=== PATIENT | female | born 1955 | race Caucasian/White ===

== ENCOUNTER 2022-12-30 07:39 | Outpatient (OUT) | payer MEDICARE, OTHER, SELFPAY ==
[2022-12-30 10:17] LABS: Calcium 8.8 mg/dL (8.5-10.1); Estimated GFR (African America >60 (>=60); Estimated GFR (Non-African Ame >60 (>=60)
[2022-12-30 10:40] VITALS: BP 125/70; PULSE 77; RESP 18; TEMP 36.5; O2SAT 94
[2022-12-30] MEDS: DENOSUMAB 60 MG/ML SYRINGE SUBQ (10:59)
== END 2022-12-30 07:40 | disposition home or self-care (01) ==
LOC: LAB 07:39
PROVIDERS: PCP Family Medicine; Visit Provider Obstetrics & Gynecology
DX: M85.80 Other specified disorders of bone density and structure, unspecified site (principal); M19.90 Unspecified osteoarthritis, unspecified site
CPT/HCPCS: 36415; 82310; 82565; 96372; J0897

== ENCOUNTER 2023-07-07 08:25 | Emergency (ER) | payer MEDICARE, OTHER, SELFPAY ==
[2023-07-07 08:34] VITALS: BP 127/73; PULSE 61; RESP 16; TEMP 36.6; O2SAT 99; BMI 23.7
--- NOTE | 2023-07-07 08:40 | ECG_ITS ---
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
--- NOTE | 2023-07-07 08:41 | ED.CHESTPAI1 ---
HPI - Chest Pain General Chief Complaint: Chest Pain Stated Complaint: CHEST PAIN Time Seen by Provider: 07/07/23 08:39 Source: patient and family Mode of arrival: Wheelchair History of Present Illness HPI narrative: patient here with history of chest pain. She currently is undergoing chemotherapy and has a infusion pump that cycles her. She's had previous problems with the medication so they tried intravenous therapy with fluorouracil, five FEU, the patient had chest pain episodes previously while on this therapy in the center to the [facility] where she underwent extensive therapeutic testing and stress testing. They felt that she did not have any likelihood of coronary artery disease. Today, approximately 3 AM one didn't pump was infusing she woke up with severe pressure and nausea and diaphoresis. She didn't come into the emergency room until earlier this morning. She did turn the pump off and the discomfort that she was having gradually went away and at this time she does not have any pressure or discomfort at all. Twelve-lead EKG was done on arrival here does not show any evidence of ischemia or injury. Related Data Allergies Allergy/AdvReac Type Severity Reaction Status Date / Time No Known Drug Allergies Allergy Verified 07/07/23 08:36 Exam Narrative Exam Narrative: she is awake alert vital signs are stable she has no discomfort at time of exam. Several family members are present HEENT shows no jugular venous distention. Airway is widely patent with no stridor cough or difficulty breathing. Chest her lungs are completely clear with no wheezes rales or rhonchi. Heart sounds are normal no murmur or arrhythmia. Chest wall is nontender. She has no abdominal discomfort. Extremities show no evidence of swelling deep vein thrombosis or phlebitis. Constitutional Vital Signs, click to edit/add: Last Vital Signs Temp 98 F 07/07/23 08:34 Pulse 61 07/07/23 08:34 Resp 16 07/07/23 08:34 BP 127/73 07/07/23 08:34 Pulse Ox 99 07/07/23 08:34 O2 Del Method Room Air 07/07/23 08:34 Course Vital Signs Vital signs: Vital Signs Temperature 98 F 07/07/23 08:34 Pulse Rate 61 07/07/23 08:34 Respiratory Rate 16 07/07/23 08:34 Blood Pressure 127/73 07/07/23 08:34 Pulse Oximetry 99 12/29/23 08:34 Oxygen Delivery Method Room Air 07/07/23 08:34 Temperature 98 F 07/07/23 08:34 Pulse Rate 61 07/07/23 08:34 Respiratory Rate 16 07/07/23 08:34 Blood Pressure 127/73 07/07/23 08:34 Pulse Oximetry 99 07/07/23 08:34 Oxygen Delivery Method Room Air 07/07/23 08:34 MDM - Chest Pain MDM Narrative Medical decision making narrative: patient's EKG on arrival shows no evidence of ischemia injury or infarct. We did serial troponin both were normal. Her d-dimer is modestly elevated by spoke with her oncologist he does not believe she needs CTA and I would agree with that. She appears to be having coronary vasospasm from her medication. The oncologist just that she call the office to device other treatment strategies Lab Data Labs: Lab Results 07/07/23 07/07/23 Range/Units 08:52 11:07 WBC 4.8 (4.0-11.0) 10^3/uL RBC 3.71 L (4.20-5.40) 10^6/uL Hgb 10.8 L (12.0-16.0) g/dL Hct 33.4 L (36.0-48.0) % MCV 90.0 (81.0-99.0) fL MCH 29.1 (26.7-34.0) pg MCHC 32.3 (29.9-35.2) g/dL RDW 13.9 (11.0-15.0) % Plt Count 224 (150-450) 10^3/uL MPV 8.4 L (9.5-13.5) fL Neut % (Auto) 75.7 H (43.0-75.0) % Lymph % (Auto) 17.3 L (20.5-60.0) % Stanton % (Auto) 5.2 (1.7-12.0) % Eos % (Auto) 1.0 (0.9-7.0) % Baso % (Auto) 0.6 (0.2-2.0) % Neut # (Auto) 3.6 (1.4-6.5) 10^3/uL Lymph # (Auto) 0.8 L (1.2-3.8) 10^3/uL Stanton # (Auto) 0.3 (0.3-0.8) 10^3/uL Eos # (Auto) 0.1 (0.0-0.7) 10^3/uL Baso # (Auto) 0.0 (0.0-0.1) 10^3/uL Abs Immat Gran (auto) 0.01 (0.00-0.03) 10^3/uL Imm/Tot Granulo (auto) 0.2 (0.0-0.5) % D-Dimer 1.08 H* (<=0.59) mg/L FEU Sodium 142 (136-145) mmol/L Potassium 3.5 (3.5-5.1) mmol/L Chloride 104 (98-107) mmol/L Carbon Dioxide 27.2 (21.0-32.0) mmol/L Anion Gap 14.3 BUN 17.0 (7.0-18.0) mg/dL Creatinine 0.96 (0.55-1.02) mg/dL Est GFR ( Amer) >60 (>=60) Est GFR (Non-Af Amer) 58 L (>=60) BUN/Creatinine Ratio 17.7 Glucose 123 H (74-106) mg/dL Calcium 9.4 (8.5-10.1) mg/dL Total Bilirubin 0.4 (0.2-1.0) mg/dL AST 25 (15-37) U/L ALT 37 (14-59) U/L Alkaline Phosphatase 64 (46-116) U/L Troponin I High Sens 10.5 11.7 (4.0-51.3) pg/mL Total Protein 6.8 (6.4-8.2) g/dL Albumin 3.4 (3.4-5.0) g/dL Globulin 3.4 g/dL Albumin/Globulin Ratio 1.0 Discharge Plan Discharge Chief Complaint: Chest Pain Clinical Impression: Chest pain Patient Disposition: Home, Self-Care Time of Disposition Decision: 11:58 Additional Instructions: call your oncology doctor to discuss the next treatment option Stand Alone Forms: Portal Instructions Referrals: CHARLES BAZZI [Primary Care Provider] - 1 week
[2023-07-07 08:57] LABS: Basophils Percent Auto 0.6 % (0.2-2.0); Eosinophils Absolute Auto 0.1 10^3/uL (0.0-0.7); Hematocrit 33.4 % (36.0-48.0); Hemoglobin 10.8 g/dL (12.0-16.0); Immature Granulocytes Abs Auto 0.01 10^3/uL (0.00-0.03); Immature Granulocytes Pct Auto 0.2 % (0.0-0.5); Lymphocytes Absolute Auto 0.8 10^3/uL (1.2-3.8); Lymphocytes Percent Auto 17.3 % (20.5-60.0); Mean Corpuscular HGB Conc 32.3 g/dL (29.9-35.2); Mean Corpuscular Hemoglobin 29.1 pg (26.7-34.0); Mean Platelet Volume 8.4 fL (9.5-13.5); Monocytes Absolute Auto 0.3 10^3/uL (0.3-0.8); Monocytes Percent Auto 5.2 % (1.7-12.0); Neutrophils Absolute Auto 3.6 10^3/uL (1.4-6.5); Neutrophils Percent Auto 75.7 % (43.0-75.0); Platelet Count 224 10^3/uL (150-450); Red Blood Count 3.71 10^6/uL (4.20-5.40); Red Cell Distribution Width 13.9 % (11.0-15.0); White Blood Count 4.8 10^3/uL (4.0-11.0)
[2023-07-07 09:18] LABS: D Dimer 1.08 mg/L FEU (<=0.59)
[2023-07-07 09:19] LABS: Alanine Aminotransferase 37 U/L (14-59); Albumin Level 3.4 g/dL (3.4-5.0); Alkaline Phosphatase 64 U/L (46-116); Anion Gap 14.3; Aspartate Amino Transferase 25 U/L (15-37); BUN Creatinine Ratio 17.7; Bilirubin Total 0.4 mg/dL (0.2-1.0); Calcium 9.4 mg/dL (8.5-10.1); Carbon Dioxide 27.2 mmol/L (21.0-32.0); Chloride 104 mmol/L (98-107); Estimated GFR (African America >60 (>=60); Estimated GFR (Non-African Ame 58 (>=60); Globulin 3.4 g/dL; Glucose 123 mg/dL (74-106); Potassium 3.5 mmol/L (3.5-5.1); Sodium 142 mmol/L (136-145); Total Protein 6.8 g/dL (6.4-8.2); Troponin I High Sensitivity 10.5 pg/mL (4.0-51.3)
[2023-07-07 11:29] LABS: Troponin I High Sensitivity 11.7 pg/mL (4.0-51.3)
== END 2023-07-07 12:06 | disposition home or self-care (01) ==
PROVIDERS: Emergency Provider Emergency Medicine Emergency Medical Services; PCP Family Medicine
DX: R07.9 Chest pain, unspecified (principal); Z79.60 Long term (current) use of unspecified immunomodulators and immunosuppressants
CPT/HCPCS: 36415; 80053; 84484; 85025; 85378; 93005; 99284

== ENCOUNTER 2023-07-07 12:32 | Emergency (ER) | payer MEDICARE, OTHER, SELFPAY ==
[2023-07-07] VITALS (11 sets, daily range): BP systolic 135–149; BP diastolic 76–85; PULSE 60–82; RESP 12–20; TEMP 36.3; O2SAT 98–100; BMI 22.5
--- NOTE | 2023-07-07 12:55 | ED.CHESTPAI1 ---
HPI - Chest Pain General Chief Complaint: Nausea/Vomiting/Diarrhea Stated Complaint: NAUSEA Time Seen by Provider: 07/07/23 12:55 Source: patient Mode of arrival: Wheelchair Limitations: no limitations History of Present Illness HPI narrative: patient was just discharged from this emergency room was felt to have vasospastic chest pain from her chemotherapy. She was asymptomatic durring her entire stay here. She was in the parking lot and started recurring development of the chest pain.she's been told that she has that she should take nitroglycerin but has never done that previously. Related Data Allergies Allergy/AdvReac Type Severity Reaction Status Date / Time No Known Drug Allergies Allergy Verified 07/07/23 12:41 Exam Narrative Exam Narrative: wasn't cooperative. Family members she's not having discomfort at this time. She says it tends to occur when she is up and ambulatory. Limited physical examination shows her lungs still be clear heart rate and rhythm are normal she is on a monitor. A 12-lead EKG was done on arrival here does show mild T-wave inversion over lead V1 and V2 that was not present before. Rest EKG is normal. She was placed on a Nitro-Dur patch and observed. Repeat cardiac troponin was done and is negative and she remained asymptomatic. Constitutional Vital Signs, click to edit/add: Last Vital Signs Temp 97.4 F L 07/07/23 12:41 Pulse 77 07/07/23 12:41 Resp 20 07/07/23 12:41 BP 149/85 H 07/07/23 12:41 Pulse Ox 100 07/07/23 12:41 O2 Del Method Room Air 07/07/23 12:41 Course Vital Signs Vital signs: Vital Signs Temperature 97.4 F L 07/07/23 12:41 Pulse Rate 77 07/07/23 12:41 Respiratory Rate 20 07/07/23 12:41 Blood Pressure 149/85 H 07/07/23 12:41 Pulse Oximetry 100 07/07/23 12:41 Oxygen Delivery Method Room Air 07/07/23 12:41 Temperature 97.4 F L 07/07/23 12:41 Pulse Rate 77 07/07/23 12:41 Respiratory Rate 20 07/07/23 12:41 Blood Pressure 149/85 H 07/07/23 12:41 Pulse Oximetry 100 07/07/23 12:41 Oxygen Delivery Method Room Air 07/07/23 12:41 MDM - Chest Pain MDM Narrative Medical decision making narrative: after laboratory testing completed on the 2nd visit I spoke with Dr. Morfin with cardiology. He thinks the strategy of using nitrates is reasonable. He advised placing her on Imdur 30 mg. He states he'll have his office retailed to her and get her and is in the park as a appointment. In the meantime they can follow up with oncology to determine the ongoing usage of 5-FU for her lung cancer Discharge Plan Discharge Chief Complaint: Nausea/Vomiting/Diarrhea Clinical Impression: Chest pain Patient Disposition: Home, Self-Care Time of Disposition Decision: 15:15 Additional Instructions: remove patch tomorrow and then start Imdur [address]Dr. Pride's office will call you for follow-up. Stand Alone Forms: Portal Instructions Referrals: CHARLES BAZZI [Primary Care Provider] - 1 week
--- NOTE | 2023-07-07 12:57 | ECG_ITS ---
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
[2023-07-07] MEDS: NITROGLYCERIN 0.1 MG/HR PATCH.TD24 1 EACH TD (13:12)
[2023-07-07] MEDS: ASPIRIN 81 MG TAB.CHEW 162 MG PO (13:12)
[2023-07-07] MEDS: ONDANSETRON 4 MG RAPDIS TABLET SL (13:23)
[2023-07-07 13:40] LABS: Troponin I High Sensitivity 11.8 pg/mL (4.0-51.3)
== END 2023-07-07 15:28 | disposition home or self-care (01) ==
PROVIDERS: Emergency Provider Emergency Medicine Emergency Medical Services; PCP Family Medicine
DX: R07.9 Chest pain, unspecified (principal); Z79.60 Long term (current) use of unspecified immunomodulators and immunosuppressants
CPT/HCPCS: 36415; 80053; 84484; 85025; 85378; 93005; 99284

== ENCOUNTER 2024-02-21 20:26 | Outpatient (REF) | payer MEDICARE, OTHER, SELFPAY ==
--- OUTSIDE RECORDS SUMMARY | 2024-02-21 20:33 | XMS_ITS | CCD ---
Author Organization [facility] Care Team Providers Care Hull Line Crew Member Name Role Phone CHARLES BAZZI Unavailable Unavailable CHARLES BAZZI Unavailable Unavailable Caroline Rangel II Unavailable [phone] DO Charles Bazzi Primary Care Provider [phone] MD Caroline Rangel II Attending Provider [phone] Charles Bazzi Unavailable DO Charles Bazzi Primary Care Provider DO Charles Bazzi Attending Provider [phone] Charles Bazzi Unavailable Unavailable Unavailable CAROLINE RANGEL Attending Unavailable CAROLINE RANGEL Admitting Unavailable JEREMIE ., DR JHAVERI Consulting Unavailable JEREMIE ., DR JHAVERI Admitting Unavailable JEREMIE ., DR JHAVERI Attending Unavailable JEREMIE ., DR JHAVERI Consulting Unavailable JEREMIE ., DR JHAVERI Admitting Unavailable JEREMIE ., DR JHAVERI Attending Unavailable Ani Can Consulting Unavailable Tomi Greene Unavailable Unavailable Primary Care Provider Unavailabl Charles Ho Primary Care Provider Osmin KIRKPATRICK, Colleen Mathis Unavailable [phone] Cj VELASQUEZ, Darnell Unavailable Naheed Elias PA-C Unavailable [phone] DO Charles Bazzi Primary Care Provider MD Tomi Greene Attending Provider [phone] AUSTIN Rangel Emergency Provider [phone] DO Jordan Hare Admit Provider [phone] DO Jordan Hare Attending Provider KAYA Harmon Other Provider Unavailable DO Akila Stokes Other Provider MD Troy Combs Other Provider MD David Espinosa Other Provider MD Marcos Rios Other Provider MD Blas Villagomez Other Provider ROXY Wyatt Other Provider MD Amanda Mora Other Provider MD Mali Camposammed Naerlinda Other Provider MD Kandace Shah Other Provider Ernesto [facility] Arlette Church Other Provider MD Wendy Ocasio Other Provider MD Agustin Negron Attending Provider MD Darnell Corona Other Provider [phone] Charles Bazzi Primary Care Unavailabl khadra Bazzi, Dr. Charles Joseph Primary Care Unavailabl Dr. Marcos Pitts Attending Cristia marito Rios, Dr. Anna Referring Dr. Charles [facility] DO Charles Ho Primary Care Provider AUSTIN Rangel Emergency Provider DO Jordan Hare Admit Provider KAYA Harmon Other Provider Unavailable DO Akila Stokes Other Provider MD Troy Combs Other Provider MD David Espinosa Other Provider MD Marcos Rios Other Provider MD Blas Villagomez Other Provider ROXY Wyatt Other Provider MD Amanda Mora Other Provider MD Jomar Campos Other Provider MD Kandace Shah Other Provider Ernesto [facility] Arlette Church Other Provider MD Wendy Ocasio Other Provider MD Agustin Negron Attending Provider MD Darnell Corona Other Provider MD Delfino Vargas Attending Provider Charles Bazzi DO Primary Care Provider MARCOS RIOS Attending Unavailable CHARLES BAZZI R Primary Care Unavailable CHARLES BAZZI Primary Care Unavailable JACKIE SINGERISTEN Referring Unavailable AMINA MUNOZ Attending Unavailable CHARLES BAZZI Primary Care Unavailable PRACHI LOZANO Attending Unavailable JLUIS, CHARLES JOSEPH Primary Care Unavailable LAISHA SINGER Referring Unavailable KURT, SYBIL E Attending Unavailable Maryuri Limon Unavailable Unavailable DO Charles Bazzi Primary Care Provider DO Patrice Gomez Emergency Provider Unavai MD Miguel Ángel Dobson Admit Provider [phone] MD Miguel Ángel Delgadillo Attending Provider [phone] MD Tim Garduno Attending Provider [phone] MD Delfino Vargas Other Provider DO Charles Bazzi Attending Provider MD Mary Al Emergency Provider MD Patrice Hooks Admit Provider MD Patrice Hooks Attending Provider [phone] DO Jm Trujillo Attending Provider [phone] DO Ion Eckert Other Provider Jluis, Charles Joseph Primary Care Provider [phone] BAN, LAISHA Admitting Unavailable BAN, LAISHA Attending Unavailable KUNS, CHARLES OPAL Primary Care Unavailable JIMENA HUDSON Referring Unavaila ble KUNS, CHARLES OPAL Primary Care Unavailable BAN, LAISHA Admitting Unavailable BAN, LAISHA Attending Unavailable KUNS, CHARLES OPAL Primary Care Unavailable PADMINI LANCE Admitting Unavailable BAN, LAISHA Attending Unavailable Kuns, Charles Primary Care Unavailable Jordan Hare Admitting Unavailable Aggie Harmon Consulting Unavailable Agustin Negron Attending Unavailable Akila Stokes Consulting Unavailable Troy Combs Consulting Unavailable David Espinosa Consulting Unavail able Marcos Rios Consulting Unavailable Blas Villagomez Consulting Unavailab Pushpa Michel Consulting Unavailable Amanda Mora Consulting Unavailable Jomar Campos Consulting Unavailab Kandace Maciel Consulting Unavailable Arlette Orozco Consulting Unavailable Wendy Ocasio Consulting Unavailable Karamlou, Darnell Consulting Unavailable Kuns, Charles Primary Care Unavailable Patrice Hooks Admitting Unavailable Ion Eckert Consulting Unavailable Jm Trujillo Attending Unavailabl e Kuns, Charles Primary Care Unavailable Miguel Ángel Delgadillo Admitting Unavailable Tim Garduno Attending Unavailable Delfino Vargas Consulting Unavailable Delfino Vargas Admitting Unavailable Segundot Attending Unavailable Kuns, Charles Primary Care Unavailable Asaad, Imad Admitting Unavailable Asaad, Imad Attending Unavailable Kuns, Charles Primary Care Unavailable Kuns, Charles Admitting Unavailable Kuns, Charles Attending Unavailable Kuns, Charles Primary Care Unavailable KUNS, CHARLES OPAL Primary Care Unavailable KARAMLOU, DARNELL Referring Unavailable BAN, LAISHA Attending Unavailable KUNS, CHARLES OPAL Primary Care Unavailable KARAMLOU, DARNELL Referring Unavailable KUNS, CHARLES OPAL Primary Care Unavailable KUNS, CHARLES OPAL Primary Care Unavailable KARAMLOU, DARNELL Referring Unavailable KUNS, CHARLES OPAL Primary Care Unavailable KARAMLOU, DARNELL Referring Unavailable KUNS, CHARLES OPAL Primary Care Unavailable KARAMLOU, DARNELL Attending Unavailable KARAMLOU, DARNELL Referring Unavailable KUNS, CHARLES OPAL Primary Care Unavailable KARAMLOU, DARNELL Referring Unavailable KUNS, CHARLES OPAL Primary Care Unavailable KARAMLOU, DARNELL Referring Unavailable KUNS, CHARLES OPAL Primary Care Unavailable KARAMLOU, DARNELL Attending Unavailable KUNS, CHARLES OPAL Primary Care Unavailable KARAMLOU, DARNELL Referring Unavailable KUNS, CHARLES OPAL Primary Care Unavailable KARAMLOU, DARNELL Referring Unavailable KUNS, CHARLES OPAL Primary Care Unavailable Del HUDSON Attending Unavailable KUNS, CHARLES OPAL Primary Care Unavailable KUNS, CHARLES OPAL Primary Care Unavailable KARAMLOU, DARNELL Attending Unavailable KUNS, CHARLES OPAL Primary Care Unavailable KARAMLOU, DARNELL Attending Unavailable KUNS, CHARLES OPAL Primary Care Unavailable KARAMLOU, DARNELL Referring Unavailable KUNS, CHARLES OPAL Primary Care Unavailable KARAMLOU, DARNELL Referring Unavailable KUNS, CHARLES OPAL Primary Care Unavailable KARAMLOU, DARNELL Attending Unavailable KARAMLOU, DARNELL Referring Unavailable KUNS, CHARLES OPAL Primary Care Unavailable BAN, LAISHA Attending Unavailable BAN, LAISHA Referring Unavailable KUNS, CHARLES OPAL Primary Care Unavailable KUNS, CHARLES OPAL Primary Care Unavailable KUNS, CHARLES OPAL Primary Care Unavailable KARAMLOU, DARNELL Attending Unavailable KUNS, CHARLES OPAL Primary Care Unavailable KARAMLOU, DARNELL Referring Unavailable Del HUDSON Attending Unavailable KUNS, CHARLES OPAL Primary Care Unavailable Del HUDSON Attending Unavailable KUNS, CHARLES OPAL Primary Care Unavailable KARAMLOU, DARNELL Attending Unavailable KUNS, CHARLES OPAL Primary Care Unavailable KARAMLOU, DARNELL Referring Unavailable KUNS, CHARLES OPAL Primary Care Unavailable KUNS, CHARLES OPAL Primary Care Unavailable BAN, LAISHA Referring Unavailable KUNS, CHARLES OPAL Primary Care Unavailable WILLNERBRANDIE Attending Unavailable BAN, LAISHA Referring Unavailable KUNS, CHARLES OPAL Primary Care Unavailable WILLNERCHITRAYN Attending Unavailable KUNS, CHARLES OPAL Primary Care Unavailable CYNTHIA ALE Referring Unavailable BAN, LAISHA Referring Unavailable KUNS, CHARLES OPAL Primary Care Unavailable KUNS, CHARLES OPAL Primary Care Unavailable CYNTHIA, ALE Attending Unavailable CYNTHIA, ALE Referring Unavailable KUNS, CHARLES OPAL Primary Care Unavailable Del HUDSON Attending Unavailable KUNS, CHARLES OPAL Primary Care Unavailable KUNS, CHARLES OPAL Primary Care Unavailable PRINCESS MOORE Attending Unavailable KUNS, CHARLES OPAL Primary Care Unavailable Del HUDSON Attending Unavailable KUNS, CHARLES OPAL Primary Care Unavailable KUNS, CHARLES OPAL Primary Care Unavailable KUNS, CHARLES OPAL Primary Care Unavailable KUNS, CHARLES OPAL Primary Care Unavailable KUNS, CHARLES OPAL Primary Care Unavailable Del HUDSON Attending Unavailable KUNS, CHARLES OPAL Primary Care Unavailable KUNS, CHARLES OPAL Primary Care Unavailable KUNS, CHARLES OPAL Primary Care Unavailable Del HUDSON Attending Unavailable KUNS, CHARLES OPAL Primary Care Unavailable Del HUDSON Attending Unavailable KARAMLOU, DARNELL Referring Unavailable KUNS, CHARLES OPAL Primary Care Unavailable SONIDO LAISHA Attending Unavailable Del HUDSON Attending Unavailable KUNS, CHARLES OPAL Primary Care Unavailable KUNS, CHARLES OPAL Primary Care Unavailable KARAMLOU, DARNELL Attending Unavailable KUNS, CHARLES OPLA Primary Care Unavailable KUNS, CHARLES OPAL Primary Care Unavailable KUNS, CHARLES OPAL Primary Care Unavailable KUNS, CHARLES OPAL Primary Care Unavailable KUNS, CHARLES OPAL Primary Care Unavailable KUNS, CHARLES OPAL Primary Care Unavailable KUNS, CHARLES OPAL Primary Care Unavailable KUNS, CHARLES OPAL Primary Care Unavailable Del HUDSON Referring Unavailable KUNS, CHARLES OPAL Primary Care Unavailable Del HUDSON Attending Unavailable KUNS, CHARLES OPAL Primary Care Unavailable Del HUDSON Attending Unavailable KUNS, CHARLES OPAL Primary Care Unavailable KUNS, CHARLES OPAL Primary Care Unavailable KUNS, CHARLES OPAL Primary Care Unavailable KARAMLOU, DARNELL Referring Unavailable KUNS, CHARLES OPAL Primary Care Unavailable PRINCESS MOORE Referring Unavailable KUNS, CHARLES OPAL Primary Care Unavailable KUNS, CHARLES OPAL Primary Care Unavailable KUNS, CHARLES OPAL Primary Care Unavailable KUNS, CHARLES OPAL Primary Care Unavailable KUNS, CHALRES OPAL Primary Care Unavailable KUNS, CHARLES OPAL Primary Care Unavailable Del HUDSON Attending Unavailable NAVEEDS, CHARLES OPAL Primary Care Unavailable KUNS, CHARLES OPAL Primary Care Unavailable DARNELL CORONA Attending Unavailable KUNS, CHARLES OPAL Primary Care Unavailable Del HUDSON Attending Unavailable NAVEEDS, CHARLES OPAL Primary Care Unavailable KUNS, CHARLES OPAL Primary Care Unavailable PRINCESS MOORE Referring Unavailable Del HUDSON Attending Unavailable NAVEEDS, CHARLES OPAL Primary Care Unavailable KUNS, CHARLES OPAL Primary Care Unavailable KUNS, CHARLES OPAL Primary Care Unavailable DELFINO DAVIS Attending Unavailable SUDHA THAPA Attending Unavailable LIANA, OSCAR Contreras Attending Unavailable LIANA, OSCAR Contreras Referring Unavailable LIANA, OSCAR Contreras Attending Unavailable LIANA, OSCAR Contreras Attending Unavailable LIANA, OSCAR Contreras Attending Unavailable LIANA, OSCAR Contreras Referring Unavailable DELFINO DAVIS Attending Unavailable DARNELL CORONA Referring Unavailable DELFINO Crawley Attending Unavailable DELFINO Crawley Attending Unavailable DARNELL CORONA Referring Unavailable Medications Current Medications Medication Drug Class(es) Dates Sig (Normalized) Sig (Original) ALPRAZolam 0.25 mg oral tablet (20 sources) Benzodiazepine Start: 08-19-2022 End: 07-25-2023 take 1 tablet by mouth every twenty-four hours as needed ALPRAZolam (Xanax) 0.25 mg tablet Take 1 tablet (0.25 mg) by mouth once daily as needed. 0 08/19/2022 07/25/2023 Discontinued (Therapy completed) Start: 11-17-2021 take 1 tablet by jaci twice daily as needed Xanax 0.25 MG 1 tablet Orally Twice a day prn November, Active amLODIPine 5 mg / benazepril hydrochloride 10 mg oral capsule (20 sources) Dihydropyridine Calcium Channel Tanya, Angiotensin Converting Enzyme Inhibitor Start: 09-30-2023 take 1 capsule by mouth once daily Amlodipine-Benazepril Active 1 CAP PO Daily September 30, 2023 12:00am Start: 02-28-2018 End: 09-07-2023 take 1 tablet by mouth once daily Amlodipine-Benazepril Discontinued 1 TAB PO Daily November 02, 2018 12:00am September 07, 2023 9:32am Comment on above: Take 1 capsule by [facility] every morning. amoxicillin 500 mg oral tablet (20 sources) Penicillin-class Antibacterial Start: 06-13-20 23 Amoxicillin 500 mg tablet FOR DENTAL WORK 0 06/13/2023 Active Comment on above: FOR DENTAL WORK Aspir-81 81 MG (20 sources) Start: 02-29-20 18 take 1 tablet by mouth once daily Aspir-81 81 MG 1 tablet Orally Once a day Feb, Active aspirin 81 mg delayed release oral tablet (20 sources) Platelet Aggregation Inhibitor, Nonsteroidal Anti-inflammatory Drug Start: 11-03-19 19 take 81 mg by mouth once daily Aspirin Active 81 MG PO Daily November 02, 2018 12:00am Comment on above: Take 81 mg by mouth once daily. azithromycin 250 mg oral tablet (2 sources) Macrolide Antimicrobial Start: 05-25-20 21 Zithromax Z-Lazaro 250 MG 2 tablet on the first day, then 1 tablet daily for 4 days Orally Once a day for 5 day(s) May, Active Bacillus coagulan-calcium carb (DIGESTIVE ADVANTAGE PROBIOTIC) 2 billion cell- 140 mg cap (3 sources) Start: 11-10-19 End: 12-10-19 24 take 1 capsule by mouth once daily Bacillus coagulan-calcium carb (DIGESTIVE ADVANTAGE PROBIOTIC) 2 billion cell- 140 mg cap Take 1 capsule by mouth once daily. Patient should start on November 10, 2023. 30 capsule 0 11/10/2023 12/10/2023 Active Calcium Carbonate (2 sources) take 1 tablet by mouth once daily calcium carbonate (CALCIUM 500 ORAL) Take 1 tablet by mouth once daily. 0 Active Calcium 500 MG T ABS TAKE 1 TABLET DAILY. Quantity: 0 Refills: 0 Ordered: 26-Oct-2022 DO Active 1 ml denosumab 60 mg/ml prefilled syringe (14 sources) RANK Ligand Inhibitor Start: 06-26-2023 Denosuma b (Prolia) 60 mg/mL Syringe Active 60 MG SUBCUT EVERY 6 MONTHS June 26, 2023 1:00am Start: 03-06-2023 End: 04-05-2023 Denosumab (Prolia) 60 mg/mL Syringe Discontinued 60 MG SUBCUT EVERY 6 MONTHS March 06, 2023 12:00am April 05, 2023 3:37pm diclofenac sodium 0.01 mg/mg topical gel (20 sources) Nonsteroidal Anti-inflammatory Drug Start: 05-11-2022 Diclofenac Sodium 1 % 1-2 grams to affected area Externally Four times a day for 30 days May, Active Start: 02-11-2022 Voltaren 1 % a pply 1-2 grams to affected area Externally up to 4x's daily for 30 days Feb, Active Start: 02-11-2022 Voltaren 1 % a pply 1-2 grams to affected area Externally up to 4x's daily for 30 days Feb, Active 0.4 ml enoxaparin sodium 100 mg/ml prefilled syringe (6 sources) Low Molecular Weight Heparin Start: 08-30-2023 End: 09-20-2023 inject 40 mg by subcutaneous injection every twenty-four hours enoxaparin (LOVENOX) 40 mg/0.4 mL Inject 0.4 mL subcutaneously every 24 hours for 21 days. 8.4 mL 0 08/30/2023 09/20/2023 Active Comment on above: Inject 0.4 mL subcutaneously every 24 ho urs for 21 days. enteric contrast (will be provided with radiology test) (4 sources) Start: 04-28-2023 End: 04-29-2023 enteric contrast (will be provided with radiology test) MRI RECTUM WO/W. Administer, As Directed One Time Only, via Oral, Rectal, both Oral and Rectal, Enteric Tube, Stoma or Indwelling Catheter, Enteric Contrast as designated per enteric contrast guidelines 1 Each 0 04/28/2023 04/29/2023 Active Start: 03-07-2023 End: 03-08-2023 enteric contrast (will be pr ovided with radiology test) MRI RECTUM WO/W. Administer, As Directed One Time Only, via Oral, Rectal, both Oral and Rectal, Enteric Tube, Stoma or Indwelling Catheter, Enteric Contrast as designated per enteric contrast guidelines 1 Each 0 03/07/2023 03/08/2023 Start: 03-07-2023 End: 03-08-2023 enteric contrast (will be pr ovided with radiology test) MRI RECTUM WO/W. Administer, As Directed One Time Only, via Oral, Rectal, both Oral and Rectal, Enteric Tube, Stoma or Indwelling Catheter, Enteric Contrast as designated per enteric contrast guidelines 1 Each 0 03/07/2023 03/08/2023 Active Comment on above: MRI RECTUM WO/W. Adm inister, As Directed One Time Only, via Oral, Rectal, both Oral and Rectal, Enteric Tube, Stoma or Indwelling Catheter, Enteric Contrast as designated per enteric contrast guidelines iv contrast (will be provided with radiology test) (4 sources) Start: 04-28-2023 End: 04-29-2023 iv contrast (will be provided with radiology test) MRI Rectum Inject, intravenously, once for 1 dose. No IV access, insert saline lock prior to the beginning of sedation, infusion, injection of imaging exam. Discontinue saline lock post exam. If Pt has a central line or IVAD, may access for administration according to line specific nursing protocol. Once exam is complete flush line and de-access according to line specific nursing protocol in the MR contrast administration guidelines link. 1 Each 0 04/28/2023 04/29/2023 Active Start: 03-07-2023 End: 03-08-2023 iv contrast (will be provide d with radiology test) MRI Rectum Inject, intravenously, once for 1 dose. No IV access, insert saline lock prior to the beginning of sedation, infusion, injection of imaging exam. Discontinue saline lock post exam. If Pt has a central line or IVAD, may access for administration according to line specific nursing protocol. Once exam is complete flush line and de-access according to line specific nursing protocol in the MR contrast administration guidelines link. 1 Each 0 03/07/2023 03/08/2023 Start: 03-07-2023 End: 03-08-2023 iv contrast (will be provide d with radiology test) MRI Rectum Inject, intravenously, once for 1 dose. No IV access, insert saline lock prior to the beginning of sedation, infusion, injection of imaging exam. Discontinue saline lock post exam. If Pt has a central line or IVAD, may access for administration according to line specific nursing protocol. Once exam is complete flush line and de-access according to line specific nursing protocol in the MR contrast administration guidelines link. 1 Each 0 03/07/2023 03/08/2023 Active Comment on above: MRI Rectum Inject, i ntravenously, once for 1 dose. No IV access, insert saline lock prior to the beginning of sedation, infusion, injection of imaging exam. Discontinue saline lock post exam. If Pt has a central line or IVAD, may access for administration according to line specific nursing protocol. Once exam is complete flush line and de-access according to line specific nursing protocol in the MR contrast administration guidelines link. Lactobacillus Comb No.10 (Probiotic) 20 billion cell Capsule (8 sources) Start: 03-06-2023 Lactobacillus Comb No.10 (Probiotic) 20 billion cell Capsule Active 85561 MMU CELLS PO Daily March 05, 2023 11:00pm administer with a meal Start: 03-06-2023 Lactobacillus Comb No.10 (Probiotic) 20 billion cell Capsule Active 01314 MMU CELLS PO Daily March 06, 2023 12:00am administer with a meal lactobacillus combination no.4 (Probiotic) 3 billion cell capsule (1 source) End: 07-25-2023 lactobacillus combination no.4 (Probiotic) 3 billion cell capsule Take 1 capsule by mouth once daily. 0 07/25/2023 Discontinued (Therapy completed) Magnesium (20 sources) Start: 03-06-2023 take 500 mg by mouth once daily Magnesium Active 500 MG PO Daily March 05, 2023 11:00pm Start: 03-06-2023 take 500 mg by mouth once daily Magnesium Active 500 MG PO Daily March 06, 2023 12:00am End: 06-20-2023 Magnesium 250 mg tab Take 50 0 mg by mouth. 0 06/20/2023 Discontinued Magnesium 250 mg tab Take 500 mg by mouth. 0 Active Magnesium 500 MG TABS Take 1 tablet daily Quantity: 0 Refills: 0 Ordered: 26-Oct-2022 DO Active Comment on above: Take 500 mg by mouth . magnesium gluconate 500 mg oral tablet (1 source) take 1 tablet by mouth once daily magnesium, as gluconate, (Mag-G) 27 mg magnesium (500 mg) tablet Take 1 tablet (27 mg) by mouth once daily. 0 Active meloxicam 15 mg oral tablet (20 sources) Nonsteroidal Anti-inflammatory Drug Start: 02-27-2023 take 15 mg by mouth once daily Meloxicam Active 15 MG PO Daily March 06, 2023 12:00am Comment on above: Take 1 tablet by jaci th every afternoon. Take 1 tablet by jaci th once daily. Bocodwtr-Jgm-Kvlh-F a-Lutein (Multivitamin Women 50 Plus) 8 mg iron-400 mcg-300 mcg Tablet (3 sources) Start: 11-02-2018 take 1 tablet by mouth once daily Wwomajmt-Bri-Sbwy- Fa-Lutein (Multivitamin Women 50 Plus) 8 mg iron-400 mcg-300 mcg Tablet Active 1 TAB PO Daily November 01, 2018 11:00pm Start: 11-02-2018 take 1 tablet by jaci once daily Kkyfctta-Bei-Fwlw-Fa-Lutein (Multivitami n Women 50 Plus) 8 mg iron-400 mcg-300 mcg Tablet Active 1 TAB PO Daily November 02, 2018 12:00am Multivitamin Gummies Womens - (20 sources) Multivitamin Gum mies Womens - Orally Active [place] 3 Fish Oil (20 sources) Fost[place] 3 Fish Oil one oral daily Active [place] 6-Smh-Xac-Fish Oil (Fish Oil) 1,000 mg (120 mg-180 mg) Capsule (11 sources) Start: 11-02-2018 take 1 capsule by mouth once daily [place] 1-Jfg-Dmx-Fish Oil (Fish Oil) 1,000 mg (120 mg-180 mg) Capsule Active 1 CAP PO Daily November 01, 2018 11:00pm Start: 11-02-2018 take 1 capsule by mo [facility] once daily [place] 3-Qnx-Khs-Fish Oil (Fish Oil) 1,000 mg (120 mg-180 mg) Capsule Active 1 CAP PO Daily November 02, 2018 12:00am omega 9-lzi-rjg-fish oil (Fish OiL) 1,000 mg (120 mg-180 mg) capsule (1 source) take 1 capsule by mouth once daily omega 6-puj-jri-fish oil (Fish OiL) 1,000 mg (120 mg-180 mg) capsule Take 1 capsule (1,000 mg) by mouth once daily. 0 Active omeprazole 40 mg delayed release oral capsule (20 sources) Proton Pump Inhibitor Start: 07-09-20 18 End: 04-05-20 take 1 capsule by mouth once daily omeprazole (PRILOSEC) 40 mg capsule Take 40 mg by mouth once daily. 0 07/09/2018 Active Comment on above: Take 1 capsule by mo [facility] every afternoon. Take 40 mg by mouth once daily. ondansetron 8 mg disintegrating oral tablet (20 sources) Serotonin-3 Receptor Antagonist Start: 03-23-20 23 End: 02-06-20 take 1 tablet by mouth every eight hours as needed ondansetron orally disintegrating (ZOFRAN ODT) 8 mg disintegrating tablet Take 1 tablet by mouth every 8 hours as needed for nausea/vomiting. 90 tablet 2 02/06/2024 Active Start: 03-21-2023 End: 02-06-2024 take 1 tablet by mouth every eight hours as needed ondansetron (ZOFRAN) 8 mg tablet Take 1 tablet by mouth every 8 hours as needed for nausea/vomiting. 90 tablet 2 03/21/2023 02/06/2024 Discontinued Comment on above: Take 1 tablet by [facility] th every 8 hours as needed for nausea/vomiting. 24 hr oxybutynin chloride 15 mg extended release oral tablet (20 sources) Cholinergic Muscarinic Antagonist Start: take 1 tablet by mouth every twenty-four hours oxybutynin ER (DITROPAN XL) 15 mg 24 hr Extended Rel Tab Take 15 mg by mouth. 0 11/11/2022 Active Start: 02-28-2018 take 15 mg by mouth once daily Oxybutynin Chloride Active 15 MG PO Daily November 02, 2018 12:00am Comment on above: Take 15 mg by mouth. oxyCODONE hydrochloride 5 mg oral tablet (5 sources) Opioid Agonist Start: 11-09-2023 End: 11-17-2023 take 1 tablet by mouth every six hours as needed oxyCODONE IR (ROXICODONE) 5 mg immediate release tablet Indications: Post-op pain Take 1 tablet by mouth every 6 hours as needed for up to 7 days. 25 tablet 0 11/09/2023 11/17/2023 Active Start: 08-29-2023 End: 09-06-2023 take 1 tablet by mouth every six hours as needed oxyCODONE IR (ROXICODONE) 5 mg immediate release tablet Indications: Post-op pain Take 1 tablet by mouth every 6 hours as needed for up to 7 days. 25 tablet 0 08/29/2023 09/06/2023 Comment on above: Take 1 tablet by jaci th every 6 hours as needed for up to 7 days. polyethylene glycol 3350 557909 mg / potassium chloride 2970 mg / sodium bicarbonate 6740 mg / sodium chloride 5860 mg / sodium sulfate 67860 mg powder for oral solution (3 sources) Osmotic Laxative Start: 02-28-20 Golytely 236 GM At 4:00 pm the day prior to colonoscopy Orally 8 ounces every 15 minutes for 1 days PLEASE CHECK ALLERGIES Feb, Active potassium citrate 99 mg oral tablet (20 sources) End: 06-20-20 take 1 capsule by mouth once daily potassium citrate 99 mg capsule Take 1 capsule by mouth once daily. 0 Active Comment on above: Take 1 tablet by jaci th every morning. probiotic (20 sources) probiotic Active progesterone 100 mg oral capsule (14 sources) Progesterone Start: 06-26-20 take 150 mg by mouth once daily Progesterone Micronized Active 150 MG PO Daily June 26, 2023 1:00am Start: 06-26-2023 take 100 mg by mouth once daily Progesterone Micronized Active 100 MG PO Daily June 26, 2023 1:00am Start: 04-05-2023 End: 06-26-2023 Progesterone Discontinued MG IM April 05, 2023 12:00am June 26, 2023 11:50am vortioxetine 5 mg oral tablet (20 sources) Start: 03-06-2023 take 1 tablet by mouth once daily Vortioxetine (Trintellix) 5 mg tablet Active 5 MG PO Daily October 26, 2023 12:00am Start: 10-03-2022 take 1 tablet by jaci th every twenty-four hours Trintellix 10 MG 1 tablet Orally Once a day for 90 days Sep, Active Start: 09-01-2022 take 1 tablet by jaci th every twenty-four hours Trintellix 5 MG 1 tablet Orally Once a day Aug, Active vortioxetine (TR INTELLIX) 5 mg tablet Take 10 mg by mouth. 0 Active Comment on above: Take 10 mg by mouth. Take 10 mg by mouth once daily. Completed/Discontinued Medications Medication Drug Class(es) Dates Sig (Normalized) Sig (Original) acetaminophen 500 mg oral tablet (20 sources) Start: 08-29-2023 End: 02-06-2024 take 2 tablets by mouth every eight hours acetaminophen (TYLENOL) 500 mg tablet Take 2 tablets by mouth every 8 hours. 100 tablet 0 08/29/2023 02/06/2024 Discontinued Comment on above: Take 2 tablets by mo uth every 8 hours. acetaminophen 325 mg / HYDROcodone bitartrate 5 mg oral tablet (6 sources) Opioid Agonist Start: 06-26-2023 End: 09-30-2023 take 1 tablet by mouth every six hours Hydrocodone-Acetami nophen Discontinued 1 TAB PO Q6H 20 5 June 26, 2023 September 30, 2023 7:51am atropine sulfate 0.025 mg / diphenoxylate hydrochloride 2.5 mg oral tablet (1 source) Anticholinergic, Cholinergic Muscarinic Antagonist, Antidiarrheal Start: 07-12-2023 take 1 tablet by mouth four times daily as needed diphenoxylate-atrop ine (LOMOTIL) 2.5-0.025 mg per tablet Indications: Rectal adenocarcinoma (HCC) , Diarrhea of presumed infectious origin Take 1 tablet by mouth four times a day as needed for up to 30 days. 30 tablet 1 07/12/2023 Active Comment on above: Take 1 tablet by jaci th four times a day as needed for up to 30 days. bifidobacterium animalis [id number] unt / lactobacillus acidophilus [id number] unt oral capsule (1 source) Probiotic CAPS U SE DIRECTED. Quantity: 0 Refills: 0 Ordered: 26-Oct-2022 DO Active 12 hr buPROPion hydrochloride 90 mg / naltrexone hydrochloride 8 mg extended release oral tablet (6 sources) Opioid Antagonist, Aminoketone Start: 02-28-2018 take 2 tablets by mouth every twelve hours Contrave 8-90 MG 2 tablets Orally Twice a day for 30 days Feb, Not-Taking calcium carbonate 1500 mg / cholecalciferol 0.01 mg oral capsule (20 sources) Vitamin D End: 02-06-2024 take 1 tablet by mouth once daily calcium carbonate/vitamin d3(CALCIUM 600 WITH VITAMIN D3 600 MG (1,500 MG)-400 UNIT CAP) Take 1 tablet by mouth once daily. 0 02/06/2024 Discontinued calcium carbonat e/vitamin d3(CALCIUM 600 WITH VITAMIN D3 600 MG (1,500 MG)-400 UNIT CAP) Take one(1) tablet three times daily. 0 Active take 1 tablet by mouth once belinda y Calcium + D 600-200 MG-UNIT 1 tablet Orally Once a day Active Comment on above: Take one(1) tablet t hree times daily. Take 1 tablet by jaci th once daily. calcium carbonate 1250 mg / cholecalciferol 1000 unt / vitamin k 0.4 mg chewable tablet (11 sources) Vitamin D Start: 11-03-19 End: 06-26-20 take 2 tablets by mouth once daily Calcium-Vitamin D3-Vitamin K (Citracal-D3 Soft Chew) 500 mg-1,000 unit-40 mcg Tablet,Chewable Discontinued 2 TAB PO Daily November 02, 2018 12:00am June 26, 2023 11:46am capecitabine 500 mg oral tablet (20 sources) Nucleoside Metabolic Inhibitor Start: 04-05-20 End: 06-26-20 Capecitabine Discontinued MG TABLET April 05, 2023 12:00am June 26, 2023 11:48am Start: 03-21-2023 End: 04-21-2023 take 3 tablets by mouth twice daily capecitabine (XELODA) 500 mg tablet Take 3 tablets (1,500 mg) by mouth twice daily Monday through Monday only on days of radiation. 180 tablet 0 03/21/2023 04/14/2023 Discontinued Comment on above: Take 3 tablets (1,50 0 mg) by mouth twice daily Monday through Monday only on days of radiation. compounded progesterone 50 mg capsule (20 sources) End: take 3 capsules by mouth once daily at bedtime compounded progesterone 50 mg capsule Take 150 mg by mouth daily at bedtime. 0 02/06/2024 Discontinued take 3 capsules by m outh once daily at bedtime compounded progesterone 50 mg capsule Ta ke 150 mg by mouth daily at bedtime. 0 Suspended take 3 capsules by m outh once daily at bedtime compounded progesterone 50 mg capsule Ta ke 150 mg by mouth daily at bedtime. 0 Active Comment on above: Take 150 mg by mouth daily at bedtime. diclofenac sodium 50 mg / miSOPROStol 0.2 mg delayed release oral tablet (5 sources) Nonsteroidal Anti-inflammatory Drug, Prostaglandin E1 Analog Start: 009 End: 023 diclofenac sodium/misoprostol(ART HROTEC 50 50 MG-200 MCG TAB) as directed 0 02/27/2009 03/21/2023 Discontinued Comment on above: as directed docosahexaenoic acid/epa (FISH OIL ORAL) (20 sources) End: 024 take 2000 mg by mouth twice daily docosahexaenoic acid/epa (FISH OIL ORAL) Take 2,000 mg by mouth two times a day. 0 02/06/2024 Discontinued take 2000 mg by mouth twice belinda y docosahexaenoic acid/epa (FISH OIL ORAL) Take 2,000 mg by mouth two times a day. 0 Suspended take 2000 mg by mouth twice belinda y docosahexaenoic acid/epa (FISH OIL ORAL) Take 2,000 mg by mouth two times a day. 0 Active docosahexaenoic acid/epa (FISH OIL ORAL) Take by mouth. 0 Active Comment on above: Take by mouth. Take 2,000 mg by jaci th two times a day. esomeprazole 20 mg delayed release oral capsule (11 sources) Proton Pump Inhibitor Start: 11-03-19 End: 03-06-20 23 take 1 capsule by mouth once daily Esomeprazole Magnesium (Nexium) 20 mg Capsule,Delayed Release(Dr/Ec) Discontinued 20 MG PO Daily November 02, 2018 12:00am March 06, 2023 8:54am ferrous sulfate 325 mg oral tablet (7 sources) Start: 04-06-20 End: 06-26-20 take 1 tablet by mouth once daily Ferrous Sulfate (Ferosul) 325 mg (65 mg iron) tablet Discontinued 325 MG PO Daily April 06, 2023 12:00am June 26, 2023 11:48am Fish Oil CAPS (1 source) Fish Oil CAPS TA KE 1 CAPSULE Daily Quantity: 0 Refills: 0 Ordered: 26-Oct-2022 DO Active gabapentin 100 mg oral capsule (7 sources) Anti-epileptic Agent Start: 11-21-19 End: 02-06-20 24 take 1 capsule by mouth three times daily gabapentin (NEURONTIN) 100 mg capsule Take 1 capsule by mouth three times a day for 30 days. 90 capsule 0 11/21/2023 02/06/2024 Discontinued ibandronic acid 150 mg oral tablet (11 sources) Bisphosphonate Start: 11-03-19 End: 03-06-20 take 1 tablet by mouth every month Ibandronate (Boniva) 150 mg Tablet Discontinued 150 MG PO every month November 02, 2018 12:00am March 06, 2023 9:00am ibuprofen 400 mg oral tablet (8 sources) Nonsteroidal Anti-inflammatory Drug Start: 11-09-19 End: 02-06-20 24 take 1 tablet by mouth every eight hours ibuprofen (MOTRIN) 400 mg tablet Take 1 tablet by mouth every 8 hours. 20 tablet 0 11/09/2023 02/06/2024 Discontinued Lactobacillus acidophilus (20 sources) End: 06-20-20 23 Lactobacillus acidophilus (PROBIOTIC ORAL) Take by mouth. 0 06/20/2023 Discontinued Lactobacillus ac idophilus (PROBIOTIC ORAL) Take by mouth. 0 Active Comment on above: Take by mouth. loperamide hydrochloride 2 mg oral capsule (1 source) Opioid Agonist Start: 08-30-19 24 take 1 capsule by mouth at bedtime loperamide (IMODIUM) 2 mg cap(s) Take 1 capsule by mouth before meals and at bedtime. 120 capsule 1 08/30/2023 Suspended Comment on above: Take 1 capsule by mo [facility] before meals and at bedtime. MEDICATION, NON-DATABASE (20 sources) take 1 dose by mouth once daily MEDICATION, NON-DATABASE Take 1 Each by mouth once daily. Metabolic Maintenance DIM Complete - 100mg Diindolylmethane Supplement with Vitamin E, B12 + Active Folate 0 Active take 1 dose by mouth once daily MEDICATION, NON-DATABASE Take 1 Each by mouth once daily. [employer] guzman mitochondrial micronutrients and a smart combination of alpha lipoic acid, N-acetyl cysteine, and acetyl L-carnitine 0 Active Comment on above: Take 1 Each by mouth once daily. Metabolic Maintenance DIM Complete - 100mg Diindolylmethane Supplement with Vitamin E, B12 + Active Folate Take 1 Each by mouth once daily. [employer] guzman mitochondrial micronutrients and a smart combination of alpha lipoic acid, N-acetyl cysteine, and acetyl L-carnitine methylPREDNISolone 4 mg oral tablet (6 sources) Corticosteroid Start: 2020 Medrol 4 MG as directed Orally May, Not-Taking metroNIDAZOLE 500 mg oral tablet (1 source) Nitroimidazole Antimicrobial Start: 2023 take 1 tablet by mouth three times daily metroNIDAZOLE (FLAGYL) 500 mg tablet Indications: Rectal cancer (HCC) Take 1 tablet by mouth three times a day. Take 1 tablet at 6pm, 7pm, and 11pm, the evening prior to surgery. 3 tablet 0 08/03/2023 Active Comment on above: Take 1 tablet by jaci three times a day. Take 1 tablet at 6pm, 7pm, and 11pm, the evening prior to surgery. Wewzpyik-Hjt-Hfei-Fa-Vit K-Lut (Multivitamin Women 50 Plus) 8 mg iron-400 mcg-300 mcg Tablet (8 sources) Start: 2018 End: 2022 take 1 tablet by mouth once daily Wcmjxvaz-Scp-Cqbx-F a-Vit K-Lut (Multivitamin Women 50 Plus) 8 mg iron-400 mcg-300 mcg Tablet Discontinued 1 TAB PO Daily November 01, 2018 11:00pm March 06, 2023 8:01am Start: 11-02-2018 End: 03-06-2023 take 1 tablet by mouth once daily Uggdturw-Pas-Txoa-Fa-Vit K-Lut (Multivitamin Women 50 Plus) 8 mg iron-400 mcg-300 mcg Tablet Discontinued 1 TAB PO Daily November 02, 2018 12:00am March 06, 2023 9:01am naproxen 500 mg oral tablet (20 sources) Nonsteroidal Anti-inflammatory Drug Start: 11-02-2018 End: 03-06-2023 take 500 mg by mouth once daily Naproxen Discontinued 500 MG PO Daily November 02, 2018 12:00am March 06, 2023 8:56am take 1 tablet by [facility] every twelve hours at mealtime as needed Naproxen 500 MG 1 tablet with food or mi lk as needed Orally every 12 hrs for 90 days Not-Taking neomycin sulfate 500 mg oral tablet (1 source) Aminoglycoside Antibacterial Start: 08-03-2023 neomycin 500 mg tablet Indications: Rectal cancer (HCC) Take 2 tablets by mouth as directed. Take 2 tablet at 6pm, 7pm, and 11pm the evening prior to surgery. 6 tablet 0 08/03/2023 Active Comment on above: Take 2 tablets by mo [facility] as directed. Take 2 tablet at 6pm, 7pm, and 11pm the evening prior to surgery. nitroglycerin 0.4 mg sublingual tablet (20 sources) Nitrate Vasodilator Start: 07-07-2023 End: 02-06-2024 nitroglycerin sublingual (NITROQUICK) 0.4 mg SL tablet Dissolve 1 tablet under the tongue as needed for chest pain, may repeat every 5 minutes if no relief up to 3 times. 25 tablet 0 07/07/2023 02/06/2024 Discontinued (Discontinued by Patient) Comment on above: Dissolve 1 tablet un johnson the tongue as needed for chest pain, may repeat every 5 minutes if no relief up to 3 times. phenazopyridine hydrochloride 100 mg oral tablet (10 sources) Start: 05-01-2023 End: 06-20-2023 take 2 tablets by mouth every eight hours as needed phenazopyridine (PYRIDIUM) 100 mg tablet Take 2 tablets by mouth three times a day as needed. 30 tablet 2 05/01/2023 06/20/2023 Discontinued Comment on above: Take 2 tablets by mo [facility] three times a day as needed. polyethylene glycol 3350 21800 mg powder for oral solution (20 sources) Osmotic Laxative Start: 04-05-2023 End: 09-30-2023 Polyethylene Glycol 3350 (Miralax) 17 gram Powder In Packet Discontinued 17 GM PO Daily April 05, 2023 12:00am September 30, 2023 7:52am Comment on above: Take by mouth once d aily. Dissolve dose in 4 - 8 ounces of liquid and take as directed. potassium 99 mg extended release oral tablet (9 sources) Start: 03-06-2023 End: 06-26-2023 take 99 mg by mouth once daily Potassium Discontinued 99 MG PO Daily March 06, 2023 12:00am June 26, 2023 11:49am take 1 tablet by mouth once belinda y Potassium 99 MG Oral Tablet TAKE 1 TABLET DAILY. Quantity: 0 Refills: 0 Ordered: 26-Oct-2022 DO Active prochlorperazine 10 mg oral tablet (20 sources) Phenothiazine Start: 03-21-2023 End: 02-06-2024 take 1 tablet by mouth every six hours as needed prochlorperazine (COMPAZINE) 10 mg tablet Take 1 tablet by mouth every 6 hours as needed. 100 tablet 2 03/21/2023 02/06/2024 Discontinued Comment on above: [facility] hours as needed. psyllium 3400 mg powder for oral suspension (1 source) Start: 08-30-2023 take 1 dose by mouth three times daily psyllium (METAMUCIL) 3.4 gram packet Take 1 Packet by mouth three times a day. 90 Packet 1 08/30/2023 Suspended Comment on above: Take 1 Packet by jaci three times a day. 2500 mg testosterone 0.01 mg/mg topical gel (20 sources) Androgen Start: 04-05-2023 End: 09-30-2023 Testosterone Discontinued 1 PACKET TRANSDERML Daily April 05, 2023 12:00am September 30, 2023 7:52am End: 02-06-2024 Testosterone 12.5 mg/ 1.25 g heidi (1 %) glpm Apply 2 Pump as directed once daily. 0.5 MIL 0 02/06/2024 Discontinued Testosterone 12. 5 mg/ 1.25 gram (1 %) glpm Apply 4 Pump as directed once daily. 0 Active Comment on above: Apply 4 Pump as dire cted once daily. Apply 2 Pump as dire cted once daily. 0.5 MIL traMADol hydrochloride 50 mg oral tablet (11 sources) Opioid Agonist Start: 11-10-19 End: 03-06-20 take 50 mg by mouth every four hours Tramadol Discontinued 50 MG PO Q4H 20 November 09, 2018 12:00am March 06, 2023 8:57am triamcinolone acetonide 32 mg injection (20 sources) Corticosteroid Start: 02-12-20 Zilretta May, 32 mg Tumeric Curcumin Complex (11 sources) Start: 11-03-19 End: 03-06-20 take 2 capsules by mouth once daily Tumeric Curcumin Complex Discontinued 2 CAP PO Daily November 01, 2018 11:00pm March 06, 2023 8:01am Start: 11-02-2018 End: 03-06-2023 take 2 capsules by mouth once daily Tumeric Curcumin Complex Discontinued 2 CAP PO Daily November 02, 2018 12:00am March 06, 2023 9:01am Start: 11-02-2018 take 2 capsules by m outh once daily Tumeric Curcumin Complex Active 2 CAP PO Daily November 01, 2018 11:00pm Start: 11-02-2018 take 2 capsules by m outh once daily Tumeric Curcumin Complex Active 2 CAP PO Daily November 02, 2018 12:00am venlafaxine 75 mg oral tablet (20 sources) Serotonin and Norepinephrine Reuptake Inhibitor Start: 02-28-2018 End: 03-22-2023 take 75 mg by mouth once daily Venlafaxine Discontinued 75 MG PO Daily November 02, 2018 12:00am March 06, 2023 9:01am Comment on above: Take one(1) tablet d aily. Vitamin D3-Vitamin K2 (Mk4) (K2 Plus D3) 1,000-100 unit-mcg Tablet (8 sources) Start: 04-05-2023 End: 06-26-2023 take 1 tablet by mouth once daily Vitamin D3-Vitamin K2 (Mk4) (K2 Plus D3) 1,000-100 unit-mcg Tablet Discontinued 1 TAB PO Daily April 05, 2023 12:00am June 26, 2023 11:50am Start: 04-05-2023 End: 06-26-2023 take 1 tablet by mouth once daily Vitamin D3-Vitamin K2 (Mk4) (K2 Plus D3) 1,000-100 unit-mcg Tablet Discontinued 1 TAB PO Daily April 04, 2023 11:00pm June 26, 2023 10:50am Start: 04-05-2023 take 1 tablet by jaci th once daily Vitamin D3-Vitamin K2 (Mk4) (K2 Plus D3) 1,000-100 unit-mcg Tablet Active 1 TAB PO Daily April 05, 2023 12:00am vitamin D3/vitamin K2, MK4, (K2 PLUS D3 ORAL) (20 sources) End: 02-06-2024 take 1 dose by mouth once daily vitamin D3/vitamin K2, MK4, (K2 PLUS D3 ORAL) Take 1 Dose by mouth once daily. 0 02/06/2024 Discontinued take 1 dose by mouth once daily vitamin D3/vitamin K2, MK4, (K2 PLUS D3 ORAL) Take 1 Dose by mouth once daily. 0 Suspended take 1 dose by mouth once daily vitamin D3/vitamin K2, MK4, (K2 PLUS D3 ORAL) Take 1 Dose by mouth once daily. 0 Active Comment on above: Take 1 Dose by mouth once daily. Problems Active Problems Problem Classification Problem Date Documented Da te Episodic/Chronic Abdominal pain (6 sources) Indigestion; Translations: [Epigastric pain] Onset: 4 04-06-2023 Episodic Acute and unspecified renal failure (1 source) Acute kidney failure, unspecified; Translations: [JOSE MIGUEL (acute kidney injury) (HCC)] Onset: 4 Episodic Anxiety disorders (20 sources) Mixed anxiety and depressive disorder; Translations: [Other specified anxiety disorders] Onset: 4 Chronic Cancer of rectum and anus (20 sources) Adenocarcinoma of rectum; Translations: [Malignant neoplasm of rectum] Onset: 3 03-07-2023 Chronic Cancer of rectum and anus (3 sources) History of malignant neoplasm of rectum; Translations: [Personal history of other malignant neoplasm of rectum, rectosigmoid junction, and anus] 10-10-2023 Episodic Cardiac dysrhythmias (20 sources) Atrial fibrillation; Translations: [Unspecified atrial fibrillation] Onset: 4 Chronic Cardiac dysrhythmias (1 source) Cardiac dysrhythmias Onset: 7 Coronary atherosclerosis and other heart disease (1 source) Atherosclerotic heart disease of [place] coronary artery without angina pectoris; Translations: [Coronary artery disease involving [place] coronary artery of [place] heart without angina pectoris] Onset: 3 Chronic Coronary atherosclerosis and other heart disease (1 source) Coronary atherosclerosis and other heart disease Onset: 7 Diabetes mellitus without complication (9 sources) Hyperglycemia; Translations: [Hyperglycemia, unspecified] 10-17-2023 Episodic Disorders of lipid metabolism (20 sources) Hyperlipidemia; Translations: [Hyperlipidemia, unspecified] Onset: 4 Chronic Diverticulosis and diverticulitis (20 sources) Diverticular disease; Translations: [Diverticulosis of intestine, part unspecified, without perforation or abscess without bleeding] 10-27-2023 Chronic Esophageal disorders (20 sources) Gastroesophageal reflux disease; Translations: [Gastro-esophageal reflux disease without esophagitis] Onset: 4 Chronic Essential hypertension (20 sources) Essential (primary) hypertension; Translations: [Hypertensive disorder] Onset: 7 Chronic Essential hypertension (2 sources) Essential hypertension Onset: 7 Fluid and electrolyte disorders (1 source) Hypo-osmolality and hyponatremia; Translations: [Hyponatremia] Onset: 4 Episodic Gastrointestinal hemorrhage (7 sources) Blood-tinged feces; Translations: [Melena] Episodic Genitourinary symptoms and ill-defined conditions (20 sources) Female stress incontinence; Translations: [Stress incontinence (female) (male)] Chronic Nausea and vomiting (4 sources) Vomiting; Translations: [Vomiting, unspecified] Onset: 4 10-26-2023 Episodic Osteoarthritis (20 sources) Arthritis; Translations: [Unspecified osteoarthritis, unspecified site] Onset: 6 Resolved: 2 Chronic Osteoporosis (20 sources) Senile osteoporosis; Translations: [Age-related osteoporosis without current pathological fracture] 10-27-2023 Chronic Other aftercare (3 sources) Surgical follow-up; Translations: [Encounter for follow-up examination after completed treatment for conditions other than malignant neoplasm] 09-22-2023 Episodic Other aftercare (1 source) Encounter for follow-up examination after completed treatment for conditions other than malignant neoplasm; Translations: [Follow-up examination after colorectal surgery] Onset: 4 Episodic Other circulatory disease (3 sources) H/O: atrial fibrillation; Translations: [Personal history of other diseases of circulatory system] Onset: 4 07-25-2023 Episodic Other connective tissue disease (3 sources) Muscle finding; Translations: [Myalgia, unspecified site] 04-25-2023 Episodic Other disorders of stomach and duodenum (1 source) Functional dyspepsia; Translations: [Dyspepsia] Episodic Other gastrointestinal disorders (20 sources) Ileostomy present; Translations: [Ileostomy status] Onset: 4 08-31-2023 Chronic Other gastrointestinal disorders (20 sources) Ileostomy bag changed; Translations: [Encounter for attention to ileostomy] Onset: 4 08-31-2023 Chronic Other gastrointestinal disorders (4 sources) Ileostomy status; Translations: [Ileostomy status] Onset: 4 10-01-2023 Chronic Other gastrointestinal disorders (1 source) Encounter for attention to ileostomy; Translations: [Attention to ileostomy ([facility])] Onset: 4 Chronic Other gastrointestinal disorders (6 sources) Passing flatus; Translations: [Flatulence] Episodic Other gastrointestinal disorders (6 sources) Altered bowel function; Translations: [Change in bowel habit] Episodic Other gastrointestinal disorders (1 source) Change in bowel habit Episodic Other gastrointestinal disorders (1 source) Flatulence Episodic Other gastrointestinal disorders (1 source) Other specified diseases of intestine; Translations: [Colonic mass] Episodic Other gastrointestinal disorders (2 sources) Mass of colon; Translations: [Other specified diseases of intestine] Episodic Other gastrointestinal disorders (1 source) Other specified symptoms and signs involving the digestive system and abdomen; Translations: [Other symptoms involving digestive system] 01-09-2024 Episodic Other nervous system disorders (20 sources) Carpal tunnel syndrome of right wrist; Translations: [Carpal tunnel syndrome, right upper limb] Chronic Other nervous system disorders (6 sources) Acute postoperative pain; Translations: [Other acute postprocedural pain] 06-26-2023 Episodic Other nervous system disorders (1 source) Other acute postprocedural pain; Translations: [Post-op pain] Onset: 4 Episodic Other non-traumatic joint disorders (1 source) Pain in right hip joint; Translations: [Pain in right hip] 11-21-2023 Episodic Other nutritional; endocrine; and metabolic disorders (1 source) Overweight in adulthood with body mass index of 25 or more but less than 30; Translations: [Overweight] Episodic Other screening for suspected conditions (not mental disorders or infectious disease) (7 sources) Cardiovascular stress test abnormal; Translations: [Other nonspecific abnormal results of function study of cardiovascular system] Onset: 3 Resolved: 4 Episodic Residual codes; unclassified (4 sources) Asymptomatic menopausal state; Translations: [ASYMPTOMATIC MENOPAUSAL STATE] Onset: 3 Episodic Residual codes; unclassified (2 sources) Body mass index 20-24 - normal; Translations: [Body mass index (BMI) 24.0-24.9, adult] Onset: 4 07-25-2023 Episodic Residual codes; unclassified (2 sources) Body mass index (BMI) 24.0-24.9, adult; Translations: [Body mass index (BMI) 24.0-24.9, adult] Onset: 4 Episodic Unclassified (1 source) Obesity, unspecified / E66.9(ICD-9) Onset: 7 Unclassified (1 source) Pure hypercholesterolemia, unspecified / E78.00(ICD-9) Onset: 7 Unclassified (1 source) Family hx of ischem heart dis and oth dis of the circ sys / Z82.49(ICD-9) Onset: 7 Unclassified (1 source) Abnormal result of other cardiovascular function study / R94.39(ICD-9) Onset: 7 Unclassified (1 source) Diarrhea, unspecified; Translations: [Diarrhea, unspecified] Onset: 3 Urinary tract infections (5 sources) Acute urinary tract infection; Translations: [Urinary tract infection, site not specified] Onset: 4 10-26-2023 Episodic Viral infection (11 sources) COVID-19; Translations: [Pneumonia due to COVID-19 virus] 06-03-2021 Episodic Past or Other Problems Problem Classification Problem Date Documented Da te Episodic/Chronic Anal and rectal conditions (1 source) Other specified diseases of anus and rectum; Translations: [Rectal mass] Onset: 03-14-2023 Episodic Deficiency and other anemia (20 sources) Iron deficiency anemia; Translations: [Other iron deficiency anemias] Onset: 07-06-2023 08-11-2023 Episodic Genitourinary symptoms and ill-defined conditions (3 sources) Dysuria; Translations: [Dysuria] Onset: 05-01-2023 05-01-2023 Episodic Hemorrhoids (20 sources) Hemorrhoids; Translations: [Unspecified hemorrhoids] Onset: 08-09-2023 08-09-2023 Episodic Immunizations and screening for infectious disease (18 sources) Patient encounter status; Translations: [Other specified vaccination] Onset: 11-06-2022 Resolved: 08-29-2023 06-07-2023 Episodic Intestinal obstruction without hernia (20 sources) Small bowel obstruction; Translations: [Unspecified intestinal obstruction, unspecified as to partial versus complete obstruction] Onset: 08-31-2023 Resolved: 09-04-2023 08-31-2023 Episodic Melanomas of skin (20 sources) History of malignant melanoma of the skin; Translations: [Personal history of malignant melanoma of skin] Onset: 04-28-2009 04-28-2009 Episodic Nonspecific chest pain (17 sources) Chest pain; Translations: [Chest pain, unspecified] Onset: 04-05-2023 04-05-2023 Episodic Other non-traumatic joint disorders (1 source) Pain in right knee Onset: 02-11-2022 Resolved: 02-11-2022 Episodic Other non-traumatic joint disorders (1 source) Pain in left knee Onset: 02-11-2022 Resolved: 02-11-2022 Episodic Unclassified (1 source) Never smoked tobacco; Translations: [Never a smoker] Unclassified (1 source) Onset: 07-25-2023 07-25-2023 Results Test Name Value Interpretation Reference Range Facility CBC W Auto Differential pane l (Bld)on 02-06-2024 Basophils (Bld) [#/Vol] 0.04 10*3/uL Normal <0.11 [facility] Comment on above: Order Comment: Speci men Type: BLOOD SPECIMENOrdering Facility: [facility] Address: [address] [place] [address] Performed By: #### 5 7021-8 ####[facility] LABCLIA [id number] [place] [address] Basophils/100 WBC (Bld) 0.9 % Normal [facility] Comment on above: Order Comment: Speci men Type: BLOOD SPECIMENOrdering Facility: [facility] Address: [address] [place] [address] Performed By: #### 5 7021-8 ####[facility] LABCLIA [id number] [place] [address] Differential cell count method Nom (Bld) Auto Normal [facility] Comment on above: Order Comment: Speci men Type: BLOOD SPECIMENOrdering Facility: [facility] Address: [address] [place] [address] Performed By: #### 5 7021-8 ####[facility] LABCLIA [id number] [place] [address] Eosinophils (Bld) [#/Vol] 0.45 10*3/uL Normal <0.46 [facility] Comment on above: Order Comment: Speci men Type: BLOOD SPECIMENOrdering Facility: [facility] Address: [address] [place] [address] Performed By: #### 5 7021-8 ####[facility] LABCLIA [id number] [place] [address] Eosinophils/100 WBC (Bld) 10.2 % Normal [facility] Comment on above: Order Comment: Speci men Type: BLOOD SPECIMENOrdering Facility: [facility] Address: [address] [place] [address] Performed By: #### 5 7021-8 ####[facility] LABCLIA [id number] [place] [address] Erythrocyte distribution width (RBC) [Ratio] 14.1 % Normal 11.5-15.0 [facility] Comment on above: Order Comment: Speci men Type: BLOOD SPECIMENOrdering Facility: [facility] Address: [address] [place] [address] Performed By: #### 5 7021-8 ####[facility] LABCLIA [id number] [place] [address] Hematocrit (Bld) [Volume fraction] 36.0 % Normal 36.0-46.0 [facility] Comment on above: Order Comment: Speci men Type: BLOOD SPECIMENOrdering Facility: [facility] Address: [address] [place] [address] Performed By: #### 5 7021-8 ####[facility] LABCLIA [id number] [place] [address] Hemoglobin (Bld) [Mass/Vol] 11.4 g/dL Low 11.5-15.5 [facility] Comment on above: Order Comment: Speci men Type: BLOOD SPECIMENOrdering Facility: [facility] Address: [address] [place] [address] Performed By: #### 5 7021-8 ####[facility] LABCLIA [id number] [place] [address] Immature granulocytes (Bld) [#/Vol] 10*3/uL Normal <0.10 [facility] Comment on above: Order Comment: Speci men Type: BLOOD SPECIMENOrdering Facility: [facility] Address: [address] [place] [address] Performed By: #### 5 7021-8 ####[facility] LABCLIA [id number] [place] [address] Immature granulocytes/100 WBC (Bld) 0.2 % Normal [facility] Comment on above: Order Comment: Speci men Type: BLOOD SPECIMENOrdering Facility: [facility] Address: [address] [place] [address] Performed By: #### 5 7021-8 ####[facility] LABCLIA [id number] [place] [address] Lymphocytes (Bld) [#/Vol] 0.99 10*3/uL Low 1.00-4.00 [facility] Comment on above: Order Comment: Speci men Type: BLOOD SPECIMENOrdering Facility: [facility] Address: [address] [place] [address] Performed By: #### 5 7021-8 ####[facility] LABIA [id number] [place] [address] Lymphocytes/100 WBC (Bld) 22.5 % Normal [facility] Comment on above: Order Comment: Speci men Type: BLOOD SPECIMENOrdering Facility: [facility] Address: [address] [place] [address] Performed By: #### 5 7021-8 ####[facility] LABCLIA [id number] [place] [address] MCH (RBC) [Entitic mass] 28.9 pg Normal 26.0-34.0 [facility] Comment on above: Order Comment: Speci men Type: BLOOD SPECIMENOrdering Facility: [facility] Address: [address] [place] [address] Performed By: #### 5 7021-8 ####[facility] LABIA [id number] [place] [address] MCHC (RBC) [Mass/Vol] 31.7 g/dL Normal 30.5-36.0 [facility] Comment on above: Order Comment: Speci men Type: BLOOD SPECIMENOrdering Facility: [facility] Address: [address] [place] [address] Performed By: #### 5 7021-8 ####[facility] LABCLIA [id number] [place] [address] MCV (RBC) [Entitic vol] 91.4 fL Normal 80.0-100.0 [facility] Comment on above: Order Comment: Speci men Type: BLOOD SPECIMENOrdering Facility: [facility] Address: [address] [place] [address] Performed By: #### 5 7021-8 ####[facility] LABCLIA [id number] [place] [address] Monocytes (Bld) [#/Vol] 0.29 10*3/uL Normal <0.87 [facility] Comment on above: Order Comment: Speci men Type: BLOOD SPECIMENOrdering Facility: [facility] Address: [address] [place] [address] Performed By: #### 5 7021-8 ####[facility] LABCLIA [id number] [place] [address] Monocytes/100 WBC (Bld) 6.6 % Normal [facility] Comment on above: Order Comment: Speci men Type: BLOOD SPECIMENOrdering Facility: [facility] Address: [address] [place] [address] Performed By: #### 5 7021-8 ####[facility] LABCLIA [id number] [place] [address] Neutrophils (Bld) [#/Vol] 2.62 10*3/uL Normal 1.45-7.50 [facility] Comment on above: Order Comment: Speci men Type: BLOOD SPECIMENOrdering Facility: [facility] Address: [address] [place] [address] Performed By: #### 5 7021-8 ####[facility] LABCLIA [id number] [place] [address] Neutrophils/100 WBC (Bld) 59.6 % Normal [facility] Comment on above: Order Comment: Speci men Type: BLOOD SPECIMENOrdering Facility: [facility] Address: [address] [place] [address] Performed By: #### 5 7021-8 ####[facility] LABCLIA [id number] [place] [address] Nucleated RBC (Bld) [#/Vol] 10*3/uL Normal <0.01 [facility] Comment on above: Order Comment: Speci men Type: BLOOD SPECIMENOrdering Facility: [facility] Address: [address] [place] [address] Performed By: #### 5 7021-8 ####[facility] LABCLIA [id number] [place] [address] Nucleated RBC/100 WBC (Bld) [Ratio] 0.0 /100 WBC Normal [facility] Comment on above: Order Comment: Speci men Type: BLOOD SPECIMENOrdering Facility: [facility] Address: [address] [place] [address] Performed By: #### 5 7021-8 ####[facility] LABIA [id number] [place] [address] Platelet mean volume (Bld) [Entitic vol] 8.3 fL Low 9.0-12.7 [facility] Comment on above: Order Comment: Speci men Type: BLOOD SPECIMENOrdering Facility: [facility] Address: [address] [place] [address] Performed By: #### 5 7021-8 ####[facility] LABCLIA [id number] [place] [address] Platelets (Bld) [#/Vol] 258 10*3/uL Normal 150-400 [facility] Comment on above: Order Comment: Speci men Type: BLOOD SPECIMENOrdering Facility: [facility] Address: [address] [place] [address] Performed By: #### 5 7021-8 ####[facility] LABCLIA [id number] [place] [address] RBC (Bld) [#/Vol] 3.94 10*6/uL Normal 3.90-5.20 [facility] Comment on above: Order Comment: Speci men Type: BLOOD SPECIMENOrdering Facility: [facility] Address: [address] [place] [address] Performed By: #### 5 7021-8 ####[facility] LABCLIA [id number] [place] [address] WBC (Bld) [#/Vol] 4.40 10*3/uL Normal 3.70-11.00 [facility] Comment on above: Order Comment: Speci men Type: BLOOD SPECIMENOrdering Facility: [facility] Address: [address] [place] [address] Performed By: #### 5 7021-8 ####[facility] LABCLIA [id number] [place] [address] CEA SerPl-mCncon 02-06-2024 Carcinoembryonic Ag [Mass/Vol] 2.9 ng/mL Normal <=2.9 [facility] Comment on above: Order Comment: Speci men Type: BLOOD SPECIMENOrdering Facility: [facility] Address: [address] [place] [address] Result Comment: Carc inoembryonic antigen test is used as an aid in monitoring response to treatment or recurrence in patients with established colorectal, breast, lung, prostatic, pancreatic, and ovarian carcinomas. Clinical correlation is required.The Carcinoembryonic antigen test was performed using the [employer] DXI paramagnetic particle chemiluminescent immunoassay method. Results obtained with different assay methods or kits cannot be used interchangeably. Performed By: #### 2 039-6 ####[facility] LABCLIA [id number] [place] [id number] [place] CNOVSPon 02-06-2024 CNOVSP Normal [facility] CNPNon 02-06-2024 CNPN Normal [facility] Comprehensive metabolic 2000 panelon 02-06-2024 Albumin [Mass/Vol] 4.1 g/dL Normal 3.9-4.9 [facility] Comment on above: Order Comment: Speci men Type: BLOOD SPECIMENOrdering Facility: [facility] Address: [address] [place] [address] Performed By: #### 2 4323-8 ####[facility] LABCLIA [id number] [place] [address] ALP [Catalytic activity/Vol] 94 U/L Normal 34-123 [facility] Comment on above: Order Comment: Speci men Type: BLOOD SPECIMENOrdering Facility: [facility] Address: [address] [place] [address] Performed By: #### 2 4323-8 ####[facility] LABCLIA [id number] [place] [address] ALT [Catalytic activity/Vol] 12 U/L Normal 7-38 [facility] Comment on above: Order Comment: Speci men Type: BLOOD SPECIMENOrdering Facility: [facility] Address: [address] [place] [address] Performed By: #### 2 4323-8 ####[facility] LABCLIA [id number] [place] [address] Anion gap [Moles/Vol] 12 mmol/L Normal 8-15 [facility] Comment on above: Order Comment: Speci men Type: BLOOD SPECIMENOrdering Facility: [facility] Address: [address] [place] [address] Performed By: #### 2 4323-8 ####[facility] LABCLIA [id number] [place] [address] AST [Catalytic activity/Vol] 15 U/L Normal 13-35 [facility] Comment on above: Order Comment: Speci men Type: BLOOD SPECIMENOrdering Facility: [facility] Address: [address] [place] [address] Performed By: #### 2 4323-8 ####[facility] LABCLIA [id number] [place] [address] Bilirubin [Mass/Vol] 0.3 mg/dL Normal 0.2-1.3 [facility] Comment on above: Order Comment: Speci men Type: BLOOD SPECIMENOrdering Facility: [facility] Address: [address] [place] [address] Performed By: #### 2 4323-8 ####[facility] LABCLIA [id number] [place] [address] Calcium [Mass/Vol] 9.5 mg/dL Normal 8.5-10.2 [facility] Comment on above: Order Comment: Speci men Type: BLOOD SPECIMENOrdering Facility: [facility] Address: [address] [place] [address] Performed By: #### 2 4323-8 ####[facility] LABCLIA [id number] [place] [address] Chloride [Moles/Vol] 106 mmol/L Normal 98-107 [facility] Comment on above: Order Comment: Speci men Type: BLOOD SPECIMENOrdering Facility: [facility] Address: [address] [place] [address] Performed By: #### 2 4323-8 ####[facility] LABCLIA [id number] [place] [address] CO2 [Moles/Vol] 26 mmol/L Normal 22-30 [facility] Comment on above: Order Comment: Speci men Type: BLOOD SPECIMENOrdering Facility: [facility] Address: [address] [place] [address] Performed By: #### 2 4323-8 ####[facility] LABCLIA [id number] [place] [address] Creatinine [Mass/Vol] 0.75 mg/dL Normal 0.58-0.96 [facility] Comment on above: Order Comment: Speci men Type: BLOOD SPECIMENOrdering Facility: [facility] Address: [address] [place] [address] Performed By: #### 2 4323-8 ####[facility] LABCLIA [id number] [place] [address] Creatinine and Glomerular filtration rate.predicted panel (S/P/Bld) 86 mL/min/1.73m??? Normal >=60 [facility] Comment on above: Order Comment: Moyi tatiana Type: BLOOD SPECIMENOrdering Facility: [facility] Address: [address] [place] [address] Result Comment: Farhana mated Glomerular Filtration Rate (eGFR) is calculated using the 2020 CKD-EPI creatinine equation. This equation utilizes serum creatinine, sex, and age as parameters. The creatinine assay has traceable calibration to isotope dilution-mass spectrometry. Refer to KDIGO guidelines for clinical interpretation. In patients with unstable renal function, e.g. those with acute kidney injury, the eGFR may not accurately reflect actual GFR. Performed By: #### 2 4323-8 ####[facility] LABCLIA [id number] [place] [address] Glucose [Mass/Vol] 99 mg/dL Normal 74-99 [facility] Comment on above: Order Comment: Mason simpson Type: BLOOD SPECIMENOrdering Facility: [facility] Address: [address] [place] [address] Result Comment: The [place] Diabetes Association (ADA) provides guidance for cutoff values for fasting glucose and random glucose. The ADA defines fasting as no caloric intake for at least 8 hours. Fasting plasma glucose results between 100 to 125 mg/dL indicate increased risk for diabetes (prediabetes).Fasting plasma glucose results greater than or equal to 126 mg/dL meet the criteria for diagnosis of diabetes. In the absence of unequivocal hyperglycemia, results should be confirmed by repeat testing. In a patient with classic symptoms of hyperglycemia or hyperglycemic crisis, random plasma glucose results greater than or equal to 200 mg/dL meet the criteria for diagnosis of diabetes.Reference: Standards of Medical Care in Diabetes 2016, [place] [employer]. Diabetes Care. 2016.39(Suppl 1). Performed By: #### 2 4323-8 ####[facility] LABCLIA [id number] [place] [address] Potassium [Moles/Vol] 4.5 mmol/L Normal 3.7-5.1 [facility] Comment on above: Order Comment: Speci men Type: BLOOD SPECIMENOrdering Facility: [facility] Address: [address] [place] [address] Performed By: #### 2 4323-8 ####[facility] LABCLIA [id number] [place] [address] Protein [Mass/Vol] 6.5 g/dL Normal 6.3-8.0 [facility] Comment on above: Order Comment: Speci men Type: BLOOD SPECIMENOrdering Facility: [facility] Address: [address] [place] [address] Performed By: #### 2 4323-8 ####[facility] LABCLIA [id number] [place] [address] Sodium [Moles/Vol] 144 mmol/L Normal 136-144 [facility] Comment on above: Order Comment: Speci men Type: BLOOD SPECIMENOrdering Facility: [facility] Address: [address] [place] [address] Performed By: #### 2 4323-8 ####[facility] LABCLIA [id number] [place] [address] Urea nitrogen [Mass/Vol] 17 mg/dL Normal 7-21 [facility] Comment on above: Order Comment: Speci men Type: BLOOD SPECIMENOrdering Facility: [facility] Address: [address] [place], [place] [address] Performed By: #### 2 4323-8 ####[facility] LABCLIA [id number] [place] [address] CNPNon 01-16-2024 CNPN Normal [facility] CNOVon 01-09-2024 CNOV Normal [facility] CNPNon 01-08-2024 CNPN Normal [facility] CNPNon 12-12-2023 CNPN Normal [facility] CNOVon 11-24-2023 CNOV Normal [facility] CNPNon 11-13-2023 CNPN Normal [facility] Basic metabolic 2000 panelon 11-10-2023 Anion gap [Moles/Vol] 11 mmol/L Normal 9-18 [facility] Comment on above: Order Comment: Speci men Type: BLOOD SPECIMENOrdering Facility: [facility] Address: [address] [place] [address] Performed By: #### 2 4321-2, 2776-07, ####[facility]ORATORYCLIA [id number] [place] [id number] [place] Calcium [Mass/Vol] 9.0 mg/dL Normal 8.5-10.2 [facility] Comment on above: Order Comment: Speci men Type: BLOOD SPECIMENOrdering Facility: [facility] Address: [address] [place] [address] Performed By: #### 2 4321-2, 2776-07, ####[facility] LABORATORYCLIA [id number] [place] [address] [place] Chloride [Moles/Vol] 102 mmol/L Normal 97-105 [facility] Comment on above: Order Comment: Speci men Type: BLOOD SPECIMENOrdering Facility: [facility] Address: [address] [place], [place] [address] Performed By: #### 2 4321-2, 2776-07, ####[facility]ORATORYCLIA [id number] [place] [address] [place] CO2 [Moles/Vol] 28 mmol/L Normal 22-30 [facility] Comment on above: Order Comment: Speci men Type: BLOOD SPECIMENOrdering Facility: [facility] Address: [address] [place], [place] [address] Performed By: #### 2 4321-2, 2776-07, ####[facility] [facility] LABORATORYCLIA [id number] [place] [address] [place] Creatinine [Mass/Vol] 0.60 mg/dL Normal 0.58-0.96 [facility] Comment on above: Order Comment: Mason simpson Type: BLOOD SPECIMENOrdering Facility: [facility] Address: [address] [place] [address] Performed By: #### 2 4321-2, 2777-1, ####[facility]ORATORYCLIA [id number] [place] [address] [place] Creatinine and Glomerular filtration rate.predicted panel (S/P/Bld) 97 mL/min/1.73m??? Normal >=60 [facility] Comment on above: Order Comment: Mason simpson Type: BLOOD SPECIMENOrdering Facility: [facility] Address: [address] [place] [address] Result Comment: Farhana mated Glomerular Filtration Rate (eGFR) is calculated using the 2020 CKD-EPI creatinine equation. This equation utilizes serum creatinine, sex, and age as parameters. The creatinine assay has traceable calibration to isotope dilution-mass spectrometry. Refer to KDIGO guidelines for clinical interpretation. In patients with unstable renal function, e.g. those with acute kidney injury, the eGFR may not accurately reflect actual GFR. Performed By: #### 2 4321-2, 2777-, ####[facility]ORATORYCLIA [id number] [place] [id number] [place] Glucose [Mass/Vol] 101 mg/dL High 74-99 [facility] Comment on above: Order Comment: Mason simpson Type: BLOOD SPECIMENOrdering Facility: [facility] Address: [address] [place] [address] Result Comment: The [place] Diabetes Association (ADA) provides guidance for cutoff values for fasting glucose and random glucose. The ADA defines fasting as no caloric intake for at least 8 hours. Fasting plasma glucose results between 100 to 125 mg/dL indicate increased risk for diabetes (prediabetes).Fasting plasma glucose results greater than or equal to 126 mg/dL meet the criteria for diagnosis of diabetes. In the absence of unequivocal hyperglycemia, results should be confirmed by repeat testing. In a patient with classic symptoms of hyperglycemia or hyperglycemic crisis, random plasma glucose results greater than or equal to 200 mg/dL meet the criteria for diagnosis of diabetes.Reference: Standards of Medical Care in Diabetes 2016, [place] [employer]. Diabetes Care. 2016.39(Suppl 1). Performed By: #### 2 4321-2, 2776-07, ####[facility]ORATORYCLIA [id number] [place] [address] [place] Potassium [Moles/Vol] 3.5 mmol/L Low 3.7-5.1 [facility] Comment on above: Order Comment: Mason simpson Type: BLOOD SPECIMENOrdering Facility: [facility] Address: [address] [place] [address] Performed By: #### 2 4321-2, 2776-07, ####[facility]ORATORYCLIA [id number] [place] [id number] [place] Sodium [Moles/Vol] 141 mmol/L Normal 136-144 [facility] Comment on above: Order Comment: Mason simpson Type: BLOOD SPECIMENOrdering Facility: [facility] Address: [address] [place] [address] Performed By: #### 2 4321-2, 2776-07, ####[facility]ORATORYCLIA [id number] [place] [id number] [place] Urea nitrogen [Mass/Vol] 8 mg/dL Normal 7-21 [facility] Comment on above: Order Comment: Mason simpson Type: BLOOD SPECIMENOrdering Facility: [facility] Address: [address] [place] [address] Performed By: #### 2 4321-2, 2776-07, ####[facility] LABORATORYCLIA [id number] [place] [id number] [place] CBC panel Auto (Bld)on 11-09 Erythrocyte distribution width (RBC) [Ratio] 13.8 % Normal 11.5-15.0 [facility] Comment on above: Order Comment: Mason simpson Type: BLOOD SPECIMENOrdering Facility: [facility] Address: [address] [place] [address] Performed By: #### 5 8410-2 ####[facility] LABORATORYCLIA [id number] [place] [address] [place] Hematocrit (Bld) [Volume fraction] 32.4 % Low 36.0-46.0 [facility] Comment on above: Order Comment: Speci men Type: BLOOD SPECIMENOrdering Facility: [facility] Address: [address] [place] [address] Performed By: #### 5 8410-2 ####[facility] LABORATORYCLIA [id number] [place] [address] [place] Hemoglobin (Bld) [Mass/Vol] 10.7 g/dL Low 11.5-15.5 [facility] Comment on above: Order Comment: Speci men Type: BLOOD SPECIMENOrdering Facility: [facility] Address: [address] [place] [address] Performed By: #### 5 8410-2 ####[facility] LABORATORYCLIA [id number] [address] [place] MCH (RBC) [Entitic mass] 29.6 pg Normal 26.0-34.0 [facility] Comment on above: Order Comment: Speci men Type: BLOOD SPECIMENOrdering Facility: [facility] Address: [address] [place] [address] Performed By: #### 5 8410-2 ####[facility]ORATORYCLIA [id number] [address] [place] MCHC (RBC) [Mass/Vol] 33.0 g/dL Normal 30.5-36.0 [facility] Comment on above: Order Comment: Speci men Type: BLOOD SPECIMENOrdering Facility: [facility] Address: [address] [place] [address] Performed By: #### 5 8410-2 ####[facility] LABORATORYCLIA [id number] [address] [place] MCV (RBC) [Entitic vol] 89.5 fL Normal 80.0-100.0 [facility] Comment on above: Order Comment: Speci men Type: BLOOD SPECIMENOrdering Facility: [facility] Address: [address] [place] [address] Performed By: #### 5 8410-2 ####[facility]ORATORYCLIA [id number] [place] [id number] [place] Nucleated RBC (Bld) [#/Vol] 10*3/uL Normal <0.01 [facility] Comment on above: Order Comment: Speci men Type: BLOOD SPECIMENOrdering Facility: [facility] Address: [address] [place] [address] Performed By: #### 5 8410-2 ####[facility]ORATORYCLIA [id number] [place] [id number] [place] Platelet mean volume (Bld) [Entitic vol] 8.8 fL Low 9.0-12.7 [facility] Comment on above: Order Comment: Speci men Type: BLOOD SPECIMENOrdering Facility: [facility] Address: [address] [place] [address] Performed By: #### 5 8410-2 ####[facility] LABORATORYCLIA [id number] [place] [address] [place] Platelets (Bld) [#/Vol] 285 10*3/uL Normal 150-400 [facility] Comment on above: Order Comment: Speci men Type: BLOOD SPECIMENOrdering Facility: [facility] Address: [address] [place] [address] Performed By: #### 5 8410-2 ####[facility] LABORATORYCLIA [id number] [place] [id number] [place] RBC (Bld) [#/Vol] 3.62 10*6/uL Low 3.90-5.20 [facility] Comment on above: Order Comment: Speci men Type: BLOOD SPECIMENOrdering Facility: [facility] Address: [address] [place] [address] Performed By: #### 5 8410-2 ####[facility] LABORATORYCLIA [id number] [place] [id number] [place] WBC (Bld) [#/Vol] 7.91 10*3/uL Normal 3.70-11.00 [facility] Comment on above: Order Comment: Speci men Type: BLOOD SPECIMENOrdering Facility: [facility] Address: [address] [place] [address] Performed By: #### 5 8410-2 ####[facility] LABORATORYCLIA [id number] [place] [id number] [facility] [place] Magnesium SerPl-mCncon 11-09 Magnesium [Mass/Vol] 1.9 mg/dL Normal 1.7-2.3 [facility] Comment on above: Order Comment: Speci men Type: BLOOD SPECIMENOrdering Facility: [facility] Address: [address] [place] [address] Performed By: #### 2 4321-2, 2777-1, 01865-9 ####[facility] LABORATORYCLIA [id number] [place] [id number] [place] Phosphate SerPl-mCncon 11-09 Phosphate [Mass/Vol] 3.0 mg/dL Normal 2.7-4.8 [facility] Comment on above: Order Comment: Speci men Type: BLOOD SPECIMENOrdering Facility: [facility] Address: [address] [place] [address] Performed By: #### 2 4321-2, 2777-1, 14708-4 ####[facility] LABORATORYCLIA [id number] [place] [id number] [place] Basic metabolic 2000 panelon 11-09-2023 Anion gap [Moles/Vol] 12 mmol/L Normal 9-18 [facility] Comment on above: Order Comment: Speci men Type: BLOOD SPECIMENOrdering Facility: [facility] Address: [address] [place] [address] Performed By: #### 2 777-1, 47529-1, 87928-1 ####[facility] LABORATORYCLIA [id number] [place] [id number] [place] Calcium [Mass/Vol] 9.3 mg/dL Normal 8.5-10.2 [facility] Comment on above: Order Comment: Speci men Type: BLOOD SPECIMENOrdering Facility: [facility] Address: [address] [place] [address] Performed By: #### 2 777-1, , ####[facility] LABORATORYCLIA [id number] [place] [address] [place] Chloride [Moles/Vol] 100 mmol/L Normal 97-105 [facility] Comment on above: Order Comment: Speci men Type: BLOOD SPECIMENOrdering Facility: [facility] Address: [address] [place] [address] Performed By: #### 2 777-1, , ####[facility] LABORATORYCLIA [id number] [place] [address] [place] CO2 [Moles/Vol] 27 mmol/L Normal 22-30 [facility] Comment on above: Order Comment: Speci men Type: BLOOD SPECIMENOrdering Facility: [facility] Address: [address] [place] [address] Performed By: #### 2 777-1, , ####[facility] LABORATORYCLIA [id number] [place] [id number] [place] Creatinine [Mass/Vol] 0.64 mg/dL Normal 0.58-0.96 [facility] Comment on above: Order Comment: Speci men Type: BLOOD SPECIMENOrdering Facility: [facility] Address: [address] [place] [address] Performed By: #### 2 777-1, , ####[facility] LABORATORYCLIA [id number] [place] [id number] [place] Creatinine and Glomerular filtration rate.predicted panel (S/P/Bld) 95 mL/min/1.73m??? Normal >=60 [facility] Comment on above: Order Comment: Speci men Type: BLOOD SPECIMENOrdering Facility: [facility] Address: [address] [place] [address] Result Comment: Farhana mated Glomerular Filtration Rate (eGFR) is calculated using the 2020 CKD-EPI creatinine equation. This equation utilizes serum creatinine, sex, and age as parameters. The creatinine assay has traceable calibration to isotope dilution-mass spectrometry. Refer to KDIGO guidelines for clinical interpretation. In patients with unstable renal function, e.g. those with acute kidney injury, the eGFR may not accurately reflect actual GFR. Performed By: #### 2 777-1, , 94194-0 ####[facility] LABORATORYCLIA [id number] [place] [id number] [place] Glucose [Mass/Vol] 122 mg/dL High 74-99 [facility] Comment on above: Order Comment: Mason simpson Type: BLOOD SPECIMENOrdering Facility: [facility] Address: [address] [place] [address] Result Comment: The [place] Diabetes [employer] (ADA) provides guidance for cutoff values for fasting glucose and random glucose. The ADA defines fasting as no caloric intake for at least 8 hours. Fasting plasma glucose results between 100 to 125 mg/dL indicate increased risk for diabetes (prediabetes).Fasting plasma glucose results greater than or equal to 126 mg/dL meet the criteria for diagnosis of diabetes. In the absence of unequivocal hyperglycemia, results should be confirmed by repeat testing. In a patient with classic symptoms of hyperglycemia or hyperglycemic crisis, random plasma glucose results greater than or equal to 200 mg/dL meet the criteria for diagnosis of diabetes.Reference: Standards of Medical Care in Diabetes 2016, [place] [employer]. Diabetes Care. 2016.39(Suppl 1). Performed By: #### 2 777-1, , 89571-6 ####[facility] LABORATORYCLIA [id number] [place] [id number] [place] Potassium [Moles/Vol] 3.9 mmol/L Normal 3.7-5.1 [facility] Comment on above: Order Comment: Mason simpson Type: BLOOD SPECIMENOrdering Facility: [facility] Address: [address] [place] [address] Performed By: #### 2 777-1, , 16633-0 ####[facility] LABORATORYCLIA [id number] [place] [id number] [place] Sodium [Moles/Vol] 139 mmol/L Normal 136-144 [facility] Comment on above: Order Comment: Speci men Type: BLOOD SPECIMENOrdering Facility: [facility] Address: [address] [place] [address] Performed By: #### 2 777-1, 31531-8, 83423-8 ####[facility] LABORATORYCLIA [id number] [place] [address] [place] Urea nitrogen [Mass/Vol] 8 mg/dL Normal 7-21 [facility] Comment on above: Order Comment: Speci men Type: BLOOD SPECIMENOrdering Facility: [facility] Address: [address] [place] [address] Performed By: #### 2 777-1, , 73992-8 ####[facility] LABORATORYCLIA [id number] [place] [id number] [place] CASE MGT INIT ASSESon 2023 CASE MGT INIT ASSES Normal [facility] CBC panel Auto (Bld)on 11-08 Erythrocyte distribution width (RBC) [Ratio] 13.5 % Normal 11.5-15.0 [facility] Comment on above: Order Comment: Speci men Type: BLOOD SPECIMENOrdering Facility: [facility] Address: [address] [place] [address] Performed By: #### 5 8410-2 ####[facility] LABORATORYCLIA [id number] [place] [id number] [place] Hematocrit (Bld) [Volume fraction] 32.2 % Low 36.0-46.0 [facility] Comment on above: Order Comment: Speci men Type: BLOOD SPECIMENOrdering Facility: [facility] Address: [address] [place] [address] Performed By: #### 5 8410-2 ####[facility] LABORATORYCLIA [id number] [place] [id number] [place] Hemoglobin (Bld) [Mass/Vol] 11.2 g/dL Low 11.5-15.5 [facility] Comment on above: Order Comment: Speci men Type: BLOOD SPECIMENOrdering Facility: [facility] Address: [address] [place] [address] Performed By: #### 5 8410-2 ####[facility] LABORATORYCLIA [id number] [address] [place] MCH (RBC) [Entitic mass] 30.4 pg Normal 26.0-34.0 [facility] Comment on above: Order Comment: Speci men Type: BLOOD SPECIMENOrdering Facility: [facility] Address: [address] [place] [address] Performed By: #### 5 8410-2 ####[facility] LABORATORYCLIA [id number] [address] [place] MCHC (RBC) [Mass/Vol] 34.8 g/dL Normal 30.5-36.0 [facility] Comment on above: Order Comment: Speci men Type: BLOOD SPECIMENOrdering Facility: [facility] Address: [address] [place] [address] Performed By: #### 5 8410-2 ####[facility] LABORATORYCLIA [id number] [address] [place] MCV (RBC) [Entitic vol] 87.5 fL Normal 80.0-100.0 [facility] Comment on above: Order Comment: Speci men Type: BLOOD SPECIMENOrdering Facility: [facility] Address: [address] [place] [address] Performed By: #### 5 8410-2 ####[facility] LABORATORYCLIA [id number] [address] [place] Nucleated RBC (Bld) [#/Vol] 10*3/uL Normal <0.01 [facility] Comment on above: Order Comment: Speci men Type: BLOOD SPECIMENOrdering Facility: [facility] Address: [address] [place] [address] Performed By: #### 5 8410-2 ####[facility] LABORATORYCLIA [id number] [place] [id number] [place] Platelet mean volume (Bld) [Entitic vol] 8.3 fL Low 9.0-12.7 [facility] Comment on above: Order Comment: Speci men Type: BLOOD SPECIMENOrdering Facility: [facility] Address: [address] [place] [address] Performed By: #### 5 8410-2 ####[facility] LABORATORYCLIA [id number] [place] [id number] [place] Platelets (Bld) [#/Vol] 270 10*3/uL Normal 150-400 [facility] Comment on above: Order Comment: Speci men Type: BLOOD SPECIMENOrdering Facility: [facility] Address: [address] [place] [address] Performed By: #### 5 8410-2 ####[facility] LABORATORYCLIA [id number] [place] [address] [place] RBC (Bld) [#/Vol] 3.68 10*6/uL Low 3.90-5.20 [facility] Comment on above: Order Comment: Speci men Type: BLOOD SPECIMENOrdering Facility: [facility] Address: [address] [place] [address] Performed By: #### 5 8410-2 ####[facility] LABORATORYCLIA [id number] [place] [address] [place] WBC (Bld) [#/Vol] 8.53 10*3/uL Normal 3.70-11.00 [facility] Comment on above: Order Comment: Speci men Type: BLOOD SPECIMENOrdering Facility: [facility] Address: [address] [place] [address] Performed By: #### 5 8410-2 ####[facility] LABORATORYCLIA [id number] [place] [id number] [place] CNDSon 11-09-2023 CNDS Normal [facility] Magnesium SerPl-mCncon 11-08 Magnesium [Mass/Vol] 1.6 mg/dL Low 1.7-2.3 [facility] Comment on above: Order Comment: Speci men Type: BLOOD SPECIMENOrdering Facility: [facility] Address: [facility] [place] [address] Performed By: #### 2 777-1, , ####[facility] LABORATORYCLIA [id number] [place] [id number] [place] PT EDon 11-09-2023 PT ED Normal [facility] Phosphate SerPl-mCncon 11-08 Phosphate [Mass/Vol] 2.5 mg/dL Low 2.7-4.8 [facility] Comment on above: Order Comment: Speci men Type: BLOOD SPECIMENOrdering Facility: [facility] Address: [address] [place] [address] Performed By: #### 2 777-1, , ####[facility] LABORATORYCLIA [id number] [place] [address] [place] ANES POSTPROC EVALon 024 ANES POSTPROC EVAL Normal [facility] ANES PRE-OPon 11-08-2023 ANES PRE-OP Normal [facility] BRIEF OP NOTon 11-08-2023 BRIEF OP NOT Normal [facility] Basic metabolic 2000 panelon 11-08-2023 Anion gap [Moles/Vol] 21 mmol/L High 9-18 [facility] Comment on above: Order Comment: Speci men Type: BLOOD SPECIMENOrdering Facility: [facility] Address: [facility] [place] [address] Performed By: #### H STNT, ####[facility] LABORATORYCLIA [id number] [place] [id number] [place] Calcium [Mass/Vol] 8.7 mg/dL Normal 8.5-10.2 [facility] Comment on above: Order Comment: Speci men Type: BLOOD SPECIMENOrdering Facility: [facility] Address: [address] [place] [address] [place] [address] Performed By: #### H STNT, 33002-6 ####[facility] LABORATORYCLIA [id number] [place] [address] [place] Chloride [Moles/Vol] 100 mmol/L Normal 97-105 [facility] Comment on above: Order Comment: Speci men Type: BLOOD SPECIMENOrdering Facility: [facility] Address: [address] [place] [address] Performed By: #### H STNT, 50423-9 ####[facility]ORATORYCLIA [id number] [place] [id number] [place] CO2 [Moles/Vol] 15 mmol/L Low 22-30 [facility] Comment on above: Order Comment: Speci men Type: BLOOD SPECIMENOrdering Facility: [facility] Address: [address] [place] [address] Performed By: #### H STNT, 14162-8 ####[facility] LABORATORYCLIA [id number] [place] [address] [place] Creatinine [Mass/Vol] 0.63 mg/dL Normal 0.58-0.96 [facility] Comment on above: Order Comment: Speci men Type: BLOOD SPECIMENOrdering Facility: [facility] Address: [address] [place] [address] Performed By: #### H STNT, 99191-6 ####[facility] LABORATORYCLIA [id number] [address] Creatinine and Glomerular filtration rate.predicted panel (S/P/Bld) 96 mL/min/1.73m??? Normal >=60 [facility] Comment on above: Order Comment: Speci men Type: BLOOD SPECIMENOrdering Facility: [facility] Address: [address] [place] [address] Result Comment: Farhana mated Glomerular Filtration Rate (eGFR) is calculated using the 2020 CKD-EPI creatinine equation. This equation utilizes serum creatinine, sex, and age as parameters. The creatinine assay has traceable calibration to isotope dilution-mass spectrometry. Refer to KDIGO guidelines for clinical interpretation. In patients with unstable renal function, e.g. those with acute kidney injury, the eGFR may not accurately reflect actual GFR. Performed By: #### H STNT, 13442-0 ####[facility] LABORATORYCLIA [id number] [place] [address] [place] Glucose [Mass/Vol] 96 mg/dL Normal 74-99 [facility] Comment on above: Order Comment: Speci men Type: BLOOD SPECIMENOrdering Facility: [facility] Address: [address] [place] [address] Result Comment: The [place] Diabetes [employer] (ADA) provides guidance for cutoff values for fasting glucose and random glucose. The ADA defines fasting as no caloric intake for at least 8 hours. Fasting plasma glucose results between 100 to 125 mg/dL indicate increased risk for diabetes (prediabetes).Fasting plasma glucose results greater than or equal to 126 mg/dL meet the criteria for diagnosis of diabetes. In the absence of unequivocal hyperglycemia, results should be confirmed by repeat testing. In a patient with classic symptoms of hyperglycemia or hyperglycemic crisis, random plasma glucose results greater than or equal to 200 mg/dL meet the criteria for diagnosis of diabetes.Reference: Standards of Medical Care in Diabetes 2016, [place] [employer]. Diabetes Care. 2016.39(Suppl 1). Performed By: #### H STNT, 37625-0 ####[facility] LABORATORYCLIA [id number] [place] [id number] [place] Potassium [Moles/Vol] 3.7 mmol/L Normal 3.7-5.1 [facility] Comment on above: Order Comment: Moyi men Type: BLOOD SPECIMENOrdering Facility: [facility] Address: [address] [place] [address] Performed By: #### H STNT, 94533-7 ####[facility] LABORATORYCLIA [id number] [place] [id number] [place] Sodium [Moles/Vol] 136 mmol/L Normal 136-144 [facility] Comment on above: Order Comment: Speci men Type: BLOOD SPECIMENOrdering Facility: [facility] Address: [address] [place] [address] Performed By: #### H STNT, 99433-3 ####[facility] LABORATORYCLIA [id number] [place] [id number] [place] Urea nitrogen [Mass/Vol] 18 mg/dL Normal 7-21 [facility] Comment on above: Order Comment: Speci men Type: BLOOD SPECIMENOrdering Facility: [facility] Address: [address] [place] [address] Performed By: #### H STNT, 76618-0 ####[facility] LABORATORYCLIA [id number] [place] [address] [place] Anion gap [Moles/Vol] 19 mmol/L High 9-18 [facility] Comment on above: Order Comment: Speci men Type: BLOOD SPECIMENOrdering Facility: [facility] Address: [address] [place] [address] Performed By: #### 2 4321-2, 2776-07, ####[facility] LABORATORYCLIA [id number] [place] [address] [place] Calcium [Mass/Vol] 8.7 mg/dL Normal 8.5-10.2 [facility] Comment on above: Order Comment: Speci men Type: BLOOD SPECIMENOrdering Facility: [facility] Address: [facility] [place] [address] Performed By: #### 2 4321-2, 2776-07, ####[facility] LABORATORYCLIA [id number] [place] [id number] [place] Chloride [Moles/Vol] 105 mmol/L Normal 97-105 [facility] Comment on above: Order Comment: Speci men Type: BLOOD SPECIMENOrdering Facility: [facility] Address: [address] [place] [address] Performed By: #### 2 4321-2, 2776-07, ####[facility] LABORATORYCLIA [id number] [place] [id number] [place] CO2 [Moles/Vol] 18 mmol/L Low 22-30 [facility] Comment on above: Order Comment: Speci men Type: BLOOD SPECIMENOrdering Facility: [facility] Address: [address] [place] [address] Performed By: #### 2 4321-2, 2776-, ####[facility] LABORATORYCLIA [id number] [place] [address] [place] Creatinine [Mass/Vol] 0.76 mg/dL Normal 0.58-0.96 [facility] Comment on above: Order Comment: Mason [facility] Type: BLOOD SPECIMENOrdering Facility: [facility] Address: [address] [place] [address] Performed By: #### 2 4321-2, 2777-, ####[facility] LABORATORYCLIA [id number] [place] [address] [place] Creatinine and Glomerular filtration rate.predicted panel (S/P/Bld) 84 mL/min/1.73m??? Normal >=60 [facility] Comment on above: Order Comment: [facility] Type: BLOOD SPECIMENOrdering Facility: [facility] Address: [address] [place] [address] Result Comment: Farhana mated Glomerular Filtration Rate (eGFR) is calculated using the 2020 CKD-EPI creatinine equation. This equation utilizes serum creatinine, sex, and age as parameters. The creatinine assay has traceable calibration to isotope dilution-mass spectrometry. Refer to KDIGO guidelines for clinical interpretation. In patients with unstable renal function, e.g. those with acute kidney injury, the eGFR may not accurately reflect actual GFR. Performed By: #### 2 4321-2, 2777-, ####[facility] LABORATORYCLIA [id number] [place] [address] [place] Glucose [Mass/Vol] 57 mg/dL Low 74-99 [facility] Comment on above: Order Comment: Mason [facility] Type: BLOOD SPECIMENOrdering Facility: [facility] Address: [address] [place] [address] Result Comment: The [place] Diabetes Association (ADA) provides guidance for cutoff values for fasting glucose and random glucose. The ADA defines fasting as no caloric intake for at least 8 hours. Fasting plasma glucose results between 100 to 125 mg/dL indicate increased risk for diabetes (prediabetes).Fasting plasma glucose results greater than or equal to 126 mg/dL meet the criteria for diagnosis of diabetes. In the absence of unequivocal hyperglycemia, results should be confirmed by repeat testing. In a patient with classic symptoms of hyperglycemia or hyperglycemic crisis, random plasma glucose results greater than or equal to 200 mg/dL meet the criteria for diagnosis of diabetes.Reference: Standards of Medical Care in Diabetes 2016, [place] [employer]. Diabetes Care. 2016.39(Suppl 1). Performed By: #### 2 4321-2, 2776-07, ####[facility] LABORATORYCLIA [id number] [place] [id number] [place] Potassium [Moles/Vol] 4.3 mmol/L Normal 3.7-5.1 [facility] Comment on above: Order Comment: Mason simpson Type: BLOOD SPECIMENOrdering Facility: [facility] Address: [address] [place] [address] Performed By: #### 2 4321-2, 2776-07, ####[facility] LABORATORYCLIA [id number] [place] [id number] [place] Sodium [Moles/Vol] 142 mmol/L Normal 136-144 [facility] Comment on above: Order Comment: Mason simpson Type: BLOOD SPECIMENOrdering Facility: [facility] Address: [address] [place] [address] Performed By: #### 2 4321-2, 2776-07, ####[facility] LABORATORYCLIA [id number] [place] [id number] [place] Urea nitrogen [Mass/Vol] 20 mg/dL Normal 7-21 [facility] Comment on above: Order Comment: Mason simpson Type: BLOOD SPECIMENOrdering Facility: [facility] Address: [address] [place] [address] Performed By: #### 2 4321-2, 2776-07, ####[facility] LABORATORYCLIA [id number] [place] [id number] [place] CBC W Auto Differential pane l (Bld)on 11-08-2023 Basophils (Bld) [#/Vol] 10*3/uL Normal <0.11 [facility] Comment on above: Order Comment: Speci men Type: BLOOD SPECIMENOrdering Facility: [facility] Address: [address] [place] [address] Performed By: #### 5 7021-8 ####[facility] LABORATORYCLIA [id number] [place] [address] [place] Basophils/100 WBC (Bld) 0.2 % Normal [facility] Comment on above: Order Comment: Speci men Type: BLOOD SPECIMENOrdering Facility: [facility] Address: [address] [place] [address] Performed By: #### 5 7021-8 ####[facility] LABORATORYCLIA [id number] [place] [address] [place] Differential cell count method Nom (Bld) Auto Normal [facility] Comment on above: Order Comment: Speci men Type: BLOOD SPECIMENOrdering Facility: [facility] Address: [address] [place] [address] Performed By: #### 5 7021-8 ####[facility] LABORATORYCLIA [id number] [place] [address] [place] Eosinophils (Bld) [#/Vol] 10*3/uL Normal <0.46 [facility] Comment on above: Order Comment: Speci men Type: BLOOD SPECIMENOrdering Facility: [facility] Address: [address] [place] [address] Performed By: #### 5 7021-8 ####[facility] LABORATORYCLIA [id number] [address] [place] Eosinophils/100 WBC (Bld) 0.0 % Normal [facility] Comment on above: Order Comment: Speci men Type: BLOOD SPECIMENOrdering Facility: [facility] Address: [address] [place] [address] Performed By: #### 5 7021-8 ####[facility] LABORATORYCLIA [id number] [place] [address] [place] Erythrocyte distribution width (RBC) [Ratio] 13.3 % Normal 11.5-15.0 [facility] Comment on above: Order Comment: Speci men Type: BLOOD SPECIMENOrdering Facility: [facility] Address: [address] [place] [address] Performed By: #### 5 7021-8 ####[facility] LABORATORYCLIA [id number] [place] [id number] [place] Hematocrit (Bld) [Volume fraction] 31.6 % Low 36.0-46.0 [facility] Comment on above: Order Comment: Speci men Type: BLOOD SPECIMENOrdering Facility: [facility] Address: [address] [place] [address] Performed By: #### 5 7021-8 ####[facility] LABORATORYCLIA [id number] [place] [address] [place] Hemoglobin (Bld) [Mass/Vol] 10.9 g/dL Low 11.5-15.5 [facility] Comment on above: Order Comment: Speci men Type: BLOOD SPECIMENOrdering Facility: [facility] Address: [address] [place] [address] Performed By: #### 5 7021-8 ####[facility] LABORATORYCLIA [id number] [place] [address] [place] Immature granulocytes (Bld) [#/Vol] 0.06 10*3/uL Normal <0.10 [facility] Comment on above: Order Comment: Speci men Type: BLOOD SPECIMENOrdering Facility: [facility] Address: [address] [place] [address] Performed By: #### 5 7021-8 ####[facility] LABORATORYCLIA [id number] [place] [id number] [place] Immature granulocytes/100 WBC (Bld) 0.6 % Normal [facility] Comment on above: Order Comment: Speci men Type: BLOOD SPECIMENOrdering Facility: [facility] Address: [address] [place] [address] Performed By: #### 5 7021-8 ####[facility] LABORATORYCLIA [id number] [place] [address] [place] Lymphocytes (Bld) [#/Vol] 0.48 10*3/uL Low 1.00-4.00 [facility] Comment on above: Order Comment: Speci men Type: BLOOD SPECIMENOrdering Facility: [facility] Address: [address] [place] [address] Performed By: #### 5 7021-8 ####[facility] [facility] LABORATORYCLIA [id number] [place] [id number] [place] Lymphocytes/100 WBC (Bld) 4.5 % Normal [facility] Comment on above: Order Comment: Speci men Type: BLOOD SPECIMENOrdering Facility: [facility] Address: [address] [place] [address] Performed By: #### 5 7021-8 ####[facility] [facility] LABORATORYCLIA [id number] [place] [address] [place] MCH (RBC) [Entitic mass] 30.3 pg Normal 26.0-34.0 [facility] Comment on above: Order Comment: Speci men Type: BLOOD SPECIMENOrdering Facility: [facility] Address: [address] [place] [address] Performed By: #### 5 7021-8 ####[facility] [facility] LABORATORYCLIA [id number] [place] [address] [place] MCHC (RBC) [Mass/Vol] 34.5 g/dL Normal 30.5-36.0 [facility] Comment on above: Order Comment: Speci men Type: BLOOD SPECIMENOrdering Facility: [facility] Address: [address] [place] [address] Performed By: #### 5 7021-8 ####[facility] [facility] LABORATORYCLIA [id number] [place] [id number] [place] MCV (RBC) [Entitic vol] 87.8 fL Normal 80.0-100.0 [facility] Comment on above: Order Comment: Speci men Type: BLOOD SPECIMENOrdering Facility: [facility] Address: [address] [place] [address] Performed By: #### 5 7021-8 ####[facility] LABORATORYCLIA [id number] [place] [id number] [place] Monocytes (Bld) [#/Vol] 0.33 10*3/uL Normal <0.87 [facility] Comment on above: Order Comment: Speci men Type: BLOOD SPECIMENOrdering Facility: [facility] Address: [address] [place] [address] Performed By: #### 5 7021-8 ####[facility] LABORATORYCLIA [id number] [place] [id number] [place] Monocytes/100 WBC (Bld) 3.1 % Normal [facility] Comment on above: Order Comment: Speci men Type: BLOOD SPECIMENOrdering Facility: [facility] Address: [address] [place] [address] Performed By: #### 5 7021-8 ####[facility] LABORATORYCLIA [id number] [place] [address] [place] Neutrophils (Bld) [#/Vol] 9.79 10*3/uL High 1.45-7.50 [facility] Comment on above: Order Comment: Speci men Type: BLOOD SPECIMENOrdering Facility: [facility] Address: [address] [place] [address] Performed By: #### 5 7021-8 ####[facility] LABORATORYCLIA [id number] [place] [id number] [place] Neutrophils/100 WBC (Bld) 91.6 % Normal [facility] Comment on above: Order Comment: Speci men Type: BLOOD SPECIMENOrdering Facility: [facility] Address: [address] [place] [address] Performed By: #### 5 7021-8 ####[facility] LABORATORYCLIA [id number] [place] [id number] [place] Nucleated RBC (Bld) [#/Vol] 10*3/uL Normal <0.01 [facility] Comment on above: Order Comment: Speci men Type: BLOOD SPECIMENOrdering Facility: [facility] Address: [address] [place] [address] Performed By: #### 5 7021-8 ####[facility] LABORATORYCLIA [id number] [place] [id number] [place] Nucleated RBC/100 WBC (Bld) [Ratio] 0.0 /100 WBC Normal [facility] Comment on above: Order Comment: Speci men Type: BLOOD SPECIMENOrdering Facility: [facility] Address: [address] [place] [address] Performed By: #### 5 7021-8 ####[facility] LABORATORYCLIA [id number] [place] [address] [place] Platelet mean volume (Bld) [Entitic vol] 8.3 fL Low 9.0-12.7 [facility] Comment on above: Order Comment: Speci men Type: BLOOD SPECIMENOrdering Facility: [facility] Address: [address] [place] [address] Performed By: #### 5 7021-8 ####[facility] LABORATORYCLIA [id number] [place] [id number] [place] Platelets (Bld) [#/Vol] 251 10*3/uL Normal 150-400 [facility] Comment on above: Order Comment: Speci men Type: BLOOD SPECIMENOrdering Facility: [facility] Address: [address] [place] [address] Performed By: #### 5 7021-8 ####[facility] LABORATORYCLIA [id number] [place] [id number] [place] RBC (Bld) [#/Vol] 3.60 10*6/uL Low 3.90-5.20 [facility] Comment on above: Order Comment: Speci men Type: BLOOD SPECIMENOrdering Facility: [facility] Address: [address] [place] [address] Performed By: #### 5 7021-8 ####[facility] LABORATORYCLIA [id number] [place] [id number] [place] WBC (Bld) [#/Vol] 10.68 10*3/uL Normal 3.70-11.00 [facility] Comment on above: Order Comment: Speci men Type: BLOOD SPECIMENOrdering Facility: [facility] Address: [address] [place] [address] Performed By: #### 5 7021-8 ####[facility] LABORATORYCLIA [id number] [place] [id number] [facility] CBC panel Auto (Bld)on 11-07 Erythrocyte distribution width (RBC) [Ratio] 13.7 % Normal 11.5-15.0 [facility] Comment on above: Order Comment: Speci men Type: BLOOD SPECIMENOrdering Facility: [facility] Address: [address] [place] [address] Performed By: #### 5 8410-2 ####[facility] LABORATORYCLIA [id number] [address] Hematocrit (Bld) [Volume fraction] 31.6 % Low 36.0-46.0 [facility] Comment on above: Order Comment: Speci men Type: BLOOD SPECIMENOrdering Facility: [facility] Address: [address] [place] [address] Performed By: #### 5 8410-2 ####[facility] LABORATORYCLIA [id number] [address] [place] Hemoglobin (Bld) [Mass/Vol] 10.5 g/dL Low 11.5-15.5 [facility] Comment on above: Order Comment: Speci men Type: BLOOD SPECIMENOrdering Facility: [facility] Address: [address] [place] [address] Performed By: #### 5 8410-2 ####[facility] LABORATORYCLIA [id number] [place] [id number] [place] MCH (RBC) [Entitic mass] 30.3 pg Normal 26.0-34.0 [facility] Comment on above: Order Comment: Speci men Type: BLOOD SPECIMENOrdering Facility: [facility] Address: [address] [place] [address] Performed By: #### 5 8410-2 ####[facility] LABORATORYCLIA [id number] [address] [place] MCHC (RBC) [Mass/Vol] 33.2 g/dL Normal 30.5-36.0 [facility] Comment on above: Order Comment: Speci men Type: BLOOD SPECIMENOrdering Facility: [facility] Address: [address] [place] [address] Performed By: #### 5 8410-2 ####[facility] LABORATORYCLIA [id number] [place] [id number] [place] MCV (RBC) [Entitic vol] 91.1 fL Normal 80.0-100.0 [facility] Comment on above: Order Comment: Speci men Type: BLOOD SPECIMENOrdering Facility: [facility] Address: [address] [place] [address] Performed By: #### 5 8410-2 ####[facility] [facility] LABORATORYCLIA [id number] [place] [address] [place] Nucleated RBC (Bld) [#/Vol] 10*3/uL Normal <0.01 [facility] Comment on above: Order Comment: Speci men Type: BLOOD SPECIMENOrdering Facility: [facility] Address: [address] [place] [address] Performed By: #### 5 8410-2 ####[facility] [facility] LABORATORYCLIA [id number] [place] [address] [place] Platelet mean volume (Bld) [Entitic vol] 8.7 fL Low 9.0-12.7 [facility] Comment on above: Order Comment: Speci men Type: BLOOD SPECIMENOrdering Facility: [facility] Address: [address] [place] [address] Performed By: #### 5 8410-2 ####[facility] [facility] LABORATORYCLIA [id number] [place] [id number] [place] Platelets (Bld) [#/Vol] 239 10*3/uL Normal 150-400 [facility] Comment on above: Order Comment: Speci men Type: BLOOD SPECIMENOrdering Facility: [facility] Address: [address] [place] [address] Performed By: #### 5 8410-2 ####[facility] LABORATORYCLIA [id number] [place] [address] [place] RBC (Bld) [#/Vol] 3.47 10*6/uL Low 3.90-5.20 [facility] Comment on above: Order Comment: Mason men Type: BLOOD SPECIMENOrdering Facility: [facility] Address: [address] [place] [address] Performed By: #### 5 8410-2 ####[facility] LABORATORYCLIA [id number] [address] [place] WBC (Bld) [#/Vol] 4.61 10*3/uL Normal 3.70-11.00 [facility] Comment on above: Order Comment: Mason simpson Type: BLOOD SPECIMENOrdering Facility: [facility] Address: [address] [place] [address] Performed By: #### 5 8410-2 ####[facility] LABORATORYCLIA [id number] [address] HIGH SENSITIVITY TROPONIN To n 11-08-2023 Troponin T.cardiac High sensitivity method [Mass/Vol] 11 ng/L Normal <12 [facility] Comment on above: Order Comment: Mason simpson Type: BLOOD SPECIMENOrdering Facility: [facility] Address: [address] [place] [address] Result Comment: When assessing risk for acute coronary syndromes: In patients undergoing blood draw greater than or equal to 2 hours from symptom onset, with history of very low to moderate risk and non-ischemic ECG, an initial hs-Troponin T less than 12 ng/L AND a 1 hour delta hs-Troponin T less than 3 ng/L should be considered very low risk for 30 day MACE. Performed By: #### H STNT, 71989-7 ####[facility] LABORATORYCLIA [id number] [place] [id number] [place] HISTORY PHYSICALon HISTORY PHYSICAL Normal [facility] Magnesium SerPl-mCncon 11-07 Magnesium [Mass/Vol] 1.9 mg/dL Normal 1.7-2.3 [facility] Comment on above: Order Comment: Speci men Type: BLOOD SPECIMENOrdering Facility: [facility] Address: [address] [place] [address] Performed By: #### 2 4321-2, 2776-07, ####[facility] LABORATORYCLIA [id number] [place] [address] [facility] [place] NURSING PROGon 11-08-2023 NURSING PROG [facility] NURSING PROG Normal [facility] OPERATIVE NOon 11-08-2023 OPERATIVE NO Normal [facility] PT EDon 11-08-2023 PT ED [facility] Phosphate SerPl-mCncon 11-07 Phosphate [Mass/Vol] 4.2 mg/dL Normal 2.7-4.8 [facility] Comment on above: Order Comment: Speci men Type: BLOOD SPECIMENOrdering Facility: [facility] Address: [address] [place] [address] Performed By: #### 2 4321-2, 2776-07, ####[facility] LABORATORYCLIA [id number] [place] [id number] [place] SURGICAL PATHOLOGYon 024 CASE REPORT Normal [facility] Comment on above: Order Comment: Speci men Type: TISSUE SPECIMENOrdering Facility: [facility] Address: [address] [place] [address] Result Comment: Surg [facility] Pathology Report Case: [id number] Provider: Laisha Singer MD Collected: 11/08/2023 11:56 AMOrdering Location: [facility] Received: 11/08/2023 01:53 PM Operating RoomPathologist: Oscar Marshall MDSpecimen: Small Bowel, Ileostomy Performed By: #### S ####[facility] LABORATORYCLIA [id number] [place] [id number] [place] CLINICAL HISTORY Normal [facility] Comment on above: Order Comment: Speci men Type: TISSUE SPECIMENOrdering Facility: [facility] Address: [address] [place] [address] Result Comment: Pre- op diagnosis:Attention to ileostomy (HCC) [Z43.2]Partial small bowel obstruction (HCC) [K56.600] Performed By: #### S ####[facility] LABORATORYCLIA [id number] [address] FINAL DIAGNOSIS Normal [facility] Comment on above: Order Comment: Speci men Type: TISSUE SPECIMENOrdering Facility: [facility] Address: [address] [place] [address] Result Comment: Ileo stomy, excision:- Enterocutaneous tissue with focal nonspecific inflammatory changes and mucosal erosion, consistent with ostomy site.JEL 11/10/2023 Performed By: #### S ####[facility] LABORATORYCLIA [id number] [address] FINAL PERFORMING LAB Normal [facility] Comment on above: Order Comment: Speci men Type: TISSUE SPECIMENOrdering Facility: [facility] Address: [address] [place] [address] Result Comment: Diag nostic interpretation performed at [facility], [address] [place] [address] CLIA# [id number] Director: Dheeraj Suarez M.D. Performed By: #### S ####[facility] LABORATORYCLIA [id number] [address] GROSS DESCRIPTION Normal [facility] Comment on above: Order Comment: Speci men Type: TISSUE SPECIMENOrdering Facility: [facility] Address: [address] [place] [address] Result Comment: A. S mall Bowel, IleostomyReceived in formalin designated ileostomy is a loop ostomy specimen that measures 6 cm in length and 2.7 cm in diameter. One end is open, and the opposite end contains two openings. Surrounding the single opening is a wong rick rim of skin. Through this opening, the mucosa is prolapsed. The bowel mucosa is unremarkable showing normal mucosal folds with a wall thickness of 0.6 cm. Developmental Behavioral Physician sections are submitted in one cassette.WE November 08, 2023 2:03 PMGross examination performed at [facility], [address] [place] [address] Performed By: #### S ####[facility] LABORATORYCLIA [id number] [place] [address] [place] ALLIED HEALTHon 11-07-2023 ALLIED HEALTH Normal [facility] Basic metabolic 2000 panelon 11-07-2023 Anion gap [Moles/Vol] 12 mmol/L Normal 9-18 [facility] Comment on above: Order Comment: Speci men Type: BLOOD SPECIMENOrdering Facility: [facility] Address: [address] [place] [address] Performed By: #### 2 4321-2, , 2776-07 ####[facility] LABORATORYCLIA [id number] [place] [id number] [place] Calcium [Mass/Vol] 9.3 mg/dL Normal 8.5-10.2 [facility] Comment on above: Order Comment: Speci men Type: BLOOD SPECIMENOrdering Facility: [facility] Address: [address] [place] [address] Performed By: #### 2 4321-2, , 2776-07 ####[facility] LABORATORYCLIA [id number] [place] [id number] [place] Chloride [Moles/Vol] 102 mmol/L Normal 97-105 [facility] Comment on above: Order Comment: Speci men Type: BLOOD SPECIMENOrdering Facility: [facility] Address: [address] [place], [place] [address] Performed By: #### 2 4321-2, , 2776-07 ####[facility] LABORATORYCLIA [id number] [place] [address] [place] CO2 [Moles/Vol] 22 mmol/L Normal 22-30 [facility] Comment on above: Order Comment: Speci men Type: BLOOD SPECIMENOrdering Facility: [facility] Address: [address] [place], [place] [address] Performed By: #### 2 4321-2, , 2776-07 ####[facility] [facility] LABORATORYCLIA [id number] [place] [address] [place] Creatinine [Mass/Vol] 0.83 mg/dL Normal 0.58-0.96 [facility] Comment on above: Order Comment: Mason simpson Type: BLOOD SPECIMENOrdering Facility: [facility] Address: [address] [place] [address] Performed By: #### 2 4321-2, , 2776-07 ####[facility] LABORATORYCLIA [id number] [place] [id number] [place] [facility] Creatinine and Glomerular filtration rate.predicted panel (S/P/Bld) 76 mL/min/1.73m??? Normal >=60 [facility] Comment on above: Order Comment: Mason simpson Type: BLOOD SPECIMENOrdering Facility: [facility] Address: [address] [place] [address] Result Comment: Farhana mated Glomerular Filtration Rate (eGFR) is calculated using the 2020 CKD-EPI creatinine equation. This equation utilizes serum creatinine, sex, and age as parameters. The creatinine assay has traceable calibration to isotope dilution-mass spectrometry. Refer to KDIGO guidelines for clinical interpretation. In patients with unstable renal function, e.g. those with acute kidney injury, the eGFR may not accurately reflect actual GFR. Performed By: #### 2 4321-2, , 2776-07 ####[facility] LABORATORYCLIA [id number] [place] [id number] [place] Glucose [Mass/Vol] 94 mg/dL Normal 74-99 [facility] Comment on above: Order Comment: Mason simpson Type: BLOOD SPECIMENOrdering Facility: [facility] Address: [address] [place] [address] Result Comment: The [place] Diabetes [employer] (ADA) provides guidance for cutoff values for fasting glucose and random glucose. The ADA defines fasting as no caloric intake for at least 8 hours. Fasting plasma glucose results between 100 to 125 mg/dL indicate increased risk for diabetes (prediabetes).Fasting plasma glucose results greater than or equal to 126 mg/dL meet the criteria for diagnosis of diabetes. In the absence of unequivocal hyperglycemia, results should be confirmed by repeat testing. In a patient with classic symptoms of hyperglycemia or hyperglycemic crisis, random plasma glucose results greater than or equal to 200 mg/dL meet the criteria for diagnosis of diabetes.Reference: Standards of Medical Care in Diabetes 2016, [place] [employer]. Diabetes Care. 2016.39(Suppl 1). Performed By: #### 2 4321-2, , 2776-07 ####[facility] LABORATORYCLIA [id number] [place] [address] [place] Potassium [Moles/Vol] 4.0 mmol/L Normal 3.7-5.1 [facility] Comment on above: Order Comment: Speci tatiana Type: BLOOD SPECIMENOrdering Facility: [facility] Address: [address] [place] [address] Performed By: #### 2 4321-2, , 2776-07 ####[facility] [facility] LABORATORYCLIA [id number] [place] [id number] [place] Sodium [Moles/Vol] 136 mmol/L Normal 136-144 [facility] Comment on above: Order Comment: Speci men Type: BLOOD SPECIMENOrdering Facility: [facility] Address: [address] [place] [address] Performed By: #### 2 4321-2, , 2776-07 ####[facility] LABORATORYCLIA [id number] [place] [id number] [place] Urea nitrogen [Mass/Vol] 18 mg/dL Normal 7-21 [facility] Comment on above: Order Comment: Speci men Type: BLOOD SPECIMENOrdering Facility: [facility] Address: [address] [place] [address] Performed By: #### 2 4321-2, , 2776-07 ####[facility] [facility] LABORATORYCLIA [id number] [place] [id number] [place] CBC panel Auto (Bld)on 11-06 Erythrocyte distribution width (RBC) [Ratio] 14.2 % Normal 11.5-15.0 [facility] Comment on above: Order Comment: Speci men Type: BLOOD SPECIMENOrdering Facility: [facility] Address: [address] [place] [address] Performed By: #### 5 8410-2 ####[facility] LABORATORYCLIA [id number] [place] [address] [place] Hematocrit (Bld) [Volume fraction] 35.8 % Low 36.0-46.0 [facility] Comment on above: Order Comment: Speci men Type: BLOOD SPECIMENOrdering Facility: [facility] Address: [address] [place] [address] Performed By: #### 5 8410-2 ####[facility] [facility] LABORATORYCLIA [id number] [place] [address] [place] Hemoglobin (Bld) [Mass/Vol] 11.9 g/dL Normal 11.5-15.5 [facility] Comment on above: Order Comment: Speci men Type: BLOOD SPECIMENOrdering Facility: [facility] Address: [address] [place] [address] Performed By: #### 5 8410-2 ####[facility] [facility] LABORATORYCLIA [id number] [place] [address] [place] MCH (RBC) [Entitic mass] 30.4 pg Normal 26.0-34.0 [facility] Comment on above: Order Comment: Speci men Type: BLOOD SPECIMENOrdering Facility: [facility] Address: [address] [place] [address] Performed By: #### 5 8410-2 ####[facility] [facility] LABORATORYCLIA [id number] [place] [id number] [place] MCHC (RBC) [Mass/Vol] 33.2 g/dL Normal 30.5-36.0 [facility] Comment on above: Order Comment: Speci men Type: BLOOD SPECIMENOrdering Facility: [facility] Address: [address] [place] [address] Performed By: #### 5 8410-2 ####[facility] [facility] LABORATORYCLIA [id number] [place] [address] [place] MCV (RBC) [Entitic vol] 91.6 fL Normal 80.0-100.0 [facility] Comment on above: Order Comment: Speci men Type: BLOOD SPECIMENOrdering Facility: [facility] Address: [address] [place] [address] Performed By: #### 5 8410-2 ####[facility] LABORATORYCLIA [id number] [place] [id number] [place] Nucleated RBC (Bld) [#/Vol] 10*3/uL Normal <0.01 [facility] Comment on above: Order Comment: Speci men Type: BLOOD SPECIMENOrdering Facility: [facility] Address: [address] [place] [address] Performed By: #### 5 8410-2 ####[facility] LABORATORYCLIA [id number] [place] [address] [place] Platelet mean volume (Bld) [Entitic vol] 8.2 fL Low 9.0-12.7 [facility] Comment on above: Order Comment: Speci men Type: BLOOD SPECIMENOrdering Facility: [facility] Address: [address] [place] [address] Performed By: #### 5 8410-2 ####[facility] LABORATORYCLIA [id number] [place] [address] [place] Platelets (Bld) [#/Vol] 271 10*3/uL Normal 150-400 [facility] Comment on above: Order Comment: Speci men Type: BLOOD SPECIMENOrdering Facility: [facility] Address: [address] [place] [address] Performed By: #### 5 8410-2 ####[facility] LABORATORYCLIA [id number] [place] [id number] [place] RBC (Bld) [#/Vol] 3.91 10*6/uL Normal 3.90-5.20 [facility] Comment on above: Order Comment: Speci men Type: BLOOD SPECIMENOrdering Facility: [facility] Address: [address] [place] [address] Performed By: #### 5 8410-2 ####[facility] LABORATORYCLIA [id number] [place] [address] [place] WBC (Bld) [#/Vol] 5.03 10*3/uL Normal 3.70-11.00 [facility] Comment on above: Order Comment: Speci men Type: BLOOD SPECIMENOrdering Facility: [facility] Address: [address] [place] [address] Performed By: #### 5 8410-2 ####[facility] LABORATORYCLIA [id number] [place] [id number] [place] Magnesium SerPl-mCncon 11-06 Magnesium [Mass/Vol] 2.0 mg/dL Normal 1.7-2.3 [facility] Comment on above: Order Comment: Speci men Type: BLOOD SPECIMENOrdering Facility: [facility] Address: [address] [place] [address] Performed By: #### 2 4321-2, 98387-7, 2777-1 ####[facility] LABORATORYCLIA [id number] [place] [id number] [place] NURSING PROGon 11-07-2023 NURSING PROG Normal [facility] NURSING PROG Normal [facility] Phosphate SerPl-mCncon 11-06 Phosphate [Mass/Vol] 4.6 mg/dL Normal 2.7-4.8 [facility] Comment on above: Order Comment: Speci men Type: BLOOD SPECIMENOrdering Facility: [facility] Address: [address] [place] [address] Performed By: #### 2 4321-2, 06805-7, 2777- ####[facility] LABORATORYCLIA [id number] [place] [id number] [place] XR COLON SINGLE CONTRASTon 0 11-07-2023 XR COLON SINGLE CONTRAST Normal [facility] ALLIED HEALTHon 11-06-2023 ALLIED HEALTH Normal [facility] CBC W Auto Differential pane l (Bld)on 11-06-2023 Basophils (Bld) [#/Vol] 0.03 10*3/uL Normal <0.11 [facility] Comment on above: Order Comment: Speci men Type: BLOOD SPECIMENOrdering Facility: [facility] Address: [address] [place] [address] Performed By: #### 5 7021-8 ####[facility] LABORATORYCLIA [id number] [place] [id number] [place] Basophils/100 WBC (Bld) 0.4 % Normal [facility] Comment on above: Order Comment: Speci men Type: BLOOD SPECIMENOrdering Facility: [facility] Address: [address] [place] [address] Performed By: #### 5 7021-8 ####[facility] [facility] LABORATORYCLIA [id number] [place] [address] [place] Differential cell count method Nom (Bld) Auto Normal [facility] Comment on above: Order Comment: Speci men Type: BLOOD SPECIMENOrdering Facility: [facility] Address: [address] [place] [address] Performed By: #### 5 7021-8 ####[facility] LABORATORYCLIA [id number] [place] [address] [place] Eosinophils (Bld) [#/Vol] 0.11 10*3/uL Normal <0.46 [facility] Comment on above: Order Comment: Speci men Type: BLOOD SPECIMENOrdering Facility: [facility] Address: [address] [place] [address] Performed By: #### 5 7021-8 ####[facility] LABORATORYCLIA [id number] [address] [place] Eosinophils/100 WBC (Bld) 1.4 % Normal [facility] Comment on above: Order Comment: Speci men Type: BLOOD SPECIMENOrdering Facility: [facility] Address: [address] [place] [address] Performed By: #### 5 7021-8 ####[facility] [facility] LABORATORYCLIA [id number] [place] [id number] [place] Erythrocyte distribution width (RBC) [Ratio] 13.9 % Normal 11.5-15.0 [facility] Comment on above: Order Comment: Speci men Type: BLOOD SPECIMENOrdering Facility: [facility] Address: [address] [place] [address] Performed By: #### 5 7021-8 ####[facility] LABORATORYCLIA [id number] [place] [id number] [place] Hematocrit (Bld) [Volume fraction] 39.4 % Normal 36.0-46.0 [facility] Comment on above: Order Comment: Speci men Type: BLOOD SPECIMENOrdering Facility: [facility] Address: [address] [place] [address] Performed By: #### 5 7021-8 ####[facility] [facility] LABORATORYCLIA [id number] [place] [address] [place] Hemoglobin (Bld) [Mass/Vol] 13.3 g/dL Normal 11.5-15.5 [facility] Comment on above: Order Comment: Speci men Type: BLOOD SPECIMENOrdering Facility: [facility] Address: [address] [place] [address] Performed By: #### 5 7021-8 ####[facility] [facility] LABORATORYCLIA [id number] [place] [address] [place] Immature granulocytes (Bld) [#/Vol] 10*3/uL Normal <0.10 [facility] Comment on above: Order Comment: Speci men Type: BLOOD SPECIMENOrdering Facility: [facility] Address: [address] [place] [address] Performed By: #### 5 7021-8 ####[facility] [facility] LABORATORYCLIA [id number] [place] [id number] [place] Immature granulocytes/100 WBC (Bld) 0.3 % Normal [facility] Comment on above: Order Comment: Speci men Type: BLOOD SPECIMENOrdering Facility: [facility] Address: [address] [place] [address] Performed By: #### 5 7021-8 ####[facility] [facility] LABORATORYCLIA [id number] [place] [address] [place] Lymphocytes (Bld) [#/Vol] 0.63 10*3/uL Low 1.00-4.00 [facility] Comment on above: Order Comment: Speci men Type: BLOOD SPECIMENOrdering Facility: [facility] Address: [address] [place] [address] Performed By: #### 5 7021-8 ####[facility] LABORATORYCLIA [id number] [address] STATES [facility] Lymphocytes/100 WBC (Bld) 8.1 % Normal [facility] Comment on above: Order Comment: Speci men Type: BLOOD SPECIMENOrdering Facility: [facility] Address: [address] [place] [address] Performed By: #### 5 7021-8 ####[facility] LABORATORYCLIA [id number] [address] MCH (RBC) [Entitic mass] 30.1 pg Normal 26.0-34.0 [facility] Comment on above: Order Comment: Speci men Type: BLOOD SPECIMENOrdering Facility: [facility] Address: [address] [place] [address] Performed By: #### 5 7021-8 ####[facility] LABORATORYCLIA [id number] [address] [place] MCHC (RBC) [Mass/Vol] 33.8 g/dL Normal 30.5-36.0 [facility] Comment on above: Order Comment: Speci men Type: BLOOD SPECIMENOrdering Facility: [facility] Address: [address] [place] [address] Performed By: #### 5 7021-8 ####[facility] LABORATORYCLIA [id number] [address] [place] MCV (RBC) [Entitic vol] 89.1 fL Normal 80.0-100.0 [facility] Comment on above: Order Comment: Speci men Type: BLOOD SPECIMENOrdering Facility: [facility] Address: [address] [place] [address] Performed By: #### 5 7021-8 ####[facility] LABORATORYCLIA [id number] [address] [place] Monocytes (Bld) [#/Vol] 0.47 10*3/uL Normal <0.87 [facility] Comment on above: Order Comment: Speci men Type: BLOOD SPECIMENOrdering Facility: [facility] Address: [address] [place] [address] Performed By: #### 5 7021-8 ####[facility] LABORATORYCLIA [id number] [place] [id number] [place] Monocytes/100 WBC (Bld) 6.1 % Normal [facility] Comment on above: Order Comment: Speci men Type: BLOOD SPECIMENOrdering Facility: [facility] Address: [address] [place] [address] Performed By: #### 5 7021-8 ####[facility] LABORATORYCLIA [id number] [place] [address] [place] Neutrophils (Bld) [#/Vol] 6.48 10*3/uL Normal 1.45-7.50 [facility] Comment on above: Order Comment: Speci men Type: BLOOD SPECIMENOrdering Facility: [facility] Address: [address] [place] [address] Performed By: #### 5 7021-8 ####[facility] LABORATORYCLIA [id number] [place] [address] [place] Neutrophils/100 WBC (Bld) 83.7 % Normal [facility] Comment on above: Order Comment: Speci men Type: BLOOD SPECIMENOrdering Facility: [facility] Address: [address] [place] [address] Performed By: #### 5 7021-8 ####[facility] LABORATORYCLIA [id number] [place] [id number] [place] Nucleated RBC (Bld) [#/Vol] 10*3/uL Normal <0.01 [facility] Comment on above: Order Comment: Speci men Type: BLOOD SPECIMENOrdering Facility: [facility] Address: [address] [place] [address] Performed By: #### 5 7021-8 ####[facility] LABORATORYCLIA [id number] [place] [id number] [place] Nucleated RBC/100 WBC (Bld) [Ratio] 0.0 /100 WBC Normal [facility] Comment on above: Order Comment: Speci men Type: BLOOD SPECIMENOrdering Facility: [facility] Address: [address] [place] [address] Performed By: #### 5 7021-8 ####[facility] [facility] LABORATORYCLIA [id number] [place] [id number] [place] Platelet mean volume (Bld) [Entitic vol] 8.5 fL Low 9.0-12.7 [facility] Comment on above: Order Comment: Speci men Type: BLOOD SPECIMENOrdering Facility: [facility] Address: [address] [place] [address] Performed By: #### 5 7021-8 ####[facility] [facility] LABORATORYCLIA [id number] [place] [address] [place] Platelets (Bld) [#/Vol] 329 10*3/uL Normal 150-400 [facility] Comment on above: Order Comment: Speci men Type: BLOOD SPECIMENOrdering Facility: [facility] Address: [address] [place] [address] Performed By: #### 5 7021-8 ####[facility] [facility] LABORATORYCLIA [id number] [place] [address] [place] RBC (Bld) [#/Vol] 4.42 10*6/uL Normal 3.90-5.20 [facility] Comment on above: Order Comment: Speci men Type: BLOOD SPECIMENOrdering Facility: [facility] Address: [address] [place] [address] Performed By: #### 5 7021-8 ####[facility] LABORATORYCLIA [id number] [place] [id number] [place] WBC (Bld) [#/Vol] 7.74 10*3/uL Normal 3.70-11.00 [facility] Comment on above: Order Comment: Speci men Type: BLOOD SPECIMENOrdering Facility: [facility] Address: [address] [place] [address] Performed By: #### 5 7021-8 ####[facility] LABORATORYCLIA [id number] [place] [address] [place] CNPNon 11-06-2023 CNPN Normal [facility] CT ABD/PEL W IVCONon 024 CT ABD/PEL W IVCON Normal [facility] Comprehensive metabolic 2000 panelon 11-06-2023 Albumin [Mass/Vol] 4.7 g/dL Normal 3.9-4.9 [facility] Comment on above: Order Comment: Speci men Type: BLOOD SPECIMENOrdering Facility: [facility] Address: [address] [place] [address] Performed By: #### 2 4323-8, 3, ####[facility] LABORATORYCLIA [id number] [place] [id number] [place] ALP [Catalytic activity/Vol] 100 U/L Normal 34-123 [facility] Comment on above: Order Comment: Speci men Type: BLOOD SPECIMENOrdering Facility: [facility] Address: [address] [place] [address] Performed By: #### 2 4323-8, 3, ####[facility] LABORATORYCLIA [id number] [place] [id number] [place] ALT [Catalytic activity/Vol] 32 U/L Normal 7-38 [facility] Comment on above: Order Comment: Speci men Type: BLOOD SPECIMENOrdering Facility: [facility] Address: [address] [place] [address] Performed By: #### 2 4323-8, 3, ####[facility] LABORATORYCLIA [id number] [place] [address] [place] Anion gap [Moles/Vol] 16 mmol/L Normal 9-18 [facility] Comment on above: Order Comment: Speci men Type: BLOOD SPECIMENOrdering Facility: [facility] Address: [address] [place] [address] Performed By: #### 2 4323-8, 3039-3, ####[facility] LABORATORYCLIA [id number] [place] [id number] [place] AST [Catalytic activity/Vol] 39 U/L High 13-35 [facility] Comment on above: Order Comment: Speci men Type: BLOOD SPECIMENOrdering Facility: [facility] Address: [address] [place] [address] Performed By: #### 2 4323-8, 0-3, ####[facility] LABORATORYCLIA [id number] [place] [id number] [place] Bilirubin [Mass/Vol] 0.8 mg/dL Normal 0.2-1.3 [facility] Comment on above: Order Comment: Speci men Type: BLOOD SPECIMENOrdering Facility: [facility] Address: [address] [place] [address] Performed By: #### 2 4323-8, 3, ####[facility] LABORATORYCLIA [id number] [place] [id number] [place] Calcium [Mass/Vol] 10.0 mg/dL Normal 8.5-10.2 [facility] Comment on above: Order Comment: Speci men Type: BLOOD SPECIMENOrdering Facility: [facility] Address: [address] [place] [address] Performed By: #### 2 4323-8, 3, ####[facility] LABORATORYCLIA [id number] [place] [id number] [place] Chloride [Moles/Vol] 99 mmol/L Normal 97-105 [facility] Comment on above: Order Comment: Speci men Type: BLOOD SPECIMENOrdering Facility: [facility] Address: [address] [place] [address] Performed By: #### 2 4323-8, 03, ####[facility] LABORATORYCLIA [id number] [place] [id number] [place] CO2 [Moles/Vol] 20 mmol/L Low 22-30 [facility] Comment on above: Order Comment: Speci men Type: BLOOD SPECIMENOrdering Facility: [facility] Address: [address] [place] [id number] Performed By: #### 2 4323-8, 0-3, ####[facility] LABORATORYCLIA [id number] [place] [id number] [place] Creatinine [Mass/Vol] 0.84 mg/dL Normal 0.58-0.96 [facility] Comment on above: Order Comment: Speci men Type: BLOOD SPECIMENOrdering Facility: [facility] Address: [address] [place] [address] Performed By: #### 2 4323-8, 3040-3, ####[facility] LABORATORYCLIA [id number] [place] [id number] [place] Creatinine and Glomerular filtration rate.predicted panel (S/P/Bld) 75 mL/min/1.73m??? Normal >=60 [facility] Comment on above: Order Comment: Speci men Type: BLOOD SPECIMENOrdering Facility: [facility] Address: [address] [place] [address] Result Comment: Farhana mated Glomerular Filtration Rate (eGFR) is calculated using the 2020 CKD-EPI creatinine equation. This equation utilizes serum creatinine, sex, and age as parameters. The creatinine assay has traceable calibration to isotope dilution-mass spectrometry. Refer to KDIGO guidelines for clinical interpretation. In patients with unstable renal function, e.g. those with acute kidney injury, the eGFR may not accurately reflect actual GFR. Performed By: #### 2 4323-8, 0-3, ####[facility] LABORATORYCLIA [id number] [place] [id number] [place] Glucose [Mass/Vol] 107 mg/dL High 74-99 [facility] Comment on above: Order Comment: Speci men Type: BLOOD SPECIMENOrdering Facility: [facility] Address: [address] [place] [address] Result Comment: The [place] Diabetes [employer] (ADA) provides guidance for cutoff values for fasting glucose and random glucose. The ADA defines fasting as no caloric intake for at least 8 hours. Fasting plasma glucose results between 100 to 125 mg/dL indicate increased risk for diabetes (prediabetes).Fasting plasma glucose results greater than or equal to 126 mg/dL meet the criteria for diagnosis of diabetes. In the absence of unequivocal hyperglycemia, results should be confirmed by repeat testing. In a patient with classic symptoms of hyperglycemia or hyperglycemic crisis, random plasma glucose results greater than or equal to 200 mg/dL meet the criteria for diagnosis of diabetes.Reference: Standards of Medical Care in Diabetes 2016, [place] [employer]. Diabetes Care. 2016.39(Suppl 1). Performed By: #### 2 4323-8, 0-3, ####[facility] LABORATORYCLIA [id number] [place] [id number] [place] Potassium [Moles/Vol] 4.0 mmol/L Normal 3.7-5.1 [facility] Comment on above: Order Comment: Mason simpson Type: BLOOD SPECIMENOrdering Facility: [facility] Address: [address] [place] [address] Performed By: #### 2 4323-8, 3, ####[facility] LABORATORYCLIA [id number] [place] [id number] [place] Protein [Mass/Vol] 7.6 g/dL Normal 6.3-8.0 [facility] Comment on above: Order Comment: Mason simpson Type: BLOOD SPECIMENOrdering Facility: [facility] Address: [address] [place] [address] Performed By: #### 2 4323-8, 3039-09, ####[facility] LABORATORYCLIA [id number] [place] [id number] [place] Sodium [Moles/Vol] 135 mmol/L Low 136-144 [facility] Comment on above: Order Comment: Mason simpson Type: BLOOD SPECIMENOrdering Facility: [facility] Address: [address] [place] [address] Performed By: #### 2 4323-8, 3, ####[facility] LABORATORYCLIA [id number] [place] [id number] [place] Urea nitrogen [Mass/Vol] 18 mg/dL Normal 7-21 [facility] Comment on above: Order Comment: Speci men Type: BLOOD SPECIMENOrdering Facility: [facility] Address: [facility] [place] [id number] Performed By: #### 2 4323-8, 3040-3, ####[facility] LABORATORYCLIA [id number] [place] [id number] [place] ED PROV NOTEon 11-06-2023 ED PROV NOTE Normal [facility] ED Triage Noteon 11-06-2023 ED Triage Note Normal [facility] HISTORY PHYSICALon HISTORY PHYSICAL Normal [facility] Lipase SerPl-cCncon 11-06-19 24 Lipase [Catalytic activity/Vol] 9 U/L Low 16-61 [facility] Comment on above: Order Comment: Speci men Type: BLOOD SPECIMENOrdering Facility: [facility] Address: [address] [place] [address] Performed By: #### 2 4323-8, 3, ####[facility] LABORATORYCLIA [id number] [place] [id number] [place] Magnesium SerPl-mCncon 11-05 Magnesium [Mass/Vol] 1.4 mg/dL Low 1.7-2.3 [facility] Comment on above: Order Comment: Speci men Type: BLOOD SPECIMENOrdering Facility: [facility] Address: [address] [place], [place] [id number] Performed By: #### 2 4323-8, 3, ####[facility] LABORATORYCLIA [id number] [place] [id number] [place] NURSING PROGon 11-06-2023 NURSING PROG Normal [facility] PT panel Coag (PPP)on 2023 INR Coag (PPP) [Relative time] 0.9 {INR} Normal 0.9-1.3 [facility] Comment on above: Order Comment: Speci men Type: BLOOD SPECIMENOrdering Facility: [facility] Address: [address] [place], [place] [id number] Result Comment: Ria min K Antagonist (VKA) Therapeutic Range: INR 2 to 3 (Target INR of 2.5)Note: For patients treated with VKA drugs, such as warfarin, the [place] [employer] 2012 Guideline recommends a therapeutic INR range of 2 to 3 (target INR of 2.5). This recommendation includes high-risk patients with antiphospholipid syndrome with previous arterial or venous thromboembolism, current-generation mechanical or bioprosthetic aortic heart valve replacement.Note: Patients with mechanical aortic valve replacement and additional risk factors for thromboembolic events (atrial fibrillation, previous thromboembolism, LV dysfunction, hypercoagulable conditions) or an older generation mechanical AVR (i.e., ball in-Cage) or any mechanical MVR should have a INR therapeutic range of 2.5 to 3.5 (target INR of 3).Angel JOHN, et al. Chest 2012, 141:7S-47SMaria E RA, et al. [facility] 2017, 70: 252-289 Performed By: #### 3 4528-0, 13145-8 ####[facility] LABORATORYCLIA [id number] [place] [address] [place] PT Coag (PPP) [Time] 10.6 s Normal 9.7-13.0 [facility] Comment on above: Order Comment: Speci men Type: BLOOD SPECIMENOrdering Facility: [facility] Address: [address] [place] [address] Performed By: #### 3 4528-0, 32201-1 ####[facility] LABORATORYCLIA [id number] [place] [id number] [place] TYPE + SCREENon 11-06-2023 ABO O Normal [facility] Comment on above: Order Comment: Speci men Type: BLOOD SPECIMENOrdering Facility: [facility] Address: [address] [place] [address] Performed By: #### T SCR ####[facility] BLOOD BANKCLIA [id number] [place] [address] [place] HISTORICAL AB SCR STATUS Negative Normal [facility] Comment on above: Order Comment: Speci men Type: BLOOD SPECIMENOrdering Facility: [facility] Address: [address] [place] [address] Performed By: #### T SCR ####[facility] BLOOD BANKCLIA [id number] [place] [id number] [place] Rh Nom (Bld) Negative Normal [facility] Comment on above: Order Comment: Speci men Type: BLOOD SPECIMENOrdering Facility: [facility] Address: [address] [place] [address] Performed By: #### T SCR ####[facility] BLOOD BANKCLIA [id number] [address] TYPE AND SCREEN EXPIRATION 11/09/2023 23:59 Normal [facility] Comment on above: Order Comment: Speci men Type: BLOOD SPECIMENOrdering Facility: [facility] Address: [address] [place] [address] Performed By: #### T SCR ####[facility] BLOOD BANKCLIA [id number] [address] [place] Urinalysis complete panel (U )on 11-06-2023 Bilirubin Ql (U) Negative Normal Negative [facility] Comment on above: Order Comment: Speci men Type: URINE SPECIMENOrdering Facility: [facility] Address: [address] [place] [address] Performed By: #### 2 4356-8 ####[facility] LABORATORYCLIA [id number] [address] [place] Clarity (Unsp spec) Clear Normal Clear [facility] Comment on above: Order Comment: Speci men Type: URINE SPECIMENOrdering Facility: [facility] Address: [address] [place] [address] Performed By: #### 2 4356-8 ####[facility] LABORATORYCLIA [id number] [address] Color (U) Light Yellow Normal Yellow [facility] Comment on above: Order Comment: Speci men Type: URINE SPECIMENOrdering Facility: [facility] Address: [address] [place] [address] Performed By: #### 2 4356-8 ####[facility] LABORATORYCLIA [id number] [place] [address] [place] Epithelial cells LM.HPF (Urine sed) [#/Area] Few Normal [facility] Comment on above: Order Comment: Speci men Type: URINE SPECIMENOrdering Facility: [facility] Address: [address] [place] [address] Performed By: #### 2 4356-8 ####[facility] [facility] LABORATORYCLIA [id number] [place] [address] [place] Glucose Test strip (U) [Mass/Vol] Negative Normal Trace, Negative [facility] Comment on above: Order Comment: Speci men Type: URINE SPECIMENOrdering Facility: [facility] Address: [address] [place] [address] Performed By: #### 2 4356-8 ####[facility] [facility] LABORATORYCLIA [id number] [place] [address] [place] Hemoglobin Ql (U) 1+ Abnormal Negative, Trace [facility] Comment on above: Order Comment: Speci men Type: URINE SPECIMENOrdering Facility: [facility] Address: [address] [place] [address] Performed By: #### 2 4356-8 ####[facility] LABORATORYCLIA [id number] [address] [place] Ketones Ql (U) Negative Normal Negative, Trace [facility] Comment on above: Order Comment: Speci men Type: URINE SPECIMENOrdering Facility: [facility] Address: [address] [place] [address] Performed By: #### 2 4356-8 ####[facility] LABORATORYCLIA [id number] [address] [place] Leukocyte esterase Test strip Ql (U) Negative Normal Negative, 25 Melody/uL [facility] Comment on above: Order Comment: Speci men Type: URINE SPECIMENOrdering Facility: [facility] Address: [address] [place] [address] Performed By: #### 2 4356-8 ####[facility] [facility] LABORATORYCLIA [id number] [place] [address] [place] Nitrite Ql (U) Negative Normal Negative [facility] Comment on above: Order Comment: Speci men Type: URINE SPECIMENOrdering Facility: [facility] Address: [address] [place] [address] Performed By: #### 2 4356-8 ####[facility] LABORATORYCLIA [id number] [place] [id number] [place] pH (U) 6.5 [pH] Normal 5.0-8.0 [facility] Comment on above: Order Comment: Speci men Type: URINE SPECIMENOrdering Facility: [facility] Address: [address] [place] [address] Performed By: #### 2 4356-8 ####[facility] LABORATORYCLIA [id number] [place] [address] [place] Protein (U) [Mass/Vol] Trace Normal Trace , Negative [facility] Comment on above: Order Comment: Speci men Type: URINE SPECIMENOrdering Facility: [facility] Address: [address] [place] [address] Performed By: #### 2 4356-8 ####[facility] LABORATORYCLIA [id number] [place] [address] [place] RBC LM.HPF (Urine sed) [#/Area] 0-3 /HPF Normal 0-3 /HPF [facility] Comment on above: Order Comment: Speci men Type: URINE SPECIMENOrdering Facility: [facility] Address: [address] [place] [address] Performed By: #### 2 4356-8 ####[facility] LABORATORYCLIA [id number] [place] [id number] [place] Specific gravity (U) [Rel density] >1.050 High 1.005-1.03 0 [facility] [facility] Comment on above: Order Comment: Speci men Type: URINE SPECIMENOrdering Facility: [facility] Address: [address] [place] [address] Performed By: #### 2 4356-8 ####[facility] LABORATORYCLIA [id number] [place] [address] [place] Urobilinogen Ql (U) Normal Normal Normal [facility] Comment on above: Order Comment: Speci men Type: URINE SPECIMENOrdering Facility: [facility] Address: [address] [place] [address] Performed By: #### 2 4356-8 ####[facility]ORATORYCLIA [id number] [place] [address] [place] WBC LM.HPF (Urine sed) [#/Area] 0-5 /HPF Normal 0-5 /HPF [facility] Comment on above: Order Comment: Speci men Type: URINE SPECIMENOrdering Facility: [facility] Address: [address] [place] [address] Performed By: #### 2 4356-8 ####[facility]ORATORYCLIA [id number] [place] [address] [place] aPTT PPPon 11-06-2023 aPTT Coag (PPP) [Time] 25.4 s Normal 23.0-32.4 [facility] Comment on above: Order Comment: Speci men Type: BLOOD SPECIMENOrdering Facility: [facility] Address: [address] [place] [address] Performed By: #### 3 4528-0, 04269-1 ####[facility]ORATORYCLIA [id number] [place] [address] [place] Basophils Auto (Bld) [#/Vol] Ordered By: Ion Eckert on 10-28-2023 Basophils (Bld) [#/Vol] 0.0 10*3/uL 0.0-0.2 [facility] Basophils/100 WBC Auto (Bld) Ordered By: Ion Eckert on 10-28-2023 Basophils/100 WBC (Bld) 0.6 % . [facility] Blood Urea Nitrogenon 2023 Urea nitrogen [Mass/Vol] 11 mg/dL Normal 7-25 [facility] Comment on above: Performed By: #### L YTES, CREAT, CBC, BUN #### [facility] [address] Carbon dioxide, total [Moles /volume] in Serum or PlasmaOrdered By: Ion Eckert on 10-28-2023 CO2 [Moles/Vol] 31.8 mmol/L 21.0-31.0 [facility] Chloride [Moles/volume] in S jeevan or PlasmaOrdered By: Ion Eckert on 10-28-2023 Chloride [Moles/Vol] 104 mmol/L 98-107 [facility] Complete Blood Count Auto Di ffon 10-28-2023 Basophils (Bld) [#/Vol] 0.0 10*3/uL Normal 0.0-0.2 [facility] Comment on above: Result Comment: PERF ORMED BY: [place] [address] PATHOLOGIST GASOLINE ATTENDANT LYUDMILA GIANG M.D. Performed By: #### L YTES, CREAT, CBC, BUN #### [address] Basophils/100 WBC (Bld) 0.6 % Normal . [facility] Comment on above: Performed By: #### L YTES, CREAT, CBC, BUN #### [address] Eosinophils (Bld) [#/Vol] 0.4 10*3/uL Normal 0.0-0.45 [facility] Comment on above: Performed By: #### L YTES, CREAT, CBC, BUN #### [address] Eosinophils/100 WBC (Bld) 7.1 % Normal . [facility] Comment on above: Performed By: #### L YTES, CREAT, CBC, BUN #### [address] Erythrocyte distribution width (RBC) [Ratio] 14.9 % Normal 11.9-15.3 [facility] Comment on above: Performed By: #### L YTES, CREAT, CBC, BUN #### [address] Hematocrit (Bld) [Volume fraction] 31.9 % Low 34.0-46.4 [facility] Comment on above: Performed By: #### L YTES, CREAT, CBC, BUN #### [address] Hemoglobin (Bld) [Mass/Vol] 10.6 g/dL Low 11.8-15.4 [facility] Comment on above: Performed By: #### L YTES, CREAT, CBC, BUN #### [address] Lymphocytes (Bld) [#/Vol] 0.8 10*3/uL Low 1.00-4.8 [facility] Comment on above: Performed By: #### L YTES, CREAT, CBC, BUN #### [address] Lymphocytes/100 WBC (Bld) 13.6 % Normal . [facility] Comment on above: Performed By: #### L YTES, CREAT, CBC, BUN #### [address] MCH (RBC) [Entitic mass] 29.7 pg Normal 24.7-34.3 [facility] Comment on above: Performed By: #### L YTES, CREAT, CBC, BUN #### [address] MCV (RBC) [Entitic vol] 89.6 fL Normal 80-100 [facility] Comment on above: Performed By: #### L YTES, CREAT, CBC, BUN #### [address] Mean Corpuscular HGB Conc 33.2 g/dL Normal 32.0-35.0 [facility] Comment on above: Performed By: #### L YTES, CREAT, CBC, BUN #### [address] Monocytes (Bld) [#/Vol] 0.7 10*3/uL Normal 0.0-0.8 [facility] Comment on above: Performed By: #### L YTES, CREAT, CBC, BUN #### [address] Monocytes/100 WBC (Bld) 11.9 % Normal . [facility] Comment on above: Performed By: #### L YTES, CREAT, CBC, BUN #### [address] Neutrophils (Bld) [#/Vol] 3.8 10*3/uL Normal 1.8-7.7 [facility] Comment on above: Performed By: #### L YTES, CREAT, CBC, BUN #### [address] Neutrophils/100 WBC (Bld) 66.8 % Normal . [facility] Comment on above: Performed By: #### L YTES, CREAT, CBC, BUN #### [address] NRBC% 0.1 /100{WBC} Normal 0-0.5 [facility] Comment on above: Performed By: #### L YTES, CREAT, CBC, BUN #### [address] Platelet mean volume (Bld) [Entitic vol] 6.4 fL Normal 6.3-10.7 [facility] Comment on above: Performed By: #### L YTES, CREAT, CBC, BUN #### [address] Platelets (Bld) [#/Vol] 294 10*3/uL Normal 150-450 [facility] Comment on above: Performed By: #### L YTES, CREAT, CBC, BUN #### [address] RBC (Bld) [#/Vol] 3.56 10*6/uL Low 3.60-5.00 [facility] Comment on above: Performed By: #### L YTES, CREAT, CBC, BUN #### [address] WBC (Bld) [#/Vol] 5.6 10*3/uL Normal 3.8-11.6 [facility] Comment on above: Performed By: #### L YTES, CREAT, CBC, BUN #### [facility] [address] [place] [id number] [facility] Creatinineon 10-28-2023 Creatinine [Mass/Vol] 0.60 mg/dL Normal 0.60-1.20 [facility] Comment on above: Performed By: #### L YTES, CREAT, CBC, BUN #### [address] Creatinine Clr Calc Pharmacy 61.83 Normal [facility] Comment on above: Result Comment: PERF ORMED BY: [place] [address] PATHOLOGIST GASOLINE ATTENDANT LYUDMILA GIANG M.D. Performed By: #### L YTES, CREAT, CBC, BUN #### [address] GFR/1.73 sq M.predicted MDRD (S/P/Bld) [Vol rate/Area] mL/min/{1.73_m2} Normal [facility] Comment on above: Performed By: #### L YTES, CREAT, CBC, BUN #### [address] Creatinine [Mass/volume] in Serum or PlasmaOrdered By: Ion Eckert on 10-28-2023 Creatinine [Mass/Vol] 0.60 mg/dL 0.60-1.20 [facility] Electrolyteson 10-28-2023 Anion gap [Moles/Vol] 9.1 mmol/L Normal 6.0-15.0 [facility] Comment on above: Performed By: #### L YTES, CREAT, CBC, BUN #### [address] Chloride [Moles/Vol] 104 mmol/L Normal 98-107 [facility] Comment on above: Performed By: #### L YTES, CREAT, CBC, BUN #### [facility] [address] CO2 [Moles/Vol] 31.8 mmol/L High 21.0-31.0 [facility] Comment on above: Performed By: #### L YTES, CREAT, CBC, BUN #### [facility] [address] Potassium [Moles/Vol] 3.9 mmol/L Normal 3.5-5.1 [facility] Comment on above: Performed By: #### L YTES, CREAT, CBC, BUN #### [facility] [address] Sodium [Moles/Vol] 141 mmol/L Normal 136-145 [facility] Comment on above: Performed By: #### L YTES, CREAT, CBC, BUN #### [facility] [address] Eosinophils Auto (Bld) [#/Vo l]Ordered By: Ion Eckert on 10-28-2023 Eosinophils (Bld) [#/Vol] 0.4 10*3/uL 0.0-0.45 [facility] Eosinophils/100 WBC Auto (Bl d)Ordered By: Ion Eckert on 10-28-2023 Eosinophils/100 WBC (Bld) 7.1 % . [facility] Erythrocyte distribution wid th Auto (RBC) [Ratio]Ordered By: Ion Eckert on 10-28-2023 Erythrocyte distribution width (RBC) [Ratio] 14.9 % 11.9-15.3 [facility] Hematocrit Auto (Bld) [Volum e fraction]Ordered By: Ion Eckert on 10-28-2023 Hematocrit (Bld) [Volume fraction] 31.9 % 34.0-46.4 [facility] Hemoglobin [Mass/volume] in BloodOrdered By: Ion Eckert on 10-28-2023 Hemoglobin (Bld) [Mass/Vol] 10.6 g/dL 11.8-15.4 [facility] Leukocytes [#/volume] correc french for nucleated erythrocytes in Blood by Automated counOrdered By: Ion Eckert on 10-28-2023 WBC corrected for nucl RBC Auto (Bld) [#/Vol] 5.6 10*3/uL 3.8-11.6 [facility] Lymphocytes Auto (Bld) [#/Vo l]Ordered By: Ion Eckert on 10-28-2023 Lymphocytes (Bld) [#/Vol] 0.8 10*3/uL 1.00-4.8 [facility] Lymphocytes/100 WBC Auto (Bl d)Ordered By: Ion Eckert on 10-28-2023 Lymphocytes/100 WBC (Bld) 13.6 % . [facility] MCH Auto (RBC) [Entitic mass ]Ordered By: Ion Eckert on 10-28-2023 MCH (RBC) [Entitic mass] 29.7 pg 24.7-34.3 [facility] MCHC Auto (RBC) [Mass/Vol]Or dered By: Ion Eckert on 10-28-2023 MCHC (RBC) [Mass/Vol] 33.2 g/dL 32.0-35.0 [facility] MCV Auto (RBC) [Entitic vol] Ordered By: Ion Eckert on 10-28-2023 MCV (RBC) [Entitic vol] 89.6 fL 80-100 [facility] Monocytes Auto (Bld) [#/Vol] Ordered By: Ion Eckert on 10-28-2023 Monocytes (Bld) [#/Vol] 0.7 10*3/uL 0.0-0.8 [facility] Monocytes/100 WBC Auto (Bld) Ordered By: Ion Eckert on 10-28-2023 Monocytes/100 WBC (Bld) 11.9 % . [facility] Neutrophils Auto (Bld) [#/Vo l]Ordered By: Ion Eckert on 10-28-2023 Neutrophils (Bld) [#/Vol] 3.8 10*3/uL 1.8-7.7 [facility] Neutrophils/100 WBC Auto (Bl d)Ordered By: Ion Eckert on 10-28-2023 Neutrophils/100 WBC (Bld) 66.8 % . [facility] No Panel InformationOrdered By: Ion Eckert on 10-28-2023 Estimated GFR (CKD-EPI) > 60.0 mL/Min [facility] Creatinine Clearance (Chem 61.83 [facility] Nucleated erythrocytes [Pres ence] in Blood by Automated countOrdered By: Ion Eckert on 10-28-2023 Nucleated RBC Auto Ql (Bld) 0.1 /100{WBC} 0-0.5 [facility] Platelet mean volume Auto (B ld) [Entitic vol]Ordered By: Ion Eckert on 10-28-2023 Platelet mean volume (Bld) [Entitic vol] 6.4 fL 6.3-10.7 [facility] Platelets Auto (Bld) [#/Vol] Ordered By: Ion Eckert on 10-28-2023 Platelets (Bld) [#/Vol] 294 10*3/uL 150-450 [facility] Potassium [Moles/volume] in Serum or PlasmaOrdered By: Ion Eckert on 10-28-2023 Potassium [Moles/Vol] 3.9 mmol/L 3.5-5.1 [facility] RBC Auto (Bld) [#/Vol]Ordere d By: Ion Eckert on 10-28-2023 RBC (Bld) [#/Vol] 3.56 10*6/uL 3.60-5.00 [facility] Serum or plasma anion gap de terminationOrdered By: Ion Eckert on 10-28-2023 Anion gap [Moles/Vol] 9.1 mmol/L 6.0-15.0 [facility] Sodium [Moles/volume] in Ser um or PlasmaOrdered By: Ion Eckert on 10-28-2023 Sodium [Moles/Vol] 141 mmol/L 136-145 [facility] Urea nitrogen [Mass/volume] in Serum or PlasmaOrdered By: Ion Eckert on 10-28-2023 Urea nitrogen [Mass/Vol] 11 mg/dL 7-25 [facility] WBC Auto (Bld) [#/Vol]Ordere d By: Ion Eckert on 10-28-2023 WBC (Bld) [#/Vol] 5.6 10*3/uL 3.8-11.6 [facility] Blood Urea Nitrogenon 2023 Urea nitrogen [Mass/Vol] 23 mg/dL Normal 7-25 [facility] Comment on above: Performed By: #### B UN, CREAT LYTES, CBC #### [address] Complete Blood Count Auto Di ffon 10-27-2023 Basophils (Bld) [#/Vol] 0.0 10*3/uL Normal 0.0-0.2 [facility] Comment on above: Result Comment: PERF ORMED BY: [place] [address] PATHOLOGIST GASOLINE ATTENDANT LYUDMILA GIANG M.D. Performed By: #### B UN, CREAT, LYTES, CBC #### [address] Basophils/100 WBC (Bld) 0.4 % Normal . [facility] Comment on above: Performed By: #### B UN, CREAT, LYTES, CBC #### [address] Eosinophils (Bld) [#/Vol] 0.4 10*3/uL Normal 0.0-0.45 [facility] Comment on above: Performed By: #### B UN, CREAT, LYTES, CBC #### [address] Eosinophils/100 WBC (Bld) 5.6 % Normal . [facility] Comment on above: Performed By: #### B UN, CREAT, LYTES, CBC #### [address] Erythrocyte distribution width (RBC) [Ratio] 15.3 % Normal 11.9-15.3 [facility] Comment on above: Performed By: #### B UN, CREAT, LYTES, CBC #### [address] Hematocrit (Bld) [Volume fraction] 34.0 % Normal 34.0-46.4 [facility] Comment on above: Performed By: #### B GHULAM SINGER LYTES, CBC #### [address] Hemoglobin (Bld) [Mass/Vol] 11.4 g/dL Low 11.8-15.4 [facility] Comment on above: Performed By: #### B GHULAM SINGER LYTES, CBC #### [address] Lymphocytes (Bld) [#/Vol] 0.8 10*3/uL Low 1.00-4.8 [facility] Comment on above: Performed By: #### B GHULAM SINGER LYTES, CBC #### [address] Lymphocytes/100 WBC (Bld) 10.5 % Normal . [facility] Comment on above: Performed By: #### B GHULAM SINGER LYTES, CBC #### [address] MCH (RBC) [Entitic mass] 29.9 pg Normal 24.7-34.3 [facility] Comment on above: Performed By: #### B GHULAM SINGER LYTES, CBC #### [address] MCV (RBC) [Entitic vol] 89.6 fL Normal 80-100 [facility] Comment on above: Performed By: #### B GHULAM SINGER LYTES, CBC #### [address] Mean Corpuscular HGB Conc 33.4 g/dL Normal 32.0-35.0 [facility] Comment on above: Performed By: #### B GHULAM SINGER LYTES, CBC #### [address] Monocytes (Bld) [#/Vol] 0.9 10*3/uL High 0.0-0.8 [facility] Comment on above: Performed By: #### B GHULAM SINGER LYTES, CBC #### [address] Monocytes/100 WBC (Bld) 11.5 % Normal . [facility] Comment on above: Performed By: #### B UN, CREAT, LYTES, CBC #### [address] Neutrophils (Bld) [#/Vol] 5.7 10*3/uL Normal 1.8-7.7 [facility] Comment on above: Performed By: #### B UN, CREAT, LYTES, CBC #### [address] Neutrophils/100 WBC (Bld) 72.0 % Normal . [facility] Comment on above: Performed By: #### B UN, CREAT, LYTES, CBC #### [address] NRBC% 0.0 /100{WBC} Normal 0-0.5 [facility] Comment on above: Performed By: #### B UN, CREAT, LYTES, CBC #### [address] Platelet mean volume (Bld) [Entitic vol] 6.5 fL Normal 6.3-10.7 [facility] Comment on above: Performed By: #### B UN, CREAT, LYTES, CBC #### [place] [address] [place] Platelets (Bld) [#/Vol] 304 10*3/uL Normal 150-450 [facility] Comment on above: Performed By: #### B UN, CREAT, LYTES, CBC #### [place] [address] [place] RBC (Bld) [#/Vol] 3.80 10*6/uL Normal 3.60-5.00 [facility] Comment on above: Performed By: #### B UN, CREAT, LYTES, CBC #### [place] [address] [place] WBC (Bld) [#/Vol] 7.9 10*3/uL Normal 3.8-11.6 [facility] Comment on above: Performed By: #### B GHULAM SINGER LYTES, CBC #### [address] Creatinineon 10-27-2023 Creatinine [Mass/Vol] 0.65 mg/dL Normal 0.60-1.20 [facility] Comment on above: Performed By: #### C K, HS TROP #### [address] Creatinine Clr Calc Pharmacy 56.50 Normal [facility] Comment on above: Result Comment: PERF ORMED BY: [place] [address] PATHOLOGIST GASOLINE ATTENDANT LYUDMILA GIANG M.D. Performed By: #### C K, HS TROP #### [address] GFR/1.73 sq M.predicted MDRD (S/P/Bld) [Vol rate/Area] mL/min/{1.73_m2} Normal [facility] Comment on above: Performed By: #### C K, HS TROP #### [address] Electrolyteson 10-27-2023 Anion gap [Moles/Vol] 14.6 mmol/L Normal 6.0-15.[address] [facility] Comment on above: Performed By: #### B GHULAM SINGER LYTES, CBC #### [address] Chloride [Moles/Vol] 102 mmol/L Normal 98-107 [facility] Comment on above: Performed By: #### B GHULAM SINGER LYTES, CBC #### [address] CO2 [Moles/Vol] 27.1 mmol/L Normal 21.0-31.0 [facility] Comment on above: Performed By: #### B GHULAM SINGER LYTES, CBC #### [facility] [address] [place] [address] [place] Potassium [Moles/Vol] 3.7 mmol/L Normal 3.5-5.1 [facility] Comment on above: Performed By: #### B UN, CREAT LYTES, CBC #### [facility] [address] [place] [address] [place] Sodium [Moles/Vol] 140 mmol/L Normal 136-145 [facility] Comment on above: Performed By: #### B UN, CREAT LYTES, CBC #### [facility] [address] [place] [address] [place] Glucose Glucometer (BldC) [M ass/Vol]Ordered By: Jm Trujillo on 10-27-2023 Glucose [Mass/Vol] 71 mg/dL [facility] Comment on above: Random Glucose Refer ence Range is dependent on time and content of last meal. Glucose of more than 200 mg/dL in a nonstressed, ambulatory subject supports the diagnosis of Diabetes Mellitus. Glucose Poct Glucometerson 0 10-27-2023 Glucose [Mass/Vol] 71 mg/dL Normal [facility] Comment on above: Result Comment: [employer] Glucose Reference Range is dependent on time and content of last meal. Glucose of more than 200 mg/dL in a nonstressed, ambulatory subject supports the diagnosis of Diabetes Mellitus. PERFORMED BY: [place] [address] PATHOLOGIST GASOLINE ATTENDANT LYUDMILA GIANG M.D. Performed By: #### G LULS #### Point of Care testing , Basic Metabolic Panelon - Anion gap [Moles/Vol] 11.4 mmol/L Normal 6.0-15.0 [facility] Comment on above: Performed By: #### C K, HS TROP #### [facility] [address] [place] [address] [place] Calcium [Mass/Vol] 9.3 mg/dL Normal 8.6-10.3 [facility] Comment on above: Performed By: #### C K, HS TROP #### [facility] [address] [place] [address] [place] Chloride [Moles/Vol] 102 mmol/L Normal 98-107 [facility] Comment on above: Performed By: #### C K, HS TROP #### [facility] [address] [place] [id number] [place] CO2 [Moles/Vol] 29.4 mmol/L Normal 21.0-31.0 [facility] Comment on above: Performed By: #### C K, HS TROP #### [facility] [address] [place] [address] [place] Creatinine [Mass/Vol] 0.85 mg/dL Normal 0.60-1.20 [facility] Comment on above: Performed By: #### C K, HS TROP #### [facility] [address] [place] [address] [place] Creatinine Clr Calc Pharmacy 53.18 Normal [facility] Comment on above: Performed By: #### C K, HS TROP #### [facility] [address] [place] [address] [place] GFR/1.73 sq M.predicted MDRD (S/P/Bld) [Vol rate/Area] mL/min/{1.73_m2} Normal [facility] Comment on above: Performed By: #### C K, HS TROP #### [place] [address] [place] Glucose [Mass/Vol] 105 mg/dL High 70-100 [facility] Comment on above: Result Comment: [employer] Glucose Reference Range is dependent on time and content of last meal. Glucose of more than 200 mg/dL in a nonstressed, ambulatory subject supports the diagnosis of Diabetes Mellitus. ADA recommended reference range Performed By: #### C K, HS TROP #### [facility] [address] [place] [address] [place] Potassium [Moles/Vol] 4.8 mmol/L Normal 3.5-5.1 [facility] Comment on above: Performed By: #### C K, HS TROP #### [facility] [address] [place] [address] [place] Sodium [Moles/Vol] 138 mmol/L Normal 136-145 [facility] Comment on above: Performed By: #### C K, HS TROP #### [address] Urea nitrogen [Mass/Vol] 19 mg/dL Normal 7-25 [facility] Comment on above: Performed By: #### C K, HS TROP #### [address] Blood Cultureon 10-26-2023 Bacteria identified Cx Nom (Bld) NO GROWTH 5 DAYS PERFORMED BY: [place] [address] PATHOLOGIST GASOLINE ATTENDANT LYUDMILA GIANG M.D. Normal [facility] Comment on above: Performed By: #### C K, HS TROP #### [address] Bacteria identified Cx Nom (Bld) NO GROWTH 5 DAYS PERFORMED BY: [place] [address] PATHOLOGIST GASOLINE ATTENDANT LYUDMILA GIANG M.D. Normal [facility] Comment on above: Performed By: #### C K, HS TROP #### [address] angio chest PE protocolon 10-26-2023 CT angio chest PE protocol [facility] Main [place] [address] [place] [address] CT Scan Report Signed Patient: Evan Gill MR#: [id number] 89 : 1955 Acct:[id number] Age/Sex: 68 / F ADM Date: 10/26/23 Loc: Room: [address] [place] [address] Type: ADM IN Attending Dr: Patrice Hooks MD Copies to: MD Mary Peng MD Ordering Provider: Mary Al MD Date of Service: 10/25/23 CT/CT abdomen pelvis w con: ileostomy, concern for sbo ([id number]) CT/CT angio chest PE protocol: tachy, elevated dimer, hx cancer, r/o pe CLINICAL DATA: Increased abdominal pain and decreased ileostomy output. Tachycardia and elevated d- dimer. CT PULMONARY ANGIOGRAM WITH CONTRAST COMPARISON: 04/05/2023 TECHNIQUE: Spiral images were obtained through the chest following intravenous administration of 90 mL of Isovue-370. Images were reviewed using both narrow and wide window settings. Sagittal, coronal and 3 D volume-rendered reconstructions were performed and reviewed. This CT exam was performed using one or more following dose reduction techniques: Automated exposure control, adjustment of the mA and/or kV according to patient size, or use of iterative reconstruction technique. FINDINGS: The heart is top normal in size. There is no pericardial effusion. No aortic aneurysm or dissection is seen. Mild plaque is present at the aortic arch. There is adequate opacification of the pulmonary arteries. No emboli are identified. No pathologic lymphadenopathy is seen. There is a tiny hiatal hernia. There is subtle dextroscoliotic curvature and mild endplate spurring at the spine. Atelectasis, scarring and subpleural lines are again noted. There is no consolidation, effusion or or pneumothorax. CT/CT abdomen pelvis w con IMPRESSION: NO CT EVIDENCE OF PULMONARY EMBOLISM. CHRONIC PARENCHYMAL CHANGES. CT ABDOMEN AND PELVIS WITH CONTRAST COMPARISON: 09/30/2023 Spiral images were obtained through the abdomen and pelvis following 90 mL Isovue-300. This CT exam was performed using one or more following dose reduction techniques: Automated exposure control, adjustment of the mA and/or kV according to patient size, or use of iterative reconstruction technique. The gallbladder is surgically absent. There is mild biliary prominence, without common duct stones. No intrahepatic masses are identified. The spleen is unremarkable. The pancreas is atrophic. No adrenal nodularity is identified. There are symmetric renal nephrograms, without hydronephrosis. The abdominal aorta is normal caliber. No enlarged lymph nodes or ascites are seen. The stomach is again mildly distended with fluid. There are also continued mildly distended fluid containing small bowel loops. No wall thickening is noted. The colon is mostly decompressed. There are mild degenerative changes at the spine. There is lumbosacral spondylolisthesis due to L5 spondylolysis. Images through the pelvis show a right lower quadrant ileostomy. There is again noted to be fecalization of the small bowel leading into the ostomy. The remaining small bowel loops are also borderline distended with fluid. The distal colon is decompressed. There is a rectal anastomosis. No diverticular disease is identified. There are no adnexal cysts. The bladder is within normal limits. There is minor presacral edema and it trace amount of dependent free pelvic fluid. IMPRESSION: BILIARY DILATATION THAT IS PROBABLY SECONDARY TO PREVIOUS CHOLECYSTECTOMY. NO OBSTRUCTIVE UROPATHY. CONTINUED DISTENDED FLUID CONTAINING SMALL BOWEL LOOPS WITH FECALIZATION EXTENDING INTO PATIENT'S ILEOSTOMY. Impression dictated by: Princess Sanchez M.D.10/26/2023 7:37 AM Dictation Location: [place] [address] Transcribed By: [facility] 10/26/23 0737 Dictated By: Princess Sanchez MD 10/26/23 0723 Signed By: 10/26/2337 Normal [facility] Calcium [Mass/volume] in Ser um or PlasmaOrdered By: Ethel Saucedo on 10-26-2023 Calcium [Mass/Vol] 9.3 mg/dL 8.6-10.3 [facility] Complete Blood Count Auto Di ffon 10-26-2023 Basophils (Bld) [#/Vol] 0.1 10*3/uL Normal 0.0-0.2 [facility] Comment on above: Result Comment: PERF ORMED BY: [place] [address] PATHOLOGIST GASOLINE ATTENDANT LYUDMILA GIANG M.D. Performed By: #### C K, HS TROP #### [place] [address] [place] Basophils/100 WBC (Bld) 0.8 % Normal . [facility] Comment on above: Performed By: #### C K, HS TROP #### [facility] [address] [place] [address] [place] Eosinophils (Bld) [#/Vol] 0.1 10*3/uL Normal 0.0-0.45 [facility] Comment on above: Performed By: #### C K, HS TROP #### [facility] [address] [place] [address] [place] Eosinophils/100 WBC (Bld) 0.9 % Normal . [facility] Comment on above: Performed By: #### C K, HS TROP #### [address] Erythrocyte distribution width (RBC) [Ratio] 15.7 % High 11.9-15.3 [facility] Comment on above: Performed By: #### C K, HS TROP #### [address] Hematocrit (Bld) [Volume fraction] 37.2 % Normal 34.0-46.4 [facility] Comment on above: Performed By: #### C K, HS TROP #### [address] Hemoglobin (Bld) [Mass/Vol] 12.6 g/dL Normal 11.8-15.4 [facility] Comment on above: Performed By: #### C K, HS TROP #### [address] Lymphocytes (Bld) [#/Vol] 0.9 10*3/uL Low 1.00-4.8 [facility] Comment on above: Performed By: #### C K, HS TROP #### [address] Lymphocytes/100 WBC (Bld) 8.5 % Normal . [facility] Comment on above: Performed By: #### C K, HS TROP #### [address] MCH (RBC) [Entitic mass] 30.1 pg Normal 24.7-34.3 [facility] Comment on above: Performed By: #### C K, HS TROP #### [address] MCV (RBC) [Entitic vol] 88.6 fL Normal 80-100 [facility] Comment on above: Performed By: #### C K, HS TROP #### [address] Mean Corpuscular HGB Conc 33.9 g/dL Normal 32.0-35.0 [facility] Comment on above: Performed By: #### C K, HS TROP #### [facility] [address] [place] [address] [place] Monocytes (Bld) [#/Vol] 1.0 10*3/uL High 0.0-0.8 [facility] Comment on above: Performed By: #### C K, HS TROP #### [facility] [address] [place] [address] [place] Monocytes/100 WBC (Bld) 9.5 % Normal . [facility] Comment on above: Performed By: #### C K, HS TROP #### [facility] [address] [place] [address] [place] Neutrophils (Bld) [#/Vol] 8.5 10*3/uL High 1.8-7.7 [facility] Comment on above: Performed By: #### C K, HS TROP #### [facility] [address] [place] [address] [place] Neutrophils/100 WBC (Bld) 80.3 % Normal . [facility] Comment on above: Performed By: #### C K, HS TROP #### [facility] [address] [place] [address] [place] NRBC% 0.0 /100{WBC} Normal 0-0.5 [facility] Comment on above: Performed By: #### C K, HS TROP #### [facility] [address] [place] [address] [place] Platelet mean volume (Bld) [Entitic vol] 6.3 fL Normal 6.3-10.7 [facility] Comment on above: Performed By: #### C K, HS TROP #### [facility] [address] [place] [id number] [place] Platelets (Bld) [#/Vol] 343 10*3/uL Normal 150-450 [facility] Comment on above: Performed By: #### C K, HS TROP #### [facility] [address] [place] [address] [place] RBC (Bld) [#/Vol] 4.19 10*6/uL Normal 3.60-5.00 [facility] Comment on above: Performed By: #### C K, HS TROP #### [facility] [address] [place] [id number] [place] WBC (Bld) [#/Vol] 10.6 10*3/uL Normal 3.8-11.6 [facility] Comment on above: Performed By: #### C K, HS TROP #### [facility] [address] [place] [id number] [place] Dipstick and Microscopicon 0 10-26-2023 Appearance (U) Clear Normal Clear [facility] Comment on above: Order Comment: Name Collection Type:: Clean-Voided Midstream Performed By: #### C K, HS TROP #### [place] [id number] [place] Bacteria,Urine None Seen Normal None Seen [facility] Comment on above: Order Comment: Name Collection Type:: Clean-Voided Midstream Performed By: #### C K, HS TROP #### [place] [address] [place] Bilirubin,Urine Negative Normal Negative [facility] Comment on above: Order Comment: Name Collection Type:: Clean-Voided Midstream Performed By: #### C K, HS TROP #### [place] [id number] [place] Color (U) Yellow Normal Yellow [facility] Comment on above: Order Comment: Name Collection Type:: Clean-Voided Midstream Performed By: #### C K, HS TROP #### [place] [id number] [place] Glucose Ql (U) Normal Normal Normal [facility] Comment on above: Order Comment: Name Collection Type:: Clean-Voided Midstream Performed By: #### C K, HS TROP #### [place] [id number] [place] Hyaline Casts,Urine None Seen Normal 0-8 [facility] Comment on above: Order Comment: Name Collection Type:: Clean-Voided Midstream Result Comment: PERF ORMED BY: [place] [address] PATHOLOGIST GASOLINE ATTENDANT LYUDMILA GIANG M.D. Performed By: #### C K, HS TROP #### [address] Ketones Ql (U) Negative Normal Negative [facility] Comment on above: Order Comment: Name Collection Type:: Clean-Voided Midstream Performed By: #### C K, HS TROP #### [place] [address] [place] Leukocyte esterase Test strip Ql (U) 2+ High Negative [facility] Comment on above: Order Comment: Name Collection Type:: Clean-Voided Midstream Performed By: #### C K, HS TROP #### [place] [address] [place] Nitrite,Urine Negative Normal Negative [facility] Comment on above: Order Comment: Name Collection Type:: Clean-Voided Midstream Performed By: #### C K, HS TROP #### [place] [address] [place] Occult Blood,Urine Trace High Negative [facility] [place] [facility] Comment on above: Order Comment: Name Collection Type:: Clean-Voided Midstream Result Comment: PERF ORMED BY: [place] [address] PATHOLOGIST GASOLINE ATTENDANT LYUDMILA GIANG M.D. Performed By: #### C K, HS TROP #### [place] [id number] [place] pH (U) 5.5 [pH] Normal 5.0-9.0 [facility] Comment on above: Order Comment: Name Collection Type:: Clean-Voided Midstream Performed By: #### C K, HS TROP #### [place] [address] [place] Protein,Urine Negative Normal Negative [facility] Comment on above: Order Comment: Name Collection Type:: Clean-Voided Midstream Performed By: #### C K, HS TROP #### [address] [place] [address] [place] RBC LM.HPF (Urine sed) [#/Area] 0 /[HPF] Normal 0-4 [facility] Comment on above: Order Comment: Name Collection Type:: Clean-Voided Midstream Performed By: #### C K, HS TROP #### [facility] [address] Specificy [place],Urine 1.037 High 1.001-1.03 0 [facility] Comment on above: Order Comment: Name Collection Type:: Clean-Voided Midstream Performed By: #### C K, HS TROP #### [facility] [address] Squamous Epithelial Cell,Urine 0-1 Normal 0-2 [facility] Comment on above: Order Comment: Name Collection Type:: Clean-Voided Midstream Performed By: #### C K, HS TROP #### [address] Urobilinogen,Urine Normal Normal Normal [facility] [place] [facility] Comment on above: Order Comment: Name Collection Type:: Clean-Voided Midstream Performed By: #### C K, HS TROP #### [place] [address] [place] WBC,Urine 10-19 High 0-4 [facility] Comment on above: Order Comment: Name Collection Type:: Clean-Voided Midstream Performed By: #### C K, HS TROP #### [address] Glucose [Mass/volume] in Ser um or PlasmaOrdered By: Ethel Saucedo on 10-26-2023 Glucose [Mass/Vol] 105 mg/dL 70-100 [facility] Comment on above: ADA recommended refe rence rangeRandom Glucose Reference Range is dependent on time and content of last meal. Glucose of more than 200 mg/dL in a nonstressed, ambulatory subject supports the diagnosis of Diabetes Mellitus. Magnesiumon 10-26-2023 Magnesium [Mass/Vol] 2.0 mg/dL Normal 1.9-2.7 [facility] Comment on above: Result Comment: PERF ORMED BY: [place] [address] PATHOLOGIST GASOLINE ATTENDANT LYUDMILA GIANG M.D. Performed By: #### C K, HS TROP #### [address] Magnesium [Mass/volume] in S jeevan or PlasmaOrdered By: Ethel Saucedo on 10-26-2023 Magnesium [Mass/Vol] 2.0 mg/dL 1.9-2.7 [facility] Troponin I High Sensitivityo n 10-26-2023 Troponin I High Sensitivity 4.9 pg/mL Normal 0.0-15.0 [facility] Comment on above: Result Comment: PERF ORMED BY: [place] [address] PATHOLOGIST GASOLINE ATTENDANT LYUDMILA GIANG M.D. Performed By: #### L YTES, CREAT, CBC, BUN #### [facility] [address] [place] [address] Urine Cultureon 10-26-2023 Bacteria identified Cx Nom (U) 25,000 colonies/ml mixed bacterial skin contaminants 2 Days PERFORMED BY: [place] [address] PATHOLOGIST GASOLINE ATTENDANT LYUDMILA GIANG M.D. Normal [facility] Comment on above: Performed By: #### C K, HS TROP #### [address] XR KUBon 10-26-2023 XR KUB [facility] [place] [address] XRay Report Signed Patient: Evan Gill MR#: [id number] 89 : 1955 Acct:[id number] Age/Sex: 68 / F ADM Date: 10/26/23 Loc: Room: [address] [place] [address] Type: ADM IN Attending Dr: Jm Trujillo DO Copies to: DO Ghassan Gutierres Jr, MD Ordering Provider: Ghassan Gomez Jr, MD Date of Service: 10/26/23 XR/XR KUB: Arrhythmia/Palpitations PORTABLE KUB: Clinical data: NG tube placement COMPARISON: CT 10/25/2023 Supine view of the abdomen and chest shows an NG tube extending into the stomach. The side-port is just beyond the GE junction. Patient has a left-sided [id number]-[id number] catheter. There is air within mildly distended small bowel loops within the central and left abdomen. There is contrast within nondistended renal collecting systems from recent CT. XR/XR KUB IMPRESSION: NG TUBE WITHIN THE STOMACH. Impression dictated by: Princess Sanchez M.D.10/26/2023 9:29 AM Dictation Location: [place] [address] Transcribed By: [place] 10/26/23928 Dictated By: Princess Sanchez MD 10/26/23927 Signed By: 10/26/23928 Normal [facility] Activated partial thrombopla stin time (aPTT) in platelet poor plasma by coagulation aOrdered By: Mary Al on 10-25-2023 aPTT Coag (PPP) [Time] 25.0 s 25.1-36.5 [facility] Comment on above: A hematocrit value g reater than 55% may lead to inaccurate results in coagulation testing. Patients having hematocrit values >55% require a special collection tube for coagulation studies. Please contact the laboratory at [phone] for redraw instructions. Alanine aminotransferase [En zymatic activity/volume] in Serum or PlasmaOrdered By: Mary Al on 10-25-2023 ALT [Catalytic activity/Vol] 36 U/L 7-52 [facility] Albumin [Mass/volume] in Ser um or Plasma by Bromocresol green (BCG) dye binding methoOrdered By: Mary Al on 10-25-2023 Albumin BCG dye [Mass/Vol] 4.4 g/dL 3.5-5.7 [facility] Alkaline phosphatase [Enzyma tic activity/volume] in Serum or PlasmaOrdered By: Mary Al on 10-25-2023 ALP [Catalytic activity/Vol] 79 U/L 34-104 [facility] Aspartate aminotransferase [ Enzymatic activity/volume] in Serum or PlasmaOrdered By: Mary Al on 10-25-2023 AST [Catalytic activity/Vol] 52 U/L 13-39 [facility] Automated erythrocytes count in urine sediment (number/area)Ordered By: Mary Al on 10-25-2023 RBC Auto (Urine sed) [#/Area] 0-1 [HPF] 0-4 [facility] Automated leukocytes count i n urine sediment (number/area)Ordered By: Mary Al on 10-25-2023 WBC Auto (Urine sed) [#/Area] 10-19 [HPF] 0-4 [facility] B-Type Natriuretic Peptideon 10-25-2023 Natriuretic peptide B (Bld) [Mass/Vol] 42.0 pg/mL Normal 5-100 [facility] Comment on above: Result Comment: PERF ORMED BY: [place] [address] PATHOLOGIST GASOLINE ATTENDANT LYUDMILA GIANG M.D. Performed By: #### L YTES, CREAT, CBC, BUN #### [address] Basic Metabolic Panelon 10-08 Anion gap [Moles/Vol] 15.1 mmol/L High 6.0-15.[address] [facility] Comment on above: Performed By: #### L YTES, CREAT, CBC, BUN #### [place] [address] [place] Calcium [Mass/Vol] 9.9 mg/dL Normal 8.6-10.3 [facility] [place] [facility] Comment on above: Performed By: #### L YTES, CREAT, CBC, BUN #### [place] [address] [place] Chloride [Moles/Vol] 100 mmol/L Normal 98-107 [facility] Comment on above: Performed By: #### L YTES, CREAT, CBC, BUN #### [place] [address] [place] CO2 [Moles/Vol] 21.9 mmol/L Normal 21.0-31.0 [facility] Comment on above: Performed By: #### L YTES, CREAT, CBC, BUN #### [facility] [address] Creatinine [Mass/Vol] 0.67 mg/dL Normal 0.60-1.20 [facility] Comment on above: Performed By: #### L YTES, CREAT, CBC, BUN #### [facility] [address] [place] [address] [place] Creatinine Clr Calc Pharmacy 61.55 Normal [facility] Comment on above: Result Comment: PERF ORMED BY: [place] [address] PATHOLOGIST GASOLINE ATTENDANT LYUDMILA GIANG M.D. Performed By: #### L YTES, CREAT, CBC, BUN #### [place] [address] [place] GFR/1.73 sq M.predicted MDRD (S/P/Bld) [Vol rate/Area] mL/min/{1.73_m2} Normal [facility] Comment on above: Performed By: #### L YTES, CREAT, CBC, BUN #### [address] Glucose [Mass/Vol] 132 mg/dL High 70-100 [facility] [place] [facility] Comment on above: Result Comment: [facility] Glucose Reference Range is dependent on time and content of last meal. Glucose of more than 200 mg/dL in a nonstressed, ambulatory subject supports the diagnosis of Diabetes Mellitus. ADA recommended reference range Performed By: #### L YTES, CREAT, CBC, BUN #### [address] Potassium [Moles/Vol] 4.0 mmol/L Normal 3.5-5.1 [facility] Comment on above: Performed By: #### L YTES, CREAT, CBC, BUN #### [address] Sodium [Moles/Vol] 133 mmol/L Significant change down 136-145 [facility] Comment on above: Performed By: #### L YTES, CREAT, CBC, BUN #### [facility] [address] [place] [address] [place] Urea nitrogen [Mass/Vol] 20 mg/dL Normal 7-25 [facility] Comment on above: Performed By: #### L YTES, CREAT, CBC, BUN #### [facility] [address] [place] [id number] [facility] Basophils Auto (Bld) [#/Vol] Ordered By: Mary Al on 10-25-2023 Basophils (Bld) [#/Vol] 0.1 10*3/uL 0.0-0.2 [facility] Basophils/100 WBC Auto (Bld) Ordered By: Mary Al on 10-25-2023 Basophils/100 WBC (Bld) 0.7 % . [facility] Bilirubin Test strip Ql (U)O rdered By: Mary Al on 10-25-2023 Bilirubin Ql (U) Negative Negative [facility] Bilirubin.direct [Mass/volum e] in Serum or PlasmaOrdered By: Mary Al on 10-25-2023 Bilirubin.direct [Mass/Vol] 0.20 mg/dL 0.03-0.18 [facility] Bilirubin.total [Mass/volume ] in Serum or PlasmaOrdered By: Mary Al on 10-25-2023 Bilirubin [Mass/Vol] 1.0 mg/dL 0.3-1.0 [facility] CNPNon 10-25-2023 CNPN Normal [facility] Calcium [Mass/volume] in Ser um or PlasmaOrdered By: Mary Al on 10-25-2023 Calcium [Mass/Vol] 9.9 mg/dL 8.6-10.3 [facility] Carbon dioxide, total [Moles /volume] in Serum or PlasmaOrdered By: Mary Al on 10-25-2023 CO2 [Moles/Vol] 21.9 mmol/L 21.0-31.0 [facility] Chloride [Moles/volume] in S jeevan or PlasmaOrdered By: Mary Al on 10-25-2023 Chloride [Moles/Vol] 100 mmol/L 98-107 [facility] Color Auto (U)Ordered By: Nunu Al on 10-25-2023 Color (U) Yellow Yellow [facility] Complete Blood Count Auto Di ffon 10-25-2023 Basophils (Bld) [#/Vol] 0.1 10*3/uL Normal 0.0-0.2 [facility] Comment on above: Result Comment: PERF ORMED BY: [place] [address] PATHOLOGIST GASOLINE ATTENDANT LYUDMILA GIANG M.D. Performed By: #### L YTES, CREAT, CBC, BUN #### [address] Basophils/100 WBC (Bld) 0.7 % Normal . [facility] Comment on above: Performed By: #### L YTES, CREAT, CBC, BUN #### [address] Eosinophils (Bld) [#/Vol] 0.3 10*3/uL Normal 0.0-0.45 [facility] Comment on above: Performed By: #### L YTES, CREAT, CBC, BUN #### [address] Eosinophils/100 WBC (Bld) 2.2 % Normal . [facility] Comment on above: Performed By: #### L YTES, CREAT, CBC, BUN #### [address] Erythrocyte distribution width (RBC) [Ratio] 15.5 % High 11.9-15.3 [facility] Comment on above: Performed By: #### L YTES, CREAT, CBC, BUN #### [address] Hematocrit (Bld) [Volume fraction] 38.4 % Normal 34.0-46.4 [facility] Comment on above: Performed By: #### L YTES, CREAT, CBC, BUN #### [address] Hemoglobin (Bld) [Mass/Vol] 12.9 g/dL Normal 11.8-15.4 [facility] Comment on above: Performed By: #### L YTES, CREAT, CBC, BUN #### [address] Lymphocytes (Bld) [#/Vol] 2.2 10*3/uL Normal 1.00-4.8 [facility] Comment on above: Performed By: #### L YTES, CREAT, CBC, BUN #### [address] Lymphocytes/100 WBC (Bld) 14.9 % Normal . [facility] Comment on above: Performed By: #### L YTES, CREAT, CBC, BUN #### [address] MCH (RBC) [Entitic mass] 29.3 pg Normal 24.7-34.3 [facility] Comment on above: Performed By: #### L YTES, CREAT, CBC, BUN #### [address] MCV (RBC) [Entitic vol] 87.5 fL Normal 80-100 [facility] Comment on above: Performed By: #### L YTES, CREAT, CBC, BUN #### [address] Mean Corpuscular HGB Conc 33.5 g/dL Normal 32.0-35.0 [facility] Comment on above: Performed By: #### L YTES, CREAT, CBC, BUN #### [address] Monocytes (Bld) [#/Vol] 1.0 10*3/uL High 0.0-0.8 [facility] Comment on above: Performed By: #### L YTES, CREAT, CBC, BUN #### [address] Monocytes/100 WBC (Bld) 18.93 % Normal 0.00-20.00 [facility] Comment on above: Performed By: #### L YTES, CREAT, CBC, BUN #### [address] Monocytes/100 WBC (Bld) 6.7 % Normal . [facility] Comment on above: Performed By: #### L YTES, CREAT, CBC, BUN #### [address] Neutrophils (Bld) [#/Vol] 10.9 10*3/uL High 1.8-7.7 [facility] Comment on above: Performed By: #### L YTES, CREAT, CBC, BUN #### [address] Neutrophils/100 WBC (Bld) 75.5 % Normal . [facility] Comment on above: Performed By: #### L YTES, CREAT, CBC, BUN #### [address] NRBC% 0.0 /100{WBC} Normal 0-0.5 [facility] Comment on above: Performed By: #### L YTES, CREAT, CBC, BUN #### [address] Platelet mean volume (Bld) [Entitic vol] 6.4 fL Normal 6.3-10.7 [facility] Comment on above: Performed By: #### L YTES, CREAT, CBC, BUN #### [place] [address] [place] Platelets (Bld) [#/Vol] 397 10*3/uL Normal 150-450 [facility] Comment on above: Performed By: #### L YTES, CREAT, CBC, BUN #### [place] [address] [place] RBC (Bld) [#/Vol] 4.39 10*6/uL Normal 3.60-5.00 [facility] Comment on above: Performed By: #### L YTES, CREAT, CBC, BUN #### [place] [address] [place] WBC (Bld) [#/Vol] 14.4 10*3/uL High 3.8-11.6 [facility] Comment on above: Performed By: #### L GHULAM AGUIRRE, CBC, BUN #### [facility] [address] [place] [address] [place] Creatine Kinaseon 10-25-2023 CK [Catalytic activity/Vol] 128 U/L Normal 30-223 [facility] Comment on above: Performed By: #### L GHULAM AGUIRRE, CBC, BUN #### [facility] [address] [place] [address] [facility] Creatine kinase [Enzymatic a ctivity/volume] in Serum or PlasmaOrdered By: Mary Al on 10-25-2023 CK [Catalytic activity/Vol] 128 U/L 30-223 [facility] Creatinine [Mass/volume] in Serum or PlasmaOrdered By: Mary Al on 10-25-2023 Creatinine [Mass/Vol] 0.67 mg/dL 0.60-1.20 [facility] D-Dimer High Sensitivityon 0 10-25-2023 D-Dimer High Sensitivity 312 ng/mL High 0-243 [facility] Comment on above: Result Comment: The reference range for D-dimer is <243 ng/mL D-dimer units. D-dimer results must be used in conjunction with a clinical pretest probability (PTP) assessment model for deep vein thrombosis (DVT) and pulmonary embolism (PE). Results <230 ng/mL d-dimer units can be used as a negative predictor in patients with low or moderate probability for DVT/PE. Results above the exclusion threshold of 230 ng/ml D-dimer units for DVT/PE may indicate the need for further diagnostic testing. D-Dimer can be increased in hospitalized patients due to co-morbid conditions. A hematocrit value greater than 55% may lead to inaccurate results in coagulation testing. Patients having hematocrit values >55% require a special collection tube for coagulation studies. Please contact the laboratory at [phone] for redraw instructions. PERFORMED BY: [facility] [address] [place] [address] PATHOLOGIST GASOLINE ATTENDANT LYUDMILA GIANG M.D. Performed By: #### L YTES, CREAT, CBC, BUN #### [facility] [address] [place] [address] [place] ECG 12 lead ECGon 10-25-2023 ECG 12 lead ECG [facility] Main [place] [address] [place] [address] Electrocardiograph Report Signed Patient: Evan Gill MR#: [id number] [birth year] : 1955 Acct:[id number] Age/Sex: 68 / F ADM Date: 10/26/23 Loc: Room: [address] [place] [address] Type: ADM IN Attending Dr: Jm Trujillo DO Ordering Provider: Mary Al MD Date of Service: 10/25/23 ECG/ECG 12 lead ECG: Abdominal Pain Copies to: Test Reason : Blood Pressure : 142/073 mmHG Vent. Rate : 102 BPM Atrial Rate : 102 BPM P-R Int : 160 ms QRS Dur : 082 ms QT Int : 332 ms P-R-T Axes : [phone] degrees QTc Int : 432 ms Sinus tachycardia with premature atrial complexes Otherwise normal ECG When compared with ECG of 06-APR-2023 10:14, premature atrial complexes are now present Nonspecific T wave abnormality is now present Inferior leads Confirmed by GHASSAN GOMEZ MD ([id number]) on 10/27/2023 4:27:48 AM Referred By: Electronically Signed By:GHASSAN GOMEZ MD Transcribed By: MUS Signed By Ghassan Gomez Jr, MD [id number] Normal [facility] Eosinophils Auto (Bld) [#/Vo l]Ordered By: Mary Al on 10-25-2023 Eosinophils (Bld) [#/Vol] 0.3 10*3/uL 0.0-0.45 [facility] Eosinophils/100 WBC Auto (Bl d)Ordered By: Mary Al on 10-25-2023 Eosinophils/100 WBC (Bld) 2.2 % . [facility] Erythrocyte distribution wid th Auto (RBC) [Ratio]Ordered By: Mary Al on 10-25-2023 Erythrocyte distribution width (RBC) [Ratio] 15.5 % 11.9-15.3 [facility] Fibrin D-dimer [Presence] in Platelet poor plasma by Latex agglutinationOrdered By: Mary Al on 10-25-2023 Fibrin D-dimer LA Ql (PPP) 312 ng/mL 0-243 [facility] Comment on above: The reference range for D-dimer is <243 ng/mL D-dimer units.D-dimer results must be used in conjunction with a clinicalpretest probability (PTP) assessment model for deep veinthrombosis (DVT) and pulmonary embolism (PE). Results <230ng/mL d-dimer units can be used as a negative predictor inpatients with low or moderate probability for DVT/PE.Results above the exclusion threshold of 230 ng/ml D-dimerunits for DVT/PE may indicate the need for furtherdiagnostic testing.D-Dimer can be increased in hospitalized patients due toco-morbid conditions.A hematocrit value greater than 55% may lead to inaccurate results in coagulation testing. Patients having hematocrit values >55% require a special collection tube for coagulation studies. Please contact the laboratory at [phone] for redraw instructions. Globulin Calc (S) [Mass/Vol] Ordered By: Mary Al on 10-25-2023 Globulin (S) [Mass/Vol] 2.9 g/dL [facility] Glucose [Mass/volume] in Ser um or PlasmaOrdered By: Mary Al on 10-25-2023 Glucose [Mass/Vol] 132 mg/dL 70-100 [facility] Comment on above: ADA recommended refe rence rangeRandom Glucose Reference Range is dependent on time and content of last meal. Glucose of more than 200 mg/dL in a nonstressed, ambulatory subject supports the diagnosis of Diabetes Mellitus. Hematocrit Auto (Bld) [Volum e fraction]Ordered By: Mary Al on 10-25-2023 Hematocrit (Bld) [Volume fraction] 38.4 % 34.0-46.4 [facility] Hemoglobin [Mass/volume] in BloodOrdered By: Mary Al on 10-25-2023 Hemoglobin (Bld) [Mass/Vol] 12.9 g/dL 11.8-15.4 [facility] Hepatic Panelon 10-25-2023 Albumin [Mass/Vol] 4.4 g/dL Normal 3.5-5.7 [facility] [place] [facility] Comment on above: Performed By: #### L WARREN AGUIRREAT, CBC, BUN #### [facility] [address] [place] [address] [place] Albumin/Globulin [Mass ratio] 1.5 {ratio} Normal [facility] Comment on above: Performed By: #### L YTES, CREAT, CBC, BUN #### [facility] [address] ALP [Catalytic activity/Vol] 79 U/L Normal 34-104 [facility] Comment on above: Performed By: #### L YTES, CREAT, CBC, BUN #### [address] ALT [Catalytic activity/Vol] 36 U/L Normal 7-52 [facility] Comment on above: Performed By: #### L YTES, CREAT, CBC, BUN #### [address] AST [Catalytic activity/Vol] 52 U/L High 13-39 [facility] Comment on above: Performed By: #### L YTES, CREAT, CBC, BUN #### [place] [address] [place] Bilirubin [Mass/Vol] 1.0 mg/dL Normal 0.3-1.0 [facility] Comment on above: Performed By: #### L YTES, CREAT, CBC, BUN #### [place] [address] [place] Bilirubin,Indirect 0.8 mg/dL Normal [facility] [place] [facility] Comment on above: Performed By: #### L YTES, CREAT, CBC, BUN #### [place] [address] [place] Bilirubin.indirect [Mass/Vol] 0.20 mg/dL High 0.03-0.18 [facility] Comment on above: Performed By: #### L YTES, CREAT, CBC, BUN #### [address] Globulin (S) [Mass/Vol] 2.9 g/dL Normal [facility] Comment on above: Performed By: #### L YTES, CREAT, CBC, BUN #### [facility] [address] [place] [address] [place] Protein [Mass/Vol] 7.3 g/dL Normal 6.4-8.9 [facility] [place] [facility] Comment on above: Performed By: #### L YTES, CREAT, CBC, BUN #### [facility] [address] [place] [id number] [place] INR in Platelet poor plasma by Coagulation assayOrdered By: Mary Al on 10-25-2023 INR Coag (PPP) [Relative time] 1.0 {INR} [facility] Comment on above: INR Therapeutic Rang e A) Pre- and Peroperative OAT started two weeks before surgery. NOT HIP SURGERY: 1.5 - 2.5 HIP SURGERY: 2 - 3B) Primary and secondary prevention of venous THROMBOSIS: 2 - 3C) Active venous thrombosis, pulmonary embolismand prevention of recurrent venous thrombosis: 2 - 3D) Prevention of arterial thromboembolismincluding patients with mechanical heart valves: 3 - 4.5 Ketones Auto test strip (U) [Mass/Vol]Ordered By: Mary Al on 10-25-2023 Ketones (U) [Mass/Vol] Negative Negative [facility] - UrinalysisOrder ed By: Mary Al on 10-25-2023 Hyaline casts LM Ql (Urine sed) None seen [LPF] 0-8 [facility] Lactate [Moles/volume] in Se rum or PlasmaOrdered By: Mary Al on 10-25-2023 Lactate [Moles/Vol] 1.3 mmol/L 0.5-2.2 [facility] Lactic Acidon 10-25-2023 Lactate [Moles/Vol] 1.3 mmol/L Normal 0.5-2.2 [facility] [place] [facility] Comment on above: Result Comment: PERF ORMED BY: [place] [address] PATHOLOGIST GASOLINE ATTENDANT LYUDMILA GIANG M.D. Performed By: #### L YTES, CREAT, CBC, BUN #### [facility] [address] [place] [id number] [place] Leukocytes [#/volume] correc french for nucleated erythrocytes in Blood by Automated counOrdered By: Mary Al on 10-25-2023 WBC corrected for nucl RBC Auto (Bld) [#/Vol] 14.4 10*3/uL 3.8-11.6 [facility] Lymphocytes Auto (Bld) [#/Vo l]Ordered By: Mary Al on 10-25-2023 Lymphocytes (Bld) [#/Vol] 2.2 10*3/uL 1.00-4.8 [facility] Lymphocytes/100 WBC Auto (Bl d)Ordered By: Mary Al on 10-25-2023 Lymphocytes/100 WBC (Bld) 14.9 % . [facility] MCH Auto (RBC) [Entitic mass ]Ordered By: Mary Al on 10-25-2023 MCH (RBC) [Entitic mass] 29.3 pg 24.7-34.3 [facility] MCHC Auto (RBC) [Mass/Vol]Or dered By: Mary Al on 10-25-2023 MCHC (RBC) [Mass/Vol] 33.5 g/dL 32.0-35.0 [facility] MCV Auto (RBC) [Entitic vol] Ordered By: Mary Al on 10-25-2023 MCV (RBC) [Entitic vol] 87.5 fL 80-100 [facility] Monocyte distribution width [Entitic volume] in Blood by AutomatedOrdered By: Mary Al on 10-25-2023 Monocyte distribution width Auto (Bld) [Entitic vol] 18.93 % 0.00-20.00 [facility] Monocytes Auto (Bld) [#/Vol] Ordered By: Mary Al on 10-25-2023 Monocytes (Bld) [#/Vol] 1.0 10*3/uL 0.0-0.8 [facility] Monocytes/100 WBC Auto (Bld) Ordered By: Mary Al on 10-25-2023 Monocytes/100 WBC (Bld) 6.7 % . [facility] Natriuretic peptide B [Mass/ Vol]Ordered By: Mary Al on 10-25-2023 Natriuretic peptide B (Bld) [Mass/Vol] 42.0 pg/mL 5-100 [facility] Neutrophils Auto (Bld) [#/Vo l]Ordered By: Mary Al on 10-25-2023 Neutrophils (Bld) [#/Vol] 10.9 10*3/uL 1.8-7.7 [facility] Neutrophils/100 WBC Auto (Bl d)Ordered By: Mary Al on 10-25-2023 Neutrophils/100 WBC (Bld) 75.5 % . [facility] Nitrite Test strip Ql (U)Ord ered By: Mary Al on 10-25-2023 Nitrite Ql (U) Negative Negative [facility] No Panel InformationOrdered By: Mary Al on 10-25-2023 Estimated GFR (CKD-EPI) > 60.0 mL/Min [facility] Creatinine Clearance (Chem 61.55 [facility] Nucleated erythrocytes [Pres ence] in Blood by Automated countOrdered By: Mary Al on 10-25-2023 Nucleated RBC Auto Ql (Bld) 0.0 /100{WBC} 0-0.5 [facility] Partial Thromboplastin Timeo n 10-25-2023 aPTT Coag (Bld) [Time] 25.0 s Low 25.1-36.5 [facility] Comment on above: Result Comment: A he matocrit value greater than 55% may lead to inaccurate results in coagulation testing. Patients having hematocrit values >55% require a special collection tube for coagulation studies. Please contact the laboratory at [phone] for redraw instructions. Performed By: #### L YTES, CREAT, CBC, BUN #### [facility] [address] [place] [address] Platelet mean volume Auto (B ld) [Entitic vol]Ordered By: Mary Al on 10-25-2023 Platelet mean volume (Bld) [Entitic vol] 6.4 fL 6.3-10.7 [facility] Platelets Auto (Bld) [#/Vol] Ordered By: Mary Al on 10-25-2023 Platelets (Bld) [#/Vol] 397 10*3/uL 150-450 [facility] Potassium [Moles/volume] in Serum or PlasmaOrdered By: Mary Al on 10-25-2023 Potassium [Moles/Vol] 4.0 mmol/L 3.5-5.1 [facility] Protein Auto test strip (U) [Mass/Vol]Ordered By: Mary Al on 10-25-2023 Protein (U) [Mass/Vol] Negative Negative [facility] Protein [Mass/volume] in Ser um or PlasmaOrdered By: Mray Al on 10-25-2023 Protein [Mass/Vol] 7.3 g/dL 6.4-8.9 [facility] Prothrombin Time INRon 10-24 INR Coag (PPP) [Relative time] 1.0 {INR} Normal [facility] Comment on above: Result Comment: INR Therapeutic Range A) Pre- and Peroperative OAT started two weeks before surgery. NOT HIP SURGERY: 1.5 - 2.5 HIP SURGERY: 2 - 3 B) Primary and secondary prevention of venous THROMBOSIS: 2 - 3 C) Active venous thrombosis, pulmonary embolism and prevention of recurrent venous thrombosis: 2 - 3 D) Prevention of arterial thromboembolism including patients with mechanical heart valves: 3 - 4.5 Performed By: #### L YTES, CREAT, CBC, BUN #### [facility] [address] [place] [id number] [facility] PT Coag (PPP) [Time] 11.4 s Normal 9.0-12.9 [facility] Comment on above: Result Comment: A he matocrit value greater than 55% may lead to inaccurate results in coagulation testing. Patients having hematocrit values >55% require a special collection tube for coagulation studies. Please contact the laboratory at [phone] for redraw instructions. Performed By: #### L YTES, CREAT, CBC, BUN #### [facility] [address] [place] [address] [facility] Prothrombin time (PT)Ordered By: Mary Al on 10-25-2023 PT Coag (PPP) [Time] 11.4 s 9.0-12.9 [facility] Comment on above: A hematocrit value g reater than 55% may lead to inaccurate results in coagulation testing. Patients having hematocrit values >55% require a special collection tube for coagulation studies. Please contact the laboratory at [phone] for redraw instructions. RBC Auto (Bld) [#/Vol]Ordere d By: Mary Al on 10-25-2023 RBC (Bld) [#/Vol] 4.39 10*6/uL 3.60-5.00 [facility] Serum or plasma albumin/glob ulin mass ratioOrdered By: Mary Al on 10-25-2023 Albumin/Globulin [Mass ratio] 1.5 {ratio} [facility] Serum or plasma anion gap de terminationOrdered By: Mary Al on 10-25-2023 Anion gap [Moles/Vol] 15.1 mmol/L 6.0-15.[address] [facility] Serum or plasma non-glucuron idated bilirubin measurement (mass/volume)Ordered By: Mary Al on 10-25-2023 Bilirubin.indirect [Mass/Vol] 0.8 mg/dL [facility] Sodium [Moles/volume] in Ser um or PlasmaOrdered By: Mary Al on 10-25-2023 Sodium [Moles/Vol] 133 mmol/L 136-145 [facility] Comment on above: Delta: 142 on -826 Specific gravity Auto test s trip (U) [Rel density]Ordered By: Mary Al on 10-25-2023 Specific gravity (U) [Rel density] 1.037 1.001-1.03 0 [facility] Squamous epithelial cells de tection in urine sediment by light microscopyOrdered By: Mary Al on 10-25-2023 Epithelial cells.squamous LM Ql (Urine sed) 0-1 [HPF] 0-2 [facility] Troponin I High Sensitivityo n 10-25-2023 Troponin I High Sensitivity 6.3 pg/mL Normal 0.0-15.0 [facility] Comment on above: Result Comment: PERF ORMED BY: [facility] [address] [facility] [place] [address] PATHOLOGIST GASOLINE ATTENDANT LYUDMILA GIANG M.D. Performed By: #### L YTES, CREAT, CBC, BUN #### [facility] [address] Troponin I.cardiac [Mass/vol ume] in Serum or Plasma by Detection limit <= 0.01 ng/Ordered By: Mary Al on 10-25-2023 Troponin I.cardiac DL <= 0.01 ng/mL [Mass/Vol] 4.9 pg/mL 0.0-15.0 [facility] Urea nitrogen [Mass/volume] in Serum or PlasmaOrdered By: Mary Al on 10-25-2023 Urea nitrogen [Mass/Vol] 20 mg/dL 7-25 [facility] Urine bacteria detection by automated methodOrdered By: Mary Al on 10-25-2023 Bacteria Auto Ql (U) None seen None Seen [facility] Urine clarity by refractomet ry automatedOrdered By: Mary Al on 10-25-2023 Clarity Refractometry automated (U) Clear Clear [facility] Urine culture routineOrdered By: Mary Al on 10-25-2023 Bacteria identified Cx Nom (U) 2 Days [facility] Urine glucose measurement by automated test strip (mass/volume)Ordered By: Mary Al on 10-25-2023 Glucose Auto test strip (U) [Mass/Vol] Normal mg/dL Normal [facility] Urine hemoglobin detection b y automated test stripOrdered By: Mary Al on 10-25-2023 Hemoglobin Auto test strip Ql (U) Trace Negative [facility] Urine leukocyte esterase det ection by automated test stripOrdered By: Mary Al on 10-25-2023 Leukocyte esterase Auto test strip Ql (U) 2+ Negative [facility] Urobilinogen Auto test strip (U) [Mass/Vol]Ordered By: Mary Al on 10-25-2023 Urobilinogen (U) [Mass/Vol] Normal mg/dL Normal [facility] WBC Auto (Bld) [#/Vol]Ordere d By: Mary Al on 10-25-2023 WBC (Bld) [#/Vol] 14.4 10*3/uL 3.8-11.6 [facility] pH Auto test strip (U)Ordere d By: Mary Al on 10-25-2023 pH (U) 5.5 [pH] 5.0-9.0 [facility] A1C with Estimated Average G luon 10-24-2023 Glucose [Mass/Vol] 111 mg/dL Normal [facility] Comment on above: Result Comment: PERF ORMED BY: [place] [address] PATHOLOGIST GASOLINE ATTENDANT LYUDMILA GIANG M.D. Performed By: #### L YTES, CREAT, CBC, BUN #### [facility] [address] HbA1c (Bld) [Mass fraction] 5.5 % Normal 4.3-5.6 [facility] Comment on above: Result Comment: Incr eased risk for diabetes: 5.7 - 6.4 diabetes: >6.4 glycemic control for adults with diabetes: <7.0 Performed By: #### L YTES, CREAT, CBC, BUN #### [facility] [address] Alanine aminotransferase [En zymatic activity/volume] in Serum or PlasmaOrdered By: Charles Bazzi on 10-24-2023 ALT [Catalytic activity/Vol] 12 U/L 7-52 [facility] Albumin [Mass/volume] in Ser um or Plasma by Bromocresol green (BCG) dye binding methoOrdered By: Charles Bazzi on 10-24-2023 Albumin BCG dye [Mass/Vol] 4.0 g/dL 3.5-5.7 [facility] Alkaline phosphatase [Enzyma tic activity/volume] in Serum or PlasmaOrdered By: Charles Bazzi on 10-24-2023 ALP [Catalytic activity/Vol] 68 U/L 34-104 [facility] Aspartate aminotransferase [ Enzymatic activity/volume] in Serum or PlasmaOrdered By: Charles Bazzi on 10-24-2023 AST [Catalytic activity/Vol] 12 U/L 13-39 [facility] Basophils Auto (Bld) [#/Vol] Ordered By: Charles Bazzi on 10-24-2023 Basophils (Bld) [#/Vol] 0.0 10*3/uL 0.0-0.2 [facility] Basophils/100 WBC Auto (Bld) Ordered By: Charles Bazzi on 10-24-2023 Basophils/100 WBC (Bld) 0.9 % . [facility] Bilirubin.total [Mass/volume ] in Serum or PlasmaOrdered By: Charles Bazzi on 10-24-2023 Bilirubin [Mass/Vol] 0.5 mg/dL 0.3-1.0 [facility] Calcium [Mass/volume] in Ser um or PlasmaOrdered By: Charles Bazzi on 10-24-2023 Calcium [Mass/Vol] 9.5 mg/dL 8.6-10.3 [facility] Carbon dioxide, total [Moles /volume] in Serum or PlasmaOrdered By: Charles Bazzi on 10-24-2023 CO2 [Moles/Vol] 31.6 mmol/L 21.0-31.0 [facility] Chloride [Moles/volume] in S jeevan or PlasmaOrdered By: Charles Bazzi on 10-24-2023 Chloride [Moles/Vol] 105 mmol/L 98-107 [facility] Cholesterol [Mass/volume] in Serum or PlasmaOrdered By: hCarles Bazzi on 10-24-2023 Cholesterol [Mass/Vol] 187 mg/dL 140-200 [facility] Comment on above: Chol less than 200 m g/dl low riskChol 201-239 mg/dl borderline riskChol 240 mg/dl and greater high risk Cholesterol in LDL Calc [Mas s/Vol]Ordered By: Charles Bazzi on 10-24-2023 Cholesterol in LDL [Mass/Vol] 95 mg/dL 0-100 [facility] Comment on above: LDL ATP III CLASSIFI CATIONLDL less than 100 mg/dL OptimalLDL 100-129 mg/dL Near or above optimalLDL 130-159 mg/dL Borderline highLDL 160-189 mg/dL HighLDL greater than 189 mg/dL Very high Cholesterol in VLDL Calc [Ma ss/Vol]Ordered By: Charles Bazzi on 10-24-2023 Cholesterol in VLDL [Mass/Vol] 38 mg/dL [facility] Complete Blood Count Auto Di ffon 10-24-2023 Basophils (Bld) [#/Vol] 0.0 10*3/uL Normal 0.0-0.2 [facility] Comment on above: Result Comment: PERF ORMED BY: [facility] [address] [place] [address] PATHOLOGIST GASOLINE ATTENDANT LYUDMILA GIANG M.D. Performed By: #### L YTES, CREAT, CBC, BUN #### [address] Basophils/100 WBC (Bld) 0.9 % Normal . [facility] Comment on above: Performed By: #### L YTES, CREAT, CBC, BUN #### [address] Eosinophils (Bld) [#/Vol] 0.5 10*3/uL High 0.0-0.45 [facility] Comment on above: Performed By: #### L YTES, CREAT, CBC, BUN #### [address] Eosinophils/100 WBC (Bld) 9.5 % Normal . [facility] Comment on above: Performed By: #### L YTES, CREAT, CBC, BUN #### [address] Erythrocyte distribution width (RBC) [Ratio] 15.4 % High 11.9-15.3 [facility] Comment on above: Performed By: #### L YTES, CREAT, CBC, BUN #### [address] Hematocrit (Bld) [Volume fraction] 34.2 % Normal 34.0-46.4 [facility] Comment on above: Performed By: #### L YTES, CREAT, CBC, BUN #### [address] Hemoglobin (Bld) [Mass/Vol] 11.3 g/dL Low 11.8-15.4 [facility] Comment on above: Performed By: #### L YTES, CREAT, CBC, BUN #### [address] Lymphocytes (Bld) [#/Vol] 1.0 10*3/uL Normal 1.00-4.8 [facility] Comment on above: Performed By: #### L YTES, CREAT, CBC, BUN #### [address] Lymphocytes/100 WBC (Bld) 20.9 % Normal . [facility] Comment on above: Performed By: #### L YTES, CREAT, CBC, BUN #### [address] MCH (RBC) [Entitic mass] 29.7 pg Normal 24.7-34.3 [facility] Comment on above: Performed By: #### L YTES, CREAT, CBC, BUN #### [address] MCV (RBC) [Entitic vol] 89.9 fL Normal 80-100 [facility] Comment on above: Performed By: #### L YTES, CREAT, CBC, BUN #### [address] Mean Corpuscular HGB Conc 33.1 g/dL Normal 32.0-35.0 [facility] Comment on above: Performed By: #### L YTES, CREAT, CBC, BUN #### [address] Monocytes (Bld) [#/Vol] 0.5 10*3/uL Normal 0.0-0.8 [facility] Comment on above: Performed By: #### L YTES, CREAT, CBC, BUN #### [place] [address] [place] Monocytes/100 WBC (Bld) 10.5 % Normal . [facility] Comment on above: Performed By: #### L YTES, CREAT, CBC, BUN #### [address] Neutrophils (Bld) [#/Vol] 2.9 10*3/uL Normal 1.8-7.7 [facility] Comment on above: Performed By: #### L YTES, CREAT, CBC, BUN #### [place] [address] [place] Neutrophils/100 WBC (Bld) 58.2 % Normal . [facility] Comment on above: Performed By: #### L YTES, CREAT, CBC, BUN #### [address] NRBC% 0.1 /100{WBC} Normal 0-0.5 [facility] Comment on above: Performed By: #### L YTES, CREAT, CBC, BUN #### [address] Platelet mean volume (Bld) [Entitic vol] 6.6 fL Normal 6.3-10.7 [facility] Comment on above: Performed By: #### L YTES, CREAT, CBC, BUN #### [address] Platelets (Bld) [#/Vol] 328 10*3/uL Normal 150-450 [facility] Comment on above: Performed By: #### L YTES, CREAT, CBC, BUN #### [address] RBC (Bld) [#/Vol] 3.80 10*6/uL Normal 3.60-5.00 [facility] Comment on above: Performed By: #### L YTES, CREAT, CBC, BUN #### [address] WBC (Bld) [#/Vol] 4.9 10*3/uL Normal 3.8-11.6 [facility] [place] [facility] Comment on above: Performed By: #### L YTES, CREAT, CBC, BUN #### [address] Comprehensive Metabolic Pane jake 10-24-2023 Albumin [Mass/Vol] 4.0 g/dL Normal 3.5-5.7 [facility] [place] [facility] Comment on above: Order Comment: Reaso n for Exam Hyperlipidemia Performed By: #### L YTES, CREAT, CBC, BUN #### [address] Albumin/Globulin [Mass ratio] 1.8 {ratio} Normal [facility] Comment on above: Order Comment: Reaso n for Exam Hyperlipidemia Performed By: #### L YTES, CREAT, CBC, BUN #### [address] ALP [Catalytic activity/Vol] 68 U/L Normal 34-104 [facility] Comment on above: Order Comment: Reaso n for Exam Hyperlipidemia Performed By: #### L YTES, CREAT, CBC, BUN #### [address] ALT [Catalytic activity/Vol] 12 U/L Normal 7-52 [facility] Comment on above: Order Comment: Reaso n for Exam Hyperlipidemia Performed By: #### L YTES, CREAT, CBC, BUN #### [address] Anion gap [Moles/Vol] 9.7 mmol/L Normal 6.0-15.0 [facility] Comment on above: Order Comment: Reaso n for Exam Hyperlipidemia Performed By: #### L YTES, CREAT, CBC, BUN #### [place] [address] [place] AST [Catalytic activity/Vol] 12 U/L Low 13-39 [facility] Comment on above: Order Comment: Reaso n for Exam Hyperlipidemia Performed By: #### L YTES, CREAT, CBC, BUN #### [place] [address] [place] Bilirubin [Mass/Vol] 0.5 mg/dL Normal 0.3-1.0 [facility] Comment on above: Order Comment: Reaso n for Exam Hyperlipidemia Performed By: #### L YTES, CREAT, CBC, BUN #### [facility] [address] [place] [address] [place] Calcium [Mass/Vol] 9.5 mg/dL Normal 8.6-10.3 [facility] [place] [facility] Comment on above: Order Comment: Reaso n for Exam Hyperlipidemia Performed By: #### L YTES, CREAT, CBC, BUN #### [address] [address] [place] Chloride [Moles/Vol] 105 mmol/L Normal 98-107 [facility] Comment on above: Order Comment: Reaso n for Exam Hyperlipidemia Performed By: #### L YTES, CREAT, CBC, BUN #### [facility] [address] CO2 [Moles/Vol] 31.6 mmol/L High 21.0-31.0 [facility] Comment on above: Order Comment: Reaso n for Exam Hyperlipidemia Performed By: #### L YTES, CREAT, CBC, BUN #### [address] Creatinine [Mass/Vol] 0.71 mg/dL Normal 0.60-1.20 [facility] Comment on above: Order Comment: Reaso n for Exam Hyperlipidemia Performed By: #### L YTES, CREAT, CBC, BUN #### [address] GFR/1.73 sq M.predicted MDRD (S/P/Bld) [Vol rate/Area] mL/min/{1.73_m2} Normal [facility] Comment on above: Order Comment: Reaso n for Exam Hyperlipidemia Performed By: #### L YTES, CREAT, CBC, BUN #### [address] Globulin (S) [Mass/Vol] 2.2 g/dL Normal [facility] Comment on above: Order Comment: Reaso n for Exam Hyperlipidemia Performed By: #### L YTES, CREAT, CBC, BUN #### [address] Glucose [Mass/Vol] 77 mg/dL Normal 70-100 [facility] [place] [facility] Comment on above: Order Comment: Reaso n for Exam Hyperlipidemia Result Comment: [employer] Glucose Reference Range is dependent on time and content of last meal. Glucose of more than 200 mg/dL in a nonstressed, ambulatory subject supports the diagnosis of Diabetes Mellitus. ADA recommended reference range Performed By: #### L YTES, CREAT, CBC, BUN #### [facility] [address] Potassium [Moles/Vol] 4.3 mmol/L Normal 3.5-5.1 [facility] Comment on above: Order Comment: Reaso n for Exam Hyperlipidemia Performed By: #### L YTES, CREAT, CBC, BUN #### [facility] [address] [place] [address] Protein [Mass/Vol] 6.2 g/dL Low 6.4-8.9 [facility] [place] [facility] Comment on above: Order Comment: Reaso n for Exam Hyperlipidemia Performed By: #### L YTES, CREAT, CBC, BUN #### [facility] [address] [place] [address] Sodium [Moles/Vol] 142 mmol/L Normal 136-145 [facility] [place] [facility] Comment on above: Order Comment: Reaso n for Exam Hyperlipidemia Performed By: #### L YTES, CREAT, CBC, BUN #### [address] Urea nitrogen [Mass/Vol] 21 mg/dL Normal 7-25 [facility] Comment on above: Order Comment: Reaso n for Exam Hyperlipidemia Performed By: #### L YTES, CREAT, CBC, BUN #### [address] Creatinine [Mass/volume] in Serum or PlasmaOrdered By: Charles Bazzi on 10-24-2023 Creatinine [Mass/Vol] 0.71 mg/dL 0.60-1.20 [facility] Eosinophils Auto (Bld) [#/Vo l]Ordered By: Charles Bazzi on 10-24-2023 Eosinophils (Bld) [#/Vol] 0.5 10*3/uL 0.0-0.45 [facility] Eosinophils/100 WBC Auto (Bl d)Ordered By: Charles Bazzi on 10-24-2023 Eosinophils/100 WBC (Bld) 9.5 % . [facility] Erythrocyte distribution wid th Auto (RBC) [Ratio]Ordered By: Charles Bazzi on 10-24-2023 Erythrocyte distribution width (RBC) [Ratio] 15.4 % 11.9-15.3 [facility] Globulin Calc (S) [Mass/Vol] Ordered By: Charles Bazzi on 10-24-2023 Globulin (S) [Mass/Vol] 2.2 g/dL [facility] Glucose [Mass/volume] in Ser um or PlasmaOrdered By: Charles Bazzi on 10-24-2023 Glucose [Mass/Vol] 77 mg/dL 70-100 [facility] Comment on above: ADA recommended refe rence rangeRandom Glucose Reference Range is dependent on time and content of last meal. Glucose of more than 200 mg/dL in a nonstressed, ambulatory subject supports the diagnosis of Diabetes Mellitus. Glucose mean value [Mass/vol ume] in Blood Estimated from glycated hemoglobinOrdered By: Charles Bazzi on 10-24-2023 Average glucose Estimated from glycated hemoglobin (Bld) [Mass/Vol] 111 mg/dL [facility] Hematocrit Auto (Bld) [Volum e fraction]Ordered By: Charles Bazzi on 10-24-2023 Hematocrit (Bld) [Volume fraction] 34.2 % 34.0-46.4 [facility] Hemoglobin A1c percentageOrd ered By: Charles Bazzi on 10-24-2023 HbA1c (Bld) [Mass fraction] 5.5 % 4.3-5.6 [facility] Comment on above: Increased risk for d iabetes: 5.7 - 6.4diabetes: >6.4glycemic control for adults with diabetes: <7.0 Hemoglobin [Mass/volume] in BloodOrdered By: Charles Bazzi on 10-24-2023 Hemoglobin (Bld) [Mass/Vol] 11.3 g/dL 11.8-15.4 [facility] Leukocytes [#/volume] correc french for nucleated erythrocytes in Blood by Automated counOrdered By: Charles Bazzi on 10-24-2023 WBC corrected for nucl RBC Auto (Bld) [#/Vol] 4.9 10*3/uL 3.8-11.6 [facility] Lipid Panelon 10-24-2023 Cholesterol [Mass/Vol] 187 mg/dL Normal 140-200 [facility] Comment on above: Order Comment: Reaso n for Exam Hyperlipidemia Result Comment: Chol less than 200 mg/dl low risk Chol 201-239 mg/dl borderline risk Chol 240 mg/dl and greater high risk Performed By: #### L YTES, CREAT, CBC, BUN #### [facility] [address] Cholesterol in HDL [Mass/Vol] 54 mg/dL Normal 23-92 [facility] Comment on above: Order Comment: Reaso n for Exam Hyperlipidemia Result Comment: HDL CHOL ATP-III CLASSIFICATION Cardiovascular Risk HDL > or equal to 60 mg/dL LOW HDL < 40 mg/dL HIGH Performed By: #### L YTES, CREAT, CBC, BUN #### [facility] [address] Cholesterol.total/Chol esterol in HDL [Mass ratio] 3.5 {ratio} Normal <5.0 [facility] Comment on above: Order Comment: Reaso n for Exam Hyperlipidemia Performed By: #### L YTES, CREAT, CBC, BUN #### [address] LDL Cholesterol,Calculated 95 mg/dL Normal 0-100 [facility] Comment on above: Order Comment: Reaso n for Exam Hyperlipidemia Result Comment: LDL ATP III CLASSIFICATION LDL less than 100 mg/dL Optimal LDL 100-129 mg/dL Near or above optimal LDL 130-159 mg/dL Borderline high LDL 160-189 mg/dL High LDL greater than 189 mg/dL Very high Performed By: #### L YTES, CREAT, CBC, BUN #### [facility] [address] Triglyceride w/Reflex 191 mg/dL High 0-149 [facility] Comment on above: Order Comment: Reaso n for Exam Hyperlipidemia Result Comment: TRIG ATP III CLASSIFICATION TRIG less than 150 mg/dL Normal TRIG 150-199 mg/dL Borderline high TRIG 200-500 mg/dL High TRIG greater than 500 mg/dL Very high Standard traceable to the Center for Disease Conrtrol and Prevention (CDC) test method. Performed By: #### L YTES, CREAT, CBC, BUN #### [facility] [address] VLDL CHOLESTEROL 38 mg/dL Normal [facility] Comment on above: Order Comment: Reaso n for Exam Hyperlipidemia Performed By: #### L YTKEON, GHULAM, CBC, BUN #### [facility] [address] Lymphocytes Auto (Bld) [#/Vo l]Ordered By: Charles Bazzi on 10-24-2023 Lymphocytes (Bld) [#/Vol] 1.0 10*3/uL 1.00-4.8 [facility] Lymphocytes/100 WBC Auto (Bl d)Ordered By: Charles Bazzi on 10-24-2023 Lymphocytes/100 WBC (Bld) 20.9 % . [facility] MCH Auto (RBC) [Entitic mass ]Ordered By: Charles Bazzi on 10-24-2023 MCH (RBC) [Entitic mass] 29.7 pg 24.7-34.3 [facility] MCHC Auto (RBC) [Mass/Vol]Or dered By: Charles Bazzi on 10-24-2023 MCHC (RBC) [Mass/Vol] 33.1 g/dL 32.0-35.0 [facility] MCV Auto (RBC) [Entitic vol] Ordered By: Charles Bazzi on 10-24-2023 MCV (RBC) [Entitic vol] 89.9 fL 80-100 [facility] Monocytes Auto (Bld) [#/Vol] Ordered By: Charles Bazzi on 10-24-2023 Monocytes (Bld) [#/Vol] 0.5 10*3/uL 0.0-0.8 [facility] Monocytes/100 WBC Auto (Bld) Ordered By: Charles Bazzi on 10-24-2023 Monocytes/100 WBC (Bld) 10.5 % . [facility] Neutrophils Auto (Bld) [#/Vo l]Ordered By: Charles Bazzi on 10-24-2023 Neutrophils (Bld) [#/Vol] 2.9 10*3/uL 1.8-7.7 [facility] Neutrophils/100 WBC Auto (Bl d)Ordered By: Charles Bazzi on 10-24-2023 Neutrophils/100 WBC (Bld) 58.2 % . [facility] No Panel InformationOrdered By: Charles Bazzi on 10-24-2023 Estimated GFR (CKD-EPI) > 60.0 mL/Min [facility] Creatinine Clearance (Chem N/A [facility] Nucleated erythrocytes [Pres ence] in Blood by Automated countOrdered By: Charles Bazzi on 10-24-2023 Nucleated RBC Auto Ql (Bld) 0.1 /100{WBC} 0-0.5 [facility] Platelet mean volume Auto (B ld) [Entitic vol]Ordered By: Charles Bazzi on 10-24-2023 Platelet mean volume (Bld) [Entitic vol] 6.6 fL 6.3-10.7 [facility] Platelets Auto (Bld) [#/Vol] Ordered By: Charles Bazzi on 10-24-2023 Platelets (Bld) [#/Vol] 328 10*3/uL 150-450 [facility] Potassium [Moles/volume] in Serum or PlasmaOrdered By: Charles Bazzi on 10-24-2023 Potassium [Moles/Vol] 4.3 mmol/L 3.5-5.1 [facility] Protein [Mass/volume] in Ser um or PlasmaOrdered By: Charles Bazzi on 10-24-2023 Protein [Mass/Vol] 6.2 g/dL 6.4-8.9 [facility] RBC Auto (Bld) [#/Vol]Ordere d By: Charles Bazzi on 10-24-2023 RBC (Bld) [#/Vol] 3.80 10*6/uL 3.60-5.00 [facility] Serum or plasma albumin/glob ulin mass ratioOrdered By: Charles Bazzi on 10-24-2023 Albumin/Globulin [Mass ratio] 1.8 {ratio} [facility] Serum or plasma anion gap de terminationOrdered By: Charles Bazzi on 10-24-2023 Anion gap [Moles/Vol] 9.7 mmol/L 6.0-15.0 [facility] Serum or plasma high density lipoprotein (HDL) cholesterol measurementOrdered By: Charles Bazzi on 10-24-2023 Cholesterol in HDL [Mass/Vol] 54 mg/dL 23-92 [facility] Comment on above: HDL CHOL ATP-III CLA SSIFICATION Cardiovascular RiskHDL > or equal to 60 mg/dL LOWHDL < 40 mg/dL HIGH Serum or plasma total choles terol/high density lipoprotein (HDL) cholesterol mass ratOrdered By: Charles Bazzi on 10-24-2023 Cholesterol.total/Chol esterol in HDL [Mass ratio] 3.5 {ratio} <5.0 [facility] Sodium [Moles/volume] in Ser um or PlasmaOrdered By: Charles Bazzi on 10-24-2023 Sodium [Moles/Vol] 142 mmol/L 136-145 [facility] Thyroid Stimulating Hormoneo n 10-24-2023 TSH Qn 2.33 m[IU]/L Normal 0.45-5.33 [facility] Comment on above: Order Comment: Reaso n for Exam Hyperlipidemia Result Comment: PERF ORMED BY: [place] [address] PATHOLOGIST GASOLINE ATTENDANT LYUDMILA GIANG M.D. Performed By: #### L YTES, CREAT, CBC, BUN #### [address] Thyrotropin [Units/volume] i n Serum or PlasmaOrdered By: Charles Bazzi on 10-24-2023 TSH Qn 2.33 m[IU]/L 0.45-5.33 [facility] Triglyceride [Mass/volume] i n Serum or PlasmaOrdered By: Charles Bazzi on 10-24-2023 Triglyceride [Mass/Vol] 191 mg/dL 0-149 [facility] Comment on above: TRIG ATP III CLASSIF ICATIONTRIG less than 150 mg/dL NormalTRIG 150-199 mg/dL Borderline highTRIG 200-500 mg/dL High TRIG greater than 500 mg/dL Very highStandard traceable to the Center for Disease Conrtrol and Prevention (CDC) test method. Urea nitrogen [Mass/volume] in Serum or PlasmaOrdered By: Charles Bazzi on 10-24-2023 Urea nitrogen [Mass/Vol] 21 mg/dL 7-25 [facility] WBC Auto (Bld) [#/Vol]Ordere d By: Charles Bazzi on 10-24-2023 WBC (Bld) [#/Vol] 4.9 10*3/uL 3.8-11.6 [facility] CNPNon 10-17-2023 CNPN Normal [facility] [place] Basophils Auto (Bld) [#/Vol] on 10-10-2023 Basophils (Bld) [#/Vol] 0.04 10*3/uL <0.11 [facility] Basophils/100 WBC Auto (Bld) on 10-10-2023 Basophils/100 WBC (Bld) 0.5 % [facility] Blood manual differential co mment interpretation narrativeon 10-10-2023 Manual differential comment Ankush (Bld) [Interp] Auto [facility] CBC W Auto Differential pane l (Bld)on 10-10-2023 Basophils (Bld) [#/Vol] 0.04 10*3/uL <0.11 k/uL [facility] Basophils/100 WBC (Bld) 0.5 % [facility] Differential cell count method Nom (Bld) Auto [facility] Eosinophils (Bld) [#/Vol] 0.52 10*3/uL High <0.46 k/uL [facility] Eosinophils/100 WBC (Bld) 7.1 % [facility] Erythrocyte distribution width (RBC) [Ratio] 15.2 % High 11.5 - 15.0 % [facility] Hematocrit (Bld) [Volume fraction] 35.1 % Low 36.0 - 46.0 % [facility] Hemoglobin (Bld) [Mass/Vol] 11.7 g/dL 11.5 - 15.5 g/[facility] Immature granulocytes (Bld) [#/Vol] 0.04 10*3/uL <0.10 k/uL [facility] Immature granulocytes/100 WBC (Bld) 0.5 % [facility] Lymphocytes (Bld) [#/Vol] 0.62 10*3/uL Low 1.00 - 4.00 k/uL [facility] Lymphocytes/100 WBC (Bld) 8.5 % [facility] MCH (RBC) [Entitic mass] 29.8 pg 26.0 - 34.0 pg [facility] MCHC (RBC) [Mass/Vol] 33.3 g/dL 30.5 - 36.0 g/dL [facility] MCV (RBC) [Entitic vol] 89.5 fL 80.0 - 100.0 fL [facility] Monocytes (Bld) [#/Vol] 0.62 10*3/uL <0.87 k/uL [facility] Monocytes/100 WBC (Bld) 8.5 % [facility] Neutrophils (Bld) [#/Vol] 5.49 10*3/uL 1.45 - 7.50 k/uL [facility] Neutrophils/100 WBC (Bld) 74.9 % [facility] Nucleated RBC (Bld) [#/Vol] <0.01 k/uL [facility] Nucleated RBC/100 WBC (Bld) [Ratio] 0.0 /100 WBC [facility] Platelet mean volume (Bld) [Entitic vol] 8.1 fL Low 9.0 - 12.7 fL [facility] Platelets (Bld) [#/Vol] 274 10*3/uL 150 - 400 k/uL [facility] RBC (Bld) [#/Vol] 3.92 10*6/uL 3.90 - 5.20 m/uL [facility] WBC (Bld) [#/Vol] 7.33 10*3/uL 3.70 - 11.00 k/uL [facility] Basophils (Bld) [#/Vol] 0.04 10*3/uL Normal <0.11 [facility] Comment on above: Order Comment: Speci men Type: BLOOD SPECIMENOrdering Facility: [facility] Address: [address] [place] [address] Performed By: #### 5 7021-8 ####[facility] LABCLIA [id number] [place] [address] Basophils/100 WBC (Bld) 0.5 % Normal [facility] Comment on above: Order Comment: Speci men Type: BLOOD SPECIMENOrdering Facility: [facility] Address: [address] [place] [address] Performed By: #### 5 7021-8 ####[facility] LABCLIA [id number] [place] [address] Differential cell count method Nom (Bld) Auto Normal [facility] Comment on above: Order Comment: Speci men Type: BLOOD SPECIMENOrdering Facility: [facility] Address: [address] [place] [address] Performed By: #### 5 7021-8 ####[facility] LABCLIA [id number] [place] [address] Eosinophils (Bld) [#/Vol] 0.52 10*3/uL High <0.46 [facility] Comment on above: Order Comment: Speci men Type: BLOOD SPECIMENOrdering Facility: [facility] Address: [address] [place] [address] Performed By: #### 5 7021-8 ####[facility] LABCLIA [id number] [place] [address] Eosinophils/100 WBC (Bld) 7.1 % Normal [facility] Comment on above: Order Comment: Speci men Type: BLOOD SPECIMENOrdering Facility: [facility] Address: [address] [place] [address] Performed By: #### 5 7021-8 ####[facility] LABCLIA [id number] [place] [address] Erythrocyte distribution width (RBC) [Ratio] 15.2 % High 11.5-15.0 [facility] Comment on above: Order Comment: Speci men Type: BLOOD SPECIMENOrdering Facility: [facility] Address: [address] [place] [address] Performed By: #### 5 7021-8 ####[facility] LABCLIA [id number] [place] [address] Hematocrit (Bld) [Volume fraction] 35.1 % Low 36.0-46.0 [facility] Comment on above: Order Comment: Speci men Type: BLOOD SPECIMENOrdering Facility: [facility] Address: [address] [place] [address] Performed By: #### 5 7021-8 ####[facility] LABCLIA [id number] [place] [address] Hemoglobin (Bld) [Mass/Vol] 11.7 g/dL Normal 11.5-15.5 [facility] Comment on above: Order Comment: Speci men Type: BLOOD SPECIMENOrdering Facility: [facility] Address: [address] [place] [address] Performed By: #### 5 7021-8 ####[facility] LABCLIA [id number] [place] [address] Immature granulocytes (Bld) [#/Vol] 0.04 10*3/uL Normal <0.10 [facility] Comment on above: Order Comment: Speci men Type: BLOOD SPECIMENOrdering Facility: [facility] Address: [address] [place] [address] Performed By: #### 5 7021-8 ####[facility]CLIA [id number] [place] [address] Immature granulocytes/100 WBC (Bld) 0.5 % Normal [facility] Comment on above: Order Comment: Speci men Type: BLOOD SPECIMENOrdering Facility: [facility] Address: [address] [place] [address] Performed By: #### 5 7021-8 ####[facility] LABCLIA [id number] [place] [address] Lymphocytes (Bld) [#/Vol] 0.62 10*3/uL Low 1.00-4.00 [facility] Comment on above: Order Comment: Speci men Type: BLOOD SPECIMENOrdering Facility: [facility] Address: [address] [place] [address] Performed By: #### 5 7021-8 ####[facility]CLIA [id number] [place] [address] Lymphocytes/100 WBC (Bld) 8.5 % Normal [facility] Comment on above: Order Comment: Speci men Type: BLOOD SPECIMENOrdering Facility: [facility] Address: [address] [place] [address] Performed By: #### 5 7021-8 ####[facility] LABCLIA [id number] [place] [address] MCH (RBC) [Entitic mass] 29.8 pg Normal 26.0-34.0 [facility] Comment on above: Order Comment: Speci men Type: BLOOD SPECIMENOrdering Facility: [facility] Address: [address] [place] [address] Performed By: #### 5 7021-8 ####[facility]CLIA [id number] [place] [address] MCHC (RBC) [Mass/Vol] 33.3 g/dL Normal 30.5-36.0 [facility] Comment on above: Order Comment: Speci men Type: BLOOD SPECIMENOrdering Facility: [facility] Address: [address] [place] [address] Performed By: #### 5 7021-8 ####[facility] LABCLIA [id number] [place] [address] MCV (RBC) [Entitic vol] 89.5 fL Normal 80.0-100.0 [facility] Comment on above: Order Comment: Speci men Type: BLOOD SPECIMENOrdering Facility: [facility] Address: [address] [place] [address] Performed By: #### 5 7021-8 ####[facility] LABCLIA [id number] [place] [address] Monocytes (Bld) [#/Vol] 0.62 10*3/uL Normal <0.87 [facility] Comment on above: Order Comment: Speci men Type: BLOOD SPECIMENOrdering Facility: [facility] Address: [address] [place] [address] Performed By: #### 5 7021-8 ####[facility] LABCLIA [id number] [place] [address] Monocytes/100 WBC (Bld) 8.5 % Normal [facility] Comment on above: Order Comment: Speci men Type: BLOOD SPECIMENOrdering Facility: [facility] Address: [address] [place] [address] Performed By: #### 5 7021-8 ####[facility] LABCLIA [id number] [place] [address] Neutrophils (Bld) [#/Vol] 5.49 10*3/uL Normal 1.45-7.50 [facility] Comment on above: Order Comment: Speci men Type: BLOOD SPECIMENOrdering Facility: [facility] Address: [address] [place] [address] Performed By: #### 5 7021-8 ####[facility] LABIA [id number] [place] [address] Neutrophils/100 WBC (Bld) 74.9 % Normal [facility] Comment on above: Order Comment: Speci men Type: BLOOD SPECIMENOrdering Facility: [facility] Address: [address] [place] [address] Performed By: #### 5 7021-8 ####[facility]CLIA [id number] [place] [address] Nucleated RBC (Bld) [#/Vol] 10*3/uL Normal <0.01 [facility] Comment on above: Order Comment: Speci men Type: BLOOD SPECIMENOrdering Facility: [facility] Address: [address] [place] [address] Performed By: #### 5 7021-8 ####[facility] LABIA [id number] [place] [address] Nucleated RBC/100 WBC (Bld) [Ratio] 0.0 /100 WBC Normal [facility] Comment on above: Order Comment: Speci men Type: BLOOD SPECIMENOrdering Facility: [facility] Address: [address] [place] [address] Performed By: #### 5 7021-8 ####[facility] LABCLIA [id number] [place] [address] Platelet mean volume (Bld) [Entitic vol] 8.1 fL Low 9.0-12.7 [facility] Comment on above: Order Comment: Speci men Type: BLOOD SPECIMENOrdering Facility: [facility] Address: [address] [place] [address] Performed By: #### 5 7021-8 ####[facility] LABCLIA [id number] [place] [address] Platelets (Bld) [#/Vol] 274 10*3/uL Normal 150-400 [facility] Comment on above: Order Comment: Speci men Type: BLOOD SPECIMENOrdering Facility: [facility] Address: [address] [place] [address] Performed By: #### 5 7021-8 ####[facility] LABCLIA [id number] [place] [address] RBC (Bld) [#/Vol] 3.92 10*6/uL Normal 3.90-5.20 [facility] Comment on above: Order Comment: Speci men Type: BLOOD SPECIMENOrdering Facility: [facility] Address: [address] [place] [address] Performed By: #### 5 7021-8 ####[facility] LABCLIA [id number] [place] [address] WBC (Bld) [#/Vol] 7.33 10*3/uL Normal 3.70-11.00 [facility] Comment on above: Order Comment: Speci men Type: BLOOD SPECIMENOrdering Facility: [facility] Address: [address] [place] [address] Performed By: #### 5 7021-8 ####[facility] LABCLIA [id number] [place] [address] CEA SerPl-mCncon 10-10-2023 Carcinoembryonic Ag [Mass/Vol] 2.0 ng/mL Normal <=2.9 [facility] Comment on above: Order Comment: Speci men Type: BLOOD SPECIMENOrdering Facility: [facility] Address: [address] [place] [address] Result Comment: Carc inoembryonic antigen test is used as an aid in monitoring response to treatment or recurrence in patients with established colorectal, breast, lung, prostatic, pancreatic, and ovarian carcinomas. Clinical correlation is required.The Carcinoembryonic antigen test was performed using the [employer] DXI paramagnetic particle chemiluminescent immunoassay method. Results obtained with different assay methods or kits cannot be used interchangeably. Performed By: #### 2 039-6 ####[facility] LABCLIA [id number] [place] [address] [place] CNOVon 10-10-2023 CNOV Normal [facility] CNOV Normal [facility] CNOVSPon 10-10-2023 CNOVSP Normal [facility] Comprehensive metabolic 2000 panelon 10-10-2023 Albumin [Mass/Vol] 4.3 g/dL 3.9 - 4.9 g/dL [facility] ALP [Catalytic activity/Vol] 103 U/L 34 - 123 U/L [facility] ALT [Catalytic activity/Vol] 15 U/L 7 - 38 U/L [facility] Anion gap [Moles/Vol] 12 mmol/L 9 - 18 mmol/L [facility] AST [Catalytic activity/Vol] 13 U/L 13 - 35 U/L [facility] Bilirubin [Mass/Vol] 0.2 mg/dL 0.2 - 1 .3 mg/dL [facility] Calcium [Mass/Vol] 9.3 mg/dL 8.5 - 10. 2 mg/dL [facility] Chloride [Moles/Vol] 114 mmol/L High 97 - 10 5 mmol/L [facility] CO2 [Moles/Vol] 22 mmol/L 22 - 30 mmol/L [facility] Creatinine [Mass/Vol] 0.70 mg/dL 0.58 - 0.96 mg/dL [facility] Estimated Glomerular Filtration Rate 93 mL/min/1.73m >=60 mL/min/1.7 3m [facility] Glucose [Mass/Vol] 114 mg/dL High 74 - 99 mg/dL [facility] Potassium [Moles/Vol] 4.2 mmol/L 3.7 - 5.1 mmol/L [facility] Protein [Mass/Vol] 6.6 g/dL 6.3 - 8.0 g/dL [facility] Sodium [Moles/Vol] 148 mmol/L High 136 - 144 mmol/L [facility] Urea nitrogen [Mass/Vol] 22 mg/dL High 7 - 21 mg/dL [facility] Albumin [Mass/Vol] 4.3 g/dL Normal 3.9-4.9 [facility] Comment on above: Order Comment: Speci men Type: BLOOD SPECIMENOrdering Facility: [facility] Address: [address] [place] [address] Performed By: #### 2 4323-8 ####[facility] LABCLIA [id number] [place] [address] ALP [Catalytic activity/Vol] 103 U/L Normal 34-123 [facility] Comment on above: Order Comment: Speci men Type: BLOOD SPECIMENOrdering Facility: [facility] Address: [address] [place] [address] Performed By: #### 2 4323-8 ####[facility] LABCLIA [id number] [place] [address] ALT [Catalytic activity/Vol] 15 U/L Normal 7-38 [facility] Comment on above: Order Comment: Speci men Type: BLOOD SPECIMENOrdering Facility: [facility] Address: [address] [place] [address] Performed By: #### 2 4323-8 ####[facility] LABCLIA [id number] [place] [address] Anion gap [Moles/Vol] 12 mmol/L Normal 9-18 [facility] Comment on above: Order Comment: Speci men Type: BLOOD SPECIMENOrdering Facility: [facility] Address: [address] [place] [address] Performed By: #### 2 4323-8 ####[facility] LABCLIA [id number] [place] [address] AST [Catalytic activity/Vol] 13 U/L Normal 13-35 [facility] Comment on above: Order Comment: Speci men Type: BLOOD SPECIMENOrdering Facility: [facility] Address: [address] [place] [address] Performed By: #### 2 4323-8 ####[facility] LABCLIA [id number] [place] [address] Bilirubin [Mass/Vol] 0.2 mg/dL Normal 0.2-1.3 [facility] Comment on above: Order Comment: Speci men Type: BLOOD SPECIMENOrdering Facility: [facility] Address: [address] [place] [address] Performed By: #### 2 4323-8 ####[facility] LABCLIA [id number] [place] [address] Calcium [Mass/Vol] 9.3 mg/dL Normal 8.5-10.2 [facility] Comment on above: Order Comment: Speci men Type: BLOOD SPECIMENOrdering Facility: [facility] Address: [address] [place] [address] Performed By: #### 2 4323-8 ####[facility] LABCLIA [id number] [place] [address] Chloride [Moles/Vol] 114 mmol/L High 97-105 [facility] Comment on above: Order Comment: Speci men Type: BLOOD SPECIMENOrdering Facility: [facility] Address: [address] [place], [place] [id number] Performed By: #### 2 4323-8 ####[facility] LABCLIA [id number] [place] [address] CO2 [Moles/Vol] 22 mmol/L Normal 22-30 [facility] Comment on above: Order Comment: Speci men Type: BLOOD SPECIMENOrdering Facility: [facility] Address: [address] [id number] Performed By: #### 2 4323-8 ####[facility] LABCLIA [id number] [place] [address] Creatinine [Mass/Vol] 0.70 mg/dL Normal 0.58-0.96 [facility] Comment on above: Order Comment: Speci men Type: BLOOD SPECIMENOrdering Facility: [facility] Address: [address] [place] [address] Performed By: #### 2 4323-8 ####[facility] LABCLIA [id number] [place] [address] Creatinine and Glomerular filtration rate.predicted panel (S/P/Bld) 93 mL/min/1.73m??? Normal >=60 [facility] Comment on above: Order Comment: Speci men Type: BLOOD SPECIMENOrdering Facility: [facility] Address: [address] [place] [address] Result Comment: Farhana mated Glomerular Filtration Rate (eGFR) is calculated using the 2020 CKD-EPI creatinine equation. This equation utilizes serum creatinine, sex, and age as parameters. The creatinine assay has traceable calibration to isotope dilution-mass spectrometry. Refer to KDIGO guidelines for clinical interpretation. In patients with unstable renal function, e.g. those with acute kidney injury, the eGFR may not accurately reflect actual GFR. Performed By: #### 2 4323-8 ####[facility] LABCLIA [id number] [place] [address] Glucose [Mass/Vol] 114 mg/dL High 74-99 [facility] Comment on above: Order Comment: Moyi tatiana Type: BLOOD SPECIMENOrdering Facility: [facility] Address: [address] [id number] Result Comment: The [place] Diabetes Association (ADA) provides guidance for cutoff values for fasting glucose and random glucose. The ADA defines fasting as no caloric intake for at least 8 hours. Fasting plasma glucose results between 100 to 125 mg/dL indicate increased risk for diabetes (prediabetes).Fasting plasma glucose results greater than or equal to 126 mg/dL meet the criteria for diagnosis of diabetes. In the absence of unequivocal hyperglycemia, results should be confirmed by repeat testing. In a patient with classic symptoms of hyperglycemia or hyperglycemic crisis, random plasma glucose results greater than or equal to 200 mg/dL meet the criteria for diagnosis of diabetes.Reference: Standards of Medical Care in Diabetes 2016, [place] [employer]. Diabetes Care. 2016.39(Suppl 1). Performed By: #### 2 4323-8 ####[facility] LABCLIA [id number] [place] [address] Potassium [Moles/Vol] 4.2 mmol/L Normal 3.7-5.1 [facility] Comment on above: Order Comment: Speci men Type: BLOOD SPECIMENOrdering Facility: [facility] Address: [address] [place] [address] Performed By: #### 2 4323-8 ####[facility] LABCLIA [id number] [place] [address] Protein [Mass/Vol] 6.6 g/dL Normal 6.3-8.0 [facility] Comment on above: Order Comment: Speci men Type: BLOOD SPECIMENOrdering Facility: [facility] Address: [address] [place] [address] Performed By: #### 2 4323-8 ####[facility] LABCLIA [id number] [place] [address] Sodium [Moles/Vol] 148 mmol/L High 136-144 [facility] Comment on above: Order Comment: Speci men Type: BLOOD SPECIMENOrdering Facility: [facility] Address: [address] [place] [address] Performed By: #### 2 4323-8 ####[facility] LABCLIA [id number] [place] [address] Urea nitrogen [Mass/Vol] 22 mg/dL High 7-21 [facility] Comment on above: Order Comment: Speci men Type: BLOOD SPECIMENOrdering Facility: [facility] Address: [address] [place] [address] Performed By: #### 2 4323-8 ####[facility] LABCLIA [id number] [place] [address] Eosinophils/100 WBC Auto (Bl d)on 10-10-2023 Eosinophils/100 WBC (Bld) 7.1 % [facility] Erythrocyte distribution wid th Auto (RBC) [Ratio]on 10-10-2023 Erythrocyte distribution width (RBC) [Ratio] 15.2 % 11.5-15.0 [facility] Hematocrit Auto (Bld) [Volum e fraction]on 10-10-2023 Hematocrit (Bld) [Volume fraction] 35.1 % 36.0-46.0 [facility] Hemoglobin [Mass/volume] in Bloodon 10-10-2023 Hemoglobin (Bld) [Mass/Vol] 11.7 g/dL 11.5-15.5 [facility] Laboratory - Chemistry and C hemistry - challengeon 10-10-2023 Albumin [Mass/Vol] 4.3 g/dL 3.9-4.9 [facility] ALP [Catalytic activity/Vol] 103 U/L 34-123 [facility] ALT [Catalytic activity/Vol] 15 U/L 7-38 [facility] AST [Catalytic activity/Vol] 13 U/L 13-35 [facility] Bilirubin [Mass/Vol] 0.2 mg/dL 0.2-1.3 [facility] Calcium [Mass/Vol] 9.3 mg/dL 8.5-10.2 [facility] Chloride [Moles/Vol] 114 mmol/L 97-105 [facility] CO2 [Moles/Vol] 22 mmol/L 22-30 [facility] Creatinine [Mass/Vol] 0.70 mg/dL 0.58-0.96 [facility] Glucose [Mass/Vol] 114 mg/dL 74-99 [facility] Comment on above: The [place] Diabete s Association (ADA) provides guidance for cutoff values for fasting glucose and random glucose. The ADA defines fasting as no caloric intake for at least 8 hours. Fasting plasma glucose results between 100 to 125 mg/dL indicate increased risk for diabetes (prediabetes).Fasting plasma glucose results greater than or equal to 126 mg/dL meet the criteria for diagnosis of diabetes. In the absence of unequivocal hyperglycemia, results should be confirmed by repeat testing. In a patient with classic symptoms of hyperglycemia or hyperglycemic crisis, random plasma glucose results greater than or equal to 200 mg/dL meet the criteria for diagnosis of diabetes.Reference: Standards of Medical Care in Diabetes 2016, [place] [employer]. Diabetes Care. 2016.39(Suppl 1). Potassium [Moles/Vol] 4.2 mmol/L 3.7-5.1 [facility] Sodium [Moles/Vol] 148 mmol/L 136-144 [facility] Urea nitrogen [Mass/Vol] 22 mg/dL 01-27 [facility] Laboratory - Hematology and Cell countson 10-10-2023 Eosinophils (Bld) [#/Vol] 0.52 10*3/uL <0.46 [facility] Immature granulocytes (Bld) [#/Vol] 0.04 10*3/uL <0.10 [facility] Immature granulocytes/100 WBC (Bld) 0.5 % [facility] Leukocytes [#/volume] correc french for nucleated erythrocytes in Blood by Automated counon 10-10-2023 WBC corrected for nucl RBC Auto (Bld) [#/Vol] 7.33 k/uL 3.70-11.00 [facility] Lymphocytes Auto (Bld) [#/Vo l]on 10-10-2023 Lymphocytes (Bld) [#/Vol] 0.62 10*3/uL 1.00-4.00 [facility] Lymphocytes/100 WBC Auto (Bl d)on 10-10-2023 Lymphocytes/100 WBC (Bld) 8.5 % [facility] MCH Auto (RBC) [Entitic mass ]on 10-10-2023 MCH (RBC) [Entitic mass] 29.8 pg 26.0-34.0 [facility] MCHC Auto (RBC) [Mass/Vol]on 10-10-2023 MCHC (RBC) [Mass/Vol] 33.3 g/dL 30.5-36.0 [facility] MCV Auto (RBC) [Entitic vol] on 10-10-2023 MCV (RBC) [Entitic vol] 89.5 fL 80.0-100.0 [facility] MISC SEND OUT TST 1on 2023 MISC SCAN TEST RESULTS 1 View results in Scanned Documents link when available Normal [facility] Comment on above: Order Comment: Speci men Type: BLOOD SPECIMENOrdering Facility: [facility] Address: [address] [place] [address] Performed By: #### M ISC1 ####NON-INTERFACED REF LABSCLIA SEE SCANNED RESULTS REFERRAL LAB 1 Neel Normal [facility] Comment on above: Order Comment: Speci men Type: BLOOD SPECIMENOrdering Facility: [facility] Address: [address] [place] [address] Performed By: #### M ISC1 ####NON-INTERFACED REF LABSCLIA SEE SCANNED RESULTS TEST 1 Signatera Normal [facility] Comment on above: Order Comment: Speci men Type: BLOOD SPECIMENOrdering Facility: [facility] Address: [address] [place] [address] Performed By: #### M ISC1 ####NON-INTERFACED REF LABSCLIA SEE SCANNED RESULTS Monocytes Auto (Bld) [#/Vol] on 10-10-2023 Monocytes (Bld) [#/Vol] 0.62 10*3/uL <0.87 [facility] Monocytes/100 WBC Auto (Bld) on 10-10-2023 Monocytes/100 WBC (Bld) 8.5 % [facility] Neutrophils Auto (Bld) [#/Vo l]on 10-10-2023 Neutrophils (Bld) [#/Vol] 5.49 10*3/uL 1.45-7.50 [facility] Neutrophils/100 WBC Auto (Bl d)on 10-10-2023 Neutrophils/100 WBC (Bld) 74.9 % [facility] No Panel Informationon 10-09 Estimated GFR (CKD-EPI) 93 mL/min/1.73m??? >=60 [facility] Comment on above: Estimated Glomerular Filtration Rate (eGFR) is calculated using the 2020 CKD-EPI creatinine equation. This equation utilizes serum creatinine, sex, and age as parameters. The creatinine assay has traceable calibration to isotope dilution-mass spectrometry. Refer to KDIGO guidelines for clinical interpretation. In patients with unstable renal function, e.g. those with acute kidney injury, the eGFR may not accurately reflect actual GFR. Nucleated RBC Auto (Bld) [#/ Vol]on 10-10-2023 Nucleated RBC (Bld) [#/Vol] 10*3/uL <0.01 [facility] Nucleated erythrocytes [Pres ence] in Blood by Automated counton 10-10-2023 Nucleated RBC Auto Ql (Bld) 0.0 /100{WBC} [facility] Platelet mean volume Auto (B ld) [Entitic vol]on 10-10-2023 Platelet mean volume (Bld) [Entitic vol] 8.1 fL 9.0-12.7 [facility] Platelets Auto (Bld) [#/Vol] on 10-10-2023 Platelets (Bld) [#/Vol] 274 10*3/uL 150-400 [facility] Protein [Mass/volume] in Ser um or Plasmaon 10-10-2023 Protein [Mass/Vol] 6.6 g/dL 6.3-8.0 [facility] RBC Auto (Bld) [#/Vol]on RBC (Bld) [#/Vol] 3.92 10*6/uL 3.90-5.20 [facility] Serum or plasma anion gap de terminationon 10-10-2023 Anion gap [Moles/Vol] 12 mmol/L 9-18 [facility] Basic Metabolic Panelon 09-08 Anion gap [Moles/Vol] 8.5 mmol/L Normal 6.0-15.0 [facility] Comment on above: Performed By: #### L YTES, CREAT, CBC, BUN #### [facility] [address] Calcium [Mass/Vol] 8.7 mg/dL Normal 8.6-10.3 [facility] Comment on above: Performed By: #### L YTES, CREAT, CBC, BUN #### [place] [address] [place] Chloride [Moles/Vol] 108 mmol/L High 98-107 [facility] Comment on above: Performed By: #### L YTES, CREAT, CBC, BUN #### [address] CO2 [Moles/Vol] 29.6 mmol/L Normal 21.0-31.0 [facility] Comment on above: Performed By: #### L YTES, CREAT, CBC, BUN #### [address] Creatinine [Mass/Vol] 0.66 mg/dL Normal 0.60-1.20 [facility] Comment on above: Performed By: #### L YTES, CREAT, CBC, BUN #### [place] [address] [place] Creatinine Clr Calc Pharmacy 61.17 Normal [facility] Comment on above: Result Comment: PERF ORMED BY: [place] [address] PATHOLOGIST GASOLINE ATTENDANT LYUDMILA GIANG M.D. Performed By: #### L YTES, CREAT, CBC, BUN #### [address] GFR/1.73 sq M.predicted MDRD (S/P/Bld) [Vol rate/Area] mL/min/{1.73_m2} Normal [facility] Comment on above: Performed By: #### L YTES, CREAT, CBC, BUN #### [place] [address] [place] Glucose [Mass/Vol] 93 mg/dL Normal 70-100 [facility] Comment on above: Result Comment: [employer] Glucose Reference Range is dependent on time and content of last meal. Glucose of more than 200 mg/dL in a nonstressed, ambulatory subject supports the diagnosis of Diabetes Mellitus. ADA recommended reference range Performed By: #### L YTES, CREAT, CBC, BUN #### [address] [place] [address] [place] Potassium [Moles/Vol] 4.1 mmol/L Normal 3.5-5.1 [facility] Comment on above: Performed By: #### L YTES, CREAT, CBC, BUN #### [facility] [address] [place] [address] [place] Sodium [Moles/Vol] 142 mmol/L Normal 136-145 [facility] Comment on above: Performed By: #### L YTES, CREAT, CBC, BUN #### [facility] [address] [place] [address] [place] Urea nitrogen [Mass/Vol] 10 mg/dL Normal 7-25 [facility] Comment on above: Performed By: #### L YTES, CREAT, CBC, BUN #### [facility] [address] Calcium [Mass/volume] in Ser um or PlasmaOrdered By: Miguel Ángel Delgadillo on 10-01-2023 Calcium [Mass/Vol] 8.7 mg/dL 8.6-10.3 [facility] Carbon dioxide, total [Moles /volume] in Serum or PlasmaOrdered By: Miguel Ángel Delgadillo on 10-01-2023 CO2 [Moles/Vol] 29.6 mmol/L 21.0-31.0 [facility] Chloride [Moles/volume] in S jeevan or PlasmaOrdered By: Miguel Ángel Delgadillo on 10-01-2023 Chloride [Moles/Vol] 108 mmol/L 98-107 [facility] Creatinine [Mass/volume] in Serum or PlasmaOrdered By: Miguel Ángel Delgadillo on 10-01-2023 Creatinine [Mass/Vol] 0.66 mg/dL 0.60-1.20 [facility] Erythrocyte distribution wid th Auto (RBC) [Ratio]Ordered By: Miguel Ángel Delgadillo on 10-01-2023 Erythrocyte distribution width (RBC) [Ratio] 16.1 % 11.9-15.3 [facility] Glucose [Mass/volume] in Ser um or PlasmaOrdered By: Miguel Ángel Delgadillo on 10-01-2023 Glucose [Mass/Vol] 93 mg/dL 70-100 [facility] Comment on above: ADA recommended refe rence rangeRandom Glucose Reference Range is dependent on time and content of last meal. Glucose of more than 200 mg/dL in a nonstressed, ambulatory subject supports the diagnosis of Diabetes Mellitus. Hematocrit Auto (Bld) [Volum e fraction]Ordered By: Miguel Ángel Delgadillo on 10-01-2023 Hematocrit (Bld) [Volume fraction] 30.5 % 34.0-46.4 [facility] Hemoglobin [Mass/volume] in BloodOrdered By: Miguel Ángel Delgadillo on 10-01-2023 Hemoglobin (Bld) [Mass/Vol] 10.3 g/dL 11.8-15.4 [facility] Hemogram CBC Without Diffon 10-01-2023 Erythrocyte distribution width (RBC) [Ratio] 16.1 % High 11.9-15.3 [facility] Comment on above: Performed By: #### L WARREN AGUIRREAT, CBC, BUN #### [address] Hematocrit (Bld) [Volume fraction] 30.5 % Low 34.0-46.4 [facility] Comment on above: Performed By: #### L WARREN AGUIRREAT, CBC, BUN #### [address] Hemoglobin (Bld) [Mass/Vol] 10.3 g/dL Low 11.8-15.4 [facility] Comment on above: Performed By: #### L TIMOTHY CREAT, CBC, BUN #### [place] [address] [place] MCH (RBC) [Entitic mass] 29.8 pg Normal 24.7-34.3 [facility] Comment on above: Performed By: #### L TIMOTHY CREAT, CBC, BUN #### [address] MCV (RBC) [Entitic vol] 87.8 fL Normal 80-100 [facility] Comment on above: Performed By: #### L YTES, CREAT, CBC, BUN #### [address] Mean Corpuscular HGB Conc 33.9 g/dL Normal 32.0-35.0 [facility] Comment on above: Performed By: #### L YTES, CREAT, CBC, BUN #### [address] Platelet mean volume (Bld) [Entitic vol] 6.8 fL Normal 6.3-10.7 [facility] Comment on above: Result Comment: PERF ORMED BY: [place] [address] PATHOLOGIST GASOLINE ATTENDANT LYUDMILA GIANG M.D. Performed By: #### L YTES, CREAT, CBC, BUN #### [address] Platelets (Bld) [#/Vol] 257 10*3/uL Normal 150-450 [facility] Comment on above: Performed By: #### L YTES, CREAT, CBC, BUN #### [address] RBC (Bld) [#/Vol] 3.47 10*6/uL Low 3.60-5.00 [facility] Comment on above: Performed By: #### L YTES, CREAT, CBC, BUN #### [address] WBC (Bld) [#/Vol] 4.9 10*3/uL Normal 3.8-11.6 [facility] Comment on above: Performed By: #### L YTES, CREAT, CBC, BUN #### [address] Leukocytes [#/volume] correc french for nucleated erythrocytes in Blood by Automated counOrdered By: Miguel Ángel Delgadillo on 10-01-2023 WBC corrected for nucl RBC Auto (Bld) [#/Vol] 4.9 10*3/uL 3.8-11.6 [facility] MCH Auto (RBC) [Entitic mass ]Ordered By: Miguel Ángel Delgadillo on 10-01-2023 MCH (RBC) [Entitic mass] 29.8 pg 24.7-34.3 [facility] MCHC Auto (RBC) [Mass/Vol]Or dered By: Miguel Ángel Delgadillo on 10-01-2023 MCHC (RBC) [Mass/Vol] 33.9 g/dL 32.0-35.0 [facility] MCV Auto (RBC) [Entitic vol] Ordered By: Miguel Ángel Delgadillo on 10-01-2023 MCV (RBC) [Entitic vol] 87.8 fL 80-100 [facility] No Panel InformationOrdered By: Miguel Ángel Delgadillo on 10-01-2023 Estimated GFR (CKD-EPI) > 60.0 mL/Min [facility] Creatinine Clearance (Chem 61.17 [facility] Platelet mean volume Auto (B ld) [Entitic vol]Ordered By: Miguel Ángel Delgadillo on 10-01-2023 Platelet mean volume (Bld) [Entitic vol] 6.8 fL 6.3-10.7 [facility] Platelets Auto (Bld) [#/Vol] Ordered By: Miguel Ángel Delgadillo on 10-01-2023 Platelets (Bld) [#/Vol] 257 10*3/uL 150-450 [facility] Potassium [Moles/volume] in Serum or PlasmaOrdered By: Miguel Ángel Delgadillo on 10-01-2023 Potassium [Moles/Vol] 4.1 mmol/L 3.5-5.1 [facility] RBC Auto (Bld) [#/Vol]Ordere d By: Miguel Ángel Delgadillo on 10-01-2023 RBC (Bld) [#/Vol] 3.47 10*6/uL 3.60-5.00 [facility] Serum or plasma anion gap de terminationOrdered By: Miguel Ángel Delgadillo on 10-01-2023 Anion gap [Moles/Vol] 8.5 mmol/L 6.0-15.0 [facility] Sodium [Moles/volume] in Ser um or PlasmaOrdered By: Miguel Ángel Delgadillo on 10-01-2023 Sodium [Moles/Vol] 142 mmol/L 136-145 [facility] Urea nitrogen [Mass/volume] in Serum or PlasmaOrdered By: Miguel Ángel Delgadillo on 10-01-2023 Urea nitrogen [Mass/Vol] 10 mg/dL 01-31 [facility] Alanine aminotransferase [En zymatic activity/volume] in Serum or PlasmaOrdered By: Patrice Gomez on 09-30-2023 ALT [Catalytic activity/Vol] 15 U/L [facility] Albumin [Mass/volume] in Ser um or Plasma by Bromocresol green (BCG) dye binding methoOrdered By: Patrice Gomez on 09-30-2023 Albumin BCG dye [Mass/Vol] 4.1 g/dL 3.5-5.7 [facility] Alkaline phosphatase [Enzyma tic activity/volume] in Serum or PlasmaOrdered By: Patrice Gomez on 09-30-2023 ALP [Catalytic activity/Vol] 68 U/L 34-104 [facility] Aspartate aminotransferase [ Enzymatic activity/volume] in Serum or PlasmaOrdered By: Patrice Gomez on 09-30-2023 AST [Catalytic activity/Vol] 19 U/L 13-39 [facility] Basic Metabolic Panelon 09-08 Anion gap [Moles/Vol] 12.3 mmol/L Normal 6.0-15.0 [facility] Comment on above: Performed By: #### L YTES, CREAT, CBC, BUN #### [facility] [address] [place] [address] [place] Calcium [Mass/Vol] 9.8 mg/dL Normal 8.6-10.3 [facility] Comment on above: Performed By: #### L YTES, CREAT, CBC, BUN #### [facility] [address] [place] [address] [place] Chloride [Moles/Vol] 105 mmol/L Normal 98-107 [facility] Comment on above: Performed By: #### L YTES, CREAT, CBC, BUN #### [facility] [address] [place] [id number] [place] CO2 [Moles/Vol] 25.6 mmol/L Normal 21.0-31.0 [facility] Comment on above: Performed By: #### L WARREN AGUIRREAT, CBC, BUN #### [address] Creatinine [Mass/Vol] 0.72 mg/dL Normal 0.60-1.20 [facility] Comment on above: Performed By: #### L TIMOTHY CREAT, CBC, BUN #### [place] [address] [place] Creatinine Clr Calc Pharmacy 56.50 Normal [facility] Comment on above: Performed By: #### L GHULAM AGUIRRE, CBC, BUN #### [place] [address] [place] GFR/1.73 sq M.predicted MDRD (S/P/Bld) [Vol rate/Area] mL/min/{1.73_m2} Normal [facility] Comment on above: Performed By: #### L TIMOTHY CREAT, CBC, BUN #### [address] Glucose [Mass/Vol] 111 mg/dL High 70-100 [facility] Comment on above: Result Comment: [employer] Glucose Reference Range is dependent on time and content of last meal. Glucose of more than 200 mg/dL in a nonstressed, ambulatory subject supports the diagnosis of Diabetes Mellitus. ADA recommended reference range Performed By: #### L TIMOTHY CREAT, CBC, BUN #### [address] Potassium [Moles/Vol] 3.9 mmol/L Normal 3.5-5.1 [facility] Comment on above: Performed By: #### L GHULAM AGUIRRE, CBC, BUN #### [place] [address] [place] Sodium [Moles/Vol] 139 mmol/L Normal 136-145 [facility] Comment on above: Performed By: #### L TIMOTHY CREAT, CBC, BUN #### [address] [place] [address] [facility] Urea nitrogen [Mass/Vol] 21 mg/dL Normal 7-25 [facility] Comment on above: Performed By: #### L YTES, CREAT, CBC, BUN #### [address] Basophils Auto (Bld) [#/Vol] Ordered By: Patrice Gomez on 09-30-2023 Basophils (Bld) [#/Vol] 0.1 10*3/uL 0.0-0.2 [facility] Basophils/100 WBC Auto (Bld) Ordered By: Patrice Gomez on 09-30-2023 Basophils/100 WBC (Bld) 1.2 % . [facility] Bilirubin.direct [Mass/volum e] in Serum or PlasmaOrdered By: Patrice Gomez on 09-30-2023 Bilirubin.direct [Mass/Vol] 0.10 mg/dL 0.03-0.18 [facility] Bilirubin.total [Mass/volume ] in Serum or PlasmaOrdered By: Patrice Gomez on 09-30-2023 Bilirubin [Mass/Vol] 0.5 mg/dL 0.3-1.0 [facility] CT abdomen pelvis wo conon 0 09-30-2023 CT abdomen pelvis wo con [facility] [place] [address] CT Scan Report Signed Patient: Evan Gill MR#: [id number] 89 : 1955 Acct:[id number] Age/Sex: 68 / F ADM Date: 09/30/23 Loc: Room: [address] [place] [address] Type: ADM IN Attending Dr: Tim Garduno MD Copies to: DO Tim Starks MD Ordering Provider: Patrice Gomez DO Date of Service: 09/30/23 CT/CT abdomen pelvis wo con: r/o sbo, n, decreased output CT Abdomen and Pelvis withoutcontrast TECHNIQUE: Axial imaging with 2-D reconstruction. . The CT exam was performed using one or more the following dose reduction techniques: Automated exposure control, adjustment of the MA and/or Kv according to patient size, or use of the iterative reconstruction technique. COMPARISON: 02/26/2023 History: Upper mid abdominal pain for one day. Partial colectomy with ostomy. Decreased output. LIMITATIONS: None LOWER THORAX Unremarkable LIVER: Unremarkable GALLBLADDER: Cholecystectomy clips identified. BILE DUCTS: Ectatic common bile duct. SPLEEN: Unremarkable PANCREAS: Unremarkable ADRENAL GLANDS: Unremarkable KIDNEYS:Unremarkable AORTA: No abdominal aortic aneurysm identified. RETROPERITONEUM: No significant retroperitoneal abnormalities identified. MESENTERY:Unremarkable SMALL BOWEL: The multiple dilated small bowel loops throughout the abdomen and pelvis concerning for small bowel obstruction. Decompressed this distal small bowel loop in the right lower quadrant. Presence of impacted stool at the level of the double barrel right lower quadrant ostomy contributing to obstruction. The presence of decompressed small bowel segment in parastomal hernia. This is seen with image 3 through 107. Air-fluid levels in dilated small bowel loops. Dilatation of bowel loops up to 2.9 cm. Stomach distended with fluid and air. APPENDIX: The appendix is not seen. No pericecal inflammatory changes identified. COLON: Rectosigmoid anastomosis present. URINARY BLADDER: Urinary bladder is unremarkable. REPRODUCTIVE SYSTEM: Reproductive structures are unremarkable. PNEUMOPERITONEUM: None PERITONEAL FLUID:None BONY STRUCTURES: Lumbar degeneration. 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 Moderate to severe bilateral L5-S1 neural foraminal stenosis. Mild scoliosis. ABDOMINAL WALL: Small fat-containing umbilical hernia. CT/CT abdomen pelvis wo con IMPRESSION: Dilated proximal small bowel loop with air-fluid levels. Impacted stool loop of bowel at the ostomy site with distal nondistended small bowel. Likely correlates with site of obstruction. Impression dictated by: Cameron Lares M.D.09/30/2023 9:24 AM Dictation Location: [place] [address] Transcribed By: [facility] 09/30/23923 Dictated By: Cameron Lares DO 09/30/2315 Signed By: 09/30/23923 Normal [facility] Calcium [Mass/volume] in Ser um or PlasmaOrdered By: Patrice Gomez on 09-30-2023 Calcium [Mass/Vol] 9.8 mg/dL 8.6-10.3 [facility] Carbon dioxide, total [Moles /volume] in Serum or PlasmaOrdered By: Patrice Gomez on 09-30-2023 CO2 [Moles/Vol] 25.6 mmol/L 21.0-31.0 [facility] Chloride [Moles/volume] in S jeevan or PlasmaOrdered By: Patrice Gomez on 09-30-2023 Chloride [Moles/Vol] 105 mmol/L 98-107 [facility] Complete Blood Count Auto Di ffon 09-30-2023 Basophils (Bld) [#/Vol] 0.1 10*3/uL Normal 0.0-0.2 [facility] Comment on above: Result Comment: PERF ORMED BY: [place] [address] PATHOLOGIST GASOLINE ATTENDANT LYUDMILA GIANG M.D. Performed By: #### L YTES, CREAT, CBC, BUN #### [address] Basophils/100 WBC (Bld) 1.2 % Normal . [facility] Comment on above: Performed By: #### L YTES, CREAT, CBC, BUN #### [address] Eosinophils (Bld) [#/Vol] 0.7 10*3/uL High 0.0-0.45 [facility] Comment on above: Performed By: #### L YTES, CREAT, CBC, BUN #### [address] Eosinophils/100 WBC (Bld) 7.3 % Normal . [facility] Comment on above: Performed By: #### L YTES, CREAT, CBC, BUN #### [address] Erythrocyte distribution width (RBC) [Ratio] 16.4 % High 11.9-15.3 [facility] Comment on above: Performed By: #### L YTES, CREAT, CBC, BUN #### [address] Hematocrit (Bld) [Volume fraction] 38.1 % Normal 34.0-46.4 [facility] Comment on above: Performed By: #### L YTES, CREAT, CBC, BUN #### [address] Hemoglobin (Bld) [Mass/Vol] 12.7 g/dL Normal 11.8-15.4 [facility] Comment on above: Performed By: #### L YTES, CREAT, CBC, BUN #### [address] Lymphocytes (Bld) [#/Vol] 1.1 10*3/uL Normal 1.00-4.8 [facility] Comment on above: Performed By: #### L YTES, CREAT, CBC, BUN #### [address] Lymphocytes/100 WBC (Bld) 12.0 % Normal . [facility] Comment on above: Performed By: #### L YTES, CREAT, CBC, BUN #### [address] MCH (RBC) [Entitic mass] 29.2 pg Normal 24.7-34.3 [facility] Comment on above: Performed By: #### L YTKEON CREAT, CBC, BUN #### [address] MCV (RBC) [Entitic vol] 87.7 fL Normal 80-100 [facility] Comment on above: Performed By: #### L YTES, CREAT, CBC, BUN #### [address] Mean Corpuscular HGB Conc 33.3 g/dL Normal 32.0-35.0 [facility] Comment on above: Performed By: #### L YTES, CREAT, CBC, BUN #### [address] Monocytes (Bld) [#/Vol] 0.8 10*3/uL Normal 0.0-0.8 [facility] Comment on above: Performed By: #### L YTES, CREAT, CBC, BUN #### [place] [address] [place] Monocytes/100 WBC (Bld) 15.40 % Normal 0.00-20.00 [facility] Comment on above: Performed By: #### L YTES, CREAT, CBC, BUN #### [place] [address] [place] Monocytes/100 WBC (Bld) 8.0 % Normal . [facility] Comment on above: Performed By: #### L YTES, CREAT, CBC, BUN #### [address] Neutrophils (Bld) [#/Vol] 6.8 10*3/uL Normal 1.8-7.7 [facility] Comment on above: Performed By: #### L YTES, CREAT, CBC, BUN #### [place] [address] [place] Neutrophils/100 WBC (Bld) 71.5 % Normal . [facility] Comment on above: Performed By: #### L YTES, CREAT, CBC, BUN #### [place] [address] [place] NRBC% 0.1 /100{WBC} Normal 0-0.5 [facility] Comment on above: Performed By: #### L YTES, CREAT, CBC, BUN #### [place] [address] [place] Platelet mean volume (Bld) [Entitic vol] 6.6 fL Normal 6.3-10.7 [facility] Comment on above: Performed By: #### L YTES, CREAT, CBC, BUN #### [place] [address] [place] Platelets (Bld) [#/Vol] 333 10*3/uL Normal 150-450 [facility] Comment on above: Performed By: #### L YTES, CREAT, CBC, BUN #### [place] [address] [place] RBC (Bld) [#/Vol] 4.35 10*6/uL Normal 3.60-5.00 [facility] Comment on above: Performed By: #### L YTES, CREAT, CBC, BUN #### [facility] [address] WBC (Bld) [#/Vol] 9.5 10*3/uL Normal 3.8-11.6 [facility] Comment on above: Performed By: #### L YTES, CREAT, CBC, BUN #### [facility] [address] Creatinine [Mass/volume] in Serum or PlasmaOrdered By: Patrice Gomez on 09-30-2023 Creatinine [Mass/Vol] 0.72 mg/dL 0.60-1.20 [facility] Eosinophils Auto (Bld) [#/Vo l]Ordered By: Patrice Gomez on 09-30-2023 Eosinophils (Bld) [#/Vol] 0.7 10*3/uL 0.0-0.45 [facility] Eosinophils/100 WBC Auto (Bl d)Ordered By: Patrice Gomez on 09-30-2023 Eosinophils/100 WBC (Bld) 7.3 % . [facility] Erythrocyte distribution wid th Auto (RBC) [Ratio]Ordered By: Patrice Gomez on 09-30-2023 Erythrocyte distribution width (RBC) [Ratio] 16.4 % 11.9-15.3 [facility] Globulin Calc (S) [Mass/Vol] Ordered By: Patrice Gomez on 09-30-2023 Globulin (S) [Mass/Vol] 2.6 g/dL [facility] Glucose [Mass/volume] in Ser um or PlasmaOrdered By: Patrice Gomez on 09-30-2023 Glucose [Mass/Vol] 111 mg/dL 70-100 [facility] Comment on above: ADA recommended refe rence rangeRandom Glucose Reference Range is dependent on time and content of last meal. Glucose of more than 200 mg/dL in a nonstressed, ambulatory subject supports the diagnosis of Diabetes Mellitus. Hematocrit Auto (Bld) [Volum e fraction]Ordered By: Patrice Racheal on 09-30-2023 Hematocrit (Bld) [Volume fraction] 38.1 % 34.0-46.4 [facility] Hemoglobin [Mass/volume] in BloodOrdered By: Patrice Racheal on 09-30-2023 Hemoglobin (Bld) [Mass/Vol] 12.7 g/dL 11.8-15.4 [facility] Hepatic Panelon 09-30-2023 Albumin [Mass/Vol] 4.1 g/dL Normal 3.5-5.7 [facility] Comment on above: Performed By: #### L YTES, CREAT, CBC, BUN #### [facility] [address] Albumin/Globulin [Mass ratio] 1.6 {ratio} Normal [facility] Comment on above: Performed By: #### L YTES, CREAT, CBC, BUN #### [facility] [address] [place] [id number] [place] ALP [Catalytic activity/Vol] 68 U/L Normal 34-104 [facility] Comment on above: Performed By: #### L YTES, CREAT, CBC, BUN #### [facility] [address] [place] [id number] [place] ALT [Catalytic activity/Vol] 15 U/L Normal 7-52 [facility] Comment on above: Performed By: #### L YTES, CREAT, CBC, BUN #### [facility] [address] [place] [id number] [place] AST [Catalytic activity/Vol] 19 U/L Normal 13-39 [facility] Comment on above: Performed By: #### L YTES, CREAT, CBC, BUN #### [facility] [address] [place] [id number] [place] Bilirubin [Mass/Vol] 0.5 mg/dL Normal 0.3-1.0 [facility] Comment on above: Performed By: #### L YTES, CREAT, CBC, BUN #### [facility] [address] [place] [id number] [place] Bilirubin,Indirect 0.4 mg/dL Normal [facility] Comment on above: Performed By: #### L YTES, CREAT, CBC, BUN #### [address] Bilirubin.indirect [Mass/Vol] 0.10 mg/dL Normal 0.03-0.18 [facility] Comment on above: Performed By: #### L YTES, CREAT, CBC, BUN #### [address] Globulin (S) [Mass/Vol] 2.6 g/dL Normal [facility] Comment on above: Performed By: #### L YTES, CREAT, CBC, BUN #### [address] Protein [Mass/Vol] 6.7 g/dL Normal 6.4-8.9 [facility] Comment on above: Performed By: #### L YTES, CREAT, CBC, BUN #### [address] Leukocytes [#/volume] correc french for nucleated erythrocytes in Blood by Automated counOrdered By: Patrice Gomez on 09-30-2023 WBC corrected for nucl RBC Auto (Bld) [#/Vol] 9.5 10*3/uL 3.8-11.6 [facility] Lipaseon 09-30-2023 Lipase [Catalytic activity/Vol] 5.0 U/L Low 11.0-82.0 [facility] Comment on above: Result Comment: PERF ORMED BY: [place] [address] PATHOLOGIST GASOLINE ATTENDANT LYUDMILA GIANG M.D. Performed By: #### L YTES, CREAT, CBC, BUN #### [address] Lipase [Enzymatic activity/v olume] in Serum or PlasmaOrdered By: Patrice Gomez on 09-30-2023 Lipase [Catalytic activity/Vol] 5.0 U/L 11.0-82.0 [facility] Lymphocytes Auto (Bld) [#/Vo l]Ordered By: Patrice Gomez on 09-30-2023 Lymphocytes (Bld) [#/Vol] 1.1 10*3/uL 1.00-4.8 [facility] Lymphocytes/100 WBC Auto (Bl d)Ordered By: Patrice Gomez on 09-30-2023 Lymphocytes/100 WBC (Bld) 12.0 % . [facility] MCH Auto (RBC) [Entitic mass ]Ordered By: Patrice Gomez on 09-30-2023 MCH (RBC) [Entitic mass] 29.2 pg 24.7-34.3 [facility] MCHC Auto (RBC) [Mass/Vol]Or dered By: Patrice Gomez on 09-30-2023 MCHC (RBC) [Mass/Vol] 33.3 g/dL 32.0-35.0 [facility] MCV Auto (RBC) [Entitic vol] Ordered By: Patrice Gomez on 09-30-2023 MCV (RBC) [Entitic vol] 87.7 fL 80-100 [facility] Monocyte distribution width [Entitic volume] in Blood by AutomatedOrdered By: Patrice Gomez on 09-30-2023 Monocyte distribution width Auto (Bld) [Entitic vol] 15.40 % 0.00-20.00 [facility] Monocytes Auto (Bld) [#/Vol] Ordered By: Patrice Gomez on 09-30-2023 Monocytes (Bld) [#/Vol] 0.8 10*3/uL 0.0-0.8 [facility] Monocytes/100 WBC Auto (Bld) Ordered By: Patrice Gomez on 09-30-2023 Monocytes/100 WBC (Bld) 8.0 % . [facility] Neutrophils Auto (Bld) [#/Vo l]Ordered By: Patrice Gomez on 09-30-2023 Neutrophils (Bld) [#/Vol] 6.8 10*3/uL 1.8-7.7 [facility] Neutrophils/100 WBC Auto (Bl d)Ordered By: Patrice Gomez on 09-30-2023 Neutrophils/100 WBC (Bld) 71.5 % . [facility] No Panel InformationOrdered By: Patrice Gomez on 09-30-2023 Estimated GFR (CKD-EPI) > 60.0 mL/Min [facility] Creatinine Clearance (Chem 56.50 [facility] Nucleated erythrocytes [Pres ence] in Blood by Automated countOrdered By: Patrice Gomez on 09-30-2023 Nucleated RBC Auto Ql (Bld) 0.1 /100{WBC} 0-0.5 [facility] Platelet mean volume Auto (B ld) [Entitic vol]Ordered By: Patrice Gomez on 09-30-2023 Platelet mean volume (Bld) [Entitic vol] 6.6 fL 6.3-10.7 [facility] Platelets Auto (Bld) [#/Vol] Ordered By: Patrice Gomez on 09-30-2023 Platelets (Bld) [#/Vol] 333 10*3/uL 150-450 [facility] Potassium [Moles/volume] in Serum or PlasmaOrdered By: Patrice Gomez on 09-30-2023 Potassium [Moles/Vol] 3.9 mmol/L 3.5-5.1 [facility] Protein [Mass/volume] in Ser um or PlasmaOrdered By: Patrice Gomez on 09-30-2023 Protein [Mass/Vol] 6.7 g/dL 6.4-8.9 [facility] RBC Auto (Bld) [#/Vol]Ordere d By: Patrice Gomez on 09-30-2023 RBC (Bld) [#/Vol] 4.35 10*6/uL 3.60-5.00 [facility] Serum or plasma albumin/glob ulin mass ratioOrdered By: Patrice Gomez on 09-30-2023 Albumin/Globulin [Mass ratio] 1.6 {ratio} [facility] Serum or plasma anion gap de terminationOrdered By: Patrice Gomez on 09-30-2023 Anion gap [Moles/Vol] 12.3 mmol/L 6.0-15.0 [facility] Serum or plasma non-glucuron idated bilirubin measurement (mass/volume)Ordered By: Patrice Gomez on 09-30-2023 Bilirubin.indirect [Mass/Vol] 0.4 mg/dL [facility] Sodium [Moles/volume] in Ser um or PlasmaOrdered By: Patrice Gomez on 09-30-2023 Sodium [Moles/Vol] 139 mmol/L 136-145 [facility] Urea nitrogen [Mass/volume] in Serum or PlasmaOrdered By: Patrice Gomez on 09-30-2023 Urea nitrogen [Mass/Vol] 21 mg/dL 7-25 [facility] WBC Auto (Bld) [#/Vol]Ordere d By: Patrice Gomez on 09-30-2023 WBC (Bld) [#/Vol] 9.5 10*3/uL 3.8-11.6 [facility] CNOVon 09-22-2023 CNOV Normal [facility] CNPNon 09-06-2023 CNPN Normal [facility] CNPNon 09-05-2023 CNPN Normal [facility] Basic metabolic 2000 panelon 09-04-2023 Anion gap [Moles/Vol] 9 mmol/L Normal 9-18 [facility] Comment on above: Order Comment: Speci men Type: BLOOD SPECIMENOrdering Facility: [facility] Address: [address] [place] [address] Performed By: #### 2 777-1, , ####[facility] LABORATORYCLIA [id number] [place] [address] [place] Calcium [Mass/Vol] 8.7 mg/dL Normal 8.5-10.2 [facility] Comment on above: Order Comment: Speci men Type: BLOOD SPECIMENOrdering Facility: [facility] Address: [address] [place] [address] Performed By: #### 2 777-1, 98171-8, ####[facility] LABORATORYCLIA [id number] [place] [id number] [place] Chloride [Moles/Vol] 109 mmol/L High 97-105 [facility] Comment on above: Order Comment: Speci men Type: BLOOD SPECIMENOrdering Facility: [facility] Address: [address] [place], [place] [id number] Performed By: #### 2 777-1, 19697-7, ####[facility] LABORATORYCLIA [id number] [place] [id number] [place] CO2 [Moles/Vol] 25 mmol/L Normal 22-30 [facility] Comment on above: Order Comment: Speci men Type: BLOOD SPECIMENOrdering Facility: [facility] Address: [address] [place] [address] Performed By: #### 2 777-1, , ####[facility] LABORATORYCLIA [id number] [place] [id number] [place] Creatinine [Mass/Vol] 0.56 mg/dL Low 0.58-0.96 [facility] Comment on above: Order Comment: Speci men Type: BLOOD SPECIMENOrdering Facility: [facility] Address: [address] [place] [address] Performed By: #### 2 777-1, , ####[facility] LABORATORYCLIA [id number] [place] [id number] [place] Creatinine and Glomerular filtration rate.predicted panel (S/P/Bld) 98 mL/min/1.73m??? Normal >=60 [facility] Comment on above: Order Comment: Speci men Type: BLOOD SPECIMENOrdering Facility: [facility] Address: [address] [place] [address] Result Comment: Farhana mated Glomerular Filtration Rate (eGFR) is calculated using the 2020 CKD-EPI creatinine equation. This equation utilizes serum creatinine, sex, and age as parameters. The creatinine assay has traceable calibration to isotope dilution-mass spectrometry. Refer to KDIGO guidelines for clinical interpretation. In patients with unstable renal function, e.g. those with acute kidney injury, the eGFR may not accurately reflect actual GFR. Performed By: #### 2 777-1, 66261-8, ####[facility] LABORATORYCLIA [id number] [place] [id number] [place] Glucose [Mass/Vol] 99 mg/dL Normal 74-99 [facility] Comment on above: Order Comment: Speci men Type: BLOOD SPECIMENOrdering Facility: [facility] Address: [address] [place] [address] Result Comment: The [place] Diabetes Association (ADA) provides guidance for cutoff values for fasting glucose and random glucose. The ADA defines fasting as no caloric intake for at least 8 hours. Fasting plasma glucose results between 100 to 125 mg/dL indicate increased risk for diabetes (prediabetes).Fasting plasma glucose results greater than or equal to 126 mg/dL meet the criteria for diagnosis of diabetes. In the absence of unequivocal hyperglycemia, results should be confirmed by repeat testing. In a patient with classic symptoms of hyperglycemia or hyperglycemic crisis, random plasma glucose results greater than or equal to 200 mg/dL meet the criteria for diagnosis of diabetes.Reference: Standards of Medical Care in Diabetes 2016, [place] [employer] Association. Diabetes Care. 2016.39(Suppl 1). Performed By: #### 2 777-1, 04154-0, ####[facility]ORATORYCLIA [id number] [place] [id number] [place] Potassium [Moles/Vol] 3.8 mmol/L Normal 3.7-5.1 [facility] Comment on above: Order Comment: Speci men Type: BLOOD SPECIMENOrdering Facility: [facility] Address: [address] [place] [address] Performed By: #### 2 777-1, , ####[facility]ORATORYCLIA [id number] [place] [id number] [place] Sodium [Moles/Vol] 143 mmol/L Normal 136-144 [facility] Comment on above: Order Comment: Speci men Type: BLOOD SPECIMENOrdering Facility: [facility] Address: [address] [place] [address] Performed By: #### 2 777-1, , ####[facility] LABORATORYCLIA [id number] [place] [address] [place] Urea nitrogen [Mass/Vol] 11 mg/dL Normal 7-21 [facility] Comment on above: Order Comment: Speci men Type: BLOOD SPECIMENOrdering Facility: [facility] Address: [address] [place] [address] Performed By: #### 2 777-1, 95591-7, 00688-4 ####[facility]ORATORYCLIA [id number] [place] [id number] [place] CASE MANAGEMon 09-04-2023 CASE MANAGEM Normal [facility] CBC panel Auto (Bld)on 09-04 Erythrocyte distribution width (RBC) [Ratio] 14.4 % Normal 11.5-15.0 [facility] Comment on above: Order Comment: Speci men Type: BLOOD SPECIMENOrdering Facility: [facility] Address: [address] [place] [address] Performed By: #### 5 8410-2 ####[facility]ORATORYCLIA [id number] [address] [place] Hematocrit (Bld) [Volume fraction] 31.1 % Low 36.0-46.0 [facility] Comment on above: Order Comment: Speci men Type: BLOOD SPECIMENOrdering Facility: [facility] Address: [address] [place] [address] Performed By: #### 5 8410-2 ####[facility]ORATORYCLIA [id number] [address] [place] Hemoglobin (Bld) [Mass/Vol] 10.3 g/dL Low 11.5-15.5 [facility] Comment on above: Order Comment: Speci men Type: BLOOD SPECIMENOrdering Facility: [facility] Address: [address] [place] [address] Performed By: #### 5 8410-2 ####[facility]ORATORYCLIA [id number] [place] [id number] [place] MCH (RBC) [Entitic mass] 29.3 pg Normal 26.0-34.0 [facility] Comment on above: Order Comment: Speci men Type: BLOOD SPECIMENOrdering Facility: [facility] Address: [address] [place] [address] Performed By: #### 5 8410-2 ####[facility] LABORATORYCLIA [id number] [place] [id number] [place] MCHC (RBC) [Mass/Vol] 33.1 g/dL Normal 30.5-36.0 [facility] Comment on above: Order Comment: Speci men Type: BLOOD SPECIMENOrdering Facility: [facility] Address: [address] [place] [address] Performed By: #### 5 8410-2 ####[facility] LABORATORYCLIA [id number] [place] [address] [place] MCV (RBC) [Entitic vol] 88.6 fL Normal 80.0-100.0 [facility] Comment on above: Order Comment: Speci men Type: BLOOD SPECIMENOrdering Facility: [facility] Address: [address] [place] [address] Performed By: #### 5 8410-2 ####[facility] LABORATORYCLIA [id number] [place] [address] [place] Nucleated RBC (Bld) [#/Vol] 10*3/uL Normal <0.01 [facility] Comment on above: Order Comment: Speci men Type: BLOOD SPECIMENOrdering Facility: [facility] Address: [address] [place] [address] Performed By: #### 5 8410-2 ####[facility] LABORATORYCLIA [id number] [place] [address] [place] Platelet mean volume (Bld) [Entitic vol] 8.5 fL Low 9.0-12.7 [facility] Comment on above: Order Comment: Speci men Type: BLOOD SPECIMENOrdering Facility: [facility] Address: [address] [place] [address] Performed By: #### 5 8410-2 ####[facility] LABORATORYCLIA [id number] [place] [address] [place] Platelets (Bld) [#/Vol] 319 10*3/uL Normal 150-400 [facility] Comment on above: Order Comment: Speci men Type: BLOOD SPECIMENOrdering Facility: [facility] Address: [address] [place] [address] Performed By: #### 5 8410-2 ####[facility] LABORATORYCLIA [id number] [place] [id number] [place] RBC (Bld) [#/Vol] 3.51 10*6/uL Low 3.90-5.20 [facility] Comment on above: Order Comment: Speci men Type: BLOOD SPECIMENOrdering Facility: [facility] Address: [address] [place] [address] Performed By: #### 5 8410-2 ####[facility] LABORATORYCLIA [id number] [place] [id number] [place] WBC (Bld) [#/Vol] 5.11 10*3/uL Normal 3.70-11.00 [facility] Comment on above: Order Comment: Speci men Type: BLOOD SPECIMENOrdering Facility: [facility] Address: [address] [place] [address] Performed By: #### 5 8410-2 ####[facility] LABORATORYCLIA [id number] [place] [address] [place] CNDSon 09-04-2023 CNDS Normal [facility] CONSULTon 09-04-2023 CONSULT Normal [facility] Erythrocyte distribution wid th Auto (RBC) [Ratio]on 09-04-2023 Erythrocyte distribution width (RBC) [Ratio] 14.4 % 11.5-15.0 [facility] Hematocrit Auto (Bld) [Volum e fraction]on 09-04-2023 Hematocrit (Bld) [Volume fraction] 31.1 % 36.0-46.0 [facility] Hemoglobin [Mass/volume] in Bloodon 09-04-2023 Hemoglobin (Bld) [Mass/Vol] 10.3 g/dL 11.5-15.5 [facility] Laboratory - Chemistry and C hemistry - challengeon 09-04-2023 Calcium [Mass/Vol] 8.7 mg/dL 8.5-10.2 [facility] Chloride [Moles/Vol] 109 mmol/L 97-105 [facility] CO2 [Moles/Vol] 25 mmol/L 22-30 [facility] Creatinine [Mass/Vol] 0.56 mg/dL 0.58-0.96 [facility] Glucose [Mass/Vol] 99 mg/dL 74-99 [facility] Comment on above: The [place] Diabete s Association (ADA) provides guidance for cutoff values for fasting glucose and random glucose. The ADA defines fasting as no caloric intake for at least 8 hours. Fasting plasma glucose results between 100 to 125 mg/dL indicate increased risk for diabetes (prediabetes).Fasting plasma glucose results greater than or equal to 126 mg/dL meet the criteria for diagnosis of diabetes. In the absence of unequivocal hyperglycemia, results should be confirmed by repeat testing. In a patient with classic symptoms of hyperglycemia or hyperglycemic crisis, random plasma glucose results greater than or equal to 200 mg/dL meet the criteria for diagnosis of diabetes.Reference: Standards of Medical Care in Diabetes 2016, [place] [employer]. Diabetes Care. 2016.39(Suppl 1). Magnesium [Mass/Vol] 1.8 mg/dL 1.7-2.3 [facility] Potassium [Moles/Vol] 3.8 mmol/L 3.7-5.1 [facility] Sodium [Moles/Vol] 143 mmol/L 136-144 [facility] Urea nitrogen [Mass/Vol] 11 mg/dL 7-21 [facility] Leukocytes [#/volume] correc french for nucleated erythrocytes in Blood by Automated counon 09-04-2023 WBC corrected for nucl RBC Auto (Bld) [#/Vol] 5.11 k/uL 3.70-11.00 [facility] MCH Auto (RBC) [Entitic mass ]on 09-04-2023 MCH (RBC) [Entitic mass] 29.3 pg 26.0-34.0 [facility] MCHC Auto (RBC) [Mass/Vol]on 09-04-2023 MCHC (RBC) [Mass/Vol] 33.1 g/dL 30.5-36.0 [facility] MCV Auto (RBC) [Entitic vol] on 09-04-2023 MCV (RBC) [Entitic vol] 88.6 fL 80.0-100.0 [facility] Magnesium SerPl-mCncon 09-04 Magnesium [Mass/Vol] 1.8 mg/dL Normal 1.7-2.3 [facility] Comment on above: Order Comment: Speci men Type: BLOOD SPECIMENOrdering Facility: [facility] Address: [address] [place] [address] Performed By: #### 2 777-1, 47515-3, ####[facility] LABORATORYCLIA [id number] [place] [id number] [place] NURSING PROGon 09-04-2023 NURSING PROG Normal [facility] No Panel Informationon 09-04 Estimated GFR (CKD-EPI) 98 mL/min/1.73m??? >=60 [facility] Comment on above: Estimated Glomerular Filtration Rate (eGFR) is calculated using the 2020 CKD-EPI creatinine equation. This equation utilizes serum creatinine, sex, and age as parameters. The creatinine assay has traceable calibration to isotope dilution-mass spectrometry. Refer to KDIGO guidelines for clinical interpretation. In patients with unstable renal function, e.g. those with acute kidney injury, the eGFR may not accurately reflect actual GFR. Phosphorus Level 4.6 mg/dL 2.7-4.8 [facility] Nucleated RBC Auto (Bld) [#/ Vol]on 09-04-2023 Nucleated RBC (Bld) [#/Vol] 10*3/uL <0.01 [facility] Phosphate SerPl-mCncon 09-04 Phosphate [Mass/Vol] 4.6 mg/dL Normal 2.7-4.8 [facility] Comment on above: Order Comment: Speci men Type: BLOOD SPECIMENOrdering Facility: [facility] Address: [address] [place] [address] Performed By: #### 2 777-1, , ####[facility] LABORATORYCLIA [id number] [place] [id number] [place] Platelet mean volume Auto (B ld) [Entitic vol]on 09-04-2023 Platelet mean volume (Bld) [Entitic vol] 8.5 fL 9.0-12.7 [facility] Platelets Auto (Bld) [#/Vol] on 09-04-2023 Platelets (Bld) [#/Vol] 319 10*3/uL 150-400 [facility] RBC Auto (Bld) [#/Vol]on RBC (Bld) [#/Vol] 3.51 10*6/uL 3.90-5.20 [facility] Serum or plasma anion gap de terminationon 09-04-2023 Anion gap [Moles/Vol] 9 mmol/L 9-18 [facility] Basic metabolic 2000 panelon 09-03-2023 Anion gap [Moles/Vol] 9 mmol/L Normal - [facility] Comment on above: Order Comment: Speci men Type: BLOOD SPECIMENOrdering Facility: [facility] Address: [address] [place] [address] Performed By: #### 1 9123-9, 2777-, 66476-2 ####[facility] LABORATORYCLIA [id number] [place] [address] [place] Calcium [Mass/Vol] 8.9 mg/dL Normal 8.5-10.2 [facility] Comment on above: Order Comment: Speci men Type: BLOOD SPECIMENOrdering Facility: [facility] Address: [address] [place] [address] Performed By: #### 1 9123-9, 2777-1, 85173-2 ####[facility] LABORATORYCLIA [id number] [place] [id number] [place] Chloride [Moles/Vol] 105 mmol/L Normal 97-105 [facility] Comment on above: Order Comment: Speci men Type: BLOOD SPECIMENOrdering Facility: [facility] Address: [address] [place] [address] Performed By: #### 1 9123-9, 2777-1, 55911-5 ####[facility] LABORATORYCLIA [id number] [place] [id number] [place] CO2 [Moles/Vol] 27 mmol/L Normal 22-30 [facility] Comment on above: Order Comment: Speci men Type: BLOOD SPECIMENOrdering Facility: [facility] Address: [address] [place] [address] Performed By: #### 1 9123-9, 2777-1, 22348-3 ####[facility] LABORATORYCLIA [id number] [place] [address] [place] Creatinine [Mass/Vol] 0.57 mg/dL Low 0.58-0.96 [facility] Comment on above: Order Comment: Speci men Type: BLOOD SPECIMENOrdering Facility: [facility] Address: [address] [place] [address] Performed By: #### 1 9123-9, 27701-07, 33313-9 ####[facility] LABORATORYCLIA [id number] [place] [address] [place] Creatinine and Glomerular filtration rate.predicted panel (S/P/Bld) 98 mL/min/1.73m??? Normal >=60 [facility] Comment on above: Order Comment: Speci men Type: BLOOD SPECIMENOrdering Facility: [facility] Address: [address] [place] [address] Result Comment: Farhana mated Glomerular Filtration Rate (eGFR) is calculated using the 2020 CKD-EPI creatinine equation. This equation utilizes serum creatinine, sex, and age as parameters. The creatinine assay has traceable calibration to isotope dilution-mass spectrometry. Refer to KDIGO guidelines for clinical interpretation. In patients with unstable renal function, e.g. those with acute kidney injury, the eGFR may not accurately reflect actual GFR. Performed By: #### 1 9123-9, 2777-, 67034-5 ####[facility] LABORATORYCLIA [id number] [place] [id number] [place] Glucose [Mass/Vol] 105 mg/dL High 74-99 [facility] Comment on above: Order Comment: Speci men Type: BLOOD SPECIMENOrdering Facility: [facility] Address: [address] [place] [address] Result Comment: The [place] Diabetes Association (ADA) provides guidance for cutoff values for fasting glucose and random glucose. The ADA defines fasting as no caloric intake for at least 8 hours. Fasting plasma glucose results between 100 to 125 mg/dL indicate increased risk for diabetes (prediabetes).Fasting plasma glucose results greater than or equal to 126 mg/dL meet the criteria for diagnosis of diabetes. In the absence of unequivocal hyperglycemia, results should be confirmed by repeat testing. In a patient with classic symptoms of hyperglycemia or hyperglycemic crisis, random plasma glucose results greater than or equal to 200 mg/dL meet the criteria for diagnosis of diabetes.Reference: Standards of Medical Care in Diabetes 2016, [place] [employer]. Diabetes Care. 2016.39(Suppl 1). Performed By: #### 1 9123-9, 2777-, 49343-1 ####[facility] LABORATORYCLIA [id number] [place] [id number] [place] Potassium [Moles/Vol] 3.7 mmol/L Normal 3.7-5.1 [facility] Comment on above: Order Comment: Speci men Type: BLOOD SPECIMENOrdering Facility: [facility] Address: [address] [place] [address] Performed By: #### 1 9123-9, 2777, 60055-8 ####[facility] LABORATORYCLIA [id number] [place] [id number] [place] Sodium [Moles/Vol] 141 mmol/L Normal 136-144 [facility] Comment on above: Order Comment: Speci men Type: BLOOD SPECIMENOrdering Facility: [facility] Address: [address] [place] [address] Performed By: #### 1 9123-9, 27701-07, 75822-2 ####[facility] LABORATORYCLIA [id number] [place] [id number] [place] Urea nitrogen [Mass/Vol] 10 mg/dL Normal 7-21 [facility] Comment on above: Order Comment: Speci men Type: BLOOD SPECIMENOrdering Facility: [facility] Address: [address] [place] [address] Performed By: #### 1 9123-9, 2777-, 22805-6 ####[facility] LABORATORYCLIA [id number] [address] [place] CBC panel Auto (Bld)on 09-03 Erythrocyte distribution width (RBC) [Ratio] 14.3 % Normal 11.5-15.0 [facility] Comment on above: Order Comment: Speci men Type: BLOOD SPECIMENOrdering Facility: [facility] Address: [address] [place] [address] Performed By: #### 5 8410-2 ####[facility] LABORATORYCLIA [id number] [address] Hematocrit (Bld) [Volume fraction] 30.5 % Low 36.0-46.0 [facility] Comment on above: Order Comment: Speci men Type: BLOOD SPECIMENOrdering Facility: [facility] Address: [address] [place] [address] Performed By: #### 5 8410-2 ####[facility] LABORATORYCLIA [id number] [address] Hemoglobin (Bld) [Mass/Vol] 10.1 g/dL Low 11.5-15.5 [facility] Comment on above: Order Comment: Speci men Type: BLOOD SPECIMENOrdering Facility: [facility] Address: [address] [place] [address] Performed By: #### 5 8410-2 ####[facility] LABORATORYCLIA [id number] [address] MCH (RBC) [Entitic mass] 29.4 pg Normal 26.0-34.0 [facility] Comment on above: Order Comment: Speci men Type: BLOOD SPECIMENOrdering Facility: [facility] Address: [address] [place] [address] Performed By: #### 5 8410-2 ####[facility] LABORATORYCLIA [id number] [address] MCHC (RBC) [Mass/Vol] 33.1 g/dL Normal 30.5-36.0 [facility] Comment on above: Order Comment: Speci men Type: BLOOD SPECIMENOrdering Facility: [facility] Address: [address] [place] [address] Performed By: #### 5 8410-2 ####[facility] LABORATORYCLIA [id number] [place] [id number] [place] MCV (RBC) [Entitic vol] 88.9 fL Normal 80.0-100.0 [facility] Comment on above: Order Comment: Speci men Type: BLOOD SPECIMENOrdering Facility: [facility] Address: [address] [place] [address] Performed By: #### 5 8410-2 ####[facility] LABORATORYCLIA [id number] [place] [id number] [place] Nucleated RBC (Bld) [#/Vol] 10*3/uL Normal <0.01 [facility] Comment on above: Order Comment: Speci men Type: BLOOD SPECIMENOrdering Facility: [facility] Address: [address] [place] [address] Performed By: #### 5 8410-2 ####[facility] LABORATORYCLIA [id number] [place] [address] [place] Platelet mean volume (Bld) [Entitic vol] 8.7 fL Low 9.0-12.7 [facility] Comment on above: Order Comment: Speci men Type: BLOOD SPECIMENOrdering Facility: [facility] Address: [address] [place] [address] Performed By: #### 5 8410-2 ####[facility] LABORATORYCLIA [id number] [place] [id number] [place] Platelets (Bld) [#/Vol] 306 10*3/uL Normal 150-400 [facility] Comment on above: Order Comment: Speci men Type: BLOOD SPECIMENOrdering Facility: [facility] Address: [address] [place] [address] Performed By: #### 5 8410-2 ####[facility] LABORATORYCLIA [id number] [place] [address] [place] RBC (Bld) [#/Vol] 3.43 10*6/uL Low 3.90-5.20 [facility] Comment on above: Order Comment: Speci men Type: BLOOD SPECIMENOrdering Facility: [facility] Address: [address] [address] Performed By: #### 5 8410-2 ####[facility] LABORATORYCLIA [id number] [address] [place] WBC (Bld) [#/Vol] 5.15 10*3/uL Normal 3.70-11.00 [facility] Comment on above: Order Comment: Speci men Type: BLOOD SPECIMENOrdering Facility: [facility] Address: [address] [place] [address] Performed By: #### 5 8410-2 ####[facility] LABORATORYCLIA [id number] [address] [place] Erythrocyte distribution wid th Auto (RBC) [Ratio]on 09-03-2023 Erythrocyte distribution width (RBC) [Ratio] 14.3 % 11.5-15.0 [facility] Hematocrit Auto (Bld) [Volum e fraction]on 09-03-2023 Hematocrit (Bld) [Volume fraction] 30.5 % 36.0-46.0 [facility] Hemoglobin [Mass/volume] in Bloodon 09-03-2023 Hemoglobin (Bld) [Mass/Vol] 10.1 g/dL 11.5-15.5 [facility] Laboratory - Chemistry and C hemistry - challengeon 09-03-2023 Calcium [Mass/Vol] 8.9 mg/dL 8.5-10.2 [facility] Chloride [Moles/Vol] 105 mmol/L 97-105 [facility] CO2 [Moles/Vol] 27 mmol/L 22-30 [facility] Creatinine [Mass/Vol] 0.57 mg/dL 0.58-0.96 [facility] Glucose [Mass/Vol] 105 mg/dL 74-99 [facility] Comment on above: The [place] Diabete s Association (ADA) provides guidance for cutoff values for fasting glucose and random glucose. The ADA defines fasting as no caloric intake for at least 8 hours. Fasting plasma glucose results between 100 to 125 mg/dL indicate increased risk for diabetes (prediabetes).Fasting plasma glucose results greater than or equal to 126 mg/dL meet the criteria for diagnosis of diabetes. In the absence of unequivocal hyperglycemia, results should be confirmed by repeat testing. In a patient with classic symptoms of hyperglycemia or hyperglycemic crisis, random plasma glucose results greater than or equal to 200 mg/dL meet the criteria for diagnosis of diabetes.Reference: Standards of Medical Care in Diabetes 2016, [place] Diabetes Association. Diabetes Care. 2016.39(Suppl 1). Magnesium [Mass/Vol] 1.9 mg/dL 1.7-2.3 [facility] Potassium [Moles/Vol] 3.7 mmol/L 3.7-5.1 [facility] Sodium [Moles/Vol] 141 mmol/L 136-144 [facility] Urea nitrogen [Mass/Vol] 10 mg/dL 7- [facility] Leukocytes [#/volume] correc french for nucleated erythrocytes in Blood by Automated counon 09-03-2023 WBC corrected for nucl RBC Auto (Bld) [#/Vol] 5.15 k/uL 3.70-11.00 [facility] MCH Auto (RBC) [Entitic mass ]on 09-03-2023 MCH (RBC) [Entitic mass] 29.4 pg 26.0-34.0 [facility] MCHC Auto (RBC) [Mass/Vol]on 09-03-2023 MCHC (RBC) [Mass/Vol] 33.1 g/dL 30.5-36.0 [facility] MCV Auto (RBC) [Entitic vol] on 09-03-2023 MCV (RBC) [Entitic vol] 88.9 fL 80.0-100.0 [facility] Magnesium SerPl-mCncon 09-03 Magnesium [Mass/Vol] 1.9 mg/dL Normal 1.7-2.3 [facility] Comment on above: Order Comment: Speci men Type: BLOOD SPECIMENOrdering Facility: [facility] Address: [address] [place], [place] [address] Performed By: #### 1 9123-9, 2777-1, 19117-5 ####[facility] LABORATORYCLIA [id number] [place] [address] [place] NURSING PROGon 09-03-2023 NURSING PROG Normal [facility] No Panel Informationon 09-03 Estimated GFR (CKD-EPI) 98 mL/min/1.73m??? >=60 [facility] Comment on above: Estimated Glomerular Filtration Rate (eGFR) is calculated using the 2020 CKD-EPI creatinine equation. This equation utilizes serum creatinine, sex, and age as parameters. The creatinine assay has traceable calibration to isotope dilution-mass spectrometry. Refer to KDIGO guidelines for clinical interpretation. In patients with unstable renal function, e.g. those with acute kidney injury, the eGFR may not accurately reflect actual GFR. Phosphorus Level 3.7 mg/dL 2.7-4.8 [facility] Nucleated RBC Auto (Bld) [#/ Vol]on 09-03-2023 Nucleated RBC (Bld) [#/Vol] 10*3/uL <0.01 [facility] Phosphate SerPl-mCncon 09-03 Phosphate [Mass/Vol] 3.7 mg/dL Normal 2.7-4.8 [facility] Comment on above: Order Comment: Speci men Type: BLOOD SPECIMENOrdering Facility: [facility] Address: [facility] [place] [address] Performed By: #### 1 9123-9, 2777-1, 18214-5 ####[facility]ORATORYCLIA [id number] [place] [address] [place] Platelet mean volume Auto (B ld) [Entitic vol]on 09-03-2023 Platelet mean volume (Bld) [Entitic vol] 8.7 fL 9.0-12.7 [facility] Platelets Auto (Bld) [#/Vol] on 09-03-2023 Platelets (Bld) [#/Vol] 306 10*3/uL 150-400 [facility] RBC Auto (Bld) [#/Vol]on RBC (Bld) [#/Vol] 3.43 10*6/uL 3.90-5.20 [facility] Serum or plasma anion gap de terminationon 09-03-2023 Anion gap [Moles/Vol] 9 mmol/L 9-18 [facility] Basic metabolic 2000 panelon 09-02-2023 Anion gap [Moles/Vol] 13 mmol/L Normal -18 [facility] Comment on above: Order Comment: Speci men Type: BLOOD SPECIMENOrdering Facility: [facility] Address: [address] [place] [address] Performed By: #### 2 777-1, 54414-5, ####[facility] LABORATORYCLIA [id number] [place] [address] [place] Calcium [Mass/Vol] 8.7 mg/dL Normal 8.5-10.2 [facility] Comment on above: Order Comment: Speci men Type: BLOOD SPECIMENOrdering Facility: [facility] Address: [address] [place] [address] Performed By: #### 2 777-1, , ####[facility] LABORATORYCLIA [id number] [place] [id number] [place] Chloride [Moles/Vol] 106 mmol/L High 97-105 [facility] Comment on above: Order Comment: Speci men Type: BLOOD SPECIMENOrdering Facility: [facility] Address: [address] [place] [address] Performed By: #### 2 777-1, , ####[facility] LABORATORYCLIA [id number] [place] [id number] [place] CO2 [Moles/Vol] 26 mmol/L Normal 22-30 [facility] Comment on above: Order Comment: Speci men Type: BLOOD SPECIMENOrdering Facility: [facility] Address: [address] [place] [address] Performed By: #### 2 777-1, 30223-1, ####[facility] LABORATORYCLIA [id number] [place] [address] [place] Creatinine [Mass/Vol] 0.61 mg/dL Normal 0.58-0.96 [facility] Comment on above: Order Comment: Mason simpson Type: BLOOD SPECIMENOrdering Facility: [facility] Address: [address] [place] [address] Performed By: #### 2 777-1, 67350-3, ####[facility] LABORATORYCLIA [id number] [place] [id number] [place] Creatinine and Glomerular filtration rate.predicted panel (S/P/Bld) 96 mL/min/1.73m??? Normal >=60 [facility] Comment on above: Order Comment: Mason simpson Type: BLOOD SPECIMENOrdering Facility: [facility] Address: [address] [place] [address] Result Comment: Farhana mated Glomerular Filtration Rate (eGFR) is calculated using the 2020 CKD-EPI creatinine equation. This equation utilizes serum creatinine, sex, and age as parameters. The creatinine assay has traceable calibration to isotope dilution-mass spectrometry. Refer to KDIGO guidelines for clinical interpretation. In patients with unstable renal function, e.g. those with acute kidney injury, the eGFR may not accurately reflect actual GFR. Performed By: #### 2 777-1, 28145-6, ####[facility]ORATORYCLIA [id number] [place] [id number] [place] Glucose [Mass/Vol] 84 mg/dL Normal 74-99 [facility] Comment on above: Order Comment: Mason simpson Type: BLOOD SPECIMENOrdering Facility: [facility] Address: [address] [place] [address] Result Comment: The [place] Diabetes Association (ADA) provides guidance for cutoff values for fasting glucose and random glucose. The ADA defines fasting as no caloric intake for at least 8 hours. Fasting plasma glucose results between 100 to 125 mg/dL indicate increased risk for diabetes (prediabetes).Fasting plasma glucose results greater than or equal to 126 mg/dL meet the criteria for diagnosis of diabetes. In the absence of unequivocal hyperglycemia, results should be confirmed by repeat testing. In a patient with classic symptoms of hyperglycemia or hyperglycemic crisis, random plasma glucose results greater than or equal to 200 mg/dL meet the criteria for diagnosis of diabetes.Reference: Standards of Medical Care in Diabetes 2016, [place] [employer]. Diabetes Care. 2016.39(Suppl 1). Performed By: #### 2 777-1, 09521-1, ####[facility]ORATORYCLIA [id number] [place] [id number] [place] Potassium [Moles/Vol] 3.5 mmol/L Low 3.7-5.1 [facility] Comment on above: Order Comment: Speci men Type: BLOOD SPECIMENOrdering Facility: [facility] Address: [address] [place] [address] Performed By: #### 2 777-1, 94171-3, ####[facility] LABORATORYCLIA [id number] [place] [id number] [place] Sodium [Moles/Vol] 145 mmol/L High 136-144 [facility] Comment on above: Order Comment: Speci men Type: BLOOD SPECIMENOrdering Facility: [facility] Address: [address] [place] [address] Performed By: #### 2 777-1, 70885-4, ####[facility] LABORATORYCLIA [id number] [place] [id number] [place] Urea nitrogen [Mass/Vol] 22 mg/dL High 7-21 [facility] Comment on above: Order Comment: Speci men Type: BLOOD SPECIMENOrdering Facility: [facility] Address: [address] [place] [address] Performed By: #### 2 777-1, 31113-9, ####[facility] LABORATORYCLIA [id number] [place] [id number] [place] CBC panel Auto (Bld)on 09-02 Erythrocyte distribution width (RBC) [Ratio] 14.6 % Normal 11.5-15.0 [facility] Comment on above: Order Comment: Speci men Type: BLOOD SPECIMENOrdering Facility: [facility] Address: [address] [place] [address] Performed By: #### 5 8410-2 ####[facility] LABORATORYCLIA [id number] [address] [place] Hematocrit (Bld) [Volume fraction] 33.2 % Low 36.0-46.0 [facility] Comment on above: Order Comment: Speci men Type: BLOOD SPECIMENOrdering Facility: [facility] Address: [address] [place] [address] Performed By: #### 5 8410-2 ####[facility] LABORATORYCLIA [id number] [place] [address] [place] Hemoglobin (Bld) [Mass/Vol] 10.8 g/dL Low 11.5-15.5 [facility] Comment on above: Order Comment: Speci men Type: BLOOD SPECIMENOrdering Facility: [facility] Address: [address] [place] [address] Performed By: #### 5 8410-2 ####[facility] LABORATORYCLIA [id number] [place] [address] [place] MCH (RBC) [Entitic mass] 29.4 pg Normal 26.0-34.0 [facility] Comment on above: Order Comment: Speci men Type: BLOOD SPECIMENOrdering Facility: [facility] Address: [address] [place] [address] Performed By: #### 5 8410-2 ####[facility] LABORATORYCLIA [id number] [address] [place] MCHC (RBC) [Mass/Vol] 32.5 g/dL Normal 30.5-36.0 [facility] Comment on above: Order Comment: Speci men Type: BLOOD SPECIMENOrdering Facility: [facility] Address: [address] [place] [address] Performed By: #### 5 8410-2 ####[facility] LABORATORYCLIA [id number] [address] [place] MCV (RBC) [Entitic vol] 90.5 fL Normal 80.0-100.0 [facility] Comment on above: Order Comment: Speci men Type: BLOOD SPECIMENOrdering Facility: [facility] Address: [address] [place] [address] Performed By: #### 5 8410-2 ####[facility] [facility] LAB[facility]ATORYCLIA [id number] [place] [id number] [place] Nucleated RBC (Bld) [#/Vol] 10*3/uL Normal <0.01 [facility] Comment on above: Order Comment: Speci men Type: BLOOD SPECIMENOrdering Facility: [facility] Address: [address] [place] [address] Performed By: #### 5 8410-2 ####[facility] LABORATORYCLIA [id number] [place] [address] [place] Platelet mean volume (Bld) [Entitic vol] 8.4 fL Low 9.0-12.7 [facility] Comment on above: Order Comment: Speci men Type: BLOOD SPECIMENOrdering Facility: [facility] Address: [address] [place] [address] Performed By: #### 5 8410-2 ####[facility] LABORATORYCLIA [id number] [place] [address] [place] Platelets (Bld) [#/Vol] 290 10*3/uL Normal 150-400 [facility] Comment on above: Order Comment: Speci men Type: BLOOD SPECIMENOrdering Facility: [facility] Address: [address] [place] [address] Performed By: #### 5 8410-2 ####[facility] LABORATORYCLIA [id number] [place] [address] [place] RBC (Bld) [#/Vol] 3.67 10*6/uL Low 3.90-5.20 [facility] Comment on above: Order Comment: Speci men Type: BLOOD SPECIMENOrdering Facility: [facility] Address: [address] [place] [address] Performed By: #### 5 8410-2 ####[facility] LABORATORYCLIA [id number] [place] [address] [place] WBC (Bld) [#/Vol] 5.87 10*3/uL Normal 3.70-11.00 [facility] Comment on above: Order Comment: Speci men Type: BLOOD SPECIMENOrdering Facility: [facility] Address: [address] [place] [address] Performed By: #### 5 8410-2 ####[facility] LABORATORYCLIA [id number] [place] [address] [place] Erythrocyte distribution wid th Auto (RBC) [Ratio]on 09-02-2023 Erythrocyte distribution width (RBC) [Ratio] 14.6 % 11.5-15.0 [facility] Hematocrit Auto (Bld) [Volum e fraction]on 09-02-2023 Hematocrit (Bld) [Volume fraction] 33.2 % 36.0-46.0 [facility] Hemoglobin [Mass/volume] in Bloodon 09-02-2023 Hemoglobin (Bld) [Mass/Vol] 10.8 g/dL 11.5-15.5 [facility] Laboratory - Chemistry and C hemistry - challengeon 09-02-2023 Calcium [Mass/Vol] 8.7 mg/dL 8.5-10.2 [facility] Chloride [Moles/Vol] 106 mmol/L 97-105 [facility] CO2 [Moles/Vol] 26 mmol/L 22-30 [facility] Creatinine [Mass/Vol] 0.61 mg/dL 0.58-0.96 [facility] Glucose [Mass/Vol] 84 mg/dL 74-99 [facility] Comment on above: The [place] Diab[employer] s Association (ADA) provides guidance for cutoff values for fasting glucose and random glucose. The ADA defines fasting as no caloric intake for at least 8 hours. Fasting plasma glucose results between 100 to 125 mg/dL indicate increased risk for diabetes (prediabetes).Fasting plasma glucose results greater than or equal to 126 mg/dL meet the criteria for diagnosis of diabetes. In the absence of unequivocal hyperglycemia, results should be confirmed by repeat testing. In a patient with classic symptoms of hyperglycemia or hyperglycemic crisis, random plasma glucose results greater than or equal to 200 mg/dL meet the criteria for diagnosis of diabetes.Reference: Standards of Medical Care in Diabetes 2016, [place] [employer]. Diabetes Care. 2016.39(Suppl 1). Magnesium [Mass/Vol] 2.1 mg/dL 1.7-2.3 [facility] Potassium [Moles/Vol] 3.5 mmol/L 3.7-5.1 [facility] Sodium [Moles/Vol] 145 mmol/L 136-144 [facility] Urea nitrogen [Mass/Vol] 22 mg/dL 7-21 [facility] Leukocytes [#/volume] correc french for nucleated erythrocytes in Blood by Automated counon 09-02-2023 WBC corrected for nucl RBC Auto (Bld) [#/Vol] 5.87 k/uL 3.70-11.00 [facility] MCH Auto (RBC) [Entitic mass ]on 09-02-2023 MCH (RBC) [Entitic mass] 29.4 pg 26.0-34.0 [facility] MCHC Auto (RBC) [Mass/Vol]on 09-02-2023 MCHC (RBC) [Mass/Vol] 32.5 g/dL 30.5-36.0 [facility] MCV Auto (RBC) [Entitic vol] on 09-02-2023 MCV (RBC) [Entitic vol] 90.5 fL 80.0-100.0 [facility] Magnesium SerPl-mCncon 09-02 Magnesium [Mass/Vol] 2.1 mg/dL Normal 1.7-2.3 [facility] Comment on above: Order Comment: Speci men Type: BLOOD SPECIMENOrdering Facility: [facility] Address: [address] [place] [address] Performed By: #### 2 777-1, 39241-0, 89598-2 ####[facility] LABORATORYCLIA [id number] [place] [address] [place] NURSING PROGon 09-02-2023 NURSING PROG Normal [facility] No Panel Informationon 09-02 Estimated GFR (CKD-EPI) 96 mL/min/1.73m??? >=60 [facility] Comment on above: Estimated Glomerular Filtration Rate (eGFR) is calculated using the 2020 CKD-EPI creatinine equation. This equation utilizes serum creatinine, sex, and age as parameters. The creatinine assay has traceable calibration to isotope dilution-mass spectrometry. Refer to KDIGO guidelines for clinical interpretation. In patients with unstable renal function, e.g. those with acute kidney injury, the eGFR may not accurately reflect actual GFR. Phosphorus Level 3.5 mg/dL 2.7-4.8 [facility] Nucleated RBC Auto (Bld) [#/ Vol]on 09-02-2023 Nucleated RBC (Bld) [#/Vol] 10*3/uL <0.01 [facility] Phosphate SerPl-mCncon 09-02 Phosphate [Mass/Vol] 3.5 mg/dL Normal 2.7-4.8 [facility] Comment on above: Order Comment: Speci men Type: BLOOD SPECIMENOrdering Facility: [facility] Address: [address] [place] [address] Performed By: #### 2 777-1, 89923-0, ####[facility] LABORATORYCLIA [id number] [place] [address] [place] Platelet mean volume Auto (B ld) [Entitic vol]on 09-02-2023 Platelet mean volume (Bld) [Entitic vol] 8.4 fL 9.0-12.7 [facility] Platelets Auto (Bld) [#/Vol] on 09-02-2023 Platelets (Bld) [#/Vol] 290 10*3/uL 150-400 [facility] RBC Auto (Bld) [#/Vol]on RBC (Bld) [#/Vol] 3.67 10*6/uL 3.90-5.20 [facility] Serum or plasma anion gap de terminationon 09-02-2023 Anion gap [Moles/Vol] 13 mmol/L -18 [facility] Basic metabolic 2000 panelon 09-01-2023 Anion gap [Moles/Vol] 13 mmol/L Normal - [facility] Comment on above: Order Comment: Speci men Type: BLOOD SPECIMENOrdering Facility: [facility] Address: [address] [place] [address] Performed By: #### 2 4321-2, 2777-1, ####[facility] LABORATORYCLIA [id number] [place] [address] [place] Calcium [Mass/Vol] 8.8 mg/dL Normal 8.5-10.2 [facility] Comment on above: Order Comment: Speci men Type: BLOOD SPECIMENOrdering Facility: [facility] Address: [address] [place] [address] Performed By: #### 2 4321-2, 2776-07, ####[facility] LABORATORYCLIA [id number] [place] [id number] [place] Chloride [Moles/Vol] 101 mmol/L Normal 97-105 [facility] Comment on above: Order Comment: Speci men Type: BLOOD SPECIMENOrdering Facility: [facility] Address: [address] [place] [address] Performed By: #### 2 4321-2, 2776-07, ####[facility] LABORATORYCLIA [id number] [place] [id number] [place] CO2 [Moles/Vol] 27 mmol/L Normal 22-30 [facility] Comment on above: Order Comment: Speci men Type: BLOOD SPECIMENOrdering Facility: [facility] Address: [address] [place] [address] Performed By: #### 2 4321-2, 2776-07, ####[facility] LABORATORYCLIA [id number] [place] [id number] [place] Creatinine [Mass/Vol] 0.77 mg/dL Normal 0.58-0.96 [facility] Comment on above: Order Comment: Speci men Type: BLOOD SPECIMENOrdering Facility: [facility] Address: [address] [place] [address] Performed By: #### 2 4321-2, 2776-07, ####[facility] LABORATORYCLIA [id number] [place] [address] [place] Creatinine and Glomerular filtration rate.predicted panel (S/P/Bld) 83 mL/min/1.73m??? Normal >=60 [facility] Comment on above: Order Comment: Mason simpson Type: BLOOD SPECIMENOrdering Facility: [facility] Address: [address] [place] [address] Result Comment: Farhana mated Glomerular Filtration Rate (eGFR) is calculated using the 2020 CKD-EPI creatinine equation. This equation utilizes serum creatinine, sex, and age as parameters. The creatinine assay has traceable calibration to isotope dilution-mass spectrometry. Refer to KDIGO guidelines for clinical interpretation. In patients with unstable renal function, e.g. those with acute kidney injury, the eGFR may not accurately reflect actual GFR. Performed By: #### 2 4321-2, 2777-1, ####[facility] LABORATORYCLIA [id number] [place] [id number] [place] Glucose [Mass/Vol] 95 mg/dL Normal 74-99 [facility] Comment on above: Order Comment: Mason simpson Type: BLOOD SPECIMENOrdering Facility: [facility] Address: [address] [place] [address] Result Comment: The [place] Diabetes Association (ADA) provides guidance for cutoff values for fasting glucose and random glucose. The ADA defines fasting as no caloric intake for at least 8 hours. Fasting plasma glucose results between 100 to 125 mg/dL indicate increased risk for diabetes (prediabetes).Fasting plasma glucose results greater than or equal to 126 mg/dL meet the criteria for diagnosis of diabetes. In the absence of unequivocal hyperglycemia, results should be confirmed by repeat testing. In a patient with classic symptoms of hyperglycemia or hyperglycemic crisis, random plasma glucose results greater than or equal to 200 mg/dL meet the criteria for diagnosis of diabetes.Reference: Standards of Medical Care in Diabetes 2016, [place] [employer]. Diabetes Care. 2016.39(Suppl 1). Performed By: #### 2 4321-2, 2777-1, ####[facility] LABORATORYCLIA [id number] [place] [id number] [place] Potassium [Moles/Vol] 4.2 mmol/L Normal 3.7-5.1 [facility] Comment on above: Order Comment: Mason simpson Type: BLOOD SPECIMENOrdering Facility: [facility] Address: [address] [place] [address] Performed By: #### 2 4321-2, 277-, ####[facility] LABORATORYCLIA [id number] [place] [id number] [place] Sodium [Moles/Vol] 141 mmol/L Normal 136-144 [facility] Comment on above: Order Comment: Speci men Type: BLOOD SPECIMENOrdering Facility: [facility] Address: [facility] [place] [address] Performed By: #### 2 4321-2, 277-, ####[facility] LABORATORYCLIA [id number] [place] [id number] [place] Urea nitrogen [Mass/Vol] 22 mg/dL High 7-21 [facility] Comment on above: Order Comment: Speci men Type: BLOOD SPECIMENOrdering Facility: [facility] Address: [address] [place] [address] Performed By: #### 2 4321-2, 2776-07, ####[facility] LABORATORYCLIA [id number] [place] [id number] [place] CASE MANAGEMon 09-01-2023 CASE MANAGEM Normal [facility] CBC panel Auto (Bld)on 09-01 Erythrocyte distribution width (RBC) [Ratio] 15.2 % High 11.5-15.0 [facility] Comment on above: Order Comment: Speci men Type: BLOOD SPECIMENOrdering Facility: [facility] Address: [address] [place] [address] Performed By: #### 5 8410-2 ####[facility] LABORATORYCLIA [id number] [place] [id number] [place] Hematocrit (Bld) [Volume fraction] 35.3 % Low 36.0-46.0 [facility] Comment on above: Order Comment: Speci men Type: BLOOD SPECIMENOrdering Facility: [facility] Address: [address] [place] [address] Performed By: #### 5 8410-2 ####[facility] LABORATORYCLIA [id number] [place] [address] [place] Hemoglobin (Bld) [Mass/Vol] 11.8 g/dL Normal 11.5-15.5 [facility] Comment on above: Order Comment: Speci men Type: BLOOD SPECIMENOrdering Facility: [facility] Address: [address] [place] [address] Performed By: #### 5 8410-2 ####[facility] LABORATORYCLIA [id number] [place] [address] [place] MCH (RBC) [Entitic mass] 29.6 pg Normal 26.0-34.0 [facility] Comment on above: Order Comment: Speci men Type: BLOOD SPECIMENOrdering Facility: [facility] Address: [address] [place] [address] Performed By: #### 5 8410-2 ####[facility] LABORATORYCLIA [id number] [address] [place] MCHC (RBC) [Mass/Vol] 33.4 g/dL Normal 30.5-36.0 [facility] Comment on above: Order Comment: Speci men Type: BLOOD SPECIMENOrdering Facility: [facility] Address: [address] [place] [address] Performed By: #### 5 8410-2 ####[facility] LABORATORYCLIA [id number] [address] [place] MCV (RBC) [Entitic vol] 88.7 fL Normal 80.0-100.0 [facility] Comment on above: Order Comment: Speci men Type: BLOOD SPECIMENOrdering Facility: [facility] Address: [address] [place] [address] Performed By: #### 5 8410-2 ####[facility] LABORATORYCLIA [id number] [address] [place] Nucleated RBC (Bld) [#/Vol] 10*3/uL Normal <0.01 [facility] Comment on above: Order Comment: Speci men Type: BLOOD SPECIMENOrdering Facility: [facility] Address: [address] [place] [address] Performed By: #### 5 8410-2 ####[facility] LABORATORYCLIA [id number] [place] [id number] [place] Platelet mean volume (Bld) [Entitic vol] 8.5 fL Low 9.0-12.7 [facility] Comment on above: Order Comment: Speci men Type: BLOOD SPECIMENOrdering Facility: [facility] Address: [address] [place] [address] Performed By: #### 5 8410-2 ####[facility] LABORATORYCLIA [id number] [place] [address] [place] Platelets (Bld) [#/Vol] 297 10*3/uL Normal 150-400 [facility] Comment on above: Order Comment: Speci men Type: BLOOD SPECIMENOrdering Facility: [facility] Address: [address] [place] [address] Performed By: #### 5 8410-2 ####[facility] LABORATORYCLIA [id number] [place] [address] [place] RBC (Bld) [#/Vol] 3.98 10*6/uL Normal 3.90-5.20 [facility] Comment on above: Order Comment: Speci men Type: BLOOD SPECIMENOrdering Facility: [facility] Address: [address] [place] [address] Performed By: #### 5 8410-2 ####[facility] LABORATORYCLIA [id number] [place] [id number] [place] WBC (Bld) [#/Vol] 5.99 10*3/uL Normal 3.70-11.00 [facility] Comment on above: Order Comment: Speci men Type: BLOOD SPECIMENOrdering Facility: [facility] Address: [address] [place] [address] Performed By: #### 5 8410-2 ####[facility] LABORATORYCLIA [id number] [place] [id number] [place] CNPNon 09-01-2023 CNPN Normal [facility] Erythrocyte distribution wid th Auto (RBC) [Ratio]on 09-01-2023 Erythrocyte distribution width (RBC) [Ratio] 15.2 % 11.5-15.0 [facility] Hematocrit Auto (Bld) [Volum e fraction]on 09-01-2023 Hematocrit (Bld) [Volume fraction] 35.3 % 36.0-46.0 [facility] Hemoglobin [Mass/volume] in Bloodon 09-01-2023 Hemoglobin (Bld) [Mass/Vol] 11.8 g/dL 11.5-15.5 [facility] Laboratory - Chemistry and C hemistry - challengeon 09-01-2023 Calcium [Mass/Vol] 8.8 mg/dL 8.5-10.2 [facility] Chloride [Moles/Vol] 101 mmol/L 97-105 [facility] CO2 [Moles/Vol] 27 mmol/L 22-30 [facility] Creatinine [Mass/Vol] 0.77 mg/dL 0.58-0.96 [facility] Glucose [Mass/Vol] 95 mg/dL 74-99 [facility] Comment on above: The [place] Diabete s Association (ADA) provides guidance for cutoff values for fasting glucose and random glucose. The ADA defines fasting as no caloric intake for at least 8 hours. Fasting plasma glucose results between 100 to 125 mg/dL indicate increased risk for diabetes (prediabetes).Fasting plasma glucose results greater than or equal to 126 mg/dL meet the criteria for diagnosis of diabetes. In the absence of unequivocal hyperglycemia, results should be confirmed by repeat testing. In a patient with classic symptoms of hyperglycemia or hyperglycemic crisis, random plasma glucose results greater than or equal to 200 mg/dL meet the criteria for diagnosis of diabetes.Reference: Standards of Medical Care in Diabetes 2016, [place] [employer]. Diabetes Care. 2016.39(Suppl 1). Magnesium [Mass/Vol] 2.2 mg/dL 1.7-2.3 [facility] Potassium [Moles/Vol] 4.2 mmol/L 3.7-5.1 [facility] Sodium [Moles/Vol] 141 mmol/L 136-144 [facility] Urea nitrogen [Mass/Vol] 22 mg/dL 7-21 [facility] Leukocytes [#/volume] correc french for nucleated erythrocytes in Blood by Automated counon 09-01-2023 WBC corrected for nucl RBC Auto (Bld) [#/Vol] 5.99 k/uL 3.70-11.00 [facility] MCH Auto (RBC) [Entitic mass ]on 09-01-2023 MCH (RBC) [Entitic mass] 29.6 pg 26.0-34.0 [facility] MCHC Auto (RBC) [Mass/Vol]on 09-01-2023 MCHC (RBC) [Mass/Vol] 33.4 g/dL 30.5-36.0 [facility] MCV Auto (RBC) [Entitic vol] on 09-01-2023 MCV (RBC) [Entitic vol] 88.7 fL 80.0-100.0 [facility] Magnesium SerPl-mCncon 09-01 Magnesium [Mass/Vol] 2.2 mg/dL Normal 1.7-2.3 [facility] Comment on above: Order Comment: Speci men Type: BLOOD SPECIMENOrdering Facility: [facility] Address: [address] [place] [address] Performed By: #### 2 4321-2, 2777-1, 04521-8 ####[facility] LABORATORYCLIA [id number] [address] [place] No Panel Informationon 09-01 Estimated GFR (CKD-EPI) 83 mL/min/1.73m??? >=60 [facility] Comment on above: Estimated Glomerular Filtration Rate (eGFR) is calculated using the 2020 CKD-EPI creatinine equation. This equation utilizes serum creatinine, sex, and age as parameters. The creatinine assay has traceable calibration to isotope dilution-mass spectrometry. Refer to KDIGO guidelines for clinical interpretation. In patients with unstable renal function, e.g. those with acute kidney injury, the eGFR may not accurately reflect actual GFR. Phosphorus Level 4.3 mg/dL 2.7-4.8 [facility] Nucleated RBC Auto (Bld) [#/ Vol]on 09-01-2023 Nucleated RBC (Bld) [#/Vol] 10*3/uL <0.01 [facility] Phosphate SerPl-mCncon 09-01 Phosphate [Mass/Vol] 4.3 mg/dL Normal 2.7-4.8 [facility] Comment on above: Order Comment: Speci men Type: BLOOD SPECIMENOrdering Facility: [facility] Address: [address] [place] [address] Performed By: #### 2 4321-2, 2777-1, 48433-5 ####[facility] LABORATORYCLIA [id number] [place] [address] [place] Platelet mean volume Auto (B ld) [Entitic vol]on 09-01-2023 Platelet mean volume (Bld) [Entitic vol] 8.5 fL 9.0-12.7 [facility] Platelets Auto (Bld) [#/Vol] on 09-01-2023 Platelets (Bld) [#/Vol] 297 10*3/uL 150-400 [facility] RBC Auto (Bld) [#/Vol]on RBC (Bld) [#/Vol] 3.98 10*6/uL 3.90-5.20 [facility] Serum or plasma anion gap de terminationon 09-01-2023 Anion gap [Moles/Vol] 13 mmol/L 9-18 [facility] ALLIED HEALTHon 08-31-2023 ALLIED HEALTH Normal [facility] ALLIED HEALTH Normal [facility] Automated epithelial cells c ount in urine sediment (number/area)on 08-31-2023 Epithelial cells Auto (Urine sed) [#/Area] Few [HPF] [facility] Automated leukocytes count i n urine sediment (number/area)on 08-31-2023 WBC Auto (Urine sed) [#/Area] 3-5 /HPF 0-3 /HPF [facility] Automated urine hyaline cast s count (number/volume)on 08-31-2023 Hyaline casts Auto (U) [#/Vol] 4-10 /LPF 0 /LPF [facility] Automated urine specific gra vity by refractometryon 08-31-2023 Specific gravity Refractometry automated (U) [Rel density] >1.050 1.005-1.03 0 [facility] Basophils Auto (Bld) [#/Vol] on 08-31-2023 Basophils (Bld) [#/Vol] 10*3/uL <0.11 [facility] Basophils/100 WBC Auto (Bld) on 08-31-2023 Basophils/100 WBC (Bld) 0.2 % [facility] Bilirubin Auto test strip (U ) [Mass/Vol]on 08-31-2023 Bilirubin (U) [Mass/Vol] Negative Negative [facility] Blood manual differential co mment interpretation narrativeon 08-31-2023 Manual differential comment Ankush (Bld) [Interp] Auto [facility] CASE MGT INIT ASSESon 2023 CASE MGT INIT ASSES Normal [facility] CBC W Auto Differential pane l (Bld)on 08-31-2023 Basophils (Bld) [#/Vol] 10*3/uL Normal <0.11 [facility] Comment on above: Order Comment: Speci men Type: BLOOD SPECIMENOrdering Facility: [facility] Address: [address] [place] [address] Performed By: #### 5 7021-8 ####[facility] [facility] LABORATORYCLIA [id number] [place] [address] [place] Basophils/100 WBC (Bld) 0.2 % Normal [facility] Comment on above: Order Comment: Speci men Type: BLOOD SPECIMENOrdering Facility: [facility] Address: [address] [place] [address] Performed By: #### 5 7021-8 ####[facility] LABORATORYCLIA [id number] [place] [address] [place] Differential cell count method Nom (Bld) Auto Normal [facility] Comment on above: Order Comment: Speci men Type: BLOOD SPECIMENOrdering Facility: [facility] Address: [address] [place] [address] Performed By: #### 5 7021-8 ####[facility] LABORATORYCLIA [id number] [place] [address] [place] Eosinophils (Bld) [#/Vol] 0.09 10*3/uL Normal <0.46 [facility] Comment on above: Order Comment: Speci men Type: BLOOD SPECIMENOrdering Facility: [facility] Address: [address] [place] [address] Performed By: #### 5 7021-8 ####[facility] [facility] LABORATORYCLIA [id number] [place] [id number] [place] Eosinophils/100 WBC (Bld) 1.0 % Normal [facility] Comment on above: Order Comment: Speci men Type: BLOOD SPECIMENOrdering Facility: [facility] Address: [address] [place] [address] Performed By: #### 5 7021-8 ####[facility] [facility] LABORATORYCLIA [id number] [place] [address] [place] Erythrocyte distribution width (RBC) [Ratio] 14.6 % Normal 11.5-15.0 [facility] Comment on above: Order Comment: Speci men Type: BLOOD SPECIMENOrdering Facility: [facility] Address: [address] [place] [address] Performed By: #### 5 7021-8 ####[facility] [facility] LABORATORYCLIA [id number] [place] [address] [place] Hematocrit (Bld) [Volume fraction] 40.9 % Normal 36.0-46.0 [facility] Comment on above: Order Comment: Speci men Type: BLOOD SPECIMENOrdering Facility: [facility] Address: [address] [place] [address] Performed By: #### 5 7021-8 ####[facility] [facility] LABORATORYCLIA [id number] [place] [address] [place] Hemoglobin (Bld) [Mass/Vol] 14.4 g/dL Normal 11.5-15.5 [facility] Comment on above: Order Comment: Speci men Type: BLOOD SPECIMENOrdering Facility: [facility] Address: [address] [place] [address] Performed By: #### 5 7021-8 ####[facility] LABORATORYCLIA [id number] [place] [address] [place] Immature granulocytes (Bld) [#/Vol] 0.08 10*3/uL Normal <0.10 [facility] Comment on above: Order Comment: Speci men Type: BLOOD SPECIMENOrdering Facility: [facility] Address: [address] [place] [address] Performed By: #### 5 7021-8 ####[facility] LABORATORYCLIA [id number] [address] [place] [facility] Immature granulocytes/100 WBC (Bld) 0.9 % Normal [facility] Comment on above: Order Comment: Speci men Type: BLOOD SPECIMENOrdering Facility: [facility] Address: [address] [place] [address] Performed By: #### 5 7021-8 ####[facility] LABORATORYCLIA [id number] [address] Lymphocytes (Bld) [#/Vol] 1.06 10*3/uL Normal 1.00-4.00 [facility] Comment on above: Order Comment: Speci men Type: BLOOD SPECIMENOrdering Facility: [facility] Address: [address] [place] [address] Performed By: #### 5 7021-8 ####[facility] LABORATORYCLIA [id number] [address] Lymphocytes/100 WBC (Bld) 11.4 % Normal [facility] Comment on above: Order Comment: Speci men Type: BLOOD SPECIMENOrdering Facility: [facility] Address: [address] [place] [address] Performed By: #### 5 7021-8 ####[facility] LABORATORYCLIA [id number] [address] [place] MCH (RBC) [Entitic mass] 29.8 pg Normal 26.0-34.0 [facility] Comment on above: Order Comment: Speci men Type: BLOOD SPECIMENOrdering Facility: [facility] Address: [address] [place] [address] Performed By: #### 5 7021-8 ####[facility] LABORATORYCLIA [id number] [address] [place] MCHC (RBC) [Mass/Vol] 35.2 g/dL Normal 30.5-36.0 [facility] Comment on above: Order Comment: Speci men Type: BLOOD SPECIMENOrdering Facility: [facility] Address: [address] [place] [address] Performed By: #### 5 7021-8 ####[facility] LABORATORYCLIA [id number] [place] [address] [place] MCV (RBC) [Entitic vol] 84.5 fL Normal 80.0-100.0 [facility] Comment on above: Order Comment: Speci men Type: BLOOD SPECIMENOrdering Facility: [facility] Address: [address] [place] [address] Performed By: #### 5 7021-8 ####[facility] LABORATORYCLIA [id number] [place] [address] [place] Monocytes (Bld) [#/Vol] 0.67 10*3/uL Normal <0.87 [facility] Comment on above: Order Comment: Speci men Type: BLOOD SPECIMENOrdering Facility: [facility] Address: [address] [place] [address] Performed By: #### 5 7021-8 ####[facility] LABORATORYCLIA [id number] [address] [place] Monocytes/100 WBC (Bld) 7.2 % Normal [facility] Comment on above: Order Comment: Speci men Type: BLOOD SPECIMENOrdering Facility: [facility] Address: [address] [place] [address] Performed By: #### 5 7021-8 ####[facility] LABORATORYCLIA [id number] [place] [address] [place] Neutrophils (Bld) [#/Vol] 7.36 10*3/uL Normal 1.45-7.50 [facility] Comment on above: Order Comment: Speci men Type: BLOOD SPECIMENOrdering Facility: [facility] Address: [address] [place] [address] Performed By: #### 5 7021-8 ####[facility] LABORATORYCLIA [id number] [place] [id number] [place] Neutrophils/100 WBC (Bld) 79.3 % Normal [facility] Comment on above: Order Comment: Speci men Type: BLOOD SPECIMENOrdering Facility: [facility] Address: [address] [place] [address] Performed By: #### 5 7021-8 ####[facility] LABORATORYCLIA [id number] [place] [id number] [place] Nucleated RBC (Bld) [#/Vol] 10*3/uL Normal <0.01 [facility] Comment on above: Order Comment: Speci men Type: BLOOD SPECIMENOrdering Facility: [facility] Address: [address] [place] [address] Performed By: #### 5 7021-8 ####[facility] LABORATORYCLIA [id number] [place] [id number] [place] Nucleated RBC/100 WBC (Bld) [Ratio] 0.0 /100 WBC Normal [facility] Comment on above: Order Comment: Speci men Type: BLOOD SPECIMENOrdering Facility: [facility] Address: [address] [place] [address] Performed By: #### 5 7021-8 ####[facility] LABORATORYCLIA [id number] [place] [address] [place] Platelet mean volume (Bld) [Entitic vol] 8.8 fL Low 9.0-12.7 [facility] Comment on above: Order Comment: Speci men Type: BLOOD SPECIMENOrdering Facility: [facility] Address: [address] [place] [address] Performed By: #### 5 7021-8 ####[facility] LABORATORYCLIA [id number] [place] [id number] [place] Platelets (Bld) [#/Vol] 411 10*3/uL High 150-400 [facility] Comment on above: Order Comment: Speci men Type: BLOOD SPECIMENOrdering Facility: [facility] Address: [address] [place] [address] Performed By: #### 5 7021-8 ####[facility] LABORATORYCLIA [id number] [place] [address] [place] RBC (Bld) [#/Vol] 4.84 10*6/uL Normal 3.90-5.20 [facility] Comment on above: Order Comment: Speci men Type: BLOOD SPECIMENOrdering Facility: [facility] Address: [address] [place] [address] Performed By: #### 5 7021-8 ####[facility] LABORATORYCLIA [id number] [place] [id number] [place] WBC (Bld) [#/Vol] 9.28 10*3/uL Normal 3.70-11.00 [facility] Comment on above: Order Comment: Speci men Type: BLOOD SPECIMENOrdering Facility: [facility] Address: [address] [place] [address] Performed By: #### 5 7021-8 ####[facility] LABORATORYCLIA [id number] [place] [id number] [place] CONSULTon 08-31-2023 CONSULT Normal [facility] CT ABD/PEL W IVCONon 024 CT ABD/PEL W IVCON Normal [facility] Color Auto (U)on 08-31-2023 Color (U) Yellow [facility] Comprehensive metabolic 2000 panelon 08-31-2023 Albumin [Mass/Vol] 4.6 g/dL Normal 3.9-4.9 [facility] Comment on above: Order Comment: Speci men Type: BLOOD SPECIMENOrdering Facility: [facility] Address: [address] [place] [address] Performed By: #### 1 9123-9, 2777-1, 13802-0 ####[facility] LABORATORYCLIA [id number] [place] [id number] [place] ALP [Catalytic activity/Vol] 351 U/L High 34-123 [facility] Comment on above: Order Comment: Speci men Type: BLOOD SPECIMENOrdering Facility: [facility] Address: [address] [place], [place] [address] Performed By: #### 1 9123-9, 2776-07, 55391-5 ####[facility] LABORATORYCLIA [id number] [place] [address] [place] ALT [Catalytic activity/Vol] 178 U/L High 7-38 [facility] Comment on above: Order Comment: Speci men Type: BLOOD SPECIMENOrdering Facility: [facility] Address: [facility] [place] [address] Performed By: #### 1 9123-9, 2776-07, 08953-0 ####[facility] LABORATORYCLIA [id number] [place] [id number] [place] Anion gap [Moles/Vol] 19 mmol/L High 9-18 [facility] Comment on above: Order Comment: Speci men Type: BLOOD SPECIMENOrdering Facility: [facility] Address: [address] [place] [address] Performed By: #### 1 9123-9, 2776-07, 97052-2 ####[facility] LABORATORYCLIA [id number] [place] [id number] [place] AST [Catalytic activity/Vol] 83 U/L High 13-35 [facility] Comment on above: Order Comment: Speci men Type: BLOOD SPECIMENOrdering Facility: [facility] Address: [facility] [place] [address] Performed By: #### 1 9123-9, 2776-07, ####[facility] LABORATORYCLIA [id number] [place] [id number] [place] Bilirubin [Mass/Vol] 0.5 mg/dL Normal 0.2-1.3 [facility] Comment on above: Order Comment: Speci men Type: BLOOD SPECIMENOrdering Facility: [facility] Address: [facility] [place] [address] Performed By: #### 1 9123-9, 2776-07, 85316-5 ####[facility] LABORATORYCLIA [id number] [place] [id number] [place] Calcium [Mass/Vol] 10.0 mg/dL Normal 8.5-10.2 [facility] Comment on above: Order Comment: Speci men Type: BLOOD SPECIMENOrdering Facility: [facility] Address: [address] [place] [address] Performed By: #### 1 9123-9, 27701-07, 27408-3 ####[facility] LABORATORYCLIA [id number] [place] [id number] [place] Chloride [Moles/Vol] 85 mmol/L Low 97-105 [facility] Comment on above: Order Comment: Speci men Type: BLOOD SPECIMENOrdering Facility: [facility] Address: [address] [place] [address] Performed By: #### 1 9123-9, 2776-07, 34271-1 ####[facility] LABORATORYCLIA [id number] [place] [address] [place] CO2 [Moles/Vol] 21 mmol/L Low 22-30 [facility] Comment on above: Order Comment: Speci men Type: BLOOD SPECIMENOrdering Facility: [facility] Address: [address] [place] [address] Performed By: #### 1 9123-9, 2776-07, ####[facility] LABORATORYCLIA [id number] [place] [address] [place] Creatinine [Mass/Vol] 1.34 mg/dL High 0.58-0.96 [facility] Comment on above: Order Comment: Speci men Type: BLOOD SPECIMENOrdering Facility: [facility] Address: [address] [place] [address] Performed By: #### 1 9123-9, 27701-07, 87886-9 ####[facility] LABORATORYCLIA [id number] [place] [id number] [place] Creatinine and Glomerular filtration rate.predicted panel (S/P/Bld) 43 mL/min/1.73m??? Low >=60 [facility] Comment on above: Order Comment: Speci men Type: BLOOD SPECIMENOrdering Facility: [facility] Address: [address] [place] [address] Result Comment: Farhana mated Glomerular Filtration Rate (eGFR) is calculated using the 2020 CKD-EPI creatinine equation. This equation utilizes serum creatinine, sex, and age as parameters. The creatinine assay has traceable calibration to isotope dilution-mass spectrometry. Refer to KDIGO guidelines for clinical interpretation. In patients with unstable renal function, e.g. those with acute kidney injury, the eGFR may not accurately reflect actual GFR. Performed By: #### 1 9123-9, 2777-, 78335-2 ####[facility] LABORATORYCLIA [id number] [place] [id number] [place] Glucose [Mass/Vol] 159 mg/dL High 74-99 [facility] Comment on above: Order Comment: Mason simpson Type: BLOOD SPECIMENOrdering Facility: [facility] Address: [address] [place] [address] Result Comment: The [place] Diabetes Association (ADA) provides guidance for cutoff values for fasting glucose and random glucose. The ADA defines fasting as no caloric intake for at least 8 hours. Fasting plasma glucose results between 100 to 125 mg/dL indicate increased risk for diabetes (prediabetes).Fasting plasma glucose results greater than or equal to 126 mg/dL meet the criteria for diagnosis of diabetes. In the absence of unequivocal hyperglycemia, results should be confirmed by repeat testing. In a patient with classic symptoms of hyperglycemia or hyperglycemic crisis, random plasma glucose results greater than or equal to 200 mg/dL meet the criteria for diagnosis of diabetes.Reference: Standards of Medical Care in Diabetes 2016, [place] [employer]. Diabetes Care. 2016.39(Suppl 1). Performed By: #### 1 9123-9, 2777-, 73320-6 ####[facility] LABORATORYCLIA [id number] [place] [id number] [place] Potassium [Moles/Vol] 4.2 mmol/L Normal 3.7-5.1 [facility] Comment on above: Order Comment: Mason simpson Type: BLOOD SPECIMENOrdering Facility: [facility] Address: [address] [place] [address] Performed By: #### 1 9123-9, 27701-07, 92085-7 ####[facility] LABORATORYCLIA [id number] [place] [address] [place] Protein [Mass/Vol] 7.4 g/dL Normal 6.3-8.0 [facility] Comment on above: Order Comment: Speci men Type: BLOOD SPECIMENOrdering Facility: [facility] Address: [address] [place] [address] Performed By: #### 1 9123-9, 2777-, 58141-5 ####[facility] LABORATORYCLIA [id number] [place] [id number] [place] Sodium [Moles/Vol] 125 mmol/L Low 136-144 [facility] Comment on above: Order Comment: Speci men Type: BLOOD SPECIMENOrdering Facility: [facility] Address: [address] [place] [address] Performed By: #### 1 9123-9, 2777-, 99417-8 ####[facility] LABORATORYCLIA [id number] [place] [id number] [place] Urea nitrogen [Mass/Vol] 35 mg/dL High 7-21 [facility] Comment on above: Order Comment: Speci men Type: BLOOD SPECIMENOrdering Facility: [facility] Address: [address] [place] [address] Performed By: #### 1 9123-9, 2777-, 66617-4 ####[facility] LABORATORYCLIA [id number] [place] [id number] [place] ECG COMPLETEon 08-31-2023 ECG COMPLETE [facility] ED NOTEon 08-31-2023 ED NOTE HNO ID: [id number] Author: LYUBOV PEREA RN Service: ? Author Type: Registered Nurse Type: ED Notes Filed: 08/31/2023 12:07 Note Text: Report given to KAYA Monsalve. [facility] ED NOTE HNO ID: [id number] Author: DANNIELLE MOLINA RN Service: ? Author Type: Registered Nurse Type: ED Notes Filed: 08/31/2023 09:15 Note Text: Bed: 25-ED Expected date: Expected time: Means of arrival: Comments: triage Normal [facility] ED PROV NOTEon 08-31-2023 ED PROV NOTE Normal [facility] Eosinophils/100 WBC Auto (Bl d)on 08-31-2023 Eosinophils/100 WBC (Bld) 1.0 % [facility] Erythrocyte distribution wid th Auto (RBC) [Ratio]on 08-31-2023 Erythrocyte distribution width (RBC) [Ratio] 14.6 % 11.5-15.0 [facility] HISTORY PHYSICALon HISTORY PHYSICAL Normal [facility] Hematocrit Auto (Bld) [Volum e fraction]on 08-31-2023 Hematocrit (Bld) [Volume fraction] 40.9 % 36.0-46.0 [facility] Hemoglobin [Mass/volume] in Bloodon 08-31-2023 Hemoglobin (Bld) [Mass/Vol] 14.4 g/dL 11.5-15.5 [facility] Ketones Auto test strip (U) [Mass/Vol]on 08-31-2023 Ketones (U) [Mass/Vol] Negative Negat libby, Trace [facility] Laboratory - Chemistry and C hemistry - challengeon 08-31-2023 Albumin [Mass/Vol] 4.6 g/dL 3.9-4.9 [facility] ALP [Catalytic activity/Vol] 351 U/L 34-123 [facility] ALT [Catalytic activity/Vol] 178 U/L 7-38 [facility] AST [Catalytic activity/Vol] 83 U/L 13-35 [facility] Bilirubin [Mass/Vol] 0.5 mg/dL 0.2-1.3 [facility] Calcium [Mass/Vol] 10.0 mg/dL 8.5-10.2 [facility] Chloride [Moles/Vol] 85 mmol/L 97-105 [facility] CO2 [Moles/Vol] 21 mmol/L 22-30 [facility] Creatinine [Mass/Vol] 1.34 mg/dL 0.58-0.96 [facility] Glucose [Mass/Vol] 159 mg/dL 74-99 [facility] Comment on above: The [place] Diabete s Association (ADA) provides guidance for cutoff values for fasting glucose and random glucose. The ADA defines fasting as no caloric intake for at least 8 hours. Fasting plasma glucose results between 100 to 125 mg/dL indicate increased risk for diabetes (prediabetes).Fasting plasma glucose results greater than or equal to 126 mg/dL meet the criteria for diagnosis of diabetes. In the absence of unequivocal hyperglycemia, results should be confirmed by repeat testing. In a patient with classic symptoms of hyperglycemia or hyperglycemic crisis, random plasma glucose results greater than or equal to 200 mg/dL meet the criteria for diagnosis of diabetes.Reference: Standards of Medical Care in Diabetes 2016, [place] [employer]. Diabetes Care. 2016.39(Suppl 1). Magnesium [Mass/Vol] 1.6 mg/dL 1.7-2.3 [facility] Potassium [Moles/Vol] 4.2 mmol/L 3.7-5.1 [facility] Protein [Mass/Vol] 7.4 g/dL 6.3-8.0 [facility] Sodium [Moles/Vol] 125 mmol/L 136-144 [facility] Urea nitrogen [Mass/Vol] 35 mg/dL 7-21 [facility] Laboratory - Hematology and Cell countson 08-31-2023 Eosinophils (Bld) [#/Vol] 0.09 10*3/uL <0.46 [facility] Immature granulocytes (Bld) [#/Vol] 0.08 10*3/uL <0.10 [facility] Immature granulocytes/100 WBC (Bld) 0.9 % [facility] Leukocytes [#/volume] correc french for nucleated erythrocytes in Blood by Automated counon 08-31-2023 WBC corrected for nucl RBC Auto (Bld) [#/Vol] 9.28 k/uL 3.70-11.00 [facility] Lymphocytes Auto (Bld) [#/Vo l]on 08-31-2023 Lymphocytes (Bld) [#/Vol] 1.06 10*3/uL 1.00-4.00 [facility] Lymphocytes/100 WBC Auto (Bl d)on 08-31-2023 Lymphocytes/100 WBC (Bld) 11.4 % [facility] MCH Auto (RBC) [Entitic mass ]on 08-31-2023 MCH (RBC) [Entitic mass] 29.8 pg 26.0-34.0 [facility] MCHC Auto (RBC) [Mass/Vol]on 08-31-2023 MCHC (RBC) [Mass/Vol] 35.2 g/dL 30.5-36.0 [facility] MCV Auto (RBC) [Entitic vol] on 08-31-2023 MCV (RBC) [Entitic vol] 84.5 fL 80.0-100.0 [facility] Magnesium SerPl-mCncon 08-31 Magnesium [Mass/Vol] 1.6 mg/dL Low 1.7-2.3 [facility] Comment on above: Order Comment: Speci men Type: BLOOD SPECIMENOrdering Facility: [facility] Address: [address] [place] [address] Performed By: #### 1 9123-9, 2777-1, 12370-4 ####[facility] LABORATORYCLIA [id number] [place] [address] [place] Monocytes Auto (Bld) [#/Vol] on 08-31-2023 Monocytes (Bld) [#/Vol] 0.67 10*3/uL <0.87 [facility] Monocytes/100 WBC Auto (Bld) on 08-31-2023 Monocytes/100 WBC (Bld) 7.2 % [facility] NURSING PROGon 08-31-2023 NURSING PROG Normal [facility] NURSING PROG Normal [facility] Neutrophils Auto (Bld) [#/Vo l]on 08-31-2023 Neutrophils (Bld) [#/Vol] 7.36 10*3/uL 1.45-7.50 [facility] Neutrophils/100 WBC Auto (Bl d)on 08-31-2023 Neutrophils/100 WBC (Bld) 79.3 % [facility] No Panel Informationon 08-31 Estimated GFR (CKD-EPI) 43 mL/min/1.73m??? >=60 [facility] Comment on above: Estimated Glomerular Filtration Rate (eGFR) is calculated using the 2020 CKD-EPI creatinine equation. This equation utilizes serum creatinine, sex, and age as parameters. The creatinine assay has traceable calibration to isotope dilution-mass spectrometry. Refer to KDIGO guidelines for clinical interpretation. In patients with unstable renal function, e.g. those with acute kidney injury, the eGFR may not accurately reflect actual GFR. Phosphorus Level 4.3 mg/dL 2.7-4.8 [facility] Nucleated RBC Auto (Bld) [#/ Vol]on 08-31-2023 Nucleated RBC (Bld) [#/Vol] 10*3/uL <0.01 [facility] Nucleated erythrocytes [Pres ence] in Blood by Automated counton 08-31-2023 Nucleated RBC Auto Ql (Bld) 0.0 /100{WBC} [facility] Phosphate SerPl-mCncon 08-31 Phosphate [Mass/Vol] 4.3 mg/dL Normal 2.7-4.8 [facility] Comment on above: Order Comment: Speci men Type: BLOOD SPECIMENOrdering Facility: [facility] Address: [address] [place] [address] Performed By: #### 1 9123-9, 2777-1, 95912-0 ####[facility] LABORATORYCLIA [id number] [place] [address] [place] Platelet mean volume Auto (B ld) [Entitic vol]on 08-31-2023 Platelet mean volume (Bld) [Entitic vol] 8.8 fL 9.0-12.7 [facility] Platelets Auto (Bld) [#/Vol] on 08-31-2023 Platelets (Bld) [#/Vol] 411 10*3/uL 150-400 [facility] Protein Auto test strip (U) [Mass/Vol]on 08-31-2023 Protein (U) [Mass/Vol] Trace Trace , Negative [facility] RBC Auto (Bld) [#/Vol]on RBC (Bld) [#/Vol] 4.84 10*6/uL 3.90-5.20 [facility] Serum or plasma anion gap de terminationon 08-31-2023 Anion gap [Moles/Vol] 19 mmol/L 9-18 [facility] Specific gravity Auto test s trip (U) [Rel density]on 08-31-2023 Specific gravity (U) [Rel density] Clear Clear [facility] URINALYSIS, REFLEX MICROSCOP ICon 08-31-2023 Bacteria LM.HPF (Urine sed) [#/Area] Rare Abnormal None Seen [facility] Comment on above: Order Comment: Speci men Type: URINE SPECIMENOrdering Facility: [facility] Address: [address] [place] [address] Performed By: #### L [id number] ####[facility] LABORATORYCLIA [id number] [place] [address] [place] Bilirubin Ql (U) Negative Normal Negative [facility] Comment on above: Order Comment: Speci men Type: URINE SPECIMENOrdering Facility: [facility] Address: [address] [place] [address] Performed By: #### L [id number] ####[facility] LABORATORYCLIA [id number] [place] [address] [place] Clarity (Unsp spec) Clear Normal Clear [facility] Comment on above: Order Comment: Speci men Type: URINE SPECIMENOrdering Facility: [facility] Address: [address] [place] [address] Performed By: #### L [id number] ####[facility] LABORATORYCLIA [id number] [place] [address] [place] Color (U) Yellow Normal Yellow [facility] Comment on above: Order Comment: Speci men Type: URINE SPECIMENOrdering Facility: [facility] Address: [address] [place] [address] Performed By: #### L [id number] ####[facility] LABORATORYCLIA [id number] [place] [address] [place] Epithelial cells LM.HPF (Urine sed) [#/Area] Few Normal [facility] Comment on above: Order Comment: Speci men Type: URINE SPECIMENOrdering Facility: [facility] Address: [address] [place] [address] Performed By: #### L [id number] ####[facility] LABORATORYCLIA [id number] [address] Glucose Test strip (U) [Mass/Vol] Negative Normal Trace, Negative [facility] Comment on above: Order Comment: Speci men Type: URINE SPECIMENOrdering Facility: [facility] Address: [address] [place] [address] Performed By: #### L [id number] ####[facility] LABORATORYCLIA [id number] [place] [address] [place] Hemoglobin Ql (U) Trace Normal Negative, Trace [facility] Comment on above: Order Comment: Speci men Type: URINE SPECIMENOrdering Facility: [facility] Address: [address] [place] [address] Performed By: #### L [id number] ####[facility] LABORATORYCLIA [id number] [address] Hyaline casts (Urine sed) [#/Area] 4-10 /LPF Abnormal 0 /LPF [facility] Comment on above: Order Comment: Speci men Type: URINE SPECIMENOrdering Facility: [facility] Address: [address] [place] [address] Performed By: #### L [id number] ####[facility] LABORATORYCLIA [id number] [address] [place] [facility] Ketones Ql (U) Negative Normal Negative, Trace [facility] Comment on above: Order Comment: Speci men Type: URINE SPECIMENOrdering Facility: [facility] Address: [address] [place] [address] Performed By: #### L [id number] ####[facility] LABORATORYCLIA [id number] [address] [place] Leukocyte esterase Test strip Ql (U) Negative Normal Negative, 25 Melody/uL [facility] Comment on above: Order Comment: Speci men Type: URINE SPECIMENOrdering Facility: [facility] Address: [address] [place] [address] Performed By: #### L [id number] ####[facility] LABORATORYCLIA [id number] [place] [address] [place] Nitrite Ql (U) Negative Normal Negative [facility] Comment on above: Order Comment: Speci men Type: URINE SPECIMENOrdering Facility: [facility] Address: [address] [place] [address] Performed By: #### L [id number] ####[facility] LABORATORYCLIA [id number] [place] [id number] [place] pH (U) 6.0 [pH] Normal 5.0-8.0 [facility] Comment on above: Order Comment: Speci men Type: URINE SPECIMENOrdering Facility: [facility] Address: [address] [place] [address] Performed By: #### L [id number] ####[facility] LABORATORYCLIA [id number] [place] [address] [place] Protein (U) [Mass/Vol] Trace Normal Trace , Negative [facility] Comment on above: Order Comment: Speci men Type: URINE SPECIMENOrdering Facility: [facility] Address: [address] [place] [address] Performed By: #### L [id number] ####[facility] LABORATORYCLIA [id number] [place] [address] [place] RBC LM.HPF (Urine sed) [#/Area] 3-5 /HPF Abnormal 0-3 /HPF [facility] Comment on above: Order Comment: Speci men Type: URINE SPECIMENOrdering Facility: [facility] Address: [address] [place] [address] Performed By: #### L [id number] ####[facility] LABORATORYCLIA [id number] [place] [id number] [place] Specific gravity (U) [Rel density] >1.050 High 1.005-1.03 0 [facility] Comment on above: Order Comment: Speci men Type: URINE SPECIMENOrdering Facility: [facility] Address: [address] [place] [address] Performed By: #### L [id number] ####[facility] LABORATORYCLIA [id number] [place] [address] [place] Urobilinogen Ql (U) Normal Normal Normal [facility] Comment on above: Order Comment: Speci men Type: URINE SPECIMENOrdering Facility: [facility] Address: [address] [place] [address] Performed By: #### L [id number] ####[facility] LABORATORYCLIA [id number] [address] [place] WBC LM.HPF (Urine sed) [#/Area] 0-5 /HPF Normal 0-5 /HPF [facility] Comment on above: Order Comment: Speci men Type: URINE SPECIMENOrdering Facility: [facility] Address: [address] [place] [address] Performed By: #### L [id number] ####[facility] LABORATORYCLIA [id number] [address] [place] Urine bacteria detection by automated methodon 08-31-2023 Bacteria Auto Ql (U) Rare [HPF] None Seen [facility] Urine glucose measurement by test strip (mass/volume)on 08-31-2023 Glucose Test strip (U) [Mass/Vol] Negative Trace, Negative [facility] Urine hemoglobin detection b y automated test stripon 08-31-2023 Hemoglobin Auto test strip Ql (U) Trace Negative, Trace [facility] Urine nitrite detection by a utomated test stripon 08-31-2023 Nitrite Auto test strip Ql (U) Negative Negative [facility] Urine sediment leukocyte cou nt by microscopy (number/high power field)on 08-31-2023 WBC LM.HPF (Urine sed) [#/Area] 0-5 /HPF 0-5 /HPF [facility] Urobilinogen Auto test strip (U) [Mass/Vol]on 08-31-2023 Urobilinogen (U) [Mass/Vol] Normal Normal [facility] XR ABDOMEN 1V SUPINEon 08-31 XR ABDOMEN 1V SUPINE Normal [facility] pH Auto test strip (U)on pH (U) 6.0 [pH] 5.0-8.0 [facility] Basic metabolic 2000 panelon 08-30-2023 Anion gap [Moles/Vol] 10 mmol/L Normal 9-18 [facility] Comment on above: Order Comment: Speci men Type: BLOOD SPECIMENOrdering Facility: [facility] Address: [address] [place] [address] Performed By: #### 2 4321-2 ####[facility] LABORATORYCLIA [id number] [place] [id number] [place] Calcium [Mass/Vol] 9.5 mg/dL Normal 8.5-10.2 [facility] Comment on above: Order Comment: Speci men Type: BLOOD SPECIMENOrdering Facility: [facility] Address: [address] [place] [address] Performed By: #### 2 4321-2 ####[facility] LABORATORYCLIA [id number] [place] [id number] [place] Chloride [Moles/Vol] 100 mmol/L Normal 97-105 [facility] Comment on above: Order Comment: Speci men Type: BLOOD SPECIMENOrdering Facility: [facility] Address: [address] [place] [address] Performed By: #### 2 4321-2 ####[facility] LABORATORYCLIA [id number] [place] [id number] [place] CO2 [Moles/Vol] 24 mmol/L Normal 22-30 [facility] Comment on above: Order Comment: Speci men Type: BLOOD SPECIMENOrdering Facility: [facility] Address: [address] [place] [address] Performed By: #### 2 4321-2 ####[facility] LABORATORYCLIA [id number] [place] [id number] [place] Creatinine [Mass/Vol] 0.63 mg/dL Normal 0.58-0.96 [facility] Comment on above: Order Comment: Speci men Type: BLOOD SPECIMENOrdering Facility: [facility] Address: [address] [place] [address] Performed By: #### 2 4321-2 ####[facility] LABORATORYCLIA [id number] [place] [id number] [place] Creatinine and Glomerular filtration rate.predicted panel (S/P/Bld) 96 mL/min/1.73m??? Normal >=60 [facility] Comment on above: Order Comment: Mason simpson Type: BLOOD SPECIMENOrdering Facility: [facility] Address: [address] [place] [address] Result Comment: Farhana mated Glomerular Filtration Rate (eGFR) is calculated using the 2020 CKD-EPI creatinine equation. This equation utilizes serum creatinine, sex, and age as parameters. The creatinine assay has traceable calibration to isotope dilution-mass spectrometry. Refer to KDIGO guidelines for clinical interpretation. In patients with unstable renal function, e.g. those with acute kidney injury, the eGFR may not accurately reflect actual GFR. Performed By: #### 2 4321-2 ####[facility] LABORATORYCLIA [id number] [place] [address] [place] Glucose [Mass/Vol] 119 mg/dL High 74-99 [facility] Comment on above: Order Comment: Mason simpson Type: BLOOD SPECIMENOrdering Facility: [facility] Address: [address] [place] [address] Result Comment: The [place] Diabetes Association (ADA) provides guidance for cutoff values for fasting glucose and random glucose. The ADA defines fasting as no caloric intake for at least 8 hours. Fasting plasma glucose results between 100 to 125 mg/dL indicate increased risk for diabetes (prediabetes).Fasting plasma glucose results greater than or equal to 126 mg/dL meet the criteria for diagnosis of diabetes. In the absence of unequivocal hyperglycemia, results should be confirmed by repeat testing. In a patient with classic symptoms of hyperglycemia or hyperglycemic crisis, random plasma glucose results greater than or equal to 200 mg/dL meet the criteria for diagnosis of diabetes.Reference: Standards of Medical Care in Diabetes 2016, [place] [employer]. Diabetes Care. 2016.39(Suppl 1). Performed By: #### 2 4321-2 ####[facility] LABORATORYCLIA [id number] [place] [id number] [place] Potassium [Moles/Vol] 4.2 mmol/L Normal 3.7-5.1 [facility] Comment on above: Order Comment: Mason simpson Type: BLOOD SPECIMENOrdering Facility: [facility] Address: [address] [place] [address] Performed By: #### 2 4321-2 ####[facility]ORATORYCLIA [id number] [place] [id number] [place] Sodium [Moles/Vol] 134 mmol/L Low 136-144 [facility] Comment on above: Order Comment: Speci men Type: BLOOD SPECIMENOrdering Facility: [facility] Address: [address] [place] [address] Performed By: #### 2 4321-2 ####[facility]ORATORYCLIA [id number] [place] [address] [place] Urea nitrogen [Mass/Vol] 21 mg/dL Normal 01-27 [facility] Comment on above: Order Comment: Speci men Type: BLOOD SPECIMENOrdering Facility: [facility] Address: [address] [place] [address] Performed By: #### 2 4321-2 ####[facility]ORATORYCLIA [id number] [place] [address] [place] Basophils Auto (Bld) [#/Vol] on 08-30-2023 Basophils (Bld) [#/Vol] 0.03 10*3/uL <0.11 [facility] Basophils/100 WBC Auto (Bld) on 08-30-2023 Basophils/100 WBC (Bld) 0.4 % [facility] Blood manual differential co mment interpretation narrativeon 08-30-2023 Manual differential comment Ankush (Bld) [Interp] Auto [facility] CASE MANAGEMon 08-30-2023 CASE MANAGEM Normal [facility] CBC W Auto Differential pane l (Bld)on 08-30-2023 Basophils (Bld) [#/Vol] 0.03 10*3/uL Normal <0.11 [facility] Comment on above: Order Comment: Speci men Type: BLOOD SPECIMENOrdering Facility: [facility] Address: [address] [place] [address] Performed By: #### 5 7021-8 ####[facility] LABORATORYCLIA [id number] [place] [address] [place] Basophils/100 WBC (Bld) 0.4 % Normal [facility] Comment on above: Order Comment: Speci men Type: BLOOD SPECIMENOrdering Facility: [facility] Address: [address] [place] [address] Performed By: #### 5 7021-8 ####[facility] LABORATORYCLIA [id number] [place] [address] [place] Differential cell count method Nom (Bld) Auto Normal [facility] Comment on above: Order Comment: Speci men Type: BLOOD SPECIMENOrdering Facility: [facility] Address: [address] [place] [address] Performed By: #### 5 7021-8 ####[facility] LABORATORYCLIA [id number] [place] [address] [place] Eosinophils (Bld) [#/Vol] 0.46 10*3/uL High <0.46 [facility] Comment on above: Order Comment: Speci men Type: BLOOD SPECIMENOrdering Facility: [facility] Address: [address] [place] [address] Performed By: #### 5 7021-8 ####[facility] LABORATORYCLIA [id number] [place] [address] [place] Eosinophils/100 WBC (Bld) 6.5 % Normal [facility] Comment on above: Order Comment: Speci men Type: BLOOD SPECIMENOrdering Facility: [facility] Address: [address] [place] [address] Performed By: #### 5 7021-8 ####[facility] LABORATORYCLIA [id number] [place] [address] [place] Erythrocyte distribution width (RBC) [Ratio] 15.1 % High 11.5-15.0 [facility] Comment on above: Order Comment: Speci men Type: BLOOD SPECIMENOrdering Facility: [facility] Address: [address] [place] [address] Performed By: #### 5 7021-8 ####[facility] LABORATORYCLIA [id number] [place] [address] [place] Hematocrit (Bld) [Volume fraction] 37.5 % Normal 36.0-46.0 [facility] Comment on above: Order Comment: Speci men Type: BLOOD SPECIMENOrdering Facility: [facility] Address: [address] [place] [address] Performed By: #### 5 7021-8 ####[facility]ORATORYCLIA [id number] [place] [id number] [place] Hemoglobin (Bld) [Mass/Vol] 12.6 g/dL Normal 11.5-15.5 [facility] Comment on above: Order Comment: Speci men Type: BLOOD SPECIMENOrdering Facility: [facility] Address: [address] [place] [address] Performed By: #### 5 7021-8 ####[facility] LABORATORYCLIA [id number] [place] [address] [place] Immature granulocytes (Bld) [#/Vol] 0.03 10*3/uL Normal <0.10 [facility] Comment on above: Order Comment: Speci men Type: BLOOD SPECIMENOrdering Facility: [facility] Address: [address] [place] [address] Performed By: #### 5 7021-8 ####[facility]ORATORYCLIA [id number] [place] [address] [place] Immature granulocytes/100 WBC (Bld) 0.4 % Normal [facility] Comment on above: Order Comment: Speci men Type: BLOOD SPECIMENOrdering Facility: [facility] Address: [address] [place] [address] Performed By: #### 5 7021-8 ####[facility]ORATORYCLIA [id number] [place] [id number] [place] Lymphocytes (Bld) [#/Vol] 1.01 10*3/uL Normal 1.00-4.00 [facility] Comment on above: Order Comment: Speci men Type: BLOOD SPECIMENOrdering Facility: [facility] Address: [address] [place] [address] Performed By: #### 5 7021-8 ####[facility]ORATORYCLIA [id number] [place] [address] [place] Lymphocytes/100 WBC (Bld) 14.2 % Normal [facility] Comment on above: Order Comment: Speci men Type: BLOOD SPECIMENOrdering Facility: [facility] Address: [address] [place] [address] Performed By: #### 5 7021-8 ####[facility]ORATORYCLIA [id number] [place] [address] [place] MCH (RBC) [Entitic mass] 29.6 pg Normal 26.0-34.0 [facility] Comment on above: Order Comment: Speci men Type: BLOOD SPECIMENOrdering Facility: [facility] Address: [address] [place] [address] Performed By: #### 5 7021-8 ####[facility]ORATORYCLIA [id number] [place] [address] [place] MCHC (RBC) [Mass/Vol] 33.6 g/dL Normal 30.5-36.0 [facility] Comment on above: Order Comment: Speci men Type: BLOOD SPECIMENOrdering Facility: [facility] Address: [address] [place] [address] Performed By: #### 5 7021-8 ####[facility]ORATORYCLIA [id number] [address] [place] MCV (RBC) [Entitic vol] 88.0 fL Normal 80.0-100.0 [facility] Comment on above: Order Comment: Speci men Type: BLOOD SPECIMENOrdering Facility: [facility] Address: [address] [place] [address] Performed By: #### 5 7021-8 ####[facility] LABORATORYCLIA [id number] [address] [place] Monocytes (Bld) [#/Vol] 0.70 10*3/uL Normal <0.87 [facility] Comment on above: Order Comment: Speci men Type: BLOOD SPECIMENOrdering Facility: [facility] Address: [address] [place] [address] Performed By: #### 5 7021-8 ####[facility]ORATORYCLIA [id number] [place] [id number] [place] Monocytes/100 WBC (Bld) 9.8 % Normal [facility] Comment on above: Order Comment: Speci men Type: BLOOD SPECIMENOrdering Facility: [facility] Address: [address] [place] [address] Performed By: #### 5 7021-8 ####[facility]ORATORYCLIA [id number] [place] [id number] [place] Neutrophils (Bld) [#/Vol] 4.89 10*3/uL Normal 1.45-7.50 [facility] Comment on above: Order Comment: Speci men Type: BLOOD SPECIMENOrdering Facility: [facility] Address: [address] [place] [address] Performed By: #### 5 7021-8 ####[facility]ORATORYCLIA [id number] [place] [id number] [place] Neutrophils/100 WBC (Bld) 68.7 % Normal [facility] Comment on above: Order Comment: Speci men Type: BLOOD SPECIMENOrdering Facility: [facility] Address: [address] [place] [address] Performed By: #### 5 7021-8 ####[facility]ORATORYCLIA [id number] [place] [id number] [place] Nucleated RBC (Bld) [#/Vol] 10*3/uL Normal <0.01 [facility] Comment on above: Order Comment: Speci men Type: BLOOD SPECIMENOrdering Facility: [facility] Address: [address] [place] [address] Performed By: #### 5 7021-8 ####[facility]ORATORYCLIA [id number] [place] [id number] [place] Nucleated RBC/100 WBC (Bld) [Ratio] 0.0 /100 WBC Normal [facility] Comment on above: Order Comment: Speci men Type: BLOOD SPECIMENOrdering Facility: [facility] Address: [address] [place] [address] Performed By: #### 5 7021-8 ####[facility]ORATORYCLIA [id number] [place] [id number] [place] Platelet mean volume (Bld) [Entitic vol] 8.9 fL Low 9.0-12.7 [facility] Comment on above: Order Comment: Speci men Type: BLOOD SPECIMENOrdering Facility: [facility] Address: [address] [place] [address] Performed By: #### 5 7021-8 ####[facility]ORATORYCLIA [id number] [place] [id number] [place] Platelets (Bld) [#/Vol] 313 10*3/uL Normal 150-400 [facility] Comment on above: Order Comment: Speci men Type: BLOOD SPECIMENOrdering Facility: [facility] Address: [address] [place] [address] Performed By: #### 5 7021-8 ####[facility]ORATORYCLIA [id number] [place] [id number] [place] RBC (Bld) [#/Vol] 4.26 10*6/uL Normal 3.90-5.20 [facility] Comment on above: Order Comment: Speci men Type: BLOOD SPECIMENOrdering Facility: [facility] Address: [address] [place] [address] Performed By: #### 5 7021-8 ####[facility]ORATORYCLIA [id number] [place] [id number] [place] WBC (Bld) [#/Vol] 7.12 10*3/uL Normal 3.70-11.00 [facility] Comment on above: Order Comment: Speci men Type: BLOOD SPECIMENOrdering Facility: [facility] Address: [address] [place] [address] Performed By: #### 5 7021-8 ####[facility]ORATORYCLIA [id number] [place] [id number] [place] CNDSon 08-30-2023 CNDS Normal [facility] Eosinophils/100 WBC Auto (Bl d)on 08-30-2023 Eosinophils/100 WBC (Bld) 6.5 % [facility] Erythrocyte distribution wid th Auto (RBC) [Ratio]on 08-30-2023 Erythrocyte distribution width (RBC) [Ratio] 15.1 % 11.5-15.0 [facility] Hematocrit Auto (Bld) [Volum e fraction]on 08-30-2023 Hematocrit (Bld) [Volume fraction] 37.5 % 36.0-46.0 [facility] Hemoglobin [Mass/volume] in Bloodon 08-30-2023 Hemoglobin (Bld) [Mass/Vol] 12.6 g/dL 11.5-15.5 [facility] Laboratory - Chemistry and C hemistry - challengeon 08-30-2023 Calcium [Mass/Vol] 9.5 mg/dL 8.5-10.2 [facility] Chloride [Moles/Vol] 100 mmol/L 97-105 [facility] CO2 [Moles/Vol] 24 mmol/L 22-30 [facility] Creatinine [Mass/Vol] 0.63 mg/dL 0.58-0.96 [facility] Glucose [Mass/Vol] 119 mg/dL 74-99 [facility] Comment on above: The [place] Diab[employer] s Association (ADA) provides guidance for cutoff values for fasting glucose and random glucose. The ADA defines fasting as no caloric intake for at least 8 hours. Fasting plasma glucose results between 100 to 125 mg/dL indicate increased risk for diabetes (prediabetes).Fasting plasma glucose results greater than or equal to 126 mg/dL meet the criteria for diagnosis of diabetes. In the absence of unequivocal hyperglycemia, results should be confirmed by repeat testing. In a patient with classic symptoms of hyperglycemia or hyperglycemic crisis, random plasma glucose results greater than or equal to 200 mg/dL meet the criteria for diagnosis of diabetes.Reference: Standards of Medical Care in Diabetes 2016, [place] [employer]. Diabetes Care. 2016.39(Suppl 1). Potassium [Moles/Vol] 4.2 mmol/L 3.7-5.1 [facility] Sodium [Moles/Vol] 134 mmol/L 136-144 [facility] Urea nitrogen [Mass/Vol] 21 mg/dL 01-27 [facility] Laboratory - Hematology and Cell countson 08-30-2023 Eosinophils (Bld) [#/Vol] 0.46 10*3/uL <0.46 [facility] Immature granulocytes (Bld) [#/Vol] 0.03 10*3/uL <0.10 [facility] Immature granulocytes/100 WBC (Bld) 0.4 % [facility] Leukocytes [#/volume] correc french for nucleated erythrocytes in Blood by Automated counon 08-30-2023 WBC corrected for nucl RBC Auto (Bld) [#/Vol] 7.12 k/uL 3.70-11.00 [facility] Lymphocytes Auto (Bld) [#/Vo l]on 08-30-2023 Lymphocytes (Bld) [#/Vol] 1.01 10*3/uL 1.00-4.00 [facility] Lymphocytes/100 WBC Auto (Bl d)on 08-30-2023 Lymphocytes/100 WBC (Bld) 14.2 % [facility] MCH Auto (RBC) [Entitic mass ]on 08-30-2023 MCH (RBC) [Entitic mass] 29.6 pg 26.0-34.0 [facility] MCHC Auto (RBC) [Mass/Vol]on 08-30-2023 MCHC (RBC) [Mass/Vol] 33.6 g/dL 30.5-36.0 [facility] MCV Auto (RBC) [Entitic vol] on 08-30-2023 MCV (RBC) [Entitic vol] 88.0 fL 80.0-100.0 [facility] Monocytes Auto (Bld) [#/Vol] on 08-30-2023 Monocytes (Bld) [#/Vol] 0.70 10*3/uL <0.87 [facility] Monocytes/100 WBC Auto (Bld) on 08-30-2023 Monocytes/100 WBC (Bld) 9.8 % [facility] NURSING PROGon 08-30-2023 NURSING PROG [facility] Neutrophils Auto (Bld) [#/Vo l]on 08-30-2023 Neutrophils (Bld) [#/Vol] 4.89 10*3/uL 1.45-7.50 [facility] Neutrophils/100 WBC Auto (Bl d)on 08-30-2023 Neutrophils/100 WBC (Bld) 68.7 % [facility] No Panel Informationon 08-30 Estimated GFR (CKD-EPI) 96 mL/min/1.73m??? >=60 [facility] Comment on above: Estimated Glomerular Filtration Rate (eGFR) is calculated using the 2020 CKD-EPI creatinine equation. This equation utilizes serum creatinine, sex, and age as parameters. The creatinine assay has traceable calibration to isotope dilution-mass spectrometry. Refer to KDIGO guidelines for clinical interpretation. In patients with unstable renal function, e.g. those with acute kidney injury, the eGFR may not accurately reflect actual GFR. Nucleated RBC Auto (Bld) [#/ Vol]on 08-30-2023 Nucleated RBC (Bld) [#/Vol] 10*3/uL <0.01 [facility] Nucleated erythrocytes [Pres ence] in Blood by Automated counton 08-30-2023 Nucleated RBC Auto Ql (Bld) 0.0 /100{WBC} [facility] Platelet mean volume Auto (B ld) [Entitic vol]on 08-30-2023 Platelet mean volume (Bld) [Entitic vol] 8.9 fL 9.0-12.7 [facility] Platelets Auto (Bld) [#/Vol] on 08-30-2023 Platelets (Bld) [#/Vol] 313 10*3/uL 150-400 [facility] RBC Auto (Bld) [#/Vol]on RBC (Bld) [#/Vol] 4.26 10*6/uL 3.90-5.20 [facility] Serum or plasma anion gap de terminationon 08-30-2023 Anion gap [Moles/Vol] 10 mmol/L 9-18 [facility] Basic metabolic 2000 panelon 08-29-2023 Anion gap [Moles/Vol] 12 mmol/L Normal 9-18 [facility] Comment on above: Order Comment: Speci men Type: BLOOD SPECIMENOrdering Facility: [facility] Address: [address] [place] [address] Performed By: #### 2 4321-2 ####[facility] LABORATORYCLIA [id number] [place] [address] [place] Calcium [Mass/Vol] 9.1 mg/dL Normal 8.5-10.2 [facility] Comment on above: Order Comment: Speci men Type: BLOOD SPECIMENOrdering Facility: [facility] Address: [address] [place] [address] Performed By: #### 2 4321-2 ####[facility] LABORATORYCLIA [id number] [place] [id number] [place] Chloride [Moles/Vol] 106 mmol/L High 97-105 [facility] Comment on above: Order Comment: Speci men Type: BLOOD SPECIMENOrdering Facility: [facility] Address: [address] [place] [address] Performed By: #### 2 4321-2 ####[facility] LABORATORYCLIA [id number] [place] [id number] [place] CO2 [Moles/Vol] 22 mmol/L Normal 22-30 [facility] Comment on above: Order Comment: Speci men Type: BLOOD SPECIMENOrdering Facility: [facility] Address: [address] [place] [address] Performed By: #### 2 4321-2 ####[facility] LABORATORYCLIA [id number] [place] [id number] [place] Creatinine [Mass/Vol] 0.87 mg/dL Normal 0.58-0.96 [facility] Comment on above: Order Comment: Speci men Type: BLOOD SPECIMENOrdering Facility: [facility] Address: [address] [place] [address] Performed By: #### 2 4321-2 ####[facility] LABORATORYCLIA [id number] [place] [id number] [place] Creatinine and Glomerular filtration rate.predicted panel (S/P/Bld) 72 mL/min/1.73m??? Normal >=60 [facility] Comment on above: Order Comment: Speci men Type: BLOOD SPECIMENOrdering Facility: [facility] Address: [address] [place] [address] Result Comment: Farhana mated Glomerular Filtration Rate (eGFR) is calculated using the 2020 CKD-EPI creatinine equation. This equation utilizes serum creatinine, sex, and age as parameters. The creatinine assay has traceable calibration to isotope dilution-mass spectrometry. Refer to KDIGO guidelines for clinical interpretation. In patients with unstable renal function, e.g. those with acute kidney injury, the eGFR may not accurately reflect actual GFR. Performed By: #### 2 4321-2 ####[facility] LABORATORYCLIA [id number] [place] [address] [place] Glucose [Mass/Vol] 109 mg/dL High 74-99 [facility] Comment on above: Order Comment: Mason simpson Type: BLOOD SPECIMENOrdering Facility: [facility] Address: [address] [place] [address] Result Comment: The [place] Diabetes Association (ADA) provides guidance for cutoff values for fasting glucose and random glucose. The ADA defines fasting as no caloric intake for at least 8 hours. Fasting plasma glucose results between 100 to 125 mg/dL indicate increased risk for diabetes (prediabetes).Fasting plasma glucose results greater than or equal to 126 mg/dL meet the criteria for diagnosis of diabetes. In the absence of unequivocal hyperglycemia, results should be confirmed by repeat testing. In a patient with classic symptoms of hyperglycemia or hyperglycemic crisis, random plasma glucose results greater than or equal to 200 mg/dL meet the criteria for diagnosis of diabetes.Reference: Standards of Medical Care in Diabetes 2016, [place] [employer]. Diabetes Care. 2016.39(Suppl 1). Performed By: #### 2 4321-2 ####[facility] LABORATORYCLIA [id number] [place] [id number] [place] Potassium [Moles/Vol] 4.3 mmol/L Normal 3.7-5.1 [facility] Comment on above: Order Comment: Mason simpson Type: BLOOD SPECIMENOrdering Facility: [facility] Address: [address] [place] [address] Performed By: #### 2 4321-2 ####[facility] LABORATORYCLIA [id number] [place] [id number] [place] Sodium [Moles/Vol] 140 mmol/L Normal 136-144 [facility] Comment on above: Order Comment: Speci men Type: BLOOD SPECIMENOrdering Facility: [facility] Address: [address] [place] [address] Performed By: #### 2 4321-2 ####[facility] LABORATORYCLIA [id number] [place] [id number] [place] Urea nitrogen [Mass/Vol] 19 mg/dL Normal 7-21 [facility] Comment on above: Order Comment: Speci men Type: BLOOD SPECIMENOrdering Facility: [facility] Address: [address] [place] [address] Performed By: #### 2 4321-2 ####[facility] LABORATORYCLIA [id number] [place] [address] [place] Basophils Auto (Bld) [#/Vol] on 08-29-2023 Basophils (Bld) [#/Vol] 10*3/uL <0.11 [facility] Basophils/100 WBC Auto (Bld) on 08-29-2023 Basophils/100 WBC (Bld) 0.3 % [facility] Blood manual differential co mment interpretation narrativeon 08-29-2023 Manual differential comment Ankush (Bld) [Interp] Auto [facility] CASE MANAGEMon 08-29-2023 CASE MANAGEM Normal [facility] CBC W Auto Differential pane l (Bld)on 08-29-2023 Basophils (Bld) [#/Vol] 10*3/uL Normal <0.11 [facility] Comment on above: Order Comment: Speci men Type: BLOOD SPECIMENOrdering Facility: [facility] Address: [address] [place] [address] Performed By: #### 5 7021-8 ####[facility] LABORATORYCLIA [id number] [place] [address] [place] Basophils/100 WBC (Bld) 0.3 % Normal [facility] Comment on above: Order Comment: Speci men Type: BLOOD SPECIMENOrdering Facility: [facility] Address: [address] [place] [address] Performed By: #### 5 7021-8 ####[facility] LABORATORYCLIA [id number] [place] [id number] [place] Differential cell count method Nom (Bld) Auto Normal [facility] Comment on above: Order Comment: Speci men Type: BLOOD SPECIMENOrdering Facility: [facility] Address: [address] [place] [address] Performed By: #### 5 7021-8 ####[facility] LABORATORYCLIA [id number] [place] [address] [place] Eosinophils (Bld) [#/Vol] 0.44 10*3/uL Normal <0.46 [facility] Comment on above: Order Comment: Speci men Type: BLOOD SPECIMENOrdering Facility: [facility] Address: [address] [place] [address] Performed By: #### 5 7021-8 ####[facility] LABORATORYCLIA [id number] [address] [place] Eosinophils/100 WBC (Bld) 6.6 % Normal [facility] Comment on above: Order Comment: Speci men Type: BLOOD SPECIMENOrdering Facility: [facility] Address: [address] [place] [address] Performed By: #### 5 7021-8 ####[facility] LABORATORYCLIA [id number] [address] [place] Erythrocyte distribution width (RBC) [Ratio] 15.0 % Normal 11.5-15.0 [facility] Comment on above: Order Comment: Speci men Type: BLOOD SPECIMENOrdering Facility: [facility] Address: [address] [place] [address] Performed By: #### 5 7021-8 ####[facility] LABORATORYCLIA [id number] [place] [id number] [place] Hematocrit (Bld) [Volume fraction] 36.4 % Normal 36.0-46.0 [facility] Comment on above: Order Comment: Speci men Type: BLOOD SPECIMENOrdering Facility: [facility] Address: [address] [place] [address] Performed By: #### 5 7021-8 ####[facility] LABORATORYCLIA [id number] [place] [id number] [place] Hemoglobin (Bld) [Mass/Vol] 11.9 g/dL Normal 11.5-15.5 [facility] Comment on above: Order Comment: Speci men Type: BLOOD SPECIMENOrdering Facility: [facility] Address: [address] [place] [address] Performed By: #### 5 7021-8 ####[facility] LABORATORYCLIA [id number] [place] [id number] [place] Immature granulocytes (Bld) [#/Vol] 0.03 10*3/uL Normal <0.10 [facility] Comment on above: Order Comment: Speci men Type: BLOOD SPECIMENOrdering Facility: [facility] Address: [address] [place] [address] Performed By: #### 5 7021-8 ####[facility] LABORATORYCLIA [id number] [place] [address] [place] Immature granulocytes/100 WBC (Bld) 0.4 % Normal [facility] Comment on above: Order Comment: Speci men Type: BLOOD SPECIMENOrdering Facility: [facility] Address: [address] [place] [address] Performed By: #### 5 7021-8 ####[facility] LABORATORYCLIA [id number] [place] [id number] [place] Lymphocytes (Bld) [#/Vol] 0.73 10*3/uL Low 1.00-4.00 [facility] Comment on above: Order Comment: Speci men Type: BLOOD SPECIMENOrdering Facility: [facility] Address: [address] [place] [address] Performed By: #### 5 7021-8 ####[facility] LABORATORYCLIA [id number] [address] [place] Lymphocytes/100 WBC (Bld) 10.9 % Normal [facility] Comment on above: Order Comment: Speci men Type: BLOOD SPECIMENOrdering Facility: [facility] Address: [address] [place] [address] Performed By: #### 5 7021-8 ####[facility] [facility] LABORATORYCLIA [id number] [place] [address] [place] [facility] MCH (RBC) [Entitic mass] 29.6 pg Normal 26.0-34.0 [facility] Comment on above: Order Comment: Speci men Type: BLOOD SPECIMENOrdering Facility: [facility] Address: [address] [place] [address] Performed By: #### 5 7021-8 ####[facility] [facility] LABORATORYCLIA [id number] [place] [address] [place] MCHC (RBC) [Mass/Vol] 32.7 g/dL Normal 30.5-36.0 [facility] Comment on above: Order Comment: Speci men Type: BLOOD SPECIMENOrdering Facility: [facility] Address: [address] [place] [address] Performed By: #### 5 7021-8 ####[facility] [facility] LABORATORYCLIA [id number] [address] [place] MCV (RBC) [Entitic vol] 90.5 fL Normal 80.0-100.0 [facility] Comment on above: Order Comment: Speci men Type: BLOOD SPECIMENOrdering Facility: [facility] Address: [address] [place] [address] Performed By: #### 5 7021-8 ####[facility] [facility] LABORATORYCLIA [id number] [address] [place] Monocytes (Bld) [#/Vol] 0.59 10*3/uL Normal <0.87 [facility] Comment on above: Order Comment: Speci men Type: BLOOD SPECIMENOrdering Facility: [facility] Address: [address] [place] [address] Performed By: #### 5 7021-8 ####[facility] [facility] LABORATORYCLIA [id number] [address] [place] Monocytes/100 WBC (Bld) 8.8 % Normal [facility] Comment on above: Order Comment: Speci men Type: BLOOD SPECIMENOrdering Facility: [facility] Address: [address] [place] [address] Performed By: #### 5 7021-8 ####[facility] LABORATORYCLIA [id number] [place] [id number] [place] Neutrophils (Bld) [#/Vol] 4.87 10*3/uL Normal 1.45-7.50 [facility] Comment on above: Order Comment: Speci men Type: BLOOD SPECIMENOrdering Facility: [facility] Address: [address] [place] [address] Performed By: #### 5 7021-8 ####[facility] LABORATORYCLIA [id number] [place] [id number] [place] Neutrophils/100 WBC (Bld) 73.0 % Normal [facility] Comment on above: Order Comment: Speci men Type: BLOOD SPECIMENOrdering Facility: [facility] Address: [address] [place] [address] Performed By: #### 5 7021-8 ####[facility] LABORATORYCLIA [id number] [place] [id number] [place] Nucleated RBC (Bld) [#/Vol] 10*3/uL Normal <0.01 [facility] Comment on above: Order Comment: Speci men Type: BLOOD SPECIMENOrdering Facility: [facility] Address: [address] [place] [address] Performed By: #### 5 7021-8 ####[facility] LABORATORYCLIA [id number] [place] [id number] [place] Nucleated RBC/100 WBC (Bld) [Ratio] 0.0 /100 WBC Normal [facility] Comment on above: Order Comment: Speci men Type: BLOOD SPECIMENOrdering Facility: [facility] Address: [address] [place] [address] Performed By: #### 5 7021-8 ####[facility] LABORATORYCLIA [id number] [place] [id number] [place] Platelet mean volume (Bld) [Entitic vol] 8.9 fL Low 9.0-12.7 [facility] Comment on above: Order Comment: Speci men Type: BLOOD SPECIMENOrdering Facility: [facility] Address: [address] [place] [address] Performed By: #### 5 7021-8 ####[facility] LABORATORYCLIA [id number] [place] [id number] [place] Platelets (Bld) [#/Vol] 266 10*3/uL Normal 150-400 [facility] Comment on above: Order Comment: Speci men Type: BLOOD SPECIMENOrdering Facility: [facility] Address: [address] [place] [address] Performed By: #### 5 7021-8 ####[facility] LABORATORYCLIA [id number] [place] [address] [place] RBC (Bld) [#/Vol] 4.02 10*6/uL Normal 3.90-5.20 [facility] Comment on above: Order Comment: Speci men Type: BLOOD SPECIMENOrdering Facility: [facility] Address: [address] [place] [address] Performed By: #### 5 7021-8 ####[facility] LABORATORYCLIA [id number] [place] [id number] [place] WBC (Bld) [#/Vol] 6.68 10*3/uL Normal 3.70-11.00 [facility] Comment on above: Order Comment: Speci men Type: BLOOD SPECIMENOrdering Facility: [facility] Address: [address] [place] [address] Performed By: #### 5 7021-8 ####[facility] LABORATORYCLIA [id number] [place] [id number] [place] CONSULTon 08-29-2023 CONSULT Normal [facility] Eosinophils/100 WBC Auto (Bl d)on 08-29-2023 Eosinophils/100 WBC (Bld) 6.6 % [facility] Erythrocyte distribution wid th Auto (RBC) [Ratio]on 08-29-2023 Erythrocyte distribution width (RBC) [Ratio] 15.0 % 11.5-15.0 [facility] Hematocrit Auto (Bld) [Volum e fraction]on 08-29-2023 Hematocrit (Bld) [Volume fraction] 36.4 % 36.0-46.0 [facility] Hemoglobin [Mass/volume] in Bloodon 08-29-2023 Hemoglobin (Bld) [Mass/Vol] 11.9 g/dL 11.5-15.5 [facility] Laboratory - Chemistry and C hemistry - challengeon 08-29-2023 Calcium [Mass/Vol] 9.1 mg/dL 8.5-10.2 [facility] Chloride [Moles/Vol] 106 mmol/L 97-105 [facility] CO2 [Moles/Vol] 22 mmol/L 22-30 [facility] Creatinine [Mass/Vol] 0.87 mg/dL 0.58-0.96 [facility] Glucose [Mass/Vol] 109 mg/dL 74-99 [facility] Comment on above: The [place] Di[employer] Association (ADA) provides guidance for cutoff values for fasting glucose and random glucose. The ADA defines fasting as no caloric intake for at least 8 hours. Fasting plasma glucose results between 100 to 125 mg/dL indicate increased risk for diabetes (prediabetes).Fasting plasma glucose results greater than or equal to 126 mg/dL meet the criteria for diagnosis of diabetes. In the absence of unequivocal hyperglycemia, results should be confirmed by repeat testing. In a patient with classic symptoms of hyperglycemia or hyperglycemic crisis, random plasma glucose results greater than or equal to 200 mg/dL meet the criteria for diagnosis of diabetes.Reference: Standards of Medical Care in Diabetes 2016, [place] [employer]. Diabetes Care. 2016.39(Suppl 1). Potassium [Moles/Vol] 4.3 mmol/L 3.7-5.1 [facility] Sodium [Moles/Vol] 140 mmol/L 136-144 [facility] Urea nitrogen [Mass/Vol] 19 mg/dL 01-27 [facility] Laboratory - Hematology and Cell countson 08-29-2023 Eosinophils (Bld) [#/Vol] 0.44 10*3/uL <0.46 [facility] Immature granulocytes (Bld) [#/Vol] 0.03 10*3/uL <0.10 [facility] Immature granulocytes/100 WBC (Bld) 0.4 % [facility] Leukocytes [#/volume] correc french for nucleated erythrocytes in Blood by Automated counon 08-29-2023 WBC corrected for nucl RBC Auto (Bld) [#/Vol] 6.68 k/uL 3.70-11.00 [facility] Lymphocytes Auto (Bld) [#/Vo l]on 08-29-2023 Lymphocytes (Bld) [#/Vol] 0.73 10*3/uL 1.00-4.00 [facility] Lymphocytes/100 WBC Auto (Bl d)on 08-29-2023 Lymphocytes/100 WBC (Bld) 10.9 % [facility] MCH Auto (RBC) [Entitic mass ]on 08-29-2023 MCH (RBC) [Entitic mass] 29.6 pg 26.0-34.0 [facility] MCHC Auto (RBC) [Mass/Vol]on 08-29-2023 MCHC (RBC) [Mass/Vol] 32.7 g/dL 30.5-36.0 [facility] MCV Auto (RBC) [Entitic vol] on 08-29-2023 MCV (RBC) [Entitic vol] 90.5 fL 80.0-100.0 [facility] Monocytes Auto (Bld) [#/Vol] on 08-29-2023 Monocytes (Bld) [#/Vol] 0.59 10*3/uL <0.87 [facility] Monocytes/100 WBC Auto (Bld) on 08-29-2023 Monocytes/100 WBC (Bld) 8.8 % [facility] NURSING PROGon 08-29-2023 NURSING PROG [facility] Neutrophils Auto (Bld) [#/Vo l]on 08-29-2023 Neutrophils (Bld) [#/Vol] 4.87 10*3/uL 1.45-7.50 [facility] Neutrophils/100 WBC Auto (Bl d)on 08-29-2023 Neutrophils/100 WBC (Bld) 73.0 % [facility] No Panel Informationon 08-29 Estimated GFR (CKD-EPI) 72 mL/min/1.73m??? >=60 [facility] Comment on above: Estimated Glomerular Filtration Rate (eGFR) is calculated using the 2020 CKD-EPI creatinine equation. This equation utilizes serum creatinine, sex, and age as parameters. The creatinine assay has traceable calibration to isotope dilution-mass spectrometry. Refer to KDIGO guidelines for clinical interpretation. In patients with unstable renal function, e.g. those with acute kidney injury, the eGFR may not accurately reflect actual GFR. Nucleated RBC Auto (Bld) [#/ Vol]on 08-29-2023 Nucleated RBC (Bld) [#/Vol] 10*3/uL <0.01 [facility] Nucleated erythrocytes [Pres ence] in Blood by Automated counton 08-29-2023 Nucleated RBC Auto Ql (Bld) 0.0 /100{WBC} [facility] Platelet mean volume Auto (B ld) [Entitic vol]on 08-29-2023 Platelet mean volume (Bld) [Entitic vol] 8.9 fL 9.0-12.7 [facility] Platelets Auto (Bld) [#/Vol] on 08-29-2023 Platelets (Bld) [#/Vol] 266 10*3/uL 150-400 [facility] RBC Auto (Bld) [#/Vol]on RBC (Bld) [#/Vol] 4.02 10*6/uL 3.90-5.20 [facility] Serum or plasma anion gap de terminationon 08-29-2023 Anion gap [Moles/Vol] 12 mmol/L 9-18 [facility] Basic metabolic 2000 panelon 08-28-2023 Anion gap [Moles/Vol] 11 mmol/L Normal 9-18 [facility] Comment on above: Order Comment: Speci men Type: BLOOD SPECIMENOrdering Facility: [facility] Address: [address] [place] [address] Performed By: #### 2 4321-2 ####[facility] LABORATORYCLIA [id number] [place] [address] [place] Calcium [Mass/Vol] 9.3 mg/dL Normal 8.5-10.2 [facility] Comment on above: Order Comment: Speci men Type: BLOOD SPECIMENOrdering Facility: [facility] Address: [address] [place] [address] Performed By: #### 2 4321-2 ####[facility] LABORATORYCLIA [id number] [place] [id number] [place] Chloride [Moles/Vol] 107 mmol/L High 97-105 [facility] Comment on above: Order Comment: Speci men Type: BLOOD SPECIMENOrdering Facility: [facility] Address: [address] [place] [address] Performed By: #### 2 4321-2 ####[facility] LABORATORYCLIA [id number] [place] [id number] [place] CO2 [Moles/Vol] 23 mmol/L Normal 22-30 [facility] Comment on above: Order Comment: Speci men Type: BLOOD SPECIMENOrdering Facility: [facility] Address: [address] [place] [address] Performed By: #### 2 4321-2 ####[facility] [facility] LABORATORYCLIA [id number] [place] [id number] [place] Creatinine [Mass/Vol] 0.78 mg/dL Normal 0.58-0.96 [facility] Comment on above: Order Comment: Speci men Type: BLOOD SPECIMENOrdering Facility: [facility] Address: [address] [place] [address] Performed By: #### 2 4321-2 ####[facility] LABORATORYCLIA [id number] [place] [id number] [facility] Creatinine and Glomerular filtration rate.predicted panel (S/P/Bld) 82 mL/min/1.73m??? Normal >=60 [facility] Comment on above: Order Comment: Speci men Type: BLOOD SPECIMENOrdering Facility: [facility] Address: [address] [place] [address] Result Comment: Farhana mated Glomerular Filtration Rate (eGFR) is calculated using the 2020 CKD-EPI creatinine equation. This equation utilizes serum creatinine, sex, and age as parameters. The creatinine assay has traceable calibration to isotope dilution-mass spectrometry. Refer to KDIGO guidelines for clinical interpretation. In patients with unstable renal function, e.g. those with acute kidney injury, the eGFR may not accurately reflect actual GFR. Performed By: #### 2 4321-2 ####[facility] LABORATORYCLIA [id number] [place] [id number] [place] Glucose [Mass/Vol] 111 mg/dL High 74-99 [facility] Comment on above: Order Comment: Mason simpson Type: BLOOD SPECIMENOrdering Facility: [facility] Address: [address] [place] [address] Result Comment: The [place] Diabetes Association (ADA) provides guidance for cutoff values for fasting glucose and random glucose. The ADA defines fasting as no caloric intake for at least 8 hours. Fasting plasma glucose results between 100 to 125 mg/dL indicate increased risk for diabetes (prediabetes).Fasting plasma glucose results greater than or equal to 126 mg/dL meet the criteria for diagnosis of diabetes. In the absence of unequivocal hyperglycemia, results should be confirmed by repeat testing. In a patient with classic symptoms of hyperglycemia or hyperglycemic crisis, random plasma glucose results greater than or equal to 200 mg/dL meet the criteria for diagnosis of diabetes.Reference: Standards of Medical Care in Diabetes 2016, [place] [employer]. Diabetes Care. 2016.39(Suppl 1). Performed By: #### 2 4321-2 ####[facility] LABORATORYCLIA [id number] [place] [id number] [place] Potassium [Moles/Vol] 4.7 mmol/L Normal 3.7-5.1 [facility] Comment on above: Order Comment: Mason simpson Type: BLOOD SPECIMENOrdering Facility: [facility] Address: [address] [place] [address] Performed By: #### 2 4321-2 ####[facility] LABORATORYCLIA [id number] [place] [id number] [place] Sodium [Moles/Vol] 141 mmol/L Normal 136-144 [facility] Comment on above: Order Comment: Mason simpson Type: BLOOD SPECIMENOrdering Facility: [facility] Address: [address] [place] [address] Performed By: #### 2 4321-2 ####[facility] LABORATORYCLIA [id number] [place] [id number] [place] Urea nitrogen [Mass/Vol] 19 mg/dL Normal 7- [facility] Comment on above: Order Comment: Speci men Type: BLOOD SPECIMENOrdering Facility: [facility] Address: [address] [place] [address] Performed By: #### 2 4321-2 ####[facility] LABORATORYCLIA [id number] [place] [address] [place] Basophils Auto (Bld) [#/Vol] on 08-28-2023 Basophils (Bld) [#/Vol] 10*3/uL <0.11 [facility] Basophils/100 WBC Auto (Bld) on 08-28-2023 Basophils/100 WBC (Bld) 0.1 % [facility] Blood manual differential co mment interpretation narrativeon 08-28-2023 Manual differential comment Ankush (Bld) [Interp] Auto [facility] CASE MANAGEMon 08-28-2023 CASE MANAGEM Normal [facility] CBC W Auto Differential pane l (Bld)on 08-28-2023 Basophils (Bld) [#/Vol] 10*3/uL Normal <0.11 [facility] Comment on above: Order Comment: Speci men Type: BLOOD SPECIMENOrdering Facility: [facility] Address: [address] [place] [address] Performed By: #### 5 7021-8 ####[facility] LABORATORYCLIA [id number] [address] [place] Basophils/100 WBC (Bld) 0.1 % Normal [facility] Comment on above: Order Comment: Speci men Type: BLOOD SPECIMENOrdering Facility: [facility] Address: [address] [place] [address] Performed By: #### 5 7021-8 ####[facility] LABORATORYCLIA [id number] [place] [address] [place] Differential cell count method Nom (Bld) Auto Normal [facility] Comment on above: Order Comment: Speci men Type: BLOOD SPECIMENOrdering Facility: [facility] Address: [address] [place] [address] Performed By: #### 5 7021-8 ####[facility] LABORATORYCLIA [id number] [place] [address] [place] Eosinophils (Bld) [#/Vol] 0.37 10*3/uL Normal <0.46 [facility] Comment on above: Order Comment: Speci men Type: BLOOD SPECIMENOrdering Facility: [facility] Address: [address] [place] [address] Performed By: #### 5 7021-8 ####[facility] LABORATORYCLIA [id number] [address] Eosinophils/100 WBC (Bld) 5.5 % Normal [facility] Comment on above: Order Comment: Speci men Type: BLOOD SPECIMENOrdering Facility: [facility] Address: [address] [place] [address] Performed By: #### 5 7021-8 ####[facility] LABORATORYCLIA [id number] [address] [place] Erythrocyte distribution width (RBC) [Ratio] 15.1 % High 11.5-15.0 [facility] Comment on above: Order Comment: Speci men Type: BLOOD SPECIMENOrdering Facility: [facility] Address: [address] [place] [address] Performed By: #### 5 7021-8 ####[facility] LABORATORYCLIA [id number] [address] [place] Hematocrit (Bld) [Volume fraction] 34.5 % Low 36.0-46.0 [facility] Comment on above: Order Comment: Speci men Type: BLOOD SPECIMENOrdering Facility: [facility] Address: [address] [place] [address] Performed By: #### 5 7021-8 ####[facility] LABORATORYCLIA [id number] [place] [address] [place] Hemoglobin (Bld) [Mass/Vol] 11.0 g/dL Low 11.5-15.5 [facility] Comment on above: Order Comment: Speci men Type: BLOOD SPECIMENOrdering Facility: [facility] Address: [address] [place] [address] Performed By: #### 5 7021-8 ####[facility] LABORATORYCLIA [id number] [place] [id number] [facility] Immature granulocytes (Bld) [#/Vol] 0.03 10*3/uL Normal <0.10 [facility] Comment on above: Order Comment: Speci men Type: BLOOD SPECIMENOrdering Facility: [facility] Address: [address] [place] [address] Performed By: #### 5 7021-8 ####[facility] LABORATORYCLIA [id number] [address] Immature granulocytes/100 WBC (Bld) 0.4 % Normal [facility] Comment on above: Order Comment: Speci men Type: BLOOD SPECIMENOrdering Facility: [facility] Address: [address] [place] [address] Performed By: #### 5 7021-8 ####[facility] LABORATORYCLIA [id number] [place] [address] [place] Lymphocytes (Bld) [#/Vol] 0.61 10*3/uL Low 1.00-4.00 [facility] Comment on above: Order Comment: Speci men Type: BLOOD SPECIMENOrdering Facility: [facility] Address: [address] [place] [address] Performed By: #### 5 7021-8 ####[facility] LABORATORYCLIA [id number] [place] [id number] [place] Lymphocytes/100 WBC (Bld) 9.0 % Normal [facility] Comment on above: Order Comment: Speci men Type: BLOOD SPECIMENOrdering Facility: [facility] Address: [address] [place] [address] Performed By: #### 5 7021-8 ####[facility] LABORATORYCLIA [id number] [place] [id number] [place] MCH (RBC) [Entitic mass] 29.3 pg Normal 26.0-34.0 [facility] Comment on above: Order Comment: Speci men Type: BLOOD SPECIMENOrdering Facility: [facility] Address: [address] [place] [address] Performed By: #### 5 7021-8 ####[facility] LABORATORYCLIA [id number] [place] [address] [place] MCHC (RBC) [Mass/Vol] 31.9 g/dL Normal 30.5-36.0 [facility] Comment on above: Order Comment: Speci men Type: BLOOD SPECIMENOrdering Facility: [facility] Address: [address] [place] [address] Performed By: #### 5 7021-8 ####[facility] LABORATORYCLIA [id number] [place] [address] [place] MCV (RBC) [Entitic vol] 91.8 fL Normal 80.0-100.0 [facility] Comment on above: Order Comment: Speci men Type: BLOOD SPECIMENOrdering Facility: [facility] Address: [address] [place] [address] Performed By: #### 5 7021-8 ####[facility] LABORATORYCLIA [id number] [place] [address] [place] Monocytes (Bld) [#/Vol] 0.44 10*3/uL Normal <0.87 [facility] Comment on above: Order Comment: Speci men Type: BLOOD SPECIMENOrdering Facility: [facility] Address: [address] [place] [address] Performed By: #### 5 7021-8 ####[facility] LABORATORYCLIA [id number] [address] [place] Monocytes/100 WBC (Bld) 6.5 % Normal [facility] Comment on above: Order Comment: Speci men Type: BLOOD SPECIMENOrdering Facility: [facility] Address: [address] [place] [address] Performed By: #### 5 7021-8 ####[facility] LABORATORYCLIA [id number] [place] [address] [place] Neutrophils (Bld) [#/Vol] 5.30 10*3/uL Normal 1.45-7.50 [facility] Comment on above: Order Comment: Speci men Type: BLOOD SPECIMENOrdering Facility: [facility] Address: [address] [place] [address] Performed By: #### 5 7021-8 ####[facility] LABORATORYCLIA [id number] [place] [id number] [place] Neutrophils/100 WBC (Bld) 78.5 % Normal [facility] Comment on above: Order Comment: Speci men Type: BLOOD SPECIMENOrdering Facility: [facility] Address: [address] [place] [address] Performed By: #### 5 7021-8 ####[facility] LABORATORYCLIA [id number] [place] [address] [place] Nucleated RBC (Bld) [#/Vol] 10*3/uL Normal <0.01 [facility] Comment on above: Order Comment: Speci men Type: BLOOD SPECIMENOrdering Facility: [facility] Address: [address] [place] [address] Performed By: #### 5 7021-8 ####[facility] LABORATORYCLIA [id number] [place] [id number] [place] Nucleated RBC/100 WBC (Bld) [Ratio] 0.0 /100 WBC Normal [facility] Comment on above: Order Comment: Speci men Type: BLOOD SPECIMENOrdering Facility: [facility] Address: [address] [place] [address] Performed By: #### 5 7021-8 ####[facility] LABORATORYCLIA [id number] [place] [id number] [place] Platelet mean volume (Bld) [Entitic vol] 8.9 fL Low 9.0-12.7 [facility] Comment on above: Order Comment: Speci men Type: BLOOD SPECIMENOrdering Facility: [facility] Address: [address] [place] [address] Performed By: #### 5 7021-8 ####[facility] LABORATORYCLIA [id number] [place] [id number] [place] Platelets (Bld) [#/Vol] 236 10*3/uL Normal 150-400 [facility] Comment on above: Order Comment: Speci men Type: BLOOD SPECIMENOrdering Facility: [facility] Address: [address] [place] [address] Performed By: #### 5 7021-8 ####[facility] LABORATORYCLIA [id number] [place] [id number] [place] RBC (Bld) [#/Vol] 3.76 10*6/uL Low 3.90-5.20 [facility] Comment on above: Order Comment: Speci men Type: BLOOD SPECIMENOrdering Facility: [facility] Address: [address] [place] [address] Performed By: #### 5 7021-8 ####[facility] LABORATORYCLIA [id number] [place] [id number] [place] WBC (Bld) [#/Vol] 6.76 10*3/uL Normal 3.70-11.00 [facility] Comment on above: Order Comment: Speci men Type: BLOOD SPECIMENOrdering Facility: [facility] Address: [address] [place] [address] Performed By: #### 5 7021-8 ####[facility] LABORATORYCLIA [id number] [place] [id number] [place] CONSULTon 08-28-2023 CONSULT Normal [facility] Eosinophils/100 WBC Auto (Bl d)on 08-28-2023 Eosinophils/100 WBC (Bld) 5.5 % [facility] Erythrocyte distribution wid th Auto (RBC) [Ratio]on 08-28-2023 Erythrocyte distribution width (RBC) [Ratio] 15.1 % 11.5-15.0 [facility] Hematocrit Auto (Bld) [Volum e fraction]on 08-28-2023 Hematocrit (Bld) [Volume fraction] 34.5 % 36.0-46.0 [facility] Hemoglobin [Mass/volume] in Bloodon 08-28-2023 Hemoglobin (Bld) [Mass/Vol] 11.0 g/dL 11.5-15.5 [facility] Laboratory - Chemistry and C hemistry - challengeon 08-28-2023 Calcium [Mass/Vol] 9.3 mg/dL 8.5-10.2 [facility] Chloride [Moles/Vol] 107 mmol/L 97-105 [facility] CO2 [Moles/Vol] 23 mmol/L 22-30 [facility] Creatinine [Mass/Vol] 0.78 mg/dL 0.58-0.96 [facility] Glucose [Mass/Vol] 111 mg/dL 74-99 [facility] Comment on above: The [place] Diab[employer] s Association (ADA) provides guidance for cutoff values for fasting glucose and random glucose. The ADA defines fasting as no caloric intake for at least 8 hours. Fasting plasma glucose results between 100 to 125 mg/dL indicate increased risk for diabetes (prediabetes).Fasting plasma glucose results greater than or equal to 126 mg/dL meet the criteria for diagnosis of diabetes. In the absence of unequivocal hyperglycemia, results should be confirmed by repeat testing. In a patient with classic symptoms of hyperglycemia or hyperglycemic crisis, random plasma glucose results greater than or equal to 200 mg/dL meet the criteria for diagnosis of diabetes.Reference: Standards of Medical Care in Diabetes 2016, [place] [employer]. Diabetes Care. 2016.39(Suppl 1). Potassium [Moles/Vol] 4.7 mmol/L 3.7-5.1 [facility] Sodium [Moles/Vol] 141 mmol/L 136-144 [facility] Urea nitrogen [Mass/Vol] 19 mg/dL 7-21 [facility] Laboratory - Hematology and Cell countson 08-28-2023 Eosinophils (Bld) [#/Vol] 0.37 10*3/uL <0.46 [facility] Immature granulocytes (Bld) [#/Vol] 0.03 10*3/uL <0.10 [facility] Immature granulocytes/100 WBC (Bld) 0.4 % [facility] Leukocytes [#/volume] correc french for nucleated erythrocytes in Blood by Automated counon 08-28-2023 WBC corrected for nucl RBC Auto (Bld) [#/Vol] 6.76 k/uL 3.70-11.00 [facility] Lymphocytes Auto (Bld) [#/Vo l]on 08-28-2023 Lymphocytes (Bld) [#/Vol] 0.61 10*3/uL 1.00-4.00 [facility] Lymphocytes/100 WBC Auto (Bl d)on 08-28-2023 Lymphocytes/100 WBC (Bld) 9.0 % [facility] MCH Auto (RBC) [Entitic mass ]on 08-28-2023 MCH (RBC) [Entitic mass] 29.3 pg 26.0-34.0 [facility] MCHC Auto (RBC) [Mass/Vol]on 08-28-2023 MCHC (RBC) [Mass/Vol] 31.9 g/dL 30.5-36.0 [facility] MCV Auto (RBC) [Entitic vol] on 08-28-2023 MCV (RBC) [Entitic vol] 91.8 fL 80.0-100.0 [facility] Monocytes Auto (Bld) [#/Vol] on 08-28-2023 Monocytes (Bld) [#/Vol] 0.44 10*3/uL <0.87 [facility] Monocytes/100 WBC Auto (Bld) on 08-28-2023 Monocytes/100 WBC (Bld) 6.5 % [facility] NURSING PROGon 08-28-2023 [facility] Normal [facility] Neutrophils Auto (Bld) [#/Vo l]on 08-28-2023 Neutrophils (Bld) [#/Vol] 5.30 10*3/uL 1.45-7.50 [facility] Neutrophils/100 WBC Auto (Bl d)on 08-28-2023 Neutrophils/100 WBC (Bld) 78.5 % [facility] No Panel Informationon 08-28 Estimated GFR (CKD-EPI) 82 mL/min/1.73m??? >=60 [facility] Comment on above: Estimated Glomerular Filtration Rate (eGFR) is calculated using the 2020 CKD-EPI creatinine equation. This equation utilizes serum creatinine, sex, and age as parameters. The creatinine assay has traceable calibration to isotope dilution-mass spectrometry. Refer to KDIGO guidelines for clinical interpretation. In patients with unstable renal function, e.g. those with acute kidney injury, the eGFR may not accurately reflect actual GFR. Nucleated RBC Auto (Bld) [#/ Vol]on 08-28-2023 Nucleated RBC (Bld) [#/Vol] 10*3/uL <0.01 [facility] Nucleated erythrocytes [Pres ence] in Blood by Automated counton 08-28-2023 Nucleated RBC Auto Ql (Bld) 0.0 /100{WBC} [facility] PT EDon 08-28-2023 PT ED Normal [facility] Platelet mean volume Auto (B ld) [Entitic vol]on 08-28-2023 Platelet mean volume (Bld) [Entitic vol] 8.9 fL 9.0-12.7 [facility] Platelets Auto (Bld) [#/Vol] on 08-28-2023 Platelets (Bld) [#/Vol] 236 10*3/uL 150-400 [facility] RBC Auto (Bld) [#/Vol]on RBC (Bld) [#/Vol] 3.76 10*6/uL 3.90-5.20 [facility] Serum or plasma anion gap de terminationon 08-28-2023 Anion gap [Moles/Vol] 11 mmol/L 9-18 [facility] THERAPY NTon 08-28-2023 THERAPY NT Normal [facility] Basic metabolic 2000 panelon 08-27-2023 Anion gap [Moles/Vol] 9 mmol/L Normal -18 [facility] Comment on above: Order Comment: Speci men Type: BLOOD SPECIMENOrdering Facility: [facility] Address: [address] [place] [address] Performed By: #### 2 4321-2 ####[facility] LABORATORYCLIA [id number] [place] [address] [place] Calcium [Mass/Vol] 9.0 mg/dL Normal 8.5-10.2 [facility] Comment on above: Order Comment: Speci men Type: BLOOD SPECIMENOrdering Facility: [facility] Address: [address] [place] [id number] Performed By: #### 2 4321-2 ####[facility] LABORATORYCLIA [id number] [place] [id number] [place] Chloride [Moles/Vol] 103 mmol/L Normal 97-105 [facility] Comment on above: Order Comment: Speci men Type: BLOOD SPECIMENOrdering Facility: [facility] Address: [address] [place] [address] Performed By: #### 2 4321-2 ####[facility] LABORATORYCLIA [id number] [place] [id number] [place] CO2 [Moles/Vol] 27 mmol/L Normal 22-30 [facility] Comment on above: Order Comment: Speci men Type: BLOOD SPECIMENOrdering Facility: [facility] Address: [address] [place] [address] Performed By: #### 2 4321-2 ####[facility] LABORATORYCLIA [id number] [place] [id number] [place] Creatinine [Mass/Vol] 0.69 mg/dL Normal 0.58-0.96 [facility] Comment on above: Order Comment: Speci men Type: BLOOD SPECIMENOrdering Facility: [facility] Address: [address] [place] [address] Performed By: #### 2 4321-2 ####[facility] LABORATORYCLIA [id number] [place] [id number] [facility] Creatinine and Glomerular filtration rate.predicted panel (S/P/Bld) 93 mL/min/1.73m??? Normal >=60 [facility] Comment on above: Order Comment: Speci men Type: BLOOD SPECIMENOrdering Facility: [facility] Address: [address] [place] [address] Result Comment: Farhana mated Glomerular Filtration Rate (eGFR) is calculated using the 2020 CKD-EPI creatinine equation. This equation utilizes serum creatinine, sex, and age as parameters. The creatinine assay has traceable calibration to isotope dilution-mass spectrometry. Refer to KDIGO guidelines for clinical interpretation. In patients with unstable renal function, e.g. those with acute kidney injury, the eGFR may not accurately reflect actual GFR. Performed By: #### 2 4321-2 ####[facility] LABORATORYCLIA [id number] [place] [id number] [place] Glucose [Mass/Vol] 103 mg/dL High 74-99 [facility] Comment on above: Order Comment: Mason tatiana Type: BLOOD SPECIMENOrdering Facility: [facility] Address: [address] [place] [address] Result Comment: The [place] Diabetes Association (ADA) provides guidance for cutoff values for fasting glucose and random glucose. The ADA defines fasting as no caloric intake for at least 8 hours. Fasting plasma glucose results between 100 to 125 mg/dL indicate increased risk for diabetes (prediabetes).Fasting plasma glucose results greater than or equal to 126 mg/dL meet the criteria for diagnosis of diabetes. In the absence of unequivocal hyperglycemia, results should be confirmed by repeat testing. In a patient with classic symptoms of hyperglycemia or hyperglycemic crisis, random plasma glucose results greater than or equal to 200 mg/dL meet the criteria for diagnosis of diabetes.Reference: Standards of Medical Care in Diabetes 2016, [place] [employer]. Diabetes Care. 2016.39(Suppl 1). Performed By: #### 2 4321-2 ####[facility] LABORATORYCLIA [id number] [place] [id number] [place] Potassium [Moles/Vol] 4.2 mmol/L Normal 3.7-5.1 [facility] Comment on above: Order Comment: Mason simpson Type: BLOOD SPECIMENOrdering Facility: [facility] Address: [address] [place] [address] Performed By: #### 2 4321-2 ####[facility] LABORATORYCLIA [id number] [place] [id number] [place] Sodium [Moles/Vol] 139 mmol/L Normal 136-144 [facility] Comment on above: Order Comment: Mason men Type: BLOOD SPECIMENOrdering Facility: [facility] Address: [address] [place] [address] Performed By: #### 2 4321-2 ####[facility] LABORATORYCLIA [id number] [place] [id number] [place] Urea nitrogen [Mass/Vol] 12 mg/dL Normal 7-21 [facility] Comment on above: Order Comment: Speci men Type: BLOOD SPECIMENOrdering Facility: [facility] Address: [address] [place] [address] Performed By: #### 2 4321-2 ####[facility] LABORATORYCLIA [id number] [place] [address] [place] Basophils Auto (Bld) [#/Vol] on 08-27-2023 Basophils (Bld) [#/Vol] 10*3/uL <0.11 [facility] Basophils/100 WBC Auto (Bld) on 08-27-2023 Basophils/100 WBC (Bld) 0.1 % [facility] Blood manual differential co mment interpretation narrativeon 08-27-2023 Manual differential comment Ankush (Bld) [Interp] Auto [facility] CBC W Auto Differential pane l (Bld)on 08-27-2023 Basophils (Bld) [#/Vol] 10*3/uL Normal <0.11 [facility] Comment on above: Order Comment: Speci men Type: BLOOD SPECIMENOrdering Facility: [facility] Address: [address] [place] [address] Performed By: #### 5 7021-8 ####[facility] LABORATORYCLIA [id number] [place] [address] [place] Basophils/100 WBC (Bld) 0.1 % Normal [facility] Comment on above: Order Comment: Speci men Type: BLOOD SPECIMENOrdering Facility: [facility] Address: [address] [place] [address] Performed By: #### 5 7021-8 ####[facility] LABORATORYCLIA [id number] [place] [address] [place] Differential cell count method Nom (Bld) Auto Normal [facility] Comment on above: Order Comment: Speci men Type: BLOOD SPECIMENOrdering Facility: [facility] Address: [address] [place] [address] Performed By: #### 5 7021-8 ####[facility] LABORATORYCLIA [id number] [place] [id number] [place] Eosinophils (Bld) [#/Vol] 0.33 10*3/uL Normal <0.46 [facility] Comment on above: Order Comment: Speci men Type: BLOOD SPECIMENOrdering Facility: [facility] Address: [address] [place] [address] Performed By: #### 5 7021-8 ####[facility] LABORATORYCLIA [id number] [address] Eosinophils/100 WBC (Bld) 4.1 % Normal [facility] Comment on above: Order Comment: Speci men Type: BLOOD SPECIMENOrdering Facility: [facility] Address: [address] [place] [address] Performed By: #### 5 7021-8 ####[facility] LABORATORYCLIA [id number] [address] [place] Erythrocyte distribution width (RBC) [Ratio] 15.1 % High 11.5-15.0 [facility] Comment on above: Order Comment: Speci men Type: BLOOD SPECIMENOrdering Facility: [facility] Address: [address] [place] [address] Performed By: #### 5 7021-8 ####[facility] LABORATORYCLIA [id number] [address] Hematocrit (Bld) [Volume fraction] 36.2 % Normal 36.0-46.0 [facility] Comment on above: Order Comment: Speci men Type: BLOOD SPECIMENOrdering Facility: [facility] Address: [address] [place] [address] Performed By: #### 5 7021-8 ####[facility] LABORATORYCLIA [id number] [place] [id number] [place] Hemoglobin (Bld) [Mass/Vol] 12.0 g/dL Normal 11.5-15.5 [facility] Comment on above: Order Comment: Speci men Type: BLOOD SPECIMENOrdering Facility: [facility] Address: [address] [place] [address] Performed By: #### 5 7021-8 ####[facility] LABORATORYCLIA [id number] [place] [id number] [place] Immature granulocytes (Bld) [#/Vol] 0.04 10*3/uL Normal <0.10 [facility] Comment on above: Order Comment: Speci men Type: BLOOD SPECIMENOrdering Facility: [facility] Address: [address] [place] [address] Performed By: #### 5 7021-8 ####[facility] LABORATORYCLIA [id number] [address] Immature granulocytes/100 WBC (Bld) 0.5 % Normal [facility] Comment on above: Order Comment: Speci men Type: BLOOD SPECIMENOrdering Facility: [facility] Address: [address] [place] [address] Performed By: #### 5 7021-8 ####[facility] LABORATORYCLIA [id number] [place] [address] [place] Lymphocytes (Bld) [#/Vol] 1.04 10*3/uL Normal 1.00-4.00 [facility] Comment on above: Order Comment: Speci men Type: BLOOD SPECIMENOrdering Facility: [facility] Address: [address] [place] [address] Performed By: #### 5 7021-8 ####[facility] LABORATORYCLIA [id number] [address] Lymphocytes/100 WBC (Bld) 13.0 % Normal [facility] Comment on above: Order Comment: Speci men Type: BLOOD SPECIMENOrdering Facility: [facility] Address: [address] [place] [address] Performed By: #### 5 7021-8 ####[facility] LABORATORYCLIA [id number] [place] [id number] [place] MCH (RBC) [Entitic mass] 29.9 pg Normal 26.0-34.0 [facility] Comment on above: Order Comment: Speci men Type: BLOOD SPECIMENOrdering Facility: [facility] Address: [address] [place] [address] Performed By: #### 5 7021-8 ####[facility] LABORATORYCLIA [id number] [place] [id number] [place] MCHC (RBC) [Mass/Vol] 33.1 g/dL Normal 30.5-36.0 [facility] Comment on above: Order Comment: Speci men Type: BLOOD SPECIMENOrdering Facility: [facility] Address: [address] [place] [address] Performed By: #### 5 7021-8 ####[facility] [facility] LABORATORYCLIA [id number] [place] [address] [place] MCV (RBC) [Entitic vol] 90.0 fL Normal 80.0-100.0 [facility] Comment on above: Order Comment: Speci men Type: BLOOD SPECIMENOrdering Facility: [facility] Address: [address] [place] [address] Performed By: #### 5 7021-8 ####[facility] [facility] LABORATORYCLIA [id number] [place] [address] [place] Monocytes (Bld) [#/Vol] 0.59 10*3/uL Normal <0.87 [facility] Comment on above: Order Comment: Speci men Type: BLOOD SPECIMENOrdering Facility: [facility] Address: [address] [place] [address] Performed By: #### 5 7021-8 ####[facility] [facility] LABORATORYCLIA [id number] [address] [place] Monocytes/100 WBC (Bld) 7.4 % Normal [facility] Comment on above: Order Comment: Speci men Type: BLOOD SPECIMENOrdering Facility: [facility] Address: [address] [place] [address] Performed By: #### 5 7021-8 ####[facility] [facility] LABORATORYCLIA [id number] [place] [address] [place] Neutrophils (Bld) [#/Vol] 6.00 10*3/uL Normal 1.45-7.50 [facility] Comment on above: Order Comment: Speci men Type: BLOOD SPECIMENOrdering Facility: [facility] Address: [address] [place] [address] Performed By: #### 5 7021-8 ####[facility] [facility] LABORATORYCLIA [id number] [place] [id number] [place] Neutrophils/100 WBC (Bld) 74.9 % Normal [facility] Comment on above: Order Comment: Speci men Type: BLOOD SPECIMENOrdering Facility: [facility] Address: [address] [place] [address] Performed By: #### 5 7021-8 ####[facility] [facility] LABORATORYCLIA [id number] [place] [id number] [place] Nucleated RBC (Bld) [#/Vol] 10*3/uL Normal <0.01 [facility] Comment on above: Order Comment: Speci men Type: BLOOD SPECIMENOrdering Facility: [facility] Address: [address] [place] [address] Performed By: #### 5 7021-8 ####[facility] LABORATORYCLIA [id number] [place] [id number] [place] Nucleated RBC/100 WBC (Bld) [Ratio] 0.0 /100 WBC Normal [facility] Comment on above: Order Comment: Speci men Type: BLOOD SPECIMENOrdering Facility: [facility] Address: [address] [place] [address] Performed By: #### 5 7021-8 ####[facility] LABORATORYCLIA [id number] [place] [id number] [place] Platelet mean volume (Bld) [Entitic vol] 8.7 fL Low 9.0-12.7 [facility] Comment on above: Order Comment: Speci men Type: BLOOD SPECIMENOrdering Facility: [facility] Address: [address] [place] [address] Performed By: #### 5 7021-8 ####[facility] [facility] LABORATORYCLIA [id number] [place] [id number] [place] Platelets (Bld) [#/Vol] 265 10*3/uL Normal 150-400 [facility] Comment on above: Order Comment: Speci men Type: BLOOD SPECIMENOrdering Facility: [facility] Address: [address] [place] [address] Performed By: #### 5 7021-8 ####[facility] LABORATORYCLIA [id number] [place] [address] [place] RBC (Bld) [#/Vol] 4.02 10*6/uL Normal 3.90-5.20 [facility] Comment on above: Order Comment: Speci men Type: BLOOD SPECIMENOrdering Facility: [facility] Address: [address] [place] [address] Performed By: #### 5 7021-8 ####[facility] LABORATORYCLIA [id number] [place] [address] [place] WBC (Bld) [#/Vol] 8.01 10*3/uL Normal 3.70-11.00 [facility] Comment on above: Order Comment: Speci men Type: BLOOD SPECIMENOrdering Facility: [facility] Address: [address] [place] [address] Performed By: #### 5 7021-8 ####[facility] LABORATORYCLIA [id number] [place] [address] [place] Eosinophils/100 WBC Auto (Bl d)on 08-27-2023 Eosinophils/100 WBC (Bld) 4.1 % [facility] Erythrocyte distribution wid th Auto (RBC) [Ratio]on 08-27-2023 Erythrocyte distribution width (RBC) [Ratio] 15.1 % 11.5-15.0 [facility] Hematocrit Auto (Bld) [Volum e fraction]on 08-27-2023 Hematocrit (Bld) [Volume fraction] 36.2 % 36.0-46.0 [facility] Hemoglobin [Mass/volume] in Bloodon 08-27-2023 Hemoglobin (Bld) [Mass/Vol] 12.0 g/dL 11.5-15.5 [facility] Laboratory - Chemistry and C hemistry - challengeon 08-27-2023 Calcium [Mass/Vol] 9.0 mg/dL 8.5-10.2 [facility] Chloride [Moles/Vol] 103 mmol/L 97-105 [facility] CO2 [Moles/Vol] 27 mmol/L 22-30 [facility] Creatinine [Mass/Vol] 0.69 mg/dL 0.58-0.96 [facility] Glucose [Mass/Vol] 103 mg/dL 74-99 [facility] Comment on above: The [place] Di[employer] Association (ADA) provides guidance for cutoff values for fasting glucose and random glucose. The ADA defines fasting as no caloric intake for at least 8 hours. Fasting plasma glucose results between 100 to 125 mg/dL indicate increased risk for diabetes (prediabetes).Fasting plasma glucose results greater than or equal to 126 mg/dL meet the criteria for diagnosis of diabetes. In the absence of unequivocal hyperglycemia, results should be confirmed by repeat testing. In a patient with classic symptoms of hyperglycemia or hyperglycemic crisis, random plasma glucose results greater than or equal to 200 mg/dL meet the criteria for diagnosis of diabetes.Reference: Standards of Medical Care in Diabetes 2016, [place] [employer]. Diabetes Care. 2016.39(Suppl 1). Potassium [Moles/Vol] 4.2 mmol/L 3.7-5.1 [facility] Sodium [Moles/Vol] 139 mmol/L 136-144 [facility] Urea nitrogen [Mass/Vol] 12 mg/dL 7-21 [facility] Laboratory - Hematology and Cell countson 08-27-2023 Eosinophils (Bld) [#/Vol] 0.33 10*3/uL <0.46 [facility] Immature granulocytes (Bld) [#/Vol] 0.04 10*3/uL <0.10 [facility] Immature granulocytes/100 WBC (Bld) 0.5 % [facility] Leukocytes [#/volume] correc french for nucleated erythrocytes in Blood by Automated counon 08-27-2023 WBC corrected for nucl RBC Auto (Bld) [#/Vol] 8.01 k/uL 3.70-11.00 [facility] Lymphocytes Auto (Bld) [#/Vo l]on 08-27-2023 Lymphocytes (Bld) [#/Vol] 1.04 10*3/uL 1.00-4.00 [facility] Lymphocytes/100 WBC Auto (Bl d)on 08-27-2023 Lymphocytes/100 WBC (Bld) 13.0 % [facility] MCH Auto (RBC) [Entitic mass ]on 08-27-2023 MCH (RBC) [Entitic mass] 29.9 pg 26.0-34.0 [facility] MCHC Auto (RBC) [Mass/Vol]on 08-27-2023 MCHC (RBC) [Mass/Vol] 33.1 g/dL 30.5-36.0 [facility] MCV Auto (RBC) [Entitic vol] on 08-27-2023 MCV (RBC) [Entitic vol] 90.0 fL 80.0-100.0 [facility] Monocytes Auto (Bld) [#/Vol] on 08-27-2023 Monocytes (Bld) [#/Vol] 0.59 10*3/uL <0.87 [facility] Monocytes/100 WBC Auto (Bld) on 08-27-2023 Monocytes/100 WBC (Bld) 7.4 % [facility] NURSING PROGon 08-27-2023 NURSING PROG [facility] Neutrophils Auto (Bld) [#/Vo l]on 08-27-2023 Neutrophils (Bld) [#/Vol] 6.00 10*3/uL 1.45-7.50 [facility] Neutrophils/100 WBC Auto (Bl d)on 08-27-2023 Neutrophils/100 WBC (Bld) 74.9 % [facility] No Panel Informationon 08-27 Estimated GFR (CKD-EPI) 93 mL/min/1.73m??? >=60 [facility] Comment on above: Estimated Glomerular Filtration Rate (eGFR) is calculated using the 2020 CKD-EPI creatinine equation. This equation utilizes serum creatinine, sex, and age as parameters. The creatinine assay has traceable calibration to isotope dilution-mass spectrometry. Refer to KDIGO guidelines for clinical interpretation. In patients with unstable renal function, e.g. those with acute kidney injury, the eGFR may not accurately reflect actual GFR. Nucleated RBC Auto (Bld) [#/ Vol]on 08-27-2023 Nucleated RBC (Bld) [#/Vol] 10*3/uL <0.01 [facility] Nucleated erythrocytes [Pres ence] in Blood by Automated counton 08-27-2023 Nucleated RBC Auto Ql (Bld) 0.0 /100{WBC} [facility] Platelet mean volume Auto (B ld) [Entitic vol]on 08-27-2023 Platelet mean volume (Bld) [Entitic vol] 8.7 fL 9.0-12.7 [facility] Platelets Auto (Bld) [#/Vol] on 08-27-2023 Platelets (Bld) [#/Vol] 265 10*3/uL 150-400 [facility] RBC Auto (Bld) [#/Vol]on RBC (Bld) [#/Vol] 4.02 10*6/uL 3.90-5.20 [facility] Serum or plasma anion gap de terminationon 08-27-2023 Anion gap [Moles/Vol] 9 mmol/L 03-27 [facility] Basic metabolic 2000 panelon 08-26-2023 Anion gap [Moles/Vol] 10 mmol/L Normal 03-27 [facility] Comment on above: Order Comment: Speci men Type: BLOOD SPECIMENOrdering Facility: [facility] Address: [address] [place] [address] Performed By: #### 2 4321-2 ####[facility] LABORATORYCLIA [id number] [place] [address] [place] Calcium [Mass/Vol] 8.7 mg/dL Normal 8.5-10.2 [facility] Comment on above: Order Comment: Speci men Type: BLOOD SPECIMENOrdering Facility: [facility] Address: [address] [place] [address] Performed By: #### 2 4321-2 ####[facility] LABORATORYCLIA [id number] [place] [address] [place] Chloride [Moles/Vol] 107 mmol/L High 97-105 [facility] Comment on above: Order Comment: Speci men Type: BLOOD SPECIMENOrdering Facility: [facility] Address: [address] [place] [address] Performed By: #### 2 4321-2 ####[facility]ORATORYCLIA [id number] [place] [id number] [place] CO2 [Moles/Vol] 25 mmol/L Normal 22-30 [facility] Comment on above: Order Comment: Speci men Type: BLOOD SPECIMENOrdering Facility: [facility] Address: [address] [place] [address] Performed By: #### 2 4321-2 ####[facility] LABORATORYCLIA [id number] [place] [id number] [place] Creatinine [Mass/Vol] 0.69 mg/dL Normal 0.58-0.96 [facility] Comment on above: Order Comment: Speci men Type: BLOOD SPECIMENOrdering Facility: [facility] Address: [address] [place] [address] Performed By: #### 2 4321-2 ####[facility] LABORATORYCLIA [id number] [place] [id number] [place] Creatinine and Glomerular filtration rate.predicted panel (S/P/Bld) 93 mL/min/1.73m??? Normal >=60 [facility] Comment on above: Order Comment: Moyi men Type: BLOOD SPECIMENOrdering Facility: [facility] Address: [address] [place] [address] Result Comment: Farhana mated Glomerular Filtration Rate (eGFR) is calculated using the 2020 CKD-EPI creatinine equation. This equation utilizes serum creatinine, sex, and age as parameters. The creatinine assay has traceable calibration to isotope dilution-mass spectrometry. Refer to KDIGO guidelines for clinical interpretation. In patients with unstable renal function, e.g. those with acute kidney injury, the eGFR may not accurately reflect actual GFR. Performed By: #### 2 4321-2 ####[facility] LABORATORYCLIA [id number] [place] [id number] [place] Glucose [Mass/Vol] 84 mg/dL Normal 74-99 [facility] Comment on above: Order Comment: Speci men Type: BLOOD SPECIMENOrdering Facility: [facility] Address: [address] [place] [id number] Result Comment: The [place] Diabetes Association (ADA) provides guidance for cutoff values for fasting glucose and random glucose. The ADA defines fasting as no caloric intake for at least 8 hours. Fasting plasma glucose results between 100 to 125 mg/dL indicate increased risk for diabetes (prediabetes).Fasting plasma glucose results greater than or equal to 126 mg/dL meet the criteria for diagnosis of diabetes. In the absence of unequivocal hyperglycemia, results should be confirmed by repeat testing. In a patient with classic symptoms of hyperglycemia or hyperglycemic crisis, random plasma glucose results greater than or equal to 200 mg/dL meet the criteria for diagnosis of diabetes.Reference: Standards of Medical Care in Diabetes 2016, [place] [employer]. Diabetes Care. 2016.39(Suppl 1). Performed By: #### 2 4321-2 ####[facility] LABORATORYCLIA [id number] [place] [address] [place] Potassium [Moles/Vol] 3.5 mmol/L Low 3.7-5.1 [facility] Comment on above: Order Comment: Speci men Type: BLOOD SPECIMENOrdering Facility: [facility] Address: [address] [place] [address] Performed By: #### 2 4321-2 ####[facility] LABORATORYCLIA [id number] [place] [id number] [place] Sodium [Moles/Vol] 142 mmol/L Normal 136-144 [facility] Comment on above: Order Comment: Speci men Type: BLOOD SPECIMENOrdering Facility: [facility] Address: [address] [place] [address] Performed By: #### 2 4321-2 ####[facility] LABORATORYCLIA [id number] [place] [id number] [place] Urea nitrogen [Mass/Vol] 11 mg/dL Normal 7-21 [facility] Comment on above: Order Comment: Speci men Type: BLOOD SPECIMENOrdering Facility: [facility] Address: [address] [id number] Performed By: #### 2 4321-2 ####[facility] LABORATORYCLIA [id number] [place] [address] [place] Basophils Auto (Bld) [#/Vol] on 08-26-2023 Basophils (Bld) [#/Vol] 0.04 10*3/uL <0.11 [facility] Basophils/100 WBC Auto (Bld) on 08-26-2023 Basophils/100 WBC (Bld) 0.5 % [facility] Blood manual differential co mment interpretation narrativeon 08-26-2023 Manual differential comment Ankush (Bld) [Interp] Auto [facility] CASE MGT INIT ASSESon 2023 CASE MGT INIT ASSES Normal [facility] CBC W Auto Differential pane l (Bld)on 08-26-2023 Basophils (Bld) [#/Vol] 0.04 10*3/uL Normal <0.11 [facility] Comment on above: Order Comment: Speci men Type: BLOOD SPECIMENOrdering Facility: [facility] Address: [address] [place] [address] Performed By: #### 5 7021-8 ####[facility] LABORATORYCLIA [id number] [place] [address] [place] Basophils/100 WBC (Bld) 0.5 % Normal [facility] Comment on above: Order Comment: Speci men Type: BLOOD SPECIMENOrdering Facility: [facility] Address: [address] [place] [address] Performed By: #### 5 7021-8 ####[facility] LABORATORYCLIA [id number] [place] [address] [place] Differential cell count method Nom (Bld) Auto Normal [facility] Comment on above: Order Comment: Speci men Type: BLOOD SPECIMENOrdering Facility: [facility] Address: [address] [place] [address] Performed By: #### 5 7021-8 ####[facility] [facility] LABORATORYCLIA [id number] [place] [address] [place] Eosinophils (Bld) [#/Vol] 0.29 10*3/uL Normal <0.46 [facility] Comment on above: Order Comment: Speci men Type: BLOOD SPECIMENOrdering Facility: [facility] Address: [address] [place] [address] Performed By: #### 5 7021-8 ####[facility] LABORATORYCLIA [id number] [address] [place] Eosinophils/100 WBC (Bld) 3.6 % Normal [facility] Comment on above: Order Comment: Speci men Type: BLOOD SPECIMENOrdering Facility: [facility] Address: [address] [place] [address] Performed By: #### 5 7021-8 ####[facility] LABORATORYCLIA [id number] [address] [place] Erythrocyte distribution width (RBC) [Ratio] 15.0 % Normal 11.5-15.0 [facility] Comment on above: Order Comment: Speci men Type: BLOOD SPECIMENOrdering Facility: [facility] Address: [address] [place] [address] Performed By: #### 5 7021-8 ####[facility] LABORATORYCLIA [id number] [address] [place] Hematocrit (Bld) [Volume fraction] 30.9 % Low 36.0-46.0 [facility] Comment on above: Order Comment: Speci men Type: BLOOD SPECIMENOrdering Facility: [facility] Address: [address] [place] [address] Performed By: #### 5 7021-8 ####[facility] LABORATORYCLIA [id number] [place] [address] [place] Hemoglobin (Bld) [Mass/Vol] 10.2 g/dL Low 11.5-15.5 [facility] Comment on above: Order Comment: Speci men Type: BLOOD SPECIMENOrdering Facility: [facility] Address: [address] [place] [address] Performed By: #### 5 7021-8 ####[facility] LABORATORYCLIA [id number] [address] [place] Immature granulocytes (Bld) [#/Vol] 0.10 10*3/uL High <0.10 [facility] Comment on above: Order Comment: Speci men Type: BLOOD SPECIMENOrdering Facility: [facility] Address: [address] [place] [address] Performed By: #### 5 7021-8 ####[facility] [facility] LABORATORYCLIA [id number] [address] [place] Immature granulocytes/100 WBC (Bld) 1.2 % Normal [facility] Comment on above: Order Comment: Speci men Type: BLOOD SPECIMENOrdering Facility: [facility] Address: [address] [place] [address] Performed By: #### 5 7021-8 ####[facility] [facility] LABORATORYCLIA [id number] [place] [address] [place] Lymphocytes (Bld) [#/Vol] 0.97 10*3/uL Low 1.00-4.00 [facility] Comment on above: Order Comment: Speci men Type: BLOOD SPECIMENOrdering Facility: [facility] Address: [address] [place] [address] Performed By: #### 5 7021-8 ####[facility] [facility] LABORATORYCLIA [id number] [address] [place] Lymphocytes/100 WBC (Bld) 12.0 % Normal [facility] Comment on above: Order Comment: Speci men Type: BLOOD SPECIMENOrdering Facility: [facility] Address: [address] [place] [address] Performed By: #### 5 7021-8 ####[facility] [facility] LABORATORYCLIA [id number] [place] [address] [place] MCH (RBC) [Entitic mass] 29.6 pg Normal 26.0-34.0 [facility] Comment on above: Order Comment: Speci men Type: BLOOD SPECIMENOrdering Facility: [facility] Address: [address] [place] [address] Performed By: #### 5 7021-8 ####[facility] [facility] LABORATORYCLIA [id number] [place] [address] [place] MCHC (RBC) [Mass/Vol] 33.0 g/dL Normal 30.5-36.0 [facility] Comment on above: Order Comment: Speci men Type: BLOOD SPECIMENOrdering Facility: [facility] Address: [address] [place] [address] Performed By: #### 5 7021-8 ####[facility] LABORATORYCLIA [id number] [place] [id number] [place] MCV (RBC) [Entitic vol] 89.6 fL Normal 80.0-100.0 [facility] Comment on above: Order Comment: Speci men Type: BLOOD SPECIMENOrdering Facility: [facility] Address: [address] [place] [address] Performed By: #### 5 7021-8 ####[facility] LABORATORYCLIA [id number] [place] [address] [place] Monocytes (Bld) [#/Vol] 0.81 10*3/uL Normal <0.87 [facility] Comment on above: Order Comment: Speci men Type: BLOOD SPECIMENOrdering Facility: [facility] Address: [address] [place] [address] Performed By: #### 5 7021-8 ####[facility] LABORATORYCLIA [id number] [place] [address] [place] Monocytes/100 WBC (Bld) 10.0 % Normal [facility] Comment on above: Order Comment: Speci men Type: BLOOD SPECIMENOrdering Facility: [facility] Address: [address] [place] [address] Performed By: #### 5 7021-8 ####[facility] LABORATORYCLIA [id number] [place] [id number] [place] Neutrophils (Bld) [#/Vol] 5.88 10*3/uL Normal 1.45-7.50 [facility] Comment on above: Order Comment: Speci men Type: BLOOD SPECIMENOrdering Facility: [facility] Address: [address] [place] [address] Performed By: #### 5 7021-8 ####[facility] LABORATORYCLIA [id number] [place] [address] [place] Neutrophils/100 WBC (Bld) 72.7 % Normal [facility] Comment on above: Order Comment: Speci men Type: BLOOD SPECIMENOrdering Facility: [facility] Address: [address] [place] [address] Performed By: #### 5 7021-8 ####[facility] LABORATORYCLIA [id number] [place] [id number] [place] Nucleated RBC (Bld) [#/Vol] 10*3/uL Normal <0.01 [facility] Comment on above: Order Comment: Speci men Type: BLOOD SPECIMENOrdering Facility: [facility] Address: [address] [place] [address] Performed By: #### 5 7021-8 ####[facility] LABORATORYCLIA [id number] [place] [address] [place] Nucleated RBC/100 WBC (Bld) [Ratio] 0.0 /100 WBC Normal [facility] Comment on above: Order Comment: Speci men Type: BLOOD SPECIMENOrdering Facility: [facility] Address: [address] [place] [address] Performed By: #### 5 7021-8 ####[facility] LABORATORYCLIA [id number] [place] [address] [place] Platelet mean volume (Bld) [Entitic vol] 8.9 fL Low 9.0-12.7 [facility] Comment on above: Order Comment: Speci men Type: BLOOD SPECIMENOrdering Facility: [facility] Address: [address] [place] [address] Performed By: #### 5 7021-8 ####[facility] LABORATORYCLIA [id number] [place] [id number] [place] Platelets (Bld) [#/Vol] 230 10*3/uL Normal 150-400 [facility] Comment on above: Order Comment: Speci men Type: BLOOD SPECIMENOrdering Facility: [facility] Address: [address] [place] [address] Performed By: #### 5 7021-8 ####[facility]ORATORYCLIA [id number] [place] [address] [place] RBC (Bld) [#/Vol] 3.45 10*6/uL Low 3.90-5.20 [facility] Comment on above: Order Comment: Speci men Type: BLOOD SPECIMENOrdering Facility: [facility] Address: [address] [place] [address] Performed By: #### 5 7021-8 ####[facility]ORATORYCLIA [id number] [place] [id number] [place] WBC (Bld) [#/Vol] 8.09 10*3/uL Normal 3.70-11.00 [facility] Comment on above: Order Comment: Speci men Type: BLOOD SPECIMENOrdering Facility: [facility] Address: [address] [place] [address] Performed By: #### 5 7021-8 ####[facility]ORATORYCLIA [id number] [address] [place] CONSULTon 08-26-2023 CONSULT Normal [facility] Eosinophils/100 WBC Auto (Bl d)on 08-26-2023 Eosinophils/100 WBC (Bld) 3.6 % [facility] Erythrocyte distribution wid th Auto (RBC) [Ratio]on 08-26-2023 Erythrocyte distribution width (RBC) [Ratio] 15.0 % 11.5-15.0 [facility] Hematocrit Auto (Bld) [Volum e fraction]on 08-26-2023 Hematocrit (Bld) [Volume fraction] 30.9 % 36.0-46.0 [facility] Hemoglobin [Mass/volume] in Bloodon 08-26-2023 Hemoglobin (Bld) [Mass/Vol] 10.2 g/dL 11.5-15.5 [facility] Laboratory - Chemistry and C hemistry - challengeon 08-26-2023 Calcium [Mass/Vol] 8.7 mg/dL 8.5-10.2 [facility] Chloride [Moles/Vol] 107 mmol/L 97-105 [facility] CO2 [Moles/Vol] 25 mmol/L 22-30 [facility] Creatinine [Mass/Vol] 0.69 mg/dL 0.58-0.96 [facility] Glucose [Mass/Vol] 84 mg/dL 74-99 [facility] Comment on above: The [place] Diab[employer] Association (ADA) provides guidance for cutoff values for fasting glucose and random glucose. The ADA defines fasting as no caloric intake for at least 8 hours. Fasting plasma glucose results between 100 to 125 mg/dL indicate increased risk for diabetes (prediabetes).Fasting plasma glucose results greater than or equal to 126 mg/dL meet the criteria for diagnosis of diabetes. In the absence of unequivocal hyperglycemia, results should be confirmed by repeat testing. In a patient with classic symptoms of hyperglycemia or hyperglycemic crisis, random plasma glucose results greater than or equal to 200 mg/dL meet the criteria for diagnosis of diabetes.Reference: Standards of Medical Care in Diabetes 2016, [place] [employer]. Diabetes Care. 2016.39(Suppl 1). Potassium [Moles/Vol] 3.5 mmol/L 3.7-5.1 [facility] Sodium [Moles/Vol] 142 mmol/L 136-144 [facility] Urea nitrogen [Mass/Vol] 11 mg/dL 7-21 [facility] Laboratory - Hematology and Cell countson 08-26-2023 Eosinophils (Bld) [#/Vol] 0.29 10*3/uL <0.46 [facility] Immature granulocytes (Bld) [#/Vol] 0.10 10*3/uL <0.10 [facility] Immature granulocytes/100 WBC (Bld) 1.2 % [facility] Leukocytes [#/volume] correc french for nucleated erythrocytes in Blood by Automated counon 08-26-2023 WBC corrected for nucl RBC Auto (Bld) [#/Vol] 8.09 k/uL 3.70-11.00 [facility] Lymphocytes Auto (Bld) [#/Vo l]on 08-26-2023 Lymphocytes (Bld) [#/Vol] 0.97 10*3/uL 1.00-4.00 [facility] Lymphocytes/100 WBC Auto (Bl d)on 08-26-2023 Lymphocytes/100 WBC (Bld) 12.0 % [facility] MCH Auto (RBC) [Entitic mass ]on 08-26-2023 MCH (RBC) [Entitic mass] 29.6 pg 26.0-34.0 [facility] MCHC Auto (RBC) [Mass/Vol]on 08-26-2023 MCHC (RBC) [Mass/Vol] 33.0 g/dL 30.5-36.0 [facility] MCV Auto (RBC) [Entitic vol] on 08-26-2023 MCV (RBC) [Entitic vol] 89.6 fL 80.0-100.0 [facility] Monocytes Auto (Bld) [#/Vol] on 08-26-2023 Monocytes (Bld) [#/Vol] 0.81 10*3/uL <0.87 [facility] Monocytes/100 WBC Auto (Bld) on 08-26-2023 Monocytes/100 WBC (Bld) 10.0 % [facility] Neutrophils Auto (Bld) [#/Vo l]on 08-26-2023 Neutrophils (Bld) [#/Vol] 5.88 10*3/uL 1.45-7.50 [facility] Neutrophils/100 WBC Auto (Bl d)on 08-26-2023 Neutrophils/100 WBC (Bld) 72.7 % [facility] No Panel Informationon 08-26 Estimated GFR (CKD-EPI) 93 mL/min/1.73m??? >=60 [facility] Comment on above: Estimated Glomerular Filtration Rate (eGFR) is calculated using the 2020 CKD-EPI creatinine equation. This equation utilizes serum creatinine, sex, and age as parameters. The creatinine assay has traceable calibration to isotope dilution-mass spectrometry. Refer to KDIGO guidelines for clinical interpretation. In patients with unstable renal function, e.g. those with acute kidney injury, the eGFR may not accurately reflect actual GFR. Nucleated RBC Auto (Bld) [#/ Vol]on 08-26-2023 Nucleated RBC (Bld) [#/Vol] 10*3/uL <0.01 [facility] Nucleated erythrocytes [Pres ence] in Blood by Automated counton 08-26-2023 Nucleated RBC Auto Ql (Bld) 0.0 /100{WBC} [facility] Platelet mean volume Auto (B ld) [Entitic vol]on 08-26-2023 Platelet mean volume (Bld) [Entitic vol] 8.9 fL 9.0-12.7 [facility] Platelets Auto (Bld) [#/Vol] on 08-26-2023 Platelets (Bld) [#/Vol] 230 10*3/uL 150-400 [facility] RBC Auto (Bld) [#/Vol]on RBC (Bld) [#/Vol] 3.45 10*6/uL 3.90-5.20 [facility] Serum or plasma anion gap de terminationon 08-26-2023 Anion gap [Moles/Vol] 10 mmol/L 9-18 [facility] THERAPY NTon 08-26-2023 THERAPY NT [facility] THERAPY NT [facility] ANES POSTPROC EVALon 024 ANES POSTPROC EVAL Normal [facility] ANES PRE-OPon 08-25-2023 ANES PRE-OP [facility] BRIEF OP NOTon 08-25-2023 BRIEF OP NOT [facility] NURSING PROGon 08-25-2023 NURSING PROG [facility] NURSING PROG [facility] OPERATIVE NOon 08-25-2023 OPERATIVE NO [facility] SURGICAL PATHOLOGYon 024 AMENDED REPORT DETAIL Normal [facility] Comment on above: Order Comment: Speci men Type: TISSUE SPECIMENOrdering Facility: [facility] Address: [address] [place] [address] Result Comment: Amen ded: 09/13/2023 3:21 PMThis report is being amended to reflect a change in the Synoptic Report and Gross Description armijo. The changes are as follows: changed to tumor location in the Synoptic Report from Cannot be determined to Rectum / Entirely below anterior peritoneal reflection and added The ulcer is located entirely below the anterior peritoneal reflection to the Gross Description.Dr. Singer was notified of this change by e-mail on 09/13/2023.JEL 09/13/2023Edited results: Previously reported on 08/31/2023 at 6:21 PM EST. Performed By: #### S ####[facility]ORATORYCLIA [id number] [address] LABCLIA [id number] [address] BLOCK FOR ADDITIONAL BIOMARKERS/MOLECULAR STUDIES No evidence of residual invasive adenocarcinoma Normal [facility] Comment on above: Order Comment: Speci men Type: TISSUE SPECIMENOrdering Facility: [facility] Address: [address] [place] [address] Performed By: #### S ####[facility] LABORATORYCLIA [id number] [address] LABCLIA [id number] [address] CASE REPORT Normal [facility] Comment on above: Order Comment: Speci men Type: TISSUE SPECIMENOrdering Facility: [facility] Address: [address] [place] [address] Result Comment: Surg ica Pathology Report Case: [id number] Provider: Laisha Singer MD Collected: 08/25/2023 11:42 AMOrdering Location: [facility] Received: 08/25/2023 12:13 PM Operating RoomPathologist: Oscar Marshall MDSpecimens: A) - COLON RESECTION, low anterior resection B) - MARGIN GI, distal margin Performed By: #### S ####[facility]ORATORYCLIA [id number] [address] LABCLIA [id number] [address] OF [place] CLINICAL HISTORY Normal [facility] Comment on above: Order Comment: Speci men Type: TISSUE SPECIMENOrdering Facility: [facility] Address: [address] [place] [address] Result Comment: Pre- op diagnosis:Rectal cancer (HCC) [C20] Performed By: #### S ####[facility] LABORATORYCLIA [id number] [address] LABCLIA [id number] [address] FINAL DIAGNOSIS Normal [facility] Comment on above: Order Comment: Speci men Type: TISSUE SPECIMENOrdering Facility: [facility] Address: [address] [place] [address] Result Comment: A. S igmoid colon and rectum, resection:- No evidence of residual invasive adenocarcinoma (see synoptic report).- Fifteen lymph nodes, negative for malignancy (0/15).B. Additional distal margin, excision:- Segment of rectum with no diagnostic abnormality.JEL 4Amendment electronically signed by Oscar Marshall MD on 09/13/2023 at 3:24 PM Performed By: #### S ####[facility]ORATORYCLIA [id number] [address] LABCLIA [id number] [address] OF [facility] FINAL PERFORMING LAB Normal [facility] Comment on above: Order Comment: Speci men Type: TISSUE SPECIMENOrdering Facility: [facility] Address: [address] [place] [address] Result Comment: Diag nostic interpretation performed at [facility], [address] [place] [address] CLIA# [id number] Director: Dheeraj Suarez M.D. Performed By: #### S ####[facility]ORATORYCLIA [id number] [address] LABCLIA [id number] [address] [place] GROSS DESCRIPTION Normal [facility] Comment on above: Order Comment: Speci men Type: TISSUE SPECIMENOrdering Facility: [facility] Address: [address] [place] [address] Result Comment: A. C OLON RESECTIONReceived in formalin designated low anterior resection is a segment of large bowel that measures 15 cm in length and ranges from 2.5 to 4 cm in circumference. The serosal surface is pink-wong and smooth with an attached complete anterior and posterior mesorectum. The bowel is opened to reveal a pink-wong area of ulceration that measures 2.1 x 1.7 x 0.2 cm. The ulcer occupies the posterior, right, and left bowel wall, is located 1.2 cm from the distal margin, 12 cm from the proximal margin, 2.4 cm from the nearest posterior circumferential (radial) margin, and 12.5 cm from the mesenteric margin. The ulcer is located entirely below the anterior peritoneal reflection. Sectioning through the ulcer reveals that it does not extend beyond the muscularis propria. The remaining bowel mucosa is unremarkable showing normal mucosal folds with a wall thickness of 0.9 cm. Developmental Behavioral Physician sections are submitted as follows: A1 ulcer with distal margin perpendicular (inked blue), A2 proximal margin perpendicular (inked orange), A3-A4 ulcer with posterior circumferential (radial) margin, bisected, A5-A6 ulcer with posterior circumferential (radial) margin, bisected, A7-A8 ulcer with posterior circumferential (radial) margin, bisected (A3-A8 submitted in sequential order from distal to proximal), A9 ulcer with left circumferential (radial) margin, A10 ulcer with left circumferential (radial) margin (A9-A10 submitted in sequential order from distal to proximal), A11 ulcer with right circumferential (radial) margin, A12 remainder of ulcer, entirely submitted, with right circumferential (radial) margin (A11-A12 submitted in sequential order from distal to proximal), A13 mesenteric margin perpendicular (inked black), A14 four intact lymph nodes, A15 four intact lymph nodes, A16 four intact lymph nodes, A17 four intact lymph nodes, A18 four intact lymph nodes, A19 five intact lymph nodes, A20-A39 colorectal soft tissue submitted for microscopic lymph node evaluation.WE August 28, 2023 1:59 PMGross examination performed at [facility], [address] [place], [place] [address]N. MARGIN GIReceived in formalin designated distal margin is a segment of bowel that measures 0.5 cm in length and 1.2 cm in diameter. The specimen cannot be inked due to the size of the specimen. The specimen is serially sectioned and entirely submitted in one cassette.WE August 25, 2023 1:52 PMGross examination performed at [facility], [address] [place], [place] [address]Cxrjqvxxb results: Previously reported on 08/31/2023 at 6:21 PM EST. Performed By: #### S ####[facility] LABORATORYCLIA [id number] [place] [address] [place] [facility] LABCLIA [id number] [facility] ERK [id number] [place] [address] [facility] SYNOPTIC REPORT Normal [facility] Comment on above: Order Comment: Speci men Type: TISSUE SPECIMENOrdering Facility: [facility] Address: [address] [place] [address] Result Comment: COLO N AND RECTUM: Resection, Including Transanal Disk Excision of Rectal NeoplasmsCOLON AND RECTUM: RESECTION - All Unuxiollq4jr Edition - Protocol posted: 12/29/2021PECIMEN Procedure: Low anterior resection Macroscopic Evaluation of Mesorectum: CompleteTUMOR Tumor Site: Rectum Rectal Tumor Location: Entirely below anterior peritoneal reflection Histologic Type: No evidence of residual invasive adenocarcinoma Histologic Grade: No evidence of residual invasive adenocarcinoma Tumor Size: Cannot be determined: No evidence of residual invasive adenocarcinoma Tumor Extent: No evidence of primary tumor Macroscopic Tumor Perforation: Not identified Lymphovascular Invasion: Not identified Perineural Invasion: Not identified Treatment Effect: Present, with no viable cancer cells (complete response, score 0)MARGINS Margin Status for Invasive Carcinoma: All margins negative for invasive carcinoma Distance from Invasive Carcinoma to Radial (Circumferential) Margin: No evidence of residual invasive adenocarcinoma Distance from Invasive Carcinoma to Distal Margin: No evidence of residual invasive adenocarcinoma Margin Status for Non-Invasive Tumor: All margins negative for high-grade dysplasia / intramucosal carcinoma and low-grade dysplasiaREGIONAL LYMPH NODES Regional Lymph Node Status: : All regional lymph nodes negative for tumor Number of Lymph Nodes Examined: 15 Tumor Deposits: Not identifiedPATHOLOGIC STAGE CLASSIFICATION (pTNM, AJCC 8th Edition) Reporting of pT, pN, and (when applicable) pM categories is based on information available to the pathologist at the time the report is issued. As per the AJCC (Chapter 1, 8th Ed.) it is the managing physician???s responsibility to establish the final pathologic stage based upon all pertinent information, including but potentially not limited to this pathology report. TNM Descriptors: y (post-treatment) pT Category: pT0 pN Category: pN0 Performed By: #### S ####[facility] LABORATORYCLIA [id number] [address] LABCLIA [id number] [place] [address] [place] CBC W Auto Differential pane l (Bld)on 08-11-2023 Basophils (Bld) [#/Vol] 0.05 10*3/uL Normal <0.11 [facility] Comment on above: Order Comment: Speci men Type: BLOOD SPECIMENOrdering Facility: [facility] Address: [address] [place] [address] Performed By: #### 5 7021-8 ####[facility] LABCLIA [id number] [place] [address] [place] Basophils/100 WBC (Bld) 1.0 % Normal [facility] Comment on above: Order Comment: Speci men Type: BLOOD SPECIMENOrdering Facility: [facility] Address: [address] [place] [address] Performed By: #### 5 7021-8 ####[facility] LABCLIA [id number] [address] [place] Differential cell count method Nom (Bld) Auto Normal [facility] Comment on above: Order Comment: Speci men Type: BLOOD SPECIMENOrdering Facility: [facility] Address: [address] [place] [address] Performed By: #### 5 7021-8 ####[facility] LABIA [id number] [place] [address] [place] Eosinophils (Bld) [#/Vol] 0.34 10*3/uL Normal <0.46 [facility] Comment on above: Order Comment: Speci men Type: BLOOD SPECIMENOrdering Facility: [facility] Address: [address] [place] [address] Performed By: #### 5 7021-8 ####[facility] LABCLIA [id number] [place] [address] [place] Eosinophils/100 WBC (Bld) 6.8 % Normal [facility] Comment on above: Order Comment: Speci men Type: BLOOD SPECIMENOrdering Facility: [facility] Address: [address] [place] [address] Performed By: #### 5 7021-8 ####[facility] LABCLIA [id number] [place] [address] [place] Erythrocyte distribution width (RBC) [Ratio] 15.2 % High 11.5-15.0 [facility] Comment on above: Order Comment: Speci men Type: BLOOD SPECIMENOrdering Facility: [facility] Address: [address] [place] [address] Performed By: #### 5 7021-8 ####[facility] LABCLIA [id number] [place] [address] [place] Hematocrit (Bld) [Volume fraction] 39.9 % Normal 36.0-46.0 [facility] Comment on above: Order Comment: Speci men Type: BLOOD SPECIMENOrdering Facility: [facility] Address: [address] [place] [address] Performed By: #### 5 7021-8 ####[facility] LABCLIA [id number] [place] [address] [place] Hemoglobin (Bld) [Mass/Vol] 12.5 g/dL Normal 11.5-15.5 [facility] Comment on above: Order Comment: Speci men Type: BLOOD SPECIMENOrdering Facility: [facility] Address: [address] [place] [address] Performed By: #### 5 7021-8 ####[facility] LABCLIA [id number] [place] [address] [place] Immature granulocytes (Bld) [#/Vol] 10*3/uL Normal <0.10 [facility] Comment on above: Order Comment: Speci men Type: BLOOD SPECIMENOrdering Facility: [facility] Address: [address] [place] [address] Performed By: #### 5 7021-8 ####[facility] LABCLIA [id number] [place] [address] [place] Immature granulocytes/100 WBC (Bld) 0.2 % Normal [facility] Comment on above: Order Comment: Speci men Type: BLOOD SPECIMENOrdering Facility: [facility] Address: [address] [place] [address] Performed By: #### 5 7021-8 ####[facility] LABCLIA [id number] [place] [address] [place] Lymphocytes (Bld) [#/Vol] 1.44 10*3/uL Normal 1.00-4.00 [facility] Comment on above: Order Comment: Speci men Type: BLOOD SPECIMENOrdering Facility: [facility] Address: [address] [place] [address] Performed By: #### 5 7021-8 ####[facility] LABCLIA [id number] [place] [address] [place] Lymphocytes/100 WBC (Bld) 28.7 % Normal [facility] Comment on above: Order Comment: Speci men Type: BLOOD SPECIMENOrdering Facility: [facility] Address: [address] [place] [address] Performed By: #### 5 7021-8 ####[facility] LABCLIA [id number] [place] [address] [place] MCH (RBC) [Entitic mass] 29.6 pg Normal 26.0-34.0 [facility] Comment on above: Order Comment: Speci men Type: BLOOD SPECIMENOrdering Facility: [facility] Address: [address] [place] [address] Performed By: #### 5 7021-8 ####[facility] LABCLIA [id number] [place] [address] [place] MCHC (RBC) [Mass/Vol] 31.3 g/dL Normal 30.5-36.0 [facility] Comment on above: Order Comment: Speci men Type: BLOOD SPECIMENOrdering Facility: [facility] Address: [address] [place] [address] Performed By: #### 5 7021-8 ####[facility] LABCLIA [id number] [place] [address] [place] MCV (RBC) [Entitic vol] 94.3 fL Normal 80.0-100.0 [facility] Comment on above: Order Comment: Speci men Type: BLOOD SPECIMENOrdering Facility: [facility] Address: [address] [place] [address] Performed By: #### 5 7021-8 ####[facility] LABIA [id number] [place] [address] [place] Monocytes (Bld) [#/Vol] 0.47 10*3/uL Normal <0.87 [facility] Comment on above: Order Comment: Speci men Type: BLOOD SPECIMENOrdering Facility: [facility] Address: [address] [place] [address] Performed By: #### 5 7021-8 ####[facility] LABCLIA [id number] [place] [address] [place] Monocytes/100 WBC (Bld) 9.4 % Normal [facility] Comment on above: Order Comment: Speci men Type: BLOOD SPECIMENOrdering Facility: [facility] Address: [address] [place] [address] Performed By: #### 5 7021-8 ####[facility] LABCLIA [id number] [place] [address] [place] Neutrophils (Bld) [#/Vol] 2.71 10*3/uL Normal 1.45-7.50 [facility] Comment on above: Order Comment: Speci men Type: BLOOD SPECIMENOrdering Facility: [facility] Address: [address] [place] [address] Performed By: #### 5 7021-8 ####[facility] LABCLIA [id number] [place] [address] [place] Neutrophils/100 WBC (Bld) 53.9 % Normal [facility] Comment on above: Order Comment: Speci men Type: BLOOD SPECIMENOrdering Facility: [facility] Address: [address] [place] [address] Performed By: #### 5 7021-8 ####[facility] LABCLIA [id number] [place] [address] [place] Nucleated RBC (Bld) [#/Vol] 10*3/uL Normal <0.01 [facility] Comment on above: Order Comment: Speci men Type: BLOOD SPECIMENOrdering Facility: [facility] Address: [address] [place] [address] Performed By: #### 5 7021-8 ####[facility] LABCLIA [id number] [place] [address] [place] Nucleated RBC/100 WBC (Bld) [Ratio] 0.0 /100 WBC Normal [facility] Comment on above: Order Comment: Speci men Type: BLOOD SPECIMENOrdering Facility: [facility] Address: [address] [place] [address] Performed By: #### 5 7021-8 ####[facility] LABCLIA [id number] [place] [address] [place] Platelet mean volume (Bld) [Entitic vol] 9.2 fL Normal 9.0-12.7 [facility] Comment on above: Order Comment: Speci men Type: BLOOD SPECIMENOrdering Facility: [facility] Address: [address] [place] [address] Performed By: #### 5 7021-8 ####[facility] LABCLIA [id number] [place] [address] [place] Platelets (Bld) [#/Vol] 264 10*3/uL Normal 150-400 [facility] Comment on above: Order Comment: Speci men Type: BLOOD SPECIMENOrdering Facility: [facility] Address: [address] [place] [address] Performed By: #### 5 7021-8 ####[facility] LABCLIA [id number] [place] [address] [place] RBC (Bld) [#/Vol] 4.23 10*6/uL Normal 3.90-5.20 [facility] Comment on above: Order Comment: Speci men Type: BLOOD SPECIMENOrdering Facility: [facility] Address: [address] [place] [address] Performed By: #### 5 7021-8 ####[facility] LABCLIA [id number] [place] [address] [place] WBC (Bld) [#/Vol] 5.02 10*3/uL Normal 3.70-11.00 [facility] Comment on above: Order Comment: Speci men Type: BLOOD SPECIMENOrdering Facility: [facility] Address: [address] [place] [address] Performed By: #### 5 7021-8 ####[facility] LABCLIA [id number] [place] [address] [place] CONFIRM BLOOD TYPEon 024 ABO O Normal [facility] Comment on above: Order Comment: Speci men Type: BLOOD SPECIMENOrdering Facility: [facility] Address: [address] [place] [address] Performed By: #### C ONABO ####[facility] BLOOD BANKIA [id number] [address] [place] Rh Nom (Bld) Negative Normal [facility] Comment on above: Order Comment: Speci men Type: BLOOD SPECIMENOrdering Facility: [facility] Address: [address] [place] [address] Performed By: #### C ONAB ####CC [facility] [id number] [place] [address] [place] [facility] Comprehensive metabolic 2000 panelon 08-11-2023 Albumin [Mass/Vol] 4.3 g/dL Normal 3.9-4.9 [facility] Comment on above: Order Comment: Speci men Type: BLOOD SPECIMENOrdering Facility: [facility] Address: [address] [place] [address] Performed By: #### 2 4323-8 ####[facility] LABCLIA [id number] [place] [address] [place] ALP [Catalytic activity/Vol] 81 U/L Normal 34-123 [facility] Comment on above: Order Comment: Speci men Type: BLOOD SPECIMENOrdering Facility: [facility] Address: [address] [place] [address] Performed By: #### 2 4323-8 ####[facility] LABCLIA [id number] [place] [address] [place] ALT [Catalytic activity/Vol] 17 U/L Normal 7-38 [facility] Comment on above: Order Comment: Speci men Type: BLOOD SPECIMENOrdering Facility: [facility] Address: [address] [place] [address] Performed By: #### 2 4323-8 ####[facility] LABCLIA [id number] [place] [address] [place] Anion gap [Moles/Vol] 12 mmol/L Normal 9-18 [facility] Comment on above: Order Comment: Speci men Type: BLOOD SPECIMENOrdering Facility: [facility] Address: [address] [place] [address] Performed By: #### 2 4323-8 ####[facility] LABCLIA [id number] [place] [address] [place] AST [Catalytic activity/Vol] 23 U/L Normal 13-35 [facility] Comment on above: Order Comment: Speci men Type: BLOOD SPECIMENOrdering Facility: [facility] Address: [address] [place] [address] Performed By: #### 2 4323-8 ####[facility] LABCLIA [id number] [place] [address] [place] Bilirubin [Mass/Vol] 0.2 mg/dL Normal 0.2-1.3 [facility] Comment on above: Order Comment: Speci men Type: BLOOD SPECIMENOrdering Facility: [facility] Address: [address] [place] [address] Performed By: #### 2 4323-8 ####[facility] LABCLIA [id number] [place] [address] [place] Calcium [Mass/Vol] 9.7 mg/dL Normal 8.5-10.2 [facility] Comment on above: Order Comment: Speci men Type: BLOOD SPECIMENOrdering Facility: [facility] Address: [address] [place] [address] Performed By: #### 2 4323-8 ####[facility] LABCLIA [id number] [place] [address] [place] Chloride [Moles/Vol] 106 mmol/L High 97-105 [facility] Comment on above: Order Comment: Speci men Type: BLOOD SPECIMENOrdering Facility: [facility] Address: [address] [place] [address] Performed By: #### 2 4323-8 ####[facility] LABCLIA [id number] [place] [address] [place] CO2 [Moles/Vol] 25 mmol/L Normal 22-30 [facility] Comment on above: Order Comment: Speci men Type: BLOOD SPECIMENOrdering Facility: [facility] Address: [address] [place] [address] Performed By: #### 2 4323-8 ####[facility] LABCLIA [id number] [place] [address] [place] Creatinine [Mass/Vol] 0.72 mg/dL Normal 0.58-0.96 [facility] Comment on above: Order Comment: Speci men Type: BLOOD SPECIMENOrdering Facility: [facility] Address: [address] [place] [address] Performed By: #### 2 4323-8 ####[facility] LABCLIA [id number] [place] [address] [place] Creatinine and Glomerular filtration rate.predicted panel (S/P/Bld) 91 mL/min/1.73m??? Normal >=60 [facility] Comment on above: Order Comment: Speci men Type: BLOOD SPECIMENOrdering Facility: [facility] Address: [address] [place] [address] Result Comment: Farhana mated Glomerular Filtration Rate (eGFR) is calculated using the 2020 CKD-EPI creatinine equation. This equation utilizes serum creatinine, sex, and age as parameters. The creatinine assay has traceable calibration to isotope dilution-mass spectrometry. Refer to KDIGO guidelines for clinical interpretation. In patients with unstable renal function, e.g. those with acute kidney injury, the eGFR may not accurately reflect actual GFR. Performed By: #### 2 4323-8 ####[facility] LABCLIA [id number] [place] [address] [place] Glucose [Mass/Vol] 88 mg/dL Normal 74-99 [facility] Comment on above: Order Comment: Speci men Type: BLOOD SPECIMENOrdering Facility: [facility] Address: [address] [place] [address] Result Comment: The [place] [employer] (ADA) provides guidance for cutoff values for fasting glucose and random glucose. The ADA defines fasting as no caloric intake for at least 8 hours. Fasting plasma glucose results between 100 to 125 mg/dL indicate increased risk for diabetes (prediabetes).Fasting plasma glucose results greater than or equal to 126 mg/dL meet the criteria for diagnosis of diabetes. In the absence of unequivocal hyperglycemia, results should be confirmed by repeat testing. In a patient with classic symptoms of hyperglycemia or hyperglycemic crisis, random plasma glucose results greater than or equal to 200 mg/dL meet the criteria for diagnosis of diabetes.Reference: Standards of Medical Care in Diabetes 2016, [place] [employer]. Diabetes Care. 2016.39(Suppl 1). Performed By: #### 2 4323-8 ####[facility] LABCLIA [id number] [place] [address] [place] Potassium [Moles/Vol] 5.0 mmol/L Normal 3.7-5.1 [facility] Comment on above: Order Comment: Speci men Type: BLOOD SPECIMENOrdering Facility: [facility] Address: [address] [place] [address] Performed By: #### 2 4323-8 ####[facility] LABCLIA [id number] [place] [address] [place] Protein [Mass/Vol] 6.5 g/dL Normal 6.3-8.0 [facility] Comment on above: Order Comment: Speci men Type: BLOOD SPECIMENOrdering Facility: [facility] Address: [address] [place] [address] Performed By: #### 2 4323-8 ####[facility] LABCLIA [id number] [place] [address] [place] Sodium [Moles/Vol] 143 mmol/L Normal 136-144 [facility] Comment on above: Order Comment: Speci men Type: BLOOD SPECIMENOrdering Facility: [facility] Address: [address] [place] [address] Performed By: #### 2 4323-8 ####[facility] LABCLIA [id number] [place] [address] [place] Urea nitrogen [Mass/Vol] 15 mg/dL Normal 7-21 [facility] Comment on above: Order Comment: Speci men Type: BLOOD SPECIMENOrdering Facility: [facility] Address: [address] [place] [address] Performed By: #### 2 4323-8 ####[facility] LABCLIA [id number] [place] [address] [place] HISTORY PHYSICALon HISTORY PHYSICAL Normal [facility] TYPE AND SCREEN,30 DAYon ABO O Normal [facility] [facility] Comment on above: Order Comment: Speci men Type: BLOOD SPECIMENOrdering Facility: [facility] Address: [address] [place] [address] Performed By: #### T SCR30 ####CC [facility] BLOOD BANKCLIA [id number] [place] [address] [place] HISTORICAL AB SCR STATUS Negative Normal [facility] Comment on above: Order Comment: Speci men Type: BLOOD SPECIMENOrdering Facility: [facility] Address: [address] [place] [address] Performed By: #### T SCR30 ####CC [facility] BLOOD BANKCLIA [id number] [place] [address] [place] Rh Nom (Bld) Negative Normal [facility] Comment on above: Order Comment: Speci men Type: BLOOD SPECIMENOrdering Facility: [facility] Address: [address] [place] [address] Performed By: #### T SCR30 ####CC [facility] BLOOD BANKCLIA [id number] [place] [address] [place] CNOVon 08-07-2023 CNOV Normal [facility] CNPNon 08-07-2023 CNPN Normal [facility] CNPNon 08-03-2023 CNPN Normal [facility] CNPNon 07-31-2023 CNPN [facility] ANES POSTPROC EVALon 024 ANES POSTPROC EVAL HNO ID: [id number] Author: PADMINI BANUELOS MD Service: Anesthesiology Author Type: Anesthesiologist Type: Anesthesia Postprocedure Evaluation Filed: 07/27/2023 15:25 Note Text: POST ANESTHESIA EVALUATION NOTE : 1955 Procedure Summary Date: 07/27/23 Room / Location: Procedures Anesthesia Start: 1413 Anesthesia Stop: 1430 Procedure: SIGMOIDOSCOPY Diagnosis: Rectal cancer (HCC) (Personal history of malignant rectal neoplasm) Scheduled Providers: Laisha Singer MD; Padmini Banuelos MD; Sybil Al AA; Jolene Zhong RN Responsible Provider: Padmini Banuelos MD Anesthesia Type: MAC ASA Status: 2 Anesthesia Type: MAC Last Vitals Vitals Value Taken Time BP 145/68 07/27/23 1450 Temp 36.3 ?C (97.4 ?F) 07/27/23 1427 HR SpO2 58 07/27/23 1453 Resp 12 07/27/23 1453 SpO2 97 % 07/27/23 1453 Vitals shown include unfiled device data. Post Anesthesia Patient Status Patient Evaluation: bedside. Anticipated Disposition: phase 2 then home. Neurological Status: aware and responsive. Pulmonary Status: breathing comfortably on room air Airway Control: returned to baseline unsupported. Cardiovascular Status: stable. Pain Management: clinically adequate Postoperative Hydration: acceptable. Intraoperative Events: no significant anesthesia events Post Operative Nausea/Vomiting Status: no significant post operative nausea or vomiting Recommendation: continue current plan of care. Anesthesia Observations No Documentation SIGNATURE: Padmini Banuelos MD PATIENT NAME: Evan Gill DATE: July 27, 2023 TIME: 3:25 PM CSN: [id number] [facility] ANES PRE-OPon 07-27-2023 ANES PRE-OP HNO ID: [id number] Author: PADMINI BANUELOS MD Service: Anesthesiology Author Type: Anesthesiologist Type: Anesthesia Preprocedure Evaluation Filed: 07/27/2023 14:09 Note Text: ANESTHESIOLOGY DAY OF SURGERY NOTE : 1955 Procedure Information Date/Time: 07/27/23 1430 Scheduled providers: Laisha Singer MD; Padmini Banuelos MD; Sybil Al AA; Jolene Zhong RN Procedure: SIGMOIDOSCOPY Location: Procedures Estimated body mass index is 24.55 kg/m? as calculated from the following: Height as of this encounter: 162.6 cm (5' 4 ). Weight as of this encounter: 64.9 kg (143 lb). Most recent hematocrit and potassium results: Hematocrit 28.5 07/13/2023 Potassium 3.5 07/13/2023 Relevant Problems NEURO-PSYCH (+) Personal history of malignant melanoma of skin I - PHYSICAL EVALUATION AIRWAY Patient intubated: No. Tracheostomy tube not present Mallampati: II. TM distance: >3 FB. Neck ROM: full ROM without neurological symptoms. Mouth opening: adequate. Short neck: no. Thick neck: no DENTAL Dental findings: teeth intact. Additional exam findings: no II - ANESTHESIA PLAN ASA Score: 2 Anesthetic Plan: MAC The patient is not a current smoker. NPO Status: adequate Beta Tanya Monitoring Plan Monitoring plan: standard ASA. Post Procedure Analgesic Plan Postoperative analgesic plan: multimodal analgesia. Informed Consent Anesthetic risks, benefits, alternatives, personnel and consent discussed: yes. Patient / Responsible Democrat agrees to proceed: yes Patient / Surrogate agrees to blood products: blood products not planned Significant changes in the patient condition since the History and Physical, not otherwise documented in primary service progress note: no. Potential Anesthesia issues that may suggest increased risk of complications or contraindication to planned procedure: none. Vitals Value Taken Time BP 147/83 07/27/23 1324 Pulse 69 07/27/23 1324 Resp 16 07/27/23 1324 Temp 36.4 ?C (97.6 ?F) 07/27/23 1324 SpO2 100 % 07/27/23 1324 Outpatient Medications as of 07/27/2023 Medication Sig - omeprazole (PRILOSEC) 40 mg capsule Take 40 mg by mouth once daily. - vitamin D3/vitamin K2, MK4, (K2 PLUS D3 ORAL) Take 1 Dose by mouth once daily. - compounded progesterone 50 mg capsule Take 150 mg by mouth daily at bedtime. - Testosterone 12.5 mg/ 1.25 gram (1 %) glpm Apply 2 Pump as directed once daily. 0.5 MIL - MEDICATION, NON-DATABASE Take 1 Each by mouth once daily. Metabolic Maintenance DIM Complete - 100mg Diindolylmethane Supplement with Vitamin E, B12 + Active Folate - MEDICATION, NON-DATABASE Take 1 Each by mouth once daily. [employer] supplies guzman mitochondrial micronutrients and a smart combination of alpha lipoic acid, N-acetyl cysteine, and acetyl L-carnitine - vortioxetine (TRINTELLIX) 10 mg tablet Take 10 mg by mouth once daily. - oxybutynin ER (DITROPAN XL) 15 mg 24 hr Extended Rel Tab Take 15 mg by mouth. - amLODIPine-benazepril (LOTREL) 5-10 mg per capsule Take 1 capsule by mouth every morning. - meloxicam (MOBIC) 15 mg tablet Take 1 tablet by mouth once daily. - docosahexaenoic acid/epa (FISH OIL ORAL) Take 2,000 mg by mouth two times a day. - diphenoxylate-atropine (LOMOTIL) 2.5-0.025 mg per tablet Take 1 tablet by mouth four times a day as needed for up to 30 days. - nitroglycerin sublingual (NITROQUICK) 0.4 mg SL tablet Dissolve 1 tablet under the tongue as needed for chest pain, may repeat every 5 minutes if no relief up to 3 times. - Amoxicillin 500 mg tablet FOR DENTAL WORK - ondansetron orally disintegrating (ZOFRAN ODT) 8 mg disintegrating tablet Take 1 tablet by mouth every 8 hours as needed for nausea/vomiting. - prochlorperazine (COMPAZINE) 10 mg tablet Take 1 tablet by mouth every 6 hours as needed. - ondansetron (ZOFRAN) 8 mg tablet Take 1 tablet by mouth every 8 hours as needed for nausea/vomiting. - polyethylene glycol 3350 (MIRALAX) 17 gram/dose powder Take by mouth once daily. Dissolve dose in 4 - 8 ounces of liquid and take as directed. - aspirin, enteric coated (ASPIRIN, ENTERIC COATED) 81 mg EC tablet Take 81 mg by mouth once daily. - calcium carbonate/vitamin d3(CALCIUM 600 WITH VITAMIN D3 600 MG (1,500 MG)-400 UNIT CAP) Take 1 tablet by mouth once daily. No current facility-administered medications on file as of 07/27/2023. I have interviewed and examined the patient. I have reviewed the medical record and/or the pre-anesthesia evaluation, pertinent labs, and test results. This contains updated information obtained within 48 hours of Surgery/Procedure. SIGNATURE: Padmini Banuelos MD PATIENT NAME: Evan Gill DATE: July 27, 2023 TIME: 2:08 PM CSN: [id number] Normal [facility] Flexible Sigmoidoscopyon Flexible sigmoidoscopy [facility] Gastrointestinal Endoscopy Patient Name: Evan Gill Procedure Date: 07/27/2023 2:08 PM Date of : 1955 Admit Type: Outpatient Age: 67 Room: [place] [address] Gender: Female Note Status: Finalized Attending MD: Laisha Singer MD, [id number] Procedure: Flexible Sigmoidoscopy Indications: Personal history of malignant rectal neoplasm, Preoperative assessment Providers: Laisha Singer MD Patient Profile: Last Colonoscopy: 2022. Referring Physician: Laisha Singer MD (Referring MD) Medicines: Monitored Anesthesia Care Complications: No immediate complications. Estimated blood loss: None. Requesting Provider: Procedure: Pre-Anesthesia Assessment: - Prior to the procedure, a History and Physical was performed, and patient medications and allergies were reviewed. The patient's tolerance of previous anesthesia was also reviewed. The risks and benefits of the procedure and the sedation options and risks were discussed with the patient. All questions were answered, and informed consent was obtained. Prior Anticoagulants: The patient has taken no anticoagulant or antiplatelet agents except for aspirin. ASA Grade Assessment: II - A patient with mild systemic disease. After reviewing the risks and benefits, the patient was deemed in satisfactory condition to undergo the procedure. After obtaining informed consent, the scope was passed under direct vision. The Colonoscope was introduced through the anus and advanced to the sigmoid colon. The flexible sigmoidoscopy was accomplished without difficulty. The patient tolerated the procedure well. The quality of the bowel preparation was good. Moderate Sedation: MAC anesthesia was administered by the anesthesia team. Total Procedure Duration: 0 hours 4 minutes 50 seconds Findings: On perianal examination there was no palpable mass. A continuous area of nonbleeding ulcerated mucosa with no stigmata of recent bleeding was present in the distal to mid rectum spannin the distal to middle rectal valves with overlying plaque consistent with significant, but incomplete response to neoadjuvant treatment. Impression: - Residual disease in the mid-distal rectum visualized. - No specimens collected. Recommendation: - Discharge patient to home. Procedure Code(s): --- Professional --- 28744, Sigmoidoscopy, flexible; diagnostic, including collection of specimen(s) by brushing or washing, when performed (separate procedure) Diagnosis Code(s): --- Professional --- K62.6, Ulcer of anus and rectum Z85.048, Personal history of other malignant neoplasm of rectum, rectosigmoid junction, and anus Z01.818, Encounter for other preprocedural examination CPT copyright 2020 [employer]. All rights reserved. The codes documented in this report are preliminary and upon raw cheese worker review may be revised to meet current compliance requirements. Attending Participation: I personally performed the entire procedure. Scope In: 2:18:06 PM Scope Out: 2:22:56 PM MD Laisha Quinteros MD 07/27/2023 2:28:08 PM This report has been signed electronically by Laisha Singer MD Number of Addenda: 0 Note Initiated On: 07/27/2023 2:08 PM Estimated Blood Loss: Estimated blood loss: none. [facility] HISTORY PHYSICALon HISTORY PHYSICAL HNO ID: [id number] Author: LAIHSA SINGER MD Service: Colorectal Author Type: Physician Type: H&P Filed: 07/27/2023 14:08 Note Text: UPDATED HISTORY AND PHYSICAL EXAMINATION SERVICE DATE: 07/27/2023 SERVICE TIME: 2:07 PM PHYSICAL EXAM MUST BE COMPLETED ON ADMISSION The History and Physical (completed in the past 30 days) has been reviewed and the patient has been examined. The contents accurately reflect the patient's condition with the following additions or revisions since the HANDP was completed. CV: RRR Pulm: no increased respiratory effort Examination indicates no changes. This HANDP can be found in the EMR dated today. SIGNATURE: Laisha Singer MD PATIENT NAME: Evan Gill DATE: July 27, 2023 TIME: 2:07 PM [facility] CNSWon 07-21-2023 CNSW [facility] CNOVon 07-18-2023 CNOV [facility] CNPNon 07-14-2023 CNPN [facility] C diff Tox gens Stl Ql ELLIOTT+p robeon 07-13-2023 C. difficile toxin genes ELLIOTT+probe Ql (Stl) Negative Normal Negative for C. difficile toxin by PCR [facility] Comment on above: Order Comment: Speci men Type: STOOL SPECIMENOrdering Facility: [facility] Address: [address] [place] [address] Performed By: #### 5 4067-4, 73260-4 ####[facility] LABCLIA [id number] [place] [address] [place] CBC W Auto Differential pane l (Bld)on 07-13-2023 Basophils (Bld) [#/Vol] 10*3/uL Normal <0.11 [facility] Comment on above: Order Comment: Speci men Type: BLOOD SPECIMENOrdering Facility: [facility] Address: [address] [place] [address] Performed By: #### 5 7021-8 ####[facility] LABCLIA [id number] [place] [address] Basophils/100 WBC (Bld) 0.1 % Normal [facility] Comment on above: Order Comment: Speci men Type: BLOOD SPECIMENOrdering Facility: [facility] Address: [address] [place] [address] Performed By: #### 5 7021-8 ####[facility] LABCLIA [id number] [place] [address] Differential cell count method Nom (Bld) Auto Normal [facility] Comment on above: Order Comment: Speci men Type: BLOOD SPECIMENOrdering Facility: [facility] Address: [address] [place] [address] Performed By: #### 5 7021-8 ####[facility] LABCLIA [id number] [place] [address] Eosinophils (Bld) [#/Vol] 0.60 10*3/uL High <0.46 [facility] Comment on above: Order Comment: Speci men Type: BLOOD SPECIMENOrdering Facility: [facility] Address: [address] [place] [address] Performed By: #### 5 7021-8 ####[facility] LABCLIA [id number] [place] [address] Eosinophils/100 WBC (Bld) 8.6 % Normal [facility] Comment on above: Order Comment: Speci men Type: BLOOD SPECIMENOrdering Facility: [facility] Address: [address] [place] [address] Performed By: #### 5 7021-8 ####[facility] LABCLIA [id number] [place] [address] Erythrocyte distribution width (RBC) [Ratio] 13.2 % Normal 11.5-15.0 [facility] Comment on above: Order Comment: Speci men Type: BLOOD SPECIMENOrdering Facility: [facility] Address: [address] [place] [address] Performed By: #### 5 7021-8 ####[facility] LABCLIA [id number] [place] [address] Hematocrit (Bld) [Volume fraction] 28.5 % Low 36.0-46.0 [facility] Comment on above: Order Comment: Speci men Type: BLOOD SPECIMENOrdering Facility: [facility] Address: [address] [place] [address] Performed By: #### 5 7021-8 ####[facility] LABCLIA [id number] [place] [address] Hemoglobin (Bld) [Mass/Vol] 9.4 g/dL Low 11.5-15.5 [facility] Comment on above: Order Comment: Speci men Type: BLOOD SPECIMENOrdering Facility: [facility] Address: [address] [place] [address] Performed By: #### 5 7021-8 ####[facility] LABCLIA [id number] [place] [address] Immature granulocytes (Bld) [#/Vol] 0.03 10*3/uL Normal <0.10 [facility] Comment on above: Order Comment: Speci men Type: BLOOD SPECIMENOrdering Facility: [facility] Address: [address] [place] [address] Performed By: #### 5 7021-8 ####[facility] LABCLIA [id number] [place] [address] Immature granulocytes/100 WBC (Bld) 0.4 % Normal [facility] Comment on above: Order Comment: Speci men Type: BLOOD SPECIMENOrdering Facility: [facility] Address: [address] [place] [address] Performed By: #### 5 7021-8 ####[facility] LABCLIA [id number] [place] [address] Lymphocytes (Bld) [#/Vol] 1.13 10*3/uL Normal 1.00-4.00 [facility] Comment on above: Order Comment: Speci men Type: BLOOD SPECIMENOrdering Facility: [facility] Address: [address] [place] [address] Performed By: #### 5 7021-8 ####[facility] LABCLIA [id number] [place] [address] Lymphocytes/100 WBC (Bld) 16.1 % Normal [facility] Comment on above: Order Comment: Speci men Type: BLOOD SPECIMENOrdering Facility: [facility] Address: [address] [place] [address] Performed By: #### 5 7021-8 ####[facility] LABCLIA [id number] [place] [address] MCH (RBC) [Entitic mass] 28.7 pg Normal 26.0-34.0 [facility] Comment on above: Order Comment: Speci men Type: BLOOD SPECIMENOrdering Facility: [facility] Address: [address] [place] [address] Performed By: #### 5 7021-8 ####[facility] LABCLIA [id number] [place] [address] MCHC (RBC) [Mass/Vol] 33.0 g/dL Normal 30.5-36.0 [facility] Comment on above: Order Comment: Speci men Type: BLOOD SPECIMENOrdering Facility: [facility] Address: [address] [place] [address] Performed By: #### 5 7021-8 ####[facility] LABCLIA [id number] [place] [address] MCV (RBC) [Entitic vol] 86.9 fL Normal 80.0-100.0 [facility] Comment on above: Order Comment: Speci men Type: BLOOD SPECIMENOrdering Facility: [facility] Address: [address] [place] [address] Performed By: #### 5 7021-8 ####[facility] LABCLIA [id number] [place] [address] Monocytes (Bld) [#/Vol] 0.46 10*3/uL Normal <0.87 [facility] Comment on above: Order Comment: Speci men Type: BLOOD SPECIMENOrdering Facility: [facility] Address: [address] [place] [address] Performed By: #### 5 7021-8 ####[facility] LABCLIA [id number] [place] [address] Monocytes/100 WBC (Bld) 6.6 % Normal [facility] Comment on above: Order Comment: Speci men Type: BLOOD SPECIMENOrdering Facility: [facility] Address: [address] [place] [address] Performed By: #### 5 7021-8 ####[facility] LABCLIA [id number] [place] [address] Neutrophils (Bld) [#/Vol] 4.78 10*3/uL Normal 1.45-7.50 [facility] Comment on above: Order Comment: Speci men Type: BLOOD SPECIMENOrdering Facility: [facility] Address: [address] [place] [address] Performed By: #### 5 7021-8 ####[facility] LABCLIA [id number] [place] [address] Neutrophils/100 WBC (Bld) 68.2 % Normal [facility] Comment on above: Order Comment: Speci men Type: BLOOD SPECIMENOrdering Facility: [facility] Address: [address] [place] [address] Performed By: #### 5 7021-8 ####[facility] LABCLIA [id number] [place] [address] Nucleated RBC (Bld) [#/Vol] 10*3/uL Normal <0.01 [facility] Comment on above: Order Comment: Speci men Type: BLOOD SPECIMENOrdering Facility: [facility] Address: [address] [place] [address] Performed By: #### 5 7021-8 ####[facility] LABCLIA [id number] [place] [address] Nucleated RBC/100 WBC (Bld) [Ratio] 0.0 /100 WBC Normal [facility] Comment on above: Order Comment: Speci men Type: BLOOD SPECIMENOrdering Facility: [facility] Address: [address] [place] [address] Performed By: #### 5 7021-8 ####[facility] LABCLIA [id number] [place] [address] Platelet mean volume (Bld) [Entitic vol] 8.7 fL Low 9.0-12.7 [facility] Comment on above: Order Comment: Speci men Type: BLOOD SPECIMENOrdering Facility: [facility] Address: [address] [place] [address] Performed By: #### 5 7021-8 ####[facility] LABCLIA [id number] [place] [address] Platelets (Bld) [#/Vol] 180 10*3/uL Normal 150-400 [facility] Comment on above: Order Comment: Speci men Type: BLOOD SPECIMENOrdering Facility: [facility] Address: [address] [place] [address] Performed By: #### 5 7021-8 ####[facility] LABCLIA [id number] [place] [address] RBC (Bld) [#/Vol] 3.28 10*6/uL Low 3.90-5.20 [facility] Comment on above: Order Comment: Speci men Type: BLOOD SPECIMENOrdering Facility: [facility] Address: [address] [place] [address] Performed By: #### 5 7021-8 ####[facility] LABIA [id number] [place] [address] WBC (Bld) [#/Vol] 7.01 10*3/uL Normal 3.70-11.00 [facility] Comment on above: Order Comment: Speci men Type: BLOOD SPECIMENOrdering Facility: [facility] Address: [address] [place] [address] Performed By: #### 5 7021-8 ####[facility] LABCLIA [id number] [place] [address] CNPNon 07-13-2023 CNPN Normal [facility] Comprehensive metabolic 2000 panelon 07-13-2023 Albumin [Mass/Vol] 3.5 g/dL Low 3.9-4.9 [facility] Comment on above: Order Comment: Speci men Type: BLOOD SPECIMENOrdering Facility: [facility] Address: [address] [place] [address] Performed By: #### 2 4323-8 ####[facility] LABCLIA [id number] [place] [address] ALP [Catalytic activity/Vol] 59 U/L Normal 34-123 [facility] Comment on above: Order Comment: Speci men Type: BLOOD SPECIMENOrdering Facility: [facility] Address: [address] [place] [address] Performed By: #### 2 4323-8 ####[facility] LABCLIA [id number] [place] [address] ALT [Catalytic activity/Vol] 15 U/L Normal 7-38 [facility] Comment on above: Order Comment: Speci men Type: BLOOD SPECIMENOrdering Facility: [facility] Address: [address] [place] [address] Performed By: #### 2 4323-8 ####[facility] LABCLIA [id number] [place] [address] Anion gap [Moles/Vol] 10 mmol/L Normal 9-18 [facility] Comment on above: Order Comment: Speci men Type: BLOOD SPECIMENOrdering Facility: [facility] Address: [address] [place] [address] Performed By: #### 2 4323-8 ####[facility] LABCLIA [id number] [place] [address] AST [Catalytic activity/Vol] 15 U/L Normal 13-35 [facility] Comment on above: Order Comment: Speci men Type: BLOOD SPECIMENOrdering Facility: [facility] Address: [address] [place] [address] Performed By: #### 2 4323-8 ####[facility] LABCLIA [id number] [place] [address] Bilirubin [Mass/Vol] 0.3 mg/dL Normal 0.2-1.3 [facility] Comment on above: Order Comment: Speci men Type: BLOOD SPECIMENOrdering Facility: [facility] Address: [address] [place] [address] Performed By: #### 2 4323-8 ####[facility] LABCLIA [id number] [place] [address] Calcium [Mass/Vol] 8.4 mg/dL Low 8.5-10.2 [facility] Comment on above: Order Comment: Speci men Type: BLOOD SPECIMENOrdering Facility: [facility] Address: [address] [place] [address] Performed By: #### 2 4323-8 ####[facility] LABCLIA [id number] [place] [address] Chloride [Moles/Vol] 110 mmol/L High 97-105 [facility] Comment on above: Order Comment: Speci men Type: BLOOD SPECIMENOrdering Facility: [facility] Address: [address] [place] [address] Performed By: #### 2 4323-8 ####[facility] LABCLIA [id number] [place] [address] CO2 [Moles/Vol] 23 mmol/L Normal 22-30 [facility] Comment on above: Order Comment: Speci men Type: BLOOD SPECIMENOrdering Facility: [facility] Address: [address] [place] [address] Performed By: #### 2 4323-8 ####[facility] LABCLIA [id number] [place] [address] Creatinine [Mass/Vol] 0.63 mg/dL Normal 0.58-0.96 [facility] Comment on above: Order Comment: Speci men Type: BLOOD SPECIMENOrdering Facility: [facility] Address: [address] [place] [address] Performed By: #### 2 4323-8 ####[facility] LABCLIA [id number] [place] [address] Creatinine and Glomerular filtration rate.predicted panel (S/P/Bld) 96 mL/min/1.73m??? Normal >=60 [facility] Comment on above: Order Comment: Speci men Type: BLOOD SPECIMENOrdering Facility: [facility] Address: [address] [place] [address] Result Comment: Farhana mated Glomerular Filtration Rate (eGFR) is calculated using the 2020 CKD-EPI creatinine equation. This equation utilizes serum creatinine, sex, and age as parameters. The creatinine assay has traceable calibration to isotope dilution-mass spectrometry. Refer to KDIGO guidelines for clinical interpretation. In patients with unstable renal function, e.g. those with acute kidney injury, the eGFR may not accurately reflect actual GFR. Performed By: #### 2 4323-8 ####[facility] LABCLIA [id number] [place] [address] Glucose [Mass/Vol] 96 mg/dL Normal 74-99 [facility] Comment on above: Order Comment: Speci men Type: BLOOD SPECIMENOrdering Facility: [facility] Address: [address] [address] [place], [place] [address] Result Comment: The [place] Diabetes Association (ADA) provides guidance for cutoff values for fasting glucose and random glucose. The ADA defines fasting as no caloric intake for at least 8 hours. Fasting plasma glucose results between 100 to 125 mg/dL indicate increased risk for diabetes (prediabetes).Fasting plasma glucose results greater than or equal to 126 mg/dL meet the criteria for diagnosis of diabetes. In the absence of unequivocal hyperglycemia, results should be confirmed by repeat testing. In a patient with classic symptoms of hyperglycemia or hyperglycemic crisis, random plasma glucose results greater than or equal to 200 mg/dL meet the criteria for diagnosis of diabetes.Reference: Standards of Medical Care in Diabetes 2016, [place] [employer]. Diabetes Care. 2016.39(Suppl 1). Performed By: #### 2 4323-8 ####[facility] LABCLIA [id number] [place] [address] Potassium [Moles/Vol] 3.5 mmol/L Low 3.7-5.1 [facility] Comment on above: Order Comment: Speci men Type: BLOOD SPECIMENOrdering Facility: [facility] Address: [address] [place] [address] Performed By: #### 2 4323-8 ####[facility] LABCLIA [id number] [place] [address] Protein [Mass/Vol] 5.4 g/dL Low 6.3-8.0 [facility] Comment on above: Order Comment: Speci men Type: BLOOD SPECIMENOrdering Facility: [facility] Address: [address] [place] [address] Performed By: #### 2 4323-8 ####[facility] LABCLIA [id number] [place] [address] Sodium [Moles/Vol] 143 mmol/L Normal 136-144 [facility] Comment on above: Order Comment: Speci men Type: BLOOD SPECIMENOrdering Facility: [facility] Address: [address] [place] [address] Performed By: #### 2 4323-8 ####[facility] LABCLIA [id number] [place] [address] Urea nitrogen [Mass/Vol] 16 mg/dL Normal 7-21 [facility] Comment on above: Order Comment: Speci men Type: BLOOD SPECIMENOrdering Facility: [facility] Address: [address] [place] [address] Performed By: #### 2 4323-8 ####[facility] LABCLIA [id number] [place] [address] Gastrointestinal pathogens i dentified ELLIOTT+probe Nom (Stl)on 07-13-2023 Campylobacter sp DNA ELLIOTT+probe Nom (Unsp spec) Not detected Normal Not Detected [facility] Comment on above: Order Comment: Speci men Type: STOOL SPECIMENOrdering Facility: [facility] Address: [address] [place] [address] Performed By: #### 5 4067-4, 67045-2 ####[facility] LABCLIA [id number] [place] [address] [place] Salmonella sp DNA ELLIOTT+probe Ql (Unsp spec) Not detected Normal Not Detected [facility] Comment on above: Order Comment: Speci men Type: STOOL SPECIMENOrdering Facility: [facility] Address: [address] [place] [address] Performed By: #### 5 4067-4, 59923-7 ####[facility] LABCLIA [id number] [place] [address] [place] Shiga toxin stx gene ELLIOTT+probe Nom (Unsp spec) Not detected Normal Not Detected [facility] Comment on above: Order Comment: Speci men Type: STOOL SPECIMENOrdering Facility: [facility] Address: [address] [place] [address] Performed By: #### 5 4067-4, 72541-5 ####[facility] LABCLIA [id number] [place] [address] [place] Shigella sp DNA ELLIOTT+probe Ql (Unsp spec) Not detected Normal Not Detected [facility] Comment on above: Order Comment: Speci men Type: STOOL SPECIMENOrdering Facility: [facility] Address: [address] [place] [address] Performed By: #### 5 4067-4, 68510-2 ####[facility] LABCLIA [id number] [place] [address] [place] CNPNon 07-12-2023 CNPN Normal [facility] CNPNon 07-11-2023 CNPN Normal [facility] CNPNon 07-07-2023 CNPN Normal [facility] CNPNon 07-06-2023 CNPN Normal [facility] CBC W Auto Differential pane l (Bld)on 07-05-2023 Basophils (Bld) [#/Vol] 10*3/uL Normal <0.11 [facility] Comment on above: Order Comment: Speci men Type: BLOOD SPECIMENOrdering Facility: [facility] Address: [address] [place] [address] Performed By: #### 5 7021-8 ####[facility] LABCLIA [id number] [place] [address] Basophils/100 WBC (Bld) 0.5 % Normal [facility] Comment on above: Order Comment: Speci men Type: BLOOD SPECIMENOrdering Facility: [facility] Address: [address] [place] [address] Performed By: #### 5 7021-8 ####[facility] LABCLIA [id number] [place] [address] Differential cell count method Nom (Bld) Auto Normal [facility] Comment on above: Order Comment: Speci men Type: BLOOD SPECIMENOrdering Facility: [facility] Address: [address] [place] [address] Performed By: #### 5 7021-8 ####[facility] LABCLIA [id number] [place] [address] Eosinophils (Bld) [#/Vol] 0.41 10*3/uL Normal <0.46 [facility] Comment on above: Order Comment: Speci men Type: BLOOD SPECIMENOrdering Facility: [facility] Address: [address] [place] [address] Performed By: #### 5 7021-8 ####[facility] LABCLIA [id number] [place] [address] Eosinophils/100 WBC (Bld) 9.6 % Normal [facility] Comment on above: Order Comment: Speci men Type: BLOOD SPECIMENOrdering Facility: [facility] Address: [address] [place] [address] Performed By: #### 5 7021-8 ####[facility] LABCLIA [id number] [place] [address] Erythrocyte distribution width (RBC) [Ratio] 14.0 % Normal 11.5-15.0 [facility] Comment on above: Order Comment: Speci men Type: BLOOD SPECIMENOrdering Facility: [facility] Address: [address] [place] [address] Performed By: #### 5 7021-8 ####[facility] LABCLIA [id number] [place] [address] Hematocrit (Bld) [Volume fraction] 31.1 % Low 36.0-46.0 [facility] Comment on above: Order Comment: Speci men Type: BLOOD SPECIMENOrdering Facility: [facility] Address: [address] [place] [address] Performed By: #### 5 7021-8 ####[facility] LABCLIA [id number] [place] [address] Hemoglobin (Bld) [Mass/Vol] 9.9 g/dL Low 11.5-15.5 [facility] Comment on above: Order Comment: Speci men Type: BLOOD SPECIMENOrdering Facility: [facility] Address: [address] [place] [address] Performed By: #### 5 7021-8 ####[facility] LABCLIA [id number] [place] [address] Immature granulocytes (Bld) [#/Vol] 10*3/uL Normal <0.10 [facility] Comment on above: Order Comment: Speci men Type: BLOOD SPECIMENOrdering Facility: [facility] Address: [address] [place] [address] Performed By: #### 5 7021-8 ####[facility] LABCLIA [id number] [place] [address] Immature granulocytes/100 WBC (Bld) 0.2 % Normal [facility] Comment on above: Order Comment: Speci men Type: BLOOD SPECIMENOrdering Facility: [facility] Address: [address] [place] [address] Performed By: #### 5 7021-8 ####[facility] LABCLIA [id number] [place] [address] Lymphocytes (Bld) [#/Vol] 1.16 10*3/uL Normal 1.00-4.00 [facility] Comment on above: Order Comment: Speci men Type: BLOOD SPECIMENOrdering Facility: [facility] Address: [address] [place] [address] Performed By: #### 5 7021-8 ####[facility] LABCLIA [id number] [place] [address] Lymphocytes/100 WBC (Bld) 27.2 % Normal [facility] Comment on above: Order Comment: Speci men Type: BLOOD SPECIMENOrdering Facility: [facility] Address: [address] [place] [address] Performed By: #### 5 7021-8 ####[facility] LABCLIA [id number] [place] [address] MCH (RBC) [Entitic mass] 28.9 pg Normal 26.0-34.0 [facility] Comment on above: Order Comment: Speci men Type: BLOOD SPECIMENOrdering Facility: [facility] Address: [address] [place] [address] Performed By: #### 5 7021-8 ####[facility] LABCLIA [id number] [place] [address] MCHC (RBC) [Mass/Vol] 31.8 g/dL Normal 30.5-36.0 [facility] Comment on above: Order Comment: Speci men Type: BLOOD SPECIMENOrdering Facility: [facility] Address: [address] [place] [address] Performed By: #### 5 7021-8 ####[facility] LABCLIA [id number] [place] [address] MCV (RBC) [Entitic vol] 90.7 fL Normal 80.0-100.0 [facility] Comment on above: Order Comment: Speci men Type: BLOOD SPECIMENOrdering Facility: [facility] Address: [address] [place] [address] Performed By: #### 5 7021-8 ####[facility] LABIA [id number] [place] [address] Monocytes (Bld) [#/Vol] 0.39 10*3/uL Normal <0.87 [facility] Comment on above: Order Comment: Speci men Type: BLOOD SPECIMENOrdering Facility: [facility] Address: [address] [place] [address] Performed By: #### 5 7021-8 ####[facility] LABCLIA [id number] [place] [address] Monocytes/100 WBC (Bld) 9.1 % Normal [facility] Comment on above: Order Comment: Speci men Type: BLOOD SPECIMENOrdering Facility: [facility] Address: [address] [place] [address] Performed By: #### 5 7021-8 ####[facility] LABCLIA [id number] [place] [address] Neutrophils (Bld) [#/Vol] 2.28 10*3/uL Normal 1.45-7.50 [facility] Comment on above: Order Comment: Speci men Type: BLOOD SPECIMENOrdering Facility: [facility] Address: [address] [place] [address] Performed By: #### 5 7021-8 ####[facility] LABCLIA [id number] [place] [address] Neutrophils/100 WBC (Bld) 53.4 % Normal [facility] Comment on above: Order Comment: Speci men Type: BLOOD SPECIMENOrdering Facility: [facility] Address: [address] [place] [address] Performed By: #### 5 7021-8 ####[facility] LABCLIA [id number] [place] [address] Nucleated RBC (Bld) [#/Vol] 10*3/uL Normal <0.01 [facility] Comment on above: Order Comment: Speci men Type: BLOOD SPECIMENOrdering Facility: [facility] Address: [address] [place] [address] Performed By: #### 5 7021-8 ####[facility] LABCLIA [id number] [place] [address] Nucleated RBC/100 WBC (Bld) [Ratio] 0.0 /100 WBC Normal [facility] Comment on above: Order Comment: Speci men Type: BLOOD SPECIMENOrdering Facility: [facility] Address: [address] [place] [address] Performed By: #### 5 7021-8 ####[facility] LABCLIA [id number] [place] [address] Platelet mean volume (Bld) [Entitic vol] 8.2 fL Low 9.0-12.7 [facility] Comment on above: Order Comment: Speci men Type: BLOOD SPECIMENOrdering Facility: [facility] Address: [address] [place] [address] Performed By: #### 5 7021-8 ####[facility] LABCLIA [id number] [place] [address] Platelets (Bld) [#/Vol] 222 10*3/uL Normal 150-400 [facility] Comment on above: Order Comment: Speci men Type: BLOOD SPECIMENOrdering Facility: [facility] Address: [address] [place] [address] Performed By: #### 5 7021-8 ####[facility] LABIA [id number] [place] [address] RBC (Bld) [#/Vol] 3.43 10*6/uL Low 3.90-5.20 [facility] Comment on above: Order Comment: Speci men Type: BLOOD SPECIMENOrdering Facility: [facility] Address: [address] [place] [address] Performed By: #### 5 7021-8 ####[facility] LABCLIA [id number] [place] [address] WBC (Bld) [#/Vol] 4.27 10*3/uL Normal 3.70-11.00 [facility] Comment on above: Order Comment: Speci men Type: BLOOD SPECIMENOrdering Facility: [facility] Address: [address] [place] [address] Performed By: #### 5 7021-8 ####[facility] LABCLIA [id number] [place] [address] CEA SerPl-mCncon 07-05-2023 Carcinoembryonic Ag [Mass/Vol] 2.7 ng/mL Normal <=2.9 [facility] Comment on above: Order Comment: Speci men Type: BLOOD SPECIMENOrdering Facility: [facility] Address: [address] [place] [address] Result Comment: Carc inoembryonic antigen test is used as an aid in monitoring response to treatment or recurrence in patients with established colorectal, breast, lung, prostatic, pancreatic, and ovarian carcinomas. Clinical correlation is required.The Carcinoembryonic antigen test was performed using the [employer] DXI paramagnetic particle chemiluminescent immunoassay method. Results obtained with different assay methods or kits cannot be used interchangeably. Performed By: #### 2 039-6 ####[facility] LABCLIA [id number] [facility] [place] [address] [place] CNOVSPon 07-05-2023 CNOVSP Normal [facility] Comprehensive metabolic 2000 panelon 07-05-2023 Albumin [Mass/Vol] 3.8 g/dL Low 3.9-4.9 [facility] Comment on above: Order Comment: Speci men Type: BLOOD SPECIMENOrdering Facility: [facility] Address: [address] [place] [address] Performed By: #### 2 4323-8 ####[facility] LABCLIA [id number] [place] [address] ALP [Catalytic activity/Vol] 73 U/L Normal 34-123 [facility] Comment on above: Order Comment: Speci men Type: BLOOD SPECIMENOrdering Facility: [facility] Address: [address] [place] [address] Performed By: #### 2 4323-8 ####[facility] LABCLIA [id number] [place] [address] ALT [Catalytic activity/Vol] 11 U/L Normal 7-38 [facility] Comment on above: Order Comment: Speci men Type: BLOOD SPECIMENOrdering Facility: [facility] Address: [address] [place] [address] Performed By: #### 2 4323-8 ####[facility] LABCLIA [id number] [place] [address] Anion gap [Moles/Vol] 11 mmol/L Normal 9-18 [facility] Comment on above: Order Comment: Speci men Type: BLOOD SPECIMENOrdering Facility: [facility] Address: [address] [place] [address] Performed By: #### 2 4323-8 ####[facility] LABCLIA [id number] [place] [address] AST [Catalytic activity/Vol] 16 U/L Normal 13-35 [facility] Comment on above: Order Comment: Speci men Type: BLOOD SPECIMENOrdering Facility: [facility] Address: [address] [place] [address] Performed By: #### 2 4323-8 ####[facility] LABCLIA [id number] [place] [address] Bilirubin [Mass/Vol] 0.2 mg/dL Normal 0.2-1.3 [facility] Comment on above: Order Comment: Speci men Type: BLOOD SPECIMENOrdering Facility: [facility] Address: [address] [place] [address] Performed By: #### 2 4323-8 ####[facility] LABCLIA [id number] [place] [address] Calcium [Mass/Vol] 8.7 mg/dL Normal 8.5-10.2 [facility] Comment on above: Order Comment: Speci men Type: BLOOD SPECIMENOrdering Facility: [facility] Address: [address] [place] [address] Performed By: #### 2 4323-8 ####[facility] LABCLIA [id number] [place] [address] Chloride [Moles/Vol] 108 mmol/L High 97-105 [facility] Comment on above: Order Comment: Speci men Type: BLOOD SPECIMENOrdering Facility: [facility] Address: [address] [place] [address] Performed By: #### 2 4323-8 ####[facility] LABCLIA [id number] [place] [address] CO2 [Moles/Vol] 25 mmol/L Normal 22-30 [facility] Comment on above: Order Comment: Speci men Type: BLOOD SPECIMENOrdering Facility: [facility] Address: [address] [place] [address] Performed By: #### 2 4323-8 ####[facility] LABCLIA [id number] [place] [address] Creatinine [Mass/Vol] 0.66 mg/dL Normal 0.58-0.96 [facility] Comment on above: Order Comment: Speci men Type: BLOOD SPECIMENOrdering Facility: [facility] Address: [address] [place] [address] Performed By: #### 2 4323-8 ####[facility] LABCLIA [id number] [place] [address] Creatinine and Glomerular filtration rate.predicted panel (S/P/Bld) 95 mL/min/1.73m??? Normal >=60 [facility] Comment on above: Order Comment: Speci men Type: BLOOD SPECIMENOrdering Facility: [facility] Address: [address] [place] [address] Result Comment: Farhana mated Glomerular Filtration Rate (eGFR) is calculated using the 2020 CKD-EPI creatinine equation. This equation utilizes serum creatinine, sex, and age as parameters. The creatinine assay has traceable calibration to isotope dilution-mass spectrometry. Refer to KDIGO guidelines for clinical interpretation. In patients with unstable renal function, e.g. those with acute kidney injury, the eGFR may not accurately reflect actual GFR. Performed By: #### 2 4323-8 ####[facility] LABCLIA [id number] [place] [address] Glucose [Mass/Vol] 140 mg/dL High 74-99 [facility] Comment on above: Order Comment: Speci men Type: BLOOD SPECIMENOrdering Facility: [facility] Address: [address] [place], [place] [address] Result Comment: The [place] Diabetes [employer] (ADA) provides guidance for cutoff values for fasting glucose and random glucose. The ADA defines fasting as no caloric intake for at least 8 hours. Fasting plasma glucose results between 100 to 125 mg/dL indicate increased risk for diabetes (prediabetes).Fasting plasma glucose results greater than or equal to 126 mg/dL meet the criteria for diagnosis of diabetes. In the absence of unequivocal hyperglycemia, results should be confirmed by repeat testing. In a patient with classic symptoms of hyperglycemia or hyperglycemic crisis, random plasma glucose results greater than or equal to 200 mg/dL meet the criteria for diagnosis of diabetes.Reference: Standards of Medical Care in Diabetes 2016, [place] [employer]. Diabetes Care. 2016.39(Suppl 1). Performed By: #### 2 4323-8 ####[facility] LABCLIA [id number] [place] [address] Potassium [Moles/Vol] 3.9 mmol/L Normal 3.7-5.1 [facility] Comment on above: Order Comment: Speci men Type: BLOOD SPECIMENOrdering Facility: [facility] Address: [address] [place] [address] Performed By: #### 2 4323-8 ####[facility] LABCLIA [id number] [place] [address] Protein [Mass/Vol] 5.8 g/dL Low 6.3-8.0 [facility] Comment on above: Order Comment: Speci men Type: BLOOD SPECIMENOrdering Facility: [facility] Address: [address] [place], [place] [address] Performed By: #### 2 4323-8 ####[facility] LABCLIA [id number] [place] [address] Sodium [Moles/Vol] 144 mmol/L Normal 136-144 [facility] Comment on above: Order Comment: Speci men Type: BLOOD SPECIMENOrdering Facility: [facility] Address: [address] [place] [address] Performed By: #### 2 4323-8 ####[facility] LABCLIA [id number] [place] [address] Urea nitrogen [Mass/Vol] 19 mg/dL Normal 7-21 [facility] Comment on above: Order Comment: Speci men Type: BLOOD SPECIMENOrdering Facility: [facility] Address: [address] [place] [address] Performed By: #### 2 4323-8 ####[facility] LABCLIA [id number] [place] [address] Ferritin [facility] 2022 Ferritin [Mass/Vol] 15.6 ng/mL Normal 14.7-205.1 [facility] Comment on above: Order Comment: Speci men Type: BLOOD SPECIMENOrdering Facility: [facility] Address: [address] [place] [address] Performed By: #### 5 0190-8, 6-4 ####[facility] LABCLIA [id number] [place] [address] [place] Iron and Iron binding capaci panelon 07-05-2023 Iron [Mass/Vol] 52 ug/dL Normal 41-186 [facility] Comment on above: Order Comment: Speci men Type: BLOOD SPECIMENOrdering Facility: [facility] Address: [address] [place] [address] Performed By: #### 5 0190-8, 6-4 ####[facility] LABCLIA [id number] [place] [address] [place] Iron binding capacity [Mass/Vol] 329 ug/dL Normal 232-386 [facility] Comment on above: Order Comment: Speci men Type: BLOOD SPECIMENOrdering Facility: [facility] Address: [address] [place] [id number] Performed By: #### 5 0190-8, 2276-4 ####[facility] [id number] [place] [address] [place] Iron/TIBC [Molar ratio] 15.8 % Normal 15.0-57.0 [facility] Comment on above: Order Comment: Speci men Type: BLOOD SPECIMENOrdering Facility: [facility] Address: [address] [place] [address] Performed By: #### 5 0190-8, 6-4 ####[facility] LABIA [id number] [place] [address] [place] Basic Metabolic Panelon 12- Anion gap [Moles/Vol] 11.6 mmol/L Normal 6.0-15.0 [facility] Comment on above: Performed By: #### G LULS #### Point of Care testing , Calcium [Mass/Vol] 8.6 mg/dL Normal 8.6-10.3 [facility] Comment on above: Performed By: #### G LULS #### Point of Care testing , Chloride [Moles/Vol] 109 mmol/L High 98-107 [facility] Comment on above: Performed By: #### G LULS #### Point of Care testing , CO2 [Moles/Vol] 24.5 mmol/L Normal 21.0-31.0 [facility] Comment on above: Performed By: #### G LULS #### Point of Care testing , Creatinine [Mass/Vol] 0.74 mg/dL Normal 0.60-1.20 [facility] Comment on above: Performed By: #### G LULS #### Point of Care testing , Creatinine Clr Calc Pharmacy 57.31 Normal [facility] Comment on above: Result Comment: PERF ORMED BY: [facility] [place] [address] PATHOLOGIST GASOLINE ATTENDANT JIANLAN SUN M.D. Performed By: #### G LULS #### Point of Care testing , GFR/1.73 sq M.predicted MDRD (S/P/Bld) [Vol rate/Area] mL/min/{1.73_m2} Normal [facility] Comment on above: Performed By: #### G LULS #### Point of Care testing , Glucose [Mass/Vol] 91 mg/dL Normal 70-100 [facility] Comment on above: Result Comment: [employer] Glucose Reference Range is dependent on time and content of last meal. Glucose of more than 200 mg/dL in a nonstressed, ambulatory subject supports the diagnosis of Diabetes Mellitus. ADA recommended reference range Performed By: #### G LULS #### Point of Care testing , Potassium [Moles/Vol] 4.1 mmol/L Normal 3.5-5.1 [facility] Comment on above: Performed By: #### G LULS #### Point of Care testing , Sodium [Moles/Vol] 141 mmol/L Normal 136-145 [facility] Comment on above: Performed By: #### G LULS #### Point of Care testing , Urea nitrogen [Mass/Vol] 21 mg/dL Normal 7-25 [facility] Comment on above: Performed By: #### G LULS #### Point of Care testing , Basophils Auto (Bld) [#/Vol] Ordered By: David Reyes on 06-26-2023 Basophils (Bld) [#/Vol] 0.0 10*3/uL 0.0-0.2 [facility] Basophils/100 WBC Auto (Bld) Ordered By: David Reyes on 06-26-2023 Basophils/100 WBC (Bld) 1.0 % . [facility] Calcium [Mass/volume] in Ser um or PlasmaOrdered By: David Reyes on 06-26-2023 Calcium [Mass/Vol] 8.6 mg/dL 8.6-10.3 [facility] Carbon dioxide, total [Moles /volume] in Serum or PlasmaOrdered By: David Reyes on 06-26-2023 CO2 [Moles/Vol] 24.5 mmol/L 21.0-31.0 [facility] Chloride [Moles/volume] in S jeevan or PlasmaOrdered By: David Reyes on 06-26-2023 Chloride [Moles/Vol] 109 mmol/L 98-107 [facility] Complete Blood Count Auto Di ffon 06-26-2023 Basophils (Bld) [#/Vol] 0.0 10*3/uL Normal 0.0-0.2 [facility] Comment on above: Result Comment: PERF ORMED BY: [place] [address] PATHOLOGIST GASOLINE ATTENDANT LYUDMILA GIANG M.D. Performed By: #### L YTES, CREAT, CBC, BUN #### [address] Basophils/100 WBC (Bld) 1.0 % Normal . [facility] Comment on above: Performed By: #### L YTES, CREAT, CBC, BUN #### [address] Eosinophils (Bld) [#/Vol] 0.2 10*3/uL Normal 0.0-0.45 [facility] Comment on above: Performed By: #### L YTES, CREAT, CBC, BUN #### [address] Eosinophils/100 WBC (Bld) 4.3 % Normal . [facility] Comment on above: Performed By: #### L YTES, CREAT, CBC, BUN #### [address] Erythrocyte distribution width (RBC) [Ratio] 15.0 % Normal 11.9-15.3 [facility] Comment on above: Performed By: #### L YTES, CREAT, CBC, BUN #### [address] Hematocrit (Bld) [Volume fraction] 33.0 % Low 34.0-46.4 [facility] Comment on above: Performed By: #### L YTES, CREAT, CBC, BUN #### [address] Hemoglobin (Bld) [Mass/Vol] 11.1 g/dL Low 11.8-15.4 [facility] Comment on above: Performed By: #### L YTES, CREAT, CBC, BUN #### [address] Lymphocytes (Bld) [#/Vol] 0.9 10*3/uL Low 1.00-4.8 [facility] Comment on above: Performed By: #### L YTES, CREAT, CBC, BUN #### [address] Lymphocytes/100 WBC (Bld) 21.8 % Normal . [facility] Comment on above: Performed By: #### L YTES, CREAT, CBC, BUN #### [address] MCH (RBC) [Entitic mass] 29.7 pg Normal 24.7-34.3 [facility] Comment on above: Performed By: #### L YTES, CREAT, CBC, BUN #### [address] MCV (RBC) [Entitic vol] 88.6 fL Normal 80-100 [facility] Comment on above: Performed By: #### L YTES, CREAT, CBC, BUN #### [address] Mean Corpuscular HGB Conc 33.5 g/dL Normal 32.0-35.0 [facility] Comment on above: Performed By: #### L YTES, CREAT, CBC, BUN #### [address] Monocytes (Bld) [#/Vol] 0.4 10*3/uL Normal 0.0-0.8 [facility] Comment on above: Performed By: #### L YTES, CREAT, CBC, BUN #### [address] Monocytes/100 WBC (Bld) 8.2 % Normal . [facility] Comment on above: Performed By: #### L YTES, CREAT, CBC, BUN #### [address] Neutrophils (Bld) [#/Vol] 2.8 10*3/uL Normal 1.8-7.7 [facility] Comment on above: Performed By: #### L YTES, CREAT, CBC, BUN #### [place] [address] [place] Neutrophils/100 WBC (Bld) 64.7 % Normal . [facility] Comment on above: Performed By: #### L YTES, CREAT, CBC, BUN #### [address] NRBC% 0.0 /100{WBC} Normal 0-0.5 [facility] Comment on above: Performed By: #### L YTES, CREAT, CBC, BUN #### [address] Platelet mean volume (Bld) [Entitic vol] 6.5 fL Normal 6.3-10.7 [facility] Comment on above: Performed By: #### L YTES, CREAT, CBC, BUN #### [place] [address] [place] Platelets (Bld) [#/Vol] 306 10*3/uL Normal 150-450 [facility] Comment on above: Performed By: #### L YTES, CREAT, CBC, BUN #### [place] [address] [place] RBC (Bld) [#/Vol] 3.73 10*6/uL Normal 3.60-5.00 [facility] Comment on above: Performed By: #### L YTES, CREAT, CBC, BUN #### [address] WBC (Bld) [#/Vol] 4.3 10*3/uL Normal 3.8-11.6 [facility] Comment on above: Performed By: #### L YTES, CREAT, CBC, BUN #### [facility] [address] Creatinine [Mass/volume] in Serum or PlasmaOrdered By: David Reyes on 06-26-2023 Creatinine [Mass/Vol] 0.74 mg/dL 0.60-1.20 [facility] Eosinophils Auto (Bld) [#/Vo l]Ordered By: David Reyes on 06-26-2023 Eosinophils (Bld) [#/Vol] 0.2 10*3/uL 0.0-0.45 [facility] Eosinophils/100 WBC Auto (Bl d)Ordered By: David Reyes on 06-26-2023 Eosinophils/100 WBC (Bld) 4.3 % . [facility] Erythrocyte distribution wid th Auto (RBC) [Ratio]Ordered By: David Reyes on 06-26-2023 Erythrocyte distribution width (RBC) [Ratio] 15.0 % 11.9-15.3 [facility] Glucose [Mass/volume] in Ser um or PlasmaOrdered By: David Reyes on 06-26-2023 Glucose [Mass/Vol] 91 mg/dL 70-100 [facility] Comment on above: ADA recommended refe rence rangeRandom Glucose Reference Range is dependent on time and content of last meal. Glucose of more than 200 mg/dL in a nonstressed, ambulatory subject supports the diagnosis of Diabetes Mellitus. Hematocrit Auto (Bld) [Volum e fraction]Ordered By: David Reyes on 06-26-2023 Hematocrit (Bld) [Volume fraction] 33.0 % 34.0-46.4 [facility] Hemoglobin [Mass/volume] in BloodOrdered By: David Reyes on 06-26-2023 Hemoglobin (Bld) [Mass/Vol] 11.1 g/dL 11.8-15.4 [facility] Leukocytes [#/volume] correc french for nucleated erythrocytes in Blood by Automated counOrdered By: David Reyes on 06-26-2023 WBC corrected for nucl RBC Auto (Bld) [#/Vol] 4.3 10*3/uL 3.8-11.6 [facility] Lymphocytes Auto (Bld) [#/Vo l]Ordered By: David Reyes on 06-26-2023 Lymphocytes (Bld) [#/Vol] 0.9 10*3/uL 1.00-4.8 [facility] Lymphocytes/100 WBC Auto (Bl d)Ordered By: David Reyes on 06-26-2023 Lymphocytes/100 WBC (Bld) 21.8 % . [facility] MCH Auto (RBC) [Entitic mass ]Ordered By: David Reyes on 06-26-2023 MCH (RBC) [Entitic mass] 29.7 pg 24.7-34.3 [facility] MCHC Auto (RBC) [Mass/Vol]Or dered By: David Reyes on 06-26-2023 MCHC (RBC) [Mass/Vol] 33.5 g/dL 32.0-35.0 [facility] MCV Auto (RBC) [Entitic vol] Ordered By: David Reyes on 06-26-2023 MCV (RBC) [Entitic vol] 88.6 fL 80-100 [facility] Monocytes Auto (Bld) [#/Vol] Ordered By: David Reyes on 06-26-2023 Monocytes (Bld) [#/Vol] 0.4 10*3/uL 0.0-0.8 [facility] Monocytes/100 WBC Auto (Bld) Ordered By: David Reyes on 06-26-2023 Monocytes/100 WBC (Bld) 8.2 % . [facility] Neutrophils Auto (Bld) [#/Vo l]Ordered By: David Reyes on 06-26-2023 Neutrophils (Bld) [#/Vol] 2.8 10*3/uL 1.8-7.7 [facility] Neutrophils/100 WBC Auto (Bl d)Ordered By: David Reyes on 06-26-2023 Neutrophils/100 WBC (Bld) 64.7 % . [facility] No Panel InformationOrdered By: David Reyes on 06-26-2023 Estimated GFR (CKD-EPI) > 60.0 mL/Min [facility] Creatinine Clearance (Chem 57.31 [facility] Nucleated erythrocytes [Pres ence] in Blood by Automated countOrdered By: David Reyes on 06-26-2023 Nucleated RBC Auto Ql (Bld) 0.0 /100{WBC} 0-0.5 [facility] Platelet mean volume Auto (B ld) [Entitic vol]Ordered By: David Reyes on 06-26-2023 Platelet mean volume (Bld) [Entitic vol] 6.5 fL 6.3-10.7 [facility] Platelets Auto (Bld) [#/Vol] Ordered By: David Reyes on 06-26-2023 Platelets (Bld) [#/Vol] 306 10*3/uL 150-450 [facility] Potassium [Moles/volume] in Serum or PlasmaOrdered By: David Reyes on 06-26-2023 Potassium [Moles/Vol] 4.1 mmol/L 3.5-5.1 [facility] RBC Auto (Bld) [#/Vol]Ordere d By: David Reyes on 06-26-2023 RBC (Bld) [#/Vol] 3.73 10*6/uL 3.60-5.00 [facility] Serum or plasma anion gap de terminationOrdered By: David Reyes on 06-26-2023 Anion gap [Moles/Vol] 11.6 mmol/L 6.0-15.0 [facility] Sodium [Moles/volume] in Ser um or PlasmaOrdered By: David Reyes on 06-26-2023 Sodium [Moles/Vol] 141 mmol/L 136-145 [facility] Urea nitrogen [Mass/volume] in Serum or PlasmaOrdered By: David Reyes on 06-26-2023 Urea nitrogen [Mass/Vol] 21 mg/dL 7-25 [facility] WBC Auto (Bld) [#/Vol]Ordere d By: David Reyes on 06-26-2023 WBC (Bld) [#/Vol] 4.3 10*3/uL 3.8-11.6 [facility] XR chest 1V portableon 06-26 XR chest 1V portable [facility] [place] [address] XRay Report Signed Patient: Evan Gill MR#: [id number] 89 : 1955 Acct:[id number] Age/Sex: 67 / F ADM Date: 06/26/23 Loc: OR Room: Type: [facility] Attending Dr: Delfino Vargas MD Copies to: Delfino Vargas MD Ordering Provider: Delfino Vargas MD Date of Service: 06/26/23 XR/XR chest 1V portable: POST PORT PORTABLE AP ERECT CHEST 1440 hours CLINICAL HISTORY: Follow-up after Ubzjiu-g-Lnvh placement COMPARISON: 11/02/[address] 04/05/2023 There is a left subclavian Gaxtle-r-Udfm catheter with tip overlying the distal superior vena cava. The heart is within normal limits. There is no vascular congestion. The lungs, as visualized, are clear. There is no effusion or pneumothorax. The bony structures are osteopenic. There is levoscoliotic curvature and endplate spurring. XR/XR chest 1V portable IMPRESSION: NMMGLF-C-[id number] PLACEMENT, DESCRIBED. NO ACUTE FINDINGS Impression dictated by: Princess Sanchez M.D.06/26/2023 3:02 PM Dictation Location: [place] [address] Transcribed By: [facility] 06/26/23 1502 Dictated By: Princess Sanchez MD 06/26/23 1458 Signed By: 06/26/23 1502 Normal [facility] CNPNon 06-21-2023 CNPN Normal [facility] CNNURSEon 06-20-2023 CNNURSE Normal [facility] CBC W Auto Differential pane l (Bld)on 06-14-2023 Basophils (Bld) [#/Vol] 0.03 10*3/uL Normal <0.11 [facility] Comment on above: Order Comment: Speci men Type: BLOOD SPECIMENOrdering Facility: [facility] Address: [place] [address] Performed By: #### 5 7021-8 ####[facility] LABCLIA [id number] [place] [address] Basophils/100 WBC (Bld) 0.3 % Normal [facility] Comment on above: Order Comment: Speci men Type: BLOOD SPECIMENOrdering Facility: [facility] Address: [address] [place] [address] Performed By: #### 5 7021-8 ####[facility] LABCLIA [id number] [place] [address] Differential cell count method Nom (Bld) Auto Normal [facility] Comment on above: Order Comment: Speci men Type: BLOOD SPECIMENOrdering Facility: [facility] Address: [address] [place] [address] Performed By: #### 5 7021-8 ####[facility] LABCLIA [id number] [place] [address] Eosinophils (Bld) [#/Vol] 0.06 10*3/uL Normal <0.46 [facility] Comment on above: Order Comment: Speci men Type: BLOOD SPECIMENOrdering Facility: [facility] Address: [address] [place] [address] Performed By: #### 5 7021-8 ####[facility] LABCLIA [id number] [place] [address] Eosinophils/100 WBC (Bld) 0.5 % Normal [facility] Comment on above: Order Comment: Speci men Type: BLOOD SPECIMENOrdering Facility: [facility] Address: [address] [place] [address] Performed By: #### 5 7021-8 ####[facility] LABCLIA [id number] [place] [address] Erythrocyte distribution width (RBC) [Ratio] 15.1 % High 11.5-15.0 [facility] Comment on above: Order Comment: Speci men Type: BLOOD SPECIMENOrdering Facility: [facility] Address: [address] [place] [address] Performed By: #### 5 7021-8 ####[facility] LABCLIA [id number] [place] [address] Hematocrit (Bld) [Volume fraction] 32.5 % Low 36.0-46.0 [facility] Comment on above: Order Comment: Speci men Type: BLOOD SPECIMENOrdering Facility: [facility] Address: [address] [place] [address] Performed By: #### 5 7021-8 ####[facility] LABCLIA [id number] [place] [address] Hemoglobin (Bld) [Mass/Vol] 10.5 g/dL Low 11.5-15.5 [facility] Comment on above: Order Comment: Speci men Type: BLOOD SPECIMENOrdering Facility: [facility] Address: [address] [place] [address] Performed By: #### 5 7021-8 ####[facility] LABCLIA [id number] [place] [address] Immature granulocytes (Bld) [#/Vol] 0.05 10*3/uL Normal <0.10 [facility] Comment on above: Order Comment: Speci men Type: BLOOD SPECIMENOrdering Facility: [facility] Address: [address] [place] [address] Performed By: #### 5 7021-8 ####[facility] LABCLIA [id number] [place] [address] Immature granulocytes/100 WBC (Bld) 0.5 % Normal [facility] Comment on above: Order Comment: Speci men Type: BLOOD SPECIMENOrdering Facility: [facility] Address: [address] [place] [address] Performed By: #### 5 7021-8 ####[facility] LABCLIA [id number] [place] [address] Lymphocytes (Bld) [#/Vol] 1.51 10*3/uL Normal 1.00-4.00 [facility] Comment on above: Order Comment: Speci men Type: BLOOD SPECIMENOrdering Facility: [facility] Address: [address] [place] [address] Performed By: #### 5 7021-8 ####[facility] LABCLIA [id number] [place] [address] Lymphocytes/100 WBC (Bld) 13.7 % Normal [facility] Comment on above: Order Comment: Speci men Type: BLOOD SPECIMENOrdering Facility: [facility] Address: [address] [place] [address] Performed By: #### 5 7021-8 ####[facility] LABCLIA [id number] [place] [address] MCH (RBC) [Entitic mass] 28.8 pg Normal 26.0-34.0 [facility] Comment on above: Order Comment: Speci men Type: BLOOD SPECIMENOrdering Facility: [facility] Address: [address] [place] [address] Performed By: #### 5 7021-8 ####[facility] LABCLIA [id number] [place] [address] MCHC (RBC) [Mass/Vol] 32.3 g/dL Normal 30.5-36.0 [facility] Comment on above: Order Comment: Speci men Type: BLOOD SPECIMENOrdering Facility: [facility] Address: [address] [place] [address] Performed By: #### 5 7021-8 ####[facility] LABCLIA [id number] [place] [address] MCV (RBC) [Entitic vol] 89.3 fL Normal 80.0-100.0 [facility] Comment on above: Order Comment: Speci men Type: BLOOD SPECIMENOrdering Facility: [facility] Address: [address] [place] [address] Performed By: #### 5 7021-8 ####[facility] LABCLIA [id number] [place] [address] Monocytes (Bld) [#/Vol] 0.97 10*3/uL High <0.87 [facility] Comment on above: Order Comment: Speci men Type: BLOOD SPECIMENOrdering Facility: [facility] Address: [address] [place] [address] Performed By: #### 5 7021-8 ####[facility] LABCLIA [id number] [place] [address] Monocytes/100 WBC (Bld) 8.8 % Normal [facility] Comment on above: Order Comment: Speci men Type: BLOOD SPECIMENOrdering Facility: [facility] Address: [address] [place] [address] Performed By: #### 5 7021-8 ####[facility] LABCLIA [id number] [place] [address] Neutrophils (Bld) [#/Vol] 8.39 10*3/uL High 1.45-7.50 [facility] Comment on above: Order Comment: Speci men Type: BLOOD SPECIMENOrdering Facility: [facility] Address: [address] [place] [address] Performed By: #### 5 7021-8 ####[facility] LABCLIA [id number] [place] [address] Neutrophils/100 WBC (Bld) 76.2 % Normal [facility] Comment on above: Order Comment: Speci men Type: BLOOD SPECIMENOrdering Facility: [facility] Address: [address] [place] [address] Performed By: #### 5 7021-8 ####[facility] LABCLIA [id number] [place] [address] Nucleated RBC (Bld) [#/Vol] 10*3/uL Normal <0.01 [facility] Comment on above: Order Comment: Speci men Type: BLOOD SPECIMENOrdering Facility: [facility] Address: [address] [place] [address] Performed By: #### 5 7021-8 ####[facility] LABCLIA [id number] [place] [address] Nucleated RBC/100 WBC (Bld) [Ratio] 0.0 /100 WBC Normal [facility] Comment on above: Order Comment: Speci men Type: BLOOD SPECIMENOrdering Facility: [facility] Address: [address] [place] [address] Performed By: #### 5 7021-8 ####[facility] LABCLIA [id number] [place] [address] Platelet mean volume (Bld) [Entitic vol] 8.4 fL Low 9.0-12.7 [facility] Comment on above: Order Comment: Speci men Type: BLOOD SPECIMENOrdering Facility: [facility] Address: [address] [place] [address] Performed By: #### 5 7021-8 ####[facility] LABCLIA [id number] [place] [address] Platelets (Bld) [#/Vol] 300 10*3/uL Normal 150-400 [facility] Comment on above: Order Comment: Speci men Type: BLOOD SPECIMENOrdering Facility: [facility] Address: [address] [place] [address] Performed By: #### 5 7021-8 ####[facility] LABCLIA [id number] [place] [address] RBC (Bld) [#/Vol] 3.64 10*6/uL Low 3.90-5.20 [facility] Comment on above: Order Comment: Speci men Type: BLOOD SPECIMENOrdering Facility: [facility] Address: [address] [place] [address] Performed By: #### 5 7021-8 ####[facility] LABCLIA [id number] [place] [address] WBC (Bld) [#/Vol] 11.01 10*3/uL High 3.70-11.00 [facility] Comment on above: Order Comment: Speci men Type: BLOOD SPECIMENOrdering Facility: [facility] Address: [address] [place] [address] Performed By: #### 5 7021-8 ####[facility] LABCLIA [id number] [place] [address] CEA SerPl-mCncon 06-14-2023 Carcinoembryonic Ag [Mass/Vol] 3.1 ng/mL High <=2.9 [facility] Comment on above: Order Comment: Speci men Type: BLOOD SPECIMENOrdering Facility: [facility] Address: [address] [place] [address] Result Comment: Carc inoembryonic antigen test is used as an aid in monitoring response to treatment or recurrence in patients with established colorectal, breast, lung, prostatic, pancreatic, and ovarian carcinomas. Clinical correlation is required.The Carcinoembryonic antigen test was performed using the [employer] DXI paramagnetic particle chemiluminescent immunoassay method. Results obtained with different assay methods or kits cannot be used interchangeably. Performed By: #### 2 039-6 ####[facility] LABCLIA [id number] [place] [address] [place] CNOVSPon 06-14-2023 CNOVSP Normal [facility] CNPNon 06-14-2023 CNPN Normal [facility] Comprehensive metabolic 2000 panelon 06-14-2023 Albumin [Mass/Vol] 4.2 g/dL Normal 3.9-4.9 [facility] Comment on above: Order Comment: Speci men Type: BLOOD SPECIMENOrdering Facility: [facility] Address: [address] [place] [address] Performed By: #### 2 4323-8 ####[facility] LABCLIA [id number] [place] [address] ALP [Catalytic activity/Vol] 67 U/L Normal 34-123 [facility] Comment on above: Order Comment: Speci men Type: BLOOD SPECIMENOrdering Facility: [facility] Address: [address] [place] [address] Performed By: #### 2 4323-8 ####[facility] LABCLIA [id number] [place] [address] ALT [Catalytic activity/Vol] 16 U/L Normal 7-38 [facility] Comment on above: Order Comment: Speci men Type: BLOOD SPECIMENOrdering Facility: [facility] Address: [address] [place] [address] Performed By: #### 2 4323-8 ####[facility] LABCLIA [id number] [place] [address] Anion gap [Moles/Vol] 9 mmol/L Normal 9-18 [facility] Comment on above: Order Comment: Speci men Type: BLOOD SPECIMENOrdering Facility: [facility] Address: [address] [place] [address] Performed By: #### 2 4323-8 ####[facility] LABCLIA [id number] [place] [address] AST [Catalytic activity/Vol] 15 U/L Normal 13-35 [facility] Comment on above: Order Comment: Speci men Type: BLOOD SPECIMENOrdering Facility: [facility] Address: [address] [place] [address] Performed By: #### 2 4323-8 ####[facility] LABCLIA [id number] [place] [address] Bilirubin [Mass/Vol] 0.2 mg/dL Normal 0.2-1.3 [facility] Comment on above: Order Comment: Speci men Type: BLOOD SPECIMENOrdering Facility: [facility] Address: [address] [place] [address] Performed By: #### 2 4323-8 ####[facility] LABCLIA [id number] [place] [address] Calcium [Mass/Vol] 9.1 mg/dL Normal 8.5-10.2 [facility] Comment on above: Order Comment: Speci men Type: BLOOD SPECIMENOrdering Facility: [facility] Address: [address] [place] [address] Performed By: #### 2 4323-8 ####[facility] LABCLIA [id number] [place] [address] Chloride [Moles/Vol] 108 mmol/L High 97-105 [facility] Comment on above: Order Comment: Speci men Type: BLOOD SPECIMENOrdering Facility: [facility] Address: [address] [place] [address] Performed By: #### 2 4323-8 ####[facility] LABCLIA [id number] [place] [address] CO2 [Moles/Vol] 25 mmol/L Normal 22-30 [facility] Comment on above: Order Comment: Speci men Type: BLOOD SPECIMENOrdering Facility: [facility] Address: [address] [place] [address] Performed By: #### 2 4323-8 ####[facility] LABCLIA [id number] [place] [address] Creatinine [Mass/Vol] 0.71 mg/dL Normal 0.58-0.96 [facility] Comment on above: Order Comment: Speci men Type: BLOOD SPECIMENOrdering Facility: [facility] Address: [address] [place] [address] Performed By: #### 2 4323-8 ####[facility] LABCLIA [id number] [place] [address] Creatinine and Glomerular filtration rate.predicted panel (S/P/Bld) 92 mL/min/1.73m??? Normal >=60 [facility] Comment on above: Order Comment: Speci men Type: BLOOD SPECIMENOrdering Facility: [facility] Address: [address] [place] [address] Result Comment: Farhana mated Glomerular Filtration Rate (eGFR) is calculated using the 2020 CKD-EPI creatinine equation. This equation utilizes serum creatinine, sex, and age as parameters. The creatinine assay has traceable calibration to isotope dilution-mass spectrometry. Refer to KDIGO guidelines for clinical interpretation. In patients with unstable renal function, e.g. those with acute kidney injury, the eGFR may not accurately reflect actual GFR. Performed By: #### 2 4323-8 ####[facility] LABCLIA [id number] [place] [address] Glucose [Mass/Vol] 118 mg/dL High 74-99 [facility] Comment on above: Order Comment: Speci men Type: BLOOD SPECIMENOrdering Facility: [facility] Address: [address] [place] [address] Result Comment: The [place] Diabetes [employer] (ADA) provides guidance for cutoff values for fasting glucose and random glucose. The ADA defines fasting as no caloric intake for at least 8 hours. Fasting plasma glucose results between 100 to 125 mg/dL indicate increased risk for diabetes (prediabetes).Fasting plasma glucose results greater than or equal to 126 mg/dL meet the criteria for diagnosis of diabetes. In the absence of unequivocal hyperglycemia, results should be confirmed by repeat testing. In a patient with classic symptoms of hyperglycemia or hyperglycemic crisis, random plasma glucose results greater than or equal to 200 mg/dL meet the criteria for diagnosis of diabetes.Reference: Standards of Medical Care in Diabetes 2016, [place] [employer]. Diabetes Care. 2016.39(Suppl 1). Performed By: #### 2 4323-8 ####[facility] LABCLIA [id number] [place] [address] Potassium [Moles/Vol] 4.4 mmol/L Normal 3.7-5.1 [facility] Comment on above: Order Comment: Speci men Type: BLOOD SPECIMENOrdering Facility: [facility] Address: [address] [place] [address] Performed By: #### 2 4323-8 ####[facility] LABCLIA [id number] [place] [address] Protein [Mass/Vol] 6.6 g/dL Normal 6.3-8.0 [facility] Comment on above: Order Comment: Speci men Type: BLOOD SPECIMENOrdering Facility: [facility] Address: [address] [place] [address] Performed By: #### 2 4323-8 ####[facility] LABCLIA [id number] [place] [address] Sodium [Moles/Vol] 142 mmol/L Normal 136-144 [facility] Comment on above: Order Comment: Speci men Type: BLOOD SPECIMENOrdering Facility: [facility] Address: [address] [place] [id number] Performed By: #### 2 4323-8 ####[facility] LABCLIA [id number] [place] [address] Urea nitrogen [Mass/Vol] 23 mg/dL High 7-21 [facility] Comment on above: Order Comment: Speci men Type: BLOOD SPECIMENOrdering Facility: [facility] Address: [address] [place] [address] Performed By: #### 2 4323-8 ####[facility] LABCLIA [id number] [place] [address] MRI RECTUM WO/W IVCONon 12-0 MRI RECTUM WO/W IVCON [facility] ANES POSTPROC EVALon 023 ANES POSTPROC EVAL HNO ID: [id number] Author: David Carpenter MD Service: Anesthesiology Author Type: Physician Type: Anesthesia Postprocedure Evaluation Filed: 06/08/2023 1:49 PM Note Text: POST ANESTHESIA EVALUATION NOTE : 1955 Procedure Summary Date: 06/08/23 Room / Location: Procedures Anesthesia Start: 1251 Anesthesia Stop: 1306 Procedure: SIGMOIDOSCOPY Diagnosis: Rectal cancer (HCC) (Follow-up of rectal cancer) Scheduled Providers: Laisha Singer MD; David Carpenter MD; Prachi Lozano AA; Brunilda Fontanez RN Responsible Provider: David Carpenter MD Anesthesia Type: MAC ASA Status: 2 Anesthesia Type: MAC Last Vitals Vitals Value Taken Time BP 111/63 06/08/23 1330 Temp 36.2 ?C (97.2 ?F) 06/08/23 1311 HR SpO2 65 06/08/23 1330 Resp 17 06/08/23 1330 SpO2 100 % 06/08/23 1330 Post Anesthesia Patient Status Patient Evaluation: PACU. PACU/ICU Patient Condition: stable. Anticipated Disposition: phase 2 then home. Neurological Status: aware and responsive. Pulmonary Status: breathing comfortably on room air Airway Control: returned to baseline unsupported. Cardiovascular Status: stable. Pain Management: satisfactory to patient Postoperative Hydration: acceptable. Intraoperative Events: no significant anesthesia events Recommendation: continue current plan of care. Anesthesia Observations No Documentation SIGNATURE: David Carpenter MD PATIENT NAME: Evan Gill DATE: June 08, 2023 TIME: 1:48 PM CSN: [id number] [facility] ANES PRE-OPon 06-08-2023 ANES PRE-OP HNO ID: [id number] Author: David Carpenter MD Service: Anesthesiology Author Type: Physician Type: Anesthesia Preprocedure Evaluation Filed: 06/08/2023 12:43 PM Note Text: ANESTHESIOLOGY DAY OF SURGERY NOTE : 1955 Procedure Information Date/Time: 06/08/23 1300 Scheduled providers: Laisha Singer MD; David Carpenter MD; Prachi Lozano AA; Brunilda Fontanez RN Procedure: SIGMOIDOSCOPY Location: Procedures Estimated body mass index is 23.68 kg/m? as calculated from the following: Height as of 04/28/23: 162.6 cm (5' 4.02 ). Weight as of this encounter: 62.6 kg (138 lb). Most recent hematocrit and potassium results: Hematocrit 33.1 04/28/2023 Potassium 4.3 04/28/2023 Relevant Problems NEURO-PSYCH (+) Personal history of malignant melanoma of skin I - PHYSICAL EVALUATION AIRWAY Patient intubated: No. Tracheostomy tube not present Mallampati: II. TM distance: >3 FB. Neck ROM: full. Mouth opening: adequate. Short neck: no. Thick neck: no Meehan present: no DENTAL Normal dental observations. Dental findings: teeth intact. Additional exam findings: no II - ANESTHESIA PLAN ASA Score: 2 Anesthetic Plan: MAC NPO Status: adequate Beta Tanya Monitoring Plan Monitoring plan: Standard ASA. Post Procedure Analgesic Plan Postoperative analgesic plan: parenteral or oral opioids. Informed Consent Anesthetic risks, benefits, alternatives, personnel and consent discussed: yes. Patient / Responsible Democrat agrees to proceed: yes Patient / Surrogate agrees to blood products: blood products not planned Significant changes in the patient condition since the History and Physical, not otherwise documented in primary service progress note: no. Potential Anesthesia issues that may suggest increased risk of complications or contraindication to planned procedure: none. Vitals Value Taken Time BP 119/74 06/08/23 1240 Pulse 80 06/08/23 1240 Resp 16 06/08/23 1240 Temp 36.5 ?C (97.7 ?F) 06/08/23 1240 SpO2 100 % 06/08/23 1240 Outpatient Medications as of 06/08/2023 Medication Sig - phenazopyridine (PYRIDIUM) 100 mg tablet Take 2 tablets by mouth three times a day as needed. - omeprazole (PRILOSEC) 40 mg capsule Take 40 mg by mouth once daily. - vitamin D3/vitamin K2, MK4, (K2 PLUS D3 ORAL) Take 1 Dose by mouth once daily. - compounded progesterone 50 mg capsule Take 150 mg by mouth daily at bedtime. - Testosterone 12.5 mg/ 1.25 gram (1 %) glpm Apply 2 Pump as directed once daily. 0.5 MIL - MEDICATION, NON-DATABASE Take 1 Each by mouth once daily. Metabolic Maintenance DIM Complete - 100mg Diindolylmethane Supplement with Vitamin E, B12 + Active Folate - MEDICATION, NON-DATABASE Take 1 Each by mouth once daily. [employer] supplies guzman mitochondrial micronutrients and a smart combination of alpha lipoic acid, N-acetyl cysteine, and acetyl L-carnitine - ondansetron orally disintegrating (ZOFRAN ODT) 8 mg disintegrating tablet Take 1 tablet by mouth every 8 hours as needed for nausea/vomiting. - prochlorperazine (COMPAZINE) 10 mg tablet Take 1 tablet by mouth every 6 hours as needed. - ondansetron (ZOFRAN) 8 mg tablet Take 1 tablet by mouth every 8 hours as needed for nausea/vomiting. - polyethylene glycol 3350 (MIRALAX) 17 gram/dose powder Take by mouth once daily. Dissolve dose in 4 - 8 ounces of liquid and take as directed. - vortioxetine (TRINTELLIX) 10 mg tablet Take 10 mg by mouth once daily. - oxybutynin ER (DITROPAN XL) 15 mg 24 hr Extended Rel Tab Take 15 mg by mouth. - amLODIPine-benazepril (LOTREL) 5-10 mg per capsule Take 1 capsule by mouth every morning. - meloxicam (MOBIC) 15 mg tablet Take 1 tablet by mouth every afternoon. - Magnesium 250 mg tab Take 500 mg by mouth. - potassium citrate 99 mg cap Take 1 tablet by mouth every morning. - aspirin, enteric coated (ASPIRIN, ENTERIC COATED) 81 mg EC tablet Take 81 mg by mouth once daily. - Lactobacillus acidophilus (PROBIOTIC ORAL) Take by mouth. - docosahexaenoic acid/epa (FISH OIL ORAL) Take by mouth. - calcium carbonate/vitamin d3(CALCIUM 600 WITH VITAMIN D3 600 MG (1,500 MG)-400 UNIT CAP) Take one(1) tablet three times daily. Facility-Administered Medications as of 06/08/2023 Medication Dose Route Frequency - lidocaine (PF) 10 mg/mL (1 %) 1-2 mg injection (XYLOCAINE) 0.1-0.2 mL INTRADERMAL PRN - NaCl 0.9% iv infusion 30 mL/hr INTRAVENOUS CONTINUOUS I have interviewed and examined the patient. I have reviewed the medical record and/or the pre-anesthesia evaluation, pertinent labs, and test results. This contains updated information obtained within 48 hours of Surgery/Procedure. SIGNATURE: David Carpenter MD PATIENT NAME: Evan Gill DATE: June 08, 2023 TIME: 12:43 PM CSN: [id number] [facility] CNPNon 06-08-2023 [facility] Flexible Sigmoidoscopyon Flexible sigmoidoscopy [facility] Gastrointestinal Endoscopy Patient Name: Evan Gill Procedure Date: 06/08/2023 12:46 PM Date of : 1955 Admit Type: Outpatient Age: 67 Room: [place] [address] Gender: Female Note Status: Finalized Attending MD: Laisha Singer MD Procedure: Flexible Sigmoidoscopy Indications: Follow-up of rectal cancer Providers: Laisha Singer MD Patient Profile: Last Colonoscopy: 2022. Referring Physician: Medicines: Monitored Anesthesia Care Complications: No immediate complications. Estimated blood loss: None. Requesting Provider: Procedure: Pre-Anesthesia Assessment: - Prior to the procedure, a History and Physical was performed, and patient medications and allergies were reviewed. The patient's tolerance of previous anesthesia was also reviewed. The risks and benefits of the procedure and the sedation options and risks were discussed with the patient. All questions were answered, and informed consent was obtained. Prior Anticoagulants: The patient has taken no anticoagulant or antiplatelet agents. ASA Grade Assessment: II - A patient with mild systemic disease. After reviewing the risks and benefits, the patient was deemed in satisfactory condition to undergo the procedure. After obtaining informed consent, the scope was passed under direct vision. The Colonoscope was introduced through the anus and advanced to the sigmoid colon. The flexible sigmoidoscopy was accomplished without difficulty. The patient tolerated the procedure well. The quality of the bowel preparation was good. Moderate Sedation: MAC anesthesia was administered by the anesthesia team. Total Procedure Duration: 0 hours 5 minutes 43 seconds Findings: The digital rectal exam revealed a 3 cm (diameter) firm, flat rectal mass palpated 4 to 7 cm from the anal verge. The mass was non-circumferential and located predominantly at the anterior bowel wall. Mild associated stenosis. An infiltrative non-obstructing large, flat mass was found in the distal and mid rectum. The mass was partially circumferential (involving two-thirds of the lumen circumference). The mass measured six cm in length. In addition, its diameter measured thirty mm. No bleeding was present. The distal extent of the mass was just beyond the distal rectal valve in the anterior location. Associated discreet 5 mm polyp at proximal extent of mass. Positive response of tumor to treatment received thus far. Non-bleeding internal hemorrhoids were found during endoscopy. The hemorrhoids were mild. Estimated blood loss: none. The exam was otherwise without abnormality. Impression: - Rectal mass 4 to 7 cm from the anal verge. - Malignant tumor in the mid rectum, improved from prior. - Non-bleeding internal hemorrhoids. - The examination was otherwise normal. - No specimens collected. Recommendation: - Discharge patient to home. - Continue present medications. Procedure Code(s): --- Professional --- 14125, Sigmoidoscopy, flexible; diagnostic, including collection of specimen(s) by brushing or washing, when performed (separate procedure) Diagnosis Code(s): --- Professional --- K62.89, Other specified diseases of anus and rectum C20, Malignant neoplasm of rectum K64.8, Other hemorrhoids CPT copyright 2021 [employer]. All rights reserved. The codes documented in this report are preliminary and upon raw cheese worker review may be revised to meet current compliance requirements. Attending Participation: I personally performed the entire procedure. Scope In: 12:58:00 PM Scope Out: 1:03:43 PM MD Laisha Quinteros MD 06/08/2023 1:11:49 PM This report has been signed electronically by Laisha Singer MD Number of Addenda: 0 Note Initiated On: 06/08/2023 12:46 PM Estimated Blood Loss: Estimated blood loss: none. Normal [facility] HISTORY PHYSICALon 3 HISTORY PHYSICAL HNO ID: [id number] Author: Laisha Singer MD Service: Colorectal Author Type: Physician Type: HANDP Filed: 06/08/2023 12:40 PM Note Text: UPDATED HISTORY AND PHYSICAL EXAMINATION SERVICE DATE: 06/08/2023 SERVICE TIME: 12:39 PM PHYSICAL EXAM MUST BE COMPLETED ON ADMISSION The History and Physical (completed in the past 30 days) has been reviewed and the patient has been examined. The contents accurately reflect the patient's condition with the following additions or revisions since the HANDP was completed. CV: RRR Pulm: no increased respiratory effort Examination indicates no changes. This HANDP can be found in the Electronic Medical Record dated today. SIGNATURE: Laisha Singer MD PATIENT NAME: Evan Gill DATE: June 08, 2023 TIME: 12:39 PM Normal [facility] SIGMOIDOSCOPYon 06-08-2023 [facility] CNOVon 05-29-2023 CNOV Normal [facility] CNOVon 05-08-2023 CNOV Normal [facility] Bacteria Ur Culton 3 Bacteria identified Cx Nom (U) ORGANISM ID: 1 <10,000 CFU/ml Normal urogenital jonathan Normal [facility] Comment on above: Performed By: #### 6 30-4 ####[facility] LABCLIA [id number] [address] [place] CNOVon 05-01-2023 CNOV Normal [facility] CBC W Auto Differential pane l (Bld)on 04-28-2023 Basophils (Bld) [#/Vol] 0.04 10*3/uL Normal <0.11 [facility] Comment on above: Order Comment: Speci men Type: BLOOD SPECIMENOrdering Facility: [facility] Address: [address] [place] [address] Performed By: #### 5 7021-8 ####[facility] LABCLIA [id number] [place] [address] Basophils/100 WBC (Bld) 0.8 % Normal [facility] Comment on above: Order Comment: Speci men Type: BLOOD SPECIMENOrdering Facility: [facility] Address: [address] [place] [address] Performed By: #### 5 7021-8 ####[facility] LABCLIA [id number] [place] [address] Differential cell count method Nom (Bld) Auto Normal [facility] Comment on above: Order Comment: Speci men Type: BLOOD SPECIMENOrdering Facility: [facility] Address: [address] [place] [address] Performed By: #### 5 7021-8 ####[facility] LABCLIA [id number] [place] [address] Eosinophils (Bld) [#/Vol] 0.42 10*3/uL Normal <0.46 [facility] Comment on above: Order Comment: Speci men Type: BLOOD SPECIMENOrdering Facility: [facility] Address: [address] [place] [address] Performed By: #### 5 7021-8 ####[facility] LABCLIA [id number] [place] [address] Eosinophils/100 WBC (Bld) 8.7 % Normal [facility] Comment on above: Order Comment: Speci men Type: BLOOD SPECIMENOrdering Facility: [facility] Address: [address] [place] [address] Performed By: #### 5 7021-8 ####[facility] LABCLIA [id number] [place] [address] Erythrocyte distribution width (RBC) [Ratio] 17.1 % High 11.5-15.0 [facility] Comment on above: Order Comment: Speci men Type: BLOOD SPECIMENOrdering Facility: [facility] Address: [address] [place] [address] Performed By: #### 5 7021-8 ####[facility] LABCLIA [id number] [place] [address] Hematocrit (Bld) [Volume fraction] 33.1 % Low 36.0-46.0 [facility] Comment on above: Order Comment: Speci men Type: BLOOD SPECIMENOrdering Facility: [facility] Address: [address] [place] [address] Performed By: #### 5 7021-8 ####[facility] LABIA [id number] [place] [address] Hemoglobin (Bld) [Mass/Vol] 10.7 g/dL Low 11.5-15.5 [facility] Comment on above: Order Comment: Speci men Type: BLOOD SPECIMENOrdering Facility: [facility] Address: [address] [place] [address] Performed By: #### 5 7021-8 ####[facility] LABCLIA [id number] [place] [address] Immature granulocytes (Bld) [#/Vol] 10*3/uL Normal <0.10 [facility] Comment on above: Order Comment: Speci men Type: BLOOD SPECIMENOrdering Facility: [facility] Address: [address] [place] [address] Performed By: #### 5 7021-8 ####[facility] LABIA [id number] [place] [address] Immature granulocytes/100 WBC (Bld) 0.4 % Normal [facility] Comment on above: Order Comment: Speci men Type: BLOOD SPECIMENOrdering Facility: [facility] Address: [address] [place] [address] Performed By: #### 5 7021-8 ####[facility] LABCLIA [id number] [place] [address] Lymphocytes (Bld) [#/Vol] 0.73 10*3/uL Low 1.00-4.00 [facility] Comment on above: Order Comment: Speci men Type: BLOOD SPECIMENOrdering Facility: [facility] Address: [address] [place] [address] Performed By: #### 5 7021-8 ####[facility] LABCLIA [id number] [place] [address] Lymphocytes/100 WBC (Bld) 15.1 % Normal [facility] Comment on above: Order Comment: Speci men Type: BLOOD SPECIMENOrdering Facility: [facility] Address: [address] [place] [address] Performed By: #### 5 7021-8 ####[facility] LABCLIA [id number] [place] [address] MCH (RBC) [Entitic mass] 28.1 pg Normal 26.0-34.0 [facility] Comment on above: Order Comment: Speci men Type: BLOOD SPECIMENOrdering Facility: [facility] Address: [address] [place] [address] Performed By: #### 5 7021-8 ####[facility] LABCLIA [id number] [place] [address] MCHC (RBC) [Mass/Vol] 32.3 g/dL Normal 30.5-36.0 [facility] Comment on above: Order Comment: Speci men Type: BLOOD SPECIMENOrdering Facility: [facility] Address: [address] [place] [address] Performed By: #### 5 7021-8 ####[facility] LABCLIA [id number] [place] [address] MCV (RBC) [Entitic vol] 86.9 fL Normal 80.0-100.0 [facility] Comment on above: Order Comment: Speci men Type: BLOOD SPECIMENOrdering Facility: [facility] Address: [address] [place] [address] Performed By: #### 5 7021-8 ####[facility] LABCLIA [id number] [place] [address] Monocytes (Bld) [#/Vol] 0.48 10*3/uL Normal <0.87 [facility] Comment on above: Order Comment: Speci men Type: BLOOD SPECIMENOrdering Facility: [facility] Address: [address] [place] [address] Performed By: #### 5 7021-8 ####[facility] LABCLIA [id number] [place] [address] Monocytes/100 WBC (Bld) 9.9 % Normal [facility] Comment on above: Order Comment: Speci men Type: BLOOD SPECIMENOrdering Facility: [facility] Address: [address] [place] [address] Performed By: #### 5 7021-8 ####[facility] LABCLIA [id number] [place] [address] Neutrophils (Bld) [#/Vol] 3.16 10*3/uL Normal 1.45-7.50 [facility] Comment on above: Order Comment: Speci men Type: BLOOD SPECIMENOrdering Facility: [facility] Address: [address] [place] [address] Performed By: #### 5 7021-8 ####[facility] LABCLIA [id number] [place] [address] Neutrophils/100 WBC (Bld) 65.1 % Normal [facility] Comment on above: Order Comment: Speci men Type: BLOOD SPECIMENOrdering Facility: [facility] Address: [address] [place] [address] Performed By: #### 5 7021-8 ####[facility] LABCLIA [id number] [place] [address] Nucleated RBC (Bld) [#/Vol] 10*3/uL Normal <0.01 [facility] Comment on above: Order Comment: Speci men Type: BLOOD SPECIMENOrdering Facility: [facility] Address: [address] [place] [address] Performed By: #### 5 7021-8 ####[facility] LABCLIA [id number] [place] [address] Nucleated RBC/100 WBC (Bld) [Ratio] 0.0 /100 WBC Normal [facility] Comment on above: Order Comment: Speci men Type: BLOOD SPECIMENOrdering Facility: [facility] Address: [address] [place] [address] Performed By: #### 5 7021-8 ####[facility] LABIA [id number] [place] [address] Platelet mean volume (Bld) [Entitic vol] 7.9 fL Low 9.0-12.7 [facility] Comment on above: Order Comment: Speci men Type: BLOOD SPECIMENOrdering Facility: [facility] Address: [address] [place] [address] Performed By: #### 5 7021-8 ####[facility] LABCLIA [id number] [place] [address] Platelets (Bld) [#/Vol] 234 10*3/uL Normal 150-400 [facility] Comment on above: Order Comment: Speci men Type: BLOOD SPECIMENOrdering Facility: [facility] Address: [address] [place] [address] Performed By: #### 5 7021-8 ####[facility] LABIA [id number] [place] [address] RBC (Bld) [#/Vol] 3.81 10*6/uL Low 3.90-5.20 [facility] Comment on above: Order Comment: Speci men Type: BLOOD SPECIMENOrdering Facility: [facility] Address: [address] [place] [address] Performed By: #### 5 7021-8 ####[facility] LABCLIA [id number] [place] [address] WBC (Bld) [#/Vol] 4.85 10*3/uL Normal 3.70-11.00 [facility] Comment on above: Order Comment: Speci men Type: BLOOD SPECIMENOrdering Facility: [facility] Address: [address] [place] [address] Performed By: #### 5 7021-8 ####[facility] LABCLIA [id number] [place] [address] CNOVSPon 04-28-2023 CNOVSP Normal [facility] metabolic 2000 panelon 04-28-2023 Albumin [Mass/Vol] 4.1 g/dL Normal 3.9-4.9 [facility] Comment on above: Order Comment: Speci men Type: BLOOD SPECIMENOrdering Facility: [facility] Address: [address] [place] [address] Performed By: #### 2 4323-8 ####[facility] LABIA [id number] [place] [address] ALP [Catalytic activity/Vol] 53 U/L Normal 34-123 [facility] Comment on above: Order Comment: Speci men Type: BLOOD SPECIMENOrdering Facility: [facility] Address: [address] [place] [address] Performed By: #### 2 4323-8 ####[facility] LABCLIA [id number] [place] [address] ALT [Catalytic activity/Vol] 11 U/L Normal 7-38 [facility] Comment on above: Order Comment: Speci men Type: BLOOD SPECIMENOrdering Facility: [facility] Address: [address] [place] [address] Performed By: #### 2 4323-8 ####[facility] LABCLIA [id number] [place] [address] Anion gap [Moles/Vol] 8 mmol/L Low 9-18 [facility] Comment on above: Order Comment: Speci men Type: BLOOD SPECIMENOrdering Facility: [facility] Address: [address] [place] [address] Performed By: #### 2 4323-8 ####[facility] LABCLIA [id number] [place] [address] AST [Catalytic activity/Vol] 12 U/L Low 13-35 [facility] Comment on above: Order Comment: Speci men Type: BLOOD SPECIMENOrdering Facility: [facility] Address: [address] [place] [address] Performed By: #### 2 4323-8 ####[facility] LABCLIA [id number] [place] [address] Bilirubin [Mass/Vol] 0.3 mg/dL Normal 0.2-1.3 [facility] Comment on above: Order Comment: Speci men Type: BLOOD SPECIMENOrdering Facility: [facility] Address: [address] [place] [address] Performed By: #### 2 4323-8 ####[facility] LABCLIA [id number] [place] [address] Calcium [Mass/Vol] 8.6 mg/dL Normal 8.5-10.2 [facility] Comment on above: Order Comment: Speci men Type: BLOOD SPECIMENOrdering Facility: [facility] Address: [address] [place] [address] Performed By: #### 2 4323-8 ####[facility] LABCLIA [id number] [place] [address] Chloride [Moles/Vol] 106 mmol/L High 97-105 [facility] Comment on above: Order Comment: Speci men Type: BLOOD SPECIMENOrdering Facility: [facility] Address: [address] [place] [address] Performed By: #### 2 4323-8 ####[facility] LABCLIA [id number] [place] [address] CO2 [Moles/Vol] 26 mmol/L Normal 22-30 [facility] Comment on above: Order Comment: Speci men Type: BLOOD SPECIMENOrdering Facility: [facility] Address: [address] [place] [address] Performed By: #### 2 4323-8 ####[facility] LABCLIA [id number] [place] [address] Creatinine [Mass/Vol] 0.68 mg/dL Normal 0.58-0.96 [facility] Comment on above: Order Comment: Speci men Type: BLOOD SPECIMENOrdering Facility: [facility] Address: [address] [place] [address] Performed By: #### 2 4323-8 ####[facility] LABCLIA [id number] [place] [address] Creatinine and Glomerular filtration rate.predicted panel (S/P/Bld) 94 mL/min/1.73m??? Normal >=60 [facility] Comment on above: Order Comment: Speci men Type: BLOOD SPECIMENOrdering Facility: [facility] Address: [address] [place] [address] Result Comment: Farhana mated Glomerular Filtration Rate (eGFR) is calculated using the 2020 CKD-EPI creatinine equation. This equation utilizes serum creatinine, sex, and age as parameters. The creatinine assay has traceable calibration to isotope dilution-mass spectrometry. Refer to KDIGO guidelines for clinical interpretation. In patients with unstable renal function, e.g. those with acute kidney injury, the eGFR may not accurately reflect actual GFR. Performed By: #### 2 4323-8 ####[facility] LABCLIA [id number] [place] [address] Glucose [Mass/Vol] 107 mg/dL High 74-99 [facility] Comment on above: Order Comment: Speci men Type: BLOOD SPECIMENOrdering Facility: [facility] Address: [address] [place] [address] Result Comment: The [place] [employer] (ADA) provides guidance for cutoff values for fasting glucose and random glucose. The ADA defines fasting as no caloric intake for at least 8 hours. Fasting plasma glucose results between 100 to 125 mg/dL indicate increased risk for diabetes (prediabetes).Fasting plasma glucose results greater than or equal to 126 mg/dL meet the criteria for diagnosis of diabetes. In the absence of unequivocal hyperglycemia, results should be confirmed by repeat testing. In a patient with classic symptoms of hyperglycemia or hyperglycemic crisis, random plasma glucose results greater than or equal to 200 mg/dL meet the criteria for diagnosis of diabetes.Reference: Standards of Medical Care in Diabetes 2016, [place] [employer]. Diabetes Care. 2016.39(Suppl 1). Performed By: #### 2 4323-8 ####[facility] LABCLIA [id number] [place] [address] Potassium [Moles/Vol] 4.3 mmol/L Normal 3.7-5.1 [facility] Comment on above: Order Comment: Speci men Type: BLOOD SPECIMENOrdering Facility: [facility] Address: [address] [place] [address] Performed By: #### 2 4323-8 ####[facility] LABCLIA [id number] [place] [address] Protein [Mass/Vol] 5.9 g/dL Low 6.3-8.0 [facility] Comment on above: Order Comment: Speci men Type: BLOOD SPECIMENOrdering Facility: [facility] Address: [address] [place] [address] Performed By: #### 2 4323-8 ####[facility] LABCLIA [id number] [place] [address] Sodium [Moles/Vol] 140 mmol/L Normal 136-144 [facility] Comment on above: Order Comment: Speci men Type: BLOOD SPECIMENOrdering Facility: [facility] Address: [address] [place] [address] Performed By: #### 2 4323-8 ####[facility] LABCLIA [id number] [place] [address] Urea nitrogen [Mass/Vol] 19 mg/dL Normal 7-21 [facility] Comment on above: Order Comment: Speci men Type: BLOOD SPECIMENOrdering Facility: [facility] Address: [address] [place] [address] Performed By: #### 2 4323-8 ####[facility] LABCLIA [id number] [place] [address] NM CARDIAC PERF STRESS/PHARM on 04-27-2023 NM CARDIAC PERF STRESS/PHARM Normal [facility] CNOVon 04-24-2023 CNOV Normal [facility] CNOVon 04-18-2023 CNOV Normal [facility] CNOVon 04-17-2023 CNOV Normal [facility] CBC W Auto Differential pane l (Bld)on 04-14-2023 Basophils (Bld) [#/Vol] 0.03 10*3/uL Normal <0.11 [facility] Comment on above: Order Comment: Speci men Type: BLOOD SPECIMENOrdering Facility: [facility] Address: [address] [place] [address] Performed By: #### 5 7021-8 ####[facility] LABCLIA [id number] [place] [address] Basophils/100 WBC (Bld) 0.6 % Normal [facility] Comment on above: Order Comment: Speci men Type: BLOOD SPECIMENOrdering Facility: [facility] Address: [address] [place] [address] Performed By: #### 5 7021-8 ####[facility] LABCLIA [id number] [place] [address] Differential cell count method Nom (Bld) Auto Normal [facility] Comment on above: Order Comment: Speci men Type: BLOOD SPECIMENOrdering Facility: [facility] Address: [address] [place] [address] Performed By: #### 5 7021-8 ####[facility] LABCLIA [id number] [place] [address] Eosinophils (Bld) [#/Vol] 0.29 10*3/uL Normal <0.46 [facility] Comment on above: Order Comment: Speci men Type: BLOOD SPECIMENOrdering Facility: [facility] Address: [address] [place] [address] Performed By: #### 5 7021-8 ####[facility] LABCLIA [id number] [place] [address] Eosinophils/100 WBC (Bld) 6.3 % Normal [facility] Comment on above: Order Comment: Speci men Type: BLOOD SPECIMENOrdering Facility: [facility] Address: [address] [place] [address] Performed By: #### 5 7021-8 ####[facility] LABCLIA [id number] [place] [address] Erythrocyte distribution width (RBC) [Ratio] 15.9 % High 11.5-15.0 [facility] Comment on above: Order Comment: Speci men Type: BLOOD SPECIMENOrdering Facility: [facility] Address: [address] [place] [address] Performed By: #### 5 7021-8 ####[facility] LABCLIA [id number] [place] [address] Hematocrit (Bld) [Volume fraction] 33.6 % Low 36.0-46.0 [facility] Comment on above: Order Comment: Speci men Type: BLOOD SPECIMENOrdering Facility: [facility] Address: [address] [place] [address] Performed By: #### 5 7021-8 ####[facility] LABCLIA [id number] [place] [address] Hemoglobin (Bld) [Mass/Vol] 10.7 g/dL Low 11.5-15.5 [facility] Comment on above: Order Comment: Speci men Type: BLOOD SPECIMENOrdering Facility: [facility] Address: [address] [place] [address] Performed By: #### 5 7021-8 ####[facility] LABCLIA [id number] [place] [address] Immature granulocytes (Bld) [#/Vol] 10*3/uL Normal <0.10 [facility] Comment on above: Order Comment: Speci men Type: BLOOD SPECIMENOrdering Facility: [facility] Address: [address] [place] [address] Performed By: #### 5 7021-8 ####[facility] LABCLIA [id number] [place] [address] Immature granulocytes/100 WBC (Bld) 0.4 % Normal [facility] Comment on above: Order Comment: Speci men Type: BLOOD SPECIMENOrdering Facility: [facility] Address: [address] [place] [address] Performed By: #### 5 7021-8 ####[facility] LABCLIA [id number] [place] [address] Lymphocytes (Bld) [#/Vol] 1.06 10*3/uL Normal 1.00-4.00 [facility] Comment on above: Order Comment: Speci men Type: BLOOD SPECIMENOrdering Facility: [facility] Address: [address] [place] [address] Performed By: #### 5 7021-8 ####[facility] LABCLIA [id number] [place] [address] Lymphocytes/100 WBC (Bld) 22.8 % Normal [facility] Comment on above: Order Comment: Speci men Type: BLOOD SPECIMENOrdering Facility: [facility] Address: [address] [place] [address] Performed By: #### 5 7021-8 ####[facility] LABCLIA [id number] [place] [address] MCH (RBC) [Entitic mass] 27.4 pg Normal 26.0-34.0 [facility] Comment on above: Order Comment: Speci men Type: BLOOD SPECIMENOrdering Facility: [facility] Address: [address] [place] [address] Performed By: #### 5 7021-8 ####[facility] LABCLIA [id number] [place] [address] MCHC (RBC) [Mass/Vol] 31.8 g/dL Normal 30.5-36.0 [facility] Comment on above: Order Comment: Speci men Type: BLOOD SPECIMENOrdering Facility: [facility] Address: [address] [place] [address] Performed By: #### 5 7021-8 ####[facility] LABCLIA [id number] [place] [address] MCV (RBC) [Entitic vol] 85.9 fL Normal 80.0-100.0 [facility] Comment on above: Order Comment: Speci men Type: BLOOD SPECIMENOrdering Facility: [facility] Address: [address] [place] [address] Performed By: #### 5 7021-8 ####[facility] LABCLIA [id number] [place] [address] Monocytes (Bld) [#/Vol] 0.42 10*3/uL Normal <0.87 [facility] Comment on above: Order Comment: Speci men Type: BLOOD SPECIMENOrdering Facility: [facility] Address: [address] [place] [address] Performed By: #### 5 7021-8 ####[facility] LABCLIA [id number] [place] [address] Monocytes/100 WBC (Bld) 9.1 % Normal [facility] Comment on above: Order Comment: Speci men Type: BLOOD SPECIMENOrdering Facility: [facility] Address: [address] [place] [address] Performed By: #### 5 7021-8 ####[facility] LABCLIA [id number] [place] [address] Neutrophils (Bld) [#/Vol] 2.82 10*3/uL Normal 1.45-7.50 [facility] Comment on above: Order Comment: Speci men Type: BLOOD SPECIMENOrdering Facility: [facility] Address: [address] [place] [address] Performed By: #### 5 7021-8 ####[facility] LABCLIA [id number] [place] [address] Neutrophils/100 WBC (Bld) 60.8 % Normal [facility] Comment on above: Order Comment: Speci men Type: BLOOD SPECIMENOrdering Facility: [facility] Address: [address] [place] [address] Performed By: #### 5 7021-8 ####[facility] LABIA [id number] [place] [address] Nucleated RBC (Bld) [#/Vol] 10*3/uL Normal <0.01 [facility] Comment on above: Order Comment: Speci men Type: BLOOD SPECIMENOrdering Facility: [facility] Address: [address] [place] [address] Performed By: #### 5 7021-8 ####[facility] LABCLIA [id number] [place] [address] Nucleated RBC/100 WBC (Bld) [Ratio] 0.0 /100 WBC Normal [facility] Comment on above: Order Comment: Speci men Type: BLOOD SPECIMENOrdering Facility: [facility] Address: [address] [place] [address] Performed By: #### 5 7021-8 ####[facility] LABIA [id number] [place] [address] Platelet mean volume (Bld) [Entitic vol] 8.4 fL Low 9.0-12.7 [facility] Comment on above: Order Comment: Speci men Type: BLOOD SPECIMENOrdering Facility: [facility] Address: [address] [place] [address] Performed By: #### 5 7021-8 ####[facility] LABCLIA [id number] [place] [address] Platelets (Bld) [#/Vol] 207 10*3/uL Normal 150-400 [facility] Comment on above: Order Comment: Speci men Type: BLOOD SPECIMENOrdering Facility: [facility] Address: [address] [place] [address] Performed By: #### 5 7021-8 ####[facility] LABCLIA [id number] [place] [address] RBC (Bld) [#/Vol] 3.91 10*6/uL Normal 3.90-5.20 [facility] Comment on above: Order Comment: Speci men Type: BLOOD SPECIMENOrdering Facility: [facility] Address: [address] [place] [address] Performed By: #### 5 7021-8 ####[facility] LABCLIA [id number] [place] [address] WBC (Bld) [#/Vol] 4.64 10*3/uL Normal 3.70-11.00 [facility] Comment on above: Order Comment: Speci men Type: BLOOD SPECIMENOrdering Facility: [facility] Address: [address] [place] [address] Performed By: #### 5 7021-8 ####[facility] LABCLIA [id number] [place] [address] CNOVSPon 04-14-2023 CNOVSP Normal [facility] Comprehensive metabolic 2000 panelon 04-14-2023 Albumin [Mass/Vol] 4.2 g/dL Normal 3.9-4.9 [facility] Comment on above: Order Comment: Speci men Type: BLOOD SPECIMENOrdering Facility: [facility] Address: [address] [place] [address] Performed By: #### 2 4323-8 ####[facility] LABCLIA [id number] [place] [address] ALP [Catalytic activity/Vol] 55 U/L Normal 34-123 [facility] Comment on above: Order Comment: Speci men Type: BLOOD SPECIMENOrdering Facility: [facility] Address: [address] [place] [address] Performed By: #### 2 4323-8 ####[facility] LABCLIA [id number] [place] [address] ALT [Catalytic activity/Vol] 14 U/L Normal 7-38 [facility] Comment on above: Order Comment: Speci men Type: BLOOD SPECIMENOrdering Facility: [facility] Address: [address] [place] [address] Performed By: #### 2 4323-8 ####[facility] LABCLIA [id number] [place] [address] Anion gap [Moles/Vol] 6 mmol/L Low 9-18 [facility] Comment on above: Order Comment: Speci men Type: BLOOD SPECIMENOrdering Facility: [facility] Address: [address] [place] [address] Performed By: #### 2 4323-8 ####[facility] LABCLIA [id number] [place] [address] AST [Catalytic activity/Vol] 13 U/L Normal 13-35 [facility] Comment on above: Order Comment: Speci men Type: BLOOD SPECIMENOrdering Facility: [facility] Address: [address] [place] [address] Performed By: #### 2 4323-8 ####[facility] LABCLIA [id number] [place] [address] Bilirubin [Mass/Vol] 0.2 mg/dL Normal 0.2-1.3 [facility] Comment on above: Order Comment: Speci men Type: BLOOD SPECIMENOrdering Facility: [facility] Address: [address] [place] [address] Performed By: #### 2 4323-8 ####[facility] LABCLIA [id number] [place] [address] Calcium [Mass/Vol] 8.7 mg/dL Normal 8.5-10.2 [facility] Comment on above: Order Comment: Speci men Type: BLOOD SPECIMENOrdering Facility: [facility] Address: [address] [place] [address] Performed By: #### 2 4323-8 ####[facility] LABCLIA [id number] [place] [address] Chloride [Moles/Vol] 107 mmol/L High 97-105 [facility] Comment on above: Order Comment: Speci men Type: BLOOD SPECIMENOrdering Facility: [facility] Address: [address] [place] [address] Performed By: #### 2 4323-8 ####[facility] LABCLIA [id number] [place] [address] CO2 [Moles/Vol] 25 mmol/L Normal 22-30 [facility] Comment on above: Order Comment: Speci men Type: BLOOD SPECIMENOrdering Facility: [facility] Address: [address] [place] [address] Performed By: #### 2 4323-8 ####[facility] LABCLIA [id number] [place] [address] Creatinine [Mass/Vol] 0.80 mg/dL Normal 0.58-0.96 [facility] Comment on above: Order Comment: Speci men Type: BLOOD SPECIMENOrdering Facility: [facility] Address: [address] [place] [address] Performed By: #### 2 4323-8 ####[facility] LABCLIA [id number] [place] [address] Creatinine and Glomerular filtration rate.predicted panel (S/P/Bld) 80 mL/min/1.73m??? Normal >=60 [facility] Comment on above: Order Comment: Mason simpson Type: BLOOD SPECIMENOrdering Facility: [facility] Address: [address] [place] [address] Result Comment: Farhana mated Glomerular Filtration Rate (eGFR) is calculated using the 2020 CKD-EPI creatinine equation. This equation utilizes serum creatinine, sex, and age as parameters. The creatinine assay has traceable calibration to isotope dilution-mass spectrometry. Refer to KDIGO guidelines for clinical interpretation. In patients with unstable renal function, e.g. those with acute kidney injury, the eGFR may not accurately reflect actual GFR. Performed By: #### 2 4323-8 ####[facility] LABCLIA [id number] [place] [address] Glucose [Mass/Vol] 91 mg/dL Normal 74-99 [facility] Comment on above: Order Comment: Mason simpson Type: BLOOD SPECIMENOrdering Facility: [facility] Address: [address] [place] [address] Result Comment: The [place] Diabetes Association (ADA) provides guidance for cutoff values for fasting glucose and random glucose. The ADA defines fasting as no caloric intake for at least 8 hours. Fasting plasma glucose results between 100 to 125 mg/dL indicate increased risk for diabetes (prediabetes).Fasting plasma glucose results greater than or equal to 126 mg/dL meet the criteria for diagnosis of diabetes. In the absence of unequivocal hyperglycemia, results should be confirmed by repeat testing. In a patient with classic symptoms of hyperglycemia or hyperglycemic crisis, random plasma glucose results greater than or equal to 200 mg/dL meet the criteria for diagnosis of diabetes.Reference: Standards of Medical Care in Diabetes 2016, [place] [employer]. Diabetes Care. 2016.39(Suppl 1). Performed By: #### 2 4323-8 ####[facility] LABCLIA [id number] [place] [address] Potassium [Moles/Vol] 4.8 mmol/L Normal 3.7-5.1 [facility] Comment on above: Order Comment: Mason simpson Type: BLOOD SPECIMENOrdering Facility: [facility] Address: [address] [place] [address] Performed By: #### 2 4323-8 ####[facility] LABCLIA [id number] [place] [address] Protein [Mass/Vol] 6.0 g/dL Low 6.3-8.0 [facility] Comment on above: Order Comment: Speci men Type: BLOOD SPECIMENOrdering Facility: [facility] Address: [address] [place] [address] Performed By: #### 2 4323-8 ####[facility] LABCLIA [id number] [place] [address] Sodium [Moles/Vol] 138 mmol/L Normal 136-144 [facility] Comment on above: Order Comment: Speci men Type: BLOOD SPECIMENOrdering Facility: [facility] Address: [address] [place] [address] Performed By: #### 2 4323-8 ####[facility] LABCLIA [id number] [place] [address] Urea nitrogen [Mass/Vol] 24 mg/dL High 7-21 [facility] Comment on above: Order Comment: Speci men Type: BLOOD SPECIMENOrdering Facility: [facility] Address: [address] [place] [address] Performed By: #### 2 4323-8 ####[facility] LABIA [id number] [place] [address] CNOVon 04-10-2023 CNOV Normal [facility] CNPNon 04-10-2023 CNPN Normal [facility] CNOVSPon 04-07-2023 CNOVSP Normal [facility] CNPNon 04-06-2023 CNPN Telephone (AVXRPR) ----- EVAN GILL ([id number]) 1955 F Date Time Provider Department 04/06/23 ROSALINA BYERS (RN) AVXRPR During your visit today, we recorded the following information about you: Rosalina Byers RN 04/06/2023 3:47 PM Signed You are scheduled for a Port Placement, On 04/11/2023. You are to arrive at 2:00 PM and Report to [facility]: Enter through [place] [facility] entrance. Proceed to the 2nd floor Surgical Services Desk for check in. You can expect to be here for 2-4 hours. Diet: Do not eat any solid food after midnight the day of/night before your procedure. You may drink clear liquids until 1:00 PM which means black coffee, apple juice, black tea, or water only. Medications: Ok to take your cardiac, blood pressure, anti-seizure, and chronic pain medications with a sip of water, please take prior to arrival. Bring your current medication list. Special concerns: Do you have any attached medical devices? No Insulin pumps must be removed before entering the procedure room. Do you wear Neulasta Onpro? No. If yes, the device must be removed before entering the procedure room. Do you use CPAP or BPAP? Not applicable . Labs: Lab-work needs to be drawn? Yes, CBC AND CMP labs need to be drawn at least one day prior to procedure. Please bring a copy of the results if they are not done at a [facility] facility. . Electroplating Technician/Transportation: How will you be arriving for your procedure? Private car. You will need a responsible adult to accompany you to and from the procedure. If you have any questions, please call [phone] [facility] [place] [phone] [facility] [place] [address] Allergies As of Date: 04/06/2023 (No Known Allergies) Date Reviewed: 04/05/2023 Reviewed by: Naheed Elias PA-C - Fully Assessed Reason for Visit: Radiology Pre Procedure Instructions [1506] Prescriptions as of 04/06/2023 - vitamin D3/vitamin K2, MK4, (K2 PLUS D3 ORAL) Take 1 Dose by mouth once daily. - compounded progesterone 50 mg capsule Take 150 mg by mouth daily at bedtime. - Testosterone 12.5 mg/ 1.25 gram (1 %) glpm Apply 4 Pump as directed once daily. - MEDICATION, NON-DATABASE Take 1 Each by mouth once daily. Metabolic Maintenance DIM Complete - 100mg Diindolylmethane Supplement with Vitamin E, B12 + Active Folate - MEDICATION, NON-DATABASE Take 1 Each by mouth once daily. [employer] supplies guzman mitochondrial micronutrients and a smart combination of alpha lipoic acid, N-acetyl cysteine, and acetyl L-carnitine - ondansetron orally disintegrating (ZOFRAN ODT) 8 mg disintegrating tablet Take 1 tablet by mouth every 8 hours as needed for nausea/vomiting. - capecitabine (XELODA) 500 mg tablet Take 3 tablets (1,500 mg) by mouth twice daily Monday through Monday only on days of radiation. - prochlorperazine (COMPAZINE) 10 mg tablet Take 1 tablet by mouth every 6 hours as needed. - ondansetron (ZOFRAN) 8 mg tablet Take 1 tablet by mouth every 8 hours as needed for nausea/vomiting. - polyethylene glycol 3350 (MIRALAX) 17 gram/dose powder Take by mouth once daily. Dissolve dose in 4 - 8 ounces of liquid and take as directed. - vortioxetine (TRINTELLIX) 5 mg tablet Take 10 mg by mouth. - oxybutynin ER (DITROPAN XL) 15 mg 24 hr Extended Rel Tab Take 15 mg by mouth. - amLODIPine-benazepril (LOTREL) 5-10 mg per capsule Take 1 capsule by mouth every morning. - meloxicam (MOBIC) 15 mg tablet Take 1 tablet by mouth every afternoon. - Magnesium 250 mg tab Take 500 mg by mouth. - potassium citrate 99 mg cap Take 1 tablet by mouth every morning. - aspirin, enteric coated (ASPIRIN, ENTERIC COATED) 81 mg EC tablet Take 81 mg by mouth once daily. - Lactobacillus acidophilus (PROBIOTIC ORAL) Take by mouth. - docosahexaenoic acid/epa (FISH OIL ORAL) Take by mouth. - calcium carbonate/vitamin d3(CALCIUM 600 WITH VITAMIN D3 600 MG (1,500 MG)-400 UNIT CAP) Take one(1) tablet three times daily. Problem List As Of Date 04/06/2023 Noted Resolved OSTEOARTHROS NOS-ANKLE [M19.079] 12/20/2005 Personal History of Malignant Melanoma of Skin *04/28/2009 Encounter Status:Closed by ROSALINA BYERS on 04/06/23 Normal [facility] Creatine Kinaseon 04-06-2023 CK [Catalytic activity/Vol] 36 U/L Normal 30-223 [facility] Comment on above: Performed By: #### C K, HS TROP #### [facility] [address] [place] [address] [facility] CK [Catalytic activity/Vol] 39 U/L Normal 30-223 [facility] Comment on above: Performed By: #### L YTES, CREAT, CBC, BUN #### [facility] [address] [place] [id number] [facility] Creatine kinase [Enzymatic a ctivity/volume] in Serum or PlasmaOrdered By: Jordan Hare on 04-06-2023 CK [Catalytic activity/Vol] 36 U/L 30-223 [facility] ECG 12 lead ECGon 04-06-2023 ECG 12 lead ECG [facility] Main [place] [address] [place] [address] Electrocardiograph Report Signed Patient: Evan Gill MR#: [id number] [birth year] : 1955 Acct:[id number] Age/Sex: 67 / F ADM Date: 04/05/23 Loc: Room: [address] [place] [address] Type: DIS INOo Attending Dr: Agustin Negron MD Ordering Provider: Marcos Rios MD Date of Service: 04/06/23 ECG/ECG 12 lead ECG: check for pericarditis Copies to: Test Reason : Blood Pressure : / mmHG Vent. Rate : 076 BPM Atrial Rate : 076 BPM P-R Int : 160 ms QRS Dur : 076 ms QT Int : 366 ms P-R-T Axes : 030 065 068 degrees QTc Int : 411 ms Normal sinus rhythm Normal ECG When compared with ECG of 05-APR-2023 13:00, MI interval has increased Confirmed by LASHELL VELASQUEZ, GHASSAN ([id number]) on 04/07/2023 8:38:20 AM Referred By: Electronically Signed By:GHASSAN LOBO MD Transcribed By: MUS Signed By Ghassan Lobo MD 0838 Normal [facility] ECH echo transthoracicon [facility] echo transthoracic [facility] Main [place] [id number] Echocardiogram Signed Patient: Evan Gill MR#: [id number] [birth year] : 1955 Acct:[id number] Age/Sex: 67 / F ADM Date: 04/05/23 Loc: Room: [address] [place] [address] Type: ADM INOo Attending Dr: Agustin Negron MD Ordering Provider: Marcos Rios MD Date of Service: 04/06/23 [facility] echo transthoracic: chest pain Copies to: Marcos Rios MD PM : 1955 Gender: Female (MM/DD/YYYY) Age: 67 Years Ordering Physician: Marcos Rios Height: 62.99 in Weight: 132.253 lb Performed By: Helen Gaviria SOULEYMANE BSA: 1.62 m2 BP: 103 / 68 mmHg HR: 73 bpm Reason For Study: chest pain History: Cancer. Chemotherapy. HTN. Family history of CAD. + -+ Interpretation Summary Ejection Fraction = 55-60%. The left ventricular size, thickness and function are normal The left ventricular wall motion is normal. A variety of Doppler measurements indicate impaired left ventricular relaxation, which is associated with grade I/IV or mild diastolic dysfunction. There is no comparison study available. Procedure/Quality: A two-dimensional transthoracic echocardiogram with color flow and Doppler was performed. The study was technically good in quality. Left Ventricle: The left ventricular size, thickness and function are normal. Ejection Fraction = 55-60%. A variety of Doppler measurements indicate impaired left ventricular relaxation, which is associated with grade I/IV or mild diastolic dysfunction. The left ventricular wall motion is normal. Left Atrium: The left atrium appears normal in size. Right Atrium: The right atrium appears normal in size. Right Ventricle: The right ventricular size, thickness and function are normal. Aortic Valve: The aortic valve is normal in structure and function. No aortic regurgitation is present. Mitral Valve: The mitral valve is normal in structure and function. There is no mitral regurgitation noted. Tricuspid Valve: The tricuspid valve is normal in structure and function. There is trace tricuspid regurgitation. Right ventricular systolic pressure is normal. Pulmonic Valve: The pulmonic valve is normal in structure and function. Arteries: The aortic root is normal size. Pericardium/Pleura: No pericardial effusion seen. There is no pleural effusion. IVC/Hepatic Veins: The inferior vena cava is normal in size, with a normal collapsibility index. MMode/2D Measurements Calculations IVSd (0.7-1.1 cm): 1.17 cm LVIDd (3.7-5.4 cm): 3.5 cm LVPWd (0.7-1.1 cm): 1.14 cm LVIDs (2.3-3.6 cm): 2.49 cm LA dimension (2.3-4.0 cm): 3.2 cm Ao root diam (2.0-3.2 cm): 2.9 cm FS: 27.9 % Ao root area: 6.8 cm2 EDV(Teich): 49.3 ml LVOT diam: 2.10 cm ESV(Teich): 22.1 ml LVOT area: 3.5 cm2 EF(Teich): 55.2 % LAV(MOD-sp2): 19.2 ml LAV(MOD-sp4): 29.1 ml LA A2 area: 9.2 cm2 LA A4 area: 13.7 cm2 LA length (vol): 4.7 cm LA vol: 23.0 ml LA vol index: 14.2 ml/m2 Doppler Measurements Calculations MV E max mary: 39.4 cm/sec Ao V2 max: 116.3 cm/sec MV A max mary: 72.0 cm/sec Ao max P.4 mmHg MV dec time: 0.36 sec Ao mean P.3 mmHg MV dec slope: 108.2 cm/sec?? Ao V2 mean: 85.8 cm/sec E/E' lat: 2.9 Ao V2 VTI: 16.5 cm E/E' med: 6.8 WILFREDO(I,D): 3.7 cm2 WILFREDO(V,D): 3.2 cm2 TV max P.0 mmHg LV V1 max: 108.4 cm/sec TR max mary: 233.7 cm/sec LV V1 max P.7 mmHg TR max P.8 mmHg LV V1 mean: 85.5 cm/sec RAP systole: 5.0 mmHg LV V1 mean P.1 mmHg LV V1 VTI: 17.8 cm Other Measurements Calculations LV GLS Endo Peak A2C (): LV GLS Endo Peak A3C (): -20.8 % -20.4 % LV GLS Endo Peak A4C (): LV GLS Endo Peak Avg (): -19.5 % -20.2 % + + + + + --+ + : Electronically signed : : : : by: SANDIE Contreras. : : MD GABRIEL : : : : on: 04/06/2023, 2:05 : : PM : Transcribed By: SCV Performed At: 04/06/23 1210 Signed By: Marcos Rios MD 09/28/23 1405 [facility] Troponin I High Sensitivityo n 04-06-2023 Troponin I High Sensitivity 5.8 pg/mL Normal 0.0-15.0 [facility] Comment on above: Result Comment: PERF ORMED BY: [place] [address] PATHOLOGIST GASOLINE ATTENDANT LYUDMILA GIANG M.D. Performed By: #### C K, HS TROP #### [facility] [address] [place] [address] Troponin I High Sensitivity 10.9 pg/mL Normal 0.0-15.0 [facility] Comment on above: Result Comment: PERF ORMED BY: [place] [address] PATHOLOGIST GASOLINE ATTENDANT LYUDMILA GIANG M.D. Performed By: #### L YTES, CREAT, CBC, BUN #### [facility] [address] [place] [address] Troponin I.cardiac [Mass/vol ume] in Serum or Plasma by Detection limit <= 0.01 ng/Ordered By: Jordan Hare on 04-06-2023 Troponin I.cardiac DL <= 0.01 ng/mL [Mass/Vol] 5.8 pg/mL 0.0-15.0 [facility] Activated partial thrombopla stin time (aPTT) in platelet poor plasma by coagulation aOrdered By: Gregory Rangel on 04-05-2023 aPTT Coag (PPP) [Time] 27.9 s 25.1-36.5 [facility] Comment on above: A hematocrit value g reater than 55% may lead to inaccurate results in coagulation testing. Patients having hematocrit values >55% require a special collection tube for coagulation studies. Please contact the laboratory at [phone] for redraw instructions. Alanine aminotransferase [En zymatic activity/volume] in Serum or PlasmaOrdered By: Gregory Rangel on 04-05-2023 ALT [Catalytic activity/Vol] 18 U/L 7-52 [facility] Albumin [Mass/volume] in Ser um or Plasma by Bromocresol green (BCG) dye binding methoOrdered By: Gregory Rangel on 04-05-2023 Albumin BCG dye [Mass/Vol] 4.5 g/dL 3.5-5.7 [facility] Alkaline phosphatase [Enzyma tic activity/volume] in Serum or PlasmaOrdered By: Gregory Rangel on 04-05-2023 ALP [Catalytic activity/Vol] 50 U/L 34-104 [facility] Aspartate aminotransferase [ Enzymatic activity/volume] in Serum or PlasmaOrdered By: Gregory Rangel on 04-05-2023 AST [Catalytic activity/Vol] 16 U/L 13-39 [facility] B-Type Natriuretic Peptideon 04-05-2023 Natriuretic peptide B (Bld) [Mass/Vol] 158.0 pg/mL High 5-100 [facility] Comment on above: Result Comment: PERF ORMED BY: [place] [address] PATHOLOGIST GASOLINE ATTENDANT LYUDMILA GIANG M.D. Performed By: #### L YTES, CREAT, CBC, BUN #### [facility] [address] [place] [address] Basic Metabolic Panelon 03-11 Anion gap [Moles/Vol] 17.4 mmol/L High 6.0-15.0 [facility] Comment on above: Performed By: #### G LULS #### Point of Care testing , Calcium [Mass/Vol] 9.4 mg/dL Normal 8.6-10.3 [facility] [place] [facility] Comment on above: Performed By: #### G LULS #### Point of Care testing , Chloride [Moles/Vol] 102 mmol/L Normal 98-107 [facility] Comment on above: Performed By: #### G LULS #### Point of Care testing , CO2 [Moles/Vol] 23.1 mmol/L Normal 21.0-31.0 [facility] Comment on above: Performed By: #### G LULS #### Point of Care testing , Creatinine [Mass/Vol] 0.74 mg/dL Normal 0.60-1.20 [facility] Comment on above: Performed By: #### G LULS #### Point of Care testing , Creatinine Clr Calc Pharmacy 54.90 Normal [facility] Comment on above: Performed By: #### G LULS #### Point of Care testing , GFR/1.73 sq M.predicted MDRD (S/P/Bld) [Vol rate/Area] mL/min/{1.73_m2} Normal [facility] Comment on above: Performed By: #### G LULS #### Point of Care testing , Glucose [Mass/Vol] 109 mg/dL High 70-100 [facility] [place] [facility] Comment on above: Result Comment: [facility] Glucose Reference Range is dependent on time and content of last meal. Glucose of more than 200 mg/dL in a nonstressed, ambulatory subject supports the diagnosis of Diabetes Mellitus. ADA recommended reference range Performed By: #### G LULS #### Point of Care testing , Potassium [Moles/Vol] 3.5 mmol/L Normal 3.5-5.1 [facility] Comment on above: Performed By: #### G LULS #### Point of Care testing , Sodium [Moles/Vol] 139 mmol/L Normal 136-145 [facility] [place] [facility] Comment on above: Performed By: #### G LULS #### Point of Care testing , Urea nitrogen [Mass/Vol] 20 mg/dL Normal 7-25 [facility] Comment on above: Performed By: #### G LULS #### Point of Care testing , Basophils Auto (Bld) [#/Vol] Ordered By: Gregory Rangel on 04-05-2023 Basophils (Bld) [#/Vol] 0.0 10*3/uL 0.0-0.2 [facility] Basophils/100 WBC Auto (Bld) Ordered By: Gregory Rangel on 04-05-2023 Basophils/100 WBC (Bld) 0.7 % . [facility] Bilirubin.direct [Mass/volum e] in Serum or PlasmaOrdered By: Gregory Rangel on 04-05-2023 Bilirubin.direct [Mass/Vol] 0.10 mg/dL 0.03-0.18 [facility] Bilirubin.total [Mass/volume ] in Serum or PlasmaOrdered By: Gregory Rangel on 04-05-2023 Bilirubin [Mass/Vol] 0.5 mg/dL 0.3-1.0 [facility] CNPNon 04-05-2023 CNPN Normal [facility] CT angio chest PE protocolon 04-05-2023 CT angio chest PE protocol [facility] Main [place] [address] [place] [id number] Scan Report Signed Patient: Evan Gill MR#: [id number] [birth year] : 1955 Acct:[id number] Age/Sex: 67 / F ADM Date: 04/05/23 Loc: ER Room: Type: [facility] ER Attending Dr: Copies to: Gregory Rangel PA-C Ordering Provider: Gregory Rangel PA-C Date of Service: 04/05/23 CT/CT angio chest PE protocol: chest pain, hx cancer CTA Chest with PE protocol TECHNIQUE: Axial imaging with 2-D and 3-D reconstruction. 90cc of Isovue-[address] exam was performed using one or more the following dose reduction techniques: Automated exposure control, adjustment of the MA and/or Kv according to patient size, or use of the iterative reconstruction technique. History: Chest pain with radiation to the back. Shortness of breath. Diaphoresis. COMPARISON: 02/26/2023 THYROID: Unremarkable TRACHEA AND BRONCHI: Patent ESOPHAGUS: Unremarkable. HEART: Within normal limits PERICARDIAL EFFUSION: None CORONARY ARTERY CALCIFICATION: None MEDIASTINUM: No adenopathy. No pneumoperitoneum. No mediastinal hematoma. PULMONARY MARTINA: No hilar mass or adenopathy is seen. THORACIC AORTA Unremarkable PULMONARY EMBOLUS: None LUNG NODULE None LUNGS: There are basilar atelectasis. No focal consolidation. PLEURAL EFFUSION: Done PNEUMOTHORAX: No pneumothorax seen. CHEST WALL: No abnormality AXILLA: Unremarkable BONY STRUCTURES Intact UPPER ABDOMEN: Images of the upper abdomen are noncontributory. CT/CT angio chest PE protocol IMPRESSION: No pulmonary embolus. No acute findings. Impression dictated by: Cameron Lares M.D.04/05/2023 2:46 PM Dictation Location: [place] [address] Transcribed By: [facility] 04/05/23 1446 Dictated By: Cameron Lares DO 04/05/23 1442 Signed By: 04/05/23 1446 Normal [facility] Calcium [Mass/volume] in Ser um or PlasmaOrdered By: Gregory Rangel on 04-05-2023 Calcium [Mass/Vol] 9.4 mg/dL 8.6-10.3 [facility] Carbon dioxide, total [Moles /volume] in Serum or PlasmaOrdered By: Gregory Rangel on 04-05-2023 CO2 [Moles/Vol] 23.1 mmol/L 21.0-31.0 [facility] Chloride [Moles/volume] in S jeevan or PlasmaOrdered By: Gregory Rangel on 04-05-2023 Chloride [Moles/Vol] 102 mmol/L 98-107 [facility] Complete Blood Count Auto Di ffon 04-05-2023 Basophils (Bld) [#/Vol] 0.0 10*3/uL Normal 0.0-0.2 [facility] Comment on above: Result Comment: PERF ORMED BY: [place] [address] PATHOLOGIST GASOLINE ATTENDANT LYUDMILA GIANG M.D. Performed By: #### L YTES, CREAT, CBC, BUN #### [address] Basophils/100 WBC (Bld) 0.7 % Normal . [facility] Comment on above: Performed By: #### L YTES, CREAT, CBC, BUN #### [place] [address] [place] Eosinophils (Bld) [#/Vol] 0.1 10*3/uL Normal 0.0-0.45 [facility] Comment on above: Performed By: #### L YTES, CREAT, CBC, BUN #### [place] [address] [place] Eosinophils/100 WBC (Bld) 1.1 % Normal . [facility] Comment on above: Performed By: #### L YTES, CREAT, CBC, BUN #### [address] Erythrocyte distribution width (RBC) [Ratio] 15.0 % Normal 11.9-15.3 [facility] Comment on above: Performed By: #### L YTES, CREAT, CBC, BUN #### [address] Hematocrit (Bld) [Volume fraction] 35.7 % Normal 34.0-46.4 [facility] Comment on above: Performed By: #### L YTES, CREAT, CBC, BUN #### [address] Hemoglobin (Bld) [Mass/Vol] 11.7 g/dL Low 11.8-15.4 [facility] Comment on above: Performed By: #### L YTES, CREAT, CBC, BUN #### [address] Lymphocytes (Bld) [#/Vol] 2.6 10*3/uL Normal 1.00-4.8 [facility] Comment on above: Performed By: #### L YTES, CREAT, CBC, BUN #### [address] Lymphocytes/100 WBC (Bld) 38.8 % Normal . [facility] Comment on above: Performed By: #### L YTES, CREAT, CBC, BUN #### [address] MCH (RBC) [Entitic mass] 27.2 pg Normal 24.7-34.3 [facility] Comment on above: Performed By: #### L YTES, CREAT, CBC, BUN #### [address] MCV (RBC) [Entitic vol] 83.4 fL Normal 80-100 [facility] Comment on above: Performed By: #### L YTES, CREAT, CBC, BUN #### [address] Mean Corpuscular HGB Conc 32.7 g/dL Normal 32.0-35.0 [facility] Comment on above: Performed By: #### L YTES, CREAT, CBC, BUN #### [address] Monocytes (Bld) [#/Vol] 0.5 10*3/uL Normal 0.0-0.8 [facility] Comment on above: Performed By: #### L YTES, CREAT, CBC, BUN #### [address] Monocytes/100 WBC (Bld) 19.16 % Normal 0.00-20.00 [facility] Comment on above: Performed By: #### L YTES, CREAT, CBC, BUN #### [address] Monocytes/100 WBC (Bld) 7.5 % Normal . [facility] Comment on above: Performed By: #### L YTES, CREAT, CBC, BUN #### [address] Neutrophils (Bld) [#/Vol] 3.4 10*3/uL Normal 1.8-7.7 [facility] Comment on above: Performed By: #### L YTES, CREAT, CBC, BUN #### [address] Neutrophils/100 WBC (Bld) 51.9 % Normal . [facility] Comment on above: Performed By: #### L YTES, CREAT, CBC, BUN #### [address] NRBC% 0.1 /100{WBC} Normal 0-0.5 [facility] Comment on above: Performed By: #### L YTES, CREAT, CBC, BUN #### [address] Platelet mean volume (Bld) [Entitic vol] 6.6 fL Normal 6.3-10.7 [facility] Comment on above: Performed By: #### L YTES, CREAT, CBC, BUN #### [place] [id number] [place] Platelets (Bld) [#/Vol] 312 10*3/uL Normal 150-450 [facility] Comment on above: Performed By: #### L YTES, CREAT, CBC, BUN #### [address] RBC (Bld) [#/Vol] 4.28 10*6/uL Normal 3.60-5.00 [facility] Comment on above: Performed By: #### L YTES, CREAT, CBC, BUN #### [facility] [address] WBC (Bld) [#/Vol] 6.6 10*3/uL Normal 3.8-11.6 [facility] [place] [facility] Comment on above: Performed By: #### L YTES, CREAT, CBC, BUN #### [address] Creatine Kinaseon 04-05-2023 CK [Catalytic activity/Vol] 43 U/L Normal 30-223 [facility] Comment on above: Performed By: #### L YTES, CREAT, CBC, BUN #### [address] CK [Catalytic activity/Vol] 53 U/L Normal 30-223 [facility] Comment on above: Performed By: #### G LULS #### Point of Care testing , Creatine kinase [Enzymatic a ctivity/volume] in Serum or PlasmaOrdered By: Jordan Hare on 04-05-2023 CK [Catalytic activity/Vol] 43 U/L 30-223 [facility] Creatinine [Mass/volume] in Serum or PlasmaOrdered By: Gregory Rangel on 04-05-2023 Creatinine [Mass/Vol] 0.74 mg/dL 0.60-1.20 [facility] ECG 12 lead ECGon 04-05-2023 ECG 12 lead ECG [facility] [place] [address] [place] [address] Electrocardiograph Report Signed Patient: Evan Gill MR#: [id number] [birth year] : 1955 Acct:[id number] Age/Sex: 67 / F ADM Date: 04/05/23 Loc: Room: [address] [place] [address] Type: ADM INOo Attending Dr: Jordan Hare DO Ordering Provider: Gregory Rangel PA-C Date of Service: 04/05/23 ECG/ECG 12 lead ECG: Chest Pain Copies to: Test Reason : Blood Pressure : / mmHG Vent. Rate : 082 BPM Atrial Rate : 082 BPM P-R Int : 080 ms QRS Dur : 082 ms QT Int : 374 ms P-R-T Axes : 000 076 050 degrees QTc Int : 436 ms Sinus rhythm with sinus arrhythmia with short MI Confirmed by Patrice Gomez DO ([id number]) on 04/05/2023 7:47:08 PM Referred By: Electronically Signed By:Patrice Gomez DO Transcribed By: MUS Signed By Patrice Gomez DO 1946 Normal [facility] Eosinophils Auto (Bld) [#/Vo l]Ordered By: Gregory Rangel on 04-05-2023 Eosinophils (Bld) [#/Vol] 0.1 10*3/uL 0.0-0.45 [facility] Eosinophils/100 WBC Auto (Bl d)Ordered By: Gregory Rangel on 04-05-2023 Eosinophils/100 WBC (Bld) 1.1 % . [facility] Erythrocyte distribution wid th Auto (RBC) [Ratio]Ordered By: Gregory Rangel on 04-05-2023 Erythrocyte distribution width (RBC) [Ratio] 15.0 % 11.9-15.3 [facility] Globulin Calc (S) [Mass/Vol] Ordered By: Gregory Rangel on 04-05-2023 Globulin (S) [Mass/Vol] 2.5 g/dL [facility] Glucose [Mass/volume] in Ser um or PlasmaOrdered By: Gregory Rangel on 04-05-2023 Glucose [Mass/Vol] 109 mg/dL 70-100 [facility] Comment on above: ADA recommended refe rence rangeRandom Glucose Reference Range is dependent on time and content of last meal. Glucose of more than 200 mg/dL in a nonstressed, ambulatory subject supports the diagnosis of Diabetes Mellitus. Hematocrit Auto (Bld) [Volum e fraction]Ordered By: Gregory Rangel on 04-05-2023 Hematocrit (Bld) [Volume fraction] 35.7 % 34.0-46.4 [facility] Hemoglobin [Mass/volume] in BloodOrdered By: Gregory Rangel on 04-05-2023 Hemoglobin (Bld) [Mass/Vol] 11.7 g/dL 11.8-15.4 [facility] Hepatic Panelon 04-05-2023 Albumin [Mass/Vol] 4.5 g/dL Normal 3.5-5.7 [facility] [place] [facility] Comment on above: Performed By: #### L YTES, CREAT, CBC, BUN #### [address] Albumin/Globulin [Mass ratio] 1.8 {ratio} Normal [facility] Comment on above: Performed By: #### L YTES, CREAT, CBC, BUN #### [address] ALP [Catalytic activity/Vol] 50 U/L Normal 34-104 [facility] Comment on above: Performed By: #### L YTES, CREAT, CBC, BUN #### [address] ALT [Catalytic activity/Vol] 18 U/L Normal 7-52 [facility] Comment on above: Performed By: #### L YTES, CREAT, CBC, BUN #### [address] AST [Catalytic activity/Vol] 16 U/L Normal 13-39 [facility] Comment on above: Performed By: #### L YTES, CREAT, CBC, BUN #### [address] Bilirubin [Mass/Vol] 0.5 mg/dL Normal 0.3-1.0 [facility] Comment on above: Performed By: #### L YTES, CREAT, CBC, BUN #### [place] [address] [place] Bilirubin,Indirect 0.4 mg/dL Normal [facility] [place] [facility] Comment on above: Performed By: #### L ZORANES, CREAT, CBC, BUN #### [facility] [address] Bilirubin.indirect [Mass/Vol] 0.10 mg/dL Normal 0.03-0.18 [facility] Comment on above: Performed By: #### L YTES, CREAT, CBC, BUN #### [facility] [address] Globulin (S) [Mass/Vol] 2.5 g/dL Normal [facility] Comment on above: Performed By: #### L YTES, CREAT, CBC, BUN #### [facility] [address] Protein [Mass/Vol] 7.0 g/dL Normal 6.4-8.9 [facility] [place] [facility] Comment on above: Performed By: #### L ZORANES, CREAT, CBC, BUN #### [address] INR in Platelet poor plasma by Coagulation assayOrdered By: Gregory Rangel on 04-05-2023 INR Coag (PPP) [Relative time] 1.0 {INR} [facility] Comment on above: INR Therapeutic Rang e A) Pre- and Peroperative OAT started two weeks before surgery. NOT HIP SURGERY: 1.5 - 2.5 HIP SURGERY: 2 - 3B) Primary and secondary prevention of venous THROMBOSIS: 2 - 3C) Active venous thrombosis, pulmonary embolismand prevention of recurrent venous thrombosis: 2 - 3D) Prevention of arterial thromboembolismincluding patients with mechanical heart valves: 3 - 4.5 Leukocytes [#/volume] correc french for nucleated erythrocytes in Blood by Automated counOrdered By: Gregory Rangel on 04-05-2023 WBC corrected for nucl RBC Auto (Bld) [#/Vol] 6.6 10*3/uL 3.8-11.6 [facility] Lipaseon 04-05-2023 Lipase [Catalytic activity/Vol] 13.0 U/L Normal 11.0-82.0 [facility] Comment on above: Result Comment: PERF ORMED BY: [facility] [place] [address] PATHOLOGIST GASOLINE ATTENDANT LYUDMILA GIANG M.D. Performed By: #### G LUVALERIANO #### Point of Care testing , Lipase [Enzymatic activity/v olume] in Serum or PlasmaOrdered By: Gregory Rangel on 04-05-2023 Lipase [Catalytic activity/Vol] 13.0 U/L 11.0-82.0 [facility] Lymphocytes Auto (Bld) [#/Vo l]Ordered By: Gregory Rangel on 04-05-2023 Lymphocytes (Bld) [#/Vol] 2.6 10*3/uL 1.00-4.8 [facility] Lymphocytes/100 WBC Auto (Bl d)Ordered By: Gregory Rangel on 04-05-2023 Lymphocytes/100 WBC (Bld) 38.8 % . [facility] MCH Auto (RBC) [Entitic mass ]Ordered By: Gregory Rangel on 04-05-2023 MCH (RBC) [Entitic mass] 27.2 pg 24.7-34.3 [facility] MCHC Auto (RBC) [Mass/Vol]Or dered By: Gregory Rangel on 04-05-2023 MCHC (RBC) [Mass/Vol] 32.7 g/dL 32.0-35.0 [facility] MCV Auto (RBC) [Entitic vol] Ordered By: Gregory Rangel on 04-05-2023 MCV (RBC) [Entitic vol] 83.4 fL 80-100 [facility] Monocyte distribution width [Entitic volume] in Blood by AutomatedOrdered By: Gregory Rangel on 04-05-2023 Monocyte distribution width Auto (Bld) [Entitic vol] 19.16 % 0.00-20.00 [facility] Monocytes Auto (Bld) [#/Vol] Ordered By: Gregory Rangel on 04-05-2023 Monocytes (Bld) [#/Vol] 0.5 10*3/uL 0.0-0.8 [facility] Monocytes/100 WBC Auto (Bld) Ordered By: Gregory Rangel on 04-05-2023 Monocytes/100 WBC (Bld) 7.5 % . [facility] Natriuretic peptide B [Mass/ Vol]Ordered By: Gregory Rangel on 04-05-2023 Natriuretic peptide B (Bld) [Mass/Vol] 158.0 pg/mL 5-100 [facility] Neutrophils Auto (Bld) [#/Vo l]Ordered By: Gregory Rangel on 04-05-2023 Neutrophils (Bld) [#/Vol] 3.4 10*3/uL 1.8-7.7 [facility] Neutrophils/100 WBC Auto (Bl d)Ordered By: Gregory Rangel on 04-05-2023 Neutrophils/100 WBC (Bld) 51.9 % . [facility] No Panel InformationOrdered By: Gregory Rangel on 04-05-2023 Estimated GFR (CKD-EPI) > 60.0 mL/Min [facility] Creatinine Clearance (Chem 54.90 [facility] Nucleated erythrocytes [Pres ence] in Blood by Automated countOrdered By: Gregory Rangel on 04-05-2023 Nucleated RBC Auto Ql (Bld) 0.1 /100{WBC} 0-0.5 [facility] Partial Thromboplastin Timeo n 04-05-2023 aPTT Coag (Bld) [Time] 27.9 s Normal 25.1-36.5 [facility] Comment on above: Result Comment: A he matocrit value greater than 55% may lead to inaccurate results in coagulation testing. Patients having hematocrit values >55% require a special collection tube for coagulation studies. Please contact the laboratory at [phone] for redraw instructions. PERFORMED BY: [facility] [address] [place] [address] PATHOLOGIST GASOLINE ATTENDANT LYUDMILA GIANG M.D. Performed By: #### G LUVALERIANO #### Point of Care testing , Platelet mean volume Auto (B ld) [Entitic vol]Ordered By: Gregory Rangel on 04-05-2023 Platelet mean volume (Bld) [Entitic vol] 6.6 fL 6.3-10.7 [facility] Platelets Auto (Bld) [#/Vol] Ordered By: Gregory Rangel on 04-05-2023 Platelets (Bld) [#/Vol] 312 10*3/uL 150-450 [facility] Potassium [Moles/volume] in Serum or PlasmaOrdered By: Gregory Rangel on 04-05-2023 Potassium [Moles/Vol] 3.5 mmol/L 3.5-5.1 [facility] Protein [Mass/volume] in Ser um or PlasmaOrdered By: Gregory Rangel on 04-05-2023 Protein [Mass/Vol] 7.0 g/dL 6.4-8.9 [facility] Prothrombin Time INRon 04-05 INR Coag (PPP) [Relative time] 1.0 {INR} Normal [facility] Comment on above: Result Comment: INR Therapeutic Range A) Pre- and Peroperative OAT started two weeks before surgery. NOT HIP SURGERY: 1.5 - 2.5 HIP SURGERY: 2 - 3 B) Primary and secondary prevention of venous THROMBOSIS: 2 - 3 C) Active venous thrombosis, pulmonary embolism and prevention of recurrent venous thrombosis: 2 - 3 D) Prevention of arterial thromboembolism including patients with mechanical heart valves: 3 - 4.5 Performed By: #### G LULS #### Point of Care testing , PT Coag (PPP) [Time] 11.9 s Normal 9.0-12.9 [facility] Comment on above: Result Comment: A he matocrit value greater than 55% may lead to inaccurate results in coagulation testing. Patients having hematocrit values >55% require a special collection tube for coagulation studies. Please contact the laboratory at [phone] for redraw instructions. Performed By: #### G LULS #### Point of Care testing , Prothrombin time (PT)Ordered By: Gregory Rangel on 04-05-2023 PT Coag (PPP) [Time] 11.9 s 9.0-12.9 [facility] Comment on above: A hematocrit value g reater than 55% may lead to inaccurate results in coagulation testing. Patients having hematocrit values >55% require a special collection tube for coagulation studies. Please contact the laboratory at [phone] for redraw instructions. RBC Auto (Bld) [#/Vol]Ordere d By: Gregory Rangel on 04-05-2023 RBC (Bld) [#/Vol] 4.28 10*6/uL 3.60-5.00 [facility] Serum or plasma albumin/glob ulin mass ratioOrdered By: Gregory Rangel on 04-05-2023 Albumin/Globulin [Mass ratio] 1.8 {ratio} [facility] Serum or plasma anion gap de terminationOrdered By: Gregory Rangel on 04-05-2023 Anion gap [Moles/Vol] 17.4 mmol/L 6.0-15.0 [facility] Serum or plasma non-glucuron idated bilirubin measurement (mass/volume)Ordered By: Gregory Rangel on 04-05-2023 Bilirubin.indirect [Mass/Vol] 0.4 mg/dL [facility] Sodium [Moles/volume] in Ser um or PlasmaOrdered By: Gregory Rangel on 04-05-2023 Sodium [Moles/Vol] 139 mmol/L 136-145 [facility] Troponin I High Sensitivityo n 04-05-2023 Troponin I High Sensitivity 18.5 pg/mL High 0.0-15.0 [facility] Comment on above: Result Comment: PERF ORMED BY: [place] [address] PATHOLOGIST GASOLINE ATTENDANT LYUDMILA GIANG M.D. Performed By: #### L YTES, CREAT, CBC, BUN #### [address] Troponin I High Sensitivity 6.1 pg/mL Normal 0.0-15.0 [facility] Comment on above: Result Comment: PERF ORMED BY: [place] [phone] PATHOLOGIST GASOLINE ATTENDANT LYUDMILA GIANG M.D. Performed By: #### G LULS #### Point of Care testing , Troponin I.cardiac [Mass/vol ume] in Serum or Plasma by Detection limit <= 0.01 ng/Ordered By: Jordan Hare on 04-05-2023 Troponin I.cardiac DL <= 0.01 ng/mL [Mass/Vol] 18.5 pg/mL 0.0-15.0 [facility] Urea nitrogen [Mass/volume] in Serum or PlasmaOrdered By: Gregory Rangel on 04-05-2023 Urea nitrogen [Mass/Vol] 20 mg/dL 01-31 [facility] WBC Auto (Bld) [#/Vol]Ordere d By: Gregory Rangel on 04-05-2023 WBC (Bld) [#/Vol] 6.6 10*3/uL 3.8-11.6 [facility] CNPNon 04-04-2023 CNPN Normal [facility] CNOVon 04-03-2023 CNOV Normal [facility] CNPNon 04-03-2023 CNPN Normal [facility] CNOVon 03-29-2023 CNOV Normal [facility] CNPNon 03-27-2023 CNPN Normal [facility] CNCNPATEDon 03-22-2023 CNCNPATED Normal [facility] CNNURSEon 03-22-2023 CNNURSE Normal [facility] CNOVon 03-22-2023 CNOV Normal [facility] CNOVSPon 03-22-2023 CNOVSP Normal [facility] CNPNon 03-21-2023 CNPN Normal [facility] ANES POSTPROC EVALon 023 ANES POSTPROC EVAL HNO ID: [id number] Author: David Carpenter MD Service: Anesthesiology Author Type: Physician Type: Anesthesia Postprocedure Evaluation Filed: 03/16/2023 1:44 PM Note Text: POST ANESTHESIA EVALUATION NOTE : 1955 Procedure Summary Date: 03/16/23 Room / Location: Procedures Anesthesia Start: 1254 Anesthesia Stop: 1306 Procedure: SIGMOIDOSCOPY Diagnosis: (Preoperative assessment) Scheduled Providers: Laisha Singer MD; David Carpenter MD; Amina Munoz AA; Dk Vargas RN Responsible Provider: David Carpenter MD Anesthesia Type: MAC ASA Status: 2 Anesthesia Type: MAC Last Vitals Vitals Value Taken Time BP 96/81 03/16/23 1330 Temp 36.3 ?C (97.4 ?F) 03/16/23 1307 HR SpO2 66 03/16/23 1330 Resp 18 03/16/23 1330 SpO2 100 % 03/16/23 1330 Post Anesthesia Patient Status Patient Evaluation: PACU. PACU/ICU Patient Condition: stable. Anticipated Disposition: phase 2 then home. Neurological Status: aware and responsive. Pulmonary Status: breathing comfortably on room air Airway Control: returned to baseline unsupported. Cardiovascular Status: stable. Pain Management: satisfactory to patient Postoperative Hydration: acceptable. Intraoperative Events: no significant anesthesia events Recommendation: continue current plan of care. Anesthesia Observations No Documentation SIGNATURE: David Carpenter MD PATIENT NAME: Evan Gill DATE: March 16, 2023 TIME: 1:44 PM CSN: [id number] [facility] ANES PRE-OPon 03-16-2023 ANES PRE-OP HNO ID: [id number] Author: David Carpenter MD Service: Anesthesiology Author Type: Physician Type: Anesthesia Preprocedure Evaluation Filed: 03/16/2023 12:53 PM Note Text: ANESTHESIOLOGY DAY OF SURGERY NOTE : 1955 Procedure Information Anesthesia Start Date/Time: 03/16/23 1251 Scheduled providers: Laisha Singer MD; David Carpenter MD; Amina Munoz AA; Dk Vargas RN Procedure: SIGMOIDOSCOPY Location: Procedures Estimated body mass index is 24.45 kg/m? as calculated from the following: Height as of 03/14/23: 160 cm (5' 3 ). Weight as of 03/14/23: 62.6 kg (138 lb). Most recent hematocrit and potassium results: No results found for this basename: HCT,HEMATOCRIT,K,POTASSIU M Relevant Problems NEURO-PSYCH (+) Personal history of malignant melanoma of skin I - PHYSICAL EVALUATION AIRWAY Patient intubated: No. Tracheostomy tube not present Mallampati: II. TM distance: >3 FB. Neck ROM: full. Mouth opening: adequate. Short neck: no. Thick neck: no Meehan present: no DENTAL Normal dental observations. Dental findings: teeth intact. Additional exam findings: no II - ANESTHESIA PLAN ASA Score: 2 Anesthetic Plan: MAC NPO Status: adequate Beta Tanya Monitoring Plan Monitoring plan: Standard ASA. Post Procedure Analgesic Plan Postoperative analgesic plan: parenteral or oral opioids. Informed Consent Anesthetic risks, benefits, alternatives, personnel and consent discussed: yes. Patient / Responsible Democrat agrees to proceed: yes Patient / Surrogate agrees to blood products: blood products not planned Significant changes in the patient condition since the History and Physical, not otherwise documented in primary service progress note: no. Potential Anesthesia issues that may suggest increased risk of complications or contraindication to planned procedure: none. Vitals Value Taken Time BP 115/61 03/16/23 1228 Pulse 68 03/16/23 1228 Resp 20 03/16/23 1228 Temp 36.4 ?C (97.6 ?F) 03/16/23 1228 SpO2 100 % 03/16/23 1228 Outpatient Medications as of 03/16/2023 Medication Sig - polyethylene glycol 3350 (MIRALAX) 17 gram/dose powder Take by mouth once daily. Dissolve dose in 4 - 8 ounces of liquid and take as directed. - vortioxetine (TRINTELLIX) 5 mg tablet Take 10 mg by mouth. - omeprazole (PRILOSEC) 40 mg capsule Take 1 capsule by mouth every afternoon. - oxybutynin ER (DITROPAN XL) 15 mg 24 hr Extended Rel Tab Take 15 mg by mouth. - amLODIPine-benazepril (LOTREL) 5-10 mg per capsule Take 1 capsule by mouth every morning. - meloxicam (MOBIC) 15 mg tablet Take 1 tablet by mouth every afternoon. - Magnesium 250 mg tab Take 500 mg by mouth. - potassium citrate 99 mg cap Take 1 tablet by mouth every morning. - aspirin, enteric coated (ASPIRIN, ENTERIC COATED) 81 mg EC tablet Take 81 mg by mouth once daily. - Lactobacillus acidophilus (PROBIOTIC ORAL) Take by mouth. - docosahexaenoic acid/epa (FISH OIL ORAL) Take by mouth. - calcium carbonate/vitamin d3(CALCIUM 600 WITH VITAMIN D3 600 MG (1,500 MG)-400 UNIT CAP) Take one(1) tablet three times daily. - venlafaxine hcl(EFFEXOR 75 MG TAB) Take one(1) tablet daily. - diclofenac sodium/misoprostol(ARTHRO GAUDENCIO 50 50 MG-200 MCG TAB) as directed Facility-Administered Medications as of 03/16/2023 Medication Dose Route Frequency - lactated ringers iv infusion 30 mL/hr INTRAVENOUS CONTINUOUS - lidocaine (PF) 10 mg/mL (1 %) 5 mg injection (XYLOCAINE) 0.5 mL INTRADERMAL ONCE I have interviewed and examined the patient. I have reviewed the medical record and/or the pre-anesthesia evaluation, pertinent labs, and test results. This contains updated information obtained within 48 hours of Surgery/Procedure. SIGNATURE: David Carpenter MD PATIENT NAME: Evan Gill DATE: March 16, 2023 TIME: 12:53 PM CSN: [id number] Normal [facility] Flexible Sigmoidoscopyon Flexible sigmoidoscopy [facility] Gastrointestinal Endoscopy Patient Name: Evan Gill Procedure Date: 03/16/2023 12:46 PM Date of : 1955 Admit Type: Outpatient Age: 67 Room: [place] [address] Gender: Female Note Status: Finalized Attending MD: Laisha Singer MD Procedure: Flexible Sigmoidoscopy Indications: Preoperative assessment Providers: Laisha Singer MD Patient Profile: Last Colonoscopy: 2022. Referring Physician: Laisha Singer MD (Referring MD) Medicines: Monitored Anesthesia Care Complications: No immediate complications. Estimated blood loss: Minimal. Requesting Provider: Procedure: Pre-Anesthesia Assessment: - Prior to the procedure, a History and Physical was performed, and patient medications and allergies were reviewed. The patient's tolerance of previous anesthesia was also reviewed. The risks and benefits of the procedure and the sedation options and risks were discussed with the patient. All questions were answered, and informed consent was obtained. Prior Anticoagulants: The patient has taken no anticoagulant or antiplatelet agents except for aspirin. ASA Grade Assessment: II - A patient with mild systemic disease. After reviewing the risks and benefits, the patient was deemed in satisfactory condition to undergo the procedure. After obtaining informed consent, the scope was passed under direct vision. The was introduced through the anus and advanced to the sigmoid colon. The flexible sigmoidoscopy was accomplished without difficulty. The patient tolerated the procedure well. The quality of the bowel preparation was good. Moderate Sedation: MAC anesthesia was administered by the anesthesia team. Total Procedure Duration: 0 hours 2 minutes 28 seconds Findings: The digital rectal exam revealed a 4 cm (diameter) hard rectal mass palpated 4 to 7 cm from the anal verge. The mass involving 75% of the lumen circumference including anterior, left and posterior. An infiltrative partially obstructing large mass was found in the mid rectum. The mass was partially circumferential (involving 75% of the lumen circumference). The mass measured four cm in length. In addition, its diameter measured thirty mm. Oozing was present. The mass spanned the 1st and 2nd rectal valves with approximately 3 cm between the anorectal ring and the distal extent of the mass. Non-bleeding internal hemorrhoids were found during endoscopy. The exam was otherwise without abnormality. Impression: - Rectal mass 4 to 8 cm from the anal verge. - Malignant partially obstructing tumor in the low to mid rectum. - Non-bleeding internal hemorrhoids. - The examination was otherwise normal. - No specimens collected. Recommendation: - Discharge patient to home. - Resume previous diet. - Continue present medications. - Return to my office after studies are complete. Procedure Code(s): --- Professional --- 77126, Sigmoidoscopy, flexible; diagnostic, including collection of specimen(s) by brushing or washing, when performed (separate procedure) Diagnosis Code(s): --- Professional --- K62.89, Other specified diseases of anus and rectum C20, Malignant neoplasm of rectum K56.690, Other partial intestinal obstruction K64.8, Other hemorrhoids Z01.818, Encounter for other preprocedural examination CPT copyright 2020 [employer]. All rights reserved. The codes documented in this report are preliminary and upon raw cheese worker review may be revised to meet current compliance requirements. Attending Participation: I was present and participated during the entire procedure, including non-guzman portions. Scope In: 12:59:14 PM Scope Out: 1:01:42 PM MD Laisha Quinteros MD 03/16/2023 1:07:58 PM This report has been signed electronically by Laisha Singer MD Number of Addenda: 0 Note Initiated On: 03/16/2023 12:46 PM Estimated Blood Loss: Estimated blood loss was minimal. Normal [facility] HISTORY PHYSICALon 3 HISTORY PHYSICAL HNO ID: [id number] Author: Laisha Singer MD Service: Colorectal Author Type: Physician Type: HANDP Filed: 03/16/2023 1:08 PM Note Text: UPDATED HISTORY AND PHYSICAL EXAMINATION SERVICE DATE: 03/16/2023 SERVICE TIME: 12:45 PM PHYSICAL EXAM MUST BE COMPLETED ON ADMISSION The History and Physical (completed in the past 30 days) has been reviewed and the patient has been examined. The contents accurately reflect the patient's condition with the following additions or revisions since the HANDP was completed. CV: RRR Pulm: no increased respiratory effort Examination indicates no changes. This HANDP can be found in the Electronic Medical Record dated today. SIGNATURE: Laisha Singer MD PATIENT NAME: Evan Gill DATE: March 16, 2023 TIME: 12:45 PM Normal [facility] SIGMOIDOSCOPYon 03-16-2023 [facility] ALLIED HEALTHon 03-15-2023 ALLIED HEALTH Normal [facility] MRI RECTUM WO/W IVCONon 09-0 MRI RECTUM WO/W IVCON Normal [facility] CNOVon 03-14-2023 CNOV Normal [facility] CNOVon 03-08-2023 CNOV Normal [facility] CNOVSPon 03-08-2023 CNOVSP Normal [facility] CNPNon 03-07-2023 CNPN Normal [facility] Blood Urea Nitrogenon 2022 Urea nitrogen [Mass/Vol] 17 mg/dL Normal 7-25 [facility] Comment on above: Performed By: #### G LULS #### Point of Care testing , CT abdomen pelvis w conon CT abdomen pelvis w [facility] [place] [address] CT Scan Report Signed Patient: Evan Gill MR#: [id number] : 1955 Acct:[id number] Age/Sex: 67 / F ADM Date: 03/06/23 Loc: Room: Type: [facility] Attending Dr: Tomi Greene MD Copies to: Tomi Greene MD Ordering Provider: Tomi Greene MD Date of Service: 03/06/23 CT/CT abdomen pelvis w con: Rectal mass, rule out metastases ([id number]) CT/CT chest w con: Rectal mass rule out metastases CT CHEST, ABDOMEN AND PELVIS WITH INTRAVENOUS CONTRAST: CLINICAL HISTORY: Newly diagnosed rectal mass on colonoscopy. COMPARISON: CT chest 06/02/2021 TECHNIQUE: TECHNIQUE: Spiral images were obtained through the chest, abdomen and pelvis following the administration of IV contrast. This CT exam was performed using one or more following dose reduction techniques: Automated exposure control, adjustment of the mA and/or kV according to patient size, or use of iterative reconstruction technique. FINDINGS: CT chest: Mediastinum:Thoracic aorta appears normal in caliber. Pulmonary trunk appears nondilated. No pleural effusion. No lymphadenopathy. The esophagus is grossly unremarkable. Lungs:Bibasilar scarring. Peripheral reticular changes without honeycombing. No consolidation pneumothorax or pleural effusion. No suspicious pulmonary nodule or mass. Soft tissues/Bones: Soft tissues demonstrate no acute findings. Osseous structures demonstrate degenerative change. CT abdomen and pelvis: Organs:Liver portal vein pancreas spleen and adrenal glands all appear unremarkable. Gallbladder has been removed. No enhancing renal mass or hydronephrosis. Abdominal aorta appears normal in caliber.[ GI: Stomach is grossly unremarkable. Small bowel appears nondilated. Appendix is normal. Abnormal wall thickening seen involving the rectum with adjacent prominent perirectal lymph nodes suspicious for local metastatic disease.[No obstruction. Pelvis:[Urinary bladder is grossly unremarkable. Uterus is grossly unremarkable. No adnexal mass.] Peritoneum/Retroperitoneu m:No free air, free fluid or lymphadenopathy.[ Abd wall/Bones:Abdominal wall demonstrates no acute findings. Osseous structures demonstrate degenerative changes. Bilateral pars defects L5-S1 with associated grade [address]/CT chest w con IMPRESSION: Rectal wall thickening with adjacent prominent lymph nodes suspicious for the patient's primary lesion with local metastatic disease. No CT evidence of distant metastatic disease is seen. Impression dictated by: Cayden Zamorano Jr., DLupisOLupis03/06/2023 2:31 PM Dictation Location: [place] [address] Transcribed By: [facility] 03/06/23 1431 Dictated By: Cayden Zamorano Jr, DO 03/06/23 1427 Signed By: 03/06/23 1431 Normal [facility] Creatinineon 03-06-2023 Creatinine [Mass/Vol] 0.52 mg/dL Low 0.60-1.20 [facility] Comment on above: Performed By: #### G LULS #### Point of Care testing , Creatinine Clr Calc Pharmacy 59.72 Normal [facility] Comment on above: Result Comment: PERF ORMED BY: [address] [place] [address] PATHOLOGIST GASOLINE ATTENDANT LYUDMILA GIANG M.D. Performed By: #### G LULS #### Point of Care testing , GFR/1.73 sq M.predicted MDRD (S/P/Bld) [Vol rate/Area] mL/min/{1.73_m2} Normal [facility] Comment on above: Performed By: #### G LULS #### Point of Care testing , Creatinine [Mass/volume] in Serum or PlasmaOrdered By: Tomi Greene on 03-06-2023 Creatinine [Mass/Vol] 0.52 mg/dL 0.60-1.20 [facility] Jake 03-06-2023 L ----- Specimen: [id number] Received: 03/06/23 Status: JESSICA Pat Num: [id number] Spec Type: Surgical Subm Dr: Tomi Greene MD Tissues: A Colon Biopsy (RECTL MASS BX) Procedures: HE/2, Gross/Micro L4, CDX2, CK20, CK 7, MLH1, MSH2, MSH6, PMS2 Age/ Patient Sex Location Account Attending Physician Evan Gill 67/F [id number] Tomi Greene MD SPEC NUM: [id number] RECD: 03/06/23 STATUS: JESSICA PAT NUM: [id number] PERLA: 03/06/23 DR: Tomi Greene MD ENTERED: 03/06/[address] [facility] DR: SPEC TYPE: Surgical DEPT: S ENTERED BY: [id number] RECV BY: [id number] ORDERED: HE/2, Gross/Micro L4, CDX2, CK20, CK 7, MLH1, MSH2, MSH6, PMS2 ORDERED: HE/2, Gross/Micro L4, CDX2, CK20, CK 7, MLH1, MSH2, MSH6, PMS2 Pathological Diagnosis Rectum, mass, biopsy: - 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 Specimen: [id number] Received: 03/06/23 Status: JESSICA Pat Num: [id number] Spec Type: Surgical Subm Dr: Tomi Greene MD Tissues: A Colon Biopsy (RECTL MASS BX) Procedures: HE/2, Gross/Micro L4, CDX2, CK20, CK 7, MLH1, MSH2, MSH6, PMS2 Patient: Evan Gill Demetrius [id number] (Continued) Specimen: [id number] Received: 03/06/23 (Continued) Signed (signature on file) Lucho Leonard MD 03/10/231021 Specimen: [id number] Received: 03/06/23 Status: JESSICA Pat Num: [id number] Spec Type: Surgical Subm Dr: Tomi Greene MD Tissues: A Colon Biopsy (RECTL MASS BX) Procedures: HE/2, Gross/Micro L4, CDX2, CK20, CK 7, MLH1, MSH2, MSH6, PMS2 Patient: Evan Gill [id number] (Continued) Specimen: [id number] Received: 03/06/23 (Continued) Clinical Information Change in bowel habits, bloody stools, gas Gross Description Received in formalin labeled with the patient's name, date of and rectal mass biopsy are six wong tissues averaging 0.3 x 0.3 x 0.2 cm. Entirely submitted in one cassette labeled A1. Microscopic Description Two H E slides reviewed. The microscopic examination confirms the diagnosis. CPT Codes 48728 Specimen: [id number] Received: 03/06/23 Status: JESSICA Pat Num: [id number] Spec Type: Surgical Subm Dr: Tomi Greene MD Tissues: A Colon Biopsy (RECTL MASS BX) Procedures: HE/2, Gross/Micro L4, CDX2, CK20, CK 7, MLH1, MSH2, MSH6, PMS2 Patient: Evan Gill [id number] (Continued) Signed (signature on file) Lucho Leonard MD 03/10/23 1022 Normal [facility] No Panel InformationOrdered By: Tomi Greene on 03-06-2023 Estimated GFR (CKD-EPI) > 60.0 mL/Min [facility] Creatinine Clearance (Chem 59.72 [facility] Serum or plasma carcinoembry onic antigen measurement (mass/volume)Ordered By: Tomi Greene on 03-06-2023 Carcinoembryonic Ag [Mass/Vol] 2.7 ng/mL 0.0-3.0 [facility] Urea nitrogen [Mass/volume] in Serum or PlasmaOrdered By: Tomi Greene on 03-06-2023 Urea nitrogen [Mass/Vol] 17 mg/dL 7 [facility] PAP ACOG PANEL 2: 30 to 65on 11-10-2022 . . Normal [facility] Comment on above: Performed By: #### [id number] #### [facility] [address] [place] [address] Dr. Ghulam Padilal Age Gdln ACOG Testing Comment Normal [facility] Comment on above: Result Comment: <21 or >65 or no age provided Performed By: #### [id number] #### [facility] [address] [place] [address] Dr. Ghulam Padilla DIAGNOSIS: Comment Normal [facility] Comment on above: Result Comment: NEGA TIVE FOR INTRAEPITHELIAL LESION OR MALIGNANCY. PREDOMINANCE OF COCCOBACILLI CONSISTENT WITH SHIFT IN VAGINAL JONATHAN IS PRESENT. Performed By: #### [id number] #### [facility] [address] [place] [address] Dr. Ghulam Padilla Methodology: Comment [facility] Comment on above: Result Comment: This liquid based ThinPrep(R) pap test was screened with the use of an image guided system. Performed By: #### 4 [id number] #### [facility] [address] [place] [address] Dr. Ghulam Padilla Note: Comment Normal [facility] Comment on above: Result Comment: The Pap smear is a screening test designed to aid in the detection of premalignant and malignant conditions of the uterine cervix. It is not a diagnostic procedure and should not be used as the sole means of detecting cervical cancer. Both false-positive and false-negative reports do occur. . Performed By: #### [id number] #### [facility] [address] [place] [address] Dr. Ghulam Padilla Performed by: Comment Normal [facility] Comment on above: Result Comment: Mitra Martinez, Computer Project Manager (ASCP) Performed By: #### [id number] #### [facility] [address] [place] [address] Dr. Ghulam Padilla Specimen adequacy: Comment Normal [facility] Comment on above: Result Comment: Sati sfactory for evaluation. Endocervical and/or squamous metaplastic cells (endocervical component) are present. Areas of partially obscuring inflammatory exudate are present. Performed By: #### 4 [id number] #### [facility] [address] [place] [address] Dr. Ghulam Padilla XR DEXA BONE DENSITYon 05-01 -2023 XR DEXA BONE DENSITY EXAMINATION: XR DEX A BONE DENSITY, 11/07/2022 8:47 AM EDT HISTORY: Menopause present COMPARISON: None. TECHNIQUE: Dual-energy X-ray absorptiometry (DEXA) bone density study performed for the axial skeleton. FINDINGS: SPINE ANALYSIS: Average bone mineral density is 0.951 g/cm2. T-score (standard deviation relative to young adult mean): -2.1 . HIP ANALYSIS: Lowest bone mineral density is within the right femoral trochanter, 0.603 g/cm2. T-score (standard deviation relative to young adult mean): -2.2 . IMPRESSION: [employer] Classification: Osteopenia - Moderate Fracture Risk Electronically authenticated by: ANI CAN Date: 2022-11-07 09:21 Normal [facility] Office Visit (Cardiology)on 10-26-2022 Follow-up visit Diagnoses/Problems Assessed Preoperative cardiovascular examination (V72.81) (Z01.810) Hypertension (401.9) (I10) Abnormal stress test (794.39) (R94.39) Overweight with body mass index (BMI) of 25 to 25.9 in adult (278.02,V85.21) (E66.3,Z68.25) Orders Overweight with body mass index (BMI) of 25 to 25.9 in adult Healthy Weight Tips; Status:Complete; Done: [id number] Some eating tips that can help you lose weight.; Status:Complete; Done: [id number] Preoperative cardiovascular examination IO EKG Electrocardiogram- 12 Lead; Status:Complete; Done: [id number] Patient Instructions Please bring all medicines, vitamins, and herbal supplements with you when you come to the office. Prescriptions will not be filled unless you are compliant with your follow up appointments or have a follow up appointment scheduled as per instruction of your physician. Refills should be requested at the time of your visit. Follow up as needed only patient cleared for surgery with Dr. Valle Chief Complaint EVAN GILL is being seen for a consultation for Charles WARD R Knee replacement 12/07/22. History of Present Illness Patient is here for cardiovascular risk for preoperative risk assessment. She is a 67-year-old with no prior cardiac history except hypertension who is scheduled to undergo surgery. Patient denies any previous history of coronary artery, congestive heart failure or valvular heart disease. She reports she was fairly active though she developed some issues. Advised that she continue to do her routine home chores. Able to climb 1-2 flight of stairs. She denies current chest pain, palpitation, lightheadedness, visual syncope. I have seen the patient back in 2017 for a brief 10-second atrial fibrillation noted during stress test. Stress test the patient was able to transfer 9 minutes. Patient had no recurrence. EKG is normal. Assessment 1. Preoperative assessment #1 surgery. Patient without cardiac symptoms, normal cardiac examination, functional class I with negative stress test 2 years back. Operative risk acceptable level 2. Hypertension controlled 3. Remote documentation of 10-second episode of atrial fibrillation plan 1. based on ACC/AHA guidelines the patient completely without the need for further testing. Preoperative risk is low and acceptable 2. We will follow in the future on as-needed basis Surgical History Problems History of Ankle surgery History of Cholecystectomy History of Complete colonoscopy Managed By: Cem VELASQUEZ, hCiki Davis (Gastroenterology) History of Excision melanoma History of Neuroplasty Current Meds Medication NameInstruction amLODIPine Besy-Benazepril HCl - 5-10 MG Oral CapsuleTAKE 1 CAPSULE BY MOUTH EVERY DAY Aspirin EC 81 MG Oral Tablet Delayed ReleaseTAKE 1 TABLET DAILY. Calcium 500 MG TABSTAKE 1 TABLET DAILY. Fish Oil CAPSTAKE 1 CAPSULE Daily Magnesium 500 MG TABSTake 1 tablet daily Meloxicam 15 MG Oral TabletTAKE 1 TABLET DAILY. Omeprazole 40 MG Oral Capsule Delayed ReleaseTAKE 1 CAPSULE Daily Oxybutynin Chloride ER 15 MG Oral Tablet Extended Release 24 HourTake 1 tablet daily Potassium 99 MG Oral TabletTAKE 1 TABLET DAILY. Probiotic CAPSUSE DIRECTED. Trintellix 5 MG Oral TabletTake 1 tablet daily Xanax 0.25 MG Oral TabletTAKE 1 TABLET Daily prn Allergies Medication No Known Drug Allergies Recorded By: Danika Patten; 10/25/2022 4:51:14 PM Social History Problems Never a smoker No caffeine use No illicit drug use Occasional alcohol use Review of Systems Constitutional: not feeling tired. Eyes: no eyesight problems. ENT: no hearing loss and no nosebleeds. Cardiovascular: no intermittent leg claudication and as noted in HPI. Respiratory: no chronic cough and no shortness of breath. Gastrointestinal: no change in bowel habits and no blood in stools. Genitourinary: no urinary frequency. Skin: no skin rashes. Neurological: no seizures and no frequent falls. Psychiatric: no depression and not suicidal. All other systems have been reviewed and are negative for complaint. Constitutional: not feeling tired. Cardiovascular: no intermittent leg claudication and as noted in HPI. Respiratory: no cough and no shortness of breath. Gastrointestinal: no change in bowel habits and no blood in stools. Integumentary: no skin rashes. Neurological: no seizures and no frequent falls. All other systems have been reviewed and are negative for complaint. Vitals Vital Signs Recorded: [id number] 02:49PMRecorded: [id number] 02:48PM [id number], LUE, Ybeddeo716, RUE, Sitting Vyotzhdgw25, LUE, Gbrhzmm68, RUE, Sitting Heart Rate76, Apical Height5 ft 4.5 in Exyhrf660 lb BMI Vbroeuwxgi33.86 kg/m2 BSA Calculated1.76 Tobacco Useb) No PHQ-2 #1. Over the last 2 weeks have you felt down, depressed or hopeless? (If yes, answer PHQ-9 below)No PHQ-2 #2. Over the last 2 weeks have you felt little interest or pleasure in doing things? (If yes, (more content not included)... Normal [facility] Tobacco Screening.on 023 Adult depression screening assessment No [facility] 250 DO Work Phone: Fall risk assessment a) No falls within the last year [facility] 250 DO Work Phone: Tobacco use status CP b) No [facility] 250 DO Work Phone: XR knee RT 4V*on 08-18-2022 XR knee RT 4V* [facility] [email or web address] Other XR knee RT 4V* [facility] Main [facility] [email or web address] Other XR knee RT 4V* [address] [facility] [email or web address] Other XR knee RT 4V* [place] [address] No rt [employer] Other XR knee RT 4V* XRay Report [employer] Other XR knee RT 4V* Signed [employer] Other XR knee RT 4V* Patient: Kathryn Gill MR#: [id number] [employer] Other XR knee RT 4V* 89 [employer] Other XR knee RT 4V* : 1955 Acct:[id number] [employer] Other XR knee RT 4V* Age/Sex: 66 / F ADM Date: 08/18/22 [employer] Other XR knee RT 4V* Loc: [facility] Room: Type : [facility] [employer] Other XR knee RT 4V* Attending Dr: Caroline Rangel II, MD [employer] Other XR knee RT 4V* Copies to: Caroline Rangel MD [employer] Other XR knee RT 4V* Ordering Provider: Raphael Rangel MD [employer] Other XR knee RT 4V* Date of Service: 08/18/22 [employer] Other XR knee RT 4V* XR/XR knee RT 4V*: Bilateral primary osteoarthritis of knee [employer] Other XR knee RT 4V* XR knee RT 4V* 023 8:00 AM [employer] Other XR knee RT 4V* SIGNS AND SYMPTOMS: Right chronic lateral knee pain [employer] Other XR knee RT 4V* PROTOCOL: Frontal, lateral, and oblique radiographs of the right knee [employer] Other XR knee RT 4V* COMPARISON: 02/11/2022 [employer] Other XR knee RT 4V* FINDINGS: [employer] Other XR knee RT 4V* There is severe narr owing of the medial weightbearing joint space with an osteochondral defect [employer] Other XR knee RT 4V* present. This appear s to measure at least 11 mm in AP dimension. Degenerative changes are worse when [employer] Other XR knee RT 4V* compared to the prio r exam. No definite radiopaque foreign body. There is a moderate joint effusion. [employer] Other XR knee RT 4V* No soft tissue swell ing. There is mild patellofemoral joint space loss. [employer] Other XR knee RT 4V* X R/XR knee RT 4V* [employer] Other XR knee RT 4V* IMPRESSION: [employer] Other XR knee RT 4V* compared to the prio r exam. [employer] Other XR knee RT 4V* No definite radiopaq ue foreign body. [employer] Other XR knee RT 4V* Impression dictated by: Dheeraj Montesinos M.D.08/18/2022 10:52 AM [employer] Other XR knee RT 4V* Dictation Location: [place] [address] [employer] Other XR knee RT 4V* Transcribed By: NEWTON 08/18/22 1052 [employer] Other XR knee RT 4V* Dictated By: Dheeraj Montesinos II, MD 08/18/22 1049 [employer] Other XR knee RT 4V* Signed By: [employer] Other XR knee RT 4V* 08/18/22 1052 [email or web address] Other Albumin [Mass/volume] in Ser um or PlasmaOrdered By: Charles Bazzi on 05-25-2022 Albumin [Mass/Vol] 3.6 g/dL 3.2-5.5 [facility] Basophils Auto (Bld) [#/Vol] Ordered By: Charles Bazzi on 05-25-2022 Basophils (Bld) [#/Vol] 0.1 10*3/uL 0.0-0.2 [facility] Basophils/100 WBC Auto (Bld) Ordered By: Charles Bazzi on 05-25-2022 Basophils/100 WBC (Bld) 0.7 % . [facility] Cholesterol [Mass/volume] in Serum or PlasmaOrdered By: Charles Bazzi on 05-25-2022 Cholesterol [Mass/Vol] 181 mg/dL 140-200 [facility] Comment on above: Chol less than 200 m g/dl low riskChol 201-239 mg/dl borderline riskChol 240 mg/dl and greater high risk Cholesterol in LDL Calc [Mas s/Vol]Ordered By: Charles Bazzi on 05-25-2022 Cholesterol in LDL [Mass/Vol] 97 mg/dL 0-100 [facility] Comment on above: LDL ATP III CLASSIFI CATIONLDL less than 100 mg/dL OptimalLDL 100-129 mg/dL Near or above optimalLDL 130-159 mg/dL Borderline highLDL 160-189 mg/dL HighLDL greater than 189 mg/dL Very high Cholesterol in VLDL Calc [Ma ss/Vol]Ordered By: Charles Bazzi on 05-25-2022 Cholesterol in VLDL [Mass/Vol] 13 mg/dL [facility] Creatinine and Glomerular fi ltration rate.predicted panel (S/P/Bld)Ordered By: Charles Bazzi on 05-25-2022 Creatinine [Mass/Vol] 0.69 mg/dL 0.44-1.03 [facility] Eosinophils Auto (Bld) [#/Vo l]Ordered By: Charles Bazzi on 05-25-2022 Eosinophils (Bld) [#/Vol] 0.2 10*3/uL 0.0-0.45 [facility] Eosinophils/100 WBC Auto (Bl d)Ordered By: Charles Bazzi on 05-25-2022 Eosinophils/100 WBC (Bld) 2.3 % . [facility] Erythrocyte distribution wid th Auto (RBC) [Ratio]Ordered By: Charles Bazzi on 05-25-2022 Erythrocyte distribution width (RBC) [Ratio] 15.5 % 11.9-15.3 [facility] Estimated glomerular filtrat ion rate (GFR) non- AmericanOrdered By: Charles Bazzi on 05-25-2022 GFR/1.73 sq M.predicted among non-blacks MDRD (S/P/Bld) [Vol rate/Area] > 60 mL/Min [facility] Globulin Calc (S) [Mass/Vol] Ordered By: Charles Bazzi on 05-25-2022 Globulin (S) [Mass/Vol] 2.7 g/dL [facility] Hematocrit Auto (Bld) [Volum e fraction]Ordered By: Charles Bazzi on 05-25-2022 Hematocrit (Bld) [Volume fraction] 37.0 % 34.0-46.4 [facility] Hemoglobin [Mass/volume] in BloodOrdered By: Charles Bazzi on 05-25-2022 Hemoglobin (Bld) [Mass/Vol] 12.0 g/dL 11.8-15.4 [facility] Laboratory - Hematology and Cell countsOrdered By: Charles Bazzi on 05-25-2022 Nucleated RBC/100 WBC (Bld) [Ratio] 0.0 % 0-0.5 [facility] Leukocytes [#/volume] in Blo od by Automated countOrdered By: Charles Bazzi on 05-25-2022 WBC (Bld) [#/Vol] 8.2 10*3/uL 4.5-11.0 [facility] Lymphocytes Auto (Bld) [#/Vo l]Ordered By: Charles Bazzi on 05-25-2022 Lymphocytes (Bld) [#/Vol] 2.9 10*3/uL 1.00-4.8 [facility] Lymphocytes/100 WBC Auto (Bl d)Ordered By: Charles Bazzi on 05-25-2022 Lymphocytes/100 WBC (Bld) 35.1 % . [facility] MCH Auto (RBC) [Entitic mass ]Ordered By: Charles Bazzi on 05-25-2022 MCH (RBC) [Entitic mass] 29.1 pg 24.7-34.3 [facility] MCHC Auto (RBC) [Mass/Vol]Or dered By: Charles Bazzi on 05-25-2022 MCHC (RBC) [Mass/Vol] 32.4 g/dL 32.0-35.0 [facility] MCV Auto (RBC) [Entitic vol] Ordered By: Charles Bazzi on 05-25-2022 MCV (RBC) [Entitic vol] 89.9 fL 80-100 [facility] Monocytes Auto (Bld) [#/Vol] Ordered By: Charles Bazzi on 05-25-2022 Monocytes (Bld) [#/Vol] 0.6 10*3/uL 0.0-0.8 [facility] Monocytes/100 WBC Auto (Bld) Ordered By: Charles Bazzi on 05-25-2022 Monocytes/100 WBC (Bld) 7.7 % . [facility] Neutrophils Auto (Bld) [#/Vo l]Ordered By: Charles Bazzi on 05-25-2022 Neutrophils (Bld) [#/Vol] 4.4 10*3/uL 1.8-7.7 [facility] Neutrophils/100 WBC Auto (Bl d)Ordered By: Charles Bazzi on 05-25-2022 Neutrophils/100 WBC (Bld) 54.2 % . [facility] No Panel InformationOrdered By: Charles Bazzi on 05-25-2022 Estimated GFR () > 60 mL/Min [facility] Comment on above: GFR estimated refere nce range: According to KDOQI guidelines, <60 ml/min/1.73m2 is sufficient to diagnose a patient with chronic kidney disease. Pharmacy Creatinine Clearance (Chem N/A [facility] Platelet mean volume Auto (B ld) [Entitic vol]Ordered By: Charles Bazzi on 05-25-2022 Platelet mean volume (Bld) [Entitic vol] 7.2 fL 6.3-10.7 [facility] Platelets Auto (Bld) [#/Vol] Ordered By: Charles Bazzi on 11-16-2022 Platelets (Bld) [#/Vol] 441 10*3/uL 150-450 [facility] Protein [Mass/volume] in Ser um or PlasmaOrdered By: Charles Bazzi on 05-25-2022 Protein [Mass/Vol] 6.3 g/dL 6.1-7.9 [facility] RBC Auto (Bld) [#/Vol]Ordere d By: Charles Bazzi on 05-25-2022 RBC (Bld) [#/Vol] 4.12 10*6/uL 3.60-5.00 [facility] Serum or plasma alanine ruth otransferase measurement without P-5'-P (enzymatic activiOrdered By: Charles Bazzi on 05-25-2022 ALT No additional P-5'-P [Catalytic activity/Vol] 19 U/L 10-60 [facility] Serum or plasma albumin/glob ulin mass ratioOrdered By: Charles Bazzi on 05-25-2022 Albumin/Globulin [Mass ratio] 1.3 {ratio} [facility] Serum or plasma alkaline argelia sphatase measurement (enzymatic activity/volume)Ordered By: Charles Bazzi on 05-25-2022 ALP [Catalytic activity/Vol] 68 U/L 32-92 [facility] Serum or plasma anion gap de terminationOrdered By: Charles Bazzi on 05-25-2022 Anion gap [Moles/Vol] 7.6 mmol/L 6.0-15.0 [facility] Serum or plasma aspartate am inotransferase measurement (enzymatic activity/volume)Ordered By: Charles Bazzi on 05-25-2022 AST [Catalytic activity/Vol] 15 U/L 10-42 [facility] Serum or plasma calcium yogi urement (mass/volume)Ordered By: Charles Bazzi on 05-25-2022 Calcium [Mass/Vol] 9.0 mg/dL 8.2-10.2 [facility] Serum or plasma chloride radha surement (moles/volume)Ordered By: Charles Bazzi on 05-25-2022 Chloride [Moles/Vol] 106 mmol/L 95-114 [facility] Serum or plasma glucose yogi urement (mass/volume)Ordered By: Charles Bazzi on 05-25-2022 Glucose [Mass/Vol] 91 mg/dL 70-100 [facility] Comment on above: ADA recommended refe rence rangeRandom Glucose Reference Range is dependent on time and content of last meal. Glucose of more than 200 mg/dL in a nonstressed, ambulatory subject supports the diagnosis of Diabetes Mellitus. Serum or plasma high density lipoprotein (HDL) cholesterol measurementOrdered By: Charles Bazzi on 05-25-2022 Cholesterol in HDL [Mass/Vol] 70 mg/dL 35-85 [facility] Comment on above: HDL CHOL ATP-III CLA SSIFICATION Cardiovascular RiskHDL > or equal to 60 mg/dL LOWHDL < 40 mg/dL HIGH Serum or plasma potassium me asurement (moles/volume)Ordered By: Charles Bazzi on 05-25-2022 Potassium [Moles/Vol] 4.2 mmol/L 3.5-5.1 [facility] Serum or plasma sodium measu rement (moles/volume)Ordered By: Charles Bazzi on 05-25-2022 Sodium [Moles/Vol] 136 mmol/L 136-146 [facility] Serum or plasma total biliru bin measurement (mass/volume)Ordered By: Charles Bazzi on 05-25-2022 Bilirubin [Mass/Vol] 0.4 mg/dL 0.3-1.2 [facility] Serum or plasma total carbon dioxide measurement (moles/volume)Ordered By: Charles Bazzi on 05-25-2022 CO2 [Moles/Vol] 26.6 mmol/L 22.0-30.0 [facility] Serum or plasma total choles terol/high density lipoprotein (HDL) cholesterol mass ratOrdered By: Charles Bazzi on 05-25-2022 Cholesterol.total/Chol esterol in HDL [Mass ratio] 2.6 {ratio} <5.0 [facility] Serum or plasma urea nitroge n measurement (mass/volume)Ordered By: Charles Bazzi on 05-25-2022 Urea nitrogen [Mass/Vol] 20 mg/dL 9-23 [facility] TSH DL <= 0.005 mIU/L QnOrde red By: Charles Bazzi on 05-25-2022 TSH Qn 2.62 m[IU]/L 0.45-5.33 [facility] Triglyceride [Mass/volume] i n Serum or PlasmaOrdered By: Charles Bazzi on 05-25-2022 Triglyceride [Mass/Vol] 68 mg/dL 35-149 [facility] Comment on above: TRIG ATP III CLASSIF ICATIONTRIG less than 150 mg/dL NormalTRIG 150-199 mg/dL Borderline highTRIG 200-500 mg/dL High TRIG greater than 500 mg/dL Very highStandard traceable to the Center for Disease Conrtrol and Prevention (CDC) test method. Vital Signs Date Time Vital Sign Value Performing Clinician Facility 02-06-2024 11:150400 Body height 162.6 cm Darnell Corona MD Work Phone: [facility] 02-06-2024 11:15-0400 Body mass index (BMI) [Ratio] 25.61 kg/m2 Darnell Corona MD Work Phone: [facility] 02-06-2024 11:15-0400 Body temperature 97.7 [degF] Darnell Corona MD Work Phone: [facility] 02-06-2024 11:15-0400 Body weight 67.7 kg Darnell Corona MD Work Phone: [facility] 02-06-2024 11:15-0400 Diastolic blood pressure 87 mm[Hg] Darnell Corona MD Work Phone: [facility] 02-06-2024 11:15-0400 Heart rate 76 /min Darnell Corona MD Work Phone: [facility] 02-06-2024 11:15-0400 Respiratory rate 16 /min Darnell Corona MD Work Phone: [facility] 02-06-2024 11:15-0400 SaO2% (BldA) [Mass fraction] 98 % Darnell Corona MD Work Phone: [facility] 02-06-2024 11:15-0400 Systolic blood pressure 150 mm[Hg] Darnell Corona MD Work Phone: [facility] 01-09-2024 14:09-0400 Body mass index (BMI) [Ratio] 24.2 kg/m2 Laisha Singer MD Work Phone: [facility] 01-09-2024 14:09-0400 Body temperature 97.81 [degF] Laisha Singer MD Work Phone: [facility] 01-09-2024 14:09-0400 Body weight 63.96 kg Laisha Singer MD Work Phone: [facility] 01-09-2024 14:09-0400 Diastolic blood pressure 79 mm[Hg] Laisha Singer MD Work Phone: [facility] 01-09-2024 14:09-0400 Heart rate 64 /min Laisha Singer MD Work Phone: [facility] 01-09-2024 14:09-0400 SaO2% (BldA) [Mass fraction] 99 % Laisha Singer MD Work Phone: [facility] 01-09-2024 14:09-0400 Systolic blood pressure 131 mm[Hg] Laisha Singer MD Work Phone: [facility] 11-24-2023 15:29-0400 Body height 162.6 cm Brandie Salmeron APRN.WINDOWS CONSULTANT Work Phone: [facility] 11-24-2023 15:29-0400 Body mass index (BMI) [Ratio] 24.2 kg/m2 Brandie Salmeron COMPUTATIONAL BIOLOGIST.WINDOWS CONSULTANT Work Phone: [facility] 11-24-2023 15:29-0400 Body temperature 97.3 [degF] Brandie Salmeron COMPUTATIONAL BIOLOGIST.WINDOWS CONSULTANT Work Phone: [facility] 11-24-2023 15:29-0400 Body weight 63.96 kg Brandie Salmeron COMPUTATIONAL BIOLOGIST.WINDOWS CONSULTANT Work Phone: [facility] 11-24-2023 15:29-0400 Diastolic blood pressure 56 mm[Hg] Brandie Salmeron COMPUTATIONAL BIOLOGIST.WINDOWS CONSULTANT Work Phone: [facility] 11-24-2023 15:29-0400 Heart rate 57 /min Brandiejamal Salmeron COMPUTATIONAL BIOLOGIST.WINDOWS CONSULTANT Work Phone: [facility] 11-24-2023 15:29-0400 Systolic blood pressure 122 mm[Hg] Brandiejamal Salmeron COMPUTATIONAL BIOLOGIST.WINDOWS CONSULTANT Work Phone: [facility] 10-28-2023 13:26-0400 Body temperature 97.5 [degF] DO Charles Kuns Work Phone: [facility] 10-28-2023 13:26-0400 Diastolic blood pressure 69 mm[Hg] DO Charles Kuns Work Phone: [facility] 10-28-2023 13:26-0400 Heart rate 77 /min DO Charles Kuns Work Phone: [facility] 10-28-2023 13:26-0400 Respiratory rate 16 /min DO Charles Kuns Work Phone: [facility] 10-28-2023 13:26-0400 SaO2% (BldA) [Mass fraction] 100 % DO Charles Kuns Work Phone: [facility] 10-28-2023 13:26-0400 Systolic blood pressure 122 mm[Hg] DO Charles Kuns Work Phone: [facility] 10-28-2023 05:55-0400 Body weight 67.6 kg DO Charles Kuns Work Phone: [facility] 10-26-2023 15:42-0400 Body height 162.56 cm DO Charles Kuns Work Phone: [facility] 10-26-2023 03:21-0400 Diastolic blood pressure 64 mm[Hg] DO Charles Kuns Work Phone: [facility] 10-26-2023 03:21-0400 Heart rate 75 /min DO Charles Kuns Work Phone: [facility] 10-26-2023 03:21-0400 Respiratory rate 15 /min DO Charles Kuns Work Phone: [facility] 10-26-2023 03:21-0400 SaO2% (BldA) [Mass fraction] 96 % DO Charles Kuns Work Phone: [facility] 10-26-2023 03:21-0400 Systolic blood pressure 119 mm[Hg] DO Charles Kuns Work Phone: [facility] 10-26-2023 01:53-0400 Body temperature 98 [degF] DO Charles Kuns Work Phone: [facility] 10-25-2023 20:18-0400 Body height 162.56 cm DO Charles Kuns Work Phone: [facility] 10-25-2023 20:18-0400 Body weight 66.9 kg DO Charles Kuns Work Phone: [facility] 10-10-2023 10:42-0400 Body height 162.6 cm Darnell Corona MD Work Phone: [facility] 10-10-2023 10:42-0400 Body temperature 98.01 [degF] Darnell Corona MD Work Phone: [facility] 10-10-2023 10:42-0400 Body weight 63.7 kg Darnell Corona MD Work Phone: [facility] 10-10-2023 10:42-0400 Diastolic blood pressure 66 mm[Hg] Darnell Corona MD Work Phone: [facility] 10-10-2023 10:42-0400 Heart rate 92 /min Darnell Corona MD Work Phone: [facility] 10-10-2023 10:42-0400 Respiratory rate 16 /min Darnell Corona MD Work Phone: [facility] 10-10-2023 10:42-0400 SaO2% (BldA) [Mass fraction] 100 % Darnell Corona MD Work Phone: [facility] 10-10-2023 10:42-0400 Systolic blood pressure 122 mm[Hg] Darnell Corona MD Work Phone: [facility] 10-01-2023 12:00-0400 Body temperature 98.1 [degF] DO Charles Kuns Work Phone: [facility] 10-01-2023 12:00-0400 Diastolic blood pressure 68 mm[Hg] DO Charles Kuns Work Phone: [facility] 10-01-2023 12:00-0400 Heart rate 63 /min DO Charles Kuns Work Phone: [facility] 10-01-2023 12:00-0400 Respiratory rate 16 /min DO Charles Kuns Work Phone: [facility] 10-01-2023 12:00-0400 SaO2% (BldA) [Mass fraction] 98 % DO Charles Kuns Work Phone: [facility] 10-01-2023 12:00-0400 Systolic blood pressure 117 mm[Hg] DO Charles Kuns Work Phone: [facility] 10-01-2023 06:00-0400 Body weight 66 kg DO Charles Kuns Work Phone: [facility] 09-30-2023 04:29-0400 Body height 162.56 cm DO Charles Kuns Work Phone: [facility] 09-30-2023 04:08-0400 Body temperature 98.1 [degF] DO Charles Kuns Work Phone: [facility] 09-30-2023 04:08-0400 Diastolic blood pressure 59 mm[Hg] DO Charles Kuns Work Phone: [facility] 09-30-2023 04:08-0400 Heart rate 68 /min DO Charles Kuns Work Phone: [facility] 09-30-2023 04:08-0400 Respiratory rate 16 /min DO Charles Kuns Work Phone: [facility] 09-30-2023 04:08-0400 SaO2% (BldA) [Mass fraction] 96 % DO Charles Kuns Work Phone: [facility] 09-30-2023 04:08-0400 Systolic blood pressure 123 mm[Hg] DO Charles Kuns Work Phone: [facility] 09-30-2023 00:58-0400 Body height 162.56 cm DO Charles Kuns Work Phone: [facility] 09-30-2023 00:58-0400 Body weight 62.59 kg DO Charles Kuns Work Phone: [facility] 09-22-2023 14:30-0400 Body height 162.6 cm Brandie Salmeron APRN.WINDOWS CONSULTANT Work Phone: [facility] 09-22-2023 14:30-0400 Body temperature 97.3 [degF] Brandie Salmeron COMPUTATIONAL BIOLOGIST.WINDOWS CONSULTANT Work Phone: [facility] 09-22-2023 14:30-0400 Body weight 62.6 kg Brandie Salmeron COMPUTATIONAL BIOLOGIST.WINDOWS CONSULTANT Work Phone: [facility] 09-22-2023 14:30-0400 Diastolic blood pressure 68 mm[Hg] Brandie Salmeron COMPUTATIONAL BIOLOGIST.WINDOWS CONSULTANT Work Phone: [facility] 09-22-2023 14:30-0400 Heart rate 62 /min Brandie Salmeron COMPUTATIONAL BIOLOGIST.WINDOWS CONSULTANT Work Phone: [facility] 09-22-2023 14:30-0400 SaO2% (BldA) [Mass fraction] 100 % Brandie Salmeron COMPUTATIONAL BIOLOGIST.WINDOWS CONSULTANT Work Phone: [facility] 09-22-2023 14:30-0400 Systolic blood pressure 125 mm[Hg] Brandie Salmeron COMPUTATIONAL BIOLOGIST.WINDOWS CONSULTANT Work Phone: [facility] 08-11-2023 12:03-0500 Body height 165.1 cm Pacc 2 Work Phone: [facility] 08-11-2023 12:03-0500 Body temperature 97 [degF] Pacc 2 Work Phone: [facility] 08-11-2023 12:03-0500 Body weight 63.5 kg Pacc 2 Work Phone: [facility] 08-11-2023 12:03-0500 Diastolic blood pressure 75 mm[Hg] Pacc 2 Work Phone: [facility] 08-11-2023 12:03-0500 Heart rate 71 /min Pacc 2 Work Phone: [facility] 08-11-2023 12:03-0500 Respiratory rate 18 /min Pacc 2 Work Phone: [facility] 08-11-2023 12:03-0500 SaO2% (BldA) [Mass fraction] 99 % Pacc 2 Work Phone: [facility] 08-11-2023 12:03-0500 Systolic blood pressure 105 mm[Hg] Pacc 2 Work Phone: [facility] 07-25-2023 12:42-0500 Body height 165.1 cm Marcos Rios MD Work Phone: [facility] 07-25-2023 12:42-0500 Body mass index (BMI) [Ratio] 24.3 kg/m2 Marcos Rios MD Work Phone: [facility] 07-25-2023 12:42-0500 Body weight 66.22 kg Marcos Rios MD Work Phone: [facility] 07-25-2023 12:42-0500 Diastolic blood pressure 88 mm[Hg] Marcos Rios MD Work Phone: [facility] 07-25-2023 12:42-0500 Heart rate 66 /min Marcos Rios MD Work Phone: [facility] 07-25-2023 12:42-0500 Systolic blood pressure 138 mm[Hg] Marcos Rios MD Work Phone: [facility] 06-26-2023 15:25-0500 Diastolic blood pressure 58 mm[Hg] DO Charles Kuns Work Phone: [facility] 06-26-2023 15:25-0500 Heart rate 58 /min DO Charles Kuns Work Phone: [facility] 06-26-2023 15:25-0500 Respiratory rate 16 /min DO Charles Kuns Work Phone: [facility] 06-26-2023 15:25-0500 SaO2% (BldA) [Mass fraction] 97 % DO Charles Kuns Work Phone: [facility] 06-26-2023 15:25-0500 Systolic blood pressure 114 mm[Hg] DO Charles Kuns Work Phone: [facility] 06-26-2023 13:18-0500 Body height 162.56 cm DO Charles Kuns Work Phone: [facility] 06-26-2023 13:18-0500 Body mass index (BMI) [Ratio] 23.6 kg/m2 DO Charles Kuns Work Phone: [facility] 06-26-2023 13:18-0500 Body weight 62.59 kg DO Charles Kuns Work Phone: [facility] 06-26-2023 10:43-0500 Body temperature 98 [degF] DO Charles Kuns Work Phone: [facility] 06-14-2023 14:51-0500 Body height 162.6 cm Darnell Corona MD Work Phone: [facility] 06-14-2023 14:51-0500 Body temperature 98.01 [degF] Darnell Corona MD Work Phone: [facility] 06-14-2023 14:51-0500 Body weight 63.41 kg Darnell Corona MD Work Phone: [facility] 06-14-2023 14:51-0500 Diastolic blood pressure 56 mm[Hg] Darnell Corona MD Work Phone: [facility] 06-14-2023 14:51-0500 Heart rate 77 /min Darnell Corona MD Work Phone: [facility] 06-14-2023 14:51-0500 Respiratory rate 16 /min Darnell Corona MD Work Phone: [facility] 06-14-2023 14:51-0500 SaO2% (BldA) [Mass fraction] 94 % Darnell Corona MD Work Phone: [facility] 06-14-2023 14:51-0500 Systolic blood pressure 111 mm[Hg] Darnell Corona MD Work Phone: [facility] 06-08-2023 13:30-0500 Diastolic blood pressure 63 mm[Hg] Laisha Singer MD Work Phone: [facility] 06-08-2023 13:30-0500 Heart rate 73 /min Laisha Singer MD Work Phone: [facility] 06-08-2023 13:30-0500 Respiratory rate 17 /min Laisha Singer MD Work Phone: [facility] 06-08-2023 13:30-0500 SaO2% (BldA) [Mass fraction] 100 % Laisha Singer MD Work Phone: [facility] 06-08-2023 13:30-0500 Systolic blood pressure 111 mm[Hg] Laisha Singer MD Work Phone: [facility] 06-08-2023 13:11-0500 Body temperature 97.2 [degF] Laisha Singer MD Work Phone: [facility] 06-08-2023 12:40-0500 Body weight 62.6 kg Laisha Singer MD Work Phone: [facility] 05-29-2023 10:20-0500 Body temperature 96.69 [degF] JOSE MARIA Hudson MD Work Phone: [facility] 05-29-2023 10:20-0500 Body weight 62.6 kg JOSE MARIA Hudson MD Work Phone: [facility] 05-29-2023 10:20-0500 Diastolic blood pressure 78 mm[Hg] JOSE MARIA Hudson MD Work Phone: [facility] 05-29-2023 10:20-0500 Heart rate 64 /min JOSE MARIA Hudson MD Work Phone: [facility] 05-29-2023 10:20-0500 Respiratory rate 18 /min JOSE MARIA Hudson MD Work Phone: [facility] 05-29-2023 10:20-0500 SaO2% (BldA) [Mass fraction] 98 % JOSE MARIA Hudson MD Work Phone: [facility] 05-29-2023 10:20-0500 Systolic blood pressure 134 mm[Hg] JOSE MARIA Hudson MD Work Phone: [facility] 05-08-2023 10:59-0400 Body temperature 96.91 [degF] JOSE MARIA Hudson MD Work Phone: [facility] 05-08-2023 10:59-0400 Body weight 61.69 kg JOSE MARIA Hudson MD Work Phone: [facility] 05-08-2023 10:59-0400 Diastolic blood pressure 72 mm[Hg] JOSE MARIA Hudson MD Work Phone: [facility] 05-08-2023 10:59-0400 Heart rate 74 /min JOSE MARIA Hudson MD Work Phone: [facility] 05-08-2023 10:59-0400 Respiratory rate 16 /min JOSE MARIA Hudson MD Work Phone: [facility] 05-08-2023 10:59-0400 SaO2% (BldA) [Mass fraction] 95 % JOSE MARIA Hudson MD Work Phone: [facility] 05-08-2023 10:59-0400 Systolic blood pressure 116 mm[Hg] JOSE MARIA Hudson MD Work Phone: [facility] 05-01-2023 11:05-0400 Body temperature 96.69 [degF] JOSE MARIA Hudson MD Work Phone: [facility] 05-01-2023 11:05-0400 Body weight 62.05 kg JOSE MARIA Hudson MD Work Phone: [facility] 05-01-2023 11:05-0400 Diastolic blood pressure 63 mm[Hg] JOSE MARIA Hudson MD Work Phone: [facility] 05-01-2023 11:05-0400 Heart rate 61 /min JOSE MARIA Hudson MD Work Phone: [facility] 05-01-2023 11:05-0400 Respiratory rate 18 /min JOSE MARIA Hudson MD Work Phone: [facility] 05-01-2023 11:05-0400 SaO2% (BldA) [Mass fraction] 95 % JOSE MARIA Hudson MD Work Phone: [facility] 05-01-2023 11:05-0400 Systolic blood pressure 107 mm[Hg] JOSE MARIA Hudson MD Work Phone: [facility] 05-01-2023 08:45-0400 Body height 165.1 cm Charles Bazzi Other [employer] Other 05-01-2023 08:45-0400 Body mass index (BMI) [Ratio] 22.63 kg/m2 Charles Naveeds Other [employer] Other 05-01-2023 08:45-0400 Body weight 61.69 kg Charles Kuns Other [employer] Other 05-01-2023 08:45-0400 Diastolic blood pressure 64 mm[Hg] Charles Kuns Other [employer] Other 05-01-2023 08:45-0400 Respiratory rate 16 /min Charles Naveeds Other [employer] Other 05-01-2023 08:45-0400 SaO2% (BldA) [Mass fraction] 99 % Charles Naveeds Other [employer] Other 05-01-2023 08:45-0400 Systolic blood pressure 110 mm[Hg] Charles Kuns Other [employer] Other 04-28-2023 14:08-0400 Body height 162.6 cm Darnell Corona MD Work Phone: [facility] 04-28-2023 14:08-0400 Body temperature 97.7 [degF] Darnell Corona MD Work Phone: [facility] 04-28-2023 14:08-0400 Body weight 62.32 kg Darnell Corona MD Work Phone: [facility] 04-28-2023 14:08-0400 Diastolic blood pressure 49 mm[Hg] Darnell Corona MD Work Phone: [facility] 04-28-2023 14:08-0400 Heart rate 65 /min Darnell Corona MD Work Phone: [facility] 04-28-2023 14:08-0400 Respiratory rate 18 /min Darnell Corona MD Work Phone: [facility] 04-28-2023 14:08-0400 SaO2% (BldA) [Mass fraction] 99 % Darnell Corona MD Work Phone: [facility] 04-28-2023 14:08-0400 Systolic blood pressure 106 mm[Hg] Darnell Corona MD Work Phone: [facility] 04-24-2023 11:33-0400 Body temperature 96.69 [degF] JOSE MARIA Hudson MD Work Phone: [facility] 04-24-2023 11:33-0400 Body weight 62.08 kg JOSE MARIA Hudson MD Work Phone: [facility] 04-24-2023 11:33-0400 Diastolic blood pressure 58 mm[Hg] JOSE MARIA Hudson MD Work Phone: [facility] 04-24-2023 11:33-0400 Heart rate 72 /min JOSE MARIA Hudson MD Work Phone: [facility] 04-24-2023 11:33-0400 Respiratory rate 18 /min JOSE MARIA Hudson MD Work Phone: [facility] 04-24-2023 11:33-0400 SaO2% (BldA) [Mass fraction] 99 % JOSE MARIA Hudson MD Work Phone: [facility] 04-24-2023 11:33-0400 Systolic blood pressure 122 mm[Hg] JOSE MARIA Hudson MD Work Phone: [facility] 04-14-2023 10:05-0400 Body height 160.7 cm Darnell Corona MD Work Phone: [facility] 04-14-2023 10:05-0400 Body temperature 97.5 [degF] Darnell Corona MD Work Phone: [facility] 04-14-2023 10:05-0400 Body weight 62.69 kg Darnell Corona MD Work Phone: [facility] 04-14-2023 10:05-0400 Diastolic blood pressure 48 mm[Hg] Darnell Corona MD Work Phone: [facility] 04-14-2023 10:05-0400 Heart rate 71 /min Darnell Corona MD Work Phone: [facility] 04-14-2023 10:05-0400 Respiratory rate 16 /min Darnell Corona MD Work Phone: [facility] 04-14-2023 10:05-0400 SaO2% (BldA) [Mass fraction] 99 % Darnell Corona MD Work Phone: [facility] 04-14-2023 10:05-0400 Systolic blood pressure 107 mm[Hg] Darnell Corona MD Work Phone: [facility] 04-10-2023 11:10-0400 Body temperature 97.81 [degF] JOSE MARIA Hudson MD Work Phone: [facility] 04-10-2023 11:10-0400 Body weight 63.05 kg JOSE MARIA Hudson MD Work Phone: [facility] 04-10-2023 11:10-0400 Diastolic blood pressure 66 mm[Hg] JOSE MARIA Hudson MD Work Phone: [facility] 04-10-2023 11:10-0400 Heart rate 71 /min JOSE MARIA Hudson MD Work Phone: [facility] 04-10-2023 11:10-0400 Respiratory rate 18 /min JOSE MARIA Hudson MD Work Phone: [facility] 04-10-2023 11:10-0400 SaO2% (BldA) [Mass fraction] 99 % JOSE MARIA Hudson MD Work Phone: [facility] 04-10-2023 11:10-0400 Systolic blood pressure 104 mm[Hg] JOSE MARIA Hudson MD Work Phone: [facility] 04-06-2023 12:44-0400 Body temperature 97.9 [degF] DO Charles Kuns Work Phone: [facility] 04-06-2023 12:44-0400 Diastolic blood pressure 63 mm[Hg] DO Charles Kuns Work Phone: [facility] 04-06-2023 12:44-0400 Heart rate 77 /min DO Charles Kuns Work Phone: [facility] 04-06-2023 12:44-0400 Respiratory rate 14 /min DO Charles Kuns Work Phone: [facility] 04-06-2023 12:44-0400 SaO2% (BldA) [Mass fraction] 99 % DO Charles Kuns Work Phone: [facility] 04-06-2023 12:44-0400 Systolic blood pressure 98 mm[Hg] DO Charles Kuns Work Phone: [facility] 04-06-2023 06:13-0400 Body weight 60 kg DO Charles Kuns Work Phone: [facility] 04-05-2023 18:29-0400 Body height 160.02 cm DO Charles Kuns Work Phone: [facility] 04-05-2023 17:00-0400 Diastolic blood pressure 54 mm[Hg] DO Charles Kuns Work Phone: [facility] 04-05-2023 17:00-0400 Heart rate 70 /min DO Charles Kuns Work Phone: [facility] 04-05-2023 17:00-0400 Respiratory rate 16 /min DO Charles Kuns Work Phone: [facility] 04-05-2023 17:00-0400 SaO2% (BldA) [Mass fraction] 99 % DO Charles Kuns Work Phone: [facility] 04-05-2023 17:00-0400 Systolic blood pressure 107 mm[Hg] DO Charles Kuns Work Phone: [facility] 04-05-2023 13:02-0400 Body height 160.02 cm DO Charles Kuns Work Phone: [facility] 04-05-2023 13:02-0400 Body temperature 98.2 [degF] DO Charles Kuns Work Phone: [facility] 04-05-2023 13:02-0400 Body weight 61.23 kg DO Charles Kuns Work Phone: [facility] 04-03-2023 12:00-0400 Body temperature 96.69 [degF] NA Lauren VELASQUEZ Work Phone: [facility] 04-03-2023 12:00-0400 Body weight 62.6 kg JOSE MARIA Hudson MD Work Phone: [facility] 04-03-2023 12:00-0400 Diastolic blood pressure 67 mm[Hg] JOSE MARIA Hudson MD Work Phone: [facility] 04-03-2023 12:00-0400 Heart rate 63 /min JOSE MARIA Hudson MD Work Phone: [facility] 04-03-2023 12:00-0400 Respiratory rate 18 /min JOSE MARIA Hudson MD Work Phone: [facility] 04-03-2023 12:00-0400 SaO2% (BldA) [Mass fraction] 97 % JOSE MARIA Hudson MD Work Phone: [facility] 04-03-2023 12:00-0400 Systolic blood pressure 130 mm[Hg] JOSE MARIA Hudson MD Work Phone: [facility] 03-22-2023 14:30-0400 Body height 160.7 cm Darnell Corona MD Work Phone: [facility] 03-22-2023 14:30-0400 Body temperature 97.81 [degF] Darnell Corona MD Work Phone: [facility] 03-22-2023 14:30-0400 Body weight 61.78 kg Darnell Corona MD Work Phone: [facility] 03-22-2023 14:30-0400 Diastolic blood pressure 67 mm[Hg] Darnell Corona MD Work Phone: [facility] 03-22-2023 14:30-0400 Heart rate 65 /min Darnell Corona MD Work Phone: [facility] 03-22-2023 14:30-0400 Respiratory rate 16 /min Darnell Corona MD Work Phone: [facility] 03-22-2023 14:30-0400 SaO2% (BldA) [Mass fraction] 99 % Darnell Corona MD Work Phone: [facility] 03-22-2023 14:30-0400 Systolic blood pressure 126 mm[Hg] Darnell Corona MD Work Phone: [facility] 03-16-2023 13:30-0400 Diastolic blood pressure 81 mm[Hg] Laisha Singer MD Work Phone: [facility] 03-16-2023 13:30-0400 Heart rate 66 /min Laisha Singer MD Work Phone: [facility] 03-16-2023 13:30-0400 Respiratory rate 18 /min Laisha Singer MD Work Phone: [facility] 03-16-2023 13:30-0400 SaO2% (BldA) [Mass fraction] 100 % Laisha Singer MD Work Phone: [facility] 03-16-2023 13:30-0400 Systolic blood pressure 96 mm[Hg] Laisha Singer MD Work Phone: [facility] 03-16-2023 13:07-0400 Body temperature 97.39 [degF] Laisha Singer MD Work Phone: [facility] 03-06-2023 11:55-0400 Diastolic blood pressure 64 mm[Hg] DO Charles Kuns Work Phone: [facility] 03-06-2023 11:55-0400 Heart rate 79 /min DO Charles Kuns Work Phone: [facility] 03-06-2023 11:55-0400 Respiratory rate 18 /min DO Charles Kuns Work Phone: [facility] 03-06-2023 11:55-0400 SaO2% (BldA) [Mass fraction] 100 % DO Charles Kuns Work Phone: [facility] 03-06-2023 11:55-0400 Systolic blood pressure 125 mm[Hg] DO Charles Kuns Work Phone: [facility] 03-06-2023 09:03-0400 Body height 165.1 cm DO Charles Kuns Work Phone: [facility] 03-06-2023 09:03-0400 Body temperature 97.6 [degF] DO Charles Kuns Work Phone: [facility] 03-06-2023 09:03-0400 Body weight 61.23 kg DO Charles Kuns Work Phone: [facility] 10-31-2022 10:00-0400 Body height 165.1 cm Charles Kuns Other [employer] Other 10-31-2022 10:00-0400 Body mass index (BMI) [Ratio] 25.29 kg/m2 Charles Kuns Other [employer] Other 10-31-2022 10:00-0400 Body weight 68.95 kg Charles Kuns Other [employer] Other 10-31-2022 10:00-0400 Diastolic blood pressure 70 mm[Hg] Charles Naveeds Other [employer] Other 10-31-2022 10:00-0400 Respiratory rate 16 /min Charlesrocio Bazzi Other [employer] Other 10-31-2022 10:00-0400 SaO2% (BldA) [Mass fraction] 96 % Charlesrocio Bazzi Other [employer] Other 10-31-2022 10:00-0400 Systolic blood pressure 122 mm[Hg] Charlesrocio Lucios Other [employer] Other 10-26-2022 14:49-0400 Diastolic blood pressure 70 mm[Hg] Charles R Kuns Work Phone: [facility] [employer] DO Work Phone: 10-26-2022 14:49-0400 Systolic blood pressure 102 mm[Hg] Charles R Kuns Work Phone: [facility] [employer] DO Work Phone: 10-26-2022 14:48-0400 Body height 163.83 cm Charles R Kuns Work Phone: [facility] [employer] DO Work Phone: 10-26-2022 14:48-0400 Body mass index (BMI) [Ratio] 25.86 kg/m2 Charles R Kuns Work Phone: [facility] [employer] DO Work Phone: 10-26-2022 14:48-0400 Body surface area Derived from formula 1.76 m2 Charles R Kuns Work Phone: [facility] 250 DO Work Phone: 10-26-2022 14:48-0400 Body weight 69.4 kg Charles R Kuns Work Phone: [facility] 250 DO Work Phone: 10-26-2022 14:48-0400 Diastolic blood pressure 80 mm[Hg] Charles R Kuns Work Phone: [facility] 250 DO Work Phone: 10-26-2022 14:48-0400 Heart rate 76 /min Charles R Kuns Work Phone: [facility] 250 DO Work Phone: 10-26-2022 14:48-0400 Systolic blood pressure 110 mm[Hg] Charles R Kuns Work Phone: [facility] [employer] DO Work Phone: 10-03-2022 10:00-0400 Body height 165.1 cm Charlesrocio Lucios Other [employer] Other 10-03-2022 10:00-0400 Body mass index (BMI) [Ratio] 26.46 kg/m2 Charlesrocio Lucios Other [employer] Other 10-03-2022 10:00-0400 Body weight 72.12 kg Charles Kuns Other [employer] Other 10-03-2022 10:00-0400 Diastolic blood pressure 66 mm[Hg] Charles Kuns Other [employer] Other 10-03-2022 10:00-0400 Respiratory rate 16 /min Charles Kuns Other [employer] Other 10-03-2022 10:00-0400 SaO2% (BldA) [Mass fraction] 97 % Charles Bazzi Other [employer] Other 10-03-2022 10:00-0400 Systolic blood pressure 122 mm[Hg] Charles Bazzi Other [employer] Other 05-18-2022 12:45-0500 Body height 165.1 cm Caroline Juan Carlos II Other [employer] Other 05-18-2022 12:45-0500 Body mass index (BMI) [Ratio] 28.45 kg/m2 Caroline Bridgton II Other [employer] Other 05-18-2022 12:45-0500 Body weight 77.57 kg Caroline Bridgton II Other [employer] Other 05-11-2022 11:30-0400 Body height 165.1 cm Caroline Bridgton II Other [employer] Other 05-11-2022 11:30-0400 Body mass index (BMI) [Ratio] 28.45 kg/m2 Caroline Juan Carlos II Other [employer] Other 05-11-2022 11:30-0400 Body weight 77.57 kg Caroline Juan Carlos II Other [employer] Other Encounters Encounter Date Encounter Type Care Provider Facility Start: 02-21-2024 Telephone encounter Kari Frias Hematology/Oncology Comment on above: [employer] results Start: 02-07-2024 End: 02-07-2024 ambulatory DELFINO VARGAS V Not Available Start: 02-06-2024 Telephone encounter Darnell tinsley MD Work Phone: [facility] Comment on above: Future Appointment Refill Request Start: 02-06-2024 End: 02-06-2024 Patient encounter procedure Darnell Corona MD Work Phone: Hematology/Oncology Start: 02-06-2024 End: 02-06-2024 ambulatory Darnell Corona MD Work Phone: Hematology/Oncology Comment on above: History of rectal ca ncer (Primary Dx) Start: 01-16-2024 Telephone encounter Laisha frias MD Work Phone: Colorectal Surgery Comment on above: Patient Question Start: 01-12-2024 End: 01-12-2024 ambulatory DELFINO VARGAS V Not Available Start: 01-09-2024 End: 01-09-2024 ambulatory LAISHA SINGER Facility:[facility] Start: 01-09-2024 End: 01-09-2024 Patient encounter procedure Laisha Singer MD Work Phone: Colorectal Surgery Comment on above: Follow-up examinatio n after colorectal surgery (Primary Dx); Rectal cancer (HCC); Low anterior resection syndrome Start: 01-09-2024 End: 01-09-2024 ambulatory OSCAR VALLE Not Available Start: 01-08-2024 Telephone encounter Colleen Solorio RN Work Phone: Hematology/Oncology Comment on above: Care Coordination (L ab question) Start: 01-02-2024 End: 01-02-2024 ambulatory OSCAR VALLE Not Available Start: 12-26-2023 End: 12-26-2023 ambulatory OSCAR VALLE Not Available Start: 12-12-2023 Telephone encounter Darnell tinsley MD Work Phone: Radiation Oncology Comment on above: [place] Start: 11-24-2023 End: 11-24-2023 ambulatory LAISHA SINGER Facility:[facility] Start: 11-24-2023 End: 11-24-2023 Patient encounter procedure Brandie Salmeron APRN.CNP Work Phone: Colorectal Surgery Comment on above: Follow-up examinatio n after colorectal surgery (Primary Dx) Start: 11-20-2023 Admission to [facility] center Laisha Singer MD Work Phone: Colorectal Surgery Comment on above: Sharp, Burning Pain R Hip Area Start: 11-20-2023 ambulatory Laisha Singer MD Work Phone: Colorectal Surgery Start: 11-13-2023 Telephone encounter Colleen Solorio RN Work Phone: Hematology/Oncology Comment on above: Care Coordination (H ospital d/c follow up call) Start: 11-06-2023 End: 11-10-2023 Evaluation and management of inpatient CHARLESROCIO BAZZI Facility:[facility] Start: 11-06-2023 Telephone encounter Colleen Solorio RN Work Phone: Hematology/Oncology Comment on above: Care Coordination (L ab results) Patient Question Start: 10-30-2023 Admission to [facility] Laisha Singer MD Work Phone: Colorectal Surgery Comment on above: Frequent Bowel Obstr uctions/Plan Start: 10-30-2023 ambulatory Laisha Singer MD Work Phone: Colorectal Surgery Start: 10-26-2023 End: 10-28-2023 Evaluation and management of inpatient Charlesrocio Lucios Facility:[facility] Start: 10-26-2023 Non-patient / Non-visit DO Angela tt Naveeds Work Phone: [facility] Work Phone: Start: 10-26-2023 End: 10-28-2023 Evaluation and management of inpatient DO Charlesrocio Lucios Work Phone: [facility] [place] [address] Surgical Work Phone: Start: 10-25-2023 Telephone encounter Laisha firas MD Work Phone: Colorectal Surgery Comment on above: Patient Question; Me dication Question Start: 10-24-2023 End: 10-24-2023 ambulatory Charles Kuns Facility:[facility] Start: 10-24-2023 End: 10-24-2023 ambulatory DO Charles Kuns Work Phone: [facility] Work Phone: Start: 10-24-2023 End: 10-24-2023 Patient encounter procedure DO Charles Kuns Work Phone: [facility] [place] Work Phone: Start: 10-19-2023 Patient encounter procedure [facility] Provider [facility] Department Start: 10-17-2023 Telephone encounter Colleen Solorio RN Work Phone: Hematology/Oncology Comment on above: Care Coordination (s ignatera) Start: 10-10-2023 End: 10-10-2023 Patient encounter procedure Dheeraj De León LMT Work Phone: Hematology/Oncology Comment on above: Muscle soreness (Rosa raz Dx) Start: 10-10-2023 Non-patient / Non-visit DO Angela tt Kuns [facility] Work Phone: Start: 10-10-2023 End: 10-10-2023 ambulatory Lab/[place] Work Phone: Hematology/Oncology Comment on above: History of rectal ca ncer History of rectal ca ncer (Primary Dx) Start: 10-02-2023 End: 10-02-2023 ambulatory SUDHA B APLING Not Available Start: 09-30-2023 End: 10-01-2023 Evaluation and management of inpatient Charles Kuns Facility:[facility] Start: 09-30-2023 End: 10-01-2023 Non-patient / Non-visit DO Charles Kuns [facility] Phone[facility] Work Phone: Start: 09-30-2023 End: 10-01-2023 Evaluation and management of inpatient DO Charles Kuns Work Phone: [facility] Work Phone: Start: 09-22-2023 End: 09-22-2023 ambulatory LAISHA SINGER [facility] [facility] Start: 09-22-2023 End: 09-22-2023 Patient encounter procedure Brandie Salmeron COMPUTATIONAL BIOLOGIST.WINDOWS CONSULTANT Work Phone: Colorectal Surgery Comment on above: Follow-up examinatio n after colorectal surgery (Primary Dx) Start: 09-14-2023 ambulatory Laisha Singer MD Work Phone: Colorectal Surgery Comment on above: Conference recommend ations Start: 09-14-2023 E-mail encounter joey zachary caregiver Laisha Singer MD Work Phone: [facility] Start: 09-06-2023 Telephone encounter Colleen Solorio RN Work Phone: Hematology/Oncology Comment on above: Care Coordination (H ospital d/c follow up call) Care Coordination (F ollow up appointment) Start: 09-05-2023 Admission to [facility] Laisha Singer MD Work Phone: Colorectal Surgery Comment on above: Surgery pathology Start: 09-05-2023 E-mail encounter joey sharma caregiver Laisha Singer MD Work Phone: [facility] Start: 09-05-2023 Telephone encounter Laisha frias MD Work Phone: Colorectal Surgery Comment on above: Vice President Tax - O ther (Tumor board) Start: 09-04-2023 Non-patient / Non-visit DO Angela tt Kuns Work Phone: [facility] Physician [facility] Work Phone: Start: 09-03-2023 Non-patient / Non-visit DO Angela tt Kuns Work Phone: [facility]ician [facility] Work Phone: Start: 09-02-2023 Non-patient / Non-visit DO Angela tt Kuns Work Phone: [facility] Work Phone: Start: 09-01-2023 Telephone encounter Colleen Solorio RN Work Phone: Hematology/Oncology Comment on above: Care Coordination (H ospital d/c follow up call) Start: 09-01-2023 Non-patient / Non-visit DO Angela tt Kuns Work Phone: [facility] Work Phone: Start: 08-31-2023 End: 09-04-2023 Evaluation and management of inpatient CHARLES BAZZI Facility:[facility] Start: 08-31-2023 Non-patient / Non-visit DO Angela tt Kuns Work Phone: [facility] Work Phone: Start: 08-30-2023 Non-patient / Non-visit DO Angela tt Kuns Work Phone: [facility] Work Phone: Start: 08-29-2023 Non-patient / Non-visit DO Angela tt Kuns Work Phone: [facility] Work Phone: Start: 08-28-2023 Non-patient / Non-visit DO Angela tt Kuns Work Phone: [facility] Work Phone: Start: 08-27-2023 Non-patient / Non-visit DO Angela tt Kuns Work Phone: [facility] Work Phone: Start: 08-26-2023 Non-patient / Non-visit DO Angela tt Kuns Work Phone: [facility] Work Phone: Start: 08-25-2023 End: 08-30-2023 Evaluation and management of inpatient LAISHA SINGER Facility:[facility] Start: 08-11-2023 Encounter for other preprocedural examination CHARLES BAZZI [facility] Start: 08-11-2023 End: 08-11-2023 [facility] 2 Work Phone: Pre Anesthesia Comment on above: Pre-op examination ( Primary Dx); Atrial fibrillation, unspecified type (HCC); Essential hypertension; Hyperlipidemia, unspecified hyperlipidemia type; Gastroesophageal reflux disease without esophagitis; Other iron deficiency anemia; Rectal cancer (HCC); Mixed anxiety depressive disorder Start: 08-11-2023 End: 08-11-2023 Preprocedural examination done [facility] 2 Work Phone: [facility] Work Phone: Start: 08-07-2023 End: 08-07-2023 ambulatory CHARLES BAZZI Facility:[facility] Start: 07-27-2023 ambulatory CHARLES BAZZI [facility] ty:[facility] Start: 07-25-2023 End: 07-25-2023 ambulatory [facility] Ambulatory Start: 07-25-2023 End: 07-25-2023 Office outpatient visit 15 minutes Marcos Rios MD Work Phone: [facility] Comment on above: Other chest pain (Pr imary Dx); Essential hypertension; Colorectal cancer (CMS/HCC); BMI 24.0-24.9, adult; History of atrial fibrillation Start: 07-21-2023 End: 07-21-2023 ambulatory CHARLES BAZZI Facility:[facility] Start: 07-18-2023 End: 07-18-2023 ambulatory LAISHA SINGER Facility:[facility] Start: 07-13-2023 End: 07-14-2023 ambulatory CHARLES BAZZI Facility:[facility] Start: 07-07-2023 End: 07-07-2023 ambulatory CHARLES BAZZI Facility:[facility] Start: 07-05-2023 End: 07-05-2023 ambulatory CHARLES BAZZI Facility:[facility] Start: 07-04-2023 End: 07-04-2023 ambulatory DELFINO VARGAS V Not Available Start: 06-26-2023 End: 06-26-2023 ambulatory Delfino Facility:[facility] Start: 06-26-2023 End: 06-26-2023 Admission to same day surgery center DO Charles Bazzi Work Phone: [facility] [place] Start: 06-26-2023 End: 06-26-2023 ambulatory DO Charles Bazzi Work Phone: [facility] Work Phone: Start: 06-21-2023 Telephone encounter Colleen Solorio RN Work Phone: Hematology/Oncology Comment on above: Care Coordination (M edication update) Start: 06-20-2023 End: 06-20-2023 ambulatory CHARLES BAZZI Facility:[facility] Start: 06-20-2023 End: 06-20-2023 Nursing evaluation of patient and report Colleen Solorio RN Work Phone: Hematology/Oncology Comment on above: Rectal cancer (HCC) (Primary Dx) Start: 06-19-2023 End: 06-19-2023 ambulatory DELFINODorcas LARAS V Not Available Start: 06-14-2023 End: 06-14-2023 Patient encounter procedure Darnell Corona MD Work Phone: [facility] Start: 06-14-2023 End: 06-14-2023 ambulatory Darnell Corona MD Work Phone: Hematology/Oncology Comment on above: Rectal cancer (HCC) (Primary Dx) Start: 06-13-2023 End: 06-13-2023 ambulatory OSCAR VALLE Not Available Start: 06-12-2023 End: 06-12-2023 ambulatory CHARLES BAZZI Facility:[facility] Start: 06-12-2023 End: 06-12-2023 Subsequent hospital visit by physician Mri 6 Radio Main Q (I-Stat/1.5t/3t) Work Phone: MRI Q Comment on above: Rectal cancer (HCC) [C20] Start: 06-08-2023 ambulatory CHARLES BAZZI Facili ty:[facility] Start: 06-08-2023 Telephone encounter Princess (Pss) Leo sy Radiology Comment on above: Appointment reminder (Appointment reminder call--spoke with patient--gave directions to the office.) Start: 06-08-2023 End: 06-08-2023 Subsequent hospital visit by physician Laisha Singer MD Work Phone: Procedures Comment on above: Rectal cancer (HCC) [C20] Start: 05-29-2023 End: 05-29-2023 Patient encounter procedure Del Hudson MD Work Phone: Radiation Oncology Comment on above: Rectal adenocarcinom a (HCC) (Primary Dx) Start: 05-29-2023 End: 05-29-2023 ambulatory CHARLES BAZZI Facility:[facility] Start: 05-11-2023 End: 05-11-2023 ambulatory Charles Lucio Other [place] Other Start: 05-11-2023 Telephone encounter Charles Bazzi [facility] Start: 05-10-2023 End: 05-10-2023 ambulatory CHARLES BAZZI Facility:[facility] Start: 05-10-2023 Patient encounter procedure Del Hudson MD Work Phone: CASTOR Start: 05-10-2023 Radiation Oncology Note Del Hudson MD Work Phone: Radiation Oncology Comment on above: Completion Note Start: 05-09-2023 End: 05-09-2023 ambulatory CHARLES BAZZI Facility:[facility] Start: 05-08-2023 End: 05-08-2023 Patient encounter procedure Del Hudson MD Work Phone: Radiation Oncology Comment on above: Rectal adenocarcinom a (HCC) (Primary Dx) Start: 05-08-2023 End: 05-08-2023 ambulatory CHARLESROCIO LUCIO Facility:[facility] Start: 05-05-2023 End: 05-05-2023 ambulatory [facility] Facility:[facility] Start: 05-04-2023 End: 05-04-2023 ambulatory CHARLES BAZZI Facility:[facility] Start: 05-03-2023 End: 05-03-2023 ambulatory CHARLES BAZZI Facility:[facility] Start: 05-02-2023 Patient encounter procedure Osmany Lee T Hematology/Oncology Comment on above: Muscle soreness (Rosa raz Dx) Start: 05-02-2023 End: 05-02-2023 ambulatory CHARLES BAZZI Facility:[facility] Start: 05-01-2023 Office outpatient vi sit 25 minutes Charles Bazzi [facility] Start: 05-01-2023 End: 05-01-2023 Patient encounter procedure Lab[facility] [place] Work Phone: Radiation Oncology Comment on above: Dysuria (Primary Dx) Dysuria (Primary Dx) ; Rectal adenocarcinoma (HCC) Start: 05-01-2023 End: 05-01-2023 ambulatory CHARLES BAZZI [place] Other Start: 04-28-2023 End: 04-28-2023 Patient encounter procedure Darnell Corona MD Work Phone: [facility] Start: 04-28-2023 End: 04-28-2023 ambulatory Darnell Corona MD Work Phone: Hematology/Oncology Comment on above: Rectal cancer (HCC) (Primary Dx) Start: 04-28-2023 End: 04-28-2023 ambulatory CHARLES BAZZI Facility:[facility] Start: 04-27-2023 End: 04-27-2023 ambulatory CHARLES BAZZI Facility:[facility] Start: 04-27-2023 End: 04-27-2023 ambulatory CHARLES BAZZI Facility:[facility] Start: 04-26-2023 End: 04-26-2023 ambulatory CHARLES BAZZI Facility:[facility] Start: 04-25-2023 Patient encounter procedure Osmany Lee T Hematology/Oncology Comment on above: Muscle soreness (Rosa raz Dx) Start: 04-25-2023 End: 04-25-2023 ambulatory CHARLES BAZZI Facility:[facility] Start: 04-24-2023 End: 04-24-2023 Patient encounter procedure Del Hudson MD Work Phone: Radiation Oncology Comment on above: Rectal adenocarcinom a (HCC) (Primary Dx) Start: 04-24-2023 End: 04-24-2023 ambulatory CHARLESROCIO LUCIOPacheco Facility:[facility] Start: 04-21-2023 End: 04-21-2023 ambulatory CHARLESROCIO JOSEPH JLUIS Facility:[facility] Start: 04-20-2023 End: 04-20-2023 ambulatory [facility] Facility:[facility] Start: 04-19-2023 End: 04-19-2023 [facility] Facility:[facility] Start: 04-18-2023 End: 04-18-2023 ambulatory PRINCESS MOORE Facility:[facility] Start: 04-18-2023 End: 04-18-2023 [facility] Facility[facility] Start: 04-17-2023 End: 04-17-2023 ambulatory Del HUDSON Facility:[facility] Start: 04-14-2023 End: 04-14-2023 Patient encounter procedure Darnell Corona MD Work Phone: [facility] Start: 04-14-2023 End: 04-14-2023 ambulatory Darnell Corona MD Work Phone: Hematology/Oncology Comment on above: Rectal cancer (HCC) (Primary Dx) Start: 04-13-2023 End: 04-13-2023 ambulatory CHARLES OPALDALLIN LUCIOPacheco Facility:[facility] Start: 04-12-2023 End: 04-12-2023 [facility] Facility:[facility] Start: 04-11-2023 End: 04-11-2023 ambulatory [facility] Facility:[facility] Start: 04-10-2023 End: 04-10-2023 Patient encounter procedure Del Hudson MD Work Phone: Radiation Oncology Comment on above: Rectal adenocarcinom a (HCC) (Primary Dx) Start: 04-10-2023 End: 04-10-2023 ambulatory CHARLES BAZZI Facility:[facility] Start: 04-07-2023 End: 04-07-2023 ambulatory DARNELL CORONA Facility:[facility] Start: 04-06-2023 Telephone encounter Rosalina Card Rn) Zeeshan KIRKPATRICK [facility] Radiology Procedure Comment on above: Radiology Pre Proced ure Instructions Start: 04-06-[address] Charles Bazzi Fa cility:[id number] Start: 04-05-2023 End: 04-06-2023 ambulatory Charles Bazzi Facility:[facility] Start: 04-05-2023 End: 04-06-2023 Evaluation and management of inpatient DO Charles Bazzi Work Phone: [facility] Work Phone: Start: 04-05-2023 End: 04-06-2023 observation encounter DO Charles Bazzi Work Phone: [facility] Work Phone: Start: 04-05-2023 Telephone encounter Colleen Solorio RN Work Phone: Hematology/Oncology Comment on above: Care Coordination (C linical update) Care Coordination (E R recommendations) Start: 04-04-2023 End: 04-04-2023 ambulatory CHARLES BAZZI Facility:[facility] Start: 04-03-2023 Telephone encounter Colleen Solorio RN Work Phone: Hematology/Oncology Comment on above: Care Coordination (C 1D1 treatment follow up call) Start: 04-03-2023 End: 04-03-2023 Patient encounter procedure Del Hudson MD Work Phone: Radiation Oncology Comment on above: Rectal adenocarcinom a (HCC) (Primary Dx) Start: 04-03-2023 End: 04-03-2023 ambulatory Del HUDSON Facility:[facility] Start: 03-31-2023 End: 03-31-2023 ambulatory CHARLES BAZZI Facility:[facility] Start: 03-30-2023 End: 03-30-2023 ambulatory Del MILLAN RUBENSVAMSHI Facility:[facility] Start: 03-29-2023 End: 03-29-2023 ambulatory Del SHAN RUBENSVAMSHI Facility:[facility] Start: 03-28-2023 End: 03-28-2023 ambulatory Imad Asaad Other [place] Other Start: 03-28-2023 Telephone encounter Imad Asaad [facility] Start: 03-22-2023 End: 03-23-2023 ambulatory CHARLES BAZZI Facility:[facility] Start: 03-22-2023 End: 03-23-2023 ambulatory Darnell Corona MD Work Phone: Hematology/Oncology Comment on above: Rectal cancer (HCC) (Primary Dx) Patient Education Start: 03-22-2023 End: 03-22-2023 Nursing evaluation of patient and report Colleen Solorio RN Work Phone: Hematology/Oncology Comment on above: Rectal cancer (HCC) (Primary Dx) Refill Request Start: 03-22-2023 End: 03-23-2023 Patient encounter procedure Darnell Corona MD Work Phone: [facility] Comment on above: Rectal adenocarcinom a (HCC) (Primary Dx) Start: 03-22-2023 Radiation Oncology Note G Ramy Hudson MD Work Phone: Radiation Oncology Comment on above: Treatment Planning Start: 03-21-2023 Telephone encounter Colleen Solorio RN Work Phone: Hematology/Oncology Comment on above: Care Coordination (T reatment plan) Start: 03-16-2023 ambulatory CHARLES BAZZI Facili ty:[facility] Start: 03-16-2023 End: 03-16-2023 Subsequent hospital visit by physician Laisha Singer MD Work Phone: Procedures Start: 03-15-2023 ambulatory JIMENA HUDSON Facility:[facility] Start: 03-14-2023 End: 03-14-2023 ambulatory LAISHA SINGER Facility:[facility] Start: 03-08-2023 End: 03-08-2023 Patient encounter procedure Del Hudson MD Work Phone: Radiation Oncology Comment on above: Rectal adenocarcinom a (HCC) (Primary Dx) Start: 03-08-2023 End: 03-08-2023 ambulatory Del HUDSON Facility:[facility] Start: 03-07-2023 Chart abstracting Darnell urbano MD Work Phone: Hematology/Oncology Start: 03-07-2023 Telephone encounter Del Hudson MD Work Phone: Radiation Oncology Comment on above: Orders Start: 03-06-2023 End: 03-06-2023 ambulatory Imad Asaad Facility:[facility] Start: 03-06-2023 End: 03-06-2023 Admission to same day surgery center DO Charles Bazzi Work Phone: [facility] Work Phone: Start: 02-28-2023 End: 02-28-2023 ambulatory Charles Bazzi Other [employer] Other Start: 02-28-2023 Telephone encounter Charles Bazzi [facility] Start: 02-23-2023 End: 02-23-2023 ambulatory Imad Asaad Other [employer] Other Start: 02-23-2023 Telephone encounter Imad Asaad [facility] [employer] Start: 02-07-2023 End: 02-07-2023 ambulatory Cahrles Bazzi Other [employer] Other Start: 02-07-2023 Telephone encounter Charles Bazzi [facility] Start: 11-07-2022 End: 11-08-[address] SHAKILA CHAO . Facility:[facility] Start: 11-03-2022 End: 11-03-[address] SHAKILA CHAO . Facility:[facility] Start: 10-31-2022 End: 10-31-2022 ambulatory Charles Kuns Other [employer] Other Start: 10-31-2022 Office outpatient vi sit 25 minutes Charles Kuns [facility] Start: 10-26-2022 Office consultation new/estab patient 40 min Charles R Kuns Work Phone: [facility] 250 DO Work Phone: Start: 10-26-[address] Marcos Rios Facility: Start: 10-11-2022 End: 10-11-2022 ambulatory Charles Kuns Other [employer] Other Start: 10-11-2022 Telephone encounter Charles Kuns [facility] Start: 10-03-2022 End: 10-03-2022 ambulatory Charles Kuns Other [employer] Other Start: 10-03-2022 Office outpatient vi sit 25 minutes Charles Kuns [facility] Start: 10-03-2022 Telephone encounter [facility] Start: 09-22-2022 End: 09-22-2022 ambulatory Charles Kuns Other [employer] Other Start: 09-22-2022 Telephone encounter [facility]uns [facility] Start: 09-20-2022 End: 09-20-2022 ambulatory Charles Kuns Other [employer] Other Start: 09-20-2022 Telephone encounter [facility]uns [facility] Start: 09-06-2022 End: 09-06-2022 ambulatory Charles Kuns Other [employer] Other Start: 09-06-2022 Telephone encounter Charles Kuns [facility] Start: 09-05-2022 End: 09-05-2022 ambulatory Charles Kuns Other [employer] Other Start: 09-05-2022 Telephone encounter Charles Kuns [facility] Start: 09-01-2022 End: 09-13-2022 ambulatory CAROLINE JUAN CARLOS Facility: Start: 08-18-2022 End: 08-18-2022 ambulatory Caroline Juan Carlos II Other [employer] Other Start: 08-18-2022 Office outpatient vi sit 25 minutes Caroline Bridgton II [facility] Start: 08-17-2022 End: 08-17-2022 ambulatory Charles Kuns Other [employer] Other Start: 08-17-2022 Telephone encounter Charles Kuns [facility] Start: 05-25-2022 End: 05-25-2022 ambulatory DO Charles Kuns Work Phone: [facility] Work Phone: Start: 05-25-2022 End: 05-25-2022 Patient encounter procedure DO Charles Kuns Work Phone: [facility] Start: 05-20-2022 End: 05-20-2022 ambulatory DO Charles Kuns Work Phone: [facility] Work Phone: Start: 05-20-2022 End: 05-20-2022 Patient encounter procedure DO Charles Kuns Work Phone: [facility] Start: 05-18-2022 End: 05-18-2022 ambulatory Charles Kuns Other [employer] Other Start: 05-18-2022 Encounter by compute r link Charles Kuns [facility] Start: 05-18-2022 Office outpatient vi sit 25 minutes Caroline Bridgton II [facility] Start: 05-11-2022 End: 05-11-2022 ambulatory Caroline Bridgton II Other [employer] Other Start: 05-11-2022 Office outpatient vi sit 25 minutes Caroline Juan Carlos II [facility] Start: 04-27-2022 End: 04-27-2022 ambulatory Charles Kuns Other [employer] Other Start: 04-27-2022 Telephone encounter Charles Kuns [facility] [place] Start: 04-20-2022 End: 04-20-2022 ambulatory Charles Kuns Other [employer] Other Start: 04-20-2022 Telephone encounter Charles Kuns [facility] [place] Start: 02-11-2022 End: 02-11-2022 ambulatory Caroline Juan Carlos II Other [employer] Other Start: 02-11-2022 Office outpatient ne w 45 minutes Caroline Bridgton II [facility] Start: 02-11-2022 End: 02-11-2022 Patient encounter procedure DO Charlesrocio Bazzi Work Phone: [facility] Start: 04-25-2017 Ambulatory CHARLES KUNS Facility:1 [id number] Patient encounter status Charles R Kuns Work Phone: [facility] 250 DO Work Phone: Procedures Date Procedure Procedure Detail Performing Clinician Start: 11-06-2023 Antibody screen LAISHA SINGER Comment on above: Order Comment: Speci men Type: BLOOD SPECIMENOrdering Facility: [facility] Address: [address] [place] [address] Performed By: #### T SCR ####CORNELIUS BLOOD BANKCLIA [id number] [address] [place] Start: 10-26-2023 Diagnostic radiograp hy of abdomen DO Charles Bazzi Work Phone: Start: 10-25-2023 CT angiography of thorax DO Charles Bazzi Work Phone: Start: 10-25-2023 Computed tomography of abdomen and pelvis with contrast DO Charles Bazzi Work Phone: Start: 10-25-2023 Urine culture DO Charles Bazzi Work Phone: Start: 10-10-2023 Blood count complete auto&auto difrntl wbc Darnell Corona MD Work Phone: Comment on above: Carcinoembryonic ant igen test is used as an aid in monitoring response to treatment or recurrence in patients with established colorectal, breast, lung, prostatic, pancreatic, and ovarian carcinomas. Clinical correlation is required.The Carcinoembryonic antigen test was performed using the [employer] DXI paramagnetic particle chemiluminescent immunoassay method. Results obtained with different assay methods or kits cannot be used interchangeably. Start: 09-30-2023 CT of abdomen and pe lvis without contrast DO Charles Bazzi Work Phone: Start: 08-11-2023 Antibody screen CHARLES AN Comment on above: Order Comment: Speci men Type: BLOOD SPECIMENOrdering Facility: [facility] Address: [address] [place] [address] Performed By: #### T [id number] ####CC [facility] BLOOD BANKCLIA [id number] [address] [place] Start: 06-26-2023 Plain chest X-ray DO Br etdorcas Bazzi Work Phone: Start: 06-26-2023 OR Infusaport Insertion/Removal (Not Applicable) DO Charles Bazzi Work Phone: Start: 06-12-2023 Mri pelvis w/o & w/c ontrast material Darnell Corona MD Work Phone: Start: 06-08-2023 Sigmoidoscopy flx dx w/collj spec br/wa if pfrmd [facility] Provider Start: 04-05-2023 CT angiography of thorax DO Charlesrocio Bazzi Work Phone: Start: 03-16-2023 Sigmoidoscopy flx dx w/collj spec br/wa if pfrmd Laisha Singer MD Work Phone: Start: 03-06-2023 Carcinoembryonic antigen cea Charles Bazzi Comment on above: Result Comment: PERF ORMED BY: [place] [address] PATHOLOGIST GASOLINE ATTENDANT LYUDMILA GIANG M.D. Performed By: #### L TIMOTHY, GHULAM, CBC, BUN #### [address] Start: 03-06-2023 Computed tomography of abdomen and pelvis with contrast DO Charlesrocio Lucios Work Phone: Start: 03-06-2023 CT of thorax with contrast DO Charlesrocio Bazzi Work Phone: Start: 03-06-2023 Colonoscopy DO Charles K uns Work Phone: Start: 05-20-2022 Screening mammograph y of bilateral breasts DO Charles Naveeds Work Phone: Start: 02-11-2022 Pelvis X-ray DO Charles K uns Work Phone: Start: 02-11-2022 X-ray of both knees DO Charlesrocio Lucios Work Phone: Start: 07-10-2015 Total colonoscopy Charles R Naveeds Work Phone: Cholecystectomy Charles R Naveeds Work Phone: Excision of melanoma Charles R Kuns Work Phone: H/O: ileostomy Ileostomy status DO Charles Kuns Work Phone: Neuroplasty Charles R Kuns Work Phone: Operative procedure on ankle Charles R Kuns Work Phone: Plan of Treatment Date Care Activity Detail Author Start: 07-27-2028 Screening for malignant neoplasm of colon [facility] Start: 06-08-2028 Colorectal Cancer Screening Colorectal Cancer Screening [facility] Start: 06-08-2028 Screening for malignant neoplasm of colon [facility] Start: 06-08-2028 Sigmoidoscopy Sigmoidoscopy [facility] Start: 03-16-2028 Colorectal Cancer Screening Colorectal Cancer Screening [facility] Start: 03-16-2028 SIGMOIDOSCOPY SIGMOIDOSCOPY [facility] Start: 02-05-2027 Diabetes Screening Diabetes Screening [facility] Start: 11-09-2026 Diabetes Screening Diabetes Screening [facility] Start: 11-05-2026 Diabetes Screening Diabetes Screening [facility] Start: 10-09-2026 Diabetes Screening Diabetes Screening [facility] Start: 09-04-2026 Diabetes Screening Diabetes Screening [facility] Start: 09-01-2026 Diabetes Screening Diabetes Screening [facility] Start: 07-13-2026 Diabetes Screening Diabetes Screening [facility] Start: 06-14-2026 Diabetes Screening Diabetes Screening [facility] Start: 04-28-2026 Diabetes Screening Diabetes Screening [facility] Start: 04-14-2026 Diabetes Screening Diabetes Screening [facility] Start: 11-23-2024 BP Controlled (<130/80) BP Controlled (<130/80) [facility] Start: 11-03-2024 Screening for osteoporosis Bone Density Scan [facility] Start: 10-09-2024 BP Controlled (<130/80) BP Controlled (<130/80) [facility] Start: 09-21-2024 BP Controlled (<130/80) BP Controlled (<130/80) [facility] Start: 08-11-2024 BP Controlled (<130/80) BP Controlled (<130/80) [facility] Start: 05-08-2024 End: 08-07-2024 Carcinoembryonic Ag [Mass/volume] in Serum or Plasma CARCINOEMBRYONIC ANTIGEN Lab Routine History of rectal cancer Expected: 05/08/2024 (Approximate), Expires: 08/07/2024 [facility] Comment on above: Expected: 05/08/2024 (Approximate), Expi res: 08/07/2024 Start: 05-08-2024 End: 08-07-2024 CBC W Auto Differential panel - Blood COMPLETE BLOOD COUNT AND DIFFERENTIAL Lab Routine History of rectal cancer Expected: 05/08/2024 (Approximate), Expires: 08/07/2024 Work Phone: Comment on above: Expected: 05/08/2024 (Approximate), Expi res: 08/07/2024 Start: 05-08-2024 End: 08-07-2024 Comprehensive metabolic 2000 panel - Serum or Plasma COMPREHENSIVE METABOLIC PANEL Lab Routine History of rectal cancer Expected: 05/08/2024 (Approximate), Expires: 08/07/2024 [facility] Comment on above: Expected: 05/08/2024 (Approximate), Expi res: 08/07/2024 Start: 05-08-2024 End: 08-07-2024 MISC SEND OUT TST 1 MISC SEND OUT TST 1 Lab Routine History of rectal cancer Expected: 05/08/2024 (Approximate), Expires: 08/07/2024 [facility] Comment on above: Expected: 05/08/2024 (Approximate), Expi res: 08/07/2024 Start: 05-08-2024 End: 05-08-2024 Follow-up encounter 05/08/2024 1:45 PM EDT Visit (SP) Office Hematology [address] [place] [address] Darnell Corona MD [address] [facility] [place] [address] 3 month follow up Hematology Comment on above: 3 month follow up Start: 05-08-2024 End: 05-08-2024 Patient encounter procedure 05/08/2024 1:30 PM EDT Results Only [facility] [address] [place] [address] [facility] Comment on above: labs cj Start: 04-10-2024 End: 04-10-2024 Patient encounter procedure 04/10/2024 10:15 AM EDT Office Visit Radiation Oncology [address] [place] [address] Del Hudson MD [address] [place] [address] [place] [address] followup Radiation Oncology Comment on above: followup Start: 03-10-2024 Influenza vaccination [facility] Start: 02-13-2024 End: 02-13-2024 Patient encounter procedure 02/13/2024 1:20 PM EDT Office Visit Colorectal Surgery [address] [address] [place], [place] [id number] [place] [address] [place] [address] Est patient, 3 month follow up, , robotic LAR, DLI, surgery 08/25/23 Colorectal Surgery Comment on above: Est patient, 3 month follow up, , roboti c LAR, DLI, surgery 08/25/23 Start: 02-06-2024 End: 02-06-2024 Follow-up encounter 02/06/2024 11:15 AM EDT Visit (SP) Office Hematology/Oncology [address] [place] [address] [place] [address] Darnell Corona MD [address] [place] [address] 3 month follow up [facility] Hematology/Oncology Comment on above: 3 month follow up [facility] Start: 02-06-2024 End: 02-06-2024 Patient encounter procedure 02/06/2024 11:00 AM EDT Office Visit [facility] [address] [place] [address] [place] [address] labs [facility] Comment on above: labs Start: 01-31-2024 End: 01-31-2024 Follow-up encounter Hematology/Oncology Comment on above: 3 month follow up [facility] Start: 01-26-2024 End: 01-26-2024 Patient encounter procedure 01/26/2024 11:00 AM EDT Office Visit [address] [place] [address] Marcos Rios MD [address] [place] [address] [facility] Start: 01-16-2024 End: 01-16-2024 Follow-up encounter Hematology/Oncology Comment on above: 3 month follow up [facility] Start: 01-09-2024 End: 01-09-2024 Patient encounter procedure 01/09/2024 2:20 PM EDT Office Visit Colorectal Surgery [facility] [address] [place], [place] [phone] [place] [address] [place], [place] [id number] Est patient, 3 month follow up, , robotic LAR, DLI, surgery 08/25/23 Colorectal Surgery Comment on above: Est patient, 3 month follow up, , roboti c LAR, DLI, surgery 08/25/23 Start: 01-09-2024 End: 04-09-2024 Carcinoembryonic Ag [Mass/volume] in Serum or Plasma CEA BLD Lab Routine History of rectal cancer Expected: 01/09/2024 (Approximate), Expires: 04/09/2024 Work Phone: Comment on above: Expected: 01/09/2024 (Approximate), Expi res: 04/09/2024 Start: 01-09-2024 End: 04-09-2024 CBC W Auto Differential panel - Blood CBC + DIFF Lab Routine History of rectal cancer Expected: 01/09/2024 (Approximate), Expires: 04/09/2024 Work Phone: Comment on above: Expected: 01/09/2024 (Approximate), Expi res: 04/09/2024 Start: 01-09-2024 End: 04-09-2024 Comprehensive metabolic 2000 panel - Serum or Plasma COMP METABOLIC PANEL Lab Routine History of rectal cancer Expected: 01/09/2024 (Approximate), Expires: 04/09/2024 Work Phone: Comment on above: Expected: 01/09/2024 (Approximate), Expi res: 04/09/2024 Start: 01-09-2024 End: 04-09-2024 MISC SEND OUT TST 1 MISC SEND OUT TST 1 Lab Routine History of rectal cancer Expected: 01/09/2024 (Approximate), Expires: 04/09/2024 Work Phone: Comment on above: Expected: 01/09/2024 (Approximate), Expi res: 04/09/2024 Start: 01-09-2024 End: 01-09-2024 ambulatory 01/09/2024 10:00 AM EDT Results Only [facility] [address] [place] [address] [place] [address] [facility] Start: 11-30-2023 End: 11-30-2023 Patient encounter procedure 11/30/2023 1:00 PM EDT Office Visit Colorectal Surgery [address] [place] [address] [place] [address] [place] [address] Est pt: 3 mo f/up, robotic LAR, DLI, Colorectal Surgery Comment on above: Est pt: 3 mo f/up, robotic LAR, DLI, Start: 11-24-2023 End: 11-24-2023 Patient encounter procedure 11/24/2023 3:40 PM EDT Office Visit Colorectal Surgery [address] [facility] [address] [place], [place] [phone] Brandie Salmeron, [employer]ANT [address] [facility] [address] [place] [address] PostOp: Ileostomy Closure, Colorectal Surgery Comment on above: PostOp: Ileostomy Closure, Start: 11-07-2023 End: 02-06-2024 Carcinoembryonic Ag [Mass/volume] in Serum or Plasma CEA BLD Lab Routine History of rectal cancer Expected: 11/07/2023 (Approximate), Expires: 02/06/2024 Work Phone: Comment on above: Expected: 11/07/2023 (Approximate), Expi res: 02/06/2024 Start: 11-07-2023 End: 11-07-2023 Patient encounter procedure 11/07/2023 10:20 AM EDT Office Visit Colorectal Surgery [address] [place] [address] [place] [address] [place] [phone] Est patient, hospital follow up, SBO x3 Colorectal Surgery Comment on above: Est patient, hospital follow up, SBO x3 Start: 10-28-2023 [facility] Start: 10-27-2023 Administration of prophylactic treatment [facility] Start: 10-26-2023 [facility] Start: 10-26-2023 Diagnostic radiography of abdomen [facility] Start: 10-26-2023 Referral to general surgeon [facility] Start: 10-26-2023 Hospital admission [facility] Start: 10-26-2023 [facility] Start: 10-25-2023 CT angiography of thorax CT angio chest PE protocol [facility] Start: 10-25-2023 CT Chest [facility] Start: 10-25-2023 Computed tomography of abdomen and pelvis with contrast CT abdomen pelvis w con [facility] Start: 10-25-2023 CT Abdomen and Pelvis W contrast IV [facility] Start: 10-25-2023 Bacteria identified in Blood by Culture [facility] Start: 10-25-2023 Bacteria identified in Urine by Culture [facility] Start: 10-25-2023 Blood culture for bacteria, including anaerobic screen Blood Culture [facility] Start: 10-10-2023 End: 01-09-2024 MISC SEND OUT TST 1 Work Phone: Comment on above: Expected: 10/10/2023, Expires: Start: 10-01-2023 [facility] Start: 09-30-2023 Referral to general surgeon [facility] Start: 09-30-2023 Hospital admission [facility] Start: 09-30-2023 CT Abdomen and Pelvis WO contrast [facility] Start: 09-30-2023 CT of abdomen and pelvis without contrast CT abdomen pelvis wo con [facility] Start: 08-11-2023 End: 11-10-2023 CONFIRM BLOOD TYPE Work Phone: Comment on above: Expected: 08/11/2023, Expires: Start: 07-10-2023 Advance Directive Discussion Advance Directive Discussion [facility] Start: 07-06-2023 End: 10-05-2023 Carcinoembryonic Ag [Mass/volume] in Serum or Plasma CEA BLD Lab Routine Rectal cancer (HCC) Expected: 07/06/2023, Expires: 10/05/2023 Work Phone: Comment on above: Expected: 07/06/2023, Expires: Start: 07-06-2023 End: 10-05-2023 CBC W Auto Differential panel - Blood CBC + DIFF Lab Routine Rectal cancer (HCC) Expected: 07/06/2023, Expires: 10/05/2023 Work Phone: Comment on above: Expected: 07/06/2023, Expires: Start: 07-06-2023 End: 10-05-2023 Comprehensive metabolic 2000 panel - Serum or Plasma COMP METABOLIC PANEL Lab Routine Rectal cancer (HCC) Expected: 07/06/2023, Expires: 10/05/2023 Work Phone: Comment on above: Expected: 07/06/2023, Expires: Start: 07-06-2023 End: 06-14-2024 Ferritin [Mass/volume] in Serum or Plasma FERRITIN BLD Lab Routine Rectal cancer (HCC) Expected: 07/06/2023, Expires: 06/14/2024 Work Phone: Comment on above: Expected: 07/06/2023, Expires: Start: 07-06-2023 End: 06-14-2024 Iron and Iron binding capacity panel - Serum or Plasma IRON + TIBC Lab Routine Rectal cancer (HCC) Expected: 07/06/2023, Expires: 06/14/2024 Work Phone: Comment on above: Expected: 07/06/2023, Expires: Start: 06-26-2023 [facility] Start: 06-26-2023 [facility] Start: 06-09-2023 End: 09-08-2023 Carcinoembryonic Ag [Mass/volume] in Serum or Plasma CEA BLD Lab Routine Rectal cancer (HCC) Expected: 06/09/2023 (Approximate), Expires: 09/08/2023 Work Phone: Comment on above: Expected: 06/09/2023 (Approximate), Expi res: 09/08/2023 Start: 06-09-2023 End: 09-08-2023 CBC W Auto Differential panel - Blood CBC + DIFF Lab Routine Rectal cancer (HCC) Expected: 06/09/2023 (Approximate), Expires: 09/08/2023 Work Phone: Comment on above: Expected: 06/09/2023 (Approximate), Expi res: 09/08/2023 Start: 06-09-2023 End: 09-08-2023 Comprehensive metabolic 2000 panel - Serum or Plasma COMP METABOLIC PANEL Lab Routine Rectal cancer (HCC) Expected: 06/09/2023 (Approximate), Expires: 09/08/2023 Work Phone: Comment on above: Expected: 06/09/2023 (Approximate), Expi res: 09/08/2023 Start: 06-09-2023 End: 05-27-2024 Mri pelvis w/o & w/contrast material MRI RECTUM WO/W IVCON Radiology Routine Rectal cancer (HCC) Expected: 06/09/2023 (Approximate), Expires: 05/27/2024 Work Phone: Comment on above: Expected: 06/09/2023 (Approximate), Expi res: 05/27/2024 Start: 04-28-2023 End: 06-28-2023 CBC W Auto Differential panel - Blood CBC + DIFF Lab Routine Rectal cancer (HCC) Expected: 04/28/2023 (Approximate), Expires: 06/28/2023 Work Phone: Comment on above: Expected: 04/28/2023 (Approximate), Expi res: 06/28/2023 Start: 04-28-2023 End: 06-28-2023 Comprehensive metabolic 2000 panel - Serum or Plasma COMP METABOLIC PANEL Lab Routine Rectal cancer (HCC) Expected: 04/28/2023 (Approximate), Expires: 06/28/2023 Work Phone: Comment on above: Expected: 04/28/2023 (Approximate), Expi res: 06/28/2023 Start: 04-06-2023 [facility] Start: 04-06-2023 [facility] Start: 04-06-2023 Referral to oncologist [facility] Start: 04-06-2023 [facility] Start: 04-06-2023 [facility] Start: 04-05-2023 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 to 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 worker [facility] Start: 04-05-2023 Hospital admission [facility] Start: 04-05-2023 [facility] Start: 04-05-2023 End: 06-05-2023 CBC W Auto Differential panel - Blood CBC + DIFF Lab Routine Rectal cancer (HCC) Expected: 04/05/2023 (Approximate), Expires: 06/05/2023 Work Phone: Comment on above: Expected: 04/05/2023 (Approximate), Expi res: 06/05/2023 Start: 04-05-2023 End: 06-05-2023 Comprehensive metabolic 2000 panel - Serum or Plasma COMP METABOLIC PANEL Lab Routine Rectal cancer (HCC) Expected: 04/05/2023 (Approximate), Expires: 06/05/2023 Work Phone: Comment on above: Expected: 04/05/2023 (Approximate), Expi res: 06/05/2023 Start: 03-10-2023 Covid-19 Vaccine () Covid-19 Vaccine () [facility] Start: 03-10-2023 Covid-19 Vaccine ( season) Covid-19 Vaccine () [facility] Start: 03-10-2023 Influenza vaccination [facility] Start: 03-06-2023 [facility] Start: 07-10-2022 ADVANCE DIRECTIVE DISCUSSION ADVANCE DIRECTIVE DISCUSSION [facility] Start: 07-10-2022 DEPRESSION ASSESSMENT DEPRESSION ASSESSMENT [facility] Start: 11-25-2020 COVID-19 VACCINE (3 - Moderna series) COVID-19 VACCINE (3 - Moderna series) [facility] Start: 10-28-2020 Covid-19 Vaccine (3 - Moderna risk series) Covid-19 Vaccine (3 - Moderna risk series) [facility] Start: 09-22-2019 Screening for malignant neoplasm of breast Mammogram Screening [facility] Start: 2018 BONE DENSITY BONE DENSITY [facility] Start: 2018 Bone Density Screening Bone Density Screening [facility] Start: 2018 Pneumococcal Vaccine: 65+ (2 - PCV) Pneumococcal Vaccine: 65+ (2 - PCV) [facility] Start: 2018 Pneumococcal Vaccine: 65+ Years (2 - PCV) Pneumococcal Vaccine: 65+ Years (2 - PCV) [facility] Start: 2018 PNEUMOCOCCAL: 65+ (1 - PCV) PNEUMOCOCCAL: 65+ (1 - PCV) [facility] Start: 2018 PNEUMOCOCCAL: 65+ (2 - PCV) PNEUMOCOCCAL: 65+ (2 - PCV) [facility] Start: 2018 Screening for osteoporosis Bone Density Screening [facility] Start: 04-09-2016 Pneumococcal Vaccine: 65+ (3 - PCV) Pneumococcal Vaccine: 65+ (3 - PCV) [facility] Start: 04-09-2016 Pneumococcal Vaccine: 65+ (3 of 3 - PCV) Pneumococcal Vaccine: 65+ (3 of 3 - PCV) [facility] Start: 2013 RSV Vaccine (1 - 1-dose 60+ series) RSV Vaccine (1 - 1-dose 60+ series) [facility] Start: 2003 SHINGRIX VACCINE (1 of 2) SHINGRIX VACCINE (1 of 2) [facility] Start: 1998 COLOGUARD (FIT-DNA) COLOGUARD (FIT-DNA) [facility] Start: 1998 Colonoscopy COLONOSCOPY [facility] Start: 1998 COLORECTAL CANCER SCREENING COLORECTAL CANCER SCREENING [facility] Start: [address] COLONOGRAPHY [facility] Start: 1998 DIABETES SCREEN DIABETES SCREEN [facility] Start: 1998 Diabetes Screening Diabetes Screening [facility] Start: 1998 FECAL OCCULT BLOOD FECAL OCCULT BLOOD [facility] Start: 1998 Lipid 1996 panel - Serum or Plasma Lipid Screening [facility] Start: 1998 Lipid panel Lipid Screening [facility] Start: 1998 LIPID SCREEN LIPID SCREEN [facility] Start: 1998 Screening for malignant neoplasm of colon [facility] Start: 1998 SIGMOIDOSCOPY SIGMOIDOSCOPY [facility] Start: 1993 Mammography [facility] Start: 1993 Screening for malignant neoplasm of breast [facility] Start: 1975 DTaP/Tdap/Td Vaccines (1 - Tdap) DTaP/Tdap/Td Vaccines (1 - Tdap) [facility] Start: 1972 Urine microalbumin profile [facility] Start: 1971 Annual PCP Team Chronic Disease Visit Annual PCP Team Chronic Disease Visit [facility] Start: 1971 BP Controlled (<130/80) BP Controlled (<130/80) [facility] Start: 1971 HEPATITIS C SCREENING HEPATITIS C SCREENING [facility] Start: 1971 Hepatitis C screening Hepatitis C Screening [facility] Start: 1964 Screening for malignant neoplasm of cervix Cervical Cancer Screening [facility] Start: 02-21-1954 COVID-19 VACCINE (#1) COVID-19 VACCINE (#1) [facility] Start: 1953 Lipid panel Lipid Panel [facility] Start: 1953 Medicare Annual Wellness Visit Medicare Annual Wellness Visit (AWV) [facility] Start: 1953 Screening for malignant neoplasm of colon [facility] Anion gap measurement [facility] Bacteria identified in Urine by Culture URINE CULTURE Microbiology Routine Dysuria 05/01/2023 11:19 AM EDT Work Phone: Basophils [#/volume] in Blood by Automated count [facility] Basophils/100 leukoc ytes in Blood by Automated count [facility] Carcinoembryonic Ag [Mass/volume] in Serum or Plasma CEA BLD Lab Routine History of rectal cancer 10/10/2023 11:40 AM EDT Work Phone: Closure enterostomy lg/small intestine CLOSURE ILEOSTOMY Attention to ileostomy (HCC) Partial small bowel obstruction (HCC) [facility] CT SIM PLANNING RADI ATION ONCOLOGY CT SIM PLANNING RADIATION ONCOLOGY Radiology Routine Rectal adenocarcinoma (HCC) Ordered: 03/23/2023 Work Phone: Comment on above: Ordered: 03/23/2023 End: 04-05-2024 EGD DIAGNOSTIC EGD DIAGNOSTIC Endoscopy Routine Dyspepsia 1 Occurrences starting 04/06/2023 until 04/05/2024 Work Phone: Comment on above: 1 Occurrences starting 04/06/2023 until 04/05/2024 Eosinophils/100 leukocytes in Blood by Automated count [facility] Erythrocyte distribu tion width [Ratio] by Automated [facility] Erythrocytes [#/volu me] in Blood [facility] Glucose measurement estimated from glycated hemoglobin [facility] Guidance for removal of CV catheter with port from Chest IR PORTOCATH REMOVAL Radiology Routine Rectal adenocarcinoma (HCC) Ordered: 12/14/2023 Work Phone: Comment on above: Ordered: 12/14/2023 Hematocrit [Volume Fraction] of Blood [facility] Hemoglobin [Mass/vol ume] in Blood [facility] IR PORTOCATH PLACEMENT IR PORTOC ATH PLACEMENT Radiology KARYN Rectal cancer (HCC) Ordered: 04/05/2023 Work Phone: Comment on above: Ordered: 04/05/2023 Leukocytes [#/volume ] corrected for nucleated erythrocytes in Blood by Automated coun [facility] Leukocytes [#/volume ] in Blood [facility] Lymphocytes [#/volum e] in Blood by Automated count [facility] Lymphocytes/100 leukocytes in Blood by Automated count [facility] MCH [Entitic mass] b y Automated count [facility] MCHC [Mass/volume] b y Automated count [facility] MCV [Entitic volume] by Automated count [facility] Monocytes [#/volume] in Blood by Automated count [facility] Monocytes/100 leukoc ytes in Blood by Automated count [facility] End: 04-05-2024 Mri pelvis w/o & w/contrast material MRI RECTUM WO/W IVCON Radiology Routine Rectal adenocarcinoma (HCC) 1 Occurrences starting 03/07/2023 until 04/05/2024 Work Phone: Comment on above: 1 Occurrences starting 03/07/2023 until 04/05/2024 Neutrophils [#/volum e] in Blood by Automated count [facility] Neutrophils/100 leukocytes in Blood by Automated count [facility] Nucleated erythrocyt es [Presence] in Blood by Automated count [facility] Patient Education [facility] Work Phone: Patient referral [facility] Work Phone: Platelet mean volume [Entitic volume] in Blood by Automated count [facility] Platelets [#/volume] in Blood [facility] UA DIP B/O UA DIP B/O Lab R outine Dysuria Ordered: 05/01/2023 Work Phone: Comment on above: Ordered: 05/01/2023 [facility] c [facility] c [facility] c [facility] c [facility] c [facility] c [facility] Immunizations Immunization Date Immunization Notes Care Provider Henry tompkins 08-08-2021 zoster vaccine recombinant Charles Kuns Other [facility] 02-26-2021 zoster vaccine recombinant Charles Kuns Other [facility] 09-30-2020 COVID-19 Vaccine Moderna - Documentation Purposes Only Caroline Rangel II Other [facility] 09-29-2020 COVID-19 mRNA Bivalent Booster (Moderna) DO Charles Lucios Work Phone: [facility] 09-03-2020 COVID-19 Vaccine Moderna - Documentation Purposes Only Caroline Rangel II Other [facility] 05-07-2019 influenza nasal, unspecified formulation [facility]/[place] Work Phone: [facility] 05-07-2019 influenza, injectable, quadrivalent, preservative free DO Charles Bazzi Work Phone: [facility] 05-07-2019 influenza, injectable, quadrivalent, contains preservative Caroline Hillle II Other [facility] 05-07-2019 influenza virus vaccine, unspecified formulation Colleen Solorio RN Work Phone: [facility] 04-18-2017 influenza, injectable, quadrivalent, preservative free DO Charles Kuns Work Phone: [facility] 04-18-2017 influenza, injectable, quadrivalent, contains preservative Caroline Bridgton II Other [facility] 04-09-2017 influenza, seasonal, injectable Charles R Kuns Work Phone: [facility] Comment on above: Series: 04-09-2015 pneumococcal polysaccharide vaccine, 23 valent Charles R Naveeds Work Phone: [facility] Comment on above: Series: 04-09-2014 influenza, injectable, madin claire canine kidney, preservative free Charles Bazzi Work Phone: [facility] 04-09-2014 influenza, seasonal, injectable, preservative free JOSE MARIA Hudson MD Work Phone: [facility] 04-09-2014 pneumococcal polysaccharide vaccine, 23 valent Charles Bazzi Work Phone: [facility] 11-04-2013 zoster vaccine, live Caroline Juan Carlos II Other [facility] 07-25-2013 pneumococcal polysaccharide vaccine, 23 valent Caroline Bridgton II [facility] [facility] 07-13-2013 influenza virus vaccine, unspecified formulation DO Charles Bazzi Work Phone: [facility] 07-13-2013 influenza virus vaccine, split virus (incl. purified surface antigen) Caroline Rangel II Other [facility] NEGATED: Highlighted row has not occurred! 9 influenza, seasonal, injectable Patient Objection Caroline Rangel II Other [place] Other Payers Date Payer Category Payer Self-pay [id number] 2021 Unknown [id number] 2018 Medicare [id number] 1959 Medicare [id number] 2.1 [id number] 1959 Unknown [id number] 1953 Unknown [id number] 2.16.840.1.793033.3.579.2.593 1953 Unknown [id number] 2.16.840.1.661921.3.579.2.593 1953 Unknown [id number] 2.16.840.1.261797.3.579.2.593 1953 Unknown [id number] 2.16.840.1.492103.3.579.2.356 1953 Unknown [id number] 2.16.840.1.566223.3.579.2.356 1953 Unknown [id number] 2.16.840.1.876134.3.579.2.356 1953 Unknown [id number] 2.16.840.1.434309.3.579.2.1244 1953 Unknown [id number] 2.16.840.1.368787.3.579.2.1259 1953 Unknown [id number] 2.16.840.1.058922.3.579.2.1258 1953 Unknown [id number] 2.16.840.1.058837.3.579.2.1259 1953 Unknown [id number] 2.16.840.1.647827.3.579.2.1258 1953 Unknown [id number] 2.16.840.1.602715.3.579.2.1259 1953 Unknown [id number] 2.16.840.1.606417.3.579.2.125 1953 Unknown [id number] 2.16.840.1.154603.3.579.2.1259 1953 Unknown [id number] 2.16.840.1.647614.3.579.2.125 1953 Unknown [id number] 2.16.840.1.480715.3.579.2.1259 1953 Unknown [id number] 2.16.840.1.976884.3.579.2.125 1953 Unknown [id number] 2.16.840.1.165602.3.579.2.1259 Medicare [place] [employer] Dual Adv VOC [id number] Unknown [employer] [id number] 10 Unknown [id number] 2.16.840.1.781794.3.579.2.531 Unknown [id number] 2.16.840.1.747432.3.579.2.531 Unknown [id number] 2.16.840.1.932027.3.579.2.531 Unknown [id number] 2.16.840.1.403420.3.579.2.531 Unknown [id number] 2.16.840.1.605552.3.579.2.531 Unknown [id number] 2.16.840.1.552262.3.579.2.531 Social History Date Type Detail Facility Start: 03-08-2023 End: 11-09-2023 Sex Assigned At [facility] Start: 06-02-2021 End: 03-08-2023 Tobacco smoking status NHIS Never smoked tobacco (finding) [facility] Start: 1955 Sex Assigned At Female F [facility] Start: 03-08-2023 End: 11-09-2023 Occasional alcohol use Occasional alcohol use [facility] ic Tobacco smoking stat us NHIS Tobacco smoking consumption unknown [facility] Start: 1955 Sex Assigned At Not on file C [facility] History of tobacco use Passive smoker [facility] Start: 03-08-2023 End: 07-20-2023 Tobacco use and exposure Smokeless tobacco non-user [facility] Start: 03-08-2023 End: 02-06-2024 Alcohol intake Current drinker of alcohol (finding) [facility] Start: 03-08-2023 Alcohol Comment socially [facility] Adult Depression Screening Assessment 0 [facility] Start: 03-14-2023 Alcohol Comment 1 drink weekly if th at [facility] Start: 04-18-2023 Alcohol Comment socially a cou ple times per month [facility] Start: 07-20-2023 Alcohol Comment occasional [facility] Work Phone: Start: 07-15-2023 End: 07-25-2023 Exposure to SARS-CoV-2 (event) Not sure [facility] Start: 08-11-2023 Alcohol Comment 2 times a month if t hat [facility] (I/We) worried wheth er (my/our) food would run out before (I/we) got money to buy more. DK or Refused [facility] Start: 09-22-2023 End: 11-24-2023 Alcohol intake Ex-drinker (finding) [facility] Has the [employer], or [employer] threatened to shut off services in your home in past 12Mo No [facility] (I/We) worried wheth er (my/our) food would run out before (I/we) got money to buy more. Never true [facility] Medical Equipment Procedure Code Equipment Code Equipment Origin al Text Equipment Identifier Dates Insertion of central venous catheter (CVC) with subcutaneous port for chemotherapy Vascular port/catheter [id number] FDA Start: 06-26-2023 TVTO OBTURATOR SYSTEM FDA Start: 11-09-2018 TVTO OBTURATOR SYSTEM FDA Start: 11-09-2018 TVTO OBTURATOR SYSTEM FDA Start: 11-09-2018 TVTO OBTURATOR SYSTEM FDA Start: 11-09-2018 TVTO OBTURATOR SYSTEM FDA Start: 11-09-2018 TVTO OBTURATOR SYSTEM FDA Start: 11-09-2018 TVTO OBTURATOR SYSTEM FDA Start: 11-09-2018 TVTO OBTURATOR SYSTEM FDA Start: 11-09-2018 TVTO OBTURATOR SYSTEM FDA Start: 11-09-2018 TVTO OBTURATOR SYSTEM FDA Start: 11-09-2018 TVTO OBTURATOR SYSTEM FDA Start: 11-09-2018 Goals Date Patient Goal Desired Activity /State Functional Status Date Assessment Result Facility 10-28-2023 Functional status Patient at Baseline [facility] Work Phone: 10-01-2023 Functional status Patient at Baseline [facility] Work Phone: 04-06-2023 Functional status Patient at Baseline [facility] Work Phone: Mental Status Date Assessment Result Facility 10-28-2023 Cognitive function Cognitive Sta tus Patient at Baseline [facility] Work Phone: 10-01-2023 Cognitive function Cognitive Sta tus Patient at Baseline [facility] Work Phone: 04-06-2023 Cognitive function Cognitive Sta tus Patient at Baseline [facility] Work Phone: Clinical Notes 02-11-2022 to 02-21-2024 Telephone Encounter - Kari Carrillo RN - 02/21/2024 11:23 AM EDTTelephone Encounter - Kari Carrillo RN - 02/21/2024 11:23 AM EDTTelephone Encounter - Amalia Martin - 02/06/2024 2:18 PM EDT Note Date & Type Note Facility 02-21-2024 Telephone encounter Note Pt notified of negative signatera result and denies questions, needs or concerns at this time. Kari Carrillo RN [facility] 02-21-2024 Miscellaneous Notes Pt notified of negative signatera result and denies questions, needs or concerns at this time. Kari Carrillo RN documented in this encounter [facility] 02-06-2024 Telephone encounter Note Called patient and scheduled labs, signatera and 3 month follow up in [place] with Cj for 05/08 [facility] 02-06-2024 Miscellaneous Notes Called patient and scheduled labs, signatera and 3 month follow up in [place] with Cj for 05/08 Images from the original note were not included. documented in this encounter [facility] 02-06-2024 Telephone encounter Note Images from the original note were not included. [facility] 02-06-2024 Note [facility] 02-06-2024 History of Presen t illness Narrative Images from the original note were not included. PATIENT NAME: Evan Gill CLINIC NO.: [id number] ATTENDING PHYSICIAN: Darnell Corona MD DATE OF SERVICE: February 06, 2024 Some of the elements of this note have been copied from my previous progress note dated 10/10/2023. All the information has been reviewed carefully. Dear Dr. Bazzi here is an update on a follow up visit on female Evan Gill at the clinic February 06, 2024 Diagnosis: MRI staged T3c,N+M0- Adenocarcinoma of the mid-low rectum Treatment History: Xeloda and XRT 03/29/2023- Admitted 04/06/2023 with coronary spasms and elevated Troponin- ECHO normal, CTA negative for PE.Xeloda stopped shortly after completed radiation 05/10/2023 FOLFOX started 07/05/2023- Stopped after reaction and elected not to have any additional chemo 08/25/2023: Robotic low anterior resection with diverting loop ileostomy Flexible sigmoidoscopy- Complete Path CR 4. 11/08/2023: Ileostomy closure and Flex sig 5. Signatera 10/2023- Negative. HPI: Evan Gill is a 68 year old year old female here for follow up. She is doing very well and PORT removed and denies any fevers and or chills. Denies any neuropathy as well. PAST MEDICAL HISTORY Diagnosis Date Constipation Diverticulosis Malignant melanoma (HCC) Rectal cancer (HCC) Social History Tobacco Use Smoking status: Never Passive exposure: Past Smokeless tobacco: Never Vaping Use Vaping Use: Never used Substance Use Topics Alcohol use: Yes Comment: 2 times a month if that Drug use: Never FAMILY HISTORY Problem Relation Age of Onset Hypertension Mother Lung Cancer Mother Coronary Artery Disease Father Hypertension Father Heart disease Father Hyperlipidemia Father Emphysema Father Past medical, social and family history reviewed without any changes. REVIEW OF SYSTEMS GENERAL: No weight loss, malaise or fevers. No night sweats. HEENT: Negative for headaches, No changes in hearing or vision, no nose bleeds or other nasal problems. RESPIRATORY: Negative for cough, wheezing and shortness of breath CARDIOVASCULAR: Negative for chest pain, leg swelling and palpitations GI: Negative for abdominal discomfort, blood in stools or black stools and change in bowel habits : Negative for dysuria, frequency and incontinence MUSCULOSKELETAL: Negative for joint pain or swelling, back pain, and muscle pain. SKIN: Negative for lesions, rash, and itching. HEMATOLOGY/LYMPHOLOGY Negative for prolonged bleeding, bruising easily, and swollen nodes. NEURO: Negative for numbness or tingling of hands/feet. No weakness. PHYSICAL EXAMINATION: BP 150/87 Pulse 76 Temp (Src) 97.7 (Temporal) Resp 16 Ht 5' 4.016 (1.63m) Wt 149 lb 4 oz (67.7kg) SpO2 98% BMI 25.61 kg/(m^2). Wt 61.8 kg (136 lb 3.2 oz) BMI 23.92 kg/m2 Last 3 Encounter Wt Readings: Date: Wt: 03/22/2023 61.8 kg (136 lb 3.2 oz) 03/14/2023 62.6 kg (138 lb) 03/08/2023 62.8 kg (138 lb 6.4 oz) General appearance:ECOG PERFORMANCE STATUS: 1- Restricted in physically strenuous activity. Carries out light duty. Patient in NAD. Skin: Skin color, texture, turgor normal. No rashes or lesions. Eyes: Anicteric sclera. Pupils are equally round and reactive to light. Extraocular movements are intact. Lymph Nodes: No cervical, supraclavicular, axillary or inguinal adenopathy. Oropharynx: Lips, mucosa, and tongue normal. Back: No pain to percussion. Negative SLR test Lungs clear to auscultation, No wheezing or rhonchi Heart: RRR without murmur, gallop, or rubs. Abdomen soft, non-tender. No masses, organomegaly Extremities: No deformities. No edema Neuro: Gait and speech normal. Reflexes normal and symmetric. Muscular strength intact. Sensation grossly intact. Rectal: Deferred : Deferred LABS: Glucose (mg/dL) Date Value 11/10/2023 101 Potassium (mmol/L) Date Value 11/10/2023 3.5 Sodium (mmol/L) Date Value 11/10/2023 141 Chloride (mmol/L) Date Value 11/10/2023 102 CO2 (mmol/L) Date Value 11/10/2023 28 Creatinine (mg/dL) Date Value 11/10/2023 0.60 BUN (mg/dL) Date Value 11/10/2023 8 Anion Gap (mmol/L) Date Value 11/10/2023 11 Calcium, Total (mg/dL) Date Value 11/10/2023 9.0 Protein, Total (g/dL) Date Value 11/06/2023 7.6 Albumin (g/dL) Date Value 11/06/2023 4.7 Bilirubin, Total (mg/dL) Date Value 11/06/2023 0.8 Alkaline Phosphatase (U/L) Date Value 11/06/2023 100 AST (U/L) Date Value 11/06/2023 39 ALT (U/L) Date Value 11/06/2023 32 WBC Date Value Ref Range Status 02/06/2024 4.40 3.70 - 11.00 k/uL Final RBC Date Value Ref Range Status 02/06/2024 3.94 3.90 - 5.20 m/uL Final Hemoglobin Date Value Ref Range Status 02/06/2024 11.4 (L) 11.5 - 15.5 g/dL Final Hematocrit Date Value Ref Range Status 02/06/2024 36.0 36.0 - 46.0 % Final MCV Date Value Ref Range Status 02/06/2024 91.4 80.0 - 100.0 fL Final MCH Date Value Ref Range Status 02/06/2024 28.9 26.0 - 34.0 pg Final MCHC Date Value Ref Range Status 02/06/2024 31.7 30.5 - 36.0 g/dL Final RDW-CV Date Value Ref Range Status 02/06/2024 14.1 11.5 - 15.0 % Final Platelet Count Date Value Ref Range Status 02/06/2024 258 150 - 400 k/uL Final MPV Date Value Ref Range Status 02/06/2024 8.3 (L) 9.0 - 12.7 fL Final Abs Neut Date Value Ref Range Status 02/06/2024 2.62 1.45 - 7.50 k/uL Final Lymphocytes % Date Value Ref Range Status 02/06/2024 22.5 % Final Abs Lymph Date Value Ref Range Status 02/06/2024 0.99 (L) 1.00 - 4.00 k/uL Final Monocytes % Date Value Ref Range Status 02/06/2024 6.6 % Final Abs Mcintosh Date Value Ref Range Status 02/06/2024 0.29 <0.87 k/uL Final Abs Eosin Date Value Ref Range Status 02/06/2024 0.45 <0.46 k/uL Final Basophils % Date Value Ref Range Status 02/06/2024 0.9 % Final Abs Baso Date Value Ref Range Status 02/06/2024 0.04 <0.11 k/uL Final PATH: Colonoscopy 02/2023: 08/2023 LAR: Synoptic Report COLON AND RECTUM: Resection, Including Transanal Disk Excision of Rectal Neoplasms 8th Edition - Protocol posted: 12/29/2021 COLON AND RECTUM: RESECTION - All Specimens SPECIMEN Procedure Low anterior resection Macroscopic Evaluation of Mesorectum Complete TUMOR Tumor Site Rectum Rectal Tumor Location Entirely below anterior peritoneal reflection Histologic Type No evidence of residual invasive adenocarcinoma Histologic Grade No evidence of residual invasive adenocarcinoma Tumor Size Cannot be determined: No evidence of residual invasive adenocarcinoma Tumor Extent No evidence of primary tumor Macroscopic Tumor Perforation Not identified Lymphovascular Invasion Not identified Perineural Invasion Not identified Treatment Effect Present, with no viable cancer cells (complete response, score 0) MARGINS Margin Status for Invasive Carcinoma All margins negative for invasive carcinoma Distance from Invasive Carcinoma to Radial (Circumferential) Margin No evidence of residual invasive adenocarcinoma Distance from Invasive Carcinoma to Distal Margin No evidence of residual invasive adenocarcinoma Margin Status for Non-Invasive Tumor All margins negative for high-grade dysplasia / intramucosal carcinoma and low-grade dysplasia REGIONAL LYMPH NODES Regional Lymph Node Status All regional lymph nodes negative for tumor Number of Lymph Nodes Examined 15 Tumor Deposits Not identified PATHOLOGIC STAGE CLASSIFICATION (pTNM, AJCC 8th Edition) Reporting of pT, pN, and (when applicable) pM categories is based on information available to the pathologist at the time the report is issued. As per the AJCC (Chapter 1, 8th Ed.) it is the managing physician s responsibility to establish the final pathologic stage based upon all pertinent information, including but potentially not limited to this pathology report. TNM Descriptors y (post-treatment) pT Category pT0 pN Category pN0 Imaging: CT Scan of the Chest and Abdomen and Pelvis 02/2023: MRI rectum 03/2023: 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 Stage: T3c N+ MRF: Involved (tumor margin within 1 mm of MRF Sphincter involvement: No. Suspicious extra mesorectal lymph nodes: Yes EMVI: Yes. MRI Rectum 06/12/2023: Decrease in size of mid rectal mass with some post-treatment fibrosis but with residual viable tumor present. Resolution of prior EMVI. A single residual mesorectal node remains borderline in size (although decreased since the baseline study). Remainder of the previously noted nodes are no longer present. 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 Since 03/15/2023, post treatment primary tumor assessment: Incomplete response (likely residual tumor). mrTRG: Grade 3 - Moderate response Suspicious Mesorectal lymph nodes: Yes. Suspicious Extramesorectal lymph nodes: No. Assessment and Plan: Evan Gill is a 67 year old year old female here for follow up. MRI Staged T3c,N+,M0 mid to low rectal cancer. Discussed the rational and toxicity of STACY . She had started Xeloda and radiation 03/29/2023 and presented with what sounds like a coronary spasm, concerning for 5 fu induced. She is off the Xeloda and completed radiation only 05/10/2023. Saw cardiology and stress test was negative and they felt a 5FU challenge is reasonable. She had MRI and sigmoidoscopy with response and discussed options and discussed 4 months of FOLFOX. Discussed the cardiac and heme and neurotoxicity in detail and she agrees and strarted FOLFOX 07/05/2023- She could not tolerate the chemo after 1 dose and we elected to proceed with surgical resection which was performed on 08/25/2023 complicated by SBO. She had a complete Path CR. Signatera 10/2023 negative Will check signatera and labs today See back in 3 months for surveillance and also repeat Signatera Thank you for the kind referral. If there are any questions and or concerns please do not hesitate to contact me at [phone]. Darnell Corona MD Hematology/Medical Oncology [facility] I spent a total of 30 minutes on the date of the service which included preparing to see the patient, [id number] patient care, completing clinical documentation, obtaining and/or reviewing separately obtained history, performing a medically appropriate examination, counseling and educating the patient/family/caregiver, and ordering medications, tests, or procedures. CC: documented in this encounter [facility] 01-16-2024 Telephone encounter Note Returned call. She states that at her old stoma site has a new little opening that drained some blood so she put a guaze on it. No redness around site. No fever or chills. No puss like drainage. No signs of a current infection. I informed her that she can just keep the area clean and dry and watch the site herself or she can come into the office this week for an exam. She states she would rather just monitor it herself and keep the area clean and dry. Her is currently in the ICU with sepsis and she would like to focus on him at this time. She was appreciative of the call. She will call the office back with any questions or concerns. [facility] 01-16-2024 Miscellaneous Notes Returned call. She states that at her old stoma site has a new little opening that drained some blood so she put a guaze on it. No redness around site. No fever or chills. No puss like drainage. No signs of a current infection. I informed her that she can just keep the area clean and dry and watch the site herself or she can come into the office this week for an exam. She states she would rather just monitor it herself and keep the area clean and dry. Her is currently in the ICU with sepsis and she would like to focus on him at this time. She was appreciative of the call. She will call the office back with any questions or concerns. Patient called in and has a small opening at her surgical site. Patient had a reversal with Dr. Singer on November 05. Contact# [phone] documented in this encounter [facility] 01-16-2024 Telephone encounter Note Patient called in and has a small opening at her surgical site. Patient had a reversal with Dr. Singer on November 05. Contact# [phone] [facility] 01-09-2024 History of Presen t illness Narrative COLORECTAL SURGERY January 09, 2024 Evan Gill Chief Complaint: follow up visit History of Present Illness: Evan Gill is a 68 year old female presents to the office for a follow up evaluation after undergoing a Flexible Sigmoidoscopy, Ileostomy Closure on 11/08/2023. She was last seen in the office with Maki Salmeron NP on 11/24/23. H/o rectal cancer s/p STACY, LAR to pelvic floor with DLI 08/2023. Wound/incision concerns: none LARS evaluation: Cannot control flatus? Yes, at least once per week. 2-3 times daily Accidental leakage of liquid stool? No, never How often do you move your bowels? 1-3 times daily, rarely will go longer than a day without a bowel movement Do you every have to move your bowels within 1 hour of another bowel movement? Yes, at least once per week. Approx 3x weekly Do you ever have such a strong urge to move your bowels that you have to fowler to the toilet? Yes, at least once per week. Most bowel movements require rushing to the toilet Taking Miralax + dulcolax PRN, requiring less than 1x monthly. FINAL DIAGNOSIS Ileostomy, excision: - Enterocutaneous tissue with focal nonspecific inflammatory changes and mucosal erosion, consistent with ostomy site. PAST MEDICAL HISTORY Diagnosis Date Constipation Diverticulosis Malignant melanoma (HCC) Rectal cancer (HCC) PAST SURGICAL HISTORY Procedure Laterality Date COLONOSCOPY PAST SURGICAL HISTORY OF Right knee surgery PAST SURGICAL HISTORY OF skin lesion removed melanoma REMOVAL GALLBLADDER Current Outpatient Medications Medication Sig Dispense Refill Amoxicillin 500 mg tablet FOR DENTAL WORK omeprazole (PRILOSEC) 40 mg capsule Take 40 mg by mouth once daily. ondansetron orally disintegrating (ZOFRAN ODT) 8 mg disintegrating tablet Take 1 tablet by mouth every 8 hours as needed for nausea/vomiting. 90 tablet 2 vortioxetine (TRINTELLIX) 10 mg tablet Take 10 mg by mouth once daily. oxybutynin ER (DITROPAN XL) 15 mg 24 hr Extended Rel Tab Take 15 mg by mouth. aspirin, enteric coated (ASPIRIN, ENTERIC COATED) 81 mg EC tablet Take 81 mg by mouth once daily. gabapentin (NEURONTIN) 100 mg capsule Take 1 capsule by mouth three times a day for 30 days. 90 capsule 0 ibuprofen (MOTRIN) 400 mg tablet Take 1 tablet by mouth every 8 hours. 20 tablet 0 acetaminophen (TYLENOL) 500 mg tablet Take 2 tablets by mouth every 8 hours. 100 tablet 0 nitroglycerin sublingual (NITROQUICK) 0.4 mg SL tablet Dissolve 1 tablet under the tongue as needed for chest pain, may repeat every 5 minutes if no relief up to 3 times. 25 tablet 0 vitamin D3/vitamin K2, MK4, (K2 PLUS D3 ORAL) Take 1 Dose by mouth once daily. compounded progesterone 50 mg capsule Take 150 mg by mouth daily at bedtime. Testosterone 12.5 mg/ 1.25 gram (1 %) glpm Apply 2 Pump as directed once daily. 0.5 MIL prochlorperazine (COMPAZINE) 10 mg tablet Take 1 tablet by mouth every 6 hours as needed. 100 tablet 2 ondansetron (ZOFRAN) 8 mg tablet Take 1 tablet by mouth every 8 hours as needed for nausea/vomiting. 90 tablet 2 docosahexaenoic acid/epa (FISH OIL ORAL) Take 2,000 mg by mouth two times a day. calcium carbonate/vitamin d3(CALCIUM 600 WITH VITAMIN D3 600 MG (1,500 MG)-400 UNIT CAP) Take 1 tablet by mouth once daily. 0 No current facility-administered medications for this visit. ALLERGIES No Known Allergies FAMILY HISTORY Problem Relation Age of Onset Hypertension Mother Lung Cancer Mother Coronary Artery Disease Father Hypertension Father Heart disease Father Hyperlipidemia Father Emphysema Father Social History Tobacco Use Smoking status: Never Passive exposure: Past Smokeless tobacco: Never Vaping Use Vaping Use: Never used Substance Use Topics Alcohol use: Yes Comment: 2 times a month if that Drug use: Never Physical Exam: BP 131/79 (BP Site: Right Arm, BP Position: Sitting) Pulse 64 Temp 36.6 C (97.8 F) Wt 64 kg (141 lb) SpO2 99% BMI 24.20 kg/m General Appearance: Well appearing, alert, in no acute distress, well-hydrated, well nourished. Abdomen: soft, non-tender, non-distended, incision and prior ostomy site healing healing well with minimal residual erythema to ostomy site Anorectal: External exam reveals normal anoderm and external hemorrhoids. Digital rectal exam reveals normal anal tone, normal increase with squeeze and normal relaxation with Valsalva. Fibroepithelial tags palpable at dentate line. Surgical anastomosis palpable 4 cm from the anal verge with mild stenosis, but able to pass a digit. Still Operator Batch Or Continuous present: Yes, KAYA Sykesshank turner Assessment and Plan: Evan Gill is a 68 year old female presents to the office for a follow up evaluation after undergoing a Flexible Sigmoidoscopy, Ileostomy Closure on 11/08/2023. H/o rectal cancer s/p STACY, LAR to pelvic floor with DLI 08/2023. Having issues with clustering of stools and urgency consistent with mild low anterior resection syndrome. Also intermittently constipated requiring miralax + dulcolax. Recommend low dose scheduled miralax. - Primary surveillance per Dr. Corona - Colonoscopy 08/2024 (Dr. Greene) - 1/2 cap of miralax daily - Follow-up in 1 year or sooner if needed Medical Decision Making: Data Reviewed: Tests & Documents Reviewed/ordered: Review of prior notes from Colorectal Surgery, Heme/Onc Review of prior operative reports Review of Pathology Review of Imaging: CT Abdomen, CT Pelvis, GG Enema XR Review of Labs: CBC, BMP, CEA Review of Procedures / Tests: Colonoscopy Assessment by: Caregiver I have independently interpreted: CT Abdomen, CT Pelvis I have discussed Evan Gill's treatment plan and/or results with patient. I spent a total of 30 minutes on the date of the service which included preparing to see the patient, [id number] patient care, completing clinical documentation, obtaining and/or reviewing separately obtained history, performing a medically appropriate examination, counseling and educating the patient/family/caregiver, and care coordination (not separately reported). Laisha Singer MD Colorectal Surgery documented in this encounter [facility] 01-09-2024 Note [facility] 01-08-2024 Telephone encounter Note Pt calls stating she received a call from [facility] to schedule a date to come out and draw labs. Pt asking if this is needed. Explained to pt that she is scheduled to have it drawn here in the office on 01/30 at her follow up visit and that they do not need to go to the home to do it. Pt is agreeable to this and states she will call them to let them know that she'll just do it in the office with her other labs that day. Colleen Solorio RN [facility] Work Phone: 01-08-2024 Miscellaneous Notes Pt calls stating she received a call from [facility] to schedule a date to come out and draw labs. Pt asking if this is needed. Explained to pt that she is scheduled to have it drawn here in the office on 01/30 at her follow up visit and that they do not need to go to the home to do it. Pt is agreeable to this and states she will call them to let them know that she'll just do it in the office with her other labs that day. Colleen Solorio RN documented in this encounter [facility] 12-20-2023 Telephone encounter Note Pt calls stating she's scheduled to have a consult with on 01/16 to have port removed. Colleen Solorio RN [facility] Work Phone: 12-20-2023 Miscellaneous Notes Pt calls stating she's scheduled to have a consult with on 01/16 to have port removed. Colleen Solorio RN Called Evan to see if she had gotten their message to call to schedule. She did not so I gave her their phone number to call and get that scheduled. Order was received and they did call patient. Waiting on [place] response to get scheduled. Refaxed order 12/18/2023 at 9:50 am. I was told as soon as they get the order they will call the patient. Faxed order to , will call office to make sure they got it and scheduling information. Please sign order. Thanks!! Prachi Gill RN Hi there, I would be happy to get this removal started, could you please enter an order for me? Thank you Kristin Please arrange for port removal. Prachi Gill RN Yes. Please remove Pt is wondering when she can get her port removed? She had it placed for 5FU which she was unable to tolerate. Is it ok to have this removed at this point? Even at her inpatient admissions/surgeries, they have not used her port. Please advise. Thank you Prachi Gill RN documented in this encounter [facility] 12-20-2023 Telephone encounter Note Called Evan to see if she had gotten their message to call to schedule. She did not so I gave her their phone number to call and get that scheduled. [facility] 12-19-2023 Telephone encounter Note Order was received and they did call patient. Waiting on Rhondas response to get scheduled. [facility] 12-18-2023 Telephone encounter Note Refaxed order 12/18/2023 at 9:50 am. I was told as soon as they get the order they will call the patient. [facility] 12-14-2023 Telephone encounter Note Faxed order to , will call office to make sure they got it and scheduling information. [facility] 12-13-2023 Telephone encounter Note Please sign order. Thanks!! Prachi Gill RN [facility] 12-13-2023 Telephone encounter Note Hi there, I would be happy to get this removal started, could you please enter an order for me? Thank you Kristin T [facility] 12-13-2023 Telephone encounter Note Please arrange for port removal. Prachi Gill RN [facility] 12-12-2023 Telephone encounter Note Yes. Please remove [facility] 12-12-2023 Telephone encounter Note Pt is wondering when she can get her port removed? She had it placed for 5FU which she was unable to tolerate. Is it ok to have this removed at this point? Even at her inpatient admissions/surgeries, they have not used her port. Please advise. Thank you Prachi Gill RN [facility] 11-24-2023 History of Presen t illness Narrative COLORECTAL SURGERY November 24, 2023 Evan Gill 68 year old This consult was requested by Dr. Singer and my final recommendations will be communicated to the requesting health care provider by way of the shared medical record for internal providers or letter via the [employer] for external providers. Chief Complaint: post-op visit History of Present Illness: Evan Gill is a 68 year old female s/p a Flexible Sigmoidoscopy, Ileostomy Closure on 11/08/[address] Singer. She presents today for her post-op visit. Feeling very well today. Denies new or worsening pain, the right-sided nerve type pain she has been experiencing since surgery has started to improve since she started on gabapentin. She still experiences small twinges of pain periodically and asks if her gabapentin can be increased slightly. Discussed increasing to 200 mg 3 times daily, will discuss with Dr. Singer. Denies fevers and chills. Denies nausea out of the ordinary from her baseline (has been nauseated occasionally since chemotherapy) in the morning, this has not worsened, no emesis. Bowel movements are small and semiformed, small-volume, feels like she needs to have several bowel movements 1 after another. We discussed adding a fiber supplement daily to help with this concern. She reports that several days after she got home from the hospital she had a large painless lump on her abdominal wall near her stoma closure site. She had a hot shower and put heating pad on, later in the day she felt a sudden gush of fluid from the area. We discussed this was likely a seroma. Denies any infectious type concerns. We discussed lifting and activity restrictions as well as diet advancement in detail. PAST MEDICAL HISTORY Diagnosis Date Constipation Diverticulosis Malignant melanoma (HCC) Rectal cancer (HCC) PAST SURGICAL HISTORY Procedure Laterality Date COLONOSCOPY PAST SURGICAL HISTORY OF Right knee surgery PAST SURGICAL HISTORY OF skin lesion removed melanoma REMOVAL GALLBLADDER Current Outpatient Medications Medication Sig Dispense Refill gabapentin (NEURONTIN) 100 mg capsule Take 1 capsule by mouth three times a day for 30 days. 90 capsule 0 ibuprofen (MOTRIN) 400 mg tablet Take 1 tablet by mouth every 8 hours. 20 tablet 0 Bacillus coagulan-calcium carb (DIGESTIVE ADVANTAGE PROBIOTIC) 2 billion cell- 140 mg cap Take 1 capsule by mouth once daily. Patient should start on November 10, 2023. 30 capsule 0 acetaminophen (TYLENOL) 500 mg tablet Take 2 tablets by mouth every 8 hours. 100 tablet 0 nitroglycerin sublingual (NITROQUICK) 0.4 mg SL tablet Dissolve 1 tablet under the tongue as needed for chest pain, may repeat every 5 minutes if no relief up to 3 times. 25 tablet 0 Amoxicillin 500 mg tablet FOR DENTAL WORK (Patient not taking: Reported on 10/10/2023) omeprazole (PRILOSEC) 40 mg capsule Take 40 mg by mouth once daily. vitamin D3/vitamin K2, MK4, (K2 PLUS D3 ORAL) Take 1 Dose by mouth once daily. compounded progesterone 50 mg capsule Take 150 mg by mouth daily at bedtime. Testosterone 12.5 mg/ 1.25 gram (1 %) glpm Apply 2 Pump as directed once daily. 0.5 MIL ondansetron orally disintegrating (ZOFRAN ODT) 8 mg disintegrating tablet Take 1 tablet by mouth every 8 hours as needed for nausea/vomiting. 90 tablet 2 prochlorperazine (COMPAZINE) 10 mg tablet Take 1 tablet by mouth every 6 hours as needed. 100 tablet 2 ondansetron (ZOFRAN) 8 mg tablet Take 1 tablet by mouth every 8 hours as needed for nausea/vomiting. 90 tablet 2 vortioxetine (TRINTELLIX) 10 mg tablet Take 10 mg by mouth once daily. oxybutynin ER (DITROPAN XL) 15 mg 24 hr Extended Rel Tab Take 15 mg by mouth. aspirin, enteric coated (ASPIRIN, ENTERIC COATED) 81 mg EC tablet Take 81 mg by mouth once daily. docosahexaenoic acid/epa (FISH OIL ORAL) Take 2,000 mg by mouth two times a day. calcium carbonate/vitamin d3(CALCIUM 600 WITH VITAMIN D3 600 MG (1,500 MG)-400 UNIT CAP) Take 1 tablet by mouth once daily. 0 No current facility-administered medications for this visit. ALLERGIES No Known Allergies FAMILY HISTORY Problem Relation Age of Onset Hypertension Mother Lung Cancer Mother Coronary Artery Disease Father Hypertension Father Heart disease Father Hyperlipidemia Father Emphysema Father Social History Tobacco Use Smoking status: Never Passive exposure: Past Smokeless tobacco: Never Vaping Use Vaping Use: Never used Substance Use Topics Alcohol use: Not Currently Comment: 2 times a month if that Drug use: Never Physical Exam: BP 122/56 (BP Site: Left Arm, BP Position: Sitting) Pulse (!) 57 Temp 36.3 C (97.3 F) Ht 162.6 cm (5' 4 ) Wt 64 kg (141 lb) BMI 24.20 kg/m General Appearance: Well appearing, alert, in no acute distress, well-hydrated, well nourished. Abdomen: soft, non-distended, non-tender. Stoma closure wound with small tail of suture exposed, cut to skin level, healing well otherwise. Surrounding tissue soft, scant serous drainage. No evidence of a seroma at this time. Assessment Assessment and Plan: Evan Gill is a 68 year old female s/p a Flexible Sigmoidoscopy, Ileostomy Closure on 11/08/2023. -doing well post-op, expected recovery course. -OK to slowly advance diet as tolerated. -continue lifting and activity restrictions for 4-6 weeks post-op. Fiber supplement daily for small frequent bowel movements. -OK to increase gabapentin to 200mg TID for nerve pain concern. Will discuss manager intermediate management with Dr. Singer. -continue probiotics for 1 month post-op. -further follow up with Dr. Singer in 3 months, scheduled for the patient today. Medical Decision Making: Data Reviewed: Tests & Documents Reviewed/ordered: Review of prior notes from hospitalization Review of prior operative reports Review of Pathology I have independently interpreted: n/a I have discussed Evan Gill's treatment plan and/or results with the patient, Dr. Singer. Risk of morbidity, mortality and/or complications of treatment plan: logan Salmeron APRN.WINDOWS CONSULTANT Colorectal Surgery documented in this encounter [facility] 11-24-2023 Note [facility] 11-21-2023 Telephone encounter Note Orders placed. [facility] 11-21-2023 Miscellaneous Notes Orders placed. documented in this encounter [facility] 11-13-2023 Telephone encounter Note DISCHARGE CALL BACK Today's date: November 13, 2023 Notified of Pt discharge by: hosp ADT folder Patient discharged on 11/10/23 from [facility] Primary Cancer Diagnosis: rectal cancer Admitting Diagnosis: small bowel obstruction Discharge Summary/SBAR reviewed: Yes Handoff Discussed with Transitional Vice President Tax: No, unavailable Psychosocial Risk Factors: None If patient discharged to SNF/Rehab Facility, phone call completed to reinforce discharge instructions and follow up: N/A Call Disposition: Called patient and spoke with patient Patient identified by name and date of . YES Patient with symptom issues: No Pain: No=0 (pain 0 on a scale of 0-10). Is patient followed by Palliative Medicine? No Palliative Medicine follow up: N/A Any new barriers to care identified? No Any new referrals needed? No Social Work Follow-Up visit scheduled? No Does the patient need interventions no or same day appointment: No MEDICATION ADHERENCE Patient discharged with prescriptions? Yes, probiotic, oxycodone, ibuprofen Discharge prescriptions filled: Yes Patient understands when to take prescriptions: Yes FOLLOW UP Patient scheduled for follow-up appointment within 5 business days of discharge? No, Scheduled at discharge Patient reminded of follow-up appointment with [facility] provider, Dr Corona on 01/16/24: Yes Discussed with patient how she is doing. Pt states she's happy to be home and feeling a little better everyday. She states she's just taking it one day at a time. Pt is happy to have her ostomy bag gone. Pt is very appreciative of the phone call and states Dr Corona called her as well to see how she was doing. PATIENT EDUCATION / REINFORCEMENT Patient verbalizes understanding of when to seek Medical Attention? YES Patient verbalizes understanding of after hours and weekend phone number? YES Colleen Solorio RN [facility] Work Phone: 11-13-2023 Miscellaneous Notes DISCHARGE CALL BACK Today's date: November 13, 2023 Notified of Pt discharge by: hosp ADT folder Patient discharged on 11/10/23 from [facility] Primary Cancer Diagnosis: rectal cancer Admitting Diagnosis: small bowel obstruction Discharge Summary/SBAR reviewed: Yes Handoff Discussed with Transitional Vice President Tax: No, unavailable Psychosocial Risk Factors: None If patient discharged to SNF/Rehab Facility, phone call completed to reinforce discharge instructions and follow up: N/A Call Disposition: Called patient and spoke with patient Patient identified by name and date of . YES Patient with symptom issues: No Pain: No=0 (pain 0 on a scale of 0-10). Is patient followed by Palliative Medicine? No Palliative Medicine follow up: N/A Any new barriers to care identified? No Any new referrals needed? No Social Work Follow-Up visit scheduled? No Does the patient need interventions no or same day appointment: No MEDICATION ADHERENCE Patient discharged with prescriptions? Yes, probiotic, oxycodone, ibuprofen Discharge prescriptions filled: Yes Patient understands when to take prescriptions: Yes FOLLOW UP Patient scheduled for follow-up appointment within 5 business days of discharge? No, Scheduled at discharge Patient reminded of follow-up appointment with [facility] provider, Dr Corona on 01/16/24: Yes Discussed with patient how she is doing. Pt states she's happy to be home and feeling a little better everyday. She states she's just taking it one day at a time. Pt is happy to have her ostomy bag gone. Pt is very appreciative of the phone call and states Dr Corona called her as well to see how she was doing. PATIENT EDUCATION / REINFORCEMENT Patient verbalizes understanding of when to seek Medical Attention? YES Patient verbalizes understanding of after hours and weekend phone number? YES Colleen Solorio RN documented in this encounter [facility] 11-10-2023 Note [facility] 11-10-2023 Note [facility] 11-10-2023 Telephone encounter Note [facility] results received and pt notified that this was negative. Colleen Solorio RN [facility] Work Phone: 11-10-2023 Miscellaneous Notes [facility] results received and pt notified that this was negative. Colleen Solorio RN Call placed to [facility] to follow up on results. They have not received results yet from [facility]. Called and spoke with Daksha at [facility]. She states this testing is still in progress. Blood sample received 10/11, tissue sample received 10/18. Final report should be available in 3-4 wks from 4/11 if no repeat or redraws are needed (which would be 11/08-11/15). Colleen Solorio RN [facility] calls back stating she looked into this a little further and she did send this specimen out on 10/18/23. Colleen Solorio RN Call placed to [facility] to see if this has been sent out yet. She states it has not. Request faxed to [facility] pathology again, as well as the [facility] order. Colleen Solorio RN Call received from Sonia at [facility] pathology stating they haven't ordered Signatera before. Order signed and faxed to [facility] as well as Sonia at [facility]. Colleen Solorio RN Email received that there is no residual tumor for [facility] to be ordered on [id number]. Discussed with Dr Corona and he would like this added to [facility] [id number]. Request faxed to [facility] today. Colleen Solorio RN documented in this encounter [facility] 11-09-2023 Note [facility] 11-09-2023 Note [facility] 11-08-2023 Note [facility] 11-08-2023 Note [facility] 11-08-2023 Note [facility] 11-08-2023 Note [facility] 11-07-2023 Note [facility] 11-06-2023 Telephone encounter Note Noted. Informed team that she will be coming to the emergency room for concerns of a bowel obstruction. [facility] 11-06-2023 Miscellaneous Notes Noted. Informed team that she will be coming to the emergency room for concerns of a bowel obstruction. Patients Mom called in and patient is experiencing a possible bowel obstruction again. Patient was told by Dr Eckert to try to insert a glycerin suppository in to the stoma if she starts to have the symptoms/cramping/decreased. Mom stated she did and patient is having little movement. Patient is having abdominal again as well. Patient is seeing Dr. Singer tomorrow in clinic. Contact# [phone] documented in this encounter [facility] 11-06-2023 Telephone encounter Note Oh no and thanks for the update [facility] 11-06-2023 Miscellaneous Notes Oh no and thanks for the update Pt's daughter notified of results. Daughter states pt is currently in the ER at [facility] with a possible bowel obstruction. Pt was scheduled for follow up appointment with Dr Singer tomorrow so they are hopeful that she'll be able to see her today. Colleen Solorio RN ----- Message from Darnell Corona MD sent at 11/06/2023 7:12 AM EDT ----- Please call with negative Signatera documented in this encounter [facility] 11-06-2023 Telephone encounter Note Pt's daughter notified of results. Daughter states pt is currently in the ER at [facility] with a possible bowel obstruction. Pt was scheduled for follow up appointment with Dr Singer tomorrow so they are hopeful that she'll be able to see her today. Colleen Solorio RN [facility] Work Phone: 11-06-2023 Telephone encounter Note ----- Message from Darnell Corona MD sent at 11/06/2023 7:12 AM EDT ----- Please call with negative Signatera [facility] 11-06-2023 Telephone encounter Note Patients Mom called in and patient is experiencing a possible bowel obstruction again. Patient was told by Dr Eckert to try to insert a glycerin suppository in to the stoma if she starts to have the symptoms/cramping/decreased. Mom stated she did and patient is having little movement. Patient is having abdominal again as well. Patient is seeing Dr. Singer tomorrow in clinic. Contact# [phone] [facility] 11-02-2023 Telephone encounter Note Call placed to [facility] to follow up on results. They have not received results yet from [facility]. Called and spoke with Daksha at [facility]. She states this testing is still in progress. Blood sample received 10/11, tissue sample received 10/18. Final report should be available in 3-4 wks from 10/18 if no repeat or redraws are needed (which would be 11/08-11/15). Colleen Solorio RN [facility] 10-28-2023 Progress note Note Date/Time October 28, 2023 10:25am [facility] [address] [place] [address] General Surgery Progress Note Signed Patient: Evan Gill MR#: [id number] : 1955 Acct:[id number] Age/Sex: 68 / F Adm Date: 4 Loc: Room: [address] [place] [address] Type: ADM IN Attending Dr: Jm Trujillo DO Copies to: ~ Date of Service: 10/28/2023 Subjective Subjective HPI: Patient is doing really well. She is not having any nausea or vomiting. She iseating without any difficulty. She has had good ileostomy output. Occasionallyshe gets little bit of cramping but that is not unusual for her. She is not having any of the problems that she had when she came. Allergies & Medications Medications and Allergies Allergies No Known Allergies Allergy (Verified 10/25/23 20:17) Home Medications aspirin 81 mg tablet,delayed release 81 mg PO DAILY health maintenance 11/02/18 [History Confirmed 10/26/23] omega 5-ldy-wws-fish oil 1,000 mg (120 mg-180 mg) capsule (Fish Oil) 1 cap PO DAILY 11/02/18 [History Confirmed 10/26/23] oxybutynin chloride 15 mg tablet,extended release 24 hr 15 mg PO DAILY 11/02/18 [History Confirmed 10/26/23] lactobacillus comb no.10 20 billion cell capsule (Probiotic) 20,000 mmu cells PODAILY 03/06/23 [History Confirmed 10/26/23] magnesium 500 mg tablet 500 mg PO DAILY 03/06/23 [History Confirmed 10/26/23] meloxicam 15 mg tablet 15 mg PO DAILY 03/06/23 [History Confirmed 10/26/23] vortioxetine 5 mg tablet (Trintellix) 5 mg PO DAILY 03/06/23 [History Confirmed 10/26/23] ondansetron 8 mg disintegrating tablet 8 mg PO Q8H PRN Nausea 04/05/23 [History Confirmed 10/26/23] prochlorperazine maleate 10 mg tablet (Compazine) 10 mg PO Q6H PRN Nausea 04/05/23 [History Confirmed 10/26/23] omeprazole 40 mg capsule,delayed release 40 mg PO DAILY 04/06/23 [History Confirmed 10/26/23] denosumab 60 mg/mL subcutaneous syringe (Prolia) 60 mg subcut [id number] 06/26/23 [History Confirmed 10/26/23] progesterone micronized 100 mg capsule 150 mg PO DAILY 06/26/23 [History Confirmed 10/26/23] amlodipine 5 mg-benazepril 10 mg capsule 1 cap PO DAILY 09/30/23 [History Confirmed 10/26/23] vortioxetine 5 mg tablet (Trintellix) 5 mg PO DAILY 10/26/23 [History Confirmed 10/26/23] Active Medications Hydromorphone HCl (Hydromorphone 0.5 Mg/0.5 Ml Syringe) 0.25 mg IV-PUSH Q4H PRN PRN Reason: Pain Scale 8 - 10 Last Admin: 10/27/23 21:00 Dose: 0.25 mg Pantoprazole Sodium (Pantoprazole 40 Mg Vial) 40 mg IV-PUSH DAILY [facility] Stop: 10/25/24 08:59 Last Admin: 10/27/23 09:06 Dose: 40 mg Prochlorperazine Edisylate (Prochlorperazine Edisylate 10 Mg/2 Ml Vial) 10 mg IV-PUSH Q4H PRN PRN Reason: Nausea And Vomiting Stop: 10/25/24 01:46 Last Admin: 10/26/23 20:59 Dose: 10 mg Sodium Chloride (Sodium Chloride 0.9 % 10 Ml Syringe) 0 ml IV-PUSH Q8H PRN PRN Reason: Flush Stop: 10/24/24 20:31 Last Admin: 10/27/23 09:06 Dose: 10 ml Sodium Chloride (Sodium Chloride 0.9 % 10 Ml Syringe) 0 ml IV-PUSH QSHIFT YUMIKO Stop: 10/25/24 05:59 Last Admin: 10/28/23 01:39 Dose: 10 ml Sodium Chloride (Sodium Chloride 0.9 % 10 Ml Vial.Pf) 10 ml INJECTION PRN PRN PRN Reason: Dilution Stop: 10/25/24 01:37 Last Admin: 10/28/23 01:39 Dose: 10 ml Sodium Chloride (Sodium Chloride 0.9 % 10 Ml Syringe) 10 ml IV-PUSH PRN PRN PRN Reason: Flush Stop: 10/25/24 01:37 Last Admin: 10/26/23 02:31 Dose: 10 ml Exam Physical Exam Vital Signs: Temp Pulse Resp BP Pulse Ox O2 Del Method 98.0 F 60 12 112/65 97 Room Air 10/28/23 08:05 10/28/23 08:05 10/28/23 08:05 10/28/23 08:05 10/28/23 08:05 10/28/23 08:05 Narrative: Patient is comfortable conversive pleasant. Heart is regular rate rhythm. Lungs are clear. Abdomen is soft nontender nondistended. Thin copious stool output from the ileostomy Objective Pain Assessment Lower Medial Abdomen: Pain Description: Intermittent Pain Intensity: 7 Intake & Output 24 hour I&O: Intake & Output 10/27/23 10/28/23 10/28/23 23:59 07:59 15:59 Intake Total 2280 / 4330 100 / 100 Output Total 500 / 2225 1100 / 1100 Balance 1780 / 2105 -1000 / -1000 Weight 67.6 kg Labs 10/28/23 05:39 10/28/23 05:39 Laboratory Results - Last 48 hrs. 10/28/23 05:39: Corrected WBC 5.6, Uncorrected WBC Count 5.6, RBC 3.56 L, Hgb 10.6 L, Hct 31.9 L, MCV 89.6, MCH 29.7, MCHC 33.2, RDW 14.9, Plt Count 294, MPV 6.4, Neut % (Auto) 66.8, Lymph % (Auto) 13.6, Mcintosh % (Auto) 11.9, Eos % (Auto) 7.1, Baso % (Auto) 0.6, Nucleat RBC Rel Count 0.1, Neut # (Auto) 3.8, Lymph # (Auto) 0.8 L, Mcintosh # (Auto) 0.7, Eos # (Auto) 0.4, Baso # (Auto) 0.0, PHA Creatinine Clear 61.83, Sodium 141, Potassium 3.9, Chloride 104, Carbon Dioxide 31.8 H, Anion Gap 9.1, BUN 11, Creatinine 0.60, Est GFR (CKD-EPI) > 60.0 10/27/23 06:33: POC Glucose 71 10/27/23 05:42: Corrected WBC 7.9, Uncorrected WBC Count 7.9, RBC 3.80, Hgb 11.4L, Hct 34.0, MCV 89.6, MCH 29.9, MCHC 33.4, RDW 15.3, Plt Count 304, MPV 6.5, Neut % (Auto) 72.0, Lymph % (Auto) 10.5, Mcintosh % (Auto) 11.5, Eos % (Auto) 5.6, Baso % (Auto) 0.4, Nucleat RBC Rel Count 0.0, Neut # (Auto) 5.7, Lymph # (Auto) 0.8 L, Mcintosh # (Auto) 0.9 H, Eos # (Auto) 0.4, Baso # (Auto) 0.0, PHA Creatinine Clear 56.50, Sodium 140, Potassium 3.7, Chloride 102, Carbon Dioxide 27.1, AnionGap 14.6, BUN 23, Creatinine 0.65, Est GFR (CKD-EPI) > 60.0 Microbiology Microbiology 10/25/23 22:37 Urine - Clean-Voided Midstream Urine Culture - Final 25,000 colonies/ml mixed bacterial skin contaminants 2 Days 10/25/23 23:19 Blood - Right Antecubital Blood Culture - Preliminary No Growth 2 Days 10/25/23 23:20 Blood - Right Hand Blood Culture - Preliminary No Growth 2 Days A&P - General Surgery Assessment/Plan (1) Complete small bowel obstruction: (2) Abdominal pain: (3) Vomiting: Plan Recurrent small bowel obstruction status post her low anterior resection, radiation and diverting loop ileostomy. Good ileostomy output and resolution ofsymptoms. She has tolerated GI soft diet. She can be discharged home from my standpoint. I discussed with patient seems that the ileostomy itself may be points of obstruction. With a gloved finger could likely probe the efferent (lumen where stool comes out) limb of her ileostomy to see if could open things up if she gets symptoms again. Again again additionally I discussed with her contacting her primary surgeon Dr. Singer to let her know about this episode and ifsooner reevaluation. Documented By: Ion Eckert DO 10/28/23 1023 Signed By: <Electronically signed by DO Ion Eckert> 10/28/23 1025 [facility] Work Phone: [phone] 332-331604-19-2024 Telephone encounter Note* Telephone Encounter - Colleen Solorio RN - 10/27/2023 3:47 PM EDT Sonia calls back stating she looked into this a little further and she did send this specimen out on 10/18/23. Colleen Solorio RN [facility]04-19-2024 Progress note Author Jm Trujillo [facility] October 27, 2023 10:34am Note Date/Time October 27, 2023 10: 34am [facility] [address] [place] [address] Hospitalist Progress Note Signed Patient: Evan Gill MR#: [id number] : 1955 Acct:[id number] Age/Sex: 68 / F Adm Date: 4 Loc: 4N Room: [address] [place] [address] Type: ADM IN Attending Dr: Jm Trujillo DO Copies to: ~ Date of Service: 10/27/2023 Subjective Subjective Narrative: The patient reports that after the suppository was placed into the ileostomy yesterday she began having movement. She said the material was very firm and thick at first. Now she is getting a lot of liquid. She says this is typical for her. Spasmodic pain in her intestines is much improved today. The last time she had to be medicated with pain medicine was last night. She did not have any nausea now. The nurses remove the NG tube the order of the general surgeon. The patient is beginning to eat a clear liquid diet. She denies other problems at this time: No fevers or chills. No chest pain. Nocough. No nausea. Exam Physical Exam Vital Signs: Temp Pulse Resp BP Pulse Ox O2 Del Method 97.6 F 79 15 105/69 97 Room Air 04/19/24 08:00 10/27/23 08:00 10/27/23 08:00 10/27/23 08:00 10/27/23 08:00 10/27/23 08:10 Narrative: General: Resting comfortably in bed. Visitor at the bedside. Pulmonary: Clear to auscultation bilaterally. Respirations calm and easy. Cardiac: Regular rate and rhythm to auscultation. GI: Today the ileostomy bag has a fair amount of dark brown liquid in it. No blood at all. No mucus. No solid fecal material is in there now, but I suspectthat most of that passed yesterday. To auscultation bowel sounds are still hypoactive. No pain to palpation throughout the abdomen. Objective Lab Results 10/27/23 05:42 10/27/23 05:42 Microbiology Results Microbiology 10/25/23 22:37 Urine - Clean-Voided Midstream Urine Culture - Preliminary <9,000 colonies/ml mixed bacterial skin contaminants 1 Day 10/25/23 23:19 Blood - Right Antecubital Blood Culture - Preliminary No Growth 1 Day 10/25/23 23:20 Blood - Right Hand Blood Culture - Preliminary No Growth 1 Day Meds Allergies and Active Meds Allergies No Known Allergies Allergy (Verified 10/25/23 20:17) Active Meds: Active Medications Generic Name Dose Route Start Last Admin Trade Name Freq PRN Reason Stop Dose Admin Lactated Ringer's 1,000 mls @ 100 mls/hr 10/26/23 01:45 10/27/23 05:41 Lactated Ringers IV 10/25/24 01:44 100 mls/hr .Q10H YUMIKO Administration Ceftriaxone Sodium 1 gm in 50 mls @ 100 mls/hr 10/26/23 02:30 10/27/23 01:56 Rocephin IV 100 mls/hr Q24H YUMIKO Administration Ondansetron HCl 4 mg 10/26/23 01:38 10/26/23 11:41 Ondansetron 4 Mg/2 Ml Vial IV-PUSH 10/25/24 01:37 4 mg Q6H PRN Administration Nausea And Vomiting Pantoprazole Sodium 40 mg 10/26/23 09:00 10/27/23 09:06 Pantoprazole 40 Mg Vial IV-PUSH 10/25/24 08:59 40 mg DAILY YUMIKO Administration Prochlorperazine Edisylate 10 mg 10/26/23 01:47 10/26/23 20:59 Prochlorperazine Edisylate 10 Mg/2 Ml Vial IV-PUSH 10/25/24 01:46 10 mg Q4H PRN Administration Nausea And Vomiting Sodium Chloride 0 ml 10/25/23 20:32 10/27/23 09:06 Sodium Chloride 0.9 % 10 Ml Syringe IV-PUSH 10/24/24 20:31 10 ml Q8H PRN Administration Flush Sodium Chloride 0 ml 10/26/23 06:00 10/27/23 05:41 Sodium Chloride 0.9 % 10 Ml Syringe IV-PUSH 10/25/24 05:59 10 ml QSHIFT YUMIKO Administration Sodium Chloride 10 ml 10/26/23 01:38 10/27/23 09:06 Sodium Chloride 0.9 % 10 Ml Vial.Pf INJECTION 10/25/24 01:37 10 ml PRN PRN Administration Dilution Sodium Chloride 10 ml 10/26/23 01:38 10/26/23 02:31 Sodium Chloride 0.9 % 10 Ml Syringe IV-PUSH 10/25/24 01:37 10 ml PRN PRN Administration Flush A&P - Hospitalist Assessment/Plan (1) Partial small bowel obstruction: (2) Acute UTI: Plan Partial small bowel obstruction With history of hemicolectomy with ileostomy status. Acute Abdominal pain ? NG tube removed today. -Encouraged patient to ambulate in the hallways is much as possible. -Stop IV fluids to encourage the ambulation. ? Ostomy care as needed Acute UTI?culture pending ? Ceftriaxone -1 g IV every 24 hours. ? Repeat CBC, BMP in a.m. Chronic conditions HTN Depression DVT PPx-SCDs Diet: Clear liquids today. Surgery said to consider advancement to the higher level of food only tomorrow. CODE STATUS-full code +++ +++ Patient requires continued inpatient stay in the hospital as she is only on a clear liquid diet. There is a risk that the ileostomy output may worsen again. She may need additional IV fluids, and she may need placement of the NG tube back into the stomach again if anything should worsen. This will be reevaluatedtomorrow morning after 24 hours more time in the hospital. Documented By: Jm Trujillo DO 1031 Signed By: <Electronically signed by Jm Trujillo DO> 10/27/23 1034 [facility] Work Phone: 1([phone] 131-618404-19-2024 Progress note Author Ion Santiagohenrycristal [facility] October 27, 2023 10:04am Note Date/Time October 27, 2023 10: 04am [facility] [address] [place] [address] General Surgery Progress Note Signed Patient: Evan Gill MR#: [id number] : 1955 Acct:[id number] Age/Sex: 68 / F Adm Date: 4 Loc: 4N Room: [address] [place] [address] Type: ADM IN Attending Dr: Jm Trujillo DO Copies to: ~ Date of Service: 10/27/2023 Subjective Subjective HPI: Patient is feeling a lot better. She is feeling basically like how she does when she is improving. She is having a lot of stool out of her ileostomy. Veryminimal abdominal discomfort, little bit of crampiness occasionally but that happens with her passage of stool. She is not having any nausea or vomiting. No fevers chills or sweats. No distention. Allergies & Medications Medications and Allergies Allergies No Known Allergies Allergy (Verified 10/25/23 20:17) Home Medications aspirin 81 mg tablet,delayed release 81 mg PO DAILY health maintenance 11/02/18 [History Confirmed 10/26/23] omega 3-rwj-kek-fish oil 1,000 mg (120 mg-180 mg) capsule (Fish Oil) 1 cap PO DAILY 11/02/18 [History Confirmed 10/26/23] oxybutynin chloride 15 mg tablet,extended release 24 hr 15 mg PO DAILY 11/02/18 [History Confirmed 10/26/23] lactobacillus comb no.10 20 billion cell capsule (Probiotic) 20,000 mmu cells PODAILY 03/06/23 [History Confirmed 10/26/23] magnesium 500 mg tablet 500 mg PO DAILY 03/06/23 [History Confirmed 10/26/23] meloxicam 15 mg tablet 15 mg PO DAILY 03/06/23 [History Confirmed 10/26/23] vortioxetine 5 mg tablet (Trintellix) 5 mg PO DAILY 03/06/23 [History Confirmed 10/26/23] ondansetron 8 mg disintegrating tablet 8 mg PO Q8H PRN Nausea 04/05/23 [History Confirmed 10/26/23] prochlorperazine maleate 10 mg tablet (Compazine) 10 mg PO Q6H PRN Nausea 04/05/23 [History Confirmed 10/26/23] omeprazole 40 mg capsule,delayed release 40 mg PO DAILY 04/06/23 [History Confirmed 10/26/23] denosumab 60 mg/mL subcutaneous syringe (Prolia) 60 mg subcut [id number] 06/26/23 [History Confirmed 10/26/23] progesterone micronized 100 mg capsule 150 mg PO DAILY 06/26/23 [History Confirmed 10/26/23] amlodipine 5 mg-benazepril 10 mg capsule 1 cap PO DAILY 09/30/23 [History Confirmed 10/26/23] vortioxetine 5 mg tablet (Trintellix) 5 mg PO DAILY 10/26/23 [History Confirmed 10/26/23] Active Medications Hydromorphone HCl (Hydromorphone 0.5 Mg/0.5 Ml Syringe) 0.5 mg IV-PUSH Q4H PRN PRN Reason: Pain Scale 8 - 10 Last Admin: 10/26/23 20:59 Dose: 0.5 mg Lactated Ringer's (Lactated Ringers) 1,000 mls @ 100 mls/hr IV .Q10H [facility] Stop: 10/25/24 01:44 Last Admin: 10/27/23 05:41 Dose: 100 mls/hr Ceftriaxone Sodium (Rocephin) 1 gm in 50 mls @ 100 mls/hr IV Q24H [facility] Last Admin: 10/27/23 01:56 Dose: 100 mls/hr Ondansetron HCl (Ondansetron 4 Mg/2 Ml Vial) 4 mg IV-PUSH Q6H PRN PRN Reason: Nausea And Vomiting Stop: 10/25/24 01:37 Last Admin: 10/26/23 11:41 Dose: 4 mg Pantoprazole Sodium (Pantoprazole 40 Mg Vial) 40 mg IV-PUSH DAILY [facility] Stop: 10/25/24 08:59 Last Admin: 10/27/23 09:06 Dose: 40 mg Prochlorperazine Edisylate (Prochlorperazine Edisylate 10 Mg/2 Ml Vial) 10 mg IV-PUSH Q4H PRN PRN Reason: Nausea And Vomiting Stop: 10/25/24 01:46 Last Admin: 10/26/23 20:59 Dose: 10 mg Sodium Chloride (Sodium Chloride 0.9 % 10 Ml Syringe) 0 ml IV-PUSH Q8H PRN PRN Reason: Flush Stop: 10/24/24 20:31 Last Admin: 10/27/23 09:06 Dose: 10 ml Sodium Chloride (Sodium Chloride 0.9 % 10 Ml Syringe) 0 ml IV-PUSH QSHIFT YUMIKO Stop: 10/25/24 05:59 Last Admin: 10/27/23 05:41 Dose: 10 ml Sodium Chloride (Sodium Chloride 0.9 % 10 Ml Vial.Pf) 10 ml INJECTION PRN PRN PRN Reason: Dilution Stop: 10/25/24 01:37 Last Admin: 10/27/23 09:06 Dose: 10 ml Sodium Chloride (Sodium Chloride 0.9 % 10 Ml Syringe) 10 ml IV-PUSH PRN PRN PRN Reason: Flush Stop: 10/25/24 01:37 Last Admin: 10/26/23 02:31 Dose: 10 ml Exam Physical Exam Vital Signs: Temp Pulse Resp BP Pulse Ox O2 Del Method 97.6 F 79 15 105/69 97 Room Air 10/27/23 08:00 10/27/23 08:00 10/27/23 08:00 10/27/23 08:00 10/27/23 08:00 10/27/23 08:10 Narrative: Patient is comfortable conversive pleasant. Heart is regular rate rhythm. Lungs are clear. Abdomen is soft nontender nondistended. Thin copious stool output from the ileostomy Objective Pain Assessment Lower Medial Abdomen: Pain Description: Constant, Aching and Soreness Pain Intensity: 3 Intake & Output 24 hour I&O: Intake & Output 10/26/23 10/27/23 10/27/23 23:59 07:59 15:59 Intake Total 1000 / 2150 1000 / 1000 Output Total 900 / 1700 1725 / 1725 Balance 100 / 450 -725 / -725 Weight 65.6 kg Labs 10/27/23 05:42 10/27/23 05:42 Laboratory Results - Last 48 hrs. 10/27/23 06:33: POC Glucose 71 10/27/23 05:42: Corrected WBC 7.9, Uncorrected WBC Count 7.9, RBC 3.80, Hgb 11.4L, Hct 34.0, MCV 89.6, MCH 29.9, MCHC 33.4, RDW 15.3, Plt Count 304, MPV 6.5, Neut % (Auto) 72.0, Lymph % (Auto) 10.5, Mcintosh % (Auto) 11.5, Eos % (Auto) 5.6, Baso % (Auto) 0.4, Nucleat RBC Rel Count 0.0, Neut # (Auto) 5.7, Lymph # (Auto) 0.8 L, Mcintosh # (Auto) 0.9 H, Eos # (Auto) 0.4, Baso # (Auto) 0.0, PHA Creatinine Clear 56.50, Sodium 140, Potassium 3.7, Chloride 102, Carbon Dioxide 27.1, AnionGap 14.6, BUN 23, Creatinine 0.65, Est GFR (CKD-EPI) > 60.0 10/26/23 06:11: Corrected WBC 10.6, Uncorrected WBC Count 10.6, RBC 4.19, Hgb 12.6, Hct 37.2, MCV 88.6, MCH 30.1, MCHC 33.9, RDW 15.7 H, Plt Count 343, MPV 6.3, Neut % (Auto) 80.3, Lymph % (Auto) 8.5, Mcintosh % (Auto) 9.5, Eos % (Auto) 0.9, Baso % (Auto) 0.8, Nucleat RBC Rel Count 0.0, Neut # (Auto) 8.5 H, Lymph # (Auto) 0.9 L, Mcintosh # (Auto) 1.0 H, Eos # (Auto) 0.1, Baso # (Auto) 0.1, PHA Creatinine Clear 53.18, Sodium 138, Potassium 4.8, Chloride 102, Carbon Dioxide 29.4, Anion Gap 11.4, BUN 19, Creatinine 0.85, Est GFR (CKD-EPI) > 60.0, [id number] H, Calcium 9.3, Magnesium 2.0 10/25/23 23:19: Troponin I High Sens 4.9 10/25/23 22:37: Urine Color Yellow, Urine Appearance Clear, Urine pH 5.5, Ur Specific [place] 1.037 H, Urine Protein Negative, Urine Glucose (UA) Normal, Urine Ketones Negative, Urine Occult Blood Trace H, Urine Nitrite Negative, Urine Bilirubin Negative, Urine Urobilinogen Normal, Ur Leukocyte Esterase 2+ H,Urine RBC 0-1, Urine WBC 10-19 H, Ur Squamous Epith Cells 0-1, Urine Bacteria None seen, Hyaline Casts None seen 10/25/23 21:15: Lactic Acid 1.3 10/25/23 20:27: D-Dimer Quant (PE/DVT) Cancelled, PHA Creatinine Clear 61.55, Sodium 133 L D, Potassium 4.0, Chloride 100, Carbon Dioxide 21.9, Anion Gap 15.1H, BUN 20, Creatinine 0.67, Est GFR (CKD-EPI) > 60.0, Glucose 132 H, Calcium 9.9, Total Bilirubin 1.0, Direct Bilirubin 0.20 H, Indirect Bilirubin 0.8, AST 52 H, ALT 36, Alkaline Phosphatase 79, Total Creatine Kinase 128, Troponin I High Sens 6.3, B-Natriuretic Peptide 42.0, Total Protein 7.3, Albumin 4.4, Globulin 2.9, Albumin/Globulin Ratio 1.5 10/25/23 20:27: Corrected WBC 14.4 H, Uncorrected WBC Count 14.4 H, RBC 4.39, Hgb 12.9, Hct 38.4, MCV 87.5, MCH 29.3, MCHC 33.5, RDW 15.5 H, Plt Count 397, MPV 6.4, Neut % (Auto) 75.5, Lymph % (Auto) 14.9, Mcintosh % (Auto) 6.7, Eos % (Auto) 2.2, Baso % (Auto) 0.7, Nucleat RBC Rel Count 0.0, Neut # (Auto) 10.9 H, Lymph # (Auto) 2.2, Mcintosh # (Auto) 1.0 H, Eos # (Auto) 0.3, Baso # (Auto) 0.1, Monocyte Dist Width 18.93, PT 11.4, INR 1.0, APTT 25.0 L, D-Dimer Quant (PE/DVT)312 H Microbiology Microbiology 10/25/23 22:37 Urine - Clean-Voided Midstream Urine Culture - Preliminary <9,000 colonies/ml mixed bacterial skin contaminants 1 Day 10/25/23 23:19 Blood - Right Antecubital Blood Culture - Preliminary No Growth 1 Day 10/25/23 23:20 Blood - Right Hand Blood Culture - Preliminary No Growth 1 Day A&P - General Surgery Assessment/Plan (1) Complete small bowel obstruction: (2) Abdominal pain: (3) Vomiting: Plan Recurrent small bowel obstruction status post her low anterior resection, radiation and diverting loop ileostomy. Good ileostomy output and resolution ofsymptoms. Discontinue NG tube and increase to clear liquid diet. Also can haveEnsure clear protein supplement. Would not advance to food today, make sure things continue to improve Documented By: Ion Eckert DO 10/27/23 1002 Signed By: <Electronically signed by DO Ion Eckert> 10/27/23 1004 [facility] Work Phone: [phone] Telephone encounter Note* Telephone Encounter - Colleen Solorio RN - 10/26/2023 1:50 PM EDT Call placed to Sonia to see if this has been sent out yet. She states it has not. Request faxed to [facility] pathology again, as well as the [facility] order. Colleen Solorio RN [facility]04-18-2024 Consult note Author Ion Eckert [facility] October 26, 2023 11:12am Note Date/Time October 26, 2023 11: 12am [facility] [address] [place] [address] General Surgery Consult Note Signed Patient: Evan Gill MR#: [id number] : 1955 Acct:[id number] Age/Sex: 68 / F Adm Date: 4 Loc: 4N Room: [address] [place] [address] Type: ADM IN Attending Dr: Jm Trujillo DO Copies to: Charles Bazzi,DO JmDO Ion Karimi DO~ History of Present Illness Date of consult: 10/26/2023 Requesting/Attending Provider: Jm Trujillo DO History of present illness: Patient had a robotic low anterior resection with a diverting loop ileostomy in August 2023. She had rectal cancer that she had radiation and chemotherapy preoperatively. After being home for couple days after surgery she went back with abdominal pain and vomiting and bloating, she was admitted to the hospital for 9 days with a bowel obstruction. She had a catheter down her ileostomy and an NG tube in. After 9 days that improved. She was very careful about her dietwith a low fiber diet in the meantime. She was admitted here in September waiting for bed at [facility] and her obstruction improved after about a day. Shesaid on Monday in the middle the night she started to have some cramping and bloating, the last time anything came out of her ileostomy was Monday at 3 AM. Over the course of the day that was not improving and then pain got worse and she started vomiting so she went him to the emergency room last night. She was set to be transferred to [facility] but they are waiting on transport/beds. Currently she has much less abdominal pain although still a little bit of cramping occasionally. Not putting out anything into the ileostomy. She is not having any nausea or vomiting. The NG tube annoying but she can tolerate it. She is not having much coming out of it. History of the open cholecystectomy back in the 70s. She had the robotic low anterior resection with loop ileostomy in August 2023. She had radiation and chemotherapy. Dr. Laisha singer was her surgeon at [facility] Review of Systems Review of Systems All other systems reviewed & are negative unless noted below or in HPI [facility] Medical History Rectal cancer Colorectal cancer Menopause Depression Skin cancer melanoma Arthritis Incontinence Hypertension Surgical History Ileostomy status H/O ileostomy History of knee replacement right History of open reduction and internal fixation (ORIF) procedure right ankle History of melanoma excision History of cholecystectomy History of carpal tunnel release of both wrists Family History Father CAD (coronary artery disease) Arthritis Hypertension Mother Lung cancer Arthritis Hypertension Father Hypertension Father Hypertension Grandparent Heart disease Legacy FamHx Relation: Maternal Grand Father Legacy FamHx Relation: Maternal Grand Father Cardiac disease Legacy FamHx Relation: Maternal Grand Father Grandparent Heart disease Legacy FamHx Relation: Maternal Grand Mother Diabetes Legacy FamHx Relation: Maternal Grand Mother Legacy FamHx Relation: Maternal Grand Mother Grandparent Heart disease Legacy FamHx Relation: Paternal Grand Father Legacy FamHx Relation: Paternal Grand Father Cardiac disease Legacy FamHx Relation: Paternal Grand Father Grandparent Legacy FamHx Relation: Paternal Grand Mother Mother Hypertension Mother Hypertension Social History Smoking Status: Never smoker Substance Use Type: None Allergies & Medications Medications and Allergies Allergies No Known Allergies Allergy (Verified 10/25/23 20:17) Home Medications aspirin 81 mg tablet,delayed release 81 mg PO DAILY health maintenance 11/02/18 [History Confirmed 10/26/23] omega 6-ntr-ytk-fish oil 1,000 mg (120 mg-180 mg) capsule (Fish Oil) 1 cap PO DAILY 11/02/18 [History Confirmed 10/26/23] oxybutynin chloride 15 mg tablet,extended release 24 hr 15 mg PO DAILY 11/02/18 [History Confirmed 10/26/23] lactobacillus comb no.10 20 billion cell capsule (Probiotic) 20,000 mmu cells PODAILY 03/06/23 [History Confirmed 10/26/23] magnesium 500 mg tablet 500 mg PO DAILY 03/06/23 [History Confirmed 10/26/23] meloxicam 15 mg tablet 15 mg PO DAILY 03/06/23 [History Confirmed 10/26/23] vortioxetine 5 mg tablet (Trintellix) 5 mg PO DAILY 03/06/23 [History Confirmed 10/26/23] ondansetron 8 mg disintegrating tablet 8 mg PO Q8H PRN Nausea 04/05/23 [History Confirmed 10/26/23] prochlorperazine maleate 10 mg tablet (Compazine) 10 mg PO Q6H PRN Nausea 04/05/23 [History Confirmed 10/26/23] omeprazole 40 mg capsule,delayed release 40 mg PO DAILY 04/06/23 [History Confirmed 10/26/23] denosumab 60 mg/mL subcutaneous syringe (Prolia) 60 mg subcut [id number] 06/26/23 [History Confirmed 10/26/23] progesterone micronized 100 mg capsule 150 mg PO DAILY 06/26/23 [History Confirmed 10/26/23] amlodipine 5 mg-benazepril 10 mg capsule 1 cap PO DAILY 09/30/23 [History Confirmed 10/26/23] vortioxetine 5 mg tablet (Trintellix) 5 mg PO DAILY 10/26/23 [History Confirmed 10/26/23] Active Medications Hydromorphone HCl (Hydromorphone 0.5 Mg/0.5 Ml Syringe) 0.5 mg IV-PUSH Q4H PRN PRN Reason: Pain Scale 8 - 10 Lactated Ringer's (Lactated Ringers) 1,000 mls @ 75 mls/hr IV .[id number] [facility] Stop: 10/25/24 01:44 Last Admin: 10/26/23 04:12 Dose: 75 mls/hr Ceftriaxone Sodium (Rocephin) 1 gm in 50 mls @ 100 mls/hr IV Q24H [facility] Last Admin: 10/26/23 04:11 Dose: 100 mls/hr Lactated Ringer's (Lactated Ringers) 1,000 mls @ 999 mls/hr IV .Q1H1M ONE Stop: 10/26/23 11:28 Ondansetron HCl (Ondansetron 4 Mg/2 Ml Vial) 4 mg IV-PUSH Q6H PRN PRN Reason: Nausea And Vomiting Stop: 10/25/24 01:37 Pantoprazole Sodium (Pantoprazole 40 Mg Vial) 40 mg IV-PUSH DAILY [facility] Stop: 10/25/24 08:59 Last Admin: 10/26/23 09:11 Dose: 40 mg Prochlorperazine Edisylate (Prochlorperazine Edisylate 10 Mg/2 Ml Vial) 10 mg IV-PUSH Q4H PRN PRN Reason: Nausea And Vomiting Stop: 10/25/24 01:46 Sodium Chloride (Sodium Chloride 0.9 % 10 Ml Syringe) 0 ml IV-PUSH Q8H PRN PRN Reason: Flush Stop: 10/24/24 20:31 Last Admin: 10/26/23 00:25 Dose: 10 ml Sodium Chloride (Sodium Chloride 0.9 % 10 Ml Syringe) 0 ml IV-PUSH QSHIFT YUMIKO Stop: 10/25/24 05:59 Last Admin: 10/26/23 05:07 Dose: Not Given Sodium Chloride (Sodium Chloride 0.9 % 10 Ml Vial.Pf) 10 ml INJECTION PRN PRN PRN Reason: Dilution Stop: 10/25/24 01:37 Last Admin: 10/26/23 09:11 Dose: 10 ml Sodium Chloride (Sodium Chloride 0.9 % 10 Ml Syringe) 10 ml IV-PUSH PRN PRN PRN Reason: Flush Stop: 10/25/24 01:37 Last Admin: 10/26/23 02:31 Dose: 10 ml Exam Physical Exam Vital Signs: Temp Pulse Resp BP Pulse Ox O2 Del Method 97.9 F 71 18 123/83 96 Room Air 10/26/23 07:27 10/26/23 07:27 10/26/23 07:27 10/26/23 07:27 10/26/23 07:27 10/26/23 08:00 Narrative: Patient is nontoxic in appearance. She is conversive and pleasant. Head is atraumatic normocephalic. NG tube in place. Heart is regular rate rhythm. Lungs are clear. Abdomen is soft minimally distended if at all no guarding rebound or rigidity. Ileostomy is pink, there is no output except for a small smidge of stool at the efferent limb. There is no firm bulge or parastomal hernia noted. There is no pain with palpation around the stoma. Extremities noedema. Results - Gen. Surgery Intake and Output 24 hour I&O: Intake & Output 10/25/23 10/26/23 10/26/23 23:59 07:59 15:59 Intake Total 1000 / 1000 100 / 100 Output Total 300 / 300 Balance 1000 / 1000 100 / -200 -300 / -200 Weight 66.9 kg 64.3 kg Labs 10/26/23 06:11 10/26/23 06:11 Laboratory Results - last 72 hr 10/26/23 06:11: Corrected WBC 10.6, Uncorrected WBC Count 10.6, RBC 4.19, Hgb 12.6, Hct 37.2, MCV 88.6, MCH 30.1, MCHC 33.9, RDW 15.7 H, Plt Count 343, MPV 6.3, Neut % (Auto) 80.3, Lymph % (Auto) 8.5, Mcintosh % (Auto) 9.5, Eos % (Auto) 0.9, Baso % (Auto) 0.8, Nucleat RBC Rel Count 0.0, Neut # (Auto) 8.5 H, Lymph # (Auto) 0.9 L, Mcintosh # (Auto) 1.0 H, Eos # (Auto) 0.1, Baso # (Auto) 0.1, PHA Creatinine Clear 53.18, Sodium 138, Potassium 4.8, Chloride 102, Carbon Dioxide 29.4, Anion Gap 11.4, BUN 19, Creatinine 0.85, Est GFR (CKD-EPI) > 60.0, [id number] H, Calcium 9.3, Magnesium 2.0 10/25/23 23:19: Troponin I High Sens 4.9 10/25/23 22:37: Urine Color Yellow, Urine Appearance Clear, Urine pH 5.5, Ur Specific [place] 1.037 H, Urine Protein Negative, Urine Glucose (UA) Normal, Urine Ketones Negative, Urine Occult Blood Trace H, Urine Nitrite Negative, Urine Bilirubin Negative, Urine Urobilinogen Normal, Ur Leukocyte Esterase 2+ H,Urine RBC 0-1, Urine WBC 10-19 H, Ur Squamous Epith Cells 0-1, Urine Bacteria None seen, Hyaline Casts None seen 10/25/23 21:15: Lactic Acid 1.3 10/25/23 20:27: D-Dimer Quant (PE/DVT) Cancelled, PHA Creatinine Clear 61.55, Sodium 133 L D, Potassium 4.0, Chloride 100, Carbon Dioxide 21.9, Anion Gap 15.1H, BUN 20, Creatinine 0.67, Est GFR (CKD-EPI) > 60.0, Glucose 132 H, Calcium 9.9, Total Bilirubin 1.0, Direct Bilirubin 0.20 H, Indirect Bilirubin 0.8, AST 52 H, ALT 36, Alkaline Phosphatase 79, Total Creatine Kinase 128, Troponin I High Sens 6.3, B-Natriuretic Peptide 42.0, Total Protein 7.3, Albumin 4.4, Globulin 2.9, Albumin/Globulin Ratio 1.5 10/25/23 20:27: Corrected WBC 14.4 H, Uncorrected WBC Count 14.4 H, RBC 4.39, Hgb 12.9, Hct 38.4, MCV 87.5, MCH 29.3, MCHC 33.5, RDW 15.5 H, Plt Count 397, MPV 6.4, Neut % (Auto) 75.5, Lymph % (Auto) 14.9, Mcintosh % (Auto) 6.7, Eos % (Auto) 2.2, Baso % (Auto) 0.7, Nucleat RBC Rel Count 0.0, Neut # (Auto) 10.9 H, Lymph # (Auto) 2.2, Mcintosh # (Auto) 1.0 H, Eos # (Auto) 0.3, Baso # (Auto) 0.1, Monocyte Dist Width 18.93, PT 11.4, INR 1.0, APTT 25.0 L, D-Dimer Quant (PE/DVT)312 H A&P - General Surgery (1) Complete small bowel obstruction: (2) Abdominal pain: (3) Vomiting: Plan Patient with small bowel obstruction and abdominal pain and vomiting, symptoms are improving although obstruction is not passed. There is been no output into the stoma. Reviewing her CT seems to be fecalized stool at the distal small bowel and up to the stoma. She is afebrile, white blood cell count has normalized. Symptoms are improving. She has had obstructions resolved before. Continue IV fluids, I did increase. Will place a Dulcolax suppository down the stoma to manipulate and try to stimulate stool passage. Continue NG tube. If patient is not improved by the time transfers available she could be transferredback to her primary surgeon. If she has improvement prior to that may be able to be discharged home before transfer. I discussed with patient. Hopefully eventual takedown of ileostomy will resolve her issues Documented By: Ion Eckert DO 10/26/23 1105 Signed By: <Electronically signed by DO Ion Eckert> 10/26/23 7583 [facility] Work Phone: [phone] 152-167404-18-2024 Progress note Author Jm Trujillo [facility] October 26, 2023 10:34am Note Date/Time October 26, 2023 10: 34am [facility] [address] [place] [address] Hospitalist Progress Note Signed Patient: Evan Gill MR#: [id number] : 1955 Acct:[id number] Age/Sex: 68 / F Adm Date: 4 Loc: 4N Room: 6A3590-1 Type: ADM IN Attending Dr: Jm Trujillo DO Copies to: ~ Date of Service: 10/26/2023 Subjective Subjective Narrative: The patient reports that her abdominal pain is much better today. She said thatyesterday, when coming to the emergency room, the pain in her abdomen was extreme. She does admit to having some spasms just lateral and towards the midline where her ileostomy is. The ileostomy has been started putting out any material. She is not having any nausea right now and has not been medicated for nausea or pain since leaving the emergency room. She denies other problems at this time: No headache. No lightheadedness. She thinks that she is passing an average amount of urine. No fevers or chills. Noshaking rigors. No chest pain or palpitations. No cough or expectoration of sputum. She says this is the third time that this has happened. The first one was rightaway after the initial surgery and she said that she spent 9 days in the hospital. The second SBO was on September 29, about 3 weeks ago, and that SBO suddenly released on its own here at this hospital after about 24 hours and she had great ileostomy output and she was able to be discharged home. She thinks this time was similar to the one last month. Right now the nasogastric tube has s very mild amount of drainage out, only about 100 mL of light brownish liquid. Exam Physical Exam Vital Signs: Temp Pulse Resp BP Pulse Ox O2 Del Method 97.9 F 71 18 123/83 96 Room Air 10/26/23 07:27 10/26/23 07:27 10/26/23 07:27 10/26/23 07:27 10/26/23 07:27 10/26/23 07:27 Narrative: General: Resting comfortably in bed. Pulmonary: Clear to auscultation bilaterally. Respirations calm and easy. Cardiac: Regular rate and rhythm to auscultation. GI: Bowel sounds are very hypoactive to auscultation. The abdomen is soft. There is moderate and expected amount of tenderness around the ileostomy site. There is no acute peritoneal signs. Objective Lab Results 10/26/23 06:11 10/26/23 06:11 Meds Allergies and Active Meds Allergies No Known Allergies Allergy (Verified 10/25/23 20:17) Active Meds: Active Medications Generic Name Dose Route Start Last Admin Trade Name Freq PRN Reason Stop Dose Admin Hydromorphone HCl 0.5 mg 10/26/23 01:33 Hydromorphone 0.5 Mg/0.5 Ml Syringe IV-PUSH Q4H PRN Pain Scale 8 - 10 Lactated Ringer's 1,000 mls @ 75 mls/hr 10/26/23 01:45 10/26/23 04:12 Lactated Ringers IV 10/25/24 01:44 75 mls/hr .[id number] YUMIKO Administration Ceftriaxone Sodium 1 gm in 50 mls @ 100 mls/hr 10/26/23 02:30 10/26/23 04:11 Rocephin IV 100 mls/hr Q24H YUMIKO Administration Ondansetron HCl 4 mg 10/26/23 01:38 Ondansetron 4 Mg/2 Ml Vial IV-PUSH 10/25/24 01:37 Q6H PRN Nausea And Vomiting Pantoprazole Sodium 40 mg 10/26/23 09:00 10/26/23 09:11 Pantoprazole 40 Mg Vial IV-PUSH 10/25/24 08:59 40 mg DAILY YUMIKO Administration Prochlorperazine Edisylate 10 mg 10/26/23 01:47 Prochlorperazine Edisylate 10 Mg/2 Ml Vial IV-PUSH 10/25/24 01:46 Q4H PRN Nausea And Vomiting Sodium Chloride 0 ml 10/25/23 20:32 10/26/23 00:25 Sodium Chloride 0.9 % 10 Ml Syringe IV-PUSH 10/24/24 20:31 10 ml Q8H PRN Administration Flush Sodium Chloride 0 ml 10/26/23 06:00 10/26/23 05:07 Sodium Chloride 0.9 % 10 Ml Syringe IV-PUSH 10/25/24 05:59 Not Given QSHIFT YUMIKO Sodium Chloride 10 ml 10/26/23 01:38 10/26/23 09:11 Sodium Chloride 0.9 % 10 Ml Vial.Pf INJECTION 10/25/24 01:37 10 ml PRN PRN Administration Dilution Sodium Chloride 10 ml 10/26/23 01:38 10/26/23 02:31 Sodium Chloride 0.9 % 10 Ml Syringe IV-PUSH 10/25/24 01:37 10 ml PRN PRN Administration Flush A&P - Hospitalist Assessment/Plan (1) Partial small bowel obstruction: (2) Acute UTI: Plan Partial small bowel obstruction With history of hemicolectomy with ileostomy status. Acute Abdominal pain ? N.p.o. ? Consult general surgery ? May transfer to [facility] when bed available ? NG to LIWS ? IV hydration? LR @ 75cc/hr ? Hydromorphone as needed for pain ? Zofran, Compazine as needed for nausea ? Ostomy care as needed Acute UTI?culture pending ? Ceftriaxone?pharmacy to dose ? Repeat CBC, BMP, mag in a.m. Chronic conditions HTN Depression DVT PPx-SCDs Diet order-n.p.o. CODE STATUS-full code +++ +++ Additional plan for today, on : I would like to hydrate her more aggressively so I ordered 1 L of lactated Ringer's to be given out of holosystolic over a hour or 2. I encouraged her to to do some ambulation in the hallways. I think that her NG tube can be clamped for a brief period of time and she could walk a couple laps around the hallway and then return to her room and have the NG tube placed back to low intermittent suction. Documented By: Jm Trujillo DO 1029 Signed By: <Electronically signed by Jm Trujillo, > 10/26/23 1034 [facility] Work Phone: 1(433) 653-532804-18-2024 History and physical note Author Patrice Hooks [facility] October 26, 2023 4:08am Note Date/Time October 26, 2023 1:4 8am [facility] [address] [place] [address] Hospitalist H&P Signed Patient: Evan Gill MR#: [id number] : 1955 Acct:[id number] Age/Sex: 68 / F Adm Date: 4 Loc: 4N Room: 4N3936-1 Type: ADM IN Attending Dr: Patrice Hooks MD Copies to: MD Charles Peng DO Paula G Smith, COMPUTATIONAL BIOLOGIST~ HPI DATE OF EXAMINATION: 10/26/23 CHIEF COMPLAINT: abdominal pain HISTORY OF PRESENT ILLNESS: Attending note: I saw the patient personally on the day of encounter. I reviewed the relevant history, and performed the guzman elements of the physical examination. I reviewedthe relevant laboratory workup, radiological studies and the current treatment plan. I formulated the plan of care and confirmed it with the resident/student/[employer]. Ms. Gill is a 68-year-old female with a PMH of rectal cancer s/p chemoradiationproctosigmoidectomy manage ileostomy placement the presents to the emergency room tonight for complaints of abdominal pain. Patient states she woke up about3 AM with abdominal pain that worsened throughout the day. She states I knew it was a blockage. She denies any aggravating or relieving factors to the paindescribes the pain as sharp and stabbing and rated a 9 out of 10 when she arrived to the emergency room. She states that she has been passing gas throughher ileostomy. She reports feeling nauseous, vomited x 2 since arrival to the ER. States the emesis was green and acidic. Denies fever, chills, chest pain or shortness of breath. She denies dysuria. EKG shows sinus tachycardia with PACs. CT of the abdomen pelvis mildly distended configuration small bowel loops in the left upper quadrant with air-fluid levels suggestive of underlying partial small bowel obstruction. CTA of the chest was negative for PE, minimal atelectasis at the lung bases. CBC with a white blood cell count of 14.4. Coags unremarkable. D-dimer 312. CMP with asodium 133, glucose 132, direct bilirubin 0.2, AST 52, otherwise unremarkable. 2 troponins were drawn, 6.3 and 4.9. UA with clear, yellow urine, specific gravity 1.037, trace of occult blood, 2+ leukocytes, 10-19 WBCs, no bacteria seen. Urine culture and blood cultures are pending. Patient received 1 L saline bolus, Zofran, fentanyl, ketorolac, Compazine, Benadryl and Zosyn. Patient's proctosigmoidectomy was performed at [facility], surgeon was contacted there per the ER physician and the patient was accepted however we are waiting on a bed. She will be admitted as inpatient to the medical floor while awaiting a bed. Review of Systems Review of Systems Review of systems: A 10 point review of systems was obtained, negative unless noted in the HPI or below. [facility] Medical History Rectal cancer Colorectal cancer Menopause Depression Skin cancer melanoma Arthritis Incontinence Hypertension Surgical History Ileostomy status H/O ileostomy History of knee replacement right History of open reduction and internal fixation (ORIF) procedure right ankle History of melanoma excision History of cholecystectomy History of carpal tunnel release of both wrists Family History Father CAD (coronary artery disease) Arthritis Hypertension Mother Lung cancer Arthritis Hypertension Father Hypertension Father Hypertension Grandparent Heart disease Legacy FamHx Relation: Maternal Grand Father Legacy FamHx Relation: Maternal Grand Father Cardiac disease Legacy FamHx Relation: Maternal Grand Father Grandparent Heart disease Legacy FamHx Relation: Maternal Grand Mother Diabetes Legacy FamHx Relation: Maternal Grand Mother Legacy FamHx Relation: Maternal Grand Mother Grandparent Heart disease Legacy FamHx Relation: Paternal Grand Father Legacy FamHx Relation: Paternal Grand Father Cardiac disease Legacy FamHx Relation: Paternal Grand Father Grandparent Legacy FamHx Relation: Paternal Grand Mother Mother Hypertension Mother Hypertension Social History Smoking Status: Never smoker Substance Use Type: None Meds Medications and Allergies Allergies No Known Allergies Allergy (Verified 10/25/23 20:17) Home Medications aspirin 81 mg tablet,delayed release 81 mg PO DAILY health maintenance 11/02/18 [History Confirmed 10/26/23] omega 5-zir-arx-fish oil 1,000 mg (120 mg-180 mg) capsule (Fish Oil) 1 cap PO DAILY 11/02/18 [History Confirmed 10/26/23] oxybutynin chloride 15 mg tablet,extended release 24 hr 15 mg PO DAILY 11/02/18 [History Confirmed 10/26/23] lactobacillus comb no.10 20 billion cell capsule (Probiotic) 20,000 mmu cells PODAILY 03/06/23 [History Confirmed 10/26/23] magnesium 500 mg tablet 500 mg PO DAILY 03/06/23 [History Confirmed 10/26/23] meloxicam 15 mg tablet 15 mg PO DAILY 03/06/23 [History Confirmed 10/26/23] vortioxetine 5 mg tablet (Trintellix) 5 mg PO DAILY 03/06/23 [History Confirmed 10/26/23] ondansetron 8 mg disintegrating tablet 8 mg PO Q8H PRN Nausea 04/05/23 [History Confirmed 10/26/23] prochlorperazine maleate 10 mg tablet (Compazine) 10 mg PO Q6H PRN Nausea 04/05/23 [History Confirmed 10/26/23] omeprazole 40 mg capsule,delayed release 40 mg PO DAILY 04/06/23 [History Confirmed 10/26/23] denosumab 60 mg/mL subcutaneous syringe (Prolia) 60 mg subcut [id number] 06/26/23 [History Confirmed 10/26/23] progesterone micronized 100 mg capsule 150 mg PO DAILY 06/26/23 [History Confirmed 10/26/23] amlodipine 5 mg-benazepril 10 mg capsule 1 cap PO DAILY 09/30/23 [History Confirmed 10/26/23] vortioxetine 5 mg tablet (Trintellix) 5 mg PO DAILY 10/26/23 [History Confirmed 10/26/23] Exam Physical Exam Vital Signs: Temp Pulse Resp BP Pulse Ox O2 Del Method 97.5 F L 69 22 127/68 95 Room Air 10/25/23 20:17 10/25/23 23:52 10/25/23 23:52 10/25/23 23:52 10/25/23 23:52 10/25/23 23:52 Narrative: CONST- Appears well -developed and well nourished. Ill appearing, well kempt HEAD - Normocephalic and atraumatic EENT-Sclera nonicteric, conjunctive are non-erythemic, dry oral mucosa, pharynx clear NECK-Supple, no cervical lymphadenopathy CARDIAC-normal rate, regular rhythm, S1 & S2. PULM-diminished without wheeze or rhonchi, RA, no accessory muscle use or cough noted ABD - Soft. Bowel sounds are absent. No distention. tenderness throughout, Stoma moist and red, scant amount of loose, yellow stool noted near stoma EXTREM-no edema BLE calves, nontender SKIN- W/D good turgor MS- MAEX4 spontaneously with equal with equal strength NEURO- A&Ox3 speech clear and tongue midline, equal facial symmetry, no focal motor deficits PSYCH-Mood, affect, and behavior appropriate Results - Hospitalist H&P Lab Results Labs: Laboratory Last Values Corrected WBC 14.4 X10E3/uL (3.8-11.6) H 10/25/23 20: Uncorrected WBC Count 14.4 x10E3/uL (3.8-11.6) H 10/25/23 20: RBC 4.39 X10E6/uL (3.60-5.00) 10/25/23 20: Hgb 12.9 g/dL (11.8-15.4) 10/25/23 20: Hct 38.4 % (34.0-46.4) 10/25/23 20: MCV 87.5 fl (80-100) 10/25/23 20: MCH 29.3 pg (24.7-34.3) 10/25/23 20: MCHC 33.5 g/dL (32.0-35.0) 10/25/23 20: RDW 15.5 % (11.9-15.3) H 10/25/23 20: Plt Count 397 x10E3/uL (150-450) 10/25/23 20: MPV 6.4 fl (6.3-10.7) 10/25/23 20: Neut % (Auto) 75.5 % (.) 10/25/23 20: Lymph % (Auto) 14.9 % (.) 10/25/23: Mcintosh % (Auto) 6.7 % (.) 10/25/23: Eos % (Auto) 2.2 % (.) 10/25/23: Baso % (Auto) 0.7 % (.) 10/25/23: Nucleat RBC Rel Count 0.0 /100 WBC (0-0.5) 10/25/23: Neut # (Auto) 10.9 x10E3/uL (1.8-7.7) H 10/25/23: Lymph # (Auto) 2.2 x10E3/uL (1.00-4.8) 10/25/23: Mcintosh # (Auto) 1.0 x10E3/uL (0.0-0.8) H 10/25/23: Eos # (Auto) 0.3 x10E3/uL (0.0-0.45) 10/25/23: Baso # (Auto) 0.1 x10E3/uL (0.0-0.2) 10/25/23: Monocyte Dist Width 18.93 % (0.00-20.00) 10/25/23: PT 11.4 Seconds (9.0-12.9) 10/25/23: INR 1.0 10/25/23: APTT 25.0 Seconds (25.1-36.5) L 10/25/23: D-Dimer Quant (PE/DVT) 312 ng/mL (0-243) H 10/25/23 20: D-Dimer Quant (PE/DVT) Cancelled 10/25/23: PHA Creatinine Clear 61.55 10/25/23: Sodium 133 mmol/L (136-145) L D 10/25/23: Potassium 4.0 mmol/L (3.5-5.1) 10/25/23 20: Chloride 100 mmol/L (98-107) 10/25/23: Carbon Dioxide 21.9 mmol/L (21.0-31.0) 10/25/23 20: Anion Gap 15.1 mEq/L (6.0-15.0) H 10/25/23 20:27 BUN 20 mg/dL (7-25) 10/25/23 20: Creatinine 0.67 mg/dL (0.60-1.20) 10/25/23 20:27 Est GFR (CKD-EPI) > 60.0 mL/Min 10/25/23 20: Glucose 132 mg/dL (70-100) H 10/25/23 20: Lactic Acid 1.3 mmol/L (0.5-2.2) 10/25/23 21:15 Calcium 9.9 mg/dL (8.6-10.3) 10/25/23 20: Total Bilirubin 1.0 mg/dl (0.3-1.0) 10/25/23 20: Direct Bilirubin 0.20 mg/dL (0.03-0.18) H 10/25/23 20: Indirect Bilirubin 0.8 mg/dL 10/25/23 20: AST 52 U/L (13-39) H 10/25/23 20: ALT 36 U/L (7-52) 10/25/23 20: Alkaline Phosphatase 79 U/L (34-104) 10/25/23 20: Total Creatine Kinase 128 U/L (30-223) 10/25/23 20: Troponin I High Sens 4.9 pg/mL (0.0-15.0) 10/25/23 23:19 B-Natriuretic Peptide 42.0 pg/mL (5-100) 10/25/23 20: Total Protein 7.3 gm/dL (6.4-8.9) 10/25/23 20: Albumin 4.4 gm/dL (3.5-5.7) 10/25/23 20: Globulin 2.9 gm/dL 10/25/23 20: Albumin/Globulin Ratio 1.5 10/25/23 20: Urine Color Yellow (Yellow) 10/25/23 22:37 Urine Appearance Clear (Clear) 10/25/23 22:37 Urine pH 5.5 (5.0-9.0) 10/25/23 22:37 Ur Specific [place] 1.037 (1.001-1.030) H 10/25/23 22:37 Urine Protein Negative mg/dL (Negative) 10/25/23 22:37 Urine Glucose (UA) Normal mg/dL (Normal) 10/25/23 22:37 Urine Ketones Negative (Negative) 10/25/23 22:37 Urine Occult Blood Trace (Negative) H 10/25/23 22:37 Urine Nitrite Negative (Negative) 10/25/23 22:37 Urine Bilirubin Negative (Negative) 10/25/23 22:37 Urine Urobilinogen Normal mg/dL (Normal) 10/25/23 22:37 Ur Leukocyte Esterase 2+ (Negative) H 10/25/23 22:37 Urine RBC 0-1 /HPF (0-4) 10/25/23 22:37 Urine WBC 10-19 /HPF (0-4) H 10/25/23 22:37 Ur Squamous Epith Cells 0-1 /HPF (0-2) 10/25/23 22:37 Urine Bacteria None seen (None Seen) 10/25/23 22:37 Hyaline Casts None seen /LPF (0-8) 10/25/23 22:37 Assessment & Plan Assessment/Plan (1) Partial small bowel obstruction: (2) Acute UTI: Plan Partial small bowel obstruction Abdominal pain ? N.p.o. ? Consult general surgery ? May transfer to [facility] when bed available ? NG to LIWS ? IV hydration? LR @ 75cc/hr ? Hydromorphone as needed for pain ? Zofran, Compazine as needed for nausea ? Ostomy care as needed Acute UTI?culture pending ? Ceftriaxone?pharmacy to dose ? Repeat CBC, BMP, mag in a.m. Chronic conditions HTN Depression DVT PPx-SCDs Diet order-n.p.o. CODE STATUS-full code IP vs OBS Justification Based on differential dx, clinical care plan, and risk of adverse events, if untreated, in my clinical judgement this patient requires an acute care setting as: INPATIENT because of an expectation of an over 2 midnight stay. Estimated length of stay (# of days): 3 Documented By: Ethel Saucedo APRN 10/26/23 0148 Signed By: <Electronically signed by ROXY Saucedo> 10/26/23 0211 <Electronically signed by Patrice Hooks MD> 10/26/23 0408 [facility] Work Phone: [phone] Miscellaneous Notes* Telephone Encounter - Russel Lindquist RN - 10/25/2023 2:44 PM EDT Returned call. She states she is having the signs of another small bowel obstruction. She has not had stool in her ostomy since 3am. She is requesting pain medication to relax her bowels. She states that is what [facility] did to help her have bowel movements again. I informed her that painmedication slows down the peristalsis of the bowels, which then would cause a bowel obstruction. I advised her to only be on sips of clears liquids today and to take a laxative. Also to ambulate frequently. If the pain increase and she has no output in her ostomy bag or nausea and vomiting, then she will go to the nearest emergency room to be evaluated. She was appreciative of the call. She has no other questions or concerns at this time. * Telephone Encounter - Amber Dhaliwal - 10/25/2023 2:15 PM EDT Patient called in and thinks she is having another SBO. Patient is trying to avoid going to the ER and is requesting pain medication. Contact# [phone] [facility] Telephone encounter Note * Telephone Encounter - Colleen Solorio RN - 10/17/2023 3:04 PM EDT Call received from Sonia at [facility] pathology stating they haven't ordered Signatera before. Order signed and faxed to Neel as well as Sonia at [facility]. Colleen Solorio RN [facility]04-09-2024 Telephone encounter Note* Telephone Encounter - Colleen Solorio RN - 10/17/2023 1:51 PM EDT Email received that there is no residual tumor for Neel to be ordered on [id number]. Discussed with Dr Corona and he would like this added to [facility] [id number]. Request faxed to [facility] today. Colleen Solorio RN [facility]04-[facility] History of Present illness Narrative* Dheeraj De León LMT - 10/10/2023 1:37 PM EDT Patient Name: Evan Gill : 1955 Referred For: chair massage Diagnosis: muscle soreness Chief Complaint: Pain Anxiety (pre): 2 Pain (pre): 3 Stress Level (pre): 2 Therapy Provided: Massage Therapy Area(s) Treated: entire back Anxiety (post): <1 Pain (post): 1 Stress Level (post): <1 Visit Outcome: Better Comments: relaxation massage Treatment Plan: consistent time Care Team contacted: N/A Signature: Dheeraj De León LMT Date: October 10, 2023 Time: 1:37 PM documented in this encounterOhio[facility]04-[facility]-2024 [facility]04-02-2024 [facility]04-02-2024 History of Present illness Narrative* Darnell Corona MD - 10/10/2023 11:06 AM EDT Images from the original note were not included. PATIENT NAME: Evan Gill CLINIC NO.: [id number] ATTENDING PHYSICIAN: Darnell Corona MD DATE OF SERVICE: October 10, 2023 Some of the elements of this note have been copied from my previous progress note dated 07/05/2023.All the information has been reviewed carefully. Dear Dr. Bazzi here is an update on a follow up visit on female Evan Gill at the clinic October 10, 2023 Diagnosis: MRI staged T3c,N+M0- Adenocarcinoma of the mid-low rectum Treatment History: Xeloda and XRT 03/29/2023- Admitted 04/06/2023 with coronary spasms and elevated Troponin- ECHO normal, CTA negative for PE.Xeloda stopped shortly after completed radiation 05/10/2023 FOLFOX started 07/05/2023- Stopped after reaction and elected not to have any additional chemo 08/25/2023: General anesthesia TAP block by anesthesia Robotic low anterior resection with diverting loop ileostomy Flexible sigmoidoscopy HPI: Evan Gill is a 68 year old year old female here for follow up. She is finally doing very well. She was admitted twice afetr her resection for SBO and she was treated medically. She is eating well and denies any chest pain PAST MEDICAL HISTORY Diagnosis Date Constipation Diverticulosis Malignant melanoma (HCC) Rectal cancer (HCC) Social History Tobacco Use Smoking status: Never Passive exposure: Past Smokeless tobacco: Never Vaping Use Vaping Use: Never used Substance Use Topics Alcohol use: Not Currently Comment: 2 times a month if that Drug use: Never FAMILY HISTORY Problem Relation Age of Onset Hypertension Mother Lung Cancer Mother Coronary Artery Disease Father Hypertension Father Heart disease Father Hyperlipidemia Father Emphysema Father Past medical, social and family history reviewed without any changes. REVIEW OF SYSTEMS GENERAL: No weight loss, malaise or fevers. No night sweats. HEENT: Negative for headaches, No changes in hearing or vision, no nose bleeds or other nasal problems. RESPIRATORY: Negative for cough, wheezing and shortness of breath CARDIOVASCULAR: Negative for chest pain, leg swelling and palpitations GI: Negative for abdominal discomfort, blood in stools or black stools and change in bowel habits : Negative for dysuria, frequency and incontinence MUSCULOSKELETAL: Negative for joint pain or swelling, back pain, and muscle pain. SKIN: Negative for lesions, rash, and itching. HEMATOLOGY/LYMPHOLOGY Negative for prolonged bleeding, bruising easily, and swollen nodes. NEURO: Negative for numbness or tingling of hands/feet. No weakness. PHYSICAL EXAMINATION: BP 122/66 Pulse 92 Temp (Src) 98 (Temporal) Resp 16 Ht 5' 4.016 (1.63m) Wt 140 lb 6.9 oz(63.7kg) SpO2 100% BMI 24.09 kg/(m^2). Wt 61.8 kg (136 lb 3.2 oz) BMI 23.92 kg/m2 Last 3 Encounter Wt Readings: Date: Wt: 03/22/2023 61.8 kg (136 lb 3.2 oz) 03/14/2023 62.6 kg (138 lb) 03/08/2023 62.8 kg (138 lb 6.4 oz) General appearance:ECOG PERFORMANCE STATUS: 1- Restricted in physically strenuous activity. Carries out light duty. Patient in NAD. Skin: Skin color, texture, turgor normal. No rashes or lesions. Eyes: Anicteric sclera. Pupils are equally round and reactive to light. Extraocular movements are intact. Lymph Nodes: No cervical, supraclavicular, axillary or inguinal adenopathy. Oropharynx: Lips, mucosa, and tongue normal. Back: No pain to percussion. Negative SLR test Lungs clear to auscultation, No wheezing or rhonchi Heart: RRR without murmur, gallop, or rubs. Abdomen soft, non-tender. No masses, organomegaly Extremities: No deformities. No edema Neuro: Gait and speech normal. Reflexes normal and symmetric. Muscular strength intact. Sensation grossly intact. Rectal: Deferred : Deferred LABS: Glucose (mg/dL) Date Value 09/04/2023 99 Potassium (mmol/L) Date Value 09/04/2023 3.8 Sodium (mmol/L) Date Value 09/04/2023 143 Chloride (mmol/L) Date Value 09/04/2023 109 CO2 (mmol/L) Date Value 09/04/2023 25 Creatinine (mg/dL) Date Value 09/04/2023 0.56 BUN (mg/dL) Date Value 09/04/2023 11 Anion Gap (mmol/L) Date Value 09/04/2023 9 Calcium, Total (mg/dL) Date Value 09/04/2023 8.7 Protein, Total (g/dL) Date Value 08/31/2023 7.4 Albumin (g/dL) Date Value 08/31/2023 4.6 Bilirubin, Total (mg/dL) Date Value 08/31/2023 0.5 Alkaline Phosphatase (U/L) Date Value 08/31/2023 351 AST (U/L) Date Value 08/31/2023 83 ALT (U/L) Date Value 08/31/2023 178 WBC Date Value Ref Range Status 09/04/2023 5.11 3.70 - 11.00 k/uL Final RBC Date Value Ref Range Status 09/04/2023 3.51 (L) 3.90 - 5.20 m/uL Final Hemoglobin Date Value Ref Range Status 09/04/2023 10.3 (L) 11.5 - 15.5 g/dL Final Hematocrit Date Value Ref Range Status 09/04/2023 31.1 (L) 36.0 - 46.0 % Final MCV Date Value Ref Range Status 09/04/2023 88.6 80.0 - 100.0 fL Final MCH Date Value Ref Range Status 09/04/2023 29.3 26.0 - 34.0 pg Final MCHC Date Value Ref Range Status 09/04/2023 33.1 30.5 - 36.0 g/dL Final RDW-CV Date Value Ref Range Status 09/04/2023 14.4 11.5 - 15.0 % Final Platelet Count Date Value Ref Range Status 09/04/2023 319 150 - 400 k/uL Final MPV Date Value Ref Range Status 09/04/2023 8.5 (L) 9.0 - 12.7 fL Final Abs Neut Date Value Ref Range Status 08/31/2023 7.36 1.45 - 7.50 k/uL Final Lymphocytes % Date Value Ref Range Status 08/31/2023 11.4 % Final Abs Lymph Date Value Ref Range Status 08/31/2023 1.06 1.00 - 4.00 k/uL Final Monocytes % Date Value Ref Range Status 08/31/2023 7.2 % Final Abs Mcintosh Date Value Ref Range Status 08/31/2023 0.67 <0.87 k/uL Final Abs Eosin Date Value Ref Range Status 08/31/2023 0.09 <0.46 k/uL Final Basophils % Date Value Ref Range Status 08/31/2023 0.2 % Final Abs Baso Date Value Ref Range Status 08/31/2023 <0.03 <0.11 k/uL Final PATH: Colonoscopy 02/2023: 08/2023 LAR: Synoptic Report COLON AND RECTUM: Resection, Including Transanal Disk Excision of Rectal Neoplasms 8th Edition - Protocol posted: 12/29/2021 COLON AND RECTUM: RESECTION - All Specimens SPECIMEN Procedure Low anterior resection Macroscopic Evaluation of Mesorectum Complete TUMOR Tumor Site Rectum Rectal Tumor Location Entirely below anterior peritoneal reflection Histologic Type No evidence of residual invasive adenocarcinoma Histologic Grade No evidence of residual invasive adenocarcinoma Tumor Size Cannot be determined: No evidence of residual invasive adenocarcinoma Tumor Extent No evidence of primary tumor Macroscopic Tumor Perforation Not identified Lymphovascular Invasion Not identified Perineural Invasion Not identified Treatment Effect Present, with no viable cancer cells (complete response, score 0) MARGINS Margin Status for Invasive Carcinoma All margins negative for invasive carcinoma Distance from Invasive Carcinoma to Radial (Circumferential) Margin No evidence of residual invasive adenocarcinoma Distance from Invasive Carcinoma to Distal Margin No evidence of residual invasive adenocarcinoma Margin Status for Non-Invasive Tumor All margins negative for high-grade dysplasia / intramucosal carcinoma and low-grade dysplasia REGIONAL LYMPH NODES Regional Lymph Node Status All regional lymph nodes negative for tumor Number of Lymph Nodes Examined 15 Tumor Deposits Not identified PATHOLOGIC STAGE CLASSIFICATION (pTNM, AJCC 8th Edition) Reporting of pT, pN, and (when applicable) pM categories is based on information available to the pathologist at the time the report is issued. As per the AJCC (Chapter 1, 8th Ed.) it is the managingphysician s responsibility to establish the final pathologic stage based upon all pertinent information, including but potentially not limited to this pathology report. TNM Descriptors y (post-treatment) pT Category pT0 pN Category pN0 Imaging: CT Scan of the Chest and Abdomen and Pelvis 02/2023: MRI rectum 03/2023: 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 Stage: T3c N+ MRF: Involved (tumor margin within 1 mm of MRF Sphincter involvement: No. Suspicious extra mesorectal lymph nodes: Yes EMVI: Yes. MRI Rectum 06/12/2023: Decrease in size of mid rectal mass with some post-treatment fibrosis but with residual viable tumor present. Resolution of prior EMVI. A single residual mesorectal node remains borderline in size (although decreased since the baseline study). Remainder of the previously noted nodes are no longer present. 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 Since 03/15/2023, post treatment primary tumor assessment: Incomplete response (likely residual tumor). mrTRG: Grade 3 - Moderate response Suspicious Mesorectal lymph nodes: Yes. Suspicious Extramesorectal lymph nodes: No. Assessment and Plan: Evan Gill is a 67 year old year old female here for follow up. MRI Staged T3c,N+,M0 mid to low rectal cancer. Discussed the rational and toxicity of STACY . She hadstarted Xeloda and radiation 03/29/2023 and presented with what sounds like a coronary spasm, concerning for 5 fu induced. She is off the Xeloda and completed radiation only 05/10/2023. Saw cardiology and stress test was negative and they felt a 5FU challenge is reasonable. She had MRI and sigmoidoscopy with response and discussed options and discussed 4 months of FOLFOX. Discussed the cardiac and heme and neurotoxicity in detail and she agrees and strarted FOLFOX 07/05/2023- She could not tolerate the chemo after 1 dose and we elected to proceed with surgical resection which was performed on complicated by SBO. She is doing well and we discussed surveillance in great detail. Will check signatera and labs today See back in 3 months for surveillance Thank you for the kind referral. If there are any questions and or concerns please do not hesitate to contact me at [phone]. Darnell Corona MD Hematology/Medical Oncology [facility] spent a total of 30 minutes on the date of the service which included preparing to see the patient, [id number] patient care, completing clinical documentation, obtaining and/or reviewing separately obtained history, performing a medically appropriate examination, counseling and educating the pat ient/family/caregiver, and ordering medications, tests, or procedures. CC: [facility] Progress note Author Tim Garduno [facility] October 01, 2023 1:12pm Note Date/Time October 01, 2023 10: 31am [facility] [address] [place] [address] Hospitalist Progress Note Signed with Reece Patient: Evan Gill MR#: [id number] : 1955 Acct:[id number] Age/Sex: 68 / F Adm Date: 4 Loc: 3T Room: [address] [place] [address] Type: ADM IN Attending Dr: Tim Garduno MD Copies to: ~ ADDENDUM1 Upon reevaluation, patient tolerated soft GI diet With no issues. She feels better and would like to go home. Okay for discharge from surgery standpoint aswell since she tolerated solid diet. Discussed with patient at bedside, all questions answered, patient in agreement and comfortable with the plan. Addendum Documented By: Tim Garduno MD 10/01/23 1311 Addendum Signed By: <Electronically signed by Tim Garduno MD> 10/01/23 1311 Date of Service: 10/01/2023 Subjective Subjective Narrative: Patient was seen and evaluated at bedside this morning. Remains afebrile, hemodynamically stable. She does report good ostomy output. Denies any nausea,vomiting. She does report some abdominal cramps precedes output coming out fromostomy. Otherwise she is feeling overall much better. Tolerated her clear liquids, advance to soft GI diet per surgery. Exam Physical Exam Vital Signs: Temp Pulse Resp BP Pulse Ox O2 Del Method 98.1 F 58 L 16 110/69 97 Room Air 10/01/23 07:51 10/01/23 07:51 10/01/23 07:51 10/01/23 07:51 10/01/23 07:51 10/01/23 07:51 Narrative: Const General: cooperative, looks younger than her stated age HEENT Normal oropharyngeal mucosa without any ulcers or exudates Eyes: Conjunctiva normal Pulmonary Auscultation: clear to auscultation , no crackles, no wheezes Cardiovascular Rate: normal rate Rhythm: regular rhythm Heart Sounds: S1 normal, S2 normal and no murmurs GI Inspection: non-distended Palpation: soft, not firm and nontender. No rigidity or rebound. Ostomy bag in place Deferred Neuro General: alert, awake and oriented x3. No obvious new focal deficit Musculoskeletal: normal range of motion Extrem General: no cyanosis, no pedal edema Psych Appearance: appropriate affect. Grossly normal Objective Lab Results 10/01/23 06:39 10/01/23 06:39 Meds Allergies and Active Meds Allergies No Known Allergies Allergy (Verified 09/30/23 01:00) Active Meds: Active Medications Generic Name Dose Route Start Last Admin Trade Name Freq PRN Reason Stop Dose Admin Heparin Sodium (Porcine) 5,000 unit 09/30/23 09:00 10/01/23 10:10 Heparin 5,000 Unit/Ml Vial SUBCUT 09/29/24 08:59 5,000 unit BID YUMIKO Administration Lactated Ringer's 1,000 mls @ 125 mls/hr 09/30/23 05:30 10/01/23 05:14 Lactated Ringers IV 09/29/24 05:29 125 mls/hr .Q8H YUMIKO Administration Morphine Sulfate 2 mg 09/30/23 05:18 09/30/23 20:42 Morphine Sulfate 2 Mg/Ml Vial IV-PUSH 2 mg Q4H PRN Administration Pain Scale 7 - 10 Ondansetron HCl 4 mg 09/30/23 06:36 09/30/23 20:42 Ondansetron 4 Mg/2 Ml Vial IV-PUSH 09/29/24 06:35 4 mg Q6H PRN Administration Nausea And Vomiting Sodium Chloride 0 ml 09/30/23 01:00 09/30/23 06:21 Sodium Chloride 0.9 % 10 Ml Syringe IV-PUSH 09/29/24 00:59 10 ml PRN PRN Administration Flush Zolpidem Tartrate 5 mg 09/30/23 05:18 Zolpidem 5 Mg Tablet PO 03/28/24 05:17 QHS PRN Sleep A&P - Hospitalist Assessment/Plan (1) SBO (small bowel obstruction): (2) Ileostomy status: (3) Rectal cancer: Plan Patient remained afebrile, leukocytosis, hemodynamically stable. Maintained on IV fluids. Ileostomy has been functioning with good output Tolerated clear liquids with no nausea or vomiting, advance to soft GI diet Surgery team following. Discharge plan once cleared by surgery DVT ppx: heparin Documented By: Tim Garduno MD 10/01/23 10 29 Signed By: <Electronically signed by Tim Garduno MD> 10/01/23 1033 [facility] Work Phone: 1(928) 182-236503-23-2024 Progress note Author Tim Garduno [facility] September 30, 2023 11:15am Note Date/Time September 30, 2023 11: 15am [facility] [address] [place], [place] [id number] Progress Note Signed Patient: Evan Gill MR#: [id number] : 1955 Acct:[id number] Age/Sex: 68 / F Adm Date: 4 Loc: 3T Room: [address] [place] [address] Type: ADM IN Attending Dr: Tim Garduno MD Copies to: ~ Date of Service: 09/30/2023 Progress Narrative Note SBO PROGRESS NOTE Progress Note: Case was discussed with patient's surgeon at [facility] Dr. Durán, hereviewed her CT scan that was done here and showed SBO and suggested to provide IV fluids and ostomy irrigation/enema and hopefully she will improve with conservative management and save the trip back to [place]. He states if she does not improve over the next 24 hours, or clinically worsen, he would accept her for transfer tomorrow and states they have beds available. Our general surgery team was updated. I met with patient at bedside, daughters at bedside. Patient appears very comfortable, denies nausea, vomiting or pain. She did have stool output about 500 cc via ostomy bag. She is overall feeling better. General surgery following,started clear liquids. Will continue to monitor for now. Documented By: Tim Garduno MD 09/30/23 11 09 Signed By: <Electronically signed by Tim Garduno MD> 09/30/[address] [place] [address] Ctr Work Phone: 1(156) 219-191503-23-2024 Consult note Author Delfino Vargas [facility] September 30, 2023 10:17am Note Date/Time September 30, 2023 10: 17am [facility] [address] [place], [place] [id number] General Surgery Consult Note Signed Patient: Evan Gill MR#: [id number] : 1955 Acct:[id number] Age/Sex: 68 / F Adm Date: 4 Loc: 3T Room: [address] [place] [address] Type: ADM IN Attending Dr: Tim Garduno MD Copies to: Delfino V MD Charles DO Obaydah M Daromar, MD~ History of Present Illness Date of consult: 09/30/2023 Reason for consult: other (Bowel obstruction) Requesting/Attending Provider: Tim Garduno MD History of present illness: Patient is a 68-year-old female who last month underwent robotic laparoscopic assisted low anterior resection for rectal cancer at [facility]. She had previously been treated with chemotherapy and radiation but did not tolerate the chemotherapy well. Pathology from surgical specimen showed no residual cancer and no positive lymph nodes. Patient also had a diverting loop ileostomy. She was readmitted a few days later with bowel obstruction at the level of the ileostomy. This was treated with nasogastric decompression as well as with intubation of the ileostomy with a Gunn catheter. Patient states she was in the hospital for about 9 days but did not require another surgery. She had a recent follow-up as an outpatient and things were going well. Yesterday, patient developed abdominal pain and decreased output from her ileostomy. No vomiting. She presented to the emergency room. CT scan showed obstruction at the level of the ileostomy. No bed was available at [facility]. Patient was admitted here. This morning, patient states that she had a little bit of crampy pain and then had suddenly a large output from her ileostomy. There was about 500 cc. She feels better now. Review of Systems Constitutional Constitutional: Denies fever(s) Cardiovascular Cardiovascular: Denies chest pain Respiratory Respiratory: Denies dyspnea Gastrointestinal Gastrointestinal: Reports abdominal pain and Denies vomiting Neurologic Neurologic: Denies syncope [facility] Medical History (Updated 09/30/23 @ 10:16 by Delfino Vargas MD) Colorectal cancer Menopause Depression Skin cancer melanoma Arthritis Incontinence Hypertension Surgical History (Updated 09/30/23 @ 10:16 by Delfino Vargas MD) H/O ileostomy History of knee replacement right History of open reduction and internal fixation (ORIF) procedure right ankle History of melanoma excision History of cholecystectomy History of carpal tunnel release of both wrists Family History Father CAD (coronary artery disease) Arthritis Hypertension Mother Lung cancer Arthritis Hypertension Social History Smoking Status: Never smoker Substance Use Type: None Allergies & Medications Medications and Allergies Allergies No Known Allergies Allergy (Verified 09/30/23 01:00) Home Medications aspirin 81 mg tablet,delayed release 81 mg PO DAILY health maintenance 11/02/18 [History Confirmed 09/30/23] omega 1-wud-dvn-fish oil 1,000 mg (120 mg-180 mg) capsule (Fish Oil) 1 cap PO DAILY 11/02/18 [History Confirmed 09/30/23] oxybutynin chloride 15 mg tablet,extended release 24 hr 15 mg PO DAILY 11/02/18 [History Confirmed 09/30/23] lactobacillus comb no.10 20 billion cell capsule (Probiotic) 20,000 mmu cells PODAILY 03/06/23 [History Confirmed 09/30/23] magnesium 500 mg tablet 500 mg PO DAILY 03/06/23 [History Confirmed 09/30/23] meloxicam 15 mg tablet 15 mg PO DAILY 03/06/23 [History Confirmed 09/30/23] vortioxetine 5 mg tablet (Trintellix) 5 mg PO DAILY 03/06/23 [History Confirmed 09/30/23] ondansetron 8 mg disintegrating tablet 8 mg PO Q8H PRN Nausea 04/05/23 [History Confirmed 09/30/23] prochlorperazine maleate 10 mg tablet (Compazine) 10 mg PO Q6H PRN Nausea 04/05/23 [History Confirmed 09/30/23] omeprazole 40 mg capsule,delayed release 40 mg PO DAILY 04/06/23 [History Confirmed 09/30/23] denosumab 60 mg/mL subcutaneous syringe (Prolia) 60 mg subcut [id number] 06/26/23 [History Confirmed 09/30/23] progesterone micronized 100 mg capsule 150 mg PO DAILY 06/26/23 [History Confirmed 09/30/23] amlodipine 5 mg-benazepril 10 mg capsule 1 cap PO DAILY 09/30/23 [History Confirmed 09/30/23] Active Medications Heparin Sodium (Porcine) (Heparin 5,000 Unit/Ml Vial) 5,000 unit SUBCUT BID YUMIKO Stop: 09/29/24 08:59 Last Admin: 09/30/23 09:49 Dose: 5,000 unit Lactated Ringer's (Lactated Ringers) 1,000 mls @ 125 mls/hr IV .Q8H YUMIKO Stop: 09/29/24 05:29 Last Admin: 09/30/23 06:20 Dose: 125 mls/hr Morphine Sulfate (Morphine Sulfate 2 Mg/Ml Vial) 2 mg IV-PUSH Q4H PRN PRN Reason: Pain Scale 7 - 10 Last Admin: 09/30/23 06:24 Dose: 2 mg Ondansetron HCl (Ondansetron 4 Mg/2 Ml Vial) 4 mg IV-PUSH Q6H PRN PRN Reason: Nausea And Vomiting Stop: 09/29/24 06:35 Last Admin: 09/30/23 07:44 Dose: 4 mg Sodium Chloride (Sodium Chloride 0.9 % 10 Ml Syringe) 0 ml IV-PUSH PRN PRN PRN Reason: Flush Stop: 09/29/24 00:59 Last Admin: 09/30/23 06:21 Dose: 10 ml Zolpidem Tartrate (Zolpidem 5 Mg Tablet) 5 mg PO QHS PRN PRN Reason: Sleep Stop: 03/28/24 05:17 Exam Physical Exam Vital Signs: Temp Pulse Resp BP Pulse Ox O2 Del Method 98.1 F 63 18 115/67 96 Room Air 09/30/23 07:45 09/30/23 07:45 09/30/23 07:45 09/30/23 07:45 09/30/23 07:45 09/30/23 07:45 Const General: cooperative and no acute distress Eyes Sclera: sclerae normal (Anicteric) GI Inspection: non-distended Palpation: soft and no guarding Other: Ileostomy viable and functioning. Neuro General: patient alert and patient awake Results - Gen. Surgery Intake and Output 24 hour I&O: Intake & Output 09/29/23 09/30/23 09/30/23 23:59 07:59 15:59 Intake Total 1000 / 1000 Balance 1000 / 1000 Weight 66.8 kg Labs 09/30/23 01:20 09/30/23 01:20 Laboratory Results - last 72 hr 09/30/23 01:20: Corrected WBC 9.5, Uncorrected WBC Count 9.5, RBC 4.35, Hgb 12.7, Hct 38.1, MCV 87.7, MCH 29.2, MCHC 33.3, RDW 16.4 H, Plt Count 333, MPV 6.6, Neut % (Auto) 71.5, Lymph % (Auto) 12.0, Mcintosh % (Auto) 8.0, Eos % (Auto) 7.3, Baso % (Auto) 1.2, Nucleat RBC Rel Count 0.1, Neut # (Auto) 6.8, Lymph # (Auto) 1.1, Mcintosh # (Auto) 0.8, Eos # (Auto) 0.7 H, Baso # (Auto) 0.1, Monocyte Dist Width 15.40, PHA Creatinine Clear 56.50, Sodium 139, Potassium 3.9, Chloride 105, Carbon Dioxide 25.6, Anion Gap 12.3, BUN 21, Creatinine 0.72, Est GFR (CKD-EPI) > 60.0, Glucose 111 H, Calcium 9.8, Total Bilirubin 0.5, Direct Bilirubin 0.10, Indirect Bilirubin 0.4, AST 19, ALT 15, Alkaline Phosphatase 68,Total Protein 6.7, Albumin 4.1, Globulin 2.6, Albumin/Globulin Ratio 1.6, Lipase5.0 L A&P - General Surgery (1) SBO (small bowel obstruction): (2) Ileostomy status: (3) Rectal cancer: Plan Ileostomy has started functioning. Will start clear liquids. Advance diet as tolerated. If patient worsens again, transfer to [facility] tomorrow. Documented By: Delfino Vargas MD 09/30/23 1010 Signed By: <Electronically signed by MD Delfino Vargas> 09/30/23 1017 [facility] Work Phone: 1(158) 400-245003-23-2024 History and physical note Author Miguel Ángel Delgadillo [facility] September 30, 2023 6:58am Note Date/Time September 30, 2023 5:2 9am [facility] [address] [place] [address] Hospitalist H&P Signed Patient: Evan Gill MR#: [id number] : 1955 Acct:[id number] Age/Sex: 68 / F Adm Date: 4 Loc: 3T Room: [address] [place] [address] Type: ADM IN Attending Dr: Miguel Ángel Delgadillo MD Copies to: Charles Bazzi,DO Miguel Ángel Delgadillo MD~ HPI DATE OF EXAMINATION: 09/30/23 HISTORY OF PRESENT ILLNESS: This is a pleasant 68F with PMH of rectal cancer s/p chemoradiation and Proctosigmoidectomy with Ileostomy who presented with abdominal cramps and admitted for the evaluation and treatment of SBO On 08/25/2023, the patient underwent a Robotic Assisted Laparoscopic Proctosigmoidectomy (Low Anterior Resection) with Colorectal Anastomosis and Diverting Loop Ileostomy, Laparoscopic Mobilization of Splenic Flexure, and Flexible Sigmoidoscopy for rectal cancer. Her recovery was complicated by SBO. Today, around 4 PM, the patient noticed no output from her ileostomy. Subsequently, she began experiencing abdominal spasms and pain in the lower halfof her abdomen. She reported feeling nauseous but did not vomit, and she had no fever or chills. These symptoms are similar to those she experienced during her bowel obstruction the previous month. ROS: Ten Systems reviewed with the patient, all negative except what stated above Assessment And Plan Small bowel obstruction CAT scan of the abdomen consistent with small bowel obstruction (note: ct reports are out of hospital reading. final [facility] radiology report pending) [facility] was contacted but they are not taking any patient at least after 6 am as per ED physician. Dr. Martin also contacted She is afebrile, hemodynamically stable, no leukocytosis , abdominal pain is better , no vomiting , lipase wnl NPO IVF Supportive [place] Consult to general surgery to follow while she is here will try to contact [facility] again in the morning to see if they are open to transfer Chronic diseases:? all home medications on hold DVT Px:?Addressed Code Status: FULL, discussed with patient Plan of care Discussed with:?the medical team, the patient [facility] Medical History (Updated 09/30/23 @ 03:06 by Patrice Gomez DO) Colorectal cancer Menopause Depression Skin cancer melanoma Arthritis Incontinence Hypertension Surgical History H/O ileostomy History of knee replacement right History of open reduction and internal fixation (ORIF) procedure right ankle History of melanoma excision History of cholecystectomy History of carpal tunnel release of both wrists Family History Father CAD (coronary artery disease) Arthritis Hypertension Mother Lung cancer Arthritis Hypertension Social History Smoking Status: Never smoker Substance Use Type: None Meds Medications and Allergies Allergies No Known Allergies Allergy (Verified 09/30/23 01:00) Home Medications aspirin 81 mg tablet,delayed release 81 mg PO DAILY health maintenance 11/02/18 [History Confirmed 06/26/23] omega 0-huk-iuo-fish oil 1,000 mg (120 mg-180 mg) capsule (Fish Oil) 1 cap PO DAILY 11/02/18 [History Confirmed 06/26/23] oxybutynin chloride 15 mg tablet,extended release 24 hr 15 mg PO DAILY 11/02/18 [History Confirmed 06/26/23] lactobacillus comb no.10 20 billion cell capsule (Probiotic) 20,000 mmu cells PODAILY 03/06/23 [History Confirmed 06/26/23] magnesium 500 mg tablet 500 mg PO DAILY 03/06/23 [History Confirmed 06/26/23] meloxicam 15 mg tablet 15 mg PO DAILY 03/06/23 [History Confirmed 06/26/23] vortioxetine 5 mg tablet (Trintellix) 5 mg PO DAILY 03/06/23 [History Confirmed 06/26/23] ondansetron 8 mg disintegrating tablet 8 mg PO Q8H PRN Nausea 04/05/23 [History Confirmed 06/26/23] polyethylene glycol 3350 17 gram oral powder packet (Miralax) 17 g PO DAILY PRN Constipation 04/05/23 [History Confirmed 06/26/23] prochlorperazine maleate 10 mg tablet (Compazine) 10 mg PO Q6H PRN Nausea 04/05/23 [History Confirmed 06/26/23] testosterone 1 % (25 mg/2.5 gram) transdermal gel packet 1 packet transdermal DAILY 04/05/23 [History Confirmed 06/26/23] omeprazole 40 mg capsule,delayed release 40 mg PO DAILY 04/06/23 [History Confirmed 06/26/23] denosumab 60 mg/mL subcutaneous syringe (Prolia) 60 mg subcut [id number] 06/26/23 [History Confirmed 06/26/23] hydrocodone 5 mg-acetaminophen 325 mg tablet 1 tab PO Q6H PRN pain 5 days #20 tabs 06/26/23 [Rx] progesterone micronized 100 mg capsule 100 mg PO DAILY 06/26/23 [History Confirmed 06/26/23] Exam Physical Exam Vital Signs: Temp Pulse Resp BP Pulse Ox O2 Del Method 36.9 C 60 18 128/75 97 Room Air 09/30/23 04:29 09/30/23 04:29 09/30/23 04:29 09/30/23 04:29 09/30/23 04:29 09/30/23 04:57 Narrative: GEN: Pleasant, Cooperative, Not in acute distress. NECK: Supple, ? JVD LUNGS: CTA. normal respiratory effort. CV: S1S2 nl, ? M/R/G ABD: Soft, ND, mild tenderness in the lower half ? rebound/guarding, ostomy noted, ?CVA tenderness, ? HSM EXT: No edema in LE bilaterally, no calf muscle tenderness. NEURO: ? FND PSYCH: nl affect, ? hallucinations, nl speech, AOx3. Results - Hospitalist H&P Lab Results Labs: Laboratory Last Values Corrected WBC 9.5 X10E3/uL (3.8-11.6) 09/30/23 01:20 Uncorrected WBC Count 9.5 x10E3/uL (3.8-11.6) 09/30/23 01:20 RBC 4.35 X10E6/uL (3.60-5.00) 09/30/23 01:20 Hgb 12.7 g/dL (11.8-15.4) 09/30/23 01:20 Hct 38.1 % (34.0-46.4) 09/30/23 01:20 MCV 87.7 fl (80-100) 09/30/23 01:20 MCH 29.2 pg (24.7-34.3) 09/30/23 01:20 MCHC 33.3 g/dL (32.0-35.0) 09/30/23 01:20 RDW 16.4 % (11.9-15.3) H 09/30/23 01:20 Plt Count 333 x10E3/uL (150-450) 09/30/23 01:20 MPV 6.6 fl (6.3-10.7) 09/30/23 01:20 Neut % (Auto) 71.5 % (.) 09/30/23 01:20 Lymph % (Auto) 12.0 % (.) 09/30/23 01:20 Mcintosh % (Auto) 8.0 % (.) 09/30/23 01:20 Eos % (Auto) 7.3 % (.) 09/30/23 01:20 Baso % (Auto) 1.2 % (.) 09/30/23 01:20 Nucleat RBC Rel Count 0.1 /100 WBC (0-0.5) 09/30/23 01:20 Neut # (Auto) 6.8 x10E3/uL (1.8-7.7) 09/30/23 01:20 Lymph # (Auto) 1.1 x10E3/uL (1.00-4.8) 09/30/23 01:20 Mcintosh # (Auto) 0.8 x10E3/uL (0.0-0.8) 09/30/23 01:20 Eos # (Auto) 0.7 x10E3/uL (0.0-0.45) H 09/30/23 01:20 Baso # (Auto) 0.1 x10E3/uL (0.0-0.2) 09/30/23 01:20 Monocyte Dist Width 15.40 % (0.00-20.00) 09/30/23 01:20 PHA Creatinine Clear 56.50 09/30/23 01:20 Sodium 139 mmol/L (136-145) 09/30/23 01:20 Potassium 3.9 mmol/L (3.5-5.1) 09/30/23 01:20 Chloride 105 mmol/L (98-107) 09/30/23 01:20 Carbon Dioxide 25.6 mmol/L (21.0-31.0) 09/30/23 01:20 Anion Gap 12.3 mEq/L (6.0-15.0) 09/30/23 01:20 BUN 21 mg/dL (7-25) 09/30/23 01:20 Creatinine 0.72 mg/dL (0.60-1.20) 09/30/23 01:20 Est GFR (CKD-EPI) > 60.0 mL/Min 09/30/23 01:20 Glucose 111 mg/dL (70-100) H 09/30/23 01:20 Calcium 9.8 mg/dL (8.6-10.3) 09/30/23 01:20 Total Bilirubin 0.5 mg/dl (0.3-1.0) 09/30/23 01:20 Direct Bilirubin 0.10 mg/dL (0.03-0.18) 09/30/23 01:20 Indirect Bilirubin 0.4 mg/dL 09/30/23 01:20 AST 19 U/L (13-39) 09/30/23 01:20 ALT 15 U/L (7-52) 09/30/23 01:20 Alkaline Phosphatase 68 U/L (34-104) 09/30/23 01:20 Total Protein 6.7 gm/dL (6.4-8.9) 09/30/23 01:20 Albumin 4.1 gm/dL (3.5-5.7) 09/30/23 01:20 Globulin 2.6 gm/dL 09/30/23 01:20 Albumin/Globulin Ratio 1.6 09/30/23 01:20 Lipase 5.0 U/L (11.0-82.0) L 09/30/23 01:20 Assessment & Plan Assessment/Plan (1) SBO (small bowel obstruction): Plan IP vs OBS Justification Based on differential dx, clinical care plan, and risk of adverse events, if untreated, in my clinical judgement this patient requires an acute care setting as: INPATIENT because of an expectation of an over 2 midnight stay. Estimated length of stay (# of days): 2 Documented By: Miguel Ángel Delgadillo MD 09/30/23 0523 Signed By: <Electronically signed by Miguel Ángel Delgadillo MD> 09/30/23 0644 [facility] Work Phone: [phone] [phone] History of Present illness Narrative* Brandie Salmeron APRN.WINDOWS CONSULTANT - 09/22/2023 2:40 PM EDT COLORECTAL SURGERY September 22, 2023 Evan Gill 68 year old This consult was requested by Dr. Singer and my final recommendations will be communicated to the requesting health care provider by way of the shared medical record for internal providers or letter viathe [employer] for external providers. Chief Complaint: post-op visit History of Present Illness: Evan Gill is a 68 year old female s/p a Robotic Assisted Laparoscopic Proctosigmoidectomy (LowAnterior Resection) with Colorectal Anastomosis and Diverting Loop Ileostomy, Laparoscopic Mobilization of Splenic Flexure, Flexible Sigmoidoscopy on 08/25/[address] Singer for rectal cancer. Subsequent readmission immediately post-op for obstructive concerns, discharged without additional surgicalintervention. She presents today for her post-op visit. Doing well since her most recent discharge from the hospital. She has little to no pain and is no longer taking pain medications. Denies feversand chills. She is up and active and recovering. Ileostomy has been functional, under 1 L per her estimate but she has not been emptying. She denies any leaking, she has been independent with feeding. She has ordered her supplies and they arrived at her home yesterday. Denies any concerns about care. She has been eating and drinking without pain. She does report some itching along her lower abdomen near where her Lovenox injections are given. We discussed lifting and activity restrictions as well as diet advancement. FINAL DIAGNOSIS A. Sigmoid colon and rectum, resection: - No evidence of residual invasive adenocarcinoma (see synoptic report). - Fifteen lymph nodes, negative for malignancy (0/15). B. Additional distal margin, excision: - Segment of rectum with no diagnostic abnormality. PAST MEDICAL HISTORY Diagnosis Date Constipation Diverticulosis Malignant melanoma (HCC) Rectal cancer (HCC) PAST SURGICAL HISTORY Procedure Laterality Date COLONOSCOPY PAST SURGICAL HISTORY OF Right knee surgery PAST SURGICAL HISTORY OF skin lesion removed melanoma REMOVAL GALLBLADDER Current Outpatient Medications Medication Sig Dispense Refill acetaminophen (TYLENOL) 500 mg tablet Take 2 tablets by mouth every 8 hours. 100 tablet 0 nitroglycerin sublingual (NITROQUICK) 0.4 mg SL tablet Dissolve 1 tablet under the tongue as neededfor chest pain, may repeat every 5 minutes if no relief up to 3 times. 25 tablet 0 Amoxicillin 500 mg tablet FOR DENTAL WORK omeprazole (PRILOSEC) 40 mg capsule Take 40 mg by mouth once daily. vitamin D3/vitamin K2, MK4, (K2 PLUS D3 ORAL) Take 1 Dose by mouth once daily. compounded progesterone 50 mg capsule Take 150 mg by mouth daily at bedtime. Testosterone 12.5 mg/ 1.25 gram (1 %) glpm Apply 2 Pump as directed once daily. 0.5 MIL ondansetron orally disintegrating (ZOFRAN ODT) 8 mg disintegrating tablet Take 1 tablet by mouth every 8 hours as needed for nausea/vomiting. 90 tablet 2 prochlorperazine (COMPAZINE) 10 mg tablet Take 1 tablet by mouth every 6 hours as needed. 100 tablet 2 ondansetron (ZOFRAN) 8 mg tablet Take 1 tablet by mouth every 8 hours as needed for nausea/vomiting. 90 tablet 2 vortioxetine (TRINTELLIX) 10 mg tablet Take 10 mg by mouth once daily. oxybutynin ER (DITROPAN XL) 15 mg 24 hr Extended Rel Tab Take 15 mg by mouth. aspirin, enteric coated (ASPIRIN, ENTERIC COATED) 81 mg EC tablet Take 81 mg by mouth once daily. docosahexaenoic acid/epa (FISH OIL ORAL) Take 2,000 mg by mouth two times a day. calcium carbonate/vitamin d3(CALCIUM 600 WITH VITAMIN D3 600 MG (1,500 MG)-400 UNIT CAP) Take 1 tablet by mouth once daily. 0 No current facility-administered medications for this visit. ALLERGIES No Known Allergies FAMILY HISTORY Problem Relation Age of Onset Hypertension Mother Lung Cancer Mother Coronary Artery Disease Father Hypertension Father Heart disease Father Hyperlipidemia Father Emphysema Father Social History Tobacco Use Smoking status: Never Passive exposure: Past Smokeless tobacco: Never Vaping Use Vaping Use: Never used Substance Use Topics Alcohol use: Yes Comment: 2 times a month if that Drug use: Never Physical Exam: BP 125/68 (BP Site: Right Arm, BP Position: Sitting) Pulse 62 Temp 36.3 C (97.3 F) Ht 162.6 cm (5' 4 ) Wt 62.6 kg (138 lb) SpO2 100% BMI 23.69 kg/m General Appearance: Well appearing, alert, in no acute distress, well-hydrated, well nourished. Abdomen: Soft, nondistended, nontender. Incisions healing well. Lap site right lateral to ileostomywith mild, irritated tissue, no infection. Ileostomy noted right lower quadrant. Red, healthy mucosa. Round, budded. [place] 2 piece pouch intact, patient placed, effluent is green-brown and applesauce consistency. Assessment Assessment and Plan: Evan Gill is a 68 year old female s/p a Robotic Assisted Laparoscopic Proctosigmoidectomy (LowAnterior Resection) with Colorectal Anastomosis and Diverting Loop Ileostomy, Laparoscopic Mobilization of Splenic Flexure, Flexible Sigmoidoscopy on 08/25/2023. -doing well post-op, expected recovery course. -tumor board discussion regarding pathology results. -OK to slowly advance diet as tolerated. -continue lifting and activity restrictions for 4-6 weeks post-op. -complete lovenox SQ injections as prescribed. -continue probiotics for 1 month post-op. -further follow up with Dr. Singer in 3 months, scheduled for the patient today. Medical Decision Making: Data Reviewed: Tests & Documents Reviewed/ordered: Review of prior notes from hospitalization Review of prior operative reports Review of Pathology I have independently interpreted: n/a I have discussed Evan Gill's treatment plan and/or results with the patient, Dr. Singer. Risk of morbidity, mortality and/or complications of treatment plan: logan Salmeron APRN.MERARY Colorectal Surgery documented in this encounterOhio[facility]-2024 [facility]02-29-2024 Miscellaneous Notes * Telephone Encounter - Venecia Eid HUC - 09/07/2023 8:30 AM EST I called and Spoke with the Patient. I have her scheduled to see Dr. Corona on Monday at 1pm. ROB Villegas * Telephone Encounter - Darnell Corona MD - 09/06/2023 7:40 PM EST I would like to see her in 4 weeks * Telephone Encounter - Colleen Solorio RN - 09/06/2023 3:18 PM EST Pt was discharged from the hospital following her surgery, and readmission for small bowel obst. When would you like to follow up with patient? Please advise Colleen Solorio RN documented in this encounterOhiohealth [facility] Center02-28-2024 Miscellaneous Notes* Telephone Encounter - Colleen Solorio RN - 09/06/2023 2:58 PM EST DISCHARGE CALL BACK Today's date: September 06, 2023 Notified of Pt discharge by: hospital ADT folder Patient discharged on 09/04/23 from [place] to Home Primary Cancer Diagnosis: rectal cancer Admitting Diagnosis: Small bowel obstruction Discharge Summary/SBAR reviewed: Yes Handoff Discussed with Transitional Vice President Tax: No, unavailable Psychosocial Risk Factors: None If patient discharged to SNF/Rehab Facility, phone call completed to reinforce discharge instructions and follow up: N/A Call Disposition: Called patient and spoke with patient Patient identified by name and date of . YES Patient with symptom issues: No Pain: No=0 (pain 0 on a scale of 0-10). Is patient followed by Palliative Medicine? No Palliative Medicine follow up: will consider in the future if needed Any new barriers to care identified? No Any new referrals needed? No Social Work Follow-Up visit scheduled? No Does the patient need interventions no or same day appointment: No MEDICATION ADHERENCE Patient discharged with prescriptions? No Discharge prescriptions filled: N/A Patient understands when to take prescriptions: N/A No new medications were ordered for pt. FOLLOW UP Patient scheduled for follow-up appointment within 5 business days of discharge? No, Other: will check on follow up appointment with Dr Corona Patient reminded of follow-up appointment with [facility] provider, Dr Corona on TBD: Yes Discussed with pt how she is doing. Pt states she feels well and her ostomy is working well. She states the consistency is much better now than before she went into the hospital. Denies needs at thistime. PATIENT EDUCATION / REINFORCEMENT Patient verbalizes understanding of when to seek Medical Attention? YES Patient verbalizes understanding of after hours and weekend phone number? YES Colleen Solorio RN documented in this encounterOhiohealth [facility]02-27-2024 Miscellaneous Notes* Telephone Encounter - Russel Lindquist RN - 09/05/2023 1:07 PM EST Tumor board documented in this encounterOhiohealth [facility] Center02-26-2024 [facility] 09-03-2023 [facility]02-24-2024 NoteMed[facility] [id number] Miscellaneous Notes* Telephone Encounter - Colleen Solorio RN - 09/01/2023 12:58 PM EST DISCHARGE CALL BACK Today's date: September 01, 2023 Notified of Pt discharge by: hospital adt folder Patient discharged on 08/30/23 from [place] to [place] Primary Cancer Diagnosis: rectal cancer Admitting Diagnosis: surgery-ileostomy Discharge Summary/SBAR reviewed: Yes Handoff Discussed with Transitional Vice President Tax: No, unavailable Psychosocial Risk Factors: None unable to assess, didn't speak with patient If patient discharged to SNF/Rehab Facility, phone call completed to reinforce discharge instructions and follow up: N/A Call Disposition: Readmitted or In Emergency Department Colleen Solorio RN documented in this encounterOhiohealth [facility]02-23-2024 [facility] 08-31-2023 [facility]02-22-[facility] History of Past illness Narrative* Problem Noted Date Diagnosed Date Resolved Date Small bowel obstruction 08/31/202308/11 Encounter for ostomy care education 08/26/2023 08/29/2023 documented as of this encounter (statuses as of 09/06/2023) [facility] History of Past illness Narrative* Problem Noted Date Diagnosed Date Resolved Date Small bowel obstruction 08/31/202308/11 Encounter for ostomy care education 08/26/2023 08/29/2023 documented as of this encounter (statuses as of 09/06/2023) [facility] History of Past illness Narrative* Problem Noted Date Diagnosed Date Resolved Date Small bowel obstruction 08/31/202308/11 Encounter for ostomy care education 08/26/2023 08/29/2023 documented as of this encounter (statuses as of 09/07/2023) [facility] History of Past illness Narrative* Problem Noted Date Diagnosed Date Resolved Date Small bowel obstruction 08/31/202308/11 Encounter for ostomy care education 08/26/2023 08/29/2023 documented as of this encounter (statuses as of 09/07/2023) [facility] of Past illness Narrative* Problem Noted Date Diagnosed Date Resolved Date Small bowel obstruction 08/31/202308/11 Encounter for ostomy care education 08/26/2023 08/29/2023 documented as of this encounter (statuses as of 09/14/2023) [facility] of Past illness Narrative* Problem Noted Date Diagnosed Date Resolved Date Small bowel obstruction 08/31/202308/11 Encounter for ostomy care education 08/26/2023 08/29/2023 documented as of this encounter (statuses as of 09/22/2023) [facility] of Past illness Narrative* Problem Noted Date Diagnosed Date Resolved Date Small bowel obstruction 08/31/202308/11 Encounter for ostomy care education 08/26/2023 08/29/2023 documented as of this encounter (statuses as of 10/10/2023) [facility] of Past illness Narrative* Problem Noted Date Diagnosed Date Resolved Date Small bowel obstruction 08/31/202308/11 Encounter for ostomy care education 08/26/2023 08/29/2023 documented as of this encounter (statuses as of 10/11/2023) [facility] of Past illness Narrative* Problem Noted Date Diagnosed Date Resolved Date Small bowel obstruction 08/31/202308/11 Encounter for ostomy care education 08/26/2023 08/29/2023 documented as of this encounter (statuses as of 10/19/2023) [facility] of Past illness Narrative* Problem Noted Date Diagnosed Date Resolved Date Small bowel obstruction 08/31/202308/11 Encounter for ostomy care education 08/26/2023 08/29/2023 documented as of this encounter (statuses as of 10/26/2023) [facility]-2024 NoteMedfield [facility] HospitalZiuqfntj05-00-6850 NoteMed[facility] Hospital 08-29-2023 NoteMedfield State HospitalVnlgevud18-82-9828 NoteMedfield State HospitalDgddxqiz78-22-4946 Note [facility] HospitalUvcfekix13-03-0192 NoteHNO ID: [id number] Author: DONN SAMUELS RN Service: ? Author Type: Registered Nurse Type: Nursing Progress Note Filed: 08/27/2023 02:07 Note Text: Pt states tolerating clears. Oxycodone controlling abd pain and given at 2024. [facility] [id number] History of Past illness Narrative* Problem Noted Date Diagnosed Date Resolved Date Encounter for ostomy care education 08/26/2023 08/29/2023 documented as of this encounter (statuses as of 09/01/2023) [facility]02-[facility]-2024 NoteMedfield State HospitalWaenavid97-80-9445 NoteMed[facility] Hospital 08-25-2023 NoteMedfield State HospitalDfdhxxce99-78-7781 NoteMedfield State HospitalGjstqpjy74-54-4980 Note [facility] HospitalEnrzetad83-45-4845 History and physical note* Jordan Ramos APRN.WINDOWS CONSULTANT - 08/11/2023 12:40 PM EST Images from the original note were not included. HISTORY AND PHYSICAL EXAMINATION SERVICE DATE: 08/11/2023 SERVICE TIME: 12:15 PM PRIMARY CARE PHYSICIAN: Charles Bazzi DO REASON FOR VISIT: Evan C Weyer is a 67 year old female who is scheduled for Procedure(s) (LRB): ROBOTIC LAPAROSCOPY SURGICAL COLECTOMY PARTIAL W/ ANASTOMOSIS W/ COLOPROCTOSTOMY (N/A) COLOSTOMY DIVERTING (N/A) at the request of Dr. Laisha Singer for consultation. My final recommendation will be communicated back to the requesting physician by way of shared medical record or letter. The patient has the following: ACTIVE PROBLEM LIST Osteoarthrosis, Unspecified Whether Generalized Or Localized, Ankle and Foot Personal History of Malignant Melanoma of Skin Rectal Cancer (Hcc) Iron Deficiency Anemia, Unspecified Atrial Fibrillation (Hcc) Essential Hypertension Gastroesophageal Reflux Disease Hemorrhoids Hyperlipidemia Mixed Anxiety Depressive Disorder Subjective CHIEF COMPLAINT: Rectal cancer (HCC) [C20] HPI: Patient is a 67 year old FEMALE presenting for pre-op evaluation for the above procedure. Patient denies any chest pain, shortness of breath, palpitations, fever/chills, nausea/vomiting, fatigue, or diarrhea. no pain at today's visit. Recommended for above surgery. PAST MEDICAL HISTORY Diagnosis Date Constipation Diverticulosis Malignant melanoma (HCC) Rectal cancer (HCC) PAST SURGICAL HISTORY Procedure Laterality Date COLONOSCOPY PAST SURGICAL HISTORY OF Right knee surgery PAST SURGICAL HISTORY OF skin lesion removed melanoma REMOVAL GALLBLADDER FAMILY HISTORY Problem Relation Age of Onset Hypertension Mother Lung Cancer Mother Coronary Artery Disease Father Hypertension Father Heart disease Father Hyperlipidemia Father Emphysema Father SOCIAL HISTORY: Social History Tobacco Use Smoking status: Never Passive exposure: Past Smokeless tobacco: Never Vaping Use Vaping Use: Never used Substance Use Topics Alcohol use: Yes Comment: 2 times a month if that Drug use: Never Prior to Admission medications as of 08/11/23 1203 Medication Sig Last Dose Taking metroNIDAZOLE (FLAGYL) 500 mg tablet Take 1 tablet by mouth three times a day. Take 1 tablet at 6pm, 7pm, and 11pm, the evening prior to surgery. Taking Yes neomycin 500 mg tablet Take 2 tablets by mouth as directed. Take 2 tablet at 6pm, 7pm, and 11pm theevening prior to surgery. Taking Yes Amoxicillin 500 mg tablet FOR DENTAL WORK Taking Yes omeprazole (PRILOSEC) 40 mg capsule Take 40 mg by mouth once daily. Taking Yes vitamin D3/vitamin K2, MK4, (K2 PLUS D3 ORAL) Take 1 Dose by mouth once daily. Taking Yes compounded progesterone 50 mg capsule Take 150 mg by mouth daily at bedtime. Taking Yes Testosterone 12.5 mg/ 1.25 gram (1 %) glpm Apply 2 Pump as directed once daily. 0.5 MIL Taking Yes MEDICATION, NON-DATABASE Take 1 Each by mouth once daily. Metabolic Maintenance DIM Complete - 100mg Diindolylmethane Supplement with Vitamin E, B12 + ActiveFolate Taking Yes MEDICATION, NON-DATABASE Take 1 Each by mouth once daily. [employer] supplies guzman mitochondrial micronutrients and a smart combination of alpha lipoic acid, N- acetyl cysteine, and acetyl L-carnitine Taking Yes ondansetron (ZOFRAN) 8 mg tablet Take 1 tablet by mouth every 8 hours as needed for nausea/vomiting. Taking Yes vortioxetine (TRINTELLIX) 10 mg tablet Take 10 mg by mouth once daily. Taking Yes oxybutynin ER (DITROPAN XL) 15 mg 24 hr Extended Rel Tab Take 15 mg by mouth. Taking Yes amLODIPine-benazepril (LOTREL) 5-10 mg per capsule Take 1 capsule by mouth every morning. Taking Yes meloxicam (MOBIC) 15 mg tablet Take 1 tablet by mouth once daily. Taking Yes aspirin, enteric coated (ASPIRIN, ENTERIC COATED) 81 mg EC tablet Take 81 mg by mouth once daily. Taking Yes docosahexaenoic acid/epa (FISH OIL ORAL) Take 2,000 mg by mouth two times a day. Taking Yes calcium carbonate/vitamin d3(CALCIUM 600 WITH VITAMIN D3 600 MG (1,500 MG)-400 UNIT CAP) Take 1 tablet by mouth once daily. Taking Yes diphenoxylate-atropine (LOMOTIL) 2.5-0.025 mg per tablet Take 1 tablet by mouth four times a day asneeded for up to 30 days. nitroglycerin sublingual (NITROQUICK) 0.4 mg SL tablet Dissolve 1 tablet under the tongue as neededfor chest pain, may repeat every 5 minutes if no relief up to 3 times. ondansetron orally disintegrating (ZOFRAN ODT) 8 mg disintegrating tablet Take 1 tablet by mouth every 8 hours as needed for nausea/vomiting. prochlorperazine (COMPAZINE) 10 mg tablet Take 1 tablet by mouth every 6 hours as needed. polyethylene glycol 3350 (MIRALAX) 17 gram/dose powder Take by mouth once daily. Dissolve dose in 4- 8 ounces of liquid and take as directed. No medication comments found. ALLERGIES No Known Allergies Covid Immunization Dates Overdue - Covid-19 Vaccine (3 - Moderna risk series) Overdue since 10/28/2020 09/30/2020 Imm Admin: COVID-19 original vaccine, full dose, monovalent (MODERNA) 09/03/2020 Imm Admin: COVID-19 original vaccine, full dose, monovalent (MODERNA) REVIEW OF SYSTEMS: PAIN ASSESSMENT: General: No weight loss, malaise or fevers. Neuro: No history of TIA's, stroke, PE MANAGER tumor, impaired sensorium, hemiplegia, paraplegia or quadraplegia. No neurological symptoms or problems. Respiratory: No history of current cough or dyspnea, or pneumonia in the past 6 weeks. No history of respiratory/pulmonary symptoms or problems. 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 : Denies, No LMP recorded. Patient is postmenopausal. Endocrine: No history of diabetes. Has not taken steroids within the past 30 days. No history of endocrinological symptoms or problems. Hematology: h/o anemia Oncology: rectal cancer, last chemo 06/2023 Psych: Depression Musculoskeletal: +OA Skin: Negative for lesions, rash and itching. Objective PHYSICAL EXAM: VITALS: BP 105/75 Pulse 71 Temp (Src) 97 (Temporal Artery) Resp 18 Ht 5' 5 (1.65m) Wt 139 lb 15.9 oz (63.5kg) SpO2 99% BMI 23.30 kg/(m^2). General: Alert and oriented, No acute distress Skin: Normal color, no rash, no lesions. HEENT: EOM, pupils equal, round and reactive. Cardiovascular: Normal S1 & S2, no rubs, murmurs or gallops. No JVD. Pulse regular. Lungs: Normal breath sounds, no wheezes or crackles. Abdomen: Soft, non-tender, no rigidity. Extremities: No deformity, no edema or tenderness, no joint swelling or clubbing. Neurological: Normal cognition and motor skills. Pulses: Carotid and radial pulses normal +2. Diagnostic tests reviewed for today's visit: Lab Value Units Date High Low HB 9.4 g/dL 07/13/2023 15.5 11.5 HCT 28.5 % 07/13/2023 46.0 36.0 WBC 7.01 k/uL 07/13/2023 11.00 3.70 PLT 180 k/uL 07/13/2023 400 150 NA 143 mmol/L 07/13/2023 144 136 K 3.5 mmol/L 07/13/2023 5.1 3.7 GLUC 96 mg/dL 07/13/2023 99 74 BUN 16 mg/dL 07/13/2023 21 7 CREAT 0.63 mg/dL 07/13/2023 0.96 0.58 PTSEC No results within date range. INR No results within date range. APTT No results within date range. ALT 15 U/L 07/13/2023 38 7 AST 15 U/L 07/13/2023 35 13 TBILI 0.3 mg/dL 07/13/2023 1.3 0.2 TSH No results within date range. Lab Value Units Date High Low HCGQT No results within date range. UHCG No results within date range. HCG, BODY* No results within date range. Lab Value Units Date High Low ABORHD No results within date range. ABSCREEN No results within date range. No results found for: HBA1C EKG 12.29.23 EKG 10/26/22 ECHO 04/05/23 STRESS 04/27/23 CONCLUSIONS: 1. SPECT Perfusion Study: Normal. 2. There is no scintigraphic evidence for inducible ischemia. 3. No evidence of scarred myocardium. 4. Left ventricle is normal in size. The left ventricle systolic function is normal. 5. Right ventricle is normal in size. The right ventricle systolic function is normal. 6. This is a low risk scan. CHEST XR 06/26/23 [id number] PLACEMENT, DESCRIBED. NO ACUTE FINDINGS Assessment/Plan Atrial fibrillation (HCC) Assessment: paroxysmal, one instance. chemo induced. No thinner. Has been on aspirin preventatively. RRR today, no murmur Per cardiology ,Dr. Rios: After receiving chemotherapy the patient admitted to the hospital for evaluation for chest pain CTA of the chest was negative. Her echocardiogram was normal referred for a Lexiscan myocardial fusion study which done at the [facility] and was able to retrieve the result and it was normal and I have reviewed that with the patient. Essential hypertension Assessment: stable and compliant with current medications Last 5 Encounter BP Readings: Date: BP: 08/11/2023 105/75 08/07/2023 104/62 07/27/2023 104/68 07/27/2023 145/68 07/21/2023 122/66 Hyperlipidemia Assessment: diet controlled GERD (gastroesophageal reflux disease) Assessment: Managed and stable with current medication. Denies difficulty swallowing or any bleeding. Iron deficiency anemia, unspecified Assessment: Stable. Denies bleeding. States chemo induced. Hemoglobin (g/dL) Date Value 07/13/2023 9.4 07/05/2023 9.9 06/14/2023 10.5 Rectal cancer (HCC) Assessment: last chemo 06/2023, presents for surgical intervention Mixed anxiety depressive disorder Assessment: stable with current medication regimen METS: Climb a flight of stairs or walk up a hill (5.50 METs) Participate in moderate recreational activities, such as golf, bowling, dancing, doubles tennis, orthrowing a baseball or football (6.00 METs) Participate in strenuous sport, such as swimming, singles tennis, football, basketball, or skiing (7.50 METs) Patient denies any chest pain or undue shortness of breath with the above physical activity. ANESTHESIA FINDINGS: Intubation History: No history of difficult intubation Significant Anesthesia Considerations: None Airway Exam: General: Normal appearance Mallampati Score is CLASS I ULBT: Class II - Lower incisors can bite the upper lip below the cinthia line Neck: Normal appearance and function, Distance from hyoid to mentum during neck extension is at least 3 finger breaths Mouth: Normal tongue size and Mouth opening greater than 2 finger breaths Dentition: Caps/crowns Airway History: No abnormal airway history 08/08/2023 Sleep Apnea Probability Snores loudly: No Tired, fatigued or sleepy in daytime: No Stops breathing or choking/gasping during sleep: No High blood pressure: Yes Sleep Apnea Probability Score: 25 (Sleep study not recommended) PLAN This patient is optimally prepared for surgery. CONSULTS: Patient does not require consults for optimization at this time. The Following Tests/Procedures Have Been Initiated: Orders Placed This Encounter Confirm Blood Type Order Comments: [facility] Standing Status: Future Standing Expiration Date: 11/10/2023 Order Specific Question: Did Blood Bank direct you to place this order: Answer: No - Presurgical Workflow +labs per Lucien Mcallister Planned Anesthetic: Per anesthesia choice Instructions Given to Patient: Instructions located in the after visit summary. Patient given verbal and written preop instructions and voices comprehension and compliance. SIGNATURE: Jordan Ramos APRN.CNP PATIENT NAME: Evan Gill DATE: August 11, 2023 TIME: 12:16 PM documented in this encounterOhio[facility]02-02-2024 Instructions* Patient Instructions* Jordan Ramos APRN.CNP - 08/11/2023 12:14 PM EST PATIENT PREOPERATIVE INSTRUCTIONS Laisha Singer MD has scheduled you for your procedure at this surgery center: [facility]: [phone] --[id number] [address]. Please check in on the1st floor at registration desk 6. Please read below carefully for your personalized instructions. Dietary Restrictions: - Follow bowel prep instructions: clear liquids need to be stopped 2 hours prior to schedule arrival at facility Medications: Unless instructed differently below, stay on all of your medications until your surgery. If you start any new medications after today's visit, please contact your surgeon. Pre-Surgery Med Instructions Medication Instructions metroNIDAZOLE (FLAGYL) 500 mg tablet Continue Taking neomycin 500 mg tablet Continue Taking Amoxicillin 500 mg tablet Continue Taking omeprazole (PRILOSEC) 40 mg capsule Continue Taking compounded progesterone 50 mg capsule Continue Taking Testosterone 12.5 mg/ 1.25 gram (1 %) glpm Do not take the day of surgery ondansetron (ZOFRAN) 8 mg tablet Continue Taking vortioxetine (TRINTELLIX) 10 mg tablet Continue Taking oxybutynin ER (DITROPAN XL) 15 mg 24 hr Extended Rel Tab Do not take the day of surgery amLODIPine-benazepril (LOTREL) 5-10 mg per capsule Do not take for 24 hours prior to surgery meloxicam (MOBIC) 15 mg tablet Stop 7 days before surgery If you start any new medications after today's visit, please contact the surgeon's office. Blood Thinning Medications: - Stop NSAIDS (Ibuprofen, Advil, Aleve, Motrin, Celebrex, Mobic, etc.) 7 days before surgery, as directed by your surgeon. - Hold Aspirin 7 days before surgery, as directed by your surgeon. - Stop Vitamin E, ALL multi-vitamins, herbals and dietary supplements 7 days before surgery. - You may take Tylenol (Acetaminophen) or any of your pain medications that do not contain aspirin or NSAIDS as needed. Important Reminders: - If you use CPAP/BIPAP, bring the machine with you to the surgery center. - If you are prescribed inhalers for breathing, continue using them. - Candy, mints, and tobacco products are NOT permitted the morning of surgery. - Hearing aids, dentures and glasses may be worn the morning of surgery. - NO jewelry, body piercings, makeup, hairpins or contacts are to be worn the day of surgery. If you develop symptoms such as a fever, cold, or flu, or have other changes to your health within TWO DAYS of scheduled surgery or the morning of surgery, please contact the surgery center above. Personal Belongings: -Please have photo ID and insurance cards. -If you do not have a copy of advance directives on file with us, please bring a copy with you on the day of surgery. - Leave ALL valuables and money at home or with family members. For Outpatient Procedures: - YOU MUST HAVE A RESPONSIBLE CAR STARTER TAKE YOU HOME. A CHRISTIAN SCIENCE HEALER OR TELEPRINTER INSTALLER CANNOT BE MADE A RESPONSIBLE CAR STARTER. - We recommend that a responsible person stays with you overnight to take care of you. - You cannot stay in a hotel alone after outpatient surgery. You will not be permitted to have yoursurgery, if you do not have someone to take care of you. Arrival Time for Surgery: - The Surgery Center or hospital where you are having surgery will call the afternoon before surgery (or Monday for Monday surgery) with a scheduled arrival time. - If you have not heard by 4 pm, please contact the surgery center above. Please be aware that emergency situations arise, which may delay or change your surgical time. If this happens, we will notify you as soon as possible and regret any inconvenience. If you already have an Advance Directive, please fax a copy to [phone] or email to for it to be added to your chart. If you do not have an Advance Directive, you can find the appropriate form and more information at [email or web address]. We recommend that youcomplete the Advance Directive form found on the website and bring it with you the day of your surgery. It can be witnessed and scanned into your chart that day. documented in this encounterOhiohealth [facility] Center01-29-2024 [facility]-2024 NoteF[facility]01-16-2024 History of Present illness Narrative* Marcos Rios MD - 07/25/2023 12:40 PM EST Subjective Evan Gill is a 67 y.o. female Chief Complaint Follow-up HPI Patient is here for follow-up from recent hospitalization. She was diagnosed recently with colorectal cancer. After receiving chemotherapy the patient admitted to the hospital for evaluation for chest pain. Cardiac workup including CTA of the chest was negative. Her echocardiogram was normal. Then the patient chemotherapy was switched and apparently she was placed on a different regimen including5-FU , Leucovorin I and Eloxatin but apparently developed similar reaction with complaint of retrosternal chest heaviness requiring hospitalization. Following that she was referred for a Lexiscan myocardial fusion study which done at the [facility] and was able to retrieve the result and it was normal and I have reviewed that with the patient. The patient report in the near future she is undergoing reevaluation with PET scan and MRI. Currently no further chest pain. Assessment 1. Presentation recently with 2 episode of chest pain following chemotherapy for colorectal cancer.Cardiac workup was benign including echo, CTA, and Lexiscan myocardial fusion study. I did discuss with the patient the possibility of coronary spasm 2. Hypertension on treatment 3. History of colorectal cancer Plan 1. I recommended the patient to continue present medical regimen 2. I reviewed with her the result 3 diagnostic testing 3. The possibility of coronary spasm reviewed with the patient and the possibility of increasing her calcium channel blockers versus adding long-acting nitrate may be considered down the road if her symptoms recur 4. Follow-up in 6 months Review of Systems All other systems reviewed and are negative. Visit Vitals BP 138/88 (BP Location: Left arm, Patient Position: Sitting) Pulse 66 Ht 1.651 m (5' 5 ) Wt 66.2 kg (146 lb) BMI 24.30 kg/m Smoking Status Never BSA 1.74 m Objective Physical Exam Constitutional: Appearance: Normal appearance. She is normal weight. HENT: Nose: Nose normal. Neck: Vascular: No carotid bruit. Cardiovascular: Rate and Rhythm: Normal rate. Pulses: Normal pulses. Heart sounds: Normal heart sounds. Pulmonary: Effort: Pulmonary effort is normal. Abdominal: General: Bowel sounds are normal. Palpations: Abdomen is soft. Genitourinary: Rectum: Normal. Musculoskeletal: General: Normal range of motion. Cervical back: Normal range of motion. Right lower leg: No edema. Left lower leg: No edema. Skin: General: Skin is warm and dry. Neurological: General: No focal deficit present. Mental Status: She is alert. Psychiatric: Mood and Affect: Mood normal. Behavior: Behavior normal. Thought Content: Thought content normal. Judgment: Judgment normal. Current Medications Current Outpatient Medications: amLODIPine-benazepriL (Lotrel) 5-10 mg capsule, Take 1 capsule by mouth once daily., Disp: , Rfl: aspirin 81 mg EC tablet, Take 1 tablet (81 mg) by mouth once daily., Disp: , Rfl: calcium carbonate (CALCIUM 500 ORAL), Take 1 tablet by mouth once daily., Disp: , Rfl: magnesium, as gluconate, (Mag-G) 27 mg magnesium (500 mg) tablet, Take 1 tablet (27 mg) by mouth once daily., Disp: , Rfl: meloxicam (Mobic) 15 mg tablet, Take 1 tablet (15 mg) by mouth once daily., Disp: , Rfl: omega 0-tlk-hny-fish oil (Fish OiL) 1,000 mg (120 mg-180 mg) capsule, Take 1 capsule (1,000 mg) by mouth once daily., Disp: , Rfl: omeprazole (PriLOSEC) [address] capsule, Take 1 capsule (40 mg) by mouth once daily., Disp: , Rfl: oxybutynin XL (Ditropan-XL) 15 mg 24 hr tablet, Take 1 tablet (15 mg) by mouth once daily., Disp: ,Rfl: potassium citrate 99 mg capsule, Take 1 capsule by mouth once daily., Disp: , Rfl: vortioxetine (Trintellix) 10 mg tablet tablet, Take 1 tablet (10 mg) by mouth once daily., Disp: , Rfl: Assessment/Plan 1. Other chest pain Follow Up In Cardiology 2. Essential hypertension Follow Up In Cardiology 3. Colorectal cancer (CMS/HCC) 4. BMI 24.0-24.9, adult documented in this encounterK[facility] Work Phone: 1(655) 469-477901-16-2024 Instructions* Patient Instructions* Madison Sylvester LPN - 07/25/2023 12:40 PM EST Please bring all medicines, vitamins, and herbal supplements with you when you come to the office. Prescriptions will not be filled unless you are compliant with your follow up appointments or have a follow up appointment scheduled as per instruction of your physician. Refills should be requested at the time of your visit. Follow up 6 months Same medications documented in this encounterK[facility] Work Phone: 1(463) 601-383301-12-2024 [facility]01-12-2024 [facility]01-12-2024 [facility] 07-18-2023 NoteF[facility]01-04-2024 [facility]12-29-2023 NoteO ID: [id number] Author: Abigail Burroughs RN Service: ? Author Type: Registered Nurse Type: Progress Notes Filed: 07/07/2023 5:29 PM Note Text: Dr Corona arrived at infusion suite to assess patient Abigail Burroughs RNFostoria City Hospital12-29-2023 NoteFost[facility]12-29-2023 NoteF[facility]12-27-2023 NoteF[facility]12-13-2023 Miscellaneous Notes* Telephone Encounter - Colleen Solorio RN - 06/21/2023 12:15 PM EST Pt was in for education yesterday and pharmacist recommended holding zofran with the history of coronary spasm's with capecitabine. Discussed with Dr Corona and he's doesn't feel that the zofran will be of concern and states it's ok for pt to take it as needed for nausea. Dr Corona also states that he discussed with pt stopping her infusion pump if she develops chest pain during treatment. Pt is aware of this and she did mention this during her education. Colleen Solorio RN documented in this encounterOhiohealth [facility] Center12-12-2023 NoteFost[facility]12-12-2023 History of Present illness Narrative* Colleen oSlorio RN - 06/20/2023 11:02 AM EST ONCOLOGY PATIENT EDUCATION NOTE TOPIC: Chemotherapy, Medications: oxaliplatin, leucovorin, 5FU READINESS TO LEARN: COGNITIVE ABILITY: Alert and oriented MOTIVATION TO LEARN: Interested FAMILY SUPPORT: High - Very involved in pt care INSTRUCTION PROVIDED TO: Patient and Daughter INSTRUCTION PROVIDED BY: Nurse Coordinator and Pharmacist PATIENT LEARNS BEST BY: Multiple Methods FACTORS AFFECTING LEARNING: None PHYSICAL LIMITATIONS AFFECTING LEARNING: None LEARNING RESPONSE DIAGNOSIS: rectal cancer METHOD OF INSTRUCTION: Individual instruction Written instruction - handouts Verbal instruction PATIENT/FAMILY RESPONSE: Verbalizes understanding of: CHEMOTHERAPY-Regimen, toxicity and side effects EQUIPMENT USE-Correct use of Equipment INFECTION MANAGEMENT-Signs and symptoms of an infection and importance of contacting the physician MEDICAL REGIMEN-Importance of following prescribed medical regimen MEDICATION PRESCRIBED-Accurate knowledge of prescribed medication prior to discharge MEDICATION ROUTE-Correct route for administration of the prescribed medication MEDICATION SIDE EFFECTS-Side effects associated with the medication that warrant a call to the physician PATIENT SAFETY PRINCIPLES SYMPTOM MANAGEMENT-Correct actions to take to manage symptoms associated with his/her disease/illness WORSENING CONDITION-Signs and symptoms of a worsening condition that warrant a call to the physician Information received as demonstrated by interest and questions FOLLOW UP PLAN: Patient instructed to call with any further issues Recommend - Recommend continued instruction and follow up as directed Follow up phone call. Contact information given. SUPPLEMENTAL MATERIAL: Written material was provided at this visit with the following information: - Chemotherapy education was provided by a pharmacist YES - Side effect management information was provided/discussed including but not limited to: abdominaldiscomfort, anemia, appetite changes, arthralgia, bowel habit changes, cardiac toxicity, chest pain, cold sensitivity, diet, electrolyte disturbances, fatigue, hand-foot syndrome, headache, hypersensitivity reaction, infection, mouth hygiene, mucositis, myalgia, nausea/vomitting, neutropenia, peripheral neuropathy, rash, risk for DVT, shortness of breath, skin changes, taste changes, thrombocytopenia YES - Provided important phone numbers and contacts during and after hours. YES - Provided information on symptoms that require immediate assistance. YES - Provided Chemotherapy when to call handouts YES - Preventing infection. YES - Treatment schedule and confirmation of appointment times. YES - Available support groups. NA - The importance of contraception during the course of chemotherapy NA - Neutropenic fever protocol discussed with patient, which included the importance of reporting anyfever of 100.4F (38.0C) or greater to the healthcare team as noted on the provided wallet card and/or magnet. YES - Patient has antiemetics in the home from previous treatment. - Pt has My [employer] binder in the home from previous treatment. Time Spent: 40 minutes REFERRAL (RECOMMENDATION): N/A Colleen Solorio RN * Brandie Clayton [facility] - 06/20/2023 10:00 AM EST Images from the original note were not included. [facility] Department of Pharmacy Oncology Pharmacy Medication Education Patient Name: Evan Gill Primary Oncologist: Cj Diagnosis: rectal cancer Evan Gill is a 67 year old patient and daughter here today for medication education for IV FLUOROURACIL , LEUCOVORIN , and OXALIPLATIN . Drug Interactions: Clinically significant interactions with chemotherapy, immunosuppression, or other standard of caretreatment plan medications anticipated: No. There are no pertinent drug interactions identified. Patient was counseled accordingly. Allergies: Patient confirmed allergies documented in Epic are correct: Yes Was medication education provided?: Yes Medication Education: Administration and schedule: OXALIPLATIN 85 5FU 400 IVP D1 5FU 2400 CADD OVER 46 HRS - Q14D Potential side effects discussed: anemia, appetite changes, bowel habit changes, cardiac toxicity, cold sensitivity, diet, electrolyte disturbances, fatigue, hypersensitivity reaction, infection, mucositis, nausea/vomitting, neutropenia, rash, thrombocytopenia PO chemo: Not applicable Was medication reconciliation performed?: Yes Changes made to medication list? Yes The following medications were updated within the home medication list: Medications DISCONTINUED from home medication list: KCL Pyridium Probiotic MG Current Outpatient Medications Medication Sig Amoxicillin 500 mg tablet FOR DENTAL WORK omeprazole (PRILOSEC) 40 mg capsule Take 40 mg by mouth once daily. vitamin D3/vitamin K2, MK4, (K2 PLUS D3 ORAL) Take 1 Dose by mouth once daily. compounded progesterone 50 mg capsule Take 150 mg by mouth daily at bedtime. Testosterone 12.5 mg/ 1.25 gram (1 %) glpm Apply 2 Pump as directed once daily. 0.5 MIL MEDICATION, NON-DATABASE Take 1 Each by mouth once daily. Metabolic Maintenance DIM Complete - 100mg Diindolylmethane Supplement with Vitamin E, B12 + ActiveFolate MEDICATION, NON-DATABASE Take 1 Each by mouth once daily. [employer] supplies guzman mitochondrial micronutrients and a smart combination of alpha lipoic acid, N- acetyl cysteine, and acetyl L-carnitine ondansetron orally disintegrating (ZOFRAN ODT) 8 mg disintegrating tablet Take 1 tablet by mouth every 8 hours as needed for nausea/vomiting. prochlorperazine (COMPAZINE) 10 mg tablet Take 1 tablet by mouth every 6 hours as needed. ondansetron (ZOFRAN) 8 mg tablet Take 1 tablet by mouth every 8 hours as needed for nausea/vomiting. polyethylene glycol 3350 (MIRALAX) 17 gram/dose powder Take by mouth once daily. Dissolve dose in 4- 8 ounces of liquid and take as directed. vortioxetine (TRINTELLIX) 10 mg tablet Take 10 mg by mouth once daily. oxybutynin ER (DITROPAN XL) 15 mg 24 hr Extended Rel Tab Take 15 mg by mouth. amLODIPine-benazepril (LOTREL) 5-10 mg per capsule Take 1 capsule by mouth every morning. meloxicam (MOBIC) 15 mg tablet Take 1 tablet by mouth once daily. aspirin, enteric coated (ASPIRIN, ENTERIC COATED) 81 mg EC tablet Take 81 mg by mouth once daily. docosahexaenoic acid/epa (FISH OIL ORAL) Take 2,000 mg by mouth two times a day. calcium carbonate/vitamin d3(CALCIUM 600 WITH VITAMIN D3 600 MG (1,500 MG)-400 UNIT CAP) Take 1 tablet by mouth once daily. No current facility-administered medications for this visit. - Chemotherapy education was provided by a pharmacist NO - Thank you for allowing us to participate in the care of this patient. I spent 15 time (15 minute increments) with the patient Joysaran Mylene Clayton Pager: documented in this encounterOhiohealth [facility] Center12-12-2023 Miscellaneous Notes* Addendum Note - Brandie Clayton RPh - 06/20/2023 10:00 AM ESTAddended by: BRANDIE CLAYTON on: 06/20/2023 11:35 AM Modules accepted: Orders documented in this encounterOhiohealth [facility] Center12-12-2023 [facility]12-06-2023 [facility]12-06-2023 History of Present illness Narrative* Darnell Corona MD - 06/14/2023 3:17 PM EST Images from the original note were not included. PATIENT NAME: Evan Gill CLINIC NO.: [id number] ATTENDING PHYSICIAN: Darnell Corona MD DATE OF SERVICE: June 14, 2023 Some of the elements of this note have been copied from my previous progress note dated 04/28/2023.All the information has been reviewed carefully. Dear Dr. Bazzi here is an update on a follow up visit on female Evan Gill at the clinic June 14, 2023 Diagnosis: MRI staged T3c,N+M0- Adenocarcinoma of the mid-low rectum Treatment History: Xeloda and XRT 03/29/2023- Admitted 04/06/2023 with coronary spasms and elevated Troponin- ECHO normal, CTA negative for PE.Xeloda stopped shortly after completed radiation 05/10/2023 HPI: Evan Gill is a 67 year old year old female here for follow up. Sigmoidoscopy 06/08/2023: Rectal mass 4 to 7 cm from the anal verge. - Malignant tumor in the mid rectum, improved from prior. - Non-bleeding internal hemorrhoids. - The examination was otherwise normal. - No specimens collected. She is doing well. PAST MEDICAL HISTORY Diagnosis Date Constipation Diverticulosis Malignant melanoma (HCC) Rectal cancer (HCC) Social History Tobacco Use Smoking status: Never Passive exposure: Past Smokeless tobacco: Never Vaping Use Vaping Use: Never used Substance Use Topics Alcohol use: Yes Comment: socially a couple times per month Drug use: Never FAMILY HISTORY Problem Relation Age of Onset Hypertension Mother Lung Cancer Mother Coronary Artery Disease Father Hypertension Father Heart disease Father Hyperlipidemia Father Emphysema Father Past medical, social and family history reviewed without any changes. REVIEW OF SYSTEMS GENERAL: No weight loss, malaise or fevers. No night sweats. HEENT: Negative for headaches, No changes in hearing or vision, no nose bleeds or other nasal problems. RESPIRATORY: Negative for cough, wheezing and shortness of breath CARDIOVASCULAR: Negative for chest pain, leg swelling and palpitations GI: Negative for abdominal discomfort, blood in stools or black stools and change in bowel habits : Negative for dysuria, frequency and incontinence MUSCULOSKELETAL: Negative for joint pain or swelling, back pain, and muscle pain. SKIN: Negative for lesions, rash, and itching. HEMATOLOGY/LYMPHOLOGY Negative for prolonged bleeding, bruising easily, and swollen nodes. NEURO: Negative for numbness or tingling of hands/feet. No weakness. PHYSICAL EXAMINATION: BP 111/56 Pulse 77 Temp (Src) 98 (Temporal) Resp 16 Ht 5' 4.016 (1.63m) Wt 139 lb 12.8 oz (63.4kg) SpO2 94% BMI 23.98 kg/(m^2). Wt 61.8 kg (136 lb 3.2 oz) BMI 23.92 kg/m2 Last 3 Encounter Wt Readings: Date: Wt: 03/22/2023 61.8 kg (136 lb 3.2 oz) 03/14/2023 62.6 kg (138 lb) 03/08/2023 62.8 kg (138 lb 6.4 oz) General appearance:ECOG PERFORMANCE STATUS: 1- Restricted in physically strenuous activity. Carries out light duty. Patient in NAD. Skin: Skin color, texture, turgor normal. No rashes or lesions. Eyes: Anicteric sclera. Pupils are equally round and reactive to light. Extraocular movements are intact. Lymph Nodes: No cervical, supraclavicular, axillary or inguinal adenopathy. Oropharynx: Lips, mucosa, and tongue normal. Back: No pain to percussion. Negative SLR test Lungs clear to auscultation, No wheezing or rhonchi Heart: RRR without murmur, gallop, or rubs. Abdomen soft, non-tender. No masses, organomegaly Extremities: No deformities. No edema Neuro: Gait and speech normal. Reflexes normal and symmetric. Muscular strength intact. Sensation grossly intact. Rectal: Deferred : Deferred LABS: Glucose (mg/dL) Date Value 06/14/2023 118 Potassium (mmol/L) Date Value 06/14/2023 4.4 Sodium (mmol/L) Date Value 06/14/2023 142 Chloride (mmol/L) Date Value 06/14/2023 108 CO2 (mmol/L) Date Value 06/14/2023 25 Creatinine (mg/dL) Date Value 06/14/2023 0.71 BUN (mg/dL) Date Value 06/14/2023 23 Anion Gap (mmol/L) Date Value 06/14/2023 9 Calcium, Total (mg/dL) Date Value 06/14/2023 9.1 Protein, Total (g/dL) Date Value 06/14/2023 6.6 Albumin (g/dL) Date Value 06/14/2023 4.2 Bilirubin, Total (mg/dL) Date Value 06/14/2023 0.2 Alkaline Phosphatase (U/L) Date Value 06/14/2023 67 AST (U/L) Date Value 06/14/2023 15 ALT (U/L) Date Value 06/14/2023 16 WBC Date Value Ref Range Status 06/14/2023 11.01 (H) 3.70 - 11.00 k/uL Final RBC Date Value Ref Range Status 06/14/2023 3.64 (L) 3.90 - 5.20 m/uL Final Hemoglobin Date Value Ref Range Status 06/14/2023 10.5 (L) 11.5 - 15.5 g/dL Final Hematocrit Date Value Ref Range Status 06/14/2023 32.5 (L) 36.0 - 46.0 % Final MCV Date Value Ref Range Status 06/14/2023 89.3 80.0 - 100.0 fL Final MCH Date Value Ref Range Status 06/14/2023 28.8 26.0 - 34.0 pg Final MCHC Date Value Ref Range Status 06/14/2023 32.3 30.5 - 36.0 g/dL Final RDW-CV Date Value Ref Range Status 06/14/2023 15.1 (H) 11.5 - 15.0 % Final Platelet Count Date Value Ref Range Status 06/14/2023 300 150 - 400 k/uL Final MPV Date Value Ref Range Status 06/14/2023 8.4 (L) 9.0 - 12.7 fL Final Abs Neut Date Value Ref Range Status 06/14/2023 8.39 (H) 1.45 - 7.50 k/uL Final Lymphocytes % Date Value Ref Range Status 06/14/2023 13.7 % Final Abs Lymph Date Value Ref Range Status 06/14/2023 1.51 1.00 - 4.00 k/uL Final Monocytes % Date Value Ref Range Status 06/14/2023 8.8 % Final Abs Mcintosh Date Value Ref Range Status 06/14/2023 0.97 (H) <0.87 k/uL Final Eosinophils % Date Value Ref Range Status 06/14/2023 0.5 % Final Abs Eosin Date Value Ref Range Status 06/14/2023 0.06 <0.46 k/uL Final Basophils % Date Value Ref Range Status 06/14/2023 0.3 % Final Abs Baso Date Value Ref Range Status 06/14/2023 0.03 <0.11 k/uL Final PATH: Colonoscopy 02/2023: Imaging: CT Scan of the Chest and Abdomen and Pelvis 02/2023: MRI rectum 03/2023: 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 Stage: T3c N+ MRF: Involved (tumor margin within 1 mm of MRF Sphincter involvement: No. Suspicious extra mesorectal lymph nodes: Yes EMVI: Yes. MRI Rectum 06/12/2023: Decrease in size of mid rectal mass with some post-treatment fibrosis but with residual viable tumor present. Resolution of prior EMVI. A single residual mesorectal node remains borderline in size (although decreased since the baseline study). Remainder of the previously noted nodes are no longer present. 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 Since 03/15/2023, post treatment primary tumor assessment: Incomplete response (likely residual tumor). mrTRG: Grade 3 - Moderate response Suspicious Mesorectal lymph nodes: Yes. Suspicious Extramesorectal lymph nodes: No. Assessment and Plan: Evan Gill is a 67 year old year old female here for follow up. MRI Staged T3c,N+,M0 mid to low rectal cancer. Discussed the rational and toxicity of STACY . She hadstarted Xeloda and radiation 03/29/2023 and presented with what sounds like a coronary spasm, concerning for 5 fu induced. She is off the Xeloda and completed radiation only 05/10/2023. Saw cardiology and stress test was negative and they felt a 5FU challenge is reasonable. She had MRI and sigmoidoscopy with response and discussed options and will proceed with 4 months of FOLFOX. Discussed the cardiac and heme and neurotoxicity in detail and she agrees and will arrange a PORT placement and start FOLFOX 07/04/2023 Chemo teach and PORT placement and Chemo to complete STACY to start 07/04/2023 Thank you for the kind referral. If there are any questions and or concerns please do not hesitate to contact me at [phone]. Darnell Corona MD Hematology/Medical Oncology [facility] Pasquale spent a total of 30 minutes on the date of the service which included preparing to see the patient, [id number] patient care, completing clinical documentation, obtaining and/or reviewing separately obtained history, performing a medically appropriate examination, counseling and educating the pat ient/family/caregiver, and ordering medications, tests, or procedures. CC: documented in this encounterOhio[facility]12-04-2023 History of Present illness Narrative* Joann Torres, RT(R) - 06/12/2023 11:10 AM EST Radiology Service Progress Note PATIENT NAME: Evan Gill DATE OF SERVICE: June 12, 2023 TIME: 11:31 AM PATIENT IDENTITY VERIFICATION COMPLETED USING TWO (2) IDENTIFIERS: Name and Date of confirmedby patient verbally. FALL SCREENING: Has the patient had 2 falls in the last year or 1 fall with injury or currently using an Ambulatory Assistive Device (Walker, Cane, Wheelchair, Crutches, etc.)? No PATIENT GENDER DATA: Female. status: : No status: NO. PATIENT RELEVANT IMPLANT DATA REVIEWED: Yes RADIOLOGY DEPARTMENT: MR; Exam(s) Completed: Body: Rectal PERIPHERAL IV DATA: Site assessment: Clean,Dry and Intact, Site disposition Discontinued SIGNED BY: RT Josh(R) June 12, 2023 11:31 AM * Joann Torres RT(R) - 06/12/2023 11:10 AM EST Radiology Service Progress Note DATE OF SERVICE: June 12, 2023 TIME: 11:44 AM PATIENT IDENTITY VERIFICATION COMPLETED USING TWO (2) STANDARD IDENTIFIERS: Name and Date of confirmed by patient verbally. FALL SCREENING: Has the patient had 2 falls in the last year or 1 fall with injury or currently using an Ambulatory Assistive Device (Walker, Cane, Wheelchair, Crutches, etc.)? No PATIENT GENDER DATA: Female. status: : No status: NO. PATIENT RELEVANT IMPLANT DATA REVIEWED: Yes ALLERGIES: Reviewed and unchanged CONTRAST ALLERGY: NO. EXAM: MRI - CONTRAST TYPE: GROUP II PERIPHERAL IV DATA: Ambulatory: A peripheral IV was started in the Right antecubital site with a Angio cath: 22 gauge. RADIOLOGY DEPARTMENT: MR; Exam(s) Completed: Body: Rectal SIGNATURE: RT Josh(R) PATIENT NAME: Evan Gill DATE: June 12, 2023 TIME: 11:44 AM documented in this encounterOhiohealth [facility]12-04-2023 [facility] NoteF[facility]11-30-2023 History and physical note* Laisha Singer MD - 06/08/2023 1:00 PM EST UPDATED HISTORY AND PHYSICAL EXAMINATION SERVICE DATE: 06/08/2023 SERVICE TIME: 12:39 PM PHYSICAL EXAM MUST BE COMPLETED ON ADMISSION The History and Physical (completed in the past 30 days) has been reviewed and the patient has beenexamined. The contents accurately reflect the patient's condition with the following additions or revisions since the H&P was completed. CV: RRR Pulm: no increased respiratory effort Examination indicates no changes. This H&P can be found in the Electronic Medical Record dated today. SIGNATURE: Laisha Singer MD PATIENT NAME: Evan Gill DATE: June 08, 2023 TIME: 12:39 PM documented in this encounterOhiohealth [facility]11-20-2023 NoteFost[facility]11-20-2023 History of Present illness Narrative* Del Hudson MD - 05/29/2023 10:25 AM EST Radiation Oncology - Follow Up Note PATIENT NAME: Evan Gill PATIENT DIAGNOSIS: MRI staged T3c,N+M0- Adenocarcinoma of the mid-low rectum RADIATION SUMMARY: DATES OF TREATMENT: 05/05/23-05/10/23 AREA TREATED: Pelvis/Rectum DELIVERED DOSE: Pelvis/Rectum: 4,500 cGy in 25 fractions, 3 Arcs, IMRT, 10MV with daily CBCT DELIVERED DOSE: Rectal Boost: 540cGy in 3 fractions, 2 Arcs, IMRT, 10MV with daily CBCT TOTAL: 5, 040cGy in 28 fractions ELAPSED TIME: 42 days. INTERVAL HISTORY: Doing well. Denies significant diarrhea. No bladder issues. Denies any bleeding. No significant mucus discharge. No abdominal pain. Denies chest pain or shortness of breath. ALLERGIES No Known Allergies MEDICATIONS: phenazopyridine (PYRIDIUM) 100 mg tablet Take 2 tablets by mouth three times a day as needed. omeprazole (PRILOSEC) 40 mg capsule Take 40 mg by mouth once daily. vitamin D3/vitamin K2, MK4, (K2 PLUS D3 ORAL) Take 1 Dose by mouth once daily. compounded progesterone 50 mg capsule Take 150 mg by mouth daily at bedtime. Testosterone 12.5 mg/ 1.25 gram (1 %) glpm Apply 2 Pump as directed once daily. 0.5 MIL MEDICATION, NON-DATABASE Take 1 Each by mouth once daily. Metabolic Maintenance DIM Complete - 100mg Diindolylmethane Supplement with Vitamin E, B12 + ActiveFolate MEDICATION, NON-DATABASE Take 1 Each by mouth once daily. [employer] supplies guzman mitochondrial micronutrients and a smart combination of alpha lipoic acid, N- acetyl cysteine, and acetyl L-carnitine ondansetron orally disintegrating (ZOFRAN ODT) 8 mg disintegrating tablet Take 1 tablet by mouth every 8 hours as needed for nausea/vomiting. prochlorperazine (COMPAZINE) 10 mg tablet Take 1 tablet by mouth every 6 hours as needed. ondansetron (ZOFRAN) 8 mg tablet Take 1 tablet by mouth every 8 hours as needed for nausea/vomiting. polyethylene glycol 3350 (MIRALAX) 17 gram/dose powder Take by mouth once daily. Dissolve dose in 4- 8 ounces of liquid and take as directed. vortioxetine (TRINTELLIX) 10 mg tablet Take 10 mg by mouth once daily. oxybutynin ER (DITROPAN XL) 15 mg 24 hr Extended Rel Tab Take 15 mg by mouth. amLODIPine-benazepril (LOTREL) 5-10 mg per capsule Take 1 capsule by mouth every morning. meloxicam (MOBIC) 15 mg tablet Take 1 tablet by mouth every afternoon. Magnesium 250 mg tab Take 500 mg by mouth. potassium citrate 99 mg cap Take 1 tablet by mouth every morning. aspirin, enteric coated (ASPIRIN, ENTERIC COATED) 81 mg EC tablet Take 81 mg by mouth once daily. Lactobacillus acidophilus (PROBIOTIC ORAL) Take by mouth. docosahexaenoic acid/epa (FISH OIL ORAL) Take by mouth. calcium carbonate/vitamin d3(CALCIUM 600 WITH VITAMIN D3 600 MG (1,500 MG)-400 UNIT CAP) Take one(1) tablet three times daily. REVIEW OF SYSTEMS: GENERAL: Negative for weight loss, fevers, chills, or night sweats. HEENT: Negative for sudden vision or hearing changes. NECK: Negative for masses in the neck. RESPIRATORY: Negative for cough or shortness of breath. CARDIAC: Negative for chest pain, palpitations, murmurs, or syncopal episodes. GI: Negative for nausea, vomiting, diarrhea, constipation, blood per rectum, or melena. : Negative for dysuria, hematuria, urgency, frequency or incontinence. MUSCULOSKELETAL: Negative for limitations in movement, pain, or swelling. NEURO: Negative for dizziness, headache, weakness or numbness. HEMATOLOGIC: Negative for bleeding or easy bruising. SKIN: Negative for rashes or other skin changes. PHYSICAL EXAM: VS: BP 134/78 Pulse 64 Temp (!) 35.9 C (96.7 F) Resp 18 Wt 62.6 kg (138 lb) SpO2 98% BMI 23.68 kg/m KPS: 100 General Appearance: Alert and oriented. No acute distress. Rectal: Deferred Musculoskeletal: No edema. Normal ROM in extremities. No bone or spine tenderness. Neuro: Speech fluent. Gait normal. No focal deficits. Skin: No rashes noted Lymphatics: No palpable lymphadenopathy. ASSESSMENT AND PLAN: MRI staged T3c,N+M0- Adenocarcinoma of the mid-low rectum Doing well after completion of radiation, initially with combined capecitabine chemotherapy howeverdue to cardiac issues this was stopped and completed radiation without further concurrent chemotherapy. She has had significant improvement in her rectal symptoms. No significant postradiation related issues including pelvic pain or bleeding. She has further follow-up including endoscopy and scan coming up. I will plan to see her back in 2 to 3 months for follow-up. Signed by: Del Hudson MD cc: Charles Bazzi, [address] [id number] No referring provider defined for this encounter. documented in this encounterOhiohealth [facility]11-02-2023 Evaluation note* Encounter Date Diagnosis Assessment Notes Treatment Notes Treatment Clinical Notes May, Hypertension (ICD-10 - I10) May, Stress incontinence in female (ICD-10 - N39.3) May, GERD (gastroesophageal reflux disease) (ICD-10 - K21.9) [place] Other [id number] History of Present illness Narrative* Del Hudson MD - 05/10/2023 12:00 AM EDT [facility] Radiation Oncology Department RADIATION ONCOLOGY - COMPLETION NOTE PATIENT: EVAN GILL: 1955 DATES OF TREATMENT: 05/05/23-05/10/23 DIAGNOSIS: MRI staged T3c,N+M0- Adenocarcinoma of the mid-low rectum AREA TREATED: Pelvis/Rectum DELIVERED DOSE: Pelvis/Rectum: 4,500 cGy in 25 fractions, 3 Arcs, IMRT, 10MV with daily CBCT DELIVERED DOSE: Rectal Boost: 540cGy in 3 fractions, 2 Arcs, IMRT, 10MV with daily CBCT TOTAL: 5, 040cGy in 28 fractions ELAPSED TIME: 42 days. CLINICAL SUMMARY: The patient tolerated radiation with mild to moderate radiation related dermatitis, diarrhea and fatigue as expected. Due to cardiac issues concurrent xeloda was stopped after the first week. She had noted functional improvement as well as soft tissue reduction seen on CBCT. The pa tient was able to complete radiation treatment as intended though with short break due to cardiac workup. The disease response will be assessed in clinic. The patient will be seen again in 2 weeks for postradiation follow-up. Staff Physician Shan Hudson M.D. / NRS 33:11 PM Electronically Signed cc: Dr. Charles Corona documented in this encounterOhiohealth [facility]11-01-2023 NoteF[facility]10-30-2023 NoteFost[facility]10-30-2023 History of Present illness Narrative* Del Hudson MD - 05/08/2023 11:02 AM EDT Radiation Oncology - On Treatment Review (OTR) Note PATIENT NAME: Evan Gill PATIENT DIAGNOSIS: MRI staged T3c,N+M0- Adenocarcinoma of the mid-low rectum COURSE: definitive and concurrent chemotherapy Current dose: 4680 cGy in 26 fx Planned dose: 5040 cGy in 28 fx Status: Patient states there is no possibility she is at this time SUBJECTIVE: Doing well. No diarrhea. No other new problems or concerns. Denies chest pain or shortness of breath. PHYSICAL EXAM: 05/08/23 1059 BP: 116/72 Pulse: 74 Resp: 16 Temp: 36.1 C (96.9 F) SpO2: 95% Weight: 61.7 kg (136 lb) KPS: 100 General Appearance: Alert and oriented. No acute distress. Radiation dermatitis: none Pelvic exam: deferred IMAGING/LAB RESULTS: Hemoglobin (g/dL) Date Value 04/28/2023 10.7 Hematocrit (%) Date Value 04/28/2023 33.1 WBC (k/uL) Date Value 04/28/2023 4.85 Platelet Count (k/uL) Date Value 04/28/2023 234 TOXICITY ASSESSMENT (CTC v4.0): Fatigue: grade 1 - No symptoms Weight loss: grade 0 - No weight loss Nausea: Grade 0 - No Symptoms Diarrhea: grade 1 Urinary frequency: grade 0 - No symptoms Dysuria: grade 0 - No symptoms Radiation Dermatitis: grade 0 - No symptoms Treatment chart checked: Yes Patient treatment site reviewed and verified:Yes Port films reviewed and current:Yes Medications started: None ASSESSMENT/PLAN: Patient is tolerating radiation well. Starting boost today. She will finish this week. Plan to follow-up in 2 to 3 weeks. Del Hudson MD documented in this encounterOhiohealth [facility]10-30-2023 Nurse Note* Brisa Zapata LPN - 05/08/2023 10:59 AM EDT Status: Post-menopausal. documented in this encounterOhiohealth [facility] Center10-24-2023 NoteFost[facility]10-24-2023 History of Present illness Narrative* Osmany Lee LMT - 05/02/2023 2:30 PM EDT Patient Name: Evan Gill : 1955 Referred For: CHAIR MASSAGE Diagnosis: MUSCLE SORENESS Chief Complaint: Relaxation Anxiety (pre): patient declined to answer Pain (pre): patient declined to answer Stress Level (pre): patient declined to answer Therapy Provided: Massage Therapy Area(s) Treated: NECK, SHOULDERS AND BACK Anxiety (post): patient declined to answer Pain (post): patient declined to answer Stress Level (post): patient declined to answer Visit Outcome: Better Comments: MUSCLE TENSION UPPER SHOULDERS, NECK AND LOWER BACK Treatment Plan: PATIENT CAN TOLERATE MED-FIRM PRESS. MYOFASCIAL RELEASE TO NECK AND UPPER SHOULDERS. SCALP MASSAGE Care Team contacted: N/A Signature: Osmany Lee LMT Date: May 02, 2023 Time: 2:30 PM documented in this encounterOhiohealth [facility] Center10-23-2023 Evaluation note* Encounter Date Diagnosis Assessment Notes Treatment Notes Treatment Clinical Notes Apr, Adenocarcinoma of rectum (ICD-10 - C20) Patient is currently following with Dr. Toney through the [facility]. She is currently going through radiation treatment five days a week. Oral chemo therapy was stopped due to negative side effects. Patient appears to be doing well, she does speak in a positive tone and doesnt show signs of distress. Apr, Chest pain (ICD-10 - R07.9) Patient did have a stress test done through the [facility], this was normal. Reports after the oral chemotherapy was stopped the chest pain did resolve. We will continue to monitor. Apr, Hyperlipidemia (ICD-10 - E78.5) Blood work ordered for medicare wellness. [place] Other [id number] NoteFostoria City Hospital10-23-2023 History of Present illness Narrative* Del Hudson MD - 05/01/2023 11:06 AM EDT Radiation Oncology - On Treatment Review (OTR) Note PATIENT NAME: Evan Gill PATIENT DIAGNOSIS: MRI staged T3c,N+M0- Adenocarcinoma of the mid-low rectum COURSE: definitive and concurrent chemotherapy Current dose: 3780 cGy in 21 fx Planned dose: 5040 cGy in 28 fx Status: Patient states there is no possibility she is at this time SUBJECTIVE: Diarrhea improved. Having some increased urinary frequency with dysuria. No hematuria. No fever. PHYSICAL EXAM: 05/01/23 1105 Pulse: 61 Resp: 18 Temp: (!) 35.9 C (96.7 F) SpO2: 95% Weight: 62.1 kg (136 lb 12.8 oz) KPS: 100 General Appearance: Alert and oriented. No acute distress. Radiation dermatitis: none Pelvic exam: deferred IMAGING/LAB RESULTS: Hemoglobin (g/dL) Date Value 04/28/2023 10.7 Hematocrit (%) Date Value 04/28/2023 33.1 WBC (k/uL) Date Value 04/28/2023 4.85 Platelet Count (k/uL) Date Value 04/28/2023 234 TOXICITY ASSESSMENT (CTC v4.0): Fatigue: grade 1 - No symptoms Weight loss: grade 0 - No weight loss Nausea: Grade 0 - No Symptoms Diarrhea: grade 1 Urinary frequency: grade 0 - No symptoms Dysuria: grade 0 - No symptoms Radiation Dermatitis: grade 0 - No symptoms Treatment chart checked: Yes Patient treatment site reviewed and verified:Yes Port films reviewed and current:Yes Medications started: None ASSESSMENT/PLAN: Patient is tolerating radiation well. Having some dysuria UA without obvious infection, culture pending.. Recommend Pyridium. Del Hudson MD documented in this encounterOhiohealth [facility] Center10-20-2023 NoteFostoria City Hospital10-20-2023 History of Present illness Narrative* Darnell Corona MD - 04/28/2023 2:30 PM EDT Images from the original note were not included. PATIENT NAME: Evan Gill CLINIC NO.: [id number] ATTENDING PHYSICIAN: Darnell Corona MD DATE OF SERVICE: April 28, 2023 Some of the elements of this note have been copied from my previous progress note dated 04/14/2023. All the information has been reviewed carefully. Dear Dr. Bazzi here is an update on a follow up visit on female Evan Gill at the clinic 2022 Diagnosis: MRI staged T3c,N+M0- Adenocarcinoma of the mid-low rectum Treatment History: Xeloda and XRT 03/29/2023- Admitted 04/06/2023 with coronary spasms and elevated Troponin- ECHO normal, CTA negative for PE.Xeloda stopped and on radiation only HPI: Evan Gill is a 67 year old year old female here for follow up. She did see cardiology and her SPECT was negative and there was no underlying cardiac disease. She feels well and will complete radiation 05/05/[address] Singer: Rectal mass 4 to 8 cm from the anal verge. - Malignant partially obstructing tumor in the low to mid rectum. - Non-bleeding internal hemorrhoids. - The examination was otherwise normal. - No specimens collected. PAST MEDICAL HISTORY Diagnosis Date Constipation Diverticulosis Malignant melanoma (HCC) Rectal cancer (HCC) Social History Tobacco Use Smoking status: Never Passive exposure: Past Smokeless tobacco: Never Vaping Use Vaping Use: Never used Substance Use Topics Alcohol use: Yes Comment: socially a couple times per month Drug use: Never FAMILY HISTORY Problem Relation Age of Onset Hypertension Mother Lung Cancer Mother Coronary Artery Disease Father Hypertension Father Heart disease Father Hyperlipidemia Father Emphysema Father Past medical, social and family history reviewed without any changes. REVIEW OF SYSTEMS GENERAL: No weight loss, malaise or fevers. No night sweats. HEENT: Negative for headaches, No changes in hearing or vision, no nose bleeds or other nasal problems. RESPIRATORY: Negative for cough, wheezing and shortness of breath CARDIOVASCULAR: Negative for chest pain, leg swelling and palpitations GI: Negative for abdominal discomfort, blood in stools or black stools and change in bowel habits : Negative for dysuria, frequency and incontinence MUSCULOSKELETAL: Negative for joint pain or swelling, back pain, and muscle pain. SKIN: Negative for lesions, rash, and itching. HEMATOLOGY/LYMPHOLOGY Negative for prolonged bleeding, bruising easily, and swollen nodes. NEURO: Negative for numbness or tingling of hands/feet. No weakness. PHYSICAL EXAMINATION: BP 106/49 Pulse 65 Temp (Src) 97.7 (Temporal) Resp 18 Ht 5' 4.016 (1.63m) Wt 137 lb 6.4 oz (62.3kg) SpO2 99% BMI 23.57 kg/(m^2). Wt 61.8 kg (136 lb 3.2 oz) BMI 23.92 kg/m2 Last 3 Encounter Wt Readings: Date: Wt: 03/22/2023 61.8 kg (136 lb 3.2 oz) 03/14/2023 62.6 kg (138 lb) 03/08/2023 62.8 kg (138 lb 6.4 oz) General appearance:ECOG PERFORMANCE STATUS: 1- Restricted in physically strenuous activity. Carries out light duty. Patient in NAD. Skin: Skin color, texture, turgor normal. No rashes or lesions. Eyes: Anicteric sclera. Pupils are equally round and reactive to light. Extraocular movements are intact. Lymph Nodes: No cervical, supraclavicular, axillary or inguinal adenopathy. Oropharynx: Lips, mucosa, and tongue normal. Back: No pain to percussion. Negative SLR test Lungs clear to auscultation, No wheezing or rhonchi Heart: RRR without murmur, gallop, or rubs. Abdomen soft, non-tender. No masses, organomegaly Extremities: No deformities. No edema Neuro: Gait and speech normal. Reflexes normal and symmetric. Muscular strength intact. Sensation grossly intact. Rectal: Deferred : Deferred LABS: Glucose (mg/dL) Date Value 04/28/2023 107 Potassium (mmol/L) Date Value 04/28/2023 4.3 Sodium (mmol/L) Date Value 04/28/2023 140 Chloride (mmol/L) Date Value 04/28/2023 106 CO2 (mmol/L) Date Value 04/28/2023 26 Creatinine (mg/dL) Date Value 04/28/2023 0.68 BUN (mg/dL) Date Value 04/28/2023 19 Anion Gap (mmol/L) Date Value 04/28/2023 8 Calcium, Total (mg/dL) Date Value 04/28/2023 8.6 Protein, Total (g/dL) Date Value 04/28/2023 5.9 Albumin (g/dL) Date Value 04/28/2023 4.1 Bilirubin, Total (mg/dL) Date Value 04/28/2023 0.3 Alkaline Phosphatase (U/L) Date Value 04/28/2023 53 AST (U/L) Date Value 04/28/2023 12 ALT (U/L) Date Value 04/28/2023 11 WBC Date Value Ref Range Status 04/28/2023 4.85 3.70 - 11.00 k/uL Final RBC Date Value Ref Range Status 04/28/2023 3.81 (L) 3.90 - 5.20 m/uL Final Hemoglobin Date Value Ref Range Status 04/28/2023 10.7 (L) 11.5 - 15.5 g/dL Final Hematocrit Date Value Ref Range Status 04/28/2023 33.1 (L) 36.0 - 46.0 % Final MCV Date Value Ref Range Status 04/28/2023 86.9 80.0 - 100.0 fL Final MCH Date Value Ref Range Status 04/28/2023 28.1 26.0 - 34.0 pg Final MCHC Date Value Ref Range Status 04/28/2023 32.3 30.5 - 36.0 g/dL Final RDW-CV Date Value Ref Range Status 04/28/2023 17.1 (H) 11.5 - 15.0 % Final Platelet Count Date Value Ref Range Status 04/28/2023 234 150 - 400 k/uL Final MPV Date Value Ref Range Status 04/28/2023 7.9 (L) 9.0 - 12.7 fL Final Abs Neut Date Value Ref Range Status 04/28/2023 3.16 1.45 - 7.50 k/uL Final Lymphocytes % Date Value Ref Range Status 04/28/2023 15.1 % Final Abs Lymph Date Value Ref Range Status 04/28/2023 0.73 (L) 1.00 - 4.00 k/uL Final Monocytes % Date Value Ref Range Status 04/28/2023 9.9 % Final Abs Mcintosh Date Value Ref Range Status 04/28/2023 0.48 <0.87 k/uL Final Eosinophils % Date Value Ref Range Status 04/28/2023 8.7 % Final Abs Eosin Date Value Ref Range Status 04/28/2023 0.42 <0.46 k/uL Final Basophils % Date Value Ref Range Status 04/28/2023 0.8 % Final Abs Baso Date Value Ref Range Status 04/28/2023 0.04 <0.11 k/uL Final PATH: Colonoscopy 02/2023: Imaging: CT Scan of the Chest and Abdomen and Pelvis 02/2023: MRI rectum 03/2023: 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 Stage: T3c N+ MRF: Involved (tumor margin within 1 mm of MRF Sphincter involvement: No. Suspicious extra mesorectal lymph nodes: Yes EMVI: Yes. Assessment and Plan: Evan Gill is a 67 year old year old female here for follow up. MRI Staged T3c,N+,M0 mid to low rectal cancer. Discussed the rational and toxicity of STACY . She hadstarted Xeloda and radiation 03/29/2023 and presented with what sounds like a coronary spasm, concerning for 5 fu induced. She is off the Xeloda and continues with radiation. Saw cardiology and stresstest was negative. At this time will complete radiation. Repeat MRI in 6 weeks and will consider FOLFOX with close monitoring as part of STACY Echo at [facility] reviewed and was normal. See back in 6 weeks after MRI Thank you for the kind referral. If there are any questions and or concerns please do not hesitate to contact me at [phone]. Darnell Corona MD Hematology/Medical Oncology [facility] Yud[facility] Giordano spent a total of 30 minutes on the date of the service which included preparing to see the patient, [id number] patient care, completing clinical documentation, obtaining and/or reviewing separately obtained history, performing a medically appropriate examination, counseling and educating the pat ient/family/caregiver, and ordering medications, tests, or procedures. CC: documented in this encounterOhiohealth [facility]10-19-2023 [facility]-2023 [facility]10-17-2023 NoteF[facility]10-17-2023 History of Present illness Narrative* Osmany Lee LMT - 04/25/2023 1:46 PM EDT Patient Name: Evan Gill : 1955 Referred For: CHAIR MASSAGE Diagnosis: MUSCLE SORENESS Chief Complaint: Relaxation Anxiety (pre): patient declined to answer Pain (pre): patient declined to answer Stress Level (pre): patient declined to answer Therapy Provided: Massage Therapy Area(s) Treated: NECK AND SHOULDERS Anxiety (post): patient declined to answer Pain (post): patient declined to answer Stress Level (post): patient declined to answer Visit Outcome: Better Comments: FOCUS ON UPPER SHOULDERS AND NECK Treatment Plan: EFFLEURAGE/PET, MYOFASCIAL RELEASE OF THE NECK, UPPER TRAPEZIUS, AND LOWER BACK Care Team contacted: N/A Signature: Osmany Lee LMT Date: April 25, 2023 Time: 1:46 PM documented in this encounterOhiohealth Grant Medical Center10-16-2023 NoteF[facility]10-16-2023 History of Present illness Narrative* Del Hudson MD - 04/24/2023 11:54 AM EDT Radiation Oncology - On Treatment Review (OTR) Note PATIENT NAME: Evan Gill PATIENT DIAGNOSIS: MRI staged T3c,N+M0- Adenocarcinoma of the mid-low rectum COURSE: definitive and concurrent chemotherapy Current dose: 1980 cGy in 11 fx Planned dose: 5040 cGy in 28 fx Status: Patient states there is no possibility she is at this time SUBJECTIVE: Had episode of uncontrolled diarrhea on Monday. Has been taking MiraLAX up until that point. She did take 1 Imodium. Has stopped MiraLAX. No further diarrhea over the weekend. Denies fever. Denies skin change. Is undergoing chemical stress test later in the week. PHYSICAL EXAM: 04/24/23 1133 BP: 122/58 Pulse: 72 Resp: 18 Temp: (!) 35.9 C (96.7 F) SpO2: 99% Weight: 62.1 kg (136 lb 13.6 oz) KPS: 100 General Appearance: Alert and oriented. No acute distress. Radiation dermatitis: none Pelvic exam: deferred IMAGING/LAB RESULTS: Hemoglobin (g/dL) Date Value 04/14/2023 10.7 Hematocrit (%) Date Value 04/14/2023 33.6 WBC (k/uL) Date Value 04/14/2023 4.64 Platelet Count (k/uL) Date Value 04/14/2023 207 TOXICITY ASSESSMENT (CTC v4.0): Fatigue: grade 1 - No symptoms Weight loss: grade 0 - No weight loss Nausea: Grade 0 - No Symptoms Diarrhea: grade 1 Urinary frequency: grade 0 - No symptoms Dysuria: grade 0 - No symptoms Radiation Dermatitis: grade 0 - No symptoms Treatment chart checked: Yes Patient treatment site reviewed and verified:Yes Port films reviewed and current:Yes Medications started: None ASSESSMENT/PLAN: Patient is tolerating radiation well. Discussed diet modification and Imodium use for diarrhea. Del Hudson MD documented in this encounterOhiohealth Grant Medical Center10-10-2023 NoteF[facility]10-09-2023 NoteF[facility]10-06-2023 NoteF[facility]10-06-2023 History of Present illness Narrative* Darnell Corona MD - 04/14/2023 10:19 AM EDT Images from the original note were not included. PATIENT NAME: Evan Gill CLINIC NO.: [id number] ATTENDING PHYSICIAN: Darnell Corona MD DATE OF SERVICE: April 14, 2023 Some of the elements of this note have been copied from my previous progress note dated 04/07/2023. All the information has been reviewed carefully. Dear Dr. Bazzi here is an update on a follow up visit on female Evan Gill at the clinic 2022 Diagnosis: MRI staged T3c,N+M0- Adenocarcinoma of the mid-low rectum Treatment History: Xeloda and XRT 03/29/2023- Admitted 04/06/2023 with coronary spasms and elevated Troponin- ECHO normal, CTA negative for PE.Xeloda stopped and on radiation only HPI: Evan Gill is a 67 year old year old female here for follow up. She is doing well and denies any chest pain and or exertional angina and or RO and BP has been well controlled Sigmoidoscopy by Dr. Singer: Rectal mass 4 to 8 cm from the anal verge. - Malignant partially obstructing tumor in the low to mid rectum. - Non-bleeding internal hemorrhoids. - The examination was otherwise normal. - No specimens collected. PAST MEDICAL HISTORY Diagnosis Date Constipation Diverticulosis Malignant melanoma (HCC) Rectal cancer (HCC) Social History Tobacco Use Smoking status: Never Passive exposure: Past Smokeless tobacco: Never Vaping Use Vaping Use: Never used Substance Use Topics Alcohol use: Yes Comment: 1 drink weekly if that Drug use: Never FAMILY HISTORY Problem Relation Age of Onset Lung Cancer Mother Heart disease Father Past medical, social and family history reviewed without any changes. REVIEW OF SYSTEMS GENERAL: No weight loss, malaise or fevers. No night sweats. HEENT: Negative for headaches, No changes in hearing or vision, no nose bleeds or other nasal problems. RESPIRATORY: Negative for cough, wheezing and shortness of breath CARDIOVASCULAR: Negative for chest pain, leg swelling and palpitations GI: Negative for abdominal discomfort, blood in stools or black stools and change in bowel habits : Negative for dysuria, frequency and incontinence MUSCULOSKELETAL: Negative for joint pain or swelling, back pain, and muscle pain. SKIN: Negative for lesions, rash, and itching. HEMATOLOGY/LYMPHOLOGY Negative for prolonged bleeding, bruising easily, and swollen nodes. NEURO: Negative for numbness or tingling of hands/feet. No weakness. PHYSICAL EXAMINATION: BP 107/48 Pulse 71 Temp (Src) 97.5 (Temporal) Resp 16 Ht 5' 3.268 (1.61m) Wt 138 lb 3.2 oz (62.7kg) SpO2 99% BMI 24.27 kg/(m^2). Wt 61.8 kg (136 lb 3.2 oz) BMI 23.92 kg/m2 Last 3 Encounter Wt Readings: Date: Wt: 03/22/2023 61.8 kg (136 lb 3.2 oz) 03/14/2023 62.6 kg (138 lb) 03/08/2023 62.8 kg (138 lb 6.4 oz) General appearance:ECOG PERFORMANCE STATUS: 1- Restricted in physically strenuous activity. Carries out light duty. Patient in NAD. Skin: Skin color, texture, turgor normal. No rashes or lesions. Eyes: Anicteric sclera. Pupils are equally round and reactive to light. Extraocular movements are intact. Lymph Nodes: No cervical, supraclavicular, axillary or inguinal adenopathy. Oropharynx: Lips, mucosa, and tongue normal. Back: No pain to percussion. Negative SLR test Lungs clear to auscultation, No wheezing or rhonchi Heart: RRR without murmur, gallop, or rubs. Abdomen soft, non-tender. No masses, organomegaly Extremities: No deformities. No edema Neuro: Gait and speech normal. Reflexes normal and symmetric. Muscular strength intact. Sensation grossly intact. Rectal: Deferred : Deferred LABS: No results found for: GLUC , K , NA , CHLOR , CO2 , CREAT , BUN , ANION , CA , TPROT , ALB , TBILI , ALKPHOS , AST , ALT WBC Date Value Ref Range Status 04/14/2023 4.64 3.70 - 11.00 k/uL Final RBC Date Value Ref Range Status 04/14/2023 3.91 3.90 - 5.20 m/uL Final Hemoglobin Date Value Ref Range Status 04/14/2023 10.7 (L) 11.5 - 15.5 g/dL Final Hematocrit Date Value Ref Range Status 04/14/2023 33.6 (L) 36.0 - 46.0 % Final MCV Date Value Ref Range Status 04/14/2023 85.9 80.0 - 100.0 fL Final MCH Date Value Ref Range Status 04/14/2023 27.4 26.0 - 34.0 pg Final MCHC Date Value Ref Range Status 04/14/2023 31.8 30.5 - 36.0 g/dL Final RDW-CV Date Value Ref Range Status 04/14/2023 15.9 (H) 11.5 - 15.0 % Final Platelet Count Date Value Ref Range Status 04/14/2023 207 150 - 400 k/uL Final MPV Date Value Ref Range Status 04/14/2023 8.4 (L) 9.0 - 12.7 fL Final Abs Neut Date Value Ref Range Status 04/14/2023 2.82 1.45 - 7.50 k/uL Final Lymphocytes % Date Value Ref Range Status 04/14/2023 22.8 % Final Abs Lymph Date Value Ref Range Status 04/14/2023 1.06 1.00 - 4.00 k/uL Final Monocytes % Date Value Ref Range Status 04/14/2023 9.1 % Final Abs Mcintosh Date Value Ref Range Status 04/14/2023 0.42 <0.87 k/uL Final Eosinophils % Date Value Ref Range Status 04/14/2023 6.3 % Final Abs Eosin Date Value Ref Range Status 04/14/2023 0.29 <0.46 k/uL Final Basophils % Date Value Ref Range Status 04/14/2023 0.6 % Final Abs Baso Date Value Ref Range Status 04/14/2023 0.03 <0.11 k/uL Final PATH: Colonoscopy 02/2023: Imaging: CT Scan of the Chest and Abdomen and Pelvis 02/2023: MRI rectum 03/2023: 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 Stage: T3c N+ MRF: Involved (tumor margin within 1 mm of MRF Sphincter involvement: No. Suspicious extra mesorectal lymph nodes: Yes EMVI: Yes. Assessment and Plan: Evan Gill is a 67 year old year old female here for follow up. MRI Staged T3c,N+,M0 mid to low rectal cancer. Discussed the rational and toxicity of STACY . She hadstarted Xeloda and radiation 03/29/2023 and presented with what sounds like a coronary spasm, concerning for 5 fu induced. She is off the Xeloda and continues with radiation. Seeing cardiology next week Echo at [facility] reviewed and was normal. 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 If there are any questions and or concerns please do not hesitate to contact me at [phone]. Darnell Corona MD Hematology/Medical Oncology [facility] spent a total of 30 minutes on the date of the service which included preparing to see the patient, [id number] patient care, completing clinical documentation, obtaining and/or reviewing separately obtained history, performing a medically appropriate examination, counseling and educating the pat ient/family/caregiver, and ordering medications, tests, or procedures. CC: documented in this encounterOhiohealth [facility] Center10-03-2023 NoteF[facility]10-02-2023 NoteF[facility]10-02-2023 History of Present illness Narrative* Del Hudson MD - 04/10/2023 1:56 PM EDT Radiation Oncology - On Treatment Review (OTR) Note PATIENT NAME: Evan Gill PATIENT DIAGNOSIS: MRI staged T3c,N+M0- Adenocarcinoma of the mid-low rectum COURSE: definitive and concurrent chemotherapy Current dose: 1080 cGy in 6 fx Planned dose: 5040 cGy in 28 fx Status: Patient states there is no possibility she is at this time SUBJECTIVE: The latter part of last week patient developed acute chest pain with exertion with radicular component to back and left arm. Happened while walking. She is admitted for further work-up and evaluation. Found to have elevated troponin. Her chemotherapy has been stopped. She is feeling much better. Still gets occasional similar pain with walking. Denies any significant pelvic pain. Improved bowel function. PHYSICAL EXAM: 04/10/23 1110 BP: 104/66 Pulse: 71 Resp: 18 Temp: 36.6 C (97.8 F) SpO2: 99% Weight: 63 kg (139 lb) KPS: 100 General Appearance: Alert and oriented. No acute distress. Radiation dermatitis: none Pelvic exam: deferred IMAGING/LAB RESULTS: No results found for: HB , HCT , WBC , PLT TOXICITY ASSESSMENT (CTC v4.0): Fatigue: grade 1 - No symptoms Weight loss: grade 0 - No weight loss Nausea: Grade 0 - No Symptoms Diarrhea: grade 0 - No symptoms Urinary frequency: grade 0 - No symptoms Dysuria: grade 0 - No symptoms Radiation Dermatitis: grade 0 - No symptoms Treatment chart checked: Yes Patient treatment site reviewed and verified:Yes Port films reviewed and current:Yes Medications started: None ASSESSMENT/PLAN: Patient has developed acute cardiac issues, possibly related to 5-FU based chemotherapy. This is on hold. Discussed with Dr. Corona. She is still undergoing cardiac evaluation. Recommend continuing external beam treatment, currentlywithout systemic concurrent chemotherapy. She does have some benefit notable so far from the treatment. Del Hudson MD documented in this encounterOhiohealth Grant Medical Center10-02-2023 Nurse Note* Prachi Gill RN - 04/10/2023 11:12 AM EDT Status: Post-menopausal. Prachi Gill RN documented in this encounterOhiohealth Grant Medical Center09-29-2023 Miscellaneous Notes* Telephone Encounter - Colleen Solorio RN - 04/07/2023 4:11 PM EDT There has been a change in treatment plan and pt will no longer need a port. Damaris notified and she will cancel this. Colleen Solorio RN * Telephone Encounter - Damaris Koehler - 04/06/2023 3:36 PM EDT Patient's port has been scheduled in [place] on 04/11. Patient will need a dedicated driver and nurses will call patient with instructions. Patient takes a baby aspirin daily. This should not be an issue but nurses have been notified and may adjust if need. Damaris Koheler * Telephone Encounter - Kristin Martinez - 04/06/2023 2:52 PM EDT Scheduled 04/07 at 130pm. Called patient, still in hospital, has not been discharged yet, confirmeddate and time. If anything changes with discharge we will fix accordingly. * Telephone Encounter - Linda Guillen RN - 04/06/2023 1:46 PM EDT Clerical: Pt will need to see Dr Corona tomorrow for follow up. Please schedule and call pt w/ appointment. Thanks! Linda Guillen RN * Telephone Encounter - Damaris Koehler - 04/06/2023 1:38 PM EDT Per Venecia, PSS she reports [facility] called to inform they are discharging her today and will not be doing the port or EGD. I spoke w/ [facility] port scheduling with Marleni and she stated they may have a cancellation in [place] on 04/11 but this is still up in the air and she will let me know. If this date will not be available, Iwill call local. Faxed EGD order to Dr. Greene's office. Damaris Koehelr * Telephone Encounter - Colleen Solorio RN - 04/05/2023 4:59 PM EDT KK: please sign orders for EGD. If [facility] is not able to do it we will get it scheduled at [place]. Thanks Colleen Solorio RN * Telephone Encounter - Damaris Koehler - 04/05/2023 4:26 PM EDT I spoke with Shanita at Dr. Greene's office. She states he had to fly out this morning on a family emergency and they are not sure when he will be back. Are you okay with patient just having an EGD done instead of the consult order? If so, can you justplace an EGD order and then they can have it reviewed and try to get patient scheduled KARYN. Patient has been referred for port placement in separate encounter to [facility]. Damaris Koehler * Telephone Encounter - Naheed Elias PA-C - 04/05/2023 4:03 PM EDT Signed Naheed Elias PA-C * Telephone Encounter - Colleen Solorio RN - 04/05/2023 3:[address] Corona would like pt to have port placed KARYN to change her treatment to infusional 5FU with radiation so pt can take her PPI. He would also like GI referral for EGD (pt see's Dr Greene). PSS: please schedule port KARYN and referral to Dr Greene for EGD. DONOVAN: please place orders for 5FU and sign pending orders for port and GI. Thanks Colleen Solorio RN documented in this encounterOhiohealth Grant Medical Center09-29-2023 NoteFostoria City Hospital09-28-2023 Miscellaneous Notes* Telephone Encounter - Rosalina Byers RN - 04/06/2023 3:37 PM EDT You are scheduled for a Port Placement, On 04/11/2023. You are to arrive at 2:00 PM and Report to [facility]: Enter through [address] entrance.Proceed to the 2nd floor Surgical Services Desk for check in. You can expect to be here for 2-4 hours. Diet: Do not eat any solid food after midnight the day of/night before your procedure. You may drink clear liquids until 1:00 PM which means black coffee, apple juice, black tea, or water only. Medications: Ok to take your cardiac, blood pressure, anti-seizure, and chronic pain medications with a sip of water, please take prior to arrival. Bring your current medication list. Special concerns: Do you have any attached medical devices? No Insulin pumps must be removed before entering the procedure room. Do you wear Neulasta Onpro? No. If yes, the device must be removed before entering the procedure room. Do you use CPAP or BPAP? Not applicable . Labs: Lab-work needs to be drawn? Yes, CBC & CMP labs need to be drawn at least one day prior to procedure. Please bring a copy of the results if they are not done at a [facility] facility. . Electroplating Technician/Transportation: How will you be arriving for your procedure? Private car. You will need a responsible adult to accompany you to and from the procedure. If you have any questions, please call [phone] [address] [address] [facility] [place] [address] documented in this encounterOhiohealth Grant Medical Center09-28-2023 Progress note Author Agustin Negron [facility] April 06, 2023 12:42pm Note Date/Time April 06, 2023 12:42pm [facility] [address] [place], [place] [id number] Hospitalist Progress Note Signed Patient: Evan Gill MR#: [id number] : 1955 Acct:[id number] Age/Sex: 67 / F Adm Date: 3 Loc: Room: [address] [place] [address] Type: ADM INOo Attending Dr: Agustin Negron MD Copies to: ~ Date of Service: 04/06/2023 Subjective Subjective Narrative: Chest pain has resolved with no recurrence Exam Physical Exam Vital Signs: Temp Pulse Resp BP Pulse Ox O2 Del Method 97.8 F 66 14 103/68 100 Room Air 04/06/23 08:17 04/06/23 08:17 04/06/23 08:17 04/06/23 08:17 04/06/23 08:17 04/06/23 08:17 Narrative: Physical Examination: GENERAL APPEARANCE: Alert, up in bed AAOx3 HEENT: NCAT, MMM NECK: Neck soft w/o masses, no JVD CARDIAC: Normal S1 and S2. No S3, S4 or murmurs. LUNGS: Clear to auscultation bilaterally. no wheeze/rhonchi/rales ABDOMEN: Positive bowel sounds. Soft, nontender. No guarding or signs of an acute abdomen MUSCULOSKELETAL: No joint erythema or tenderness. EXTREMITIES: No clubbing, cyanosis or edema PSYCHIATRIC: Appropriate mood and affect Objective Lab Results 04/05/23 13:24 04/05/23 13:24 Meds Allergies and Active Meds Allergies No Known Allergies Allergy (Verified 04/05/23 18:12) Active Meds: Active Medications Generic Name Dose Route Start Last Admin Trade Name Freq PRN Reason Stop Dose Admin Amlodipine Besylate 5 mg 04/06/23 09:00 04/06/23 08:44 Amlodipine 5 Mg Tablet PO 04/05/24 08:59 5 mg DAILY YUMIKO Administration Aspirin 81 mg 04/06/23 09:00 04/06/23 08:44 Aspirin 81 Mg Tablet. PO 04/05/24 08:59 81 mg DAILY YUMIKO Administration Calcium Carbonate 1 tab 04/06/23 09:00 04/06/23 08:44 Calcium Carbonate/Vitamin D3 500 Mg/200 Unit Tablet PO 04/05/24 08:59 1 tab DAILY YUMIKO Administration Enoxaparin Sodium 60 mg 04/05/23 18:15 04/06/23 06:16 Enoxaparin 60 Mg/0.6 Ml Syringe SUBCUT 04/04/24 18:14 60 mg Q12H YUMIKO Administration Fish Oil 1,000 mg 04/06/23 09:00 04/06/23 08:44 [place]-3/Fish Oil 1,000 Mg Capsule PO 04/05/24 08:59 1,000 mg DAILY YUMIKO Administration Lact Acid/Bifidobact/Lact [place]/Streptoc Th 1 cap 04/06/23 09:00 04/06/23 08:45 L. Acidophilus/Strept/La P-[place] 1 Cap Capsule PO 04/05/24 08:59 1 cap DAILY YUMIKO Administration Lisinopril 10 mg 04/06/23 09:00 04/06/23 08:44 Lisinopril 10 Mg Tablet PO 04/05/24 08:59 10 mg DAILY YUMIKO Administration Magnesium Oxide 400 mg 04/06/23 09:00 04/06/23 08:44 Magnesium Oxide 400 Mg Tablet PO 04/05/24 08:59 400 mg DAILY YUMIKO Administration Meloxicam 15 mg 04/07/23 09:00 Meloxicam *Nf* 15 Mg Tablet PO 04/06/24 08:59 DAILY [facility] Nitroglycerin 0.4 mg 04/05/23 13:09 04/05/23 13:32 Nitroglycerin 0.4 Mg Tab.Subl SUBLINGUAL 04/04/24 13:08 0.4 mg Q5M PRN Administration Chest Pain Non-Formulary Medication 1 packet 04/06/23 09:00 Testosterone TRANSDERML 04/05/24 08:59 DAILY [facility] Ondansetron HCl 8 mg 04/05/23 16:46 Ondansetron Odt 4 Mg Tab.Rapdis PO Q8H PRN Nausea Oxybutynin Chloride 15 mg 04/06/23 09:00 04/06/23 08:45 Oxybutynin Chloride 5 Mg Tab.Er.24 PO 04/05/24 08:59 15 mg DAILY YUMIKO Administration Polyethylene Glycol 17 gm 04/06/23 09:00 04/06/23 08:45 Polyethylene Glycol 3350 17 Gm Powd.Pack PO 04/05/24 08:59 17 gm DAILY YUMIKO Administration Prochlorperazine Maleate 10 mg 04/05/23 16:46 Prochlorperazine Maleate 5 Mg Tablet PO Q6H PRN Nausea Sodium Chloride 0 ml 04/05/23 13:01 04/05/23 13:25 Sodium Chloride 0.9 % 10 Ml Syringe IV-PUSH 04/04/24 13:00 10 ml PRN PRN Administration Flush Vortioxetine 5 mg 04/06/23 12:00 Vortioxetine 5 Mg Tablet PO 04/05/24 11:59 DAILY YUMIKO A&P - Hospitalist Assessment/Plan (1) Chest pain: (2) Colorectal cancer: Plan Assessment and plan: 1. Chest pain, no evidence of ACS The patient was cleared by cardiology for discharge 2. Hypertension Continue home amlodipine benazepril combination or formulary equivalent. 3. Colon cancer The patient follows with [facility] group, we will consult Hopefully she can be discharged today Documented By: Agustin Negron MD 04/06/230 Signed By: <Electronically signed by Agustin Negron MD> 04/06/23 1242 [facility] Work Phone: 1(798) 729-475509-28-2023 Consult note Author Marcos Rios [facility] April 06, 2023 10:58am Note Date/Time April 06, 2023 10:55am [facility] [address] [place] [address] Cardiology Consult Note Signed Patient: Evan Gill MR#: [id number] : 1955 Acct:[id number] Age/Sex: 67 / F Adm Date: 3 Loc: Room: [address] [place] [address] Type: ADM INOo Attending Dr: Agustin Negron MD Copies to: Charles Bazzi,MD Marcos Parnell MD~ Cardiology HPI History of Present Illness Consult Date: 04/06/23 Reason for Consult: Cardiac consultation requested for evaluation for chest pain HPI: Ms. Gill is a 67 year old female with no prior history of coronary artery disease, congestive heart failure or valvular heart disease presented to hospital complaining of retrosternal chest heaviness. She described episode lasting about 4 to 5 hours. It occurred after she received chemotherapy. She described it as pressure with a sharp component. She felt better when she leaned forward. She came to the emergency room where she was given Zofran, painmedication and nitro patch which resulted in improvement of her symptoms. Pain associated with some nausea. Initial cardiac enzymes and repeat cardiac enzymeswere negative. Initial EKG showed subtle ST segment elevation diffusely and repeat EKG in the morning continue to show subtle ST segment elevation there is EKG changes are suspicious of possible pericarditis. At the time of evaluation the patient denies chest pain. . The patient currently receiving radiation chemotherapy for rectal cancer. She had a previous stress test in the past which was negative. She is low risk for ischemic heart disease based on risk profile. Patient CT scan was negative for PE Review of Systems Review of Systems All other systems reviewed & are negative unless noted below or in HPI Constitutional Constitutional: Reports system reviewed and no additional complaints, except as documented Eyes Eyes: Reports system reviewed and no additional complaints, except as documented ENT Ears, Nose, Mouth, and Throat: Reports system reviewed and no additional complaints, except as documented Cardiovascular Cardiovascular: Reports system reviewed and no additional complaints, except as documented Respiratory Respiratory: Reports system reviewed and no additional complaints, except as documented Gastrointestinal Gastrointestinal: Reports system reviewed and no additional complaints, except as documented Genitourinary Genitourinary: Reports system reviewed and no additional complaints, except as documented Musculoskeletal Musculoskeletal: Reports system reviewed and no additional complaints, except asdocumented Integumentary/Breasts Skin/Breast: Reports system reviewed and no additional complaints, except as documented Neurologic Neurologic: Reports system reviewed and no additional complaints, except as documented Psychiatric Psychiatric: Reports system reviewed and no additional complaints, except as documented Endocrine Endocrine: Reports system reviewed and no additional complaints, except as documented Hematologic/Lymphatic Hematologic/Lymphatic: Reports system reviewed and no additional complaints, except as documented Allergic/Immunologic Allergic/Immunologic: Reports system reviewed and no additional complaints, except as documented [facility] Medical History (Updated 04/06/23 @ 10:56 by Marcos Rios MD) Arthritis Colorectal cancer Depression Hypertension Incontinence Menopause Skin cancer melanoma Surgical History History of carpal tunnel release of both wrists History of cholecystectomy History of melanoma excision History of open reduction and internal fixation (ORIF) procedure right ankle Total knee replacement status Family History Father CAD (coronary artery disease) Arthritis Hypertension Mother Lung cancer Arthritis Hypertension Social History Smoking Status: Never smoker Substance Use Type: None Meds Medications and Allergies Allergies No Known Allergies Allergy (Verified 04/05/23 18:12) Home Medications amlodipine 5 mg-benazepril 10 mg capsule 1 tab PO DAILY htn 11/02/18 [History Confirmed 04/05/23] aspirin 81 mg tablet,delayed release 81 mg PO DAILY health maintenance 11/02/18 [History Confirmed 04/05/23] calcium-vitamin D3-vitamin K 500 mg-1,000 unit-40 mcg chewable tablet (Citracal- D3 Soft Chew) 2 tab PO DAILY bone health 11/02/18 [History Confirmed 04/05/23] omega 3-djg-wcc-fish oil 1,000 mg (120 mg-180 mg) capsule (Fish Oil) 1 cap PO DAILY 11/02/18 [History Confirmed 04/05/23] oxybutynin chloride 15 mg tablet,extended release 24 hr 15 mg PO DAILY 11/02/18 [History Confirmed 04/05/23] lactobacillus comb no.10 20 billion cell capsule (Probiotic) 20,000 mmu cells PODAILY 03/06/23 [History Confirmed 04/05/23] magnesium 500 mg tablet 500 mg PO DAILY 03/06/23 [History Confirmed 04/05/23] meloxicam 15 mg tablet 15 mg PO DAILY 03/06/23 [History Confirmed 04/05/23] potassium 99 mg tablet 99 mg PO DAILY 03/06/23 [History Confirmed 04/05/23] vortioxetine 5 mg tablet (Trintellix) 5 mg PO DAILY 03/06/23 [History Confirmed 04/05/23] capecitabine 500 mg tablet mg 04/05/23 [History Confirmed 04/05/23] cholecalciferol (vit D3) 1,000 unit-vitamin K2 (MK4) 100 mcg tablet (K2 Plus D3)1 tab PO DAILY 04/05/23 [History Confirmed 04/05/23] ondansetron 8 mg disintegrating tablet 8 mg PO Q8H PRN Nausea 04/05/23 [History Confirmed 04/05/23] polyethylene glycol 3350 17 gram oral powder packet (Miralax) 17 g PO DAILY 04/05/23 [History Confirmed 04/05/23] prochlorperazine maleate 10 mg tablet (Compazine) 10 mg PO Q6H PRN Nausea 04/05/23 [History Confirmed 04/05/23] progesterone 50 mg/mL intramuscular oil mg IM 04/05/23 [History] testosterone 1 % (25 mg/2.5 gram) transdermal gel packet 1 packet transdermal DAILY 04/05/23 [History Confirmed 04/05/23] ferrous sulfate 325 mg (65 mg iron) tablet (FeroSul) 325 mg PO DAILY 04/06/23 [History Confirmed 04/06/23] omeprazole 40 mg capsule,delayed release 40 mg PO DAILY 04/06/23 [History Confirmed 04/06/23] Exam Physical Exam Vital Signs: Temp Pulse Resp BP Pulse Ox O2 Del Method 97.8 F 66 14 103/68 100 Room Air 04/06/23 08:17 04/06/23 08:17 04/06/23 08:17 04/06/23 08:17 04/06/23 08:17 04/06/23 08:17 Const General: cooperative, comfortable, no acute distress and well developed HEENT Head: atraumatic Mouth: oral mucosae normal Eyes General: appearance normal, both eyes and all related structures Pupils: PERRL Neck Neck: normal visual inspection, supple and no lymphadenopathy noted Neck mass: No Thyroid: thyroid normal Carotids: normal carotid upstroke Chest Chest palpation & inspection: normal inspection of the chest Resp Effort & Inspection: normal respiratory effort Auscultation: clear to auscultation bilaterally Cardio Palpation: normal PMI Rate: regular rate Rhythm: regular rhythm Heart Sounds: S1 normal and S2 normal GI Palpation: soft and no hepatosplenomegaly Percussion: normal to percussion Auscultation: normal bowel sounds Skin General: no rashes or lesions noted and dry skin Neuro General: patient alert, patient awake, patient oriented x3, tone normal and moves all extremities Extrem General: full ROM, capillary refill normal and no clubbing, cyanosis or edema Psych Mental Status: mental status grossly normal Results Labs 04/05/23 13:24 04/05/23 13:24 Lab results: Cardiac Enzymes 04/05/23 04/05/23 04/05/23 Range/Units 13:24 13:24 13:24 AST 16 (13-39) U/L Total Creatine Kinase 53 (30-223) U/L B-Natriuretic Peptide 158.0 H (5-100) pg/mL 04/05/23 04/06/23 04/06/23 Range/Units 17:01 00:35 08:28 AST (13-39) U/L Total Creatine Kinase 43 39 36 (30-223) U/L B-Natriuretic Peptide (5-100) pg/mL CBC 04/05/23 Range/Units 13:24 RBC 4.28 (3.60-5.00) X10E6/uL Hgb 11.7 L (11.8-15.4) g/dL Hct 35.7 (34.0-46.4) % Plt Count 312 (150-450) x10E3/uL Neut # (Auto) 3.4 (1.8-7.7) x10E3/uL Lymph # (Auto) 2.6 (1.00-4.8) x10E3/uL Mcintosh # (Auto) 0.5 (0.0-0.8) x10E3/uL Eos # (Auto) 0.1 (0.0-0.45) x10E3/uL Baso # (Auto) 0.0 (0.0-0.2) x10E3/uL Comprehensive Metabolic Panel 04/05/23 Range/Units 13:24 Sodium 139 (136-145) mmol/L Potassium 3.5 (3.5-5.1) mmol/L Chloride 102 (98-107) mmol/L Carbon Dioxide 23.1 (21.0-31.0) mmol/L BUN 20 (7-25) mg/dL Creatinine 0.74 (0.60-1.20) mg/dL Glucose 109 H (70-100) mg/dL Calcium 9.4 (8.6-10.3) mg/dL Direct Bilirubin 0.10 (0.03-0.18) mg/dL Indirect Bilirubin 0.4 mg/dL AST 16 (13-39) U/L ALT 18 (7-52) U/L Alkaline Phosphatase 50 (34-104) U/L Total Protein 7.0 (6.4-8.9) gm/dL Albumin 4.5 (3.5-5.7) gm/dL Intake and Output 04/05/23 04/06/23 04/06/23 23:59 07:59 15:59 Intake Total 200 / 1200 300 / 300 Balance 200 / 1200 300 / 300 Intake: Oral 200 / 200 300 / 300 Other: # Voids 2 # Unmeasured Voids 3 3 Weight 62 kg 60 kg Date of Last Bowel Movement 04/05/23 04/05/23 Patient Weight 04/06/23 23:59 Weight 60 kg Lab 04/05/23 13:24 PT 11.9 INR 1.0 APTT 27.9 EKG Interpretations EKG Attestation EKG: I reviewed this ECG and interpreted as documented below: (Normal sinus rhythm there is slight left segment elevation diffusely on presentation which appears different than her previous EKG) A&P - Cardiology (1) Colorectal cancer: Code(s): 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 Chest pain lasted more than 4 hours with negative cardiac enzymes. EKG changes suspicious of possible pericarditis. Patient is low risk for ischemic heart disease. She is currently chest pain-free 2. History of colorectal cancer receiving radiation and chemotherapy with localmets 3. No prior history of coronary artery disease, congestive heart failure or valvular heart disease Plan 1. We will continue with observation 2. No need for invasive evaluation 3. We will check echocardiogram 4. Ambulate the patient if no further chest pain the patient can be discharged hopefully later in the afternoon. I did advise the patient if she had any recurrence to come back to the hospital. We will consider repeat stress test onoutpatient basis. Documented By: Marcos Rios MD 04/06/23 1052 Signed By: <Electronically signed by MD Marcos Rios> 04/06/23 1058 [facility] Work Phone: 1([phone]) 679-877809-28-2023 Miscellaneous Notes* Telephone Encounter - Linda Guillen RN - 04/06/2023 12:43 PM EDT Images from the original note were not included. Darnell Corona MD You 6 minutes ago (12:36 PM) Thanks. * Telephone Encounter - Linda Guillen RN - 04/06/2023 11:58 AM EDT Consult received. Dr Corona recommends pt be discharged and f/u next day in clinic. Spoke w/ KAYA Lingcharge poster. Notified him of the above. States there is no plans for discharge at thistime. Also states that it is doubtful the port will be placed today either. Dr Corona notified. States that he will see the pt tomorrow if still admitted. Otherwise he will see her in the office. KAYA Ling, notified of the above. Requested they call and notify our office if pt discharged today. Sushil verbalizes understanding and agrees. Linda Guillen RN * Telephone Encounter - Linda Guillen RN - 04/06/2023 10:42 AM EDT 's request for EGD phoned to KAYA Lingcharge poster on 3T. He will inform the hospitalist. Linda Guillen RN * Telephone Encounter - Darnell Corona MD - 04/06/2023 8:56 AM EDT Can she get an EGD while inpatient? * [facility]06/[facility] 8:05 AM EDT Records scanned. * Telephone Encounter - Colleen Solorio RN - 04/06/2023 7:46 AM EDT Spoke with Laisha this morning who states cardiology has been consulted and pt will be having an echo today. Pt is getting IV protonix. Requested vascular consult for port placement while admitted. Laisha states she will place orders. Colleen Solorio RN * Telephone Encounter - Colleen Solorio RN - 04/05/2023 4:51 PM EDT Pt being referred for port placement to continue concurrent therapy with 5FU instead of Xeloda so pt will be able to take PPI. Pt also being scheduled for EGD. Pt has been admitted to [facility] for further cardiac workup. Will keep getting updates daily from nursing staff there. Colleen Solorio RN * Telephone Encounter - Colleen Solorio RN - 04/05/2023 3:02 PM EDT Call received from pt's DIL stating pt did have good relief of chest pain from second nitro. Pt's CTA is negative, troponin levels are negative, BNP slightly elevated. Discussed with Dr Corona who would like pt to skip Xeloda dose tonight and resume it in the morning, and pt will need EGD done. Pt's GI physician is Dr Greene. DONOVAN: Pt is very scared to take Xeloda again since it caused her pain like she's never experienced before. Pt doesn't even remember getting to the ER today because the pain was so severe. Shira: can you get records please? Please advise Colleen Solorio RN * Telephone Encounter - Colleen Solorio RN - 04/05/2023 1:00 PM EDT Call received from pt's daughter stating they are on their way here for an appointment and pt is having chest pain that radiates to her back and down both her arms. Disposition: per recommendations, patient directed to: Emergency Room due to the issue being urgent. Pt will go to [facility]. Report called to ER and recent progress notes faxed as well. Colleen Solorio RN documented in this [facility] History and physical note Author Jordan Hare [facility] April 05, 2023 8:54pm Note Date/Time April 05, 2023 8:54pm [facility] [address] [place] [address] Hospitalist H&P Signed Patient: Evan Gill MR#: [id number] : 1955 Acct:[id number] Age/Sex: 67 / F Adm Date: 3 Loc: Room: [address] [place] [address] Type: ADM INOo Attending Dr: Jordan Hare DO Copies to: DO Jordan Carrillo DO~ HPI DATE OF EXAMINATION: 04/05/23 CHIEF COMPLAINT: Chest pain HISTORY OF PRESENT ILLNESS: This patient is a 67-year-old female presented to the emergency department this evening with a chief complaint of chest pain. She states this has been going onintermittently since Monday however this worsened in severity last night late into the evening. States she slept for couple of hours and then got up this morning with worsening again. Describes it as a sharp 10 out of 10 pain that radiated through the left side of her chest and down her left arm. Patient is currently receiving chemotherapy and radiation for rectal cancer that she sees Dr. Houser at [facility] oncology. Recently has switched her PPI and Pepcid dosing due toconcern of possible spasms of the esophagus. She states this pain she experienced today is much more severe. Her vitals were all stable on arrival tot ER with only borderline hypertension 147/74. CT angiography of the chest was performed and negative for PE. Initial high-sensitivity troponin was 6.1 however repeat out of normal range elevated at 18.5. Brain natretic peptide level elevated 158. She was provided transdermal nitroglycerin in the ER and states this provided significant relief of her pain. She is admitted under observation for further evaluation of chest pain. 324 mg of aspirin was provided. After second troponin returned decision was made to initiate therapeutic anticoagulation with Lovenox. Physical Examination: GENERAL APPEARANCE: Alert, up in bed AAOx3 HEENT: NCAT, MMM NECK: Neck soft w/o masses, no JVD CARDIAC: Normal S1 and S2. No S3, S4 or murmurs. LUNGS: Clear to auscultation bilaterally. no wheeze/rhonchi/rales ABDOMEN: Positive bowel sounds. Soft, nontender. No guarding or signs of an acute abdomen MUSCULOSKELETAL: No joint erythema or tenderness. EXTREMITIES: No clubbing, cyanosis or edema PSYCHIATRIC: Appropriate mood and affect Assessment and plan: 1. Chest pain rule out ACS Given the character of her chest pain and severity, relief with nitroglycerin wewill treat this as an NSTEMI. Received aspirin, therapeutic Lovenox 1 mg/kg twice daily initiated. In case this is a GI symptomatology will add 40 IV twicedaily of Protonix. Echocardiogram and cardiology consultation. 2. Hypertension Continue home amlodipine benazepril combination or formulary equivalent. Review of Systems Review of Systems All other systems reviewed & are negative unless noted below or in HPI [facility] Medical History (Updated 04/05/23 @ 18:11 by Michael Lares RN) Arthritis Colorectal cancer Depression Hypertension Incontinence Menopause Skin cancer melanoma Surgical History (Updated 04/05/23 @ 18:11 by Michael Lares RN) History of carpal tunnel release of both wrists History of cholecystectomy History of melanoma excision History of open reduction and internal fixation (ORIF) procedure right ankle Total knee replacement status Family History Father CAD (coronary artery disease) Arthritis Hypertension Mother Lung cancer Arthritis Hypertension Social History Smoking Status: Never smoker Substance Use Type: None Meds Medications and Allergies Allergies No Known Allergies Allergy (Verified 04/05/23 18:12) Home Medications amlodipine 5 mg-benazepril 10 mg capsule 1 tab PO DAILY htn 11/02/18 [History Confirmed 04/05/23] aspirin 81 mg tablet,delayed release 81 mg PO DAILY health maintenance 11/02/18 [History Confirmed 04/05/23] calcium-vitamin D3-vitamin K 500 mg-1,000 unit-40 mcg chewable tablet (Citracal- D3 Soft Chew) 2 tab PO DAILY bone health 11/02/18 [History Confirmed 04/05/23] omega 8-dev-xnm-fish oil 1,000 mg (120 mg-180 mg) capsule (Fish Oil) 1 cap PO DAILY 11/02/18 [History Confirmed 04/05/23] oxybutynin chloride 15 mg tablet,extended release 24 hr 15 mg PO DAILY 11/02/18 [History Confirmed 04/05/23] lactobacillus comb no.10 20 billion cell capsule (Probiotic) 20,000 mmu cells PODAILY 03/06/23 [History Confirmed 04/05/23] magnesium 500 mg tablet 500 mg PO DAILY 03/06/23 [History Confirmed 04/05/23] meloxicam 15 mg tablet 15 mg PO DAILY 03/06/23 [History Confirmed 04/05/23] potassium 99 mg tablet 99 mg PO DAILY 03/06/23 [History Confirmed 04/05/23] vortioxetine 5 mg tablet (Trintellix) 5 mg PO DAILY 03/06/23 [History Confirmed 04/05/23] capecitabine 500 mg tablet mg 04/05/23 [History Confirmed 04/05/23] cholecalciferol (vit D3) 1,000 unit-vitamin K2 (MK4) 100 mcg tablet (K2 Plus D3)1 tab PO DAILY 04/05/23 [History Confirmed 04/05/23] ondansetron 8 mg disintegrating tablet 8 mg PO Q8H PRN Nausea 04/05/23 [History Confirmed 04/05/23] polyethylene glycol 3350 17 gram oral powder packet (Miralax) 17 g PO DAILY 04/05/23 [History Confirmed 04/05/23] prochlorperazine maleate 10 mg tablet (Compazine) 10 mg PO Q6H PRN Nausea 04/05/23 [History Confirmed 04/05/23] progesterone 50 mg/mL intramuscular oil mg IM 04/05/23 [History] testosterone 1 % (25 mg/2.5 gram) transdermal gel packet 1 packet transdermal DAILY 04/05/23 [History Confirmed 04/05/23] Exam Physical Exam Vital Signs: Temp Pulse Resp BP Pulse Ox O2 Del Method 97.5 F L 70 16 91/55 L 98 Room Air 04/05/23 20:02 04/05/23 20:02 04/05/23 20:02 04/05/23 20:02 04/05/23 20:02 04/05/23 20:02 Results Lab Results Labs: Laboratory Last Values Corrected WBC 6.6 X10E3/uL (3.8-11.6) 04/05/23 13:24 Uncorrected WBC Count 6.6 x10E3/uL (3.8-11.6) 04/05/23 13:24 RBC 4.28 X10E6/uL (3.60-5.00) 04/05/23 13:24 Hgb 11.7 g/dL (11.8-15.4) L 04/05/23 13:24 Hct 35.7 % (34.0-46.4) 04/05/23 13:24 MCV 83.4 fl (80-100) 04/05/23 13:24 MCH 27.2 pg (24.7-34.3) 04/05/23 13:24 MCHC 32.7 g/dL (32.0-35.0) 04/05/23 13:24 RDW 15.0 % (11.9-15.3) 04/05/23 13:24 Plt Count 312 x10E3/uL (150-450) 04/05/23 13:24 MPV 6.6 fl (6.3-10.7) 04/05/23 13:24 Neut % (Auto) 51.9 % (.) 04/05/23 13:24 Lymph % (Auto) 38.8 % (.) 04/05/23 13:24 Mcintosh % (Auto) 7.5 % (.) 04/05/23 13:24 Eos % (Auto) 1.1 % (.) 04/05/23 13:24 Baso % (Auto) 0.7 % (.) 04/05/23 13:24 Nucleat RBC Rel Count 0.1 /100 WBC (0-0.5) 04/05/23 13:24 Neut # (Auto) 3.4 x10E3/uL (1.8-7.7) 04/05/23 13:24 Lymph # (Auto) 2.6 x10E3/uL (1.00-4.8) 04/05/23 13:24 Mcintosh # (Auto) 0.5 x10E3/uL (0.0-0.8) 04/05/23 13:24 Eos # (Auto) 0.1 x10E3/uL (0.0-0.45) 04/05/23 13:24 Baso # (Auto) 0.0 x10E3/uL (0.0-0.2) 04/05/23 13:24 Monocyte Dist Width 19.16 % (0.00-20.00) 04/05/23 13:24 PT 11.9 Seconds (9.0-12.9) 04/05/23 13:24 INR 1.0 04/05/23 13:24 APTT 27.9 Seconds (25.1-36.5) 04/05/23 13:24 PHA Creatinine Clear 54.90 04/05/23 13:24 Sodium 139 mmol/L (136-145) 04/05/23 13:24 Potassium 3.5 mmol/L (3.5-5.1) 04/05/23 13:24 Chloride 102 mmol/L (98-107) 04/05/23 13:24 Carbon Dioxide 23.1 mmol/L (21.0-31.0) 04/05/23 13:24 Anion Gap 17.4 mEq/L (6.0-15.0) H 04/05/23 13:24 BUN 20 mg/dL (7-25) 04/05/23 13:24 Creatinine 0.74 mg/dL (0.60-1.20) 04/05/23 13:24 Est GFR (CKD-EPI) > 60.0 mL/Min 04/05/23 13:24 Glucose 109 mg/dL (70-100) H 04/05/23 13:24 Calcium 9.4 mg/dL (8.6-10.3) 04/05/23 13:24 Total Bilirubin 0.5 mg/dl (0.3-1.0) 04/05/23 13:24 Direct Bilirubin 0.10 mg/dL (0.03-0.18) 04/05/23 13:24 Indirect Bilirubin 0.4 mg/dL 04/05/23 13:24 AST 16 U/L (13-39) 04/05/23 13:24 ALT 18 U/L (7-52) 04/05/23 13:24 Alkaline Phosphatase 50 U/L (34-104) 04/05/23 13:24 Total Creatine Kinase 43 U/L (30-223) 04/05/23 17:01 Troponin I High Sens 18.5 pg/mL (0.0-15.0) H 04/05/23 17:01 B-Natriuretic Peptide 158.0 pg/mL (5-100) H 04/05/23 13:24 Total Protein 7.0 gm/dL (6.4-8.9) 04/05/23 13:24 Albumin 4.5 gm/dL (3.5-5.7) 04/05/23 13:24 Globulin 2.5 gm/dL 04/05/23 13:24 Albumin/Globulin Ratio 1.8 04/05/23 13:24 Lipase 13.0 U/L (11.0-82.0) 04/05/23 13:24 Assessment & Plan IP vs OBS Justification Based on differential dx, clinical care plan, and risk of adverse events, if untreated, in my clinical judgement this patient requires an acute care setting as: OBSERVATION because of an expectation of an under 2 midnight stay. Estimated length of stay (# of days): 2 Documented By: Jordan Hare DO 04/05/23 20 47 Signed By: <Electronically signed by Jordan Hare DO> 04/05/232053 [facility] Work Phone: 1(777) [phone] NoteFostoria City [facility]09-25-2023 Miscellaneous Notes* Telephone Encounter - Colleen Solorio RN - 04/03/2023 3:46 PM EDT ORAL ANTI-CANCER AGENTS FOLLOW-UP PHONE CALL/VISIT Patient identified by name and date of . YES Patient is on cycle 1, week 1, day 4 of Capecitabine (Xeloda) for Colon / Rectal Cancer. SYMPTOM ASSESSMENT Headache: No Visual Changes: No Dizziness: No Do you have any periods of confusion? No Mood changes: No Mouth or throat pain: No Appetite: no changes in appetite, appetite fair Taste changes: No Nausea: No Vomiting: Yes - pt states Monday night she had vomiting that stopped at 11 Monday morning. Pt states she didn't have nausea leading up to this, and it came on quickly. Denies any episodes of vomiting since. Pt does take zofran every morning. Episodes of palpitations/chest discomfort/pressure/pain No Shortness of breath: No Cough: No Diarrhea: no Constipation: no and continues to use miralax daily as prior to treatment starting Bladder/Urinary Changes: None Pain: No=0 (pain 0 on a scale of 0-10). Fever: No Chills: No Numbness/weakness: No Edema: No Skin changes: denies HFS Itching: No Yellowing of skin or eyes: No Musculoskeletal/joint changes/issues No Bleeding issues: No Activity Level (0-100%): normal for the most part. Pt states maybe a little fatigue but may be due to the weather being so gloomy outside Do you need to take naps? No Does the patient need interventions or same day appointment:No ADDITIONAL FOLLOW UP: The next outreach call is due on: as needed and was scheduled as needed The following lab tests are due: CMP, CBC Verified patient is aware of next appointment in the cancer center: Yes. Verified patient verbalized how to correctly refill the oral agent prescription. Yes Does the patient have any financial difficulties affording this medication? No Patient verbalizes understanding of when to seek Medical Attention? YES Patient verbalizes understanding of after-hours and weekend phone number? YES Patient verbalized importance of medication compliance in taking the oral agent as prescribed. Patient instructed to call if unable to comply. Colleen Solorio RN documented in this encounterOhio[facility]-2023 Nurse Note* Prachi Gill RN - 04/03/2023 12:02 PM EDT Status: Post-menopausal. Prachi Gill RN documented in this encounterOhio[facility]09-25-2023 NoteFostoria City [facility]09-25-2023 History of Present illness Narrative* Del Hudson MD - 04/03/2023 11:52 AM EDT Radiation Oncology - On Treatment Review (OTR) Note PATIENT NAME: Evan Gill PATIENT DIAGNOSIS: MRI staged T3c,N+M0- Adenocarcinoma of the mid-low rectum COURSE: definitive and concurrent chemotherapy Current dose: 720 cGy in 4fx Planned dose: 5040 cGy in 28 fx Status: Patient states there is no possibility she is at this time SUBJECTIVE: Doing well. Had some nausea/minimal vomiting Monday. Doing better since that time. Has noticed increased caliber stools. Continue mucousy discharge with some blood although improved. PHYSICAL EXAM: 04/03/23 1200 BP: 130/67 Pulse: 63 Resp: 18 Temp: (!) 35.9 C (96.7 F) SpO2: 97% Weight: 62.6 kg (138 lb) KPS: 100 General Appearance: Alert and oriented. No acute distress. Radiation dermatitis: none Pelvic exam: deferred IMAGING/LAB RESULTS: No results found for: HB , HCT , WBC , PLT TOXICITY ASSESSMENT (CTC v4.0): Fatigue: grade 0 - No symptoms Weight loss: grade 0 - No weight loss Nausea: Grade 0 - No Symptoms Diarrhea: grade 0 - No symptoms Urinary frequency: grade 0 - No symptoms Dysuria: grade 0 - No symptoms Radiation Dermatitis: grade 0 - No symptoms Treatment chart checked: Yes Patient treatment site reviewed and verified:Yes Port films reviewed and current:Yes Medications started: None ASSESSMENT/PLAN: Overall doing well. Films reviewed. Continue treatment as previously outlined. Del Hudson MD documented in this encounterOhio[facility]09-20-2023 [facility]-14-2023 NoteFost[facility] City Hospital09-13-2023 Nurse Note* Prachi Gill RN - 03/22/2023 3:42 PM EDT Radiation Therapy - Patient Education Note PATIENT NAME: Evan Gill PATIENT March 22, 2023 [facility] FACILITY/LOCATION: [facility] READINESS TO LEARN Cognitive Ability: Alert and oriented Motivation to learn: Interested Family Support: High - Very involved in pt care Instruction provide to: Patient Patient learns best by: Written Instruction - Hand-outs Factors effecting learning: None Physical limitations effecting learning: None LEARNING RESPONSE Diagnosis: Pt simulated today for radiation therapy to pelvis. Education Topic/Teaching Points: Radiation therapy, Side effects, and OTV: Method of instruction: Written instruction - handouts Patient /Family response: Patient verbalized understanding of radiation treatments, side effects, OTV, and transportation. Follow-up plan: Recommend - Recommend continued instruction and follow up as directed Supplemental material: Informational handouts on Diarrhea and Pelvic handout. Referral (recommendation): None, Pt denied need for social work, van service, and systems development consultant. Pt haschosen to refuse systems development consultant eval at this time. Signed by: Prachi Gill RN documented in this encounterOhiohealth Grant Medical Center09-13-2023 NoteFostoria City Hospital09-13-2023 History of Present illness Narrative* Darnell Corona MD - 03/22/2023 2:42 PM EDT Images from the original note were not included. PATIENT NAME: Evan Gill CLINIC NO.: [id number] ATTENDING PHYSICIAN: Darnell Corona MD DATE OF SERVICE: March 22, [address] Bazzi here is an update on a follow up visit on female Evan Gill at the clinic 03/22/2023 Diagnosis: MRI staged T3c,N+M0- Adenocarcinoma of the mid-low rectum Treatment History: HPI: Evan Gill is a 67 year old year old female here for follow up. She is doing well and getting ready to start therapy next week. Sigmoidoscopy by Dr. Singer: Rectal mass 4 to 8 cm from the anal verge. - Malignant partially obstructing tumor in the low to mid rectum. - Non-bleeding internal hemorrhoids. - The examination was otherwise normal. - No specimens collected. PAST MEDICAL HISTORY Diagnosis Date Constipation Diverticulosis Malignant melanoma (HCC) Rectal cancer (HCC) Social History Tobacco Use Smoking status: Never Passive exposure: Past Smokeless tobacco: Never Substance Use Topics Alcohol use: Yes Comment: 1 drink weekly if that Drug use: Never FAMILY HISTORY Problem Relation Age of Onset Lung Cancer Mother Heart disease Father Past medical, social and family history reviewed without any changes. REVIEW OF SYSTEMS GENERAL: No weight loss, malaise or fevers. No night sweats. HEENT: Negative for headaches, No changes in hearing or vision, no nose bleeds or other nasal problems. RESPIRATORY: Negative for cough, wheezing and shortness of breath CARDIOVASCULAR: Negative for chest pain, leg swelling and palpitations GI: Negative for abdominal discomfort, blood in stools or black stools and change in bowel habits : Negative for dysuria, frequency and incontinence MUSCULOSKELETAL: Negative for joint pain or swelling, back pain, and muscle pain. SKIN: Negative for lesions, rash, and itching. HEMATOLOGY/LYMPHOLOGY Negative for prolonged bleeding, bruising easily, and swollen nodes. NEURO: Negative for numbness or tingling of hands/feet. No weakness. PHYSICAL EXAMINATION: BP 126/67 Pulse 65 Temp (Src) 97.8 (Skin) Resp 16 Ht 5' 3.268 (1.61m) Wt 136 lb 3.2 oz (61.8kg) SpO2 99% BMI 23.92 kg/(m^2). Wt 61.8 kg (136 lb 3.2 oz) BMI 23.92 kg/m2 Last 3 Encounter Wt Readings: Date: Wt: 03/22/2023 61.8 kg (136 lb 3.2 oz) 03/14/2023 62.6 kg (138 lb) 03/08/2023 62.8 kg (138 lb 6.4 oz) General appearance:ECOG PERFORMANCE STATUS: 1- Restricted in physically strenuous activity. Carries out light duty. Patient in NAD. Skin: Skin color, texture, turgor normal. No rashes or lesions. Eyes: Anicteric sclera. Pupils are equally round and reactive to light. Extraocular movements are intact. Lymph Nodes: No cervical, supraclavicular, axillary or inguinal adenopathy. Oropharynx: Lips, mucosa, and tongue normal. Back: No pain to percussion. Negative SLR test Lungs clear to auscultation, No wheezing or rhonchi Heart: RRR without murmur, gallop, or rubs. Abdomen soft, non-tender. No masses, organomegaly Extremities: No deformities. No edema Neuro: Gait and speech normal. Reflexes normal and symmetric. Muscular strength intact. Sensation grossly intact. Rectal: Deferred : Deferred LABS: No results found for: GLUC , K , NA , CHLOR , CO2 , CREAT , BUN , ANION , CA , TPROT , ALB , TBILI , ALKPHOS , AST , ALT No results found for: WBC , RBC , HB , HCT , MCV , MCH , MCHC , RDWCV , PLT , MPV , NEUT , ABSNEUT , LYMPHP , ABSLYMPH , MONOP , ABSMONO , EOSINP , ABSEOSIN , BASOP , ABSBASO PATH: Colonoscopy 02/2023: Imaging: CT Scan of the Chest and Abdomen and Pelvis 02/2023: MRI rectum 03/2023: 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 Stage: T3c N+ MRF: Involved (tumor margin within 1 mm of MRF Sphincter involvement: No. Suspicious extra mesorectal lymph nodes: Yes EMVI: Yes. Assessment and Plan: Evan Gill is a 67 year old year old female here for follow up. MRI Staged T3c,N+,M0 mid to low rectal cancer. Discussed the rational and toxicity of STACY and plan to start therapy next week. Discussed the toxicity of the Xeloda and radiation and the supportive measures as well. Thank you for the kind referral. If there are any questions and or concerns please do not hesitate to contact me at [phone]. Darnell Corona MD Hematology/Medical Oncology [facility] Pasquale spent a total of 30 minutes on the date of the service which included preparing to see the patient, [id number] patient care, completing clinical documentation, obtaining and/or reviewing separately obtained history, performing a medically appropriate examination, counseling and educating the pat ient/family/caregiver, and ordering medications, tests, or procedures. CC: documented in this encounterOhiohealth Grant Medical Center09-13-2023 NoteFostoria City Hospital09-13-2023 History of Present illness Narrative* Colleen Solorio RN - 03/22/2023 2:32 PM EDT ORAL ANTI-CANCER AGENTS EDUCATION patient here today for oral medication education of Xeloda for Colon / Rectal Cancer READINESS TO LEARN Cognitive Ability: Alert and oriented Motivation to Learn: Interested Family Support: High - Very involved in pt care Instruction Provided to: Patient and Family member Patient learns best by: Multiple Methods Factors affecting learning: None Physical limitation affecting learning: None GUZMAN ASSESSMENT: 1.) Verified that patient knows that the oral agents are for cancer and are taken by mouth. Yes 2.) Medication review completed during visit. Yes 3.) Patient is able to swallow pills. Yes 4.) Patient is able to read the drug label/information. Yes 5.) Patient is able to open the medication bottles and packages. Yes 6.) Has patient taken other pills for cancer? No 7.) Is patient experiencing any symptoms that would affect their ability to keep down pills, for example nausea or vomiting? No 8.) Verified that patient understands prescription delivery, benefit investigation and refill process. Yes Pt has picked up medication from [facility] pharmacy DRUG-SPECIFIC EDUCATION: 1.) Verified patient knows the drug name. Yes 2.) Verified patient understands the dose and schedule of oral anti cancer agent. Yes 3 pills BID M-F with radiation 3.) Verified patient knows what to do if a medication dose is missed. Yes 4.) Verified patient understands where to store the drug. Yes 5.) Verified patient understands potential side effects and how to manage them. Yes 6.)Verified patient understands handling precautions of oral anti cancer agent. Yes 7.) Verified patient was given written instructions and understands when and whom to call with questions. Yes 8.) Verified patient understands where and how to return drug. Yes 9.) Verified patient received drug specific adult education handout and neutropenic wallet card Yes EVALUATE: The patient and family member demonstrated an understanding of all the above education using the teach-back method. Yes Instructed to call us with any questions, concerns, and/or unresolved symptoms. Will continue to follow up and provide reinforcement of teaching topics as needed. Colleen Solorio, RN Vice President Tax Pre Chemo Patient identified by name and date of . YES Confirmed date and time for chemotherapy ? YES Other appointments (labs, imaging) discussed? YES Discussed where to park (lead customer service representative), charge for parking NO Discussed where to report (building/floor) NO Any pre-medications ordered? YES Described the infusion room and what to expect. (What to wear, what to bring [iPad, books] amount of time treatment can take, meals and CC options for food) NO Note: pt will not be getting IV infusions at this time, just oral chemotherapy. Did explain to pt that IV fluids are an option if she feels dehydrated at any time. Discussed whether the patient can eat prior to labs and treatment. YES Who is driving you to and from treatment? self Discussed why it is important to bring someone with you. No Resources discussed (music therapy, Art therapy, pet therapy, etc.) YES Education on chemotherapy (drug, side effects) discussed and that the patient will be receiving a C1D1 call within 7 days of treatment. YES Other topics discussed, interventions needed: radiation vaguely discussed with pt as well as medications. Colleen Soloiro RN documented in this encounterOhiohealth Grant Medical Center09-13-2023 History of Present illness Narrative* Del Hudson MD - 03/22/2023 12:00 AM EDT EVAN GILL [id number] 03/22/2023 [facility] Department of Radiation Oncology Treatment Planning Note For reasons stated in the consult note, Evan Gill is a candidate for radiation therapy. Based onreview and interpretation of the relevant diagnostic studies together with the exam findings, Evan Gill was simulated on 03/22/2023 at which time the target volume and/or requisite armijo were delineated, as indicated in the simulation note, to be treated according to the prescription. The treatment target and organs at risk were contoured on the simulation scan using the fused MRI and PET /. Special consideration to these and other structures was given in light of the potential for increased toxicities of combined chemoradiation. After reviewing multiple treatment plans with dosi metry, the best plan was approved to deliver the prescribed course of radiation to the target area using inverse planning to allow for the best isodose distribution, treating to the 98.2% isodose line with 10MV and 3 armijo. Custom MLC asym jaws for IMRT were the treatment devices used to shape/modify the beams. Limiting dose to normal tissue was confirmed upon review of the calculated dose volume histogram. IMRT planning was used because it best met the dose/volume constraints for the organs at risk for this patient, better than what could be achieved using conventional or 3D planning. The specific doserequirements for the PTV, organs at risk and dose-volume histograms are contained in this treatmentplan and/or elsewhere in the medical record. A completed summary of this plan dated 03/28/23 incorporated herein by reference includes dose, beamarrangements, energy, blocking, isodose distribution, and/or ports and DVH. Electronically Signed Shan Hudson M.D. 1:12 AM documented in this encounterOhiohealth Grant Medical Center09-13-2023 NoteFostoria City Hospital09-13-2023 NoteFostoria City Hospital09-12-2023 Miscellaneous Notes * Telephone Encounter - Colleen Solorio RN - 03/21/2023 2:30 PM EDT Please sign pending antiemetics. Thanks Colleen Solorio RN * Telephone Encounter - Darnell Corona MD - 03/21/2023 2:06 PM EDT RX sent and the instruction is M-F during radiation and she needs to stop her PPI * Telephone Encounter - Colleen Solorio RN - 03/21/2023 1:35 PM EDT Message received from radiation nurse stating Dr Hudson is planning on starting radiation on 03/29.Please place orders for Xeloda so our pharmacy can work on filling this if that's the plan. Thanks Colleen Solorio, RN documented in this encounterOhiohealth Grant Medical Center09-07-2023 History and physical note * Laisha Singer MD - 03/16/2023 12:30 PM EDT UPDATED HISTORY AND PHYSICAL EXAMINATION SERVICE DATE: 03/16/2023 SERVICE TIME: 12:45 PM PHYSICAL EXAM MUST BE COMPLETED ON ADMISSION The History and Physical (completed in the past 30 days) has been reviewed and the patient has beenexamined. The contents accurately reflect the patient's condition with the following additions or revisions since the H&P was completed. CV: RRR Pulm: no increased respiratory effort Examination indicates no changes. This H&P can be found in the Electronic Medical Record dated today. SIGNATURE: Laisha Singer MD PATIENT NAME: Evan Gill DATE: March 16, 2023 TIME: 12:45 PM documented in this encounterOhiohealth Grant Medical Center09-05-2023 [facility]08-30-2023 History of Present illness Narrative* Del Hudson MD - 03/08/2023 2:00 PM EDT Radiation Oncology - New Patient/Consult Note PATIENT NAME: Evan Gill PATIENT REQUESTING PROVIDER: Dr. Corona DIAGNOSIS: 67 year old female with recent diagnosis of adenocarcinoma the rectum. HPI: 67 year old female with above diagnosis, who presents for an opinion regarding the role of radiation therapy in the management of the patient's disease. Final recommendations will be communicated back to the requesting physician by way of the shared medical record, or letter to requesting physician via US mail. Patient presents with 3 to 6-month history of stool changes. Recent development of mucousy bloody stools. Has been relying on MiraLAX over the last 3 months, and has had alternating constipation diarrhea. Denies pelvic pain. Denies any bladder related issues. Has been preoccupied with caring for her who has a ongoing illness. Because of advancing symptoms she underwent colonoscopy 03/06/2023 with the finding of a large nearly circumferential lesion (75%) in the rectum. A biopsy was taken, pathology demonstrating moderate to poorly differentiated adenocarcinoma with focal vascular invasion is identified. ALLERGIES No Known Allergies PAST MEDICAL HISTORY Diagnosis Date Constipation Diverticulosis Malignant melanoma (HCC) Rectal cancer (HCC) Prior radiation therapy, collagen vascular disease, or inflammatory bowel disease: No PAST SURGICAL HISTORY Procedure Laterality Date COLONOSCOPY PAST SURGICAL HISTORY OF Right knee surgery PAST SURGICAL HISTORY OF skin lesion removed melanoma REMOVAL GALLBLADDER FAMILY HISTORY Problem Relation Age of Onset Lung Cancer Mother Heart disease Father Social History Tobacco Use Smoking status: Never Passive exposure: Past Smokeless tobacco: Never Substance Use Topics Alcohol use: Yes Comment: socially Drug use: Never COMPLETE REVIEW OF SYSTEMS: GENERAL: feeling well without fatigue, no recent change in weight NECK: denies swelling or pain in neck RESPIRATORY: no cough, no wheezing or shortness of breath CARDIOVASCULAR: no chest pain, no palpitations GI: See HPI : urination is normal DRYWALL INSTALLER: denies abnormal vaginal bleeding, no vaginal discharge, no breast mass/tenderness SKIN: no rash NEURO: no numbness or paresthesias and no weakness of the extremities As noted in HPI DRYWALL INSTALLER: Pain: 0 on a 0-10 pain scale. Pain interventions: None, none required Bowel movement frequency: 2-4/day Bowel movement quality: variable Blood per rectum: Yes Last colonoscopy: 03/06/23 PHYSICAL EXAM: VS: 03/08/2023 Weight 62.8 kg (138 lb 6.4 oz) Height 160.5 cm (5' 3.19 ) verified by 2 caregivers BSA 1.67 BMI 24.37 Temp 37 ?C (98.6 ?F) Pulse 68 Resp 16 BP 119/64 KPS: 90 General Appearance: Alert and oriented. No acute distress. HEENT: NCAT. Sclera anicteric. PERRL. EOMI. Neuro: Speech fluent. Gait normal. No focal deficits. Skin: No rashes noted Hematologic: No signs of active bleeding. DRYWALL INSTALLER: Deferred Rectal: Deferred RADIOLOGY/LABORATORY DATA: see HPI ASSESSMENT AND PLAN: Rectal cancer, adenocarcinoma. Patient does seem to have likely stage IIb adenocarcinoma prostate with possible perirectal lymph nodes seen on staging CT. She is undergoing further work-up evaluation including MRI rectum which hasbeen scheduled. She has follow-up with colorectal surgery as well. It does appear that the patient likely will have the finding of a localized adenocarcinoma of the rectum and potential options of man agement including potential chemoradiation were discussed. We will certainly need to wait for further work-up for developing and recommending full treatment plan. Patient expressed understanding. We will plan to see her back after her work-up. Signed by: Del Hudson MD cc: To use this Smartlink, specify the provider ID whose address you want to display, e.g., .[email or web address][1(where 1 is the provider ID). No referring provider defined for this encounter. documented in this encounterOhiohealth Grant Medical Center08-30-2023 NoteFostoria City Hospital08-30-2023 NoteFostoria City Hospital08-29-2023 Miscellaneous Notes * Telephone Encounter - Colleen Holland - 03/07/2023 9:42 AM EDT Patient is scheduled for 03/15 will give when patient is here tommorow. * Telephone Encounter - Brisa Zapata LPN - 03/07/2023 8:03 AM EDT MRI pelvis order pending your approval. Brisa Zapata LPN documented in this encounterOhiohealth Grant Medical Center08-01-2023 Evaluation note* Encounter Date Diagnosis Assessment Notes Treatment Notes Treatment Clinical Notes Feb, Change in bowel habits (ICD-10 - R19.4) Feb, Flatulence (ICD-10 - R14.3) Feb, Bloody stools (ICD-10 - K92.1) [facility] 04-24-2023 Evaluation note* Encounter Date Diagnosis Assessment Notes Treatment Notes Treatment Clinical Notes Oct, Anxiety and depression (ICD-10 - F41.8) Patient appears to be going great on the above medication. Patient is currently trying to get this medication through [facility] licensed physical therapist assistant. Oct, Hypertension (ICD-10 - I10) The patients blood pressure was WNL upon check in. Therefore, patient is to continue with the above medication. Oct, Primary osteoarthritis of right knee (ICD-10 - M17.11) Patient is scheduled to have right knee replacement with Dr. Lemon 12/07/22, patient will be having PST done in [place] in two weeks. Patient did get cardiac clearance from Dr. Calhoun. In my medical opinion, the patient is clear to proceed with surgery. [facility] Other 03-27-2023 Evaluation note* Encounter Date Diagnosis Assessment Notes Treatment Notes Treatment Clinical Notes Sep, Anxiety and depression (ICD-10 - F41.8) Patient appears to be doing well on the above medication. Still waiting for the prior auth to be approved by insurance. Patient continues to be under alot of stress as her is still in hospice. Samples provided of the 10mg. Sep, Primary osteoarthritis of right knee (ICD-10 - M17.11) Patient is planning to have right knee replaced with Dr. Vlale end of November. Patient will need cardiac clearance for this. We will send a referral to [facility] for the clearance closer to her surgery date. Sep, Atrial fibrillation (ICD-10 - I48.91) Referral intiated to [facility]. Patient had stress test in 2016 with at maximum exercise had a burst of atrial fibrillation. Placed on aspirin and followed by cardiology. We will have cardiology clearance prior to her upcoming knee replacement surgery. [facility] Other 02-27-2023 Evaluation note* Encounter Date Diagnosis Assessment Notes Treatment Notes Treatment Clinical Notes Aug, Anxiety and depression (ICD-10 - F41.8) [facility] Other 02-09-2023 Evaluation note* Encounter Date Diagnosis Assessment Notes Treatment Notes Treatment Clinical Notes Aug, Bilateral primary osteoarthritis of knee (ICD-10 - M17.0) Aug, Other We discussed to day that I think that she exacerbated her knee arthritis when she had that fall. Would recommend doing another Zilretta injection today to try and get her back to her baseline and calm down the inflammation from that fall. Patient agreed. After consent was obtained, the right knee was injected with Zilretta using sterile technique. Patient tolerated the injection well. Also recommended stopping her ibuprofen so that she can only take the meloxicam. Recommended not doubling up on an oral anti-inflammatory. Recommended continuing the Tylenol and the Voltaren gel as previously discussed. We will also get her into physical therapy to work on quad strengthening to help her with going up and down steps. I will plan to see her back in 2 months. After consent was obtained, the left knee was injected with Zilretta using sterile technique. Patient tolerated the injection well. [facility] Other 02-08-2023 Evaluation note* Encounter Date Diagnosis Assessment Notes Treatment Notes Treatment Clinical Notes Aug, Anxiety and depression (ICD-10 - F41.8) [facility] Other 11-09-2022 Evaluation note* Encounter Date Diagnosis Assessment Notes Treatment Notes Treatment Clinical Notes May, Bilateral primary osteoarthritis of knee (ICD-10 - M17.0) May, Other After consent was obtained, the right knee was injected with Zilretta using sterile technique. Patient tolerated the injection well. Follow-up in 3 months. [facility] Other 11-02-2022 Evaluation note* Encounter Date Diagnosis Assessment Notes Treatment Notes Treatment Clinical Notes May, Bilateral primary osteoarthritis of knee (ICD-10 - M17.0) May, Other 1. We had a jake g discussion with the patient today concerning their right and left knee osteoarthritis. Considering she is done so well with her right knee Zilretta injection I recommended that we do another 1 but unfortunately she is not 3 months out from the last injection and therefore we will have to wait on the right knee. However, we can consider a Zilretta injection in the left knee since she has had such great relief in the right knee. 2. Tylenol: Discussed taking Tylenol (acetaminophen). Recommended adjusting their dosing to 1000mg by mouth up to 3 times a day. 3. NSAIDs: Recommended continue meloxicam and Voltaren use. 4. Physical therapy: Discussed formal physical therapy and home regimen. Patient preferred no PT. 5. Injections: Discussed injections as a treatment option. After consent was obtained, the left knee was injected with Zilretta using sterile technique. Patient tolerated the injection well. 6. Follow up next week for her right knee Zilretta injection. [facility] Other 10-12-2022 Evaluation note* Encounter Date Diagnosis Assessment Notes Treatment Notes Treatment Clinical Notes Apr, Stress incontinence in female (ICD-10 - N39.3) Apr, GERD (gastroesophageal reflux disease) (ICD-10 - K21.9) [facility] Other 08-05-2022 Evaluation note* Encounter Date Diagnosis Assessment Notes Treatment Notes Treatment Clinical Notes Feb, Pain in right knee (ICD-10 - M25.561) Feb, Pain in left knee (ICD-10 - M25.562) Feb, Bilateral primary osteoarthritis of knee (ICD-10 - M17.0) Feb, Other 1. We had a jake g discussion with the patient today concerning their right and left knee osteoarthritis. The radiographs do show osteoarthritis of the knees. The right knee osteoarthritis is more diffuse and worse than the left knee just slightly. At this time the patient would like to avoid surgical intervention. We did discuss the risk and benefits of surgical versus nonoperative management. The patient would like to proceed with nonoperative management. We discussed that our options include injections, physical therapy, and the consistent use of anti-inflammatories. All 3 of these options, including their risks and benefits, were discussed at length with the patient. 2. Tylenol: Discussed taking Tylenol (acetaminophen). Recommended adjusting their dosing to 1000mg by mouth up to 3 times a day. 3. NSAIDs: Recommended continue to take her meloxicam daily. We also prescribed her some Voltaren gel. 4. Physical therapy: Discussed formal physical therapy and home regimen. Patient preferred to continue some home exercises. 5. Injections: Discussed injections as a treatment option. After consent was obtained, the right knee was injected with Zilretta using sterile technique. Patient tolerated the injection well. 6. Follow up 3 months [facility] Other Chief complaint Narrative - ReportedEVAN GILL is being seen for a consultation for Charles WARD R Knee replacement 12/07/22.- [place] [address] DO Work Phone: Discharge summary Author Jm Trujillo [facility] October 28, 2023 12:30pm Note Date/Time October 28, 2023 12: 27pm [facility] [address] [place] [id number] Discharge Summary Signed Patient: Evan Gill MR#: [id number] : 1955 Acct:[id number] Age/Sex: 68 / F Adm Date: 4 Loc: 4N Room: 4V4257-[address]: Jm Trujillo DO Copies to: DO Laisha Carrillo MD, ~ Providers Date of Discharge: 10/28/23 Discharging Provider: Jm Trujillo Primary Care Provider: Charles Bazzi Consults: 10/26/23 02:10 Consult to General Surgery Routine Comment: sent from charge phone Consulting Provider: Ion Eckert Reason For Exam: SBO Has Provider Been Notified: Yes Date of Notification: 10/26/23 Time of Notification: 07:32 Discharge Diagnosis (1) Complete small bowel obstruction: (2) Abdominal pain: (3) Vomiting: (4) Ileostomy status: (5) Hypertension: (6) Hyperlipidemia: (7) GERD (gastroesophageal reflux disease): Final Diagnosis Final Discharge Diagnosis: Small bowel obstruction, due to diverting loop ileostomy status. History of robotic laparoscopic assisted low anterior resection for rectal cancer [facility], awaiting plans for ileostomy takedownin the next month or so. Presentation to hospital with intractable abdominal pain when the iliostomy suddeny stopped having any output. Summary Hospital Course Hospital course: This is a 68-year-old woman with a history of rectal cancer. Several months agoshe has undergone a laparoscopic assisted low anterior resection with rectal cancer at the [facility]. She has had a diverting loop ileostomy ever since then. Of note, the patient had a very similar presentation at this hospital on September 29 and were in the ileostomy obstruction relieved on its own and she was ableto go home. This time, on 10/26/23, she presented to the ER with sudden abdominal pain that was worsening and a sensation of output from the ileostomy. She presented emergency room. CT scanning showed obstruction at the level of the ileostomy, with some fecalization of the small intestine leading right up to the ileostomy itself. The ER physicians did contact the [facility] because her colorectal surgeon is based there but there were no beds available at that hospital. Therefore she was admitted to the hospital here to [facility]. She was seen in consultation by general surgery with Dr. Eckert. She was provided with IV fluids. She had nasogastric tube placement for decompression. With that she tolerated things well. Her abdominal pain began to improve. A Dulcolax suppository was placed into the ileostomy and after that she had outputof a lot of thick dense feces and then over some time a return of her normal ileostomy status. She was ambulating the floors. She had return of ileostomy function like she is used to at home and her NG tube was removed and diet was able to be advanced, without recurrence or any abdominal pain or ileostomy problems. At this time she seems to be fully resolved from this episode of ileostomy obstruction. She has plans to follow-up with her surgeon in the near future andhopefully will be able to get the ileostomy taken down and reanastomosed before episodes like this can happen again. Condition Condition at Discharge: Stable Status at Discharge Functional status at discharge: independent ambulation Overall status at discharge: patient is back to baseline Time Spent with Patient Time spent providing/coordinating discharge services (# min): 24 Discharge Plan Discharge Plan Patient Disposition: Home Activity: No Activity Restriction Diet: Regular Prescriptions: Continued aspirin 81 mg tablet,delayed release (DR/EC) 81 mg PO DAILY Patient Comments: TAKE 1 TABLET DAILY oxybutynin chloride 15 mg tablet extended release 24hr 15 mg PO DAILY Patient Comments: TAKE 1 TABLET BY MOUTH ONCE DAILY omega 5-zej-gjt-fish oil [Fish Oil] 1,000 mg (120 mg-180 mg) Capsule 1 cap PO DAILY magnesium 500 mg Tablet 500 mg PO DAILY meloxicam 15 mg tablet 15 mg PO DAILY Probiotic 20 billion cell Capsule 20,000 mmu cells PO DAILY Rx Instructions: administer with a meal Trintellix 5 mg Tablet 5 mg PO DAILY prochlorperazine maleate [Compazine] 10 mg Tablet 10 mg PO Q6H PRN (Reason: Nausea) ondansetron 8 mg Tablet,Disintegrating 8 mg PO Q8H PRN (Reason: Nausea) omeprazole 40 mg capsule,delayed release(DR/EC) 40 mg PO DAILY amlodipine-benazepril 5-10 mg capsule 1 cap PO DAILY Hold Instructions: Follow with PCP to restart if needed. Trintellix 5 mg tablet 5 mg PO DAILY progesterone micronized 100 mg Capsule 150 mg PO DAILY Prolia 60 mg/mL Syringe 60 mg SUBCUT [id number] Patient Comments: Last received in November 2022 Exam Physical Exam Vital Signs: Temp Pulse Resp BP Pulse Ox O2 Del Method 98.0 F 60 12 112/65 97 Room Air 10/28/23 08:05 10/28/23 08:05 10/28/23 08:05 10/28/23 08:05 10/28/23 08:05 10/28/23 08:05 Narrative: General: Resting comfortably in bed. Visitor at the bedside. Pulmonary: Clear to auscultation bilaterally. Respirations calm and easy. Cardiac: Regular rate and rhythm to auscultation. GI: Today the ileostomy bag has a fair amount of dark brown liquid in it. No blood at all. No mucus. No solid fecal material is in there now, but I suspect that most of that passed yesterday. To auscultation bowel sounds are still hypoactive. No pain to palpation throughout the abdomen. Diagnostic Studies Completed and Pending Studies Pending studies at discharge: 10/25/23 23:19 Blood Culture Stat Preliminary micro results at discharge 10/25/23 23:19 Blood Culture - Preliminary Blood - Right Antecubital No Growth 2 Days 10/25/23 23:20 Blood Culture - Preliminary Blood - Right Hand No Growth 2 Days Labs on day of discharge: 10/28/23 05:39: Corrected WBC 5.6, Uncorrected WBC Count 5.6, RBC 3.56 L, Hgb 10.6 L, Hct 31.9 L, MCV 89.6, MCH 29.7, MCHC 33.2, RDW 14.9, Plt Count 294, MPV 6.4, Neut % (Auto) 66.8, Lymph % (Auto) 13.6, Mcintosh % (Auto) 11.9, Eos % (Auto) 7.1, Baso % (Auto) 0.6, Nucleat RBC Rel Count 0.1, Neut # (Auto) 3.8, Lymph # (Auto) 0.8 L, Mcintosh # (Auto) 0.7, Eos # (Auto) 0.4, Baso # (Auto) 0.0, PHA Creatinine Clear 61.83, Sodium 141, Potassium 3.9, Chloride 104, Carbon Dioxide 31.8 H, Anion Gap 9.1, BUN 11, Creatinine 0.60, Est GFR (CKD-EPI) > 60.0 Documented By: Jm Trujillo DO [id number] Signed By: <Electronically signed by Jm Trujillo, DO> 10/28/23 1230 [facility] Work Phone: evaluation noteNo assessment information available [facility] Work Phone: evaluation noteNo InformationN[employer] Other Evalupzbdy note* Diagnosis Rectal adenocarcinoma (HCC)- Primary Malignant neoplasm of rectum [facility] Diagnosis Rectal adenocarcinoma (HCC)- Primary Malignant neoplasm of rectum Rectal mass- Primary Other symptoms involving digestive system [facility] Diagnosis Rectal cancer (HCC)- Primary Malignant neoplasm of rectum [facility] Diagnosis Rectal cancer (HCC)- Primary Malignant neoplasm of rectum [facility] Diagnosis Rectal adenocarcinoma (HCC)- Primary Malignant neoplasm of rectum [facility] Diagnosis Rectal adenocarcinoma (HCC)- Primary Malignant neoplasm of rectum [facility] Diagnosis Onset Date Resolution Status Chest pain acute [facility] Work Phone: Evaluation note* Diagnosis Onset Date Resolution Status Chest pain acute Colorectal cancer acute [facility] Work Phone: evaluation note* Diagnosis Rectal cancer (HCC)- Primary Malignant neoplasm of rectum Dyspepsia Dyspepsia and other specified disorders of function of stomach [facility] Diagnosis Rectal adenocarcinoma (HCC)- Primary Malignant neoplasm of rectum documented in this encounter [facility] note* Diagnosis Rectal cancer (HCC)- Primary Malignant neoplasm of rectum documented in this encounter [facility] note* Diagnosis Rectal adenocarcinoma (HCC)- Primary Malignant neoplasm of rectum documented in this encounter [facility] note* Diagnosis Muscle soreness- Primary Mylagia and myositis, unspecified documented in this encounter [facility] note* Diagnosis Rectal cancer (HCC)- Primary Malignant neoplasm of rectum [facility] Diagnosis Dysuria- Primary documented in this encounter [facility] note* Diagnosis Dysuria- Primary Rectal adenocarcinoma (HCC) Malignant neoplasm of rectum documented in this encounter [facility] note* Diagnosis Muscle soreness- Primary Mylagia and myositis, unspecified documented in this encounter [facility] note* Diagnosis Rectal adenocarcinoma (HCC)- Primary Malignant neoplasm of rectum documented in this encounter [facility] note* Diagnosis Rectal adenocarcinoma (HCC)- Primary Malignant neoplasm of rectum documented in this encounter [facility] note* Diagnosis Screen for colon cancer- Primary Special screening for malignant neoplasms, colon Rectal cancer (HCC) Malignant neoplasm of rectum documented in this encounter [facility] note* Diagnosis Rectal cancer (HCC) Malignant neoplasm of rectum documented in this encounter [facility] note* Diagnosis Rectal cancer (HCC)- Primary Malignant neoplasm of rectum documented in this encounter [facility] note* Diagnosis Rectal cancer (HCC)- Primary Malignant neoplasm of rectum documented in this encounter [facility] note* Diagnosis Other chest pain- Primary Essential hypertension Unspecified essential hypertension Colorectal cancer (CMS/HCC) Malignant neoplasm of colon, unspecified site BMI 24.0-24.9, adult History of atrial fibrillation Personal history of other diseases of circulatory system documented in this encounter [facility] Work Phone: Evaluation note* Diagnosis Pre-op examination- Primary Preoperative examination, unspecified Atrial fibrillation, unspecified type (HCC) Essential hypertension Unspecified essential hypertension Hyperlipidemia, unspecified hyperlipidemia type Gastroesophageal reflux disease without esophagitis Esophageal reflux Other iron deficiency anemia Rectal cancer (HCC) Malignant neoplasm of rectum Mixed anxiety depressive disorder Dysthymic disorder Rectal cancer (HCC) Malignant neoplasm of rectum documented in this encounter [facility] note* Diagnosis Rectal cancer (HCC)- Primary Malignant neoplasm of rectum documented in this encounter [facility] note* Diagnosis Follow-up examination after colorectal surgery- Primary Follow-up examination, following other surgery [facility]* Diagnosis Onset Date Resolution Status SBO (small bowel obstruction) acute [facility] Work Phone: evaluation note* Diagnosis Onset Date Resolution Status Ileostomy status acute Rectal cancer acute SBO (small bowel obstruction) acute [facility] Work Phone: evaluation note* Diagnosis History of rectal cancer Personal history of malignant neoplasm of rectum, rectosigmoid junction, and anus [facility] Diagnosis Muscle soreness- Primary Mylagia and myositis, unspecified documented in this encounter [facility] note* Diagnosis History of rectal cancer- Primary Personal history of malignant neoplasm of rectum, rectosigmoid junction, and anus [facility] Diagnosis Onset Date Resolution Status SBO (small bowel obstruction) resolved [facility] Work Phone: evaluation note* Diagnosis Onset Date Resolution Status SBO (small bowel obstruction) resolved Acute UTI acute Partial small bowel obstruction acute [facility] Work Phone: evaluation note* Diagnosis Onset Date Resolution Status Ileostomy status acute SBO (small bowel obstruction) resolved Abdominal pain acute Acute UTI acute Complete small bowel obstruction acute Partial small bowel obstruction acute Vomiting acute [facility] Work Phone: evaluation note* Diagnosis Pain in right hip- Primary Pain in joint, pelvic region and thigh [facility] Diagnosis Follow-up examination after colorectal surgery- Primary Follow-up examination, following other surgery [facility] Diagnosis Rectal adenocarcinoma (HCC)- Primary Malignant neoplasm of rectum Follow-up examination after colorectal surgery- Primary Follow-up examination, following other surgery [facility]* Diagnosis Follow-up examination after colorectal surgery- Primary Follow-up examination, following other surgery Rectal cancer (HCC) 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 documented in this encounter [facility] note* Diagnosis History of rectal cancer- Primary Personal history of malignant neoplasm of rectum, rectosigmoid junction, and anus [facility] N[facility]ative - Reported* Type Description Date Medical History colonoscopy 2005 Medical History 2005 EKG done Medical History 2009 pelvic exam done - follows with her [facility] Medical History 2008 mammogram done - follows wi th her [facility] Medical History 2004 CT scan Medical History Blood Work done on 10-20-11 Lipid , CMP, CBC, T4, TSH Medical History 12/31/12 Carotid US Medical History 10/28/14 Labs Medical History 06/2015 colonoscopy-normal Medical History 05/26/15 EKG in office Medical History 10/14/2015 Mammogram-Dr. Mayorga Medical History 08/2015 Aorta & Carotid Screening s; moderate stenosis Medical History 11/25/2016 BONE DENSITY SCAN Medical History 04/2017 GXT stress test-abnormal Medical History 11/09/18 Cystoscopy w/ Dr. Gael flores Medical History 10/[address] Mayorga Surgical History gallbladder Surgical History ankle and foot Surgical History screening colonocopy -Dr. La Nena alarcon 06/22/15 Hospitalization History see above [facility] Other Hisptve general Narrative - Reported* Type Description Date Medical History colonoscopy 2005 Medical History 2005 EKG done Medical History 2009 pelvic exam done - follows with her [facility] Medical History 2008 mammogram done - follows wi th her [facility] Medical History 2004 CT scan Medical History Blood Work done on 10-20-11 Lipid , CMP, CBC, T4, TSH Medical History 12/31/12 Carotid US Medical History 10/28/14 Labs Medical History 06/2015 colonoscopy-normal Medical History 05/26/15 EKG in office Medical History 10/14/2015 Mammogram-Dr. Mayorga Medical History 08/2015 Aorta & Carotid Screening s; moderate stenosis Medical History 11/25/2016 BONE DENSITY SCAN Medical History 04/2017 GXT stress test-abnormal Medical History 11/09/18 Cystoscopy w/ Dr. Gael flores Medical History 10/[address] Mayorga Medical History 05/20/22 Mammogram Medical History NON SMOKER Surgical History gallbladder Surgical History ankle and foot Surgical History screening colonocopy -Dr. La Nena alarcon 06/22/15 Hospitalization History see above [facility] Other [facility] general Narrative - Reported* Type Description Date Medical History colonoscopy 2005 Medical History 2005 EKG done Medical History 2008 pelvic exam don e - follows with her [facility] Medical History 2008 mammogram done - follows wi th her [facility] Medical History 2004 CT scan Medical History Blood Work done on Lipid, CMP, CBC, T4, TSH Medical History 12/31/12 Carotid US Medical History 10/28/14 Labs Medical History 06/2015 colonoscopy-normal Medical History 05/26/15 EKG in office Medical History 10/14/2015 Mammogram-Dr. Mayorga Medical History 08/2015 Aorta & Carot id Screenings; moderate stenosis Medical History 11/25/2016 BONE DENSITY SCAN Medical History 04/2017 GXT stress test-abnormal Medical History 11/09/18 Cystoscopy w/ Dr. Gael flores Medical History 10/[address] Mayorga Medical History 05/20/22 Mammogram Medical History NON SMOKER Medical History Colonosco py, Diagnosed with rectal cancer Medical History Stress Test, Negative Surgical History gallbladder Surgical History ankle and foot Surgical History screening colonocopy -Dr. La Nena alarcon 06/22/15 Hospitalization History see above Hospitalization History Chest Pain [facility] 04/05/23- 04/06/23 [facility] Other History of Present illness Narrative* Patient is here for cardiovascular risk for preoperative risk assessment. She is a 67-year-old withno prior cardiac history except hypertension who is scheduled to undergo surgery. Patient denies any previous history of coronary artery, congestive heart failure or valvular heart disease. She reports she was fairly active though she developed some issues. Advised that she continue to do her routine home chores. Able to climb 1-2 flight of stairs. She denies current chest pain, palpitation, lightheadedness, visual syncope. I have seen the patient back in 2016 for a brief 10-second atrial fibrillation noted during stress test. Stress test the patient was able to transfer 9 minutes. Patient had no recurrence. EKG is normal. * Assessment * 1. Preoperative assessment #1 surgery. Patient without cardiac symptoms, normal cardiac examination, functional class I with negative stress test 2 years back. Operative risk acceptable level * 2. Hypertension controlled * 3. Remote documentation of 10-second episode of atrial fibrillation * plan * 1. based on ACC/AHA guidelines the patient completely without the need for further testing. Preoperative risk is low and acceptable * 2. We will follow in the future on as-needed basis -[facility]-Yudith 250 DO Work Phone: Reason for referral (narrative)* Outpatient Procedure (Routine) - Pending Review Specialty Diagnoses / Procedures Referred By Contac t Referred To Contact [facility] Diagnoses Dyspepsia Procedures EGD DIAGNOSTIC ESOPHAGOGASTRODUODENOSC OPY TRANSORAL DIAGNOSTIC Darnell Corona MD [address] [place] [address] [address] Referral ID Status Reason Start Date Expiration Date Visits Requested Visits Authorized [id number] Pending Review Auto-Generat ed Referral 04/06/2023 04/05/2024 1 1 * Consult, Test, Treat (Routine) - Authorized Specialty Diagnoses / Procedures Referred By Contac t Referred To Contact Gastroenterology Diagnoses Rectal cancer (HCC) Procedures CONSULT TO GASTROENTEROLOGY OFFICE/OUTPATIENT [facility] HIGH MDM 60-74 MINUTES Naheed Elias PA-C [address] [place] [address] Referral ID Status Reason Start Date Expiration Date Visits Requested Visits Authorized [id number] Authorized PCP Requested Referral 04/05/2023 04/04/2024 1 1 [facility] for referral (narrative)* Outpatient Procedure (Routine) - Closed Specialty Diagnoses / Procedures Referred By Contac t Referred To Contact [facility] Diagnoses Rectal mass Procedures SIGMOIDOSCOPY SIGMOIDOSCOPY FLX DX W/COLLJ SPEC BR/[place] [address] [place] [address] [facility] Disease [place] [address] [place] [address] Referral ID Status Reason Start Date Expiration Date V isits Requested Visits Authorized [id number] Closed Auto-Generate d Referral 03/14/2023 03/14/2024 1 1 [facility] for referral (narrative)* Outpatient Procedure (Routine) - Closed Specialty Diagnoses / Procedures Referred By Contac t Referred To Contact [facility] Diagnoses Rectal cancer (HCC) Procedures SIGMOIDOSCOPY SIGMOIDOSCOPY FLX DX W/COLLJ SPEC BR/WA IF PFRMD Cors [facility] [address] [place] [address] [address] Referral ID Status Reason Start Date Expiration Date V isits Requested Visits Authorized [id number] Closed Auto-Generate d Referral 05/23/2023 05/23/2024 1 1 [facility] for referral (narrative)* Consultation (Routine) - Authorized Specialty Diagnoses / Procedures Referred By Contac t Referred To Contact Cardiology Diagnoses Other chest pain Essential hypertension Procedures Follow Up In Cardiology Marcos Rios MD [address] [facility] 2, [facility] [address] [place] [address] Marcos Rios MD [address] [facility] 2, [facility] [address] [place] [address] Referral ID Status Reason Start Date Expiration Date V isits Requested Visits Authorized [id number] Authorized 07/25/2023 07/24/2024 1 1 [facility] Work Phone: Reason for visit Narrative* Outpatient Procedure (Routine) - Closed Specialty Diagnoses / Procedures Referred By Contac t Referred To Contact [facility] Diagnoses Rectal mass Procedures SIGMOIDOSCOPY SIGMOIDOSCOPY FLX DX W/COLLJ SPEC BR/[place] [address] [place] [address] [facility] [address] [address] Referral ID Status Reason Start Date Expiration Date V isits Requested Visits Authorized [id number] Closed Auto-Generate d Referral 03/14/2023 03/14/2024 1 1 [facility] Outpatient Procedure (Routine) - Closed Specialty Diagnoses / Procedures Referred By Contac t Referred To Contact [facility] Diagnoses Rectal cancer (HCC) Procedures SIGMOIDOSCOPY SIGMOIDOSCOPY FLX DX W/COLLJ SPEC BR/WA IF PFRMD [facility] [address] [place] [address] [facility] [place] [address] [place] [address] Referral ID Status Reason Start Date Expiration Date V isits Requested Visits Authorized [id number] Closed Auto-Generate d Referral 05/23/2023 05/23/2024 1 1 [facility] Summary Purpose Family History Relationship Condition Age at Onset Recorded Date/T haydee father Coronary artery disease Unknown Arthritis Unknown Hypertension Unknown Not Specified Malignant neoplasm of lung Unknown Unknown Family Member Name Dates Details Family history of CABG: Fath er(V17.49, Z82.49) Status:Active Family history of chronic ob structive pulmonary disease: Father(V17.6, Z82.5) Status:Active Family history of lung cance r: Mother(V16.1, Z80.1) Status:Active No pertinent family history: Sister, Brother(V49.89, Z78.9) Status:Active Relationship Condition Age at Onset Recorded Date/T haydee father Coronary artery disease Unknown Arthritis Unknown Hypertension Unknown Not Specified Malignant neoplasm of lung Unknown father Hypertension Unknown Unknown grandparent Heart disease Unknown Cardiac disease Unknown Diabetes mellitus Unknown grandparent Unknown Not Specified Hypertension Unknown Advance Directives Advance Directive Response Recorded Date/ Time Advance Directives No August 12:21pm Advance Directive Response Recorded Date/ Time Advance Directives No August 11:21am Advance Directive Response Recorded Date/ Time Advance Directives No August 03, 2023 6:15pm Chief Complaint and Reason for Visit Chief Complaint M25.561 M25.562 Chief Complaint Screening Chief Complaint Change in Bowel Habi ts, Bloody Stools, Gas chest pain Reason for Visit Chest pain Chief Complaint Change in Bowel Habi ts, Bloody Stools, Gas chest pain Reason for Visit Chest pain Colorectal cancer Chief Complaint chest pain Rectal Cancer Reason for Visit Chest pain Colorectal cancer Chief Complaint abd pain Reason for Visit SBO (small bowel obs truction) Chief Complaint abd pain abd pain Reason for Visit Ileostomy status Rectal cancer SBO (small bowel obstruction) Chief Complaint abd pain abd pain E78.5 Reason for Visit SBO (small bowel obs truction) Chief Complaint abd pain abd pain E78.5 abd pain Reason for Visit SBO (small bowel obs truction) Acute UTI Partial small bowel obstruction Chief Complaint abd pain abd pain E78.5 abd pain abd pain Reason for Visit Ileostomy status SBO (small bowel obstruction) Abdominal pain Acute UTI Complete small bowel obstruction Partial small bowel obstruction Vomiting Reason for Referral Specialty Diagnoses / Procedures Referred By Contac t Referred To Contact [facility] Diagnoses Pain in right hip Procedures CONSULT TO PHYSICAL THERAPY [facility]ICAL TH[facility]APY [facility] [address] [place] [address] [place] [address] [facility] [place] [address] [place] [address] Referral ID Status Reason Start Date Expiration Date Visits Requested Visits Authorized [id number] Authorized PCP Requested Referral Auto-Generate d Referral 11/21/2023 11/20/2024 99 99 Specialty Diagnoses / Procedures Referred By Contac t Referred To Contact General Surgery Diagnoses Rectal cancer (HCC) Procedures CONSULT TO GENERAL SURGERY OFFICE/OUTPATIENT [facility] 60-74 MINUTES Darnell Corona MD [address] [place] [address] Referral ID Status Reason Start Date Expiration Date Visits Requested Visits Authorized [id number] Authorized PCP Requested Referral 06/14/2023 06/13/2024 1 1 Specialty Diagnoses / Procedures Referred By Contac t Referred To Contact MR IMAGING Diagnoses Rectal cancer (HCC) Procedures MRI RECTUM WO/W IVCON MRI PELVIS W/O & W/CONTRAST MATERIAL Darnell Corona MD [address] [place] [address] Mr Imaging [id number] Referral ID Status Reason Start Date Expiration Date Visits Requested Visits Authorized [id number] Authorized Auto-Generat ed Referral 06/09/2023 05/27/2024 1 1 Specialty Diagnoses / Procedures Referred By Contac t Referred To Contact Diagnoses Rectal adenocarcinoma (HCC) Procedures CT SIM PLANNING RADIATION ONCOLOGY THER RAD SIMULAJ-AIDED FIELD SETTING COMPLEX Del Hudson MD [address] [place] [address] [place] [address] Referral ID Status Reason Start Date Expiration Date Visits Requested Visits Authorized [id number] Pending Review PCP Requested Referral 03/23/2023 06/20/2023 1 1 Specialty Diagnoses / Procedures Referred By Contac t Referred To Contact MR IMAGING Diagnoses Rectal adenocarcinoma (HCC) Procedures MRI RECTUM WO/W IVCON MRI PELVIS W/O & W/CONTRAST MATERIAL Del Hudson MD [address] [place] [address] [place] [address] [place] [address] Referral ID Status Reason Start Date Expiration Date Visits Requested Visits Authorized [id number] Authorized Auto-Generat ed Referral 03/07/2023 07/09/2023 1 1 Reason diagnostic colonosco py Diagnosis 1 Change in bowel habi ts (R19.4) Diagnosis 2 Flatulence (R14.3) Diagnosis 3 Bloody stools (K92.1 ) Referral Organization [facility] [place] Referring Provider First Name Charles Referring Provider Last Name Jluis Referring Provider Specialty Family Skyla rodriguez Referred Provider Specialty Gastroentero logy Referral Priority Routine Reason *FU 10/11 needs ca rdiac clearance (right knee replacement in November) ; [facility] Diagnosis 1 Atrial fibrillation (I48.91) Diagnosis 2 Primary osteoarthrit is of right knee (M17.11) Referral Organization [facility] [place] Referring Provider First Name Charles Referring Provider Last Name Jluis Referring Provider Specialty Family Prac jennifer Referred Organization [facility] Referred Address [address] [facility] [address] ,[place],[address] Referred Provider Specialty Cardiology Referral Priority Routine General Notes Fore, Dominga M 023 08:56:54 AM >Received today. [facility] office request us to fax the referral to them and they will review and call patient to schedule their appointment. Referral was fax Additional Source Comments INFORMATION SOURCE (unrecogn ized section and content) DATE CREATED AUTHOR 01/02/2018 [facility] DATE CREATED AUTHOR AUTHOR'S ORGANIZ ATION 10/27/2022 [employer] DATE CREATED AUTHOR AUTHOR'S ORGANIZ ATION 11/11/2022 [facility] DATE CREATED AUTHOR AUTHOR'S ORGANIZ ATION 04/25/2023 [facility] DATE CREATED AUTHOR AUTHOR'S ORGANIZ ATION 07/27/2023 [facility] DATE CREATED AUTHOR AUTHOR'S ORGANIZ ATION 07/28/2023 [facility] DATE CREATED AUTHOR AUTHOR'S ORGANIZ ATION 11/22/2023 [facility] DATE CREATED AUTHOR AUTHOR'S ORGANIZ ATION 11/25/2023 [facility] DATE CREATED AUTHOR AUTHOR'S ORGANIZ ATION 02/08/2024 [facility] DATE CREATED AUTHOR AUTHOR'S ORGANIZ ATION 02/09/2024 [facility] dical Specialists EPIC REASON FOR VISIT (unrecogniz ed section and content) Reason Comments Orders Reason Comments Rectal Cancer Reason Comments Care Coordination Treatment plan Reason Comments First Time Treatment Education Reason Comments Patient Education Reason Comments Refill Request Reason Onset Date Comments Simulation Request Form 03/22/2023 Reason Comments Radiotherapy On-treatment Visit Reason Comments Care Coordination C1D1 treatment follo w up call Reason Comments Radiology Pre Procedure Instructions Reason Comments Care Coordination Clinical update Reason Comments Rectal Cancer OTV Reason Comments Care Coordination ER recommendations Reason Comments Rectal Cancer Reason Comments Urinalysis Reason Comments Appointment reminder Appointment reminde r call--spoke with patient--gave directions to the office. Specialty Diagnoses / Procedures Referred By Contac t Referred To Contact MR IMAGING Diagnoses Rectal cancer (HCC) Procedures MRI RECTUM WO/W IVCON MRI PELVIS W/O & W/CONTRAST MATERIAL Darnell Corona MD [address] [place] [address] [place] [address] Referral ID Status Reason Start Date Expiration Date V isits Requested Visits Authorized [id number] Closed Auto-Generate d Referral 06/09/2023 05/27/2024 1 1 Reason Comments Rectal Cancer Follow up Reason Comments Care Coordination Medication update Reason Comments Follow-up [address] [facility] [place] Reason Comments Care Coordination Hospital d/c follow up call Reason Comments Vice President Tax - Other Tumor board Reason Comments Care Coordination Follow up appointmen t Reason Comments Post Op s/p a Robotic Assist ed Laparoscopic Proctosigmoidectomy (Low Anterior Resection) with Colorectal Anastomosis and Diverting Loop Ileostomy, Laparoscopic Mobilization of Splenic Flexure, Flexible Sigmoidoscopy on 08/25/[address] Singer for rectal cancer Reason Comments Rectal Cancer 4 week follow up Reason Comments Patient Question Medication Question Reason Comments Care Coordination Lab results Reason Comments Patient Question Reason Comments Care Coordination signatera Reason Comments Post Op s/p a Flexible Sigmo idoscopy, Ileostomy Closure on 11/08/[address] Singer. Reason Comments Port Removal Reason Comments Care Coordination Lab question Reason Comments Established Patient Follow-Up Post Op Reversal 11/08/23 Reason Comments Future Appointment Reason Onset Date Comments Refill Request 02/06/2024 Reason Comments Signatera results Care Teams (unrecognized sec tion and content) Team Status: Active Member Role Status Seda Bazzi , DO Primary Care Provider Active Team Status: Active Member Role Status Seda Bazzi DO Primary Care Provide r, Attending Provider Active Start: August 26, 2023 Team Status: Active Member Role Status Seda Bazzi DO Primary Care Provide r, Attending Provider Active Start: August 27, 2023 Team Status: Active Member Role Status Seda Bazzi DO Primary Care Provide r, Attending Provider Active Start: August 28, 2023 Team Status: Active Member Role Status Seda Bazzi DO Primary Care Provide r, Attending Provider Active Start: August 29, 2023 Team Status: Active Member Role Status Seda Bazzi DO Primary Care Provide r, Attending Provider Active Start: August 30, 2023 Team Status: Active Member Role Status Seda Bazzi DO Primary Care Provide r, Attending Provider Active Start: August 31, 2023 Team Status: Active Member Role Status Seda Bazzi DO Primary Care Provide r, Attending Provider Active Start: September 01, 2023 Team Status: Active Member Role Status Seda Bazzi DO Primary Care Provide r, Attending Provider Active Start: September 02, 2023 Team Status: Active Member Role Status Seda Bazzi DO Primary Care Provide r, Attending Provider Active Start: September 03, 2023 Team Status: Active Member Role Status Seda Bazzi DO Primary Care Provide r, Attending Provider Active Start: September 04, 2023 Team Status: Active Member Role Status Dates Charles Kuns , DO Primary Care Provider Active Sta rt: September 30, 2023 Patrice Gomez , DO Emergency Provider Active Start: September 30, 2023 Miguel Ángel Delgadillo MD Admit Provider, Atte nding Provider Active Start: September 30, 2023 Team Status: Inactive Member Role Status Dates Charles Bazzi , DO Primary Care Provider, Attending Provi johnson Active Team Status: Inactive Member Role Status Dates Charles Bazzi , DO Primary Care Provider Active Caroline Rangel II, MD Attending Provider Active [employer] Member Relationship Specialty Start Date End Date Charles Bazzi [address] [place] [phone] PCP - General Family Medicine 03/16/23 Colleen Solorio RN [address] [place] [address] Specialty Vice President Tax Hematology/Oncology 03/22/23 Darnell Corona MD [address] [place], [place] [phone] Physician Hematology/Oncology 03/22/23 Naheed Elias, PA-C [address] [place] [address] [place] [address] Physician Wharf Tender Helper Hematology/Oncology 03/22/23 [employer] Crew Member Relationship Specialty Start Date End Date Jluis Charles Opal [address] [place] [phone] PCP - General Family Medicine 03/16/23 Colleen Solorio RN [address] [place] [place] [address] Specialty Vice President Tax Hematology/Oncology 03/22/23 Darnell Corona MD [address] [place] [address] Physician Hematology/Oncology 03/22/23 Naheed Elias PA-C [address] [facility] [place] [place] [address] Physician Wharf Tender Helper Hematology/Oncology 03/22/23 Hull Line Crew Member Relationship Specialty Start Date End Date Charles Bazzi [address] [place] [phone] PCP - General Family Medicine 03/16/23 Colleen Solorio RN [address] [place] [address] Specialty Vice President Tax Hematology/Oncology 03/22/23 Darnell Corona MD [facility] [address] [facility] [place] [address] Physician Hematology/Oncology 03/22/23 Naheed Elias PA-C [facility] [address] [facility] [place] [address] Physician Wharf Tender Helper Hematology/Oncology 03/22/23 Hull Line Crew Member Relationship Specialty Start Date End Date Charles Bazzi [address] [place] [phone] PCP - General Family Medicine 03/16/23 Colleen Solorio RN [address] [facility] [place] [place] [address] Specialty Vice President Tax Hematology/Oncology 03/22/23 Darnell Corona MD [address] [facility] [place] [address] Physician Hematology/Oncology 03/22/23 Naheed Elias PA-C [address] [facility] [place] [place] [address] Physician Wharf Tender Helper Hematology/Oncology 03/22/23 Hull Line Crew Member Relationship Specialty Start Date End Date Charles Bazzi [address] [place], [place] [phone] PCP - General Family Medicine 03/16/23 Colleen Solorio RN [address] [facility] [place] [place] [address] Specialty Vice President Tax Hematology/Oncology 03/22/23 Darnell Corona MD [address] [facility] [place] [address] Physician Hematology/Oncology 03/22/23 Naheed Elias PA-C [address] [facility] [place] [address] [place], [facility] Physician Wharf Tender Helper Hematology/Oncology 03/22/23 Hull Line Crew Member Relationship Specialty Start Date End Date Charles Bazzi [address] [place], [place] [phone] PCP - General Family Medicine 03/16/23 Colleen Solorio RN [address] [facility] [place] [place] [address] Specialty Vice President Tax Hematology/Oncology 03/22/23 Darnell Corona MD [address] [facility] [place] [phone] Physician Hematology/Oncology 03/22/23 Naheed Elias PAGabriel [address] [facility] [place] [place] [address] Physician Wharf Tender Helper Hematology/Oncology 03/22/23 Hull Line Crew Member Relationship Specialty Start Date End Date Charles Bazzi [address] [place], [place] [phone] PCP - General Family Medicine 03/16/23 Colleen Solorio RN [address] [facility] [place] [place] [address] Specialty Vice President Tax Hematology/Oncology 03/22/23 Darnell Corona MD [address] [facility] [place] [address] Physician Hematology/Oncology 03/22/23 Naheed Elias PA-C [address] [facility] [place] [place] [address] Physician Wharf Tender Helper Hematology/Oncology 03/22/23 Hull Line Crew Member Relationship Specialty Start Date End Date Charles Bazzi [address] [place], [place] [phone] PCP - General Family Medicine 03/16/23 Colleen Solorio RN [address] [facility] [place] [place] [address] Specialty Vice President Tax Hematology/Oncology 03/22/23 Darnell Corona MD [address] [facility] [place] [address] Physician Hematology/Oncology 03/22/23 Naheed Elias PA-C [address] [facility] [place] [place] [address] Physician Wharf Tender Helper Hematology/Oncology 03/22/23 Team Status: Inactive Member Role Status Dates Charles Bazzi DO Primary Care Provider Active Tomi Greene MD Attending Provider Active Team Status: Active Member Role Status Seda Bazzi DO Primary Care Provider Active Gregory Rangel PA-C Emergency Provider Active Jordan Hare DO Admit Provider, Attending Provider Active Team Status: Inactive Member Role Status Dates Charles Bazzi DO Primary Care Provider Active Gregory Rangel PA-C Emergency Provider Active Jordan Hare , Admit Provider Active Aggie Harmon RN Other Provider Active Akila Stokes , Other Provider Active Troy Combs MD Other Provider Active David Espinosa MD Other Provider Active Marcos Rios MD Other Provider Active Blas Villagomez MD Other Provider Active Pushpa Saucedo APRN Other Provider Active Amanda Mora MD Other Provider Active Jomar Campos MD Other Provider Active Kandace Shah MD Other Provider Active Arlette rOozco , [facility] Other Provider Active Wendy Ocasio MD Other Provider Active Agustin Negron MD Attending Provider Active Darnell Corona MD Other Provider Active [employer] Member Relationship Specialty Start Date End Date Charles Bazzi [address] [place] [phone] PCP - General Family Medicine 03/16/23 Colleen Solorio RN [address] [facility] [place] [address] Specialty Vice President Tax Hematology/Oncology 03/22/23 Darnell Corona MD [address] [place] [address] [place] [phone] Physician Hematology/Oncology 03/22/23 Naheed Elias PA-C [address] [place] [address] [place] [address] Physician Wharf Tender Helper Hematology/Oncology 03/22/23 Hull Line Crew Member Relationship Specialty Start Date End Date Charles Bazzi [address] [place] [phone] PCP - General Family Medicine 03/16/23 Colleen Solorio RN [address] [facility] [place] [address] Specialty Vice President Tax Hematology/Oncology 03/22/23 Darnell Corona MD [address] [facility] [place] [address] Physician Hematology/Oncology 03/22/23 Naheed Elias, JASVIR-C [address] [facility] [place] [address] Physician Wharf Tender Helper Hematology/Oncology 03/22/23 Hull Line Crew Member Relationship Specialty Start Date End Date Charles Bazzi [address] [place], [place] [phone] PCP - General Family Medicine 03/16/23 Colleen Solorio RN [address] [facility] [place] [address] Specialty Vice President Tax Hematology/Oncology 03/22/23 Darnell Corona MD [address] [facility] [place] [address] Physician Hematology/Oncology 03/22/23 Naheed Elias, PAGabriel [address] [facility] [place] [address] Physician Wharf Tender Helper Hematology/Oncology 03/22/23 Hull Line Crew Member Relationship Specialty Start Date End Date Charles Bazzi [address] [place] [phone] PCP - General Family Medicine 03/16/23 Colleen Solorio RN [address] [facility] [place] [place] [address] Specialty Vice President Tax Hematology/Oncology 03/22/23 Darnell Corona MD [address] [facility] [place] [address] Physician Hematology/Oncology 03/22/23 Naheed Elias PA-C [address] [facility] [place] [address] Physician Wharf Tender Helper Hematology/Oncology 03/22/23 Hull Line Crew Member Relationship Specialty Start Date End Date Charles Bazzi [address] [place], [place] [phone] PCP - General Family Medicine 03/16/23 Colleen Solorio RN [address] [facility] [place] [address] Specialty Vice President Tax Hematology/Oncology 03/22/23 Darnell Corona MD [facility] [address] [facility] [place] [phone] Physician Hematology/Oncology 03/22/23 Naheed Elias PA-C [facility] [address] [facility] [place] [address] [place], [facility] Physician Wharf Tender Helper Hematology/Oncology 03/22/23 Hull Line Crew Member Relationship Specialty Start Date End Date Charles Bazzi [address] [place], [place] [phone] PCP - General Family Medicine 03/16/23 Colleen Solorio RN [address] [facility] [place] [place] [address] Specialty Vice President Tax Hematology/Oncology 03/22/23 Darnell Corona MD [address] [facility] [place] [address] Physician Hematology/Oncology 03/22/23 Naheed Elias PA-C [address] [facility] [place] [place] [address] Physician Wharf Tender Helper Hematology/Oncology 03/22/23 Hull Line Crew Member Relationship Specialty Start Date End Date Angela Bazzirocio Elkinser [address] [place], [place] [phone] PCP - General Family Medicine 03/16/23 Colleen Solorio RN [address] [facility] [place] [place] [address] Specialty Vice President Tax Hematology/Oncology 03/22/23 Darnell Corona MD [address] [place] [address] [place] [address] Physician Hematology/Oncology 03/22/23 Naheed Elias PA-C [address] [place] [address] [place] [address] Physician Wharf Tender Helper Hematology/Oncology 03/22/23 Hull Line Crew Member Relationship Specialty Start Date End Date Charles Bazzi [address] [place], [place] [phone] PCP - General Family Medicine 03/16/23 Colleen Solorio RN [address] [facility] [place] [place] [address] Specialty Vice President Tax Hematology/Oncology 03/22/23 Darnell Corona MD [address] [facility] [place] [address] Physician Hematology/Oncology 03/22/23 Naheed Elias PA-C [address] [facility] [place] [place] [address] Physician Wharf Tender Helper Hematology/Oncology 03/22/23 Hull Line Crew Member Relationship Specialty Start Date End Date Charles Bazzi [address] [place] [phone] PCP - General Family Medicine 03/16/23 Colleen Solorio RN [address] [place] [place] [address] Specialty Vice President Tax Hematology/Oncology 03/22/23 Darnell Corona MD [address] [place] [address] [place] [address] Physician Hematology/Oncology 03/22/23 Naheed Elias PA-C [address] [place] [address] [place] [address] Physician Wharf Tender Helper Hematology/Oncology 03/22/23 Hull Line Crew Member Relationship Specialty Start Date End Date Charles Bazzi [address] [place], [place] [phone] PCP - General Family Medicine 03/16/23 Colleen Solorio RN [address] [facility] [place] [address] Specialty Vice President Tax Hematology/Oncology 03/22/23 Darnell Corona MD [address] [place] [address] [place] [phone] Physician Hematology/Oncology 03/22/23 Naheed Elias PA-C [address] [place] [address] [place] [address] Physician Wharf Tender Helper Hematology/Oncology 03/22/23 Hull Line Crew Member Relationship Specialty Start Date End Date Charles Bazzi [address] [place], [place] [phone] PCP - General Family Medicine 03/16/23 Hull Line Crew Member Relationship Specialty Start Date End Date Charles Bazzi [address] [place] [phone] PCP - General Family Medicine 03/16/23 Colleen Solorio RN [address] [facility] [place] [place] [address] Specialty Vice President Tax Hematology/Oncology 03/22/23 Darnell Corona MD [address] [facility] [place] [address] Physician Hematology/Oncology 03/22/23 Naheed Elias PADesireeC [address] [place], [place] [address] [facility], [place], [facility] [address] Physician Wharf Tender Helper Hematology/Oncology 03/22/23 Hull Line Crew Member Relationship Specialty Start Date End Date Charles Bazzi [address] [place] [phone] PCP - General Family Medicine 03/16/23 Colleen Solorio RN [address] [facility] [place] [address] Specialty Vice President Tax Hematology/Oncology 03/22/23 Darnell Corona MD [facility] [place] [address] Physician Hematology/Oncology 03/22/23 Naheed Elias PA-C [facility], [place] [address] Physician Wharf Tender Helper Hematology/Oncology 03/22/23 Hull Line Crew Member Relationship Specialty Start Date End Date Charles Bazzi [address] [place] [phone] PCP - General Family Medicine 03/16/23 Colleen Solorio RN [address] [facility] [facility] [place] [place] [address] Specialty Vice President Tax Hematology/Oncology 03/22/23 Darnell Corona MD [address] [place], [place] [id number] Physician Hematology/Oncology 03/22/23 Naheed Elias, PA-C [address] [place] [address] [place] [address] Physician Wharf Tender Helper Hematology/Oncology 03/22/23 Hull Line Crew Member Relationship Specialty Start Date End Date Charles Bazzi [address] [place], [place] [phone] PCP - General Family Medicine 03/16/23 Colleen Solorio RN 417 [facility] [facility] [place] [place] [address] Specialty Vice President Tax Hematology/Oncology 03/22/23 Darnell Corona MD [address] [place] [address] [place] [address] Physician Hematology/Oncology 03/22/23 Naheed Elias, PA-C [address] [place] [address] [place] [address] Physician Wharf Tender Helper Hematology/Oncology 03/22/23 Hull Line Crew Member Relationship Specialty Start Date End Date Charles Bazzi [address] [place], [place] [phone] PCP - General Family Medicine 03/16/23 Colleen Solorio RN 417 [address] [facility] [place] [place] [address] Specialty Vice President Tax Hematology/Oncology 03/22/23 Darnell Corona MD [address] [facility] [place] [address] Physician Hematology/Oncology 03/22/23 Naheed Elias PA-C 417 [address] [facility] [place] [address] [place], [facility] Physician Wharf Tender Helper Hematology/Oncology 03/22/23 Hull Line Crew Member Relationship Specialty Start Date End Date Charles Bazzi [address] [place], [place] [phone] PCP - General Family Medicine 03/16/23 Colleen Solorio RN 417 [address] [facility] [place] [address] [place], [facility] Specialty Vice President Tax Hematology/Oncology 03/22/23 Darnell Corona MD 417 [facility] [place] [id number] Physician Hematology/Oncology 03/22/23 Naheed Elias PA-C 417 [address] [facility], [place] [address] [place], [facility] Physician Wharf Tender Helper Hematology/Oncology 03/22/23 Hull Line Crew Member Relationship Specialty Start Date End Date Charles Bazzi [address] [place], [place] [phone] PCP - General Family Medicine 03/16/23 Colleen Solorio RN 417 [address] [facility] [place] [place] [address] Specialty Vice President Tax Hematology/Oncology 03/22/23 Darnell Corona MD 417 [place] [address] Physician Hematology/Oncology 03/22/23 Naheed Elias PA-C [address] [facility] [place] [address] Physician Wharf Tender Helper Hematology/Oncology 03/22/23 Team Status: Inactive Member Role Status Dates Charles Bazzi DO Primary Care Provider Active Delfino Vargas MD Attending Provider Active [employer] Crew Member Relationship Specialty Start Date End Date Charles Bazzi DO PCP - General 10/05/22 Hull Line Crew Member Relationship Specialty Start Date End Date Charles Bazzi [address] [place] [phone] PCP - General Family Medicine 03/16/23 Colleen Solorio RN [address] [facility] [place] [address] Specialty Vice President Tax Hematology/Oncology 03/22/23 Darnell Corona MD 417 [place] [address] Physician Hematology/Oncology 03/22/23 Naheed Elias PA-C [address] [place] [place] [address] Physician Wharf Tender Helper Hematology/Oncology 03/22/23 Maryuri Rodriguez LSW Eviscerator 07/21/23 Hull Line Crew Member Relationship Specialty Start Date End Date Charles Bazzi [address] [place] [phone] PCP - General Family Medicine 03/16/23 Colleen Solorio RN 417 [address] [facility] [place] [place] [address] Specialty Vice President Tax Hematology/Oncology 03/22/23 Darnell Corona MD [address] [facility] [place] [address] Physician Hematology/Oncology 03/22/23 Naheed Elias PA-C [address] [facility] [place] [place] [address] Physician Wharf Tender Helper Hematology/Oncology 03/22/23 Maryuri Rodriguez LSW Eviscerator 07/21/23 Hull Line Crew Member Relationship Specialty Start Date End Date Charles Bazzi [address] [place], [place] [phone] PCP - General Family Medicine 03/16/23 Colleen Solorio RN 417 [address] [facility] [place] [place] [address] Specialty Vice President Tax Hematology/Oncology 03/22/23 Darnell Corona MD [address] [place], [place] [address]ry [facility] [place] [address] Physician Hematology/Oncology 03/22/23 Naheed Elias PA-C [address] [facility] [place] [place] [address] Physician Wharf Tender Helper Hematology/Oncology 03/22/23 Maryuri Rodriguez LSW Eviscerator 07/21/23 Hull Line Crew Member Relationship Specialty Start Date End Date Charles Bazzi [address] [place] [phone] PCP - General Family Medicine 03/16/23 Colleen Solorio RN [address] [facility] [facility] [place] [place] [address] Specialty Vice President Tax Hematology/Oncology 03/22/23 Darnell Corona MD 417 [facility] [place] [address] Physician Hematology/Oncology 03/22/23 Naheed Elias PA-C 417 [facility] [place] [place] [address] Physician Wharf Tender Helper Hematology/Oncology 03/22/23 Maryuri Rodriguez, [employer] Eviscerator 07/21/23 Hull Line Crew Member Relationship Specialty Start Date End Date Charles Bazzi [address] [place], [place] [phone] PCP - General Family Medicine 03/16/23 Colleen Solorio RN 417 [facility] [facility] [place] [place] [address] Specialty Vice President Tax Hematology/Oncology 03/22/23 Darnell Corona MD [address] [place] [address] [place] [address] Physician Hematology/Oncology 03/22/23 Naheed Elias PA-C [address] [facility] [place] [place] [address] Physician Wharf Tender Helper Hematology/Oncology 03/22/23 Maryuri Rodriguez, MARTIN Eviscerator 07/21/23 Hull Line Crew Member Relationship Specialty Start Date End Date Charles Bazzi [address] [place] [phone] PCP - General Family Medicine 03/16/23 Colleen Solorio RN [address] [facility] [place] [place] [address] Specialty Vice President Tax Hematology/Oncology 03/22/23 Darnell Corona MD 417 [facility] [place] [address] Physician Hematology/Oncology 03/22/23 Naheed Elias PA-C [address] [facility] [place] [address] Physician Wharf Tender Helper Hematology/Oncology 03/22/23 Maryuri Rodriguez, [employer] Eviscerator 07/21/23 Hull Line Crew Member Relationship Specialty Start Date End Date Charles Bazzi [address] [place] [phone] PCP - General Family Medicine 03/16/23 Colleen Solorio RN [address] [facility] [place] [address] Specialty Vice President Tax Hematology/Oncology 03/22/23 Darnell Corona MD 417 [facility] [place] [address] Physician Hematology/Oncology 03/22/23 Naheed Elias, [place] [address] [facility] [place] [address] Physician Wharf Tender Helper Hematology/Oncology 03/22/23 Maryuri Rodriguez LSW Eviscerator 07/21/23 Team Status: Inactive Member Role Status Dates Charles Bazzi DO Primary Care Provider Active Sta rt: September 30, 2023 End: October 01, 2023 Patrice Gomez DO Emergency Provider Active Start: September 30, 2023 End: October 01, 2023 Miguel Ángel Delgadillo MD Admit Provider Active Start: September 30, 2023 End: October 01, 2023 Tim Garduno MD Attending Provider Active Start: September 30, 2023 End: October 01, 2023 Delfino Vargas MD Other Provider Active Start: September 30, 2023 End: October 01, 2023 Team Status: Active Member Role Status Dates Charles Bazzi DO Primary Care Provider Active Sta rt: September 30, 2023 Patrice Gomez , Emergency Provider Active Start: September 30, 2023 Miguel Ángel Delgadillo MD Admit Provider, Atte nding Provider, Other Provider Active Start: September 30, 2023 Hull Line Crew Member Relationship Specialty Start Date End Date Charles Bazzi [address] [place] [phone] PCP - General Family Medicine 03/16/23 Colleen Solorio RN [address] [facility] [place] [address] Specialty Vice President Tax Hematology/Oncology 03/22/23 Darnell Corona MD [address] [place] [address] Physician Hematology/Oncology 03/22/23 Naheed Elias, PA-C [address] [place] [address] [place] [address] Physician Wharf Tender Helper Hematology/Oncology 03/22/23 Maryuri Rodriguez LSW Eviscerator 07/21/23 Hull Line Crew Member Relationship Specialty Start Date End Date Charles Bazzi [address] [place] [phone] PCP - General Family Medicine 03/16/23 Colleen Solorio RN [address] [facility] [place] [address] Specialty Vice President Tax Hematology/Oncology 03/22/23 Darnell Corona MD [address] [place] [address] [place] [address] Physician Hematology/Oncology 03/22/23 Naheed Elias PA-C [address] [place] [address] [place] [address] Physician Wharf Tender Helper Hematology/Oncology 03/22/23 Maryuri Rodriguez LSW Eviscerator 07/21/23 Team Status: Active Member Role Status Dates Charles Bazzi DO Primary Care Provider Active Sta rt: September 30, 2023 End: October 01, 2023 Patrice Gomez DO Emergency Provider Active Start: September 30, 2023 End: October 01, 2023 Miguel Ángel Delgadillo MD Admit Provider, Atte nding Provider, Other Provider Active Start: September 30, 2023 End: October 01, 2023 Team Status: Active Member Role Status Dates Charles Bazzi DO Primary Care Provide r, Attending Provider Active Start: October 10, 2023 Team Status: Inactive Member Role Status Dates Charles Bazzi DO Primary Care Provide r, Attending Provider Active Start: October 24, 2023 End: October 24, 2023 Team Status: Active Member Role Status Dates Charles Bazzi DO Primary Care Provider Active Sta rt: October 26, 2023 Mary Al MD Emergency Provider Active Start: October 26, 2023 Patrice Hooks MD Admit Provider, Atte nding Provider Active Start: October 26, 2023 Team Status: Inactive Member Role Status Dates Charles Bazzi DO Primary Care Provider Active Sta rt: October 26, 2023 End: October 28, 2023 Mary Al MD Emergency Provider Active Start: October 26, 2023 End: October 28, 2023 Patrice Hooks MD Admit Provider Active Start: October 26, 2023 End: October 28, 2023 Jm Trujillo DO Attending Provider Active Start: October 26, 2023 End: October 28, 2023 Ion Eckert DO Other Provider Active Start: [facility] 2023 End: October 28, 2023 Team Status: Active Member Role Status Dates Charles Bazzi DO Primary Care Provider Active Sta rt: October 26, 2023 Mary Al MD Emergency Provider Active Start: October 26, 2023 Patrice Hooks MD Admit Provider, Other Provider Act libby Start: October 26, 2023 Ethel Saucedo APRN Attending Provider Active S tart: October 26, 2023 Hull Line Crew Member Relationship Specialty Start Date End Date Charles Bazzi [address] [place] [phone] PCP - General Family Medicine 03/16/23 Colleen Solorio RN [address] [facility] [place] [place] [address] Specialty Vice President Tax Hematology/Oncology 03/22/23 Darnell Corona MD 417 [facility] [place] [address] Physician Hematology/Oncology 03/22/23 Naheed Elias PA-C [address] [place] [address] [place] [address] Physician Wharf Tender Helper Hematology/Oncology 03/22/23 Maryuri Rodriguez LSW Eviscerator 07/21/23 Hull Line Crew Member Relationship Specialty Start Date End Date Charles Bazzi [address] [place] [phone] PCP - General Family Medicine 03/16/23 Colleen Solorio RN [address] [facility] [place] [place] [address] Specialty Vice President Tax Hematology/Oncology 03/22/23 Darnell Corona MD 417 [facility] [place] [address] Physician Hematology/Oncology 03/22/23 Naheed Elias PA-C [address] [facility] [place] [place] [address] Physician Wharf Tender Helper Hematology/Oncology 03/22/23 Maryuri Rodriguez LSW Eviscerator 07/21/23 Hull Line Crew Member Relationship Specialty Start Date End Date Charles Bazzi [address] [place] [phone] PCP - General Family Medicine 03/16/23 Colleen Solorio RN [address] [facility] [place] [place] [address] Specialty Vice President Tax Hematology/Oncology 03/22/23 Darnell Corona MD [address] [facility] [place] [address] Physician Hematology/Oncology 03/22/23 Naheed Elias PA-C [address] [facility] [place] [place] [address] Physician Wharf Tender Helper Hematology/Oncology 03/22/23 Maryuri Rodriguez LSW Eviscerator 07/21/23 Hull Line Crew Member Relationship Specialty Start Date End Date Charles Bazzi [address] [place] [phone] PCP - General Family Medicine 03/16/23 Colleen Solorio RN [address] [facility] [place] [place] [address] Specialty Vice President Tax Hematology/Oncology 03/22/23 Darnell Corona MD [address] [facility] [place] [address] Physician Hematology/Oncology 03/22/23 Naheed Elias PA-C [address] [facility] [place] [place] [address] Physician Wharf Tender Helper Hematology/Oncology 03/22/23 Maryuri Rodriguez LSW Eviscerator 07/21/23 Hull Line Crew Member Relationship Specialty Start Date End Date Charles Bazzi [address] [place] [phone] PCP - General Family Medicine 03/16/23 Colleen Solorio RN [address] [facility] [place] [place] [address] Specialty Vice President Tax Hematology/Oncology 03/22/23 Darnell Corona MD [address] [place] [address] [place] [address] Physician Hematology/Oncology 03/22/23 Naheed Elias PA-C [address] [place] [address] [place] [address] Physician Wharf Tender Helper Hematology/Oncology 03/22/23 Maryuri Rodriguez LSW Eviscerator 07/21/23 Hull Line Crew Member Relationship Specialty Start Date End Date Charles Bazzi [address] [place] [phone] PCP - General Family Medicine 03/16/23 Colleen Solorio RN [address] [facility] [place] [place] [address] Specialty Vice President Tax Hematology/Oncology 03/22/23 Darnell Corona MD [address] [place] [address] [place] [address] Physician Hematology/Oncology 03/22/23 Naheed Elisa PA-C [address] [place] [address] [place] [address] Physician Wharf Tender Helper Hematology/Oncology 03/22/23 Maryuri Rodriguez LSW Eviscerator 07/21/23 Hull Line Crew Member Relationship Specialty Start Date End Date Charles Bazzi [address] [place] [phone] PCP - General Family Medicine 03/16/23 Darnell Corona MD [address] [place] [address] Physician Hematology/Oncology 03/22/23 Naheed Elias PA-C [address] [place] [address] [place] [address] Physician Wharf Tender Helper Hematology/Oncology 03/22/23 Maryuri Rodriguez LSW Eviscerator 07/21/23 Goals (unrecognized section and content) Goals may be documented in a n alternate section Source Comments (unrecognize d section and content) In the event this informatio n is protected by the Federal Confidentiality of Alcohol and Drug Abuse Patient Records regulations: The Federal rules restrict any use of the information to criminally investigate or prosecute any alcohol or drug abuse patient.[facility] Center[facility] the event this information is protected by the Federal Confidentiality of Alcohol and Drug Abuse Patient Records regulations: The Federal rules restrict any use of the information to criminally investigate or prosecute any alcohol or drug abuse patient.[facility] CenterIn the event this information is protected by the Federal Confidentiality of Alcohol and Drug Abuse Patient Records regulations: The Federal rules restrict any use of the information to criminally investigate or prosecute any alcohol or drug abuse patient.[facility] CenterIn the event this information is protected by the Federal Confidentiality of Alcohol and Drug Abuse Patient Records regulations: The Federal rules restrict any use of the information to criminally investigate or prosecute any alcohol or drug abuse patient.[facility] CenterIn the event this information is protected by the Federal Confidentiality of Alcohol and Drug Abuse Patient Records regulations: The Federal rules restrict any use of the information to criminally investigate or prosecute any alcohol or drug abuse patient.[facility] CenterIn the event this information is protected by the Federal Confidentiality of Alcohol and Drug Abuse Patient Records regulations: The Federal rules restrict any use of the information to criminally investigate or prosecute any alcohol or drug abuse patient.[facility] CenterIn the event this information is protected by the Federal Confidentiality of Alcohol and Drug Abuse Patient Records regulations: The Federal rules restrict any use of the information to criminally investigate or prosecute any alcohol or drug abuse patient.[facility] CenterIn the event this information is protected by the Federal Confidentiality of Alcohol and Drug Abuse Patient Records regulations: The Federal rules restrict any use of the information to criminally investigate or prosecute any alcohol or drug abuse patient.[facility] CenterIn the event this information is protected by the Federal Confidentiality of Alcohol and Drug Abuse Patient Records regulations: The Federal rules restrict any use of the information to criminally investigate or prosecute any alcohol or drug abuse patient.[facility] CenterIn the event this information is protected by the Federal Confidentiality of Alcohol and Drug Abuse Patient Records regulations: The Federal rules restrict any use of the information to criminally investigate or prosecute any alcohol or drug abuse patient.[facility] CenterIn the event this information is protected by the Federal Confidentiality of Alcohol and Drug Abuse Patient Records regulations: The Federal rules restrict any use of the information to criminally investigate or prosecute any alcohol or drug abuse patient.[facility] CenterIn the event this information is protected by the Federal Confidentiality of Alcohol and Drug Abuse Patient Records regulations: The Federal rules restrict any use of the information to criminally investigate or prosecute any alcohol or drug abuse patient.[facility] CenterIn the event this information is protected by the Federal Confidentiality of Alcohol and Drug Abuse Patient Records regulations: The Federal rules restrict any use of the information to criminally investigate or prosecute any alcohol or drug abuse patient.[facility] CenterIn the event this information is protected by the Federal Confidentiality of Alcohol and Drug Abuse Patient Records regulations: The Federal rules restrict any use of the information to criminally investigate or prosecute any alcohol or drug abuse patient.[facility] CenterIn the event this information is protected by the Federal Confidentiality of Alcohol and Drug Abuse Patient Records regulations: The Federal rules restrict any use of the information to criminally investigate or prosecute any alcohol or drug abuse patient.[facility] CenterIn the event this information is protected by the Federal Confidentiality of Alcohol and Drug Abuse Patient Records regulations: The Federal rules restrict any use of the information to criminally investigate or prosecute any alcohol or drug abuse patient.[facility] CenterIn the event this information is protected by the Federal Confidentiality of Alcohol and Drug Abuse Patient Records regulations: The Federal rules restrict any use of the information to criminally investigate or prosecute any alcohol or drug abuse patient.[facility] CenterIn the event this information is protected by the Federal Confidentiality of Alcohol and Drug Abuse Patient Records regulations: The Federal rules restrict any use of the information to criminally investigate or prosecute any alcohol or drug abuse patient.[facility] CenterIn the event this information is protected by the Federal Confidentiality of Alcohol and Drug Abuse Patient Records regulations: The Federal rules restrict any use of the information to criminally investigate or prosecute any alcohol or drug abuse patient.[facility] CenterIn the event this information is protected by the Federal Confidentiality of Alcohol and Drug Abuse Patient Records regulations: The Federal rules restrict any use of the information to criminally investigate or prosecute any alcohol or drug abuse patient.[facility] CenterIn the event this information is protected by the Federal Confidentiality of Alcohol and Drug Abuse Patient Records regulations: The Federal rules restrict any use of the information to criminally investigate or prosecute any alcohol or drug abuse patient.[facility] CenterIn the event this information is protected by the Federal Confidentiality of Alcohol and Drug Abuse Patient Records regulations: The Federal rules restrict any use of the information to criminally investigate or prosecute any alcohol or drug abuse patient.[facility] CenterIn the event this information is protected by the Federal Confidentiality of Alcohol and Drug Abuse Patient Records regulations: The Federal rules restrict any use of the information to criminally investigate or prosecute any alcohol or drug abuse patient.[facility] CenterIn the event this information is protected by the Federal Confidentiality of Alcohol and Drug Abuse Patient Records regulations: The Federal rules restrict any use of the information to criminally investigate or prosecute any alcohol or drug abuse patient.[facility] CenterIn the event this information is protected by the Federal Confidentiality of Alcohol and Drug Abuse Patient Records regulations: The Federal rules restrict any use of the information to criminally investigate or prosecute any alcohol or drug abuse patient.[facility] CenterIn the event this information is protected by the Federal Confidentiality of Alcohol and Drug Abuse Patient Records regulations: The Federal rules restrict any use of the information to criminally investigate or prosecute any alcohol or drug abuse patient.[facility] CenterIn the event this information is protected by the Federal Confidentiality of Alcohol and Drug Abuse Patient Records regulations: The Federal rules restrict any use of the information to criminally investigate or prosecute any alcohol or drug abuse patient.[facility] CenterIn the event this information is protected by the Federal Confidentiality of Alcohol and Drug Abuse Patient Records regulations: The Federal rules restrict any use of the information to criminally investigate or prosecute any alcohol or drug abuse patient.[facility] CenterIn the event this information is protected by the Federal Confidentiality of Alcohol and Drug Abuse Patient Records regulations: The Federal rules restrict any use of the information to criminally investigate or prosecute any alcohol or drug abuse patient.[facility] CenterIn the event this information is protected by the Federal Confidentiality of Alcohol and Drug Abuse Patient Records regulations: The Federal rules restrict any use of the information to criminally investigate or prosecute any alcohol or drug abuse patient.[facility] CenterIn the event this information is protected by the Federal Confidentiality of Alcohol and Drug Abuse Patient Records regulations: The Federal rules restrict any use of the information to criminally investigate or prosecute any alcohol or drug abuse patient.[facility] CenterIn the event this information is protected by the Federal Confidentiality of Alcohol and Drug Abuse Patient Records regulations: The Federal rules restrict any use of the information to criminally investigate or prosecute any alcohol or drug abuse patient.[facility] CenterIn the event this information is protected by the Federal Confidentiality of Alcohol and Drug Abuse Patient Records regulations: The Federal rules restrict any use of the information to criminally investigate or prosecute any alcohol or drug abuse patient.[facility] CenterIn the event this information is protected by the Federal Confidentiality of Alcohol and Drug Abuse Patient Records regulations: The Federal rules restrict any use of the information to criminally investigate or prosecute any alcohol or drug abuse patient.[facility] CenterIn the event this information is protected by the Federal Confidentiality of Alcohol and Drug Abuse Patient Records regulations: The Federal rules restrict any use of the information to criminally investigate or prosecute any alcohol or drug abuse patient.[facility] CenterIn the event this information is protected by the Federal Confidentiality of Alcohol and Drug Abuse Patient Records regulations: The Federal rules restrict any use of the information to criminally investigate or prosecute any alcohol or drug abuse patient.[facility] CenterIn the event this information is protected by the Federal Confidentiality of Alcohol and Drug Abuse Patient Records regulations: The Federal rules restrict any use of the information to criminally investigate or prosecute any alcohol or drug abuse patient.[facility] CenterIn the event this information is protected by the Federal Confidentiality of Alcohol and Drug Abuse Patient Records regulations: The Federal rules restrict any use of the information to criminally investigate or prosecute any alcohol or drug abuse patient.[facility] CenterIn the event this information is protected by the Federal Confidentiality of Alcohol and Drug Abuse Patient Records regulations: The Federal rules restrict any use of the information to criminally investigate or prosecute any alcohol or drug abuse patient.[facility] CenterIn the event this information is protected by the Federal Confidentiality of Alcohol and Drug Abuse Patient Records regulations: The Federal rules restrict any use of the information to criminally investigate or prosecute any alcohol or drug abuse patient.[facility] CenterIn the event this information is protected by the Federal Confidentiality of Alcohol and Drug Abuse Patient Records regulations: The Federal rules restrict any use of the information to criminally investigate or prosecute any alcohol or drug abuse patient.[facility] CenterIn the event this information is protected by the Federal Confidentiality of Alcohol and Drug Abuse Patient Records regulations: The Federal rules restrict any use of the information to criminally investigate or prosecute any alcohol or drug abuse patient.[facility] CenterIn the event this information is protected by the Federal Confidentiality of Alcohol and Drug Abuse Patient Records regulations: The Federal rules restrict any use of the information to criminally investigate or prosecute any alcohol or drug abuse patient.[facility] CenterIn the event this information is protected by the Federal Confidentiality of Alcohol and Drug Abuse Patient Records regulations: The Federal rules restrict any use of the information to criminally investigate or prosecute any alcohol or drug abuse patient.[facility] CenterIn the event this information is protected by the Federal Confidentiality of Alcohol and Drug Abuse Patient Records regulations: The Federal rules restrict any use of the information to criminally investigate or prosecute any alcohol or drug abuse patient.[facility] CenterIn the event this information is protected by the Federal Confidentiality of Alcohol and Drug Abuse Patient Records regulations: The Federal rules restrict any use of the information to criminally investigate or prosecute any alcohol or drug abuse patient.[facility] CenterIn the event this information is protected by the Federal Confidentiality of Alcohol and Drug Abuse Patient Records regulations: The Federal rules restrict any use of the information to criminally investigate or prosecute any alcohol or drug abuse patient.[facility] CenterIn the event this information is protected by the Federal Confidentiality of Alcohol and Drug Abuse Patient Records regulations: The Federal rules restrict any use of the information to criminally investigate or prosecute any alcohol or drug abuse patient.[facility] CenterIn the event this information is protected by the Federal Confidentiality of Alcohol and Drug Abuse Patient Records regulations: The Federal rules restrict any use of the information to criminally investigate or prosecute any alcohol or drug abuse patient.[facility] CenterIn the event this information is protected by the Federal Confidentiality of Alcohol and Drug Abuse Patient Records regulations: The Federal rules restrict any use of the information to criminally investigate or prosecute any alcohol or drug abuse patient.[facility] CenterIn the event this information is protected by the Federal Confidentiality of Alcohol and Drug Abuse Patient Records regulations: The Federal rules restrict any use of the information to criminally investigate or prosecute any alcohol or drug abuse patient.[facility] CenterIn the event this information is protected by the Federal Confidentiality of Alcohol and Drug Abuse Patient Records regulations: The Federal rules restrict any use of the information to criminally investigate or prosecute any alcohol or drug abuse patient.[facility] CenterIn the event this information is protected by the Federal Confidentiality of Alcohol and Drug Abuse Patient Records regulations: The Federal rules restrict any use of the information to criminally investigate or prosecute any alcohol or drug abuse patient.[facility] CenterIn the event this information is protected by the Federal Confidentiality of Alcohol and Drug Abuse Patient Records regulations: The Federal rules restrict any use of the information to criminally investigate or prosecute any alcohol or drug abuse patient.[facility] CenterIn the event this information is protected by the Federal Confidentiality of Alcohol and Drug Abuse Patient Records regulations: The Federal rules restrict any use of the information to criminally investigate or prosecute any alcohol or drug abuse patient.[facility] CenterIn the event this information is protected by the Federal Confidentiality of Alcohol and Drug Abuse Patient Records regulations: The Federal rules restrict any use of the information to criminally investigate or prosecute any alcohol or drug abuse patient.[facility] CenterIn the event this information is protected by the Federal Confidentiality of Alcohol and Drug Abuse Patient Records regulations: The Federal rules restrict any use of the information to criminally investigate or prosecute any alcohol or drug abuse patient.[facility] CenterIn the event this information is protected by the Federal Confidentiality of Alcohol and Drug Abuse Patient Records regulations: The Federal rules restrict any use of the information to criminally investigate or prosecute any alcohol or drug abuse patient.[facility] CenterIn the event this information is protected by the Federal Confidentiality of Alcohol and Drug Abuse Patient Records regulations: The Federal rules restrict any use of the information to criminally investigate or prosecute any alcohol or drug abuse patient.[facility] CenterIn the event this information is protected by the Federal Confidentiality of Alcohol and Drug Abuse Patient Records regulations: The Federal rules restrict any use of the information to criminally investigate or prosecute any alcohol or drug abuse patient.[facility] CenterIn the event this information is protected by the Federal Confidentiality of Alcohol and Drug Abuse Patient Records regulations: The Federal rules restrict any use of the information to criminally investigate or prosecute any alcohol or drug abuse patient.[facility] FOR RECORDS PERTAINING TO PATIENTS WHO ARE OR HAVE BEEN ENROLLED IN A CHEMICAL DEPENDENCY/SUBSTANCEABUSE PROGRAM, SOME INFORMATION MAY BE OMITTED. This clinical summary was aggregated from multiple sources. Caution should be exercised in using it in the provision of clinical care. This summary normalizes information from multiple sources, and as a consequence, information in this document may materially change the coding, format and clinical context of patient data. In addition, data may be omitted in some cases. CLINICAL DECISIONS SHOULD BE BASED ON THE PRIMARY CLINICAL RECORDS. [facility] [employer] [facility]. provides no warranty or guarantee of the accuracy or completeness of information in this document.
[2024-02-27 14:10] LABS: Age Gdln ACOG Testing Note (.); Pap IG (Image Guided) Note (.)
== END 2024-02-21 20:27 | disposition home or self-care (01) ==
LOC: LAB 20:26
PROVIDERS: PCP Family Medicine; Visit Provider Physician Assistant
DX: Z01.419 Encounter for gynecological examination (general) (routine) without abnormal findings (principal)
CPT/HCPCS: 88175

== ENCOUNTER 2024-03-04 13:46 | Outpatient (OUT) | payer MEDICARE, OTHER, SELFPAY ==
--- NOTE | 2024-03-04 14:45 | P.CN_ITS ---
Consult Note: HPI Data of Consult Patient: new to practice Consult date: 02/26/24 Requesting Physician: Priscilla Robledo MD Primary Care Provider: CHARLES BAZZI Consult Narrative Reason for consult: left knee pain Narrative: 68yof who presents for evaluation. longstanding left knee pain. imaging with arthritis throughout left knee. has tried injections of steroid and hyaluronic acid, without lasting relief. was told she needs replacement, but has recently been dealing with other medical issues, so postponing replacement. engages in a series of provider directed home exercises >6 weeks, without lasting benefit. denies adverse med side effects. cc:: CC: Priscilla Robledo MD Review of Systems ROS Status of ROS 10 or more systems reviewed and unremark able except as noted in history and below Meds Home Medications and Allergies Allergies Allergy/AdvReac Type Severity Reaction Status Date / Time No Known Drug Allergies Allergy Verified 07/07/23 12:41 Exam Narrative Exam Narrative: Psych-alert and oriented x 3.? Attentive and appropriate, constitutionally normal, displays normal mood and affect per situation.? There are no obvious deficits in memory, reasoning, or intellect. Extremities-lower extremities are warm with minimal edema and palpable pulses. Knee-examination of the left knee reveals tenderness to palpation over the superior, inferior, lateral, and medial aspect of the knee.? Some swelling is noted without erythema. Pain is elicited with flexion and extension of the knee both actively and passively.? Some grinding is noted with these motions.? There is no notable ligamental laxity or instability.? Coordination remains intact.? Gait remains antalgic. Assessment and Plan Assessment and Plan (1) Unilateral primary osteoarthritis, left knee: Plan 68yof who presents for evaluation. failed conservative measures, as noted. imaging reviewed, as noted. given symptoms and imaging, prudent to attempt left genicular nerve blocks under fluoroscopic guidance. may even be candidate for radiofrequency ablation. she is in agreement. meds reviewed, no changes. follow up after procedure.
== END 2024-03-04 13:47 | disposition home or self-care (01) ==
PROVIDERS: PCP Family Medicine; Visit Provider Anesthesiology
DX: M17.12 Unilateral primary osteoarthritis, left knee (principal)
CPT/HCPCS: G0463

== ENCOUNTER 2024-03-08 07:35 | Outpatient (RCR) | payer MEDICARE, OTHER, SELFPAY ==
[2024-03-08 09:50] VITALS: BP 144/79; PULSE 62; TEMP 37.6; O2SAT 99
[2024-03-08] MEDS: DENOSUMAB 60 MG/ML SYRINGE SQ (10:10)
--- NOTE | 2024-03-08 13:14 | PC.NURSE ---
0950: Pt. to [facility] amb. for Prolia injection. Seated in recliner. VSS. Denies c/o. 1010: Medicated with Prolia as instructed, no bleeding to site. Pt. tolerated without c/o. 1020: D/c'd amb. to home.
== END 2024-03-09 23:59 | disposition home or self-care (01) ==
LOC: INF 07:35
PROVIDERS: PCP Family Medicine; Visit Provider Obstetrics & Gynecology
DX: M85.80 Other specified disorders of bone density and structure, unspecified site (principal)
CPT/HCPCS: 96372; J0897

== ENCOUNTER 2024-03-18 09:52 | Day surgery (SDC) | payer MEDICARE, OTHER, SELFPAY ==
[2024-03-18 10:28] VITALS: BP 147/88; PULSE 77; TEMP 36.3; O2SAT 97
[2024-03-18 11:10] VITALS: BP 153/76; BP 159/77; PULSE 64; PULSE 70; O2SAT 94
[2024-03-18] MEDS: BUPIVACAINE HCL 0.25% PF 25 MG/10 ML VIAL 5 ML INJ (11:12)
[2024-03-18] MEDS: TRIAMCINOLONE ACETONIDE 40 MG/ML VIAL INJ (11:12)
--- NOTE | 2024-03-18 11:12 | W.PM.PROCNOT ---
Date of procedure: 03/18/24 Pre-op diagnosis: Pain due to left knee osteoarthritis Post-op diagnosis: same as pre-op Procedure: Procedure: Left knee genicular nerve block Medications: Bupivacaine 0.25% 4cc, kenalog 40mg The patient was taken to the procedures suite and positioned in the supine position. I explained the details of the procedure to the patient including the risks, benefits and alternatives. We had an informed discussion and the patient verbalized understanding and signed the consent form. All questions were answered appropriately.? A 'time out' procedure was performed. The patient was identified, the chart was reviewed, and all allergies were confirmed. Laterality was conducted and marked. The left knee was marked with a sterile marking pen, prepped times three with alcohol, and sterilely draped.? Under fluoroscopic guidance, branches of the genicular nerves were localized.? First the superior medial genicular nerve was localized where the femoral shaft meets the medial epicondyle.? Skin was anesthetized with 1% lidocaine.? A 25-gauge 3.5 in needle was advanced in a coaxial manner in the AP view.? This was repeated on the superior lateral genicular nerve where the femoral shaft meets the lateral epicondyle and the inferior medial genicular nerve where the medial tibal shaft meets the tibial epicondyle. After negative aspiration for blood or other bodily fluids, 1cc of 0.25% bupivacaine was injected at each of the three sites. The needles were removed and the sites of injection were bandaged. The patient was transported to the postoperative area in good condition. Anesthesia: Local Surgeon: Priscilla Robledo Pathology: none sent Condition: stable Disposition: no change
== END 2024-03-18 11:16 | disposition home or self-care (01) ==
PROVIDERS: PCP Family Medicine; Visit Provider Anesthesiology
DX: M17.12 Unilateral primary osteoarthritis, left knee (principal)
CPT/HCPCS: 64454; J0665; J3301

== ENCOUNTER 2024-03-25 12:41 | Outpatient (OUT) | payer MEDICARE, OTHER, SELFPAY ==
--- NOTE | 2024-03-25 13:04 | PM.CN ---
Consult Note: HPI Data of Consult Patient: known to practice within the last 3 years Consult date: 03/25/24 Requesting Physician: Priscilla Robledo MD Primary Care Provider: CHARLES BAZZI Consult Narrative Reason for consult: left knee pain Narrative: 68yof who presents for assessment. recently underwent left genicular nerve blocks and notes significant relief of 90% that continues. states that this is least amount of knee pain she has had in years. continues to stay very active at home. cc:: CC: Priscilla Robledo MD Review of Systems ROS Status of ROS 10 or more systems reviewed and unremarkable except as noted in history and below [facility] Medical History (Updated 03/05/24 @ 15:47 by Madison Rodriguez) H/O malignant neoplasm of colon ?Z85.038 - Personal history of other malignant neoplasm of large intestine (ICD-10) Osteoarthritis ?M19.90 - Unspecified osteoarthritis, unspecified site (ICD-10) Heartburn ?R12 - Heartburn (ICD-10) Acid reflux ?K21.9 - Gastro-esophageal reflux disease without esophagitis (ICD-10) Hypertension ?I10 - Essential (primary) hypertension (ICD-10) Surgical History H/O major abdominal surgery ?Z98.890 - Other specified postprocedural states (ICD-10) S/P total knee arthroplasty ?Z96.659 - Presence of unspecified artificial knee joint (ICD-10) Meds Home Medications and Allergies Home Medications ?Medication ?Instructions ?Recorded ?Confirmed ?Type Bacillus coagulans 2 billion cap PO 03/04/24 History cell-calcium 140 mg capsule (Digestive Advantage Probiotic) aspirin 81 mg tablet,delayed 81 mg PO DAILY 03/04/24 03/18/24 History release (Adult Low Dose Aspirin) meloxicam 15 mg tablet 15 mg PO DAILY 03/04/24 03/18/24 History omeprazole 40 mg capsule,delayed 40 mg PO DAILY 03/04/24 03/18/24 History release oxybutynin chloride 15 mg 15 mg PO DAILY 03/04/24 03/18/24 History tablet,extended release 24 hr vortioxetine 10 mg tablet 10 mg PO DAILY 03/04/24 03/18/24 History (Trintellix) Allergies Allergy/AdvReac Type Severity Reaction Status Date / Time No Known Drug Allergies Allergy Verified 03/18/24 10:27 Exam Narrative Exam Narrative: Psych-alert and oriented x 3.? Attentive and appropriate, constitutionally normal, displays normal mood and affect per situation.? There are no obvious deficits in memory, reasoning, or intellect. Extremities-lower extremities are warm with minimal edema and palpable pulses. Knee-examination of the left knee reveals tenderness to palpation over the superior, inferior, lateral, and medial aspect of the knee.? Some swelling is noted without erythema. Pain is elicited with flexion and extension of the knee both actively and passively.? Some grinding is noted with these motions.? There is no notable ligamental laxity or instability.? Coordination remains intact.? Gait remains antalgic. Assessment and Plan Assessment and Plan (1) Unilateral primary osteoarthritis, left knee: Plan 68yof who presents for assessment. has had significant benefit from left genicular nerve blocks. discussed that at some point in time, pain may return, and we could reassess at that point. would likely benefit from left genicular nerve rfa. she expressed understanding. meds reviewed, no changes. follow up as needed.
== END 2024-03-25 12:42 | disposition home or self-care (01) ==
LOC: PM 12:41
PROVIDERS: PCP Family Medicine; Visit Provider Anesthesiology
DX: M17.12 Unilateral primary osteoarthritis, left knee (principal)
CPT/HCPCS: G0463

== ENCOUNTER 2024-04-23 12:44 | Outpatient (OUT) | payer MEDICARE, OTHER, SELFPAY ==
--- NOTE | 2024-04-23 12:49 | MM_ITS ---
Patient Name: EVAN GILL MR#: [id number] : 1955 Exam Date: 04/23/2024 Ordering Doctor: DR Jairon Pisano . RADIOLOGY REPORT PROCEDURE: MM TOMOSYNTHESIS SCREENING BI COMPARISON: MG MAMM SCREEN JAYA W CAD, 11/25/2016. MG MAMM SCREEN JAYA W CAD, 05/20/2022. INDICATIONS: Screening for malignant neoplasm Calculator Name NCI Breast Cancer Risk Assessment Tool 5 Year Breast Cancer Risk 1.50% Lifetime Breast Cancer Risk 4.50% Personal Breast Cancer No Personal Ovarian Cancer No Treatments None Family Cancers None LOCATION: [facility] BREAST COMPOSITION: There are scattered areas of fibroglandular density. FINDINGS: DIAGNOSTIC CATEGORY 2--BENIGN FINDING. NO CHANGE FROM COMPARISON. Scattered benign-appearing calcifications are present. Scattered benign-appearing lymph nodes are present. RIGHT BREAST: No significant suspicious finding. LEFT BREAST: No significant suspicious finding. Focal asymmetry upper outer quadrant RECOMMENDATIONS: ROUTINE MAMMOGRAM AND CLINICAL EVALUATION IN 12 MONTHS. PLEASE NOTE: A NORMAL MAMMOGRAM DOES NOT EXCLUDE THE POSSIBILITY OF BREAST CANCER. A CLINICALLY SUSPICIOUS PALPABLE LUMP SHOULD BE BIOPSIED. Dictated by: Kennedy Padilla MD on 04/23/2024 at 13:50 Approved by: Kennedy Padilla MD on 04/23/2024 at 13:52
== END 2024-04-23 12:45 | disposition home or self-care (01) ==
LOC: MAMMO 12:44
PROVIDERS: PCP Family Medicine; Visit Provider Obstetrics & Gynecology
DX: Z12.31 Encounter for screening mammogram for malignant neoplasm of breast (principal)
CPT/HCPCS: 77063; 77067

== ENCOUNTER 2024-05-21 07:52 | Emergency (ER) | payer MEDICARE, OTHER, SELFPAY ==
[2024-05-21 07:56] VITALS: BP 135/87; PULSE 71; TEMP 37; O2SAT 100; BMI 24.6
--- NOTE | 2024-05-21 08:18 | PC.NURSE ---
Dr. Madera bedside at this time for digital nerve block.
[2024-05-21] MEDS: LIDOCAINE HCL 1% 100 MG/10 ML MDV INJ (08:29)
[2024-05-21] MEDS: SULFAMETHOXAZOLE/TRIMETHOPRIM 800-160 MG TABLET 1 TAB PO (09:07)
[2024-05-21] MEDS: CEPHALEXIN 500 MG CAPSULE PO (09:07)
--- NOTE | 2024-05-21 12:09 | ED_ITS ---
HPI HPI - General Adult General Chief complaint: Extremity Problem, Nontraumatic Stated complaint: RIGHT HAND SWELLING Time Seen by Provider: 05/21/24 08:10 Source: patient Mode of arrival: walk-in History of Present Illness HPI narrative: Patient presents ED complaining of right middle finger pain and swelling. She has swelling at the DIP joint and around the cuticle of the right middle finger. She does have some swelling extending throughout the rest of the finger. None onto the hand or into the wrist. No fevers. She said it started yesterday and got a lot worse throughout the night. She said it is severely painful and she has pain with range of motion. She has never had any infection in her finger before. Denies history of herpetic samreen. Patient states she could not really take the pain anymore so she came in for further evaluation. Related Data Home Medications ?Medication ?Instructions ?Recorded ?Confirmed Bacillus coagulans 2 billion cap PO DAILY gut health 03/04/24 cell-calcium 140 mg capsule (Digestive Advantage Probiotic) aspirin 81 mg tablet,delayed 81 mg PO DAILY 03/04/24 05/21/24 release (Adult Low Dose Aspirin) meloxicam 15 mg tablet 15 mg PO DAILY 03/04/24 05/21/24 omeprazole 40 mg capsule,delayed 40 mg PO DAILY 03/04/24 05/21/24 release oxybutynin chloride 15 mg 15 mg PO DAILY 03/04/24 05/21/24 tablet,extended release 24 hr vortioxetine 10 mg tablet 10 mg PO DAILY 03/04/24 05/21/24 (Trintellix) Previous Rx's ?Medication ?Instructions ?Recorded cephalexin 500 mg capsule 500 mg PO BID 10 days #20 caps 05/21/24 oxycodone-acetaminophen 5 mg-325 1 tab PO Q6H 4 days #16 tabs 05/21/24 mg tablet (Percocet) sulfamethoxazole 800 1 tab PO Q12H 10 days #20 tabs 05/21/24 mg-trimethoprim 160 mg tablet (Bactrim DS) Allergies Allergy/AdvReac Type Severity Reaction Status Date / Time No Known Drug Allergies Allergy Verified 05/21/24 08:00 Opioid HPI Opioid Management Most Recent Opioid Data: Last Pain Scale 8 05/21/24 08:06 05/21/24 Review of Systems ROS Status of ROS 10 or more systems reviewed and unremark able except as noted in history and below [facility] [place] Medical History (Updated 05/21/24 @ 08:45 by Delphine Madera DO) H/O malignant neoplasm of colon ?Z85.038 - Personal history of other malignant neoplasm of large intestine (ICD-10) Osteoarthritis ?M19.90 - Unspecified osteoarthritis, unspecified site (ICD-10) Heartburn ?R12 - Heartburn (ICD-10) Acid reflux ?K21.9 - Gastro-esophageal reflux disease without esophagitis (ICD-10) Hypertension ?I10 - Essential (primary) hypertension (ICD-10) Surgical History H/O major abdominal surgery ?Z98.890 - Other specified postprocedural states (ICD-10) S/P total knee arthroplasty ?Z96.659 - Presence of unspecified artificial knee joint (ICD-10) Social History Little interest or pleasure in doing things: not at all Feeling down, depressed, or hopeless: not at all Exam Narrative Exam Narrative: General: alert, no acute distress Cardiovascular: regular rate and rhythm, normal peripheral perfusion. Respiratory: Lungs CTA, respirations non labored. Extremities: Diffuse swelling in the right middle finger worse at the DIP joint. Erythema and pain with range of motion. No swelling into the hand or wrist. No lymphangitis in the arm. Neurological: oriented x 4, LOC appropriate for age. Constitutional Vital Signs, click to edit/add: Last Vital Signs Temp 98.6 F 05/21/24 07:56 Pulse 71 05/21/24 07:56 Resp 16 05/21/24 07:56 BP 135/87 05/21/24 07:56 Pulse Ox 100 05/21/24 07:56 O2 Del Method Room Air 05/21/24 07:56 Course Vital Signs Vital signs: Vital Signs Temperature 98.6 F 05/21/24 07:56 Pulse Rate 71 05/21/24 07:56 Respiratory Rate 16 05/21/24 07:56 Blood Pressure 135/87 05/21/24 07:56 Pulse Oximetry 100 05/21/24 07:56 Oxygen Delivery Method Room Air 05/21/24 07:56 Temperature 98.6 F 05/21/24 07:56 Pulse Rate 71 05/21/24 07:56 Respiratory Rate 16 05/21/24 07:56 Blood Pressure 135/87 05/21/24 07:56 Pulse Oximetry 100 05/21/24 07:56 Oxygen Delivery Method Room Air 05/21/24 07:56 Medical Decision Making MDM Narrative Medical decision making narrative: Patient has a paronychia that was drained. A digital block was performed and an 11 blade was used to incise the area of fluctuance. Mostly blood and some fluid were released from the swelling. No pus had drained. Tissue mostly indurated. The swelling improved slightly however still swollen. Patient was started on antibiotics here and given strict instructions to return immediately to the emergency room if it is not improving over the next day or 2. Return immediat socorro if you are not keeping down the antibiotics or if you spike any fevers or if there is any redness streaking up into the hand wrist or arm. Patient is agreeable. She was offered admission as well for IV antibiotics but states she would prefer to try to treat this at home and come back if she gets worse. I told her to make a follow-up appointment with her primary doctor to make sure this is improving. Patient is comfortable with care plan for home. Differential Diagnosis Differential Diagnosis: Paronychia, tenosynovitis, felon cellulitis Discharge Plan Discharge Chief Complaint: Extremity Problem, Nontraumatic Clinical Impression: Paronychia Patient Disposition: Home, Self-Care Time of Disposition Decision: 08:45 Condition: Good Mode of Transportation: Private Vehicle Prescriptions / Home Meds: New sulfamethoxazole-trimethoprim [Bactrim DS] 800-160 mg tablet 1 tab PO Q12H 10 Days Qty: 20 0RF oxycodone-acetaminophen [Percocet] 5-325 mg tablet 1 tab PO Q6H 4 Days Qty: 16 0RF cephalexin 500 mg capsule 500 mg PO BID 10 Days Qty: 20 0RF No Action Trintellix 10 mg tablet 10 mg PO DAILY omeprazole 40 mg capsule,delayed release(DR/EC) 40 mg PO DAILY oxybutynin chloride 15 mg tablet extended release 24hr 15 mg PO DAILY meloxicam 15 mg tablet 15 mg PO DAILY aspirin [Adult Low Dose Aspirin] 81 mg tablet,delayed release (DR/EC) 81 mg PO DAILY Digestive Advantage Probiotic 2 billion cell- 140 mg capsule PO DAILY Print Language: Hungarian Instructions: Paronychia (ED) Referrals: CHARLES BAZZI [Primary Care Provider] - 1 week Rui Rivers MD [Physician] - 1 week Discharge Date/Time: 05/21/24 09:14 Procedures ED ID Incision & Drainage I&D Type: abcess Site: finger Side (if applicable): right Sedation/analgesia: none Anesthetic used: lidocaine 1% Technique: incised with #11 blade Amount of fluid (mL): 4 Irrigation: No Packing used: none Complications: pain and bleeding
== END 2024-05-21 09:14 | disposition home or self-care (01) ==
PROVIDERS: Emergency Provider Emergency Medicine; PCP Family Medicine
DX: L03.011 Cellulitis of right finger (principal)
CPT/HCPCS: 10060; 99284

== ENCOUNTER 2024-05-25 07:56 | Outpatient (RCR) | payer MEDICARE, OTHER, SELFPAY ==
[2024-05-23 20:05] VITALS: BP 145/70; PULSE 70; TEMP 36.3; O2SAT 98
[2024-05-23] MEDS: VANCOMYCIN HCL 1,000 MG in 0.9 % SODIUM CHLORIDE 250 ML 250 MG IV (20:10)
[2024-05-24 08:12] VITALS: BP 139/78; PULSE 84; TEMP 36.5; O2SAT 98
[2024-05-24] MEDS: VANCOMYCIN HCL 1,000 MG in 0.9 % SODIUM CHLORIDE 250 ML 250 MG IV ×2 (08:17→19:37)
[2024-05-24 19:45] VITALS: BP 118/68; PULSE 73; TEMP 37.4; O2SAT 97
[2024-05-25 08:10] VITALS: BP 142/76; PULSE 82; TEMP 36.7; O2SAT 99
[2024-05-25] MEDS: VANCOMYCIN HCL 1,000 MG in 0.9 % SODIUM CHLORIDE 250 ML 250 MG IV (08:17)
[2024-05-25 09:25] VITALS: BP 140/76; PULSE 80; TEMP 36.7; O2SAT 99
== END 2024-05-30 09:16 | disposition home or self-care (01) ==
LOC: INF 07:56
PROVIDERS: PCP Family Medicine
DX: L03.90 Cellulitis, unspecified (principal); B95.62 Methicillin resistant Staphylococcus aureus infection as the cause of diseases classified elsewhere
CPT/HCPCS: 96365; 96366; J3370

== ENCOUNTER 2024-07-15 06:57 | Day surgery (SDC) | payer MEDICARE, OTHER, SELFPAY ==
[2024-07-15 07:23] VITALS: BP 140/80; PULSE 62; TEMP 36.2; O2SAT 97
[2024-07-15] MEDS: 0.9 % SODIUM CHLORIDE 500 ML IV (07:34)
--- NOTE | 2024-07-15 08:25 | W.PM.PROCNOT ---
Date of procedure: 07/15/24 Pre-op diagnosis: Pain due to left knee osteoarthritis Post-op diagnosis: same as pre-op Procedure: Procedure: Left genicular nerve radiofrequency ablation Medications: Bupivacaine 0.25% 2cc, depomedrol 40mg, lidocaine 2% 12cc The patient was taken to the procedures suite and positioned in the supine position. I explained the details of the procedure to the patient including the risks, benefits and alternatives. We had an informed discussion and the patient verbalized understanding and signed the consent form. All questions were answered appropriately.? ? A 'time out' procedure was performed. The patient was identified, the chart was reviewed, and all allergies were confirmed. Laterality was conducted and marked. The left knee was marked with a sterile marking pen, prepped with Chloraprep, and sterilely draped.? Under fluoroscopic guidance, branches of the genicular nerves were localized.? First the superior medial genicular nerve was localized where the femoral shaft meets the medial epicondyle.? Skin was anesthetized with 1% lidocaine (only the superficial areas far from osseous contact).? The appropriate level of insertion was identified by placing a hemostat over the knee and obtaining an AP view. An 18-gauge 10 mm active tip 3.5 in needle was advanced in a coaxial manner in the lateral view at 1/2 the depth of the femur which was identified by placing forceps over the skin in the lateral view.? This was repeated on the superior lateral genicular nerve where the femoral shaft meets the lateral epicondyle and the inferior medial genicular nerve where the medial tibal shaft meets the tibial epicondyle (needle was advanced to half the depth of the tibia).? Needle placement was confirmed with a lateral view in all sites, after negative aspiration, 1cc of 2% lidocaine was injected at each of the three sites. ? Sensory testing was completed at 0.5 V at each level and motor testing was negative at 1.5 V for all 3 levels. Each of the sites were lesioned for 80 degrees at 80 seconds, with impedance < 500. The probes were subsequently removed and the sites of insertion were bandaged. The patient was taken to the postoperative area and discharged in good condition. Anesthesia: MAC Surgeon: Priscilla Robledo Pathology: none sent Condition: stable Disposition: no change
[2024-07-15] MEDS: BUPIVACAINE HCL 0.25% PF 25 MG/10 ML VIAL 2 ML INJ (08:26)
[2024-07-15] MEDS: LIDOCAINE HCL 2% 400 MG/20 ML MDV 12 ML INJ (08:26)
[2024-07-15] MEDS: METHYLPREDNISOLONE ACETATE 40 MG/ML VIAL INJ (08:26)
[2024-07-15 08:28] VITALS: BP 119/58; PULSE 63; TEMP 36.3; O2SAT 95
[2024-07-15 08:40] VITALS: BP 119/72; PULSE 65; TEMP 36.3; O2SAT 98
== END 2024-07-15 08:56 | disposition home or self-care (01) ==
LOC: SURGOUT 06:58
PROVIDERS: PCP Family Medicine; Visit Provider Anesthesiology
DX: M17.12 Unilateral primary osteoarthritis, left knee (principal); M25.562 Pain in left knee; K21.9 Gastro-esophageal reflux disease without esophagitis; Z85.038 Personal history of other malignant neoplasm of large intestine
CPT/HCPCS: 64624; J0665; J1010; J2704

== ENCOUNTER 2024-08-14 09:18 | Outpatient (OUT) | payer MEDICARE, OTHER, SELFPAY ==
--- OUTSIDE RECORDS SUMMARY | 2024-08-14 09:31 | XMS_ITS | CCD ---
Author Organization [facility] Care Team Providers Care Compound Finisher Name Role Phone CHARLES BAZZI Unavailable Unavailable CHARLES BAZZI Unavailable Unavailable Caroline Rangel II Unavailable DO Charles Bazzi Primary Care Provider [phone] MD Caroline Rangel II Attending Provider Charles Bazzi Unavailable DO Charles Bazzi Primary Care Provider [phone] DO Charles Bazzi Attending Provider Charles Bazzi R Unavailable Unavailable Unavailable CAROLINE RANGEL Attending Unavailable CAROLINE RANGEL Admitting Unavailable JEREMIE ., DR JHAVERI Consulting Unavailable JEREMIE ., DR JHAVERI Admitting Unavailable JEREMIE ., DR JHAVERI Attending Unavailable JEREMIE ., DR JHAVERI Consulting Unavailable JEREMIE ., DR JHAVERI Admitting Unavailable JEREMIE ., DR JHAVERI Attending Unavailable Ani Can Consulting Unavailable Tomi Greene Unavailable Unavailable Primary Care Provider UnavailCharles Reid Primary Care Provider Osmin KIRKPATRICK, Colleen Mathis Unavailable [phone] Cole VELASQUEZ, [place] Unavailable Naheed Elias PA-C Unavailable [phone] DO Charles Bazzi Primary Care Provider MD Tomi Greene Attending Provider AUSTIN Rangel Emergency Provider DO Lynnette Hare Admit Provider DO Lynnette Hare Attending Provider KAYA Harmon Other Provider Unavailable DO Akila Stokes Other Provider MD Troy Combs Other Provider MD David Espinosa Other Provider MD Marcos Rios Other Provider MD Blas Villagomez Other Provider ROXY Wyatt Other Provider MD Amanda Mora Other Provider MD Mali Camposammed Naerlinda Other Provider MD Kandace Shah Other Provider Ernesto [facility] Arlette Church Other Provider MD Wendy Ocasio Other Provider MD Agustin Negron Attending Provider MD Tapan Corona Other Provider Dr. Charles Bazzi Primary Care Unavailabl moe Bazzi, Dr. Charles Joseph Primary Care Unavailabl Dr. Marcos Pitts Attending Unavaila Dr. Marcos Cook Referring Dr. Charles Hernandez [facility] DO Charles Ho Primary Care Provider [phone] AUSTIN Rangel Emergency Provider DO Lynnette Hare Admit Provider KAYA Harmon Other Provider Unavailable DO Akila Stokes Other Provider MD Troy Combs Other Provider MD David Espinosa Other Provider MD Marcos Rios Other Provider MD Blas Villagomze Other Provider ROXY Wyatt Other Provider MD Amanda Mora Other Provider MD Jomar Campos Other Provider MD Kandace Shah [facility] Arlette Church Other Provider MD Wendy Ocasio Other Provider [phone] MD Agustin Negron Attending Provider MD Tapan Corona Other Provider MD Cristhian Vargas Attending Provider Charles Bazzi DO Primary Care Provider MARCOS RIOS Attending Unavailable CHARLES BAZZI Primary Care Unavailable Michael [facility], Maryuri Unavailable Unavailable DO Charles Bazzi Primary Care Provider [phone] DO Patrice Springer Emergency Provider Amarillovai MD Miguel Ángel Dobson Admit Provider [phone] MD Miguel Ángel Delgadillo Attending Provider MD Tim Garduno Attending Provider MD Cristhian Vargas Other Provider DO Charles Bazzi Attending Provider MD Mary Al Emergency Provider MD Patrice Hooks Admit Provider MD Patrice Hooks Attending Provider DO Jm Trujillo Attending Provider DO Ion Eckert Other Provider Charles Bazzi Primary Care Provider LAISHA SINGER Admitting Unavailable LAISHA SINGER Attending Unavailable KUNS, CHARLES BRENDON Primary Care Unavailable JIMENA HUDSON Referring Unavaila ble KUNS, CHARLES BRENDON Primary Care Unavailable BAN, LAISHA Admitting Unavailable BAN, LAISHA Attending Unavailable KUNS, CHARLES BRENDON Primary Care Unavailable PADMINI LANCE Admitting Unavailable BAN, LAISHA Attending Unavailable V, CRISTHIAN Attending Unavailable SUDHA THAPA Attending Unavailable ALLISON, OSCAR Contreras Attending Unavailable LIANA, OSCAR Contreras Referring Unavailable LIANA, OSCAR Contreras Attending Unavailable LIANA, OSCAR Contreras Attending Unavailable LIANA, OSCAR Contreras Attending Unavailable LIANA, OSCAR A Referring Unavailable V, CRISTHIAN Attending Unavailable KARAMLOU, TAPAN Referring Unavailable V, CRISTHIAN Attending Unavailable LIANA, OSCAR A Attending Unavailable LENORACATHLEEN TREJO Attending Unavailable V, CRISTHIAN Attending Unavailable KARAMLOU, TAPAN Referring Unavailable Osmin KIRKPATRICK, Colleen Mathis Unavailable [phone] Unavailable Primary Care Provider Unavailabl e KUNS, CHARLES BRENDON Primary Care Unavailable KARAMLOU, TAPAN Attending Unavailable KUNS, CHARLES BRENDON Primary Care Unavailable BAN, LAISHA Referring Unavailable KUNS, CHARLES BRENDON Primary Care Unavailable KARAMLOU, TAPAN Attending Unavailable KUNS, CHARLES BRENDON Primary Care Unavailable KARAMLOU, TAPAN Referring Unavailable KUNS, CHARLES BRENDON Primary Care Unavailable KARAMLOU, TAPAN Referring Unavailable KARAMLOU, TAPAN Attending Unavailable KUNS, CHARLES BRENDON Primary Care Unavailable Del HUDSON Attending Unavailable KUNS, CHARLES BRENDON Primary Care Unavailable KARAMLOU, TAPAN Attending Unavailable KUNS, CHARLES BRENDON Primary Care Unavailable BAN, LAISHA Referring Unavailable BRANDIE SALMERON Attending Unavailable KUNS, CHARLES BRENDON Primary Care Unavailable KARAMLOU, TAPAN Referring Unavailable KUNS, CHARLES BRENDON Primary Care Unavailable KUNS, CHARLES BRENDON Primary Care Unavailable KARAMLOU, TAPAN Referring Unavailable BAN, LAISHA Attending Unavailable KUNS, CHARLES BRENDON Primary Care Unavailable KARAMLOU, TAPAN Referring Unavailable KUNS, CHARLES BRENDON Primary Care Unavailable ALE MARIE Referring Unavailable ALE MARIE Attending Unavailable KUNS, CHARLES BRENDON Primary Care Unavailable KUNS, CHARLES BRENDON Primary Care Unavailable Del HUDSON Attending Unavailable KUNS, CHARLES BRENDON Primary Care Unavailable KARAMLOU, TAPAN Referring Unavailable KUNS, CHARLES BRENDON Primary Care Unavailable KARAMLOU, TAPAN Referring Unavailable KUNS, CHARLES BRENDON Primary Care Unavailable Del HUDSON Attending Unavailable KUNS, CHARLES BRENDON Primary Care Unavailable KARAMLOU, TAPAN Referring Unavailable KUNS, CHARLES BRENDON Primary Care Unavailable BAN, LAISHA Referring Unavailable BRANDIE SALMERON Attending Unavailable KUNS, CHARLES BRENDON Primary Care Unavailable KARAMLOU, TAPAN Referring Unavailable KUNS, CHARLES BRENDON Primary Care Unavailable KARAMLOU, TAPAN Referring Unavailable KUNS, CHARLES BRENDON Primary Care Unavailable KARAMLOU, TAPAN Referring Unavailable KARAMLOU, TAPAN Attending Unavailable KUNS, CHARLES BRENDON Primary Care Unavailable KARAMLOU, TAPAN Referring Unavailable KUNS, CHARLES BRENDON Primary Care Unavailable BAN, LAISHA Referring Unavailable BAN, LAISHA Attending Unavailable KUNS, CHARLES BRENDON Primary Care Unavailable ALE MARIE Referring Unavailable KARAMLOU, TAPAN Referring Unavailable KUNS, CHARLES BRENDON Primary Care Unavailable BRUNA HICKS Attending Unavailable BAN, LAISHA Referring Unavailable KUNS, CHARLES BRENDON Primary Care Unavailable PRACHI LOZANO Attending Unavailable KUNS, CHARLES BRENDON Primary Care Unavailable Kuns DO, Charles Primary Care Provider [phone] Chris Henning APRN Emergency Provider Jorge A Haji DO Attending Provider [phone] Charles Bazzi DO R Primary Care Provider [phone] Jorge A Haji DO Other Provider [phone] Amanda Patterson MD Attending Provider Kuns DO, Charles Attending Provider Kuns, Charles Primary Care Unavailable Chris Henning Attending Unavailable Chris Henning Admitting Unavailable Kuns, Charles Primary Care Unavailable Jorge A Haji Admitting Unavailable Jorge A Haji Attending Unavailable Kuns, Charles Attending Unavailable Kuns, Charles Admitting Unavailable Kuns, Charles Primary Care Unavailable Kuns, Charles Primary Care Unavailable Kuns, Charles Attending Unavailable Dixie, Charles Admitting Unavailable Miguel Ángel Delgadillo Admitting Unavailable Tim Garduno Attending Unavailable Dixie, Charles Primary Care Unavailable Cristhian Vargas Consulting Unavailable Ion Eckert Consulting Unavailable Alejos, Charles Primary Care Unavailable Patrice Hooks Admitting Unavailable Jm Trujillo Attending Unavailjonathan e Dixie, Charles Primary Care Unavailable Amanda Patterson Admitting Unavailable Amanda Patterson Attending Unavailable Dixie, Charles Primary Care Unavailable Chris Henning Admitting Unavailable Chris Henning Attending Unavailable Jorge A Haji Consulting Unavailable Gilynseyitis , Priscilla Mahajan Attending Unavailable Gimeekraitis , Priscilla Mahajan Attending Unavailable Giedraitis , Priscilla Mahajan Attending Unavailable Gieditis , Priscilla Mahajan Attending Unavailable Medications Current Medications Medication Drug Class(es) Dates Sig (Normalized) Sig (Original) ALPRAZolam 0.25 mg oral tablet (20 sources) Benzodiazepine Start: 11-23-2023 End: 05-31-2024 take 1 tablet by mouth twice daily as needed for anxiety Alprazolam (Xanax) 0.25 mg tablet Active 0.25 MG PO Twice daily as needed for anxiety May 31, 2024 12:00am Start: 08-19-2022 End: 07-25-2023 take 1 tablet by mouth every twenty-four hours as needed ALPRAZolam (Xanax) 0.25 mg tablet Take 1 tablet (0.25 mg) by mouth once daily as needed. 0 08/19/2022 07/25/2023 Discontinued (Therapy completed) Start: 11-17-2021 take 1 tablet by jaci th twice daily as needed Xanax 0.25 MG 1 tablet Orally Twice a day prn November, Active amoxicillin 500 mg oral tablet (20 sources) Penicillin-class Antibacterial Start: 06-13-2023 Amoxicillin 500 mg tablet FOR DENTAL WORK 06/13/2023 Active Comment on above: FOR DENTAL WORK Aspir-81 81 MG (20 sources) Start: 02-28-2018 take 1 tablet by mouth once daily Aspir-81 81 MG 1 tablet Orally Once a day Feb, Active aspirin 81 mg delayed release oral tablet (20 sources) Platelet Aggregation Inhibitor, Nonsteroidal Anti-inflammatory Drug Start: 11-02-2018 take 1 tablet by mouth once daily Aspirin 81 mg tablet,delayed release (DR/EC) Active 81 MG PO Daily November 01, 2018 11:00pm Comment on above: Take 81 mg by mouth once daily. azithromycin 250 mg oral tablet (3 sources) Macrolide Antimicrobial Start: 07-09-2024 Azithromycin (Zithromax Z-Lazaro) 250 mg tablet Active 0 PO .COMPLEX 6 July 09, 2024 12:00am For 250 mg dose pack: take 500 mg today (day 1), then 250 mg for 4 days (days 2-5) PO Start: 05-25-2021 Zithromax Z-Pa k 250 MG 2 tablet on the first day, then 1 tablet daily for 4 days Orally Once a day for 5 day(s) May, Active Bacillus coagulan-calcium carb (DIGESTIVE ADVANTAGE PROBIOTIC) 2 billion cell- 140 mg cap (3 sources) Start: 11-10-2023 End: 12-10-2023 take 1 capsule by mouth once daily Bacillus coagulan-calcium carb (DIGESTIVE ADVANTAGE PROBIOTIC) 2 billion cell- 140 mg cap Take 1 capsule by mouth once daily. Patient should start on November 10, 2023. 30 capsule 0 11/10/2023 12/10/2023 Active bifidobacterium animalis [id number] unt / lactobacillus acidophilus [id number] unt oral capsule (2 sources) Start: 11-09-2023 Probiotic Prod uct (Digestive Advantage) capsule 11/09/2023 Active Probiotic CAPS U SE DIRECTED. Quantity: 0 Refills: 0 Ordered: 26-Oct-2022 DO Active Calcium Carbonate (2 sources) take 1 tablet by jaci th once daily calcium carbonate (CALCIUM 500 ORAL) Take 1 tablet by mouth once daily. 0 Active Calcium 500 MG T ABS TAKE 1 TABLET DAILY. Quantity: 0 Refills: 0 Ordered: 26-Oct-2022 DO Active 1 ml denosumab 60 mg/ml prefilled syringe (20 sources) RANK Ligand Inhibitor Start: 06-26-2023 Denosuma b (Prolia) 60 mg/mL Syringe Active 60 MG SUBCUT EVERY 6 MONTHS June 26, 2023 12:00am Start: 03-06-2023 End: 04-05-2023 Denosumab (Prolia) 60 mg/mL Syringe Discontinued 60 MG SUBCUT EVERY 6 MONTHS March 05, 2023 11:00pm April 05, 2023 2:37pm Start: 12-07-2022 denosumab (Pro nova) injection 60 mg diclofenac sodium 0.01 mg/mg topical gel (20 [...] 4x's daily for 30 days Feb, Active doxycycline hyclate 100 mg oral tablet (4 sources) Tetracycline-class Drug Start: 05-31-2024 End: 06-25-2024 take 1 tablet by mouth twice daily Doxycycline Hyclate 100 mg tablet Active 100 MG PO Twice daily June 25, 2024 8:37am 0.4 ml enoxaparin sodium 100 mg/ml prefilled [...] Contrast as designated per enteric contrast guidelines escitalopram 10 mg oral tablet (1 source) Serotonin Reuptake Inhibitor Start: 06-11-20 take 1 tablet by mouth once daily Escitalopram Oxalate (Lexapro) 10 mg tablet Active 10 MG PO Daily June 11, 2024 12:00am ibuprofen 400 mg oral tablet (9 sources) Nonsteroidal Anti-inflammatory Drug Start: 11-09-19 End: 02-06-20 ibuprofen 400 MG tablet 11/09/2023 Active iv contrast (will be provided with radiology test) (4 sources) Start: 04-28-20 End: 04-29-20 iv contrast (will be provided with radiology [...] in the MR contrast administration guidelines link. lactobacillus combination no.4 (Probiotic) 3 billion cell capsule (1 source) End: 2023 lactobacillus combination no.4 (Probiotic) 3 billion cell capsule Take 1 capsule by mouth once daily. 0 07/25/2023 Discontinued (Therapy completed) loperamide hydrochloride 2 mg oral capsule (2 sources) Opioid Agonist Start: 2023 loperamide (Imodium) 2 MG capsule 08/30/2023 Active Comment on above: Take 1 capsule by [facility] before meals and at bedtime. magnesium gluconate 500 mg oral tablet (1 source) take 1 tablet by mouth once daily magnesium, as gluconate, (Mag-G) 27 mg magnesium (500 mg) tablet Take 1 tablet (27 mg) by mouth once daily. 0 Active methylPREDNISolone 4 mg oral tablet (7 sources) Corticosteroid Start: 2023 take 1 tablet by mouth once Methylprednisolone (Medrol (Lazaro)) 4 mg tablets,dose pack Active 0 PO per package directions July 09, 2024 12:00am PO PER PKG DIR Start: 05-25-2021 Medrol 4 MG as directed Orally May, Not-Taking Ussrvvab-Syb-Kowq-Fa-Lutein (Multivitamin Women 50 Plus) 8 mg iron-400 mcg-300 mcg Tablet (3 sources) Start: 11-02-2018 take 1 tablet by mouth once daily Kztxrwrj-Fld-Haok-Fa-Lutein (Multivitamin Women 50 Plus) 8 mg iron-400 mcg-300 mcg Tablet Active 1 TAB PO Daily November 01, 2018 11:00pm Start: 11-02-2018 take 1 tablet by jaci th once daily Iaoymzmt-Vus-Yoja-Fa-Lutein (Multivitami n Women 50 Plus) 8 mg iron-400 mcg-300 mcg Tablet Active 1 TAB PO Daily November 02, 2018 12:00am Multivitamin Gummies Womens - (20 sources) Multivitamin Gum mies Womens - Orally Active Brandon 3 Fish Oil (20 sources) Brandon 3 Fish Oil one oral daily Active omega 7-dgj-ine-fish oil (Fish OiL) 1,000 mg (120 mg-180 mg) capsule (1 source) take 1 capsule by mouth once daily omega 8-lzs-gnd-fish oil (Fish OiL) 1,000 mg (120 mg-180 mg) capsule Take 1 capsule (1,000 mg) by mouth once daily. 0 Active Brandon-3 Fatty Acids (Fish Oil) 1200 MG capsule delayed-release (1 source) take 1 capsule by mouth once daily Brandon-3 Fatty Acids (Fish Oil) 1200 MG capsule delayed-release Take 1,200 mg by mouth Daily Active 24 hr oxybutynin chloride 15 mg extended release oral tablet (20 sources) Cholinergic Muscarinic Antagonist Start: take 1 tablet by mouth every twenty-four hours oxybutynin ER (DITROPAN XL) 15 mg 24 hr Extended Rel Tab Take 15 mg by mouth. 11/11/2022 Active Start: 02-28-2018 End: 05-08-2024 take 1 tablet by mouth once daily Oxybutynin Chloride 15 mg tablet extended release 24hr Discontinued 15 MG PO Daily November 01, 2018 11:00pm May 08, 2024 11:03am Comment on above: Take 15 mg by [...] Comment on above: Take 1 tablet by [facility] every 6 hours as needed for up to 7 days. polyethylene glycol 3350 [id number] mg / potassium chloride 2970 mg / sodium bicarbonate 6740 mg / sodium chloride 5860 mg / sodium sulfate 49391 mg powder for oral solution (3 sources) Osmotic Laxative Start: 02-27-2023 Golytely 236 GM At 4:00 pm the day prior to colonoscopy Orally 8 ounces every 15 minutes for 1 days PLEASE CHECK ALLERGIES Feb, Active probiotic (20 sources) probiotic Active Completed/Discontinued Medications Medication Drug Class(es) Dates Sig (Normalized) Sig (Original) acetaminophen 500 mg oral tablet (20 sources) Start: 08-29-2023 End: 02-06-2024 take 2 tablets by mouth every eight hours acetaminophen (TYLENOL) 500 mg tablet Take 2 tablets by mouth every 8 hours. 100 tablet 0 08/29/2023 02/06/2024 Discontinued Comment on above: Take 2 tablets by mo [facility] every 8 hours. acetaminophen 325 mg / HYDROcodone bitartrate 5 mg oral tablet (17 sources) Opioid Agonist Start: 06-11-2024 End: 06-11-2024 take 1 tablet by mouth every four to six hours as needed for pain Hydrocodone-Acetami nophen 5-325 mg tablet Discontinued 1 - 2 TAB PO EVERY 4-6 HOURS as needed for pain 06 11June 11, 2024 June 11, 2024 11:47am Start: 05-31-2024 End: 06-11-2024 take 1 tablet by mouth every four to six hours as needed for pain Hydrocodone-Acetaminophen 5-325 mg table t Active 1 - 2 TAB PO EVERY 4-6 HOURS as needed for pain 30 4 June 11, 2024 Dispense: 30 (thirty) Diagnosis: L08.9 Start: 05-22-2024 End: 05-31-2024 take 1 tablet by mouth every eight hours as needed for pain Hydrocodone-Acetaminophen 5-325 mg table t Discontinued 1 TAB PO Every 8 hours as needed for pain 7 2 May 22, 2024 May 31, 2024 11:28am Start: 06-26-2023 End: 09-30-2023 take 1 tablet by mouth every six hours as needed for pain Hydrocodone-Acetaminophen 5-325 mg table t Discontinued 1 TAB PO Q6H as needed for pain 20 5 June 26, 2023 September 30, 2023 6:51am acetaminophen 325 mg / oxyCODONE hydrochloride 5 mg oral tablet (4 sources) Opioid Agonist Start: 05-22-2024 End: 05-31-2024 Oxycodone-Acetaminophen 5-325 mg tablet Discontinued 1 TAB PO As Directed May 22, 2024 12:00am May 31, 2024 11:27am amLODIPine 5 mg / benazepril hydrochloride 10 mg oral capsule (20 sources) Dihydropyridine Calcium Channel Tanya, Angiotensin Converting Enzyme Inhibitor Start: 09-30-2023 End: 11-23-2023 take 1 capsule by mouth once daily Amlodipine-Benazepril 5-10 mg capsule Discontinued 1 CAP PO Daily September 29, 2023 11:00pm November 23, 2023 7:15am Start: 02-28-2018 End: 09-07-2023 take 1 tablet by mouth once daily Amlodipine-Benazepril 5-10 mg capsule Discontinued 1 TAB PO Daily November 01, 2018 11:00pm September 07, 2023 8:32am Comment on above: Take 1 capsule by [facility] every morning. atropine sulfate 0.025 mg / diphenoxylate hydrochloride 2.5 mg oral tablet (1 source) Anticholinergic, Cholinergic Muscarinic Antagonist, Antidiarrheal Start: take 1 tablet by mouth four times daily as needed diphenoxylate-atropin e (LOMOTIL) 2.5-0.025 mg per tablet Indications: Rectal adenocarcinoma (HCC) , Diarrhea of presumed infectious origin Take 1 tablet by mouth four times a day as needed for up to 30 days. 30 tablet 1 07/12/2023 Active Comment on above: Take 1 tablet by jaci th four times a day as needed for up to 30 days. 12 hr buPROPion hydrochloride 90 mg / naltrexone hydrochloride 8 mg extended release oral tablet (6 sources) Opioid Antagonist, Aminoketone Start: 018 take 2 tablets by mouth every twelve hours Contrave 8-90 MG 2 tablets Orally Twice a day for 30 days Feb, Not-Taking calcium carbonate 1500 mg / cholecalciferol 0.01 mg oral capsule (20 sources) Vitamin D End: 024 take 1 tablet by mouth once daily [...] / vitamin k 0.4 mg chewable tablet (15 sources) Vitamin D Start: 11-03-19 End: 06-26-20 take 2 tablets by mouth once daily Calcium-Vitamin D3-Vitamin K (Citracal-D3 Soft Chew) 500 mg-1,000 unit-40 mcg Tablet,Chewable Discontinued 2 TAB PO Daily November 01, 2018 11:00pm June 26, 2023 10:46am capecitabine 500 mg oral tablet (20 sources) Nucleoside Metabolic Inhibitor Start: 04-05-20 End: 06-26-20 Capecitabine 500 mg Tablet Discontinued MG TABLET April 04, 2023 11:00pm June 26, 2023 10:48am Start: 04-05-2023 End: 06-26-2023 Capecitabine Discontinued MG TABLET April 05, 2023 12:00am June 26, 2023 11:48am Start: 03-21-2023 End: 04-21-2023 take 3 tablets by mouth twice daily capecitabine (XELODA) 500 mg tablet Take 3 tablets (1,500 mg) by mouth twice daily Monday through Monday only on days of radiation. 180 tablet 03/21/2023 04/14/2023 Discontinued Comment on above: Take 3 tablets (1,50 0 mg) by mouth twice daily Monday through Monday only on days of radiation. cephalexin 500 mg oral capsule (4 sources) Cephalosporin Antibacterial Start: 05-22-20 End: 06-11-20 24 take 1 capsule by mouth twice daily Cephalexin 500 mg capsule Discontinued 500 MG PO Twice daily May 22, 2024 12:00am June 11, 2024 1:10pm compounded progesterone 50 mg capsule (20 sources) End: 02-06-20 24 take 3 capsules by mouth once daily [...] acid/epa (FISH OIL ORAL) (20 sources) End: take 2000 mg by mouth twice daily docosahexaenoic acid/epa (FISH OIL ORAL) Take 2,000 mg by mouth two times a day. 02/06/2024 Discontinued End: 02-06-2024 take 2000 mg by mouth twice daily docosahexaenoic acid/epa (FISH OIL ORAL) Take 2,000 mg by mouth two times a day. 0 02/06/2024 Discontinued take 2000 mg by mout h twice daily docosahexaenoic acid/epa (FISH OIL ORAL) Take 2,000 mg by mouth two times a day. 0 Suspended take 2000 mg by mout h twice daily docosahexaenoic acid/epa (FISH OIL ORAL) Take 2,000 mg by mouth two times a day. 0 Active docosahexaenoic acid/epa (FISH OIL ORAL) Take by mouth. 0 Active Comment on above: Take by mouth. Take 2,000 mg by jaci th two times a day. esomeprazole 20 mg delayed release oral capsule (15 sources) Proton Pump Inhibitor Start: 11-03-19 End: 03-06-20 take 1 capsule by mouth once daily Esomeprazole Magnesium (Nexium) 20 mg Capsule,Delayed Release(Dr/Ec) Discontinued 20 MG PO Daily November 01, 2018 11:00pm March 06, 2023 7:54am ferrous sulfate 325 mg oral tablet (11 sources) Start: 04-06-20 End: 06-26-20 take 1 tablet by mouth once daily Ferrous Sulfate (Ferosul) 325 mg (65 mg iron) tablet Discontinued 325 MG PO Daily April 05, 2023 11:00pm June 26, 2023 10:48am Fish Oil CAPS (1 source) Fish Oil CAPS TA KE 1 CAPSULE Daily Quantity: 0 Refills: 0 Ordered: 26-Oct-2022 DO Active gabapentin 100 mg oral capsule (11 sources) Anti-epileptic Agent Start: 11-21-19 End: 05-31-20 24 take 1 capsule by mouth three times daily Gabapentin 100 mg capsule Discontinued 100 MG PO Three times daily November 22, 2023 11:00pm May 31, 2024 11:28am ibandronic acid 150 mg oral tablet (15 sources) Bisphosphonate Start: 11-03-19 End: 03-06-20 take 1 tablet by mouth every month Ibandronate (Boniva) 150 mg Tablet Discontinued 150 MG PO every month November 01, 2018 11:00pm March 06, 2023 8:00am Lactobacillus acidophilus (20 sources) End: 06-20-20 Lactobacillus acidophilus (PROBIOTIC ORAL) Take by mouth. 06/20/2023 Discontinued End: 06-20-2023 Lactobacillus acidophilus (P ROBIOTIC ORAL) Take by mouth. 0 06/20/2023 Discontinued Lactobacillus ac idophilus (PROBIOTIC ORAL) Take by mouth. 0 Active Comment on above: Take by mouth. Lactobacillus Comb No.10 (Probiotic) 20 billion cell Capsule (12 sources) Start: 03-06-2023 End: 06-11-2024 Lactobacillus Comb No.10 (Probiotic) 20 billion cell Capsule Discontinued 11633 MMU CELLS PO Daily March 05, 2023 11:00pm June 11, 2024 1:10pm administer with a meal Start: 03-06-2023 Lactobacillus Comb No.10 (Probiotic) 20 billion cell Capsule Active 08778 MMU CELLS PO Daily March 05, 2023 11:00pm administer with a meal Start: 03-06-2023 Lactobacillus Comb No.10 (Probiotic) 20 billion cell Capsule Active 20893 MMU CELLS PO Daily March 06, 2023 12:00am administer with a meal Magnesium (20 sources) Start: 03-06-2023 End: 11-23-2023 take 1 tablet by mouth once daily Magnesium 500 mg Tablet Discontinued 500 MG PO Daily March 05, 2023 11:00pm November 23, 2023 7:15am Start: 03-06-2023 take 500 mg by mouth once daily Magnesium Active 500 MG PO Daily March 05, 2023 11:00pm Start: 03-06-2023 take 500 mg by mouth once daily Magnesium Active 500 MG PO Daily March 06, 2023 12:00am End: 06-20-2023 Magnesium 250 mg tab Take 50 0 mg by mouth. 06/20/2023 Discontinued End: 06-20-2023 Magnesium 250 mg tab Take 50 0 mg by mouth. 0 06/20/2023 Discontinued Magnesium 250 mg tab Take 500 mg by mouth. 0 Active Magnesium 500 MG TABS Take 1 tablet daily Quantity: 0 Refills: 0 Ordered: 26-Oct-2022 DO Active Comment on above: Take 500 mg by mouth . MEDICATION, NON-DATABASE (20 sources) take 1 dose by mouth once daily MEDICATION, NON-DATABASE Take 1 Each by mouth once daily. Metabolic Maintenance DIM Complete - 100mg Diindolylmethane Supplement with Vitamin E, B12 + Active Folate 0 Active take 1 dose by mouth once daily MEDICATION, NON-DATABASE Take 1 Each by mouth once daily. [employer] guzman mitochondrial micronutrients and a smart [...] lipoic acid, N-acetyl cysteine, and acetyl L-carnitine meloxicam 15 mg oral tablet (20 sources) Nonsteroidal Anti-inflammatory Drug Start: End: take 1 tablet by mouth once daily Meloxicam 15 mg tablet Discontinued 15 MG PO Daily March 05, 2023 11:00pm April 30, 2024 12:32pm Comment on above: Take 1 tablet by jaci every afternoon. Take 1 tablet by jaci once daily. metroNIDAZOLE 500 mg oral tablet (1 source) Nitroimidazole Antimicrobial Start: take 1 tablet by mouth three times [...] and 11pm, the evening prior to surgery. Multivit With Min-Folic Acid (Adult Multivitamin Gummies) 120 mcg tablet,chewable (4 sources) Start: End: take 1 tablet by mouth once daily Multivit With Min-Folic Acid (Adult Multivitamin Gummies) 120 mcg tablet,chewable Discontinued 1 TAB PO Daily October 29, 2023 11:00pm November 23, 2023 7:15am Sgaalowe-Ryo-Jykg-Fa- Vit K-Lut (Multivitamin Women 50 Plus) 8 mg iron-400 mcg-300 mcg Tablet (12 sources) Start: End: take 1 tablet by mouth once daily Gwerfgot-Bfc-Ubal-Fa -Vit K-Lut (Multivitamin Women 50 Plus) 8 mg iron-400 mcg-300 mcg Tablet Discontinued 1 TAB PO Daily November 01, 2018 11:00pm March 06, 2023 8:01am Start: 11-02-2018 End: 03-06-2023 take 1 tablet by mouth once daily Tbzfjhwa-Mlv-Voko-Fa-Vit K-Lut (Multivitamin Women 50 Plus) 8 mg iron-400 mcg-300 mcg Tablet Discontinued 1 TAB PO Daily November 02, 2018 12:00am March 06, 2023 9:01am naproxen 500 mg oral tablet (20 sources) Nonsteroidal Anti-inflammatory Drug Start: 11-02-2018 End: 03-06-2023 take 1 tablet by mouth once daily Naproxen 500 mg tablet Discontinued 500 MG PO Daily November 01, 2018 11:00pm March 06, 2023 7:56am take 1 tablet by [facility] every twelve hours at mealtime as needed [...] Comment on above: Take 2 tablets by [facility] as directed. Take 2 tablet at 6pm, [...] if no relief up to 3 times. Brandon 9-Xxy-Eot-Fish Oil (Fish Oil) 1,000 mg (120 mg-180 mg) Capsule (15 sources) Start: 11-02-2018 End: 05-31-2024 take 1 capsule by mouth once daily Brandon 4-Nnq-Lih-Fish Oil (Fish Oil) 1,000 mg (120 mg-180 mg) Capsule Discontinued 1 CAP PO Daily November 01, 2018 11:00pm May 31, 2024 11:29am Start: 11-02-2018 take 1 capsule by [facility] once daily Brandon 4-Cff-Kkp-Fish Oil (Fish Oil) 1,000 mg (120 mg-180 mg) Capsule Active 1 CAP PO Daily November 01, 2018 11:00pm Start: 11-02-2018 take 1 capsule by mo [facility] once daily Brandon 9-Pqe-Uzg-Fish Oil (Fish Oil) 1,000 mg (120 mg-180 mg) Capsule Active 1 CAP PO Daily November 02, 2018 12:00am omeprazole 40 mg delayed release oral capsule (20 sources) Proton Pump Inhibitor Start: 07-09-2018 End: 05-08-2024 take 1 capsule by mouth once daily Omeprazole 40 mg capsule,delayed release(DR/EC) Discontinued 40 MG PO Daily April 05, 2023 11:00pm May 08, 2024 11:03am Comment on above: Take 1 capsule by [facility] every afternoon. Take 40 mg by mouth once daily. ondansetron 4 mg oral tablet (20 sources) Serotonin-3 Receptor Antagonist Start: 05-22-2024 End: 06-11-2024 take 1 tablet by mouth every eight hours as needed for nausea and vomiting Ondansetron Hcl 4 mg tablet Discontinued 4 MG PO Every 8 hours as needed for nausea and vomiting May 22, 2024 12:00am June 11, 2024 1:11pm Start: 03-21-2023 End: 02-06-2024 take 1 tablet by mouth every eight hours as needed ondansetron (ZOFRAN) 8 mg tablet Take 1 tablet by mouth every 8 hours as needed for nausea/vomiting. 90 tablet 2 03/21/2023 02/06/2024 Discontinued Start: 01-11-2023 End: 02-06-2024 take 1 tablet by mouth every eight hours as needed for nausea Ondansetron 8 mg Tablet,Disintegrating Active 8 MG PO Q8H as needed for Nausea April 04, 2023 11:00pm Comment on above: Take 1 tablet by [facility] every 8 hours as needed for nausea/vomiting. phenazopyridine hydrochloride 100 mg oral tablet (10 sources) Start: 2022 End: 2022 take 2 tablets by mouth every eight hours as needed phenazopyridine (PYRIDIUM) 100 mg tablet Take 2 tablets by mouth three times a day as needed. 30 tablet 2 05/01/2023 06/20/2023 Discontinued Comment on above: Take 2 tablets by [facility] three times a day as needed. polyethylene glycol 3350 81524 mg powder for oral solution (20 sources) Osmotic Laxative Start: 2022 End: 2023 Polyethylene Glycol 3350 (Miralax) 17 gram Powder In Packet Discontinued 17 GM PO Daily as needed for Constipation April 04, 2023 11:00pm September 30, 2023 6:52am Comment on above: Take by mouth once d aily. Dissolve dose in 4 - 8 ounces of liquid and take as directed. potassium 99 mg extended release oral tablet (13 sources) Start: 2022 End: 2022 take 1 tablet by mouth once daily Potassium 99 mg Tablet Discontinued 99 MG PO Daily March 05, 2023 11:00pm June 26, 2023 10:49am take 1 tablet by mouth once belinda y Potassium 99 MG Oral Tablet TAKE 1 TABLET DAILY. Quantity: 0 Refills: 0 Ordered: 26-Oct-2022 DO Active potassium citrate 99 mg oral tablet (20 sources) End: 06-20-2023 take 1 tablet by mouth once daily in the morning potassium citrate 99 mg cap Take 1 tablet by mouth every morning. 06/20/2023 Discontinued Comment on above: Take 1 tablet by jaci th every morning. prochlorperazine 10 mg oral tablet (20 sources) Phenothiazine Start: 03-21-2023 End: 02-06-2024 take 1 tablet by mouth every six hours as needed for nausea Prochlorperazine Maleate (Compazine) 10 mg Tablet Discontinued 10 MG PO Q6H as needed for Nausea April 04, 2023 11:00pm November 23, 2023 7:16am Comment on above: Take 1 tablet by jaci th every 6 hours as needed. progesterone 100 mg oral capsule (20 sources) Progesterone Start: 06-26-2023 End: 11-23-2023 take 1 capsule by mouth once daily Progesterone Micronized 100 mg Capsule Discontinued 150 MG PO Daily June 26, 2023 12:00am November 23, 2023 7:16am Start: 06-26-2023 take 150 mg by mouth once daily Progesterone Micronized Active 150 MG PO Daily June 26, 2023 1:00am Start: 04-05-2023 End: 06-26-2023 Progesterone 50 mg/mL Oil Discontinued MG IM April 04, 2023 11:00pm June 26, 2023 10:50am Start: 04-05-2023 End: 06-26-2023 Progesterone Discontinued MG IM April 05, 2023 12:00am June 26, 2023 11:50am psyllium 3400 mg powder for oral suspension (1 source) Start: 08-30-2023 take 1 dose by mouth three times daily psyllium (METAMUCIL) 3.4 gram packet Take 1 Packet by mouth three times a day. 90 Packet 1 08/30/2023 Suspended Comment on above: Take 1 Packet by jaci th three times a day. sulfamethoxazole 800 mg / trimethoprim 160 mg oral tablet (4 sources) Dihydrofolate Reductase Inhibitor Antibacterial, Sulfonamide Antimicrobial Start: 05-22-2024 End: 06-11-2024 Sulfamethoxazole- Trimethoprim 800-160 mg tablet Discontinued 1 TAB PO As Directed May 22, 2024 12:00am June 11, 2024 1:11pm 2500 mg testosterone 0.01 mg/mg topical gel (20 sources) Androgen Start: 04-05-2023 End: 09-30-2023 Testosterone 1 % (25 mg/2.5gram) Gel In Packet Discontinued 1 PACKET TRANSDERML Daily April 04, 2023 11:00pm September 30, 2023 6:52am End: 02-06-2024 Testosterone 12.5 mg/ 1.25 g [...] MIL traMADol hydrochloride 50 mg oral tablet (15 sources) Opioid Agonist Start: 11-10-19 End: 03-06-20 take 1 tablet by mouth every four hours as needed for pain Tramadol 50 mg Tablet Discontinued 50 MG PO Q4H as needed for Pain 26 01November 08, 2018 11:00pm March 06, 2023 7:57am triamcinolone acetonide 32 mg injection (20 sources) Corticosteroid Start: 02-12-20 Zilretta May, 32 mg Tumeric Curcumin Complex (15 sources) Start: 11-03-19 End: 03-06-20 take 2 [...] Reuptake Inhibitor Start: 02-28-2018 End: 03-22-2023 take 1 tablet by mouth once daily Venlafaxine 75 mg tablet Discontinued 75 MG PO Daily November 01, 2018 11:00pm March 06, 2023 8:01am Comment on above: Take one(1) tablet d aily. Vitamin D3-Vitamin K2 (Mk4) (K2 Plus D3) 1,000-100 unit-mcg Tablet (12 sources) Start: 04-05-2023 End: 06-26-2023 take 1 [...] (K2 PLUS D3 ORAL) (20 sources) End: 07-30-2024 take 1 dose by mouth once daily [...] Take 1 Dose by mouth once daily. vortioxetine 5 mg oral tablet (20 sources) Start: 10-03-2022 take 1 tablet by mouth once daily Vortioxetine 10 mg tablet Active 10 MG PO Daily October 29, 2023 11:00pm [employer] tablet Orally Once a day; Note: Source Status: Taking; Provider: Dixie Lim Start: 09-01-2022 End: 10-30-2023 take 1 tablet by mouth once daily Vortioxetine (Trintellix) 5 mg tablet Discontinued 5 MG PO Daily October 25, 2023 11:00pm October 30, 2023 12:38pm vortioxetine (TR INTELLIX) 5 mg tablet Take 10 mg by mouth. 0 Active Comment on above: Take 10 mg by mouth. Take 10 mg by mouth once daily. Problems Active Problems Problem Classification Problem Date Documented Da te Episodic/Chronic Acute and unspecified renal failure (1 source) Acute kidney failure, unspecified; Translations: [JOSE MIGUEL (acute kidney injury) (HCC)] Onset: 4 Episodic Anxiety disorders (20 sources) Mixed anxiety and depressive disorder; Translations: [Other specified anxiety disorders] Onset: 4 Chronic Cancer of rectum and anus (20 sources) Adenocarcinoma of rectum; Translations: [Malignant neoplasm of rectum] Onset: 3 03-07-2023 Chronic Cancer of rectum and anus (5 sources) History of malignant neoplasm of rectum; Translations: [Personal history of other malignant neoplasm of rectum, rectosigmoid junction, and anus] Onset: 4 10-10-2023 Episodic Cardiac dysrhythmias (20 sources) Atrial fibrillation; Translations: [Unspecified atrial fibrillation] Onset: 4 Chronic Cardiac dysrhythmias (1 source) Cardiac dysrhythmias Onset: 7 Coronary atherosclerosis and other heart disease (1 source) Coronary atherosclerosis and other heart disease Onset: 7 Diabetes mellitus without complication (14 sources) Hyperglycemia; Translations: [Hyperglycemia, unspecified] Onset: 4 10-17-2023 Episodic Disorders of lipid metabolism (20 sources) Hyperlipidemia; Translations: [Hyperlipidemia, unspecified] Onset: 4 Chronic Diverticulosis and diverticulitis (20 sources) Diverticular disease; Translations: [Diverticulosis of intestine, part unspecified, without perforation or abscess without bleeding] Onset: 4 10-27-2023 Chronic Esophageal disorders (20 sources) Gastroesophageal reflux disease; Translations: [Gastro-esophageal reflux disease without esophagitis] Onset: 4 Chronic Essential hypertension (20 sources) Essential (primary) hypertension; Translations: [Hypertensive disorder] Onset: 7 Chronic Comment on above: history of Essential hypertension (2 sources) Essential hypertension Onset: 7 Fluid and electrolyte disorders (1 source) Hypo-osmolality and hyponatremia; Translations: [Hyponatremia] Onset: 4 Episodic Gastrointestinal hemorrhage (7 sources) Blood-tinged feces; Translations: [Melena] Episodic Genitourinary symptoms and ill-defined conditions (20 sources) Female stress incontinence; Translations: [Stress incontinence (female) (male)] Onset: 3 Chronic Genitourinary symptoms and ill-defined conditions (2 sources) Dysuria; Translations: [Dysuria] 05-01-2023 Episodic Nonmalignant breast conditions (1 source) Fibrocystic disease of breast; Translations: [Diffuse cystic mastopathy of unspecified breast] Onset: 3 01-23-2023 Chronic Nonspecific chest pain (20 sources) Chest pain; Translations: [Chest pain, unspecified] Onset: 4 04-05-2023 Episodic Nutritional deficiencies (1 source) Vitamin D deficiency; Translations: [Vitamin D deficiency, unspecified] Onset: 3 01-23-2023 Chronic Osteoarthritis (20 sources) Arthritis; Translations: [Unspecified osteoarthritis, unspecified site] Onset: 6 Resolved: 2 Chronic Osteoporosis (20 sources) Senile osteoporosis; Translations: [Age-related osteoporosis without current pathological fracture] Onset: 3 10-27-2023 Chronic Other aftercare (3 sources) Surgical follow-up; Translations: [Encounter for follow-up examination after completed treatment for conditions other than malignant neoplasm] 09-22-2023 Episodic Other connective tissue disease (3 sources) Muscle finding; Translations: [Myalgia, unspecified site] 04-25-2023 Episodic Other connective tissue disease (1 source) Pain in right hand; Translations: [Pain in right hand] Onset: 4 Episodic Other connective tissue disease (1 source) Pain in right finger(s); Translations: [Pain in right finger(s)] Onset: 4 Episodic Other disorders of stomach and duodenum [...] attention to ileostomy; Translations: [Attention to ileostomy ([facility])] Onset: 4 Chronic Other gastrointestinal disorders (6 [...] upper limb] Chronic Other nervous system disorders (1 source) Carpal tunnel syndrome of left wrist; Translations: [Carpal tunnel syndrome, left upper limb] Onset: 3 06-19-2023 Chronic Other nervous system disorders (11 sources) Acute postoperative pain; Translations: [Other acute postprocedural pain] Onset: 4 06-26-2023 Episodic Other nervous system disorders (1 source) Other acute postprocedural pain; Translations: [Post-op pain] Onset: 4 Episodic Other nervous system disorders (1 source) Pain in limb; Translations: [Other acute postprocedural pain] 05-31-2024 Episodic Other non-traumatic joint disorders (1 source) Pain in right hip joint; Translations: [Pain in right hip] 11-21-2023 Episodic Other nutritional; endocrine; and metabolic disorders (1 source) Overweight in adulthood with body mass index of 25 or more but less than 30; Translations: [Overweight] Episodic Residual codes; unclassified (4 sources) Asymptomatic menopausal state; Translations: [ASYMPTOMATIC MENOPAUSAL STATE] Onset: 3 Episodic Residual codes; unclassified (2 sources) Body mass index (BMI) 24.0-24.9, adult; Translations: [Body mass index (BMI) 24.0-24.9, adult] Onset: 4 Episodic Residual codes; unclassified (3 sources) Other specified postprocedural states; Translations: [Other postprocedural status] 06-11-2024 Episodic Skin and subcutaneous tissue infections (19 sources) Cellulitis; Translations: [Cellulitis, unspecified] Onset: 4 05-22-2024 Episodic Unclassified (1 source) Obesity, unspecified / E66.9(ICD-9) Onset: 7 Unclassified (1 source) Pure hypercholesterolemia, unspecified / E78.00(ICD-9) Onset: 7 Unclassified (1 source) Family hx of ischem heart dis and oth dis of the circ sys / Z82.49(ICD-9) Onset: 7 Unclassified (1 source) Abnormal result of other cardiovascular function study / R94.39(ICD-9) Onset: Viral infection (16 sources) COVID-19; Translations: [Pneumonia due to COVID-19 virus] Onset: 06-03-2021 Episodic Past or Other Problems Problem Classification Problem Date Documented Date Episodic/Chronic Abdominal pain (7 sources) Indigestion; Translations: [Epigastric pain] Onset: 10-26-2023 04-06-2023 Episodic Deficiency and other anemia (20 sources) Iron deficiency anemia; Translations: [Other iron deficiency anemias] Onset: 07-06-2023 08-11-2023 Episodic Hemorrhoids (20 sources) Hemorrhoids; Translations: [Unspecified hemorrhoids] Onset: 08-09-2023 08-09-2023 Episodic Immunizations and screening for infectious disease (20 sources) Patient encounter status; Translations: [Other specified [...] melanoma of skin] Onset: 04-28-2009 04-28-2009 Episodic Nausea and vomiting (5 sources) Vomiting; Translations: [Vomiting, unspecified] Onset: 10-26-2023 10-26-2023 Episodic Other aftercare (1 source) Encounter for follow-up examination after completed treatment for conditions other than malignant neoplasm; Translations: [Follow-up examination after colorectal surgery] Onset: 01-09-2024 Episodic Other circulatory disease (4 sources) H/O: atrial fibrillation; Translations: [Personal history of other diseases of circulatory system] Onset: 07-20-2023 07-25-2023 Episodic Other non-traumatic joint disorders (1 source) Pain in right knee Onset: 02-11-2022 Resolved: 02-11-2022 Episodic Other non-traumatic joint disorders (1 source) Pain in left knee Onset: 02-11-2022 Resolved: 02-11-2022 Episodic Other screening for suspected conditions (not mental disorders or infectious disease) (7 sources) Cardiovascular stress test abnormal; Translations: [Other nonspecific abnormal results of function study of cardiovascular system] Onset: 11-03-2022 Resolved: 07-25-2023 Episodic Residual codes; unclassified (3 sources) Body mass index 20-24 - normal; Translations: [Body mass index (BMI) 24.0-24.9, adult] Onset: 07-25-2023 07-25-2023 Episodic Unclassified (1 source) Never smoked tobacco; Translations: [Never a smoker] Unclassified (1 source) Onset: 07-25-2023 07-25-2023 Urinary tract infections (6 sources) Acute urinary tract infection; Translations: [Urinary tract infection, site not specified] Onset: 10-26-2023 10-26-2023 Episodic Results Test Name Value Interpretation Reference Range Facility Cholesterol [Mass/volume] in Serum or PlasmaOrdered By: Charles Bazzi on 06-04-2024 Cholesterol [Mass/Vol] Cholesterol [Mass /volume] in Serum or Plasma 140-200 [facility] Comment on above: Chol less than 200 m g/dl low riskChol 201-239 mg/dl borderline riskChol 240 mg/dl and greater high risk Cholesterol in HDL [Mass/vol ume] in Serum or PlasmaOrdered By: Charles Bazzi on 06-04-2024 Cholesterol in HDL [Mass/Vol] Serum or plasma high density lipoprotein (HDL) cholesterol measurement 23-92 [facility] Comment on above: HDL CHOL ATP-III CLA SSIFICATION Cardiovascular RiskHDL > or equal to 60 mg/dL LOWHDL < 40 mg/dL HIGH Cholesterol in LDL Calc [Mas s/Vol]Ordered By: Charles Bazzi on 06-04-2024 Cholesterol in LDL [Mass/Vol] Cholesterol in LDL [Mass/volume] in Serum or Plasma by calculation 0-100 [facility] Comment on above: LDL ATP III CLASSIFI CATIONLDL less than 100 mg/dL OptimalLDL 100-129 mg/dL Near or above optimalLDL 130-159 mg/dL Borderline highLDL 160-189 mg/dL HighLDL greater than 189 mg/dL Very high Cholesterol in VLDL Calc [Ma ss/Vol]Ordered By: Charles Bazzi on 06-04-2024 Cholesterol in VLDL [Mass/Vol] Cholesterol in VLDL [Mass/volume] in Serum or Plasma by calculation [facility] Lipid Panelon 06-04-2024 Cholesterol [Mass/Vol] 171 mg/dL Normal 140-200 [facility] Comment on above: Result Comment: Chol less than 200 mg/dl low risk Chol 201-239 mg/dl borderline risk Chol 240 mg/dl and greater high risk Performed By: #### C BC, BMP, BNP, HS TROP, PTT, PT, HEPATIC, LACTIC, CK, DDIMER #### [facility] [address] [id number] [facility] Cholesterol in HDL [Mass/Vol] 56 mg/dL Normal 23-92 [facility] Comment on above: Result Comment: HDL CHOL ATP-III CLASSIFICATION Cardiovascular Risk HDL > or equal to 60 mg/dL LOW HDL < 40 mg/dL HIGH Performed By: #### C BC, BMP, BNP, HS TROP, PTT, PT, HEPATIC, LACTIC, CK, DDIMER #### [facility] [address] Cholesterol.total/Chol esterol in HDL [Mass ratio] 3.1 {ratio} Normal <5.0 [facility] Comment on above: Performed By: #### C BC, BMP, BNP, HS TROP, PTT, PT, HEPATIC, LACTIC, CK, DDIMER #### [facility] [address] [id number] [facility] LDL Cholesterol,Calculated 88 mg/dL Normal 0-100 [facility] Comment on above: Result Comment: LDL ATP III CLASSIFICATION LDL less than 100 mg/dL Optimal LDL 100-129 mg/dL Near or above optimal LDL 130-159 mg/dL Borderline high LDL 160-189 mg/dL High LDL greater than 189 mg/dL Very high Performed By: #### C BC, BMP, BNP, HS TROP, PTT, PT, HEPATIC, LACTIC, CK, DDIMER #### [facility] [address] [id number] [place] Triglyceride w/Reflex 136 mg/dL Normal 0-149 [facility] Comment on above: Result Comment: TRIG ATP III CLASSIFICATION TRIG less than 150 mg/dL Normal TRIG 150-199 mg/dL Borderline high TRIG 200-500 mg/dL High TRIG greater than 500 mg/dL Very high Standard traceable to the Center for Disease Conrtrol and Prevention (CDC) test method. Performed By: #### C BC, BMP, BNP, HS TROP, PTT, PT, HEPATIC, LACTIC, CK, DDIMER #### [facility] [address] VLDL CHOLESTEROL 27 mg/dL Normal [facility] Comment on above: Performed By: #### C BC, BMP, BNP, HS TROP, PTT, PT, HEPATIC, LACTIC, CK, DDIMER #### [facility] [address] Serum or plasma total choles terol/high density lipoprotein (HDL) cholesterol mass ratOrdered By: Charles Bazzi on 06-04-2024 Cholesterol.total/Chol esterol in HDL [Mass ratio] Serum or plasma total cholesterol/high density lipoprotein (HDL) cholesterol mass rat <5.0 [facility] Thyroid Stimulating Hormoneo n 06-04-2024 TSH Qn 1.94 m[IU]/L Normal 0.45-5.33 [facility] Comment on above: Result Comment: PERF ORMED BY: [place] [address] PATHOLOGIST [employer] INSTRUCTOR NICOLE SOW M.D. Performed By: #### C BC, BMP, BNP, HS TROP, PTT, PT, HEPATIC, LACTIC, CK, DDIMER #### [facility] [address] Thyrotropin [Units/volume] i n Serum or PlasmaOrdered By: Charles Bazzi on 06-04-2024 TSH Qn Thyrotropin [Units/volume] in Serum or Plasma 0.45-5.33 [facility] Triglyceride [Mass/volume] i n Serum or PlasmaOrdered By: Charles Bazzi on 06-04-2024 Triglyceride [Mass/Vol] Triglyceride [Mass/volume] in Serum or Plasma 0-149 [facility] Comment on above: TRIG ATP III CLASSIF ICATIONTRIG less than 150 mg/dL NormalTRIG 150-199 mg/dL Borderline highTRIG 200-500 mg/dL High TRIG greater than 500 mg/dL Very highStandard traceable to the Center for Disease Conrtrol and Prevention (CDC) test method. Aerobic Cultureon 05-31-2024 Aerobic Culture Comment right middle finger culture ORGANISM: Methicillin Resis Staph Aureus (O:MRSA) Quantity of Growth Light Growth Comment right middle finger culture No Anaerobes Isolated 3 Days Comment right middle finger culture Gram Stain Result 1+ White Blood Cells No Bacteria Seen Aerobic JOANNE Charge ([id number]) SUSCEPTIBILITY ORGANISM: O:MRSA ANTIBIOTIC INTERPRETATION JOANNE Azithromycin R >4 Ceftaroline S <0.5 Clindamycin S <0.25 Daptomycin S 1 Linezolid S 4 Oxacillin R >2 Penicillin R >2 Tetracycline S <4 Trimethoprim/Sulfamethoxa zole R >2 Vancomycin S 1 S = SUSCEPTIBLE I = INTERMEDIATE R = RESISTANT BLANK = DATA NOT AVAILABLE, OR DRUG NOT ADVISABLE OR TESTED R* = RESISTANCE DUE TO EXTENDED SPECTRUM BETA-LACTAMASES ESBL = EXTENDED SPECTRUM BETA-LACTAMASE TFG = THYMIDINE-DEPENDENT STRAIN TYRONE = BETA-LACTAMASE POSITIVE IB = INDUCIBLE BETA-LACTAMASE. APPEARS IN PLACE OF 'S' WITH SPECIES KNOWN TO POSSESS INDUCIBLE BETA-LACTAMASES. POTENTIALLY THEY MAY BECOME RESISTANT TO ALL B-LACTAM DRUGS. PERFORMED BY: [place] [address] PATHOLOGIST [employer] WORK INSTRUCTOR NICOLE SOW M.D. Normal [facility] Comment on above: Performed By: #### C BC, BMP, BNP, HS TROP, PTT, PT, HEPATIC, LACTIC, CK, DDIMER #### [facility] [address] Anaerobic cultureOrdered By: Amanda Patterson on 05-31-2024 Bacteria identified Anaer cx Nom (Unsp spec) Anaerobic culture [facility] Bacteria identified Aer cx N om (Unsp spec)Ordered By: Amanda Patterson on 05-31-2024 Aerobic Culture Abnormal [facility] Gram stain microscopyOrdered By: Amanda Patterson on 05-31-2024 Microscopic observation Gram stain Nom (Unsp spec) Gram stain microscopy [facility] XR hand RT min 3V*on 024 XR hand RT min 3V* [facility] [address] [place] [address] XRay Report Signed Patient: Evan Gill MR#: [id number] [birth year] : 1955 Acct:[id number] Age/Sex: 68 / F ADM Date: 05/30/24 Loc: [facility] [place]: Type: [facility] Attending Dr: Jorge A Haji DO Copies to: Jorge A Haji DO Ordering Provider: Jorge A Haji DO Date of Service: 05/30/24 XR/XR hand RT min 3V*: L03.011 - Cellulitis of right finger 4 views right hand plain film COMPARISON: None HISTORY: Right third digit cellulitis for one week ACUTE FINDINGS: At there is bony density which is posterior to the third metatarsal phalangeal head likely corresponding with avulsion fracture arising from the posterior corner of the base of the distal phalanx. This is seen with prior examination 05/22/2024. DEGENERATIVE CHANGE: Extensive arthritic changes of the third distal interphalangeal joint. SOFT TISSUE FINDINGS: Soft tissue swelling of the third digit distally. No subcutaneous air. No radiodense foreign body. No soft tissue calcification. JOINT EFFUSION: None POSTOP CHANGES: None BONY MINERALIZATION: Adequate XR/XR hand RT min 3V* IMPRESSION: Soft tissue swelling at distal third digit. This is adjacent to the distal interphalangeal joint. There is extensive degeneration and erosive changes of the joint. This may correspond with history of infectious etiology. May be consideration for inflammatory arthropathy. There is also concern for avulsion fracture from the posterior base of the distal phalanx. Age- indeterminate, likely remote. Impression dictated by: Cameron Lares M.D.05/30/2024 4:14 PM Dictation Location: [place] [address] Transcribed By: [facility] 05/30/24 1614 Dictated By: Cameron Lares DO 05/30/24 1600 Signed By: 05/30/24 1614 Normal [facility] Basophils Auto (Bld) [#/Vol] Ordered By: Chris Henning on 05-23-2024 Basophils (Bld) [#/Vol] Automated basophil count 0.0-0.2 [facility] Basophils/100 WBC Auto (Bld) Ordered By: Chris Henning on 05-23-2024 Basophils/100 WBC (Bld) Automated basophil % . [facility] Blood Cultureon 05-23-2024 Bacteria identified Cx Nom (Bld) Blood Culture Results No Growth 5 Days PERFORMED BY: [place] [address] PATHOLOGIST SOCIAL WORK INSTRUCTOR NICOLE SOW M.D. Normal [facility] Comment on above: Performed By: #### C BC, BMP, BNP, HS TROP, PTT, PT, HEPATIC, LACTIC, CK, DDIMER #### [address] Bacteria identified Cx Nom (Bld) Blood Culture Results No Growth 5 Days PERFORMED BY: [place] [address] PATHOLOGIST SOCIAL WORK INSTRUCTOR NICOLE SOW M.D. Normal [facility] Comment on above: Performed By: #### C BC, BMP, BNP, HS TROP, PTT, PT, HEPATIC, LACTIC, CK, DDIMER #### [address] Complete Blood Count Auto Di ffon 05-23-2024 Basophils (Bld) [#/Vol] 0.1 10*3/uL Normal 0.0-0.2 [facility] Comment on above: Result Comment: PERF ORMED BY: [place] [address] PATHOLOGIST SOCIAL WORK INSTRUCTOR NICOLE SOW M.D. Performed By: #### C BC, BMP, BNP, HS TROP, PTT, PT, HEPATIC, LACTIC, CK, DDIMER #### [address] Basophils/100 WBC (Bld) 0.8 % Normal . [facility] Comment on above: Performed By: #### C BC, BMP, BNP, HS TROP, PTT, PT, HEPATIC, LACTIC, CK, DDIMER #### [address] Eosinophils (Bld) [#/Vol] 0.2 10*3/uL Normal 0.0-0.45 [facility] Comment on above: Performed By: #### C BC, BMP, BNP, HS TROP, PTT, PT, HEPATIC, LACTIC, CK, DDIMER #### [address] Eosinophils/100 WBC (Bld) 1.6 % Normal . [facility] Comment on above: Performed By: #### C BC, BMP, BNP, HS TROP, PTT, PT, HEPATIC, LACTIC, CK, DDIMER #### [address] Erythrocyte distribution width (RBC) [Ratio] 14.9 % Normal 11.9-15.3 [facility] Comment on above: Performed By: #### C BC, BMP, BNP, HS TROP, PTT, PT, HEPATIC, LACTIC, CK, DDIMER #### [address] Hematocrit (Bld) [Volume fraction] 32.5 % Low 34.0-46.4 [facility] Comment on above: Performed By: #### C BC, BMP, BNP, HS TROP, PTT, PT, HEPATIC, LACTIC, CK, DDIMER #### [address] Hemoglobin (Bld) [Mass/Vol] 11.0 g/dL Low 11.8-15.4 [facility] Comment on above: Performed By: #### C BC, BMP, BNP, HS TROP, PTT, PT, HEPATIC, LACTIC, CK, DDIMER #### [address] Lymphocytes (Bld) [#/Vol] 0.8 10*3/uL Low 1.00-4.8 [facility] Comment on above: Performed By: #### C BC, BMP, BNP, HS TROP, PTT, PT, HEPATIC, LACTIC, CK, DDIMER #### [address] Lymphocytes/100 WBC (Bld) 9.1 % Normal . [facility] Comment on above: Performed By: #### C BC, BMP, BNP, HS TROP, PTT, PT, HEPATIC, LACTIC, CK, DDIMER #### [address] MCH (RBC) [Entitic mass] 30.3 pg Normal 24.7-34.3 [facility] Comment on above: Performed By: #### C BC, BMP, BNP, HS TROP, PTT, PT, HEPATIC, LACTIC, CK, DDIMER #### [address] MCV (RBC) [Entitic vol] 89.9 fL Normal 80-100 [facility] Comment on above: Performed By: #### C BC, BMP, BNP, HS TROP, PTT, PT, HEPATIC, LACTIC, CK, DDIMER #### [address] Mean Corpuscular HGB Conc 33.7 g/dL Normal 32.0-35.0 [facility] Comment on above: Performed By: #### C BC, BMP, BNP, HS TROP, PTT, PT, HEPATIC, LACTIC, CK, DDIMER #### [address] Monocytes (Bld) [#/Vol] 0.8 10*3/uL Normal 0.0-0.8 [facility] Comment on above: Performed By: #### C BC, BMP, BNP, HS TROP, PTT, PT, HEPATIC, LACTIC, CK, DDIMER #### [address] Monocytes/100 WBC (Bld) 20.76 % High 0.00-20.00 [facility] Comment on above: Result Comment: For adults in ED, MDW > 20.0 may be associated with a higher risk of sepsis during the first 12 hrs of hospital admission Performed By: #### C BC, BMP, BNP, HS TROP, PTT, PT, HEPATIC, LACTIC, CK, DDIMER #### [address] [address] [place] Monocytes/100 WBC (Bld) 8.2 % Normal . [facility] Comment on above: Performed By: #### C BC, BMP, BNP, HS TROP, PTT, PT, HEPATIC, LACTIC, CK, DDIMER #### [address] Neutrophils (Bld) [#/Vol] 7.4 10*3/uL Normal 1.8-7.7 [facility] Comment on above: Performed By: #### C BC, BMP, BNP, HS TROP, PTT, PT, HEPATIC, LACTIC, CK, DDIMER #### [address] Neutrophils/100 WBC (Bld) 80.3 % Normal . [facility] Comment on above: Performed By: #### C BC, BMP, BNP, HS TROP, PTT, PT, HEPATIC, LACTIC, CK, DDIMER #### [address] NRBC% 0.0 /100{WBC} Normal 0-0.5 [facility] Comment on above: Performed By: #### C BC, BMP, BNP, HS TROP, PTT, PT, HEPATIC, LACTIC, CK, DDIMER #### [address] Platelet mean volume (Bld) [Entitic vol] 7.0 fL Normal 6.3-10.7 [facility] Comment on above: Performed By: #### C BC, BMP, BNP, HS TROP, PTT, PT, HEPATIC, LACTIC, CK, DDIMER #### [address] Platelets (Bld) [#/Vol] 265 10*3/uL Normal 150-450 [facility] Comment on above: Performed By: #### C BC, BMP, BNP, HS TROP, PTT, PT, HEPATIC, LACTIC, CK, DDIMER #### [address] RBC (Bld) [#/Vol] 3.61 10*6/uL Normal 3.60-5.00 [facility] Comment on above: Performed By: #### C BC, BMP, BNP, HS TROP, PTT, PT, HEPATIC, LACTIC, CK, DDIMER #### [facility] [address] [place] [address] [place] WBC (Bld) [#/Vol] 9.2 10*3/uL Normal 3.8-11.6 [facility] Comment on above: Performed By: #### C BC, BMP, BNP, HS TROP, PTT, PT, HEPATIC, LACTIC, CK, DDIMER #### [facility] [address] Eosinophils Auto (Bld) [#/Vo l]Ordered By: Chris Henning on 05-23-2024 Eosinophils (Bld) [#/Vol] Automated eosinophil count 0.0-0.45 [facility] Eosinophils/100 WBC Auto (Bl d)Ordered By: Chris Henning on 05-23-2024 Eosinophils/100 WBC (Bld) Automated eosinophil % . [facility] Erythrocyte distribution wid th Auto (RBC) [Ratio]Ordered By: Chris Henning on 05-23-2024 Erythrocyte distribution width (RBC) [Ratio] Erythrocyte distribution width [Ratio] by Automated count 11.9-15.3 [facility] Hematocrit Auto (Bld) [Volum e fraction]Ordered By: Chris Henning on 05-23-2024 Hematocrit (Bld) [Volume fraction] Hematocrit [Volume Fraction] of Blood by Automated count Low 34.0-46.4 [facility] Hemoglobin [Mass/volume] in BloodOrdered By: Chris Henning on 05-23-2024 Hemoglobin (Bld) [Mass/Vol] Hemoglobin [Mass/volume] in Blood Low 11.8-15.4 [facility] - Microbiology an d Antimicrobial susceptibilityOrdered By: Chris Henning on 05-23-2024 Bacteria identified Cx Nom (Bld) [facility] Bacteria identified Cx Nom (Bld) [facility] Leukocytes [#/volume] correc french for nucleated erythrocytes in Blood by Automated counOrdered By: Chris Henning on 05-23-2024 WBC corrected for nucl RBC Auto (Bld) [#/Vol] Leukocytes [#/volume] corrected for nucleated erythrocytes in Blood by Automated coun 3.8-11.6 [facility] Lymphocytes Auto (Bld) [#/Vo l]Ordered By: Chris Henning on 05-23-2024 Lymphocytes (Bld) [#/Vol] Lymphocytes [#/volume] in Blood by Automated count Low 1.00-4.8 [facility] Lymphocytes/100 WBC Auto (Bl d)Ordered By: Chris Henning on 05-23-2024 Lymphocytes/100 WBC (Bld) Lymphocytes/100 leukocytes in Blood by Automated count . [facility] MCH Auto (RBC) [Entitic mass ]Ordered By: Chris Henning on 05-23-2024 MCH (RBC) [Entitic mass] MCH [Entitic mass] by Automated count 24.7-34.3 [facility] MCHC Auto (RBC) [Mass/Vol]Or dered By: Chris Henning on 05-23-2024 MCHC (RBC) [Mass/Vol] MCHC [Mass/volume] by Automated count 32.0-35.0 [facility] MCV Auto (RBC) [Entitic vol] Ordered By: Chris Henning on 05-23-2024 MCV (RBC) [Entitic vol] MCV [Entitic volume] by Automated count 80-100 [facility] Monocyte distribution width [Entitic volume] in Blood by AutomatedOrdered By: Chris Henning on 05-23-2024 Monocyte distribution width Auto (Bld) [Entitic vol] Monocyte distribution width [Entitic volume] in Blood by Automated High 0.00-20.00 [facility] Comment on above: For adults in ED, MD W > 20.0 may be associated with a higher risk of sepsis during the first 12 hrs of hospital admission Monocytes Auto (Bld) [#/Vol] Ordered By: Chris Henning on 05-23-2024 Monocytes (Bld) [#/Vol] Automated blood monocyte count 0.0-0.8 [facility] Monocytes/100 WBC Auto (Bld) Ordered By: Chris Henning on 05-23-2024 Monocytes/100 WBC (Bld) Automated monocyte % . [facility] Neutrophils Auto (Bld) [#/Vo l]Ordered By: Chris Henning on 05-23-2024 Neutrophils (Bld) [#/Vol] Neutrophils [#/volume] in Blood by Automated count 1.8-7.7 [facility] Neutrophils/100 WBC Auto (Bl d)Ordered By: Chris Henning on 05-23-2024 Neutrophils/100 WBC (Bld) Automated neutrophil % . [facility] Nucleated erythrocytes [Pres ence] in Blood by Automated countOrdered By: Chris Henning on 05-23-2024 Nucleated RBC Auto Ql (Bld) Nucleated erythrocytes [Presence] in Blood by Automated count 0-0.5 [facility] Platelet mean volume Auto (B ld) [Entitic vol]Ordered By: Chris Henning on 05-23-2024 Platelet mean volume (Bld) [Entitic vol] Platelet mean volume [Entitic volume] in Blood by Automated count 6.3-10.7 [facility] Platelets Auto (Bld) [#/Vol] Ordered By: Chris Henning on 05-23-2024 Platelets (Bld) [#/Vol] Platelets [#/volume] in Blood by Automated count 150-450 [facility] RBC Auto (Bld) [#/Vol]Ordere d By: Chris Henning on 05-23-2024 RBC (Bld) [#/Vol] Erythrocytes [#/volu me] in Blood by Automated count 3.60-5.00 [facility] WBC Auto (Bld) [#/Vol]Ordere d By: Chris Henning on 05-23-2024 WBC (Bld) [#/Vol] Leukocytes [#/volume ] in Blood by Automated count 3.8-11.6 [facility] Basic Metabolic Panelon 05-10 Anion gap [Moles/Vol] 13.0 mmol/L Normal 6.0-15.0 [facility] Comment on above: Performed By: #### C BC, BMP, BNP, HS TROP, PTT, PT, HEPATIC, LACTIC, CK, DDIMER #### [facility] [address] Calcium [Mass/Vol] 8.2 mg/dL Low 8.6-10.3 [facility] Comment on above: Performed By: #### C BC, BMP, BNP, HS TROP, PTT, PT, HEPATIC, LACTIC, CK, DDIMER #### [address] Chloride [Moles/Vol] 106 mmol/L Normal 98-107 [facility] Comment on above: Performed By: #### C BC, BMP, BNP, HS TROP, PTT, PT, HEPATIC, LACTIC, CK, DDIMER #### [address] CO2 [Moles/Vol] 23.6 mmol/L Normal 21.0-31.0 [facility] Comment on above: Performed By: #### C BC, BMP, BNP, HS TROP, PTT, PT, HEPATIC, LACTIC, CK, DDIMER #### [address] Creatinine [Mass/Vol] 0.56 mg/dL Low 0.60-1.20 [facility] Comment on above: Performed By: #### C BC, BMP, BNP, HS TROP, PTT, PT, HEPATIC, LACTIC, CK, DDIMER #### [address] Creatinine Clr Calc Pharmacy 63.82 Normal [facility] Comment on above: Result Comment: PERF ORMED BY: [place] [address] PATHOLOGIST SOCIAL WORK INSTRUCTOR NICOLE SOW M.D. Performed By: #### C BC, BMP, BNP, HS TROP, PTT, PT, HEPATIC, LACTIC, CK, DDIMER #### [address] GFR/1.73 sq M.predicted MDRD (S/P/Bld) [Vol rate/Area] mL/min/{1.73_m2} Normal [facility] Comment on above: Performed By: #### C BC, BMP, BNP, HS TROP, PTT, PT, HEPATIC, LACTIC, CK, DDIMER #### [address] Glucose [Mass/Vol] 129 mg/dL High 70-100 [facility] Comment on above: Result Comment: [facility] Glucose Reference Range is dependent on time and content of last meal. Glucose of more than 200 mg/dL in a nonstressed, ambulatory subject supports the diagnosis of Diabetes Mellitus. ADA recommended reference range Performed By: #### C BC, BMP, BNP, HS TROP, PTT, PT, HEPATIC, LACTIC, CK, DDIMER #### [address] Potassium [Moles/Vol] 3.6 mmol/L Normal 3.5-5.1 [facility] Comment on above: Performed By: #### C BC, BMP, BNP, HS TROP, PTT, PT, HEPATIC, LACTIC, CK, DDIMER #### [facility] [address] Sodium [Moles/Vol] 139 mmol/L Normal 136-145 [facility] Comment on above: Performed By: #### C BC, BMP, BNP, HS TROP, PTT, PT, HEPATIC, LACTIC, CK, DDIMER #### [address] Urea nitrogen [Mass/Vol] 18 mg/dL Normal 7-25 [facility] Comment on above: Performed By: #### C BC, BMP, BNP, HS TROP, PTT, PT, HEPATIC, LACTIC, CK, DDIMER #### [address] Basophils Auto (Bld) [#/Vol] Ordered By: Chris Henning on 05-22-2024 Basophils (Bld) [#/Vol] Automated basophil count 0.0-0.2 [facility] Basophils/100 WBC Auto (Bld) Ordered By: Chris Henning on 05-22-2024 Basophils/100 WBC (Bld) Automated basophil % . [facility] Blood Cultureon 05-22-2024 Bacteria identified Cx Nom (Bld) NO GROWTH 5 DAYS PERFORMED BY: [place] [address] PATHOLOGIST SOCIAL WORK INSTRUCTOR NICOLE Bull [facility] Comment on above: Performed By: #### C BC, BMP, BNP, HS TROP, PTT, PT, HEPATIC, LACTIC, CK, DDIMER #### [facility] [address] Bacteria identified Cx Nom (Bld) Results called at 0620 on 05/23/24 Gram Stain Gram Positive Cocci in Clusters ORGANISM: Methicillin Resis Staph Aureus (O:MRSA) Aerobic JOANNE Charge (PCMIC38) SUSCEPTIBILITY ORGANISM: O:MRSA ANTIBIOTIC INTERPRETATION JOANNE Azithromycin R >4 Ceftaroline S 1 Daptomycin S 1 Linezolid S 4 Oxacillin R >2 Penicillin R >2 Tetracycline S <4 Trimethoprim/Sulfamethoxa zole R >2 Vancomycin S 1 Results called at 0620 on 05/23/24 Staphylococcus aureus DNA [Presence] by ELLIOTT with non-probe detection in Positive blood culture Detected Bacteroides fragilis DNA [Presence] by ELLIOTT with non-probe detection in Positive blood culture Not detected Ana auris DNA [Presence] by ELLIOTT with non-probe detection in Positive blood culture Not detected Ana albicans DNA [Presence] by ELLIOTT with non-probe detection in Positive blood culture Not detected Acinetobacter calcoaceticus-baumannii complex DNA [Presence] by ELLIOTT with non-probe detection in Positive blood culture Not detected Cryptococcus neoformans or gattii 9002 Not detected Cephalosporin resistance blaCTX-M gene [Presence] by Molecular method Not Applicable Escherichia coli Not detected Enterobacterales DNA [Presence] by ELLIOTT with non-probe detection in Positive blood culture Not detected Enterobacter cloacae complex DNA [Presence] by ELLIOTT with non-probe detection in Positive blood culture Not detected Staphylococcus epidermidis DNA [Presence] by ELLIOTT with non-probe detection in Positive blood culture Not detected Enterococcus faecalis DNA [Presence] by ELLIOTT with non-probe detection in Positive blood culture Not detected Enterococcus faecium DNA [Presence] by ELLIOTT with non-probe detection in Positive blood culture Not detected Ana glabrata DNA [Presence] by ELLIOTT with non-probe detection in Positive blood culture Not detected Haemophilus influenzae (reported as H flu) Not detected Carbapenem resistance blaIMP gene [Presence] by Molecular method Not Applicable Klebsiella aerogenes DNA [Presence] by ELLIOTT with non-probe detection in Positive blood culture Not detected Klebsiella pneumoniae+Klebsiella variicola+Klebsiella quasipneumoniae DNA [Presence] by ELLIOTT with non-probe detection in Positive blood culture Not detected Klebsiella oxytoca DNA [Presence] by ELLIOTT with non-probe detection in Positive blood culture Not detected Carbapenem resistance blaKPC gene [Presence] by Molecular method Not Applicable Ana krusei DNA [Presence] by ELLIOTT with non-probe detection in Positive blood culture Not detected Listeria monocytogenes (reported as listeriosis) Not detected Staphylococcus lugdunensis DNA [Presence] by ELLIOTT with non-probe detection in Positive blood culture Not detected Methicillin resistance mecA+mecC genes+SCCmec+OrfX junction [Presence] by Molecular method Detected Carbapenem resistance blaNDM gene [Presence] by Molecular method Not Applicable Neisseria meningitidis - reported as meningococcal disease Not detected Carbapenem resistance mariella OXA-48-like gene [Presence] by Molecular method Not Applicable Ana parapsilosis DNA [Presence] by ELLIOTT with non-probe detection in Positive blood culture Not detected Streptococcus pneumoniae - reported at [facility] Not detected Proteus sp DNA [Presence] by ELLIOTT with non-probe detection in Positive blood culture Not detected Pseudomonas aeruginosa DNA [Presence] by ELLIOTT with non-probe detection in Positive blood culture Not detected Salmonella sp DNA [Presence] by ELLIOTT with non-probe detection in Positive blood culture Not detected Serratia marcescens DNA [Presence] by ELLIOTT with non-probe detection in Positive blood culture Not detected Staphylococcus sp DNA [Presence] by ELLIOTT with non-probe detection in Positive blood culture Detected Stenotrophomonas maltophilia DNA [Presence] by ELLIOTT with non-probe detection in Positive blood culture Not detected Group A (Streptococcus pyogenes) [id number] Not detected Group B Strep (Streptococcus agalactiae) Not detected Streptococcus sp DNA [Presence] by ELLIOTT with non-probe detection in Positive blood culture Not detected Ana tropicalis DNA [Presence] by ELLIOTT with non-probe detection in Positive blood culture Not detected Vancomycin resistance Ce + vanB genes [Presence] by Molecular method Not Applicable Carbapenem resistance blaVIM gene [Presence] by Molecular method Not Applicable Colistin resistance mcr-1 gene [Presence] by Molecular method Not Applicable Methicillin resistance mecA+mecC genes [Presence] in Isolate or Specimen by Molecular genetics method Not Applicable RESIS. GENE COMMENT 1 Antimicrobial resistance can occur via multiple RESIS. GENE COMMENT 2 mechanisms. A Not Detected result for antimicrobial RESIS. GENE COMMENT 3 resistance gene(s) does not indicate antimicrobial RESIS. GENE COMMENT 4 susceptibility. S = SUSCEPTIBLE I = I (more content not included)... Normal [facility] Comment on above: Performed By: #### C BC, BMP, BNP, HS TROP, PTT, PT, HEPATIC, LACTIC, CK, DDIMER #### [facility] [address] Calcium [Mass/volume] in Ser um or PlasmaOrdered By: Chris Henning on 05-22-2024 Calcium [Mass/Vol] Calcium [Mass/volume ] in Serum or Plasma Low 8.6-10.3 [facility] Carbon dioxide, total [Moles /volume] in Serum or PlasmaOrdered By: Chris Henning on 05-22-2024 CO2 [Moles/Vol] Carbon dioxide, tota l [Moles/volume] in Serum or Plasma 21.0-31.0 [facility] Chloride [Moles/volume] in S jeevan or PlasmaOrdered By: Chris Henning on 05-22-2024 Chloride [Moles/Vol] Chloride [Moles/vol ume] in Serum or Plasma 98-107 [facility] Complete Blood Count Auto Di ffon 05-22-2024 Basophils (Bld) [#/Vol] 0.1 10*3/uL Normal 0.0-0.2 [facility] Comment on above: Result Comment: PERF ORMED BY: [place] [address] PATHOLOGIST SOCIAL WORK INSTRUCTOR NICOLE SOW M.D. Performed By: #### C BC, BMP, BNP, HS TROP, PTT, PT, HEPATIC, LACTIC, CK, DDIMER #### [facility] [address] [place] [address] [place] Basophils/100 WBC (Bld) 0.6 % Normal . [facility] Comment on above: Performed By: #### C BC, BMP, BNP, HS TROP, PTT, PT, HEPATIC, LACTIC, CK, DDIMER #### [facility] [address] [place] [address] [place] Eosinophils (Bld) [#/Vol] 0.1 10*3/uL Normal 0.0-0.45 [facility] Comment on above: Performed By: #### C BC, BMP, BNP, HS TROP, PTT, PT, HEPATIC, LACTIC, CK, DDIMER #### [address] Eosinophils/100 WBC (Bld) 1.1 % Normal . [facility] Comment on above: Performed By: #### C BC, BMP, BNP, HS TROP, PTT, PT, HEPATIC, LACTIC, CK, DDIMER #### [address] Erythrocyte distribution width (RBC) [Ratio] 14.3 % Normal 11.9-15.3 [facility] Comment on above: Performed By: #### C BC, BMP, BNP, HS TROP, PTT, PT, HEPATIC, LACTIC, CK, DDIMER #### [address] Hematocrit (Bld) [Volume fraction] 34.5 % Normal 34.0-46.4 [facility] Comment on above: Performed By: #### C BC, BMP, BNP, HS TROP, PTT, PT, HEPATIC, LACTIC, CK, DDIMER #### [address] Hemoglobin (Bld) [Mass/Vol] 11.7 g/dL Low 11.8-15.4 [facility] Comment on above: Performed By: #### C BC, BMP, BNP, HS TROP, PTT, PT, HEPATIC, LACTIC, CK, DDIMER #### [address] Lymphocytes (Bld) [#/Vol] 0.9 10*3/uL Low 1.00-4.8 [facility] Comment on above: Performed By: #### C BC, BMP, BNP, HS TROP, PTT, PT, HEPATIC, LACTIC, CK, DDIMER #### [address] Lymphocytes/100 WBC (Bld) 9.0 % Normal . [facility] Comment on above: Performed By: #### C BC, BMP, BNP, HS TROP, PTT, PT, HEPATIC, LACTIC, CK, DDIMER #### [address] MCH (RBC) [Entitic mass] 30.3 pg Normal 24.7-34.3 [facility] Comment on above: Performed By: #### C BC, BMP, BNP, HS TROP, PTT, PT, HEPATIC, LACTIC, CK, DDIMER #### [address] MCV (RBC) [Entitic vol] 89.5 fL Normal 80-100 [facility] Comment on above: Performed By: #### C BC, BMP, BNP, HS TROP, PTT, PT, HEPATIC, LACTIC, CK, DDIMER #### [address] Mean Corpuscular HGB Conc 33.9 g/dL Normal 32.0-35.0 [facility] Comment on above: Performed By: #### C BC, BMP, BNP, HS TROP, PTT, PT, HEPATIC, LACTIC, CK, DDIMER #### [address] Monocytes (Bld) [#/Vol] 0.8 10*3/uL Normal 0.0-0.8 [facility] Comment on above: Performed By: #### C BC, BMP, BNP, HS TROP, PTT, PT, HEPATIC, LACTIC, CK, DDIMER #### [address] Monocytes/100 WBC (Bld) 19.47 % Normal 0.00-20.00 [facility] Comment on above: Performed By: #### C BC, BMP, BNP, HS TROP, PTT, PT, HEPATIC, LACTIC, CK, DDIMER #### [address] Monocytes/100 WBC (Bld) 7.4 % Normal . [facility] Comment on above: Performed By: #### C BC, BMP, BNP, HS TROP, PTT, PT, HEPATIC, LACTIC, CK, DDIMER #### [address] Neutrophils (Bld) [#/Vol] 8.5 10*3/uL High 1.8-7.7 [facility] Comment on above: Performed By: #### C BC, BMP, BNP, HS TROP, PTT, PT, HEPATIC, LACTIC, CK, DDIMER #### [address] Neutrophils/100 WBC (Bld) 81.9 % Normal . [facility] Comment on above: Performed By: #### C BC, BMP, BNP, HS TROP, PTT, PT, HEPATIC, LACTIC, CK, DDIMER #### [address] NRBC% 0.0 /100{WBC} Normal 0-0.5 [facility] Comment on above: Performed By: #### C BC, BMP, BNP, HS TROP, PTT, PT, HEPATIC, LACTIC, CK, DDIMER #### [address] Platelet mean volume (Bld) [Entitic vol] 6.8 fL Normal 6.3-10.7 [facility] Comment on above: Performed By: #### C BC, BMP, BNP, HS TROP, PTT, PT, HEPATIC, LACTIC, CK, DDIMER #### [address] Platelets (Bld) [#/Vol] 265 10*3/uL Normal 150-450 [facility] Comment on above: Performed By: #### C BC, BMP, BNP, HS TROP, PTT, PT, HEPATIC, LACTIC, CK, DDIMER #### [address] RBC (Bld) [#/Vol] 3.85 10*6/uL Normal 3.60-5.00 [facility] Comment on above: Performed By: #### C BC, BMP, BNP, HS TROP, PTT, PT, HEPATIC, LACTIC, CK, DDIMER #### [address] [place] [address] [facility] WBC (Bld) [#/Vol] 10.4 10*3/uL Normal 3.8-11.6 [facility] Comment on above: Performed By: #### C BC, BMP, BNP, HS TROP, PTT, PT, HEPATIC, LACTIC, CK, DDIMER #### [facility] [address] [id number] [facility] Creatinine [Mass/volume] in Serum or PlasmaOrdered By: Chris Henning on 05-22-2024 Creatinine [Mass/Vol] Creatinine [Mass/v olume] in Serum or Plasma Low 0.60-1.20 [facility] Eosinophils Auto (Bld) [#/Vo l]Ordered By: Chris Henning on 05-22-2024 Eosinophils (Bld) [#/Vol] Automated eosinophil count 0.0-0.45 [facility] Eosinophils/100 WBC Auto (Bl d)Ordered By: Chris Henning on 05-22-2024 Eosinophils/100 WBC (Bld) Automated eosinophil % . [facility] Erythrocyte distribution wid th Auto (RBC) [Ratio]Ordered By: Chris Henning on 05-22-2024 Erythrocyte distribution width (RBC) [Ratio] Erythrocyte distribution width [Ratio] by Automated count 11.9-15.3 [facility] Glucose [Mass/volume] in Ser um or PlasmaOrdered By: Chris Henning on 05-22-2024 Glucose [Mass/Vol] Glucose [Mass/volume ] in Serum or Plasma High 70-100 [facility] Comment on above: ADA recommended refe rence rangeRandom Glucose Reference Range is dependent on time and content of last meal. Glucose of more than 200 mg/dL in a nonstressed, ambulatory subject supports the diagnosis of Diabetes Mellitus. Hematocrit Auto (Bld) [Volum e fraction]Ordered By: Chris Henning on 05-22-2024 Hematocrit (Bld) [Volume fraction] Hematocrit [Volume Fraction] of Blood by Automated count 34.0-46.4 [facility] Hemoglobin [Mass/volume] in BloodOrdered By: Chris Henning 05-22-2024 Hemoglobin (Bld) [Mass/Vol] Hemoglobin [Mass/volume] in Blood Low 11.8-15.4 [facility] Laboratory - Microbiology an d Antimicrobial susceptibilityOrdered By: Chris Henning on 05-22-2024 Bacteria identified Cx Nom (Bld) NO GROWTH 5 DAYS [facility] Bacteria identified Cx Nom (Bld) Abnormal [facility] Leukocytes [#/volume] correc french for nucleated erythrocytes in Blood by Automated counOrdered By: Chris Henning on 05-22-2024 WBC corrected for nucl RBC Auto (Bld) [#/Vol] Leukocytes [#/volume] corrected for nucleated erythrocytes in Blood by Automated coun 3.8-11.6 [facility] Lymphocytes Auto (Bld) [#/Vo l]Ordered By: Chris Henning on 05-22-2024 Lymphocytes (Bld) [#/Vol] Lymphocytes [#/volume] in Blood by Automated count Low 1.00-4.8 [facility] Lymphocytes/100 WBC Auto (Bl d)Ordered By: Chris Henning on 05-22-2024 Lymphocytes/100 WBC (Bld) Lymphocytes/100 leukocytes in Blood by Automated count . [facility] MCH Auto (RBC) [Entitic mass ]Ordered By: Chris Henning on 05-22-2024 MCH (RBC) [Entitic mass] MCH [Entitic mass] by Automated count 24.7-34.3 [facility] MCHC Auto (RBC) [Mass/Vol]Or dered By: Chris Henning on 05-22-2024 MCHC (RBC) [Mass/Vol] MCHC [Mass/volume] by Automated count 32.0-35.0 [facility] MCV Auto (RBC) [Entitic vol] Ordered By: Chris Henning on 05-22-2024 MCV (RBC) [Entitic vol] MCV [Entitic volume] by Automated count 80-100 [facility] Monocyte distribution width [Entitic volume] in Blood by AutomatedOrdered By: Chris Henning on 05-22-2024 Monocyte distribution width Auto (Bld) [Entitic vol] Monocyte distribution width [Entitic volume] in Blood by Automated 0.00-20.00 [facility] Monocytes Auto (Bld) [#/Vol] Ordered By: Chris Henning on 05-22-2024 Monocytes (Bld) [#/Vol] Automated blood monocyte count 0.0-0.8 [facility] Monocytes/100 WBC Auto (Bld) Ordered By: Chris Henning on 05-22-2024 Monocytes/100 WBC (Bld) Automated monocyte % . [facility] Neutrophils Auto (Bld) [#/Vo l]Ordered By: Chris Henning on 05-22-2024 Neutrophils (Bld) [#/Vol] Neutrophils [#/volume] in Blood by Automated count High 1.8-7.7 [facility] Neutrophils/100 WBC Auto (Bl d)Ordered By: Chris Henning on 05-22-2024 Neutrophils/100 WBC (Bld) Automated neutrophil % . [facility] No Panel InformationOrdered By: Chris Henning on 05-22-2024 Bacterial ID (NA Multiplex Assay) [facility] Estimated GFR (CKD-EPI) > 60.0 mL/Min [facility] Creatinine Clearance (Chem 63.82 [facility] Nucleated erythrocytes [Pres ence] in Blood by Automated countOrdered By: Chris Henning on 05-22-2024 Nucleated RBC Auto Ql (Bld) Nucleated erythrocytes [Presence] in Blood by Automated count 0-0.5 [facility] Platelet mean volume Auto (B ld) [Entitic vol]Ordered By: Chris Henning on 05-22-2024 Platelet mean volume (Bld) [Entitic vol] Platelet mean volume [Entitic volume] in Blood by Automated count 6.3-10.7 [facility] Platelets Auto (Bld) [#/Vol] Ordered By: Chris Henning on 05-22-2024 Platelets (Bld) [#/Vol] Platelets [#/volume] in Blood by Automated count 150-450 [facility] Potassium [Moles/volume] in Serum or PlasmaOrdered By: Chris Henning on 05-22-2024 Potassium [Moles/Vol] Potassium [Moles/v olume] in Serum or Plasma 3.5-5.1 [facility] RBC Auto (Bld) [#/Vol]Ordere d By: Chris Henning on 05-22-2024 RBC (Bld) [#/Vol] Erythrocytes [#/volu me] in Blood by Automated count 3.60-5.00 [facility] Serum or plasma anion gap de terminationOrdered By: Chris Henning on 05-22-2024 Anion gap [Moles/Vol] Serum or plasma an ion gap determination 6.0-15.0 [facility] Sodium [Moles/volume] in Ser um or PlasmaOrdered By: Chris Henning on 05-22-2024 Sodium [Moles/Vol] Sodium [Moles/volume ] in Serum or Plasma 136-145 [facility] Urea nitrogen [Mass/volume] in Serum or PlasmaOrdered By: Chris Henning on 05-22-2024 Urea nitrogen [Mass/Vol] Urea nitrogen [Mass/volume] in Serum or Plasma 7-25 [facility] WBC Auto (Bld) [#/Vol]Ordere d By: Chris Henning on 05-22-2024 WBC (Bld) [#/Vol] Leukocytes [#/volume ] in Blood by Automated count 3.8-11.6 [facility] X-ray reportOrdered By: Debora Sanchez on 05-22-2024 Study report [facility] [place] [address] XRay Report Signed Patient: Evan Gill MR#: [id number] : 1955 Acct:[id number] Age/Sex: 68 / F ADM Date: 4 Loc: ER Room: Type: [facility] ER Attending Dr: Copies to: Chris Henning APRN~ Ordering Provider: Chris Henning APRN Date of Service: 05/22/24 XR/XR finger RT 3rd digit: Skin/Abscess/Foreign Body RIGHT THIRD FINGER- 3 views CLINICAL HISTORY: Erythema and swelling at the right middle finger for the pastcouple days. COMPARISON: None AP view of the hand as well as oblique and lateral views of the third finger were obtained. There is osteopenia. No acute fracture, dislocation or bony destruction is identified. There is narrowing of some of the interphalangeal joint spaces, greatest at the distal third and fifth fingers. There is also hypertrophy and subchondral cystic change. Mild degenerative change is also noted at the first carpal metacarpal joint. Soft tissue swelling is present at the third finger, greater distally. There is no subcutaneous air or radiopaque foreign bodies. XR/XR finger RT 3rd digit IMPRESSION: OSTEOPENIA AND DEGENERATIVE CHANGES. NO ACUTE BONY FINDINGS. SOFT TISSUE SWELLING AT THE THIRD FINGER. Impression dictated by: Princess Sanchez M.D.05/22/2024 12:50 PM Dictation Location: [place] [address] Transcribed By: NEWTON 05/22/24 1250 Dictated By: Princess Sanchez MD 05/22/24 1245 Signed By: 05/22/24 1250 [facility] Work Phone: XR finger RT 3rd digiton XR finger RT 3rd digit [facility] [place] [address] [place] [address] XRay Report Signed Patient: Evan Gill MR#: [id number] : 1955 Acct:[id number] Age/Sex: 68 / F ADM Date: 05/22/24 Loc: ER Room: Type: [facility] ER Attending Dr: Copies to: Chris Henning APRN Ordering Provider: Chris Henning APRN Date of Service: 05/22/24 XR/XR finger RT 3rd digit: Skin/Abscess/Foreign Body RIGHT THIRD FINGER- 3 views CLINICAL HISTORY: Erythema and swelling at the right middle finger for the past couple days. COMPARISON: None AP view of the hand as well as oblique and lateral views of the third finger were obtained. There is osteopenia. No acute fracture, dislocation or bony destruction is identified. There is narrowing of some of the interphalangeal joint spaces, greatest at the distal third and fifth fingers. There is also hypertrophy and subchondral cystic change. Mild degenerative change is also noted at the first carpal metacarpal joint. Soft tissue swelling is present at the third finger, greater distally. There is no subcutaneous air or radiopaque foreign bodies. XR/XR finger RT 3rd digit IMPRESSION: OSTEOPENIA AND DEGENERATIVE CHANGES. NO ACUTE BONY FINDINGS. SOFT TISSUE SWELLING AT THE THIRD FINGER. Impression dictated by: Princess Sanchez M.D.05/22/2024 12:50 PM Dictation Location: [place] [address] Transcribed By: NEWTON 05/22/24 1250 Dictated By: Princess Sanchez MD 05/22/24 1245 Signed By: 05/22/24 1250 Normal [facility] Basophils Auto (Bld) [#/Vol] on 05-08-2024 Basophils (Bld) [#/Vol] Automated basophil count <0.11 [facility] Basophils/100 WBC Auto (Bld) on 05-08-2024 Basophils/100 WBC (Bld) Automated basophil % [facility] Blood manual differential co mment interpretation narrativeon 05-08-2024 Manual differential comment Ankush (Bld) [Interp] Blood manual differential comment interpretation narrative [facility] CBC W Auto Differential pane l (Bld)on 05-08-2024 Basophils (Bld) [#/Vol] 0.06 10*3/uL Normal <0.11 [facility] Comment on above: Order Comment: Speci men Type: BLOOD SPECIMEN Ordering Facility: [facility] Address: [address] [place] [address] Performed By: #### 5 7021-8 #### [facility] CLIA [id number] [place] [address] [place] Basophils/100 WBC (Bld) 1.0 % Normal [facility] Comment on above: Order Comment: Speci men Type: BLOOD SPECIMEN Ordering Facility: [facility] Address: [address] [place] [address] Performed By: #### 5 7021-8 #### [facility] CLIA [id number] [address] [place] [address] [place] Differential cell count method Nom (Bld) Auto Normal [facility] Comment on above: Order Comment: Speci men Type: BLOOD SPECIMEN Ordering Facility: [facility] Address: [address] [place] [address] Performed By: #### 5 7021-8 #### [facility] CLIA [id number] [address] [place] [address] [place] Eosinophils (Bld) [#/Vol] 0.28 10*3/uL Normal <0.46 [facility] Comment on above: Order Comment: Speci men Type: BLOOD SPECIMEN Ordering Facility: [facility] Address: [address] [place] [address] Performed By: #### 5 7021-8 #### [facility] CLIA [id number] [address] [place] [address] [place] Eosinophils/100 WBC (Bld) 4.5 % Normal [facility] Comment on above: Order Comment: Speci men Type: BLOOD SPECIMEN Ordering Facility: [facility] Address: [address] [place] [address] Performed By: #### 5 7021-8 #### [facility] CLIA [id number] [address] [place], [place] [id number] [place] [address] [place] Erythrocyte distribution width (RBC) [Ratio] 14.1 % Normal 11.5-15.0 [facility] Comment on above: Order Comment: Speci men Type: BLOOD SPECIMEN Ordering Facility: [facility] Address: [address] [place] [address] Performed By: #### 5 7021-8 #### [facility] CLIA [id number] [address] [place] Hematocrit (Bld) [Volume fraction] 40.3 % Normal 36.0-46.0 [facility] Comment on above: Order Comment: Speci men Type: BLOOD SPECIMEN Ordering Facility: [facility] Address: [address] [place] [address] Performed By: #### 5 7021-8 #### [facility] CLIA [id number] [address] [place] [address] [place] Hemoglobin (Bld) [Mass/Vol] 12.5 g/dL Normal 11.5-15.5 [facility] Comment on above: Order Comment: Speci men Type: BLOOD SPECIMEN Ordering Facility: [facility] Address: [address] [place] [address] Performed By: #### 5 7021-8 #### [facility] CLIA [id number] [address] [place] [address] [place] Immature granulocytes (Bld) [#/Vol] 10*3/uL Normal <0.10 [facility] Comment on above: Order Comment: Speci men Type: BLOOD SPECIMEN Ordering Facility: [facility] Address: [address] [place] [address] Performed By: #### 5 7021-8 #### [facility] CLIA [id number] [address] [place] [address] [place] Immature granulocytes/100 WBC (Bld) 0.2 % Normal [facility] Comment on above: Order Comment: Speci men Type: BLOOD SPECIMEN Ordering Facility: [facility] Address: [address] [place] [address] Performed By: #### 5 7021-8 #### [facility] IA [id number] [address] [place] [address] [place] Lymphocytes (Bld) [#/Vol] 1.48 10*3/uL Normal 1.00-4.00 [facility] Comment on above: Order Comment: Speci men Type: BLOOD SPECIMEN Ordering Facility: [facility] Address: [address] [place] [address] Performed By: #### 5 7021-8 #### [facility] IA [id number] [address] [place] [address] [place] Lymphocytes/100 WBC (Bld) 23.9 % Normal [facility] Comment on above: Order Comment: Speci men Type: BLOOD SPECIMEN Ordering Facility: [facility] Address: [address] [place] [address] Performed By: #### 5 7021-8 #### [facility] [place] [id number] [address] [place] [id number] [place] MCH (RBC) [Entitic mass] 29.5 pg Normal 26.0-34.0 [facility] Comment on above: Order Comment: Speci men Type: BLOOD SPECIMEN Ordering Facility: [facility] Address: [address] [place] [address] Performed By: #### 5 7021-8 #### [facility] IA [id number] [address] [place] [address] [place] MCHC (RBC) [Mass/Vol] 31.0 g/dL Normal 30.5-36.0 [facility] Comment on above: Order Comment: Speci men Type: BLOOD SPECIMEN Ordering Facility: [facility] Address: [address] [place] [address] Performed By: #### 5 7021-8 #### [facility] IA [id number] [address] [place] [address] [place] MCV (RBC) [Entitic vol] 95.0 fL Normal 80.0-100.0 [facility] Comment on above: Order Comment: Speci men Type: BLOOD SPECIMEN Ordering Facility: [facility] Address: [address] [place] [address] Performed By: #### 5 7021-8 #### [facility] IA [id number] [address] [place] [address] [place] Monocytes (Bld) [#/Vol] 0.41 10*3/uL Normal <0.87 [facility] Comment on above: Order Comment: Speci men Type: BLOOD SPECIMEN Ordering Facility: [facility] Address: [address] [place] [address] Performed By: #### 5 7021-8 #### [facility] IA [id number] [place] Monocytes/100 WBC (Bld) 6.6 % Normal [facility] Comment on above: Order Comment: Speci men Type: BLOOD SPECIMEN Ordering Facility: [facility] Address: [address] [place] [address] Performed By: #### 5 7021-8 #### [facility] IA [id number] [address] [place] [address] [place] Neutrophils (Bld) [#/Vol] 3.94 10*3/uL Normal 1.45-7.50 [facility] Comment on above: Order Comment: Speci men Type: BLOOD SPECIMEN Ordering Facility: [facility] Address: [address] [place] [address] Performed By: #### 5 7021-8 #### [facility] CLIA [id number] [address] [place] [address] [place] Neutrophils/100 WBC (Bld) 63.8 % Normal [facility] Comment on above: Order Comment: Speci men Type: BLOOD SPECIMEN Ordering Facility: [facility] Address: [address] [place] [address] Performed By: #### 5 7021-8 #### [facility] CLIA [id number] [address] [place] [address] [place] Nucleated RBC (Bld) [#/Vol] 10*3/uL Normal <0.01 [facility] Comment on above: Order Comment: Speci men Type: BLOOD SPECIMEN Ordering Facility: [facility] Address: [address] [place] [address] Performed By: #### 5 7021-8 #### [facility] IA [id number] [address] [place] [address] [place] Nucleated RBC/100 WBC (Bld) [Ratio] 0.0 /100 WBC Normal [facility] Comment on above: Order Comment: Speci men Type: BLOOD SPECIMEN Ordering Facility: [facility] Address: [address] [place] [address] Performed By: #### 5 7021-8 #### [facility] IA [id number] [address] [place] [address] [place] Platelet mean volume (Bld) [Entitic vol] 8.8 fL Low 9.0-12.7 [facility] Comment on above: Order Comment: Speci men Type: BLOOD SPECIMEN Ordering Facility: [facility] Address: [address] [place] [address] Performed By: #### 5 7021-8 #### [facility] IA [id number] [address] [place] [address] [place] Platelets (Bld) [#/Vol] 268 10*3/uL Normal 150-400 [facility] Comment on above: Order Comment: Speci men Type: BLOOD SPECIMEN Ordering Facility: [facility] Address: [address] [place] [address] Performed By: #### 5 7021-8 #### [facility] CLIA [id number] [address] [place] [address] [place] RBC (Bld) [#/Vol] 4.24 10*6/uL Normal 3.90-5.20 [facility] Comment on above: Order Comment: Speci men Type: BLOOD SPECIMEN Ordering Facility: [facility] Address: [address] [place] [address] Performed By: #### 5 7021-8 #### [facility] CLIA [id number] [address] [place] [address] [place] WBC (Bld) [#/Vol] 6.18 10*3/uL Normal 3.70-11.00 [facility] Comment on above: Order Comment: Speci men Type: BLOOD SPECIMEN Ordering Facility: [facility] Address: [address] [place] [address] Performed By: #### 5 7021-8 #### [facility] CLIA [id number] [address] [place] [address] [place] CEA SerPl-ncon 05-08-2024 Carcinoembryonic Ag [Mass/Vol] 2.8 ng/mL Normal <=2.9 [facility] Comment on above: Order Comment: Speci men Type: BLOOD SPECIMENOrdering Facility: [facility] Address: [address] [place] [address] Result Comment: Carc inoembryonic antigen test is used as an aid in monitoring response to treatment or recurrence in patients with established colorectal, breast, lung, prostatic, pancreatic, and ovarian carcinomas. Clinical correlation is required. The Carcinoembryonic antigen test was performed using the [employer] Pracc[employer] Unicel DXI paramagnetic particle chemiluminescent immunoassay method. Results obtained with different assay methods or kits cannot be used interchangeably. Performed By: #### 2 039-6 ####[facility] [place] [id number] [facility] [id number] [address] [place] CNOVSPon 05-08-2024 CNOVSP Visit (SP) Office ([facility]) ----- EVAN GILL ([id number]) 1955 F Date Time Provider Department 05/08/24 1:45 PM TAPAN CORONA During your visit today, we recorded the following information about you: Temperature Pulse Respiration Blood pressure 99 degrees 70/minute 18/minute 132/71 Weight Height 69.4 kg 1.626 m Tapan Corona MD 05/08/2024 2:21 PM Signed PATIENT NAME: Evan Gill CLINIC NO.: [id number] ATTENDING PHYSICIAN: Tapan Corona MD DATE OF SERVICE: May 08, 2024 Some of the elements of this note have been copied from my previous progress note dated 02/06/2024. All the information has been reviewed carefully. Dear Dr. Bazzi here is an update on a follow up visit on female Evan Gill at the clinic May 08, 2024 Diagnosis: MRI staged T3c,N+M0- Adenocarcinoma of [...] Ileostomy closure and Flex sig 5. Signatera 10/2023, 01/2024- Negative. HPI: Evan Gill is a 68 year old year old female here for follow up. She is doing well overall and denies any fevers and or chills. PAST MEDICAL HISTORY Diagnosis Date Constipation Diverticulosis Malignant melanoma (HCC) Rectal cancer (HCC) Social History Tobacco Use Smoking status: Never Passive exposure: Past Smokeless tobacco: Never Vaping Use Vaping status: Never Used Substance Use Topics Alcohol use: Yes Comment: [...] tingling of hands/feet. No weakness. PHYSICAL EXAMINATION: There were no vitals taken for this visit. Wt 61.8 kg (136 lb 3.2 oz) [...] : Deferred LABS: Glucose (mg/dL) Date Value 02/06/2024 99 Potassium (mmol/L) Date Value 02/06/2024 4.5 Sodium (mmol/L) Date Value 02/06/2024 144 Chloride (mmol/L) Date Value 02/06/2024 106 CO2 (mmol/L) Date Value 02/06/2024 26 Creatinine (mg/dL) Date Value 02/06/2024 0.75 BUN (mg/dL) Date Value 02/06/2024 17 Anion Gap (mmol/L) Date Value 02/06/2024 12 Calcium, Total (mg/dL) Date Value 02/06/2024 9.5 Protein, Total (g/dL) Date Value 02/06/2024 6.5 Albumin (g/dL) Date Value 02/06/2024 4.1 Bilirubin, Total (mg/dL) Date Value 02/06/2024 0.3 Alkaline Phosphatase (U/L) Date Value 02/06/2024 94 AST (U/L) Date Value 02/06/2024 15 ALT (U/L) Date Value 02/06/2024 12 WBC Date Value Ref Range Status 02/06/2024 4.40 3.70 - 11.00 k/uL Final RBC Date Value Ref Range Status 02/06/2024 3 (more content not included)... Normal [facility] Comprehensive metabolic 2000 panelon 05-08-2024 Albumin [Mass/Vol] 4.4 g/dL Normal 3.9-4.9 [facility] Comment on above: Order Comment: Speci men Type: BLOOD SPECIMEN Ordering Facility: [facility] Address: [address] [place] [address] Performed By: #### 2 4323-8 #### [facility] CLIA [id number] [place] [address] [place] ALP [Catalytic activity/Vol] 65 U/L Normal 34-123 [facility] Comment on above: Order Comment: Speci men Type: BLOOD SPECIMEN Ordering Facility: [facility] Address: [address] [place] [address] Performed By: #### 2 4323-8 #### [facility] CLIA [id number] [address] [place] [address] [place] ALT [Catalytic activity/Vol] 21 U/L Normal 7-38 [facility] Comment on above: Order Comment: Speci men Type: BLOOD SPECIMEN Ordering Facility: [facility] Address: [address] [place] [address] Performed By: #### 2 4323-8 #### [facility] CLIA [id number] [address] [place] [address] [place] Anion gap [Moles/Vol] 9 mmol/L Normal 8-15 [facility] Comment on above: Order Comment: Speci men Type: BLOOD SPECIMEN Ordering Facility: [facility] Address: [address] [place] [address] Performed By: #### 2 4323-8 #### [facility] CLIA [id number] [address] [place] [address] [place] AST [Catalytic activity/Vol] 24 U/L Normal 13-35 [facility] Comment on above: Order Comment: Speci men Type: BLOOD SPECIMEN Ordering Facility: [facility] Address: [address] [place] [address] Performed By: #### 2 4323-8 #### [facility] CLIA [id number] [address] [place] [address] [place] Bilirubin [Mass/Vol] 0.3 mg/dL Normal 0.2-1.3 [facility] Comment on above: Order Comment: Speci men Type: BLOOD SPECIMEN Ordering Facility: [facility] Address: [address] [place] [address] Performed By: #### 2 4323-8 #### [facility] CLIA [id number] [address] [place] [address] [place] Calcium [Mass/Vol] 9.6 mg/dL Normal 8.5-10.2 [facility] Comment on above: Order Comment: Speci men Type: BLOOD SPECIMEN Ordering Facility: [facility] Address: [address] [place] [address] Performed By: #### 2 4323-8 #### [facility] CLIA [id number] [address] [place] [address] [place] Chloride [Moles/Vol] 106 mmol/L Normal 98-107 [facility] Comment on above: Order Comment: Speci men Type: BLOOD SPECIMEN Ordering Facility: [facility] Address: [address] [place] [address] Performed By: #### 2 4323-8 #### [facility] CLIA [id number] [address] [place] [address] [place] CO2 [Moles/Vol] 28 mmol/L Normal 22-30 [facility] Comment on above: Order Comment: Speci men Type: BLOOD SPECIMEN Ordering Facility: [facility] Address: [address] [place] [address] Performed By: #### 2 4323-8 #### [facility] CLIA [id number] [address] [place] [address] [place] Creatinine [Mass/Vol] 0.69 mg/dL Normal 0.58-0.96 [facility] Comment on above: Order Comment: Speci men Type: BLOOD SPECIMEN Ordering Facility: [facility] Address: [address] [place] [address] Performed By: #### 2 4323-8 #### [facility] CLIA [id number] [address] [place] [address] [place] Creatinine and Glomerular filtration rate.predicted panel (S/P/Bld) 93 mL/min/1.73m??? Normal >=60 [facility] Comment on above: Order Comment: Speci men Type: BLOOD SPECIMEN Ordering Facility: [facility] Address: [address] [place] [address] Result Comment: Farhana mated Glomerular Filtration Rate [...] actual GFR. Performed By: #### 2 4323-8 #### [facility] CLIA [id number] [address] [place] [address] [place] Glucose [Mass/Vol] 107 mg/dL High 74-99 [facility] Comment on above: Order Comment: Speci men Type: BLOOD SPECIMEN Ordering Facility: [facility] Address: [address] [id number] Result Comment: The [place] Diabetes Association (ADA) provides guidance for cutoff values for fasting glucose and random glucose. The ADA defines fasting as no caloric intake for at least 8 hours. Fasting plasma glucose results between 100 to 125 mg/dL indicate increased risk for diabetes (prediabetes). Fasting plasma glucose results greater than or equal to 126 mg/dL meet the criteria for diagnosis of diabetes. In the absence of unequivocal hyperglycemia, results should be confirmed by repeat testing. In a patient with classic symptoms of hyperglycemia or hyperglycemic crisis, random plasma glucose results greater than or equal to 200 mg/dL meet the criteria for diagnosis of diabetes. Reference: Standards of Medical Care in Diabetes 2016, [place] [employer] Association. Diabetes Care. 2016.39(Suppl 1). Performed By: #### 2 4323-8 #### [facility] CLIA [id number] [address] [place] [address] [place] Potassium [Moles/Vol] 4.8 mmol/L Normal 3.7-5.1 [facility] Comment on above: Order Comment: Speci men Type: BLOOD SPECIMEN Ordering Facility: [facility] Address: [address] [place] [address] Performed By: #### 2 4323-8 #### [facility] CLIA [id number] [address] [place] [address] [place] Protein [Mass/Vol] 6.8 g/dL Normal 6.3-8.0 [facility] Comment on above: Order Comment: Speci men Type: BLOOD SPECIMEN Ordering Facility: [facility] Address: [address] [place] [address] Performed By: #### 2 4323-8 #### [facility] CLIA [id number] [address] [place] [address] [place] Sodium [Moles/Vol] 143 mmol/L Normal 136-144 [facility] Comment on above: Order Comment: Speci men Type: BLOOD SPECIMEN Ordering Facility: [facility] Address: [address] [place], [place] [address] Performed By: #### 2 4323-8 #### [facility] CLIA [id number] [address] [place] [address] [place] Urea nitrogen [Mass/Vol] 17 mg/dL Normal 7-21 [facility] Comment on above: Order Comment: Speci men Type: BLOOD SPECIMEN Ordering Facility: [facility] Address: [address] [place], [place] [address] Performed By: #### 2 4323-8 #### [facility] CLIA [id number] [address] [place] [address] [place] Eosinophils/100 WBC Auto (Bl d)on 05-08-2024 Eosinophils/100 WBC (Bld) Automated eosinophil % [facility] Erythrocyte distribution wid th Auto (RBC) [Ratio]on 05-08-2024 Erythrocyte distribution width (RBC) [Ratio] Erythrocyte distribution width [Ratio] by Automated count 11.-15.0 [facility] Hematocrit Auto (Bld) [Volum e fraction]on 05-08-2024 Hematocrit (Bld) [Volume fraction] Hematocrit [Volume Fraction] of Blood by Automated count 36.0-46.0 [facility] Hemoglobin [Mass/volume] in Bloodon 05-08-2024 Hemoglobin (Bld) [Mass/Vol] Hemoglobin [Mass/volume] in Blood 11.5-15.5 [facility] Laboratory - Chemistry and C hemistry - challengeon 05-08-2024 Albumin [Mass/Vol] 4.4 g/dL 3.9-4.9 [facility] ALP [Catalytic activity/Vol] 65 U/L 34-123 [facility] ALT [Catalytic activity/Vol] 21 U/L 7-38 [facility] AST [Catalytic activity/Vol] 24 U/L 13-35 [facility] Bilirubin [Mass/Vol] 0.3 mg/dL 0.2-1.3 [facility] Calcium [Mass/Vol] 9.6 mg/dL 8.5-10.2 [facility] Chloride [Moles/Vol] 106 mmol/L 98-107 [facility] CO2 [Moles/Vol] 28 mmol/L 22-30 [facility] Creatinine [Mass/Vol] 0.69 mg/dL 0.58-0.96 [facility] Glucose [Mass/Vol] 107 mg/dL High 74-99 [facility] Comment on above: The [place] Diabete s Association (ADA) provides guidance for [...] Standards of Medical Care in Diabetes 2016, [place] Diabetes [employer]. Diabetes Care. 2016.39(Suppl 1). Potassium [Moles/Vol] 4.8 mmol/L 3.7-5.1 [facility] Sodium [Moles/Vol] 143 mmol/L 136-144 [facility] Urea nitrogen [Mass/Vol] 17 mg/dL 7-21 [facility] - Hematology and Cell countson 05-08-2024 Eosinophils (Bld) [#/Vol] 0.28 10*3/uL <0.46 [facility] Immature granulocytes/100 WBC (Bld) 0.2 % [facility] Leukocytes [#/volume] correc french for nucleated erythrocytes in Blood by Automated counon 05-08-2024 WBC corrected for nucl RBC Auto (Bld) [#/Vol] Leukocytes [#/volume] corrected for nucleated erythrocytes in Blood by Automated coun 3.70-11.00 [facility] Lymphocytes Auto (Bld) [#/Vo l]on 05-08-2024 Lymphocytes (Bld) [#/Vol] Lymphocytes [#/volume] in Blood by Automated count 1.00-4.00 [facility] Lymphocytes/100 WBC Auto (Bl d)on 05-08-2024 Lymphocytes/100 WBC (Bld) Lymphocytes/100 leukocytes in Blood by Automated count [facility] MCH Auto (RBC) [Entitic mass ]on 05-08-2024 MCH (RBC) [Entitic mass] MCH [Entitic mass] by Automated count 26.0-34.0 [facility] MCHC Auto (RBC) [Mass/Vol]on 05-08-2024 MCHC (RBC) [Mass/Vol] MCHC [Mass/volume] by Automated count 30.5-36.0 [facility] MCV Auto (RBC) [Entitic vol] on 05-08-2024 MCV (RBC) [Entitic vol] MCV [Entitic volume] by Automated count 80.0-100.0 [facility] Monocytes Auto (Bld) [#/Vol] on 05-08-2024 Monocytes (Bld) [#/Vol] Automated blood monocyte count <0.87 [facility] Monocytes/100 WBC Auto (Bld) on 05-08-2024 Monocytes/100 WBC (Bld) Automated monocyte % [facility] Neutrophils Auto (Bld) [#/Vo l]on 05-08-2024 Neutrophils (Bld) [#/Vol] Neutrophils [#/volume] in Blood by Automated count 1.45-7.50 [facility] Neutrophils/100 WBC Auto (Bl d)on 05-08-2024 Neutrophils/100 WBC (Bld) Automated neutrophil % [facility] No Panel Informationon 05-08 Estimated GFR (CKD-EPI) 93 mL/min/1.73m??? >=60 [facility] Comment on above: Estimated Glomerular Filtration Rate (eGFR) is calculated using the 2020 CKD-EPI creatinine equation. This equation utilizes serum creatinine, sex, and age as parameters. The creatinine assay has traceable calibration to isotope dilution-mass spectrometry. Refer to KDIGO guidelines for clinical interpretation. In patients with unstable renal function, e.g. those with acute kidney injury, the eGFR may not accurately reflect actual GFR. Immature Granulocyte # (Auto) <0.03 k/uL <0.10 [facility] Nucleated RBC Auto (Bld) [#/ Vol]on 05-08-2024 Nucleated RBC (Bld) [#/Vol] Nucleated erythrocytes [#/volume] in Blood by Automated count <0.01 [facility] Nucleated erythrocytes [Pres ence] in Blood by Automated counton 05-08-2024 Nucleated RBC Auto Ql (Bld) Nucleated erythrocytes [Presence] in Blood by Automated count [facility] Platelet mean volume Auto (B ld) [Entitic vol]on 05-08-2024 Platelet mean volume (Bld) [Entitic vol] Platelet mean volume [Entitic volume] in Blood by Automated count Low 9.0-12.7 [facility] Platelets Auto (Bld) [#/Vol] on 05-08-2024 Platelets (Bld) [#/Vol] Platelets [#/volume] in Blood by Automated count 150-400 [facility] Protein [Mass/volume] in Ser um or Plasmaon 05-08-2024 Protein [Mass/Vol] Protein [Mass/volume ] in Serum or Plasma 6.3-8.0 [facility] RBC Auto (Bld) [#/Vol]on RBC (Bld) [#/Vol] Erythrocytes [#/volu me] in Blood by Automated count 3.90-5.20 [facility] Serum or plasma anion gap de terminationon 05-08-2024 Anion gap [Moles/Vol] Serum or plasma an ion gap determination 8-15 [facility] CNOVon 04-10-2024 CNOV Office Visit (RADTSA ) ----- EVAN GILL ([id number]) 1955 F Date Time Provider Department 04/10/24 10:15 AM Del HUDSON During your visit today, we recorded the following information about you: Temperature Pulse Respiration Blood pressure 98 degrees 62/minute 16/minute 140/72 Weight 68.8 kg Del Hudson MD 04/18/2024 8:40 AM Signed Radiation Oncology - Follow Up Note PATIENT [...] fractions ELAPSED TIME: 42 days. INTERVAL HISTORY: Patient reports she has been doing well. Bowel function fairly good occasional constipation alternating with more frequent stools. No bleeding. No pain. No bladder related issues. 08/25/2023 robotic laparoscopic colectomy. Palpable finding mid rectum. No liver or peritoneal findings intraoperatively. Pathology demonstrating: AMENDED REPORT DETAIL [facility] Amended: 09/13/2023 3:21 PM This report is being amended to reflect a change in the Synoptic Report and Gross Description armijo. The changes are as follows: changed to tumor location in the Synoptic Report from Cannot be determined to Rectum / Entirely below anterior peritoneal reflection and added The ulcer is located entirely below the anterior peritoneal reflection to the Gross Description. Dr. Singer was notified of this change by e-mail on 09/13/2023. JEL 09/13/2023 Comment: Edited results: Previously reported on 08/31/2023 at 6:21 PM EST. FINAL DIAGNOSIS A. Sigmoid colon and rectum, resection: - No evidence of residual invasive adenocarcinoma (see synoptic report). - Fifteen lymph nodes, negative for malignancy (0/15). B. Additional distal margin, excision: - Segment of rectum with no diagnostic abnormality. JEL 08/30/2023 Amendment electronically signed by Oscar Marshall MD on 09/13/2023 at 3:24 PM Block for additional Biomarkers/Molecular studies LAB No evidence of residual invasive adenocarcinoma Synoptic Report COLON AND RECTUM: Resection, Including [...] 1, 8th Ed.) it is the managing physician?s responsibility to establish the final pathologic stage based upon all pertinent information, including but potentially not limited to this pathology report. TNM Descriptors y (post-treatment) pT Category pT0 pN Category pN0 . ALLERGIES No Known Allergies MEDICATIONS: ondansetron orally disintegrating (ZOFRAN ODT) 8 mg disintegrating tablet Take 1 tablet by mouth every 8 hours as needed for nausea/vomiting. omeprazole (PRILOSEC) 40 mg capsule Take 40 mg by mouth once daily. vortioxetine (TRINTELLIX) 10 mg tablet Take 10 mg by mouth once daily. oxybutynin ER (DITROPAN XL) 15 mg 24 hr Extended Rel Tab Take 15 mg by mouth. aspirin, enteric coated (ASPIRIN, ENTERIC COATED) 81 mg EC tablet Take 81 mg by mouth once daily. Amoxici (more content not included)... Normal [facility] IGP,APTIMA HPV,AGE GDLNon AGE GDLN ACOG TESTING Note . [facility] Comment on above: TESTS RESULT FLAG UN [facility] REF RANGE LAB Clinician Provided Cytology Information Source.............Cervix;Endocervix No. of containers..01 ThinPrep Vial Age Algo ACOG Katie... Note 01 <21 or >65 or no age provided FLAG LEGEND: L-Low Normal,H-High Normal,LL-Alert Low,HH-Alert High <-Panic Low,>-Panic High,A-Abnormal,AA-Critical Abnormal Performed at: 01 =G [facility] [address] Macey Newell MD, PAP IG (IMAGE GUIDED) Note . [facility] Comment on above: TESTS RESULT FLAG UN ITS REF RANGE LAB DIAGNOSIS: 02 NEGATIVE FOR INTRAEPITHELIAL LESION OR MALIGNANCY. CELLULAR CHANGES ASSOCIATED WITH INFLAMMATION ARE PRESENT. THIS SPECIMEN WAS RESCREENED PART OF OUR REPAIRER PROGRAM. Specimen adequacy: 02 Satisfactory for evaluation. Endocervical and/or squamous metaplastic cells (endocervical component) are present. Performed by: 03 Hailee Jeffery, Fitting Room Attendant ([facility]) QC reviewed by: 02 Kari French, Fitting Room Attendant . 02 Note: Note 02 The Pap smear is a screening test designed to aid in the detection of premalignant and malignant conditions of the uterine cervix. It is not a diagnostic procedure and should not be used as the sole means of detecting cervical cancer. Both false-positive and false-negative reports do occur. Test Methodology: Note 02 This liquid based ThinPrep(R) pap test was screened with the use of an image guided system. FLAG LEGEND: L-Low Normal,H-High Normal,LL-Alert Low,HH-Alert High <-Panic Low,>-Panic High,A-Abnormal,AA-Critical Abnormal Performed at: [address] [place] [address] Macey Newell MD, 03 [facility] [address] [address] Denisa Bowden PhD, Performed at: =G - [facility] [address] [id number] Lunchroom Monitor: Macey Newell MD, Phone: [phone] Performed at: - [facility] [id number] Lunchroom Monitor: Macey Newell MD, Phone: [phone] BRUSH-SPATULA CERVIX ENDOCERVIX [facility] 02-21-2024 [facility] Telephone ([place]) ----- EVAN GILL ([id number]) 1955 F Date Time Provider Department 02/21/24 KARI CARRILLO During your visit today, we recorded the following information about you: Kari Carrillo RN 02/21/2024 11:25 AM Signed Pt notified of negative signatera result and denies questions, needs or concerns at this time. Kari Carrillo RN Allergies As of Date: 02/21/2024 (No Known Allergies) Date Reviewed: 02/06/2024 Reviewed by: Naheed Elias PA-C - Fully Assessed Reason for Visit: Signatera results [Other] Prescriptions as of 02/21/2024 - ondansetron orally disintegrating (ZOFRAN ODT) 8 mg disintegrating tablet Take 1 tablet by mouth every 8 hours as needed for nausea/vomiting. - Amoxicillin 500 mg tablet FOR DENTAL WORK - omeprazole (PRILOSEC) 40 mg capsule Take 40 mg by mouth once daily. - vortioxetine (TRINTELLIX) 10 mg tablet Take 10 mg by mouth once daily. - oxybutynin ER (DITROPAN XL) 15 mg 24 hr Extended Rel Tab Take 15 mg by mouth. - aspirin, enteric coated (ASPIRIN, ENTERIC COATED) 81 mg EC tablet Take 81 mg by mouth once daily. Problem List As Of Date 02/21/2024 Noted Resolved OSTEOARTHROS NOS-ANKLE [M19.079] 12/20/2005 Personal History of Malignant Melanoma of Skin *04/28/2009 Rectal cancer (HCC) [C20] 06/14/2023 Iron deficiency anemia, unspecified [D50.9] 07/06/2023 Atrial fibrillation (HCC) [I48.91] 08/09/2023 Essential hypertension [I10] 04/25/2017 GERD (gastroesophageal reflux disease) [K21.9] 08/09/2023 Hemorrhoids [K64.9] 08/09/2023 Hyperlipidemia [E78.5] 08/09/2023 Mixed anxiety depressive disorder [F41.8] 08/09/2023 Rectal adenocarcinoma (HCC) [C20] 08/25/2023 Ileostomy present (HCC) [Z93.2] 08/26/2023 Encounter for ostomy care education [Z71.89] 08/26/2023 08/29/2023 Small bowel obstruction (HCC) [K56.609] 08/31/2023 09/04/2023 Ileostomy bag changed (HCC) [Z43.2] 08/31/2023 Partial small bowel obstruction (HCC) [K56.600] 11/06/2023 Encounter Status:Closed by KARI CARRILLO on 02/21/24 Normal [facility] CBC W Auto Differential pane l (Bld)on 02-06-2024 Basophils (Bld) [#/Vol] 0.04 10*3/uL Normal <0.11 [facility] Comment on above: Order Comment: Speci men Type: BLOOD SPECIMEN Ordering Facility: [facility] Address: [address] [place] [address] Performed By: #### 5 7021-8 #### [facility] CLIA [id number] [address] [place] [address] Basophils/100 WBC (Bld) 0.9 % Normal [facility] Comment on above: Order Comment: Speci men Type: BLOOD SPECIMEN Ordering Facility: [facility] Address: [address] [place] [address] Performed By: #### 5 7021-8 #### [facility] CLIA [id number] [address] [place] [address] Differential cell count method Nom (Bld) Auto Normal [facility] Comment on above: Order Comment: Speci men Type: BLOOD SPECIMEN Ordering Facility: [facility] Address: [address] [place] [address] Performed By: #### 5 7021-8 #### [facility] CLIA [id number] [address] [place] [address] Eosinophils (Bld) [#/Vol] 0.45 10*3/uL Normal <0.46 [facility] Comment on above: Order Comment: Speci men Type: BLOOD SPECIMEN Ordering Facility: [facility] Address: [address] [place] [address] Performed By: #### 5 7021-8 #### [facility] CLIA [id number] [address] [place] [address] Eosinophils/100 WBC (Bld) 10.2 % Normal [facility] Comment on above: Order Comment: Speci men Type: BLOOD SPECIMEN Ordering Facility: [facility] Address: [address] [place] [address] Performed By: #### 5 7021-8 #### [facility] CLIA [id number] [address] [place] [address] Erythrocyte distribution width (RBC) [Ratio] 14.1 % Normal 11.5-15.0 [facility] Comment on above: Order Comment: Speci men Type: BLOOD SPECIMEN Ordering Facility: [facility] Address: [address] [place] [address] Performed By: #### 5 7021-8 #### [facility] CLIA [id number] [address] [place] [address] Hematocrit (Bld) [Volume fraction] 36.0 % Normal 36.0-46.0 [facility] Comment on above: Order Comment: Speci men Type: BLOOD SPECIMEN Ordering Facility: [facility] Address: [address] [place] [address] Performed By: #### 5 7021-8 #### [facility] CLIA [id number] [address] [place] [address] Hemoglobin (Bld) [Mass/Vol] 11.4 g/dL Low 11.5-15.5 [facility] Comment on above: Order Comment: Speci men Type: BLOOD SPECIMEN Ordering Facility: [facility] Address: [address] [place] [address] Performed By: #### 5 7021-8 #### [facility] CLIA [id number] [address] [place] [address] Immature granulocytes (Bld) [#/Vol] 10*3/uL Normal <0.10 [facility] Comment on above: Order Comment: Speci men Type: BLOOD SPECIMEN Ordering Facility: [facility] Address: [address] [place] [address] Performed By: #### 5 7021-8 #### [facility] CLIA [id number] [address] [place] [address] Immature granulocytes/100 WBC (Bld) 0.2 % Normal [facility] Comment on above: Order Comment: Speci men Type: BLOOD SPECIMEN Ordering Facility: [facility] Address: [address] [place] [address] Performed By: #### 5 7021-8 #### [facility] CLIA [id number] [address] [place] [address] 13787 Lymphocytes (Bld) [#/Vol] 0.99 10*3/uL Low 1.00-4.00 [facility] Comment on above: Order Comment: Speci men Type: BLOOD SPECIMEN Ordering Facility: [facility] Address: [address] [place] [address] Performed By: #### 5 7021-8 #### [facility] CLIA [id number] [address] [place] [address] 48565 Lymphocytes/100 WBC (Bld) 22.5 % Normal [facility] Comment on above: Order Comment: Speci men Type: BLOOD SPECIMEN Ordering Facility: [facility] Address: [address] [place] [address] Performed By: #### 5 7021-8 #### [facility] CLIA [id number] [address] [place] [address] 23824 MCH (RBC) [Entitic mass] 28.9 pg Normal 26.0-34.0 [facility] Comment on above: Order Comment: Speci men Type: BLOOD SPECIMEN Ordering Facility: [facility] Address: [address] [place], [place] [address] Performed By: #### 5 7021-8 #### [facility] CLIA [id number] [address] [place] [address] 57269 MCHC (RBC) [Mass/Vol] 31.7 g/dL Normal 30.5-36.0 [facility] Comment on above: Order Comment: Speci men Type: BLOOD SPECIMEN Ordering Facility: [facility] Address: [address] [place] [address] Performed By: #### 5 7021-8 #### [facility] CLIA [id number] [address] [place] [address] 70229 MCV (RBC) [Entitic vol] 91.4 fL Normal 80.0-100.0 [facility] Comment on above: Order Comment: Speci men Type: BLOOD SPECIMEN Ordering Facility: [facility] Address: [address] [place] [address] Performed By: #### 5 7021-8 #### [facility] CLIA [id number] [address] [place] [address] 19909 Monocytes (Bld) [#/Vol] 0.29 10*3/uL Normal <0.87 [facility] Comment on above: Order Comment: Speci men Type: BLOOD SPECIMEN Ordering Facility: [facility] Address: [address] [place] [address] Performed By: #### 5 7021-8 #### [facility] CLIA [id number] [address] [place] [address] 98144 Monocytes/100 WBC (Bld) 6.6 % Normal [facility] Comment on above: Order Comment: Speci men Type: BLOOD SPECIMEN Ordering Facility: [facility] Address: [address] [place] [address] Performed By: #### 5 7021-8 #### [facility] CLIA [id number] [address] [place] [address] 64162 Neutrophils (Bld) [#/Vol] 2.62 10*3/uL Normal 1.45-7.50 [facility] Comment on above: Order Comment: Speci men Type: BLOOD SPECIMEN Ordering Facility: [facility] Address: [address] [place] [address] Performed By: #### 5 7021-8 #### [facility] CLIA [id number] [address] [place] [address] 38518 Neutrophils/100 WBC (Bld) 59.6 % Normal [facility] Comment on above: Order Comment: Speci men Type: BLOOD SPECIMEN Ordering Facility: [facility] Address: [address] [place] [address] Performed By: #### 5 7021-8 #### [facility] CLIA [id number] [address] [place] [address] 95061 Nucleated RBC (Bld) [#/Vol] 10*3/uL Normal <0.01 [facility] Comment on above: Order Comment: Speci men Type: BLOOD SPECIMEN Ordering Facility: [facility] Address: [address] [place] [address] Performed By: #### 5 7021-8 #### [facility] CLIA [id number] [address] [place] [address] 07360 Nucleated RBC/100 WBC (Bld) [Ratio] 0.0 /100 WBC Normal [facility] Comment on above: Order Comment: Speci men Type: BLOOD SPECIMEN Ordering Facility: [facility] Address: [address] [place] [address] Performed By: #### 5 7021-8 #### [facility] CLIA [id number] [address] [place] [address] 03473 Platelet mean volume (Bld) [Entitic vol] 8.3 fL Low 9.0-12.7 [facility] Comment on above: Order Comment: Speci men Type: BLOOD SPECIMEN Ordering Facility: [facility] Address: [address] [place] [address] Performed By: #### 5 7021-8 #### [facility] CLIA [id number] [address] [place] [address] Platelets (Bld) [#/Vol] 258 10*3/uL Normal 150-400 [facility] Comment on above: Order Comment: Speci men Type: BLOOD SPECIMEN Ordering Facility: [facility] Address: [address] [place] [address] Performed By: #### 5 7021-8 #### [facility] CLIA [id number] [address] [place] [address] 77022 RBC (Bld) [#/Vol] 3.94 10*6/uL Normal 3.90-5.20 [facility] Comment on above: Order Comment: Speci men Type: BLOOD SPECIMEN Ordering Facility: [facility] Address: [address] [place] [address] Performed By: #### 5 7021-8 #### [facility] CLIA [id number] [address] [place] [address] 77229 WBC (Bld) [#/Vol] 4.40 10*3/uL Normal 3.70-11.00 [facility] Comment on above: Order Comment: Speci men Type: BLOOD SPECIMEN Ordering Facility: [facility] Address: [address] [place] [address] Performed By: #### 5 7021-8 #### [facility] CLIA [id number] [address] [place] [address] 19744 [facility] Carcinoembryonic Ag [Mass/Vol] 2.9 ng/mL Normal <=2.9 [facility] Comment on above: Order Comment: Speci men Type: BLOOD SPECIMEN Ordering Facility: [facility] Address: [address] [place] [address] Result Comment: Carc inoembryonic antigen test is used as an aid in monitoring response to treatment or recurrence in patients with established colorectal, breast, lung, prostatic, pancreatic, and ovarian carcinomas. Clinical correlation is required. The Carcinoembryonic antigen test was performed using the Tony Praccel Unicel DXI paramagnetic particle chemiluminescent immunoassay method. Results obtained with different assay methods or kits cannot be used interchangeably. Performed By: #### 5 7021-8 #### [facility] CLIA [id number] [address] [place] [address] 02273 CNOVSPon 02-06-2024 CNOVSP Visit (SP) Office ([facility]) ----- EVAN GILL ([id number]) 1955 F Date Time Provider Department 02/06/24 11:15 AM TAPAN CORONA During your visit today, we recorded the following information about you: Temperature Pulse Respiration Blood pressure 97.7 degrees 76/minute 16/minute 150/87 Weight Height 67.7 kg 1.626 m Tapan Corona MD 02/06/2024 11:44 AM Signed PATIENT NAME: Evan Gill CLINIC NO.: [id number] ATTENDING PHYSICIAN: Tapan Corona MD DATE OF SERVICE: February 06, [...] 4 oz (67.7kg) SpO2 98% BMI 25.61 kg/(m2). Wt 61.8 kg (136 lb 3.2 oz) [...] 11/06/2023 39 ALT (U/L) Date Value 11/06/2023 (more content not included)... Normal [facility] Huang 02-06-2024 CNPN Telephone ([facility]) ----- EVAN GILL ([id number]) 1955 F Date Time Provider Department 02/06/24 T[facility]AN CORONA During your visit today, we recorded the following information about you: Adkins Fidencio Jessika Robert 02/06/2024 1:45 PM Signed Justin Martin 02/06/2024 2:18 PM Signed Called patient and scheduled labs, signatera and 3 month follow up in [place] with Mekhiyeniraymond for 05/08 Allergies As of Date: 02/06/2024 (No Known Allergies) Date Reviewed: 02/06/2024 Reviewed by: Naheed Elias, [place] - Fully Assessed Reason for Visit: Future Appointment [256] Prescriptions as of 02/06/2024 - ondansetron orally disintegrating (ZOFRAN ODT) 8 mg disintegrating tablet Take 1 tablet by mouth every 8 hours as needed for nausea/vomiting. - Amoxicillin 500 mg tablet FOR DENTAL WORK - omeprazole (PRILOSEC) 40 mg capsule Take 40 mg by mouth once daily. - vortioxetine (TRINTELLIX) 10 mg tablet Take 10 mg by mouth once daily. - oxybutynin ER (DITROPAN XL) 15 mg 24 hr Extended Rel Tab Take 15 mg by mouth. - aspirin, enteric coated (ASPIRIN, ENTERIC COATED) 81 mg EC tablet Take 81 mg by mouth once daily. Problem List As Of Date 02/06/2024 Noted Resolved OSTEOARTHROS NOS-ANKLE [M19.079] 12/20/2005 Personal History of Malignant Melanoma of Skin *04/28/2009 Rectal cancer (HCC) [C20] 06/14/2023 Iron deficiency anemia, unspecified [D50.9] 07/06/2023 Atrial fibrillation (HCC) [I48.91] 08/09/2023 Essential hypertension [I10] 04/25/2017 GERD (gastroesophageal reflux disease) [K21.9] 08/09/2023 Hemorrhoids [K64.9] 08/09/2023 Hyperlipidemia [E78.5] 08/09/2023 Mixed anxiety depressive disorder [F41.8] 08/09/2023 Rectal adenocarcinoma (HCC) [C20] 08/25/2023 Ileostomy present (HCC) [Z93.2] 08/26/2023 Encounter for ostomy care education [Z71.89] 08/26/2023 08/29/2023 Small bowel obstruction (HCC) [K56.609] 08/31/2023 09/04/2023 Ileostomy bag changed (HCC) [Z43.2] 08/31/2023 Partial small bowel obstruction (HCC) [K56.600] 11/06/2023 Encounter Status:Closed by JUSTIN MARTIN on 02/06/24 Normal [facility] Comprehensive metabolic 2000 panelon 02-06-2024 Albumin [Mass/Vol] 4.1 g/dL Normal 3.9-4.9 [facility] Comment on above: Order Comment: Speci men Type: BLOOD SPECIMEN Ordering Facility: [facility] Address: [address] [place] [address] Performed By: #### 2 4323-8 #### [facility] CLIA [id number] [address] [place] [address] ALP [Catalytic activity/Vol] 94 U/L Normal 34-123 [facility] Comment on above: Order Comment: Speci men Type: BLOOD SPECIMEN Ordering Facility: [facility] Address: [address] [place] [address] Performed By: #### 2 4323-8 #### [facility] CLIA [id number] [address] [place] [address] 74471 ALT [Catalytic activity/Vol] 12 U/L Normal 7-38 [facility] Comment on above: Order Comment: Speci men Type: BLOOD SPECIMEN Ordering Facility: [facility] Address: [address] [place] [address] Performed By: #### 2 4323-8 #### [facility] CLIA [id number] [address] [place] [address] Anion gap [Moles/Vol] 12 mmol/L Normal 8-15 [facility] Comment on above: Order Comment: Speci men Type: BLOOD SPECIMEN Ordering Facility: [facility] Address: [address] [place] [address] Performed By: #### 2 4323-8 #### [facility] CLIA [id number] [address] [place] [address] AST [Catalytic activity/Vol] 15 U/L Normal 13-35 [facility] Comment on above: Order Comment: Speci men Type: BLOOD SPECIMEN Ordering Facility: [facility] Address: [address] [place] [id number] Performed By: #### 2 4323-8 #### [facility] CLIA [id number] [address] [place] [address] 54648 Bilirubin [Mass/Vol] 0.3 mg/dL Normal 0.2-1.3 [facility] Comment on above: Order Comment: Speci men Type: BLOOD SPECIMEN Ordering Facility: [facility] Address: [address] [place] [address] Performed By: #### 2 4323-8 #### [facility] CLIA [id number] [address] [place] [address] 22343 Calcium [Mass/Vol] 9.5 mg/dL Normal 8.5-10.2 [facility] Comment on above: Order Comment: Speci men Type: BLOOD SPECIMEN Ordering Facility: [facility] Address: [address] [place] [address] Performed By: #### 2 4323-8 #### [facility] CLIA [id number] [address] [place] [address] 06418 Chloride [Moles/Vol] 106 mmol/L Normal 98-107 [facility] Comment on above: Order Comment: Speci men Type: BLOOD SPECIMEN Ordering Facility: [facility] Address: [address] [place], [place] [address] Performed By: #### 2 4323-8 #### [facility] CLIA [id number] [address] [place] [address] 97590 CO2 [Moles/Vol] 26 mmol/L Normal 22-30 [facility] Comment on above: Order Comment: Speci men Type: BLOOD SPECIMEN Ordering Facility: [facility] Address: [address] [place] [address] Performed By: #### 2 4323-8 #### [facility] CLIA [id number] [address] [place] [address] Creatinine [Mass/Vol] 0.75 mg/dL Normal 0.58-0.96 [facility] Comment on above: Order Comment: Mason simpson Type: BLOOD SPECIMEN Ordering Facility: [facility] Address: [address] [place], [place] [address] Performed By: #### 2 4323-8 #### [facility] CLIA [id number] [address] [place] [address] Creatinine and Glomerular filtration rate.predicted panel (S/P/Bld) 86 mL/min/1.73m??? Normal >=60 [facility] Comment on above: Order Comment: Mason simpson Type: BLOOD SPECIMEN Ordering Facility: [facility] Address: [address] [place] [address] Result Comment: Farhana mated Glomerular Filtration Rate [...] actual GFR. Performed By: #### 2 4323-8 #### [facility] CLIA [id number] [address] [place] [address] 26085 Glucose [Mass/Vol] 99 mg/dL Normal 74-99 [facility] Comment on above: Order Comment: Mason simpson Type: BLOOD SPECIMEN Ordering Facility: [facility] Address: [address] [id number] Result Comment: The [place] [employer] (ADA) provides guidance for cutoff values for fasting glucose and random glucose. The ADA defines fasting as no caloric intake for at least 8 hours. Fasting plasma glucose results between 100 to 125 mg/dL indicate increased risk for diabetes (prediabetes). Fasting plasma glucose results greater than or equal to 126 mg/dL meet the criteria for diagnosis of diabetes. In the absence of unequivocal hyperglycemia, results should be confirmed by repeat testing. In a patient with classic symptoms of hyperglycemia or hyperglycemic crisis, random plasma glucose results greater than or equal to 200 mg/dL meet the criteria for diagnosis of diabetes. Reference: Standards of Medical Care in Diabetes 2016, [place] [employer] Association. Diabetes Care. 2016.39(Suppl 1). Performed By: #### 2 4323-8 #### [facility] CLIA [id number] [address] [place] [address] 77591 Potassium [Moles/Vol] 4.5 mmol/L Normal 3.7-5.1 [facility] Comment on above: Order Comment: Speci men Type: BLOOD SPECIMEN Ordering Facility: [facility] Address: [address] [place] [address] Performed By: #### 2 432-8 #### [facility] CLIA [id number] [address] [place] [address] 35259 Protein [Mass/Vol] 6.5 g/dL Normal 6.3-8.0 [facility] Comment on above: Order Comment: Speci men Type: BLOOD SPECIMEN Ordering Facility: [facility] Address: [address] [address] Performed By: #### 2 432-8 #### [facility] CLIA [id number] [address] [place] [address] 01161 Sodium [Moles/Vol] 144 mmol/L Normal 136-144 [facility] Comment on above: Order Comment: Speci men Type: BLOOD SPECIMEN Ordering Facility: [facility] Address: [address] [id number] Performed By: #### 2 4323-8 #### [facility] CLIA [id number] [address] [place] [address] 31197 Urea nitrogen [Mass/Vol] 17 mg/dL Normal 7-21 [facility] Comment on above: Order Comment: Speci men Type: BLOOD SPECIMEN Ordering Facility: [facility] Address: [address] [place] [address] Performed By: #### 2 4323-8 #### [facility] CLIA [id number] [address] [place] [address] [facility] 2023 [facility] [place] SCAN TEST RESULTS 1 View results in Scanned Documents link when available Normal [facility] Comment on above: Order Comment: Speci men Type: BLOOD SPECIMEN Ordering Facility: [facility] Address: [address] [place] [address] Performed By: #### 5 7021-8 #### [facility] CLIA [id number] [address] [place] [address] REFERRAL LAB 1 (DROP-DOWN) Neel Normal [facility] Comment on above: Order Comment: Speci men Type: BLOOD SPECIMEN Ordering Facility: [facility] Address: [address] [place] [address] Performed By: #### 5 7021-8 #### [facility] CLIA [id number] [address] [place] [address]5924 TEST 1 Signatera Normal [facility] Comment on above: Order Comment: Speci men Type: BLOOD SPECIMEN Ordering Facility: [facility] Address: [address] [place] [address] Performed By: #### 5 7021-8 #### [facility] CLIA [id number] [address] [place] [address] 19782 Huang 01-16-2024 CNPN Telephone ([facility]) ----- EVAN GILL ([id number]) 1955 F Date Time Provider Department 01/16/24 LAISHA SINGER [facility] During your visit today, we recorded the following information about you: Amber Dhaliwal 01/16/2024 11:38 AM Signed Patient called in and has a small opening at her surgical site. Patient had a reversal with Dr. Singer on November 05. Contact# [phone] Cierra Lindquist RN 01/16/2024 1:28 PM Signed Returned call. She states that at her [...] office back with any questions or concerns. Allergies As of Date: 01/16/2024 (No Known Allergies) Date Reviewed: 01/09/2024 Reviewed by: Laisha Singer MD - Fully Assessed Reason for Visit: Patient Question [8837] Prescriptions as of 01/16/2024 - gabapentin (NEURONTIN) 100 mg capsule Take 1 capsule by mouth three times a day for 30 days. - ibuprofen (MOTRIN) 400 mg tablet Take 1 tablet by mouth every 8 hours. - acetaminophen (TYLENOL) 500 mg tablet Take 2 tablets by mouth every 8 hours. - nitroglycerin sublingual (NITROQUICK) 0.4 mg SL tablet Dissolve 1 tablet under the tongue as needed for chest pain, may repeat every 5 minutes if no relief up to 3 times. - Amoxicillin 500 mg tablet FOR DENTAL WORK - omeprazole (PRILOSEC) 40 mg capsule Take 40 mg by mouth once daily. - vitamin D3/vitamin K2, MK4, (K2 PLUS D3 ORAL) Take 1 Dose by mouth once daily. - compounded progesterone 50 mg capsule Take 150 mg by mouth daily at bedtime. - Testosterone 12.5 mg/ 1.25 gram (1 %) glpm Apply 2 Pump as directed once daily. 0.5 MIL - ondansetron orally disintegrating (ZOFRAN ODT) 8 mg disintegrating tablet Take 1 tablet by mouth every 8 hours as needed for nausea/vomiting. - prochlorperazine (COMPAZINE) 10 mg tablet Take 1 tablet by mouth every 6 hours as needed. - ondansetron (ZOFRAN) 8 mg tablet Take 1 tablet by mouth every 8 hours as needed for nausea/vomiting. - vortioxetine (TRINTELLIX) 10 mg tablet Take 10 mg by mouth once daily. - oxybutynin ER (DITROPAN XL) 15 mg 24 hr Extended Rel Tab Take 15 mg by mouth. - aspirin, enteric coated (ASPIRIN, ENTERIC COATED) 81 mg EC tablet Take 81 mg by mouth once daily. - docosahexaenoic acid/epa (FISH OIL ORAL) Take 2,000 mg by mouth two times a day. - calcium carbonate/vitamin d3(CALCIUM 600 WITH VITAMIN D3 600 MG (1,500 MG)-400 UNIT CAP) Take 1 tablet by mouth once daily. Problem List As Of Date 01/16/2024 Noted Resolved OSTEOARTHROS NOS-ANKLE [M19.079] 12/20/2005 Personal History of Malignant Melanoma of Skin *04/28/2009 Rectal cancer (HCC) [C20] 06/14/2023 Iron deficiency anemia, unspecified [D50.9] 07/06/2023 Atrial fibrillation (HCC) [I48.91] 08/09/2023 Essential hypertension [I10] 04/25/2017 GERD (gastroesophageal reflux disease) [K21.9] 08/09/2023 Hemorrhoids [K64.9] 08/09/2023 Hyperlipidemia [E78.5] 08/09/2023 Mixed anxiety depressive disorder [F41.8] 08/09/2023 Rectal adenocarcinoma (HCC) [C20] 08/25/2023 Ileostomy present (HCC) [Z93.2] 08/26/2023 Encounter for ostomy care education [Z71.89] 08/26/2023 08/29/2023 Small bowel obstruction (HCC) [K56.609] 08/31/2023 09/04/2023 Ileostomy bag changed (HCC) [Z43.2] 08/31/2023 Partial small bowel obstruction (HCC) [K56.600] 11/06/2023 Encounter Status:Closed by CIERRA LINDQUIST on 01/16/24 [facility] CNOVon 01-09-2024 CNOV Office Visit ([facility] ) ----- EVAN GILL ([id number]) 1955 F Date Time Provider Department 01/09/24 2:20 PM LAISHA SINGER [facility] During your visit today, we recorded the following information about you: Temperature Pulse Blood pressure Weight 97.8 degrees 64/minute 131/79 64 kg Laisha Singer MD 01/09/2024 3:09 PM Signed [facility] January 09, 2024 Evan Gill [...] BP Position: Sitting) Pulse 64 Temp 36.6 ?C (97.8 ?F) Wt 64 kg (141 lb) SpO2 99% BMI 24.20 kg/m? General Appearance: Well appearing, alert, in no [...] cm from the anal verge with mild stenos (more content not included)... Normal [facility] CNPNon 01-08-2024 CNPN Telephone ([facility]) ----- EVAN GILL ([id number]) 1955 F Date Time Provider Department 01/08/24 COLLEEN SOLORIO During your visit today, we recorded the following information about you: Colleen Solorio RN 01/08/2024 10:38 AM Signed Pt calls stating she received a call from [facility] to schedule a date to come out [...] other labs that day. Colleen Solorio RN Allergies As of Date: 01/08/2024 (No Known Allergies) Date Reviewed: 12/14/2023 Reviewed by: Naheed Elias PA-C - Fully Assessed Reason for Visit: Care Coordination [0191] Cmt: Lab question Prescriptions as of 01/08/2024 - gabapentin (NEURONTIN) 100 mg capsule Take 1 capsule by mouth three times a day for 30 days. - ibuprofen (MOTRIN) 400 mg tablet Take 1 tablet by mouth every 8 hours. - acetaminophen (TYLENOL) 500 mg tablet Take 2 tablets by mouth every 8 hours. - nitroglycerin sublingual (NITROQUICK) 0.4 mg SL tablet Dissolve 1 tablet under the tongue as needed for chest pain, may repeat every 5 minutes if no relief up to 3 times. - Amoxicillin 500 mg tablet FOR DENTAL WORK - omeprazole (PRILOSEC) 40 mg capsule Take 40 mg by mouth once daily. - vitamin D3/vitamin K2, MK4, (K2 PLUS D3 ORAL) Take 1 Dose by mouth once daily. - compounded progesterone 50 mg capsule Take 150 mg by mouth daily at bedtime. - Testosterone 12.5 mg/ 1.25 gram (1 %) glpm Apply 2 Pump as directed once daily. 0.5 MIL - ondansetron orally disintegrating (ZOFRAN ODT) 8 mg disintegrating tablet Take 1 tablet by mouth every 8 hours as needed for nausea/vomiting. - prochlorperazine (COMPAZINE) 10 mg tablet Take 1 tablet by mouth every 6 hours as needed. - ondansetron (ZOFRAN) 8 mg tablet Take 1 tablet by mouth every 8 hours as needed for nausea/vomiting. - vortioxetine (TRINTELLIX) 10 mg tablet Take 10 mg by mouth once daily. - oxybutynin ER (DITROPAN XL) 15 mg 24 hr Extended Rel Tab Take 15 mg by mouth. - aspirin, enteric coated (ASPIRIN, ENTERIC COATED) 81 mg EC tablet Take 81 mg by mouth once daily. - docosahexaenoic acid/epa (FISH OIL ORAL) Take 2,000 mg by mouth two times a day. - calcium carbonate/vitamin d3(CALCIUM 600 WITH VITAMIN D3 600 MG (1,500 MG)-400 UNIT CAP) Take 1 tablet by mouth once daily. Problem List As Of Date 01/08/2024 Noted Resolved OSTEOARTHROS NOS-ANKLE [M19.079] 12/20/2005 Personal History of Malignant Melanoma of Skin *04/28/2009 Rectal cancer (HCC) [C20] 06/14/2023 Iron deficiency anemia, unspecified [D50.9] 07/06/2023 Atrial fibrillation (HCC) [I48.91] 08/09/2023 Essential hypertension [I10] 04/25/2017 GERD (gastroesophageal reflux disease) [K21.9] 08/09/2023 Hemorrhoids [K64.9] 08/09/2023 Hyperlipidemia [E78.5] 08/09/2023 Mixed anxiety depressive disorder [F41.8] 08/09/2023 Rectal adenocarcinoma (HCC) [C20] 08/25/2023 Ileostomy present (HCC) [Z93.2] 08/26/2023 Encounter for ostomy care education [Z71.89] 08/26/2023 08/29/2023 Small bowel obstruction (HCC) [K56.609] 08/31/2023 09/04/2023 Ileostomy bag changed (HCC) [Z43.2] 08/31/2023 Partial small bowel obstruction (HCC) [K56.600] 11/06/2023 Encounter Status:Closed by COLLEEN SOLORIO on 01/08/24 [facility] 12-12-2023 CNPN Telephone (RADTSA) ----- EVAN GILL ([id number]) 1955 F Date Time Provider Department 12/12/23 TAPAN CORONA During your visit today, we recorded the following information about you: Prachi Gill RN 12/12/2023 8:27 AM Signed Pt is wondering when she can get her port removed? She had it placed for 5FU which she was unable to tolerate. Is it ok to have this removed at this point? Even at her inpatient admissions/surgeries, they have not used her port. Please advise. Thank you KAYA Drake Kasra, MD 12/12/2023 5:58 PM Signed Yes. Please remove Prachi Gill RN 12/13/2023 8:27 AM Signed Please arrange for port removal. KAYA Drake Jodi 12/13/2023 8:52 AM Signed Hi there, I would be happy to get this removal started, could you please enter an order for me? Thank you Prachi Cerda RN 12/13/2023 9:31 AM Signed Please sign order. Thanks!! KAYA Drake Jodi 12/14/2023 9:14 AM Signed Faxed order to , will call office to make sure they got it and scheduling information. Kristin Martinez 12/18/2023 9:50 AM Signed Refaxed order 12/18/2023 at 9:50 am. I was told as soon as they get the order they will call the patient. Kristin Martinez 12/19/2023 9:15 AM Signed Order was received and they did call patient. Waiting on [facility] response to get scheduled. Kristin Martinez 12/20/2023 10:36 AM Signed Called Evan to see if she had gotten their message to call to schedule. She did not so I gave her their phone number to call and get that scheduled. Colleen Solorio RN 12/20/2023 11:30 AM Signed Pt calls stating she's scheduled to have a consult with on 01/16 to have port removed. Colleen Solorio RN Allergies As of Date: 12/12/2023 (No Known Allergies) Date Reviewed: 11/24/2023 Reviewed by: Mony Sandoval OCCA - Fully Assessed Reason for Visit: Port Removal [1333] Primary Visit Diagnosis:Rectal adenocarcinoma (HCC) [C20] Order(s):IR PORTOCATH REMOVAL [2935410] Order #: [id number] Prescriptions as of 12/25/2023 - gabapentin (NEURONTIN) 100 mg capsule Take 1 capsule by mouth three times a day for 30 days. - ibuprofen (MOTRIN) 400 mg tablet Take 1 tablet by mouth every 8 hours. - acetaminophen (TYLENOL) 500 mg tablet Take 2 tablets by mouth every 8 hours. - nitroglycerin sublingual (NITROQUICK) 0.4 mg SL tablet Dissolve 1 tablet under the tongue as needed for chest pain, may repeat every 5 minutes if no relief up to 3 times. - Amoxicillin 500 mg tablet FOR DENTAL WORK - omeprazole (PRILOSEC) 40 mg capsule Take 40 mg by mouth once daily. - vitamin D3/vitamin K2, MK4, (K2 PLUS D3 ORAL) Take 1 Dose by mouth once daily. - compounded progesterone 50 mg capsule Take 150 mg by mouth daily at bedtime. - Testosterone 12.5 mg/ 1.25 gram (1 %) glpm Apply 2 Pump as directed once daily. 0.5 MIL - ondansetron orally disintegrating (ZOFRAN ODT) 8 mg disintegrating tablet Take 1 tablet by mouth every 8 hours as needed for nausea/vomiting. - prochlorperazine (COMPAZINE) 10 mg tablet Take 1 tablet by mouth every 6 hours as needed. - ondansetron (ZOFRAN) 8 mg tablet Take 1 tablet by mouth every 8 hours as needed for nausea/vomiting. - vortioxetine (TRINTELLIX) 10 mg tablet Take 10 mg by mouth once daily. - oxybutynin ER (DITROPAN XL) 15 mg 24 hr Extended Rel Tab Take 15 mg by mouth. - aspirin, enteric coated (ASPIRIN, ENTERIC COATED) 81 mg EC tablet Take 81 mg by mouth once daily. - docosahexaenoic acid/epa (FISH OIL ORAL) Take 2,000 mg by mouth two times a day. - calcium carbonate/vitamin d3(CALCIUM 600 WITH VITAMIN D3 600 MG (1,500 MG)-400 UNIT CAP) Take 1 tablet by mouth once daily. Problem List As Of Date 12/12/2023 Noted Resolved OSTEOARTHROS NOS-ANKLE [M19.079] 12/20/2005 Personal History of Malignant Melanoma of Skin *04/28/2009 Rectal cancer (HCC) [C20] 06/14/2023 Iron deficiency anemia, unspecified [D50.9] 07/06/2023 Atrial fibrillation (HCC) [I48.91] 08/09/2023 Essential hypertension [I10] 04/25/2017 GERD (gastroesophageal reflux disease) [K21.9] 08/09/2023 Hemorrhoids [K64.9] 08/09/2023 Hyperlipidemia [E78.5] 08/09/2023 Mixed anxiety depressive disorder [F41.8] 08/09/2023 Rectal adenocarcinoma (HCC) [C20] 08/25/2023 Ileostomy present (HCC) [Z93.2] 08/26/2023 Encounter for ostomy care education [Z71.89] 08/26/2023 08/29/2023 Small bowel obstruction (HCC) [K56.609] 08/31/2023 09/04/2023 Ileostomy bag changed (HCC) [Z43.2] 08/31/2023 Partial small bowel obstruction (HCC) [K56.600] 11/06/2023 Encounter Status:Closed by PRACHI GILL on 12/25/23 [facility] CNOVon 11-24-2023 CNOV Office Visit ([facility] ) ----- EVAN GILL ([id number]) 1955 F Date Time Provider Department 11/24/23 3:40 PM BRANDIE SALMERON [facility] During your visit today, we recorded the following information about you: Temperature Pulse Blood pressure Weight 97.3 degrees 57/minute 122/56 64 kg Height 1.626 m Brandie Salmeron APRN.[facility] 11/27/2023 2:39 PM Signed COLORECTAL SURGERY November 24, 2023 Evan Gill 68 year old This consult was requested by Dr. Singer and my final recommendations will be communicated to the requesting health care provider by way of the shared medical record for internal providers or letter via the [place] Postal Service for external providers. Chief Complaint: [...] Never used Substance Use Topics Alcohol use: No (more content not included)... Normal [facility] 11-13-2023 [place] Telephone (EVELIA) ----- EVAN GILL ([id number]) 1955 F Date Time Provider Department 11/13/23 COLLEEN SOLORIO During your visit today, we recorded the following information about you: Colleen Solorio, RN 11/13/2023 3:56 PM Signed DISCHARGE CALL BACK Today's date: November 13, 2023 Notified of Pt discharge by: hosp ADT folder Patient discharged on 11/10/23 from [place] to Home Primary Cancer Diagnosis: rectal cancer Admitting Diagnosis: small bowel obstruction Discharge Summary/SBAR reviewed: Yes Handoff Discussed with Transitional User Experience Designer: No, unavailable Psychosocial Risk Factors: None If [...] discharge Patient reminded of follow-up appointment with [facility] provider, Dr Corona on 01/16/24: [...] weekend phone number? YES Colleen Solorio RN Allergies As of Date: 11/13/2023 (No Known Allergies) Date Reviewed: 11/08/2023 Reviewed by: Elizabeth Ohara RN - Fully Assessed Reason for Visit: Care Coordination [0412] Cmt: [facility] d/c follow up call Prescriptions as of 11/13/2023 - ibuprofen (MOTRIN) 400 mg tablet Take 1 tablet by mouth every 8 hours. - Bacillus coagulan-calcium carb (DIGESTIVE ADVANTAGE PROBIOTIC) 2 billion cell- 140 mg cap Take 1 capsule by mouth once daily. Patient should start on November 10, 2023. - oxyCODONE IR (ROXICODONE) 5 mg immediate release tablet Take 1 tablet by mouth every 6 hours as needed for up to 7 days. - acetaminophen (TYLENOL) 500 mg tablet Take 2 tablets by mouth every 8 hours. - nitroglycerin sublingual (NITROQUICK) 0.4 mg SL tablet Dissolve 1 tablet under the tongue as needed for chest pain, may repeat every 5 minutes if no relief up to 3 times. - Amoxicillin 500 mg tablet FOR DENTAL WORK - omeprazole (PRILOSEC) 40 mg capsule Take 40 mg by mouth once daily. - vitamin D3/vitamin K2, MK4, (K2 PLUS D3 ORAL) Take 1 Dose by mouth once daily. - compounded progesterone 50 mg capsule Take 150 mg by mouth daily at bedtime. - Testosterone 12.5 mg/ 1.25 gram (1 %) glpm Apply 2 Pump as directed once daily. 0.5 MIL - ondansetron orally disintegrating (ZOFRAN ODT) 8 mg disintegrating tablet Take 1 tablet by mouth every 8 hours as needed for nausea/vomiting. - prochlorperazine (COMPAZINE) 10 mg tablet Take 1 tablet by mouth every 6 hours as needed. - ondansetron (ZOFRAN) 8 mg tablet Take 1 tablet by mouth every 8 hours as needed for nausea/vomiting. - vortioxetine (TRINTELLIX) 10 mg tablet Take 10 mg by mouth once daily. - oxybutynin ER (DITROPAN XL) 15 mg 24 hr Extended Rel Tab Take 15 mg by mouth. - aspirin, enteric coated (ASPIRIN, ENTERIC COATED) 81 mg EC tablet Take 81 mg by mouth once daily. - docosahexaenoic acid/epa (FISH OIL ORAL) Take 2,000 mg by mouth two times a day. - calcium carbonate/vitamin d3(CALCIUM 600 WITH VITAMIN D3 600 MG (1,500 MG)-400 UNIT CAP) Take 1 tablet by mouth once daily. Problem List As Of Date 11/13/2023 Noted Resolved OSTEOARTHROS NOS-ANKLE [M19.079] 12/20/2005 Personal History of Malignant Melanoma of Skin *04/28/2009 Rectal cancer (HCC) [C20] 06/14/2023 Iron deficiency anemia, unspecified [D50.9] 07/06/2023 Atrial fibrillation (HCC) [I48.91] 08/09/2023 Essential hypertension [I10] 04/25/2017 GERD (gastroesophageal reflux disease) [K21.9] 08/09/2023 Hemorrhoids [K64.9] 08/09/2023 Hyperlipidemia [E78.5] 08/09/2023 Mixed anxiety depressive disorder [F41.8] 08/09/2023 Rectal adenocarcinoma (HCC) [C20] 08/25/2023 Ileostomy present (HCC) [Z93.2] 08/26/2023 Encounter for ostomy ca (more content not included)... Normal [facility] Basic metabolic 2000 panelon 11-10-2023 Anion gap [Moles/Vol] 11 mmol/L Normal 9-18 [facility] Comment on above: Order Comment: Speci men Type: BLOOD SPECIMENOrdering Facility: [facility] Address: [address] [place] [address] Performed By: #### 2 4321-2, 2776-07, ####PORTER LABORATORYCLIA [id number] [place] [address] [place] Calcium [Mass/Vol] 9.0 mg/dL Normal 8.5-10.2 [facility] Comment on above: Order Comment: Speci men Type: BLOOD SPECIMENOrdering Facility: [facility] Address: [address] [place] [address] Performed By: #### 2 4321-2, 2776-07, ####PORTER LABORATORYCLIA [id number] [place] [id number] [place] Chloride [Moles/Vol] 102 mmol/L Normal 97-105 [facility] Comment on above: Order Comment: Speci men Type: BLOOD SPECIMENOrdering Facility: [facility] Address: [address] [place] [address] Performed By: #### 2 4321-2, 2776-07, ####PORTER LABORATORYCLIA [id number] [place] [id number] [place] CO2 [Moles/Vol] 28 mmol/L Normal 22-30 [facility] Comment on above: Order Comment: Speci men Type: BLOOD SPECIMENOrdering Facility: [facility] Address: [address] [place] [address] Performed By: #### 2 4321-2, 27701-07, ####[facility] LABORATORYCLIA [id number] [place] [address] [place] Creatinine [Mass/Vol] 0.60 mg/dL Normal 0.58-0.96 [facility] Comment on above: Order Comment: Speci men Type: BLOOD SPECIMENOrdering Facility: [facility] Address: [address] [place] [address] Performed By: #### 2 4321-2, 27701-07, ####[facility] LABORATORYCLIA [id number] [place] [id number] [place] Creatinine and Glomerular filtration rate.predicted panel (S/P/Bld) 97 mL/min/1.73m??? Normal >=60 [facility] Comment on above: Order Comment: [facility]du[facility] Type: BLOOD SPECIMENOrdering Facility: [facility] Address: [address] [place] [address] Result Comment: Farhana mated Glomerular Filtration Rate [...] GFR. Performed By: #### 2 4321-2, 2777-, ####[facility] LABORATORYCLIA [id number] [place] [id number] [place] Glucose [Mass/Vol] 101 mg/dL High 74-99 [facility] Comment on above: Order Comment: Specduarte simpson Type: BLOOD SPECIMENOrdering Facility: [facility] Address: [address] [place] [address] Result Comment: The [place] Diabetes Association (ADA) provides guidance for cutoff [...] Standards of Medical Care in Diabetes 2016, [place] [employer]. Diabetes Care. 2016.39(Suppl 1). Performed By: #### 2 4321-2, 2776-07, ####PORTER LABORATORYCLIA [id number] [place] [id number] [place] Potassium [Moles/Vol] 3.5 mmol/L Low 3.7-5.1 [facility] Comment on above: Order Comment: Mason simpson Type: BLOOD SPECIMENOrdering Facility: [facility] Address: [address] [place] [address] Performed By: #### 2 4321-2, 2776-07, ####PORTER LABORATORYCLIA [id number] [place] [id number] [place] Sodium [Moles/Vol] 141 mmol/L Normal 136-144 [facility] Comment on above: Order Comment: Mason simpson Type: BLOOD SPECIMENOrdering Facility: [facility] Address: [address] [place] [address] Performed By: #### 2 4321-2, 2776-07, ####PORTER LABORATORYCLIA [id number] [place] [id number] [place] Urea nitrogen [Mass/Vol] 8 mg/dL Normal 7-21 [facility] Comment on above: Order Comment: Mason simpson Type: BLOOD SPECIMENOrdering Facility: [facility] Address: [address] [place] [address] Performed By: #### 2 4321-2, 2776-07, ####PORTER LABORATORYCLIA [id number] [address] CBC panel Auto (Bld)on 11-09 Erythrocyte distribution width (RBC) [Ratio] 13.8 % Normal 11.5-15.0 [facility] Comment on above: Order Comment: Speci men Type: BLOOD SPECIMENOrdering Facility: [facility] Address: [address] [place] [address] Performed By: #### 5 8410-2 ####[facility] LABORATORYCLIA [id number] [address] Hematocrit (Bld) [Volume fraction] 32.4 % Low 36.0-46.0 [facility] Comment on above: Order Comment: Speci men Type: BLOOD SPECIMENOrdering Facility: [facility] Address: [address] [place] [address] Performed By: #### 5 8410-2 ####[facility] LABORATORYCLIA [id number] [address] Hemoglobin (Bld) [Mass/Vol] 10.7 g/dL Low 11.5-15.5 [facility] Comment on above: Order Comment: Speci men Type: BLOOD SPECIMENOrdering Facility: [facility] Address: [address] [place] [address] Performed By: #### 5 8410-2 ####[facility] LABORATORYCLIA [id number] [address] MCH (RBC) [Entitic mass] 29.6 pg Normal 26.0-34.0 [facility] Comment on above: Order Comment: Speci men Type: BLOOD SPECIMENOrdering Facility: [facility] Address: [address] [place] [address] Performed By: #### 5 8410-2 ####PORTER LABORATORYCLIA [id number] [address] STATES [facility] MCHC (RBC) [Mass/Vol] 33.0 g/dL Normal 30.5-36.0 [facility] Comment on above: Order Comment: Speci men Type: BLOOD SPECIMENOrdering Facility: [facility] Address: [address] [place] [address] Performed By: #### 5 8410-2 ####PORTER LABORATORYCLIA [id number] [place] [id number] [facility] [place] MCV (RBC) [Entitic vol] 89.5 fL Normal 80.0-100.0 [facility] Comment on above: Order Comment: Speci men Type: BLOOD SPECIMENOrdering Facility: [facility] Address: [address] [place] [address] Performed By: #### 5 8410-2 ####PORTER LABORATORYCLIA [id number] [place] [address] [place] Nucleated RBC (Bld) [#/Vol] 10*3/uL Normal <0.01 [facility] Comment on above: Order Comment: Speci men Type: BLOOD SPECIMENOrdering Facility: [facility] Address: [address] [place] [address] Performed By: #### 5 8410-2 ####PORTER LABORATORYCLIA [id number] [place] [address] [place] Platelet mean volume (Bld) [Entitic vol] 8.8 fL Low 9.0-12.7 [facility] Comment on above: Order Comment: Speci men Type: BLOOD SPECIMENOrdering Facility: [facility] Address: [address] [place] [address] Performed By: #### 5 8410-2 ####PORTER LABORATORYCLIA [id number] [place] [id number] [place] Platelets (Bld) [#/Vol] 285 10*3/uL Normal 150-400 [facility] Comment on above: Order Comment: Speci men Type: BLOOD SPECIMENOrdering Facility: [facility] Address: [address] [place] [address] Performed By: #### 5 8410-2 ####PORTER LABORATORYCLIA [id number] [place] [id number] [place] RBC (Bld) [#/Vol] 3.62 10*6/uL Low 3.90-5.20 [facility] Comment on above: Order Comment: Speci men Type: BLOOD SPECIMENOrdering Facility: [facility] Address: [address] [place] [address] Performed By: #### 5 8410-2 ####[facility] LABORATORYCLIA [id number] [place] [id number] [place] WBC (Bld) [#/Vol] 7.91 10*3/uL Normal 3.70-11.00 [facility] Comment on above: Order Comment: Speci men Type: BLOOD SPECIMENOrdering Facility: [facility] Address: [address] [place] [address] Performed By: #### 5 8410-2 ####CORNEL[facility] LABORATORYCLIA [id number] [place] [id number] [place] Magnesium SerPl-mCncon 11-09 Magnesium [Mass/Vol] 1.9 mg/dL Normal 1.7-2.3 [facility] Comment on above: Order Comment: Speci men Type: BLOOD SPECIMENOrdering Facility: [facility] Address: [address] [place] [address] Performed By: #### 2 4321-2, 2777-1, ####CORNELIUS LABORATORYCLIA [id number] [place] [id number] [place] Phosphate SerPl-mCncon 11-09 Phosphate [Mass/Vol] 3.0 mg/dL Normal 2.7-4.8 [facility] Comment on above: Order Comment: Speci men Type: BLOOD SPECIMENOrdering Facility: [facility] Address: [address] [place] [address] Performed By: #### 2 4321-2, 2777-1, ####CORNEL[facility] LABORATORYCLIA [id number] [place] [id number] [place] Basic metabolic 2000 panelon 11-09-2023 Anion gap [Moles/Vol] 12 mmol/L Normal 9-18 [facility] Comment on above: Order Comment: Speci men Type: BLOOD SPECIMENOrdering Facility: [facility] Address: [address] [place], [place] [address], [place] [address] Performed By: #### 2 777-1, , ####CORNELIUS LABORATORYCLIA [id number] [place] [address] [place] Calcium [Mass/Vol] 9.3 mg/dL Normal 8.5-10.2 [facility] Comment on above: Order Comment: Speci men Type: BLOOD SPECIMENOrdering Facility: [facility] Address: [address] [place] [id number] Performed By: #### 2 777-1, , ####[facility] LABORATORYCLIA [id number] [place] [id number] [place] Chloride [Moles/Vol] 100 mmol/L Normal 97-105 [facility] Comment on above: Order Comment: Speci men Type: BLOOD SPECIMENOrdering Facility: [facility] Address: [address] [place] [address] Performed By: #### 2 777-1, , ####[facility] LABORATORYCLIA [id number] [place] [id number] [place] CO2 [Moles/Vol] 27 mmol/L Normal 22-30 [facility] Comment on above: Order Comment: Speci men Type: BLOOD SPECIMENOrdering Facility: [facility] Address: [address] [place] [id number] Performed By: #### 2 777-1, , ####[facility] LABORATORYCLIA [id number] [place] [id number] [place] Creatinine [Mass/Vol] 0.64 mg/dL Normal 0.58-0.96 [facility] Comment on above: Order Comment: Speci men Type: BLOOD SPECIMENOrdering Facility: [facility] Address: [address] [id number] Performed By: #### 2 777-1, , ####[facility] LABORATORYCLIA [id number] [place] [address] [place] Creatinine and Glomerular filtration rate.predicted panel (S/P/Bld) 95 mL/min/1.73m??? Normal >=60 [facility] Comment on above: Order Comment: Mason simpson Type: BLOOD SPECIMENOrdering Facility: [facility] Address: [address] [place] [address] Result Comment: Farhana mated Glomerular Filtration Rate [...] actual GFR. Performed By: #### 2 777-1, 02866-4, 84052-4 ####PORTER LABORATORYCLIA [id number] [place] [id number] [place] Glucose [Mass/Vol] 122 mg/dL High 74-99 [facility] Comment on above: Order Comment: Mason simpson Type: BLOOD SPECIMENOrdering Facility: [facility] Address: [address] [place] [address] Result Comment: The [place] Diabetes Association (ADA) provides guidance for cutoff [...] Standards of Medical Care in Diabetes 2016, [place] [employer]. Diabetes Care. 2016.39(Suppl 1). Performed By: #### 2 777-1, , 96767-2 ####PORTER LABORATORYCLIA [id number] [place] [id number] [place] Potassium [Moles/Vol] 3.9 mmol/L Normal 3.7-5.1 [facility] Comment on above: Order Comment: Speci men Type: BLOOD SPECIMENOrdering Facility: [facility] Address: [address] [place] [address] Performed By: #### 2 777-1, , ####CORNEL[facility]US LABORATORYCLIA [id number] [place] [id number] [place] Sodium [Moles/Vol] 139 mmol/L Normal 136-144 [facility] Comment on above: Order Comment: Speci men Type: BLOOD SPECIMENOrdering Facility: [facility] Address: [address] [place] [address] Performed By: #### 2 777-1, , ####PORTER LABORATORYCLIA [id number] [place] [address] [place] Urea nitrogen [Mass/Vol] 8 mg/dL Normal 7-21 [facility] Comment on above: Order Comment: Speci men Type: BLOOD SPECIMENOrdering Facility: [facility] Address: [address] [place] [address] Performed By: #### 2 777-1, , ####[facility] LABORATORYCLIA [id number] [place] [id number] [place] CASE MGT INIT ASSESon 2023 CASE MGT INIT ASSES Normal [facility] CBC panel Auto (Bld)on 11-08 Erythrocyte distribution width (RBC) [Ratio] 13.5 % Normal 11.5-15.0 [facility] Comment on above: Order Comment: Speci men Type: BLOOD SPECIMENOrdering Facility: [facility] Address: [address] [place] [address] Performed By: #### 5 8410-2 ####PORTER LABORATORYCLIA [id number] [place] [id number] [place] Hematocrit (Bld) [Volume fraction] 32.2 % Low 36.0-46.0 [facility] Comment on above: Order Comment: Speci men Type: BLOOD SPECIMENOrdering Facility: [facility] Address: [address] [place] [address] Performed By: #### 5 8410-2 ####[facility] LABORATORYCLIA [id number] [address] [place] [facility] Hemoglobin (Bld) [Mass/Vol] 11.2 g/dL Low 11.5-15.5 [facility] Comment on above: Order Comment: Speci men Type: BLOOD SPECIMENOrdering Facility: [facility] Address: [address] [place] [address] Performed By: #### 5 8410-2 ####[facility] LABORATORYCLIA [id number] [address] MCH (RBC) [Entitic mass] 30.4 pg Normal 26.0-34.0 [facility] Comment on above: Order Comment: Speci men Type: BLOOD SPECIMENOrdering Facility: [facility] Address: [address] [place] [address] Performed By: #### 5 8410-2 ####[facility] LABORATORYCLIA [id number] [address] MCHC (RBC) [Mass/Vol] 34.8 g/dL Normal 30.5-36.0 [facility] Comment on above: Order Comment: Speci men Type: BLOOD SPECIMENOrdering Facility: [facility] Address: [address] [place] [address] Performed By: #### 5 8410-2 ####[facility] LABORATORYCLIA [id number] [address] MCV (RBC) [Entitic vol] 87.5 fL Normal 80.0-100.0 [facility] Comment on above: Order Comment: Speci men Type: BLOOD SPECIMENOrdering Facility: [facility] Address: [address] [place] [address] Performed By: #### 5 8410-2 ####[facility] LABORATORYCLIA [id number] [address] [place] Nucleated RBC (Bld) [#/Vol] 10*3/uL Normal <0.01 [facility] Comment on above: Order Comment: Speci men Type: BLOOD SPECIMENOrdering Facility: [facility] Address: [address] [place] [address] Performed By: #### 5 8410-2 ####[facility]US LABORATORYCLIA [id number] [place] [id number] [place] Platelet mean volume (Bld) [Entitic vol] 8.3 fL Low 9.0-12.7 [facility] Comment on above: Order Comment: Speci men Type: BLOOD SPECIMENOrdering Facility: [facility] Address: [address] [place] [address] Performed By: #### 5 8410-2 ####[facility] LABORATORYCLIA [id number] [place] [id number] [place] Platelets (Bld) [#/Vol] 270 10*3/uL Normal 150-400 [facility] Comment on above: Order Comment: Speci men Type: BLOOD SPECIMENOrdering Facility: [facility] Address: [address] [place] [address] Performed By: #### 5 8410-2 ####[facility] LABORATORYCLIA [id number] [place] [id number] [place] RBC (Bld) [#/Vol] 3.68 10*6/uL Low 3.90-5.20 [facility] Comment on above: Order Comment: Speci men Type: BLOOD SPECIMENOrdering Facility: [facility] Address: [address] [place] [address] Performed By: #### 5 8410-2 ####[facility] LABORATORYCLIA [id number] [place] [id number] [place] WBC (Bld) [#/Vol] 8.53 10*3/uL Normal 3.70-11.00 [facility] Comment on above: Order Comment: Speci men Type: BLOOD SPECIMENOrdering Facility: [facility] Address: [address] [place] [address] Performed By: #### 5 8410-2 ####[facility] LABORATORYCLIA [id number] [place] [address] [place] CNDSon 11-09-2023 CNDS Normal [facility] Magnesium SerPl-mCncon 11-08 Magnesium [Mass/Vol] 1.6 mg/dL Low 1.7-2.3 [facility] Comment on above: Order Comment: Speci men Type: BLOOD SPECIMENOrdering Facility: [facility] Address: [address] [place] [address] Performed By: #### 2 777-1, , 74271-1 ####[facility] LABORATORYCLIA [id number] [place] [id number] [place] PT EDon 11-09-2023 PT ED Normal [facility] Phosphate SerPl-mCncon 11-08 Phosphate [Mass/Vol] 2.5 mg/dL Low 2.7-4.8 [facility] Comment on above: Order Comment: Speci men Type: BLOOD SPECIMENOrdering Facility: [facility] Address: [address] [place] [address] Performed By: #### 2 777-1, , 11313-4 ####[facility] LABORATORYCLIA [id number] [place] [id number] [place] ANES POSTPROC EVALon 024 ANES POSTPROC EVAL Normal [facility] ANES PRE-OPon 11-08-2023 ANES PRE-OP Normal [facility] BRIEF OP NOTon 11-08-2023 BRIEF OP NOT Normal [facility] Basic metabolic 2000 panelon 11-08-2023 Anion gap [Moles/Vol] 21 mmol/L High 9-18 [facility] Comment on above: Order Comment: Speci men Type: BLOOD SPECIMENOrdering Facility: [facility] Address: [address] [place], [place] [address] [address] Performed By: #### H STNT, 84991-5 ####[facility] LABORATORYCLIA [id number] [place] [id number] [place] Calcium [Mass/Vol] 8.7 mg/dL Normal 8.5-10.2 [facility] Comment on above: Order Comment: Speci men Type: BLOOD SPECIMENOrdering Facility: [facility] Address: [address] [place] [address] Performed By: #### H STNT, 24790-4 ####[facility] LABORATORYCLIA [id number] [place] [id number] [place] Chloride [Moles/Vol] 100 mmol/L Normal 97-105 [facility] Comment on above: Order Comment: Speci men Type: BLOOD SPECIMENOrdering Facility: [facility] Address: [address] [place] [address] Performed By: #### H STNT, 30320-4 ####[facility] LABORATORYCLIA [id number] [place] [address] [place] CO2 [Moles/Vol] 15 mmol/L Low 22-30 [facility] Comment on above: Order Comment: Speci men Type: BLOOD SPECIMENOrdering Facility: [facility] Address: [address] [place] [address] Performed By: #### H STNT, 58849-7 ####[facility] LABORATORYCLIA [id number] [place] [address] [place] Creatinine [Mass/Vol] 0.63 mg/dL Normal 0.58-0.96 [facility] Comment on above: Order Comment: Speci men Type: BLOOD SPECIMENOrdering Facility: [facility] Address: [address] [place] [address] Performed By: #### H STNT, 02562-7 ####[facility] LABORATORYCLIA [id number] [place] [address] [place] Creatinine and Glomerular filtration rate.predicted panel (S/P/Bld) 96 mL/min/1.73m??? Normal >=60 [facility] Comment on above: Order Comment: Speci men Type: BLOOD SPECIMENOrdering Facility: [facility] Address: [address] [place] [address] Result Comment: Farhana mated Glomerular Filtration Rate [...] reflect actual GFR. Performed By: #### H CURT, 17519-5 ####[facility] LABORATORYCLIA [id number] [place] [id number] [place] Glucose [Mass/Vol] 96 mg/dL Normal 74-99 [facility] Comment on above: Order Comment: Speci men Type: BLOOD SPECIMENOrdering Facility: [facility] Address: [address] [place] [address] Result Comment: The [place] [employer] Association (ADA) provides guidance for cutoff [...] Standards of Medical Care in Diabetes 2016, [employer]. Diabetes Care. 2016.39(Suppl 1). Performed By: #### H CURT, 08627-9 ####[facility] LABORATORYCLIA [id number] [place] [id number] [place] Potassium [Moles/Vol] 3.7 mmol/L Normal 3.7-5.1 [facility] Comment on above: Order Comment: [facility] Type: BLOOD SPECIMENOrdering Facility: [facility] Address: [address] [place] [id number] Performed By: #### H CURT, 52482-1 ####[facility] LABORATORYCLIA [id number] [place] [id number] [place] Sodium [Moles/Vol] 136 mmol/L Normal 136-144 [facility] Comment on above: Order Comment: Speci men Type: BLOOD SPECIMENOrdering Facility: [facility] Address: [address] [place] [address] Performed By: #### H STNT, 12400-5 ####[facility] LABORATORYCLIA [id number] [place] [id number] [place] Urea nitrogen [Mass/Vol] 18 mg/dL Normal 7-21 [facility] Comment on above: Order Comment: Speci men Type: BLOOD SPECIMENOrdering Facility: [facility] Address: [address] [place] [address] Performed By: #### H STNT, 00145-8 ####[facility] LABORATORYCLIA [id number] [place] [address] [place] Anion gap [Moles/Vol] 19 mmol/L High 9-18 [facility] Comment on above: Order Comment: Speci men Type: BLOOD SPECIMENOrdering Facility: [facility] Address: [address] [place] [address] Performed By: #### 2 4321-2, 2776-07, ####[facility] LABORATORYCLIA [id number] [place] [id number] [place] Calcium [Mass/Vol] 8.7 mg/dL Normal 8.5-10.2 [facility] Comment on above: Order Comment: Speci men Type: BLOOD SPECIMENOrdering Facility: [facility] Address: [address] [place] [address] Performed By: #### 2 4321-2, 2776-07, ####[facility] LABORATORYCLIA [id number] [place] [id number] [place] Chloride [Moles/Vol] 105 mmol/L Normal 97-105 [facility] Comment on above: Order Comment: Speci men Type: BLOOD SPECIMENOrdering Facility: [facility] Address: [address] [place] [address] Performed By: #### 2 4321-2, 2776-07, ####[facility] LABORATORYCLIA [id number] [place] [id number] [place] CO2 [Moles/Vol] 18 mmol/L Low 22-30 [facility] Comment on above: Order Comment: Speci men Type: BLOOD SPECIMENOrdering Facility: [facility] Address: [address] [place] [address] Performed By: #### 2 4321-2, 2777-, ####[facility] LABORATORYCLIA [id number] [place] [id number] [place] Creatinine [Mass/Vol] 0.76 mg/dL Normal 0.58-0.96 [facility] Comment on above: Order Comment: Speci men Type: BLOOD SPECIMENOrdering Facility: [facility] Address: [address] [place] [address] Performed By: #### 2 4321-2, 277-, ####PORTER LABORATORYCLIA [id number] [address] OF [facility] Creatinine and Glomerular filtration rate.predicted panel (S/P/Bld) 84 mL/min/1.73m??? Normal >=60 [facility] Comment on above: Order Comment: Speci men Type: BLOOD SPECIMENOrdering Facility: [facility] Address: [address] [place] [address] Result Comment: Farhana mated Glomerular Filtration Rate [...] GFR. Performed By: #### 2 4321-2, 2777-, ####POR[facility] LABORATORYCLIA [id number] [place] [id number] [place] Glucose [Mass/Vol] 57 mg/dL Low 74-99 [facility] Comment on above: Order Comment: Speci men Type: BLOOD SPECIMENOrdering Facility: [facility] Address: [address], [place] [address] Result Comment: The [place] Diabetes Association (ADA) provides guidance for cutoff [...] Standards of Medical Care in Diabetes 2016, [place] [employer]. Diabetes Care. 2016.39(Suppl 1). Performed By: #### 2 4321-2, 2776-07, ####[facility] LABORATORYCLIA [id number] [place] [address] [place] Potassium [Moles/Vol] 4.3 mmol/L Normal 3.7-5.1 [facility] Comment on above: Order Comment: Mason simpson Type: BLOOD SPECIMENOrdering Facility: [facility] Address: [address] [place] [address] Performed By: #### 2 4321-2, 2776-07, ####[facility] LABORATORYCLIA [id number] [place] [id number] [place] Sodium [Moles/Vol] 142 mmol/L Normal 136-144 [facility] Comment on above: Order Comment: Mason simpson Type: BLOOD SPECIMENOrdering Facility: [facility] Address: [address] [place] [address] Performed By: #### 2 4321-2, 2776-07, ####[facility] LABORATORYCLIA [id number] [place] [id number] [place] Urea nitrogen [Mass/Vol] 20 mg/dL Normal 7-21 [facility] Comment on above: Order Comment: Mason simpson Type: BLOOD SPECIMENOrdering Facility: [facility] Address: [address] [place] [address] Performed By: #### 2 4321-2, 2776-07, 56180-5 ####[facility] LABORATORYCLIA [id number] [place] [id number] [place] CBC W Auto Differential pane l (Bld)on 11-08-2023 Basophils (Bld) [#/Vol] 10*3/uL Normal <0.11 [facility] Comment on above: Order Comment: Speci men Type: BLOOD SPECIMENOrdering Facility: [facility] Address: [address] [place] [address] Performed By: #### 5 7021-8 ####[facility] LABORATORYCLIA [id number] [place] [id number] [place] Basophils/100 WBC (Bld) 0.2 % Normal [facility] Comment on above: Order Comment: Speci men Type: BLOOD SPECIMENOrdering Facility: [facility] Address: [address] [place] [address] Performed By: #### 5 7021-8 ####[facility] LABORATORYCLIA [id number] [place] [address] [place] Differential cell count method Nom (Bld) Auto Normal [facility] Comment on above: Order Comment: Speci men Type: BLOOD SPECIMENOrdering Facility: [facility] Address: [address] [place] [address] Performed By: #### 5 7021-8 ####[facility] LABORATORYCLIA [id number] [place] [id number] [place] Eosinophils (Bld) [#/Vol] 10*3/uL Normal <0.46 [facility] Comment on above: Order Comment: Speci men Type: BLOOD SPECIMENOrdering Facility: [facility] Address: [address] [place] [address] Performed By: #### 5 7021-8 ####[facility] LABORATORYCLIA [id number] [address] [place] Eosinophils/100 WBC (Bld) 0.0 % Normal [facility] Comment on above: Order Comment: Speci men Type: BLOOD SPECIMENOrdering Facility: [facility] Address: [address] [place] [address] Performed By: #### 5 7021-8 ####[facility] LABORATORYCLIA [id number] [place] [id number] [place] Erythrocyte distribution width (RBC) [Ratio] 13.3 % Normal 11.5-15.0 [facility] Comment on above: Order Comment: Speci men Type: BLOOD SPECIMENOrdering Facility: [facility] Address: [address] [place] [address] Performed By: #### 5 7021-8 ####[facility] LABORATORYCLIA [id number] [place] [address] [place] Hematocrit (Bld) [Volume fraction] 31.6 % Low 36.0-46.0 [facility] Comment on above: Order Comment: Speci men Type: BLOOD SPECIMENOrdering Facility: [facility] Address: [address] [place] [address] Performed By: #### 5 7021-8 ####[facility] LABORATORYCLIA [id number] [place] [address] [place] Hemoglobin (Bld) [Mass/Vol] 10.9 g/dL Low 11.5-15.5 [facility] Comment on above: Order Comment: Speci men Type: BLOOD SPECIMENOrdering Facility: [facility] Address: [address] [place] [address] Performed By: #### 5 7021-8 ####[facility] LABORATORYCLIA [id number] [place] [id number] [place] Immature granulocytes (Bld) [#/Vol] 0.06 10*3/uL Normal <0.10 [facility] Comment on above: Order Comment: Speci men Type: BLOOD SPECIMENOrdering Facility: [facility] Address: [address] [place] [address] Performed By: #### 5 7021-8 ####[facility] LABORATORYCLIA [id number] [address] [place] Immature granulocytes/100 WBC (Bld) 0.6 % Normal [facility] Comment on above: Order Comment: Speci men Type: BLOOD SPECIMENOrdering Facility: [facility] Address: [address] [place] [address] Performed By: #### 5 7021-8 ####[facility] LABORATORYCLIA [id number] [address] STATES [facility] Lymphocytes (Bld) [#/Vol] 0.48 10*3/uL Low 1.00-4.00 [facility] Comment on above: Order Comment: Speci men Type: BLOOD SPECIMENOrdering Facility: [facility] Address: [address] [place] [address] Performed By: #### 5 7021-8 ####[facility] LABORATORYCLIA [id number] [address] Lymphocytes/100 WBC (Bld) 4.5 % Normal [facility] Comment on above: Order Comment: Speci men Type: BLOOD SPECIMENOrdering Facility: [facility] Address: [address] [place] [address] Performed By: #### 5 7021-8 ####[facility] LABORATORYCLIA [id number] [address] [place] MCH (RBC) [Entitic mass] 30.3 pg Normal 26.0-34.0 [facility] Comment on above: Order Comment: Speci men Type: BLOOD SPECIMENOrdering Facility: [facility] Address: [address] [place] [address] Performed By: #### 5 7021-8 ####[facility] LABORATORYCLIA [id number] [address] [place] MCHC (RBC) [Mass/Vol] 34.5 g/dL Normal 30.5-36.0 [facility] Comment on above: Order Comment: Speci men Type: BLOOD SPECIMENOrdering Facility: [facility] Address: [address] [place] [address] Performed By: #### 5 7021-8 ####[facility] LABORATORYCLIA [id number] [address] [place] MCV (RBC) [Entitic vol] 87.8 fL Normal 80.0-100.0 [facility] Comment on above: Order Comment: Speci men Type: BLOOD SPECIMENOrdering Facility: [facility] Address: [address] [place] [address] Performed By: #### 5 7021-8 ####[facility] LABORATORYCLIA [id number] [place] [address] [place] Monocytes (Bld) [#/Vol] 0.33 10*3/uL Normal <0.87 [facility] Comment on above: Order Comment: Speci men Type: BLOOD SPECIMENOrdering Facility: [facility] Address: [address] [place] [address] Performed By: #### 5 7021-8 ####C[facility] LABORATORYCLIA [id number] [address] Monocytes/100 WBC (Bld) 3.1 % Normal [facility] Comment on above: Order Comment: Speci men Type: BLOOD SPECIMENOrdering Facility: [facility] Address: [address] [place] [address] Performed By: #### 5 7021-8 ####[facility] LABORATORYCLIA [id number] [place] [address] [place] Neutrophils (Bld) [#/Vol] 9.79 10*3/uL High 1.45-7.50 [facility] Comment on above: Order Comment: Speci men Type: BLOOD SPECIMENOrdering Facility: [facility] Address: [address] [place] [address] Performed By: #### 5 7021-8 ####C[facility] LABORATORYCLIA [id number] [place] [address] [place] Neutrophils/100 WBC (Bld) 91.6 % Normal [facility] Comment on above: Order Comment: Speci men Type: BLOOD SPECIMENOrdering Facility: [facility] Address: [address] [place] [address] Performed By: #### 5 7021-8 ####C[facility] LABORATORYCLIA [id number] [place] [address] [place] Nucleated RBC (Bld) [#/Vol] 10*3/uL Normal <0.01 [facility] Comment on above: Order Comment: Speci men Type: BLOOD SPECIMENOrdering Facility: [facility] Address: [address] [place] [address] Performed By: #### 5 7021-8 ####[facility] LABORATORYCLIA [id number] [place] [id number] [place] Nucleated RBC/100 WBC (Bld) [Ratio] 0.0 /100 WBC Normal [facility] Comment on above: Order Comment: Speci men Type: BLOOD SPECIMENOrdering Facility: [facility] Address: [address] [place] [address] Performed By: #### 5 7021-8 ####[facility] LABORATORYCLIA [id number] [place] [id number] [place] Platelet mean volume (Bld) [Entitic vol] 8.3 fL Low 9.0-12.7 [facility] Comment on above: Order Comment: Speci men Type: BLOOD SPECIMENOrdering Facility: [facility] Address: [address] [place] [address] Performed By: #### 5 7021-8 ####POR[facility] LABORATORYCLIA [id number] [place] [id number] [place] Platelets (Bld) [#/Vol] 251 10*3/uL Normal 150-400 [facility] Comment on above: Order Comment: Speci men Type: BLOOD SPECIMENOrdering Facility: [facility] Address: [address] [place] [address] Performed By: #### 5 7021-8 ####[facility] LABORATORYCLIA [id number] [place] [id number] [place] RBC (Bld) [#/Vol] 3.60 10*6/uL Low 3.90-5.20 [facility] Comment on above: Order Comment: Speci men Type: BLOOD SPECIMENOrdering Facility: [facility] Address: [address] [place] [address] Performed By: #### 5 7021-8 ####[facility] LABORATORYCLIA [id number] [place] [id number] [place] WBC (Bld) [#/Vol] 10.68 10*3/uL Normal 3.70-11.00 [facility] Comment on above: Order Comment: Speci men Type: BLOOD SPECIMENOrdering Facility: [facility] Address: [address] [place] [address] Performed By: #### 5 7021-8 ####PORTER LABORATORYCLIA [id number] [address] CBC panel Auto (Bld)on 11-07 Erythrocyte distribution width (RBC) [Ratio] 13.7 % Normal 11.5-15.0 [facility] Comment on above: Order Comment: Speci men Type: BLOOD SPECIMENOrdering Facility: [facility] Address: [address] [place] [address] Performed By: #### 5 8410-2 ####PORTER LABORATORYCLIA [id number] [address] Hematocrit (Bld) [Volume fraction] 31.6 % Low 36.0-46.0 [facility] Comment on above: Order Comment: Speci men Type: BLOOD SPECIMENOrdering Facility: [facility] Address: [address] [place] [address] Performed By: #### 5 8410-2 ####PORTER LABORATORYCLIA [id number] [address] [place] Hemoglobin (Bld) [Mass/Vol] 10.5 g/dL Low 11.5-15.5 [facility] Comment on above: Order Comment: Speci men Type: BLOOD SPECIMENOrdering Facility: [facility] Address: [address] [place] [address] Performed By: #### 5 8410-2 ####PORTER LABORATORYCLIA [id number] [address] MCH (RBC) [Entitic mass] 30.3 pg Normal 26.0-34.0 [facility] Comment on above: Order Comment: Speci men Type: BLOOD SPECIMENOrdering Facility: [facility] Address: [address] [place] [address] Performed By: #### 5 8410-2 ####[facility] LABORATORYCLIA [id number] [place] [id number] [place] MCHC (RBC) [Mass/Vol] 33.2 g/dL Normal 30.5-36.0 [facility] Comment on above: Order Comment: Speci men Type: BLOOD SPECIMENOrdering Facility: [facility] Address: [address] [place] [address] Performed By: #### 5 8410-2 ####[facility] LABORATORYCLIA [id number] [address] [place] MCV (RBC) [Entitic vol] 91.1 fL Normal 80.0-100.0 [facility] Comment on above: Order Comment: Speci men Type: BLOOD SPECIMENOrdering Facility: [facility] Address: [address] [place] [address] Performed By: #### 5 8410-2 ####[facility] LABORATORYCLIA [id number] [place] [address] [place] Nucleated RBC (Bld) [#/Vol] 10*3/uL Normal <0.01 [facility] Comment on above: Order Comment: Speci men Type: BLOOD SPECIMENOrdering Facility: [facility] Address: [address] [place] [address] Performed By: #### 5 8410-2 ####[facility] LABORATORYCLIA [id number] [place] [address] [place] Platelet mean volume (Bld) [Entitic vol] 8.7 fL Low 9.0-12.7 [facility] Comment on above: Order Comment: Speci men Type: BLOOD SPECIMENOrdering Facility: [facility] Address: [address] [place] [address] Performed By: #### 5 8410-2 ####[facility] LABORATORYCLIA [id number] [place] [address] [place] Platelets (Bld) [#/Vol] 239 10*3/uL Normal 150-400 [facility] Comment on above: Order Comment: Speci men Type: BLOOD SPECIMENOrdering Facility: [facility] Address: [address] [place] [address] Performed By: #### 5 8410-2 ####[facility] LABORATORYCLIA [id number] [place] [address] [place] RBC (Bld) [#/Vol] 3.47 10*6/uL Low 3.90-5.20 [facility] Comment on above: Order Comment: Speci men Type: BLOOD SPECIMENOrdering Facility: [facility] Address: [address] [place] [address] Performed By: #### 5 8410-2 ####PORTER LABORATORYCLIA [id number] [place] [address] [place] WBC (Bld) [#/Vol] 4.61 10*3/uL Normal 3.70-11.00 [facility] Comment on above: Order Comment: Speci men Type: BLOOD SPECIMENOrdering Facility: [facility] Address: [address] [place] [address] Performed By: #### 5 8410-2 ####PORTER LABORATORYCLIA [id number] [address] [place] HIGH SENSITIVITY TROPONIN To n 11-08-2023 Troponin T.cardiac High sensitivity method [Mass/Vol] 11 ng/L Normal <12 [facility] Comment on above: Order Comment: Speci men Type: BLOOD SPECIMENOrdering Facility: [facility] Address: [address] [place] [address] Result Comment: When assessing risk for acute [...] day MACE. Performed By: #### H STNT, 80394-0 ####[facility] LABORATORYCLIA [id number] [place] [id number] [facility] [place] HISTORY PHYSICALon HISTORY PHYSICAL Normal [facility] Magnesium SerPl-mCncon 11-07 Magnesium [Mass/Vol] 1.9 mg/dL Normal 1.7-2.3 [facility] Comment on above: Order Comment: Speci men Type: BLOOD SPECIMENOrdering Facility: [facility] Address: [address] [place] [address] Performed By: #### 2 4321-2, 277-, ####PORTER LABORATORYCLIA [id number] [place] [id number] [facility] NURSING PROGon 11-08-2023 NURSING PROG Normal [facility] NURSING PROG Normal [facility] OPERATIVE NOon 11-08-2023 OPERATIVE NO Normal [facility] PT EDon 11-08-2023 PT ED Normal [facility] Phosphate SerPl-mCncon 11-07 Phosphate [Mass/Vol] 4.2 mg/dL Normal 2.7-4.8 [facility] Comment on above: Order Comment: Speci men Type: BLOOD SPECIMENOrdering Facility: [facility] Address: [address] [place] [address] Performed By: #### 2 4321-2, 2776-07, ####PORTER LABORATORYCLIA [id number] [place] [id number] [facility] SURGICAL PATHOLOGYon 024 CASE REPORT Normal [facility] Comment on above: Order Comment: Speci men Type: TISSUE SPECIMENOrdering Facility: [facility] Address: [address] [place] [address] Result Comment: Surg ical Pathology Report Case: [id number] Provider: Laisha Singer MD Collected: 11/08/2023 11:56 AMOrdering Location: [facility] Received: 11/08/2023 01:53 PM Operating RoomPathologist: Oscar Marshall MDSpecimen: Small Bowel, Ileostomy Performed By: #### S ####PORTER LABORATORYCLIA [id number] [address] CLINICAL HISTORY Normal [facility] Comment on above: Order Comment: Speci men Type: TISSUE SPECIMENOrdering Facility: [facility] Address: [address] [place] [address] Result Comment: Pre- op diagnosis:Attention to ileostomy (HCC) [Z43.2]Partial small bowel obstruction (HCC) [K56.600] Performed By: #### S ####PORTER LABORATORYCLIA [id number] [address] FINAL DIAGNOSIS Normal [facility] Comment on above: Order Comment: Speci men Type: TISSUE SPECIMENOrdering Facility: [facility] Address: [address] [place] [address] Result Comment: Ileo stomy, excision:- Enterocutaneous tissue with focal nonspecific inflammatory changes and mucosal erosion, consistent with ostomy site.JEL 11/10/2023 Performed By: #### S ####PORTER LABORATORYCLIA [id number] [address] FINAL PERFORMING LAB Normal [facility] Comment on above: Order Comment: Speci men Type: TISSUE SPECIMENOrdering Facility: [facility] Address: [address] [place] [address] Result Comment: Diag nostic interpretation performed at [facility], [address] [place] [address] CLIA# [id number] Director: Jax Suarez M.D. Performed By: #### S ####PORTER LABORATORYCLIA [id number] [address] GROSS DESCRIPTION Normal [facility] Comment on above: Order Comment: Speci men Type: TISSUE SPECIMENOrdering Facility: [facility] Address: [address] [place] [address] Result Comment: A. S mall Bowel, IleostomyReceived [...] with a wall thickness of 0.6 cm. Computer Repair Technician sections are submitted in one cassette.WE November 08, 2023 2:03 PMGross examination performed at [facility], [address] [place] [address] Performed By: #### S ####PORTER LABORATORYCLIA [id number] [place] [id number] [place] ALLIED HEALTHon 11-07-2023 ALLIED HEALTH Normal [facility] Basic metabolic 2000 panelon 11-07-2023 Anion gap [Moles/Vol] 12 mmol/L Normal 9-18 [facility] Comment on above: Order Comment: Speci men Type: BLOOD SPECIMENOrdering Facility: [facility] Address: [address] [place] [address] Performed By: #### 2 4321-2, , 2776-07 ####PORTER LABORATORYCLIA [id number] [place] [id number] [place] Calcium [Mass/Vol] 9.3 mg/dL Normal 8.5-10.2 [facility] Comment on above: Order Comment: Speci men Type: BLOOD SPECIMENOrdering Facility: [facility] Address: [address] [place] [id number] Performed By: #### 2 4321-2, , 2776-07 ####PORTER LABORATORYCLIA [id number] [place] [id number] [place] Chloride [Moles/Vol] 102 mmol/L Normal 97-105 [facility] Comment on above: Order Comment: Speci men Type: BLOOD SPECIMENOrdering Facility: [facility] Address: [address] [place] [address] Performed By: #### 2 4321-2, , 2776-07 ####PORTER LABORATORYCLIA [id number] [place] [id number] [place] CO2 [Moles/Vol] 22 mmol/L Normal 22-30 [facility] Comment on above: Order Comment: Speci men Type: BLOOD SPECIMENOrdering Facility: [facility] Address: [address] [place] [address] Performed By: #### 2 4321-2, , 2776-07 ####PORTER LABORATORYCLIA [id number] [place] [address] [place] Creatinine [Mass/Vol] 0.83 mg/dL Normal 0.58-0.96 [facility] Comment on above: Order Comment: Speci men Type: BLOOD SPECIMENOrdering Facility: [facility] Address: [address] [place] [address] Performed By: #### 2 4321-2, , 2776-07 ####PORTER LABORATORYCLIA [id number] [place] [id number] [place] Creatinine and Glomerular filtration rate.predicted panel (S/P/Bld) 76 mL/min/1.73m??? Normal >=60 [facility] Comment on above: Order Comment: Speci men Type: BLOOD SPECIMENOrdering Facility: [facility] Address: [address] [place] [address] Result Comment: Farhana mated Glomerular Filtration Rate [...] Performed By: #### 2 4321-2, , 2776-07 ####PORTER LABORATORYCLIA [id number] [place] [address] [place] Glucose [Mass/Vol] 94 mg/dL Normal 74-99 [facility] Comment on above: Order Comment: Speci men Type: BLOOD SPECIMENOrdering Facility: [facility] Address: [address] [place] [address] Result Comment: The [place] Diabetes Association (ADA) provides guidance for cutoff [...] Standards of Medical Care in Diabetes 2016, [place] [employer]. Diabetes Care. 2016.39(Suppl 1). Performed By: #### 2 4321-2, , 2776-07 ####PORTER LABORATORYCLIA [id number] [place] [id number] [place] Potassium [Moles/Vol] 4.0 mmol/L Normal 3.7-5.1 [facility] Comment on above: Order Comment: Mason simpson Type: BLOOD SPECIMENOrdering Facility: [facility] Address: [address] [place] [address] Performed By: #### 2 4321-2, , 2776-07 ####PORTER LABORATORYCLIA [id number] [place] [id number] [place] Sodium [Moles/Vol] 136 mmol/L Normal 136-144 [facility] Comment on above: Order Comment: Mason simpson Type: BLOOD SPECIMENOrdering Facility: [facility] Address: [address] [place] [id number] Performed By: #### 2 4321-2, , 2776-07 ####PORTER LABORATORYCLIA [id number] [place] [id number] [place] Urea nitrogen [Mass/Vol] 18 mg/dL Normal 7-21 [facility] Comment on above: Order Comment: Mason simpson Type: BLOOD SPECIMENOrdering Facility: [facility] Address: [address] [place] [id number] Performed By: #### 2 4321-2, , 2776-07 ####PORTER LABORATORYCLIA [id number] [address] CBC panel Auto (Bld)on 11-06 Erythrocyte distribution width (RBC) [Ratio] 14.2 % Normal 11.5-15.0 [facility] Comment on above: Order Comment: Speci men Type: BLOOD SPECIMENOrdering Facility: [facility] Address: [address] [place] [address] Performed By: #### 5 8410-2 ####[facility] LABORATORYCLIA [id number] [address] Hematocrit (Bld) [Volume fraction] 35.8 % Low 36.0-46.0 [facility] Comment on above: Order Comment: Speci men Type: BLOOD SPECIMENOrdering Facility: [facility] Address: [address] [place] [address] Performed By: #### 5 8410-2 ####[facility] LABORATORYCLIA [id number] [address] Hemoglobin (Bld) [Mass/Vol] 11.9 g/dL Normal 11.5-15.5 [facility] Comment on above: Order Comment: Speci men Type: BLOOD SPECIMENOrdering Facility: [facility] Address: [address] [place] [address] Performed By: #### 5 8410-2 ####[facility] LABORATORYCLIA [id number] [address] [place] MCH (RBC) [Entitic mass] 30.4 pg Normal 26.0-34.0 [facility] Comment on above: Order Comment: Speci men Type: BLOOD SPECIMENOrdering Facility: [facility] Address: [address] [place] [address] Performed By: #### 5 8410-2 ####[facility] LABORATORYCLIA [id number] [address] [place] MCHC (RBC) [Mass/Vol] 33.2 g/dL Normal 30.5-36.0 [facility] Comment on above: Order Comment: Speci men Type: BLOOD SPECIMENOrdering Facility: [facility] Address: [address] [place] [address] Performed By: #### 5 8410-2 ####PORTER LABORATORYCLIA [id number] [place] [id number] [place] MCV (RBC) [Entitic vol] 91.6 fL Normal 80.0-100.0 [facility] Comment on above: Order Comment: Speci men Type: BLOOD SPECIMENOrdering Facility: [facility] Address: [address] [place] [address] Performed By: #### 5 8410-2 ####PORTER LABORATORYCLIA [id number] [place] [address] [place] Nucleated RBC (Bld) [#/Vol] 10*3/uL Normal <0.01 [facility] Comment on above: Order Comment: Speci men Type: BLOOD SPECIMENOrdering Facility: [facility] Address: [address] [place] [address] Performed By: #### 5 8410-2 ####PORTER LABORATORYCLIA [id number] [place] [address] [place] Platelet mean volume (Bld) [Entitic vol] 8.2 fL Low 9.0-12.7 [facility] Comment on above: Order Comment: Speci men Type: BLOOD SPECIMENOrdering Facility: [facility] Address: [address] [place] [address] Performed By: #### 5 8410-2 ####PORTER LABORATORYCLIA [id number] [place] [id number] [place] Platelets (Bld) [#/Vol] 271 10*3/uL Normal 150-400 [facility] Comment on above: Order Comment: Speci men Type: BLOOD SPECIMENOrdering Facility: [facility] Address: [address] [place] [address] Performed By: #### 5 8410-2 ####PORTER LABORATORYCLIA [id number] [place] [id number] [place] RBC (Bld) [#/Vol] 3.91 10*6/uL Normal 3.90-5.20 [facility] Comment on above: Order Comment: Speci men Type: BLOOD SPECIMENOrdering Facility: [facility] Address: [address] [place] [address] Performed By: #### 5 8410-2 ####C[facility] LABORATORYCLIA [id number] [place] [id number] [place] WBC (Bld) [#/Vol] 5.03 10*3/uL Normal 3.70-11.00 [facility] Comment on above: Order Comment: Speci men Type: BLOOD SPECIMENOrdering Facility: [facility] Address: [address] [place] [address] Performed By: #### 5 8410-2 ####PORTER LABORATORYCLIA [id number] [place] [address] [place] Magnesium SerPl-mCncon 11-06 Magnesium [Mass/Vol] 2.0 mg/dL Normal 1.7-2.3 [facility] Comment on above: Order Comment: Speci men Type: BLOOD SPECIMENOrdering Facility: [facility] Address: [address] [place] [address] Performed By: #### 2 4321-2, , 2776-07 ####PORTER LABORATORYCLIA [id number] [place] [id number] [place] NURSING PROGon 11-07-2023 NURSING PROG Normal [facility] NURSING PROG Normal [facility] Phosphate SerPl-mCncon 11-06 Phosphate [Mass/Vol] 4.6 mg/dL Normal 2.7-4.8 [facility] Comment on above: Order Comment: Speci men Type: BLOOD SPECIMENOrdering Facility: [facility] Address: [address] [place] [address] Performed By: #### 2 4321-2, , 2776-07 ####PORTER LABORATORYCLIA [id number] [place] [id number] [place] XR COLON SINGLE CONTRASTon 0 11-07-2023 XR COLON SINGLE CONTRAST Normal [facility] ALLIED HEALTHon 11-06-2023 ALLIED HEALTH Normal [facility] CBC W Auto Differential pane l (Bld)on 11-06-2023 Basophils (Bld) [#/Vol] 0.03 10*3/uL Normal <0.11 [facility] Comment on above: Order Comment: Speci men Type: BLOOD SPECIMENOrdering Facility: [facility] Address: [address] [place] [address] Performed By: #### 5 7021-8 ####CORNELIUS LABORATORYCLIA [id number] [place] [id number] [place] Basophils/100 WBC (Bld) 0.4 % Normal [facility] Comment on above: Order Comment: Speci men Type: BLOOD SPECIMENOrdering Facility: [facility] Address: [address] [place] [address] Performed By: #### 5 7021-8 ####CORNELIUS LABORATORYCLIA [id number] [place] [address] [place] Differential cell count method Nom (Bld) Auto Normal [facility] Comment on above: Order Comment: Speci men Type: BLOOD SPECIMENOrdering Facility: [facility] Address: [address] [place] [address] Performed By: #### 5 7021-8 ####[facility] LABORATORYCLIA [id number] [place] [address] [place] Eosinophils (Bld) [#/Vol] 0.11 10*3/uL Normal <0.46 [facility] Comment on above: Order Comment: Speci men Type: BLOOD SPECIMENOrdering Facility: [facility] Address: [address] [place] [address] Performed By: #### 5 7021-8 ####CORNELIUS LABORATORYCLIA [id number] [place] [id number] [place] Eosinophils/100 WBC (Bld) 1.4 % Normal [facility] Comment on above: Order Comment: Speci men Type: BLOOD SPECIMENOrdering Facility: [facility] Address: [address] [place] [address] Performed By: #### 5 7021-8 ####CORNELIUS LABORATORYCLIA [id number] [place] [address] [place] Erythrocyte distribution width (RBC) [Ratio] 13.9 % Normal 11.5-15.0 [facility] Comment on above: Order Comment: Speci men Type: BLOOD SPECIMENOrdering Facility: [facility] Address: [address] [place] [address] Performed By: #### 5 7021-8 ####CORNELIUS LABORATORYCLIA [id number] [place] [id number] [place] Hematocrit (Bld) [Volume fraction] 39.4 % Normal 36.0-46.0 [facility] Comment on above: Order Comment: Speci men Type: BLOOD SPECIMENOrdering Facility: [facility] Address: [address] [place] [address] Performed By: #### 5 7021-8 ####[facility] LABORATORYCLIA [id number] [place] [address] [place] Hemoglobin (Bld) [Mass/Vol] 13.3 g/dL Normal 11.5-15.5 [facility] Comment on above: Order Comment: Speci men Type: BLOOD SPECIMENOrdering Facility: [facility] Address: [address] [place] [address] Performed By: #### 5 7021-8 ####CORNELIUS LABORATORYCLIA [id number] [address] [place] Immature granulocytes (Bld) [#/Vol] 10*3/uL Normal <0.10 [facility] Comment on above: Order Comment: Speci men Type: BLOOD SPECIMENOrdering Facility: [facility] Address: [address] [place] [address] Performed By: #### 5 7021-8 ####[facility] LABORATORYCLIA [id number] [place] [id number] [place] Immature granulocytes/100 WBC (Bld) 0.3 % Normal [facility] Comment on above: Order Comment: Speci men Type: BLOOD SPECIMENOrdering Facility: [facility] Address: [address] [place] [address] Performed By: #### 5 7021-8 ####[facility] LABORATORYCLIA [id number] [place] [address] [place] Lymphocytes (Bld) [#/Vol] 0.63 10*3/uL Low 1.00-4.00 [facility] Comment on above: Order Comment: Speci men Type: BLOOD SPECIMENOrdering Facility: [facility] Address: [address] [place] [address] Performed By: #### 5 7021-8 ####[facility] LABORATORYCLIA [id number] [address] [place] Lymphocytes/100 WBC (Bld) 8.1 % Normal [facility] Comment on above: Order Comment: Speci men Type: BLOOD SPECIMENOrdering Facility: [facility] Address: [address] [place] [address] Performed By: #### 5 7021-8 ####[facility] LABORATORYCLIA [id number] [place] [address] [place] MCH (RBC) [Entitic mass] 30.1 pg Normal 26.0-34.0 [facility] Comment on above: Order Comment: Speci men Type: BLOOD SPECIMENOrdering Facility: [facility] Address: [address] [place] [address] Performed By: #### 5 7021-8 ####CORNELIUS LABORATORYCLIA [id number] [place] [id number] [place] MCHC (RBC) [Mass/Vol] 33.8 g/dL Normal 30.5-36.0 [facility] Comment on above: Order Comment: Speci men Type: BLOOD SPECIMENOrdering Facility: [facility] Address: [address] [place] [address] Performed By: #### 5 7021-8 ####[facility] LABORATORYCLIA [id number] [address] [place] MCV (RBC) [Entitic vol] 89.1 fL Normal 80.0-100.0 [facility] Comment on above: Order Comment: Speci men Type: BLOOD SPECIMENOrdering Facility: [facility] Address: [address] [place] [address] Performed By: #### 5 7021-8 ####CORNELIUS LABORATORYCLIA [id number] [place] [id number] [place] Monocytes (Bld) [#/Vol] 0.47 10*3/uL Normal <0.87 [facility] Comment on above: Order Comment: Speci men Type: BLOOD SPECIMENOrdering Facility: [facility] Address: [address] [place] [address] Performed By: #### 5 7021-8 ####[facility] LABORATORYCLIA [id number] [place] [id number] [place] Monocytes/100 WBC (Bld) 6.1 % Normal [facility] Comment on above: Order Comment: Speci men Type: BLOOD SPECIMENOrdering Facility: [facility] Address: [address] [place] [address] Performed By: #### 5 7021-8 ####CORN[facility] LABORATORYCLIA [id number] [place] [id number] [place] Neutrophils (Bld) [#/Vol] 6.48 10*3/uL Normal 1.45-7.50 [facility] Comment on above: Order Comment: Speci men Type: BLOOD SPECIMENOrdering Facility: [facility] Address: [address] [place] [address] Performed By: #### 5 7021-8 ####CORNEL[facility] LABORATORYCLIA [id number] [place] [id number] [place] Neutrophils/100 WBC (Bld) 83.7 % Normal [facility] Comment on above: Order Comment: Speci men Type: BLOOD SPECIMENOrdering Facility: [facility] Address: [address] [place] [address] Performed By: #### 5 7021-8 ####CORNEL[facility] LABORATORYCLIA [id number] [place] [id number] [place] Nucleated RBC (Bld) [#/Vol] 10*3/uL Normal <0.01 [facility] Comment on above: Order Comment: Speci men Type: BLOOD SPECIMENOrdering Facility: [facility] Address: [address] [place] [address] Performed By: #### 5 7021-8 ####C[facility] LABORATORYCLIA [id number] [place] [id number] [place] Nucleated RBC/100 WBC (Bld) [Ratio] 0.0 /100 WBC Normal [facility] Comment on above: Order Comment: Speci men Type: BLOOD SPECIMENOrdering Facility: [facility] Address: [address] [place] [address] Performed By: #### 5 7021-8 ####[facility] LABORATORYCLIA [id number] [place] [address] [place] Platelet mean volume (Bld) [Entitic vol] 8.5 fL Low 9.0-12.7 [facility] Comment on above: Order Comment: Speci men Type: BLOOD SPECIMENOrdering Facility: [facility] Address: [address] [place] [address] Performed By: #### 5 7021-8 ####[facility] LABORATORYCLIA [id number] [place] [address] [place] Platelets (Bld) [#/Vol] 329 10*3/uL Normal 150-400 [facility] Comment on above: Order Comment: Speci men Type: BLOOD SPECIMENOrdering Facility: [facility] Address: [address] [place] [address] Performed By: #### 5 7021-8 ####[facility] LABORATORYCLIA [id number] [place] [id number] [place] RBC (Bld) [#/Vol] 4.42 10*6/uL Normal 3.90-5.20 [facility] Comment on above: Order Comment: Speci men Type: BLOOD SPECIMENOrdering Facility: [facility] Address: [address] [place] [address] Performed By: #### 5 7021-8 ####[facility] LABORATORYCLIA [id number] [place] [id number] [place] WBC (Bld) [#/Vol] 7.74 10*3/uL Normal 3.70-11.00 [facility] Comment on above: Order Comment: Speci men Type: BLOOD SPECIMENOrdering Facility: [facility] Address: [address] [id number] Performed By: #### 5 7021-8 ####C[facility]EL[facility] LABORATORYCLIA [id number] [place] [id number] [facility] CNPRosmery 11-06-2023 CNPN Telephone (HEMASA) ----- EVAN GILL ([id number]) 1955 F Date Time Provider Department 11/06/23 COLLEEN SOLORIO HEMASA During your visit today, we recorded the following information about you: Colleen Solorio RN 11/06/2023 12:48 PM Signed ----- Message from Tapan Corona MD sent at 11/06/2023 7:12 AM EDT ----- Please call with negative Signatera Colleen Solorio RN 11/06/2023 12:55 PM Signed Pt's daughter notified of results. Daughter states pt is currently in the ER at [facility] with a possible bowel obstruction. Pt was scheduled for follow up appointment with Dr Singer tomorrow so they are hopeful that she'll be able to see her today. Colleen Solorio RN Allergies As of Date: 11/06/2023 (No Known Allergies) Date Reviewed: 10/10/2023 Reviewed by: Stacy Pérez MA - Fully Assessed Reason for Visit: Care Coordination [1561] Cmt: Lab results Prescriptions as of 11/06/2023 - acetaminophen (TYLENOL) 500 mg tablet Take 2 tablets by mouth every 8 hours. - nitroglycerin sublingual (NITROQUICK) 0.4 mg SL tablet Dissolve 1 tablet under the tongue as needed for chest pain, may repeat every 5 minutes if no relief up to 3 times. - Amoxicillin 500 mg tablet FOR DENTAL WORK - omeprazole (PRILOSEC) 40 mg capsule Take 40 mg by mouth once daily. - vitamin D3/vitamin K2, MK4, (K2 PLUS D3 ORAL) Take 1 Dose by mouth once daily. - compounded progesterone 50 mg capsule Take 150 mg by mouth daily at bedtime. - Testosterone 12.5 mg/ 1.25 gram (1 %) glpm Apply 2 Pump as directed once daily. 0.5 MIL - ondansetron orally disintegrating (ZOFRAN ODT) 8 mg disintegrating tablet Take 1 tablet by mouth every 8 hours as needed for nausea/vomiting. - prochlorperazine (COMPAZINE) 10 mg tablet Take 1 tablet by mouth every 6 hours as needed. - ondansetron (ZOFRAN) 8 mg tablet Take 1 tablet by mouth every 8 hours as needed for nausea/vomiting. - vortioxetine (TRINTELLIX) 10 mg tablet Take 10 mg by mouth once daily. - oxybutynin ER (DITROPAN XL) 15 mg 24 hr Extended Rel Tab Take 15 mg by mouth. - aspirin, enteric coated (ASPIRIN, ENTERIC COATED) 81 mg EC tablet Take 81 mg by mouth once daily. - docosahexaenoic acid/epa (FISH OIL ORAL) Take 2,000 mg by mouth two times a day. - calcium carbonate/vitamin d3(CALCIUM 600 WITH VITAMIN D3 600 MG (1,500 MG)-400 UNIT CAP) Take 1 tablet by mouth once daily. Problem List As Of Date 11/06/2023 Noted Resolved OSTEOARTHROS NOS-ANKLE [M19.079] 12/20/2005 Personal History of Malignant Melanoma of Skin *04/28/2009 Rectal cancer (HCC) [C20] 06/14/2023 Iron deficiency anemia, unspecified [D50.9] 07/06/2023 Atrial fibrillation (HCC) [I48.91] 08/09/2023 Essential hypertension [I10] 04/25/2017 GERD (gastroesophageal reflux disease) [K21.9] 08/09/2023 Hemorrhoids [K64.9] 08/09/2023 Hyperlipidemia [E78.5] 08/09/2023 Mixed anxiety depressive disorder [F41.8] 08/09/2023 Rectal adenocarcinoma (HCC) [C20] 08/25/2023 Ileostomy present (HCC) [Z93.2] 08/26/2023 Encounter for ostomy care education [Z71.89] 08/26/2023 08/29/2023 Small bowel obstruction (HCC) [K56.609] 08/31/2023 09/04/2023 Ileostomy bag changed (HCC) [Z43.2] 08/31/2023 Encounter Status:Closed by COLLEEN SOLORIO on 11/06/23 [facility] Telephone ([facility]) ----- EVAN GILL ([id number]) 1955 F Date Time Provider Department 11/06/23 LAISHA SINGER [facility] During your visit today, we recorded the following information about you: Amber [place]wal 11/06/2023 11:39 AM Signed Patients Mom called in and patient is experiencing a possible bowel obstruction again. Patient was told by Dr Eckert to try to insert a glycerin suppository in to the stoma if she starts to have the symptoms/cramping/decreas ed. Mom stated she did and patient is having little movement. Patient is having abdominal again as well. Patient is seeing Dr. Singer tomorrow in clinic. Contact# [phone] Cierra Lindquist, KAYA 11/06/2023 1:32 PM Signed Noted. Informed team that she will be coming to the emergency room for concerns of a bowel obstruction. Allergies As of Date: 11/06/2023 (No Known Allergies) Date Reviewed: 11/06/2023 Reviewed by: Matthew Taylor, KAYA - Fully Assessed Reason for Visit: Patient Question [0536] Prescriptions as of 11/06/2023 - acetaminophen (TYLENOL) 500 mg tablet Take 2 tablets by mouth every 8 hours. - nitroglycerin sublingual (NITROQUICK) 0.4 mg SL tablet Dissolve 1 tablet under the tongue as needed for chest pain, may repeat every 5 minutes if no relief up to 3 times. - Amoxicillin 500 mg tablet FOR DENTAL WORK - omeprazole (PRILOSEC) 40 mg capsule Take 40 mg by mouth once daily. - vitamin D3/vitamin K2, MK4, (K2 PLUS D3 ORAL) Take 1 Dose by mouth once daily. - compounded progesterone 50 mg capsule Take 150 mg by mouth daily at bedtime. - Testosterone 12.5 mg/ 1.25 gram (1 %) glpm Apply 2 Pump as directed once daily. 0.5 MIL - ondansetron orally disintegrating (ZOFRAN ODT) 8 mg disintegrating tablet Take 1 tablet by mouth every 8 hours as needed for nausea/vomiting. - prochlorperazine (COMPAZINE) 10 mg tablet Take 1 tablet by mouth every 6 hours as needed. - ondansetron (ZOFRAN) 8 mg tablet Take 1 tablet by mouth every 8 hours as needed for nausea/vomiting. - vortioxetine (TRINTELLIX) 10 mg tablet Take 10 mg by mouth once daily. - oxybutynin ER (DITROPAN XL) 15 mg 24 hr Extended Rel Tab Take 15 mg by mouth. - aspirin, enteric coated (ASPIRIN, ENTERIC COATED) 81 mg EC tablet Take 81 mg by mouth once daily. - docosahexaenoic acid/epa (FISH OIL ORAL) Take 2,000 mg by mouth two times a day. - calcium carbonate/vitamin d3(CALCIUM 600 WITH VITAMIN D3 600 MG (1,500 MG)-400 UNIT CAP) Take 1 tablet by mouth once daily. Facility-Administered Medications as of 11/06/2023 - iv contrast (radiology procedure) - morphine 4 mg injection - ondansetron (PF) 4 mg injection (ZOFRAN) - NaCl 0.9% 1,000 mL iv bolus Problem List As Of Date 11/06/2023 Noted Resolved OSTEOARTHROS NOS-ANKLE [M19.079] 12/20/2005 Personal History of Malignant Melanoma of Skin *04/28/2009 Rectal cancer (HCC) [C20] 06/14/2023 Iron deficiency anemia, unspecified [D50.9] 07/06/2023 Atrial fibrillation (HCC) [I48.91] 08/09/2023 Essential hypertension [I10] 04/25/2017 GERD (gastroesophageal reflux disease) [K21.9] 08/09/2023 Hemorrhoids [K64.9] 08/09/2023 Hyperlipidemia [E78.5] 08/09/2023 Mixed anxiety depressive disorder [F41.8] 08/09/2023 Rectal adenocarcinoma (HCC) [C20] 08/25/2023 Ileostomy present (HCC) [Z93.2] 08/26/2023 Encounter for ostomy care education [Z71.89] 08/26/2023 08/29/2023 Small bowel obstruction (HCC) [K56.609] 08/31/2023 09/04/2023 Ileostomy bag changed (HCC) [Z43.2] 08/31/2023 Encounter Status:Closed by CIERRA LINDQUIST on 11/06/23 Normal [facility] CT ABD/PEL W IVCONon 024 CT ABD/PEL W IVCON Normal [facility] Comprehensive metabolic 2000 panelon 11-06-2023 Albumin [Mass/Vol] 4.7 g/dL Normal 3.9-4.9 [facility] Comment on above: Order Comment: Speci men Type: BLOOD SPECIMENOrdering Facility: [facility] Address: [address] [place] [address] Performed By: #### 2 4323-8, 3039-09, ####[facility] LABORATORYCLIA [id number] [place] [address] [place] ALP [Catalytic activity/Vol] 100 U/L Normal 34-123 [facility] Comment on above: Order Comment: Speci men Type: BLOOD SPECIMENOrdering Facility: [facility] Address: [address] [place] [address] Performed By: #### 2 4323-8, 3039-09, ####[facility] LABORATORYCLIA [id number] [place] [address] [place] ALT [Catalytic activity/Vol] 32 U/L Normal 7-38 [facility] Comment on above: Order Comment: Speci men Type: BLOOD SPECIMENOrdering Facility: [facility] Address: [address] [place] [address] Performed By: #### 2 4323-8, 3040-3, ####[facility] LABORATORYCLIA [id number] [place] [address] [place] Anion gap [Moles/Vol] 16 mmol/L Normal 9-18 [facility] Comment on above: Order Comment: Speci men Type: BLOOD SPECIMENOrdering Facility: [facility] Address: [address] [place] [address] Performed By: #### 2 4323-8, 0-3, ####[facility] LABORATORYCLIA [id number] [place] [id number] [place] AST [Catalytic activity/Vol] 39 U/L High 13-35 [facility] Comment on above: Order Comment: Speci men Type: BLOOD SPECIMENOrdering Facility: [facility] Address: [address] [place] [address] Performed By: #### 2 4323-8, 3, ####[facility] LABORATORYCLIA [id number] [place] [id number] [place] Bilirubin [Mass/Vol] 0.8 mg/dL Normal 0.2-1.3 [facility] Comment on above: Order Comment: Speci men Type: BLOOD SPECIMENOrdering Facility: [facility] Address: [address] [place] [address] Performed By: #### 2 4323-8, 03, ####[facility] LABORATORYCLIA [id number] [place] [id number] [place] Calcium [Mass/Vol] 10.0 mg/dL Normal 8.5-10.2 [facility] Comment on above: Order Comment: Speci men Type: BLOOD SPECIMENOrdering Facility: [facility] Address: [facility] [place] [address] Performed By: #### 2 4323-8, 3040-3, ####[facility] LABORATORYCLIA [id number] [place] [address] [place] Chloride [Moles/Vol] 99 mmol/L Normal 97-105 [facility] Comment on above: Order Comment: Speci men Type: BLOOD SPECIMENOrdering Facility: [facility] Address: [address] [place] [id number] Performed By: #### 2 4323-8, 3040-3, ####[facility] LABORATORYCLIA [id number] [place] [address] [place] CO2 [Moles/Vol] 20 mmol/L Low 22-30 [facility] Comment on above: Order Comment: Speci men Type: BLOOD SPECIMENOrdering Facility: [facility] Address: [address] [place] [address] Performed By: #### 2 4323-8, 3, ####[facility] LABORATORYCLIA [id number] [place] [address] [place] Creatinine [Mass/Vol] 0.84 mg/dL Normal 0.58-0.96 [facility] Comment on above: Order Comment: Speci men Type: BLOOD SPECIMENOrdering Facility: [facility] Address: [address] [place] [address] Performed By: #### 2 4323-8, 3, ####[facility] LABORATORYCLIA [id number] [place] [id number] [place] Creatinine and Glomerular filtration rate.predicted panel (S/P/Bld) 75 mL/min/1.73m??? Normal >=60 [facility] Comment on above: Order Comment: Speci men Type: BLOOD SPECIMENOrdering Facility: [facility] Address: [address] [place], [place] [id number] Result Comment: Farhana mated Glomerular Filtration Rate [...] actual GFR. Performed By: #### 2 4323-8, 3040-3, ####[facility] LABORATORYCLIA [id number] [place] [address] [place] Glucose [Mass/Vol] 107 mg/dL High 74-99 [facility] Comment on above: Order Comment: Speci men Type: BLOOD SPECIMENOrdering Facility: [facility] Address: [address] [place] [address] Result Comment: The [place] [employer] (ADA) provides guidance for cutoff [...] Standards of Medical Care in Diabetes 2016, [place] [employer]. Diabetes Care. 2016.39(Suppl 1). Performed By: #### 2 4323-8, 0-3, ####[facility] LABORATORYCLIA [id number] [place] [id number] [place] Potassium [Moles/Vol] 4.0 mmol/L Normal 3.7-5.1 [facility] Comment on above: Order Comment: Speci men Type: BLOOD SPECIMENOrdering Facility: [facility] Address: [address] [place] [address] Performed By: #### 2 4323-8, 0-3, ####[facility] LABORATORYCLIA [id number] [place] [address] [place] Protein [Mass/Vol] 7.6 g/dL Normal 6.3-8.0 [facility] Comment on above: Order Comment: Speci men Type: BLOOD SPECIMENOrdering Facility: [facility] Address: [address] [place], [place] [address] Performed By: #### 2 4323-8, 3040-3, ####[facility] LABORATORYCLIA [id number] [place] [address] [place] Sodium [Moles/Vol] 135 mmol/L Low 136-144 [facility] Comment on above: Order Comment: Speci men Type: BLOOD SPECIMENOrdering Facility: [facility] Address: [address] [place] [address] Performed By: #### 2 4323-8, 0-3, ####[facility] LABORATORYCLIA [id number] [place] [id number] [place] Urea nitrogen [Mass/Vol] 18 mg/dL Normal 7-21 [facility] Comment on above: Order Comment: Speci men Type: BLOOD SPECIMENOrdering Facility: [facility] Address: [address] [place] [address] Performed By: #### 2 4323-8, 3, ####[facility] LABORATORYCLIA [id number] [place] [id number] [place] ED PROV NOTEon 11-06-2023 ED PROV NOTE Normal [facility] ED Triage Noteon 11-06-2023 ED Triage Note Normal [facility] HISTORY PHYSICALon 4 HISTORY PHYSICAL Normal [facility] Lipase SerPl-cCncon 11-06-19 24 Lipase [Catalytic activity/Vol] 9 U/L Low 16-61 [facility] Comment on above: Order Comment: Speci men Type: BLOOD SPECIMENOrdering Facility: [facility] Address: [address] [place] [address] Performed By: #### 2 4323-8, 0-3, ####[facility] LABORATORYCLIA [id number] [place] [id number] [place] Magnesium SerPl-mCncon 11-05 Magnesium [Mass/Vol] 1.4 mg/dL Low 1.7-2.3 [facility] Comment on above: Order Comment: Speci men Type: BLOOD SPECIMENOrdering Facility: [facility] Address: [address] [place] [address] Performed By: #### 2 4323-8, 3040-3, 47912-1 ####[facility] LABORATORYCLIA [id number] [place] [id number] [place] NURSING PROGon 11-06-2023 NURSING PROG Normal [facility] PT panel Coag (PPP)on 2023 INR Coag (PPP) [Relative time] 0.9 {INR} Normal 0.9-1.3 [facility] Comment on above: Order Comment: Speci men Type: BLOOD SPECIMENOrdering Facility: [facility] Address: [address] [place] [address] Result Comment: Ria min K Antagonist (VKA) Therapeutic Range: INR 2 to 3 (Target INR of 2.5)Note: For patients treated with VKA drugs, such as warfarin, the [employer] 2012 Guideline recommends [...] 2.5 to 3.5 (target INR of 3).Angel GH, et al. Chest 2012, 141:7S-47SNishpramod RA, et al. [facility] 2017, 70: 252-289 Performed By: #### 3 4528-0, 62252-6 ####[facility] LABORATORYCLIA [id number] [place] [id number] [place] PT Coag (PPP) [Time] 10.6 s Normal 9.7-13.0 [facility] Comment on above: Order Comment: Speci men Type: BLOOD SPECIMENOrdering Facility: [facility] Address: [address] [place] [address] Performed By: #### 3 4528-0, 78310-7 ####[facility] LABORATORYCLIA [id number] [place] [address] [facility] [place] TYPE + SCREENon 11-06-2023 ABO O Normal [facility] Comment on above: Order Comment: Speci men Type: BLOOD SPECIMENOrdering Facility: [facility] Address: [address] [place] [address] Performed By: #### T SCR ####[facility] BLOOD BANKCLIA [id number] [place] [id number] [facility] HISTORICAL AB SCR STATUS Negative [facility] Comment on above: Order Comment: Speci men Type: BLOOD SPECIMENOrdering Facility: [facility] Address: [address] [place] [address] Performed By: #### T SCR ####[facility] BLOOD BANKCLIA [id number] [address] Rh Nom (Bld) Negative [facility] Comment on above: Order Comment: Speci men Type: BLOOD SPECIMENOrdering Facility: [facility] Address: [address] [place] [address] Performed By: #### T SCR ####[facility] BLOOD BANKCLIA [id number] [place] [address] [place] [facility] TYPE AND SCREEN EXPIRATION 11/09/2023 23:59 Normal [facility] Comment on above: Order Comment: Speci men Type: BLOOD SPECIMENOrdering Facility: [facility] Address: [address] [place] [address] Performed By: #### T SCR ####[facility] BLOOD BANKCLIA [id number] [address] [place] Urinalysis complete panel (U )on 11-06-2023 Bilirubin Ql (U) Negative Normal Negative [facility] Comment on above: Order Comment: Speci men Type: URINE SPECIMENOrdering Facility: [facility] Address: [address] [place] [address] Performed By: #### 2 4356-8 ####[facility] LABORATORYCLIA [id number] [address] [place] Clarity (Unsp spec) Clear Normal Clear [facility] Comment on above: Order Comment: Speci men Type: URINE SPECIMENOrdering Facility: [facility] Address: [address] [place] [address] Performed By: #### 2 4356-8 ####[facility] LABORATORYCLIA [id number] [place] [address] [place] Color (U) Light Yellow Normal Yellow [facility] Comment on above: Order Comment: Speci men Type: URINE SPECIMENOrdering Facility: [facility] Address: [address] [place] [address] Performed By: #### 2 4356-8 ####[facility] LABORATORYCLIA [id number] [address] [place] Epithelial cells LM.HPF (Urine sed) [#/Area] Few Normal [facility] Comment on above: Order Comment: Speci men Type: URINE SPECIMENOrdering Facility: [facility] Address: [address] [place] [address] Performed By: #### 2 4356-8 ####[facility] LABORATORYCLIA [id number] [place] [address] [place] Glucose Test strip (U) [Mass/Vol] Negative Normal Trace, Negative [facility] Comment on above: Order Comment: Speci men Type: URINE SPECIMENOrdering Facility: [facility] Address: [address] [place] [address] Performed By: #### 2 4356-8 ####[facility] LABORATORYCLIA [id number] [place] [address] [place] Hemoglobin Ql (U) 1+ Abnormal Negative, Trace [facility] Comment on above: Order Comment: Speci men Type: URINE SPECIMENOrdering Facility: [facility] Address: [address] [place] [address] Performed By: #### 2 4356-8 ####[facility] LABORATORYCLIA [id number] [address] [place] Ketones Ql (U) Negative Normal Negative, Trace [facility] Comment on above: Order Comment: Speci men Type: URINE SPECIMENOrdering Facility: [facility] Address: [address] [place] [address] Performed By: #### 2 4356-8 ####[facility] LABORATORYCLIA [id number] [address] [place] Leukocyte esterase Test strip Ql (U) Negative Normal Negative, 25 Melody/uL [facility] Comment on above: Order Comment: Speci men Type: URINE SPECIMENOrdering Facility: [facility] Address: [address] [place] [address] Performed By: #### 2 4356-8 ####[facility] LABORATORYCLIA [id number] [place] [address] [place] Nitrite Ql (U) Negative Normal Negative [facility] Comment on above: Order Comment: Speci men Type: URINE SPECIMENOrdering Facility: [facility] Address: [address] [place] [address] Performed By: #### 2 4356-8 ####[facility] LABORATORYCLIA [id number] [place] [address] [place] pH (U) 6.5 [pH] Normal 5.0-8.0 [facility] Comment on above: Order Comment: Speci men Type: URINE SPECIMENOrdering Facility: [facility] Address: [address] [place] [address] Performed By: #### 2 4356-8 ####[facility] LABORATORYCLIA [id number] [place] [address] [place] Protein (U) [Mass/Vol] Trace Normal Trace , Negative [facility] Comment on above: Order Comment: Speci men Type: URINE SPECIMENOrdering Facility: [facility] Address: [address] [place] [address] Performed By: #### 2 4356-8 ####[facility] LABORATORYCLIA [id number] [place] [address] [place] RBC LM.HPF (Urine sed) [#/Area] 0-3 /HPF Normal 0-3 /HPF [facility] Comment on above: Order Comment: Speci men Type: URINE SPECIMENOrdering Facility: [facility] Address: [address] [place] [address] Performed By: #### 2 4356-8 ####POR[facility] LABORATORYCLIA [id number] [place] [id number] [place] Specific gravity (U) [Rel density] >1.050 High 1.005-1.03 0 [facility] Comment on above: Order Comment: Speci men Type: URINE SPECIMENOrdering Facility: [facility] Address: [address] [place] [address] Performed By: #### 2 4356-8 ####POR[facility] LABORATORYCLIA [id number] [place] [id number] [place] Urobilinogen Ql (U) Normal Normal Normal [facility] Comment on above: Order Comment: Speci men Type: URINE SPECIMENOrdering Facility: [facility] Address: [address] [place] [address] Performed By: #### 2 4356-8 ####POR[facility] LABORATORYCLIA [id number] [place] [address] [place] [facility] WBC LM.HPF (Urine sed) [#/Area] 0-5 /HPF Normal 0-5 /HPF [facility] Comment on above: Order Comment: Speci men Type: URINE SPECIMENOrdering Facility: [facility] Address: [address] [place] [address] Performed By: #### 2 4356-8 ####POR[facility] LABORATORYCLIA [id number] [place] [id number] [place] aPTT PPPon 11-06-2023 aPTT Coag (PPP) [Time] 25.4 s Normal 23.0-32.4 [facility] Comment on above: Order Comment: Speci men Type: BLOOD SPECIMENOrdering Facility: [facility] Address: [address] [place] [address] Performed By: #### 3 4528-0, 72526-4 ####POR[facility] LABORATORYCLIA [id number] [place] [address] [place] Automated basophil %Ordered By: Ion Eckert on 10-28-2023 Basophils/100 WBC (Bld) 0.6 % Normal . [facility] Comment on above: Performed By: #### C BC, BMP, BNP, HS TROP, PTT, PT, HEPATIC, LACTIC, CK, DDIMER #### [address] Automated basophil countOrde red By: Ion Eckert on 10-28-2023 Basophils (Bld) [#/Vol] 0.0 10*3/uL Normal 0.0-0.2 [facility] Comment on above: Result Comment: PERF ORMED BY: [place] [address] PATHOLOGIST SOCIAL WORK INSTRUCTOR LYUDMILA GIANG M.D. Performed By: #### C BC, BMP, BNP, HS TROP, PTT, PT, HEPATIC, LACTIC, CK, DDIMER #### [address] Automated blood monocyte cou ntOrdered By: Ion Eckert on 10-28-2023 Monocytes (Bld) [#/Vol] 0.7 10*3/uL Normal 0.0-0.8 [facility] Comment on above: Performed By: #### C BC, BMP, BNP, HS TROP, PTT, PT, HEPATIC, LACTIC, CK, DDIMER #### [address] Automated eosinophil %Ordere d By: Ion Eckert on 10-28-2023 Eosinophils/100 WBC (Bld) 7.1 % Normal . [facility] Comment on above: Performed By: #### C BC, BMP, BNP, HS TROP, PTT, PT, HEPATIC, LACTIC, CK, DDIMER #### [address] Automated eosinophil countOr dered By: Ion Eckert on 10-28-2023 Eosinophils (Bld) [#/Vol] 0.4 10*3/uL Normal 0.0-0.45 [facility] Comment on above: Performed By: #### C BC, BMP, BNP, HS TROP, PTT, PT, HEPATIC, LACTIC, CK, DDIMER #### [facility] [address] Automated monocyte %Ordered By: Ino Eckert on 10-28-2023 Monocytes/100 WBC (Bld) 11.9 % Normal . [facility] Comment on above: Performed By: #### C BC, BMP, BNP, HS TROP, PTT, PT, HEPATIC, LACTIC, CK, DDIMER #### [facility] [address] Automated neutrophil %Ordere d By: Ion Eckert on 10-28-2023 Neutrophils/100 WBC (Bld) 66.8 % Normal . [facility] Comment on above: Performed By: #### C BC, BMP, BNP, HS TROP, PTT, PT, HEPATIC, LACTIC, CK, DDIMER #### [address] Carbon dioxide, total [Moles /volume] in Serum or PlasmaOrdered By: Ion Eckert on 10-28-2023 CO2 [Moles/Vol] 31.8 mmol/L High 21.0-31.0 [facility] Comment on above: Performed By: #### C BC, BMP, BNP, HS TROP, PTT, PT, HEPATIC, LACTIC, CK, DDIMER #### [address] Chloride [Moles/volume] in S jeevan or PlasmaOrdered By: Ion Eckert on 10-28-2023 Chloride [Moles/Vol] 104 mmol/L Normal 98-107 [facility] Comment on above: Performed By: #### C BC, BMP, BNP, HS TROP, PTT, PT, HEPATIC, LACTIC, CK, DDIMER #### [address] Complete Blood Count Auto Di ffon 10-28-2023 Mean Corpuscular HGB Conc 33.2 g/dL Normal 32.0-35.0 [facility] Comment on above: Performed By: #### C BC, BMP, BNP, HS TROP, PTT, PT, HEPATIC, LACTIC, CK, DDIMER #### [address] NRBC% 0.1 /100{WBC} Normal 0-0.5 [facility] Comment on above: Performed By: #### C BC, BMP, BNP, HS TROP, PTT, PT, HEPATIC, LACTIC, CK, DDIMER #### [address] Creatinineon 10-28-2023 Creatinine Clr Calc Pharmacy 61.83 Normal [facility] Comment on above: Result Comment: PERF ORMED BY: [place] [address] PATHOLOGIST SOCIAL WORK INSTRUCTOR LYUDMILA GIANG M.D. Performed By: #### C BC, BMP, BNP, HS TROP, PTT, PT, HEPATIC, LACTIC, CK, DDIMER #### [address] GFR/1.73 sq M.predicted MDRD (S/P/Bld) [Vol rate/Area] mL/min/{1.73_m2} Normal [facility] Comment on above: Performed By: #### C BC, BMP, BNP, HS TROP, PTT, PT, HEPATIC, LACTIC, CK, DDIMER #### [address] Creatinine [Mass/volume] in Serum or PlasmaOrdered By: Ion Eckert on 10-28-2023 Creatinine [Mass/Vol] 0.60 mg/dL Normal 0.60-1.20 [facility] Comment on above: Performed By: #### C BC, BMP, BNP, HS TROP, PTT, PT, HEPATIC, LACTIC, CK, DDIMER #### [address] Erythrocyte distribution wid th [Ratio] by Automated countOrdered By: Ion Eckert on 10-28-2023 Erythrocyte distribution width (RBC) [Ratio] 14.9 % Normal 11.9-15.3 [facility] Comment on above: Performed By: #### C BC, BMP, BNP, HS TROP, PTT, PT, HEPATIC, LACTIC, CK, DDIMER #### [place] [id number] [place] Erythrocytes [#/volume] in B lood by Automated countOrdered By: Ion Eckert on 10-28-2023 RBC (Bld) [#/Vol] 3.56 10*6/uL Low 3.60-5.00 [facility] Comment on above: Performed By: #### C BC, BMP, BNP, HS TROP, PTT, PT, HEPATIC, LACTIC, CK, DDIMER #### [address] Hematocrit [Volume Fraction] of Blood by Automated countOrdered By: Ion Eckert on 10-28-2023 Hematocrit (Bld) [Volume fraction] 31.9 % Low 34.0-46.4 [facility] Comment on above: Performed By: #### C BC, BMP, BNP, HS TROP, PTT, PT, HEPATIC, LACTIC, CK, DDIMER #### [address] Hemoglobin [Mass/volume] in BloodOrdered By: Ion Eckert on 10-28-2023 Hemoglobin (Bld) [Mass/Vol] 10.6 g/dL Low 11.8-15.4 [facility] Comment on above: Performed By: #### C BC, BMP, BNP, HS TROP, PTT, PT, HEPATIC, LACTIC, CK, DDIMER #### [address] Leukocytes [#/volume] correc french for nucleated erythrocytes in Blood by Automated counOrdered By: Ion Eckert on 10-28-2023 WBC corrected for nucl RBC Auto (Bld) [#/Vol] 5.6 10*3/uL 3.8-11.6 [facility] Leukocytes [#/volume] in Blo od by Automated countOrdered By: Ion Eckert on 10-28-2023 WBC (Bld) [#/Vol] 5.6 10*3/uL Normal 3.8-11.6 [facility] Comment on above: Performed By: #### C BC, BMP, BNP, HS TROP, PTT, PT, HEPATIC, LACTIC, CK, DDIMER #### [address] [place] [address] [place] Lymphocytes [#/volume] in Bl ood by Automated countOrdered By: Ion Eckert on 10-28-2023 Lymphocytes (Bld) [#/Vol] 0.8 10*3/uL Low 1.00-4.8 [facility] Comment on above: Performed By: #### C BC, BMP, BNP, HS TROP, PTT, PT, HEPATIC, LACTIC, CK, DDIMER #### [facility] [address] Lymphocytes/100 leukocytes i n Blood by Automated countOrdered By: Ion Eckert on 10-28-2023 Lymphocytes/100 WBC (Bld) 13.6 % Normal . [facility] Comment on above: Performed By: #### C BC, BMP, BNP, HS TROP, PTT, PT, HEPATIC, LACTIC, CK, DDIMER #### [address] MCH [Entitic mass] by Automa french countOrdered By: Ion Eckert on 10-28-2023 MCH (RBC) [Entitic mass] 29.7 pg Normal 24.7-34.3 [facility] Comment on above: Performed By: #### C BC, BMP, BNP, HS TROP, PTT, PT, HEPATIC, LACTIC, CK, DDIMER #### [address] MCHC Auto (RBC) [Mass/Vol]Or dered By: Ion Eckert on 10-28-2023 MCHC (RBC) [Mass/Vol] 33.2 g/dL 32.0-35.0 [facility] MCV [Entitic volume] by Auto mated countOrdered By: Ion Eckert on 10-28-2023 MCV (RBC) [Entitic vol] 89.6 fL Normal 80-100 [facility] Comment on above: Performed By: #### C BC, BMP, BNP, HS TROP, PTT, PT, HEPATIC, LACTIC, CK, DDIMER #### [address] Neutrophils [#/volume] in Bl ood by Automated countOrdered By: Ion Eckert on 10-28-2023 Neutrophils (Bld) [#/Vol] 3.8 10*3/uL Normal 1.8-7.7 [facility] Comment on above: Performed By: #### C BC, BMP, BNP, HS TROP, PTT, PT, HEPATIC, LACTIC, CK, DDIMER #### [facility] [address] No Panel InformationOrdered By: Ion Eckert on 10-28-2023 Estimated GFR (CKD-EPI) > 60.0 mL/Min [facility] Creatinine Clearance (Chem 61.83 [facility] Nucleated erythrocytes [Pres ence] in Blood by Automated countOrdered By: Ion Eckert on 10-28-2023 Nucleated RBC Auto Ql (Bld) 0.1 /100{WBC} 0-0.5 [facility] Platelet mean volume [Entiti c volume] in Blood by Automated countOrdered By: Ion Eckert on 10-28-2023 Platelet mean volume (Bld) [Entitic vol] 6.4 fL Normal 6.3-10.7 [facility] Comment on above: Performed By: #### C BC, BMP, BNP, HS TROP, PTT, PT, HEPATIC, LACTIC, CK, DDIMER #### [facility] [address] Platelets [#/volume] in Bloo d by Automated countOrdered By: Ion Eckert on 10-28-2023 Platelets (Bld) [#/Vol] 294 10*3/uL Normal 150-450 [facility] Comment on above: Performed By: #### C BC, BMP, BNP, HS TROP, PTT, PT, HEPATIC, LACTIC, CK, DDIMER #### [facility] [address] [place] [address] [place] Potassium [Moles/volume] in Serum or PlasmaOrdered By: Ion Eckert on 10-28-2023 Potassium [Moles/Vol] 3.9 mmol/L Normal 3.5-5.1 [facility] Comment on above: Performed By: #### C BC, BMP, BNP, HS TROP, PTT, PT, HEPATIC, LACTIC, CK, DDIMER #### [facility] [address] Serum or plasma anion gap de terminationOrdered By: Ion Eckert on 10-28-2023 Anion gap [Moles/Vol] 9.1 mmol/L Normal 6.0-15.0 [facility] Comment on above: Performed By: #### C BC, BMP, BNP, HS TROP, PTT, PT, HEPATIC, LACTIC, CK, DDIMER #### [facility] [address] Sodium [Moles/volume] in Ser um or PlasmaOrdered By: Ion Eckert on 10-28-2023 Sodium [Moles/Vol] 141 mmol/L Normal 136-145 [facility] Comment on above: Performed By: #### C BC, BMP, BNP, HS TROP, PTT, PT, HEPATIC, LACTIC, CK, DDIMER #### [facility] [address] Urea nitrogen [Mass/volume] in Serum or PlasmaOrdered By: Ion Eckret on 10-28-2023 Urea nitrogen [Mass/Vol] 11 mg/dL Normal 7-25 [facility] Comment on above: Performed By: #### C BC, BMP, BNP, HS TROP, PTT, PT, HEPATIC, LACTIC, CK, DDIMER #### [facility] [address] Blood Urea Nitrogenon 2023 Urea nitrogen [Mass/Vol] 23 mg/dL Normal 7-25 [facility] Comment on above: Performed By: #### C BC, BMP, BNP, HS TROP, PTT, PT, HEPATIC, LACTIC, CK, DDIMER #### [facility] [address] Capillary blood glucose yogi urement by glucometer (mass/volume)Ordered By: Jm Trujillo on 10-27-2023 Glucose [Mass/Vol] 71 mg/dL Normal [facility] Comment on above: Random Glucose Refer ence Range is dependent on time and content of last meal. Glucose of more than 200 mg/dL in a nonstressed, ambulatory subject supports the diagnosis of Diabetes Mellitus. Result Comment: [facility] Glucose Reference Range is dependent on time and content of last meal. Glucose of more than 200 mg/dL in a nonstressed, ambulatory subject supports the diagnosis of Diabetes Mellitus. PERFORMED BY: [place] [address] PATHOLOGIST SOCIAL WORK INSTRUCTOR LYUDMILA GIANG M.D. Performed By: #### C BC, BMP, BNP, HS TROP, PTT, PT, HEPATIC, LACTIC, CK, DDIMER #### [address] Complete Blood Count Auto Di ffon 10-27-2023 Basophils (Bld) [#/Vol] 0.0 10*3/uL Normal 0.0-0.2 [facility] Comment on above: Result Comment: PERF ORMED BY: [place] [address] PATHOLOGIST SOCIAL WORK INSTRUCTOR LYUDMILA GIANG M.D. Performed By: #### C BC, BMP, BNP, HS TROP, PTT, PT, HEPATIC, LACTIC, CK, DDIMER #### [address] Basophils/100 WBC (Bld) 0.4 % Normal . [facility] Comment on above: Performed By: #### C BC, BMP, BNP, HS TROP, PTT, PT, HEPATIC, LACTIC, CK, DDIMER #### [address] Eosinophils (Bld) [#/Vol] 0.4 10*3/uL Normal 0.0-0.45 [facility] Comment on above: Performed By: #### C BC, BMP, BNP, HS TROP, PTT, PT, HEPATIC, LACTIC, CK, DDIMER #### [address] Eosinophils/100 WBC (Bld) 5.6 % Normal . [facility] Comment on above: Performed By: #### C BC, BMP, BNP, HS TROP, PTT, PT, HEPATIC, LACTIC, CK, DDIMER #### [address] Erythrocyte distribution width (RBC) [Ratio] 15.3 % Normal 11.9-15.3 [facility] Comment on above: Performed By: #### C BC, BMP, BNP, HS TROP, PTT, PT, HEPATIC, LACTIC, CK, DDIMER #### [address] Hematocrit (Bld) [Volume fraction] 34.0 % Normal 34.0-46.4 [facility] Comment on above: Performed By: #### C BC, BMP, BNP, HS TROP, PTT, PT, HEPATIC, LACTIC, CK, DDIMER #### [address] Hemoglobin (Bld) [Mass/Vol] 11.4 g/dL Low 11.8-15.4 [facility] Comment on above: Performed By: #### C BC, BMP, BNP, HS TROP, PTT, PT, HEPATIC, LACTIC, CK, DDIMER #### [address] Lymphocytes (Bld) [#/Vol] 0.8 10*3/uL Low 1.00-4.8 [facility] Comment on above: Performed By: #### C BC, BMP, BNP, HS TROP, PTT, PT, HEPATIC, LACTIC, CK, DDIMER #### [address] Lymphocytes/100 WBC (Bld) 10.5 % Normal . [facility] Comment on above: Performed By: #### C BC, BMP, BNP, HS TROP, PTT, PT, HEPATIC, LACTIC, CK, DDIMER #### [address] MCH (RBC) [Entitic mass] 29.9 pg Normal 24.7-34.3 [facility] Comment on above: Performed By: #### C BC, BMP, BNP, HS TROP, PTT, PT, HEPATIC, LACTIC, CK, DDIMER #### [address] MCV (RBC) [Entitic vol] 89.6 fL Normal 80-100 [facility] Comment on above: Performed By: #### C BC, BMP, BNP, HS TROP, PTT, PT, HEPATIC, LACTIC, CK, DDIMER #### [address] Mean Corpuscular HGB Conc 33.4 g/dL Normal 32.0-35.0 [facility] Comment on above: Performed By: #### C BC, BMP, BNP, HS TROP, PTT, PT, HEPATIC, LACTIC, CK, DDIMER #### [address] Monocytes (Bld) [#/Vol] 0.9 10*3/uL High 0.0-0.8 [facility] Comment on above: Performed By: #### C BC, BMP, BNP, HS TROP, PTT, PT, HEPATIC, LACTIC, CK, DDIMER #### [address] Monocytes/100 WBC (Bld) 11.5 % Normal . [facility] Comment on above: Performed By: #### C BC, BMP, BNP, HS TROP, PTT, PT, HEPATIC, LACTIC, CK, DDIMER #### [address] Neutrophils (Bld) [#/Vol] 5.7 10*3/uL Normal 1.8-7.7 [facility] Comment on above: Performed By: #### C BC, BMP, BNP, HS TROP, PTT, PT, HEPATIC, LACTIC, CK, DDIMER #### [address] Neutrophils/100 WBC (Bld) 72.0 % Normal . [facility] Comment on above: Performed By: #### C BC, BMP, BNP, HS TROP, PTT, PT, HEPATIC, LACTIC, CK, DDIMER #### [address] NRBC% 0.0 /100{WBC} Normal 0-0.5 [facility] Comment on above: Performed By: #### C BC, BMP, BNP, HS TROP, PTT, PT, HEPATIC, LACTIC, CK, DDIMER #### [facility] [address] Platelet mean volume (Bld) [Entitic vol] 6.5 fL Normal 6.3-10.7 [facility] Comment on above: Performed By: #### C BC, BMP, BNP, HS TROP, PTT, PT, HEPATIC, LACTIC, CK, DDIMER #### [facility] [address] Platelets (Bld) [#/Vol] 304 10*3/uL Normal 150-450 [facility] Comment on above: Performed By: #### C BC, BMP, BNP, HS TROP, PTT, PT, HEPATIC, LACTIC, CK, DDIMER #### [address] RBC (Bld) [#/Vol] 3.80 10*6/uL Normal 3.60-5.00 [facility] Comment on above: Performed By: #### C BC, BMP, BNP, HS TROP, PTT, PT, HEPATIC, LACTIC, CK, DDIMER #### [address] WBC (Bld) [#/Vol] 7.9 10*3/uL Normal 3.8-11.6 [facility] Comment on above: Performed By: #### C BC, BMP, BNP, HS TROP, PTT, PT, HEPATIC, LACTIC, CK, DDIMER #### [address] Creatinineon 10-27-2023 Creatinine [Mass/Vol] 0.65 mg/dL Normal 0.60-1.20 [facility] Comment on above: Performed By: #### C BC, BMP, BNP, HS TROP, PTT, PT, HEPATIC, LACTIC, CK, DDIMER #### [address] Creatinine Clr Calc Pharmacy 56.50 Normal [facility] Comment on above: Result Comment: PERF ORMED BY: [place] [address] PATHOLOGIST SOCIAL WORK INSTRUCTOR LYUDMILA GIANG M.D. Performed By: #### C BC, BMP, BNP, HS TROP, PTT, PT, HEPATIC, LACTIC, CK, DDIMER #### [address] GFR/1.73 sq M.predicted MDRD (S/P/Bld) [Vol rate/Area] mL/min/{1.73_m2} Normal [facility] Comment on above: Performed By: #### C BC, BMP, BNP, HS TROP, PTT, PT, HEPATIC, LACTIC, CK, DDIMER #### [address] Electrolyteson 10-27-2023 Anion gap [Moles/Vol] 14.6 mmol/L Normal 6.0-15.0 [facility] Comment on above: Performed By: #### C BC, BMP, BNP, HS TROP, PTT, PT, HEPATIC, LACTIC, CK, DDIMER #### [address] Chloride [Moles/Vol] 102 mmol/L Normal 98-107 [facility] Comment on above: Performed By: #### C BC, BMP, BNP, HS TROP, PTT, PT, HEPATIC, LACTIC, CK, DDIMER #### [address] CO2 [Moles/Vol] 27.1 mmol/L Normal 21.0-31.0 [facility] Comment on above: Performed By: #### C BC, BMP, BNP, HS TROP, PTT, PT, HEPATIC, LACTIC, CK, DDIMER #### [address] Potassium [Moles/Vol] 3.7 mmol/L Normal 3.5-5.1 [facility] Comment on above: Performed By: #### C BC, BMP, BNP, HS TROP, PTT, PT, HEPATIC, LACTIC, CK, DDIMER #### [address] Sodium [Moles/Vol] 140 mmol/L Normal 136-145 [facility] Comment on above: Performed By: #### C BC, BMP, BNP, HS TROP, PTT, PT, HEPATIC, LACTIC, CK, DDIMER #### [facility] [address] Basic Metabolic Panelon 10-08 Anion gap [Moles/Vol] 11.4 mmol/L Normal 6.0-15.0 [facility] Comment on above: Performed By: #### C BC, BMP, BNP, HS TROP, PTT, PT, HEPATIC, LACTIC, CK, DDIMER #### [address] Chloride [Moles/Vol] 102 mmol/L Normal 98-107 [facility] Comment on above: Performed By: #### C BC, BMP, BNP, HS TROP, PTT, PT, HEPATIC, LACTIC, CK, DDIMER #### [address] CO2 [Moles/Vol] 29.4 mmol/L Normal 21.0-31.0 [facility] Comment on above: Performed By: #### C BC, BMP, BNP, HS TROP, PTT, PT, HEPATIC, LACTIC, CK, DDIMER #### [address] Creatinine [Mass/Vol] 0.85 mg/dL Normal 0.60-1.20 [facility] Comment on above: Performed By: #### C BC, BMP, BNP, HS TROP, PTT, PT, HEPATIC, LACTIC, CK, DDIMER #### [address] Creatinine Clr Calc Pharmacy 53.18 Normal [facility] Comment on above: Performed By: #### C BC, BMP, BNP, HS TROP, PTT, PT, HEPATIC, LACTIC, CK, DDIMER #### [address] GFR/1.73 sq M.predicted MDRD (S/P/Bld) [Vol rate/Area] mL/min/{1.73_m2} Normal [facility] Comment on above: Performed By: #### C BC, BMP, BNP, HS TROP, PTT, PT, HEPATIC, LACTIC, CK, DDIMER #### [address] Potassium [Moles/Vol] 4.8 mmol/L Normal 3.5-5.1 [facility] Comment on above: Performed By: #### C BC, BMP, BNP, HS TROP, PTT, PT, HEPATIC, LACTIC, CK, DDIMER #### [facility] [address] Sodium [Moles/Vol] 138 mmol/L Normal 136-145 [facility] Comment on above: Performed By: #### C BC, BMP, BNP, HS TROP, PTT, PT, HEPATIC, LACTIC, CK, DDIMER #### [address] Urea nitrogen [Mass/Vol] 19 mg/dL Normal 7-25 [facility] Comment on above: Performed By: #### C BC, BMP, BNP, HS TROP, PTT, PT, HEPATIC, LACTIC, CK, DDIMER #### [address] angio chest PE protocolon 10-26-2023 CT angio chest PE protocol [facility] Main [address] [place] [address] CT Scan Report Signed Patient: Evan Gill MR#: [id number] [birth year] : 1955 Acct:[id number] Age/Sex: 68 / F ADM Date: 10/26/23 Loc: Room: [address] [place] [address] Type: ADM IN Attending Dr: Patrice Hooks MD Copies to: MD Mary Peng MD Ordering Provider: Mary Al MD Date of Service: 10/25/23 CT/CT abdomen pelvis w con: ileostomy, concern for sbo ([id number]) CT/CT angio chest PE protocol: tachy, elevated [...] Princess Sanchez M.D.10/26/2023 7:37 AM Dictation Location: [place] [address] Transcribed By: [facility] 10/26/23 0737 Dictated By: Princess Sanchez MD 10/26/23 0723 Signed By: 10/26/23 0737 Normal [facility] Calcium [Mass/volume] in Ser um or PlasmaOrdered By: Ethel Saucedo on 10-26-2023 Calcium [Mass/Vol] 9.3 mg/dL Normal 8.6-10.3 [facility] Comment on above: Performed By: #### C BC, BMP, BNP, HS TROP, PTT, PT, HEPATIC, LACTIC, CK, DDIMER #### [address] Complete Blood Count Auto Di ffon 10-26-2023 Basophils (Bld) [#/Vol] 0.1 10*3/uL Normal 0.0-0.2 [facility] Comment on above: Result Comment: PERF ORMED BY: [place] [address] PATHOLOGIST SOCIAL WORK INSTRUCTOR LYUDMILA GIANG M.D. Performed By: #### C BC, BMP, BNP, HS TROP, PTT, PT, HEPATIC, LACTIC, CK, DDIMER #### [facility] [address] [place] [address] [place] Basophils/100 WBC (Bld) 0.8 % Normal . [facility] Comment on above: Performed By: #### C BC, BMP, BNP, HS TROP, PTT, PT, HEPATIC, LACTIC, CK, DDIMER #### [facility] [address] [place] [address] [place] Eosinophils (Bld) [#/Vol] 0.1 10*3/uL Normal 0.0-0.45 [facility] Comment on above: Performed By: #### C BC, BMP, BNP, HS TROP, PTT, PT, HEPATIC, LACTIC, CK, DDIMER #### [address] Eosinophils/100 WBC (Bld) 0.9 % Normal . [facility] Comment on above: Performed By: #### C BC, BMP, BNP, HS TROP, PTT, PT, HEPATIC, LACTIC, CK, DDIMER #### [address] Erythrocyte distribution width (RBC) [Ratio] 15.7 % High 11.9-15.3 [facility] Comment on above: Performed By: #### C BC, BMP, BNP, HS TROP, PTT, PT, HEPATIC, LACTIC, CK, DDIMER #### [address] Hematocrit (Bld) [Volume fraction] 37.2 % Normal 34.0-46.4 [facility] Comment on above: Performed By: #### C BC, BMP, BNP, HS TROP, PTT, PT, HEPATIC, LACTIC, CK, DDIMER #### [address] Hemoglobin (Bld) [Mass/Vol] 12.6 g/dL Normal 11.8-15.4 [facility] Comment on above: Performed By: #### C BC, BMP, BNP, HS TROP, PTT, PT, HEPATIC, LACTIC, CK, DDIMER #### [address] Lymphocytes (Bld) [#/Vol] 0.9 10*3/uL Low 1.00-4.8 [facility] Comment on above: Performed By: #### C BC, BMP, BNP, HS TROP, PTT, PT, HEPATIC, LACTIC, CK, DDIMER #### [address] Lymphocytes/100 WBC (Bld) 8.5 % Normal . [facility] Comment on above: Performed By: #### C BC, BMP, BNP, HS TROP, PTT, PT, HEPATIC, LACTIC, CK, DDIMER #### [address] MCH (RBC) [Entitic mass] 30.1 pg Normal 24.7-34.3 [facility] Comment on above: Performed By: #### C BC, BMP, BNP, HS TROP, PTT, PT, HEPATIC, LACTIC, CK, DDIMER #### [address] MCV (RBC) [Entitic vol] 88.6 fL Normal 80-100 [facility] Comment on above: Performed By: #### C BC, BMP, BNP, HS TROP, PTT, PT, HEPATIC, LACTIC, CK, DDIMER #### [address] Mean Corpuscular HGB Conc 33.9 g/dL Normal 32.0-35.0 [facility] Comment on above: Performed By: #### C BC, BMP, BNP, HS TROP, PTT, PT, HEPATIC, LACTIC, CK, DDIMER #### [address] Monocytes (Bld) [#/Vol] 1.0 10*3/uL High 0.0-0.8 [facility] Comment on above: Performed By: #### C BC, BMP, BNP, HS TROP, PTT, PT, HEPATIC, LACTIC, CK, DDIMER #### [address] Monocytes/100 WBC (Bld) 9.5 % Normal . [facility] Comment on above: Performed By: #### C BC, BMP, BNP, HS TROP, PTT, PT, HEPATIC, LACTIC, CK, DDIMER #### [address] Neutrophils (Bld) [#/Vol] 8.5 10*3/uL High 1.8-7.7 [facility] Comment on above: Performed By: #### C BC, BMP, BNP, HS TROP, PTT, PT, HEPATIC, LACTIC, CK, DDIMER #### [address] Neutrophils/100 WBC (Bld) 80.3 % Normal . [facility] Comment on above: Performed By: #### C BC, BMP, BNP, HS TROP, PTT, PT, HEPATIC, LACTIC, CK, DDIMER #### [address] NRBC% 0.0 /100{WBC} Normal 0-0.5 [facility] Comment on above: Performed By: #### C BC, BMP, BNP, HS TROP, PTT, PT, HEPATIC, LACTIC, CK, DDIMER #### [address] Platelet mean volume (Bld) [Entitic vol] 6.3 fL Normal 6.3-10.7 [facility] Comment on above: Performed By: #### C BC, BMP, BNP, HS TROP, PTT, PT, HEPATIC, LACTIC, CK, DDIMER #### [address] Platelets (Bld) [#/Vol] 343 10*3/uL Normal 150-450 [facility] Comment on above: Performed By: #### C BC, BMP, BNP, HS TROP, PTT, PT, HEPATIC, LACTIC, CK, DDIMER #### [address] RBC (Bld) [#/Vol] 4.19 10*6/uL Normal 3.60-5.00 [facility] Comment on above: Performed By: #### C BC, BMP, BNP, HS TROP, PTT, PT, HEPATIC, LACTIC, CK, DDIMER #### [address] WBC (Bld) [#/Vol] 10.6 10*3/uL Normal 3.8-11.6 [facility] Comment on above: Performed By: #### C BC, BMP, BNP, HS TROP, PTT, PT, HEPATIC, LACTIC, CK, DDIMER #### [address] [place] [address] [facility] Glucose [Mass/volume] in Ser um or PlasmaOrdered By: Ethel Saucedo on 10-26-2023 Glucose [Mass/Vol] 105 mg/dL High 70-100 [facility] Comment on above: ADA recommended refe rence rangeRandom Glucose Reference Range is dependent on time and content of last meal. Glucose of more than 200 mg/dL in a nonstressed, ambulatory subject supports the diagnosis of Diabetes Mellitus. Result Comment: [place] [facility] Glucose Reference Range is dependent on time and content of last meal. Glucose of more than 200 mg/dL in a nonstressed, ambulatory subject supports the diagnosis of Diabetes Mellitus. ADA recommended reference range Performed By: #### C BC, BMP, BNP, HS TROP, PTT, PT, HEPATIC, LACTIC, CK, DDIMER #### [place] [id number] [facility] Magnesium [Mass/volume] in S jeevan or PlasmaOrdered By: Ethel Saucedo on 10-26-2023 Magnesium [Mass/Vol] 2.0 mg/dL Normal 1.9-2.7 [facility] Comment on above: Result Comment: PERF ORMED BY: [place] [address] PATHOLOGIST SOCIAL WORK INSTRUCTOR LYUDMILA GIANG M.D. Performed By: #### C BC, BMP, BNP, HS TROP, PTT, PT, HEPATIC, LACTIC, CK, DDIMER #### [place] [id number] [place] XR KUBon 10-26-2023 XR KUB [facility] Main [place] [id number] XRay Report Signed Patient: Evan Gill MR#: [id number] [birth year] : 1955 Acct:[id number] Age/Sex: 68 / F ADM Date: 10/26/23 Loc: 4 Room: 3Z4509-8 Type: ADM IN Attending Dr: Jm Trujillo [...] the GE junction. Patient has a left-sided [id number]-u-[id number] catheter. There is air within mildly distended small bowel loops within the central and left abdomen. There is contrast within nondistended renal collecting systems from recent CT. XR/XR KUB IMPRESSION: NG TUBE WITHIN THE STOMACH. Impression dictated by: Princess Sanchez M.D.10/26/2023 9:29 AM Dictation Location: [place] [address] Transcribed By: [place] 10/26/23928 Dictated By: Princess Sanchez MD 10/26/23927 Signed By: 10/26/23928 Normal [facility] Activated partial thrombopla stin time (aPTT) in platelet poor plasma by coagulation aOrdered By: Mary Al on 10-25-2023 aPTT Coag (PPP) [Time] 25.0 s 25.1-36.5 [facility] Comment on above: A hematocrit value g reater than 55% may lead to inaccurate results in coagulation testing. Patients having hematocrit values >55% require a special collection tube for coagulation studies. Please contact the laboratory at [phone] for redraw instructions. Alanine aminotransferase [En zymatic activity/volume] in Serum or PlasmaOrdered By: Mary Al on 10-25-2023 ALT [Catalytic activity/Vol] 36 U/L Normal 7-52 [facility] Comment on above: Performed By: #### C BC, BMP, BNP, HS TROP, PTT, PT, HEPATIC, LACTIC, CK, DDIMER #### [address] Albumin [Mass/volume] in Ser um or Plasma by Bromocresol green (BCG) dye binding methoOrdered By: Mary Al on 10-25-2023 Albumin BCG dye [Mass/Vol] 4.4 g/dL 3.5-5.7 [facility] Alkaline phosphatase [Enzyma tic activity/volume] in Serum or PlasmaOrdered By: Mray Al on 10-25-2023 ALP [Catalytic activity/Vol] 79 U/L Normal 34-104 [facility] Comment on above: Performed By: #### C BC, BMP, BNP, HS TROP, PTT, PT, HEPATIC, LACTIC, CK, DDIMER #### [facility] [address] Aspartate aminotransferase [ Enzymatic activity/volume] in Serum or PlasmaOrdered By: Mary Al on 10-25-2023 AST [Catalytic activity/Vol] 52 U/L High 13-39 [facility] Comment on above: Performed By: #### C BC, BMP, BNP, HS TROP, PTT, PT, HEPATIC, LACTIC, CK, DDIMER #### [address] Automated basophil %Ordered By: Mary Al on 10-25-2023 Basophils/100 WBC (Bld) 0.7 % Normal . [facility] Comment on above: Performed By: #### C BC, BMP, BNP, HS TROP, PTT, PT, HEPATIC, LACTIC, CK, DDIMER #### [address] Automated basophil countOrde red By: Mary Al on 10-25-2023 Basophils (Bld) [#/Vol] 0.1 10*3/uL Normal 0.0-0.2 [facility] Comment on above: Result Comment: PERF ORMED BY: [place] [address] PATHOLOGIST SOCIAL WORK INSTRUCTOR LYUDMILA GIANG M.D. Performed By: #### C BC, BMP, BNP, HS TROP, PTT, PT, HEPATIC, LACTIC, CK, DDIMER #### [address] Automated blood monocyte cou ntOrdered By: Mary Al on 10-25-2023 Monocytes (Bld) [#/Vol] 1.0 10*3/uL High 0.0-0.8 [facility] Comment on above: Performed By: #### C BC, BMP, BNP, HS TROP, PTT, PT, HEPATIC, LACTIC, CK, DDIMER #### [facility] [address] Automated eosinophil %Ordere d By: Mary Al on 10-25-2023 Eosinophils/100 WBC (Bld) 2.2 % Normal . [facility] Comment on above: Performed By: #### C BC, BMP, BNP, HS TROP, PTT, PT, HEPATIC, LACTIC, CK, DDIMER #### [facility] [address] Automated eosinophil countOr dered By: Mary Al on 10-25-2023 Eosinophils (Bld) [#/Vol] 0.3 10*3/uL Normal 0.0-0.45 [facility] Comment on above: Performed By: #### C BC, BMP, BNP, HS TROP, PTT, PT, HEPATIC, LACTIC, CK, DDIMER #### [address] Automated erythrocytes count in urine sediment (number/area)Ordered By: Mary Al on 10-25-2023 RBC Auto (Urine sed) [#/Area] 0-1 [HPF] 0-4 [facility] Automated leukocytes count i n urine sediment (number/area)Ordered By: Mary Al on 10-25-2023 WBC Auto (Urine sed) [#/Area] 10-19 [HPF] 0-4 [facility] Automated monocyte %Ordered By: Mary Al on 10-25-2023 Monocytes/100 WBC (Bld) 6.7 % Normal . [facility] Comment on above: Performed By: #### C BC, BMP, BNP, HS TROP, PTT, PT, HEPATIC, LACTIC, CK, DDIMER #### [address] Automated neutrophil %Ordere d By: Mary Al on 10-25-2023 Neutrophils/100 WBC (Bld) 75.5 % Normal . [facility] Comment on above: Performed By: #### C BC, BMP, BNP, HS TROP, PTT, PT, HEPATIC, LACTIC, CK, DDIMER #### [address] Automated urine color determ inationOrdered By: Mary Al on 10-25-2023 Color (U) Yellow Normal Yellow [facility] Comment on above: Order Comment: Name Collection Type:: Clean-Voided Midstream Performed By: #### C BC, BMP, BNP, HS TROP, PTT, PT, HEPATIC, LACTIC, CK, DDIMER #### [address] BNP ser/plasOrdered By: India Al on 10-25-2023 Natriuretic peptide B (Bld) [Mass/Vol] 42.0 pg/mL Normal 5-100 [facility] Comment on above: Result Comment: PERF ORMED BY: [place] [address] PATHOLOGIST SOCIAL WORK INSTRUCTOR LYUDMILA GIANG M.D. Performed By: #### C BC, BMP, BNP, HS TROP, PTT, PT, HEPATIC, LACTIC, CK, DDIMER #### [address] Basic Metabolic Panelon 10-08 Creatinine Clr Calc Pharmacy 61.55 Normal [facility] Comment on above: Result Comment: PERF ORMED BY: [place] [address] PATHOLOGIST SOCIAL WORK INSTRUCTOR LYUDMILA GIANG M.D. Performed By: #### C BC, BMP, BNP, HS TROP, PTT, PT, HEPATIC, LACTIC, CK, DDIMER #### [address] GFR/1.73 sq M.predicted MDRD (S/P/Bld) [Vol rate/Area] mL/min/{1.73_m2} Normal [facility] Comment on above: Performed By: #### C BC, BMP, BNP, HS TROP, PTT, PT, HEPATIC, LACTIC, CK, DDIMER #### [address] Bilirubin Test strip Ql (U)O rdered By: Mary Al on 10-25-2023 Bilirubin Ql (U) Negative Negative [facility] Bilirubin.direct [Mass/volum e] in Serum or PlasmaOrdered By: aMry Al on 10-25-2023 Bilirubin.direct [Mass/Vol] 0.20 mg/dL 0.03-0.18 [facility] Bilirubin.total [Mass/volume ] in Serum or PlasmaOrdered By: Mary Al on 10-25-2023 Bilirubin [Mass/Vol] 1.0 mg/dL Normal 0.3-1.0 [facility] Comment on above: Performed By: #### C BC, BMP, BNP, HS TROP, PTT, PT, HEPATIC, LACTIC, CK, DDIMER #### [facility] [address] [place] [address] Blood Cultureon 10-25-2023 Bacteria identified Cx Nom (Bld) NO GROWTH 5 DAYS PERFORMED BY: [place] [address] PATHOLOGIST SOCIAL WORK INSTRUCTOR LYUDMILA GIANG M.D. Normal [facility] Comment on above: Performed By: #### C BC, BMP, BNP, HS TROP, PTT, PT, HEPATIC, LACTIC, CK, DDIMER #### [facility] [address] [place] [address] Bacteria identified Cx Nom (Bld) NO GROWTH 5 DAYS PERFORMED BY: [place] [address] PATHOLOGIST SOCIAL WORK INSTRUCTOR LYUDMILA GIANG M.D. Normal [facility] Comment on above: Performed By: #### C BC, BMP, BNP, HS TROP, PTT, PT, HEPATIC, LACTIC, CK, DDIMER #### [address] CNPNon 10-25-2023 CNPN Telephone ([facility]) ----- EVAN GILL ([id number]) 1955 F Date Time Provider Department 10/25/23 LAISHA SINGER [facility] During your visit today, we recorded the following information about you: Amber Dhaliwal 10/25/2023 2:18 PM Signed Patient called in and thinks she is having another SBO. Patient is trying to avoid going to the ER and is requesting pain medication. Contact# [phone] Cierra Lindquist RN 10/25/2023 2:48 PM Signed Returned call. She states she is having the signs of another small bowel obstruction. She has not had stool in her ostomy since 3am. She is requesting pain medication to relax her bowels. She states that is what [facility] did to help her have bowel movements again. I informed her that pain medication slows down the peristalsis of the bowels, [...] other questions or concerns at this time. Allergies As of Date: 10/25/2023 (No Known Allergies) Date Reviewed: 10/10/2023 Reviewed by: Stacy Pérez MA - Fully Assessed Reason for Visit: Patient Question [1477] Medication Question [1478] Prescriptions as of 10/25/2023 - acetaminophen (TYLENOL) 500 mg tablet Take 2 tablets by mouth every 8 hours. - nitroglycerin sublingual (NITROQUICK) 0.4 mg SL tablet Dissolve 1 tablet under the tongue as needed for chest pain, may repeat every 5 minutes if no relief up to 3 times. - Amoxicillin 500 mg tablet FOR DENTAL WORK - omeprazole (PRILOSEC) 40 mg capsule Take 40 mg by mouth once daily. - vitamin D3/vitamin K2, MK4, (K2 PLUS D3 ORAL) Take 1 Dose by mouth once daily. - compounded progesterone 50 mg capsule Take 150 mg by mouth daily at bedtime. - Testosterone 12.5 mg/ 1.25 gram (1 %) glpm Apply 2 Pump as directed once daily. 0.5 MIL - ondansetron orally disintegrating (ZOFRAN ODT) 8 mg disintegrating tablet Take 1 tablet by mouth every 8 hours as needed for nausea/vomiting. - prochlorperazine (COMPAZINE) 10 mg tablet Take 1 tablet by mouth every 6 hours as needed. - ondansetron (ZOFRAN) 8 mg tablet Take 1 tablet by mouth every 8 hours as needed for nausea/vomiting. - vortioxetine (TRINTELLIX) 10 mg tablet Take 10 mg by mouth once daily. - oxybutynin ER (DITROPAN XL) 15 mg 24 hr Extended Rel Tab Take 15 mg by mouth. - aspirin, enteric coated (ASPIRIN, ENTERIC COATED) 81 mg EC tablet Take 81 mg by mouth once daily. - docosahexaenoic acid/epa (FISH OIL ORAL) Take 2,000 mg by mouth two times a day. - calcium carbonate/vitamin d3(CALCIUM 600 WITH VITAMIN D3 600 MG (1,500 MG)-400 UNIT CAP) Take 1 tablet by mouth once daily. Problem List As Of Date 10/25/2023 Noted Resolved OSTEOARTHROS NOS-ANKLE [M19.079] 12/20/2005 Personal History of Malignant Melanoma of Skin *04/28/2009 Rectal cancer (HCC) [C20] 06/14/2023 Iron deficiency anemia, unspecified [D50.9] 07/06/2023 Atrial fibrillation (HCC) [I48.91] 08/09/2023 Essential hypertension [I10] 04/25/2017 GERD (gastroesophageal reflux disease) [K21.9] 08/09/2023 Hemorrhoids [K64.9] 08/09/2023 Hyperlipidemia [E78.5] 08/09/2023 Mixed anxiety depressive disorder [F41.8] 08/09/2023 Rectal adenocarcinoma (HCC) [C20] 08/25/2023 Ileostomy present (HCC) [Z93.2] 08/26/2023 Encounter for ostomy care education [Z71.89] 08/26/2023 08/29/2023 Small bowel obstruction (HCC) [K56.609] 08/31/2023 09/04/2023 Ileostomy bag changed (HCC) [Z43.2] 08/31/2023 Encounter Status:Closed by CIERRA LINDQUIST on 10/25/23 Normal [facility] Calcium [Mass/volume] in Ser um or PlasmaOrdered By: Mary Al on 10-25-2023 Calcium [Mass/Vol] 9.9 mg/dL Normal 8.6-10.3 [facility] Comment on above: Performed By: #### C BC, BMP, BNP, HS TROP, PTT, PT, HEPATIC, LACTIC, CK, DDIMER #### [facility] [address] Carbon dioxide, total [Moles /volume] in Serum or PlasmaOrdered By: Mary Al on 10-25-2023 CO2 [Moles/Vol] 21.9 mmol/L Normal 21.0-31.0 [facility] Comment on above: Performed By: #### C BC, BMP, BNP, HS TROP, PTT, PT, HEPATIC, LACTIC, CK, DDIMER #### [facility] [address] Chloride [Moles/volume] in S jeevan or PlasmaOrdered By: Mary Al on 10-25-2023 Chloride [Moles/Vol] 100 mmol/L Normal 98-107 [facility] Comment on above: Performed By: #### C BC, BMP, BNP, HS TROP, PTT, PT, HEPATIC, LACTIC, CK, DDIMER #### [address] Complete Blood Count Auto Di ffon 10-25-2023 Mean Corpuscular HGB Conc 33.5 g/dL Normal 32.0-35.0 [facility] Comment on above: Performed By: #### C BC, BMP, BNP, HS TROP, PTT, PT, HEPATIC, LACTIC, CK, DDIMER #### [address] Monocytes/100 WBC (Bld) 18.93 % Normal 0.00-20.00 [facility] Comment on above: Performed By: #### C BC, BMP, BNP, HS TROP, PTT, PT, HEPATIC, LACTIC, CK, DDIMER #### [facility] [address] NRBC% 0.0 /100{WBC} Normal 0-0.5 [facility] Comment on above: Performed By: #### C BC, BMP, BNP, HS TROP, PTT, PT, HEPATIC, LACTIC, CK, DDIMER #### [facility] [address] [place] [id number] [facility] Creatine kinase [Enzymatic a ctivity/volume] in Serum or PlasmaOrdered By: Mary Al on 10-25-2023 CK [Catalytic activity/Vol] 128 U/L Normal 30-223 [facility] Comment on above: Performed By: #### C BC, BMP, BNP, HS TROP, PTT, PT, HEPATIC, LACTIC, CK, DDIMER #### [facility] [address] Creatinine [Mass/volume] in Serum or PlasmaOrdered By: Mary Al on 10-25-2023 Creatinine [Mass/Vol] 0.67 mg/dL Normal 0.60-1.20 [facility] Comment on above: Performed By: #### C BC, BMP, BNP, HS TROP, PTT, PT, HEPATIC, LACTIC, CK, DDIMER #### [facility] [address] D-Dimer High Sensitivityon 0 10-25-2023 D-Dimer High Sensitivity 312 ng/mL High 0-243 [facility] Comment on above: Result Comment: [...] coagulation studies. Please contact the laboratory at [phone] for redraw instructions. PERFORMED BY: [place] [address] PATHOLOGIST SOCIAL WORK INSTRUCTOR LYUDMILA GIANG M.D. Performed By: #### C BC, BMP, BNP, HS TROP, PTT, PT, HEPATIC, LACTIC, CK, DDIMER #### [address] Dipstick and Microscopicon 0 10-25-2023 Appearance (U) Clear Normal Clear [facility] Comment on above: Order Comment: Name Collection Type:: Clean-Voided Midstream Performed By: #### C BC, BMP, BNP, HS TROP, PTT, PT, HEPATIC, LACTIC, CK, DDIMER #### [address] Bacteria,Urine None Seen Normal None Seen [facility] Comment on above: Order Comment: Name Collection Type:: Clean-Voided Midstream Performed By: #### C BC, BMP, BNP, HS TROP, PTT, PT, HEPATIC, LACTIC, CK, DDIMER #### [address] Bilirubin,Urine Negative Normal Negative [facility] Comment on above: Order Comment: Name Collection Type:: Clean-Voided Midstream Performed By: #### C BC, BMP, BNP, HS TROP, PTT, PT, HEPATIC, LACTIC, CK, DDIMER #### [place] [id number] [facility] Glucose Ql (U) Normal Normal Normal [facility] Comment on above: Order Comment: Name Collection Type:: Clean-Voided Midstream Performed By: #### C BC, BMP, BNP, HS TROP, PTT, PT, HEPATIC, LACTIC, CK, DDIMER #### [place] [id number] [facility] Hyaline Casts,Urine None Seen Normal 0-[address] [facility] Comment on above: Order Comment: Name Collection Type:: Clean-Voided Midstream Result Comment: PERF ORMED BY: [place] [address] PATHOLOGIST SOCIAL WORK INSTRUCTOR LYUDMILA GIANG M.D. Performed By: #### C BC, BMP, BNP, HS TROP, PTT, PT, HEPATIC, LACTIC, CK, DDIMER #### [address] Ketones Ql (U) Negative Normal Negative [facility] Comment on above: Order Comment: Name Collection Type:: Clean-Voided Midstream Performed By: #### C BC, BMP, BNP, HS TROP, PTT, PT, HEPATIC, LACTIC, CK, DDIMER #### [address] Leukocyte esterase Test strip Ql (U) 2+ High Negative [facility] Comment on above: Order Comment: Name Collection Type:: Clean-Voided Midstream Performed By: #### C BC, BMP, BNP, HS TROP, PTT, PT, HEPATIC, LACTIC, CK, DDIMER #### [address] Nitrite,Urine Negative Normal Negative [facility] Comment on above: Order Comment: Name Collection Type:: Clean-Voided Midstream Performed By: #### C BC, BMP, BNP, HS TROP, PTT, PT, HEPATIC, LACTIC, CK, DDIMER #### [address] Occult Blood,Urine Trace High Negative [facility] Comment on above: Order Comment: Name Collection Type:: Clean-Voided Midstream Result Comment: PERF ORMED BY: [place] [address] PATHOLOGIST SOCIAL WORK INSTRUCTOR LYUDMILA GIANG M.D. Performed By: #### C BC, BMP, BNP, HS TROP, PTT, PT, HEPATIC, LACTIC, CK, DDIMER #### [address] Protein,Urine Negative Normal Negative [facility] Comment on above: Order Comment: Name Collection Type:: Clean-Voided Midstream Performed By: #### C BC, BMP, BNP, HS TROP, PTT, PT, HEPATIC, LACTIC, CK, DDIMER #### [address] [place] [address] [place] RBC LM.HPF (Urine sed) [#/Area] 0 /[HPF] Normal 0-4 [facility] Comment on above: Order Comment: Name Collection Type:: Clean-Voided Midstream Performed By: #### C BC, BMP, BNP, HS TROP, PTT, PT, HEPATIC, LACTIC, CK, DDIMER #### [address] Specificy Gratis,Urine 1.037 High 1.001-1.03 0 [facility] Comment on above: Order Comment: Name Collection Type:: Clean-Voided Midstream Performed By: #### C BC, BMP, BNP, HS TROP, PTT, PT, HEPATIC, LACTIC, CK, DDIMER #### [address] Squamous Epithelial Cell,Urine 0-1 Normal 0-2 [facility] Comment on above: Order Comment: Name Collection Type:: Clean-Voided Midstream Performed By: #### C BC, BMP, BNP, HS TROP, PTT, PT, HEPATIC, LACTIC, CK, DDIMER #### [address] Urobilinogen,Urine Normal Normal Normal [facility] Comment on above: Order Comment: Name Collection Type:: Clean-Voided Midstream Performed By: #### C BC, BMP, BNP, HS TROP, PTT, PT, HEPATIC, LACTIC, CK, DDIMER #### [address] WBC,Urine 10-19 High 0-4 [facility] Comment on above: Order Comment: Name Collection Type:: Clean-Voided Midstream Performed By: #### C BC, BMP, BNP, HS TROP, PTT, PT, HEPATIC, LACTIC, CK, DDIMER #### [address] ECG 12 lead ECGon 10-25-2023 ECG 12 lead ECG [facility] [address] [place] [address] Electrocardiograph Report Signed Patient: Evan Gill MR#: [id number] : 1955 Acct:[id number] Age/Sex: 68 / F ADM Date: 10/26/23 Loc: Room: [address] [place] [address] Type: ADM IN Attending Dr: Jm Trujillo [...] Inferior leads Confirmed by GHASSAN GOMEZ MD ([id number]) on 10/27/2023 4:27:48 AM Referred By: Electronically Signed By:GHASSAN GOMEZ MD Transcribed By: MUS Signed By Ghassan Gomez Jr, MD [id number] Normal [facility] Erythrocyte distribution wid th [Ratio] by Automated countOrdered By: Mary Al on 10-25-2023 Erythrocyte distribution width (RBC) [Ratio] 15.5 % High 11.9-15.3 [facility] Comment on above: Performed By: #### C BC, BMP, BNP, HS TROP, PTT, PT, HEPATIC, LACTIC, CK, DDIMER #### [facility] [address] [place] [address] [place] Erythrocytes [#/volume] in B lood by Automated countOrdered By: Mary Al on 10-25-2023 RBC (Bld) [#/Vol] 4.39 10*6/uL Normal 3.60-5.00 [facility] Comment on above: Performed By: #### C BC, BMP, BNP, HS TROP, PTT, PT, HEPATIC, LACTIC, CK, DDIMER #### [facility] [address] Fibrin D-dimer [Presence] in Platelet poor plasma by Latex agglutinationOrdered By: Mary Al on 10-25-2023 Fibrin D-dimer LA Ql (PPP) 312 ng/mL 0-243 [facility] Comment on above: The reference range for [...] coagulation studies. Please contact the laboratory at [phone] for redraw instructions. Glucose [Mass/volume] in Ser um or PlasmaOrdered By: Mary Al on 10-25-2023 Glucose [Mass/Vol] 132 mg/dL High 70-100 [facility] Comment on above: ADA recommended refe rence rangeRandom Glucose Reference Range is dependent on time and content of last meal. Glucose of more than 200 mg/dL in a nonstressed, ambulatory subject supports the diagnosis of Diabetes Mellitus. Result Comment: [place] om Glucose Reference Range is dependent on time and content of last meal. Glucose of more than 200 mg/dL in a nonstressed, ambulatory subject supports the diagnosis of Diabetes Mellitus. ADA recommended reference range Performed By: #### C BC, BMP, BNP, HS TROP, PTT, PT, HEPATIC, LACTIC, CK, DDIMER #### [facility] [address] [place] [address] [place] Hematocrit [Volume Fraction] of Blood by Automated countOrdered By: Mary Al on 10-25-2023 Hematocrit (Bld) [Volume fraction] 38.4 % Normal 34.0-46.4 [facility] Comment on above: Performed By: #### C BC, BMP, BNP, HS TROP, PTT, PT, HEPATIC, LACTIC, CK, DDIMER #### [facility] [address] [place] [address] [place] Hemoglobin [Mass/volume] in BloodOrdered By: Mary Al on 10-25-2023 Hemoglobin (Bld) [Mass/Vol] 12.9 g/dL Normal 11.8-15.4 [facility] Comment on above: Performed By: #### C BC, BMP, BNP, HS TROP, PTT, PT, HEPATIC, LACTIC, CK, DDIMER #### [facility] [address] Hepatic Panelon 10-25-2023 Albumin [Mass/Vol] 4.4 g/dL Normal 3.5-5.7 [facility] Comment on above: Performed By: #### C BC, BMP, BNP, HS TROP, PTT, PT, HEPATIC, LACTIC, CK, DDIMER #### [facility] [address] Bilirubin,Indirect 0.8 mg/dL Normal [facility] Comment on above: Performed By: #### C BC, BMP, BNP, HS TROP, PTT, PT, HEPATIC, LACTIC, CK, DDIMER #### [facility] [address] Bilirubin.indirect [Mass/Vol] 0.20 mg/dL High 0.03-0.18 [facility] Comment on above: Performed By: #### C BC, BMP, BNP, HS TROP, PTT, PT, HEPATIC, LACTIC, CK, DDIMER #### [facility] [address] INR in Platelet poor plasma by Coagulation assayOrdered By: Mary Al on 10-25-2023 INR Coag (PPP) [Relative time] 1.0 {INR} Normal [facility] Comment on above: INR Therapeutic Rang e A) Pre- and Peroperative OAT started two weeks before surgery. NOT HIP SURGERY: 1.5 - 2.5 HIP SURGERY: 2 - 3B) Primary and secondary prevention of venous THROMBOSIS: 2 - 3C) Active venous thrombosis, pulmonary embolismand prevention of recurrent venous thrombosis: 2 - 3D) Prevention of arterial thromboembolismincluding patients with mechanical heart valves: 3 - 4.5 Result Comment: INR Therapeutic Range A) Pre- [...] valves: 3 - 4.5 Performed By: #### C BC, BMP, BNP, HS TROP, PTT, PT, HEPATIC, LACTIC, CK, DDIMER #### [facility] [address] Ketones Auto test strip (U) [Mass/Vol]Ordered By: Mary Al on 10-25-2023 Ketones (U) [Mass/Vol] Negative Negative [facility] - UrinalysisOrder ed By: Mary Al on 10-25-2023 Hyaline casts LM Ql (Urine sed) None seen [LPF] 0-8 [facility] Lactate [Moles/volume] in Se rum or PlasmaOrdered By: Mary Al on 10-25-2023 Lactate [Moles/Vol] 1.3 mmol/L Normal 0.5-2.2 [facility] Comment on above: Result Comment: PERF ORMED BY: [place] [address] PATHOLOGIST SOCIAL WORK INSTRUCTOR LYUDMILA GIANG M.D. Performed By: #### C BC, BMP, BNP, HS TROP, PTT, PT, HEPATIC, LACTIC, CK, DDIMER #### [facility] [address] Leukocytes [#/volume] correc french for nucleated erythrocytes in Blood by Automated counOrdered By: Mary Al on 10-25-2023 WBC corrected for nucl RBC Auto (Bld) [#/Vol] 14.4 10*3/uL 3.8-11.6 [facility] Leukocytes [#/volume] in Blo od by Automated countOrdered By: Mary Al on 10-25-2023 WBC (Bld) [#/Vol] 14.4 10*3/uL High 3.8-11.6 [facility] Comment on above: Performed By: #### C BC, BMP, BNP, HS TROP, PTT, PT, HEPATIC, LACTIC, CK, DDIMER #### [address] Lymphocytes [#/volume] in Bl ood by Automated countOrdered By: Mary Al on 10-25-2023 Lymphocytes (Bld) [#/Vol] 2.2 10*3/uL Normal 1.00-4.8 [facility] Comment on above: Performed By: #### C BC, BMP, BNP, HS TROP, PTT, PT, HEPATIC, LACTIC, CK, DDIMER #### [facility] [address] Lymphocytes/100 leukocytes i n Blood by Automated countOrdered By: Mary Al on 10-25-2023 Lymphocytes/100 WBC (Bld) 14.9 % Normal . [facility] Comment on above: Performed By: #### C BC, BMP, BNP, HS TROP, PTT, PT, HEPATIC, LACTIC, CK, DDIMER #### [address] MCH [Entitic mass] by Automa french countOrdered By: Mary Al on 10-25-2023 MCH (RBC) [Entitic mass] 29.3 pg Normal 24.7-34.3 [facility] Comment on above: Performed By: #### C BC, BMP, BNP, HS TROP, PTT, PT, HEPATIC, LACTIC, CK, DDIMER #### [address] MCHC Auto (RBC) [Mass/Vol]Or dered By: Mary Al on 10-25-2023 MCHC (RBC) [Mass/Vol] 33.5 g/dL 32.0-35.0 [facility] MCV [Entitic volume] by Auto mated countOrdered By: Mary Al on 10-25-2023 MCV (RBC) [Entitic vol] 87.5 fL Normal 80-100 [facility] Comment on above: Performed By: #### C BC, BMP, BNP, HS TROP, PTT, PT, HEPATIC, LACTIC, CK, DDIMER #### [address] Monocyte distribution width [Entitic volume] in Blood by AutomatedOrdered By: Mary Al on 10-25-2023 Monocyte distribution width Auto (Bld) [Entitic vol] 18.93 % 0.00-20.00 [facility] Neutrophils [#/volume] in Bl ood by Automated countOrdered By: Mary lA on 10-25-2023 Neutrophils (Bld) [#/Vol] 10.9 10*3/uL High 1.8-7.7 [facility] Comment on above: Performed By: #### C BC, BMP, BNP, HS TROP, PTT, PT, HEPATIC, LACTIC, CK, DDIMER #### [facility] [address] Nitrite Test strip Ql (U)Ord ered By: Mary Al on 10-25-2023 Nitrite Ql (U) Negative Negative [facility] No Panel InformationOrdered By: Mary Al on 10-25-2023 Estimated GFR (CKD-EPI) > 60.0 mL/Min [facility] Creatinine Clearance (Chem 61.55 [facility] Nucleated erythrocytes [Pres ence] in Blood by Automated countOrdered By: Mary Al on 10-25-2023 Nucleated RBC Auto Ql (Bld) 0.0 /100{WBC} 0-0.5 [facility] Partial Thromboplastin Timeo n 10-25-2023 aPTT Coag (Bld) [Time] 25.0 s Low 25.1-36.5 Th e [facility] Comment on above: Result Comment: A he matocrit value greater than 55% may lead to inaccurate results in coagulation testing. Patients having hematocrit values >55% require a special collection tube for coagulation studies. Please contact the laboratory at [phone] for redraw instructions. Performed By: #### C BC, BMP, BNP, HS TROP, PTT, PT, HEPATIC, LACTIC, CK, DDIMER #### [facility] [address] [id number] [facility] Platelet mean volume [Entiti c volume] in Blood by Automated countOrdered By: Mary Al on 10-25-2023 Platelet mean volume (Bld) [Entitic vol] 6.4 fL Normal 6.3-10.7 [facility] Comment on above: Performed By: #### C BC, BMP, BNP, HS TROP, PTT, PT, HEPATIC, LACTIC, CK, DDIMER #### [facility] [address] Platelets [#/volume] in Bloo d by Automated countOrdered By: Mary Al on 10-25-2023 Platelets (Bld) [#/Vol] 397 10*3/uL Normal 150-450 [facility] Comment on above: Performed By: #### C BC, BMP, BNP, HS TROP, PTT, PT, HEPATIC, LACTIC, CK, DDIMER #### [facility] [address] Potassium [Moles/volume] in Serum or PlasmaOrdered By: Mary Al on 10-25-2023 Potassium [Moles/Vol] 4.0 mmol/L Normal 3.5-5.1 [facility] Comment on above: Performed By: #### C BC, BMP, BNP, HS TROP, PTT, PT, HEPATIC, LACTIC, CK, DDIMER #### [facility] [address] Protein Auto test strip (U) [Mass/Vol]Ordered By: Mary Al on 10-25-2023 Protein (U) [Mass/Vol] Negative Negative [facility] Protein [Mass/volume] in Ser um or PlasmaOrdered By: Mary Al on 10-25-2023 Protein [Mass/Vol] 7.3 g/dL Normal 6.4-8.9 [facility] Comment on above: Performed By: #### C BC, BMP, BNP, HS TROP, PTT, PT, HEPATIC, LACTIC, CK, DDIMER #### [facility] [address] Prothrombin time (PT)Ordered By: Mary Al on 10-25-2023 PT Coag (PPP) [Time] 11.4 s Normal 9.0-12.9 [facility] Comment on above: A hematocrit value g reater than 55% may lead to inaccurate results in coagulation testing. Patients having hematocrit values >55% require a special collection tube for coagulation studies. Please contact the laboratory at [phone] for redraw instructions. Result Comment: A he matocrit value greater than 55% may lead to inaccurate results in coagulation testing. Patients having hematocrit values >55% require a special collection tube for coagulation studies. Please contact the laboratory at [phone] for redraw instructions. Performed By: #### C BC, BMP, BNP, HS TROP, PTT, PT, HEPATIC, LACTIC, CK, DDIMER #### [address] Serum globulin measurement b y calculation (mass/volume)Ordered By: Mary Al on 10-25-2023 Globulin (S) [Mass/Vol] 2.9 g/dL [facility] Comment on above: Performed By: #### C BC, BMP, BNP, HS TROP, PTT, PT, HEPATIC, LACTIC, CK, DDIMER #### [address] Serum or plasma albumin/glob ulin mass ratioOrdered By: Mary Al on 10-25-2023 Albumin/Globulin [Mass ratio] 1.5 {ratio} [facility] Comment on above: Performed By: #### C BC, BMP, BNP, HS TROP, PTT, PT, HEPATIC, LACTIC, CK, DDIMER #### [address] Serum or plasma anion gap de terminationOrdered By: Mary Al on 10-25-2023 Anion gap [Moles/Vol] 15.1 mmol/L High 6.0-15.0 [facility] Comment on above: Performed By: #### C BC, BMP, BNP, HS TROP, PTT, PT, HEPATIC, LACTIC, CK, DDIMER #### [address] Serum or plasma non-glucuron idated bilirubin measurement (mass/volume)Ordered By: Mary Al on 10-25-2023 Bilirubin.indirect [Mass/Vol] 0.8 mg/dL [facility] Sodium [Moles/volume] in Ser um or PlasmaOrdered By: Mary Al on 10-25-2023 Sodium [Moles/Vol] 133 mmol/L Significant change down 136-145 [facility] Comment on above: Delta: 142 on Performed By: #### C BC, BMP, BNP, HS TROP, PTT, PT, HEPATIC, LACTIC, CK, DDIMER #### [facility] [address] [place] [address] Specific gravity Auto test s trip (U) [Rel density]Ordered By: Mary Al on 10-25-2023 Specific gravity (U) [Rel density] 1.037 1.001-1.03 0 [facility] Squamous epithelial cells de tection in urine sediment by light microscopyOrdered By: Mary Al on 10-25-2023 Epithelial cells.squamous LM Ql (Urine sed) 0-1 [HPF] 0-2 [facility] Troponin I High Sensitivityo n 10-25-2023 Troponin I High Sensitivity 4.9 pg/mL Normal 0.0-15.0 [facility] Comment on above: Result Comment: PERF ORMED BY: [place] [address] PATHOLOGIST SOCIAL WORK INSTRUCTOR LYUDMILA GIANG M.D. Performed By: #### H S TROP #### [address] Troponin I High Sensitivity 6.3 pg/mL Normal 0.0-15.0 [facility] Comment on above: Result Comment: PERF ORMED BY: [place] [address] PATHOLOGIST SOCIAL WORK INSTRUCTOR LYUDMILA GIANG M.D. Performed By: #### C BC, BMP, BNP, HS TROP, PTT, PT, HEPATIC, LACTIC, CK, DDIMER #### [facility] [address] [place] [address] Troponin I.cardiac [Mass/vol ume] in Serum or Plasma by Detection limit <= 0.01 ng/Ordered By: Mary Al on 10-25-2023 Troponin I.cardiac DL <= 0.01 ng/mL [Mass/Vol] 4.9 pg/mL 0.0-15.0 [facility] Urea nitrogen [Mass/volume] in Serum or PlasmaOrdered By: Mary Al on 10-25-2023 Urea nitrogen [Mass/Vol] 20 mg/dL Normal 7-25 [facility] Comment on above: Performed By: #### C BC, BMP, BNP, HS TROP, PTT, PT, HEPATIC, LACTIC, CK, DDIMER #### [facility] [address] Urine Cultureon 10-25-2023 Bacteria identified Cx Nom (U) 25,000 colonies/ml mixed bacterial skin contaminants 2 Days PERFORMED BY: [place] [address] PATHOLOGIST SOCIAL WORK INSTRUCTOR LYUDMILA GIANG M.D. Normal [facility] Comment on above: Performed By: #### C BC, BMP, BNP, HS TROP, PTT, PT, HEPATIC, LACTIC, CK, DDIMER #### [facility] [address] Urine bacteria detection by automated methodOrdered By: Mary Al on 10-25-2023 Bacteria Auto Ql (U) None seen None Seen [facility] Urine clarity by refractomet ry automatedOrdered By: Mary Al on 10-25-2023 Clarity Refractometry automated (U) Clear Clear [facility] Urine culture routineOrdered By: Mary Al on 10-25-2023 Bacteria identified Cx Nom (U) 2 Days [facility] Urine glucose measurement by automated test strip (mass/volume)Ordered By: Mary Al on 10-25-2023 Glucose Auto test strip (U) [Mass/Vol] Normal mg/dL Normal [facility] Urine hemoglobin detection b y automated test stripOrdered By: Mary Al on 10-25-2023 Hemoglobin Auto test strip Ql (U) Trace Negative [facility] Urine leukocyte esterase det ection by automated test stripOrdered By: Mary Al on 10-25-2023 Leukocyte esterase Auto test strip Ql (U) 2+ Negative [facility] Urine pH measurement by auto mated test stripOrdered By: Mary Al on 10-25-2023 pH (U) 5.5 [pH] Normal 5.0-9.0 [facility] Comment on above: Order Comment: Name Collection Type:: Clean-Voided Midstream Performed By: #### C BC, BMP, BNP, HS TROP, PTT, PT, HEPATIC, LACTIC, CK, DDIMER #### [facility] [address] Urobilinogen Auto test strip (U) [Mass/Vol]Ordered By: Mary Al on 10-25-2023 Urobilinogen (U) [Mass/Vol] Normal mg/dL Normal [facility] A1C with Estimated Average G sandra 10-24-2023 Glucose [Mass/Vol] 111 mg/dL Normal [facility] Comment on above: Result Comment: PERF ORMED BY: [place] [address] PATHOLOGIST SOCIAL WORK INSTRUCTOR LYUDMILA GIANG M.D. Performed By: #### C BC, BMP, BNP, HS TROP, PTT, PT, HEPATIC, LACTIC, CK, DDIMER #### [facility] [address] [place] [address] Alanine aminotransferase [En zymatic activity/volume] in Serum or PlasmaOrdered By: Charles Bazzi on 10-24-2023 ALT [Catalytic activity/Vol] 12 U/L Normal 7-52 [facility] Comment on above: Order Comment: Reaso n for Exam Hyperlipidemia Performed By: #### C BC, BMP, BNP, HS TROP, PTT, PT, HEPATIC, LACTIC, CK, DDIMER #### [facility] [address] [place] [address] [place] Albumin [Mass/volume] in Ser um or Plasma by Bromocresol green (BCG) dye binding methoOrdered By: Charles Bazzi on 10-24-2023 Albumin BCG dye [Mass/Vol] 4.0 g/dL 3.5-5.7 [facility] Alkaline phosphatase [Enzyma tic activity/volume] in Serum or PlasmaOrdered By: Charles Bazzi on 10-24-2023 ALP [Catalytic activity/Vol] 68 U/L Normal 34-104 [facility] Comment on above: Order Comment: Reaso n for Exam Hyperlipidemia Performed By: #### C BC, BMP, BNP, HS TROP, PTT, PT, HEPATIC, LACTIC, CK, DDIMER #### [address] Aspartate aminotransferase [ Enzymatic activity/volume] in Serum or PlasmaOrdered By: Charles Bazzi on 10-24-2023 AST [Catalytic activity/Vol] 12 U/L Low 13-39 [facility] Comment on above: Order Comment: Reaso n for Exam Hyperlipidemia Performed By: #### C BC, BMP, BNP, HS TROP, PTT, PT, HEPATIC, LACTIC, CK, DDIMER #### [address] Automated basophil %Ordered By: Charles Bazzi on 10-24-2023 Basophils/100 WBC (Bld) 0.9 % Normal . [facility] Comment on above: Performed By: #### C BC, BMP, BNP, HS TROP, PTT, PT, HEPATIC, LACTIC, CK, DDIMER #### [address] Automated basophil countOrde red By: Charles Bazzi on 10-24-2023 Basophils (Bld) [#/Vol] 0.0 10*3/uL Normal 0.0-0.2 [facility] Comment on above: Result Comment: PERF ORMED BY: [place] [address] PATHOLOGIST SOCIAL WORK INSTRUCTOR LYUDMILA GIANG M.D. Performed By: #### C BC, BMP, BNP, HS TROP, PTT, PT, HEPATIC, LACTIC, CK, DDIMER #### [address] Automated blood monocyte cou ntOrdered By: Charles Bazzi on 10-24-2023 Monocytes (Bld) [#/Vol] 0.5 10*3/uL Normal 0.0-0.8 [facility] Comment on above: Performed By: #### C BC, BMP, BNP, HS TROP, PTT, PT, HEPATIC, LACTIC, CK, DDIMER #### [address] Automated eosinophil %Ordere d By: Charles Bazzi on 10-24-2023 Eosinophils/100 WBC (Bld) 9.5 % Normal . [facility] Comment on above: Performed By: #### C BC, BMP, BNP, HS TROP, PTT, PT, HEPATIC, LACTIC, CK, DDIMER #### [facility] [address] Automated eosinophil countOr dered By: Charles Bazzi on 10-24-2023 Eosinophils (Bld) [#/Vol] 0.5 10*3/uL High 0.0-0.45 [facility] Comment on above: Performed By: #### C BC, BMP, BNP, HS TROP, PTT, PT, HEPATIC, LACTIC, CK, DDIMER #### [facility] [address] Automated monocyte %Ordered By: Charles Bazzi on 10-24-2023 Monocytes/100 WBC (Bld) 10.5 % Normal . [facility] Comment on above: Performed By: #### C BC, BMP, BNP, HS TROP, PTT, PT, HEPATIC, LACTIC, CK, DDIMER #### [facility] [address] Automated neutrophil %Ordere d By: Charles Bazzi on 10-24-2023 Neutrophils/100 WBC (Bld) 58.2 % Normal . [facility] Comment on above: Performed By: #### C BC, BMP, BNP, HS TROP, PTT, PT, HEPATIC, LACTIC, CK, DDIMER #### [facility] [address] Bilirubin.total [Mass/volume ] in Serum or PlasmaOrdered By: Charles Bazzi on 10-24-2023 Bilirubin [Mass/Vol] 0.5 mg/dL Normal 0.3-1.0 [facility] Comment on above: Order Comment: Reaso n for Exam Hyperlipidemia Performed By: #### C BC, BMP, BNP, HS TROP, PTT, PT, HEPATIC, LACTIC, CK, DDIMER #### [facility] [address] Calcium [Mass/volume] in Ser um or PlasmaOrdered By: Charles Bazzi on 10-24-2023 Calcium [Mass/Vol] 9.5 mg/dL Normal 8.6-10.3 [facility] Comment on above: Order Comment: Reaso n for Exam Hyperlipidemia Performed By: #### C BC, BMP, BNP, HS TROP, PTT, PT, HEPATIC, LACTIC, CK, DDIMER #### [facility] [address] [place] [address] [place] Carbon dioxide, total [Moles /volume] in Serum or PlasmaOrdered By: Charles Bazzi on 10-24-2023 CO2 [Moles/Vol] 31.6 mmol/L High 21.0-31.0 [facility] Comment on above: Order Comment: Reaso n for Exam Hyperlipidemia Performed By: #### C BC, BMP, BNP, HS TROP, PTT, PT, HEPATIC, LACTIC, CK, DDIMER #### [facility] [address] [place] [address] [place] Chloride [Moles/volume] in S jeevan or PlasmaOrdered By: Charles Bazzi on 10-24-2023 Chloride [Moles/Vol] 105 mmol/L Normal 98-107 [facility] Comment on above: Order Comment: Reaso n for Exam Hyperlipidemia Performed By: #### C BC, BMP, BNP, HS TROP, PTT, PT, HEPATIC, LACTIC, CK, DDIMER #### [facility] [address] [id number] [facility] Cholesterol [Mass/volume] in Serum or PlasmaOrdered By: Charles Bazzi on 10-24-2023 Cholesterol [Mass/Vol] 187 mg/dL Normal 140-200 [facility] Comment on above: Chol less than 200 m g/dl low riskChol 201-239 mg/dl borderline riskChol 240 mg/dl and greater high risk Order Comment: Reaso n for Exam Hyperlipidemia Result Comment: Chol less than 200 mg/dl low risk Chol 201-239 mg/dl borderline risk Chol 240 mg/dl and greater high risk Performed By: #### C BC, BMP, BNP, HS TROP, PTT, PT, HEPATIC, LACTIC, CK, DDIMER #### [facility] [address] [id number] [place] Cholesterol in LDL Calc [Mas s/Vol]Ordered By: Charles Bazzi on 10-24-2023 Cholesterol in LDL [Mass/Vol] 95 mg/dL 0-100 [facility] Comment on above: LDL ATP III CLASSIFI CATIONLDL less than 100 mg/dL OptimalLDL 100-129 mg/dL Near or above optimalLDL 130-159 mg/dL Borderline highLDL 160-189 mg/dL HighLDL greater than 189 mg/dL Very high Cholesterol in VLDL Calc [Ma ss/Vol]Ordered By: Charles Bazzi on 10-24-2023 Cholesterol in VLDL [Mass/Vol] 38 mg/dL [facility] Complete Blood Count Auto Di ffon 10-24-2023 Mean Corpuscular HGB Conc 33.1 g/dL Normal 32.0-35.0 [facility] Comment on above: Performed By: #### C BC, BMP, BNP, HS TROP, PTT, PT, HEPATIC, LACTIC, CK, DDIMER #### [facility] [address] NRBC% 0.1 /100{WBC} Normal 0-0.5 [facility] Comment on above: Performed By: #### C BC, BMP, BNP, HS TROP, PTT, PT, HEPATIC, LACTIC, CK, DDIMER #### [facility] [address] Comprehensive Metabolic Pane sue 10-24-2023 Albumin [Mass/Vol] 4.0 g/dL Normal 3.5-5.7 [facility] Comment on above: Order Comment: Reaso n for Exam Hyperlipidemia Performed By: #### C BC, BMP, BNP, HS TROP, PTT, PT, HEPATIC, LACTIC, CK, DDIMER #### [facility] [address] GFR/1.73 sq M.predicted MDRD (S/P/Bld) [Vol rate/Area] mL/min/{1.73_m2} Normal [facility] Comment on above: Order Comment: Reaso n for Exam Hyperlipidemia Performed By: #### C BC, BMP, BNP, HS TROP, PTT, PT, HEPATIC, LACTIC, CK, DDIMER #### [facility] [address] Creatinine [Mass/volume] in Serum or PlasmaOrdered By: Charles Bazzi on 10-24-2023 Creatinine [Mass/Vol] 0.71 mg/dL Normal 0.60-1.20 [facility] Comment on above: Order Comment: Reaso n for Exam Hyperlipidemia Performed By: #### C BC, BMP, BNP, HS TROP, PTT, PT, HEPATIC, LACTIC, CK, DDIMER #### [facility] [address] Erythrocyte distribution wid th [Ratio] by Automated countOrdered By: Charles Bazzi on 10-24-2023 Erythrocyte distribution width (RBC) [Ratio] 15.4 % High 11.9-15.3 [facility] Comment on above: Performed By: #### C BC, BMP, BNP, HS TROP, PTT, PT, HEPATIC, LACTIC, CK, DDIMER #### [facility] [address] Erythrocytes [#/volume] in B lood by Automated countOrdered By: Charles Bazzi on 10-24-2023 RBC (Bld) [#/Vol] 3.80 10*6/uL Normal 3.60-5.00 [facility] Comment on above: Performed By: #### C BC, BMP, BNP, HS TROP, PTT, PT, HEPATIC, LACTIC, CK, DDIMER #### [facility] [address] Glucose [Mass/volume] in Ser um or PlasmaOrdered By: Charles Bazzi on 10-24-2023 Glucose [Mass/Vol] 77 mg/dL Normal 70-100 [facility] Comment on above: ADA recommended refe rence rangeRandom Glucose Reference Range is dependent on time and content of last meal. Glucose of more than 200 mg/dL in a nonstressed, ambulatory subject supports the diagnosis of Diabetes Mellitus. Order Comment: Reaso n for Exam Hyperlipidemia Result Comment: [place] om Glucose Reference Range is dependent on time and content of last meal. Glucose of more than 200 mg/dL in a nonstressed, ambulatory subject supports the diagnosis of Diabetes Mellitus. ADA recommended reference range Performed By: #### C BC, BMP, BNP, HS TROP, PTT, PT, HEPATIC, LACTIC, CK, DDIMER #### [address] Glucose mean value [Mass/vol ume] in Blood Estimated from glycated hemoglobinOrdered By: Charles Bazzi on 10-24-2023 Average glucose Estimated from glycated hemoglobin (Bld) [Mass/Vol] 111 mg/dL [facility] Hematocrit [Volume Fraction] of Blood by Automated countOrdered By: Charles Bazzi on 10-24-2023 Hematocrit (Bld) [Volume fraction] 34.2 % Normal 34.0-46.4 [facility] Comment on above: Performed By: #### C BC, BMP, BNP, HS TROP, PTT, PT, HEPATIC, LACTIC, CK, DDIMER #### [address] Hemoglobin A1c percentageOrd ered By: Charles Bazzi on 10-24-2023 HbA1c (Bld) [Mass fraction] 5.5 % Normal 4.3-5.6 [facility] Comment on above: Increased risk for d iabetes: 5.7 - 6.4diabetes: >6.4glycemic control for adults with diabetes: <7.0 Result Comment: Incr eased risk for diabetes: 5.7 - 6.4 diabetes: >6.4 glycemic control for adults with diabetes: <7.0 Performed By: #### C BC, BMP, BNP, HS TROP, PTT, PT, HEPATIC, LACTIC, CK, DDIMER #### [address] Hemoglobin [Mass/volume] in BloodOrdered By: Charles Bazzi on 10-24-2023 Hemoglobin (Bld) [Mass/Vol] 11.3 g/dL Low 11.8-15.4 [facility] Comment on above: Performed By: #### C BC, BMP, BNP, HS TROP, PTT, PT, HEPATIC, LACTIC, CK, DDIMER #### [address] Leukocytes [#/volume] correc french for nucleated erythrocytes in Blood by Automated counOrdered By: Charles Bazzi on 10-24-2023 WBC corrected for nucl RBC Auto (Bld) [#/Vol] 4.9 10*3/uL 3.8-11.6 [facility] Leukocytes [#/volume] in Blo od by Automated countOrdered By: Charles Bazzi on 10-24-2023 WBC (Bld) [#/Vol] 4.9 10*3/uL Normal 3.8-11.6 [facility] Comment on above: Performed By: #### C BC, BMP, BNP, HS TROP, PTT, PT, HEPATIC, LACTIC, CK, DDIMER #### [facility] [address] Lipid Panelon 10-24-2023 LDL Cholesterol,Calculated 95 mg/dL Normal 0-100 [facility] Comment on above: Order Comment: Reaso n for Exam Hyperlipidemia Result Comment: LDL ATP III CLASSIFICATION LDL less than 100 mg/dL Optimal LDL 100-129 mg/dL Near or above optimal LDL 130-159 mg/dL Borderline high LDL 160-189 mg/dL High LDL greater than 189 mg/dL Very high Performed By: #### C BC, BMP, BNP, HS TROP, PTT, PT, HEPATIC, LACTIC, CK, DDIMER #### [facility] [address] Triglyceride w/Reflex 191 mg/dL High 0-149 [facility] Comment on above: Order Comment: Reaso n for Exam Hyperlipidemia Result Comment: TRIG ATP III CLASSIFICATION TRIG less than 150 mg/dL Normal TRIG 150-199 mg/dL Borderline high TRIG 200-500 mg/dL High TRIG greater than 500 mg/dL Very high Standard traceable to the Center for Disease Conrtrol and Prevention (CDC) test method. Performed By: #### C BC, BMP, BNP, HS TROP, PTT, PT, HEPATIC, LACTIC, CK, DDIMER #### [facility] [address] VLDL CHOLESTEROL 38 mg/dL Normal [facility] Comment on above: Order Comment: Reaso n for Exam Hyperlipidemia Performed By: #### C BC, BMP, BNP, HS TROP, PTT, PT, HEPATIC, LACTIC, CK, DDIMER #### [address] Lymphocytes [#/volume] in Bl ood by Automated countOrdered By: Charles Bazzi on 10-24-2023 Lymphocytes (Bld) [#/Vol] 1.0 10*3/uL Normal 1.00-4.8 [facility] Comment on above: Performed By: #### C BC, BMP, BNP, HS TROP, PTT, PT, HEPATIC, LACTIC, CK, DDIMER #### [address] Lymphocytes/100 leukocytes i n Blood by Automated countOrdered By: Charles Bazzi on 10-24-2023 Lymphocytes/100 WBC (Bld) 20.9 % Normal . [facility] Comment on above: Performed By: #### C BC, BMP, BNP, HS TROP, PTT, PT, HEPATIC, LACTIC, CK, DDIMER #### [address] MCH [Entitic mass] by Automa french countOrdered By: Charles Bazzi on 10-24-2023 MCH (RBC) [Entitic mass] 29.7 pg Normal 24.7-34.3 [facility] Comment on above: Performed By: #### C BC, BMP, BNP, HS TROP, PTT, PT, HEPATIC, LACTIC, CK, DDIMER #### [address] MCHC Auto (RBC) [Mass/Vol]Or dered By: Charles Bazzi on 10-24-2023 MCHC (RBC) [Mass/Vol] 33.1 g/dL 32.0-35.0 [facility] MCV [Entitic volume] by Auto mated countOrdered By: Charles Bazzi on 10-24-2023 MCV (RBC) [Entitic vol] 89.9 fL Normal 80-100 [facility] Comment on above: Performed By: #### C BC, BMP, BNP, HS TROP, PTT, PT, HEPATIC, LACTIC, CK, DDIMER #### [address] Neutrophils [#/volume] in Bl ood by Automated countOrdered By: Charles Bazzi on 10-24-2023 Neutrophils (Bld) [#/Vol] 2.9 10*3/uL Normal 1.8-7.7 [facility] Comment on above: Performed By: #### C BC, BMP, BNP, HS TROP, PTT, PT, HEPATIC, LACTIC, CK, DDIMER #### [facility] [address] No Panel InformationOrdered By: Charles Bazzi on 10-24-2023 Estimated GFR (CKD-EPI) > 60.0 mL/Min [facility] Creatinine Clearance (Chem N/A [facility] Nucleated erythrocytes [Pres ence] in Blood by Automated countOrdered By: Charles Bazzi on 10-24-2023 Nucleated RBC Auto Ql (Bld) 0.1 /100{WBC} 0-0.5 [facility] Platelet mean volume [Entiti c volume] in Blood by Automated countOrdered By: Charles Bazzi on 10-24-2023 Platelet mean volume (Bld) [Entitic vol] 6.6 fL Normal 6.3-10.7 [facility] Comment on above: Performed By: #### C BC, BMP, BNP, HS TROP, PTT, PT, HEPATIC, LACTIC, CK, DDIMER #### [facility] [address] Platelets [#/volume] in Bloo d by Automated countOrdered By: Charles Bazzi on 10-24-2023 Platelets (Bld) [#/Vol] 328 10*3/uL Normal 150-450 [facility] Comment on above: Performed By: #### C BC, BMP, BNP, HS TROP, PTT, PT, HEPATIC, LACTIC, CK, DDIMER #### [facility] [address] Potassium [Moles/volume] in Serum or PlasmaOrdered By: Charles Bazzi on 10-24-2023 Potassium [Moles/Vol] 4.3 mmol/L Normal 3.5-5.1 [facility] Comment on above: Order Comment: Reaso n for Exam Hyperlipidemia Performed By: #### C BC, BMP, BNP, HS TROP, PTT, PT, HEPATIC, LACTIC, CK, DDIMER #### [facility] [address] Protein [Mass/volume] in Ser um or PlasmaOrdered By: Charles Bazzi on 10-24-2023 Protein [Mass/Vol] 6.2 g/dL Low 6.4-8.9 [facility] Comment on above: Order Comment: Reaso n for Exam Hyperlipidemia Performed By: #### C BC, BMP, BNP, HS TROP, PTT, PT, HEPATIC, LACTIC, CK, DDIMER #### [facility] [address] Serum globulin measurement b y calculation (mass/volume)Ordered By: Charles Bazzi on 10-24-2023 Globulin (S) [Mass/Vol] 2.2 g/dL Normal [facility] Comment on above: Order Comment: Reaso n for Exam Hyperlipidemia Performed By: #### C BC, BMP, BNP, HS TROP, PTT, PT, HEPATIC, LACTIC, CK, DDIMER #### [facility] [address] [place] [address] Serum or plasma albumin/glob ulin mass ratioOrdered By: Charles Bazzi on 10-24-2023 Albumin/Globulin [Mass ratio] 1.8 {ratio} [facility] Comment on above: Order Comment: Reaso n for Exam Hyperlipidemia Performed By: #### C BC, BMP, BNP, HS TROP, PTT, PT, HEPATIC, LACTIC, CK, DDIMER #### [facility] [address] [place] [address] Serum or plasma anion gap de terminationOrdered By: Charles Bazzi on 10-24-2023 Anion gap [Moles/Vol] 9.7 mmol/L Normal 6.0-15.0 [facility] Comment on above: Order Comment: Reaso n for Exam Hyperlipidemia Performed By: #### C BC, BMP, BNP, HS TROP, PTT, PT, HEPATIC, LACTIC, CK, DDIMER #### [facility] [address] [place] [address] [place] Serum or plasma high density lipoprotein (HDL) cholesterol measurementOrdered By: Chrales Bazzi on 10-24-2023 Cholesterol in HDL [Mass/Vol] 54 mg/dL Normal 23-92 [facility] Comment on above: HDL CHOL ATP-III CLA SSIFICATION Cardiovascular RiskHDL > or equal to 60 mg/dL LOWHDL < 40 mg/dL HIGH Order Comment: Reaso n for Exam Hyperlipidemia Result Comment: HDL CHOL ATP-III CLASSIFICATION Cardiovascular Risk HDL > or equal to 60 mg/dL LOW HDL < 40 mg/dL HIGH Performed By: #### C BC, BMP, BNP, HS TROP, PTT, PT, HEPATIC, LACTIC, CK, DDIMER #### [facility] [address] Serum or plasma total choles terol/high density lipoprotein (HDL) cholesterol mass ratOrdered By: Charles Bazzi on 10-24-2023 Cholesterol.total/Chol esterol in HDL [Mass ratio] 3.5 {ratio} Normal <5.0 [facility] Comment on above: Order Comment: Reaso n for Exam Hyperlipidemia Performed By: #### C BC, BMP, BNP, HS TROP, PTT, PT, HEPATIC, LACTIC, CK, DDIMER #### [facility] [address] [place] [address] [place] Sodium [Moles/volume] in Ser um or PlasmaOrdered By: Charles Bazzi on 10-24-2023 Sodium [Moles/Vol] 142 mmol/L Normal 136-145 [facility] Comment on above: Order Comment: Reaso n for Exam Hyperlipidemia Performed By: #### C BC, BMP, BNP, HS TROP, PTT, PT, HEPATIC, LACTIC, CK, DDIMER #### [facility] [address] [place] [id number] [place] Thyrotropin [Units/volume] i n Serum or PlasmaOrdered By: Charles Bazzi on 10-24-2023 TSH Qn 2.33 m[IU]/L Normal 0.45-5.33 [facility] Comment on above: Order Comment: Reaso n for Exam Hyperlipidemia Result Comment: PERF ORMED BY: [facility] [address] [facility] [place] [address] PATHOLOGIST [employer] IN[employer] LYUDMILA GIANG M.D. Performed By: #### C BC, BMP, BNP, HS TROP, PTT, PT, HEPATIC, LACTIC, CK, DDIMER #### [facility] [address] [id number] [facility] Triglyceride [Mass/volume] i n Serum or PlasmaOrdered By: Charles Bazzi on 10-24-2023 Triglyceride [Mass/Vol] 191 mg/dL 0-149 [facility] Comment on above: TRIG ATP III CLASSIF ICATIONTRIG less than 150 mg/dL NormalTRIG 150-199 mg/dL Borderline highTRIG 200-500 mg/dL High TRIG greater than 500 mg/dL Very highStandard traceable to the Center for Disease Conrtrol and Prevention (CDC) test method. Urea nitrogen [Mass/volume] in Serum or PlasmaOrdered By: Charles Bazzi on 10-24-2023 Urea nitrogen [Mass/Vol] 21 mg/dL Normal 7-25 [facility] Comment on above: Order Comment: Reaso n for Exam Hyperlipidemia Performed By: #### C BC, BMP, BNP, HS TROP, PTT, PT, HEPATIC, LACTIC, CK, DDIMER #### [facility] [address] [id number] [facility] CNPNon 10-17-2023 CNPN Telephone (HEMASA) ----- EVAN GILL ([id number]) 1955 F Date Time Provider Department 10/17/23 COLLEEN SLOORIO HEMSOLITARIO During your visit today, we recorded the following information about you: Colleen Solorio RN 10/17/2023 1:55 PM Signed Email received that there is no residual tumor for Neel to be ordered on [id number]. Discussed with Dr Corona and he would like this added to [facility] [phone]. Request faxed to [facility] today. KAYA Sifuentes Tiffany G, RN 10/17/2023 3:08 PM Signed Call received from Sonia at [facility] pathology stating they haven't ordered Signatera before. Order signed and faxed to Neel as well as Sonia at [facility]. KAYA Sifuentes Tiffany G, RN 10/26/2023 1:51 PM Signed Call placed to Sonia to see if this has been sent out yet. She states it has not. Request faxed to [facility] pathology again, as well as the Neel order. KAYA Sifuentes Tiffany G, RN 10/27/2023 3:48 PM Signed Sonia calls back stating she looked into this a little further and she did send this specimen out on 10/18/23. KAYA Sifuentes Tiffany G, RN 11/02/2023 12:49 PM Signed Call placed to [facility] to follow up on results. They have not received results yet from Neel. Called and spoke with Daksha at [facility]. She states this testing is still in progress. Blood sample received 10/11, tissue sample received 10/18. Final report should be available in 3-4 wks from 10/18 if no repeat or redraws are needed (which would be 11/08-11/15). KAYA Sifuentes Tiffany G, RN 11/10/2023 11:28 AM Signed Neel results received and pt notified that this was negative. Colleen Solorio RN Allergies As of Date: 10/17/2023 (No Known Allergies) Date Reviewed: 10/10/2023 Reviewed by: Stacy Pérez MA - Fully Assessed Reason for Visit: Care Coordination [6711] Cmt: signatera Prescriptions as of 11/10/2023 - ibuprofen (MOTRIN) 400 mg tablet Take 1 tablet by mouth every 8 hours. - Bacillus coagulan-calcium carb (DIGESTIVE ADVANTAGE PROBIOTIC) 2 billion cell- 140 mg cap Take 1 capsule by mouth once daily. Patient should start on November 10, 2023. - oxyCODONE IR (ROXICODONE) 5 mg immediate release tablet Take 1 tablet by mouth every 6 hours as needed for up to 7 days. - acetaminophen (TYLENOL) 500 mg tablet Take 2 tablets by mouth every 8 hours. - nitroglycerin sublingual (NITROQUICK) 0.4 mg SL tablet Dissolve 1 tablet under the tongue as needed for chest pain, may repeat every 5 minutes if no relief up to 3 times. - Amoxicillin 500 mg tablet FOR DENTAL WORK - omeprazole (PRILOSEC) 40 mg capsule Take 40 mg by mouth once daily. - vitamin D3/vitamin K2, MK4, (K2 PLUS D3 ORAL) Take 1 Dose by mouth once daily. - compounded progesterone 50 mg capsule Take 150 mg by mouth daily at bedtime. - Testosterone 12.5 mg/ 1.25 gram (1 %) glpm Apply 2 Pump as directed once daily. 0.5 MIL - ondansetron orally disintegrating (ZOFRAN ODT) 8 mg disintegrating tablet Take 1 tablet by mouth every 8 hours as needed for nausea/vomiting. - prochlorperazine (COMPAZINE) 10 mg tablet Take 1 tablet by mouth every 6 hours as needed. - ondansetron (ZOFRAN) 8 mg tablet Take 1 tablet by mouth every 8 hours as needed for nausea/vomiting. - vortioxetine (TRINTELLIX) 10 mg tablet Take 10 mg by mouth once daily. - oxybutynin ER (DITROPAN XL) 15 mg 24 hr Extended Rel Tab Take 15 mg by mouth. - aspirin, enteric coated (ASPIRIN, ENTERIC COATED) 81 mg EC tablet Take 81 mg by mouth once daily. - docosahexaenoic acid/epa (FISH OIL ORAL) Take 2,000 mg by mouth two times a day. - calcium carbonate/vitamin d3(CALCIUM 600 WITH VITAMIN D3 600 MG (1,500 MG)-400 UNIT CAP) Take 1 tablet by mouth once daily. Facility-Administered Medications as of 11/10/2023 - ibuprofen 400 mg tab(s) (MOTRIN) - lactobacillus rhamnosus 10 billion cell (CULTURELLE) capsule - phosphorus 250 mg tab(s) (K PHOS NEUTRAL) - acetaminophen 1,000 mg tab(s) (TYLENOL) - HYDROmorphone 0.2 mg injection (DILAUDID) - NaCl 0.9% iv flush bag - vortioxetine 10 mg tab(s) (TRINTELLIX) - enoxaparin 40 mg injection (LOVENOX) - oxyCODONE IR 5-10 mg tab(s) (ROXICODONE) - ondansetron orally disintegrating 4 mg tab(s) (ZOFRAN ODT) - ondansetron (PF) 4 mg injection (ZOFRAN) - pantoprazole DR 40 mg tab(s) (PROTONIX) - trospium 20 mg tab(s) (SANCTURA) Problem List As Of Date 10/17/2023 Noted Resolved OSTEOARTHROS NOS-ANKLE [M19.079] 12/20/2005 Personal History of Malignant Melanoma of Skin *04/28/2009 Rectal cancer (HCC) [C20] 06/14/2023 Iron deficiency anemia, unspecified [D50.9] 07/06/2023 Atrial fibrillation (HCC) [I48.91] 08/09/2023 Essential hypertension [I10] 04/25/2017 GERD (gastroesophageal reflux disease) [K21.9] 08/09/2023 Hemorrhoids [K64.9] 08/09/2023 Hyperlipidemia [E78.5] 08/09/2023 Mixed anxiety depressive disorder [F41.8] (more content not included)... Normal [facility] Basophils Auto (Bld) [#/Vol] on 10-10-2023 Basophils (Bld) [#/Vol] 0.04 10*3/uL <0.11 [facility] Basophils/100 WBC Auto (Bld) on 10-10-2023 Basophils/100 WBC (Bld) 0.5 % [facility] Blood manual differential co mment interpretation narrativeon 10-10-2023 Manual differential comment Ankush (Bld) [Interp] Auto [facility] CBC W Auto Differential pane l (Bld)on 10-10-2023 Basophils (Bld) [#/Vol] 0.04 10*3/uL <0.11 k/uL [facility] Basophils/100 WBC (Bld) 0.5 % [facility] Differential cell count method Nom (Bld) Auto [facility] Eosinophils (Bld) [#/Vol] 0.52 10*3/uL High <0.46 k/uL [facility] Eosinophils/100 WBC (Bld) 7.1 % [facility] Erythrocyte distribution width (RBC) [Ratio] 15.2 % High 11.5 - 15.0 % [facility] Hematocrit (Bld) [Volume fraction] 35.1 % Low 36.0 - 46.0 % [facility] Hemoglobin (Bld) [Mass/Vol] 11.7 g/dL 11.5 - 15.5 g/dL [facility] Immature granulocytes (Bld) [#/Vol] 0.04 10*3/uL <0.10 k/uL [facility] Immature granulocytes/100 WBC (Bld) 0.5 % [facility] Lymphocytes (Bld) [#/Vol] 0.62 10*3/uL Low 1.00 - 4.00 k/uL [facility] Lymphocytes/100 WBC (Bld) 8.5 % [facility] MCH (RBC) [Entitic mass] 29.8 pg 26.0 - 34.0 pg [facility] MCHC (RBC) [Mass/Vol] 33.3 g/dL 30.5 - 36.0 g/dL [facility] MCV (RBC) [Entitic vol] 89.5 fL 80.0 - 100.0 fL [facility] Monocytes (Bld) [#/Vol] 0.62 10*3/uL <0.87 k/uL [facility] Monocytes/100 WBC (Bld) 8.5 % [facility] Neutrophils (Bld) [#/Vol] 5.49 10*3/uL 1.45 - 7.50 k/uL [facility] Neutrophils/100 WBC (Bld) 74.9 % [facility] Nucleated RBC (Bld) [#/Vol] <0.01 k/uL [facility] Nucleated RBC/100 WBC (Bld) [Ratio] 0.0 /100 WBC [facility] Platelet mean volume (Bld) [Entitic vol] 8.1 fL Low 9.0 - 12.7 fL [facility] Platelets (Bld) [#/Vol] 274 10*3/uL 150 - 400 k/uL [facility] RBC (Bld) [#/Vol] 3.92 10*6/uL 3.90 - 5.20 m/uL [facility] WBC (Bld) [#/Vol] 7.33 10*3/uL 3.70 - 11.00 k/uL [facility] Basophils (Bld) [#/Vol] 0.04 10*3/uL Normal <0.11 [facility] Comment on above: Order Comment: Speci men Type: BLOOD SPECIMEN Ordering Facility: [facility] Address: [address] [place] [address] Performed By: #### 2 4323-8 #### [facility] CLIA [id number] [address] [place] [address] Basophils/100 WBC (Bld) 0.5 % Normal [facility] Comment on above: Order Comment: Speci men Type: BLOOD SPECIMEN Ordering Facility: [facility] Address: [address] [place] [address] Performed By: #### 2 432-8 #### [facility] CLIA [id number] [address] [place] [address] Differential cell count method Nom (Bld) Auto Normal [facility] Comment on above: Order Comment: Speci men Type: BLOOD SPECIMEN Ordering Facility: [facility] Address: [address] [place] [address] Performed By: #### 2 432-8 #### [facility] CLIA [id number] [address] [place] [address] Eosinophils (Bld) [#/Vol] 0.52 10*3/uL High <0.46 [facility] Comment on above: Order Comment: Speci men Type: BLOOD SPECIMEN Ordering Facility: [facility] Address: [address] [place] [address] Performed By: #### 2 4323-8 #### [facility] CLIA [id number] [address] [place] [address] Eosinophils/100 WBC (Bld) 7.1 % Normal [facility] Comment on above: Order Comment: Speci men Type: BLOOD SPECIMEN Ordering Facility: [facility] Address: [address] [place] [address] Performed By: #### 2 4323-8 #### [facility] CLIA [id number] [address] [place] [address] Erythrocyte distribution width (RBC) [Ratio] 15.2 % High 11.5-15.0 [facility] Comment on above: Order Comment: Speci men Type: BLOOD SPECIMEN Ordering Facility: [facility] Address: [address] [place] [address] Performed By: #### 2 4323-8 #### [facility] CLIA [id number] [address] [place] [address] Hematocrit (Bld) [Volume fraction] 35.1 % Low 36.0-46.0 [facility] Comment on above: Order Comment: Speci men Type: BLOOD SPECIMEN Ordering Facility: [facility] Address: [address] [place] [address] Performed By: #### 2 4323-8 #### [facility] CLIA [id number] [address] [place] [address] Hemoglobin (Bld) [Mass/Vol] 11.7 g/dL Normal 11.5-15.5 [facility] Comment on above: Order Comment: Speci men Type: BLOOD SPECIMEN Ordering Facility: [facility] Address: [address] [place] [address] Performed By: #### 2 4323-8 #### [facility] CLIA [id number] [address] [place] [address] Immature granulocytes (Bld) [#/Vol] 0.04 10*3/uL Normal <0.10 [facility] Comment on above: Order Comment: Speci men Type: BLOOD SPECIMEN Ordering Facility: [facility] Address: [address] [place] [address] Performed By: #### 2 4323-8 #### [facility] CLIA [id number] [address] [place] [address] Immature granulocytes/100 WBC (Bld) 0.5 % Normal [facility] Comment on above: Order Comment: Speci men Type: BLOOD SPECIMEN Ordering Facility: [facility] Address: [address] [place] [address] Performed By: #### 2 4323-8 #### [facility] CLIA [id number] [address] [place] [address] Lymphocytes (Bld) [#/Vol] 0.62 10*3/uL Low 1.00-4.00 [facility] Comment on above: Order Comment: Speci men Type: BLOOD SPECIMEN Ordering Facility: [facility] Address: [address] [place] [address] Performed By: #### 2 4323-8 #### [facility] CLIA [id number] [address] [place] [address] Lymphocytes/100 WBC (Bld) 8.5 % Normal [facility] Comment on above: Order Comment: Speci men Type: BLOOD SPECIMEN Ordering Facility: [facility] Address: [address] [place] [address] Performed By: #### 2 4323-8 #### [facility] CLIA [id number] [address] [place] [address] MCH (RBC) [Entitic mass] 29.8 pg Normal 26.0-34.0 [facility] Comment on above: Order Comment: Speci men Type: BLOOD SPECIMEN Ordering Facility: [facility] Address: [address] [place] [address] Performed By: #### 2 4323-8 #### [facility] CLIA [id number] [address] [place] [address] MCHC (RBC) [Mass/Vol] 33.3 g/dL Normal 30.5-36.0 [facility] Comment on above: Order Comment: Speci men Type: BLOOD SPECIMEN Ordering Facility: [facility] Address: [address] [place] [address] Performed By: #### 2 4323-8 #### [facility] CLIA [id number] [address] [place] [address] MCV (RBC) [Entitic vol] 89.5 fL Normal 80.0-100.0 [facility] Comment on above: Order Comment: Speci men Type: BLOOD SPECIMEN Ordering Facility: [facility] Address: [address] [place] [address] Performed By: #### 2 4323-8 #### [facility] CLIA [id number] [address] [place] [address] Monocytes (Bld) [#/Vol] 0.62 10*3/uL Normal <0.87 [facility] Comment on above: Order Comment: Speci men Type: BLOOD SPECIMEN Ordering Facility: [facility] Address: [address] [place] [address] Performed By: #### 2 4323-8 #### [facility] CLIA [id number] [address] [place] [address] Monocytes/100 WBC (Bld) 8.5 % Normal [facility] Comment on above: Order Comment: Speci men Type: BLOOD SPECIMEN Ordering Facility: [facility] Address: [address] [place] [address] Performed By: #### 2 4323-8 #### [facility] CLIA [id number] [address] [place] [address] Neutrophils (Bld) [#/Vol] 5.49 10*3/uL Normal 1.45-7.50 [facility] Comment on above: Order Comment: Speci men Type: BLOOD SPECIMEN Ordering Facility: [facility] Address: [address] [place] [address] Performed By: #### 2 4323-8 #### [facility] CLIA [id number] [address] [place] [address] Neutrophils/100 WBC (Bld) 74.9 % Normal [facility] Comment on above: Order Comment: Speci men Type: BLOOD SPECIMEN Ordering Facility: [facility] Address: [facility] [place] [place] [address] Performed By: #### 2 4323-8 #### [facility] CLIA [id number] [address] [place] [address] Nucleated RBC (Bld) [#/Vol] 10*3/uL Normal <0.01 [facility] Comment on above: Order Comment: Speci men Type: BLOOD SPECIMEN Ordering Facility: [facility] Address: [address] [place] [address] Performed By: #### 2 4323-8 #### [facility] CLIA [id number] [address] [place] [address] Nucleated RBC/100 WBC (Bld) [Ratio] 0.0 /100 WBC Normal [facility] Comment on above: Order Comment: Speci men Type: BLOOD SPECIMEN Ordering Facility: [facility] Address: [address] [place] [address] Performed By: #### 2 4323-8 #### [facility] CLIA [id number] [address] [place] [address] Platelet mean volume (Bld) [Entitic vol] 8.1 fL Low 9.0-12.7 [facility] Comment on above: Order Comment: Speci men Type: BLOOD SPECIMEN Ordering Facility: [facility] Address: [address] [place] [address] Performed By: #### 2 4323-8 #### [facility] CLIA [id number] [address] [place] [address] Platelets (Bld) [#/Vol] 274 10*3/uL Normal 150-400 [facility] Comment on above: Order Comment: Speci men Type: BLOOD SPECIMEN Ordering Facility: [facility] Address: [address] [place] [address] Performed By: #### 2 4323-8 #### [facility] CLIA [id number] [address] [place] [address] RBC (Bld) [#/Vol] 3.92 10*6/uL Normal 3.90-5.20 [facility] Comment on above: Order Comment: Speci men Type: BLOOD SPECIMEN Ordering Facility: [facility] Address: [address] [place] [address] Performed By: #### 2 4323-8 #### [facility] CLIA [id number] [address] [place] [address] WBC (Bld) [#/Vol] 7.33 10*3/uL Normal 3.70-11.00 [facility] Comment on above: Order Comment: Speci men Type: BLOOD SPECIMEN Ordering Facility: [facility] Address: [address] [place] [address] Performed By: #### 2 4323-8 #### [facility] CLIA [id number] [address] [place] [address] CEA SerPl-mCncon 10-10-2023 Carcinoembryonic Ag [Mass/Vol] 2.0 ng/mL Normal <=2.9 [facility] Comment on above: Order Comment: Speci men Type: BLOOD SPECIMEN Ordering Facility: [facility] Address: [address] [place] [address] Result Comment: Carc inoembryonic antigen test is used as an aid in monitoring response to treatment or recurrence in patients with established colorectal, breast, lung, prostatic, pancreatic, and ovarian carcinomas. Clinical correlation is required. The Carcinoembryonic antigen test was performed using the [employer] DXI paramagnetic particle chemiluminescent immunoassay method. Results obtained with different assay methods or kits cannot be used interchangeably. Performed By: #### 5 7021-8 #### [facility] CLIA [id number] [address] [place] [address] CNOVon 10-10-2023 CNOV Office Visit (RADTSA ) ----- EVAN GILL ([id number]) 1955 F Date Time Provider Department 10/10/23 11:30 AM Del HUDSON During your visit today, we recorded the following information about you: Del Hudson MD 10/17/2023 8:42 AM Signed Radiation Oncology - Follow Up Note PATIENT [...] fractions ELAPSED TIME: 42 days. INTERVAL HISTORY: Since last appointment patient underwent resection. She is recovering well. No new problems or concerns. 08/25/2023 robotic laparoscopic colectomy. Palpable finding mid rectum. No liver or peritoneal findings intraoperatively. Pathology demonstrating: AMENDED REPORT DETAIL LAB Amended: 09/13/2023 3:21 PM This report is being amended to reflect a change in the Synoptic Report and Gross Description armijo. The changes are as follows: changed to tumor location in the Synoptic Report from Cannot be determined to Rectum / Entirely below anterior peritoneal reflection and added The ulcer is located entirely below the anterior peritoneal reflection to the Gross Description. Dr. Singer was notified of this change by e-mail on 09/13/2023. JEL 09/13/2023 Comment: Edited results: Previously reported on 08/31/2023 at 6:21 PM EST. FINAL DIAGNOSIS A. Sigmoid colon and rectum, resection: - No evidence of residual invasive adenocarcinoma (see synoptic report). - Fifteen lymph nodes, negative for malignancy (0/15). B. Additional distal margin, excision: - Segment of rectum with no diagnostic abnormality. JEL 08/30/2023 Amendment electronically signed by Oscar Marshall MD on 09/13/2023 at 3:24 PM Block for additional Biomarkers/Molecular studies LAB No evidence of residual invasive adenocarcinoma Synoptic Report COLON AND RECTUM: Resection, Including [...] 1, 8th Ed.) it is the managing physician?s responsibility to establish the final pathologic stage based upon all pertinent information, including but potentially not limited to this pathology report. TNM Descriptors y (post-treatment) pT Category pT0 pN Category pN0 . ALLERGIES No Known Allergies MEDICATIONS: acetaminophen (TYLENOL) 500 mg tablet Take 2 tablets by mouth every 8 hours. nitroglycerin sublingual (NITROQUICK) 0.4 mg SL tablet Dissolve 1 tablet under the tongue as needed for chest pain, may repeat every 5 minutes if no relief up to 3 times. Amoxicillin 500 mg tablet FOR DENTAL WORK [...] Pump as directed once daily. 0.5 MIL (more content not included)... Normal [facility] CNOV Office Visit (HEMASA ) ----- EVAN GILL ([id number]) 1955 F Date Time Provider Department 10/10/23 JAX DE LEÓN During your visit today, we recorded the following information about you: Jax De León LMT 10/10/2023 1:39 PM Signed Patient Name: Evan Gill : 1955 Referred For: chair massage Diagnosis: muscle soreness Chief Complaint: Pain Anxiety (pre): 2 Pain (pre): 3 Stress Level (pre): 2 Therapy Provided: Massage Therapy Area(s) Treated: entire back Anxiety (post): <1 Pain (post): 1 Stress Level (post): <1 Visit Outcome: Better Comments: relaxation massage Treatment Plan: consistent time Care Team contacted: N/A Signature: Jax De León LMT Date: October 10, 2023 Time: 1:37 PM Allergies As of Date: 10/10/2023 (No Known Allergies) Date Reviewed: 10/10/2023 Reviewed by: Stacy Pérez MA - Fully Assessed Primary Visit Diagnosis:Muscle soreness [M79.10] Prescriptions as of 10/10/2023 - acetaminophen (TYLENOL) 500 mg tablet Take 2 tablets by mouth every 8 hours. - nitroglycerin sublingual (NITROQUICK) 0.4 mg SL tablet Dissolve 1 tablet under the tongue as needed for chest pain, may repeat every 5 minutes if no relief up to 3 times. - Amoxicillin 500 mg tablet FOR DENTAL WORK - omeprazole (PRILOSEC) 40 mg capsule Take 40 mg by mouth once daily. - vitamin D3/vitamin K2, MK4, (K2 PLUS D3 ORAL) Take 1 Dose by mouth once daily. - compounded progesterone 50 mg capsule Take 150 mg by mouth daily at bedtime. - Testosterone 12.5 mg/ 1.25 gram (1 %) glpm Apply 2 Pump as directed once daily. 0.5 MIL - ondansetron orally disintegrating (ZOFRAN ODT) 8 mg disintegrating tablet Take 1 tablet by mouth every 8 hours as needed for nausea/vomiting. - prochlorperazine (COMPAZINE) 10 mg tablet Take 1 tablet by mouth every 6 hours as needed. - ondansetron (ZOFRAN) 8 mg tablet Take 1 tablet by mouth every 8 hours as needed for nausea/vomiting. - vortioxetine (TRINTELLIX) 10 mg tablet Take 10 mg by mouth once daily. - oxybutynin ER (DITROPAN XL) 15 mg 24 hr Extended Rel Tab Take 15 mg by mouth. - aspirin, enteric coated (ASPIRIN, ENTERIC COATED) 81 mg EC tablet Take 81 mg by mouth once daily. - docosahexaenoic acid/epa (FISH OIL ORAL) Take 2,000 mg by mouth two times a day. - calcium carbonate/vitamin d3(CALCIUM 600 WITH VITAMIN D3 600 MG (1,500 MG)-400 UNIT CAP) Take 1 tablet by mouth once daily. Problem List As Of Date 10/10/2023 Noted Resolved OSTEOARTHROS NOS-ANKLE [M19.079] 12/20/2005 Personal History of Malignant Melanoma of Skin *04/28/2009 Rectal cancer (HCC) [C20] 06/14/2023 Iron deficiency anemia, unspecified [D50.9] 07/06/2023 Atrial fibrillation (HCC) [I48.91] 08/09/2023 Essential hypertension [I10] 04/25/2017 GERD (gastroesophageal reflux disease) [K21.9] 08/09/2023 Hemorrhoids [K64.9] 08/09/2023 Hyperlipidemia [E78.5] 08/09/2023 Mixed anxiety depressive disorder [F41.8] 08/09/2023 Rectal adenocarcinoma (HCC) [C20] 08/25/2023 Ileostomy present (HCC) [Z93.2] 08/26/2023 Encounter for ostomy care education [Z71.89] 08/26/2023 08/29/2023 Small bowel obstruction (HCC) [K56.609] 08/31/2023 09/04/2023 Ileostomy bag changed (HCC) [Z43.2] 08/31/2023 Encounter Status:Closed by JAX DE LEÓN on 10/10/23 [facility] CNOVSPon 10-10-2023 CNOVSP Visit (SP) Office ([facility]) ----- EVAN GILL ([id number]) 1955 F Date Time Provider Department 10/10/23 10:45 AM TAPAN CORONA During your visit today, we recorded the following information about you: Temperature Pulse Respiration Blood pressure 98 degrees 92/minute 16/minute 122/66 Weight Height 63.7 kg 1.626 m Tapan Corona MD 10/10/2023 11:08 PM Signed PATIENT NAME: Evan Gill CLINIC NO.: [id number] ATTENDING PHYSICIAN: Tapan Corona MD DATE OF SERVICE: October 10, 2023 Some of the elements of this note have been copied from my previous progress note dated 07/05/2023. All the information has been reviewed carefully. [...] 5' 4.016 (1.63m) Wt 140 lb 6.9 oz (63.7kg) SpO2 100% BMI 24.09 kg/(m2). Wt 61.8 kg (136 lb 3.2 oz) [...] Value 08/31/2023 83 ALT (U/L) Date Value 0 (more content not included)... Normal [facility] Comprehensive metabolic 2000 panelon 10-10-2023 Albumin [Mass/Vol] 4.3 g/dL 3.9 - 4.9 g/dL [facility] ALP [Catalytic activity/Vol] 103 U/L 34 - 123 U/L [facility] ALT [Catalytic activity/Vol] 15 U/L 7 - 38 U/L [facility] Anion gap [Moles/Vol] 12 mmol/L 9 - 18 mmol/L [facility] AST [Catalytic activity/Vol] 13 U/L 13 - 35 U/L [facility] Bilirubin [Mass/Vol] 0.2 mg/dL 0.2 - 1 .3 mg/dL [facility] Calcium [Mass/Vol] 9.3 mg/dL 8.5 - 10. 2 mg/dL [facility] Chloride [Moles/Vol] 114 mmol/L High 97 - 10 5 mmol/L [facility] CO2 [Moles/Vol] 22 mmol/L 22 - 30 mmol/L [facility] Creatinine [Mass/Vol] 0.70 mg/dL 0.58 - 0.96 mg/dL [facility] Estimated Glomerular Filtration Rate 93 mL/min/1.73m >=60 mL/min/1.7 3m [facility] Glucose [Mass/Vol] 114 mg/dL High 74 - 99 mg/dL [facility] Potassium [Moles/Vol] 4.2 mmol/L 3.7 - 5.1 mmol/L [facility] Protein [Mass/Vol] 6.6 g/dL 6.3 - 8.0 g/dL [facility] Sodium [Moles/Vol] 148 mmol/L High 136 - 144 mmol/L [facility] Urea nitrogen [Mass/Vol] 22 mg/dL High 7 - 21 mg/dL [facility] Albumin [Mass/Vol] 4.3 g/dL Normal 3.9-4.9 [facility] Comment on above: Order Comment: Speci men Type: BLOOD SPECIMEN Ordering Facility: [facility] Address: [address] [place] [address] Performed By: #### 2 4323-8 #### [facility] CLIA [id number] [address] [place] [address] ALP [Catalytic activity/Vol] 103 U/L Normal 34-123 [facility] Comment on above: Order Comment: Speci men Type: BLOOD SPECIMEN Ordering Facility: [facility] Address: [address] [place] [address] Performed By: #### 2 4323-8 #### [facility] CLIA [id number] [address] [place] [address] ALT [Catalytic activity/Vol] 15 U/L Normal 7-38 [facility] Comment on above: Order Comment: Speci men Type: BLOOD SPECIMEN Ordering Facility: [facility] Address: [address] [place] [address] Performed By: #### 2 4323-8 #### [facility] CLIA [id number] [address] [place] [address] Anion gap [Moles/Vol] 12 mmol/L Normal 9-18 [facility] Comment on above: Order Comment: Speci men Type: BLOOD SPECIMEN Ordering Facility: [facility] Address: [address] [id number] Performed By: #### 2 4323-8 #### [facility] CLIA [id number] [address] [place] [address] AST [Catalytic activity/Vol] 13 U/L Normal 13-35 [facility] Comment on above: Order Comment: Speci men Type: BLOOD SPECIMEN Ordering Facility: [facility] Address: [address] [place] [address] Performed By: #### 2 4323-8 #### [facility] CLIA [id number] [address] [place] [address] Bilirubin [Mass/Vol] 0.2 mg/dL Normal 0.2-1.3 [facility] Comment on above: Order Comment: Speci men Type: BLOOD SPECIMEN Ordering Facility: [facility] Address: [address] [place] [address] Performed By: #### 2 4323-8 #### [facility] CLIA [id number] [address] [place] [address] Calcium [Mass/Vol] 9.3 mg/dL Normal 8.5-10.2 [facility] Comment on above: Order Comment: Speci men Type: BLOOD SPECIMEN Ordering Facility: [facility] Address: [address] [place] [address] Performed By: #### 2 4323-8 #### [facility] CLIA [id number] [address] [place] [address] Chloride [Moles/Vol] 114 mmol/L High 97-105 [facility] Comment on above: Order Comment: Speci men Type: BLOOD SPECIMEN Ordering Facility: [facility] Address: [address] [place] [address] Performed By: #### 2 4323-8 #### [facility] CLIA [id number] [address] [place] [address] CO2 [Moles/Vol] 22 mmol/L Normal 22-30 [facility] Comment on above: Order Comment: Speci men Type: BLOOD SPECIMEN Ordering Facility: [facility] Address: [address] [place] [address] Performed By: #### 2 4323-8 #### [facility] CLIA [id number] [address] [place] [address] Creatinine [Mass/Vol] 0.70 mg/dL Normal 0.58-0.96 [facility] Comment on above: Order Comment: Speci men Type: BLOOD SPECIMEN Ordering Facility: [facility] Address: [address] [place] [address] Performed By: #### 2 4323-8 #### [facility] CLIA [id number] [address] [place] [address] Creatinine and Glomerular filtration rate.predicted panel (S/P/Bld) 93 mL/min/1.73m??? Normal >=60 [facility] Comment on above: Order Comment: Speci men Type: BLOOD SPECIMEN Ordering Facility: [facility] Address: [address] [place] [address] Result Comment: Farhana mated Glomerular Filtration Rate [...] actual GFR. Performed By: #### 2 4323-8 #### [facility] CLIA [id number] [address] [place] [address] Glucose [Mass/Vol] 114 mg/dL High 74-99 [facility] Comment on above: Order Comment: Speci men Type: BLOOD SPECIMEN Ordering Facility: [facility] Address: [address] [id number] Result Comment: The [place] [employer] (ADA) provides guidance for cutoff values for fasting glucose and random glucose. The ADA defines fasting as no caloric intake for at least 8 hours. Fasting plasma glucose results between 100 to 125 mg/dL indicate increased risk for diabetes (prediabetes). Fasting plasma glucose results greater than or equal to 126 mg/dL meet the criteria for diagnosis of diabetes. In the absence of unequivocal hyperglycemia, results should be confirmed by repeat testing. In a patient with classic symptoms of hyperglycemia or hyperglycemic crisis, random plasma glucose results greater than or equal to 200 mg/dL meet the criteria for diagnosis of diabetes. Reference: Standards of Medical Care in Diabetes 2016, [place] [employer]. Diabetes Care. 2016.39(Suppl 1). Performed By: #### 2 4323-8 #### [facility] CLIA [id number] [address] [place] [address] Potassium [Moles/Vol] 4.2 mmol/L Normal 3.7-5.1 [facility] Comment on above: Order Comment: Speci men Type: BLOOD SPECIMEN Ordering Facility: [facility] Address: [address] [place] [address] Performed By: #### 2 4323-8 #### [facility] CLIA [id number] [address] [place] [address] Protein [Mass/Vol] 6.6 g/dL Normal 6.3-8.0 [facility] Comment on above: Order Comment: Speci men Type: BLOOD SPECIMEN Ordering Facility: [facility] Address: [address] [place] [address] Performed By: #### 2 4323-8 #### [facility] CLIA [id number] [address] [place] [address] Sodium [Moles/Vol] 148 mmol/L High 136-144 [facility] Comment on above: Order Comment: Speci men Type: BLOOD SPECIMEN Ordering Facility: [facility] Address: [address] [place] [address] Performed By: #### 2 4323-8 #### [facility] CLIA [id number] [address] [place] [address] Urea nitrogen [Mass/Vol] 22 mg/dL High 7-21 [facility] Comment on above: Order Comment: Speci men Type: BLOOD SPECIMEN Ordering Facility: [facility] Address: [address] [place] [address] Performed By: #### 2 4323-8 #### [facility] CLIA [id number] [address] [place] [address] Eosinophils/100 WBC Auto (Bl d)on 10-10-2023 Eosinophils/100 WBC (Bld) 7.1 % [facility] Erythrocyte distribution wid th Auto (RBC) [Ratio]on 10-10-2023 Erythrocyte distribution width (RBC) [Ratio] 15.2 % 11.5-15.0 [facility] Hematocrit Auto (Bld) [Volum e fraction]on 10-10-2023 Hematocrit (Bld) [Volume fraction] 35.1 % 36.0-46.0 [facility] Hemoglobin [Mass/volume] in Bloodon 10-10-2023 Hemoglobin (Bld) [Mass/Vol] 11.7 g/dL 11.5-15.5 [facility] - Chemistry and C hemistry - challengeon 10-10-2023 Albumin [Mass/Vol] 4.3 g/dL 3.9-4.9 [facility] ALP [Catalytic activity/Vol] 103 U/L 34-123 [facility] ALT [Catalytic activity/Vol] 15 U/L 7-38 [facility] AST [Catalytic activity/Vol] 13 U/L 13-35 [facility] Bilirubin [Mass/Vol] 0.2 mg/dL 0.2-1.3 [facility] Calcium [Mass/Vol] 9.3 mg/dL 8.5-10.2 [facility] Chloride [Moles/Vol] 114 mmol/L 97-105 [facility] CO2 [Moles/Vol] 22 mmol/L 22-30 [facility] Creatinine [Mass/Vol] 0.70 mg/dL 0.58-0.96 [facility] Glucose [Mass/Vol] 114 mg/dL 74-99 [facility] Comment on above: The [place] Diab[employer] s Association (ADA) provides guidance for [...] Standards of Medical Care in Diabetes 2016, [place] [employer]. Diabetes Care. 2016.39(Suppl 1). Potassium [Moles/Vol] 4.2 mmol/L 3.7-5.1 [facility] Sodium [Moles/Vol] 148 mmol/L 136-144 [facility] Urea nitrogen [Mass/Vol] 22 mg/dL 7-21 [facility] - Hematology and Cell countson 10-10-2023 Eosinophils (Bld) [#/Vol] 0.52 10*3/uL <0.46 [facility] Immature granulocytes (Bld) [#/Vol] 0.04 10*3/uL <0.10 [facility] Immature granulocytes/100 WBC (Bld) 0.5 % [facility] Leukocytes [#/volume] correc french for nucleated erythrocytes in Blood by Automated counon 10-10-2023 WBC corrected for nucl RBC Auto (Bld) [#/Vol] 7.33 k/uL 3.70-11.00 [facility] Lymphocytes Auto (Bld) [#/Vo l]on 10-10-2023 Lymphocytes (Bld) [#/Vol] 0.62 10*3/uL 1.00-4.00 [facility] Lymphocytes/100 WBC Auto (Bl d)on 10-10-2023 Lymphocytes/100 WBC (Bld) 8.5 % [facility] MCH Auto (RBC) [Entitic mass ]on 10-10-2023 MCH (RBC) [Entitic mass] 29.8 pg 26.0-34.0 [facility] MCHC Auto (RBC) [Mass/Vol]on 10-10-2023 MCHC (RBC) [Mass/Vol] 33.3 g/dL 30.5-36.0 [facility] MCV Auto (RBC) [Entitic vol] on 10-10-2023 MCV (RBC) [Entitic vol] 89.5 fL 80.0-100.0 [facility] MISC SEND OUT TST 1on 2023 MISC SCAN TEST RESULTS 1 View results in Scanned Documents link when available Normal [facility] Comment on above: Order Comment: Mason simpson Type: BLOOD SPECIMEN Ordering Facility: [facility] Address: [address] [place] [address] Performed By: #### M ISC1 #### NON-INTERFACED REF LABS CLIA SEE SCANNED RESULTS REFERRAL LAB 1 Neel Normal [facility] Comment on above: Order Comment: Mason simpson Type: BLOOD SPECIMEN Ordering Facility: [facility] Address: [address] [place] [address] Performed By: #### M ISC1 #### NON-INTERFACED REF LABS CLIA SEE SCANNED RESULTS TEST 1 [place] Normal [facility] Comment on above: Order Comment: Mason simpson Type: BLOOD SPECIMEN Ordering Facility: [facility] Address: [address] [place] [address] Performed By: #### M ISC1 #### NON-INTERFACED REF LABS CLIA SEE SCANNED RESULTS Monocytes Auto (Bld) [#/Vol] on 10-10-2023 Monocytes (Bld) [#/Vol] 0.62 10*3/uL <0.87 [facility] Monocytes/100 WBC Auto (Bld) on 10-10-2023 Monocytes/100 WBC (Bld) 8.5 % [facility] Neutrophils Auto (Bld) [#/Vo l]on 10-10-2023 Neutrophils (Bld) [#/Vol] 5.49 10*3/uL 1.45-7.50 [facility] Neutrophils/100 WBC Auto (Bl d)on 10-10-2023 Neutrophils/100 WBC (Bld) 74.9 % [facility] No Panel Informationon 10-09 Estimated GFR (CKD-EPI) 93 mL/min/1.73m??? >=60 [facility] Comment on above: Estimated Glomerular Filtration Rate [...] 10-10-2023 Nucleated RBC (Bld) [#/Vol] 10*3/uL <0.01 [facility] Nucleated erythrocytes [Pres ence] in Blood by Automated counton 10-10-2023 Nucleated RBC Auto Ql (Bld) 0.0 /100{WBC} [facility] Platelet mean volume Auto (B ld) [Entitic vol]on 10-10-2023 Platelet mean volume (Bld) [Entitic vol] 8.1 fL 9.0-12.7 [facility] Platelets Auto (Bld) [#/Vol] on 10-10-2023 Platelets (Bld) [#/Vol] 274 10*3/uL 150-400 [facility] Protein [Mass/volume] in Ser um or Plasmaon 10-10-2023 Protein [Mass/Vol] 6.6 g/dL 6.3-8.0 [facility] RBC Auto (Bld) [#/Vol]on RBC (Bld) [#/Vol] 3.92 10*6/uL 3.90-5.20 [facility] Serum or plasma anion gap de terminationon 10-10-2023 Anion gap [Moles/Vol] 12 mmol/L 9-18 [facility] Basic Metabolic Panelon 09-08 Creatinine Clr Calc Pharmacy 61.17 Normal [facility] Comment on above: Result Comment: PERF ORMED BY: [place] [address] PATHOLOGIST SOCIAL WORK INSTRUCTOR LYUDMILA GIANG M.D. Performed By: #### C BC, BMP, BNP, HS TROP, PTT, PT, HEPATIC, LACTIC, CK, DDIMER #### [facility] [address] [place] [address] GFR/1.73 sq M.predicted MDRD (S/P/Bld) [Vol rate/Area] mL/min/{1.73_m2} Normal [facility] Comment on above: Performed By: #### C BC, BMP, BNP, HS TROP, PTT, PT, HEPATIC, LACTIC, CK, DDIMER #### [facility] [address] [place] [address] [place] Calcium [Mass/volume] in Ser um or PlasmaOrdered By: Miguel Ángel Delgadillo on 10-01-2023 Calcium [Mass/Vol] 8.7 mg/dL Normal 8.6-10.3 [facility] Comment on above: Performed By: #### C BC, BMP, BNP, HS TROP, PTT, PT, HEPATIC, LACTIC, CK, DDIMER #### [address] Carbon dioxide, total [Moles /volume] in Serum or PlasmaOrdered By: Miguel Ángel Delgadillo on 10-01-2023 CO2 [Moles/Vol] 29.6 mmol/L Normal 21.0-31.0 [facility] Comment on above: Performed By: #### C BC, BMP, BNP, HS TROP, PTT, PT, HEPATIC, LACTIC, CK, DDIMER #### [place] [address] [place] Chloride [Moles/volume] in S jeevan or PlasmaOrdered By: Miguel Ángel Delgadillo on 10-01-2023 Chloride [Moles/Vol] 108 mmol/L High 98-107 [facility] Comment on above: Performed By: #### C BC, BMP, BNP, HS TROP, PTT, PT, HEPATIC, LACTIC, CK, DDIMER #### [facility] [address] [place] [address] [place] Creatinine [Mass/volume] in Serum or PlasmaOrdered By: Miguel Ángel Delgadillo on 10-01-2023 Creatinine [Mass/Vol] 0.66 mg/dL Normal 0.60-1.20 [facility] Comment on above: Performed By: #### C BC, BMP, BNP, HS TROP, PTT, PT, HEPATIC, LACTIC, CK, DDIMER #### [facility] [address] Erythrocyte distribution wid th [Ratio] by Automated countOrdered By: Miguel Ángel Delgadillo on 10-01-2023 Erythrocyte distribution width (RBC) [Ratio] 16.1 % High 11.9-15.3 [facility] Comment on above: Performed By: #### C BC, BMP, BNP, HS TROP, PTT, PT, HEPATIC, LACTIC, CK, DDIMER #### [facility] [address] Erythrocytes [#/volume] in B lood by Automated countOrdered By: Miguel Ángel Delgadillo on 10-01-2023 RBC (Bld) [#/Vol] 3.47 10*6/uL Low 3.60-5.00 [facility] Comment on above: Performed By: #### C BC, BMP, BNP, HS TROP, PTT, PT, HEPATIC, LACTIC, CK, DDIMER #### [facility] [address] Glucose [Mass/volume] in Ser um or PlasmaOrdered By: Miguel Ángel Delgadillo on 10-01-2023 Glucose [Mass/Vol] 93 mg/dL Normal 70-100 [facility] Comment on above: ADA recommended refe rence rangeRandom Glucose Reference Range is dependent on time and content of last meal. Glucose of more than 200 mg/dL in a nonstressed, ambulatory subject supports the diagnosis of Diabetes Mellitus. Result Comment: [place] om Glucose Reference Range is dependent on time and content of last meal. Glucose of more than 200 mg/dL in a nonstressed, ambulatory subject supports the diagnosis of Diabetes Mellitus. ADA recommended reference range Performed By: #### C BC, BMP, BNP, HS TROP, PTT, PT, HEPATIC, LACTIC, CK, DDIMER #### [facility] [address] Hematocrit [Volume Fraction] of Blood by Automated countOrdered By: Miguel Ángel Delgadillo on 10-01-2023 Hematocrit (Bld) [Volume fraction] 30.5 % Low 34.0-46.4 [facility] Comment on above: Performed By: #### C BC, BMP, BNP, HS TROP, PTT, PT, HEPATIC, LACTIC, CK, DDIMER #### [address] Hemoglobin [Mass/volume] in BloodOrdered By: Miguel Ángel Delgadillo on 10-01-2023 Hemoglobin (Bld) [Mass/Vol] 10.3 g/dL Low 11.8-15.4 [facility] Comment on above: Performed By: #### C BC, BMP, BNP, HS TROP, PTT, PT, HEPATIC, LACTIC, CK, DDIMER #### [address] Hemogram CBC Without Diffon 10-01-2023 Mean Corpuscular HGB Conc 33.9 g/dL Normal 32.0-35.0 [facility] Comment on above: Performed By: #### C BC, BMP, BNP, HS TROP, PTT, PT, HEPATIC, LACTIC, CK, DDIMER #### [address] WBC (Bld) [#/Vol] 4.9 10*3/uL Normal 3.8-11.6 [facility] Comment on above: Performed By: #### C BC, BMP, BNP, HS TROP, PTT, PT, HEPATIC, LACTIC, CK, DDIMER #### [address] Leukocytes [#/volume] correc french for nucleated erythrocytes in Blood by Automated counOrdered By: Miguel Ángel Delgadillo on 10-01-2023 WBC corrected for nucl RBC Auto (Bld) [#/Vol] 4.9 10*3/uL 3.8-11.6 [facility] MCH [Entitic mass] by Automa french countOrdered By: Miguel Ángel Delgadillo on 10-01-2023 MCH (RBC) [Entitic mass] 29.8 pg Normal 24.7-34.3 [facility] Comment on above: Performed By: #### C BC, BMP, BNP, HS TROP, PTT, PT, HEPATIC, LACTIC, CK, DDIMER #### [facility] [address] [place] [address] MCHC Auto (RBC) [Mass/Vol]Or dered By: Miguel Ángel Juarezforrest on 10-01-2023 MCHC (RBC) [Mass/Vol] 33.9 g/dL 32.0-35.0 [facility] MCV [Entitic volume] by Auto mated countOrdered By: Miguel Ángel Juarezforrest on 10-01-2023 MCV (RBC) [Entitic vol] 87.8 fL Normal 80-100 [facility] Comment on above: Performed By: #### C BC, BMP, BNP, HS TROP, PTT, PT, HEPATIC, LACTIC, CK, DDIMER #### [address] No Panel InformationOrdered By: Miguel Ángel Karenkunal on 10-01-2023 Estimated GFR (CKD-EPI) > 60.0 mL/Min [facility] Creatinine Clearance (Chem 61.17 [facility] Platelet mean volume [Entiti c volume] in Blood by Automated countOrdered By: Celinealtagracia Karenkunal on 10-01-2023 Platelet mean volume (Bld) [Entitic vol] 6.8 fL Normal 6.3-10.7 [facility] Comment on above: Result Comment: PERF ORMED BY: [place] [address] PATHOLOGIST SOCIAL WORK INSTRUCTOR LYUDMILA GIANG M.D. Performed By: #### C BC, BMP, BNP, HS TROP, PTT, PT, HEPATIC, LACTIC, CK, DDIMER #### [address] Platelets [#/volume] in Bloo d by Automated countOrdered By: Samiastella Karenkunal on 10-01-2023 Platelets (Bld) [#/Vol] 257 10*3/uL Normal 150-450 [facility] Comment on above: Performed By: #### C BC, BMP, BNP, HS TROP, PTT, PT, HEPATIC, LACTIC, CK, DDIMER #### [facility] [address] [place] [address] Potassium [Moles/volume] in Serum or PlasmaOrdered By: Samiastella Annforrest on 10-01-2023 Potassium [Moles/Vol] 4.1 mmol/L Normal 3.5-5.1 [facility] Comment on above: Performed By: #### C BC, BMP, BNP, HS TROP, PTT, PT, HEPATIC, LACTIC, CK, DDIMER #### [facility] [address] Serum or plasma anion gap de terminationOrdered By: Samiastella Annforrest on 10-01-2023 Anion gap [Moles/Vol] 8.5 mmol/L Normal 6.0-15.0 [facility] Comment on above: Performed By: #### C BC, BMP, BNP, HS TROP, PTT, PT, HEPATIC, LACTIC, CK, DDIMER #### [facility] [address] Sodium [Moles/volume] in Ser um or PlasmaOrdered By: Samiastella Karenkunal on 10-01-2023 Sodium [Moles/Vol] 142 mmol/L Normal 136-145 [facility] Comment on above: Performed By: #### C BC, BMP, BNP, HS TROP, PTT, PT, HEPATIC, LACTIC, CK, DDIMER #### [facility] [address] Urea nitrogen [Mass/volume] in Serum or PlasmaOrdered By: Samiastella Karenkunal on 10-01-2023 Urea nitrogen [Mass/Vol] 10 mg/dL Normal 7-25 [facility] Comment on above: Performed By: #### C BC, BMP, BNP, HS TROP, PTT, PT, HEPATIC, LACTIC, CK, DDIMER #### [facility] [address] [place] [address] [place] Alanine aminotransferase [En zymatic activity/volume] in Serum or PlasmaOrdered By: Patrice Springer on 09-30-2023 ALT [Catalytic activity/Vol] 15 U/L Normal 7-52 [facility] Comment on above: Performed By: #### C BC, BMP, BNP, HS TROP, PTT, PT, HEPATIC, LACTIC, CK, DDIMER #### [address] Albumin [Mass/volume] in Ser um or Plasma by Bromocresol green (BCG) dye binding methoOrdered By: Patrice Springer on 09-30-2023 Albumin BCG dye [Mass/Vol] 4.1 g/dL 3.5-5.7 [facility] Alkaline phosphatase [Enzyma tic activity/volume] in Serum or PlasmaOrdered By: Patrice Springer on 09-30-2023 ALP [Catalytic activity/Vol] 68 U/L Normal 34-104 [facility] Comment on above: Performed By: #### C BC, BMP, BNP, HS TROP, PTT, PT, HEPATIC, LACTIC, CK, DDIMER #### [address] Aspartate aminotransferase [ Enzymatic activity/volume] in Serum or PlasmaOrdered By: Patrice Springer on 09-30-2023 AST [Catalytic activity/Vol] 19 U/L Normal 13-39 [facility] Comment on above: Performed By: #### C BC, BMP, BNP, HS TROP, PTT, PT, HEPATIC, LACTIC, CK, DDIMER #### [address] Automated basophil %Ordered By: Patrice Springer on 09-30-2023 Basophils/100 WBC (Bld) 1.2 % Normal . [facility] Comment on above: Performed By: #### C BC, BMP, BNP, HS TROP, PTT, PT, HEPATIC, LACTIC, CK, DDIMER #### [address] Automated basophil countOrde red By: Patrice Springer on 09-30-2023 Basophils (Bld) [#/Vol] 0.1 10*3/uL Normal 0.0-0.2 [facility] Comment on above: Result Comment: PERF ORMED BY: [place] [address] PATHOLOGIST SOCIAL WORK INSTRUCTOR LYUDMILA GIANG M.D. Performed By: #### C BC, BMP, BNP, HS TROP, PTT, PT, HEPATIC, LACTIC, CK, DDIMER #### [address] Automated blood monocyte cou ntOrdered By: Patricealvin Springer on 09-30-2023 Monocytes (Bld) [#/Vol] 0.8 10*3/uL Normal 0.0-0.8 [facility] Comment on above: Performed By: #### C BC, BMP, BNP, HS TROP, PTT, PT, HEPATIC, LACTIC, CK, DDIMER #### [address] Automated eosinophil %Ordere d By: Patrice Springer on 09-30-2023 Eosinophils/100 WBC (Bld) 7.3 % Normal . [facility] Comment on above: Performed By: #### C BC, BMP, BNP, HS TROP, PTT, PT, HEPATIC, LACTIC, CK, DDIMER #### [address] Automated eosinophil countOr dered By: Patrice Springer on 09-30-2023 Eosinophils (Bld) [#/Vol] 0.7 10*3/uL High 0.0-0.45 [facility] Comment on above: Performed By: #### C BC, BMP, BNP, HS TROP, PTT, PT, HEPATIC, LACTIC, CK, DDIMER #### [address] Automated monocyte %Ordered By: Patrice Springer on 09-30-2023 Monocytes/100 WBC (Bld) 8.0 % Normal . [facility] Comment on above: Performed By: #### C BC, BMP, BNP, HS TROP, PTT, PT, HEPATIC, LACTIC, CK, DDIMER #### [address] Automated neutrophil %Ordere d By: Patrice Springer on 09-30-2023 Neutrophils/100 WBC (Bld) 71.5 % Normal . [facility] Comment on above: Performed By: #### C BC, BMP, BNP, HS TROP, PTT, PT, HEPATIC, LACTIC, CK, DDIMER #### [facility] [address] Basic Metabolic Panelon 09-08 Creatinine Clr Calc Pharmacy 56.50 Normal [facility] Comment on above: Performed By: #### C BC, BMP, BNP, HS TROP, PTT, PT, HEPATIC, LACTIC, CK, DDIMER #### [facility] [address] GFR/1.73 sq M.predicted MDRD (S/P/Bld) [Vol rate/Area] mL/min/{1.73_m2} Normal [facility] Comment on above: Performed By: #### C BC, BMP, BNP, HS TROP, PTT, PT, HEPATIC, LACTIC, CK, DDIMER #### [facility] [address] Bilirubin.direct [Mass/volum e] in Serum or PlasmaOrdered By: Patrice Springer on 09-30-2023 Bilirubin.direct [Mass/Vol] 0.10 mg/dL 0.03-0.18 [facility] Bilirubin.total [Mass/volume ] in Serum or PlasmaOrdered By: Patrice Springer on 09-30-2023 Bilirubin [Mass/Vol] 0.5 mg/dL Normal 0.3-1.0 [facility] Comment on above: Performed By: #### C BC, BMP, BNP, HS TROP, PTT, PT, HEPATIC, LACTIC, CK, DDIMER #### [facility] [address] abdomen pelvis wo conon 0 09-30-2023 CT abdomen pelvis wo [facility] [place] [address] CT Scan Report Signed Patient: Evan Gill MR#: [id number] : 1955 Acct:[id number] Age/Sex: 68 / F ADM Date: 09/30/23 Loc: Room: [address] [place] [address] Type: ADM IN Attending Dr: Tim Garduno MD Copies to: DO Tim Starks MD Ordering Provider: Patrice Springer DO Date of Service: 09/30/23 CT/CT abdomen [...] Cameron Lares M.D.09/30/2023 9:24 AM Dictation Location: [place] [address] Transcribed By: [facility] 09/30/23 0924 Dictated By: Cameron Lares DO 09/30/2315 Signed By: 09/30/23923 Normal [facility] Calcium [Mass/volume] in Ser um or PlasmaOrdered By: Patrice Springer on 09-30-2023 Calcium [Mass/Vol] 9.8 mg/dL Normal 8.6-10.3 [facility] Comment on above: Performed By: #### C BC, BMP, BNP, HS TROP, PTT, PT, HEPATIC, LACTIC, CK, DDIMER #### [facility] [address] Carbon dioxide, total [Moles /volume] in Serum or PlasmaOrdered By: Patrice Springer on 09-30-2023 CO2 [Moles/Vol] 25.6 mmol/L Normal 21.0-31.0 [facility] Comment on above: Performed By: #### C BC, BMP, BNP, HS TROP, PTT, PT, HEPATIC, LACTIC, CK, DDIMER #### [facility] [address] Chloride [Moles/volume] in S jeevan or PlasmaOrdered By: Patrice Springer on 09-30-2023 Chloride [Moles/Vol] 105 mmol/L Normal 98-107 [facility] Comment on above: Performed By: #### C BC, BMP, BNP, HS TROP, PTT, PT, HEPATIC, LACTIC, CK, DDIMER #### [address] Complete Blood Count Auto Di ffon 09-30-2023 Mean Corpuscular HGB Conc 33.3 g/dL Normal 32.0-35.0 [facility] Comment on above: Performed By: #### C BC, BMP, BNP, HS TROP, PTT, PT, HEPATIC, LACTIC, CK, DDIMER #### [facility] [address] [place] [address] [place] Monocytes/100 WBC (Bld) 15.40 % Normal 0.00-20.00 [facility] Comment on above: Performed By: #### C BC, BMP, BNP, HS TROP, PTT, PT, HEPATIC, LACTIC, CK, DDIMER #### [facility] [address] NRBC% 0.1 /100{WBC} Normal 0-0.5 [facility] Comment on above: Performed By: #### C BC, BMP, BNP, HS TROP, PTT, PT, HEPATIC, LACTIC, CK, DDIMER #### [facility] [address] Creatinine [Mass/volume] in Serum or PlasmaOrdered By: Patrice Springer on 09-30-2023 Creatinine [Mass/Vol] 0.72 mg/dL Normal 0.60-1.20 [facility] Comment on above: Performed By: #### C BC, BMP, BNP, HS TROP, PTT, PT, HEPATIC, LACTIC, CK, DDIMER #### [address] Erythrocyte distribution wid th [Ratio] by Automated countOrdered By: Patrice Springer on 09-30-2023 Erythrocyte distribution width (RBC) [Ratio] 16.4 % High 11.9-15.3 [facility] Comment on above: Performed By: #### C BC, BMP, BNP, HS TROP, PTT, PT, HEPATIC, LACTIC, CK, DDIMER #### [address] Erythrocytes [#/volume] in B lood by Automated countOrdered By: Patrice Springer on 09-30-2023 RBC (Bld) [#/Vol] 4.35 10*6/uL Normal 3.60-5.00 [facility] Comment on above: Performed By: #### C BC, BMP, BNP, HS TROP, PTT, PT, HEPATIC, LACTIC, CK, DDIMER #### [address] Glucose [Mass/volume] in Ser um or PlasmaOrdered By: Patrice Springer on 09-30-2023 Glucose [Mass/Vol] 111 mg/dL High 70-100 [facility] Comment on above: ADA recommended refe rence rangeRandom Glucose Reference Range is dependent on time and content of last meal. Glucose of more than 200 mg/dL in a nonstressed, ambulatory subject supports the diagnosis of Diabetes Mellitus. Result Comment: [facility] Glucose Reference Range is dependent on time and content of last meal. Glucose of more than 200 mg/dL in a nonstressed, ambulatory subject supports the diagnosis of Diabetes Mellitus. ADA recommended reference range Performed By: #### C BC, BMP, BNP, HS TROP, PTT, PT, HEPATIC, LACTIC, CK, DDIMER #### [facility] [address] Hematocrit [Volume Fraction] of Blood by Automated countOrdered By: Patrice Springer on 09-30-2023 Hematocrit (Bld) [Volume fraction] 38.1 % Normal 34.0-46.4 [facility] Comment on above: Performed By: #### C BC, BMP, BNP, HS TROP, PTT, PT, HEPATIC, LACTIC, CK, DDIMER #### [address] Hemoglobin [Mass/volume] in BloodOrdered By: Patrice Springer on 09-30-2023 Hemoglobin (Bld) [Mass/Vol] 12.7 g/dL Normal 11.8-15.4 [facility] Comment on above: Performed By: #### C BC, BMP, BNP, HS TROP, PTT, PT, HEPATIC, LACTIC, CK, DDIMER #### [address] Hepatic Panelon 09-30-2023 Albumin [Mass/Vol] 4.1 g/dL Normal 3.5-5.7 [facility] Comment on above: Performed By: #### C BC, BMP, BNP, HS TROP, PTT, PT, HEPATIC, LACTIC, CK, DDIMER #### [address] Bilirubin,Indirect 0.4 mg/dL Normal [facility] Comment on above: Performed By: #### C BC, BMP, BNP, HS TROP, PTT, PT, HEPATIC, LACTIC, CK, DDIMER #### [address] Bilirubin.indirect [Mass/Vol] 0.10 mg/dL Normal 0.03-0.18 [facility] Comment on above: Performed By: #### C BC, BMP, BNP, HS TROP, PTT, PT, HEPATIC, LACTIC, CK, DDIMER #### [facility] [address] Leukocytes [#/volume] correc french for nucleated erythrocytes in Blood by Automated counOrdered By: Patrice Springer on 09-30-2023 WBC corrected for nucl RBC Auto (Bld) [#/Vol] 9.5 10*3/uL 3.8-11.6 [facility] Leukocytes [#/volume] in Blo od by Automated countOrdered By: Patrice Springer on 09-30-2023 WBC (Bld) [#/Vol] 9.5 10*3/uL Normal 3.8-11.6 [facility] Comment on above: Performed By: #### C BC, BMP, BNP, HS TROP, PTT, PT, HEPATIC, LACTIC, CK, DDIMER #### [address] Lipase [Enzymatic activity/v olume] in Serum or PlasmaOrdered By: Patrice Springer on 09-30-2023 Lipase [Catalytic activity/Vol] 5.0 U/L Low 11.0-82.0 [facility] Comment on above: Result Comment: PERF ORMED BY: [place] [address] PATHOLOGIST SOCIAL WORK INSTRUCTOR LYUDMILA GIANG M.D. Performed By: #### C BC, BMP, BNP, HS TROP, PTT, PT, HEPATIC, LACTIC, CK, DDIMER #### [facility] [address] [place] [address] [place] Lymphocytes [#/volume] in Bl ood by Automated countOrdered By: Patrice Springer on 09-30-2023 Lymphocytes (Bld) [#/Vol] 1.1 10*3/uL Normal 1.00-4.8 [facility] Comment on above: Performed By: #### C BC, BMP, BNP, HS TROP, PTT, PT, HEPATIC, LACTIC, CK, DDIMER #### [facility] [address] Lymphocytes/100 leukocytes i n Blood by Automated countOrdered By: Patrice Springer on 09-30-2023 Lymphocytes/100 WBC (Bld) 12.0 % Normal . [facility] Comment on above: Performed By: #### C BC, BMP, BNP, HS TROP, PTT, PT, HEPATIC, LACTIC, CK, DDIMER #### [address] MCH [Entitic mass] by Automa french countOrdered By: Patrice Springer on 09-30-2023 MCH (RBC) [Entitic mass] 29.2 pg Normal 24.7-34.3 [facility] Comment on above: Performed By: #### C BC, BMP, BNP, HS TROP, PTT, PT, HEPATIC, LACTIC, CK, DDIMER #### [address] MCHC Auto (RBC) [Mass/Vol]Or dered By: Patrice Springer on 09-30-2023 MCHC (RBC) [Mass/Vol] 33.3 g/dL 32.0-35.0 [facility] MCV [Entitic volume] by Auto mated countOrdered By: Patrice Springer on 09-30-2023 MCV (RBC) [Entitic vol] 87.7 fL Normal 80-100 [facility] Comment on above: Performed By: #### C BC, BMP, BNP, HS TROP, PTT, PT, HEPATIC, LACTIC, CK, DDIMER #### [address] Monocyte distribution width [Entitic volume] in Blood by AutomatedOrdered By: Patrice Springer on 09-30-2023 Monocyte distribution width Auto (Bld) [Entitic vol] 15.40 % 0.00-20.00 [facility] Neutrophils [#/volume] in Bl ood by Automated countOrdered By: Patrice Springer on 09-30-2023 Neutrophils (Bld) [#/Vol] 6.8 10*3/uL Normal 1.8-7.7 [facility] Comment on above: Performed By: #### C BC, BMP, BNP, HS TROP, PTT, PT, HEPATIC, LACTIC, CK, DDIMER #### [address] No Panel InformationOrdered By: Patrice Springer on 09-30-2023 Estimated GFR (CKD-EPI) > 60.0 mL/Min [facility] Creatinine Clearance (Chem 56.50 [facility] Nucleated erythrocytes [Pres ence] in Blood by Automated countOrdered By: Patrice Springer on 09-30-2023 Nucleated RBC Auto Ql (Bld) 0.1 /100{WBC} 0-0.5 [facility] Platelet mean volume [Entiti c volume] in Blood by Automated countOrdered By: Patrice Springer on 09-30-2023 Platelet mean volume (Bld) [Entitic vol] 6.6 fL Normal 6.3-10.7 [facility] Comment on above: Performed By: #### C BC, BMP, BNP, HS TROP, PTT, PT, HEPATIC, LACTIC, CK, DDIMER #### [address] Platelets [#/volume] in Bloo d by Automated countOrdered By: Patrice Springer on 09-30-2023 Platelets (Bld) [#/Vol] 333 10*3/uL Normal 150-450 [facility] Comment on above: Performed By: #### C BC, BMP, BNP, HS TROP, PTT, PT, HEPATIC, LACTIC, CK, DDIMER #### [address] Potassium [Moles/volume] in Serum or PlasmaOrdered By: Patrice Springer on 09-30-2023 Potassium [Moles/Vol] 3.9 mmol/L Normal 3.5-5.1 [facility] Comment on above: Performed By: #### C BC, BMP, BNP, HS TROP, PTT, PT, HEPATIC, LACTIC, CK, DDIMER #### [place] [address] [place] Protein [Mass/volume] in Ser um or PlasmaOrdered By: Patrice Springer on 09-30-2023 Protein [Mass/Vol] 6.7 g/dL Normal 6.4-8.9 [facility] Comment on above: Performed By: #### C BC, BMP, BNP, HS TROP, PTT, PT, HEPATIC, LACTIC, CK, DDIMER #### [facility] [address] Serum globulin measurement b y calculation (mass/volume)Ordered By: Patrice Springer on 09-30-2023 Globulin (S) [Mass/Vol] 2.6 g/dL [facility] Comment on above: Performed By: #### C BC, BMP, BNP, HS TROP, PTT, PT, HEPATIC, LACTIC, CK, DDIMER #### [facility] [address] Serum or plasma albumin/glob ulin mass ratioOrdered By: Patrice Springer on 09-30-2023 Albumin/Globulin [Mass ratio] 1.6 {ratio} [facility] Comment on above: Performed By: #### C BC, BMP, BNP, HS TROP, PTT, PT, HEPATIC, LACTIC, CK, DDIMER #### [facility] [address] Serum or plasma anion gap de terminationOrdered By: Patrice Springer on 09-30-2023 Anion gap [Moles/Vol] 12.3 mmol/L Normal 6.0-15.0 [facility] Comment on above: Performed By: #### C BC, BMP, BNP, HS TROP, PTT, PT, HEPATIC, LACTIC, CK, DDIMER #### [facility] [address] Serum or plasma non-glucuron idated bilirubin measurement (mass/volume)Ordered By: Patrice Springer on 09-30-2023 Bilirubin.indirect [Mass/Vol] 0.4 mg/dL [facility] Sodium [Moles/volume] in Ser um or PlasmaOrdered By: Patrice Springer on 09-30-2023 Sodium [Moles/Vol] 139 mmol/L Normal 136-145 [facility] Comment on above: Performed By: #### C BC, BMP, BNP, HS TROP, PTT, PT, HEPATIC, LACTIC, CK, DDIMER #### [facility] [address] [place] [id number] [facility] Urea nitrogen [Mass/volume] in Serum or PlasmaOrdered By: Patrice Springer on 09-30-2023 Urea nitrogen [Mass/Vol] 21 mg/dL Normal 7-25 [facility] Comment on above: Performed By: #### C BC, BMP, BNP, HS TROP, PTT, PT, HEPATIC, LACTIC, CK, DDIMER #### [facility] [address] [place] [id number] [facility] CNOVon 09-22-2023 CNOV Office Visit ([facility] ) ----- EVAN GILL ([id number]) 1955 F Date Time Provider Department 09/22/23 2:40 PM BRANDIE SALMERON [facility] During your visit today, we recorded the following information about you: Temperature Pulse Blood pressure Weight 97.3 degrees 62/minute 125/68 62.6 kg Height 1.626 m Brandie Salmeron APRN.CONSUMER [employer]LECT[employer]IC RETAIL SPECIALIST 09/22/2023 2:48 PM Signed COLORECTAL SURGERY September 22, 2023 Evan Gill 68 year old This consult was requested by Dr. Singer and my final recommendations will be communicated to the requesting health care provider by way of the shared medical record for internal providers or letter via the [place] [employer] for external providers. Chief Complaint: post-op visit History of Present Illness: Evan Gill is a 68 year old female s/p a Robotic Assisted Laparoscopic Proctosigmoidectomy (Low Anterior Resection) with Colorectal Anastomosis and Diverting Loop Ileostomy, Laparoscopic Mobilization of Splenic Flexure, Flexible Sigmoidoscopy on 08/25/[address] Singer for rectal cancer. Subsequent readmission immediately post-op for obstructive concerns, discharged without additional surgical intervention. She presents today for her post-op visit. Doing well since her most recent discharge from the hospital. She has little to no pain and is no longer taking pain medications. Denies fevers and chills. She is up and active and [...] BP Position: Sitting) Pulse 62 Temp 36.3 ?C (97.3 ?F) Ht 162.6 cm (5' 4 ) Wt 62.6 kg (138 lb) SpO2 100% BMI 23.69 kg/m? General Appearance: Well appearing, alert, in no acute distress, well-hydrated, well nouris (more content not included)... [facility] Telephone (EVELIA) ----- EVAN GILL ([id number]) 1955 F Date Time Provider Department 09/06/23 COLLEEN SOLORIO During your visit today, we recorded the following information about you: Colleen Solorio, RN 09/06/2023 3:18 PM Signed DISCHARGE CALL BACK Today's date: September 06, 2023 Notified of Pt discharge by: hospital ADT folder Patient discharged on 09/04/23 from [place] to Home Primary Cancer Diagnosis: rectal cancer Admitting Diagnosis: Small bowel obstruction Discharge Summary/SBAR reviewed: Yes Handoff Discussed with Transitional User Experience Designer: No, unavailable Psychosocial Risk Factors: None If [...] Corona Patient reminded of follow-up appointment with [facility] provider, Dr Corona on TBD: Yes Discussed with pt how she is doing. Pt states she feels well and her ostomy is working well. She states the consistency is much better now than before she went into the hospital. Denies needs at this time. PATIENT EDUCATION / REINFORCEMENT Patient verbalizes understanding of when to seek Medical Attention? YES Patient verbalizes understanding of after hours and weekend phone number? YES Colleen Solorio RN Allergies As of Date: 09/06/2023 (No Known Allergies) Date Reviewed: 09/03/2023 Reviewed by: Marj Mcdonald RN - Fully Assessed Reason for Visit: Care Coordination [5588] Cmt: Hospital d/c follow up call Prescriptions as of 09/06/2023 - acetaminophen (TYLENOL) 500 mg tablet Take 2 tablets by mouth every 8 hours. - enoxaparin (LOVENOX) 40 mg/0.4 mL Inject 0.4 mL subcutaneously every 24 hours for 21 days. - oxyCODONE IR (ROXICODONE) 5 mg immediate release tablet Take 1 tablet by mouth every 6 hours as needed for up to 7 days. - nitroglycerin sublingual (NITROQUICK) 0.4 mg SL tablet Dissolve 1 tablet under the tongue as needed for chest pain, may repeat every 5 minutes if no relief up to 3 times. - Amoxicillin 500 mg tablet FOR DENTAL WORK - omeprazole (PRILOSEC) 40 mg capsule Take 40 mg by mouth once daily. - vitamin D3/vitamin K2, MK4, (K2 PLUS D3 ORAL) Take 1 Dose by mouth once daily. - compounded progesterone 50 mg capsule Take 150 mg by mouth daily at bedtime. - Testosterone 12.5 mg/ 1.25 gram (1 %) glpm Apply 2 Pump as directed once daily. 0.5 MIL - ondansetron orally disintegrating (ZOFRAN ODT) 8 mg disintegrating tablet Take 1 tablet by mouth every 8 hours as needed for nausea/vomiting. - prochlorperazine (COMPAZINE) 10 mg tablet Take 1 tablet by mouth every 6 hours as needed. - ondansetron (ZOFRAN) 8 mg tablet Take 1 tablet by mouth every 8 hours as needed for nausea/vomiting. - vortioxetine (TRINTELLIX) 10 mg tablet Take 10 mg by mouth once daily. - oxybutynin ER (DITROPAN XL) 15 mg 24 hr Extended Rel Tab Take 15 mg by mouth. - aspirin, enteric coated (ASPIRIN, ENTERIC COATED) 81 mg EC tablet Take 81 mg by mouth once daily. - docosahexaenoic acid/epa (FISH OIL ORAL) Take 2,000 mg by mouth two times a day. - calcium carbonate/vitamin d3(CALCIUM 600 WITH VITAMIN D3 600 MG (1,500 MG)-400 UNIT CAP) Take 1 tablet by mouth once daily. Problem List As Of Date 09/06/2023 Noted Resolved OSTEOARTHROS NOS-ANKLE [M19.079] 12/20/2005 Personal History of Malignant Melanoma of Skin *04/28/2009 Rectal cancer (HCC) [C20] 06/14/2023 Iron deficiency anemia, unspecified [D50.9] 07/06/2023 Atrial fibrillation (HCC) [I48.91] 08/09/2023 Essential hypertension [I10] 04/25/2017 GERD (gastroesophageal reflux disease) [K21.9] 08/09/2023 Hemorrhoids [K64.9] 08/09/2023 Hyperlipidemia [E78.5] 08/09/2023 Mixed anxiety depressive disorder [F41.8] 08/09/2023 Rectal adenocarcinoma (HCC) [C20] 08/25/2023 Ileostomy present (HCC) [Z93.2] 08/26/2023 Encounter for ostomy care education [Z71.89] 08/26/2023 08/29/2023 Small bowel obstruction (HCC) [K56.609] 08/31/2023 09/04/2023 Ileostomy bag changed (HCC) [Z43.2] 08/31/2023 Encounter Numbe (more content not included)... Normal [facility] CNPN Telephone (HEMASA) ----- EVAN GILL ([id number]) 1955 F Date Time Provider Department 09/06/23 COLLEEN SOLORIO During your visit today, we recorded the following information about you: Colleen Solorio RN 09/06/2023 3:19 PM Signed Pt was discharged from the hospital following her surgery, and readmission for small bowel obst. When would you like to follow up with patient? Please advise KAYA Sifuentes Kasra, MD 09/06/2023 7:40 PM Signed I would like to see her in 4 weeks Venecia Eid HUC 09/07/2023 8:31 AM Signed I called and Spoke with the Patient. I have her scheduled to see Dr. Corona on Monday at 1pm. ROB Villegas Allergies As of Date: 09/06/2023 (No Known Allergies) Date Reviewed: 09/03/2023 Reviewed by: Marj Mcdonald RN - Fully Assessed Reason for Visit: Care Coordination [6128] Cmt: Follow up appointment Prescriptions as of 09/07/2023 - acetaminophen (TYLENOL) 500 mg tablet Take 2 tablets by mouth every 8 hours. - enoxaparin (LOVENOX) 40 mg/0.4 mL Inject 0.4 mL subcutaneously every 24 hours for 21 days. - nitroglycerin sublingual (NITROQUICK) 0.4 mg SL tablet Dissolve 1 tablet under the tongue as needed for chest pain, may repeat every 5 minutes if no relief up to 3 times. - Amoxicillin 500 mg tablet FOR DENTAL WORK - omeprazole (PRILOSEC) 40 mg capsule Take 40 mg by mouth once daily. - vitamin D3/vitamin K2, MK4, (K2 PLUS D3 ORAL) Take 1 Dose by mouth once daily. - compounded progesterone 50 mg capsule Take 150 mg by mouth daily at bedtime. - Testosterone 12.5 mg/ 1.25 gram (1 %) glpm Apply 2 Pump as directed once daily. 0.5 MIL - ondansetron orally disintegrating (ZOFRAN ODT) 8 mg disintegrating tablet Take 1 tablet by mouth every 8 hours as needed for nausea/vomiting. - prochlorperazine (COMPAZINE) 10 mg tablet Take 1 tablet by mouth every 6 hours as needed. - ondansetron (ZOFRAN) 8 mg tablet Take 1 tablet by mouth every 8 hours as needed for nausea/vomiting. - vortioxetine (TRINTELLIX) 10 mg tablet Take 10 mg by mouth once daily. - oxybutynin ER (DITROPAN XL) 15 mg 24 hr Extended Rel Tab Take 15 mg by mouth. - aspirin, enteric coated (ASPIRIN, ENTERIC COATED) 81 mg EC tablet Take 81 mg by mouth once daily. - docosahexaenoic acid/epa (FISH OIL ORAL) Take 2,000 mg by mouth two times a day. - calcium carbonate/vitamin d3(CALCIUM 600 WITH VITAMIN D3 600 MG (1,500 MG)-400 UNIT CAP) Take 1 tablet by mouth once daily. Problem List As Of Date 09/06/2023 Noted Resolved OSTEOARTHROS NOS-ANKLE [M19.079] 12/20/2005 Personal History of Malignant Melanoma of Skin *04/28/2009 Rectal cancer (HCC) [C20] 06/14/2023 Iron deficiency anemia, unspecified [D50.9] 07/06/2023 Atrial fibrillation (HCC) [I48.91] 08/09/2023 Essential hypertension [I10] 04/25/2017 GERD (gastroesophageal reflux disease) [K21.9] 08/09/2023 Hemorrhoids [K64.9] 08/09/2023 Hyperlipidemia [E78.5] 08/09/2023 Mixed anxiety depressive disorder [F41.8] 08/09/2023 Rectal adenocarcinoma (HCC) [C20] 08/25/2023 Ileostomy present (HCC) [Z93.2] 08/26/2023 Encounter for ostomy care education [Z71.89] 08/26/2023 08/29/2023 Small bowel obstruction (HCC) [K56.609] 08/31/2023 09/04/2023 Ileostomy bag changed (HCC) [Z43.2] 08/31/2023 Encounter Status:Closed by COLLEEN SOLORIO on 09/07/23 [facility] 09-05-2023 CNPN Telephone ([facility]) ----- EVAN GILL ([id number]) 1955 F Date Time Provider Department 09/05/23 LAISHA SINGER [facility] During your visit today, we recorded the following information about you: Cierra Lindquist RN 09/05/2023 1:09 PM Signed Tumor board Allergies As of Date: 09/05/2023 (No Known Allergies) Date Reviewed: 09/03/2023 Reviewed by: Marj Mcdonald RN - Fully Assessed 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 - enoxaparin (LOVENOX) 40 mg/0.4 mL Inject 0.4 mL subcutaneously every 24 hours for 21 days. - oxyCODONE IR (ROXICODONE) 5 mg immediate release tablet Take 1 tablet by mouth every 6 hours as needed for up to 7 days. - nitroglycerin sublingual (NITROQUICK) 0.4 mg SL tablet Dissolve 1 tablet under the tongue as needed for chest pain, may repeat every 5 minutes if no relief up to 3 times. - Amoxicillin 500 mg tablet FOR DENTAL WORK - omeprazole (PRILOSEC) 40 mg capsule Take 40 mg by mouth once daily. - vitamin D3/vitamin K2, MK4, (K2 PLUS D3 ORAL) Take 1 Dose by mouth once daily. - compounded progesterone 50 mg capsule Take 150 mg by mouth daily at bedtime. - Testosterone 12.5 mg/ 1.25 gram (1 %) glpm Apply 2 Pump as directed once daily. 0.5 MIL - ondansetron orally disintegrating (ZOFRAN ODT) 8 mg disintegrating tablet Take 1 tablet by mouth every 8 hours as needed for nausea/vomiting. - prochlorperazine (COMPAZINE) 10 mg tablet Take 1 tablet by mouth every 6 hours as needed. - ondansetron (ZOFRAN) 8 mg tablet Take 1 tablet by mouth every 8 hours as needed for nausea/vomiting. - vortioxetine (TRINTELLIX) 10 mg tablet Take 10 mg by mouth once daily. - oxybutynin ER (DITROPAN XL) 15 mg 24 hr Extended Rel Tab Take 15 mg by mouth. - aspirin, enteric coated (ASPIRIN, ENTERIC COATED) 81 mg EC tablet Take 81 mg by mouth once daily. - docosahexaenoic acid/epa (FISH OIL ORAL) Take 2,000 mg by mouth two times a day. - calcium carbonate/vitamin d3(CALCIUM 600 WITH VITAMIN D3 600 MG (1,500 MG)-400 UNIT CAP) Take 1 tablet by mouth once daily. Problem List As Of Date 09/05/2023 Noted Resolved OSTEOARTHROS NOS-ANKLE [M19.079] 12/20/2005 Personal History of Malignant Melanoma of Skin *04/28/2009 Rectal cancer (HCC) [C20] 06/14/2023 Iron deficiency anemia, unspecified [D50.9] 07/06/2023 Atrial fibrillation (HCC) [I48.91] 08/09/2023 Essential hypertension [I10] 04/25/2017 GERD (gastroesophageal reflux disease) [K21.9] 08/09/2023 Hemorrhoids [K64.9] 08/09/2023 Hyperlipidemia [E78.5] 08/09/2023 Mixed anxiety depressive disorder [F41.8] 08/09/2023 Rectal adenocarcinoma (HCC) [C20] 08/25/2023 Ileostomy present (HCC) [Z93.2] 08/26/2023 Encounter for ostomy care education [Z71.89] 08/26/2023 08/29/2023 Small bowel obstruction (HCC) [K56.609] 08/31/2023 09/04/2023 Ileostomy bag changed (HCC) [Z43.2] 08/31/2023 Encounter Status:Closed by CIERRA LINDQUIST on 09/05/23 Normal [facility] Basic metabolic 2000 panelon 09-04-2023 Anion gap [Moles/Vol] 9 mmol/L Normal 9-18 [facility] Comment on above: Order Comment: Speci men Type: BLOOD SPECIMENOrdering Facility: [facility] Address: [address] [id number] Performed By: #### 2 777-1, 90599-2, ####CORNEL[facility]US LABORATORYCLIA [id number] [place] [id number] [place] Calcium [Mass/Vol] 8.7 mg/dL Normal 8.5-10.2 [facility] Comment on above: Order Comment: Speci men Type: BLOOD SPECIMENOrdering Facility: [facility] Address: [address] [place] [address] Performed By: #### 2 777-1, 09773-7, ####CORNELIUS LABORATORYCLIA [id number] [place] [id number] [place] Chloride [Moles/Vol] 109 mmol/L High 97-105 [facility] Comment on above: Order Comment: Speci men Type: BLOOD SPECIMENOrdering Facility: [facility] Address: [address] [id number] Performed By: #### 2 777-1, 10951-8, ####PORTER LABORATORYCLIA [id number] [place] [address] [place] CO2 [Moles/Vol] 25 mmol/L Normal 22-30 [facility] Comment on above: Order Comment: Speci men Type: BLOOD SPECIMENOrdering Facility: [facility] Address: [address] [place] [address] Performed By: #### 2 777-1, , ####PORTER LABORATORYCLIA [id number] [place] [address] [place] Creatinine [Mass/Vol] 0.56 mg/dL Low 0.58-0.96 [facility] Comment on above: Order Comment: Speci men Type: BLOOD SPECIMENOrdering Facility: [facility] Address: [address] [place] [address] Performed By: #### 2 777-1, , ####PORTER LABORATORYCLIA [id number] [place] [id number] [place] Creatinine and Glomerular filtration rate.predicted panel (S/P/Bld) 98 mL/min/1.73m??? Normal >=60 [facility] Comment on above: Order Comment: Speci men Type: BLOOD SPECIMENOrdering Facility: [facility] Address: [address] [place] [address] Result Comment: Farhana mated Glomerular Filtration Rate [...] actual GFR. Performed By: #### 2 777-1, 20425-6, ####PORTER LABORATORYCLIA [id number] [place] [address] [place] Glucose [Mass/Vol] 99 mg/dL Normal 74-99 [facility] Comment on above: Order Comment: Speci men Type: BLOOD SPECIMENOrdering Facility: [facility] Address: [address] [place] [address] Result Comment: The [place] Diabetes Association (ADA) provides guidance for cutoff [...] Standards of Medical Care in Diabetes 2016, [place] [employer]. Diabetes Care. 2016.39(Suppl 1). Performed By: #### 2 777-1, 44361-8, ####CORNELIUS LABORATORYCLIA [id number] [place] [address] [place] Potassium [Moles/Vol] 3.8 mmol/L Normal 3.7-5.1 [facility] Comment on above: Order Comment: Speci men Type: BLOOD SPECIMENOrdering Facility: [facility] Address: [address] [place] [address] Performed By: #### 2 777-1, , ####[facility] LABORATORYCLIA [id number] [place] [id number] [place] Sodium [Moles/Vol] 143 mmol/L Normal 136-144 [facility] Comment on above: Order Comment: Speci men Type: BLOOD SPECIMENOrdering Facility: [facility] Address: [address] [place] [address] Performed By: #### 2 777-1, , ####[facility] LABORATORYCLIA [id number] [place] [id number] [place] Urea nitrogen [Mass/Vol] 11 mg/dL Normal 7-21 [facility] Comment on above: Order Comment: Speci men Type: BLOOD SPECIMENOrdering Facility: [facility] Address: [address] [place] [address] Performed By: #### 2 777-1, 56714-9, 67228-5 ####CORNELIUS LABORATORYCLIA [id number] [address] [place] CASE MANAGEMon 09-04-2023 CASE MANAGEM Normal [facility] CBC panel Auto (Bld)on 09-04 Erythrocyte distribution width (RBC) [Ratio] 14.4 % Normal 11.5-15.0 [facility] Comment on above: Order Comment: Speci men Type: BLOOD SPECIMENOrdering Facility: [facility] Address: [address] [place] [address] Performed By: #### 5 8410-2 ####CORNELIUS LABORATORYCLIA [id number] [address] [place] Hematocrit (Bld) [Volume fraction] 31.1 % Low 36.0-46.0 [facility] Comment on above: Order Comment: Speci men Type: BLOOD SPECIMENOrdering Facility: [facility] Address: [address] [place] [address] Performed By: #### 5 8410-2 ####CORNELIUS LABORATORYCLIA [id number] [place] [address] [place] Hemoglobin (Bld) [Mass/Vol] 10.3 g/dL Low 11.5-15.5 [facility] Comment on above: Order Comment: Speci men Type: BLOOD SPECIMENOrdering Facility: [facility] Address: [address] [place] [address] Performed By: #### 5 8410-2 ####CORNELIUS LABORATORYCLIA [id number] [place] [id number] [place] MCH (RBC) [Entitic mass] 29.3 pg Normal 26.0-34.0 [facility] Comment on above: Order Comment: Speci men Type: BLOOD SPECIMENOrdering Facility: [facility] Address: [address] [place] [address] Performed By: #### 5 8410-2 ####CORNELIUS LABORATORYCLIA [id number] [place] [id number] [place] MCHC (RBC) [Mass/Vol] 33.1 g/dL Normal 30.5-36.0 [facility] Comment on above: Order Comment: Speci men Type: BLOOD SPECIMENOrdering Facility: [facility] Address: [address] [place] [address] Performed By: #### 5 8410-2 ####[facility] LABORATORYCLIA [id number] [place] [address] [place] MCV (RBC) [Entitic vol] 88.6 fL Normal 80.0-100.0 [facility] Comment on above: Order Comment: Speci men Type: BLOOD SPECIMENOrdering Facility: [facility] Address: [address] [place] [address] Performed By: #### 5 8410-2 ####[facility] LABORATORYCLIA [id number] [place] [address] [place] Nucleated RBC (Bld) [#/Vol] 10*3/uL Normal <0.01 [facility] Comment on above: Order Comment: Speci men Type: BLOOD SPECIMENOrdering Facility: [facility] Address: [address] [place] [address] Performed By: #### 5 8410-2 ####[facility] LABORATORYCLIA [id number] [place] [address] [place] Platelet mean volume (Bld) [Entitic vol] 8.5 fL Low 9.0-12.7 [facility] Comment on above: Order Comment: Speci men Type: BLOOD SPECIMENOrdering Facility: [facility] Address: [address] [place] [address] Performed By: #### 5 8410-2 ####[facility] LABORATORYCLIA [id number] [address] [place] Platelets (Bld) [#/Vol] 319 10*3/uL Normal 150-400 [facility] Comment on above: Order Comment: Speci men Type: BLOOD SPECIMENOrdering Facility: [facility] Address: [address] [place] [address] Performed By: #### 5 8410-2 ####PORTER LABORATORYCLIA [id number] [place] [id number] [place] RBC (Bld) [#/Vol] 3.51 10*6/uL Low 3.90-5.20 [facility] Comment on above: Order Comment: Speci men Type: BLOOD SPECIMENOrdering Facility: [facility] Address: [address] [place] [address] Performed By: #### 5 8410-2 ####PORTER LABORATORYCLIA [id number] [place] [id number] [place] WBC (Bld) [#/Vol] 5.11 10*3/uL Normal 3.70-11.00 [facility] Comment on above: Order Comment: Speci men Type: BLOOD SPECIMENOrdering Facility: [facility] Address: [address] [place] [address] Performed By: #### 5 8410-2 ####PORTER LABORATORYCLIA [id number] [place] [address] [place] CNDSon 09-04-2023 CNDS Normal [facility] CONSULTon 09-04-2023 CONSULT Normal [facility] Erythrocyte distribution wid th Auto (RBC) [Ratio]on 09-04-2023 Erythrocyte distribution width (RBC) [Ratio] 14.4 % 11.5-15.0 [facility] Hematocrit Auto (Bld) [Volum e fraction]on 09-04-2023 Hematocrit (Bld) [Volume fraction] 31.1 % 36.0-46.0 [facility] Hemoglobin [Mass/volume] in Bloodon 09-04-2023 Hemoglobin (Bld) [Mass/Vol] 10.3 g/dL 11.5-15.5 [facility] Laboratory - Chemistry and C hemistry - challengeon 09-04-2023 Calcium [Mass/Vol] 8.7 mg/dL 8.5-10.2 [facility] Chloride [Moles/Vol] 109 mmol/L 97-105 [facility] CO2 [Moles/Vol] 25 mmol/L 22-30 [facility] Creatinine [Mass/Vol] 0.56 mg/dL 0.58-0.96 [facility] Glucose [Mass/Vol] 99 mg/dL 74-99 [facility] Comment on above: The [place] Diabete s Association (ADA) provides guidance for [...] Standards of Medical Care in Diabetes 2016, [place] [employer]. Diabetes Care. 2016.39(Suppl 1). Magnesium [Mass/Vol] 1.8 mg/dL 1.7-2.3 [facility] Potassium [Moles/Vol] 3.8 mmol/L 3.7-5.1 [facility] Sodium [Moles/Vol] 143 mmol/L 136-144 [facility] Urea nitrogen [Mass/Vol] 11 mg/dL 7-21 [facility] Leukocytes [#/volume] correc french for nucleated erythrocytes in Blood by Automated counon 09-04-2023 WBC corrected for nucl RBC Auto (Bld) [#/Vol] 5.11 k/uL 3.70-11.00 [facility] MCH Auto (RBC) [Entitic mass ]on 09-04-2023 MCH (RBC) [Entitic mass] 29.3 pg 26.0-34.0 [facility] MCHC Auto (RBC) [Mass/Vol]on 09-04-2023 MCHC (RBC) [Mass/Vol] 33.1 g/dL 30.5-36.0 [facility] MCV Auto (RBC) [Entitic vol] on 09-04-2023 MCV (RBC) [Entitic vol] 88.6 fL 80.0-100.0 [facility] Magnesium SerPl-mCncon 09-04 Magnesium [Mass/Vol] 1.8 mg/dL Normal 1.7-2.3 [facility] Comment on above: Order Comment: Mason simpson Type: BLOOD SPECIMENOrdering Facility: [facility] Address: [address] [place] [address] Performed By: #### 2 777-1, 18686-7, ####CORNELIUS LABORATORYCLIA [id number] [place] [id number] [place] NURSING PROGon 09-04-2023 NURSING PROG Normal [facility] No Panel Informationon 09-04 Estimated GFR (CKD-EPI) 98 mL/min/1.73m??? >=60 [facility] Comment on above: Estimated Glomerular Filtration Rate [...] actual GFR. Phosphorus Level 4.6 mg/dL 2.7-4.8 [facility] Nucleated RBC Auto (Bld) [#/ Vol]on 09-04-2023 Nucleated RBC (Bld) [#/Vol] 10*3/uL <0.01 [facility] Phosphate SerPl-mCncon 09-04 Phosphate [Mass/Vol] 4.6 mg/dL Normal 2.7-4.8 [facility] Comment on above: Order Comment: Mason simpson Type: BLOOD SPECIMENOrdering Facility: [facility] Address: [address] [place] [address] Performed By: #### 2 777-1, 19440-9, ####CORNELIUS LABORATORYCLIA [id number] [place] [id number] [place] Platelet mean volume Auto (B ld) [Entitic vol]on 09-04-2023 Platelet mean volume (Bld) [Entitic vol] 8.5 fL 9.0-12.7 [facility] Platelets Auto (Bld) [#/Vol] on 09-04-2023 Platelets (Bld) [#/Vol] 319 10*3/uL 150-400 [facility] RBC Auto (Bld) [#/Vol]on RBC (Bld) [#/Vol] 3.51 10*6/uL 3.90-5.20 [facility] Serum or plasma anion gap de terminationon 09-04-2023 Anion gap [Moles/Vol] 9 mmol/L 9-18 [facility] Basic metabolic 2000 panelon 09-03-2023 Anion gap [Moles/Vol] 9 mmol/L Normal -18 [facility] Comment on above: Order Comment: Speci men Type: BLOOD SPECIMENOrdering Facility: [facility] Address: [address] [place] [address] Performed By: #### 1 9123-9, 2777-1, 62857-7 ####CORNELIUS LABORATORYCLIA [id number] [place] [address] [place] Calcium [Mass/Vol] 8.9 mg/dL Normal 8.5-10.2 [facility] Comment on above: Order Comment: Speci men Type: BLOOD SPECIMENOrdering Facility: [facility] Address: [address] [place] [address] Performed By: #### 1 9123-9, 2777-1, 33919-2 ####[facility] LABORATORYCLIA [id number] [place] [address] [place] Chloride [Moles/Vol] 105 mmol/L Normal 97-105 [facility] Comment on above: Order Comment: Speci men Type: BLOOD SPECIMENOrdering Facility: [facility] Address: [address] [place] [address] Performed By: #### 1 9123-9, 2777-1, 58585-8 ####PORTER LABORATORYCLIA [id number] [place] [address] [place] CO2 [Moles/Vol] 27 mmol/L Normal 22-30 [facility] Comment on above: Order Comment: Speci men Type: BLOOD SPECIMENOrdering Facility: [facility] Address: [address] [place] [address] Performed By: #### 1 9123-9, 2777-1, 17363-0 ####[facility] LABORATORYCLIA [id number] [place] [id number] [place] Creatinine [Mass/Vol] 0.57 mg/dL Low 0.58-0.96 [facility] Comment on above: Order Comment: Speci men Type: BLOOD SPECIMENOrdering Facility: [facility] Address: [address] [place] [address] Performed By: #### 1 9123-9, 2777-1, 16923-7 ####[facility] LABORATORYCLIA [id number] [place] [id number] [place] Creatinine and Glomerular filtration rate.predicted panel (S/P/Bld) 98 mL/min/1.73m??? Normal >=60 [facility] Comment on above: Order Comment: Speci men Type: BLOOD SPECIMENOrdering Facility: [facility] Address: [address] [place] [address] Result Comment: Farhana mated Glomerular Filtration Rate [...] actual GFR. Performed By: #### 1 9123-9, 2777-1, 26377-9 ####[facility] LABORATORYCLIA [id number] [place] [id number] [place] Glucose [Mass/Vol] 105 mg/dL High 74-99 [facility] Comment on above: Order Comment: Speci men Type: BLOOD SPECIMENOrdering Facility: [facility] Address: [address] [place] [address] Result Comment: The [place] Diabetes Association (ADA) provides guidance for cutoff [...] Standards of Medical Care in Diabetes 2016, [place] Diabetes Association. Diabetes Care. 2016.39(Suppl 1). Performed By: #### 1 9123-9, 2777-, 96916-3 ####PORTER LABORATORYCLIA [id number] [place] [id number] [place] Potassium [Moles/Vol] 3.7 mmol/L Normal 3.7-5.1 [facility] Comment on above: Order Comment: Mason simpson Type: BLOOD SPECIMENOrdering Facility: [facility] Address: [address] [place] [address] Performed By: #### 1 9123-9, 27701-07, 59099-8 ####PORTER LABORATORYCLIA [id number] [place] [id number] [place] Sodium [Moles/Vol] 141 mmol/L Normal 136-144 [facility] Comment on above: Order Comment: Mason simpson Type: BLOOD SPECIMENOrdering Facility: [facility] Address: [address] [place] [address] Performed By: #### 1 9123-9, 27701-07, 73412-9 ####PORTER LABORATORYCLIA [id number] [place] [id number] [place] Urea nitrogen [Mass/Vol] 10 mg/dL Normal 7-21 [facility] Comment on above: Order Comment: Mason simpson Type: BLOOD SPECIMENOrdering Facility: [facility] Address: [address] [place] [address] Performed By: #### 1 9123-9, 27701-07, 35423-8 ####PORTER LABORATORYCLIA [id number] [place] [id number] [place] CBC panel Auto (Bld)on 09-03 Erythrocyte distribution width (RBC) [Ratio] 14.3 % Normal 11.5-15.0 [facility] Comment on above: Order Comment: Speci men Type: BLOOD SPECIMENOrdering Facility: [facility] Address: [address] [place] [address] Performed By: #### 5 8410-2 ####[facility] LABORATORYCLIA [id number] [address] STATES [facility] Hematocrit (Bld) [Volume fraction] 30.5 % Low 36.0-46.0 [facility] Comment on above: Order Comment: Speci men Type: BLOOD SPECIMENOrdering Facility: [facility] Address: [address] [place] [address] Performed By: #### 5 8410-2 ####[facility] LABORATORYCLIA [id number] [address] Hemoglobin (Bld) [Mass/Vol] 10.1 g/dL Low 11.5-15.5 [facility] Comment on above: Order Comment: Speci men Type: BLOOD SPECIMENOrdering Facility: [facility] Address: [address] [place] [address] Performed By: #### 5 8410-2 ####[facility] LABORATORYCLIA [id number] [address] STATES [facility] MCH (RBC) [Entitic mass] 29.4 pg Normal 26.0-34.0 [facility] Comment on above: Order Comment: Speci men Type: BLOOD SPECIMENOrdering Facility: [facility] Address: [address] [place] [address] Performed By: #### 5 8410-2 ####[facility] LABORATORYCLIA [id number] [place] [id number] [place] MCHC (RBC) [Mass/Vol] 33.1 g/dL Normal 30.5-36.0 [facility] Comment on above: Order Comment: Speci men Type: BLOOD SPECIMENOrdering Facility: [facility] Address: [address] [place] [address] Performed By: #### 5 8410-2 ####PORTER LABORATORYCLIA [id number] [place] [id number] [facility] [place] MCV (RBC) [Entitic vol] 88.9 fL Normal 80.0-100.0 [facility] Comment on above: Order Comment: Speci men Type: BLOOD SPECIMENOrdering Facility: [facility] Address: [address] [place] [address] Performed By: #### 5 8410-2 ####PORTER LABORATORYCLIA [id number] [place] [id number] [place] Nucleated RBC (Bld) [#/Vol] 10*3/uL Normal <0.01 [facility] Comment on above: Order Comment: Speci men Type: BLOOD SPECIMENOrdering Facility: [facility] Address: [address] [place] [address] Performed By: #### 5 8410-2 ####PORTER LABORATORYCLIA [id number] [address] [place] Platelet mean volume (Bld) [Entitic vol] 8.7 fL Low 9.0-12.7 [facility] Comment on above: Order Comment: Speci men Type: BLOOD SPECIMENOrdering Facility: [facility] Address: [address] [place] [address] Performed By: #### 5 8410-2 ####PORTER LABORATORYCLIA [id number] [place] [id number] [place] Platelets (Bld) [#/Vol] 306 10*3/uL Normal 150-400 [facility] Comment on above: Order Comment: Speci men Type: BLOOD SPECIMENOrdering Facility: [facility] Address: [address] [place] [address] Performed By: #### 5 8410-2 ####PORTER LABORATORYCLIA [id number] [place] [address] [place] RBC (Bld) [#/Vol] 3.43 10*6/uL Low 3.90-5.20 [facility] Comment on above: Order Comment: Speci men Type: BLOOD SPECIMENOrdering Facility: [facility] Address: [address] [id number] Performed By: #### 5 8410-2 ####[facility] LABORATORYCLIA [id number] [place] [id number] [place] WBC (Bld) [#/Vol] 5.15 10*3/uL Normal 3.70-11.00 [facility] Comment on above: Order Comment: Speci men Type: BLOOD SPECIMENOrdering Facility: [facility] Address: [address] [id number] Performed By: #### 5 8410-2 ####[facility] LABORATORYCLIA [id number] [place] [id number] [place] Erythrocyte distribution wid th Auto (RBC) [Ratio]on 09-03-2023 Erythrocyte distribution width (RBC) [Ratio] 14.3 % 11.5-15.0 [facility] Hematocrit Auto (Bld) [Volum e fraction]on 09-03-2023 Hematocrit (Bld) [Volume fraction] 30.5 % 36.0-46.0 [facility] Hemoglobin [Mass/volume] in Bloodon 09-03-2023 Hemoglobin (Bld) [Mass/Vol] 10.1 g/dL 11.5-15.5 [facility] - Chemistry and C hemistry - challengeon 09-03-2023 Calcium [Mass/Vol] 8.9 mg/dL 8.5-10.2 [facility] Chloride [Moles/Vol] 105 mmol/L 97-105 [facility] CO2 [Moles/Vol] 27 mmol/L 22-30 [facility] Creatinine [Mass/Vol] 0.57 mg/dL 0.58-0.96 [facility] Glucose [Mass/Vol] 105 mg/dL 74-99 [facility] Comment on above: The [place] Diabete s Association (ADA) provides guidance for [...] Standards of Medical Care in Diabetes 2016, [place] Diabetes [employer]. Diabetes Care. 2016.39(Suppl 1). Magnesium [Mass/Vol] 1.9 mg/dL 1.7-2.3 [facility] Potassium [Moles/Vol] 3.7 mmol/L 3.7-5.1 [facility] Sodium [Moles/Vol] 141 mmol/L 136-144 [facility] Urea nitrogen [Mass/Vol] 10 mg/dL 01-27 [facility] Leukocytes [#/volume] correc french for nucleated erythrocytes in Blood by Automated counon 09-03-2023 WBC corrected for nucl RBC Auto (Bld) [#/Vol] 5.15 k/uL 3.70-11.00 [facility] MCH Auto (RBC) [Entitic mass ]on 09-03-2023 MCH (RBC) [Entitic mass] 29.4 pg 26.0-34.0 [facility] MCHC Auto (RBC) [Mass/Vol]on 09-03-2023 MCHC (RBC) [Mass/Vol] 33.1 g/dL 30.5-36.0 [facility] MCV Auto (RBC) [Entitic vol] on 09-03-2023 MCV (RBC) [Entitic vol] 88.9 fL 80.0-100.0 [facility] Magnesium SerPl-mCncon 09-03 Magnesium [Mass/Vol] 1.9 mg/dL Normal 1.7-2.3 [facility] Comment on above: Order Comment: Speci men Type: BLOOD SPECIMENOrdering Facility: [facility] Address: [address] [place] [address] Performed By: #### 1 9123-9, 2777-1, 49926-0 ####CORNELIUS LABORATORYCLIA [id number] [address] OF [facility] NURSING PROGon 09-03-2023 NURSING PROG Normal [facility] No Panel Informationon 09-03 Estimated GFR (CKD-EPI) 98 mL/min/1.73m??? >=60 [facility] Comment on above: Estimated Glomerular Filtration Rate [...] actual GFR. Phosphorus Level 3.7 mg/dL 2.7-4.8 [facility] Nucleated RBC Auto (Bld) [#/ Vol]on 09-03-2023 Nucleated RBC (Bld) [#/Vol] 10*3/uL <0.01 [facility] Phosphate SerPl-mCncon 09-03 Phosphate [Mass/Vol] 3.7 mg/dL Normal 2.7-4.8 [facility] Comment on above: Order Comment: Speci men Type: BLOOD SPECIMENOrdering Facility: [facility] Address: [address] [place] [address] Performed By: #### 1 9123-9, 2777-1, 76745-1 ####PORTER LABORATORYCLIA [id number] [place] [address] [place] Platelet mean volume Auto (B ld) [Entitic vol]on 09-03-2023 Platelet mean volume (Bld) [Entitic vol] 8.7 fL 9.0-12.7 [facility] Platelets Auto (Bld) [#/Vol] on 09-03-2023 Platelets (Bld) [#/Vol] 306 10*3/uL 150-400 [facility] RBC Auto (Bld) [#/Vol]on RBC (Bld) [#/Vol] 3.43 10*6/uL 3.90-5.20 [facility] Serum or plasma anion gap de terminationon 09-03-2023 Anion gap [Moles/Vol] 9 mmol/L 9-18 [facility] Basic metabolic 2000 panelon 09-02-2023 Anion gap [Moles/Vol] 13 mmol/L Normal 9-18 [facility] Comment on above: Order Comment: Speci men Type: BLOOD SPECIMENOrdering Facility: [facility] Address: [address] [place] [address] Performed By: #### 2 777-1, 54300-2, ####CORNELIUS LABORATORYCLIA [id number] [place] [id number] [place] Calcium [Mass/Vol] 8.7 mg/dL Normal 8.5-10.2 [facility] Comment on above: Order Comment: Speci men Type: BLOOD SPECIMENOrdering Facility: [facility] Address: [address] [place] [address] Performed By: #### 2 777-1, 48981-2, ####CORNELIUS LABORATORYCLIA [id number] [place] [id number] [place] Chloride [Moles/Vol] 106 mmol/L High 97-105 [facility] Comment on above: Order Comment: Speci men Type: BLOOD SPECIMENOrdering Facility: [facility] Address: [address] [place] [address] Performed By: #### 2 777-1, 61934-0, ####CORNELIUS LABORATORYCLIA [id number] [place] [id number] [place] CO2 [Moles/Vol] 26 mmol/L Normal 22-30 [facility] Comment on above: Order Comment: Speci men Type: BLOOD SPECIMENOrdering Facility: [facility] Address: [address] [place] [address] Performed By: #### 2 777-1, 85776-7, ####CORNELIUS LABORATORYCLIA [id number] [place] [address] [place] Creatinine [Mass/Vol] 0.61 mg/dL Normal 0.58-0.96 [facility] Comment on above: Order Comment: Speci men Type: BLOOD SPECIMENOrdering Facility: [facility] Address: [address] [place] [address] Performed By: #### 2 777-1, 71672-0, ####PORTER LABORATORYCLIA [id number] [place] [id number] [place] Creatinine and Glomerular filtration rate.predicted panel (S/P/Bld) 96 mL/min/1.73m??? Normal >=60 [facility] Comment on above: Order Comment: Mason simpson Type: BLOOD SPECIMENOrdering Facility: [facility] Address: [address] [place] [address] Result Comment: Farhana mated Glomerular Filtration Rate [...] actual GFR. Performed By: #### 2 777-1, 81305-9, ####PORTER LABORATORYCLIA [id number] [place] [id number] [place] Glucose [Mass/Vol] 84 mg/dL Normal 74-99 [facility] Comment on above: Order Comment: Mason simpson Type: BLOOD SPECIMENOrdering Facility: [facility] Address: [address] [place] [address] Result Comment: The [place] Diabetes Association (ADA) provides guidance for cutoff [...] Standards of Medical Care in Diabetes 2016, [place] Diabetes Association. Diabetes Care. 2016.39(Suppl 1). Performed By: #### 2 777-1, 71694-6, ####PORTER LABORATORYCLIA [id number] [place] [id number] [place] Potassium [Moles/Vol] 3.5 mmol/L Low 3.7-5.1 [facility] Comment on above: Order Comment: Speci men Type: BLOOD SPECIMENOrdering Facility: [facility] Address: [address] [place] [address] Performed By: #### 2 777-1, 83037-9, ####PORTER LABORATORYCLIA [id number] [place] [id number] [place] Sodium [Moles/Vol] 145 mmol/L High 136-144 [facility] Comment on above: Order Comment: Speci men Type: BLOOD SPECIMENOrdering Facility: [facility] Address: [address] [place] [address] Performed By: #### 2 777-1, 83328-9, ####PORTER LABORATORYCLIA [id number] [place] [id number] [place] Urea nitrogen [Mass/Vol] 22 mg/dL High 7-21 [facility] Comment on above: Order Comment: Speci men Type: BLOOD SPECIMENOrdering Facility: [facility] Address: [address] [place] [address] Performed By: #### 2 777-1, 72914-0, ####PORTER LABORATORYCLIA [id number] [place] [id number] [place] CBC panel Auto (Bld)on 09-02 Erythrocyte distribution width (RBC) [Ratio] 14.6 % Normal 11.5-15.0 [facility] Comment on above: Order Comment: Speci men Type: BLOOD SPECIMENOrdering Facility: [facility] Address: [address] [place] [address] Performed By: #### 5 8410-2 ####PORTER LABORATORYCLIA [id number] [place] [id number] [place] Hematocrit (Bld) [Volume fraction] 33.2 % Low 36.0-46.0 [facility] Comment on above: Order Comment: Speci men Type: BLOOD SPECIMENOrdering Facility: [facility] Address: [address] [place] [address] Performed By: #### 5 8410-2 ####CORNELIUS LABORATORYCLIA [id number] [place] [address] [place] Hemoglobin (Bld) [Mass/Vol] 10.8 g/dL Low 11.5-15.5 [facility] Comment on above: Order Comment: Speci men Type: BLOOD SPECIMENOrdering Facility: [facility] Address: [address] [place] [address] Performed By: #### 5 8410-2 ####CORNELIUS LABORATORYCLIA [id number] [place] [address] [place] MCH (RBC) [Entitic mass] 29.4 pg Normal 26.0-34.0 [facility] Comment on above: Order Comment: Speci men Type: BLOOD SPECIMENOrdering Facility: [facility] Address: [address] [place] [address] Performed By: #### 5 8410-2 ####CORNELIUS LABORATORYCLIA [id number] [place] [address] [place] MCHC (RBC) [Mass/Vol] 32.5 g/dL Normal 30.5-36.0 [facility] Comment on above: Order Comment: Speci men Type: BLOOD SPECIMENOrdering Facility: [facility] Address: [address] [place] [address] Performed By: #### 5 8410-2 ####CORNELIUS LABORATORYCLIA [id number] [place] [address] [place] MCV (RBC) [Entitic vol] 90.5 fL Normal 80.0-100.0 [facility] Comment on above: Order Comment: Speci men Type: BLOOD SPECIMENOrdering Facility: [facility] Address: [address] [place] [address] Performed By: #### 5 8410-2 ####CORNELIUS LABORATORYCLIA [id number] [place] [id number] [place] Nucleated RBC (Bld) [#/Vol] 10*3/uL Normal <0.01 [facility] Comment on above: Order Comment: Speci men Type: BLOOD SPECIMENOrdering Facility: [facility] Address: [address] [place] [address] Performed By: #### 5 8410-2 ####[facility] LABORATORYCLIA [id number] [place] [address] [place] Platelet mean volume (Bld) [Entitic vol] 8.4 fL Low 9.0-12.7 [facility] Comment on above: Order Comment: Speci men Type: BLOOD SPECIMENOrdering Facility: [facility] Address: [address] [place] [address] Performed By: #### 5 8410-2 ####[facility] LABORATORYCLIA [id number] [place] [id number] [place] Platelets (Bld) [#/Vol] 290 10*3/uL Normal 150-400 [facility] Comment on above: Order Comment: Speci men Type: BLOOD SPECIMENOrdering Facility: [facility] Address: [address] [place] [address] Performed By: #### 5 8410-2 ####[facility] LABORATORYCLIA [id number] [place] [address] [place] RBC (Bld) [#/Vol] 3.67 10*6/uL Low 3.90-5.20 [facility] Comment on above: Order Comment: Speci men Type: BLOOD SPECIMENOrdering Facility: [facility] Address: [address] [place] [address] Performed By: #### 5 8410-2 ####[facility] LABORATORYCLIA [id number] [place] [id number] [place] WBC (Bld) [#/Vol] 5.87 10*3/uL Normal 3.70-11.00 [facility] Comment on above: Order Comment: Speci men Type: BLOOD SPECIMENOrdering Facility: [facility] Address: [address], [place] [address] Performed By: #### 5 8410-2 ####CORNELIUS LABORATORYCLIA [id number] [place] [address] [place] Erythrocyte distribution wid th Auto (RBC) [Ratio]on 09-02-2023 Erythrocyte distribution width (RBC) [Ratio] 14.6 % 11.5-15.0 [facility] Hematocrit Auto (Bld) [Volum e fraction]on 09-02-2023 Hematocrit (Bld) [Volume fraction] 33.2 % 36.0-46.0 [facility] Hemoglobin [Mass/volume] in Bloodon 09-02-2023 Hemoglobin (Bld) [Mass/Vol] 10.8 g/dL 11.5-15.5 [facility] - Chemistry and C hemistry - challengeon 09-02-2023 Calcium [Mass/Vol] 8.7 mg/dL 8.5-10.2 [facility] Chloride [Moles/Vol] 106 mmol/L 97-105 [facility] CO2 [Moles/Vol] 26 mmol/L 22-30 [facility] Creatinine [Mass/Vol] 0.61 mg/dL 0.58-0.96 [facility] Glucose [Mass/Vol] 84 mg/dL 74-99 [facility] Comment on above: The [place] Diabete s Association (ADA) provides guidance for [...] Standards of Medical Care in Diabetes 2016, [place] Diabetes Association. Diabetes Care. 2016.39(Suppl 1). Magnesium [Mass/Vol] 2.1 mg/dL 1.7-2.3 [facility] Potassium [Moles/Vol] 3.5 mmol/L 3.7-5.1 [facility] Sodium [Moles/Vol] 145 mmol/L 136-144 [facility] Urea nitrogen [Mass/Vol] 22 mg/dL 7- [facility] Leukocytes [#/volume] correc french for nucleated erythrocytes in Blood by Automated counon 09-02-2023 WBC corrected for nucl RBC Auto (Bld) [#/Vol] 5.87 k/uL 3.70-11.00 [facility] MCH Auto (RBC) [Entitic mass ]on 09-02-2023 MCH (RBC) [Entitic mass] 29.4 pg 26.0-34.0 [facility] MCHC Auto (RBC) [Mass/Vol]on 09-02-2023 MCHC (RBC) [Mass/Vol] 32.5 g/dL 30.5-36.0 [facility] MCV Auto (RBC) [Entitic vol] on 09-02-2023 MCV (RBC) [Entitic vol] 90.5 fL 80.0-100.0 [facility] Magnesium SerPl-mCncon 09-02 Magnesium [Mass/Vol] 2.1 mg/dL Normal 1.7-2.3 [facility] Comment on above: Order Comment: Speci men Type: BLOOD SPECIMENOrdering Facility: [facility] Address: [address] [place] [address] Performed By: #### 2 777-1, 22062-6, 63296-3 ####PORTER LABORATORYCLIA [id number] [place] [address] [place] NURSING PROGon 09-02-2023 NURSING PROG Normal [facility] No Panel Informationon 09-02 Estimated GFR (CKD-EPI) 96 mL/min/1.73m??? >=60 [facility] Comment on above: Estimated Glomerular Filtration Rate [...] actual GFR. Phosphorus Level 3.5 mg/dL 2.7-4.8 [facility] Nucleated RBC Auto (Bld) [#/ Vol]on 09-02-2023 Nucleated RBC (Bld) [#/Vol] 10*3/uL <0.01 [facility] Phosphate SerPl-mCncon 09-02 Phosphate [Mass/Vol] 3.5 mg/dL Normal 2.7-4.8 [facility] Comment on above: Order Comment: Speci men Type: BLOOD SPECIMENOrdering Facility: [facility] Address: [address] [place] [address] Performed By: #### 2 777-1, 43336-2, ####CORNELIUS LABORATORYCLIA [id number] [address] [place] Platelet mean volume Auto (B ld) [Entitic vol]on 09-02-2023 Platelet mean volume (Bld) [Entitic vol] 8.4 fL 9.0-12.7 [facility] Platelets Auto (Bld) [#/Vol] on 09-02-2023 Platelets (Bld) [#/Vol] 290 10*3/uL 150-400 [facility] RBC Auto (Bld) [#/Vol]on RBC (Bld) [#/Vol] 3.67 10*6/uL 3.90-5.20 [facility] Serum or plasma anion gap de terminationon 09-02-2023 Anion gap [Moles/Vol] 13 mmol/L - [facility] Basic metabolic 2000 panelon 09-01-2023 Anion gap [Moles/Vol] 13 mmol/L Normal -18 [facility] Comment on above: Order Comment: Speci men Type: BLOOD SPECIMENOrdering Facility: [facility] Address: [address] [place] [address] Performed By: #### 2 4321-2, 2777-1, ####CORNELIUS LABORATORYCLIA [id number] [place] [address] [place] Calcium [Mass/Vol] 8.8 mg/dL Normal 8.5-10.2 [facility] Comment on above: Order Comment: Speci men Type: BLOOD SPECIMENOrdering Facility: [facility] Address: [address] [place] [address] Performed By: #### 2 4321-2, 2776-07, ####PORTER LABORATORYCLIA [id number] [place] [id number] [place] Chloride [Moles/Vol] 101 mmol/L Normal 97-105 [facility] Comment on above: Order Comment: Speci men Type: BLOOD SPECIMENOrdering Facility: [facility] Address: [address] [place] [address] Performed By: #### 2 4321-2, 2776-07, ####PORTER LABORATORYCLIA [id number] [place] [id number] [place] CO2 [Moles/Vol] 27 mmol/L Normal 22-30 [facility] Comment on above: Order Comment: Speci men Type: BLOOD SPECIMENOrdering Facility: [facility] Address: [address] [place] [address] Performed By: #### 2 4321-2, 2776-07, ####PORTER LABORATORYCLIA [id number] [place] [address] [place] Creatinine [Mass/Vol] 0.77 mg/dL Normal 0.58-0.96 [facility] Comment on above: Order Comment: Speci men Type: BLOOD SPECIMENOrdering Facility: [facility] Address: [address] [place] [address] Performed By: #### 2 4321-2, 2776-07, ####PORTER LABORATORYCLIA [id number] [place] [id number] [place] Creatinine and Glomerular filtration rate.predicted panel (S/P/Bld) 83 mL/min/1.73m??? Normal >=60 [facility] Comment on above: Order Comment: Speci men Type: BLOOD SPECIMENOrdering Facility: [facility] Address: [address] [place] [address] Result Comment: Farhana mated Glomerular Filtration Rate [...] GFR. Performed By: #### 2 4321-2, 2777-, ####[facility] LABORATORYCLIA [id number] [place] [id number] [place] Glucose [Mass/Vol] 95 mg/dL Normal 74-99 [facility] Comment on above: Order Comment: Mason simpson Type: BLOOD SPECIMENOrdering Facility: [facility] Address: [address] [place] [address] Result Comment: The [place] Diabetes Association (ADA) provides guidance for cutoff [...] Standards of Medical Care in Diabetes 2016, [place] Diabetes [employer]. Diabetes Care. 2016.39(Suppl 1). Performed By: #### 2 4321-2, 2777-, ####PORTER LABORATORYCLIA [id number] [place] [address] [place] Potassium [Moles/Vol] 4.2 mmol/L Normal 3.7-5.1 [facility] Comment on above: Order Comment: Mason simpson Type: BLOOD SPECIMENOrdering Facility: [facility] Address: [address] [place] [address] Performed By: #### 2 4321-2, 277-1, ####PORTER LABORATORYCLIA [id number] [place] [id number] [place] Sodium [Moles/Vol] 141 mmol/L Normal 136-144 [facility] Comment on above: Order Comment: Speci men Type: BLOOD SPECIMENOrdering Facility: [facility] Address: [address] [place] [address] Performed By: #### 2 4321-2, 277-1, ####PORTER LABORATORYCLIA [id number] [place] [id number] [place] Urea nitrogen [Mass/Vol] 22 mg/dL High 7-21 [facility] Comment on above: Order Comment: Speci men Type: BLOOD SPECIMENOrdering Facility: [facility] Address: [address] [place] [address] Performed By: #### 2 4321-2, 2776-07, ####PORTER LABORATORYCLIA [id number] [place] [id number] [facility] [place] CASE MANAGEMon 09-01-2023 CASE MANAGEM Normal [facility] CBC panel Auto (Bld)on 09-01 Erythrocyte distribution width (RBC) [Ratio] 15.2 % High 11.5-15.0 [facility] Comment on above: Order Comment: Speci men Type: BLOOD SPECIMENOrdering Facility: [facility] Address: [address] [place] [address] Performed By: #### 5 8410-2 ####PORTER LABORATORYCLIA [id number] [place] [id number] [place] Hematocrit (Bld) [Volume fraction] 35.3 % Low 36.0-46.0 [facility] Comment on above: Order Comment: Speci men Type: BLOOD SPECIMENOrdering Facility: [facility] Address: [address] [place] [address] Performed By: #### 5 8410-2 ####PORTER LABORATORYCLIA [id number] [place] [id number] [place] Hemoglobin (Bld) [Mass/Vol] 11.8 g/dL Normal 11.5-15.5 [facility] Comment on above: Order Comment: Speci men Type: BLOOD SPECIMENOrdering Facility: [facility] Address: [address] [place] [address] Performed By: #### 5 8410-2 ####[facility] LABORATORYCLIA [id number] [address] STATES [facility] MCH (RBC) [Entitic mass] 29.6 pg Normal 26.0-34.0 [facility] Comment on above: Order Comment: Speci men Type: BLOOD SPECIMENOrdering Facility: [facility] Address: [address] [place] [address] Performed By: #### 5 8410-2 ####[facility] LABORATORYCLIA [id number] [address] [place] MCHC (RBC) [Mass/Vol] 33.4 g/dL Normal 30.5-36.0 [facility] Comment on above: Order Comment: Speci men Type: BLOOD SPECIMENOrdering Facility: [facility] Address: [address] [place] [address] Performed By: #### 5 8410-2 ####[facility] LABORATORYCLIA [id number] [address] [place] MCV (RBC) [Entitic vol] 88.7 fL Normal 80.0-100.0 [facility] Comment on above: Order Comment: Speci men Type: BLOOD SPECIMENOrdering Facility: [facility] Address: [address] [place] [address] Performed By: #### 5 8410-2 ####[facility] LABORATORYCLIA [id number] [address] [place] Nucleated RBC (Bld) [#/Vol] 10*3/uL Normal <0.01 [facility] Comment on above: Order Comment: Speci men Type: BLOOD SPECIMENOrdering Facility: [facility] Address: [address] [place] [address] Performed By: #### 5 8410-2 ####CORNELIUS LABORATORYCLIA [id number] [place] [id number] [place] Platelet mean volume (Bld) [Entitic vol] 8.5 fL Low 9.0-12.7 [facility] Comment on above: Order Comment: Speci men Type: BLOOD SPECIMENOrdering Facility: [facility] Address: [address] [place] [address] Performed By: #### 5 8410-2 ####[facility] LABORATORYCLIA [id number] [place] [id number] [place] Platelets (Bld) [#/Vol] 297 10*3/uL Normal 150-400 [facility] Comment on above: Order Comment: Speci men Type: BLOOD SPECIMENOrdering Facility: [facility] Address: [address] [place] [address] Performed By: #### 5 8410-2 ####[facility] LABORATORYCLIA [id number] [place] [id number] [place] RBC (Bld) [#/Vol] 3.98 10*6/uL Normal 3.90-5.20 [facility] Comment on above: Order Comment: Speci men Type: BLOOD SPECIMENOrdering Facility: [facility] Address: [address] [place] [address] Performed By: #### 5 8410-2 ####[facility] LABORATORYCLIA [id number] [place] [id number] [place] WBC (Bld) [#/Vol] 5.99 10*3/uL Normal 3.70-11.00 [facility] Comment on above: Order Comment: Speci men Type: BLOOD SPECIMENOrdering Facility: [facility] Address: [address] [place] [address] Performed By: #### 5 8410-2 ####[facility] LABORATORYCLIA [id number] [place] [id number] [facility] [place] Huang 09-01-2023 [place] Telephone (HEM[place]) ----- EVAN GILL ([id number]) 1955 F Date Time Provider Department 09/01/23 COLLEEN SOLORIO During your visit today, we recorded the following information about you: Colleen Solorio RN 09/01/2023 1:03 PM Signed DISCHARGE CALL BACK Today's date: September 01, 2023 Notified of Pt discharge by: hospital adt folder Patient discharged on 08/30/23 from [place] to Home Primary Cancer Diagnosis: rectal cancer Admitting Diagnosis: surgery-ileostomy Discharge Summary/SBAR reviewed: Yes Handoff Discussed with Transitional User Experience Designer: No, unavailable Psychosocial Risk Factors: None unable to assess, didn't speak with patient If patient discharged to SNF/Rehab Facility, phone call completed to reinforce discharge instructions and follow up: N/A Call Disposition: Readmitted or In Emergency Department Colleen Solorio RN Allergies As of Date: 09/01/2023 (No Known Allergies) Date Reviewed: 09/01/2023 Reviewed by: Haritha Song RN - Fully Assessed Reason for Visit: Care Coordination [8686] Cmt: [facility] d/c follow up call Prescriptions as of 09/01/2023 - loperamide (IMODIUM) 2 mg cap(s) Take 1 capsule by mouth before meals and at bedtime. - psyllium (METAMUCIL) 3.4 gram packet Take 1 Packet by mouth three times a day. - acetaminophen (TYLENOL) 500 mg tablet Take 2 tablets by mouth every 8 hours. - enoxaparin (LOVENOX) 40 mg/0.4 mL Inject 0.4 mL subcutaneously every 24 hours for 21 days. - oxyCODONE IR (ROXICODONE) 5 mg immediate release tablet Take 1 tablet by mouth every 6 hours as needed for up to 7 days. - nitroglycerin sublingual (NITROQUICK) 0.4 mg SL tablet Dissolve 1 tablet under the tongue as needed for chest pain, may repeat every 5 minutes if no relief up to 3 times. - Amoxicillin 500 mg tablet FOR DENTAL WORK - omeprazole (PRILOSEC) 40 mg capsule Take 40 mg by mouth once daily. - vitamin D3/vitamin K2, MK4, (K2 PLUS D3 ORAL) Take 1 Dose by mouth once daily. - compounded progesterone 50 mg capsule Take 150 mg by mouth daily at bedtime. - Testosterone 12.5 mg/ 1.25 gram (1 %) glpm Apply 2 Pump as directed once daily. 0.5 MIL - ondansetron orally disintegrating (ZOFRAN ODT) 8 mg disintegrating tablet Take 1 tablet by mouth every 8 hours as needed for nausea/vomiting. - prochlorperazine (COMPAZINE) 10 mg tablet Take 1 tablet by mouth every 6 hours as needed. - ondansetron (ZOFRAN) 8 mg tablet Take 1 tablet by mouth every 8 hours as needed for nausea/vomiting. - vortioxetine (TRINTELLIX) 10 mg tablet Take 10 mg by mouth once daily. - oxybutynin ER (DITROPAN XL) 15 mg 24 hr Extended Rel Tab Take 15 mg by mouth. - amLODIPine-benazepril (LOTREL) 5-10 mg per capsule Take 1 capsule by mouth every morning. - aspirin, enteric coated (ASPIRIN, ENTERIC COATED) 81 mg EC tablet Take 81 mg by mouth once daily. - docosahexaenoic acid/epa (FISH OIL ORAL) Take 2,000 mg by mouth two times a day. - calcium carbonate/vitamin d3(CALCIUM 600 WITH VITAMIN D3 600 MG (1,500 MG)-400 UNIT CAP) Take 1 tablet by mouth once daily. Facility-Administered Medications as of 09/01/2023 - lactated ringers 1-999 mL iv bolus - vortioxetine 10 mg tab(s) (TRINTELLIX) - NaCl 0.9% iv flush bag - pantoprazole 40 mg injection (PROTONIX) - NaCl 0.9% iv infusion - acetaminophen 650 mg tab(s) (TYLENOL) - acetaminophen 650 mg CUP (TYLENOL) - ondansetron orally disintegrating 4 mg tab(s) (ZOFRAN ODT) - ondansetron (PF) 4 mg injection (ZOFRAN) - HYDROmorphone 0.2 mg injection (DILAUDID) - phenol 1 [place] (CHLORASEPTIC) - trospium 20 mg tab(s) (SANCTURA) - aspirin 81 mg chewable tab(s) - benzocaine 1 Lozenge (CHOLORASEPTIC WARMING SORE THROAT) - heparin 5,000 Units injection Problem List As Of Date 09/01/2023 Noted Resolved OSTEOARTHROS NOS-ANKLE [M19.079] 12/20/2005 Personal History of Malignant Melanoma of Skin *04/28/2009 Rectal cancer (HCC) [C20] 06/14/2023 Iron deficiency anemia, unspecified [D50.9] 07/06/2023 Atrial fibrillation (HCC) [I48.91] 08/09/2023 Essential hypertension [I10] 04/25/2017 GERD (gastroesophageal reflux disease) [K21.9] 08/09/2023 Hemorrhoids [K64.9] 08/09/2023 Hyperlipidemia [E78.5] 08/09/2023 Mixed anxiety depressive disorder [F41.8] 08/09/2023 Rectal adenocarcinoma (HCC) [C20] 08/25/2023 Ileostomy present (HCC) [Z93.2] 08/26/2023 Encounter for ostomy care education [Z71.89] 08/26/2023 08/29/2023 Small bowel obstruction (HCC) [K56.609] 08/31/2023 Ileostomy bag changed (HCC) [Z43.2] 08/31/2023 Encounter Status:Closed by COLLEEN SOLORIO on 09/01/23 Normal [facility] Erythrocyte distribution wid th Auto (RBC) [Ratio]on 09-01-2023 Erythrocyte distribution width (RBC) [Ratio] 15.2 % 11.5-15.0 [facility] Hematocrit Auto (Bld) [Volum e fraction]on 09-01-2023 Hematocrit (Bld) [Volume fraction] 35.3 % 36.0-46.0 [facility] Hemoglobin [Mass/volume] in Bloodon 09-01-2023 Hemoglobin (Bld) [Mass/Vol] 11.8 g/dL 11.5-15.5 [facility] Laboratory - Chemistry and C hemistry - challengeon 09-01-2023 Calcium [Mass/Vol] 8.8 mg/dL 8.5-10.2 [facility] Chloride [Moles/Vol] 101 mmol/L 97-105 [facility] CO2 [Moles/Vol] 27 mmol/L 22-30 [facility] Creatinine [Mass/Vol] 0.77 mg/dL 0.58-0.96 [facility] Glucose [Mass/Vol] 95 mg/dL 74-99 [facility] Comment on above: The [place] Diabete s Association (ADA) provides guidance for [...] Standards of Medical Care in Diabetes 2016, [place] Diabetes [employer]. Diabetes Care. 2016.39(Suppl 1). Magnesium [Mass/Vol] 2.2 mg/dL 1.7-2.3 [facility] Potassium [Moles/Vol] 4.2 mmol/L 3.7-5.1 [facility] Sodium [Moles/Vol] 141 mmol/L 136-144 [facility] Urea nitrogen [Mass/Vol] 22 mg/dL 7-21 [facility] Leukocytes [#/volume] correc french for nucleated erythrocytes in Blood by Automated counon 09-01-2023 WBC corrected for nucl RBC Auto (Bld) [#/Vol] 5.99 k/uL 3.70-11.00 [facility] MCH Auto (RBC) [Entitic mass ]on 09-01-2023 MCH (RBC) [Entitic mass] 29.6 pg 26.0-34.0 [facility] MCHC Auto (RBC) [Mass/Vol]on 09-01-2023 MCHC (RBC) [Mass/Vol] 33.4 g/dL 30.5-36.0 [facility] MCV Auto (RBC) [Entitic vol] on 09-01-2023 MCV (RBC) [Entitic vol] 88.7 fL 80.0-100.0 [facility] Magnesium SerPl-mCncon 09-01 Magnesium [Mass/Vol] 2.2 mg/dL Normal 1.7-2.3 [facility] Comment on above: Order Comment: Mason simpson Type: BLOOD SPECIMENOrdering Facility: [facility] Address: [address] [place] [address] Performed By: #### 2 4321-2, 2776-07, ####CORNEL[facility]US LABORATORYCLIA [id number] [place] [address] [place] No Panel Informationon 09-01 Estimated GFR (CKD-EPI) 83 mL/min/1.73m??? >=60 [facility] Comment on above: Estimated Glomerular Filtration Rate [...] actual GFR. Phosphorus Level 4.3 mg/dL 2.7-4.8 [facility] Nucleated RBC Auto (Bld) [#/ Vol]on 09-01-2023 Nucleated RBC (Bld) [#/Vol] 10*3/uL <0.01 [facility] Phosphate SerPl-mCncon 09-01 Phosphate [Mass/Vol] 4.3 mg/dL Normal 2.7-4.8 [facility] Comment on above: Order Comment: Mason simpson Type: BLOOD SPECIMENOrdering Facility: [facility] Address: [address] [place] [address] Performed By: #### 2 4321-2, 2776-07, ####CORNELIUS LABORATORYCLIA [id number] [place] [id number] [place] Platelet mean volume Auto (B ld) [Entitic vol]on 09-01-2023 Platelet mean volume (Bld) [Entitic vol] 8.5 fL 9.0-12.7 [facility] Platelets Auto (Bld) [#/Vol] on 09-01-2023 Platelets (Bld) [#/Vol] 297 10*3/uL 150-400 [facility] RBC Auto (Bld) [#/Vol]on RBC (Bld) [#/Vol] 3.98 10*6/uL 3.90-5.20 [facility] Serum or plasma anion gap de terminationon 09-01-2023 Anion gap [Moles/Vol] 13 mmol/L 9-18 [facility] ALLIED HEALTHon 08-31-2023 ALLIED HEALTH Normal [facility] HEALTH Normal [facility] Automated epithelial cells c ount in urine sediment (number/area)on 08-31-2023 Epithelial cells Auto (Urine sed) [#/Area] Few [HPF] [facility] Automated leukocytes count i n urine sediment (number/area)on 08-31-2023 WBC Auto (Urine sed) [#/Area] 3-5 /HPF 0-3 /HPF [facility] Automated urine hyaline cast s count (number/volume)on 08-31-2023 Hyaline casts Auto (U) [#/Vol] 4-10 /LPF 0 /LPF [facility] Automated urine specific gra vity by refractometryon 08-31-2023 Specific gravity Refractometry automated (U) [Rel density] >1.050 1.005-1.03 0 [facility] Basophils Auto (Bld) [#/Vol] on 08-31-2023 Basophils (Bld) [#/Vol] 10*3/uL <0.11 [facility] Basophils/100 WBC Auto (Bld) on 08-31-2023 Basophils/100 WBC (Bld) 0.2 % [facility] Bilirubin Auto test strip (U ) [Mass/Vol]on 08-31-2023 Bilirubin (U) [Mass/Vol] Negative Negative [facility] Blood manual differential co mment interpretation narrativeon 08-31-2023 Manual differential comment Ankush (Bld) [Interp] Auto [facility] CASE MGT INIT ASSESon 2023 CASE MGT INIT ASSES Normal [facility] CBC W Auto Differential pane l (Bld)on 08-31-2023 Basophils (Bld) [#/Vol] 10*3/uL Normal <0.11 [facility] Comment on above: Order Comment: Speci men Type: BLOOD SPECIMENOrdering Facility: [facility] Address: [address] [place] [address] Performed By: #### 5 7021-8 ####CORNELIUS LABORATORYCLIA [id number] [place] [id number] [place] Basophils/100 WBC (Bld) 0.2 % Normal [facility] Comment on above: Order Comment: Speci men Type: BLOOD SPECIMENOrdering Facility: [facility] Address: [address] [place] [address] Performed By: #### 5 7021-8 ####CORNELIUS LABORATORYCLIA [id number] [address] STATES [facility] Differential cell count method Nom (Bld) Auto Normal [facility] Comment on above: Order Comment: Speci men Type: BLOOD SPECIMENOrdering Facility: [facility] Address: [address] [place] [address] Performed By: #### 5 7021-8 ####[facility] LABORATORYCLIA [id number] [place] [address] [place] Eosinophils (Bld) [#/Vol] 0.09 10*3/uL Normal <0.46 [facility] Comment on above: Order Comment: Speci men Type: BLOOD SPECIMENOrdering Facility: [facility] Address: [address] [place] [address] Performed By: #### 5 7021-8 ####CORNELIUS LABORATORYCLIA [id number] [place] [id number] [place] Eosinophils/100 WBC (Bld) 1.0 % Normal [facility] Comment on above: Order Comment: Speci men Type: BLOOD SPECIMENOrdering Facility: [facility] Address: [address] [place] [address] Performed By: #### 5 7021-8 ####CORNELIUS LABORATORYCLIA [id number] [place] [address] [place] Erythrocyte distribution width (RBC) [Ratio] 14.6 % Normal 11.5-15.0 [facility] Comment on above: Order Comment: Speci men Type: BLOOD SPECIMENOrdering Facility: [facility] Address: [address] [place] [address] Performed By: #### 5 7021-8 ####CORNELIUS LABORATORYCLIA [id number] [place] [address] [place] Hematocrit (Bld) [Volume fraction] 40.9 % Normal 36.0-46.0 [facility] Comment on above: Order Comment: Speci men Type: BLOOD SPECIMENOrdering Facility: [facility] Address: [address] [place] [address] Performed By: #### 5 7021-8 ####CORNELIUS LABORATORYCLIA [id number] [address] [place] Hemoglobin (Bld) [Mass/Vol] 14.4 g/dL Normal 11.5-15.5 [facility] Comment on above: Order Comment: Speci men Type: BLOOD SPECIMENOrdering Facility: [facility] Address: [address] [place] [address] Performed By: #### 5 7021-8 ####CORNELIUS LABORATORYCLIA [id number] [address] [place] Immature granulocytes (Bld) [#/Vol] 0.08 10*3/uL Normal <0.10 [facility] Comment on above: Order Comment: Speci men Type: BLOOD SPECIMENOrdering Facility: [facility] Address: [address] [place] [address] Performed By: #### 5 7021-8 ####CORNELIUS LABORATORYCLIA [id number] [address] [place] Immature granulocytes/100 WBC (Bld) 0.9 % Normal [facility] Comment on above: Order Comment: Speci men Type: BLOOD SPECIMENOrdering Facility: [facility] Address: [address] [place] [address] Performed By: #### 5 7021-8 ####CORNELIUS LABORATORYCLIA [id number] [place] [address] [place] Lymphocytes (Bld) [#/Vol] 1.06 10*3/uL Normal 1.00-4.00 [facility] Comment on above: Order Comment: Speci men Type: BLOOD SPECIMENOrdering Facility: [facility] Address: [address] [place] [address] Performed By: #### 5 7021-8 ####CORNELIUS LABORATORYCLIA [id number] [address] STATES [facility] Lymphocytes/100 WBC (Bld) 11.4 % Normal [facility] Comment on above: Order Comment: Speci men Type: BLOOD SPECIMENOrdering Facility: [facility] Address: [address] [place] [address] Performed By: #### 5 7021-8 ####CORNELIUS LABORATORYCLIA [id number] [place] [address] [place] MCH (RBC) [Entitic mass] 29.8 pg Normal 26.0-34.0 [facility] Comment on above: Order Comment: Speci men Type: BLOOD SPECIMENOrdering Facility: [facility] Address: [address] [place] [address] Performed By: #### 5 7021-8 ####CORNELIUS LABORATORYCLIA [id number] [address] [place] MCHC (RBC) [Mass/Vol] 35.2 g/dL Normal 30.5-36.0 [facility] Comment on above: Order Comment: Speci men Type: BLOOD SPECIMENOrdering Facility: [facility] Address: [address] [place] [address] Performed By: #### 5 7021-8 ####[facility] LABORATORYCLIA [id number] [address] [place] MCV (RBC) [Entitic vol] 84.5 fL Normal 80.0-100.0 [facility] Comment on above: Order Comment: Speci men Type: BLOOD SPECIMENOrdering Facility: [facility] Address: [address] [place] [address] Performed By: #### 5 7021-8 ####CORNELIUS LABORATORYCLIA [id number] [place] [id number] [place] Monocytes (Bld) [#/Vol] 0.67 10*3/uL Normal <0.87 [facility] Comment on above: Order Comment: Speci men Type: BLOOD SPECIMENOrdering Facility: [facility] Address: [address] [place] [address] Performed By: #### 5 7021-8 ####CORNELIUS LABORATORYCLIA [id number] [place] [address] [place] Monocytes/100 WBC (Bld) 7.2 % Normal [facility] Comment on above: Order Comment: Speci men Type: BLOOD SPECIMENOrdering Facility: [facility] Address: [address] [place] [address] Performed By: #### 5 7021-8 ####CORNELIUS LABORATORYCLIA [id number] [place] [address] [place] Neutrophils (Bld) [#/Vol] 7.36 10*3/uL Normal 1.45-7.50 [facility] Comment on above: Order Comment: Speci men Type: BLOOD SPECIMENOrdering Facility: [facility] Address: [address] [place] [address] Performed By: #### 5 7021-8 ####CORNELIUS LABORATORYCLIA [id number] [place] [address] [place] Neutrophils/100 WBC (Bld) 79.3 % Normal [facility] Comment on above: Order Comment: Speci men Type: BLOOD SPECIMENOrdering Facility: [facility] Address: [address] [place] [address] Performed By: #### 5 7021-8 ####CORNELIUS LABORATORYCLIA [id number] [place] [address] [place] Nucleated RBC (Bld) [#/Vol] 10*3/uL Normal <0.01 [facility] Comment on above: Order Comment: Speci men Type: BLOOD SPECIMENOrdering Facility: [facility] Address: [address] [place] [address] Performed By: #### 5 7021-8 ####PORTER LABORATORYCLIA [id number] [place] [id number] [place] Nucleated RBC/100 WBC (Bld) [Ratio] 0.0 /100 WBC Normal [facility] Comment on above: Order Comment: Speci men Type: BLOOD SPECIMENOrdering Facility: [facility] Address: [address] [place] [address] Performed By: #### 5 7021-8 ####PORTER LABORATORYCLIA [id number] [place] [id number] [place] Platelet mean volume (Bld) [Entitic vol] 8.8 fL Low 9.0-12.7 [facility] Comment on above: Order Comment: Speci men Type: BLOOD SPECIMENOrdering Facility: [facility] Address: [address] [place] [address] Performed By: #### 5 7021-8 ####PORTER LABORATORYCLIA [id number] [place] [id number] [place] Platelets (Bld) [#/Vol] 411 10*3/uL High 150-400 [facility] Comment on above: Order Comment: Speci men Type: BLOOD SPECIMENOrdering Facility: [facility] Address: [address] [place] [address] Performed By: #### 5 7021-8 ####PORTER LABORATORYCLIA [id number] [place] [id number] [place] RBC (Bld) [#/Vol] 4.84 10*6/uL Normal 3.90-5.20 [facility] Comment on above: Order Comment: Speci men Type: BLOOD SPECIMENOrdering Facility: [facility] Address: [address] [place] [address] Performed By: #### 5 7021-8 ####PORTER LABORATORYCLIA [id number] [place] [id number] [place] WBC (Bld) [#/Vol] 9.28 10*3/uL Normal 3.70-11.00 [facility] Comment on above: Order Comment: Speci men Type: BLOOD SPECIMENOrdering Facility: [facility] Address: [facility] [place] [address] Performed By: #### 5 7021-8 ####[facility] LABORATORYCLIA [id number] [place] [address] [place] CONSULTon 08-31-2023 CONSULT Normal [facility] CT ABD/PEL W IVCONon 024 CT ABD/PEL W IVCON Normal [facility] Color Auto (U)on 08-31-2023 Color (U) Yellow Yellow [facility] Comprehensive metabolic 2000 panelon 08-31-2023 Albumin [Mass/Vol] 4.6 g/dL Normal 3.9-4.9 [facility] Comment on above: Order Comment: Speci men Type: BLOOD SPECIMENOrdering Facility: [facility] Address: [facility] [place] [address] Performed By: #### 1 9123-9, 27701-07, ####PORTER LABORATORYCLIA [id number] [place] [id number] [place] ALP [Catalytic activity/Vol] 351 U/L High 34-123 [facility] Comment on above: Order Comment: Speci men Type: BLOOD SPECIMENOrdering Facility: [facility] Address: [facility] [place] [address] Performed By: #### 1 9123-9, 27701-07, ####PORTER LABORATORYCLIA [id number] [place] [id number] [place] ALT [Catalytic activity/Vol] 178 U/L High 7-38 [facility] Comment on above: Order Comment: Speci men Type: BLOOD SPECIMENOrdering Facility: [facility] Address: [facility] [place] [address] Performed By: #### 1 9123-9, 2777, 61248-3 ####PORTER LABORATORYCLIA [id number] [place] [id number] [place] Anion gap [Moles/Vol] 19 mmol/L High 9-18 [facility] Comment on above: Order Comment: Speci men Type: BLOOD SPECIMENOrdering Facility: [facility] Address: [address] [place] [id number] Performed By: #### 1 9123-9, 2776-07, 73199-2 ####CORNELIUS LABORATORYCLIA [id number] [place] [address] [place] AST [Catalytic activity/Vol] 83 U/L High 13-35 [facility] Comment on above: Order Comment: Speci men Type: BLOOD SPECIMENOrdering Facility: [facility] Address: [address] [place] [address] Performed By: #### 1 9123-9, 2776-07, ####[facility] LABORATORYCLIA [id number] [place] [address] [place] Bilirubin [Mass/Vol] 0.5 mg/dL Normal 0.2-1.3 [facility] Comment on above: Order Comment: Speci men Type: BLOOD SPECIMENOrdering Facility: [facility] Address: [address] [place] [id number] Performed By: #### 1 9123-9, 2776-07, 61151-1 ####CORNELIUS LABORATORYCLIA [id number] [place] [id number] [place] Calcium [Mass/Vol] 10.0 mg/dL Normal 8.5-10.2 [facility] Comment on above: Order Comment: Speci men Type: BLOOD SPECIMENOrdering Facility: [facility] Address: [address] [place] [id number] Performed By: #### 1 9123-9, 27701-07, 12321-9 ####CORNELIUS LABORATORYCLIA [id number] [place] [id number] [place] Chloride [Moles/Vol] 85 mmol/L Low 97-105 [facility] Comment on above: Order Comment: Speci men Type: BLOOD SPECIMENOrdering Facility: [facility] Address: [address] [place] [address] Performed By: #### 1 9123-9, 2777, 76467-3 ####PORTER LABORATORYCLIA [id number] [place] [address] [place] CO2 [Moles/Vol] 21 mmol/L Low 22-30 [facility] Comment on above: Order Comment: Speci men Type: BLOOD SPECIMENOrdering Facility: [facility] Address: [address] [place] [address] Performed By: #### 1 9123-9, 2776-07, ####PORTER LABORATORYCLIA [id number] [place] [address] [place] Creatinine [Mass/Vol] 1.34 mg/dL High 0.58-0.96 [facility] Comment on above: Order Comment: Speci men Type: BLOOD SPECIMENOrdering Facility: [facility] Address: [address] [place] [address] Performed By: #### 1 9123-9, 2776-07, ####PORTER LABORATORYCLIA [id number] [place] [id number] [place] Creatinine and Glomerular filtration rate.predicted panel (S/P/Bld) 43 mL/min/1.73m??? Low >=60 [facility] Comment on above: Order Comment: Speci men Type: BLOOD SPECIMENOrdering Facility: [facility] Address: [address] [place] [address] Result Comment: Farhana mated Glomerular Filtration Rate [...] actual GFR. Performed By: #### 1 9123-9, 2777, 02437-7 ####PORTER LABORATORYCLIA [id number] [place] [address] [place] Glucose [Mass/Vol] 159 mg/dL High 74-99 [facility] Comment on above: Order Comment: Mason tatiana Type: BLOOD SPECIMENOrdering Facility: [facility] Address: [address] [place] [address] Result Comment: The [place] [employer] (ADA) provides guidance for cutoff [...] Standards of Medical Care in Diabetes 2016, [place] [employer]. Diabetes Care. 2016.39(Suppl 1). Performed By: #### 1 9123-9, 2777, 25261-3 ####CORNELIUS LABORATORYCLIA [id number] [place] [address] [place] Potassium [Moles/Vol] 4.2 mmol/L Normal 3.7-5.1 [facility] Comment on above: Order Comment: Mason simpson Type: BLOOD SPECIMENOrdering Facility: [facility] Address: [address] [place] [address] Performed By: #### 1 9123-9, 2777, 14399-1 ####CORNELIUS LABORATORYCLIA [id number] [place] [id number] [place] Protein [Mass/Vol] 7.4 g/dL Normal 6.3-8.0 [facility] Comment on above: Order Comment: Mason tatiana Type: BLOOD SPECIMENOrdering Facility: [facility] Address: [address] [place] [address] Performed By: #### 1 9123-9, 27701-07, 80196-9 ####CORNELIUS LABORATORYCLIA [id number] [place] [id number] [place] Sodium [Moles/Vol] 125 mmol/L Low 136-144 [facility] Comment on above: Order Comment: Speci men Type: BLOOD SPECIMENOrdering Facility: [facility] Address: [address] [place] [phone] Performed By: #### 1 9123-9, 2777-1, 38033-2 ####PORTER LABORATORYCLIA [id number] [address] Urea nitrogen [Mass/Vol] 35 mg/dL High 7 [facility] Comment on above: Order Comment: Speci men Type: BLOOD SPECIMENOrdering Facility: [facility] Address: [address] [place] [phone] Performed By: #### 1 9123-9, 2777-1, 79792-7 ####PORTER LABORATORYCLIA [id number] [place] [id number] [facility] ECG COMPLETEon 08-31-2023 ECG COMPLETE Normal [facility] ED NOTEon 08-31-2023 ED NOTE HNO ID: [id number] Author: LYUBOV PEREA RN Service: ? Author Type: Registered Nurse Type: ED Notes Filed: 08/31/2023 12:07 Note Text: Report given to KAYA Monsalve. Normal [facility] ED NOTE HNO ID: [id number] Author: DANNIELLE MOLINA RN Service: ? Author Type: Registered Nurse Type: ED Notes Filed: 08/31/2023 09:15 Note Text: Bed: 25-ED Expected date: Expected time: Means of arrival: Comments: triage Normal [facility] ED PROV NOTEon 08-31-2023 ED PROV NOTE Normal [facility] Eosinophils/100 WBC Auto (Bl d)on 08-31-2023 Eosinophils/100 WBC (Bld) 1.0 % [facility] Erythrocyte distribution wid th Auto (RBC) [Ratio]on 08-31-2023 Erythrocyte distribution width (RBC) [Ratio] 14.6 % 11.5-15.0 [facility] HISTORY PHYSICALon HISTORY PHYSICAL Normal [facility] Hematocrit Auto (Bld) [Volum e fraction]on 08-31-2023 Hematocrit (Bld) [Volume fraction] 40.9 % 36.0-46.0 [facility] Hemoglobin [Mass/volume] in Bloodon 08-31-2023 Hemoglobin (Bld) [Mass/Vol] 14.4 g/dL 11.5-15.5 [facility] Ketones Auto test strip (U) [Mass/Vol]on 08-31-2023 Ketones (U) [Mass/Vol] Negative Negat libby, Trace [facility] Laboratory - Chemistry and C hemistry - challengeon 08-31-2023 Albumin [Mass/Vol] 4.6 g/dL 3.9-4.9 [facility] ALP [Catalytic activity/Vol] 351 U/L 34-123 [facility] ALT [Catalytic activity/Vol] 178 U/L 7-38 [facility] AST [Catalytic activity/Vol] 83 U/L 13-35 [facility] Bilirubin [Mass/Vol] 0.5 mg/dL 0.2-1.3 [facility] Calcium [Mass/Vol] 10.0 mg/dL 8.5-10.2 [facility] Chloride [Moles/Vol] 85 mmol/L 97-105 [facility] CO2 [Moles/Vol] 21 mmol/L 22-30 [facility] Creatinine [Mass/Vol] 1.34 mg/dL 0.58-0.96 [facility] Glucose [Mass/Vol] 159 mg/dL 74-99 [facility] Comment on above: The [place] Di[employer] s Association (ADA) provides guidance for [...] Standards of Medical Care in Diabetes 2016, [employer]. Diabetes Care. 2016.39(Suppl 1). Magnesium [Mass/Vol] 1.6 mg/dL 1.7-2.3 [facility] Potassium [Moles/Vol] 4.2 mmol/L 3.7-5.1 [facility] Protein [Mass/Vol] 7.4 g/dL 6.3-8.0 [facility] Sodium [Moles/Vol] 125 mmol/L 136-144 [facility] Urea nitrogen [Mass/Vol] 35 mg/dL 7- [facility] Laboratory - Hematology and Cell countson 08-31-2023 Eosinophils (Bld) [#/Vol] 0.09 10*3/uL <0.46 [facility] Immature granulocytes (Bld) [#/Vol] 0.08 10*3/uL <0.10 [facility] Immature granulocytes/100 WBC (Bld) 0.9 % [facility] Leukocytes [#/volume] correc french for nucleated erythrocytes in Blood by Automated counon 08-31-2023 WBC corrected for nucl RBC Auto (Bld) [#/Vol] 9.28 k/uL 3.70-11.00 [facility] Lymphocytes Auto (Bld) [#/Vo l]on 08-31-2023 Lymphocytes (Bld) [#/Vol] 1.06 10*3/uL 1.00-4.00 [facility] Lymphocytes/100 WBC Auto (Bl d)on 08-31-2023 Lymphocytes/100 WBC (Bld) 11.4 % [facility] MCH Auto (RBC) [Entitic mass ]on 08-31-2023 MCH (RBC) [Entitic mass] 29.8 pg 26.0-34.0 [facility] MCHC Auto (RBC) [Mass/Vol]on 08-31-2023 MCHC (RBC) [Mass/Vol] 35.2 g/dL 30.5-36.0 [facility] MCV Auto (RBC) [Entitic vol] on 08-31-2023 MCV (RBC) [Entitic vol] 84.5 fL 80.0-100.0 [facility] Magnesium SerPl-mCncon 08-31 Magnesium [Mass/Vol] 1.6 mg/dL Low 1.7-2.3 [facility] Comment on above: Order Comment: Speci men Type: BLOOD SPECIMENOrdering Facility: [facility] Address: [address] [place] [address] Performed By: #### 1 9123-9, 2777-1, 63704-1 ####POR[facility] LABORATORYCLIA [id number] [place] [address] [place] Monocytes Auto (Bld) [#/Vol] on 08-31-2023 Monocytes (Bld) [#/Vol] 0.67 10*3/uL <0.87 [facility] Monocytes/100 WBC Auto (Bld) on 08-31-2023 Monocytes/100 WBC (Bld) 7.2 % [facility] NURSING PROGon 08-31-2023 NURSING PROG Normal [facility] NURSING PROG Normal [facility] Neutrophils Auto (Bld) [#/Vo l]on 08-31-2023 Neutrophils (Bld) [#/Vol] 7.36 10*3/uL 1.45-7.50 [facility] Neutrophils/100 WBC Auto (Bl d)on 08-31-2023 Neutrophils/100 WBC (Bld) 79.3 % [facility] No Panel Informationon 08-31 Estimated GFR (CKD-EPI) 43 mL/min/1.73m??? >=60 [facility] Comment on above: Estimated Glomerular Filtration Rate [...] actual GFR. Phosphorus Level 4.3 mg/dL 2.7-4.8 [facility] Nucleated RBC Auto (Bld) [#/ Vol]on 08-31-2023 Nucleated RBC (Bld) [#/Vol] 10*3/uL <0.01 [facility] Nucleated erythrocytes [Pres ence] in Blood by Automated counton 08-31-2023 Nucleated RBC Auto Ql (Bld) 0.0 /100{WBC} [facility] Phosphate SerPl-mCncon 02-22 -2024 Phosphate [Mass/Vol] 4.3 mg/dL Normal 2.7-4.8 [facility] Comment on above: Order Comment: Speci men Type: BLOOD SPECIMENOrdering Facility: [facility] Address: [place] [address] Performed By: #### 1 9123-9, 2777-1, 49796-7 ####PORTER LABORATORYCLIA [id number] [place] [address] [place] Platelet mean volume Auto (B ld) [Entitic vol]on 08-31-2023 Platelet mean volume (Bld) [Entitic vol] 8.8 fL 9.0-12.7 [facility] Platelets Auto (Bld) [#/Vol] on 08-31-2023 Platelets (Bld) [#/Vol] 411 10*3/uL 150-400 [facility] Protein Auto test strip (U) [Mass/Vol]on 08-31-2023 Protein (U) [Mass/Vol] Trace Trace , Negative [facility] RBC Auto (Bld) [#/Vol]on RBC (Bld) [#/Vol] 4.84 10*6/uL 3.90-5.20 [facility] Serum or plasma anion gap de terminationon 08-31-2023 Anion gap [Moles/Vol] 19 mmol/L 9-18 [facility] Specific gravity Auto test s trip (U) [Rel density]on 08-31-2023 Specific gravity (U) [Rel density] Clear Clear [facility] URINALYSIS, REFLEX MICROSCOP ICon 08-31-2023 Bacteria LM.HPF (Urine sed) [#/Area] Rare Abnormal None Seen [facility] Comment on above: Order Comment: Speci men Type: URINE SPECIMENOrdering Facility: [facility] Address: [place] [address] Performed By: #### L [id number] ####PORTER LABORATORYCLIA [id number] [place] [address] [place] Bilirubin Ql (U) Negative Normal Negative [facility] Comment on above: Order Comment: Speci men Type: URINE SPECIMENOrdering Facility: [facility] Address: [address] [place] [address] Performed By: #### L [id number] ####C[facility] LABORATORYCLIA [id number] [place] [address] [place] Clarity (Unsp spec) Clear Normal Clear [facility] Comment on above: Order Comment: Speci men Type: URINE SPECIMENOrdering Facility: [facility] Address: [address] [place] [address] Performed By: #### L [id number] ####CORNELIUS LABORATORYCLIA [id number] [place] [address] [place] Color (U) Yellow Normal Yellow [facility] Comment on above: Order Comment: Speci men Type: URINE SPECIMENOrdering Facility: [facility] Address: [address] [place] [address] Performed By: #### L [id number] ####CORNELIUS LABORATORYCLIA [id number] [place] [address] [place] Epithelial cells LM.HPF (Urine sed) [#/Area] Few Normal [facility] Comment on above: Order Comment: Speci men Type: URINE SPECIMENOrdering Facility: [facility] Address: [address] [place] [address] Performed By: #### L [id number] ####CORNELIUS LABORATORYCLIA [id number] [place] [address] [place] Glucose Test strip (U) [Mass/Vol] Negative Normal Trace, Negative [facility] Comment on above: Order Comment: Speci men Type: URINE SPECIMENOrdering Facility: [facility] Address: [address] [place] [address] Performed By: #### L [id number] ####CORNELIUS LABORATORYCLIA [id number] [place] [address] [place] Hemoglobin Ql (U) Trace Normal Negative, Trace [facility] Comment on above: Order Comment: Speci men Type: URINE SPECIMENOrdering Facility: [facility] Address: [address] [place] [address] Performed By: #### L [id number] ####PORTER LABORATORYCLIA [id number] [place] [address] [place] Hyaline casts (Urine sed) [#/Area] 4-10 /LPF Abnormal 0 /LPF [facility] Comment on above: Order Comment: Speci men Type: URINE SPECIMENOrdering Facility: [facility] Address: [address] [place] [address] Performed By: #### L [id number] ####PORTER LABORATORYCLIA [id number] [place] [address] [place] Ketones Ql (U) Negative Normal Negative, Trace [facility] Comment on above: Order Comment: Speci men Type: URINE SPECIMENOrdering Facility: [facility] Address: [address] [place] [address] Performed By: #### L [id number] ####PORTER LABORATORYCLIA [id number] [address] [place] Leukocyte esterase Test strip Ql (U) Negative Normal Negative, 25 Melody/uL [facility] Comment on above: Order Comment: Speci men Type: URINE SPECIMENOrdering Facility: [facility] Address: [address] [place] [address] Performed By: #### L [id number] ####PORTER LABORATORYCLIA [id number] [address] [place] Nitrite Ql (U) Negative Normal Negative [facility] Comment on above: Order Comment: Speci men Type: URINE SPECIMENOrdering Facility: [facility] Address: [address] [place] [address] Performed By: #### L [id number] ####PORTER LABORATORYCLIA [id number] [address] [place] pH (U) 6.0 [pH] Normal 5.0-8.0 [facility] Comment on above: Order Comment: Speci men Type: URINE SPECIMENOrdering Facility: [facility] Address: [address] [place] [address] Performed By: #### L [id number] ####PORTER LABORATORYCLIA [id number] [place] [address] [place] Protein (U) [Mass/Vol] Trace Normal Trace , Negative [facility] Comment on above: Order Comment: Speci men Type: URINE SPECIMENOrdering Facility: [facility] Address: [address] [place] [address] Performed By: #### L [id number] ####PORTER LABORATORYCLIA [id number] [place] [address] [place] RBC LM.HPF (Urine sed) [#/Area] 3-5 /HPF Abnormal 0-3 /HPF [facility] Comment on above: Order Comment: Speci men Type: URINE SPECIMENOrdering Facility: [facility] Address: [address] [place] [address] Performed By: #### L [id number] ####PORTER LABORATORYCLIA [id number] [place] [address] [place] Specific gravity (U) [Rel density] >1.050 High 1.005-1.03 0 [facility] Comment on above: Order Comment: Speci men Type: URINE SPECIMENOrdering Facility: [facility] Address: [address] [place] [address] Performed By: #### L [id number] ####PORTER LABORATORYCLIA [id number] [address] [place] Urobilinogen Ql (U) Normal Normal Normal [facility] Comment on above: Order Comment: Speci men Type: URINE SPECIMENOrdering Facility: [facility] Address: [address] [place] [address] Performed By: #### L [id number] ####PORTER LABORATORYCLIA [id number] [place] [address] [place] WBC LM.HPF (Urine sed) [#/Area] 0-5 /HPF Normal 0-5 /HPF [facility] Comment on above: Order Comment: Speci men Type: URINE SPECIMENOrdering Facility: [facility] Address: [address] [place] [address] Performed By: #### L [id number] ####CORNELIUS LABORATORYCLIA [id number] [place] [address] [place] Urine bacteria detection by automated methodon 08-31-2023 Bacteria Auto Ql (U) Rare [HPF] None Seen [facility] Urine glucose measurement by test strip (mass/volume)on 08-31-2023 Glucose Test strip (U) [Mass/Vol] Negative Trace, Negative [facility] Urine hemoglobin detection b y automated test stripon 08-31-2023 Hemoglobin Auto test strip Ql (U) Trace Negative, Trace [facility] Urine nitrite detection by a utomated test stripon 08-31-2023 Nitrite Auto test strip Ql (U) Negative Negative [facility] Urine sediment leukocyte cou nt by microscopy (number/high power field)on 08-31-2023 WBC LM.HPF (Urine sed) [#/Area] 0-5 /HPF 0-5 /HPF [facility] Urobilinogen Auto test strip (U) [Mass/Vol]on 08-31-2023 Urobilinogen (U) [Mass/Vol] Normal Normal [facility] XR ABDOMEN 1V SUPINEon 08-31 XR ABDOMEN 1V SUPINE Normal [facility] pH Auto test strip (U)on pH (U) 6.0 [pH] 5.0-8.0 [facility] Basic metabolic 2000 panelon 08-30-2023 Anion gap [Moles/Vol] 10 mmol/L Normal 9-18 [facility] Comment on above: Order Comment: Speci men Type: BLOOD SPECIMENOrdering Facility: [facility] Address: [address] [place] [address] Performed By: #### 2 4321-2 ####CORNELIUS LABORATORYCLIA [id number] [place] [id number] [place] Calcium [Mass/Vol] 9.5 mg/dL Normal 8.5-10.2 [facility] Comment on above: Order Comment: Speci men Type: BLOOD SPECIMENOrdering Facility: [facility] Address: [address] [place], [place] [address] Performed By: #### 2 4321-2 ####CORNELIUS LABORATORYCLIA [id number] [place] [address] [place] Chloride [Moles/Vol] 100 mmol/L Normal 97-105 [facility] Comment on above: Order Comment: Speci men Type: BLOOD SPECIMENOrdering Facility: [facility] Address: [address] [place] [address] Performed By: #### 2 4321-2 ####CORNELIUS LABORATORYCLIA [id number] [place] [id number] [place] CO2 [Moles/Vol] 24 mmol/L Normal 22-30 [facility] Comment on above: Order Comment: Speci men Type: BLOOD SPECIMENOrdering Facility: [facility] Address: [address] [place] [address] Performed By: #### 2 4321-2 ####[facility] LABORATORYCLIA [id number] [place] [address] [place] Creatinine [Mass/Vol] 0.63 mg/dL Normal 0.58-0.96 [facility] Comment on above: Order Comment: Speci men Type: BLOOD SPECIMENOrdering Facility: [facility] Address: [address] [place] [address] Performed By: #### 2 4321-2 ####[facility] LABORATORYCLIA [id number] [address] Creatinine and Glomerular filtration rate.predicted panel (S/P/Bld) 96 mL/min/1.73m??? Normal >=60 [facility] Comment on above: Order Comment: Speci men Type: BLOOD SPECIMENOrdering Facility: [facility] Address: [address] [place] [address] Result Comment: Farhana mated Glomerular Filtration Rate [...] Performed By: #### 2 4321-2 ####CORNELIUS LABORATORYCLIA [id number] [place] [address] [place] Glucose [Mass/Vol] 119 mg/dL High 74-99 [facility] Comment on above: Order Comment: Mason simpson Type: BLOOD SPECIMENOrdering Facility: [facility] Address: [address] [place] [address] Result Comment: The [place] Diabetes Association (ADA) provides guidance for cutoff [...] Standards of Medical Care in Diabetes 2016, [place] Diabetes [employer]. Diabetes Care. 2016.39(Suppl 1). Performed By: #### 2 4321-2 ####PORTER LABORATORYCLIA [id number] [place] [address] [place] Potassium [Moles/Vol] 4.2 mmol/L Normal 3.7-5.1 [facility] Comment on above: Order Comment: Mason simpson Type: BLOOD SPECIMENOrdering Facility: [facility] Address: [address] [place] [address] Performed By: #### 2 4321-2 ####PORTER LABORATORYCLIA [id number] [place] [id number] [place] Sodium [Moles/Vol] 134 mmol/L Low 136-144 [facility] Comment on above: Order Comment: Moyi men Type: BLOOD SPECIMENOrdering Facility: [facility] Address: [address] [place] [address] Performed By: #### 2 4321-2 ####PORTER LABORATORYCLIA [id number] [place] [address] [place] Urea nitrogen [Mass/Vol] 21 mg/dL Normal 7-21 [facility] Comment on above: Order Comment: Speci men Type: BLOOD SPECIMENOrdering Facility: [facility] Address: [address] [place] [address] Performed By: #### 2 4321-2 ####CORNELIUS LABORATORYCLIA [id number] [place] [address] [place] Basophils Auto (Bld) [#/Vol] on 08-30-2023 Basophils (Bld) [#/Vol] 0.03 10*3/uL <0.11 [facility] Basophils/100 WBC Auto (Bld) on 08-30-2023 Basophils/100 WBC (Bld) 0.4 % [facility] Blood manual differential co mment interpretation narrativeon 08-30-2023 Manual differential comment Ankush (Bld) [Interp] Auto [facility] CASE MANAGEMon 08-30-2023 CASE MANAGEM Normal [facility] CBC W Auto Differential pane l (Bld)on 08-30-2023 Basophils (Bld) [#/Vol] 0.03 10*3/uL Normal <0.11 [facility] Comment on above: Order Comment: Speci men Type: BLOOD SPECIMENOrdering Facility: [facility] Address: [address] [place] [address] Performed By: #### 5 7021-8 ####CORNELIUS LABORATORYCLIA [id number] [place] [address] [place] Basophils/100 WBC (Bld) 0.4 % Normal [facility] Comment on above: Order Comment: Speci men Type: BLOOD SPECIMENOrdering Facility: [facility] Address: [address] [place] [address] Performed By: #### 5 7021-8 ####CORNELIUS LABORATORYCLIA [id number] [place] [id number] [place] Differential cell count method Nom (Bld) Auto Normal [facility] Comment on above: Order Comment: Speci men Type: BLOOD SPECIMENOrdering Facility: [facility] Address: [address] [place] [address] Performed By: #### 5 7021-8 ####CORNELIUS LABORATORYCLIA [id number] [place] [address] [place] Eosinophils (Bld) [#/Vol] 0.46 10*3/uL High <0.46 [facility] Comment on above: Order Comment: Speci men Type: BLOOD SPECIMENOrdering Facility: [facility] Address: [address] [place] [address] Performed By: #### 5 7021-8 ####[facility] LABORATORYCLIA [id number] [place] [address] [place] Eosinophils/100 WBC (Bld) 6.5 % Normal [facility] Comment on above: Order Comment: Speci men Type: BLOOD SPECIMENOrdering Facility: [facility] Address: [address] [place] [address] Performed By: #### 5 7021-8 ####[facility] LABORATORYCLIA [id number] [place] [address] [place] Erythrocyte distribution width (RBC) [Ratio] 15.1 % High 11.5-15.0 [facility] Comment on above: Order Comment: Speci men Type: BLOOD SPECIMENOrdering Facility: [facility] Address: [address] [place] [address] Performed By: #### 5 7021-8 ####[facility] LABORATORYCLIA [id number] [address] [place] Hematocrit (Bld) [Volume fraction] 37.5 % Normal 36.0-46.0 [facility] Comment on above: Order Comment: Speci men Type: BLOOD SPECIMENOrdering Facility: [facility] Address: [address] [place] [address] Performed By: #### 5 7021-8 ####[facility] LABORATORYCLIA [id number] [place] [address] [place] Hemoglobin (Bld) [Mass/Vol] 12.6 g/dL Normal 11.5-15.5 [facility] Comment on above: Order Comment: Speci men Type: BLOOD SPECIMENOrdering Facility: [facility] Address: [address] [place] [address] Performed By: #### 5 7021-8 ####CORNELIUS LABORATORYCLIA [id number] [place] [id number] [place] Immature granulocytes (Bld) [#/Vol] 0.03 10*3/uL Normal <0.10 [facility] Comment on above: Order Comment: Speci men Type: BLOOD SPECIMENOrdering Facility: [facility] Address: [address] [place] [address] Performed By: #### 5 7021-8 ####[facility] LABORATORYCLIA [id number] [place] [address] [place] Immature granulocytes/100 WBC (Bld) 0.4 % Normal [facility] Comment on above: Order Comment: Speci men Type: BLOOD SPECIMENOrdering Facility: [facility] Address: [address] [place] [address] Performed By: #### 5 7021-8 ####CORNELIUS LABORATORYCLIA [id number] [place] [address] [place] Lymphocytes (Bld) [#/Vol] 1.01 10*3/uL Normal 1.00-4.00 [facility] Comment on above: Order Comment: Speci men Type: BLOOD SPECIMENOrdering Facility: [facility] Address: [address] [place] [address] Performed By: #### 5 7021-8 ####CORNELIUS LABORATORYCLIA [id number] [address] [place] Lymphocytes/100 WBC (Bld) 14.2 % Normal [facility] Comment on above: Order Comment: Speci men Type: BLOOD SPECIMENOrdering Facility: [facility] Address: [address] [place] [address] Performed By: #### 5 7021-8 ####[facility] LABORATORYCLIA [id number] [place] [address] [place] MCH (RBC) [Entitic mass] 29.6 pg Normal 26.0-34.0 [facility] Comment on above: Order Comment: Speci men Type: BLOOD SPECIMENOrdering Facility: [facility] Address: [address] [place], [place] [address] Performed By: #### 5 7021-8 ####[facility] LABORATORYCLIA [id number] [place] [id number] [place] MCHC (RBC) [Mass/Vol] 33.6 g/dL Normal 30.5-36.0 [facility] Comment on above: Order Comment: Speci men Type: BLOOD SPECIMENOrdering Facility: [facility] Address: [address] [place] [address] Performed By: #### 5 7021-8 ####[facility] LABORATORYCLIA [id number] [place] [id number] [place] MCV (RBC) [Entitic vol] 88.0 fL Normal 80.0-100.0 [facility] Comment on above: Order Comment: Speci men Type: BLOOD SPECIMENOrdering Facility: [facility] Address: [address] [place] [address] Performed By: #### 5 7021-8 ####[facility] LABORATORYCLIA [id number] [place] [address] [place] Monocytes (Bld) [#/Vol] 0.70 10*3/uL Normal <0.87 [facility] Comment on above: Order Comment: Speci men Type: BLOOD SPECIMENOrdering Facility: [facility] Address: [address] [place] [address] Performed By: #### 5 7021-8 ####[facility] LABORATORYCLIA [id number] [place] [id number] [place] Monocytes/100 WBC (Bld) 9.8 % Normal [facility] Comment on above: Order Comment: Speci men Type: BLOOD SPECIMENOrdering Facility: [facility] Address: [address] [place] [address] Performed By: #### 5 7021-8 ####[facility] LABORATORYCLIA [id number] [place] [id number] [place] Neutrophils (Bld) [#/Vol] 4.89 10*3/uL Normal 1.45-7.50 [facility] Comment on above: Order Comment: Speci men Type: BLOOD SPECIMENOrdering Facility: [facility] Address: [address] [place] [address] Performed By: #### 5 7021-8 ####CORNELIUS LABORATORYCLIA [id number] [place] [id number] [place] Neutrophils/100 WBC (Bld) 68.7 % Normal [facility] Comment on above: Order Comment: Speci men Type: BLOOD SPECIMENOrdering Facility: [facility] Address: [address] [place] [address] Performed By: #### 5 7021-8 ####[facility] LABORATORYCLIA [id number] [place] [address] [place] Nucleated RBC (Bld) [#/Vol] 10*3/uL Normal <0.01 [facility] Comment on above: Order Comment: Speci men Type: BLOOD SPECIMENOrdering Facility: [facility] Address: [address] [place] [address] Performed By: #### 5 7021-8 ####CORNEL[facility] LABORATORYCLIA [id number] [place] [address] [place] Nucleated RBC/100 WBC (Bld) [Ratio] 0.0 /100 WBC Normal [facility] Comment on above: Order Comment: Speci men Type: BLOOD SPECIMENOrdering Facility: [facility] Address: [address] [place] [address] Performed By: #### 5 7021-8 ####CORNELIUS LABORATORYCLIA [id number] [place] [address] [place] Platelet mean volume (Bld) [Entitic vol] 8.9 fL Low 9.0-12.7 [facility] Comment on above: Order Comment: Speci men Type: BLOOD SPECIMENOrdering Facility: [facility] Address: [address] [place] [address] Performed By: #### 5 7021-8 ####C[facility] LABORATORYCLIA [id number] [place] [address] [place] Platelets (Bld) [#/Vol] 313 10*3/uL Normal 150-400 [facility] Comment on above: Order Comment: Speci men Type: BLOOD SPECIMENOrdering Facility: [facility] Address: [address] [place] [address] Performed By: #### 5 7021-8 ####PORTER LABORATORYCLIA [id number] [place] [address] [place] RBC (Bld) [#/Vol] 4.26 10*6/uL Normal 3.90-5.20 [facility] Comment on above: Order Comment: Speci men Type: BLOOD SPECIMENOrdering Facility: [facility] Address: [address] [place] [address] Performed By: #### 5 7021-8 ####PORTER LABORATORYCLIA [id number] [place] [id number] [place] WBC (Bld) [#/Vol] 7.12 10*3/uL Normal 3.70-11.00 [facility] Comment on above: Order Comment: Speci men Type: BLOOD SPECIMENOrdering Facility: [facility] Address: [address] [place] [address] Performed By: #### 5 7021-8 ####PORTER LABORATORYCLIA [id number] [place] [id number] [place] CNDSon 08-30-2023 CNDS Normal [facility] Eosinophils/100 WBC Auto (Bl d)on 08-30-2023 Eosinophils/100 WBC (Bld) 6.5 % [facility] Erythrocyte distribution wid th Auto (RBC) [Ratio]on 08-30-2023 Erythrocyte distribution width (RBC) [Ratio] 15.1 % 11.5-15.0 [facility] Hematocrit Auto (Bld) [Volum e fraction]on 08-30-2023 Hematocrit (Bld) [Volume fraction] 37.5 % 36.0-46.0 [facility] Hemoglobin [Mass/volume] in Bloodon 08-30-2023 Hemoglobin (Bld) [Mass/Vol] 12.6 g/dL 11.5-15.5 [facility] Laboratory - Chemistry and C hemistry - challengeon 08-30-2023 Calcium [Mass/Vol] 9.5 mg/dL 8.5-10.2 [facility] Chloride [Moles/Vol] 100 mmol/L 97-105 [facility] CO2 [Moles/Vol] 24 mmol/L 22-30 [facility] Creatinine [Mass/Vol] 0.63 mg/dL 0.58-0.96 [facility] Glucose [Mass/Vol] 119 mg/dL 74-99 [facility] Comment on above: The [place] Diabete s Association (ADA) provides guidance for [...] Standards of Medical Care in Diabetes 2016, [employer]. Diabetes Care. 2016.39(Suppl 1). Potassium [Moles/Vol] 4.2 mmol/L 3.7-5.1 [facility] Sodium [Moles/Vol] 134 mmol/L 136-144 [facility] Urea nitrogen [Mass/Vol] 21 mg/dL 01-27 [facility] Laboratory - Hematology and Cell countson 08-30-2023 Eosinophils (Bld) [#/Vol] 0.46 10*3/uL <0.46 [facility] Immature granulocytes (Bld) [#/Vol] 0.03 10*3/uL <0.10 [facility] Immature granulocytes/100 WBC (Bld) 0.4 % [facility] Leukocytes [#/volume] correc french for nucleated erythrocytes in Blood by Automated counon 08-30-2023 WBC corrected for nucl RBC Auto (Bld) [#/Vol] 7.12 k/uL 3.70-11.00 [facility] Lymphocytes Auto (Bld) [#/Vo l]on 08-30-2023 Lymphocytes (Bld) [#/Vol] 1.01 10*3/uL 1.00-4.00 [facility] Lymphocytes/100 WBC Auto (Bl d)on 08-30-2023 Lymphocytes/100 WBC (Bld) 14.2 % [facility] MCH Auto (RBC) [Entitic mass ]on 08-30-2023 MCH (RBC) [Entitic mass] 29.6 pg 26.0-34.0 [facility] MCHC Auto (RBC) [Mass/Vol]on 08-30-2023 MCHC (RBC) [Mass/Vol] 33.6 g/dL 30.5-36.0 [facility] MCV Auto (RBC) [Entitic vol] on 08-30-2023 MCV (RBC) [Entitic vol] 88.0 fL 80.0-100.0 [facility] Monocytes Auto (Bld) [#/Vol] on 08-30-2023 Monocytes (Bld) [#/Vol] 0.70 10*3/uL <0.87 [facility] Monocytes/100 WBC Auto (Bld) on 08-30-2023 Monocytes/100 WBC (Bld) 9.8 % [facility] NURSING PROGon 08-30-2023 NURSING PROG [facility] Neutrophils Auto (Bld) [#/Vo l]on 08-30-2023 Neutrophils (Bld) [#/Vol] 4.89 10*3/uL 1.45-7.50 [facility] Neutrophils/100 WBC Auto (Bl d)on 08-30-2023 Neutrophils/100 WBC (Bld) 68.7 % [facility] No Panel Informationon 08-30 Estimated GFR (CKD-EPI) 96 mL/min/1.73m??? >=60 [facility] Comment on above: Estimated Glomerular Filtration Rate [...] 08-30-2023 Nucleated RBC (Bld) [#/Vol] 10*3/uL <0.01 [facility] Nucleated erythrocytes [Pres ence] in Blood by Automated counton 08-30-2023 Nucleated RBC Auto Ql (Bld) 0.0 /100{WBC} [facility] Platelet mean volume Auto (B ld) [Entitic vol]on 08-30-2023 Platelet mean volume (Bld) [Entitic vol] 8.9 fL 9.0-12.7 [facility] Platelets Auto (Bld) [#/Vol] on 08-30-2023 Platelets (Bld) [#/Vol] 313 10*3/uL 150-400 [facility] RBC Auto (Bld) [#/Vol]on RBC (Bld) [#/Vol] 4.26 10*6/uL 3.90-5.20 [facility] Serum or plasma anion gap de terminationon 08-30-2023 Anion gap [Moles/Vol] 10 mmol/L 9-18 [facility] Basic metabolic 2000 panelon 08-29-2023 Anion gap [Moles/Vol] 12 mmol/L Normal 9-18 [facility] Comment on above: Order Comment: Speci men Type: BLOOD SPECIMENOrdering Facility: [facility] Address: [address] [place] [address] Performed By: #### 2 4321-2 ####CORNELIUS LABORATORYCLIA [id number] [place] [address] [place] Calcium [Mass/Vol] 9.1 mg/dL Normal 8.5-10.2 [facility] Comment on above: Order Comment: Speci men Type: BLOOD SPECIMENOrdering Facility: [facility] Address: [address] [place] [address] Performed By: #### 2 4321-2 ####[facility] LABORATORYCLIA [id number] [place] [id number] [place] Chloride [Moles/Vol] 106 mmol/L High 97-105 [facility] Comment on above: Order Comment: Speci men Type: BLOOD SPECIMENOrdering Facility: [facility] Address: [address] [place] [address] Performed By: #### 2 4321-2 ####PORTER LABORATORYCLIA [id number] [place] [id number] [place] CO2 [Moles/Vol] 22 mmol/L Normal 22-30 [facility] Comment on above: Order Comment: Speci men Type: BLOOD SPECIMENOrdering Facility: [facility] Address: [address] [place] [address] Performed By: #### 2 4321-2 ####PORTER LABORATORYCLIA [id number] [place] [id number] [place] Creatinine [Mass/Vol] 0.87 mg/dL Normal 0.58-0.96 [facility] Comment on above: Order Comment: Speci men Type: BLOOD SPECIMENOrdering Facility: [facility] Address: [address] [place] [address] Performed By: #### 2 4321-2 ####PORTER LABORATORYCLIA [id number] [address] OF [facility] Creatinine and Glomerular filtration rate.predicted panel (S/P/Bld) 72 mL/min/1.73m??? Normal >=60 [facility] Comment on above: Order Comment: Speci men Type: BLOOD SPECIMENOrdering Facility: [facility] Address: [address] [place] [address] Result Comment: Farhana mated Glomerular Filtration Rate [...] actual GFR. Performed By: #### 2 4321-2 ####PORTER LABORATORYCLIA [id number] [place] [id number] [place] Glucose [Mass/Vol] 109 mg/dL High 74-99 [facility] Comment on above: Order Comment: Speci men Type: BLOOD SPECIMENOrdering Facility: [facility] Address: [address] [place] [address] Result Comment: The [place] Diabetes Association (ADA) provides guidance for cutoff [...] Standards of Medical Care in Diabetes 2016, [place] [employer]. Diabetes Care. 2016.39(Suppl 1). Performed By: #### 2 4321-2 ####PORTER LABORATORYCLIA [id number] [place] [address] [place] Potassium [Moles/Vol] 4.3 mmol/L Normal 3.7-5.1 [facility] Comment on above: Order Comment: Speci men Type: BLOOD SPECIMENOrdering Facility: [facility] Address: [address] [place] [address] Performed By: #### 2 4321-2 ####PORTER LABORATORYCLIA [id number] [place] [id number] [place] Sodium [Moles/Vol] 140 mmol/L Normal 136-144 [facility] Comment on above: Order Comment: Speci men Type: BLOOD SPECIMENOrdering Facility: [facility] Address: [address] [place] [address] Performed By: #### 2 4321-2 ####PORTER LABORATORYCLIA [id number] [place] [id number] [place] Urea nitrogen [Mass/Vol] 19 mg/dL Normal 7-21 [facility] Comment on above: Order Comment: Speci men Type: BLOOD SPECIMENOrdering Facility: [facility] Address: [address] [place] [address] Performed By: #### 2 4321-2 ####PORTER LABORATORYCLIA [id number] [place] [address] [place] Basophils Auto (Bld) [#/Vol] on 08-29-2023 Basophils (Bld) [#/Vol] 10*3/uL <0.11 [facility] Basophils/100 WBC Auto (Bld) on 08-29-2023 Basophils/100 WBC (Bld) 0.3 % [facility] Blood manual differential co mment interpretation narrativeon 08-29-2023 Manual differential comment Ankush (Bld) [Interp] Auto [facility] CASE MANAGEMon 08-29-2023 CASE MANAGEM Normal [facility] CBC W Auto Differential pane l (Bld)on 08-29-2023 Basophils (Bld) [#/Vol] 10*3/uL Normal <0.11 [facility] Comment on above: Order Comment: Speci men Type: BLOOD SPECIMENOrdering Facility: [facility] Address: [address] [place] [address] Performed By: #### 5 7021-8 ####[facility] LABORATORYCLIA [id number] [place] [address] [place] Basophils/100 WBC (Bld) 0.3 % Normal [facility] Comment on above: Order Comment: Speci men Type: BLOOD SPECIMENOrdering Facility: [facility] Address: [address] [place] [address] Performed By: #### 5 7021-8 ####[facility] LABORATORYCLIA [id number] [place] [id number] [place] Differential cell count method Nom (Bld) Auto Normal [facility] Comment on above: Order Comment: Speci men Type: BLOOD SPECIMENOrdering Facility: [facility] Address: [address] [place] [address] Performed By: #### 5 7021-8 ####[facility] LABORATORYCLIA [id number] [place] [id number] [place] Eosinophils (Bld) [#/Vol] 0.44 10*3/uL Normal <0.46 [facility] Comment on above: Order Comment: Speci men Type: BLOOD SPECIMENOrdering Facility: [facility] Address: [address] [place] [address] Performed By: #### 5 7021-8 ####CORNELIUS LABORATORYCLIA [id number] [place] [id number] [place] Eosinophils/100 WBC (Bld) 6.6 % Normal [facility] Comment on above: Order Comment: Speci men Type: BLOOD SPECIMENOrdering Facility: [facility] Address: [address] [place] [address] Performed By: #### 5 7021-8 ####[facility] LABORATORYCLIA [id number] [place] [address] [place] Erythrocyte distribution width (RBC) [Ratio] 15.0 % Normal 11.5-15.0 [facility] Comment on above: Order Comment: Speci men Type: BLOOD SPECIMENOrdering Facility: [facility] Address: [address] [place] [address] Performed By: #### 5 7021-8 ####CORNELIUS LABORATORYCLIA [id number] [place] [address] [place] Hematocrit (Bld) [Volume fraction] 36.4 % Normal 36.0-46.0 [facility] Comment on above: Order Comment: Speci men Type: BLOOD SPECIMENOrdering Facility: [facility] Address: [address] [place] [address] Performed By: #### 5 7021-8 ####CORNELIUS LABORATORYCLIA [id number] [place] [id number] [place] Hemoglobin (Bld) [Mass/Vol] 11.9 g/dL Normal 11.5-15.5 [facility] Comment on above: Order Comment: Speci men Type: BLOOD SPECIMENOrdering Facility: [facility] Address: [address] [place] [address] Performed By: #### 5 7021-8 ####CORNELIUS LABORATORYCLIA [id number] [place] [address] [place] Immature granulocytes (Bld) [#/Vol] 0.03 10*3/uL Normal <0.10 [facility] Comment on above: Order Comment: Speci men Type: BLOOD SPECIMENOrdering Facility: [facility] Address: [address] [place] [address] Performed By: #### 5 7021-8 ####[facility] LABORATORYCLIA [id number] [place] [address] [place] Immature granulocytes/100 WBC (Bld) 0.4 % Normal [facility] Comment on above: Order Comment: Speci men Type: BLOOD SPECIMENOrdering Facility: [facility] Address: [address] [place] [address] Performed By: #### 5 7021-8 ####[facility] LABORATORYCLIA [id number] [place] [address] [place] Lymphocytes (Bld) [#/Vol] 0.73 10*3/uL Low 1.00-4.00 [facility] Comment on above: Order Comment: Speci men Type: BLOOD SPECIMENOrdering Facility: [facility] Address: [address] [place] [address] Performed By: #### 5 7021-8 ####[facility] LABORATORYCLIA [id number] [place] [address] [place] Lymphocytes/100 WBC (Bld) 10.9 % Normal [facility] Comment on above: Order Comment: Speci men Type: BLOOD SPECIMENOrdering Facility: [facility] Address: [address] [place] [address] Performed By: #### 5 7021-8 ####[facility] LABORATORYCLIA [id number] [place] [address] [place] MCH (RBC) [Entitic mass] 29.6 pg Normal 26.0-34.0 [facility] Comment on above: Order Comment: Speci men Type: BLOOD SPECIMENOrdering Facility: [facility] Address: [address] [place] [address] Performed By: #### 5 7021-8 ####[facility] LABORATORYCLIA [id number] [place] [address] [place] MCHC (RBC) [Mass/Vol] 32.7 g/dL Normal 30.5-36.0 [facility] Comment on above: Order Comment: Speci men Type: BLOOD SPECIMENOrdering Facility: [facility] Address: [address] [place] [address] Performed By: #### 5 7021-8 ####CORNELIUS LABORATORYCLIA [id number] [place] [id number] [place] MCV (RBC) [Entitic vol] 90.5 fL Normal 80.0-100.0 [facility] Comment on above: Order Comment: Speci men Type: BLOOD SPECIMENOrdering Facility: [facility] Address: [address] [place] [address] Performed By: #### 5 7021-8 ####[facility] LABORATORYCLIA [id number] [place] [address] [place] Monocytes (Bld) [#/Vol] 0.59 10*3/uL Normal <0.87 [facility] Comment on above: Order Comment: Speci men Type: BLOOD SPECIMENOrdering Facility: [facility] Address: [address] [place] [address] Performed By: #### 5 7021-8 ####[facility] LABORATORYCLIA [id number] [place] [address] [place] Monocytes/100 WBC (Bld) 8.8 % Normal [facility] Comment on above: Order Comment: Speci men Type: BLOOD SPECIMENOrdering Facility: [facility] Address: [address] [place] [address] Performed By: #### 5 7021-8 ####CORNELIUS LABORATORYCLIA [id number] [place] [address] [place] Neutrophils (Bld) [#/Vol] 4.87 10*3/uL Normal 1.45-7.50 [facility] Comment on above: Order Comment: Speci men Type: BLOOD SPECIMENOrdering Facility: [facility] Address: [address] [place] [address] Performed By: #### 5 7021-8 ####CORNELIUS LABORATORYCLIA [id number] [place] [address] [place] Neutrophils/100 WBC (Bld) 73.0 % Normal [facility] Comment on above: Order Comment: Speci men Type: BLOOD SPECIMENOrdering Facility: [facility] Address: [address] [place] [address] Performed By: #### 5 7021-8 ####CORNELIUS LABORATORYCLIA [id number] [place] [address] [place] Nucleated RBC (Bld) [#/Vol] 10*3/uL Normal <0.01 [facility] Comment on above: Order Comment: Speci men Type: BLOOD SPECIMENOrdering Facility: [facility] Address: [address] [place] [address] Performed By: #### 5 7021-8 ####CORNELIUS LABORATORYCLIA [id number] [place] [address] [place] Nucleated RBC/100 WBC (Bld) [Ratio] 0.0 /100 WBC Normal [facility] Comment on above: Order Comment: Speci men Type: BLOOD SPECIMENOrdering Facility: [facility] Address: [address] [place] [address] Performed By: #### 5 7021-8 ####CORNELIUS LABORATORYCLIA [id number] [place] [address] [place] Platelet mean volume (Bld) [Entitic vol] 8.9 fL Low 9.0-12.7 [facility] Comment on above: Order Comment: Speci men Type: BLOOD SPECIMENOrdering Facility: [facility] Address: [address] [place] [address] Performed By: #### 5 7021-8 ####CORNELIUS LABORATORYCLIA [id number] [place] [id number] [place] Platelets (Bld) [#/Vol] 266 10*3/uL Normal 150-400 [facility] Comment on above: Order Comment: Speci men Type: BLOOD SPECIMENOrdering Facility: [facility] Address: [address] [place] [address] Performed By: #### 5 7021-8 ####[facility] LABORATORYCLIA [id number] [place] [id number] [place] RBC (Bld) [#/Vol] 4.02 10*6/uL Normal 3.90-5.20 [facility] Comment on above: Order Comment: Speci men Type: BLOOD SPECIMENOrdering Facility: [facility] Address: [address] [place] [address] Performed By: #### 5 7021-8 ####PORTER LABORATORYCLIA [id number] [place] [id number] [facility] [place] WBC (Bld) [#/Vol] 6.68 10*3/uL Normal 3.70-11.00 [facility] Comment on above: Order Comment: Speci men Type: BLOOD SPECIMENOrdering Facility: [facility] Address: [address] [place] [address] Performed By: #### 5 7021-8 ####PORTER LABORATORYCLIA [id number] [place] [id number] [place] CONSULTon 08-29-2023 CONSULT Normal [facility] Eosinophils/100 WBC Auto (Bl d)on 08-29-2023 Eosinophils/100 WBC (Bld) 6.6 % [facility] Erythrocyte distribution wid th Auto (RBC) [Ratio]on 08-29-2023 Erythrocyte distribution width (RBC) [Ratio] 15.0 % 11.5-15.0 [facility] Hematocrit Auto (Bld) [Volum e fraction]on 08-29-2023 Hematocrit (Bld) [Volume fraction] 36.4 % 36.0-46.0 [facility] Hemoglobin [Mass/volume] in Bloodon 08-29-2023 Hemoglobin (Bld) [Mass/Vol] 11.9 g/dL 11.5-15.5 [facility] Laboratory - Chemistry and C hemistry - challengeon 08-29-2023 Calcium [Mass/Vol] 9.1 mg/dL 8.5-10.2 [facility] Chloride [Moles/Vol] 106 mmol/L 97-105 [facility] CO2 [Moles/Vol] 22 mmol/L 22-30 [facility] Creatinine [Mass/Vol] 0.87 mg/dL 0.58-0.96 [facility] Glucose [Mass/Vol] 109 mg/dL 74-99 [facility] Comment on above: The [place] Diabete s Association (ADA) provides guidance for [...] Standards of Medical Care in Diabetes 2016, [place] [employer]. Diabetes Care. 2016.39(Suppl 1). Potassium [Moles/Vol] 4.3 mmol/L 3.7-5.1 [facility] Sodium [Moles/Vol] 140 mmol/L 136-144 [facility] Urea nitrogen [Mass/Vol] 19 mg/dL 7- [facility] Laboratory - Hematology and Cell countson 08-29-2023 Eosinophils (Bld) [#/Vol] 0.44 10*3/uL <0.46 [facility] Immature granulocytes (Bld) [#/Vol] 0.03 10*3/uL <0.10 [facility] Immature granulocytes/100 WBC (Bld) 0.4 % [facility] Leukocytes [#/volume] correc french for nucleated erythrocytes in Blood by Automated counon 08-29-2023 WBC corrected for nucl RBC Auto (Bld) [#/Vol] 6.68 k/uL 3.70-11.00 [facility] Lymphocytes Auto (Bld) [#/Vo l]on 08-29-2023 Lymphocytes (Bld) [#/Vol] 0.73 10*3/uL 1.00-4.00 [facility] Lymphocytes/100 WBC Auto (Bl d)on 08-29-2023 Lymphocytes/100 WBC (Bld) 10.9 % [facility] MCH Auto (RBC) [Entitic mass ]on 08-29-2023 MCH (RBC) [Entitic mass] 29.6 pg 26.0-34.0 [facility] MCHC Auto (RBC) [Mass/Vol]on 08-29-2023 MCHC (RBC) [Mass/Vol] 32.7 g/dL 30.5-36.0 [facility] MCV Auto (RBC) [Entitic vol] on 08-29-2023 MCV (RBC) [Entitic vol] 90.5 fL 80.0-100.0 [facility] Monocytes Auto (Bld) [#/Vol] on 08-29-2023 Monocytes (Bld) [#/Vol] 0.59 10*3/uL <0.87 [facility] Monocytes/100 WBC Auto (Bld) on 08-29-2023 Monocytes/100 WBC (Bld) 8.8 % [facility] NURSING PROGon 08-29-2023 NURSING PROG Normal [facility] Neutrophils Auto (Bld) [#/Vo l]on 08-29-2023 Neutrophils (Bld) [#/Vol] 4.87 10*3/uL 1.45-7.50 [facility] Neutrophils/100 WBC Auto (Bl d)on 08-29-2023 Neutrophils/100 WBC (Bld) 73.0 % [facility] No Panel Informationon 08-29 Estimated GFR (CKD-EPI) 72 mL/min/1.73m??? >=60 [facility] Comment on above: Estimated Glomerular Filtration Rate [...] 08-29-2023 Nucleated RBC (Bld) [#/Vol] 10*3/uL <0.01 [facility] Nucleated erythrocytes [Pres ence] in Blood by Automated counton 08-29-2023 Nucleated RBC Auto Ql (Bld) 0.0 /100{WBC} [facility] Platelet mean volume Auto (B ld) [Entitic vol]on 08-29-2023 Platelet mean volume (Bld) [Entitic vol] 8.9 fL 9.0-12.7 [facility] Platelets Auto (Bld) [#/Vol] on 08-29-2023 Platelets (Bld) [#/Vol] 266 10*3/uL 150-400 [facility] RBC Auto (Bld) [#/Vol]on RBC (Bld) [#/Vol] 4.02 10*6/uL 3.90-5.20 [facility] Serum or plasma anion gap de terminationon 08-29-2023 Anion gap [Moles/Vol] 12 mmol/L - [facility] Basic metabolic 2000 panelon 08-28-2023 Anion gap [Moles/Vol] 11 mmol/L Normal 03-27 [facility] Comment on above: Order Comment: Speci men Type: BLOOD SPECIMENOrdering Facility: [facility] Address: [address] [place] [address] Performed By: #### 2 4321-2 ####POR[facility] LABORATORYCLIA [id number] [place] [address] [place] Calcium [Mass/Vol] 9.3 mg/dL Normal 8.5-10.2 [facility] Comment on above: Order Comment: Speci men Type: BLOOD SPECIMENOrdering Facility: [facility] Address: [address] [place] [address] Performed By: #### 2 4321-2 ####PORTER LABORATORYCLIA [id number] [place] [address] [place] Chloride [Moles/Vol] 107 mmol/L High 97-105 [facility] Comment on above: Order Comment: Speci men Type: BLOOD SPECIMENOrdering Facility: [facility] Address: [address] [place] [address] Performed By: #### 2 4321-2 ####PORTER LABORATORYCLIA [id number] [place] [address] [place] CO2 [Moles/Vol] 23 mmol/L Normal 22-30 [facility] Comment on above: Order Comment: Speci men Type: BLOOD SPECIMENOrdering Facility: [facility] Address: [address] [place] [address] Performed By: #### 2 4321-2 ####PORTER LABORATORYCLIA [id number] [place] [id number] [place] Creatinine [Mass/Vol] 0.78 mg/dL Normal 0.58-0.96 [facility] Comment on above: Order Comment: Speci men Type: BLOOD SPECIMENOrdering Facility: [facility] Address: [address] [place] [address] Performed By: #### 2 4321-2 ####PORTER LABORATORYCLIA [id number] [place] [address] [place] [facility] Creatinine and Glomerular filtration rate.predicted panel (S/P/Bld) 82 mL/min/1.73m??? Normal >=60 [facility] Comment on above: Order Comment: Speci men Type: BLOOD SPECIMENOrdering Facility: [facility] Address: [address] [place] [address] Result Comment: Farhana mated Glomerular Filtration Rate [...] actual GFR. Performed By: #### 2 4321-2 ####PORTER LABORATORYCLIA [id number] [place] [id number] [place] Glucose [Mass/Vol] 111 mg/dL High 74-99 [facility] Comment on above: Order Comment: Mason simpson Type: BLOOD SPECIMENOrdering Facility: [facility] Address: [address] [place] [address] Result Comment: The [place] [employer] (ADA) provides guidance for cutoff [...] Standards of Medical Care in Diabetes 2016, [employer]. Diabetes Care. 2016.39(Suppl 1). Performed By: #### 2 4321-2 ####PORTER LABORATORYCLIA [id number] [place] [address] [place] Potassium [Moles/Vol] 4.7 mmol/L Normal 3.7-5.1 [facility] Comment on above: Order Comment: Speci tatiana Type: BLOOD SPECIMENOrdering Facility: [facility] Address: [address] [place] [address] Performed By: #### 2 4321-2 ####PORTER LABORATORYCLIA [id number] [place] [id number] [place] Sodium [Moles/Vol] 141 mmol/L Normal 136-144 [facility] Comment on above: Order Comment: Moyi tatiana Type: BLOOD SPECIMENOrdering Facility: [facility] Address: [address] [place] [address] Performed By: #### 2 4321-2 ####PORTER LABORATORYCLIA [id number] [place] [id number] [place] Urea nitrogen [Mass/Vol] 19 mg/dL Normal 7-21 [facility] Comment on above: Order Comment: Speci men Type: BLOOD SPECIMENOrdering Facility: [facility] Address: [address] [place] [address] Performed By: #### 2 4321-2 ####PORTER LABORATORYCLIA [id number] [place] [id number] [place] Basophils Auto (Bld) [#/Vol] on 08-28-2023 Basophils (Bld) [#/Vol] 10*3/uL <0.11 [facility] Basophils/100 WBC Auto (Bld) on 08-28-2023 Basophils/100 WBC (Bld) 0.1 % [facility] Blood manual differential co mment interpretation narrativeon 08-28-2023 Manual differential comment Ankush (Bld) [Interp] Auto [facility] CASE MANAGEMon 08-28-2023 CASE MANAGEM Normal [facility] CBC W Auto Differential pane l (Bld)on 08-28-2023 Basophils (Bld) [#/Vol] 10*3/uL Normal <0.11 [facility] Comment on above: Order Comment: Speci men Type: BLOOD SPECIMENOrdering Facility: [facility] Address: [address] [place] [address] Performed By: #### 5 7021-8 ####[facility] LABORATORYCLIA [id number] [place] [address] [place] Basophils/100 WBC (Bld) 0.1 % Normal [facility] Comment on above: Order Comment: Speci men Type: BLOOD SPECIMENOrdering Facility: [facility] Address: [address] [place] [address] Performed By: #### 5 7021-8 ####PORTER LABORATORYCLIA [id number] [place] [address] [place] Differential cell count method Nom (Bld) Auto Normal [facility] Comment on above: Order Comment: Speci men Type: BLOOD SPECIMENOrdering Facility: [facility] Address: [address] [place] [address] Performed By: #### 5 7021-8 ####PORTER LABORATORYCLIA [id number] [place] [address] [place] Eosinophils (Bld) [#/Vol] 0.37 10*3/uL Normal <0.46 [facility] Comment on above: Order Comment: Speci men Type: BLOOD SPECIMENOrdering Facility: [facility] Address: [address] [place] [address] Performed By: #### 5 7021-8 ####[facility] LABORATORYCLIA [id number] [place] [address] [place] Eosinophils/100 WBC (Bld) 5.5 % Normal [facility] Comment on above: Order Comment: Speci men Type: BLOOD SPECIMENOrdering Facility: [facility] Address: [address] [place] [address] Performed By: #### 5 7021-8 ####CORNELIUS LABORATORYCLIA [id number] [place] [address] [place] Erythrocyte distribution width (RBC) [Ratio] 15.1 % High 11.5-15.0 [facility] Comment on above: Order Comment: Speci men Type: BLOOD SPECIMENOrdering Facility: [facility] Address: [address] [place] [address] Performed By: #### 5 7021-8 ####CORNELIUS LABORATORYCLIA [id number] [place] [address] [place] Hematocrit (Bld) [Volume fraction] 34.5 % Low 36.0-46.0 [facility] Comment on above: Order Comment: Speci men Type: BLOOD SPECIMENOrdering Facility: [facility] Address: [address] [place] [address] Performed By: #### 5 7021-8 ####CORNELIUS LABORATORYCLIA [id number] [place] [address] [place] Hemoglobin (Bld) [Mass/Vol] 11.0 g/dL Low 11.5-15.5 [facility] Comment on above: Order Comment: Speci men Type: BLOOD SPECIMENOrdering Facility: [facility] Address: [address] [place] [address] Performed By: #### 5 7021-8 ####CORNELIUS LABORATORYCLIA [id number] [place] [id number] [place] Immature granulocytes (Bld) [#/Vol] 0.03 10*3/uL Normal <0.10 [facility] Comment on above: Order Comment: Speci men Type: BLOOD SPECIMENOrdering Facility: [facility] Address: [address] [place] [address] Performed By: #### 5 7021-8 ####CORNELIUS LABORATORYCLIA [id number] [place] [address] [place] Immature granulocytes/100 WBC (Bld) 0.4 % Normal [facility] Comment on above: Order Comment: Speci men Type: BLOOD SPECIMENOrdering Facility: [facility] Address: [address] [place] [address] Performed By: #### 5 7021-8 ####[facility] LABORATORYCLIA [id number] [place] [address] [place] Lymphocytes (Bld) [#/Vol] 0.61 10*3/uL Low 1.00-4.00 [facility] Comment on above: Order Comment: Speci men Type: BLOOD SPECIMENOrdering Facility: [facility] Address: [address] [place] [address] Performed By: #### 5 7021-8 ####[facility] LABORATORYCLIA [id number] [place] [address] [place] Lymphocytes/100 WBC (Bld) 9.0 % Normal [facility] Comment on above: Order Comment: Speci men Type: BLOOD SPECIMENOrdering Facility: [facility] Address: [address] [place] [address] Performed By: #### 5 7021-8 ####[facility] LABORATORYCLIA [id number] [place] [address] [place] MCH (RBC) [Entitic mass] 29.3 pg Normal 26.0-34.0 [facility] Comment on above: Order Comment: Speci men Type: BLOOD SPECIMENOrdering Facility: [facility] Address: [address] [place] [address] Performed By: #### 5 7021-8 ####[facility] LABORATORYCLIA [id number] [place] [id number] [place] MCHC (RBC) [Mass/Vol] 31.9 g/dL Normal 30.5-36.0 [facility] Comment on above: Order Comment: Speci men Type: BLOOD SPECIMENOrdering Facility: [facility] Address: [address] [place] [address] Performed By: #### 5 7021-8 ####CORNELIUS LABORATORYCLIA [id number] [place] [id number] [place] MCV (RBC) [Entitic vol] 91.8 fL Normal 80.0-100.0 [facility] Comment on above: Order Comment: Speci men Type: BLOOD SPECIMENOrdering Facility: [facility] Address: [address] [place] [address] Performed By: #### 5 7021-8 ####CORNELIUS LABORATORYCLIA [id number] [place] [id number] [place] Monocytes (Bld) [#/Vol] 0.44 10*3/uL Normal <0.87 [facility] Comment on above: Order Comment: Speci men Type: BLOOD SPECIMENOrdering Facility: [facility] Address: [address] [place] [address] Performed By: #### 5 7021-8 ####CORNELIUS LABORATORYCLIA [id number] [place] [id number] [place] Monocytes/100 WBC (Bld) 6.5 % Normal [facility] Comment on above: Order Comment: Speci men Type: BLOOD SPECIMENOrdering Facility: [facility] Address: [address] [place] [address] Performed By: #### 5 7021-8 ####CORNELIUS LABORATORYCLIA [id number] [place] [id number] [place] Neutrophils (Bld) [#/Vol] 5.30 10*3/uL Normal 1.45-7.50 [facility] Comment on above: Order Comment: Speci men Type: BLOOD SPECIMENOrdering Facility: [facility] Address: [address] [place] [address] Performed By: #### 5 7021-8 ####[facility] LABORATORYCLIA [id number] [place] [id number] [place] Neutrophils/100 WBC (Bld) 78.5 % Normal [facility] Comment on above: Order Comment: Speci men Type: BLOOD SPECIMENOrdering Facility: [facility] Address: [address] [place] [address] Performed By: #### 5 7021-8 ####PORTER LABORATORYCLIA [id number] [place] [address] [place] Nucleated RBC (Bld) [#/Vol] 10*3/uL Normal <0.01 [facility] Comment on above: Order Comment: Speci men Type: BLOOD SPECIMENOrdering Facility: [facility] Address: [address] [place] [address] Performed By: #### 5 7021-8 ####PORTER LABORATORYCLIA [id number] [place] [address] [place] Nucleated RBC/100 WBC (Bld) [Ratio] 0.0 /100 WBC Normal [facility] Comment on above: Order Comment: Speci men Type: BLOOD SPECIMENOrdering Facility: [facility] Address: [address] [place] [address] Performed By: #### 5 7021-8 ####PORTER LABORATORYCLIA [id number] [place] [address] [place] Platelet mean volume (Bld) [Entitic vol] 8.9 fL Low 9.0-12.7 [facility] Comment on above: Order Comment: Speci men Type: BLOOD SPECIMENOrdering Facility: [facility] Address: [address] [place] [address] Performed By: #### 5 7021-8 ####PORTER LABORATORYCLIA [id number] [place] [address] [place] Platelets (Bld) [#/Vol] 236 10*3/uL Normal 150-400 [facility] Comment on above: Order Comment: Speci men Type: BLOOD SPECIMENOrdering Facility: [facility] Address: [address] [place] [address] Performed By: #### 5 7021-8 ####PORTER LABORATORYCLIA [id number] [place] [id number] [place] RBC (Bld) [#/Vol] 3.76 10*6/uL Low 3.90-5.20 [facility] Comment on above: Order Comment: Speci men Type: BLOOD SPECIMENOrdering Facility: [facility] Address: [address] [place] [id number] Performed By: #### 5 7021-8 ####PORTER LABORATORYCLIA [id number] [place] [id number] [place] WBC (Bld) [#/Vol] 6.76 10*3/uL Normal 3.70-11.00 [facility] Comment on above: Order Comment: Speci men Type: BLOOD SPECIMENOrdering Facility: [facility] Address: [address] [place] [id number] Performed By: #### 5 7021-8 ####PORTER LABORATORYCLIA [id number] [place] [id number] [place] CONSULTon 08-28-2023 CONSULT Normal [facility] Eosinophils/100 WBC Auto (Bl d)on 08-28-2023 Eosinophils/100 WBC (Bld) 5.5 % [facility] Erythrocyte distribution wid th Auto (RBC) [Ratio]on 08-28-2023 Erythrocyte distribution width (RBC) [Ratio] 15.1 % 11.5-15.0 [facility] Hematocrit Auto (Bld) [Volum e fraction]on 08-28-2023 Hematocrit (Bld) [Volume fraction] 34.5 % 36.0-46.0 [facility] Hemoglobin [Mass/volume] in Bloodon 08-28-2023 Hemoglobin (Bld) [Mass/Vol] 11.0 g/dL 11.5-15.5 [facility] Laboratory - Chemistry and C hemistry - challengeon 08-28-2023 Calcium [Mass/Vol] 9.3 mg/dL 8.5-10.2 [facility] Chloride [Moles/Vol] 107 mmol/L 97-105 [facility] CO2 [Moles/Vol] 23 mmol/L 22-30 [facility] Creatinine [Mass/Vol] 0.78 mg/dL 0.58-0.96 [facility] Glucose [Mass/Vol] 111 mg/dL 74-99 [facility] Comment on above: The [place] Di[employer] Association (ADA) provides guidance for [...] Standards of Medical Care in Diabetes 2016, [employer]. Diabetes Care. 2016.39(Suppl 1). Potassium [Moles/Vol] 4.7 mmol/L 3.7-5.1 [facility] Sodium [Moles/Vol] 141 mmol/L 136-144 [facility] Urea nitrogen [Mass/Vol] 19 mg/dL 7- [facility] Laboratory - Hematology and Cell countson 08-28-2023 Eosinophils (Bld) [#/Vol] 0.37 10*3/uL <0.46 [facility] Immature granulocytes (Bld) [#/Vol] 0.03 10*3/uL <0.10 [facility] Immature granulocytes/100 WBC (Bld) 0.4 % [facility] Leukocytes [#/volume] correc french for nucleated erythrocytes in Blood by Automated counon 08-28-2023 WBC corrected for nucl RBC Auto (Bld) [#/Vol] 6.76 k/uL 3.70-11.00 [facility] Lymphocytes Auto (Bld) [#/Vo l]on 08-28-2023 Lymphocytes (Bld) [#/Vol] 0.61 10*3/uL 1.00-4.00 [facility] Lymphocytes/100 WBC Auto (Bl d)on 08-28-2023 Lymphocytes/100 WBC (Bld) 9.0 % [facility] MCH Auto (RBC) [Entitic mass ]on 08-28-2023 MCH (RBC) [Entitic mass] 29.3 pg 26.0-34.0 [facility] MCHC Auto (RBC) [Mass/Vol]on 08-28-2023 MCHC (RBC) [Mass/Vol] 31.9 g/dL 30.5-36.0 [facility] MCV Auto (RBC) [Entitic vol] on 08-28-2023 MCV (RBC) [Entitic vol] 91.8 fL 80.0-100.0 [facility] Monocytes Auto (Bld) [#/Vol] on 08-28-2023 Monocytes (Bld) [#/Vol] 0.44 10*3/uL <0.87 [facility] Monocytes/100 WBC Auto (Bld) on 08-28-2023 Monocytes/100 WBC (Bld) 6.5 % [facility] NURSING PROGon 08-28-2023 NURSING PROG Normal [facility] NURSING PROG Normal [facility] Neutrophils Auto (Bld) [#/Vo l]on 08-28-2023 Neutrophils (Bld) [#/Vol] 5.30 10*3/uL 1.45-7.50 [facility] Neutrophils/100 WBC Auto (Bl d)on 08-28-2023 Neutrophils/100 WBC (Bld) 78.5 % [facility] No Panel Informationon 08-28 Estimated GFR (CKD-EPI) 82 mL/min/1.73m??? >=60 [facility] Comment on above: Estimated Glomerular Filtration Rate [...] 08-28-2023 Nucleated RBC (Bld) [#/Vol] 10*3/uL <0.01 [facility] Nucleated erythrocytes [Pres ence] in Blood by Automated counton 08-28-2023 Nucleated RBC Auto Ql (Bld) 0.0 /100{WBC} [facility] PT EDon 08-28-2023 PT ED Normal [facility] Platelet mean volume Auto (B ld) [Entitic vol]on 08-28-2023 Platelet mean volume (Bld) [Entitic vol] 8.9 fL 9.0-12.7 [facility] Platelets Auto (Bld) [#/Vol] on 08-28-2023 Platelets (Bld) [#/Vol] 236 10*3/uL 150-400 [facility] RBC Auto (Bld) [#/Vol]on RBC (Bld) [#/Vol] 3.76 10*6/uL 3.90-5.20 [facility] Serum or plasma anion gap de terminationon 08-28-2023 Anion gap [Moles/Vol] 11 mmol/L - [facility] THERAPY NTon 08-28-2023 THERAPY NT Normal [facility] Basic metabolic 2000 panelon 08-27-2023 Anion gap [Moles/Vol] 9 mmol/L Normal 03-27 [facility] Comment on above: Order Comment: Speci men Type: BLOOD SPECIMENOrdering Facility: [facility] Address: [address] [place] [address] Performed By: #### 2 4321-2 ####PORTER LABORATORYCLIA [id number] [place] [address] [place] Calcium [Mass/Vol] 9.0 mg/dL Normal 8.5-10.2 [facility] Comment on above: Order Comment: Speci men Type: BLOOD SPECIMENOrdering Facility: [facility] Address: [address] [place] [address] Performed By: #### 2 4321-2 ####PORTER LABORATORYCLIA [id number] [place] [address] [place] Chloride [Moles/Vol] 103 mmol/L Normal 97-105 [facility] Comment on above: Order Comment: Speci men Type: BLOOD SPECIMENOrdering Facility: [facility] Address: [address] [place] [address] Performed By: #### 2 4321-2 ####PORTER LABORATORYCLIA [id number] [place] [id number] [place] CO2 [Moles/Vol] 27 mmol/L Normal 22-30 [facility] Comment on above: Order Comment: Speci men Type: BLOOD SPECIMENOrdering Facility: [facility] Address: [address] [place] [address] Performed By: #### 2 4321-2 ####PORTER LABORATORYCLIA [id number] [place] [id number] [place] Creatinine [Mass/Vol] 0.69 mg/dL Normal 0.58-0.96 [facility] Comment on above: Order Comment: Speci tatiana Type: BLOOD SPECIMENOrdering Facility: [facility] Address: [address] [place] [address] Performed By: #### 2 4321-2 ####PORTER LABORATORYCLIA [id number] [place] [id number] [place] Creatinine and Glomerular filtration rate.predicted panel (S/P/Bld) 93 mL/min/1.73m??? Normal >=60 [facility] Comment on above: Order Comment: Mason simpson Type: BLOOD SPECIMENOrdering Facility: [facility] Address: [address] [place] [address] Result Comment: Farhana mated Glomerular Filtration Rate [...] actual GFR. Performed By: #### 2 4321-2 ####[facility] LABORATORYCLIA [id number] [place] [id number] [place] Glucose [Mass/Vol] 103 mg/dL High 74-99 [facility] Comment on above: Order Comment: Mason simpson Type: BLOOD SPECIMENOrdering Facility: [facility] Address: [address] [place] [address] Result Comment: The [place] Diabetes Association (ADA) provides guidance for cutoff [...] Standards of Medical Care in Diabetes 2016, [employer]. Diabetes Care. 2016.39(Suppl 1). Performed By: #### 2 4321-2 ####[facility] LABORATORYCLIA [id number] [place] [id number] [place] Potassium [Moles/Vol] 4.2 mmol/L Normal 3.7-5.1 [facility] Comment on above: Order Comment: Mason simpson Type: BLOOD SPECIMENOrdering Facility: [facility] Address: [address] [place] [address] Performed By: #### 2 4321-2 ####PORTER LABORATORYCLIA [id number] [place] [id number] [place] Sodium [Moles/Vol] 139 mmol/L Normal 136-144 [facility] Comment on above: Order Comment: Mason simpson Type: BLOOD SPECIMENOrdering Facility: [facility] Address: [address] [place] [address] Performed By: #### 2 4321-2 ####PORTER LABORATORYCLIA [id number] [place] [id number] [place] Urea nitrogen [Mass/Vol] 12 mg/dL Normal 7-21 [facility] Comment on above: Order Comment: Mason simpson Type: BLOOD SPECIMENOrdering Facility: [facility] Address: [address] [place] [address] Performed By: #### 2 4321-2 ####PORTER LABORATORYCLIA [id number] [place] [id number] [place] Basophils Auto (Bld) [#/Vol] on 08-27-2023 Basophils (Bld) [#/Vol] 10*3/uL <0.11 [facility] Basophils/100 WBC Auto (Bld) on 08-27-2023 Basophils/100 WBC (Bld) 0.1 % [facility] Blood manual differential co mment interpretation narrativeon 08-27-2023 Manual differential comment Ankush (Bld) [Interp] Auto [facility] CBC W Auto Differential pane l (Bld)on 08-27-2023 Basophils (Bld) [#/Vol] 10*3/uL Normal <0.11 [facility] Comment on above: Order Comment: Speci men Type: BLOOD SPECIMENOrdering Facility: [facility] Address: [address] [place] [address] Performed By: #### 5 7021-8 ####[facility] LABORATORYCLIA [id number] [place] [address] [place] Basophils/100 WBC (Bld) 0.1 % Normal [facility] Comment on above: Order Comment: Speci men Type: BLOOD SPECIMENOrdering Facility: [facility] Address: [address] [place] [address] Performed By: #### 5 7021-8 ####[facility] LABORATORYCLIA [id number] [place] [address] [place] Differential cell count method Nom (Bld) Auto Normal [facility] Comment on above: Order Comment: Speci men Type: BLOOD SPECIMENOrdering Facility: [facility] Address: [address] [place] [address] Performed By: #### 5 7021-8 ####[facility] LABORATORYCLIA [id number] [place] [address] [place] Eosinophils (Bld) [#/Vol] 0.33 10*3/uL Normal <0.46 [facility] Comment on above: Order Comment: Speci men Type: BLOOD SPECIMENOrdering Facility: [facility] Address: [address] [place] [address] Performed By: #### 5 7021-8 ####[facility] LABORATORYCLIA [id number] [place] [address] [place] Eosinophils/100 WBC (Bld) 4.1 % Normal [facility] Comment on above: Order Comment: Speci men Type: BLOOD SPECIMENOrdering Facility: [facility] Address: [address] [place] [address] Performed By: #### 5 7021-8 ####[facility] LABORATORYCLIA [id number] [place] [id number] [place] Erythrocyte distribution width (RBC) [Ratio] 15.1 % High 11.5-15.0 [facility] Comment on above: Order Comment: Speci men Type: BLOOD SPECIMENOrdering Facility: [facility] Address: [address] [place] [address] Performed By: #### 5 7021-8 ####[facility] LABORATORYCLIA [id number] [place] [address] [place] Hematocrit (Bld) [Volume fraction] 36.2 % Normal 36.0-46.0 [facility] Comment on above: Order Comment: Speci men Type: BLOOD SPECIMENOrdering Facility: [facility] Address: [address] [place] [address] Performed By: #### 5 7021-8 ####[facility] LABORATORYCLIA [id number] [place] [address] [place] Hemoglobin (Bld) [Mass/Vol] 12.0 g/dL Normal 11.5-15.5 [facility] Comment on above: Order Comment: Speci men Type: BLOOD SPECIMENOrdering Facility: [facility] Address: [address] [place] [address] Performed By: #### 5 7021-8 ####[facility] LABORATORYCLIA [id number] [place] [id number] [place] Immature granulocytes (Bld) [#/Vol] 0.04 10*3/uL Normal <0.10 [facility] Comment on above: Order Comment: Speci men Type: BLOOD SPECIMENOrdering Facility: [facility] Address: [address] [place] [address] Performed By: #### 5 7021-8 ####[facility] LABORATORYCLIA [id number] [place] [id number] [place] Immature granulocytes/100 WBC (Bld) 0.5 % Normal [facility] Comment on above: Order Comment: Speci men Type: BLOOD SPECIMENOrdering Facility: [facility] Address: [address] [place] [address] Performed By: #### 5 7021-8 ####[facility] LABORATORYCLIA [id number] [address] [place] Lymphocytes (Bld) [#/Vol] 1.04 10*3/uL Normal 1.00-4.00 [facility] Comment on above: Order Comment: Speci men Type: BLOOD SPECIMENOrdering Facility: [facility] Address: [address] [place] [address] Performed By: #### 5 7021-8 ####[facility] LABORATORYCLIA [id number] [address] Lymphocytes/100 WBC (Bld) 13.0 % Normal [facility] Comment on above: Order Comment: Speci men Type: BLOOD SPECIMENOrdering Facility: [facility] Address: [address] [place] [address] Performed By: #### 5 7021-8 ####CORNEL[facility]US LABORATORYCLIA [id number] [place] [address] [place] MCH (RBC) [Entitic mass] 29.9 pg Normal 26.0-34.0 [facility] Comment on above: Order Comment: Speci men Type: BLOOD SPECIMENOrdering Facility: [facility] Address: [address] [place] [address] Performed By: #### 5 7021-8 ####CORNELIUS LABORATORYCLIA [id number] [place] [id number] [place] MCHC (RBC) [Mass/Vol] 33.1 g/dL Normal 30.5-36.0 [facility] Comment on above: Order Comment: Speci men Type: BLOOD SPECIMENOrdering Facility: [facility] Address: [address] [place] [address] Performed By: #### 5 7021-8 ####[facility] LABORATORYCLIA [id number] [address] [place] MCV (RBC) [Entitic vol] 90.0 fL Normal 80.0-100.0 [facility] Comment on above: Order Comment: Speci men Type: BLOOD SPECIMENOrdering Facility: [facility] Address: [address] [place] [address] Performed By: #### 5 7021-8 ####C[facility] LABORATORYCLIA [id number] [place] [id number] [place] Monocytes (Bld) [#/Vol] 0.59 10*3/uL Normal <0.87 [facility] Comment on above: Order Comment: Speci men Type: BLOOD SPECIMENOrdering Facility: [facility] Address: [address] [place] [address] Performed By: #### 5 7021-8 ####CORNELIUS LABORATORYCLIA [id number] [address] [place] Monocytes/100 WBC (Bld) 7.4 % Normal [facility] Comment on above: Order Comment: Speci men Type: BLOOD SPECIMENOrdering Facility: [facility] Address: [address] [place] [address] Performed By: #### 5 7021-8 ####CORNELIUS LABORATORYCLIA [id number] [place] [address] [place] Neutrophils (Bld) [#/Vol] 6.00 10*3/uL Normal 1.45-7.50 [facility] Comment on above: Order Comment: Speci men Type: BLOOD SPECIMENOrdering Facility: [facility] Address: [address] [place] [address] Performed By: #### 5 7021-8 ####CORNELIUS LABORATORYCLIA [id number] [place] [id number] [place] Neutrophils/100 WBC (Bld) 74.9 % Normal [facility] Comment on above: Order Comment: Speci men Type: BLOOD SPECIMENOrdering Facility: [facility] Address: [address] [place] [address] Performed By: #### 5 7021-8 ####CORNELIUS LABORATORYCLIA [id number] [place] [id number] [place] Nucleated RBC (Bld) [#/Vol] 10*3/uL Normal <0.01 [facility] Comment on above: Order Comment: Speci men Type: BLOOD SPECIMENOrdering Facility: [facility] Address: [address] [place] [address] Performed By: #### 5 7021-8 ####[facility] LABORATORYCLIA [id number] [place] [address] [place] Nucleated RBC/100 WBC (Bld) [Ratio] 0.0 /100 WBC Normal [facility] Comment on above: Order Comment: Speci men Type: BLOOD SPECIMENOrdering Facility: [facility] Address: [address] [place] [address] Performed By: #### 5 7021-8 ####[facility] LABORATORYCLIA [id number] [place] [address] [place] Platelet mean volume (Bld) [Entitic vol] 8.7 fL Low 9.0-12.7 [facility] Comment on above: Order Comment: Speci men Type: BLOOD SPECIMENOrdering Facility: [facility] Address: [address] [place] [address] Performed By: #### 5 7021-8 ####[facility] LABORATORYCLIA [id number] [place] [address] [place] Platelets (Bld) [#/Vol] 265 10*3/uL Normal 150-400 [facility] Comment on above: Order Comment: Speci men Type: BLOOD SPECIMENOrdering Facility: [facility] Address: [address] [place] [address] Performed By: #### 5 7021-8 ####[facility] LABORATORYCLIA [id number] [place] [address] [place] RBC (Bld) [#/Vol] 4.02 10*6/uL Normal 3.90-5.20 [facility] Comment on above: Order Comment: Speci men Type: BLOOD SPECIMENOrdering Facility: [facility] Address: [address] [place] [address] Performed By: #### 5 7021-8 ####CORNELIUS LABORATORYCLIA [id number] [place] [id number] [place] WBC (Bld) [#/Vol] 8.01 10*3/uL Normal 3.70-11.00 [facility] Comment on above: Order Comment: Speci men Type: BLOOD SPECIMENOrdering Facility: [facility] Address: [facility] [place] [address] Performed By: #### 5 7021-8 ####PORTER LABORATORYCLIA [id number] [place] [id number] [place] Eosinophils/100 WBC Auto (Bl d)on 08-27-2023 Eosinophils/100 WBC (Bld) 4.1 % [facility] Erythrocyte distribution wid th Auto (RBC) [Ratio]on 08-27-2023 Erythrocyte distribution width (RBC) [Ratio] 15.1 % 11.5-15.0 [facility] Hematocrit Auto (Bld) [Volum e fraction]on 08-27-2023 Hematocrit (Bld) [Volume fraction] 36.2 % 36.0-46.0 [facility] Hemoglobin [Mass/volume] in Bloodon 08-27-2023 Hemoglobin (Bld) [Mass/Vol] 12.0 g/dL 11.5-15.5 [facility] Laboratory - Chemistry and C hemistry - challengeon 08-27-2023 Calcium [Mass/Vol] 9.0 mg/dL 8.5-10.2 [facility] Chloride [Moles/Vol] 103 mmol/L 97-105 [facility] CO2 [Moles/Vol] 27 mmol/L 22-30 [facility] Creatinine [Mass/Vol] 0.69 mg/dL 0.58-0.96 [facility] Glucose [Mass/Vol] 103 mg/dL 74-99 [facility] Comment on above: The [place] Diabete s Association (ADA) provides guidance for [...] Standards of Medical Care in Diabetes 2016, [employer]. Diabetes Care. 2016.39(Suppl 1). Potassium [Moles/Vol] 4.2 mmol/L 3.7-5.1 [facility] Sodium [Moles/Vol] 139 mmol/L 136-144 [facility] Urea nitrogen [Mass/Vol] 12 mg/dL 7 [facility] Laboratory - Hematology and Cell countson 08-27-2023 Eosinophils (Bld) [#/Vol] 0.33 10*3/uL <0.46 [facility] Immature granulocytes (Bld) [#/Vol] 0.04 10*3/uL <0.10 [facility] Immature granulocytes/100 WBC (Bld) 0.5 % [facility] Leukocytes [#/volume] correc french for nucleated erythrocytes in Blood by Automated counon 08-27-2023 WBC corrected for nucl RBC Auto (Bld) [#/Vol] 8.01 k/uL 3.70-11.00 [facility] Lymphocytes Auto (Bld) [#/Vo l]on 08-27-2023 Lymphocytes (Bld) [#/Vol] 1.04 10*3/uL 1.00-4.00 [facility] Lymphocytes/100 WBC Auto (Bl d)on 08-27-2023 Lymphocytes/100 WBC (Bld) 13.0 % [facility] MCH Auto (RBC) [Entitic mass ]on 08-27-2023 MCH (RBC) [Entitic mass] 29.9 pg 26.0-34.0 [facility] MCHC Auto (RBC) [Mass/Vol]on 08-27-2023 MCHC (RBC) [Mass/Vol] 33.1 g/dL 30.5-36.0 [facility] MCV Auto (RBC) [Entitic vol] on 08-27-2023 MCV (RBC) [Entitic vol] 90.0 fL 80.0-100.0 [facility] Monocytes Auto (Bld) [#/Vol] on 08-27-2023 Monocytes (Bld) [#/Vol] 0.59 10*3/uL <0.87 [facility] Monocytes/100 WBC Auto (Bld) on 08-27-2023 Monocytes/100 WBC (Bld) 7.4 % [facility] NURSING PROGon 08-27-2023 NURSING PROG Normal [facility] Neutrophils Auto (Bld) [#/Vo l]on 08-27-2023 Neutrophils (Bld) [#/Vol] 6.00 10*3/uL 1.45-7.50 [facility] Neutrophils/100 WBC Auto (Bl d)on 08-27-2023 Neutrophils/100 WBC (Bld) 74.9 % [facility] No Panel Informationon 08-27 Estimated GFR (CKD-EPI) 93 mL/min/1.73m??? >=60 [facility] Comment on above: Estimated Glomerular Filtration Rate [...] 08-27-2023 Nucleated RBC (Bld) [#/Vol] 10*3/uL <0.01 [facility] Nucleated erythrocytes [Pres ence] in Blood by Automated counton 08-27-2023 Nucleated RBC Auto Ql (Bld) 0.0 /100{WBC} [facility] Platelet mean volume Auto (B ld) [Entitic vol]on 08-27-2023 Platelet mean volume (Bld) [Entitic vol] 8.7 fL 9.0-12.7 [facility] Platelets Auto (Bld) [#/Vol] on 08-27-2023 Platelets (Bld) [#/Vol] 265 10*3/uL 150-400 [facility] RBC Auto (Bld) [#/Vol]on RBC (Bld) [#/Vol] 4.02 10*6/uL 3.90-5.20 [facility] Serum or plasma anion gap de terminationon 08-27-2023 Anion gap [Moles/Vol] 9 mmol/L - [facility] Basic metabolic 2000 panelon 08-26-2023 Anion gap [Moles/Vol] 10 mmol/L Normal 03-27 [facility] Comment on above: Order Comment: Speci men Type: BLOOD SPECIMENOrdering Facility: [facility] Address: [address] [place] [address] Performed By: #### 2 4321-2 ####PORTER LABORATORYCLIA [id number] [place] [id number] [place] Calcium [Mass/Vol] 8.7 mg/dL Normal 8.5-10.2 [facility] Comment on above: Order Comment: Speci men Type: BLOOD SPECIMENOrdering Facility: [facility] Address: [address] [place] [address] Performed By: #### 2 4321-2 ####PORTER LABORATORYCLIA [id number] [place] [address] [place] Chloride [Moles/Vol] 107 mmol/L High 97-105 [facility] Comment on above: Order Comment: Speci men Type: BLOOD SPECIMENOrdering Facility: [facility] Address: [address] [place] [address] Performed By: #### 2 4321-2 ####PORTER LABORATORYCLIA [id number] [place] [id number] [place] CO2 [Moles/Vol] 25 mmol/L Normal 22-30 [facility] Comment on above: Order Comment: Speci men Type: BLOOD SPECIMENOrdering Facility: [facility] Address: [facility] [place] [place] [address] Performed By: #### 2 4321-2 ####PORTER LABORATORYCLIA [id number] [place] [id number] [place] Creatinine [Mass/Vol] 0.69 mg/dL Normal 0.58-0.96 [facility] Comment on above: Order Comment: Mason simpson Type: BLOOD SPECIMENOrdering Facility: [facility] Address: [address] [place] [address] Performed By: #### 2 4321-2 ####PORTER LABORATORYCLIA [id number] [place] [id number] [place] Creatinine and Glomerular filtration rate.predicted panel (S/P/Bld) 93 mL/min/1.73m??? Normal >=60 [facility] Comment on above: Order Comment: Moy tatiana Type: BLOOD SPECIMENOrdering Facility: [facility] Address: [address] [place] [address] Result Comment: Farhana mated Glomerular Filtration Rate [...] actual GFR. Performed By: #### 2 4321-2 ####PORTER LABORATORYCLIA [id number] [place] [id number] [place] Glucose [Mass/Vol] 84 mg/dL Normal 74-99 [facility] Comment on above: Order Comment: Mason simpson Type: BLOOD SPECIMENOrdering Facility: [facility] Address: [address] [place] [address] Result Comment: The [place] Diabetes Association (ADA) provides guidance for cutoff [...] Standards of Medical Care in Diabetes 2016, [place] [employer]. Diabetes Care. 2016.39(Suppl 1). Performed By: #### 2 4321-2 ####PORTER LABORATORYCLIA [id number] [place] [id number] [place] Potassium [Moles/Vol] 3.5 mmol/L Low 3.7-5.1 [facility] Comment on above: Order Comment: Speci men Type: BLOOD SPECIMENOrdering Facility: [facility] Address: [address] [place] [address] Performed By: #### 2 4321-2 ####PORTER LABORATORYCLIA [id number] [place] [id number] [place] Sodium [Moles/Vol] 142 mmol/L Normal 136-144 [facility] Comment on above: Order Comment: Speci men Type: BLOOD SPECIMENOrdering Facility: [facility] Address: [address] [place] [address] Performed By: #### 2 4321-2 ####PORTER LABORATORYCLIA [id number] [place] [id number] [place] Urea nitrogen [Mass/Vol] 11 mg/dL Normal 7-21 [facility] Comment on above: Order Comment: Speci men Type: BLOOD SPECIMENOrdering Facility: [facility] Address: [address] [place] [address] Performed By: #### 2 4321-2 ####PORTER LABORATORYCLIA [id number] [place] [id number] [place] Basophils Auto (Bld) [#/Vol] on 08-26-2023 Basophils (Bld) [#/Vol] 0.04 10*3/uL <0.11 [facility] Basophils/100 WBC Auto (Bld) on 08-26-2023 Basophils/100 WBC (Bld) 0.5 % [facility] Blood manual differential co mment interpretation narrativeon 08-26-2023 Manual differential comment Ankush (Bld) [Interp] Auto [facility] CASE MGT INIT ASSESon 2023 CASE MGT INIT ASSES Normal [facility] CBC W Auto Differential pane l (Bld)on 08-26-2023 Basophils (Bld) [#/Vol] 0.04 10*3/uL Normal <0.11 [facility] Comment on above: Order Comment: Speci men Type: BLOOD SPECIMENOrdering Facility: [facility] Address: [address] [place] [address] Performed By: #### 5 7021-8 ####CORNELIUS LABORATORYCLIA [id number] [place] [id number] [place] Basophils/100 WBC (Bld) 0.5 % Normal [facility] Comment on above: Order Comment: Speci men Type: BLOOD SPECIMENOrdering Facility: [facility] Address: [address] [place] [address] Performed By: #### 5 7021-8 ####CORNELIUS LABORATORYCLIA [id number] [address] [place] Differential cell count method Nom (Bld) Auto Normal [facility] Comment on above: Order Comment: Speci men Type: BLOOD SPECIMENOrdering Facility: [facility] Address: [address] [place] [address] Performed By: #### 5 7021-8 ####[facility] LABORATORYCLIA [id number] [place] [address] [place] Eosinophils (Bld) [#/Vol] 0.29 10*3/uL Normal <0.46 [facility] Comment on above: Order Comment: Speci men Type: BLOOD SPECIMENOrdering Facility: [facility] Address: [address] [place] [address] Performed By: #### 5 7021-8 ####CORNELIUS LABORATORYCLIA [id number] [address] [place] Eosinophils/100 WBC (Bld) 3.6 % Normal [facility] Comment on above: Order Comment: Speci men Type: BLOOD SPECIMENOrdering Facility: [facility] Address: [address] [place] [address] Performed By: #### 5 7021-8 ####[facility] LABORATORYCLIA [id number] [place] [address] [place] Erythrocyte distribution width (RBC) [Ratio] 15.0 % Normal 11.5-15.0 [facility] Comment on above: Order Comment: Speci men Type: BLOOD SPECIMENOrdering Facility: [facility] Address: [address] [place] [address] Performed By: #### 5 7021-8 ####CORNELIUS LABORATORYCLIA [id number] [place] [address] [place] Hematocrit (Bld) [Volume fraction] 30.9 % Low 36.0-46.0 [facility] Comment on above: Order Comment: Speci men Type: BLOOD SPECIMENOrdering Facility: [facility] Address: [address] [place] [address] Performed By: #### 5 7021-8 ####[facility] LABORATORYCLIA [id number] [place] [address] [place] Hemoglobin (Bld) [Mass/Vol] 10.2 g/dL Low 11.5-15.5 [facility] Comment on above: Order Comment: Speci men Type: BLOOD SPECIMENOrdering Facility: [facility] Address: [address] [place] [address] Performed By: #### 5 7021-8 ####[facility] LABORATORYCLIA [id number] [place] [address] [place] Immature granulocytes (Bld) [#/Vol] 0.10 10*3/uL High <0.10 [facility] Comment on above: Order Comment: Speci men Type: BLOOD SPECIMENOrdering Facility: [facility] Address: [address] [place] [address] Performed By: #### 5 7021-8 ####[facility] LABORATORYCLIA [id number] [place] [address] [place] Immature granulocytes/100 WBC (Bld) 1.2 % Normal [facility] Comment on above: Order Comment: Speci men Type: BLOOD SPECIMENOrdering Facility: [facility] Address: [address] [place] [address] Performed By: #### 5 7021-8 ####CORNELIUS LABORATORYCLIA [id number] [place] [address] [place] Lymphocytes (Bld) [#/Vol] 0.97 10*3/uL Low 1.00-4.00 [facility] Comment on above: Order Comment: Speci men Type: BLOOD SPECIMENOrdering Facility: [facility] Address: [address] [place] [address] Performed By: #### 5 7021-8 ####[facility] LABORATORYCLIA [id number] [place] [address] [place] Lymphocytes/100 WBC (Bld) 12.0 % Normal [facility] Comment on above: Order Comment: Speci men Type: BLOOD SPECIMENOrdering Facility: [facility] Address: [address] [place] [address] Performed By: #### 5 7021-8 ####[facility] LABORATORYCLIA [id number] [place] [address] [place] MCH (RBC) [Entitic mass] 29.6 pg Normal 26.0-34.0 [facility] Comment on above: Order Comment: Speci men Type: BLOOD SPECIMENOrdering Facility: [facility] Address: [address] [place] [address] Performed By: #### 5 7021-8 ####[facility] LABORATORYCLIA [id number] [place] [address] [place] MCHC (RBC) [Mass/Vol] 33.0 g/dL Normal 30.5-36.0 [facility] Comment on above: Order Comment: Speci men Type: BLOOD SPECIMENOrdering Facility: [facility] Address: [address] [place] [address] Performed By: #### 5 7021-8 ####[facility] LABORATORYCLIA [id number] [place] [id number] [place] MCV (RBC) [Entitic vol] 89.6 fL Normal 80.0-100.0 [facility] Comment on above: Order Comment: Speci men Type: BLOOD SPECIMENOrdering Facility: [facility] Address: [address] [place] [address] Performed By: #### 5 7021-8 ####CORNELIUS LABORATORYCLIA [id number] [place] [id number] [place] Monocytes (Bld) [#/Vol] 0.81 10*3/uL Normal <0.87 [facility] Comment on above: Order Comment: Speci men Type: BLOOD SPECIMENOrdering Facility: [facility] Address: [address] [place] [address] Performed By: #### 5 7021-8 ####CORNELIUS LABORATORYCLIA [id number] [place] [id number] [place] Monocytes/100 WBC (Bld) 10.0 % Normal [facility] Comment on above: Order Comment: Speci men Type: BLOOD SPECIMENOrdering Facility: [facility] Address: [address] [place] [address] Performed By: #### 5 7021-8 ####CORNELIUS LABORATORYCLIA [id number] [place] [address] [place] Neutrophils (Bld) [#/Vol] 5.88 10*3/uL Normal 1.45-7.50 [facility] Comment on above: Order Comment: Speci men Type: BLOOD SPECIMENOrdering Facility: [facility] Address: [address] [place] [address] Performed By: #### 5 7021-8 ####CORNELIUS LABORATORYCLIA [id number] [place] [id number] [place] Neutrophils/100 WBC (Bld) 72.7 % Normal [facility] Comment on above: Order Comment: Speci men Type: BLOOD SPECIMENOrdering Facility: [facility] Address: [address] [place] [address] Performed By: #### 5 7021-8 ####CORNELIUS LABORATORYCLIA [id number] [place] [id number] [place] Nucleated RBC (Bld) [#/Vol] 10*3/uL Normal <0.01 [facility] Comment on above: Order Comment: Speci men Type: BLOOD SPECIMENOrdering Facility: [facility] Address: [address] [place], [place] [address] Performed By: #### 5 7021-8 ####PORTER LABORATORYCLIA [id number] [place] [id number] [place] Nucleated RBC/100 WBC (Bld) [Ratio] 0.0 /100 WBC Normal [facility] Comment on above: Order Comment: Speci men Type: BLOOD SPECIMENOrdering Facility: [facility] Address: [address] [place] [address] Performed By: #### 5 7021-8 ####PORTER LABORATORYCLIA [id number] [place] [address] [place] Platelet mean volume (Bld) [Entitic vol] 8.9 fL Low 9.0-12.7 [facility] Comment on above: Order Comment: Speci men Type: BLOOD SPECIMENOrdering Facility: [facility] Address: [address] [place] [address] Performed By: #### 5 7021-8 ####PORTER LABORATORYCLIA [id number] [place] [address] [place] Platelets (Bld) [#/Vol] 230 10*3/uL Normal 150-400 [facility] Comment on above: Order Comment: Speci men Type: BLOOD SPECIMENOrdering Facility: [facility] Address: [address] [place] [address] Performed By: #### 5 7021-8 ####PORTER LABORATORYCLIA [id number] [place] [id number] [place] RBC (Bld) [#/Vol] 3.45 10*6/uL Low 3.90-5.20 [facility] Comment on above: Order Comment: Speci men Type: BLOOD SPECIMENOrdering Facility: [facility] Address: [address] [place] [address] Performed By: #### 5 7021-8 ####PORTER LABORATORYCLIA [id number] [place] [id number] [place] WBC (Bld) [#/Vol] 8.09 10*3/uL Normal 3.70-11.00 [facility] Comment on above: Order Comment: Speci men Type: BLOOD SPECIMENOrdering Facility: [facility] Address: [address] [place] [address] Performed By: #### 5 7021-8 ####PORTER LABORATORYCLIA [id number] [place] [address] [place] CONSULTon 08-26-2023 CONSULT Normal [facility] Eosinophils/100 WBC Auto (Bl d)on 08-26-2023 Eosinophils/100 WBC (Bld) 3.6 % [facility] Erythrocyte distribution wid th Auto (RBC) [Ratio]on 08-26-2023 Erythrocyte distribution width (RBC) [Ratio] 15.0 % 11.5-15.0 [facility] Hematocrit Auto (Bld) [Volum e fraction]on 08-26-2023 Hematocrit (Bld) [Volume fraction] 30.9 % 36.0-46.0 [facility] Hemoglobin [Mass/volume] in Bloodon 08-26-2023 Hemoglobin (Bld) [Mass/Vol] 10.2 g/dL 11.5-15.5 [facility] Laboratory - Chemistry and C hemistry - challengeon 08-26-2023 Calcium [Mass/Vol] 8.7 mg/dL 8.5-10.2 [facility] Chloride [Moles/Vol] 107 mmol/L 97-105 [facility] CO2 [Moles/Vol] 25 mmol/L 22-30 [facility] Creatinine [Mass/Vol] 0.69 mg/dL 0.58-0.96 [facility] Glucose [Mass/Vol] 84 mg/dL 74-99 [facility] Comment on above: The [place] Diabete s Association (ADA) provides guidance for [...] Standards of Medical Care in Diabetes 2016, [place] [employer]. Diabetes Care. 2016.39(Suppl 1). Potassium [Moles/Vol] 3.5 mmol/L 3.7-5.1 [facility] Sodium [Moles/Vol] 142 mmol/L 136-144 [facility] Urea nitrogen [Mass/Vol] 11 mg/dL 7-21 [facility] Laboratory - Hematology and Cell countson 08-26-2023 Eosinophils (Bld) [#/Vol] 0.29 10*3/uL <0.46 [facility] Immature granulocytes (Bld) [#/Vol] 0.10 10*3/uL <0.10 [facility] Immature granulocytes/100 WBC (Bld) 1.2 % [facility] Leukocytes [#/volume] correc french for nucleated erythrocytes in Blood by Automated counon 08-26-2023 WBC corrected for nucl RBC Auto (Bld) [#/Vol] 8.09 k/uL 3.70-11.00 [facility] Lymphocytes Auto (Bld) [#/Vo l]on 08-26-2023 Lymphocytes (Bld) [#/Vol] 0.97 10*3/uL 1.00-4.00 [facility] Lymphocytes/100 WBC Auto (Bl d)on 08-26-2023 Lymphocytes/100 WBC (Bld) 12.0 % [facility] MCH Auto (RBC) [Entitic mass ]on 08-26-2023 MCH (RBC) [Entitic mass] 29.6 pg 26.0-34.0 [facility] MCHC Auto (RBC) [Mass/Vol]on 08-26-2023 MCHC (RBC) [Mass/Vol] 33.0 g/dL 30.5-36.0 [facility] MCV Auto (RBC) [Entitic vol] on 08-26-2023 MCV (RBC) [Entitic vol] 89.6 fL 80.0-100.0 [facility] Monocytes Auto (Bld) [#/Vol] on 08-26-2023 Monocytes (Bld) [#/Vol] 0.81 10*3/uL <0.87 [facility] Monocytes/100 WBC Auto (Bld) on 08-26-2023 Monocytes/100 WBC (Bld) 10.0 % [facility] Neutrophils Auto (Bld) [#/Vo l]on 08-26-2023 Neutrophils (Bld) [#/Vol] 5.88 10*3/uL 1.45-7.50 [facility] Neutrophils/100 WBC Auto (Bl d)on 08-26-2023 Neutrophils/100 WBC (Bld) 72.7 % [facility] No Panel Informationon 08-26 Estimated GFR (CKD-EPI) 93 mL/min/1.73m??? >=60 [facility] Comment on above: Estimated Glomerular Filtration Rate [...] 08-26-2023 Nucleated RBC (Bld) [#/Vol] 10*3/uL <0.01 [facility] Nucleated erythrocytes [Pres ence] in Blood by Automated counton 08-26-2023 Nucleated RBC Auto Ql (Bld) 0.0 /100{WBC} [facility] Platelet mean volume Auto (B ld) [Entitic vol]on 08-26-2023 Platelet mean volume (Bld) [Entitic vol] 8.9 fL 9.0-12.7 [facility] Platelets Auto (Bld) [#/Vol] on 08-26-2023 Platelets (Bld) [#/Vol] 230 10*3/uL 150-400 [facility] RBC Auto (Bld) [#/Vol]on RBC (Bld) [#/Vol] 3.45 10*6/uL 3.90-5.20 [facility] Serum or plasma anion gap de terminationon 08-26-2023 Anion gap [Moles/Vol] 10 mmol/L 9-18 [facility] THERAPY NTon 08-26-2023 THERAPY NT Normal [facility] THERAPY NT Normal [facility] ANES POSTPROC EVALon 024 ANES POSTPROC EVAL Normal [facility] ANES PRE-OPon 08-25-2023 ANES PRE-OP [facility] BRIEF OP NOTon 08-25-2023 BRIEF OP NOT [facility] NURSING PROGon 08-25-2023 NURSING PROG [facility] NURSING PROG [facility] OPERATIVE NOon 08-25-2023 OPERATIVE NO [facility] SURGICAL PATHOLOGYon 024 AMENDED REPORT DETAIL Normal [facility] Comment on above: Order Comment: Speci men Type: TISSUE SPECIMENOrdering Facility: [facility] Address: [address] [place] [address] Result Comment: Amen ded: 09/13/2023 3:21 PMThis [...] EST. Performed By: #### S ####[facility] LABORATORYCLIA [id number] [address] LABCLIA [id number] [address] BLOCK FOR ADDITIONAL BIOMARKERS/MOLECULAR STUDIES No evidence of residual invasive adenocarcinoma Normal [facility] Comment on above: Order Comment: Speci men Type: TISSUE SPECIMENOrdering Facility: [facility] Address: [address] [place] [address] Performed By: #### S ####[facility] LABORATORYCLIA [id number] [address] LABCLIA [id number] [address] [place] CASE REPORT Normal [facility] Comment on above: Order Comment: Speci men Type: TISSUE SPECIMENOrdering Facility: [facility] Address: [address] [place] [address] Result Comment: Surg ical Pathology Report Case: [id number] Provider: Laisha Singer MD Collected: 08/25/2023 11:42 AMOrdering Location: [facility] Received: 08/25/2023 12:13 PM Operating RoomPathologist: Oscar Marshall MDSpecimens: A) - COLON RESECTION, low anterior resection B) - MARGIN GI, distal margin Performed By: #### S ####[facility] LABORATORYCLIA [id number] [address] LABCLIA [id number] [address] OF [place] CLINICAL HISTORY Normal [facility] Comment on above: Order Comment: Speci men Type: TISSUE SPECIMENOrdering Facility: [facility] Address: [address] [place] [address] Result Comment: Pre- op diagnosis:Rectal cancer (HCC) [C20] Performed By: #### S ####[facility] LABORATORYCLIA [id number] [address] LABCLIA [id number] [address] FINAL DIAGNOSIS Normal [facility] Comment on above: Order Comment: Speci men Type: TISSUE SPECIMENOrdering Facility: [facility] Address: [address] [place] [address] Result Comment: A. S igmoid colon and rectum, resection:- No evidence of residual invasive adenocarcinoma (see synoptic report).- Fifteen lymph nodes, negative for malignancy (0/15).B. Additional distal margin, excision:- Segment of rectum with no diagnostic abnormality.JEL 4Amendment electronically signed by Oscar Marshall MD on 09/13/2023 at 3:24 PM Performed By: #### S ####PORTER LABORATORYCLIA [id number] [place] [id number] [facility] LABCLIA [id number] [address] FINAL PERFORMING LAB Normal [facility] Comment on above: Order Comment: Speci men Type: TISSUE SPECIMENOrdering Facility: [facility] Address: [address] [place] [address] Result Comment: Diag nostic interpretation performed at [facility], [address] [place] [address] CLIA# [id number] Director: Jax Suarez M.D. Performed By: #### S ####POR[facility] LABORATORYCLIA [id number] [place] [id number] [facility] LABCLIA [id number] [address] GROSS DESCRIPTION Normal [facility] Comment on above: Order Comment: Speci men Type: TISSUE SPECIMENOrdering Facility: [facility] Address: [address] [place] [address] Result Comment: A. C OLON RESECTIONReceived in [...] with a wall thickness of 0.9 cm. Computer Repair Technician sections are submitted as follows: A1 ulcer [...] 28, 2023 1:59 PMGross examination performed at [facility], [address] [place] [address] 18887Z. MARGIN GIReceived in formalin designated distal margin is a segment of bowel that measures 0.5 cm in length and 1.2 cm in diameter. The specimen cannot be inked due to the size of the specimen. The specimen is serially sectioned and entirely submitted in one cassette.WE August 25, 2023 1:52 PMGross examination performed at [facility], [address] [place] [id number] results: Previously reported on 08/31/2023 at 6:21 PM EST. Performed By: #### S ####PORTER LABORATORYCLIA [id number] [place] [id number] [place] [facility] LABCLIA [id number] [address] OF [facility] SYNOPTIC REPORT Normal [facility] Comment on above: Order Comment: Speci men Type: TISSUE SPECIMENOrdering Facility: [facility] Address: [address] [place] [address] Result Comment: COLO N AND RECTUM: Resection, Including Transanal Disk Excision of Rectal NeoplasmsCOLON AND RECTUM: RESECTION - All Lntpnyaap1wv Edition - Protocol posted: 12/29/2021PECIMEN Procedure: Low [...] pN Category: pN0 Performed By: #### S ####PORTER LABORATORYCLIA [id number] [place] [address] [place] [facility] LABCLIA [id number] [address] [place] CBC W Auto Differential pane l (Bld)on 08-11-2023 Basophils (Bld) [#/Vol] 0.05 10*3/uL Normal <0.11 [facility] Comment on above: Order Comment: Speci men Type: BLOOD SPECIMEN [facility] Address: [address] [place] [address] Performed By: #### 5 7021-8 #### [facility] LAB CLIA [id number] [address] [place] [address] [place] Basophils/100 WBC (Bld) 1.0 % Normal [facility] Comment on above: Order Comment: Speci men Type: BLOOD SPECIMEN [facility] Address: [address] [place] [address] Performed By: #### 5 7021-8 #### [facility] LAB CLIA [id number] [address] [place] [address] [place] Differential cell count method Nom (Bld) Auto Normal [facility] Comment on above: Order Comment: Speci men Type: BLOOD SPECIMEN [facility] Address: [address] [place] [address] Performed By: #### 5 7021-8 #### [facility] LAB CLIA [id number] [address] [place] [address] [place] Eosinophils (Bld) [#/Vol] 0.34 10*3/uL Normal <0.46 [facility] Comment on above: Order Comment: Speci men Type: BLOOD SPECIMEN [facility] Address: [address] [place] [address] Performed By: #### 5 7021-8 #### [facility] LAB CLIA [id number] [address] [place] [address] [place] Eosinophils/100 WBC (Bld) 6.8 % Normal [facility] Comment on above: Order Comment: Speci men Type: BLOOD SPECIMEN [facility] Address: [address] [place] [address] Performed By: #### 5 7021-8 #### [facility] CLIA [id number] [address] [place] [address] [place] Erythrocyte distribution width (RBC) [Ratio] 15.2 % High 11.5-15.0 [facility] Comment on above: Order Comment: Speci men Type: BLOOD SPECIMEN [facility] Address: [address] [place] [address] Performed By: #### 5 7021-8 #### [facility] CLIA [id number] [address] [place] [address] [place] Hematocrit (Bld) [Volume fraction] 39.9 % Normal 36.0-46.0 [facility] Comment on above: Order Comment: Speci men Type: BLOOD SPECIMEN [facility] Address: [address] [place] [address] Performed By: #### 5 7021-8 #### [facility] CLIA [id number] [address] [place] [address] [place] Hemoglobin (Bld) [Mass/Vol] 12.5 g/dL Normal 11.5-15.5 [facility] Comment on above: Order Comment: Speci men Type: BLOOD SPECIMEN [facility] Address: [address] [place] [address] Performed By: #### 5 7021-8 #### [facility] CLIA [id number] [address] [place] [address] [place] Immature granulocytes (Bld) [#/Vol] 10*3/uL Normal <0.10 [facility] Comment on above: Order Comment: Speci men Type: BLOOD SPECIMEN [facility] Address: [address] [place] [address] Performed By: #### 5 7021-8 #### [facility] CLIA [id number] [address] [place] [address] [place] Immature granulocytes/100 WBC (Bld) 0.2 % Normal [facility] Comment on above: Order Comment: Speci men Type: BLOOD SPECIMEN [facility] Address: [address] [place] [address] Performed By: #### 5 7021-8 #### [facility] CLIA [id number] [address] [place] [address] [place] Lymphocytes (Bld) [#/Vol] 1.44 10*3/uL Normal 1.00-4.00 [facility] Comment on above: Order Comment: Speci men Type: BLOOD SPECIMEN [facility] Address: [address] [place] [address] Performed By: #### 5 7021-8 #### [facility] CLIA [id number] [address] [place] [address] [place] Lymphocytes/100 WBC (Bld) 28.7 % Normal [facility] Comment on above: Order Comment: Speci men Type: BLOOD SPECIMEN [facility] Address: [address] [place] [address] Performed By: #### 5 7021-8 #### [facility] CLIA [id number] [address] [place] [address] [place] MCH (RBC) [Entitic mass] 29.6 pg Normal 26.0-34.0 [facility] Comment on above: Order Comment: Speci men Type: BLOOD SPECIMEN [facility] Address: [address] [place] [address] Performed By: #### 5 7021-8 #### [facility] CLIA [id number] [address] [place] [address] [place] MCHC (RBC) [Mass/Vol] 31.3 g/dL Normal 30.5-36.0 [facility] Comment on above: Order Comment: Speci men Type: BLOOD SPECIMEN [facility] Address: [address] [place] [address] Performed By: #### 5 7021-8 #### [facility] CLIA [id number] [address] [place] [address] [place] MCV (RBC) [Entitic vol] 94.3 fL Normal 80.0-100.0 [facility] Comment on above: Order Comment: Speci men Type: BLOOD SPECIMEN [facility] Address: [address] [place] [address] Performed By: #### 5 7021-8 #### [facility] CLIA [id number] [address] [place] [address] [place] Monocytes (Bld) [#/Vol] 0.47 10*3/uL Normal <0.87 [facility] Comment on above: Order Comment: Speci men Type: BLOOD SPECIMEN [facility] Address: [address] [place] [address] Performed By: #### 5 7021-8 #### [facility] CLIA [id number] [address] [place] [address] [place] Monocytes/100 WBC (Bld) 9.4 % Normal [facility] Comment on above: Order Comment: Speci men Type: BLOOD SPECIMEN [facility] Address: [address] [place] [address] Performed By: #### 5 7021-8 #### [facility] CLIA [id number] [address] [place] [address] [place] Neutrophils (Bld) [#/Vol] 2.71 10*3/uL Normal 1.45-7.50 [facility] Comment on above: Order Comment: Speci men Type: BLOOD SPECIMEN [facility] Address: [address] [place] [address] Performed By: #### 5 7021-8 #### [facility] CLIA [id number] [address] [place] [address] [place] Neutrophils/100 WBC (Bld) 53.9 % Normal [facility] Comment on above: Order Comment: Speci men Type: BLOOD SPECIMEN [facility] Address: [address] [place] [address] Performed By: #### 5 7021-8 #### [facility] CLIA [id number] [address] [place] [address] [place] Nucleated RBC (Bld) [#/Vol] 10*3/uL Normal <0.01 [facility] Comment on above: Order Comment: Speci men Type: BLOOD SPECIMEN [facility] Address: [address] [place] [address] Performed By: #### 5 7021-8 #### [facility] CLIA [id number] [address] [place] [address] [place] Nucleated RBC/100 WBC (Bld) [Ratio] 0.0 /100 WBC Normal [facility] Comment on above: Order Comment: Speci men Type: BLOOD SPECIMEN [facility] Address: [address] [place] [address] Performed By: #### 5 7021-8 #### [facility] CLIA [id number] [address] [place] [address] [place] Platelet mean volume (Bld) [Entitic vol] 9.2 fL Normal 9.0-12.7 [facility] Comment on above: Order Comment: Speci men Type: BLOOD SPECIMEN [facility] Address: [address] [place] [address] Performed By: #### 5 7021-8 #### [facility] CLIA [id number] [address] [place] [address] [place] Platelets (Bld) [#/Vol] 264 10*3/uL Normal 150-400 [facility] Comment on above: Order Comment: Speci men Type: BLOOD SPECIMEN [facility] Address: [address] [place] [address] Performed By: #### 5 7021-8 #### [facility] CLIA [id number] [address] [place] [address] [place] RBC (Bld) [#/Vol] 4.23 10*6/uL Normal 3.90-5.20 [facility] Comment on above: Order Comment: Speci men Type: BLOOD SPECIMEN [facility] Address: [address] [place] [address] Performed By: #### 5 7021-8 #### [facility] CLIA [id number] [address] [place] [address] [place] WBC (Bld) [#/Vol] 5.02 10*3/uL Normal 3.70-11.00 [facility] Comment on above: Order Comment: Speci men Type: BLOOD SPECIMEN [facility] Address: [address] [place] [address] Performed By: #### 5 7021-8 #### [facility] CLIA [id number] [address] [place] [address] [place] CONFIRM BLOOD TYPEon 024 ABO O Normal [facility] Comment on above: Order Comment: Speci men Type: BLOOD SPECIMEN [facility] Address: [address] [place] [address] Performed By: #### 5 7021-8 #### [facility] CLIA [id number] [address] [place] [address] Rh Nom (Bld) Negative Normal [facility] Comment on above: Order Comment: Speci men Type: BLOOD SPECIMEN [facility] Address: [address] [place] [address] Performed By: #### 5 7021-8 #### [facility] CLIA [id number] [address] [place] [address] Comprehensive metabolic 2000 panelon 08-11-2023 Albumin [Mass/Vol] 4.3 g/dL Normal 3.9-4.9 [facility] Comment on above: Order Comment: Speci men Type: BLOOD SPECIMEN [facility] Address: [address] [place] [address] Performed By: #### 2 4323-8 #### [facility] CLIA [id number] [address] [place] [address] ALP [Catalytic activity/Vol] 81 U/L Normal 34-123 [facility] Comment on above: Order Comment: Speci men Type: BLOOD SPECIMEN [facility] Address: [address] [place] [address] Performed By: #### 2 4323-8 #### [facility] CLIA [id number] [address] [place] [address] ALT [Catalytic activity/Vol] 17 U/L Normal 7-38 [facility] Comment on above: Order Comment: Speci men Type: BLOOD SPECIMEN [facility] Address: [address] [place] [address] Performed By: #### 2 4323-8 #### [facility] CLIA [id number] [address] [place] [address] Anion gap [Moles/Vol] 12 mmol/L Normal 9-18 [facility] Comment on above: Order Comment: Speci men Type: BLOOD SPECIMEN [facility] Address: [address] [place] [address] Performed By: #### 2 4323-8 #### [facility] CLIA [id number] [address] [place] [address] AST [Catalytic activity/Vol] 23 U/L Normal 13-35 [facility] Comment on above: Order Comment: Speci men Type: BLOOD SPECIMEN [facility] Address: [address] [place] [address] Performed By: #### 2 4323-8 #### [facility] CLIA [id number] [address] [place] [address] Bilirubin [Mass/Vol] 0.2 mg/dL Normal 0.2-1.3 [facility] Comment on above: Order Comment: Speci men Type: BLOOD SPECIMEN [facility] Address: [address] [place] [address] Performed By: #### 2 4323-8 #### [facility] CLIA [id number] [address] [place] [address] Calcium [Mass/Vol] 9.7 mg/dL Normal 8.5-10.2 [facility] Comment on above: Order Comment: Speci men Type: BLOOD SPECIMEN [facility] Address: [address] [place] [id number] Performed By: #### 2 4323-8 #### [facility] CLIA [id number] [address] [place] [address] Chloride [Moles/Vol] 106 mmol/L High 97-105 [facility] Comment on above: Order Comment: Speci men Type: BLOOD SPECIMEN [facility] Address: [address] [place] [address] Performed By: #### 2 4323-8 #### [facility] CLIA [id number] [address] [place] [address]54 CO2 [Moles/Vol] 25 mmol/L Normal 22-30 [facility] Comment on above: Order Comment: Speci men Type: BLOOD SPECIMEN [facility] Address: [address] [place], [place] [address] Performed By: #### 2 4323-8 #### [facility] CLIA [id number] [address] [place] [address] Creatinine [Mass/Vol] 0.72 mg/dL Normal 0.58-0.96 [facility] Comment on above: Order Comment: Speci men Type: BLOOD SPECIMEN [facility] Address: [address] [place] [id number] Performed By: #### 2 4323-8 #### [facility] CLIA [id number] [address] [place] [address] Creatinine and Glomerular filtration rate.predicted panel (S/P/Bld) 91 mL/min/1.73m??? Normal >=60 [facility] Comment on above: Order Comment: Mason simpson Type: BLOOD SPECIMEN [facility] Address: [address] [place] [id number] Result Comment: Farhana mated Glomerular Filtration Rate [...] actual GFR. Performed By: #### 2 4323-8 #### [facility] CLIA [id number] [address] [place] [address] Glucose [Mass/Vol] 88 mg/dL Normal 74-99 [facility] Comment on above: Order Comment: Mason simpson Type: BLOOD SPECIMEN [facility] Address: [address] [place], [place] [id number] Result Comment: The [place] [employer] (ADA) provides guidance for cutoff values for fasting glucose and random glucose. The ADA defines fasting as no caloric intake for at least 8 hours. Fasting plasma glucose results between 100 to 125 mg/dL indicate increased risk for diabetes (prediabetes). Fasting plasma glucose results greater than or equal to 126 mg/dL meet the criteria for diagnosis of diabetes. In the absence of unequivocal hyperglycemia, results should be confirmed by repeat testing. In a patient with classic symptoms of hyperglycemia or hyperglycemic crisis, random plasma glucose results greater than or equal to 200 mg/dL meet the criteria for diagnosis of diabetes. Reference: Standards of Medical Care in Diabetes 2016, [place] [employer] Association. Diabetes Care. 2016.39(Suppl 1). Performed By: #### 2 4323-8 #### [facility] CLIA [id number] [address] [place] [address] Potassium [Moles/Vol] 5.0 mmol/L Normal 3.7-5.1 [facility] Comment on above: Order Comment: Mason simpson Type: BLOOD SPECIMEN [facility] Address: [address] [place] [phone] Performed By: #### 2 4323-8 #### [facility] CLIA [id number] [address] [place] [address] Protein [Mass/Vol] 6.5 g/dL Normal 6.3-8.0 [facility] Comment on above: Order Comment: Speci men Type: BLOOD SPECIMEN [facility] Address: [address] [place] [address] Performed By: #### 2 4323-8 #### [facility] CLIA [id number] [address] [place] [address] Sodium [Moles/Vol] 143 mmol/L Normal 136-144 [facility] Comment on above: Order Comment: Speci men Type: BLOOD SPECIMEN [facility] Address: [address] [place] [address] Performed By: #### 2 4323-8 #### [facility] CLIA [id number] [address] [place] [address] Urea nitrogen [Mass/Vol] 15 mg/dL Normal 7-21 [facility] Comment on above: Order Comment: Speci men Type: BLOOD SPECIMEN [facility] Address: [address] [place] [address] Performed By: #### 2 4323-8 #### [facility] CLIA [id number] [address] [place] [address] 12981 HISTORY PHYSICALon HISTORY PHYSICAL HNO ID: [id number] Author: LYNNETTE LYNN APRN.CONSUMER [employer] RET[employer] SPECIALIST Service: ? Author Type: Nurse Practitioner Type: H&P Filed: 08/14/2023 11:46 Note Text: HISTORY AND PHYSICAL EXAMINATION SERVICE DATE: 08/11/2023 SERVICE TIME: 12:15 PM PRIMARY CARE PHYSICIAN: Charles Bazzi DO REASON FOR VISIT: Evan Gill is a 67 year old female who [...] and 11pm the evening prior to surgery. Taking Yes Amoxicillin 500 [...] with Vitamin E, B12 + Active Folate Taking Yes MEDICATION, NON-DATABASE Take 1 Each by mouth once daily. [employer] supplies guzman mitochondrial micronutrients and a smart combination of alpha lipoic acid, N-acetyl cysteine, and acetyl L-carnitine Taking Yes ondansetron [...] as needed for up to 30 days. nitroglycerin sublingual [...] medication comments found. ALLERGIES No Known Allergies Co (more content not included)... Normal [facility] TYPE AND SCREEN,30 DAYon ABO O Normal [facility] Comment on above: Order Comment: Speci men Type: BLOOD SPECIMENOrdering Facility: [facility] Address: [address] [place] [address] Performed By: #### T SCR30 ####[facility] BANKCLIA [id number] [address] [place] HISTORICAL AB SCR STATUS Negative Normal [facility] Comment on above: Order Comment: Speci men Type: BLOOD SPECIMENOrdering Facility: [facility] Address: [address] [place] [address] Performed By: #### T SCR30 ####CC MAIN BLOOD BANKCLIA [id number] [place] Rh Nom (Bld) Negative Normal [facility] Comment on above: Order Comment: Speci men Type: BLOOD SPECIMENOrdering Facility: [facility] Address: [address] [place] [address] Performed By: #### T SCR30 ####CC MAIN BLOOD BANKCLIA [id number] [address] [place] CNOVon 08-07-2023 CNOV Office Visit ([facility] ) ----- EVAN GILL ([id number]) 1955 F Date Time Provider Department 08/07/23 10:20 AM ALE MARIE [facility] During your visit today, we recorded the following information about you: Temperature Pulse Blood pressure Weight 97.1 degrees 79/minute 104/62 64.9 kg Height 1.626 m Ale Marie APRN.CONSUMER ELECTRONIC 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 Singer for upcoming colorectal procedure. Chief Complaint: Preoperative ostomy education and stoma site marking History of Present Illness: Evan Gill is a 67 year old female with history of rectal cancer presents today for preoperative ostomy education and stoma site marking. PAST MEDICAL HISTORY Diagnosis Date Constipation Diverticulosis Malignant melanoma (HCC) Rectal cancer (HCC) PAST SURGICAL HISTORY Procedure Laterality Date COLONOSCOPY PAST SURGICAL HISTORY OF Right knee surgery PAST SURGICAL HISTORY OF skin lesion removed melanoma REMOVAL GALLBLADDER Current Outpatient Medications Medication Sig Dispense Refill metroNIDAZOLE (FLAGYL) 500 mg tablet Take 1 tablet by mouth three times a day. Take 1 tablet at 6pm, 7pm, and 11pm, the evening prior to surgery. 3 tablet 0 neomycin 500 mg tablet Take 2 tablets by mouth as directed. Take 2 tablet at 6pm, 7pm, and 11pm the evening prior to surgery. 6 tablet 0 diphenoxylate-atropine (LOMOTIL) 2.5-0.025 mg per tablet Take 1 tablet by mouth four times a day as needed for up to 30 days. 30 tablet 1 nitroglycerin sublingual (NITROQUICK) 0.4 mg SL tablet [...] with Vitamin E, B12 + Active Folate MEDICATION, NON-DATABASE Take 1 Each by mouth once daily. [employer] supplies guzman mitochondrial micronutrients and a smart combination of alpha lipoic acid, N-acetyl cysteine, and acetyl L-carnitine ondansetron orally disintegrating [...] as needed for nausea/vomiting. 90 tablet 2 polyethylene glycol 3350 (MIRALAX) 17 gram/dose powder [...] couple times per month Drug use: Never Physical Exam: BP 104/62 (BP Site: Left Arm, BP Position: Sitting) Pulse 79 Temp 36.2 ?C (97.1 ?F) Ht 162.6 cm (5' 4 ) Wt 64.9 kg (143 lb) SpO2 99% BMI 24.55 kg/m? General Appearance: Well appearing, alert, in no acute distress, well-hydrated, well nourished. Skin: Skin color, texture, turgor normal Head: Normocephalic Neck: Supple Lungs: breathing unlabored on room air Extremities: No deformities, no weakness Neuro: Gait normal Abdomen: Scar noted to right upper quadrant from previous open cholecystectomy. Loose skin to abdomen from 45 pound weight loss over the past year. Ostomy s (more content not included)... Normal [facility] Huang 08-07-2023 [facility] Telephone ([facility]) ----- EVAN GILL ([id number]) 1955 F Date Time Provider Department 08/07/23 Del HUDSON During your visit today, we recorded the following information about you: Prachi Gill, KAYA 08/07/2023 8:13 AM Signed Pt has been scheduled for surgery with Dr Singer on 08/25. She is scheduled for follow up with you on 08/23 and wondering if she should keep this appt or if it would be better to see you sometime postop? Please advise. KAYA Drake Angela, KAYA 08/07/2023 9:12 AM Signed PSS- please cancel f/u with Dr Hudson on 08/23. We will reschedule once she is post surgery and coordinate follow up with Dr Corona at that time if possible. Pt is aware. Thank you KAYA Drake Courtney 08/07/2023 9:14 AM Signed Appointment with Dr. Hudson on 08/23 is cancelled. Tiff - FYI. Thanks, Justin Marmolejo Allergies As of Date: 08/07/2023 (No Known Allergies) Date Reviewed: 07/27/2023 Reviewed by: Amanda Varghese, RN - Fully Assessed Reason for Visit: Future Appointment [256] Prescriptions as of 08/07/2023 - metroNIDAZOLE (FLAGYL) 500 mg tablet Take 1 tablet by mouth three times a day. Take 1 tablet at 6pm, 7pm, and 11pm, the evening prior to surgery. - neomycin 500 mg tablet Take 2 tablets by mouth as directed. Take 2 tablet at 6pm, 7pm, and 11pm the evening prior to surgery. - diphenoxylate-atropine (LOMOTIL) 2.5-0.025 mg per tablet Take 1 tablet by mouth four times a day as needed for up to 30 days. - nitroglycerin sublingual (NITROQUICK) 0.4 mg SL tablet Dissolve 1 tablet under the tongue as needed for chest pain, may repeat every 5 minutes if no relief up to 3 times. - Amoxicillin 500 mg tablet FOR DENTAL WORK - omeprazole (PRILOSEC) 40 mg capsule Take [...] Take 1 Each by mouth once daily. [employer] supplies guzman mitochondrial micronutrients and a smart [...] 1 tablet by mouth once daily. - aspirin, enteric coated (ASPIRIN, ENTERIC COATED) 81 mg EC tablet Take 81 mg by mouth once daily. - docosahexaenoic acid/epa (FISH OIL ORAL) Take 2,000 mg by mouth two times a day. - calcium carbonate/vitamin d3(CALCIUM 600 WITH VITAMIN D3 600 MG (1,500 MG)-400 UNIT CAP) Take 1 tablet by mouth once daily. Problem List As Of Date 08/07/2023 Noted Resolved OSTEOARTHROS NOS-ANKLE [M19.079] 12/20/2005 Personal History of Malignant Melanoma of Skin *04/28/2009 Rectal cancer (HCC) [C20] 06/14/2023 Iron deficiency anemia, unspecified [D50.9] 07/06/2023 Encounter Status:Closed by PRACHI GILL on 08/07/23 [facility] Huang 08-03-2023 CNPN Telephone ([facility]) ----- EVAN GILL ([id number]) 1955 F Date Time Provider Department 08/03/23 LAISHA SINGER [facility] During your visit today, we recorded the following information about you: Cierra Lindquist, KAYA 08/03/2023 2:38 PM Signed Called and informed her that she was discussed in tumor board today and the plan is to proceed with surgery. She agrees to the plan. She is declining another appointment with Dr Singer to discuss surgery again. She states she was given all the information before. She is now scheduled for her Robotic LAR on 08/25/23. Discussed pre op instructions over the phone and will be sent in my chart. She has no other questions or concerns at this time. 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 Take 1 tablet at 6pm, 7pm, and 11pm, the evening prior to surgery.Disp: 3 tabletRfl: 0 neomycin 500 mg tabletTake 2 tablets by mouth as directed. Take 2 tablet at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 SPECIMEN Ordering Facility: [facility] Address: [address] [place] [address] Performed By: #### 5 7021-8 #### [facility] CLIA [id number] [address] [place] [address] ALP [Catalytic activity/Vol] 59 U/L Normal 34-123 [facility] Comment on above: Order Comment: Speci men Type: BLOOD SPECIMEN Ordering Facility: [facility] Address: [address] [place] [address] Performed By: #### 5 7021-8 #### [facility] CLIA [id number] [address] [place] [address] 86706 ALT [Catalytic activity/Vol] 15 U/L Normal 7-38 [facility] Comment on above: Order Comment: Speci men Type: BLOOD SPECIMEN Ordering Facility: [facility] Address: [address] [place] [address] Performed By: #### 5 7021-8 #### [facility] CLIA [id number] [address] [place] [address] 22444 Anion gap [Moles/Vol] 10 mmol/L Normal 9-18 [facility] Comment on above: Order Comment: Speci men Type: BLOOD SPECIMEN Ordering Facility: [facility] Address: [address] [place] [address] Performed By: #### 5 7021-8 #### [facility] CLIA [id number] [address] [place] [address] AST [Catalytic activity/Vol] 15 U/L Normal 13-35 [facility] Comment on above: Order Comment: Speci men Type: BLOOD SPECIMEN Ordering Facility: [facility] Address: [address] [place] [address] Performed By: #### 5 7021-8 #### [facility] CLIA [id number] [address] [place] [address] 90934 Bilirubin [Mass/Vol] 0.3 mg/dL Normal 0.2-1.3 [facility] Comment on above: Order Comment: Speci men Type: BLOOD SPECIMEN Ordering Facility: [facility] Address: [address] [place] [address] Performed By: #### 5 7021-8 #### [facility] CLIA [id number] [address] [place] [address] 84311 Calcium [Mass/Vol] 8.4 mg/dL Low 8.5-10.2 [facility] Comment on above: Order Comment: Speci men Type: BLOOD SPECIMEN Ordering Facility: [facility] Address: [address] [place] [address] Performed By: #### 5 7021-8 #### [facility] CLIA [id number] [address] [place] [address] 95656 Chloride [Moles/Vol] 110 mmol/L High 97-105 [facility] Comment on above: Order Comment: Speci men Type: BLOOD SPECIMEN Ordering Facility: [facility] Address: [address] [place] [address] Performed By: #### 5 7021-8 #### [facility] CLIA [id number] [address] [place] [address] 19891 CO2 [Moles/Vol] 23 mmol/L Normal 22-30 [facility] Comment on above: Order Comment: Speci men Type: BLOOD SPECIMEN Ordering Facility: [facility] Address: [address] [place] [address] Performed By: #### 5 7021-8 #### [facility] CLIA [id number] [address] [place] [address] 64892 Creatinine [Mass/Vol] 0.63 mg/dL Normal 0.58-0.96 [facility] Comment on above: Order Comment: Speci men Type: BLOOD SPECIMEN Ordering Facility: [facility] Address: [address] [place] [address] Performed By: #### 5 7021-8 #### [facility] CLIA [id number] [address] [place] [address] 44390 Creatinine and Glomerular filtration rate.predicted panel (S/P/Bld) 96 mL/min/1.73m??? Normal >=60 [facility] Comment on above: Order Comment: Specduarte simpson Type: BLOOD SPECIMEN Ordering Facility: [facility] Address: [address] [place] [address] Result Comment: Farhana mated Glomerular Filtration Rate [...] accurately reflect actual GFR. Performed By: #### 5 7021-8 #### [facility] CLIA [id number] [address] [place] [address] 85210 Glucose [Mass/Vol] 96 mg/dL Normal 74-99 [facility] Comment on above: Order Comment: Speci tatiana Type: BLOOD SPECIMEN Ordering Facility: [facility] Address: [address] [place] [address] Result Comment: The [place] [employer] (ADA) provides guidance for cutoff values for fasting glucose and random glucose. The ADA defines fasting as no caloric intake for at least 8 hours. Fasting plasma glucose results between 100 to 125 mg/dL indicate increased risk for diabetes (prediabetes). Fasting plasma glucose results greater than or equal to 126 mg/dL meet the criteria for diagnosis of diabetes. In the absence of unequivocal hyperglycemia, results should be confirmed by repeat testing. In a patient with classic symptoms of hyperglycemia or hyperglycemic crisis, random plasma glucose results greater than or equal to 200 mg/dL meet the criteria for diagnosis of diabetes. Reference: Standards of Medical Care in Diabetes 2016, [place] [employer] Association. Diabetes Care. 2016.39(Suppl 1). Performed By: #### 5 7021-8 #### [facility] CLIA [id number] [address] [place] [address] 91682 Potassium [Moles/Vol] 3.5 mmol/L Low 3.7-5.1 [facility] Comment on above: Order Comment: Speci men Type: BLOOD SPECIMEN Ordering Facility: [facility] Address: [address] [place] [address] Performed By: #### 5 7021-8 #### [facility] CLIA [id number] [address] [place] [address] 76156 Protein [Mass/Vol] 5.4 g/dL Low 6.3-8.0 [facility] Comment on above: Order Comment: Speci men Type: BLOOD SPECIMEN Ordering Facility: [facility] Address: [address] [place] [address] Performed By: #### 5 7021-8 #### [facility] CLIA [id number] [address] [place] [address] 30721 Sodium [Moles/Vol] 143 mmol/L Normal 136-144 [facility] Comment on above: Order Comment: Speci men Type: BLOOD SPECIMEN Ordering Facility: [facility] Address: [address] [place] [address] Performed By: #### 5 7021-8 #### [facility] CLIA [id number] [address] [place] [address] 12992 Urea nitrogen [Mass/Vol] 16 mg/dL Normal 7-21 [facility] Comment on above: Order Comment: Speci men Type: BLOOD SPECIMEN Ordering Facility: [facility] Address: [address] [place] [id number] Performed By: #### 5 7021-8 #### [facility] CLIA [id number] [address] [place] [address] 43903 Gastrointestinal pathogens i dentified ELLIOTT+probe Nom (Stl)on 07-13-2023 Campylobacter sp DNA ELLIOTT+probe Nom (Unsp spec) Not detected Normal Not Detected [facility] Comment on above: Order Comment: Speci men Type: BLOOD SPECIMEN Ordering Facility: [facility] Address: [address] [place] [address] Performed By: #### 2 4323-8 #### [facility] CLIA [id number] [address] [place] [address] Salmonella sp DNA ELLIOTT+probe Ql (Unsp spec) Not detected Normal Not Detected [facility] Comment on above: Order Comment: Speci men Type: BLOOD SPECIMEN Ordering Facility: [facility] Address: [address] [place] [address] Performed By: #### 2 4323-8 #### [facility] CLIA [id number] [address] [place] [address] Shiga toxin stx gene ELLIOTT+probe Nom (Unsp spec) Not detected Normal Not Detected [facility] Comment on above: Order Comment: Speci men Type: BLOOD SPECIMEN Ordering Facility: [facility] Address: [address] [place] [address] Performed By: #### 2 4323-8 #### [facility] CLIA [id number] [address] [place] [address] Shigella sp DNA ELLIOTT+probe Ql (Unsp spec) Not detected Normal Not Detected [facility] Comment on above: Order Comment: Speci men Type: BLOOD SPECIMEN Ordering Facility: [facility] Address: [address] [place] [address] Performed By: #### 2 4323-8 #### [facility] CLIA [id number] [address] [place] [address] Huang 07-12-2023 MERARYN Telephone (RADTSA) ----- EVAN GILL ([id number]) 1955 F Date Time Provider Department 07/12/23 TAPAN CORONA During your visit today, we recorded the following information about you: Prachi Gill, RN 07/12/2023 8:02 AM Signed Pt complains of frequent diarrhea over the last several days. She has been taking 8 imodium per day and had to take another 4 over night without relief. She is no longer on any stool softeners or miralax. Would you be willing to prescribe imodium? She is coming in for IV hydration tomorrow as well. Please review lomotil order and sign if agreeable. Prachi Gill RN Naheed Elias PA-C 07/12/2023 8:12 AM Signed Imodium is over the counter. I will sign for lomotil, however a stool for c.diff and enteric bacteria needs done as well. Naheed Elias PA-C Allergies As of Date: 07/12/2023 (No Known Allergies) Date Reviewed: 07/12/2023 Reviewed by: Naheed Elias PA-C - Fully Assessed Reason for Visit: Diarrhea [35] Primary Visit Diagnosis:Rectal adenocarcinoma (HCC) [C20] Other Visit Diagnosis:Diarrhea of presumed infectious origin [R19.7] Order(s):diphenoxylate-at ropine (LOMOTIL) 2.5-0.025 mg per tabletTake 1 tablet by mouth four times a day as needed for up to 30 days.Disp: 30 tabletRfl: 1 C. DIFFICILE PCR [SQCDPCR] Order #: [id number]. #:[id number] ENTERIC BACTERIAL PANEL BY PCR [SQSTLPCR] Order #: [id number]. #:[id number] Prescriptions as of 07/12/2023 - diphenoxylate-atropine (LOMOTIL) 2.5-0.025 mg per tablet Take 1 tablet by mouth four times a day as needed for up to 30 days. - nitroglycerin sublingual (NITROQUICK) 0.4 mg SL tablet Dissolve 1 tablet under the tongue as needed for chest pain, may repeat every 5 minutes if no relief up to 3 times. - Amoxicillin 500 mg tablet FOR DENTAL WORK - omeprazole (PRILOSEC) 40 mg capsule Take [...] Take 1 Each by mouth once daily. [employer] guzman mitochondrial micronutrients and a smart [...] 1 tablet by mouth once daily. - aspirin, enteric coated (ASPIRIN, ENTERIC COATED) 81 mg EC tablet Take 81 mg by mouth once daily. - docosahexaenoic acid/epa (FISH OIL ORAL) Take 2,000 mg by mouth two times a day. - calcium carbonate/vitamin d3(CALCIUM 600 WITH VITAMIN D3 600 MG (1,500 MG)-400 UNIT CAP) Take 1 tablet by mouth once daily. Problem List As Of Date 07/12/2023 Noted Resolved OSTEOARTHROS NOS-ANKLE [M19.079] 12/20/2005 Personal History of Malignant Melanoma of Skin *04/28/2009 Rectal cancer (HCC) [C20] 06/14/2023 Iron deficiency anemia, unspecified [D50.9] 07/06/2023 Prescriptions ordered this encounter Disp Refills Start End DIPHENOXYLATE-ATROPINE 2.5 MG-0.025 * 30 t* 1 07/12/2023 08/11/2023 Route: ORAL Sig: Take 1 tablet by mouth four times a day as needed for up to 30 days. Encounter Status:Closed by PRACHI GILL [facility]12/23 [facility] CNPN Telephone (HEMASA) ----- EVAN GILL ([id number]) 1955 F Date Time Provider Department 07/11/23 COLLEEN SOLORIO HEMASA During your visit today, we recorded the following information about you: Colleen Solorio RN 07/11/2023 9:45 AM Signed When would you like to see pt in follow up? She was here on Monday and had her pump d/c'd after presenting to ER for heart spasms and chest pain. Pt is feeling much better and her spasms/pain have subsided. Please advise KAYA Sifuentes Kasra, MD 07/11/2023 10:11 AM Signed She needs to see Dr. Singer and I have messaged her, can we make sure that happens and I will see her after her visit with Colleen Rivera, KAYA 07/11/2023 12:13 PM Signed DIL notified of recommendations. PSS: please schedule with Dr Singer per KK's request. She has already seen her in the past. Thanks KAYA Sifuentes Tiffany G, RN 07/11/2023 1:[address] Corona, Pt was scheduled for iron infusion on Monday but wasn't feeling up to it with everything that was going on at the time. When should she get her iron infusions? Please advise KAYA Sifuentes Kasra, MD 07/11/2023 1:42 PM Signed This week Colleen Solorio RN 07/11/2023 1:46 PM Signed Please schedule pt for IV iron this week as well as an appointment with Dr Singer. Thanks KAYA Sifuentes Tiffany G RN 07/11/2023 4:01 PM Signed Message received from Minda stating pt is having diarrhea and would like to have IV fluids as well when she's here for her iron. Please place orders for fluids as well. Thanks KAYA Sifuentes Amy S 07/11/2023 4:07 PM Signed Spoke to Elda at Dr Singer's office at [phone] and scheduled appointment at [facility] with Dr Singer on 07/18/2023@3:40 pm. Cathleen Francisco 07/11/2023 4:07 PM Signed Lvm for patient to call back to give all appointments including Dr Singer's appointment on 07/18/2023. Cathleen Francisco 07/12/2023 1:18 PM Signed 2nd attempt-Lvm for patient to call back to go over all appointments dates AND times including Dr Singer's appointment below. Cathleen Francisco 07/12/2023 1:40 PM Signed Patient called back AND confirmed date AND time of all appointments however did mention is not having chemo tx any longer. I told her we would leave that appointment for chemo tx on there on 07/19/[address] Corona same day. It will probably be taken off. Patient is also aware of Dr Singer's appointment on 07/18/2023. Tapan Calloway MD 07/12/2023 3:17 PM Signed She will not be having chemo correct, I can see her after she has seen Dr. Singer and surgery. Thanks Cathleen Del Valle 07/12/2023 3:37 PM Signed Spoke to patient AND let her know about DONOVAN wanting to see her after Dr Singer's appointment on 07/18/2023 and if she needs surgery. Patient aware cancelling appointments for labs, follow up with DONOVAN, AND chemo tx on 07/19/2023 AND chemo tx on 07/21/2023. I told patient to call back after surgery to reschedule follow up after surgery with Dr Singer. Patient verbalized understanding. Cathleen Bergman Celinoemí Colleen Solorio RN 07/18/2023 9:26 AM Signed The treatment appointments are for her iron, and she does still need to get that. Please schedule. Thanks KAYA Sifuentes Brittany 07/18/2023 9:56 AM Signed I show she is on the schedule for 07/21 for Monoferric -- one time dose. Is this still the plan? If so, will keep appointment as scheduled. Colleen Miller RN 07/18/2023 10:46 AM Signed Perfect! Thanks Colleen Solorio RN Allergies As of Date: 07/11/2023 (No Known Allergies) Date Reviewed: 07/07/2023 Reviewed by: Naheed Elias PA-C - Fully Assessed Reason for Visit: Care Coordination [7158] Cmt: Follow up Prescriptions as of 07/18/2023 - diphenoxylate-atropine (LOMOTIL) 2.5-0.025 mg per tablet Take 1 tablet by mouth four times a day as needed for up to 30 days. - nitroglycerin sublingual (NITROQUICK) 0.4 mg SL tablet Dissolve 1 tablet under the tongue as needed for chest pain, may repeat every 5 minutes if no relief up to 3 times. - Amoxicillin 500 mg tablet FOR DENTAL WORK - omeprazole (PRILOSEC) 40 mg capsule Take [...] Take 1 Each by mouth once daily. [employer] supplies guzman mitochondrial micronutrients and a smart combination of alpha lipoic acid, N-acetyl cysteine, and acetyl L-carnit (more content not included)... Normal [facility] 07-07-2023 CNPN Telephone ([place]) ----- JAIROEVAN ([id number]) 1955 F Date Time Provider Department 07/07/23 COLLEEN SOLORIO HEMSOLITARIO During your visit today, we recorded the following information about you: Colleen Solorio RN 07/07/2023 1:22 PM Signed CYCLE 1/DAY 1 POST TREATMENT CALL Today's date: July 07, 2023 Treatment Regimen: oxaliplatin, leucovorin, 5FU infusional pump C1D1 Date: 07/05/23 Called patient to follow-up on symptom management. Spoke with patient's daughter who states pt is now in the ER with heart spasms. Will follow up with patient later today. Colleen Solorio RN Allergies As of Date: 07/07/2023 (No Known Allergies) Date Reviewed: 07/05/2023 Reviewed by: Tapan Corona MD - Fully Assessed Reason for Visit: Care Coordination [1791] Cmt: C1D1 treatment follow up call Prescriptions as of 07/07/2023 - Amoxicillin 500 mg tablet FOR DENTAL WORK - omeprazole (PRILOSEC) 40 mg capsule Take [...] Take 1 Each by mouth once daily. [employer] supplies guzman mitochondrial micronutrients and a smart [...] 1 tablet by mouth once daily. - aspirin, enteric coated (ASPIRIN, ENTERIC COATED) 81 mg EC tablet Take 81 mg by mouth once daily. - docosahexaenoic acid/epa (FISH OIL ORAL) Take 2,000 mg by mouth two times a day. - calcium carbonate/vitamin d3(CALCIUM 600 WITH VITAMIN D3 600 MG (1,500 MG)-400 UNIT CAP) Take 1 tablet by mouth once daily. Problem List As Of Date 07/07/2023 Noted Resolved OSTEOARTHROS NOS-ANKLE [M19.079] 12/20/2005 Personal History of Malignant Melanoma of Skin *04/28/2009 Rectal cancer (HCC) [C20] 06/14/2023 Iron deficiency anemia, unspecified [D50.9] 07/06/2023 Encounter Status:Closed by COLLEEN SOLORIO [facility]07[facility] EVAN GILL ([id number]) 1955 F Date Time Provider Department 07/07/23 COLLEEN SOLORIOASA During your visit today, we recorded the following information about you: Colleen Solorio RN 07/07/2023 8:49 AM Signed Message received from pt's daughter in law stating pt began having heart spasms and she shut off the 5FU pump. TERESA spoke with Kerri who recommended that pt come to the office to have her pump d/c'd and to be assessed or sent to the ER. Pt does not have any nitro at home to take as a script was never given to her. Spoke with Naheed who states pt needs to go directly to the ER. Notified daughter in law of this and pt will go to [facility]. Call placed to Ruth at [facility]. KAYA Sifuentes Kasra, MD 07/07/2023 9:17 AM Signed Was she having pain and or palpatation? That's 2 different things Colleen Solorio RN 07/07/2023 9:24 AM Signed Pt/daughter in law stated it was heart spasms. They went away when the pt shut the pump off, but then started back up. Just received an update from Minda stating while in the ER her pain got better on it's own. They johnson cardiac enzymes and are going to draw them again at 11 am. ER physician may be calling with an update. KAYA Sifuentes Tiffany G, RN 07/07/2023 12:08 PM Signed Shira: Can you keep an eye out for records please. Thanks KAYA Sifuentes Tiffany G, RN 07/07/2023 12:32 PM Signed Call received from Jada, pt's daughter stating pt is in full blown doubled over chest pain 04/18 that radiates down both of her arms. States this is worse than this morning. Discussed the use of nitro, which patient doesn't have at home. Jada will be taking pt back to the ER. KAYA Sifuentes Kasra, MD 07/07/2023 12:34 PM Signed She will need to get back to the ER and repeat ECG and also CTA to r/o CLARICE GarciaAmber 07/07/2023 12:40 PM Signed ER records scanned. Colleen Solorio RN 07/07/2023 1:23 PM Signed Pt is back at the ER in [place], and they may transfer her to [facility]. Can you keep an eye out for records Shira. Thanks Colleen Solorio RN Shaunalysha [facility] 07/07/2023 3:59 PM Signed Records scanned. Allergies As of Date: 07/07/2023 (No Known Allergies) Date Reviewed: 07/07/2023 Reviewed by: Naheed Elias PA-C - Fully Assessed Reason for Visit: Care Coordination [8479] Cmt: Chest pain Prescriptions as of 07/07/2023 - nitroglycerin sublingual (NITROQUICK) 0.4 mg SL tablet Dissolve 1 tablet under the tongue as needed for chest pain. - Amoxicillin 500 mg tablet FOR DENTAL WORK - omeprazole (PRILOSEC) 40 mg capsule Take [...] Take 1 Each by mouth once daily. [employer] supplies guzman mitochondrial micronutrients and a smart [...] 1 tablet by mouth once daily. - aspirin, enteric coated (ASPIRIN, ENTERIC COATED) 81 mg EC tablet Take 81 mg by mouth once daily. - docosahexaenoic acid/epa (FISH OIL ORAL) Take 2,000 mg by mouth two times a day. - calcium carbonate/vitamin d3(CALCIUM 600 WITH VITAMIN D3 600 MG (1,500 MG)-400 UNIT CAP) Take 1 tablet by mouth once daily. Facility-Administered Medications as of 07/07/2023 - NaCl 0.9% 1,000 mL - sodium chloride 0.9 % (flush) 10-20 mL (BD POSIFLUSH) - heparin 100 unit/mL 500 Units injection - sodium chloride 0.9 % (flush) 10-20 mL (BD POSIFLUSH) Problem List As Of Date 07/07/2023 Noted Resolved OSTEOARTHROS NOS-ANKLE [M19.079] 12/20/2005 Personal History of Malignant Melanoma of Skin *04/28/20 (more content not included)... Normal [facility] Telephone ([place]) ----- EVAN GILL ([id number]) 1955 F Date Time Provider Department 07/07/23 COLLEEN SOLORIO During your visit today, we recorded the following information about you: Colleen Solorio RN 07/07/2023 4:31 PM Signed EMERGENCY ROOM CALL BACK Today's date: July 07, 2023 Patient identified by name and date of . YES Primary Cancer Diagnosis: rectal cancer Reason for Emergency Room Visit: heart spasms, chest pain Time of day presented to Emergency Room morning If Mon-Monday during business hours: Did you contact your User Experience Designer/Provider? Yes, told to present to emergency department Patient with any new symptom issues: No Psychosocial Risk Factors: None FOLLOW UP Patient reminded of her follow-up appointment with [facility] provider, Dr Corona on TBD: pt here for her pump d/c. Dr Corona will be going back to talk with patient to determine follow up Next User Experience Designer outreach with patient scheduled? As needed Discussed with pt and daughter how she is feeling. Pt states she's feeling well now. Chest pain and heart spasms have been coming and going all day. Pt received a script for imdur from the ER today that she will fill and start taking. Also discussed with pt the cold sensitivity side effect of oxaliplatin and this may be a factor on the symptoms she's having as well. Pt verbalized understanding. PATIENT EDUCATION/REINFORCEMENT Patient verbalizes understanding of when to seek Medical Attention? YES Patient verbalizes understanding of after hours and weekend phone number? YES Patient verbalizes understanding of next outreach appointment? YES Colleen Solorio RN Allergies As of Date: 07/07/2023 (No Known Allergies) Date Reviewed: 07/07/2023 Reviewed by: Naheed Elias, PADesireeC - Fully Assessed Reason for Visit: Care Coordination [8578] Cmt: ER follow up call Prescriptions as of 07/07/2023 - nitroglycerin sublingual (NITROQUICK) 0.4 mg SL tablet Dissolve 1 tablet under the tongue as needed for chest pain. - Amoxicillin 500 mg tablet FOR DENTAL WORK - omeprazole (PRILOSEC) 40 mg capsule Take [...] Take 1 Each by mouth once daily. [employer] supplies guzman mitochondrial micronutrients and a smart [...] 1 tablet by mouth once daily. - aspirin, enteric coated (ASPIRIN, ENTERIC COATED) 81 mg EC tablet Take 81 mg by mouth once daily. - docosahexaenoic acid/epa (FISH OIL ORAL) Take 2,000 mg by mouth two times a day. - calcium carbonate/vitamin d3(CALCIUM 600 WITH VITAMIN D3 600 MG (1,500 MG)-400 UNIT CAP) Take 1 tablet by mouth once daily. Facility-Administered Medications as of 07/07/2023 - NaCl 0.9% 1,000 mL - sodium chloride 0.9 % (flush) 10-20 mL (BD POSIFLUSH) - heparin 100 unit/mL 500 Units injection - sodium chloride 0.9 % (flush) 10-20 mL (BD POSIFLUSH) Problem List As Of Date 07/07/2023 Noted Resolved OSTEOARTHROS NOS-ANKLE [M19.079] 12/20/2005 Personal History of Malignant Melanoma of Skin *04/28/2009 Rectal cancer (HCC) [C20] 06/14/2023 Iron deficiency anemia, unspecified [D50.9] 07/06/2023 Encounter Status:Closed by COLLEEN SOLORIO on 07/07/23 [facility] 07-06-2023 [facility] Telephone ([place]) ----- EVAN GILL ([id number]) 1955 F Date Time Provider Department 07/06/23 LINDA MCFADDEN During your visit today, we recorded the following information about you: Linda Mcfadden RN 07/06/2023 10:39 AM Signed ----- Message from Tapan Corona MD sent at 07/06/2023 7:39 AM EST ----- I believe that she will benefit from some IV Iron and can set up if she agrees Linda Mcfadden, KAYA 07/06/2023 10:41 AM Signed Pt notified and agrees to IV iron. Dr Corona/Pharmacy: Could pt possibly receive it tomorrow when here for pump dc? Linda Mcfadden RN ReedRenetta [facility] 07/06/2023 1:08 PM Signed Yes, okay to get monoferric tomorrow at pump dc (per Brody Saucedo) PSS: can you adjust her [place] appt time? Thank you, Tapan Galeana MD 07/06/2023 1:17 PM Signed Krissy Guzman 07/06/2023 1:43 PM Signed Patient's pump is due to come off tomorrow around 11 am -- patient was hooked up at 12:58 pm. This will give plenty of time to allow for Monoferric! Thank you! Krissy Koehler Allergies As of Date: 07/06/2023 (No Known Allergies) Date Reviewed: 07/05/2023 Reviewed by: Tapan Corona MD - Fully Assessed Reason for Visit: Care Coordination [0414] Cmt: Lab Results; IV Iron Visit Diagnosis:Other iron deficiency anemia [D50.8] Prescriptions as of 07/06/2023 - Amoxicillin 500 mg tablet FOR DENTAL WORK - omeprazole (PRILOSEC) 40 mg capsule Take [...] Take 1 Each by mouth once daily. [employer] supplies guzman mitochondrial micronutrients and a smart [...] 1 tablet by mouth once daily. - aspirin, enteric coated (ASPIRIN, ENTERIC COATED) 81 mg EC tablet Take 81 mg by mouth once daily. - docosahexaenoic acid/epa (FISH OIL ORAL) Take 2,000 mg by mouth two times a day. - calcium carbonate/vitamin d3(CALCIUM 600 WITH VITAMIN D3 600 MG (1,500 MG)-400 UNIT CAP) Take 1 tablet by mouth once daily. Problem List As Of Date 07/06/2023 Noted Resolved OSTEOARTHROS NOS-ANKLE [M19.079] 12/20/2005 Personal History of Malignant Melanoma of Skin *04/28/2009 Rectal cancer (HCC) [C20] 06/14/2023 Iron deficiency anemia, unspecified [D50.9] 07/06/2023 Encounter Status:Closed by KRISSY KOEHLER on 07/06/23 Normal [facility] CBC W Auto Differential pane l (Bld)on 07-05-2023 Basophils (Bld) [#/Vol] 10*3/uL Normal <0.11 [facility] Comment on above: Order Comment: Speci men Type: BLOOD SPECIMEN Ordering Facility: [facility] Address: [address] [place] [address] Performed By: #### 5 7021-8 #### [facility] CLIA [id number] [address] [place] [address] 54331 Basophils/100 WBC (Bld) 0.5 % Normal [facility] Comment on above: Order Comment: Speci men Type: BLOOD SPECIMEN Ordering Facility: [facility] Address: [address] [place] [address] Performed By: #### 5 7021-8 #### [facility] CLIA [id number] [address] [place] [address] 90909 Differential cell count method Nom (Bld) Auto Normal [facility] Comment on above: Order Comment: Speci men Type: BLOOD SPECIMEN Ordering Facility: [facility] Address: [address] [place] [address] Performed By: #### 5 7021-8 #### [facility] CLIA [id number] [address] [place] [address] 27009 Eosinophils (Bld) [#/Vol] 0.41 10*3/uL Normal <0.46 [facility] Comment on above: Order Comment: Speci men Type: BLOOD SPECIMEN Ordering Facility: [facility] Address: [address] [place] [address] Performed By: #### 5 7021-8 #### [facility] CLIA [id number] [address] [place] [address] 03005 Eosinophils/100 WBC (Bld) 9.6 % Normal [facility] Comment on above: Order Comment: Speci men Type: BLOOD SPECIMEN Ordering Facility: [facility] Address: [address] [place] [address] Performed By: #### 5 7021-8 #### [facility] CLIA [id number] [address] [place] [address] 37226 Erythrocyte distribution width (RBC) [Ratio] 14.0 % Normal 11.5-15.0 [facility] Comment on above: Order Comment: Speci men Type: BLOOD SPECIMEN Ordering Facility: [facility] Address: [address] [place] [address] Performed By: #### 5 7021-8 #### [facility] CLIA [id number] [address] [place] [address] 40954 Hematocrit (Bld) [Volume fraction] 31.1 % Low 36.0-46.0 [facility] Comment on above: Order Comment: Speci men Type: BLOOD SPECIMEN Ordering Facility: [facility] Address: [address] [place] [address] Performed By: #### 5 7021-8 #### [facility] CLIA [id number] [address] [place] [address] 90344 Hemoglobin (Bld) [Mass/Vol] 9.9 g/dL Low 11.5-15.5 [facility] Comment on above: Order Comment: Speci men Type: BLOOD SPECIMEN Ordering Facility: [facility] Address: [address] [place] [address] Performed By: #### 5 7021-8 #### [facility] CLIA [id number] [address] [place] [address] 26354 Immature granulocytes (Bld) [#/Vol] 10*3/uL Normal <0.10 [facility] Comment on above: Order Comment: Speci men Type: BLOOD SPECIMEN Ordering Facility: [facility] Address: [address] [place] [address] Performed By: #### 5 7021-8 #### [facility] CLIA [id number] [address] [place] [address] Immature granulocytes/100 WBC (Bld) 0.2 % Normal [facility] Comment on above: Order Comment: Speci men Type: BLOOD SPECIMEN Ordering Facility: [facility] Address: [address] [place] [address] Performed By: #### 5 7021-8 #### [facility] CLIA [id number] [address] [place] [address] Lymphocytes (Bld) [#/Vol] 1.16 10*3/uL Normal 1.00-4.00 [facility] Comment on above: Order Comment: Speci men Type: BLOOD SPECIMEN Ordering Facility: [facility] Address: [address] [place] [address] Performed By: #### 5 7021-8 #### [facility] CLIA [id number] [address] [place] [address] 46621 Lymphocytes/100 WBC (Bld) 27.2 % Normal [facility] Comment on above: Order Comment: Speci men Type: BLOOD SPECIMEN Ordering Facility: [facility] Address: [address] [place] [address] Performed By: #### 5 7021-8 #### [facility] CLIA [id number] [address] [place] [address] 09291 MCH (RBC) [Entitic mass] 28.9 pg Normal 26.0-34.0 [facility] Comment on above: Order Comment: Speci men Type: BLOOD SPECIMEN Ordering Facility: [facility] Address: [address] [place] [address] Performed By: #### 5 7021-8 #### [facility] CLIA [id number] [address] [place] [address] 57373 MCHC (RBC) [Mass/Vol] 31.8 g/dL Normal 30.5-36.0 [facility] Comment on above: Order Comment: Speci men Type: BLOOD SPECIMEN Ordering Facility: [facility] Address: [address] [place] [address] Performed By: #### 5 7021-8 #### [facility] CLIA [id number] [address] [place] [address] 87143 MCV (RBC) [Entitic vol] 90.7 fL Normal 80.0-100.0 [facility] Comment on above: Order Comment: Speci men Type: BLOOD SPECIMEN Ordering Facility: [facility] Address: [address] [place] [address] Performed By: #### 5 7021-8 #### [facility] CLIA [id number] [address] [place] [address] 29805 Monocytes (Bld) [#/Vol] 0.39 10*3/uL Normal <0.87 [facility] Comment on above: Order Comment: Speci men Type: BLOOD SPECIMEN Ordering Facility: [facility] Address: [address] [place] [address] Performed By: #### 5 7021-8 #### [facility] CLIA [id number] [address] [place] [address] 53217 Monocytes/100 WBC (Bld) 9.1 % Normal [facility] Comment on above: Order Comment: Speci men Type: BLOOD SPECIMEN Ordering Facility: [facility] Address: [address] [place] [address] Performed By: #### 5 7021-8 #### [facility] CLIA [id number] [address] [place] [address] 54421 Neutrophils (Bld) [#/Vol] 2.28 10*3/uL Normal 1.45-7.50 [facility] Comment on above: Order Comment: Speci men Type: BLOOD SPECIMEN Ordering Facility: [facility] Address: [address] [place] [address] Performed By: #### 5 7021-8 #### [facility] CLIA [id number] [address] [place] [address] 39336 Neutrophils/100 WBC (Bld) 53.4 % Normal [facility] Comment on above: Order Comment: Speci men Type: BLOOD SPECIMEN Ordering Facility: [facility] Address: [address] [place] [address] Performed By: #### 5 7021-8 #### [facility] CLIA [id number] [address] [place] [address] 41517 Nucleated RBC (Bld) [#/Vol] 10*3/uL Normal <0.01 [facility] Comment on above: Order Comment: Speci men Type: BLOOD SPECIMEN Ordering Facility: [facility] Address: [address] [place] [address] Performed By: #### 5 7021-8 #### [facility] CLIA [id number] [address] [place] [address] 12434 Nucleated RBC/100 WBC (Bld) [Ratio] 0.0 /100 WBC Normal [facility] Comment on above: Order Comment: Speci men Type: BLOOD SPECIMEN Ordering Facility: [facility] Address: [address] [place] [address] Performed By: #### 5 7021-8 #### [facility] CLIA [id number] [address] [place] [address] 74531 Platelet mean volume (Bld) [Entitic vol] 8.2 fL Low 9.0-12.7 [facility] Comment on above: Order Comment: Speci men Type: BLOOD SPECIMEN Ordering Facility: [facility] Address: [address] [place] [address] Performed By: #### 5 7021-8 #### [facility] CLIA [id number] [address] [place] [address] 09710 Platelets (Bld) [#/Vol] 222 10*3/uL Normal 150-400 [facility] Comment on above: Order Comment: Speci men Type: BLOOD SPECIMEN Ordering Facility: [facility] Address: [address] [place] [address] Performed By: #### 5 7021-8 #### [facility] CLIA [id number] [address] [place] [address] 60445 RBC (Bld) [#/Vol] 3.43 10*6/uL Low 3.90-5.20 [facility] Comment on above: Order Comment: Speci men Type: BLOOD SPECIMEN Ordering Facility: [facility] Address: [place] [address] Performed By: #### 5 7021-8 #### [facility] CLIA [id number] [address] [place] [address] 12321 WBC (Bld) [#/Vol] 4.27 10*3/uL Normal 3.70-11.00 [facility] Comment on above: Order Comment: Speci men Type: BLOOD SPECIMEN Ordering Facility: [facility] Address: [place] [address] Performed By: #### 5 7021-8 #### [facility] CLIA [id number] [address] [place], [place] [address] [facility] Carcinoembryonic Ag [Mass/Vol] 2.7 ng/mL Normal <=2.9 [facility] Comment on above: Order Comment: Speci men Type: BLOOD SPECIMEN Ordering Facility: [facility] Address: [place] [address] Result Comment: Carc inoembryonic antigen test is used as an aid in monitoring response to treatment or recurrence in patients with established colorectal, breast, lung, prostatic, pancreatic, and ovarian carcinomas. Clinical correlation is required. The Carcinoembryonic antigen test was performed using the [employer] Pr[employer]el DXI paramagnetic particle chemiluminescent immunoassay method. Results obtained with different assay methods or kits cannot be used interchangeably. Performed By: #### 5 7021-8 #### [facility] CLIA [id number] [address] [place] [address] 68730 CNOVSPon 07-05-2023 CNOVS Visit (SP) Office ([place]) ----- EVAN GILL ([id number]) 1955 F Date Time Provider Department 07/05/23 9:15 AM TAPAN CORONA During your visit today, we recorded the following information about you: Temperature Pulse Respiration Blood pressure 98 degrees 77/minute 16/minute 102/54 Weight Height 65.2 kg 1.626 m Tapan Corona MD 07/05/2023 9:50 AM Signed PATIENT NAME: Evan Gill CLINIC NO.: [id number] ATTENDING PHYSICIAN: Tapan Corona MD DATE OF SERVICE: July 05, 2023 Some of the elements of this note have been copied from my previous progress note dated 06/14/2023. All the information has been reviewed carefully. Dear Dr. Bazzi here is an update on a follow up visit on female Evan Gill at the clinic July 05, 2023 Diagnosis: MRI staged T3c,N+M0- Adenocarcinoma of the mid-low rectum Treatment History: Xeloda and XRT 03/29/2023- Admitted 04/06/2023 with coronary spasms and elevated Troponin- ECHO normal, CTA negative for PE.Xeloda stopped shortly after completed radiation 05/10/2023 FOLFOX started 07/05/2023 HPI: Evan Gill is a 67 year [...] of hands/feet. No weakness. PHYSICAL EXAMINATION: BP 102/54 Pulse 77 Temp (Src) 98 (Temporal) Resp 16 Ht 5' 4.016 (1.63m) Wt 143 lb 11.8 oz (65.2kg) SpO2 100% BMI 24.66 kg/(m2). Wt 61.8 kg (136 lb 3.2 oz) [...] : Deferred LABS: Glucose (mg/dL) Date Value 07/05/2023 140 Potassium (mmol/L) Date Value 07/05/2023 3.9 Sodium (mmol/L) Date Value 07/05/2023 144 Chloride (mmol/L) Date Value 07/05/2023 108 CO2 (mmol/L) Date Value 07/05/2023 25 Creatinine (mg/dL) Date Value 07/05/2023 0.66 BUN (mg/dL) Date Value 07/05/2023 19 Anion Gap (mmol/L) Date Value 07/05/2023 11 Calcium, Total (mg/dL) Date Value 07/05/2023 8.7 Protein, Total (g/dL) Date Value 07/05/2023 5.8 Albumin (g/dL) Date Value 07/05/2023 3.8 Bilirubin, Total (mg/dL) Date Value 07/05/2023 0.2 Alkaline Phosphatase (U/L) Date Value 07/05/2023 73 AST (U/L) Date Value 07/05/2023 16 ALT (U/L) Date Value 07/05/2023 11 WBC Date Value Ref Range Status 07/05/2023 4.27 3.70 - 11.00 k/uL Final RBC Date Va (more content not included)... Normal [facility] Comprehensive metabolic 2000 panelon 07-05-2023 Albumin [Mass/Vol] 3.8 g/dL Low 3.9-4.9 [facility] Comment on above: Order Comment: Speci men Type: BLOOD SPECIMEN Ordering Facility: [facility] Address: [address] [place] [address] Performed By: #### 5 7021-8 #### [facility] CLIA [id number] [address] [place] [address] 77528 ALP [Catalytic activity/Vol] 73 U/L Normal 34-123 [facility] Comment on above: Order Comment: Speci men Type: BLOOD SPECIMEN Ordering Facility: [facility] Address: [address] [place] [address] Performed By: #### 5 7021-8 #### [facility] CLIA [id number] [address] [place] [address] ALT [Catalytic activity/Vol] 11 U/L Normal 7-38 [facility] Comment on above: Order Comment: Speci men Type: BLOOD SPECIMEN Ordering Facility: [facility] Address: [address] [place] [address] Performed By: #### 5 7021-8 #### [facility] CLIA [id number] [address] [place] [address] 83118 Anion gap [Moles/Vol] 11 mmol/L Normal 9-18 [facility] Comment on above: Order Comment: Speci men Type: BLOOD SPECIMEN Ordering Facility: [facility] Address: [address] [place] [address] Performed By: #### 5 7021-8 #### [facility] CLIA [id number] [address] [place] [address] 35039 AST [Catalytic activity/Vol] 16 U/L Normal 13-35 [facility] Comment on above: Order Comment: Speci men Type: BLOOD SPECIMEN Ordering Facility: [facility] Address: [address] [place] [address] Performed By: #### 5 7021-8 #### [facility] CLIA [id number] [address] [place] [address] 66756 Bilirubin [Mass/Vol] 0.2 mg/dL Normal 0.2-1.3 [facility] Comment on above: Order Comment: Speci men Type: BLOOD SPECIMEN Ordering Facility: [facility] Address: [address] [place] [address] Performed By: #### 5 7021-8 #### [facility] CLIA [id number] [address] [place] [address] 89221 Calcium [Mass/Vol] 8.7 mg/dL Normal 8.5-10.2 [facility] Comment on above: Order Comment: Speci men Type: BLOOD SPECIMEN Ordering Facility: [facility] Address: [address] [place] [address] Performed By: #### 5 7021-8 #### [facility] CLIA [id number] [address] [place] [address] 28928 Chloride [Moles/Vol] 108 mmol/L High 97-105 [facility] Comment on above: Order Comment: Speci men Type: BLOOD SPECIMEN Ordering Facility: [facility] Address: [address] [place] [address] Performed By: #### 5 7021-8 #### [facility] CLIA [id number] [address] [place] [address] 42517 CO2 [Moles/Vol] 25 mmol/L Normal 22-30 [facility] Comment on above: Order Comment: Speci men Type: BLOOD SPECIMEN Ordering Facility: [facility] Address: [address] [place] [address] Performed By: #### 5 7021-8 #### [facility] CLIA [id number] [address] [place] [address] 26463 Creatinine [Mass/Vol] 0.66 mg/dL Normal 0.58-0.96 [facility] Comment on above: Order Comment: Speci men Type: BLOOD SPECIMEN Ordering Facility: [facility] Address: [address] [place] [address] Performed By: #### 5 7021-8 #### [facility] CLIA [id number] [address] [place] [address] 01118 Creatinine and Glomerular filtration rate.predicted panel (S/P/Bld) 95 mL/min/1.73m??? Normal >=60 [facility] Comment on above: Order Comment: Speci men Type: BLOOD SPECIMEN Ordering Facility: [facility] Address: [address] [place] [address] Result Comment: Farhana mated Glomerular Filtration Rate [...] accurately reflect actual GFR. Performed By: #### 5 7021-8 #### [facility] CLIA [id number] [address] [place] [address] 84529 Glucose [Mass/Vol] 140 mg/dL High 74-99 [facility] Comment on above: Order Comment: Speci tatiana Type: BLOOD SPECIMEN Ordering Facility: [facility] Address: [address] [place] [address] 62033 Result Comment: The [place] [employer] Association (ADA) provides guidance for cutoff values for fasting glucose and random glucose. The ADA defines fasting as no caloric intake for at least 8 hours. Fasting plasma glucose results between 100 to 125 mg/dL indicate increased risk for diabetes (prediabetes). Fasting plasma glucose results greater than or equal to 126 mg/dL meet the criteria for diagnosis of diabetes. In the absence of unequivocal hyperglycemia, results should be confirmed by repeat testing. In a patient with classic symptoms of hyperglycemia or hyperglycemic crisis, random plasma glucose results greater than or equal to 200 mg/dL meet the criteria for diagnosis of diabetes. Reference: Standards of Medical Care in Diabetes 2016, [place] Diabetes Association. Diabetes Care. 2016.39(Suppl 1). Performed By: #### 5 7021-8 #### [facility] CLIA [id number] [address] [place] [address] 24132 Potassium [Moles/Vol] 3.9 mmol/L Normal 3.7-5.1 [facility] Comment on above: Order Comment: Mason men Type: BLOOD SPECIMEN Ordering Facility: [facility] Address: [address] [place] [address] 099[address] Performed By: #### 5 7021-8 #### [facility] CLIA [id number] [address] [place] [address] 50427 Protein [Mass/Vol] 5.8 g/dL Low 6.3-8.0 [facility] Comment on above: Order Comment: Moyi men Type: BLOOD SPECIMEN Ordering Facility: [facility] Address: [address] [place] [address] Performed By: #### 5 7021-8 #### [facility] CLIA [id number] [address] [place] [address] 99082 Sodium [Moles/Vol] 144 mmol/L Normal 136-144 [facility] Comment on above: Order Comment: Speci men Type: BLOOD SPECIMEN Ordering Facility: [facility] Address: [address] [place] [address] Performed By: #### 5 7021-8 #### [facility] CLIA [id number] [address] [place] [address] 33526 Urea nitrogen [Mass/Vol] 19 mg/dL Normal 7-21 [facility] Comment on above: Order Comment: Speci men Type: BLOOD SPECIMEN Ordering Facility: [facility] Address: [address] [place] [address] Performed By: #### 5 7021-8 #### [facility] CLIA [id number] [address] [place] [address] 93386 [facility] Ferritin [Mass/Vol] 15.6 ng/mL Normal 14.7-205.1 [facility] Comment on above: Order Comment: Speci men Type: BLOOD SPECIMENOrdering Facility: [facility] Address: [address] [place] [address] Performed By: #### 5 0190-8, 2275-10 ####[facility] LABIA [id number] [place] [address] [place] Iron and Iron binding capaci panel 07-05-2023 Iron [Mass/Vol] 52 ug/dL Normal 41-186 [facility] Comment on above: Order Comment: Speci men Type: BLOOD SPECIMENOrdering Facility: [facility] Address: [address] [place] [address] Performed By: #### 5 0190-8, 2275-10 ####[facility] LABIA [id number] [place] [address] [place] Iron binding capacity [Mass/Vol] 329 ug/dL Normal 232-386 [facility] Comment on above: Order Comment: Speci men Type: BLOOD SPECIMENOrdering Facility: [facility] Address: [address] [place] [address] Performed By: #### 5 0190-8, 2275- ####[facility] [id number] [place] [address] [place] Iron/TIBC [Molar ratio] 15.8 % Normal 15.0-57.0 [facility] Comment on above: Order Comment: Speci men Type: BLOOD SPECIMENOrdering Facility: [facility] Address: [address] [place] [address] Performed By: #### 5 0190-8, 2276-4 ####[facility] [id number] [place] [address] [place] Basophils Auto (Bld) [#/Vol] Ordered By: David Reyes on 06-26-2023 Basophils (Bld) [#/Vol] 0.0 10*3/uL 0.0-0.2 [facility] Basophils/100 WBC Auto (Bld) Ordered By: David Reyes on 06-26-2023 Basophils/100 WBC (Bld) 1.0 % . [facility] Calcium [Mass/volume] in Ser um or PlasmaOrdered By: David Reyes on 06-26-2023 Calcium [Mass/Vol] 8.6 mg/dL 8.6-10.3 [facility] Carbon dioxide, total [Moles /volume] in Serum or PlasmaOrdered By: David Reyes on 06-26-2023 CO2 [Moles/Vol] 24.5 mmol/L 21.0-31.0 [facility] Chloride [Moles/volume] in S jeevan or PlasmaOrdered By: David Reyes on 06-26-2023 Chloride [Moles/Vol] 109 mmol/L 98-107 [facility] Creatinine [Mass/volume] in Serum or PlasmaOrdered By: David Reyes on 06-26-2023 Creatinine [Mass/Vol] 0.74 mg/dL 0.60-1.20 [facility] Eosinophils Auto (Bld) [#/Vo l]Ordered By: David Reyes on 06-26-2023 Eosinophils (Bld) [#/Vol] 0.2 10*3/uL 0.0-0.45 [facility] Eosinophils/100 WBC Auto (Bl d)Ordered By: David Reyes on 06-26-2023 Eosinophils/100 WBC (Bld) 4.3 % . [facility] Erythrocyte distribution wid th Auto (RBC) [Ratio]Ordered By: David Reyes on 06-26-2023 Erythrocyte distribution width (RBC) [Ratio] 15.0 % 11.9-15.3 [facility] Glucose [Mass/volume] in Ser um or PlasmaOrdered By: David Reyes on 06-26-2023 Glucose [Mass/Vol] 91 mg/dL 70-100 [facility] Comment on above: ADA recommended refe rence rangeRandom Glucose Reference Range is dependent on time and content of last meal. Glucose of more than 200 mg/dL in a nonstressed, ambulatory subject supports the diagnosis of Diabetes Mellitus. Hematocrit Auto (Bld) [Volum e fraction]Ordered By: David Reyes on 06-26-2023 Hematocrit (Bld) [Volume fraction] 33.0 % 34.0-46.4 [facility] Hemoglobin [Mass/volume] in BloodOrdered By: David Reyes on 06-26-2023 Hemoglobin (Bld) [Mass/Vol] 11.1 g/dL 11.8-15.4 [facility] Leukocytes [#/volume] correc french for nucleated erythrocytes in Blood by Automated counOrdered By: David Reyes on 06-26-2023 WBC corrected for nucl RBC Auto (Bld) [#/Vol] 4.3 10*3/uL 3.8-11.6 [facility] Lymphocytes Auto (Bld) [#/Vo l]Ordered By: David Reyes on 06-26-2023 Lymphocytes (Bld) [#/Vol] 0.9 10*3/uL 1.00-4.8 [facility] Lymphocytes/100 WBC Auto (Bl d)Ordered By: David Reyes on 06-26-2023 Lymphocytes/100 WBC (Bld) 21.8 % . [facility] MCH Auto (RBC) [Entitic mass ]Ordered By: David Reyes on 06-26-2023 MCH (RBC) [Entitic mass] 29.7 pg 24.7-34.3 [facility] MCHC Auto (RBC) [Mass/Vol]Or dered By: David Reyes on 06-26-2023 MCHC (RBC) [Mass/Vol] 33.5 g/dL 32.0-35.0 [facility] MCV Auto (RBC) [Entitic vol] Ordered By: David Reyes on 06-26-2023 MCV (RBC) [Entitic vol] 88.6 fL 80-100 [facility] Monocytes Auto (Bld) [#/Vol] Ordered By: David Reyes on 06-26-2023 Monocytes (Bld) [#/Vol] 0.4 10*3/uL 0.0-0.8 [facility] Monocytes/100 WBC Auto (Bld) Ordered By: David Reyes on 06-26-2023 Monocytes/100 WBC (Bld) 8.2 % . [facility] Neutrophils Auto (Bld) [#/Vo l]Ordered By: David Reyes on 06-26-2023 Neutrophils (Bld) [#/Vol] 2.8 10*3/uL 1.8-7.7 [facility] Neutrophils/100 WBC Auto (Bl d)Ordered By: David Reyes on 06-26-2023 Neutrophils/100 WBC (Bld) 64.7 % . [facility] No Panel InformationOrdered By: David Reyes on 06-26-2023 Estimated GFR (CKD-EPI) > 60.0 mL/Min [facility] Creatinine Clearance (Chem 57.31 [facility] Nucleated erythrocytes [Pres ence] in Blood by Automated countOrdered By: David Reyes on 06-26-2023 Nucleated RBC Auto Ql (Bld) 0.0 /100{WBC} 0-0.5 [facility] Platelet mean volume Auto (B ld) [Entitic vol]Ordered By: David Reyes on 06-26-2023 Platelet mean volume (Bld) [Entitic vol] 6.5 fL 6.3-10.7 [facility] Platelets Auto (Bld) [#/Vol] Ordered By: David Reyes on 06-26-2023 Platelets (Bld) [#/Vol] 306 10*3/uL 150-450 [facility] Potassium [Moles/volume] in Serum or PlasmaOrdered By: David Reyes on 06-26-2023 Potassium [Moles/Vol] 4.1 mmol/L 3.5-5.1 [facility] RBC Auto (Bld) [#/Vol]Ordere d By: David Reyes on 06-26-2023 RBC (Bld) [#/Vol] 3.73 10*6/uL 3.60-5.00 [facility] Serum or plasma anion gap de terminationOrdered By: David Reyes on 06-26-2023 Anion gap [Moles/Vol] 11.6 mmol/L 6.0-15.0 [facility] Sodium [Moles/volume] in Ser um or PlasmaOrdered By: David Reyes on 06-26-2023 Sodium [Moles/Vol] 141 mmol/L 136-145 [facility] Urea nitrogen [Mass/volume] in Serum or PlasmaOrdered By: David Reyes on 06-26-2023 Urea nitrogen [Mass/Vol] 21 mg/dL 7-25 [facility] WBC Auto (Bld) [#/Vol]Ordere d By: David Reyes on 06-26-2023 WBC (Bld) [#/Vol] 4.3 10*3/uL 3.8-11.6 [facility] CNPNon 06-21-2023 CNPN Telephone ([place]) ----- EVAN GILL ([id number]) 1955 F Date Time Provider Department 06/21/23 COLLEEN SOLORIO During your visit today, we recorded the following information about you: Colleen Solorio, RN 06/21/2023 12:25 PM Signed Pt was in for education yesterday and [...] this during her education. Colleen Solorio RN Allergies As of Date: 06/21/2023 (No Known Allergies) Date Reviewed: 06/20/2023 Reviewed by: Brandie Clayton RP - Fully Assessed Reason for Visit: Care Coordination [349] Cmt: Medication update Prescriptions as of 06/21/2023 - Amoxicillin 500 mg tablet FOR DENTAL WORK - omeprazole (PRILOSEC) 40 mg capsule Take [...] Take 1 Each by mouth once daily. [employer] supplies guzman mitochondrial micronutrients and a smart [...] 1 tablet by mouth once daily. - aspirin, enteric coated (ASPIRIN, ENTERIC COATED) 81 mg EC tablet Take 81 mg by mouth once daily. - docosahexaenoic acid/epa (FISH OIL ORAL) Take 2,000 mg by mouth two times a day. - calcium carbonate/vitamin d3(CALCIUM 600 WITH VITAMIN D3 600 MG (1,500 MG)-400 UNIT CAP) Take 1 tablet by mouth once daily. Problem List As Of Date 06/21/2023 Noted Resolved OSTEOARTHROS NOS-ANKLE [M19.079] 12/20/2005 Personal History of Malignant Melanoma of Skin *04/28/2009 Rectal cancer (HCC) [C20] 06/14/2023 Encounter Status:Closed by COLLEEN SOLOR[facility] Nurse Visit ([place]) ----- JAIROEVAN ([id number]) 1955 F Date Time Provider Department 06/20/23 10:00 AM COLLEEN SOLORIO During your visit today, we recorded the following information about you: Brandie Clayton RPh 06/20/2023 11:35 AM Signed [facility] Department of Pharmacy Oncology Pharmacy Medication Education Patient Name: Evan Gill Primary Oncologist: Cole Diagnosis: rectal cancer Evna Gill is a 67 year old patient and daughter here today for medication education for IV FLUOROURACIL , LEUCOVORIN , and OXALIPLATIN . Drug Interactions: Clinically significant interactions with chemotherapy, immunosuppression, or other standard of care treatment plan medications anticipated: No. There are no [...] with Vitamin E, B12 + Active Folate MEDICATION, NON-DATABASE Take 1 Each by mouth once daily. [employer] supplies guzman mitochondrial micronutrients and a smart combination of alpha lipoic acid, N-acetyl cysteine, and acetyl L-carnitine ondansetron orally disintegrating [...] time (15 minute increments) with the patient Serena Erica, [facility] Pager: Colleen Solorio RN 06/20/2023 11:10 AM Signed ONCOLOGY PATIENT EDUCATION NOTE TOPIC: Chemotherapy, Medications: [...] medical regimen MEDICATION PRESCRIBED-Accurate knowledge of prescribed medicatio (more content not included)... Normal [facility] CBC W Auto Differential pane l (Bld)on 06-14-2023 Basophils (Bld) [#/Vol] 0.03 10*3/uL Normal <0.11 [facility] Comment on above: Order Comment: Speci men Type: BLOOD SPECIMEN Ordering Facility: [facility] Address: [address] [place] [address] Performed By: #### 5 7021-8 #### [facility] CLIA [id number] [address] [place] [address] 22344 Basophils/100 WBC (Bld) 0.3 % Normal [facility] Comment on above: Order Comment: Speci men Type: BLOOD SPECIMEN Ordering Facility: [facility] Address: [address] [place] [address] Performed By: #### 5 7021-8 #### [facility] CLIA [id number] [address] [place] [address] 87575 Differential cell count method Nom (Bld) Auto Normal [facility] Comment on above: Order Comment: Speci men Type: BLOOD SPECIMEN Ordering Facility: [facility] Address: [address] [place] [address] Performed By: #### 5 7021-8 #### [facility] CLIA [id number] [address] [place] [address] 78287 Eosinophils (Bld) [#/Vol] 0.06 10*3/uL Normal <0.46 [facility] Comment on above: Order Comment: Speci men Type: BLOOD SPECIMEN Ordering Facility: [facility] Address: [address] [place] [address] Performed By: #### 5 7021-8 #### [facility] CLIA [id number] [address] [place] [address] 55540 Eosinophils/100 WBC (Bld) 0.5 % Normal [facility] Comment on above: Order Comment: Speci men Type: BLOOD SPECIMEN Ordering Facility: [facility] Address: [address] [place] [address] Performed By: #### 5 7021-8 #### [facility] CLIA [id number] [address] [place] [address] 00393 Erythrocyte distribution width (RBC) [Ratio] 15.1 % High 11.5-15.0 [facility] Comment on above: Order Comment: Speci men Type: BLOOD SPECIMEN Ordering Facility: [facility] Address: [address] [place] [address] Performed By: #### 5 7021-8 #### [facility] CLIA [id number] [address] [place] [address] 83485 Hematocrit (Bld) [Volume fraction] 32.5 % Low 36.0-46.0 [facility] Comment on above: Order Comment: Speci men Type: BLOOD SPECIMEN Ordering Facility: [facility] Address: [address] [place] [address] Performed By: #### 5 7021-8 #### [facility] CLIA [id number] [address] [place] [address] 35124 Hemoglobin (Bld) [Mass/Vol] 10.5 g/dL Low 11.5-15.5 [facility] Comment on above: Order Comment: Speci men Type: BLOOD SPECIMEN Ordering Facility: [facility] Address: [address] [place] [address] Performed By: #### 5 7021-8 #### [facility] CLIA [id number] [address] [place] [address] 81774 Immature granulocytes (Bld) [#/Vol] 0.05 10*3/uL Normal <0.10 [facility] Comment on above: Order Comment: Speci men Type: BLOOD SPECIMEN Ordering Facility: [facility] Address: [address] [place] [address] Performed By: #### 5 7021-8 #### [facility] CLIA [id number] [address] [place] [address] 28155 Immature granulocytes/100 WBC (Bld) 0.5 % Normal [facility] Comment on above: Order Comment: Speci men Type: BLOOD SPECIMEN Ordering Facility: [facility] Address: [address] [place] [address] Performed By: #### 5 7021-8 #### [facility] CLIA [id number] [address] [place] [address] 69658 Lymphocytes (Bld) [#/Vol] 1.51 10*3/uL Normal 1.00-4.00 [facility] Comment on above: Order Comment: Speci men Type: BLOOD SPECIMEN Ordering Facility: [facility] Address: [address] [place] [address] Performed By: #### 5 7021-8 #### [facility] CLIA [id number] [address] [place] [address] 81196 Lymphocytes/100 WBC (Bld) 13.7 % Normal [facility] Comment on above: Order Comment: Speci men Type: BLOOD SPECIMEN Ordering Facility: [facility] Address: [address] [place] [address] Performed By: #### 5 7021-8 #### [facility] CLIA [id number] [address] [place] [address] 32110 MCH (RBC) [Entitic mass] 28.8 pg Normal 26.0-34.0 [facility] Comment on above: Order Comment: Speci men Type: BLOOD SPECIMEN Ordering Facility: [facility] Address: [address] [place] [address] Performed By: #### 5 7021-8 #### [facility] CLIA [id number] [address] [place] [address] 88805 MCHC (RBC) [Mass/Vol] 32.3 g/dL Normal 30.5-36.0 [facility] Comment on above: Order Comment: Speci men Type: BLOOD SPECIMEN Ordering Facility: [facility] Address: [address] [place] [address] Performed By: #### 5 7021-8 #### [facility] CLIA [id number] [address] [place] [address] 75772 MCV (RBC) [Entitic vol] 89.3 fL Normal 80.0-100.0 [facility] Comment on above: Order Comment: Speci men Type: BLOOD SPECIMEN Ordering Facility: [facility] Address: [address] [place] [address] Performed By: #### 5 7021-8 #### [facility] CLIA [id number] [address] [place] [address] 80928 Monocytes (Bld) [#/Vol] 0.97 10*3/uL High <0.87 [facility] Comment on above: Order Comment: Speci men Type: BLOOD SPECIMEN Ordering Facility: [facility] Address: [address] [place] [address] Performed By: #### 5 7021-8 #### [facility] CLIA [id number] [address] [place] [address] 82548 Monocytes/100 WBC (Bld) 8.8 % Normal [facility] Comment on above: Order Comment: Speci men Type: BLOOD SPECIMEN Ordering Facility: [facility] Address: [address] [place] [address] Performed By: #### 5 7021-8 #### [facility] CLIA [id number] [address] [place] [address] 79474 Neutrophils (Bld) [#/Vol] 8.39 10*3/uL High 1.45-7.50 [facility] Comment on above: Order Comment: Speci men Type: BLOOD SPECIMEN Ordering Facility: [facility] Address: [address] [place] [address] Performed By: #### 5 7021-8 #### [facility] CLIA [id number] [address] [place] [address] 05152 Neutrophils/100 WBC (Bld) 76.2 % Normal [facility] Comment on above: Order Comment: Speci men Type: BLOOD SPECIMEN Ordering Facility: [facility] Address: [address] [place] [address] Performed By: #### 5 7021-8 #### [facility] CLIA [id number] [address] [place] [address] 42998 Nucleated RBC (Bld) [#/Vol] 10*3/uL Normal <0.01 [facility] Comment on above: Order Comment: Speci men Type: BLOOD SPECIMEN Ordering Facility: [facility] Address: [address] [place] [address] Performed By: #### 5 7021-8 #### [facility] CLIA [id number] [address] [place] [address] 59866 Nucleated RBC/100 WBC (Bld) [Ratio] 0.0 /100 WBC Normal [facility] Comment on above: Order Comment: Speci men Type: BLOOD SPECIMEN Ordering Facility: [facility] Address: [address] [place] [address] Performed By: #### 5 7021-8 #### [facility] CLIA [id number] [address] [place] [address] 83185 Platelet mean volume (Bld) [Entitic vol] 8.4 fL Low 9.0-12.7 [facility] Comment on above: Order Comment: Speci men Type: BLOOD SPECIMEN Ordering Facility: [facility] Address: [address] [place] [address] Performed By: #### 5 7021-8 #### [facility] CLIA [id number] [address] [place] [address] 65104 Platelets (Bld) [#/Vol] 300 10*3/uL Normal 150-400 [facility] Comment on above: Order Comment: Speci men Type: BLOOD SPECIMEN Ordering Facility: [facility] Address: [address] [place] [address] Performed By: #### 5 7021-8 #### [facility] CLIA [id number] [address] [place] [address] 63533 RBC (Bld) [#/Vol] 3.64 10*6/uL Low 3.90-5.20 [facility] Comment on above: Order Comment: Speci men Type: BLOOD SPECIMEN Ordering Facility: [facility] Address: [address] [place] [address] Performed By: #### 5 7021-8 #### [facility] CLIA [id number] [address] [place] [address] [address] WBC (Bld) [#/Vol] 11.01 10*3/uL High 3.70-11.00 [facility] Comment on above: Order Comment: Speci men Type: BLOOD SPECIMEN Ordering Facility: [facility] Address: [address] [place] [address] Performed By: #### 5 7021-8 #### [facility] CLIA [id number] [address] [place] [address] 48225 CEA SerPl-mCncon 06-14-2023 Carcinoembryonic Ag [Mass/Vol] 3.1 ng/mL High <=2.9 [facility] Comment on above: Order Comment: Mason simpson Type: BLOOD SPECIMEN Ordering Facility: [facility] Address: [address], [place] [address] Result Comment: Carc inoembryonic antigen test is used as an aid in monitoring response to treatment or recurrence in patients with established colorectal, breast, lung, prostatic, pancreatic, and ovarian carcinomas. Clinical correlation is required. The Carcinoembryonic antigen test was performed using the Tony Praccel Unicel DXI paramagnetic particle chemiluminescent immunoassay method. Results obtained with different assay methods or kits cannot be used interchangeably. Performed By: #### 2 4323-8 #### [facility] CLIA [id number] [address] [place] [address] 14110 CNOVSPon 06-14-2023 CNOVSP Visit (SP) Office ([place]) ----- EVAN GILL ([id number]) 1955 F Date Time Provider Department 06/14/23 2:45 PM TAPAN CORONA During your visit today, we recorded the following information about you: Temperature Pulse Respiration Blood pressure 98 degrees 77/minute 16/minute 111/56 Weight Height 63.4 kg 1.626 m Tapan Corona MD 06/14/2023 3:41 PM Signed PATIENT NAME: Evan Gill CLINIC NO.: [id number] ATTENDING PHYSICIAN: Tapan Corona MD DATE OF SERVICE: June 14, 2023 Some of the elements of this note have been copied from my previous progress note dated 04/28/2023. All the information has been reviewed carefully. [...] 12.8 oz (63.4kg) SpO2 94% BMI 23.98 kg/(m2). Wt 61.8 kg (136 lb 3.2 oz) [...] Final RBC Date Value Ref Range Status 06/14 (more content not included)... Normal [facility] CNPNon 06-14-2023 CNPN Telephone (NCCAP) ----- EVAN GILL ([id number]) 1955 F Date Time Provider Department 06/14/23 CARLYLAMINECarson TAPAN [facility] During your visit today, we recorded the following information about you: Jessika Georges 06/14/2023 3:56 PM Signed Please ref to Dr Ion Eckert for port placement. His office to call the patient to schedule after review of records. Shira, please fax records Jordin, Please follow up on this appt. Thank you Laisha Hendrickson 06/15/2023 7:33 AM Signed Shira: Information ready for you. Amber Combs 06/15/2023 7:52 AM Signed Records faxed to Dr. Eckert. Amber Galeana 06/21/2023 10:55 AM Signed Patient is scheduled for port placement with on 06/26/23. Allergies As of Date: 06/14/2023 (No Known Allergies) Date Reviewed: 06/14/2023 Reviewed by: Lewis October - Fully Assessed Reason for Visit: Future Appointment [256] Prescriptions as of 06/23/2023 - Amoxicillin 500 mg tablet FOR DENTAL WORK - omeprazole (PRILOSEC) 40 mg capsule Take [...] 1 tablet by mouth once daily. - aspirin, enteric coated (ASPIRIN, ENTERIC COATED) 81 mg EC tablet Take 81 mg by mouth once daily. - docosahexaenoic acid/epa (FISH OIL ORAL) Take 2,000 mg by mouth two times a day. - calcium carbonate/vitamin d3(CALCIUM 600 WITH VITAMIN D3 600 MG (1,500 MG)-400 UNIT CAP) Take 1 tablet by mouth once daily. Problem List As Of Date 06/14/2023 Noted Resolved OSTEOARTHROS NOS-ANKLE [M19.079] 12/20/2005 Personal History of Malignant Melanoma of Skin *04/28/2009 Rectal cancer (HCC) [C20] 06/14/2023 Encounter Status:Closed by JESSIKA GEORGES on 06/23/23 Normal [facility] Comprehensive metabolic 2000 panelon 06-14-2023 Albumin [Mass/Vol] 4.2 g/dL Normal 3.9-4.9 [facility] Comment on above: Order Comment: Speci men Type: BLOOD SPECIMEN Ordering Facility: [facility] Address: [address] [place], [place] [address] Performed By: #### 5 7021-8 #### [facility] CLIA [id number] [address] [place] [address] 18103 ALP [Catalytic activity/Vol] 67 U/L Normal 34-123 [facility] Comment on above: Order Comment: Speci men Type: BLOOD SPECIMEN Ordering Facility: [facility] Address: [address] [place] [address] Performed By: #### 5 7021-8 #### [facility] CLIA [id number] [address] [place] [address] 56479 ALT [Catalytic activity/Vol] 16 U/L Normal 7-38 [facility] Comment on above: Order Comment: Speci men Type: BLOOD SPECIMEN Ordering Facility: [facility] Address: [address] [place] [address] Performed By: #### 5 7021-8 #### [facility] CLIA [id number] [address] [place] [address] 29862 Anion gap [Moles/Vol] 9 mmol/L Normal 9-18 [facility] Comment on above: Order Comment: Speci men Type: BLOOD SPECIMEN Ordering Facility: [facility] Address: [address] [place] [address] Performed By: #### 5 7021-8 #### [facility] CLIA [id number] [address] [place] [address] 31099 AST [Catalytic activity/Vol] 15 U/L Normal 13-35 [facility] Comment on above: Order Comment: Speci men Type: BLOOD SPECIMEN Ordering Facility: [facility] Address: [address] [place] [address] Performed By: #### 5 7021-8 #### [facility] CLIA [id number] [address] [place] [address] 21996 Bilirubin [Mass/Vol] 0.2 mg/dL Normal 0.2-1.3 [facility] Comment on above: Order Comment: Speci men Type: BLOOD SPECIMEN Ordering Facility: [facility] Address: [address] [place] [address] Performed By: #### 5 7021-8 #### [facility] CLIA [id number] [address] [place] [address] 23711 Calcium [Mass/Vol] 9.1 mg/dL Normal 8.5-10.2 [facility] Comment on above: Order Comment: Speci men Type: BLOOD SPECIMEN Ordering Facility: [facility] Address: [address] [place] [address] Performed By: #### 5 7021-8 #### [facility] CLIA [id number] [address] [place] [address] 58545 Chloride [Moles/Vol] 108 mmol/L High 97-105 [facility] Comment on above: Order Comment: Speci men Type: BLOOD SPECIMEN Ordering Facility: [facility] Address: [address] [place] [address] Performed By: #### 5 7021-8 #### [facility] CLIA [id number] [address] [place] [address] 28430 CO2 [Moles/Vol] 25 mmol/L Normal 22-30 [facility] Comment on above: Order Comment: Speci men Type: BLOOD SPECIMEN Ordering Facility: [facility] Address: [address] [place] [address] Performed By: #### 5 7021-8 #### [facility] CLIA [id number] [address] [place] [address] 52758 Creatinine [Mass/Vol] 0.71 mg/dL Normal 0.58-0.96 [facility] Comment on above: Order Comment: Speci men Type: BLOOD SPECIMEN Ordering Facility: [facility] Address: [address] [place] [address] Performed By: #### 5 7021-8 #### [facility] CLIA [id number] [address] [place] [address] 10737 Creatinine and Glomerular filtration rate.predicted panel (S/P/Bld) 92 mL/min/1.73m??? Normal >=60 [facility] Comment on above: Order Comment: Mason simpson Type: BLOOD SPECIMEN Ordering Facility: [facility] Address: [place] [address] Result Comment: Farhana mated Glomerular Filtration Rate [...] accurately reflect actual GFR. Performed By: #### 5 7021-8 #### [facility] CLIA [id number] [address] [place] [address] 23834 Glucose [Mass/Vol] 118 mg/dL High 74-99 [facility] Comment on above: Order Comment: Mason simpson Type: BLOOD SPECIMEN Ordering Facility: [facility] Address: [place] [address] Result Comment: The [place] [employer] (ADA) provides guidance for cutoff values for fasting glucose and random glucose. The ADA defines fasting as no caloric intake for at least 8 hours. Fasting plasma glucose results between 100 to 125 mg/dL indicate increased risk for diabetes (prediabetes). Fasting plasma glucose results greater than or equal to 126 mg/dL meet the criteria for diagnosis of diabetes. In the absence of unequivocal hyperglycemia, results should be confirmed by repeat testing. In a patient with classic symptoms of hyperglycemia or hyperglycemic crisis, random plasma glucose results greater than or equal to 200 mg/dL meet the criteria for diagnosis of diabetes. Reference: Standards of Medical Care in Diabetes 2016, [place] Diabetes Association. Diabetes Care. 2016.39(Suppl 1). Performed By: #### 5 7021-8 #### [facility] CLIA [id number] [address] [place] [address] 67262 Potassium [Moles/Vol] 4.4 mmol/L Normal 3.7-5.1 [facility] Comment on above: Order Comment: Mason simpson Type: BLOOD SPECIMEN Ordering Facility: [facility] Address: [address] [place] [address] Performed By: #### 5 7021-8 #### [facility] CLIA [id number] [address] [place] [address] Protein [Mass/Vol] 6.6 g/dL Normal 6.3-8.0 [facility] Comment on above: Order Comment: Speci men Type: BLOOD SPECIMEN Ordering Facility: [facility] Address: [address] [place] [address] Performed By: #### 5 7021-8 #### [facility] CLIA [id number] [address] [place] [address] 59699 Sodium [Moles/Vol] 142 mmol/L Normal 136-144 [facility] Comment on above: Order Comment: Speci men Type: BLOOD SPECIMEN Ordering Facility: [facility] Address: [address] [place] [address] Performed By: #### 5 7021-8 #### [facility] CLIA [id number] [address] [place] [address] 03192 Urea nitrogen [Mass/Vol] 23 mg/dL High 7-21 [facility] Comment on above: Order Comment: Speci men Type: BLOOD SPECIMEN Ordering Facility: [facility] Address: [address] [place] [address] Performed By: #### 5 7021-8 #### [facility] CLIA [id number] [address] [place] [address] 68768 MRI RECTUM WO/W IVCONon 12-0 MRI RECTUM WO/W IVCON * * *Final Report* * * DATE OF EXAM: Jun 12 2023 12:34PM QBM [id number] - MRI RECTUM WO/W IVCON / PROCEDURE REASON: Rectal cancer (HCC) * * * * Physician Interpretation * * * * MRI OF THE PELVIS WITHOUT AND WITH CONTRAST: RECTAL CANCER RESTAGING CLINICAL HISTORY: Rectal Cancer RESTAGING Pretreatment Tumor Staging: T3c,N+M0- Rectal tumor histology: Adenocarcinoma Prior chemotherapy or radiation: Yes both COMPARISON: MRI rectum 03/15/2023 TECHNIQUE: Magnet: Siemens Janee 3T scanner. Multiplanar MRI with multiple sequences before and after contrast. Contrast: IV: 14 ml of Dotarem Rectal: 60 ml of Surgilube RESULT: TREATED PRIMARY TUMOR CHARACTERISTICS (Compare to pre-treatment): DWI (with associated low ADC) ? restricted diffusion and low ADC in tumor or tumor bed: Absent. MRI-T2W: Mixed dark T2/scar and intermediate signal. T2 bright mucin (cannot distinguish between cellular and acellular mucin): Absent. Description: Significant interval decrease in thickness of treated tumor. Distance of the inferior margin of treated tumor to the anal verge: 4.5 cm (4:22) Distance of the inferior margin to the top of sphincter complex/anorectal junction: 2.1 cm (4:22) Relationship to anterior peritoneal reflection: Below Craniocaudal length: 4.1 cm (4:18) Pre-treatment craniocaudal length: 4.3 cm Tumor location: Mid to lower rectum Maximal wall thickness: 0.7 cm (7:15) Pre-treatment wall thickness: 1.1 cm Invasion of anal sphincter complex: Absent. Anal canal involvement: None. TUMOR DEPOSITS AND EXTRAMURAL VASCULAR INVASION (EMVI): Tumor deposits:(separate from metastatic lymph nodes): No. EMVI: No, complete regression. MESORECTAL FASCIA (MRF): Shortest distance of extraluminal part of the tumor to MRF: Abuts anteriorly (7:19) Tumor extension through the peritonealized portion of the rectum into peritoneal fat: No extension into peritoneal fat. Is there a separate tumor deposit, LN or EMVI threatening (?1mm and ?2 mm) or invading (< 1 mm) the MRF? 0.5 cm anterior left mesorectal node within 1 mm of the mesorectal fascia (11:44) previously measured 0.8 cm. Comments: Previously described 0.7 cm right mesorectal lymph node and 0.5 cm left mesorectal lymph nodes are no longer visualized. T4 disease interval change: N/A POST-TREATMENT TUMOR REGRESSION: Grade 3 - Moderate response LYMPH NODES: Mesorectal/superior rectal lymph nodes and/or tumor deposits: N Stage: N2 Index nodes: 0.5 x 0.4 cm left mesorectal lymph node has decreased in size, previously measured 0.9 x 0.8 cm (16:44). This demonstrates some intrinsic T1 hyperintensity. Biliary Suspicious extra mesorectal lymph nodes: None OTHER STRUCTURES/ ORGANS INVNone.: OTHER FINDINGS: Mucosal hyperemia and slight wall thickening of the posterior bladder wall suggesting radiation cystitis. Grade 1 anterolisthesis of L5 on S1. Study was interpreted by Dr. Saldaña a member of the rectal cancer multidisciplinary tumor board. Impression: Decrease in size of mid rectal mass [...] nodes: Yes. Suspicious Extramesorectal lymph nodes: No. v 12/09/20 [employer]: HENRY Transcribe Date/Time: Jun 12 2023 12:49P Dictated by : ARELY CUELLAR MD This examination was interpreted and the report reviewed and electronically signed by: ENEDINA SALDAÑA MD on Jun 12 2023 1:55PM EST [id number] Normal [facility] ANES POSTPROC EVALon 023 ANES POSTPROC EVAL HNO ID: [id number] Author: David Carpenter MD Service: Anesthesiology Author [...] June 08, 2023 TIME: 1:48 PM CSN: [id number] [facility] ANES PRE-OPon 06-08-2023 ANES PRE-OP HNO ID: [id number] Author: David Carpenter MD Service: Anesthesiology Author [...] and consent discussed: yes. Patient / Responsible Alliance Party agrees to proceed: yes Patient / Surrogate [...] Take 1 Each by mouth once daily. [employer] supplies guzman mitochondrial micronutrients and a smart [...] June 08, 2023 TIME: 12:43 PM CSN: [id number] [facility] CNPNon 06-08-2023 [facility] Flexible Sigmoidoscopyon Flexible sigmoidoscopy [facility] Gastrointestinal Endoscopy Patient Name: Evan Gill Procedure Date: 06/08/2023 12:46 PM Date of : 1955 Admit Type: Outpatient Age: 67 Room: [place] [address] Gender: Female Note Status: Finalized Attending MD: [...] present medications. Procedure Code(s): --- Professional --- 04274, Sigmoidoscopy, flexible; diagnostic, including collection of specimen(s) by brushing or washing, when performed (separate procedure) Diagnosis Code(s): --- Professional --- K62.89, Other specified diseases of anus and rectum C20, Malignant neoplasm of rectum K64.8, Other hemorrhoids CPT copyright 2020 [employer]. All rights reserved. The codes documented in this report are preliminary and upon hcc coders review may be revised to meet current compliance requirements. Attending Participation: I personally performed the entire procedure. Scope In: 12:58:00 PM Scope Out: 1:03:43 PM MD Laisha Quinteros MD 06/08/2023 1:11:49 PM This report has been signed electronically by Laisha Singer MD Number of Addenda: 0 Note Initiated On: 06/08/2023 12:46 PM Estimated Blood Loss: Estimated blood loss: none. Normal [facility] HISTORY PHYSICALon 3 HISTORY PHYSICAL HNO ID: [id number] Author: Laisha Singer MD Service: Colorectal Author [...] DATE: June 08, 2023 TIME: 12:39 PM [facility] SIGMOIDOSCOPYon 06-08-2023 [facility] CNOVon 05-29-2023 CNOV Office Visit (RADTSA ) ----- JAIROEVAN ([id number]) 1955 F Date Time Provider Department 05/29/23 10:45 AM Del HUDSON During your visit today, we recorded the following information about you: Temperature Pulse Respiration Blood pressure 96.7 degrees 64/minute 18/minute 134/78 Weight 62.6 kg Del Hudson MD 05/31/2023 2:34 PM Signed Radiation Oncology - Follow Up Note PATIENT [...] with Vitamin E, B12 + Active Folate MEDICATION, NON-DATABASE Take 1 Each by mouth once daily. [employer] supplies guzman mitochondrial micronutrients and a smart combination of alpha lipoic acid, N-acetyl cysteine, and acetyl L-carnitine ondansetron orally disintegrating [...] BP 134/78 Pulse 64 Temp (!) 35.9 ?C (96.7 ?F) Resp 18 Wt 62.6 kg (138 lb) SpO2 98% BMI 23.68 kg/m? KPS: 100 General Appearance: Alert and oriented. No acute distress. Rectal: Deferred Musculoskeletal: No edema. Normal ROM in extremities. No bone or spine tenderness. Neuro: Speech fluent. Gait normal. No focal deficits. Skin: No rashes noted Lymphatics: No palpable lymphadenopathy. ASSESSMENT AND PLAN: MRI staged T3c,N+M0- Adenocarcinoma of the mid-low rectum Doing well after completion of radiation, initially with combined capecitabine chemotherapy however due to cardiac issues this was stopped and completed radiation without further concurrent chemotherapy. She has had significant improvement in her rectal symptoms. No significant postradiation related issues including pelvic pain or bleeding. She has further follow-up including endoscopy and scan coming up. I will plan to see her back in 2 to 3 mon (more content not included)... Normal [facility] Creatine kinase [Enzymatic a ctivity/volume] in Serum or PlasmaOrdered By: Lynnette Hare on 04-06-2023 CK [Catalytic activity/Vol] 36 U/L 30-223 [facility] Troponin I.cardiac [Mass/vol ume] in Serum or Plasma by Detection limit <= 0.01 ng/Ordered By: Lynnette Hare on 04-06-2023 Troponin I.cardiac DL <= 0.01 ng/mL [Mass/Vol] 5.8 pg/mL 0.0-15.0 [facility] Activated partial thrombopla stin time (aPTT) in platelet poor plasma by coagulation aOrdered By: Gregory Rangel on 04-05-2023 aPTT Coag (PPP) [Time] 27.9 s 25.1-36.5 [facility] Comment on above: A hematocrit value g reater than 55% may lead to inaccurate results in coagulation testing. Patients having hematocrit values >55% require a special collection tube for coagulation studies. Please contact the laboratory at [phone] for redraw instructions. Alanine aminotransferase [En zymatic activity/volume] in Serum or PlasmaOrdered By: Gregory Rangel on 04-05-2023 ALT [Catalytic activity/Vol] 18 U/L 7-52 [facility] Albumin [Mass/volume] in Ser um or Plasma by Bromocresol green (BCG) dye binding methoOrdered By: Gregory Rangel on 04-05-2023 Albumin BCG dye [Mass/Vol] 4.5 g/dL 3.5-5.7 [facility] Alkaline phosphatase [Enzyma tic activity/volume] in Serum or PlasmaOrdered By: Gregory Rangel on 04-05-2023 ALP [Catalytic activity/Vol] 50 U/L 34-104 [facility] Aspartate aminotransferase [ Enzymatic activity/volume] in Serum or PlasmaOrdered By: Gregory Rangel on 04-05-2023 AST [Catalytic activity/Vol] 16 U/L 13-39 [facility] Basophils Auto (Bld) [#/Vol] Ordered By: Gregory Rangel on 04-05-2023 Basophils (Bld) [#/Vol] 0.0 10*3/uL 0.0-0.2 [facility] Basophils/100 WBC Auto (Bld) Ordered By: Gregory Rangel on 04-05-2023 Basophils/100 WBC (Bld) 0.7 % . [facility] Bilirubin.direct [Mass/volum e] in Serum or PlasmaOrdered By: Gregory Rangel on 04-05-2023 Bilirubin.direct [Mass/Vol] 0.10 mg/dL 0.03-0.18 [facility] Bilirubin.total [Mass/volume ] in Serum or PlasmaOrdered By: Gregory Rangel on 04-05-2023 Bilirubin [Mass/Vol] 0.5 mg/dL 0.3-1.0 [facility] Calcium [Mass/volume] in Ser um or PlasmaOrdered By: Gregory Ranegl on 04-05-2023 Calcium [Mass/Vol] 9.4 mg/dL 8.6-10.3 [facility] Carbon dioxide, total [Moles /volume] in Serum or PlasmaOrdered By: Gregory Rangel on 04-05-2023 CO2 [Moles/Vol] 23.1 mmol/L 21.0-31.0 [facility] Chloride [Moles/volume] in S jeevan or PlasmaOrdered By: Gregory Rangel on 04-05-2023 Chloride [Moles/Vol] 102 mmol/L 98-107 [facility] Creatine kinase [Enzymatic a ctivity/volume] in Serum or PlasmaOrdered By: Lynnette Hare on 04-05-2023 CK [Catalytic activity/Vol] 43 U/L 30-223 [facility] Creatinine [Mass/volume] in Serum or PlasmaOrdered By: Gregory Rangel on 04-05-2023 Creatinine [Mass/Vol] 0.74 mg/dL 0.60-1.20 [facility] Eosinophils Auto (Bld) [#/Vo l]Ordered By: Gregory Rangel on 04-05-2023 Eosinophils (Bld) [#/Vol] 0.1 10*3/uL 0.0-0.45 [facility] Eosinophils/100 WBC Auto (Bl d)Ordered By: Gregory Rangel on 04-05-2023 Eosinophils/100 WBC (Bld) 1.1 % . [facility] Erythrocyte distribution wid th Auto (RBC) [Ratio]Ordered By: Gregory Rangel on 04-05-2023 Erythrocyte distribution width (RBC) [Ratio] 15.0 % 11.9-15.3 [facility] Globulin Calc (S) [Mass/Vol] Ordered By: Gregory Rangel on 04-05-2023 Globulin (S) [Mass/Vol] 2.5 g/dL [facility] Glucose [Mass/volume] in Ser um or PlasmaOrdered By: Gregory Rangel on 04-05-2023 Glucose [Mass/Vol] 109 mg/dL 70-100 [facility] Comment on above: ADA recommended refe rence rangeRandom Glucose Reference Range is dependent on time and content of last meal. Glucose of more than 200 mg/dL in a nonstressed, ambulatory subject supports the diagnosis of Diabetes Mellitus. Hematocrit Auto (Bld) [Volum e fraction]Ordered By: Gregory Rangel on 04-05-2023 Hematocrit (Bld) [Volume fraction] 35.7 % 34.0-46.4 [facility] Hemoglobin [Mass/volume] in BloodOrdered By: Gregory Rangel 04-05-2023 Hemoglobin (Bld) [Mass/Vol] 11.7 g/dL 11.8-15.4 [facility] INR in Platelet poor plasma by Coagulation assayOrdered By: Gregory Rangel on 04-05-2023 INR Coag (PPP) [Relative time] 1.0 {INR} [facility] Comment on above: INR Therapeutic Rang e [...] RBC Auto (Bld) [#/Vol] 6.6 10*3/uL 3.8-11.6 [facility] Lipase [Enzymatic activity/v olume] in Serum or PlasmaOrdered By: Gregory Rangel on 04-05-2023 Lipase [Catalytic activity/Vol] 13.0 U/L 11.0-82.0 [facility] Lymphocytes Auto (Bld) [#/Vo l]Ordered By: Gregory Rangel on 04-05-2023 Lymphocytes (Bld) [#/Vol] 2.6 10*3/uL 1.00-4.8 [facility] Lymphocytes/100 WBC Auto (Bl d)Ordered By: Gregory Rangel on 04-05-2023 Lymphocytes/100 WBC (Bld) 38.8 % . [facility] MCH Auto (RBC) [Entitic mass ]Ordered By: Gregory Rangel on 04-05-2023 MCH (RBC) [Entitic mass] 27.2 pg 24.7-34.3 [facility] MCHC Auto (RBC) [Mass/Vol]Or dered By: Gregory Rangel on 04-05-2023 MCHC (RBC) [Mass/Vol] 32.7 g/dL 32.0-35.0 [facility] MCV Auto (RBC) [Entitic vol] Ordered By: Gregory Rangel on 04-05-2023 MCV (RBC) [Entitic vol] 83.4 fL 80-100 [facility] Monocyte distribution width [Entitic volume] in Blood by AutomatedOrdered By: Gregory Rangel on 04-05-2023 Monocyte distribution width Auto (Bld) [Entitic vol] 19.16 % 0.00-20.00 [facility] Monocytes Auto (Bld) [#/Vol] Ordered By: Gregory Rangel on 04-05-2023 Monocytes (Bld) [#/Vol] 0.5 10*3/uL 0.0-0.8 [facility] Monocytes/100 WBC Auto (Bld) Ordered By: Gregory Rangel on 04-05-2023 Monocytes/100 WBC (Bld) 7.5 % . [facility] Natriuretic peptide B [Mass/ Vol]Ordered By: Gregory Rangel on 04-05-2023 Natriuretic peptide B (Bld) [Mass/Vol] 158.0 pg/mL 5-100 [facility] Neutrophils Auto (Bld) [#/Vo l]Ordered By: Gregory Rangel on 04-05-2023 Neutrophils (Bld) [#/Vol] 3.4 10*3/uL 1.8-7.7 [facility] Neutrophils/100 WBC Auto (Bl d)Ordered By: Gregory Rangel on 04-05-2023 Neutrophils/100 WBC (Bld) 51.9 % . [facility] No Panel InformationOrdered By: Gregory Rangel on 04-05-2023 Estimated GFR (CKD-EPI) > 60.0 mL/Min [facility] [facility] Creatinine Clearance (Chem 54.90 [facility] Nucleated erythrocytes [Pres ence] in Blood by Automated countOrdered By: Gregory Rangel on 04-05-2023 Nucleated RBC Auto Ql (Bld) 0.1 /100{WBC} 0-0.5 [facility] Platelet mean volume Auto (B ld) [Entitic vol]Ordered By: Gregory Rangel on 04-05-2023 Platelet mean volume (Bld) [Entitic vol] 6.6 fL 6.3-10.7 [facility] Platelets Auto (Bld) [#/Vol] Ordered By: Gregory Rangel on 04-05-2023 Platelets (Bld) [#/Vol] 312 10*3/uL 150-450 [facility] Potassium [Moles/volume] in Serum or PlasmaOrdered By: Gregory Rangel on 04-05-2023 Potassium [Moles/Vol] 3.5 mmol/L 3.5-5.1 [facility] Protein [Mass/volume] in Ser um or PlasmaOrdered By: Gregory Rangel on 04-05-2023 Protein [Mass/Vol] 7.0 g/dL 6.4-8.9 [facility] Prothrombin time (PT)Ordered By: Gregory Rangel on 04-05-2023 PT Coag (PPP) [Time] 11.9 s 9.0-12.9 [facility] Comment on above: A hematocrit value g reater than 55% may lead to inaccurate results in coagulation testing. Patients having hematocrit values >55% require a special collection tube for coagulation studies. Please contact the laboratory at [phone] for redraw instructions. RBC Auto (Bld) [#/Vol]Ordere d By: Gregory Rangel on 04-05-2023 RBC (Bld) [#/Vol] 4.28 10*6/uL 3.60-5.00 [facility] Serum or plasma albumin/glob ulin mass ratioOrdered By: Gregory Rangel on 04-05-2023 Albumin/Globulin [Mass ratio] 1.8 {ratio} [facility] Serum or plasma anion gap de terminationOrdered By: Gregory Rangel on 04-05-2023 Anion gap [Moles/Vol] 17.4 mmol/L 6.0-15.0 [facility] Serum or plasma non-glucuron idated bilirubin measurement (mass/volume)Ordered By: Gregory Rangel on 04-05-2023 Bilirubin.indirect [Mass/Vol] 0.4 mg/dL [facility] Sodium [Moles/volume] in Ser um or PlasmaOrdered By: Gregory Rangel on 04-05-2023 Sodium [Moles/Vol] 139 mmol/L 136-145 [facility] Troponin I.cardiac [Mass/vol ume] in Serum or Plasma by Detection limit <= 0.01 ng/Ordered By: Lynnette Hare on 04-05-2023 Troponin I.cardiac DL <= 0.01 ng/mL [Mass/Vol] 18.5 pg/mL 0.0-15.0 [facility] Urea nitrogen [Mass/volume] in Serum or PlasmaOrdered By: Gregory Rangel on 04-05-2023 Urea nitrogen [Mass/Vol] 20 mg/dL 7-25 [facility] WBC Auto (Bld) [#/Vol]Ordere d By: Gregory Rangel on 04-05-2023 WBC (Bld) [#/Vol] 6.6 10*3/uL 3.8-11.6 [facility] SIGMOIDOSCOPYon 03-16-2023 [facility] ALLIED HEALTHon 03-15-2023 [facility] MR Pelvis WO contraston - IMPRESSION: 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 Stage: T3c N+ MRF: Involved (tumor margin within 1 mm of MRF Sphincter involvement: No. Suspicious extra mesorectal lymph nodes: Yes EMVI: Yes. [employer]: HENRY Transcribe Date/Time: Mar 15 2023 1:15P Dictated by : ZAYNAB NDIAYE MD This examination was interpreted and the report reviewed and electronically signed by: ZAYNAB NDIAYE MD on Mar 15 2023 1:51PM [facility] * * *Final Report* * * DATE OF EXAM: Mar 15 2023 1:09PM [facility] 0754 - MRI RECTUM WO/W IVCON / PROCEDURE REASON: Rectal adenocarcinoma (HCC) * * * * Physician Interpretation * * * * MRI OF THE PELVIS WITHOUT AND WITH CONTRAST: RECTAL CANCER STAGING CLINICAL HISTORY: Rectal tumor histology: Rectal adenocarcinoma Prior chemotherapy or radiation: No Other: COMPARISON: CT abdomen 02/26/2023. TECHNIQUE: Magnet: Siemens Avanto 1.5T scanner. Multiplanar MRI with multiple sequences before and after contrast. Contrast: IV: 12 ml of Dotarem : ml of Rectal: 60 ml of Surgilube RESULT: PRIMARY TUMOR: MORPHOLOGY, LOCATION, AND CHARACTERISTICS: Distance to the anal verge: 3.7 cm (image 20, 3) Distance to the top of sphincter complex/anorectal junction: 1.6 cm (image 33, 15) Relationship to anterior peritoneal reflection: Below Craniocaudal length: 4.3 cm (image 33,) Tumor location: Mid to low Morphology: Annular, circumferential Mucinous: No mucin MR-T stage: T3c (tumor penetrates >5-15 mm beyond muscularis propria) Structures with possible invasion by T4b tumors: None Invasion of anal sphincter complex: Absent. Anal canal involvement: None. TUMOR DEPOSITS AND EXTRAMURAL VASCULAR INVASION (EMVI): Tumor deposits:(separate from metastatic lymph nodes): No. EMVI: Possible in the right mesorectal fat (image 9, 12)) MESORECTAL FASCIA (MRF): Shortest distance of extraluminal part of the tumor to MRF: Appears to abut anteriorly (image 34, 6) Tumor extension through the peritonealized portion of the rectum into peritoneal fat: No extension into peritoneal fat. Is there a separate tumor deposit, LN or EMVI threatening (?1mm and ?2 mm) or invading (< 1 mm) the MRF? Suspicious 0.7 cm lymph node within 1 mm of the MRF on the right (image 1, 12). Another 0.5 cm left mesorectal lymph node abutting the mesorectal fascia (image 11, 12). 0.8 cm left anterior mesorectal lymph node within 1 mm of the mesorectal fascia anteriorly. LYMPH NODES: Mesorectal/superior rectal lymph nodes and/or tumor deposits: N Stage: N2 Index nodes: 0.7 x 0.7 cm right mesorectal lymph node, (image 1, 12) 0.5 x 0.5 cm left mesorectal lymph node (image 10, 12) 0.9 x 0.8 cm left anterior mesorectal lymph node (image 21, 5) 1.0 x 0.9 cm superior rectal lymph node (image 78, 7) Suspicious extra mesorectal lymph nodes: None OTHER FINDINGS: Small nabothian cysts in the cervix. Grade 1 anterolisthesis of L5 on S1 [facility] Provider, [facility] - 03/15/2023 * * *Final Report* * * DATE OF EXAM: Mar 15 2023 1:09PM [facility] 0754 - MRI RECTUM WO/W IVCON / PROCEDURE REASON: Rectal adenocarcinoma (HCC) * * * * Physician Interpretation * * * * MRI OF THE PELVIS WITHOUT AND WITH CONTRAST: RECTAL CANCER STAGING CLINICAL HISTORY: Rectal tumor histology: Rectal adenocarcinoma Prior chemotherapy or radiation: No Other: COMPARISON: CT abdomen 02/26/2023. TECHNIQUE: Magnet: Siemens Avanto 1.5T scanner. Multiplanar MRI with multiple sequences before and after contrast. Contrast: IV: 12 ml of Dotarem : ml of Rectal: 60 ml of Surgilube RESULT: PRIMARY TUMOR: MORPHOLOGY, LOCATION, AND CHARACTERISTICS: Distance to the anal verge: 3.7 cm (image 20, 3) Distance to the top of sphincter complex/anorectal junction: 1.6 cm (image 33, 15) Relationship to anterior peritoneal reflection: Below Craniocaudal length: 4.3 cm (image 33,) Tumor location: Mid to low Morphology: Annular, circumferential Mucinous: No mucin MR-T stage: T3c (tumor penetrates >5-15 mm beyond muscularis propria) Structures with possible invasion by T4b tumors: None Invasion of anal sphincter complex: Absent. Anal canal involvement: None. TUMOR DEPOSITS AND EXTRAMURAL VASCULAR INVASION (EMVI): Tumor deposits:(separate from metastatic lymph nodes): No. EMVI: Possible in the right mesorectal fat (image 9, 12)) MESORECTAL FASCIA (MRF): Shortest distance of extraluminal part of the tumor to MRF: Appears to abut anteriorly (image 34, 6) Tumor extension through the peritonealized portion of the rectum into peritoneal fat: No extension into peritoneal fat. Is there a separate tumor deposit, LN or EMVI threatening (?1mm and ?2 mm) or invading (< 1 mm) the MRF? Suspicious 0.7 cm lymph node within 1 mm of the MRF on the right (image 1, 12). Another 0.5 cm left mesorectal lymph node abutting the mesorectal fascia (image 11, 12). 0.8 cm left anterior mesorectal lymph node within 1 mm of the mesorectal fascia anteriorly. LYMPH NODES: Mesorectal/superior rectal lymph nodes and/or tumor deposits: N Stage: N2 Index nodes: 0.7 x 0.7 cm right mesorectal lymph node, (image 1, 12) 0.5 x 0.5 cm left mesorectal lymph node (image 10, 12) 0.9 x 0.8 cm left anterior mesorectal lymph node (image 21, 5) 1.0 x 0.9 cm superior rectal lymph node (image 78, 7) Suspicious extra mesorectal lymph nodes: None OTHER FINDINGS: Small nabothian cysts in the cervix. Grade 1 anterolisthesis of L5 on S1 IMPRESSION IMPRESSION: 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 Stage: T3c N+ MRF: Involved (tumor margin within 1 mm of MRF Sphincter involvement: No. Suspicious extra mesorectal lymph nodes: Yes EMVI: Yes. [employer]: HENRY Transcribe Date/Time: Mar 15 2023 1:15P Dictated by : ZAYNAB NDIAYE MD This examination was interpreted and the report reviewed and electronically signed by: ZAYNAB NDIAYE MD on Mar 15 2023 1:51PM EST [facility] Radiology Study observation (narrative) [facility] MR Pelvis WO contrastOrdered By: [facility] Provider on 03-15-2023 [facility] MRI RECTUM WO/W IVCONon 09-0 MRI RECTUM WO/W IVCON Normal [facility] Creatinine [Mass/volume] in Serum or PlasmaOrdered By: Imhank Greene on 03-06-2023 Creatinine [Mass/Vol] 0.52 mg/dL 0.60-1.20 [facility] No Panel InformationOrdered By: Imad Solitarioad on 03-06-2023 Estimated GFR (CKD-EPI) > 60.0 mL/Min [facility] Creatinine Clearance (Chem 59.72 [facility] Serum or plasma carcinoembry onic antigen measurement (mass/volume)Ordered By: Imhank Greene on 03-06-2023 Carcinoembryonic Ag [Mass/Vol] 2.7 ng/mL 0.0-3.0 [facility] Urea nitrogen [Mass/volume] in Serum or PlasmaOrdered By: Imad Solitarioad on 03-06-2023 Urea nitrogen [Mass/Vol] 17 mg/dL 7-25 [facility] PAP ACOG PANEL 2: 30 to 65on 11-10-2022 . . Normal [facility] Comment on above: Performed By: #### [id number] #### [facility] [address] [address] [address] Ghulam Padilla Age Gdln ACOG Testing Comment Normal [facility] Comment on above: Result Comment: <21 or >65 or no age provided Performed By: #### [id number] #### [facility] [address] [address] [address] Ghulam Padilla DIAGNOSIS: Comment Normal [facility] Comment on above: Result Comment: NEGA TIVE FOR INTRAEPITHELIAL LESION OR MALIGNANCY. PREDOMINANCE OF COCCOBACILLI CONSISTENT WITH SHIFT IN VAGINAL JONATHAN IS PRESENT. Performed By: #### [id number] #### [facility] [address] [address] [address] Ghulam Padilla Methodology: Comment Normal [facility] Comment on above: Result Comment: This liquid based ThinPrep(R) pap test was screened with the use of an image guided system. Performed By: #### [id number] #### [facility] [address] [place] [address] Dr. Ghulam Padilla Note: Comment Normal [facility] Comment on above: Result Comment: The Pap smear is a screening test designed to aid in the detection of premalignant and malignant conditions of the uterine cervix. It is not a diagnostic procedure and should not be used as the sole means of detecting cervical cancer. Both false-positive and false-negative reports do occur. . Performed By: #### [id number] #### [facility] [address] [place] [address] Dr. Ghulam Padilla Performed by: Comment Normal [facility] Comment on above: Result Comment: Mitra Martinez, Fitting Room Attendant (ASCP) Performed By: #### [id number] #### [facility] [address] [place] [address] Dr. Ghulam Padilla Specimen adequacy: Comment Normal [facility] Comment on above: Result Comment: Sati sfactory for evaluation. Endocervical and/or squamous metaplastic cells (endocervical component) are present. Areas of partially obscuring inflammatory exudate are present. Performed By: #### [id number] #### [facility] [address] [place] [address] Dr. Ghulam Padilla XR DEXA BONE DENSITYon 11-07 XR DEXA BONE DENSITY EXAMINATION: XR DEX [...] by: ANI CAN Date: 2022-11-07 09:21 Normal [facility] Office Visit (Cardiology)on 10-26-2022 Follow-up visit Diagnoses/Problems Assessed Preoperative cardiovascular examination (V72.81) (Z01.810) Hypertension (401.9) (I10) Abnormal stress test (794.39) (R94.39) Overweight with body mass index (BMI) of 25 to 25.9 in adult (278.02,V85.21) (E66.3,Z68.25) Orders Overweight with body mass index (BMI) of 25 to 25.9 in adult Healthy Weight Tips; Status:Complete; Done: [id number] Some eating tips that can help you lose weight.; Status:Complete; Done: [id number] Preoperative cardiovascular examination IO EKG Electrocardiogram- 12 Lead; Status:Complete; Done: 26Oct2022 Patient Instructions Please bring all medicines, vitamins, [...] of Complete colonoscopy Managed By: Cem VELASQUEZ, Chiki Davis (Gastroenterology) History of Excision melanoma History [...] negative for complaint. Vitals Vital Signs Recorded: [id number] 02:49PMRecorded: [id number] 02:48PM Flgvktru551, LUE, Eabrkre851, RUE, Sitting Aubzqieaz18, LUE, Jbxzlpm31, RUE, Sitting Heart Rate76, Apical Height5 ft 4.5 in Fdkxba780 lb BMI Kksqjspzfa47.86 kg/m2 BSA Calculated1.76 Tobacco Useb) No PHQ-2 #1. Over the last 2 weeks have you felt down, depressed or hopeless? (If yes, answer PHQ-9 below)No PHQ-2 #2. Over the last 2 weeks have you felt little interest or pleasure in doing things? (If yes, (more content not included)... Normal [facility] Tobacco Screening.on 023 Adult depression screening assessment No [facility] [employer] y 250 DO Work Phone: Fall risk assessment a) No falls within the last year [facility] [employer] y 250 DO Work Phone: Tobacco use status CP b) No [facility] [employer] y 250 DO Work Phone: XR knee RT 4V*on 08-18-2022 XR knee RT 4V* [facility] [employer] Other XR knee RT 4V* [facility] [employer] Other XR knee RT 4V* [address] [place] [address] [employer] Other XR knee RT 4V* [place] [address] No rt [employer] Other XR knee RT 4V* XRay Report [employer] Other XR knee RT 4V* Signed [employer] Other XR knee RT 4V* Patient: Kathryn Gill MR#: [id number] [place] [employer] Other XR knee RT 4V* 89 [employer] Other XR knee RT 4V* : 1955 Acct:[id number] [employer] Other XR knee RT 4V* Age/Sex: 66 / F ADM Date: 08/18/22 [employer] Other XR knee RT 4V* Loc: [facility] Room: Type : REG CLI [employer] Other XR knee RT 4V* Attending Dr: Caroline Rangel II, MD [employer] Other XR knee RT 4V* Copies to: Caroline Rangel MD [employer] Other XR knee RT 4V* Ordering Provider: Raphael Rangel MD [employer] Other XR knee RT 4V* Date of Service: 08/18/22 [employer] Other XR knee RT 4V* XR/XR knee RT 4V*: Bilateral primary osteoarthritis of knee [employer] Other XR knee RT 4V* XR knee RT 4V* 023 8:00 AM [employer] Other XR knee RT 4V* SIGNS AND SYMPTOMS: Right chronic lateral knee pain [employer] Other XR knee RT 4V* PROTOCOL: Frontal, lateral, and oblique radiographs of the right knee [employer] Other XR knee RT 4V* COMPARISON: 02/11/2022 [employer] Other XR knee RT 4V* FINDINGS: [employer] Other XR knee RT 4V* There is severe narr owing of the medial weightbearing joint space with an osteochondral defect [employer] Other XR knee RT 4V* present. This appear s to measure at least 11 mm in AP dimension. Degenerative changes are worse when [employer] Other XR knee RT 4V* compared to the prio r exam. No definite radiopaque foreign body. There is a moderate joint effusion. [employer] Other XR knee RT 4V* No soft tissue swell ing. There is mild patellofemoral joint space loss. [employer] Other XR knee RT 4V* X R/XR knee RT 4V* [employer] Other XR knee RT 4V* IMPRESSION: [employer] Other XR knee RT 4V* compared to the prio r exam. [employer] Other XR knee RT 4V* No definite radiopaq ue foreign body. [employer] Other XR knee RT 4V* Impression dictated by: Jax Montesinos M.D.08/18/2022 10:52 AM [employer] Other XR knee RT 4V* Dictation Location: [place] [address] [employer] Other XR knee RT 4V* Transcribed By: NEWTON 08/18/22 1052 [employer] Other XR knee RT 4V* Dictated By: Jax Montesinos II, MD 08/18/22 1049 [employer] Other XR knee RT 4V* Signed By: [employer] Other XR knee RT 4V* 08/18/22 1052 [employer] Other Albumin [Mass/volume] in Ser um or PlasmaOrdered By: Charles Bazzi on 05-25-2022 Albumin [Mass/Vol] 3.6 g/dL 3.2-5.5 [facility] Basophils Auto (Bld) [#/Vol] Ordered By: Charles Bazzi on 05-25-2022 Basophils (Bld) [#/Vol] 0.1 10*3/uL 0.0-0.2 [facility] Basophils/100 WBC Auto (Bld) Ordered By: Charles Bazzi on 05-25-2022 Basophils/100 WBC (Bld) 0.7 % . [facility] Cholesterol [Mass/volume] in Serum or PlasmaOrdered By: Charles Bazzi on 05-25-2022 Cholesterol [Mass/Vol] 181 mg/dL 140-200 [facility] Comment on above: Chol less than 200 m g/dl low riskChol 201-239 mg/dl borderline riskChol 240 mg/dl and greater high risk Cholesterol in LDL Calc [Mas s/Vol]Ordered By: Charles Bazzi on 05-25-2022 Cholesterol in LDL [Mass/Vol] 97 mg/dL 0-100 [facility] Comment on above: LDL ATP III CLASSIFI CATIONLDL less than 100 mg/dL OptimalLDL 100-129 mg/dL Near or above optimalLDL 130-159 mg/dL Borderline highLDL 160-189 mg/dL HighLDL greater than 189 mg/dL Very high Cholesterol in VLDL Calc [Ma ss/Vol]Ordered By: Charles Bazzi on 05-25-2022 Cholesterol in VLDL [Mass/Vol] 13 mg/dL [facility] Creatinine and Glomerular fi ltration rate.predicted panel (S/P/Bld)Ordered By: Charles Bazzi on 05-25-2022 Creatinine [Mass/Vol] 0.69 mg/dL 0.44-1.03 [facility] Eosinophils Auto (Bld) [#/Vo l]Ordered By: Charles Bazzi on 05-25-2022 Eosinophils (Bld) [#/Vol] 0.2 10*3/uL 0.0-0.45 [facility] Eosinophils/100 WBC Auto (Bl d)Ordered By: Charles Bazzi on 05-25-2022 Eosinophils/100 WBC (Bld) 2.3 % . [facility] Erythrocyte distribution wid th Auto (RBC) [Ratio]Ordered By: Charles Bazzi on 05-25-2022 Erythrocyte distribution width (RBC) [Ratio] 15.5 % 11.9-15.3 [facility] Estimated glomerular filtrat ion rate (GFR) non- AmericanOrdered By: Charles Bazzi on 05-25-2022 GFR/1.73 sq M.predicted among non-blacks MDRD (S/P/Bld) [Vol rate/Area] > 60 mL/Min [facility] Globulin Calc (S) [Mass/Vol] Ordered By: Charles Bazzi on 05-25-2022 Globulin (S) [Mass/Vol] 2.7 g/dL [facility] Hematocrit Auto (Bld) [Volum e fraction]Ordered By: Charles Bazzi on 05-25-2022 Hematocrit (Bld) [Volume fraction] 37.0 % 34.0-46.4 [facility] Hemoglobin [Mass/volume] in BloodOrdered By: Charles Bazzi on 05-25-2022 Hemoglobin (Bld) [Mass/Vol] 12.0 g/dL 11.8-15.4 [facility] - Hematology and Cell countsOrdered By: Charles Bazzi on 05-25-2022 Nucleated RBC/100 WBC (Bld) [Ratio] 0.0 % 0-0.5 [facility] Leukocytes [#/volume] in Blo od by Automated countOrdered By: Charles Bazzi on 05-25-2022 WBC (Bld) [#/Vol] 8.2 10*3/uL 4.5-11.0 [facility] Lymphocytes Auto (Bld) [#/Vo l]Ordered By: Charles Bazzi on 05-25-2022 Lymphocytes (Bld) [#/Vol] 2.9 10*3/uL 1.00-4.8 [facility] Lymphocytes/100 WBC Auto (Bl d)Ordered By: Charles Bazzi on 05-25-2022 Lymphocytes/100 WBC (Bld) 35.1 % . [facility] MCH Auto (RBC) [Entitic mass ]Ordered By: Charles Bazzi on 05-25-2022 MCH (RBC) [Entitic mass] 29.1 pg 24.7-34.3 [facility] MCHC Auto (RBC) [Mass/Vol]Or dered By: Charles Bazzi on 05-25-2022 MCHC (RBC) [Mass/Vol] 32.4 g/dL 32.0-35.0 [facility] MCV Auto (RBC) [Entitic vol] Ordered By: Charles Bazzi on 05-25-2022 MCV (RBC) [Entitic vol] 89.9 fL 80-100 [facility] Monocytes Auto (Bld) [#/Vol] Ordered By: Charles Bazzi on 05-25-2022 Monocytes (Bld) [#/Vol] 0.6 10*3/uL 0.0-0.8 [facility] Monocytes/100 WBC Auto (Bld) Ordered By: Charles Bazzi on 05-25-2022 Monocytes/100 WBC (Bld) 7.7 % . [facility] Neutrophils Auto (Bld) [#/Vo l]Ordered By: Charles Bazzi on 05-25-2022 Neutrophils (Bld) [#/Vol] 4.4 10*3/uL 1.8-7.7 [facility] Neutrophils/100 WBC Auto (Bl d)Ordered By: Charles Bazzi on 05-25-2022 Neutrophils/100 WBC (Bld) 54.2 % . [facility] No Panel InformationOrdered By: Charles Bazzi on 05-25-2022 Estimated GFR () > 60 mL/Min [facility] Comment on above: GFR estimated refere nce range: According to KDOQI guidelines, <60 ml/min/1.73m2 is sufficient to diagnose a patient with chronic kidney disease. Pharmacy Creatinine Clearance (Chem N/A [facility] Platelet mean volume Auto (B ld) [Entitic vol]Ordered By: Charles Bazzi on 05-25-2022 Platelet mean volume (Bld) [Entitic vol] 7.2 fL 6.3-10.7 [facility] Platelets Auto (Bld) [#/Vol] Ordered By: Charles Bazzi on 05-25-2022 Platelets (Bld) [#/Vol] 441 10*3/uL 150-450 [facility] Protein [Mass/volume] in Ser um or PlasmaOrdered By: Charles Bazzi on 05-25-2022 Protein [Mass/Vol] 6.3 g/dL 6.1-7.9 [facility] RBC Auto (Bld) [#/Vol]Ordere d By: Charles Bazzi on 05-25-2022 RBC (Bld) [#/Vol] 4.12 10*6/uL 3.60-5.00 [facility] Serum or plasma alanine ruth otransferase measurement without P-5'-P (enzymatic activiOrdered By: Charles Bazzi on 05-25-2022 ALT No additional P-5'-P [Catalytic activity/Vol] 19 U/L 10-60 [facility] Serum or plasma albumin/glob ulin mass ratioOrdered By: Charles Bazzi on 05-25-2022 Albumin/Globulin [Mass ratio] 1.3 {ratio} [facility] Serum or plasma alkaline argelia sphatase measurement (enzymatic activity/volume)Ordered By: Charles Bazzi on 05-25-2022 ALP [Catalytic activity/Vol] 68 U/L 32-92 [facility] Serum or plasma anion gap de terminationOrdered By: Charles Bazzi on 05-25-2022 Anion gap [Moles/Vol] 7.6 mmol/L 6.0-15.0 [facility] Serum or plasma aspartate am inotransferase measurement (enzymatic activity/volume)Ordered By: Charles Bazzi on 05-25-2022 AST [Catalytic activity/Vol] 15 U/L 10-42 [facility] Serum or plasma calcium yogi urement (mass/volume)Ordered By: Charles Bazzi on 05-25-2022 Calcium [Mass/Vol] 9.0 mg/dL 8.2-10.2 [facility] Serum or plasma chloride radha surement (moles/volume)Ordered By: Charles Bazzi on 05-25-2022 Chloride [Moles/Vol] 106 mmol/L 95-114 [facility] Serum or plasma glucose yogi urement (mass/volume)Ordered By: Charles Bazzi on 05-25-2022 Glucose [Mass/Vol] 91 mg/dL 70-100 [facility] Comment on above: ADA recommended refe rence rangeRandom Glucose Reference Range is dependent on time and content of last meal. Glucose of more than 200 mg/dL in a nonstressed, ambulatory subject supports the diagnosis of Diabetes Mellitus. Serum or plasma high density lipoprotein (HDL) cholesterol measurementOrdered By: Charles Bazzi on 05-25-2022 Cholesterol in HDL [Mass/Vol] 70 mg/dL 35-85 [facility] Comment on above: HDL CHOL ATP-III CLA SSIFICATION Cardiovascular RiskHDL > or equal to 60 mg/dL LOWHDL < 40 mg/dL HIGH Serum or plasma potassium me asurement (moles/volume)Ordered By: Charles Bazzi on 05-25-2022 Potassium [Moles/Vol] 4.2 mmol/L 3.5-5.1 [facility] Serum or plasma sodium measu rement (moles/volume)Ordered By: Charles Bazzi on 05-25-2022 Sodium [Moles/Vol] 136 mmol/L 136-146 [facility] Serum or plasma total biliru bin measurement (mass/volume)Ordered By: Charles Bazzi on 05-25-2022 Bilirubin [Mass/Vol] 0.4 mg/dL 0.3-1.2 [facility] Serum or plasma total carbon dioxide measurement (moles/volume)Ordered By: Charles Bazzi on 05-25-2022 CO2 [Moles/Vol] 26.6 mmol/L 22.0-30.0 [facility] Serum or plasma total choles terol/high density lipoprotein (HDL) cholesterol mass ratOrdered By: Charles Bazzi on 05-25-2022 Cholesterol.total/Chol esterol in HDL [Mass ratio] 2.6 {ratio} <5.0 [facility] Serum or plasma urea nitroge n measurement (mass/volume)Ordered By: Charles Bazzi on 05-25-2022 Urea nitrogen [Mass/Vol] 20 mg/dL 9-23 [facility] TSH DL <= 0.005 mIU/L QnOrde red By: Charles Bazzi on 05-25-2022 TSH Qn 2.62 m[IU]/L 0.45-5.33 [facility] Triglyceride [Mass/volume] i n Serum or PlasmaOrdered By: Charles Bazzi on 05-25-2022 Triglyceride [Mass/Vol] 68 mg/dL 35-149 [facility] Comment on above: TRIG ATP III CLASSIF ICATIONTRIG less than 150 mg/dL NormalTRIG 150-199 mg/dL Borderline highTRIG 200-500 mg/dL High TRIG greater than 500 mg/dL Very highStandard traceable to the [facility] for Disease Conrtrol and Prevention (CDC) test method. Vital Signs Date Time Vital Sign Value Performing Clinician Facility 06-11-2024 13: Body height 162.56 cm Charles Bazzi DO Work Phone: [facility] 06-11-2024 13:13-0500 Body mass index (BMI) [Ratio] 26.6 kg/m2 Charles Kuns DO Work Phone: [facility] 06-11-2024 13:13-0500 Body weight 70.3 kg Charles Kuns DO Work Phone: [facility] 06-11-2024 13:13-0500 Diastolic blood pressure 80 mm[Hg] Charles Kuns DO Work Phone: [facility] 06-11-2024 13:13-0500 Heart rate 67 /min Charles Kuns DO Work Phone: [facility] 06-11-2024 13:13-0500 Respiratory rate 16 /min Charles Kuns DO Work Phone: [facility] 06-11-2024 13:13-0500 SaO2% (BldA) [Mass fraction] 98 % Charles Kuns DO Work Phone: [facility] 06-11-2024 13:13-0500 Systolic blood pressure 120 mm[Hg] Charles Kuns DO Work Phone: [facility] 05-31-2024 14:50-0500 Diastolic blood pressure 72 mm[Hg] Charles Kuns DO Work Phone: [facility] 05-31-2024 14:50-0500 Heart rate 65 /min Charles Kuns DO Work Phone: [facility] 05-31-2024 14:50-0500 Respiratory rate 16 /min Charles Kuns DO Work Phone: [facility] 05-31-2024 14:50-0500 SaO2% (BldA) [Mass fraction] 99 % Charles Kuns DO Work Phone: [facility] 05-31-2024 14:50-0500 Systolic blood pressure 128 mm[Hg] Charles Kuns DO Work Phone: [facility] 05-31-2024 14:05-0500 Body temperature 97.3 [degF] Charles Kuns DO Work Phone: [facility] 05-31-2024 14:05-0500 Inhaled oxygen flow rate 8 L/min Charles Kuns DO Work Phone: [facility] 05-31-2024 11:31-0500 Body height 162.56 cm Charles Kuns DO Work Phone: [facility] 05-31-2024 11:31-0500 Body weight 67.13 kg Charles Kuns DO Work Phone: [facility] 05-23-2024 10:55-0500 Diastolic blood pressure 69 mm[Hg] Charles Kuns DO Work Phone: [facility] 05-23-2024 10:55-0500 Heart rate 64 /min Charles Kuns DO Work Phone: [facility] 05-23-2024 10:55-0500 Respiratory rate 16 /min Charles Kuns DO Work Phone: [facility] 05-23-2024 10:55-0500 SaO2% (BldA) [Mass fraction] 98 % Charles Kuns DO Work Phone: [facility] 05-23-2024 10:55-0500 Systolic blood pressure 140 mm[Hg] Charles Kuns DO Work Phone: [facility] 05-23-2024 08:25-0500 Body height 165.1 cm Charles Kuns DO Work Phone: [facility] 05-23-2024 08:25-0500 Body temperature 98.1 [degF] Charles Kuns DO Work Phone: [facility] 05-23-2024 08:25-0500 Body weight 69.6 kg Charles Kuns DO Work Phone: [facility] 05-22-2024 14:48-0500 Diastolic blood pressure 60 mm[Hg] Charles Kuns DO Work Phone: [facility] 05-22-2024 14:48-0500 Heart rate 80 /min Charles Kuns DO Work Phone: [facility] 05-22-2024 14:48-0500 Respiratory rate 18 /min Charles Kuns DO Work Phone: [facility] 05-22-2024 14:48-0500 SaO2% (BldA) [Mass fraction] 98 % Charles Kuns DO Work Phone: [facility] 05-22-2024 14:48-0500 Systolic blood pressure 122 mm[Hg] Charles Kuns DO Work Phone: [facility] 05-22-2024 11:56-0500 Body height 165.1 cm Charles Kuns DO Work Phone: [facility] 05-22-2024 11:56-0500 Body temperature 97.9 [degF] Charles Kuns DO Work Phone: [facility] 05-22-2024 11:56-0500 Body weight 68.95 kg Charles Kuns DO Work Phone: [facility] 05-08-2024 13:54-0400 Body height 162.6 cm Tapan Corona MD Work Phone: [facility] 05-08-2024 13:54-0400 Body mass index (BMI) [Ratio] 26.27 kg/m2 Tapan Corona MD Work Phone: [facility] 05-08-2024 13:54-0400 Body temperature 99 [degF] Tapan Corona MD Work Phone: [facility] 05-08-2024 13:54-0400 Body weight 69.45 kg Tapan Corona MD Work Phone: [facility] 05-08-2024 13:54-0400 Diastolic blood pressure 71 mm[Hg] Tapan Corona MD Work Phone: [facility] 05-08-2024 13:54-0400 Heart rate 70 /min Tapan Corona MD Work Phone: [facility] 05-08-2024 13:54-0400 Respiratory rate 18 /min Tapan Corona MD Work Phone: [facility] 05-08-2024 13:54-0400 SaO2% (BldA) [Mass fraction] 100 % Tapan Corona MD Work Phone: [facility] 05-08-2024 13:54-0400 Systolic blood pressure 132 mm[Hg] Tapan Corona MD Work Phone: [facility] 04-10-2024 09:56-0400 Body mass index (BMI) [Ratio] 26.02 kg/m2 JOSE MARIA Hudson MD Work Phone: [facility] 04-10-2024 09:56-0400 Body temperature 98.01 [degF] JOSE MARIA Hudson MD Work Phone: [facility] 04-10-2024 09:56-0400 Body weight 68.8 kg JOSE MARIA Hudson MD Work Phone: [facility] 04-10-2024 09:56-0400 Diastolic blood pressure 72 mm[Hg] JOSE MARIA Hudson MD Work Phone: [facility] 04-10-2024 09:56-0400 Heart rate 62 /min JOSE MARIA Hudson MD Work Phone: [facility] 04-10-2024 09:56-0400 Respiratory rate 16 /min JOSE MARIA Hudson MD Work Phone: [facility] 04-10-2024 09:56-0400 SaO2% (BldA) [Mass fraction] 99 % JOSE MARIA Hudson MD Work Phone: [facility] 04-10-2024 09:56-0400 Systolic blood pressure 140 mm[Hg] JOSE MARIA Hudson MD Work Phone: [facility] 02-06-2024 11:15-0400 Body height 162.6 cm Tapan Corona MD Work Phone: [facility] 02-06-2024 11:15-0400 Body mass index (BMI) [Ratio] 25.61 kg/m2 Tapan Corona MD Work Phone: [facility] 02-06-2024 11:15-0400 Body temperature 97.7 [degF] Tapan Corona MD Work Phone: [facility] 02-06-2024 11:15-0400 Body weight 67.7 kg Tapan Corona MD Work Phone: [facility] 02-06-2024 11:15-0400 Diastolic blood pressure 87 mm[Hg] Tapan Corona MD Work Phone: [facility] 02-06-2024 11:15-0400 Heart rate 76 /min Tapan Corona MD Work Phone: [facility] 02-06-2024 11:15-0400 Respiratory rate 16 /min Tapan Corona MD Work Phone: [facility] 02-06-2024 11:15-0400 SaO2% (BldA) [Mass fraction] 98 % Tapan Corona MD Work Phone: [facility] 02-06-2024 11:15-0400 Systolic blood pressure 150 mm[Hg] Tapan Corona MD Work Phone: [facility] 01-09-2024 14:09-0400 Body mass index (BMI) [Ratio] 24.2 kg/m2 Laisha Singer MD Work Phone: [facility] 01-09-2024 14:09-0400 Body temperature 97.81 [degF] Laisha Singer MD Work Phone: [facility] 01-09-2024 14:09-0400 Body weight 63.96 kg Laisha Singer MD Work Phone: [facility] 01-09-2024 14:09-0400 Diastolic blood pressure 79 mm[Hg] Laisha Singer MD Work Phone: [facility] 01-09-2024 14:09-0400 Heart rate 64 /min Laisha Singer MD Work Phone: [facility] 01-09-2024 14:09-0400 SaO2% (BldA) [Mass fraction] 99 % Laisha Singer MD Work Phone: [facility] 01-09-2024 14:09-0400 Systolic blood pressure 131 mm[Hg] Laisha Singer MD Work Phone: [facility] 11-24-2023 15:29-0400 Body height 162.6 cm Brandie Salmeron DECONTAMINATOR.[employer]SUMER [employer]IST Work Phone: [facility] 11-24-2023 15:29-0400 Body mass index (BMI) [Ratio] 24.2 kg/m2 Brandie Salmeron DECONTAMINATOR.CONSUMER [employer]LECT[employer] RETAIL SPECIALIST Work Phone: [facility] 11-24-2023 15:29-0400 Body temperature 97.3 [degF] Brandie Salmeron DECONTAMINATOR.CONSUMER ELECT[employer]IC RETAIL SPECIALIST Work Phone: [facility] 11-24-2023 15:29-0400 Body weight 63.96 kg Brandie Salmeron DECONTAMINATOR.CONSUMER [employer]LECT[employer] RETAIL SPECIALIST Work Phone: [facility] 11-24-2023 15:29-0400 Diastolic blood pressure 56 mm[Hg] Brandie Salmeron DECONTAMINATOR.CONSUMER ELECTRONIC RETAIL SPECIALIST Work Phone: [facility] 11-24-2023 15:29-0400 Heart rate 57 /min Brandie Salmeron DECONTAMINATOR.CONSUMER ELECT[employer]IC RETAIL SPECIALIST Work Phone: [facility] 11-24-2023 15:29-0400 Systolic blood pressure 122 mm[Hg] Brandie Samleron DECONTAMINATOR.CONSUMER ELECT[employer]IC RETAIL SPECIALIST Work Phone: [facility] 10-28-2023 13:26-0400 Body temperature 97.5 [degF] DO Charles Kuns Work Phone: [facility] 10-28-2023 13:26-0400 Diastolic blood pressure 69 mm[Hg] DO Charles Kuns Work Phone: [facility] 10-28-2023 13:26-0400 Heart rate 77 /min DO Charles Kuns Work Phone: [facility] 10-28-2023 13:26-0400 Respiratory rate 16 /min DO Charles Kuns Work Phone: [facility] 10-28-2023 13:26-0400 SaO2% (BldA) [Mass fraction] 100 % DO Charles Kuns Work Phone: [facility] 10-28-2023 13:26-0400 Systolic blood pressure 122 mm[Hg] DO Charles Kuns Work Phone: [facility] 10-28-2023 05:55-0400 Body weight 67.6 kg DO Charles Kuns Work Phone: [facility] 10-26-2023 15:42-0400 Body height 162.56 cm DO Charles Kuns Work Phone: [facility] 10-26-2023 03:21-0400 Diastolic blood pressure 64 mm[Hg] DO Charles Kuns Work Phone: [facility] 10-26-2023 03:21-0400 Heart rate 75 /min DO Charles Kuns Work Phone: [facility] 10-26-2023 03:21-0400 Respiratory rate 15 /min DO Charles Kuns Work Phone: [facility] 10-26-2023 03:21-0400 SaO2% (BldA) [Mass fraction] 96 % DO Charles Kuns Work Phone: [facility] 10-26-2023 03:21-0400 Systolic blood pressure 119 mm[Hg] DO Charles Kuns Work Phone: [facility] 10-26-2023 01:53-0400 Body temperature 98 [degF] DO Charles Kuns Work Phone: [facility] 10-25-2023 20:18-0400 Body height 162.56 cm DO Charles Kuns Work Phone: [facility] 10-25-2023 20:18-0400 Body weight 66.9 kg DO Charles Kuns Work Phone: [facility] 10-10-2023 10:42-0400 Body height 162.6 cm Tapan Corona MD Work Phone: [facility] 10-10-2023 10:42-0400 Body temperature 98.01 [degF] Tapan Corona MD Work Phone: [facility] 10-10-2023 10:42-0400 Body weight 63.7 kg Tapan Corona MD Work Phone: [facility] 10-10-2023 10:42-0400 Diastolic blood pressure 66 mm[Hg] Tapan Corona MD Work Phone: [facility] 10-10-2023 10:42-0400 Heart rate 92 /min Tapan Corona MD Work Phone: [facility] 10-10-2023 10:42-0400 Respiratory rate 16 /min Tapan Corona MD Work Phone: [facility] 10-10-2023 10:42-0400 SaO2% (BldA) [Mass fraction] 100 % Tapan Corona MD Work Phone: [facility] 10-10-2023 10:42-0400 Systolic blood pressure 122 mm[Hg] Tapan Corona MD Work Phone: [facility] 10-01-2023 12:00-0400 Body temperature 98.1 [degF] DO Charles Kuns Work Phone: [facility] 10-01-2023 12:00-0400 Diastolic blood pressure 68 mm[Hg] DO Charles Kuns Work Phone: [facility] 10-01-2023 12:00-0400 Heart rate 63 /min DO Charles Kuns Work Phone: [facility] 10-01-2023 12:00-0400 Respiratory rate 16 /min DO Charles Kuns Work Phone: [facility] 10-01-2023 12:00-0400 SaO2% (BldA) [Mass fraction] 98 % DO Charles Kuns Work Phone: [facility] 10-01-2023 12:00-0400 Systolic blood pressure 117 mm[Hg] DO Charles Kuns Work Phone: [facility] 10-01-2023 06:00-0400 Body weight 66 kg DO Charles Kuns Work Phone: [facility] 09-30-2023 04:29-0400 Body height 162.56 cm DO Charles Kuns Work Phone: [facility] 09-30-2023 04:08-0400 Body temperature 98.1 [degF] DO Charles Kuns Work Phone: [facility] 09-30-2023 04:08-0400 Diastolic blood pressure 59 mm[Hg] DO Charles Kuns Work Phone: [facility] 09-30-2023 04:08-0400 Heart rate 68 /min DO Charles Kuns Work Phone: [facility] 09-30-2023 04:08-0400 Respiratory rate 16 /min DO Charles Kuns Work Phone: [facility] 09-30-2023 04:08-0400 SaO2% (BldA) [Mass fraction] 96 % DO Charles Kuns Work Phone: [facility] 09-30-2023 04:08-0400 Systolic blood pressure 123 mm[Hg] DO Charles Kuns Work Phone: [facility] 09-30-2023 00:58-0400 Body height 162.56 cm DO Charles Kuns Work Phone: [facility] 09-30-2023 00:58-0400 Body weight 62.59 kg DO Charles Kuns Work Phone: [facility] 09-22-2023 14:30-0400 Body height 162.6 cm Brandie Salmeron DECONTAMINATOR.CONSUMER [employer]IST Work Phone: [facility] 09-22-2023 14:30-0400 Body temperature 97.3 [degF] Brandie Salmeron DECONTAMINATOR.CONSUMER ELECT[employer]IC RETAIL SPECIALIST Work Phone: [facility] 09-22-2023 14:30-0400 Body weight 62.6 kg Brandie Salmeron DECONTAMINATOR.CONSUMER ELECT[employer]IC RETAIL SPECIALIST Work Phone: [facility] 09-22-2023 14:30-0400 Diastolic blood pressure 68 mm[Hg] Brandie Salmeron DECONTAMINATOR.CONSUMER ELECTRONIC RETAIL SPECIALIST Work Phone: [facility] 09-22-2023 14:30-0400 Heart rate 62 /min Brandie Salmeron DECONTAMINATOR.CONSUMER ELECTRONIC RETAIL SPECIALIST Work Phone: [facility] 09-22-2023 14:30-0400 SaO2% (BldA) [Mass fraction] 100 % Brandie Salmeron DECONTAMINATORLupisCONSUMER ELECTRONIC RETAIL SPECIALIST Work Phone: [facility] 09-22-2023 14:30-0400 Systolic blood pressure 125 mm[Hg] Brandie Salmeron DECONTAMINATOR.CONSUMER ELECTRONIC RETAIL SPECIALIST Work Phone: [facility] 08-11-2023 12:03-0500 Body height 165.1 cm Pac 2 Work Phone: [facility] 08-11-2023 12:03-0500 Body temperature 97 [degF] Pacc 2 Work Phone: [facility] 08-11-2023 12:03-0500 Body weight 63.5 kg Pacc 2 Work Phone: [facility] 08-11-2023 12:03-0500 Diastolic blood pressure 75 mm[Hg] Pacc 2 Work Phone: [facility] 08-11-2023 12:03-0500 Heart rate 71 /min Pacc 2 Work Phone: [facility] 08-11-2023 12:03-0500 Respiratory rate 18 /min Pacc 2 Work Phone: [facility] 08-11-2023 12:03-0500 SaO2% (BldA) [Mass fraction] 99 % Pacc 2 Work Phone: [facility] 08-11-2023 12:03-0500 Systolic blood pressure 105 mm[Hg] Pacc 2 Work Phone: [facility] 07-25-2023 12:42-0500 Body height 165.1 cm Marcos Rios MD Work Phone: [facility] 07-25-2023 12:42-0500 Body mass index (BMI) [Ratio] 24.3 kg/m2 Marcos Rios MD Work Phone: [facility] 07-25-2023 12:42-0500 Body weight 66.22 kg Marcos Rios MD Work Phone: [facility] 07-25-2023 12:42-0500 Diastolic blood pressure 88 mm[Hg] Marcos Rios MD Work Phone: [facility] 07-25-2023 12:42-0500 Heart rate 66 /min Marcos Rios MD Work Phone: [facility] 07-25-2023 12:42-0500 Systolic blood pressure 138 mm[Hg] Marcos Rios MD Work Phone: [facility] 06-26-2023 15:25-0500 Diastolic blood pressure 58 mm[Hg] DO Charles Kuns Work Phone: [facility] 06-26-2023 15:25-0500 Heart rate 58 /min DO Charles Kuns Work Phone: [facility] 06-26-2023 15:25-0500 Respiratory rate 16 /min DO Charles Kuns Work Phone: [facility] 06-26-2023 15:25-0500 SaO2% (BldA) [Mass fraction] 97 % DO Charles Kuns Work Phone: [facility] 06-26-2023 15:25-0500 Systolic blood pressure 114 mm[Hg] DO Charles Kuns Work Phone: [facility] 06-26-2023 13:18-0500 Body height 162.56 cm DO Charles Kuns Work Phone: [facility] 06-26-2023 13:18-0500 Body mass index (BMI) [Ratio] 23.6 kg/m2 DO Charles Kuns Work Phone: [facility] 06-26-2023 13:18-0500 Body weight 62.59 kg DO Charles Kuns Work Phone: [facility] 06-26-2023 10:43-0500 Body temperature 98 [degF] DO Charles Kuns Work Phone: [facility] 06-14-2023 14:51-0500 Body height 162.6 cm Tapan Corona MD Work Phone: [facility] 06-14-2023 14:51-0500 Body temperature 98.01 [degF] Tapan Corona MD Work Phone: [facility] 06-14-2023 14:51-0500 Body weight 63.41 kg Tapan Corona MD Work Phone: [facility] 06-14-2023 14:51-0500 Diastolic blood pressure 56 mm[Hg] Tapan Corona MD Work Phone: [facility] 06-14-2023 14:51-0500 Heart rate 77 /min Tapan Corona MD Work Phone: [facility] 06-14-2023 14:51-0500 Respiratory rate 16 /min Tapan Corona MD Work Phone: [facility] 06-14-2023 14:51-0500 SaO2% (BldA) [Mass fraction] 94 % Tapan Corona MD Work Phone: [facility] 06-14-2023 14:51-0500 Systolic blood pressure 111 mm[Hg] Tapan Corona MD Work Phone: [facility] 06-08-2023 13:30-0500 Diastolic blood pressure 63 mm[Hg] Laisha Singer MD Work Phone: [facility] 06-08-2023 13:30-0500 Heart rate 73 /min Laisha Singer MD Work Phone: [facility] 06-08-2023 13:30-0500 Respiratory rate 17 /min Laisha Singer MD Work Phone: [facility] 06-08-2023 13:30-0500 SaO2% (BldA) [Mass fraction] 100 % Laisha Singer MD Work Phone: [facility] 06-08-2023 13:30-0500 Systolic blood pressure 111 mm[Hg] Laisha Singer MD Work Phone: [facility] 06-08-2023 13:11-0500 Body temperature 97.2 [degF] Laisha Singer MD Work Phone: [facility] 06-08-2023 12:40-0500 Body weight 62.6 kg Laisha Singer MD Work Phone: [facility] 05-29-2023 10:20-0500 Body temperature 96.69 [degF] JOSE MARIA Hudson MD Work Phone: [facility] 05-29-2023 10:20-0500 Body weight 62.6 kg JOSE MARIA Hudson MD Work Phone: [facility] 05-29-2023 10:20-0500 Diastolic blood pressure 78 mm[Hg] JOSE MARIA Hudson MD Work Phone: [facility] 05-29-2023 10:20-0500 Heart rate 64 /min JOSE MARIA Hudson MD Work Phone: [facility] 05-29-2023 10:20-0500 Respiratory rate 18 /min JOSE MARIA Hudson MD Work Phone: [facility] 05-29-2023 10:20-0500 SaO2% (BldA) [Mass fraction] 98 % JOSE MARIA Hudson MD Work Phone: [facility] 05-29-2023 10:20-0500 Systolic blood pressure 134 mm[Hg] JOSE MARIA Hudson MD Work Phone: [facility] 05-08-2023 10:59-0400 Body temperature 96.91 [degF] JOSE MARIA Hudson MD Work Phone: [facility] 05-08-2023 10:59-0400 Body weight 61.69 kg JOSE MARIA Hudson MD Work Phone: [facility] 05-08-2023 10:59-0400 Diastolic blood pressure 72 mm[Hg] JOSE MARIA Hudson MD Work Phone: [facility] 05-08-2023 10:59-0400 Heart rate 74 /min JOSE MARIA Hudson MD Work Phone: [facility] 05-08-2023 10:59-0400 Respiratory rate 16 /min JOSE MARIA Hudson MD Work Phone: [facility] 05-08-2023 10:59-0400 SaO2% (BldA) [Mass fraction] 95 % JOSE MARIA Hudson MD Work Phone: [facility] 05-08-2023 10:59-0400 Systolic blood pressure 116 mm[Hg] JOSE MARIA Hudson MD Work Phone: [facility] 05-01-2023 11:05-0400 Body temperature 96.69 [degF] JOSE MARIA Hudson MD Work Phone: [facility] 05-01-2023 11:05-0400 Body weight 62.05 kg JOSE MARIA Hudson MD Work Phone: [facility] 05-01-2023 11:05-0400 Diastolic blood pressure 63 mm[Hg] JOSE MARIA Hudson MD Work Phone: [facility] 05-01-2023 11:05-0400 Heart rate 61 /min JOSE MARIA Hudson MD Work Phone: [facility] 05-01-2023 11:05-0400 Respiratory rate 18 /min JOSE MARIA Hudson MD Work Phone: [facility] 05-01-2023 11:05-0400 SaO2% (BldA) [Mass fraction] 95 % JOSE MARIA Hudson MD Work Phone: [facility] 05-01-2023 11:05-0400 Systolic blood pressure 107 mm[Hg] JOSE MARIA Hudson MD Work Phone: [facility] 05-01-2023 08:45-0400 Body height 165.1 cm Charles Bazzi Other [facility] Other 05-01-2023 08:45-0400 Body mass index (BMI) [Ratio] 22.63 kg/m2 Charles Bazzi Other [facility] Other 05-01-2023 08:45-0400 Body weight 61.69 kg Charles Bazzi Other [facility] Other 05-01-2023 08:45-0400 Diastolic blood pressure 64 mm[Hg] Charles Kuns Other [facility] Other 05-01-2023 08:45-0400 Respiratory rate 16 /min Charles Alejos Other [facility] Other 05-01-2023 08:45-0400 SaO2% (BldA) [Mass fraction] 99 % Charles Kuns Other [facility] Other 05-01-2023 08:45-0400 Systolic blood pressure 110 mm[Hg] Charles Kuns Other [facility] Other 04-28-2023 14:08-0400 Body height 162.6 cm Tapan Corona MD Work Phone: [facility] 04-28-2023 14:08-0400 Body temperature 97.7 [degF] Tapan Corona MD Work Phone: [facility] 04-28-2023 14:08-0400 Body weight 62.32 kg Tapan Corona MD Work Phone: [facility] 04-28-2023 14:08-0400 Diastolic blood pressure 49 mm[Hg] Tapan Corona MD Work Phone: [facility] 04-28-2023 14:08-0400 Heart rate 65 /min Tapan Corona MD Work Phone: [facility] 04-28-2023 14:08-0400 Respiratory rate 18 /min Tapan Corona MD Work Phone: [facility] 04-28-2023 14:08-0400 SaO2% (BldA) [Mass fraction] 99 % Tapan Corona MD Work Phone: [facility] 04-28-2023 14:08-0400 Systolic blood pressure 106 mm[Hg] Tapan Corona MD Work Phone: [facility] 04-24-2023 11:33-0400 Body temperature 96.69 [degF] JOSE MARIA Hudson MD Work Phone: [facility] 04-24-2023 11:33-0400 Body weight 62.08 kg JOSE MARIA Hudson MD Work Phone: [facility] 04-24-2023 11:33-0400 Diastolic blood pressure 58 mm[Hg] JOSE MARIA Hudson MD Work Phone: [facility] 04-24-2023 11:33-0400 Heart rate 72 /min JOSE MARIA Hudson MD Work Phone: [facility] 04-24-2023 11:33-0400 Respiratory rate 18 /min JOSE MARIA Hudson MD Work Phone: [facility] 04-24-2023 11:33-0400 SaO2% (BldA) [Mass fraction] 99 % JOSE MARIA Hudson MD Work Phone: [facility] 04-24-2023 11:33-0400 Systolic blood pressure 122 mm[Hg] JOSE MARIA Hudson MD Work Phone: [facility] 04-14-2023 10:05-0400 Body height 160.7 cm Tapan Corona MD Work Phone: [facility] 04-14-2023 10:05-0400 Body temperature 97.5 [degF] Tapan Corona MD Work Phone: [facility] 04-14-2023 10:05-0400 Body weight 62.69 kg Tapan Corona MD Work Phone: [facility] 04-14-2023 10:05-0400 Diastolic blood pressure 48 mm[Hg] Tapan Corona MD Work Phone: [facility] 04-14-2023 10:05-0400 Heart rate 71 /min Tapan Corona MD Work Phone: [facility] 04-14-2023 10:05-0400 Respiratory rate 16 /min Tapan Corona MD Work Phone: [facility] 04-14-2023 10:05-0400 SaO2% (BldA) [Mass fraction] 99 % Tapan Corona MD Work Phone: [facility] 04-14-2023 10:05-0400 Systolic blood pressure 107 mm[Hg] Tapan Corona MD Work Phone: [facility] 04-10-2023 11:10-0400 Body temperature 97.81 [degF] NA Lauren VELASQUEZ Work Phone: [facility] 04-10-2023 11:10-0400 Body weight 63.05 kg JOSE MARIA Hudson MD Work Phone: [facility] 04-10-2023 11:10-0400 Diastolic blood pressure 66 mm[Hg] JOSE MARIA Hudson MD Work Phone: [facility] 04-10-2023 11:10-0400 Heart rate 71 /min JOSE MARIA Hudson MD Work Phone: [facility] 04-10-2023 11:10-0400 Respiratory rate 18 /min JOSE MARIA Hudson MD Work Phone: [facility] 04-10-2023 11:10-0400 SaO2% (BldA) [Mass fraction] 99 % JOSE MARIA Hudson MD Work Phone: [facility] 04-10-2023 11:10-0400 Systolic blood pressure 104 mm[Hg] JOSE MARIA Hudson MD Work Phone: [facility] 04-06-2023 12:44-0400 Body temperature 97.9 [degF] DO Charles Kuns Work Phone: [facility] 04-06-2023 12:44-0400 Diastolic blood pressure 63 mm[Hg] DO Charles Kuns Work Phone: [facility] 04-06-2023 12:44-0400 Heart rate 77 /min DO Charles Kuns Work Phone: [facility] 04-06-2023 12:44-0400 Respiratory rate 14 /min DO Charles Kuns Work Phone: [facility] 04-06-2023 12:44-0400 SaO2% (BldA) [Mass fraction] 99 % DO Charles Kuns Work Phone: [facility] 04-06-2023 12:44-0400 Systolic blood pressure 98 mm[Hg] DO Charles Kuns Work Phone: [facility] 04-06-2023 06:13-0400 Body weight 60 kg DO Charles Kuns Work Phone: [facility] 04-05-2023 18:29-0400 Body height 160.02 cm DO Charles Kuns Work Phone: [facility] 04-05-2023 17:00-0400 Diastolic blood pressure 54 mm[Hg] DO Charles Kuns Work Phone: [facility] 04-05-2023 17:00-0400 Heart rate 70 /min DO Charles Kuns Work Phone: [facility] 04-05-2023 17:00-0400 Respiratory rate 16 /min DO Charles Kuns Work Phone: [facility] 04-05-2023 17:00-0400 SaO2% (BldA) [Mass fraction] 99 % DO Charles Kuns Work Phone: [facility] 04-05-2023 17:00-0400 Systolic blood pressure 107 mm[Hg] DO Charles Kuns Work Phone: [facility] 04-05-2023 13:02-0400 Body height 160.02 cm DO Charles Kuns Work Phone: [facility] 04-05-2023 13:02-0400 Body temperature 98.2 [degF] DO Charles Alejos Work Phone: [facility] 04-05-2023 13:02-0400 Body weight 61.23 kg DO Charles Kuns Work Phone: [facility] 04-03-2023 12:00-0400 Body temperature 96.69 [degF] JOSE MARIA Hudson MD Work Phone: [facility] 04-03-2023 12:00-0400 Body weight 62.6 kg JOSE MARIA Hudson MD Work Phone: [facility] 04-03-2023 12:00-0400 Diastolic blood pressure 67 mm[Hg] JOSE MARIA Hudson MD Work Phone: [facility] 04-03-2023 12:00-0400 Heart rate 63 /min JOSE MARIA Hudson MD Work Phone: [facility] 04-03-2023 12:00-0400 Respiratory rate 18 /min JOSE MARIA Hudson MD Work Phone: [facility] 04-03-2023 12:00-0400 SaO2% (BldA) [Mass fraction] 97 % JOSE MARIA Hudson MD Work Phone: [facility] 04-03-2023 12:00-0400 Systolic blood pressure 130 mm[Hg] JOSE MARIA Hudson MD Work Phone: [facility] 03-22-2023 14:30-0400 Body height 160.7 cm Tapan Corona MD Work Phone: [facility] 03-22-2023 14:30-0400 Body temperature 97.81 [degF] Tapan Corona MD Work Phone: [facility] 03-22-2023 14:30-0400 Body weight 61.78 kg Tapan Corona MD Work Phone: [facility] 03-22-2023 14:30-0400 Diastolic blood pressure 67 mm[Hg] Tapan Corona MD Work Phone: [facility] 03-22-2023 14:30-0400 Heart rate 65 /min Tapan Corona MD Work Phone: [facility] 03-22-2023 14:30-0400 Respiratory rate 16 /min Tapan Corona MD Work Phone: [facility] 03-22-2023 14:30-0400 SaO2% (BldA) [Mass fraction] 99 % Tapan Corona MD Work Phone: [facility] 03-22-2023 14:30-0400 Systolic blood pressure 126 mm[Hg] Tapan Corona MD Work Phone: [facility] 03-16-2023 13:30-0400 Diastolic blood pressure 81 mm[Hg] Laisha Singer MD Work Phone: [facility] 03-16-2023 13:30-0400 Heart rate 66 /min Laisha Singer MD Work Phone: [facility] 03-16-2023 13:30-0400 Respiratory rate 18 /min Laisha Singer MD Work Phone: [facility] 03-16-2023 13:30-0400 SaO2% (BldA) [Mass fraction] 100 % Laisha Singer MD Work Phone: [facility] 03-16-2023 13:30-0400 Systolic blood pressure 96 mm[Hg] Laisha Singer MD Work Phone: [facility] 03-16-2023 13:07-0400 Body temperature 97.39 [degF] Laisha Singer MD Work Phone: [facility] 03-06-2023 11:55-0400 Diastolic blood pressure 64 mm[Hg] DO Charles Kuns Work Phone: [facility] 03-06-2023 11:55-0400 Heart rate 79 /min DO Charles Kuns Work Phone: [facility] 03-06-2023 11:55-0400 Respiratory rate 18 /min DO Charles Kuns Work Phone: [facility] 03-06-2023 11:55-0400 SaO2% (BldA) [Mass fraction] 100 % DO Charles Kuns Work Phone: [facility] 03-06-2023 11:55-0400 Systolic blood pressure 125 mm[Hg] DO Charles Kuns Work Phone: [facility] 03-06-2023 09:03-0400 Body height 165.1 cm DO Charles Kuns Work Phone: [facility] 03-06-2023 09:03-0400 Body temperature 97.6 [degF] DO Charles Kuns Work Phone: [facility] 03-06-2023 09:03-0400 Body weight 61.23 kg DO Charles Kuns Work Phone: [facility] 10-31-2022 10:00-0400 Body height 165.1 cm Charles [employer] Other [facility] [employer] Other 10-31-2022 10:00-0400 Body mass index (BMI) [Ratio] 25.29 kg/m2 Charles Alejos Other [employer] Other 10-31-2022 10:00-0400 Body weight 68.95 kg Charles [employer] Other [employer] Other 10-31-2022 10:00-0400 Diastolic blood pressure 70 mm[Hg] Charles Kuns Other [employer] [facility] [employer] Other 10-31-2022 10:00-0400 Respiratory rate 16 /min Charles Kuns Other [employer] Other 10-31-2022 10:00-0400 SaO2% (BldA) [Mass fraction] 96 % Charlespeyton Dhillons Other [employer] Other 10-31-2022 10:00-0400 Systolic blood pressure 122 mm[Hg] Charles Kuns Other [employer] Other 10-26-2022 14:49-0400 Diastolic blood pressure 70 mm[Hg] Charles R Kuns Work Phone: [facility] [employer] 250 DO Work Phone: 10-26-2022 14:49-0400 Systolic blood pressure 102 mm[Hg] Charles R Kuns Work Phone: [facility] [employer] DO Work Phone: 10-26-2022 14:48-0400 Body height 163.83 cm Charles R Kuns Work Phone: [facility] [employer] DO Work Phone: 10-26-2022 14:48-0400 Body mass index (BMI) [Ratio] 25.86 kg/m2 Charles R Kuns Work Phone: [facility] [employer] DO Work Phone: 10-26-2022 14:48-0400 Body surface area Derived from formula 1.76 m2 Charles R Kuns Work Phone: [facility] [employer] DO Work Phone: 10-26-2022 14:48-0400 Body weight 69.4 kg Charles R Kuns Work Phone: [facility] [employer] DO Work Phone: 10-26-2022 14:48-0400 Diastolic blood pressure 80 mm[Hg] Charles R Kuns Work Phone: [facility] [employer] DO Work Phone: 10-26-2022 14:48-0400 Heart rate 76 /min Charles R Kuns Work Phone: [facility] [employer] DO Work Phone: 10-26-2022 14:48-0400 Systolic blood pressure 110 mm[Hg] Charles R Kuns Work Phone: [facility] [employer] 250 DO Work Phone: 10-03-2022 10:00-0400 Body height 165.1 cm Charles Kuns Other [employer] Other 10-03-2022 10:00-0400 Body mass index (BMI) [Ratio] 26.46 kg/m2 Charles Alejos Other [employer] Other 10-03-2022 10:00-0400 Body weight 72.12 kg Charles Kuns Other [employer] Other 10-03-2022 10:00-0400 Diastolic blood pressure 66 mm[Hg] Charles Kuns Other [employer] Other 10-03-2022 10:00-0400 Respiratory rate 16 /min Charles Kuns Other [employer] Other 10-03-2022 10:00-0400 SaO2% (BldA) [Mass fraction] 97 % Charles Kuns Other [employer] Other 10-03-2022 10:00-0400 Systolic blood pressure 122 mm[Hg] Charles Kuns Other [employer] Other 05-18-2022 12:45-0500 Body height 165.1 cm Caroline Tan II Other [employer] Other 05-18-2022 12:45-0500 Body mass index (BMI) [Ratio] 28.45 kg/m2 Caroline Lyman II Other [employer] Other 05-18-2022 12:45-0500 Body weight 77.57 kg Caroline Lyman II Other [employer] Other 05-11-2022 11:30-0400 Body height 165.1 cm Caroline Lyman II Other [employer] Other 05-11-2022 11:30-0400 Body mass index (BMI) [Ratio] 28.45 kg/m2 Caroline Tan II Other [employer] Other 05-11-2022 11:30-0400 Body weight 77.57 kg Caroline Lyman II Other [employer] Other Encounters Encounter Date Encounter Type Care Provider Facility Start: 07-17-2024 End: 07-17-2024 ambulatory Charles Kuns DO Work Phone: [facility] Work Phone: Start: 07-17-2024 End: 07-17-2024 Patient encounter procedure Charles Kuns DO Work Phone: [facility] Physician [facility] Work Phone: Start: 07-15-2024 End: 07-15-2024 ambulatory Priscilla Robledo MD Facility:[facility] Start: 06-25-2024 End: 06-25-2024 Patient encounter procedure Charles Kuns DO Work Phone: [facility] Work Phone: Start: 06-11-2024 End: 06-11-2024 Patient encounter procedure Charles Kuns DO Work Phone: [facility] [place] Work Phone: Start: 06-11-2024 End: 06-11-2024 Patient encounter procedure Charles Kuns DO Work Phone: [facility] Physician [facility] Work Phone: Start: 06-04-2024 End: 06-04-2024 Patient encounter procedure Charles Kuns DO Work Phone: [facility] [place] Work Phone: Start: 06-04-2024 End: 06-04-2024 ambulatory Charles Kuns Facility:[facility] Start: 05-31-2024 Non-patient / Non-visit Charles Kuns DO Work Phone: [facility] Physician [facility] Work Phone: Start: 05-31-2024 End: 05-31-2024 Admission to same day surgery center Charles Kuns DO Work Phone: [facility] [place] Start: 05-31-2024 End: 05-31-2024 ambulatory Charles Kuns Facility:[facility] Start: 05-30-2024 End: 05-30-2024 Patient encounter procedure Charles Kuns DO Work Phone: [facility] Physician [facility] Work Phone: Start: 05-30-2024 End: 05-30-2024 ambulatory Charles Kuns DO Work Phone: [facility] Work Phone: Start: 05-23-2024 End: 05-23-2024 Emergency department patient visit Charles Kuns DO Work Phone: [facility] Work Phone: Start: 05-22-2024 Non-patient / Non-visit Charles Kuns DO Work Phone: [facility] Physician [facility] Work Phone: Start: 05-22-2024 End: 05-22-2024 Emergency department patient visit Charles Kuns DO Work Phone: [facility] Work Phone: Start: 05-08-2024 End: 05-08-2024 Patient encounter procedure Tapan Corona MD Work Phone: Hematology Comment on above: History of rectal ca ncer (Primary Dx) Start: 05-08-2024 Non-patient / Non-visit Charles Kuns DO Work Phone: [facility] Physician [facility] Work Phone: Start: 05-08-2024 End: 05-08-2024 ambulatory CHARLES BRENDON KUNS Facility:[facility] Start: 04-30-2024 Non-patient / Non-visit Charles Kuns DO Work Phone: [facility] Physician [facility] [place] Work Phone: Start: 04-10-2024 End: 04-10-2024 Patient encounter procedure Del Hudson MD Work Phone: Radiation Oncology Comment on above: Rectal adenocarcinom a (HCC) (Primary Dx) Start: 04-10-2024 End: 04-10-2024 ambulatory CHARLES BRENDON KUNS Facility:[facility] Start: 03-25-2024 End: 03-25-2024 ambulatory Priscilla Robledo MD Facility:[facility] Start: 03-18-2024 End: 03-18-2024 ambulatory Priscilla Robledo MD Facility:[facility] Start: 03-04-2024 End: 03-04-2024 ambulatory Priscilla Robledo MD Facility: [facility] Start: 02-21-2024 End: 02-27-2024 Clinisync Result Encounter Cathleen TAY Work Phone: [facility] External Department Unsolicited Start: 02-21-2024 End: 02-27-2024 Clinisync Result Encounter Cathleen Paezcody TAY Work Phone: [facility] External Department Unsolicited Start: 02-21-2024 Telephone encounter Kari Frias Hematology/Oncology Comment on above: Signatera results Start: 02-21-2024 End: 02-21-2024 ambulatory CATHLEEN VINCENT Not Available Start: 02-20-2024 End: 02-20-2024 ambulatory OSCAR VALLE Not Available Start: 02-07-2024 End: 02-07-2024 ambulatory CRISTHIAN V Not Available Start: 02-06-2024 Telephone encounter Tapan tinsley MD Work Phone: [facility] Comment on above: Future Appointment Refill Request Start: 02-06-2024 End: 02-06-2024 Patient encounter procedure Tapan Corona MD Work Phone: Hematology/Oncology Start: 02-06-2024 End: 02-06-2024 ambulatory Tapan Corona MD Work Phone: Hematology/Oncology Comment on above: History of rectal ca ncer (Primary Dx) Start: 01-16-2024 Telephone encounter Laisha frias MD Work Phone: Colorectal Surgery Comment on above: Patient Question Start: 01-12-2024 End: 01-12-2024 ambulatory CRISTHIAN V Not Available Start: 01-09-2024 End: 01-09-2024 ambulatory CHARLES BAZZI Facility:[facility] Start: 01-09-2024 End: 01-09-2024 Patient encounter procedure [...] VALLE Not Available Start: 12-12-2023 Telephone encounter Tapan tinsley MD Work Phone: Radiation Oncology Comment on above: [place] Start: 11-24-2023 End: 11-24-2023 ambulatory [facility] Facility:[facility] Start: 11-24-2023 End: 11-24-2023 Patient encounter procedure Brandie Celsotammy HUITRONCONSUMER ELECTRONIC RETAIL SPECIALIST Work Phone: Colorectal Surgery Comment on above: Follow-up examinatio n after colorectal surgery (Primary Dx) Start: 11-20-2023 Admission to [facility] Laisha Singer MD Work Phone: Colorectal Surgery Comment on above: Sharp, Burning Pain R Hip Area Start: 11-20-2023 ambulatory Laisha Singer MD Work Phone: Colorectal Surgery Start: 11-13-2023 Telephone encounter Colleen Solorio RN Work Phone: Hematology/Oncology Comment on above: Care Coordination (H ospital d/c follow up call) Start: 11-06-2023 End: 11-10-2023 Evaluation and management of inpatient [facility] Facility:[facility] Start: 11-06-2023 Telephone encounter Colleen Solorio RN Work Phone: Hematology/Oncology Comment on above: Care Coordination (L ab results) Patient Question Start: 10-30-2023 Admission to [facility] Laisha Singer MD Work Phone: Colorectal Surgery Comment on above: Frequent Bowel Obstr uctions/Plan Start: 10-30-2023 ambulatory Laisha Singer MD Work Phone: Colorectal Surgery Start: 10-26-2023 Non-patient / Non-visit DO Angela tt Kuns Work Phone: [facility]ician Group-[facility] Work Phone: Start: 10-26-2023 End: 10-28-2023 Evaluation and management of inpatient DO Charlespeyton Dhillons Work Phone: [facility] [place] [address] Surgical Work Phone: Start: 10-25-2023 Telephone encounter Laisha frias MD Work Phone: Colorectal Surgery Comment on above: Patient Question; Me dication Question Start: 10-24-2023 End: 10-24-2023 Patient encounter procedure DO Charles Kuns Work Phone: [facility] [place] Work Phone: Start: 10-24-2023 End: 10-24-2023 ambulatory DO Charlespeyton Dhillons Work Phone: [facility] Work Phone: Start: 10-19-2023 Patient encounter procedure [facility] Provider [facility] Department Start: 10-17-2023 Telephone encounter Colleen Solorio RN Work Phone: Hematology/Oncology Comment on above: Care Coordination (s ignatera) Start: 10-10-2023 End: 10-10-2023 Patient encounter procedure Jax De León LMT Work Phone: Hematology/Oncology Comment on above: Muscle soreness (Rosa raz Dx) Rectal adenocarcinom a (HCC) (Primary Dx) Start: 10-10-2023 Non-patient / Non-visit DO Angela tt Kuns Work Phone: [facility] Work Phone: Start: 10-10-2023 End: 10-10-2023 ambulatory Lab/[place] Zurita Work Phone: Hematology/Oncology Comment on above: History of rectal ca ncer History of rectal ca ncer (Primary Dx) Start: 10-02-2023 End: 10-02-2023 ambulatory SUDHA THAPA Not Available Start: 09-30-2023 End: 10-01-2023 Non-patient / Non-visit DO Charles Bazzi Work Phone: [facility] Work Phone: Start: 09-30-2023 End: 10-01-2023 Evaluation and management of inpatient DO Charles Bazzi Work Phone: [facility] [place] Med Surg Work Phone: Start: 09-22-2023 End: 09-22-2023 ambulatory CHARLES BAZZI Facility:[facility] Start: 09-22-2023 End: 09-22-2023 Patient encounter procedure Brandie Salmeron DECONTAMINATOR.CONSUMER ELECTRONIC RETAIL SPECIALIST Work Phone: Colorectal Surgery Comment on above: Follow-up examinatio n after colorectal surgery (Primary Dx) Start: 09-14-2023 ambulatory Laisha Singer MD Work Phone: Colorectal Surgery Comment on above: Conference recommend ations Start: 09-14-2023 E-mail encounter fro m caregiver Laisha Singer MD Work Phone: [facility] Start: 09-06-2023 Telephone encounter Colleen Solorio RN Work Phone: Hematology/Oncology Comment on above: Care Coordination (H ospital d/c follow up call) Care Coordination (F ollow up appointment) Start: 09-05-2023 Admission to [facility] Laisha Singer MD Work Phone: Colorectal Surgery Comment on above: Surgery pathology Start: 09-05-2023 E-mail encounter fro m caregiver Laisha Singer MD Work Phone: [facility] Start: 09-05-2023 Telephone encounter Laisha frias MD Work Phone: Colorectal Surgery Comment on above: User Experience Designer - O ther (Tumor board) Start: 09-04-2023 Non-patient / Non-visit DO Angela tt Kuns Work Phone: [facility] Work Phone: Start: 09-03-2023 Non-patient / Non-visit DO Angela tt Kuns Work Phone: [facility] Work Phone: Start: 09-02-2023 Non-patient / Non-visit DO Angela tt Kuns Work Phone: [facility] Work Phone: Start: 09-01-2023 Telephone encounter Colleen Solorio RN Work Phone: Hematology/Oncology Comment on above: Care Coordination (H ospital d/c follow up call) Start: 09-01-2023 Non-patient / Non-visit DO Angela tt Kuns Work Phone: [facility] Work Phone: Start: 08-31-2023 End: 09-04-2023 Evaluation and management of inpatient CHARLES BRENDONNOEMÍ BAZZI Facility:[facility] Start: 08-31-2023 Non-patient / Non-visit DO Angela tt Kuns Work Phone: [facility] Work Phone: Start: 08-30-2023 Non-patient / Non-visit DO Angela tt Kuns Work Phone: [facility] Work Phone: Start: 08-29-2023 Non-patient / Non-visit DO Angela tt Kuns Work Phone: [facility] Work Phone: Start: 08-28-2023 Non-patient / Non-visit DO Angela tt Kuns Work Phone: [facility] Work Phone: Start: 08-27-2023 Non-patient / Non-visit DO Angela Bazzi Work Phone: [facility] Work Phone: Start: 08-26-2023 Non-patient / Non-visit DO Angela Bazzi Work Phone: [facility] [facility] Work Phone: Start: 08-25-2023 End: 08-30-2023 Evaluation and management of inpatient LAISHA BAN Facility:[facility] Start: 08-11-2023 Encounter for other preprocedural examination CHARLES BAZZI [facility] Start: 08-11-2023 End: 08-11-2023 [facility] 2 Work Phone: Pre Anesthesia Comment on above: Pre-op examination ( Primary Dx); Atrial fibrillation, unspecified type (HCC); Essential hypertension; Hyperlipidemia, unspecified hyperlipidemia type; Gastroesophageal reflux disease without esophagitis; Other iron deficiency anemia; Rectal cancer (HCC); Mixed anxiety depressive disorder Start: 08-11-2023 End: 08-11-2023 Preprocedural examination done [facility] 2 Work Phone: [facility] Work Phone: Start: 08-07-2023 End: 08-07-2023 ambulatory CHARLES BAZZI Facility:[facility] Start: 07-27-2023 ambulatory [facility] Facility:[facility] Start: 07-25-2023 End: 07-25-2023 ambulatory [facility] Ambulatory Start: 07-25-2023 End: 07-25-2023 Office outpatient visit 15 minutes Marcos Rios MD Work Phone: [facility] Comment on above: Other chest pain (Pr imary Dx); Essential hypertension; Colorectal cancer (CMS/HCC); BMI 24.0-24.9, adult; History of atrial fibrillation Start: 07-21-2023 End: 07-21-2023 ambulatory CHARLES BAZZI Facility:[facility] Start: 07-18-2023 End: 07-18-2023 ambulatory CHARLES BAZZI Facility:[facility] Start: 07-13-2023 End: 07-14-2023 ambulatory CHARLES BAZZI Facility:[facility] Start: 07-07-2023 End: 07-07-2023 ambulatory CHARLES BAZZI Facility:[facility] Start: 07-05-2023 End: 07-05-2023 ambulatory CHARLES BAZZI Facility:[facility] Start: 07-04-2023 End: 07-04-2023 ambulatory CRISTHIAN V Not Available Start: 06-26-2023 End: 06-26-2023 Admission to same day surgery center DO Charles Bazzi Work Phone: [facility] [place] Start: 06-26-2023 End: 06-26-2023 ambulatory DO Charles Bazzi Work Phone: [facility] Work Phone: Start: 06-21-2023 Telephone encounter Colleen Solorio RN Work Phone: Hematology/Oncology Comment on above: Care Coordination (M edication update) Start: 06-20-2023 End: 06-20-2023 ambulatory CHARLES BAZZI Facility:[facility] Start: 06-20-2023 End: 06-20-2023 Nursing evaluation of patient and report Colleen Solorio RN Work Phone: Hematology/Oncology Comment on above: Rectal cancer (HCC) (Primary Dx) Start: 06-19-2023 End: 06-19-2023 ambulatory CRISTHIAN V Not Available Start: 06-14-2023 End: 06-14-2023 Patient encounter procedure Tapan Corona MD Work Phone: [facility] Start: 06-14-2023 End: 06-14-2023 ambulatory Tapan Corona MD Work Phone: Hematology/Oncology Comment on above: Rectal cancer (HCC) (Primary Dx) Start: 06-13-2023 End: 06-13-2023 ambulatory OSCAR A LIANA Not Available Start: 06-12-2023 End: 06-12-2023 ambulatory [facility] Facility:[facility] Start: 06-12-2023 End: 06-12-2023 Subsequent hospital visit by physician Mri 6 Radio Main Q (I-Stat/1.5t/3t) Work Phone: MRI Q Comment on above: Rectal cancer (HCC) [C20] Start: 06-08-2023 Telephone encounter Princess burch (Pss) Radiology Comment on above: Appointment reminder (Appointment reminder call--spoke with patient--gave directions to the office.) Start: 06-08-2023 ambulatory [facility] Facility: [facility] Start: 06-08-2023 End: 06-08-2023 Subsequent hospital visit by physician Laisha Singer MD Work Phone: Procedures Comment on above: Rectal cancer (HCC) [C20] Start: 05-29-2023 End: 05-29-2023 Patient encounter procedure Del Hudson MD Work Phone: Radiation Oncology Comment on above: Rectal adenocarcinom a (HCC) (Primary Dx) Start: 05-29-2023 End: 05-29-2023 ambulatory [facility] Facility:[facility] Start: 05-11-2023 End: 05-11-2023 [facility] Other [employer] Other Start: 05-11-2023 Telephone encounter Charles Bazzi [facility] Start: 05-10-2023 End: 05-10-2023 ambulatory [facility] Facility:[facility] Start: 05-10-2023 Patient encounter procedure Del Hudson MD Work Phone: [facility] Start: 05-10-2023 Radiation Oncology Note Del Hudson MD Work Phone: Radiation Oncology Comment on above: Completion Note Start: 05-08-2023 End: 05-08-2023 Patient encounter procedure Del Hudson MD Work Phone: Radiation Oncology Comment on above: Rectal adenocarcinom a (HCC) (Primary Dx) Start: 05-02-2023 Patient encounter procedure Osmany Lee T Hematology/Oncology Comment on above: Muscle soreness (Rosa raz Dx) Start: 05-01-2023 End: 05-01-2023 ambulatory Charles Bazzi Other [facility] [employer] Other Start: 05-01-2023 Office outpatient vi sit 25 minutes Charles Bazzi [facility] Start: 05-01-2023 End: 05-01-2023 Patient encounter procedure Lab[facility] Work Phone: Radiation Oncology Comment on above: Dysuria (Primary Dx) Dysuria (Primary Dx) ; Rectal adenocarcinoma (HCC) Start: 04-28-2023 End: 04-28-2023 ambulatory Tapan Corona MD Work Phone: Hematology/Oncology Comment on above: Rectal cancer (HCC) (Primary Dx) Start: 04-28-2023 End: 04-28-2023 Patient encounter procedure Tapan Corona MD Work Phone: [employer] Start: 04-25-2023 Patient encounter procedure Osmany Lee T Hematology/Oncology Comment on above: Muscle soreness (Rosa raz Dx) Start: 04-24-2023 End: 04-24-2023 Patient encounter procedure Del Hudson MD Work Phone: Radiation Oncology Comment on above: Rectal adenocarcinom a (HCC) (Primary Dx) Start: 04-14-2023 End: 04-14-2023 ambulatory Tapan Corona MD Work Phone: Hematology/Oncology Comment on above: Rectal cancer (HCC) (Primary Dx) Start: 04-14-2023 End: 04-14-2023 Patient encounter procedure Tapan Corona MD Work Phone: [employer] Start: 04-10-2023 End: 04-10-2023 Patient encounter procedure Del Hduson MD Work Phone: Radiation Oncology Comment on above: Rectal adenocarcinom a (HCC) (Primary Dx) Start: 04-06-2023 Telephone encounter Mylene ( Rn) Zeeshan KIRKPATRICK [facility] Radiology Procedure Comment on above: Radiology Pre Proced ure Instructions Start: 04-06-[address] Charles Bazzi Fa cility:[id number] Start: 04-05-2023 End: 04-06-2023 Evaluation and management of inpatient DO Charles Bazzi Work Phone: [facility] [place] [facility] Work Phone: Start: 04-05-2023 End: 04-06-2023 observation encounter DO Charles Bazzi Work Phone: [facility] Work Phone: Start: 04-05-2023 Telephone encounter Colleen Solorio RN Work Phone: Hematology/Oncology Comment on above: Care Coordination (C linical update) Care Coordination (E R recommendations) Start: 04-03-2023 Telephone encounter Colleen Solorio RN Work Phone: Hematology/Oncology Comment on above: Care Coordination (C 1D1 treatment follow up call) Start: 04-03-2023 End: 04-03-2023 Patient encounter procedure Del Hudson MD Work Phone: Radiation Oncology Comment on above: Rectal adenocarcinom a (HCC) (Primary Dx) Start: 03-28-2023 End: 03-28-2023 ambulatory Imad Asaad Other [employer] Other Start: 03-28-2023 Telephone encounter Imad Asaad [facility] Start: 03-22-2023 End: 03-22-2023 Subsequent hospital visit by physician Del Hudson MD Work Phone: Radiology Pet [facility] Start: 03-22-2023 End: 03-22-2023 ambulatory Tapan Corona MD Work Phone: Hematology/Oncology Comment on above: Rectal cancer (HCC) (Primary Dx) Patient Education Start: 03-22-2023 End: 03-22-2023 Nursing evaluation of patient and report Colleen Solorio RN Work Phone: Hematology/Oncology Comment on above: Rectal cancer (HCC) (Primary Dx) Refill Request Start: 03-22-2023 End: 03-23-2023 Patient encounter procedure Tapan Corona MD Work Phone: [place] Comment on above: Rectal adenocarcinom a (HCC) (Primary Dx) Start: 03-22-2023 Radiation Oncology Note Del Hudson MD Work Phone: Radiation Oncology Comment on above: Treatment Planning Start: 03-21-2023 Telephone encounter Colleen Solorio RN Work Phone: Hematology/Oncology Comment on above: Care Coordination (T reatment plan) Start: 03-16-2023 End: 03-16-2023 Subsequent hospital visit by physician Laisha Singer MD Work Phone: Procedures Start: 03-15-2023 [facility] Start: 03-15-2023 End: 03-15-2023 Subsequent hospital visit by physician Nunu Lares (I-Stat/1.5t) Work Phone: Radiology Comment on above: Rectal adenocarcinom a (HCC) [C20] Start: 03-08-2023 End: 03-08-2023 Patient encounter procedure Del Hudson MD Work Phone: Radiation Oncology Comment on above: Rectal adenocarcinom a (HCC) (Primary Dx) Start: 03-07-2023 Chart abstracting Tapan urbano MD Work Phone: Hematology/Oncology Start: 03-07-2023 Telephone encounter Del Hudson MD Work Phone: Radiation Oncology Comment on above: Orders Start: 03-06-2023 End: 03-06-2023 Admission to same day surgery center DO Charles Bazzi Work Phone: [facility] Work Phone: Start: 02-28-2023 End: 02-28-2023 ambulatory Charles Kuns Other [employer] Other Start: 02-28-2023 Telephone encounter Charles Kuns [facility] Start: 02-23-2023 End: 02-23-2023 ambulatory Imad Asaad Other [employer] Other Start: 02-23-2023 Telephone encounter Imad Asaad [facility] Start: 02-07-2023 End: 02-07-2023 ambulatory Charles Kuns Other [employer] Other Start: 02-07-2023 Telephone encounter Charles Kuns [facility] Start: 11-07-2022 End: 11-08-[address] SHAKILA CHAO . Facility:[facility] Start: 11-03-2022 End: 11-03-[address] SHAKILA CHAO . Facility:[facility] Start: 10-31-2022 End: 10-31-2022 ambulatory Charles Kuns Other [employer] Other Start: 10-31-2022 Office outpatient vi sit 25 minutes Charles Alejos [facility] Start: 10-26-2022 Office consultation new/estab patient 40 min Charles R Dixie Work Phone: [facility] 250 DO Work Phone: Start: 10-26-[address] Marcos Rios Facility: Start: 10-11-2022 End: 10-11-2022 ambulatory Charles Kuns Other [employer] Other Start: 10-11-2022 Telephone encounter Charles Kuns [facility] Start: 10-03-2022 End: 10-03-2022 ambulatory Charles Kuns Other [employer] Other Start: 10-03-2022 Office outpatient vi sit 25 minutes Charles Kuns [facility] [place] Start: 10-03-2022 Telephone encounter Charles Kuns [facility] [place] Start: 09-22-2022 End: 09-22-2022 ambulatory Charles Kuns Other [employer] Other Start: 09-22-2022 Telephone encounter [facility]uns [facility] Start: 09-20-2022 End: 09-20-2022 ambulatory Charles Kuns Other [employer] Other Start: 09-20-2022 Telephone encounter Charles Kuns [facility] Start: 09-06-2022 End: 09-06-2022 ambulatory Charles Kuns Other [employer] Other Start: 09-06-2022 Telephone encounter Charles Kuns [facility] Start: 09-05-2022 End: 09-05-2022 ambulatory Charles Kuns Other [employer] Other Start: 09-05-2022 Telephone encounter Charles Kuns [facility] Start: 09-01-2022 End: 09-13-2022 ambulatory CAROLINE TAN Facility: Start: 08-18-2022 End: 08-18-2022 ambulatory Caroline Tan II Other [employer] Other Start: 08-18-2022 Office outpatient vi sit 25 minutes Caroline Tan II [facility] Start: 08-17-2022 End: 08-17-2022 ambulatory Charles Kuns Other [employer] Other Start: 08-17-2022 Telephone encounter Charles Kuns [facility] Start: 05-25-2022 End: 05-25-2022 ambulatory DO Charles Kuns Work Phone: [facility] Work Phone: Start: 05-25-2022 End: 05-25-2022 Patient encounter procedure DO Charles Kuns Work Phone: [facility] [place] Start: 05-20-2022 End: 05-20-2022 ambulatory DO Charles Kuns Work Phone: [facility] Work Phone: Start: 05-20-2022 End: 05-20-2022 Patient encounter procedure DO Charles Kuns Work Phone: [facility] Start: 05-18-2022 End: 05-18-2022 ambulatory Charles Kuns Other [employer] Other Start: 05-18-2022 Encounter by anthony Dhillons [facility] Start: 05-18-2022 Office outpatient vi sit 25 minutes Caroline Tan II [facility] [place] Start: 05-11-2022 End: 05-11-2022 ambulatory Caroline Tan II Other [employer] Other Start: 05-11-2022 Office outpatient vi sit 25 minutes Caroline Tan II [facility] Start: 04-27-2022 End: 04-27-2022 ambulatory Charles Alejos Other [employer] Other Start: 04-27-2022 Telephone encounter Charles Kuns [facility] [place] Start: 04-20-2022 End: 04-20-2022 ambulatory Charles Kuns Other [employer] Other Start: 04-20-2022 Telephone encounter Charles Kuns [facility] [place] Start: 02-11-2022 End: 02-11-2022 ambulatory Caroline Tan II Other [facility] [employer] Other Start: 02-11-2022 Office outpatient ne w 45 minutes Caroline Rangel II [facility] Start: 02-11-2022 End: 02-11-2022 Patient encounter procedure DO Charles Dhillons Work Phone: [facility] Start: 04-25-2017 Ambulatory CHARLES DIXIE Facility:1 532 Patient encounter status Charles R Kuns Work Phone: -[facility] 250 DO Work Phone: Procedures Date Procedure Procedure Detail Performing Clinician Start: 05-31-2024 Aerobic microbial culture Charles Kuns DO Work Phone: Start: 05-31-2024 Anaerobic microbial culture Charles Alejos DO Work Phone: Start: 05-31-2024 Gram stain microscopy B rett Kuns DO Work Phone: Start: 05-31-2024 Incision and drainag e of lower extremity Charles Kuns DO Work Phone: Start: 05-30-2024 Plain X-ray of right hand Charles Kuns DO Work Phone: Start: 05-23-2024 Bacteria identified in Blood by Culture Charles Alejos DO Work Phone: Start: 05-22-2024 Bacteria identified in Blood by Culture Charles Alejos DO Work Phone: Start: 05-22-2024 Bacterial ID (NA Mul tiplex Assay) Charles Kuns DO Work Phone: Start: 05-22-2024 X-ray of right middle finger Charles Kuns DO Work Phone: Start: 05-08-2024 Carcinoembryonic antigen cea Charles Kuns DO Work Phone: Comment on above: Carcinoembryonic ant igen test is used as an aid in monitoring response to treatment or recurrence in patients with established colorectal, breast, lung, prostatic, pancreatic, and ovarian carcinomas. Clinical correlation is required.The Carcinoembryonic antigen test was performed using the [employer] Unicel DXI paramagnetic particle chemiluminescent immunoassay method. Results obtained with different assay methods or kits cannot be used interchangeably. Start: 02-21-2024 IGP,APTIMA HPV,AGE GDLN Cathleen TAY Work Phone: Start: 01-12-2024 H/O: ileostomy Ileostomy status Cathleen TAY Work Phone: Start: 11-06-2023 Antibody screen LAISHA SINGER Comment on above: Order Comment: Speci men Type: BLOOD SPECIMENOrdering Facility: [facility] Address: [address] [place] [address] Performed By: #### T SCR ####[facility] BLOOD BANKIA [id number] [address] OF [place] Start: 10-26-2023 Diagnostic radiograp hy of abdomen DO Charles Bazzi Work Phone: Start: 10-25-2023 CT angiography of thorax DO Charles Bazzi Work Phone: Start: 10-25-2023 Computed tomography of abdomen and pelvis with contrast DO Charles Bazzi Work Phone: Start: 10-25-2023 Urine culture DO Charles Bazzi Work Phone: Start: 10-10-2023 Blood count complete auto&auto difrntl wbc Tapan Corona MD Work Phone: Comment on above: Carcinoembryonic ant igen test is used as an aid in monitoring response to treatment or recurrence in patients with established colorectal, breast, lung, prostatic, pancreatic, and ovarian carcinomas. Clinical correlation is required.The Carcinoembryonic antigen test was performed using the [employer] Unicel DXI paramagnetic particle chemiluminescent immunoassay method. Results obtained with different assay methods or kits cannot be used interchangeably. Start: 09-30-2023 CT of abdomen and pe lvis without contrast DO Charles Bazzi Work Phone: Start: 02-02-2024 Antibody screen CHARLES K UNS Comment on above: Order Comment: Speci men Type: BLOOD SPECIMENOrdering Facility: [facility] Address: [address] [place] [address] Performed By: #### T [id number] ####CC MAIN BLOOD BANKCLIA [id number] SARAH LOPEZ [id number] [id number] [place] Start: 06-26-2023 Plain chest X-ray DO Br ett Kuns Work Phone: Start: 06-26-2023 OR Infusaport Insertion/Removal (Not Applicable) DO Charles Kuns Work Phone: Start: 06-12-2023 Mri pelvis w/o & w/c ontrast material Tapan Corona MD Work Phone: Start: 06-08-2023 Sigmoidoscopy flx dx w/collj spec br/wa if pfrmd [facility] Provider Start: 04-05-2023 CT angiography of thorax DO Charles Kuns Work Phone: Start: 03-16-2023 Sigmoidoscopy flx dx w/collj spec br/wa if pfrmd Laisha Singer MD Work Phone: Start: 03-15-2023 Mri pelvis w/o & w/c ontrast material G Monty Hudson MD Work Phone: Start: 03-06-2023 Computed tomography of abdomen and pelvis with contrast DO Charles Kuns Work Phone: Start: 03-06-2023 CT of thorax with contrast DO Charles Kuns Work Phone: Start: 03-06-2023 Colonoscopy DO Charles K uns Work Phone: Start: 05-20-2022 Screening mammograph y of bilateral breasts DO Charles Kuns Work Phone: Start: 02-11-2022 Pelvis X-ray DO Charles K uns Work Phone: Start: 02-11-2022 X-ray of both knees DO Charles Kuns Work Phone: Start: 09-21-2018 Mammography Cathleen TAY Work Phone: Start: 07-10-2015 Total colonoscopy Charles Bazzi Work Phone: Cholecystectomy Charles R Dixie Work Phone: Excision of melanoma Charles Bazzi Work Phone: H/O: ileostomy Ileostomy status DO Charles Bazzi Work Phone: Neuroplasty Charles Bazzi Work Phone: Operative procedure on ankle Charles Bazzi Work Phone: Plan of Treatment Date Care Activity Detail Author Start: 07-27-2028 Screening for malignant neoplasm of colon [facility] Start: 06-08-2028 Colorectal Cancer Screening Colorectal Cancer Screening [facility] Start: 06-08-2028 Screening for malignant neoplasm of colon [facility] Start: 06-08-2028 Sigmoidoscopy Sigmoidoscopy [facility] Start: 03-16-2028 Colorectal Cancer Screening Colorectal Cancer Screening [facility] Start: 03-16-2028 SIGMOIDOSCOPY SIGMOIDOSCOPY [facility] Start: 05-08-2027 Diabetes Screening Diabetes Screening [facility] Start: 02-05-2027 Diabetes Screening Diabetes Screening [facility] Start: 11-09-2026 Diabetes Screening Diabetes Screening [facility] Start: 11-05-2026 Diabetes Screening Diabetes Screening [facility] Start: 10-09-2026 Diabetes Screening Diabetes Screening [facility] Start: 09-04-2026 Diabetes Screening Diabetes Screening [facility] Start: 09-01-2026 Diabetes Screening Diabetes Screening [facility] Start: 07-13-2026 Diabetes Screening Diabetes Screening [facility] Start: 06-14-2026 Diabetes Screening Diabetes Screening [facility] Start: 04-28-2026 Diabetes Screening Diabetes Screening [facility] Start: 04-14-2026 Diabetes Screening Diabetes Screening [facility] Start: 12-31-2024 End: 12-31-2024 Patient encounter procedure 12/31/2024 9:00 AM EDT Office Visit [facility] [address] [place] [id number] sOcar Valle, [address] [place] [address] [facility] Start: 11-23-2024 BP Controlled (<130/80) BP Controlled (<130/80) [facility] Start: 11-03-2024 Screening for osteoporosis Bone Density Scan [facility] Start: 10-09-2024 BP Controlled (<130/80) BP Controlled (<130/80) [facility] in Start: 10-09-2024 End: 10-09-2024 Patient encounter procedure 10/09/2024 9:00 AM EDT Office Visit Radiation Oncology [address] [place] [address] [place] [address] Del Hudson MD [address] [place] [address] [place] [address] followup Radiation Oncology Comment on above: followup Start: 09-21-2024 BP Controlled (<130/80) BP Controlled (<130/80) [facility] in Start: 09-03-2024 End: 09-03-2024 Follow-up encounter 09/03/2024 1:45 PM EST Visit (SP) Office Hematology [id number] [place], [place] [id number] Tapan Corona MD [address] [place] [id number] Follow up in August Hematology Comment on above: Follow up in August Start: 08-14-2024 End: 11-13-2024 Carcinoembryonic Ag [Mass/volume] in Serum or Plasma CARCINOEMBRYONIC ANTIGEN Lab Routine History of rectal cancer Expected: 08/14/2024 (Approximate), Expires: 11/13/2024 [facility] Comment on above: Expected: 08/14/2024 (Approximate), Expi res: 11/13/2024 Start: 08-14-2024 End: 11-13-2024 CBC W Auto Differential panel - Blood COMPLETE BLOOD COUNT AND DIFFERENTIAL Lab Routine History of rectal cancer Expected: 08/14/2024 (Approximate), Expires: 11/13/2024 [facility] Work Phone: Comment on above: Expected: 08/14/2024 (Approximate), Expi res: 11/13/2024 Start: 08-14-2024 End: 11-13-2024 Comprehensive metabolic 2000 panel - Serum or Plasma COMPREHENSIVE METABOLIC PANEL Lab Routine History of rectal cancer Expected: 08/14/2024 (Approximate), Expires: 11/13/2024 [facility] Comment on above: Expected: 08/14/2024 (Approximate), Expi res: 11/13/2024 Start: 08-14-2024 End: 11-13-2024 MISC SEND OUT TST 1 MISC SEND OUT TST 1 Lab Routine History of rectal cancer Expected: 08/14/2024 (Approximate), Expires: 11/13/2024 [facility] Comment on above: Expected: 08/14/2024 (Approximate), Expi res: 11/13/2024 Start: 08-11-2024 BP Controlled (<130/80) BP Controlled (<130/80) [facility] Start: 05-31-2024 End: 05-31-2024 [facility] Start: 05-30-2024 Plain X-ray of right hand XR hand RT min 3V* [facility] Start: 05-30-2024 XR Hand - right GE 3 Views [facility] Start: 05-23-2024 Bacteria identified in Blood by Culture Blood Culture [facility] Start: 05-23-2024 [facility] Start: 05-22-2024 Bacteria identified in Blood by Culture Blood Culture [facility] Start: 05-22-2024 End: 05-22-2024 [facility] Start: 05-08-2024 End: 08-07-2024 Carcinoembryonic Ag [Mass/volume] in Serum or Plasma CARCINOEMBRYONIC ANTIGEN Lab Routine History of rectal cancer Expected: 05/08/2024 (Approximate), Expires: 08/07/2024 [facility] Comment on above: Expected: 05/08/2024 (Approximate), Expi res: 08/07/2024 Start: 05-08-2024 End: 08-07-2024 CBC W Auto Differential panel - Blood COMPLETE BLOOD COUNT AND DIFFERENTIAL Lab Routine History of rectal cancer Expected: 05/08/2024 (Approximate), Expires: 08/07/2024 [facility] Work Phone: Comment on above: Expected: 05/08/2024 (Approximate), Expi res: 08/07/2024 Start: 05-08-2024 End: 08-07-2024 Comprehensive metabolic 2000 panel - Serum or Plasma COMPREHENSIVE METABOLIC PANEL Lab Routine History of rectal cancer Expected: 05/08/2024 (Approximate), Expires: 08/07/2024 [facility] Comment on above: Expected: 05/08/2024 (Approximate), Expi res: 08/07/2024 Start: 05-08-2024 End: 08-07-2024 MISC SEND OUT TST 1 MISC SEND OUT TST 1 Lab Routine History of rectal cancer Expected: 05/08/2024 (Approximate), Expires: 08/07/2024 [facility] Comment on above: Expected: 05/08/2024 (Approximate), Expi res: 08/07/2024 Start: 05-08-2024 End: 05-08-2024 Follow-up encounter 05/08/2024 1:45 PM EDT Visit (SP) Office Hematology [address] [place] [address] Tapan Corona MD [address] [facility] [place] [address] 3 month follow up Hematology Comment on above: 3 month follow up Start: 05-08-2024 End: 05-08-2024 Patient encounter procedure 05/08/2024 1:30 PM EDT Results Only [facility] [address] [place] [address] [facility] Comment on above: labs cole Start: 04-10-2024 End: 04-10-2024 Patient encounter procedure 04/10/2024 10:15 AM EDT Office Visit Radiation Oncology [address] [place] [address] Del Hudson MD [address] [place] [address] [place] [address] followup Radiation Oncology Comment on above: followup Start: 03-10-2024 Covid-19 Vaccine ( season) Covid-19 Vaccine ( season) [facility] Start: 03-10-2024 Covid-19 Vaccine () Covid-19 Vaccine () [facility] Start: 03-10-2024 Influenza vaccination [facility] Start: 02-13-2024 End: 02-13-2024 Patient encounter procedure 02/13/2024 1:20 PM EDT Office Visit Colorectal Surgery [address] [place], [place] [id number] [place] [address] [place], [place] [id number] Est patient, 3 month follow up, , robotic LAR, DLI, surgery 08/25/23 Colorectal Surgery Comment on above: Est patient, 3 month follow up, , roboti c LAR, DLI, surgery 08/25/23 Start: 02-06-2024 End: 02-06-2024 Follow-up encounter 02/06/2024 11:15 AM EDT Visit (SP) Office Hematology/Oncology [address] [address] Tapan Corona MD [address] [place] [address] [place] [address] 3 month follow up [facility] Hematology/Oncology Comment on above: 3 month follow up [facility] Start: 02-06-2024 End: 02-06-2024 Patient encounter procedure 02/06/2024 11:00 AM EDT Office Visit [facility] [address] [place] [address] [place] [address] labs [facility] Comment on above: labs Start: 01-31-2024 End: 01-31-2024 Follow-up encounter Hematology/Oncology Comment on above: 3 month follow up [facility] Start: 01-26-2024 End: 01-26-2024 Patient encounter procedure 01/26/2024 11:00 AM EDT Office Visit [facility] [address] [place] [id number] Marcos Rios MD [address] [place] [address] [facility] Start: 01-16-2024 End: 01-16-2024 Follow-up encounter Hematology/Oncology Comment on above: 3 month follow up [facility] Start: 01-09-2024 End: 01-09-2024 Patient encounter procedure 01/09/2024 2:20 PM EDT Office Visit Colorectal Surgery [address] [facility] [address] [place], [place] [phone] [place] [address] [address] [place], [place] [phone] Est patient, 3 month follow up, , robotic LAR, DLI, surgery 08/25/23 Colorectal Surgery Comment on above: Est patient, 3 month follow up, , roboti c LAR, DLI, surgery 08/25/23 Start: 01-09-2024 End: 04-09-2024 Carcinoembryonic Ag [Mass/volume] in Serum or Plasma CEA BLD Lab Routine History of rectal cancer Expected: 01/09/2024 (Approximate), Expires: 04/09/2024 [facility] Work Phone: Comment on above: Expected: 01/09/2024 (Approximate), Expi res: 04/09/2024 Start: 01-09-2024 End: 04-09-2024 CBC W Auto Differential panel - Blood CBC + DIFF Lab Routine History of rectal cancer Expected: 01/09/2024 (Approximate), Expires: 04/09/2024 [facility] Work Phone: Comment on above: Expected: 01/09/2024 (Approximate), Expi res: 04/09/2024 Start: 01-09-2024 End: 04-09-2024 Comprehensive metabolic 2000 panel - Serum or Plasma COMP METABOLIC PANEL Lab Routine History of rectal cancer Expected: 01/09/2024 (Approximate), Expires: 04/09/2024 [facility] Work Phone: Comment on above: Expected: 01/09/2024 (Approximate), Expi res: 04/09/2024 Start: 01-09-2024 End: 04-09-2024 MISC SEND OUT TST 1 MISC SEND OUT TST 1 Lab Routine History of rectal cancer Expected: 01/09/2024 (Approximate), Expires: 04/09/2024 [facility] Work Phone: Comment on above: Expected: 01/09/2024 (Approximate), Expi res: 04/09/2024 Start: 01-09-2024 End: 01-09-2024 ambulatory 01/09/2024 10:00 AM EDT Results Only [facility] [address] [place] [address] [place] [address] [facility] Start: 11-30-2023 End: 11-30-2023 Patient encounter procedure 11/30/2023 1:00 PM EDT Office Visit Colorectal Surgery [address] [place] [address] [place] [address] [place] [address] Est pt: 3 mo f/up, robotic LAR, DLI, Colorectal Surgery Comment on above: Est pt: 3 mo f/up, robotic LAR, DLI, Start: 11-24-2023 End: 11-24-2023 Patient encounter procedure 11/24/2023 3:40 PM EDT Office Visit Colorectal Surgery [address] [facility] [address] [place], [place] [phone] Brandie Salmeron APRN.CONSUMER [employer]LECT[employer]IC RETAIL SPECIALIST [address] [place] [address] PostOp: Ileostomy Closure, Colorectal Surgery Comment on above: PostOp: Ileostomy Closure, Start: 11-07-2023 End: 02-06-2024 Carcinoembryonic Ag [Mass/volume] in Serum or Plasma CEA BLD Lab Routine History of rectal cancer Expected: 11/07/2023 (Approximate), Expires: 02/06/2024 [facility] Work Phone: Comment on above: Expected: 11/07/2023 (Approximate), Expi res: 02/06/2024 Start: 11-07-2023 End: 11-07-2023 Patient encounter procedure 11/07/2023 10:20 AM EDT Office Visit Colorectal Surgery [address] [place], [place] [phone] [place] [address] [place], [place] [phone] Est patient, hospital follow up, SBO x3 Colorectal Surgery Comment on above: Est patient, hospital follow up, SBO x3 Start: 10-28-2023 [facility] Start: 10-27-2023 Administration of prophylactic treatment [facility] Start: 10-26-2023 [facility] Start: 10-26-2023 Diagnostic radiography of abdomen [facility] Start: 10-26-2023 Referral to general surgeon [facility] Start: 10-26-2023 Hospital admission [facility] Start: 10-26-2023 [facility] Start: 10-25-2023 CT angiography of thorax CT angio chest PE protocol [facility] Start: 10-25-2023 CT Chest [facility] Start: 10-25-2023 Computed tomography of abdomen and pelvis with contrast CT abdomen pelvis w con [facility] Start: 10-25-2023 CT Abdomen and Pelvis W contrast IV [facility] Start: 10-25-2023 Bacteria identified in Blood by Culture [facility] Start: 10-25-2023 Bacteria identified in Urine by Culture [facility] Start: 10-25-2023 Blood culture for bacteria, including anaerobic screen Blood Culture [facility] Start: 10-10-2023 End: 01-09-2024 MISC SEND OUT TST 1 [facility] Work Phone: Comment on above: Expected: 10/10/2023, Expires: Start: 10-01-2023 [facility] Start: 09-30-2023 Referral to general surgeon [facility] Start: 09-30-2023 Hospital admission [facility] Start: 09-30-2023 CT Abdomen and Pelvis WO contrast [facility] Start: 09-30-2023 CT of abdomen and pelvis without contrast CT abdomen pelvis wo con [facility] Start: 08-11-2023 End: 11-10-2023 CONFIRM BLOOD TYPE [facility] Work Phone: Comment on above: Expected: 08/11/2023, Expires: Start: 07-10-2023 Advance Directive Discussion Advance Directive Discussion [facility] Start: 07-06-2023 End: 10-05-2023 Carcinoembryonic Ag [Mass/volume] in Serum or Plasma CEA BLD Lab Routine Rectal cancer (HCC) Expected: 07/06/2023, Expires: 10/05/2023 [facility] Work Phone: Comment on above: Expected: 07/06/2023, Expires: 4 Start: 07-06-2023 End: 10-05-2023 CBC W Auto Differential panel - Blood CBC + DIFF Lab Routine Rectal cancer (HCC) Expected: 07/06/2023, Expires: 10/05/2023 [facility] Work Phone: Comment on above: Expected: 07/06/2023, Expires: 4 Start: 07-06-2023 End: 10-05-2023 Comprehensive metabolic 2000 panel - Serum or Plasma COMP METABOLIC PANEL Lab Routine Rectal cancer (HCC) Expected: 07/06/2023, Expires: 10/05/2023 [facility] Work Phone: Comment on above: Expected: 07/06/2023, Expires: 4 Start: 07-06-2023 End: 06-14-2024 Ferritin [Mass/volume] in Serum or Plasma FERRITIN BLD Lab Routine Rectal cancer (HCC) Expected: 07/06/2023, Expires: 06/14/2024 [facility] Work Phone: Comment on above: Expected: 07/06/2023, Expires: Start: 07-06-2023 End: 06-14-2024 Iron and Iron binding capacity panel - Serum or Plasma IRON + TIBC Lab Routine Rectal cancer (HCC) Expected: 07/06/2023, Expires: 06/14/2024 [facility] Work Phone: Comment on above: Expected: 07/06/2023, Expires: Start: 06-26-2023 [facility] Start: 06-26-2023 [facility] Start: 06-09-2023 End: 09-08-2023 Carcinoembryonic Ag [Mass/volume] in Serum or Plasma CEA BLD Lab Routine Rectal cancer (HCC) Expected: 06/09/2023 (Approximate), Expires: 09/08/2023 [facility] Work Phone: Comment on above: Expected: 06/09/2023 (Approximate), Expi res: 09/08/2023 Start: 06-09-2023 End: 09-08-2023 CBC W Auto Differential panel - Blood CBC + DIFF Lab Routine Rectal cancer (HCC) Expected: 06/09/2023 (Approximate), Expires: 09/08/2023 [facility] Work Phone: Comment on above: Expected: 06/09/2023 (Approximate), Expi res: 09/08/2023 Start: 06-09-2023 End: 09-08-2023 Comprehensive metabolic 2000 panel - Serum or Plasma COMP METABOLIC PANEL Lab Routine Rectal cancer (HCC) Expected: 06/09/2023 (Approximate), Expires: 09/08/2023 [facility] Work Phone: Comment on above: Expected: 06/09/2023 (Approximate), Expi res: 09/08/2023 Start: 06-09-2023 End: 05-27-2024 Mri pelvis w/o & w/contrast material MRI RECTUM WO/W IVCON Radiology Routine Rectal cancer (HCC) Expected: 06/09/2023 (Approximate), Expires: 05/27/2024 [facility] Work Phone: Comment on above: Expected: 06/09/2023 (Approximate), Expi res: 05/27/2024 Start: 04-28-2023 End: 06-28-2023 CBC W Auto Differential panel - Blood CBC + DIFF Lab Routine Rectal cancer (HCC) Expected: 04/28/2023 (Approximate), Expires: 06/28/2023 [facility] Work Phone: Comment on above: Expected: 04/28/2023 (Approximate), Expi res: 06/28/2023 Start: 04-28-2023 End: 06-28-2023 Comprehensive metabolic 2000 panel - Serum or Plasma COMP METABOLIC PANEL Lab Routine Rectal cancer (HCC) Expected: 04/28/2023 (Approximate), Expires: 06/28/2023 [facility] Work Phone: Comment on above: Expected: 04/28/2023 (Approximate), Expi res: 06/28/2023 Start: 04-06-2023 [facility] Start: 04-06-2023 [facility] Start: 04-06-2023 Referral to oncologist [facility] Start: 04-06-2023 [facility] Start: 04-06-2023 [facility] Start: 04-05-2023 Referral to bridge teacher [facility] Start: 04-05-2023 Hospital admission [facility] Start: 04-05-2023 [facility] Start: 04-05-2023 End: 06-05-2023 CBC W Auto Differential panel - Blood CBC + DIFF Lab Routine Rectal cancer (HCC) Expected: 04/05/2023 (Approximate), Expires: 06/05/2023 [facility] Work Phone: Comment on above: Expected: 04/05/2023 (Approximate), Expi res: 06/05/2023 Start: 04-05-2023 End: 06-05-2023 Comprehensive metabolic 2000 panel - Serum or Plasma COMP METABOLIC PANEL Lab Routine Rectal cancer (HCC) Expected: 04/05/2023 (Approximate), Expires: 06/05/2023 [facility] Work Phone: Comment on above: Expected: 04/05/2023 (Approximate), Expi res: 06/05/2023 Start: 03-10-2023 Covid-19 Vaccine ( season) Covid-19 Vaccine ( season) [facility] Start: 03-10-2023 Covid-19 Vaccine () Covid-19 Vaccine () [facility] Start: 03-10-2023 Influenza vaccination [facility] Start: 03-06-2023 [facility] Start: 07-10-2022 ADVANCE DIRECTIVE DISCUSSION ADVANCE DIRECTIVE DISCUSSION [facility] Start: 07-10-2022 DEPRESSION ASSESSMENT DEPRESSION ASSESSMENT [facility] Start: 11-25-2020 COVID-19 VACCINE (3 - Moderna series) COVID-19 VACCINE (3 - Moderna series) [facility] Start: 10-28-2020 Covid-19 Vaccine (3 - Moderna risk series) Covid-19 Vaccine (3 - Moderna risk series) [facility] Start: 09-22-2019 Screening for malignant neoplasm of breast [facility] Start: 2018 BONE DENSITY BONE DENSITY [facility] Start: 2018 Bone Density Screening Bone Density Screening [facility] Start: 2018 Pneumococcal Vaccine: 65+ (2 - PCV) Pneumococcal Vaccine: 65+ (2 - PCV) [facility] Start: 2018 Pneumococcal Vaccine: 65+ Years (2 - PCV) Pneumococcal Vaccine: 65+ Years (2 - PCV) [facility] Start: 2018 Pneumococcal Vaccine: 65+ Years (2 of 2 - PCV) Pneumococcal Vaccine: 65+ Years (2 of 2 - PCV) [facility] Start: 2018 PNEUMOCOCCAL: 65+ (1 - PCV) PNEUMOCOCCAL: 65+ (1 - PCV) [facility] Start: 2018 PNEUMOCOCCAL: 65+ (2 - PCV) PNEUMOCOCCAL: 65+ (2 - PCV) [facility] Start: 2018 Screening for osteoporosis Bone Density Screening [facility] Start: 04-09-2016 Pneumococcal Vaccine: 65+ (3 - PCV) Pneumococcal Vaccine: 65+ (3 - PCV) [facility] Start: 04-09-2016 Pneumococcal Vaccine: 65+ (3 of 3 - PCV) Pneumococcal Vaccine: 65+ (3 of 3 - PCV) [facility] Start: 2013 RSV Vaccine (1 - 1-dose 60+ series) RSV Vaccine (1 - 1-dose 60+ series) [facility] Start: 2013 RSV Vaccine (1 - Risk 60-74 years 1-dose series) RSV Vaccine (1 - Risk 60-74 years 1-dose series) [facility] Start: 2003 SHINGRIX VACCINE (1 of 2) SHINGRIX VACCINE (1 of 2) [facility] Start: 1998 COLOGUARD (FIT-DNA) COLOGUARD (FIT-DNA) [facility] Start: 1998 Colonoscopy COLONOSCOPY [facility] Start: 1998 COLORECTAL CANCER SCREENING COLORECTAL CANCER SCREENING [facility] Start: [address] COLONOGRAPHY [facility] Start: 1998 DIABETES SCREEN DIABETES SCREEN [facility] Start: 1998 Diabetes Screening Diabetes Screening [facility] Start: 1998 FECAL OCCULT BLOOD FECAL OCCULT BLOOD [facility] Start: 1998 Lipid 1996 panel - Serum or Plasma Lipid Screening [facility] Start: 1998 Lipid panel Lipid Screening [facility] Start: 1998 LIPID SCREEN LIPID SCREEN [facility] Start: 1998 Screening for malignant neoplasm of colon [facility] Start: 1998 SIGMOIDOSCOPY SIGMOIDOSCOPY [facility] Start: 1993 Mammography [facility] Start: 1993 Screening for malignant neoplasm of breast [facility] Start: 1975 DTaP/Tdap/Td Vaccines (1 - Tdap) DTaP/Tdap/Td Vaccines (1 - Tdap) [facility] Start: 1972 Urine microalbumin profile [facility] Start: 1971 Annual PCP Team Chronic Disease Visit Annual PCP Team Chronic Disease Visit [facility] Start: 1971 BP Controlled (<130/80) BP Controlled (<130/80) [facility] Start: 1971 HEPATITIS C SCREENING HEPATITIS C SCREENING [facility] Start: 1971 Hepatitis C screening Hepatitis C Screening [facility] Start: 1964 Screening for malignant neoplasm of cervix Cervical Cancer Screening [facility] Start: 02-21-1954 COVID-19 VACCINE (#1) COVID-19 VACCINE (#1) [facility] Start: 1953 Lipid panel Lipid Panel [facility] Start: 1953 Medicare Annual Wellness Visit Medicare Annual Wellness Visit (AWV) [facility] Start: 1953 Screening for malignant neoplasm of colon [facility] Anion gap measurement [facility] Bacteria identified in Urine by Culture URINE CULTURE Microbiology Routine Dysuria 05/01/2023 11:19 AM EDT [facility] Work Phone: Basophils [#/volume] in Blood by Automated count [facility] Basophils/100 leukoc ytes in Blood by Automated count [facility] Carcinoembryonic Ag [Mass/volume] in Serum or Plasma CEA BLD Lab Routine History of rectal cancer 10/10/2023 11:40 AM EDT [facility] Work Phone: Closure enterostomy lg/small intestine CLOSURE ILEOSTOMY Attention to ileostomy (HCC) Partial small bowel obstruction (HCC) [facility] CT SIM PLANNING RADI ATION ONCOLOGY CT SIM PLANNING RADIATION ONCOLOGY Radiology Routine Rectal adenocarcinoma (HCC) Ordered: 03/23/2023 [facility] Work Phone: Comment on above: Ordered: 03/23/2023 End: 04-05-2024 EGD DIAGNOSTIC EGD DIAGNOSTIC Endoscopy Routine Dyspepsia 1 Occurrences starting 04/06/2023 until 04/05/2024 [facility] Work Phone: Comment on above: 1 Occurrences starting 04/06/2023 until 04/05/2024 Eosinophils/100 leukocytes in Blood by Automated count [facility] Erythrocyte distribu tion width [Ratio] by Automated count [facility] Erythrocytes [#/volu me] in Blood [facility] Glucose measurement estimated from glycated hemoglobin [facility] Guidance for removal of CV catheter with port from Chest IR PORTOCATH REMOVAL Radiology Routine Rectal adenocarcinoma (HCC) Ordered: 12/14/2023 [facility] Work Phone: Comment on above: Ordered: 12/14/2023 Hematocrit [Volume Fraction] of Blood [facility] Hemoglobin [Mass/vol ume] in Blood [facility] IR PORTOCATH PLACEMENT IR PORTOC ATH PLACEMENT Radiology KARYN Rectal cancer (HCC) Ordered: 04/05/2023 [facility] Work Phone: Comment on above: Ordered: 04/05/2023 Leukocytes [#/volume ] corrected for nucleated erythrocytes in Blood by Automated coun [facility] Leukocytes [#/volume ] in Blood [facility] Lymphocytes [#/volum e] in Blood by Automated count [facility] Lymphocytes/100 leukocytes in Blood by Automated count [facility] MCH [Entitic mass] b y Automated count [facility] MCHC [Mass/volume] b y Automated count [facility] MCV [Entitic volume] by Automated count [facility] Monocytes [#/volume] in Blood by Automated count [facility] Monocytes/100 leukoc ytes in Blood by Automated count [facility] End: 04-05-2024 Mri pelvis w/o & w/contrast material MRI RECTUM WO/W IVCON Radiology Routine Rectal adenocarcinoma (HCC) 1 Occurrences starting 03/07/2023 until 04/05/2024 [facility] Work Phone: Comment on above: 1 Occurrences starting 03/07/2023 until 04/05/2024 Neutrophils [#/volum e] in Blood by Automated count [facility] Neutrophils/100 leukocytes in Blood by Automated count [facility] Nucleated erythrocyt es [Presence] in Blood by Automated count [facility] Work Phone: Patient referral [facility] Work Phone: Platelet mean volume [Entitic volume] in Blood by Automated count [facility] Platelets [#/volume] in Blood [facility] UA DIP B/O UA DIP B/O Lab R outine Dysuria Ordered: 05/01/2023 [facility] Work Phone: Comment on above: Ordered: 05/01/2023 [facility] Immunizations Immunization Date Immunization Notes Care Provider [facility] 08-08-2021 zoster vaccine recombinant Charles Kuns Other [facility] 02-26-2021 zoster vaccine recombinant Charles Kuns Other [facility] 09-30-2020 COVID-19 Vaccine Moderna - Documentation Purposes Only Caroline Rangel II Other [facility] 09-29-2020 COVID-19 mRNA Bivalent Booster (Moderna) DO Charles Kuns Work Phone: [facility] 09-03-2020 COVID-19 Vaccine Moderna - Documentation Purposes Only Caroline Rangel II Other [facility] 05-07-2019 influenza nasal, unspecified formulation [facility]/[place] Work Phone: [facility] 05-07-2019 influenza, injectable, quadrivalent, preservative free DO Charles Kuns Work Phone: [facility] 05-07-2019 influenza, injectable, quadrivalent, contains preservative Caroline Rangel II Other [facility] 05-07-2019 influenza virus vaccine, unspecified formulation Colleen Solorio RN Work Phone: [facility] 04-18-2017 influenza, injectable, quadrivalent, preservative free DO Charles Bazzi Work Phone: [facility] 04-18-2017 influenza, injectable, quadrivalent, contains preservative Caroline Rangel II Other [facility] 04-09-2017 influenza, seasonal, injectable Charles R Dixie Work Phone: [facility] Comment on above: Series: 04-09-2015 pneumococcal polysaccharide vaccine, 23 valent Charles R Kuns Work Phone: [facility] Comment on above: Series: 04-09-2014 influenza, injectable, madin claire canine kidney, preservative free Charles R Dixie Work Phone: [facility] 04-09-2014 influenza, seasonal, injectable, preservative free JOSE MARIA Hudson MD Work Phone: [facility] 04-09-2014 pneumococcal polysaccharide vaccine, 23 valent Charles R Kuns Work Phone: [facility] 11-04-2013 zoster vaccine, live Caroline Rangel II Other [facility] 07-25-2013 pneumococcal polysaccharide vaccine, 23 valent Caroline Hillle II Other [facility] 07-13-2013 influenza virus vaccine, unspecified formulation DO Charles Bazzi Work Phone: [facility] 07-13-2013 influenza virus vaccine, split virus (incl. purified surface antigen) Caroline Rangel II Other [facility] NEGATED: Highlighted row has not occurred! 9 influenza, seasonal, injectable Patient Objection Caroline Rangel II Other [employer] Other Payers Date Payer Category Payer Self-pay [id number] 2021 Unknown [id number] 2018 Medicare [id number] [id number] 1959 Medicare [id number] 2.1 [id number] 1959 Unknown [id number] 1953 Unknown [id number] 2.16.840.1.883062.3.579.2.593 1953 Unknown [id number] 2.16.840.1.560506.3.579.2.593 1953 Unknown [id number] 2.16.840.1.005103.3.579.2.593 1953 Unknown [id number] 2.16.840.1.491967.3.579.2.356 1953 Unknown [id number] 2.16.840.1.657835.3.579.2.356 1953 Unknown [id number] 2.16.840.1.874003.3.579.2.356 1953 Unknown [id number] 2.16.840.1.604321.3.579.2.1244 1953 Unknown [id number] 2.16.840.1.175490.3.579.2.1259 1953 Unknown [id number] 2.16.840.1.216566.3.579.2.1259 1953 Unknown [id number] 2.16.840.1.992232.3.579.2.1259 1953 Unknown [id number] 2.16.840.1.589191.3.579.2.1259 1953 Unknown [id number] 2.16.840.1.239719.3.579.2.1259 1953 Unknown [id number] 2.16.840.1.198601.3.579.2.1259 1953 Unknown [id number] 2.16.840.1.480897.3.579.2.9 1953 Unknown [id number] 2.16.840.1.685104.3.579.2.9 1953 Unknown [id number] 2.16.840.1.331093.3.579.2.1258 1953 Unknown [id number] 2.16.840.1.075613.3.579.2.1259 1953 Unknown [id number] 2.16.840.1.838981.3.579.2.1258 1953 Unknown [id number] 2.16.840.1.999625.3.579.2.1258 1953 Unknown [id number] 2.16.840.1.066867.3.579.2.1258 1953 Unknown [id number] 2.16.840.1.916236.3.579.2.196 1953 Unknown [id number] 2.16.840.1.666170.3.579.2.196 1953 Unknown [id number] 2.16.840.1.564181.3.579.2.196 1953 Unknown [id number] 2.16.840.1.899486.3.579.2.196 Medicare [place] MediBlue Dual Adv VOC [id number] Unknown [employer] [id number] 10 Unknown [id number] 2.16.840.1.993586.3.579.2.531 Unknown [id number] 2.16.840.1.479790.3.579.2.531 Unknown [id number] 2.16.840.1.723444.3.579.2.531 Unknown [id number] 2.16.840.1.578978.3.579.2.531 Unknown [id number] 2.16.840.1.969248.3.579.2.531 Unknown [id number] 2.16.840.1.468761.3.579.2.531 Unknown [id number] 2.840.1.670804.3.579.2.531 Unknown [id number] 2.16.840.1.720341.3.579.2.531 Social History Date Type Detail Facility Start: 03-08-2023 End: 01-12-2024 Sex Assigned At [facility] Start: 06-02-2021 End: 05-31-2024 Tobacco smoking status NHIS Never smoked tobacco (finding) [facility] Start: 1955 Sex Assigned At Female F [facility] Start: 03-08-2023 End: 01-12-2024 Occasional alcohol use Occasional alcohol use [place] [facility] Tobacco smoking stat us NEIS Tobacco smoking consumption unknown [facility] Start: 1955 Sex Assigned At Not on file [facility] History of tobacco use Passive smoker [facility] Start: 01-17-2023 End: 03-08-2023 Tobacco use and exposure Smokeless tobacco non-user [facility] Start: 03-08-2023 End: 02-21-2024 Alcohol intake Current drinker of alcohol (finding) [facility] Start: 03-08-2023 Alcohol Comment socially [facility] Adult Depression Screening Assessment 0 [facility] Start: 03-14-2023 Alcohol Comment 1 drink weekly if th at [facility] Start: 04-18-2023 Alcohol Comment socially a cou ple times per month [facility] Start: 07-20-2023 Alcohol Comment occasional [facility] Work Phone: Start: 07-15-2023 End: 07-25-2023 Exposure to SARS-CoV-2 (event) Not sure [facility] Start: 08-11-2023 Alcohol Comment 2 times a month if t hat [facility] (I/We) worried wheth er (my/our) food would run out before (I/we) got money to buy more. DK or Refused [facility] Start: 09-22-2023 End: 10-10-2023 Alcohol intake Ex-drinker (finding) [facility] Has the [facility], [employer], or water [employer] threatened to shut off services in your home in past 12Mo No [facility] (I/We) worried wheth er (my/our) food would run out before (I/we) got money to buy more. Never true [facility] Start: 05-22-2024 End: 07-17-2024 Sex Female (finding) [facility] How often to you hav e a drink containing alcohol? 2-4 times a month [facility] How many standard drinks containing alcohol do you have on a typical day? 1 or 2 [facility] How often do you hav e 6 or more drinks on 1 occasion? Never [facility] Start: 01-17-2023 Alcohol Comment 2-4 times/yannick h. Coffee: 2-3 cups per day [facility] Medical Equipment Procedure Code Equipment Code Equipment Origin al Text Equipment Identifier Dates Insertion of central venous catheter (CVC) with subcutaneous port for chemotherapy Vascular port/catheter ()[id number])[facility] [id number] FDA Start: 06-26-2023 TVTO OBTURATOR SYSTEM FDA [...] Facility 10-28-2023 Functional status Patient at [facility] Work Phone: 10-01-2023 Functional status Patient at [facility] Work Phone: 04-06-2023 Functional status Patient at [facility] Work Phone: Mental Status Date Assessment Result Facility 10-28-2023 Cognitive function Cognitive Sta tus Patient at [facility] Work Phone: 10-01-2023 Cognitive function Cognitive Sta tus Patient at [facility] Work Phone: 04-06-2023 Cognitive function Cognitive Sta tus Patient at [facility] Work Phone: Clinical Notes 02-11-2022 to 05-30-2024 Note Date & Type Note Facility 05-30-2024 Evaluation note Diagnosis Onset Date Resolution Infected finger acute May 30, 2024 11:20am Cellulitis of right middle finger inactive May 30, 2 024 11:20am Infected finger acute June 11, 2024 10:34am Cellulitis of right middle finger inactive June 11 10:34am Other specified postprocedural states noneactive June 112023 10:34am Anxiety and depression acute 2023 12:35pm Colorectal cancer acute Decemb2023 12:35pm Hyperlipidemia acute June 112023 12:35pm Hypertension acute June 12:35pm Infected finger acute June 11, 2024 12:35pm Infected finger acute June 25, 2024 8:10am Cellulitis of right middle finger inactive June 25, 2 024 8:10am Other specified postprocedural states noneactive June 092023 8:10am Infected finger acute July 172024 8:19am Other specified postprocedural states noneactive July 8:19am [facility] Work Phone: [phone] 138-302310-30-2024 Instructions* Patient Instructions* LetColleen ruvalcaba LPN - 05/08/2024 2:04 PM EDT Follow up with Dr. Corona in August prior Signatera prior to follow up documented in this encounter[facility] NoteHNO ID: [id number] Author: TAPAN CORONA MD Service: ? Author Type: Physician Type: Progress Notes Filed: 05/08/2024 14:21 Note Text: PATIENT NAME: Evan Gill CLINIC NO.: [id number] ATTENDING PHYSICIAN: Tapan Corona MD DATE OF SERVICE: May 08, 2024 Some of the elements of this note have been copied from my previous progress note dated 02/06/2024. All the information has been reviewed carefully. Dear Dr. Bazzi here is an update on a follow up visit on female Evan Gill at the clinic May 08, 2024 Diagnosis: MRI staged T3c,N+M0- Adenocarcinoma of [...] Ileostomy closure and Flex sig 5. Signatera 10/2023, 01/2024- Negative. HPI: Evan Gill is a 68 year old year old female here for follow up. She is doing well overall and denies any fevers and or chills. PAST MEDICAL HISTORY Diagnosis Date Constipation Diverticulosis Malignant melanoma (HCC) Rectal cancer (HCC) Social History Tobacco Use Smoking status: Never Passive exposure: Past Smokeless tobacco: Never Vaping Use Vaping status: Never Used Substance Use Topics Alcohol use: Yes Comment: [...] tingling of hands/feet. No weakness. PHYSICAL EXAMINATION: There were no vitals taken for this visit. Wt 61.8 kg (136 lb 3.2 oz) [...] : Deferred LABS: Glucose (mg/dL) Date Value 02/06/2024 99 Potassium (mmol/L) Date Value 02/06/2024 4.5 Sodium (mmol/L) Date Value 02/06/2024 144 Chloride (mmol/L) Date Value 02/06/2024 106 CO2 (mmol/L) Date Value 02/06/2024 26 Creatinine (mg/dL) Date Value 02/06/2024 0.75 BUN (mg/dL) Date Value 02/06/2024 17 Anion Gap (mmol/L) Date Value 02/06/2024 12 Calcium, Total (mg/dL) Date Value 02/06/2024 9.5 Protein, Total (g/dL) Date Value 02/06/2024 6.5 Albumin (g/dL) Date Value 02/06/2024 4.1 Bilirubin, Total (mg/dL) Date Value 02/06/2024 0.3 Alkaline Phosphatase (U/L) Date Value 02/06/2024 94 AST (U/L) Date Value 02/06/2024 15 ALT (U/L) Date Value 02/06/2024 12 WBC Date Value Ref Range Status 02/06/2024 [...] Final MCH Date Value Ref Range Status 02/06/20 (more content not included)...[facility]10-30-2024 History of Present illness Narrative* Tapan Corona MD - 05/08/2024 1:56 PM EDT Images from the original note were not included. PATIENT NAME: Evan Gill [facility] NO.: [id number] ATTENDING PHYSICIAN: Tapan Corona MD DATE OF SERVICE: May 08, 2024 Some of the elements of this note have been copied from my previous progress note dated 02/06/2024. All the information has been reviewed carefully. Dear Dr. Bazzi here is an update on a follow up visit on female Evan Gill at the clinic 2023 Diagnosis: MRI staged T3c,N+M0- Adenocarcinoma of [...] Ileostomy closure and Flex sig 5. Signatera 10/2023, 01/2024- Negative. HPI: Evan Gill is a 68 year old year old female here for follow up. She is doing well overall and denies any fevers and or chills. PAST MEDICAL HISTORY Diagnosis Date Constipation Diverticulosis Malignant melanoma (HCC) Rectal cancer (HCC) Social History Tobacco Use Smoking status: Never Passive exposure: Past Smokeless tobacco: Never Vaping Use Vaping status: Never Used Substance Use Topics Alcohol use: Yes Comment: [...] tingling of hands/feet. No weakness. PHYSICAL EXAMINATION: There were no vitals taken for this visit. Wt 61.8 kg (136 lb 3.2 oz) [...] : Deferred LABS: Glucose (mg/dL) Date Value 02/06/2024 99 Potassium (mmol/L) Date Value 02/06/2024 4.5 Sodium (mmol/L) Date Value 02/06/2024 144 Chloride (mmol/L) Date Value 02/06/2024 106 CO2 (mmol/L) Date Value 02/06/2024 26 Creatinine (mg/dL) Date Value 02/06/2024 0.75 BUN (mg/dL) Date Value 02/06/2024 17 Anion Gap (mmol/L) Date Value 02/06/2024 12 Calcium, Total (mg/dL) Date Value 02/06/2024 9.5 Protein, Total (g/dL) Date Value 02/06/2024 6.5 Albumin (g/dL) Date Value 02/06/2024 4.1 Bilirubin, Total (mg/dL) Date Value 02/06/2024 0.3 Alkaline Phosphatase (U/L) Date Value 02/06/2024 94 AST (U/L) Date Value 02/06/2024 15 ALT (U/L) Date Value 02/06/2024 12 WBC Date Value Ref Range Status 02/06/2024 [...] Range Status 02/06/2024 6.6 % Final Abs [place] Date Value Ref Range Status 02/06/2024 0.29 [...] was performed on complicated by SBO. She had a complete Path CR. Signatera 10/2023 and 01/2024 negative Will check signatera and labs today See back in 3 months for surveillance and also repeat Signatera Thank you for the kind referral. If there are any questions and or concerns please do not hesitate to contact me at [phone]. Tapan Corona MD Hematology/Medical Oncology [facility] spent a total of 30 minutes on the date of the service which included preparing to see the patient, [id number] patient care, completing clinical documentation, obtaining and/or reviewing separately obtained history, performing a medically appropriate examination, counseling and educating the pat ient/family/caregiver, and ordering medications, tests, or procedures. CC: documented in this encounterSelect [facility] NoteHNO ID: [id number] Author: Del HUDSON MD Service: ? Author Type: Physician Type: Progress Notes Filed: 04/18/2024 08:40 Note Text: Radiation Oncology - Follow Up Note PATIENT [...] fractions ELAPSED TIME: 42 days. INTERVAL HISTORY: Patient reports she has been doing well. Bowel function fairly good occasional constipation alternating with more frequent stools. No bleeding. No pain. No bladder related issues. 08/25/2023 robotic laparoscopic colectomy. Palpable finding mid rectum. No liver or peritoneal findings intraoperatively. Pathology demonstrating: AMENDED REPORT DETAIL [facility] Amended: 09/13/2023 3:21 PM This report is being amended to reflect a change in the Synoptic Report and Gross Description armijo. The changes are as follows: changed to tumor location in the Synoptic Report from Cannot be determined to Rectum / Entirely below anterior peritoneal reflection and added The ulcer is located entirely below the anterior peritoneal reflection to the Gross Description. Dr. Singer was notified of this change by e-mail on 09/13/2023. JEL 09/13/2023 Comment: Edited results: Previously reported on 08/31/2023 at 6:21 PM EST. FINAL DIAGNOSIS A. Sigmoid colon and rectum, resection: - No evidence of residual invasive adenocarcinoma (see synoptic report). - Fifteen lymph nodes, negative for malignancy (0/15). B. Additional distal margin, excision: - Segment of rectum with no diagnostic abnormality. JEL 08/30/2023 Amendment electronically signed by Oscar Marshall MD on 09/13/2023 at 3:24 PM Block for additional Biomarkers/Molecular studies LAB No evidence of residual invasive adenocarcinoma Synoptic Report COLON AND RECTUM: Resection, Including [...] 1, 8th Ed.) it is the managing physician?s responsibility to establish the final pathologic stage based upon all pertinent information, including but potentially not limited to this pathology report. TNM Descriptors y (post-treatment) pT Category pT0 pN Category pN0 . ALLERGIES No Known Allergies MEDICATIONS: ondansetron orally disintegrating (ZOFRAN ODT) 8 mg disintegrating tablet Take 1 tablet by mouth every 8 hours as needed for nausea/vomiting. omeprazole (PRILOSEC) 40 mg capsule Take 40 mg by mouth once daily. vortioxetine (TRINTELLIX) 10 mg tablet Take 10 mg by mouth once daily. oxybutynin ER (DITROPAN XL) 15 mg 24 hr Extended Rel Tab Take 15 mg by mouth. aspirin, enteric coated (ASPIRIN, ENTERIC COATED) 81 mg EC tablet Take 81 mg by mouth once daily. Amoxicillin 500 mg tablet FOR DENTAL WORK (Patient not taking: Reported on 02/06/2024) REVIEW OF SYSTEMS: Review of Systems: PAIN ASSESSMENT: Negative for pain, history of chronic pain, or current treatment for a chronic pain condition. NECK: Negative for goiter, pain or significant neck swelling GI: See H (more content not included)...[facility]10-02-2024 History of Present illness Narrative* Del Hudson MD - 04/10/2024 9:58 AM EDT Radiation Oncology - Follow Up Note PATIENT [...] fractions ELAPSED TIME: 42 days. INTERVAL HISTORY: Patient reports she has been doing well. Bowel function fairly good occasional constipation alternating with more frequent stools. No bleeding. No pain. No bladder related issues. 08/25/2023 robotic laparoscopic colectomy. Palpable finding mid rectum. No liver or peritoneal findings intraoperatively. Pathology demonstrating: AMENDED REPORT DETAIL LAB Amended: 09/13/2023 3:21 PM This report is being amended to reflect a change in the Synoptic Report and Gross Description armijo. The changes are as follows: changed to tumor location in the Synoptic Report from Cannot be determined to Rectum / Entirely below anterior peritoneal reflection and added The ulcer is located entirely below the anterior peritoneal reflection to the Gross Description. Dr. Singer was notified of this change by e-mail on 09/13/2023. JEL 09/13/2023 Comment: Edited results: Previously reported on 08/31/2023 at 6:21 PM EST. FINAL DIAGNOSIS A. Sigmoid colon and rectum, resection: - No evidence of residual invasive adenocarcinoma (see synoptic report). - Fifteen lymph nodes, negative for malignancy (0/15). B. Additional distal margin, excision: - Segment of rectum with no diagnostic abnormality. JEL 08/30/2023 Amendment electronically signed by Oscar Marshall MD on 09/13/2023 at 3:24 PM Block for additional Biomarkers/Molecular studies LAB No evidence of residual invasive adenocarcinoma Synoptic Report COLON AND RECTUM: Resection, Including [...] (post-treatment) pT Category pT0 pN Category pN0 . ALLERGIES No Known Allergies MEDICATIONS: ondansetron orally disintegrating (ZOFRAN ODT) 8 mg disintegrating tablet Take 1 tablet by mouth every 8 hours as needed for nausea/vomiting. omeprazole (PRILOSEC) 40 mg capsule Take 40 mg by mouth once daily. vortioxetine (TRINTELLIX) 10 mg tablet Take 10 mg by mouth once daily. oxybutynin ER (DITROPAN XL) 15 mg 24 hr Extended Rel Tab Take 15 mg by mouth. aspirin, enteric coated (ASPIRIN, ENTERIC COATED) 81 mg EC tablet Take 81 mg by mouth once daily. Amoxicillin 500 mg tablet FOR DENTAL WORK (Patient not taking: Reported on 02/06/2024) REVIEW OF SYSTEMS: Review of Systems: PAIN ASSESSMENT: Negative for pain, history of chronic pain, or current treatment for a chronic pain condition. NECK: Negative for goiter, pain or significant neck swelling GI: See HPI : SEE HPI MUSCULOSKELETAL: Negative for joint pain or swelling, back pain or muscle pain NEURO: No history of headaches, syncope, paralysis, seizures or tremors The remainder of the review of systems is negative. PHYSICAL EXAM: 04/10/24 0956 BP: 140/72 Pulse: 62 Resp: 16 Temp: 36.7 C (98 F) TempSrc: Temporal SpO2: 99% Weight: 68.8 kg (151 lb 10.8 oz) KPS: 100 General Appearance: Alert and oriented. No acute distress. Rectal: Deferred Musculoskeletal: No edema. Normal ROM in extremities. No bone or spine tenderness. Neuro: Speech fluent. Gait normal. No focal deficits. Skin: No rashes noted Lymphatics: No palpable lymphadenopathy. ASSESSMENT AND PLAN: MRI staged T3c,N+M0- Adenocarcinoma of the mid-low rectum Doing well without any significant clinical issues. She has further follow-up with surgery and medical oncology. I will plan to see her back in 6 months for follow-up. Signed by: Del Hudson MD cc: Charles Bazzi, DO [address] [place] [id number] No referring provider defined for this encounter. documented in this encounterSelect [facility] Telephone encounter Note * Telephone Encounter - Kari Carrillo RN - 02/21/2024 11:23 AM EDT Pt notified of negative signatera result and denies questions, needs or concerns at this time. Kari Carrillo RN [facility]08-14-2024 Miscellaneous Notes* Telephone Encounter - Kari Carrillo RN - 02/21/2024 11:23 AM EDT Pt notified of negative signatera result and denies questions, needs or concerns at this time. Kari Carrillo RN documented in this encounterSelect [facility]-2024 Telephone encounter Note * Telephone Encounter - Justin Martin - 02/06/2024 2:18 PM EDT Called patient and scheduled labs, signatera and 3 month follow up in [place] with Cole for 05/08 [facility]07-30-2024 Miscellaneous Notes* Telephone Encounter - Justin Martin - 02/06/2024 2:18 PM EDT Called patient and scheduled labs, signatera and 3 month follow up in [place] with Cole for 05/08 * Telephone Encounter - Jessika Georges - 02/06/2024 1:45 PM EDT Images from the original note were not included. documented in this encounterSelect [facility]-2024 Telephone encounter Note * Telephone Encounter - Jessika Georges - 02/06/2024 1:45 PM EDT Images from the original note were not included. [facility]07-30-2024 NoteHNO ID: [id number] Author: TAPAN CORONA MD Service: ? Author Type: Physician Type: Progress Notes Filed: 02/06/2024 11:44 Note Text: PATIENT NAME: Evan Gill CLINIC NO.: [id number] ATTENDING PHYSICIAN: Tapan Corona MD DATE OF SERVICE: February 06, [...] 4 oz (67.7kg) SpO2 98% BMI 25.61 kg/(m2). Wt 61.8 kg (136 lb 3.2 oz) [...] Range Status 02/06/2024 36.0 36.0 - 46.0 (more content not included)...[facility]07-30-2024 History of Present illness Narrative* Tapan Corona MD - 02/06/2024 11:34 AM EDT Images from the original note were not included. PATIENT NAME: Evan Gill CLINIC NO.: [id number] ATTENDING PHYSICIAN: Tapan Corona MD DATE OF SERVICE: February 06, [...] 5' 4.016 (1.63m) Wt 149 lb 4 oz(67.7kg) SpO2 98% BMI 25.61 kg/(m^2). Wt 61.8 [...] Range Status 02/06/2024 6.6 % Final Abs [place] Date Value Ref Range Status 02/06/2024 0.29 [...] was performed on complicated by SBO. She had a complete Path CR. Signatera 10/2023 negative Will check signatera and labs today See back in 3 months for surveillance and also repeat Signatera Thank you for the kind referral. If there are any questions and or concerns please do not hesitate to contact me at [phone]. Tapan Corona MD Hematology/Medical Oncology [facility] spent a total of 30 minutes on the date of the service which included preparing to see the patient, [id number] patient care, completing clinical documentation, obtaining and/or reviewing separately obtained history, performing a medically appropriate examination, counseling and educating the pat ient/family/caregiver, and ordering medications, tests, or procedures. CC: documented in this encounterSelect [facility]-2024 Telephone encounter Note * Telephone Encounter - Cierra Lindquist RN - 01/16/2024 1:25 PM EDT Returned call. She states that at her [...] office back with any questions or concerns. [facility]07-09-2024 Miscellaneous Notes* Telephone Encounter - Cierra Lindquist RN - 01/16/2024 1:25 PM EDT Returned call. She states that at her [...] office back with any questions or concerns. * Telephone Encounter - Amber Dhaliwal - 01/16/2024 11:30 AM EDT Patient called in and has a small opening at her surgical site. Patient had a reversal with Dr. Sullivan November 05. Contact# [phone] documented in this encounterSelect [facility]07-[facility]-2024 Telephone encounter Note * Telephone Encounter - Amber Dhaliwal - 01/16/2024 11:30 AM EDT Patient called in and has a small opening at her surgical site. Patient had a reversal with Dr. Sullivan November 05. Contact# [phone] [facility]07-[facility]-20[facility] History of Present illness Narrative* Laisha Singer MD - 01/09/2024 2:20 PM EDT COLORECTAL SURGERY January 09, 2024 Evan Gill Chief Complaint: follow up visit History of Present Illness: Evan Gill is a 68 year old female presents to the office for a follow up evaluation after undergoing a Flexible Sigmoidoscopy, Ileostomy Closure on 11/08/2023. She was last seen in the office withMaki Salmeron NP on 11/24/23. H/o rectal cancer [...] stenosis, but able to pass a digit. Rock Crusher present: Yes, KAYA Sykessecond watch sergeant Assessment and Plan: Evan Gill is a [...] which included preparing to see the patient, [id number] patient care, completing clinical documentation, obtaining and/or reviewing separately obtained history, performing a medically appropriate examination, counseling and educating the pat ient/family/caregiver, and care coordination (not separately reported). Laisha Singer MD Colorectal Surgery documented in this encounterSelect [facility]07-[facility]-2024 NoteHNO ID: [id number] Author: LAISHA SINGER MD Service: ? Author Type: Physician Type: Progress Notes Filed: 01/09/2024 15:09 Note Text: COLORECTAL SURGERY January 09, 2024 Evan Gill [...] BP Position: Sitting) Pulse 64 Temp 36.6 ?C (97.8 ?F) Wt 64 kg (141 lb) SpO2 99% BMI 24.20 kg/m? General Appearance: Well appearing, alert, in no [...] stenosis, but able to pass a digit. Rock Crusher present: Yes, KAYA Sykessecond watch sergeant Assessment and Plan: Evan Gill is a 68 year old female presents to the office for a follow up evaluation after undergoing a Flexible Sigmoidoscopy, Ileostomy Closure on (more content not included)...[facility]07-01-2024 Telephone encounter Note* Telephone Encounter - Colleen Solorio RN - 01/08/2024 10:36 AM EDT Pt calls stating she received a call from [employer] to schedule a date to come out [...] just do it in the office with herother labs that day. Colleen Solorio RN [facility] Work Phone: [phone]) [phone] Miscellaneous Notes* Telephone Encounter - Colleen Solorio RN - 01/08/2024 10:36 AM EDT Pt calls stating she received a call from [facility] to schedule a date to come out [...] just do it in the office with herother labs that day. Colleen Solorio RN documented in this encounter[facility] Telephone encounter Note * Telephone Encounter - Colleen Solorio RN - 12/20/2023 11:29 AM EDT Pt calls stating she's scheduled to have a consult with on 01/16 to have port removed. Colleen Solorio RN [facility] Work Phone: 1(817) 426-513406-12-2024 Miscellaneous Notes* Telephone Encounter - Colleen Solorio RN - 12/20/2023 11:29 AM EDT Pt calls stating she's scheduled to have a consult with on 01/16 to have port removed. Colleen Solorio RN * Telephone Encounter - Kristin Martinez - 12/20/2023 10:35 AM EDT Called Evan to see if she had gotten their message to call to schedule. She did not so I gave hertheir phone number to call and get that scheduled. * Telephone Encounter - Kristin Martinez - 12/19/2023 9:14 AM EDT Order was received and they did call patient. Waiting on Rhondas response to get scheduled. * Telephone Encounter - Kristin Martinez - 12/18/2023 9:50 AM EDT Refaxed order 12/18/2023 at 9:50 am. I was told as soon as they get the order they will call the patient. * Telephone Encounter - Kristin Martinez - 12/14/2023 9:13 AM EDT Faxed order to , will call office to make sure they got it and scheduling information. * Telephone Encounter - Prachi Gill RN - 12/13/2023 9:31 AM EDT Please sign order. Thanks!! Prachi Gill RN * Telephone Encounter - Kristin Martinez - 12/13/2023 8:52 AM EDT Hi there, I would be happy to get this removal started, could you please enter an order for me? Thank you Kristin * Telephone Encounter - Prachi Gill, KAYA - 12/13/2023 8:26 AM EDT Please arrange for port removal. Prachi Gill RN * Telephone Encounter - Tapan Corona MD - 12/12/2023 5:58 PM EDT Yes. Please remove * Telephone Encounter - Prachi Gill, RN - 12/12/2023 8:25 AM EDT Pt is wondering when she can get her port removed? She had it placed for 5FU which she was unable to tolerate. Is it ok to have this removed at this point? Even at her inpatient admissions/surgeries,they have not used her port. Please advise. Thank you Prachi Gill, RN documented in this encounterSelect [facility]24 Telephone encounter Note * Telephone Encounter - Kristin Martinez - 12/20/2023 10:35 AM EDT Called Evan to see if she had gotten their message to call to schedule. She did not so I gave hertheir phone number to call and get that scheduled. [facility]06-11-2024 Telephone encounter Note* Telephone Encounter - Kristin Martinez - 12/19/2023 9:14 AM EDT Order was received and they did call patient. Waiting on Kathrynas response to get scheduled. [facility]06-10-2024 Telephone encounter Note* Telephone Encounter - Kristin Martinez - 12/18/2023 9:50 AM EDT Refaxed order 12/18/2023 at 9:50 am. I was told as soon as they get the order they will call the patient. [facility]06-06-2024 Telephone encounter Note* Telephone Encounter - Kristin Martinez - 12/14/2023 9:13 AM EDT Faxed order to , will call office to make sure they got it and scheduling information. [facility]06-05-2024 Telephone encounter Note* Telephone Encounter - Prachi Gill RN - 12/13/2023 9:31 AM EDT Please sign order. Thanks!! Prachi Gill RN [facility]06-05-2024 Telephone encounter Note* Telephone Encounter - Kristin Martinez - 12/13/2023 8:52 AM EDT Hi there, I would be happy to get this removal started, could you please enter an order for me? Thank you Kristin [facility]06-05-2024 Telephone encounter Note* Telephone Encounter - Prachi Gill RN - 12/13/2023 8:26 AM EDT Please arrange for port removal. Prachi Gill RN [facility]06-04-2024 Telephone encounter Note* Telephone Encounter - Tapan Corona MD - 12/12/2023 5:58 PM EDT Yes. Please remove [facility]06-04-2024 Telephone encounter Note* Telephone Encounter - Prachi Gill RN - 12/12/2023 8:25 AM EDT Pt is wondering when she can get her port removed? She had it placed for 5FU which she was unable to tolerate. Is it ok to have this removed at this point? Even at her inpatient admissions/surgeries,they have not used her port. Please advise. Thank you Prachi Gill, RN [facility]05-17-2024 History of Present illness Narrative* Brandie Salmeron APRN.CONSUMER ELECTRONIC RETAIL SPECIALIST - 11/24/2023 3:40 PM EDT COLORECTAL SURGERY November 24, 2023 Evan Gill 68 year old This consult was requested by Dr. Singer and my final recommendations will be communicated to the requesting health care provider by way of the shared medical record for internal providers or letter [employer] for external providers. Chief Complaint: [...] increasing to 200 mg 3 times daily, willdiscuss with Dr. Singer. Denies fevers and chills. Denies nausea out of the ordinary from her baseline(has been nauseated occasionally since chemotherapy) in the morning, this has not worsened, no emesi s. Bowel movements are small and semiformed, small-volume, [...] hot shower and put heating pad on, laterin the day she felt a sudden gush [...] Surrounding tissue soft, scant serous drainage. No evidenceof a seroma at this time. Assessment Assessment and Plan: Evan Gill is a 68 year old female s/p a Flexible Sigmoidoscopy, Ileostomy Closure on 11/08/2023. -doing well post-op, expected recovery course. -OK to slowly advance diet as tolerated. -continue lifting and activity restrictions for 4-6 weeks post-op. Fiber supplement daily for smallfrequent bowel movements. -OK to increase gabapentin to 200mg TID for nerve pain concern. Will discuss penitentiary management with Dr. Singer. -continue probiotics for [...] and/or complications of treatment plan: logan Salmeron APRN.CNP Colorectal Surgery documented in this encounterSelect [facility]05-17-2024 NoteHNO ID: [id number] Author: BRANDIE SALMERON APRN.CNP Service: ? Author Type: Nurse Practitioner Type: Progress Notes Filed: 11/27/2023 14:39 Note Text: COLORECTAL SURGERY November 24, 2023 Evan Gill 68 year old This consult was requested by Dr. Singer and my final recommendations will be communicated to the requesting health care provider by way of the shared medical record for internal providers or letter via the [employer] for external providers. Chief Complaint: [...] Position: Sitting) Pulse (!) 57 Temp 36.3 ?C (97.3 ?F) Ht 162.6 cm (5' 4 ) Wt 64 kg (141 lb) BMI 24.20 kg/m? General Appearance: Well appearing, alert (more content not included)... [facility]05-14-2024 Telephone encounter Note* Telephone Encounter - Cierra Lindquist RN - 11/21/2023 1:07 PM EDT Orders placed. [facility]05-14-2024 Miscellaneous Notes* Telephone Encounter - Cierra Lindquist RN - 11/21/2023 1:07 PM EDT Orders placed. documented in this encounterSelect [facility]-06-2024 Telephone encounter Note * Telephone Encounter - Colleen Solorio RN - 11/13/2023 3:49 PM EDT DISCHARGE CALL BACK Today's date: November 13, 2023 Notified of Pt discharge by: hosp ADT folder Patient discharged on 11/10/23 from [facility] to [facility] Primary Cancer Diagnosis: rectal cancer Admitting Diagnosis: small bowel obstruction Discharge Summary/SBAR reviewed: Yes Handoff Discussed with Transitional User Experience Designer: No, unavailable Psychosocial Risk Factors: None If [...] discharge Patient reminded of follow-up appointment with [facility] provider, Dr Corona on 01/16/24: [...] weekend phone number? YES Colleen Solorio RN [facility] Work Phone: [phone]) [phone] Miscellaneous Notes* Telephone Encounter - Colleen Solorio RN - 11/13/2023 3:49 PM EDT DISCHARGE CALL BACK Today's date: November 13, 2023 Notified of Pt discharge by: hosp ADT folder Patient discharged on 11/10/23 from [facility] to [facility] Primary Cancer Diagnosis: rectal cancer Admitting Diagnosis: small bowel obstruction Discharge Summary/SBAR reviewed: Yes Handoff Discussed with Transitional User Experience Designer: No, unavailable Psychosocial Risk Factors: None If [...] discharge Patient reminded of follow-up appointment with [facility] provider, Dr Corona on 01/16/24: [...] YES Colleen Solorio RN documented in this encounterSelect [facility]05-03-2024 [facility]-10-2023 NoteBoston Medical [id number] Telephone encounter Note* Telephone Encounter - Colleen Solorio RN - 11/10/2023 11:27 AM EDT [facility] results received and pt notified that this was negative. Colleen Solorio RN [facility] Work Phone: [phone]) [phone] Miscellaneous Notes* Telephone Encounter - Colleen Solorio RN - 11/10/2023 11:27 AM EDT [facility] results received and pt notified that this was negative. Colleen Solorio RN * Telephone Encounter - Colleen Solorio RN - 11/02/2023 12:28 PM EDT Call placed to [facility] to follow up on results. They have not received results yet from [facility]. Lola spoke with Daksha at [facility]. She states this testing is still in progress. Blood sample received 10/11, tissue sample received 10/18. Final report should be available in 3-4 wks from 10/18 if no repeat or redraws are needed (which would be 11/08-11/15). Colleen Solorio RN * Telephone Encounter - Colleen Solorio RN - 10/27/2023 3:47 PM EDT Sonia calls back stating she looked into this a little further and she did send this specimen out on 10/18/23. Colleen Solorio RN * Telephone Encounter - Colleen Solorio RN - 10/26/2023 1:50 PM EDT Call placed to Sonia to see if this has been sent out yet. She states it has not. Request faxed to [facility] pathology again, as well as the [facility] order. Colleen Solorio RN * Telephone Encounter - Colleen Solorio RN - 10/17/2023 3:04 PM EDT Call received from Sonia at [facility] pathology stating they haven't ordered Signatera before. Order signed and faxed to [facility] as well as Sonia at [facility]. Colleen Solorio RN * Telephone Encounter - Colleen Solorio RN - 10/17/2023 1:51 PM EDT Email received that there is no residual tumor for [facility] to be ordered on [id number]. Discussed with Dr Corona and he would like this added to [facility] [id number]. Request faxed to [facility] today. Colleen Solorio RN documented in this encounterSelect Medical [facility]05-02-2024 [facility] 11-09-2023 NoteBoston Medical [id number] NoteBoston Medical [id number] Note Boston [facility] [id number] NoteBoston Medical [id number] NoteBoston Medical [id number] NoteBoston Medical [id number] Telephone encounter Note* Telephone Encounter - Cierra Lindquist RN - 11/06/2023 1:31 PM EDT Noted. Informed team that she will be coming to the emergency room for concerns of a bowel obstruction. [facility]04-29-2024 Miscellaneous Notes* Telephone Encounter - Cierra Lindquist RN - 11/06/2023 1:31 PM EDT Noted. Informed team that she will be coming to the emergency room for concerns of a bowel obstruction. * Telephone Encounter - Amber Dhaliwal - 11/06/2023 11:34 AM EDT Patients Mom called in and patient is experiencing a possible bowel obstruction again. Patient was told by Dr Eckert to try to insert a glycerin suppository in to the stoma if she starts to have the symptoms/cramping/decreased. Mom stated she did and patient is having little movement. Patient is having abdominal again as well. Patient is seeing Dr. Singer tomorrow in clinic. Contact# [phone] documented in this encounterSelect [facility]04-29-2024 Telephone encounter Note * Telephone Encounter - Tapan Corona MD - 11/06/2023 1:22 PM EDT Oh no and thanks for the update [facility]04-29-2024 Miscellaneous Notes* Telephone Encounter - Tapan Corona MD - 11/06/2023 1:22 PM EDT Oh no and thanks for the update * Telephone Encounter - Colleen Solorio RN - 11/06/2023 12:50 PM EDT Pt's daughter notified of results. Daughter states pt is currently in the ER at [facility] with a possible bowel obstruction. Pt was scheduled for follow up appointment with Dr Singer tomorrow so they arehopeful that she'll be able to see her today. Colleen Solorio RN * Telephone Encounter - Colleen Solorio RN - 11/06/2023 12:48 PM EDT ----- Message from Tapan Corona MD sent at 11/06/2023 7:12 AM EDT ----- Please call with negative Signatera documented in this encounterSelect [facility]04-29-2024 Telephone encounter Note * Telephone Encounter - Colleen Solorio RN - 11/06/2023 12:50 PM EDT Pt's daughter notified of results. Daughter states pt is currently in the ER at [facility] with a possible bowel obstruction. Pt was scheduled for follow up appointment with Dr Singer tomorrow so they arehopeful that she'll be able to see her today. Colleen Solorio RN [facility] Work Phone: [phone] Telephone encounter Note* Telephone Encounter - Colleen Solorio RN - 11/06/2023 12:48 PM EDT ----- Message from Tapan Corona MD sent at 11/06/2023 7:12 AM EDT ----- Please call with negative Signatera [facility]04-29-2024 Telephone encounter Note* Telephone Encounter - Amber Dhaliwal - 11/06/2023 11:34 AM EDT Patients Mom called in and patient is experiencing a possible bowel obstruction again. Patient was told by Dr Eckert to try to insert a glycerin suppository in to the stoma if she starts to have the symptoms/cramping/decreased. Mom stated she did and patient is having little movement. Patient is having abdominal again as well. Patient is seeing Dr. Singer tomorrow in clinic. Contact# [phone] [facility]04-25-2024 Telephone encounter Note* Telephone Encounter - oClleen Solorio RN - 11/02/2023 12:28 PM EDT Call placed to [facility] to follow up on results. They have not received results yet from [facility]. Lola spoke with Daksha at [facility]. She states this testing is still in progress. Blood sample received 10/11, tissue sample received 10/18. Final report should be available in 3-4 wks from 10/18 if no repeat or redraws are needed (which would be 11/08-11/15). Colleen Solorio RN [facility]04-20-2024 Progress note Author Ion Eckert [facility] October 28, 2023 10:25am Note Date/Time October 28, 2023 10: 25am [facility] [address] [place] [address] General Surgery Progress Note Signed Patient: Evan Gill MR#: [id number] : 1955 Acct:[id number] Age/Sex: 68 / F Adm Date: 4 Loc: 4N Room: 4A2563-5 Type: ADM IN Attending Dr: Jm Trujillo [...] health maintenance 11/02/18 [History Confirmed 10/26/23] omega 5-aye-wis-fish oil 1,000 mg (120 mg-180 mg) capsule [...] mg capsule,delayed release 40 mg PO DAILY 09/28/23 [History Confirmed 10/26/23] denosumab 60 mg/mL subcutaneous syringe (Prolia) 60 mg subcut [id number] 06/26/23 [History Confirmed 10/26/23] progesterone micronized 100 [...] 40 Mg Vial) 40 mg IV-PUSH DAILY [facility] Stop: 10/25/24 08:59 Last Admin: 10/27/23 09:06 [...] % (Auto) 66.8, Lymph % (Auto) 13.6, [place] % (Auto) 11.9, Eos % (Auto) 7.1, Baso % (Auto) 0.6, Nucleat RBC Rel Count 0.1, Neut # (Auto) 3.8, Lymph # (Auto) 0.8 L, [place] # (Auto) 0.7, Eos # (Auto) 0.4, [...] % (Auto) 72.0, Lymph % (Auto) 10.5, [place] % (Auto) 11.5, Eos % (Auto) 5.6, Baso % (Auto) 0.4, Nucleat RBC Rel Count 0.0, Neut # (Auto) 5.7, Lymph # (Auto) 0.8 L, [place] # (Auto) 0.9 H, Eos # (Auto) [...] <Electronically signed by DO Ion Eckert> 10/28/23 1020 [facility] Work Phone: 1(403) 454-909004-19-2024 Telephone encounter Note* Telephone Encounter - Colleen Solorio RN - 10/27/2023 3:47 PM EDT Sonia calls back stating she looked into this a little further and she did send this specimen out on 10/18/23. Colleen Solorio RN [facility]04-19-2024 Progress note Author Jm Trujillo [facility] October 27, 2023 10:34am Note Date/Time October 27, 2023 10: 34am [facility] [address] [place] [address] Hospitalist Progress Note Signed Patient: Evan Gill MR#: [id number] : 1955 Acct:[id number] Age/Sex: 68 / F Adm Date: 4 Loc: 4N Room: [address] [place] [address] Type: ADM IN Attending Dr: Jm Trujillo [...] signed by Jm Trujillo DO> 10/27/23 1034 [facility] Work Phone: 1(356) 815-128004-19-2024 Progress note Author Ion Eckert [facility] October 27, 2023 10:04am Note Date/Time October 27, 2023 10: 04am [facility] [address] [place] [address] General Surgery Progress Note Signed Patient: Evan Gill MR#: [id number] : 1955 Acct:[id number] Age/Sex: 68 / F Adm Date: 4 Loc: 4N Room: [address] [place] [address] Type: ADM IN Attending Dr: Jm Trujillo [...] health maintenance 11/02/18 [History Confirmed 10/26/23] omega 1-qrw-coc-fish oil 1,000 mg (120 mg-180 mg) capsule [...] mg/mL subcutaneous syringe (Prolia) 60 mg subcut [id number] 06/26/23 [History Confirmed 10/26/23] progesterone micronized 100 [...] 1,000 mls @ 100 mls/hr IV .Q10H [facility] Stop: 10/25/24 01:44 Last Admin: 10/27/23 05:41 Dose: 100 mls/hr Ceftriaxone Sodium (Rocephin) 1 gm in 50 mls @ 100 mls/hr IV Q24H [facility] Last Admin: 10/27/23 01:56 Dose: 100 mls/hr Ondansetron HCl (Ondansetron 4 Mg/2 Ml Vial) 4 mg IV-PUSH Q6H PRN PRN Reason: Nausea And Vomiting Stop: 10/25/24 01:37 Last Admin: 10/26/23 11:41 Dose: 4 mg Pantoprazole Sodium (Pantoprazole 40 Mg Vial) 40 mg IV-PUSH DAILY [facility] Stop: 10/25/24 08:59 Last Admin: 10/27/23 09:06 [...] % (Auto) 72.0, Lymph % (Auto) 10.5, [place] % (Auto) 11.5, Eos % (Auto) 5.6, Baso % (Auto) 0.4, Nucleat RBC Rel Count 0.0, Neut # (Auto) 5.7, Lymph # (Auto) 0.8 L, [place] # (Auto) 0.9 H, Eos # (Auto) [...] % (Auto) 80.3, Lymph % (Auto) 8.5, [place] % (Auto) 9.5, Eos % (Auto) 0.9, Baso % (Auto) 0.8, Nucleat RBC Rel Count 0.0, Neut # (Auto) 8.5 H, Lymph # (Auto) 0.9 L, [place] # (Auto) 1.0 H, Eos # (Auto) 0.1, Baso # (Auto) 0.1, PHA Creatinine Clear 53.18, Sodium 138, Potassium 4.8, Chloride 102, Carbon Dioxide 29.4, Anion Gap 11.4, BUN 19, Creatinine 0.85, Est GFR (CKD-EPI) > 60.0, [id number] H, Calcium 9.3, Magnesium 2.0 10/25/23 23:19: Troponin I High Sens 4.9 10/25/23 22:37: Urine Color Yellow, Urine Appearance Clear, Urine pH 5.5, Ur Specific Gratis 1.037 H, Urine Protein Negative, Urine Glucose [...] % (Auto) 75.5, Lymph % (Auto) 14.9, [place] % (Auto) 6.7, Eos % (Auto) 2.2, Baso % (Auto) 0.7, Nucleat RBC Rel Count 0.0, Neut # (Auto) 10.9 H, Lymph # (Auto) 2.2, [place] # (Auto) 1.0 H, Eos # (Auto) [...] signed by DO Ion Eckert> 10/27/23 1004 [facility] Work Phone: 1(472) 265-862304-18-2024 Telephone encounter Note* Telephone Encounter - Colleen Solorio RN - 10/26/2023 1:50 PM EDT Call placed to [facility] to see if this has been sent out yet. She states it has not. Request faxed to [facility] pathology again, as well as the [facility] order. Colleen Solorio RN [facility]04-18-2024 Consult note Author Ion Eckert [facility] October 26, 2023 11:12am Note Date/Time October 26, 2023 11: 12am [facility] [address] [place] [address] General Surgery Consult Note Signed Patient: Evan Gill MR#: [id number] : 1955 Acct:[id number] Age/Sex: 68 / F Adm Date: 4 Loc: 4N Room: 6H4004-8 Type: ADM IN Attending Dr: Jm Trujillo DO Copies to: DO Jm Carrillo DO Paul C Laffay, DO~ History of Present Illness Date of [...] here in September waiting for bed at [facility] and her obstruction improved after about [...] She was set to be transferred to [facility] but they are waiting on transport/beds. Currently she has much less abdominal pain although still a little bit of cramping occasionally. Not putting out anything into the ileostomy. She is not having any nausea or vomiting. The NG tube annoying but she can tolerate it. She is not having much coming out of it. History of the open cholecystectomy back in the . She had the robotic low anterior resection with loop ileostomy in August 2023. She had radiation and chemotherapy. Dr. Laisha singer was her surgeon at [facility] Review of Systems Review of Systems All other systems reviewed & are negative unless noted below or in HPI [facility] Medical History Rectal cancer Colorectal cancer Menopause [...] health maintenance 11/02/18 [History Confirmed 10/26/23] omega 7-qfc-gbe-fish oil 1,000 mg (120 mg-180 mg) capsule [...] mg/mL subcutaneous syringe (Prolia) 60 mg subcut [id number] 06/26/23 [History Confirmed 10/26/23] progesterone micronized 100 [...] Ringers) 1,000 mls @ 75 mls/hr IV .[id number] [facility] Stop: 10/25/24 01:44 Last Admin: 10/26/23 04:12 Dose: 75 mls/hr Ceftriaxone Sodium (Rocephin) 1 gm in 50 mls @ 100 mls/hr IV Q24H [facility] Last Admin: 10/26/23 04:11 Dose: 100 mls/hr Lactated Ringer's (Lactated Ringers) 1,000 mls @ 999 mls/hr IV .Q1H1M ONE Stop: 10/26/23 11:28 Ondansetron HCl (Ondansetron 4 Mg/2 Ml Vial) 4 mg IV-PUSH Q6H PRN PRN Reason: Nausea And Vomiting Stop: 10/25/24 01:37 Pantoprazole Sodium (Pantoprazole 40 Mg Vial) 40 mg IV-PUSH DAILY [facility] Stop: 10/25/24 08:59 Last Admin: 10/26/23 09:11 [...] 10 Ml Syringe) 0 ml IV-PUSH QSHIFT [facility] Stop: 10/25/24 05:59 Last Admin: 10/26/23 05:07 [...] % (Auto) 80.3, Lymph % (Auto) 8.5, [place] % (Auto) 9.5, Eos % (Auto) 0.9, Baso % (Auto) 0.8, Nucleat RBC Rel Count 0.0, Neut # (Auto) 8.5 H, Lymph # (Auto) 0.9 L, [place] # (Auto) 1.0 H, Eos # (Auto) 0.1, Baso # (Auto) 0.1, PHA Creatinine Clear 53.18, Sodium 138, Potassium 4.8, Chloride 102, Carbon Dioxide 29.4, Anion Gap 11.4, BUN 19, Creatinine 0.85, Est GFR (CKD-EPI) > 60.0, [id number] H, Calcium 9.3, Magnesium 2.0 10/25/23 23:19: Troponin I High Sens 4.9 10/25/23 22:37: Urine Color Yellow, Urine Appearance Clear, Urine pH 5.5, Ur Specific Gratis 1.037 H, Urine Protein Negative, Urine Glucose [...] % (Auto) 75.5, Lymph % (Auto) 14.9, [place] % (Auto) 6.7, Eos % (Auto) 2.2, Baso % (Auto) 0.7, Nucleat RBC Rel Count 0.0, Neut # (Auto) 10.9 H, Lymph # (Auto) 2.2, [place] # (Auto) 1.0 H, Eos # (Auto) [...] <Electronically signed by DO Ion Eckert> 10/26/23 [facility] Work Phone: 1(772) 654-738404-18-2024 Progress note Author Jm Trujillo [facility] October 26, 2023 10:34am Note Date/Time October 26, 2023 10: 34am [facility] EN[facility] [address] [place] [address] Hospitalist Progress Note Signed Patient: Evan Gill MR#: [id number] : 1955 Acct:[id number] Age/Sex: 68 / F Adm Date: 4 Loc: Room: [address] [place] [address] Type: ADM IN Attending Dr: Jm Trujillo [...] Lactated Ringers IV 10/25/24 01:44 75 mls/hr .[id number] Administration Ceftriaxone Sodium 1 gm in [...] Consult general surgery ? May transfer to [facility] when bed available ? NG to LIWS [...] 1029 Signed By: <Electronically signed by Jm Trujillo DO> 10/26/23 1034 [facility] Work Phone: 1(776) 697-761104-18-2024 History and physical note Author Patrice Hooks [facility] October 26, 2023 4:08am Note Date/Time October 26, 2023 1:4 8am [facility] EN[facility] [address] [place] [address] Hospitalist H&P Signed Patient: Evan Gill MR#: [id number] : 1955 Acct:[id number] Age/Sex: 68 / F Adm Date: 4 Loc: 4N Room: [address] [place] [address] Type: ADM IN Attending Dr: Patrice Hooks MD Copies to: MD Charles Peng DO Paula G Smith, APRN~ HPI DATE OF EXAMINATION: 10/26/23 CHIEF COMPLAINT: abdominal pain HISTORY OF PRESENT ILLNESS: Attending note: I saw the patient personally on the day of encounter. I reviewed the relevant history, and performed the guzman elements of the physical examination. I reviewedthe relevant laboratory workup, radiological studies and the current treatment plan. I formulated the plan of care and confirmed it with the resident/student/EMBLEM MAKER. Ms. Gill is a 68-year-old female with [...] and Zosyn. Patient's proctosigmoidectomy was performed at [facility], surgeon was contacted there per the ER physician and the patient was accepted however we are waiting on a bed. She will be admitted as inpatient to the medical floor while awaiting a bed. Review of Systems Review of Systems Review of systems: A 10 point review of systems was obtained, negative unless noted in the HPI or below. [facility] Medical History Rectal cancer Colorectal cancer Menopause [...] health maintenance 11/02/18 [History Confirmed 10/26/23] omega 7-ksl-hqi-fish oil 1,000 mg (120 mg-180 mg) capsule [...] mg/mL subcutaneous syringe (Prolia) 60 mg subcut [id number] 06/26/23 [History Confirmed 10/26/23] progesterone micronized 100 [...] (24.7-34.3) 10/25/23 20: MCHC 33.5 g/dL (32.0-35.0) 10/25/23: RDW 15.5 % (11.9-15.3) H 10/25/23 20: Plt Count 397 x10E3/uL (150-450) 10/25/23: MPV 6.4 fl (6.3-10.7) 10/25/23: Neut % (Auto) 75.5 % (.) 10/25/23: Lymph % (Auto) 14.9 % (.) 10/25/23: [place] % (Auto) 6.7 % (.) 10/25/23: Eos % (Auto) 2.2 % (.) 10/25/23: Baso % (Auto) 0.7 % (.) 10/25/23: Nucleat RBC Rel Count 0.0 /100 WBC (0-0.5) 10/25/23: Neut # (Auto) 10.9 x10E3/uL (1.8-7.7) H 10/25/23 20: Lymph # (Auto) 2.2 x10E3/uL (1.00-4.8) 10/25/23: [place] # (Auto) 1.0 x10E3/uL (0.0-0.8) H 10/25/23 20: Eos # (Auto) 0.3 x10E3/uL (0.0-0.45) 10/25/23: Baso # (Auto) 0.1 x10E3/uL (0.0-0.2) 10/25/23: Monocyte Dist Width 18.93 % (0.00-20.00) 10/25/23: PT 11.4 Seconds (9.0-12.9) 10/25/23: INR 1.0 10/25/23: APTT 25.0 Seconds (25.1-36.5) L 10/25/23: D-Dimer Quant (PE/DVT) 312 ng/mL (0-243) H 10/25/23: D-Dimer Quant (PE/DVT) Cancelled 10/25/23: PHA Creatinine Clear 61.55 10/25/23: Sodium 133 mmol/L (136-145) L D 10/25/23: Potassium 4.0 mmol/L (3.5-5.1) 10/25/23: Chloride 100 mmol/L (98-107) 10/25/23: Carbon Dioxide 21.9 mmol/L (21.0-31.0) 10/25/23: Anion Gap 15.1 mEq/L (6.0-15.0) H 10/25/23 20: BUN 20 mg/dL (7-25) 10/25/23: Creatinine 0.67 mg/dL (0.60-1.20) 10/25/23: Est GFR (CKD-EPI) > 60.0 mL/Min 10/25/23 20:27 Glucose 132 mg/dL (70-100) H 10/25/23 20:27 Lactic Acid 1.3 mmol/L (0.5-2.2) 10/25/23 21:15 Calcium 9.9 mg/dL (8.6-10.3) 10/25/23 20:27 Total Bilirubin 1.0 mg/dl (0.3-1.0) 10/25/23 20: Direct Bilirubin 0.20 mg/dL (0.03-0.18) H 10/25/23 20: Indirect Bilirubin 0.8 mg/dL 10/25/23 20:27 AST 52 U/L (13-39) H 10/25/23 20:27 ALT 36 U/L (7-52) 10/25/23 20: Alkaline Phosphatase 79 U/L (34-104) 10/25/23 20:27 Total Creatine Kinase 128 U/L (30-223) 10/25/23 20:27 Troponin I High Sens 4.9 pg/mL (0.0-15.0) 10/25/23 23:19 B-Natriuretic Peptide 42.0 pg/mL (5-100) 10/25/23 20:27 Total Protein 7.3 gm/dL (6.4-8.9) 10/25/23 20: Albumin 4.4 gm/dL (3.5-5.7) 10/25/23 20: Globulin 2.9 gm/dL 10/25/23 20: Albumin/Globulin Ratio 1.5 10/25/23 20:27 Urine Color Yellow (Yellow) 10/25/23 22:37 Urine Appearance Clear (Clear) 10/25/23 22:37 Urine pH 5.5 (5.0-9.0) 10/25/23 22:37 Ur Specific Gratis 1.037 (1.001-1.030) H 10/25/23 22:37 Urine Protein [...] Consult general surgery ? May transfer to [facility] when bed available ? NG to LIWS [...] signed by Patrice Hooks MD> 10/26/23 0408 [facility] Work Phone: 1(284) 625-950104-17-2024 Miscellaneous Notes* Telephone Encounter - Cierra Lindquist RN - 10/25/2023 2:44 PM EDT Returned call. She states she is having the signs of another small bowel obstruction. She has not had stool in her ostomy since 3am. She is requesting pain medication to relax her bowels. She states that is what [facility] did to help her have bowel movements [...] ER and is requesting pain medication. Contact# [phone] [facility] Telephone encounter Note * Telephone Encounter - Colleen Solorio RN - 10/17/2023 3:04 PM EDT Call received from Sonia at [facility] pathology stating they haven't ordered Signatera before. Order signed and faxed to Neel as well as Sonia at [facility]. Colleen Solorio RN [facility]04-09-2024 Telephone encounter Note* Telephone Encounter - Colleen Solorio RN - 10/17/2023 1:51 PM EDT Email received that there is no residual tumor for Neel to be ordered on [id number]. Discussed with Dr Corona and he would like this added to [facility] [phone] [phone]. Request faxed to [facility] today. Colleen G Osmin, RN [facility]04-02-2024 NoteHNO ID: [id number] Author: JAX DE LEÓN LMT Service: ? Author Type: Therapist Type: Progress Notes Filed: 10/10/2023 13:39 Note Text: Patient Name: Evan Gill : 1955 Referred For: chair massage Diagnosis: muscle soreness Chief Complaint: Pain Anxiety (pre): 2 Pain (pre): 3 Stress Level (pre): 2 Therapy Provided: Massage Therapy Area(s) Treated: entire back Anxiety (post): <1 Pain (post): 1 Stress Level (post): <1 Visit Outcome: Better Comments: relaxation massage Treatment Plan: consistent time Care Team contacted: N/A Signature: Jax De León LMT Date: October 10, 2023 Time: 1:37 [facility]04-02-2024 History of Present illness Narrative* Jax De León LMT - 10/10/2023 1:37 PM [...] consistent time Care Team contacted: N/A Signature: Jax De León LMT Date: October 10, 2023 Time: 1:37 PM documented in this encounterSelect [facility]-2024 NoteHNO ID: [id number] Author: Del HUDSON MD Service: ? Author Type: Physician Type: Progress Notes Filed: 10/17/2023 08:42 Note Text: Radiation Oncology - Follow Up Note PATIENT [...] fractions ELAPSED TIME: 42 days. INTERVAL HISTORY: Since last appointment patient underwent resection. She is recovering well. No new problems or concerns. 08/25/2023 robotic laparoscopic colectomy. Palpable finding mid rectum. No liver or peritoneal findings intraoperatively. Pathology demonstrating: AMENDED REPORT DETAIL [facility] Amended: 09/13/2023 3:21 PM This report is being amended to reflect a change in the Synoptic Report and Gross Description armijo. The changes are as follows: changed to tumor location in the Synoptic Report from Cannot be determined to Rectum / Entirely below anterior peritoneal reflection and added The ulcer is located entirely below the anterior peritoneal reflection to the Gross Description. Dr. Singer was notified of this change by e-mail on 09/13/2023. JEL 09/13/2023 Comment: Edited results: Previously reported on 08/31/2023 at 6:21 PM EST. FINAL DIAGNOSIS A. Sigmoid colon and rectum, resection: - No evidence of residual invasive adenocarcinoma (see synoptic report). - Fifteen lymph nodes, negative for malignancy (0/15). B. Additional distal margin, excision: - Segment of rectum with no diagnostic abnormality. JEL 08/30/2023 Amendment electronically signed by Oscar Marshall MD on 09/13/2023 at 3:24 PM Block for additional Biomarkers/Molecular studies LAB No evidence of residual invasive adenocarcinoma Synoptic Report COLON AND RECTUM: Resection, Including [...] 1, 8th Ed.) it is the managing physician?s responsibility to establish the final pathologic stage based upon all pertinent information, including but potentially not limited to this pathology report. TNM Descriptors y (post-treatment) pT Category pT0 pN Category pN0 . ALLERGIES No Known Allergies MEDICATIONS: acetaminophen (TYLENOL) 500 mg tablet Take 2 tablets by mouth every 8 hours. nitroglycerin sublingual (NITROQUICK) 0.4 mg SL tablet Dissolve 1 tablet under the tongue as needed for chest pain, may repeat every 5 minutes if no relief up to 3 times. Amoxicillin 500 mg tablet FOR DENTAL WORK [...] prochlorperazine (COMPAZINE) 10 mg tablet Take 1 tabl (more content not included)...[facility]04-02-2024 History of Present illness Narrative* Del Hudson MD - 10/10/2023 11:31 AM EDT Radiation Oncology - Follow Up Note PATIENT [...] fractions ELAPSED TIME: 42 days. INTERVAL HISTORY: Since last appointment patient underwent resection. She is recovering well. No new problems or concerns. 08/25/2023 robotic laparoscopic colectomy. Palpable finding mid rectum. No liver or peritoneal findings intraoperatively. Pathology demonstrating: AMENDED REPORT DETAIL [facility] LAB Amended: 09/13/2023 3:21 PM This report is being amended to reflect a change in the Synoptic Report and Gross Description armijo. The changes are as follows: changed to tumor location in the Synoptic Report from Cannot be determined to Rectum / Entirely below anterior peritoneal reflection and added The ulcer is located entirely below the anterior peritoneal reflection to the Gross Description. Dr. Singer was notified of this change by e-mail on 09/13/2023. JEL 09/13/2023 Comment: Edited results: Previously reported on 08/31/2023 at 6:21 PM EST. FINAL DIAGNOSIS A. Sigmoid colon and rectum, resection: - No evidence of residual invasive adenocarcinoma (see synoptic report). - Fifteen lymph nodes, negative for malignancy (0/15). B. Additional distal margin, excision: - Segment of rectum with no diagnostic abnormality. JEL 08/30/2023 Amendment electronically signed by Oscar Marshall MD on 09/13/2023 at 3:24 PM Block for additional Biomarkers/Molecular studies LAB No evidence of residual invasive adenocarcinoma Synoptic Report COLON AND RECTUM: Resection, Including [...] (post-treatment) pT Category pT0 pN Category pN0 . ALLERGIES No Known Allergies MEDICATIONS: acetaminophen (TYLENOL) 500 mg tablet Take 2 tablets by mouth every 8 hours. nitroglycerin sublingual (NITROQUICK) 0.4 mg SL tablet Dissolve 1 tablet under the tongue as neededfor chest pain, may repeat every 5 minutes if no relief up to 3 times. Amoxicillin 500 mg tablet FOR DENTAL WORK [...] every 8 hours as needed for nausea/vomiting. vortioxetine (TRINTELLIX) 10 mg tablet Take 10 [...] Take 1 tablet by mouth once daily. REVIEW OF SYSTEMS: GENERAL: Negative for [...] rashes or other skin changes. PHYSICAL EXAM: 10/10/23 Weight 63.7 kg (140 lb 6.9 oz) Height 162.6 cm (5' 4.02 ) BSA 1.7 BMI 24.09 Temp 36.7 C (98 F) Pulse 92 Resp 16 BP 122/66 SpO2 100 % KPS: 100 General Appearance: Alert and oriented. No acute distress. Rectal: Deferred Musculoskeletal: No edema. Normal ROM in extremities. No bone or spine tenderness. Neuro: Speech fluent. Gait normal. No focal deficits. Skin: No rashes noted Lymphatics: No palpable lymphadenopathy. ASSESSMENT AND PLAN: MRI staged T3c,N+M0- Adenocarcinoma of the mid-low rectum Doing well after completion of radiation, with resection showing complete pathologic response. No significant postradiation related issues. She has further follow-up with surgery and medical oncology. On observation protocol. I will plan to see her back in 6 months for follow-up. Signed by: Del Hudson MD cc: Charles Bazzi, [address] [place] [phone] No referring provider defined for this encounter. documented in this encounterSelect [facility]-2024 NoteHNO ID: [id number] Author: TAPAN CORONA MD Service: ? Author Type: Physician Type: Progress Notes Filed: 10/10/2023 23:08 Note Text: PATIENT NAME: Evan Gill CLINIC NO.: [id number] ATTENDING PHYSICIAN: Tapan Corona MD DATE OF SERVICE: October 10, 2023 Some of the elements of this note have been copied from my previous progress note dated 07/05/2023. All the information has been reviewed carefully. [...] 5' 4.016 (1.63m) Wt 140 lb 6.9 oz (63.7kg) SpO2 100% BMI 24.09 kg/(m2). Wt 61.8 kg (136 lb 3.2 oz) [...] Hematocrit Date Value Ref Range Status 09/04/2023 3 (more content not included)...[facility]04-02-2024 History of Present illness Narrative* Tapan Corona MD - 10/10/2023 11:06 AM EDT Images from the original note were not included. PATIENT NAME: Evan Gill [facility] NO.: [id number] ATTENDING PHYSICIAN: Tapan Corona MD DATE OF SERVICE: October 10, [...] Range Status 08/31/2023 7.2 % Final Abs [place] Date Value Ref Range Status 08/31/2023 0.67 [...] do not hesitate to contact me at [phone]. Tapan Corona MD Hematology/Medical Oncology [facility] Duarte spent a total of 30 minutes on the date of the service which included preparing to see the patient, [id number] patient care, completing clinical documentation, obtaining and/or reviewing separately obtained history, performing a medically appropriate examination, counseling and educating the pat ient/family/caregiver, and ordering medications, tests, or procedures. CC: documented in this encounterSelect [facility]-2024 Progress note Author Tim Garduno [facility] October 01, 2023 1:12pm Note Date/Time October 01, 2023 10: 31am [facility] EN[facility] [address] [place] [address] Hospitalist Progress Note Signed with Reece Patient: Evan Gill MR#: [id number] : 1955 Acct:[id number] Age/Sex: 68 / F Adm Date: 4 Loc: 3T Room: [address] [place] [address] Type: ADM IN Attending Dr: Tim Garduno [...] plan. Addendum Documented By: Tim Garduno MD 10/01/231310 Addendum Signed By: <Electronically signed by Tim [...] ppx: heparin Documented By: Tim Garduno MD 10/01/2305 07 Signed By: <Electronically signed by Tim Garduno MD> 10/01/23 1033 [facility] Work Phone: 1(495) 363-799503-23-2024 Progress note Author Tim Garduno [facility] September 30, 2023 11:15am Note Date/Time September 30, 2023 11: 15am [facility] ENTER [address] [place], [place] [id number] Progress Note Signed Patient: Evan Gill MR#: [id number] : 1955 Acct:[id number] Age/Sex: 68 / F Adm Date: 4 Loc: 3T Room: [address] [place] [address] Type: ADM IN Attending Dr: Tim Garduno MD Copies to: ~ Date of Service: 09/30/2023 Progress Narrative Note SBO PROGRESS NOTE Progress Note: Case was discussed with patient's surgeon at [facility] Dr. Durán, hereviewed her CT scan that was done here and showed SBO and suggested to provide IV fluids and ostomy irrigation/enema and hopefully she will improve with conservative management and save the trip back to [place]. He states if she does not improve [...] <Electronically signed by Tim Garduno MD> 09/30/[address] [place] [address] Work Phone: 1(347) 819-168503-23-2024 Consult note Author Cristhian Vargas [facility] September 30, 2023 10:17am Note Date/Time September 30, 2023 10: 17am [facility] EN[facility] [address] [place], [place] [id number] General Surgery Consult Note Signed Patient: Evan Gill MR#: [id number] : 1955 Acct:[id number] Age/Sex: 68 / F Adm Date: 4 Loc: 3T Room: [address] [place] [address] Type: ADM IN Attending Dr: Tim Garduno MD Copies to: MD Charles Govea Tim Garduno MD~ History of Present Illness Date of consult: 09/30/2023 Reason for consult: other (Bowel obstruction) Requesting/Attending Provider: Tim Garduno MD History of present illness: Patient is a 68-year-old female who last month underwent robotic laparoscopic assisted low anterior resection for rectal cancer at [facility]. She had previously been treated with chemotherapy [...] the ileostomy. No bed was available at [facility]. Patient was admitted here. This morning, [...] and Denies vomiting Neurologic Neurologic: Denies syncope [facility] Medical History (Updated 09/30/23 @ 10:16 by Cristhian Vargas MD) Colorectal cancer Menopause Depression Skin cancer melanoma Arthritis Incontinence Hypertension Surgical History (Updated 09/30/23 @ 10:16 by Cristhian Vargas MD) H/O ileostomy History of knee [...] health maintenance 11/02/18 [History Confirmed 09/30/23] omega 3-irg-ohj-fish oil 1,000 mg (120 mg-180 mg) capsule [...] mg/mL subcutaneous syringe (Prolia) 60 mg subcut [id number] 06/26/23 [History Confirmed 09/30/23] progesterone micronized 100 [...] % (Auto) 71.5, Lymph % (Auto) 12.0, [place] % (Auto) 8.0, Eos % (Auto) 7.3, Baso % (Auto) 1.2, Nucleat RBC Rel Count 0.1, Neut # (Auto) 6.8, Lymph # (Auto) 1.1, [place] # (Auto) 0.8, Eos # (Auto) 0.7 [...] tolerated. If patient worsens again, transfer to [facility] tomorrow. Documented By: Cristhian Vargas MD 09/30/23 1010 Signed By: <Electronically signed by MD Cristhian Vargas> 09/30/23 1017 [facility] Work Phone: 1(427) 513-285503-23-2024 History and physical note Author Miguel Ángel Delgadillo [facility] September 30, 2023 6:58am Note Date/Time September 30, 2023 5:2 9am [facility] EN[facility] [address] [place] [address] Hospitalist H&P Signed Patient: Evan Gill MR#: [id number] : 1955 Acct:[id number] Age/Sex: 68 / F Adm Date: 4 Loc: 3T Room: [address] [place] [address] Type: ADM IN Attending Dr: Miguel Ángel Delgadillo MD Copies to: DO Miguel Ángel Carrillo MD~ HPI DATE OF EXAMINATION: 09/30/23 HISTORY [...] reports are out of hospital reading. final psychiatric hospital radiology report pending) [facility] was contacted but they are not taking [...] care Discussed with:?the medical team, the patient [facility] Medical History (Updated 09/30/23 @ 03:06 by Patrice Springer, DO) Colorectal cancer Menopause Depression Skin cancer [...] health maintenance 11/02/18 [History Confirmed 06/26/23] omega 0-zob-taj-fish oil 1,000 mg (120 mg-180 mg) capsule [...] mg/mL subcutaneous syringe (Prolia) 60 mg subcut [id number] 06/26/23 [History Confirmed 06/26/23] hydrocodone 5 mg-acetaminophen [...] % (Auto) 12.0 % (.) 09/30/23 01:20 [place] % (Auto) 8.0 % (.) 09/30/23 01:20 Eos % (Auto) 7.3 % (.) 09/30/23 01:20 Baso % (Auto) 1.2 % (.) 09/30/23 01:20 Nucleat RBC Rel Count 0.1 /100 WBC (0-0.5) 09/30/23 01:20 Neut # (Auto) 6.8 x10E3/uL (1.8-7.7) 09/30/23 01:20 Lymph # (Auto) 1.1 x10E3/uL (1.00-4.8) 09/30/23 01:20 [place] # (Auto) 0.8 x10E3/uL (0.0-0.8) 09/30/23 01:20 [...] 2 Documented By: Miguel Ángel Delgadillo MD 09/30/23522 Signed By: <Electronically signed by Miguel Ángel Delgadillo MD> 09/30/23 0658 [facility] Work Phone: 1(779) 621-485103-15-2024 History of Present illness Narrative* Brandie Salmeron APRN.CONSUMER [employer]LECT[employer]IC RETAIL SPECIALIST - 09/22/2023 2:40 PM EDT COLORECTAL SURGERY September 22, 2023 Evan Gill 68 year old This consult was requested by Dr. Singer and my final recommendations will be communicated to the requesting health care provider by way of the shared medical record for internal providers or letter [employer] for external providers. Chief Complaint: [...] lower quadrant. Red, healthy mucosa. Round,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 Soin Medical Center12-29-2023 NoteHNO ID: [id number] Author: Abigail Burroughs RN Service: ? Author Type: Registered Nurse Type: Progress Notes Filed: 07/07/2023 5:29 PM Note Text: Dr Corona arrived at infusion suite to assess patient Abigail Burroughs RNKettering Health – Soin Medical Center12-29-2023 NoteHNO ID: [id number] Author: Abigail Burroughs RN Service: ? Author Type: Registered Nurse Type: Progress Notes Filed: 07/07/2023 5:29 PM Note Text: ED gave patient an Rx for Imdur. Patient education complete and printed information given. Patient verbalizes understanding Abigail Burroughs RNKettering Health – Soin [facility] Center12-29-2023 NoteHNO ID: [id number] Author: Abigail Burroughs RN Service: ? Author Type: Registered Nurse Type: Progress Notes Filed: 07/07/2023 5:29 PM Note Text: Patient has arrived this evening for pump DC. She reports she was just DC from [facility] ED for the second time today for chest pain , she is here with a family member. States she has a nitro patch on and is currently having symptoms but not as severe. Refer to flowsheet for vitals and assessment. Brody Solorio RNCC is aware and is with patient, and Dr Corona will back to assess. Orders received per Dr Corona ok to give patient 1 liter NS and Dex 10mg IV per patient request as she has stated she has not had any intake today and has nausea Abigail Burroughs RNKettering Health – Soin Medical Center12-27-2023 NoteHNO ID: [id number] Author: Tapan Corona MD Service: ? Author Type: Physician Type: Progress Notes Filed: 07/05/2023 9:50 AM Note Text: PATIENT NAME: Evan Gill CLINIC NO.: [id number] ATTENDING PHYSICIAN: Tapan Corona MD DATE OF SERVICE: July 05, 2023 Some of the elements of this note have been copied from my previous progress note dated 06/14/2023. All the information has been reviewed carefully. Dear Dr. Bazzi here is an update on a follow up visit on female Evan Gill at the clinic July 05, 2023 Diagnosis: MRI staged T3c,N+M0- Adenocarcinoma of the mid-low rectum Treatment History: Xeloda and XRT 03/29/2023- Admitted 04/06/2023 with coronary spasms and elevated Troponin- ECHO normal, CTA negative for PE.Xeloda stopped shortly after completed radiation 05/10/2023 FOLFOX started 07/05/2023 HPI: Evan Gill is a 67 year [...] of hands/feet. No weakness. PHYSICAL EXAMINATION: BP 102/54 Pulse 77 Temp (Src) 98 (Temporal) Resp 16 Ht 5' 4.016 (1.63m) Wt 143 lb 11.8 oz (65.2kg) SpO2 100% BMI 24.66 kg/(m2). Wt 61.8 kg (136 lb 3.2 oz) [...] : Deferred LABS: Glucose (mg/dL) Date Value 07/05/2023 140 Potassium (mmol/L) Date Value 07/05/2023 3.9 Sodium (mmol/L) Date Value 07/05/2023 144 Chloride (mmol/L) Date Value 07/05/2023 108 CO2 (mmol/L) Date Value 07/05/2023 25 Creatinine (mg/dL) Date Value 07/05/2023 0.66 BUN (mg/dL) Date Value 07/05/2023 19 Anion Gap (mmol/L) Date Value 07/05/2023 11 Calcium, Total (mg/dL) Date Value 07/05/2023 8.7 Protein, Total (g/dL) Date Value 07/05/2023 5.8 Albumin (g/dL) Date Value 07/05/2023 3.8 Bilirubin, Total (mg/dL) Date Value 07/05/2023 0.2 Alkaline Phosphatase (U/L) Date Value 07/05/2023 73 AST (U/L) Date Value 07/05/2023 16 ALT (U/L) Date Value 07/05/2023 11 WBC Date Value Ref Range Status 07/05/2023 4.27 3.70 - 11.00 k/uL Final RBC Date Value Ref Range Status 07/05/2023 3.43 (L) 3.90 - 5.20 m/uL Final Hemoglobin Date Value Ref Range Status 07/05/2023 9.9 (L) 11.5 - 15.5 g/dL Final Hematocrit Date Value Ref Range Status 07/05/2023 31.1 (L) 36.0 - 46.0 % Final MCV Date Value Ref Range Status 07/05/2023 90.7 80.0 - 100.0 fL Cori (more content not included)...[facility]12-13-2023 Miscellaneous Notes* Telephone Encounter - Colleen Solorio [...] education. Colleen Solorio RN documented in this encounterSelect [facility]12-12-2023 NoteHNO ID: [id number] Author: Colleen Solorio RN Service: ? Author Type: Registered Nurse Type: Progress Notes Filed: 06/20/2023 11:10 AM Note Text: ONCOLOGY PATIENT EDUCATION NOTE TOPIC: Chemotherapy, Medications: [...] was provided/discussed including but not limited to: abdominal discomfort, anemia, appetite changes, arthralgia, bowel habit changes, [...] patient, which included the importance of reporting any fever of 100.4F (38.0C) or greater to the healthcare team as noted on the provided wallet card and/or magnet. YES - Patient has antiemetics in the home from previous treatment. - Pt has [employer] binder in the home from previous treatment. Time Spent: 40 minutes REFERRAL (RECOMMENDATION): N/A Colleen Solorio [facility]NK[facility] History of Present illness Narrative* Colleen Solorio RN - 06/20/2023 11:02 AM EST ONCOLOGY [...] N/A Colleen Solorio RN * Brandie Clayton [facility] - 06/20/2023 10:00 AM EST Images from the original note were not included. [facility] Department of Pharmacy Oncology Pharmacy Medication Education Patient Name: Evan Gill Primary Oncologist: Cole Diagnosis: rectal cancer Evan Gill is a [...] Take 1 Each by mouth once daily. [employer] supplies guzman mitochondrial micronutrients and a smart [...] time (15 minute increments) with the patient Serena Clayton RPh Pager: documented in this encounterSelect Medical [facility]12-12-2023 Miscellaneous Notes* Addendum Note - Brandie Clayton RPh - 06/20/2023 10:00 AM ESTAddended by: BRANDIE CLAYTON on: 06/20/2023 11:35 AM Modules accepted: Orders documented in this encounterSelect Medical [facility]12-12-2023 NoteHNO ID: [id number] Author: Brandie Clayton RPh Service: ? Author Type: Pharmacist Type: Progress Notes Filed: 06/20/2023 11:35 AM Note Text: [facility] Department of Pharmacy Oncology Pharmacy Medication Education Patient Name: Evan Gill Primary Oncologist: Cole Diagnosis: rectal cancer Evan Gill is a 67 year old patient and daughter here today for medication education for IV FLUOROURACIL , LEUCOVORIN , and OXALIPLATIN . Drug Interactions: Clinically significant interactions with chemotherapy, immunosuppression, or other standard of care treatment plan medications anticipated: No. There are no [...] with Vitamin E, B12 + Active Folate MEDICATION, NON-DATABASE Take 1 Each by mouth once daily. [employer] supplies guzman mitochondrial micronutrients and a smart combination of alpha lipoic acid, N-acetyl cysteine, and acetyl L-carnitine ondansetron orally disintegrating [...] time (15 minute increments) with the patient Serena Erica [facility] Pager:[facility]12-06-2023 NoteHNO ID: [id number] Author: Tapan Corona MD Service: ? Author Type: Physician Type: Progress Notes Filed: 06/14/2023 3:41 PM Note Text: PATIENT NAME: Evan Gill [facility] NO.: [id number] ATTENDING PHYSICIAN: Tapan Corona MD DATE OF SERVICE: June 14, 2023 Some of the elements of this note have been copied from my previous progress note dated 04/28/2023. All the information has been reviewed carefully. [...] 12.8 oz (63.4kg) SpO2 94% BMI 23.98 kg/(m2). Wt 61.8 kg (136 lb 3.2 oz) [...] 100.0 fL Final [facility] Date Value Ref R (more content not included)...[facility] 06-14-2023 History of Present illness Narrative* Tapan Corona MD - 06/14/2023 3:17 PM EST Images from the original note were not included. PATIENT NAME: Evan Gill CLINIC NO.: [id number] ATTENDING PHYSICIAN: Tapan Corona MD DATE OF SERVICE: June 14, [...] Range Status 06/14/2023 8.8 % Final Abs [place] Date Value Ref Range Status 06/14/2023 0.97 [...] do not hesitate to contact me at [phone]. Tapan Corona MD Hematology/Medical Oncology [facility] Ghassan Giordano spent a total of 30 minutes on the date of the service which included preparing to see the patient, xgpy-vt-sylh patient care, completing clinical documentation, obtaining and/or reviewing separately obtained history, performing a medically appropriate examination, counseling and educating the pat ient/family/caregiver, and ordering medications, tests, or procedures. CC: documented in this encounterSelect Medical [facility]12-04-2023 History of Present illness Narrative* Joann Torres RT(R) - 06/12/2023 11:10 AM [...] Intact, Site disposition Discontinued SIGNED BY: RT Josh(Raphael) June 12, 2023 11:31 AM * Joann [...] MR; Exam(s) Completed: Body: Rectal SIGNATURE: RT Josh(Raphael) PATIENT NAME: Evan Gill DATE: June 12, 2023 TIME: 11:44 AM documented in this encounterSelect Medical Specialty [facility]12-04-2023 NoteHNO ID: [id number] Author: Joann Torres RT (R) Service: Radiology Author Type: Technologist Type: Progress Notes Filed: 06/12/2023 11:45 AM Note Text: Radiology Service Progress Note DATE OF SERVICE: [...] Gill DATE: June 12, 2023 TIME: 11:44 [facility]12-04-2023 NoteHNO ID: [id number] Author: Joann Torres RT(R) Service: Radiology Author Type: Technologist Type: Progress Notes Filed: 06/12/2023 11:32 AM Note Text: Radiology Service Progress Note PATIENT NAME: Evan Gill DATE OF SERVICE: June 12, 2023 TIME: 11:31 AM PATIENT IDENTITY VERIFICATION COMPLETED USING TWO (2) IDENTIFIERS: Name and Date of confirmed by [...] BY: RT Josh(R) June 12, 2023 11:31 [facility]11-30-2023 History and physical note* Laisha Singer [...] 2023 TIME: 12:39 PM documented in this encounterSelect Medical Specialty [facility]11-20-2023 NoteHNO ID: [id number] Author: Del Hudson MD Service: ? Author Type: Physician Type: Progress Notes Filed: 05/31/2023 2:34 PM Note Text: Radiation Oncology - Follow Up Note PATIENT [...] with Vitamin E, B12 + Active Folate MEDICATION, NON-DATABASE Take 1 Each by mouth once daily. [employer] supplies guzman mitochondrial micronutrients and a smart combination of alpha lipoic acid, N-acetyl cysteine, and acetyl L-carnitine ondansetron orally disintegrating [...] BP 134/78 Pulse 64 Temp (!) 35.9 ?C (96.7 ?F) Resp 18 Wt 62.6 kg (138 lb) SpO2 98% BMI 23.68 kg/m? KPS: 100 General Appearance: Alert and oriented. No acute distress. Rectal: Deferred Musculoskeletal: No edema. Normal ROM in extremities. No bone or spine tenderness. Neuro: Speech fluent. Gait normal. No focal deficits. Skin: No rashes noted Lymphatics: No palpable lymphadenopathy. ASSESSMENT AND PLAN: MRI staged T3c,N+M0- Adenocarcinoma of the mid-low rectum Doing well after completion of radiation, initially with combined capecitabine chemotherapy however due to cardiac issues this was stopped and completed radiation without further concurrent chemotherapy. She has had significant improvement in her rectal symptoms. No significant postradiation related issues including pelvic pain or bleeding. She has further follow-up including endoscopy and scan coming up. I will plan to see her back in 2 to 3 months for follow-up. Signed by: Del Hudson MD cc: Charles Bazzi DO [address] [place] [phone] No referring provider defined for this encounter.[facility] 05-29-2023 History of Present illness Narrative* Del Hudson [...] Take 1 Each by mouth once daily. [employer] supplies guzman mitochondrial micronutrients and a smart [...] Signed by: Del Hudson MD cc: Charles Bazzi DO [address] [place] [phone] No referring provider defined for this encounter. documented in this encounterSelect Medical [facility]11-02-2023 Evaluation note* Encounter Date Diagnosis Assessment Notes Treatment Notes Treatment Clinical Notes May, Hypertension (ICD-10 - I10) May, Stress incontinence in female (ICD-10 - N39.3) May, GERD (gastroesophageal reflux disease) (ICD-10 - K21.9) [employer] Other [id number] History of Present illness Narrative* Del Hudson MD - 05/10/2023 12:00 AM EDT [facility] Radiation Oncology Department RADIATION ONCOLOGY - COMPLETION [...] tissue reduction seen on CBCT. The pa evy was able to complete radiation treatment as intended though with short break due to cardiac workup. The disease response will be assessed in clinic. The patient will be seen again in 2 weeks for postradiation follow-up. Staff Physician Monty Hudson M.D. / TINA :11 PM Electronically Signed cc: Dr. Charles Corona documented in this encounterSelect Medical Specialty [facility]10-30-2023 History of Present illness Narrative* Del Hudson [...] weeks. Del Hudson MD documented in this encounterSelect Medical Specialty [facility]10-30-2023 Nurse Note* Brisa Zapata LPN - 05/08/2023 10:59 AM EDT Status: Post-menopausal. documented in this encounterSelect Medical Specialty [facility]10-24-2023 History of Present illness Narrative* Osmany Lee [...] 2023 Time: 2:30 PM documented in this encounterSelect Medical Specialty [facility]10-23-2023 Evaluation note* Encounter Date Diagnosis Assessment Notes Treatment Notes Treatment Clinical Notes Apr, Adenocarcinoma of rectum (ICD-10 - C20) Patient is currently following with Dr. Toney through the [facility]. She is currently going through radiation treatment five days a week. Oral chemo therapy was stopped due to negative side effects. Patient appears to be doing well, she does speak in a positive tone and doesnt show signs of distress. Apr, Chest pain (ICD-10 - R07.9) Patient did have a stress test done through the [facility], this was normal. Reports after the oral chemotherapy was stopped the chest pain did resolve. We will continue to monitor. Apr, Hyperlipidemia (ICD-10 - E78.5) Blood work ordered for medicare wellness. [employer] Other 10-23-2023 History of Present illness Narrative* Del Hudson [...] Pyridium. Del Hudson MD documented in this encounterSelect Medical [facility]10-20-2023 History of Present illness Narrative* Tapan Corona MD - 04/28/2023 2:30 PM EDT Images from the original note were not included. PATIENT NAME: Evan Gill CLINIC NO.: [id number] ATTENDING PHYSICIAN: Tapan Corona MD DATE OF SERVICE: April 28, [...] Range Status 04/28/2023 9.9 % Final Abs [place] Date Value Ref Range Status 04/28/2023 0.48 [...] monitoring as part of STACY Echo at [facility] reviewed and was normal. See back in 6 weeks after MRI Thank you for the kind referral. If there are any questions and or concerns please do not hesitate to contact me at [phone]. Tapan Corona MD Hematology/Medical Oncology [facility] Giordano spent a total of 30 minutes on the date of the service which included preparing to see the patient, dlvo-tl-ritt patient care, completing clinical documentation, obtaining and/or reviewing separately obtained history, performing a medically appropriate examination, counseling and educating the pat ient/family/caregiver, and ordering medications, tests, or procedures. CC: documented in this encounterSelect Medical [facility]10-17-2023 History of Present illness Narrative* Osmany Lee [...] 2023 Time: 1:46 PM documented in this encounterSelect Medical Specialty [facility]10-16-2023 History of Present illness Narrative* Del Hudson [...] diarrhea. Del Hudson MD documented in this encounterSelect Medical Specialty [facility]10-06-2023 History of Present illness Narrative* Tapan Corona MD - 04/14/2023 10:19 AM EDT Images from the original note were not included. PATIENT NAME: Evan Gill CLINIC NO.: [id number] ATTENDING PHYSICIAN: Tapan Corona MD DATE OF SERVICE: April 14, [...] Range Status 04/14/2023 9.1 % Final Abs [place] Date Value Ref Range Status 04/14/2023 0.42 [...] radiation. Seeing cardiology next week Echo at [facility] reviewed and was normal. 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 If there are any questions and or concerns please do not hesitate to contact me at [phone]. Tapan Corona MD Hematology/Medical Oncology [facility] Giordano spent a total of 30 minutes on the date of the service which included preparing to see the patient, abcd-ft-anuc patient care, completing clinical documentation, obtaining and/or reviewing separately obtained history, performing a medically appropriate examination, counseling and educating the pat ient/family/caregiver, and ordering medications, tests, or procedures. CC: documented in this encounterSelect Medical [facility]10-02-2023 History of Present illness Narrative* Del Hudson [...] treatment. Del Hudson MD documented in this encounterSelect Medical Specialty [facility]10-02-2023 Nurse Note* Prachi Gill RN - 04/10/2023 11:12 AM EDT Status: Post-menopausal. Prachi Gill RN documented in this encounterSelect Medical Specialty [facility]09-29-2023 Miscellaneous Notes* Telephone Encounter - Colleen Solorio RN - 04/07/2023 4:11 PM EDT There has been a change in treatment plan and pt will no longer need a port. Krissy notified and she will cancel this. Colleen Solorio RN * Telephone Encounter - Krissy Koehler - 04/06/2023 3:36 PM EDT Patient's port has been scheduled in [place] on 04/11. Patient will need a chuck wagon driver and nurses will call patient with instructions. Patient takes a baby aspirin daily. This should not be an issue but nurses have been notified and may adjust if need. Krissy Koehler * Telephone Encounter - Kristin Martinez - 04/06/2023 2:52 PM EDT Scheduled 04/07 at 130pm. Called patient, still in hospital, has not been discharged yet, confirmeddate and time. If anything changes with discharge we will fix accordingly. * Telephone Encounter - Linda Mcfadden RN - 04/06/2023 1:46 PM EDT Clerical: Pt will need to see Dr Corona tomorrow for follow up. Please schedule and call pt w/ appointment. Thanks! Linda Mcfadden RN * Telephone Encounter - Krissy Koehler - 04/06/2023 1:38 PM EDT Per Venecia, PSS she reports [facility] called to inform they are discharging her today and will not be doing the port or EGD. I spoke w/ [facility] port scheduling with Marleni and she stated they may have a cancellation in [place] on 04/11 but this is still up in the air and she will let me know. If this date will not be available, Iwill call local. Faxed EGD order to Dr. Greene's office. Krissy Koehler * Telephone Encounter - Colleen Solorio RN - 04/05/2023 4:59 PM EDT KK: please sign orders for EGD. If [facility] is not able to do it we will get it scheduled at [place]. Thanks Colleen Solorio RN * Telephone Encounter - Krissy Koehler - 04/05/2023 4:26 PM EDT I [...] port placement in separate encounter to [facility]. Krissy Koehler * Telephone Encounter - Naheed Elias [...] Thanks Colleen Solorio RN documented in this encounterSelect Medical Specialty [facility]09-28-2023 Miscellaneous Notes* Telephone Encounter - Mylene Byers RN - 04/06/2023 3:37 PM EDT You are scheduled for a Port Placement, On 04/11/2023. You are to arrive at 2:00 PM and Report to [facility]: Enter through [facility] entrance.Proceed to the [...] if they are not done at a [facility] facility. . Director Of Trauma/Transportation: How will you be arriving for your procedure? Private car. You will need a responsible adult to accompany you to and from the procedure. If you have any questions, please call [phone] [address] [address] [facility] [place] [address] documented in this encounterSelect Medical Specialty Hospital [facility]09-28-2023 Progress note Author Agustin Negron [facility] April 06, 2023 12:42pm Note Date/Time April 06, 2023 12:42pm [facility] [address] [place], [place] [id number] Hospitalist Progress Note Signed Patient: Evan Gill MR#: [id number] : 1955 Acct:[id number] Age/Sex: 67 / F Adm Date: 3 Loc: 3T Room: [address] [place] [address] Type: ADM INOo Attending Dr: Agustin Negron [...] Dose Route Start Last Admin Trade Name Daxa PRN Reason Stop Dose Admin Amlodipine Besylate [...] Oil 1,000 mg 04/06/23 09:00 04/06/23 08:44 Brandon-3/Fish Oil 1,000 Mg Capsule PO 04/05/24 08:59 [...] 15 Mg Tablet PO 04/06/24 08:59 DAILY YUMIKO Nitroglycerin 0.4 mg 04/05/23 13:09 04/05/23 13:32 Nitroglycerin 0.4 Mg Tab.Subl SUBLINGUAL 04/04/24 13:08 0.4 mg Q5M PRN Administration Chest Pain Non-Formulary Medication 1 packet 04/06/23 09:00 Testosterone TRANSDERML 04/05/24 08:59 DAILY YUMIKO Ondansetron HCl 8 mg 04/05/23 16:46 Ondansetron [...] 3. Colon cancer The patient follows with [facility], we will consult Hopefully she can be discharged today Documented By: Agustin Negron MD 04/06/23 1240 Signed By: <Electronically signed by Agustin Negron MD> 04/06/23 1242 [facility] Work Phone: 1(961) 299-301109-28-2023 Consult note Author Marcos Rios [facility] April 06, 2023 10:58am Note Date/Time April 06, 2023 10:55am [facility] [address] [place] [address] Cardiology Consult Note Signed Patient: Evan Gill MR#: [id number] : 1955 Acct:[id number] Age/Sex: 67 / F Adm Date: 3 Loc: Room: [address] [place] [address] Type: ADM INOo Attending Dr: Agustin Negron MD Copies to: DO Agustin Carrillo MD Mourhaf A Traboulssi, MD~ Cardiology HPI History of Present Illness [...] and no additional complaints, except as documented [facility] Medical History (Updated 04/06/23 @ 10:56 by [...] bone health 11/02/18 [History Confirmed 04/05/23] omega 9-vok-khw-fish oil 1,000 mg (120 mg-180 mg) capsule [...] x10E3/uL Lymph # (Auto) 2.6 (1.00-4.8) x10E3/uL [place] # (Auto) 0.5 (0.0-0.8) x10E3/uL Eos # [...] signed by MD Marcos Rios> 04/06/23 1058 [facility] Work Phone: 1(359) 473-235709-28-2023 Miscellaneous Notes* Telephone Encounter - Linda Mcfadden RN - 04/06/2023 12:43 PM EDT Images from the original note were not included. Tapan Corona MD You 6 minutes ago (12:36 PM) Thanks. * Telephone Encounter - Linda Mcfadden RN - 04/06/2023 11:58 AM EDT Consult received. Dr Corona recommends pt be discharged and f/u next day in clinic. Spoke w/ KAYA Lingcharge account identification clerk. Notified him of the above. States there [...] today. Sushil verbalizes understanding and agrees. Linda Mcfadden RN * Telephone Encounter - Linda Mcfadden RN - 04/06/2023 10:42 AM EDT 's request for EGD phoned to KAYA Lingcharge account identification clerk on 3T. He will inform the hospitalist. Linda Mcfadden RN * Telephone Encounter - Tapan Corona MD - 04/06/2023 8:56 AM EDT Can she get an EGD while inpatient? * Telephone Encounter - Amber Galeana - 04/06/2023 8:05 AM EDT Records scanned. [...] for EGD. Pt has been admitted to [facility] for further cardiac workup. Will keep getting [...] issue being urgent. Pt will go to [facility]. Report called to ER and recent progress notes faxed as well. Colleen Solorio RN documented in this encounterSelect Medical Specialty [facility]09-27-2023 History and physical note Author Lynnette Hare [facility] April 05, 2023 8:54pm Note Date/Time April 05, 2023 8:54pm [facility] [address] [place] [address] Hospitalist H&P Signed Patient: Evan Gill MR#: [id number] : 1955 Acct:[id number] Age/Sex: 67 / F Adm Date: 3 Loc: Room: [address] [place] [address] Type: ADM INOo Attending Dr: Lynnette Hare DO Copies to: DO Lynnette Carrillo, ~ HPI DATE OF EXAMINATION: 04/05/23 CHIEF COMPLAINT: [...] cancer that she sees Dr. Houser at [facility] oncology. Recently has switched her PPI and [...] negative unless noted below or in HPI [facility] Medical History (Updated 04/05/23 @ 18:11 by Michael Lares, RN) Arthritis Colorectal cancer Depression Hypertension Incontinence Menopause Skin cancer melanoma Surgical History (Updated 04/05/23 @ 18:11 by Michael Lares, RN) History of carpal tunnel release of [...] bone health 11/02/18 [History Confirmed 04/05/23] omega 8-jlg-kco-fish oil 1,000 mg (120 mg-180 mg) capsule [...] % (Auto) 38.8 % (.) 04/05/23 13:24 [place] % (Auto) 7.5 % (.) 04/05/23 13:24 Eos % (Auto) 1.1 % (.) 04/05/23 13:24 Baso % (Auto) 0.7 % (.) 04/05/23 13:24 Nucleat RBC Rel Count 0.1 /100 WBC (0-0.5) 04/05/23 13:24 Neut # (Auto) 3.4 x10E3/uL (1.8-7.7) 04/05/23 13:24 Lymph # (Auto) 2.6 x10E3/uL (1.00-4.8) 04/05/23 13:24 [place] # (Auto) 0.5 x10E3/uL (0.0-0.8) 04/05/23 13:24 [...] stay (# of days): 2 Documented By: Lynnette Hare DO 04/05/23 47 Signed By: <Electronically signed by Lynnette Hare DO> 04/05/232053 [facility] Work Phone: 1(337) 357-628609-25-2023 Miscellaneous Notes* Telephone Encounter - Colleen Solorio [...] comply. Colleen Solorio RN documented in this encounterSelect Medical Special[facility]09-25-2023 Nurse Note* Prachi Gill RN - 04/03/2023 12:02 PM EDT Status: Post-menopausal. Prachi Gill RN documented in this encounterSelect Medical Specialty [facility]09-25-2023 History of Present illness Narrative* Del Hudson [...] outlined. Del Hudson MD documented in this encounterSelect Medical Specialty [facility]09-13-2023 Nurse Note* Prachi Gill RN - 03/22/2023 3:42 PM EDT Radiation Therapy - Patient Education Note PATIENT NAME: Evan Gill PATIENT March 22, 2023 [facility] FACILITY/LOCATION: [facility] READINESS TO LEARN Cognitive Ability: Alert and [...] need for social work, van service, and painter and body work. Pt haschosen to refuse painter and body work eval at this time. Signed by: Prachi Gill RN documented [facility] History of Present illness Narrative* Tapan Corona MD - 03/22/2023 2:42 PM EDT Images from the original note were not included. PATIENT NAME: Evan Gill CLINIC NO.: [id number] ATTENDING PHYSICIAN: Tapan Corona MD DATE OF SERVICE: March 22, [...] do not hesitate to contact me at [phone]. Tapan Corona MD Hematology/Medical Oncology [facility] Giordano spent a total of 30 minutes on the date of the service which included preparing to see the patient, [id number] patient care, completing clinical documentation, obtaining and/or reviewing separately obtained history, performing a medically appropriate examination, counseling and educating the pat ient/family/caregiver, and ordering medications, tests, or procedures. CC: documented in this encounterSelect [facility]-13-2023 History of Present illness Narrative* Colleen Solorio [...] Yes Pt has picked up medication from [facility] pharmacy DRUG-SPECIFIC EDUCATION: 1.) Verified patient knows [...] teaching topics as needed. Colleen Solorio, RN User Experience Designer Pre Chemo Patient identified by name and date of . YES Confirmed date and time for chemotherapy ? YES Other appointments (labs, imaging) discussed? 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 Colleen Solorio, RN documented in this encounterSelect [facility]-13-2023 History of Present illness Narrative* Del Hudson MD - 03/22/2023 12:00 AM EDT EVAN GILL [id number] 03/22/2023 [facility] Department of Radiation Oncology Treatment Planning Note [...] distribution, and/or ports and DVH. Electronically Signed Monty Hudson M.D. 1:12 AM documented in this encounterSelect Medical [facility]09-12-2023 Miscellaneous Notes* Telephone Encounter - Colleen Solorio RN - 03/21/2023 2:30 PM EDT Please sign pending antiemetics. Thanks Colleen Solorio RN * Telephone Encounter - Tapan Corona MD - 03/21/2023 2:06 PM EDT RX sent and the instruction is M-F during radiation and she needs to stop her PPI * Telephone Encounter - Cloleen Solorio RN - 03/21/2023 1:35 PM EDT Message received from radiation nurse stating Dr Hudson is planning on starting radiation on 03/29.Please place orders for Xeloda so our pharmacy can work on filling this if that's the plan. Thanks Colleen Solorio RN documented in this encounterSelect Medical [facility]09-07-2023 History and physical note * Laisha Singer [...] 2023 TIME: 12:45 PM documented in this encounterSelect Medical Specialty [facility]09-06-2023 Miscellaneous Notes* [facility] - Joel Enciso precision farming specialist - 03/15/2023 12:00 PM EDT Radiology Service Progress Note PATIENT NAME: Evan Gill DATE OF SERVICE: March 15, 2023 TIME: 1:03 PM PATIENT IDENTITY VERIFICATION COMPLETED USING TWO (2) [...] and Intact, Site disposition Discontinued SIGNED BY: NUNU Vivar March 15, 2023 1:03 PM documented in this encounterSelect Medical [facility]09-06-2023 Progress note* [facility] - Joel Enciso MRI Tech - 03/15/2023 12:00 PM EDT Radiology Service Progress Note PATIENT NAME: Evan Gill DATE OF SERVICE: March 15, 2023 TIME: 1:03 PM PATIENT IDENTITY VERIFICATION COMPLETED USING TWO (2) [...] and Intact, Site disposition Discontinued SIGNED BY: NUNU Vivar March 15, 2023 1:03 PM [facility]-30-[facility]23 History of Present illness Narrative* Del Hudson [...] GI: See HPI : urination is normal AUTOMATIC PACKER OPERATOR: denies abnormal vaginal bleeding, no vaginal discharge, no breast mass/tenderness SKIN: no rash NEURO: no numbness or paresthesias and no weakness of the extremities As noted in HPI AUTOMATIC PACKER OPERATOR: Pain: 0 on a 0-10 pain scale. [...] noted Hematologic: No signs of active bleeding. AUTOMATIC PACKER OPERATOR: Deferred Rectal: Deferred RADIOLOGY/LABORATORY DATA: see HPI [...] defined for this encounter. documented in this encounterSelect Medical Specialty [facility]08-29-2023 Miscellaneous Notes* Telephone Encounter - Colleen Holland - 03/07/2023 9:42 AM EDT Patient is scheduled for 03/15 give when patient is here tommorow. * Telephone Encounter - Brisa Zapata LPN - 03/07/2023 8:03 AM EDT MRI pelvis order pending your approval. Brisa Zapata LPN documented in this encounterSelect Medical Specialty [facility]08-01-2023 Evaluation note* Encounter Date Diagnosis Assessment Notes Treatment Notes Treatment Clinical Notes Feb, Change in bowel habits (ICD-10 - R19.4) Feb, Flatulence (ICD-10 - R14.3) Feb, Bloody stools (ICD-10 - K92.1) [facility] Other 04-24-2023 Evaluation note* Encounter Date Diagnosis Assessment Notes Treatment Notes Treatment Clinical Notes Oct, Anxiety and depression (ICD-10 - F41.8) Patient appears to be going great on the above medication. Patient is currently trying to get this medication through [employer] personnel assistant. Oct, Hypertension (ICD-10 - I10) The patients blood pressure was WNL upon check in. Therefore, patient is to continue with the above medication. Oct, Primary osteoarthritis of right knee (ICD-10 - M17.11) Patient is scheduled to have right knee replacement with Dr. Lemon 12/07/22, patient will be having PST done in [place] in two weeks. Patient did get cardiac clearance from Dr. Calhoun. In my medical opinion, the patient is clear to proceed with surgery. [facility] Other 03-27-2023 Evaluation note* Encounter Date Diagnosis [...] to have right knee replaced with Dr. Valle end of November. Patient will need cardiac clearance for this. We will send a referral to [facility] for the clearance closer to her surgery date. Sep, Atrial fibrillation (ICD-10 - I48.91) Referral intiated to [facility]. Patient had stress test in 2016 with at maximum exercise had a burst of atrial fibrillation. Placed on aspirin and followed by cardiology. We will have cardiology clearance prior to her upcoming knee replacement surgery. [facility] Other 02-27-2023 Evaluation note* Encounter Date Diagnosis Assessment Notes Treatment Notes Treatment Clinical Notes Aug, Anxiety and depression (ICD-10 - F41.8) [facility] Other 02-09-2023 Evaluation note* Encounter Date Diagnosis [...] sterile technique. Patient tolerated the injection well. [facility] Other 02-08-2023 Evaluation note* Encounter Date Diagnosis Assessment Notes Treatment Notes Treatment Clinical Notes Aug, Anxiety and depression (ICD-10 - F41.8) [facility] Other 11-09-2022 Evaluation note* Encounter Date Diagnosis Assessment Notes Treatment Notes Treatment Clinical Notes May, Bilateral primary osteoarthritis of knee (ICD-10 - M17.0) May, Other After consent was obtained, the right knee was injected with Zilretta using sterile technique. Patient tolerated the injection well. Follow-up in 3 months. [facility] Other 11-02-2022 Evaluation note* Encounter Date Diagnosis Assessment Notes Treatment Notes Treatment Clinical Notes May, Bilateral primary osteoarthritis of knee (ICD-10 - M17.0) May, Other 1. We had a sue g discussion with the patient today concerning [...] week for her right knee Zilretta injection. [facility] Other 10-12-2022 Evaluation note* Encounter Date Diagnosis Assessment Notes Treatment Notes Treatment Clinical Notes Apr, Stress incontinence in female (ICD-10 - N39.3) Apr, GERD (gastroesophageal reflux disease) (ICD-10 - K21.9) [facility] Other 08-05-2022 Evaluation note* Encounter Date Diagnosis Assessment Notes Treatment Notes Treatment Clinical Notes Feb, Pain in right knee (ICD-10 - M25.561) Feb, Pain in left knee (ICD-10 - M25.562) Feb, Bilateral primary osteoarthritis of knee (ICD-10 - M17.0) Feb, Other 1. We had a sue g discussion with the patient today concerning [...] injection well. 6. Follow up 3 months [facility] Other Chief complaint Narrative - ReportedEVAN GILL is being seen for a consultation for Charles Bazzi- POC R Knee replacement 12/07/22.- [facility] [address] DO Work Phone: Consult [place] [phone] Orthopedic Consult Note Signed Patient: Evan Gill MR#: [id number] : 1955 Acct:[id number] Age/Sex: 68 / F Adm Date: 4 Loc: ER Room: Type: [facility] ER Attending Dr: Copies to: Charles Bazzi,DO Jorge A Haji, DO Chris Henning APRN~ History of Present Illness HPI Consult date: 05/22/2024 Consult reason: joint pain History of present illness: Roman is a pleasant 68-year-old female who was seen in emergency department forright middle fingerswelling. She was seen previously the day before at an outside hospital where a superficial I&Dwas performed on the dorsal aspect of her finger where no purulence was noted. Patient presents with worsening symptoms of that. She states that there was mild pain more proximal in the finger however most of the symptoms are still on the dorsal aspect surrounding the nailbed of the long finger. She denies any numbness or tingling. She states she did have a paper cut that could have started the situation. She denies any fevers or chills. She has no other issues. Review of Systems Review of Systems All other systems reviewed & are negative unless noted below or in HPI [facility] Medical History (Updated 05/23/24 @ 10:23 by Chris Henning APRN) Screening mammogram for breast cancer Abnormal bone density screening Encounter for screening for vascular disease Encounter for screening colonoscopy Primary osteoarthritis of right knee Hemorrhoids Carpal tunnel syndrome of right wrist Rectal cancer Colorectal cancer Menopause Depression Skin [...] Allergies Allergies No Known Allergies Allergy (Verified 05/23/24 08:25) Home Medications aspirin 81 mg tablet,delayed release 81 mg PO DAILY health maintenance 11/02/18 [History Confirmed 05/23/24] omega 6-pyi-tkp-fish oil 1,000 mg (120 mg-180 mg) capsule (Fish Oil) 1 cap PO DAILY 11/02/18 [History Confirmed 05/23/24] lactobacillus comb no.10 20 billion cell capsule (Probiotic) 20,000 mmu cells PODAILY 03/06/23 [History Confirmed 05/23/24] ondansetron 8 mg disintegrating tablet 8 mg PO Q8H PRN Nausea 04/05/23 [History Confirmed 05/23/24] denosumab 60 mg/mL subcutaneous syringe (Prolia) 60 mg subcut [id number] 06/26/23 [History Confirmed 05/23/24] vortioxetine 10 mg tablet 10 mg PO DAILY 10/30/23 [History Confirmed 05/23/24] alprazolam 0.25 mg tablet (Xanax) 0.25 mg PO BID 30 days #30 tabs 11/23/23 [Rx Confirmed 05/23/24] gabapentin 100 mg capsule 100 mg PO TID 11/23/23 [History Confirmed 05/23/24] meloxicam 15 mg tablet 15 mg PO DAILY 90 days #90 tabs 04/30/24 [Rx Confirmed 05/23/24] omeprazole 40 mg capsule,delayed release 40 mg PO DAILY #90 caps 05/08/24 [Rx Confirmed 05/23/24] oxybutynin chloride 15 mg tablet,extended release 24 hr 15 mg PO DAILY #90 tabs 05/08/24 [Rx Confirmed 05/23/24] cephalexin 500 mg capsule 500 mg PO BID 05/22/24 [History Confirmed 05/23/24] hydrocodone 5 mg-acetaminophen 325 mg tablet 1 tab PO Q8HR PRN pain 2 days #7 tabs 05/22/24 [Rx Confirmed 05/23/24] ondansetron HCl 4 mg tablet 4 mg PO Q8HR PRN nausea and vomiting #7 tabs 05/22/24 [Rx Confirmed 05/23/24] oxycodone-acetaminophen 5 mg-325 mg tablet 1 tab PO DIRECTED 05/22/24 [History Confirmed 05/23/24] sulfamethoxazole 800 mg-trimethoprim 160 mg tablet 1 tab PO DIRECTED 05/22/24[History Confirmed 05/23/24] Exam Physical Exam Vital Signs: Temp Pulse Resp BP Pulse Ox O2 Del Method 97.9 F 80 18 122/60 98 Room Air 05/22/24 11:56 05/22/24 14:48 05/22/24 14:48 05/22/24 14:48 05/22/24 14:48 05/22/24 14:48 Examination of the right hand shows ecchymosis and swelling on the dorsal aspectof the long finger o over the distal phalanx and part of the middle phalanx. Previous stab incision healing with no signs of drainage or purulence. No significant tenderness in the PIP joint, MCP joint and proximal. No s ignificanttenderness along the flexor surface of the finger and hand. Tenderness palpation over theDIP joint. Soft tissue swelling but no obvious fluctuance noted. [place] normal. AIN, PIN, radial, median, ulnar nerves intact. Sensation intact to light touch C5-T1. Radial artery palpable. Results - Orthopedics Lab Results 05/22/24 12:22 05/22/24 12:22 Labs: Laboratory Results - Last 48 hrs. 05/22/24 12:22: Corrected WBC 10.4, Uncorrected WBC Count 10.4, RBC 3.85, Hgb 11.7 L, Hct 34.5, MCV89.5, MCH 30.3, MCHC 33.9, RDW 14.3, Plt Count 265, MPV 6.8, Neut % (Auto) 81.9, Lymph % (Auto) 9.0, [place] % (Auto) 7.4, Eos % (Auto) 1.1, Baso % (Auto) 0.6, Nucleat RBC Rel Count 0.0, Neut # (Auto) 8.5 H, Lymph # (Auto) 0.9 L, [place] # (Auto) 0.8, Eos # (Auto) 0.1, Baso # (Auto) 0.1, Monocyte Dist Width 19.47, PHA Creatinine Clear 63.82, Sodium 139, Potassium 3.6, Chloride 106, Carbon Dioxide 23.6,Anion Gap 13.0, BUN 18, Creatinine 0.56 L, Est GFR (CKD-EPI) > 60.0, Glucose 129 H, Calcium 8.2 L H & H 05/22/24 Range/Units 12:22 Hgb 11.7 L (11.8-15.4) g/dL Hct 34.5 (34.0-46.4) % All other labs are normal. Imaging & Diagnostic Results Imaging/Diagnostics: Three-view radiographs of the right long finger obtained in the emergency department on 05/22/2024 personally interpreted by me show diffuse degenerative changes particularly in the DIP joint of the long finger with osteophyte formation and previous ossification of possible extensor tendon. Assessment/Plan (1) Cellulitis of right middle finger: Code(s): L03.011 - Cellulitis of right finger Plan Patient seen and evaluated. I do not believe this is flexor tenosynovitis giventhe patient's symptoms. Patient does not have any other [place] signs indicative of flexor tenosynovitis. She does have appreciative soft tissue swelling and ecchymosis on the dorsal aspect of the distal aspect of the middle finger. Is unclear if there is actual purulence in this swelling. The previousemergency department did not do a routine paronychia I&D which I recommended to the PA that was caring for around. I think we can continue to try oral antibiotics. I do recommend elevating this hand. I discussed red flag symptomsfor flexor tenosynovitis as well as other issues and she can return to the emergencydepartment if those occur. All questions were answered. Documented By: Jorge A Haji DO 05/22/241811 Signed By: 05/23/24 1311 [facility] Author Jorge A Haji [facility] Note Date/Time May 23, 2024 1:11pm [facility] ENTER [address] [place] [address] Orthopedic Consult Note Signed Patient: Evan Gill MR#: [id number] : 1955 Acct:[id number] Age/Sex: 68 / F Adm Date: 4 Loc: ER Room: Type: [facility] ER Attending Dr: Copies to: DO Jorge A Carrillo DO Timothy A Dymond, APRN~ History of Present Illness HPI Consult date: 05/22/2024 Consult reason: joint pain History of present illness: Roman is a pleasant 68-year-old female who was seen in emergency department forright middle finger swelling. She was seen previously the day before at an outside hospital where a superficial I&D was performed on the dorsal aspect of her finger where no purulence was noted. Patient presents with worsening symptoms of that. She states that there was mild pain more proximal in the finger however most of the symptoms are still on the dorsal aspect surrounding the nailbed of the long finger. She denies any numbness or tingling. She states she did have a paper cut that could have started the situation. She denies any fevers or chills. She has no other issues. Review of Systems Review of Systems All other systems reviewed & are negative unless noted below or in HPI [facility] Medical History (Updated 05/23/24 @ 10:23 by Chris Henning APRN) Screening mammogram for breast cancer Abnormal bone density screening Encounter for screening for vascular disease Encounter for screening colonoscopy Primary osteoarthritis of right knee Hemorrhoids Carpal tunnel syndrome of right wrist Rectal cancer Colorectal cancer Menopause Depression Skin [...] Allergies Allergies No Known Allergies Allergy (Verified 05/23/24 08:25) Home Medications aspirin 81 mg tablet,delayed release 81 mg PO DAILY health maintenance 11/02/18 [History Confirmed 05/23/24] omega 4-nnc-fbl-fish oil 1,000 mg (120 mg-180 mg) capsule (Fish Oil) 1 cap PO DAILY 11/02/18 [History Confirmed 05/23/24] lactobacillus comb no.10 20 billion cell capsule (Probiotic) 20,000 mmu cells PODAILY 03/06/23 [History Confirmed 05/23/24] ondansetron 8 mg disintegrating tablet 8 mg PO Q8H PRN Nausea 04/05/23 [History Confirmed 05/23/24] denosumab 60 mg/mL subcutaneous syringe (Prolia) 60 mg subcut [id number] 06/26/23 [History Confirmed 05/23/24] vortioxetine 10 mg tablet 10 mg PO DAILY 10/30/23 [History Confirmed 05/23/24] alprazolam 0.25 mg tablet (Xanax) 0.25 mg PO BID 30 days #30 tabs 11/23/23 [Rx Confirmed 05/23/24] gabapentin 100 mg capsule 100 mg PO TID 11/23/23 [History Confirmed 05/23/24] meloxicam 15 mg tablet 15 mg PO DAILY 90 days #90 tabs 04/30/24 [Rx Confirmed 05/23/24] omeprazole 40 mg capsule,delayed release 40 mg PO DAILY #90 caps 05/08/24 [Rx Confirmed 05/23/24] oxybutynin chloride 15 mg tablet,extended release 24 hr 15 mg PO DAILY #90 tabs 05/08/24 [Rx Confirmed 05/23/24] cephalexin 500 mg capsule 500 mg PO BID 05/22/24 [History Confirmed 05/23/24] hydrocodone 5 mg-acetaminophen 325 mg tablet 1 tab PO Q8HR PRN pain 2 days #7 tabs 05/22/24 [Rx Confirmed 05/23/24] ondansetron HCl 4 mg tablet 4 mg PO Q8HR PRN nausea and vomiting #7 tabs 05/22/24 [Rx Confirmed 05/23/24] oxycodone-acetaminophen 5 mg-325 mg tablet 1 tab PO DIRECTED 05/22/24 [History Confirmed 05/23/24] sulfamethoxazole 800 mg-trimethoprim 160 mg tablet 1 tab PO DIRECTED 05/22/24[History Confirmed 05/23/24] Exam Physical Exam Vital Signs: Temp Pulse Resp BP Pulse Ox O2 Del Method 97.9 F 80 18 122/60 98 Room Air 05/22/24 11:56 05/22/24 14:48 05/22/24 14:48 05/22/24 14:48 05/22/24 14:48 05/22/24 14:48 Examination of the right hand shows ecchymosis and swelling on the dorsal aspectof the long finger o over the distal phalanx and part of the middle phalanx. Previous stab incision healing with no signs of drainage or purulence. No significant tenderness in the PIP joint, MCP joint and proximal. No significanttenderness along the flexor surface of the finger and hand. Tenderness palpation over the DIP joint. Soft tissue swelling but no obvious fluctuance noted. [place] normal. AIN, PIN, radial, median, ulnar nerves intact. Sensation intact to light touch C5-T1. Radial artery palpable. Results - Orthopedics Lab Results 05/22/24 12:22 05/22/24 12:22 Labs: Laboratory Results - Last 48 hrs. 05/22/24 12:22: Corrected WBC 10.4, Uncorrected WBC Count 10.4, RBC 3.85, Hgb 11.7 L, Hct 34.5, MCV 89.5, MCH 30.3, MCHC 33.9, RDW 14.3, Plt Count 265, MPV 6.8, Neut % (Auto) 81.9, Lymph % (Auto) 9.0, [place] % (Auto) 7.4, Eos % (Auto) 1.1, Baso % (Auto) 0.6, Nucleat RBC Rel Count 0.0, Neut # (Auto) 8.5 H, Lymph # (Auto) 0.9 L, [place] # (Auto) 0.8, Eos # (Auto) 0.1, Baso # (Auto) 0.1, Monocyte Dist Width 19.47, PHA Creatinine Clear 63.82, Sodium 139, Potassium 3.6, Chloride 106, Carbon Dioxide 23.6, Anion Gap 13.0, BUN 18, Creatinine 0.56 L, Est GFR (CKD-EPI) > 60.0, Glucose 129 H, Calcium 8.2 L H & H 05/22/24 Range/Units 12:22 Hgb 11.7 L (11.8-15.4) g/dL Hct 34.5 (34.0-46.4) % All other labs are normal. Imaging & Diagnostic Results Imaging/Diagnostics: Three-view radiographs of the right long finger obtained in the emergency department on 05/22/2024 personally interpreted by me show diffuse degenerative changes particularly in the DIP joint of the long finger with osteophyte formation and previous ossification of possible extensor tendon. Assessment/Plan (1) Cellulitis of right middle finger: Code(s): L03.011 - Cellulitis of right finger Plan Patient seen and evaluated. I do not believe this is flexor tenosynovitis giventhe patient's symptoms. Patient does not have any other [place] signs indicative of flexor tenosynovitis. She does have appreciative soft tissue swelling and ecchymosis on the dorsal aspect of the distal aspect of the middle finger. Is unclear if there is actual purulence in this swelling. The previousemergency department did not do a routine paronychia I&D which I recommended to the PA that was caring for around. I think we can continue to try oral antibiotics. I do recommend elevating this hand. I discussed red flag symptomsfor flexor tenosynovitis as well as other issues and she can return to the emergency department if those occur. All questions were answered. Documented By: Jorge A Haji DO 05/22/241811 Signed By: <Electronically signed by Jorge A Haji DO> 05/23/24 1311 [facility] Work Phone: Discharge summary Author Jm Trujillo [facility] October 28, 2023 12:30pm Note Date/Time October 28, 2023 12: 27pm [facility] EN[facility] [address] [place] [address] Discharge Summary Signed Patient: Evan Gill MR#: [id number] : 1955 Acct:[id number] Age/Sex: 68 / F Adm Date: 4 Loc: 4N Room: [address] [place] [address]: Jm Trujillo DO Copies to: DO Laisha Carrillo MD, DO~ Providers Date of Discharge: 10/28/23 Discharging Provider: [...] assisted low anterior resection for rectal cancer [facility], awaiting plans for ileostomy takedownin the next month or so. Presentation to hospital with intractable abdominal pain when the iliostomy suddeny stopped having any output. Summary Hospital Course Hospital course: This is a 68-year-old woman with a history of rectal cancer. Several months agoshe has undergone a laparoscopic assisted low anterior resection with rectal cancer at the [facility]. She has had a diverting loop [...] itself. The ER physicians did contact the [facility] because her colorectal surgeon is based there but there were no beds available at that hospital. Therefore she was [facility] the [facility]. She was seen in consultation by general [...] 1 TABLET BY MOUTH ONCE DAILY omega 2-mkj-azu-fish oil [Fish Oil] 1,000 mg (120 mg-180 [...] Prolia 60 mg/mL Syringe 60 mg SUBCUT [id number] Patient Comments: Last received in November 2022 [...] % (Auto) 66.8, Lymph % (Auto) 13.6, [place] % (Auto) 11.9, Eos % (Auto) 7.1, Baso % (Auto) 0.6, Nucleat RBC Rel Count 0.1, Neut # (Auto) 3.8, Lymph # (Auto) 0.8 L, [place] # (Auto) 0.7, Eos # (Auto) 0.4, Baso # (Auto) 0.0, PHA Creatinine Clear 61.83, Sodium 141, Potassium 3.9, Chloride 104, Carbon Dioxide 31.8 H, Anion Gap 9.1, BUN 11, Creatinine 0.60, Est GFR (CKD-EPI) > 60.0 Documented By: Jm Trujillo, 1217 Signed By: <Electronically signed by Jm Trujillo, DO> 10/28/23 1230 [facility] Work Phone: evaluation noteNo assessment information available [facility] Work Phone: evaluation noteNo InformationNort [employer] Other evaluation note* Diagnosis Rectal adenocarcinoma (HCC)- Primary Malignant neoplasm of rectum [facility]* Diagnosis Rectal adenocarcinoma (HCC)- Primary Malignant neoplasm of rectum Rectal mass- Primary Other symptoms involving digestive system documented in this encounter [facility] note* Diagnosis Rectal cancer (HCC)- Primary Malignant neoplasm of rectum [facility]* Diagnosis Rectal cancer (HCC)- Primary Malignant neoplasm of rectum [facility]* Diagnosis Rectal adenocarcinoma (HCC)- Primary Malignant neoplasm of rectum documented [facility] Diagnosis Rectal adenocarcinoma (HCC)- Primary Malignant neoplasm of rectum [facility] Diagnosis Onset Date Resolution Status Chest pain acute [facility] Work Phone: evaluvijsp note* Diagnosis Onset Date Resolution Status Chest pain acute Colorectal cancer acute [facility] Work Phone: evaluation note* Diagnosis Rectal cancer (HCC)- Primary Malignant neoplasm of rectum Dyspepsia Dyspepsia and other specified disorders of function of stomach documented in this encounter [facility] note* Diagnosis Rectal adenocarcinoma (HCC)- Primary Malignant neoplasm of rectum documented in this encounter [facility] note* Diagnosis Rectal cancer (HCC)- Primary Malignant neoplasm of rectum documented in this encounter [facility] note* Diagnosis Rectal adenocarcinoma (HCC)- Primary Malignant neoplasm of rectum documented in this encounter [facility] note* Diagnosis Muscle soreness- Primary Mylagia and myositis, unspecified documented in this encounter [facility] note* Diagnosis Rectal cancer (HCC)- Primary Malignant neoplasm of rectum documented in this encounter [facility] note* Diagnosis Dysuria- Primary documented in this encounter [facility] note* Diagnosis Dysuria- Primary Rectal adenocarcinoma (HCC) Malignant neoplasm of rectum documented in this encounter [facility] note* Diagnosis Muscle soreness- Primary Mylagia and myositis, unspecified documented in this encounter [facility] note* Diagnosis Rectal adenocarcinoma (HCC)- Primary Malignant neoplasm of rectum documented in this encounter [facility] note* Diagnosis Rectal adenocarcinoma (HCC)- Primary Malignant neoplasm of rectum documented in this encounter [facility] note* Diagnosis Screen for colon cancer- Primary Special screening for malignant neoplasms, colon Rectal cancer (HCC) Malignant neoplasm of rectum documented in this encounter [facility] note* Diagnosis Rectal cancer (HCC) Malignant neoplasm of rectum documented in this encounter [facility] note* Diagnosis Rectal cancer (HCC)- Primary Malignant neoplasm of rectum documented in this encounter [facility] note* Diagnosis Rectal cancer (HCC)- Primary Malignant neoplasm of rectum documented in this encounter [facility] note* Diagnosis Other chest pain- Primary Essential hypertension Unspecified essential hypertension Colorectal cancer (CMS/HCC) Malignant neoplasm of colon, unspecified site BMI 24.0-24.9, adult History of atrial fibrillation Personal history of other diseases of circulatory system documented in this encounter [facility] Work Phone: Evaluation note* Diagnosis Pre-op examination- Primary Preoperative examination, unspecified Atrial fibrillation, unspecified type (HCC) Essential hypertension Unspecified essential hypertension Hyperlipidemia, unspecified hyperlipidemia type Gastroesophageal reflux disease without esophagitis Esophageal reflux Other iron deficiency anemia Rectal cancer (HCC) Malignant neoplasm of rectum Mixed anxiety depressive disorder Dysthymic disorder Rectal cancer (HCC) Malignant neoplasm of rectum [facility] Diagnosis Rectal cancer (HCC)- Primary Malignant neoplasm of rectum documented in this encounter [facility] note* Diagnosis Follow-up examination after colorectal surgery- Primary Follow-up examination, following other surgery [facility] Diagnosis Onset Date Resolution Status SBO (small bowel obstruction) acute [facility] Work Phone: evaluation note* Diagnosis Onset Date Resolution Status Ileostomy status acute Rectal cancer acute SBO (small bowel obstruction) acute [facility] Work Phone: evaluation note* Diagnosis History of rectal cancer Personal history of malignant neoplasm of rectum, rectosigmoid junction, and anus documented in this encounter [facility] note* Diagnosis Muscle soreness- Primary Mylagia and myositis, unspecified documented in this encounter [facility] note* Diagnosis History of rectal cancer- Primary Personal history of malignant neoplasm of rectum, rectosigmoid junction, and anus documented [facility] Diagnosis Onset Date Resolution Status SBO (small bowel obstruction) resolved [facility] Work Phone: evaluation note* Diagnosis Onset Date Resolution Status SBO (small bowel obstruction) resolved Acute UTI acute Partial small bowel obstruction acute [facility] Work Phone: evaluation note* Diagnosis Onset Date Resolution Status Ileostomy status acute SBO (small bowel obstruction) resolved Abdominal pain acute Acute UTI acute Complete small bowel obstruction acute Partial small bowel obstruction acute Vomiting acute [facility] Work Phone: Evaluation note* Diagnosis Pain in right hip- Primary Pain in joint, pelvic region and thigh documented in this encounter [facility] note* Diagnosis Follow-up examination after colorectal surgery- Primary Follow-up examination, following other surgery documented [facility] this [facility]* Diagnosis Rectal adenocarcinoma (HCC)- Primary Malignant neoplasm of rectum Follow-up examination after colorectal surgery- Primary Follow-up examination, following other surgery documented in this encounter [facility] note* Diagnosis Follow-up examination after colorectal surgery- Primary Follow-up examination, following other surgery Rectal cancer (HCC) 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 documented in this encounter [facility] note* Diagnosis History of rectal cancer- Primary Personal history of malignant neoplasm of rectum, rectosigmoid junction, and anus documented in this encounter [facility] note* Diagnosis Rectal adenocarcinoma (HCC) Malignant neoplasm of rectum Pre-op examination- Primary Preoperative examination, unspecified Atrial fibrillation, unspecified type (HCC) Essential hypertension Unspecified essential hypertension Hyperlipidemia, unspecified hyperlipidemia type Gastroesophageal reflux disease without esophagitis Esophageal reflux Other iron deficiency anemia Rectal cancer (HCC) Malignant neoplasm of rectum Mixed anxiety depressive disorder Dysthymic disorder documented in this encounter [facility] note* Diagnosis Pre-op examination- Primary Preoperative examination, unspecified Atrial fibrillation, unspecified type (HCC) Essential hypertension Unspecified essential hypertension Hyperlipidemia, unspecified hyperlipidemia type Gastroesophageal reflux disease without esophagitis Esophageal reflux Other iron deficiency anemia Rectal cancer (HCC) Malignant neoplasm of rectum Mixed anxiety depressive disorder Dysthymic disorder Rectal adenocarcinoma (HCC)- Primary Malignant neoplasm of rectum documented in this encounter [facility] note* Diagnosis Rectal adenocarcinoma (HCC)- Primary Malignant neoplasm of rectum documented in this encounter [facility] note* Diagnosis Pre-op examination- Primary Preoperative examination, unspecified Atrial fibrillation, unspecified type (HCC) Essential hypertension Unspecified essential hypertension Hyperlipidemia, unspecified hyperlipidemia type Gastroesophageal reflux disease without esophagitis Esophageal reflux Other iron deficiency anemia Rectal cancer (HCC) Malignant neoplasm of rectum Mixed anxiety depressive disorder Dysthymic disorder History of rectal cancer- Primary Personal history of malignant neoplasm of rectum, rectosigmoid junction, and anus documented in this encounter [facility] note* Diagnosis Onset Date Resolution Status Admit Date Cellulitis of right middle finger acute May 30, 2 024 11:20am [facility] Work Phone: History general Narrative - Reported* Type Description Date Medical History colonoscopy 2004 Medical History 2004 EKG done Medical History 2008 pelvic exam done - follows with her [facility] Medical History 2008 mammogram done - follows her [facility] Medical History 2004 CT scan Medical History [...] Medical History 11/09/18 Cystoscopy w/ Dr. Gael lim Medical History 10/[address] Mayorga Surgical History gallbladder Surgical History ankle and foot Surgical History screening colonocopy -Dr. La Nena alarcon 06/22/15 Hospitalization History see above [facility] Other [facility] general Narrative - Reported* Type Description Date Medical History colonoscopy 2005 Medical History 2005 EKG done Medical History 2009 pelvic exam done - follows with her [facility] Medical History 2008 mammogram done - follows wi th her [facility] Medical History 2004 CT scan Medical History [...] test-abnormal Medical History 11/09/18 Cystoscopy w/ Dr. Mayo r Medical History 10/[address] Mayorga Medical History 05/20/22 Mammogram Medical History NON SMOKER Surgical History gallbladder Surgical History ankle and foot Surgical History screening colonocopy -Dr. La Nena alarcon 06/22/15 Hospitalization History see above [facility] Other [facility] general Narrative - Reported* Type Description Date Medical History colonoscopy 2005 Medical History 2005 EKG done Medical History 2009 pelvic exam don e - follows with her [facility] Medical History 2008 mammogram done - follows wi th her [facility] Medical History 2004 CT scan Medical History [...] Medical History 11/09/18 Cystoscopy w/ Dr. Gael lim Medical History 10/[address] Mayorga Medical History 05/20/22 Mammogram Medical History NON SMOKER Medical History Colonosco py, Diagnosed with rectal cancer Medical History Stress Test, Negative Surgical History gallbladder Surgical History ankle and foot Surgical History screening colonocopy -Dr. La Nena alarcon 06/22/15 Hospitalization History see above Hospitalization History Chest Pain [facility] 04/05/23- 04/06/23 [facility] Other History of Present illness Narrative* Patient [...] follow in the future on as-needed basis -[facility] DO Work Phone: Hospital Discharge instructions Additional Instructions Resume your Keflex and Bactrim antibiotic upon completion of outpatient IV therapy. You have been scheduled for for vancomycin antibiotic infusions.[facility] Work Phone: Reason for referral (narrative)* Outpatient Procedure (Routine) - Pending Review Specialty Diagnoses / Procedures Referred By Contac t Referred To Contact [facility] Diagnoses Dyspepsia Procedures EGD DIAGNOSTIC ESOPHAGOGASTRODUODENOSC OPY TRANSORAL DIAGNOSTIC Tapan Corona MD [address] [place] [address] [address] Referral ID Status Reason Start Date Expiration Date Visits Requested Visits Authorized [id number] Pending Review Auto-Generat ed Referral 04/06/2023 04/05/2024 1 1 * Consult, Test, Treat (Routine) - Authorized Specialty Diagnoses / Procedures Referred By Contac t Referred To Contact Gastroenterology Diagnoses Rectal cancer (HCC) Procedures CONSULT TO GASTROENTEROLOGY OFFICE/OUTPATIENT [facility] 60-74 MINUTES Naheed Elias PA-C [address] [place] [address] Referral ID Status Reason Start Date Expiration Date Visits Requested Visits Authorized [id number] Authorized PCP Requested Referral 04/05/2023 04/04/2024 1 1 [facility] for referral (narrative)* Outpatient Procedure (Routine) - Closed Specialty Diagnoses / Procedures Referred By Contac t Referred To Contact [facility] Diagnoses Rectal mass Procedures SIGMOIDOSCOPY SIGMOIDOSCOPY FLX DX W/COLLJ [place] [address] [place] [address] [place] [id number] Referral ID Status Reason Start Date Expiration Date V isits Requested Visits Authorized [id number] Closed Auto-Generate d Referral 03/14/2023 03/14/2024 1 1 [facility] for referral (narrative)* Outpatient Procedure (Routine) - Closed Specialty Diagnoses / Procedures Referred By Contac t Referred To Contact [facility] Diagnoses Rectal cancer (HCC) Procedures SIGMOIDOSCOPY SIGMOIDOSCOPY FLX DX W/COLLJ SPEC BR/WA IF PFRMD [facility] [address] [place] [address] [facility] [address] [address] Referral ID Status Reason Start Date Expiration Date V isits Requested Visits Authorized [id number] Closed Auto-Generate d Referral 05/23/2023 05/23/2024 1 1 [facility] for referral (narrative)* Consultation (Routine) - Authorized Specialty Diagnoses / Procedures Referred By Contac t Referred To Contact Cardiology Diagnoses Other chest pain Essential hypertension Procedures Follow Up In Cardiology Marcos Rios MD [address] [facility] 2, [address] [address] Marcos Rios MD [address] [facility] 2, [address] [address] Referral ID Status Reason Start Date Expiration Date V isits Requested Visits Authorized [id number] Authorized 07/25/2023 07/24/2024 1 1 [facility] Work Phone: [facility] for visit Narrative* Outpatient Procedure (Routine) - Closed Specialty Diagnoses / Procedures Referred By Contac t Referred To Contact [facility] Diagnoses Rectal mass Procedures SIGMOIDOSCOPY SIGMOIDOSCOPY FLX DX W/COLLJ SPEC BR/[place] [address] [place] [address] [facility] [address] [address] Referral ID Status Reason Start Date Expiration Date V isits Requested Visits Authorized [id number] Closed Auto-Generate d Referral 03/14/2023 03/14/2024 1 [facility] Procedure (Routine) - Closed Specialty Diagnoses / Procedures Referred By Shelly t Referred To Contact [facility] Diagnoses Rectal cancer (HCC) Procedures SIGMOIDOSCOPY SIGMOIDOSCOPY FLX DX W/COLLJ SPEC BR/WA IF PFRMD [facility] [address] [place] [address] [facility] [place] [address] [place] [address] Referral ID Status Reason Start Date Expiration Date V isits Requested Visits Authorized [id number] Closed Auto-Generate d Referral 05/23/2023 05/23/2024 1 1 [facility] Summary Purpose Family History No Family History Records Found Relationship Condition Age at Onset Recorded Date/T [...] Unknown grandparent Unknown Not Specified Hypertension Unknown Relationship Condition Age at Onset Recorded Date/T haydee father Coronary artery disease Unknown Arthritis Unknown Hypertension Unknown mother Malignant neoplasm of lung Unknown father Hypertension Unknown Unknown grandparent Heart disease Unknown Cardiac disease Unknown Diabetes mellitus Unknown grandparent Unknown mother Hypertension Unknown Relationship Condition Age at Onset Recorded Date/T haydee father Coronary artery disease Unknown Arthritis Unknown Hypertension Unknown mother Arthritis Unknown Malignant neoplasm of lung Unknown father Unknown grandparent Heart disease Unknown Unknown grandparent Diabetes mellitus Unknown Heart disease Unknown grandparent Unknown mother Unknown Advance Directives No Advanced Directives Records Found Advance Directive Response Recorded Date/ Time Advance Directives No August 12:21pm Advance Directive Response Recorded Date/ Time Advance Directives No August 11:21am Advance Directive Response Recorded Date/ Time Advance Directives No August 03, 2023 6:15pm Advance Directive Response Recorded Date/ Time Advance Directives No August 03, 2023 5:15pm Chief Complaint and Reason for Visit Chief [...] bowel obstruction Partial small bowel obstruction Vomiting Chief Complaint Admit Date Amb Documentation April 30, 2024 1 :32pm Rt middle finger May 22, 2024 11:48am Chief Complaint Admit Date Amb Documentation April 30, 2024 1 :32pm Rt middle finger May 22, 2024 11:48am call back May 23, 2024 8:15am Chief Complaint Admit Date Amb Documentation April 30, 2024 1 :32pm Rt middle finger May 22, 2024 11:48am Rt middle finger May 22, 2024 6:12pm call back May 23, 2024 8:15am L03.011 - Cellulitis of right finger May 11:11am ER [facility] RT MIDDLE FINGER PAIN WX Novembe r 2023 11:20am Reason for Visit Admit Date Cellulitis of right middle finger Novemb er 2023 11:20am Chief Complaint Admit Date Amb Documentation April 30, 2024 1 :32pm Rt middle finger May 22, 2024 11:48am Rt middle finger May 22, 2024 6:12pm call back May 23, 2024 8:15am L03.011 - Cellulitis of right finger May 11:11am ER [facility] RT MIDDLE FINGER PAIN WX Novembe r 2023 11:20am I&D May 31, 2024 11:01am I&D May 31, 2024 2:30pm E78.5 June 04, 2024 9:14am 1 WK POST OP June 11, 2024 1 0:34am 6 month f/u June 11, 2024 1 2:35pm 2 WEEKS June 25, 2024 8:10am 2-3 WEEKS July 17, 2024 8: 19am Reason for Visit Admit Date Infected finger May 30, 2024 11:20am Cellulitis of right middle finger Novemb er 2023 11:20am Infected finger June 11, 2024 1 0:34am Cellulitis of right middle finger Decemb er 2023 10:34am Other specified postprocedural states De cem2023 10:34am Anxiety and depression June 11 12:35pm Colorectal cancer June 11, 2024 1 2:35pm Hyperlipidemia June 11, 2024 1 2:35pm Hypertension June 11, 2024 1 2:35pm Infected finger June 11, 2024 1 2:35pm Infected finger June 25, 2024 8:10am Cellulitis of right middle finger Decemb er 2023 8:10am Other specified postprocedural states De cember 2023 8:10am Infected finger July 17, 2024 8: 19am Other specified postprocedural states nuary 2024 8:19am Reason for Referral Specialty Diagnoses / Procedures Referred By Contac t Referred To Contact [facility] Diagnoses Pain in right hip Procedures CONSULT TO PHYSICAL THERAPY PHYSICAL THERAPY EVALUATION HIGH COMPLEX [address] [place] [address] [place] [address] [facility] [place] [address] [place] [address] Referral ID Status Reason Start Date Expiration Date Visits Requested Visits Authorized [id number] Authorized PCP Requested Referral Auto-Generate d Referral 11/21/2023 11/20/2024 99 99 Specialty Diagnoses / Procedures Referred By Contac t Referred To Contact General Surgery Diagnoses Rectal cancer (HCC) Procedures CONSULT TO GENERAL SURGERY OFFICE/OUTPATIENT [facility] MDM 60-74 MINUTES Tapan Corona MD [address] [place] [address] Referral ID Status Reason Start Date Expiration Date Visits Requested Visits Authorized [id number] Authorized PCP Requested Referral 06/14/2023 06/13/2024 1 1 Specialty Diagnoses / Procedures Referred By Contac t Referred To Contact MR IMAGING Diagnoses Rectal cancer (HCC) Procedures MRI RECTUM WO/W IVCON MRI PELVIS W/O & W/CONTRAST MATERIAL Tapan Corona MD [address] [place] [address] [place] [address] Referral ID Status Reason Start Date Expiration Date Visits Requested Visits Authorized [id number] Authorized Auto-Generat ed Referral 06/09/2023 05/27/2024 1 1 Specialty Diagnoses / Procedures Referred By Contac t Referred To Contact Diagnoses Rectal adenocarcinoma (HCC) Procedures CT SIM PLANNING RADIATION ONCOLOGY THER RAD SIMULAJ-AIDED FIELD SETTING COMPLEX Del Hudson MD [address] [place] [address] [place] [address] Referral ID Status Reason Start Date Expiration Date Visits Requested Visits Authorized [id number] Pending Review PCP Requested Referral 03/23/2023 06/20/2023 1 1 Specialty Diagnoses / Procedures Referred By Contac t Referred To Contact [facility] IMAG[facility] Diagnoses Rectal adenocarcinoma (HCC) Procedures MRI RECTUM WO/W IVCON MRI PELVIS W/O & W/CONTRAST MATERIAL Del Hudson MD [address] [place] [address] [place] [address] Mr Imaging [facility] Referral ID Status Reason Start Date Expiration Date Visits Requested Visits Authorized [id number] Authorized Auto-Generat ed Referral 03/07/2023 07/09/2023 1 1 Reason diagnostic colonosco py Diagnosis 1 Change in bowel habi ts (R19.4) Diagnosis 2 Flatulence (R14.3) Diagnosis 3 Bloody stools (K92.1 ) Referral Organization [facility] [place] Referring Provider First Name Charles Referring Provider Last Name Kuns Referring Provider Specialty Family Prac jennifer Referred Provider Specialty Gastroentero logy Referral Priority Routine Reason *FU 10/11 needs ca rdiac clearance (right knee replacement in November) ; no Diagnosis 1 Atrial fibrillation (I48.91) Diagnosis 2 Primary osteoarthrit is of right knee (M17.11) Referral Organization [facility] [place] Referring Provider First Name Charles Referring Provider Last Name Dixie Referring Provider Specialty Family Prac jennifer Referred Organization [facility] Referred Address [address] [facility] [address] ,[place], [place],[address] Referred Provider Specialty Cardiology Referral Priority Routine General Notes Dominga Vázquez 023 08:56:54 AM >Received today. NO office request us to fax the referral to them and they will review and call patient to schedule their appointment. Referral was fax Additional Source Comments INFORMATION SOURCE (unrecogn ized section and content) DATE CREATED AUTHOR 01/02/2018 [facility] DATE CREATED AUTHOR AUTHOR'S ORGANIZ ATION 10/27/2022 [employer] DATE CREATED AUTHOR AUTHOR'S ORGANIZ ATION 11/11/2022 [facility] pital DATE CREATED AUTHOR AUTHOR'S ORGANIZ ATION 04/25/2023 [facility] DATE CREATED AUTHOR AUTHOR'S ORGANIZ ATION 07/27/2023 [facility] tals Ambulatory DATE CREATED AUTHOR AUTHOR'S ORGANIZ ATION 11/22/2023 [facility] DATE CREATED AUTHOR AUTHOR'S ORGANIZ ATION 02/21/2024 [facility] EPIC DATE CREATED AUTHOR AUTHOR'S ORGANIZ ATION 05/10/2024 [facility] DATE CREATED AUTHOR AUTHOR'S ORGANIZ ATION 05/10/2024 [facility] DATE CREATED AUTHOR AUTHOR'S ORGANIZ ATION 07/23/2024 [facility] DATE CREATED AUTHOR AUTHOR'S ORGANIZ ATION 07/27/2024 [facility] REASON FOR VISIT (unrecogniz ed section and [...] IVCON MRI PELVIS W/O & W/CONTRAST MATERIAL Tapan Corona MD [address] [place] [address] [place] [address] Referral ID Status Reason Start Date Expiration Date V isits Requested Visits Authorized [id number] Closed Auto-Generate d Referral 06/09/2023 05/27/2024 1 1 Reason Comments Rectal Cancer Follow up Reason Comments Care Coordination Medication update Reason Comments Follow-up 2 week [facility] [place] Reason Comments Care Coordination Hospital d/c follow up call 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 Comments 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 Reason Comments Care [...] Refill Request 02/06/2024 Reason Comments [employer] results Specialty Diagnoses / Procedures Referred By Contac t Referred To Contact MR IMAGING Diagnoses Rectal adenocarcinoma (HCC) Procedures MRI RECTUM WO/W IVCON MRI PELVIS W/O & W/CONTRAST MATERIAL Del Hudson MD [address] [place] [id number] [place] [address] Referral ID Status Reason Start Date Expiration Date V isits Requested Visits Authorized [id number] Closed Auto-Generate d Referral 03/07/2023 07/09/2023 1 1 Reason Comments Rectal Cancer Follow up Reason Comments Post Radiation Treatment Follow Up Reason Comments Established Patient Care Teams (unrecognized sec tion and content) Team Status: Active Member Role Status Dates Charles Bazzi , DO Primary Care Provider Active Team Status: Active Member Role Status Dates Charles Bazzi , DO Primary Care Provide r, Attending Provider Active Start: August 26, 2023 Team Status: Active Member Role Status Dates Charles Bazzi , DO Primary Care Provide r, Attending Provider Active Start: August 27, 2023 Team Status: Active Member Role Status Dates Charles Bazzi , DO Primary Care Provide r, Attending Provider Active Start: August 28, 2023 Team Status: Active Member Role Status Dates Charles Bazzi , DO Primary Care Provide r, Attending Provider Active Start: August 29, 2023 Team Status: Active Member Role Status Dates Charles Bazzi , DO Primary Care Provide r, Attending Provider Active Start: August 30, 2023 Team Status: Active Member Role Status Dates Charles Bazzi , DO Primary Care Provide r, Attending Provider Active Start: August 31, 2023 Team Status: Active Member Role Status Dates Charles Bazzi DO Primary Care Provide r, Attending Provider Active Start: September 01, 2023 Team Status: Active Member Role Status Dates Charles Bazzi DO Primary Care Provide r, Attending Provider Active Start: September 02, 2023 Team Status: Active Member Role Status Dates Charles Bazzi , DO Primary Care Provide r, Attending Provider Active Start: September 03, 2023 Team Status: Active Member Role Status Seda Bazzi , DO Primary Care Provide r, Attending Provider Active Start: September 04, 2023 Team Status: Active Member Role Status Seda Bazzi DO Primary Care Provider Active Sta rt: September 30, 2023 Patrice Springer DO Emergency Provider Active Start: September 30, 2023 Miguel Ángel Delgadillo MD Admit Provider, Atte nding Provider Active Start: September 30, 2023 Team Status: Inactive Member Role Status Dates Charles Bazzi DO Primary Care Provider, Attending Provi johnson Active Team Status: Inactive Member Role Status Dates Charles Bazzi DO Primary Care Provider Active Caroline Rangel II, MD Attending Provider Active 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 Specialty Start Date End Date Charles Bazzi [address] [place] [phone] PCP - General Family Medicine 03/16/23 Colleen Solorio RN [address] [facility] [place] [address] Specialty User Experience Designer Hematology/Oncology 03/22/23 Tapan Corona MD [address] [facility] [place] [address] Physician Hematology/Oncology 03/22/23 Naheed Elias PA-C [address] [facility] [place] [address] Physician Clinical Training Coordinator Hematology/Oncology 03/22/23 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 Specialty Start Date End Date Charles Bazzi [address] [place], [place] [phone] PCP - General Family Medicine 03/16/23 Colleen Solorio RN [address] [facility] [place] [address] Specialty User Experience Designer Hematology/Oncology 03/22/23 Tapan Corona MD [address] [facility] [place] [phone] Physician Hematology/Oncology 03/22/23 Naheed Elias PA-C [address] [facility] [address] [place], [facility] Physician Clinical Training Coordinator Hematology/Oncology 03/22/23 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 Specialty Start Date End Date Charles Bazzi [address] [place] [phone] PCP - General Family Medicine 03/16/23 Colleen Solorio RN [address] [facility] [place] [address] Specialty User Experience Designer Hematology/Oncology 03/22/23 Tapan Corona MD [address] [facility] [place] [address] Physician Hematology/Oncology 03/22/23 Naheed Elias PA-C [address] [facility] [place] [address] Physician Clinical Training Coordinator Hematology/Oncology 03/22/23 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 Specialty Start Date End Date Charles Bazzi [address] [place] [phone] PCP - General Family Medicine 03/16/23 Colleen Solorio RN [address] [facility] [place] [address] Specialty User Experience Designer Hematology/Oncology 03/22/23 Tapan Corona MD [address] [facility] [place] [address] Physician Hematology/Oncology 03/22/23 Naheed Elias PA-C [address] [facility] [place] [address] Physician Clinical Training Coordinator Hematology/Oncology 03/22/23 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 Specialty Start Date End Date Charles Bazzi [address] [place] [phone] PCP - General Family Medicine 03/16/23 Colleen Solorio, KAYA [address] [facility] [place] [address] Specialty User Experience Designer Hematology/Oncology 03/22/23 Tapan Corona MD [address] [facility] [place] [address] Physician Hematology/Oncology 03/22/23 Naheed Elias PA-C [address] [facility] [place] [address] Physician Clinical Training Coordinator Hematology/Oncology 03/22/23 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 Specialty Start Date End Date Charles Bazzi [address] [place], [place] [phone] PCP - General Family Medicine 03/16/23 Colleen Solorio RN [address] [facility] [place] [address] Specialty User Experience Designer Hematology/Oncology 03/22/23 Tapan Corona MD [address] [facility] [place] [address] Physician Hematology/Oncology 03/22/23 Naheed Elias PA-C [facility] [address] [facility] [place] [address] Physician Clinical Training Coordinator Hematology/Oncology 03/22/23 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 Specialty Start Date End Date Charles Bazzi [address] [place], [place] [phone] PCP - General Family Medicine 03/16/23 Colleen Solorio RN [address] [facility] [place] [address] Specialty User Experience Designer Hematology/Oncology 03/22/23 Tapan Corona MD [address] [facility] [place] [address] Physician Hematology/Oncology 03/22/23 Naheed Elias PA-C [address] [facility] [place] [address] Physician Clinical Training Coordinator Hematology/Oncology 03/22/23 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 Specialty Start Date End Date DixieCharles Brendon [address] [place] [phone] PCP - General Family Medicine 03/16/23 Colleen Solorio RN [address] [place] [address] [place] [address] Specialty User Experience Designer Hematology/Oncology 03/22/23 Tapan Corona MD [address] [place] [address] [place] [address] Physician Hematology/Oncology 03/22/23 Naheed Elias PA-C [address] [place] [address] [place] [address] Physician Clinical Training Coordinator Hematology/Oncology 03/22/23 Team Status: Inactive Member Role Status Seda Bazzi DO Primary Care Provider Active Tomi Greene MD Attending Provider Active Team Status: Active Member Role Status Seda Bazzi DO Primary Care Provider Active Gregory Rangel PA-C Emergency Provider Active Lynnette Hare , DO Admit Provider, Attending Provider Active Team Status: Inactive Member Role Status Seda Bazzi DO Primary Care Provider Active Gregory Rangel PA-C Emergency Provider Active Lynnette Hare , DO Admit Provider Active Aggie Harmon RN Other Provider Active Akila Stokes , DO Other Provider Active Troy Combs MD Other Provider Active David Espinosa MD Other Provider Active Marcos Rios MD Other Provider Active Blas Villagomez MD Other Provider Active Pushpa Saucedo APRN Other Provider Active Amanda Mora MD Other Provider Active Jomar Campos MD Other Provider Active Kandace Shah MD Other Provider Active Arlette Orozco , [facility]- Other Provider Active Wendy Ocasio MD Other Provider Active Agustin Negron MD Attending Provider Active Tapan Corona MD Other Provider Active 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 Specialty Start Date End Date Charles Bazzi [address] [phone] PCP - General Family Medicine 03/16/23 Colleen Solorio RN [address] [facility] [place] [address] Specialty User Experience Designer Hematology/Oncology 03/22/23 Tapan Corona MD [address] [facility] [place] [address] Physician Hematology/Oncology 03/22/23 Naheed Elias PADesireeC [facility] [place] [address] Physician Clinical Training Coordinator Hematology/Oncology 03/22/23 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 Specialty Start Date End Date Charles Bazzi [address] [phone] PCP - General Family Medicine 03/16/23 Colleen Solorio RN [address] [facility] [place] [address] Specialty User Experience Designer Hematology/Oncology 03/22/23 Tapan Corona MD [address] [facility] [place] [address] Physician Hematology/Oncology 03/22/23 Naheed Elias PAGabriel [address] [facility] [place] [address] Physician Clinical Training Coordinator Hematology/Oncology 03/22/23 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 Specialty Start Date End Date Charles Bazzi [address] [place], [place] [phone] PCP - General Family Medicine 03/16/23 Colleen Solorio RN [address] [facility] [place] [address] Specialty User Experience Designer Hematology/Oncology 03/22/23 Tapan Corona MD [address] [place] [address] [place] [address] Physician Hematology/Oncology 03/22/23 Naheed Elias PA-C [address] [place] [address] [place] [address] Physician Clinical Training Coordinator Hematology/Oncology 03/22/23 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 Specialty Start Date End Date Charles Bazzi [address] [place], [place] [phone] PCP - General Family Medicine 03/16/23 Colleen Solorio RN [address] [facility] [place] [address] Specialty User Experience Designer Hematology/Oncology 03/22/23 Tapan Corona MD [address] [place] [address] [place] [address] Physician Hematology/Oncology 03/22/23 Naheed Elias PA-C [address] [place] [address] [place] [address] Physician Clinical Training Coordinator Hematology/Oncology 03/22/23 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 Specialty Start Date End Date Charles Bazzi [address] [place], [place] [phone] PCP - General Family Medicine 03/16/23 Colleen Solorio RN [address] [facility] [place] [address] Specialty User Experience Designer Hematology/Oncology 03/22/23 Tapan Corona MD [address] [place] [address] [place] [address] Physician Hematology/Oncology 03/22/23 Naheed Elias PA-C [address] [place] [address] [place] [address] Physician Clinical Training Coordinator Hematology/Oncology 03/22/23 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 Specialty Start Date End Date Charles Bazzi [address] [place], [place] [phone] PCP - General Family Medicine 03/16/23 Colleen Solorio RN 417 [facility] [address] [place] [phone] Specialty User Experience Designer Hematology/Oncology 03/22/23 Tapan Corona MD [address] [place] [address] [place] [address] Physician Hematology/Oncology 03/22/23 Naheed Elias PA-C [address] [place] [address] [place] [address] Physician Clinical Training Coordinator Hematology/Oncology 03/22/23 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 Specialty Start Date End Date Charles Bazzi [address] [place] [phone] PCP - General Family Medicine 03/16/23 Colleen Solorio RN [address] [facility] [place] [address] Specialty User Experience Designer Hematology/Oncology 03/22/23 Tapan Corona MD [address] [facility] [place] [address] Physician Hematology/Oncology 03/22/23 Naheed Elias PA-C [address] [facility] [place] [address] Physician Clinical Training Coordinator Hematology/Oncology 03/22/23 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 Specialty Start Date End Date Charles Bazzi [address] [place], [place] [phone] PCP - General Family Medicine 03/16/23 Colleen Solorio RN [address] [facility] [place] [address] Specialty User Experience Designer Hematology/Oncology 03/22/23 Tapan Corona MD [address] [place], [place] [address]ry [facility] [place] [address] Physician Hematology/Oncology 03/22/23 Naheed Elias PA-C [address] [facility] [place] [address] Physician Clinical Training Coordinator Hematology/Oncology 03/22/23 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 Specialty Start Date End Date Charles Bazzi [address] [place] [phone] PCP - General Family Medicine 03/16/23 Colleen Solorio, RN [address] [facility] [place] [address] Specialty User Experience Designer Hematology/Oncology 03/22/23 Tapan Corona MD [address] [facility] [place] [address] Physician Hematology/Oncology 03/22/23 Naheed Elias PA-C [address] [facility] [place] [address] Physician Clinical Training Coordinator Hematology/Oncology 03/22/23 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 Specialty Start Date End Date Charles Bazzi [address] [phone] PCP - General Family Medicine 03/16/23 Colleen Solorio RN [address] [facility] [place] [address] Specialty User Experience Designer Hematology/Oncology 03/22/23 Tapan Corona MD [address] [place] [address] Physician Hematology/Oncology 03/22/23 Naheed Elias PA-C [address] [facility] [place] [address] Physician Clinical Training Coordinator Hematology/Oncology 03/22/23 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 Specialty Start Date End Date Charles Bazzi [address] [place], [place] [phone] PCP - General Family Medicine 03/16/23 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 Specialty Start Date End Date Charles Bazzi [address] [phone] PCP - General Family Medicine 03/16/23 Colleen Solorio, RN [address] [facility] [place] [address] Specialty User Experience Designer Hematology/Oncology 03/22/23 Tapan Corona MD [address] [facility] [place] [address] Physician Hematology/Oncology 03/22/23 Naheed Elias PA-C [address] [facility] [place] [address] Physician Clinical Training Coordinator Hematology/Oncology 03/22/23 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 Specialty Start Date End Date Charles Bazzi [address] [place], [place] [phone] PCP - General Family Medicine 03/16/23 Colleen Solorio RN [address] [facility] [place] [address] Specialty User Experience Designer Hematology/Oncology 03/22/23 Tapan Corona MD [address] [facility] [place] [address] Physician Hematology/Oncology 03/22/23 Naheed Elias PA-C [facility] [address] [facility] [place] [address] Physician Clinical Training Coordinator Hematology/Oncology 03/22/23 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 Specialty Start Date End Date Charles Bazzi [address] [place], [place] [phone] PCP - General Family Medicine 03/16/23 Colleen Solorio RN [address] [facility] [place] [address] Specialty User Experience Designer Hematology/Oncology 03/22/23 Tapan Corona MD [address] [facility] [place] [address] Physician Hematology/Oncology 03/22/23 Naheed Elias PA-C [address] [place] [address] [place] [address] Physician Clinical Training Coordinator Hematology/Oncology 03/22/23 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 Specialty Start Date End Date Charles Bazzi [address] [place], [place] [phone] PCP - General Family Medicine 03/16/23 Colleen Solorio RN [address] [facility] [address] Specialty User Experience Designer Hematology/Oncology 03/22/23 Tapan Corona MD [address] [place] [address] [place] [address] Physician Hematology/Oncology 03/22/23 Naheed Elias PADesireeC [address] [place] [address] [address] [place] [phone] Physician Clinical Training Coordinator Hematology/Oncology 03/22/23 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 Specialty Start Date End Date Charles Bazzi [address] [place], [place] [phone] PCP - General Family Medicine 03/16/23 Colleen Solorio RN [address] [facility] [address] Specialty User Experience Designer Hematology/Oncology 03/22/23 Tapan Corona MD [address] [place] [address] [place] [address] Physician Hematology/Oncology 03/22/23 Naheed Elias PA-C [address] [place] [address] [place] [address] Physician Clinical Training Coordinator Hematology/Oncology 03/22/23 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 Specialty Start Date End Date Charles Bazzi [address] [place] [phone] PCP - General Family Medicine 03/16/23 Colleen Solorio RN [address] [facility] [place] [address] Specialty User Experience Designer Hematology/Oncology 03/22/23 Tapan Corona MD [address] [place] [address] Physician Hematology/Oncology 03/22/23 Naheed Elias, PADesireeC [address] [place] [address] [place] [address] Physician Clinical Training Coordinator Hematology/Oncology 03/22/23 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 Specialty Start Date End Date Charles Bazzi [address] [place], [place] [phone] PCP - General Family Medicine 03/16/23 Colleen Solorio RN [address] [facility] [place] [address] Specialty User Experience Designer Hematology/Oncology 03/22/23 Tapan Corona MD [address] [place], [place] [phone] Physician Hematology/Oncology 03/22/23 Naheed Elias PADesireeC [address] [place] [address] [place] [address] Physician Clinical Training Coordinator Hematology/Oncology 03/22/23 Team Status: Inactive Member Role Status Dates Charles Bazzi DO Primary Care Provider Active Cristhian Vargas MD Attending Provider Active 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 Specialty Start Date End Date Charles Bazzi DO PCP - General 10/05/22 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 Specialty Start Date End Date Charles Bazzi [address] [place] [phone] PCP - General Family Medicine 03/16/23 Colleen Solorio RN [address] [facility] [address] Specialty User Experience Designer Hematology/Oncology 03/22/23 Tapan Corona MD [address] [facility] [place] [address] Physician Hematology/Oncology 03/22/23 Naheed Elias, PA-C [address] [facility] [address] Physician Clinical Training Coordinator Hematology/Oncology 03/22/23 Maryuri Rodriguez LSW Qa Analyst 07/21/23 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 Specialty Start Date End Date Charles Bazzi [address] [place] [phone] PCP - General Family Medicine 03/16/23 Colleen Solorio RN [address] [facility] [place] [address] Specialty User Experience Designer Hematology/Oncology 03/22/23 Tapan Corona MD [address] [facility] [place] [address] Physician Hematology/Oncology 03/22/23 Naheed Elias, PADesireeC [address] [facility] [place] [address] Physician Clinical Training Coordinator Hematology/Oncology 03/22/23 Maryuri Rodriguez LSW Qa Analyst 07/21/23 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 Specialty Start Date End Date Charles Bazzi [address] [place] [phone] PCP - General Family Medicine 03/16/23 Colleen Solorio RN [address] [place] [address] Specialty User Experience Designer Hematology/Oncology 03/22/23 Tapan Corona MD [address] [facility] [place] [address] Physician Hematology/Oncology 03/22/23 Naheed Elias PA-C [address] [facility] [place] [address] Physician Clinical Training Coordinator Hematology/Oncology 03/22/23 Maryuri Rodriguez LSW Qa Analyst 07/21/23 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 Specialty Start Date End Date Charles Bazzi [address] [place] [phone] PCP - General Family Medicine 03/16/23 Colleen Solorio RN [address] [facility] [place] [address] Specialty User Experience Designer Hematology/Oncology 03/22/23 Tapan Corona MD [address] [facility] [place] [address] Physician Hematology/Oncology 03/22/23 Naheed Elias PA-C [address] [facility] [place] [address] Physician Clinical Training Coordinator Hematology/Oncology 03/22/23 Maryuri Rodriguez LSW Qa Analyst 07/21/23 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 Specialty Start Date End Date Charles Bazzi [address] [place] [phone] PCP - General Family Medicine 03/16/23 Colleen Solorio RN [address] [facility] [place] [address] Specialty User Experience Designer Hematology/Oncology 03/22/23 Tapan Corona MD [address] [facility] [place] [address] Physician Hematology/Oncology 03/22/23 Naheed Elias PA-C [address] [facility] [address] Physician Clinical Training Coordinator Hematology/Oncology 03/22/23 Maryuri Rodriguez, GOVERNMENT TEACHER Qa Analyst 07/21/23 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 Specialty Start Date End Date Charles Bazzi [address] [place] [phone] PCP - General Family Medicine 03/16/23 Colleen Solorio RN [address] [facility] [place] [address] Specialty User Experience Designer Hematology/Oncology 03/22/23 Tapan Corona MD [address] [facility] [place] [address] Physician Hematology/Oncology 03/22/23 Naheed Elias PA-C [address] [facility] [place] [address] Physician Clinical Training Coordinator Hematology/Oncology 03/22/23 Maryuri Rodriguez, GOVERNMENT TEACHER Qa Analyst 07/21/23 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 Specialty Start Date End Date Charles Bazzi [address] [place] [phone] PCP - General Family Medicine 03/16/23 Colleen Solorio, RN [address] [place] [address] [place] [address] Specialty User Experience Designer Hematology/Oncology 03/22/23 Tapan Corona MD [address] [place] [address] [place] [address] Physician Hematology/Oncology 03/22/23 Naheed Elias, PADesireeC [address] [place] [address] [place] [address] Physician Clinical Training Coordinator Hematology/Oncology 03/22/23 Maryuri Rodriguez LSW Qa Analyst 07/21/23 Team Status: Inactive Member Role Status Dates Charles Bazzi DO Primary Care Provider Active Sta rt: September 30, 2023 End: October 01, 2023 Patrice Springer DO Emergency Provider Active Start: September 30, 2023 End: October 01, 2023 Miguel Ángel Delgadillo MD Admit Provider Active Start: September 30, 2023 End: October 01, 2023 Tim Garduno MD Attending Provider Active Start: September 30, 2023 End: October 01, 2023 Cristhian Vargas MD Other Provider Active Start: September 30, 2023 End: October 01, 2023 Team Status: Active Member Role Status Dates Charles Bazzi DO Primary Care Provider Active Sta rt: September 30, 2023 Patrice Springer DO Emergency Provider Active Start: September 30, 2023 Miguel Ángel Delgadillo MD Admit Provider, Atte nding Provider, Other Provider Active Start: September 30, 2023 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 Specialty Start Date End Date Charles Bazzi [address] [place] [phone] PCP - General Family Medicine 03/16/23 Colleen Solorio RN [address] [facility] [place] [address] Specialty User Experience Designer Hematology/Oncology 03/22/23 Tapan Corona MD [address] [place] [address] [place] [address] Physician Hematology/Oncology 03/22/23 Naheed Elias PA-C [address] [place] [address] [place] [address] Physician Clinical Training Coordinator Hematology/Oncology 03/22/23 Maryuri Rodriguez LSW Qa Analyst 07/21/23 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 Specialty Start Date End Date Charles Bazzi [address] [place] [phone] PCP - General Family Medicine 03/16/23 Colleen Solorio RN [address] [facility] [address] Specialty User Experience Designer Hematology/Oncology 03/22/23 Tapan Corona MD [address] [place] [address] [place] [address] Physician Hematology/Oncology 03/22/23 Naheed Elias PA-C [address] [place] [address] [place] [address] Physician Clinical Training Coordinator Hematology/Oncology 03/22/23 Maryuri Rodriguez LSW Qa Analyst 07/21/23 Team Status: Active Member Role Status Dates Charles Bazzi DO Primary Care Provider Active Sta rt: September 30, 2023 End: October 01, 2023 Patrice Springer DO Emergency Provider Active Start: September 30, [...] Ion Eckert DO Other Provider Active Start: Ap 2023 End: October 28, 2023 Team Status: Active Member Role Status Dates Charles Bazzi DO Primary Care Provider Active Sta rt: October 26, 2023 Mary Al MD Emergency Provider Active Start: October 26, 2023 Patrice Hooks MD Admit Provider, Other Provider Act libby Start: October 26, 2023 Ethel Saucedo APRN Attending Provider Active S tart: October 26, 2023 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 Specialty Start Date End Date Charles Bazzi [address] [place] [phone] PCP - General Family Medicine 03/16/23 Colleen Solorio RN [address] [place] [address] [place] [address] Specialty User Experience Designer Hematology/Oncology 03/22/23 Tapan Corona MD [address] [place] [address] [place] [address] Physician Hematology/Oncology 03/22/23 Naheed Elias PA-C [address] [place] [address] [place] [address] Physician Clinical Training Coordinator Hematology/Oncology 03/22/23 Maryuri Rodriguez LSW Qa Analyst 07/21/23 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 Specialty Start Date End Date Charles Bazzi [address] [place] [phone] PCP - General Family Medicine 03/16/23 Colleen Solorio RN [address] [facility] [place] [address] Specialty User Experience Designer Hematology/Oncology 03/22/23 Tapan Corona MD [address] [place] [address] [place] [address] Physician Hematology/Oncology 03/22/23 Naheed Elias PA-C [address] [place] [address] [place] [address] Physician Clinical Training Coordinator Hematology/Oncology 03/22/23 Maryuri Rodriguez LSW Qa Analyst 07/21/23 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 Specialty Start Date End Date Charles Bazzi [address] [place] [address] [phone] PCP - General Family Medicine 03/16/23 Colleen Solorio, RN [address] [facility] [place] [address] Specialty User Experience Designer Hematology/Oncology 03/22/23 Tapan Corona MD [address] [place] [address] [place] [address] Physician Hematology/Oncology 03/22/23 Naheed Elias PA-C [address] [place] [address] [place] [address] Physician Clinical Training Coordinator Hematology/Oncology 03/22/23 Maryuri Rodriguez, GOVERNMENT TEACHER Qa Analyst 07/21/23 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 Specialty Start Date End Date Charles Bazzi [address] [place] [address] [phone] PCP - General Family Medicine 03/16/23 Colleen Solorio RN [address] [facility] [place] [address] Specialty User Experience Designer Hematology/Oncology 03/22/23 Tapan Corona MD [address] [place] [address] [place] [address] Physician Hematology/Oncology 03/22/23 Naheed Elias PA-C [address] [place] [address] [place] [address] Physician Clinical Training Coordinator Hematology/Oncology 03/22/23 Maryuri Rodriguez, GOVERNMENT TEACHER Qa Analyst 07/21/23 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 Specialty Start Date End Date Charles Bazzi [address] [place] [address] [phone] PCP - General Family Medicine 03/16/23 Colleen Solorio RN [address] [facility] [place] [address] Specialty User Experience Designer Hematology/Oncology 03/22/23 Tapan Corona MD [address] [place] [address] [place] [address] Physician Hematology/Oncology 03/22/23 Naheed Elias PA-C [address] [facility] [address] Physician Clinical Training Coordinator Hematology/Oncology 03/22/23 Maryuri Rodriguez, GOVERNMENT TEACHER Qa Analyst 07/21/23 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 Specialty Start Date End Date Charles Bazzi [address] [place], [place] [phone] PCP - General Family Medicine 03/16/23 Colleen Solorio RN [address] [facility] [address] Specialty User Experience Designer Hematology/Oncology 03/22/23 Tapan Corona MD [address] [place] [address] Physician Hematology/Oncology 03/22/23 Naheed Elias PA-C [address] [place] [address] [place] [address] Physician Clinical Training Coordinator Hematology/Oncology 03/22/23 Maryuri Rodriguez, GOVERNMENT TEACHER Qa Analyst 07/21/23 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 Specialty Start Date End Date Charles Bazzi [address] [place] [phone] PCP - General Family Medicine 03/16/23 Tapan Corona MD [address] [place] [address] Physician Hematology/Oncology 03/22/23 Naheed Elias PA-C [address] [facility] [place] [address] Physician Clinical Training Coordinator Hematology/Oncology 03/22/23 Maryuri Rodriguez, MARTIN Qa Analyst 07/21/23 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 Specialty Start Date End Date Charles Bazzi [address] [place], [place] [phone] PCP - General Family Medicine 03/16/23 Colleen Solorio, RN [address] [facility] [address] Specialty User Experience Designer Hematology/Oncology 03/22/23 02/07/24 Tapan Corona MD [address] [facility] [place] [address] Physician Hematology/Oncology 03/22/23 Naheed Elias PA-C [address] [facility] [address] Physician Clinical Training Coordinator Hematology/Oncology 03/22/23 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 Specialty Start Date End Date Charles Bazzi [address] [place], [place] [phone] PCP - General Family Medicine 03/16/23 Tapan Coroan MD [address] [facility] [place] [address] Physician Hematology/Oncology 03/22/23 Naheed Elias PA-C [address] [facility] [place] [address] Physician Clinical Training Coordinator Hematology/Oncology 03/22/23 Maryuri Rodriguez, GOVERNMENT TEACHER Qa Analyst 07/21/23 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 Specialty Start Date End Date Charles Bazzi [address] [place], [place] [phone] PCP - General Family Medicine 03/16/23 Tapan Corona MD [address] [place] [address] [place] [address] Physician Hematology/Oncology 03/22/23 Naheed Elias, PADesireeC [address] [place] [address] Physician Clinical Training Coordinator Hematology/Oncology 03/22/23 Maryuri Rodriguez LSW Qa Analyst 07/21/23 Team Status: Active Member Role Status Seda Bazzi DO Primary Care Provider Active Sta rt: April 30, 2024 THANIA Leyva Attending Provider Active Start: April 30, 2024 Team Status: Active Member Role Status Seda Bazzi DO Primary Care Provider Active Sta rt: May 08, 2024 Tapan Corona MD Attending Provider Active St art: May 08, 2024 Team Status: Inactive Member Role Status Seda Bazzi DO Primary Care Provider Active Sta rt: May 22, 2024 End: May 22, 2024 Chris Henning APRN Emergency Provider Active Start: May 22, 2024 End: May 22, 2024 Team Status: Inactive Member Role Status Seda Bazzi DO Primary Care Provider Active Sta rt: May 23, 2024 End: May 23, 2024 Chris Henning APRN Emergency Provider Active Start: May 23, 2024 End: May 23, 2024 Team Status: Active Member Role Status Seda Bazzi DO Primary Care Provider Active Sta rt: May 22, 2024 Chris Henning APRN Emergency Provider Active Start: May 22, 2024 Jorge A Haji DO Attending Provider Active St art: May 22, 2024 Team Status: Active Member Role Status Seda Bazzi DO Primary Care Provider Active Sta rt: May 30, 2024 Jorge A Haji DO Attending Provider Active St art: May 30, 2024 Team Status: Inactive Member Role Status Seda Bazzi DO Primary Care Provider Active Sta rt: May 30, 2024 End: May 30, 2024 Jorge A Haji DO Attending Provider Active St art: May 30, 2024 End: May 30, 2024 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 Start Date End Date Charles Bazzi DO [address] [place] [phone] PCP - General 12/13/22 Team Status: Inactive Member Role Status Seda Bazzi DO Primary Care Provider Active Sta rt: May 22, 2024 End: May 22, 2024 Chris Henning APRN Emergency Provider Active Start: May 22, 2024 End: May 22, 2024 Jorge A Haji DO Other Provider Active Start: May 22, 2024 End: May 22, 2024 Team Status: Inactive Member Role Status Dates Charles Bazzi DO Primary Care Provider Active Sta rt: May 31, 2024 End: May 31, 2024 Amanda Patterson MD Attending Provider Active Start: May 31, 2024 End: May 31, 2024 Team Status: Active Member Role Status Seda Bazzi DO Primary Care Provider Active Sta rt: May 31, 2024 Amanda Patterson MD Attending Provider , Other Provider Active Start: May 31, 2024 Team Status: Inactive Member Role Status Seda Bazzi DO Primary Care Provide r, Attending Provider Active Start: June 04, 2024 End: June 04, 2024 Team Status: Inactive Member Role Status Seda Bazzi DO Primary Care Provider Active Sta rt: June 11, 2024 End: June 11, 2024 Amanda Patterson MD Attending Provider Active Start: June 11, 2024 End: June 11, 2024 Team Status: Inactive Member Role Status Sdea Bazzi DO Primary Care Provide r, Attending Provider Active Start: June 11, 2024 End: June 11, 2024 Team Status: Inactive Member Role Status Seda Bazzi DO Primary Care Provider Active Sta rt: June 25, 2024 End: June 25, 2024 Amanda Patterson MD Attending Provider Active Start: June 25, 2024 End: June 25, 2024 Team Status: Inactive Member Role Status Seda Bazzi DO Primary Care Provider Active Sta rt: July 17, 2024 End: July 17, 2024 Amanda Patterson MD Attending Provider Active Start: July 17, 2024 End: July 17, 2024 Goals (unrecognized section and content) Goals may be documented in a n alternate section Source Comments (unrecognize d section and content) In the event this informatio n is protected by the Federal Confidentiality of Alcohol and Drug Abuse Patient Records regulations: The Federal rules restrict any use of the information to criminally investigate or prosecute any alcohol or drug abuse patient.[facility] the event this information is protected by the Federal Confidentiality of Alcohol and Drug Abuse Patient Records regulations: The Federal rules restrict any use of the information to criminally investigate or prosecute any alcohol or drug abuse patient.[facility]In the event this information is protected by the Federal Confidentiality of Alcohol and Drug Abuse Patient Records regulations: The Federal rules restrict any use of the information to criminally investigate or prosecute any alcohol or drug abuse patient.[facility]In the event this information is protected by the Federal Confidentiality of Alcohol and Drug Abuse Patient Records regulations: The Federal rules restrict any use of the information to criminally investigate or prosecute any alcohol or drug abuse patient.[facility]In the event this information is protected by the Federal Confidentiality of Alcohol and Drug Abuse Patient Records regulations: The Federal rules restrict any use of the information to criminally investigate or prosecute any alcohol or drug abuse patient.[facility]In the event this information is protected by the Federal Confidentiality of Alcohol and Drug Abuse Patient Records regulations: The Federal rules restrict any use of the information to criminally investigate or prosecute any alcohol or drug abuse patient.[facility]In the event this information is protected by the Federal Confidentiality of Alcohol and Drug Abuse Patient Records regulations: The Federal rules restrict any use of the information to criminally investigate or prosecute any alcohol or drug abuse patient.[facility]In the event this information is protected by the Federal Confidentiality of Alcohol and Drug Abuse Patient Records regulations: The Federal rules restrict any use of the information to criminally investigate or prosecute any alcohol or drug abuse patient.[facility]In the event this information is protected by the Federal Confidentiality of Alcohol and Drug Abuse Patient Records regulations: The Federal rules restrict any use of the information to criminally investigate or prosecute any alcohol or drug abuse patient.[facility]In the event this information is protected by the Federal Confidentiality of Alcohol and Drug Abuse Patient Records regulations: The Federal rules restrict any use of the information to criminally investigate or prosecute any alcohol or drug abuse patient.[facility]hillIn the event this information is protected by the Federal Confidentiality of Alcohol and Drug Abuse Patient Records regulations: The Federal rules restrict any use of the information to criminally investigate or prosecute any alcohol or drug abuse patient.[facility]In the event this information is protected by the Federal Confidentiality of Alcohol and Drug Abuse Patient Records regulations: The Federal rules restrict any use of the information to criminally investigate or prosecute any alcohol or drug abuse patient.[facility]hillIn the event this information is protected by the Federal Confidentiality of Alcohol and Drug Abuse Patient Records regulations: The Federal rules restrict any use of the information to criminally investigate or prosecute any alcohol or drug abuse patient.[facility]hillIn the event this information is protected by the Federal Confidentiality of Alcohol and Drug Abuse Patient Records regulations: The Federal rules restrict any use of the information to criminally investigate or prosecute any alcohol or drug abuse patient.[facility]hillIn the event this information is protected by the Federal Confidentiality of Alcohol and Drug Abuse Patient Records regulations: The Federal rules restrict any use of the information to criminally investigate or prosecute any alcohol or drug abuse patient.[facility]hillIn the event this information is protected by the Federal Confidentiality of Alcohol and Drug Abuse Patient Records regulations: The Federal rules restrict any use of the information to criminally investigate or prosecute any alcohol or drug abuse patient.[facility]hillIn the event this information is protected by the Federal Confidentiality of Alcohol and Drug Abuse Patient Records regulations: The Federal rules restrict any use of the information to criminally investigate or prosecute any alcohol or drug abuse patient.[facility]hillIn the event this information is protected by the Federal Confidentiality of Alcohol and Drug Abuse Patient Records regulations: The Federal rules restrict any use of the information to criminally investigate or prosecute any alcohol or drug abuse patient.[facility]hillIn the event this information is protected by the Federal Confidentiality of Alcohol and Drug Abuse Patient Records regulations: The Federal rules restrict any use of the information to criminally investigate or prosecute any alcohol or drug abuse patient.[facility]hillIn the event this information is protected by the Federal Confidentiality of Alcohol and Drug Abuse Patient Records regulations: The Federal rules restrict any use of the information to criminally investigate or prosecute any alcohol or drug abuse patient.[facility]hillIn the event this information is protected by the Federal Confidentiality of Alcohol and Drug Abuse Patient Records regulations: The Federal rules restrict any use of the information to criminally investigate or prosecute any alcohol or drug abuse patient.[facility]hillIn the event this information is protected by the Federal Confidentiality of Alcohol and Drug Abuse Patient Records regulations: The Federal rules restrict any use of the information to criminally investigate or prosecute any alcohol or drug abuse patient.[facility]hillIn the event this information is protected by the Federal Confidentiality of Alcohol and Drug Abuse Patient Records regulations: The Federal rules restrict any use of the information to criminally investigate or prosecute any alcohol or drug abuse patient.[facility]hillIn the event this information is protected by the Federal Confidentiality of Alcohol and Drug Abuse Patient Records regulations: The Federal rules restrict any use of the information to criminally investigate or prosecute any alcohol or drug abuse patient.[facility]hillIn the event this information is protected by the Federal Confidentiality of Alcohol and Drug Abuse Patient Records regulations: The Federal rules restrict any use of the information to criminally investigate or prosecute any alcohol or drug abuse patient.[facility]hillIn the event this information is protected by the Federal Confidentiality of Alcohol and Drug Abuse Patient Records regulations: The Federal rules restrict any use of the information to criminally investigate or prosecute any alcohol or drug abuse patient.[facility]hillIn the event this information is protected by the Federal Confidentiality of Alcohol and Drug Abuse Patient Records regulations: The Federal rules restrict any use of the information to criminally investigate or prosecute any alcohol or drug abuse patient.[facility]hillIn the event this information is protected by the Federal Confidentiality of Alcohol and Drug Abuse Patient Records regulations: The Federal rules restrict any use of the information to criminally investigate or prosecute any alcohol or drug abuse patient.[facility]hillIn the event this information is protected by the Federal Confidentiality of Alcohol and Drug Abuse Patient Records regulations: The Federal rules restrict any use of the information to criminally investigate or prosecute any alcohol or drug abuse patient.[facility]hillIn the event this information is protected by the Federal Confidentiality of Alcohol and Drug Abuse Patient Records regulations: The Federal rules restrict any use of the information to criminally investigate or prosecute any alcohol or drug abuse patient.[facility]hillIn the event this information is protected by the Federal Confidentiality of Alcohol and Drug Abuse Patient Records regulations: The Federal rules restrict any use of the information to criminally investigate or prosecute any alcohol or drug abuse patient.[facility]hillIn the event this information is protected by the Federal Confidentiality of Alcohol and Drug Abuse Patient Records regulations: The Federal rules restrict any use of the information to criminally investigate or prosecute any alcohol or drug abuse patient.[facility]hillIn the event this information is protected by the Federal Confidentiality of Alcohol and Drug Abuse Patient Records regulations: The Federal rules restrict any use of the information to criminally investigate or prosecute any alcohol or drug abuse patient.[facility]hillIn the event this information is protected by the Federal Confidentiality of Alcohol and Drug Abuse Patient Records regulations: The Federal rules restrict any use of the information to criminally investigate or prosecute any alcohol or drug abuse patient.[facility]hillIn the event this information is protected by the Federal Confidentiality of Alcohol and Drug Abuse Patient Records regulations: The Federal rules restrict any use of the information to criminally investigate or prosecute any alcohol or drug abuse patient.[facility]hillIn the event this information is protected by the Federal Confidentiality of Alcohol and Drug Abuse Patient Records regulations: The Federal rules restrict any use of the information to criminally investigate or prosecute any alcohol or drug abuse patient.[facility]hillIn the event this information is protected by the Federal Confidentiality of Alcohol and Drug Abuse Patient Records regulations: The Federal rules restrict any use of the information to criminally investigate or prosecute any alcohol or drug abuse patient.[facility]hillIn the event this information is protected by the Federal Confidentiality of Alcohol and Drug Abuse Patient Records regulations: The Federal rules restrict any use of the information to criminally investigate or prosecute any alcohol or drug abuse patient.[facility]hillIn the event this information is protected by the Federal Confidentiality of Alcohol and Drug Abuse Patient Records regulations: The Federal rules restrict any use of the information to criminally investigate or prosecute any alcohol or drug abuse patient.[facility]hillIn the event this information is protected by the Federal Confidentiality of Alcohol and Drug Abuse Patient Records regulations: The Federal rules restrict any use of the information to criminally investigate or prosecute any alcohol or drug abuse patient.[facility]hillIn the event this information is protected by the Federal Confidentiality of Alcohol and Drug Abuse Patient Records regulations: The Federal rules restrict any use of the information to criminally investigate or prosecute any alcohol or drug abuse patient.[facility]hillIn the event this information is protected by the Federal Confidentiality of Alcohol and Drug Abuse Patient Records regulations: The Federal rules restrict any use of the information to criminally investigate or prosecute any alcohol or drug abuse patient.[facility]hillIn the event this information is protected by the Federal Confidentiality of Alcohol and Drug Abuse Patient Records regulations: The Federal rules restrict any use of the information to criminally investigate or prosecute any alcohol or drug abuse patient.[facility]hillIn the event this information is protected by the Federal Confidentiality of Alcohol and Drug Abuse Patient Records regulations: The Federal rules restrict any use of the information to criminally investigate or prosecute any alcohol or drug abuse patient.[facility] the event this information is protected by the Federal Confidentiality of Alcohol and Drug Abuse Patient Records regulations: The Federal rules restrict any use of the information to criminally investigate or prosecute any alcohol or drug abuse patient.[facility]In the event this information is protected by the Federal Confidentiality of Alcohol and Drug Abuse Patient Records regulations: The Federal rules restrict any use of the information to criminally investigate or prosecute any alcohol or drug abuse patient.[facility]In the event this information is protected by the Federal Confidentiality of Alcohol and Drug Abuse Patient Records regulations: The Federal rules restrict any use of the information to criminally investigate or prosecute any alcohol or drug abuse patient.[facility]In the event this information is protected by the Federal Confidentiality of Alcohol and Drug Abuse Patient Records regulations: The Federal rules restrict any use of the information to criminally investigate or prosecute any alcohol or drug abuse patient.[facility]In the event this information is protected by the Federal Confidentiality of Alcohol and Drug Abuse Patient Records regulations: The Federal rules restrict any use of the information to criminally investigate or prosecute any alcohol or drug abuse patient.[facility]In the event this information is protected by the Federal Confidentiality of Alcohol and Drug Abuse Patient Records regulations: The Federal rules restrict any use of the information to criminally investigate or prosecute any alcohol or drug abuse patient.[facility]In the event this information is protected by the Federal Confidentiality of Alcohol and Drug Abuse Patient Records regulations: The Federal rules restrict any use of the information to criminally investigate or prosecute any alcohol or drug abuse patient.[facility]In the event this information is protected by the Federal Confidentiality of Alcohol and Drug Abuse Patient Records regulations: The Federal rules restrict any use of the information to criminally investigate or prosecute any alcohol or drug abuse patient.[facility]In the event this information is protected by the Federal Confidentiality of Alcohol and Drug Abuse Patient Records regulations: The Federal rules restrict any use of the information to criminally investigate or prosecute any alcohol or drug abuse patient.[facility]In the event this information is protected by the Federal Confidentiality of Alcohol and Drug Abuse Patient Records regulations: The Federal rules restrict any use of the information to criminally investigate or prosecute any alcohol or drug abuse patient.[facility]In the event this information is protected by the Federal Confidentiality of Alcohol and Drug Abuse Patient Records regulations: The Federal rules restrict any use of the information to criminally investigate or prosecute any alcohol or drug abuse patient.[facility]In the event this information is protected by the Federal Confidentiality of Alcohol and Drug Abuse Patient Records regulations: The Federal rules restrict any use of the information to criminally investigate or prosecute any alcohol or drug abuse patient.[facility]In the event this information is protected by the Federal Confidentiality of Alcohol and Drug Abuse Patient Records regulations: The Federal rules restrict any use of the information to criminally investigate or prosecute any alcohol or drug abuse patient.[facility]In the event this information is protected by the Federal Confidentiality of Alcohol and Drug Abuse Patient Records regulations: The Federal rules restrict any use of the information to criminally investigate or prosecute any alcohol or drug abuse patient.[facility]In the event this information is protected by the Federal Confidentiality of Alcohol and Drug Abuse Patient Records regulations: The Federal rules restrict any use of the information to criminally investigate or prosecute any alcohol or drug abuse patient.[facility]In the event this information is protected by the Federal Confidentiality of Alcohol and Drug Abuse Patient Records regulations: The Federal rules restrict any use of the information to criminally investigate or prosecute any alcohol or drug abuse patient.[facility]In the event this information is protected by the Federal Confidentiality of Alcohol and Drug Abuse Patient Records regulations: The Federal rules restrict any use of the information to criminally investigate or prosecute any alcohol or drug abuse patient.[facility]In the event this information is protected by the Federal Confidentiality of Alcohol and Drug Abuse Patient Records regulations: The Federal rules restrict any use of the information to criminally investigate or prosecute any alcohol or drug abuse patient.[facility]In the event this information is protected by the Federal Confidentiality of Alcohol and Drug Abuse Patient Records regulations: The Federal rules restrict any use of the information to criminally investigate or prosecute any alcohol or drug abuse patient.[facility]In the event this information is protected by the Federal Confidentiality of Alcohol and Drug Abuse Patient Records regulations: The Federal rules restrict any use of the information to criminally investigate or prosecute any alcohol or drug abuse patient.[facility]In the event this information is protected by the Federal Confidentiality of Alcohol and Drug Abuse Patient Records regulations: The Federal rules restrict any use of the information to criminally investigate or prosecute any alcohol or drug abuse patient.[facility]In the event this information is protected by the Federal Confidentiality of Alcohol and Drug Abuse Patient Records regulations: The Federal rules restrict any use of the information to criminally investigate or prosecute any alcohol or drug abuse patient.[facility] [place] FOR RECORDS PERTAINING TO PATIENTS WHO ARE [...] BE BASED ON THE PRIMARY CLINICAL RECORDS. [facility]. provides no warranty or guarantee of the accuracy or completeness of information in this document.
--- NOTE | 2024-08-14 09:41 | P.CN_ITS ---
Consult Note: HPI Data of Consult Patient: known to practice within the last 3 years Requesting Physician: Elizabeth Sierra NP Primary Care Provider: CHARLES BAZZI Consult Narrative Reason for consult: f/u Narrative: Cristina Kelley a pleasant 68 year old female with OA of left knee presents for evaluation of left knee pain. Pt recently underwent left genicular RFA with 50% improvement in pain and functional ability ongoing. Pain today 5/10 sharp shooting pain. Notices increased pain with standing, walking, stairs, bending, activity. Improvement in pain with lying, sitting, heat/ice, tylenol, mobic, and voltaren gel PRN. cc:: CC: Elizabeth Sierra NP Review of Systems ROS Status of ROS 10 or more systems reviewed and unremark able except as noted in history and below Musculoskeletal Reports: joint pain PFSH PFSH Medical History (Updated 05/21/24 @ 08:45 by Delphine Madera DO) H/O malignant neoplasm of colon ?Z85.038 - Personal history of other malignant neoplasm of large intestine (ICD-10) Osteoarthritis ?M19.90 - Unspecified osteoarthritis, unspecified site (ICD-10) Heartburn ?R12 - Heartburn (ICD-10) Acid reflux ?K21.9 - Gastro-esophageal reflux disease without esophagitis (ICD-10) Hypertension ?I10 - Essential (primary) hypertension (ICD-10) Surgical History H/O major abdominal surgery ?Z98.890 - Other specified postprocedural states (ICD-10) S/P total knee arthroplasty ?Z96.659 - Presence of unspecified artificial knee joint (ICD-10) Social History Little interest or pleasure in doing things: not at all Feeling down, depressed, or hopeless: not at all Meds Home Medications and Allergies Home Medications ?Medication ?Instructions ?Recorded ?Confirmed ?Type aspirin 81 mg tablet,delayed 81 mg PO DAILY 03/04/24 07/15/24 History release (Adult Low Dose Aspirin) meloxicam 15 mg tablet 15 mg PO DAILY 03/04/24 07/15/24 History omeprazole 40 mg capsule,delayed 40 mg PO DAILY 03/04/24 07/15/24 History release oxybutynin chloride 15 mg 15 mg PO DAILY 03/04/24 07/15/24 History tablet,extended release 24 hr vortioxetine 10 mg tablet 10 mg PO DAILY 03/04/24 05/21/24 History (Trintellix) sulfamethoxazole 800 1 tab PO Q12H 10 days #20 tabs 05/21/24 Rx mg-trimethoprim 160 mg tablet (Bactrim DS) escitalopram oxalate 10 mg tablet 10 mg PO DAILY 07/15/24 07/15/24 History (Lexapro) Allergies Allergy/AdvReac Type Severity Reaction Status Date / Time No Known Drug Allergies Allergy Verified 05/21/24 08:00 Exam Constitutional Documenting provider has reviewed patient's vital signs: yes Common normals: no apparent distress, oriented x3, healthy appearing, alert and well nourished General appearance: cooperative HENMT Common normals: normocephalic, hearing grossly normal bilaterally and moist oral mucous membranes Head and scalp: normocephalic Eye Common normals: PERRL Pupil: PERRL Neck & C-Spine Common normals: full ROM General: normal visual inspection Chest Common normals: inspection of chest normal Respiratory Common normals: normal respiratory effort, no retractions and no use of accessory muscles Extremity Left lower extremity: knee joint Other: enlarged diameter, moderate crepitus, no instability with medial and lateral stress testing, mild edema, no redness or warmth noted. Neuro Common normals: oriented x3, CN's II-XII intact bilaterally, moves all extremities, no focal motor deficits, no sensory deficits noted and deep tendon reflexes 2+ bilaterally Sensorium/orientation: alert Motor exam: strength 5/5 throughout and no movement abnormalities noted Psych Common normals: mental status grossly normal, thought process normal, cooperative, affect normal, speech normal and activity/motor behavior normal Speech: normal speech Thought process: normal thought process Results Additional Findings Additional findings: If on a controlled substance or opioids, I have checked an [place] report on this patient and there are no aberrancies noted in the prescribing history.??If on a controlled substance or opioid a drug screen was completed and reviewed within the last year, and if there has not been a drug screen completed we ordered one today to monitor higher risk, state monitored pain medication use. As part of providing excellent, safe, comprehensive care, the following was completed at our patient's visit: 1. A medication reconciliation and review to ensure accurate knowledge of current/active medications, including asking our patients to inform us about any [id number] medications or herbal remedies/nutritional supplements/alternative remedies. 2. A review to specifically ensure our patients have had annual screening for screening for depression, screening for tobacco use, and screening for unhealthy alcohol use. For concerning screenings had a discussion with the patient, provided patient education, and recommended follow-up with primary care provider when appropriate. If patient noted with a risk of falling, they received education on strength, gait, and balance training to prevent future risk of falling. Portions of this note may have been carried over from the previous visit and updated as appropriate. Please note this office utilizes paper charting in addition to the electronic medical record. A list of current medications, vitals, and PMH is available there as the clinical staff outside of myself do not have access to [employer] charting during the clinic day operations. As part of providing quality comp rehensive care the current medications, vitals, and PMH were reviewed in the paper chart. Assessment and Plan Assessment and Plan (1) Unilateral primary osteoarthritis, left knee: Plan continue PRN tylenol, meloxicam, heat/ice, voltaren gel continue HEP as tolerated f/u 6 months, sooner if needed
== END 2024-08-14 09:19 | disposition home or self-care (01) ==
LOC: PM 09:19
PROVIDERS: PCP Family Medicine; Visit Provider Nurse Practitioner
DX: M17.12 Unilateral primary osteoarthritis, left knee (principal)
CPT/HCPCS: G0463

== ENCOUNTER 2024-09-04 07:35 | Outpatient (RCR) | payer MEDICARE, OTHER, SELFPAY ==
[2024-09-04 10:27] VITALS: BP 133/70; PULSE 81; TEMP 36.6; O2SAT 97
[2024-09-04] MEDS: DENOSUMAB 60 MG/ML SYRINGE SUBQ (10:57)
== END 2024-09-04 13:17 | disposition home or self-care (01) ==
LOC: INF 07:35
PROVIDERS: PCP Family Medicine
DX: M85.80 Other specified disorders of bone density and structure, unspecified site (principal)
CPT/HCPCS: 96372; J0897

== ENCOUNTER 2024-11-04 12:51 | Outpatient (OUT) | payer MEDICARE, OTHER, SELFPAY ==
--- NOTE | 2024-11-04 14:07 | P.CN_ITS ---
Consult Note: HPI Data of Consult Patient: known to practice within the last 3 years Consult date: 11/04/24 Requesting Physician: Priscilla Robledo MD Primary Care Provider: CHARLES BAZZI Consult Narrative Reason for consult: left knee pain Narrative: 69yof who presents for assessment. notes increasing left knee pain. previously had genicular nerve block in march of 2024, which provided significant benefit >3 months. is trying to avoid knee replacement due to dealing with colon cancer issues. continues to engage in series of provider directed home exercises >6 weeks, without benefit. cc:: CC: Priscilla Robledo MD Review of Systems ROS Status of ROS 10 or more systems reviewed and unremark able except as noted in history and below PFSH [facility] Medical History H/O malignant neoplasm of colon ?Z85.038 - Personal history of other malignant neoplasm of large intestine (ICD-10) Osteoarthritis ?M19.90 - Unspecified osteoarthritis, unspecified site (ICD-10) Heartburn ?R12 - Heartburn (ICD-10) Acid reflux ?K21.9 - Gastro-esophageal reflux disease without esophagitis (ICD-10) Hypertension ?I10 - Essential (primary) hypertension (ICD-10) Surgical History H/O major abdominal surgery ?Z98.890 - Other specified postprocedural states (ICD-10) S/P total knee arthroplasty ?Z96.659 - Presence of unspecified artificial knee joint (ICD-10) Social History Little interest or pleasure in doing things: not at all Feeling down, depressed, or hopeless: not at all Meds Home Medications and Allergies Home Medications ?Medication ?Instructions ?Recorded ?Confirmed ?Type aspirin 81 mg tablet,delayed 81 mg PO DAILY 03/04/24 07/15/24 History release (Adult Low Dose Aspirin) meloxicam 15 mg tablet 15 mg PO DAILY 03/04/24 07/15/24 History omeprazole 40 mg capsule,delayed 40 mg PO DAILY 03/04/24 07/15/24 History release oxybutynin chloride 15 mg 15 mg PO DAILY 03/04/24 07/15/24 History tablet,extended release 24 hr vortioxetine 10 mg tablet 10 mg PO DAILY 03/04/24 05/21/24 History (Trintellix) sulfamethoxazole 800 1 tab PO Q12H 10 days #20 tabs 05/21/24 Rx mg-trimethoprim 160 mg tablet (Bactrim DS) escitalopram oxalate 10 mg tablet 10 mg PO DAILY 07/15/24 07/15/24 History (Lexapro) Allergies Allergy/AdvReac Type Severity Reaction Status Date / Time No Known Drug Allergies Allergy Verified 05/21/24 08:00 Exam Narrative Exam Narrative: Psych-alert and oriented x 3.? Attentive and appropriate, constitutionally normal, displays normal mood and affect per situation.? There are no obvious deficits in memory, reasoning, or intellect. Extremities-lower extremities are warm with minimal edema and palpable pulses. Knee-examination of the left knee reveals tenderness to palpation over the superior, inferior, lateral, and medial aspect of the knee.? Some swelling is noted without erythema. Pain is elicited with flexion and extension of the knee both actively and passively.? Some grinding is noted with these motions.? There is no notable ligamental laxity or instability.? Coordination remains intact.? Gait remains antalgic. Assessment and Plan Assessment and Plan (1) Unilateral primary osteoarthritis, left knee: Plan 69yof who presents for assessment. continues to have left knee pain. given previous relief after genicular nerve block, prudent to repeat left genicular nerve block under fluoroscopic guidance. she is in agreement. meds reviewed, no changes. follow up after procedure.
== END 2024-11-04 12:52 | disposition home or self-care (01) ==
LOC: PM 12:51
PROVIDERS: PCP Family Medicine; Visit Provider Anesthesiology
DX: M17.12 Unilateral primary osteoarthritis, left knee (principal)
CPT/HCPCS: G0463

== ENCOUNTER 2024-11-11 07:42 | Day surgery (SDC) | payer MEDICARE, OTHER, SELFPAY ==
[2024-11-11 08:04] VITALS: BP 117/74; PULSE 117; TEMP 36.2; O2SAT 98
[2024-11-11 08:48] VITALS: BP 146/64; PULSE 64; O2SAT 96
[2024-11-11 08:49] VITALS: BP 135/63; PULSE 62; O2SAT 95
[2024-11-11] MEDS: BUPIVACAINE HCL 0.25% PF 25 MG/10 ML VIAL 5 ML INJ (08:49)
[2024-11-11] MEDS: METHYLPREDNISOLONE ACETATE 40 MG/ML VIAL INJ (08:50)
--- NOTE | 2024-11-11 08:52 | W.PM.PROCNOT ---
Date of procedure: 11/11/24 Pre-op diagnosis: Pain due to left knee osteoarthritis Post-op diagnosis: same as pre-op Procedure: Procedure: Left knee genicular nerve block Medications: Bupivacaine 0.25% 4cc, depomedrol 40mg The patient was taken to the procedures suite and positioned in the supine position. I explained the details of the procedure to the patient including the risks, benefits and alternatives. We had an informed discussion and the patient verbalized understanding and signed the consent form. All questions were answered appropriately.? A 'time out' procedure was performed. The patient was identified, the chart was reviewed, and all allergies were confirmed. Laterality was conducted and marked. The left knee was marked with a sterile marking pen, prepped times three, and sterilely draped.? Under fluoroscopic guidance, branches of the genicular nerves were localized.? First the superior medial genicular nerve was localized where the femoral shaft meets the medial epicondyle.? Skin was anesthetized with 1% lidocaine.? A 25-gauge 3.5 in needle was advanced in a coaxial manner in the AP view.? This was repeated on the superior lateral genicular nerve where the femoral shaft meets the lateral epicondyle and the inferior medial genicular nerve where the medial tibial shaft meets the tibial epicondyle. After negative aspiration for blood or other bodily fluids, 1cc of medication was injected at each of the three sites. The needles were removed and the sites of injection were bandaged. The patient was transported to the postoperative area in good condition. Anesthesia: Local Surgeon: Priscilla Robledo Pathology: none sent Condition: stable Disposition: no change
== END 2024-11-11 08:57 | disposition home or self-care (01) ==
LOC: SURGOUT 07:43
PROVIDERS: PCP Family Medicine; Visit Provider Anesthesiology
DX: M17.12 Unilateral primary osteoarthritis, left knee (principal); E11.8 Type 2 diabetes mellitus with unspecified complications; Z79.84 Long term (current) use of oral hypoglycemic drugs
CPT/HCPCS: 64454; J0665; J1010

== ENCOUNTER 2024-11-20 09:12 | Outpatient (OUT) | payer MEDICARE, OTHER, SELFPAY ==
--- NOTE | 2024-11-20 09:48 | PM.CN ---
Consult Note: HPI Data of Consult Patient: known to practice within the last 3 years Requesting Physician: Elizabeth Sierra NP Primary Care Provider: CHARLES LUCIOPacheco Consult Narrative Reason for consult: left knee pain Narrative: 69yof who presents for assessment. since last visit she underwent a left genicular nerve block with 100% improvement in pain ongoing and >50% improvement in functional ability. continues to utilize voltaren gel, meloxicam, and PRN ibuprofen without side effects. pain 0/10 increasing to 0/10. cc:: CC: Elizabeth Sierra NP Review of Systems ROS Status of ROS 10 or more systems reviewed and unremarkable except as noted in history and below PFSH PFS Medical History H/O malignant neoplasm of colon ?Z85.038 - Personal history of other malignant neoplasm of large intestine (ICD-10) Osteoarthritis ?M19.90 - Unspecified osteoarthritis, unspecified site (ICD-10) Heartburn ?R12 - Heartburn (ICD-10) Acid reflux ?K21.9 - Gastro-esophageal reflux disease without esophagitis (ICD-10) Hypertension ?I10 - Essential (primary) hypertension (ICD-10) Surgical History H/O major abdominal surgery ?Z98.890 - Other specified postprocedural states (ICD-10) S/P total knee arthroplasty ?Z96.659 - Presence of unspecified artificial knee joint (ICD-10) Social History Little interest or pleasure in doing things: not at all Feeling down, depressed, or hopeless: not at all Meds Home Medications and Allergies Home Medications ?Medication ?Instructions ?Recorded ?Confirmed ?Type aspirin 81 mg tablet,delayed 81 mg PO DAILY 03/04/24 11/11/24 History release (Adult Low Dose Aspirin) meloxicam 15 mg tablet 15 mg PO DAILY 03/04/24 11/11/24 History omeprazole 40 mg capsule,delayed 40 mg PO DAILY 03/04/24 11/11/24 History release oxybutynin chloride 15 mg 15 mg PO DAILY 03/04/24 11/11/24 History tablet,extended release 24 hr escitalopram oxalate 10 mg tablet 10 mg PO DAILY 07/15/24 11/11/24 History (Symcatapro) Allergies Allergy/AdvReac Type Severity Reaction Status Date / Time No Known Drug Allergies Allergy Verified 11/11/24 08:03 Exam Narrative Exam Narrative: Psych-alert and oriented x 3.? Attentive and appropriate, constitutionally normal, displays normal mood and affect per situation.? There are no obvious deficits in memory, reasoning, or intellect. Extremities-lower extremities are warm with minimal edema and palpable pulses. Knee-examination of the left knee reveals no tenderness to palpation over the superior, inferior, lateral, and medial aspect of the knee.? Some swelling is noted without erythema. no pain is elicited with flexion and extension of the knee both actively and passively.? Some grinding is noted with these motions.? There is no notable ligamental laxity or instability.? Coordination remains intact.? Gait remains antalgic. Assessment and Plan Assessment and Plan (1) Unilateral primary osteoarthritis, left knee: Assessment and Plan: 11/11/24 left genicular nerve block 100% improvement ongoing Plan continue current medications f/u PRN
== END 2024-11-20 09:13 | disposition home or self-care (01) ==
LOC: PM 09:12
PROVIDERS: PCP Family Medicine; Visit Provider Nurse Practitioner
DX: M17.12 Unilateral primary osteoarthritis, left knee (principal)
CPT/HCPCS: G0463

== ENCOUNTER 2025-02-12 09:10 | Outpatient (OUT) | payer MEDICARE, OTHER, SELFPAY ==
--- OUTSIDE RECORDS SUMMARY | 2025-02-10 12:41 | XMS_ITS | Encounter Summary ---
Author Organization [facility] Address [address] [place] [id number] Care Team Providers Care Bottom Liquor Attendant Name Role Phone Leon Colin Primary Care Provider [phone] Tapan Corona MD Unavailable [phone] Naheed Elias PA-C Unavailable [phone] Maryuri Rodriguez Unavailable Unavailable Source Comments In the event this information is protected by the Federal Confidentiality of Alcohol and Drug AbusePatient Records regulations: The Federal rules restrict any use of the information to criminally investigate or prosecute any alcohol or drug abuse patient.[facility] Reason for Visit * Reason Comments Radiology NM * MRI/CT (Routine) - Closed Specialty Diagnoses / Procedures Referred By Contac t Referred To Contact CT IMAGING Diagnoses History of rectal cancer Rectal cancer (HCC) Procedures CT ABD/PEL W IVCON CT ABD & PELVIS W/CONTRAST Tapan Corona MD [address] [place] [id number] Phone: tel: fax: [place] [phone] Referral ID Status Reason Start Date Expiration Date V isits Requested Visits Authorized [id number] Closed Auto-Generate d Referral 09/03/2024 10/03/2025 1 1 Encounter Details Date Type Department Care Team (Latest Contact Info) Description 02/10/2025 12:41 PM EDT - 02/10/2025 11:59 PM EDT Hospital Encounter Radiology Pet CT [address] [address] History of rectal cancer [Z85.048] Discharge Disposition: Home Social History Tobacco Use Types Packs/Day Years Used Date Smoking Tobacco: Never Passive Smoke Exposure: Past Smokeless Tobacco: Never Alcohol Use Standard Drinks/Week Comments Yes 0 (1 standard drink = 0.6 oz pur e alcohol) 2 times a month if that [facility] Utilities Answer Date Recorded In the past 12 months has th e electric, gas, oil, or water company threatened to shut off services in your home? No 11/09/2023 Overall Financial Resource Strain (CARDIA) Answe r Date Recorded How hard is it for you to pa y for the very basics like food, housing, medical care, and heating? Patient declined 08/31/2023 PHQ-2 Answer Date Recorded PHQ-2 score 0 09/02/2024 Hunger Vital Sign Answer Date Recorded Within the past 12 months, y ou worried that your food would run out before you got the money to buy more. Never true 11/09/19 24 Within the past 12 months, t he food you bought just didn't last and you didn't have money to get more. Never true 11/09/2023 PRAPARE - Transportation Answer Date Re corded In the past 12 months, has l ack of transportation kept you from medical appointments or from getting medications? No 08/2023 In the past 12 months, has l ack of transportation kept you from meetings, work, or from getting things needed for daily living? No 11/09/2023 Housing Stability Vital Sign Answer Luigi e Recorded In the last 12 months, was t here a time when you were not able to pay the mortgage or rent on time? No 11/09/2023 Number of Places Lived in the Last Year Not on f ile 11/09/2023 In the last 12 months, was t here a time when you did not have a steady place to sleep or slept in a chcf (including now)? No 11/09/2023 Comments No Sex and Gender Information Value Date Recorded Sex Assigned at Not on file Legal Sex Female 9:50 AM EST Gender Identity Not on file Sexual Orientation Not on file documented as of this encounter Functional Status * Are you deaf or do you have serious difficulty hearing? Answer Date of Assessment Author No 09/04/2023 3:54 PM Rush Cano RN * Are you blind or do you have serious difficulty seeing, even when wearing glasses? Answer Date of Assessment Author No 09/04/2023 3:54 PM Rush Cano RN * Do you have serious difficulty walking or climbing stairs? Answer Date of Assessment Author No 09/04/2023 3:54 PM Rush Cano RN * Do you have difficulty dressing or bathing? Answer Date of Assessment Author No 09/04/2023 3:54 PM Rush Cano RN * Because of a physical, mental, or emotional condition, do you have difficulty doing errands alone such as visiting a doctor's office or shopping? Answer Date of Assessment Author No 09/04/2023 3:54 PM Rush Cano RN documented as of this encounter Mental Status * Because of a physical, mental, or emotional condition, do you have serious difficulty concentrating, remembering, or making decisions? Answer Entry Date Author No 09/04/2023 3:54 PM Rush Cano RN documented in this encounter Medications at Time of Discharge LEXAPRO 10 mg tablet 06/13/2024 meloxicam (MOBIC) 15 mg tablet Take 15 mg by mouth once daily. ondansetron orally disintegrating (ZOFRAN ODT) 8 mg disintegrating tablet Take 1 tablet by mouth every 8 hours as needed for nausea/vomit ing. 90 tablet 2 02/07/2024 9:47 AM EDT 02/06/2024 omeprazole (PRILOSEC) 40 mg capsule Take 40 mg by mouth once daily. 07/09/2018 oxybutynin ER (DITROPAN XL) 15 mg 24 hr Extended Rel Tab Take 15 mg by mouth. 11/11/2022 aspirin, enteric coated (ASPIRIN, ENTERIC COATED) 81 mg EC tablet Take 81 mg by mouth once daily. documented as of this encounter Progress Notes * Arlene Gomez RN - 02/10/2025 1:15 PM EDT Radiology Service Progress Note DATE OF SERVICE: February 10, 2025 TIME: 1:02 PM PATIENT WEIGHT: 147LBS PATIENT IDENTITY VERIFICATION COMPLETED USING TWO (2) STANDARD IDENTIFIERS: Name and Date of confirmed by patient verbally. FALL SCREENING: Has the patient had 2 falls in the last year or 1 fall with injury or currently using an Ambulatory Assistive Device (Walker, Cane, Wheelchair, Crutches, etc.)? No PATIENT GENDER DATA: Assigned female at . status: : No status:NO. ALLERGIES: Reviewed and unchanged CONTRAST ALLERGY: No EXAM: CT -CONTRAST INDUCED NEPHROPATHY RISK FACTORS: Patient age > 60 years CREATININE: Creatinine Date Value Ref Range Status 08/19/2024 0.74 0.58 - 0.96 mg/dL Final 05/08/2024 0.69 0.58 - 0.96 mg/dL Final 02/06/2024 0.75 0.58 - 0.96 mg/dL Final Estimated Glomerular Filtration Rate Date Value Ref Range Status 08/19/2024 87 >=60 mL/min/1.73m Final Comment: Estimated Glomerular Filtration Rate (eGFR) is calculated using the 2020 CKD-EPI creatinine equation. This equation utilizes serum creatinine, sex, and age as parameters. The creatinine assay has traceable calibration to isotope dilution- mass spectrometry. Refer to KDIGO guidelines for clinical interpretation. In patients with unstable renal function, e.g. those with acute kidney injury, the eGFRmay not accurately reflect actual GFR. P.O.C.T. RESULTS: POC done: Yes, See Lab Tab February 10, 2025 TREATMENT: N/A IV SITE: Ambulatory: A peripheral IV was started in the Right antecubital site with a Angio cath: 20 gauge. IV SITE APPEARANCE: Clean,Dry and Intact SIGNATURE: Arlene Gomez RN PATIENT NAME: Cristina Kelley DATE: February 10, 2025 TIME: 1:02 PM * Arnav Palomino RT(R) - 02/10/2025 1:15 PM EDT Radiology Service Progress Note PATIENT NAME: Cristina Kelley DATE OF SERVICE: February 10, 2025 TIME: 1:35 PM PATIENT IDENTITY VERIFICATION COMPLETED USING TWO (2) IDENTIFIERS: Name and Date of confirmedby patient verbally. FALL SCREENING: Has the patient had 2 falls in the last year or 1 fall with injury or currently using an Ambulatory Assistive Device (Walker, Cane, Wheelchair, Crutches, etc.)? No PATIENT GENDER DATA: Assigned female at . status: : No status:NO. PATIENT RELEVANT IMPLANT DATA REVIEWED: Not Applicable PATIENT PRESENTS WITH AN IMPLANTABLE OR ATTACHED WEB MASTER: No RADIOLOGY DEPARTMENT: CT; Exam(s) Completed: Chest Abdomen Pelvis PERIPHERAL IV DATA: Site assessment: Clean,Dry and Intact, Site disposition Discontinued SIGNED BY: RT Jovanni(R) February 10, 2025 1:35 PM documented in this encounter Plan of Treatment Upcoming Encounters Date Type Department Care Team (Late st Contact Info) Description 02/19/2025 1:00 PM EDT OT/PT/Speech Visit Physical Therapy [address] [place] [address] Therese Anthony, PT [address] [place] [address] 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] 02/20/2025 1:20 PM EDT Office Visit Colorectal Surgery [address] [place] [address] [place] [address] [place] [address] Est Pt: 1 yr f/up, robotic LAR, DLI, surgery 08/25/23 02/20/2025 2:00 PM EDT Visit (SP) Office Hematology [address] [place] [address] Tapan Corona MD [address] [place] [address] [place] 03/12/2025 2:45 PM EDT OT/PT/Speech Visit Physical Therapy [address] [place] [address] Therese Anthony A, PT [address] [place] [address] 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] 04/02/2025 1:00 PM EDT OT/PT/Speech Visit Physical Therapy [address] [place] [address] WiTherese ochoa A, PT [address] [place] [address] 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] 04/16/2025 9:45 AM EDT Office Visit Radiation Oncology [address] [place] [address] Del Aguilar MD [address] [place] [address] [place] [address] Return in about 6 months 04/23/2025 1:00 PM EDT OT/PT/Speech Visit Physical Therapy [address] [place] [address] Therese Anthony A, PT [address] [place] [address] 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] documented as of this encounter Procedures Procedure Name Priority Date/Time Associated Diagnosis Comments CT ABD/PEL W IVCON Routine 02/10/2025 1: 51 PM EDT History of rectal cancer Rectal cancer (HCC) CT CHEST W IVCON Routine 02/10/2025 1:51 PM EDT History of rectal cancer Rectal cancer (HCC) COMPREHENSIVE METABOLIC PANEL Routine 02/10/2025 12:42 PM EDT History of rectal cancer Rectal cancer (HCC) CEA BLD Routine 02/10/2025 12:42 PM EDT History of rectal cancer Rectal cancer (HCC) CBC + DIFF Routine 02/10/2025 12:42 PM EDT History of rectal cancer Rectal cancer (HCC) documented in this encounter Results * CT CHEST W IVCON (02/10/2025 1:51 PM EDT) Anatomical Region Laterality Modality Chest Nuclear Medicine , Nuclear Medicine 02/10/2025 1:51 PM EDT Impressions 02/11/2025 11:26 AM EDT IMPRESSION: 1. No thoracic metastatic disease. 2. Please refer to concurrently acquired and separately reported abdomen CT for findings related to the upper abdomen. Transcribe Date/Time: Feb 11 2025 11:00A Dictated by: JANY GONZALEZ MD This examination was interpreted and the report reviewed and electronically signed by: JANY GONZALEZ MD on Feb 11 2025 11:24AM EST Thank you for allowing us to participate in the care of your patient. Should there be any questions regarding this interpretation, please call [phone]. If you are unable to reach us at the number above, please feel free to contact [facility] at [phone]. Narrative 02/11/2025 11:26 AM EDT * * *Final Report* * * DATE OF EXAM: Feb 10 2025 1:51PM [facility] 0539 - CT CHEST W IVCON / PROCEDURE REASON: multiple diagnoses * * * * Physician Interpretation * * * * RESULT: EXAMINATION: CHEST CT WITH CONTRAST CLINICAL HISTORY: Rectal cancer. Examination for follow-up. Technique: Spiral CT acquisition of the chest from the thoracic inlet to the upper abdomen following IV contrast. MQ: CTCW_6 Contrast: 100 mL Omnipaque [address] Radiation dose: Integrated Dose-length product (DLP) for this visit = 1161 mGy*cm CT Dose Reduction Employed: Automated exposure control (AEC) Comparison: CT chest 10/25/2023 and 03/06/2023 RESULT: Limitations: None. Lines, tubes, and devices: None. Lung parenchyma and airways: No dense airspace consolidation. Unchanged mild subpleural reticular opacities. The central tracheobronchial tree is patent. Unchanged nonspecific 0.4 cm nodule within the lingula (series 3, image 104). No enlarging suspicious pulmonary nodule. Pleural space: No pleural effusion. No pleural thickening. Lower neck, lymph nodes, and mediastinum: The imaged thyroid is unremarkable. No supraclavicular, axillary, mediastinal, or hilar lymphadenopathy. Heart, pericardium, and thoracic vessels: The thoracic aorta and main pulmonary artery are normal in caliber. The cardiac chambers are normal in size. Minimal coronary artery atherosclerotic calcifications are noted, although the study is not optimized for coronary assessment. No pericardial effusion or thickening. Bones and soft tissues: Degenerative change involves the thoracic spine. No destructive lytic or blastic osseous abnormality. Upper abdomen: Please refer to concurrently acquired and separately reported abdomen CT for findings related to the upper abdomen. Localizer images: No additional findings. Procedure Note Provider, [facility] - 02/11/2025 * * *Final Report* * * DATE OF EXAM: Feb 10 2025 1:51PM [facility] 0539 - CT CHEST W IVCON / PROCEDURE REASON: multiple diagnoses * * * * Physician Interpretation * * * * RESULT: EXAMINATION: CHEST CT WITH CONTRAST CLINICAL HISTORY: Rectal cancer. Examination for follow-up. Technique: Spiral CT acquisition of the chest from the thoracic inlet to the upper abdomen following IV contrast. MQ: CTCW_6 Contrast: 100 mL Omnipaque [address] Radiation dose: Integrated Dose-length product (DLP) for this visit = 1161 mGy*cm CT Dose Reduction Employed: Automated exposure control (AEC) Comparison: CT chest 10/25/2023 and 03/06/2023 RESULT: Limitations: None. Lines, tubes, and devices: None. Lung parenchyma and airways: No dense airspace consolidation. Unchanged mild subpleural reticular opacities. The central tracheobronchial tree is patent. Unchanged nonspecific 0.4 cm nodule within the lingula (series 3, image 104). No enlarging suspicious pulmonary nodule. Pleural space: No pleural effusion. No pleural thickening. Lower neck, lymph nodes, and mediastinum: The imaged thyroid is unremarkable. No supraclavicular, axillary, mediastinal, or hilar lymphadenopathy. Heart, pericardium, and thoracic vessels: The thoracic aorta and main pulmonary artery are normal in caliber. The cardiac chambers are normal in size. Minimal coronary artery atherosclerotic calcifications are noted, although the study is not optimized for coronary assessment. No pericardial effusion or thickening. Bones and soft tissues: Degenerative change involves the thoracic spine. No destructive lytic or blastic osseous abnormality. Upper abdomen: Please refer to concurrently acquired and separately reported abdomen CT for findings related to the upper abdomen. Localizer images: No additional findings. IMPRESSION IMPRESSION: 1. No thoracic metastatic disease. 2. Please refer to concurrently acquired and separately reported abdomen CT for findings related to the upper abdomen. Transcribe Date/Time: Feb 11 2025 11:00A Dictated by: JANY GONZALEZ MD This examination was interpreted and the report reviewed and electronically signed by: JANY GONZALEZ MD on Feb 11 2025 11:24AM EST Thank you for allowing us to participate in the care of your patient. Should there be any questions regarding this interpretation, please call [phone]. If you are unable to reach us at the number above, please feel free to contact [facility] at [phone]. us Tapan Corona MD CT-PAMA Final Result * CT ABD/PEL W IVCON (02/10/2025 1:51 PM EDT) Anatomical Region Laterality Modality Abdomen Nuclear Medicine , Nuclear Medicine 02/10/2025 1:51 PM EDT Impressions 02/11/2025 11:27 AM EDT IMPRESSION: 1. No recurrent or metastatic disease within the abdomen/pelvis. 2. Since 11/06/2023, interval takedown of right lower quadrant ileostomy. 3. Please refer to concurrently acquired and separately reported chest CT for findings related to the thorax. Transcribe Date/Time: Feb 11 2025 10:59A Dictated by: JANY GONZALEZ MD This examination was interpreted and the report reviewed and electronically signed by: JANY GONZALEZ MD on Feb 11 2025 11:25AM EST Thank you for allowing us to participate in the care of your patient. Should there be any questions regarding this interpretation, please call [phone]. If you are unable to reach us at the number above, please feel free to contact [facility] at [phone]. Narrative 02/11/2025 11:27 AM EDT * * *Final Report* * * DATE OF EXAM: Feb 10 2025 1:51PM [facility] 0530 - CT ABD/PEL W IVCON / PROCEDURE REASON: multiple diagnoses * * * * Physician Interpretation * * * * RESULT: EXAMINATION: CT ABDOMEN AND PELVIS WITH IV CONTRAST CLINICAL HISTORY: Rectal cancer. Examination for follow-up. TECHNIQUE: CT of the abdomen and pelvis was performed using standard technique, scanning from just above the dome of the diaphragm to the symphysis pubis. MQ: CTAP_3 Contrast: IV: 100 ml of Omnipaque 350 Oral: 500 ml of Omni 240 10-25ml diluted with water CT Radiation dose: Integrated Dose-length product (DLP) for this visit = 1161 mGy*cm. CT Dose Reduction Employed: Automated exposure control (AEC) COMPARISON: CT abdomen/pelvis 11/06/2023, 08/31/2023 RESULT: Liver: Normal liver morphology. No suspicious hepatic mass. Biliary: No bile duct dilation. Gallbladder is absent. Spleen: No mass. No splenomegaly. Pancreas: No mass or duct dilation. Adrenals: No mass. Kidneys: The kidneys enhance symmetrically. No suspicious renal mass. No collecting system dilatation. GI tract: Interval takedown of right lower quadrant ileostomy. The bowel is normal in caliber and without evidence of wall thickening or obstruction. Operative changes reflect low anterior resection with widely patent coloanal anastomosis. A right lower quadrant enteroenteric anastomosis is widely patent. Lymph nodes: No abdominal or pelvic lymphadenopathy. Mesentery/Peritoneum: No ascites or mass. Retroperitoneum: No mass. Vasculature: - Abdominal aorta and iliac arteries: No aneurysm. - Celiac and SMA: Patent without stenosis. - Portal venous system (SMV, splenic vein, portal vein and branches): Patent. - Hepatic veins: Patent. Pelvis: No mass, ascites or fluid collection. The rectum, uterus, and adnexa are unremarkable. Unchanged mild bladder wall thickening, likely secondary to treatment-related change. Bones/Soft Tissues: Degenerative change involves the hips and lumbar spine. There are bilateral L5 pars defects with grade 1 anterolisthesis of L5 on S1. Linear scarring within the right lower quadrant anterolateral abdominal wall is compatible prior ostomy site. Lower thorax: A chest CT performed will be reported separately. Localizer images: No additional findings. Procedure Note Provider, [facility] - 02/11/2025 * * *Final Report* * * DATE OF EXAM: Feb 10 2025 1:51PM [facility] 0530 - CT ABD/PEL W IVCON / PROCEDURE REASON: multiple diagnoses * * * * Physician Interpretation * * * * RESULT: EXAMINATION: CT ABDOMEN AND PELVIS WITH IV CONTRAST CLINICAL HISTORY: Rectal cancer. Examination for follow-up. TECHNIQUE: CT of the abdomen and pelvis was performed using standard technique, scanning from just above the dome of the diaphragm to the symphysis pubis. MQ: CTAP_3 Contrast: IV: 100 ml of Omnipaque 350 Oral: 500 ml of Omni 240 10-25ml diluted with water CT Radiation dose: Integrated Dose-length product (DLP) for this visit = 1161 mGy*cm. CT Dose Reduction Employed: Automated exposure control (AEC) COMPARISON: CT abdomen/pelvis 11/06/2023, 08/31/2023 RESULT: Liver: Normal liver morphology. No suspicious hepatic mass. Biliary: No bile duct dilation. Gallbladder is absent. Spleen: No mass. No splenomegaly. Pancreas: No mass or duct dilation. Adrenals: No mass. Kidneys: The kidneys enhance symmetrically. No suspicious renal mass. No collecting system dilatation. GI tract: Interval takedown of right lower quadrant ileostomy. The bowel is normal in caliber and without evidence of wall thickening or obstruction. Operative changes reflect low anterior resection with widely patent coloanal anastomosis. A right lower quadrant enteroenteric anastomosis is widely patent. Lymph nodes: No abdominal or pelvic lymphadenopathy. Mesentery/Peritoneum: No ascites or mass. Retroperitoneum: No mass. Vasculature: - Abdominal aorta and iliac arteries: No aneurysm. - Celiac and SMA: Patent without stenosis. - Portal venous system (SMV, splenic vein, portal vein and branches): Patent. - Hepatic veins: Patent. Pelvis: No mass, ascites or fluid collection. The rectum, uterus, and adnexa are unremarkable. Unchanged mild bladder wall thickening, likely secondary to treatment-related change. Bones/Soft Tissues: Degenerative change involves the hips and lumbar spine. There are bilateral L5 pars defects with grade 1 anterolisthesis of L5 on S1. Linear scarring within the right lower quadrant anterolateral abdominal wall is compatible prior ostomy site. Lower thorax: A chest CT performed will be reported separately. Localizer images: No additional findings. IMPRESSION IMPRESSION: 1. No recurrent or metastatic disease within the abdomen/pelvis. 2. Since 11/06/2023, interval takedown of right lower quadrantileostomy. 3. Please refer to concurrently acquired and separately reported chest CT for findings related to the thorax. Transcribe Date/Time: Feb 11 2025 10:59A Dictated by: JANY GONZALEZ MD This examination was interpreted and the report reviewed and electronically signed by: JANY GONZALEZ MD on Feb 11 2025 11:25AM EST Thank you for allowing us to participate in the care of your patient. Should there be any questions regarding this interpretation, please call [phone]. If you are unable to reach us at the number above, please feel free to contact [facility] at [phone]. us Tapan Corona MD CT-[facility] Final Result * (ABNORMAL) COMPLETE BLOOD COUNT AND DIFFERENTIAL (02/10/2025 12:42 PM EDT) WBC 6.05 3.70 - 11.00 k/uL 02/10/2025 12:56 PM EDT [facility] RBC 3.83(L) 3.90 - 5.20 m/uL 02/10/2025 12:56 PM EDT [facility] Hemoglobin 11.1(L) 11.5 - 15.5 g/dL 02/10/2025 12:56 PM EDT [facility] Hematocrit 34.2(L) 36.0 - 46.0 % 02/10/2025 12:56 PM EDT [facility] MCV 89.3 80.0 - 100.0 fL 02/10/2025 12:56 PM EDT [facility] MCH 29.0 26.0 - 34.0 pg 02/10/2025 12:56 PM EDT [facility] MCHC 32.5 30.5 - 36.0 g/dL 02/10/2025 12:56 PM EDT [facility] RDW-CV 13.5 11.5 - 15.0 % 02/10/2025 12:56 PM EDT [facility] Platelet Count 266 150 - 400 k/uL 02/10/2025 12:56 PM EDT [facility] MPV 8.5(L) 9.0 - 12.7 fL 02/10/2025 12:56 PM EDT [facility] Neutrophils % 61.0 % 02/10/2025 12:56 PM EDT [facility] Abs Neut 3.69 1.45 - 7.50 k/uL 02/10/2025 12:56 PM EDT [facility] Lymphocytes % 25.1 % 02/10/2025 12:56 PM EDT [facility] Abs Lymph 1.52 1.00 - 4.00 k/uL 02/10/2025 12:56 PM EDT [facility] Monocytes % 8.4 % 02/10/2025 12:56 PM EDT [facility] Abs [place] 0.51 <0.87 k/uL 02/10/2025 12:56 PM EDT [facility] Eosinophils % 4.1 % 02/10/2025 12:56 PM EDT [facility] Abs Eosin 0.25 <0.46 k/uL 02/10/2025 12:56 PM EDT [facility] Basophils % 0.7 % 02/10/2025 12:56 PM EDT [facility] Abs Baso 0.04 <0.11 k/uL 02/10/2025 12:56 PM EDT [facility] Immature Granulocytes % 0.7 % 02/10/2025 12:56 PM EDT [facility] Abs Immature Gran 0.04 <0.10 k/uL 02/10/2025 12:56 PM EDT [facility] NRBC 0.0 /100 WBC 02/10/2025 12:56 PM EDT [facility] Absolute nRBC <0.01 <0.01 k/uL 02/10/2025 12:56 PM EDT [facility] Diff Type Auto 02/10/2025 12:56 PM EDT [facility] Blood BLOOD SPECIMEN / Unknown Venipuncture / Unknown 02/10/2025 12:42 PM EDT 02/10/2025 12:52 PM EDT us Tapan Corona MD LABORATORY Final Result [facility] [address] [place] [address] * (ABNORMAL) COMPREHENSIVE METABOLIC PANEL (02/10/2025 12:42 PM EDT) Protein, Total 6.6 6.3 - 8.0 g/dL 02/10/2025 1:17 PM EDT [facility] Albumin 4.0 3.9 - 4.9 g/dL 02/10/2025 1:17 PM EDT [facility] Calcium, Total 9.0 8.5 - 10.2 mg/dL 02/10/2025 1:17 PM EDT [facility] [facility] Bilirubin, Total 0.3 0.2 - 1.3 mg/dL 02/10/2025 1:17 PM EDT [facility] Alkaline Phosphatase 103 34 - 123 U/L 02/10/2025 1:17 PM EDT [facility] AST 16 13 - 35 U/L 02/10/2025 1:17 PM EDT [facility] ALT 28 7 - 38 U/L 02/10/2025 1:17 PM EDT [facility] Glucose 103(H) 74 - 99 mg/dL 02/10/2025 1:17 PM EDT [facility] Comment: The [place] Diabetes Association (ADA) provides guidance for cutoff [...] Standards of Medical Care in Diabetes 2016, [place] [employer]. Diabetes Care. 2016.39(Suppl 1). BUN 14 7 - 21 mg/dL 02/10/2025 1:17 PM EDT [facility] Creatinine 0.67 0.58 - 0.96 mg/dL 02/10/2025 1:17 PM T [facility] Sodium 141 136 - 144 mmol/L 02/10/2025 1:17 PM EDT [facility] Potassium 4.1 3.7 - 5.1 mmol/L 02/10/2025 1:17 PM EDT [facility] Chloride 107 98 - 107 mmol/L 02/10/2025 1:17 PM T [facility] CO2 25 22 - 30 mmol/L 02/10/2025 1:17 PM EDT [facility] Anion Gap 9 8 - 15 mmol/L 02/10/2025 1:17 PM EDT [facility] Estimated Glomerular Filtration Rate 94 >=60 mL/min/1. 73m 02/10/2025 1:17 PM T [facility] Comment:Estimated Glomerular Filtration Rate (eGFR) is calculated using the 2020 CKD-EPI creatinine equation. This equation utilizes serum creatinine, sex, and age as parameters. The creatinine assay has traceable calibration to isotope dilution- mass spectrometry. Refer to KDIGO guidelines for clinical interpretation. In patients with unstable renal function, e.g. those with acute kidney injury, the eGFR may not accurately reflect actual GFR. Blood BLOOD SPECIMEN / Unknown Venipuncture / Unknown 02/10/2025 12:42 PM EDT 02/10/2025 12:52 PM EDT us Tapan Corona MD LABORATORY Final Result [facility] [address] [place] [address] * (ABNORMAL) CARCINOEMBRYONIC ANTIGEN (02/10/2025 12:42 PM EDT) CEA 4.1(H) <=2.9 ng/mL 02/11/2025 9:59 AM EDT [facility] Comment: Carcinoembryonic antigen test is used as an aid in monitoring response to treatment or recurrence in patients with established colorectal, breast, lung, prostatic, pancreatic, and ovarian carcinomas. Clinical correlation is required. The Carcinoembryonic antigen test was performed using the Enliken Unicel DXI paramagnetic particle chemiluminescent immunoassay method. Results obtained with different assay methods or kits cannot be used interchangeably. 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
--- OUTSIDE RECORDS SUMMARY | 2025-02-12 09:12 | XMS_ITS | Clinical Summary ---
Author Organization [employer] s [facility] Address [id number] [address] [place] [address] Care Team Providers Care Juke Box Servicer Name Role Phone Leon Colin Primary Care Provider [phone] Allergies No known active allergies Medications omeprazole (PriLOSEC) 40 mg capsule Take 1 capsule (40 mg total) by mouth in the morning. 11/11/2022 Active oxybutynin XL (DITROPAN XL) 15 mg 24 hr tablet Take 1 tablet (15 mg total) by mouth in the morning. 11/11/2022 Active amLODIPine-benaz epril (LOTREL) 5-10 mg per capsule Take 1 capsule by mouth in the morning. 11/11/2022 Active meloxicam (MOBIC) 15 mg tablet Take 1 tablet (15 mg total) by mouth in the morning. 11/11/2022 Active calcium carbonate-vitami n D3 600 mg-10 mcg (400 unit) capsule Take 2 tablets by mouth in the morning. Active vortioxetine (TRINTELLIX) 5 mg tablet Take 2 tablets (10 mg total) by mouth in the morning. Active magnesium 250 mg tablet Take 2 tablets (500 mg total) by mouth in the morning. Active potassium citrate 99 mg capsule Take 1 tablet by mouth in the morning. Active Lactobacillus acidophilus (PROBIOTIC ORAL) Take 220 mg by mouth in the morning. Active Active Problems Problem Noted Date Diagnosed Date Primary osteoarthritis of right knee 12/14/2022 Social History Tobacco Use Types Packs/Day Years Used Date Smoking Tobacco: Never Smokeless Tobacco: Never Tobacco Cessation:Counseling Given: Not Answered Alcohol Use Standard Drinks/Week Comments Yes 0 (1 standard drink = 0.6 oz pur e alcohol) social Childcare Answer Date Recorded Childcare Unknown 12/19/2018 Employment Answer Date Recorded Employment Unknown 12/19/2018 Purpose - Life Answer Date Recorded Purpose and direction in life Unknown Comments No Sex and Gender Information Value Date Recorded Sex Assigned at Not on file Legal Sex Female 12:04 PM EDT Gender Identity Not on file Sexual Orientation Not on file Last Filed Vital Signs Vital Sign Reading Time Taken Comments Blood Pressure 110/72 12/15/2022 2:24 PM EDT Pulse 85 12/15/2022 2:24 PM EDT Temperature 36.8 C (98.3 F) 12/15/2022 2:24 PM EDT Respiratory Rate 16 12/15/2022 2:24 PM EDT Oxygen Saturation 99% 12/15/2022 2:24 PM EDT Inhaled Oxygen Concentration - - Weight 67.7 kg (149 lb 4.8 oz) 12/15/2022 12:48 AM EDT Height 165.1 cm (5' 5 ) 12/14/2022 6:22 AM EDT Body Mass Index 24.84 12/14/2022 6:22 AM EDT Plan of Treatment Health Maintenance Due Date Last Done Comments Depression Screening 1965 Tobacco Screening 1965 DTaP,Tdap and Td Vaccines (1 - Tdap) 1972 Fall Risk Screening 2018 Adult BMI Screening 12/16/2023 12/15/2022 COVID-19 Vaccine (3 - 2023-2 5 season) 2024 09/30/2020, 09/03/2020 Influenza Vaccine 03/10/2025 05/07/2019, , 04/09/2017, Additional history exists Zoster (Shingles) Vaccine Completed 08/08/2021, Goals Goal Patient Goal Type Associated Problems Recent Progress Patient-Stated? Author Home General Yes Maggy Laguerre LSW Note: Evaluation of progress towards goal: Safe dc transition home with family support and [facility] 360 Medical Devices Implanted Type Area Gum Rolling Machine Operator Device Identifier Shelf Expiration Date Model / Serial / Lot Cement Bio 40gm Rpl [id number] - [facility] - [id number] Implanted:Qt y: 2 on 12/14/2022 by Zeb Valle DO at [facility] Cement Right: Knee [employer] 04/08/2025 [id number] / NA / [id number] Surface Artc 11mm Persona Mdl Cngr 6-7 Cd Kn Rt Vivacit-E - Sna - [id number] Implanted:Qt y: 1 on 12/14/2022 by Zeb Valle DO at [facility] Orthopedic Implant Right: Knee [employer] 12/07/2024 [id number] / NA / [id number] Component Fem 6 Std Kn Rt Crcte Rtn Cmnt Persona Cocr - Sna - [id number] Implanted:Qt y: 1 on 12/14/2022 by Zeb Valle DO at [facility] Orthopedic Implant Right: Knee [employer] 09/24/2032 [id number] / NA / [id number] Baseplate Tib 5d D Kn Rt Cmnt Stm Persona Tiv Strl - Sna - [id number] Implanted:Qt y: 1 on 12/14/2022 by Zeb Valle DO at [facility] Plate Right: Knee [employer] 11/17/2031 [id number] / NA / [id number] Explanted Type Area Gum Rolling Machine Operator Device Identifier Shelf Expiration Date Model / Serial / Lot Screw Gd 48mm Qd-Spr Hex Hd Mis Strl - Sna - [id number] Explanted:Qty: 2 on 12/14/2022 by Zeb Valle DO at [facility] Screw Right: Knee [employer] 05/20/[id number] / NA / [id number] Guide 27mm Hx Hd Scr Srg - Sna - [id number] Explanted:Qty: 2 on 12/14/2022 by Zeb Valle DO at [facility] Screw Right: Knee [employer] 12/01/[id number] / NA / [id number] Screw Bn 35mm 6.5mm St Hip Actb Trlg Strl Rpl [id number] - Sna - [id number] Explanted:Qty: 1 on 12/14/2022 by Zeb Valle DO at [facility] Screw Right: Knee [employer] 09/10/2032 [id number] / NA / [id number] Screw Bn 35mm 6.5mm St Hip Actb Trlg Strl Rpl [id number] - Sna - [id number] Explanted:Qty: 1 on 12/14/2022 by Zeb Valle DO at [facility] Screw Right: Knee [employer] 08/27/2032 [id number] / NA / [id number] Insurance MEDICARE [employer] Care Teams Juke Box Servicer Relationship Specialty Start Date End Date Leon Colin DO [address] [place] [phone] PCP - General Family Medicine 11/22/22
--- OUTSIDE RECORDS SUMMARY | 2025-02-12 09:12 | XMS_ITS | Encounter Summary ---
Author Organization [facility] Address [address] [place] [id number] Care Team Providers Care Ham Pumper Name Role Phone Leon Colin Primary Care Provider [phone] Colleen Solorio RN Unavailable [phone] Tapan Corona MD Unavailable [phone] Naheed Elias PA-C Unavailable [phone] Maryuri Rodriguez Unavailable Unavailable Source Comments In the event this information is protected by the Federal Confidentiality of Alcohol and Drug AbusePatient Records regulations: The Federal rules restrict any use of the information to criminally investigate or prosecute any alcohol or drug abuse patient.[facility] Encounter Details Date Type Department Care Team (Latest Contact Info) Description 04/06/2023 H&P External-NonCCF Provider, [place] Andrade Do not enter address information under generic External Provider. Social History Tobacco Use Types Packs/Day Years Used Date Smoking Tobacco: Never Passive Smoke Exposure: Past Smokeless Tobacco: Never Alcohol Use Standard Drinks/Week Comments Yes 0 (1 standard drink = 0.6 oz pur e alcohol) 1 drink weekly if that PHQ-2 Answer Date Recorded PHQ-2 score 0 03/21/2023 Comments No Sex and Gender Information Value Date Recorded Sex Assigned at Not on file Legal Sex Female 9:50 AM EST Gender Identity Not on file Sexual Orientation Not on file documented as of this encounter Plan of Treatment Upcoming Encounters Date Type Department Care Team (Late st Contact Info) Description 02/19/2025 1:00 PM EDT OT/PT/Speech Visit Physical Therapy [address] [place] [address] Therese Anthony, PT [address] [place] [address] 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] 02/20/2025 1:20 PM EDT Office Visit Colorectal Surgery [address] [place] [address] [place] [address] [place] [address] Est Pt: 1 yr f/up, robotic LAR, DLI, surgery 08/25/23 02/20/2025 2:00 PM EDT Visit (SP) Office Hematology [address] [place] [address] Tapan Corona MD [address] [place] [address] [place] 03/12/2025 2:45 PM EDT OT/PT/Speech Visit Physical Therapy [address] [place] [address] Therese Anthony, PT [address] [place], [place] [id number] 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] 04/02/2025 1:00 PM EDT OT/PT/Speech Visit Physical Therapy [address] [place] [address] Therese Anthony, PT [address] [place] [address] 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] 04/16/2025 9:45 AM EDT Office Visit Radiation Oncology [address] [place] [address] Del Aguilar MD [address] [place] [address] Return in about 6 months 04/23/2025 1:00 PM EDT OT/PT/Speech Visit Physical Therapy [address] [facility] [place] [address] Therese Anthony, PT [address] [place] [address] 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] documented as of this encounter Visit Diagnoses Not on filedocumented in this encounter Care Teams Ham Pumper Relationship Specialty Start Date End Date Leon Colin [address] [place] [phone] PCP - General Family Medicine 03/16/23 Colleen Solorio RN [address] [place] [address] Specialty Drafting Instructor Hematology/Oncology 03/22/23 02/07/24 Tapan Corona MD [address] [place] [address] [place] [address] Physician Hematology/Oncology 03/22/23 Naheed Elias, PA-C [address] [place] [address] Physician Commercial Parts Professional Hematology/Oncology 03/22/23 Maryuri Rodriguez LSW Therapeutic Radiologist 07/21/23 documented as of this encounter
--- OUTSIDE RECORDS SUMMARY | 2025-02-12 09:12 | XMS_ITS | Clinical Summary ---
Author Organization [facility] Address [address] [place] [address] Phone Care Team Providers Care Pecan Cleaner Name Role Phone Leon Colin Primary Care Provider [phone] Allergies No known active allergies Medications amLODIPine-ger zepriL (Lotrel) 5-10 mg capsule Take 1 capsule by mouth once daily. 05/11/2023 Active meloxicam (Mobic) 15 mg tablet Take 1 tablet (15 mg) by mouth once daily. 05/10/2023 Active omeprazole (PriLOSEC) [address] capsule Take 1 capsule (40 mg) by mouth once daily. 05/11/2023 Active oxybutynin XL (Ditropan-XL) 15 mg 24 hr tablet Take 1 tablet (15 mg) by mouth once daily. 05/11/2023 Active aspirin 81 mg EC tablet Take 1 tablet (81 mg) by mouth once daily. Active calcium carbonate (CALCIUM 500 ORAL) Take 1 tablet by mouth once daily. Active omega 7-ogv-bcc-fish oil (Fish OiL) 1,000 mg (120 mg-180 mg) capsule Take 1 capsule (1,000 mg) by mouth once daily. Active magnesium, as gluconate, (Mag-G) 27 mg magnesium (500 mg) tablet Take 1 tablet (27 mg) by mouth once daily. Active potassium citrate 99 mg capsule Take 1 capsule by mouth once daily. Active vortioxetine (Trintellix) 10 mg tablet tablet Take 1 tablet (10 mg) by mouth once daily. Active Active Problems Problem Noted Date Diagnosed Date Other chest pain 07/25/2023 Colorectal cancer (Multi) 07/25/2023 BMI 24.0-24.9, adult 07/25/2023 History of atrial fibrillation 07/20/2023 Essential hypertension 07/20/2023 Resolved Problems Problem Noted Date Diagnosed Date Resolved Date Abnormal stress test 07/20/2023 024 Immunizations Immunization Administration Dates Next Due Influenza, injectable, quadrivalent 05/07/2019,1 Pneumococcal polysaccharide vaccine, 23-valent, age 2 years and older (PNEUMOVAX 23) 04/09/2014 Zoster vaccine, recombinant, adult (SHINGRIX) ,02/26/2021 Family History Medical History Relation Name Comments CABG Father COPD Father Lung cancer Mother Relation Name Status Comments Father Mother Social History Tobacco Use Types Packs/Day Years Used Date Smoking Tobacco: Never Smokeless Tobacco: Never Tobacco Cessation:Counseling Given: Not Answered Alcohol Use Standard Drinks/Week Comments Yes 0 (1 standard drink = 0.6 oz pur e alcohol) occasional Comments Unknown Sex and Gender Information Value Date Recorded Sex Assigned at Not on file Legal Sex Female 4:22 PM EST Gender Identity Not on file Sexual Orientation Not on file Last Filed Vital Signs Vital Sign Reading Time Taken Comments Blood Pressure 138/88 07/25/2023 12:42 PM EST Pulse 66 07/25/2023 12:42 PM EST Temperature - - Respiratory Rate - - Oxygen Saturation - - Inhaled Oxygen Concentration - - Weight 66.2 kg (146 lb) 07/25/2023 12:42 PM EST Height 165.1 cm (5' 5 ) 07/25/2023 12:42 PM EST Body Mass Index 24.3 07/25/2023 12:42 PM EST Plan of Treatment Health Maintenance Due Date Last Done Comments CT Colonography 1955 Colonoscopy 1955 FIT-DNA (Cologuard) 1955 FIT 1955 Lipid Panel 1955 Medicare Annual Wellness Visit (AWV) 1955 MMR Vaccines (1 of 1 - Standard series) 1954 Hepatitis C Screening 1971 DTaP/Tdap/Td Vaccines (1 - Tdap) 1975 Mammogram 1993 Pneumococcal Vaccine (2 of 2 - PCV) 04/09/2016 04/09/2015, 04/09/2014, 07/25/2013 COVID-19 Vaccine (3 - 2023-25 season) 2024 09/30/2020, 09/03/2020 Bone Density Scan 11/03/2024 11/03/2022 Influenza Vaccine (#1) 2025 9, 04/18/2017, 04/09/2017, Additional history exists Colorectal Cancer Screening 06/08/2028 Sigmoidoscopy 06/08/2028 06/08/2023 RSV High Risk: (Elderly (60+) or Population) (1 - 1-dose 75+ series) 2028 Zoster Vaccines Completed 08/08/2021, 02/08, 11/04/2013 HIB Vaccines Aged Out No longer eligi ble based on patient's age to complete this topic HPV Vaccines Aged Out No longer eligi ble based on patient's age to complete this topic Hepatitis A Vaccines Aged Out No long er eligible based on patient's age to complete this topic Hepatitis B Vaccines Aged Out No long er eligible based on patient's age to complete this topic IPV Vaccines Aged Out No longer eligi ble based on patient's age to complete this topic Meningococcal Vaccine Aged Out No sue dariana eligible based on patient's age to complete this topic Rotavirus Vaccines Aged Out No longer eligible based on patient's age to complete this topic Insurance MEDICARE PART A AND B [facility] MEDICARE SUPPLEMENT Care Teams Pecan Cleaner Relationship Specialty Start Date End Date Leon Colin DO PCP - General 10/05/22
--- OUTSIDE RECORDS SUMMARY | 2025-02-12 09:12 | XMS_ITS | Encounter Summary ---
Author Organization [facility] Address [address] [place] [address] Care Team Providers Care Referral Management Liaison Name Role Phone Leon Colin DO Primary Care Provider [phone] Encounter Details Date Type Department Care Team ([facility] st Contact Info) Description 06/26/2023 External Result Encounter [facility] Unsolicited Cristhian Vargas MD [address] [facility] [address] [place] [address] Social History Tobacco Use Types Packs/Day Years Used Date Smoking Tobacco: Never Smokeless Tobacco: Never Alcohol Use Standard Drinks/Week Comments Yes 0 (1 standard drink = 0.6 oz pure alcohol) 2-4 times/month. Coffee: 2-3 cups per day AUDIT-C Answer Date Recorded Q1: How often do you have a drink containing alc ohol? 2-4 times a month 06/17/2023 Q2: How many drinks containi ng alcohol do you have on a typical day when you are drinking? 1 or 2 06/17/2023 Q3: How often do you have si x or more drinks on one occasion? Never 06/17/2023 Comments Unknown Sex and Gender Information Value Date Recorded Sex Assigned at Female 12/07/2022 8:42 AM EDT Legal Sex Female 7:08 PM EDT Gender Identity Not on file Sexual Orientation Not on file COVID-19 Exposure Response Date Recorded In the last 10 days, have yo u been in contact with someone who was confirmed or suspected to have Coronavirus/COVID-19? No / Unsure 06/12/2023 3:45 PM EST documented as of this encounter Plan of Treatment Not on file documented as of this encounter Procedures Procedure Name Priority Date/Time Associated Diagnosis Comments XR CHEST 1 VIEW 06/26/2023 2:58 PM EST documented in this encounter Results * XR chest 1 view (06/26/2023 2:58 PM EST) Anatomical Region Laterality Modality Chest Radiographic Michaela ging 06/26/2023 2:58 PM EST Impressions 06/27/2023 11:39 AM EST [id number] PLACEMENT, DESCRIBED. NO ACUTE FINDINGS Impression dictated by: Princess Sanchez M.D.06/26/2023 3:02 PM Dictation Location: [place] [address] Transcribed By: [facility] 06/26/23 1502 Dictated By: Princess Sanchez MD 06/26/23 1458 Signed By: <Electronically signed by MD Princess Sanchez in OV> 06/26/23 1502 Narrative 06/27/2023 11:39 AM EST [facility] [address] [place] [address] XRay Report Signed Patient: Cristina Kelley MR#: [id number] 89 : 1955 Acct:[id number] Age/Sex: 67 / F ADM Date: 06/26/23 Loc: [place] Room: Type: [facility] Attending Dr: Cristhian Vargas MD Copies to: Cristhian Vargas MD Ordering Provider: Cristhian Vargas MD Date of Service: 06/26/23 XR/XR chest 1V portable: POST PORT PORTABLE AP ERECT CHEST 1440 hours CLINICAL HISTORY: Follow-up after Sjplzd-r-Yywf placement COMPARISON: 11/02/[address] 04/05/2023 There is a left subclavian Tiqwum-f-Uyxo catheter with tip overlying the distal superior vena cava. The heart is within normal limits. There is no vascular congestion. The lungs, as visualized, are clear. There is no effusion or pneumothorax. The bony structures are osteopenic. There is levoscoliotic curvature and endplate spurring. XR/XR chest 1V portable Procedure Note Radiology, RadiologistMD - 06/27/2023 [facility] [address] [place] [address] XRay Report Signed Patient: Cristina Kelley CMR#: [id number] [birth year] : 4Acct:[id number] Age/Sex: 67 / FADM Date: 06/26/23 Loc: [place] Room:Type: [facility] Attending Dr: Cristhian Vargas MD Copies to: Cristhian Vargas MD Ordering Provider: Cristhian Vargas MD Date of Service: 06/26/23 XR/XR chest 1V portable: POST PORT PORTABLE AP ERECT CHEST 1440 hours CLINICAL HISTORY: Follow-up after Oigllt-p-Yfiu placement COMPARISON: 11/02/[address] 04/05/2023 There is a left subclavian Usuroq-e-Dsnx catheter with tip overlying thedistal superior vena cava. The heart is within normal limits. There is no vascular congestion. Thelungs, as visualized, are clear. There is no effusion or pneumothorax. The bony structures areosteopenic. There is levoscoliotic curvature and endplate spurring. XR/XR chest 1V portable IMPRESSION: HRSOTP-B-[id number] PLACEMENT, DESCRIBED. NO ACUTE FINDINGS Impression dictated by: Princess Sanchez M.D.06/26/2023 3:02 PM Dictation Location: [place] [address] Transcribed By: [facility] 06/26/23 1502 Dictated By: Princess Sanchez MD 06/26/23 1458 Signed By: <Electronically signed by MD Princess Sanchez in OV> 06/26/23 1502 us Cristhian Crawley MD IMG XR PROCEDURES Final Resu lt documented in this encounter Visit Diagnoses Not on filedocumented in this encounter Care Teams Referral Management Liaison Relationship Specialty Start Date End Date Leon Colin DO PCP - General 12/13/22 documented as of this encounter
--- OUTSIDE RECORDS SUMMARY | 2025-02-12 09:12 | XMS_ITS | Encounter Summary ---
Author Organization [facility] Address [address] [place] [address] Care Team Providers Care Jewelry Finisher Name Role Phone Leon Colin Primary Care Provider [phone] Colleen Solorio RN Unavailable [phone] Tapan Coorna MD Unavailable [phone] Naheed Elias PA-C Unavailable [phone] Maryuri Rodriguez Unavailable Unavailable Source Comments In the event this information is protected by the Federal Confidentiality of Alcohol and Drug AbusePatient Records regulations: The Federal rules restrict any use of the information to criminally investigate or prosecute any alcohol or drug abuse patient.[facility] Encounter Details Date Type Department Care Team (Late st Contact Info) Description 07/19/2023 Patient Msg Gastroenterology [address] [place], [place] [id number] [place] [address] [place], [place] [id number] Sigmoidoscopy Prep Instructions Social History Tobacco Use Types Packs/Day Years Used Date Smoking Tobacco: Never Passive Smoke Exposure: Past Smokeless Tobacco: Never Alcohol Use Standard Drinks/Week Comments Yes 0 (1 standard drink = 0.6 oz pure alcohol) socially a couple times per month PHQ-2 Answer Date Recorded PHQ-2 score 0 06/14/2023 Comments No Sex and Gender Information Value Date Recorded Sex Assigned at Not on file Legal Sex Female 9:50 AM EST Gender Identity Not on file Sexual Orientation Not on file documented as of this encounter Plan of Treatment Upcoming Encounters Date Type Department Care Team (Late st Contact Info) Description 02/19/2025 1:00 PM EDT OT/PT/Speech Visit Physical Therapy [address] [place] [address] Therese Anthony, PT [address] [place] [address] 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] 02/20/2025 1:20 PM EDT Office Visit Colorectal Surgery [address] [place] [address] [place] [address] [place] [address] Est Pt: 1 yr f/up, robotic LAR, DLI, surgery 08/25/23 02/20/2025 2:00 PM EDT Visit (SP) Office Hematology [address] [place] [address] Tapan Corona MD [address] [place] [address] [place] 03/12/2025 2:45 PM EDT OT/PT/Speech Visit Physical Therapy [address] [place] [address] Therese Anthony, PT [address] [place] [address] 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] 04/02/2025 1:00 PM EDT OT/PT/Speech Visit Physical Therapy [address] [place] [address] Therese Anthony, PT [address] [place] [address] 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] 04/16/2025 9:45 AM EDT Office Visit Radiation Oncology [address] [place] [address] Del Aguilar MD [address] [place] [address] Return in about 6 months 04/23/2025 1:00 PM EDT OT/PT/Speech Visit Physical Therapy [address] [place] [address] Therese Anthony, PT [address] [place] [address] 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] documented as of this encounter Visit Diagnoses Not on filedocumented in this encounter Care Teams Jewelry Finisher Relationship Specialty Start Date End Date Leon Colin [address] [place] [phone] PCP - General Family Medicine 03/16/23 Colleen Solorio, RN [address] [place] [address] [place] [address] Specialty Burial Vault Deliverer And Installer Hematology/Oncology 03/22/23 02/07/24 Tapan Corona MD [address] [place] [address] [place] [address] Physician Hematology/Oncology 03/22/23 Naheed Elias, PA-C [address] [place] [address] [place] [address] Physician Windows And Doors Installer Hematology/Oncology 03/22/23 Maryuri Rodriguez LSW Rn Appeals 07/21/23 documented as of this encounter
--- OUTSIDE RECORDS SUMMARY | 2025-02-12 09:12 | XMS_ITS | Encounter Summary ---
Author Organization [facility] Address [facility] [place] [address] Care Team Providers Care Supervisor Bottle House Cleaners Name Role Phone Leon Colin Primary Care Provider [phone] Colleen Solorio RN Unavailable [phone] Tapan Corona MD Unavailable [phone] Naheed Elias PA-C Unavailable [phone] Maryuri Rodriguez Unavailable Unavailable Source Comments In the event this information is protected by the Federal Confidentiality of Alcohol and Drug AbusePatient Records regulations: The Federal rules restrict any use of the information to criminally investigate or prosecute any alcohol or drug abuse patient.[facility] Encounter Details Date Type Department Care Team (Late st Contact Info) Description 03/15/2023 GI Preprocedure Call [facility] Surgery [address] [place], [place] [phone] [place] [address] [place], [place] [phone] Social History Tobacco Use Types Packs/Day Years Used Date Smoking Tobacco: Never Passive Smoke Exposure: Past Smokeless Tobacco: Never Alcohol Use Standard Drinks/Week Comments Yes 0 (1 standard drink = 0.6 oz pur e alcohol) 1 drink weekly if that Comments No Sex and Gender Information Value Date Recorded Sex Assigned at Not on file Legal Sex Female 9:50 AM EST Gender Identity Not on file Sexual Orientation Not on file documented as of this encounter Plan of Treatment Upcoming Encounters Date Type Department Care Team (Late st Contact Info) Description 02/19/2025 1:00 PM EDT OT/PT/Speech Visit Physical Therapy [address] [place] [address] Therese Anthony PT [address] [place] [address] 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] 02/20/2025 1:20 PM EDT Office Visit Colorectal Surgery [address] [place] [address] [place] [address] [place] [address] Est Pt: 1 yr f/up, robotic LAR, DLI, surgery 08/25/23 02/20/2025 2:00 PM EDT Visit (SP) Office Hematology [address] [place] [address] Tapan Corona MD [address] [place] [address] [place] 03/12/2025 2:45 PM EDT OT/PT/Speech Visit Physical Therapy [address] [place] [address] Therese Anthony PT [address] [place], [place] [phone] 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] 04/02/2025 1:00 PM EDT OT/PT/Speech Visit Physical Therapy [address] [place] [address] Therese Anthony, PT [address] [place] [address] 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] 04/16/2025 9:45 AM EDT Office Visit Radiation Oncology [address] [address] Del Aguilar MD [address] [place] [address] [place] [address] Return in about 6 months 04/23/2025 1:00 PM EDT OT/PT/Speech Visit Physical Therapy [address] [place], [place] [id number] Therese Anthony, PT [address] [place], [place] [address] 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] documented as of this encounter Visit Diagnoses Not on filedocumented in this encounter Care Teams Supervisor Bottle House Cleaners Relationship Specialty Start Date End Date Leon Colin [address] [place] [phone] PCP - General Family Medicine 03/16/23 Colleen Solorio, RN [address] [place] [address] [place] [address] Specialty Deputy Director Of Nursing Hematology/Oncology 03/22/23 02/07/24 Tapan Corona MD [address] [place] [address] [place] [address] Physician Hematology/Oncology 03/22/23 Naheed Elias PADesireeC [address] [place] [address] [place] [address] Physician Grinder Set Up Operator Thread Tool Hematology/Oncology 03/22/23 Maryuri Rodriguez LSW Wellness Coordinator 07/21/23 documented as of this encounter
--- OUTSIDE RECORDS SUMMARY | 2025-02-12 09:12 | XMS_ITS | Encounter Summary ---
Author Organization [facility] Address [address] [place] [address] Care Team Providers Care Access Control Specialist Name Role Phone Leon Colin DO Primary Care Provider [phone] Encounter Details Date Type Department Care Team (Late st Contact Info) Description 02/28/2024 Orders Only [facility]ON[facility] Christie OBGYN [address] [facility] [phone] Elba Griffith MA [address] [facility] [place] [address] Social History Tobacco Use Types Packs/Day Years [...] drinks on one occasion? Never 06/17/2023 Comments No Sex and Gender Information Value Date Recorded Sex Assigned at Female 12/07/2022 8:42 AM EDT Legal Sex Female 7:08 PM EDT Gender Identity Not on file Sexual Orientation Not on file documented as of this encounter Plan of Treatment Not on file documented as of this encounter Procedures Procedure Name Priority Date/Time Associated Diagnosis Comments PAP SMEAR Routine 02/21/2024 12:00 AM EDT documented in this encounter Results * Pap Smear (02/21/2024 12:00 AM EDT) Swab Cervical swab / Unknown us Cathleen [facility] CYTOLOGY ORDERABLES Final Re sult EXTERNAL LAB documented in this encounter Visit Diagnoses Not on filedocumented in this encounter Care Teams Access Control Specialist Relationship Specialty Start Date End Date Leon Colin DO PCP - General 12/13/22 documented as of this encounter
--- OUTSIDE RECORDS SUMMARY | 2025-02-12 09:12 | XMS_ITS | Encounter Summary ---
Author Organization [facility] Address [address] [place] [address] Care Team Providers Care Surgery Tech Name Role Phone Leon Colin Primary Care Provider [phone] Colleen Solorio RN Unavailable [phone] Tapan Corona MD Unavailable [phone] Naheed Elias PA-C Unavailable [phone] Maryuri Rodriguez Unavailable Unavailable Source Comments In the event this information is protected by the Federal Confidentiality of Alcohol and Drug AbusePatient Records regulations: The Federal rules restrict any use of the information to criminally investigate or prosecute any alcohol or drug abuse patient.[facility] Encounter Details Date Type Department Care Team (Late st Contact Info) Description 04/06/2023 Patient [facility] Radiology Procedure [address] [place] [address] Provider, Cctravis You are scheduled for a Port Placement, On 04/11/2023. 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] 02/20/2025 1:20 PM EDT Office Visit Colorectal Surgery [address] [place] [address] [place] [address] [place] [address] Est Pt: 1 yr f/up, robotic LAR, DLI, surgery 08/25/23 02/20/2025 2:00 PM EDT Visit (SP) Office Hematology [address] [place] [address] Tapan Corona MD [address] [place] [address] RECTAL [place] 03/12/2025 2:45 PM EDT OT/PT/Speech Visit Physical Therapy [address] [place] [address] Therese Anthony PT [address] [place] [address] 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 [address] Del Aguilar MD 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 [address] Specialty Supervisor Salvage Hematology/Oncology 03/22/23 02/07/24 Tapan Coorna MD [address] [place] [address] [place] [address] Physician Hematology/Oncology 03/22/23 Naheed Elias, PA-C [address] [place] [address] [place] [address] Physician Cloth Finishing Range Operator Chief Hematology/Oncology 03/22/23 Maryuri Rodriguez LSW Label Folder 07/21/23 documented as of this encounter
--- OUTSIDE RECORDS SUMMARY | 2025-02-12 09:12 | XMS_ITS | Encounter Summary ---
Author Organization [facility] Address [address] [place] [address] Care Team Providers Care Elementary [employer] Teacher Name Role Phone Charles Bazzi Primary Care Provider [phone] Encounter Details Date Type Department Care Team (Late st Contact Info) Description 04/23/2024 Clinisync Result Encounter [facility] External Department Unsolicited Jairon Pisano DO [address] [facility] [address] [place], [place] [phone] Social History Tobacco Use Types Packs/Day Years [...] Procedure Name Priority Date/Time Associated Diagnosis Comments MM TOMOSYNTHESIS SCREENING BI 04/23/2024 1:53 PM EDT documented in this encounter Results * MM TOMOSYNTHESIS SCREENING BI (04/23/2024 1:53 PM EDT) Anatomical Region Laterality Modality Other 04/23/2024 1:53 PM EDT Narrative 04/23/2024 1:54 PM EDT [address] [address] Mammography Report Signed Patient: CRISTINA GILL MR#: [id number] : 1955 Acct:[id number] Age/Sex: 68 / F ADM Date: 04/23/24 Loc: MAMMO Attending Dr: Jairon Pisano D.O. Ordering Physician: Jairon Pisano D.O. Results: Date of Service: 04/23/24 Follow Up: Procedure(s): MM tomosynthesis screening BI Accession Number(s): [id number] cc: Jairon Pisano D.O.; CHARLES BAZZI Patient Name: CRISTINA GILL MR#: [id number] : 1955 Exam Date: 04/23/2024 Ordering Doctor: DR Jairon Pisano . RADIOLOGY REPORT PROCEDURE: MM TOMOSYNTHESIS SCREENING BI COMPARISON: MG MAMM SCREEN JAYA W CAD, 11/25/2016. MG MAMM SCREEN JAYA W CAD, 05/20/2022. INDICATIONS: Screening for malignant neoplasm Calculator Name NCI Breast Cancer Risk Assessment Tool 5 Year Breast Cancer Risk 1.50% Lifetime Breast Cancer Risk 4.50% Personal Breast Cancer No Personal Ovarian Cancer No Treatments None Family Cancers None LOCATION: [facility] BREAST COMPOSITION: There are scattered areas of fibroglandular density. FINDINGS: DIAGNOSTIC CATEGORY 2--BENIGN FINDING. NO CHANGE FROM COMPARISON. Scattered benign-appearing calcifications are present. Scattered benign-appearing lymph nodes are present. RIGHT BREAST: No significant suspicious finding. LEFT BREAST: No significant suspicious finding. Focal asymmetry upper outer quadrant RECOMMENDATIONS: ROUTINE MAMMOGRAM AND CLINICAL EVALUATION IN 12 MONTHS. PLEASE NOTE: A NORMAL MAMMOGRAM DOES NOT EXCLUDE THE POSSIBILITY OF BREAST CANCER. A CLINICALLY SUSPICIOUS PALPABLE LUMP SHOULD BE BIOPSIED. Dictated by: Kennedy Padilla MD on 04/23/2024 at 13:50 Approved by: Kennedy Padilla MD on 04/23/2024 at 13:52 Dictated By: Kennedy Padilla M.D. Signed By: 04/23/24 1354 DD/ 1353 TD/TT: Area Development Consultant: Procedure Note Radiology, Radiologist, - 04/23/2024 [place] [address] Mammography Report Signed Patient: CRISTINA GILL CMR#: [id number] : 1955cct:[id number] Age/Sex: 68 / FADM Date: 04/23/24 Loc: MAMMO Attending Dr: Jairon Pisano D.O. Ordering Physician: Jairon Pisano D.O.Results: Date of Service: 04/23/24Follow Up: Procedure(s): MM tomosynthesis screening BI Accession Number(s): [id number] cc: Jairon Pisano D.O.; CHARLES BAZZI Patient Name: CRISTINA GILL MR#: [id number] : 1955 Exam Date: 04/23/2024 Ordering Doctor: DR Jairon Pisano . RADIOLOGY REPORT PROCEDURE: MM TOMOSYNTHESIS SCREENING BI COMPARISON: MG MAMM SCREEN JAYA W CAD, 11/25/2016. MG MAMM SCREEN JAYA W CAD, 05/20/2022. INDICATIONS: Screening for malignant neoplasm Calculator Name NCI Breast Cancer Risk Assessment Tool 5 Year Breast Cancer Risk 1.50% Lifetime Breast Cancer Risk 4.50% Personal Breast Cancer No Personal Ovarian Cancer No Treatments None Family Cancers None LOCATION: [facility] BREAST COMPOSITION: There are scattered areas of fibroglandulardensity. FINDINGS: DIAGNOSTIC CATEGORY 2--BENIGN FINDING. NO CHANGE FROM COMPARISON. Scattered benign-appearing calcifications are present. Scattered benign-appearing lymph nodes are present. RIGHT BREAST: No significant suspicious finding. LEFT BREAST: No significant suspicious finding. Focal asymmetry upperouter quadrant RECOMMENDATIONS: ROUTINE MAMMOGRAM AND CLINICAL EVALUATION IN 12 MONTHS. PLEASE NOTE: A NORMAL MAMMOGRAM DOES NOT EXCLUDE THE POSSIBILITY OFBREAST CANCER. A CLINICALLY SUSPICIOUS PALPABLE LUMP SHOULD BE BIOPSIED. Dictated by: Kennedy Padilla MD on 04/23/2024 at 13:50 Approved by: Kennedy Padilla MD on 04/23/2024 at 13:52 Dictated By: Kennedy Padilla M.D. Signed By:04/23/24 1354 DD/ 1353 TD/TT: Area Development Consultant: us Jairon Pisano DO [facility] Final Result documented in this encounter Visit Diagnoses Not on filedocumented in this encounter Care Teams Elementary [employer] Teacher Relationship Specialty Start Date End Date Charles Bazzi DO PCP - General 12/13/22 documented as of this encounter
--- OUTSIDE RECORDS SUMMARY | 2025-02-12 09:12 | XMS_ITS | Clinical Summary ---
Author Organization [facility] Healthcare Address [address] [place] [address] Care Team Providers Care Food Service Worker Name Role Phone Charles Bazzi Raphael HARLEY Primary Care Provider [phone] Allergies No known active allergies Medications oxybutynin XL (Ditropan-XL) 15 MG 24 hr tablet Take 15 mg by mouth in the morning. 3 Active ondansetron ODT (Zofran-ODT) 8 MG disintegrating tablet DISSOLVE ONE TABLET ON THE TONGUE EVERY 8 HOURS NEEDED FOR NAUSEA 3 Active omeprazole (PriLOSEC) [address] capsule Take 40 mg by mouth in the morning. 3 Active meloxicam (Mobic) 15 MG tablet Take 15 mg by mouth in the morning. Active aspirin 81 MG EC tablet Take 81 mg by mouth in the morning. Active Probiotic Product (Digestive Advantage) capsule 4 Active loperamide (Imodium) 2 MG capsule 4 Active ibuprofen 400 MG tablet 4 Active ALPRAZolam (Xanax) 0.25 MG tablet TAKE 1 TABLET BY MOUTH TWICE DAILY NEEDED FOR 30 DAYS 4 Active Vortioxetine HBr (Trintellix) 5 MG tablet Take 5 mg by mouth Daily Active Athens-3 Fatty Acids (Fish Oil) 1200 MG capsule delayed-release Take 1,200 mg by mouth Daily Active Hospital, Clinic, or Other Facility Administered Medication Ordered Dose Route Frequency Start Date End Date Status denosumab (Prolia) injection 60 mgIndications:Osteopenia, unspecified location,Osteoarthritis, unspecified osteoarthritis type, unspecified site 60 mg SC Once 12/07/2022 Ac tive denosumab (Prolia) injection 60 mgIndications:Calcium increased serum 60 mg SC Once 12/07/2022 Active Active Problems Problem Noted Date Diagnosed Date 2018 novel coronavirus-infected pneumonia (NCIP) 01/12/2024 Acute UTI 01/12/2024 Arthritis 01/12/2024 Bilateral primary osteoarthritis of knee 024 Abdominal pain 01/12/2024 Complete obstruction of small intestine 01/12/20 Diverticulosis 01/12/2024 Hyperglycemia 01/12/2024 Vomiting 01/12/2024 Other acute postprocedural pain 01/12/2024 Ileostomy status 01/12/2024 Partial small bowel obstruction 11/06/2023 Ileostomy bag changed 08/31/2023 Ileostomy present 08/26/2023 Atrial fibrillation 08/09/2023 Overview (01/12/2024): Last Assessment & Plan: Assessment: paroxysmal, one instance. chemo induced. No thinner. Has been on aspirin preventatively. RRR today, no murmur Per cardiology ,Dr. Canales: After receiving chemotherapy the patient admitted to the hospital for evaluation for chest pain CTA of the chest was negative. Her echocardiogram was normal referred for a Lexiscan myocardial fusion study which done at the [facility] and was able to retrieve the result and it was normal and I have reviewed that with the patient. Hyperlipidemia 08/09/2023 Overview (01/12/2024): Last Assessment & Plan: Assessment: diet controlled Hemorrhoids 08/09/2023 GERD (gastroesophageal reflux disease) Overview (01/12/2024): Last Assessment & Plan: Assessment: Managed and stable with current medication. Denies difficulty swallowing or any bleeding. Mixed anxiety depressive disorder 08/09/2023 Overview (01/12/2024): Last Assessment & Plan: Assessment: stable with current medication regimen BMI 24.0-24.9, adult 07/25/2023 Chest pain 07/25/2023 History of atrial fibrillation 07/20/2023 Iron deficiency anemia, unspecified 07/06/2023 Overview (01/12/2024): Last Assessment & Plan: Assessment: Stable. Denies bleeding. States chemo induced. Hemoglobin (g/dL) Date Value 08/11/2023 12.5 07/13/2023 9.4 07/05/2023 9.9 Left carpal tunnel syndrome 06/19/2023 Stress incontinence 06/19/2023 Rectal cancer 06/14/2023 Senile osteoporosis 01/23/2023 Fibrocystic breast changes 01/23/2023 Mixed incontinence 01/23/2023 Vitamin D deficiency 01/23/2023 Primary osteoarthritis of right knee 12/14/2022 Essential hypertension 04/25/2017 Overview (01/12/2024): Last Assessment & Plan: Assessment: stable and compliant with current medications Last 5 Encounter BP Readings: Date: BP: 08/11/2023 105/75 08/07/2023 104/62 07/27/2023 104/68 07/27/2023 145/68 07/21/2023 122/66 Personal history of malignant melanoma of skin 1 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 Immunizations Immunization Administration Dates Next Due Influenza, Split (incl. iesha fied surface antigen) 07/13/2013 Influenza, injectable, quadrivalent 05/07/2019,1 Influenza, seasonal, injectable 04/09/2017 Influenza, seasonal, injecta ble, preservative free 04/09/2014 Pneumococcal Polysaccharide PPSV23 04/09/2015,,07/25/2013 Zoster, Recombinant 08/08/2021,02/26/2021 Zoster, live 11/04/2013 Family History Medical History Relation Name Comments Heart disease Father Hypertension Father Hypertension Mother Lung cancer Mother Relation Name Status Comments [...] Sign Reading Time Taken Comments Blood Pressure 120/70 02/21/2024 1:21 PM EDT Pulse - - Temperature - - Respiratory Rate - - Oxygen Saturation - - Inhaled Oxygen Concentration - - Weight 67.3 kg (148 lb 6.4 oz) 02/21/2024 1:21 P M EDT Height 165.1 cm (5' 5 ) 01/12/2024 10:33 AM EDT Body Mass Index 24.7 01/12/2024 10:33 AM EDT Plan of Treatment Health Maintenance Due Date Last Done Comments CT Colonography 1955 Colonoscopy 1955 FIT-DNA 1955 FIT 1955 FOBT 1955 Pneumococcal Vaccine: 65+ Ye ars (2 of 2 - PCV) 04/09/2016 04/09/2015, 04/09/2014, 07/25/2013 Influenza Vaccine (#1) 2025 9, 04/18/2017, 04/09/2017, Additional history exists Mammogram 04/23/2025 04/23/2024, 09/21/2018 Colorectal Cancer Screening 07/27/2028 Sigmoidoscopy 07/27/2028 07/27/2023, 11/, 03/16/2023 Procedures Procedure Name Priority Date/Time Associated Diagnosis Comments MM TOMOSYNTHESIS SCREENING BI 04/23/2024 1:53 PM EDT from Last 3 Months or Most Recently Relevant to Health Maintenance Results * MM TOMOSYNTHESIS SCREENING BI (04/23/2024 1:53 PM EDT) Anatomical Region Laterality Modality Other 04/23/2024 1:53 PM EDT Narrative 04/23/2024 1:54 [place] [address] Mammography Report Signed Patient: CRISTINA GILL MR#: [id number] : 1955 Acct:[id number] Age/Sex: 68 / F ADM Date: 04/23/24 Loc: MAMMO Attending Dr: Jairon Pisano D.O. Ordering Physician: Jairon Pisano D.O. Results: Date of Service: 04/23/24 Follow Up: Procedure(s): MM tomosynthesis screening BI Accession Number(s): [id number] cc: Jairon Pisano D.O.; CHARLES BAZZI Patient Name: CRISTINA GILL MR#: [id number] : 1955 Exam Date: 04/23/2024 Ordering Doctor: [...] Treatments None Family Cancers None LOCATION: [facility] BREAST COMPOSITION: There are scattered areas of [...] Signed By: 04/23/24 1354 DD/ 1353 TD/TT: Customer Experience Manager: Procedure Note Radiology, Radiologist, MD - 04/23/2024 [place] [address] Mammography Report Signed Patient: CRISTINA GILL CMR#: [id number] : 4Acct:[id number] Age/Sex: 68 / FADM Date: 04/23/24 Loc: MAMMO Attending Dr: Jairon Pisano D.O. Ordering Physician: Jairon Pisano D.O.Results: Date of Service: 04/23/24Follow Up: Procedure(s): MM tomosynthesis screening BI Accession Number(s): [id number] cc: Jairon Pisano D.O.; CHARLES BAZZI Patient Name: CRISTINA GILL MR#: [id number] : 1955 Exam Date: 04/23/2024 Ordering Doctor: [...] Treatments None Family Cancers None LOCATION: [facility] BREAST COMPOSITION: There are scattered areas of [...] M.D. Signed By:04/23/24 1354 DD/ 1353 TD/TT: Customer Experience Manager: Jairon Aliya DO [facility] Final Result from Last 3 Months or Most Recently Relevant to Health Maintenance Insurance [facility] Care Teams Food Service Worker Relationship Specialty Start Date End Date Charles Bazzi DO PCP - General 12/13/22
--- OUTSIDE RECORDS SUMMARY | 2025-02-12 09:12 | XMS_ITS ---
Author Organization [facility] Address [address] [place] [id number] Care Team Providers Care Mds Coordinator Name Role Phone Leon Coliner Primary Care Provider Tapan Corona MD Unavailable [phone] Naheed Elias PA-C Unavailable [phone] Maryuri Rodriguez Unavailable Unavailable Active Problems Problem Noted Date Diagnosed Date Partial small bowel obstruction 11/06/2023 Ileostomy bag changed 08/31/2023 Ileostomy present 08/26/2023 Rectal adenocarcinoma 08/25/2023 Cancer Staging:Pathologic stage from 08/31/2023: ypT0, pN0 - Signed by Zeb Marshall MD on 08/31/2023 Atrial fibrillation 08/09/2023 08/09/2023 Assessment & Plan (08/11/2023 12:44 PM EST): Assessment: paroxysmal, one instance. chemo induced. No thinner. Has been on aspirin preventatively. RRR today, no murmur Per cardiology ,Dr. Canales: After receiving chemotherapy the patient admitted to the hospital for evaluation for chest pain CTA of the chest was negative. Her echocardiogram was normal referred for a Lexiscan myocardial fusion study which done at the [facility] and was able to retrieve the result and it was normal and I have reviewed that with the patient. GERD (gastroesophageal reflux disease) 01/08/09/2023 Assessment & Plan (08/11/2023 12:41 PM EST): Assessment: Managed and stable with current medication. Denies difficulty swallowing or any bleeding. Hemorrhoids 08/09/2023 08/09/2023 Hyperlipidemia 08/09/2023 08/09/2023 Assessment & Plan (08/11/2023 12:41 PM EST): Assessment: diet controlled Mixed anxiety depressive disorder 08/09/2023 08/09/2023 Assessment & Plan (08/11/2023 12:42 PM EST): Assessment: stable with current medication regimen Iron deficiency anemia, unspecified 07/06/2023 Assessment & Plan (08/14/2023 11:46 AM EST): Assessment: Stable. Denies bleeding. States chemo induced. Hemoglobin (g/dL) Date Value 08/11/2023 12.5 07/13/2023 9.4 07/05/2023 9.9 Rectal cancer 06/14/2023 Assessment & Plan (08/11/2023 12:42 PM EST): Assessment: last chemo 06/2023, presents for surgical intervention Essential hypertension 04/25/2017 Assessment & Plan (08/11/2023 12:40 PM EST): Assessment: stable and compliant with current medications Last 5 Encounter BP Readings: Date: BP: 08/11/2023 105/75 08/07/2023 104/62 07/27/2023 104/68 07/27/2023 145/68 07/21/2023 122/66 Personal history of malignant melanoma of skin 1 Osteoarthrosis, unspecified whether generalized or localized, ankle and foot 12/20/2005 Current Treatment and Therapy Plans No current plan information found. Past Treatment and Therapy Plans ONCOLOGY REGIMEN Plan Name Start Date Discontinue Date Treatment Medications Discontinue Reason Plan Provider Cycles AMB MODIFIED FOLFOX 6 - OXALIPLATIN 85 5FU 400 IVP D1 5FU 2400 CADD OVER 46 HRS - Q14D 023 07/13/2023 fluorouracil iv infusion CASSETTE (ADRUCIL)with rateleucovorin iv piggybackoxaliplatin iv piggyback in D5W 500 mL (ELOXATIN)palonosetron (ALOXI) Not Tolerated Tapan Corona MD 1 of 12 cycles started Resolved Problems Problem Noted Date Diagnosed Date Resolved Date Small bowel obstruction 08/31/202308/11 Encounter for ostomy care education 08/26/2023 08/29/2023
--- OUTSIDE RECORDS SUMMARY | 2025-02-12 09:12 | XMS_ITS | Encounter Summary ---
Author Organization [facility] Address [address] [place] [address] Care Team Providers Care Vacuum Evaporation Operator Name Role Phone Leon Colin Primary Care Provider [phone] Colleen Solorio RN Unavailable [phone] Tapan Corona MD Unavailable [phone] Naheed Elias PA-C Unavailable [phone] Maryuri Rodriguez Unavailable Unavailable Source Comments In the event this information is protected by the Federal Confidentiality of Alcohol and Drug AbusePatient Records regulations: The Federal rules restrict any use of the information to criminally investigate or prosecute any alcohol or drug abuse patient.[facility] Encounter Details Date Type Department Care Team (Latest Contact Info) Description 10/30/2023 H&P External-NonCCF Provider, [place] Andrade Do not enter address information under generic External Provider. Social History Tobacco Use Types Packs/Day Years Used Date Smoking Tobacco: Never Passive Smoke Exposure: Past Smokeless Tobacco: Never Alcohol Use Standard Drinks/Week Comments Not Currently 0 (1 standard drink = 0.6 oz pur e alcohol) 2 times a month if that [facility] Utilities Answer Date Recorded In the past 12 months has th e electric, gas, oil, or water company threatened to shut off services in your home? Patient refused 08/31/2023 Overall Financial Resource Strain (CARDIA) Answe r Date Recorded How hard is it for you to pa y for the very basics like food, housing, medical care, and heating? Patient declined 08/31/2023 PHQ-2 Answer Date Recorded PHQ-2 score 0 10/07/2023 Hunger Vital Sign Answer Date Recorded Within the past 12 months, y ou worried that your food would run out before you got the money to buy more. Patient declined Within the past 12 months, t he food you bought just didn't last and you didn't have money to get more. Patient declined PRAPARE - Transportation Answer Date Re corded In the past 12 months, has l ack of transportation kept you from medical appointments or from getting medications? Patient declined 08/31/2023 In the past 12 months, has l ack of transportation kept you from meetings, work, or from getting things needed for daily living? Patient declined 08/31/2023 Housing Stability Vital Sign Answer Luigi e Recorded In the last 12 months, was t here a time when you were not able to pay the mortgage or rent on time? Patient refused 08/31/19 24 Number of Places Lived in the Last Year Not on f ile 08/31/2023 In the last 12 months, was t here a time when you did not have a steady place to sleep or slept in a jail (including now)? 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] 02/20/2025 1:20 PM EDT Office Visit Colorectal Surgery [address] [place] [address] [place] [address] [place] [address] Est Pt: 1 yr f/up, robotic LAR, DLI, surgery 08/25/23 02/20/2025 2:00 PM EDT Visit (SP) Office Hematology [address] [place] [address] Tapan Corona MD [address] [place] [address] [place] 03/12/2025 2:45 PM EDT OT/PT/Speech Visit Physical Therapy [address] [place] [address] Therese Anthony A, PT [address] [place] [address] 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] 04/02/2025 1:00 PM EDT OT/PT/Speech Visit Physical Therapy [address] [place] [address] WiTherese ochoa A, PT [address] [place] [address] 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] 04/16/2025 9:45 AM EDT Office Visit Radiation Oncology [address] [place] [address] Del Aguilar MD [address] [place] [address] [place] [address] Return in about 6 months 04/23/2025 1:00 PM EDT OT/PT/Speech Visit Physical Therapy [address] [place] [address] Therese Anthony A, PT [address] [place] [address] 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] documented as of this encounter Visit Diagnoses Not on filedocumented in this encounter Care Teams Vacuum Evaporation Operator Relationship Specialty Start Date End Date Leon Colin [address] [place] [phone] PCP - General Family Medicine 03/16/23 Colleen Solorio RN [address] [place] [address] [place] [address] Specialty Machine Slat Basket Maker Hematology/Oncology 03/22/23 02/07/24 Tapan Corona MD [address] [place] [address] [place] [address] Physician Hematology/Oncology 03/22/23 Naheed Elias PADesireeC [address] [place] [address] [place] [address] Physician Clerical Transcriber Hematology/Oncology 03/22/23 Maryuri Rodriguez LSW Clinical Documentation Consultant 07/21/23 documented as of this encounter
--- OUTSIDE RECORDS SUMMARY | 2025-02-12 09:12 | XMS_ITS | Encounter Summary ---
Author Organization [facility] Address [address] [place] [address] Care Team Providers Care Test Fixture Designer Name Role Phone Leon Colin DO Primary Care Provider [phone] Encounter Details Date Type Department Care Team (Late st Contact Info) Description 12/13/2022 Abstract [facility] [address] [place] [address] Zeb Valle DO [address] [place] [address] Social History Tobacco Use Types Packs/Day Years Used Date Smoking Tobacco: Never Tobacco Cessation:Counseling Given: Not Answered Alcohol Use Standard Drinks/Week Comments Yes 0 (1 standard drink = 0.6 oz pur e alcohol) Coffee: 2-3 cups per day Comments Unknown Sex and Gender Information Value Date Recorded Sex Assigned at Female 12/07/2022 8:42 AM EDT Legal Sex Female 7:08 PM EDT Gender Identity Not on file Sexual Orientation Not on file documented as of this encounter Plan of Treatment Not on file documented as of this encounter Visit Diagnoses Not on filedocumented in this encounter Care Teams Test Fixture Designer Relationship Specialty Start Date End Date Leon Colin DO PCP - General 12/13/22 documented as of this encounter
--- OUTSIDE RECORDS SUMMARY | 2025-02-12 09:12 | XMS_ITS | Encounter Summary ---
Author Organization [facility] Address [address] [facility] [place] [address] Care Team Providers Care Tactical Response Group Officer Name Role Phone Leon Colin DO Primary Care Provider [phone] Encounter Details Date Type Department Care Team (Late st Contact Info) Description 02/23/2024 Abstract [facility] [address] [place] [address] Nathalie Vargas LPN [address] [phone] Social History Tobacco Use Types Packs/Day Years [...] on filedocumented in this encounter Care Teams Tactical Response Group Officer Relationship Specialty Start Date End Date Leon Colin DO PCP - General 12/13/22 documented as of this encounter
--- OUTSIDE RECORDS SUMMARY | 2025-02-12 09:12 | XMS_ITS | Encounter Summary ---
Author Organization [facility] Address [facility] [place] [address] Care Team Providers Care Ship Cleaner Name Role Phone Leon Colin Primary Care Provider [phone] Colleen Solorio RN Unavailable [phone] Tapan Corona MD Unavailable [phone] Naheed Elias PA-C Unavailable [phone] Maryuri Rodriguez Unavailable Unavailable Source Comments In the event this information is protected by the Federal Confidentiality of Alcohol and Drug AbusePatient Records regulations: The Federal rules restrict any use of the information to criminally investigate or prosecute any alcohol or drug abuse patient.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] 02/20/2025 1:20 PM EDT Office Visit Colorectal Surgery [address] [place] [address] [place] [address] [place] [address] Est Pt: 1 yr f/up, robotic LAR, DLI, surgery 08/25/23 02/20/2025 2:00 PM EDT Visit (SP) Office Hematology [address] [place] [address] Tapan Corona MD [address] [place] [address] [place] 03/12/2025 2:45 PM EDT OT/PT/Speech Visit Physical Therapy [address] [place] [address] Therese Anthony, PT [address] [place] [address] 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] 04/02/2025 1:00 PM EDT OT/PT/Speech Visit Physical Therapy [address] [place] [address] Therese Anthony, PT [address] [place], [place] [id number] 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] 04/16/2025 9:45 AM EDT Office Visit Radiation Oncology [address] [place] [address] Del Aguilar MD [address] [place] [address] Return in about 6 months 04/23/2025 1:00 PM EDT OT/PT/Speech Visit Physical Therapy [address] [place] [address] Therese Anthony, PT [address] [place] [address] 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] documented as of this encounter Visit Diagnoses Not on filedocumented in this encounter Care Teams Ship Cleaner Relationship Specialty Start Date End Date Leon Colin [address] [place] [phone] PCP - General Family Medicine 03/16/23 Colleen Solorio, RN [address] [place] [address] [place] [address] Specialty Pattern Repair Person Hematology/Oncology 03/22/23 02/07/24 Tapan Corona MD [address] [place] [address] [place] [address] Physician Hematology/Oncology 03/22/23 Naheed Elias, PADesireeC [address] [place] [address] [place] [address] Physician Property Inspector Hematology/Oncology 03/22/23 Maryuri Rodriguez LSW Iron Carrier 07/21/23 documented as of this encounter
--- OUTSIDE RECORDS SUMMARY | 2025-02-12 09:12 | XMS_ITS | Encounter Summary ---
Author Organization [facility] Address [address] [place] [address] Care Team Providers Care Telecommunications Engineer Name Role Phone Leon Colin Primary Care Provider [phone] Colleen Solorio RN Unavailable [phone] Tapan Corona MD Unavailable [phone] Naheed Elias PA-C Unavailable [phone] Maryuri Rodriguez Unavailable Unavailable Source Comments In the event this information is protected by the Federal Confidentiality of Alcohol and Drug AbusePatient Records regulations: The Federal rules restrict any use of the information to criminally investigate or prosecute any alcohol or drug abuse patient.[facility] Encounter Details Date Type Department Care Team (Late st Contact Info) Description 03/13/2023 [place] [address] Provider, Ccf Questionnaire Submission Social History Tobacco Use Types Packs/Day Years Used Date Smoking Tobacco: Never Passive Smoke Exposure: Past Smokeless Tobacco: Never Alcohol Use Standard Drinks/Week Comments Yes 0 (1 standard drink = 0.6 oz pur e alcohol) socially Comments No Sex and Gender Information Value Date Recorded Sex Assigned at Not on file Legal Sex Female 9:50 AM EST Gender Identity Not on file Sexual Orientation Not on file documented as of this encounter Plan of Treatment Upcoming Encounters Date Type Department Care Team (Late st Contact Info) Description 02/19/2025 1:00 PM EDT OT/PT/Speech Visit Physical Therapy [address] [place] [address] Therese Anthony, PT [address] [place] [address] 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] 02/20/2025 1:20 PM EDT Office Visit Colorectal Surgery [address] [place] [address] [place] [address] [place] [address] Est Pt: 1 yr f/up, robotic LAR, DLI, surgery 08/25/23 02/20/2025 2:00 PM EDT Visit (SP) Office Hematology [address] [place] [address] Tapan Corona MD [address] [place] [address] [place] 03/12/2025 2:45 PM EDT OT/PT/Speech Visit Physical Therapy [address] [place] [address] Therese Anthony, PT [address] [place] [address] 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] documented as of this encounter Visit Diagnoses Not on filedocumented in this encounter Care Teams Telecommunications Engineer Relationship Specialty Start Date End Date Leon Colin [address] [place] [phone] PCP - General Family Medicine 03/16/23 Colleen Solorio, RN [address] [place] [address] [place] [address] Specialty Content Specialist Hematology/Oncology 03/22/23 02/07/24 Tapan Corona MD [address] [place] [address] [place] [address] Physician Hematology/Oncology 03/22/23 Naheed Elias, PA-C [address] [place] [address] [place] [address] Physician District Resource Officer Hematology/Oncology 03/22/23 Maryuri Rodriguez LSW Tree Deadener 07/21/23 documented as of this encounter
--- OUTSIDE RECORDS SUMMARY | 2025-02-12 09:12 | XMS_ITS | Encounter Summary ---
Author Organization [facility] Address [address] [place] [address] Care Team Providers Care Emergency Room Orderly Name Role Phone Leon Colin Primary Care Provider [phone] Colleen Solorio RN Unavailable [phone] Tapan Corona MD Unavailable [phone] Naheed Elias PA-C Unavailable [phone] Maryuri Rodriguez Unavailable Unavailable Source Comments In the event this information is protected by the Federal Confidentiality of Alcohol and Drug AbusePatient Records regulations: The Federal rules restrict any use of the information to criminally investigate or prosecute any alcohol or drug abuse patient.[facility] Encounter Details Date Type Department Care Team (Late st Contact Info) Description 06/07/2023 GI Preprocedure Call [facility] Surgery [address] [place] [address] Leon Colin [address] [place] [address] Social History Tobacco Use Types Packs/Day Years [...] Visit Physical Therapy [address] [place] [address] Therese Anthony, PT [address] [place] [address] 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] 02/20/2025 1:20 PM EDT Office Visit Colorectal Surgery [address] [place] [address] [place] [address] [place] [address] Est Pt: 1 yr f/up, robotic LAR, DLI, surgery 08/25/23 02/20/2025 2:00 PM EDT Visit (SP) Office Hematology [address] [place] [address] Tapan Corona MD [address] [place] [address] [place] 03/12/2025 2:45 PM EDT OT/PT/Speech Visit Physical Therapy [address] [place] [address] Therese Anthony, PT [address] [place] [address] 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] 04/02/2025 1:00 PM EDT OT/PT/Speech Visit Physical Therapy [address] [place] [address] Therese Anthony, PT [address] [place] [address] 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] 04/16/2025 9:45 AM EDT Office Visit Radiation Oncology [address] [facility] [place] [address] Del Aguilar MD [address] [place] [address] [place] [address] Return in about 6 months 04/23/2025 1:00 PM EDT OT/PT/Speech Visit Physical Therapy [address] [place] [address] Therese Anthony, PT [address] [place] [address] 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] documented as of this encounter Visit Diagnoses Not on filedocumented in this encounter Care Teams Emergency Room Orderly Relationship Specialty Start Date End Date Leon Colin [address] [place] [phone] PCP - General Family Medicine 03/16/23 Colleen Solorio, RN [address] [facility] [place] [address] Specialty Ships Or Barges Loader Hematology/Oncology 03/22/23 02/07/24 Tapan Corona MD [address] [place] [address] [place] [address] Physician Hematology/Oncology 03/22/23 Naheed Elias PADesireeC [address] [place] [address] [place] [address] Physician Injection Maintenance Technician Hematology/Oncology 03/22/23 Maryuri Rodriguez LSW Election Supervisor 07/21/23 documented as of this encounter
--- OUTSIDE RECORDS SUMMARY | 2025-02-12 09:12 | XMS_ITS | Encounter Summary ---
Author Organization [facility] Address [address] [place] [address] Care Team Providers Care Political Geographer Name Role Phone Leon Colin DO Primary Care Provider [phone] Encounter Details Date Type Department Care Team (Late st Contact Info) Description 01/17/2023 Abstract [facility]ON[facility]ons Physical Therapy [address] [facility] [address] [place] [id number] Jose Carlos Kennedy, PT Social History Tobacco Use Types Packs/Day Years Used Date Smoking Tobacco: Never Smokeless Tobacco: Never Alcohol Use Standard Drinks/Week Comments Yes 0 (1 standard drink = 0.6 oz pure alcohol) 2-4 times/month. Coffee: 2-3 cups per day Comments Unknown [...] suspected to have Coronavirus/COVID-19? No / Unsure 12/20/2022 8:49 AM EDT documented as of this encounter Plan of Treatment Not on file documented as of this encounter Visit Diagnoses Not on filedocumented in this encounter Care Teams Political Geographer Relationship Specialty Start Date End Date Leon Colin DO PCP - General 12/13/22 documented as of this encounter
--- OUTSIDE RECORDS SUMMARY | 2025-02-12 09:13 | XMS_ITS | Encounter Summary ---
Author Organization [facility] Address [address] [place] [address] Care Team Providers Care Bonsai Tender Name Role Phone Leon Colin Primary Care Provider [phone] Tapan Corona MD Unavailable [phone] Naheed Elias PA-C Unavailable [phone] Maryuri Rodriguez Unavailable Unavailable Source Comments In the event this information is protected by the Federal Confidentiality of Alcohol and Drug AbusePatient Records regulations: The Federal rules restrict any use of the information to criminally investigate or prosecute any alcohol or drug abuse patient.[facility] Encounter Details Date Type Department Care Team (Late st Contact Info) Description 02/11/2025 Orders Only Hematology [address] [place], [place] [id number] Tapan Corona MD [address] [place] [address] History of rectal cancer (Primary Dx); Rectal cancer (HCC) Social History Tobacco Use Types Packs/Day Years Used Date Smoking Tobacco: Never Passive Smoke Exposure: Past Smokeless Tobacco: Never Alcohol Use Standard Drinks/Week Comments Yes 0 (1 standard drink = 0.6 oz pur e alcohol) 2 times a month if that [facility] Utilities Answer Date Recorded In the past [...] place to sleep or slept in a residential (including now)? 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] 02/20/2025 1:20 PM EDT Office Visit Colorectal Surgery [address] [place] [address] [place] [address] [place] [address] Est Pt: 1 yr f/up, robotic LAR, DLI, surgery 08/25/23 02/20/2025 2:00 PM EDT Visit (SP) Office Hematology [address] [place] [address] Tapan Corona MD [address] [place] [address] RECTAL [place] 03/12/2025 2:45 PM EDT OT/PT/Speech Visit Physical Therapy [address] [place] [address] Therese Anthony, PT [address] [place] [address] 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] 04/02/2025 1:00 PM EDT OT/PT/Speech Visit Physical Therapy [address] [place] [address] Therese Anthony, PT [address] [place] [address] 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] 04/16/2025 9:45 AM EDT Office Visit Radiation Oncology [address] [place] [address] [place] [address] Del Aguilar MD [address] [place] [address] [place] [address] Return in about 6 months 04/23/2025 1:00 PM EDT OT/PT/Speech Visit Physical Therapy [address] [place] [address] Therese Anthony, PT [address] [place] [address] 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] Scheduled Orders Name Type Priority Associated Diagnoses Orde r Schedule [facility] 1 Lab Routine History of rectal cancer Rectal cancer (HCC) Expected: 02/11/2025, Expires: 05/13/2025 documented as of this encounter Visit Diagnoses Diagnosis History of rectal cancer- Primary Personal history of malignant neoplasm of rectum, rectosigmoid junction, and anus Rectal cancer (HCC) 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
--- OUTSIDE RECORDS SUMMARY | 2025-02-12 09:13 | XMS_ITS | Encounter Summary ---
Author Organization [facility] Address [address] [place] [address] Care Team Providers Care Vocational Examiner Name Role Phone Leon Colin Primary Care Provider [phone] Colleen Solorio RN Unavailable [phone] Tapan Corona MD Unavailable [phone] Naheed Elias PA-C Unavailable [phone] Maryuri Rodriguez Unavailable Unavailable Source Comments In the event this information is protected by the Federal Confidentiality of Alcohol and Drug AbusePatient Records regulations: The Federal rules restrict any use of the information to criminally investigate or prosecute any alcohol or drug abuse patient.[facility] Encounter Details Date Type Department Care Team (Late st Contact Info) Description 07/19/2023 Patient Msg Hematology/Oncology [address] [facility] [place] [address] Provider, Ccf Appointment Cancellation Request Social History Tobacco Use Types Packs/Day Years [...] PM EDT OT/PT/Speech Visit Physical Therapy [address] [place] [address] Therese Anthony, PT [address] [place], [place] [id number] 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] 02/20/2025 1:20 PM EDT Office Visit Colorectal Surgery [address] [place] [address] [place] [address] [place] [address] Est Pt: 1 yr f/up, robotic LAR, DLI, surgery 08/25/23 02/20/2025 2:00 PM EDT Visit (SP) Office Hematology [address] [place] [address] Tapan Corona MD [address] [place] [address] RECTAL [place] 03/12/2025 2:45 PM EDT OT/PT/Speech Visit Physical Therapy [address] [place] [address] Therese Anthony, PT [address] [place] [address] 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] 04/02/2025 1:00 PM EDT OT/PT/Speech Visit Physical Therapy [address] [place] [address] Therese Anthony, PT [address] [place] [address] 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] 04/16/2025 9:45 AM EDT Office Visit Radiation Oncology [address] [facility] [place] [address] Del Aguilar MD [address] [place] [address] [place] [address] Return in about 6 months 04/23/2025 1:00 PM EDT OT/PT/Speech Visit Physical Therapy [address] [place] [address] Therese Anthony, PT [address] [place] [address] 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] documented as of this encounter Visit Diagnoses Not on filedocumented in this encounter Care Teams Vocational Examiner Relationship Specialty Start Date End Date Leon Colin [address] [place] [phone] PCP - General Family Medicine 03/16/23 Colleen Solorio, RN [address] [place] [address] [place] [address] Specialty Managed Care Nurse Hematology/Oncology 03/22/23 02/07/24 Tapan Corona MD [address] [place] [address] [place] [address] Physician Hematology/Oncology 03/22/23 Naheed Elias, PADesireeC [address] [place] [address] [place] [address] Physician Window Installation Subcontractor Hematology/Oncology 03/22/23 Maryuri Rodriguez LSW Pen Rider 07/21/23 documented as of this encounter
--- OUTSIDE RECORDS SUMMARY | 2025-02-12 09:13 | XMS_ITS | Encounter Summary ---
Author Organization [facility] Address [address] [place] [address] Care Team Providers Care Remnant Sorter Name Role Phone Leon Colin Primary Care Provider [phone] Tapan Corona MD Unavailable [phone] Naheed Elias PA-C Unavailable [phone] Maryuri Rodriguez Unavailable Unavailable Source Comments In the event this information is protected by the Federal Confidentiality of Alcohol and Drug AbusePatient Records regulations: The Federal rules restrict any use of the information to criminally investigate or prosecute any alcohol or drug abuse patient.[facility] Reason for Visit * Reason Comments Orders Encounter Details Date Type Department Care Team (Late st Contact Info) Description 02/10/2025 Telephone Hematology/Oncology [address] [place] [address] [place] [address] Tapan Corona MD [address] [place] [address] [place] [address] Orders Social History Tobacco Use Types Packs/Day Years Used Date Smoking Tobacco: Never Passive Smoke Exposure: Past Smokeless Tobacco: Never Alcohol Use Standard Drinks/Week Comments Yes 0 (1 standard drink = 0.6 oz pur e alcohol) 2 times a month if that [facility] Utilities Answer Date Recorded In the [...] place to sleep or slept in a long term (including now)? No 11/09/2023 Comments No Sex [...] Rush Cano RN documented in this encounter Miscellaneous Notes * Telephone Encounter - Fiordaliza Cortés LPN - 02/11/2025 2:01 PM EDT [facility] order placed * Telephone Encounter - Prachi Kelley RN - 02/10/2025 1:57 PM EDT DIONTE- are you willing to sign Signater[facility] for pt? She is here and would like this done prior to seeingKAS. He is out. Please sign if agreeable. Prachi Kelley RN * Telephone Encounter - Arlene Gomez RN - 02/10/2025 1:[address] order for [facility] lab Thank You! 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] 02/20/2025 1:20 PM EDT Office Visit Colorectal Surgery [address] [place] [address] [place] [address] [place] [address] Est Pt: 1 yr f/up, robotic LAR, DLI, surgery 08/25/23 02/20/2025 2:00 PM EDT Visit (SP) Office Hematology [address] [place] [address] Tapan Corona MD [address] [place] [address] RECTAL [place] 03/12/2025 2:45 PM EDT OT/PT/Speech Visit Physical Therapy [address] [place] [address] Therese Anthony, PT [address] [place] [address] 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] 04/02/2025 1:00 PM EDT OT/PT/Speech Visit Physical Therapy [address] [place] [address] Therese Anthony, PT [address] [place] [address] 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] 04/16/2025 9:45 AM EDT Office Visit Radiation Oncology [address] [place] [address] [place] [address] Del Aguilar MD [address] [place] [address] [place] [address] Return in about 6 months 04/23/2025 1:00 PM EDT OT/PT/Speech Visit Physical Therapy [address] [place] [address] Therese Anthony, PT [address] [place] [address] 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] Pending Results Name Type Priority Associated Diagnoses Date /Time MISC SEND OUT TST 1 Lab Routine Rectal cancer (HCC) 02/10/2025 2:29 PM EDT Scheduled Orders Name Type Priority Associated Diagnoses Orde r Schedule MISC SEND OUT TST 1 Lab Routine Rectal cancer (HCC) Expected: 02/10/2025, Expires: 05/12/2025 documented as of this encounter Visit Diagnoses Diagnosis Rectal cancer (HCC)- Primary 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- Primary documented in this encounter Care Teams Remnant Sorter Relationship Specialty Start Date End Date Leon Colin [address] [place] [phone] PCP - General Family Medicine 03/16/23 Tapan Corona MD [address] [place] [address] Physician Hematology/Oncology 03/22/23 Naheed Elias, PADesireeC [address] [place] [address] [place] [address] Physician Digital Analyst Hematology/Oncology 03/22/23 Maryuri Rodriguez LSW Blade Boner 07/21/23 documented as of this encounter
--- OUTSIDE RECORDS SUMMARY | 2025-02-12 09:13 | XMS_ITS | Encounter Summary ---
Author Organization [facility] Address [address] [place] [address] Care Team Providers Care Restoration Technician Name Role Phone Leon Colin Brendon Primary Care Provider [phone] Tapan Corona MD Unavailable [phone] Naheed Elias PA-C Unavailable [phone] Maryuri Rodriguez Unavailable Unavailable Source Comments In the event this information is protected by the Federal Confidentiality of Alcohol and Drug AbusePatient Records regulations: The Federal rules restrict any use of the information to criminally investigate or prosecute any alcohol or drug abuse patient.[facility] Encounter Details Date Type Department Care Team (Late st Contact Info) Description 01/29/2025 Plan of Care Documentation Physical Therapy [address] [place], [place] [id number] Social History Tobacco Use Types Packs/Day Years Used Date Smoking Tobacco: Never Passive Smoke Exposure: Past Smokeless Tobacco: Never Alcohol Use Standard Drinks/Week Comments Yes 0 (1 standard drink = 0.6 oz pur e alcohol) 2 times a month if that [facility] Utilities Answer Date Recorded In the past [...] place to sleep or slept in a senior living (including now)? No 11/09/2023 Comments No Sex [...] documented in this encounter Miscellaneous Notes * Care and Service Plan - Therese Anthony, PT - 01/29/2025 12:32 PM EDT [facility] Physical Therapy Plan of Care Certification Patient Name: Cristina Kelley : 1955 [facility] #: [id number] Date: 01/28/2025 To: Laisha Singer MD From Therapist: Therese Anthony, JACQUELIN RE: Patient Certification/ Recertification Your review, approval and electronic signature are required in order to comply with Payor: MEDICARE/ Plan: MEDICARE A AND B / Product Type: Medicare / regulations. The identified Physical Therapy PLAN OF CARE for the patient is as follows: M62.838 Muscle spasm (primary encounter diagnosis) R19.8 Low anterior resection syndrome PLAN OF CARE: Assessment: Cristina Kelley presents with chief complaint of fecal urge and weekly FI since last surgery to re-connect her bowels last year; several BM at a time and not feeling empty in between, thatinterferes with bowel function . The patient presents with impairments in coordination, flexibility, independence in exercise, strength, symptom management, tissue tenderness, and deep breathing and PFM dynamics . PROMIS?? (Patient-Reported Outcomes Measurement Information System) scores were reviewed and identified as within normal limits. Prognosis for therapy is Good due to: current objective clinical presentation, good overall health status . The patient will benefit from skilled therapy services to meet the goals established for this plan of care as noted below. Goals for Episode of Care: established 01/28/25 -IND with HEP - decreased rectal spasm and pain less than 2/10 to allow optimal strengthening and function - FI to rare- less than monthly - PFM strength to 4/5 minimum and duration up to 30 sec sub- max holds; able to lengthen at will 90% of the time -BM 1-2 per day larger amount each time, no straining Patient Goals: less clustering of BM- 3-4 over an hour or so and may leak some between ; less FI Time Frame for Goals and Treatment : 04/23/25 Planned Interventions, Frequency, and Duration: Current Frequency: 1x every other week Duration: 12 weeks Total Number of Visits Planned: 6 Planned Treatment Interventions: Therapeutic exercise (96652), Neuromuscular re- education (10299), Manual therapy (34608), Self-nursing home management (11696), Patient/Family/Caregiver Education PLAN FOR NEXT VISIT: progress HEP; hips and spine; PFM dynamics - try sitting, other positions to help her achieve better control Patient demonstrates good understanding of plan of care and treatment. The above goals and plan of care were discussed and agreed upon by patient/family. For further details regarding this patient refer to the Physical Therapy electronically documented visit dated 01/28/2025. Provider Attestation I have reviewed the treatment plan for Cristina Kelley, [facility]# [id number] for the period of 01/28/25 -- 04/23/25, established on 01/28/2025. Signature certifies the need for therapy services. 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] 02/20/2025 1:20 PM EDT Office Visit Colorectal Surgery [address] [place] [address] [place] [address] [place] [address] Est Pt: 1 yr f/up, robotic LAR, DLI, surgery 08/25/23 02/20/2025 2:00 PM EDT Visit (SP) Office Hematology [address] [facility] [place] [address] Tapan Corona MD [address] [place] [address] [place] 03/12/2025 2:45 PM EDT OT/PT/Speech Visit Physical Therapy [address] [place] [address] Therese Anthony, PT [address] [place] [address] 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] 04/02/2025 1:00 PM EDT OT/PT/Speech Visit Physical Therapy [address] [place] [address] Therese Anthony, PT [address] [place], [place] [id number] 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] 04/16/2025 9:45 AM EDT Office Visit Radiation Oncology [address] [place] [address] [place] [address] Del Aguilar MD [address] [place] [address] [place] [address] Return in about 6 months 04/23/2025 1:00 PM EDT OT/PT/Speech Visit Physical Therapy [address] [place] [address] Therese Anthony, PT [address] [place] [address] 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
--- OUTSIDE RECORDS SUMMARY | 2025-02-12 09:13 | XMS_ITS | Encounter Summary ---
Author Organization [facility] Address [address] [place] [address] Care Team Providers Care Crisis Nurse Name Role Phone Leon Colin Brendon Primary Care Provider [phone] Tapan Corona MD Unavailable [phone] Naheed Elias PA-C Unavailable [phone] Maryuri Rodriguez Unavailable Unavailable Source Comments In the event this information is protected by the Federal Confidentiality of Alcohol and Drug AbusePatient Records regulations: The Federal rules restrict any use of the information to criminally investigate or prosecute any alcohol or drug abuse patient.[facility] Encounter Details Date Type Department Care Team (Late st Contact Info) Description 11/28/2024 Patient Msg Physical Therapy [address] [place], [place] [id number] Provider, [facility] Physical Therapy appointment cancellation Social History Tobacco Use Types Packs/Day Years Used Date Smoking Tobacco: Never Passive Smoke Exposure: Past Smokeless Tobacco: Never Alcohol Use Standard Drinks/Week Comments Yes 0 (1 standard drink = 0.6 oz pur e alcohol) 2 times a month if that [facility] Utilities Answer Date Recorded In the [...] money to buy more. Never true 11/09/19 Within the past 12 months, t he [...] place to sleep or slept in a nursing home (including now)? 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] 02/20/2025 1:20 PM EDT Office Visit Colorectal Surgery [address] [place] [address] [place] [address] [place] [address] Est Pt: 1 yr f/up, robotic LAR, DLI, surgery 08/25/23 02/20/2025 2:00 PM EDT Visit (SP) Office Hematology [address] [place] [address] Tapan Corona MD [address] [place] [address] [place] 03/12/2025 2:45 PM EDT OT/PT/Speech Visit Physical Therapy [address] [place] [address] Therese Anthony, PT [address] [place] [address] 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] 04/02/2025 1:00 PM EDT OT/PT/Speech Visit Physical Therapy [address] [place] [address] WiShahana ochoaly A, PT [address] [place] [address] 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] 04/16/2025 9:45 AM EDT Office Visit Radiation Oncology [address] [place] [address] [place] [address] Del Aguilar MD [address] [place] [address] [place] [address] Return in about 6 months 04/23/2025 1:00 PM EDT OT/PT/Speech Visit Physical Therapy [address] [place] [address] Therese Anthony A, PT [address] [place] [address] 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
--- OUTSIDE RECORDS SUMMARY | 2025-02-12 09:13 | XMS_ITS | Encounter Summary ---
Author Organization [facility] Address [address] [place] [address] Care Team Providers Care Geothermal Operating Engineer Name Role Phone Leon Colin Primary Care Provider [phone] Tapan Corona MD Unavailable [phone] Naheed Elias PA-C Unavailable [phone] Maryuri Rodriguez Unavailable Unavailable Source Comments In the event this information is protected by the Federal Confidentiality of Alcohol and Drug AbusePatient Records regulations: The Federal rules restrict any use of the information to criminally investigate or prosecute any alcohol or drug abuse patient.[facility] Encounter Details Date Type Department Care Team (Late st Contact Info) Description 02/11/2025 Results Follow-Up Hematology [address] [place], [place] [id number] Tapan Corona MD [address] [place] [address] Social History Tobacco Use Types Packs/Day Years Used Date Smoking Tobacco: Never Passive Smoke Exposure: Past Smokeless Tobacco: Never Alcohol Use Standard Drinks/Week Comments Yes 0 (1 standard drink = 0.6 oz pur e alcohol) 2 times a month if that [facility] Utilities Answer Date Recorded In the past [...] place to sleep or slept in a care home (including now)? 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] 02/20/2025 1:20 PM EDT Office Visit Colorectal Surgery [address] [place] [address] [place] [address] [place] [address] Est Pt: 1 yr f/up, robotic LAR, DLI, surgery 08/25/23 02/20/2025 2:00 PM EDT Visit (SP) Office Hematology [address] [place] [address] Tapan Corona MD [address] [place] [address] [place] 03/12/2025 2:45 PM EDT OT/PT/Speech Visit Physical Therapy [address] [place] [address] Therese Anthony, PT [address] [place] [address] 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] 04/02/2025 1:00 PM EDT OT/PT/Speech Visit Physical Therapy [address] [place] [address] Therese Anthony, PT [address] [place] [address] 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] 04/16/2025 9:45 AM EDT Office Visit Radiation Oncology [address] [place] [address] [place] [address] Del Aguilar MD [address] [place] [address] [place] [address] Return in about 6 months 04/23/2025 1:00 PM EDT OT/PT/Speech Visit Physical Therapy [address] [place] [address] Therese Anthony, PT [address] [place] [address] 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] documented as of this encounter Visit Diagnoses Not on filedocumented in this encounter Care Teams Geothermal Operating Engineer Relationship Specialty Start Date End Date Leon Colin [address] [place] [phone] PCP - General Family Medicine 03/16/23 Tapan Corona MD [address] [place] [address] [place] [address] Physician Hematology/Oncology 03/22/23 Naheed Elias, HAILEC [address] [place] [address] [place] [address] Physician Multi Spindle Operator Hematology/Oncology 03/22/23 Maryuri Rodriguez LSW Solution Advisor 07/21/23 documented as of this encounter
--- NOTE | 2025-02-12 09:32 | PM.CN ---
Consult Note: HPI Data of Consult Patient: known to practice within the last 3 years Requesting Physician: Elizabeth Sierra NP Primary Care Provider: CHARLES BAZZI Consult Narrative Reason for consult: left knee pain Narrative: 69yof who presents for assessment. since last visit she underwent a left genicular nerve block with >50% improvement in pain and functional ability for 3 months. continues to utilize voltaren gel, meloxicam, and PRN ibuprofen without side effects. pain 6-7/10 increasing to 8/10. pt would like to repeat therapeutic genicular nerve block as she is not interested in a repeat RFA due to discomfort and need for IV sedation. is not interested in joint replacement surgery at this time. cc:: CC: Elizabeth Sierra NP Review of Systems ROS Status of ROS 10 or more systems reviewed and unremarkable except as noted in history and below PFSH PFS Medical History H/O malignant neoplasm of colon ?Z85.038 - Personal history of other malignant neoplasm of large intestine (ICD-10) Osteoarthritis ?M19.90 - Unspecified osteoarthritis, unspecified site (ICD-10) Heartburn ?R12 - Heartburn (ICD-10) Acid reflux ?K21.9 - Gastro-esophageal reflux disease without esophagitis (ICD-10) Hypertension ?I10 - Essential (primary) hypertension (ICD-10) Surgical History H/O major abdominal surgery ?Z98.890 - Other specified postprocedural states (ICD-10) S/P total knee arthroplasty ?Z96.659 - Presence of unspecified artificial knee joint (ICD-10) Social History Little interest or pleasure in doing things: not at all Feeling down, depressed, or hopeless: not at all Meds Home Medications and Allergies Home Medications ?Medication ?Instructions ?Recorded ?Confirmed ?Type aspirin 81 mg tablet,delayed 81 mg PO DAILY 03/04/24 11/11/24 History release (Adult Low Dose Aspirin) meloxicam 15 mg tablet 15 mg PO DAILY 03/04/24 11/11/24 History omeprazole 40 mg capsule,delayed 40 mg PO DAILY 03/04/24 11/11/24 History release oxybutynin chloride 15 mg 15 mg PO DAILY 03/04/24 11/11/24 History tablet,extended release 24 hr escitalopram oxalate 10 mg tablet 10 mg PO DAILY 07/15/24 11/11/24 History (Lexapro) Allergies Allergy/AdvReac Type Severity Reaction Status Date / Time No Known Drug Allergies Allergy Verified 11/11/24 08:03 Exam Narrative Exam Narrative: Psych-alert and oriented x 3.? Attentive and appropriate, constitutionally normal, displays normal mood and affect per situation.? There are no obvious deficits in memory, reasoning, or intellect. Extremities-lower extremities are warm with minimal edema and palpable pulses. Knee-examination of the left knee reveals no tenderness to palpation over the superior, inferior, lateral, and medial aspect of the knee.? Some swelling is noted without erythema. no pain is elicited with flexion and extension of the knee both actively and passively.? Some grinding is noted with these motions.? There is no notable ligamental laxity or instability.? Coordination remains intact.? Gait remains antalgic. Assessment and Plan Assessment and Plan (1) Unilateral primary osteoarthritis, left knee: Assessment and Plan: 11/11/24 left genicular nerve block 100% improvement while anesthetized and >50% improvement in pain and functional ability for 3 months The patient has had over 3 months of moderate to severe left knee pain with functional impairment and inadequate response to conservative care including NSAIDS (unless there are contraindication such as concurrent blood thinners), multiple oral or topical pain medications, and home exercise program/physical therapy.? Patient has completed >6 weeks of guided home exercise program and/or formal physical therapy program without relief of their symptoms.? Plan repeat therapeutic left genicular nerve block, not interested in RFA as noted above or joint replacement surgery continue current medications f/u after injection
== END 2025-02-12 09:11 | disposition home or self-care (01) ==
LOC: PM 09:10
PROVIDERS: PCP Family Medicine; Visit Provider Nurse Practitioner
DX: M17.12 Unilateral primary osteoarthritis, left knee (principal)
CPT/HCPCS: G0463

== ENCOUNTER 2025-03-03 07:58 | Day surgery (SDC) | payer MEDICARE, OTHER, SELFPAY ==
--- OUTSIDE RECORDS SUMMARY | 2025-02-19 13:00 | XMS_ITS | Encounter Summary ---
Author Organization [facility] Address [facility] [place] [address] Care Team Providers Care Liquor Establishment Manager Name Role Phone Leon Colin Brendon Primary Care Provider [phone] Tapan Corona MD Unavailable [phone] Naheed Elias PA-C Unavailable [phone] Maryuri Rodriguez Unavailable Unavailable Source Comments In the event this information is protected by the Federal Confidentiality of Alcohol and Drug AbusePatient Records regulations: The Federal rules restrict any use of the information to criminally investigate or prosecute any alcohol or drug abuse patient.[facility] Reason for Visit * Reason Comments Physical Therapy * Physical Therapy (Routine) - Authorized Specialty Diagnoses / Procedures Referred By Contac t Referred To Contact [facility] Diagnoses Low anterior resection syndrome Procedures PHYSICAL THERAPY EVALUATION HIGH COMPLEX [place] [address] [place] [address] Phone: tel: fax: [facility] [address] [place], [place] [address], [place] [address] Referral ID Status Reason Start Date Expiration Date Visits Requested Visits Authorized [id number] Authorized PCP Requested Referral Auto-Generate d Referral 10/31/2024 10/31/2025 99 99 Encounter Details Date Type Department Care Team (Late st Contact Info) Description 02/19/2025 1:00 PM EDT OT/PT/Speech Visit Physical Therapy [address] [place] [address] Therese Anthony, PT [address] [place] [address] Muscle spasm (Primary Dx) Social History Tobacco Use Types Packs/Day Years Used Date Smoking Tobacco: Never Passive Smoke Exposure: Past Smokeless Tobacco: Never Alcohol Use Standard Drinks/Week Comments Yes 0 (1 standard drink = 0.6 oz pur e alcohol) 2 times a month if that [facility] Utilities Answer Date Recorded In [...] 08/31/2023 PHQ-2 Answer Date Recorded PHQ-2 score 2 02/18/2025 Hunger Vital Sign Answer Date Recorded Within [...] place to sleep or slept in a correction (including now)? No 11/09/2023 Comments No Sex [...] Rush Cano RN documented in this encounter Progress Notes * Therese Anthony, PT - 02/19/2025 6:03 PM EDT Episode Visit Count: 2 Therapist That Will Accept/Oversee The Plan Of Care: Raj Start of Care Date: 01/28/25 Plan of Care Certification Date: 01/28/25 Next Certification Due Date: 04/23/25 Patient Identified by Name and Date of : Yes [facility] PHYSICAL THERAPY TREATMENT NOTE ASSESSMENT: Cristina Romo Shaunalysha tolerated the session with pain and tightness in her L hip and continuedtightness R side rectally> L. Symptoms are better and she is reducing her frequency of BM and has little more control . She demonstrated improvements in BM symptoms . The patient will continue to benefit from ongoing skilled physical therapy to progress toward set goals. PLAN FOR NEXT VISIT: progress HEP; hips and spine; PFM dynamics - try sitting, other positions to help her achieve better control; check R hip tissues SUBJECTIVE: having larger BM now and puts her feet up - less BM frequency which is good, most 2-3 times in the AM now May have larger stools now at times Pain: Pain Pain Location: (L hi pmay bother her little) Description: Aching Post Treatment Pain Post Treatment Pain Level: Better OBJECTIVE MEASURES WITH LEVEL OF FUNCTION: Pelvic Floor Incomplete emptying: Sometimes (varies) Bowel Movement Frequency: 2-3 Bowel Movement Consistency ([place]) : 4: Like a sausage or snake, smooth and soft, 3: Like a sausage or snake but with cracks on its surface Bloating / abdominal pain: Sometimes Fecal incontinence: (less of this now) Liquid stool: (less often liquid and less leaking) Solid stool: Never Pelvic Floor Muscle Assessment Consent for pelvic assessment/testing and treatment: Patient verbalized consent for the above treatment approaches today. Patient understands they have control of the treatment and an opportunity to stop treatment at any time., Patient was educated regarding pelvic floor physical therapy assessment/treatment which may include pelvic floor and girdle muscle assessment externally or internally (vagi nal or rectal approach). (rectal) Contracton Pressure: Moderate squeeze, felt all the way around finger surface Duration of Contraction: >3 seconds Recruitment of pelvic floor muscles: Uncoordinated Range of Motion: Decreased Ability to Lengthen pelvic floor: (improved some ; R side tighter and more painful and did not moveas much) Relaxation Postcontraction: Partial Diaphragmatic Breathing : Fair Pelvic Floor Manual Assessment External Pelvic Region Tenderness/ Hyperactivity - Lower Extremity: Glut max, Piriformis, Glut medius Glut medius: (L side in SL; several + TRP) Glut max: Left Piriformis: Left (OI also tight pain , ropy) Pelvic Floor Tenderness/Hyperactivity: Tested Rectally in Tested Rectally in : Sidelying Levator Ani: Bilateral Pubococcygeus: (R>L this week also ; moderate R mild-mod L) Puborectalis: Bilateral TREATMENT: Manual Therapy: 1: STM to the trunk tissues as noted ; hip muscles 2: STM to the PFM rectally in SL mainly R side which remains painful and tight - released somewhat by end of treating Skilled Intervention: Manual skills to improve joint mobility, ROM, and decrease pain. Utilized anatomy knowledge of the clinician, and assessment of patient's response to intervention. Self-Skilled Nursing Management: 1: ways to breathe into the tight area; anatomy and some of her symptoms ; discussed emptying againand shifting side- side since R side tighter Skilled Intervention: Correct performance of home program was facilitated with verbal and tactile cueing. 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] 03/13/2025 8:30 AM EDT Appointment Procedures [address] [place] [address] [place] [address] [place] [address] History of colon cancer [Z85.038] 04/02/2025 1:00 PM EDT OT/PT/Speech Visit Physical Therapy [address] [place] [address] Therese Anthony PT [address] [place] [address] 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 Corona 08/23/25, labs 1 week prior documented as of this encounter Visit Diagnoses Diagnosis Muscle spasm- Primary Spasm of muscle documented in this encounter Care Teams Liquor Establishment Manager Relationship Specialty Start Date End Date Leon Colin [address] [place] [phone] PCP - General Family Medicine 03/16/23 Tapan Corona MD [address] [place] [address] Physician Hematology/Oncology 03/22/23 Naheed Elias PADesireeC [address] [place] [address] [place] [address] Physician Transportation Coordinator Hematology/Oncology 03/22/23 Maryuri Rodriguez LSW Assistant Plant Control Operator 07/21/23 documented as of this encounter
--- OUTSIDE RECORDS SUMMARY | 2025-02-20 13:20 | XMS_ITS | Encounter Summary ---
Author Organization [facility] Address [address] [place] [address] Care Team Providers Care Student Admissions Clerk Name Role Phone Leon Colin Brendon Primary Care Provider [phone] Tapan Corona MD Unavailable [phone] Naheed Elias PA-C Unavailable [phone] Maryuri Rodriguez Unavailable Unavailable Source Comments In the event this information is protected by the Federal Confidentiality of Alcohol and Drug AbusePatient Records regulations: The Federal rules restrict any use of the information to criminally investigate or prosecute any alcohol or drug abuse patient.[facility] Reason for Referral * Outpatient Procedure (Routine) - Authorized Specialty Diagnoses / Procedures Referred By Contac t Referred To Contact [facility] Diagnoses Encounter for follow-up surveillance of rectal cancer Procedures COLONOSCOPY SCREENING COLONOSCOPY FLX DX W/[place] [address] [place] [address] Phone: tel: fax: [facility] [address] [place] [address] [place] [address] Referral ID Status Reason Start Date Expiration Date Visits Requested Visits Authorized [id number] Authorized Auto-Generat ed Referral 02/20/2025 02/20/2026 1 1 Reason for Visit * Reason Comments Follow Up Low anterior resecti on syndrome Encounter Details Date Type Department Care Team (Late st Contact Info) Description 02/20/2025 1:20 PM EDT Office Visit Colorectal Surgery [address] [place] [address] [place] [address] [place] [address] Encounter for follow-up surveillance of rectal cancer (Primary Dx); Low anterior resection syndrome Social History Tobacco Use Types Packs/Day Years Used Date Smoking Tobacco: Never Passive Smoke Exposure: Past Smokeless Tobacco: Never Tobacco Cessation:Counseling Given: Not Answered Alcohol Use Standard Drinks/Week Comments Yes 0 (1 standard drink = 0.6 oz pur e alcohol) 2 times a month if that [facility] Utilities Answer Date Recorded In the past 12 months has e electric, gas, oil, or water company [...] place to sleep or slept in a retirement (including now)? No 11/09/2023 Comments No Sex and Gender Information Value Date Recorded Sex Assigned at Not on file Legal Sex Female 9:50 AM EST Gender Identity Not on file Sexual Orientation Not on file documented as of this encounter Last Filed Vital Signs Vital Sign Reading Time Taken Comments Blood Pressure 124/66 02/20/2025 1:08 PM EDT Pulse 67 02/20/2025 1:08 PM EDT Temperature - - Respiratory Rate - - Oxygen Saturation 98% 02/20/2025 1:08 PM EDT Inhaled Oxygen Concentration - - Weight 66.4 kg (146 lb 6.2 oz) 02/20/2025 1:08 P M EDT Height 162.6 cm (5' 4 ) 02/20/2025 1:08 PM EDT Body Mass Index 25.13 02/20/2025 1:08 PM EDT documented in this encounter Functional Status * Are you [...] documented in this encounter Progress Notes * Laisha Singer MD - 02/20/2025 1:20 PM EDT COLORECTAL SURGERY February 20, 2025 Cristina Kelley Chief Complaint: follow up/ low anterior resection syndrome History of Present Illness: Cristina Kelley is a 69 year old female who 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 She has a history of rectal cancer s/p STACY, LAR to pelvic floor with DLI 08/2023 and reversal on 11/08/23. She was last seen in the office on 10/31/24. Patient reports significant improvement after starting semaglutide and starting pelvic floor therapy. Currently having a BM daily to every other day, only having 1x per week of clustering that is manageable. She is better able to tell when she is about to have a BM. No episodes of incontinence recently. FI frequency: none FI severity: none Current meds: Semiglutide Prior A/P from 10/31/24: Cristina Kelley is a 69 year old female w/ T3cN+ rectal ca s/p STACY, LAR, DLI 08/2023 and subsequent ileostomy closure now w/ LARS refractory to medication. Manometry Pelvic floor PT SNS handout/bowel diary provided Anal Manometry on 11/05/24: Reason for testing: LARS Ileoanal pouch: No Anorectal Manometry Testing: Strength: Anorectal manometry was performed. Average Pressure Interpretation Rest: 21.4 mmHg This is below normal range. Normal range is 35-50 mmHg. Squeeze: 48.6 mmHg This is below normal range. Normal range is 75 - 100 mmHg. There is appropriate incremental change between resting and squeeze pressures which can indicate good pelvic floor movement with squeeze, however there is baseline weakness noted. Sensory: Sensation Volume First sensation : 60 mL / Normal Range: 40-80 mL First urge to defecate: 115 mL / Normal Range: 80-120 mL Maximum tolerable volume: 200 mL / Normal Range: 120-180 mL Recto-anal inhibitory reflex: Yes Balloon expulsion: No This exhibit normal rectal sensation with at least 2/3 sensory tests. A recto-anal inhibitory reflex (RAIR) was present. This is a normal reflex. Physical Therapy completed on 01/29/25. Colonoscopy 09/2024 w/ polyp removed piecemeal. Recs: repeat in [address] C/A/P 02/2025 no mets, [facility] PAST MEDICAL HISTORY Diagnosis Date Constipation Diverticulosis Malignant melanoma (HCC) Rectal cancer (HCC) PAST SURGICAL HISTORY Procedure Laterality Date COLONOSCOPY PAST SURGICAL HISTORY OF Right knee surgery PAST SURGICAL HISTORY OF skin lesion removed melanoma REMOVAL GALLBLADDER Current Outpatient Medications Medication Sig Dispense Refill LEXAPRO 10 mg tablet meloxicam (MOBIC) 15 mg tablet Take 15 mg by mouth once daily. ondansetron orally disintegrating (ZOFRAN ODT) 8 mg disintegrating tablet Take 1 tablet by mouth every 8 hours as needed for nausea/vomiting. 90 tablet 2 omeprazole (PRILOSEC) 40 mg capsule Take 40 mg by mouth once daily. oxybutynin ER (DITROPAN XL) 15 mg 24 hr Extended Rel Tab Take 15 mg by mouth. aspirin, enteric coated (ASPIRIN, ENTERIC COATED) 81 mg EC tablet Take 81 mg by mouth once daily. No current facility-administered [...] that Drug use: Never Physical Exam: BP 124/66 Pulse 67 Ht 162.6 cm (5' 4 ) Wt 66.4 kg (146 lb 6.2 oz) SpO2 98% BMI 25.13 kg/m?? General Appearance: Well appearing, alert, in no acute distress, well-hydrated, well nourished. 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 She has a history of rectal cancer s/p STACY, LAR to pelvic floor with DLI 08/2023 and reversal on 11/08/23. LARS is significantly improved after semaglutide and initiation of pelvic floor therapy. - Surveillance colonoscopy in March for piecemeal removal of polyp 09/2024 - Remaining surveillance per Dr. Corona - Continue bowel regimen and pelvic floor PT Medical Decision Making: Data Reviewed: Tests & Documents Reviewed/ordered: Review of prior notes from [facility], med onc, GI Review of prior operative reports Review of Pathology Review of Imaging: CT Abdomen, CT Pelvis, CT Chest Review of Labs: CEA Review of Procedures / Tests: Colonoscopy, manometry Additional testing or imaging to be ordered: colonoscopy I have discussed Cristina Kelley's treatment plan and/or results with the patient, will discuss withDr. Corona. I spent a total of 40 minutes on the date of the service which included preparing to see the patient, [id number] patient care, completing clinical documentation, obtaining and/or reviewing separately obtained history, performing a medically appropriate examination, counseling and educating the pat ient/family/caregiver, ordering medications, tests, or procedures, communicating with other HCPs (not separately reported), independently interpreting results (not separately reported), communicatingresults to the patient/family/caregiver, and care coordination (not separately reported). 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 Corona 08/23/25, labs 1 week prior Scheduled Orders Name Type Priority Associated Diagnoses Orde r Schedule COLONOSCOPY SCREENING Endoscopy Routine Encounter for follow-up surveillance of rectal cancer 1 Occurrences starting 02/20/2025 until 02/20/2026 documented as of this encounter Visit Diagnoses Diagnosis Encounter for follow-up surveillance of rectal cancer- Primary Unspecified follow-up examination Low anterior resection syndrome documented in this encounter Care Teams Student Admissions Clerk Relationship Specialty Start Date End Date Leon Colin [address] [place] [phone] PCP - General Family Medicine 03/16/23 Tapan Corona MD [address] [place] [address] Physician Hematology/Oncology 03/22/23 Naheed Elias PA-C [address] [facility] [place] [address] Physician Sr Risk Management Consultant Hematology/Oncology 03/22/23 Maryuri Rodriguez LSW Senior Data Warehouse Developer 07/21/23 documented as of this encounter
--- OUTSIDE RECORDS SUMMARY | 2025-02-20 14:00 | XMS_ITS | Encounter Summary ---
Author Organization [facility] Address [address] [place] [address] Care Team Providers Care Legal Investigator Name Role Phone Leon Colin Primary Care Provider [phone] Tapan Corona MD Unavailable [phone] Naheed Elias PA-C Unavailable [phone] Maryuri Rodriguez Unavailable Unavailable Source Comments In the event this information is protected by the Federal Confidentiality of Alcohol and Drug AbusePatient Records regulations: The Federal rules restrict any use of the information to criminally investigate or prosecute any alcohol or drug abuse patient.[facility] Reason for Visit * Reason Comments Established Patient Encounter Details Date Type Department Care Team (Latest Contact Info) Description 02/20/2025 2:00 PM EDT Visit (SP) Office Hematology [address] [place], [place] [id number] Tapan Corona MD [address] [place] [address] History of rectal cancer (Primary Dx) Social History Tobacco Use Types Packs/Day Years Used Date Smoking Tobacco: Never Passive Smoke Exposure: Past Smokeless Tobacco: Never Alcohol Use Standard Drinks/Week Comments Yes 0 (1 standard drink = 0.6 oz pur e alcohol) 2 times a month if that [facility] Utilities Answer Date Recorded In the [...] place to sleep or slept in a assisted (including now)? No 11/09/2023 Comments No Sex and Gender Information Value Date Recorded Sex Assigned at Not on file Legal Sex Female 9:50 AM EST Gender Identity Not on file Sexual Orientation Not on file documented as of this encounter Last Filed Vital Signs Vital Sign Reading Time Taken Comments Blood Pressure 121/78 02/20/2025 2:04 PM EDT Pulse 67 02/20/2025 2:04 PM EDT Temperature 37.4 C (99.4 F) 02/20/2025 2:04 PM EDT Respiratory Rate 18 02/20/2025 2:04 PM EDT Oxygen Saturation 99% 02/20/2025 2:04 PM EDT Inhaled Oxygen Concentration - - Weight 66.3 kg (146 lb 2.6 oz) 02/20/2025 2:04 P M EDT Height 162.6 cm (5' 4 ) 02/20/2025 2:04 PM EDT Body Mass Index 25.09 02/20/2025 2:04 PM EDT documented in this encounter Functional [...] Rush Cano RN documented in this encounter Patient Instructions * Patient Instructions* Fiordaliza Cortés LPN - 02/20/2025 2:20 PM EDT F/U with Dr. Corona 08/23/25, labs 1 week prior documented in this encounter Progress Notes * Tapan Corona MD - 02/20/2025 2:12 PM EDT Images from the original note were not included. PATIENT NAME: Cristina Kelley CLINIC NO.: [id number] ATTENDING PHYSICIAN: Tapan Corona MD DATE OF SERVICE: February 20, 2025 Some of the elements of this note have been copied from my previous progress note dated 09/03/2024. All the information has been reviewed carefully. Dear Dr. Colin here is an update on a follow up visit on female Cristina Kelley at the clinic February 20, 2025 Diagnosis: MRI staged T3c,N+M0- Adenocarcinoma of the [...] closure and Flex sig 5. Signatera 10/2023, 01/2024, 08/2024- Negative. 02/2025- Pending HPI: Cristina Kelley is a 69 year old year old female here for follow up. She states that with the semaglutide her bowels have been better as well. Denies any fevers and or chills. PAST MEDICAL [...] of hands/feet. No weakness. PHYSICAL EXAMINATION: BP 121/78 Pulse 67 Temp (Src) 99.4 (Temporal Artery) Resp 18 Ht 5' 4 (1.63m) Wt 146 lb 2.6 oz (66.3kg) SpO2 99% BMI 25.08 kg/(m^2). Wt 61.8 kg (136 lb 3.2 [...] : Deferred LABS: Glucose (mg/dL) Date Value 02/10/2025 103 Potassium (mmol/L) Date Value 02/10/2025 4.1 Sodium (mmol/L) Date Value 02/10/2025 141 Chloride (mmol/L) Date Value 02/10/2025 107 CO2 (mmol/L) Date Value 02/10/2025 25 Creatinine (mg/dL) Date Value 02/10/2025 0.67 BUN (mg/dL) Date Value 02/10/2025 14 Anion Gap (mmol/L) Date Value 02/10/2025 9 Calcium, Total (mg/dL) Date Value 02/10/2025 9.0 Protein, Total (g/dL) Date Value 02/10/2025 6.6 Albumin (g/dL) Date Value 02/10/2025 4.0 Bilirubin, Total (mg/dL) Date Value 02/10/2025 0.3 Alkaline Phosphatase (U/L) Date Value 02/10/2025 103 AST (U/L) Date Value 02/10/2025 16 ALT (U/L) Date Value 02/10/2025 28 WBC Date Value Ref Range Status 02/10/2025 6.05 3.70 - 11.00 k/uL Final RBC Date Value Ref Range Status 02/10/2025 3.83 (L) 3.90 - 5.20 m/uL Final Hemoglobin Date Value Ref Range Status 02/10/2025 11.1 (L) 11.5 - 15.5 g/dL Final Hematocrit Date Value Ref Range Status 02/10/2025 34.2 (L) 36.0 - 46.0 % Final MCV Date Value Ref Range Status 02/10/2025 89.3 80.0 - 100.0 fL Final MCH Date Value Ref Range Status 02/10/2025 29.0 26.0 - 34.0 pg Final MCHC Date Value Ref Range Status 02/10/2025 32.5 30.5 - 36.0 g/dL Final RDW-CV Date Value Ref Range Status 02/10/2025 13.5 11.5 - 15.0 % Final Platelet Count Date Value Ref Range Status 02/10/2025 266 150 - 400 k/uL Final MPV Date Value Ref Range Status 02/10/2025 8.5 (L) 9.0 - 12.7 fL Final Abs Neut Date Value Ref Range Status 02/10/2025 3.69 1.45 - 7.50 k/uL Final Lymphocytes % Date Value Ref Range Status 02/10/2025 25.1 % Final Abs Lymph Date Value Ref Range Status 02/10/2025 1.52 1.00 - 4.00 k/uL Final Monocytes % Date Value Ref Range Status 02/10/2025 8.4 % Final Abs [place] Date Value Ref Range Status 02/10/2025 0.51 <0.87 k/uL Final Abs Eosin Date Value Ref Range Status 02/10/2025 0.25 <0.46 k/uL Final Basophils % Date Value Ref Range Status 02/10/2025 0.7 % Final Abs Baso Date Value Ref Range Status 02/10/2025 0.04 <0.11 k/uL Final PATH: Colonoscopy 02/2023: [...] (Chapter 1, 8th Ed.) it is the managingphysician???s responsibility to establish the final pathologic stage [...] nodes: Yes. Suspicious Extramesorectal lymph nodes: No. CT Scan of the Chest and Abdomen and Pelvis 02/2025: 1. No thoracic metastatic disease. 1. No recurrent or metastatic disease within the abdomen/pelvis. 2. Since 11/06/2023, interval takedown of right lower quadrant ileostomy. Assessment and Plan: Cristina Kelley is a 69 year old year old female here for [...] complete Path CR. Signatera 10/2023 and 01/2024 and 08/2024 werenegative. 02/[address] 02/2025 without recurrence See back in 6 months and will repeat Signatera and labs and also CT Colonoscopy scheduled 03/13/2025 Thank you for the kind referral. If there are any questions and or concerns please do not hesitate to contact me at [phone]. Tapan Corona MD Hematology/Medical Oncology [facility] Ghassan Pasquale spent a total of 30 minutes on the date of the service which included preparing to see the patient, [id number] patient care, completing clinical documentation, obtaining and/or reviewing separately obtained history, performing a medically appropriate examination, counseling and educating the pat ient/family/caregiver, and ordering medications, tests, or procedures. 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] 03/13/2025 8:30 AM EDT Appointment Procedures [address] [facility] [place] [address] [place] [address] [place] [address] History of colon cancer [Z85.038] 04/02/2025 1:00 PM EDT OT/PT/Speech Visit Physical Therapy [address] [place] [address] Therese Anthony PT [address] [place] [address] 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 Corona 08/23/25, labs 1 week prior Scheduled Orders Name Type Priority Associated Diagnoses Orde r Schedule MISC SEND OUT TST 1 Lab Routine History of rectal cancer Expected: 08/23/2025 (Approximate), Expires: 11/22/2025 CARCINOEMBRYONIC ANTIGEN Lab Routine History of rectal cancer Expected: 08/23/2025 (Approximate), Expires: 11/22/2025 COMPLETE BLOOD COUNT AND DIFFERENTIAL Lab Routine History of rectal cancer Expected: 08/23/2025 (Approximate), Expires: 11/22/2025 COMPREHENSIVE METABOLIC PANEL Lab Routine History of rectal cancer Expected: 08/23/2025 (Approximate), Expires: 11/22/2025 documented as of this encounter Visit Diagnoses Diagnosis History of rectal cancer- Primary Personal history of malignant neoplasm of rectum, rectosigmoid junction, and anus documented in this encounter Care Teams Legal Investigator Relationship Specialty Start Date End Date Leon Colin [address] [place] [phone] PCP - General Family Medicine 03/16/23 Tapan Corona MD [address] [place] [address] Physician Hematology/Oncology 03/22/23 Naheed Elias PA-C [address] [place] [address] [place] [address] Physician Sed High School Teacher Hematology/Oncology 03/22/23 Maryuri Rodriguez LSW Flexo Folder Gluer Operator 07/21/23 documented as of this encounter
--- OUTSIDE RECORDS SUMMARY | 2025-03-03 08:01 | XMS_ITS | Encounter Summary ---
Author Organization [facility] Address [address] [place] [address] Care Team Providers Care Dull Coat Mill Operator Name Role Phone Leon Colin Primary Care Provider [phone] Colleen Solorio RN Unavailable [phone] Tapan Corona MD Unavailable [phone] Naheed Elias PA-C Unavailable [phone] Maryuri Rodriguez Unavailable Unavailable Source Comments In the event this information is protected by the Federal Confidentiality of Alcohol and Drug AbusePatient Records regulations: The Federal rules restrict any use of the information to criminally investigate or prosecute any alcohol or drug abuse patient.[facility] Encounter Details Date Type Department Care Team (Late st Contact Info) Description 07/19/2023 Patient Msg Gastroenterology [address] [place], [place] [id number] [place] [address] [place], [place] [phone] Sigmoidoscopy Prep Instructions Social History Tobacco Use [...] PM EDT OT/PT/Speech Visit Physical Therapy [address] [address] Therese Anthony, PT [address] [place] [address] 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] 03/13/2025 8:30 AM EDT Appointment Procedures [address] [place] [address] [place] [address] [place] [address] History of colon cancer [Z85.038] 04/02/2025 1:00 PM EDT OT/PT/Speech Visit Physical Therapy [address] [facility] [place] [address] Therese Anthony, PT [address] [place] [address] 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 Corona 08/23/25, labs 1 week prior documented as of this encounter Visit Diagnoses Not on filedocumented in this encounter Care Teams Dull Coat Mill Operator Relationship Specialty Start Date End Date Leon Colin [address] [place] [phone] PCP - General Family Medicine 03/16/23 Colleen Solorio RN [address] [place] [address] [place] [address] Specialty Junior Network Engineer Hematology/Oncology 03/22/23 02/07/24 Tapan Corona MD [address] [place] [address] Physician Hematology/Oncology 03/22/23 Naheed Elias, PA-C [address] [place] [address] [place] [address] Physician Escapement Maker Hematology/Oncology 03/22/23 Maryuri Rodriguez LSW Clamp Forklift Operator 07/21/23 documented as of this encounter
--- OUTSIDE RECORDS SUMMARY | 2025-03-03 08:01 | XMS_ITS | Clinical Summary ---
Author Organization [facility] Address [address] [place] [address] Phone Care Team Providers Care Laboratory Mechanic Helper Name Role Phone Leon Colin Primary Care Provider [phone] Allergies No known active allergies Medications amLODIPine-ger [...] tablet by mouth once daily. Active omega 7-xpt-eqh-fish oil (Fish OiL) 1,000 mg (120 mg-180 [...] topic Insurance MEDICARE PART A AND B [facility] MEDICARE SUPPLEMENT Care Teams Laboratory Mechanic Helper Relationship Specialty Start Date End Date Leon Colin DO PCP - General 10/05/22
--- OUTSIDE RECORDS SUMMARY | 2025-03-03 08:01 | XMS_ITS | Encounter Summary ---
Author Organization [facility] Address [address] [place] [address] Care Team Providers Care Flexo Folder Gluer Operator Name Role Phone Leon Colin Primary Care Provider [phone] Colleen Solorio RN Unavailable [phone] Tapan Corona MD Unavailable [phone] Naheed Elias PA-C Unavailable [phone] Maryuri Rodriguez Unavailable Unavailable Source Comments In the event this information is protected by the Federal Confidentiality of Alcohol and Drug AbusePatient Records regulations: The Federal rules restrict any use of the information to criminally investigate or prosecute any alcohol or drug abuse patient.[facility] Encounter Details Date Type Department Care Team (Late st Contact Info) Description 04/06/2023 Patient [facility] Procedure [address] [place] [address] Provider, Cctravis You are scheduled for a [...] PM EDT OT/PT/Speech Visit Physical Therapy [address] [place] [address] Therese Anthony, PT [address] [place] [address] 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] 03/13/2025 8:30 AM EDT Appointment Procedures [address] [place] [address] [place] [address] [place] [address] History of colon cancer [Z85.038] 04/02/2025 1:00 PM EDT OT/PT/Speech Visit Physical Therapy [address] [place] [address] Therese Anthony, PT [address] [place] [address] 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 Corona 08/23/25, labs 1 week prior documented as of this encounter Visit Diagnoses Not on filedocumented in this encounter Care Teams Flexo Folder Gluer Operator Relationship Specialty Start Date End Date Leon Colin [address] [place] [phone] PCP - General Family Medicine 03/16/23 Colleen Solorio RN [address] [place] [address] [place] [address] Specialty Wine And Spirits Clerk Hematology/Oncology 03/22/23 02/07/24 Tapan Corona MD [address] [place] [address] Physician Hematology/Oncology 03/22/23 Naheed Elias PADesireeC [address] [place] [address] [place] [address] Physician Milling Machine Operator Gear Hematology/Oncology 03/22/23 Maryuri Rodriguez LSW Criminal Justice Instructor 07/21/23 documented as of this encounter
--- OUTSIDE RECORDS SUMMARY | 2025-03-03 08:01 | XMS_ITS | Encounter Summary ---
Author Organization [facility] Address [facility] [place] [address] Care Team Providers Care Cooler Operator Name Role Phone Leon Colin Primary Care Provider [phone] Colleen Solorio RN Unavailable [phone] Tapan Corona MD Unavailable [phone] Naheed Elias PA-C Unavailable [phone] Maryuri Rodriguez Unavailable Unavailable Source Comments In the event this information is protected by the Federal Confidentiality of Alcohol and Drug AbusePatient Records regulations: The Federal rules restrict any use of the information to criminally investigate or prosecute any alcohol or drug abuse patient.[facility] Encounter Details Date Type Department Care Team (Late st Contact Info) Description 08/03/2023 Patient Msg Colorectal Surgery [address] [place] [address] Provider, Ccf surgery with Dr [...] OT/PT/Speech Visit Physical Therapy [address] [place] [address] Therese Anthony, PT [address] [place], [place] [phone] 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] 03/13/2025 8:30 AM EDT Appointment Procedures [address] [place] [address] [place] [address] [address] [place], [place] [address] History of colon cancer [Z85.038] 04/02/2025 1:00 PM EDT OT/PT/Speech Visit Physical Therapy [address] [place] [address] Therese Anthony, PT [address] [place], [place] [address] 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 Corona 08/23/25, labs 1 week prior documented as of this encounter Visit Diagnoses Not on filedocumented in this encounter Care Teams Cooler Operator Relationship Specialty Start Date End Date Leon Colin [address] [place] [phone] PCP - General Family Medicine 03/16/23 Colleen Solorio RN [address] [place] [address] [place] [address] Specialty Laborer Airport Maintenance Hematology/Oncology 03/22/23 02/07/24 Tapan Corona MD [address] [place] [address] Physician Hematology/Oncology 03/22/23 Naheed Elias, PA-C [address] [place] [address] [place] [address] Physician Director Sales Training Hematology/Oncology 03/22/23 Maryuri Rodriguez LSW Physician Relations Representative 07/21/23 documented as of this encounter
--- OUTSIDE RECORDS SUMMARY | 2025-03-03 08:01 | XMS_ITS | Encounter Summary ---
Author Organization [facility] Address [address] [place] [address] Care Team Providers Care Jumpbasting Collar Baster Name Role Phone Leon Colin Primary Care Provider [phone] Colleen Solorio RN Unavailable [phone] Tapan Corona MD Unavailable [phone] Naheed Elias PA-C Unavailable [phone] Maryuri Rodriguez Unavailable Unavailable Source Comments In the event this information is protected by the Federal Confidentiality of Alcohol and Drug AbusePatient Records regulations: The Federal rules restrict any use of the information to criminally investigate or prosecute any alcohol or drug abuse patient.[facility] Encounter Details Date Type Department Care Team [...] alcohol) 2 times a month if that [facility] Utilities Answer Date Recorded In [...] place to sleep or slept in a group home (including now)? 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 Corona 08/23/25, labs 1 week prior documented as of this encounter Visit Diagnoses Not on filedocumented in this encounter Care Teams Jumpbasting Collar Baster Relationship Specialty Start Date End Date Leon Colin [address] [place] [phone] PCP - General Family Medicine 03/16/23 Colleen Solorio, RN [address] [place] [address] [place] [address] Specialty Steel Worker Hematology/Oncology 03/22/23 02/07/24 Tapan Corona MD [address] [place] [address] Physician Hematology/Oncology 03/22/23 Naheed Elias PA-C [address] [place] [address] [place] [address] Physician Community Relations Advisor Hematology/Oncology 03/22/23 Maryuri Rodriguez LSW Hydro Generation Manager 07/21/23 documented as of this encounter
--- OUTSIDE RECORDS SUMMARY | 2025-03-03 08:01 | XMS_ITS | Encounter Summary ---
Author Organization [facility] Address [address] [place] [address] Care Team Providers Care Sheet Sorter Name Role Phone Charles Bazzi Primary Care Provider [phone] Encounter Details Date Type Department Care Team (Late st Contact Info) Description 04/23/2024 Clinisync Result Encounter [facility] External Department Unsolicited Jairon Pisano DO [address] [facility] [address] [place], [place] [phone] Social History Tobacco Use Types Packs/Day Years [...] PM EDT Narrative 04/23/2024 1:54 PM EDT [address] [address] Mammography Report Signed Patient: CRISTINA GILL MR#: [id number] : 1955 Acct:[id number] Age/Sex: 68 / F ADM Date: 04/23/24 Loc: MAMMO Attending Dr: Jairon Pisano D.O. Ordering Physician: Jairon Pisano D.O. Results: Date of Service: 04/23/24 Follow Up: Procedure(s): MM tomosynthesis screening BI Accession Number(s): [id number] cc: Jairon Pisano D.O.; CHARLES BAZZI Patient Name: CRISTINA GILL MR#: [id number] : 1955 Exam Date: 04/23/2024 Ordering Doctor: [...] Treatments None Family Cancers None LOCATION: [facility] BREAST COMPOSITION: There are scattered areas of [...] Signed By: 04/23/24 1354 DD/ 1353 TD/TT: Security Officer: Procedure Note Radiology, Radiologist, - 04/23/2024 [place] [address] Mammography Report Signed Patient: CRISTINA GILL CMR#: [id number] : 1955cct:[id number] Age/Sex: 68 / FADM Date: 04/23/24 Loc: MAMMO Attending Dr: Jairon Pisano D.O. Ordering Physician: Jairon Pisano D.O.Results: Date of Service: 04/23/24Follow Up: Procedure(s): MM tomosynthesis screening BI Accession Number(s): [id number] cc: Jairon Pisano D.O.; CHARLES BAZZI Patient Name: CRISTINA GILL MR#: [id number] : 1955 Exam Date: 04/23/2024 Ordering Doctor: [...] Treatments None Family Cancers None LOCATION: [facility] BREAST COMPOSITION: There are scattered areas of [...] M.D. Signed By:04/23/24 1354 DD/ 1353 TD/TT: Security Officer: us Jairon Pisano DO [facility] Final Result documented in this encounter Visit Diagnoses Not on filedocumented in this encounter Care Teams Sheet Sorter Relationship Specialty Start Date End Date Charles Bazzi DO PCP - General 12/13/22 documented as of this encounter
--- OUTSIDE RECORDS SUMMARY | 2025-03-03 08:01 | XMS_ITS ---
Author Organization [facility] Address [address] [place] [address] Care Team Providers Care Assembler Fluorescent Lights Name Role Phone Leon Coliner Primary Care Provider [phone] Tapan Corona MD Unavailable [phone] Naheed Elias PA-C Unavailable [phone] Maryuri Rodriguez Unavailable Unavailable Active Problems Problem [...] myocardial fusion study which done at the [facility] and was able to retrieve the [...]
--- OUTSIDE RECORDS SUMMARY | 2025-03-03 08:01 | XMS_ITS | Encounter Summary ---
Author Organization [facility] Address [facility] [place] [address] Care Team Providers Care Hydraulic Dredge Operator Name Role Phone Leon Colin Primary Care Provider [phone] Colleen Solorio RN Unavailable [phone] Tapan Corona MD Unavailable [phone] Naheed Elias PA-C Unavailable [phone] Maryuri Rodriguez Unavailable Unavailable Source Comments In the event this information is protected by the Federal Confidentiality of Alcohol and Drug AbusePatient Records regulations: The Federal rules restrict any use of the information to criminally investigate or prosecute any alcohol or drug abuse patient.[facility] Encounter Details Date Type Department Care Team (Late st Contact Info) Description 03/15/2023 GI Preprocedure Call [facility] Surgery [address] [place], [place] [id number] [place] [address] [place], [place] [id number] Social History Tobacco Use Types Packs/Day Years [...] PM EDT OT/PT/Speech Visit Physical Therapy [address] [place] [address] Therese Anthony, PT [address] [place] [address] 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] 03/13/2025 8:30 AM EDT Appointment Procedures [address] [place] [address] [place] [address] [place] [address] History of colon cancer [Z85.038] 04/02/2025 1:00 PM EDT OT/PT/Speech Visit Physical Therapy [address] [place] [address] Therese Anthony, PT [address] [place] [address] 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 Corona 08/23/25, labs 1 week prior documented as of this encounter Visit Diagnoses Not on filedocumented in this encounter Care Teams Hydraulic Dredge Operator Relationship Specialty Start Date End Date Leon Colin [address] [place] [phone] PCP - General Family Medicine 03/16/23 Colleen Solorio RN [address] [place] [address] [place] [address] Specialty Habitat Management Coordinator Hematology/Oncology 03/22/23 02/07/24 Tapan Corona MD [address] [place] [address] Physician Hematology/Oncology 03/22/23 Naheed Elias, PA-C [address] [place] [address] [place] [address] Physician Box Gluer Hematology/Oncology 03/22/23 Maryuri Rodriguez LSW Tie Worker 07/21/23 documented as of this encounter
--- OUTSIDE RECORDS SUMMARY | 2025-03-03 08:01 | XMS_ITS | Encounter Summary ---
Author Organization [facility] Address [address] [place] [address] Care Team Providers Care Receiving Worker Name Role Phone Leon Colin Brendon Primary Care Provider [phone] Tapan Corona MD Unavailable [phone] Naheed Elias PA-C Unavailable [phone] Maryuri Rodriguez Unavailable Unavailable Source Comments In the event this information is protected by the Federal Confidentiality of Alcohol and Drug AbusePatient Records regulations: The Federal rules restrict any use of the information to criminally investigate or prosecute any alcohol or drug abuse patient.[facility] Encounter Details Date Type Department Care Team (Latest Contact Info) Description 02/20/2025 Travel Social History Tobacco Use Types Packs/Day Years Used Date Smoking Tobacco: Never Passive Smoke Exposure: Past Smokeless Tobacco: Never Alcohol Use Standard Drinks/Week Comments Yes 0 (1 standard drink = 0.6 oz pur e alcohol) 2 times a month if that [facility] Utilities Answer Date Recorded In the past 12 months has [employer], gas, oil, or water [employer] threatened to shut off services in your [...] place to sleep or slept in a penitentiary (including now)? 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 Corona 08/23/25, labs 1 week prior documented as of this encounter Visit Diagnoses Not on filedocumented in this encounter Care Teams Receiving Worker Relationship Specialty Start Date End Date Leon Colin [address] [place] [phone] PCP - General Family Medicine 03/16/23 Tapan Corona MD [address] [place] [address] Physician Hematology/Oncology 03/22/23 Naheed Elias PADesireeC [address] [place] [address] Physician Stamping Die Maker Bench Hematology/Oncology 03/22/23 Maryuri Rodriguez LSW Wax Bleacher 07/21/23 documented as of this encounter
--- OUTSIDE RECORDS SUMMARY | 2025-03-03 08:01 | XMS_ITS | Encounter Summary ---
Author Organization [facility] Address [address] [place] [address] Care Team Providers Care Marketing Planning Manager Name Role Phone Leon Colin DO Primary Care Provider [phone] Encounter Details Date Type Department Care Team (Late st Contact Info) Description 12/13/2022 Abstract [facility] [address] [place] [phone] Zeb Valle DO [address] [place] [address] Social History Tobacco Use Types Packs/Day Years [...] on filedocumented in this encounter Care Teams Marketing Planning Manager Relationship Specialty Start Date End Date Leon Colin DO PCP - General 12/13/22 documented as of this encounter
--- OUTSIDE RECORDS SUMMARY | 2025-03-03 08:01 | XMS_ITS | Clinical Summary ---
Author Organization [facility] Address [address] [place] [address] Care Team Providers Care Negotiator Sales Name Role Phone Leon Coliner Primary Care Provider Tapan Corona MD Unavailable [phone] Naheed Elias PA-C Unavailable [phone] Maryuri Rodriguez Unavailable Unavailable Allergies No known active allergies Medications oxybutynin ER (DITROPAN XL) 15 mg 24 hr Extended Rel Tab Take 15 mg by mouth. 11/12/19 23 Active aspirin, enteric coated (ASPIRIN, ENTERIC COATED) 81 mg EC tablet Take 81 mg by mouth once daily. Active omeprazole (PRILOSEC) 40 mg capsule Take 40 mg by mouth once daily. 07/09/20 18 Active ondansetron orally disintegrating (ZOFRAN ODT) 8 mg disintegrating tablet Take 1 tablet by mouth every 8 hours as needed for nausea/vomiting. 90 tablet 2 4 9:47 AM EDT 02/06/20 24 Active LEXAPRO 10 mg tablet 06/13/20 24 Active meloxicam (MOBIC) 15 mg tablet Take 15 mg by mouth once daily. Active INV SEMAGLUTIDE 0.25 MG/0.5 ML INJECTION (IRB 24-915) Inject 0.25 mg subcutaneously one time a week. For Investigational Drug Use Only. PI: Ruthann Cisneros MD. Active Active Problems Problem Noted Date Diagnosed [...] study which done at the [facility] and was able to retrieve the result and it was normal and I have reviewed that with the patient. GERD (gastroesophageal reflux disease) 08/09/2023 Assessment & Plan (08/11/2023 12:41 PM [...] presents for surgical intervention Essential hypertension 04/25/2017 4 Assessment & Plan (08/11/2023 12:40 PM EST): Assessment: stable and compliant with current medications Last 5 Encounter BP Readings: Date: BP: 08/11/2023 105/75 08/07/2023 104/62 07/27/2023 104/68 07/27/2023 145/68 07/21/2023 122/66 Personal history of malignant melanoma of skin 1 Osteoarthrosis, unspecified whether generalized or localized, ankle and foot 12/20/2005 Resolved Problems Problem Noted Date Diagnosed Date Resolved Date Small bowel obstruction 08/31/202308/11 Encounter for ostomy care education 08/26/2023 08/29/2023 Encounters Date Type Department Care Team Description 02/27/2025 [place] [address] Provider, [facility] Colonoscopy Shellfish Dredge Operator Enrollment 02/20/2025 2:00 PM EDT Visit (SP) Office Hematology [address] [place] [address] Tapan Corona MD History of rectal cancer (Primary Dx) 02/20/2025 1:20 PM EDT Office Visit Colorectal Surgery [address] [place] [address] Laisha Singer MD Encounter for follow-up surveillance of rectal cancer (Primary Dx); Low anterior resection syndrome 02/20/2025 Travel 02/20/2025 Education Colorectal Surgery [address] [place] [address] Russel Lindquist, KAYA history of colon cancer 02/19/2025 1:00 PM EDT OT/PT/Speech Visit Physical Therapy [address] [place] [address] Therese Anthony, PT Muscle spasm (Primary Dx) 02/11/2025 Results Follow-Up Hematology [address] [place] [address] Tapan Corona MD 02/11/2025 Orders Only Hematology [address] [place] [address] Tapan Corona MD History of rectal cancer (Primary Dx); Rectal cancer (HCC) 02/10/2025 12:41 PM EDT - 02/10/2025 11:59 PM EDT Hospital Encounter Radiology Pet CT [address] [place] [address] History of rectal cancer [Z85.048] Discharge Disposition: Home 02/10/2025 Telephone Hematology/Oncolog y [address] [place] [address] Tapan Corona MD Orders 01/29/2025 Plan of Care Documentation Physical Therapy [address] [place] [address] 01/28/2025 11:30 AM EDT OT/PT/Speech Visit Physical Therapy [address] [place] [address] Therese Anthony, PT Muscle spasm (Primary Dx); Low anterior resection syndrome 01/28/2025 Travel 01/21/2025 Travel 01/03/2025 Patient Msg Colorectal Surgery [address] [place] [address] Laisha Singer MD survey on LARS for Dr Singer 01/03/2025 Telephone Colorectal Surgery [address] [place] [address] Laisha Singer MD Returning Patient's Call 01/02/2025 Get Medical Advice Colorectal Surgery [address] [place] [address] Laisha Singer MD Diarrhea from Last 3 Months Immunizations Immunization Administration Dates Next Due COVID-19 original vaccine, f ull dose, monovalent (MODERNA) 09/30/2020 COVID-19 vaccine, age 12+ yr , bivalent (MODERNA) 09/29/2020 influenza (IIV3) vaccine, tr ivalent (AFLURIA, FLULAVAL, FLUVIRIN, FLUZONE) 04/09/2017 influenza (IIV3) vaccine, tr ivalent, PF (AFLURIA, FLUARIX, FLULAVAL, FLUVIRIN, FLUZONE) 04/09/2014 influenza (IIV4) vaccine, ag e 6 mo - 64 yr, quadrivalent, PF (AFLURIA, FLUARIX, FLULAVAL, FLUZONE) 05/07/2019,04/18/2017 influenza (IIV4) vaccine, qu adrivalent (AFLURIA, FLULAVAL, FLUZONE) 05/07/2019,04/18/2017 influenza (LAIV) vaccine, na patrick, unspecified formulation 05/07/2019 influenza (ccIIV3) vaccine, age 6+ mo, trivalent, PF (FLUCELVAX) 04/09/2014 influenza vaccine, split virus 07/13/2013 influenza vaccine, unspecified formulation 07/13 pneumococcal polysaccharide (PPV23) vaccine, 23 valent (PNEUMOVAX 23) 04/09/2015,04/09/2014,07/25/2013 zoster (RZV) vaccine, recomb inant (SHINGRIX) 08/08/2021,02/26/2021 zoster (ZVL) vaccine, live (ZOSTAVAX) 11/04/2013 Family History Medical History Relation Comments Coronary Artery Disease Father Emphysema Father Heart disease Father Hyperlipidemia Father Hypertension Father Hypertension Mother Lung Cancer Mother Relation Status Comments Father Mother Social History Tobacco Use Types Packs/Day Years Used Date Smoking Tobacco: Never Passive Smoke Exposure: Past Smokeless Tobacco: Never Tobacco Cessation:Counseling Given: Not Answered Alcohol Use Standard Drinks/Week Comments Yes 0 (1 standard drink = 0.6 oz pur e alcohol) 2 times a month if that [facility] Utilities Answer Date Recorded In the past 12 months has [employer], [employer], or water [employer] threatened to shut off services in your [...] place to sleep or slept in a mcfp (including now)? 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] 03/13/2025 8:30 AM EDT Appointment Procedures [address] [place] [address] [place] [address] [place] [address] History of colon cancer [Z85.038] 04/02/2025 1:00 PM EDT OT/PT/Speech Visit Physical Therapy [address] [place] [address] Therese Anthony, PT [address] [place] [address] 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 Corona 08/23/25, labs 1 week prior Health Maintenance Due Date Last Done Comments Annual PCP Team Chronic Dise ase Visit 1971 Hepatitis C Screening 1971 DTaP,Tdap,Td Vaccine (1 - Tdap) 1972 CT Colonography 1998 Cologuard (FIT-DNA) 1998 Colonoscopy 1998 Fecal Occult Blood 1998 Lipid Screening 1998 Pneumococcal Vaccine: 50+ (2 of 2 - PCV) 04/09/2016 04/09/2015, 04/09/2014, 07/25/2013 Medicare Annual Wellness Visit 09/07/2018 Mammogram Screening 09/22/2019 09/21/2018, 9 Advance Directive Discussion 07/10/2024 Influenza Vaccine (#1) 2025 , 05/07/2019, 05/07/2019, Additional history exists Diabetes Screening 02/11/2028 02/10/2025, 0 08/19/2024, 05/08/2024, Additional history exists Colorectal Cancer Screening 07/27/2028 Sigmoidoscopy 07/27/2028 07/27/2023, 05/12, 03/16/2023 RSV Vaccine (1 - 1-dose 75+ series) 2028 Shingrix Vaccine Completed 08/08/2021, , 11/04/2013 Bone Density Screening Completed 11/03/2022 Goals Goal Patient Goal Type Associated Problems Recent Progress Patient-Stated? Author Colonoscopy Shellfish Dredge Operator Care Plan Colonoscopy Shellfish Dredge Operator No User, Mychart Procedures Procedure Name Priority Date/Time Associated Diagnosis Comments MISC SEND OUT TST 1 Routine 02/10/2025 2 :29 PM EDT Rectal cancer (HCC) CT CHEST W IVCON Routine 02/10/2025 1:51 PM EDT History of rectal cancer Rectal cancer (HCC) CT ABD/PEL W IVCON Routine 02/10/2025 1: 51 PM EDT History of rectal cancer Rectal cancer (HCC) CBC + DIFF Routine 02/10/2025 12:42 PM EDT History of rectal cancer Rectal cancer (HCC) COMPREHENSIVE METABOLIC PANEL Routine 02/10/2025 12:42 PM EDT History of rectal cancer Rectal cancer (HCC) CEA BLD Routine 02/10/2025 12:42 PM EDT History of rectal cancer Rectal cancer (HCC) PT ED PATIENT INFORMATION 01/21/2025 SIGMOIDOSCOPY Routine 07/27/2023 2:25 PM EST Rectal cancer (HCC) from Last 3 Months or Most Recently Relevant to Health Maintenance Results * [facility] 1 (02/10/2025 2:29 PM EDT) Test 1 Signatera 03/02/2025 10:09 AM EDT [facility] Test Results 1 View results in Scanned Documents link when available 03/02/2025 10:09 AM EDT NON-INTERFACE D REF LABS Referral Lab 1 Neel 03/02/2025 10:09 AM EDT [facility] Blood BLOOD SPECIMEN / Unknown 02/10/2025 2:29 PM EDT 02/10/2025 2:29 PM EDT us G Shan Aguilar MD LABORATORY Final Resul t NON-INTERFACED REF LABS [facility] [address] [place] [address], [place] * CT ABD/PEL W IVCON (02/10/2025 1:51 [...] any questions regarding this interpretation, please call [phone]. If you are unable to reach us at the number above, please feel free to contact [facility] at [phone]. Narrative 02/11/2025 11:27 AM EDT * * *Final Report* * * DATE OF EXAM: Feb 10 2025 1:51PM [facility] 0530 - CT ABD/PEL W IVCON / [...] images: No additional findings. Procedure Note Provider, [facility] Imaging Debary - 02/11/2025 * * *Final Report* * * DATE OF EXAM: Feb 10 2025 1:51PM [facility] 0530 - CT ABD/PEL W IVCON / [...] any questions regarding this interpretation, please call [phone]. If you are unable to reach us at the number above, please feel free to contact [facility] at [phone]. us Tapan Corona MD CT-[facility] Final Result * CT CHEST W IVCON (02/10/2025 1:51 [...] any questions regarding this interpretation, please call [phone]. If you are unable to reach us at the number above, please feel free to contact [facility] at [phone]. Narrative 02/11/2025 11:26 AM EDT * * *Final Report* * * DATE OF EXAM: Feb 10 2025 1:51PM [facility] 0539 - CT CHEST W IVCON / [...] images: No additional findings. Procedure Note Provider, [facility] Imaging Debary - 02/11/2025 * * *Final Report* * * DATE OF EXAM: Feb 10 2025 1:51PM [facility] 0539 - CT CHEST W IVCON / [...] any questions regarding this interpretation, please call [phone]. If you are unable to reach us at the number above, please feel free to contact [facility] at [phone]. us Tapan Corona MD CT-[facility] Final Result * (ABNORMAL) COMPREHENSIVE METABOLIC PANEL (02/10/2025 12:42 PM EDT) Pathologist [facility] Protein, Total 6.6 6.3 - 8.0 g/dL 02/10/2025 1:17 PM EDT [facility] Albumin 4.0 3.9 - 4.9 g/dL 02/10/2025 1:17 PM EDT [facility] Calcium, Total 9.0 8.5 - 10.2 mg/dL 02/10/2025 1:17 PM T [facility] Bilirubin, Total 0.3 0.2 - 1.3 mg/dL 02/10/2025 1:17 PM EDT [facility] Alkaline Phosphatase 103 34 - 123 U/L 02/10/2025 1:17 PM [facility] AST 16 13 - 35 U/L 02/10/2025 1:17 PM [facility] ALT 28 7 - 38 U/L 02/10/2025 1:17 PM [facility] Glucose 103(H) 74 - 99 mg/dL 02/10/2025 1:17 PM [facility] Comment: The [place] Diabetes Association (ADA) provides guidance for cutoff [...] Standards of Medical Care in Diabetes 2016, [place] [employer]. Diabetes Care. 2016.39(Suppl 1). BUN 14 7 - 21 mg/dL 02/10/2025 1:17 PM T [facility] Creatinine 0.67 0.58 - 0.96 mg/dL 02/10/2025 1:17 PM T [facility] Sodium 141 136 - 144 mmol/L 02/10/2025 1:17 PM [facility] Potassium 4.1 3.7 - 5.1 mmol/L 02/10/2025 1:17 PM EDT [facility] Chloride 107 98 - 107 mmol/L 02/10/2025 1:17 PM EDT [facility] CO2 25 22 - 30 mmol/L 02/10/2025 1:17 PM EDT [facility] Anion Gap 9 8 - 15 mmol/L 02/10/2025 1:17 PM EDT [facility] Estimated Glomerular Filtration Rate 94 >=60 mL/min/1. 73m 02/10/2025 1:17 PM EDT [facility] Comment:Estimated Glomerular Filtration Rate (eGFR) [...] 12:42 PM EDT 02/10/2025 12:52 PM EDT Tapan Corona MD LABORATORY Final Result [facility] [address] [place] [address] * (ABNORMAL) CARCINOEMBRYONIC ANTIGEN (02/10/2025 12:42 PM EDT) CEA 4.1(H) <=2.9 ng/mL 02/11/2025 9:59 AM EDT [facility] Comment: Carcinoembryonic antigen test is used as an aid in monitoring response to treatment or recurrence in patients with established colorectal, breast, lung, prostatic, pancreatic, and ovarian carcinomas. Clinical correlation is required. The Carcinoembryonic antigen test was performed using the [employer]et Unicel DXI paramagnetic particle chemiluminescent immunoassay method. Results obtained with different assay methods or kits cannot be used interchangeably. Blood BLOOD SPECIMEN / Unknown Venipuncture / Unknown 02/10/2025 12:42 PM EDT 02/10/2025 12:52 PM EDT us Tapan Corona MD LABORATORY Final Result [facility] [address] [facility] [address] [place] [address], [place] * (ABNORMAL) COMPLETE BLOOD COUNT AND DIFFERENTIAL (02/10/2025 12:42 PM EDT) WBC 6.05 3.70 - 11.00 k/uL 02/10/2025 12:56 PM EDT [facility] RBC 3.83(L) 3.90 - 5.20 m/uL 02/10/2025 12:56 PM EDT [facility] Hemoglobin 11.1(L) 11.5 - 15.5 g/dL 02/10/2025 12:56 PM EDT [facility] Hematocrit 34.2(L) 36.0 - 46.0 % 02/10/2025 12:56 PM EDT [facility] MCV 89.3 80.0 - 100.0 fL 02/10/2025 12:56 PM EDT [facility] MCH 29.0 26.0 - 34.0 pg 02/10/2025 12:56 PM EDT [facility] MCHC 32.5 30.5 - 36.0 g/dL 02/10/2025 12:56 PM EDT [facility] RDW-CV 13.5 11.5 - 15.0 % 02/10/2025 12:56 PM EDT [facility] Platelet Count 266 150 - 400 k/uL 02/10/2025 12:56 PM EDT [facility] MPV 8.5(L) 9.0 - 12.7 fL 02/10/2025 12:56 PM EDT [facility] Neutrophils % 61.0 % 02/10/2025 12:56 PM EDT [facility] Abs Neut 3.69 1.45 - 7.50 k/uL 02/10/2025 12:56 PM EDT [facility] Lymphocytes % 25.1 % 02/10/2025 12:56 PM EDT [facility] Abs Lymph 1.52 1.00 - 4.00 k/uL 02/10/2025 12:56 PM EDT [facility] Monocytes % 8.4 % 02/10/2025 12:56 PM EDT [facility] Abs Hood 0.51 <0.87 k/uL 02/10/2025 12:56 PM EDT [facility] Eosinophils % 4.1 % 02/10/2025 12:56 PM EDT [facility] Abs Eosin 0.25 <0.46 k/uL 02/10/2025 12:56 PM EDT [facility] Basophils % 0.7 % 02/10/2025 12:56 PM EDT [facility] Abs Baso 0.04 <0.11 k/uL 02/10/2025 12:56 PM EDT [facility] Immature Granulocytes % 0.7 % 02/10/2025 12:56 PM EDT [facility] Abs Immature Gran 0.04 <0.10 k/uL 02/10/2025 12:56 PM EDT [facility] NRBC 0.0 /100 WBC 02/10/2025 12:56 PM EDT [facility] Absolute nRBC <0.01 <0.01 k/uL 02/10/2025 12:56 PM EDT [facility] Diff Type Auto 02/10/2025 12:56 PM EDT [facility] Blood BLOOD SPECIMEN / Unknown Venipuncture / Unknown 02/10/2025 12:42 PM EDT 02/10/2025 12:52 PM EDT us Tapan Corona MD LABORATORY Final Result [facility] [address] [place] [address] * PT ED PATIENT INFORMATION (01/21/2025) 01/21/2025 Narrative [facility] - 02/21/2025 Provider SONIDO your patient CRISTINA KELLEY has not started their Camille program, time has . Camille program: PATIENT SAFETY INSTRUCTIONS FOR HEALTHCARE SETTINGS us Laisha Singer MD [facility] Final Result [facility] * SIGMOIDOSCOPY (07/27/2023 2:25 PM EST) Anatomical Region Laterality Modality Other 07/27/2023 2:08 PM EST Narrative 07/27/2023 2:31 PM EST [facility] Gastrointestinal Endoscopy Patient Name: Cristina Kelley Procedure Date: 07/27/2023 2:08 PM Date of : 1955 Admit Type: Outpatient Age: 67 Room: [place] [address] Gender: Female Note Status: Finalized Attending MD: Laisha Singer MD, [id number] Procedure: Flexible Sigmoidoscopy Indications: Personal history of [...] to home. Procedure Code(s): --- Professional --- 93539, Sigmoidoscopy, flexible; diagnostic, including collection of specimen(s) by brushing or washing, when performed (separate procedure) Diagnosis Code(s): --- Professional --- K62.6, Ulcer of anus and rectum Z85.048, Personal history of other malignant neoplasm of rectum, rectosigmoid junction, and anus Z01.818, Encounter for other preprocedural examination CPT copyright 2020 [place] [employer]. All rights reserved. The codes documented in this report are preliminary and upon agricultural engineering technologist review may be revised to meet current compliance requirements. Attending Participation: I personally performed the entire procedure. Scope In: 2:18:06 PM Scope Out: 2:22:56 PM MD Laisha Quinteros MD 07/27/2023 2:28:08 PM This report has been signed electronically by Laisha Singer MD Number of Addenda: 0 Note Initiated On: 07/27/2023 2:08 PM Estimated Blood Loss: Estimated blood loss: none. Laisha Singer MD DIGESTIVE DISEASE Final Result from Last 3 Months or Most Recently Relevant to Health Maintenance Additional Health Concerns Active Problems Noted Date Diagnosed Date Colonoscopy Shellfish Dredge Operator 02/27/2025 [place] [address] MMO MEDICARE SUPPLEMENT Care Teams Negotiator Sales Relationship Specialty Start Date End Date Leon Colin [address] [place] [phone] PCP - General Family Medicine 03/16/23 Tapan Corona MD [address] [facility] [place] [address] Physician Hematology/Oncology 03/22/23 Naheed Elias PA-C [address] [place] [address] Physician Spring Salvage Worker Hematology/Oncology 03/22/23 Maryuri Rodriguez LSW Mva Operator 07/21/23
--- OUTSIDE RECORDS SUMMARY | 2025-03-03 08:01 | XMS_ITS | Encounter Summary ---
Author Organization [facility] Address [address] [facility] [place] [address] Care Team Providers Care Production Expediter Name Role Phone Leon Colin DO Primary Care Provider [phone] Encounter Details Date Type Department Care Team (Late st Contact Info) Description 02/23/2024 Abstract [facility] [address] [place] [address] Nathalie Vargas LPN [address] [phone] Social History Tobacco Use Types Packs/Day Years [...] on filedocumented in this encounter Care Teams Production Expediter Relationship Specialty Start Date End Date Leon Colin DO PCP - General 12/13/22 documented as of this encounter
--- OUTSIDE RECORDS SUMMARY | 2025-03-03 08:01 | XMS_ITS | Encounter Summary ---
Author Organization [facility] Address [address] [place] [address] Care Team Providers Care Livestock Nutritionist Name Role Phone Leon Colin DO Primary Care Provider [phone] Encounter Details Date Type Department Care Team (Late st Contact Info) Description 01/17/2023 Abstract [facility] Physical Therapy [address] [facility] [address] [place] [id number] Jose Carlos Kennedy, PT Social History Tobacco [...] on filedocumented in this encounter Care Teams Livestock Nutritionist Relationship Specialty Start Date End Date Leon Colin DO PCP - General 12/13/22 documented as of this encounter
--- OUTSIDE RECORDS SUMMARY | 2025-03-03 08:01 | XMS_ITS | Encounter Summary ---
Author Organization [facility] Address [address] [facility] [place] [address] Care Team Providers Care Lock Up Worker Name Role Phone Leon Colin DO Primary Care Provider [phone] Encounter Details Date Type Department Care Team (Late st Contact Info) Description 02/26/2025 Abstract [facility] [address] [place] [phone] Jairon Pisano DO [address] Leyda Christie, [facility] Social History Tobacco Use Types Packs/Day Years [...] on filedocumented in this encounter Care Teams Lock Up Worker Relationship Specialty Start Date End Date Leon Colin DO PCP - General 12/13/22 documented as of this encounter
--- OUTSIDE RECORDS SUMMARY | 2025-03-03 08:01 | XMS_ITS | Encounter Summary ---
Author Organization [facility] Address [address] [place] [address] Care Team Providers Care Shopper Marketing Manager Name Role Phone Dixie Leon Olivas Primary Care Provider [phone] Tapan Corona MD Unavailable [phone] Naheed Elias PA-C Unavailable [phone] Maryuri Rodriguez Unavailable Unavailable Source Comments In the event this information is protected by the Federal Confidentiality of Alcohol and Drug AbusePatient Records regulations: The Federal rules restrict any use of the information to criminally investigate or prosecute any alcohol or drug abuse patient.[facility] Encounter Details Date Type Department Care Team (Late st Contact Info) Description 02/27/2025 [place] [address] Provider, Ccf Colonoscopy Perinatology Physician Enrollment Social History Tobacco Use Types Packs/Day Years Used Date Smoking Tobacco: Never Passive Smoke Exposure: Past Smokeless Tobacco: Never Alcohol Use Standard Drinks/Week Comments Yes 0 (1 standard drink = 0.6 oz pur e alcohol) 2 times a month if that [facility] Utilities Answer Date Recorded In the [...] PM EDT OT/PT/Speech Visit Physical Therapy [address] [place] [address] Therese Anthony, PT [address] [place] [address] 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] 03/13/2025 8:30 AM EDT Appointment Procedures [address] [place] [address] [place] [address] [place] [address] History of colon cancer [Z85.038] 04/02/2025 1:00 PM EDT OT/PT/Speech Visit Physical Therapy [address] [place] [address] Therese Anthony, PT [address] [place] [address] 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 Corona 08/23/25, labs 1 week prior documented as of this encounter Goals Goal Patient Goal Type Associated Problems Recent Progress Patient-Stated? Author Colonoscopy Perinatology Physician Care Plan Colonoscopy Perinatology Physician No Mirna, Felicity documented as of this encounter Visit Diagnoses Not on filedocumented in this encounter Additional Health Concerns Active Problems Noted Date Diagnosed Date Colonoscopy Perinatology Physician 02/27/2025 documented as of this encounter Care Teams Shopper Marketing Manager Relationship Specialty Start Date End Date Leno Colin [address] [place] [phone] PCP - General Family Medicine 03/16/23 Tapan Corona MD [address] [place] [address] Physician Hematology/Oncology 03/22/23 Naheed Elias PA-C [address] [place] [address] [place] [address] Physician Manager Garden Hematology/Oncology 03/22/23 Maryuri Rodriguez LSW Reinforcing Iron Worker Helper 07/21/23 documented as of this encounter
--- OUTSIDE RECORDS SUMMARY | 2025-03-03 08:01 | XMS_ITS | Encounter Summary ---
Author Organization [facility] Address [facility] [place] [address] Care Team Providers Care Supreme Court Judge Name Role Phone Leon Colin Brendon Primary Care Provider [phone] Tapan Corona MD Unavailable [phone] Naheed Elias PA-C Unavailable [phone] Maryuri Rodriguez Unavailable Unavailable Source Comments In the event this information is protected by the Federal Confidentiality of Alcohol and Drug AbusePatient Records regulations: The Federal rules restrict any use of the information to criminally investigate or prosecute any alcohol or drug abuse patient.[facility] Reason for Visit * Reason Comments history of colon cancer Encounter Details Date Type Department Care Team (Late st Contact Info) Description 02/20/2025 Education Colorectal Surgery [address] [place] [address] Russel Lindquist, KAYA history of colon cancer Social History Tobacco Use Types Packs/Day Years Used Date Smoking Tobacco: Never Passive Smoke Exposure: Past Smokeless Tobacco: Never Alcohol Use Standard Drinks/Week Comments Yes 0 (1 standard drink = 0.6 oz pur e alcohol) 2 times a month if that [facility] Utilities Answer Date Recorded In the [...] place to sleep or slept in a half-way (including now)? No 11/09/2023 Comments No Sex [...] of Assessment Author No 09/04/2023 3:54 PM EST Duncan, J essica, RN * Do you have serious difficulty [...] documented in this encounter Progress Notes * Russel Lindquist RN - 02/20/2025 1:47 PM EDT AMBULATORY PATIENT EDUCATION NOTE DIAGNOSIS: history of colon cancer PROCEDURE PREPARATION INSTRUCTIONS: colonoscopy READINESS TO LEARN COGNITIVE ABILITY: Alert and oriented MOTIVATION TO LEARN: Eager FAMILY SUPPORT: Moderate - Family present but overwhelmed PHYSICAL LIMITATIONS AFFECTING LEARNING: None METHOD OF INSTRUCTION: Verbal and Written instruction - handouts provided PRE PROCEDURE INSTRUCTIONS REVIEWED: -Colonoscopy: scheduled today in the office with patient. Handout instructions reviewed in detail Patient acknowledges and understands. They have contact phone number for further concerns and for questions. 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] 03/13/2025 8:30 AM EDT Appointment Procedures [address] [place] [address] [place] [address] [place] [address] History of colon cancer [Z85.038] 04/02/2025 1:00 PM EDT OT/PT/Speech Visit Physical Therapy [address] [place] [address] Therese Anthony, PT [address] [place] [address] 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 Corona 08/23/25, labs 1 week prior documented as of this encounter Visit Diagnoses Not on filedocumented in this encounter Care Teams Supreme Court Judge Relationship Specialty Start Date End Date Leon Colin [address] [place] [phone] PCP - General Family Medicine 03/16/23 Tapan Corona MD [address] [place] [address] Physician Hematology/Oncology 03/22/23 Naheed Elias PA-C [address] [facility] [place] [address] Physician Fuel Testing Technician Hematology/Oncology 03/22/23 Maryuri Rodriguez LSW Synoptic Meteorologist 07/21/23 documented as of this encounter
--- OUTSIDE RECORDS SUMMARY | 2025-03-03 08:01 | XMS_ITS | Encounter Summary ---
Author Organization [facility] Address [address] [place] [address] Care Team Providers Care Car Tester Name Role Phone Leon Colin Primary Care Provider [phone] Colleen Solorio RN Unavailable [phone] Tapan Corona MD Unavailable [phone] Naheed Elias PA-C Unavailable [phone] Maryuri Rodriguez Unavailable Unavailable Source Comments In the event this information is protected by the Federal Confidentiality of Alcohol and Drug AbusePatient Records regulations: The Federal rules restrict any use of the information to criminally investigate or prosecute any alcohol or drug abuse patient.[facility] Encounter Details Date Type Department Care [...] OT/PT/Speech Visit Physical Therapy [address] [place] [address] Therese Anthony, PT [address] [place] [address] 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] 03/13/2025 8:30 AM EDT Appointment Procedures [address] [place] [address] [place] [address] [place] [address] History of colon cancer [Z85.038] 04/02/2025 1:00 PM EDT OT/PT/Speech Visit Physical Therapy [address] [facility] [place] [address] Therese Anthony, PT [address] [place] [address] 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 Corona 08/23/25, labs 1 week prior documented as of this encounter Visit Diagnoses Not on filedocumented in this encounter Care Teams Car Tester Relationship Specialty Start Date End Date Dixie Leonrocio Olivas [address] [place] [phone] PCP - General Family Medicine 03/16/23 Colleen Solorio, RN [address] [place] [address] [place] [address] Specialty Cpr Ambulance Driver Hematology/Oncology 03/22/23 02/07/24 Tapan Corona MD [address] [place] [address] Physician Hematology/Oncology 03/22/23 Naheed Elias, PA-C [address] [place] [address] [place] [address] Physician Plywood Layup Line Core Feeder Hematology/Oncology 03/22/23 Maryuri Rodriguez LSW Melt Supervisor 07/21/23 documented as of this encounter
--- OUTSIDE RECORDS SUMMARY | 2025-03-03 08:01 | XMS_ITS | Encounter Summary ---
Author Organization [facility] Address [address] [place] [address] Care Team Providers Care Content Engineer Name Role Phone Leon Colin Primary Care Provider [phone] Colleen Solorio RN Unavailable [phone] Tapan Corona MD Unavailable [phone] Naheed Elias PA-C Unavailable [phone] Maryuri Rodriguez Unavailable Unavailable Source Comments In the event this information is protected by the Federal Confidentiality of Alcohol and Drug AbusePatient Records regulations: The Federal rules restrict any use of the information to criminally investigate or prosecute any alcohol or drug abuse patient.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] 03/13/2025 8:30 AM EDT Appointment Procedures [address] [place] [address] [place] [address] [place] [address] History of colon cancer [Z85.038] 04/02/2025 1:00 PM EDT OT/PT/Speech Visit Physical Therapy [address] [place] [address] Therese Anthony, PT [address] [place] [address] 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 [place] [address] Tapan Corona MD [address] [place] [address] F/U with Dr. Corona 08/23/25, labs 1 week prior documented as of this encounter Visit Diagnoses Not on filedocumented in this encounter Care Teams Content Engineer Relationship Specialty Start Date End Date Leon Colin [address] [place] [phone] PCP - General Family Medicine 03/16/23 Colleen Solorio RN [address] [place] [address] [place] [address] Specialty Transmission Rebuilder Hematology/Oncology 03/22/23 02/07/24 Tapan Corona MD [address] [place] [address] Physician Hematology/Oncology 03/22/23 Naheed Elias, PA-C [address] [place] [address] [place] [address] Physician Dye House Hand Hematology/Oncology 03/22/23 Maryuri Rodriguez LSW Assistant Boys Track Coach 07/21/23 documented as of this encounter
--- OUTSIDE RECORDS SUMMARY | 2025-03-03 08:01 | XMS_ITS | Encounter Summary ---
Author Organization [facility] Address [address] [place] [address] Care Team Providers Care Edi Analyst Name Role Phone Leon Colin DO Primary Care Provider [phone] Encounter Details Date Type Department Care Team (Late st Contact Info) Description 02/28/2024 Orders Only SHONNA Christie OBGYN [address] [facility] [place] [phone] Elba Griffith MA [address] [place] [address] Social History Tobacco Use Types Packs/Day Years [...] on filedocumented in this encounter Care Teams Edi Analyst Relationship Specialty Start Date End Date Leon Colin DO PCP - General 12/13/22 documented as of this encounter
--- OUTSIDE RECORDS SUMMARY | 2025-03-03 08:01 | XMS_ITS | Encounter Summary ---
Author Organization [facility] Address [address] [place] [address] Care Team Providers Care Digital Marketing Manager Name Role Phone Leon Colin DO Primary Care Provider [phone] Encounter Details Date Type Department Care Team (Late st Contact Info) Description 02/25/2025 Orders Only SHONNA Christie OBGYN [address] [facility] [place] [address] Cathleen Cooley PA [address] [facility] [address] [place], [facility] Postmenopausal state; Osteopenia after menopause Social History Tobacco Use Types Packs/Day Years [...] as of this encounter Plan of Treatment Scheduled Orders Name Type Priority Associated Diagnoses Orde r Schedule Creatinine Lab Routine Postmenopausal state Osteopenia after menopause Expected: 02/25/2025 (Approximate), Expires: 02/25/2026 Calcium Lab Routine Postmenopausal state Osteopenia after menopause Expected: 02/25/2025 (Approximate), Expires: 02/25/2026 documented as of this encounter Visit Diagnoses Diagnosis Postmenopausal state Asymptomatic postmenopausal status (age-related) (natural) Osteopenia after menopause documented in this encounter Care Teams Digital Marketing Manager Relationship Specialty Start Date End Date Leon Colin DO PCP - General 12/13/22 documented as of this encounter
--- OUTSIDE RECORDS SUMMARY | 2025-03-03 08:01 | XMS_ITS | Encounter Summary ---
Author Organization [facility] Address [address] [place] [address] Care Team Providers Care Fibreglass Gun Hand Name Role Phone Leon Colin DO Primary Care Provider [phone] Encounter Details Date Type Department Care Team ([facility] st Contact Info) Description 06/26/2023 External Result Encounter [facility] External Department Unsolicited Cristhian Vargas MD [address] [facility] 150 [place] [address] Social History Tobacco Use Types [...] PM EST Impressions 06/27/2023 11:39 AM EST MVAKPW-[id number] PLACEMENT, DESCRIBED. NO ACUTE FINDINGS Impression dictated by: Princess Sanchez M.D.06/26/2023 3:02 PM Dictation Location: [place] [address] Transcribed By: [facility] 06/26/23 1502 Dictated By: Princess Sanchez MD 06/26/23 1458 Signed By: <Electronically signed by MD Princess Sanchez in OV> 06/26/23 1502 Narrative 06/27/2023 11:39 AM EST [facility] Main [place] [address] [place] [address] XRay Report Signed Patient: Cristina Kelley MR#: [id number] : 1955 Acct:[id number] Age/Sex: 67 / F ADM Date: 06/26/23 Loc: [place] Room: Type: [facility] Attending Dr: Cristhian Vargas MD Copies to: Cristhian Vargas MD Ordering Provider: Cristhian Vargas MD Date of Service: 06/26/23 XR/XR chest 1V portable: POST PORT PORTABLE AP ERECT CHEST 1440 hours CLINICAL HISTORY: Follow-up after Cdefah-c-Ppld placement COMPARISON: 11/02/[address] 04/05/2023 There is a left subclavian Vtnoyv-g-Yuif catheter with tip overlying the distal superior vena cava. The heart is within normal limits. There is no vascular congestion. The lungs, as visualized, are clear. There is no effusion or pneumothorax. The bony structures are osteopenic. There is levoscoliotic curvature and endplate spurring. XR/XR chest 1V portable Procedure Note Radiology, RadiologistMD - 06/27/2023 [facility] Main [place] [address] [place] [address] XRay Report Signed Patient: Cristina Kelley CMR#: [id number] : 4Acct:[id number] Age/Sex: 67 / FADM Date: 06/26/23 Loc: [place] Room:Type: [facility] Attending Dr: Cristhian Vargas MD Copies to: Cristhian Vargas MD Ordering Provider: Cristhian Vargas MD Date of Service: 06/26/23 XR/XR chest 1V portable: POST PORT PORTABLE AP ERECT CHEST 1440 hours CLINICAL HISTORY: Follow-up after Hhnkrj-s-Jlrm placement COMPARISON: 11/02/[address] 04/05/2023 There is a left subclavian Xjkumc-k-Nsaa catheter with tip overlying thedistal superior vena cava. The heart is within normal limits. There is no vascular congestion. Thelungs, as visualized, are clear. There is no effusion or pneumothorax. The bony structures areosteopenic. There is levoscoliotic curvature and endplate spurring. XR/XR chest 1V portable IMPRESSION: VJLMUA-V-YONQ PLACEMENT, DESCRIBED. NO ACUTE FINDINGS Impression dictated by: Princess Sanchez M.D.06/26/2023 3:02 PM Dictation Location: [place] [address] Transcribed By: [facility] 06/26/23 1502 Dictated By: Princess Sanchez MD 06/26/23 1458 Signed By: <Electronically signed by MD Princess Sanchez in OV> 06/26/23 1502 us Cristhian Crawley MD IMG XR PROCEDURES Final Resu lt documented in this encounter Visit Diagnoses Not on filedocumented in this encounter Care Teams Fibreglass Gun Hand Relationship Specialty Start Date End Date Leon Colin DO PCP - General 12/13/22 documented as of this encounter
--- OUTSIDE RECORDS SUMMARY | 2025-03-03 08:01 | XMS_ITS | Clinical Summary ---
Author Organization [facility] Address [id number] [address] [place] [address] Care Team Providers Care Hand Cigar Maker Name Role Phone Leon Colin Primary Care Provider Allergies No known active allergies Medications omeprazole [...] PT 360 Medical Devices Implanted Type Area Cyber Engineer Device Identifier Shelf Expiration Date Model / Serial / Lot Cement Bio 40gm Rpl [id number] - On License Of [facility] - [id number] Implanted:Qt y: 2 on 12/14/2022 by Zeb Valle DO at [facility] Cement Right: Knee [employer] 04/08/2025 [id number] / NA / [id number] Surface Artc 11mm Persona Mdl Cngr 6-7 Cd Kn Rt Vivacit-E - Sna - [id number] Implanted:Qt y: 1 on 12/14/2022 by Zeb Valle DO at [facility] Orthopedic Implant Right: Knee [employer] 12/07/2024 [id number] / NA / [id number] Component Fem 6 Std Kn Rt Crcte Rtn Cmnt Persona Cocr - Sna - [id number] Implanted:Qt y: 1 on 12/14/2022 by Zeb Valle DO at [facility] Orthopedic Implant Right: Knee [employer] 09/24/2032 [id number] / NA / [id number] Baseplate Tib 5d D Kn Rt Cmnt Stm Persona Tiv Strl - Sna - [id number] Implanted:Qt y: 1 on 12/14/2022 by Zeb Valle DO at [facility] Plate Right: Knee [employer] 11/17/2031 [id number] / NA / [id number] Explanted Type Area Cyber Engineer Device Identifier Shelf Expiration Date Model / Serial / Lot Screw Gd 48mm Qd-Spr Hex Hd Mis Strl - Sna - [id number] Explanted:Qty: 2 on 12/14/2022 by Zeb Valle DO at [facility] Screw Right: Knee [employer] 05/20/[id number] / NA / [id number] Guide 27mm Hx Hd Scr Srg - Sna - [id number] Explanted:Qty: 2 on 12/14/2022 by Zeb Valle DO at [facility] Screw Right: Knee [employer] 12/01/203131-7855-560-27 / NA / [id number] Screw Bn 35mm 6.5mm St Hip Actb Trlg Strl Rpl [id number]+32 - Sna - [id number] Explanted:Qty: 1 on 12/14/2022 by Zeb Valle DO at [facility] Screw Right: Knee [employer] 09/10/2032 [id number] / NA / [id number] Screw Bn 35mm 6.5mm St Hip Actb Trlg Strl Rpl [id number]+32 - Sna - [id number] Explanted:Qty: 1 on 12/14/2022 by Zeb Valle DO at [facility] Screw Right: Knee [employer] 08/27/2032 [id number] / NA / [id number] Insurance MEDICARE [place] [place] Care Teams Hand Cigar Maker Relationship Specialty Start Date End Date Leon Colin DO [address] [place] [phone] PCP - General Family Medicine 11/22/22
--- OUTSIDE RECORDS SUMMARY | 2025-03-03 08:01 | XMS_ITS | Encounter Summary ---
Author Organization [facility] Address [address] [place] [address] Care Team Providers Care Kindergarten Assistant Name Role Phone Leon Colin Primary Care Provider [phone] Colleen Solorio RN Unavailable [phone] Tapan Corona MD Unavailable [phone] Naheed Elias PA-C Unavailable [phone] Maryuri Rodriguez Unavailable Unavailable Source Comments In the event this information is protected by the Federal Confidentiality of Alcohol and Drug AbusePatient Records regulations: The Federal rules restrict any use of the information to criminally investigate or prosecute any alcohol or drug abuse patient.[facility] Encounter Details Date Type Department Care Team (Late st Contact Info) Description 03/13/2023 [place] [address] Provider, Ccf Questionnaire Submission Social History Tobacco [...] Visit Physical Therapy [address] [place] [address] Therese Anthony, PT [address] [place] [address] 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 [place] [address] Del Aguilar MD 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 Corona 08/23/25, labs 1 week prior documented as of this encounter Visit Diagnoses Not on filedocumented in this encounter Care Teams Kindergarten Assistant Relationship Specialty Start Date End Date Leon Colin [address] [place] [phone] PCP - General Family Medicine 03/16/23 Colleen Solorio RN [address] [place] [address] [place] [address] Specialty Ventilating Engineer Hematology/Oncology 03/22/23 02/07/24 Tapan Corona MD [address] [place] [address] Physician Hematology/Oncology 03/22/23 Naheed Elias, PA-C [address] [place] [address] [place] [address] Physician Paper Spooler Hematology/Oncology 03/22/23 Maryuri Rodriguez LSW Packaging Machine Operator 07/21/23 documented as of this encounter
--- OUTSIDE RECORDS SUMMARY | 2025-03-03 08:01 | XMS_ITS | Clinical Summary ---
Author Organization [facility] Address [address] [place] [address] Care Team Providers Care Industrial Maintenance Technician Name Role Phone Charles Bazzi Raphael HARLEY Primary Care Provider [phone] Allergies No known active allergies Medications oxybutynin [...] Take 5 mg by mouth Daily Active [place]-3 Fatty Acids (Fish Oil) 1200 MG capsule [...] Active Problems Problem Noted Date Diagnosed Date Postmenopausal state 02/25/20252018 novel coronavirus-infected pneumonia (NCIP) 01/12/2024 Acute UTI 01/12/2024 Arthritis 01/12/2024 Bilateral primary osteoarthritis of knee 024 Abdominal pain 01/12/2024 Complete obstruction of small intestine 01/12/20 24 Diverticulosis 01/12/2024 Hyperglycemia 01/12/2024 Vomiting 01/12/2024 Other [...] myocardial fusion study which done at the [facility] and was able to retrieve the [...] 1 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 Encounters Date Type Department Care Team Description 02/26/2025 [place] [phone] Jairon Pisano DO 02/25/2025 [place] [phone] Cathleen Cooley PA Postmenopausal state; Osteopenia after menopause from Last 3 Months Immunizations Immunization Administration Dates Next Due Influenza, [...] Colorectal Cancer Screening 07/27/2028 Sigmoidoscopy 07/27/2028 07/27/2023, 11, 03/16/2023 Procedures Procedure Name Priority Date/Time Associated Diagnosis Comments MM TOMOSYNTHESIS SCREENING BI 04/23/2024 1:53 PM EDT from Last 3 Months or Most Recently Relevant to Health Maintenance Results * MM TOMOSYNTHESIS SCREENING BI (04/23/2024 1:53 PM EDT) Anatomical Region Laterality Modality Other 04/23/2024 1:53 PM EDT Narrative 04/23/2024 1:54 [place] [address] Mammography Report Signed Patient: CRISTINA GILL MR#: [id number] : 1955 Acct:[id number] Age/Sex: 68 / F ADM Date: 04/23/24 Loc: MAMMO Attending Dr: Jairon Pisano D.O. Ordering Physician: Jairon Pisano D.O. Results: Date of Service: 04/23/24 Follow Up: Procedure(s): MM tomosynthesis screening BI Accession Number(s): [id number] cc: Jairon Pisano D.O.; CHARLES BAZZI Patient Name: CRISTINA GILL MR#: [id number] : 1955 Exam Date: 04/23/2024 Ordering Doctor: [...] Treatments None Family Cancers None LOCATION: [facility] BREAST COMPOSITION: There are scattered areas of [...] By: Kennedy Padilla M.D. Signed By: 04/23/24 135 DD/ 52 TD/TT: Biodiesel Division Manager: Procedure Note Radiology, Radiologist, - 04/23/2024 [place] [address] Mammography Report Signed Patient: CRISTINA GILL CMR#: [id number] : 1955cct:[id number] Age/Sex: 68 / FADM Date: 04/23/24 Loc: MAMMO Attending Dr: Jairon Pisano D.O. Ordering Physician: Jairon Pisano D.O.Results: Date of Service: 04/23/24Follow Up: Procedure(s): MM tomosynthesis screening BI Accession Number(s): [id number] cc: Jairon Pisano D.O.; CHARLES BAZZI Patient Name: CRISTINA GILL MR#: [id number] : 1955 Exam Date: 04/23/2024 Ordering Doctor: [...] Treatments None Family Cancers None LOCATION: [facility] BREAST COMPOSITION: There are scattered areas of [...] M.D. Signed By:04/23/24 1354 DD/ 1353 TD/TT: Biodiesel Division Manager: [facility] DO [facility] Final Result from Last 3 Months or Most Recently Relevant to Health Maintenance Insurance [employer] Care Teams Industrial Maintenance Technician Relationship Specialty Start Date End Date Charles Bazzi DO [facility] - General 12/13/22
--- OUTSIDE RECORDS SUMMARY | 2025-03-03 08:02 | XMS_ITS | Encounter Summary ---
Author Organization [facility] Address [address] [place] [address] Care Team Providers Care Behavioral Health Consultant Name Role Phone Leon Colin Primary Care Provider [phone] Colleen Solorio RN Unavailable [phone] Tapan Corona MD Unavailable [phone] Naheed Elias PA-C Unavailable [phone] Maryuri Rodriguez Unavailable Unavailable Source Comments In the event this information is protected by the Federal Confidentiality of Alcohol and Drug AbusePatient Records regulations: The Federal rules restrict any use of the information to criminally investigate or prosecute any alcohol or drug abuse patient.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] 03/13/2025 8:30 AM EDT Appointment Procedures [address] [place] [address] [place] [address] [place], [place] [id number] History of colon cancer [Z85.038] 04/02/2025 1:00 PM EDT OT/PT/Speech Visit Physical Therapy [address] [place] [address] Therese Anthony, PT [address] [place], [place] [phone] 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 Corona 08/23/25, labs 1 week prior documented as of this encounter Visit Diagnoses Not on filedocumented in this encounter Care Teams Behavioral Health Consultant Relationship Specialty Start Date End Date Leon Colin [address] [place] [phone] PCP - General Family Medicine 03/16/23 Colleen Solorio RN [address] [place] [address] [place] [address] Specialty Engineer Steam Hematology/Oncology 03/22/23 02/07/24 Tapan Corona MD [address] [place] [address] Physician Hematology/Oncology 03/22/23 Naheed Elias, PA-C [address] [place] [address] [place] [address] Physician Physiology Teacher Hematology/Oncology 03/22/23 Maryuri Rodriguez LSW Roof Bolter Helper 07/21/23 documented as of this encounter
--- OUTSIDE RECORDS SUMMARY | 2025-03-03 08:02 | XMS_ITS | Encounter Summary ---
Author Organization [facility] Address [address] [place] [address] Care Team Providers Care Wastewater Supervisor Name Role Phone Leon Colin Brendon Primary Care Provider [phone] Tapan Corona MD Unavailable [phone] Naheed Elias PA-C Unavailable [phone] Maryuri Rodriguez Unavailable Unavailable Source Comments In the event this information is protected by the Federal Confidentiality of Alcohol and Drug AbusePatient Records regulations: The Federal rules restrict any use of the information to criminally investigate or prosecute any alcohol or drug abuse patient.[facility] Encounter Details Date Type Department Care Team (Late st Contact Info) Description 11/28/2024 Patient Msg Physical Therapy [address] [place], [place] [id number] Provider, Ccf Physical Therapy appointment cancellation Social History Tobacco Use Types Packs/Day Years Used Date Smoking Tobacco: Never Passive Smoke Exposure: Past Smokeless Tobacco: Never Alcohol Use Standard Drinks/Week Comments Yes 0 (1 standard drink = 0.6 oz pur e alcohol) 2 times a month if that [facility] Utilities Answer Date Recorded In [...] EDT OT/PT/Speech Visit Physical Therapy [address] [facility] [place] [address] Therese Anthony, PT [address] [place], [place] [phone] 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] 03/13/2025 8:30 AM EDT Appointment Procedures [address] [place] [address] [place] [address] [place] [address] History of colon cancer [Z85.038] 04/02/2025 1:00 PM EDT OT/PT/Speech Visit Physical Therapy [address] [place] [address] Therese Anthony, PT [address] [place], [place] [phone] 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] 04/16/2025 9:45 AM EDT Office Visit Radiation Oncology [address] [place] [address] Del Aguilar MD [address] [place] [address] [place] [address] Return in about 6 months 04/23/2025 1:00 PM EDT OT/PT/Speech Visit Physical Therapy [address] [facility] [place] [address] Therese Anthony, PT [address] [place] [place], [place] [phone] 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 Corona 08/23/25, labs 1 week prior documented as of this encounter Visit Diagnoses Not on filedocumented in this encounter Care Teams Wastewater Supervisor Relationship Specialty Start Date End Date Leon Colin [address] [place] [phone] PCP - General Family Medicine 03/16/23 Tapan Corona MD [address] [place] [address] Physician Hematology/Oncology 03/22/23 Naheed Elias, PA-C [address] [place] [address] [place] [address] Physician Thread Winder Hematology/Oncology 03/22/23 Maryuri Rodriguez LSW Engine Dynamometer Tester 07/21/23 documented as of this encounter
[2025-03-03 08:06] VITALS: BP 110/77; PULSE 74; TEMP 36.3; O2SAT 100
--- OUTSIDE RECORDS SUMMARY | 2025-03-03 08:06 | XMS_ITS | CCD ---
Author Organization [facility] Care Team Providers Care Auricular Detoxification Specialist Name Role Phone CHARLES BAZZI Unavailable Unavailable CHARLES BAZZI Unavailable Unavailable Caroline Rangel II Unavailable DO Charles Bazzi Primary Care Provider MD Caroline Rangel II Attending Provider Charles Bazzi Unavailable DO Charles Bazzi Primary Care Provider DO Charles Bazzi Attending Provider [phone] Charles Bazzi Unavailable Unavailable Unavailable CAROLINE [...] Provider Unavailabl Charles Ho Primary Care Provider [phone] Osmin KIRKPATRICK, Colleen Mathis Unavailable [phone] Logan VELASQUEZ, Tapan Unavailable Naheed Elias PA-C Unavailable DO Charles Bazzi Primary Care Provider MD Tomi Greene Attending Provider AUSTIN Rangel Emergency Provider [phone] DO Jordan Hare Admit Provider DO Jordan Hare Attending Provider KAYA Harmon Other Provider Unavailable DO Akila Stokes Other Provider MD Troy Tabares Other Provider MD David Espinosa Other Provider MD Marcos Rios Other Provider MD Blas Villagomez Other Provider ROXY Wyatt Other Provider MD Amanda Mora Other Provider MD Mali Camposammed Naerlinda Other Provider MD Kandace Shah Other Provider Ernesto [facility] Arlette Church Other Provider MD Wendy Ocasio Other Provider MD Agustin Negron Attending Provider MD Tapan Corona Other Provider Dr. Charles Bazzi Primary Care Unavailabl khadra Bazzi, Dr. Charles Olivas Primary Care Unavailabl Dr. Marcos Pitts Attending Cristia marito Rios, Dr. Anna Referring Dr. Charles [facility] Charles Ho Primary Care Provider AUSTIN Rangel Emergency Provider DO Jordan Hare Admit Provider KAYA Harmon Other Provider Unavailable DO Akila Stokes Other Provider MD Troy Tabares Other Provider MD David Espinosa Other Provider MD Marcos Rios Other Provider MD Blas Villagomez Other Provider ROXY Wyatt Other Provider MD Amanda Mora Other Provider MD Jomar Campos Other Provider MD Kandace Shah Other Provider Ernesto [facility] Arlette Church Other Provider MD Wendy Ocasio Other Provider MD Agustin Negron Attending Provider MD Tapan Corona Other Provider MD Cristhian Vargas Attending Provider Charles Bazzi DO Primary Care Provider [phone] MARCOS RIOS Attending Unavailable CHARLES BAZZI Primary Care Unavailable [facility] Un[facility] Unavailable DO Charles Bazzi Primary Care Provider [phone] DO Patrice Springer Emergency Provider [place] MD Miguel Ángel Dobson Admit Provider MD Miguel Ángel Delgadillo Attending Provider [phone] MD Tim Garduno Attending Provider MD Cristhian Vargas Other Provider DO Charles Bazzi Attending Provider MD Mary Al Emergency Provider [phone] MD Patrice Hooks Admit Provider [phone] MD Patrice Hooks Attending Provider [phone] DO Jm Trujillo Attending Provider [phone] DO Ion Eckert Other Provider Charles Bazzi [...] CRISTHIAN Attending Unavailable SUDHA THAPA Attending Unavailable LIANA, OSCAR Contreras Attending Unavailable LIANA, OSCAR A Referring Unavailable LIANA, OSCAR A Attending Unavailable LIANA, OSCAR A Attending Unavailable LIANA, OSCAR A Attending Unavailable LIANA, OSCAR A Referring Unavailable V, CRISTHIAN Attending Unavailable KARAMLOU, TAPAN Referring Unavailable V, CRISTHIAN Attending Unavailable LIANA, OSCAR A Attending Unavailable CARLTON, CATHLEEN Attending Unavailable V, CRISTHIAN Attending Unavailable KARAMLOU, ATPAN Referring Unavailable Osmin KIRKPATRICK, Colleen Mathis Unavailable Unavailable Primary Care Provider Unavailjonathan e KARAMLOU, TAPAN Referring Unavailable KUNS, CHARLES BRENDON Primary Care Unavailable BRUNA HICKS Attending Unavailable BAN, LAISHA Referring Unavailable KUNS, CHARLES BRENDON Primary Care Unavailable PRACHI LOZANO Attending Unavailable KUNS, CHARLES BRENDON Primary Care Unavailable Kuns DO, Charles Primary Care Provider [phone] Chris Hennign APRN Emergency Provider Jorge A Haji DO Attending Provider Charles Bazzi DO R Primary Care Provider Jorge A Haji DO Other Provider Amanda Chester MD Attending Provider Charles Bazzi DO Attending Provider [phone] Dixie DOCharles Primary Care Provider [phone] Chris Henning APRN Emergency Provider [phone] Dixie DOCharles Primary Care Provider Alejos DO, Charles Primary Care Provider Amanda Chester MD Attending Provider [phone] Charles Bazzi DO Primary Care Provider [phone] Amanda Chester MD Attending Provider Tomi Greene MD Attending Provider Kuns, Charles Primary Care Unavailable Calvey, Amanda R Attending Unavailable Calvey, Amanda R Admitting Unavailable Kuns, Charles Attending Unavailable Kuns, Charles Admitting Unavailable Kuns, Charles Primary Care Unavailable Calvey, Amanda R Admitting Unavailable Calvey, Amanda R Attending Unavailable Kuns, Charles Primary Care Unavailable Calvey, Amanda R Admitting Unavailable Calvey, Amanda R Attending Unavailable Kuns, Charles Primary Care Unavailable Kuns, Charles Primary Care Unavailable Asaad, Imad Admitting Unavailable Asahank, Imhank Attending Unavailable Amanda Chester R Admitting Unavailable Kuns, Charles Primary Care Unavailable CalvAmanda ross R Attending Unavailable Kuns, Charles Primary Care Unavailable MiladyJan jeongothy Admitting Unavailable Milady, Chris Attending Unavailable Jorge A Haji Consulting Unavailable Kuns, Charles Primary Care Unavailable Milady, Chris Admitting Unavailable Chris Henning Attending Unavailable Kuns, Charles Primary Care Unavailable Jorge A Haji Admitting Unavailable Jorge A Haji Attending Unavailable Kuns, Charles Primary Care Unavailable Amanda Chester Attending Unavailable Amanda Chester R Admitting Unavailable Venkat VELASQUEZ, Andrius Mahajan Attending Unavailable Giedraitis , Andrius Vytjarad Attending Unavailable Gimeekraitis , Andrius Vytjarad Attending Unavailable Gimeekraitis , Andrius Vytautnunu Attending Unavailable Giedraitis , Andrius Vytautas Attending Unavailable Giedraitis , Andrius Vytautas Attending Unavailable BAN, LAISHA Referring Unavailable ALE MARIE Attending Unavailable KUNS, CHARLES BRENDON Primary Care Unavailable BAN, LAISHA Referring Unavailable BAN, LAISHA Attending Unavailable KUNS, CHARLES BRENDON Primary Care Unavailable Del HUDSON Attending Unavailable KUNS, CHARLES BRENDON Primary Care Unavailable KARAMLAMINEU, TAPAN Attending Unavailable KUNS, CHARLES BRENDON Primary Care Unavailable KELSEYU, TAPAN Referring Unavailable KUNS, CHARLES BRENDON Primary Care Unavailable LOGAN TAPAN Attending Unavailable KUNS, CHARLES BRENDON Primary Care Unavailable Del HUDSON Attending Unavailable ALEJOS, CHARLES BRENDON Primary Care Unavailable LOGAN, TAPAN Attending Unavailable ALEJOS, [facility] Primary Care Unavailable BAN, LAISHA Referring Unavailable BAN, LAISHA Referring Unavailable KUNS, CHARLES BRENDON Primary Care Unavailable BAN, LAISHA Attending Unavailable KARAMLOU, TAPAN Referring Unavailable KUNS, CHARLES BRENDON Primary Care Unavailable KARAMLOU, TAPAN Referring Unavailable KUNS, [facility] Primary Care Unavailable BAN, LAISHA Referring Unavailable ALE MARIE Attending Unavailable ALEJOS, [facility] Primary Care Unavailable CHAPINCITO ANTHONY Attending Unavailable ALEJOS, CHARLES BRENDON Primary Care Unavailable BAN, LAISHA Referring Unavailable BAN, LAISHA Referring Unavailable CHAPINCITO ANTHONY A Attending Unavailable DIXIE, CHARLES [facility] Unavailable Medications Current Medications Medication Drug Class(es) Dates Sig (Normalized) Sig (Original) Aspir-81 81 MG (20 sources) Start: 02-28-2018 take 1 tablet by mouth once daily Aspir-81 81 MG 1 tablet Orally Once a day Feb, Active aspirin 81 mg delayed release oral tablet (20 sources) Platelet Aggregation Inhibitor, Nonsteroidal Anti-inflammatory Drug Start: 11-02-2018 take 1 tablet by mouth once daily Aspirin 81 mg tablet,delayed release (DR/EC) Active 81 MG PO Daily November 02, 2018 12:00am Comment on above: Take 81 mg by mouth once daily. Bacillus coagulan-calcium carb (DIGESTIVE ADVANTAGE PROBIOTIC) 2 billion cell- 140 mg cap (3 sources) Start: 11-10-2023 End: 12-10-2023 take 1 capsule by mouth once daily Bacillus coagulan-calcium carb (DIGESTIVE ADVANTAGE PROBIOTIC) 2 billion cell- 140 mg cap Take 1 capsule by mouth once daily. Patient should start on November 10, 2023. 30 capsule 0 11/10/2023 12/10/2023 Active bifidobacterium animalis [id number] unt / lactobacillus acidophilus [id number] unt oral capsule (2 sources) Start: 11-09-2023 Probiotic Product (Digestive Advantage) capsule 11/09/2023 Active Probiotic CAPS U SE DIRECTED. Quantity: 0 Refills: 0 Ordered: 26-Oct-2022 DO Active Calcium Carbonate (2 sources) take 1 tablet by once daily calcium carbonate (CALCIUM 500 ORAL) [...] 06, 2023 12:00am April 05, 2023 3:37pm Start: 12-07-2022 denosumab (Pro nova) injection 60 [...] contrast (will be provided with radiology test) (5 sources) Start: 09-03-2024 End: 09-04-2024 enteric contrast (will be provided with radiology test) Indications: History of rectal cancer , Rectal cancer (HCC) For CT CHESTABD/PEL W IVCON Routine order Administer, As Directed One Time Only, via Oral, Rectal, both Oral and Rectal, Enteric Tube, Stoma or Indwelling Catheter, Enteric Contrast as designated per enteric contrast guidelines 1 Each 09/03/2024 09/04/2024 Active Start: 04-28-2023 End: 04-29-2023 enteric contrast (will be pr ovided with [...] contrast guidelines escitalopram 10 mg oral tablet (20 sources) Serotonin Reuptake Inhibitor Start: 06-11-2024 LEXAPRO 10 mg tablet 06/13/2024 Active ibuprofen 400 mg oral tablet (9 sources) Nonsteroidal Anti-inflammatory Drug Start: 11-09-2023 End: 02-06-2024 ibuprofen 400 MG tablet 11/09/2023 Active INV SEMAGLUTIDE 0.25 MG/0.5 ML INJECTION (IRB 24-915) (1 source) INV SEMAGLUTIDE 0.25 MG/0.5 ML INJECTION (IRB 24-915) Inject 0.25 mg subcutaneously one time a week. For Investigational Drug Use Only. PI: Ruthann Cisneros MD. Active iv contrast (will be provided with radiology test) (5 sources) Start: 09-03-2024 End: 09-04-2024 iv contrast (will be provided with radiology test) Indications: History of rectal cancer , Rectal cancer (HCC) CT Chest ABD/PEL-Inject, intravenously, once for 1 dose.No IV access, insert saline lock prior to the beginning of sedation, infusion, injection of imaging exam. Discontinue saline lock post exam. If Pt. has a central line or IVAD, may access for administration according to line specific nursing protocol. Once exam is complete flush line and de-access according to line specific nursing protocol in the CT contrast administration guidelines link. 1 Each 09/03/2024 09/04/2024 Active Start: 04-28-2023 End: 04-29-2023 iv contrast (will be provide d with [...] 3 billion cell capsule (1 source) End: 07-25-19 24 lactobacillus combination no.4 (Probiotic) 3 billion cell capsule Take 1 capsule by mouth once daily. 0 07/25/2023 Discontinued (Therapy completed) loperamide hydrochloride 2 mg oral capsule (2 sources) Opioid Agonist Start: 08-30-19 24 loperamide (Imodium) 2 MG capsule 08/30/2023 Active Comment on above: Take 1 capsule by mo [facility] before meals and at bedtime. magnesium gluconate 500 mg oral tablet (1 source) take 1 tablet by mouth once daily magnesium, as gluconate, (Mag-G) 27 mg magnesium (500 mg) tablet Take 1 tablet (27 mg) by mouth once daily. 0 Active Tbgjtted-Qpq-Xhyc-Fa- Lutein (Multivitamin Women 50 Plus) 8 mg iron-400 mcg-300 mcg Tablet (3 sources) Start: 11-03-19 take 1 tablet by mouth once daily Irwjyyik-Hww-Jino-Fa -Lutein (Multivitamin Women 50 Plus) 8 mg iron-400 mcg-300 mcg Tablet Active 1 TAB PO Daily November 01, 2018 11:00pm Start: 11-02-2018 [facility] Glugbjub-Ifz-Aifn-Fa-Lutein (Multivitami n Women 50 Plus) 8 mg iron-400 mcg-300 mcg Tablet Active 1 TAB PO Daily November 02, 2018 12:00am Multivitamin Gummies Womens - (20 sources) Multivitamin Gum mies Womens - Orally Active Eucha 3 Fish Oil (20 sources) Eucha 3 Fish Oil one oral daily Active omega 7-abt-ppu-fish oil (Fish OiL) 1,000 mg (120 mg-180 mg) capsule (1 source) take 1 capsule by mouth once daily omega 4-cve-cdd-fish oil (Fish OiL) 1,000 mg (120 mg-180 mg) capsule Take 1 capsule (1,000 mg) by mouth once daily. 0 Active Eucha-3 Fatty Acids (Fish Oil) 1200 MG capsule delayed-release (1 source) take 1 capsule by mouth once daily Eucha-3 Fatty Acids (Fish Oil) 1200 MG capsule delayed-release Take 1,200 mg by mouth Daily Active omeprazole 40 mg delayed release oral capsule (20 sources) Proton Pump Inhibitor Start: 8 End: 4 take 1 capsule by mouth once daily omeprazole (PRILOSEC) 40 mg capsule Take 40 mg by mouth once daily. 07/09/2018 Active Comment on above: Take 1 capsule by mo [facility] every afternoon. Take 40 mg by mouth once daily. 24 hr oxybutynin chloride 15 mg extended release oral tablet (20 sources) Cholinergic Muscarinic Antagonist Start: 3 take 1 tablet by mouth every twenty-four hours oxybutynin ER (DITROPAN XL) 15 mg 24 hr Extended Rel Tab Take 15 mg by mouth. 11/11/2022 Active Start: 02-28-2018 End: 05-08-2024 take 1 tablet by mouth once daily Oxybutynin Chloride 15 mg tablet extended release 24hr Discontinued 15 MG PO Daily November 02, 2018 12:00am May 08, 2024 12:03pm Comment on above: Take 15 mg by [...] Comment on above: Take 1 tablet by [facility] every 6 hours as needed for up to 7 days. polyethylene glycol [id number] mg / potassium chloride 2970 mg / sodium bicarbonate 6740 mg / sodium chloride 5860 mg / sodium sulfate 68832 mg powder for oral solution (3 sources) [...] on above: Take 2 tablets by mo [facility] every 8 hours. acetaminophen 325 mg / HYDROcodone bitartrate 5 mg oral tablet (20 sources) Opioid Agonist Start: 08-26-2024 End: 09-10-2024 take 1 tablet by mouth every four to six hours as needed for pain Hydrocodone-Acetami nophen 5-325 mg tablet Discontinued 1 - 2 TAB PO EVERY 4-6 HOURS as needed for pain 26 01September 04, 2024 September 10, 2024 12:43pm dispense #20 (twenty) dx: postop Start: 06-11-2024 End: 06-11-2024 take 1 tablet by mouth every four to six hours as needed for pain Hydrocodone-Acetaminophen 5-325 mg table t Discontinued 1 - 2 TAB PO EVERY 4-6 HOURS as needed for pain 06 11June 11, 2024 June 11, 2024 12:47pm Start: 05-31-2024 End: 08-20-2024 take 1 tablet by mouth every four to six hours as needed for pain Hydrocodone-Acetaminophen 5-325 mg table t Discontinued 1 - 2 TAB PO EVERY 4-6 HOURS as needed for pain 06 11June 11, 2024 August 20, 2024 9:52am Dispense: 30 (thirty) Diagnosis: L08.9 Start: 05-22-2024 End: 05-31-2024 take 1 tablet by mouth every eight hours as needed for pain Hydrocodone-Acetaminophen 5-325 mg table t Discontinued 1 TAB PO Every 8 hours as needed for pain 7 2 May 22, 2024 May 31, 2024 12:28pm Start: 06-26-2023 End: 09-30-2023 take 1 tablet by mouth every six hours as needed for pain Hydrocodone-Acetaminophen 5-325 mg table t Discontinued 1 TAB PO Q6H as needed for pain 20 June 26, 2023 September 30, 2023 7:51am acetaminophen 325 mg / oxyCODONE hydrochloride 5 mg oral tablet (14 sources) Opioid Agonist Start: 05-22-2024 End: 05-31-2024 Oxycodone-Acetaminophen 5-325 mg tablet Discontinued 1 TAB PO As Directed May 22, 2024 1:00am May 31, 2024 12:27pm ALPRAZolam 0.25 mg oral tablet (20 sources) Benzodiazepine Start: 11-23-2023 End: 08-20-2024 take 1 tablet by mouth twice daily Alprazolam (Xanax) 0.25 mg tablet Discontinued 0.25 MG PO Twice daily November 23, 2023 8:30am May 31, 2024 12:29pm Start: 08-19-2022 End: 07-25-2023 take 1 tablet [...] capsule Discontinued 1 CAP PO Daily September 30, 2023 12:00am November 23, 2023 8:15am Start: 02-28-2018 End: 09-07-2023 take 1 tablet by mouth once daily Amlodipine-Benazepril 5-10 mg capsule Discontinued 1 TAB PO Daily November 02, 2018 12:00am September 07, 2023 9:32am Comment on above: Take 1 capsule by [facility] every morning. amoxicillin 500 mg oral tablet (20 sources) Penicillin-class Antibacterial Start: 06-13-20 End: 09-03-19 Amoxicillin 500 mg tablet FOR DENTAL WORK 06/13/2023 09/03/2024 Discontinued Comment on above: FOR DENTAL WORK atropine sulfate 0.025 mg / diphenoxylate hydrochloride 2.5 mg oral tablet (1 source) Anticholinergic, Cholinergic Muscarinic Antagonist, Antidiarrheal Start: 07-12-19 24 take 1 tablet by mouth four times daily as needed diphenoxylate-atropin e (LOMOTIL) 2.5-0.025 mg per tablet Indications: Rectal adenocarcinoma (HCC) , Diarrhea of presumed infectious origin Take 1 tablet by mouth four times a day as needed for up to 30 days. 30 tablet 1 07/12/2023 Active Comment on above: Take 1 tablet by [facility] four times a day as needed for up to 30 days. azithromycin 250 mg oral tablet (13 sources) Macrolide Antimicrobial Start: 07-09-20 End: 08-14-19 Azithromycin (Zithromax Z-Lazaro) 250 mg tablet Discontinued 0 PO .COMPLEX 6 July 09, 2024 1:00am August 14, 2024 1:52pm For 250 mg dose pack: take 500 mg today (day 1), then 250 mg for 4 days (days 2-5) PO Start: 05-25-2021 Zithromax Z-Pa k 250 MG 2 tablet on the first day, then 1 tablet daily for 4 days Orally Once a day for 5 day(s) May, Active 12 hr buPROPion hydrochloride 90 mg [...] / vitamin k 0.4 mg chewable tablet (20 sources) Vitamin D Start: 11-03-19 End: 06-26-20 take 2 tablets by mouth once daily Calcium-Vitamin D3-Vitamin K (Citracal-D3 Soft Chew) 500 mg-1,000 unit-40 mcg Tablet,Chewable Discontinued 2 TAB PO Daily November 02, 2018 12:00am June 26, 2023 11:46am capecitabine 500 mg oral tablet (20 sources) Nucleoside Metabolic Inhibitor Start: 04-05-20 End: 06-26-20 Capecitabine 500 mg Tablet Discontinued MG TABLET April 05, 2023 12:00am June 26, 2023 11:48am Start: 04-05-2023 End: 06-26-2023 Capecitabine Discontinued MG [...] of radiation. cephalexin 500 mg oral capsule (14 sources) Cephalosporin Antibacterial Start: 05-22-20 End: 06-11-20 24 take 1 capsule by mouth twice daily Cephalexin 500 mg capsule Discontinued 500 MG PO Twice daily May 22, 2024 1:00am June 11, 2024 2:10pm compounded progesterone 50 mg capsule (20 sources) End: 02-06-20 take 3 capsules by mouth once daily [...] by jaci th two times a day. doxycycline hyclate 100 mg oral tablet (20 sources) Tetracycline-cla ss Drug Start: 08-26-2024 End: 09-27-2024 take 1 tablet by mouth twice daily Doxycycline Hyclate 100 mg tablet Discontinued 100 MG PO Twice daily September 04, 2024 1:00am September 27, 2024 11:50am Start: 05-31-2024 End: 08-20-2024 take 1 tablet by mouth twice daily Doxycycline Hyclate 100 mg tablet Discontinued 100 MG PO Twice daily 20 August 14, 2024 2:04pm August 20, 2024 9:52am esomeprazole 20 mg delayed release oral capsule (20 sources) Proton Pump Inhibitor Start: 11-02-2018 End: 03-06-2023 take 1 capsule by mouth once daily Esomeprazole Magnesium (Nexium) 20 mg Capsule,Delayed Release(Dr/Ec) Discontinued 20 MG PO Daily November 02, 2018 12:00am March 06, 2023 8:54am ferrous sulfate 325 mg oral tablet (20 sources) Start: 04-06-2023 End: 06-26-2023 take 1 tablet by mouth once daily Ferrous Sulfate (Ferosul) 325 mg (65 mg iron) tablet Discontinued 325 MG PO Daily April 06, 2023 12:00am June 26, 2023 11:48am Fish Oil CAPS (1 source) Fish Oil CAPS TA KE 1 CAPSULE Daily Quantity: 0 Refills: 0 Ordered: 26-Oct-2022 DO Active gabapentin 100 mg oral capsule (20 sources) Anti-epileptic Agent Start: 11-21-2023 End: 05-31-2024 take 1 capsule by mouth three times daily Gabapentin 100 mg capsule Discontinued 100 MG PO Three times daily November 23, 2023 12:00am May 31, 2024 12:28pm ibandronic acid 150 mg oral tablet (20 sources) Bisphosphonate Start: 11-02-2018 End: 03-06-2023 take 1 tablet by mouth every month Ibandronate (Boniva) 150 mg Tablet Discontinued 150 MG PO every month November 02, 2018 12:00am March 06, 2023 9:00am Lactobacillus acidophilus (20 sources) End: 06-20-2023 Lactobacillus acidophilus (PROBIOTIC ORAL) Take by mouth. 06/20/2023 Discontinued End: 06-20-2023 Lactobacillus acidophilus (P ROBIOTIC ORAL) Take by mouth. 0 06/20/2023 Discontinued Lactobacillus ac idophilus (PROBIOTIC ORAL) Take by mouth. 0 Active Comment on above: Take by mouth. Lactobacillus Comb No.10 (Probiotic) 20 billion cell Capsule (20 sources) Start: 03-06-2023 End: 06-11-2024 Lactobacillus Comb No.10 (Probiotic) 20 billion cell Capsule Discontinued 78519 MMU CELLS PO Daily March 06, 2023 12:00am June 11, 2024 2:10pm administer with a meal Start: 03-06-2023 End: 06-11-2024 Lactobacillus Comb No.10 (Pr obiotic) 20 billion cell Capsule Discontinued 00406 MMU CELLS PO Daily March 05, 2023 11:00pm June 11, 2024 1:10pm administer with a meal Start: 03-06-2023 Lactobacillus Comb No.10 (Probiotic) 20 billion cell Capsule Active 93964 MMU CELLS PO Daily March 05, 2023 11:00pm administer with a meal Start: 03-06-2023 Lactobacillus Comb No.10 (Probiotic) 20 billion cell Capsule Active 88989 MMU CELLS PO Daily March 06, 2023 12:00am administer with a meal Magnesium (20 sources) Start: 03-06-2023 End: 11-23-2023 take 1 tablet by mouth once daily Magnesium 500 mg Tablet Discontinued 500 MG PO Daily March 06, 2023 12:00am November 23, 2023 8:15am Start: 03-06-2023 End: 11-23-2023 take 1 tablet by mouth once daily Magnesium 500 mg Tablet Discontinued 500 MG PO Daily March 05, 2023 11:00pm November 23, 2023 7:15am Start: 03-06-2023 take 500 mg by mouth once belinda y Magnesium Active 500 MG PO Daily March 05, 2023 11:00pm Start: 03-06-2023 take 500 mg by mouth once belinda y Magnesium Active 500 MG PO Daily March [...] oral tablet (20 sources) Nonsteroidal Anti-inflammatory Drug Start : 02-27 End: 08-08 take 1 tablet by mouth once daily Meloxicam 15 mg tablet Discontinued 15 MG PO Daily 90 90 April 30, 2024 1:32pm August 08, 2024 9:33am Comment on above: Take 1 tablet by [facility] every afternoon. Take 1 tablet by [facility] once daily. methylPREDNISolone 4 mg oral tablet (17 sources) Corticosteroid Start : 07-09 End: 08-20 take 1 tablet by mouth once Methylprednisolone (Medrol (Lazaro)) 4 mg tablets,dose pack Discontinued 0 PO per package directions July 09, 2024 1:00am August 20, 2024 9:53am PO PER PKG DIR Start: 05-25-2021 Medrol 4 MG as directed Orally May, Not-Taking metroNIDAZOLE 500 mg oral tablet (1 source) Nitroimidazole Antimicrobial Start: 08-03-2023 take 1 tablet by mouth three times daily metroNIDAZOLE (FLAGYL) 500 mg tablet Indications: Rectal cancer (HCC) Take 1 tablet by mouth three times a day. Take 1 tablet at 6pm, 7pm, and 11pm, the evening prior to surgery. 3 tablet 0 08/03/2023 Active Comment on above: Take 1 tablet by [facility] three times a day. Take 1 tablet at 6pm, 7pm, and 11pm, the evening prior to surgery. Multivit With Min-Folic Acid (Adult Multivitamin Gummies) 120 mcg tablet,chewable (14 sources) Start: 10-30-2023 End: 11-23-2023 take 1 tablet by mouth once daily Multivit With Min-Folic Acid (Adult Multivitamin Gummies) 120 mcg tablet,chewable Discontinued 1 TAB PO Daily October 30, 2023 12:00am November 23, 2023 8:15am Start: 10-30-2023 End: 11-23-2023 take 1 tablet by mouth once daily Multivit With Min-Folic Acid (Adult Multivitamin Gummies) 120 mcg tablet,chewable Discontinued 1 TAB PO Daily October 29, 2023 11:00pm November 23, 2023 7:15am Ewyijjfh-Kxz-Vkwg-Fa-Vit K-Lut (Multivitamin Women 50 Plus) 8 mg iron-400 mcg-300 mcg Tablet (20 sources) Start: 11-02-2018 End: 03-06-2023 take 1 tablet by mouth once daily Xaxavixs-Sae-Avds-Fa-Vit K-Lut (Multivitamin Women 50 Plus) 8 mg iron-400 mcg-300 mcg Tablet Discontinued 1 TAB PO Daily November 01, 2018 11:00pm March 06, 2023 8:01am Start: 11-02-2018 End: 03-06-2023 take 1 tablet by mouth once daily Puypmsiu-Wxe-Dsmv-Fa-Vit K-Lut (Multivitamin Women 50 Plus) 8 mg iron-400 mcg-300 mcg Tablet Discontinued 1 TAB PO Daily November 02, 2018 12:00am March 06, 2023 9:01am naproxen 500 mg oral tablet (20 sources) Nonsteroidal Anti-inflammatory Drug Start: 11-02-2018 End: 03-06-2023 take 1 tablet by mouth once daily Naproxen 500 mg tablet Discontinued 500 MG PO Daily November 02, 2018 12:00am March 06, 2023 8:56am take 1 tablet by [facility] every twelve hours at mealtime as [...] on above: Take 2 tablets by mo [facility] as directed. Take 2 tablet at [...] if no relief up to 3 times. Eucha 1-Pws-Ybq-Fish Oil (Fish Oil) 1,000 mg (120 mg-180 mg) Capsule (20 sources) Start: 11-02-2018 End: 05-31-2024 take 1 capsule by mouth once daily Eucha 8-Mtb-Zuj-Fish Oil (Fish Oil) 1,000 mg (120 mg-180 mg) Capsule Discontinued 1 CAP PO Daily November 02, 2018 12:00am May 31, 2024 12:29pm Start: 11-02-2018 End: 05-31-2024 take 1 capsule by mouth once daily Eucha 4-Hzb-Bgl-Fish Oil (Fish Oil) 1,000 mg (120 mg-180 mg) Capsule Discontinued 1 CAP PO Daily November 01, 2018 11:00pm May 31, 2024 11:29am Start: 11-02-2018 take 1 capsule by [facility] once daily Eucha 6-Xvj-Zcp-Fish Oil (Fish Oil) 1,000 mg (120 mg-180 mg) Capsule Active 1 CAP PO Daily November 01, 2018 11:00pm Start: 11-02-2018 take 1 capsule by [facility] once daily Eucha 2-Rbx-Lil-Fish Oil (Fish Oil) 1,000 mg (120 mg-180 mg) Capsule Active 1 CAP PO Daily November 02, 2018 12:00am ondansetron 4 mg oral tablet (20 sources) Serotonin-3 Receptor Antagonist Start: 05-22-2024 End: 06-11-2024 take 1 tablet by mouth every eight hours as needed for nausea and vomiting Ondansetron Hcl 4 mg tablet Discontinued 4 MG PO Every 8 hours as needed for nausea and vomiting May 22, 2024 1:00am June 11, 2024 2:11pm Start: 03-21-2023 End: 02-06-2024 take 1 tablet [...] as needed for nausea/vomiting. 90 tablet 2 02/07/2024 9:47 AM EDT 02/06/2024 Active Comment on above: Take 1 tablet by jaci every 8 hours as needed for nausea/vomiting. phenazopyridine hydrochloride 100 mg oral tablet (10 sources) Start: 2022 End: 2022 take 2 tablets by mouth every eight hours as needed phenazopyridine (PYRIDIUM) 100 mg tablet Take 2 tablets by mouth three times a day as needed. 30 tablet 2 05/01/2023 06/20/2023 Discontinued Comment on above: Take 2 tablets by mo [facility] three times a day as needed. polyethylene glycol 3350 83176 mg powder for oral solution (20 sources) Osmotic Laxative Start: 2022 End: 2023 Polyethylene Glycol 3350 (Miralax) 17 gram Powder In Packet Discontinued 17 GM PO Daily as needed for Constipation April 05, 2023 12:00am September 30, 2023 7:52am Comment on above: Take by mouth once d aily. Dissolve dose in 4 - 8 ounces of liquid and take as directed. potassium 99 mg extended release oral tablet (20 sources) Start: 2022 End: 2022 take 1 tablet by mouth once daily Potassium 99 mg Tablet Discontinued 99 MG PO Daily March 06, [...] PO Q6H as needed for Nausea April 05, 2023 12:00am November 23, 2023 8:16am Comment on above: Take 1 tablet by jaci th every 6 hours as needed. progesterone 100 mg oral capsule (20 sources) Progesterone Start: 06-26-2023 End: 11-23-2023 take 1 capsule by mouth once daily Progesterone Micronized 100 mg Capsule Discontinued 150 MG PO Daily June 26, 2023 1:00am November 23, 2023 8:16am Start: 06-26-2023 take 150 mg by mouth once daily Progesterone Micronized Active 150 MG PO Daily June 26, 2023 1:00am Start: 04-05-2023 End: 06-26-2023 Progesterone 50 mg/mL Oil Discontinued MG IM April 05, 2023 12:00am June 26, 2023 11:50am Start: 04-05-2023 End: 06-26-2023 Progesterone Discontinued MG [...] mg / trimethoprim 160 mg oral tablet (14 sources) Dihydrofolate Reductase Inhibitor Antibacterial, Sulfonamide Antimicrobial Start: 05-22-2024 End: 06-11-2024 Sulfamethoxazole- Trimethoprim 800-160 mg tablet Discontinued 1 TAB PO As Directed May 22, 2024 1:00am June 11, 2024 2:11pm 2500 mg testosterone 0.01 mg/mg topical gel (20 sources) Androgen Start: 04-05-2023 End: 09-30-2023 Testosterone 1 % (25 mg/2.5gram) Gel In Packet Discontinued 1 PACKET TRANSDERML Daily April 05, [...] MIL traMADol hydrochloride 50 mg oral tablet (20 sources) Opioid Agonist Start: 11-10-19 End: 03-06-20 take 1 tablet by mouth every four hours as needed for pain Tramadol 50 mg Tablet Discontinued 50 MG PO Q4H as needed for Pain 26 01November 09, 2018 12:00am March 06, 2023 8:57am triamcinolone acetonide 32 mg injection (20 sources) Corticosteroid Start: 02-12-20 22 Zilretta May, 32 mg Tumeric Curcumin Complex (20 sources) Start: 11-03-19 End: 03-06-20 take 2 [...] tablet Discontinued 75 MG PO Daily November 02, 2018 12:00am March 06, 2023 9:01am Comment on above: Take one(1) tablet d rachel. Vitamin D3-Vitamin K2 (Mk4) (K2 Plus D3) 1,000-100 unit-mcg Tablet (20 sources) Start: 04-05-2023 End: 06-26-2023 take 1 [...] 1 Dose by mouth once daily. vortioxetine 10 mg oral tablet (20 sources) Start: 10-03-2022 End: 09-03-2024 take 1 tablet by mouth once daily Vortioxetine 10 mg tablet Discontinued 10 MG PO Daily October 30, 2023 12:00am August 20, 2024 9:54am Free[employer]Si tablet Orally Once a day; Note: Source Status: Taking; Provider: Dixie Lim Start: 09-01-2022 End: 10-30-2023 take 1 tablet by mouth once daily Vortioxetine (Trintellix) 5 mg tablet Discontinued 5 MG PO Daily October 26, 2023 12:00am October 30, 2023 1:38pm vortioxetine (TR INTELLIX) 5 mg tablet Take [...] anxiety disorders] Onset: 4 Chronic Cancer of colon (1 source) Personal history of other malignant neoplasm of large intestine; Translations: [History of colon cancer] Onset: 5 Episodic Cancer of rectum and anus (20 sources) Adenocarcinoma of rectum; Translations: [Malignant neoplasm of rectum] Onset: 3 03-07-2023 Chronic Cancer of rectum and anus (13 sources) History of malignant neoplasm of rectum; [...] disease Onset: 7 Diabetes mellitus without complication (20 sources) Hyperglycemia; Translations: [Hyperglycemia, unspecified] Onset: 4 [...] for follow-up examination after completed treatment for malignant neoplasm; Translations: [Encounter for follow-up examination after completed treatment for malignant neoplasm] Onset: 5 Episodic Other connective tissue disease (3 sources) Muscle finding; Translations: [Myalgia, unspecified site] 04-25-2023 Episodic Other connective tissue disease (1 source) Pain in unspecified limb; Translations: [Pain in unspecified limb] Onset: 5 Episodic Other connective tissue disease (2 sources) Spasm; Translations: [Other muscle spasm] 01-28-2025 Episodic Other connective tissue disease (1 source) Other muscle spasm; Translations: [Muscle spasm] Onset: 5 Episodic Other disorders of stomach and duodenum (1 source) Functional dyspepsia; Translations: [Dyspepsia] Episodic Other gastrointestinal disorders (20 sources) Ileostomy present; Translations: [Ileostomy status] Onset: 4 08-31-2023 Chronic Other gastrointestinal disorders (20 sources) Ileostomy bag changed; Translations: [Encounter for attention to ileostomy] Onset: 4 08-31-2023 Chronic Other gastrointestinal disorders (3 sources) Ileostomy status; Translations: [Ileostomy status] Onset: 4 10-01-2023 Chronic Other gastrointestinal disorders (1 source) Encounter for attention to ileostomy; Translations: [Attention to ileostomy (HCC)] Onset: 4 Chronic Other gastrointestinal disorders (6 [...] [Other specified diseases of intestine] Episodic Other nervous system disorders (20 sources) Carpal tunnel syndrome of right wrist; Translations: [Carpal tunnel syndrome, right upper limb] Chronic Other nervous system disorders (1 source) Carpal tunnel syndrome of left wrist; Translations: [Carpal tunnel syndrome, left upper limb] Onset: 3 06-19-2023 Chronic Other nervous system disorders (20 sources) Acute postoperative pain; Translations: [Other acute postprocedural pain] Onset: 4 06-26-2023 Episodic Other nervous system disorders (2 sources) Other acute postprocedural pain; Translations: [Post-op pain] Onset: 4 Episodic Other nervous system disorders (11 sources) Pain in limb; Translations: [Other acute postprocedural [...] adult] Onset: 4 Episodic Residual codes; unclassified (20 sources) Other specified postprocedural states; Translations: [Other postprocedural status] Onset: 5 06-11-2024 Episodic Residual codes; unclassified (7 sources) Postprocedural state finding; Translations: [Other specified postprocedural states] 09-04-2024 Episodic Skin and subcutaneous tissue infections (20 sources) Cellulitis; Translations: [Cellulitis, unspecified] Onset: 4 [...] / R94.39(ICD-9) Onset: 7 Unclassified (1 source) Physical Therapy Onset: 5 Viral infection (20 sources) COVID-19; Translations: [Pneumonia due to COVID-19 virus] Onset: 4 06-03-2021 Episodic Past or Other Problems Problem Classification Problem Date Documented Da te Episodic/Chronic Abdominal pain (6 sources) Indigestion; Translations: [Epigastric pain] Onset: 11-06-2023 04-06-2023 Episodic Deficiency and other anemia (20 [...] Onset: 04-28-2009 04-28-2009 Episodic Nausea and vomiting (4 sources) Vomiting; Translations: [Vomiting, unspecified] Onset: 11-06-2023 10-26-2023 Episodic Other circulatory disease (4 sources) H/O: atrial fibrillation; Translations: [Personal history of other diseases of circulatory system] Onset: 07-20-2023 07-25-2023 Episodic Other connective tissue disease (1 source) Pain in right hand; Translations: [Pain in right hand] Onset: 05-31-2024 Episodic Other connective tissue disease (1 source) Pain in right finger(s); Translations: [Pain in right finger(s)] Onset: 05-22-2024 Episodic Other gastrointestinal disorders (5 sources) Other specified symptoms and signs involving the digestive system and abdomen; Translations: [Other symptoms involving digestive system] Onset: 11-05-2024 01-09-2024 Episodic Other non-traumatic joint disorders (1 source) [...] source) Onset: 07-25-2023 07-25-2023 Urinary tract infections (5 sources) Acute urinary tract infection; Translations: [Urinary tract infection, site not specified] Onset: 01-12-2024 10-26-2023 Episodic Results Test Name Value Interpretation Reference Range Facility OV 02-20-2025 CNOV Office Visit ([facility]ILO ) ----- EVAN GILL ([id number]) 1955 F Date Time Provider Department 02/20/25 1:20 PM LAISHA SINGER During your visit today, we recorded the following information about you: Pulse Blood pressure Weight Height 67/minute 124/66 66.4 kg 1.626 m Laisha Singer MD 02/21/2025 5:20 PM Signed COLORECTAL SURGERY February 20, 2025 Evan Gill 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 General Appearance: Well appearing, alert, in no acute distress, well-hydrated, well nourished. Abdomen: soft ND NT incisions well healed no hernia Assessment Assessment and Plan: Evandiane Gill is a 69 year old female who [...] PT Medical Decision Making: Data Reviewed: Tests AND Documents Reviewed/ordered: Review of prior notes from [facility], med onc, GI Review of prior operative (more content not included)... Normal [facility] CNOVSPon 02-20-2025 CNOVSP Visit (SP) Office ([facility]) ----- JAIROEVAN ([id number]) 1955 F Date Time Provider Department 02/20/25 2:00 PM TAPAN CORONA During your visit today, we recorded the following information about you: Temperature Pulse Respiration Blood pressure 99.4 degrees 67/minute 18/minute 121/78 Weight Height 66.3 kg 1.626 m Tapan Corona MD 02/20/2025 2:27 PM Signed PATIENT NAME: Evan Gill CLINIC NO.: [id number] ATTENDING PHYSICIAN: Tapan Corona MD DATE OF SERVICE: February 20, 2025 Some of the elements of this note have been copied from my previous progress note dated 09/03/2024. All the information has been reviewed carefully. Dear Dr. Bazzi here is an update on a follow up visit on female Evan Gill at the clinic February 20, 2025 Diagnosis: [...] 10/2023, 01/2024, 08/2024- Negative. 02/2025- Pending HPI: Evan Gill is a 69 year old year old [...] 2.6 oz (66.3kg) SpO2 99% BMI 25.08 kg/(m2). Wt 61.8 kg (136 lb 3.2 [...] Value 02/10/2025 103 AST (U/L) Date Value (more content not included)... Normal [facility] CNTHERAPYon 02-19-2025 CNTHERAPY [facility] EVAN GILL ([id number]) 1955 F Date Time Provider Department 02/19/25 1:00 PM CHAPINCITO ANTHONY [facility] Date Time Provider Department Center 02/19/2025 1:00 PM [id number] ANTHONY [facility] Reason for Visit: Physical Therapy [503] Primary Visit Diagnosis:Muscle spasm [M62.838] Allergies As of Date: 02/19/2025 (No Known Allergies) Date Reviewed: 10/31/2024 Reviewed by: Laisha Singer MD - Fully Assessed Prescriptions as of 02/19/2025 - LEXAPRO 10 mg tablet - meloxicam (MOBIC) 15 mg tablet Take 15 mg by mouth once daily. - ondansetron orally disintegrating (ZOFRAN ODT) 8 mg disintegrating tablet Take 1 tablet by mouth every 8 hours as needed for nausea/vomiting. - omeprazole (PRILOSEC) 40 mg capsule Take 40 mg by mouth once daily. - oxybutynin ER (DITROPAN XL) 15 mg 24 hr Extended Rel Tab Take 15 mg by mouth. - aspirin, enteric coated (ASPIRIN, ENTERIC COATED) 81 mg EC tablet Take 81 mg by mouth once daily. Normal [facility] CBC W Auto Differential pane l (Bld)on 02-10-2025 Basophils (Bld) [#/Vol] 0.04 10*3/uL [facility] Basophils/100 WBC (Bld) 0.7 % [facility] Differential cell count method Nom (Bld) Auto [facility] Eosinophils (Bld) [#/Vol] 0.25 10*3/uL [facility] Eosinophils/100 WBC (Bld) 4.1 % [facility] Erythrocyte distribution width (RBC) [Ratio] 13.5 % 11.5 - 15.0 % [facility] Hematocrit (Bld) [Volume fraction] 34.2 % Low 36.0 - 46.0 % [facility] Hemoglobin (Bld) [Mass/Vol] 11.1 g/dL Low 11.5 - 15.5 g/dL [facility] Immature granulocytes (Bld) [#/Vol] 0.04 10*3/uL [facility] Immature granulocytes/100 WBC (Bld) 0.7 % [facility] Interpretation and review of laboratory results Abnormal [facility] Lymphocytes (Bld) [#/Vol] 1.52 10*3/uL [facility] Lymphocytes/100 WBC (Bld) 25.1 % [facility] MCH (RBC) [Entitic mass] 29 pg 26.0 - 34.0 pg [facility] MCHC (RBC) [Mass/Vol] 32.5 g/dL 30.5 - 36.0 g/dL [facility] MCV (RBC) [Entitic vol] 89.3 fL 80.0 - 100.0 fL [facility] Monocytes (Bld) [#/Vol] 0.51 10*3/uL [facility] Monocytes/100 WBC (Bld) 8.4 % [facility] Neutrophils (Bld) [#/Vol] 3.69 10*3/uL [facility] Neutrophils/100 WBC (Bld) 61 % [facility] Nucleated RBC (Bld) [#/Vol] NINF [facility] Nucleated RBC/100 WBC (Bld) [Ratio] 0 % /100 WBC [facility] Platelet mean volume (Bld) [Entitic vol] 8.5 fL Low 9.0 - 12.7 fL [facility] Platelets (Bld) [#/Vol] 266 10*3/uL [facility] RBC (Bld) [#/Vol] 3.83 10*6/uL Low 3.90 - 5.20 m/uL [facility] WBC (Bld) [#/Vol] 6.05 10*3/uL [facility] Basophils (Bld) [#/Vol] 0.04 10*3/uL Normal <0.11 [facility] Comment on above: Order Comment: Speci men Type: BLOOD SPECIMEN Ordering Facility: [facility] Address: [address] [place] [address] Performed By: #### 5 7021-8 #### [facility] CLIA [id number] [address] [place] [address]773 Basophils/100 WBC (Bld) 0.7 % Normal [facility] Comment on above: Order Comment: Speci men Type: BLOOD SPECIMEN Ordering Facility: [facility] Address: [address] [place] [address] Performed By: #### 5 7021-8 #### [facility] CLIA [id number] [address] [place] [address]12 Differential cell count method Nom (Bld) Auto Normal [facility] Comment on above: Order Comment: Speci men Type: BLOOD SPECIMEN Ordering Facility: [facility] Address: [address] [place] [address] Performed By: #### 5 7021-8 #### [facility] CLIA [id number] [address] [place] [address]3705 Eosinophils (Bld) [#/Vol] 0.25 10*3/uL Normal <0.46 [facility] Comment on above: Order Comment: Speci men Type: BLOOD SPECIMEN Ordering Facility: [facility] Address: [address] [place] [address] Performed By: #### 5 7021-8 #### [facility] CLIA [id number] [address] [place] [address] 00153 Eosinophils/100 WBC (Bld) 4.1 % Normal [facility] Comment on above: Order Comment: Speci men Type: BLOOD SPECIMEN Ordering Facility: [facility] Address: [address] [place] [address] Performed By: #### 5 7021-8 #### [facility] CLIA [id number] [address] [place] [address] 96943 Erythrocyte distribution width (RBC) [Ratio] 13.5 % Normal 11.5-15.0 [facility] Comment on above: Order Comment: Speci men Type: BLOOD SPECIMEN Ordering Facility: [facility] Address: [address] [place] [address] Performed By: #### 5 7021-8 #### [facility] CLIA [id number] [address] [place] [address]35 Hematocrit (Bld) [Volume fraction] 34.2 % Low 36.0-46.0 [facility] Comment on above: Order Comment: Speci men Type: BLOOD SPECIMEN Ordering Facility: [facility] Address: [address] [place] [address] Performed By: #### 5 7021-8 #### [facility] CLIA [id number] [address] [place] [address] 83497 Hemoglobin (Bld) [Mass/Vol] 11.1 g/dL Low 11.5-15.5 [facility] Comment on above: Order Comment: Speci men Type: BLOOD SPECIMEN Ordering Facility: [facility] Address: [address] [place] [address] Performed By: #### 5 7021-8 #### [facility] CLIA [id number] [address] [place] [address] Immature granulocytes (Bld) [#/Vol] 0.04 10*3/uL Normal <0.10 [facility] Comment on above: Order Comment: Speci men Type: BLOOD SPECIMEN Ordering Facility: [facility] Address: [address] [place] [address] Performed By: #### 5 7021-8 #### [facility] CLIA [id number] [address] [place] [address]167 Immature granulocytes/100 WBC (Bld) 0.7 % Normal [facility] Comment on above: Order Comment: Speci men Type: BLOOD SPECIMEN Ordering Facility: [facility] Address: [address] [place] [address] Performed By: #### 5 7021-8 #### [facility] CLIA [id number] [address] [place] [address]806 Lymphocytes (Bld) [#/Vol] 1.52 10*3/uL Normal 1.00-4.00 [facility] Comment on above: Order Comment: Speci men Type: BLOOD SPECIMEN Ordering Facility: [facility] Address: [address] [place] [address] Performed By: #### 5 7021-8 #### [facility] CLIA [id number] [address] [place] [address]20 Lymphocytes/100 WBC (Bld) 25.1 % Normal [facility] Comment on above: Order Comment: Speci men Type: BLOOD SPECIMEN Ordering Facility: [facility] Address: [address] [place] [address] Performed By: #### 5 7021-8 #### [facility] CLIA [id number] [address] [place] [address] 48751 MCH (RBC) [Entitic mass] 29.0 pg Normal 26.0-34.0 [facility] Comment on above: Order Comment: Speci men Type: BLOOD SPECIMEN Ordering Facility: [facility] Address: [address] [place] [address] Performed By: #### 5 7021-8 #### [facility] CLIA [id number] [address] [place] [address]239 MCHC (RBC) [Mass/Vol] 32.5 g/dL Normal 30.5-36.0 [facility] Comment on above: Order Comment: Speci men Type: BLOOD SPECIMEN Ordering Facility: [facility] Address: [address] [place] [address] Performed By: #### 5 7021-8 #### [facility] CLIA [id number] [address] [place] [address] 39826 MCV (RBC) [Entitic vol] 89.3 fL Normal 80.0-100.0 [facility] Comment on above: Order Comment: Speci men Type: BLOOD SPECIMEN Ordering Facility: [facility] Address: [address] [place] [address] Performed By: #### 5 7021-8 #### [facility] CLIA [id number] [address] [place] [address] 22947 Monocytes (Bld) [#/Vol] 0.51 10*3/uL Normal <0.87 [facility] Comment on above: Order Comment: Speci men Type: BLOOD SPECIMEN Ordering Facility: [facility] Address: [address] [place] [address] Performed By: #### 5 7021-8 #### [facility] CLIA [id number] [address] [place] [address] 42510 Monocytes/100 WBC (Bld) 8.4 % Normal [facility] Comment on above: Order Comment: Speci men Type: BLOOD SPECIMEN Ordering Facility: [facility] Address: [address] [place] [address] Performed By: #### 5 7021-8 #### [facility] CLIA [id number] [address] [place] [address] 54087 Neutrophils (Bld) [#/Vol] 3.69 10*3/uL Normal 1.45-7.50 [facility] Comment on above: Order Comment: Speci men Type: BLOOD SPECIMEN Ordering Facility: [facility] Address: [address] [place] [address] Performed By: #### 5 7021-8 #### [facility] CLIA [id number] [address] [place] [address] 73060 Neutrophils/100 WBC (Bld) 61.0 % Normal [facility] Comment on above: Order Comment: Speci men Type: BLOOD SPECIMEN Ordering Facility: [facility] Address: [address] [place] [address] Performed By: #### 5 7021-8 #### [facility] CLIA [id number] [address] [place] [address] 76865 Nucleated RBC (Bld) [#/Vol] 10*3/uL Normal <0.01 [facility] Comment on above: Order Comment: Speci men Type: BLOOD SPECIMEN Ordering Facility: [facility] Address: [address] [place] [address] Performed By: #### 5 7021-8 #### [facility] CLIA [id number] [address] [place] [address] 05296 Nucleated RBC/100 WBC (Bld) [Ratio] 0.0 /100 WBC Normal [facility] Comment on above: Order Comment: Speci men Type: BLOOD SPECIMEN Ordering Facility: [facility] Address: [address] [place] [address] Performed By: #### 5 7021-8 #### [facility] CLIA [id number] [address] [place] [address] 85797 Platelet mean volume (Bld) [Entitic vol] 8.5 fL Low 9.0-12.7 [facility] Comment on above: Order Comment: Speci men Type: BLOOD SPECIMEN Ordering Facility: [facility] Address: [address] [place] [address] Performed By: #### 5 7021-8 #### [facility] CLIA [id number] [address] [place] [address] 86542 Platelets (Bld) [#/Vol] 266 10*3/uL Normal 150-400 [facility] Comment on above: Order Comment: Speci men Type: BLOOD SPECIMEN Ordering Facility: [facility] Address: [address] [place], [place] [id number] Performed By: #### 5 7021-8 #### [facility] CLIA [id number] [address] [place] [address] 92661 RBC (Bld) [#/Vol] 3.83 10*6/uL Low 3.90-5.[address] [facility] Comment on above: Order Comment: Speci men Type: BLOOD SPECIMEN Ordering Facility: [facility] Address: [address] [place] [address] Performed By: #### 5 7021-8 #### [facility] CLIA [id number] [address] [place] [address] 22914 WBC (Bld) [#/Vol] 6.05 10*3/uL Normal 3.70-11.[address] [facility] Comment on above: Order Comment: Speci men Type: BLOOD SPECIMEN [facility] Facility: [facility] Address: [address] [place] [address] Performed By: #### 5 7021-8 #### [facility] CLIA [id number] [address] [place] [address] CEA SerPl-mCncon 02-10-2025 Carcinoembryonic Ag [Mass/Vol] 4.1 ng/mL High <=2.9 [facility] Comment on above: Order Comment: Speci men Type: BLOOD SPECIMEN Ordering Facility: [facility] Address: [address] [place] [address] Result Comment: Carc inoembryonic antigen test is used as an aid in monitoring response to treatment or recurrence in patients with established colorectal, breast, lung, prostatic, pancreatic, and ovarian carcinomas. Clinical correlation is required. The Carcinoembryonic antigen test was performed using the Tony Rapport Unicel DXI paramagnetic particle chemiluminescent immunoassay method. Results obtained with different assay methods or kits cannot be used interchangeably. Performed By: #### 5 7021-8 #### [facility] CLIA [id number] [address] [place], [place] [address] [facility] 02-10-2025 CNPN Telephone (HEMTSA) ----- EVAN GILL ([id number]) 1955 F Date Time Provider Department 02/10/25 TAPAN CORONA During your visit today, we recorded the following information about you: Jen Watson, KAYA 02/10/2025 1:[address] order for [facility] lab Thank You! KAYA Jackson Angela, RN 02/10/2025 1:58 PM Signed DIONTE- are you willing to sign Signatera for pt? She is here and would like this done prior to seeing DONOVAN. He is out. Please sign if agreeable. KAYA Drake Christina, LPN 02/11/2025 2:01 PM Signed Signatera order placed Allergies As of Date: 02/10/2025 (No Known Allergies) Date Reviewed: 10/31/2024 Reviewed by: Laisha Singer MD - Fully Assessed Reason for Visit: Orders [681] Primary Visit Diagnosis:Rectal cancer (HCC) [C20] Order(s):[facility] [SQMISC1] Order #: [id number] FUTURE Prescriptions as of 02/11/2025 - LEXAPRO 10 mg tablet - meloxicam (MOBIC) 15 mg tablet Take 15 mg by mouth once daily. - ondansetron orally disintegrating (ZOFRAN ODT) 8 mg disintegrating tablet Take 1 tablet by mouth every 8 hours as needed for nausea/vomiting. - omeprazole (PRILOSEC) 40 mg capsule Take 40 mg by mouth once daily. - oxybutynin ER (DITROPAN XL) 15 mg 24 hr Extended Rel Tab Take 15 mg by mouth. - aspirin, enteric coated (ASPIRIN, ENTERIC COATED) 81 mg EC tablet Take 81 mg by mouth once daily. 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] 08/09/2023 Diagnosed: 08/09/2023 Rectal adenocarcinoma (HCC) [C20] 08/25/2023 Ileostomy present (HCC) [Z93.2] 08/26/2023 Encounter for ostomy care education [Z71.89] 08/26/2023 08/29/2023 Small bowel obstruction (HCC) [K56.609] 08/31/2023 09/04/2023 Ileostomy bag changed (HCC) [Z43.2] 08/31/2023 Partial small bowel obstruction (HCC) [K56.600] 11/06/2023 Encounter Status:Closed by CAMILLA CORTÉS on 02/11/25 Normal [facility] CT ABD/PEL W IVCONon 04-[address] ABD/PEL W IVCON * * *Final Report* * * DATE OF EXAM: Feb 10 2025 1:51PM [facility] 0530 - CT ABD/PEL W IVCON [...] reported separately. Localizer images: No additional findings. IMPRESSION: 1. No recurrent or metastatic disease [...] any questions regarding this interpretation, please call [phone]. If you are unable to reach us at the number above, please feel free to contact [facility] eRadiology at [phone]. [id number] Normal [facility] CT CHEST W IVCONon CT CHEST W IVCON * * *Final Report* * * DATE OF EXAM: Feb 10 2025 1:51PM [facility] 0539 - CT CHEST W IVCON [...] upper abdomen. Localizer images: No additional findings. IMPRESSION: 1. No thoracic metastatic disease. 2. [...] any questions regarding this interpretation, please call [phone]. If you are unable to reach us at the number above, please feel free to contact [facility] eRadiology at [phone]. [id number] Normal [facility] metabolic 2000 panelOrdered By: Caleb Connolly on 02-10-2025 Albumin [Mass/Vol] 4 g/dL 3.9 - 4.9 g/dL [facility] ALP [Catalytic activity/Vol] 103 U/L 34 - 123 U/L [facility] ALT [Catalytic activity/Vol] 28 U/L 7 - 38 U/L [facility] Anion gap [Moles/Vol] 9 mmol/L 8 - 15 mmol/L [facility] AST [Catalytic activity/Vol] 16 U/L 13 - 35 U/L [facility] Bilirubin [Mass/Vol] 0.3 mg/dL 0.2 - 1 .3 mg/dL [facility] Calcium [Mass/Vol] 9 mg/dL 8.5 - 10. 2 mg/dL [facility] Chloride [Moles/Vol] 107 mmol/L 98 - 10 7 mmol/L [facility] CO2 [Moles/Vol] 25 mmol/L 22 - 30 mmol/L [facility] Creatinine [Mass/Vol] 0.67 mg/dL 0.58 - 0.96 mg/dL [facility] GFR/1.73 sq M.predicted among non-blacks MDRD (S/P/Bld) [Vol rate/Area] 94 mL/min/{1.73_m2} - PINF [facility] Comment on above: Estimated Glomerular [...] eGFR may not accurately reflect actual GFR. Glucose [Mass/Vol] 103 mg/dL High 74 - 99 mg/dL [facility] Comment on above: The [place] Diabete s Association (ADA) provides guidance for [...] Standards of Medical Care in Diabetes 2016, [place] Diabetes Association. Diabetes Care. 2016.39(Suppl 1). Interpretation and review of laboratory results Abnormal [facility] Potassium [Moles/Vol] 4.1 mmol/L 3.7 - 5.1 mmol/L [facility] Protein [Mass/Vol] 6.6 g/dL 6.3 - 8.0 g/dL [facility] Sodium [Moles/Vol] 141 mmol/L 136 - 144 mmol/L [facility] Urea nitrogen [Mass/Vol] 14 mg/dL 7 - 21 mg/dL [facility] metabolic 2000 panelon 02-10-2025 Albumin [Mass/Vol] 4.0 g/dL Normal 3.9-4.9 [facility] Comment on above: Order Comment: Mason simpson Type: BLOOD SPECIMEN Ordering Facility: [facility] Address: [address] [place] [address] Performed By: #### 5 7021-8 #### [facility] CLIA [id number] [address] [place] [address] ALP [Catalytic activity/Vol] 103 U/L Normal 34-123 [facility] Comment on above: Order Comment: Mason simpson Type: BLOOD SPECIMEN Ordering Facility: [facility] Address: [address] [place] [address] Performed By: #### 5 7021-8 #### [facility] CLIA [id number] [address] [place] [address] ALT [Catalytic activity/Vol] 28 U/L Normal 7-38 [facility] Comment on above: Order Comment: Speci men Type: BLOOD SPECIMEN Ordering Facility: [facility] Address: [address] [place] [address] Performed By: #### 5 7021-8 #### [facility] CLIA [id number] [address] [place] [address] Anion gap [Moles/Vol] 9 mmol/L Normal 8-15 [facility] Comment on above: Order Comment: Speci men Type: BLOOD SPECIMEN Ordering Facility: [facility] Address: [address] [place] [address] Performed By: #### 5 7021-8 #### [facility] CLIA [id number] [address] [place] [address] AST [Catalytic activity/Vol] 16 U/L Normal 13-35 [facility] Comment on above: Order Comment: Speci men Type: BLOOD SPECIMEN Ordering Facility: [facility] Address: [address] [place] [address] Performed By: #### 5 7021-8 #### [facility] CLIA [id number] [address] [place] [address] Bilirubin [Mass/Vol] 0.3 mg/dL Normal 0.2-1.3 [facility] Comment on above: Order Comment: Speci men Type: BLOOD SPECIMEN Ordering Facility: [facility] Address: [address] [place] [address] Performed By: #### 5 7021-8 #### [facility] CLIA [id number] [address] [place] [address] Calcium [Mass/Vol] 9.0 mg/dL Normal 8.5-10.2 [facility] Comment on above: Order Comment: Speci men Type: BLOOD SPECIMEN Ordering Facility: [facility] Address: [address] [place] [address] Performed By: #### 5 7021-8 #### [facility] CLIA [id number] [address] [place] [address] Chloride [Moles/Vol] 107 mmol/L Normal 98-107 [facility] Comment on above: Order Comment: Speci men Type: BLOOD SPECIMEN Ordering Facility: [facility] Address: [address] [place] [address] Performed By: #### 5 7021-8 #### [facility] CLIA [id number] [address] [place] [address] CO2 [Moles/Vol] 25 mmol/L Normal 22-30 [facility] Comment on above: Order Comment: Speci men Type: BLOOD SPECIMEN Ordering Facility: [facility] Address: [address] [place] [address] Performed By: #### 5 7021-8 #### [facility] CLIA [id number] [address] [place] [address] Creatinine [Mass/Vol] 0.67 mg/dL Normal 0.58-0.96 [facility] Comment on above: Order Comment: Speci men Type: BLOOD SPECIMEN [facility]ing Facility: [facility] Address: [address] [place] [address] Performed By: #### 5 7021-8 #### [facility] CLIA [id number] [address] [place] [address] eGFRcr SerPlBld CKD-EPI 2020 94 mL/min/1.73m??? Normal >=60 [facility] Comment on above: Order Comment: Speci men Type: BLOOD SPECIMEN Ordering Facility: [facility] Address: [address] [place] [address] Result Comment: Farhana mated Glomerular Filtration Rate [...] GFR. Performed By: #### 5 7021-8 #### [facility] CLIA [id number] [address] [place] [address] Glucose [Mass/Vol] 103 mg/dL High 74-99 [facility] Comment on above: Order Comment: Speci tatiana Type: BLOOD SPECIMEN Ordering Facility: [facility] Address: [address] [place] [address] Result Comment: The [place] Diabetes Association (ADA) provides guidance for cutoff [...] Standards of Medical Care in Diabetes 2016, [place] Diabetes Association. Diabetes Care. 2016.39(Suppl 1). Performed By: #### 5 7021-8 #### [facility] CLIA [id number] [address] [place] [address] Potassium [Moles/Vol] 4.1 mmol/L Normal 3.7-5.1 [facility] Comment on above: Order Comment: Moyi men Type: BLOOD SPECIMEN Ordering Facility: [facility] Address: [address] [place] [address] Performed By: #### 5 7021-8 #### [facility] CLIA [id number] [address] [place] [address] Protein [Mass/Vol] 6.6 g/dL Normal 6.3-8.0 [facility] Comment on above: Order Comment: Mason simpson Type: BLOOD SPECIMEN Ordering Facility: [facility] Address: [address] [place] [address] Performed By: #### 5 7021-8 #### [facility] CLIA [id number] [address] [place] [address] Sodium [Moles/Vol] 141 mmol/L Normal 136-144 [facility] Comment on above: Order Comment: Speci men Type: BLOOD SPECIMEN [facility]ing Facility: [facility] Address: [address] [place] [address] Performed By: #### 5 7021-8 #### [facility] CLIA [id number] [address] [place] [address] Urea nitrogen [Mass/Vol] 14 mg/dL Normal 7-21 [facility] Comment on above: Order Comment: Speci men Type: BLOOD SPECIMEN Ordering Facility: [facility] Address: [address] [place], [place] [address] Performed By: #### 5 7021-8 #### [facility] CLIA [id number] [address] [place] [address] [id number] 01-29-2025 [id number] HNO ID: [id number] Author: CHAPINCITO ANTHONY PT Service: ? Author Type: Physical Therapist Type: [id number] Filed: 01/29/2025 12:32 Note Text: [facility] Physical Therapy Plan of Care Certification Patient Name: Evan Gill : 1955 CC #: [id number] Date: 01/28/2025 To: Laisha Singer MD From Therapist: Chapincito Anthony PT RE: Patient Certification/ Recertification Your review, approval and electronic signature are required in order to comply with Payor: MEDICARE / Plan: MEDICARE A AND B / Product Type: Medicare / regulations. 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 The patient presents with impairments in coordination, flexibility, independence in exercise, strength, symptom management, tissue tenderness, and deep breathing and PFM dynamics . PROMIS? (Patient-Reported Outcomes Measurement Information System) scores were [...] max holds; able to lengthen at will 90 % of the time -BM 1-2 per day [...] Planned: 6 Planned Treatment Interventions: Therapeutic exercise (87321), Neuromuscular re-education (22903), Manual therapy (80110), Self-penitentiary management (72952), Patient/Family/Caregiver Education PLAN FOR NEXT VISIT: progress [...] I have reviewed the treatment plan for Evan Demetrius Gill, [facility]# [id number] for the period of 01/28/25 -- 04/23/25, established on 01/28/2025. Signature certifies the need for therapy services. 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 - ondansetron orally disintegrating (ZOFRAN ODT) 8 mg disintegrating tablet Take 1 tablet by mouth every 8 hours as needed for nausea/vomiting. - omeprazole (PRILOSEC) 40 mg capsule Take 40 mg by mouth once daily. - oxybutynin ER (DITROPAN XL) 15 mg 24 hr Extended Rel Tab Take 15 mg by mouth. - aspirin, enteric coated (ASPIRIN, ENTERIC COATED) 81 mg EC tablet Take 81 mg by mouth once daily. Normal [facility] 01-03-2025 CNPN Telephone ([facility]) ----- EVAN GILL ([id number]) 1955 F Date Time Provider Department 01/03/25 LAISHA SINGER [facility] During your visit today, we recorded the following information about you: Princess Mckeon RN 01/03/2025 9:51 AM Signed Call placed to patient. 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 She is starting Pelvic Floor PT in January (They had cancelled appts several times with her). She is having clustering of stools, mostly in evening. She feels she is taking too much imodium but still having loose stools and is concerned if this is another problem. She denies liquid stools, cramping, full incontinence, fever, abdominal pain or bloating. She is getting adequate fluids in per day. Stool is soft brown but clustering and needs to stay close to bathroom. She feels this is impacting her life and unable to leave the home. Discussed maximum dose of imodium. She is taking 6- 8 tablets of imodium per day but not taking before meals, only after the meal or event. Discussed a one trial day of no imodium and mild bowel cleanse to ensure no diarrhea overflow is part of her problem. if she is concerned she has taken too much imodium. Reviewed LAR handout, timing of liquids in the day, adding OTC fiber. Discussed when to take Imodium 30 before meals. Reviewed LAR syndrome. She is appreciative of the discussion and has follow up in February with Dr Singer. Advised to contact office anytime if in need of further discussion. Allergies As of Date: 01/03/2025 (No Known Allergies) Date Reviewed: 10/31/2024 Reviewed by: Laisha Singer MD - Fully Assessed Reason for Visit: Returning Patient's Call [408] Prescriptions as of 01/03/2025 - LEXAPRO 10 mg tablet - meloxicam (MOBIC) 15 mg tablet Take 15 mg by mouth once daily. - ondansetron orally disintegrating (ZOFRAN ODT) 8 mg disintegrating tablet Take 1 tablet by mouth every 8 hours as needed for nausea/vomiting. - omeprazole (PRILOSEC) 40 mg capsule Take 40 mg by mouth once daily. - oxybutynin ER (DITROPAN XL) 15 mg 24 hr Extended Rel Tab Take 15 mg by mouth. - aspirin, enteric coated (ASPIRIN, ENTERIC COATED) 81 mg EC tablet Take 81 mg by mouth once daily. Problem List As Of Date 01/03/2025 Noted Resolved OSTEOARTHROS NOS-ANKLE [M19.079] 12/20/2005 Personal History of Malignant Melanoma of Skin *04/28/2009 Rectal cancer (HCC) [C20] 06/14/2023 Iron deficiency anemia, unspecified [D50.9] 07/06/2023 Atrial fibrillation (HCC) [I48.91] 08/09/2023 Diagnosed: 08/09/2023 Essential hypertension [I10] 04/25/2017 Diagnosed: 08/09/2023 GERD (gastroesophageal reflux disease) [K21.9] 08/09/2023 Diagnosed: 08/09/2023 Hemorrhoids [K64.9] 08/09/2023 Diagnosed: 08/09/2023 Hyperlipidemia [E78.5] 08/09/2023 Diagnosed: 08/09/2023 Mixed anxiety depressive disorder [F41.8] 08/09/2023 Diagnosed: 08/09/2023 Rectal adenocarcinoma (HCC) [C20] 08/25/2023 Ileostomy present (HCC) [Z93.2] 08/26/2023 Encounter for ostomy care education [Z71.89] 08/26/2023 08/29/2023 Small bowel obstruction (HCC) [K56.609] 08/31/2023 09/04/2023 Ileostomy bag changed (HCC) [Z43.2] 08/31/2023 Partial small bowel obstruction (HCC) [K56.600] 11/06/2023 Encounter Status:Closed by PRINCESS MCKEON on 01/03/25 Normal [facility] ANORECTAL MANOMET [facility] 11-05-2024 I have reviewed, verified, and confirmed the results of anorectal manometry, rectal sensation, tone and compliance testing and EMG testing. I agree with the impression as written above. Rodolfo Hernandez MD Pelvic Floor Colon & Rectal Surgery [employer] Reason for testing: LARS Ileoanal pouch: No [...] was present. This is a normal reflex. EMG Recruitment: EMG recruitment was performed. The patient shows a normal increase in activity with squeeze, and a no change in activity with valsalva. This indicates abnormal pelvic floor movement, which can be indicative of poor pelvic floor coordination secondary to pelvic floor non-relaxation / dyssynergia. Ale Marie APRN.[employer] [facility] [place] ANORECTAL MANOMET RYOrdered By: Rodolfo Hernandez on 11-05-2024 [facility] Work Phone: Radiology Study observation (narrative) [facility] Work Phone: CNOVon 10-31-2024 CNOV Office Visit (JARRELLSAV ) ----- JAIROESTUARDOEVAN ([id number]) 1955 F Date Time Provider Department 10/31/24 9:00 AM LAISHA SINGER During your visit today, we recorded the following information about you: Pulse Blood pressure Weight Height 74/minute 138/68 74.7 kg 1.626 m Laisha Singer MD 10/31/2024 2:52 PM Signed COLORECTAL SURGERY October 31, 2024 Evan Romo Jairo Chief Complaint: low anterior resection syndrome History of Present Illness: Evan Gill is a 69 year old female who 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 She has a history of rectal cancer s/p STACY, LAR to pelvic floor with DLI 08/2023 and reversal on 11/08/23. She was last seen in the office on 01/09/24. Prior A/P from 01/09/24: Evan Gill is a 68 year old [...] [place] - Colonoscopy 08/2024 (Dr. Greene) - 07/11 cap of miralax daily - Follow-up in 1 year or sooner if needed She now re-presents to discuss her ongoing symptoms. Current concerns: She states that she continues to have episodes of urgency and incontinence about once a day to every other day. When these episodes happen, they last about an hour, where she goes to the bathroom, believes she is done and shortly after has additional urge to go. One the episode finishes, she no longer has any need to have a BM the rest of the day. She states that this happens at random times, and is significantly impacting her life and her confidence to leave the house. She was previously on miralax for constipation, but now has the opposite problem of soft to liquid stools. She is on Imodium and metamucil. She also notes about 20-25 lb weight gain since she has been off of semaglutide. Cannot control flatus? Yes, at least once per week Accidental leakage of liquid stool? Yes, at least once per week How often do you move your bowels? 4-7 times daily Do you every have to move your bowels within 1 hour of another bowel movement? Yes, at least once per week Do you ever have such a strong urge to move your bowels that you have to fowler to the toilet? Yes, at least once per week Colonoscopy on 09/18/[address] Tomi Greene - ascending colon: 2.5 cm polyp removed. 3 clips were placed at the polypectomy site to prevent bleeding then the area on the opposite wall of the polypectomy site was tattooed. View External Procedures - Colonoscopy [ID [id number]] Pathology: Ascending colon polyp: tubular adenoma Scan on 10/16/2024 1:47 PM by Provider, Raymond, [place]: Pathology PAST MEDICAL HISTORY Diagnosis Date Constipation Diverticulosis [...] that Drug use: Never Physical Exam: BP 138/68 Pulse 74 Ht 162.6 cm (5' 4 ) Wt 74.7 kg (164 lb 10.9 oz) SpO2 99% BMI 28.27 kg/m? General Appearance: Well appearing, alert, in no acute distress, well-hydrated, well nourished. Abdomen: soft ND NT Assessment Assessment and Plan: Evan Gill is a 69 year old female w/ T3cN+ rectal ca s/p STACY, LAR, DLI 08/2023 and subsequent ileostomy closure now w/ LARS refractory to medication. Manometry Pelvic floor PT (more content not included)... Normal [facility] X-ray reportOrdered By: Bijan Zamorano on 10-18-2024 Study report [facility] [address] [place] [address] XRay Report Signed Patient: Evan Gill MR#: [id number] : 1955 Acct:[id number] Age/Sex: 69 / F ADM Date: 5 [place] [facility]: Type: [facility] Attending Dr: Amanda Chester MD Copies to: Amanda Chester MD~ Ordering Provider: Amanda Chester MD Date of Service: 10/18/24 XR/XR hand RT min 3V*: M19.049 - Primary osteoarthritis, unspecified hand RIGHT HAND - 4 views REASON FOR EXAM: Follow-up right third DIP joint fusion. COMPARISON: Right hand 09/27/2024 FINDINGS: DIP fusion right third digit without evidence of hardware complication. There appears be partial bony fusion along the DIP joint. No acute fracture is seen. Scattered degenerative changes particularly involving the DIP joints and IP joint of the thumb. No bony erosions. Moderate degenerative changes involving the CMC joint of the thumb. XR/XR hand RT min 3V* IMPRESSION: NO HARDWARE COMPLICATION. Impression dictated by: Cayden Zamorano Jr., D.OLupis10/18/2024 12:05 PM Dictation Location: [place] [address] Transcribed By: [facility] 10/18/24 1205 Dictated By: Cayden Zamorano Jr, DO 10/18/24 1204 Signed By: 10/18/[address] [facility] XR hand RT min 3V*on 025 XR hand RT min 3V* [facility] [address] [place] [address] XRay Report Signed Patient: Evan Gill MR#: [id number] 89 : 1955 Acct:[id number] Age/Sex: 69 / F ADM Date: 10/18/24 [place] [facility]: Type: [facility] CLI Attending Dr: Amanda Chester MD Copies to: Amanda Chester MD Ordering Provider: Amanda Chester MD Date of Service: 10/18/24 XR/XR hand RT min 3V*: M19.049 - Primary osteoarthritis, unspecified hand RIGHT HAND - 4 views REASON FOR EXAM: Follow-up right third DIP joint fusion. COMPARISON: Right hand 09/27/2024 FINDINGS: DIP fusion right third digit without evidence of hardware complication. There appears be partial bony fusion along the DIP joint. No acute fracture is seen. Scattered degenerative changes particularly involving the DIP joints and IP joint of the thumb. No bony erosions. Moderate degenerative changes involving the CMC joint of the thumb. XR/XR hand RT min 3V* IMPRESSION: NO HARDWARE COMPLICATION. Impression dictated by: Cayden Zamorano Jr., D.OLupis10/18/2024 12:05 PM Dictation Location: RADIO-PC-18 Transcribed By: [facility] 10/18/24 120 Dictated By: Cayden Zamorano Jr, DO 10/18/24 1204 Signed By: 10/18/24 1205 Normal [facility] CNOVon 10-09-2024 CNOV Office Visit (RADTSA ) ----- EVAN GILL ([id number]) 1955 F Date Time Provider Department 10/09/24 9:00 AM Del HUDSON During your visit today, we recorded the following information about you: Temperature Pulse Respiration Blood pressure 97.6 degrees 79/minute 16/minute 164/92 Weight 73.5 kg Del Hudson MD 10/18/2024 10:06 AM Signed Radiation Oncology - Follow Up [...] bleeding. No pain. No bladder related issues. She had recent colonoscopy on 09/18/2024 remarkable findings. 08/25/2023 robotic laparoscopic colectomy. Palpable finding mid [...] pT Category pT0 pN Category pN0 . LABORATORY: Latest Reference Range AND Units 02/06/24 10:51 05/08/24 13:11 08/19/24 12:54 CEA <=2.9 ng/mL 2.9 2.8 3.5 (H) (H): Data is abnormally high ALLERGIES No Known Allergies MEDICATIONS: LEXAPRO 10 mg tablet meloxicam (MOBIC) 15 mg tablet Take 15 mg by mouth once daily. ondansetron orally disintegrating (ZOFRAN ODT) 8 mg disintegrating tablet Take 1 tablet by mouth every 8 hours as needed for nausea/vomiting. omeprazole (PRILOSEC) (more content not included)... Normal [facility] X-ray reportOrdered By: Chandu Garcia on 09-27-2024 Study report [facility] [address] [place] [place] [address] XRay Report Signed Patient: Evan Gill MR#: [id number] : 1955 Acct:[id number] Age/Sex: 69 / F ADM Date: 5 [place] [facility] [place]: Type: [facility] Attending Dr: Amanda Chester MD Copies to: Amanda Chester MD~ Ordering Provider: Amanda Chester MD Date of Service: 09/27/24 XR/XR hand RT min 3V*: L08.9 - Local infection of theskin and subcutaneous tiss... RIGHT HAND - 4 views COMPARISON: 08/26/2024 REASON FOR EXAM: Status post fusion of the third digit FINDINGS: Interval fusion distal interphalangeal joint of the third digit. Hardware is intact. Mild to moderate degenerative changes involving the DIP and PIP joints and the carpal joints. No fractures. There are no dislocation.. XR/XR hand RT min 3V* IMPRESSION: FUSION THIRD DIGITS DIP JOINT. HARDWARE IS INTACT. SATISFACTORY ALIGNMENT. Impression dictated by: Davie Garcia M.D.09/27/2024 4:53 PM Dictation Location: [facility]-- Transcribed By: [facility] 09/27/241652 Dictated By: Davie Garcia MD 09/27/241650 Signed By: 09/27/241652 [facility] Work Phone: XR hand RT min 3V*on 025 XR hand RT min 3V* [facility] [address] [place] [place] [address] XRay Report Signed Patient: Evan Gill MR#: [id number] 89 : 1955 Acct:[id number] Age/Sex: 69 / F ADM Date: 09/27/24 [place] [facility] [place]: Type: [facility] Attending Dr: Amanda Chester MD Copies to: Amanda Chester MD Ordering Provider: Amanda Chester MD Date of Service: 09/27/24 XR/XR hand RT min 3V*: L08.9 - Local infection of the skin and subcutaneous tiss... RIGHT HAND - 4 views COMPARISON: 08/26/2024 REASON FOR EXAM: Status post fusion of the third digit FINDINGS: Interval fusion distal interphalangeal joint of the third digit. Hardware is intact. Mild to moderate degenerative changes involving the DIP and PIP joints and the carpal joints. No fractures. There are no dislocation.. XR/XR hand RT min 3V* IMPRESSION: FUSION THIRD DIGITS DIP JOINT. HARDWARE IS INTACT. SATISFACTORY ALIGNMENT. Impression dictated by: Davie Garcia M.D.09/27/2024 4:53 PM Dictation Location: RADIO-PC-29 Transcribed By: [facility] 09/27/241652 Dictated By: Davie Garcia MD 09/27/241650 Signed By: 09/27/241652 Normal [facility] Jake 09-18-2024 L ----- Specimen: [id number] Received: 09/18/24 Status: JESSICA Pat Num: [id number] Spec Type: Surgical Subm Dr: Tomi Greene MD Tissues: A Colon Biopsy (ASCND COL) Procedures: Ramakrishna BANKS/Quentin L4 Age/ Patient Sex Location Account Attending Physician Evan Gill 69/F [id number] Tomi Greene MD SPEC NUM: [id number] RECD: 09/18/24 STATUS: JESSICA PAT NUM: [id number] PERLA: 09/18/24- SUBM DR: Tomi Greene MD ENTERED: 09/18/[address] [facility] [address]: SPEC TYPE: Surgical DEPT: S ENTERED BY: [id number] RECV BY: [id number] ORDERED: HE/2, Gross/Micro L4 ORDERED: HE/2, Gross/Micro L4 Pathological Diagnosis Colon, ascending, polypectomy: - Tubular adenoma. Clinical Information History of rectal cancer Gross Description Received in formalin labeled with the patients name, date of , and polyp ascending is a wong-yousif, focally erythematous, friable, 0.7 cm in greatest dimension polypoid structure with adherent vegetative material. The polyp is inked black, trisected, and entirely submitted in a single cassette with the vegetative material routine. (1, ns, [id number] A) Microscopic Description Microscopic examination is performed. CPT Codes 18889 Specimen: [id number] Received: 09/18/24 Status: JESSICA Reganradha Num: [id number] Spec Type: Surgical Subm Dr: Tomi Greene MD Tissues: A Colon Biopsy (ASCND COL) Procedures: HE/2, Gross/Micro L4 Patient: Evan Gill [id number] (Continued) Signed (signature on file) Jde Vang MD 09/19/24 0948 [place] [facility] CNOVSPon 09-03-2024 OVS Visit (SP) Office (HEMAVN) ----- EVAN GILL ([id number]) 1955 F Date Time Provider Department 09/03/24 1:45 PM TAPAN CORONA During your visit today, we recorded the following information about you: Temperature Pulse Respiration Blood pressure 97.2 degrees 64/minute 18/minute 121/74 Weight Height 72.5 kg 1.626 m Tapan Corona MD 09/03/2024 2:15 PM Signed PATIENT NAME: Evan Gill CLINIC NO.: [id number] ATTENDING PHYSICIAN: Tapan Corona MD DATE OF SERVICE: September 03, 2024 Some of the elements of this note have been copied from my previous progress note dated 05/08/2024. All the information has been reviewed carefully. Dear Dr. 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 Signatera 10/2023, 01/2024, 08/2024- Negative. HPI: Evan Gill is a 69 year old year old female here for follow up. She is doing well overall and denies any fevers and or chills. Denies any abdominal pain. Has had fecal frequency after surgery., PAST MEDICAL HISTORY Diagnosis Date Constipation Diverticulosis [...] : Deferred LABS: Glucose (mg/dL) Date Value 08/19/2024 108 Potassium (mmol/L) Date Value 08/19/2024 4.2 Sodium (mmol/L) Date Value 08/19/2024 142 Chloride (mmol/L) Date Value 08/19/2024 106 CO2 (mmol/L) Date Value 08/19/2024 28 Creatinine (mg/dL) Date Value 08/19/2024 0.74 BUN (mg/dL) Date Value 08/19/2024 23 Anion Gap (mmol/L) Date Value 08/19/2024 8 Calcium, Total (mg/dL) Date Value 08/19/2024 9.6 Protein, Total (g/dL) Date Value 08/19/2024 6.3 Albumin (g/dL) Date Value 08/19/2024 4.1 Bilirubin, Total (mg/dL) Date Value 08/19/2024 0.3 Alkaline Phosphatase (U/L) Date Value 08/19/2024 80 AST (U/L) Date Value 08/19/2024 16 ALT (U/L) Date Value 08/19/2024 15 WBC Date Value Ref Range Status 08/19/2024 (more content not included)... Normal [facility] CNPNon 08-27-2024 CNPN Telephone (HEMAVN) ----- EVAN GILL ([id number]) 1955 F Date Time Provider Department 08/27/24 GAGANDEEP WARD During your visit today, we recorded the following information about you: Gagandeep Ward RN 08/27/2024 10:44 AM Signed Left message for patient regarding lab results. Follow up OV Dr Corona 09/03/24 as scheduled. Sent to scanning into Lenin Almanza RN 08/27/2024 11:13 AM Signed Patient calling Requesting to speak to Gagandeep please Did not get the message/states message did not record Call CELL Leave Detailed messages Allergies As of Date: 08/27/2024 (No Known Allergies) Date Reviewed: 05/08/2024 Reviewed by: Tapan Corona MD - Fully Assessed Reason for Visit: Results, Lab [1201] Prescriptions as of 08/27/2024 - ondansetron orally disintegrating (ZOFRAN ODT) 8 [...] once daily. Problem List As Of Date 08/27/2024 Noted Resolved OSTEOARTHROS NOS-ANKLE [M19.079] 12/20/2005 Personal History of Malignant Melanoma of Skin *04/28/2009 Rectal cancer (HCC) [C20] 06/14/2023 Iron deficiency anemia, unspecified [D50.9] 07/06/2023 Atrial fibrillation (HCC) [I48.91] 08/09/2023 Diagnosed: 08/09/2023 Essential hypertension [I10] 04/25/2017 Diagnosed: 08/09/2023 GERD (gastroesophageal reflux disease) [K21.9] 08/09/2023 Diagnosed: 08/09/2023 Hemorrhoids [K64.9] 08/09/2023 Diagnosed: 08/09/2023 Hyperlipidemia [E78.5] 08/09/2023 Diagnosed: 08/09/2023 Mixed anxiety depressive disorder [F41.8] 08/09/2023 Diagnosed: 08/09/2023 Rectal adenocarcinoma (HCC) [C20] 08/25/2023 Ileostomy present ([facility]) [Z93.2] 08/26/2023 Encounter for ostomy care education [Z71.89] 08/26/2023 08/29/2023 Small bowel obstruction ([facility]) [K56.609] 08/31/2023 09/04/2023 Ileostomy bag changed ([facility]) [Z43.2] 08/31/2023 Partial small bowel obstruction ([facility]) [K56.600] 11/06/2023 Encounter Status:Closed by GAGANDEEP WARD on 08/27/24 [facility] Aerobic Cultureon 08-26-2024 Aerobic Culture Comment Deep Wound C x of R Long Finger 1 ORGANISM: Methicillin Resis Staph Aureus (O:MRSA) Quantity of Growth Light Growth Comment Deep Wound Cx of R Long Finger 1 No Anaerobes Isolated 3 Days Comment Deep Wound Cx of R Long Finger 1 Gram Stain Result 1+ Epithelial Cells 1+ White Blood Cells No Bacteria Seen Aerobic JOANNE Charge (PCMIC38) SUSCEPTIBILITY ORGANISM: O:MRSA ANTIBIOTIC INTERPRETATION JOANNE Azithromycin R >4 Ceftaroline S <0.5 Clindamycin S 0.5 Daptomycin S <0.5 Linezolid S 2 Oxacillin R >2 Penicillin R >2 Tetracycline [...] RESISTANT TO ALL B-LACTAM DRUGS. PERFORMED BY: [place] [address] PATHOLOGIST HAND MOUNTER NICOLE SOW M.D. Normal [facility] Comment on above: Performed By: #### C UBLD #### [address] Aerobic Culture Comment Deep Wound C x of R Long Finger 2 ORGANISM: Methicillin Resis Staph Aureus (O:MRSA) Quantity of Growth Light Growth Comment Deep Wound Cx of R Long Finger 2 No Anaerobes Isolated 3 Days Comment Deep Wound Cx of R Long Finger 2 Gram Stain Result 1+ White Blood Cells Rare Gram Positive Cocci Rare Epithelial Cells Aerobic JOANNE Charge (PCMIC38) SUSCEPTIBILITY ORGANISM: O:MRSA ANTIBIOTIC INTERPRETATION JOANNE Azithromycin R >4 Ceftaroline S <0.5 Clindamycin S <0.25 Daptomycin S <0.5 Linezolid S 2 Oxacillin R >2 Penicillin R >2 Tetracycline [...] RESISTANT TO ALL B-LACTAM DRUGS. PERFORMED BY: [place] [address] PATHOLOGIST HAND MOUNTER NICOLE SOW M.D. Normal [facility] Comment on above: Performed By: #### C UBLD #### [address] Anaerobic cultureOrdered By: Amanda Chester on 08-26-2024 Bacteria identified Anaer cx Nom (Unsp spec) Anaerobic culture [facility] Bacteria identified Anaer cx Nom (Unsp spec) Anaerobic culture [facility] Bacteria identified Aer cx N om (Unsp spec)Ordered By: Amanda Chester on 08-26-[address] [facility] Aerobic Culture Abnormal [facility] Gram stain microscopyOrdered By: Amanda Chester on 08-26-2024 Microscopic observation Gram stain Nom (Unsp spec) Gram stain microscopy [facility] Microscopic observation Gram stain Nom (Unsp spec) Gram stain microscopy [facility] XR finger RT 3rd digiton XR finger RT 3rd digit [facility] Main [place] [address] [place] [address] XRay Report Signed Patient: Evan Gill MR#: [id number] 89 : 1955 Acct:[id number] Age/Sex: 69 / F ADM Date: 08/26/24 Loc: [place] Room: Type: [facility] Attending Dr: Amanda Chester MD Copies to: Amanda Chester MD Ordering Provider: Amanda Chester MD Date of Service: 08/26/24 XR/XR finger RT 3rd digit: SX Fluoroscopic assessment for right third finger fusion HISTORY: Right third DIP fusion 7 image was obtained. Cumulative Air Kerma in mGy: 0.13 mGy Adequate fusion hardware. XR/XR finger RT 3rd digit IMPRESSION: Adequate perfusion. Impression dictated by: Cameron Lares M.D.08/26/2024 3:47 PM Dictation Location: [place] [address] Transcribed By: [facility] 08/26/24 1547 Dictated By: Cameron Lares DO 08/26/24 1546 Signed By: 08/26/24 1547 Normal [facility] ECG 12 lead ECGon 08-20-2024 ECG 12 lead ECG [facility] [place] [address] Electrocardiograph Report Signed Patient: Evan Gill MR#: [id number] 89 : 1955 Acct:[id number] Age/Sex: 68 / F ADM Date: 08/20/24 Loc: Room: Type: [facility] Attending Dr: Amanda Chester MD Ordering Provider: Amanda Chester MD Date of Service: 08/20/2406/03/814 ECG/ECG 12 lead ECG: Pre op Copies to: Test Reason : Blood Pressure : */* mmHG Vent. Rate : 58 BPM Atrial Rate : 58 BPM P-R Int : 192 ms QRS Dur : 92 ms QT Int : 444 ms P-R-T Axes : 45 27 57 degrees QTcB Int : 435 ms Sinus bradycardia Otherwise normal ECG When compared with ECG of 25-Oct-2023 20:31, premature atrial complexes are no longer present Vent. rate has decreased by 44 bpm Nonspecific T wave abnormality, improved in Lateral leads Confirmed by RAYSHAWN VELASQUEZ [facility], [place] ([id number]) on 08/20/2024 4:35:52 PM Referred By: Electronically Signed By: TROY TABARES MD [facility] Transcribed By: MUS Signed By Troy Tabares MD, FACC 08/20/24 1635 Normal [facility] Basophils Auto (Bld) [#/Vol] on 08-19-2024 Basophils (Bld) [#/Vol] Automated basophil count <0.11 [facility] Basophils/100 WBC Auto (Bld) on 08-19-2024 Basophils/100 WBC (Bld) Automated basophil % [facility] Blood manual differential co mment interpretation narrativeon 08-19-2024 Manual differential comment Ankush (Bld) [Interp] Blood manual differential comment interpretation narrative [facility] CBC W Auto Differential pane l (Bld)on 08-19-2024 Basophils (Bld) [#/Vol] 0.07 10*3/uL Normal <0.11 [facility] Comment on above: Order Comment: Speci men Type: BLOOD SPECIMEN Ordering Facility: [facility] Address: [address] [place] [address] Performed By: #### 5 7021-8 #### [facility] CLIA [id number] [address] [place] [address] Basophils/100 WBC (Bld) 1.1 % Normal [facility] Comment on above: Order Comment: Speci men Type: BLOOD SPECIMEN Ordering Facility: [facility] Address: [address] [place] [address] Performed By: #### 5 7021-8 #### [facility] CLIA [id number] [address] [place] [address] Differential cell count method Nom (Bld) Auto Normal [facility] Comment on above: Order Comment: Speci men Type: BLOOD SPECIMEN Ordering Facility: [facility] Address: [address] [place] [address] Performed By: #### 5 7021-8 #### [facility] CLIA [id number] [address] [place] [address] Eosinophils (Bld) [#/Vol] 0.25 10*3/uL Normal <0.46 [facility] Comment on above: Order Comment: Speci men Type: BLOOD SPECIMEN Ordering Facility: [facility] Address: [address] [place] [address] Performed By: #### 5 7021-8 #### [facility] CLIA [id number] [address] [place] [address] Eosinophils/100 WBC (Bld) 3.8 % Normal [facility] Comment on above: Order Comment: Speci men Type: BLOOD SPECIMEN Ordering Facility: [facility] Address: [address] [place] [address] Performed By: #### 5 7021-8 #### [facility] CLIA [id number] [address] [place] [address] Erythrocyte distribution width (RBC) [Ratio] 14.6 % Normal 11.5-15.0 [facility] Comment on above: Order Comment: Speci men Type: BLOOD SPECIMEN Ordering Facility: [facility] Address: [address] [place] [address] Performed By: #### 5 7021-8 #### [facility] CLIA [id number] [address] [place] [address] Hematocrit (Bld) [Volume fraction] 35.4 % Low 36.0-46.0 [facility] Comment on above: Order Comment: Speci men Type: BLOOD SPECIMEN Ordering Facility: [facility] Address: [address] [place], [place] [address] Performed By: #### 5 7021-8 #### [facility] CLIA [id number] [address] [place] [address] Hemoglobin (Bld) [Mass/Vol] 11.7 g/dL Normal 11.5-15.5 [facility] Comment on above: Order Comment: Speci men Type: BLOOD SPECIMEN Ordering Facility: [facility] Address: [address] [place] [address] Performed By: #### 5 7021-8 #### [facility] CLIA [id number] [address] [place] [address] Immature granulocytes (Bld) [#/Vol] 10*3/uL Normal <0.10 [facility] Comment on above: Order Comment: Speci men Type: BLOOD SPECIMEN Ordering Facility: [facility] Address: [address] [place] [address] Performed By: #### 5 7021-8 #### [facility] CLIA [id number] [address] [place] [address] 25392 Immature granulocytes/100 WBC (Bld) 0.3 % Normal [facility] Comment on above: Order Comment: Speci men Type: BLOOD SPECIMEN Ordering Facility: [facility] Address: [address] [place] [address] Performed By: #### 5 7021-8 #### [facility] CLIA [id number] [address] [place] [address] Lymphocytes (Bld) [#/Vol] 1.71 10*3/uL Normal 1.00-4.00 [facility] Comment on above: Order Comment: Speci men Type: BLOOD SPECIMEN Ordering Facility: [facility] Address: [address] [place] [address] Performed By: #### 5 7021-8 #### [facility] CLIA [id number] [address] [place] [address] Lymphocytes/100 WBC (Bld) 26.1 % Normal [facility] Comment on above: Order Comment: Speci men Type: BLOOD SPECIMEN Ordering Facility: [facility] Address: [address] [place] [address] Performed By: #### 5 7021-8 #### [facility] CLIA [id number] [address] [place] [address] 23800 MCH (RBC) [Entitic mass] 29.8 pg Normal 26.0-34.0 [facility] Comment on above: Order Comment: Speci men Type: BLOOD SPECIMEN Ordering Facility: [facility] Address: [address] [place] [address] Performed By: #### 5 7021-8 #### [facility] CLIA [id number] [address] [place] [address]19 MCHC (RBC) [Mass/Vol] 33.1 g/dL Normal 30.5-36.0 [facility] Comment on above: Order Comment: Speci men Type: BLOOD SPECIMEN Ordering Facility: [facility] Address: [address] [place] [address] Performed By: #### 5 7021-8 #### [facility] CLIA [id number] [address] [place] [address] 27083 MCV (RBC) [Entitic vol] 90.3 fL Normal 80.0-100.0 [facility] Comment on above: Order Comment: Speci men Type: BLOOD SPECIMEN Ordering Facility: [facility] Address: [address] [place] [address] Performed By: #### 5 7021-8 #### [facility] CLIA [id number] [address] [place] [address] 74718 Monocytes (Bld) [#/Vol] 0.51 10*3/uL Normal <0.87 [facility] Comment on above: Order Comment: Speci men Type: BLOOD SPECIMEN Ordering Facility: [facility] Address: [address] [place] [address] Performed By: #### 5 7021-8 #### [facility] CLIA [id number] [address] [place] [address] 20470 Monocytes/100 WBC (Bld) 7.8 % Normal [facility] Comment on above: Order Comment: Speci men Type: BLOOD SPECIMEN Ordering Facility: [facility] Address: [address] [place] [address] Performed By: #### 5 7021-8 #### [facility] CLIA [id number] [address] [place] [address]243 Neutrophils (Bld) [#/Vol] 4.00 10*3/uL Normal 1.45-7.50 [facility] Comment on above: Order Comment: Speci men Type: BLOOD SPECIMEN Ordering Facility: [facility] Address: [address] [place] [address] Performed By: #### 5 7021-8 #### [facility] CLIA [id number] [address] [place] [address] 67747 Neutrophils/100 WBC (Bld) 60.9 % Normal [facility] Comment on above: Order Comment: Speci men Type: BLOOD SPECIMEN Ordering Facility: [facility] Address: [address] [place] [address] Performed By: #### 5 7021-8 #### [facility] CLIA [id number] [address] [place] [address] Nucleated RBC (Bld) [#/Vol] 10*3/uL Normal <0.01 [facility] Comment on above: Order Comment: Speci men Type: BLOOD SPECIMEN Ordering Facility: [facility] Address: [address] [place] [address] Performed By: #### 5 7021-8 #### [facility] CLIA [id number] [address] [place] [address] Nucleated RBC/100 WBC (Bld) [Ratio] 0.0 /100 WBC Normal [facility] Comment on above: Order Comment: Speci men Type: BLOOD SPECIMEN Ordering Facility: [facility] Address: [address] [place] [address] Performed By: #### 5 7021-8 #### [facility] CLIA [id number] [address] [place] [address] 55873 Platelet mean volume (Bld) [Entitic vol] 8.2 fL Low 9.0-12.7 [facility] Comment on above: Order Comment: Speci men Type: BLOOD SPECIMEN Ordering Facility: [facility] Address: [address] [place] [address] Performed By: #### 5 7021-8 #### [facility] CLIA [id number] [address] [place] [address] 50874 Platelets (Bld) [#/Vol] 282 10*3/uL Normal 150-400 [facility] Comment on above: Order Comment: Speci men Type: BLOOD SPECIMEN Ordering Facility: [facility] Address: [address] [place] [address] Performed By: #### 5 7021-8 #### [facility] CLIA [id number] [address] [place] [address] 98244 RBC (Bld) [#/Vol] 3.92 10*6/uL Normal 3.90-5.[address] [facility] Comment on above: Order Comment: Speci men Type: BLOOD SPECIMEN Ordering Facility: [facility] Address: [address] [place] [address] Performed By: #### 5 7021-8 #### [facility] CLIA [id number] [address] [place] [address]80 WBC (Bld) [#/Vol] 6.56 10*3/uL Normal 3.70-11.[address] [facility] Comment on above: Order Comment: Speci men Type: BLOOD SPECIMEN [facility]ing Facility: [facility] Address: [address] [place] [address] Performed By: #### 5 7021-8 #### [facility] CLIA [id number] [address] [place] [address] CEA SerPl-nc 08-19-2024 Carcinoembryonic Ag [Mass/Vol] 3.5 ng/mL High <=2.9 [facility] Comment on above: Order Comment: Speci men Type: BLOOD SPECIMENOrdering Facility: [facility] Address: [address] [place] [address] Result Comment: Carc inoembryonic antigen test is used as an aid in monitoring response to treatment or recurrence in patients with established colorectal, breast, lung, prostatic, pancreatic, and ovarian carcinomas. Clinical correlation is required. The Carcinoembryonic antigen test was performed using the [employer] [place] [employer] DXI paramagnetic particle chemiluminescent immunoassay method. Results obtained with different assay methods or kits cannot be used interchangeably. Performed By: #### 2 039-6 ####[facility] [id number] [place] [address] [place] Comprehensive metabolic 2000 panelon 08-19-2024 Albumin [Mass/Vol] 4.1 g/dL Normal 3.9-4.9 [facility] Comment on above: Order Comment: Speci men Type: BLOOD SPECIMEN [facility] Facility: [facility] Address: [address] [place] [address] Performed By: #### 5 7021-8 #### [facility] CLIA [id number] [address] [place] [address]11 ALP [Catalytic activity/Vol] 80 U/L Normal 34-123 [facility] Comment on above: Order Comment: Speci men Type: BLOOD SPECIMEN [facility]ing Facility: [facility] Address: [address] [place] [address] Performed By: #### 5 7021-8 #### [facility] CLIA [id number] [address] [place] [address] ALT [Catalytic activity/Vol] 15 U/L Normal 7-38 [facility] Comment on above: Order Comment: Speci men Type: BLOOD SPECIMEN [facility] Facility: [facility] Address: [address] [place] [address] Performed By: #### 5 7021-8 #### [facility] CLIA [id number] [address] [place] [address] 10081 Anion gap [Moles/Vol] 8 mmol/L Normal 8-15 [facility] Comment on above: Order Comment: Speci men Type: BLOOD SPECIMEN [facility]ing Facility: [facility] Address: [address] [place], [place] [address] Performed By: #### 5 7021-8 #### [facility] CLIA [id number] [address] [place] [address] 26809 AST [Catalytic activity/Vol] 16 U/L Normal 13-35 [facility] Comment on above: Order Comment: Speci men Type: BLOOD SPECIMEN [facility] Facility: [facility] Address: [address] [place], [place] [address] Performed By: #### 5 7021-8 #### [facility] CLIA [id number] [address] [place] [address] 63819 Bilirubin [Mass/Vol] 0.3 mg/dL Normal 0.2-1.3 [facility] Comment on above: Order Comment: Speci men Type: BLOOD SPECIMEN [facility]ing Facility: [facility] Address: [address] [place], [place] [address] Performed By: #### 5 7021-8 #### [facility] CLIA [id number] [address] [place] [address]204 Calcium [Mass/Vol] 9.6 mg/dL Normal 8.5-10.2 [facility] Comment on above: Order Comment: Speci men Type: BLOOD SPECIMEN [facility]ing Facility: [facility] Address: [address] [place] [address] Performed By: #### 5 7021-8 #### [facility] CLIA [id number] [address] [place] [address] 42342 Chloride [Moles/Vol] 106 mmol/L Normal 98-107 [facility] Comment on above: Order Comment: Speci men Type: BLOOD SPECIMEN [facility]ing Facility: [facility] Address: [address] [place] [address] Performed By: #### 5 7021-8 #### [facility] CLIA [id number] [address] [place] [address] 13173 CO2 [Moles/Vol] 28 mmol/L Normal 22-30 [facility] Comment on above: Order Comment: Speci men Type: BLOOD SPECIMEN [facility]ing Facility: [facility] Address: [address] [place] [address] Performed By: #### 5 7021-8 #### [facility] CLIA [id number] [address] [place] [address] 86744 Creatinine [Mass/Vol] 0.74 mg/dL Normal 0.58-0.96 [facility] Comment on above: Order Comment: Speci men Type: BLOOD SPECIMEN [facility]ing Facility: [facility] Address: [address] [place] [address] Performed By: #### 5 7021-8 #### [facility] CLIA [id number] [address] [place] [address]26 Creatinine and Glomerular filtration rate.predicted panel (S/P/Bld) 87 mL/min/1.73m??? Normal >=60 [facility] Comment on above: Order Comment: Speci men Type: BLOOD SPECIMEN [facility] Facility: [facility] Address: [address] [place] [address] Result Comment: Farhana mated Glomerular Filtration Rate [...] GFR. Performed By: #### 5 7021-8 #### [facility] CLIA [id number] [address] [place] [address]703 Glucose [Mass/Vol] 108 mg/dL High 74-99 [facility] Comment on above: Order Comment: Mason simpson Type: BLOOD SPECIMEN [facility]ing Facility: [facility] Address: [address] [place] [address] Result Comment: The [place] Diabetes Association (ADA) provides guidance for cutoff [...] Standards of Medical Care in Diabetes 2016, [place] Diabetes Association. Diabetes Care. 2016.39(Suppl 1). Performed By: #### 5 7021-8 #### [facility] CLIA [id number] [address] [place] [address] 22584 Potassium [Moles/Vol] 4.2 mmol/L Normal 3.7-5.1 [facility] Comment on above: Order Comment: Mason simpson Type: BLOOD SPECIMEN [facility] Facility: [facility] Address: [address] [place] [address] Performed By: #### 5 7021-8 #### [facility] CLIA [id number] [address] [place] [address]77 Protein [Mass/Vol] 6.3 g/dL Normal 6.3-8.0 [facility] Comment on above: Order Comment: Speci men Type: BLOOD SPECIMEN [facility] Facility: [facility] Address: [facility] [address] [place] [address] Performed By: #### 5 7021-8 #### [facility] CLIA [id number] [address] [place] [address] 63825 Sodium [Moles/Vol] 142 mmol/L Normal 136-144 [facility] Comment on above: Order Comment: Speci men Type: BLOOD SPECIMEN [facility]ing Facility: [facility] Address: [address] [place] [address] Performed By: #### 5 7021-8 #### [facility] CLIA [id number] [address] [place] [address] 82356 Urea nitrogen [Mass/Vol] 23 mg/dL High 7-21 [facility] Comment on above: Order Comment: Speci men Type: BLOOD SPECIMEN [facility] Facility: [facility] Address: [address] [place] [address] Performed By: #### 5 7021-8 #### [facility] CLIA [id number] [address] [place] [address]132 Eosinophils/100 WBC Auto (Bl d)on 08-19-2024 Eosinophils/100 WBC (Bld) Automated eosinophil % [facility] Erythrocyte distribution wid th Auto (RBC) [Ratio]on 08-19-2024 Erythrocyte distribution width (RBC) [Ratio] Erythrocyte distribution width [Ratio] by Automated count 11.5-15.0 [facility] Hematocrit Auto (Bld) [Volum e fraction]on 08-19-2024 Hematocrit (Bld) [Volume fraction] Hematocrit [Volume Fraction] of Blood by Automated count Low 36.0-46.0 [facility] Hemoglobin [Mass/volume] in Bloodon 08-19-2024 Hemoglobin (Bld) [Mass/Vol] Hemoglobin [Mass/volume] in Blood 11.5-15.5 [facility] - Chemistry and C hemistry - challengeon 08-19-2024 Albumin [Mass/Vol] 4.1 g/dL 3.9-4.9 [facility] ALP [Catalytic activity/Vol] 80 U/L 34-123 [facility] ALT [Catalytic activity/Vol] 15 U/L 7-38 [facility] AST [Catalytic activity/Vol] 16 U/L 13-35 [facility] Bilirubin [Mass/Vol] 0.3 mg/dL 0.2-1.3 [facility] Calcium [Mass/Vol] 9.6 mg/dL 8.5-10.2 [facility] Chloride [Moles/Vol] 106 mmol/L 98-107 [facility] CO2 [Moles/Vol] 28 mmol/L 22-30 [facility] Creatinine [Mass/Vol] 0.74 mg/dL 0.58-0.96 [facility] Glucose [Mass/Vol] 108 mg/dL High 74-99 [facility] Comment on above: The [place] Diabete s Association (ADA) provides guidance for [...] Standards of Medical Care in Diabetes 2016, [place] Diabetes Association. Diabetes Care. 2016.39(Suppl 1). Potassium [Moles/Vol] 4.2 mmol/L 3.7-5.1 [facility] Sodium [Moles/Vol] 142 mmol/L 136-144 [facility] Urea nitrogen [Mass/Vol] 23 mg/dL High 7-21 [facility] - Hematology and Cell countson 08-19-2024 Eosinophils (Bld) [#/Vol] 0.25 10*3/uL <0.46 [facility] Immature granulocytes/100 WBC (Bld) 0.3 % [facility] Leukocytes [#/volume] correc french for nucleated erythrocytes in Blood by Automated counon 08-19-2024 WBC corrected for nucl RBC Auto (Bld) [#/Vol] Leukocytes [#/volume] corrected for nucleated erythrocytes in Blood by Automated coun 3.70-11.00 [facility] Lymphocytes Auto (Bld) [#/Vo l]on 08-19-2024 Lymphocytes (Bld) [#/Vol] Lymphocytes [#/volume] in Blood by Automated count 1.00-4.00 [facility] Lymphocytes/100 WBC Auto (Bl d)on 08-19-2024 Lymphocytes/100 WBC (Bld) Lymphocytes/100 leukocytes in Blood by Automated count [facility] MCH Auto (RBC) [Entitic mass ]on 08-19-2024 MCH (RBC) [Entitic mass] MCH [Entitic mass] by Automated count 26.0-34.0 [facility] MCHC Auto (RBC) [Mass/Vol]on 08-19-2024 MCHC (RBC) [Mass/Vol] MCHC [Mass/volume] by Automated count 30.5-36.0 [facility] MCV Auto (RBC) [Entitic vol] on 08-19-2024 MCV (RBC) [Entitic vol] MCV [Entitic volume] by Automated count 80.0-100.0 [facility] MISC SEND OUT TST 1on 2024 [facility] [place] RESULTS 1 View results in Scanned Documents link when available Normal [facility] Comment on above: Order Comment: Speci men Type: BLOOD SPECIMENOrdering Facility: [facility] Address: [address] [place] [address] Performed By: #### M ISC1 ####NON-INTERFACED REF LABSCLIA SEE SCANNED [facility] [id number] [address] OF [facility] REFERRAL LAB 1 (DROP-DOWN) [facility] Labs Normal [facility] Comment on above: Order Comment: Speci men Type: BLOOD SPECIMENOrdering Facility: [facility] Address: [address] [place] [address] Performed By: #### M ISC1 ####NON-INTERFACED REF LABSCLIA SEE SCANNED [facility] [id number] [place] [address] [place] TEST 1 Signatera Normal [facility] Comment on above: Order Comment: Speci men Type: BLOOD SPECIMENOrdering Facility: [facility] Address: [address] [place] [address] Performed By: #### M ISC1 ####NON-INTERFACED REF LABSCLIA SEE SCANNED [facility] [id number] [place] [address] [place] Monocytes Auto (Bld) [#/Vol] on 08-19-2024 Monocytes (Bld) [#/Vol] Automated blood monocyte count <0.87 [facility] Monocytes/100 WBC Auto (Bld) on 08-19-2024 Monocytes/100 WBC (Bld) Automated monocyte % [facility] Neutrophils Auto (Bld) [#/Vo l]on 08-19-2024 Neutrophils (Bld) [#/Vol] Neutrophils [#/volume] in Blood by Automated count 1.45-7.50 [facility] Neutrophils/100 WBC Auto (Bl d)on 08-19-2024 Neutrophils/100 WBC (Bld) Automated neutrophil % [facility] No Panel Informationon 08-19 Estimated GFR (CKD-EPI) 87 mL/min/1.73m??? >=60 [facility] Comment on above: Estimated Glomerular Filtration [...] Immature Granulocyte # (Auto) <0.03 k/uL <0.10 [facility] Reference Lab Notation [facility] Labs [facility] Reference Lab Test Name Signatera [facility] Reporting Documentation 1 View results in Scanned Documents link when available [facility] Nucleated RBC Auto (Bld) [#/ Vol]on 08-19-2024 Nucleated RBC (Bld) [#/Vol] Nucleated erythrocytes [#/volume] in Blood by Automated count <0.01 [facility] Nucleated erythrocytes [Pres ence] in Blood by Automated counton 08-19-2024 Nucleated RBC Auto Ql (Bld) Nucleated erythrocytes [Presence] in Blood by Automated count [facility] Platelet mean volume Auto (B ld) [Entitic vol]on 08-19-2024 Platelet mean volume (Bld) [Entitic vol] Platelet mean volume [Entitic volume] in Blood by Automated count Low 9.0-12.7 [facility] Platelets Auto (Bld) [#/Vol] on 08-19-2024 Platelets (Bld) [#/Vol] Platelets [#/volume] in Blood by Automated count 150-400 [facility] Protein [Mass/volume] in Ser um or Plasmaon 08-19-2024 Protein [Mass/Vol] Protein [Mass/volume ] in Serum or Plasma 6.3-8.0 [facility] RBC Auto (Bld) [#/Vol]on RBC (Bld) [#/Vol] Erythrocytes [#/volu me] in Blood by Automated count 3.90-5.20 [facility] Serum or plasma anion gap de terminationon 08-19-2024 Anion gap [Moles/Vol] Serum or plasma an ion gap determination 8-15 [facility] Cholesterol [Mass/volume] in Serum or PlasmaOrdered By: Charles Bazzi on 06-04-2024 Cholesterol [Mass/Vol] Cholesterol [Mass /volume] in Serum or Plasma 140-200 [facility] Comment on above: Chol less than 200 m g/dl low riskChol 201-239 mg/dl borderline riskChol 240 mg/dl and greater high risk Cholesterol in HDL [Mass/vol ume] in Serum or PlasmaOrdered By: Charles Bazzi on 06-04-2024 Cholesterol in HDL [Mass/Vol] Serum or plasma high density lipoprotein (HDL) cholesterol measurement 23-92 [facility] Comment on above: HDL CHOL ATP-III CLA SSIFICATION Cardiovascular RiskHDL > or equal to 60 mg/dL LOWHDL < 40 mg/dL HIGH Cholesterol in LDL Calc [Mas s/Vol]Ordered By: Charles Bazzi on 06-04-2024 Cholesterol in LDL [Mass/Vol] Cholesterol in LDL [Mass/volume] in Serum or Plasma by calculation 0-100 [facility] Comment on above: LDL ATP III CLASSIFI CATIONLDL less than 100 mg/dL OptimalLDL 100-129 mg/dL Near or above optimalLDL 130-159 mg/dL Borderline highLDL 160-189 mg/dL HighLDL greater than 189 mg/dL Very high Cholesterol in VLDL Calc [Ma ss/Vol]Ordered By: Charles Bazzi on 06-04-2024 Cholesterol in VLDL [Mass/Vol] Cholesterol in VLDL [Mass/volume] in Serum or Plasma by calculation [facility] Lipid Panelon 06-04-2024 Cholesterol [Mass/Vol] 171 mg/dL Normal 140-200 [facility] Comment on above: Result Comment: Chol less than 200 mg/dl low risk Chol 201-239 mg/dl borderline risk Chol 240 mg/dl and greater high risk Performed By: #### C UBLD #### [facility] [address] [place] [id number] [place] Cholesterol in HDL [Mass/Vol] 56 mg/dL Normal 23-92 [facility] Comment on above: Result Comment: HDL CHOL ATP-III CLASSIFICATION Cardiovascular Risk HDL > or equal to 60 mg/dL LOW HDL < 40 mg/dL HIGH Performed By: #### C UBLD #### [facility] [address] [place] [address] [place] Cholesterol.total/Chol esterol in HDL [Mass ratio] 3.1 {ratio} Normal <5.0 [facility] Comment on above: Performed By: #### C UBLD #### [facility] [address] [place] [address] [place] LDL Cholesterol,Calculated 88 mg/dL Normal 0-100 [facility] Comment on above: Result Comment: LDL ATP III CLASSIFICATION LDL less than 100 mg/dL Optimal LDL 100-129 mg/dL Near or above optimal LDL 130-159 mg/dL Borderline high LDL 160-189 mg/dL High LDL greater than 189 mg/dL Very high Performed By: #### C UBLD #### [facility] [address] [place] [address] [place] Triglyceride w/Reflex 136 mg/dL Normal 0-149 [facility] Comment on above: Result Comment: TRIG ATP III CLASSIFICATION TRIG less than 150 mg/dL Normal TRIG 150-199 mg/dL Borderline high TRIG 200-500 mg/dL High TRIG greater than 500 mg/dL Very high Standard traceable to the Center for Disease Conrtrol and Prevention (CDC) test method. Performed By: #### C UBLD #### [facility] [address] VLDL CHOLESTEROL 27 mg/dL Normal [facility] Comment on above: Performed By: #### C UBLD #### [facility] [address] Serum or plasma total choles terol/high density lipoprotein (HDL) cholesterol mass ratOrdered By: Charles Bazzi on 06-04-2024 Cholesterol.total/Chol esterol in HDL [Mass ratio] Serum or plasma total cholesterol/high density lipoprotein (HDL) cholesterol mass rat <5.0 [facility] Thyroid Stimulating Hormoneo n 06-04-2024 TSH Qn 1.94 m[IU]/L Normal 0.45-5.33 [facility] Comment on above: Result Comment: PERF ORMED BY: [place] [address] PATHOLOGIST HAND MOUNTER NICOLE SOW M.D. Performed By: #### C UBLD #### [facility] [address] Thyrotropin [Units/volume] i n Serum or PlasmaOrdered By: Charles Bazzi on 06-04-2024 TSH Qn Thyrotropin [Units/volume] in Serum or Plasma 0.45-5.33 [facility] Triglyceride [Mass/volume] i n Serum or PlasmaOrdered By: Charles Bazzi on 06-04-2024 Triglyceride [Mass/Vol] Triglyceride [Mass/volume] in Serum or Plasma 0-149 [facility] Comment on above: TRIG ATP III [...] RESISTANT TO ALL B-LACTAM DRUGS. PERFORMED BY: [place] [address] PATHOLOGIST HAND MOUNTER NICOLE SOW M.D. Normal [facility] Comment on above: Performed By: #### C UBLD #### [address] Anaerobic cultureOrdered By: Amanda Chester on 05-31-2024 Bacteria identified Anaer cx Nom (Unsp spec) Anaerobic culture [facility] Bacteria identified Aer cx N om (Unsp spec)Ordered By: Amanda Chester on 05-31-[address] [facility] Gram stain microscopyOrdered By: Amanda Chester on 05-31-2024 Microscopic observation Gram stain Nom (Unsp spec) Gram stain microscopy [facility] XR hand RT min 3V*on 024 XR hand RT min 3V* [facility] [address] [place] [place] [address] XRay Report Signed Patient: Evan Gill MR#: [id number] : 1955 Acct:[id number] Age/Sex: 68 / F ADM Date: 05/30/24 [place] [facility]: Type: [facility] Attending Dr: Jorge A Haji DO [...] Cameron Lares M.D.05/30/2024 4:14 PM Dictation Location: [place] [address] Transcribed By: [facility] 05/30/24 1614 Dictated By: Cameron Lares DO 05/30/24 1600 Signed By: 05/30/24 1614 Normal [facility] Basophils Auto (Bld) [#/Vol] Ordered By: Chris Henning on 05-23-2024 Basophils (Bld) [#/Vol] Automated basophil count 0.0-0.2 [facility] Basophils/100 WBC Auto (Bld) Ordered By: Chris Henning on 05-23-2024 Basophils/100 WBC (Bld) Automated basophil % . [facility] Blood Cultureon 05-23-2024 Bacteria identified Cx Nom (Bld) Blood Culture Results No Growth 5 Days PERFORMED BY: [place] [address] PATHOLOGIST HAND MOUNTER NICOLE SOW M.D. Normal [facility] Comment on above: Performed By: #### C UBLD #### [address] Bacteria identified Cx Nom (Bld) Blood Culture Results No Growth 5 Days PERFORMED BY: [place] [address] PATHOLOGIST HAND MOUNTER NICOLE SOW M.D. Normal [facility] Comment on above: Performed By: #### C UBLD #### [address] Complete Blood Count Auto Di ffon 05-23-2024 Basophils (Bld) [#/Vol] 0.1 10*3/uL Normal 0.0-0.2 [facility] Comment on above: Result Comment: PERF ORMED BY: [place] [address] PATHOLOGIST HAND MOUNTER NICOLE SOW M.D. Performed By: #### C UBLD #### [address] Basophils/100 WBC (Bld) 0.8 % Normal . [facility] Comment on above: Performed By: #### C UBLD #### [place] [address] [place] Eosinophils (Bld) [#/Vol] 0.2 10*3/uL Normal 0.0-0.45 [facility] Comment on above: Performed By: #### C UBLD #### [place] [address] [place] Eosinophils/100 WBC (Bld) 1.6 % Normal . [facility] Comment on above: Performed By: #### C UBLD #### [address] Erythrocyte distribution width (RBC) [Ratio] 14.9 % Normal 11.9-15.3 [facility] Comment on above: Performed By: #### C UBLD #### [address] Hematocrit (Bld) [Volume fraction] 32.5 % Low 34.0-46.4 [facility] Comment on above: Performed By: #### C UBLD #### [address] Hemoglobin (Bld) [Mass/Vol] 11.0 g/dL Low 11.8-15.4 [facility] Comment on above: Performed By: #### C UBLD #### [address] Lymphocytes (Bld) [#/Vol] 0.8 10*3/uL Low 1.00-4.8 [facility] Comment on above: Performed By: #### C UBLD #### [address] Lymphocytes/100 WBC (Bld) 9.1 % Normal . [facility] Comment on above: Performed By: #### C UBLD #### [address] MCH (RBC) [Entitic mass] 30.3 pg Normal 24.7-34.3 [facility] Comment on above: Performed By: #### C UBLD #### [address] MCV (RBC) [Entitic vol] 89.9 fL Normal 80-100 [facility] Comment on above: Performed By: #### C UBLD #### [address] Mean Corpuscular HGB Conc 33.7 g/dL Normal 32.0-35.0 [facility] Comment on above: Performed By: #### C UBLD #### [place] [address] [place] Monocytes (Bld) [#/Vol] 0.8 10*3/uL Normal 0.0-0.8 [facility] Comment on above: Performed By: #### C UBLD #### [address] Monocytes/100 WBC (Bld) 20.76 % High 0.00-20.00 [facility] Comment on above: Result Comment: For adults in ED, MDW > 20.0 may be associated with a higher risk of sepsis during the first 12 hrs of hospital admission Performed By: #### C UBLD #### [address] Monocytes/100 WBC (Bld) 8.2 % Normal . [facility] Comment on above: Performed By: #### C UBLD #### [address] Neutrophils (Bld) [#/Vol] 7.4 10*3/uL Normal 1.8-7.7 [facility] Comment on above: Performed By: #### C UBLD #### [address] Neutrophils/100 WBC (Bld) 80.3 % Normal . [facility] Comment on above: Performed By: #### C UBLD #### [place] [address] [place] NRBC% 0.0 /100{WBC} Normal 0-0.5 [facility] Comment on above: Performed By: #### C UBLD #### [place] [address] [place] Platelet mean volume (Bld) [Entitic vol] 7.0 fL Normal 6.3-10.7 [facility] Comment on above: Performed By: #### C UBLD #### [place] [address] [place] Platelets (Bld) [#/Vol] 265 10*3/uL Normal 150-450 [facility] Comment on above: Performed By: #### C UBLD #### [facility] [address] RBC (Bld) [#/Vol] 3.61 10*6/uL Normal 3.60-5.00 [facility] Comment on above: Performed By: #### C UBLD #### [facility] [address] WBC (Bld) [#/Vol] 9.2 10*3/uL Normal 3.8-11.6 [facility] [facility] Comment on above: Performed By: #### C UBLD #### [facility] [address] Eosinophils Auto (Bld) [#/Vo l]Ordered By: Chris Henning on 05-23-2024 Eosinophils (Bld) [#/Vol] Automated eosinophil count 0.0-0.45 [facility] Eosinophils/100 WBC Auto (Bl d)Ordered By: Chris Henning on 05-23-2024 Eosinophils/100 WBC (Bld) Automated eosinophil % . [facility] Erythrocyte distribution wid th Auto (RBC) [Ratio]Ordered By: Chris Henning on 05-23-2024 Erythrocyte distribution width (RBC) [Ratio] Erythrocyte distribution width [Ratio] by Automated count 11.9-15.3 [facility] Hematocrit Auto (Bld) [Volum e fraction]Ordered By: Chris Henning on 05-23-2024 Hematocrit (Bld) [Volume fraction] Hematocrit [Volume Fraction] of Blood by Automated count Low 34.0-46.4 [facility] Hemoglobin [Mass/volume] in BloodOrdered By: Chris Henning on 05-23-2024 Hemoglobin (Bld) [Mass/Vol] Hemoglobin [Mass/volume] in Blood Low 11.8-15.4 [facility] Laboratory - Microbiology an d Antimicrobial susceptibilityOrdered By: Chris Henning on 05-23-2024 Bacteria identified Cx Nom (Bld) [facility] Bacteria identified Cx Nom (Bld) [facility] Leukocytes [#/volume] correc french for nucleated erythrocytes in Blood by Automated counOrdered By: Chris Henning on 05-23-2024 WBC corrected for nucl RBC Auto (Bld) [#/Vol] Leukocytes [#/volume] corrected for nucleated erythrocytes in Blood by Automated coun 3.8-11.6 [facility] Lymphocytes Auto (Bld) [#/Vo l]Ordered By: Chris Henning on 05-23-2024 Lymphocytes (Bld) [#/Vol] Lymphocytes [#/volume] in Blood by Automated count Low 1.00-4.8 [facility] Lymphocytes/100 WBC Auto (Bl d)Ordered By: Chris Henning on 05-23-2024 Lymphocytes/100 WBC (Bld) Lymphocytes/100 leukocytes in Blood by Automated count . [facility] MCH Auto (RBC) [Entitic mass ]Ordered By: Chris Henning on 05-23-2024 MCH (RBC) [Entitic mass] MCH [Entitic mass] by Automated count 24.7-34.3 [facility] MCHC Auto (RBC) [Mass/Vol]Or dered By: Chris Henning on 05-23-2024 MCHC (RBC) [Mass/Vol] MCHC [Mass/volume] by Automated count 32.0-35.0 [facility] MCV Auto (RBC) [Entitic vol] Ordered By: Chris Henning on 05-23-2024 MCV (RBC) [Entitic vol] MCV [Entitic volume] by Automated count 80-100 [facility] Monocyte distribution width [Entitic volume] in Blood by AutomatedOrdered By: Chris Henning on 05-23-2024 Monocyte distribution width Auto (Bld) [Entitic vol] Monocyte distribution width [Entitic volume] in Blood by Automated High 0.00-20.00 [facility] Comment on above: For adults in ED, MD W > 20.0 may be associated with a higher risk of sepsis during the first 12 hrs of hospital admission Monocytes Auto (Bld) [#/Vol] Ordered By: Chris Henning on 05-23-2024 Monocytes (Bld) [#/Vol] Automated blood monocyte count 0.0-0.8 [facility] Monocytes/100 WBC Auto (Bld) Ordered By: Chris Henning on 05-23-2024 Monocytes/100 WBC (Bld) Automated monocyte % . [facility] Neutrophils Auto (Bld) [#/Vo l]Ordered By: Chris Henning on 05-23-2024 Neutrophils (Bld) [#/Vol] Neutrophils [#/volume] in Blood by Automated count 1.8-7.7 [facility] Neutrophils/100 WBC Auto (Bl d)Ordered By: Chris Henning on 05-23-2024 Neutrophils/100 WBC (Bld) Automated neutrophil % . [facility] Nucleated erythrocytes [Pres ence] in Blood by Automated countOrdered By: Chris Henning on 05-23-2024 Nucleated RBC Auto Ql (Bld) Nucleated erythrocytes [Presence] in Blood by Automated count 0-0.5 [facility] Platelet mean volume Auto (B ld) [Entitic vol]Ordered By: Chris Henning on 05-23-2024 Platelet mean volume (Bld) [Entitic vol] Platelet mean volume [Entitic volume] in Blood by Automated count 6.3-10.7 [facility] Platelets Auto (Bld) [#/Vol] Ordered By: Chris Henning on 05-23-2024 Platelets (Bld) [#/Vol] Platelets [#/volume] in Blood by Automated count 150-450 [facility] RBC Auto (Bld) [#/Vol]Ordere d By: Chris Henning on 05-23-2024 RBC (Bld) [#/Vol] Erythrocytes [#/volu me] in Blood by Automated count 3.60-5.00 [facility] WBC Auto (Bld) [#/Vol]Ordere d By: Chris Henning on 05-23-2024 WBC (Bld) [#/Vol] Leukocytes [#/volume ] in Blood by Automated count 3.8-11.6 [facility] Basic Metabolic Panelon 05-10 Anion gap [Moles/Vol] 13.0 mmol/L Normal 6.0-15.0 [facility] Comment on above: Performed By: #### B MP, CBC #### [address] Calcium [Mass/Vol] 8.2 mg/dL Low 8.6-10.3 [facility] Comment on above: Performed By: #### B MP, CBC #### [place] [address] [place] Chloride [Moles/Vol] 106 mmol/L Normal 98-107 [facility] Comment on above: Performed By: #### B MP, CBC #### [address] CO2 [Moles/Vol] 23.6 mmol/L Normal 21.0-31.0 [facility] Comment on above: Performed By: #### B MP, CBC #### [address] Creatinine [Mass/Vol] 0.56 mg/dL Low 0.60-1.20 [facility] Comment on above: Performed By: #### B MP, CBC #### [place] [address] [place] Creatinine Clr Calc Pharmacy 63.82 Normal [facility] Comment on above: Result Comment: PERF ORMED BY: [place] [address] PATHOLOGIST [employer] M[employer]TER NICOLE SOW M.D. Performed By: #### B MP, CBC #### [place] [address] [place] GFR/1.73 sq M.predicted MDRD (S/P/Bld) [Vol rate/Area] mL/min/{1.73_m2} Normal [facility] Comment on above: Performed By: #### B MP, CBC #### [place] [address] [place] Glucose [Mass/Vol] 129 mg/dL High 70-100 [facility] Comment on above: Result Comment: [place] om Glucose Reference Range is dependent on time and content of last meal. Glucose of more than 200 mg/dL in a nonstressed, ambulatory subject supports the diagnosis of Diabetes Mellitus. ADA recommended reference range Performed By: #### B MP, CBC #### [address] Potassium [Moles/Vol] 3.6 mmol/L Normal 3.5-5.1 [facility] Comment on above: Performed By: #### B MP, CBC #### [address] Sodium [Moles/Vol] 139 mmol/L Normal 136-145 [facility] Comment on above: Performed By: #### B MP, CBC #### [address] Urea nitrogen [Mass/Vol] 18 mg/dL Normal 7-25 [facility] Comment on above: Performed By: #### B MP, CBC #### [address] Basophils Auto (Bld) [#/Vol] Ordered By: Chris Henning on 05-22-2024 Basophils (Bld) [#/Vol] Automated basophil count 0.0-0.2 [facility] Basophils/100 WBC Auto (Bld) Ordered By: Chris Henning on 05-22-2024 Basophils/100 WBC (Bld) Automated basophil % . [facility] Blood Cultureon 05-22-2024 Bacteria identified Cx Nom (Bld) NO GROWTH 5 DAYS PERFORMED BY: [place] [address] PATHOLOGIST [employer] NICOLE SOW M.D. Normal [facility] Comment on above: Performed By: #### C UBLD #### [address] Bacteria identified Cx Nom (Bld) Results [...] Not detected Streptococcus pneumoniae - reported at [facility] Not detected Proteus sp DNA [Presence] by [...] culture Not detected Group A (Streptococcus pyogenes) [id number] Not detected Group B Strep (Streptococcus agalactiae) [...] (more content not included)... Normal [facility] Comment on above: Performed By: #### C UBLD #### [address] Calcium [Mass/volume] in Ser um or PlasmaOrdered By: Chris Henning on 05-22-2024 Calcium [Mass/Vol] Calcium [Mass/volume ] in Serum or Plasma Low 8.6-10.3 [facility] Carbon dioxide, total [Moles /volume] in Serum or PlasmaOrdered By: Chris Henning on 05-22-2024 CO2 [Moles/Vol] Carbon dioxide, tota l [Moles/volume] in Serum or Plasma 21.0-31.0 [facility] Chloride [Moles/volume] in S jeevan or PlasmaOrdered By: Chris Henning on 05-22-2024 Chloride [Moles/Vol] Chloride [Moles/vol ume] in Serum or Plasma 98-107 [facility] Complete Blood Count Auto Di ffon 05-22-2024 Basophils (Bld) [#/Vol] 0.1 10*3/uL Normal 0.0-0.2 [facility] Comment on above: Result Comment: PERF ORMED BY: [place] [address] PATHOLOGIST [employer] NICOLE SOW M.D. Performed By: #### B MP, CBC #### [address] Basophils/100 WBC (Bld) 0.6 % Normal . [facility] Comment on above: Performed By: #### B MP, CBC #### [address] Eosinophils (Bld) [#/Vol] 0.1 10*3/uL Normal 0.0-0.45 [facility] Comment on above: Performed By: #### B MP, CBC #### [address] Eosinophils/100 WBC (Bld) 1.1 % Normal . [facility] Comment on above: Performed By: #### B MP, CBC #### [address] Erythrocyte distribution width (RBC) [Ratio] 14.3 % Normal 11.9-15.3 [facility] Comment on above: Performed By: #### B MP, CBC #### [address] Hematocrit (Bld) [Volume fraction] 34.5 % Normal 34.0-46.4 [facility] Comment on above: Performed By: #### B MP, CBC #### [place] [address] [place] Hemoglobin (Bld) [Mass/Vol] 11.7 g/dL Low 11.8-15.4 [facility] Comment on above: Performed By: #### B MP, CBC #### [address] Lymphocytes (Bld) [#/Vol] 0.9 10*3/uL Low 1.00-4.8 [facility] Comment on above: Performed By: #### B MP, CBC #### [address] Lymphocytes/100 WBC (Bld) 9.0 % Normal . [facility] Comment on above: Performed By: #### B MP, CBC #### [address] MCH (RBC) [Entitic mass] 30.3 pg Normal 24.7-34.3 [facility] Comment on above: Performed By: #### B MP, CBC #### [address] MCV (RBC) [Entitic vol] 89.5 fL Normal 80-100 [facility] Comment on above: Performed By: #### B MP, CBC #### [address] Mean Corpuscular HGB Conc 33.9 g/dL Normal 32.0-35.0 [facility] Comment on above: Performed By: #### B MP, CBC #### [address] Monocytes (Bld) [#/Vol] 0.8 10*3/uL Normal 0.0-0.8 [facility] Comment on above: Performed By: #### B MP, CBC #### [address] Monocytes/100 WBC (Bld) 19.47 % Normal 0.00-20.00 [facility] Comment on above: Performed By: #### B MP, CBC #### [address] Monocytes/100 WBC (Bld) 7.4 % Normal . [facility] Comment on above: Performed By: #### B MP, CBC #### [facility] [address] Neutrophils (Bld) [#/Vol] 8.5 10*3/uL High 1.8-7.7 [facility] Comment on above: Performed By: #### B MP, CBC #### [facility] [address] Neutrophils/100 WBC (Bld) 81.9 % Normal . [facility] Comment on above: Performed By: #### B MP, CBC #### [facility] [address] NRBC% 0.0 /100{WBC} Normal 0-0.5 [facility] Comment on above: Performed By: #### B MP, CBC #### [facility] [address] Platelet mean volume (Bld) [Entitic vol] 6.8 fL Normal 6.3-10.7 [facility] Comment on above: Performed By: #### B MP, CBC #### [facility] [address] [place] [address] [place] Platelets (Bld) [#/Vol] 265 10*3/uL Normal 150-450 [facility] Comment on above: Performed By: #### B MP, CBC #### [facility] [address] [place] [address] [place] RBC (Bld) [#/Vol] 3.85 10*6/uL Normal 3.60-5.00 [facility] Comment on above: Performed By: #### B MP, CBC #### [facility] [address] [place] [address] [place] WBC (Bld) [#/Vol] 10.4 10*3/uL Normal 3.8-11.6 [facility] Comment on above: Performed By: #### B MP, CBC #### [facility] [address] [place] [address] [place] Creatinine [Mass/volume] in Serum or PlasmaOrdered By: Chris Henning on 05-22-2024 Creatinine [Mass/Vol] Creatinine [Mass/v olume] in Serum or Plasma Low 0.60-1.20 [facility] Eosinophils Auto (Bld) [#/Vo l]Ordered By: Chris Henning on 05-22-2024 Eosinophils (Bld) [#/Vol] Automated eosinophil count 0.0-0.45 [facility] Eosinophils/100 WBC Auto (Bl d)Ordered By: Chris Henning on 05-22-2024 Eosinophils/100 WBC (Bld) Automated eosinophil % . [facility] Erythrocyte distribution wid th Auto (RBC) [Ratio]Ordered By: Chris Henning on 05-22-2024 Erythrocyte distribution width (RBC) [Ratio] Erythrocyte distribution width [Ratio] by Automated count 11.9-15.3 [facility] Glucose [Mass/volume] in Ser um or PlasmaOrdered By: Chris Henning on 05-22-2024 Glucose [Mass/Vol] Glucose [Mass/volume ] in Serum or Plasma High 70-100 [facility] Comment on above: ADA recommended refe rence rangeRandom Glucose Reference Range is dependent on time and content of last meal. Glucose of more than 200 mg/dL in a nonstressed, ambulatory subject supports the diagnosis of Diabetes Mellitus. Hematocrit Auto (Bld) [Volum e fraction]Ordered By: Chris Henning on 05-22-2024 Hematocrit (Bld) [Volume fraction] Hematocrit [Volume Fraction] of Blood by Automated count 34.0-46.4 [facility] Hemoglobin [Mass/volume] in BloodOrdered By: Chris Henning on 05-22-2024 Hemoglobin (Bld) [Mass/Vol] Hemoglobin [Mass/volume] in Blood Low 11.8-15.4 [facility] Laboratory - Microbiology an d Antimicrobial susceptibilityOrdered By: Chris Henning on 05-22-2024 Bacteria identified Cx Nom (Bld) NO GROWTH [address] [facility] Bacteria identified Cx Nom (Bld) Abnormal [facility] Leukocytes [#/volume] correc french for nucleated erythrocytes in Blood by Automated counOrdered By: Chris Henning on 05-22-2024 WBC corrected for nucl RBC Auto (Bld) [#/Vol] Leukocytes [#/volume] corrected for nucleated erythrocytes in Blood by Automated coun 3.8-11.6 [facility] Lymphocytes Auto (Bld) [#/Vo l]Ordered By: Chris Henning on 05-22-2024 Lymphocytes (Bld) [#/Vol] Lymphocytes [#/volume] in Blood by Automated count Low 1.00-4.8 [facility] Lymphocytes/100 WBC Auto (Bl d)Ordered By: Chris Henning on 05-22-2024 Lymphocytes/100 WBC (Bld) Lymphocytes/100 leukocytes in Blood by Automated count . [facility] MCH Auto (RBC) [Entitic mass ]Ordered By: Chris Henning on 05-22-2024 MCH (RBC) [Entitic mass] MCH [Entitic mass] by Automated count 24.7-34.3 [facility] MCHC Auto (RBC) [Mass/Vol]Or dered By: Chris Henning on 05-22-2024 MCHC (RBC) [Mass/Vol] MCHC [Mass/volume] by Automated count 32.0-35.0 [facility] MCV Auto (RBC) [Entitic vol] Ordered By: Chris Henning on 05-22-2024 MCV (RBC) [Entitic vol] MCV [Entitic volume] by Automated count 80-100 [facility] Monocyte distribution width [Entitic volume] in Blood by AutomatedOrdered By: Chris Henning 05-22-2024 Monocyte distribution width Auto (Bld) [Entitic vol] Monocyte distribution width [Entitic volume] in Blood by Automated 0.00-20.00 [facility] Monocytes Auto (Bld) [#/Vol] Ordered By: Chris Henning on 05-22-2024 Monocytes (Bld) [#/Vol] Automated blood monocyte count 0.0-0.8 [facility] Monocytes/100 WBC Auto (Bld) Ordered By: Chris Henning on 05-22-2024 Monocytes/100 WBC (Bld) Automated monocyte % . [facility] Neutrophils Auto (Bld) [#/Vo l]Ordered By: Chris Henning on 05-22-2024 Neutrophils (Bld) [#/Vol] Neutrophils [#/volume] in Blood by Automated count High 1.8-7.7 [facility] Neutrophils/100 WBC Auto (Bl d)Ordered By: Chris Henning on 05-22-2024 Neutrophils/100 WBC (Bld) Automated neutrophil % . [facility] No Panel InformationOrdered By: Chris Henning on 05-22-2024 Bacterial ID (NA Multiplex Assay) [facility] Estimated GFR (CKD-EPI) > 60.0 mL/Min [facility] Creatinine Clearance (Chem 63.82 [facility] Nucleated erythrocytes [Pres ence] in Blood by Automated countOrdered By: Chris Henning on 05-22-2024 Nucleated RBC Auto Ql (Bld) Nucleated erythrocytes [Presence] in Blood by Automated count 0-0.5 [facility] Platelet mean volume Auto (B ld) [Entitic vol]Ordered By: Chris Henning on 05-22-2024 Platelet mean volume (Bld) [Entitic vol] Platelet mean volume [Entitic volume] in Blood by Automated count 6.3-10.7 [facility] Platelets Auto (Bld) [#/Vol] Ordered By: Chris Henning on 05-22-2024 Platelets (Bld) [#/Vol] Platelets [#/volume] in Blood by Automated count 150-450 [facility] Potassium [Moles/volume] in Serum or PlasmaOrdered By: Chris Henning on 05-22-2024 Potassium [Moles/Vol] Potassium [Moles/v olume] in Serum or Plasma 3.5-5.1 [facility] RBC Auto (Bld) [#/Vol]Ordere d By: Chris Henning on 05-22-2024 RBC (Bld) [#/Vol] Erythrocytes [#/volu me] in Blood by Automated count 3.60-5.00 [facility] Serum or plasma anion gap de terminationOrdered By: Chris Henning on 05-22-2024 Anion gap [Moles/Vol] Serum or plasma an ion gap determination 6.0-15.0 [facility] Sodium [Moles/volume] in Ser um or PlasmaOrdered By: Chris Henning on 05-22-2024 Sodium [Moles/Vol] Sodium [Moles/volume ] in Serum or Plasma 136-145 [facility] Urea nitrogen [Mass/volume] in Serum or PlasmaOrdered By: Chris Henning on 05-22-2024 Urea nitrogen [Mass/Vol] Urea nitrogen [Mass/volume] in Serum or Plasma 7-25 [facility] WBC Auto (Bld) [#/Vol]Ordere d By: Chris Henning on 05-22-2024 WBC (Bld) [#/Vol] Leukocytes [#/volume ] in Blood by Automated count 3.8-11.6 [facility] X-ray reportOrdered By: Debora Sanchez on 05-22-2024 Study report [facility] [place] [address] [place] [address] XRay Report Signed Patient: Evan Gill MR#: [id number] : 1955 Acct:[id number] Age/Sex: 68 / F ADM Date: 4 Loc: ER Room: Type: [facility] ER Attending Dr: Copies to: Chris Henning [...] Princess Sanchez M.D.05/22/2024 12:50 PM Dictation Location: RADIO-PC-23 Transcribed By: [place] 05/22/24 1250 Dictated By: Princess Sanchez MD 05/22/24 1245 Signed By: 05/22/[address] [facility] Work Phone: XR finger RT 3rd digiton XR finger RT 3rd digit [facility] Main [place] [address] [place] [address] XRay Report Signed Patient: Evan Gill MR#: [id number] : 1955 Acct:[id number] Age/Sex: 68 / F ADM Date: 05/22/24 Loc: ER Room: Type: [facility] ER Attending Dr: Copies to: Chris Henning [...] Princess Sanchez M.D.05/22/2024 12:50 PM Dictation Location: RADIO-PC-23 Transcribed By: [place] 05/22/24 1250 Dictated By: Princess Sanchez MD 05/22/24 1245 Signed By: 05/22/24 1250 Normal [facility] Basophils Auto (Bld) [#/Vol] on 05-08-2024 Basophils (Bld) [#/Vol] Automated basophil count <0.11 [facility] Basophils/100 WBC Auto (Bld) on 05-08-2024 Basophils/100 WBC (Bld) Automated basophil % [facility] Blood manual differential co mment interpretation narrativeon 05-08-2024 Manual differential comment Ankush (Bld) [Interp] Blood manual differential comment interpretation narrative [facility] CBC W Auto Differential pane l (Bld)on 05-08-2024 Basophils (Bld) [#/Vol] 0.06 10*3/uL Normal <0.11 [facility] Comment on above: Order Comment: Speci men Type: BLOOD SPECIMEN Ordering Facility: [facility] Address: [address] [place] [address] Performed By: #### 5 7021-8 #### [facility] CLIA [id number] [address] [place] [address] [place] Basophils/100 WBC (Bld) 1.0 % Normal [facility] Comment on above: Order Comment: Speci men Type: BLOOD SPECIMEN Ordering Facility: [facility] Address: [address] [place] [address] Performed By: #### 5 7021-8 #### [facility] [place] [id number] [address] [place] [address] [place] Differential cell count method Nom (Bld) Auto Normal [facility] Comment on above: Order Comment: Speci men Type: BLOOD SPECIMEN Ordering Facility: [facility] Address: [address] [place] [address] Performed By: #### 5 7021-8 #### [facility] CLIA [id number] [address] [place] [address] [place] Eosinophils (Bld) [#/Vol] 0.28 10*3/uL Normal <0.46 [facility] Comment on above: Order Comment: Speci men Type: BLOOD SPECIMEN Ordering Facility: [facility] Address: [address] [place] [address] Performed By: #### 5 7021-8 #### [facility] CLIA [id number] [id number] [place] Eosinophils/100 WBC (Bld) 4.5 % Normal [facility] Comment on above: Order Comment: Speci men Type: BLOOD SPECIMEN Ordering Facility: [facility] Address: [address] [place] [address] Performed By: #### 5 7021-8 #### [facility] CLIA [id number] [place] Erythrocyte distribution width (RBC) [Ratio] 14.1 % Normal 11.5-15.0 [facility] Comment on above: Order Comment: Speci men Type: BLOOD SPECIMEN Ordering Facility: [facility] Address: [address] [place] [address] Performed By: #### 5 7021-8 #### [facility] CLIA [id number] [place] Hematocrit (Bld) [Volume fraction] 40.3 % Normal 36.0-46.0 [facility] Comment on above: Order Comment: Speci men Type: BLOOD SPECIMEN Ordering Facility: [facility] Address: [address] [place] [address] Performed By: #### 5 7021-8 #### [facility] IA [id number] [address] [place] [address] [place] Hemoglobin (Bld) [Mass/Vol] 12.5 g/dL Normal 11.5-15.5 [facility] Comment on above: Order Comment: Speci men Type: BLOOD SPECIMEN Ordering Facility: [facility] Address: [address] [place] [address] Performed By: #### 5 7021-8 #### [facility] CLIA [id number] [address] [place] [address] [place] Immature granulocytes (Bld) [#/Vol] 10*3/uL Normal <0.10 [facility] Comment on above: Order Comment: Speci men Type: BLOOD SPECIMEN Ordering Facility: [facility] Address: [address] [place] [address] Performed By: #### 5 7021-8 #### [facility] CLIA [id number] [address] [place] [address] [place] Immature granulocytes/100 WBC (Bld) 0.2 % Normal [facility] Comment on above: Order Comment: Speci men Type: BLOOD SPECIMEN Ordering Facility: [facility] Address: [address] [place] [address] Performed By: #### 5 7021-8 #### [facility] CLIA [id number] [address] [place] [address] [place] Lymphocytes (Bld) [#/Vol] 1.48 10*3/uL Normal 1.00-4.00 [facility] Comment on above: Order Comment: Speci men Type: BLOOD SPECIMEN Ordering Facility: [facility] Address: [address] [place] [address] Performed By: #### 5 7021-8 #### [facility] IA [id number] [address] [place] [address] [place] Lymphocytes/100 WBC (Bld) 23.9 % Normal [facility] Comment on above: Order Comment: Speci men Type: BLOOD SPECIMEN Ordering Facility: [facility] Address: [address] [place] [address] Performed By: #### 5 7021-8 #### [facility] IA [id number] [address] [place] [address] [place] MCH (RBC) [Entitic mass] 29.5 pg Normal 26.0-34.0 [facility] Comment on above: Order Comment: Speci men Type: BLOOD SPECIMEN [facility] Facility: [facility] Address: [address] [place] [address] Performed By: #### 5 7021-8 #### [facility] [place] [id number] [place] [address] [place] MCHC (RBC) [Mass/Vol] 31.0 g/dL Normal 30.5-36.0 [facility] Comment on above: Order Comment: Speci men Type: BLOOD SPECIMEN [facility] Facility: [facility] Address: [address] [place] [address] Performed By: #### 5 7021-8 #### [facility] IA [id number] [address] [place] [address] [place] MCV (RBC) [Entitic vol] 95.0 fL Normal 80.0-100.0 [facility] Comment on above: Order Comment: Speci men Type: BLOOD SPECIMEN [facility] Facility: [facility] Address: [address] [place] [address] Performed By: #### 5 7021-8 #### [facility] IA [id number] [address] [place] [address] [place] Monocytes (Bld) [#/Vol] 0.41 10*3/uL Normal <0.87 [facility] Comment on above: Order Comment: Speci men Type: BLOOD SPECIMEN [facility] Facility: [facility] Address: [address] [place] [address] Performed By: #### 5 7021-8 #### [facility] IA [id number] [address] [place] [address] [place] Monocytes/100 WBC (Bld) 6.6 % Normal [facility] Comment on above: Order Comment: Speci men Type: BLOOD SPECIMEN [facility] Facility: [facility] Address: [address] [place] [address] Performed By: #### 5 7021-8 #### [facility] IA [id number] [address] [place] [address] [place] Neutrophils (Bld) [#/Vol] 3.94 10*3/uL Normal 1.45-7.50 [facility] Comment on above: Order Comment: Speci men Type: BLOOD SPECIMEN [facility] Facility: [facility] Address: [address] [place] [address] Performed By: #### 5 7021-8 #### [facility] IA [id number] [address] [facility] [place] [address] [place] Neutrophils/100 WBC (Bld) 63.8 % Normal [facility] Comment on above: Order Comment: Speci men Type: BLOOD SPECIMEN [facility] Facility: [facility] Address: [address] [place] [address] Performed By: #### 5 7021-8 #### [facility] IA [id number] [address] [place] [address] [place] Nucleated RBC (Bld) [#/Vol] 10*3/uL Normal <0.01 [facility] Comment on above: Order Comment: Speci men Type: BLOOD SPECIMEN [facility] Facility: [facility] Address: [address] [place] [address] Performed By: #### 5 7021-8 #### [facility] IA [id number] [address] [place] [address] [place] Nucleated RBC/100 WBC (Bld) [Ratio] 0.0 /100 WBC Normal [facility] Comment on above: Order Comment: Speci men Type: BLOOD SPECIMEN [facility] Facility: [facility] Address: [address] [place] [address] Performed By: #### 5 7021-8 #### [facility] IA [id number] [address] [place] [address] [place] Platelet mean volume (Bld) [Entitic vol] 8.8 fL Low 9.0-12.7 [facility] Comment on above: Order Comment: Speci men Type: BLOOD SPECIMEN [facility] Facility: [facility] Address: [address] [place] [address] Performed By: #### 5 7021-8 #### [facility] IA [id number] [address] [place] [address] [place] Platelets (Bld) [#/Vol] 268 10*3/uL Normal 150-400 [facility] Comment on above: Order Comment: Speci men Type: BLOOD SPECIMEN [facility] Facility: [facility] Address: [address] [place] [address] Performed By: #### 5 7021-8 #### [facility] IA [id number] [address] [place] [address] [facility] RBC (Bld) [#/Vol] 4.24 10*6/uL Normal 3.90-5.20 [facility] Comment on above: Order Comment: Speci men Type: BLOOD SPECIMEN [facility]ing Facility: [facility] Address: [address] [place] [address] Performed By: #### 5 7021-8 #### [facility] CLIA [id number] OF [facility] WBC (Bld) [#/Vol] 6.18 10*3/uL Normal 3.70-11.00 [facility] Comment on above: Order Comment: Speci men Type: BLOOD SPECIMEN [facility] Facility: [facility] Address: [address] [place] [address] Performed By: #### 5 7021-8 #### [facility] CLIA [id number] [facility] Carcinoembryonic Ag [Mass/Vol] 2.8 ng/mL Normal <=2.9 [facility] Comment on above: Order Comment: Speci men Type: BLOOD SPECIMENOrdering Facility: [facility] Address: [address] [place] [address] Result Comment: Carc inoembryonic antigen test is used as an aid in monitoring response to treatment or recurrence in patients with established colorectal, breast, lung, prostatic, pancreatic, and ovarian carcinomas. Clinical correlation is required. The Carcinoembryonic antigen test was performed using the Tony Rapport Unicel DXI paramagnetic particle chemiluminescent immunoassay method. Results obtained with different assay methods or kits cannot be used interchangeably. Performed By: #### 2 039-6 ####[facility] [id number] [address] [place] CNOVSPon 05-08-2024 CNOVSP Visit (SP) Office (HEMAVN) ----- EVAN GILL ([id number]) 1955 F Date Time Provider Department 05/08/24 1:45 PM TAPAN [place] During your visit today, we recorded the following information about you: Temperature Pulse Respiration Blood pressure 99 degrees 70/minute 18/minute 132/71 Weight Height 69.4 kg 1.626 m Tapan [place] MD 05/08/2024 2:21 PM Signed PATIENT NAME: Evan Gill CLINIC NO.: [id number] ATTENDING PHYSICIAN: Tapan [place] MD DATE OF [...] 02/06/2024 3 (more content not included)... Normal [facility] Comprehensive metabolic 2000 panelon 05-08-2024 Albumin [Mass/Vol] 4.4 g/dL Normal 3.9-4.9 [facility] Comment on above: Order Comment: Speci men Type: BLOOD SPECIMEN [facility] Facility: [facility] Address: [address] [place] [address] Performed By: #### 2 4323-8 #### [facility] CLIA [id number] [address] [place] [address] [place] ALP [Catalytic activity/Vol] 65 U/L Normal 34-123 [facility] Comment on above: Order Comment: Speci men Type: BLOOD SPECIMEN [facility] Facility: [facility] Address: [address] [place] [address] Performed By: #### 2 4323-8 #### [facility] CLIA [id number] [address] [place] [address] [place] ALT [Catalytic activity/Vol] 21 U/L Normal 7-38 [facility] Comment on above: Order Comment: Speci men Type: BLOOD SPECIMEN [facility] Facility: [facility] Address: [address] [place] [address] Performed By: #### 2 4323-8 #### [facility] CLIA [id number] [address] [place] [address] [place] Anion gap [Moles/Vol] 9 mmol/L Normal 8-15 [facility] Comment on above: Order Comment: Speci men Type: BLOOD SPECIMEN [facility] Facility: [facility] Address: [address] [place] [address] Performed By: #### 2 4323-8 #### [facility] CLIA [id number] [address] [place] [address] [place] AST [Catalytic activity/Vol] 24 U/L Normal 13-35 [facility] Comment on above: Order Comment: Speci men Type: BLOOD SPECIMEN [facility] Facility: [facility] Address: [address] [place] [address] Performed By: #### 2 4323-8 #### [facility] CLIA [id number] [address] [place] [address] [place] Bilirubin [Mass/Vol] 0.3 mg/dL Normal 0.2-1.3 [facility] Comment on above: Order Comment: Speci men Type: BLOOD SPECIMEN [facility]ing Facility: [facility] Address: [address] [place] [address] Performed By: #### 2 4323-8 #### [facility] CLIA [id number] [address] [place] [address] [place] Calcium [Mass/Vol] 9.6 mg/dL Normal 8.5-10.2 [facility] Comment on above: Order Comment: Speci men Type: BLOOD SPECIMEN [facility]ing Facility: [facility] Address: [address] [place] [address] Performed By: #### 2 4323-8 #### [facility] CLIA [id number] [address] [place] [address] [place] Chloride [Moles/Vol] 106 mmol/L Normal 98-107 [facility] Comment on above: Order Comment: Speci men Type: BLOOD SPECIMEN [facility]ing Facility: [facility] Address: [address] [place] [address] Performed By: #### 2 4323-8 #### [facility] CLIA [id number] [address] [place] [address] [place] CO2 [Moles/Vol] 28 mmol/L Normal 22-30 [facility] Comment on above: Order Comment: Speci men Type: BLOOD SPECIMEN [facility]ing Facility: [facility] Address: [address] [place] [address] Performed By: #### 2 4323-8 #### [facility] CLIA [id number] [address] [place], [place] [id number] [place] [address] [place] [facility] Creatinine [Mass/Vol] 0.69 mg/dL Normal 0.58-0.96 [facility] Comment on above: Order Comment: Speci men Type: BLOOD SPECIMEN [facility]ing Facility: [facility] Address: [address] [place] [address] Performed By: #### 2 4323-8 #### [facility] CLIA [id number] Creatinine and Glomerular filtration rate.predicted panel (S/P/Bld) 93 mL/min/1.73m??? Normal >=60 [facility] Comment on above: Order Comment: Speci men Type: BLOOD SPECIMEN [facility]ing Facility: [facility] Address: [address] [place] [address] Result Comment: Farhana mated Glomerular Filtration Rate [...] GFR. Performed By: #### 2 4323-8 #### [facility] CLIA [id number] [address] [place] [address] [place] Glucose [Mass/Vol] 107 mg/dL High 74-99 [facility] Comment on above: Order Comment: Mason simpson Type: BLOOD SPECIMEN Ordering Facility: [facility] Address: [address] [place] [address] Result Comment: The [place] Diabetes Association (ADA) provides guidance for cutoff [...] Standards of Medical Care in Diabetes 2016, [place] [employer] Association. Diabetes Care. 2016.39(Suppl 1). Performed By: #### 2 4323-8 #### [facility] CLIA [id number] [address] [place] [address] [place] Potassium [Moles/Vol] 4.8 mmol/L Normal 3.7-5.1 [facility] Comment on above: Order Comment: Mason simpson Type: BLOOD SPECIMEN Ordering Facility: [facility] Address: [address] [place] [address] Performed By: #### 2 4323-8 #### [facility] CLIA [id number] [address] [place] [address] [place] Protein [Mass/Vol] 6.8 g/dL Normal 6.3-8.0 [facility] Comment on above: Order Comment: Mason simpson Type: BLOOD SPECIMEN Ordering Facility: [facility] Address: [address] [place] [address] Performed By: #### 2 4323-8 #### [facility] CLIA [id number] [address] [place] [address] [place] Sodium [Moles/Vol] 143 mmol/L Normal 136-144 [facility] Comment on above: Order Comment: Speci men Type: BLOOD SPECIMEN Ordering Facility: [facility] Address: [address] [place] [address] Performed By: #### 2 4323-8 #### [facility] CLIA [id number] [address] [place] [address] [place] Urea nitrogen [Mass/Vol] 17 mg/dL Normal 01-27 [facility] Comment on above: Order Comment: Speci men Type: BLOOD SPECIMEN [facility] Facility: [facility] Address: [address] [place] [id number] Performed By: #### 2 4323-8 #### [facility] CLIA [id number] [address] [place] [address] [place] Eosinophils/100 WBC Auto (Bl d)on 05-08-2024 Eosinophils/100 WBC (Bld) Automated eosinophil % [facility] Erythrocyte distribution wid th Auto (RBC) [Ratio]on 05-08-2024 Erythrocyte distribution width (RBC) [Ratio] Erythrocyte distribution width [Ratio] by Automated count 11.5-15.0 [facility] Hematocrit Auto (Bld) [Volum e fraction]on 05-08-2024 Hematocrit (Bld) [Volume fraction] Hematocrit [Volume Fraction] of Blood by Automated count 36.0-46.0 [facility] Hemoglobin [Mass/volume] in Bloodon 05-08-2024 Hemoglobin (Bld) [Mass/Vol] Hemoglobin [Mass/volume] in Blood 11.5-15.5 [facility] - Chemistry and C hemistry - challengeon 05-08-2024 Albumin [Mass/Vol] 4.4 g/dL 3.9-4.9 [facility] ALP [Catalytic activity/Vol] 65 U/L 34-123 [facility] ALT [Catalytic activity/Vol] 21 U/L 7-38 [facility] AST [Catalytic activity/Vol] 24 U/L 13-35 [facility] Bilirubin [Mass/Vol] 0.3 mg/dL 0.2-1.3 [facility] Calcium [Mass/Vol] 9.6 mg/dL 8.5-10.2 [facility] Chloride [Moles/Vol] 106 mmol/L 98-107 [facility] CO2 [Moles/Vol] 28 mmol/L 22-30 [facility] Creatinine [Mass/Vol] 0.69 mg/dL 0.58-0.96 [facility] Glucose [Mass/Vol] 107 mg/dL High 74-99 [facility] Comment on above: The [place] Diabete s Association (ADA) provides guidance for [...] Standards of Medical Care in Diabetes 2016, [place] Diabetes Association. Diabetes Care. 2016.39(Suppl 1). Potassium [Moles/Vol] 4.8 mmol/L 3.7-5.1 [facility] Sodium [Moles/Vol] 143 mmol/L 136-144 [facility] Urea nitrogen [Mass/Vol] 17 mg/dL 7- [facility] Laboratory - Hematology and Cell countson 05-08-2024 Eosinophils (Bld) [#/Vol] 0.28 10*3/uL <0.46 [facility] Immature granulocytes/100 WBC (Bld) 0.2 % [facility] Leukocytes [#/volume] correc french for nucleated erythrocytes in Blood by Automated counon 05-08-2024 WBC corrected for nucl RBC Auto (Bld) [#/Vol] Leukocytes [#/volume] corrected for nucleated erythrocytes in Blood by Automated coun 3.70-11.00 [facility] Lymphocytes Auto (Bld) [#/Vo l]on 05-08-2024 Lymphocytes (Bld) [#/Vol] Lymphocytes [#/volume] in Blood by Automated count 1.00-4.00 [facility] Lymphocytes/100 WBC Auto (Bl d)on 05-08-2024 Lymphocytes/100 WBC (Bld) Lymphocytes/100 leukocytes in Blood by Automated count [facility] MCH Auto (RBC) [Entitic mass ]on 05-08-2024 MCH (RBC) [Entitic mass] MCH [Entitic mass] by Automated count 26.0-34.0 [facility] MCHC Auto (RBC) [Mass/Vol]on 05-08-2024 MCHC (RBC) [Mass/Vol] MCHC [Mass/volume] by Automated count 30.5-36.0 [facility] MCV Auto (RBC) [Entitic vol] on 05-08-2024 MCV (RBC) [Entitic vol] MCV [Entitic volume] by Automated count 80.0-100.0 [facility] Monocytes Auto (Bld) [#/Vol] on 05-08-2024 Monocytes (Bld) [#/Vol] Automated blood monocyte count <0.87 [facility] Monocytes/100 WBC Auto (Bld) on 05-08-2024 Monocytes/100 WBC (Bld) Automated monocyte % [facility] Neutrophils Auto (Bld) [#/Vo l]on 05-08-2024 Neutrophils (Bld) [#/Vol] Neutrophils [#/volume] in Blood by Automated count 1.45-7.50 [facility] Neutrophils/100 WBC Auto (Bl d)on 05-08-2024 Neutrophils/100 WBC (Bld) Automated neutrophil % [facility] No Panel Informationon 05-08 Estimated GFR (CKD-EPI) 93 mL/min/1.73m??? >=60 [facility] Comment on above: Estimated Glomerular Filtration [...] Immature Granulocyte # (Auto) <0.03 k/uL <0.10 [facility] Nucleated RBC Auto (Bld) [#/ Vol]on 05-08-2024 Nucleated RBC (Bld) [#/Vol] Nucleated erythrocytes [#/volume] in Blood by Automated count <0.01 [facility] Nucleated erythrocytes [Pres ence] in Blood by Automated counton 05-08-2024 Nucleated RBC Auto Ql (Bld) Nucleated erythrocytes [Presence] in Blood by Automated count [facility] Platelet mean volume Auto (B ld) [Entitic vol]on 05-08-2024 Platelet mean volume (Bld) [Entitic vol] Platelet mean volume [Entitic volume] in Blood by Automated count Low 9.0-12.7 [facility] Platelets Auto (Bld) [#/Vol] on 05-08-2024 Platelets (Bld) [#/Vol] Platelets [#/volume] in Blood by Automated count 150-400 [facility] Protein [Mass/volume] in Ser um or Plasmaon 05-08-2024 Protein [Mass/Vol] Protein [Mass/volume ] in Serum or Plasma 6.3-8.0 [facility] RBC Auto (Bld) [#/Vol]on RBC (Bld) [#/Vol] Erythrocytes [#/volu me] in Blood by Automated count 3.90-5.20 [facility] Serum or plasma anion gap de terminationon 05-08-2024 Anion gap [Moles/Vol] Serum or plasma an ion gap determination 15 [facility] CNOVon 04-10-2024 CNOV Office Visit (RADTSA ) ----- EVAN GILL ([id number]) 1955 F Date Time Provider Department 04/10/24 [...] daily. [place] (more content not included)... Normal [facility] IGP,APTIMA HPV,AGE GDLNon AGE GDLN ACOG TESTING Note . [facility] Comment on above: TESTS RESULT FLAG UN ITS REF RANGE LAB Clinician Provided Cytology Information Source.............Cervix;Endocervix No. of containers..01 ThinPrep Vial Age Algo ACOG Katie... Note 01 <21 or >65 or no age provided FLAG LEGEND: L-Low Normal,H-High Normal,LL-Alert Low,HH-Alert High <-Panic Low,>-Panic High,A-Abnormal,AA-Critical Abnormal Performed at: 01 =G [facility] [address] [place] [address] Macey Newell MD, PAP IG (IMAGE GUIDED) Note . [facility] Comment on above: TESTS RESULT FLAG UN ITS REF RANGE LAB DIAGNOSIS: 02 NEGATIVE FOR INTRAEPITHELIAL LESION OR MALIGNANCY. CELLULAR CHANGES ASSOCIATED WITH INFLAMMATION ARE PRESENT. THIS SPECIMEN WAS RESCREENED PART OF OUR QUALITY TECHNICIAN [employer] PROGRAM. Specimen adequacy: 02 Satisfactory for evaluation. Endocervical and/or squamous metaplastic cells (endocervical component) are present. Performed by: 03 Hailee Jeffery, Analytical Statistician ([facility]) QC reviewed by: 02 Kari French, Analytical Statistician . 02 Note: Note 02 The Pap [...] <-Panic Low,>-Panic High,A-Abnormal,AA-Critical Abnormal Performed at: [address] [address] Macey Newell MD, 03 [facility] [address] [address] Dennise PhD, Performed at: = - [address] [id number] Powerhouse Mechanic Helper: Macey Newell MD, Phone: [phone] Performed at: [facility] [id number] Powerhouse Mechanic Helper: Macey Newell MD, Phone: [phone] BRUSH-SPATULA CERVIX ENDOCERVIX [facility] Basic metabolic 2000 panelon 11-10-2023 Anion gap [Moles/Vol] 11 mmol/L Normal 9-18 [facility] Comment on above: Order Comment: Speci men Type: BLOOD SPECIMENOrdering Facility: [facility] Address: [address] [place] [address] Performed By: #### 2 4321-2, 2777-1, 21883-5 ####[facility]ORY[facility]IA [id number] [place] [address] [place] Calcium [Mass/Vol] 9.0 mg/dL Normal 8.5-10.2 [facility] Comment on above: Order Comment: Speci men Type: BLOOD SPECIMENOrdering Facility: [facility] Address: [address] [place] [address] Performed By: #### 2 4321-2, 2776-07, ####[facility] LABORATORYCLIA [id number] [place] [id number] [place] Chloride [Moles/Vol] 102 mmol/L Normal 97-105 [facility] Comment on above: Order Comment: Speci men Type: BLOOD SPECIMENOrdering Facility: [facility] Address: [address] [place] [address] Performed By: #### 2 4321-2, 2776-07, ####[facility]ORY[facility] [id number] [place] [id number] [place] CO2 [Moles/Vol] 28 mmol/L Normal 22-30 [facility] Comment on above: Order Comment: Speci men Type: BLOOD SPECIMENOrdering Facility: [facility] Address: [address] [place] [address] Performed By: #### 2 4321-2, 2776-07, ####[facility] LABORATORYCLIA [id number] [place] [id number] [place] Creatinine [Mass/Vol] 0.60 mg/dL Normal 0.58-0.96 [facility] Comment on above: Order Comment: Speci men Type: BLOOD SPECIMENOrdering Facility: [facility] Address: [address] [place] [address] Performed By: #### 2 4321-2, 2776-07, ####[facility]ORYCLIA [id number] [place] [id number] [place] Creatinine and Glomerular filtration rate.predicted panel (S/P/Bld) 97 mL/min/1.73m??? Normal >=60 [facility] Comment on above: Order Comment: Speci men Type: BLOOD SPECIMENOrdering Facility: [facility] Address: [address] [place] [address] Result Comment: Farhana mated Glomerular Filtration Rate [...] actual GFR. Performed By: #### 2 4321-2, 2776-07, ####[facility] LABORATORYCLIA [id number] [place] [id number] [place] Glucose [Mass/Vol] 101 mg/dL High 74-99 [facility] Comment on above: Order Comment: Mason simpson Type: BLOOD SPECIMENOrdering Facility: [facility] Address: [address] [place] [address] Result Comment: The [place] Diabetes Association (ADA) provides guidance for cutoff [...] Standards of Medical Care in Diabetes 2016, [place] Diabetes Association. Diabetes Care. 2016.39(Suppl 1). Performed By: #### 2 4321-2, 2776-07, ####[facility] LABORATORYCLIA [id number] [place] [id number] [place] Potassium [Moles/Vol] 3.5 mmol/L Low 3.7-5.1 [facility] Comment on above: Order Comment: Mason simpson Type: BLOOD SPECIMENOrdering Facility: [facility] Address: [address] [place] [address] Performed By: #### 2 4321-2, 27701-07, ####[facility] LABORATORYCLIA [id number] [place] [id number] [place] Sodium [Moles/Vol] 141 mmol/L Normal 136-144 [facility] Comment on above: Order Comment: Speci men Type: BLOOD SPECIMENOrdering Facility: [facility] Address: [address] [place] [address] Performed By: #### 2 4321-2, 2776-07, ####[facility]ORYCLIA [id number] [place] [id number] [place] Urea nitrogen [Mass/Vol] 8 mg/dL Normal 7-21 [facility] Comment on above: Order Comment: Speci men Type: BLOOD SPECIMENOrdering Facility: [facility] Address: [address] [place] [address] Performed By: #### 2 4321-2, 2776-07, ####[facility]ATORYCLIA [id number] [address] [place] CBC panel Auto (Bld)on 11-09 Erythrocyte distribution width (RBC) [Ratio] 13.8 % Normal 11.5-15.0 [facility] Comment on above: Order Comment: Speci men Type: BLOOD SPECIMENOrdering Facility: [facility] Address: [address] [place] [address] Performed By: #### 5 8410-2 ####[facility] LABORATORYCLIA [id number] [place] [id number] [place] Hematocrit (Bld) [Volume fraction] 32.4 % Low 36.0-46.0 [facility] Comment on above: Order Comment: Speci men Type: BLOOD SPECIMENOrdering Facility: [facility] Address: [address] [place] [address] Performed By: #### 5 8410-2 ####[facility]ORYCLIA [id number] [place] [place] [id number] [place] Hemoglobin (Bld) [Mass/Vol] 10.7 g/dL Low 11.5-15.5 [facility] Comment on above: Order Comment: Speci men Type: BLOOD SPECIMENOrdering Facility: [facility] Address: [address] [place] [address] Performed By: #### 5 8410-2 ####[facility] LABORATORYCLIA [id number] [address] [place] [facility] MCH (RBC) [Entitic mass] 29.6 pg Normal 26.0-34.0 [facility] Comment on above: Order Comment: Speci men Type: BLOOD SPECIMENOrdering Facility: [facility] Address: [address] [place] [address] Performed By: #### 5 8410-2 ####[facility]ORATORYCLIA [id number] [address] [place] MCHC (RBC) [Mass/Vol] 33.0 g/dL Normal 30.5-36.0 [facility] Comment on above: Order Comment: Speci men Type: BLOOD SPECIMENOrdering Facility: [facility] Address: [address] [place] [address] Performed By: #### 5 8410-2 ####[facility] LABORATORYCLIA [id number] [address] [place] MCV (RBC) [Entitic vol] 89.5 fL Normal 80.0-100.0 [facility] Comment on above: Order Comment: Speci men Type: BLOOD SPECIMENOrdering Facility: [facility] Address: [address] [place] [address] Performed By: #### 5 8410-2 ####[facility] LABORATORYCLIA [id number] [address] [place] Nucleated RBC (Bld) [#/Vol] 10*3/uL Normal <0.01 [facility] Comment on above: Order Comment: Speci men Type: BLOOD SPECIMENOrdering Facility: [facility] Address: [address] [place] [address] Performed By: #### 5 8410-2 ####[facility] LABORATORYCLIA [id number] [place] [address] [place] Platelet mean volume (Bld) [Entitic vol] 8.8 fL Low 9.0-12.7 [facility] Comment on above: Order Comment: Speci men Type: BLOOD SPECIMENOrdering Facility: [facility] Address: [address] [place] [address] Performed By: #### 5 8410-2 ####[facility] LABORATORYCLIA [id number] [place] [id number] [place] Platelets (Bld) [#/Vol] 285 10*3/uL Normal 150-400 [facility] Comment on above: Order Comment: Speci men Type: BLOOD SPECIMENOrdering Facility: [facility] Address: [address] [place] [address] Performed By: #### 5 8410-2 ####[facility] LABORATORYCLIA [id number] [place] [address] [place] RBC (Bld) [#/Vol] 3.62 10*6/uL Low 3.90-5.20 [facility] Comment on above: Order Comment: Speci men Type: BLOOD SPECIMENOrdering Facility: [facility] Address: [address] [place] [address] Performed By: #### 5 8410-2 ####[facility] LABORATORYCLIA [id number] [place] [address] [place] WBC (Bld) [#/Vol] 7.91 10*3/uL Normal 3.70-11.00 [facility] Comment on above: Order Comment: Speci men Type: BLOOD SPECIMENOrdering Facility: [facility] Address: [address] [place] [address] Performed By: #### 5 8410-2 ####[facility] LABORATORYCLIA [id number] [place] [id number] [place] Magnesium SerPl-mCncon 11-09 Magnesium [Mass/Vol] 1.9 mg/dL Normal 1.7-2.3 [facility] Comment on above: Order Comment: Speci men Type: BLOOD SPECIMENOrdering Facility: [facility] Address: [address] [place] [address] [place] [address] Performed By: #### 2 4321-2, 2777-1, ####[facility] LABORATORYCLIA [id number] [place] [id number] [place] Phosphate SerPl-mCncon 11-09 Phosphate [Mass/Vol] 3.0 mg/dL Normal 2.7-4.8 [facility] Comment on above: Order Comment: Speci men Type: BLOOD SPECIMENOrdering Facility: [facility] Address: [address] [place] [id number] Performed By: #### 2 4321-2, 2777-1, ####[facility] LABORATORYCLIA [id number] [place] [id number] [place] Basic metabolic 2000 panelon 11-09-2023 Anion gap [Moles/Vol] 12 mmol/L Normal 9-18 [facility] Comment on above: Order Comment: Speci men Type: BLOOD SPECIMENOrdering Facility: [facility] Address: [address] [place] [id number] Performed By: #### 2 777-1, , ####[facility] LABORATORYCLIA [id number] [place] [id number] [place] Calcium [Mass/Vol] 9.3 mg/dL Normal 8.5-10.2 [facility] Comment on above: Order Comment: Speci men Type: BLOOD SPECIMENOrdering Facility: [facility] Address: [address] [place] [id number] Performed By: #### 2 777-1, , ####[facility] LABORATORYCLIA [id number] [place] [address] [place] Chloride [Moles/Vol] 100 mmol/L Normal 97-105 [facility] Comment on above: Order Comment: Speci men Type: BLOOD SPECIMENOrdering Facility: [facility] Address: [address] [place] [id number] Performed By: #### 2 777-1, , ####[facility] LABORATORYCLIA [id number] [place] [id number] [place] CO2 [Moles/Vol] 27 mmol/L Normal 22-30 [facility] Comment on above: Order Comment: Speci men Type: BLOOD SPECIMENOrdering Facility: [facility] Address: [address] [place] [address] Performed By: #### 2 777-1, , ####[facility] LABORATORYCLIA [id number] [place] [id number] [place] Creatinine [Mass/Vol] 0.64 mg/dL Normal 0.58-0.96 [facility] Comment on above: Order Comment: Speci men Type: BLOOD SPECIMENOrdering Facility: [facility] Address: [address] [place] [address] Performed By: #### 2 777-1, , ####[facility] LABORATORYCLIA [id number] [place] [address] [place] Creatinine and Glomerular filtration rate.predicted panel (S/P/Bld) 95 mL/min/1.73m??? Normal >=60 [facility] Comment on above: Order Comment: Speci men Type: BLOOD SPECIMENOrdering Facility: [facility] Address: [address] [place] [address] Result Comment: Farhana mated Glomerular Filtration Rate [...] GFR. Performed By: #### 2 777-1, , ####[facility] LABORATORYCLIA [id number] [place] [id number] [place] Glucose [Mass/Vol] 122 mg/dL High 74-99 [facility] Comment on above: Order Comment: Speci men Type: BLOOD SPECIMENOrdering Facility: [facility] Address: [address] [place] [address] Result Comment: The [place] [employer] (ADA) provides guidance for cutoff [...] Standards of Medical Care in Diabetes 2016, [place] [employer]. Diabetes Care. 2016.39(Suppl 1). Performed By: #### 2 777-1, , ####[facility] LABORATORYCLIA [id number] [place] [id number] [place] Potassium [Moles/Vol] 3.9 mmol/L Normal 3.7-5.1 [facility] Comment on above: Order Comment: Speci men Type: BLOOD SPECIMENOrdering Facility: [facility] Address: [address] [place] [address] Performed By: #### 2 777-1, , ####[facility] LABORATORYCLIA [id number] [place] [id number] [place] Sodium [Moles/Vol] 139 mmol/L Normal 136-144 [facility] Comment on above: Order Comment: Speci men Type: BLOOD SPECIMENOrdering Facility: [facility] Address: [address] [phone] Performed By: #### 2 777-1, , ####[facility] LABORATORYCLIA [id number] [place] [id number] [place] Urea nitrogen [Mass/Vol] 8 mg/dL Normal 7-21 [facility] Comment on above: Order Comment: Speci men Type: BLOOD SPECIMENOrdering Facility: [facility] Address: [address] [place] [address] Performed By: #### 2 777-1, 06139-6, 24633-1 ####[facility] LABORATORYCLIA [id number] [place] [id number] [place] CASE MGT INIT ASSESon 2023 CASE MGT INIT ASSES Normal [facility] CBC panel Auto (Bld)on 11-08 Erythrocyte distribution width (RBC) [Ratio] 13.5 % Normal 11.5-15.0 [facility] Comment on above: Order Comment: Speci men Type: BLOOD SPECIMENOrdering Facility: [facility] Address: [address] [place] [address] Performed By: #### 5 8410-2 ####[facility] LABORATORYCLIA [id number] [address] [place] Hematocrit (Bld) [Volume fraction] 32.2 % Low 36.0-46.0 [facility] Comment on above: Order Comment: Speci men Type: BLOOD SPECIMENOrdering Facility: [facility] Address: [address] [place] [address] Performed By: #### 5 8410-2 ####[facility] LABORATORYCLIA [id number] [place] [address] [place] Hemoglobin (Bld) [Mass/Vol] 11.2 g/dL Low 11.5-15.5 [facility] Comment on above: Order Comment: Speci men Type: BLOOD SPECIMENOrdering Facility: [facility] Address: [address] [place] [address] Performed By: #### 5 8410-2 ####[facility] LABORATORYCLIA [id number] [place] [id number] [place] MCH (RBC) [Entitic mass] 30.4 pg Normal 26.0-34.0 [facility] Comment on above: Order Comment: Speci men Type: BLOOD SPECIMENOrdering Facility: [facility] Address: [address] [place] [address] Performed By: #### 5 8410-2 ####[facility] LABORATORYCLIA [id number] [place] [address] [place] MCHC (RBC) [Mass/Vol] 34.8 g/dL Normal 30.5-36.0 [facility] Comment on above: Order Comment: Speci men Type: BLOOD SPECIMENOrdering Facility: [facility] Address: [address] [place] [address] Performed By: #### 5 8410-2 ####[facility] LABORATORYCLIA [id number] [place] [address] [place] MCV (RBC) [Entitic vol] 87.5 fL Normal 80.0-100.0 [facility] Comment on above: Order Comment: Speci men Type: BLOOD SPECIMENOrdering Facility: [facility] Address: [address] [place] [address] Performed By: #### 5 8410-2 ####[facility] LABORATORYCLIA [id number] [place] [address] [place] Nucleated RBC (Bld) [#/Vol] 10*3/uL Normal <0.01 [facility] Comment on above: Order Comment: Speci men Type: BLOOD SPECIMENOrdering Facility: [facility] Address: [address] [place] [address] Performed By: #### 5 8410-2 ####[facility] LABORATORYCLIA [id number] [place] [address] [place] Platelet mean volume (Bld) [Entitic vol] 8.3 fL Low 9.0-12.7 [facility] Comment on above: Order Comment: Speci men Type: BLOOD SPECIMENOrdering Facility: [facility] Address: [address] [place] [address] Performed By: #### 5 8410-2 ####[facility] LABORATORYCLIA [id number] [place] [address] [place] Platelets (Bld) [#/Vol] 270 10*3/uL Normal 150-400 [facility] Comment on above: Order Comment: Speci men Type: BLOOD SPECIMENOrdering Facility: [facility] Address: [address] [place] [address] Performed By: #### 5 8410-2 ####[facility]ORATORYCLIA [id number] [place] [id number] [place] RBC (Bld) [#/Vol] 3.68 10*6/uL Low 3.90-5.20 [facility] Comment on above: Order Comment: Speci men Type: BLOOD SPECIMENOrdering Facility: [facility] Address: [address] [place], [place] [address] [address] Performed By: #### 5 8410-2 ####[facility] LABORATORYCLIA [id number] [place] [id number] [place] WBC (Bld) [#/Vol] 8.53 10*3/uL Normal 3.70-11.00 [facility] Comment on above: Order Comment: Speci men Type: BLOOD SPECIMENOrdering Facility: [facility] Address: [address] [place] [address] Performed By: #### 5 8410-2 ####[facility] LABORATORYCLIA [id number] [place] [id number] [place] CNDSon 11-09-2023 CNDS Normal [facility] Magnesium SerPl-ncon 11-08 Magnesium [Mass/Vol] 1.6 mg/dL Low 1.7-2.3 [facility] Comment on above: Order Comment: Speci men Type: BLOOD SPECIMENOrdering Facility: [facility] Address: [address] [place] [address] Performed By: #### 2 777-1, 87664-5, 85466-9 ####[facility]ORATORYCLIA [id number] [place] [id number] [place] PT EDon 11-09-2023 PT ED Normal [facility] Phosphate SerPl-mCncon 11-08 Phosphate [Mass/Vol] 2.5 mg/dL Low 2.7-4.8 [facility] Comment on above: Order Comment: Speci men Type: BLOOD SPECIMENOrdering Facility: [facility] Address: [address] [place] [address] Performed By: #### 2 777-1, 29926-5, 11438-6 ####[facility] LABORATORYCLIA [id number] [place] [id number] [place] ANES POSTPROC EVALon 024 ANES POSTPROC EVAL Normal [facility] ANES PRE-OPon 11-08-2023 ANES PRE-OP Normal [facility] BRIEF OP NOTon 11-08-2023 BRIEF OP NOT Normal [facility] Basic metabolic 2000 panelon 11-08-2023 Anion gap [Moles/Vol] 21 mmol/L High 9-18 [facility] Comment on above: Order Comment: Speci men Type: BLOOD SPECIMENOrdering Facility: [facility] Address: [address] [place] [address] Performed By: #### H STNT, 97210-9 ####[facility] LABORATORYCLIA [id number] [place] [address] [place] Calcium [Mass/Vol] 8.7 mg/dL Normal 8.5-10.2 [facility] Comment on above: Order Comment: Speci men Type: BLOOD SPECIMENOrdering Facility: [facility] Address: [address] [place] [address] Performed By: #### H STNT, 92353-8 ####[facility] LABORATORYCLIA [id number] [place] [address] [place] Chloride [Moles/Vol] 100 mmol/L Normal 97-105 [facility] Comment on above: Order Comment: Speci men Type: BLOOD SPECIMENOrdering Facility: [facility] Address: [address] [place] [address] Performed By: #### H STNT, 53560-7 ####[facility] LABORATORYCLIA [id number] [place] [id number] [place] CO2 [Moles/Vol] 15 mmol/L Low 22-30 [facility] Comment on above: Order Comment: Speci men Type: BLOOD SPECIMENOrdering Facility: [facility] Address: [address] [place] [address] Performed By: #### H STNT, 99149-1 ####[facility] LABORATORYCLIA [id number] [place] [id number] [place] Creatinine [Mass/Vol] 0.63 mg/dL Normal 0.58-0.96 [facility] Comment on above: Order Comment: Mason simpson Type: BLOOD SPECIMENOrdering Facility: [facility] Address: [address] [place] [address] Performed By: #### H STNT, 97648-1 ####[facility] LABORATORYCLIA [id number] [place] [address] [place] [facility] Creatinine and Glomerular filtration rate.predicted panel (S/P/Bld) 96 mL/min/1.73m??? Normal >=60 [facility] Comment on above: Order Comment: [place] simpson Type: BLOOD SPECIMENOrdering Facility: [facility] Address: [address] [place] [address] Result Comment: Farhana mated Glomerular Filtration Rate [...] actual GFR. Performed By: #### H STNT, 21556-7 ####[facility]ORATORYCLIA [id number] [place] [id number] [place] Glucose [Mass/Vol] 96 mg/dL Normal 74-99 [facility] Comment on above: Order Comment: [place] simpson Type: BLOOD SPECIMENOrdering Facility: [facility] Address: [address] [place] [address] Result Comment: The [place] Diabetes [employer] (ADA) provides guidance for cutoff [...] Standards of Medical Care in Diabetes 2016, [place] [employer]. Diabetes Care. 2016.39(Suppl 1). Performed By: #### H CURT, 15135-4 ####[facility] LABORATORYCLIA [id number] [place] [id number] [place] Potassium [Moles/Vol] 3.7 mmol/L Normal 3.7-5.1 [facility] Comment on above: Order Comment: Speci men Type: BLOOD SPECIMENOrdering Facility: [facility] Address: [address] [place] [address] Performed By: #### H STNT, 27673-6 ####[facility] LABORATORYCLIA [id number] [place] [address] [place] Sodium [Moles/Vol] 136 mmol/L Normal 136-144 [facility] Comment on above: Order Comment: Speci men Type: BLOOD SPECIMENOrdering Facility: [facility] Address: [address] [place] [address] Performed By: #### H CURT, 19350-3 ####[facility] LABORATORYCLIA [id number] [place] [id number] [place] Urea nitrogen [Mass/Vol] 18 mg/dL Normal 7-21 [facility] Comment on above: Order Comment: Speci men Type: BLOOD SPECIMENOrdering Facility: [facility] Address: [address] [place] [address] Performed By: #### H STNT, 91286-5 ####[facility] LABORATORYCLIA [id number] [place] [id number] [place] Anion gap [Moles/Vol] 19 mmol/L High 9-18 [facility] Comment on above: Order Comment: Speci men Type: BLOOD SPECIMENOrdering Facility: [facility] Address: [address] [place] [address] Performed By: #### 2 4321-2, 2777-1, ####[facility] LABORATORYCLIA [id number] [place] [address] [place] Calcium [Mass/Vol] 8.7 mg/dL Normal 8.5-10.2 [facility] Comment on above: Order Comment: Speci men Type: BLOOD SPECIMENOrdering Facility: [facility] Address: [address] [place] [address] Performed By: #### 2 4321-2, 2776-07, ####[facility] LABORATORYCLIA [id number] [place] [id number] [place] Chloride [Moles/Vol] 105 mmol/L Normal 97-105 [facility] Comment on above: Order Comment: Speci men Type: BLOOD SPECIMENOrdering Facility: [facility] Address: [address] [place] [address] Performed By: #### 2 4321-2, 2776-07, ####[facility] LABORATORYCLIA [id number] [place] [id number] [place] CO2 [Moles/Vol] 18 mmol/L Low 22-30 [facility] Comment on above: Order Comment: Speci men Type: BLOOD SPECIMENOrdering Facility: [facility] Address: [address] [place] [address] Performed By: #### 2 4321-2, 2776-07, ####[facility] LABORATORYCLIA [id number] [place] [id number] [place] Creatinine [Mass/Vol] 0.76 mg/dL Normal 0.58-0.96 [facility] Comment on above: Order Comment: Speci men Type: BLOOD SPECIMENOrdering Facility: [facility] Address: [address] [place] [address] Performed By: #### 2 4321-2, 2776-07, ####[facility] LABORATORYCLIA [id number] [place] [address] [place] Creatinine and Glomerular filtration rate.predicted panel (S/P/Bld) 84 mL/min/1.73m??? Normal >=60 [facility] Comment on above: Order Comment: Mason simpson Type: BLOOD SPECIMENOrdering Facility: [facility] Address: [address] [place] [address] Result Comment: Farhana mated Glomerular Filtration Rate [...] GFR. Performed By: #### 2 4321-2, 2777-, ####[facility] LABORATORYCLIA [id number] [place] [address] [place] Glucose [Mass/Vol] 57 mg/dL Low 74-99 [facility] Comment on above: Order Comment: Mason simpson Type: BLOOD SPECIMENOrdering Facility: [facility] Address: [address] [place] [address] Result Comment: The [place] Diabetes Association (ADA) provides guidance for cutoff [...] Standards of Medical Care in Diabetes 2016, [place] [employer]. Diabetes Care. 2016.39(Suppl 1). Performed By: #### 2 4321-2, 2777-, ####[facility] LABORATORYCLIA [id number] [place] [id number] [place] Potassium [Moles/Vol] 4.3 mmol/L Normal 3.7-5.1 [facility] Comment on above: Order Comment: Mason simpson Type: BLOOD SPECIMENOrdering Facility: [facility] Address: [address] [place] [address] Performed By: #### 2 4321-2, 2776-07, ####[facility] LABORATORYCLIA [id number] [place] [id number] [place] Sodium [Moles/Vol] 142 mmol/L Normal 136-144 [facility] Comment on above: Order Comment: Speci men Type: BLOOD SPECIMENOrdering Facility: [facility] Address: [address] [place] [address] Performed By: #### 2 4321-2, 2776-, ####[facility] LABORATORYCLIA [id number] [place] [id number] [place] Urea nitrogen [Mass/Vol] 20 mg/dL Normal 7-21 [facility] Comment on above: Order Comment: Speci men Type: BLOOD SPECIMENOrdering Facility: [facility] Address: [address] [place] [address] Performed By: #### 2 4321-2, 2776-07, ####[facility] LABORATORYCLIA [id number] [place] [id number] [place] CBC W Auto Differential pane l (Bld)on 11-08-2023 Basophils (Bld) [#/Vol] 10*3/uL Normal <0.11 [facility] Comment on above: Order Comment: Speci men Type: BLOOD SPECIMENOrdering Facility: [facility] Address: [address] [place] [address] Performed By: #### 5 7021-8 ####[facility] LABORATORYCLIA [id number] [place] [id number] [place] Basophils/100 WBC (Bld) 0.2 % Normal [facility] Comment on above: Order Comment: Speci men Type: BLOOD SPECIMENOrdering Facility: [facility] Address: [address] [place] [address] Performed By: #### 5 7021-8 ####[facility] LABORATORYCLIA [id number] [address] [place] Differential cell count method Nom (Bld) Auto Normal [facility] Comment on above: Order Comment: Speci men Type: BLOOD SPECIMENOrdering Facility: [facility] Address: [address] [place] [address] Performed By: #### 5 7021-8 ####[facility] LABORATORYCLIA [id number] [place] [address] [place] Eosinophils (Bld) [#/Vol] 10*3/uL Normal <0.46 [facility] Comment on above: Order Comment: Speci men Type: BLOOD SPECIMENOrdering Facility: [facility] Address: [address] [place] [address] Performed By: #### 5 7021-8 ####[facility] LABORATORYCLIA [id number] [address] [place] Eosinophils/100 WBC (Bld) 0.0 % Normal [facility] Comment on above: Order Comment: Speci men Type: BLOOD SPECIMENOrdering Facility: [facility] Address: [address] [place] [address] Performed By: #### 5 7021-8 ####[facility] LABORATORYCLIA [id number] [address] [place] Erythrocyte distribution width (RBC) [Ratio] 13.3 % Normal 11.5-15.0 [facility] Comment on above: Order Comment: Speci men Type: BLOOD SPECIMENOrdering Facility: [facility] Address: [address] [place] [address] Performed By: #### 5 7021-8 ####[facility] LABORATORYCLIA [id number] [place] [address] [place] Hematocrit (Bld) [Volume fraction] 31.6 % Low 36.0-46.0 [facility] Comment on above: Order Comment: Speci men Type: BLOOD SPECIMENOrdering Facility: [facility] Address: [address] [place] [address] Performed By: #### 5 7021-8 ####[facility] LABORATORYCLIA [id number] [place] [address] [place] Hemoglobin (Bld) [Mass/Vol] 10.9 g/dL Low 11.5-15.5 [facility] Comment on above: Order Comment: Speci men Type: BLOOD SPECIMENOrdering Facility: [facility] Address: [address] [place] [address] Performed By: #### 5 7021-8 ####[facility] LABORATORYCLIA [id number] [place] [id number] [place] Immature granulocytes (Bld) [#/Vol] 0.06 10*3/uL Normal <0.10 [facility] Comment on above: Order Comment: Speci men Type: BLOOD SPECIMENOrdering Facility: [facility] Address: [address] [place] [address] Performed By: #### 5 7021-8 ####[facility] LABORATORYCLIA [id number] [address] [place] Immature granulocytes/100 WBC (Bld) 0.6 % Normal [facility] Comment on above: Order Comment: Speci men Type: BLOOD SPECIMENOrdering Facility: [facility] Address: [address] [place] [address] Performed By: #### 5 7021-8 ####C[facility] LABORATORYCLIA [id number] [place] [address] [place] Lymphocytes (Bld) [#/Vol] 0.48 10*3/uL Low 1.00-4.00 [facility] Comment on above: Order Comment: Speci men Type: BLOOD SPECIMENOrdering Facility: [facility] Address: [address] [place] [address] Performed By: #### 5 7021-8 ####[facility] LABORATORYCLIA [id number] [place] [address] [place] Lymphocytes/100 WBC (Bld) 4.5 % Normal [facility] Comment on above: Order Comment: Speci men Type: BLOOD SPECIMENOrdering Facility: [facility] Address: [address] [place] [address] Performed By: #### 5 7021-8 ####C[facility] LABORATORYCLIA [id number] [place] [address] [place] MCH (RBC) [Entitic mass] 30.3 pg Normal 26.0-34.0 [facility] Comment on above: Order Comment: Speci men Type: BLOOD SPECIMENOrdering Facility: [facility] Address: [address] [place] [address] Performed By: #### 5 7021-8 ####C[facility] LABORATORYCLIA [id number] [place] [address] [place] MCHC (RBC) [Mass/Vol] 34.5 g/dL Normal 30.5-36.0 [facility] Comment on above: Order Comment: Speci men Type: BLOOD SPECIMENOrdering Facility: [facility] Address: [address] [place] [address] Performed By: #### 5 7021-8 ####[facility] LABORATORYCLIA [id number] [place] [address] [place] MCV (RBC) [Entitic vol] 87.8 fL Normal 80.0-100.0 [facility] Comment on above: Order Comment: Speci men Type: BLOOD SPECIMENOrdering Facility: [facility] Address: [address] [place] [address] Performed By: #### 5 7021-8 ####[facility] LABORATORYCLIA [id number] [address] [place] Monocytes (Bld) [#/Vol] 0.33 10*3/uL Normal <0.87 [facility] Comment on above: Order Comment: Speci men Type: BLOOD SPECIMENOrdering Facility: [facility] Address: [address] [place] [address] Performed By: #### 5 7021-8 ####[facility] LABORATORYCLIA [id number] [address] [place] Monocytes/100 WBC (Bld) 3.1 % Normal [facility] Comment on above: Order Comment: Speci men Type: BLOOD SPECIMENOrdering Facility: [facility] Address: [address] [place] [address] Performed By: #### 5 7021-8 ####C[facility] LABORATORYCLIA [id number] [place] [id number] [place] Neutrophils (Bld) [#/Vol] 9.79 10*3/uL High 1.45-7.50 [facility] Comment on above: Order Comment: Speci men Type: BLOOD SPECIMENOrdering Facility: [facility] Address: [address] [place] [address] Performed By: #### 5 7021-8 ####[facility] LABORATORYCLIA [id number] [place] [id number] [place] Neutrophils/100 WBC (Bld) 91.6 % Normal [facility] Comment on above: Order Comment: Speci men Type: BLOOD SPECIMENOrdering Facility: [facility] Address: [address] [place] [address] Performed By: #### 5 7021-8 ####[facility] LABORATORYCLIA [id number] [place] [id number] [place] Nucleated RBC (Bld) [#/Vol] 10*3/uL Normal <0.01 [facility] Comment on above: Order Comment: Speci men Type: BLOOD SPECIMENOrdering Facility: [facility] Address: [address] [place] [address] Performed By: #### 5 7021-8 ####[facility] LABORATORYCLIA [id number] [place] [id number] [place] Nucleated RBC/100 WBC (Bld) [Ratio] 0.0 /100 WBC Normal [facility] Comment on above: Order Comment: Speci men Type: BLOOD SPECIMENOrdering Facility: [facility] Address: [address] [place] [address] Performed By: #### 5 7021-8 ####[facility] LABORATORYCLIA [id number] [place] [id number] [place] Platelet mean volume (Bld) [Entitic vol] 8.3 fL Low 9.0-12.7 [facility] Comment on above: Order Comment: Speci men Type: BLOOD SPECIMENOrdering Facility: [facility] Address: [address] [place] [address] Performed By: #### 5 7021-8 ####[facility] LABORATORYCLIA [id number] [place] [id number] [place] Platelets (Bld) [#/Vol] 251 10*3/uL Normal 150-400 [facility] Comment on above: Order Comment: Speci men Type: BLOOD SPECIMENOrdering Facility: [facility] Address: [address] [place] [address] Performed By: #### 5 7021-8 ####[facility] LABORATORYCLIA [id number] [place] [id number] [place] RBC (Bld) [#/Vol] 3.60 10*6/uL Low 3.90-5.20 [facility] Comment on above: Order Comment: Speci men Type: BLOOD SPECIMENOrdering Facility: [facility] Address: [address] [place] [address] Performed By: #### 5 7021-8 ####[facility] LABORATORYCLIA [id number] [place] [id number] [facility] [place] WBC (Bld) [#/Vol] 10.68 10*3/uL Normal 3.70-11.00 [facility] Comment on above: Order Comment: Speci men Type: BLOOD SPECIMENOrdering Facility: [facility] Address: [address] [place] [address] Performed By: #### 5 7021-8 ####[facility] LABORATORYCLIA [id number] [place] [id number] [facility] [place] CBC panel Auto (Bld)on 11-07 Erythrocyte distribution width (RBC) [Ratio] 13.7 % Normal 11.5-15.0 [facility] Comment on above: Order Comment: Speci men Type: BLOOD SPECIMENOrdering Facility: [facility] Address: [address] [place] [address] Performed By: #### 5 8410-2 ####[facility] LABORATORYCLIA [id number] [place] [id number] [facility] [place] Hematocrit (Bld) [Volume fraction] 31.6 % Low 36.0-46.0 [facility] Comment on above: Order Comment: Speci men Type: BLOOD SPECIMENOrdering Facility: [facility] Address: [address] [place] [address] Performed By: #### 5 8410-2 ####C[facility] LABORATORYCLIA [id number] [place] [address] [place] Hemoglobin (Bld) [Mass/Vol] 10.5 g/dL Low 11.5-15.5 [facility] Comment on above: Order Comment: Speci men Type: BLOOD SPECIMENOrdering Facility: [facility] Address: [address] [place] [address] Performed By: #### 5 8410-2 ####[facility] LABORATORYCLIA [id number] [address] [place] MCH (RBC) [Entitic mass] 30.3 pg Normal 26.0-34.0 [facility] Comment on above: Order Comment: Speci men Type: BLOOD SPECIMENOrdering Facility: [facility] Address: [address] [place] [address] Performed By: #### 5 8410-2 ####[facility] LABORATORYCLIA [id number] [address] [place] MCHC (RBC) [Mass/Vol] 33.2 g/dL Normal 30.5-36.0 [facility] Comment on above: Order Comment: Speci men Type: BLOOD SPECIMENOrdering Facility: [facility] Address: [address] [place] [address] Performed By: #### 5 8410-2 ####C[facility] LABORATORYCLIA [id number] [place] [address] [place] MCV (RBC) [Entitic vol] 91.1 fL Normal 80.0-100.0 [facility] Comment on above: Order Comment: Speci men Type: BLOOD SPECIMENOrdering Facility: [facility] Address: [address] [place] [address] Performed By: #### 5 8410-2 ####[facility] LABORATORYCLIA [id number] [place] [id number] [place] Nucleated RBC (Bld) [#/Vol] 10*3/uL Normal <0.01 [facility] Comment on above: Order Comment: Speci men Type: BLOOD SPECIMENOrdering Facility: [facility] Address: [address] [place] [address] Performed By: #### 5 8410-2 ####[facility] LABORATORYCLIA [id number] [place] [address] [place] Platelet mean volume (Bld) [Entitic vol] 8.7 fL Low 9.0-12.7 [facility] Comment on above: Order Comment: Speci men Type: BLOOD SPECIMENOrdering Facility: [facility] Address: [address] [place] [address] Performed By: #### 5 8410-2 ####[facility] LABORATORYCLIA [id number] [place] [id number] [place] Platelets (Bld) [#/Vol] 239 10*3/uL Normal 150-400 [facility] Comment on above: Order Comment: Speci men Type: BLOOD SPECIMENOrdering Facility: [facility] Address: [address] [place] [address] Performed By: #### 5 8410-2 ####[facility] LABORATORYCLIA [id number] [place] [address] [place] RBC (Bld) [#/Vol] 3.47 10*6/uL Low 3.90-5.20 [facility] Comment on above: Order Comment: Speci men Type: BLOOD SPECIMENOrdering Facility: [facility] Address: [address] [place] [address] Performed By: #### 5 8410-2 ####[facility] LABORATORYCLIA [id number] [place] [id number] [place] WBC (Bld) [#/Vol] 4.61 10*3/uL Normal 3.70-11.00 [facility] Comment on above: Order Comment: Speci men Type: BLOOD SPECIMENOrdering Facility: [facility] Address: [address] [place] [address] Performed By: #### 5 8410-2 ####[facility] LABORATORYCLIA [id number] [place] [id number] [place] HIGH SENSITIVITY TROPONIN To n 11-08-2023 Troponin T.cardiac High sensitivity method [Mass/Vol] 11 ng/L Normal <12 [facility] Comment on above: Order Comment: Speci men Type: BLOOD SPECIMENOrdering Facility: [facility] Address: [address] [place] [address] Result Comment: When assessing risk for acute [...] day MACE. Performed By: #### H STNT, 82677-0 ####[facility] LABORATORYCLIA [id number] [place] [id number] [place] HISTORY PHYSICALon HISTORY PHYSICAL Normal [facility] Magnesium SerPl-ncon 11-07 Magnesium [Mass/Vol] 1.9 mg/dL Normal 1.7-2.3 [facility] Comment on above: Order Comment: Speci men Type: BLOOD SPECIMENOrdering Facility: [facility] Address: [address] [place] [address] Performed By: #### 2 4321-2, 2777-1, 81465-3 ####[facility] LABORATORYCLIA [id number] [place] [id number] [place] NURSING PROGon 11-08-2023 NURSING PROG Normal [facility] NURSING PROG Normal [facility] OPERATIVE NOon 11-08-2023 OPERATIVE NO Normal [facility] PT EDon 11-08-2023 PT ED Normal [facility] Phosphate SerPl-mCncon 11-07 Phosphate [Mass/Vol] 4.2 mg/dL Normal 2.7-4.8 [facility] Comment on above: Order Comment: Speci men Type: BLOOD SPECIMENOrdering Facility: [facility] Address: [address] [place] [address] Performed By: #### 2 4321-2, 2777-1, 03045-2 ####[facility] LABORATORYCLIA [id number] [place] [id number] [facility] SURGICAL PATHOLOGYon 024 CASE REPORT Normal [facility] Comment on above: Order Comment: Speci men Type: TISSUE SPECIMENOrdering Facility: [facility] Address: [address] [place] [address] Result Comment: Surg ical Pathology Report Case: [id number] Provider: Laisha Singer MD Collected: 11/08/2023 11:56 AMOrdering Location: [facility] Received: 11/08/2023 01:53 PM Operating RoomPathologist: Oscar Marshall MDSpecimen: Small Bowel, Ileostomy Performed By: #### S ####[facility] LABORATORYCLIA [id number] [address] CLINICAL HISTORY Normal [facility] Comment on above: Order Comment: Speci men Type: TISSUE SPECIMENOrdering Facility: 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 Address: [address] [place] [address] Result Comment: Ileo stomy, excision:- Enterocutaneous tissue with focal nonspecific inflammatory changes and mucosal erosion, consistent with ostomy site.JEL 11/10/2023 Performed By: #### S ####[facility] LABORATORYCLIA [id number] [address] [place] FINAL PERFORMING LAB Normal [facility] Comment on above: Order Comment: Speci men Type: TISSUE SPECIMENOrdering Facility: [facility] Address: [address] [place] [address] Result Comment: Diag nostic interpretation performed at [facility], [address] [place] [address] CLIA# [id number] Director: Dheeraj Suarez M.D. Performed By: #### S ####[facility] LABORATORYCLIA [id number] [address] STATES [facility] GROSS DESCRIPTION Normal [facility] Comment on above: Order Comment: Speci men Type: TISSUE SPECIMENOrdering Facility: [facility] Address: [address] [place] [address] Result Comment: A. S mall Bowel, IleostomyReceived [...] with a wall thickness of 0.6 cm. Pricing Clerk sections are submitted in one cassette.WE November 08, 2023 2:03 PMGross examination performed at [facility], [address] [place] [address] Performed By: #### S ####[facility] LABORATORYCLIA [id number] [place] [id number] [place] ALLIED HEALTHon 11-07-2023 ALLIED HEALTH Normal [facility] Basic metabolic 2000 panelon 11-07-2023 Anion gap [Moles/Vol] 12 mmol/L Normal 9-18 [facility] Comment on above: Order Comment: Speci men Type: BLOOD SPECIMENOrdering Facility: [facility] Address: [address] [place] [address] Performed By: #### 2 4321-2, 33487-5, 2777-1 ####[facility] LABORATORYCLIA [id number] [place] [address] [place] Calcium [Mass/Vol] 9.3 mg/dL Normal 8.5-10.2 [facility] Comment on above: Order Comment: Speci men Type: BLOOD SPECIMENOrdering Facility: [facility] Address: [address] [place] [address] Performed By: #### 2 4321-2, , 2776-07 ####[facility] LABORATORYCLIA [id number] [place] [id number] [place] Chloride [Moles/Vol] 102 mmol/L Normal 97-105 [facility] Comment on above: Order Comment: Speci men Type: BLOOD SPECIMENOrdering Facility: [facility] Address: [address] [place] [address] Performed By: #### 2 4321-2, , 2776-07 ####[facility] LABORATORYCLIA [id number] [place] [id number] [place] CO2 [Moles/Vol] 22 mmol/L Normal 22-30 [facility] Comment on above: Order Comment: Speci men Type: BLOOD SPECIMENOrdering Facility: [facility] Address: [address] [place] [address] Performed By: #### 2 4321-2, , 2776-07 ####[facility] LABORATORYCLIA [id number] [place] [id number] [place] Creatinine [Mass/Vol] 0.83 mg/dL Normal 0.58-0.96 [facility] Comment on above: Order Comment: Speci men Type: BLOOD SPECIMENOrdering Facility: [facility] Address: [address] [place], [place] [address] Performed By: #### 2 4321-2, , 2776-07 ####[facility] LABORATORYCLIA [id number] [place] [id number] [place] Creatinine and Glomerular filtration rate.predicted panel (S/P/Bld) 76 mL/min/1.73m??? Normal >=60 [facility] Comment on above: Order Comment: Speci men Type: BLOOD SPECIMENOrdering Facility: [facility] Address: [address] [place] [address] Result Comment: Farhana mated Glomerular Filtration Rate [...] Performed By: #### 2 4321-2, , 2776-07 ####[facility] LABORATORYCLIA [id number] [place] [id number] [place] Glucose [Mass/Vol] 94 mg/dL Normal 74-99 [facility] Comment on above: Order Comment: Mason simpson Type: BLOOD SPECIMENOrdering Facility: [facility] Address: [address] [place] [address] Result Comment: The [place] [employer] (ADA) provides guidance for cutoff [...] Standards of Medical Care in Diabetes 2016, [place] [employer]. Diabetes Care. 2016.39(Suppl 1). Performed By: #### 2 4321-2, , 2776-07 ####[facility] LABORATORYCLIA [id number] [place] [address] [place] Potassium [Moles/Vol] 4.0 mmol/L Normal 3.7-5.1 [facility] Comment on above: Order Comment: Mason simpson Type: BLOOD SPECIMENOrdering Facility: [facility] Address: [address] [place] [address] Performed By: #### 2 4321-2, , 2776-07 ####[facility] LABORATORYCLIA [id number] [place] [id number] [place] Sodium [Moles/Vol] 136 mmol/L Normal 136-144 [facility] Comment on above: Order Comment: Speci men Type: BLOOD SPECIMENOrdering Facility: [facility] Address: [address] [place] [address] Performed By: #### 2 4321-2, , 2776-07 ####[facility] LABORATORYCLIA [id number] [place] [id number] [place] Urea nitrogen [Mass/Vol] 18 mg/dL Normal 7-21 [facility] Comment on above: Order Comment: Speci men Type: BLOOD SPECIMENOrdering Facility: [facility] Address: [address] [place] [address] Performed By: #### 2 4321-2, , 2776-07 ####[facility] LABORATORYCLIA [id number] [place] [id number] [place] CBC panel Auto (Bld)on 11-06 Erythrocyte distribution width (RBC) [Ratio] 14.2 % Normal 11.5-15.0 [facility] Comment on above: Order Comment: Speci men Type: BLOOD SPECIMENOrdering Facility: [facility] Address: [address] [place] [address] Performed By: #### 5 8410-2 ####[facility] LABORATORYCLIA [id number] [place] [id number] [place] Hematocrit (Bld) [Volume fraction] 35.8 % Low 36.0-46.0 [facility] Comment on above: Order Comment: Speci men Type: BLOOD SPECIMENOrdering Facility: [facility] Address: [address] [place] [address] Performed By: #### 5 8410-2 ####[facility] LABORATORYCLIA [id number] [place] [id number] [place] Hemoglobin (Bld) [Mass/Vol] 11.9 g/dL Normal 11.5-15.5 [facility] Comment on above: Order Comment: Speci men Type: BLOOD SPECIMENOrdering Facility: [facility] Address: [address] [place] [address] Performed By: #### 5 8410-2 ####[facility] LABORATORYCLIA [id number] [address] MCH (RBC) [Entitic mass] 30.4 pg Normal 26.0-34.0 [facility] Comment on above: Order Comment: Speci men Type: BLOOD SPECIMENOrdering Facility: [facility] Address: [address] [place] [address] Performed By: #### 5 8410-2 ####[facility] LABORATORYCLIA [id number] [address] MCHC (RBC) [Mass/Vol] 33.2 g/dL Normal 30.5-36.0 [facility] Comment on above: Order Comment: Speci men Type: BLOOD SPECIMENOrdering Facility: [facility] Address: [address] [place] [address] Performed By: #### 5 8410-2 ####[facility] LABORATORYCLIA [id number] [address] [place] MCV (RBC) [Entitic vol] 91.6 fL Normal 80.0-100.0 [facility] Comment on above: Order Comment: Speci men Type: BLOOD SPECIMENOrdering Facility: [facility] Address: [address] [place] [address] Performed By: #### 5 8410-2 ####[facility] LABORATORYCLIA [id number] [address] [place] Nucleated RBC (Bld) [#/Vol] 10*3/uL Normal <0.01 [facility] Comment on above: Order Comment: Speci men Type: BLOOD SPECIMENOrdering Facility: [facility] Address: [address] [place] [address] Performed By: #### 5 8410-2 ####[facility] LABORATORYCLIA [id number] [place] [address] [place] Platelet mean volume (Bld) [Entitic vol] 8.2 fL Low 9.0-12.7 [facility] Comment on above: Order Comment: Speci men Type: BLOOD SPECIMENOrdering Facility: [facility] Address: [address] [place] [address] Performed By: #### 5 8410-2 ####[facility] LABORATORYCLIA [id number] [place] [id number] [place] Platelets (Bld) [#/Vol] 271 10*3/uL Normal 150-400 [facility] Comment on above: Order Comment: Speci men Type: BLOOD SPECIMENOrdering Facility: [facility] Address: [address] [place] [address] Performed By: #### 5 8410-2 ####[facility] LABORATORYCLIA [id number] [place] [address] [place] RBC (Bld) [#/Vol] 3.91 10*6/uL Normal 3.90-5.20 [facility] Comment on above: Order Comment: Speci men Type: BLOOD SPECIMENOrdering Facility: [facility] Address: [address] [place] [address] Performed By: #### 5 8410-2 ####[facility] LABORATORYCLIA [id number] [place] [address] [place] WBC (Bld) [#/Vol] 5.03 10*3/uL Normal 3.70-11.00 [facility] Comment on above: Order Comment: Speci men Type: BLOOD SPECIMENOrdering Facility: [facility] Address: [address] [place] [address] Performed By: #### 5 8410-2 ####[facility] LABORATORYCLIA [id number] [place] [id number] [place] Magnesium SerPl-mCncon 11-06 Magnesium [Mass/Vol] 2.0 mg/dL Normal 1.7-2.3 [facility] Comment on above: Order Comment: Speci men Type: BLOOD SPECIMENOrdering Facility: [facility] Address: [address] [place] [address] Performed By: #### 2 4321-2, 62003-5, 2776-07 ####[facility] LABORATORYCLIA [id number] [place] [id number] [place] NURSING PROGon 11-07-2023 NURSING PROG Normal [facility] NURSING PROG Normal [facility] Phosphate SerPl-mCncon 11-06 Phosphate [Mass/Vol] 4.6 mg/dL Normal 2.7-4.8 [facility] Comment on above: Order Comment: Speci men Type: BLOOD SPECIMENOrdering Facility: [facility] Address: [address] [place] [address] Performed By: #### 2 4321-2, , 2776-07 ####[facility] LABORATORYCLIA [id number] [place] [id number] [place] XR COLON SINGLE CONTRASTon 0 11-07-2023 XR COLON SINGLE CONTRAST Normal [facility] ALLIED HEALTHon 11-06-2023 ALLIED HEALTH Normal [facility] CBC W Auto Differential pane l (Bld)on 11-06-2023 Basophils (Bld) [#/Vol] 0.03 10*3/uL Normal <0.11 [facility] Center Comment on above: Order Comment: Speci men Type: BLOOD SPECIMENOrdering Facility: [facility] Address: [address] [place] [address] Performed By: #### 5 7021-8 ####[facility] LABORATORYCLIA [id number] [place] [address] [place] Basophils/100 WBC (Bld) 0.4 % Normal [facility] Comment on above: Order Comment: Speci men Type: BLOOD SPECIMENOrdering Facility: [facility] Address: [address] [place] [address] Performed By: #### 5 7021-8 ####[facility] LABORATORYCLIA [id number] [place] [address] [place] Differential cell count method Nom (Bld) Auto Normal [facility] Comment on above: Order Comment: Speci men Type: BLOOD SPECIMENOrdering Facility: [facility] Address: [address] [place] [address] Performed By: #### 5 7021-8 ####[facility] LABORATORYCLIA [id number] [place] [address] [place] Eosinophils (Bld) [#/Vol] 0.11 10*3/uL Normal <0.46 [facility] Comment on above: Order Comment: Speci men Type: BLOOD SPECIMENOrdering Facility: [facility] Address: [address] [place] [address] Performed By: #### 5 7021-8 ####[facility] LABORATORYCLIA [id number] [address] [place] Eosinophils/100 WBC (Bld) 1.4 % Normal [facility] Comment on above: Order Comment: Speci men Type: BLOOD SPECIMENOrdering Facility: [facility] Address: [address] [place] [address] Performed By: #### 5 7021-8 ####[facility] LABORATORYCLIA [id number] [place] [address] [place] Erythrocyte distribution width (RBC) [Ratio] 13.9 % Normal 11.5-15.0 [facility] Comment on above: Order Comment: Speci men Type: BLOOD SPECIMENOrdering Facility: [facility] Address: [address] [place] [address] Performed By: #### 5 7021-8 ####[facility] LABORATORYCLIA [id number] [place] [address] [place] Hematocrit (Bld) [Volume fraction] 39.4 % Normal 36.0-46.0 [facility] Comment on above: Order Comment: Speci men Type: BLOOD SPECIMENOrdering Facility: [facility] Address: [address] [place] [address] Performed By: #### 5 7021-8 ####[facility] LABORATORYCLIA [id number] [place] [address] [place] Hemoglobin (Bld) [Mass/Vol] 13.3 g/dL Normal 11.5-15.5 [facility] Comment on above: Order Comment: Speci men Type: BLOOD SPECIMENOrdering Facility: [facility] Address: [address] [place] [address] Performed By: #### 5 7021-8 ####[facility] LABORATORYCLIA [id number] [place] [id number] [place] Immature granulocytes (Bld) [#/Vol] 10*3/uL Normal <0.10 [facility] Comment on above: Order Comment: Speci men Type: BLOOD SPECIMENOrdering Facility: [facility] Address: [address] [place] [address] Performed By: #### 5 7021-8 ####[facility] LABORATORYCLIA [id number] [address] Immature granulocytes/100 WBC (Bld) 0.3 % Normal [facility] Comment on above: Order Comment: Speci men Type: BLOOD SPECIMENOrdering Facility: [facility] Address: [address] [place] [address] Performed By: #### 5 7021-8 ####[facility] LABORATORYCLIA [id number] [place] [address] [place] Lymphocytes (Bld) [#/Vol] 0.63 10*3/uL Low 1.00-4.00 [facility] Comment on above: Order Comment: Speci men Type: BLOOD SPECIMENOrdering Facility: [facility] Address: [address] [place] [address] Performed By: #### 5 7021-8 ####[facility] LABORATORYCLIA [id number] [place] [id number] [place] Lymphocytes/100 WBC (Bld) 8.1 % Normal [facility] Comment on above: Order Comment: Speci men Type: BLOOD SPECIMENOrdering Facility: [facility] Address: [address] [place] [address] Performed By: #### 5 7021-8 ####[facility] LABORATORYCLIA [id number] [place] [id number] [place] MCH (RBC) [Entitic mass] 30.1 pg Normal 26.0-34.0 [facility] Comment on above: Order Comment: Speci men Type: BLOOD SPECIMENOrdering Facility: [facility] Address: [address] [place] [address] Performed By: #### 5 7021-8 ####[facility] LABORATORYCLIA [id number] [place] [address] [place] MCHC (RBC) [Mass/Vol] 33.8 g/dL Normal 30.5-36.0 [facility] Comment on above: Order Comment: Speci men Type: BLOOD SPECIMENOrdering Facility: [facility] Address: [address] [place] [address] Performed By: #### 5 7021-8 ####[facility] LABORATORYCLIA [id number] [place] [address] [place] MCV (RBC) [Entitic vol] 89.1 fL Normal 80.0-100.0 [facility] Comment on above: Order Comment: Speci men Type: BLOOD SPECIMENOrdering Facility: [facility] Address: [address] [place] [address] Performed By: #### 5 7021-8 ####[facility] LABORATORYCLIA [id number] [address] [place] Monocytes (Bld) [#/Vol] 0.47 10*3/uL Normal <0.87 [facility] Comment on above: Order Comment: Speci men Type: BLOOD SPECIMENOrdering Facility: [facility] Address: [address] [place] [address] Performed By: #### 5 7021-8 ####[facility] LABORATORYCLIA [id number] [address] [place] Monocytes/100 WBC (Bld) 6.1 % Normal [facility] Comment on above: Order Comment: Speci men Type: BLOOD SPECIMENOrdering Facility: [facility] Address: [address] [place] [address] Performed By: #### 5 7021-8 ####[facility] LABORATORYCLIA [id number] [place] [address] [place] Neutrophils (Bld) [#/Vol] 6.48 10*3/uL Normal 1.45-7.50 [facility] Comment on above: Order Comment: Speci men Type: BLOOD SPECIMENOrdering Facility: [facility] Address: [address] [place] [address] Performed By: #### 5 7021-8 ####[facility] LABORATORYCLIA [id number] [place] [address] [place] Neutrophils/100 WBC (Bld) 83.7 % Normal [facility] Comment on above: Order Comment: Speci men Type: BLOOD SPECIMENOrdering Facility: [facility] Address: [address] [place] [address] Performed By: #### 5 7021-8 ####[facility] LABORATORYCLIA [id number] [place] [address] [place] Nucleated RBC (Bld) [#/Vol] 10*3/uL Normal <0.01 [facility] Comment on above: Order Comment: Speci men Type: BLOOD SPECIMENOrdering Facility: [facility] Address: [address] [place] [address] Performed By: #### 5 7021-8 ####[facility] LABORATORYCLIA [id number] [place] [address] [place] Nucleated RBC/100 WBC (Bld) [Ratio] 0.0 /100 WBC Normal [facility] Comment on above: Order Comment: Speci men Type: BLOOD SPECIMENOrdering Facility: [facility] Address: [address] [place] [address] Performed By: #### 5 7021-8 ####[facility] LABORATORYCLIA [id number] [place] [address] [place] Platelet mean volume (Bld) [Entitic vol] 8.5 fL Low 9.0-12.7 [facility] Comment on above: Order Comment: Speci men Type: BLOOD SPECIMENOrdering Facility: [facility] Address: [address] [place] [address] Performed By: #### 5 7021-8 ####[facility] LABORATORYCLIA [id number] [place] [id number] [facility] [place] Platelets (Bld) [#/Vol] 329 10*3/uL Normal 150-400 [facility] Comment on above: Order Comment: Speci men Type: BLOOD SPECIMENOrdering Facility: [facility] Address: [address] [place] [address] Performed By: #### 5 7021-8 ####[facility] LABORATORYCLIA [id number] [place] [id number] [place] RBC (Bld) [#/Vol] 4.42 10*6/uL Normal 3.90-5.20 [facility] Comment on above: Order Comment: Speci men Type: BLOOD SPECIMENOrdering Facility: [facility] Address: [address] [place] [address] Performed By: #### 5 7021-8 ####[facility] LABORATORYCLIA [id number] [place] [id number] [facility] WBC (Bld) [#/Vol] 7.74 10*3/uL Normal 3.70-11.00 [facility] Comment on above: Order Comment: Speci men Type: BLOOD SPECIMENOrdering Facility: [facility] Address: [address] [place] [address] Performed By: #### 5 7021-8 ####[facility] LABORATORYCLIA [id number] [place] [id number] [place] CT ABD/PEL W IVCONon 024 CT ABD/PEL W IVCON Normal [facility] Comprehensive metabolic 2000 panelon 11-06-2023 Albumin [Mass/Vol] 4.7 g/dL Normal 3.9-4.9 [facility] Comment on above: Order Comment: Speci men Type: BLOOD SPECIMENOrdering Facility: [facility] Address: [address] [place] [address] Performed By: #### 2 4323-8, 3040-3, 36243-4 ####[facility] LABORATORYCLIA [id number] [place] [address] [place] ALP [Catalytic activity/Vol] 100 U/L Normal 34-123 [facility] Comment on above: Order Comment: Speci men Type: BLOOD SPECIMENOrdering Facility: [facility] Address: [address] [address] [place] [id number] Performed By: #### 2 4323-8, 0-3, ####[facility] LABORATORYCLIA [id number] [place] [address] [place] ALT [Catalytic activity/Vol] 32 U/L Normal 7-38 [facility] Comment on above: Order Comment: Speci men Type: BLOOD SPECIMENOrdering Facility: [facility] Address: [address] [place] [address] Performed By: #### 2 4323-8, 3, ####[facility] LABORATORYCLIA [id number] [place] [id number] [place] Anion gap [Moles/Vol] 16 mmol/L Normal 9-18 [facility] Comment on above: Order Comment: Speci men Type: BLOOD SPECIMENOrdering Facility: [facility] Address: [address] [place] [address] Performed By: #### 2 4323-8, 3, ####[facility] LABORATORYCLIA [id number] [place] [id number] [place] AST [Catalytic activity/Vol] 39 U/L High 13-35 [facility] Comment on above: Order Comment: Speci men Type: BLOOD SPECIMENOrdering Facility: [facility] Address: [address] [place] [id number] Performed By: #### 2 4323-8, 03, ####[facility] LABORATORYCLIA [id number] [place] [id number] [place] Bilirubin [Mass/Vol] 0.8 mg/dL Normal 0.2-1.3 [facility] Comment on above: Order Comment: Speci men Type: BLOOD SPECIMENOrdering Facility: [facility] Address: [address] [place] [address] Performed By: #### 2 4323-8, 3040-3, ####[facility] LABORATORYCLIA [id number] [place] [address] [place] Calcium [Mass/Vol] 10.0 mg/dL Normal 8.5-10.2 [facility] Comment on above: Order Comment: Speci men Type: BLOOD SPECIMENOrdering Facility: [facility] Address: [address] [place] [address] Performed By: #### 2 4323-8, 3040-3, ####[facility] LABORATORYCLIA [id number] [place] [id number] [place] Chloride [Moles/Vol] 99 mmol/L Normal 97-105 [facility] Comment on above: Order Comment: Speci men Type: BLOOD SPECIMENOrdering Facility: [facility] Address: [address] [place] [address] Performed By: #### 2 4323-8, 3, ####[facility] LABORATORYCLIA [id number] [place] [id number] [place] CO2 [Moles/Vol] 20 mmol/L Low 22-30 [facility] Comment on above: Order Comment: Speci men Type: BLOOD SPECIMENOrdering Facility: [facility] Address: [address] [place] [address] Performed By: #### 2 4323-8, 03, ####[facility] LABORATORYCLIA [id number] [place] [id number] [place] Creatinine [Mass/Vol] 0.84 mg/dL Normal 0.58-0.96 [facility] Comment on above: Order Comment: Speci men Type: BLOOD SPECIMENOrdering Facility: [facility] Address: [facility] [address] [place] [address] Performed By: #### 2 4323-8, 3040-3, ####[facility] LABORATORYCLIA [id number] [place] [id number] [place] Creatinine and Glomerular filtration rate.predicted panel (S/P/Bld) 75 mL/min/1.73m??? Normal >=60 [facility] Comment on above: Order Comment: Mason simpson Type: BLOOD SPECIMENOrdering Facility: [facility] Address: [address] [place] [address] Result Comment: Farhana mated Glomerular Filtration Rate [...] GFR. Performed By: #### 2 4323-8, 3040-3, ####[facility] LABORATORYCLIA [id number] [place] [address] [place] Glucose [Mass/Vol] 107 mg/dL High 74-99 [facility] Comment on above: Order Comment: Mason simpson Type: BLOOD SPECIMENOrdering Facility: [facility] Address: [address] [place] [address] Result Comment: The [place] [employer] (ADA) provides guidance for cutoff [...] Standards of Medical Care in Diabetes 2016, [place] [employer]. Diabetes Care. 2016.39(Suppl 1). Performed By: #### 2 4323-8, 3040-3, ####[facility] LABORATORYCLIA [id number] [place] [id number] [place] Potassium [Moles/Vol] 4.0 mmol/L Normal 3.7-5.1 [facility] Comment on above: Order Comment: Speci men Type: BLOOD SPECIMENOrdering Facility: [facility] Address: [address] [place], [place] [address] Performed By: #### 2 4323-8, 0-3, ####[facility] LABORATORYCLIA [id number] [place] [address] [place] Protein [Mass/Vol] 7.6 g/dL Normal 6.3-8.0 [facility] Comment on above: Order Comment: Speci men Type: BLOOD SPECIMENOrdering Facility: [facility] Address: [address] [place] [address] Performed By: #### 2 4323-8, 3039-3, ####[facility] LABORATORYCLIA [id number] [place] [id number] [place] Sodium [Moles/Vol] 135 mmol/L Low 136-144 [facility] Comment on above: Order Comment: Speci men Type: BLOOD SPECIMENOrdering Facility: [facility] Address: [address] [place] [address] Performed By: #### 2 4323-8, 3, ####[facility] LABORATORYCLIA [id number] [place] [id number] [place] Urea nitrogen [Mass/Vol] 18 mg/dL Normal 7-21 [facility] Comment on above: Order Comment: Speci men Type: BLOOD SPECIMENOrdering Facility: [facility] Address: [address] [place] [address] Performed By: #### 2 4323-8, 3, ####[facility] LABORATORYCLIA [id number] [place] [id number] [place] ED PROV NOTEon 11-06-2023 ED PROV NOTE Normal [facility] ED Triage Noteon 11-06-2023 ED Triage Note Normal [facility] HISTORY PHYSICALon HISTORY PHYSICAL Normal [facility] Lipase SerPl-cCncon 11-06-19 24 Lipase [Catalytic activity/Vol] 9 U/L Low 16-61 [facility] Comment on above: Order Comment: Mason simpson Type: BLOOD SPECIMENOrdering Facility: [facility] Address: [address] [place] [address] Performed By: #### 2 4323-8, 0-3, ####[facility] LABORATORYCLIA [id number] [place] [id number] [place] Magnesium SerPl-mCncon 11-05 Magnesium [Mass/Vol] 1.4 mg/dL Low 1.7-2.3 [facility] Comment on above: Order Comment: Mason simpson Type: BLOOD SPECIMENOrdering Facility: [facility] Address: [address] [place] [address] Performed By: #### 2 4323-8, 0-3, ####[facility] LABORATORYCLIA [id number] [place] [id number] [place] NURSING PROGon 11-06-2023 NURSING PROG Normal [facility] PT panel Coag (PPP)on 2023 INR Coag (PPP) [Relative time] 0.9 {INR} Normal 0.9-1.3 [facility] Comment on above: Order Comment: Mason simpson Type: BLOOD SPECIMENOrdering Facility: [facility] Address: [address] [place] [address] Result Comment: Ria min K Antagonist (VKA) Therapeutic Range: INR 2 to 3 (Target INR of 2.5)Note: For patients treated with VKA drugs, such as warfarin, the [place] [employer] 2012 Guideline recommends [...] of 3).Angel GH, et al. Chest 2012, 141:7S-47SNishimura RA, et al. [facility] 2017, 70: 252-289 Performed By: #### 3 4528-0, 14502-1 ####[facility] LABORATORYCLIA [id number] [place] [id number] [facility] [place] PT Coag (PPP) [Time] 10.6 s Normal 9.7-13.0 [facility] Comment on above: Order Comment: Speci men Type: BLOOD SPECIMENOrdering Facility: [facility] Address: [address] [place] [address] Performed By: #### 3 4528-0, 56118-9 ####[facility] LABORATORYCLIA [id number] [address] TYPE + SCREENon 11-06-2023 ABO O [facility] Comment on above: Order Comment: Speci men Type: BLOOD SPECIMENOrdering Facility: [facility] Address: [address] [place] [address] Performed By: #### T SCR ####[facility] BLOOD BANKCLIA [id number] [address] [place] HISTORICAL AB SCR STATUS Negative [facility] Comment on above: Order Comment: Speci men Type: BLOOD SPECIMENOrdering Facility: [facility] Address: [address] [place] [address] Performed By: #### T SCR ####[facility] BLOOD BANKCLIA [id number] [address] [place] Rh Nom (Bld) Negative [facility] Comment on above: Order Comment: Speci men Type: BLOOD SPECIMENOrdering Facility: [facility] Address: [address] [place] [address] Performed By: #### T SCR ####[facility] BLOOD BANKCLIA [id number] [address] TYPE AND SCREEN EXPIRATION 11/09/2023 23:59 Normal [facility] Comment on above: Order Comment: Speci men Type: BLOOD SPECIMENOrdering Facility: [facility] Address: [address] [place] [address] Performed By: #### T SCR ####[facility] BLOOD BANKIA [id number] [address] [place] [facility] Urinalysis complete panel (U )on 11-06-2023 Bilirubin Ql (U) Negative Normal Negative [facility] Comment on above: Order Comment: Speci men Type: URINE SPECIMENOrdering Facility: [facility] Address: [address] [place] [address] Performed By: #### 2 4356-8 ####[facility] LABORATORYIA [id number] [address] [place] Clarity (Unsp spec) Clear Normal Clear [facility] Comment on above: Order Comment: Speci men Type: URINE SPECIMENOrdering Facility: [facility] Address: [address] [place] [address] Performed By: #### 2 4356-8 ####[facility] LABORATORYIA [id number] [address] [place] Color (U) Light Yellow Normal Yellow [facility] Comment on above: Order Comment: Speci men Type: URINE SPECIMENOrdering Facility: [facility] Address: [address] [place] [address] Performed By: #### 2 4356-8 ####[facility] LABORATORYIA [id number] [address] Epithelial cells LM.HPF (Urine sed) [#/Area] Few Normal [facility] Comment on above: Order Comment: Speci men Type: URINE SPECIMENOrdering Facility: [facility] Address: [address] [place] [address] Performed By: #### 2 4356-8 ####[facility] LABORATORYCLIA [id number] [address] [place] Glucose Test strip (U) [Mass/Vol] Negative Normal Trace, Negative [facility] Comment on above: Order Comment: Speci men Type: URINE SPECIMENOrdering Facility: [facility] Address: [address] [place] [address] Performed By: #### 2 4356-8 ####[facility] LABORATORYCLIA [id number] [place] [address] [place] Hemoglobin Ql (U) 1+ Abnormal Negative, Trace [facility] Comment on above: Order Comment: Speci men Type: URINE SPECIMENOrdering Facility: [facility] Address: [address] [place] [address] Performed By: #### 2 4356-8 ####[facility] LABORATORYCLIA [id number] [place] [address] [place] Ketones Ql (U) Negative Normal Negative, Trace [facility] Comment on above: Order Comment: Speci men Type: URINE SPECIMENOrdering Facility: [facility] Address: [address] [place] [address] Performed By: #### 2 4356-8 ####[facility] LABORATORYCLIA [id number] [address] [place] Leukocyte esterase Test strip Ql (U) Negative Normal Negative, 25 Melody/uL [facility] Comment on above: Order Comment: Speci men Type: URINE SPECIMENOrdering Facility: [facility] Address: [address] [place] [address] Performed By: #### 2 4356-8 ####[facility] LABORATORYCLIA [id number] [address] [place] Nitrite Ql (U) Negative Normal Negative [facility] Comment on above: Order Comment: Speci men Type: URINE SPECIMENOrdering Facility: [facility] Address: [address] [place] [address] Performed By: #### 2 4356-8 ####[facility] LABORATORYCLIA [id number] [place] [address] [place] pH (U) 6.5 [pH] Normal 5.0-8.0 [facility] Comment on above: Order Comment: Speci men Type: URINE SPECIMENOrdering Facility: [facility] Address: [address] [place] [address] Performed By: #### 2 4356-8 ####[facility] LABORATORYCLIA [id number] [address] Protein (U) [Mass/Vol] Trace Normal Trace , Negative [facility] Comment on above: Order Comment: Speci men Type: URINE SPECIMENOrdering Facility: [facility] Address: [address] [place] [address] Performed By: #### 2 4356-8 ####[facility] LABORATORYCLIA [id number] [place] [address] [place] RBC LM.HPF (Urine sed) [#/Area] 0-3 /HPF Normal 0-3 /HPF [facility] Comment on above: Order Comment: Speci men Type: URINE SPECIMENOrdering Facility: [facility] Address: [address] [place] [address] Performed By: #### 2 4356-8 ####[facility] LABORATORYCLIA [id number] [address] Specific gravity (U) [Rel density] >1.050 High 1.005-1.03 0 [facility] Comment on above: Order Comment: Speci men Type: URINE SPECIMENOrdering Facility: [facility] Address: [address] [place] [address] Performed By: #### 2 4356-8 ####[facility] LABORATORYCLIA [id number] [address] Urobilinogen Ql (U) Normal Normal Normal [facility] Comment on above: Order Comment: Speci men Type: URINE SPECIMENOrdering Facility: [facility] Address: [address] [place] [address] Performed By: #### 2 4356-8 ####[facility] LABORATORYCLIA [id number] [place] [address] [place] WBC LM.HPF (Urine sed) [#/Area] 0-5 /HPF Normal 0-5 /HPF [facility] Comment on above: Order Comment: Speci men Type: URINE SPECIMENOrdering Facility: [facility] Address: [address] [place] [address] Performed By: #### 2 [id number] ####[facility] LABORATORYCLIA [id number] [place] [id number] [place] aPTT PPPon 11-06-2023 aPTT Coag (PPP) [Time] 25.4 s Normal 23.0-32.4 [facility] Comment on above: Order Comment: Speci men Type: BLOOD SPECIMENOrdering Facility: [facility] Address: [address] [place] [address] Performed By: #### 3 [id number], [id number] ####[facility]ORATORYCLIA [id number] [place] [id number] [place] Basophils Auto (Bld) [#/Vol] Ordered By: Ion Eckert on 10-28-2023 Basophils (Bld) [#/Vol] 0.0 10*3/uL 0.0-0.2 [facility] Basophils/100 WBC Auto (Bld) Ordered By: Ion Eckert on 10-28-2023 Basophils/100 WBC (Bld) 0.6 % . [facility] Carbon dioxide, total [Moles /volume] in Serum or PlasmaOrdered By: Ion Eckert on 10-28-2023 CO2 [Moles/Vol] 31.8 mmol/L 21.0-31.[address] [facility] Chloride [Moles/volume] in S jeevan or PlasmaOrdered By: Ion Eckert on 10-28-2023 Chloride [Moles/Vol] 104 mmol/L 98-107 [facility] Creatinine [Mass/volume] in Serum or PlasmaOrdered By: Ion Eckert on 10-28-2023 Creatinine [Mass/Vol] 0.60 mg/dL 0.60-1.20 [facility] Eosinophils Auto (Bld) [#/Vo l]Ordered By: Ion Eckert on 10-28-2023 Eosinophils (Bld) [#/Vol] 0.4 10*3/uL 0.0-0.45 [facility] Eosinophils/100 WBC Auto (Bl d)Ordered By: Ion Eckert on 10-28-2023 Eosinophils/100 WBC (Bld) 7.1 % . [facility] Erythrocyte distribution wid th Auto (RBC) [Ratio]Ordered By: Ion Eckert on 10-28-2023 Erythrocyte distribution width (RBC) [Ratio] 14.9 % 11.9-15.3 [facility] Hematocrit Auto (Bld) [Volum e fraction]Ordered By: Ion Eckert on 10-28-2023 Hematocrit (Bld) [Volume fraction] 31.9 % 34.0-46.4 [facility] Hemoglobin [Mass/volume] in BloodOrdered By: Ion Eckert on 10-28-2023 Hemoglobin (Bld) [Mass/Vol] 10.6 g/dL 11.8-15.4 [facility] Leukocytes [#/volume] correc french for nucleated erythrocytes in Blood by Automated counOrdered By: Ion Eckert on 10-28-2023 WBC corrected for nucl RBC Auto (Bld) [#/Vol] 5.6 10*3/uL 3.8-11.6 [facility] Lymphocytes Auto (Bld) [#/Vo l]Ordered By: Ion Eckert on 10-28-2023 Lymphocytes (Bld) [#/Vol] 0.8 10*3/uL 1.00-4.8 [facility] Lymphocytes/100 WBC Auto (Bl d)Ordered By: Ion Eckert on 10-28-2023 Lymphocytes/100 WBC (Bld) 13.6 % . [facility] MCH Auto (RBC) [Entitic mass ]Ordered By: Ion Eckert on 10-28-2023 MCH (RBC) [Entitic mass] 29.7 pg 24.7-34.3 [facility] MCHC Auto (RBC) [Mass/Vol]Or dered By: Ion Eckert on 10-28-2023 MCHC (RBC) [Mass/Vol] 33.2 g/dL 32.0-35.0 [facility] MCV Auto (RBC) [Entitic vol] Ordered By: Ion Eckert on 10-28-2023 MCV (RBC) [Entitic vol] 89.6 fL 80-100 [facility] Monocytes Auto (Bld) [#/Vol] Ordered By: Ion Eckert on 10-28-2023 Monocytes (Bld) [#/Vol] 0.7 10*3/uL 0.0-0.8 [facility] Monocytes/100 WBC Auto (Bld) Ordered By: Ion Eckert on 10-28-2023 Monocytes/100 WBC (Bld) 11.9 % . [facility] Neutrophils Auto (Bld) [#/Vo l]Ordered By: Ion Eckert on 10-28-2023 Neutrophils (Bld) [#/Vol] 3.8 10*3/uL 1.8-7.7 [facility] Neutrophils/100 WBC Auto (Bl d)Ordered By: Ion Eckert on 10-28-2023 Neutrophils/100 WBC (Bld) 66.8 % . [facility] No Panel InformationOrdered By: Ion Eckert on 10-28-2023 Estimated GFR (CKD-EPI) > 60.0 mL/Min [facility] Creatinine Clearance (Chem 61.83 [facility] Nucleated erythrocytes [Pres ence] in Blood by Automated countOrdered By: Ion Eckert on 10-28-2023 Nucleated RBC Auto Ql (Bld) 0.1 /100{WBC} 0-0.5 [facility] Platelet mean volume Auto (B ld) [Entitic vol]Ordered By: Ion Eckert on 10-28-2023 Platelet mean volume (Bld) [Entitic vol] 6.4 fL 6.3-10.7 [facility] Platelets Auto (Bld) [#/Vol] Ordered By: Ion Eckert on 10-28-2023 Platelets (Bld) [#/Vol] 294 10*3/uL 150-450 [facility] Potassium [Moles/volume] in Serum or PlasmaOrdered By: Ion Eckert on 10-28-2023 Potassium [Moles/Vol] 3.9 mmol/L 3.5-5.1 [facility] RBC Auto (Bld) [#/Vol]Ordere d By: Ion Eckert on 10-28-2023 RBC (Bld) [#/Vol] 3.56 10*6/uL 3.60-5.00 [facility] Serum or plasma anion gap de terminationOrdered By: Ion Eckert on 10-28-2023 Anion gap [Moles/Vol] 9.1 mmol/L 6.0-15.0 [facility] Sodium [Moles/volume] in Ser um or PlasmaOrdered By: Ion Eckert on 10-28-2023 Sodium [Moles/Vol] 141 mmol/L 136-145 [facility] Urea nitrogen [Mass/volume] in Serum or PlasmaOrdered By: Ion Eckert on 10-28-2023 Urea nitrogen [Mass/Vol] 11 mg/dL 7-25 [facility] WBC Auto (Bld) [#/Vol]Ordere d By: Ion Eckert on 10-28-2023 WBC (Bld) [#/Vol] 5.6 10*3/uL 3.8-11.6 [facility] Glucose Glucometer (BldC) [M ass/Vol]Ordered By: Jm Trujillo on 10-27-2023 Glucose [Mass/Vol] 71 mg/dL [facility] Comment on above: Random Glucose Refer ence Range is dependent on time and content of last meal. Glucose of more than 200 mg/dL in a nonstressed, ambulatory subject supports the diagnosis of Diabetes Mellitus. Calcium [Mass/volume] in Ser um or PlasmaOrdered By: Ethel Saucedo on 10-26-2023 Calcium [Mass/Vol] 9.3 mg/dL 8.6-10.3 [facility] Glucose [Mass/volume] in Ser um or PlasmaOrdered By: Ethel Saucedo on 10-26-2023 Glucose [Mass/Vol] 105 mg/dL 70-100 [facility] Comment on above: ADA recommended refe rence rangeRandom Glucose Reference Range is dependent on time and content of last meal. Glucose of more than 200 mg/dL in a nonstressed, ambulatory subject supports the diagnosis of Diabetes Mellitus. Magnesium [Mass/volume] in S jeevan or PlasmaOrdered By: Ethel Saucedo on 10-26-2023 Magnesium [Mass/Vol] 2.0 mg/dL 1.9-2.7 [facility] Activated partial thrombopla stin time (aPTT) in platelet poor plasma by coagulation aOrdered By: Mary Al on 10-25-2023 aPTT Coag (PPP) [Time] 25.0 s 25.1-36.5 [facility] Comment on above: A hematocrit value g reater than 55% may lead to inaccurate results in coagulation testing. Patients having hematocrit values >55% require a special collection tube for coagulation studies. Please contact the laboratory at [phone] for redraw instructions. Alanine aminotransferase [En zymatic activity/volume] in Serum or PlasmaOrdered By: Mary Al on 10-25-2023 ALT [Catalytic activity/Vol] 36 U/L 7-52 [facility] Albumin [Mass/volume] in Ser um or Plasma by Bromocresol green (BCG) dye binding methoOrdered By: Mary Al on 10-25-2023 Albumin BCG dye [Mass/Vol] 4.4 g/dL 3.5-5.7 [facility] Alkaline phosphatase [Enzyma tic activity/volume] in Serum or PlasmaOrdered By: Mary Al on 10-25-2023 ALP [Catalytic activity/Vol] 79 U/L 34-104 [facility] Aspartate aminotransferase [ Enzymatic activity/volume] in Serum or PlasmaOrdered By: Mary Al on 10-25-2023 AST [Catalytic activity/Vol] 52 U/L 13-39 [facility] Automated erythrocytes count in urine sediment (number/area)Ordered By: Mary Al on 10-25-2023 RBC Auto (Urine sed) [#/Area] 0-1 [HPF] 0-4 [facility] Automated leukocytes count i n urine sediment (number/area)Ordered By: Mary Al on 10-25-2023 WBC Auto (Urine sed) [#/Area] 10-19 [HPF] 0-4 [facility] Basophils Auto (Bld) [#/Vol] Ordered By: Mary Al on 10-25-2023 Basophils (Bld) [#/Vol] 0.1 10*3/uL 0.0-0.2 [facility] Basophils/100 WBC Auto (Bld) Ordered By: Mary Al on 10-25-2023 Basophils/100 WBC (Bld) 0.7 % . [facility] Bilirubin Test strip Ql (U)O rdered By: Mary Al on 10-25-2023 Bilirubin Ql (U) Negative Negative [facility] Bilirubin.direct [Mass/volum e] in Serum or PlasmaOrdered By: Mary Al on 10-25-2023 Bilirubin.direct [Mass/Vol] 0.20 mg/dL 0.03-0.18 [facility] Bilirubin.total [Mass/volume ] in Serum or PlasmaOrdered By: Mary Al on 10-25-2023 Bilirubin [Mass/Vol] 1.0 mg/dL 0.3-1.0 [facility] Calcium [Mass/volume] in Ser um or PlasmaOrdered By: Mary Al on 10-25-2023 Calcium [Mass/Vol] 9.9 mg/dL 8.6-10.3 [facility] Carbon dioxide, total [Moles /volume] in Serum or PlasmaOrdered By: Mary Al on 10-25-2023 CO2 [Moles/Vol] 21.9 mmol/L 21.0-31.[address] [facility] Chloride [Moles/volume] in S jeevan or PlasmaOrdered By: Mary Al on 10-25-2023 Chloride [Moles/Vol] 100 mmol/L 98-107 [facility] Color Auto (U)Ordered By: Nunu Al on 10-25-2023 Color (U) Yellow Yellow [facility] Creatine kinase [Enzymatic a ctivity/volume] in Serum or PlasmaOrdered By: Mary Al on 10-25-2023 CK [Catalytic activity/Vol] 128 U/L 30-223 [facility] Creatinine [Mass/volume] in Serum or PlasmaOrdered By: Mary lA on 10-25-2023 Creatinine [Mass/Vol] 0.67 mg/dL 0.60-1.20 [facility] Eosinophils Auto (Bld) [#/Vo l]Ordered By: Mary Al on 10-25-2023 Eosinophils (Bld) [#/Vol] 0.3 10*3/uL 0.0-0.45 [facility] Eosinophils/100 WBC Auto (Bl d)Ordered By: Mary Al on 10-25-2023 Eosinophils/100 WBC (Bld) 2.2 % . [facility] Erythrocyte distribution wid th Auto (RBC) [Ratio]Ordered By: Mary Al on 10-25-2023 Erythrocyte distribution width (RBC) [Ratio] 15.5 % 11.9-15.3 [facility] Fibrin D-dimer [Presence] in Platelet poor plasma by Latex agglutinationOrdered By: Mary Al on 10-25-2023 Fibrin D-dimer LA Ql (PPP) 312 ng/mL 0-243 [facility] Comment on above: The reference range [...] coagulation studies. Please contact the laboratory at [phone] for redraw instructions. Globulin Calc (S) [Mass/Vol] Ordered By: Mary Al on 10-25-2023 Globulin (S) [Mass/Vol] 2.9 g/dL [facility] Glucose [Mass/volume] in Ser um or PlasmaOrdered By: Mary Al on 10-25-2023 Glucose [Mass/Vol] 132 mg/dL 70-100 [facility] Comment on above: ADA recommended refe rence rangeRandom Glucose Reference Range is dependent on time and content of last meal. Glucose of more than 200 mg/dL in a nonstressed, ambulatory subject supports the diagnosis of Diabetes Mellitus. Hematocrit Auto (Bld) [Volum e fraction]Ordered By: Mary Al on 10-25-2023 Hematocrit (Bld) [Volume fraction] 38.4 % 34.0-46.4 [facility] Hemoglobin [Mass/volume] in BloodOrdered By: Mary Al on 10-25-2023 Hemoglobin (Bld) [Mass/Vol] 12.9 g/dL 11.8-15.4 [facility] INR in Platelet poor plasma by Coagulation assayOrdered By: Mary Al on 10-25-2023 INR Coag (PPP) [Relative time] 1.0 {INR} [facility] Comment on above: INR Therapeutic Rang [...] on 10-25-2023 Ketones (U) [Mass/Vol] Negative Negative [facility] - UrinalysisOrder ed By: Mary Al on 10-25-2023 Hyaline casts LM Ql (Urine sed) None seen [LPF] 0-8 [facility] Lactate [Moles/volume] in Se rum or PlasmaOrdered By: Mary Al on 10-25-2023 Lactate [Moles/Vol] 1.3 mmol/L 0.5-2.2 [facility] Leukocytes [#/volume] correc french for nucleated erythrocytes in Blood by Automated counOrdered By: Mary Al on 10-25-2023 WBC corrected for nucl RBC Auto (Bld) [#/Vol] 14.4 10*3/uL 3.8-11.6 [facility] Lymphocytes Auto (Bld) [#/Vo l]Ordered By: Mary Al on 10-25-2023 Lymphocytes (Bld) [#/Vol] 2.2 10*3/uL 1.00-4.8 [facility] Lymphocytes/100 WBC Auto (Bl d)Ordered By: Mary lA on 10-25-2023 Lymphocytes/100 WBC (Bld) 14.9 % . [facility] MCH Auto (RBC) [Entitic mass ]Ordered By: Mary Al on 10-25-2023 MCH (RBC) [Entitic mass] 29.3 pg 24.7-34.3 [facility] MCHC Auto (RBC) [Mass/Vol]Or dered By: Mary Al on 10-25-2023 MCHC (RBC) [Mass/Vol] 33.5 g/dL 32.0-35.0 [facility] MCV Auto (RBC) [Entitic vol] Ordered By: Mary Al on 10-25-2023 MCV (RBC) [Entitic vol] 87.5 fL 80-100 [facility] Monocyte distribution width [Entitic volume] in Blood by AutomatedOrdered By: Mary Al on 10-25-2023 Monocyte distribution width Auto (Bld) [Entitic vol] 18.93 % 0.00-20.00 [facility] Monocytes Auto (Bld) [#/Vol] Ordered By: Mary Al on 10-25-2023 Monocytes (Bld) [#/Vol] 1.0 10*3/uL 0.0-0.8 [facility] Monocytes/100 WBC Auto (Bld) Ordered By: Mary Al on 10-25-2023 Monocytes/100 WBC (Bld) 6.7 % . [facility] Natriuretic peptide B [Mass/ Vol]Ordered By: Mary Al on 10-25-2023 Natriuretic peptide B (Bld) [Mass/Vol] 42.0 pg/mL 5-100 [facility] Neutrophils Auto (Bld) [#/Vo l]Ordered By: Mary Al on 10-25-2023 Neutrophils (Bld) [#/Vol] 10.9 10*3/uL 1.8-7.7 [facility] Neutrophils/100 WBC Auto (Bl d)Ordered By: Mary Al on 10-25-2023 Neutrophils/100 WBC (Bld) 75.5 % . [facility] Nitrite Test strip Ql (U)Ord ered By: Mary Al on 10-25-2023 Nitrite Ql (U) Negative Negative [facility] No Panel InformationOrdered By: Mary Al on 10-25-2023 Estimated GFR (CKD-EPI) > 60.0 mL/Min [facility] Creatinine Clearance (Chem 61.55 [facility] Nucleated erythrocytes [Pres ence] in Blood by Automated countOrdered By: Mary Al on 10-25-2023 Nucleated RBC Auto Ql (Bld) 0.0 /100{WBC} 0-0.5 [facility] Platelet mean volume Auto (B ld) [Entitic vol]Ordered By: Mary Al on 10-25-2023 Platelet mean volume (Bld) [Entitic vol] 6.4 fL 6.3-10.7 [facility] Platelets Auto (Bld) [#/Vol] Ordered By: Mary Al on 10-25-2023 Platelets (Bld) [#/Vol] 397 10*3/uL 150-450 [facility] Potassium [Moles/volume] in Serum or PlasmaOrdered By: Mary Al on 10-25-2023 Potassium [Moles/Vol] 4.0 mmol/L 3.5-5.1 [facility] Protein Auto test strip (U) [Mass/Vol]Ordered By: Mary Al on 10-25-2023 Protein (U) [Mass/Vol] Negative Negative [facility] Protein [Mass/volume] in Ser um or PlasmaOrdered By: Mary Al on 10-25-2023 Protein [Mass/Vol] 7.3 g/dL 6.4-8.9 [facility] Prothrombin time (PT)Ordered By: Mary Al on 10-25-2023 PT Coag (PPP) [Time] 11.4 s 9.0-12.9 [facility] Comment on above: A hematocrit value g reater than 55% may lead to inaccurate results in coagulation testing. Patients having hematocrit values >55% require a special collection tube for coagulation studies. Please contact the laboratory at [phone] for redraw instructions. RBC Auto (Bld) [#/Vol]Ordere d By: Mary Al on 10-25-2023 RBC (Bld) [#/Vol] 4.39 10*6/uL 3.60-5.00 [facility] Serum or plasma albumin/glob ulin mass ratioOrdered By: Mary Al on 10-25-2023 Albumin/Globulin [Mass ratio] 1.5 {ratio} [facility] Serum or plasma anion gap de terminationOrdered By: Mary Al on 10-25-2023 Anion gap [Moles/Vol] 15.1 mmol/L 6.0-15.0 [facility] Serum or plasma non-glucuron idated bilirubin measurement (mass/volume)Ordered By: Mray Al on 10-25-2023 Bilirubin.indirect [Mass/Vol] 0.8 mg/dL [facility] Sodium [Moles/volume] in Ser um or PlasmaOrdered By: Mary Al on 10-25-2023 Sodium [Moles/Vol] 133 mmol/L 136-145 [facility] Comment on above: Delta: 142 on Specific gravity Auto test s trip (U) [Rel density]Ordered By: Mary Al on 10-25-2023 Specific gravity (U) [Rel density] 1.037 1.001-1.[address] [facility] Squamous epithelial cells de tection in urine sediment by light microscopyOrdered By: Mary Al on 10-25-2023 Epithelial cells.squamous LM Ql (Urine sed) 0-1 [HPF] 0-2 [facility] Troponin I.cardiac [Mass/vol ume] in Serum or Plasma by Detection limit <= 0.01 ng/Ordered By: Mary Al on 10-25-2023 Troponin I.cardiac DL <= 0.01 ng/mL [Mass/Vol] 4.9 pg/mL 0.0-15.0 [facility] Urea nitrogen [Mass/volume] in Serum or PlasmaOrdered By: Mary Al on 10-25-2023 Urea nitrogen [Mass/Vol] 20 mg/dL 7-25 [facility] Urine bacteria detection by automated methodOrdered By: Mary Al on 10-25-2023 Bacteria Auto Ql (U) None seen None Seen [facility] Urine clarity by refractomet ry automatedOrdered By: Mary Al on 10-25-2023 Clarity Refractometry automated (U) Clear Clear [facility] Urine culture routineOrdered By: Mary Al on 10-25-2023 Bacteria identified Cx Nom (U) [address] [facility] Urine glucose measurement by automated test strip (mass/volume)Ordered By: Mary Al on 10-25-2023 Glucose Auto test strip (U) [Mass/Vol] Normal mg/dL Normal [facility] Urine hemoglobin detection b y automated test stripOrdered By: Mary Al on 10-25-2023 Hemoglobin Auto test strip Ql (U) Trace Negative [facility] Urine leukocyte esterase det ection by automated test stripOrdered By: Mary Al on 10-25-2023 Leukocyte esterase Auto test strip Ql (U) 2+ Negative [facility] Urobilinogen Auto test strip (U) [Mass/Vol]Ordered By: Mary Al on 10-25-2023 Urobilinogen (U) [Mass/Vol] Normal mg/dL Normal [facility] WBC Auto (Bld) [#/Vol]Ordere d By: Mary Al on 10-25-2023 WBC (Bld) [#/Vol] 14.4 10*3/uL 3.8-11.6 [facility] pH Auto test strip (U)Ordere d By: Mary Al on 10-25-2023 pH (U) 5.5 [pH] 5.0-9.0 [facility] Alanine aminotransferase [En zymatic activity/volume] in Serum or PlasmaOrdered By: Charles Bazzi on 10-24-2023 ALT [Catalytic activity/Vol] 12 U/L 7-52 [facility] Albumin [Mass/volume] in Ser um or Plasma by Bromocresol green (BCG) dye binding methoOrdered By: Charles Bazzi on 10-24-2023 Albumin BCG dye [Mass/Vol] 4.0 g/dL 3.5-5.7 [facility] Alkaline phosphatase [Enzyma tic activity/volume] in Serum or PlasmaOrdered By: Charles Bazzi on 10-24-2023 ALP [Catalytic activity/Vol] 68 U/L 34-104 [facility] Aspartate aminotransferase [ Enzymatic activity/volume] in Serum or PlasmaOrdered By: Charles Bazzi on 10-24-2023 AST [Catalytic activity/Vol] 12 U/L 13-39 [facility] Basophils Auto (Bld) [#/Vol] Ordered By: Charles Bazzi on 10-24-2023 Basophils (Bld) [#/Vol] 0.0 10*3/uL 0.0-0.2 [facility] Basophils/100 WBC Auto (Bld) Ordered By: Charles Bazzi on 10-24-2023 Basophils/100 WBC (Bld) 0.9 % . [facility] Bilirubin.total [Mass/volume ] in Serum or PlasmaOrdered By: Charles Bazzi on 10-24-2023 Bilirubin [Mass/Vol] 0.5 mg/dL 0.3-1.0 [facility] Calcium [Mass/volume] in Ser um or PlasmaOrdered By: Charles Bazzi on 10-24-2023 Calcium [Mass/Vol] 9.5 mg/dL 8.6-10.3 [facility] Carbon dioxide, total [Moles /volume] in Serum or PlasmaOrdered By: Charles Bazzi on 10-24-2023 CO2 [Moles/Vol] 31.6 mmol/L 21.0-31.[address] [facility] Chloride [Moles/volume] in S jeevan or PlasmaOrdered By: Charles Bazzi on 10-24-2023 Chloride [Moles/Vol] 105 mmol/L 98-107 [facility] Cholesterol [Mass/volume] in Serum or PlasmaOrdered By: Charles Bazzi on 10-24-2023 Cholesterol [Mass/Vol] 187 mg/dL 140-200 [facility] Comment on above: Chol less than 200 m g/dl low riskChol 201-239 mg/dl borderline riskChol 240 mg/dl and greater high risk Cholesterol in LDL Calc [Mas s/Vol]Ordered By: Charles Bazzi on 10-24-2023 Cholesterol in LDL [Mass/Vol] 95 mg/dL 0-100 [facility] Comment on above: LDL ATP III CLASSIFI CATIONLDL less than 100 mg/dL OptimalLDL 100-129 mg/dL Near or above optimalLDL 130-159 mg/dL Borderline highLDL 160-189 mg/dL HighLDL greater than 189 mg/dL Very high Cholesterol in VLDL Calc [Ma ss/Vol]Ordered By: Charles Bazzi on 10-24-2023 Cholesterol in VLDL [Mass/Vol] 38 mg/dL [facility] Creatinine [Mass/volume] in Serum or PlasmaOrdered By: Charles Bazzi on 10-24-2023 Creatinine [Mass/Vol] 0.71 mg/dL 0.60-1.20 [facility] Eosinophils Auto (Bld) [#/Vo l]Ordered By: Charles Bazzi on 10-24-2023 Eosinophils (Bld) [#/Vol] 0.5 10*3/uL 0.0-0.45 [facility] Eosinophils/100 WBC Auto (Bl d)Ordered By: Charles Bazzi on 10-24-2023 Eosinophils/100 WBC (Bld) 9.5 % . [facility] Erythrocyte distribution wid th Auto (RBC) [Ratio]Ordered By: Charles Bazzi on 10-24-2023 Erythrocyte distribution width (RBC) [Ratio] 15.4 % 11.9-15.3 [facility] Globulin Calc (S) [Mass/Vol] Ordered By: Charles Bazzi on 10-24-2023 Globulin (S) [Mass/Vol] 2.2 g/dL [facility] Glucose [Mass/volume] in Ser um or PlasmaOrdered By: Charles Bazzi on 10-24-2023 Glucose [Mass/Vol] 77 mg/dL 70-100 [facility] Comment on above: ADA recommended refe rence rangeRandom Glucose Reference Range is dependent on time and content of last meal. Glucose of more than 200 mg/dL in a nonstressed, ambulatory subject supports the diagnosis of Diabetes Mellitus. Glucose mean value [Mass/vol ume] in Blood Estimated from glycated hemoglobinOrdered By: Charles Bazzi on 10-24-2023 Average glucose Estimated from glycated hemoglobin (Bld) [Mass/Vol] 111 mg/dL [facility] Hematocrit Auto (Bld) [Volum e fraction]Ordered By: Charles Bazzi on 10-24-2023 Hematocrit (Bld) [Volume fraction] 34.2 % 34.0-46.4 [facility] Hemoglobin A1c percentageOrd ered By: Charles Bazzi on 10-24-2023 HbA1c (Bld) [Mass fraction] 5.5 % 4.3-5.6 [facility] Comment on above: Increased risk for d iabetes: 5.7 - 6.4diabetes: >6.4glycemic control for adults with diabetes: <7.0 Hemoglobin [Mass/volume] in BloodOrdered By: Charles Bazzi on 10-24-2023 Hemoglobin (Bld) [Mass/Vol] 11.3 g/dL 11.8-15.4 [facility] Leukocytes [#/volume] correc french for nucleated erythrocytes in Blood by Automated counOrdered By: Charles Bazzi on 10-24-2023 WBC corrected for nucl RBC Auto (Bld) [#/Vol] 4.9 10*3/uL 3.8-11.6 [facility] Lymphocytes Auto (Bld) [#/Vo l]Ordered By: Charles Bazzi on 10-24-2023 Lymphocytes (Bld) [#/Vol] 1.0 10*3/uL 1.00-4.8 [facility] Lymphocytes/100 WBC Auto (Bl d)Ordered By: Charles Bazzi on 10-24-2023 Lymphocytes/100 WBC (Bld) 20.9 % . [facility] MCH Auto (RBC) [Entitic mass ]Ordered By: Charles Bazzi on 10-24-2023 MCH (RBC) [Entitic mass] 29.7 pg 24.7-34.3 [facility] MCHC Auto (RBC) [Mass/Vol]Or dered By: Charles Bazzi on 10-24-2023 MCHC (RBC) [Mass/Vol] 33.1 g/dL 32.0-35.0 [facility] MCV Auto (RBC) [Entitic vol] Ordered By: Charles Bazzi on 10-24-2023 MCV (RBC) [Entitic vol] 89.9 fL 80-100 [facility] Monocytes Auto (Bld) [#/Vol] Ordered By: Charles Bazzi on 10-24-2023 Monocytes (Bld) [#/Vol] 0.5 10*3/uL 0.0-0.8 [facility] Monocytes/100 WBC Auto (Bld) Ordered By: Charles Bazzi on 10-24-2023 Monocytes/100 WBC (Bld) 10.5 % . [facility] Neutrophils Auto (Bld) [#/Vo l]Ordered By: Charles Bazzi on 10-24-2023 Neutrophils (Bld) [#/Vol] 2.9 10*3/uL 1.8-7.7 [facility] Neutrophils/100 WBC Auto (Bl d)Ordered By: Charles Bazzi on 10-24-2023 Neutrophils/100 WBC (Bld) 58.2 % . [facility] No Panel InformationOrdered By: Charles Bazzi on 10-24-2023 Estimated GFR (CKD-EPI) > 60.0 mL/Min [facility] Creatinine Clearance (Chem N/A [facility] Nucleated erythrocytes [Pres ence] in Blood by Automated countOrdered By: Charles Bazzi on 10-24-2023 Nucleated RBC Auto Ql (Bld) 0.1 /100{WBC} 0-0.5 [facility] Platelet mean volume Auto (B ld) [Entitic vol]Ordered By: Charles Bazzi on 10-24-2023 Platelet mean volume (Bld) [Entitic vol] 6.6 fL 6.3-10.7 [facility] Platelets Auto (Bld) [#/Vol] Ordered By: Charles Bazzi on 10-24-2023 Platelets (Bld) [#/Vol] 328 10*3/uL 150-450 [facility] Potassium [Moles/volume] in Serum or PlasmaOrdered By: Charles Bazzi on 10-24-2023 Potassium [Moles/Vol] 4.3 mmol/L 3.5-5.1 [facility] Protein [Mass/volume] in Ser um or PlasmaOrdered By: Charles Bazzi on 10-24-2023 Protein [Mass/Vol] 6.2 g/dL 6.4-8.9 [facility] RBC Auto (Bld) [#/Vol]Ordere d By: Charles Bazzi on 10-24-2023 RBC (Bld) [#/Vol] 3.80 10*6/uL 3.60-5.00 [facility] Serum or plasma albumin/glob ulin mass ratioOrdered By: Charles Bazzi on 10-24-2023 Albumin/Globulin [Mass ratio] 1.8 {ratio} [facility] Serum or plasma anion gap de terminationOrdered By: Charles Bazzi on 10-24-2023 Anion gap [Moles/Vol] 9.7 mmol/L 6.0-15.0 [facility] Serum or plasma high density lipoprotein (HDL) cholesterol measurementOrdered By: Charles Bazzi on 10-24-2023 Cholesterol in HDL [Mass/Vol] 54 mg/dL 23-92 [facility] Comment on above: HDL CHOL ATP-III CLA SSIFICATION Cardiovascular RiskHDL > or equal to 60 mg/dL LOWHDL < 40 mg/dL HIGH Serum or plasma total choles terol/high density lipoprotein (HDL) cholesterol mass ratOrdered By: Charles Bazzi on 10-24-2023 Cholesterol.total/Chol esterol in HDL [Mass ratio] 3.5 {ratio} <5.0 [facility] Sodium [Moles/volume] in Ser um or PlasmaOrdered By: Charles Bazzi on 10-24-2023 Sodium [Moles/Vol] 142 mmol/L 136-145 [facility] Thyrotropin [Units/volume] i n Serum or PlasmaOrdered By: Charles Bazzi on 10-24-2023 TSH Qn 2.33 m[IU]/L 0.45-5.33 [facility] Triglyceride [Mass/volume] i n Serum or PlasmaOrdered By: Charles Bazzi on 10-24-2023 Triglyceride [Mass/Vol] 191 mg/dL 0-149 [facility] Comment on above: TRIG ATP III CLASSIF ICATIONTRIG less than 150 mg/dL NormalTRIG 150-199 mg/dL Borderline highTRIG 200-500 mg/dL High TRIG greater than 500 mg/dL Very highStandard traceable to the Center for Disease Conrtrol and Prevention (CDC) test method. Urea nitrogen [Mass/volume] in Serum or PlasmaOrdered By: Charles Bazzi on 10-24-2023 Urea nitrogen [Mass/Vol] 21 mg/dL 7-25 [facility] WBC Auto (Bld) [#/Vol]Ordere d By: Charles Bazzi on 10-24-2023 WBC (Bld) [#/Vol] 4.9 10*3/uL 3.8-11.6 [facility] Basophils Auto (Bld) [#/Vol] on 10-10-2023 Basophils (Bld) [#/Vol] 0.04 10*3/uL <0.11 [facility] Basophils/100 WBC Auto (Bld) on 10-10-2023 Basophils/100 WBC (Bld) 0.5 % [facility] Blood manual differential co mment interpretation narrativeon 10-10-2023 Manual differential comment Ankush (Bld) [Interp] Auto [facility] CBC W Auto Differential pane l (Bld)on 10-10-2023 Basophils (Bld) [#/Vol] 0.04 10*3/uL <0.11 k/uL [facility] Basophils/100 WBC (Bld) 0.5 % [facility] Differential cell count method Nom (Bld) Auto [facility] Eosinophils (Bld) [#/Vol] 0.52 10*3/uL High <0.46 k/uL [facility] Eosinophils/100 WBC (Bld) 7.1 % [facility] Erythrocyte distribution width (RBC) [Ratio] 15.2 % High 11.5 - 15.0 % [facility] Hematocrit (Bld) [Volume fraction] 35.1 % Low 36.0 - 46.0 % [facility] Hemoglobin (Bld) [Mass/Vol] 11.7 g/dL 11.5 - 15.5 g/dL [facility] Immature granulocytes (Bld) [#/Vol] 0.04 10*3/uL <0.10 k/uL [facility] Immature granulocytes/100 WBC (Bld) 0.5 % [facility] Lymphocytes (Bld) [#/Vol] 0.62 10*3/uL Low 1.00 - 4.00 k/uL [facility] Lymphocytes/100 WBC (Bld) 8.5 % [facility] MCH (RBC) [Entitic mass] 29.8 pg 26.0 - 34.0 pg [facility] MCHC (RBC) [Mass/Vol] 33.3 g/dL 30.5 - 36.0 g/dL [facility] MCV (RBC) [Entitic vol] 89.5 fL 80.0 - 100.0 fL [facility] Monocytes (Bld) [#/Vol] 0.62 10*3/uL <0.87 k/uL [facility] Monocytes/100 WBC (Bld) 8.5 % [facility] Neutrophils (Bld) [#/Vol] 5.49 10*3/uL 1.45 - 7.50 k/uL [facility] Neutrophils/100 WBC (Bld) 74.9 % [facility] Nucleated RBC (Bld) [#/Vol] <0.01 k/uL [facility] Nucleated RBC/100 WBC (Bld) [Ratio] 0.0 /100 WBC [facility] Platelet mean volume (Bld) [Entitic vol] 8.1 fL Low 9.0 - 12.7 fL [facility] Platelets (Bld) [#/Vol] 274 10*3/uL 150 - 400 k/uL [facility] RBC (Bld) [#/Vol] 3.92 10*6/uL 3.90 - 5.20 m/uL [facility] WBC (Bld) [#/Vol] 7.33 10*3/uL 3.70 - 11.00 k/uL [facility] Comprehensive metabolic 2000 panelon 10-10-2023 Albumin [Mass/Vol] 4.3 g/dL 3.9 - 4.9 g/dL [facility] ALP [Catalytic activity/Vol] 103 U/L 34 - 123 U/L [facility] ALT [Catalytic activity/Vol] 15 U/L 7 - 38 U/L [facility] Anion gap [Moles/Vol] 12 mmol/L 9 - 18 mmol/L [facility] AST [Catalytic activity/Vol] 13 U/L 13 - 35 U/L [facility] Bilirubin [Mass/Vol] 0.2 mg/dL 0.2 - 1 .3 mg/dL [facility] Calcium [Mass/Vol] 9.3 mg/dL 8.5 - 10. 2 mg/dL [facility] Chloride [Moles/Vol] 114 mmol/L High 97 - 10 5 mmol/L [facility] CO2 [Moles/Vol] 22 mmol/L 22 - 30 mmol/L [facility] Creatinine [Mass/Vol] 0.70 mg/dL 0.58 - 0.96 mg/dL [facility] Estimated Glomerular Filtration Rate 93 mL/min/1.73m >=60 mL/min/1.7 3m [facility] Glucose [Mass/Vol] 114 mg/dL High 74 - 99 mg/dL [facility] Potassium [Moles/Vol] 4.2 mmol/L 3.7 - 5.1 mmol/L [facility] Protein [Mass/Vol] 6.6 g/dL 6.3 - 8.0 g/dL [facility] Sodium [Moles/Vol] 148 mmol/L High 136 - 144 mmol/L [facility] Urea nitrogen [Mass/Vol] 22 mg/dL High 7 - 21 mg/dL [facility] Eosinophils/100 WBC Auto (Bl d)on 10-10-2023 Eosinophils/100 WBC (Bld) 7.1 % [facility] Erythrocyte distribution wid th Auto (RBC) [Ratio]on 10-10-2023 Erythrocyte distribution width (RBC) [Ratio] 15.2 % 11.5-15.0 [facility] Hematocrit Auto (Bld) [Volum e fraction]on 10-10-2023 Hematocrit (Bld) [Volume fraction] 35.1 % 36.0-46.0 [facility] Hemoglobin [Mass/volume] in Bloodon 10-10-2023 Hemoglobin (Bld) [Mass/Vol] 11.7 g/dL 11.5-15.5 [facility] Laboratory - Chemistry and C hemistry - challengeon 10-10-2023 Albumin [Mass/Vol] 4.3 g/dL 3.9-4.9 [facility] ALP [Catalytic activity/Vol] 103 U/L 34-123 [facility] ALT [Catalytic activity/Vol] 15 U/L 7-38 [facility] AST [Catalytic activity/Vol] 13 U/L 13-35 [facility] Bilirubin [Mass/Vol] 0.2 mg/dL 0.2-1.3 [facility] Calcium [Mass/Vol] 9.3 mg/dL 8.5-10.2 [facility] Chloride [Moles/Vol] 114 mmol/L 97-105 [facility] CO2 [Moles/Vol] 22 mmol/L 22-30 [facility] Creatinine [Mass/Vol] 0.70 mg/dL 0.58-0.96 [facility] Glucose [Mass/Vol] 114 mg/dL 74-99 [facility] Comment on above: The [place] Diab[employer] [place] Association (ADA) provides guidance for [...] Standards of Medical Care in Diabetes 2016, [place] [employer]. Diabetes Care. 2016.39(Suppl 1). Potassium [Moles/Vol] 4.2 mmol/L 3.7-5.1 [facility] Sodium [Moles/Vol] 148 mmol/L 136-144 [facility] Urea nitrogen [Mass/Vol] 22 mg/dL 7-21 [facility] Laboratory - Hematology and Cell countson 10-10-2023 Eosinophils (Bld) [#/Vol] 0.52 10*3/uL <0.46 [facility] Immature granulocytes (Bld) [#/Vol] 0.04 10*3/uL <0.10 [facility] Immature granulocytes/100 WBC (Bld) 0.5 % [facility] Leukocytes [#/volume] correc french for nucleated erythrocytes in Blood by Automated counon 10-10-2023 WBC corrected for nucl RBC Auto (Bld) [#/Vol] 7.33 k/uL 3.70-11.00 [facility] Lymphocytes Auto (Bld) [#/Vo l]on 10-10-2023 Lymphocytes (Bld) [#/Vol] 0.62 10*3/uL 1.00-4.00 [facility] Lymphocytes/100 WBC Auto (Bl d)on 10-10-2023 Lymphocytes/100 WBC (Bld) 8.5 % [facility] MCH Auto (RBC) [Entitic mass ]on 10-10-2023 MCH (RBC) [Entitic mass] 29.8 pg 26.0-34.0 [facility] MCHC Auto (RBC) [Mass/Vol]on 10-10-2023 MCHC (RBC) [Mass/Vol] 33.3 g/dL 30.5-36.0 [facility] MCV Auto (RBC) [Entitic vol] on 10-10-2023 MCV (RBC) [Entitic vol] 89.5 fL 80.0-100.0 [facility] Monocytes Auto (Bld) [#/Vol] on 10-10-2023 Monocytes (Bld) [#/Vol] 0.62 10*3/uL <0.87 [facility] Monocytes/100 WBC Auto (Bld) on 10-10-2023 Monocytes/100 WBC (Bld) 8.5 % [facility] Neutrophils Auto (Bld) [#/Vo l]on 10-10-2023 Neutrophils (Bld) [#/Vol] 5.49 10*3/uL 1.45-7.50 [facility] Neutrophils/100 WBC Auto (Bl d)on 10-10-2023 Neutrophils/100 WBC (Bld) 74.9 % [facility] No Panel Informationon 10-09 Estimated GFR (CKD-EPI) 93 mL/min/1.73m??? >=60 [facility] Comment on above: Estimated Glomerular Filtration [...] 10-10-2023 Nucleated RBC (Bld) [#/Vol] 10*3/uL <0.01 [facility] Nucleated erythrocytes [Pres ence] in Blood by Automated counton 10-10-2023 Nucleated RBC Auto Ql (Bld) 0.0 /100{WBC} [facility] Platelet mean volume Auto (B ld) [Entitic vol]on 10-10-2023 Platelet mean volume (Bld) [Entitic vol] 8.1 fL 9.0-12.7 [facility] Platelets Auto (Bld) [#/Vol] on 10-10-2023 Platelets (Bld) [#/Vol] 274 10*3/uL 150-400 [facility] Protein [Mass/volume] in Ser um or Plasmaon 10-10-2023 Protein [Mass/Vol] 6.6 g/dL 6.3-8.0 [facility] RBC Auto (Bld) [#/Vol]on RBC (Bld) [#/Vol] 3.92 10*6/uL 3.90-5.20 [facility] Serum or plasma anion gap de terminationon 10-10-2023 Anion gap [Moles/Vol] 12 mmol/L 9-18 [facility] Calcium [Mass/volume] in Ser um or PlasmaOrdered By: Miguel Ángel Delgadillo on 10-01-2023 Calcium [Mass/Vol] 8.7 mg/dL 8.6-10.3 [facility] Carbon dioxide, total [Moles /volume] in Serum or PlasmaOrdered By: Miguel Ángel Delgadillo on 10-01-2023 CO2 [Moles/Vol] 29.6 mmol/L 21.0-31.[address] [facility] Chloride [Moles/volume] in S jeevan or PlasmaOrdered By: Miguel Ángel Delgadillo on 10-01-2023 Chloride [Moles/Vol] 108 mmol/L 98-107 [facility] Creatinine [Mass/volume] in Serum or PlasmaOrdered By: Miguel Ángel Delgadillo on 10-01-2023 Creatinine [Mass/Vol] 0.66 mg/dL 0.60-1.20 [facility] Erythrocyte distribution wid th Auto (RBC) [Ratio]Ordered By: Miguel Ángel Delgadillo on 10-01-2023 Erythrocyte distribution width (RBC) [Ratio] 16.1 % 11.9-15.3 [facility] Glucose [Mass/volume] in Ser um or PlasmaOrdered By: Miguel Ángel Delgadillo on 10-01-2023 Glucose [Mass/Vol] 93 mg/dL 70-100 [facility] Comment on above: ADA recommended refe rence rangeRandom Glucose Reference Range is dependent on time and content of last meal. Glucose of more than 200 mg/dL in a nonstressed, ambulatory subject supports the diagnosis of Diabetes Mellitus. Hematocrit Auto (Bld) [Volum e fraction]Ordered By: Miguel Ángel Delgadillo on 10-01-2023 Hematocrit (Bld) [Volume fraction] 30.5 % 34.0-46.4 [facility] Hemoglobin [Mass/volume] in BloodOrdered By: Miguel Ángel Delgadillo on 10-01-2023 Hemoglobin (Bld) [Mass/Vol] 10.3 g/dL 11.8-15.4 [facility] Leukocytes [#/volume] correc french for nucleated erythrocytes in Blood by Automated counOrdered By: Miguel Ángel Delgadillo on 10-01-2023 WBC corrected for nucl RBC Auto (Bld) [#/Vol] 4.9 10*3/uL 3.8-11.6 [facility] MCH Auto (RBC) [Entitic mass ]Ordered By: Miguel Ángel Delgadillo on 10-01-2023 MCH (RBC) [Entitic mass] 29.8 pg 24.7-34.3 [facility] MCHC Auto (RBC) [Mass/Vol]Or dered By: Miguel Ángel Delgadillo on 10-01-2023 MCHC (RBC) [Mass/Vol] 33.9 g/dL 32.0-35.0 [facility] MCV Auto (RBC) [Entitic vol] Ordered By: Miguel Ángel Delgadillo on 10-01-2023 MCV (RBC) [Entitic vol] 87.8 fL 80-100 [facility] No Panel InformationOrdered By: Miguel Ángel Delgadillo on 10-01-2023 Estimated GFR (CKD-EPI) > 60.0 mL/Min [facility] Creatinine Clearance (Chem 61.17 [facility] Platelet mean volume Auto (B ld) [Entitic vol]Ordered By: Miguel Ángel Delgadillo on 10-01-2023 Platelet mean volume (Bld) [Entitic vol] 6.8 fL 6.3-10.7 [facility] Platelets Auto (Bld) [#/Vol] Ordered By: Miguel Ángel Delgadillo on 10-01-2023 Platelets (Bld) [#/Vol] 257 10*3/uL 150-450 [facility] Potassium [Moles/volume] in Serum or PlasmaOrdered By: Miguel Ángel Delgadillo on 10-01-2023 Potassium [Moles/Vol] 4.1 mmol/L 3.5-5.1 [facility] RBC Auto (Bld) [#/Vol]Ordere d By: Miguel Ángel Delgadillo on 10-01-2023 RBC (Bld) [#/Vol] 3.47 10*6/uL 3.60-5.00 [facility] Serum or plasma anion gap de terminationOrdered By: Miguel Ángle Delgadillo on 10-01-2023 Anion gap [Moles/Vol] 8.5 mmol/L 6.0-15.0 [facility] Sodium [Moles/volume] in Ser um or PlasmaOrdered By: Miguel Ángel Delgadillo on 10-01-2023 Sodium [Moles/Vol] 142 mmol/L 136-145 [facility] Urea nitrogen [Mass/volume] in Serum or PlasmaOrdered By: Miguel Ángel Delgadillo on 10-01-2023 Urea nitrogen [Mass/Vol] 10 mg/dL 01-31 [facility] Alanine aminotransferase [En zymatic activity/volume] in Serum or PlasmaOrdered By: Patrice Springer on 09-30-2023 ALT [Catalytic activity/Vol] 15 U/L [facility] Albumin [Mass/volume] in Ser um or Plasma by Bromocresol green (BCG) dye binding methoOrdered By: Patrice Springer on 09-30-2023 Albumin BCG dye [Mass/Vol] 4.1 g/dL 3.5-5.7 [facility] Alkaline phosphatase [Enzyma tic activity/volume] in Serum or PlasmaOrdered By: Patrice Springer on 09-30-2023 ALP [Catalytic activity/Vol] 68 U/L 34-104 [facility] Aspartate aminotransferase [ Enzymatic activity/volume] in Serum or PlasmaOrdered By: Patrice Springer on 09-30-2023 AST [Catalytic activity/Vol] 19 U/L 13-39 [facility] Basophils Auto (Bld) [#/Vol] Ordered By: Patrice Springer on 09-30-2023 Basophils (Bld) [#/Vol] 0.1 10*3/uL 0.0-0.2 [facility] Basophils/100 WBC Auto (Bld) Ordered By: Patrice Springer on 09-30-2023 Basophils/100 WBC (Bld) 1.2 % . [facility] Bilirubin.direct [Mass/volum e] in Serum or PlasmaOrdered By: Patrice Springer on 09-30-2023 Bilirubin.direct [Mass/Vol] 0.10 mg/dL 0.03-0.18 [facility] Bilirubin.total [Mass/volume ] in Serum or PlasmaOrdered By: Patrice Springer on 09-30-2023 Bilirubin [Mass/Vol] 0.5 mg/dL 0.3-1.0 [facility] Calcium [Mass/volume] in Ser um or PlasmaOrdered By: Patrice Springer on 09-30-2023 Calcium [Mass/Vol] 9.8 mg/dL 8.6-10.3 [facility] Carbon dioxide, total [Moles /volume] in Serum or PlasmaOrdered By: Patrice Springer on 09-30-2023 CO2 [Moles/Vol] 25.6 mmol/L 21.0-31.[address] [facility] Chloride [Moles/volume] in S jeevan or PlasmaOrdered By: Patrice Springer on 09-30-2023 Chloride [Moles/Vol] 105 mmol/L 98-107 [facility] Creatinine [Mass/volume] in Serum or PlasmaOrdered By: Patrice Springer on 09-30-2023 Creatinine [Mass/Vol] 0.72 mg/dL 0.60-1.20 [facility] Eosinophils Auto (Bld) [#/Vo l]Ordered By: Patrice Springer on 09-30-2023 Eosinophils (Bld) [#/Vol] 0.7 10*3/uL 0.0-0.45 [facility] Eosinophils/100 WBC Auto (Bl d)Ordered By: Patrice Springer on 09-30-2023 Eosinophils/100 WBC (Bld) 7.3 % . [facility] Erythrocyte distribution wid th Auto (RBC) [Ratio]Ordered By: Patrice Springer on 09-30-2023 Erythrocyte distribution width (RBC) [Ratio] 16.4 % 11.9-15.3 [facility] Globulin Calc (S) [Mass/Vol] Ordered By: Patrice Springer on 09-30-2023 Globulin (S) [Mass/Vol] 2.6 g/dL [facility] Glucose [Mass/volume] in Ser um or PlasmaOrdered By: Patrice Springer on 09-30-2023 Glucose [Mass/Vol] 111 mg/dL 70-100 [facility] Comment on above: ADA recommended refe rence rangeRandom Glucose Reference Range is dependent on time and content of last meal. Glucose of more than 200 mg/dL in a nonstressed, ambulatory subject supports the diagnosis of Diabetes Mellitus. Hematocrit Auto (Bld) [Volum e fraction]Ordered By: Patrice Springer on 09-30-2023 Hematocrit (Bld) [Volume fraction] 38.1 % 34.0-46.4 [facility] Hemoglobin [Mass/volume] in BloodOrdered By: Patirce Springer on 09-30-2023 Hemoglobin (Bld) [Mass/Vol] 12.7 g/dL 11.8-15.4 [facility] Leukocytes [#/volume] correc french for nucleated erythrocytes in Blood by Automated counOrdered By: Patrice Springer on 09-30-2023 WBC corrected for nucl RBC Auto (Bld) [#/Vol] 9.5 10*3/uL 3.8-11.6 [facility] Lipase [Enzymatic activity/v olume] in Serum or PlasmaOrdered By: Patrice Springer on 09-30-2023 Lipase [Catalytic activity/Vol] 5.0 U/L 11.0-82.0 [facility] Lymphocytes Auto (Bld) [#/Vo l]Ordered By: Patrice Springer on 09-30-2023 Lymphocytes (Bld) [#/Vol] 1.1 10*3/uL 1.00-4.8 [facility] Lymphocytes/100 WBC Auto (Bl d)Ordered By: Patrice Springer on 09-30-2023 Lymphocytes/100 WBC (Bld) 12.0 % . [facility] MCH Auto (RBC) [Entitic mass ]Ordered By: Patrice Springer on 09-30-2023 MCH (RBC) [Entitic mass] 29.2 pg 24.7-34.3 [facility] MCHC Auto (RBC) [Mass/Vol]Or dered By: Patrice Springer on 09-30-2023 MCHC (RBC) [Mass/Vol] 33.3 g/dL 32.0-35.0 [facility] MCV Auto (RBC) [Entitic vol] Ordered By: Patrice Springer on 09-30-2023 MCV (RBC) [Entitic vol] 87.7 fL 80-100 [facility] Monocyte distribution width [Entitic volume] in Blood by AutomatedOrdered By: Patrice Springer on 09-30-2023 Monocyte distribution width Auto (Bld) [Entitic vol] 15.40 % 0.00-20.00 [facility] Monocytes Auto (Bld) [#/Vol] Ordered By: Patrice Springer on 09-30-2023 Monocytes (Bld) [#/Vol] 0.8 10*3/uL 0.0-0.8 [facility] Monocytes/100 WBC Auto (Bld) Ordered By: Patrice Springer on 09-30-2023 Monocytes/100 WBC (Bld) 8.0 % . [facility] Neutrophils Auto (Bld) [#/Vo l]Ordered By: Patrice Springer on 09-30-2023 Neutrophils (Bld) [#/Vol] 6.8 10*3/uL 1.8-7.7 [facility] Neutrophils/100 WBC Auto (Bl d)Ordered By: Patrice Springer on 09-30-2023 Neutrophils/100 WBC (Bld) 71.5 % . [facility] No Panel InformationOrdered By: Patrice Springer on 09-30-2023 Estimated GFR (CKD-EPI) > 60.0 mL/Min [facility] Creatinine Clearance (Chem 56.50 [facility] Nucleated erythrocytes [Pres ence] in Blood by Automated countOrdered By: Patrice Springer on 09-30-2023 Nucleated RBC Auto Ql (Bld) 0.1 /100{WBC} 0-0.5 [facility] Platelet mean volume Auto (B ld) [Entitic vol]Ordered By: Patrice Springer on 09-30-2023 Platelet mean volume (Bld) [Entitic vol] 6.6 fL 6.3-10.7 [facility] Platelets Auto (Bld) [#/Vol] Ordered By: Patrice Springer on 09-30-2023 Platelets (Bld) [#/Vol] 333 10*3/uL 150-450 [facility] Potassium [Moles/volume] in Serum or PlasmaOrdered By: Patrice Springer on 09-30-2023 Potassium [Moles/Vol] 3.9 mmol/L 3.5-5.1 [facility] Protein [Mass/volume] in Ser um or PlasmaOrdered By: Patrice Springer on 09-30-2023 Protein [Mass/Vol] 6.7 g/dL 6.4-8.9 [facility] RBC Auto (Bld) [#/Vol]Ordere d By: Patrice Springer on 09-30-2023 RBC (Bld) [#/Vol] 4.35 10*6/uL 3.60-5.00 [facility] Serum or plasma albumin/glob ulin mass ratioOrdered By: Patrice Springer on 09-30-2023 Albumin/Globulin [Mass ratio] 1.6 {ratio} [facility] Serum or plasma anion gap de terminationOrdered By: Patrice Springer on 09-30-2023 Anion gap [Moles/Vol] 12.3 mmol/L 6.0-15.0 [facility] Serum or plasma non-glucuron idated bilirubin measurement (mass/volume)Ordered By: Patrice Springer on 09-30-2023 Bilirubin.indirect [Mass/Vol] 0.4 mg/dL [facility] Sodium [Moles/volume] in Ser um or PlasmaOrdered By: Patrice Springer on 09-30-2023 Sodium [Moles/Vol] 139 mmol/L 136-145 [facility] Urea nitrogen [Mass/volume] in Serum or PlasmaOrdered By: Patrice Springer on 09-30-2023 Urea nitrogen [Mass/Vol] 21 mg/dL 7-25 [facility] WBC Auto (Bld) [#/Vol]Ordere d By: Patrice Springer on 09-30-2023 WBC (Bld) [#/Vol] 9.5 10*3/uL 3.8-11.6 [facility] Basic metabolic 2000 panelon 09-04-2023 Anion gap [Moles/Vol] 9 mmol/L Normal 9-18 [facility] Comment on above: Order Comment: Speci men Type: BLOOD SPECIMENOrdering Facility: [facility] Address: [address] [place] [address] Performed By: #### 2 777-1, 72041-6, ####[facility] LABORATORYCLIA [id number] [place] [id number] [place] Calcium [Mass/Vol] 8.7 mg/dL Normal 8.5-10.2 [facility] Comment on above: Order Comment: Speci men Type: BLOOD SPECIMENOrdering Facility: [facility] Address: [address] [place] [address] Performed By: #### 2 777-1, 98873-1, ####[facility] LABORATORYCLIA [id number] [place] [address] [place] Chloride [Moles/Vol] 109 mmol/L High 97-105 [facility] Comment on above: Order Comment: Speci men Type: BLOOD SPECIMENOrdering Facility: [facility] Address: [address] [place] [address] Performed By: #### 2 777-1, 35067-5, ####[facility] LABORATORYCLIA [id number] [place] [id number] [place] CO2 [Moles/Vol] 25 mmol/L Normal 22-30 [facility] Comment on above: Order Comment: Speci men Type: BLOOD SPECIMENOrdering Facility: [facility] Address: [address] [place] [address] Performed By: #### 2 777-1, 83482-1, ####[facility]ORATORYCLIA [id number] [place] [id number] [place] Creatinine [Mass/Vol] 0.56 mg/dL Low 0.58-0.96 [facility] Comment on above: Order Comment: Speci men Type: BLOOD SPECIMENOrdering Facility: [facility] Address: [address] [place] [address] Performed By: #### 2 777-1, 86946-8, ####[facility]ORATORYCLIA [id number] [place] [id number] [place] Creatinine and Glomerular filtration rate.predicted panel (S/P/Bld) 98 mL/min/1.73m??? Normal >=60 [facility] Comment on above: Order Comment: Mason simpson Type: BLOOD SPECIMENOrdering Facility: [facility] Address: [address] [place] [address] Result Comment: Farhana mated Glomerular Filtration Rate [...] actual GFR. Performed By: #### 2 777-1, 05464-2, ####[facility]ORATORYCLIA [id number] [place] [id number] [place] Glucose [Mass/Vol] 99 mg/dL Normal 74-99 [facility] Comment on above: Order Comment: Mason simpson Type: BLOOD SPECIMENOrdering Facility: [facility] Address: [address] [place] [address] Result Comment: The [place] Diabetes [employer] (ADA) provides guidance for cutoff [...] Standards of Medical Care in Diabetes 2016, [place] [employer]. Diabetes Care. 2016.39(Suppl 1). Performed By: #### 2 777-1, 47525-5, ####[facility]ATORYCLIA [id number] [place] [address] [place] Potassium [Moles/Vol] 3.8 mmol/L Normal 3.7-5.1 [facility] Comment on above: Order Comment: Speci men Type: BLOOD SPECIMENOrdering Facility: [facility] Address: [address] [place] [address] Performed By: #### 2 777-1, 02140-2, ####[facility]ATORYCLIA [id number] [place] [id number] [place] Sodium [Moles/Vol] 143 mmol/L Normal 136-144 [facility] Comment on above: Order Comment: Speci men Type: BLOOD SPECIMENOrdering Facility: [facility] Address: [address] [place] [address] Performed By: #### 2 777-1, 36872-0, ####[facility] LABORATORYCLIA [id number] [place] [id number] [place] Urea nitrogen [Mass/Vol] 11 mg/dL Normal 7-21 [facility] Comment on above: Order Comment: Speci men Type: BLOOD SPECIMENOrdering Facility: [facility] Address: [address] [place] [address] Performed By: #### 2 777-1, 05475-7, ####[facility] LABORATORYCLIA [id number] [place] [address] [place] CASE MANAGEMon 09-04-2023 CASE MANAGEM Normal [facility] CBC panel Auto (Bld)on 09-04 Erythrocyte distribution width (RBC) [Ratio] 14.4 % Normal 11.5-15.0 [facility] Comment on above: Order Comment: Speci men Type: BLOOD SPECIMENOrdering Facility: [facility] Address: [address] [place] [address] Performed By: #### 5 8410-2 ####[facility] LABORATORYCLIA [id number] [address] [place] Hematocrit (Bld) [Volume fraction] 31.1 % Low 36.0-46.0 [facility] Comment on above: Order Comment: Speci men Type: BLOOD SPECIMENOrdering Facility: [facility] Address: [address] [place] [address] Performed By: #### 5 8410-2 ####[facility] LABORATORYCLIA [id number] [address] [place] Hemoglobin (Bld) [Mass/Vol] 10.3 g/dL Low 11.5-15.5 [facility] Comment on above: Order Comment: Speci men Type: BLOOD SPECIMENOrdering Facility: [facility] Address: [address] [place] [address] Performed By: #### 5 8410-2 ####[facility] LABORATORYCLIA [id number] [address] [place] MCH (RBC) [Entitic mass] 29.3 pg Normal 26.0-34.0 [facility] Comment on above: Order Comment: Speci men Type: BLOOD SPECIMENOrdering Facility: [facility] Address: [address] [place] [address] Performed By: #### 5 8410-2 ####[facility] LABORATORYCLIA [id number] [address] [place] MCHC (RBC) [Mass/Vol] 33.1 g/dL Normal 30.5-36.0 [facility] Comment on above: Order Comment: Speci men Type: BLOOD SPECIMENOrdering Facility: [facility] Address: [address] [place] [address] Performed By: #### 5 8410-2 ####[facility] LABORATORYCLIA [id number] [address] MCV (RBC) [Entitic vol] 88.6 fL Normal 80.0-100.0 [facility] Comment on above: Order Comment: Speci men Type: BLOOD SPECIMENOrdering Facility: [facility] Address: [address] [place] [address] Performed By: #### 5 8410-2 ####[facility] LABORATORYCLIA [id number] [place] [id number] [place] Nucleated RBC (Bld) [#/Vol] 10*3/uL Normal <0.01 [facility] Comment on above: Order Comment: Speci men Type: BLOOD SPECIMENOrdering Facility: [facility] Address: [address] [place] [address] Performed By: #### 5 8410-2 ####[facility] LABORATORYCLIA [id number] [place] [id number] [place] Platelet mean volume (Bld) [Entitic vol] 8.5 fL Low 9.0-12.7 [facility] Comment on above: Order Comment: Speci men Type: BLOOD SPECIMENOrdering Facility: [facility] Address: [address] [place] [address] Performed By: #### 5 8410-2 ####[facility] LABORATORYCLIA [id number] [place] [address] [place] Platelets (Bld) [#/Vol] 319 10*3/uL Normal 150-400 [facility] Comment on above: Order Comment: Speci men Type: BLOOD SPECIMENOrdering Facility: [facility] Address: [address] [place] [address] Performed By: #### 5 8410-2 ####[facility] LABORATORYCLIA [id number] [place] [id number] [place] RBC (Bld) [#/Vol] 3.51 10*6/uL Low 3.90-5.20 [facility] Comment on above: Order Comment: Speci men Type: BLOOD SPECIMENOrdering Facility: [facility] Address: [address] [place] [address] Performed By: #### 5 8410-2 ####[facility] LABORATORYCLIA [id number] [place] [id number] [place] WBC (Bld) [#/Vol] 5.11 10*3/uL Normal 3.70-11.00 [facility] Comment on above: Order Comment: Speci men Type: BLOOD SPECIMENOrdering Facility: [facility] Address: [address] [place] [address] Performed By: #### 5 8410-2 ####[facility] LABORATORYCLIA [id number] [place] [address] [place] CNDSon 09-04-2023 CNDS Normal [facility] CONSULTon 09-04-2023 CONSULT Normal [facility] Erythrocyte distribution wid th Auto (RBC) [Ratio]on 09-04-2023 Erythrocyte distribution width (RBC) [Ratio] 14.4 % 11.5-15.0 [facility] Hematocrit Auto (Bld) [Volum e fraction]on 09-04-2023 Hematocrit (Bld) [Volume fraction] 31.1 % 36.0-46.0 [facility] Hemoglobin [Mass/volume] in Bloodon 09-04-2023 Hemoglobin (Bld) [Mass/Vol] 10.3 g/dL 11.5-15.5 [facility] Laboratory - Chemistry and C hemistry - challengeon 09-04-2023 Calcium [Mass/Vol] 8.7 mg/dL 8.5-10.2 [facility] Chloride [Moles/Vol] 109 mmol/L 97-105 [facility] CO2 [Moles/Vol] 25 mmol/L 22-30 [facility] Creatinine [Mass/Vol] 0.56 mg/dL 0.58-0.96 [facility] Glucose [Mass/Vol] 99 mg/dL 74-99 [facility] Comment on above: The [place] Diabete s Association (ADA) provides guidance for [...] Standards of Medical Care in Diabetes 2016, [place] [employer]. Diabetes Care. 2016.39(Suppl 1). Magnesium [Mass/Vol] 1.8 mg/dL 1.7-2.3 [facility] Potassium [Moles/Vol] 3.8 mmol/L 3.7-5.1 [facility] Sodium [Moles/Vol] 143 mmol/L 136-144 [facility] Urea nitrogen [Mass/Vol] 11 mg/dL 7-21 [facility] Leukocytes [#/volume] correc french for nucleated erythrocytes in Blood by Automated counon 09-04-2023 WBC corrected for nucl RBC Auto (Bld) [#/Vol] 5.11 k/uL 3.70-11.00 [facility] MCH Auto (RBC) [Entitic mass ]on 09-04-2023 MCH (RBC) [Entitic mass] 29.3 pg 26.0-34.0 [facility] MCHC Auto (RBC) [Mass/Vol]on 09-04-2023 MCHC (RBC) [Mass/Vol] 33.1 g/dL 30.5-36.0 [facility] MCV Auto (RBC) [Entitic vol] on 09-04-2023 MCV (RBC) [Entitic vol] 88.6 fL 80.0-100.0 [facility] Magnesium SerPl-mCncon 09-04 Magnesium [Mass/Vol] 1.8 mg/dL Normal 1.7-2.3 [facility] Comment on above: Order Comment: Speci men Type: BLOOD SPECIMENOrdering Facility: [facility] Address: [address] [place] [address] Performed By: #### 2 777-1, 39848-7, 81557-3 ####[facility] LABORATORYCLIA [id number] [place] [address] [place] NURSING PROGon 09-04-2023 NURSING PROG Normal [facility] No Panel Informationon 09-04 Estimated GFR (CKD-EPI) 98 mL/min/1.73m??? >=60 [facility] Comment on above: Estimated Glomerular Filtration [...] actual GFR. Phosphorus Level 4.6 mg/dL 2.7-4.[address] [facility] Nucleated RBC Auto (Bld) [#/ Vol]on 09-04-2023 Nucleated RBC (Bld) [#/Vol] 10*3/uL <0.01 [facility] Phosphate SerPl-mCncon 09-04 Phosphate [Mass/Vol] 4.6 mg/dL Normal 2.7-4.8 [facility] Comment on above: Order Comment: Speci tatiana Type: BLOOD SPECIMENOrdering Facility: [facility] Address: [address] [place] [address] Performed By: #### 2 777-1, 64402-7, 94101-3 ####[facility] LABORATORYCLIA [id number] [place] [address] [place] Platelet mean volume Auto (B ld) [Entitic vol]on 09-04-2023 Platelet mean volume (Bld) [Entitic vol] 8.5 fL 9.0-12.7 [facility] Platelets Auto (Bld) [#/Vol] on 09-04-2023 Platelets (Bld) [#/Vol] 319 10*3/uL 150-400 [facility] RBC Auto (Bld) [#/Vol]on RBC (Bld) [#/Vol] 3.51 10*6/uL 3.90-5.20 [facility] Serum or plasma anion gap de terminationon 09-04-2023 Anion gap [Moles/Vol] 9 mmol/L 9-18 [facility] Basic metabolic 2000 panelon 09-03-2023 Anion gap [Moles/Vol] 9 mmol/L Normal 9-18 [facility] Comment on above: Order Comment: Speci men Type: BLOOD SPECIMENOrdering Facility: [facility] Address: [address] [place] [address] Performed By: #### 1 9123-9, 27771, 32543-3 ####[facility] LABORATORYCLIA [id number] [place] [address] [place] Calcium [Mass/Vol] 8.9 mg/dL Normal 8.5-10.2 [facility] Comment on above: Order Comment: Speci men Type: BLOOD SPECIMENOrdering Facility: [facility] Address: [address] [place] [address] Performed By: #### 1 9123-9, 27701-07, 33409-8 ####[facility] LABORATORYCLIA [id number] [place] [address] [place] Chloride [Moles/Vol] 105 mmol/L Normal 97-105 [facility] Comment on above: Order Comment: Speci men Type: BLOOD SPECIMENOrdering Facility: [facility] Address: [facility] [address] [place] [address] Performed By: #### 1 9123-9, 27701-07, ####[facility] LABORATORYCLIA [id number] [place] [id number] [place] CO2 [Moles/Vol] 27 mmol/L Normal 22-30 [facility] Comment on above: Order Comment: Speci men Type: BLOOD SPECIMENOrdering Facility: [facility] Address: [address] [place] [address] Performed By: #### 1 9123-9, 27701-07, ####[facility] LABORATORYCLIA [id number] [place] [id number] [place] Creatinine [Mass/Vol] 0.57 mg/dL Low 0.58-0.96 [facility] Comment on above: Order Comment: Speci men Type: BLOOD SPECIMENOrdering Facility: [facility] Address: [address] [place] [address] Performed By: #### 1 9123-9, 27771, 71373-9 ####[facility] LABORATORYCLIA [id number] [place] [address] [place] Creatinine and Glomerular filtration rate.predicted panel (S/P/Bld) 98 mL/min/1.73m??? Normal >=60 [facility] Comment on above: Order Comment: Mason simpson Type: BLOOD SPECIMENOrdering Facility: [facility] Address: [address] [place] [address] Result Comment: Farhana mated Glomerular Filtration Rate [...] GFR. Performed By: #### 1 9123-9, 2777-1, 83271-7 ####[facility] LABORATORYCLIA [id number] [place] [id number] [place] Glucose [Mass/Vol] 105 mg/dL High 74-99 [facility] Comment on above: Order Comment: Mason simpson Type: BLOOD SPECIMENOrdering Facility: [facility] Address: [address] [place] [address] Result Comment: The [place] Diabetes Association (ADA) provides guidance for cutoff [...] Standards of Medical Care in Diabetes 2016, [place] [employer]. Diabetes Care. 2016.39(Suppl 1). Performed By: #### 1 9123-9, 2777-1, 77388-0 ####[facility] LABORATORYCLIA [id number] [place] [id number] [place] Potassium [Moles/Vol] 3.7 mmol/L Normal 3.7-5.1 [facility] Comment on above: Order Comment: Speci men Type: BLOOD SPECIMENOrdering Facility: [facility] Address: [address] [place] [address] Performed By: #### 1 9123-9, 2777, 62891-1 ####[facility] LABORATORYCLIA [id number] [place] [id number] [place] Sodium [Moles/Vol] 141 mmol/L Normal 136-144 [facility] Comment on above: Order Comment: Speci men Type: BLOOD SPECIMENOrdering Facility: [facility] Address: [address] [place] [address] Performed By: #### 1 9123-9, 27701-07, ####[facility] LABORATORYCLIA [id number] [place] [address] [place] Urea nitrogen [Mass/Vol] 10 mg/dL Normal 7-21 [facility] Comment on above: Order Comment: Speci men Type: BLOOD SPECIMENOrdering Facility: [facility] Address: [address] [place] [address] Performed By: #### 1 9123-9, 27701-07, ####[facility] LABORATORYCLIA [id number] [place] [id number] [place] CBC panel Auto (Bld)on 09-03 Erythrocyte distribution width (RBC) [Ratio] 14.3 % Normal 11.5-15.0 [facility] Comment on above: Order Comment: Speci men Type: BLOOD SPECIMENOrdering Facility: [facility] Address: [address] [place] [address] Performed By: #### 5 8410-2 ####[facility] LABORATORYCLIA [id number] [place] [id number] [place] Hematocrit (Bld) [Volume fraction] 30.5 % Low 36.0-46.0 [facility] Comment on above: Order Comment: Speci men Type: BLOOD SPECIMENOrdering Facility: [facility] Address: [address] [place] [address] Performed By: #### 5 8410-2 ####[facility] LABORATORYCLIA [id number] [address] [place] Hemoglobin (Bld) [Mass/Vol] 10.1 g/dL Low 11.5-15.5 [facility] Comment on above: Order Comment: Speci men Type: BLOOD SPECIMENOrdering Facility: [facility] Address: [address] [place] [address] Performed By: #### 5 8410-2 ####[facility] LABORATORYCLIA [id number] [address] [place] MCH (RBC) [Entitic mass] 29.4 pg Normal 26.0-34.0 [facility] Comment on above: Order Comment: Speci men Type: BLOOD SPECIMENOrdering Facility: [facility] Address: [address] [place] [address] Performed By: #### 5 8410-2 ####[facility] LABORATORYCLIA [id number] [address] MCHC (RBC) [Mass/Vol] 33.1 g/dL Normal 30.5-36.0 [facility] Comment on above: Order Comment: Speci men Type: BLOOD SPECIMENOrdering Facility: [facility] Address: [address] [place] [address] Performed By: #### 5 8410-2 ####[facility] LABORATORYCLIA [id number] [address] [place] MCV (RBC) [Entitic vol] 88.9 fL Normal 80.0-100.0 [facility] Comment on above: Order Comment: Speci men Type: BLOOD SPECIMENOrdering Facility: [facility] Address: [address] [place] [address] Performed By: #### 5 8410-2 ####[facility]ORATORYCLIA [id number] [address] [place] Nucleated RBC (Bld) [#/Vol] 10*3/uL Normal <0.01 [facility] Comment on above: Order Comment: Speci men Type: BLOOD SPECIMENOrdering Facility: [facility] Address: [address] [place] [address] Performed By: #### 5 8410-2 ####[facility] LABORATORYCLIA [id number] [place] [id number] [place] Platelet mean volume (Bld) [Entitic vol] 8.7 fL Low 9.0-12.7 [facility] Comment on above: Order Comment: Speci men Type: BLOOD SPECIMENOrdering Facility: [facility] Address: [address] [place] [address] Performed By: #### 5 8410-2 ####[facility] LABORATORYCLIA [id number] [place] [address] [place] Platelets (Bld) [#/Vol] 306 10*3/uL Normal 150-400 [facility] Comment on above: Order Comment: Speci men Type: BLOOD SPECIMENOrdering Facility: [facility] Address: [address] [place] [address] Performed By: #### 5 8410-2 ####[facility] LABORATORYCLIA [id number] [place] [address] [place] RBC (Bld) [#/Vol] 3.43 10*6/uL Low 3.90-5.20 [facility] Comment on above: Order Comment: Speci men Type: BLOOD SPECIMENOrdering Facility: [facility] Address: [address] [place] [address] Performed By: #### 5 8410-2 ####[facility] LABORATORYCLIA [id number] [place] [id number] [place] WBC (Bld) [#/Vol] 5.15 10*3/uL Normal 3.70-11.00 [facility] Comment on above: Order Comment: Speci men Type: BLOOD SPECIMENOrdering Facility: [facility] Address: [address] [place] [address] Performed By: #### 5 8410-2 ####[facility] LABORATORYCLIA [id number] [place] [id number] [place] Erythrocyte distribution wid th Auto (RBC) [Ratio]on 09-03-2023 Erythrocyte distribution width (RBC) [Ratio] 14.3 % 11.5-15.0 [facility] Hematocrit Auto (Bld) [Volum e fraction]on 09-03-2023 Hematocrit (Bld) [Volume fraction] 30.5 % 36.0-46.0 [facility] Hemoglobin [Mass/volume] in Bloodon 09-03-2023 Hemoglobin (Bld) [Mass/Vol] 10.1 g/dL 11.5-15.5 [facility] Laboratory - Chemistry and C hemistry - challengeon 09-03-2023 Calcium [Mass/Vol] 8.9 mg/dL 8.5-10.2 [facility] Chloride [Moles/Vol] 105 mmol/L 97-105 [facility] CO2 [Moles/Vol] 27 mmol/L 22-30 [facility] Creatinine [Mass/Vol] 0.57 mg/dL 0.58-0.96 [facility] Glucose [Mass/Vol] 105 mg/dL 74-99 [facility] Comment on above: The [place] Diabete s Association (ADA) provides guidance for [...] Standards of Medical Care in Diabetes 2016, [place] Diabetes Association. Diabetes Care. 2016.39(Suppl 1). Magnesium [Mass/Vol] 1.9 mg/dL 1.7-2.3 [facility] Potassium [Moles/Vol] 3.7 mmol/L 3.7-5.1 [facility] Sodium [Moles/Vol] 141 mmol/L 136-144 [facility] Urea nitrogen [Mass/Vol] 10 mg/dL 7-21 [facility] Leukocytes [#/volume] correc french for nucleated erythrocytes in Blood by Automated counon 09-03-2023 WBC corrected for nucl RBC Auto (Bld) [#/Vol] 5.15 k/uL 3.70-11.00 [facility] MCH Auto (RBC) [Entitic mass ]on 09-03-2023 MCH (RBC) [Entitic mass] 29.4 pg 26.0-34.0 [facility] MCHC Auto (RBC) [Mass/Vol]on 09-03-2023 MCHC (RBC) [Mass/Vol] 33.1 g/dL 30.5-36.0 [facility] MCV Auto (RBC) [Entitic vol] on 09-03-2023 MCV (RBC) [Entitic vol] 88.9 fL 80.0-100.0 [facility] Magnesium SerPl-mCncon 09-03 Magnesium [Mass/Vol] 1.9 mg/dL Normal 1.7-2.3 [facility] Comment on above: Order Comment: Speci men Type: BLOOD SPECIMENOrdering Facility: [facility] Address: [address] [place] [address] Performed By: #### 1 9123-9, 2777-1, 54945-6 ####[facility] LABORATORYCLIA [id number] [place] [address] [place] NURSING PROGon 09-03-2023 NURSING PROG Normal [facility] No Panel Informationon 09-03 Estimated GFR (CKD-EPI) 98 mL/min/1.73m??? >=60 [facility] Comment on above: Estimated Glomerular Filtration [...] actual GFR. Phosphorus Level 3.7 mg/dL 2.7-4.[address] [facility] Nucleated RBC Auto (Bld) [#/ Vol]on 09-03-2023 Nucleated RBC (Bld) [#/Vol] 10*3/uL <0.01 [facility] Phosphate SerPl-mCncon 09-03 Phosphate [Mass/Vol] 3.7 mg/dL Normal 2.7-4.8 [facility] Comment on above: Order Comment: Speci men Type: BLOOD SPECIMENOrdering Facility: [facility] Address: [address] [place] [address] Performed By: #### 1 9123-9, 2777-1, 18446-7 ####[facility] LABORATORYCLIA [id number] [place] [id number] [place] Platelet mean volume Auto (B ld) [Entitic vol]on 09-03-2023 Platelet mean volume (Bld) [Entitic vol] 8.7 fL 9.0-12.7 [facility] Platelets Auto (Bld) [#/Vol] on 09-03-2023 Platelets (Bld) [#/Vol] 306 10*3/uL 150-400 [facility] RBC Auto (Bld) [#/Vol]on RBC (Bld) [#/Vol] 3.43 10*6/uL 3.90-5.20 [facility] Serum or plasma anion gap de terminationon 09-03-2023 Anion gap [Moles/Vol] 9 mmol/L 9-18 [facility] Basic metabolic 2000 panelon 09-02-2023 Anion gap [Moles/Vol] 13 mmol/L Normal 9-18 [facility] Comment on above: Order Comment: Speci men Type: BLOOD SPECIMENOrdering Facility: [facility] Address: [address] [place] [address] Performed By: #### 2 777-1, 19002-3, 05692-3 ####[facility] LABORATORYCLIA [id number] [place] [id number] [place] Calcium [Mass/Vol] 8.7 mg/dL Normal 8.5-10.2 [facility] Comment on above: Order Comment: Speci men Type: BLOOD SPECIMENOrdering Facility: [facility] Address: [address] [place] [address] Performed By: #### 2 777-1, 92039-5, ####[facility] LABORATORYCLIA [id number] [place] [address] [place] Chloride [Moles/Vol] 106 mmol/L High 97-105 [facility] Comment on above: Order Comment: Speci men Type: BLOOD SPECIMENOrdering Facility: [facility] Address: [address] [place] [address] Performed By: #### 2 777-1, 16523-1, ####[facility] LABORATORYCLIA [id number] [place] [id number] [place] CO2 [Moles/Vol] 26 mmol/L Normal 22-30 [facility] Comment on above: Order Comment: Speci men Type: BLOOD SPECIMENOrdering Facility: [facility] Address: [address] [place] [address] Performed By: #### 2 777-1, , ####[facility] LABORATORYCLIA [id number] [place] [id number] [place] Creatinine [Mass/Vol] 0.61 mg/dL Normal 0.58-0.96 [facility] Comment on above: Order Comment: Speci men Type: BLOOD SPECIMENOrdering Facility: [facility] Address: [address] [place] [address] Performed By: #### 2 777-1, , ####[facility] LABORATORYCLIA [id number] [place] [id number] [place] Creatinine and Glomerular filtration rate.predicted panel (S/P/Bld) 96 mL/min/1.73m??? Normal >=60 [facility] Comment on above: Order Comment: Speci men Type: BLOOD SPECIMENOrdering Facility: [facility] Address: [address] [place] [address] Result Comment: Farhana mated Glomerular Filtration Rate [...] GFR. Performed By: #### 2 777-1, , ####[facility] LABORATORYCLIA [id number] [place] [id number] [place] Glucose [Mass/Vol] 84 mg/dL Normal 74-99 [facility] Comment on above: Order Comment: Mason simpson Type: BLOOD SPECIMENOrdering Facility: [facility] Address: [address] [place] [address] Result Comment: The [place] Diabetes Association (ADA) provides guidance for cutoff [...] Standards of Medical Care in Diabetes 2016, [place] [employer]. Diabetes Care. 2016.39(Suppl 1). Performed By: #### 2 777-1, , ####[facility] LABORATORYCLIA [id number] [place] [id number] [place] Potassium [Moles/Vol] 3.5 mmol/L Low 3.7-5.1 [facility] Comment on above: Order Comment: Mason simpson Type: BLOOD SPECIMENOrdering Facility: [facility] Address: [address] [place] [address] Performed By: #### 2 777-1, , ####[facility] LABORATORYCLIA [id number] [place] [address] [place] Sodium [Moles/Vol] 145 mmol/L High 136-144 [facility] Comment on above: Order Comment: Speci men Type: BLOOD SPECIMENOrdering Facility: [facility] Address: [address] [place] [address] Performed By: #### 2 777-1, 61478-8, ####[facility] LABORATORYCLIA [id number] [place] [id number] [facility] Urea nitrogen [Mass/Vol] 22 mg/dL High 01-27 [facility] Comment on above: Order Comment: Speci men Type: BLOOD SPECIMENOrdering Facility: [facility] Address: [address] [place] [address] Performed By: #### 2 777-1, 40347-1, ####CORNELIUS LABORATORYCLIA [id number] [place] [id number] [facility] [place] CBC panel Auto (Bld)on 09-02 Erythrocyte distribution width (RBC) [Ratio] 14.6 % Normal 11.5-15.0 [facility] Comment on above: Order Comment: Speci men Type: BLOOD SPECIMENOrdering Facility: [facility] Address: [address] [place] [address] Performed By: #### 5 8410-2 ####CORNELIUS LABORATORYCLIA [id number] [place] [id number] [place] Hematocrit (Bld) [Volume fraction] 33.2 % Low 36.0-46.0 [facility] Comment on above: Order Comment: Speci men Type: BLOOD SPECIMENOrdering Facility: [facility] Address: [address] [place] [address] Performed By: #### 5 8410-2 ####[facility] LABORATORYCLIA [id number] [place] [id number] [place] Hemoglobin (Bld) [Mass/Vol] 10.8 g/dL Low 11.5-15.5 [facility] Comment on above: Order Comment: Speci men Type: BLOOD SPECIMENOrdering Facility: [facility] Address: [address] [place] [address] Performed By: #### 5 8410-2 ####[facility] LABORATORYCLIA [id number] [address] [place] [facility] MCH (RBC) [Entitic mass] 29.4 pg Normal 26.0-34.0 [facility] Comment on above: Order Comment: Speci men Type: BLOOD SPECIMENOrdering Facility: [facility] Address: [address] [place] [address] Performed By: #### 5 8410-2 ####[facility] LABORATORYCLIA [id number] [place] [address] [place] MCHC (RBC) [Mass/Vol] 32.5 g/dL Normal 30.5-36.0 [facility] Comment on above: Order Comment: Speci men Type: BLOOD SPECIMENOrdering Facility: [facility] Address: [address] [place] [address] Performed By: #### 5 8410-2 ####[facility] LABORATORYCLIA [id number] [address] [place] MCV (RBC) [Entitic vol] 90.5 fL Normal 80.0-100.0 [facility] Comment on above: Order Comment: Speci men Type: BLOOD SPECIMENOrdering Facility: [facility] Address: [address] [place] [address] Performed By: #### 5 8410-2 ####[facility] LABORATORYCLIA [id number] [address] [place] Nucleated RBC (Bld) [#/Vol] 10*3/uL Normal <0.01 [facility] Comment on above: Order Comment: Speci men Type: BLOOD SPECIMENOrdering Facility: [facility] Address: [address] [place] [address] Performed By: #### 5 8410-2 ####[facility] LABORATORYCLIA [id number] [address] [place] Platelet mean volume (Bld) [Entitic vol] 8.4 fL Low 9.0-12.7 [facility] Comment on above: Order Comment: Speci men Type: BLOOD SPECIMENOrdering Facility: [facility] Address: [address] [place] [address] Performed By: #### 5 8410-2 ####[facility] LABORATORYCLIA [id number] [place] [id number] [place] Platelets (Bld) [#/Vol] 290 10*3/uL Normal 150-400 [facility] Comment on above: Order Comment: Speci men Type: BLOOD SPECIMENOrdering Facility: [facility] Address: [address] [place] [address] Performed By: #### 5 8410-2 ####[facility] LABORATORYCLIA [id number] [place] [id number] [place] RBC (Bld) [#/Vol] 3.67 10*6/uL Low 3.90-5.20 [facility] Comment on above: Order Comment: Speci men Type: BLOOD SPECIMENOrdering Facility: [facility] Address: [address] [place] [address] Performed By: #### 5 8410-2 ####[facility] LABORATORYCLIA [id number] [place] [id number] [facility] WBC (Bld) [#/Vol] 5.87 10*3/uL Normal 3.70-11.00 [facility] Comment on above: Order Comment: Speci men Type: BLOOD SPECIMENOrdering Facility: [facility] Address: [address] [place] [address] Performed By: #### 5 8410-2 ####[facility] LABORATORYCLIA [id number] [place] [id number] [place] Erythrocyte distribution wid th Auto (RBC) [Ratio]on 09-02-2023 Erythrocyte distribution width (RBC) [Ratio] 14.6 % 11.5-15.0 [facility] Hematocrit Auto (Bld) [Volum e fraction]on 09-02-2023 Hematocrit (Bld) [Volume fraction] 33.2 % 36.0-46.0 [facility] Hemoglobin [Mass/volume] in Bloodon 09-02-2023 Hemoglobin (Bld) [Mass/Vol] 10.8 g/dL 11.5-15.5 [facility] Laboratory - Chemistry and C hemistry - challengeon 09-02-2023 Calcium [Mass/Vol] 8.7 mg/dL 8.5-10.2 [facility] Chloride [Moles/Vol] 106 mmol/L 97-105 [facility] CO2 [Moles/Vol] 26 mmol/L 22-30 [facility] Creatinine [Mass/Vol] 0.61 mg/dL 0.58-0.96 [facility] Glucose [Mass/Vol] 84 mg/dL 74-99 [facility] Comment on above: The [place] Diabete s Association (ADA) provides guidance for [...] Standards of Medical Care in Diabetes 2016, [place] [employer]. Diabetes Care. 2016.39(Suppl 1). Magnesium [Mass/Vol] 2.1 mg/dL 1.7-2.3 [facility] Potassium [Moles/Vol] 3.5 mmol/L 3.7-5.1 [facility] Sodium [Moles/Vol] 145 mmol/L 136-144 [facility] Urea nitrogen [Mass/Vol] 22 mg/dL 7-21 [facility] Leukocytes [#/volume] correc french for nucleated erythrocytes in Blood by Automated counon 09-02-2023 WBC corrected for nucl RBC Auto (Bld) [#/Vol] 5.87 k/uL 3.70-11.00 [facility] MCH Auto (RBC) [Entitic mass ]on 09-02-2023 MCH (RBC) [Entitic mass] 29.4 pg 26.0-34.0 [facility] MCHC Auto (RBC) [Mass/Vol]on 02-24-2024 MCHC (RBC) [Mass/Vol] 32.5 g/dL 30.5-36.0 [facility] MCV Auto (RBC) [Entitic vol] on 09-02-2023 MCV (RBC) [Entitic vol] 90.5 fL 80.0-100.0 [facility] Magnesium SerPl-mCncon 09-02 Magnesium [Mass/Vol] 2.1 mg/dL Normal 1.7-2.3 [facility] Comment on above: Order Comment: Speci men Type: BLOOD SPECIMENOrdering Facility: [facility] Address: [address] [place] [address] Performed By: #### 2 777-1, 66143-3, 69127-4 ####[facility] LABORATORYCLIA [id number] [address] OF [facility] NURSING PROGon 09-02-2023 NURSING PROG Normal [facility] No Panel Informationon 09-02 Estimated GFR (CKD-EPI) 96 mL/min/1.73m??? >=60 [facility] Comment on above: Estimated Glomerular Filtration [...] actual GFR. Phosphorus Level 3.5 mg/dL 2.7-4.[address] [facility] Nucleated RBC Auto (Bld) [#/ Vol]on 09-02-2023 Nucleated RBC (Bld) [#/Vol] 10*3/uL <0.01 [facility] Phosphate SerPl-mCncon 09-02 Phosphate [Mass/Vol] 3.5 mg/dL Normal 2.7-4.8 [facility] Comment on above: Order Comment: Speci men Type: BLOOD SPECIMENOrdering Facility: [facility] Address: [address] [place] [id number] Performed By: #### 2 777-1, 42440-7, ####[facility] LABORATORYCLIA [id number] [place] [id number] [place] Platelet mean volume Auto (B ld) [Entitic vol]on 09-02-2023 Platelet mean volume (Bld) [Entitic vol] 8.4 fL 9.0-12.7 [facility] Platelets Auto (Bld) [#/Vol] on 09-02-2023 Platelets (Bld) [#/Vol] 290 10*3/uL 150-400 [facility] RBC Auto (Bld) [#/Vol]on RBC (Bld) [#/Vol] 3.67 10*6/uL 3.90-5.20 [facility] Serum or plasma anion gap de terminationon 09-02-2023 Anion gap [Moles/Vol] 13 mmol/L 9-18 [facility] Basic metabolic 2000 panelon 09-01-2023 Anion gap [Moles/Vol] 13 mmol/L Normal -18 [facility] Comment on above: Order Comment: Speci men Type: BLOOD SPECIMENOrdering Facility: [facility] Address: [address] [place] [address] Performed By: #### 2 4321-2, 27701-07, ####[facility] LABORATORYCLIA [id number] [place] [id number] [place] Calcium [Mass/Vol] 8.8 mg/dL Normal 8.5-10.2 [facility] Comment on above: Order Comment: Speci men Type: BLOOD SPECIMENOrdering Facility: [facility] Address: [address] [place] [id number] Performed By: #### 2 4321-2, 2777-1, ####[facility] LABORATORYCLIA [id number] [place] [id number] [place] Chloride [Moles/Vol] 101 mmol/L Normal 97-105 [facility] Comment on above: Order Comment: Speci men Type: BLOOD SPECIMENOrdering Facility: [facility] Address: [address] [place] [address] Performed By: #### 2 4321-2, 2777, ####[facility] LABORATORYCLIA [id number] [place] [address] [place] CO2 [Moles/Vol] 27 mmol/L Normal 22-30 [facility] Comment on above: Order Comment: Speci men Type: BLOOD SPECIMENOrdering Facility: [facility] Address: [address] [place] [address] Performed By: #### 2 4321-2, 2776-07, ####[facility] LABORATORYCLIA [id number] [place] [address] [place] Creatinine [Mass/Vol] 0.77 mg/dL Normal 0.58-0.96 [facility] Comment on above: Order Comment: Speci men Type: BLOOD SPECIMENOrdering Facility: [facility] Address: [address] [place] [address] Performed By: #### 2 4321-2, 2776-07, ####[facility] LABORATORYCLIA [id number] [place] [id number] [place] Creatinine and Glomerular filtration rate.predicted panel (S/P/Bld) 83 mL/min/1.73m??? Normal >=60 [facility] Comment on above: Order Comment: Speci men Type: BLOOD SPECIMENOrdering Facility: [facility] Address: [address] [place] [address] Result Comment: Farhana mated Glomerular Filtration Rate [...] actual GFR. Performed By: #### 2 4321-2, 27701-07, ####[facility] LABORATORYCLIA [id number] [place] [address] [place] Glucose [Mass/Vol] 95 mg/dL Normal 74-99 [facility] Comment on above: Order Comment: Speci men Type: BLOOD SPECIMENOrdering Facility: [facility] Address: [address] [place], [place] [id number] Result Comment: The [place] Diabetes Association (ADA) provides guidance for cutoff [...] Standards of Medical Care in Diabetes 2016, [place] [employer] Association. Diabetes Care. 2016.39(Suppl 1). Performed By: #### 2 4321-2, 2776-07, ####[facility] LABORATORYCLIA [id number] [place] [address] [place] Potassium [Moles/Vol] 4.2 mmol/L Normal 3.7-5.1 [facility] Comment on above: Order Comment: Mason simpson Type: BLOOD SPECIMENOrdering Facility: [facility] Address: [address] [place] [address] Performed By: #### 2 4321-2, 2776-07, ####[facility] LABORATORYCLIA [id number] [place] [id number] [place] Sodium [Moles/Vol] 141 mmol/L Normal 136-144 [facility] Comment on above: Order Comment: Moyi men Type: BLOOD SPECIMENOrdering Facility: [facility] Address: [address] [place] [address] Performed By: #### 2 4321-2, 2776-07, ####[facility] LABORATORYCLIA [id number] [place] [address] [place] Urea nitrogen [Mass/Vol] 22 mg/dL High 7-21 [facility] Comment on above: Order Comment: Speci men Type: BLOOD SPECIMENOrdering Facility: [facility] Address: [address] [place] [address] Performed By: #### 2 4321-2, 2777-1, 49367-7 ####[facility] LABORATORYCLIA [id number] [place] [id number] [place] CASE MANAGEMon 09-01-2023 CASE MANAGEM Normal [facility] CBC panel Auto (Bld)on 09-01 Erythrocyte distribution width (RBC) [Ratio] 15.2 % High 11.5-15.0 [facility] Comment on above: Order Comment: Speci men Type: BLOOD SPECIMENOrdering Facility: [facility] Address: [address] [place] [address] Performed By: #### 5 8410-2 ####[facility] LABORATORYCLIA [id number] [address] [place] Hematocrit (Bld) [Volume fraction] 35.3 % Low 36.0-46.0 [facility] Comment on above: Order Comment: Speci men Type: BLOOD SPECIMENOrdering Facility: [facility] Address: [address] [place] [address] Performed By: #### 5 8410-2 ####[facility] LABORATORYCLIA [id number] [place] [id number] [place] Hemoglobin (Bld) [Mass/Vol] 11.8 g/dL Normal 11.5-15.5 [facility] Comment on above: Order Comment: Speci men Type: BLOOD SPECIMENOrdering Facility: [facility] Address: [address] [place] [address] Performed By: #### 5 8410-2 ####[facility] LABORATORYCLIA [id number] [place] [id number] [place] MCH (RBC) [Entitic mass] 29.6 pg Normal 26.0-34.0 [facility] Comment on above: Order Comment: Speci men Type: BLOOD SPECIMENOrdering Facility: [facility] Address: [address] [place] [address] Performed By: #### 5 8410-2 ####[facility] LABORATORYCLIA [id number] [place] [address] [place] MCHC (RBC) [Mass/Vol] 33.4 g/dL Normal 30.5-36.0 [facility] Comment on above: Order Comment: Speci men Type: BLOOD SPECIMENOrdering Facility: [facility] Address: [address] [place] [address] Performed By: #### 5 8410-2 ####[facility] LABORATORYCLIA [id number] [place] [address] [place] MCV (RBC) [Entitic vol] 88.7 fL Normal 80.0-100.0 [facility] Comment on above: Order Comment: Speci men Type: BLOOD SPECIMENOrdering Facility: [facility] Address: [address] [place] [address] Performed By: #### 5 8410-2 ####[facility] LABORATORYCLIA [id number] [place] [address] [place] Nucleated RBC (Bld) [#/Vol] 10*3/uL Normal <0.01 [facility] Comment on above: Order Comment: Speci men Type: BLOOD SPECIMENOrdering Facility: [facility] Address: [address] [place] [address] Performed By: #### 5 8410-2 ####[facility] LABORATORYCLIA [id number] [place] [address] [place] Platelet mean volume (Bld) [Entitic vol] 8.5 fL Low 9.0-12.7 [facility] Comment on above: Order Comment: Speci men Type: BLOOD SPECIMENOrdering Facility: [facility] Address: [address] [place] [address] Performed By: #### 5 8410-2 ####[facility] LABORATORYCLIA [id number] [place] [address] [place] Platelets (Bld) [#/Vol] 297 10*3/uL Normal 150-400 [facility] Comment on above: Order Comment: Speci men Type: BLOOD SPECIMENOrdering Facility: [facility] Address: [address] [place] [address] [place] [address] Performed By: #### 5 8410-2 ####[facility] LABORATORYCLIA [id number] [place] [id number] [place] RBC (Bld) [#/Vol] 3.98 10*6/uL Normal 3.90-5.20 [facility] Comment on above: Order Comment: Speci men Type: BLOOD SPECIMENOrdering Facility: [facility] Address: [facility] [address] [place] [address] Performed By: #### 5 8410-2 ####[facility] LABORATORYCLIA [id number] [place] [id number] [place] WBC (Bld) [#/Vol] 5.99 10*3/uL Normal 3.70-11.00 [facility] Comment on above: Order Comment: Speci men Type: BLOOD SPECIMENOrdering Facility: [facility] Address: [address] [place], [place] [address] [address] Performed By: #### 5 8410-2 ####[facility] LABORATORYCLIA [id number] [place] [id number] [place] Erythrocyte distribution wid th Auto (RBC) [Ratio]on 09-01-2023 Erythrocyte distribution width (RBC) [Ratio] 15.2 % 11.5-15.0 [facility] Hematocrit Auto (Bld) [Volum e fraction]on 09-01-2023 Hematocrit (Bld) [Volume fraction] 35.3 % 36.0-46.0 [facility] Hemoglobin [Mass/volume] in Bloodon 09-01-2023 Hemoglobin (Bld) [Mass/Vol] 11.8 g/dL 11.5-15.5 [facility] Laboratory - Chemistry and C hemistry - challengeon 09-01-2023 Calcium [Mass/Vol] 8.8 mg/dL 8.5-10.2 [facility] Chloride [Moles/Vol] 101 mmol/L 97-105 [facility] CO2 [Moles/Vol] 27 mmol/L 22-30 [facility] Creatinine [Mass/Vol] 0.77 mg/dL 0.58-0.96 [facility] Glucose [Mass/Vol] 95 mg/dL 74-99 [facility] Comment on above: The [place] Diabete s Association (ADA) provides guidance for [...] Standards of Medical Care in Diabetes 2016, [place] [employer] Association. Diabetes Care. 2016.39(Suppl 1). Magnesium [Mass/Vol] 2.2 mg/dL 1.7-2.3 [facility] Potassium [Moles/Vol] 4.2 mmol/L 3.7-5.1 [facility] Sodium [Moles/Vol] 141 mmol/L 136-144 [facility] Urea nitrogen [Mass/Vol] 22 mg/dL 7-21 [facility] Leukocytes [#/volume] correc french for nucleated erythrocytes in Blood by Automated counon 09-01-2023 WBC corrected for nucl RBC Auto (Bld) [#/Vol] 5.99 k/uL 3.70-11.00 [facility] MCH Auto (RBC) [Entitic mass ]on 09-01-2023 MCH (RBC) [Entitic mass] 29.6 pg 26.0-34.0 [facility] MCHC Auto (RBC) [Mass/Vol]on 09-01-2023 MCHC (RBC) [Mass/Vol] 33.4 g/dL 30.5-36.0 [facility] MCV Auto (RBC) [Entitic vol] on 09-01-2023 MCV (RBC) [Entitic vol] 88.7 fL 80.0-100.0 [facility] Magnesium SerPl-mCncon 09-01 Magnesium [Mass/Vol] 2.2 mg/dL Normal 1.7-2.3 [facility] Comment on above: Order Comment: Mason simpson Type: BLOOD SPECIMENOrdering Facility: [facility] Address: [address] [place] [id number] Performed By: #### 2 4321-2, 2776-, ####[facility] LABORATORYCLIA [id number] [place] [id number] [place] No Panel Informationon 09-01 Estimated GFR (CKD-EPI) 83 mL/min/1.73m??? >=60 [facility] Comment on above: Estimated Glomerular Filtration [...] actual GFR. Phosphorus Level 4.3 mg/dL 2.7-4.[address] [facility] Nucleated RBC Auto (Bld) [#/ Vol]on 09-01-2023 Nucleated RBC (Bld) [#/Vol] 10*3/uL <0.01 [facility] Phosphate SerPl-mCncon 09-01 Phosphate [Mass/Vol] 4.3 mg/dL Normal 2.7-4.8 [facility] Comment on above: Order Comment: Mason simpson Type: BLOOD SPECIMENOrdering Facility: [facility] Address: [address] [place] [address] Performed By: #### 2 4321-2, 2776-07, ####[facility] LABORATORYCLIA [id number] [place] [id number] [place] Platelet mean volume Auto (B ld) [Entitic vol]on 09-01-2023 Platelet mean volume (Bld) [Entitic vol] 8.5 fL 9.0-12.7 [facility] Platelets Auto (Bld) [#/Vol] on 09-01-2023 Platelets (Bld) [#/Vol] 297 10*3/uL 150-400 [facility] RBC Auto (Bld) [#/Vol]on RBC (Bld) [#/Vol] 3.98 10*6/uL 3.90-5.20 [facility] Serum or plasma anion gap de terminationon 09-01-2023 Anion gap [Moles/Vol] 13 mmol/L 9-18 [facility] ALLIED HEALTHon 08-31-2023 ALLIED HEALTH Normal [facility] ALLIED HEALTH Normal [facility] Automated epithelial cells c ount in urine sediment (number/area)on 08-31-2023 Epithelial cells Auto (Urine sed) [#/Area] Few [HPF] [facility] Automated leukocytes count i n urine sediment (number/area)on 08-31-2023 WBC Auto (Urine sed) [#/Area] 3-5 /HPF 0-3 /HPF [facility] Automated urine hyaline cast s count (number/volume)on 08-31-2023 Hyaline casts Auto (U) [#/Vol] 4-10 /LPF 0 /LPF [facility] Automated urine specific gra vity by refractometryon 08-31-2023 Specific gravity Refractometry automated (U) [Rel density] >1.050 1.005-1.[address] [facility] Basophils Auto (Bld) [#/Vol] on 08-31-2023 Basophils (Bld) [#/Vol] 10*3/uL <0.11 [facility] Basophils/100 WBC Auto (Bld) on 08-31-2023 Basophils/100 WBC (Bld) 0.2 % [facility] Bilirubin Auto test strip (U ) [Mass/Vol]on 08-31-2023 Bilirubin (U) [Mass/Vol] Negative Negative [facility] Blood manual differential co mment interpretation narrativeon 08-31-2023 Manual differential comment Ankush (Bld) [Interp] Auto [facility] CASE MGT INIT ASSESon 2023 CASE MGT INIT ASSES Normal [facility] CBC W Auto Differential pane l (Bld)on 08-31-2023 Basophils (Bld) [#/Vol] 10*3/uL Normal <0.11 [facility] Comment on above: Order Comment: Speci men Type: BLOOD SPECIMENOrdering Facility: [facility] Address: [address] [place] [address] Performed By: #### 5 7021-8 ####[facility] LABORATORYCLIA [id number] [place] [id number] [place] Basophils/100 WBC (Bld) 0.2 % Normal [facility] Comment on above: Order Comment: Speci men Type: BLOOD SPECIMENOrdering Facility: [facility] Address: [address] [place] [address] Performed By: #### 5 7021-8 ####[facility] LABORATORYCLIA [id number] [place] [address] [place] Differential cell count method Nom (Bld) Auto Normal [facility] Comment on above: Order Comment: Speci men Type: BLOOD SPECIMENOrdering Facility: [facility] Address: [address] [place] [address] Performed By: #### 5 7021-8 ####[facility] LABORATORYCLIA [id number] [place] [address] [place] Eosinophils (Bld) [#/Vol] 0.09 10*3/uL Normal <0.46 [facility] Comment on above: Order Comment: Speci men Type: BLOOD SPECIMENOrdering Facility: [facility] Address: [address] [place] [address] Performed By: #### 5 7021-8 ####[facility] LABORATORYCLIA [id number] [place] [id number] [place] Eosinophils/100 WBC (Bld) 1.0 % Normal [facility] Comment on above: Order Comment: Speci men Type: BLOOD SPECIMENOrdering Facility: [facility] Address: [address] [place] [address] Performed By: #### 5 7021-8 ####[facility] LABORATORYCLIA [id number] [place] [address] [place] Erythrocyte distribution width (RBC) [Ratio] 14.6 % Normal 11.5-15.0 [facility] Comment on above: Order Comment: Speci men Type: BLOOD SPECIMENOrdering Facility: [facility] Address: [address] [place] [address] Performed By: #### 5 7021-8 ####[facility] LABORATORYCLIA [id number] [place] [id number] [place] Hematocrit (Bld) [Volume fraction] 40.9 % Normal 36.0-46.0 [facility] Comment on above: Order Comment: Speci men Type: BLOOD SPECIMENOrdering Facility: [facility] Address: [address] [place] [address] Performed By: #### 5 7021-8 ####[facility] LABORATORYCLIA [id number] [place] [id number] [place] Hemoglobin (Bld) [Mass/Vol] 14.4 g/dL Normal 11.5-15.5 [facility] Comment on above: Order Comment: Speci men Type: BLOOD SPECIMENOrdering Facility: [facility] Address: [address] [place] [address] Performed By: #### 5 7021-8 ####[facility] LABORATORYCLIA [id number] [place] [address] [place] Immature granulocytes (Bld) [#/Vol] 0.08 10*3/uL Normal <0.10 [facility] Comment on above: Order Comment: Speci men Type: BLOOD SPECIMENOrdering Facility: [facility] Address: [address] [place] [address] Performed By: #### 5 7021-8 ####[facility] LABORATORYCLIA [id number] [place] [id number] [place] Immature granulocytes/100 WBC (Bld) 0.9 % Normal [facility] Comment on above: Order Comment: Speci men Type: BLOOD SPECIMENOrdering Facility: [facility] Address: [address] [place] [address] Performed By: #### 5 7021-8 ####[facility] LABORATORYCLIA [id number] [place] [id number] [place] Lymphocytes (Bld) [#/Vol] 1.06 10*3/uL Normal 1.00-4.00 [facility] Comment on above: Order Comment: Speci men Type: BLOOD SPECIMENOrdering Facility: [facility] Address: [address] [place] [address] Performed By: #### 5 7021-8 ####[facility] LABORATORYCLIA [id number] [place] [address] [place] Lymphocytes/100 WBC (Bld) 11.4 % Normal [facility] Comment on above: Order Comment: Speci men Type: BLOOD SPECIMENOrdering Facility: [facility] Address: [address] [place] [address] Performed By: #### 5 7021-8 ####[facility] LABORATORYCLIA [id number] [place] [address] [place] MCH (RBC) [Entitic mass] 29.8 pg Normal 26.0-34.0 [facility] Comment on above: Order Comment: Speci men Type: BLOOD SPECIMENOrdering Facility: [facility] Address: [address] [place] [address] Performed By: #### 5 7021-8 ####[facility] LABORATORYCLIA [id number] [place] [address] [place] MCHC (RBC) [Mass/Vol] 35.2 g/dL Normal 30.5-36.0 [facility] Comment on above: Order Comment: Speci men Type: BLOOD SPECIMENOrdering Facility: [facility] Address: [address] [place] [address] Performed By: #### 5 7021-8 ####[facility] LABORATORYCLIA [id number] [place] [id number] [place] MCV (RBC) [Entitic vol] 84.5 fL Normal 80.0-100.0 [facility] Comment on above: Order Comment: Speci men Type: BLOOD SPECIMENOrdering Facility: [facility] Address: [address] [place] [address] Performed By: #### 5 7021-8 ####[facility] LABORATORYCLIA [id number] [place] [address] [place] Monocytes (Bld) [#/Vol] 0.67 10*3/uL Normal <0.87 [facility] Comment on above: Order Comment: Speci men Type: BLOOD SPECIMENOrdering Facility: [facility] Address: [address] [place] [address] Performed By: #### 5 7021-8 ####[facility] LABORATORYCLIA [id number] [place] [id number] [place] Monocytes/100 WBC (Bld) 7.2 % Normal [facility] Comment on above: Order Comment: Speci men Type: BLOOD SPECIMENOrdering Facility: [facility] Address: [address] [place] [address] Performed By: #### 5 7021-8 ####[facility] LABORATORYCLIA [id number] [place] [address] [place] Neutrophils (Bld) [#/Vol] 7.36 10*3/uL Normal 1.45-7.50 [facility] Comment on above: Order Comment: Speci men Type: BLOOD SPECIMENOrdering Facility: [facility] Address: [address] [place] [address] Performed By: #### 5 7021-8 ####[facility] LABORATORYCLIA [id number] [place] [address] [place] Neutrophils/100 WBC (Bld) 79.3 % Normal [facility] Comment on above: Order Comment: Speci men Type: BLOOD SPECIMENOrdering Facility: [facility] Address: [address] [place] [address] Performed By: #### 5 7021-8 ####[facility] LABORATORYCLIA [id number] [place] [id number] [place] Nucleated RBC (Bld) [#/Vol] 10*3/uL Normal <0.01 [facility] Comment on above: Order Comment: Speci men Type: BLOOD SPECIMENOrdering Facility: [facility] Address: [address] [place] [address] Performed By: #### 5 7021-8 ####[facility] LABORATORYCLIA [id number] [place] [id number] [place] Nucleated RBC/100 WBC (Bld) [Ratio] 0.0 /100 WBC Normal [facility] Comment on above: Order Comment: Speci men Type: BLOOD SPECIMENOrdering Facility: [facility] Address: [address] [place] [address] Performed By: #### 5 7021-8 ####[facility] LABORATORYCLIA [id number] [place] [id number] [place] Platelet mean volume (Bld) [Entitic vol] 8.8 fL Low 9.0-12.7 [facility] Comment on above: Order Comment: Speci men Type: BLOOD SPECIMENOrdering Facility: [facility] Address: [address] [place] [address] Performed By: #### 5 7021-8 ####[facility] LABORATORYCLIA [id number] [place] [id number] [place] Platelets (Bld) [#/Vol] 411 10*3/uL High 150-400 [facility] Comment on above: Order Comment: Speci men Type: BLOOD SPECIMENOrdering Facility: [facility] Address: [address] [place] [address] Performed By: #### 5 7021-8 ####[facility] LABORATORYCLIA [id number] [place] [id number] [place] RBC (Bld) [#/Vol] 4.84 10*6/uL Normal 3.90-5.20 [facility] Comment on above: Order Comment: Speci men Type: BLOOD SPECIMENOrdering Facility: [facility] Address: [address] [place] [address] Performed By: #### 5 7021-8 ####[facility] LABORATORYCLIA [id number] [place] [id number] [place] WBC (Bld) [#/Vol] 9.28 10*3/uL Normal 3.70-11.00 [facility] Comment on above: Order Comment: Speci men Type: BLOOD SPECIMENOrdering Facility: [facility] Address: [address] [place] [address] Performed By: #### 5 7021-8 ####[facility] LABORATORYCLIA [id number] [place] [address] [place] CONSULTon 08-31-2023 CONSULT Normal [facility] CT ABD/PEL W IVCONon 024 CT ABD/PEL W IVCON Normal [facility] Color Auto (U)on 08-31-2023 Color (U) Yellow Yellow [facility] Comprehensive metabolic 2000 panelon 08-31-2023 Albumin [Mass/Vol] 4.6 g/dL Normal 3.9-4.9 [facility] Comment on above: Order Comment: Speci men Type: BLOOD SPECIMENOrdering Facility: [facility] Address: [address] [place] [address] Performed By: #### 1 9123-9, 27701-07, 98466-9 ####[facility] LABORATORYCLIA [id number] [place] [address] [place] ALP [Catalytic activity/Vol] 351 U/L High 34-123 [facility] Comment on above: Order Comment: Speci men Type: BLOOD SPECIMENOrdering Facility: [facility] Address: [address] [place] [address] Performed By: #### 1 9123-9, 2776-07, 57887-2 ####[facility] LABORATORYCLIA [id number] [place] [address] [place] ALT [Catalytic activity/Vol] 178 U/L High 7-38 [facility] Comment on above: Order Comment: Speci men Type: BLOOD SPECIMENOrdering Facility: [facility] Address: [address] [place] [address] Performed By: #### 1 9123-9, 27701-07, 73171-1 ####[facility] LABORATORYCLIA [id number] [place] [address] [place] Anion gap [Moles/Vol] 19 mmol/L High 9-18 [facility] Comment on above: Order Comment: Speci men Type: BLOOD SPECIMENOrdering Facility: [facility] Address: [address] [place] [address] Performed By: #### 1 9123-9, 2776-07, 71418-5 ####[facility] LABORATORYCLIA [id number] [place] [id number] [place] AST [Catalytic activity/Vol] 83 U/L High 13-35 [facility] Comment on above: Order Comment: Speci men Type: BLOOD SPECIMENOrdering Facility: [facility] Address: [facility] [place] [address] Performed By: #### 1 9123-9, 2776-07, 18378-9 ####[facility] LABORATORYCLIA [id number] [place] [id number] [place] Bilirubin [Mass/Vol] 0.5 mg/dL Normal 0.2-1.3 [facility] Comment on above: Order Comment: Speci men Type: BLOOD SPECIMENOrdering Facility: [facility] Address: [facility] [address] [place] [address] Performed By: #### 1 9123-9, 2776-07, 70047-2 ####[facility] LABORATORYCLIA [id number] [place] [id number] [place] Calcium [Mass/Vol] 10.0 mg/dL Normal 8.5-10.2 [facility] Comment on above: Order Comment: Speci men Type: BLOOD SPECIMENOrdering Facility: [facility] Address: [address] [place] [address] Performed By: #### 1 9123-9, 2776-07, 03665-4 ####[facility] LABORATORYCLIA [id number] [place] [id number] [place] Chloride [Moles/Vol] 85 mmol/L Low 97-105 [facility] Comment on above: Order Comment: Speci men Type: BLOOD SPECIMENOrdering Facility: [facility] Address: [facility] [place] [address] Performed By: #### 1 9123-9, 27701-07, 92619-6 ####[facility] LABORATORYCLIA [id number] [place] [id number] [place] CO2 [Moles/Vol] 21 mmol/L Low 22-30 [facility] Comment on above: Order Comment: Speci men Type: BLOOD SPECIMENOrdering Facility: [facility] Address: [address] [place] [address] Performed By: #### 1 9123-9, 2777-, 86904-2 ####[facility] LABORATORYCLIA [id number] [place] [id number] [place] Creatinine [Mass/Vol] 1.34 mg/dL High 0.58-0.96 [facility] Comment on above: Order Comment: Speci men Type: BLOOD SPECIMENOrdering Facility: [facility] Address: [address] [place] [address] Performed By: #### 1 9123-9, 27701-07, 53257-7 ####[facility] LABORATORYCLIA [id number] [place] [address] [place] [facility] Creatinine and Glomerular filtration rate.predicted panel (S/P/Bld) 43 mL/min/1.73m??? Low >=60 [facility] Comment on above: Order Comment: Speci men Type: BLOOD SPECIMENOrdering Facility: [facility] Address: [address] [place] [address] Result Comment: Farhana mated Glomerular Filtration Rate [...] GFR. Performed By: #### 1 9123-9, 2777, 95886-9 ####[facility]ORATORYCLIA [id number] [place] [id number] [place] Glucose [Mass/Vol] 159 mg/dL High 74-99 [facility] Comment on above: Order Comment: Speci men Type: BLOOD SPECIMENOrdering Facility: [facility] Address: [address] [place] [address] Result Comment: The [place] Diabetes Association (ADA) provides guidance for cutoff [...] Standards of Medical Care in Diabetes 2016, [place] [employer]. Diabetes Care. 2016.39(Suppl 1). Performed By: #### 1 9123-9, 2776-07, ####[facility] LABORATORYCLIA [id number] [place] [address] [place] Potassium [Moles/Vol] 4.2 mmol/L Normal 3.7-5.1 [facility] Comment on above: Order Comment: Mason simpson Type: BLOOD SPECIMENOrdering Facility: [facility] Address: [address] [place] [address] Performed By: #### 1 9123-9, 2776-07, ####[facility] LABORATORYCLIA [id number] [place] [id number] [place] Protein [Mass/Vol] 7.4 g/dL Normal 6.3-8.0 [facility] Comment on above: Order Comment: Moyi men Type: BLOOD SPECIMENOrdering Facility: [facility] Address: [address] [place] [address] Performed By: #### 1 9123-9, 2776-07, ####[facility] LABORATORYCLIA [id number] [place] [id number] [place] Sodium [Moles/Vol] 125 mmol/L Low 136-144 [facility] Comment on above: Order Comment: Moyi men Type: BLOOD SPECIMENOrdering Facility: [facility] Address: [address] [place] [address] Performed By: #### 1 9123-9, 2776-07, 23700-2 ####[facility] LABORATORYCLIA [id number] [place] [id number] [place] Urea nitrogen [Mass/Vol] 35 mg/dL High 01-27 [facility] Comment on above: Order Comment: Speci men Type: BLOOD SPECIMENOrdering Facility: [facility] Address: [address] [place] [address] Performed By: #### 1 9123-9, 2777-1, 85984-6 ####[facility] LABORATORYCLIA [id number] [place] [id number] [place] ECG COMPLETEon 08-31-2023 ECG COMPLETE Normal [facility] ED NOTEon 08-31-2023 ED NOTE HNO ID: [id number] Author: LYUBOV PEREA RN Service: ? Author Type: Registered Nurse Type: ED Notes Filed: 08/31/2023 12:07 Note Text: Report given to KAYA Monsalve. Normal [facility] ED NOTE HNO ID: [id number] Author: DANNIELLE MOLINA RN Service: ? Author Type: Registered Nurse Type: ED Notes Filed: 08/31/2023 09:15 Note Text: Bed: 25-ED Expected date: Expected time: Means of arrival: Comments: triage Normal [facility] ED PROV NOTEon 08-31-2023 ED PROV NOTE Normal [facility] Eosinophils/100 WBC Auto (Bl d)on 08-31-2023 Eosinophils/100 WBC (Bld) 1.0 % [facility] Erythrocyte distribution wid th Auto (RBC) [Ratio]on 08-31-2023 Erythrocyte distribution width (RBC) [Ratio] 14.6 % 11.5-15.0 [facility] HISTORY PHYSICALon HISTORY PHYSICAL Normal [facility] Hematocrit Auto (Bld) [Volum e fraction]on 08-31-2023 Hematocrit (Bld) [Volume fraction] 40.9 % 36.0-46.0 [facility] Hemoglobin [Mass/volume] in Bloodon 08-31-2023 Hemoglobin (Bld) [Mass/Vol] 14.4 g/dL 11.5-15.5 [facility] Ketones Auto test strip (U) [Mass/Vol]on 08-31-2023 Ketones (U) [Mass/Vol] Negative Negat Issa souza [facility] Laboratory - Chemistry and C hemistry - challengeon 08-31-2023 Albumin [Mass/Vol] 4.6 g/dL 3.9-4.9 [facility] ALP [Catalytic activity/Vol] 351 U/L 34-123 [facility] ALT [Catalytic activity/Vol] 178 U/L 7-38 [facility] AST [Catalytic activity/Vol] 83 U/L 13-35 [facility] Bilirubin [Mass/Vol] 0.5 mg/dL 0.2-1.3 [facility] Calcium [Mass/Vol] 10.0 mg/dL 8.5-10.2 [facility] Chloride [Moles/Vol] 85 mmol/L 97-105 [facility] CO2 [Moles/Vol] 21 mmol/L 22-30 [facility] Creatinine [Mass/Vol] 1.34 mg/dL 0.58-0.96 [facility] Glucose [Mass/Vol] 159 mg/dL 74-99 [facility] Comment on above: The [place] Diabete [place] Association (ADA) provides guidance for [...] Standards of Medical Care in Diabetes 2016, [place] [employer]. Diabetes Care. 2016.39(Suppl 1). Magnesium [Mass/Vol] 1.6 mg/dL 1.7-2.3 [facility] Potassium [Moles/Vol] 4.2 mmol/L 3.7-5.1 [facility] Protein [Mass/Vol] 7.4 g/dL 6.3-8.0 [facility] Sodium [Moles/Vol] 125 mmol/L 136-144 [facility] Urea nitrogen [Mass/Vol] 35 mg/dL 01-27 [facility] Laboratory - Hematology and Cell countson 08-31-2023 Eosinophils (Bld) [#/Vol] 0.09 10*3/uL <0.46 [facility] Immature granulocytes (Bld) [#/Vol] 0.08 10*3/uL <0.10 [facility] Immature granulocytes/100 WBC (Bld) 0.9 % [facility] Leukocytes [#/volume] correc french for nucleated erythrocytes in Blood by Automated counon 08-31-2023 WBC corrected for nucl RBC Auto (Bld) [#/Vol] 9.28 k/uL 3.70-11.00 [facility] Lymphocytes Auto (Bld) [#/Vo l]on 08-31-2023 Lymphocytes (Bld) [#/Vol] 1.06 10*3/uL 1.00-4.00 [facility] Lymphocytes/100 WBC Auto (Bl d)on 08-31-2023 Lymphocytes/100 WBC (Bld) 11.4 % [facility] MCH Auto (RBC) [Entitic mass ]on 08-31-2023 MCH (RBC) [Entitic mass] 29.8 pg 26.0-34.0 [facility] MCHC Auto (RBC) [Mass/Vol]on 08-31-2023 MCHC (RBC) [Mass/Vol] 35.2 g/dL 30.5-36.0 [facility] MCV Auto (RBC) [Entitic vol] on 08-31-2023 MCV (RBC) [Entitic vol] 84.5 fL 80.0-100.0 [facility] Magnesium SerPl-mCncon 08-31 Magnesium [Mass/Vol] 1.6 mg/dL Low 1.7-2.3 [facility] Comment on above: Order Comment: Speci men Type: BLOOD SPECIMENOrdering Facility: [facility] Address: [address] [place] [address] Performed By: #### 1 9123-9, 2777-1, 31234-7 ####[facility] LABORATORYCLIA [id number] [place] [address] [place] Monocytes Auto (Bld) [#/Vol] on 08-31-2023 Monocytes (Bld) [#/Vol] 0.67 10*3/uL <0.87 [facility] Monocytes/100 WBC Auto (Bld) on 08-31-2023 Monocytes/100 WBC (Bld) 7.2 % [facility] NURSING PROGon 08-31-2023 NURSING PROG Normal [facility] NURSING PROG Normal [facility] Neutrophils Auto (Bld) [#/Vo l]on 08-31-2023 Neutrophils (Bld) [#/Vol] 7.36 10*3/uL 1.45-7.50 [facility] Neutrophils/100 WBC Auto (Bl d)on 08-31-2023 Neutrophils/100 WBC (Bld) 79.3 % [facility] No Panel Informationon 08-31 Estimated GFR (CKD-EPI) 43 mL/min/1.73m??? >=60 [facility] Comment on above: Estimated Glomerular Filtration [...] actual GFR. Phosphorus Level 4.3 mg/dL 2.7-4.[address] [facility] Nucleated RBC Auto (Bld) [#/ Vol]on 08-31-2023 Nucleated RBC (Bld) [#/Vol] 10*3/uL <0.01 [facility] Nucleated erythrocytes [Pres ence] in Blood by Automated counton 08-31-2023 Nucleated RBC Auto Ql (Bld) 0.0 /100{WBC} [facility] Phosphate SerPl-mCncon 08-31 Phosphate [Mass/Vol] 4.3 mg/dL Normal 2.7-4.8 [facility] Comment on above: Order Comment: Speci men Type: BLOOD SPECIMENOrdering Facility: [facility] Address: [address] [place] [address] Performed By: #### 1 9123-9, 2777-1, 20192-5 ####[facility] LABORATORYCLIA [id number] [place] [address] [place] Platelet mean volume Auto (B ld) [Entitic vol]on 08-31-2023 Platelet mean volume (Bld) [Entitic vol] 8.8 fL 9.0-12.7 [facility] Platelets Auto (Bld) [#/Vol] on 08-31-2023 Platelets (Bld) [#/Vol] 411 10*3/uL 150-400 [facility] Protein Auto test strip (U) [Mass/Vol]on 08-31-2023 Protein (U) [Mass/Vol] Trace Trace , Negative [facility] RBC Auto (Bld) [#/Vol]on RBC (Bld) [#/Vol] 4.84 10*6/uL 3.90-5.20 [facility] Serum or plasma anion gap de terminationon 08-31-2023 Anion gap [Moles/Vol] 19 mmol/L 9-18 [facility] Specific gravity Auto test s trip (U) [Rel density]on 08-31-2023 Specific gravity (U) [Rel density] Clear Clear [facility] URINALYSIS, REFLEX MICROSCOP ICon 08-31-2023 Bacteria LM.HPF (Urine sed) [#/Area] Rare Abnormal None Seen [facility] Comment on above: Order Comment: Speci men Type: URINE SPECIMENOrdering Facility: [facility] Address: [address] [place] [address] Performed By: #### L [id number] ####[facility] LABORATORYCLIA [id number] [place] [address] [place] Bilirubin Ql (U) Negative Normal Negative [facility] Comment on above: Order Comment: Speci men Type: URINE SPECIMENOrdering Facility: [facility] Address: [address] [place] [address] Performed By: #### L [id number] ####[facility] LABORATORYCLIA [id number] [place] [address] [place] Clarity (Unsp spec) Clear Normal Clear [facility] Comment on above: Order Comment: Speci men Type: URINE SPECIMENOrdering Facility: [facility] Address: [address] [place] [address] Performed By: #### L [id number] ####[facility] LABORATORYCLIA [id number] [place] [address] [place] Color (U) Yellow Normal Yellow [facility] Comment on above: Order Comment: Speci men Type: URINE SPECIMENOrdering Facility: [facility] Address: [address] [place] [address] Performed By: #### L [id number] ####[facility] LABORATORYCLIA [id number] [place] [address] [place] Epithelial cells LM.HPF (Urine sed) [#/Area] Few Normal [facility] Comment on above: Order Comment: Speci men Type: URINE SPECIMENOrdering Facility: [facility] Address: [address] [place] [address] Performed By: #### L [id number] ####[facility] LABORATORYCLIA [id number] [place] [address] [place] Glucose Test strip (U) [Mass/Vol] Negative Normal Trace, Negative [facility] Comment on above: Order Comment: Speci men Type: URINE SPECIMENOrdering Facility: [facility] Address: [address] [place] [address] Performed By: #### L [id number] ####[facility] LABORATORYCLIA [id number] [place] [address] [place] Hemoglobin Ql (U) Trace Normal Negative, Trace [facility] Comment on above: Order Comment: Speci men Type: URINE SPECIMENOrdering Facility: [facility] Address: [address] [place] [address] Performed By: #### L [id number] ####[facility] LABORATORYCLIA [id number] [place] [address] [place] Hyaline casts (Urine sed) [#/Area] 4-10 /LPF Abnormal 0 /LPF [facility] Comment on above: Order Comment: Speci men Type: URINE SPECIMENOrdering Facility: [facility] Address: [address] [place] [address] Performed By: #### L [id number] ####[facility]ORATORYCLIA [id number] [place] [address] [place] Ketones Ql (U) Negative Normal Negative, Trace [facility] Comment on above: Order Comment: Speci men Type: URINE SPECIMENOrdering Facility: [facility] Address: [address] [place] [address] Performed By: #### L [id number] ####[facility] LABORATORYCLIA [id number] [address] Leukocyte esterase Test strip Ql (U) Negative Normal Negative, 25 Melody/uL [facility] Comment on above: Order Comment: Speci men Type: URINE SPECIMENOrdering Facility: [facility] Address: [address] [place] [address] Performed By: #### L [id number] ####[facility] LABORATORYCLIA [id number] [place] [address] [place] Nitrite Ql (U) Negative Normal Negative [facility] Comment on above: Order Comment: Speci men Type: URINE SPECIMENOrdering Facility: [facility] Address: [address] [place] [address] Performed By: #### L [id number] ####[facility] LABORATORYCLIA [id number] [place] [address] [place] pH (U) 6.0 [pH] Normal 5.0-8.0 [facility] Comment on above: Order Comment: Speci men Type: URINE SPECIMENOrdering Facility: [facility] Address: [address] [place] [address] Performed By: #### L [id number] ####[facility]ORATORYCLIA [id number] [place] [address] [place] Protein (U) [Mass/Vol] Trace Normal Trace , Negative [facility] Comment on above: Order Comment: Speci men Type: URINE SPECIMENOrdering Facility: [facility] Address: [address] [place] [address] Performed By: #### L [id number] ####[facility] LABORATORYCLIA [id number] [place] [address] [place] RBC LM.HPF (Urine sed) [#/Area] 3-5 /HPF Abnormal 0-3 /HPF [facility] Comment on above: Order Comment: Speci men Type: URINE SPECIMENOrdering Facility: [facility] Address: [address] [place] [address] Performed By: #### L [id number] ####[facility] LABORATORYCLIA [id number] [place] [address] [place] Specific gravity (U) [Rel density] >1.050 High 1.005-1.03 0 [facility] Comment on above: Order Comment: Speci men Type: URINE SPECIMENOrdering Facility: [facility] Address: [address] [place] [address] Performed By: #### L [id number] ####[facility] LABORATORYCLIA [id number] [place] [address] [place] Urobilinogen Ql (U) Normal Normal Normal [facility] Comment on above: Order Comment: Speci men Type: URINE SPECIMENOrdering Facility: [facility] Address: [address] [place] [address] Performed By: #### L [id number] ####[facility] LABORATORYCLIA [id number] [place] [address] [place] WBC LM.HPF (Urine sed) [#/Area] 0-5 /HPF Normal 0-5 /HPF [facility] Comment on above: Order Comment: Speci men Type: URINE SPECIMENOrdering Facility: [facility] Address: [address] [place] [address] Performed By: #### L [id number] ####[facility] LABORATORYCLIA [id number] [place] [address] [place] Urine bacteria detection by automated methodon 08-31-2023 Bacteria Auto Ql (U) Rare [HPF] None Seen [facility] Urine glucose measurement by test strip (mass/volume)on 08-31-2023 Glucose Test strip (U) [Mass/Vol] Negative Trace, Negative [facility] Urine hemoglobin detection b y automated test stripon 08-31-2023 Hemoglobin Auto test strip Ql (U) Trace Negative, Trace [facility] [facility] Urine nitrite detection by a utomated test stripon 08-31-2023 Nitrite Auto test strip Ql (U) Negative Negative [facility] Urine sediment leukocyte cou nt by microscopy (number/high power field)on 08-31-2023 WBC LM.HPF (Urine sed) [#/Area] 0-5 /HPF 0-5 /HPF [facility] Urobilinogen Auto test strip (U) [Mass/Vol]on 08-31-2023 Urobilinogen (U) [Mass/Vol] Normal Normal [facility] XR ABDOMEN 1V SUPINEon 08-31 XR ABDOMEN 1V SUPINE Normal [facility] pH Auto test strip (U)on pH (U) 6.0 [pH] 5.0-8.0 [facility] Basic metabolic 2000 panelon 08-30-2023 Anion gap [Moles/Vol] 10 mmol/L Normal 9-18 [facility] Comment on above: Order Comment: Speci men Type: BLOOD SPECIMENOrdering Facility: [facility] Address: [address] [place] [address] Performed By: #### 2 4321-2 ####[facility] LABORATORYCLIA [id number] [place] [address] [place] Calcium [Mass/Vol] 9.5 mg/dL Normal 8.5-10.2 [facility] Comment on above: Order Comment: Speci men Type: BLOOD SPECIMENOrdering Facility: [facility] Address: [address] [place] [address] Performed By: #### 2 4321-2 ####[facility] LABORATORYCLIA [id number] [place] [id number] [place] Chloride [Moles/Vol] 100 mmol/L Normal 97-105 [facility] Comment on above: Order Comment: Speci men Type: BLOOD SPECIMENOrdering Facility: [facility] Address: [address] [place] [address] Performed By: #### 2 4321-2 ####[facility] LABORATORYCLIA [id number] [place] [id number] [place] CO2 [Moles/Vol] 24 mmol/L Normal 22-30 [facility] Comment on above: Order Comment: Speci men Type: BLOOD SPECIMENOrdering Facility: [facility] Address: [address] [place] [address] Performed By: #### 2 4321-2 ####[facility] LABORATORYCLIA [id number] [place] [id number] [place] Creatinine [Mass/Vol] 0.63 mg/dL Normal 0.58-0.96 [facility] Comment on above: Order Comment: Speci men Type: BLOOD SPECIMENOrdering Facility: [facility] Address: [address] [place] [address] Performed By: #### 2 4321-2 ####[facility] LABORATORYCLIA [id number] [address] [place] Creatinine and Glomerular filtration rate.predicted panel (S/P/Bld) 96 mL/min/1.73m??? Normal >=60 [facility] Comment on above: Order Comment: Speci men Type: BLOOD SPECIMENOrdering Facility: [facility] Address: [address] [place] [address] Result Comment: Farhana mated Glomerular Filtration Rate [...] actual GFR. Performed By: #### 2 4321-2 ####[facility] LABORATORYCLIA [id number] [place] [id number] [place] Glucose [Mass/Vol] 119 mg/dL High 74-99 [facility] Comment on above: Order Comment: Speci men Type: BLOOD SPECIMENOrdering Facility: [facility] Address: [address] [place] [address] Result Comment: The [place] Diabetes Association (ADA) provides guidance for cutoff [...] Standards of Medical Care in Diabetes 2016, [place] [employer]. Diabetes Care. 2016.39(Suppl 1). Performed By: #### 2 4321-2 ####[facility] LABORATORYCLIA [id number] [place] [address] [place] Potassium [Moles/Vol] 4.2 mmol/L Normal 3.7-5.1 [facility] Comment on above: Order Comment: Speci men Type: BLOOD SPECIMENOrdering Facility: [facility] Address: [address] [place] [address] Performed By: #### 2 4321-2 ####[facility] LABORATORYCLIA [id number] [place] [address] [place] Sodium [Moles/Vol] 134 mmol/L Low 136-144 [facility] Comment on above: Order Comment: Speci men Type: BLOOD SPECIMENOrdering Facility: [facility] Address: [address] [place] [address] Performed By: #### 2 4321-2 ####[facility] LABORATORYCLIA [id number] [place] [address] [place] Urea nitrogen [Mass/Vol] 21 mg/dL Normal 7-21 [facility] Comment on above: Order Comment: Speci men Type: BLOOD SPECIMENOrdering Facility: [facility] Address: [address] [place] [address] Performed By: #### 2 4321-2 ####[facility] LABORATORYCLIA [id number] [place] [address] [place] Basophils Auto (Bld) [#/Vol] on 08-30-2023 Basophils (Bld) [#/Vol] 0.03 10*3/uL <0.11 [facility] Basophils/100 WBC Auto (Bld) on 08-30-2023 Basophils/100 WBC (Bld) 0.4 % [facility] Blood manual differential co mment interpretation narrativeon 08-30-2023 Manual differential comment Ankush (Bld) [Interp] Auto [facility] CASE MANAGEMon 08-30-2023 CASE MANAGEM Normal [facility] CBC W Auto Differential pane l (Bld)on 08-30-2023 Basophils (Bld) [#/Vol] 0.03 10*3/uL Normal <0.11 [facility] Comment on above: Order Comment: Speci men Type: BLOOD SPECIMENOrdering Facility: [facility] Address: [address] [place] [address] Performed By: #### 5 7021-8 ####[facility] LABORATORYCLIA [id number] [place] [address] [place] Basophils/100 WBC (Bld) 0.4 % Normal [facility] Comment on above: Order Comment: Speci men Type: BLOOD SPECIMENOrdering Facility: [facility] Address: [address] [place] [address] Performed By: #### 5 7021-8 ####[facility] LABORATORYCLIA [id number] [place] [address] [place] Differential cell count method Nom (Bld) Auto Normal [facility] Comment on above: Order Comment: Speci men Type: BLOOD SPECIMENOrdering Facility: [facility] Address: [address] [place] [address] Performed By: #### 5 7021-8 ####[facility] LABORATORYCLIA [id number] [place] [address] [place] Eosinophils (Bld) [#/Vol] 0.46 10*3/uL High <0.46 [facility] Comment on above: Order Comment: Speci men Type: BLOOD SPECIMENOrdering Facility: [facility] Address: [address] [place] [address] Performed By: #### 5 7021-8 ####[facility] LABORATORYCLIA [id number] [place] [address] [place] Eosinophils/100 WBC (Bld) 6.5 % Normal [facility] Comment on above: Order Comment: Speci men Type: BLOOD SPECIMENOrdering Facility: [facility] Address: [address] [place] [address] Performed By: #### 5 7021-8 ####[facility] LABORATORYCLIA [id number] [address] [place] Erythrocyte distribution width (RBC) [Ratio] 15.1 % High 11.5-15.0 [facility] Comment on above: Order Comment: Speci men Type: BLOOD SPECIMENOrdering Facility: [facility] Address: [address] [place] [address] Performed By: #### 5 7021-8 ####[facility] LABORATORYCLIA [id number] [place] [address] [place] Hematocrit (Bld) [Volume fraction] 37.5 % Normal 36.0-46.0 [facility] Comment on above: Order Comment: Speci men Type: BLOOD SPECIMENOrdering Facility: [facility] Address: [address] [place] [address] Performed By: #### 5 7021-8 ####[facility] LABORATORYCLIA [id number] [place] [address] [place] Hemoglobin (Bld) [Mass/Vol] 12.6 g/dL Normal 11.5-15.5 [facility] Comment on above: Order Comment: Speci men Type: BLOOD SPECIMENOrdering Facility: [facility] Address: [address] [place] [address] Performed By: #### 5 7021-8 ####[facility] LABORATORYCLIA [id number] [place] [address] [place] Immature granulocytes (Bld) [#/Vol] 0.03 10*3/uL Normal <0.10 [facility] Comment on above: Order Comment: Speci men Type: BLOOD SPECIMENOrdering Facility: [facility] Address: [address] [place] [address] Performed By: #### 5 7021-8 ####[facility] LABORATORYCLIA [id number] [address] Immature granulocytes/100 WBC (Bld) 0.4 % Normal [facility] Comment on above: Order Comment: Speci men Type: BLOOD SPECIMENOrdering Facility: [facility] Address: [address] [place] [address] Performed By: #### 5 7021-8 ####[facility] LABORATORYCLIA [id number] [address] Lymphocytes (Bld) [#/Vol] 1.01 10*3/uL Normal 1.00-4.00 [facility] Comment on above: Order Comment: Speci men Type: BLOOD SPECIMENOrdering Facility: [facility] Address: [address] [place] [address] Performed By: #### 5 7021-8 ####[facility] LABORATORYCLIA [id number] [address] Lymphocytes/100 WBC (Bld) 14.2 % Normal [facility] Comment on above: Order Comment: Speci men Type: BLOOD SPECIMENOrdering Facility: [facility] Address: [address] [place] [address] Performed By: #### 5 7021-8 ####[facility] LABORATORYCLIA [id number] [address] [place] MCH (RBC) [Entitic mass] 29.6 pg Normal 26.0-34.0 [facility] Comment on above: Order Comment: Speci men Type: BLOOD SPECIMENOrdering Facility: [facility] Address: [address] [place] [address] Performed By: #### 5 7021-8 ####[facility] LABORATORYCLIA [id number] [place] [address] [place] MCHC (RBC) [Mass/Vol] 33.6 g/dL Normal 30.5-36.0 [facility] Comment on above: Order Comment: Speci men Type: BLOOD SPECIMENOrdering Facility: [facility] Address: [address] [place] [address] Performed By: #### 5 7021-8 ####[facility] LABORATORYCLIA [id number] [place] [id number] [place] MCV (RBC) [Entitic vol] 88.0 fL Normal 80.0-100.0 [facility] Comment on above: Order Comment: Speci men Type: BLOOD SPECIMENOrdering Facility: [facility] Address: [address] [place] [address] Performed By: #### 5 7021-8 ####[facility] LABORATORYCLIA [id number] [place] [address] [place] Monocytes (Bld) [#/Vol] 0.70 10*3/uL Normal <0.87 [facility] Comment on above: Order Comment: Speci men Type: BLOOD SPECIMENOrdering Facility: [facility] Address: [address] [place] [address] Performed By: #### 5 7021-8 ####[facility] LABORATORYCLIA [id number] [place] [address] [place] Monocytes/100 WBC (Bld) 9.8 % Normal [facility] Comment on above: Order Comment: Speci men Type: BLOOD SPECIMENOrdering Facility: [facility] Address: [address] [place] [address] Performed By: #### 5 7021-8 ####[facility] LABORATORYCLIA [id number] [place] [id number] [place] Neutrophils (Bld) [#/Vol] 4.89 10*3/uL Normal 1.45-7.50 [facility] Comment on above: Order Comment: Speci men Type: BLOOD SPECIMENOrdering Facility: [facility] Address: [address] [place] [address] Performed By: #### 5 7021-8 ####[facility] LABORATORYCLIA [id number] [place] [id number] [place] Neutrophils/100 WBC (Bld) 68.7 % Normal [facility] Comment on above: Order Comment: Speci men Type: BLOOD SPECIMENOrdering Facility: [facility] Address: [address] [place] [address] Performed By: #### 5 7021-8 ####[facility] LABORATORYCLIA [id number] [place] [id number] [place] Nucleated RBC (Bld) [#/Vol] 10*3/uL Normal <0.01 [facility] Comment on above: Order Comment: Speci men Type: BLOOD SPECIMENOrdering Facility: [facility] Address: [address] [place] [address] Performed By: #### 5 7021-8 ####[facility] LABORATORYCLIA [id number] [place] [address] [place] Nucleated RBC/100 WBC (Bld) [Ratio] 0.0 /100 WBC Normal [facility] Comment on above: Order Comment: Speci men Type: BLOOD SPECIMENOrdering Facility: [facility] Address: [address] [place] [address] Performed By: #### 5 7021-8 ####[facility] LABORATORYCLIA [id number] [place] [address] [place] Platelet mean volume (Bld) [Entitic vol] 8.9 fL Low 9.0-12.7 [facility] Comment on above: Order Comment: Speci men Type: BLOOD SPECIMENOrdering Facility: [facility] Address: [address] [place] [address] Performed By: #### 5 7021-8 ####[facility] LABORATORYCLIA [id number] [place] [id number] [place] Platelets (Bld) [#/Vol] 313 10*3/uL Normal 150-400 [facility] Comment on above: Order Comment: Speci men Type: BLOOD SPECIMENOrdering Facility: [facility] Address: [address] [place] [address] Performed By: #### 5 7021-8 ####[facility]ORATORYCLIA [id number] [place] [address] [place] RBC (Bld) [#/Vol] 4.26 10*6/uL Normal 3.90-5.20 [facility] Comment on above: Order Comment: Speci men Type: BLOOD SPECIMENOrdering Facility: [facility] Address: [address] [place] [address] Performed By: #### 5 7021-8 ####[facility]ORATORYCLIA [id number] [address] [place] WBC (Bld) [#/Vol] 7.12 10*3/uL Normal 3.70-11.00 [facility] Comment on above: Order Comment: Speci men Type: BLOOD SPECIMENOrdering Facility: [facility] Address: [address] [place] [address] Performed By: #### 5 7021-8 ####[facility]ORATORYCLIA [id number] [address] [place] CNDSon 08-30-2023 CNDS Normal [facility] Eosinophils/100 WBC Auto (Bl d)on 08-30-2023 Eosinophils/100 WBC (Bld) 6.5 % [facility] Erythrocyte distribution wid th Auto (RBC) [Ratio]on 08-30-2023 Erythrocyte distribution width (RBC) [Ratio] 15.1 % 11.5-15.0 [facility] Hematocrit Auto (Bld) [Volum e fraction]on 08-30-2023 Hematocrit (Bld) [Volume fraction] 37.5 % 36.0-46.0 [facility] Hemoglobin [Mass/volume] in Bloodon 08-30-2023 Hemoglobin (Bld) [Mass/Vol] 12.6 g/dL 11.5-15.5 [facility] Laboratory - Chemistry and C hemistry - challengeon 08-30-2023 Calcium [Mass/Vol] 9.5 mg/dL 8.5-10.2 [facility] Chloride [Moles/Vol] 100 mmol/L 97-105 [facility] CO2 [Moles/Vol] 24 mmol/L 22-30 [facility] Creatinine [Mass/Vol] 0.63 mg/dL 0.58-0.96 [facility] Glucose [Mass/Vol] 119 mg/dL 74-99 [facility] Comment on above: The [place] Diabete s Association (ADA) provides guidance for [...] Standards of Medical Care in Diabetes 2016, [place] [employer]. Diabetes Care. 2016.39(Suppl 1). Potassium [Moles/Vol] 4.2 mmol/L 3.7-5.1 [facility] Sodium [Moles/Vol] 134 mmol/L 136-144 [facility] Urea nitrogen [Mass/Vol] 21 mg/dL 01-27 [facility] Laboratory - Hematology and Cell countson 08-30-2023 Eosinophils (Bld) [#/Vol] 0.46 10*3/uL <0.46 [facility] Immature granulocytes (Bld) [#/Vol] 0.03 10*3/uL <0.10 [facility] Immature granulocytes/100 WBC (Bld) 0.4 % [facility] Leukocytes [#/volume] correc french for nucleated erythrocytes in Blood by Automated counon 08-30-2023 WBC corrected for nucl RBC Auto (Bld) [#/Vol] 7.12 k/uL 3.70-11.00 [facility] Lymphocytes Auto (Bld) [#/Vo l]on 08-30-2023 Lymphocytes (Bld) [#/Vol] 1.01 10*3/uL 1.00-4.00 [facility] Lymphocytes/100 WBC Auto (Bl d)on 08-30-2023 Lymphocytes/100 WBC (Bld) 14.2 % [facility] MCH Auto (RBC) [Entitic mass ]on 08-30-2023 MCH (RBC) [Entitic mass] 29.6 pg 26.0-34.0 [facility] MCHC Auto (RBC) [Mass/Vol]on 08-30-2023 MCHC (RBC) [Mass/Vol] 33.6 g/dL 30.5-36.0 [facility] MCV Auto (RBC) [Entitic vol] on 08-30-2023 MCV (RBC) [Entitic vol] 88.0 fL 80.0-100.0 [facility] Monocytes Auto (Bld) [#/Vol] on 08-30-2023 Monocytes (Bld) [#/Vol] 0.70 10*3/uL <0.87 [facility] Monocytes/100 WBC Auto (Bld) on 08-30-2023 Monocytes/100 WBC (Bld) 9.8 % [facility] NURSING PROGon 08-30-2023 NURSING PROG [facility] Neutrophils Auto (Bld) [#/Vo l]on 08-30-2023 Neutrophils (Bld) [#/Vol] 4.89 10*3/uL 1.45-7.50 [facility] Neutrophils/100 WBC Auto (Bl d)on 08-30-2023 Neutrophils/100 WBC (Bld) 68.7 % [facility] No Panel Informationon 08-30 Estimated GFR (CKD-EPI) 96 mL/min/1.73m??? >=60 [facility] Comment on above: Estimated Glomerular Filtration [...] 08-30-2023 Nucleated RBC (Bld) [#/Vol] 10*3/uL <0.01 [facility] Nucleated erythrocytes [Pres ence] in Blood by Automated counton 08-30-2023 Nucleated RBC Auto Ql (Bld) 0.0 /100{WBC} [facility] Platelet mean volume Auto (B ld) [Entitic vol]on 08-30-2023 Platelet mean volume (Bld) [Entitic vol] 8.9 fL 9.0-12.7 [facility] Platelets Auto (Bld) [#/Vol] on 08-30-2023 Platelets (Bld) [#/Vol] 313 10*3/uL 150-400 [facility] RBC Auto (Bld) [#/Vol]on RBC (Bld) [#/Vol] 4.26 10*6/uL 3.90-5.20 [facility] Serum or plasma anion gap de terminationon 08-30-2023 Anion gap [Moles/Vol] 10 mmol/L 9-18 [facility] Basic metabolic 2000 panelon 08-29-2023 Anion gap [Moles/Vol] 12 mmol/L Normal 9-18 [facility] Comment on above: Order Comment: Speci men Type: BLOOD SPECIMENOrdering Facility: [facility] Address: [address] [place] [address] Performed By: #### 2 4321-2 ####[facility] LABORATORYCLIA [id number] [place] [address] [place] Calcium [Mass/Vol] 9.1 mg/dL Normal 8.5-10.2 [facility] Comment on above: Order Comment: Speci men Type: BLOOD SPECIMENOrdering Facility: [facility] Address: [address] [place] [address] Performed By: #### 2 4321-2 ####[facility] LABORATORYCLIA [id number] [place] [id number] [place] Chloride [Moles/Vol] 106 mmol/L High 97-105 [facility] Comment on above: Order Comment: Speci men Type: BLOOD SPECIMENOrdering Facility: [facility] Address: [address] [place] [address] Performed By: #### 2 4321-2 ####[facility] LABORATORYCLIA [id number] [place] [address] [place] CO2 [Moles/Vol] 22 mmol/L Normal 22-30 [facility] Comment on above: Order Comment: Speci men Type: BLOOD SPECIMENOrdering Facility: [facility] Address: [address] [place] [address] Performed By: #### 2 4321-2 ####[facility] LABORATORYCLIA [id number] [place] [id number] [place] Creatinine [Mass/Vol] 0.87 mg/dL Normal 0.58-0.96 [facility] Comment on above: Order Comment: Speci men Type: BLOOD SPECIMENOrdering Facility: [facility] Address: [address] [place] [address] Performed By: #### 2 4321-2 ####[facility] LABORATORYCLIA [id number] [address] OF [facility] Creatinine and Glomerular filtration rate.predicted panel (S/P/Bld) 72 mL/min/1.73m??? Normal >=60 [facility] Comment on above: Order Comment: Speci men Type: BLOOD SPECIMENOrdering Facility: [facility] Address: [address] [place] [address] Result Comment: Farhana mated Glomerular Filtration Rate [...] actual GFR. Performed By: #### 2 4321-2 ####[facility] LABORATORYCLIA [id number] [place] [id number] [place] Glucose [Mass/Vol] 109 mg/dL High 74-99 [facility] Comment on above: Order Comment: Speci men Type: BLOOD SPECIMENOrdering Facility: [facility] Address: [address] [place] [address] Result Comment: The [place] Diabetes Association (ADA) provides guidance for cutoff [...] Standards of Medical Care in Diabetes 2016, [place] [employer]. Diabetes Care. 2016.39(Suppl 1). Performed By: #### 2 4321-2 ####[facility] LABORATORYCLIA [id number] [place] [address] [place] Potassium [Moles/Vol] 4.3 mmol/L Normal 3.7-5.1 [facility] Comment on above: Order Comment: Speci men Type: BLOOD SPECIMENOrdering Facility: [facility] Address: [address] [place] [address] Performed By: #### 2 4321-2 ####[facility] LABORATORYCLIA [id number] [place] [id number] [place] Sodium [Moles/Vol] 140 mmol/L Normal 136-144 [facility] Comment on above: Order Comment: Speci men Type: BLOOD SPECIMENOrdering Facility: [facility] Address: [address] [place] [address] Performed By: #### 2 4321-2 ####[facility] LABORATORYCLIA [id number] [place] [id number] [place] Urea nitrogen [Mass/Vol] 19 mg/dL Normal 7-21 [facility] Comment on above: Order Comment: Speci men Type: BLOOD SPECIMENOrdering Facility: [facility] Address: [address] [place] [address] Performed By: #### 2 4321-2 ####[facility] LABORATORYCLIA [id number] [place] [id number] [place] Basophils Auto (Bld) [#/Vol] on 08-29-2023 Basophils (Bld) [#/Vol] 10*3/uL <0.11 [facility] Basophils/100 WBC Auto (Bld) on 08-29-2023 Basophils/100 WBC (Bld) 0.3 % [facility] Blood manual differential co mment interpretation narrativeon 08-29-2023 Manual differential comment Ankush (Bld) [Interp] Auto [facility] CASE MANAGEMon 08-29-2023 CASE MANAGEM Normal [facility] CBC W Auto Differential pane l (Bld)on 08-29-2023 Basophils (Bld) [#/Vol] 10*3/uL Normal <0.11 [facility] Comment on above: Order Comment: Speci men Type: BLOOD SPECIMENOrdering Facility: [facility] Address: [address] [place] [address] Performed By: #### 5 7021-8 ####[facility] LABORATORYCLIA [id number] [place] [address] [place] Basophils/100 WBC (Bld) 0.3 % Normal [facility] Comment on above: Order Comment: Speci men Type: BLOOD SPECIMENOrdering Facility: [facility] Address: [address] [place] [address] Performed By: #### 5 7021-8 ####[facility] LABORATORYCLIA [id number] [place] [address] [place] Differential cell count method Nom (Bld) Auto Normal [facility] Comment on above: Order Comment: Speci men Type: BLOOD SPECIMENOrdering Facility: [facility] Address: [address] [place] [address] Performed By: #### 5 7021-8 ####[facility] LABORATORYCLIA [id number] [place] [address] [place] Eosinophils (Bld) [#/Vol] 0.44 10*3/uL Normal <0.46 [facility] Comment on above: Order Comment: Speci men Type: BLOOD SPECIMENOrdering Facility: [facility] Address: [address] [place] [address] Performed By: #### 5 7021-8 ####[facility] LABORATORYCLIA [id number] [place] [address] [place] Eosinophils/100 WBC (Bld) 6.6 % Normal [facility] Comment on above: Order Comment: Speci men Type: BLOOD SPECIMENOrdering Facility: [facility] Address: [address] [place] [address] Performed By: #### 5 7021-8 ####[facility] LABORATORYCLIA [id number] [place] [address] [place] Erythrocyte distribution width (RBC) [Ratio] 15.0 % Normal 11.5-15.0 [facility] Center Comment on above: Order Comment: Speci men Type: BLOOD SPECIMENOrdering Facility: [facility] Address: [address] [place] [address] Performed By: #### 5 7021-8 ####[facility] LABORATORYCLIA [id number] [address] [place] Hematocrit (Bld) [Volume fraction] 36.4 % Normal 36.0-46.0 [facility] Comment on above: Order Comment: Speci men Type: BLOOD SPECIMENOrdering Facility: [facility] Address: [address] [place] [address] Performed By: #### 5 7021-8 ####[facility] LABORATORYCLIA [id number] [place] [address] [place] Hemoglobin (Bld) [Mass/Vol] 11.9 g/dL Normal 11.5-15.5 [facility] Comment on above: Order Comment: Speci men Type: BLOOD SPECIMENOrdering Facility: [facility] Address: [address] [place] [address] Performed By: #### 5 7021-8 ####[facility] LABORATORYCLIA [id number] [place] [address] [place] Immature granulocytes (Bld) [#/Vol] 0.03 10*3/uL Normal <0.10 [facility] Comment on above: Order Comment: Speci men Type: BLOOD SPECIMENOrdering Facility: [facility] Address: [address] [place] [address] Performed By: #### 5 7021-8 ####[facility] LABORATORYCLIA [id number] [place] [address] [place] Immature granulocytes/100 WBC (Bld) 0.4 % Normal [facility] Comment on above: Order Comment: Speci men Type: BLOOD SPECIMENOrdering Facility: [facility] Address: [address] [place] [address] Performed By: #### 5 7021-8 ####[facility] LABORATORYCLIA [id number] [place] [address] [place] Lymphocytes (Bld) [#/Vol] 0.73 10*3/uL Low 1.00-4.00 [facility] Comment on above: Order Comment: Speci men Type: BLOOD SPECIMENOrdering Facility: [facility] Address: [address] [place] [address] Performed By: #### 5 7021-8 ####[facility] LABORATORYCLIA [id number] [place] [address] [place] Lymphocytes/100 WBC (Bld) 10.9 % Normal [facility] Comment on above: Order Comment: Speci men Type: BLOOD SPECIMENOrdering Facility: [facility] Address: [address] [place] [address] Performed By: #### 5 7021-8 ####[facility] LABORATORYCLIA [id number] [place] [address] [place] MCH (RBC) [Entitic mass] 29.6 pg Normal 26.0-34.0 [facility] Comment on above: Order Comment: Speci men Type: BLOOD SPECIMENOrdering Facility: [facility] Address: [address] [place] [address] Performed By: #### 5 7021-8 ####[facility] LABORATORYCLIA [id number] [place] [address] [place] MCHC (RBC) [Mass/Vol] 32.7 g/dL Normal 30.5-36.0 [facility] Comment on above: Order Comment: Speci men Type: BLOOD SPECIMENOrdering Facility: [facility] Address: [address] [place] [address] Performed By: #### 5 7021-8 ####[facility] LABORATORYCLIA [id number] [place] [id number] [place] MCV (RBC) [Entitic vol] 90.5 fL Normal 80.0-100.0 [facility] Comment on above: Order Comment: Speci men Type: BLOOD SPECIMENOrdering Facility: [facility] Address: [address] [place] [address] Performed By: #### 5 7021-8 ####[facility] LABORATORYCLIA [id number] [place] [id number] [place] Monocytes (Bld) [#/Vol] 0.59 10*3/uL Normal <0.87 [facility] Comment on above: Order Comment: Speci men Type: BLOOD SPECIMENOrdering Facility: [facility] Address: [address] [place] [address] Performed By: #### 5 7021-8 ####[facility] LABORATORYCLIA [id number] [place] [address] [place] Monocytes/100 WBC (Bld) 8.8 % Normal [facility] Comment on above: Order Comment: Speci men Type: BLOOD SPECIMENOrdering Facility: [facility] Address: [address] [place] [address] Performed By: #### 5 7021-8 ####[facility] LABORATORYCLIA [id number] [place] [id number] [place] Neutrophils (Bld) [#/Vol] 4.87 10*3/uL Normal 1.45-7.50 [facility] Comment on above: Order Comment: Speci men Type: BLOOD SPECIMENOrdering Facility: [facility] Address: [address] [place] [address] Performed By: #### 5 7021-8 ####[facility] LABORATORYCLIA [id number] [place] [id number] [place] Neutrophils/100 WBC (Bld) 73.0 % Normal [facility] Comment on above: Order Comment: Speci men Type: BLOOD SPECIMENOrdering Facility: [facility] Address: [address] [place] [address] Performed By: #### 5 7021-8 ####[facility] LABORATORYCLIA [id number] [place] [id number] [place] Nucleated RBC (Bld) [#/Vol] 10*3/uL Normal <0.01 [facility] Comment on above: Order Comment: Speci men Type: BLOOD SPECIMENOrdering Facility: [facility] Address: [address] [place] [address] Performed By: #### 5 7021-8 ####[facility] LABORATORYCLIA [id number] [place] [id number] [place] Nucleated RBC/100 WBC (Bld) [Ratio] 0.0 /100 WBC Normal [facility] Comment on above: Order Comment: Speci men Type: BLOOD SPECIMENOrdering Facility: [facility] Address: [address] [place] [address] Performed By: #### 5 7021-8 ####[facility] LABORATORYCLIA [id number] [place] [address] [place] Platelet mean volume (Bld) [Entitic vol] 8.9 fL Low 9.0-12.7 [facility] Comment on above: Order Comment: Speci men Type: BLOOD SPECIMENOrdering Facility: [facility] Address: [address] [place] [address] Performed By: #### 5 7021-8 ####[facility] LABORATORYCLIA [id number] [place] [id number] [place] Platelets (Bld) [#/Vol] 266 10*3/uL Normal 150-400 [facility] Comment on above: Order Comment: Speci men Type: BLOOD SPECIMENOrdering Facility: [facility] Address: [address] [place] [address] Performed By: #### 5 7021-8 ####[facility] LABORATORYCLIA [id number] [place] [id number] [place] RBC (Bld) [#/Vol] 4.02 10*6/uL Normal 3.90-5.20 [facility] Comment on above: Order Comment: Speci men Type: BLOOD SPECIMENOrdering Facility: [facility] Address: [address] [place] [address] Performed By: #### 5 7021-8 ####[facility] LABORATORYCLIA [id number] [address] [facility] WBC (Bld) [#/Vol] 6.68 10*3/uL Normal 3.70-11.00 [facility] Comment on above: Order Comment: Speci men Type: BLOOD SPECIMENOrdering Facility: [facility] Address: [address] [place], [place] [address] [address] Performed By: #### 5 7021-8 ####[facility] LABORATORYCLIA [id number] [place] [id number] [place] CONSULTon 08-29-2023 CONSULT Normal [facility] Eosinophils/100 WBC Auto (Bl d)on 08-29-2023 Eosinophils/100 WBC (Bld) 6.6 % [facility] Erythrocyte distribution wid th Auto (RBC) [Ratio]on 08-29-2023 Erythrocyte distribution width (RBC) [Ratio] 15.0 % 11.5-15.0 [facility] Hematocrit Auto (Bld) [Volum e fraction]on 08-29-2023 Hematocrit (Bld) [Volume fraction] 36.4 % 36.0-46.0 [facility] Hemoglobin [Mass/volume] in Bloodon 08-29-2023 Hemoglobin (Bld) [Mass/Vol] 11.9 g/dL 11.5-15.5 [facility] Laboratory - Chemistry and C hemistry - challengeon 08-29-2023 Calcium [Mass/Vol] 9.1 mg/dL 8.5-10.2 [facility] Chloride [Moles/Vol] 106 mmol/L 97-105 [facility] CO2 [Moles/Vol] 22 mmol/L 22-30 [facility] Creatinine [Mass/Vol] 0.87 mg/dL 0.58-0.96 [facility] Glucose [Mass/Vol] 109 mg/dL 74-99 [facility] Comment on above: The [place] Diab[employer] [place] Association (ADA) provides guidance for [...] Standards of Medical Care in Diabetes 2016, [place] [employer]. Diabetes Care. 2016.39(Suppl 1). Potassium [Moles/Vol] 4.3 mmol/L 3.7-5.1 [facility] Sodium [Moles/Vol] 140 mmol/L 136-144 [facility] Urea nitrogen [Mass/Vol] 19 mg/dL 01-27 [facility] Laboratory - Hematology and Cell countson 08-29-2023 Eosinophils (Bld) [#/Vol] 0.44 10*3/uL <0.46 [facility] Immature granulocytes (Bld) [#/Vol] 0.03 10*3/uL <0.10 [facility] Immature granulocytes/100 WBC (Bld) 0.4 % [facility] Leukocytes [#/volume] correc french for nucleated erythrocytes in Blood by Automated counon 08-29-2023 WBC corrected for nucl RBC Auto (Bld) [#/Vol] 6.68 k/uL 3.70-11.00 [facility] Lymphocytes Auto (Bld) [#/Vo l]on 08-29-2023 Lymphocytes (Bld) [#/Vol] 0.73 10*3/uL 1.00-4.00 [facility] Lymphocytes/100 WBC Auto (Bl d)on 08-29-2023 Lymphocytes/100 WBC (Bld) 10.9 % [facility] MCH Auto (RBC) [Entitic mass ]on 08-29-2023 MCH (RBC) [Entitic mass] 29.6 pg 26.0-34.0 [facility] MCHC Auto (RBC) [Mass/Vol]on 08-29-2023 MCHC (RBC) [Mass/Vol] 32.7 g/dL 30.5-36.0 [facility] MCV Auto (RBC) [Entitic vol] on 08-29-2023 MCV (RBC) [Entitic vol] 90.5 fL 80.0-100.0 [facility] Monocytes Auto (Bld) [#/Vol] on 08-29-2023 Monocytes (Bld) [#/Vol] 0.59 10*3/uL <0.87 [facility] Monocytes/100 WBC Auto (Bld) on 08-29-2023 Monocytes/100 WBC (Bld) 8.8 % [facility] NURSING PROGon 08-29-2023 NURSING PROG Normal [facility] Neutrophils Auto (Bld) [#/Vo l]on 08-29-2023 Neutrophils (Bld) [#/Vol] 4.87 10*3/uL 1.45-7.50 [facility] Neutrophils/100 WBC Auto (Bl d)on 08-29-2023 Neutrophils/100 WBC (Bld) 73.0 % [facility] No Panel Informationon 08-29 Estimated GFR (CKD-EPI) 72 mL/min/1.73m??? >=60 [facility] Comment on above: Estimated Glomerular Filtration [...] 08-29-2023 Nucleated RBC (Bld) [#/Vol] 10*3/uL <0.01 [facility] Nucleated erythrocytes [Pres ence] in Blood by Automated counton 08-29-2023 Nucleated RBC Auto Ql (Bld) 0.0 /100{WBC} [facility] Platelet mean volume Auto (B ld) [Entitic vol]on 08-29-2023 Platelet mean volume (Bld) [Entitic vol] 8.9 fL 9.0-12.7 [facility] Platelets Auto (Bld) [#/Vol] on 08-29-2023 Platelets (Bld) [#/Vol] 266 10*3/uL 150-400 [facility] RBC Auto (Bld) [#/Vol]on RBC (Bld) [#/Vol] 4.02 10*6/uL 3.90-5.20 [facility] Serum or plasma anion gap de terminationon 08-29-2023 Anion gap [Moles/Vol] 12 mmol/L -18 [facility] Basic metabolic 2000 panelon 08-28-2023 Anion gap [Moles/Vol] 11 mmol/L Normal -18 [facility] Comment on above: Order Comment: Speci men Type: BLOOD SPECIMENOrdering Facility: [facility] Address: [address] [place] [address] Performed By: #### 2 4321-2 ####[facility] LABORATORYCLIA [id number] [place] [address] [place] Calcium [Mass/Vol] 9.3 mg/dL Normal 8.5-10.2 [facility] Comment on above: Order Comment: Speci men Type: BLOOD SPECIMENOrdering Facility: [facility] Address: [address] [place] [address] Performed By: #### 2 4321-2 ####[facility] LABORATORYCLIA [id number] [place] [address] [place] Chloride [Moles/Vol] 107 mmol/L High 97-105 [facility] Comment on above: Order Comment: Speci men Type: BLOOD SPECIMENOrdering Facility: [facility] Address: [address] [place] [address] Performed By: #### 2 4321-2 ####[facility] LABORATORYCLIA [id number] [place] [address] [place] CO2 [Moles/Vol] 23 mmol/L Normal 22-30 [facility] Comment on above: Order Comment: Speci men Type: BLOOD SPECIMENOrdering Facility: [facility] Address: [address] [place] [address] Performed By: #### 2 4321-2 ####[facility] LABORATORYCLIA [id number] [place] [id number] [place] Creatinine [Mass/Vol] 0.78 mg/dL Normal 0.58-0.96 [facility] Comment on above: Order Comment: [facility] Type: BLOOD SPECIMENOrdering Facility: [facility] Address: [address] [place] [address] Performed By: #### 2 4321-2 ####[facility]ORATORYCLIA [id number] [place] [id number] [place] Creatinine and Glomerular filtration rate.predicted panel (S/P/Bld) 82 mL/min/1.73m??? Normal >=60 [facility] Comment on above: Order Comment: [facility] Type: BLOOD SPECIMENOrdering Facility: [facility] Address: [address] [place] [address] Result Comment: Farhana mated Glomerular Filtration Rate [...] actual GFR. Performed By: #### 2 4321-2 ####[facility] LABORATORYCLIA [id number] [place] [id number] [place] Glucose [Mass/Vol] 111 mg/dL High 74-99 [facility] Comment on above: Order Comment: Mason simpson Type: BLOOD SPECIMENOrdering Facility: [facility] Address: [address] [place] [address] Result Comment: The [place] Diabetes Association (ADA) provides guidance for cutoff [...] Standards of Medical Care in Diabetes 2016, [place] [employer]. Diabetes Care. 2016.39(Suppl 1). Performed By: #### 2 4321-2 ####[facility] LABORATORYCLIA [id number] [place] [id number] [place] Potassium [Moles/Vol] 4.7 mmol/L Normal 3.7-5.1 [facility] Comment on above: Order Comment: Mason simpson Type: BLOOD SPECIMENOrdering Facility: [facility] Address: [address] [place] [address] Performed By: #### 2 4321-2 ####[facility] LABORATORYCLIA [id number] [place] [id number] [place] Sodium [Moles/Vol] 141 mmol/L Normal 136-144 [facility] Comment on above: Order Comment: Mason simpson Type: BLOOD SPECIMENOrdering Facility: [facility] Address: [address] [place] [address] Performed By: #### 2 4321-2 ####[facility] LABORATORYCLIA [id number] [place] [id number] [place] Urea nitrogen [Mass/Vol] 19 mg/dL Normal 7-21 [facility] Comment on above: Order Comment: Mason simpson Type: BLOOD SPECIMENOrdering Facility: [facility] Address: [address] [place] [address] Performed By: #### 2 4321-2 ####[facility] LABORATORYCLIA [id number] [place] [id number] [place] Basophils Auto (Bld) [#/Vol] on 08-28-2023 Basophils (Bld) [#/Vol] 10*3/uL <0.11 [facility] Basophils/100 WBC Auto (Bld) on 08-28-2023 Basophils/100 WBC (Bld) 0.1 % [facility] Blood manual differential co mment interpretation narrativeon 08-28-2023 Manual differential comment Ankush (Bld) [Interp] Auto [facility] CASE MANAGEMon 08-28-2023 CASE MANAGEM Normal [facility] CBC W Auto Differential pane l (Bld)on 08-28-2023 Basophils (Bld) [#/Vol] 10*3/uL Normal <0.11 [facility] Comment on above: Order Comment: Speci men Type: BLOOD SPECIMENOrdering Facility: [facility] Address: [address] [place] [address] Performed By: #### 5 7021-8 ####[facility] LABORATORYCLIA [id number] [place] [address] [place] Basophils/100 WBC (Bld) 0.1 % Normal [facility] Comment on above: Order Comment: Speci men Type: BLOOD SPECIMENOrdering Facility: [facility] Address: [address] [place] [address] Performed By: #### 5 7021-8 ####[facility] LABORATORYCLIA [id number] [place] [address] [place] Differential cell count method Nom (Bld) Auto Normal [facility] Comment on above: Order Comment: Speci men Type: BLOOD SPECIMENOrdering Facility: [facility] Address: [address] [place] [address] Performed By: #### 5 7021-8 ####[facility] LABORATORYCLIA [id number] [place] [address] [place] Eosinophils (Bld) [#/Vol] 0.37 10*3/uL Normal <0.46 [facility] Comment on above: Order Comment: Speci men Type: BLOOD SPECIMENOrdering Facility: [facility] Address: [address] [place] [address] Performed By: #### 5 7021-8 ####[facility] LABORATORYCLIA [id number] [place] [address] [place] Eosinophils/100 WBC (Bld) 5.5 % Normal [facility] Comment on above: Order Comment: Speci men Type: BLOOD SPECIMENOrdering Facility: [facility] Address: [address] [place] [address] Performed By: #### 5 7021-8 ####[facility] LABORATORYCLIA [id number] [place] [id number] [place] Erythrocyte distribution width (RBC) [Ratio] 15.1 % High 11.5-15.0 [facility] Comment on above: Order Comment: Speci men Type: BLOOD SPECIMENOrdering Facility: [facility] Address: [address] [place] [address] Performed By: #### 5 7021-8 ####[facility] LABORATORYCLIA [id number] [place] [address] [place] Hematocrit (Bld) [Volume fraction] 34.5 % Low 36.0-46.0 [facility] Comment on above: Order Comment: Speci men Type: BLOOD SPECIMENOrdering Facility: [facility] Address: [address] [place] [address] Performed By: #### 5 7021-8 ####[facility] LABORATORYCLIA [id number] [place] [address] [place] Hemoglobin (Bld) [Mass/Vol] 11.0 g/dL Low 11.5-15.5 [facility] Comment on above: Order Comment: Speci men Type: BLOOD SPECIMENOrdering Facility: [facility] Address: [address] [place] [address] Performed By: #### 5 7021-8 ####[facility] LABORATORYCLIA [id number] [place] [id number] [place] Immature granulocytes (Bld) [#/Vol] 0.03 10*3/uL Normal <0.10 [facility] Comment on above: Order Comment: Speci men Type: BLOOD SPECIMENOrdering Facility: [facility] Address: [address] [place] [address] Performed By: #### 5 7021-8 ####[facility] LABORATORYCLIA [id number] [place] [address] [place] Immature granulocytes/100 WBC (Bld) 0.4 % Normal [facility] Comment on above: Order Comment: Speci men Type: BLOOD SPECIMENOrdering Facility: [facility] Address: [address] [place] [address] Performed By: #### 5 7021-8 ####[facility] LABORATORYCLIA [id number] [address] Lymphocytes (Bld) [#/Vol] 0.61 10*3/uL Low 1.00-4.00 [facility] Comment on above: Order Comment: Speci men Type: BLOOD SPECIMENOrdering Facility: [facility] Address: [address] [place] [address] Performed By: #### 5 7021-8 ####[facility] LABORATORYCLIA [id number] [address] Lymphocytes/100 WBC (Bld) 9.0 % Normal [facility] Comment on above: Order Comment: Speci men Type: BLOOD SPECIMENOrdering Facility: [facility] Address: [address] [place] [address] Performed By: #### 5 7021-8 ####[facility] LABORATORYCLIA [id number] [address] [place] MCH (RBC) [Entitic mass] 29.3 pg Normal 26.0-34.0 [facility] Comment on above: Order Comment: Speci men Type: BLOOD SPECIMENOrdering Facility: [facility] Address: [address] [place] [address] Performed By: #### 5 7021-8 ####[facility] LABORATORYCLIA [id number] [address] [place] [facility] MCHC (RBC) [Mass/Vol] 31.9 g/dL Normal 30.5-36.0 [facility] Comment on above: Order Comment: Speci men Type: BLOOD SPECIMENOrdering Facility: [facility] Address: [address] [place] [address] Performed By: #### 5 7021-8 ####[facility] LABORATORYCLIA [id number] [address] [place] MCV (RBC) [Entitic vol] 91.8 fL Normal 80.0-100.0 [facility] Comment on above: Order Comment: Speci men Type: BLOOD SPECIMENOrdering Facility: [facility] Address: [address] [place] [address] Performed By: #### 5 7021-8 ####[facility] LABORATORYCLIA [id number] [place] [address] [place] Monocytes (Bld) [#/Vol] 0.44 10*3/uL Normal <0.87 [facility] Comment on above: Order Comment: Speci men Type: BLOOD SPECIMENOrdering Facility: [facility] Address: [address] [place] [address] Performed By: #### 5 7021-8 ####[facility] LABORATORYCLIA [id number] [address] [place] Monocytes/100 WBC (Bld) 6.5 % Normal [facility] Comment on above: Order Comment: Speci men Type: BLOOD SPECIMENOrdering Facility: [facility] Address: [address] [place] [address] Performed By: #### 5 7021-8 ####[facility] LABORATORYCLIA [id number] [place] [address] [place] Neutrophils (Bld) [#/Vol] 5.30 10*3/uL Normal 1.45-7.50 [facility] Comment on above: Order Comment: Speci men Type: BLOOD SPECIMENOrdering Facility: [facility] Address: [address] [place] [address] Performed By: #### 5 7021-8 ####[facility] LABORATORYCLIA [id number] [place] [id number] [place] Neutrophils/100 WBC (Bld) 78.5 % Normal [facility] Comment on above: Order Comment: Speci men Type: BLOOD SPECIMENOrdering Facility: [facility] Address: [address] [place] [address] Performed By: #### 5 7021-8 ####[facility] LABORATORYCLIA [id number] [place] [address] [place] Nucleated RBC (Bld) [#/Vol] 10*3/uL Normal <0.01 [facility] Comment on above: Order Comment: Speci men Type: BLOOD SPECIMENOrdering Facility: [facility] Address: [address] [place] [address] Performed By: #### 5 7021-8 ####[facility]ORATORYCLIA [id number] [place] [id number] [place] Nucleated RBC/100 WBC (Bld) [Ratio] 0.0 /100 WBC Normal [facility] Comment on above: Order Comment: Speci men Type: BLOOD SPECIMENOrdering Facility: [facility] Address: [address] [place] [address] Performed By: #### 5 7021-8 ####[facility] LABORATORYCLIA [id number] [place] [id number] [place] Platelet mean volume (Bld) [Entitic vol] 8.9 fL Low 9.0-12.7 [facility] Comment on above: Order Comment: Speci men Type: BLOOD SPECIMENOrdering Facility: [facility] Address: [address] [place] [address] Performed By: #### 5 7021-8 ####[facility]ORATORYCLIA [id number] [place] [id number] [place] Platelets (Bld) [#/Vol] 236 10*3/uL Normal 150-400 [facility] Comment on above: Order Comment: Speci men Type: BLOOD SPECIMENOrdering Facility: [facility] Address: [address] [place] [address] Performed By: #### 5 7021-8 ####[facility] LABORATORYCLIA [id number] [place] [id number] [place] RBC (Bld) [#/Vol] 3.76 10*6/uL Low 3.90-5.20 [facility] Comment on above: Order Comment: Speci men Type: BLOOD SPECIMENOrdering Facility: [facility] Address: [address] [place] [address] Performed By: #### 5 7021-8 ####[facility] LABORATORYCLIA [id number] [place] [id number] [place] WBC (Bld) [#/Vol] 6.76 10*3/uL Normal 3.70-11.00 [facility] Comment on above: Order Comment: Speci men Type: BLOOD SPECIMENOrdering Facility: [facility] Address: [facility] [address] [place] [address] Performed By: #### 5 7021-8 ####[facility] LABORATORYCLIA [id number] [place] [id number] [place] CONSULTon 08-28-2023 CONSULT Normal [facility] Eosinophils/100 WBC Auto (Bl d)on 08-28-2023 Eosinophils/100 WBC (Bld) 5.5 % [facility] Erythrocyte distribution wid th Auto (RBC) [Ratio]on 08-28-2023 Erythrocyte distribution width (RBC) [Ratio] 15.1 % 11.5-15.0 [facility] Hematocrit Auto (Bld) [Volum e fraction]on 08-28-2023 Hematocrit (Bld) [Volume fraction] 34.5 % 36.0-46.0 [facility] Hemoglobin [Mass/volume] in Bloodon 08-28-2023 Hemoglobin (Bld) [Mass/Vol] 11.0 g/dL 11.5-15.5 [facility] Laboratory - Chemistry and C hemistry - challengeon 08-28-2023 Calcium [Mass/Vol] 9.3 mg/dL 8.5-10.2 [facility] Chloride [Moles/Vol] 107 mmol/L 97-105 [facility] CO2 [Moles/Vol] 23 mmol/L 22-30 [facility] Creatinine [Mass/Vol] 0.78 mg/dL 0.58-0.96 [facility] Glucose [Mass/Vol] 111 mg/dL 74-99 [facility] Comment on above: The [place] Diabete s Association (ADA) provides guidance for [...] Standards of Medical Care in Diabetes 2016, [place] [employer]. Diabetes Care. 2016.39(Suppl 1). Potassium [Moles/Vol] 4.7 mmol/L 3.7-5.1 [facility] Sodium [Moles/Vol] 141 mmol/L 136-144 [facility] Urea nitrogen [Mass/Vol] 19 mg/dL 7- [facility] Laboratory - Hematology and Cell countson 08-28-2023 Eosinophils (Bld) [#/Vol] 0.37 10*3/uL <0.46 [facility] Immature granulocytes (Bld) [#/Vol] 0.03 10*3/uL <0.10 [facility] Immature granulocytes/100 WBC (Bld) 0.4 % [facility] Leukocytes [#/volume] correc french for nucleated erythrocytes in Blood by Automated counon 08-28-2023 WBC corrected for nucl RBC Auto (Bld) [#/Vol] 6.76 k/uL 3.70-11.00 [facility] Lymphocytes Auto (Bld) [#/Vo l]on 08-28-2023 Lymphocytes (Bld) [#/Vol] 0.61 10*3/uL 1.00-4.00 [facility] Lymphocytes/100 WBC Auto (Bl d)on 08-28-2023 Lymphocytes/100 WBC (Bld) 9.0 % [facility] MCH Auto (RBC) [Entitic mass ]on 08-28-2023 MCH (RBC) [Entitic mass] 29.3 pg 26.0-34.0 [facility] MCHC Auto (RBC) [Mass/Vol]on 08-28-2023 MCHC (RBC) [Mass/Vol] 31.9 g/dL 30.5-36.0 [facility] MCV Auto (RBC) [Entitic vol] on 08-28-2023 MCV (RBC) [Entitic vol] 91.8 fL 80.0-100.0 [facility] Monocytes Auto (Bld) [#/Vol] on 08-28-2023 Monocytes (Bld) [#/Vol] 0.44 10*3/uL <0.87 [facility] Monocytes/100 WBC Auto (Bld) on 08-28-2023 Monocytes/100 WBC (Bld) 6.5 % [facility] NURSING PROGon 08-28-2023 NURSING PROG Normal [facility] NURSING PROG Normal [facility] Neutrophils Auto (Bld) [#/Vo l]on 08-28-2023 Neutrophils (Bld) [#/Vol] 5.30 10*3/uL 1.45-7.50 [facility] Neutrophils/100 WBC Auto (Bl d)on 08-28-2023 Neutrophils/100 WBC (Bld) 78.5 % [facility] No Panel Informationon 08-28 Estimated GFR (CKD-EPI) 82 mL/min/1.73m??? >=60 [facility] Comment on above: Estimated Glomerular Filtration [...] 08-28-2023 Nucleated RBC (Bld) [#/Vol] 10*3/uL <0.01 [facility] Nucleated erythrocytes [Pres ence] in Blood by Automated counton 08-28-2023 Nucleated RBC Auto Ql (Bld) 0.0 /100{WBC} [facility] PT EDon 08-28-2023 PT ED Normal [facility] Platelet mean volume Auto (B ld) [Entitic vol]on 08-28-2023 Platelet mean volume (Bld) [Entitic vol] 8.9 fL 9.0-12.7 [facility] Platelets Auto (Bld) [#/Vol] on 08-28-2023 Platelets (Bld) [#/Vol] 236 10*3/uL 150-400 [facility] RBC Auto (Bld) [#/Vol]on RBC (Bld) [#/Vol] 3.76 10*6/uL 3.90-5.20 [facility] Serum or plasma anion gap de terminationon 08-28-2023 Anion gap [Moles/Vol] 11 mmol/L 9-18 [facility] THERAPY NTon 08-28-2023 THERAPY NT Normal [facility] Basic metabolic 2000 panelon 08-27-2023 Anion gap [Moles/Vol] 9 mmol/L Normal -18 [facility] Comment on above: Order Comment: Speci men Type: BLOOD SPECIMENOrdering Facility: [facility] Address: [address] [place] [address] Performed By: #### 2 4321-2 ####[facility] LABORATORYCLIA [id number] [place] [address] [place] Calcium [Mass/Vol] 9.0 mg/dL Normal 8.5-10.2 [facility] Comment on above: Order Comment: Speci men Type: BLOOD SPECIMENOrdering Facility: [facility] Address: [address] [place] [address] Performed By: #### 2 4321-2 ####[facility] LABORATORYCLIA [id number] [place] [id number] [place] Chloride [Moles/Vol] 103 mmol/L Normal 97-105 [facility] Comment on above: Order Comment: Speci men Type: BLOOD SPECIMENOrdering Facility: [facility] Address: [address] [place] [address] Performed By: #### 2 4321-2 ####[facility] LABORATORYCLIA [id number] [place] [id number] [place] CO2 [Moles/Vol] 27 mmol/L Normal 22-30 [facility] Comment on above: Order Comment: Speci men Type: BLOOD SPECIMENOrdering Facility: [facility] Address: [address] [place] [address] Performed By: #### 2 4321-2 ####[facility] LABORATORYCLIA [id number] [place] [address] [place] Creatinine [Mass/Vol] 0.69 mg/dL Normal 0.58-0.96 [facility] Comment on above: Order Comment: Mason simpson Type: BLOOD SPECIMENOrdering Facility: [facility] Address: [address] [place] [address] Performed By: #### 2 4321-2 ####[facility] LABORATORYCLIA [id number] [address] Creatinine and Glomerular filtration rate.predicted panel (S/P/Bld) 93 mL/min/1.73m??? Normal >=60 [facility] Comment on above: Order Comment: Mason simpson Type: BLOOD SPECIMENOrdering Facility: [facility] Address: [address] [place] [address] Result Comment: Farhana mated Glomerular Filtration Rate [...] actual GFR. Performed By: #### 2 4321-2 ####[facility] LABORATORYCLIA [id number] [place] [address] [place] Glucose [Mass/Vol] 103 mg/dL High 74-99 [facility] Comment on above: Order Comment: Mason simpson Type: BLOOD SPECIMENOrdering Facility: [facility] Address: [address] [place] [address] Result Comment: The [place] Diabetes Association (ADA) provides guidance for cutoff [...] Standards of Medical Care in Diabetes 2016, [place] [employer]. Diabetes Care. 2016.39(Suppl 1). Performed By: #### 2 4321-2 ####[facility] LABORATORYCLIA [id number] [place] [id number] [place] Potassium [Moles/Vol] 4.2 mmol/L Normal 3.7-5.1 [facility] Comment on above: Order Comment: Speci men Type: BLOOD SPECIMENOrdering Facility: [facility] Address: [address] [place] [address] Performed By: #### 2 4321-2 ####[facility] LABORATORYCLIA [id number] [place] [id number] [place] Sodium [Moles/Vol] 139 mmol/L Normal 136-144 [facility] Comment on above: Order Comment: Speci men Type: BLOOD SPECIMENOrdering Facility: [facility] Address: [address] [place] [address] Performed By: #### 2 4321-2 ####[facility] LABORATORYCLIA [id number] [place] [id number] [place] Urea nitrogen [Mass/Vol] 12 mg/dL Normal 7-21 [facility] Comment on above: Order Comment: Speci men Type: BLOOD SPECIMENOrdering Facility: [facility] Address: [address] [place] [address] Performed By: #### 2 4321-2 ####[facility] LABORATORYCLIA [id number] [place] [id number] [place] Basophils Auto (Bld) [#/Vol] on 08-27-2023 Basophils (Bld) [#/Vol] 10*3/uL <0.11 [facility] Basophils/100 WBC Auto (Bld) on 08-27-2023 Basophils/100 WBC (Bld) 0.1 % [facility] Blood manual differential co mment interpretation narrativeon 08-27-2023 Manual differential comment Ankush (Bld) [Interp] Auto [facility] CBC W Auto Differential pane l (Bld)on 08-27-2023 Basophils (Bld) [#/Vol] 10*3/uL Normal <0.11 [facility] Comment on above: Order Comment: Speci men Type: BLOOD SPECIMENOrdering Facility: [facility] Address: [address] [place] [address] Performed By: #### 5 7021-8 ####[facility] LABORATORYCLIA [id number] [place] [address] [place] Basophils/100 WBC (Bld) 0.1 % Normal [facility] Comment on above: Order Comment: Speci men Type: BLOOD SPECIMENOrdering Facility: [facility] Address: [address] [place] [address] Performed By: #### 5 7021-8 ####[facility] LABORATORYCLIA [id number] [place] [address] [place] Differential cell count method Nom (Bld) Auto Normal [facility] Comment on above: Order Comment: Speci men Type: BLOOD SPECIMENOrdering Facility: [facility] Address: [address] [place] [address] Performed By: #### 5 7021-8 ####[facility] LABORATORYCLIA [id number] [place] [address] [place] Eosinophils (Bld) [#/Vol] 0.33 10*3/uL Normal <0.46 [facility] Comment on above: Order Comment: Speci men Type: BLOOD SPECIMENOrdering Facility: [facility] Address: [address] [place] [address] Performed By: #### 5 7021-8 ####[facility] LABORATORYCLIA [id number] [place] [address] [place] Eosinophils/100 WBC (Bld) 4.1 % Normal [facility] Comment on above: Order Comment: Speci men Type: BLOOD SPECIMENOrdering Facility: [facility] Address: [address] [place] [address] Performed By: #### 5 7021-8 ####[facility] LABORATORYCLIA [id number] [place] [address] [place] Erythrocyte distribution width (RBC) [Ratio] 15.1 % High 11.5-15.0 [facility] Comment on above: Order Comment: Speci men Type: BLOOD SPECIMENOrdering Facility: [facility] Address: [address] [place] [address] Performed By: #### 5 7021-8 ####[facility] LABORATORYCLIA [id number] [place] [address] [place] Hematocrit (Bld) [Volume fraction] 36.2 % Normal 36.0-46.0 [facility] Comment on above: Order Comment: Speci men Type: BLOOD SPECIMENOrdering Facility: [facility] Address: [address] [place] [address] Performed By: #### 5 7021-8 ####[facility] LABORATORYCLIA [id number] [address] [place] Hemoglobin (Bld) [Mass/Vol] 12.0 g/dL Normal 11.5-15.5 [facility] Comment on above: Order Comment: Speci men Type: BLOOD SPECIMENOrdering Facility: [facility] Address: [address] [place] [address] Performed By: #### 5 7021-8 ####[facility] LABORATORYCLIA [id number] [address] [place] Immature granulocytes (Bld) [#/Vol] 0.04 10*3/uL Normal <0.10 [facility] Comment on above: Order Comment: Speci men Type: BLOOD SPECIMENOrdering Facility: [facility] Address: [address] [place] [address] Performed By: #### 5 7021-8 ####[facility] LABORATORYCLIA [id number] [address] [place] Immature granulocytes/100 WBC (Bld) 0.5 % Normal [facility] Comment on above: Order Comment: Speci men Type: BLOOD SPECIMENOrdering Facility: [facility] Address: [address] [place] [address] Performed By: #### 5 7021-8 ####[facility] LABORATORYCLIA [id number] [place] [address] [place] Lymphocytes (Bld) [#/Vol] 1.04 10*3/uL Normal 1.00-4.00 [facility] Comment on above: Order Comment: Speci men Type: BLOOD SPECIMENOrdering Facility: [facility] Address: [address] [place] [address] Performed By: #### 5 7021-8 ####[facility] LABORATORYCLIA [id number] [address] [place] Lymphocytes/100 WBC (Bld) 13.0 % Normal [facility] Comment on above: Order Comment: Speci men Type: BLOOD SPECIMENOrdering Facility: [facility] Address: [address] [place] [address] Performed By: #### 5 7021-8 ####[facility] LABORATORYCLIA [id number] [place] [address] [place] MCH (RBC) [Entitic mass] 29.9 pg Normal 26.0-34.0 [facility] Comment on above: Order Comment: Speci men Type: BLOOD SPECIMENOrdering Facility: [facility] Address: [address] [place] [address] Performed By: #### 5 7021-8 ####[facility] LABORATORYCLIA [id number] [address] [place] MCHC (RBC) [Mass/Vol] 33.1 g/dL Normal 30.5-36.0 [facility] Comment on above: Order Comment: Speci men Type: BLOOD SPECIMENOrdering Facility: [facility] Address: [address] [place] [address] Performed By: #### 5 7021-8 ####[facility] LABORATORYCLIA [id number] [address] [place] MCV (RBC) [Entitic vol] 90.0 fL Normal 80.0-100.0 [facility] Comment on above: Order Comment: Speci men Type: BLOOD SPECIMENOrdering Facility: [facility] Address: [address] [place] [address] Performed By: #### 5 7021-8 ####[facility] LABORATORYCLIA [id number] [place] [id number] [place] Monocytes (Bld) [#/Vol] 0.59 10*3/uL Normal <0.87 [facility] Comment on above: Order Comment: Speci men Type: BLOOD SPECIMENOrdering Facility: [facility] Address: [address] [place] [address] Performed By: #### 5 7021-8 ####[facility] LABORATORYCLIA [id number] [place] [id number] [place] Monocytes/100 WBC (Bld) 7.4 % Normal [facility] Comment on above: Order Comment: Speci men Type: BLOOD SPECIMENOrdering Facility: [facility] Address: [address] [place] [address] Performed By: #### 5 7021-8 ####[facility] LABORATORYCLIA [id number] [place] [address] [place] Neutrophils (Bld) [#/Vol] 6.00 10*3/uL Normal 1.45-7.50 [facility] Comment on above: Order Comment: Speci men Type: BLOOD SPECIMENOrdering Facility: [facility] Address: [address] [place] [address] Performed By: #### 5 7021-8 ####[facility] LABORATORYCLIA [id number] [place] [id number] [place] Neutrophils/100 WBC (Bld) 74.9 % Normal [facility] Comment on above: Order Comment: Speci men Type: BLOOD SPECIMENOrdering Facility: [facility] Address: [address] [place] [address] Performed By: #### 5 7021-8 ####[facility] LABORATORYCLIA [id number] [place] [id number] [place] Nucleated RBC (Bld) [#/Vol] 10*3/uL Normal <0.01 [facility] Comment on above: Order Comment: Speci men Type: BLOOD SPECIMENOrdering Facility: [facility] Address: [address] [place] [address] Performed By: #### 5 7021-8 ####[facility]ORATORYCLIA [id number] [place] [id number] [place] Nucleated RBC/100 WBC (Bld) [Ratio] 0.0 /100 WBC Normal [facility] Comment on above: Order Comment: Speci men Type: BLOOD SPECIMENOrdering Facility: [facility] Address: [address] [place] [address] Performed By: #### 5 7021-8 ####[facility] LABORATORYCLIA [id number] [place] [id number] [place] Platelet mean volume (Bld) [Entitic vol] 8.7 fL Low 9.0-12.7 [facility] Comment on above: Order Comment: Speci men Type: BLOOD SPECIMENOrdering Facility: [facility] Address: [address] [place] [address] Performed By: #### 5 7021-8 ####[facility] LABORATORYCLIA [id number] [place] [address] [place] Platelets (Bld) [#/Vol] 265 10*3/uL Normal 150-400 [facility] Comment on above: Order Comment: Speci men Type: BLOOD SPECIMENOrdering Facility: [facility] Address: [address] [place] [address] Performed By: #### 5 7021-8 ####[facility] LABORATORYCLIA [id number] [place] [id number] [place] RBC (Bld) [#/Vol] 4.02 10*6/uL Normal 3.90-5.20 [facility] Comment on above: Order Comment: Speci men Type: BLOOD SPECIMENOrdering Facility: [facility] Address: [address] [place] [address] Performed By: #### 5 7021-8 ####[facility] LABORATORYCLIA [id number] [place] [id number] [place] WBC (Bld) [#/Vol] 8.01 10*3/uL Normal 3.70-11.00 [facility] Comment on above: Order Comment: Speci men Type: BLOOD SPECIMENOrdering Facility: [facility] Address: [address] [place] [address] Performed By: #### 5 7021-8 ####[facility] LABORATORYCLIA [id number] [place] [address] [place] Eosinophils/100 WBC Auto (Bl d)on 08-27-2023 Eosinophils/100 WBC (Bld) 4.1 % [facility] Erythrocyte distribution wid th Auto (RBC) [Ratio]on 08-27-2023 Erythrocyte distribution width (RBC) [Ratio] 15.1 % 11.5-15.0 [facility] Hematocrit Auto (Bld) [Volum e fraction]on 08-27-2023 Hematocrit (Bld) [Volume fraction] 36.2 % 36.0-46.0 [facility] Hemoglobin [Mass/volume] in Bloodon 08-27-2023 Hemoglobin (Bld) [Mass/Vol] 12.0 g/dL 11.5-15.5 [facility] Laboratory - Chemistry and C hemistry - challengeon 08-27-2023 Calcium [Mass/Vol] 9.0 mg/dL 8.5-10.2 [facility] Chloride [Moles/Vol] 103 mmol/L 97-105 [facility] CO2 [Moles/Vol] 27 mmol/L 22-30 [facility] Creatinine [Mass/Vol] 0.69 mg/dL 0.58-0.96 [facility] Glucose [Mass/Vol] 103 mg/dL 74-99 [facility] Comment on above: The [place] Diabete [place] Association (ADA) provides guidance for [...] Standards of Medical Care in Diabetes 2016, [place] [employer]. Diabetes Care. 2016.39(Suppl 1). Potassium [Moles/Vol] 4.2 mmol/L 3.7-5.1 [facility] Sodium [Moles/Vol] 139 mmol/L 136-144 [facility] Urea nitrogen [Mass/Vol] 12 mg/dL 7-21 [facility] Laboratory - Hematology and Cell countson 08-27-2023 Eosinophils (Bld) [#/Vol] 0.33 10*3/uL <0.46 [facility] Immature granulocytes (Bld) [#/Vol] 0.04 10*3/uL <0.10 [facility] Immature granulocytes/100 WBC (Bld) 0.5 % [facility] Leukocytes [#/volume] correc french for nucleated erythrocytes in Blood by Automated counon 08-27-2023 WBC corrected for nucl RBC Auto (Bld) [#/Vol] 8.01 k/uL 3.70-11.00 [facility] Lymphocytes Auto (Bld) [#/Vo l]on 08-27-2023 Lymphocytes (Bld) [#/Vol] 1.04 10*3/uL 1.00-4.00 [facility] Lymphocytes/100 WBC Auto (Bl d)on 08-27-2023 Lymphocytes/100 WBC (Bld) 13.0 % [facility] MCH Auto (RBC) [Entitic mass ]on 08-27-2023 MCH (RBC) [Entitic mass] 29.9 pg 26.0-34.0 [facility] MCHC Auto (RBC) [Mass/Vol]on 08-27-2023 MCHC (RBC) [Mass/Vol] 33.1 g/dL 30.5-36.0 [facility] MCV Auto (RBC) [Entitic vol] on 08-27-2023 MCV (RBC) [Entitic vol] 90.0 fL 80.0-100.0 [facility] Monocytes Auto (Bld) [#/Vol] on 08-27-2023 Monocytes (Bld) [#/Vol] 0.59 10*3/uL <0.87 [facility] Monocytes/100 WBC Auto (Bld) on 08-27-2023 Monocytes/100 WBC (Bld) 7.4 % [facility] NURSING PROGon 08-27-2023 NURSING PROG Normal [facility] Neutrophils Auto (Bld) [#/Vo l]on 08-27-2023 Neutrophils (Bld) [#/Vol] 6.00 10*3/uL 1.45-7.50 [facility] Neutrophils/100 WBC Auto (Bl d)on 08-27-2023 Neutrophils/100 WBC (Bld) 74.9 % [facility] No Panel Informationon 08-27 Estimated GFR (CKD-EPI) 93 mL/min/1.73m??? >=60 [facility] Comment on above: Estimated Glomerular Filtration [...] 08-27-2023 Nucleated RBC (Bld) [#/Vol] 10*3/uL <0.01 [facility] Nucleated erythrocytes [Pres ence] in Blood by Automated counton 08-27-2023 Nucleated RBC Auto Ql (Bld) 0.0 /100{WBC} [facility] Platelet mean volume Auto (B ld) [Entitic vol]on 08-27-2023 Platelet mean volume (Bld) [Entitic vol] 8.7 fL 9.0-12.7 [facility] Platelets Auto (Bld) [#/Vol] on 08-27-2023 Platelets (Bld) [#/Vol] 265 10*3/uL 150-400 [facility] RBC Auto (Bld) [#/Vol]on RBC (Bld) [#/Vol] 4.02 10*6/uL 3.90-5.20 [facility] Serum or plasma anion gap de terminationon 08-27-2023 Anion gap [Moles/Vol] 9 mmol/L -18 [facility] Basic metabolic 2000 panelon 08-26-2023 Anion gap [Moles/Vol] 10 mmol/L Normal -18 [facility] Comment on above: Order Comment: Speci men Type: BLOOD SPECIMENOrdering Facility: [facility] Address: [address] [place] [address] Performed By: #### 2 4321-2 ####[facility] LABORATORYCLIA [id number] [place] [id number] [place] Calcium [Mass/Vol] 8.7 mg/dL Normal 8.5-10.2 [facility] Comment on above: Order Comment: Speci men Type: BLOOD SPECIMENOrdering Facility: [facility] Address: [address] [place] [address] Performed By: #### 2 4321-2 ####[facility] LABORATORYCLIA [id number] [place] [id number] [place] Chloride [Moles/Vol] 107 mmol/L High 97-105 [facility] Comment on above: Order Comment: Speci men Type: BLOOD SPECIMENOrdering Facility: [facility] Address: [address] [place] [address] Performed By: #### 2 4321-2 ####[facility] LABORATORYCLIA [id number] [place] [id number] [place] CO2 [Moles/Vol] 25 mmol/L Normal 22-30 [facility] Comment on above: Order Comment: Speci men Type: BLOOD SPECIMENOrdering Facility: [facility] Address: [address] [place] [address] Performed By: #### 2 4321-2 ####[facility] LABORATORYCLIA [id number] [place] [id number] [place] Creatinine [Mass/Vol] 0.69 mg/dL Normal 0.58-0.96 [facility] Comment on above: Order Comment: Speci men Type: BLOOD SPECIMENOrdering Facility: [facility] Address: [address] [place] [address] Performed By: #### 2 4321-2 ####[facility] LABORATORYCLIA [id number] [place] [address] [place] Creatinine and Glomerular filtration rate.predicted panel (S/P/Bld) 93 mL/min/1.73m??? Normal >=60 [facility] Comment on above: Order Comment: Mason simpson Type: BLOOD SPECIMENOrdering Facility: [facility] Address: [address] [place] [address] Result Comment: Farhana mated Glomerular Filtration Rate [...] actual GFR. Performed By: #### 2 4321-2 ####[facility]ORATORYCLIA [id number] [place] [address] [place] Glucose [Mass/Vol] 84 mg/dL Normal 74-99 [facility] Comment on above: Order Comment: Mason simpson Type: BLOOD SPECIMENOrdering Facility: [facility] Address: [address] [place] [address] Result Comment: The [place] [employer] (ADA) provides guidance for cutoff [...] Standards of Medical Care in Diabetes 2016, [place] [employer]. Diabetes Care. 2016.39(Suppl 1). Performed By: #### 2 4321-2 ####[facility] LABORATORYCLIA [id number] [place] [id number] [place] Potassium [Moles/Vol] 3.5 mmol/L Low 3.7-5.1 [facility] Comment on above: Order Comment: Speci men Type: BLOOD SPECIMENOrdering Facility: [facility] Address: [address] [place] [address] Performed By: #### 2 4321-2 ####[facility] LABORATORYCLIA [id number] [place] [id number] [place] Sodium [Moles/Vol] 142 mmol/L Normal 136-144 [facility] Comment on above: Order Comment: Speci men Type: BLOOD SPECIMENOrdering Facility: [facility] Address: [address] [place] [address] Performed By: #### 2 4321-2 ####[facility] LABORATORYCLIA [id number] [place] [address] [place] Urea nitrogen [Mass/Vol] 11 mg/dL Normal 7-21 [facility] Comment on above: Order Comment: Speci men Type: BLOOD SPECIMENOrdering Facility: [facility] Address: [address] [place] [address] Performed By: #### 2 4321-2 ####[facility] LABORATORYCLIA [id number] [place] [address] [place] Basophils Auto (Bld) [#/Vol] on 08-26-2023 Basophils (Bld) [#/Vol] 0.04 10*3/uL <0.11 [facility] Basophils/100 WBC Auto (Bld) on 08-26-2023 Basophils/100 WBC (Bld) 0.5 % [facility] Blood manual differential co mment interpretation narrativeon 08-26-2023 Manual differential comment Ankush (Bld) [Interp] Auto [facility] CASE MGT INIT ASSESon 2023 CASE MGT INIT ASSES Normal [facility] CBC W Auto Differential pane l (Bld)on 08-26-2023 Basophils (Bld) [#/Vol] 0.04 10*3/uL Normal <0.11 [facility] Comment on above: Order Comment: Speci men Type: BLOOD SPECIMENOrdering Facility: [facility] Address: [address] [place] [address] Performed By: #### 5 7021-8 ####[facility] LABORATORYCLIA [id number] [place] [id number] [place] Basophils/100 WBC (Bld) 0.5 % Normal [facility] Comment on above: Order Comment: Speci men Type: BLOOD SPECIMENOrdering Facility: [facility] Address: [address] [place] [address] Performed By: #### 5 7021-8 ####[facility] LABORATORYCLIA [id number] [place] [address] [place] Differential cell count method Nom (Bld) Auto Normal [facility] Comment on above: Order Comment: Speci men Type: BLOOD SPECIMENOrdering Facility: [facility] Address: [address] [place] [address] Performed By: #### 5 7021-8 ####[facility] LABORATORYCLIA [id number] [place] [address] [place] Eosinophils (Bld) [#/Vol] 0.29 10*3/uL Normal <0.46 [facility] Comment on above: Order Comment: Speci men Type: BLOOD SPECIMENOrdering Facility: [facility] Address: [address] [place] [address] Performed By: #### 5 7021-8 ####[facility] LABORATORYCLIA [id number] [address] [place] Eosinophils/100 WBC (Bld) 3.6 % Normal [facility] Comment on above: Order Comment: Speci men Type: BLOOD SPECIMENOrdering Facility: [facility] Address: [address] [place] [address] Performed By: #### 5 7021-8 ####[facility] LABORATORYCLIA [id number] [place] [id number] [place] Erythrocyte distribution width (RBC) [Ratio] 15.0 % Normal 11.5-15.0 [facility] Comment on above: Order Comment: Speci men Type: BLOOD SPECIMENOrdering Facility: [facility] Address: [address] [place] [address] Performed By: #### 5 7021-8 ####[facility] LABORATORYCLIA [id number] [place] [id number] [place] Hematocrit (Bld) [Volume fraction] 30.9 % Low 36.0-46.0 [facility] Comment on above: Order Comment: Speci men Type: BLOOD SPECIMENOrdering Facility: [facility] Address: [address] [place] [address] Performed By: #### 5 7021-8 ####[facility] LABORATORYCLIA [id number] [place] [address] [place] Hemoglobin (Bld) [Mass/Vol] 10.2 g/dL Low 11.5-15.5 [facility] Comment on above: Order Comment: Speci men Type: BLOOD SPECIMENOrdering Facility: [facility] Address: [address] [place] [address] Performed By: #### 5 7021-8 ####[facility] LABORATORYCLIA [id number] [place] [address] [place] Immature granulocytes (Bld) [#/Vol] 0.10 10*3/uL High <0.10 [facility] Comment on above: Order Comment: Speci men Type: BLOOD SPECIMENOrdering Facility: [facility] Address: [address] [place] [address] Performed By: #### 5 7021-8 ####[facility] LABORATORYCLIA [id number] [place] [id number] [place] Immature granulocytes/100 WBC (Bld) 1.2 % Normal [facility] Comment on above: Order Comment: Speci men Type: BLOOD SPECIMENOrdering Facility: [facility] Address: [address] [place] [address] Performed By: #### 5 7021-8 ####[facility] LABORATORYCLIA [id number] [place] [address] [place] Lymphocytes (Bld) [#/Vol] 0.97 10*3/uL Low 1.00-4.00 [facility] Comment on above: Order Comment: Speci men Type: BLOOD SPECIMENOrdering Facility: [facility] Address: [address] [place] [address] Performed By: #### 5 7021-8 ####[facility] LABORATORYCLIA [id number] [address] [place] Lymphocytes/100 WBC (Bld) 12.0 % Normal [facility] Comment on above: Order Comment: Speci men Type: BLOOD SPECIMENOrdering Facility: [facility] Address: [address] [place] [address] Performed By: #### 5 7021-8 ####[facility] LABORATORYCLIA [id number] [place] [address] [place] MCH (RBC) [Entitic mass] 29.6 pg Normal 26.0-34.0 [facility] Comment on above: Order Comment: Speci men Type: BLOOD SPECIMENOrdering Facility: [facility] Address: [address] [place] [address] Performed By: #### 5 7021-8 ####[facility] LABORATORYCLIA [id number] [place] [address] [place] MCHC (RBC) [Mass/Vol] 33.0 g/dL Normal 30.5-36.0 [facility] Comment on above: Order Comment: Speci men Type: BLOOD SPECIMENOrdering Facility: [facility] Address: [address] [place] [address] Performed By: #### 5 7021-8 ####[facility] LABORATORYCLIA [id number] [place] [address] [place] MCV (RBC) [Entitic vol] 89.6 fL Normal 80.0-100.0 [facility] Comment on above: Order Comment: Speci men Type: BLOOD SPECIMENOrdering Facility: [facility] Address: [address] [place] [address] Performed By: #### 5 7021-8 ####[facility] LABORATORYCLIA [id number] [place] [address] [place] Monocytes (Bld) [#/Vol] 0.81 10*3/uL Normal <0.87 [facility] Comment on above: Order Comment: Speci men Type: BLOOD SPECIMENOrdering Facility: [facility] Address: [address] [place] [address] Performed By: #### 5 7021-8 ####[facility] LABORATORYCLIA [id number] [place] [id number] [place] Monocytes/100 WBC (Bld) 10.0 % Normal [facility] Comment on above: Order Comment: Speci men Type: BLOOD SPECIMENOrdering Facility: [facility] Address: [address] [place] [address] Performed By: #### 5 7021-8 ####[facility] LABORATORYCLIA [id number] [place] [id number] [place] Neutrophils (Bld) [#/Vol] 5.88 10*3/uL Normal 1.45-7.50 [facility] Comment on above: Order Comment: Speci men Type: BLOOD SPECIMENOrdering Facility: [facility] Address: [address] [place] [address] Performed By: #### 5 7021-8 ####[facility] LABORATORYCLIA [id number] [place] [id number] [place] Neutrophils/100 WBC (Bld) 72.7 % Normal [facility] Comment on above: Order Comment: Speci men Type: BLOOD SPECIMENOrdering Facility: [facility] Address: [address] [place] [address] Performed By: #### 5 7021-8 ####[facility] LABORATORYCLIA [id number] [place] [id number] [place] Nucleated RBC (Bld) [#/Vol] 10*3/uL Normal <0.01 [facility] Comment on above: Order Comment: Speci men Type: BLOOD SPECIMENOrdering Facility: [facility] Address: [address] [place] [address] Performed By: #### 5 7021-8 ####[facility] LABORATORYCLIA [id number] [place] [id number] [place] Nucleated RBC/100 WBC (Bld) [Ratio] 0.0 /100 WBC Normal [facility] Comment on above: Order Comment: Speci men Type: BLOOD SPECIMENOrdering Facility: [facility] Address: [address] [place] [address] Performed By: #### 5 7021-8 ####[facility] LABORATORYCLIA [id number] [place] [id number] [place] Platelet mean volume (Bld) [Entitic vol] 8.9 fL Low 9.0-12.7 [facility] Comment on above: Order Comment: Speci men Type: BLOOD SPECIMENOrdering Facility: [facility] Address: [address] [place] [address] Performed By: #### 5 7021-8 ####[facility] LABORATORYCLIA [id number] [place] [id number] [place] Platelets (Bld) [#/Vol] 230 10*3/uL Normal 150-400 [facility] Comment on above: Order Comment: Speci men Type: BLOOD SPECIMENOrdering Facility: [facility] Address: [address] [place] [address] Performed By: #### 5 7021-8 ####[facility] LABORATORYCLIA [id number] [place] [id number] [place] RBC (Bld) [#/Vol] 3.45 10*6/uL Low 3.90-5.20 [facility] Comment on above: Order Comment: Speci men Type: BLOOD SPECIMENOrdering Facility: [facility] Address: [address] [place] [address] Performed By: #### 5 7021-8 ####[facility] LABORATORYCLIA [id number] [place] [id number] [place] WBC (Bld) [#/Vol] 8.09 10*3/uL Normal 3.70-11.00 [facility] Comment on above: Order Comment: Speci men Type: BLOOD SPECIMENOrdering Facility: [facility] Address: [address] [place] [address] Performed By: #### 5 7021-8 ####[facility]ORATORYCLIA [id number] [place] [address] [place] CONSULTon 08-26-2023 CONSULT Normal [facility] Eosinophils/100 WBC Auto (Bl d)on 08-26-2023 Eosinophils/100 WBC (Bld) 3.6 % [facility] Erythrocyte distribution wid th Auto (RBC) [Ratio]on 08-26-2023 Erythrocyte distribution width (RBC) [Ratio] 15.0 % 11.5-15.0 [facility] Hematocrit Auto (Bld) [Volum e fraction]on 08-26-2023 Hematocrit (Bld) [Volume fraction] 30.9 % 36.0-46.0 [facility] Hemoglobin [Mass/volume] in Bloodon 08-26-2023 Hemoglobin (Bld) [Mass/Vol] 10.2 g/dL 11.5-15.5 [facility] Laboratory - Chemistry and C hemistry - challengeon 08-26-2023 Calcium [Mass/Vol] 8.7 mg/dL 8.5-10.2 [facility] Chloride [Moles/Vol] 107 mmol/L 97-105 [facility] CO2 [Moles/Vol] 25 mmol/L 22-30 [facility] Creatinine [Mass/Vol] 0.69 mg/dL 0.58-0.96 [facility] Glucose [Mass/Vol] 84 mg/dL 74-99 [facility] Comment on above: The [place] Diab[employer] Association (ADA) provides guidance for [...] Standards of Medical Care in Diabetes 2016, [place] [employer]. Diabetes Care. 2016.39(Suppl 1). Potassium [Moles/Vol] 3.5 mmol/L 3.7-5.1 [facility] Sodium [Moles/Vol] 142 mmol/L 136-144 [facility] Urea nitrogen [Mass/Vol] 11 mg/dL 7- [facility] Laboratory - Hematology and Cell countson 08-26-2023 Eosinophils (Bld) [#/Vol] 0.29 10*3/uL <0.46 [facility] Immature granulocytes (Bld) [#/Vol] 0.10 10*3/uL <0.10 [facility] Immature granulocytes/100 WBC (Bld) 1.2 % [facility] Leukocytes [#/volume] correc french for nucleated erythrocytes in Blood by Automated counon 08-26-2023 WBC corrected for nucl RBC Auto (Bld) [#/Vol] 8.09 k/uL 3.70-11.00 [facility] Lymphocytes Auto (Bld) [#/Vo l]on 08-26-2023 Lymphocytes (Bld) [#/Vol] 0.97 10*3/uL 1.00-4.00 [facility] Lymphocytes/100 WBC Auto (Bl d)on 08-26-2023 Lymphocytes/100 WBC (Bld) 12.0 % [facility] MCH Auto (RBC) [Entitic mass ]on 08-26-2023 MCH (RBC) [Entitic mass] 29.6 pg 26.0-34.0 [facility] MCHC Auto (RBC) [Mass/Vol]on 08-26-2023 MCHC (RBC) [Mass/Vol] 33.0 g/dL 30.5-36.0 [facility] MCV Auto (RBC) [Entitic vol] on 08-26-2023 MCV (RBC) [Entitic vol] 89.6 fL 80.0-100.0 [facility] Monocytes Auto (Bld) [#/Vol] on 08-26-2023 Monocytes (Bld) [#/Vol] 0.81 10*3/uL <0.87 [facility] Monocytes/100 WBC Auto (Bld) on 08-26-2023 Monocytes/100 WBC (Bld) 10.0 % [facility] Neutrophils Auto (Bld) [#/Vo l]on 08-26-2023 Neutrophils (Bld) [#/Vol] 5.88 10*3/uL 1.45-7.50 [facility] Neutrophils/100 WBC Auto (Bl d)on 08-26-2023 Neutrophils/100 WBC (Bld) 72.7 % [facility] No Panel Informationon 08-26 Estimated GFR (CKD-EPI) 93 mL/min/1.73m??? >=60 [facility] Comment on above: Estimated Glomerular Filtration [...] 08-26-2023 Nucleated RBC (Bld) [#/Vol] 10*3/uL <0.01 [facility] Nucleated erythrocytes [Pres ence] in Blood by Automated counton 08-26-2023 Nucleated RBC Auto Ql (Bld) 0.0 /100{WBC} [facility] Platelet mean volume Auto (B ld) [Entitic vol]on 08-26-2023 Platelet mean volume (Bld) [Entitic vol] 8.9 fL 9.0-12.7 [facility] Platelets Auto (Bld) [#/Vol] on 08-26-2023 Platelets (Bld) [#/Vol] 230 10*3/uL 150-400 [facility] RBC Auto (Bld) [#/Vol]on RBC (Bld) [#/Vol] 3.45 10*6/uL 3.90-5.20 [facility] Serum or plasma anion gap de terminationon 08-26-2023 Anion gap [Moles/Vol] 10 mmol/L 9-18 [facility] THERAPY NTon 08-26-2023 THERAPY NT Normal [facility] THERAPY NT Normal [facility] ANES POSTPROC EVALon 024 ANES POSTPROC EVAL Normal [facility] ANES PRE-OPon 08-25-2023 ANES PRE-OP Normal [facility] BRIEF OP NOTon 08-25-2023 BRIEF OP NOT Normal [facility] NURSING PROGon 08-25-2023 NURSING PROG Normal [facility] NURSING PROG Normal [facility] OPERATIVE NOon 08-25-2023 OPERATIVE NO [facility] SURGICAL PATHOLOGYon 024 AMENDED REPORT DETAIL Normal [facility] Comment on above: Order Comment: Speci men Type: TISSUE SPECIMENOrdering Facility: [facility] Address: [address] [place] [address] Result Comment: Amen ded: 09/13/2023 3:21 PMThis [...] 6:21 PM EST. Performed By: #### S ####[facility] LABORATORYCLIA [id number] [place] [id number] [facility] LABIA [id number] [address] BLOCK FOR ADDITIONAL BIOMARKERS/MOLECULAR STUDIES No evidence of residual invasive adenocarcinoma [facility] Comment on above: Order Comment: Speci men Type: TISSUE SPECIMENOrdering Facility: [facility] Address: [address] [place] [address] Performed By: #### S ####[facility] LABORATORYIA [id number] [place] [id number] [facility] LABIA [id number] [address] CASE REPORT Normal [facility] Comment on above: Order Comment: Speci men Type: TISSUE SPECIMENOrdering Facility: [facility] Address: [address] [place] [address] Result Comment: Surg [facility] Pathology Report Case: [id number] Provider: Laisha Singer MD Collected: 08/25/2023 11:42 AMOrdering Location: [facility] Received: 08/25/2023 12:13 PM Operating RoomPathologist: Oscar Marshall MDSpecimens: A) - COLON RESECTION, low anterior resection B) - MARGIN GI, distal margin Performed By: #### S ####[facility] LABORATORYCLIA [id number] [address] LABCLIA [id number] [address] CLINICAL HISTORY Normal [facility] Comment on above: Order Comment: Speci men Type: TISSUE SPECIMENOrdering Facility: [facility] Address: [address] [place] [address] Result Comment: Pre- op diagnosis:Rectal cancer (HCC) [C20] Performed By: #### S ####[facility] LABORATORYCLIA [id number] [address] LABCLIA [id number] [address] FINAL DIAGNOSIS Normal [facility] Comment on above: Order Comment: Speci men Type: TISSUE SPECIMENOrdering Facility: [facility] Address: [address] [place] [address] Result Comment: A. S igmoid colon and rectum, resection:- No evidence of residual invasive adenocarcinoma (see synoptic report).- Fifteen lymph nodes, negative for malignancy (0/15).B. Additional distal margin, excision:- Segment of rectum with no diagnostic abnormality.JEL 4Amendment electronically signed by sOcar Marshall MD on 09/13/2023 at 3:24 PM Performed By: #### S ####[facility] LABORATORYCLIA [id number] [address] LABCLIA [id number] [place] [address] [place] FINAL PERFORMING LAB Normal [facility] Comment on above: Order Comment: Speci men Type: TISSUE SPECIMENOrdering Facility: [facility] Address: [address] [place] [address] Result Comment: Diag nostic interpretation performed at [facility], [address] [place] [address] CLIA# [id number] Director: Dheeraj Suarez M.D. Performed By: #### S ####[facility] LABORATORYCLIA [id number] [address] LABCLIA [id number] [address] [facility] GROSS DESCRIPTION Normal [facility] Comment on above: Order Comment: Speci men Type: TISSUE SPECIMENOrdering Facility: [facility] Address: [address] [place] [address] Result Comment: A. C OLON RESECTIONReceived in [...] with a wall thickness of 0.9 cm. Pricing Clerk sections are submitted as follows: A1 ulcer [...] 28, 2023 1:59 PMGross examination performed at [facility], [address] [place] [address]. MARGIN GIReceived in formalin designated distal margin is a segment of bowel that measures 0.5 cm in length and 1.2 cm in diameter. The specimen cannot be inked due to the size of the specimen. The specimen is serially sectioned and entirely submitted in one cassette.WE August 25, 2023 1:52 PMGross examination performed at [facility], [address] [place], [place] [id number] results: Previously reported on 08/31/2023 at 6:21 PM EST. Performed By: #### S ####[facility] LABORATORYCLIA [id number] [place] [id number] [place] [facility] LABCLIA [id number] [facility] [id number] [place], [place] [id number] [facility] SYNOPTIC REPORT Normal [facility] Comment on above: Order Comment: Speci men Type: TISSUE SPECIMENOrdering Facility: [facility] Address: [address] [place] [address] Result Comment: COLO N AND RECTUM: Resection, Including Transanal Disk Excision of Rectal NeoplasmsCOLON AND RECTUM: RESECTION - All Auotytdsk0gy Edition - Protocol posted: 12/29/2021PECIMEN Procedure: Low [...] pN Category: pN0 Performed By: #### S ####[facility] LABORATORYCLIA [id number] [address] LABCLIA [id number] [address] ANES POSTPROC EVALon 024 ANES POSTPROC EVAL HNO ID: [id number] Author: PADMINI BANUELOS MD Service: Anesthesiology Author [...] July 27, 2023 TIME: 3:25 PM CSN: [id number] [facility] ANES PRE-OPon 07-27-2023 ANES PRE-OP HNO ID: [id number] Author: PADMINI BANUELOS MD Service: Anesthesiology Author Type: Anesthesiologist Type: Anesthesia Preprocedure Evaluation Filed: 07/27/2023 14:09 Note Text: ANESTHESIOLOGY DAY OF SURGERY NOTE : 1955 Procedure Information Date/Time: 07/27/23 1430 Scheduled providers: Laisha Singer MD; Padmini Banuelos MD; Bruna Hicks AA; Jolene Zhong, application security engineer: SIGMOIDOSCOPY Location: Procedures Estimated body mass index [...] Take 1 Each by mouth once daily. [employer] guzman mitochondrial micronutrients and a smart [...] July 27, 2023 TIME: 2:08 PM CSN: [id number] Normal [facility] Flexible Sigmoidoscopyon Flexible sigmoidoscopy [facility] Gastrointestinal Endoscopy Patient Name: Evan Gill Procedure Date: 07/27/2023 2:08 PM Date of : 1955 Admit Type: Outpatient Age: 67 Room: [place] [address] Gender: Female Note Status: Finalized Attending MD: Laisha Singer MD, [id number] Procedure: Flexible Sigmoidoscopy Indications: Personal history of [...] to home. Procedure Code(s): --- Professional --- 86303, Sigmoidoscopy, flexible; diagnostic, including collection of specimen(s) by brushing or washing, when performed (separate procedure) Diagnosis Code(s): --- Professional --- K62.6, Ulcer of anus and rectum Z85.048, Personal history of other malignant neoplasm of rectum, rectosigmoid junction, and anus Z01.818, Encounter for other preprocedural examination CPT copyright 2020 [place] [employer]. All rights reserved. The codes documented in this report are preliminary and upon flask cleaner review may be revised to meet current compliance requirements. Attending Participation: I personally performed the entire procedure. Scope In: 2:18:06 PM Scope Out: 2:22:56 PM MD Laisha Quinteros MD 07/27/2023 2:28:08 PM This report has been signed electronically by Laisha Singer MD Number of Addenda: 0 Note Initiated On: 07/27/2023 2:08 PM Estimated Blood Loss: Estimated blood loss: none. Normal [facility] HISTORY PHYSICALon HISTORY PHYSICAL HNO ID: [id number] Author: LAISHA SINGER MD Service: Colorectal Author [...] DATE: July 27, 2023 TIME: 2:07 PM [facility] Basophils Auto (Bld) [#/Vol] Ordered By: David Reyes on 06-26-2023 Basophils (Bld) [#/Vol] 0.0 10*3/uL 0.0-0.2 [facility] Basophils/100 WBC Auto (Bld) Ordered By: David Reyes on 06-26-2023 Basophils/100 WBC (Bld) 1.0 % . [facility] Calcium [Mass/volume] in Ser um or PlasmaOrdered By: David Reyes on 06-26-2023 Calcium [Mass/Vol] 8.6 mg/dL 8.6-10.3 [facility] Carbon dioxide, total [Moles /volume] in Serum or PlasmaOrdered By: David Reyes on 06-26-2023 CO2 [Moles/Vol] 24.5 mmol/L 21.0-31.[address] [facility] Chloride [Moles/volume] in S jeevan or PlasmaOrdered By: David Reyes on 06-26-2023 Chloride [Moles/Vol] 109 mmol/L 98-107 [facility] Creatinine [Mass/volume] in Serum or PlasmaOrdered By: David Reyes on 06-26-2023 Creatinine [Mass/Vol] 0.74 mg/dL 0.60-1.20 [facility] Eosinophils Auto (Bld) [#/Vo l]Ordered By: David Reyes on 06-26-2023 Eosinophils (Bld) [#/Vol] 0.2 10*3/uL 0.0-0.45 [facility] Eosinophils/100 WBC Auto (Bl d)Ordered By: David Reyes on 06-26-2023 Eosinophils/100 WBC (Bld) 4.3 % . [facility] Erythrocyte distribution wid th Auto (RBC) [Ratio]Ordered By: David Reyes on 06-26-2023 Erythrocyte distribution width (RBC) [Ratio] 15.0 % 11.9-15.3 [facility] Glucose [Mass/volume] in Ser um or PlasmaOrdered By: David Reyes on 06-26-2023 Glucose [Mass/Vol] 91 mg/dL 70-100 [facility] Comment on above: ADA recommended refe rence rangeRandom Glucose Reference Range is dependent on time and content of last meal. Glucose of more than 200 mg/dL in a nonstressed, ambulatory subject supports the diagnosis of Diabetes Mellitus. Hematocrit Auto (Bld) [Volum e fraction]Ordered By: David Reyes on 06-26-2023 Hematocrit (Bld) [Volume fraction] 33.0 % 34.0-46.4 [facility] Hemoglobin [Mass/volume] in BloodOrdered By: David Reyes on 06-26-2023 Hemoglobin (Bld) [Mass/Vol] 11.1 g/dL 11.8-15.4 [facility] Leukocytes [#/volume] correc french for nucleated erythrocytes in Blood by Automated counOrdered By: David Reyes on 06-26-2023 WBC corrected for nucl RBC Auto (Bld) [#/Vol] 4.3 10*3/uL 3.8-11.6 [facility] Lymphocytes Auto (Bld) [#/Vo l]Ordered By: David Reyes on 06-26-2023 Lymphocytes (Bld) [#/Vol] 0.9 10*3/uL 1.00-4.8 [facility] Lymphocytes/100 WBC Auto (Bl d)Ordered By: David Reyes on 06-26-2023 Lymphocytes/100 WBC (Bld) 21.8 % . [facility] MCH Auto (RBC) [Entitic mass ]Ordered By: David Reyes on 06-26-2023 MCH (RBC) [Entitic mass] 29.7 pg 24.7-34.3 [facility] MCHC Auto (RBC) [Mass/Vol]Or dered By: David Reyes on 06-26-2023 MCHC (RBC) [Mass/Vol] 33.5 g/dL 32.0-35.0 [facility] MCV Auto (RBC) [Entitic vol] Ordered By: David Reyes on 06-26-2023 MCV (RBC) [Entitic vol] 88.6 fL 80-100 [facility] Monocytes Auto (Bld) [#/Vol] Ordered By: David Reyes on 06-26-2023 Monocytes (Bld) [#/Vol] 0.4 10*3/uL 0.0-0.8 [facility] Monocytes/100 WBC Auto (Bld) Ordered By: David Reyes on 06-26-2023 Monocytes/100 WBC (Bld) 8.2 % . [facility] Neutrophils Auto (Bld) [#/Vo l]Ordered By: David Reyes on 06-26-2023 Neutrophils (Bld) [#/Vol] 2.8 10*3/uL 1.8-7.7 [facility] Neutrophils/100 WBC Auto (Bl d)Ordered By: David Reyes on 06-26-2023 Neutrophils/100 WBC (Bld) 64.7 % . [facility] No Panel InformationOrdered By: David Reyes on 06-26-2023 Estimated GFR (CKD-EPI) > 60.0 mL/Min [facility] Creatinine Clearance (Chem 57.31 [facility] Nucleated erythrocytes [Pres ence] in Blood by Automated countOrdered By: David Reyes on 06-26-2023 Nucleated RBC Auto Ql (Bld) 0.0 /100{WBC} 0-0.5 [facility] Platelet mean volume Auto (B ld) [Entitic vol]Ordered By: David Reyes on 06-26-2023 Platelet mean volume (Bld) [Entitic vol] 6.5 fL 6.3-10.7 [facility] Platelets Auto (Bld) [#/Vol] Ordered By: David Reyes on 06-26-2023 Platelets (Bld) [#/Vol] 306 10*3/uL 150-450 [facility] Potassium [Moles/volume] in Serum or PlasmaOrdered By: David Reyes on 06-26-2023 Potassium [Moles/Vol] 4.1 mmol/L 3.5-5.1 [facility] RBC Auto (Bld) [#/Vol]Ordere d By: David Reyes on 06-26-2023 RBC (Bld) [#/Vol] 3.73 10*6/uL 3.60-5.00 [facility] Serum or plasma anion gap de terminationOrdered By: David Reyes on 06-26-2023 Anion gap [Moles/Vol] 11.6 mmol/L 6.0-15.0 [facility] Sodium [Moles/volume] in Ser um or PlasmaOrdered By: David Reyes on 06-26-2023 Sodium [Moles/Vol] 141 mmol/L 136-145 [facility] Urea nitrogen [Mass/volume] in Serum or PlasmaOrdered By: David Reyes on 06-26-2023 Urea nitrogen [Mass/Vol] 21 mg/dL 7-25 [facility] WBC Auto (Bld) [#/Vol]Ordere d By: David Reyes on 06-26-2023 WBC (Bld) [#/Vol] 4.3 10*3/uL 3.8-11.6 [facility] MRI RECTUM WO/W IVCONon 12-0 [facility] ANES POSTPROC EVALon 06-08-2 023 ANES POSTPROC EVAL HNO ID: [id number] Author: Dvaid Carpenter MD Service: Anesthesiology Author Type: Physician Type: Anesthesia Postprocedure Evaluation Filed: 06/08/2023 1:49 PM Note Text: POST ANESTHESIA EVALUATION NOTE : 1955 Procedure Summary Date: 06/08/23 Room / Location: Procedures Anesthesia Start: 1251 Anesthesia Stop: 1306 Procedure: SIGMOIDOSCOPY Diagnosis: Rectal cancer (HCC) (Follow-up of rectal cancer) Scheduled Providers: Laisha Sinegr MD; David Carpenter MD; Prachi Lozano AA; [...] June 08, 2023 TIME: 1:48 PM CSN: [id number] [facility] ANES PRE-OPon 06-08-2023 ANES PRE-OP HNO ID: [id number] Author: David Carpenter MD Service: Anesthesiology Author Type: Physician Type: Anesthesia Preprocedure Evaluation Filed: 06/08/2023 12:43 PM Note Text: ANESTHESIOLOGY DAY OF SURGERY NOTE : 1955 Procedure Information Date/Time: 06/08/23 1300 Scheduled providers: Laisha Singer MD; David Carpenter MD; Prachi Lozano AA; Brunilda Fonatnez RN Procedure: SIGMOIDOSCOPY Location: Procedures Estimated body [...] Take 1 Each by mouth once daily. [employer] supplies guzman mitochondrial micronutrients and a smart [...] June 08, 2023 TIME: 12:43 PM CSN: [id number] Normal [facility] CNPNon 06-08-2023 CNPN [facility] Flexible Sigmoidoscopyon Flexible sigmoidoscopy [facility] Gastrointestinal Endoscopy Patient Name: Evan Gill Procedure Date: 06/08/2023 12:46 PM Date of : 1955 Admit Type: Outpatient Age: 67 Room: [place] [address] Gender: Female Note Status: Finalized Attending MD: [...] present medications. Procedure Code(s): --- Professional --- 29027, Sigmoidoscopy, flexible; diagnostic, including collection of specimen(s) by brushing or washing, when performed (separate procedure) Diagnosis Code(s): --- Professional --- K62.89, Other specified diseases of anus and rectum C20, Malignant neoplasm of rectum K64.8, Other hemorrhoids CPT copyright 2020 [employer]. All rights reserved. The codes documented in this report are preliminary and upon flask cleaner review may be revised to meet current compliance requirements. Attending Participation: I personally performed the entire procedure. Scope In: 12:58:00 PM Scope Out: 1:03:43 PM MD Laisha Quinteros MD 06/08/2023 1:11:49 PM This report has been signed electronically by Laisha Singer MD Number of Addenda: 0 Note Initiated On: 06/08/2023 12:46 PM Estimated Blood Loss: Estimated blood loss: none. Normal [facility] HISTORY PHYSICALon HISTORY PHYSICAL HNO ID: [id number] Author: Laisha Singer MD Service: Colorectal Author [...] June 08, 2023 TIME: 12:39 PM Normal [facility] SIGMOIDOSCOPYon 06-08-2023 [facility] Creatine kinase [Enzymatic a ctivity/volume] in Serum or PlasmaOrdered By: Jordan Hare on 04-06-2023 CK [Catalytic activity/Vol] 36 U/L 30-223 [facility] Troponin I.cardiac [Mass/vol ume] in Serum or Plasma by Detection limit <= 0.01 ng/Ordered By: Jordan Hare on 04-06-2023 Troponin I.cardiac DL <= 0.01 ng/mL [Mass/Vol] 5.8 pg/mL 0.0-15.0 [facility] Activated partial thrombopla stin time (aPTT) in platelet poor plasma by coagulation aOrdered By: Gregory Rangel on 04-05-2023 aPTT Coag (PPP) [Time] 27.9 s 25.1-36.5 [facility] Comment on above: A hematocrit value g reater than 55% may lead to inaccurate results in coagulation testing. Patients having hematocrit values >55% require a special collection tube for coagulation studies. Please contact the laboratory at [phone] for redraw instructions. Alanine aminotransferase [En zymatic activity/volume] in Serum or PlasmaOrdered By: Gregory Rangel on 04-05-2023 ALT [Catalytic activity/Vol] 18 U/L 7-52 [facility] Albumin [Mass/volume] in Ser um or Plasma by Bromocresol green (BCG) dye binding methoOrdered By: Gregory Rangel on 04-05-2023 Albumin BCG dye [Mass/Vol] 4.5 g/dL 3.5-5.7 [facility] Alkaline phosphatase [Enzyma tic activity/volume] in Serum or PlasmaOrdered By: Gregory Rangel on 04-05-2023 ALP [Catalytic activity/Vol] 50 U/L 34-104 [facility] Aspartate aminotransferase [ Enzymatic activity/volume] in Serum or PlasmaOrdered By: Gregory Rangel on 04-05-2023 AST [Catalytic activity/Vol] 16 U/L 13-39 [facility] Basophils Auto (Bld) [#/Vol] Ordered By: Gregory Rangel on 04-05-2023 Basophils (Bld) [#/Vol] 0.0 10*3/uL 0.0-0.2 [facility] Basophils/100 WBC Auto (Bld) Ordered By: Gregory Rangel on 04-05-2023 Basophils/100 WBC (Bld) 0.7 % . [facility] Bilirubin.direct [Mass/volum e] in Serum or PlasmaOrdered By: Gregory Rangel on 04-05-2023 Bilirubin.direct [Mass/Vol] 0.10 mg/dL 0.03-0.18 [facility] Bilirubin.total [Mass/volume ] in Serum or PlasmaOrdered By: Gregory Rangel on 04-05-2023 Bilirubin [Mass/Vol] 0.5 mg/dL 0.3-1.0 [facility] Calcium [Mass/volume] in Ser um or PlasmaOrdered By: Gregory Rangel on 04-05-2023 Calcium [Mass/Vol] 9.4 mg/dL 8.6-10.3 [facility] Carbon dioxide, total [Moles /volume] in Serum or PlasmaOrdered By: Gregory Rangel on 04-05-2023 CO2 [Moles/Vol] 23.1 mmol/L 21.0-31.[address] [facility] Chloride [Moles/volume] in S jeevan or PlasmaOrdered By: Gregory Rangel on 04-05-2023 Chloride [Moles/Vol] 102 mmol/L 98-107 [facility] Creatine kinase [Enzymatic a ctivity/volume] in Serum or PlasmaOrdered By: Jordan Hare on 04-05-2023 CK [Catalytic activity/Vol] 43 U/L 30-223 [facility] Creatinine [Mass/volume] in Serum or PlasmaOrdered By: Gregory Rangel on 04-05-2023 Creatinine [Mass/Vol] 0.74 mg/dL 0.60-1.20 [facility] Eosinophils Auto (Bld) [#/Vo l]Ordered By: Gregory Rangel on 04-05-2023 Eosinophils (Bld) [#/Vol] 0.1 10*3/uL 0.0-0.45 [facility] Eosinophils/100 WBC Auto (Bl d)Ordered By: Gregory Rangel on 04-05-2023 Eosinophils/100 WBC (Bld) 1.1 % . [facility] Erythrocyte distribution wid th Auto (RBC) [Ratio]Ordered By: Gregory Rangel on 04-05-2023 Erythrocyte distribution width (RBC) [Ratio] 15.0 % 11.9-15.3 [facility] Globulin Calc (S) [Mass/Vol] Ordered By: Gregory Rangel on 04-05-2023 Globulin (S) [Mass/Vol] 2.5 g/dL [facility] Glucose [Mass/volume] in Ser um or PlasmaOrdered By: Gregory Rangel on 04-05-2023 Glucose [Mass/Vol] 109 mg/dL 70-100 [facility] Comment on above: ADA recommended refe rence rangeRandom Glucose Reference Range is dependent on time and content of last meal. Glucose of more than 200 mg/dL in a nonstressed, ambulatory subject supports the diagnosis of Diabetes Mellitus. Hematocrit Auto (Bld) [Volum e fraction]Ordered By: Gregory Rangel on 04-05-2023 Hematocrit (Bld) [Volume fraction] 35.7 % 34.0-46.4 [facility] Hemoglobin [Mass/volume] in BloodOrdered By: Gregory Rangel 04-05-2023 Hemoglobin (Bld) [Mass/Vol] 11.7 g/dL 11.8-15.4 [facility] INR in Platelet poor plasma by Coagulation assayOrdered By: Gregory Rangel on 04-05-2023 INR Coag (PPP) [Relative time] 1.0 {INR} [facility] Comment on above: INR Therapeutic Rang [...] RBC Auto (Bld) [#/Vol] 6.6 10*3/uL 3.8-11.6 [facility] Lipase [Enzymatic activity/v olume] in Serum or PlasmaOrdered By: Gregory Rangel on 04-05-2023 Lipase [Catalytic activity/Vol] 13.0 U/L 11.0-82.0 [facility] Lymphocytes Auto (Bld) [#/Vo l]Ordered By: Gregory Rangel on 04-05-2023 Lymphocytes (Bld) [#/Vol] 2.6 10*3/uL 1.00-4.8 [facility] Lymphocytes/100 WBC Auto (Bl d)Ordered By: Gregory Rangel on 04-05-2023 Lymphocytes/100 WBC (Bld) 38.8 % . [facility] MCH Auto (RBC) [Entitic mass ]Ordered By: Gregory Rangel on 04-05-2023 MCH (RBC) [Entitic mass] 27.2 pg 24.7-34.3 [facility] MCHC Auto (RBC) [Mass/Vol]Or dered By: Gregory Rangel on 04-05-2023 MCHC (RBC) [Mass/Vol] 32.7 g/dL 32.0-35.0 [facility] MCV Auto (RBC) [Entitic vol] Ordered By: Gregory Rangel on 04-05-2023 MCV (RBC) [Entitic vol] 83.4 fL 80-100 [facility] Monocyte distribution width [Entitic volume] in Blood by AutomatedOrdered By: Gregory Rangel on 04-05-2023 Monocyte distribution width Auto (Bld) [Entitic vol] 19.16 % 0.00-20.00 [facility] Monocytes Auto (Bld) [#/Vol] Ordered By: Gregory Rangel on 04-05-2023 Monocytes (Bld) [#/Vol] 0.5 10*3/uL 0.0-0.8 [facility] Monocytes/100 WBC Auto (Bld) Ordered By: Gregory Rangel on 04-05-2023 Monocytes/100 WBC (Bld) 7.5 % . [facility] Natriuretic peptide B [Mass/ Vol]Ordered By: Gregory Rangel on 04-05-2023 Natriuretic peptide B (Bld) [Mass/Vol] 158.0 pg/mL 5-100 [facility] Neutrophils Auto (Bld) [#/Vo l]Ordered By: Gregory Rangel on 04-05-2023 Neutrophils (Bld) [#/Vol] 3.4 10*3/uL 1.8-7.7 [facility] Neutrophils/100 WBC Auto (Bl d)Ordered By: Gregory Rangel on 04-05-2023 Neutrophils/100 WBC (Bld) 51.9 % . [facility] No Panel InformationOrdered By: Gregory Rangel on 04-05-2023 Estimated GFR (CKD-EPI) > 60.0 mL/Min [facility] Creatinine Clearance (Chem 54.90 [facility] Nucleated erythrocytes [Pres ence] in Blood by Automated countOrdered By: Gregory Rangel on 04-05-2023 Nucleated RBC Auto Ql (Bld) 0.1 /100{WBC} 0-0.5 [facility] Platelet mean volume Auto (B ld) [Entitic vol]Ordered By: Gregory Rangel on 04-05-2023 Platelet mean volume (Bld) [Entitic vol] 6.6 fL 6.3-10.7 [facility] Platelets Auto (Bld) [#/Vol] Ordered By: Gregory Rangel on 04-05-2023 Platelets (Bld) [#/Vol] 312 10*3/uL 150-450 [facility] Potassium [Moles/volume] in Serum or PlasmaOrdered By: Gregory Rangel on 04-05-2023 Potassium [Moles/Vol] 3.5 mmol/L 3.5-5.1 [facility] Protein [Mass/volume] in Ser um or PlasmaOrdered By: Gregory Rangel on 04-05-2023 Protein [Mass/Vol] 7.0 g/dL 6.4-8.9 [facility] Prothrombin time (PT)Ordered By: Gregory Rangel on 04-05-2023 PT Coag (PPP) [Time] 11.9 s 9.0-12.9 [facility] Comment on above: A hematocrit value g reater than 55% may lead to inaccurate results in coagulation testing. Patients having hematocrit values >55% require a special collection tube for coagulation studies. Please contact the laboratory at [phone] for redraw instructions. RBC Auto (Bld) [#/Vol]Ordere d By: Gregory Rangel on 04-05-2023 RBC (Bld) [#/Vol] 4.28 10*6/uL 3.60-5.00 [facility] Serum or plasma albumin/glob ulin mass ratioOrdered By: Gregory Rangel on 04-05-2023 Albumin/Globulin [Mass ratio] 1.8 {ratio} [facility] Serum or plasma anion gap de terminationOrdered By: rGegory Rangel on 04-05-2023 Anion gap [Moles/Vol] 17.4 mmol/L 6.0-15.0 [facility] Serum or plasma non-glucuron idated bilirubin measurement (mass/volume)Ordered By: Gregory Rangel on 04-05-2023 Bilirubin.indirect [Mass/Vol] 0.4 mg/dL [facility] Sodium [Moles/volume] in Ser um or PlasmaOrdered By: Gregory Rangel on 04-05-2023 Sodium [Moles/Vol] 139 mmol/L 136-145 [facility] Troponin I.cardiac [Mass/vol ume] in Serum or Plasma by Detection limit <= 0.01 ng/Ordered By: Jordan Hare on 04-05-2023 Troponin I.cardiac DL <= 0.01 ng/mL [Mass/Vol] 18.5 pg/mL 0.0-15.0 [facility] Urea nitrogen [Mass/volume] in Serum or PlasmaOrdered By: Gregory Rangel on 04-05-2023 Urea nitrogen [Mass/Vol] 20 mg/dL 7-25 [facility] WBC Auto (Bld) [#/Vol]Ordere d By: Gregory Rangel on 04-05-2023 WBC (Bld) [#/Vol] 6.6 10*3/uL 3.8-11.6 [facility] SIGMOIDOSCOPYon 03-16-2023 [facility] ALLIED HEALTHon 03-15-2023 ALLIED HEALTH [facility] MR Pelvis WO contraston - IMPRESSION: 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 Stage: T3c N+ MRF: Involved (tumor margin within 1 mm of MRF Sphincter involvement: No. Suspicious extra mesorectal lymph nodes: Yes EMVI: Yes. Crack Off Person: HENRY Transcribe Date/Time: Mar 15 2023 1:15P Dictated by : ZAYNAB NDIAYE MD This examination was interpreted and the report reviewed and electronically signed by: ZAYNAB NDIAYE MD on Mar 15 2023 1:51PM [facility] * * *Final Report* * * DATE OF EXAM: Mar 15 2023 1:09PM [facility] 0754 - MRI RECTUM WO/W IVCON [...] Grade 1 anterolisthesis of L5 on S1 [facility] Provider, [facility] - 03/15/2023 * * *Final Report* * * DATE OF EXAM: Mar 15 2023 1:09PM [facility] 0754 - MRI RECTUM WO/W IVCON [...] extra mesorectal lymph nodes: Yes EMVI: Yes. Crack Off Person: PSCB Transcribe Date/Time: Mar 15 2023 1:15P Dictated by : ZAYNAB NDIAYE MD This examination was interpreted and the report reviewed and electronically signed by: ZYANAB NDIAYE MD on Mar 15 2023 1:51PM EST [facility] Radiology Study observation (narrative) [facility] MR Pelvis WO contrastOrdered By: Ccf Provider on 03-15-2023 [facility] MRI RECTUM WO/W IVCONon 09-0 MRI RECTUM WO/W IVCON Normal [facility] Creatinine [Mass/volume] in Serum or PlasmaOrdered By: Tomi Greene on 03-06-2023 Creatinine [Mass/Vol] 0.52 mg/dL 0.60-1.20 [facility] No Panel InformationOrdered By: Imhank Greene on 03-06-2023 Estimated GFR (CKD-EPI) > 60.0 mL/Min [facility] Creatinine Clearance (Chem 59.72 [facility] Serum or plasma carcinoembry onic antigen measurement (mass/volume)Ordered By: Tomi Greene on 03-06-2023 Carcinoembryonic Ag [Mass/Vol] 2.7 ng/mL 0.0-3.0 [facility] Urea nitrogen [Mass/volume] in Serum or PlasmaOrdered By: Imhank Greene on 03-06-2023 Urea nitrogen [Mass/Vol] 17 mg/dL 7- [facility] PAP ACOG PANEL 2: 30 to 65on 11-10-2022 . . Normal [facility] Comment on above: Performed By: #### [id number] #### Laboratory [address] [place] [address] [address] Ghulam Padilla Age Gdln ACOG Testing Comment [facility] Comment on above: Result Comment: <21 or >65 or no age provided Performed By: #### [id number] #### Laboratory [address] [place] [address] [address] Ghulam Padilla DIAGNOSIS: Comment [facility] Comment on above: Result Comment: NEGA TIVE FOR INTRAEPITHELIAL LESION OR MALIGNANCY. PREDOMINANCE OF COCCOBACILLI CONSISTENT WITH SHIFT IN VAGINAL JONATHAN IS PRESENT. Performed By: #### [id number] #### Laboratory [address] [place] [address] [address] Ghulam Padilla Methodology: Comment [facility] Comment on above: Result Comment: This liquid based ThinPrep(R) pap test was screened with the use of an image guided system. Performed By: #### [id number] #### Laboratory [address] [place] [address] [address] Ghulam Padilla Note: Comment Normal [facility] Comment on above: Result Comment: The Pap smear is a screening test designed to aid in the detection of premalignant and malignant conditions of the uterine cervix. It is not a diagnostic procedure and should not be used as the sole means of detecting cervical cancer. Both false-positive and false-negative reports do occur. . Performed By: #### [id number] #### Laboratory [address] [address] [address] Ghulam Padilla Performed by: Comment Normal [facility] Comment on above: Result Comment: Mitra Martinez, Analytical Statistician (ASCP) Performed By: #### [id number] #### Laboratory [address] [place], [place] [id number] Dr. Ghulam Padilla Specimen adequacy: Comment Normal [facility] Comment on above: Result Comment: Sati sfactory for evaluation. Endocervical and/or squamous metaplastic cells (endocervical component) are present. Areas of partially obscuring inflammatory exudate are present. Performed By: #### [id number] #### Laboratory [address] [place], [place] [address] Dr. Ghulam Padilla XR DEXA BONE DENSITYon [...] by: ANI CAN Date: 2022-11-07 09:21 Normal [facility] Office Visit (Cardiology)on 10-26-2022 Follow-up visit Diagnoses/Problems Assessed Preoperative cardiovascular examination (V72.81) (Z01.810) Hypertension (401.9) (I10) Abnormal stress test (794.39) (R94.39) Overweight with body mass index (BMI) of 25 to 25.9 in adult (278.02,V85.21) (E66.3,Z68.25) Orders Overweight with body mass index (BMI) of 25 to 25.9 in adult Healthy Weight Tips; Status:Complete; Done: [id number] Some eating tips that can help you lose weight.; Status:Complete; Done: [id number] Preoperative cardiovascular examination IO EKG Electrocardiogram- 12 Lead; Status:Complete; Done: [id number] Patient Instructions Please bring all medicines, vitamins, [...] Cholecystectomy History of Complete colonoscopy Managed By: Beerman MD, Chiki H (Gastroenterology) History of Excision melanoma History of [...] negative for complaint. Vitals Vital Signs Recorded: [id number] 02:49PMRecorded: [id number] 02:48PM Srbvapjg796, LUE, Wtahmkj275, RUE, Sitting Ktyzvlqej03, LUE, Ghzuoer06, RUE, Sitting Heart Rate76, Apical Height5 ft 4.5 in Dnwpvd526 lb BMI Rbviadoteh84.86 kg/m2 BSA Calculated1.76 Tobacco Useb) No PHQ-2 #1. Over the last 2 weeks have you felt down, depressed or hopeless? (If yes, answer PHQ-9 below)No PHQ-2 #2. Over the last 2 weeks have you felt little interest or pleasure in doing things? (If yes, (more content not included)... Normal [facility] Tobacco Screening.on 023 Adult depression screening assessment No [facility] 250 DO Work Phone: Fall risk assessment a) No falls within the last year [facility] 250 DO Work Phone: Tobacco use status CP b) No [facility] 250 DO Work Phone: XR knee RT 4V*on 08-18-2022 XR knee RT 4V* [facility] [employer] Other XR knee RT 4V* [facility] [employer] Other XR knee RT 4V* [address] [place] [address] [employer] Other XR knee RT 4V* [place] [address] No rt [employer] Other XR knee RT 4V* XRay Report [employer] Other XR knee RT 4V* Signed [employer] Other XR knee RT 4V* Patient: Kathryn Gill MR#: [id number] [place] [employer] Other XR knee RT 4V* 89 [employer] Other XR knee RT 4V* : 1955 Acct:[id number] [employer] Other XR knee RT 4V* Age/Sex: 66 / F ADM Date: 08/18/22 [employer] Other XR knee RT 4V* Loc: [facility] Room: Type : [facility] [employer] Other XR knee RT 4V* Attending Dr: Caroline Rangel II, MD [employer] Other XR knee RT 4V* Copies to: Caroline Rangel MD [employer] Other XR knee RT 4V* Ordering Provider: Raphael Rangel MD [employer] Other XR knee RT 4V* Date of Service: 08/18/22 [employer] Other XR knee RT 4V* XR/XR knee RT 4V*: Bilateral primary osteoarthritis of knee [employer] Other XR knee RT 4V* XR knee RT 4V* 023 8:00 AM [employer] Other XR knee RT 4V* SIGNS AND SYMPTOMS: Right chronic lateral knee pain [employer] Other XR knee RT 4V* PROTOCOL: Frontal, lateral, and oblique radiographs of the right knee [employer] Other XR knee RT 4V* COMPARISON: 02/11/2022 [employer] Other XR knee RT 4V* FINDINGS: [employer] Other XR knee RT 4V* There is severe narr owing 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 This appear s to measure at least 11 mm in AP dimension. Degenerative changes are worse when [employer] Other XR knee RT 4V* compared to the prio r exam. No definite radiopaque foreign body. There is a moderate joint effusion. [employer] Other XR knee RT 4V* No soft tissue swell ing. There is mild patellofemoral joint space loss. [employer] Other XR knee RT 4V* X R/XR knee RT 4V* [employer] Other XR knee RT 4V* IMPRESSION: [employer] Other XR knee RT 4V* compared to the prio r exam. [employer] Other XR knee RT 4V* No definite radiopaq ue foreign body. [employer] Other XR knee RT 4V* Impression dictated by: Dheeraj Montesinos M.D.08/18/2022 10:52 AM [employer] Other XR knee RT 4V* Dictation Location: [place] [address] [employer] Other XR knee RT 4V* Transcribed By: NEWTON 08/18/22 1052 [employer] Other XR knee RT 4V* Dictated By: Dheeraj Montesinos II, MD 08/18/22 1049 [employer] Other XR knee RT 4V* Signed By: [employer] Other XR knee RT 4V* 08/18/22 1052 [employer] Other Albumin [Mass/volume] in Ser um or PlasmaOrdered By: Charles Bazzi on 05-25-2022 Albumin [Mass/Vol] 3.6 g/dL 3.2-5.5 [facility] Basophils Auto (Bld) [#/Vol] Ordered By: Charles Bazzi on 05-25-2022 Basophils (Bld) [#/Vol] 0.1 10*3/uL 0.0-0.2 [facility] Basophils/100 WBC Auto (Bld) Ordered By: Charles Bazzi on 05-25-2022 Basophils/100 WBC (Bld) 0.7 % . [facility] Cholesterol [Mass/volume] in Serum or PlasmaOrdered By: Charles Bazzi on 05-25-2022 Cholesterol [Mass/Vol] 181 mg/dL 140-200 [facility] Comment on above: Chol less than 200 m g/dl low riskChol 201-239 mg/dl borderline riskChol 240 mg/dl and greater high risk Cholesterol in LDL Calc [Mas s/Vol]Ordered By: Charles Bazzi on 05-25-2022 Cholesterol in LDL [Mass/Vol] 97 mg/dL 0-100 [facility] Comment on above: LDL ATP III CLASSIFI CATIONLDL less than 100 mg/dL OptimalLDL 100-129 mg/dL Near or above optimalLDL 130-159 mg/dL Borderline highLDL 160-189 mg/dL HighLDL greater than 189 mg/dL Very high Cholesterol in VLDL Calc [Ma ss/Vol]Ordered By: Charles Bazzi on 05-25-2022 Cholesterol in VLDL [Mass/Vol] 13 mg/dL [facility] Creatinine and Glomerular fi ltration rate.predicted panel (S/P/Bld)Ordered By: Charles Bazzi on 05-25-2022 Creatinine [Mass/Vol] 0.69 mg/dL 0.44-1.03 [facility] Eosinophils Auto (Bld) [#/Vo l]Ordered By: Charles Bazzi on 05-25-2022 Eosinophils (Bld) [#/Vol] 0.2 10*3/uL 0.0-0.45 [facility] Eosinophils/100 WBC Auto (Bl d)Ordered By: Charles Bazzi on 05-25-2022 Eosinophils/100 WBC (Bld) 2.3 % . [facility] Erythrocyte distribution wid th Auto (RBC) [Ratio]Ordered By: Charles Bazzi on 05-25-2022 Erythrocyte distribution width (RBC) [Ratio] 15.5 % 11.9-15.3 [facility] Estimated glomerular filtrat ion rate (GFR) non- AmericanOrdered By: Charles Bazzi on 05-25-2022 GFR/1.73 sq M.predicted among non-blacks MDRD (S/P/Bld) [Vol rate/Area] > 60 mL/Min [facility] Globulin Calc (S) [Mass/Vol] Ordered By: Charles Bazzi on 05-25-2022 Globulin (S) [Mass/Vol] 2.7 g/dL [facility] Hematocrit Auto (Bld) [Volum e fraction]Ordered By: Charles Bazzi on 05-25-2022 Hematocrit (Bld) [Volume fraction] 37.0 % 34.0-46.4 [facility] Hemoglobin [Mass/volume] in BloodOrdered By: Charles Bazzi on 05-25-2022 Hemoglobin (Bld) [Mass/Vol] 12.0 g/dL 11.8-15.4 [facility] Laboratory - Hematology and Cell countsOrdered By: Charles Bazzi on 05-25-2022 Nucleated RBC/100 WBC (Bld) [Ratio] 0.0 % 0-0.5 [facility] Leukocytes [#/volume] in Blo od by Automated countOrdered By: Charels Bazzi on 05-25-2022 WBC (Bld) [#/Vol] 8.2 10*3/uL 4.5-11.0 [facility] Lymphocytes Auto (Bld) [#/Vo l]Ordered By: Charles Bazzi on 05-25-2022 Lymphocytes (Bld) [#/Vol] 2.9 10*3/uL 1.00-4.8 [facility] Lymphocytes/100 WBC Auto (Bl d)Ordered By: Charles Bazzi on 05-25-2022 Lymphocytes/100 WBC (Bld) 35.1 % . [facility] MCH Auto (RBC) [Entitic mass ]Ordered By: Charles Bazzi on 05-25-2022 MCH (RBC) [Entitic mass] 29.1 pg 24.7-34.3 [facility] MCHC Auto (RBC) [Mass/Vol]Or dered By: Charles Bazzi on 05-25-2022 MCHC (RBC) [Mass/Vol] 32.4 g/dL 32.0-35.0 [facility] MCV Auto (RBC) [Entitic vol] Ordered By: Charles Bazzi on 05-25-2022 MCV (RBC) [Entitic vol] 89.9 fL 80-100 [facility] Monocytes Auto (Bld) [#/Vol] Ordered By: Charles Bazzi on 05-25-2022 Monocytes (Bld) [#/Vol] 0.6 10*3/uL 0.0-0.8 [facility] Monocytes/100 WBC Auto (Bld) Ordered By: Charles Bazzi on 05-25-2022 Monocytes/100 WBC (Bld) 7.7 % . [facility] Neutrophils Auto (Bld) [#/Vo l]Ordered By: Charles Bazzi on 05-25-2022 Neutrophils (Bld) [#/Vol] 4.4 10*3/uL 1.8-7.7 [facility] Neutrophils/100 WBC Auto (Bl d)Ordered By: Charles Bazzi on 05-25-2022 Neutrophils/100 WBC (Bld) 54.2 % . [facility] No Panel InformationOrdered By: Charles Bazzi on 05-25-2022 Estimated GFR () > 60 mL/Min [facility] Comment on above: GFR estimated refere nce range: According to KDOQI guidelines, <60 ml/min/1.73m2 is sufficient to diagnose a patient with chronic kidney disease. Pharmacy Creatinine Clearance (Chem N/A [facility] Platelet mean volume Auto (B ld) [Entitic vol]Ordered By: Charles Bazzi on 05-25-2022 Platelet mean volume (Bld) [Entitic vol] 7.2 fL 6.3-10.7 [facility] Platelets Auto (Bld) [#/Vol] Ordered By: Charles Bazzi on 05-25-2022 Platelets (Bld) [#/Vol] 441 10*3/uL 150-450 [facility] Protein [Mass/volume] in Ser um or PlasmaOrdered By: Charles Bazzi on 05-25-2022 Protein [Mass/Vol] 6.3 g/dL 6.1-7.9 [facility] RBC Auto (Bld) [#/Vol]Ordere d By: Charles Bazzi on 05-25-2022 RBC (Bld) [#/Vol] 4.12 10*6/uL 3.60-5.00 [facility] Serum or plasma alanine ruth otransferase measurement without P-5'-P (enzymatic activiOrdered By: Charles Bazzi on 05-25-2022 ALT No additional P-5'-P [Catalytic activity/Vol] 19 U/L 10-60 [facility] Serum or plasma albumin/glob ulin mass ratioOrdered By: Charles Bazzi on 05-25-2022 Albumin/Globulin [Mass ratio] 1.3 {ratio} [facility] Serum or plasma alkaline argelia sphatase measurement (enzymatic activity/volume)Ordered By: Charles Bazzi on 05-25-2022 ALP [Catalytic activity/Vol] 68 U/L 32-92 [facility] Serum or plasma anion gap de terminationOrdered By: Charles Bazzi on 05-25-2022 Anion gap [Moles/Vol] 7.6 mmol/L 6.0-15.0 [facility] Serum or plasma aspartate am inotransferase measurement (enzymatic activity/volume)Ordered By: Charles Bazzi on 05-25-2022 AST [Catalytic activity/Vol] 15 U/L 10-42 [facility] Serum or plasma calcium yogi urement (mass/volume)Ordered By: Charles Bazzi on 05-25-2022 Calcium [Mass/Vol] 9.0 mg/dL 8.2-10.2 [facility] Serum or plasma chloride radha surement (moles/volume)Ordered By: Charles Bazzi on 05-25-2022 Chloride [Moles/Vol] 106 mmol/L 95-114 [facility] Serum or plasma glucose yogi urement (mass/volume)Ordered By: Charles Bazzi on 05-25-2022 Glucose [Mass/Vol] 91 mg/dL 70-100 [facility] Comment on above: ADA recommended refe rence rangeRandom Glucose Reference Range is dependent on time and content of last meal. Glucose of more than 200 mg/dL in a nonstressed, ambulatory subject supports the diagnosis of Diabetes Mellitus. Serum or plasma high density lipoprotein (HDL) cholesterol measurementOrdered By: Charles Bazzi on 05-25-2022 Cholesterol in HDL [Mass/Vol] 70 mg/dL 35-85 [facility] Comment on above: HDL CHOL ATP-III CLA SSIFICATION Cardiovascular RiskHDL > or equal to 60 mg/dL LOWHDL < 40 mg/dL HIGH Serum or plasma potassium me asurement (moles/volume)Ordered By: Charles Bazzi on 05-25-2022 Potassium [Moles/Vol] 4.2 mmol/L 3.5-5.1 [facility] Serum or plasma sodium measu rement (moles/volume)Ordered By: Charles Bazzi on 05-25-2022 Sodium [Moles/Vol] 136 mmol/L 136-146 [facility] Serum or plasma total biliru bin measurement (mass/volume)Ordered By: Charles Bazzi on 05-25-2022 Bilirubin [Mass/Vol] 0.4 mg/dL 0.3-1.2 [facility] Serum or plasma total carbon dioxide measurement (moles/volume)Ordered By: Charles Bazzi on 05-25-2022 CO2 [Moles/Vol] 26.6 mmol/L 22.0-30.[address] [facility] Serum or plasma total choles terol/high density lipoprotein (HDL) cholesterol mass ratOrdered By: Chrales Bazzi on 05-25-2022 Cholesterol.total/Chol esterol in HDL [Mass ratio] 2.6 {ratio} <5.0 [facility] Serum or plasma urea nitroge n measurement (mass/volume)Ordered By: Charles Bazzi on 05-25-2022 Urea nitrogen [Mass/Vol] 20 mg/dL 9-23 [facility] TSH DL <= 0.005 mIU/L QnOrde red By: Charles Bazzi on 05-25-2022 TSH Qn 2.62 m[IU]/L 0.45-5.33 [facility] Triglyceride [Mass/volume] i n Serum or PlasmaOrdered By: Charles Bazzi on 05-25-2022 Triglyceride [Mass/Vol] 68 mg/dL 35-149 [facility] Comment on above: TRIG ATP III CLASSIF ICATIONTRIG less than 150 mg/dL NormalTRIG 150-199 mg/dL Borderline highTRIG 200-500 mg/dL High TRIG greater than 500 mg/dL Very highStandard traceable to the Center for Disease Conrtrol and Prevention (CDC) test method. Vital Signs Date Time Vital Sign Value Performing Clinician Facility 02-20-2025 14:04-0400 Body height 162.6 cm Tapan Corona MD Work Phone: [facility] 02-20-2025 14:04-0400 Body mass index (BMI) [Ratio] 25.09 kg/m2 Tapna Corona MD Work Phone: [facility] 02-20-2025 14:04-0400 Body temperature 99.39 [degF] Tapan Corona MD Work Phone: [facility] 02-20-2025 14:04-0400 Body weight 66.3 kg Tapan Corona MD Work Phone: [facility] 02-20-2025 14:04-0400 Diastolic blood pressure 78 mm[Hg] Tapan Corona MD Work Phone: [facility] 02-20-2025 14:04-0400 Heart rate 67 /min Tapan Corona MD Work Phone: [facility] 02-20-2025 14:04-0400 Respiratory rate 18 /min Tapan Corona MD Work Phone: [facility] 02-20-2025 14:04-0400 SaO2% (BldA) [Mass fraction] 99 % Tapan Corona MD Work Phone: [facility] 02-20-2025 14:04-0400 Systolic blood pressure 121 mm[Hg] Tapan Corona MD Work Phone: [facility] 02-20-2025 13:08-0400 Body height 162.6 cm Laisha Singer MD Work Phone: [facility] 02-20-2025 13:08-0400 Body mass index (BMI) [Ratio] 25.13 kg/m2 Laisha Singer MD Work Phone: [facility] 02-20-2025 13:08-0400 Body weight 66.4 kg Laisha Singer MD Work Phone: [facility] 02-20-2025 13:08-0400 Diastolic blood pressure 66 mm[Hg] Laisha Singer MD Work Phone: [facility] 02-20-2025 13:08-0400 Heart rate 67 /min Laisha Singer MD Work Phone: [facility] 02-20-2025 13:08-0400 SaO2% (BldA) [Mass fraction] 98 % Laisha Singer MD Work Phone: [facility] 02-20-2025 13:08-0400 Systolic blood pressure 124 mm[Hg] Laisha Singer MD Work Phone: [facility] 10-09-2024 09:07-0400 Body mass index (BMI) [Ratio] 27.8 kg/m2 JOSE MARIA Hudson MD Work Phone: [facility] 10-09-2024 09:07-0400 Body temperature 97.59 [degF] JOSE MARIA Hudson MD Work Phone: [facility] 10-09-2024 09:07-0400 Body weight 73.5 kg JOSE MARIA Hudson MD Work Phone: [facility] 10-09-2024 09:07-0400 Diastolic blood pressure 92 mm[Hg] JOSE MARIA Hudson MD Work Phone: [facility] 10-09-2024 09:07-0400 Heart rate 79 /min JOSE MARIA Hudson MD Work Phone: [facility] 10-09-2024 09:07-0400 Respiratory rate 16 /min JOSE MARIA Hudson MD Work Phone: [facility] 10-09-2024 09:07-0400 SaO2% (BldA) [Mass fraction] 98 % JOSE MARIA Hudson MD Work Phone: [facility] 10-09-2024 09:07-0400 Systolic blood pressure 164 mm[Hg] JOSE MARIA Hudson MD Work Phone: [facility] 09-18-2024 11:50-0400 Diastolic blood pressure 81 mm[Hg] Charles Kuns DO Work Phone: [facility] 09-18-2024 11:50-0400 Heart rate 59 /min Charles Kuns DO Work Phone: [facility] 09-18-2024 11:50-0400 Respiratory rate 18 /min Charles Kuns DO Work Phone: [facility] 09-18-2024 11:50-0400 SaO2% (BldA) [Mass fraction] 100 % Charles Kuns DO Work Phone: [facility] 09-18-2024 11:50-0400 Systolic blood pressure 139 mm[Hg] Charles Kuns DO Work Phone: [facility] 09-18-2024 10:24-0400 Body height 165.1 cm Charles Kuns DO Work Phone: [facility] 09-18-2024 10:24-0400 Body weight 69.39 kg Charles Kuns DO Work Phone: [facility] 09-09-2024 10:24-0500 Body height 165.1 cm Charles Kuns DO Work Phone: [facility] 09-09-2024 10:24-0500 Body mass index (BMI) [Ratio] 26.2 kg/m2 Charles Kuns DO Work Phone: [facility] 09-09-2024 10:24-0500 Body weight 71.66 kg Charles Kuns DO Work Phone: [facility] 09-09-2024 10:24-0500 Diastolic blood pressure 80 mm[Hg] Charles Kuns DO Work Phone: [facility] 09-09-2024 10:24-0500 Heart rate 68 /min Charles Kuns DO Work Phone: [facility] 09-09-2024 10:24-0500 Respiratory rate 18 /min Charles Kuns DO Work Phone: [facility] 09-09-2024 10:24-0500 SaO2% (BldA) [Mass fraction] 98 % Charles Kuns DO Work Phone: [facility] 09-09-2024 10:24-0500 Systolic blood pressure 128 mm[Hg] Charles Kuns DO Work Phone: [facility] 09-03-2024 13:52-0500 Body height 162.6 cm Tapan Corona MD Work Phone: [facility] 09-03-2024 13:52-0500 Body mass index (BMI) [Ratio] 27.42 kg/m2 Tapan Corona MD Work Phone: [facility] 09-03-2024 13:52-0500 Body temperature 97.2 [degF] Tapan Corona MD Work Phone: [facility] 09-03-2024 13:52-0500 Body weight 72.5 kg Tapan Corona MD Work Phone: [facility] 09-03-2024 13:52-0500 Diastolic blood pressure 74 mm[Hg] Tapan Corona MD Work Phone: [facility] 09-03-2024 13:52-0500 Heart rate 64 /min Tapan Corona MD Work Phone: [facility] 09-03-2024 13:52-0500 Respiratory rate 18 /min Tapan Corona MD Work Phone: [facility] 09-03-2024 13:52-0500 SaO2% (BldA) [Mass fraction] 98 % Tapan Corona MD Work Phone: [facility] 09-03-2024 13:52-0500 Systolic blood pressure 121 mm[Hg] Tapan Corona MD Work Phone: [facility] 08-26-2024 10:05-0500 Diastolic blood pressure 77 mm[Hg] Charles Kuns DO Work Phone: [facility] 08-26-2024 10:05-0500 Heart rate 55 /min Charles Kuns DO Work Phone: [facility] 08-26-2024 10:05-0500 Respiratory rate 16 /min Charles Kuns DO Work Phone: [facility] 08-26-2024 10:05-0500 SaO2% (BldA) [Mass fraction] 97 % Charles Kuns DO Work Phone: [facility] 08-26-2024 10:05-0500 Systolic blood pressure 147 mm[Hg] Charles Kuns DO Work Phone: [facility] 08-26-2024 09:35-0500 Body temperature 98.1 [degF] Charles Kuns DO Work Phone: [facility] 08-26-2024 07:08-0500 Body height 165.1 cm Charles Kuns DO Work Phone: [facility] 08-26-2024 07:08-0500 Body weight 71 kg Charles Kuns DO Work Phone: [facility] 06-11-2024 13:13-0500 Body height 162.56 cm Charles Kuns DO Work Phone: [facility] 06-11-2024 13:13-0500 Body mass index (BMI) [Ratio] 26.6 kg/m2 Charles Kuns DO Work Phone: [facility] 06-11-2024 13:13-0500 Body weight 70.3 kg Charles Kuns DO Work Phone: [facility] 06-11-2024 13:13-0500 Diastolic blood pressure 80 mm[Hg] Charles Kuns DO Work Phone: [facility] 06-11-2024 13:13-0500 Heart rate 67 /min Charles Kuns DO Work Phone: [facility] 06-11-2024 13:13-0500 Respiratory rate 16 /min Charles Kuns DO Work Phone: [facility] 06-11-2024 13:13-0500 SaO2% (BldA) [Mass fraction] 98 % Charles Kuns DO Work Phone: [facility] 06-11-2024 13:13-0500 Systolic blood pressure 120 mm[Hg] Charles Kuns DO Work Phone: [facility] 05-31-2024 14:50-0500 Diastolic blood pressure 72 mm[Hg] Charles Kuns DO Work Phone: [facility] 05-31-2024 14:50-0500 Heart rate 65 /min Charles Kuns DO Work Phone: [facility] 05-31-2024 14:50-0500 Respiratory rate 16 /min Charles Kuns DO Work Phone: [facility] 05-31-2024 14:50-0500 SaO2% (BldA) [Mass fraction] 99 % Charles Kuns DO Work Phone: [facility] 05-31-2024 14:50-0500 Systolic blood pressure 128 mm[Hg] Charles Kuns DO Work Phone: [facility] 05-31-2024 14:05-0500 Body temperature 97.3 [degF] Charles Kuns DO Work Phone: [facility] 05-31-2024 14:05-0500 Inhaled oxygen flow rate 8 L/min Charles Kuns DO Work Phone: [facility] 05-31-2024 11:31-0500 Body height 162.56 cm Charles Kuns DO Work Phone: [facility] 05-31-2024 11:31-0500 Body weight 67.13 kg Charles Kuns DO Work Phone: [facility] 05-23-2024 10:55-0500 Diastolic blood pressure 69 mm[Hg] Charles Kuns DO Work Phone: [facility] 05-23-2024 10:55-0500 Heart rate 64 /min Charles Kuns DO Work Phone: [facility] 05-23-2024 10:55-0500 Respiratory rate 16 /min Charles Kuns DO Work Phone: [facility] 05-23-2024 10:55-0500 SaO2% (BldA) [Mass fraction] 98 % Charles Kuns DO Work Phone: [facility] 05-23-2024 10:55-0500 Systolic blood pressure 140 mm[Hg] Charles Kuns DO Work Phone: [facility] 05-23-2024 08:25-0500 Body height 165.1 cm Charles Kuns DO Work Phone: [facility] 05-23-2024 08:25-0500 Body temperature 98.1 [degF] Charles Kuns DO Work Phone: [facility] 05-23-2024 08:25-0500 Body weight 69.6 kg Charles Kuns DO Work Phone: [facility] 05-22-2024 14:48-0500 Diastolic blood pressure 60 mm[Hg] Charles Kuns DO Work Phone: [facility] 05-22-2024 14:48-0500 Heart rate 80 /min Charles Kuns DO Work Phone: [facility] 05-22-2024 14:48-0500 Respiratory rate 18 /min Charles Kuns DO Work Phone: [facility] 05-22-2024 14:48-0500 SaO2% (BldA) [Mass fraction] 98 % Charles Kuns DO Work Phone: [facility] 05-22-2024 14:48-0500 Systolic blood pressure 122 mm[Hg] Charles Kuns DO Work Phone: [facility] 05-22-2024 11:56-0500 Body height 165.1 cm Charles Kuns DO Work Phone: [facility] 05-22-2024 11:56-0500 Body temperature 97.9 [degF] Charles Kuns DO Work Phone: [facility] 05-22-2024 11:56-0500 Body weight 68.95 kg Charles Kuns DO Work Phone: [facility] 05-08-2024 13:54-0400 Body height 162.6 cm Tapan Corona MD Work Phone: [facility] 05-08-2024 13:54-0400 Body mass index (BMI) [Ratio] 26.27 kg/m2 Tapan Corona MD Work Phone: [facility] 05-08-2024 13:54-0400 Body temperature 99 [degF] Tapan Corona MD Work Phone: [facility] 05-08-2024 13:54-0400 Body weight 69.45 kg Tapan Corona MD Work Phone: [facility] 05-08-2024 13:54-0400 Diastolic blood pressure 71 mm[Hg] Tapan Corona MD Work Phone: [facility] 05-08-2024 13:54-0400 Heart rate 70 /min Tapan Corona MD Work Phone: [facility] 05-08-2024 13:54-0400 Respiratory rate 18 /min Tapan Corona MD Work Phone: [facility] 05-08-2024 13:54-0400 SaO2% (BldA) [Mass fraction] 100 % Tapan Corona MD Work Phone: [facility] 05-08-2024 13:54-0400 Systolic blood pressure 132 mm[Hg] Tapan Corona MD Work Phone: [facility] 04-10-2024 09:56-0400 Body mass index (BMI) [Ratio] 26.02 kg/m2 JOSE MARIA Hudson MD Work Phone: [facility] 04-10-2024 09:56-0400 Body temperature 98.01 [degF] JOSE MARIA Hudson MD Work Phone: [facility] 04-10-2024 09:56-0400 Body weight 68.8 kg JOSE MARIA Hudson MD Work Phone: [facility] 04-10-2024 09:56-0400 Diastolic blood pressure 72 mm[Hg] JOSE MARIA Hudson MD Work Phone: [facility] 04-10-2024 09:56-0400 Heart rate 62 /min JOSE MARIA Hudson MD Work Phone: [facility] 04-10-2024 09:56-0400 Respiratory rate 16 /min JOSE MARIA Hudson MD Work Phone: [facility] 04-10-2024 09:56-0400 SaO2% (BldA) [Mass fraction] 99 % JOSE MARIA Hudson MD Work Phone: [facility] 04-10-2024 09:56-0400 Systolic blood pressure 140 mm[Hg] JOSE MARIA Hudson MD Work Phone: [facility] 02-06-2024 11:15-0400 Body height 162.6 cm Tapan Corona MD Work Phone: [facility] 02-06-2024 11:15-0400 Body mass index (BMI) [Ratio] 25.61 kg/m2 Tapan Corona MD Work Phone: [facility] 02-06-2024 11:15-0400 Body temperature 97.7 [degF] Tapan Corona MD Work Phone: [facility] 02-06-2024 11:15-0400 Body weight 67.7 kg Tapan Corona MD Work Phone: [facility] 02-06-2024 11:15-0400 Diastolic blood pressure 87 mm[Hg] Tapan Corona MD Work Phone: [facility] 02-06-2024 11:15-0400 Heart rate 76 /min Tapan Corona MD Work Phone: [facility] 02-06-2024 11:15-0400 Respiratory rate 16 /min Tapan Corona MD Work Phone: [facility] 02-06-2024 11:15-0400 SaO2% (BldA) [Mass fraction] 98 % Tapan Corona MD Work Phone: [facility] 02-06-2024 11:15-0400 Systolic blood pressure 150 mm[Hg] Tapan Corona MD Work Phone: [facility] 01-09-2024 14:09-0400 Body mass index (BMI) [Ratio] 24.2 kg/m2 Laisha Singer MD Work Phone: [facility] 01-09-2024 14:09-0400 Body temperature 97.81 [degF] Laisha Singer MD Work Phone: [facility] 01-09-2024 14:09-0400 Body weight 63.96 kg Laisha Singer MD Work Phone: [facility] 01-09-2024 14:09-0400 Diastolic blood pressure 79 mm[Hg] Laisha Singer MD Work Phone: [facility] 01-09-2024 14:09-0400 Heart rate 64 /min Laisha Singer MD Work Phone: [facility] 01-09-2024 14:09-0400 SaO2% (BldA) [Mass fraction] 99 % Laisha Singer MD Work Phone: [facility] 01-09-2024 14:09-0400 Systolic blood pressure 131 mm[Hg] Laisha Singer MD Work Phone: [facility] 11-24-2023 15:29-0400 Body height 162.6 cm Brandie Salmeron EDITOR [employer]UC[employer] Work Phone: [facility] 11-24-2023 15:29-0400 Body mass index (BMI) [Ratio] 24.2 kg/m2 Brandie Salmeron EDITOR PRODUCER.[employer]ACH Work Phone: [facility] 11-24-2023 15:29-0400 Body temperature 97.3 [degF] Brandie Salmeron EDITOR PRODUCER.[employer]ACH Work Phone: [facility] 11-24-2023 15:29-0400 Body weight 63.96 kg Brandie Salmeron EDITOR PRODUCER.[employer]ACH Work Phone: [facility] 11-24-2023 15:29-0400 Diastolic blood pressure 56 mm[Hg] Brandie Salmeron EDITOR PRODUCER.[employer]ICK[employer] COACH Work Phone: [facility] 11-24-2023 15:29-0400 Heart rate 57 /min Brandie Salmeron EDITOR PRODUCER.[employer]ICK[employer]ACH Work Phone: [facility] 11-24-2023 15:29-0400 Systolic blood pressure 122 mm[Hg] Brandie Salmeron EDITOR PRODUCER.[employer] COACH Work Phone: [facility] 10-28-2023 13:26-0400 Body temperature 97.5 [degF] DO Charles Kuns Work Phone: [facility] 10-28-2023 13:26-0400 Diastolic blood pressure 69 mm[Hg] DO Charles Kuns Work Phone: [facility] 10-28-2023 13:26-0400 Heart rate 77 /min DO Charles Kuns Work Phone: [facility] 10-28-2023 13:26-0400 Respiratory rate 16 /min DO Charles Kuns Work Phone: [facility] 10-28-2023 13:26-0400 SaO2% (BldA) [Mass fraction] 100 % DO Charles Kuns Work Phone: [facility] 10-28-2023 13:26-0400 Systolic blood pressure 122 mm[Hg] DO Charles Kuns Work Phone: [facility] 10-28-2023 05:55-0400 Body weight 67.6 kg DO Charles Kuns Work Phone: [facility] 10-26-2023 15:42-0400 Body height 162.56 cm DO Charles Kuns Work Phone: [facility] 10-26-2023 03:21-0400 Diastolic blood pressure 64 mm[Hg] DO Charles Kuns Work Phone: [facility] 10-26-2023 03:21-0400 Heart rate 75 /min DO Charles Kuns Work Phone: [facility] 10-26-2023 03:21-0400 Respiratory rate 15 /min DO Charles Kuns Work Phone: [facility] 10-26-2023 03:21-0400 SaO2% (BldA) [Mass fraction] 96 % DO Charles Kuns Work Phone: [facility] 10-26-2023 03:21-0400 Systolic blood pressure 119 mm[Hg] DO Charles Kuns Work Phone: [facility] 10-26-2023 01:53-0400 Body temperature 98 [degF] DO Charles Kuns Work Phone: [facility] 10-25-2023 20:18-0400 Body height 162.56 cm DO Charles Kuns Work Phone: [facility] 10-25-2023 20:18-0400 Body weight 66.9 kg DO Charles Kuns Work Phone: [facility] 10-10-2023 10:42-0400 Body height 162.6 cm Tapan Corona MD Work Phone: [facility] 10-10-2023 10:42-0400 Body temperature 98.01 [degF] Tapan Corona MD Work Phone: [facility] 10-10-2023 10:42-0400 Body weight 63.7 kg Tapan Corona MD Work Phone: [facility] 10-10-2023 10:42-0400 Diastolic blood pressure 66 mm[Hg] Tapan Corona MD Work Phone: [facility] 10-10-2023 10:42-0400 Heart rate 92 /min Tapan Corona MD Work Phone: [facility] 10-10-2023 10:42-0400 Respiratory rate 16 /min Tapan Corona MD Work Phone: [facility] 10-10-2023 10:42-0400 SaO2% (BldA) [Mass fraction] 100 % Tapan Corona MD Work Phone: [facility] 10-10-2023 10:42-0400 Systolic blood pressure 122 mm[Hg] Tapan Corona MD Work Phone: [facility] 10-01-2023 12:00-0400 Body temperature 98.1 [degF] DO Charles Kuns Work Phone: [facility] 10-01-2023 12:00-0400 Diastolic blood pressure 68 mm[Hg] DO Charles Kuns Work Phone: [facility] 10-01-2023 12:00-0400 Heart rate 63 /min DO Charles Kuns Work Phone: [facility] 10-01-2023 12:00-0400 Respiratory rate 16 /min DO Charles Kuns Work Phone: [facility] 10-01-2023 12:00-0400 SaO2% (BldA) [Mass fraction] 98 % DO Charles Kuns Work Phone: [facility] 10-01-2023 12:00-0400 Systolic blood pressure 117 mm[Hg] DO Charles Kuns Work Phone: [facility] 10-01-2023 06:00-0400 Body weight 66 kg DO Charles Kuns Work Phone: [facility] 09-30-2023 04:29-0400 Body height 162.56 cm DO Charles Kuns Work Phone: [facility] 09-30-2023 04:08-0400 Body temperature 98.1 [degF] DO Charles Kuns Work Phone: [facility] 09-30-2023 04:08-0400 Diastolic blood pressure 59 mm[Hg] DO Charles Kuns Work Phone: [facility] 09-30-2023 04:08-0400 Heart rate 68 /min DO Charles Kuns Work Phone: [facility] 09-30-2023 04:08-0400 Respiratory rate 16 /min DO Charles Kuns Work Phone: [facility] 09-30-2023 04:08-0400 SaO2% (BldA) [Mass fraction] 96 % DO Charles Kuns Work Phone: [facility] 09-30-2023 04:08-0400 Systolic blood pressure 123 mm[Hg] DO Charles Kuns Work Phone: [facility] 09-30-2023 00:58-0400 Body height 162.56 cm DO Charles Kuns Work Phone: [facility] 09-30-2023 00:58-0400 Body weight 62.59 kg DO Charles Kuns Work Phone: [facility] 09-22-2023 14:30-0400 Body height 162.6 cm Brandie Salmeron APRN.CNP Work Phone: [facility] 09-22-2023 14:30-0400 Body temperature 97.3 [degF] Brandie Salmeron EDITOR PRODUCER.[employer]ICKET [employer]ACH Work Phone: [facility] 09-22-2023 14:30-0400 Body weight 62.6 kg Brandie Salmeron EDITOR PRODUCER.CRICKET COACH Work Phone: [facility] 09-22-2023 14:30-0400 Diastolic blood pressure 68 mm[Hg] Brandie Salmeron EDITOR PRODUCER.CRICKET COACH Work Phone: [facility] 09-22-2023 14:30-0400 Heart rate 62 /min Brandie Salmeron EDITOR PRODUCER.CRICKET COACH Work Phone: [facility] 09-22-2023 14:30-0400 SaO2% (BldA) [Mass fraction] 100 % Brandie Salmeron EDITOR PRODUCER.CRICKET COACH Work Phone: [facility] 09-22-2023 14:30-0400 Systolic blood pressure 125 mm[Hg] Brandie Salmeron EDITOR PRODUCER.CRICKET COACH Work Phone: [facility] 08-11-2023 12:03-0500 Body height 165.1 cm Pacc 2 Work Phone: [facility] 08-11-2023 12:03-0500 Body temperature 97 [degF] Pacc 2 Work Phone: [facility] 08-11-2023 12:03-0500 Body weight 63.5 kg Pacc 2 Work Phone: [facility] 08-11-2023 12:03-0500 Diastolic blood pressure 75 mm[Hg] Pacc 2 Work Phone: [facility] 08-11-2023 12:03-0500 Heart rate 71 /min Pacc 2 Work Phone: [facility] 08-11-2023 12:03-0500 Respiratory rate 18 /min Pacc 2 Work Phone: [facility] 08-11-2023 12:03-0500 SaO2% (BldA) [Mass fraction] 99 % Pacc 2 Work Phone: [facility] 08-11-2023 12:03-0500 Systolic blood pressure 105 mm[Hg] Pacc 2 Work Phone: [facility] 07-25-2023 12:42-0500 Body height 165.1 cm Marcos Rios MD Work Phone: [facility] 07-25-2023 12:42-0500 Body mass index (BMI) [Ratio] 24.3 kg/m2 Marcos Rios MD Work Phone: [facility] 07-25-2023 12:42-0500 Body weight 66.22 kg Marcos Rios MD Work Phone: [facility] 07-25-2023 12:42-0500 Diastolic blood pressure 88 mm[Hg] Marcos Rios MD Work Phone: [facility] 07-25-2023 12:42-0500 Heart rate 66 /min Marcos Rios MD Work Phone: [facility] 07-25-2023 12:42-0500 Systolic blood pressure 138 mm[Hg] Marcos Rios MD Work Phone: [facility] 06-26-2023 15:25-0500 Diastolic blood pressure 58 mm[Hg] DO Charles Kuns Work Phone: [facility] 06-26-2023 15:25-0500 Heart rate 58 /min DO Charles Kuns Work Phone: [facility] 06-26-2023 15:25-0500 Respiratory rate 16 /min DO Charles Kuns Work Phone: [facility] 06-26-2023 15:25-0500 SaO2% (BldA) [Mass fraction] 97 % DO Charles Kuns Work Phone: [facility] 06-26-2023 15:25-0500 Systolic blood pressure 114 mm[Hg] DO Charles Kuns Work Phone: [facility] 06-26-2023 13:18-0500 Body height 162.56 cm DO Charles Kuns Work Phone: [facility] 06-26-2023 13:18-0500 Body mass index (BMI) [Ratio] 23.6 kg/m2 DO Charles Kuns Work Phone: [facility] 06-26-2023 13:18-0500 Body weight 62.59 kg DO Charles Kuns Work Phone: [facility] 06-26-2023 10:43-0500 Body temperature 98 [degF] DO Charles Kuns Work Phone: [facility] 06-14-2023 14:51-0500 Body height 162.6 cm Tapan Corona MD Work Phone: [facility] 06-14-2023 14:51-0500 Body temperature 98.01 [degF] Tapan Corona MD Work Phone: [facility] 06-14-2023 14:51-0500 Body weight 63.41 kg Tapan Corona MD Work Phone: [facility] 06-14-2023 14:51-0500 Diastolic blood pressure 56 mm[Hg] Tapan Corona MD Work Phone: [facility] 06-14-2023 14:51-0500 Heart rate 77 /min Tapan Corona MD Work Phone: [facility] 06-14-2023 14:51-0500 Respiratory rate 16 /min Tapan Corona MD Work Phone: [facility] 06-14-2023 14:51-0500 SaO2% (BldA) [Mass fraction] 94 % Tapan Corona MD Work Phone: [facility] 06-14-2023 14:51-0500 Systolic blood pressure 111 mm[Hg] Tapan Corona MD Work Phone: [facility] 06-08-2023 13:30-0500 Diastolic blood pressure 63 mm[Hg] Laisha Singer MD Work Phone: [facility] 06-08-2023 13:30-0500 Heart rate 73 /min Laisha Singer MD Work Phone: [facility] 06-08-2023 13:30-0500 Respiratory rate 17 /min Laisha Singer MD Work Phone: [facility] 06-08-2023 13:30-0500 SaO2% (BldA) [Mass fraction] 100 % Laisha Singer MD Work Phone: [facility] 06-08-2023 13:30-0500 Systolic blood pressure 111 mm[Hg] Laisha Singer MD Work Phone: [facility] 06-08-2023 13:11-0500 Body temperature 97.2 [degF] Laisha Singer MD Work Phone: [facility] 06-08-2023 12:40-0500 Body weight 62.6 kg Laisha Singer MD Work Phone: [facility] 05-29-2023 10:20-0500 Body temperature 96.69 [degF] JOSE MARIA Hudson MD Work Phone: [facility] 05-29-2023 10:20-0500 Body weight 62.6 kg JOSE MARIA Hudson MD Work Phone: [facility] 05-29-2023 10:20-0500 Diastolic blood pressure 78 mm[Hg] JOSE MARIA Hudson MD Work Phone: [facility] 05-29-2023 10:20-0500 Heart rate 64 /min JOSE MARIA Hudson MD Work Phone: [facility] 05-29-2023 10:20-0500 Respiratory rate 18 /min JOSE MARIA Hudson MD Work Phone: [facility] 05-29-2023 10:20-0500 SaO2% (BldA) [Mass fraction] 98 % JOSE MARIA Hudson MD Work Phone: [facility] 05-29-2023 10:20-0500 Systolic blood pressure 134 mm[Hg] JOSE MARIA Hudson MD Work Phone: [facility] 05-08-2023 10:59-0400 Body temperature 96.91 [degF] JOSE MARIA Hudson MD Work Phone: [facility] 05-08-2023 10:59-0400 Body weight 61.69 kg JOSE MARIA Hudson MD Work Phone: [facility] 05-08-2023 10:59-0400 Diastolic blood pressure 72 mm[Hg] JOSE MARIA Hudson MD Work Phone: [facility] 05-08-2023 10:59-0400 Heart rate 74 /min JOSE MARIA Hudson MD Work Phone: [facility] 05-08-2023 10:59-0400 Respiratory rate 16 /min JOSE MARIA Hudson MD Work Phone: [facility] 05-08-2023 10:59-0400 SaO2% (BldA) [Mass fraction] 95 % JOSE MARIA Hudson MD Work Phone: [facility] 05-08-2023 10:59-0400 Systolic blood pressure 116 mm[Hg] JOSE MARIA Hudson MD Work Phone: [facility] 05-01-2023 11:05-0400 Body temperature 96.69 [degF] JOSE MARIA Hudson MD Work Phone: [facility] 05-01-2023 11:05-0400 Body weight 62.05 kg JOSE MARIA Hudson MD Work Phone: [facility] 05-01-2023 11:05-0400 Diastolic blood pressure 63 mm[Hg] JOSE MARIA Hudson MD Work Phone: [facility] 05-01-2023 11:05-0400 Heart rate 61 /min JOSE MARIA Hudson MD Work Phone: [facility] 05-01-2023 11:05-0400 Respiratory rate 18 /min JOSE MARIA Hudson MD Work Phone: [facility] 05-01-2023 11:05-0400 SaO2% (BldA) [Mass fraction] 95 % JOSE MARIA Hudson MD Work Phone: [facility] 05-01-2023 11:05-0400 Systolic blood pressure 107 mm[Hg] JOSE MARIA Hudson MD Work Phone: [facility] 05-01-2023 08:45-0400 Body height 165.1 cm Charles Bazzi Other [employer] Other 05-01-2023 08:45-0400 Body mass index (BMI) [Ratio] 22.63 kg/m2 Charles [employer]Areas Other [employer] Other 05-01-2023 08:45-0400 Body weight 61.69 kg Charles [employer] Other [employer] Other 05-01-2023 08:45-0400 Diastolic blood pressure 64 mm[Hg] Charles [employer] Other [employer] Other 05-01-2023 08:45-0400 Respiratory rate 16 /min Charles [employer] Other [employer] Other 05-01-2023 08:45-0400 SaO2% (BldA) [Mass fraction] 99 % Charles [employer] Other [employer] Other 05-01-2023 08:45-0400 Systolic blood pressure 110 mm[Hg] Charles [employer] Other [employer] Other 04-28-2023 14:08-0400 Body height 162.6 cm Tapan Corona MD Work Phone: [facility] 04-28-2023 14:08-0400 Body temperature 97.7 [degF] Tapan Corona MD Work Phone: [facility] 04-28-2023 14:08-0400 Body weight 62.32 kg Tapan Corona MD Work Phone: [facility] 04-28-2023 14:08-0400 Diastolic blood pressure 49 mm[Hg] Tapan Corona MD Work Phone: [facility] 04-28-2023 14:08-0400 Heart rate 65 /min Tapan Corona MD Work Phone: [facility] 04-28-2023 14:08-0400 Respiratory rate 18 /min Tapan Corona MD Work Phone: [facility] 04-28-2023 14:08-0400 SaO2% (BldA) [Mass fraction] 99 % Tapan Corona MD Work Phone: [facility] 04-28-2023 14:08-0400 Systolic blood pressure 106 mm[Hg] Tapan Corona MD Work Phone: [facility] 04-24-2023 11:33-0400 Body temperature 96.69 [degF] JOSE MARIA Hudson MD Work Phone: [facility] 04-24-2023 11:33-0400 Body weight 62.08 kg JOSE MARIA Hudson MD Work Phone: [facility] 04-24-2023 11:33-0400 Diastolic blood pressure 58 mm[Hg] JOSE MARIA Hudson MD Work Phone: [facility] 04-24-2023 11:33-0400 Heart rate 72 /min JOSE MARIA Hudson MD Work Phone: [facility] 04-24-2023 11:33-0400 Respiratory rate 18 /min JOSE MARIA Hudson MD Work Phone: [facility] 04-24-2023 11:33-0400 SaO2% (BldA) [Mass fraction] 99 % JOSE MARIA Hudson MD Work Phone: [facility] 04-24-2023 11:33-0400 Systolic blood pressure 122 mm[Hg] JOSE MARIA Hudson MD Work Phone: [facility] 04-14-2023 10:05-0400 Body height 160.7 cm Tapan Corona MD Work Phone: [facility] 04-14-2023 10:05-0400 Body temperature 97.5 [degF] Tapan Corona MD Work Phone: [facility] 04-14-2023 10:05-0400 Body weight 62.69 kg Tapan Corona MD Work Phone: [facility] 04-14-2023 10:05-0400 Diastolic blood pressure 48 mm[Hg] Tapan Corona MD Work Phone: [facility] 04-14-2023 10:05-0400 Heart rate 71 /min Tapan Corona MD Work Phone: [facility] 04-14-2023 10:05-0400 Respiratory rate 16 /min Tapan Corona MD Work Phone: [facility] 04-14-2023 10:05-0400 SaO2% (BldA) [Mass fraction] 99 % Tapan Corona MD Work Phone: [facility] 04-14-2023 10:05-0400 Systolic blood pressure 107 mm[Hg] Tapan Corona MD Work Phone: [facility] 04-10-2023 11:10-0400 Body temperature 97.81 [degF] JOSE MARIA Hudson MD Work Phone: [facility] 04-10-2023 11:10-0400 Body weight 63.05 kg JOSE MARIA Hudson MD Work Phone: [facility] 04-10-2023 11:10-0400 Diastolic blood pressure 66 mm[Hg] JOSE MARIA Hudson MD Work Phone: [facility] 04-10-2023 11:10-0400 Heart rate 71 /min JOSE MARIA Hudson MD Work Phone: [facility] 04-10-2023 11:10-0400 Respiratory rate 18 /min JOSE MARIA Hudson MD Work Phone: [facility] 04-10-2023 11:10-0400 SaO2% (BldA) [Mass fraction] 99 % JOSE MARIA Hudson MD Work Phone: [facility] 04-10-2023 11:10-0400 Systolic blood pressure 104 mm[Hg] JOSE MARIA Hudson MD Work Phone: [facility] 04-06-2023 12:44-0400 Body temperature 97.9 [degF] DO Charles Kuns Work Phone: [facility] 04-06-2023 12:44-0400 Diastolic blood pressure 63 mm[Hg] DO Charles Kuns Work Phone: [facility] 04-06-2023 12:44-0400 Heart rate 77 /min DO Charles Kuns Work Phone: [facility] 04-06-2023 12:44-0400 Respiratory rate 14 /min DO Charles Kuns Work Phone: [facility] 04-06-2023 12:44-0400 SaO2% (BldA) [Mass fraction] 99 % DO Charles Kuns Work Phone: [facility] 04-06-2023 12:44-0400 Systolic blood pressure 98 mm[Hg] DO Charles Kuns Work Phone: [facility] 04-06-2023 06:13-0400 Body weight 60 kg DO Charles Kuns Work Phone: [facility] 04-05-2023 18:29-0400 Body height 160.02 cm DO Charles Kuns Work Phone: [facility] 04-05-2023 17:00-0400 Diastolic blood pressure 54 mm[Hg] DO Charles Kuns Work Phone: [facility] 04-05-2023 17:00-0400 Heart rate 70 /min DO Charles Kuns Work Phone: [facility] 04-05-2023 17:00-0400 Respiratory rate 16 /min DO Charles Kuns Work Phone: [facility] 04-05-2023 17:00-0400 SaO2% (BldA) [Mass fraction] 99 % DO Charles Kuns Work Phone: [facility] 04-05-2023 17:00-0400 Systolic blood pressure 107 mm[Hg] DO Charles Kuns Work Phone: [facility] 04-05-2023 13:02-0400 Body height 160.02 cm DO Charles Kuns Work Phone: [facility] 04-05-2023 13:02-0400 Body temperature 98.2 [degF] DO Charles Kuns Work Phone: [facility] 04-05-2023 13:02-0400 Body weight 61.23 kg DO Charles Kuns Work Phone: [facility] 04-03-2023 12:00-0400 Body temperature 96.69 [degF] JOSE MARIA Hudson MD Work Phone: [facility] 04-03-2023 12:00-0400 Body weight 62.6 kg JOSE MARIA Hudson MD Work Phone: [facility] 04-03-2023 12:00-0400 Diastolic blood pressure 67 mm[Hg] JOSE MARIA Hudson MD Work Phone: [facility] 04-03-2023 12:00-0400 Heart rate 63 /min JOSE MARIA Hudson MD Work Phone: [facility] 04-03-2023 12:00-0400 Respiratory rate 18 /min JOSE MARIA Hudson MD Work Phone: [facility] 04-03-2023 12:00-0400 SaO2% (BldA) [Mass fraction] 97 % JOSE MARIA Hudson MD Work Phone: [facility] 04-03-2023 12:00-0400 Systolic blood pressure 130 mm[Hg] JOSE MARIA Hudson MD Work Phone: [facility] 03-22-2023 14:30-0400 Body height 160.7 cm Tapan Corona MD Work Phone: [facility] 03-22-2023 14:30-0400 Body temperature 97.81 [degF] Tapan Corona MD Work Phone: [facility] 03-22-2023 14:30-0400 Body weight 61.78 kg Tapan Corona MD Work Phone: [facility] 03-22-2023 14:30-0400 Diastolic blood pressure 67 mm[Hg] Tapan Corona MD Work Phone: [facility] 03-22-2023 14:30-0400 Heart rate 65 /min Tapan Corona MD Work Phone: [facility] 03-22-2023 14:30-0400 Respiratory rate 16 /min Tapan Corona MD Work Phone: [facility] 03-22-2023 14:30-0400 SaO2% (BldA) [Mass fraction] 99 % Tapan Corona MD Work Phone: [facility] 03-22-2023 14:30-0400 Systolic blood pressure 126 mm[Hg] Tapan Corona MD Work Phone: [facility] 03-16-2023 13:30-0400 Diastolic blood pressure 81 mm[Hg] Laisha Singer MD Work Phone: [facility] 03-16-2023 13:30-0400 Heart rate 66 /min Laisha Singer MD Work Phone: [facility] 03-16-2023 13:30-0400 Respiratory rate 18 /min Laisha Singer MD Work Phone: [facility] 03-16-2023 13:30-0400 SaO2% (BldA) [Mass fraction] 100 % Laisha Singer MD Work Phone: [facility] 03-16-2023 13:30-0400 Systolic blood pressure 96 mm[Hg] Laisha Singer MD Work Phone: [facility] 03-16-2023 13:07-0400 Body temperature 97.39 [degF] Laisha Singer MD Work Phone: [facility] 03-06-2023 11:55-0400 Diastolic blood pressure 64 mm[Hg] DO Charles Kuns Work Phone: [facility] 03-06-2023 11:55-0400 Heart rate 79 /min DO Charles Kuns Work Phone: [facility] 03-06-2023 11:55-0400 Respiratory rate 18 /min DO Charles Kuns Work Phone: [facility] 03-06-2023 11:55-0400 SaO2% (BldA) [Mass fraction] 100 % DO Charles Kuns Work Phone: [facility] 03-06-2023 11:55-0400 Systolic blood pressure 125 mm[Hg] DO Charles Kuns Work Phone: [facility] 03-06-2023 09:03-0400 Body height 165.1 cm DO Charles Kuns Work Phone: [facility] 03-06-2023 09:03-0400 Body temperature 97.6 [degF] DO Charles Kuns Work Phone: [facility] 03-06-2023 09:03-0400 Body weight 61.23 kg DO Charles Kuns Work Phone: [facility] 10-31-2022 10:00-0400 Body height 165.1 cm Charlespeyton Dhillons Other [facility] [employer] Other 10-31-2022 10:00-0400 Body mass index (BMI) [Ratio] 25.29 kg/m2 Charles Alejos Other [facility] [employer] Other 10-31-2022 10:00-0400 Body weight 68.95 kg Charles Alejos Other [place] [employer] Other 10-31-2022 10:00-0400 Diastolic blood pressure 70 mm[Hg] Charles Kuns Other [facility] [employer] Other 10-31-2022 10:00-0400 Respiratory rate 16 /min Charlespeyton Dhillons Other [place] [employer] Other 10-31-2022 10:00-0400 SaO2% (BldA) [Mass fraction] 96 % Charles Alejos Other [place] [employer] Other 10-31-2022 10:00-0400 Systolic blood pressure 122 mm[Hg] Charles Kuns Other [place] [employer] Other 10-26-2022 14:49-0400 Diastolic blood pressure 70 mm[Hg] Charles R Kuns Work Phone: [facility] DO Work Phone: 10-26-2022 14:49-0400 Systolic blood pressure 102 mm[Hg] Charles R Kuns Work Phone: [facility] [facility] DO Work Phone: 10-26-2022 14:48-0400 Body height 163.83 cm Charles R Kuns Work Phone: [facility] [facility] DO Work Phone: 10-26-2022 14:48-0400 Body mass index (BMI) [Ratio] 25.86 kg/m2 Charles R Kuns Work Phone: [facility] [facility] DO Work Phone: 10-26-2022 14:48-0400 Body surface area Derived from formula 1.76 m2 Charles R Alejos Work Phone: [facility] [facility] DO Work Phone: 10-26-2022 14:48-0400 Body weight 69.4 kg Charles R Kuns Work Phone: [facility] [facility] DO Work Phone: 10-26-2022 14:48-0400 Diastolic blood pressure 80 mm[Hg] Charles R Kuns Work Phone: [facility] [facility] DO Work Phone: 10-26-2022 14:48-0400 Heart rate 76 /min Charles R Kuns Work Phone: [facility] [facility] DO Work Phone: 10-26-2022 14:48-0400 Systolic blood pressure 110 mm[Hg] Charles R Kuns Work Phone: [facility] [facility] DO Work Phone: 10-03-2022 10:00-0400 Body height 165.1 cm Charles Bazzi Other [facility] [employer] Other 10-03-2022 10:00-0400 Body mass index (BMI) [Ratio] 26.46 kg/m2 Charles Kuns Other [facility] Other 10-03-2022 10:00-0400 Body weight 72.12 kg Charles Kuns Other [facility] Other 10-03-2022 10:00-0400 Diastolic blood pressure 66 mm[Hg] Charles Kuns Other [facility] Other 10-03-2022 10:00-0400 Respiratory rate 16 /min Charles Kuns Other [facility] Other 10-03-2022 10:00-0400 SaO2% (BldA) [Mass fraction] 97 % Charles Kuns Other [facility] Other 10-03-2022 10:00-0400 Systolic blood pressure 122 mm[Hg] Charles Kuns Other [facility] Other 05-18-2022 12:45-0500 Body height 165.1 cm Caroline Juan Carlos II Other [facility] Other 05-18-2022 12:45-0500 Body mass index (BMI) [Ratio] 28.45 kg/m2 Caroline Juan Carlos II Other [facility] Other 05-18-2022 12:45-0500 Body weight 77.57 kg Caroline Juan Carlos II Other [facility] Other 05-11-2022 11:30-0400 Body height 165.1 cm Caroline Juan Carlos II Other [facility] Other 05-11-2022 11:30-0400 Body mass index (BMI) [Ratio] 28.45 kg/m2 Caroline Rangel II Other [facility] Other 05-11-2022 11:30-0400 Body weight 77.57 kg Caroline Rangel II Other [facility] Other Encounters Encounter Date Encounter Type Care Provider Facility Start: 02-20-2025 End: 02-20-2025 Admission to same day surgery center Cierra Lindquist RN Colorectal Surgery Comment on above: history of colon can cer Start: 02-20-2025 End: 02-20-2025 Patient encounter procedure Tapan Corona MD Work Phone: Hematology Comment on above: History of rectal ca ncer (Primary Dx) Encounter for follow -up surveillance of rectal cancer (Primary Dx); Low anterior resection syndrome Start: 02-20-2025 End: 02-20-2025 ambulatory Cierra Lindquist RN Colorectal Surgery Start: 02-19-2025 End: 02-19-2025 ambulatory Chapincito Anthony PT Work Phone: Physical Therapy Comment on above: Muscle spasm (Primar y Dx) Start: 02-10-2025 End: 02-10-2025 [facility] Start: 02-10-2025 ambulatory [facility] Facility :[facility] Start: 02-10-2025 End: 02-10-2025 Subsequent hospital visit by physician Arrival Time Radiology Work Phone: Radiology Pet CT Comment on above: History of rectal ca ncer [Z85.048] Start: 01-28-2025 End: 01-28-2025 ambulatory Chapincito Anthony PT Work Phone: Physical Therapy Comment on above: Muscle spasm (Primar y Dx); Low anterior resection syndrome Start: 01-03-2025 End: 01-03-2025 Admission to same day surgery center Laisha Singer MD Work Phone: Colorectal Surgery Comment on above: survey on LARS for Faustino Singer Start: 01-03-2025 End: 01-03-2025 E-mail encounter from caregiver Laisha Singer MD Work Phone: Colorectal Surgery Start: 01-03-2025 End: 01-03-2025 Telephone encounter Laisha Singer MD Work Phone: Colorectal Surgery Comment on above: Returning Patient's Call Start: 01-02-2025 End: 01-03-2025 Admission to same day surgery center Laisha Singer MD Work Phone: Colorectal Surgery Comment on above: Diarrhea Start: 01-02-2025 End: 01-03-2025 ambulatory Laisha Singer MD Work Phone: Colorectal Surgery Start: 11-11-2024 End: 11-11-2024 ambulatory Priscilla Robledo MD Facility: [facility] Start: 11-05-2024 End: 11-05-2024 ambulatory LAISHA SINGER Facility:[facility] Start: 11-05-2024 End: 11-05-2024 Admission to same day surgery center Ale Marie APRN.CRICKET COACH Work Phone: Colorectal Surgery Comment on above: Manometry Start: 11-05-2024 End: 11-05-2024 Patient encounter procedure Ale Marie APRN.CRICKET COACH Work Phone: Colorectal Surgery Start: 11-04-2024 End: 11-04-2024 ambulatory Priscilla Robledo MD Facility: [facility] Start: 10-31-2024 End: 10-31-2024 ambulatory LAISHA SINGER Facility:[facility] Start: 10-20-2024 End: 10-21-2024 Admission to same day surgery center Laisha Singer MD Work Phone: Colorectal Surgery Comment on above: My bowel urgencies a nd weight gain Start: 10-20-2024 End: 10-21-2024 ambulatory Laisha Singer MD Work Phone: Colorectal Surgery Start: 10-18-2024 End: 10-18-2024 ambulatory Charles Kuns DO Work Phone: [facility] Work Phone: Start: 10-18-2024 End: 10-18-2024 Patient encounter procedure Charles Kuns DO Work Phone: [facility] Orthopedics Work Phone: Start: 10-18-2024 End: 10-18-2024 Patient encounter procedure Charles Kuns DO Work Phone: [facility] Ortho Start: 10-18-2024 End: 10-18-2024 ambulatory Charles Kuns DO Work Phone: [facility] Work Phone: Start: 10-09-2024 End: 10-09-2024 ambulatory Del HUDSON Facility:[facility] Start: 10-09-2024 End: 10-09-2024 Office outpatient visit 15 minutes Del Hudson MD Work Phone: Radiation Oncology Comment on above: Rectal adenocarcinom a (HCC) (Primary Dx) Start: 09-27-2024 End: 09-27-2024 Patient encounter procedure Charles Kuns DO Work Phone: [facility] Orthopedics Work Phone: Start: 09-27-2024 End: 09-27-2024 ambulatory Charles Kuns DO Work Phone: [facility] Work Phone: Start: 09-18-2024 Non-patient / Non-visit Charles Kuns DO Work Phone: [facility] Gastro Work Phone: Start: 09-18-2024 End: 09-18-2024 Admission to same day surgery center Charles Kuns DO Work Phone: [facility]Dig[facility] Work Phone: Start: 09-18-2024 End: 09-18-2024 ambulatory Charles Kuns DO Work Phone: [facility] Work Phone: Start: 09-09-2024 End: 09-09-2024 ambulatory Charles Kuns DO Work Phone: [facility] Work Phone: Start: 09-09-2024 End: 09-09-2024 Patient encounter procedure Charles Kuns DO Work Phone: [facility] Work Phone: Start: 09-04-2024 End: 09-04-2024 ambulatory Charles Kuns DO Work Phone: [facility] Work Phone: Start: 09-04-2024 End: 09-04-2024 Patient encounter procedure Charles Kuns DO Work Phone: [facility] Orthopedics Work Phone: Start: 09-03-2024 End: 09-03-2024 ambulatory TAPAN CORONA Facility:[facility] Start: 09-03-2024 End: 09-03-2024 Patient encounter procedure Tapan Corona MD Work Phone: Hematology Comment on above: History of rectal ca ncer (Primary Dx); Rectal cancer (HCC) Start: 08-27-2024 End: 08-27-2024 Telephone encounter Gagandeep Ward RN Hematology Comment on above: Results, Lab Start: 08-26-2024 Non-patient / Non-visit Charles Kuns DO Work Phone: [facility] Orthopedics Work Phone: Start: 08-26-2024 End: 08-26-2024 Admission to same day surgery center Charles Kuns DO Work Phone: [facility]Surgery Center Main [place] Start: 08-26-2024 End: 08-26-2024 ambulatory Charles Kuns DO Work Phone: [facility] Work Phone: Start: 08-20-2024 End: 08-20-2024 Patient encounter procedure Charles Kuns DO Work Phone: [facility] Work Phone: Start: 08-20-2024 End: 08-20-2024 ambulatory Charles Kuns DO Work Phone: [facility] Work Phone: Start: 08-20-2024 Encounter for preprocedural cardiovascular examination Amanda Chester [facility] Physician [facility] Start: 08-19-2024 End: 08-19-2024 ambulatory TAPAN CORONA Facility:[facility] Start: 08-19-2024 Non-patient / Non-visit Charles Kuns DO Work Phone: [facility] Work Phone: Start: 08-14-2024 End: 08-14-2024 ambulatory Charles Kuns DO Work Phone: [facility] Work Phone: Start: 08-14-2024 End: 08-14-2024 Patient encounter procedure Charles Kuns DO Work Phone: [facility] Orthoped[facility] Work Phone: Start: 07-17-2024 End: 07-17-2024 ambulatory Charles Kuns DO Work Phone: [facility] Work Phone: Start: 07-17-2024 End: 07-17-2024 Patient encounter procedure Charles Kuns DO Work Phone: [facility] Orth[facility] Work Phone: Start: 07-15-2024 End: 07-15-2024 ambulatory Priscilla Robledo MD Facility: [facility] Start: 06-25-2024 End: 06-25-2024 Patient encounter procedure Charles Kuns DO Work Phone: [facility] Orth[facility] Work Phone: Start: 06-11-2024 End: 06-11-2024 Patient encounter procedure Charles Kuns DO Work Phone: [facility] [place] Work Phone: Start: 06-11-2024 End: 06-11-2024 Patient encounter procedure Charles Kuns DO Work Phone: [facility] Work Phone: Start: 06-04-2024 End: 06-04-2024 Patient encounter procedure Charles Kuns DO Work Phone: [facility]Lab [place] Work Phone: Start: 06-04-2024 End: 06-04-2024 ambulatory Charles Kuns Facility:[facility] Start: 05-31-2024 Non-patient / Non-visit Charles Kuns DO Work Phone: [facility] Work Phone: Start: 05-31-2024 End: 05-31-2024 Admission to same day surgery center Charles Kuns DO Work Phone: [facility]-Surgery Center Main [place] Start: 05-31-2024 End: 05-31-2024 ambulatory Amanda Chester Facility:[facility] Start: 05-30-2024 End: 05-30-2024 Patient encounter procedure Charles Kuns DO Work Phone: [facility] Orthopedics Work Phone: Start: 05-30-2024 End: 05-30-2024 ambulatory Charles Kuns DO Work Phone: [facility] Work Phone: Start: 05-23-2024 End: 05-23-2024 Emergency department patient visit Charles Kuns DO Work Phone: [facility]Emer[facility] Work Phone: Start: 05-22-2024 Non-patient / Non-visit Charles Kuns DO Work Phone: [facility] Orth[facility] Work Phone: Start: 05-22-2024 End: 05-22-2024 Emergency department patient visit Charles Kuns DO Work Phone: [facility]-Emergency [facility] Work Phone: Start: 05-08-2024 End: 05-08-2024 Patient encounter procedure Tapan Corona MD Work Phone: Hematology Comment on above: History of rectal ca ncer (Primary Dx) Start: 05-08-2024 Non-patient / Non-visit Charles Kuns DO Work Phone: [facility] Work Phone: Start: 05-08-2024 End: 05-08-2024 ambulatory TAPAN CORONA Facility:[facility] Start: 04-30-2024 Non-patient / Non-visit Charles Kuns DO Work Phone: [facility] [place] Work Phone: Start: 04-10-2024 End: 04-10-2024 Patient encounter procedure Del Hudson MD Work Phone: Radiation Oncology Comment on above: Rectal adenocarcinom a (HCC) (Primary Dx) Start: 04-10-2024 End: 04-10-2024 ambulatory Del HUDSON Facility:[facility] Start: 03-25-2024 End: 03-25-2024 ambulatory Priscilla Robledo MD Facility:[facility] Start: 03-18-2024 End: 03-18-2024 ambulatory Priscilla Robledo MD Facility: [facility] Start: 03-04-2024 End: 03-04-2024 ambulatory Priscilla Robledo MD Facility:[facility] Start: 02-21-2024 End: 02-27-2024 Clinisync Result Encounter Cathleen TAY Work Phone: [facility] External Department Unsolicited Start: 02-21-2024 End: 02-27-2024 Clinisync Result Encounter Cathleen TAY Work Phone: [facility] External Department Unsolicited Start: 02-21-2024 Telephone encounter Kari Frias Hematology/Oncology Comment on above: Signatera results Start: 02-21-2024 End: 02-21-2024 ambulatory CATHLEEN VINCENT Not Available Start: 02-20-2024 End: 02-20-2024 ambulatory OSCAR Diane VALLE Not Available Start: 02-07-2024 End: 02-07-2024 ambulatory CRISTHIAN V Not Available Start: 02-06-2024 Telephone encounter Tapan tinsley MD Work Phone: [facility] Comment on above: Future Appointment Refill Request Start: 02-06-2024 End: 02-06-2024 ambulatory Tapan Corona MD Work Phone: Hematology/Oncology Comment on above: History of rectal ca ncer (Primary Dx) Start: 02-06-2024 End: 02-06-2024 Patient encounter procedure Tapan Corona MD Work Phone: Hematology/Oncology Start: 01-16-2024 Telephone encounter Laisha frias MD Work Phone: Colorectal Surgery Comment on above: Patient Question Start: 01-12-2024 End: 01-12-2024 ambulatory CRISTHIAN V Not Available Start: 01-09-2024 End: 01-09-2024 Patient encounter procedure Laisha Singer MD Work Phone: Colorectal Surgery Comment on above: Follow-up examinatio n after colorectal surgery (Primary Dx); Rectal cancer (HCC); Low anterior resection syndrome Start: 01-09-2024 End: 01-09-2024 ambulatory OSCAR Contreras LIANA Not Available Start: 01-08-2024 Telephone encounter Colleen Solorio RN Work Phone: Hematology/Oncology Comment on above: Care Coordination (L ab question) Start: 01-02-2024 End: 01-02-2024 ambulatory OSCAR Contreras LIANA Not Available Start: 12-26-2023 End: 12-26-2023 ambulatory OSCAR Contreras LIANA Not Available Start: 12-12-2023 Telephone encounter Tapan tinsley MD Work Phone: Radiation Oncology Comment on above: [place] Start: 11-24-2023 End: 11-24-2023 Patient encounter procedure Brandie Salmeron APRN.CRICKET COACH Work Phone: Colorectal Surgery Comment on above: Follow-up examinatio n after colorectal surgery (Primary Dx) Start: 11-20-2023 Admission to [facility] Laisha Singer MD Work Phone: Colorectal Surgery Comment on above: Sharp, Burning Pain R Hip Area Start: 11-20-2023 ambulatory Laisha Singer MD Work Phone: Colorectal Surgery Start: 11-13-2023 Telephone encounter Colleen Solorio RN Work Phone: Hematology/Oncology Comment on above: Care Coordination (H ospital d/c follow up call) Start: 11-06-2023 End: 11-10-2023 Evaluation and management of inpatient CHARLES BAZZI Facility:[facility] Start: 11-06-2023 Telephone encounter Colleen Solorio RN Work Phone: Hematology/Oncology Comment on above: Care Coordination (L ab results) Patient Question Start: 10-30-2023 Admission to [facility] Laisha Singer MD Work Phone: Colorectal Surgery Comment on above: Frequent Bowel Obstr uctions/Plan Start: 10-30-2023 ambulatory Laisha Singer MD Work Phone: Colorectal Surgery Start: 10-26-2023 Non-patient / Non-visit DO Angela tt Kuns Work Phone: [facility] Out[facility] Work Phone: Start: 10-26-2023 End: 10-28-2023 Evaluation and management of inpatient DO Charles Kuns Work Phone: [facility]-4 [facility] Surgical Work Phone: Start: 10-25-2023 Telephone encounter Laisha frias MD Work Phone: Colorectal Surgery Comment on above: Patient Question; Me dication Question Start: 10-24-2023 End: 10-24-2023 ambulatory DO Charlespeyton Dhillons Work Phone: [facility] Work Phone: Start: 10-24-2023 End: 10-24-2023 Patient encounter procedure DO Charlespeyton Dhillons Work Phone: [facility]-Lab [place] Work Phone: Start: 10-19-2023 Patient encounter procedure [facility] Provider [facility] Department Start: 10-17-2023 Telephone encounter Colleen Solorio RN Work Phone: Hematology/Oncology Comment on above: Care Coordination (s ignatera) Start: 10-10-2023 End: 10-10-2023 Patient encounter procedure Dheeraj De León LMT Work Phone: Hematology/Oncology Comment on above: Muscle soreness (Rosa raz Dx) Rectal adenocarcinom a (HCC) (Primary Dx) Start: 10-10-2023 Non-patient / Non-visit DO Angela tt Kuns Work Phone: [facility] Work Phone: Start: 10-10-2023 End: 10-10-2023 ambulatory Lab/Port Gabe Zurita Work Phone: Hematology/Oncology Comment on above: History of rectal ca ncer History of rectal ca ncer (Primary Dx) Start: 10-02-2023 End: 10-02-2023 ambulatory SUDHA B APLING Not Available Start: 09-30-2023 End: 10-01-2023 Non-patient / Non-visit DO Charles Kuns Work Phone: [facility] Med OutPt Work Phone: Start: 09-30-2023 End: 10-01-2023 Evaluation and management of inpatient DO Charles Kuns Work Phone: [facility]-3 [place] Med Surg Work Phone: Start: 09-22-2023 End: 09-22-2023 Patient encounter procedure Brandie Salmeron EDITOR PRODUCER.CRICKET COACH Work Phone: Colorectal Surgery Comment on above: Follow-up examinatio n after colorectal surgery (Primary Dx) Start: 09-14-2023 ambulatory Laisha Singer MD Work Phone: Colorectal Surgery Comment on above: Conference recommend ations Start: 09-14-2023 E-mail encounter fro m caregiver Laisha Singer MD Work Phone: [facility] Start: 09-06-2023 Telephone encounter Colleen Solorio RN Work Phone: Hematology/Oncology Comment on above: Care Coordination (H ospital d/c follow up call) Care Coordination (F ollow up appointment) Start: 09-05-2023 Admission to [facility] Laisha Singer MD Work Phone: Colorectal Surgery Comment on above: Surgery pathology Start: 09-05-2023 E-mail encounter fro m caregiver Laisha Singer MD Work Phone: [facility] Start: 09-05-2023 Telephone encounter Laisha frias MD Work Phone: Colorectal Surgery Comment on above: Professional Nursing Tutor - O ther (Tumor board) Start: 09-04-2023 Non-patient / Non-visit DO Angela tt Alejos Work Phone: [facility] Work Phone: Start: 09-03-2023 Non-patient / Non-visit DO Angela tt Kuns Work Phone: [facility] Work Phone: Start: 09-02-2023 Non-patient / Non-visit DO Angela tt Kuns Work Phone: [facility] Work Phone: Start: 09-01-2023 Telephone encounter Colleen Solorio RN Work Phone: Hematology/Oncology Comment on above: Care Coordination (H ospital d/c follow up call) Start: 09-01-2023 Non-patient / Non-visit DO Angela tt Kuns Work Phone: [facility] Work Phone: Start: 08-31-2023 End: 09-04-2023 Evaluation and management of inpatient CHARLES BRENDONDALLIN BAZZI Facility:[facility] Start: 08-31-2023 Non-patient / Non-visit DO Angela tt Kuns Work Phone: [facility] Work Phone: Start: 08-30-2023 Non-patient / Non-visit DO Angela tt Kuns Work Phone: [facility] Work Phone: Start: 08-29-2023 Non-patient / Non-visit DO Angela tt Kuns Work Phone: [facility] Work Phone: Start: 08-28-2023 Non-patient / Non-visit DO Angela tt Kuns Work Phone: [facility] Work Phone: Start: 08-27-2023 Non-patient / Non-visit DO Angela tt Kuns Work Phone: [facility] Work Phone: Start: 08-26-2023 Non-patient / Non-visit DO Angela tt Kuns Work Phone: [facility] Work Phone: Start: 08-25-2023 End: 08-30-2023 Evaluation and management of inpatient LAISHA SINGER Facility:[facility] Start: 08-11-2023 End: 08-11-2023 [place] [id number] Work Phone: Pre Anesthesia Comment on above: Pre-op examination ( Primary Dx); Atrial fibrillation, unspecified type (HCC); Essential hypertension; Hyperlipidemia, unspecified hyperlipidemia type; Gastroesophageal reflux disease without esophagitis; Other iron deficiency anemia; Rectal cancer (HCC); Mixed anxiety depressive disorder Start: 08-11-2023 End: 08-11-2023 Preprocedural examination done [facility] Work Phone: [facility] Work Phone: Start: 07-27-2023 ambulatory [facility] Facility:[facility] Start: 07-25-2023 End: 07-25-2023 ambulatory [facility] Amb[facility] Start: 07-25-2023 End: 07-25-2023 Office outpatient visit 15 minutes Marcos Rios MD Work Phone: [facility] Comment on above: Other chest pain (Pr imary Dx); Essential hypertension; Colorectal cancer (CMS/HCC); BMI 24.0-24.9, adult; History of atrial fibrillation Start: 07-04-2023 End: 07-04-2023 ambulatory CRISTHIAN VARGAS V Not Available Start: 06-26-2023 End: 06-26-2023 Admission to same day surgery center DO Charles Kuns Work Phone: [facility]-Surgery Center [facility] [place] Start: 06-26-2023 End: 06-26-2023 ambulatory DO Charles Kuns Work Phone: [facility] Work Phone: Start: 06-21-2023 Telephone encounter Colleen Solorio RN Work Phone: Hematology/Oncology Comment on above: Care Coordination (M edication update) Start: 06-20-2023 End: 06-20-2023 Nursing evaluation of patient and report Colleen Solorio RN Work Phone: Hematology/Oncology Comment on above: Rectal cancer (HCC) (Primary Dx) Start: 06-19-2023 End: 06-19-2023 ambulatory CRISTHIAN VARGAS V Not Available Start: 06-14-2023 End: 06-14-2023 ambulatory Tapan Corona MD Work Phone: Hematology/Oncology Comment on above: Rectal cancer (HCC) (Primary Dx) Start: 06-14-2023 End: 06-14-2023 Patient encounter procedure Tapan Corona MD Work Phone: [place] Start: 06-13-2023 End: 06-13-2023 ambulatory OSCAR VALLE Not Available Start: 06-12-2023 End: 06-12-2023 Subsequent hospital visit by physician Mri 6 Radio Main Q (I-Stat/1.5t/3t) Work Phone: MRI Q Comment on above: Rectal cancer (HCC) [C20] Start: 06-08-2023 Telephone encounter Princess (Pss) Leo burch Radiology Comment on above: Appointment reminder (Appointment reminder call--spoke with patient--gave directions to the office.) Start: 06-08-2023 ambulatory [facility] Facility: [facility] Start: 06-08-2023 End: 06-08-2023 Subsequent hospital visit by physician Laisha Singer MD Work Phone: Procedures Comment on above: Rectal cancer (HCC) [C20] Start: 05-29-2023 End: 05-29-2023 Patient encounter procedure Del Hudson MD Work Phone: Radiation Oncology Comment on above: Rectal adenocarcinom a (HCC) (Primary Dx) Start: 05-11-2023 End: 05-11-2023 ambulatory Charles Bazzi Other [facility] Other Start: 05-11-2023 Telephone encounter CharlesInformative [facility] Start: 05-10-2023 Patient encounter procedure Del Hudson MD Work Phone: [employer] Start: 05-10-2023 Radiation Oncology Note G Ramy Hudson MD Work Phone: Radiation Oncology Comment on above: Completion Note Start: 05-08-2023 End: 05-08-2023 Patient encounter procedure Del Hudson MD Work Phone: Radiation Oncology Comment on above: Rectal adenocarcinom a (HCC) (Primary Dx) Start: 05-02-2023 Patient encounter procedure Osmany Lee LMT Hematology/Oncology Comment on above: Muscle soreness (Rosa raz Dx) Start: 05-01-2023 End: 05-01-2023 ambulatory Charles [facility] [place] Other [facility] Other Start: 05-01-2023 Office outpatient vi sit 25 minutes Charles [facility] Start: 05-01-2023 End: 05-01-2023 Patient encounter procedure Lab/Port [facility]t Ghassan Work Phone: Radiation Oncology Comment on above: Dysuria (Primary Dx) Dysuria (Primary Dx) ; Rectal adenocarcinoma (HCC) Start: 04-28-2023 End: 04-28-2023 ambulatory Tapan Corona MD Work Phone: Hematology/Oncology Comment on above: Rectal cancer (HCC) (Primary Dx) Start: 04-28-2023 End: 04-28-2023 Patient encounter procedure Tapan Corona MD Work Phone: [employer] Start: 04-25-2023 Patient encounter procedure Osmany Lee LMT Hematology/Oncology Comment on above: Muscle soreness (Rosa [...] Tapan Corona MD Work Phone: [facility] Start: 04-10-2023 End: 04-10-2023 Patient encounter procedure Del Hudson MD Work Phone: Radiation Oncology Comment on above: Rectal adenocarcinom a (HCC) (Primary Dx) Start: 04-06-2023 Telephone encounter Mylene Card Rn) Zeeshan KIRKPATRICK [facility] Radiology Procedure Comment on above: Radiology Pre Proced ure Instructions Start: 04-06-[address] Charles Bazzi Fa cility:[id number] Start: 04-05-2023 End: 04-06-2023 Evaluation and management of inpatient DO Charles Bazzi Work Phone: [facility] [place] [facility] Work Phone: Start: 04-05-2023 End: 04-06-2023 observation encounter DO Charles Bazzi Work Phone: [facility] Work Phone: Start: 04-05-2023 Telephone encounter [...] 03-28-2023 End: 03-28-2023 ambulatory Imad Asaad Other [facility] Other Start: 03-28-2023 Telephone encounter Tomi Greene [facility] Family [facility] Start: 03-22-2023 End: 03-22-2023 Subsequent hospital visit [...] encounter procedure Tapan Corona MD Work Phone: [place] Comment on above: Rectal adenocarcinom a (HCC) [...] Phone: Procedures Start: 03-15-2023 ambulatory JIMENA HUDSON Facility:[facility] Start: 03-15-2023 End: 03-15-2023 Subsequent [...] surgery center DO Charles Bazzi Work Phone: [facility] Work Phone: Start: 02-28-2023 End: 02-28-2023 ambulatory Charles Bazzi Other [facility] Other Start: 02-28-2023 Telephone encounter Charles Bazzi [facility] [place] Start: 02-23-2023 End: 02-23-2023 ambulatory Imad Asaad Other [facility] Other Start: 02-23-2023 Telephone encounter Imad Asaad [facility] Start: 02-07-2023 End: 02-07-2023 ambulatory Charles Bazzi Other [facility] Other Start: 02-07-2023 Telephone encounter Charles Bazzi [facility] [place] Start: 11-07-2022 End: 11-08-[address] SHAKILA CHAO . Facility:[facility]1 Start: 11-03-2022 End: 11-03-[address] SHAKILA CHAO . Facility:[facility] Start: 10-31-2022 End: 10-31-2022 ambulatory Charles Bazzi Other [facility] Other Start: 10-31-2022 Office outpatient vi sit 25 minutes Charles Bazzi [facility] [place] Start: 10-26-2022 Office consultation new/estab patient 40 min Charles Bazzi Work Phone: [facility] 250 DO Work Phone: Start: 10-26-[address] Marcos Rios Facility: Start: 10-11-2022 End: 10-11-2022 ambulatory Charles Kuns Other [facility] Other Start: 10-11-2022 Telephone encounter Charles Kuns [facility] [place] Start: 10-03-2022 End: 10-03-2022 ambulatory Charles Kuns Other [facility] Other Start: 10-03-2022 Office outpatient vi sit 25 minutes Charles Kuns [facility] [place] Start: 10-03-2022 Telephone encounter Charles Kuns [facility] [place] Start: 09-22-2022 End: 09-22-2022 ambulatory Charles Kuns Other [facility] Other Start: 09-22-2022 Telephone encounter Charles Kuns [facility] [place] Start: 09-20-2022 End: 09-20-2022 ambulatory Charles Kuns Other [facility] Other Start: 09-20-2022 Telephone encounter Charles Kuns [facility] [place] Start: 09-06-2022 End: 09-06-2022 ambulatory Charles Kuns Other [facility] Other Start: 09-06-2022 Telephone encounter Charles Kuns [facility] [place] Start: 09-05-2022 End: 09-05-2022 ambulatory Charles Kuns Other [facility] Other Start: 09-05-2022 Telephone encounter Charles Kuns [facility] [place] Start: 09-01-2022 End: 09-13-2022 ambulatory CAROLINE RANGEL Facility:[facility]1 Start: 08-18-2022 End: 08-18-2022 ambulatory [place] Other [facility] Other Start: 08-18-2022 Office outpatient vi sit 25 minutes [place] [facility] Start: 08-17-2022 End: 08-17-2022 ambulatory Charles Kuns Other [facility] Other Start: 08-17-2022 Telephone encounter Charles Kuns [facility] Start: 05-25-2022 End: 05-25-2022 ambulatory DO Charles Kuns Work Phone: [facility] Work Phone: Start: 05-25-2022 End: 05-25-2022 Patient encounter procedure DO Charles Kuns Work Phone: [facility] Start: 05-20-2022 End: 05-20-2022 ambulatory DO Charles Kuns Work Phone: [facility] Work Phone: Start: 05-20-2022 End: 05-20-2022 Patient encounter procedure DO Charles Kuns Work Phone: [facility] Start: 05-18-2022 End: 05-18-2022 ambulatory Charles Kuns Other [facility] Other Start: 05-18-2022 Encounter by anthony camacho Charles Kuns [facility] Start: 05-18-2022 Office outpatient vi sit 25 minutes Caroline Juan Carlos II [facility] Start: 05-11-2022 End: 05-11-2022 ambulatory Caroline Juan Carlos II Other [facility] Other Start: 05-11-2022 Office outpatient vi sit 25 minutes [place] [facility] Start: 04-27-2022 End: 04-27-2022 ambulatory Charles Kuns Other [facility] Other Start: 04-27-2022 Telephone encounter Charlespeyton Dhillons [facility] [place] Start: 04-20-2022 End: 04-20-2022 ambulatory Charlespeyton Dhillons Other [facility] [employer] Other Start: 04-20-2022 Telephone encounter Charlespeyton Dhillons [facility] Start: 02-11-2022 End: 02-11-2022 ambulatory Caroline Juan Carlos II Other [facility] [employer] Other Start: 02-11-2022 Office outpatient ne w 45 minutes [place] [facility] Start: 02-11-2022 End: 02-11-2022 Patient encounter procedure DO Charlespeyton Bazzi Work Phone: [facility] Start: 04-25-2017 Ambulatory CHARLESPEYTON BAZZI Facility:1 [id number] Patient encounter status Charles Bazzi Work Phone: [facility] 250 DO Work Phone: Procedures Date Procedure Procedure Detail Performing Clinician Start: 02-10-2025 Blood count complete auto&auto difrntl wbc Tapan Corona MD Work Phone: Start: 11-05-2024 [facility] ANORECTAL MANOMETRY Laisha Singer MD Work Phone: Start: 10-18-2024 Plain X-ray of right hand Charles Kuns DO Work Phone: Start: 09-27-2024 Plain X-ray of right hand Charles Kuns DO Work Phone: Start: 09-18-2024 Colonoscopy Charles Kuns DO Work Phone: Start: 08-26-2024 Aerobic microbial culture Charles Kuns DO Work Phone: Start: 08-26-2024 Anaerobic microbial culture Charles Kuns DO Work Phone: Start: 08-26-2024 Gram stain microscopy B rett Dixie [employer] Work Phone: Start: 08-26-2024 Arthrodesis of interphalangeal joint of finger Charles Bazzi [employer] Work Phone: Start: 08-26-2024 X-ray of right middle finger Charles Bazzi [employer] Work Phone: Start: 08-19-2024 Carcinoembryonic antigen cea Charles Bazzi [employer] Work Phone: Comment on above: Carcinoembryonic ant igen test is used as an aid in monitoring response to treatment or recurrence in patients with established colorectal, breast, lung, prostatic, pancreatic, and ovarian carcinomas. Clinical correlation is required.The Carcinoembryonic antigen test was performed using the Echodioel DXI paramagnetic particle chemiluminescent immunoassay method. Results obtained with different assay methods or kits cannot be used interchangeably. Start: 05-31-2024 Aerobic microbial culture Charles Bazzi [employer] Phone: Start: 05-31-2024 Anaerobic microbial culture Charles Bazzi [employer] Work Phone: Start: 05-31-2024 Gram stain microscopy B yani Bazzi [employer] Phone: Start: 05-31-2024 Incision and drainag e of lower extremity Charles Bazzi [employer] Phone: Start: 05-30-2024 Plain X-ray of right hand Charles Bazzi [employer] Phone: Start: 05-23-2024 Bacteria identified in Blood by Culture Charles Bazzi [employer] Work Phone: Start: 05-22-2024 Bacteria identified in Blood by Culture Charles Bazzi [employer] Work Phone: Start: 05-22-2024 Bacterial ID (NA Mul tiplex Assay) Charles Bazzi [employer] Work Phone: Start: 05-22-2024 X-ray of right middle finger Charles Bazzi [employer] Work Phone: Start: 05-08-2024 Carcinoembryonic antigen cea Charles Bazzi DO Work Phone: Comment on above: Carcinoembryonic ant igen test is used as an aid in monitoring response to treatment or recurrence in patients with established colorectal, breast, lung, prostatic, pancreatic, and ovarian carcinomas. Clinical correlation is required.The Carcinoembryonic antigen test was performed using the Echodioel DXI paramagnetic particle chemiluminescent immunoassay method. Results obtained with different assay methods or kits cannot be used interchangeably. Start: 02-21-2024 IGP,APTIMA HPV,AGE GDLN Cathleen TAY Work Phone: Start: 01-12-2024 H/O: ileostomy Ileostomy status Cathleen TAY Work Phone: Start: 11-06-2023 Antibody screen LAISHA SINGER Comment on above: Order Comment: Speci men Type: BLOOD SPECIMENOrdering Facility: [facility] Address: [address] [place] [address] Performed By: #### T SCR ####[facility] [id number] [place] [address] [place] Start: 10-26-2023 Diagnostic radiograp hy of abdomen DO Charles Bazzi Work Phone: Start: 10-25-2023 CT angiography of thorax DO Charles Bazzi Work Phone: Start: 10-25-2023 Computed tomography of abdomen and pelvis with contrast DO Charlespeyton Bazzi Work Phone: Start: 10-25-2023 Urine culture DO Charlespeyton Bazzi Work Phone: Start: 10-10-2023 Blood count [...] abdomen and pe lvis without contrast DO Charlespeyton Bazzi Work Phone: Start: 06-26-2023 Plain chest X-ray DO Br ett Dixie Work Phone: Start: 06-26-2023 OR Infusaport Insertion/Removal (Not Applicable) DO Charles Alejos Work Phone: Start: 06-12-2023 Mri pelvis w/o & w/c ontrast material Tapan Corona MD Work Phone: Start: 06-08-2023 Sigmoidoscopy flx dx w/collj spec br/wa if pfrmd [facility] Provider Start: 04-05-2023 CT angiography of thorax DO Charles Bazzi Work Phone: Start: 03-16-2023 Sigmoidoscopy flx dx w/collj spec br/wa if pfrmd Laisha Singer MD Work Phone: Start: 03-15-2023 Mri pelvis w/o & w/c ontrast material G Shan Hudson MD Work Phone: Start: 03-06-2023 Computed tomography of abdomen and pelvis with contrast DO Charles Bazzi Work Phone: Start: 03-06-2023 CT of thorax with contrast DO Charlespeyton Dhillons Work Phone: Start: 03-06-2023 Colonoscopy DO Charles K uns Work Phone: Start: 05-20-2022 Screening mammograph y of bilateral breasts DO Charlespeyton Dhillons Work Phone: Start: 02-11-2022 Pelvis X-ray DO Charles K uns Work Phone: Start: 02-11-2022 X-ray of both knees DO Charles Dhillons Work Phone: Start: 09-21-2018 Mammography Cathleen TAY Work Phone: Start: 07-10-2015 Total colonoscopy Charlespeyton Bazzi Work Phone: Cholecystectomy Charlespeyton Bazzi Work Phone: Excision of melanoma Charles Bazzi Work Phone: H/O: ileostomy Ileostomy status DO Charles Bazzi Work Phone: Neuroplasty Charlespeyton Bazzi Work Phone: Operative procedure on ankle Charles Bazzi Work Phone: Plan of Treatment Date Care Activity Detail Author Start: 2028 RSV Vaccine (1 - 1-dose 75+ series) RSV Vaccine (1 - 1-dose 75+ series) [facility] Start: 07-27-2028 Screening for malignant neoplasm of colon [facility] Start: 06-08-2028 Colorectal Cancer Screening Colorectal Cancer Screening [facility] Start: 06-08-2028 Screening for malignant neoplasm of colon [facility] Start: 06-08-2028 Sigmoidoscopy Sigmoidoscopy [facility] Start: 03-16-2028 Colorectal Cancer Screening Colorectal Cancer Screening [facility] Start: 03-16-2028 SIGMOIDOSCOPY SIGMOIDOSCOPY [facility] Start: 02-11-2028 Diabetes Screening Diabetes Screening [facility] Start: 08-19-2027 Diabetes Screening Diabetes Screening [facility] Start: 05-08-2027 Diabetes Screening Diabetes Screening [facility] Start: 02-05-2027 Diabetes Screening Diabetes Screening [facility] Start: 11-09-2026 Diabetes Screening Diabetes Screening [facility] Start: 11-05-2026 Diabetes Screening Diabetes Screening [facility] Start: 10-09-2026 Diabetes Screening Diabetes Screening [facility] Start: 09-04-2026 Diabetes Screening Diabetes Screening [facility] Start: 09-01-2026 Diabetes Screening Diabetes Screening [facility] Start: 07-13-2026 Diabetes Screening Diabetes Screening [facility] Start: 06-14-2026 Diabetes Screening Diabetes Screening [facility] Start: 04-28-2026 Diabetes Screening Diabetes Screening [facility] Start: 04-14-2026 Diabetes Screening Diabetes Screening [facility] Start: 09-03-2025 BP Controlled (<130/80) BP Controlled (<130/80) [facility] Start: 08-23-2025 End: 11-22-2025 Carcinoembryonic Ag [Mass/volume] in Serum or Plasma CARCINOEMBRYONIC ANTIGEN Lab Routine History of rectal cancer Expected: 08/23/2025 (Approximate), Expires: 11/22/2025 [facility] Comment on above: Expected: 08/23/2025 (Approximate), Expi res: 11/22/2025 Start: 08-23-2025 End: 11-22-2025 CBC W Auto Differential panel - Blood COMPLETE BLOOD COUNT AND DIFFERENTIAL Lab Routine History of rectal cancer Expected: 08/23/2025 (Approximate), Expires: 11/22/2025 [facility] Comment on above: Expected: 08/23/2025 (Approximate), Expi res: 11/22/2025 Start: 08-23-2025 End: 11-22-2025 Comprehensive metabolic 2000 panel - Serum or Plasma COMPREHENSIVE METABOLIC PANEL Lab Routine History of rectal cancer Expected: 08/23/2025 (Approximate), Expires: 11/22/2025 [facility] Comment on above: Expected: 08/23/2025 (Approximate), Expi res: 11/22/2025 Start: 08-23-2025 End: 11-22-2025 MISC SEND OUT TST 1 MISC SEND OUT TST 1 Lab Routine History of rectal cancer Expected: 08/23/2025 (Approximate), Expires: 11/22/2025 [facility] Work Phone: Comment on above: Expected: 08/23/2025 (Approximate), Expi res: 11/22/2025 Start: 08-21-2025 End: 08-21-2025 Patient encounter procedure 08/21/2025 12:00 PM EST Visit (SP) Office Hematology [address] [place], [place] [id number] Tapan Corona MD [address] [place] [id number] F/U with Dr. Corona 08/23/25, labs 1 week prior Hematology Comment on above: F/U with Dr. 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 [place] [address] Del Hudson MD 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] Start: 03-13-2025 End: 03-13-2025 Patient encounter procedure 03/13/2025 8:30 AM EDT Appointment Procedures [address] [place] [address] [place] [address] [place] [address] History of colon cancer [Z85.038] Procedures Comment on above: History of colon cancer [Z85.038] Start: 03-12-2025 End: 03-12-2025 ambulatory 03/12/2025 2:45 PM EDT OT/PT/Speech Visit Physical Therapy [address] [facility] [place] [address] Chapincito Atnhony, PT [address] [place] [address] 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] Physical Therapy Comment on above: 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] Start: 03-10-2025 Influenza vaccination Influenza Vaccine (#1) [facility] Start: 02-20-2025 End: 02-20-2025 Patient encounter procedure Colorectal Surgery Comment on above: Est Pt: 1 yr f/up, robotic LAR, DLI, molly lary 08/25/23 RECTAL CA Start: 02-19-2025 End: 02-19-2025 ambulatory 02/19/2025 1:00 PM EDT OT/PT/Speech Visit Physical Therapy [address] [place] [address] Chapincito Anthony, PT [address] [place] [address] 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] Physical Therapy Comment on above: 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] Start: 02-13-2025 End: 05-15-2025 Carcinoembryonic Ag [Mass/volume] in Serum or Plasma CARCINOEMBRYONIC ANTIGEN Lab Routine History of rectal cancer Rectal cancer (HCC) Expected: 02/13/2025 (Approximate), Expires: 05/15/2025 [facility] Comment on above: Expected: 02/13/2025 (Approximate), Expi res: 05/15/2025 Start: 02-13-2025 End: 05-15-2025 CBC W Auto Differential panel - Blood COMPLETE BLOOD COUNT AND DIFFERENTIAL Lab Routine History of rectal cancer Rectal cancer (HCC) Expected: 02/13/2025 (Approximate), Expires: 05/15/2025 [facility] Work Phone: Comment on above: Expected: 02/13/2025 (Approximate), Expi res: 05/15/2025 Start: 02-13-2025 End: 05-15-2025 Comprehensive metabolic 2000 panel - Serum or Plasma COMPREHENSIVE METABOLIC PANEL Lab Routine History of rectal cancer Rectal cancer (HCC) Expected: 02/13/2025 (Approximate), Expires: 05/15/2025 [facility] Comment on above: Expected: 02/13/2025 (Approximate), Expi res: 05/15/2025 Start: 02-10-2025 End: 02-10-2025 Patient encounter procedure 02/10/2025 1:15 PM EDT Appointment Radiology Pet CT 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] Start: 12-31-2024 End: 12-31-2024 Patient encounter procedure 12/31/2024 9:00 AM EDT Office Visit [facility] [address] [place] [id number] Oscar Valle, [address] [place] [address] [facility] Start: 12-24-2024 End: 12-24-2024 ambulatory 12/24/2024 11:30 AM EDT OT/PT/Speech Visit Physical Therapy [address] [place] [address] Chapincito Anthony, PT [address] [place] [address] 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 Orly ambrose message Colorectal Surgery Comment on above: Pt requesting to see Dr. Orly toscano message Start: 10-18-2024 Plain X-ray of right hand XR hand RT min 3V* [facility] Start: 10-18-2024 XR Hand - right GE [address] [facility] Start: 10-09-2024 BP Controlled (<130/80) BP Controlled (<130/80) [facility] Start: 10-09-2024 End: 10-09-2024 Patient encounter procedure Radiation Oncology Comment on above: followup Start: 09-27-2024 Plain X-ray of right hand XR hand RT min 3V* [facility] Start: 09-27-2024 XR Hand - right GE [address] [facility] Start: 09-21-2024 BP Controlled (<130/80) BP Controlled (<130/80) [facility] Start: 09-18-2024 [facility] Start: 09-03-2024 End: 12-03-2024 MISC SEND OUT TST 1 MISC SEND OUT TST 1 Lab Routine History of rectal cancer Rectal cancer (HCC) Expected: 09/03/2024, Expires: 12/03/2024 [facility] Comment on above: Expected: 09/03/2024, Expires: Start: 09-03-2024 End: 09-03-2024 Follow-up encounter 09/03/2024 1:45 PM EST Visit (SP) Office Hematology [address] [place] [address] Tapan Corona MD [address] [place] [address] Follow up in August Hematology Comment on above: Follow up in August Start: 08-26-2024 A[address] Aerobic Culture [facility] Start: 08-26-2024 [address] Anaerobic Culture [facility] Start: 08-26-2024 Microscopic observation [Identifier] in Unspecified specimen by Gram stain [facility] Start: 08-26-2024 [facility] Start: 08-26-2024 [facility] Start: 08-26-2024 [facility] Start: 08-26-2024 X-ray of right middle finger XR finger RT 3rd digit [facility] Start: 08-26-2024 XR Finger third - right Views [facility] Start: 08-14-2024 End: 11-13-2024 Carcinoembryonic Ag [Mass/volume] in Serum or Plasma CARCINOEMBRYONIC ANTIGEN Lab Routine History of rectal cancer Expected: 08/14/2024 (Approximate), Expires: 11/13/2024 [facility] Comment on above: Expected: 08/14/2024 (Approximate), Expi res: 11/13/2024 Start: 08-14-2024 End: 11-13-2024 CBC W Auto Differential panel - Blood COMPLETE BLOOD COUNT AND DIFFERENTIAL Lab Routine History of rectal cancer Expected: 08/14/2024 (Approximate), Expires: 11/13/2024 [facility] Expert TA Work Phone: Comment on above: Expected: 08/14/2024 (Approximate), Expi res: 11/13/2024 Start: 08-14-2024 End: 11-13-2024 Comprehensive metabolic 2000 panel - Serum or Plasma COMPREHENSIVE METABOLIC PANEL Lab Routine History of rectal cancer Expected: 08/14/2024 (Approximate), Expires: 11/13/2024 [facility] Comment on above: Expected: 08/14/2024 (Approximate), Expi res: 11/13/2024 Start: 08-14-2024 End: 11-13-2024 MISC SEND OUT TST 1 MISC SEND OUT TST 1 Lab Routine History of rectal cancer Expected: 08/14/2024 (Approximate), Expires: 11/13/2024 [facility] Comment on above: Expected: 08/14/2024 (Approximate), Expi res: 11/13/2024 Start: 08-11-2024 BP Controlled (<130/80) BP Controlled (<130/80) [facility] Start: 07-10-2024 Advance Directive Discussion Advance Directive Discussion [facility] Start: 05-31-2024 End: 05-31-2024 [facility] Start: 05-30-2024 Plain X-ray of right hand XR hand RT min 3V* [facility] Start: 05-30-2024 XR Hand - right GE [address] [facility] Start: 05-23-2024 Bacteria identified in Blood by Culture Blood Culture [facility] Start: 05-23-2024 [facility] Start: 05-22-2024 Bacteria identified in Blood by Culture Blood Culture [facility] Start: 05-22-2024 End: 05-22-2024 [facility] Start: 05-08-2024 End: 08-07-2024 Carcinoembryonic Ag [Mass/volume] in Serum or Plasma CARCINOEMBRYONIC ANTIGEN Lab Routine History of rectal cancer Expected: 05/08/2024 (Approximate), Expires: 08/07/2024 [facility] Comment on above: Expected: 05/08/2024 (Approximate), Expi res: 08/07/2024 Start: 05-08-2024 End: 08-07-2024 CBC W Auto Differential panel - Blood COMPLETE BLOOD COUNT AND DIFFERENTIAL Lab Routine History of rectal cancer Expected: 05/08/2024 (Approximate), Expires: 08/07/2024 [facility] Work Phone: Comment on above: Expected: 05/08/2024 (Approximate), Expi res: 08/07/2024 Start: 05-08-2024 End: 08-07-2024 Comprehensive metabolic 2000 panel - Serum or Plasma COMPREHENSIVE METABOLIC PANEL Lab Routine History of rectal cancer Expected: 05/08/2024 (Approximate), Expires: 08/07/2024 [facility] Comment on above: Expected: 05/08/2024 (Approximate), Expi res: 08/07/2024 Start: 05-08-2024 End: 08-07-2024 MISC SEND OUT TST 1 MISC SEND OUT TST 1 Lab Routine History of rectal cancer Expected: 05/08/2024 (Approximate), Expires: 08/07/2024 [facility] Comment on above: Expected: 05/08/2024 (Approximate), Expi res: 08/07/2024 Start: 05-08-2024 End: 05-08-2024 Follow-up encounter 05/08/2024 1:45 PM EDT Visit (SP) Office Hematology [id number] [place] [address] Tapan Corona MD [address] [place] [address] 3 month follow up Hematology Comment on above: 3 month follow up Start: 05-08-2024 End: 05-08-2024 Patient encounter procedure 05/08/2024 1:30 PM EDT Results Only [facility] [address] [place] [address] labs [facility] Draw [facility] Comment on above: labs fransiscoyenicarson Start: 04-10-2024 End: 04-10-2024 Patient encounter procedure 04/10/2024 10:15 AM EDT Office Visit Radiation Oncology [address] [place] [address] Del Hudson MD [address] [place] [address] followup Radiation Oncology Comment on above: followup Start: 03-10-2024 Covid-19 Vaccine ( season) Covid-19 Vaccine ( season) [facility] Start: 03-10-2024 Covid-19 Vaccine ( season) Covid-19 Vaccine ( season) [facility] Start: 03-10-2024 Influenza vaccination [facility] Start: 02-13-2024 End: 02-13-2024 Patient encounter procedure 02/13/2024 1:20 PM EDT Office Visit Colorectal Surgery [address] [place] [address] [place] [address] [place] [address] Est patient, 3 month follow up, , robotic LAR, DLI, surgery 08/25/23 Colorectal Surgery Comment on above: Est patient, 3 month follow up, , roboti c LAR, DLI, surgery 08/25/23 Start: 02-06-2024 End: 02-06-2024 Follow-up encounter 02/06/2024 11:15 AM EDT Visit (SP) Office Hematology/Oncology [address] [place] [address] Tapan Corona MD [address] [facility] [place] [address] 3 month follow up [facility] Hematology/Oncology Comment on above: 3 month follow up [facility] Start: 02-06-2024 End: 02-06-2024 Patient encounter procedure 02/06/2024 11:00 AM EDT Office Visit [facility] [address] [place] [address] [place] [address] labs [facility] Comment on above: labs Start: 01-31-2024 End: 01-31-2024 Follow-up encounter Hematology/Oncology Comment on above: 3 month follow up [facility] Start: 01-26-2024 End: 01-26-2024 Patient encounter procedure 01/26/2024 11:00 AM EDT Office Visit [facility] [address] [facility] [address] [place] [id number] Marcos Rios MD [address] [facility] [address] [place] [address] [facility] Start: 01-16-2024 End: 01-16-2024 Follow-up encounter Hematology/Oncology Comment on above: 3 month follow up [facility] Start: 01-09-2024 End: 01-09-2024 Patient encounter procedure 01/09/2024 2:20 PM EDT Office Visit Colorectal Surgery [address] [place] [address] [place] [address] [place], [place] [id number] Est patient, 3 month follow up, , robotic LAR, DLI, surgery 08/25/23 Colorectal Surgery Comment on above: Est patient, 3 month follow up, , roboti c LAR, DLI, surgery 08/25/23 Start: 01-09-2024 End: 04-09-2024 Carcinoembryonic Ag [Mass/volume] in Serum or Plasma CEA BLD Lab Routine History of rectal cancer Expected: 01/09/2024 (Approximate), Expires: 04/09/2024 [facility] Work Phone: Comment on above: Expected: 01/09/2024 (Approximate), Expi res: 04/09/2024 Start: 01-09-2024 End: 04-09-2024 CBC W Auto Differential panel - Blood CBC + DIFF Lab Routine History of rectal cancer Expected: 01/09/2024 (Approximate), Expires: 04/09/2024 [facility] Work Phone: Comment on above: Expected: 01/09/2024 (Approximate), Expi res: 04/09/2024 Start: 01-09-2024 End: 04-09-2024 Comprehensive metabolic 2000 panel - Serum or Plasma COMP METABOLIC PANEL Lab Routine History of rectal cancer Expected: 01/09/2024 (Approximate), Expires: 04/09/2024 [facility] Work Phone: Comment on above: Expected: 01/09/2024 (Approximate), Expi res: 04/09/2024 Start: 01-09-2024 End: 04-09-2024 MISC SEND OUT TST 1 MISC SEND OUT TST 1 Lab Routine History of rectal cancer Expected: 01/09/2024 (Approximate), Expires: 04/09/2024 [facility] Work Phone: Comment on above: Expected: 01/09/2024 (Approximate), Expi res: 04/09/2024 Start: 01-09-2024 End: 01-09-2024 ambulatory 01/09/2024 10:00 AM EDT Results Only [facility] [address] [address] [facility] Start: 11-30-2023 End: 11-30-2023 Patient encounter procedure 11/30/2023 1:00 PM EDT Office Visit Colorectal Surgery [address] [place] [address] [place] [address] [place] [address] Est pt: 3 mo f/up, robotic LAR, DLI, Colorectal Surgery Comment on above: Est pt: 3 mo f/up, robotic LAR, DLI, Start: 11-24-2023 End: 11-24-2023 Patient encounter procedure 11/24/2023 3:40 PM EDT Office Visit Colorectal Surgery [address] [place] [address] Brandie Salmeron APRN.CRICKET COACH [address] [facility] [address] [place] [address] PostOp: Ileostomy Closure, Colorectal Surgery Comment on above: PostOp: Ileostomy Closure, Start: 11-07-2023 End: 02-06-2024 Carcinoembryonic Ag [Mass/volume] in Serum or Plasma CEA BLD Lab Routine History of rectal cancer Expected: 11/07/2023 (Approximate), Expires: 02/06/2024 [facility] Work Phone: Comment on above: Expected: 11/07/2023 (Approximate), Expi res: 02/06/2024 Start: 11-07-2023 End: 11-07-2023 Patient encounter procedure 11/07/2023 10:20 AM EDT Office Visit Colorectal Surgery [address] [place] [address] [place] [address] [place] [phone] Est patient, hospital follow up, SBO x3 Colorectal Surgery Comment on above: Est patient, hospital follow up, SBO x3 Start: 10-28-2023 [facility] Start: 10-27-[address] [facility] Start: 10-26-2023 [facility] Start: 10-26-2023 [address] of abdomen [facility] Start: 10-26-2023 Referral to general surgeon [facility] Start: 10-26-[address] [facility] Start: 10-26-2023 [facility] Start: 10-25-2023 CT angiography of thorax CT angio chest PE protocol [facility] Start: 10-25-[address] [facility] Start: 10-25-2023 Computed tomography of abdomen and pelvis with contrast CT abdomen pelvis w con [facility] Start: 10-25-2023 CT Abdomen and Pelvis W contrast IV [facility] Start: 10-25-2023 Bacteria identified in Blood by Culture [facility] Start: 10-25-2023 Bacteria identified in Urine by Culture [facility] Start: 10-25-2023 Blood culture for bacteria, including anaerobic screen Blood Culture [facility] Start: 10-10-2023 End: 01-09-2024 MISC SEND OUT TST 1 [facility] Work Phone: Comment on above: Expected: 10/10/2023, Expires: Start: 10-01-2023 [facility] Start: 09-30-2023 Referral to general [facility] Start: 09-30-[address] [facility] Start: 09-30-2023 CT Abdomen and Pelvis WO contrast [facility] Start: 09-30-2023 CT of abdomen and pelvis without contrast CT abdomen pelvis wo con [facility] Start: 08-11-2023 End: 11-10-2023 CONFIRM BLOOD TYPE [facility] Work Phone: Comment on above: Expected: 08/11/2023, Expires: Start: 07-10-2023 Advance Directive Discussion Advance Directive Discussion [facility] Start: 07-06-2023 End: 10-05-2023 Carcinoembryonic Ag [Mass/volume] in Serum or Plasma CEA BLD Lab Routine Rectal cancer (HCC) Expected: 07/06/2023, Expires: 10/05/2023 [facility] Work Phone: Comment on above: Expected: 07/06/2023, Expires: 4 Start: 07-06-2023 End: 10-05-2023 CBC W Auto Differential panel - Blood CBC + DIFF Lab Routine Rectal cancer (HCC) Expected: 07/06/2023, Expires: 10/05/2023 [facility] Work Phone: Comment on above: Expected: 07/06/2023, Expires: Start: 07-06-2023 End: 10-05-2023 Comprehensive metabolic 2000 panel - Serum or Plasma COMP METABOLIC PANEL Lab Routine Rectal cancer (HCC) Expected: 07/06/2023, Expires: 10/05/2023 [facility] Work Phone: Comment on above: Expected: 07/06/2023, Expires: Start: 07-06-2023 End: 06-14-2024 Ferritin [Mass/volume] in Serum or Plasma FERRITIN BLD Lab Routine Rectal cancer (HCC) Expected: 07/06/2023, Expires: 06/14/2024 [facility] Work Phone: Comment on above: Expected: 07/06/2023, Expires: 4 Start: 07-06-2023 End: 06-14-2024 Iron and Iron binding capacity panel - Serum or Plasma IRON + TIBC Lab Routine Rectal cancer (HCC) Expected: 07/06/2023, Expires: 06/14/2024 [facility] Work Phone: Comment on above: Expected: 07/06/2023, Expires: Start: 06-26-2023 [facility] Start: 06-26-2023 [facility] Start: 06-09-2023 End: 09-08-2023 Carcinoembryonic Ag [Mass/volume] in Serum or Plasma CEA BLD Lab Routine Rectal cancer (HCC) Expected: 06/09/2023 (Approximate), Expires: 09/08/2023 [facility] Work Phone: Comment on above: Expected: 06/09/2023 (Approximate), Expi res: 09/08/2023 Start: 06-09-2023 End: 09-08-2023 CBC W Auto Differential panel - Blood CBC + DIFF Lab Routine Rectal cancer (HCC) Expected: 06/09/2023 (Approximate), Expires: 09/08/2023 [facility] Work Phone: Comment on above: Expected: 06/09/2023 (Approximate), Expi res: 09/08/2023 Start: 06-09-2023 End: 09-08-2023 Comprehensive metabolic 2000 panel - Serum or Plasma COMP METABOLIC PANEL Lab Routine Rectal cancer (HCC) Expected: 06/09/2023 (Approximate), Expires: 09/08/2023 [facility] Work Phone: Comment on above: Expected: 06/09/2023 (Approximate), Expi res: 09/08/2023 Start: 06-09-2023 End: 05-27-2024 Mri pelvis w/o & w/contrast material MRI RECTUM WO/W IVCON Radiology Routine Rectal cancer (HCC) Expected: 06/09/2023 (Approximate), Expires: 05/27/2024 [facility] Work Phone: Comment on above: Expected: 06/09/2023 (Approximate), Expi res: 05/27/2024 Start: 04-28-2023 End: 06-28-2023 CBC W Auto Differential panel - Blood CBC + DIFF Lab Routine Rectal cancer (HCC) Expected: 04/28/2023 (Approximate), Expires: 06/28/2023 [facility] Work Phone: Comment on above: Expected: 04/28/2023 (Approximate), Expi res: 06/28/2023 Start: 04-28-2023 End: 06-28-2023 Comprehensive metabolic 2000 panel - Serum or Plasma COMP METABOLIC PANEL Lab Routine Rectal cancer (HCC) Expected: 04/28/2023 (Approximate), Expires: 06/28/2023 [facility] Work Phone: Comment on above: Expected: 04/28/2023 (Approximate), Expi res: 06/28/2023 Start: 04-06-2023 [facility] Start: 04-06-2023 [facility] Start: 04-06-2023 Referral to oncologist [facility] Start: 04-06-2023 [facility] Start: 04-06-2023 [facility] Start: 04-05-2023 Referral to crating and moving estimator [facility] Start: 04-05-[address] [facility] Start: 04-05-2023 [facility] Start: 04-05-2023 End: 06-05-2023 CBC W Auto Differential panel - Blood CBC + DIFF Lab Routine Rectal cancer (HCC) Expected: 04/05/2023 (Approximate), Expires: 06/05/2023 [facility] Work Phone: Comment on above: Expected: 04/05/2023 (Approximate), Expi res: 06/05/2023 Start: 04-05-2023 End: 06-05-2023 Comprehensive metabolic 2000 panel - Serum or Plasma COMP METABOLIC PANEL Lab Routine Rectal cancer (HCC) Expected: 04/05/2023 (Approximate), Expires: 06/05/2023 [facility] Work Phone: Comment on above: Expected: 04/05/2023 (Approximate), Expi res: 06/05/2023 Start: 03-10-2023 Covid-19 Vaccine ( season) Covid-19 Vaccine ( season) [facility] Start: 03-10-2023 Covid-19 Vaccine ( season) Covid-19 Vaccine () [facility] Start: 03-10-2023 Influenza vaccination [facility] Start: 03-06-2023 [facility] Start: 07-10-2022 ADVANCE DIRECTIVE DISCUSSION ADVANCE DIRECTIVE DISCUSSION [facility] Start: 07-10-2022 DEPRESSION ASSESSMENT DEPRESSION ASSESSMENT [facility] Start: 11-25-2020 COVID-19 VACCINE (3 - Moderna series) COVID-19 VACCINE (3 - Moderna series) [facility] Start: 10-28-2020 Covid-19 Vaccine (3 - Moderna risk series) Covid-19 Vaccine (3 - Moderna risk series) [facility] Start: 09-22-2019 Screening for malignant neoplasm of breast [facility] Start: 09-07-2018 Medicare Annual Wellness Visit Medicare Annual Wellness Visit [facility] Start: 2018 BONE DENSITY BONE DENSITY [facility] Start: 2018 Bone Density Screening Bone Density Screening [facility] Start: 2018 Pneumococcal Vaccine: 65+ (2 - PCV) Pneumococcal Vaccine: 65+ (2 - PCV) [facility] Start: 2018 Pneumococcal Vaccine: 65+ Years (2 - PCV) Pneumococcal Vaccine: 65+ Years (2 - PCV) [facility] Start: 2018 Pneumococcal Vaccine: 65+ Years (2 of 2 - PCV) Pneumococcal Vaccine: 65+ Years (2 of 2 - PCV) [facility] Start: 2018 PNEUMOCOCCAL: 65+ (1 - PCV) PNEUMOCOCCAL: 65+ (1 - PCV) [facility] Start: 2018 PNEUMOCOCCAL: 65+ (2 - PCV) PNEUMOCOCCAL: 65+ (2 - PCV) [facility] Start: 2018 Screening for osteoporosis Bone Density Screening [facility] Start: 04-09-2016 Pneumococcal Vaccine: 50+ (2 of 2 - PCV) Pneumococcal Vaccine: 50+ (2 of 2 - PCV) [facility] Start: 04-09-2016 Pneumococcal Vaccine: 65+ (3 - PCV) Pneumococcal Vaccine: 65+ (3 - PCV) [facility] Start: 04-09-2016 Pneumococcal Vaccine: 65+ (3 of 3 - PCV) Pneumococcal Vaccine: 65+ (3 of 3 - PCV) [facility] Start: 2013 RSV Vaccine (1 - 1-dose 60+ series) RSV Vaccine (1 - 1-dose 60+ series) [facility] Start: 2013 RSV Vaccine (1 - Risk 60-74 years 1-dose series) RSV Vaccine (1 - Risk 60-74 years 1-dose series) [facility] Start: 2003 SHINGRIX VACCINE (1 of 2) SHINGRIX VACCINE (1 of 2) [facility] Start: 1998 COLOGUARD (FIT-DNA) COLOGUARD (FIT-DNA) [facility] Start: 1998 Colonoscopy COLONOSCOPY [facility] Start: 1998 COLORECTAL CANCER SCREENING COLORECTAL CANCER SCREENING [facility] Start: [address] COLONOGRAPHY [facility] Start: 1998 DIABETES SCREEN DIABETES SCREEN [facility] Start: 1998 Diabetes Screening Diabetes Screening [facility] Start: 1998 FECAL OCCULT BLOOD FECAL OCCULT BLOOD [facility] Start: 1998 Lipid 1996 panel - Serum or Plasma Lipid Screening [facility] Start: 1998 Lipid panel Lipid Screening [facility] Start: 1998 LIPID SCREEN LIPID SCREEN [facility] Start: 1998 Screening for malignant neoplasm of colon [facility] Start: 1998 SIGMOIDOSCOPY SIGMOIDOSCOPY [facility] Start: 1993 Mammography [facility] Start: 1993 Screening for malignant neoplasm of breast [facility] Start: 1975 DTaP/Tdap/Td Vaccines (1 - Tdap) DTaP/Tdap/Td Vaccines (1 - Tdap) [facility] Start: 1972 Urine microalbumin profile [facility] Start: 1971 Annual PCP Team Chronic Disease Visit Annual PCP Team Chronic Disease Visit [facility] Start: 1971 BP Controlled (<130/80) BP Controlled (<130/80) [facility] Start: 1971 HEPATITIS C SCREENING HEPATITIS C SCREENING [facility] Start: 1971 Hepatitis C screening Hepatitis C Screening [facility] Start: 1964 Screening for malignant neoplasm of cervix Cervical Cancer Screening [facility] Start: 02-21-1954 COVID-19 VACCINE (#1) COVID-19 VACCINE (#1) [facility] Start: 1953 Lipid panel Lipid Panel [facility] Start: 1953 Medicare Annual Wellness Visit Medicare Annual Wellness Visit (AWV) [facility] Start: 1953 Screening for malignant neoplasm of colon [facility] Anion gap measurement [facility] Bacteria identified in Unspecified specimen by Aerobe culture [facility] Bacteria identified in Unspecified specimen by Anaerobe culture [facility] Bacteria identified in Urine by Culture URINE CULTURE Microbiology Routine Dysuria 05/01/2023 11:19 AM EDT [facility] Work Phone: Basophils [#/volume] in Blood by Automated count [facility] Basophils/100 leukoc ytes in Blood by Automated count [facility] Carcinoembryonic Ag [Mass/volume] in Serum or Plasma CEA BLD Lab Routine History of rectal cancer 10/10/2023 11:40 AM EDT [facility] Work Phone: Carcinoembryonic Ag [Mass/volume] in Serum or Plasma CARCINOEMBRYONIC ANTIGEN Lab Routine History of rectal cancer Rectal cancer (HCC) 02/10/2025 12:42 PM EDT [facility] Closure enterostomy lg/small intestine CLOSURE ILEOSTOMY Attention to ileostomy (HCC) Partial small bowel obstruction (HCC) [facility] End: 10-03-2025 CT Abdomen and Pelvis W contrast IV CT ABD/PEL W IVCON Radiology Routine History of rectal cancer Rectal cancer (HCC) 1 Occurrences starting 09/03/2024 until 10/03/2025 [facility] Comment on above: 1 Occurrences starting 09/03/2024 until 10/03/2025 CT Abdomen and Pelvi s W contrast IV CT ABD/PEL W IVCON Radiology Routine History of rectal cancer Rectal cancer (HCC) 02/10/2025 1:51 PM EDT [facility] Work Phone: End: 10-03-2025 CT Chest W contrast IV CT CHEST W IVCON Radiology Routine History of rectal cancer Rectal cancer (HCC) 1 Occurrences starting 09/03/2024 until 10/03/2025 [facility] Comment on above: 1 Occurrences starting 09/03/2024 until 10/03/2025 CT Chest W contrast IV CT CHEST W IVCON Radiology Routine History of rectal cancer Rectal cancer (HCC) 02/10/2025 1:51 PM EDT [facility] CT SIM PLANNING RADI ATION ONCOLOGY CT SIM PLANNING RADIATION ONCOLOGY Radiology Routine Rectal adenocarcinoma (HCC) Ordered: 03/23/2023 [facility] Work Phone: Comment on above: Ordered: 03/23/2023 End: 04-05-2024 EGD DIAGNOSTIC EGD DIAGNOSTIC Endoscopy Routine Dyspepsia 1 Occurrences starting 04/06/2023 until 04/05/2024 [facility] Work Phone: Comment on above: 1 Occurrences starting 04/06/2023 until 04/05/2024 Eosinophils/100 leukocytes in Blood by Automated count [facility] Erythrocyte distribu tion width [Ratio] by Automated count [facility] Erythrocytes [#/volu me] in Blood [facility] Glucose measurement estimated from glycated hemoglobin [facility] Guidance for removal of CV catheter with port from Chest IR PORTOCATH REMOVAL Radiology Routine Rectal adenocarcinoma (HCC) Ordered: 12/14/2023 [facility] Work Phone: Comment on above: Ordered: 12/14/2023 Hematocrit [Volume Fraction] of Blood [facility] Hemoglobin [Mass/vol ume] in Blood [facility] IR PORTOCATH PLACEMENT IR PORTOC ATH PLACEMENT Radiology KARYN Rectal cancer (HCC) Ordered: 04/05/2023 [facility] Work Phone: Comment on above: Ordered: 04/05/2023 Leukocytes [#/volume ] corrected for nucleated erythrocytes in Blood by Automated coun [facility] Leukocytes [#/volume ] in Blood [facility] Lymphocytes [#/volum e] in Blood by Automated count [facility] Lymphocytes/100 leukocytes in Blood by Automated count [facility] MCH [Entitic mass] b y Automated count [facility] MCHC [Mass/volume] b y Automated count [facility] MCV [Entitic volume] by Automated count [facility] Monocytes [#/volume] in Blood by Automated count [facility] Monocytes/100 leukoc ytes in Blood by Automated count [facility] End: 04-05-2024 Mri pelvis w/o & w/contrast material MRI RECTUM WO/W IVCON Radiology Routine Rectal adenocarcinoma (HCC) 1 Occurrences starting 03/07/2023 until 04/05/2024 [facility] Work Phone: Comment on above: 1 Occurrences starting 03/07/2023 until 04/05/2024 Neutrophils [#/volum e] in Blood by Automated count [facility] Neutrophils/100 leukocytes in Blood by Automated count [facility] Nucleated erythrocyt es [Presence] in Blood by Automated count [facility] Patient Education [facility] Work Phone: Patient referral [facility] Work Phone: Platelet mean volume [Entitic volume] in Blood by Automated count [facility] Platelets [#/volume] in Blood [facility] End: 02-20-2026 Screening colonoscopy COLONOSCOPY SCREENING Endoscopy Routine Encounter for follow-up surveillance of rectal cancer 1 Occurrences starting 02/20/2025 until 02/20/2026 [facility] Work Phone: Comment on above: 1 Occurrences starting 02/20/2025 until 02/20/2026 UA DIP B/O UA DIP B/O Lab R outine Dysuria Ordered: 05/01/2023 [facility] Work Phone: Comment on above: Ordered: 05/01/2023 [facility] Immunizations Immunization Date Immunization Notes Care Provider Henry tompkins 08-10-2024 influenza, high dose seasonal, preservative-free Charles Bazzi DO Work Phone: [facility] 08-10-2024 influenza virus vaccine, unspecified formulation Chapincito Anthony PT Work Phone: [facility] 08-08-2021 zoster vaccine recombinant Charles Kuns Other [facility] 02-26-2021 zoster vaccine recombinant Charles Kuns Other [facility] 09-30-2020 COVID-19 Vaccine Moderna - Documentation Purposes Only Caroline Rangel II Other [facility] 09-29-2020 COVID-19 mRNA Bivalent Booster (Moderna) DO Charles Kuns Work Phone: [facility] 09-03-2020 COVID-19 Vaccine Moderna - Documentation Purposes Only Caroline Rangel II Other [facility] 05-07-2019 influenza nasal, unspecified formulation Lab/[place] Work Phone: [facility] 05-07-2019 influenza, injectable, quadrivalent, preservative free DO Charles Kuns Work Phone: [facility] 05-07-2019 influenza, injectable, quadrivalent, contains preservative Caroline [place] II Other [facility] 05-07-2019 influenza virus vaccine, unspecified formulation Colleen Solorio RN Work Phone: [facility] 04-18-2017 influenza, injectable, quadrivalent, preservative free DO Charles Kuns Work Phone: [facility] 04-18-2017 influenza, injectable, quadrivalent, contains preservative Caroline [place] Other [facility] 04-09-2017 influenza, seasonal, injectable Charles R Kuns Work Phone: [facility] Comment on above: Series: 04-09-2015 pneumococcal polysaccharide vaccine, 23 valent Charles R Kuns Work Phone: [facility] Comment on above: Series: 04-09-2014 influenza, injectable, madin claire canine kidney, preservative free Charles R Kuns Work Phone: [facility] 04-09-2014 influenza, seasonal, injectable, preservative free JOSE MARIA Hudson MD Work Phone: [facility] 04-09-2014 pneumococcal polysaccharide vaccine, 23 valent Charles Bazzi Work Phone: [facility] 11-04-2013 zoster vaccine, live Caroline [place] II Other [facility] 07-25-2013 pneumococcal polysaccharide vaccine, 23 valent Caroline [place] II Other [facility] 07-13-2013 influenza virus vaccine, unspecified formulation DO Charles Bazzi Work Phone: [facility] 07-13-2013 influenza virus vaccine, split virus (incl. purified surface antigen) Caroline Rangel II Other [facility] NEGATED: Highlighted row has not occurred! 9 influenza, seasonal, injectable Patient Objection Caroline Rangel II Other [facility] Other Payers Date Payer Category Payer Self-pay [id number] 2021 Private Health Insurance MMO MEDICARE SUPPLEMENT [id number] 2021 Unknown [id number] 2018 Medicare [id number] 1959 Medicare [id number] 2.16.840.1.394102.19 1959 Unknown [id number] 1953 Unknown [id number] 2.16.840.1.752743.3.579.2. 593 1953 Unknown [id number] 2.16.840.1.651326.3.579.2. 593 1953 Unknown [id number] 2.16.840.1.142359.3.579.2. 593 1953 Unknown [id number] 2.16.840.1.251443.3.579.2. 356 1953 Unknown [id number] 2.16.840.1.879990.3.579.2. 356 1953 Unknown [id number] 2.16.840.1.525893.3.579.2. 356 1953 Unknown [id number] 2.16.840.1.846427.3.579.2. 1244 1953 Unknown [id number] 2.16.840.1.923880.3.579.2. 1259 1953 Unknown [id number] 2.16.840.1.797795.3.579.2. 1259 1953 Unknown [id number] 2.16.840.1.763389.3.579.2. 1259 1953 Unknown [id number] 2.16.840.1.977279.3.579.2. 1259 1953 Unknown [id number] 2.16.840.1.558185.3.579.2. 1259 1953 Unknown [id number] 2.16.840.1.414800.3.579.2. 1259 1953 Unknown [id number] 2.16.840.1.962420.3.579.2. 1259 1953 Unknown [id number] 2.16.840.1.074096.3.579.2. 9 1953 Unknown [id number] 2.16.840.1.986071.3.579.2. 1259 1953 Unknown [id number] 2.16.840.1.973885.3.579.2. 1258 1953 Unknown [id number] 2.16.840.1.780882.3.579.2. 1259 1953 Unknown [id number] 2.16.840.1.471326.3.579.2. 1258 1953 Unknown [id number] 2.16.840.1.466869.3.579.2. 1258 1953 Unknown [id number] 2.16.840.1.297349.3.579.2. 196 1953 Unknown [id number] 2.16.840.1.608255.3.579.2. 196 1953 Unknown [id number] 2.16.840.1.704343.3.579.2. 196 1953 Unknown [id number] 2.16.840.1.977515.3.579.2. 196 1953 Unknown [id number] 2.16840.1.823504.3.579.2. 196 1953 Unknown [id number] 2.16.840.1.872831.3.579.2. 196 Medicare [place] MediBlue Dual Adv VOC [id number] Unknown [employer] [id number] Unknown [id number] 2.16.840.1.446082.3.579.2. 531 Unknown [id number] 2.16.840.1.900021.3.579.2. 531 Unknown [id number] 2.16.840.1.070795.3.579.2. 531 Unknown [id number] 2.16.840.1.983907.3.579.2. 531 Unknown [id number] 2.16.840.1.967878.3.579.2. 531 Unknown [id number] 2.16.840.1.120885.3.579.2. 531 Unknown [id number] 2.16.840.1.157200.3.579.2. 531 Unknown [id number] 2.16.840.1.423967.3.579.2. 531 Unknown [id number] 2.16.840.1.291777.3.579.2. 531 Unknown [id number] 2.16.840.1.110346.3.579.2. 531 Social History Date Type Detail Facility Start: 03-08-2023 End: 11-09-2023 Sex Assigned At [facility] Start: 06-02-2021 End: 03-08-2023 Tobacco smoking status NHIS Never smoked tobacco (finding) [facility] Start: 1955 Sex Assigned At Female F [facility] Start: 03-08-2023 End: 11-09-2023 Occasional alcohol use Occasional alcohol use [facility] ic Tobacco smoking stat us NHIS Tobacco smoking consumption unknown [facility] Start: 1955 Sex Assigned At Not on file C [facility] History of tobacco use Passive smoker [facility] Start: 01-17-2023 End: 03-08-2023 Tobacco use and exposure Smokeless tobacco non-user [facility] Start: 03-08-2023 End: 02-21-2025 Alcohol intake Current drinker of alcohol (finding) [facility] Start: 03-08-2023 Alcohol Comment socially [facility] Start: 06-10-2012 Adult Depression Screening Assessment 0 [facility] Start: 03-14-2023 Alcohol Comment 1 drink weekly if th at [facility] Start: 04-18-2023 Alcohol Comment socially a cou ple times per month [facility] Start: 07-20-2023 Alcohol Comment occasional [facility] Work Phone: Start: 07-15-2023 End: 07-25-2023 Exposure to SARS-CoV-2 (event) Not sure [facility] Start: 08-11-2023 Alcohol Comment 2 times a month if t hat [facility] (I/We) worried wheth er (my/our) food would run out before (I/we) got money to buy more. DK or Refused [facility] Start: 09-22-2023 End: 10-10-2023 Alcohol intake Ex-drinker (finding) [facility] Has the [employer], or water [employer] threatened to shut off services in your home in past 12Mo No [facility] (I/We) worried wheth er (my/our) food would run out before (I/we) got money to buy more. Never true [facility] Start: 05-22-2024 End: 10-19-2024 Sex Female (finding) [facility] How often to you hav e [...] with subcutaneous port for chemotherapy Vascular port/catheter ()[id number] FDA Start: 06-26-2023 Fusion of distal interphalangeal joint of finger Orthopaedic bone screw, non-bioabsorbable, non-sterile ()[id number] FDA Start: 08-26-2024 TVTO OBTURATOR SYSTEM FDA Start: 11-09-2018 TVTO [...] Facility 10-28-2023 Functional status Patient at [facility] Work Phone: 10-01-2023 Functional status Patient at [facility] Work Phone: 09-04-2023 Are you deaf, or do you have serious difficulty hearing No 09/04/2023 3:54 PM Rebecca Cano, KAYA No [facility] 09-04-2023 Are you blind, or do you have serious difficulty seeing, even when wearing glasses No 09/04/2023 3:54 PM Rebecca Cano, RN No [facility] 09-04-2023 Do you have serious difficulty walking or climbing stairs No 09/04/2023 3:54 PM Rebecca Cano, KAYA No [facility] 09-04-2023 Do you have difficul ty dressing or bathing No 09/04/2023 3:54 PM Rebecca Cano, KAYA No [facility] 09-04-2023 Because of a physica l, mental, or emotional condition, do you have difficulty doing errands alone such as visiting a physician's office or shopping No 09/04/2023 3:54 PM Rebecca Cnao, KAYA No [facility] 04-06-2023 Functional status Patient at [facility] Work Phone: Mental Status Date Assessment Result Facility 10-28-2023 Cognitive function Cognitive Sta tus Patient at Baseline [facility] Work Phone: 10-01-2023 Cognitive function Cognitive Sta tus Patient at [facility] Work Phone: 09-04-2023 Because of a physica l, mental, or emotional condition, do you have serious difficulty concentrating, remembering, or making decisions No 09/04/2023 3:54 PM Rebecca Cano, KAYA No [facility] 04-06-2023 Cognitive function Cognitive Sta tus Patient at [facility] Work Phone: Clinical Notes 02-11-2022 to 02-20-2025 Patient InstructionsTapan Corona MD - 02/20/2025 2:12 PM Cierra Lincoln RN - 02/20/2025 1:47 PM Liasha Zamudio MD - 02/20/2025 1:20 PM Chapincito Hammond PT - 02/19/2025 6:03 PM EDT Note Date & Type Note Facility 02-20-2025 Instructions Camilla Cortés LPN - 02/20/2025 2:20 PM EDT F/U with Dr. Corona 08/23/25, labs 1 week prior documented in this encounter [facility] 02-20-2025 Note HNO ID: [id number] Author: TAPAN CORONA MD Service: ? Author Type: Physician Type: Progress Notes Filed: 02/20/2025 14:27 Note Text: PATIENT NAME: Evan Gill CLINIC NO.: [id number] ATTENDING PHYSICIAN: Tapan Corona MD DATE OF SERVICE: February 20, 2025 Some of the elements of this note have been copied from my previous progress note dated 09/03/2024. All the information has been reviewed carefully. Dear Dr. Bazzi here is an update on a follow up visit on female Evan Gill at the clinic February 20, 2025 Diagnosis: [...] 10/2023, 01/2024, 08/2024- Negative. 02/2025- Pending HPI: Evan Gill is a 69 year old year old [...] 2.6 oz (66.3kg) SpO2 99% BMI 25.08 kg/(m2). Wt 61.8 kg (136 lb 3.2 [...] - 15.5 g/dL Final Hematocrit Date Value (more content not included)... [facility] 02-20-2025 History of Presen t illness Narrative Images from the original note were not included. PATIENT NAME: Evan Gill CLINIC NO.: [id number] ATTENDING PHYSICIAN: Tapan Corona MD DATE OF SERVICE: February 20, 2025 Some of the elements of this note have been copied from my previous progress note dated 09/03/2024. All the information has been reviewed carefully. Dear Dr. Bazzi here is an update on a follow up visit on female Evan Gill at the clinic February 20, 2025 Diagnosis: [...] 10/2023, 01/2024, 08/2024- Negative. 02/2025- Pending HPI: Evan Gill is a 69 year old year old [...] Range Status 02/10/2025 8.4 % Final Abs [place] Date Value Ref Range Status 02/10/2025 0.51 [...] right lower quadrant ileostomy. Assessment and Plan: vEan Gill is a 69 year old year old [...] CR. Signatera 10/2023 and 01/2024 and 08/2024 were negative. 02/[address] 02/2025 without recurrence See back in 6 months and will repeat Signatera and labs and also CT Colonoscopy scheduled 03/13/2025 Thank you for the kind referral. If there are any questions and or concerns please do not hesitate to contact me at [phone]. Tapan Corona MD Hematology/Medical Oncology [facility] Ghassan Giordano spent a total of 30 minutes on the date of the service which included preparing to see the patient, [id number] patient care, completing clinical documentation, obtaining and/or reviewing separately obtained history, performing a medically appropriate examination, counseling and educating the patient/family/caregiver, and ordering medications, tests, or procedures. CC: documented in this encounter [facility] 02-20-2025 Note HNO ID: [id number] Author: CEIRRA LINDQUIST RN Service: ? Author Type: Registered Nurse Type: Progress Notes Filed: 02/20/2025 13:48 Note Text: AMBULATORY PATIENT EDUCATION NOTE DIAGNOSIS: history of [...] number for further concerns and for questions. [phone] TIME SPENT: 15 minutes Electronically Signed By: SHANDRA Peterson, KAYA [facility] Specialty Professional Nursing Tutor [facility] 02-20-2025 History of Presen t illness Narrative AMBULATORY PATIENT EDUCATION NOTE DIAGNOSIS: history of [...] number for further concerns and for questions. [phone] TIME SPENT: 15 minutes Electronically Signed By: SHANDRA Peterson RN 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 Abdomen: soft ND NT incisions well healed no hernia Assessment Assessment and Plan: Evan Gill is a 69 year old female who [...] to be ordered: colonoscopy I have discussed Evan Gill's treatment plan and/or results with the patient, will discuss with Dr. Corona. I spent a total of 40 minutes on the date of the service which included preparing to see the patient, [id number] patient care, completing clinical documentation, obtaining and/or reviewing separately obtained history, performing a medically appropriate examination, counseling and educating the patient/family/caregiver, ordering medications, tests, or procedures, communicating with other HCPs (not separately reported), independently interpreting results (not separately reported), communicating results to the patient/family/caregiver, and care coordination (not separately reported). Laisha Singer MD Colorectal Surgery ' documented in this encounter [facility] 02-20-2025 Note HNO ID: [id number] Author: LAISHA SINGER MD Service: ? 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 General Appearance: Well appearing, alert, in no acute distress, well-hydrated, well nourished. Abdomen: soft ND NT incisions well healed no hernia Assessment Assessment and Plan: Evan Gill is a 69 year old female who [...] PT Medical Decision Making: Data Reviewed: Tests AND Documents Reviewed/ordered: Review of prior notes from [facility], med onc, GI Review of prior operative reports Review of Pathology Review of Imaging: CT Abdomen, CT Pelvis, CT Chest Review of Labs: CEA Review of Procedures / Tests: Colonoscopy, manometry Additional testing or imaging to be ordered: colonoscopy I have discussed Evan Gill's treatm (more content not included)... [facility] 02-20-2025 Note Education ([facility]) EVAN GILL ([id number]) 1955 F Date Time Provider Department 02/20/25 CIERRA LINDQUIST [facility] Reason for Visit: history of colon cancer [Other] During your visit today, we recorded the following information about you: Allergies As of Date: 02/20/2025 (No Known Allergies) Date Reviewed: 02/20/2025 Reviewed by: Maureen Webster [facility] - Fully Assessed Prescriptions as of 02/20/2025 - LEXAPRO 10 mg tablet - meloxicam (MOBIC) 15 mg tablet Take 15 mg by mouth once daily. - ondansetron orally disintegrating (ZOFRAN ODT) 8 mg disintegrating tablet Take 1 tablet by mouth every 8 hours as needed for nausea/vomiting. - omeprazole (PRILOSEC) 40 mg capsule Take 40 mg by mouth once daily. - oxybutynin ER (DITROPAN XL) 15 mg 24 hr Extended Rel Tab Take 15 mg by mouth. - aspirin, enteric coated (ASPIRIN, ENTERIC COATED) 81 mg EC tablet Take 81 mg by mouth once daily. Encounter Status:Closed by CIERRA LINDQUIST on 02/20/25 [facility] 02-19-2025 Note HNO ID: [id number] Author: CHAPINCITO ANTHONY PT Service: ? Author Type: Physical Therapist Type: Progress Notes Filed: 02/19/2025 18:12 Note Text: Episode Visit Count: 2 Therapist That Will Accept/Oversee The Plan Of Care: Raj Start of Care Date: 01/28/25 Plan of Care Certification Date: 01/28/25 Next Certification Due Date: 04/23/25 Patient Identified by Name and Date of : Yes REHABILITATION AND SPORTS THERAPY PHYSICAL THERAPY TREATMENT NOTE ASSESSMENT: Evan Gill tolerated the session with pain and tightness in her L hip and continued tightness R side rectally> L. Symptoms are better [...] Bowel Movement Frequency: 2-3 Bowel Movement Consistency ([place]) : 4: Like a sausage or snake, [...] and girdle muscle assessment externally or internally (vaginal or rectal approach). (rectal) Contracton Pressure: Moderate squeeze, felt all the way around finger surface Duration of Contraction: >3 seconds Recruitment of pelvic floor muscles: Uncoordinated Range of Motion: Decreased Ability to Lengthen pelvic floor: (improved some ; R side tighter and more painful and did not move as much) Relaxation Postcontraction: Partial Diaphragmatic Breathing : [...] some of her symptoms ; discussed emptying again and shifting side- side since R side tighter Skilled Intervention: Correct performance of home program was facilitated with verbal and tactile cueing. Billing Manual TherapyTreatment Minutes: 45 Self-Care/Home Management Treatment Minutes: 6 Total Session Time (minutes): 50 Session Start Time : 1305 Session Stop Time : 1355 Chapincito Anthony PT [facility] 02-19-2025 History of Presen t illness Narrative Episode Visit Count: 2 Therapist That Will Accept/Oversee The Plan Of Care: Raj Start of Care Date: 01/28/25 Plan of Care Certification Date: 01/28/25 Next Certification Due Date: 04/23/25 Patient Identified by Name and Date of : Yes REHABILITATION AND SPORTS THERAPY PHYSICAL THERAPY TREATMENT NOTE ASSESSMENT: Evan Gill tolerated the session with pain and tightness in her L hip and continued tightness R side rectally> L. Symptoms are better [...] Bowel Movement Frequency: 2-3 Bowel Movement Consistency ([place]) : 4: Like a sausage or snake, [...] and girdle muscle assessment externally or internally (vaginal or rectal approach). (rectal) Contracton Pressure: Moderate squeeze, felt all the way around finger surface Duration of Contraction: >3 seconds Recruitment of pelvic floor muscles: Uncoordinated Range of Motion: Decreased Ability to Lengthen pelvic floor: (improved some ; R side tighter and more painful and did not move as much) Relaxation Postcontraction: Partial Diaphragmatic Breathing : [...] some of her symptoms ; discussed emptying again and shifting side- side since R side tighter Skilled Intervention: Correct performance of home program was facilitated with verbal and tactile cueing. Billing Manual TherapyTreatment Minutes: 45 Self-Care/Home Management Treatment Minutes: 6 Total Session Time (minutes): 50 Session Start Time : 1305 Session Stop Time : 1355 Chapincito Anthony PT documented in this encounter [facility] 02-10-2025 History of Presen t illness Narrative Radiology Service Progress Note DATE OF SERVICE: [...] Assigned female at . status: : No status: NO. ALLERGIES: Reviewed and unchanged CONTRAST ALLERGY: No [...] eGFR may not accurately reflect actual GFR. P.O.C.T. RESULTS: POC done: Yes, See Lab Tab February 10, 2025 TREATMENT: N/A IV SITE: Ambulatory: A peripheral IV was started in the Right antecubital site with a Angio cath: 20 gauge. IV SITE APPEARANCE: Clean,Dry and Intact SIGNATURE: Jen Watson RN PATIENT NAME: Evan Gill DATE: February 10, 2025 TIME: 1:02 PM Radiology Service Progress Note PATIENT NAME: Evan Gill DATE OF SERVICE: February 10, 2025 TIME: [...] Assigned female at . status: : No status: NO. PATIENT RELEVANT IMPLANT DATA REVIEWED: Not Applicable PATIENT PRESENTS WITH AN IMPLANTABLE OR ATTACHED VISITOR SERVICES REPRESENTATIVE: No RADIOLOGY DEPARTMENT: CT; Exam(s) Completed: Chest Abdomen Pelvis PERIPHERAL IV DATA: Site assessment: Clean,Dry and Intact, Site disposition Discontinued SIGNED BY: RT Jovanni(R) February 10, 2025 1:35 PM documented in this encounter [facility] 02-10-2025 Note HNO ID: [id number] Author: KAMILA MALDONADO RT(Raphael) Service: ? Author Type: Technologist Type: Progress Notes Filed: 02/10/2025 13:36 Note Text: Radiology Service Progress Note PATIENT NAME: Evan Gill DATE OF SERVICE: February 10, 2025 TIME: [...] Assigned female at . status: : No status: NO. PATIENT RELEVANT IMPLANT DATA REVIEWED: Not Applicable PATIENT PRESENTS WITH AN IMPLANTABLE OR ATTACHED VISITOR SERVICES REPRESENTATIVE: No RADIOLOGY DEPARTMENT: CT; Exam(s) Completed: Chest Abdomen Pelvis PERIPHERAL IV DATA: Site assessment: Clean,Dry and Intact, Site disposition Discontinued SIGNED BY: RT Jovanni(R) February 10, 2025 1:35 PM [facility] 02-10-2025 Note HNO ID: [id number] Author: JEN WATSON RN Service: ? Author Type: Registered Nurse Type: Progress Notes Filed: 02/10/2025 13:02 Note Text: Radiology Service Progress Note DATE [...] Assigned female at . status: : No status: NO. ALLERGIES: Reviewed and unchanged CONTRAST ALLERGY: No EXAM: CT -CONTRAST INDUCED NEPHROPATHY RISK FACTORS: Patient age > 60 years CREATININE: Creatinine Date Value Ref Range Status 08/19/2024 0.74 0.58 - 0.96 mg/dL Final 05/08/2024 0.69 0.58 - 0.96 mg/dL Final 02/06/2024 0.75 0.58 - 0.96 mg/dL Final Estimated Glomerular Filtration Rate Date Value Ref Range Status 08/19/2024 87 >=60 mL/min/1.73m? Final Comment: Estimated Glomerular Filtration Rate (eGFR) is calculated using the 2020 CKD-EPI creatinine equation. This equation utilizes serum creatinine, sex, and age as parameters. The creatinine assay has traceable calibration to isotope dilution-mass spectrometry. Refer to KDIGO guidelines for clinical interpretation. In patients with unstable renal function, e.g. those with acute kidney injury, the eGFR may not accurately reflect actual GFR. P.O.C.T. RESULTS: POC done: Yes, See Lab Tab February 10, 2025 TREATMENT: N/A IV SITE: Ambulatory: A peripheral IV was started in the Right antecubital site with a Angio cath: 20 gauge. IV SITE APPEARANCE: Clean,Dry and Intact SIGNATURE: Jen Watson RN PATIENT NAME: Evan Gill DATE: February 10, 2025 TIME: 1:02 PM [facility] 01-29-2025 Note HNO ID: [id number] Author: CHAPINCITO ANTHONY, JACQUELIN Service: ? Author Type: Physical Therapist Type: Progress Notes Filed: 01/29/2025 12:32 Note Text: Episode Visit Count: 1 Therapist That Will Accept/Oversee The Plan Of Care: Raj Start of Care Date: 01/28/25 Plan of Care Certification Date: 01/28/25 Next Certification Due Date: 04/23/25 Patient Identified by Name and Date of : Yes REHABILITATION AND SPORTS THERAPY PHYSICAL THERAPY EVALUATION PLAN OF CARE: Assessment: Evan Gill presents with chief complaint of fecal urge and weekly FI since last surgery to re-connect her bowels last year; several BM at a time and not feeling empty in between, that interferes with bowel function . The patient presents with impairments in coordination, flexibility, independence in exercise, strength, symptom management, tissue tenderness, and deep breathing and PFM dynamics . PROMIS? (Patient-Reported Outcomes Measurement Information System) scores were [...] max holds; able to lengthen at will 90 % of the time -BM 1-2 per day [...] Planned: 6 Planned Treatment Interventions: Therapeutic exercise (58387), Neuromuscular re-education (85764), Manual therapy (34489), Self-penitentiary management (17491), Patient/Family/Caregiver Education PLAN FOR NEXT VISIT: progress HEP; hips and spine; PFM dynamics - try sitting, other positions to help her achieve better control Patient demonstrates good understanding of plan of care and treatment. The above goals and plan of care were discussed and agreed upon by patient/family. SUBJECTIVE: rectal cancer diagnosed in 2022- surgery and chemo - surgery was 08/25 - they removed some of large intestine and rectum- had colostomy , several SBO - 3 x - reversed the resection/ colostomy- in November 07; - now she has clusters of Fecal urge and going often - has lack of control often , taking Immodium to slow it down - she started taking another medication which slows the stool- and is doing better. stool is firmer now and urge is less ( semiglutide); much better . had been gaining weight and is now getting better since she can eat veggies vs just carbs which slowed her stool - but still she is afraid to eat salads. 1x week FI now .- but her issue is with the cluster of going several times in one hour keeps her home or afraid to go out , unsure when this will happen but almost always triggered by eating Patient Goals: less clustering of BM- 3-4 over an hour or so and may leak some between ; less FI Functional Limitations: bowel function Prior Level of Function: Independent without limitations Relevant History Past Relevant Medical Conditions: Cancer, Hypertension, Anxiety Employment: Retired Recreation / Current Exercise: walks a mile - with dog Home Environment Patient Lives With: Spouse Intake Information: Prescription present Previous Treatment: Surgery Falls Interview: No positive findings with falls interview Pain: Pain Pain Location: Knee - Left (L knee- may have this replaced but not for awhile- the injections help 90 % for 3 months time ; ablation was not much better) Post Treatment Pain Post Treatment Pain Level: Better PROMIS Scales 01/21/2025 Higher is Better Self-Eff Symptom - T Score 40 (Average) Self-Eff Symptom - Percentile 16 01/21/2025 Lower is Better Pain Interference - T Score 40 (within normal limits) Pain Interference - Percentile 84 T-Score and Percentile Interpretation T-scores: mean of general population = 50. 5 points is clinically meaningfully difference Percentiles provide an indication of how the patient's score ranks in relation to the general population. Higher percentile rankings indicate better function/quality of life. 50th percentile is the average of the general population and indicates half of respondents had a worse score. OBJECTIVE MEASURES WITH LEVEL OF FUNCTION: Pelvic Floor Urinary/Bowel History : Urinary History, Bowel History Difficulty starting stream: (trouble getting UTIs) Stress Incontinence: No Nocturia (times per night) : urine 2-3 (more content not included)... [facility] 01-29-2025 History of Presen t illness Narrative Episode Visit Count: 1 Therapist That Will Accept/Oversee The Plan Of Care: Raj Start of Care Date: 01/28/25 Plan of Care Certification Date: 01/28/25 Next Certification Due Date: 04/23/25 Patient Identified by Name and Date of : Yes RE[facility]ABIL[facility]ATION AND SPORTS THERAPY PHYSICAL THERAPY EVALUATION PLAN OF CARE: Assessment: Evan Gill presents with chief complaint of fecal urge and weekly FI since last surgery to re-connect her bowels last year; several BM at a time and not feeling empty in between, that interferes with bowel function . The patient presents with impairments in coordination, flexibility, independence in exercise, strength, symptom management, tissue tenderness, and deep breathing and PFM dynamics . PROMIS (Patient-Reported Outcomes Measurement Information System) scores were [...] max holds; able to lengthen at will 90 % of the time -BM 1-2 per day [...] Planned: 6 Planned Treatment Interventions: Therapeutic exercise (54285), Neuromuscular re-education (47744), Manual therapy (93229), Self-penitentiary management (35586), Patient/Family/Caregiver Education PLAN FOR NEXT VISIT: progress HEP; hips and spine; PFM dynamics - try sitting, other positions to help her achieve better control Patient demonstrates good understanding of plan of care and treatment. The above goals and plan of care were discussed and agreed upon by patient/family. SUBJECTIVE: rectal cancer diagnosed in 2022- surgery and chemo - surgery was 08/25 - they removed some of large intestine and rectum- had colostomy , several SBO - 3 x - reversed the resection/ colostomy- in November 07; - now she has clusters of Fecal urge and going often - has lack of control often , taking Immodium to slow it down - she started taking another medication which slows the stool- and is doing better. stool is firmer now and urge is less ( semiglutide); much better . had been gaining weight and is now getting better since she can eat veggies vs just carbs which slowed her stool - but still she is afraid to eat salads. 1x week FI now .- but her issue is with the cluster of going several times in one hour keeps her home or afraid to go out , unsure when this will happen but almost always triggered by eating Patient Goals: less clustering of BM- 3-4 over an hour or so and may leak some between ; less FI Functional Limitations: bowel function Prior Level of Function: Independent without limitations Relevant History Past Relevant Medical Conditions: Cancer, Hypertension, Anxiety Employment: Retired Recreation / Current Exercise: walks a mile - with dog Home Environment Patient Lives With: Spouse Intake Information: Prescription present Previous Treatment: Surgery Falls Interview: No positive findings with falls interview Pain: Pain Pain Location: Knee - Left (L knee- may have this replaced but not for awhile- the injections help 90 % for 3 months time ; ablation was not much better) Post Treatment Pain Post Treatment Pain Level: Better PROMIS Scales 01/21/2025 Higher is Better Self-Eff Symptom - T Score 40 (Average) Self-Eff Symptom - Percentile 16 01/21/2025 Lower is Better Pain Interference - T Score 40 (within normal limits) Pain Interference - Percentile 84 T-Score and Percentile Interpretation T-scores: mean of general population = 50. 5 points is clinically meaningfully difference Percentiles provide an indication of how the patient's score ranks in relation to the general population. Higher percentile rankings indicate better function/quality of life. 50th percentile is the average of the general population and indicates half of respondents had a worse score. OBJECTIVE MEASURES WITH LEVEL OF FUNCTION: Pelvic Floor Urinary/Bowel History : Urinary History, Bowel History Difficulty starting stream: (trouble getting UTIs) Stress Incontinence: No Nocturia (times per night) : urine 2-3 Difficulty evacuating / Excessive Straining: (15 min eating would get FI and urge prior) Incomplete emptying: Sometimes Fecal incontinence: Yes Gas: Once per week Liquid stool: Once per week Solid stool: Never Smearing/Staining: Never Daily Dietary Fiber/ Food Intake: medication; rare immodium (metamucil- drinking this) Bowel Aides / Supplements: avoids some veggies Pelvic Floor Muscle Assessment Consent for pelvic assessment/testing and treatment: Patient verbalized consent for the above treatment approaches today. Patient understands they have control of the treatment and an opportunity to stop treatment at any time., Patient was educated regarding pelvic floor physical therapy assessment/treatment which may include pelvic floor and girdle muscle assessment externally or internally (vaginal or rectal approach). (rectal and external) Pelvic Floor Muscle Assessment: Muscle Dynamics, PERFECT Power: (not consistent ; 3+/5 highest ; sometimes squeezes and lifts other times just squeezes; can also push when asked to lift , and at times does all of the above with one expiration) Endurance: (not consistent) Contracton Pressure: Moderate squeeze, felt all the way around finger surface (but varies) Duration of Contraction: >3 seconds Recruitment of pelvic floor muscles: Uncoordinated Range of Motion: Decreased Ability to Lengthen pelvic floor: Inconsistently Relaxation Postcontraction: Partial, Delayed Paradoxical Contraction: Intermittent Involuntary Contraction: No Breathing Pattern : (pulls up; minimal into PFM naturally; can do this forced not well yet but did improve by end of session) Diaphragmatic Breathing : Fair Pelvic Floor Manual Assessment External Pelvic Region Tenderness/ Hyperactivity - Trunk: Suprapubic, Rectus abdominus Suprapubic: (B tight not pain) Rectus abdominus: (tight not pain) Pelvic Floor Tenderness/Hyperactivity: Tested Rectally in Tested Rectally in : Sidelying Levator Ani: Bilateral Pubococcygeus: Bilateral (moderate pain and tightness; R>L) Puborectalis: Bilateral (moderate) Anterior pelvic floor: Bilateral Education: Education Learning Preferences: Demonstration, Explanation, Performance Barriers: None Learning/educational needs: Home exercise program, Plan of Care Education Provided: Yes, see treatment interventions for education provided Education Provided To: Patient Education Mode/Type: Demonstration, Explanation/Discussion, Literature/Printed Materials Response to Education/Teach Back: States/Identifies, Return Demonstration, Requires Review/Additional Education TREATMENT: PT Treatment Interventions: Therapeutic Exercise, Manual Therapy, Neuromuscular Re-Education, Self-Skilled Nursing Management Evaluation Therapeutic Exercise: 1: SL breathing and hands on to monitor her breathing and PFM movements 2: seated breathing and monitor with fingers at IT / medial to 3: self- massage to tight rectal tissues- perhaps using balls/ roller if she does not want to work internally yet 4: child pose and breathign into the coccyx / PFM; 6 sec breaths in and out- pause at the end to stretch the tight tissues Skilled Intervention: Patient was educated in proper exercise technique and purpose for exercises. Skilled judgment was used in selection of appropriate interventions. Manual Therapy: 1: PFM STM as noted ; breathing Skilled Intervention: Manual skills to improve joint mobility, ROM, and decrease pain. Utilized anatomy knowledge of the clinician, and assessment of patient's response to intervention. Self-Skilled Nursing Management: 1: POC; anatomy and connection to her symptoms ; other ways she could tell if she is lifting vs dropping PFM- mirror etc.; natural healing of her surgery and how nerves regenerate but at times send false messages; personal history of similar surgery and how it was dealt with ; emptying bowels as vital to not leaking and how to help this along Skilled Intervention: Correct performance of home program was facilitated with verbal, visual, and tactile cueing. Billing * Evaluation Moderate Complexity: 1 Unit Therapeutic Exercise Treatment Minutes: 15 Manual TherapyTreatment Minutes: 30 Self-Care/Home Management Treatment Minutes: 15 Total Session Time (minutes): 75 Session Start Time : 1135 Session Stop Time : 1250 [place] Anthony PT documented in this encounter [facility] 01-03-2025 Telephone encounter Note Call placed to patient. 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 She is starting Pelvic Floor PT in January (They had cancelled appts several times with her). She is having clustering of stools, mostly in evening. She feels she is taking too much imodium but still having loose stools and is concerned if this is another problem. She denies liquid stools, cramping, full incontinence, fever, abdominal pain or bloating. She is getting adequate fluids in per day. Stool is soft brown but clustering and needs to stay close to bathroom. She feels this is impacting her life and unable to leave the home. Discussed maximum dose of imodium. She is taking 6- 8 tablets of imodium per day but not taking before meals, only after the meal or event. Discussed a one trial day of no imodium and mild bowel cleanse to ensure no diarrhea overflow is part of her problem. if she is concerned she has taken too much imodium. Reviewed LAR handout, timing of liquids in the day, adding OTC fiber. Discussed when to take Imodium 30 before meals. Reviewed LAR syndrome. She is appreciative of the discussion and has follow up in February with Dr Singer. Advised to contact office anytime if in need of further discussion. [facility] 01-03-2025 Miscellaneous Notes Call placed to patient. 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 She is starting Pelvic Floor PT in January (They had cancelled appts several times with her). She is having clustering of stools, mostly in evening. She feels she is taking too much imodium but still having loose stools and is concerned if this is another problem. She denies liquid stools, cramping, full incontinence, fever, abdominal pain or bloating. She is getting adequate fluids in per day. Stool is soft brown but clustering and needs to stay close to bathroom. She feels this is impacting her life and unable to leave the home. Discussed maximum dose of imodium. She is taking 6- 8 tablets of imodium per day but not taking before meals, only after the meal or event. Discussed a one trial day of no imodium and mild bowel cleanse to ensure no diarrhea overflow is part of her problem. if she is concerned she has taken too much imodium. Reviewed LAR handout, timing of liquids in the day, adding OTC fiber. Discussed when to take Imodium 30 before meals. Reviewed LAR syndrome. She is appreciative of the discussion and has follow up in February with Dr Singer. Advised to contact office anytime if in need of further discussion. documented in this encounter [facility] 11-05-2024 Note HNO ID: [id number] Author: ALE MARIE APRN.CNP Service: ? Author Type: Nurse Practitioner Type: Progress Notes Filed: 11/05/2024 12:50 Note Text: SENSITIVE EXAMINATION CONSENT: The sensitive examination was discussed with the Patient or Patient's Authorized Pricing Clerk. As applicable, any other physician, advance practice provider, medical student, or other health professional student that will be observing or involved in the sensitive examination for educational or training purposes was discussed with the Patient or Authorized Pricing Clerk. The Patient or Authorized Pricing Clerk has agreed to proceed with the sensitive examination. [facility] 11-05-2024 History of Presen t illness Narrative SENSITIVE EXAMINATION CONSENT: The sensitive examination was discussed with the Patient or Patient's Authorized Pricing Clerk. As applicable, any other physician, advance practice provider, medical student, or other health professional student that will be observing or involved in the sensitive examination for educational or training purposes was discussed with the Patient or Authorized Pricing Clerk. The Patient or Authorized Pricing Clerk has agreed to proceed with the sensitive examination. documented in this encounter [facility] 10-31-2024 Note HNO ID: [id number] Author: CIERRA LINDQUIST RN Service: ? Author Type: Registered Nurse Type: Progress Notes Filed: 10/31/2024 09:42 Note Text: AMBULATORY PATIENT EDUCATION NOTE DIAGNOSIS: fecal incontinence/ LARS PROCEDURE PREPARATION INSTRUCTIONS:na READINESS TO LEARN COGNITIVE ABILITY: Alert and oriented MOTIVATION TO LEARN: Eager FAMILY SUPPORT: None - Unavailable/disinterested PHYSICAL LIMITATIONS AFFECTING LEARNING: None METHOD OF INSTRUCTION: Verbal and Written instruction - handouts provided PRE PROCEDURE INSTRUCTIONS REVIEWED: -Anorectal Manometry- call office to schedule [phone] -pelvic floor physical therapy - handout with phone numbers provided to schedule at location of choice -[facility] Direct information Patient acknowledges and understands. They have contact phone number for further concerns and for questions. Electronically Signed By: SHANDRA Peterson, RN DDSI Specialty Professional Nursing Tutor [facility] 10-31-2024 Note HNO ID: [id number] Author: LAISHA SINGER MD Service: ? 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 She has a history of rectal cancer s/p STACY, LAR to pelvic floor with DLI 08/2023 and reversal on 11/08/23. She was last seen in the office on 01/09/24. Prior A/P from 01/09/24: Evan Gill is a 68 year old [...] in 1 year or sooner if needed She now re-presents to discuss her ongoing symptoms. Current concerns: She states that she continues to have episodes of urgency and incontinence about once a day to every other day. When these episodes happen, they last about an hour, where she goes to the bathroom, believes she is done and shortly after has additional urge to go. One the episode finishes, she no longer has any need to have a BM the rest of the day. She states that this happens at random times, and is significantly impacting her life and her confidence to leave the house. She was previously on miralax for constipation, but now has the opposite problem of soft to liquid stools. She is on Imodium and metamucil. She also notes about 20-25 lb weight gain since she has been off of semaglutide. Cannot control flatus? Yes, at least once per week Accidental leakage of liquid stool? Yes, at least once per week How often do you move your bowels? 4-7 times daily Do you every have to move your bowels within 1 hour of another bowel movement? Yes, at least once per week Do you ever have such a strong urge to move your bowels that you have to fowler to the toilet? Yes, at least once per week Colonoscopy on 09/18/[address] Tomi Greene - ascending colon: 2.5 cm polyp removed. 3 clips were placed at the polypectomy site to prevent bleeding then the area on the opposite wall of the polypectomy site was tattooed. View External Procedures - Colonoscopy [ID [id number]] Pathology: Ascending colon polyp: tubular adenoma Scan on 10/16/2024 1:47 PM by Provider, External, PA-C: Pathology PAST MEDICAL HISTORY Diagnosis Date Constipation Diverticulosis [...] that Drug use: Never Physical Exam: BP 138/68 Pulse 74 Ht 162.6 cm (5' 4 ) Wt 74.7 kg (164 lb 10.9 oz) SpO2 99% BMI 28.27 kg/m? General Appearance: Well appearing, alert, in no acute distress, well-hydrated, well nourished. Abdomen: soft ND NT Assessment Assessment and Plan: Evan Gill is a 69 year old female w/ T3cN+ rectal ca s/p STACY, LAR, DLI 08/2023 and subsequent ileostomy closure now w/ LARS refractory to medication. Manometry Pelvic floor PT SNS handout/bowel diary provided Medical Decision Making: Data Reviewed: Tests AND Documents Reviewed/ordered: Review of prior notes from [facility], med onc, GI Review of prior operative reports Review of Pathology Review of Imaging: CT Abdomen, CT (more content not included)... [facility] 10-31-2024 Note Education ([facility]) EVAN GILL ([id number]) 1955 F Date Time Provider Department 10/31/24 CIERRA LINDQUIST [facility] Reason for Visit: Fecal Incontinence [1403] During your visit today, we recorded the following information about you: Allergies As of Date: 10/31/2024 (No Known Allergies) Date Reviewed: 10/31/2024 Reviewed by: Laisha Singer MD - Fully Assessed Prescriptions as of 10/31/2024 - LEXAPRO 10 mg tablet - meloxicam (MOBIC) 15 mg tablet Take 15 mg by mouth once daily. - ondansetron orally disintegrating (ZOFRAN ODT) 8 mg disintegrating tablet Take 1 tablet by mouth every 8 hours as needed for nausea/vomiting. - omeprazole (PRILOSEC) 40 mg capsule Take 40 mg by mouth once daily. - oxybutynin ER (DITROPAN XL) 15 mg 24 hr Extended Rel Tab Take 15 mg by mouth. - aspirin, enteric coated (ASPIRIN, ENTERIC COATED) 81 mg EC tablet Take 81 mg by mouth once daily. Encounter Status:Closed by CIERRA LINDQUIST on 10/31/24 [facility] 10-09-2024 History of Presen t illness Narrative Radiation Oncology - Follow Up Note PATIENT [...] bleeding. No pain. No bladder related issues. She had recent colonoscopy on 09/18/2024 remarkable findings. 08/25/2023 robotic laparoscopic colectomy. Palpable finding mid [...] of this change by e-mail on 09/13/2023. JERanjit 09/13/2023 Comment: Edited results: Previously reported on [...] pT Category pT0 pN Category pN0 . LABORATORY: Latest Reference Range & Units 02/06/24 10:51 05/08/24 13:11 08/19/24 12:54 CEA <=2.9 ng/mL 2.9 2.8 3.5 (H) (H): Data is abnormally high ALLERGIES No Known Allergies MEDICATIONS: LEXAPRO 10 mg tablet meloxicam (MOBIC) 15 [...] Take 81 mg by mouth once daily. REVIEW OF SYSTEMS: Review of Systems: PAIN [...] review of systems is negative. PHYSICAL EXAM: 10/09/24 0907 BP: 164/92 Pulse: 79 Resp: 16 Temp: 36.4 C (97.6 F) SpO2: 98% Weight: 73.5 kg (162 lb 0.6 oz) KPS: 100 General Appearance: Alert and oriented. No acute distress. Rectal: Deferred Musculoskeletal: No edema. Normal ROM in extremities. No bone or spine tenderness. Neuro: Speech fluent. Gait normal. No focal deficits. Skin: No rashes noted Lymphatics: No palpable lymphadenopathy. ASSESSMENT AND PLAN: MRI staged T3c,N+M0- Adenocarcinoma of the mid-low rectum Overall doing well. No significant posttreatment related issues. No further bowel related issues. Recent colonoscopy unremarkable. She has further follow-up with surgery and medical oncology. I will plan to see her back in 6 months for follow-up. Signed by: Del Hudson MD cc: Charles Bazzi, [address] [id number] No referring provider defined for this encounter. documented in this encounter [facility] 10-09-2024 Note HNO ID: [id number] Author: Del HUDSON MD Service: ? Author Type: Physician Type: Progress Notes Filed: 10/18/2024 10:06 Note Text: Radiation Oncology - Follow Up [...] bleeding. No pain. No bladder related issues. She had recent colonoscopy on 09/18/2024 remarkable findings. 08/25/2023 robotic laparoscopic colectomy. Palpable finding mid [...] pT Category pT0 pN Category pN0 . LABORATORY: Latest Reference Range AND Units 02/06/24 10:51 05/08/24 13:11 08/19/24 12:54 CEA <=2.9 ng/mL 2.9 2.8 3.5 (H) (H): Data is abnormally high ALLERGIES No Known Allergies MEDICATIONS: LEXAPRO 10 mg tablet meloxicam (MOBIC) 15 [...] Take 81 mg by mouth once daily. REVIEW OF SYSTEMS: Review of Systems: PAIN ASSESSMENT: Negative for pain, histo (more content not included)... [facility] 09-18-[address] [facility] 09-18-[address] [facility] 09-09-2024 Evaluation note Authored September 09, 2024 12:04pm The above note written by Konstantin Cho LPN, acting as human recorder, note dictated by Dr. Charles Bazzi. [facility] Work Phone: [phone]) 181-955402-25-2025 Instructions* Patient Instructions* Rody Colmenares LPN - 09/03/2024 2:[address] scans and labs 1 week prior to Office visit with DR Edmondson on 02/20/25 [facility] NoteHNO ID: [id number] Author: TAPAN CORONA MD Service: ? Author Type: Physician Type: Progress Notes Filed: 09/03/2024 14:15 Note Text: PATIENT NAME: Evan Gill CLINIC NO.: [id number] ATTENDING PHYSICIAN: Tapan Corona MD DATE OF SERVICE: September 03, 2024 Some of the elements of this note have been copied from my previous progress note dated 05/08/2024. All the information has been reviewed carefully. Dear Dr. Bazzi here is an update on a follow up visit on female Eavn Gill at the clinic September 03, 2024 Diagnosis: MRI staged T3c,N+M0- Adenocarcinoma of [...] sig 5. Signatera 10/2023, 01/2024, 08/2024- Negative. HPI: Evan Gill is a 69 year old year old female here for follow up. She is doing well overall and denies any fevers and or chills. Denies any abdominal pain. Has had fecal frequency after surgery., PAST MEDICAL HISTORY Diagnosis Date Constipation Diverticulosis [...] : Deferred LABS: Glucose (mg/dL) Date Value 08/19/2024 108 Potassium (mmol/L) Date Value 08/19/2024 4.2 Sodium (mmol/L) Date Value 08/19/2024 142 Chloride (mmol/L) Date Value 08/19/2024 106 CO2 (mmol/L) Date Value 08/19/2024 28 Creatinine (mg/dL) Date Value 08/19/2024 0.74 BUN (mg/dL) Date Value 08/19/2024 23 Anion Gap (mmol/L) Date Value 08/19/2024 8 Calcium, Total (mg/dL) Date Value 08/19/2024 9.6 Protein, Total (g/dL) Date Value 08/19/2024 6.3 Albumin (g/dL) Date Value 08/19/2024 4.1 Bilirubin, Total (mg/dL) Date Value 08/19/2024 0.3 Alkaline Phosphatase (U/L) Date Value 08/19/2024 80 AST (U/L) Date Value 08/19/2024 16 ALT (U/L) Date Value 08/19/2024 15 WBC Date Value Ref Range Status 08/19/2024 6.56 3.70 - 11.00 k/uL Final RBC Date Value Ref Range Status 08/19/2024 3.92 3.90 - 5.20 m/uL Final Hemoglobin Date Value Ref Range Status 08/19/2024 11.7 11.5 - 15.5 g/dL Final Hematocrit Date Value Ref Range Status 08/19/2024 35.4 (L) 36.0 - 46.0 % Final MCV Date Value Ref Range Status 08/10 (more content not included)...[facility]02-25-2025 History of Present illness Narrative* Tapan Corona MD - 09/03/2024 1:49 PM EST Images from the original note were not included. PATIENT NAME: Evan Gill CLINIC NO.: [id number] ATTENDING PHYSICIAN: Tapan Corona MD DATE OF SERVICE: September 03, 2024 Some of the elements of this note have been copied from my previous progress note dated 05/08/2024.All the information has been reviewed carefully. Dear Dr. 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 Signatera 10/2023, 01/2024, 08/2024- Negative. HPI: Evan Gill is a 69 year old year old female here for follow up. She is doing well overall and denies any fevers and or chills. Denies any abdominal pain. Has had fecal frequency after surgery., PAST MEDICAL HISTORY Diagnosis Date Constipation Diverticulosis [...] : Deferred LABS: Glucose (mg/dL) Date Value 08/19/2024 108 Potassium (mmol/L) Date Value 08/19/2024 4.2 Sodium (mmol/L) Date Value 08/19/2024 142 Chloride (mmol/L) Date Value 08/19/2024 106 CO2 (mmol/L) Date Value 08/19/2024 28 Creatinine (mg/dL) Date Value 08/19/2024 0.74 BUN (mg/dL) Date Value 08/19/2024 23 Anion Gap (mmol/L) Date Value 08/19/2024 8 Calcium, Total (mg/dL) Date Value 08/19/2024 9.6 Protein, Total (g/dL) Date Value 08/19/2024 6.3 Albumin (g/dL) Date Value 08/19/2024 4.1 Bilirubin, Total (mg/dL) Date Value 08/19/2024 0.3 Alkaline Phosphatase (U/L) Date Value 08/19/2024 80 AST (U/L) Date Value 08/19/2024 16 ALT (U/L) Date Value 08/19/2024 15 WBC Date Value Ref Range Status 08/19/2024 6.56 3.70 - 11.00 k/uL Final RBC Date Value Ref Range Status 08/19/2024 3.92 3.90 - 5.20 m/uL Final Hemoglobin Date Value Ref Range Status 08/19/2024 11.7 11.5 - 15.5 g/dL Final Hematocrit Date Value Ref Range Status 08/19/2024 35.4 (L) 36.0 - 46.0 % Final MCV Date Value Ref Range Status 08/19/2024 90.3 80.0 - 100.0 fL Final MCH Date Value Ref Range Status 08/19/2024 29.8 26.0 - 34.0 pg Final MCHC Date Value Ref Range Status 08/19/2024 33.1 30.5 - 36.0 g/dL Final RDW-CV Date Value Ref Range Status 08/19/2024 14.6 11.5 - 15.0 % Final Platelet Count Date Value Ref Range Status 08/19/2024 282 150 - 400 k/uL Final MPV Date Value Ref Range Status 08/19/2024 8.2 (L) 9.0 - 12.7 fL Final Abs Neut Date Value Ref Range Status 08/19/2024 4.00 1.45 - 7.50 k/uL Final Lymphocytes % Date Value Ref Range Status 08/19/2024 26.1 % Final Abs Lymph Date Value Ref Range Status 08/19/2024 1.71 1.00 - 4.00 k/uL Final Monocytes % Date Value Ref Range Status 08/19/2024 7.8 % Final Abs [place] Date Value Ref Range Status 08/19/2024 0.51 <0.87 k/uL Final Abs Eosin Date Value Ref Range Status 08/19/2024 0.25 <0.46 k/uL Final Basophils % Date Value Ref Range Status 08/19/2024 1.1 % Final Abs Baso Date Value Ref Range Status 08/19/2024 0.07 <0.11 k/uL Final PATH: Colonoscopy 02/2023: 08/2023 [...] CR. Signatera 10/2023 and 01/2024 and 08/2024 werenegative See back in 6 months and will repeat Signatera and labs and also CT Colonoscopy per Dr. Singer Thank you for the kind referral. If there are any questions and or concerns please do not hesitate to contact me at [phone]. Tapan Corona MD Hematology/Medical Oncology [facility] spent a total of 30 minutes on the date of the service which included preparing to see the patient, [id number] patient care, completing clinical documentation, obtaining and/or reviewing separately obtained history, performing a medically appropriate examination, counseling and educating the pat ient/family/caregiver, and ordering medications, tests, or procedures. CC: documented in this encounterSum[facility] Telephone encounter Note * Telephone Encounter - Lenin Krause RN - 08/27/2024 11:12 AM EST Patient calling Requesting to speak to Gagandeep please Did not get the message/states message did not record Call CELL Leave Detailed messages [facility]02-18-2025 Miscellaneous Notes* Telephone Encounter - Lenin Krause RN - 08/27/2024 11:12 AM EST Patient calling Requesting to speak to Gagandeep please Did not get the message/states message did not record Call CELL Leave Detailed messages * Telephone Encounter - Gagandeep Ward RN - 08/27/2024 10:43 AM EST Left message for patient regarding lab results. Follow up OV Dr Corona 09/03/24 as scheduled. Sent to scanning into epic documented in this encounterSumma Health W[facility]02-18-2025 Telephone encounter Note * Telephone Encounter - Gagandeep Ward RN - 08/27/2024 10:43 AM EST Left message for patient regarding lab results. Follow up OV Dr Corona 09/03/24 as scheduled. Sent to scanning into epic [facility]12-03-2024 Evaluation note* Diagnosis Onset Date Resolution Status Admit Date Infected finger acute June 11, 2024 10:34am Cellulitis of right middle finger inactive June 11 10:34am Other specified postprocedural states noneactive June 112023 10:34am Anxiety and depression acute De cember 2023 12:35pm Colorectal cancer acute Decembe r 2023 12:35pm Hyperlipidemia acute June 112023 12:35pm Hypertension acute June 12:35pm Infected finger acute June 11, 2024 12:35pm Infected finger acute June 25, 2024 8:10am Cellulitis of right middle finger inactive June 25, 2 024 8:10am Other specified postprocedural states noneactive June 092023 8:10am Infected finger acute July 172024 8:19am Other specified postprocedural states noneactive July 8:19am Infected finger acute August 14, 2024 12:45pm Other specified postprocedural states noneactive August 142024 12:45pm Arthritis of finger acute Febr2024 2:43pm Infected finger acute September 04, 2024 2:43pm Other specified postprocedural states acute August 112024 2:43pm [facility] Work Phone: 1(598) 624-513912-03-2024 Evaluation note* Diagnosis Onset Date Resolution Status Admit Date Infected finger acute June 11, 2024 10:34am Cellulitis of right middle finger inactive June 11, 10:34am Other specified postprocedural states noneactive June 112023 10:34am Anxiety and depression acute 2023 12:35pm Colorectal cancer acute Decembe r 2023 12:35pm Hyperlipidemia acute June 112023 12:35pm Hypertension acute June 12:35pm Infected finger acute June 11, 2024 12:35pm Infected finger acute June 25, 2024 8:10am Cellulitis of right middle finger inactive June 25, 2 024 8:10am Other specified postprocedural states noneactive June 092023 8:10am Infected finger acute July 172024 8:19am Other specified postprocedural states noneactive July 8:19am Infected finger acute August 14, 2024 12:45pm Other specified postprocedural states noneactive August 142024 12:45pm Arthritis of finger acute Febru 2024 2:43pm Infected finger acute September 04, 2024 2:43pm Other specified postprocedural states acute August 112024 2:43pm Anxiety and depression acute [facility] 2024 9:54am Colorectal cancer acute September 092024 9:54am Hyperlipidemia acute September 09, 2024 9:54am Infected finger acute September 9:54am [facility] Work Phone: 1(579) 941-948611-21-2024 Evaluation note* Diagnosis Onset Date Resolution Status Admit Date Infected finger acute May 30, 2024 11:20am Cellulitis of right middle finger inactive May 30, 2 024 11:20am Infected finger acute June 11, 2024 10:34am Cellulitis of right middle finger inactive June 11 10:34am Other specified postprocedural states noneactive June 112023 10:34am Anxiety and depression acute 2023 12:35pm Colorectal cancer acute Dece2023 12:35pm Hyperlipidemia acute June 112023 12:35pm Hypertension acute June 12:35pm Infected finger acute June 11, 2024 12:35pm Infected finger acute June 25, 2024 8:10am Cellulitis of right middle finger inactive June 25, 024 8:10am Other specified postprocedural states noneactive June 092023 8:10am Infected finger acute July 172024 8:19am Other specified postprocedural states noneactive July 8:19am [facility] Work Phone: 1(770) 507-585111-21-2024 Evaluation note* Diagnosis Onset Date Resolution Status Admit Date Infected finger acute May 30, 2024 11:20am [...] Other specified postprocedural states noneactive July 8:19am Infected finger acute August 14, 2024 12:45pm Other specified postprocedural states noneactive August 142024 12:45pm [facility] Work Phone: 1(930) 100-884510-30-2024 Instructions* Patient Instructions* Colleen Arceo LPN - 05/08/2024 2:04 PM EDT Follow up with Dr. Corona in August prior Signatera prior to follow up documented in this encounterSumma Health W[facility]10-30-2024 NoteHNO ID: [id number] Author: TAPAN CORONA MD Service: ? Author Type: Physician Type: Progress Notes Filed: 05/08/2024 14:21 Note Text: PATIENT NAME: Evan Gill [facility] NO.: [id number] ATTENDING PHYSICIAN: Tapan Corona MD DATE OF [...] Ref Range Status 02/06/20 (more content not included)...[facility]10-30-2024 History of Present illness Narrative* Tapan Corona MD - 05/08/2024 1:56 PM EDT Images from the original note were not included. PATIENT NAME: Evan Gill [facility] NO.: [id number] ATTENDING PHYSICIAN: Tapan Corona MD DATE OF [...] Range Status 02/06/2024 6.6 % Final Abs [place] Date Value Ref Range Status 02/06/2024 0.29 [...] do not hesitate to contact me at [phone]. Tapan Corona MD Hematology/Medical Oncology [facility] I spent a total of 30 minutes on the date of the service which included preparing to see the patient, [id number] patient care, completing clinical documentation, obtaining and/or reviewing separately obtained history, performing a medically appropriate examination, counseling and educating the pat ient/family/caregiver, and ordering medications, tests, or procedures. CC: documented in this encounterSumma Health W[facility]10-02-2024 NoteHNO ID: [id number] Author: Del HUDSON MD Service: ? Author [...] swelling GI: See H (more content not included)...[facility]10-02-2024 History of Present illness Narrative* Del Hudson [...] by: Del Hudson MD cc: Charles Bazzi, [address] [id number] No referring provider defined for this encounter. documented in this encounterSumma Health Wad[facility]08-14-2024 Telephone encounter Note * Telephone Encounter - Kari Carrillo RN - 02/21/2024 11:23 AM EDT Pt notified of negative signatera result and denies questions, needs or concerns at this time. Kari Carrillo RN [facility]08-14-2024 Miscellaneous Notes* Telephone Encounter - Kari Carrillo RN - 02/21/2024 11:23 AM EDT Pt notified of negative signatera result and denies questions, needs or concerns at this time. Kari Carrillo, RN documented in this encounterSumma Health Wad[facility]07-30-2024 Telephone encounter Note * Telephone Encounter - Amalia Martin - 02/06/2024 2:18 PM EDT Called patient and scheduled labs, signatera and 3 month follow up in [place] with Logan for 05/08 [facility]07-30-2024 Miscellaneous Notes* Telephone Encounter - Amalia Martin - 02/06/2024 2:18 PM EDT Called patient and scheduled labs, signatera and 3 month follow up in [place] with Logan for 05/08 * Telephone Encounter - Jessika Platt - 02/06/2024 1:45 PM EDT Images from the original note were not included. documented in this encounterSumma Health Wad[facility]07-30-2024 Telephone encounter Note * Telephone Encounter - Jessika Platt - 02/06/2024 1:45 PM EDT Images from the original note were not included. [facility]07-30-2024 History of Present illness Narrative* Tapan Corona MD - 02/06/2024 11:34 AM EDT Images from the original note were not included. PATIENT NAME: Evan Gill [facility] NO.: [id number] ATTENDING PHYSICIAN: Tapan Corona MD DATE OF [...] Range Status 02/06/2024 6.6 % Final Abs [place] Date Value Ref Range Status 02/06/2024 0.29 [...] do not hesitate to contact me at [phone]. Tapan Corona MD Hematology/Medical Oncology [facility] spent a total of 30 minutes on the date of the service which included preparing to see the patient, [id number] patient care, completing clinical documentation, obtaining and/or reviewing separately obtained history, performing a medically appropriate examination, counseling and educating the pat ient/family/caregiver, and ordering medications, tests, or procedures. CC: documented in this encounterSumma Health W[facility]07-09-2024 Telephone encounter Note * Telephone Encounter - [...] office back with any questions or concerns. [facility]07-09-2024 Miscellaneous Notes* Telephone Encounter - Cierra Lindquist [...] reversal with Dr. Sullivan November 05. Contact# [phone] documented in this encounterSumma Health Wad[facility] - [facility]07-09-2024 Telephone encounter Note * Telephone Encounter - Amber Dhaliwal - 01/16/2024 11:30 AM EDT Patient called in and has a small opening at her surgical site. Patient had a reversal with Dr. Sullivan November 05. Contact# [phone] [facility]07-02-2024 History of Present illness Narrative* Laisha Singer MD - 01/09/2024 2:20 PM EDT COLORECTAL SURGERY January 09, 2024 Evan Gill Chief Complaint: follow up visit History of Present Illness: Evan Glil is a 68 year old female presents [...] stenosis, but able to pass a digit. Senior Applications Engineer present: Yes, KAYA Sykespyrometallurgical engineer Assessment and Plan: Evan Gill is a [...] which included preparing to see the patient, [id number] patient care, completing clinical documentation, obtaining and/or reviewing separately obtained history, performing a medically appropriate examination, counseling and educating the pat ient/family/caregiver, and care coordination (not separately reported). Laisha Singer MD Colorectal Surgery documented in this encounterSumma Health Wad[facility]07-01-2024 Telephone encounter Note * Telephone Encounter - Colleen Solorio RN - 01/08/2024 10:36 AM EDT Pt calls stating she received a call from [employer] to schedule a date to come out [...] herother labs that day. Colleen Solorio RN [facility] Work Phone: [phone]) [phone] Miscellaneous Notes* Telephone Encounter - Colleen Solorio RN - 01/08/2024 10:36 AM EDT Pt calls stating she received a call from [employer] to schedule a date to come out [...] day. Colleen Solorio RN documented in this encounterSumma Health Wad[facility]06-12-2024 Telephone encounter Note * Telephone Encounter - Colleen Solorio RN - 12/20/2023 11:29 AM EDT Pt calls stating she's scheduled to have a consult with on 01/16 to have port removed. Colleen Solorio RN [facility] Work Phone: [phone] 390-382406-12-2024 Miscellaneous Notes* Telephone Encounter - Colleen Solorio [...] Waiting on [place] response to get scheduled. * Telephone Encounter [...] you Kristin * Telephone Encounter - Prachi Gill RN - 12/13/2023 8:26 AM EDT Please arrange for port removal. Prachi Gill RN * Telephone Encounter - Tapan Corona MD - 12/12/2023 5:58 PM EDT Yes. Please remove * Telephone Encounter - Prachi Gill RN [...] you Prachi Gill RN documented in this encounterSumma Health Wad[facility]06-12-2024 Telephone encounter Note * Telephone Encounter - Kristin Martinez - 12/20/2023 10:35 AM EDT Called Evan to see if she had gotten their message to call to schedule. She did not so I gave hertheir phone number to call and get that scheduled. [facility]06-11-2024 Telephone encounter Note* Telephone Encounter - Kristin Martinez - 12/19/2023 9:14 AM EDT Order was received and they did call patient. Waiting on Rhondas response to get scheduled. [facility]06-10-2024 Telephone encounter Note* Telephone Encounter - Kristin Martinez - 12/18/2023 9:50 AM EDT Refaxed order 12/18/2023 at 9:50 am. I was told as soon as they get the order they will call the patient. [facility]06-06-2024 Telephone encounter Note* Telephone Encounter - Kristin Martinez - 12/14/2023 9:13 AM EDT Faxed order to , will call office to make sure they got it and scheduling information. [facility]06-05-2024 Telephone encounter Note* Telephone Encounter - Prachi Gill, KAYA - 12/13/2023 9:31 AM EDT Please sign order. Thanks!! Prachi Gill, KAYA [facility]06-05-2024 Telephone encounter Note* Telephone Encounter - Kristin Martinez - 12/13/2023 8:52 AM EDT Hi there, I would be happy to get this removal started, could you please enter an order for me? Thank you Kristin [facility]06-05-2024 Telephone encounter Note* Telephone Encounter - Prachi Gill RN - 12/13/2023 8:26 AM EDT Please arrange for port removal. Prachi Gill RN [facility]06-04-2024 Telephone encounter Note* Telephone Encounter - Tapan Corona MD - 12/12/2023 5:58 PM EDT Yes. Please remove [facility]06-04-2024 Telephone encounter Note* Telephone Encounter - Prachi Gill RN - 12/12/2023 8:25 AM EDT Pt is wondering when she can get her port removed? She had it placed for 5FU which she was unable to tolerate. Is it ok to have this removed at this point? Even at her inpatient admissions/surgeries,they have not used her port. Please advise. Thank you Prachi Gill RN [facility]05-17-2024 History of Present illness Narrative* Brandie Salmeron, ROXY.CRICKET COACH - 11/24/2023 3:40 PM EDT COLORECTAL SURGERY November 24, 2023 Evan Gill 68 year old This consult was requested by Dr. Singer and my final recommendations will be communicated to the requesting health care provider by way of the shared medical record for internal providers or letter viathe [employer] for external providers. Chief Complaint: [...] TID for nerve pain concern. Will discuss longterm management with Dr. Singer. -continue probiotics for [...] and/or complications of treatment plan: logan Salmeron APRN.CRICKET COACH Colorectal Surgery documented in this encounterSumma Health Wadsworth [facility]05-14-2024 Telephone encounter Note * Telephone Encounter - Cierra Lindquist RN - 11/21/2023 1:07 PM EDT Orders placed. [facility]05-14-2024 Miscellaneous Notes* Telephone Encounter - Cierra Lindquist RN - 11/21/2023 1:07 PM EDT Orders placed. documented in this encounterSumma Health Wad[facility] - [facility]05-06-2024 Telephone encounter Note * Telephone Encounter - Colleen Solorio RN - 11/13/2023 3:49 PM EDT DISCHARGE CALL BACK Today's date: November 13, 2023 Notified of Pt discharge by: hosp ADT folder Patient discharged on 11/10/23 from [place] to [place] Primary Cancer Diagnosis: rectal cancer Admitting Diagnosis: small bowel obstruction Discharge Summary/SBAR reviewed: Yes Handoff Discussed with Transitional Professional Nursing Tutor: No, unavailable Psychosocial Risk Factors: None If [...] discharge Patient reminded of follow-up appointment with [facility] provider, Dr Corona on 01/16/24: [...] weekend phone number? YES Colleen Solorio RN [facility] Work Phone: 1(680) 348-588605-06-2024 Miscellaneous Notes* Telephone Encounter - Colleen Solorio RN - 11/13/2023 3:49 PM EDT DISCHARGE CALL BACK Today's date: November 13, 2023 Notified of Pt discharge by: hosp ADT folder Patient discharged on 11/10/23 from [place] to [place] Primary Cancer Diagnosis: rectal cancer Admitting Diagnosis: small bowel obstruction Discharge Summary/SBAR reviewed: Yes Handoff Discussed with Transitional Professional Nursing Tutor: No, unavailable Psychosocial Risk Factors: None If [...] discharge Patient reminded of follow-up appointment with [facility] provider, Dr Corona on 01/16/24: [...] YES Colleen Solorio RN documented in this encounterSumma Health Wad[facility] - [facility]05-03-2024 NoteU[facility] 11-10-2023 NoteUmass Memorial Medical [id number] Telephone encounter Note* Telephone Encounter - Colleen Solorio RN - 11/10/2023 11:27 AM EDT Neel results received and pt notified that this was negative. Colleen Solorio RN [facility] Work Phone: 1(445) 607-630905-03-2024 Miscellaneous Notes* Telephone Encounter - Colleen Solorio RN - 11/10/2023 11:27 AM EDT Neel results received and pt notified that this was negative. Colleen Solorio RN * Telephone Encounter - Colleen Solorio RN - 11/02/2023 12:28 PM EDT Call placed to [facility] to follow up on results. They have not received results yet from Neel. Lola spoke with Daksha at [facility]. She states this testing is [...] states it has not. Request faxed to [facility] pathology again, as well as the Neel order. Colleen Solorio RN * Telephone Encounter - Colleen Solorio RN - 10/17/2023 3:04 PM EDT Call received from Sonia at [facility] pathology stating they haven't ordered Signatera before. Order signed and faxed to [facility] as well as Sonia at [facility]. Colleen Solorio RN * Telephone Encounter - Colleen Solorio RN - 10/17/2023 1:51 PM EDT Email received that there is no residual tumor for Neel to be ordered on [id number]- [id number]. Discussed with Dr Corona and he would like this added to [facility] [phone]. Request faxed to [facility] today. Colleen Solorio RN documented in this encounterSumma Health Wad[facility]05-02-2024 NoteU[facility] 11-09-2023 NoteUmass Memorial Medical [id number] NoteUmass Memorial Medical [id number] Note [facility] [id number] NoteUmass Memorial Medical [id number] NoteUmass Memorial Medical [id number] NoteUmass Memorial Medical [id number] Telephone encounter Note* Telephone Encounter - Cierra Lindquist RN - 11/06/2023 1:31 PM EDT Noted. Informed team that she will be coming to the emergency room for concerns of a bowel obstruction. [facility]04-29-2024 Miscellaneous Notes* Telephone Encounter - Cierra Lindquist [...] seeing Dr. Singer tomorrow in clinic. Contact# [phone] documented in this encounterSumma Health [facility]04-29-2024 Telephone encounter Note * Telephone Encounter - Tapan Corona MD - 11/06/2023 1:22 PM EDT Oh no and thanks for the update [facility]04-29-2024 Miscellaneous Notes* Telephone Encounter - Tapan Corona MD - 11/06/2023 1:22 PM EDT Oh no and thanks for the update * Telephone Encounter - Colleen Solorio RN - 11/06/2023 12:50 PM EDT Pt's daughter notified of results. Daughter states pt is currently in the ER at [place] with a possible bowel obstruction. Pt was scheduled for follow up appointment with Dr Singer tomorrow so they arehopeful that she'll be able to see her today. Colleen Solorio RN * Telephone Encounter - Colleen Solorio RN - 11/06/2023 12:48 PM EDT ----- Message from Tapan Corona MD sent at 11/06/2023 7:12 AM EDT ----- Please call with negative Signatera documented in this encounterSumma Health W[facility]04-29-2024 Telephone encounter Note * Telephone Encounter - Colleen Solorio RN - 11/06/2023 12:50 PM EDT Pt's daughter notified of results. Daughter states pt is currently in the ER at [place] with a possible bowel obstruction. Pt was scheduled for follow up appointment with Dr Singer tomorrow so they arehopeful that she'll be able to see her today. Colleen Solorio RN [facility] Phone: 1(699) 816-543804-29-2024 Telephone encounter Note* Telephone Encounter - Colleen Solorio RN - 11/06/2023 12:48 PM EDT ----- Message from Tapan Corona MD sent at 11/06/2023 7:12 AM EDT ----- Please call with negative Signatera [facility]04-29-2024 Telephone encounter Note* Telephone Encounter - Amber [...] seeing Dr. Singer tomorrow in clinic. Contact# [phone] [facility]04-25-2024 Telephone encounter Note* Telephone Encounter - Colleen Solorio RN - 11/02/2023 12:28 PM EDT Call placed to [facility] to follow up on results. They have not received results yet from [facility]. Lola spoke with Daksha at [facility]. She states this testing is still in progress. Blood sample received 10/11, tissue sample received 10/18. Final report should be available in 3-4 wks from 10/18 if no repeat or redraws are needed (which would be 11/08-11/15). Colleen Solorio RN [facility]04-20-2024 Progress note Author Ion Eckert [facility] October 28, 2023 10:25am Note Date/Time October 28, 2023 10: 25am [facility] [address] [place] [address] General Surgery Progress Note Signed Patient: Evan Gill MR#: [id number] : 1955 Acct:[id number] Age/Sex: 68 / F Adm Date: 4 Loc: 4N Room: [address] [place] [address] Type: ADM IN Attending Dr: Jm Trujillo [...] health maintenance 11/02/18 [History Confirmed 10/26/23] omega 7-xll-biw-fish oil 1,000 mg (120 mg-180 mg) capsule [...] mg/mL subcutaneous syringe (Prolia) 60 mg subcut [id number] 06/26/23 [History Confirmed 10/26/23] progesterone micronized 100 [...] Vial) 40 mg IV-PUSH DAILY [facility] Stop: 10/25/24 08:59 Last Admin: 10/27/23 09:06 [...] 10 Ml Syringe) 0 ml IV-PUSH QSHIFT [facility] Stop: 10/25/24 05:59 Last Admin: 10/28/23 01:39 [...] % (Auto) 66.8, Lymph % (Auto) 13.6, [place] % (Auto) 11.9, Eos % (Auto) 7.1, Baso % (Auto) 0.6, Nucleat RBC Rel Count 0.1, Neut # (Auto) 3.8, Lymph # (Auto) 0.8 L, [place] # (Auto) 0.7, Eos # (Auto) 0.4, [...] % (Auto) 72.0, Lymph % (Auto) 10.5, [place] % (Auto) 11.5, Eos % (Auto) 5.6, Baso % (Auto) 0.4, Nucleat RBC Rel Count 0.0, Neut # (Auto) 5.7, Lymph # (Auto) 0.8 L, [place] # (Auto) 0.9 H, Eos # (Auto) [...] signed by DO Ion Eckert> 10/28/23 1025 [facility] Work Phone: 1(485) 873-210304-19-2024 Telephone encounter Note* Telephone Encounter - Colleen Solorio RN - 10/27/2023 3:47 PM EDT Sonia calls back stating she looked into this a little further and she did send this specimen out on 10/18/23. Colleen Solorio RN [facility]04-19-2024 Progress note Author Jm Trujillo [facility] October 27, 2023 10:34am Note Date/Time October 27, 2023 10: 34am [facility] [address] [place] [address] Hospitalist Progress Note Signed Patient: Evan Gill MR#: [id number] : 1955 Acct:[id number] Age/Sex: 68 / F Adm Date: 4 Loc: Room: [address] [place] [address] Type: ADM IN Attending Dr: Jm Trujillo [...] signed by Jm Trujillo DO> 10/27/23 1034 [facility] Work Phone: 1(170) 896-346504-19-2024 Progress note Author Ion Ekcert [facility] October 27, 2023 10:04am Note Date/Time October 27, 2023 10: 04am [facility] [address] [place] [address] General Surgery Progress Note Signed Patient: Evan Gill MR#: [id number] : 1955 Acct:[id number] Age/Sex: 68 / F Adm Date: 4 Loc: Room: [address] [place] [address] Type: ADM IN Attending Dr: Jm Trujillo [...] health maintenance 11/02/18 [History Confirmed 10/26/23] omega 0-gir-gaf-fish oil 1,000 mg (120 mg-180 mg) capsule [...] mg/mL subcutaneous syringe (Prolia) 60 mg subcut [id number] 06/26/23 [History Confirmed 10/26/23] progesterone micronized 100 [...] @ 100 mls/hr IV .Q10H [facility] Stop: 10/25/24 01:44 Last Admin: 10/27/23 05:41 Dose: 100 mls/hr Ceftriaxone Sodium (Rocephin) 1 gm in 50 mls @ 100 mls/hr IV Q24H [facility] Last Admin: 10/27/23 01:56 Dose: 100 mls/hr Ondansetron HCl (Ondansetron 4 Mg/2 Ml Vial) 4 mg IV-PUSH Q6H PRN PRN Reason: Nausea And Vomiting Stop: 10/25/24 01:37 Last Admin: 10/26/23 11:41 Dose: 4 mg Pantoprazole Sodium (Pantoprazole 40 Mg Vial) 40 mg IV-PUSH DAILY [facility] Stop: 10/25/24 08:59 Last Admin: 10/27/23 09:06 [...] % (Auto) 72.0, Lymph % (Auto) 10.5, [place] % (Auto) 11.5, Eos % (Auto) 5.6, Baso % (Auto) 0.4, Nucleat RBC Rel Count 0.0, Neut # (Auto) 5.7, Lymph # (Auto) 0.8 L, [place] # (Auto) 0.9 H, Eos # (Auto) [...] % (Auto) 80.3, Lymph % (Auto) 8.5, [place] % (Auto) 9.5, Eos % (Auto) 0.9, Baso % (Auto) 0.8, Nucleat RBC Rel Count 0.0, Neut # (Auto) 8.5 H, Lymph # (Auto) 0.9 L, [place] # (Auto) 1.0 H, Eos # (Auto) 0.1, Baso # (Auto) 0.1, PHA Creatinine Clear 53.18, Sodium 138, Potassium 4.8, Chloride 102, Carbon Dioxide 29.4, Anion Gap 11.4, BUN 19, Creatinine 0.85, Est GFR (CKD-EPI) > 60.0, [id number] H, Calcium 9.3, Magnesium 2.0 10/25/23 23:19: Troponin I High Sens 4.9 10/25/23 22:37: Urine Color Yellow, Urine Appearance Clear, Urine pH 5.5, Ur Specific [place] 1.037 H, Urine Protein Negative, Urine Glucose [...] % (Auto) 75.5, Lymph % (Auto) 14.9, [place] % (Auto) 6.7, Eos % (Auto) 2.2, Baso % (Auto) 0.7, Nucleat RBC Rel Count 0.0, Neut # (Auto) 10.9 H, Lymph # (Auto) 2.2, [place] # (Auto) 1.0 H, Eos # (Auto) [...] signed by DO Ion Eckert> 10/27/23 1004 [facility] Work Phone: 1([phone]) 993-326804-18-2024 Telephone encounter Note* Telephone Encounter - Colleen Solorio RN - 10/26/2023 1:50 PM EDT Call placed to Sonia to see if this has been sent out yet. She states it has not. Request faxed to [facility] pathology again, as well as the [facility] order. Colleen Solorio RN [facility]04-18-2024 Consult note Author Ion Eckert [facility] October 26, 2023 11:12am Note Date/Time October 26, 2023 11: 12am [facility] [address] [place] [address] General Surgery Consult Note Signed Patient: Evan Gill MR#: [id number] : 1955 Acct:[id number] Age/Sex: 68 / F Adm Date: 4 Loc: 4N Room: [address] [place] [address] Type: ADM IN Attending Dr: Jm Trujillo DO Copies to: Charles Bazzi,DO Jm Trujillo, DO Ion Eckert DO~ History of Present Illness Date of [...] here in September waiting for bed at [facility] and her obstruction improved after about [...] She was set to be transferred to [facility] but they are waiting on transport/beds. [...] Dr. Laisha singer was her surgeon at [facility] Review of Systems Review of Systems All other systems reviewed & are negative unless noted below or in HPI [facility] Medical History Rectal cancer Colorectal cancer Menopause [...] health maintenance 11/02/18 [History Confirmed 10/26/23] omega 9-kjm-ikn-fish oil 1,000 mg (120 mg-180 mg) capsule [...] mg/mL subcutaneous syringe (Prolia) 60 mg subcut [id number] 06/26/23 [History Confirmed 10/26/23] progesterone micronized 100 [...] Ringers) 1,000 mls @ 75 mls/hr IV .[id number] [facility] Stop: 10/25/24 01:44 Last Admin: 10/26/23 04:12 Dose: 75 mls/hr Ceftriaxone Sodium (Rocephin) 1 gm in 50 mls @ 100 mls/hr IV Q24H [facility] Last Admin: 10/26/23 04:11 Dose: 100 mls/hr Lactated Ringer's (Lactated Ringers) 1,000 mls @ 999 mls/hr IV .Q1H1M ONE Stop: 10/26/23 11:28 Ondansetron HCl (Ondansetron 4 Mg/2 Ml Vial) 4 mg IV-PUSH Q6H PRN PRN Reason: Nausea And Vomiting Stop: 10/25/24 01:37 Pantoprazole Sodium (Pantoprazole 40 Mg Vial) 40 mg IV-PUSH DAILY [facility] Stop: 10/25/24 08:59 Last Admin: 10/26/23 09:11 [...] % (Auto) 80.3, Lymph % (Auto) 8.5, [place] % (Auto) 9.5, Eos % (Auto) 0.9, Baso % (Auto) 0.8, Nucleat RBC Rel Count 0.0, Neut # (Auto) 8.5 H, Lymph # (Auto) 0.9 L, [place] # (Auto) 1.0 H, Eos # (Auto) 0.1, Baso # (Auto) 0.1, PHA Creatinine Clear 53.18, Sodium 138, Potassium 4.8, Chloride 102, Carbon Dioxide 29.4, Anion Gap 11.4, BUN 19, Creatinine 0.85, Est GFR (CKD-EPI) > 60.0, [id number] H, Calcium 9.3, Magnesium 2.0 10/25/23 23:19: Troponin I High Sens 4.9 10/25/23 22:37: Urine Color Yellow, Urine Appearance Clear, Urine pH 5.5, Ur Specific [place] 1.037 H, Urine Protein Negative, Urine Glucose [...] % (Auto) 75.5, Lymph % (Auto) 14.9, [place] % (Auto) 6.7, Eos % (Auto) 2.2, Baso % (Auto) 0.7, Nucleat RBC Rel Count 0.0, Neut # (Auto) 10.9 H, Lymph # (Auto) 2.2, [place] # (Auto) 1.0 H, Eos # (Auto) [...] <Electronically signed by DO Ion Eckert> 10/26/23 1112 [facility] Work Phone: 1(653) 995-601904-18-2024 Progress note Author Jm Trujillo [facility] October 26, 2023 10:34am Note Date/Time October 26, 2023 10: 34am [facility] [address] [place] [address] Hospitalist Progress Note Signed Patient: Evan Gill MR#: [id number] : 1955 Acct:[id number] Age/Sex: 68 / F Adm Date: 4 Loc: Room: [address] [place] [address] Type: ADM IN Attending Dr: Jm Trujillo [...] Lactated Ringers IV 10/25/24 01:44 75 mls/hr .[id number] YUMIKO Administration Ceftriaxone Sodium 1 gm in [...] Consult general surgery ? May transfer to [facility] when bed available ? NG to [...] signed by Jm Trujillo DO> 10/26/23 1034 [facility] Work Phone: [phone] 639-918904-18-2024 History and physical note Author Patrice Hooks [facility] October 26, 2023 4:08am Note Date/Time October 26, 2023 1:4 8am [facility] [address] [place] [address] Hospitalist H&P Signed Patient: Evan Gill MR#: [id number] : 1955 Acct:[id number] Age/Sex: 68 / F Adm Date: 4 Loc: 4N Room: 2M8318-6 Type: ADM IN Attending Dr: Patrice Hooks MD Copies to: MD Charles Peng DO Paula G Smith, EDITOR PRODUCER~ HPI DATE OF EXAMINATION: 10/26/23 CHIEF COMPLAINT: abdominal pain HISTORY OF PRESENT ILLNESS: Attending note: I saw the patient personally on the day of encounter. I reviewed the relevant history, and performed the guzman elements of the physical examination. I reviewedthe relevant laboratory workup, radiological studies and the current treatment plan. I formulated the plan of care and confirmed it with the resident/student/LACING PRESSER. Ms. Gill is a 68-year-old female with [...] and Zosyn. Patient's proctosigmoidectomy was performed at [facility], surgeon was contacted there per the ER physician and the patient was accepted however we are waiting on a bed. She will be admitted as inpatient to the medical floor while awaiting a bed. Review of Systems Review of Systems Review of systems: A 10 point review of systems was obtained, negative unless noted in the HPI or below. [facility] Medical History Rectal cancer Colorectal cancer Menopause [...] health maintenance 11/02/18 [History Confirmed 10/26/23] omega 2-tzt-iez-fish oil 1,000 mg (120 mg-180 mg) capsule [...] mg/mL subcutaneous syringe (Prolia) 60 mg subcut [id number] 06/26/23 [History Confirmed 10/26/23] progesterone micronized 100 [...] Corrected WBC 14.4 X10E3/uL (3.8-11.6) H 10/25/23 20:27 Uncorrected WBC Count 14.4 x10E3/uL (3.8-11.6) H 10/25/23 20:27 RBC 4.39 X10E6/uL (3.60-5.00) 10/25/23 20:27 Hgb 12.9 g/dL (11.8-15.4) 10/25/23 20:27 Hct 38.4 % (34.0-46.4) 10/25/23 20:27 MCV 87.5 fl (80-100) 10/25/23 20:27 MCH 29.3 pg (24.7-34.3) 10/25/23 20: MCHC 33.5 g/dL (32.0-35.0) 10/25/23 20: RDW 15.5 % (11.9-15.3) H 10/25/23 20:27 Plt Count 397 x10E3/uL (150-450) 10/25/23 20:27 MPV 6.4 fl (6.3-10.7) 10/25/23: Neut % (Auto) 75.5 % (.) 10/25/23: Lymph % (Auto) 14.9 % (.) 10/25/23: [place] % (Auto) 6.7 % (.) 10/25/23: Eos % (Auto) 2.2 % (.) 10/25/23 Baso % (Auto) 0.7 % (.) 10/25/23: Nucleat RBC Rel Count 0.0 /100 WBC (0-0.5) 10/25/23 Neut # (Auto) 10.9 x10E3/uL (1.8-7.7) H 10/25/23: Lymph # (Auto) 2.2 x10E3/uL (1.00-4.8) 10/25/23 [place] # (Auto) 1.0 x10E3/uL (0.0-0.8) H 10/25/23: Eos # (Auto) 0.3 x10E3/uL (0.0-0.45) 10/25/23: Baso # (Auto) 0.1 x10E3/uL (0.0-0.2) 10/25/23: Monocyte Dist Width 18.93 % (0.00-20.00) 10/25/23: PT 11.4 Seconds (9.0-12.9) 10/25/23 INR 1.0 10/25/23: APTT 25.0 Seconds (25.1-36.5) L 10/25/23: D-Dimer Quant (PE/DVT) 312 ng/mL (0-243) H 10/25/23: D-Dimer Quant (PE/DVT) Cancelled 10/25/23: PHA Creatinine Clear 61.55 10/25/23: Sodium 133 mmol/L (136-145) L D 10/25/23: Potassium 4.0 mmol/L (3.5-5.1) 10/25/23: Chloride 100 mmol/L (98-107) 10/25/23 20:27 Carbon Dioxide 21.9 mmol/L (21.0-31.0) 10/25/23 20: Anion Gap 15.1 mEq/L (6.0-15.0) H 10/25/23 20:27 BUN 20 mg/dL (7-25) 10/25/23 20:27 Creatinine 0.67 mg/dL (0.60-1.20) 10/25/23 20:27 Est [...] 10/25/23 20:27 ALT 36 U/L (7-52) 10/25/23 20:27 Alkaline Phosphatase 79 U/L (34-104) 10/25/23 20:27 [...] pH 5.5 (5.0-9.0) 10/25/23 22:37 Ur Specific [place] 1.037 (1.001-1.030) H 10/25/23 22:37 Urine Protein [...] Consult general surgery ? May transfer to [facility] when bed available ? NG to [...] <Electronically signed by Patrice Hooks MD> 10/26/23 0400 [facility] Work Phone: 1(180) 753-927104-17-2024 Miscellaneous Notes* Telephone Encounter - Cierra Lindquist RN - 10/25/2023 2:44 PM EDT Returned call. She states she is having the signs of another small bowel obstruction. She has not had stool in her ostomy since 3am. She is requesting pain medication to relax her bowels. She states that is what [facility] did to help her have bowel movements [...] ER and is requesting pain medication. Contact# [phone] documented in this encounterSumma Health [facility]04-09-2024 Telephone encounter Note * Telephone Encounter - Colleen Solorio RN - 10/17/2023 3:04 PM EDT Call received from Sonia at [facility] pathology stating they haven't ordered Signatera before. Order signed and faxed to [facility] as well as Sonia at [facility]. Colleen Solorio RN [facility]04-09-2024 Telephone encounter Note* Telephone Encounter - Colleen Solorio RN - 10/17/2023 1:51 PM EDT Email received that there is no residual tumor for [facility] to be ordered on [id number]. Discussed with Dr Corona and he would like this added to [facility] [id number]. Request faxed to [facility] today. Colleen Solorio RN [facility]04-02-2024 History of Present illness Narrative* Dheeraj De [...] 2023 Time: 1:37 PM documented in this encounterSumma Health W[facility]04-02-2024 History of Present illness Narrative* [...] Del Hudson MD cc: Charles Bazzi DO [address] [place] [phone] No referring provider defined for this encounter. documented in this encounterSumma Health [facility]04-02-2024 History of Present illness Narrative* Tapan Corona MD - 10/10/2023 11:06 AM EDT Images from the original note were not included. PATIENT NAME: Evan Gill CLINIC NO.: [id number] ATTENDING PHYSICIAN: Tapan Corona MD DATE OF [...] Range Status 08/31/2023 7.2 % Final Abs [place] Date Value Ref Range Status 08/31/2023 0.67 [...] do not hesitate to contact me at [phone]. Tapan Corona MD Hematology/Medical Oncology [facility] Giordano spent a total of 30 minutes on the date of the service which included preparing to see the patient, [id number] patient care, completing clinical documentation, obtaining and/or reviewing separately obtained history, performing a medically appropriate examination, counseling and educating the pat ient/family/caregiver, and ordering medications, tests, or procedures. CC: documented in this encounterJennifer Ville [address]-24-2024 Progress note Author Tim Garduno [facility] October 01, 2023 1:12pm Note Date/Time October 01, 2023 10: 31am [facility] [address] [place] [address] Hospitalist Progress Note Signed with Addenda Patient: Evan Gill MR#: [id number] : 1955 Acct:[id number] Age/Sex: 68 / F Adm Date: 4 Loc: Room: [address] [place] [address] Type: ADM IN Attending Dr: Tim Garduno [...] <Electronically signed by Tim Garduno MD> 10/01/23 131 Date of Service: 10/01/2023 Subjective Subjective Narrative: [...] <Electronically signed by Tim Garduno MD> 10/01/23 1035 [facility] Work Phone: 1(524) 189-897603-23-2024 Progress note Author Tim Garduno [facility] September 30, 2023 11:15am Note Date/Time September 30, 2023 11: 15am [facility] [address] [place] [address] Progress Note Signed Patient: Evan Gill MR#: [id number] : 1955 Acct:[id number] Age/Sex: 68 / F Adm Date: 4 Loc: Room: [address] [place] [address] Type: ADM IN Attending Dr: Tim Garduno MD Copies to: ~ Date of Service: 09/30/2023 Progress Narrative Note SBO PROGRESS NOTE Progress Note: Case was discussed with patient's surgeon at [facility] Dr. Durán, hereviewed her CT scan that was done here and showed SBO and suggested to provide IV fluids and ostomy irrigation/enema and hopefully she will improve with conservative management and save the trip back to [place]. He states if she does not improve [...] <Electronically signed by Tim Garduno MD> 09/30/23 4644 [facility] Work Phone: [phone]) 409-875503-23-2024 Consult note Author Cristhian Vargas [facility] September 30, 2023 10:17am Note Date/Time September 30, 2023 10: 17am [facility] [address] [place] [address] General Surgery Consult Note Signed Patient: Evan Gill MR#: [id number] : 1955 Acct:[id number] Age/Sex: 68 / F Adm Date: 4 Loc: Room: [address] [place] [address] Type: ADM IN Attending Dr: Tim Garduno MD Copies to: MD Charles Govea DO Obaydah M Daromar, MD~ History of Present Illness Date of consult: 09/30/2023 Reason for consult: other (Bowel obstruction) Requesting/Attending Provider: Tim Garduno MD History of present illness: Patient is a 68-year-old female who last month underwent robotic laparoscopic assisted low anterior resection for rectal cancer at [facility]. She had previously been treated with chemotherapy [...] the ileostomy. No bed was available at [facility]. Patient was admitted here. This morning, [...] and Denies vomiting Neurologic Neurologic: Denies syncope [facility] Medical History (Updated 09/30/23 @ 10:16 by [...] health maintenance 11/02/18 [History Confirmed 09/30/23] omega 2-dcc-btn-fish oil 1,000 mg (120 mg-180 mg) capsule [...] mg/mL subcutaneous syringe (Prolia) 60 mg subcut [id number] 06/26/23 [History Confirmed 09/30/23] progesterone micronized 100 [...] % (Auto) 71.5, Lymph % (Auto) 12.0, [place] % (Auto) 8.0, Eos % (Auto) 7.3, Baso % (Auto) 1.2, Nucleat RBC Rel Count 0.1, Neut # (Auto) 6.8, Lymph # (Auto) 1.1, [place] # (Auto) 0.8, Eos # (Auto) 0.7 [...] tolerated. If patient worsens again, transfer to [facility] tomorrow. Documented By: Cristhian Vargas MD 09/30/23 1010 Signed By: <Electronically signed by MD Cristhian Vargas> 09/30/23 [facility] Work Phone: 1(460) 702-804403-23-2024 History and physical note Author Miguel Ángel Delgadillo [facility] September 30, 2023 6:58am Note Date/Time September 30, 2023 5:2 9am [facility] [address] [place] [address] Hospitalist H&P Signed Patient: Evan Gill MR#: [id number] : 1955 Acct:[id number] Age/Sex: 68 / F Adm Date: 4 Loc: 3T Room: [address] [place] [address] Type: ADM IN Attending Dr: Miguel Ángel [...] reports are out of hospital reading. final critical access hospital radiology report pending) [facility] was contacted but they are not [...] care Discussed with:?the medical team, the patient [facility] Medical History (Updated 09/30/23 @ 03:06 by Patrice Springer DO) Colorectal cancer Menopause Depression Skin cancer [...] health maintenance 11/02/18 [History Confirmed 06/26/23] omega 6-jzr-xbj-fish oil 1,000 mg (120 mg-180 mg) capsule [...] mg/mL subcutaneous syringe (Prolia) 60 mg subcut [id number] 06/26/23 [History Confirmed 06/26/23] hydrocodone 5 mg-acetaminophen [...] % (Auto) 12.0 % (.) 09/30/23 01:20 [place] % (Auto) 8.0 % (.) 09/30/23 01:20 Eos % (Auto) 7.3 % (.) 09/30/23 01:20 Baso % (Auto) 1.2 % (.) 09/30/23 01:20 Nucleat RBC Rel Count 0.1 /100 WBC (0-0.5) 09/30/23 01:20 Neut # (Auto) 6.8 x10E3/uL (1.8-7.7) 09/30/23 01:20 Lymph # (Auto) 1.1 x10E3/uL (1.00-4.8) 09/30/23 01:20 [place] # (Auto) 0.8 x10E3/uL (0.0-0.8) 09/30/23 01:20 [...] by Miguel Ángel Delgadillo MD> 09/30/23 0658 [facility] Work Phone: 1(889) 581-158403-15-2024 History of Present illness Narrative* Brandie Salmeron APRN.CRICKET COACH - 09/22/2023 2:40 PM EDT COLORECTAL SURGERY September 22, 2023 Evan Gill 68 year old This consult was requested by Dr. Singer and my final recommendations will be communicated to the requesting health care provider by way of the shared medical record for internal providers or letter viathe [employer] for external providers. Chief Complaint: [...] lower quadrant. Red, healthy mucosa. Round, budded. Cogswell 2 piece pouch intact, patient placed, effluent [...] Salmeron APRN.MERARY Colorectal Surgery documented in this encounterSumma Health W[facility]02-29-2024 Miscellaneous Notes* Telephone Encounter - [...] advise Colleen Solorio RN documented in this encounterSumma Health Wad[facility]02-28-2024 Miscellaneous Notes* Telephone Encounter - Colleen Solorio RN - 09/06/2023 2:58 PM EST DISCHARGE CALL BACK Today's date: September 06, 2023 Notified of Pt discharge by: hospital ADT folder Patient discharged on 09/04/23 from [place] to Home Primary Cancer Diagnosis: rectal cancer Admitting Diagnosis: Small bowel obstruction Discharge Summary/SBAR reviewed: Yes Handoff Discussed with Transitional Professional Nursing Tutor: No, unavailable Psychosocial Risk Factors: None If [...] Corona Patient reminded of follow-up appointment with [facility] provider, Dr Corona on TBD: [...] YES Colleen Solorio RN documented in this encounterSumma Health W[facility]02-27-2024 Miscellaneous Notes* Telephone Encounter - Cierra Lindquist RN - 09/05/2023 1:07 PM EST Tumor board documented in this encounterSumma Health Wadsworth - [facility]02-26-2024 [facility] 09-03-2023 NoteUmass Memorial Medical CenterHfnzyrqx72-65-2082 NoteUmass Memorial Medical CenterHorbiufr61-79-9983 Miscellaneous Notes* Telephone Encounter - Colleen Solorio RN - 09/01/2023 12:58 PM EST DISCHARGE CALL BACK Today's date: September 01, 2023 Notified of Pt discharge by: hospital adt folder Patient discharged on 08/30/23 from [place] to [place] Primary Cancer Diagnosis: rectal cancer Admitting Diagnosis: surgery-ileostomy Discharge Summary/SBAR reviewed: Yes Handoff Discussed with Transitional Professional Nursing Tutor: No, unavailable Psychosocial Risk Factors: None unable to assess, didn't speak with patient If patient discharged to SNF/Rehab Facility, phone call completed to reinforce discharge instructions and follow up: N/A Call Disposition: Readmitted or In Emergency Department Colleen Solorio RN documented in this encounterSumma Health Wadsworth [facility]02-23-2024 [facility] 08-31-2023 NoteUmass Memorial Medical CenterOekpbflu37-32-8883 History of Past illness Narrative* Problem Noted Date Diagnosed Date Resolved Date Small bowel obstruction 08/31/202308/11 Encounter for ostomy care education 08/26/2023 08/29/2023 documented as of this encounter (statuses as of 09/06/2023) [facility]02-22-2024 History of Past illness Narrative* Problem Noted Date Diagnosed Date Resolved Date Small bowel obstruction 08/31/202308/11 Encounter for ostomy care education 08/26/2023 08/29/2023 documented as of this encounter (statuses as of 09/06/2023) [facility]02-22-2024 History of Past illness Narrative* Problem Noted Date Diagnosed Date Resolved Date Small bowel obstruction 08/31/202308/11 Encounter for ostomy care education 08/26/2023 08/29/2023 documented as of this encounter (statuses as of 09/07/2023) [facility]02-22-20[facility] History of Past illness Narrative* Problem Noted Date Diagnosed Date Resolved Date Small bowel obstruction 08/31/202308/11 Encounter for ostomy care education 08/26/2023 08/29/2023 documented as of this encounter (statuses as of 09/07/2023) [facility]-22-20[facility] History of Past illness Narrative* Problem Noted Date Diagnosed Date Resolved Date Small bowel obstruction 08/31/202308/11 Encounter for ostomy care education 08/26/2023 08/29/2023 documented as of this encounter (statuses as of 09/14/2023) [facility] History of Past illness Narrative* Problem Noted Date Diagnosed Date Resolved Date Small bowel obstruction 08/31/202308/11 Encounter for ostomy care education 08/26/2023 08/29/2023 documented as of this encounter (statuses as of 09/22/2023) [facility]02-22-[facility] History of Past illness Narrative* Problem Noted Date Diagnosed Date Resolved Date Small bowel obstruction 08/31/202308/11 Encounter for ostomy care education 08/26/2023 08/29/2023 documented as of this encounter (statuses as of 10/10/2023) [facility]02-22-20[facility] History of Past illness Narrative* Problem Noted Date Diagnosed Date Resolved Date Small bowel obstruction 08/31/202308/11 Encounter for ostomy care education 08/26/2023 08/29/2023 documented as of this encounter (statuses as of 10/11/2023) [facility]-22[facility] History of Past illness Narrative* Problem Noted Date Diagnosed Date Resolved Date Small bowel obstruction 08/31/202308/11 Encounter for ostomy care education 08/26/2023 08/29/2023 documented as of this encounter (statuses as of 10/19/2023) [facility] History of Past illness Narrative* Problem Noted Date Diagnosed Date Resolved Date Small bowel obstruction 08/31/202308/11 Encounter for ostomy care education 08/26/2023 08/29/2023 documented as of this encounter (statuses as of 10/26/2023) [facility]-22-20[facility] History of Past illness Narrative* Problem Noted Date Diagnosed Date Resolved Date Small bowel obstruction 08/31/202308/11 Encounter for ostomy care education 08/26/2023 08/29/2023 documented as of this encounter (statuses as of 10/17/2023) [facility]02-21-2024 NoteUmass Memorial Medical CenterKafpymwa19-13-4147 NoteU[facility] 08-29-2023 NoteUmass Memorial Medical CenterDhegtdhs87-20-4389 NoteUmass Memorial Medical CenterWyihtjbz49-86-6457 Note [facility] CenterWdrhaiyy92-67-8693 NoteHNO ID: [id number] Author: DONN SAMUELS RN Service: ? Author Type: Registered Nurse Type: Nursing Progress Note Filed: 08/27/2023 02:07 Note Text: Pt states tolerating clears. Oxycodone controlling abd pain and given at 2024. [facility] CenterMsszkrqf04-22-1861 History of Past illness Narrative* Problem Noted Date Diagnosed Date Resolved Date Encounter for ostomy care education 08/26/2023 08/29/2023 documented as of this encounter (statuses as of 09/01/2023) [facility]02-17-2024 NoteUmass Memorial Medical CenterHconfadn51-15-6828 NoteU[facility] 08-25-2023 NoteUmass Memorial Medical CenterGqemiecg53-37-6040 NoteUmass Memorial Medical CenterGgkjrpnw44-90-8560 Note [facility] CenterTgpnrjtr06-31-6633 History and physical note* Jordan Ramos APRN.CRICKET COACH - 08/11/2023 12:40 PM EST Images from [...] Take 1 Each by mouth once daily. [employer] supplies guzman mitochondrial micronutrients and a smart [...] fevers. Neuro: No history of TIA's, stroke, FUEL ASSEMBLER tumor, impaired sensorium, hemiplegia, paraplegia or quadraplegia. [...] or incontinence,, stones or chronic kidney disease GRANITE CUTTER APPRENTICE: Negative for abnormal vaginal bleeding, abnormal vaginal [...] a low risk scan. CHEST XR 06/26/23 [id number]-J-[id number] PLACEMENT, DESCRIBED. NO ACUTE FINDINGS Assessment/Plan Atrial [...] myocardial fusion study which done at the [facility] and was able to retrieve the [...] This Encounter Confirm Blood Type Order Comments: [facility] Standing Status: Future Standing Expiration [...] 2023 TIME: 12:16 PM documented in this encounterSumma Health Wadsworth - [facility]02-02-2024 Instructions* Patient Instructions* Jordan Ramos APRN.CNP - 08/11/2023 12:14 PM EST PATIENT PREOPERATIVE INSTRUCTIONS Laisha Singer MD has scheduled you for your procedure at this [facility]: [phone] --[phone] [address]. Please check in on the1st floor at [...] Procedures: - YOU MUST HAVE A RESPONSIBLE CHILD AND FAMILY SERVICES SPECIALIST TAKE YOU HOME. A SPD TECH OR COLOR RECEIVER CANNOT BE MADE A RESPONSIBLE CHILD AND FAMILY SERVICES SPECIALIST. - We recommend that a responsible person [...] Advance Directive, please fax a copy to [phone] or email to for it to be [...] your chart that day. documented in this encounterSumma Health Wadsworth - [facility] Center01-16-2024 History of Present illness Narrative* [...] myocardial fusion study which done at the [facility] and was able to retrieve the [...] mouth once daily., Disp: , Rfl: omega 5-zrt-adw-fish oil (Fish OiL) 1,000 mg (120 mg-180 [...] 4. BMI 24.0-24.9, adult documented in [facility] encounterC[facility] Work Phone: 1(264) 207-505601-16-2024 Instructions* Patient Instructions* Madison Sylvester LPN - [...] 6 months Same medications documented in this encounterCleveland [facility] Work Phone: [phone]) 646-682212-13-2023 Miscellaneous Notes* Telephone Encounter - Colleen Solorio [...] education. Colleen Solorio RN documented in this encounterSumma Health Wadsworth - [facility] Center12-12-2023 History of Present illness Narrative* [...] N/A Colleen Solorio RN * Brandie Clayton RPh - 06/20/2023 10:00 AM EST Images from the original note were not included. [facility] Department of Pharmacy Oncology Pharmacy Medication Education Patient Name: Evan Gill Primary Oncologist: Logan Diagnosis: rectal cancer Evan Gill is a [...] Take 1 Each by mouth once daily. [employer] supplies guzman mitochondrial micronutrients and a smart [...] (15 minute increments) with the patient Serena Mylene Clayton Pager: documented in this encounterSumma Health Wadsworth - Rittman [facility] Center12-12-2023 Miscellaneous Notes* Addendum Note - Brandie Clayton RPh - 06/20/2023 10:00 AM ESTAddended by: BRANDIE CLAYTON on: 06/20/2023 11:35 AM Modules accepted: Orders documented in this encounterSumma Health Wadsworth - [facility] Center12-06-2023 History of Present illness Narrative* Tapan Corona MD - 06/14/2023 3:17 PM EST Images from the original note were not included. PATIENT NAME: Evan Gill CLINIC NO.: [id number] ATTENDING PHYSICIAN: Tapan Corona MD DATE OF [...] Range Status 06/14/2023 8.8 % Final Abs [place] Date Value Ref Range Status 06/14/2023 0.97 [...] do not hesitate to contact me at [phone]. Tapan Corona MD Hematology/Medical Oncology [facility] Giordano spent a total of 30 minutes on the date of the service which included preparing to see the patient, irhx-pq-hjrk patient care, completing clinical documentation, obtaining and/or reviewing separately obtained history, performing a medically appropriate examination, counseling and educating the pat ient/family/caregiver, and ordering medications, tests, or procedures. CC: documented in this encounterSumma Health Wadsworth - [facility] Center12-04-2023 History of Present illness Narrative* [...] Body: Rectal SIGNATURE: RT Josh(R) PATIENT NAME: vEan Gill DATE: June 12, 2023 TIME: 11:44 AM documented in this encounterSumma Health Wadsworth - [facility] Center11-30-2023 History and physical note * Laisha Singer MD - 06/08/2023 1:00 PM [...] 2023 TIME: 12:39 PM documented in this encounterSumma Health Wadsworth - [facility]ittman [facility] Center11-20-2023 History of Present illness Narrative* Del Hudson [...] Del Hudson MD cc: Charles Bazzi DO [address] [place] [id number] No referring provider defined for this encounter. documented in this encounterSumma Health Wadsworth - [facility] Center11-02-2023 Evaluation note* Encounter Date Diagnosis Assessment Notes Treatment Notes Treatment Clinical Notes May, Hypertension (ICD-10 - I10) May, Stress incontinence in female (ICD-10 - N39.3) May, GERD (gastroesophageal reflux disease) (ICD-10 - K21.9) [facility] Other [id number] History of Present illness Narrative* Del Hudson MD - 05/10/2023 12:00 AM EDT [facility] Radiation Oncology Department RADIATION ONCOLOGY - COMPLETION [...] follow-up. Staff Physician Shan Hudson M.D. / TINA :11 PM Electronically Signed cc: Dr. Charles Corona documented in this encounterSumma Health Wadsworth - [facility] Center10-30-2023 History of Present illness Narrative* Del Hudson [...] weeks. Del Hudson MD documented in this encounterSumma Health Wadsworth - [facility]itt[facility] Center10-30-2023 Nurse Note* Brisa Zapata LPN - 05/08/2023 10:59 AM EDT Status: Post-menopausal. 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 T[facility]. She is currently going through radiation treatment five days a week. Oral chemo therapy was stopped due to negative side effects. Patient appears to be doing well, she does speak in a positive tone and doesnt show signs of distress. Apr, Chest pain (ICD-10 - R07.9) Patient did have a stress test done through the [facility], this was normal. Reports after the oral chemotherapy was stopped the chest pain did resolve. We will continue to monitor. Apr, Hyperlipidemia (ICD-10 - E78.5) Blood work ordered for medicare wellness. [facility] Other 10-23-2023 History of Present illness Narrative* [...] Pyridium. Del Hudson MD documented in this encounterSumma Health Wadsworth - [facility]itt[facility] Center10-20-2023 History of Present illness Narrative* Tapan Corona MD - 04/28/2023 2:30 PM EDT Images from the original note were not included. PATIENT NAME: Evan Gill CLINIC NO.: [id number] ATTENDING PHYSICIAN: Tapan Corona MD DATE OF [...] Range Status 04/28/2023 9.9 % Final Abs [place] Date Value Ref Range Status 04/28/2023 0.48 [...] monitoring as part of STACY Echo at [facility] reviewed and was normal. See back in 6 weeks after MRI Thank you for the kind referral. If there are any questions and or concerns please do not hesitate to contact me at [phone]. Tapan Corona MD Hematology/Medical Oncology [facility] Giordano spent a total of 30 minutes on the date of the service which included preparing to see the patient, [id number] patient care, completing clinical documentation, obtaining and/or reviewing separately obtained history, performing a medically appropriate examination, counseling and educating the pat ient/family/caregiver, and ordering medications, tests, or procedures. CC: documented in this encounterSumma Health Wadsworth - [facility] Center10-17-2023 History of Present illness Narrative* Osmany Lee [...] 2023 Time: 1:46 PM documented in this encounterSumma Health Wadsworth - [facility]itt[facility] Center10-16-2023 History of Present illness Narrative* Del Hudson MD - 04/24/2023 11:54 AM EDT Radiation Oncology - On Treatment Review (OTR) Note PATIENT NAME: Evna Gill PATIENT DIAGNOSIS: MRI staged T3c,N+M0- Adenocarcinoma [...] diarrhea. Del Hudson MD documented in this encounterSumma Health Wadsworth - [facility] Center10-06-2023 History of Present illness Narrative* Tapan Corona MD - 04/14/2023 10:19 AM EDT Images from the original note were not included. PATIENT NAME: Evan Gill CLINIC NO.: [id number] ATTENDING PHYSICIAN: Tapan Corona MD DATE OF [...] Range Status 04/14/2023 9.1 % Final Abs [place] Date Value Ref Range Status 04/14/2023 0.42 [...] radiation. Seeing cardiology next week Echo at [facility] reviewed and was normal. She will likely need additional cardiac evaluation and await cardiac eval and will continue XRT fornow for the rectal cancer Of note she also states that she takes testosterone through a photography and prints curator and will await cardiology recs as well in that regards See back in 2 weeks Thank you for the kind referral. If there are any questions and or concerns please do not hesitate to contact me at [phone]. Tapan Corona MD Hematology/Medical Oncology [facility]ass[facility] Giordano spent a total of 30 minutes on the date of the service which included preparing to see the patient, fdae-mp-[id number] patient care, completing clinical documentation, obtaining and/or reviewing separately obtained history, performing a medically appropriate examination, counseling and educating the pat ient/family/caregiver, and ordering medications, tests, or procedures. CC: documented in this encounterSumma Health Wadsworth - [facility] Center10-02-2023 History of Present illness Narrative* Del Hudson [...] treatment. Del Hudson MD documented in this encounterSumma Health Wadsworth - Rittman [facility] Center10-02-2023 Nurse Note* Prachi Gill RN - 04/10/2023 11:12 AM EDT Status: Post-menopausal. Prachi Gill RN documented in this encounterSumma Health Wadsworth - Rittman [facility] Center09-29-2023 Miscellaneous Notes* Telephone Encounter - Colleen Solorio RN - 04/07/2023 4:11 PM EDT There has been a change in treatment plan and pt will no longer need a port. Damaris notified and she will cancel this. Colleen Solorio RN * Telephone Encounter - Damaris Koehler - 04/06/2023 3:36 PM EDT Patient's port has been scheduled in [place] on 04/11. Patient will need a van driver and nurses will call patient with instructions. Patient takes a baby aspirin daily. This should not be an issue but nurses have been notified and may adjust if need. Damaris Koehler * Telephone Encounter - Kristin Martienz - 04/06/2023 2:52 PM EDT Scheduled 04/07 [...] PM EDT Per Venecia, PSS she reports [facility] called to inform they are discharging her today and will not be doing the port or EGD. I spoke w/ [facility] port scheduling with Marleni and she stated they may have a cancellation in [place] on 04/11 but this is still up in the air and she will let me know. If this date will not be available, Iwill call local. Faxed EGD order to Dr. Greene's office. Damaris Koehler * Telephone Encounter - Colleen Solorio RN - 04/05/2023 4:59 PM EDT KK: please sign orders for EGD. If [facility] is not able to do it we will get it scheduled at [place]. Thanks Colleen Solorio RN * Telephone Encounter [...] Thanks Colleen Solorio RN documented in this encounterSumma Health Wadsworth - Rittman [facility] Center09-28-2023 Miscellaneous Notes* Telephone Encounter - Mylene Byers RN - 04/06/2023 3:37 PM EDT You are scheduled for a Port Placement, On 04/11/2023. You are to arrive at 2:00 PM and Report to [facility]: Enter through [place] entrance.Proceed to [...] if they are not done at a [facility] facility. . Furniture Mover Helper/Transportation: How will you be arriving for your procedure? Private car. You will need a responsible adult to accompany you to and from the procedure. If you have any questions, please call [phone] [place] [address] [facility] [place] [address] documented in this encounterSumma Health Wadsworth - Rittman [facility] Center09-28-2023 Progress note Author Agustin Negron [facility] April 06, 2023 12:42pm Note Date/Time April 06, 2023 12:42pm [facility] [address] [place] [id number] Hospitalist Progress Note Signed Patient: Evan Gill MR#: [id number] : 1955 Acct:[id number] Age/Sex: 67 / F Adm Date: 3 Loc: 3T Room: [address] [place] [address] Type: ADM INOo Attending Dr: Agustin Negron [...] Oil 1,000 mg 04/06/23 09:00 04/06/23 08:44 Eucha-3/Fish Oil 1,000 Mg Capsule PO 04/05/24 08:59 [...] 3. Colon cancer The patient follows with [facility], we will consult Hopefully she can be discharged today Documented By: Agustin Negron MD 04/06/23 1240 Signed By: <Electronically signed by Agustin Negron MD> 04/06/23 1242 [facility] Work Phone: 1(400) 270-321009-28-2023 Consult note Author Marcos Rios [facility] April 06, 2023 10:58am Note Date/Time April 06, 2023 10:55am [facility] [address] [place] [address] Cardiology Consult Note Signed Patient: Evan Gill MR#: [id number] : 1955 Acct:[id number] Age/Sex: 67 / F Adm Date: 3 Loc: Room: [address] [place] [address] Type: ADM INOo Attending Dr: Agustin Negron [...] and no additional complaints, except as documented [facility] Medical History (Updated 04/06/23 @ 10:56 by [...] bone health 11/02/18 [History Confirmed 04/05/23] omega 7-rbv-hvk-fish oil 1,000 mg (120 mg-180 mg) capsule [...] x10E3/uL Lymph # (Auto) 2.6 (1.00-4.8) x10E3/uL [place] # (Auto) 0.5 (0.0-0.8) x10E3/uL Eos # [...] signed by MD Marcos Rios> 04/06/23 1058 [facility] Work Phone: 1(991) 111-638909-28-2023 Miscellaneous Notes* Telephone Encounter - Linda Guillen RN - 04/06/2023 12:43 PM EDT Images from the original note were not included. Tapan Corona MD You 6 minutes ago (12:36 PM) Thanks. * Telephone Encounter - Linda Guillen RN - 04/06/2023 11:58 AM EDT Consult received. Dr Corona recommends pt be discharged and f/u next day in clinic. Spoke w/ KAYA Lingcharge entry clerk. Notified him of the above. States [...] request for EGD phoned to KAYA Lingcharge entry clerk on 3T. He will inform the hospitalist. Linda Guillen RN * Telephone Encounter - Tapan Corona [...] for EGD. Pt has been admitted to [facility] for further cardiac workup. Will keep getting updates daily from nursing staff there. Cloleen Solorio RN * Telephone Encounter - Colleen [...] issue being urgent. Pt will go to [facility]. Report called to ER and recent progress notes faxed as well. Colleen Solorio RN documented in this encounterSumma Health Wadsworth - [facility]itt[facility] Center09-27-2023 History and physical note Author Jordan Hare [facility] April 05, 2023 8:54pm Note Date/Time April 05, 2023 8:54pm [facility] [address] [place] [address] Hospitalist H&P Signed Patient: Evan Gill MR#: [id number] : 1955 Acct:[id number] Age/Sex: 67 / F Adm Date: 3 Loc: 3T Room: [address] [place] [address] Type: ADM INOo Attending Dr: Jordan aHre DO Copies to: DO Jordan Carrillo, ~ HPI DATE OF EXAMINATION: 04/05/23 [...] cancer that she sees Dr. Houser at [facility] oncology. Recently has switched her PPI [...] negative unless noted below or in HPI [facility] Medical History (Updated 04/05/23 @ 18:11 by [...] bone health 11/02/18 [History Confirmed 04/05/23] omega 2-yoz-hcg-fish oil 1,000 mg (120 mg-180 mg) capsule [...] % (Auto) 38.8 % (.) 04/05/23 13:24 [place] % (Auto) 7.5 % (.) 04/05/23 13:24 Eos % (Auto) 1.1 % (.) 04/05/23 13:24 Baso % (Auto) 0.7 % (.) 04/05/23 13:24 Nucleat RBC Rel Count 0.1 /100 WBC (0-0.5) 04/05/23 13:24 Neut # (Auto) 3.4 x10E3/uL (1.8-7.7) 04/05/23 13:24 Lymph # (Auto) 2.6 x10E3/uL (1.00-4.8) 04/05/23 13:24 [place] # (Auto) 0.5 x10E3/uL (0.0-0.8) 04/05/23 13:24 [...] 2 Documented By: Jordan Hare DO 04/05/23 47 Signed By: <Electronically signed by Jordan Hare DO> 04/05/232053 [facility] Work Phone: 1(216) 741-219809-25-2023 Miscellaneous Notes* Telephone Encounter - Colleen Solorio [...] comply. Colleen Solorio RN documented in this encounterSumma Health Wadsworth - [facility] Center09-25-2023 Nurse Note* Prahci Gill RN - 04/03/2023 12:02 PM EDT Status: Post-menopausal. Prachi Gill RN documented in this encounterSumma Health Wadsworth - [facility]itt[facility] Center09-25-2023 History of Present illness Narrative* Del Hudson MD - 04/03/2023 11:52 AM EDT Radiation Oncology - On Treatment Review (OTR) Note PATIENT NAME: Evna Gill PATIENT DIAGNOSIS: MRI staged T3c,N+M0- Adenocarcinoma [...] outlined. Del Hudson MD documented in this encounterSumma Health Wadsworth - [facility]itt[facility] Center09-13-2023 Nurse Note* Prachi Gill RN - 03/22/2023 3:42 PM EDT Radiation Therapy - Patient Education Note PATIENT NAME: Evan Gill PATIENT March 22, 2023 [facility] FACILITY/LOCATION: [facility], [facility]1983 READINESS TO LEARN Cognitive Ability: Alert and [...] need for social work, van service, and flux core welder. Pt haschosen to refuse flux core welder eval at this time. Signed by: Prachi Gill RN documented in this encounterSumma Health Wadsworth - Rittman [facility] Center09-13-2023 History of Present illness Narrative* Tapan Corona MD - 03/22/2023 2:42 PM EDT Images from the original note were not included. PATIENT NAME: Evan Gill CLINIC NO.: [id number] ATTENDING PHYSICIAN: Tapan Corona MD DATE OF [...] do not hesitate to contact me at [phone]. Tapan Corona MD Hematology/Medical Oncology [facility] Ghassan Giordano spent a total of 30 minutes on the date of the service which included preparing to see the patient, [id number] patient care, completing clinical documentation, obtaining and/or reviewing separately obtained history, performing a medically appropriate examination, counseling and educating the pat ient/family/caregiver, and ordering medications, tests, or procedures. CC: documented in this encounterSum[facility] History of Present illness Narrative* Colleen Solorio [...] Yes Pt has picked up medication from [facility] pharmacy DRUG-SPECIFIC EDUCATION: 1.) Verified patient knows [...] teaching topics as needed. Colleen Solorio, RN Professional Nursing Tutor Pre Chemo Patient identified by name and date of . YES Confirmed date and time for chemotherapy ? YES Other appointments (labs, imaging) discussed? 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 Colleen Solorio, RN documented in this encounterSumma Health [facility]09-13-[facility]23 History of Present illness Narrative* Del Hudson MD - 03/22/2023 12:00 AM EDT EVAN GILL [id number] 03/22/2023 [facility] Department of Radiation Oncology Treatment Planning Note [...] Hudson M.D. 1:12 AM documented in this encounterSumma Health Wad[facility]09-12-2023 Miscellaneous Notes* Telephone Encounter - Colleen Solorio [...] Thanks Colleen Solorio RN documented in this encounterSumma Health Wad[facility]09-07-2023 History and physical note * [...] 2023 TIME: 12:45 PM documented in this encounterSumma Health Wad[facility]09-06-2023 Miscellaneous Notes* [facility] - Joel Enciso synthetic cloth binding cutter - 03/15/2023 12:00 PM EDT Radiology Service [...] 15, 2023 1:03 PM documented in this encounterSumma Health W[facility]09-06-2023 Progress note* [facility] - Joel Enciso [...] NUNU Vivar March 15, 2023 1:03 PM [facility]08-30-2023 History of Present illness Narrative* Del Hudson [...] GI: See HPI : urination is normal GRANITE CUTTER APPRENTICE: denies abnormal vaginal bleeding, no vaginal discharge, no breast mass/tenderness SKIN: no rash NEURO: no numbness or paresthesias and no weakness of the extremities As noted in HPI GRANITE CUTTER APPRENTICE: Pain: 0 on a 0-10 pain scale. [...] noted Hematologic: No signs of active bleeding. GRANITE CUTTER APPRENTICE: Deferred Rectal: Deferred RADIOLOGY/LABORATORY DATA: see HPI [...] defined for this encounter. documented in this encounterSumma Health Wadsworth [facility]08-29-2023 Miscellaneous Notes* Telephone Encounter - Colleen Holland - 03/07/2023 9:42 AM EDT Patient is scheduled for 03/15 when patient is here tommorow. * Telephone Encounter - Brisa Zapata LPN - 03/07/2023 8:03 AM EDT MRI pelvis order pending your approval. Brisa Zapata LPN documented in this encounterSumma Health Wad[facility]08-01-2023 Evaluation note* Encounter Date Diagnosis Assessment Notes Treatment Notes Treatment Clinical Notes Feb, Change in bowel habits (ICD-10 - R19.4) Feb, Flatulence (ICD-10 - R14.3) Feb, Bloody stools (ICD-10 - K92.1) [facility] 04-24-2023 Evaluation note* Encounter Date Diagnosis Assessment Notes Treatment Notes Treatment Clinical Notes Oct, Anxiety and depression (ICD-10 - F41.8) Patient appears to be going great on the above medication. 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 Oct, Hypertension (ICD-10 - I10) The patients blood pressure was WNL upon check in. Therefore, patient is to continue with the above medication. Oct, Primary osteoarthritis of right knee (ICD-10 - M17.11) Patient is scheduled to have right knee replacement with Dr. Lemon 12/07/22, patient will be having PST done in [place] in two weeks. Patient did get cardiac clearance from Dr. Calhoun. In my medical opinion, the patient is clear to proceed with surgery. [facility] 03-27-2023 Evaluation note* Encounter Date Diagnosis [...] this. We will send a referral to [facility] for the clearance closer to her surgery date. Sep, Atrial fibrillation (ICD-10 - I48.91) Referral intiated to [facility]. Patient had stress test in 2016 with at maximum exercise had a burst of atrial fibrillation. Placed on aspirin and followed by cardiology. We will have cardiology clearance prior to her upcoming knee replacement surgery. [facility] Other 02-27-2023 Evaluation note* Encounter Date Diagnosis Assessment Notes Treatment Notes Treatment Clinical Notes Aug, Anxiety and depression (ICD-10 - F41.8) [facility] 02-09-2023 Evaluation note* Encounter Date Diagnosis [...] sterile technique. Patient tolerated the injection well. [facility] Other 02-08-2023 Evaluation note* Encounter Date Diagnosis Assessment Notes Treatment Notes Treatment Clinical Notes Aug, Anxiety and depression (ICD-10 - F41.8) [facility] 11-09-2022 Evaluation note* Encounter Date Diagnosis Assessment Notes Treatment Notes Treatment Clinical Notes May, Bilateral primary osteoarthritis of knee (ICD-10 - M17.0) May, Other After consent was obtained, the right knee was injected with Zilretta using sterile technique. Patient tolerated the injection well. Follow-up in 3 months. [facility] Other 11-02-2022 Evaluation note* Encounter Date Diagnosis [...] week for her right knee Zilretta injection. [facility] Other 10-12-2022 Evaluation note* Encounter Date Diagnosis Assessment Notes Treatment Notes Treatment Clinical Notes Apr, Stress incontinence in female (ICD-10 - N39.3) Apr, GERD (gastroesophageal reflux disease) (ICD-10 - K21.9) [facility] 08-05-2022 Evaluation note* Encounter Date Diagnosis [...] injection well. 6. Follow up 3 months [facility] Other Chief complaint Narrative - ReportedEVAN GILL is being seen for a consultation for Charles Bazzi- POC R Knee replacement 12/07/22.- [facility] [address] DO Work Phone: [place] [address] Orthopedic Consult Note Signed Patient: Evan Gill MR#: [id number] : 1955 Acct:[id number] Age/Sex: 68 / F Adm Date: 4 Loc: ER Room: Type: [facility] ER Attending Dr: Copies to: Charles Bazzi,DO [...] negative unless noted below or in HPI [facility] Medical History (Updated 05/23/24 @ 10:23 by [...] health maintenance 11/02/18 [History Confirmed 05/23/24] omega 5-dqs-ynx-fish oil 1,000 mg (120 mg-180 mg) capsule (Fish Oil) 1 cap PO DAILY 11/02/18 [History Confirmed 05/23/24] lactobacillus comb no.10 20 billion cell capsule (Probiotic) 20,000 mmu cells PODAILY 03/06/23 [History Confirmed 05/23/24] ondansetron 8 mg disintegrating tablet 8 mg PO Q8H PRN Nausea 04/05/23 [History Confirmed 05/23/24] denosumab 60 mg/mL subcutaneous syringe (Prolia) 60 mg subcut [id number] 06/26/23 [History Confirmed 05/23/24] vortioxetine 10 mg [...] tissue swelling but no obvious fluctuance noted. [place] normal. AIN, PIN, radial, median, ulnar nerves [...] % (Auto) 81.9, Lymph % (Auto) 9.0, [place] % (Auto) 7.4, Eos % (Auto) 1.1, Baso % (Auto) 0.6, Nucleat RBC Rel Count 0.0, Neut # (Auto) 8.5 H, Lymph # (Auto) 0.9 L, [place] # (Auto) 0.8, Eos # (Auto) 0.1, [...] Haji DO 05/22/241811 Signed By: 05/23/[address] [facility] Author Jorge A Haji [facility] Note Date/Time May 23, 2024 1:11pm [facility] [address] [place] [address] Orthopedic Consult Note Signed Patient: Evan Gill MR#: [id number] : 1955 Acct:[id number] Age/Sex: 68 / F Adm Date: 4 Loc: ER Room: Type: [facility] ER Attending Dr: Copies to: DO Jorge [...] negative unless noted below or in HPI [facility] Medical History (Updated 05/23/24 @ 10:23 by [...] health maintenance 11/02/18 [History Confirmed 05/23/24] omega 4-ctg-htn-fish oil 1,000 mg (120 mg-180 mg) capsule (Fish Oil) 1 cap PO DAILY 11/02/18 [History Confirmed 05/23/24] lactobacillus comb no.10 20 billion cell capsule (Probiotic) 20,000 mmu cells PODAILY 03/06/23 [History Confirmed 05/23/24] ondansetron 8 mg disintegrating tablet 8 mg PO Q8H PRN Nausea 04/05/23 [History Confirmed 05/23/24] denosumab 60 mg/mL subcutaneous syringe (Prolia) 60 mg subcut [id number] 06/26/23 [History Confirmed 05/23/24] vortioxetine 10 mg [...] tissue swelling but no obvious fluctuance noted. [place] normal. AIN, PIN, radial, median, ulnar nerves [...] % (Auto) 81.9, Lymph % (Auto) 9.0, [place] % (Auto) 7.4, Eos % (Auto) 1.1, Baso % (Auto) 0.6, Nucleat RBC Rel Count 0.0, Neut # (Auto) 8.5 H, Lymph # (Auto) 0.9 L, [place] # (Auto) 0.8, Eos # (Auto) 0.1, [...] Signed By: <Electronically signed by Jorge A aHji DO> 05/23/24 1311 [facility] Work Phone: Discharge summary Author Jm Trujillo [facility] October 28, 2023 12:30pm Note Date/Time October 28, 2023 12: 27pm [facility] [address] [place] [address] Discharge Summary Signed Patient: Evan Gill MR#: [id number] : 1955 Acct:[id number] Age/Sex: 68 / F Adm Date: 4 Loc: 4N Room: [address] [place] [address]: Jm Trujillo DO Copies to: DO Laisha Carrilol MD, DO~ Providers Date of Discharge: 10/28/23 [...] assisted low anterior resection for rectal cancer [facility], awaiting plans for ileostomy takedownin the next month or so. Presentation to hospital with intractable abdominal pain when the iliostomy suddeny stopped having any output. Summary Hospital Course Hospital course: This is a 68-year-old woman with a history of rectal cancer. Several months agoshe has undergone a laparoscopic assisted low anterior resection with rectal cancer at the [facility]. She has had a diverting loop ileostomy [...] itself. The ER physicians did contact the [facility] because her colorectal surgeon is based there but there were no beds available at that hospital. Therefore she was admitted to the hospital here to [facility]. She was seen in consultation by [...] 1 TABLET BY MOUTH ONCE DAILY omega 1-sdb-ioi-fish oil [Fish Oil] 1,000 mg (120 mg-180 [...] Prolia 60 mg/mL Syringe 60 mg SUBCUT [id number] Patient Comments: Last received in November 2022 [...] % (Auto) 66.8, Lymph % (Auto) 13.6, [place] % (Auto) 11.9, Eos % (Auto) 7.1, Baso % (Auto) 0.6, Nucleat RBC Rel Count 0.1, Neut # (Auto) 3.8, Lymph # (Auto) 0.8 L, [place] # (Auto) 0.7, Eos # (Auto) 0.4, Baso # (Auto) 0.0, PHA Creatinine Clear 61.83, Sodium 141, Potassium 3.9, Chloride 104, Carbon Dioxide 31.8 H, Anion Gap 9.1, BUN 11, Creatinine 0.60, Est GFR (CKD-EPI) > 60.0 Documented By: Jm Trujillo, 1217 Signed By: <Electronically signed by Jm Trujillo, > 10/28/23 1230 [facility] Work Phone: evaluation noteNo assessment information available [facility] Work Phone: evaluation noteNo InformationNort [employer] Other evaluation note* Diagnosis Rectal adenocarcinoma (HCC)- Primary Malignant neoplasm of rectum [facility] Diagnosis Rectal adenocarcinoma (HCC)- Primary Malignant neoplasm of rectum Rectal mass- Primary Other symptoms involving digestive system [facility]* Diagnosis Rectal cancer (HCC)- Primary Malignant neoplasm of rectum [facility]* Diagnosis Rectal cancer (HCC)- Primary Malignant neoplasm of rectum documented [facility] this [facility]* Diagnosis Rectal adenocarcinoma (HCC)- Primary Malignant neoplasm of rectum documented [facility]* Diagnosis Rectal adenocarcinoma (HCC)- Primary Malignant neoplasm of rectum [facility]* Diagnosis Onset Date Resolution Status Chest pain acute [facility] Work Phone: evaluation note* Diagnosis Onset Date Resolution Status Chest pain acute Colorectal cancer acute [facility] Work Phone: evaluation note* Diagnosis Rectal cancer (HCC)- Primary Malignant neoplasm of rectum Dyspepsia Dyspepsia and other specified disorders of function of stomach documented in this encounter [facility] note* Diagnosis Rectal adenocarcinoma (HCC)- Primary Malignant neoplasm of rectum documented in this encounter [facility] note* Diagnosis Rectal cancer (HCC)- Primary Malignant neoplasm of rectum documented in this encounter [facility] note* Diagnosis Rectal adenocarcinoma (HCC)- Primary Malignant neoplasm of rectum documented in this encounter [facility] note* Diagnosis Muscle soreness- Primary Mylagia and myositis, unspecified documented in this encounter [facility] note* Diagnosis Rectal cancer (HCC)- Primary Malignant neoplasm of rectum documented in this encounter [facility] note* Diagnosis Dysuria- Primary documented in this encounter [facility] note* Diagnosis Dysuria- Primary Rectal adenocarcinoma (HCC) Malignant neoplasm of rectum documented in this encounter [facility] note* Diagnosis Muscle soreness- Primary Mylagia and myositis, unspecified documented in this encounter [facility] note* Diagnosis Rectal adenocarcinoma (HCC)- Primary Malignant neoplasm of rectum documented in this encounter [facility] note* Diagnosis Rectal adenocarcinoma (HCC)- Primary Malignant neoplasm of rectum documented in this encounter [facility] note* Diagnosis Screen for colon cancer- Primary Special screening for malignant neoplasms, colon Rectal cancer (HCC) Malignant neoplasm of rectum documented in this encounter [facility] note* Diagnosis Rectal cancer (HCC) Malignant neoplasm of rectum documented in this encounter [facility] note* Diagnosis Rectal cancer (HCC)- Primary Malignant neoplasm of rectum documented in this encounter [facility] note* Diagnosis Rectal cancer (HCC)- Primary Malignant neoplasm of rectum documented in this encounter [facility] note* Diagnosis Other chest pain- Primary Essential hypertension Unspecified essential hypertension Colorectal cancer (CMS/HCC) Malignant neoplasm of colon, unspecified site BMI 24.0-24.9, adult History of atrial fibrillation Personal history of other diseases of circulatory system documented in this encounter [facility] Work Phone: Evaluation note* Diagnosis Pre-op examination- Primary Preoperative examination, unspecified Atrial fibrillation, unspecified type (HCC) Essential hypertension Unspecified essential hypertension Hyperlipidemia, unspecified hyperlipidemia type Gastroesophageal reflux disease without esophagitis Esophageal reflux Other iron deficiency anemia Rectal cancer (HCC) Malignant neoplasm of rectum Mixed anxiety depressive disorder Dysthymic disorder Rectal cancer (HCC) Malignant neoplasm of rectum [facility]* Diagnosis Rectal cancer (HCC)- Primary Malignant neoplasm of rectum documented in this encounter [facility] note* Diagnosis Follow-up examination after colorectal surgery- Primary Follow-up examination, following other surgery documented in this encounter [facility] note* Diagnosis Onset Date Resolution Status SBO (small bowel obstruction) acute [facility] Work Phone: evaluation note* Diagnosis Onset Date Resolution Status Ileostomy status acute Rectal cancer acute SBO (small bowel obstruction) acute [facility] Work Phone: evaluation note* Diagnosis History of rectal cancer Personal history of malignant neoplasm of rectum, rectosigmoid junction, and anus documented in this encounter [facility] note* Diagnosis Muscle soreness- Primary Mylagia and myositis, unspecified documented in this encounter [facility] note* Diagnosis History of rectal cancer- Primary Personal history of malignant neoplasm of rectum, rectosigmoid junction, and anus [facility]* Diagnosis Onset Date Resolution Status SBO (small bowel obstruction) resolved [facility] Work Phone: evaluation note* Diagnosis Onset Date Resolution Status SBO (small bowel obstruction) resolved Acute UTI acute Partial small bowel obstruction acute [facility] Work Phone: evaluation note* Diagnosis Onset Date Resolution Status Ileostomy status acute SBO (small bowel obstruction) resolved Abdominal pain acute Acute UTI acute Complete small bowel obstruction acute Partial small bowel obstruction acute Vomiting acute [facility] Work Phone: Evaluation note* Diagnosis Pain in right hip- Primary Pain in joint, pelvic region and thigh documented in this encounter [facility] note* Diagnosis Follow-up examination after colorectal surgery- Primary Follow-up examination, following other surgery documented in this encounter [facility] note* Diagnosis Rectal adenocarcinoma (HCC)- Primary Malignant neoplasm of rectum Follow-up examination after colorectal surgery- Primary Follow-up examination, following other surgery documented in this encounter [facility] note* Diagnosis Follow-up examination after colorectal surgery- Primary Follow-up examination, following other surgery Rectal cancer (HCC) 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 documented in this encounter [facility] note* Diagnosis History of rectal cancer- Primary Personal history of malignant neoplasm of rectum, rectosigmoid junction, and anus documented in this encounter [facility] note* Diagnosis Rectal adenocarcinoma (HCC) Malignant neoplasm of rectum Pre-op examination- Primary Preoperative examination, unspecified Atrial fibrillation, unspecified type (HCC) Essential hypertension Unspecified essential hypertension Hyperlipidemia, unspecified hyperlipidemia type Gastroesophageal reflux disease without esophagitis Esophageal reflux Other iron deficiency anemia Rectal cancer (HCC) Malignant neoplasm of rectum Mixed anxiety depressive disorder Dysthymic disorder documented in this encounter [facility] note* Diagnosis Pre-op examination- Primary Preoperative examination, unspecified Atrial fibrillation, unspecified type (HCC) Essential hypertension Unspecified essential hypertension Hyperlipidemia, unspecified hyperlipidemia type Gastroesophageal reflux disease without esophagitis Esophageal reflux Other iron deficiency anemia Rectal cancer (HCC) Malignant neoplasm of rectum Mixed anxiety depressive disorder Dysthymic disorder Rectal adenocarcinoma (HCC)- Primary Malignant neoplasm of rectum documented in this encounter [facility] note* Diagnosis Rectal adenocarcinoma (HCC)- Primary Malignant neoplasm of rectum documented in this encounter [facility] note* Diagnosis Pre-op examination- Primary Preoperative examination, [...] junction, and anus documented in this encounter [facility] note* Diagnosis Onset Date Resolution Status Admit Date Cellulitis of right middle finger acute May 30, 2 024 11:20am [facility] Work Phone: Evaluation note* Diagnosis Pre-op [...] neoplasm of rectum documented in this encounter [facility] note* Diagnosis Pre-op examination- Primary Preoperative examination, unspecified Atrial fibrillation, unspecified type (HCC) Essential hypertension Unspecified essential hypertension Hyperlipidemia, unspecified hyperlipidemia type Gastroesophageal reflux disease without esophagitis Esophageal reflux Other iron deficiency anemia Rectal cancer (HCC) Malignant neoplasm of rectum Mixed anxiety depressive disorder Dysthymic disorder Rectal adenocarcinoma (HCC)- Primary Malignant neoplasm of rectum documented in this encounter [facility] note* Diagnosis Pre-op examination- Primary Preoperative examination, unspecified Atrial fibrillation, unspecified type (HCC) Essential hypertension Unspecified essential hypertension Hyperlipidemia, unspecified hyperlipidemia type Gastroesophageal reflux disease without esophagitis Esophageal reflux Other iron deficiency anemia Rectal cancer (HCC) Malignant neoplasm of rectum Mixed anxiety depressive disorder Dysthymic disorder Low anterior resection syndrome documented in this encounter [facility] note* Diagnosis Pre-op examination- Primary Preoperative examination, unspecified Atrial fibrillation, unspecified type (HCC) Essential hypertension Unspecified essential hypertension Hyperlipidemia, unspecified hyperlipidemia type Gastroesophageal reflux disease without esophagitis Esophageal reflux Other iron deficiency anemia Rectal cancer (HCC) Malignant neoplasm of rectum Mixed anxiety depressive disorder Dysthymic disorder Muscle spasm- Primary Spasm of muscle Low anterior resection syndrome documented in this encounter [facility] note* Diagnosis Pre-op examination- Primary Preoperative examination, unspecified Atrial fibrillation, unspecified type (HCC) Essential hypertension Unspecified essential hypertension Hyperlipidemia, unspecified hyperlipidemia type Gastroesophageal reflux disease without esophagitis Esophageal reflux Other iron deficiency anemia Rectal cancer (HCC) Malignant neoplasm of rectum Mixed anxiety depressive disorder Dysthymic disorder History of rectal cancer Personal history of malignant neoplasm of rectum, rectosigmoid junction, and anus Rectal cancer (HCC) Malignant neoplasm of rectum documented in this encounter [facility] note* Diagnosis Pre-op examination- Primary Preoperative examination, unspecified Atrial fibrillation, unspecified type (HCC) Essential hypertension Unspecified essential hypertension Hyperlipidemia, unspecified hyperlipidemia type Gastroesophageal reflux disease without esophagitis Esophageal reflux Other iron deficiency anemia Rectal cancer (HCC) Malignant neoplasm of rectum Mixed anxiety depressive disorder Dysthymic disorder Muscle spasm- Primary Spasm of muscle Low anterior resection syndrome- Primary documented in this encounter [facility] note* Diagnosis Pre-op examination- Primary Preoperative examination, [...] junction, and anus [facility] Diagnosis Pre-op examination- Primary Preoperative examination, unspecified Atrial fibrillation, unspecified type (HCC) Essential hypertension Unspecified essential hypertension Hyperlipidemia, unspecified hyperlipidemia type Gastroesophageal reflux disease without esophagitis Esophageal reflux Other iron deficiency anemia Rectal cancer (HCC) Malignant neoplasm of rectum Mixed anxiety depressive disorder Dysthymic disorder Encounter for follow-up surveillance of rectal cancer- Primary Unspecified follow-up examination Low anterior resection syndrome documented [facility] encounter [facility] [facility] Author Tomi Greene [facility] Note Date/Time September 18, 2024 10: 43am [facility] [address] [place] [address] Gastroenterology H&P Signed Patient: Evan Gill MR#: [id number] : 1955 Acct:[id number] Age/Sex: 69 / F Adm Date: 5 Loc: Room: Type: [facility] Attending Dr: Tomi Greene MD Copies to: Charles Bazzi,DO Tomi Greene MD~ Date of Service: 09/18/2024 HISTORY & PHYSICAL: Patient's history with special attention to the cardiovascular, pulmonary systems and the current problem was reviewed with the patient immediately prior to the procedure. Present medications and doses reviewed in the EMR. Allergies and pertinent laboratory tests were also reviewedat this time in the EMR. The physical examination, as below, was then performed. Indication, assessment and HPI: 69-year-old female with history of rectal cancers/p LAR here for surveillance colonoscopy Family history of GI malignancy? No PHYSICAL EXAMINATION General appearance: NAD Skin: No jaundice Head: NC/AT Eyes: Anicteric Neck: Supple Lungs: Normal respiratory effort, no use of accessory muscles Abdomen: nondistended Neuro: Ox3. REVIEW OF SYSTEMS Constitutional: Denies malaise, fevers Cardiovascular: Denies chest pain, palpitations Respiratory: Denies shortness of breath, wheezing Gastrointestinal: As per HPI Genitourinary: Denies dysuria, polyuria Musculoskeletal: Denies joint swelling, joint stiffness Neurological: Denies confusion, numbness, tingling Endocrine: Denies fatigue Written informed consent obtained from the patient. Risks (including but not limited to perforation, infection, bloating, bleeding, need for emergent surgeryand loss of life), benefits and alternatives explained and questions answered. The patient verbalized understanding. Based on history patient is an appropriate candidate for the procedure. Tomi Greene M.D. Documented By: Tomi Greene MD 09/18/24 1041 Signed By: <Electronically signed by Tomi Greene MD> 09/18/24 1043 [facility] Work Phone: History general Narrative - Reported* Type Description Date Medical History colonoscopy 2005 Medical History 2005 EKG done Medical History 2008 pelvic exam done - follows with her [facility] Medical History 2008 mammogram done - follows wi th her [facility] Medical History 2004 CT scan Medical History [...] Nena alarcon 06/22/15 Hospitalization History see above [facility] Other History general Narrative - Reported* Type Description Date Medical History colonoscopy 2005 Medical History 2005 EKG done Medical History 2009 pelvic exam done - follows with her [facility] Medical History 2008 mammogram done - follows wi th her [facility] Medical History 2004 CT scan Medical History [...] Nena alarcon 06/22/15 Hospitalization History see above [facility] Other History general Narrative - Reported* Type Description Date Medical History colonoscopy 2004 Medical History 2004 EKG done Medical History 2008 pelvic exam don e - follows with her [facility] Medical History 2008 mammogram done - follows wi th her [facility] Medical History 2004 CT scan Medical History [...] History see above Hospitalization History Chest Pain [facility] 04/05/23- 04/06/23 [facility] Other History of Present illness Narrative* Patient [...] follow in the future on as-needed basis -[facility] [facility] DO Work Phone: Hospital Discharge instructions Additional Instructions Resume your Keflex and Bactrim antibiotic upon completion of outpatient IV therapy. You have been scheduled for for vancomycin antibiotic infusions.[facility] Work Phone: Hospital Discharge instructions Additional Instructions [facility] OP INSTRUCTIONS Take prescribed pain medication as directed and as needed to control your post- operative pain. -In addition to the prescribed medication, you may take ibuprofen (Advil, Motrin) or naproxen (Aleve/Naprosyn) to help control pain and decrease swelling. -DO NOT TAKE ibuprofen/Naprosyn/naproxen if you have a history of bleeding ulcer, are taking anticoagulation medication (Coumadin/warfarin, Eliquis, Xarelto, Plavix, Lovenox), if you have had a history of gastric bypass surgery, or if you have a history of kidney disease. Elevate the operative area as much as possible, using at least 2-3 pillows, keeping the hand higher than the elbow. Keep ice at the operative area as much as possible. It takes longer than 20 minutes for the cold to penetrate the bandages, so leave the ice bag or cold pack in place until the ice melts, then it is time to change to a fresh ice bag or cold pack. -Elevation and ice help to lessen the swelling post-operatively which helps to lessen pain so that you will need to take less pain medication, as well as maintaining better range of motion and function of your hand (more swelling, less movement). You may wiggle your fingers, bending, flexing, and move them to decrease stiffness. You may use your hands for light activities of 2-5 lbs. This is lifting your coffee cup, using your silverware, and typing on a computer or tablet. -Do NOT perform strenuous lifting or lift greater than 10 lbs until 4-6 weeks after surgery to minimize exacerbation of pain at the surgery site. You may remove your dressing on the third day after surgery, and get your surgical incision wet in the shower or when washing your hands with soap and water. -DO NOT soak your incision or submerge it under standing water such as dishwater or bathtub. -DO NOT apply perfumed moisturizers or ointments unless otherwise instructed by your physician. -Washing your incision gently with soap and water on a daily basis, helps to rid your skin of bacteria and decrease the risk of wound infections. -After showering or washing your hands, pat the incision dry, and keep covered with a clean dry gauze bandage. -You may apply Bacitracin, Neosporin, or generic triple antibiotic ointment to incision if you would like -Please use the aluminum or plastic splint support to the DIP joint for the right long finger during activities and when sleeping at nighttime - Patient was counseled on bone healing protocol including smoking cessation/ avoidance of nicotine products, appropriate weight bearing restrictions and limitations, and vitamin supplementation to aid in bone and fracture healing/ strengthening. Patient was counseled to take: 1) Vitamin C 500 mg PO Q daily 2) Calcium 500-600 mg/ Vitamin D 200-400 Units PO Q TID Take antibiotics as directed to decrease risk of infection after surgery [facility] Work Phone: Reason for referral (narrative)* Outpatient Procedure (Routine) - Pending Review Specialty Diagnoses / Procedures Referred By Shelly toscano Referred To Contact [facility] Diagnoses Dyspepsia Procedures EGD DIAGNOSTIC ESOPHAGOGASTRODUODENOSC OPY TRANSORAL DIAGNOSTIC Tapan Corona MD [address] [place] [id number] [facility] [address] [place] [address] Referral ID Status Reason Start Date Expiration Date Visits Requested Visits Authorized [id number] Pending Review Auto-Generat ed Referral 04/06/2023 04/05/2024 1 1 * Consult, Test, Treat (Routine) - Authorized Specialty Diagnoses / Procedures Referred By Contac t Referred To Contact Gastroenterology Diagnoses Rectal cancer (HCC) Procedures CONSULT TO GASTROENTEROLOGY OFFICE/OUTPATIENT [facility] 60-74 MINUTES Naheed Elias PA-C [address] [place] [address] [place] [address] Referral ID Status Reason Start Date Expiration Date Visits Requested Visits Authorized [id number] Authorized PCP Requested Referral 04/05/2023 04/04/2024 1 1 [facility] for referral (narrative)* Outpatient Procedure (Routine) - Closed Specialty Diagnoses / Procedures Referred By Contac t Referred To Contact [facility] Diagnoses Rectal mass Procedures SIGMOIDOSCOPY SIGMOIDOSCOPY FLX DX W/COLLJ [place] [address] [facility] [place] [id number] [facility] [place] [id number] Referral ID Status Reason Start Date Expiration Date V isits Requested Visits Authorized [id number] Closed Auto-Generate d Referral 03/14/2023 03/14/2024 1 1 [facility] for referral (narrative)* Outpatient Procedure (Routine) - Closed Specialty Diagnoses / Procedures Referred By Contac t Referred To Contact [facility] Diagnoses Rectal cancer (HCC) Procedures SIGMOIDOSCOPY SIGMOIDOSCOPY FLX DX W/COLLJ SPEC BR/WA IF PFRMD Patricia [facility] [address] [address] [address] Referral ID Status Reason Start Date Expiration Date V isits Requested Visits Authorized [id number] Closed Auto-Generate d Referral 05/23/2023 05/23/2024 1 1 [facility] for referral (narrative)* Consultation (Routine) - Authorized Specialty Diagnoses / Procedures Referred By Contac t Referred To Contact Cardiology Diagnoses Other chest pain Essential hypertension Procedures Follow Up In Cardiology Marcos Rios MD [address] [facility] [address] [place] [address] Marcos Rios MD [address] [facility] [address] [place] [address] Referral ID Status Reason Start Date Expiration Date V isits Requested Visits Authorized [id number] Authorized 07/25/2023 07/24/2024 1 1 [facility] Work Phone: [facility] for visit Narrative* Outpatient Procedure (Routine) - Closed Specialty Diagnoses / Procedures Referred By Contac t Referred To Contact [facility] Diagnoses Rectal mass Procedures SIGMOIDOSCOPY SIGMOIDOSCOPY FLX DX W/COLLJ SPEC BR/[place] [address] [place] [address] [facility] [address] [address] Referral ID Status Reason Start Date Expiration Date V isits Requested Visits Authorized [id number] Closed Auto-Generate d Referral 03/14/2023 03/14/2024 1 1 [facility] for visit Narrative* Outpatient Procedure (Routine) - Closed Specialty Diagnoses / Procedures Referred By Contac t Referred To Contact [facility] Diagnoses Rectal cancer (HCC) Procedures SIGMOIDOSCOPY SIGMOIDOSCOPY FLX DX W/COLLJ SPEC BR/WA IF PFRMD Patricia [facility] [address] [address] [facility] [address] [place] [address] [address] Referral ID Status Reason Start Date Expiration Date V isits Requested Visits Authorized [id number] Closed Auto-Generate d Referral 05/23/2023 05/23/2024 1 1 [facility] Summary Purpose Family History No Family History Records Found Relationship Condition Age at Onset Recorded Date/T haydee father Coronary artery disease Unknown Arthritis Unknown Hypertension Unknown Not Specified Malignant neoplasm of lung Unknown Unknown Family Member Name Dates Details Family history of CABG: Billy er(V17.49, Z82.49) Status:Active Family history of chronic [...] Heart disease Unknown grandparent Unknown mother Unknown Relationship Condition Age at Onset Recorded Date/T haydee father Coronary artery disease Unknown Arthritis Unknown Hypertension Unknown Unknown mother Arthritis Unknown Malignant neoplasm of lung Unknown grandparent Heart disease Unknown grandparent Diabetes mellitus Unknown Heart disease Unknown grandparent Unknown Relationship Condition Age at Onset Recorded Date/T haydee father Coronary artery disease Unknown Arthritis Unknown Hypertension Unknown Unknown mother Arthritis Unknown Malignant neoplasm of lung Unknown grandparent Unknown Heart disease Unknown Diabetes mellitus Unknown Advance Directives No Advanced Directives Records [...] Cellulitis of right finger May 11:11am ER [facility] RT MIDDLE FINGER [...] Cellulitis of right finger May 11:11am ER [facility] RT MIDDLE FINGER [...] 1 0:34am Cellulitis of right middle finger Dece er 2023 10:34am Other specified postprocedural states De cember 2023 10:34am Anxiety and depression June 11 12:35pm Colorectal cancer June 11, 2024 1 2:35pm Hyperlipidemia June 11, 2024 1 2:35pm Hypertension June 11, 2024 1 2:35pm Infected finger June 11, 2024 1 2:35pm Infected finger June 25, 2024 8:10am Cellulitis of right middle finger Dece er 2023 8:10am Other specified postprocedural states De cember 2023 8:10am Infected finger July 17, 2024 8: 19am Other specified postprocedural states nuary 2024 8:19am Chief Complaint Admit Date Rt middle finger May 22, 2024 11:48am Rt middle finger May 22, 2024 6:12pm call back May 23, 2024 8:15am L03.011 - Cellulitis of right finger Nov ember 2023 11:11am ER [facility] RT MIDDLE FINGER PAIN WX Novembe r 2023 11:20am I&D May 31, 2024 11:01am I&D May 31, 2024 2:30pm E78.5 June 04, 2024 9:14am 1 WK POST OP June 11, 2024 1 0:34am 6 month f/u June 11, 2024 1 2:35pm 2 WEEKS June 25, 2024 8:10am 2-3 WEEKS July 17, 2024 8: 19am 4 WEEKS August 14, 2024 1 2:45pm Reason for Visit Admit Date Infected finger May 30, 2024 11:20am Cellulitis of right middle finger Novemb er 2023 11:20am Infected finger June 11, 2024 1 0:34am Cellulitis of right middle finger Decemb er 2023 10:34am Other specified postprocedural states De cember 2023 10:34am Anxiety and depression June 11 12:35pm [...] 2024 8: 19am Other specified postprocedural states Ja nuary 2024 8:19am Infected finger August 14, 2024 1 2:45pm Other specified postprocedural states Fe bruary 2024 12:45pm Chief Complaint Admit Date call back May 23, 2024 8:15am L03.011 - Cellulitis of right finger May 11:11am ER [facility] RT MIDDLE FINGER PAIN WX Novembe r 2023 11:20am I&D May 31, 2024 11:01am I&D May 31, 2024 2:30pm E78.5 June 04, 2024 9:14am 1 WK POST OP June 11, 2024 1 0:34am 6 month f/u June 11, 2024 1 2:35pm 2 WEEKS June 25, 2024 8:10am 2-3 WEEKS July 17, 2024 8: 19am 4 WEEKS August 14, 2024 1 2:45pm hand pain August 20, 2024 8:01am Chief Complaint Admit Date L03.011 - Cellulitis of right finger May 11:11am ER [facility] RT MIDDLE FINGER PAIN WX Novembe r 2023 11:20am I&D May 31, 2024 11:01am I&D May 31, 2024 2:30pm E78.5 June 04, 2024 9:14am 1 WK POST OP June 11, 2024 1 0:34am 6 month f/u June 11, 2024 1 2:35pm 2 WEEKS June 25, 2024 8:10am 2-3 WEEKS July 17, 2024 8: 19am 4 WEEKS August 14, 2024 1 2:45pm hand pain August 20, 2024 8:01am hand pain August 26, 2024 6:36am Chief Complaint Admit Date 1 WK POST OP June 11, 2024 1 0:34am 6 month f/u June 11, 2024 1 2:35pm 2 WEEKS June 25, 2024 8:10am 2-3 WEEKS July 17, 2024 8: 19am 4 WEEKS August 14, 2024 1 2:45pm hand pain August 20, 2024 8:01am hand pain August 26, 2024 6:36am hand pain August 26, 2024 12:38pm 1 WK POST OP September 04, 2024 2:43pm Reason for Visit Admit Date Infected finger June 11, 2024 1 0:34am Cellulitis of right middle finger Dece er 2023 10:34am Other specified postprocedural states cem2023 10:34am Anxiety and depression June 11 12:35pm Colorectal cancer June 11, 2024 1 2:35pm Hyperlipidemia June 11, 2024 1 2:35pm Hypertension June 11, 2024 1 2:35pm Infected finger June 11, 2024 1 2:35pm Infected finger June 25, 2024 8:10am Cellulitis of right middle finger [facility] er 2023 8:10am Other specified postprocedural states De cember 2023 8:10am Infected finger July 17, 2024 8: 19am Other specified postprocedural states Ja nuary 2024 8:19am Infected finger August 14, 2024 1 2:45pm Other specified postprocedural states Fe bruary 2024 12:45pm Arthritis of finger September 04, 2024 2:43pm Infected finger September 04, 2024 2:43pm Other specified postprocedural states Fe bruary 2024 2:43pm Chief Complaint Admit Date 1 WK POST OP June 11, 2024 1 0:34am 6 month f/u June 11, 2024 1 2:35pm 2 WEEKS June 25, 2024 8:10am 2-3 WEEKS July 17, 2024 8: 19am 4 WEEKS August 14, 2024 1 2:45pm hand pain August 20, 2024 8:01am hand pain August 26, 2024 6:36am hand pain August 26, 2024 12:38pm 1 WK POST OP September 04, 2024 2:43pm 3 Month F/U September 09, 2024 9:54 am Reason for Visit Admit Date Infected finger June 11, 2024 1 0:34am Cellulitis of right middle finger Decemb er 2023 10:34am Other specified postprocedural states De cember 2023 10:34am Anxiety and depression June 11 12:35pm [...] 2024 8: 19am Other specified postprocedural states Ja nuary 2024 8:19am Infected finger August 14, 2024 1 2:45pm Other specified postprocedural states Fe bruary 2024 12:45pm Arthritis of finger September 04, 2024 2:43pm Infected finger September 04, 2024 2:43pm Other specified postprocedural states Fe bruary 2024 2:43pm Anxiety and depression September 09, 2024 9 :54am Colorectal cancer September 09, 2024 9:54 am Hyperlipidemia September 09, 2024 9:54 am Infected finger September 09, 2024 9:54 am Chief Complaint Admit Date 2 WEEKS June 25, 2024 8:10am 2-3 WEEKS July 17, 2024 8: 19am 4 WEEKS August 14, 2024 1 2:45pm hand pain August 20, 2024 8:01am hand pain August 26, 2024 6:36am hand pain August 26, 2024 12:38pm 1 WK POST OP September 04, 2024 2:43pm 3 Month F/U September 09, 2024 9:54 am hx of rectal cancer September 18, 2024 9:3 4am hx of rectal cancer September 18, 2024 10: 41am Reason for Visit Admit Date Infected finger June 25, 2024 8:10am Cellulitis of right middle finger Decemb er 2023 8:10am Other specified postprocedural states De cember 2023 8:10am Infected finger July 17, 2024 8: 19am Other specified postprocedural states Kevin trejo 2024 8:19am Infected finger August 14, 2024 1 2:45pm Other specified postprocedural states Fe bruary 2024 12:45pm Arthritis of finger September 04, 2024 2:43pm Infected finger September 04, 2024 2:43pm Other specified postprocedural states Fe bruary 2024 2:43pm Anxiety and depression September 09, 2024 9 :54am Colorectal cancer September 09, 2024 9:54 am Hyperlipidemia September 09, 2024 9:54 am Infected finger September 09, 2024 9:54 am Chief Complaint Admit Date 2-3 WEEKS July 17, 2024 8: 19am 4 WEEKS August 14, 2024 1 2:45pm hand pain August 20, 2024 8:01am hand pain August 26, 2024 6:36am hand pain August 26, 2024 12:38pm 1 WK POST OP September 04, 2024 2:43pm 3 Month F/U September 09, 2024 9:54 am hx of rectal cancer September 18, 2024 9:3 4am hx of rectal cancer September 18, 2024 10: 41am L08.9 - Local infection of the skin and subcutaneo September 27, 2024 10:27am 3 WEEKS September 27, 2024 11: 15am Reason for Visit Admit Date Infected finger July 17, 2024 8: 19am Other specified postprocedural states Kevin trejo 2024 8:19am Infected finger August 14, 2024 1 2:45pm Other specified postprocedural states Fe bruary 2024 12:45pm Arthritis of finger September 04, 2024 2:43pm Infected finger September 04, 2024 2:43pm Other specified postprocedural states Fe bruary 2024 2:43pm Anxiety and depression September 09, 2024 9 :54am Colorectal cancer September 09, 2024 9:54 am Hyperlipidemia September 09, 2024 9:54 am Infected finger September 09, 2024 9:54 am Arthritis of finger September 27, 2024 11: 15am Infected finger September 27, 2024 11: 15am Other specified postprocedural states 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 - Primary osteoarthritis, unspec ified hand October 18, 2024 7:03am 4-5 WEEKS October 18, 2024 11: 03am Reason for Visit Admit Date Infected finger August 14, 2024 1 2:45pm Other specified postprocedural states Fe bruary 2024 12:45pm Arthritis of finger September 04, 2024 2:43pm Infected finger September 04, 2024 2:43pm Other specified postprocedural states Fe bruary 2024 2:43pm Anxiety and depression September 09, 2024 9 :54am Colorectal cancer September 09, 2024 9:54 am Hyperlipidemia September 09, 2024 9:54 am Infected finger September 09, 2024 9:54 am Arthritis of finger September 27, 2024 11: 15am Infected finger September 27, 2024 11: 15am Other specified postprocedural states [facility] 2024 11:15am Arthritis of finger October 18, 2024 11: 03am Infected finger October 18, 2024 11: 03am Other specified postprocedural states Ap ril 2024 11:03am Reason for Referral Specialty Diagnoses / Procedures Referred By Shelly t Referred To Contact [facility] Diagnoses Pain in right hip Procedures CONSULT TO PHYSICAL THERAPY PHYSICAL THERAPY EVALUATION [facility] [address] [place] [address] [place] [address] [facility] [place] [address] [place] [address] Referral ID Status Reason Start Date Expiration Date Visits Requested Visits Authorized [id number] Authorized PCP Requested Referral Auto-Generate d Referral 11/21/2023 11/20/2024 99 99 Specialty Diagnoses / Procedures Referred By Contac t Referred To Contact General Surgery Diagnoses Rectal cancer (HCC) Procedures CONSULT TO GENERAL SURGERY OFFICE/OUTPATIENT [facility] 60-74 MINUTES Tapan Corona MD [address] [place] [address] Referral ID Status Reason Start Date Expiration Date Visits Requested Visits Authorized [id number] Authorized PCP Requested Referral 06/14/2023 06/13/2024 1 1 Specialty Diagnoses / Procedures Referred By Contac t Referred To Contact MR IMAGING Diagnoses Rectal cancer (HCC) Procedures MRI RECTUM WO/W IVCON MRI PELVIS W/O & W/CONTRAST MATERIAL Tapan Corona MD [address] [place] [address] [place] [address] Referral ID Status Reason Start Date Expiration Date Visits Requested Visits Authorized [id number] Authorized Auto-Generat ed Referral 06/09/2023 05/27/2024 1 1 Specialty Diagnoses / Procedures Referred By Contac t Referred To Contact Diagnoses Rectal adenocarcinoma (HCC) Procedures CT SIM PLANNING RADIATION ONCOLOGY THER RAD SIMULAJ-AIDED FIELD SETTING COMPLEX Del Hudson MD [address] [place] [address] [place] [address] Referral ID Status Reason Start Date Expiration Date Visits Requested Visits Authorized [id number] Pending Review PCP Requested Referral 03/23/2023 06/20/2023 1 1 Specialty Diagnoses / Procedures Referred By Contac t Referred To Contact MR IMAGING Diagnoses Rectal adenocarcinoma (HCC) Procedures MRI RECTUM WO/W IVCON MRI PELVIS W/O & W/CONTRAST MATERIAL Del Hudson MD [address] [place] [address] [place] [address] [place] [id number] Referral ID Status Reason Start Date Expiration Date Visits Requested Visits Authorized [id number] Authorized Auto-Generat ed Referral 03/07/2023 07/09/2023 1 1 Reason diagnostic colonosco py Diagnosis 1 Change in bowel habi ts (R19.4) Diagnosis 2 Flatulence (R14.3) Diagnosis 3 Bloody stools (K92.1 ) Referral Organization [facility] [place] Referring Provider First Name Charles Referring Provider Last Name Dixie Referring Provider Specialty Family Prac jennifer Referred Provider Specialty Gastroentero logy Referral Priority Routine Reason *FU 10/11 needs ca rdiac clearance (right knee replacement in November) ; nohc Diagnosis 1 Atrial fibrillation (I48.91) Diagnosis 2 Primary osteoarthrit is of right knee (M17.11) Referral Organization [facility] [place] Referring Provider First Name Charles Referring Provider Last Name Dixie Referring Provider Specialty Family Prac jennifer Referred Organization [facility] Referred Address [address] [facility] [address] ,[place], [place],[address] Referred Provider Specialty Cardiology Referral Priority Routine General Notes Dominga Vázquez 023 08:56:54 AM >Received today. NO office request us to fax the referral to them and they will review and call patient to schedule their appointment. Referral was fax Additional Source Comments INFORMATION SOURCE (unrecogn ized section and content) DATE CREATED AUTHOR 01/02/2018 [facility] DATE CREATED AUTHOR AUTHOR'S ORGANIZ ATION 10/27/2022 [facility] DATE CREATED AUTHOR AUTHOR'S ORGANIZ ATION 11/11/2022 [facility] DATE CREATED AUTHOR AUTHOR'S ORGANIZ ATION 04/25/2023 [facility] DATE CREATED AUTHOR AUTHOR'S ORGANIZ ATION 07/27/2023 [facility] DATE CREATED AUTHOR AUTHOR'S ORGANIZ ATION 11/22/2023 [facility] DATE CREATED AUTHOR AUTHOR'S ORGANIZ ATION 02/21/2024 [facility] EPIC DATE CREATED AUTHOR AUTHOR'S ORGANIZ ATION 05/10/2024 [facility] DATE CREATED AUTHOR AUTHOR'S ORGANIZ ATION 10/30/2024 [facility] DATE CREATED AUTHOR AUTHOR'S ORGANIZ ATION 01/01/2025 [facility] DATE CREATED AUTHOR AUTHOR'S ORGANIZ ATION 02/23/2025 [facility] REASON FOR VISIT (unrecogniz ed section and [...] office. Specialty Diagnoses / Procedures Referred By Shelly toscano Referred To Contact MR IMAGING Diagnoses Rectal cancer (HCC) Procedures MRI RECTUM WO/W IVCON MRI PELVIS W/O & W/CONTRAST MATERIAL Tapan Corona MD [address] [place] [id number] [place] [id number] Referral ID Status Reason Start Date Expiration Date V isits Requested Visits Authorized [id number] Closed Auto-Generate d Referral 06/09/2023 05/27/2024 1 1 Reason Comments Rectal Cancer Follow up Reason Comments Care Coordination Medication update Reason Comments Follow-up 2 week [facility] [place] [facility] [place] Reason Comments Care Coordination Hospital d/c follow up call 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 Reason Comments Care [...] W/O & W/CONTRAST MATERIAL Del Hudson MD [address] [place] [address] [place] [address] [place] [id number] Referral ID Status Reason Start Date Expiration Date V isits Requested Visits Authorized [id number] Closed Auto-Generate d Referral 03/07/2023 07/09/2023 1 1 Reason Comments Rectal Cancer Follow up Reason Comments Post Radiation Treatment Follow Up Reason Comments Established Patient Reason Comments Results, Lab Reason Comments Established Patient Reason Comments Manometry Specialty Diagnoses / Procedures Referred By Contac t Referred To Contact [facility] Diagnoses Low anterior resection syndrome Procedures ADULT [place] ANORECTAL MANOMETRY [place] [address] [place] [address] Phone: tel: fax: [facility] [address] [place] [address] Referral ID Status Reason Start Date Expiration Date V isits Requested Visits Authorized [id number] Closed Auto-Generate d Referral 10/31/2024 10/31/2025 1 1 Reason Comments Returning Patient's Call Reason Comments PT Eval Specialty Diagnoses / Procedures Referred By Contac t Referred To Contact [facility] Diagnoses Low anterior resection syndrome Procedures CONSULT TO PHYSICAL THERAPY PHYSICAL THERAPY EVALUATION HIGH COMPLEX [address] [place] [address] [place] [address] Phone: tel: fax: [facility] [address] [place] [address] Referral ID Status Reason Start Date Expiration Date Visits Requested Visits Authorized [id number] Authorized PCP Requested Referral Auto-Generate d Referral 10/31/2024 10/31/2025 99 99 Reason Comments Radiology [place] Specialty Diagnoses / Procedures Referred By Contac t Referred To Contact CT IMAGING Diagnoses History of rectal cancer Rectal cancer (HCC) Procedures CT ABD/PEL W IVCON CT ABD & PELVIS W/CONTRAST Tapan Corona MD [address] [place] [address] Phone: tel: fax: [place] [id number] Referral ID Status Reason Start Date Expiration Date V isits Requested Visits Authorized [id number] Closed Auto-Generate d Referral 09/03/2024 10/03/2025 1 1 Reason Comments Physical Therapy Specialty Diagnoses / Procedures Referred By Contac t Referred To Contact [facility] Diagnoses Low anterior resection syndrome Procedures PHYSICAL THERAPY EVALUATION HIGH COMPLEX [address] [place] [address] [place] [address] Phone: tel: fax: [facility] [address] [place] [address] Reason Comments history of colon cancer Reason Comments Follow Up Low anterior resecti on syndrome Care Teams (unrecognized sec tion and content) Team Status: Active Member Role Status Dates Charles Bazzi DO Primary Care Provider Active Team Status: Inactive Member Role Status Dates Charles Bazzi DO Primary Care Provider Active Sta rt: May 22, 2024 End: May 22, 2024 Chris Henning APRN Emergency Provider Active Start: May 22, 2024 End: May 22, 2024 Jorge A Haji DO Other Provider Active Start: May 22, 2024 End: May 22, 2024 Team Status: Active Member Role Status Dates Charles Bazzi DO Primary Care Provider Active Sta rt: May 22, 2024 Chris Henning APRN Emergency Provider Active Start: May 22, 2024 Jorge A Haji DO Attending Provider Active St art: May 22, 2024 Team Status: Inactive Member Role Status Dates Charles Bazzi DO Primary Care Provider Active Sta rt: May 23, 2024 End: May 23, 2024 Chris Henning APRN Emergency Provider Active Start: May 23, 2024 End: May 23, 2024 Team Status: Inactive Member Role Status Dates Charles Bazzi DO Primary Care Provider Active Sta rt: May 30, 2024 End: May 30, 2024 Jorge A Haji DO Attending Provider Active St art: May 30, 2024 End: May 30, 2024 Team Status: Inactive Member Role Status Dates Charles Kuns , DO Primary Care Provider Active Sta rt: May 31, 2024 End: May 31, 2024 Amanda Chester MD Attending Provider Active Start: May 31, 2024 End: May 31, 2024 Team Status: Active Member Role Status Seda Bazzi DO Primary Care Provider Active Sta rt: May 31, 2024 Amanda Chester MD Attending Provider , Other Provider Active Start: May 31, 2024 Team Status: Inactive Member Role Status Seda Bazzi DO Primary Care Provide r, Attending Provider Active Start: June 04, 2024 End: June 04, 2024 Team Status: Inactive Member Role Status Seda Bazzi DO Primary Care Provider Active Sta rt: June 11, 2024 End: June 11, 2024 Amanda Chester MD Attending Provider Active Start: June 11, 2024 End: June 11, 2024 Team Status: Inactive Member Role Status Seda Bazzi DO Primary Care Provide r, Attending Provider Active Start: June 11, 2024 End: June 11, 2024 Team Status: Inactive Member Role Status Seda Bazzi DO Primary Care Provider Active Sta rt: June 25, 2024 End: June 25, 2024 Amanda Chester MD Attending Provider Active Start: June 25, 2024 End: June 25, 2024 Team Status: Inactive Member Role Status Seda Bazzi DO Primary Care Provider Active Sta rt: July 17, 2024 End: July 17, 2024 Amanda Chester MD Attending Provider Active Start: July 17, 2024 End: July 17, 2024 Team Status: Inactive Member Role Status Seda Bazzi DO Primary Care Provider Active Sta rt: August 14, 2024 End: August 14, 2024 Amanda Chester MD Attending Provider Active Start: August 14, 2024 End: August 14, 2024 Team Status: Active Member Role Status [...] Sta rt: September 30, 2023 Patrice Springer , Emergency Provider Active Start: September 30, 2023 Miguel Ángel Delgadillo MD Admit Provider, Atte nding Provider Active Start: September 30, 2023 Team Status: Inactive Member Role Status Dates Charles Bazzi DO Primary Care Provider, Attending Provi johnson Active Team Status: Inactive Member Role Status Dates Charles Bazzi DO Primary Care Provider Active Caroline Rangel II, MD Attending Provider Active Auricular Detoxification Specialist Relationship Specialty Start Date End Date Charles Bazzi [address] [place] [phone] PCP - General Family Medicine 03/16/23 Colleen Solorio RN [address] [place] [address] [place] [address] Specialty Professional Nursing Tutor Hematology/Oncology 03/22/23 Tapan Corona MD [address] [place] [address] [place] [address] Physician Hematology/Oncology 03/22/23 Naheed Elias PA-C [address] [facility] [place] [place] [address] Physician Co Founder And Chief Strategy Officer Hematology/Oncology 03/22/23 Auricular Detoxification Specialist Relationship Specialty Start Date End Date Charles Bazzi [address] [place] [phone] PCP - General Family Medicine 03/16/23 Colleen Solorio RN [address] [place] [address] Specialty Professional Nursing Tutor Hematology/Oncology 03/22/23 Tapan Corona MD [facility] [address] [facility] [place] [address] Physician Hematology/Oncology 03/22/23 Naheed Elias PA-C [facility] [address] [facility] [place] [place] [address] Physician Co Founder And Chief Strategy Officer Hematology/Oncology 03/22/23 Auricular Detoxification Specialist Relationship Specialty Start Date End Date Charles Bazzi [address] [place] [phone] PCP - General Family Medicine 03/16/23 Colleen Solorio RN [address] [facility] [place] [address] Specialty Professional Nursing Tutor Hematology/Oncology 03/22/23 Tapan Corona MD [address] [facility] [address] Physician Hematology/Oncology 03/22/23 Naheed Elias PA-C [address] [facility] [place] [address] Physician Co Founder And Chief Strategy Officer Hematology/Oncology 03/22/23 Auricular Detoxification Specialist Relationship Specialty Start Date End Date Charles Bazzi [address] [place], [place] [phone] PCP - General Family Medicine 03/16/23 Colleen Solorio RN [address] [facility] [place] [place] [address] Specialty Professional Nursing Tutor Hematology/Oncology 03/22/23 Tapan Corona MD [address] [facility] [place] [address] Physician Hematology/Oncology 03/22/23 Naheed Elias PA-C [address] [facility] [address] [place], [facility] Physician Co Founder And Chief Strategy Officer Hematology/Oncology 03/22/23 Auricular Detoxification Specialist Relationship Specialty Start Date End Date Charles Bazzi [address] [place], [place] [phone] PCP - General Family Medicine 03/16/23 Colleen Solorio RN [address] [facility] [place] [address] Specialty Professional Nursing Tutor Hematology/Oncology 03/22/23 Tapan Corona MD [address] [facility] [place] [id number] Physician Hematology/Oncology 03/22/23 Naheed Elias PAGabriel [address] [facility] [place] [place] [address] Physician Co Founder And Chief Strategy Officer Hematology/Oncology 03/22/23 Auricular Detoxification Specialist Relationship Specialty Start Date End Date Charles Bazzi [address] [place], [place] [phone] PCP - General Family Medicine 03/16/23 Colleen Solorio RN [address] [place] [address] Specialty Professional Nursing Tutor Hematology/Oncology 03/22/23 Tapan Corona MD [address] [facility] [place] [address] Physician Hematology/Oncology 03/22/23 Naheed Elias PA-C [address] [facility] [place] [place] [address] Physician Co Founder And Chief Strategy Officer Hematology/Oncology 03/22/23 Auricular Detoxification Specialist Relationship Specialty Start Date End Date Charles Bazzi [address] [place], [place] [phone] PCP - General Family Medicine 03/16/23 Colleen Solorio RN [address] [facility] [place] [place] [address] Specialty Professional Nursing Tutor Hematology/Oncology 03/22/23 Tapan Corona MD [address] [facility] [place] [address] Physician Hematology/Oncology 03/22/23 Naheed Elias PA-C [address] [facility] [place] [place] [address] Physician Co Founder And Chief Strategy Officer Hematology/Oncology 03/22/23 Auricular Detoxification Specialist Relationship Specialty Start Date End Date Charles Bazzi [address] [place], [place] [phone] PCP - General Family Medicine 03/16/23 Colleen Solorio RN [address] [place] [address] [place] [address] Specialty Professional Nursing Tutor Hematology/Oncology 03/22/23 Tapan Corona MD [address] [place] [address] [place] [address] Physician Hematology/Oncology 03/22/23 Naheed Elias PA-C [address] [place] [address] [place] [address] Physician Co Founder And Chief Strategy Officer Hematology/Oncology 03/22/23 Team Status: Inactive Member Role Status Dates Charles Bazzi DO Primary Care Provider Active Tomi Greene MD Attending Provider Active Team Status: Active Member Role Status Seda Bazzi , DO Primary Care Provider Active Gregory Rangel PA-C Emergency Provider Active Jordan Hare , DO Admit Provider, Attending Provider Active Team Status: Inactive Member Role Status Dates Charles Bazzi , Primary Care Provider Active Gregory Rangel PA-C Emergency Provider Active Jordan Hare , DO Admit Provider Active Aggie Harmon RN Other Provider Active Akila Stokes , Other Provider Active Troy Tabares MD Other Provider Active David Espinosa MD Other Provider Active Marcos Rios MD Other Provider Active Blas Villagomez MD Other Provider Active Pushpa Saucedo EDITOR PRODUCER Other Provider Active Amanda Mora MD Other Provider Active Jomar Campos MD Other Provider Active Kandace Shah MD Other Provider Active Arlette Orozco [facility] Other Provider Active Wendy Ocasio MD Other Provider Active Agustin Negron MD Attending Provider Active Tapan Corona MD Other Provider Active Auricular Detoxification Specialist Relationship Specialty Start Date End Date Charles Bazzi [address] [place] [phone] PCP - General Family Medicine 03/16/23 Colleen Solorio RN [address] [place] [address] [place] [address] Specialty Professional Nursing Tutor Hematology/Oncology 03/22/23 Tapan Corona MD [address] [facility] [place] [address] Physician Hematology/Oncology 03/22/23 Naheed Elias, JASVIR-C [address] [facility] [place] [place] [address] Physician Co Founder And Chief Strategy Officer Hematology/Oncology 03/22/23 Auricular Detoxification Specialist Relationship Specialty Start Date End Date Charles Bazzi [address] [place], [place] [phone] PCP - General Family Medicine 03/16/23 Colleen Solorio RN [address] [facility] [place] [place] [address] Specialty Professional Nursing Tutor Hematology/Oncology 03/22/23 Tapan Corona MD [address] [facility] [place] [address] Physician Hematology/Oncology 03/22/23 Naheed Elias, PAGabriel [address] [facility] [place] [place] [address] Physician Co Founder And Chief Strategy Officer Hematology/Oncology 03/22/23 Auricular Detoxification Specialist Relationship Specialty Start Date End Date Charles Bazzi [address] [place] [phone] PCP - General Family Medicine 03/16/23 Colleen Solorio RN [address] [facility] [place] [place] [address] Specialty Professional Nursing Tutor Hematology/Oncology 03/22/23 Tapan Corona MD [address] [facility] [place] [address] Physician Hematology/Oncology 03/22/23 Naheed Elias PA-C [address] [facility] [place] [address] Physician Co Founder And Chief Strategy Officer Hematology/Oncology 03/22/23 Auricular Detoxification Specialist Relationship Specialty Start Date End Date Charles Bazzi [address] [place], [place] [phone] PCP - General Family Medicine 03/16/23 Colleen Solorio RN [address] [facility] [place] [address] Specialty Professional Nursing Tutor Hematology/Oncology 03/22/23 Tapan Corona MD [facility] [address] [facility] [place] [id number] Physician Hematology/Oncology 03/22/23 Naheed Elias PA-C [facility] [address] [facility] [address] [place], [facility] Physician Co Founder And Chief Strategy Officer Hematology/Oncology 03/22/23 Auricular Detoxification Specialist Relationship Specialty Start Date End Date Charles Bazzi [address] [place], [place] [phone] PCP - General Family Medicine 03/16/23 Colleen Solorio RN [address] [facility] [place] [address] Specialty Professional Nursing Tutor Hematology/Oncology 03/22/23 Tapan Corona MD [address] [facility] [place] [address] Physician Hematology/Oncology 03/22/23 Naheed Elias PA-C [address] [facility] [place] [place] [address] Physician Co Founder And Chief Strategy Officer Hematology/Oncology 03/22/23 Auricular Detoxification Specialist Relationship Specialty Start Date End Date Angela Bazzipeyton Elkinser [address] [place], [place] [phone] PCP - General Family Medicine 03/16/23 Colleen Solorio RN [address] [facility] [place] [address] Specialty Professional Nursing Tutor Hematology/Oncology 03/22/23 Tapan Corona MD [address] [place] [address] [place] [address] Physician Hematology/Oncology 03/22/23 Naheed Elias PA-C [address] [place] [address] [place] [address] Physician Co Founder And Chief Strategy Officer Hematology/Oncology 03/22/23 Auricular Detoxification Specialist Relationship Specialty Start Date End Date Charles Bazzi [address] [place], [place] [phone] PCP - General Family Medicine 03/16/23 Colleen Solorio RN [address] [facility] [place] [address] Specialty Professional Nursing Tutor Hematology/Oncology 03/22/23 Tapan Corona MD [address] [facility] [place] [address] Physician Hematology/Oncology 03/22/23 Naheed Elias PA-C [address] [facility] [place] [place] [address] Physician Co Founder And Chief Strategy Officer Hematology/Oncology 03/22/23 Auricular Detoxification Specialist Relationship Specialty Start Date End Date Charles Bazzi [address] [place] [phone] PCP - General Family Medicine 03/16/[address] [facility] [place] [address] Specialty Professional Nursing Tutor Hematology/Oncology 03/22/23 Tapan Corona MD [address] [place] [address] [place] [address] Physician Hematology/Oncology 03/22/23 Naheed Elias PA-C [address] [place] [address] [place] [address] Physician Co Founder And Chief Strategy Officer Hematology/Oncology 03/22/23 Auricular Detoxification Specialist Relationship Specialty Start Date End Date Charles Bazzi [address] [place], [place] [phone] PCP - General Family Medicine 03/16/23 Colleen Sol[address] RN [address] [facility] [place] [address] Specialty Professional Nursing Tutor Hematology/Oncology 03/22/23 Tapan Corona MD [address] [place] [address] [place] [id number] Physician Hematology/Oncology 03/22/23 Naheed Elias PA-C [address] [place] [address] [place] [address] Physician Co Founder And Chief Strategy Officer Hematology/Oncology 03/22/23 Auricular Detoxification Specialist Relationship Specialty Start Date End Date Charles Bazzi [address] [place], [place] [phone] PCP - General Family Medicine 03/16/23 Colleen Solorio RN [address] [facility] [place] [address] Specialty Professional Nursing Tutor Hematology/Oncology 03/22/23 Tapan Corona MD [address] [place] [address] Physician Hematology/Oncology 03/22/23 Naheed Elias PADesireeC [address] [facility] [place] [place] [address] Physician Co Founder And Chief Strategy Officer Hematology/Oncology 03/22/23 Auricular Detoxification Specialist Relationship Specialty Start Date End Date Charles Bazzi [address] [place] [phone] PCP - General Family Medicine 03/16/23 Auricular Detoxification Specialist Relationship Specialty Start Date End Date Charles Bazzi [address] [place] [phone] PCP - General Family Medicine 03/16/23 Colleen Solorio RN [address] [facility] [place] [address] Specialty Professional Nursing Tutor Hematology/Oncology 03/22/23 Tapan Corona MD [address] [place] [address] Physician Hematology/Oncology 03/22/23 Naheed Elias [address]ADesireeC [address] [facility] [place] [address] Physician Co Founder And Chief Strategy Officer Hematology/Oncology 03/22/23 Auricular Detoxification Specialist Relationship Specialty Start Date End Date Charles Bazzi [address] [phone] PCP - General Family Medicine 03/16/23 Colleen Solorio RN [address] [facility] [place] [place] [address] Specialty Professional Nursing Tutor Hematology/Oncology 03/22/23 Tapan Corona MD [address] [place], [place] [id number] Physician Hematology/Oncology 03/22/23 Naheed Elias, PA-C [address] [place] [address] [place] [address] Physician Co Founder And Chief Strategy Officer Hematology/Oncology 03/22/23 Auricular Detoxification Specialist Relationship Specialty Start Date End Date Charles Bazzi [address] [place], [place] [phone] PCP - General Family Medicine 03/16/23 Colleen Solorio RN [address] [facility] [place] [place] [address] Specialty Professional Nursing Tutor Hematology/Oncology 03/22/23 Tapan Corona MD [address] [place] [address] [place] [address] Physician Hematology/Oncology 03/22/23 Naheed Elias, PA-C [address] [place] [address] [place] [address] Physician Co Founder And Chief Strategy Officer Hematology/Oncology 03/22/23 Auricular Detoxification Specialist Relationship Specialty Start Date End Date Charles Bazzi [address] [place], [place] [phone] PCP - General Family Medicine 03/16/23 Colleen Solorio RN [address] [facility] [place] [place] [address] Specialty Professional Nursing Tutor Hematology/Oncology 03/22/23 Tapan Corona MD [address] [facility] [place] [address] Physician Hematology/Oncology 03/22/23 Naheed Elias PA-C [address] [facility] [place] [address] [place], [facility] Physician Co Founder And Chief Strategy Officer Hematology/Oncology 03/22/23 Auricular Detoxification Specialist Relationship Specialty Start Date End Date Charles Bazzi [address] [place], [place] [phone] PCP - General Family Medicine 03/16/23 Colleen Solorio RN [address] [facility] [place] [address] [place], [facility] Specialty Professional Nursing Tutor Hematology/Oncology 03/22/23 Tapan Corona MD [address] [facility] [place] [phone] Physician Hematology/Oncology 03/22/23 Naheed Elias PA-C [address] [facility] [place] [address] [place], [facility] Physician Co Founder And Chief Strategy Officer Hematology/Oncology 03/22/23 Auricular Detoxification Specialist Relationship Specialty Start Date End Date Charles Bazzi [address] [place], [place] [phone] PCP - General Family Medicine 03/16/23 Colleen Solorio RN [address] [facility] [facility] [place] [place] [address] Specialty Professional Nursing Tutor Hematology/Oncology 03/22/23 Tapan Corona MD [address] [place] [address] Physician Hematology/Oncology 03/22/23 Naheed Elias PA-C [address] [facility] [address] Physician Co Founder And Chief Strategy Officer Hematology/Oncology 03/22/23 Auricular Detoxification Specialist Relationship Specialty Start Date End Date Charles Bazzi [address] [place], [place] [phone] PCP - General Family Medicine 03/16/23 Colleen Solorio RN [address] [facility] [place] [address] Specialty Professional Nursing Tutor Hematology/Oncology 03/22/23 Tapan Corona MD [address] [place] [address] [place] [id number] Physician Hematology/Oncology 03/22/23 Naheed Elias PA-C [address] [place] [address] [place] [address] Physician Co Founder And Chief Strategy Officer Hematology/Oncology 03/22/23 Team Status: Inactive Member Role Status Dates Charles Bazzi DO Primary Care Provider Active Cristhian Vargas MD Attending Provider Active Auricular Detoxification Specialist Relationship Specialty Start Date End Date Charles Bazzi DO PCP - General 10/05/22 Auricular Detoxification Specialist Relationship Specialty Start Date End Date Charles Bazzi [address] [place], [place] [phone] PCP - General Family Medicine 03/16/23 Colleen Solorio RN [address] [facility] [place] [address] Specialty Professional Nursing Tutor Hematology/Oncology 03/22/23 Tapan Corona MD [address] [place] [address] [place] [address] Physician Hematology/Oncology 03/22/23 Naheed Elias, PA-C [address] [place] [address] [place] [address] Physician Co Founder And Chief Strategy Officer Hematology/Oncology 03/22/23 Maryuri Rodriguez, ROLL CARRIER Building Rental Manager 07/21/23 Auricular Detoxification Specialist Relationship Specialty Start Date End Date Charles Bazzi [address] [place], [place] [phone] PCP - General Family Medicine 03/16/23 Colleen Solorio RN [address] [facility] [address] [place] [id number] Specialty Professional Nursing Tutor Hematology/Oncology 03/22/23 Tapan Corona MD [address] [place] [address] [place] [address] Physician Hematology/Oncology 03/22/23 Naheed Elias, JASVIR-C [address] [place] [address] [place] [address] Physician Co Founder And Chief Strategy Officer Hematology/Oncology 03/22/23 Maryuri Rodriguez, MARTIN Building Rental Manager 07/21/23 Auricular Detoxification Specialist Relationship Specialty Start Date End Date Charles Bazzi [address] [place] [phone] PCP - General Family Medicine 03/16/23 Colleen Solorio RN [address] [facility] [place] [address] Specialty Professional Nursing Tutor Hematology/Oncology 03/22/23 Tapan Corona MD [address] [facility] [place] [address] Physician Hematology/Oncology 03/22/23 Naheed Elias PA-C [address] [facility] [place] [place] [address] Physician Co Founder And Chief Strategy Officer Hematology/Oncology 03/22/23 Maryuri Rodriguez LSW Building Rental Manager 07/21/23 Auricular Detoxification Specialist Relationship Specialty Start Date End Date Charles Bazzi [address] [place] [phone] PCP - General Family Medicine 03/16/23 Colleen Solorio RN [address] [facility] [place] [place] [address] Specialty Professional Nursing Tutor Hematology/Oncology 03/22/23 Tapan Corona MD [address] [facility] [place] [address] Physician Hematology/Oncology 03/22/23 Naheed Elias PA-C [address] [facility] [place] [place] [address] Physician Co Founder And Chief Strategy Officer Hematology/Oncology 03/22/23 Maryuri Rodriguez LSW Building Rental Manager 07/21/23 Auricular Detoxification Specialist Relationship Specialty Start Date End Date Charles Bazzi [address] [place] [phone] PCP - General Family Medicine 03/16/23 Colleen Solorio RN [address] [facility] [place] [place] [address] Specialty Professional Nursing Tutor Hematology/Oncology 03/22/23 Tapan Corona MD [address] [place] [address] [place] [address] Physician Hematology/Oncology 03/22/23 Naheed Elias PA-C [address] [place] [address] [place] [address] Physician Co Founder And Chief Strategy Officer Hematology/Oncology 03/22/23 Maryuri Rodriguez LSW Building Rental Manager 07/21/23 Auricular Detoxification Specialist Relationship Specialty Start Date End Date Charles Bazzi [address] [place] [phone] PCP - General Family Medicine 03/16/23 Colleen Sol[address] RN [address] [facility] [address] Specialty Professional Nursing Tutor Hematology/Oncology 03/22/23 Tapan Corona MD [address] [place] [address] [place] [address] Physician Hematology/Oncology 03/22/23 Naheed Elias PA-C [address] [place] [address] [place] [address] Physician Co Founder And Chief Strategy Officer Hematology/Oncology 03/22/23 Maryuri Rodriguez LSW Building Rental Manager 07/21/23 Auricular Detoxification Specialist Relationship Specialty Start Date End Date Charles Bazzi [address] [place] [phone] PCP - General Family Medicine 03/16/23 Colleen Solorio, RN [address] [facility] [place] [address] Specialty Professional Nursing Tutor Hematology/Oncology 03/22/23 Tapan Corona MD [address] [place] [address] [place] [address] Physician Hematology/Oncology 03/22/23 Naheed Elias PA-C [address] [place] [address] [place] [address] Physician Co Founder And Chief Strategy Officer Hematology/Oncology 03/22/23 Maryuri Rodriguez LSW Building Rental Manager 07/21/23 Team Status: Inactive Member Role Status [...] Other Provider Active Start: September 30, 2023 Auricular Detoxification Specialist Relationship Specialty Start Date End Date Charles Bazzi [address] [place] [phone] PCP - General Family Medicine 03/16/23 Colleen Solorio, KAYA [address] [facility] [place] [address] Specialty Professional Nursing Tutor Hematology/Oncology 03/22/23 Tapan Corona MD [address] [place] [address] [place] [address] Physician Hematology/Oncology 03/22/23 Naheed Elias PA-C [address] [place] [address] [place] [address] Physician Co Founder And Chief Strategy Officer Hematology/Oncology 03/22/23 Maryuri Rodriguez LSW Building Rental Manager 07/21/23 Auricular Detoxification Specialist Relationship Specialty Start Date End Date Charles Bazzi [address] [place] [phone] PCP - General Family Medicine 03/16/23 Colleen Solorio, RN [address] [facility] [place] [address] Specialty Professional Nursing Tutor Hematology/Oncology 03/22/23 Tapan Corona MD [address] [place] [address] [place] [address] Physician Hematology/Oncology 03/22/23 Naheed Elias PA-C [address] [place] [address] [place] [address] Physician Co Founder And Chief Strategy Officer Hematology/Oncology 03/22/23 Maryuri Rodriguez LSW Building Rental Manager 07/21/23 Team Status: Active Member Role Status [...] Team Status: Inactive Member Role Status Dates Charlse Bazzi DO Primary Care Provide r, Attending [...] Provider Active S tart: October 26, 2023 Auricular Detoxification Specialist Relationship Specialty Start Date End Date Charles Bazzi [address] [place] [phone] PCP - General Family Medicine 03/16/23 Colleen Solorio RN [address] [place] [address] [place] [address] Specialty Professional Nursing Tutor Hematology/Oncology 03/22/23 Tapan Corona MD [address] [place] [address] [place] [address] Physician Hematology/Oncology 03/22/23 Naheed Elias, PADesireeC [address] [place] [address] [place] [address] Physician Co Founder And Chief Strategy Officer Hematology/Oncology 03/22/23 Maryuri Rodriguez LSW Building Rental Manager 07/21/23 Auricular Detoxification Specialist Relationship Specialty Start Date End Date Charles Bazzi [address] [place] [phone] PCP - General Family Medicine 03/16/23 Colleen Solorio RN [address] [facility] [place] [place] [address] Specialty Professional Nursing Tutor Hematology/Oncology 03/22/23 Tapan Corona MD [address] [facility] [place] [address] Physician Hematology/Oncology 03/22/23 Naheed Elias PA-C [address] [facility] [facility] [place] [place] [address] Physician Co Founder And Chief Strategy Officer Hematology/Oncology 03/22/23 Maryuri Rodriguez LSW Building Rental Manager 07/21/23 Auricular Detoxification Specialist Relationship Specialty Start Date End Date Charles Bazzi [address] [place] [phone] PCP - General Family Medicine 03/16/23 Colleen Solorio RN [address] [facility] [facility] [place] [place] [address] Specialty Professional Nursing Tutor Hematology/Oncology 03/22/23 Tapan Corona MD [address] [facility] [place] [address] Physician Hematology/Oncology 03/22/23 Naheed Elias PA-C [address] [facility] [facility] [place] [place] [address] Physician Co Founder And Chief Strategy Officer Hematology/Oncology 03/22/23 Maryuri Rodriguez LSW Building Rental Manager 07/21/23 Auricular Detoxification Specialist Relationship Specialty Start Date End Date Charles Bazzi [address] [place], [place] [phone] PCP - General Family Medicine 03/16/23 Colleen Solorio RN [address] [facility] [place] [place] [address] Specialty Professional Nursing Tutor Hematology/Oncology 03/22/23 Tapan Corona MD [address] [facility] [place] [address] Physician Hematology/Oncology 03/22/23 Naheed Elias PA-C [address] [place] [address] [place] [address] Physician Co Founder And Chief Strategy Officer Hematology/Oncology 03/22/23 Maryuri oRdriguez, ROLL CARRIER Building Rental Manager 07/21/23 Auricular Detoxification Specialist Relationship Specialty Start Date End Date Charles Bazzi [address] [place], [place] [phone] PCP - General Family Medicine 03/16/23 Colleen Solorio RN [address] [facility] [place] [place] [address] Specialty Professional Nursing Tutor Hematology/Oncology 03/22/23 Tapan Corona MD [address] [place] [address] [place] [address] Physician Hematology/Oncology 03/22/23 Naheed Elias PA-C [address] [place] [address] [place] [address] Physician Co Founder And Chief Strategy Officer Hematology/Oncology 03/22/23 Maryuri Rodriguez, ROLL CARRIER Building Rental Manager 07/21/23 Auricular Detoxification Specialist Relationship Specialty Start Date End Date Charles Bazzi [address] [place] [phone] PCP - General Family Medicine 03/16/23 Colleen Solorio RN [address] [facility] [place] [address] [place], [place] [id number] Specialty Professional Nursing Tutor Hematology/Oncology 03/22/23 Tapan Corona MD [address] [facility] [place] [address] Physician Hematology/Oncology 03/22/23 Naheed Elias PA-C [address] [facility] [place] [place] [address] Physician Co Founder And Chief Strategy Officer Hematology/Oncology 03/22/23 Maryuri Rodriguez, ROLL CARRIER Building Rental Manager 07/21/23 Auricular Detoxification Specialist Relationship Specialty Start Date End Date Charles Bazzi [address] [place], [place] [phone] PCP - General Family Medicine 03/16/23 Tapan Corona MD [address] [place] [address] Physician Hematology/Oncology 03/22/23 Naheed Elias PA-C [address] [facility] [place] [place] [address] Physician Co Founder And Chief Strategy Officer Hematology/Oncology 03/22/23 Maryuri Rodriguez, ROLL CARRIER Building Rental Manager 07/21/23 Auricular Detoxification Specialist Relationship Specialty Start Date End Date Charles Bazzi [address] [place], [place] [phone] PCP - General Family Medicine 03/16/23 Colleen Solorio RN [address] [facility] [place] [place] [address] Specialty Professional Nursing Tutor Hematology/Oncology 03/22/23 02/07/24 Tapan Corona MD [address] [place] [address] Physician Hematology/Oncology 03/22/23 Naheed Elias PA-C [address] [facility] [place] [address] Physician Co Founder And Chief Strategy Officer Hematology/Oncology 03/22/23 Auricular Detoxification Specialist Relationship Specialty Start Date End Date Charles Bazzi [address] [place], [place] [phone] PCP - General Family Medicine 03/16/23 Tapan Corona MD [address] [place] [address] Physician Hematology/Oncology 03/22/23 Naheed Elias PA-C [address] [place] [address] [place] [address] Physician Co Founder And Chief Strategy Officer Hematology/Oncology 03/22/23 Maryuri Rodriguez LSW Building Rental Manager 07/21/23 Auricular Detoxification Specialist Relationship Specialty Start Date End Date Charles Bazzi [address] [place], [place] [phone] PCP - General Family Medicine 03/16/23 Tapan Corona MD [address] [place] [address] Physician Hematology/Oncology 03/22/23 Naheed Elias PA-C [address] [place] [address] [place] [address] Physician Co Founder And Chief Strategy Officer Hematology/Oncology 03/22/23 Maryuri Rodriguez LSW Building Rental Manager 07/21/23 Team Status: Active Member Role Status Dates Charles Bazzi DO Primary Care Provider Active Sta rt: April 30, 2024 THANIA Leyva Attending Provider Active Start: April 30, 2024 Team Status: Active Member Role Status Dates [...] 2024 End: May 22, 2024 Team Status: Active Member Role Status Dates Charles Bazzi DO Primary Care Provider Active Sta rt: May 30, 2024 Jorge A Haji DO Attending Provider Active St art: May 30, 2024 Auricular Detoxification Specialist Relationship Specialty Start Date End Date Charles Bazzi DO [address] [place] [phone] PCP - General 12/13/22 Team Status: Active Member Role Status Seda Bazzi DO Primary Care Provider Active Sta rt: August 19, 2024 Tapan Corona MD Attending Provider Active St art: August 19, 2024 Team Status: Inactive Member Role Status Dates Charles Bazzi DO Primary Care Provider Active Sta rt: August 20, 2024 End: August 20, 2024 Amanda Chester MD Attending Provider Active Start: August 20, 2024 End: August 20, 2024 Team Status: Inactive Member Role Status Dates Charles Bazzi DO Primary Care Provider Active Sta rt: August 26, 2024 End: August 26, 2024 Amanda Chester MD Attending Provider Active Start: August 26, 2024 End: August 26, 2024 Auricular Detoxification Specialist Relationship Specialty Start Date End Date Charles Bazzi [address] [place] [phone] PCP - General Family Medicine 03/16/23 Tapan Corona MD [address] [place] [address] Physician Hematology/Oncology 03/22/23 Naheed Elias PA-C [address] [facility] [address] Physician Co Founder And Chief Strategy Officer Hematology/Oncology 03/22/23 Maryuri Rodriguez LSW Building Rental Manager 07/21/23 Auricular Detoxification Specialist Relationship Specialty Start Date End Date Charles Bazzi [address] [place] [phone] PCP - General Family Medicine 03/16/23 Tapan Corona MD [address] [place] [address] [place] [address] Physician Hematology/Oncology 03/22/23 Naheed Elias PA-C [address] [facility] [address] Physician Co Founder And Chief Strategy Officer Hematology/Oncology 03/22/23 Maryuri Rodriguez LSW Building Rental Manager 07/21/23 Team Status: Active Member Role Status Dates Charles Bazzi DO Primary Care Provider Active Sta rt: August 26, 2024 Amanda Chester MD Attending Provider , Other Provider Active Start: August 26, 2024 Team Status: Inactive Member Role Status Dates Charles Bazzi DO Primary Care Provider Active Sta rt: September 04, 2024 End: September 04, 2024 Amanda Chester MD Attending Provider Active Start: September 04, 2024 End: September 04, 2024 Team Status: Inactive Member Role Status Dates Charles Bazzi DO Primary Care Provide r, Attending Provider Active Start: September 09, 2024 End: September 09, 2024 Team Status: Inactive Member Role Status Dates Charles Bazzi DO Primary Care Provider Active Sta rt: September 18, 2024 End: September 18, 2024 Tomi Greene MD Attending Provider Active Start: September 18, 2024 End: September 18, 2024 Team Status: Active Member Role Status Dates Charles Bazzi DO Primary Care Provider Active Sta rt: September 18, 2024 Tomi Greene MD Attending Provider, Other Provider Act libby Start: September 18, 2024 Team Status: Active Member Role Status Dates Charles Bazzi DO Primary Care Provider Active Sta rt: September 27, 2024 Amanda Chester MD Attending Provider Active Start: September 27, 2024 Team Status: Inactive Member Role Status Dates Charles Bazzi DO Primary Care Provider Active Sta rt: September 27, 2024 End: September 27, 2024 Amanda Chester MD Attending Provider Active Start: September 27, 2024 End: September 27, 2024 Team Status: Active Member Role Status Dates Charles Bazzi DO Primary Care Provider Active Sta rt: October 18, 2024 Amanda Chester MD Attending Provider Active Start: October 18, 2024 Team Status: Inactive Member Role Status Seda Bazzi DO Primary Care Provider Active Sta rt: October 18, 2024 End: October 18, 2024 Amanda Chester MD Attending Provider Active Start: October 18, 2024 End: October 18, 2024 Auricular Detoxification Specialist Relationship Specialty Start Date End Date Charles Bazzi [address] [place] [phone] PCP - General Family Medicine 03/16/23 Tapan Corona MD [address] [facility] [place] [address] Physician Hematology/Oncology 03/22/23 Naheed Elias PA-C [address] [facility] [place] [address] Physician Co Founder And Chief Strategy Officer Hematology/Oncology 03/22/23 Maryuri Rodriguez LSW Building Rental Manager 07/21/23 Auricular Detoxification Specialist Relationship Specialty Start Date End Date Charles Bazzi [address] [place], [place] [phone] PCP - General Family Medicine 03/16/23 Tapan Corona MD [address] [place] [address] Physician Hematology/Oncology 03/22/23 Naheed Elias PA-C [address] [place] [address] [place] [address] Physician Co Founder And Chief Strategy Officer Hematology/Oncology 03/22/23 Maryuri Rodriguez LSW Building Rental Manager 07/21/23 Auricular Detoxification Specialist Relationship Specialty Start Date End Date Charles Bazzi [address] [place], [place] [phone] PCP - General Family Medicine 03/16/23 Tapan Corona MD [address] [place] [address] Physician Hematology/Oncology 03/22/23 Naheed Elias PA-C [address] [facility] [address] Physician Co Founder And Chief Strategy Officer Hematology/Oncology 03/22/23 Maryuri Rodriguez LSW Building Rental Manager 07/21/23 Auricular Detoxification Specialist Relationship Specialty Start Date End Date Charles Bazzi [address] [place], [place] [phone] PCP - General Family Medicine 03/16/23 Tapan Corona MD [address] [facility] [place] [address] Physician Hematology/Oncology 03/22/23 Naheed Elias PA-C [address] [facility] [place] [place] [address] Physician Co Founder And Chief Strategy Officer Hematology/Oncology 03/22/23 Maryuri Rodriguez, ROLL CARRIER Building Rental Manager 07/21/23 Auricular Detoxification Specialist Relationship Specialty Start Date End Date Charles Bazzi [address] [place] [phone] PCP - General Family Medicine 03/16/23 Tapan Corona MD [address] [place] [address] Physician Hematology/Oncology 03/22/23 Naheed Elias PA-C [address] [facility] [place] [place] [address] Physician Co Founder And Chief Strategy Officer Hematology/Oncology 03/22/23 Maryuri Rodriguez, ROLL CARRIER Building Rental Manager 07/21/23 Auricular Detoxification Specialist Relationship Specialty Start Date End Date Charles Bazzi [address] [place] [phone] PCP - General Family Medicine 03/16/23 Tapan Corona MD [address] [facility] [place] [address] Physician Hematology/Oncology 03/22/23 Naheed lEias PA-C [address] [facility] [place] [place] [address] Physician Co Founder And Chief Strategy Officer Hematology/Oncology 03/22/23 Maryuri Rodriguez LSW Building Rental Manager 07/21/23 Auricular Detoxification Specialist Relationship Specialty Start Date End Date Charles Bazzi [address] [place], [place] [phone] PCP - General Family Medicine 03/16/23 Tapan Corona MD [address] [place], [place] [phone] Physician Hematology/Oncology 03/22/23 Naheed Elias PA-C [address] [place] [address] [place] [address] Physician Co Founder And Chief Strategy Officer Hematology/Oncology 03/22/23 Maryuri Rodriguez LSW Building Rental Manager 07/21/23 Auricular Detoxification Specialist Relationship Specialty Start Date End Date Charles Bazzi [address] [place], [place] [phone] PCP - General Family Medicine 03/16/23 Tapan Corona MD [address] [place], [place] [phone] Physician Hematology/Oncology 03/22/23 Naheed Elias PA-C [address] [place] [address] [place] [address] Physician Co Founder And Chief Strategy Officer Hematology/Oncology 03/22/23 Maryuri Rodriguez LSW Building Rental Manager 07/21/23 Goals (unrecognized section and content) Goals may be documented in a n alternate section Source Comments (unrecognize d section and content) In the event this informatio n is protected by the Federal Confidentiality of Alcohol and Drug Abuse Patient Records regulations: The Federal rules restrict any use of the information to criminally investigate or prosecute any alcohol or drug abuse patient.[facility] the event this information is protected by the Federal Confidentiality of Alcohol and Drug Abuse Patient Records regulations: The Federal rules restrict any use of the information to criminally investigate or prosecute any alcohol or drug abuse patient.[facility] Center[facility] the event this information is protected by the Federal Confidentiality of Alcohol and Drug Abuse Patient Records regulations: The Federal rules restrict any use of the information to criminally investigate or prosecute any alcohol or drug abuse patient.[facility] Center[facility] the event this information is protected by the Federal Confidentiality of Alcohol and Drug Abuse Patient Records regulations: The Federal rules restrict any use of the information to criminally investigate or prosecute any alcohol or drug abuse patient.[facility] CenterIn the event this information is protected by the Federal Confidentiality of Alcohol and Drug Abuse Patient Records regulations: The Federal rules restrict any use of the information to criminally investigate or prosecute any alcohol or drug abuse patient.[facility] CenterIn the event this information is protected by the Federal Confidentiality of Alcohol and Drug Abuse Patient Records regulations: The Federal rules restrict any use of the information to criminally investigate or prosecute any alcohol or drug abuse patient.[facility] CenterIn the event this information is protected by the Federal Confidentiality of Alcohol and Drug Abuse Patient Records regulations: The Federal rules restrict any use of the information to criminally investigate or prosecute any alcohol or drug abuse patient.[facility] CenterIn the event this information is protected by the Federal Confidentiality of Alcohol and Drug Abuse Patient Records regulations: The Federal rules restrict any use of the information to criminally investigate or prosecute any alcohol or drug abuse patient.[facility] CenterIn the event this information is protected by the Federal Confidentiality of Alcohol and Drug Abuse Patient Records regulations: The Federal rules restrict any use of the information to criminally investigate or prosecute any alcohol or drug abuse patient.[facility] CenterIn the event this information is protected by the Federal Confidentiality of Alcohol and Drug Abuse Patient Records regulations: The Federal rules restrict any use of the information to criminally investigate or prosecute any alcohol or drug abuse patient.[facility] CenterIn the event this information is protected by the Federal Confidentiality of Alcohol and Drug Abuse Patient Records regulations: The Federal rules restrict any use of the information to criminally investigate or prosecute any alcohol or drug abuse patient.[facility] CenterIn the event this information is protected by the Federal Confidentiality of Alcohol and Drug Abuse Patient Records regulations: The Federal rules restrict any use of the information to criminally investigate or prosecute any alcohol or drug abuse patient.[facility]In the event this information is protected by the Federal Confidentiality of Alcohol and Drug Abuse Patient Records regulations: The Federal rules restrict any use of the information to criminally investigate or prosecute any alcohol or drug abuse patient.[facility] CenterIn the event this information is protected by the Federal Confidentiality of Alcohol and Drug Abuse Patient Records regulations: The Federal rules restrict any use of the information to criminally investigate or prosecute any alcohol or drug abuse patient.[facility] CenterIn the event this information is protected by the Federal Confidentiality of Alcohol and Drug Abuse Patient Records regulations: The Federal rules restrict any use of the information to criminally investigate or prosecute any alcohol or drug abuse patient.[facility] CenterIn the event this information is protected by the Federal Confidentiality of Alcohol and Drug Abuse Patient Records regulations: The Federal rules restrict any use of the information to criminally investigate or prosecute any alcohol or drug abuse patient.[facility] CenterIn the event this information is protected by the Federal Confidentiality of Alcohol and Drug Abuse Patient Records regulations: The Federal rules restrict any use of the information to criminally investigate or prosecute any alcohol or drug abuse patient.[facility] CenterIn the event this information is protected by the Federal Confidentiality of Alcohol and Drug Abuse Patient Records regulations: The Federal rules restrict any use of the information to criminally investigate or prosecute any alcohol or drug abuse patient.[facility] CenterIn the event this information is protected by the Federal Confidentiality of Alcohol and Drug Abuse Patient Records regulations: The Federal rules restrict any use of the information to criminally investigate or prosecute any alcohol or drug abuse patient.[facility] CenterIn the event this information is protected by the Federal Confidentiality of Alcohol and Drug Abuse Patient Records regulations: The Federal rules restrict any use of the information to criminally investigate or prosecute any alcohol or drug abuse patient.[facility] CenterIn the event this information is protected by the Federal Confidentiality of Alcohol and Drug Abuse Patient Records regulations: The Federal rules restrict any use of the information to criminally investigate or prosecute any alcohol or drug abuse patient.[facility] CenterIn the event this information is protected by the Federal Confidentiality of Alcohol and Drug Abuse Patient Records regulations: The Federal rules restrict any use of the information to criminally investigate or prosecute any alcohol or drug abuse patient.[facility] CenterIn the event this information is protected by the Federal Confidentiality of Alcohol and Drug Abuse Patient Records regulations: The Federal rules restrict any use of the information to criminally investigate or prosecute any alcohol or drug abuse patient.[facility] CenterIn the event this information is protected by the Federal Confidentiality of Alcohol and Drug Abuse Patient Records regulations: The Federal rules restrict any use of the information to criminally investigate or prosecute any alcohol or drug abuse patient.[facility] CenterIn the event this information is protected by the Federal Confidentiality of Alcohol and Drug Abuse Patient Records regulations: The Federal rules restrict any use of the information to criminally investigate or prosecute any alcohol or drug abuse patient.[facility] CenterIn the event this information is protected by the Federal Confidentiality of Alcohol and Drug Abuse Patient Records regulations: The Federal rules restrict any use of the information to criminally investigate or prosecute any alcohol or drug abuse patient.[facility] CenterIn the event this information is protected by the Federal Confidentiality of Alcohol and Drug Abuse Patient Records regulations: The Federal rules restrict any use of the information to criminally investigate or prosecute any alcohol or drug abuse patient.[facility] CenterIn the event this information is protected by the Federal Confidentiality of Alcohol and Drug Abuse Patient Records regulations: The Federal rules restrict any use of the information to criminally investigate or prosecute any alcohol or drug abuse patient.[facility] CenterIn the event this information is protected by the Federal Confidentiality of Alcohol and Drug Abuse Patient Records regulations: The Federal rules restrict any use of the information to criminally investigate or prosecute any alcohol or drug abuse patient.[facility] CenterIn the event this information is protected by the Federal Confidentiality of Alcohol and Drug Abuse Patient Records regulations: The Federal rules restrict any use of the information to criminally investigate or prosecute any alcohol or drug abuse patient.[facility] CenterIn the event this information is protected by the Federal Confidentiality of Alcohol and Drug Abuse Patient Records regulations: The Federal rules restrict any use of the information to criminally investigate or prosecute any alcohol or drug abuse patient.[facility] CenterIn the event this information is protected by the Federal Confidentiality of Alcohol and Drug Abuse Patient Records regulations: The Federal rules restrict any use of the information to criminally investigate or prosecute any alcohol or drug abuse patient.[facility] CenterIn the event this information is protected by the Federal Confidentiality of Alcohol and Drug Abuse Patient Records regulations: The Federal rules restrict any use of the information to criminally investigate or prosecute any alcohol or drug abuse patient.[facility]In the event this information is protected by the Federal Confidentiality of Alcohol and Drug Abuse Patient Records regulations: The Federal rules restrict any use of the information to criminally investigate or prosecute any alcohol or drug abuse patient.[facility]In the event this information is protected by the Federal Confidentiality of Alcohol and Drug Abuse Patient Records regulations: The Federal rules restrict any use of the information to criminally investigate or prosecute any alcohol or drug abuse patient.[facility]In the event this information is protected by the Federal Confidentiality of Alcohol and Drug Abuse Patient Records regulations: The Federal rules restrict any use of the information to criminally investigate or prosecute any alcohol or drug abuse patient.[facility]In the event this information is protected by the Federal Confidentiality of Alcohol and Drug Abuse Patient Records regulations: The Federal rules restrict any use of the information to criminally investigate or prosecute any alcohol or drug abuse patient.[facility]In the event this information is protected by the Federal Confidentiality of Alcohol and Drug Abuse Patient Records regulations: The Federal rules restrict any use of the information to criminally investigate or prosecute any alcohol or drug abuse patient.[facility]In the event this information is protected by the Federal Confidentiality of Alcohol and Drug Abuse Patient Records regulations: The Federal rules restrict any use of the information to criminally investigate or prosecute any alcohol or drug abuse patient.[facility]In the event this information is protected by the Federal Confidentiality of Alcohol and Drug Abuse Patient Records regulations: The Federal rules restrict any use of the information to criminally investigate or prosecute any alcohol or drug abuse patient.[facility]In the event this information is protected by the Federal Confidentiality of Alcohol and Drug Abuse Patient Records regulations: The Federal rules restrict any use of the information to criminally investigate or prosecute any alcohol or drug abuse patient.[facility]In the event this information is protected by the Federal Confidentiality of Alcohol and Drug Abuse Patient Records regulations: The Federal rules restrict any use of the information to criminally investigate or prosecute any alcohol or drug abuse patient.[facility]In the event this information is protected by the Federal Confidentiality of Alcohol and Drug Abuse Patient Records regulations: The Federal rules restrict any use of the information to criminally investigate or prosecute any alcohol or drug abuse patient.[facility]In the event this information is protected by the Federal Confidentiality of Alcohol and Drug Abuse Patient Records regulations: The Federal rules restrict any use of the information to criminally investigate or prosecute any alcohol or drug abuse patient.[facility]In the event this information is protected by the Federal Confidentiality of Alcohol and Drug Abuse Patient Records regulations: The Federal rules restrict any use of the information to criminally investigate or prosecute any alcohol or drug abuse patient.[facility]In the event this information is protected by the Federal Confidentiality of Alcohol and Drug Abuse Patient Records regulations: The Federal rules restrict any use of the information to criminally investigate or prosecute any alcohol or drug abuse patient.[facility]In the event this information is protected by the Federal Confidentiality of Alcohol and Drug Abuse Patient Records regulations: The Federal rules restrict any use of the information to criminally investigate or prosecute any alcohol or drug abuse patient.[facility]In the event this information is protected by the Federal Confidentiality of Alcohol and Drug Abuse Patient Records regulations: The Federal rules restrict any use of the information to criminally investigate or prosecute any alcohol or drug abuse patient.[facility]In the event this information is protected by the Federal Confidentiality of Alcohol and Drug Abuse Patient Records regulations: The Federal rules restrict any use of the information to criminally investigate or prosecute any alcohol or drug abuse patient.[facility]In the event this information is protected by the Federal Confidentiality of Alcohol and Drug Abuse Patient Records regulations: The Federal rules restrict any use of the information to criminally investigate or prosecute any alcohol or drug abuse patient.[facility]In the event this information is protected by the Federal Confidentiality of Alcohol and Drug Abuse Patient Records regulations: The Federal rules restrict any use of the information to criminally investigate or prosecute any alcohol or drug abuse patient.[facility]In the event this information is protected by the Federal Confidentiality of Alcohol and Drug Abuse Patient Records regulations: The Federal rules restrict any use of the information to criminally investigate or prosecute any alcohol or drug abuse patient.[facility]In the event this information is protected by the Federal Confidentiality of Alcohol and Drug Abuse Patient Records regulations: The Federal rules restrict any use of the information to criminally investigate or prosecute any alcohol or drug abuse patient.[facility]In the event this information is protected by the Federal Confidentiality of Alcohol and Drug Abuse Patient Records regulations: The Federal rules restrict any use of the information to criminally investigate or prosecute any alcohol or drug abuse patient.[facility]In the event this information is protected by the Federal Confidentiality of Alcohol and Drug Abuse Patient Records regulations: The Federal rules restrict any use of the information to criminally investigate or prosecute any alcohol or drug abuse patient.[facility]In the event this information is protected by the Federal Confidentiality of Alcohol and Drug Abuse Patient Records regulations: The Federal rules restrict any use of the information to criminally investigate or prosecute any alcohol or drug abuse patient.[facility]In the event this information is protected by the Federal Confidentiality of Alcohol and Drug Abuse Patient Records regulations: The Federal rules restrict any use of the information to criminally investigate or prosecute any alcohol or drug abuse patient.[facility]In the event this information is protected by the Federal Confidentiality of Alcohol and Drug Abuse Patient Records regulations: The Federal rules restrict any use of the information to criminally investigate or prosecute any alcohol or drug abuse patient.[facility]In the event this information is protected by the Federal Confidentiality of Alcohol and Drug Abuse Patient Records regulations: The Federal rules restrict any use of the information to criminally investigate or prosecute any alcohol or drug abuse patient.[facility]In the event this information is protected by the Federal Confidentiality of Alcohol and Drug Abuse Patient Records regulations: The Federal rules restrict any use of the information to criminally investigate or prosecute any alcohol or drug abuse patient.[facility]In the event this information is protected by the Federal Confidentiality of Alcohol and Drug Abuse Patient Records regulations: The Federal rules restrict any use of the information to criminally investigate or prosecute any alcohol or drug abuse patient.[facility]In the event this information is protected by the Federal Confidentiality of Alcohol and Drug Abuse Patient Records regulations: The Federal rules restrict any use of the information to criminally investigate or prosecute any alcohol or drug abuse patient.[facility]In the event this information is protected by the Federal Confidentiality of Alcohol and Drug Abuse Patient Records regulations: The Federal rules restrict any use of the information to criminally investigate or prosecute any alcohol or drug abuse patient.[facility]In the event this information is protected by the Federal Confidentiality of Alcohol and Drug Abuse Patient Records regulations: The Federal rules restrict any use of the information to criminally investigate or prosecute any alcohol or drug abuse patient.[facility]In the event this information is protected by the Federal Confidentiality of Alcohol and Drug Abuse Patient Records regulations: The Federal rules restrict any use of the information to criminally investigate or prosecute any alcohol or drug abuse patient.[facility]In the event this information is protected by the Federal Confidentiality of Alcohol and Drug Abuse Patient Records regulations: The Federal rules restrict any use of the information to criminally investigate or prosecute any alcohol or drug abuse patient.[facility]In the event this information is protected by the Federal Confidentiality of Alcohol and Drug Abuse Patient Records regulations: The Federal rules restrict any use of the information to criminally investigate or prosecute any alcohol or drug abuse patient.[facility]In the event this information is protected by the Federal Confidentiality of Alcohol and Drug Abuse Patient Records regulations: The Federal rules restrict any use of the information to criminally investigate or prosecute any alcohol or drug abuse patient.[facility]In the event this information is protected by the Federal Confidentiality of Alcohol and Drug Abuse Patient Records regulations: The Federal rules restrict any use of the information to criminally investigate or prosecute any alcohol or drug abuse patient.[facility]In the event this information is protected by the Federal Confidentiality of Alcohol and Drug Abuse Patient Records regulations: The Federal rules restrict any use of the information to criminally investigate or prosecute any alcohol or drug abuse patient.[facility]In the event this information is protected by the Federal Confidentiality of Alcohol and Drug Abuse Patient Records regulations: The Federal rules restrict any use of the information to criminally investigate or prosecute any alcohol or drug abuse patient.[facility]In the event this information is protected by the Federal Confidentiality of Alcohol and Drug Abuse Patient Records regulations: The Federal rules restrict any use of the information to criminally investigate or prosecute any alcohol or drug abuse patient.[facility]In the event this information is protected by the Federal Confidentiality of Alcohol and Drug Abuse Patient Records regulations: The Federal rules restrict any use of the information to criminally investigate or prosecute any alcohol or drug abuse patient.[facility]In the event this information is protected by the Federal Confidentiality of Alcohol and Drug Abuse Patient Records regulations: The Federal rules restrict any use of the information to criminally investigate or prosecute any alcohol or drug abuse patient.[facility]In the event this information is protected by the Federal Confidentiality of Alcohol and Drug Abuse Patient Records regulations: The Federal rules restrict any use of the information to criminally investigate or prosecute any alcohol or drug abuse patient.[facility]In the event this information is protected by the Federal Confidentiality of Alcohol and Drug Abuse Patient Records regulations: The Federal rules restrict any use of the information to criminally investigate or prosecute any alcohol or drug abuse patient.[facility]In the event this information is protected by the Federal Confidentiality of Alcohol and Drug Abuse Patient Records regulations: The Federal rules restrict any use of the information to criminally investigate or prosecute any alcohol or drug abuse patient.[facility]In the event this information is protected by the Federal Confidentiality of Alcohol and Drug Abuse Patient Records regulations: The Federal rules restrict any use of the information to criminally investigate or prosecute any alcohol or drug abuse patient.[facility]In the event this information is protected by the Federal Confidentiality of Alcohol and Drug Abuse Patient Records regulations: The Federal rules restrict any use of the information to criminally investigate or prosecute any alcohol or drug abuse patient.[facility]In the event this information is protected by the Federal Confidentiality of Alcohol and Drug Abuse Patient Records regulations: The Federal rules restrict any use of the information to criminally investigate or prosecute any alcohol or drug abuse patient.[facility] FOR RECORDS PERTAINING TO PATIENTS [...] BE BASED ON THE PRIMARY CLINICAL RECORDS. [facility] [employer] [facility]. provides no warranty or guarantee of the accuracy or completeness of information in this document.
[2025-03-03 08:29] VITALS: BP 134/66; PULSE 76; O2SAT 99
[2025-03-03 08:31] VITALS: BP 141/84; PULSE 70; O2SAT 100
[2025-03-03] MEDS: METHYLPREDNISOLONE ACETATE 40 MG/ML VIAL INJ (08:31)
[2025-03-03] MEDS: BUPIVACAINE HCL 0.25% PF 25 MG/10 ML VIAL 5 ML INJ (08:31)
--- NOTE | 2025-03-03 08:31 | W.PM.PROCNOT ---
Date of procedure: 03/03/25 Pre-op diagnosis: Pain due to left knee osteoarthritis Post-op diagnosis: same as pre-op Procedure: Procedure: Left genicular nerve block Medications: Bupivacaine 0.25% 4cc, depomedrol 40mg The patient was taken to the procedures suite and positioned in the supine position. I explained the details of the procedure to the patient including the risks, benefits and alternatives. We had an informed discussion and the patient verbalized understanding and signed the consent form. All questions were answered appropriately.? A 'time out' procedure was performed. The patient was identified, the chart was reviewed, and all allergies were confirmed. Laterality was conducted and marked. The left knee was marked with a sterile marking pen, prepped times three, and sterilely draped.? Under fluoroscopic guidance, branches of the genicular nerves were localized.? First the superior medial genicular nerve was localized where the femoral shaft meets the medial epicondyle.? Skin was anesthetized with 1% lidocaine.? A 25-gauge 3.5 in needle was advanced in a coaxial manner in the AP view.? This was repeated on the superior lateral genicular nerve where the femoral shaft meets the lateral epicondyle and the inferior medial genicular nerve where the medial tibial shaft meets the tibial epicondyle. After negative aspiration for blood or other bodily fluids, 1cc of medication was injected at each of the three sites. The needles were removed and the sites of injection were bandaged. The patient was transported to the postoperative area in good condition. Nerve origins: Lateral superior genicular - common peroneal division of sciatic nerve Medial superior genicular - Tibial nerve, obturator nerve, femoral nerve? Medial inferior genicular - Tibial nerve Anesthesia: Local Surgeon: Priscilla Robledo Pathology: none sent Condition: stable Disposition: no change
== END 2025-03-03 08:37 | disposition home or self-care (01) ==
PROVIDERS: PCP Family Medicine; Visit Provider Anesthesiology
DX: M17.12 Unilateral primary osteoarthritis, left knee (principal)
CPT/HCPCS: 64454; J0665; J1010

== ENCOUNTER 2025-03-05 09:24 | Outpatient (RCR) | payer MEDICARE, OTHER, SELFPAY ==
[2025-03-04 09:27] LABS: Calcium 9.1 mg/dL (8.5-10.1); Estimated GFR (African America >60 (>=60 mL/min/1.73m^2); Estimated GFR (Non-African Ame >60 (>=60 mL/min/1.73m^2)
[2025-03-05] MEDS: DENOSUMAB 60 MG/ML SYRINGE SUBQ (10:19)
== END 2025-03-08 23:59 | disposition home or self-care (01) ==
LOC: LAB 09:24
PROVIDERS: PCP Family Medicine; Visit Provider Physician Assistant
DX: M81.0 Age-related osteoporosis without current pathological fracture (principal); Z78.0 Asymptomatic menopausal state; M85.80 Other specified disorders of bone density and structure, unspecified site
CPT/HCPCS: 36415; 82310; 82565; J0897

== ENCOUNTER 2025-05-14 14:54 | Outpatient (OUT) | payer MEDICARE, OTHER, SELFPAY ==
--- OUTSIDE RECORDS SUMMARY | 2025-05-14 14:56 | XMS_ITS | Clinical Summary ---
Author Organization [facility] Address [address] [place] [id number] Care Team Providers Care Account Maintenance Representative Name Role Phone Leon Colin Primary Care Provider [phone] Tapan Corona MD Unavailable [phone] Naheed Elias PA-C Unavailable [phone] Maryuri Rodriguez Unavailable Unavailable Allergies No known active allergies Medications MedicationSigDispense QuantityRefillsLast FilledStart DateEnd DateStatus oxybutynin ER (DITROPAN XL) 15 mg 24 hr Extended Rel Tab Take 15 mg by mouth.11/11/2022ctive aspirin, enteric coated (ASPIRIN, ENTERIC COATED) 81 mg EC tablet Take 81 mg by mouth once daily.Active omeprazole (PRILOSEC) 40 mg capsule Take 40 mg by mouth once daily.07/09/2018Active ondansetron orally disintegrating (ZOFRAN ODT) 8 mg disintegrating tablet Take 1 tablet by mouth every 8 hours as needed for nausea/vomiting. 90 tablet 9:47 AM EDT02/06/2024ctive LEXAPRO 10 mg tablet 06/13/2024ctive meloxicam (MOBIC) 15 mg tablet Take 15 mg by mouth once daily.Active INV SEMAGLUTIDE 0.25 MG/0.5 ML INJECTION (IRB 24-915) Inject 0.25 mg subcutaneously one time a week. For Investigational Drug Use Only. PI: Ruthann Cisneros MD.Active Active Problems ProblemNoted DateDiagnosed DatePartial small bowel xrqlyyffwgt85/29/2024 Ileostomy bag dwlyjqk7108/31/2023Ileostomy knurfrj3408/26/2023ectal adenocarcinoma 08/25/2023 Cancer Staging: Pathologic stage from 08/31/2023: ypT0, pN0 - Signed by Zeb Marshall MD on 08/31/2023 Atrial tgbhpikvnyiw03 Assessment & Plan (08/11/2023 12:44 PM EST): Assessment: paroxysmal, one instance. chemo induced. No thinner. Has been on aspirin preventatively. RRR today, no murmur Per cardiology ,Dr. Canales: After receiving chemotherapy the patient admitted to the hospital for evaluation for chest pain CTA of the chest was negative. Her echocardiogram was normal referred for a Lexiscan myocardial fusion study which done at the [facility] and was able to retrieve the result and it was normal and I have reviewed that with the patient. GERD (gastroesophageal reflux disease) Assessment & Plan (08/11/2023 12:41 PM EST): Assessment: Managed and stable with current medication. Denies difficulty swallowing or any bleeding. Zyevjlzuejx68Hyperlipidemia Assessment & Plan (08/11/2023 12:41 PM EST): Assessment: diet controlled Mixed anxiety depressive nfkarqeq81 Assessment & Plan (08/11/2023 12:42 PM EST): Assessment: stable with current medication regimen Iron deficiency anemia, rroeiupenon61/28/2023 Assessment & Plan (08/14/2023 11:46 AM EST): Assessment: Stable. Denies bleeding. States chemo induced. Hemoglobin (g/dL) Date Value 08/11/2023 12.5 07/13/2023 9.4 07/05/2023 9.9 Rectal uswqwk6706/14/2023 Assessment & Plan (08/11/2023 12:42 PM EST): Assessment: last chemo 06/2023, presents for surgical intervention Essential eariemdzvhyd68 Assessment & Plan (08/11/2023 12:40 PM EST): Assessment: stable and compliant with current medications Last 5 Encounter BP Readings: Date: BP: 08/11/2023 105/75 08/07/2023 104/62 07/27/2023 104/68 07/27/2023 145/68 07/21/2023 122/66 Personal history of malignant melanoma of skin04/28/2009Osteoarthrosis, unspecified whether generalized or localized, ankle and foot12/20/2005 Resolved Problems ProblemNoted DateDiagnosed DateResolved DateSmall bowel cfaezpwotyf31/22/2024 09/04/2023Encounter for ostomy care qywfmkxda27 Encounters DateTypeDepartmentCare OzzbAejbypxbeme44/08/2025Telephone Radiation Oncology [address] [place] [address] [place] [address] Del Aguilar MD Patient Pdbgrp0603/26/20257895Ahymlj78/04/2025 8:34 AM EDTAnesthesia Event Procedures [address] [place] [address] Randy Nicole MD Hootman, Jamie, LATHE SCALPER OPERATOR.ECHOCARDIOGRAPHER 03/13/2025 7:24 AM EDT - 03/13/2025 11:59 PM EDTHospital Encounter Procedures [address] [place] [address] Laisha Singer MD Hootman, Jamie, LATHE SCALPER OPERATOR.ECHOCARDIOGRAPHER Randy Nicole MD Abraham, Leah, KAYA Encounter for follow-up surveillance of rectal cancer [Z08, Z85.048] Discharge Disposition: Home03/13/2025Results Follow-Up Hematology [address] [place] [address] Tapan Corona MD 03/12/2025GI Preprocedure Call [facility] Surgery [address] [place] [address] Laisha Singer MD 03/05/2025 Patient Msg Hematology [address] [place] [address] Tapan Corona MD Ponytaqinhcf47/21/2025 [place] [address] Provider, [facility] Colonoscopy Geologic Technician Udalfamwfs33/14/2025 2:00 PM EDTVisit (SP) Office Hematology [address] [place] [address] Tapan Corona MD History of rectal cancer (Primary Dx)02/20/2025 1:20 PM EDTOffice Visit Colorectal Surgery [id number] [place] [address] Laisha Singer MD Encounter for follow-up surveillance of rectal cancer (Primary Dx); Low anterior resection lrcukxwp26/14/8101Zqlrvq10/14/2025Education Colorectal Surgery [address] [address] [place], [place] [id number] Russel Lindquist RN history of colon ioxqad0602/19/2025 1:00 PM EDTOT/PT/Speech Visit Physical Therapy [address] [facility] [place] [address] Therese Anthony, PT Muscle spasm (Primary Dx)02/11/2025Results Follow-Up Hematology [address] [place] [address] Tapan Corona MD 02/11/2025Orders Only Hematology [address] [place] [address] Tapan Corona MD History of rectal cancer (Primary Dx); Rectal cancer (HCC)from Last 3 Months Immunizations ImmunizationAdministration DatesNext DueCOVID-19 original vaccine, full dose, monovalent (MODERNA)09/30/2020OVID-19 vaccine, age 12+ yr, bivalent (MODERNA) 09/29/2020influenza (IIV3) vaccine, trivalent (AFLURIA, FLULAVAL, FLUVIRIN, FLUZONE)04/09/2017influenza (IIV3) vaccine, trivalent, PF (AFLURIA, FLUARIX, FLULAVAL, FLUVIRIN, FLUZONE)04/09/2014influenza (IIV4) vaccine, age 6 mo - 64 yr, quadrivalent, PF (AFLURIA, FLUARIX, FLULAVAL, FLUZONE)05/07/2019,04/18/2017 influenza (IIV4) vaccine, quadrivalent (AFLURIA, FLULAVAL, FLUZONE)05/07/2019, 04/18/2017influenza (LAIV) vaccine, nasal, unspecified jwikkcbaihb51/29/2019 influenza (ccIIV3) vaccine, age 6+ mo, trivalent, PF (FLUCELVAX)04/09/2014 influenza vaccine, split virus07/13/2013influenza vaccine, unspecified dogzalszaxt69/04/2014pneumococcal polysaccharide (PPV23) vaccine, 23 valent (PNEUMOVAX 23)04/09/2015,04/09/2014,07/25/2013zoster (RZV) vaccine, recombinant (SHINGRIX)08/08/2021,02/26/2021zoster (ZVL) vaccine, live (ZOSTAVAX)11/04/2013 Family History Medical HistoryRelationCommentsCoronary Artery DiseaseFatherEmphysemaFatherHeart diseaseFatherHyperlipidemiaFatherHypertensionFatherHypertensionMotherLung Cancer MotherRelationStatusCommentsFatherDeceasedMotherDeceased Social History Tobacco UseTypesPacks/DayYears UsedDateSmoking Tobacco: NeverPassive Smoke Exposure: PastSmokeless Tobacco: Never Tobacco Cessation:Counseling Given: Not Answered Alcohol UseStandard Drinks/WeekCommentsYes0 (1 standard drink = 0.6 oz pure alcohol)2 times a month if [facility] UtilitiesAnswerDate RecordedIn the past 12 months has the [employer], gas, oil, or water [employer] threatened to shut off services in your home?No11/09/2023Overall Financial Resource Strain (CARDIA) AnswerDate RecordedHow hard is it for you to pay for the very basics like food, housing, medical care, and heating?Patient emmrstdc16/22/2024PHQ-2AnswerDate RecordedPHQ-2 xosei926Hunger Vital SignAnswerDate RecordedWithin the past 12 months, you worried that your food would run out before you got the money to buymore.Never true11/09/2023Within the past 12 months, the food you bought just didn't last and you didn't have money to get more.Never true 11/09/2023RAPARE - TransportationAnswerDate RecordedIn the past 12 months, has lack of transportation kept you from medical appointments or from getting medications?No11/09/2023In the past 12 months, has lack of transportation kept you from meetings, work, or from getting things needed for daily living?No 11/09/2023Housing Stability Vital SignAnswerDate RecordedIn the last 12 months, was there a time when you were not able to pay the mortgage or rent on time?No 11/09/2023Number of Places Lived in the Last YearNot on file11/09/2023In the last 12 months, was there a time when you did not have a steady place to sleep or slept in [facility] (including now)?No11/09/2023CommentsNoSex and Gender InformationValueDate RecordedSex Assigned at BirthNot on fileLegal Sex Wrgyao8606/10/2012 9:50 AM ESTGender IdentityNot on fileSexual OrientationNot on file Last Filed Vital Signs Vital SignReadingTime TakenCommentsBlood Frsjzito397/9009 9:30 AM EDT Ymlzg8664 9:30 AM EDVWemboobjssq55.1 ??C (97 ??F)03/13/2025 9:06 AM EDT Respiratory Hqqp454003/13/2025 9:30 AM EDTOxygen Hworsvyqjm607%03/13/2025 9:30 AM EDTInhaled Oxygen Concentration--Fzucjn49.3 kg (146 lb 2.6 oz)02/20/2025 2:04 PM TDGIyblht630.6 cm (5' 4 )02/20/2025 2:04 PM EDTBody Mass Index25.0902/20/2025 2:04 PM EDT Plan of Treatment DateTypeDepartmentCare Team (Latest Contact Info)Nveegeiypcp62/12/2026 12:00 PM ESTVisit (SP) Office Hematology [address] [facility] [address] [place], [place] [id number] Tapan Corona MD [address] [place] [address] F/U with Dr. Corona 08/23/25, labs 1 week priorHealth MaintenanceDue DateLast DoneCommentsAnnual PCP Team Chronic Disease Visit1971Hepatitis C Screening 1971DTaP,Tdap,Td Vaccine (1 - Tdap)1972CT Zdccxwvjkpxk35/15/1999 Cologuard (FIT-DNA)1998Fecal Occult Blood1998Lipid Screening 1998Pneumococcal Vaccine: 50+ (2 of 2 - PCV), 04/09/2014, 07/25/2013Medicare Annual Wellness Visit09/07/2018Mammogram Kybxxqdsd70, 09/21/2018Advance Directive Vqfjerjzyi20/01/2025 Covid-19 Vaccine ( season)/, 09/29/2020, 09/03/2020Influenza Vaccine (#1)502/07/2024, 05/07/2019, 05/07/2019, Additional history awjshaEidfcgykhux60/04/202609/10/2024Diabetes Screening 8/10/2024, 08/19/2024, 05/08/2024, Additional history exists Colorectal Cancer Roufcpegg41/18/6577Ervvlqzyitvkv22/18/202901/, 06/08/2023, 03/16/2023RSV Vaccine (1 - 1-dose 75+ series)2028Shingrix BhxhlcwDwhqbeols56/30/2022, 02/26/2021, 11/04/2013one Density Screening Vrmvfgeos30/27/2023 Procedures Procedure NamePriorityDate/TimeAssociated DiagnosisCommentsCOLONOSCOPY SCREENING Zqfsqzx1703/13/2025 8:30 AM EDT Encounter for follow-up surveillance of rectal cancer EXTERNAL LAB03/04/2025 3:35 PM EDT PT ED DIGESTIVE WJSYRED8102/21/2025 PT ED DIGESTIVE WXFVDWC7402/21/2025 PT ED PATIENT IOXRJHXKREB94/15/2025 COMPREHENSIVE METABOLIC RLZCKXwkmdyo47/04/2025 12:42 PM EDT History of rectal cancer Rectal cancer (HCC) MXCLYAMHXKJSMLqpuixb72/18/2024 2:25 PM EST Rectal cancer (HCC) from Last 3 Months or Most Recently Relevant to Health Maintenance Results * COLONOSCOPY SCREENING (03/13/2025 8:30 AM EDT)Anatomical RegionLaterality ModalityOtherSpecimen (Source)Anatomical Location / LateralityCollection Method / VolumeCollection TimeReceived Time03/13/2025 8:30 AM EDT Narrative 03/13/2025 9:12 AM EDT [facility] Gastrointestinal Endoscopy Patient Name: Cristina Kelley Procedure Date: 03/13/2025 8:30 AM Date of : 1955 Admit Type: Outpatient Age: 69 Room: [place] [address] Gender: Female Note Status: Finalized Attending MD: Laisha Singer MD, [id number] Procedure: ? Colonoscopy Indications: ? Surveillance: Personal history of piecemeal removal ? of adenoma on last colonoscopy 6 months ago, High ? risk colon cancer surveillance: Personal history of ? rectal cancer Providers: ? Laisha Singer MD Patient Profile: ? Last Colonoscopy: 2024. Referring Physician: ?? Laisha Singer MD (Referring MD) Medicines: ? Monitored Anesthesia Care Complications: ? No immediate complications. Estimated blood loss: ? None. Requesting Provider: ?? Procedure: ? Pre-Anesthesia Assessment: ? - Prior to the procedure, a History and Physical ? was performed, and patient medications and ? allergies were reviewed. The patient's tolerance of ? previous anesthesia was also reviewed. The risks ? and benefits of the procedure and the sedation ? options and risks were discussed with the patient. ? All questions were answered, and informed consent ? was obtained. Prior Anticoagulants: The patient has ? taken no anticoagulant or antiplatelet agents ? except for aspirin. ASA Grade Assessment: II - A ? patient with mild systemic disease. After reviewing ? the risks and benefits, the patient was deemed in ? satisfactory condition to undergo the procedure. ? After I obtained informed consent, the scope was ? passed under direct vision. Throughout the ? procedure, the patient's blood pressure, pulse, and ? oxygen saturations were monitored continuously. The ? Colonoscope was introduced through the anus and ? advanced to the cecum, identified by appendiceal ? orifice and ileocecal valve. The colonoscopy was ? performed without difficulty. The patient tolerated ? the procedure well. The quality of the bowel ? preparation was adequate. The ileocecal valve, ? appendiceal orifice, and rectum were photographed. Scope Withdrawal Time: 0 hours 14 minutes 42 seconds Moderate Sedation: ? MAC anesthesia was administered by the anesthesia team. Total Procedure Duration: 0 hours 23 minutes 30 seconds Findings: ? A post-surgical anastomosis was found on digital exam. This was found ? to be patent. Pertinent negatives include normal sphincter tone. ? A tattoo was seen in the ascending colon. The tattoo site appeared ? normal. There was no evidence of residual polyp tissue. ? There was evidence of a prior end-to-end colo-rectal anastomosis in ? the distal rectum. This was patent and was characterized by healthy ? appearing mucosa. The anastomosis was traversed. ? Non-bleeding internal hemorrhoids were found during endoscopy. The ? hemorrhoids were mild. ? The exam was otherwise without abnormality. Impression: ?- Patent post-surgical anastomosis found on digital ? exam. ? - A tattoo was seen in the ascending colon. The ? tattoo site appeared normal. There was no evidence ? of residual polyp tissue. ? - Patent end-to-end colo-rectal anastomosis, ? characterized by healthy appearing mucosa. ? - Non-bleeding internal hemorrhoids. ? - The examination was otherwise normal. ? - No specimens collected. Recommendation: ?- Resume previous diet. ? - Continue present medications. ? - Repeat colonoscopy in 3 years for surveillance. ? - Return to my office as previously scheduled. ? - Patient has a contact number available for ? emergencies. The signs and symptoms of potential ? delayed complications were discussed with the ? patient. Return to normal activities tomorrow. ? Written discharge instructions were provided to the ? patient. Procedure Code(s): ? --- Professional --- ? G0105, Colorectal cancer screening; colonoscopy on ? individual at high risk Diagnosis Code(s): ? --- Professional --- ? Z98.0, Intestinal bypass and anastomosis status ? Z12.11, Encounter for screening for malignant ? neoplasm of colon ? Z85.048, Personal history of other malignant ? neoplasm of rectum, rectosigmoid junction, and anus ? K64.8, Other hemorrhoids ? Z09, Encounter for follow-up examination after ? completed treatment for conditions other than ? malignant neoplasm ? Z86.0101, Personal history of adenomatous and ? serrated colon polyps CPT copyright 2020 [employer]. All rights reserved. The codes documented in this report are preliminary and upon controls project engineer review may be revised to meet current compliance requirements. Attending Participation: ? I was present and participated during the entire procedure, including ? non-guzman portions. Scope In: 8:40:28 AM Scope Out: 9:03:58 AM MD Laisha Quinteros MD 03/13/2025 9:10:44 AM This report has been signed electronically by Laisha Singer MD Number of Addenda: 0 Note Initiated On: 03/13/2025 8:30 AM Estimated Blood Loss: ? Estimated blood loss: none. Authorizing ProviderResult TypeResult StatusLaisha Singer MDDIGESTIVE DISEASEFinal Result * EXTERNAL LAB (03/04/2025 3:35 PM EDT) Narrative Authorizing ProviderResult TypeResult StatusExternal Provider PA-CLABORATORY Final Result * PT ED PATIENT INFORMATION (02/21/2025)Specimen (Source)Anatomical Location / LateralityCollection Method / VolumeCollection TimeReceived Time02/21/2025 Narrative [place] - 03/24/2025 Provider BAN your patient CRISTINA KELLEY has not started their [place] program, time has . [place] program: PATIENT SAFETY INSTRUCTIONS FOR HEALTHCARE SETTINGS Authorizing ProviderResult TypeResult StatusLaisha Singer MDEMMIFinal Result Performing OrganizationAddressCity/State/ZIP CodePhone Number [place] * PT ED DIGESTIVE DISEASE (02/21/2025) Only the most recent of2 resultswithin the time period is included. Specimen (Source)Anatomical Location / LateralityCollection Method / Volume Collection TimeReceived Time02/21/2025 Narrative [place] - 03/24/2025 Provider BAN your patient CRISTINA KELLEY has not started their [place] program, time has . [place] program: COLONOSCOPY Authorizing ProviderResult TypeResult StatusKristen Ban MDEMMIFinal Result Performing OrganizationAddressCity/State/ZIP CodePhone Number [place] * (ABNORMAL) COMPREHENSIVE METABOLIC PANEL (02/10/2025 12:42 PM EDT)Component ValueRef RangeTest MethodAnalysis TimePerformed AtPathologist Signature Protein, Total6.66.3 - 8.0 g/dL02/10/2025 1:[address]TNOR[address]HE [facility] LABAlbumin4.03.9 - 4.9 g/dL02/10/2025 1:[address] [facility] LABCalcium, Total9.08.5 - 10.2 mg/dL02/10/2025 1:[address] [facility] LABBilirubin, Total0.30.2 - 1.3 mg/dL 02/10/2025 1:17 PM EDTNORTMCKENZIE [facility]OR[facility] LABAlkaline Xlyxsrvsnpm22631 - 123 U/L02/10/2025 1:17 PM EDTNOJ.[facility] IIBJLB7787 - 35 U/L02/10/2025 1:17 PM EDTNORTMCKENZIE MEMORIAL [facility]ITAL CIPMSZ698 - 38 U/L02/10/2025 1:17 PM EDTNORTMCKENZIE MEMORIAL [facility] FQTJddkqsr146(H)74 - 99 mg/dL02/10/2025 1:17 PM EDTNORTMCKENZIE MEMORIAL HOSPITAL LABComment: The [place] [employer] (ADA) provides guidance for cutoff values for fasting glucose andrandom glucose. The ADA defines fasting as no [...] Standards of Medical Care in Diabetes 2016, [place] [employer]. Diabetes Care. 2016.39(Suppl 1). FRA842 - 21 mg/dL02/10/2025 1:17 PM EDTNORTMCKENZIE MEMORIAL [facility] LAB Creatinine0.670.58 - 0.96 mg/dL02/10/2025 1:17 PM EDTNORTMCKENZIE MEMORIAL [facility] VQEKzdpmt791375 - 144 mmol/L02/10/2025 1:17 PM EDTCHESTNUT [facility] LABPotassium4.13.7 - 5.1 mmol/L02/10/2025 1:17 PM EDTNORTMCKENZIE MEMORIAL [facility]ITAL JSICwhviguy65702 - 107 mmol/L02/10/2025 1:17 PM EDT [facility] DOBRC07580 - 30 mmol/L02/10/2025 1:17 PM EDT [facility] LABAnion Gap98 - 15 mmol/L02/10/2025 1:17 PM [facility] LABEstimated Glomerular Filtration Rate94 >=60 mL/min/1.73m 02/10/2025 1:17 PM [facility] LABComment:Estimated Glomerular Filtration Rate (eGFR) is calculated using the 2020 CKD-EPI creatinine equation. This equation utilizes serum creatinine, sex, and age as parameters. The creatinine assay has traceable calibration to isotope dilution- mass spectrometry. Refer to KDIGO guidelines for clinical interpretation. In patients with unstable renal function, e.g. those with acute kidney injury, the eGFRmay not accurately reflect actual GFR.Specimen (Source)Anatomical Location / LateralityCollection Method / VolumeCollection TimeReceived TimeBloodBLOOD SPECIMEN / UnknownVenipuncture / Pgswrtz4202/10/2025 12:42 PM EDT02/10/2025 12:52 PM EDT Narrative Authorizing ProviderResult TypeResult StatusTapan Corona MDLABORATORYFinal ResultPerforming OrganizationAddressCity/State/ZIP CodePhone Number [facility] [address] [place] [address] * SIGMOIDOSCOPY (07/27/2023 2:25 PM EST)Anatomical RegionLateralityModalityOther Specimen (Source)Anatomical Location / LateralityCollection Method / Volume Collection TimeReceived Time07/27/2023 2:08 PM EST Narrative 07/27/2023 2:31 PM EST [facility] Gastrointestinal Endoscopy Patient Name: Cristina Kelley Procedure Date: 07/27/2023 2:08 PM Date of : 1955 Admit Type: Outpatient Age: 67 Room: [place] [address] Gender: Female Note Status: Finalized Attending MD: Laisha Singer MD, [id number] Procedure: ? Flexible Sigmoidoscopy Indications: ? Personal history of malignant rectal neoplasm, ? Preoperative assessment Providers: ? Laisha Singer MD Patient Profile: ? Last Colonoscopy: 2022. Referring Physician: ?? Laisha Singer MD (Referring MD) Medicines: ? Monitored Anesthesia Care Complications: ? No immediate complications. Estimated blood loss: ? None. Requesting Provider: ?? Procedure: ? Pre-Anesthesia Assessment: ? - Prior to the procedure, a History and Physical ? was performed, and patient medications and ? allergies were reviewed. The patient's tolerance of ? previous anesthesia was also reviewed. The risks ? and benefits of the procedure and the sedation ? options and risks were discussed with the patient. ? All questions were answered, and informed consent ? was obtained. Prior Anticoagulants: The patient has ? taken no anticoagulant or antiplatelet agents ? except for aspirin. ASA Grade Assessment: II - A ? patient with mild systemic disease. After reviewing ? the risks and benefits, the patient was deemed in ? satisfactory condition to undergo the procedure. ? After obtaining informed consent, the scope was ? passed under direct vision. The Colonoscope was ? introduced through the anus and advanced to the ? sigmoid colon. The flexible sigmoidoscopy was ? accomplished without difficulty. The patient ? tolerated the procedure well. The quality of the ? bowel preparation was good. Moderate Sedation: ? MAC anesthesia was administered by the anesthesia team. Total Procedure Duration: 0 hours 4 minutes 50 seconds Findings: ? On perianal examination there was no palpable mass. ? A continuous area of nonbleeding ulcerated mucosa with no stigmata of ? recent bleeding was present in the distal to mid rectum spannin the ? distal to middle rectal valves with overlying plaque consistent with ? significant, but incomplete response to neoadjuvant treatment. Impression: ?- Residual disease in the mid-distal rectum ? visualized. ? - No specimens collected. Recommendation: ?- Discharge patient to home. Procedure Code(s): ? --- Professional --- ? [address], Sigmoidoscopy, flexible; diagnostic, ? including collection of specimen(s) by brushing or ? washing, when performed (separate procedure) Diagnosis Code(s): ? --- Professional --- ? K62.6, Ulcer of anus and rectum ? Z85.048, Personal history of other malignant ? neoplasm of rectum, rectosigmoid junction, and anus ? Z01.818, Encounter for other preprocedural ? examination CPT copyright 2020 [place]. All rights reserved. The codes documented in this report are preliminary and upon controls project engineer review may be revised to meet current compliance requirements. Attending Participation: ? I personally performed the entire procedure. Scope In: 2:18:06 PM Scope Out: 2:22:56 PM MD Laisha Quinteros MD 07/27/2023 2:28:08 PM This report has been signed electronically by Laisha Singer MD Number of Addenda: 0 Note Initiated On: 07/27/2023 2:08 PM Estimated Blood Loss: ? Estimated blood loss: none. Authorizing ProviderResult TypeResult StatusLaisha Singer MDDIGESTIVE DISEASEFinal Result from Last 3 Months or Most Recently Relevant to Health Maintenance Insurance Care Teams Team MemberRelationshipSpecialtyStart DateEnd Leon Colin [address] [place] [phone] PCP - GeneralFamily Medicine03/16/23 Tapan Corona MD [address] [place] [address] [place] [address] PhysicianHematology/Oncology03/22/23 Naheed Elias, PA-C [address] [place] [address] [place] [address] Physician AssistantHematology/Oncology03/22/23 Maryuri Rodriguez LSW Social Worker07/21/23
--- OUTSIDE RECORDS SUMMARY | 2025-05-14 14:56 | XMS_ITS | Clinical Summary ---
Author Organization [facility] Address [address] [place] [address] Care Team Providers Care Cloth Napping Supervisor Name Role Phone Leon Colin Raphael HARLEY Primary Care Provider [phone] Allergies No known active allergies Medications MedicationSigDispense QuantityRefillsLast FilledStart DateEnd DateStatus oxybutynin XL (Ditropan-XL) 15 MG 24 hr tablet Take 15 mg by mouth in the morning.11/11/2022ctive ondansetron ODT (Zofran-ODT) 8 MG disintegrating tablet DISSOLVE ONE TABLET ON THE TONGUE EVERY 8 HOURS NEEDED FOR SAGYDW2701/11/2023 Active omeprazole (PriLOSEC) [address] capsule Take 40 mg by mouth in the morning.11/11/2022ctive meloxicam (Mobic) 15 MG tablet Take 15 mg by mouth in the morning.Active aspirin 81 MG EC tablet Take 81 mg by mouth in the morning.Active Probiotic Product (Digestive Advantage) capsule 11/09/2023ctive loperamide (Imodium) 2 MG capsule 08/30/2023ctive ibuprofen 400 MG tablet 11/09/2023ctive ALPRAZolam (Xanax) 0.25 MG tablet TAKE 1 TABLET BY MOUTH TWICE DAILY NEEDED FOR 30 DAYS11/23/2023ctive Vortioxetine HBr (Trintellix) 5 MG tablet Take 5 mg by mouth DailyActive Marion-3 Fatty Acids (Fish Oil) 1200 MG capsule delayed-release Take 1,200 mg by mouth DailyActiveHospital, Clinic, or Other Facility Administered MedicationOrdered DoseRouteFrequencyStart DateEnd DateStatus denosumab (Prolia) injection 60 mg Indications:Osteopenia, unspecified location,Osteoarthritis, unspecified osteoarthritis type, unspecified site60 rxXPAvjq25/31/2023ctive denosumab (Prolia) injection 60 mg Indications:Calcium increased serum60 nhLXVhao35/31/2023ctive Active Problems ProblemNoted DateDiagnosed DatePostmenopausal state52019 novel coronavirus-infected pneumonia (NCIP)01/12/2024cute UTI01/12/2024rthritis 01/12/2024ilateral primary osteoarthritis of knee01/12/2024bdominal pain 01/12/2024omplete obstruction of small ynqgpfycy78/05/2024iverticulosis 01/12/20245935Mhrcuuxxhglec07/05/4803Mafqpnog88/05/2024Other acute postprocedural pain01/12/2024Ileostomy yfnbor5401/12/2024artial small bowel obstruction 11/06/2023Ileostomy bag dmtqtld5708/31/2023Ileostomy xhnvwzx6008/26/2023trial xzolthjtsnfv11/31/2024 Overview (01/12/2024): Last Assessment & Plan: Assessment: paroxysmal, one instance. chemo induced. No thinner. Has been on aspirin preventatively. RRR today, no murmur Per cardiology ,Dr. Canales: After receiving chemotherapy the patient admitted to the hospital for evaluation for chest pain CTA of the chest was negative. Her echocardiogram was normal referred for a Lexiscan myocardial fusion study which done at the [facility] and was able to retrieve the result and it was normal and I have reviewed that with the patient. Awaxasezviyiwu90/31/2024 Overview (01/12/2024): Last Assessment & Plan: Assessment: diet controlled Vjmlektfkga38/31/2024GERD (gastroesophageal reflux disease)08/09/2023 Overview (01/12/2024): Last Assessment & Plan: Assessment: Managed and stable with current medication. Denies difficulty swallowing or any bleeding. Mixed anxiety depressive rijvchmx53/31/2024 Overview (01/12/2024): Last Assessment & Plan: Assessment: stable with current medication regimen BMI 24.0-24.9, adult07/25/2023hest pain07/25/2023History of atrial fibrillation 07/20/2023Iron deficiency anemia, lprdrjwqrop77/28/2023 Overview (01/12/2024): Last Assessment & Plan: Assessment: Stable. Denies bleeding. States chemo induced. Hemoglobin (g/dL) Date Value 08/11/2023 12.5 07/13/2023 9.4 07/05/2023 9.9 Left carpal tunnel tsuzhtgb00/11/2023Stress rrpaoputdpez22/11/2023Rectal cancer 06/14/2023Senile vxhfufguexah63/17/2023Fibrocystic breast zrzzkou1701/23/2023Mixed oohcyhvyknbg58/17/2023Vitamin D zhbircaqov04/17/2023rimary osteoarthritis of right knee12/14/2022Essential dcujpkiecxdc08/17/2017 Overview (01/12/2024): Last Assessment & Plan: Assessment: stable and compliant with current medications Last 5 Encounter BP Readings: Date: BP: 08/11/2023 105/75 08/07/2023 104/62 07/27/2023 104/68 07/27/2023 145/68 07/21/2023 122/66 Personal history of malignant melanoma of skin04/28/2009Osteoarthritis of ankle and foot12/20/2005 Encounters DateTypeDepartmentCare PpgpLgbvnusekgd91/26/2025Clinisync Result Encounter [facility] External Department Unsolicited Cathleen Cooley PA 5Abstract [facility] Pratik DORSEY [address] [place] [address] Jairon Pisano DO 02/25/2025Orders Only [facility] Pratik DORSEY [address] [place] [address] Cathleen Cooley PA Postmenopausal state; Osteopenia after menopausefrom Last 3 Months Immunizations ImmunizationAdministration DatesNext DueInfluenza, Split (incl. purified surface antigen)07/13/2013Influenza, injectable, tlyxcwqqtgsx55/29/2019,04/18/2017 Influenza, seasonal, /01/2017Influenza, seasonal, injectable, preservative free04/09/2014Pneumococcal Polysaccharide KLFJ1019, 04/09/2014,07/25/2013Zoster, Rtrehnvmztq98/30/2022,02/26/2021Zoster, live 11/04/2013 Family History Medical HistoryRelationNameCommentsHeart diseaseFatherHypertensionFather HypertensionMotherLung cancerMotherRelationNameStatusCommentsFatherDeceased MotherDeceased Social History Tobacco UseTypesPacks/DayYears UsedDateSmoking Tobacco: NeverSmokeless Tobacco: Never Tobacco Cessation:Counseling Given: Not Answered Alcohol UseStandard Drinks/WeekCommentsYes0 (1 standard drink = 0.6 oz pure alcohol)2-4 times/month. Coffee: 2-3 cups per dayAUDIT-CAnswerDate RecordedQ1: How often do you have a drink containing alcohol?2-4 times a month06/17/2023Q2: How many drinks containing alcohol do you have on a typical day when you are drinking?1 or Q3: How often do you have six or more drinks on one occasion?Never06/17/2023CommentsNoSex and Gender InformationValueDate RecordedSex Assigned at XgynaXmwbxy72/31/2023 8:42 AM EDTLegal SexFemale 09/21/2022 7:08 PM EDTGender IdentityNot on fileSexual OrientationNot on file Last Filed Vital Signs Vital SignReadingTime TakenCommentsBlood Bmborddr926/70002/21/2024 1:21 PM EDT Pulse--Temperature--Respiratory Rate--Oxygen Saturation--Inhaled Oxygen Concentration--Ekzclg16.3 kg (148 lb 6.4 oz)02/21/2024 1:21 PM MTYHaehpc521.1 cm (5' 5 )01/12/2024 10:33 AM EDTBody Mass Index24.707 10:33 AM EDT Plan of Treatment Not on file Procedures Procedure NamePriorityDate/TimeAssociated DiagnosisCommentsCCF CALCIUMRoutine 03/04/2025 9:07 AM EDT TBH ULBQYGRKDLYzjuywb57/26/2025 9:07 AM EDT from Last 3 Months Results * [facility] CREATININE (03/04/2025 9:07 AM EDT)ComponentValueRef RangeTest Method Analysis TimePerformed AtPathologist SignatureCREATININE0.710.55 - 1.02 mg/dL TBHTBH EGFR-AF GUYANESE>60>=60 mL/min/1.73m 2TBHTBH EGFR-NON AF GUYANESE>60 >=60 mL/min/1.73m 2TBHSpecimen (Source)Anatomical Location / Laterality Collection Method / VolumeCollection TimeReceived Time03/04/2025 9:07 AM EDT 03/04/2025 9:12 AM EDT Narrative CLIN[facility]NC - 03/04/2025 9:28 AM EDT Authorizing ProviderResult TypeResult StatusAmy Lenora PACLINISYNCFinal Result Performing OrganizationAddressCity/State/ZIP CodePhone Number [facility]IN[facility] * [facility] CALCIUM (03/04/2025 9:07 AM EDT)ComponentValueRef RangeTest MethodAnalysis TimePerformed AtPathologist SignatureCALCIUM9.18.5 - 10.1 mg/dLTBHSpecimen (Source)Anatomical Location / LateralityCollection Method / VolumeCollection TimeReceived Time03/04/2025 9:07 AM EDT03/04/2025 9:12 AM EDT Narrative [facility] - 03/04/2025 9:28 AM EDT Authorizing ProviderResult TypeResult StatusAmy Lenora PACLINISYNCFinal Result Performing OrganizationAddressCity/State/ZIP CodePhone Number CLINISYNC TB from Last 3 Months Insurance Care Teams Team MemberRelationshipSpecialtyStart DateEnd Leon Colin DO [facility]12/13/22
--- OUTSIDE RECORDS SUMMARY | 2025-05-14 14:56 | XMS_ITS | Clinical Summary ---
Author Organization [facility] tem Address [id number] [place] [address] Care Team Providers Care Dental Surgeon Name Role Phone Leon Colin Raphael HARLEY Primary Care Provider [phone] Allergies No known active allergies Medications MedicationSigDispense QuantityRefillsLast FilledStart DateEnd DateStatus omeprazole (PriLOSEC) 40 mg capsule Take 1 capsule (40 mg total) by mouth in the morning.11/11/2022ctive oxybutynin XL (DITROPAN XL) 15 mg 24 hr tablet Take 1 tablet (15 mg total) by mouth in the morning.11/11/2022ctive amLODIPine-benazepril (LOTREL) 5-10 mg per capsule Take 1 capsule by mouth in the morning.11/11/2022ctive meloxicam (MOBIC) 15 mg tablet Take 1 tablet (15 mg total) by mouth in the morning.11/11/2022ctive calcium carbonate-vitamin D3 600 mg-10 mcg (400 unit) capsule Take 2 tablets by mouth in the morning.Active vortioxetine (TRINTELLIX) 5 mg tablet Take 2 tablets (10 mg total) by mouth in the morning.Active magnesium 250 mg tablet Take 2 tablets (500 mg total) by mouth in the morning.Active potassium citrate 99 mg capsule Take 1 tablet by mouth in the morning.Active Lactobacillus acidophilus (PROBIOTIC ORAL) Take 220 mg by mouth in the morning.Active Active Problems ProblemNoted DateDiagnosed DatePrimary osteoarthritis of right knee12/14/2022 Social History Tobacco UseTypesPacks/DayYears UsedDateSmoking Tobacco: NeverSmokeless Tobacco: Never Tobacco Cessation:Counseling Given: Not Answered Alcohol UseStandard Drinks/WeekCommentsYes0 (1 standard drink = 0.6 oz pure alcohol)socialChildcareAnswerDate CcfcyhobHhsbeviwtXqtrjry06/12/2019Employment AnswerDate ExxlnnetDrfdmhhnxyTtqdlap92/12/2019Purpose - LifeAnswerDate Recorded Purpose and direction in kiujWipewqw20/11/2021CommentsNoSex and Gender InformationValueDate RecordedSex Assigned at BirthNot on fileLegal SexFemale 02/12/2015 12:04 PM EDTGender IdentityNot on fileSexual OrientationNot on file Last Filed Vital Signs Vital SignReadingTime TakenCommentsBlood Kvcztvtt143/72012/15/2022 2:24 PM EDT Btszh494612/15/2022 2:24 PM JITDjmqragrquh37.8 ??C (98.3 ??F)12/15/2022 2:24 PM EDTRespiratory Ipqj112712/15/2022 2:24 PM EDTOxygen Yurqalziid74%12/15/2022 2:24 PM EDTInhaled Oxygen Concentration--Bnignz90.7 kg (149 lb 4.8 oz)12/15/2022 12:48 AM VYQTpdgge174.1 cm (5' 5 )12/14/2022 6:22 AM EDTBody Mass Index24.84 12/14/2022 6:22 AM EDT Plan of Treatment Health MaintenanceDue DateLast DoneCommentsDepression Kwbjjgzpy75/15/1966Tobacco Nftpynrtd92/15/1966DTaP,Tdap and Td Vaccines (1 - Tdap)1972Fall Risk Rdugngopj76/15/2019Adult BMI Rmiiuqpfd32/OVID-19 Vaccine (3 - 2024- season)503/, 09/03/2020Influenza Vwoapol7703/10/2025 05/07/2019, 04/18/2017, 04/09/2017, Additional history existsRSV ( or age 60+ yrs) (1 - 1-dose 75+ series)2028Zoster (Shingles) VaccineCompleted 08/08/2021, 02/26/2021 Goals GoalPatient Goal TypeAssociated ProblemsRecent ProgressPatient-Stated?Author Home Maggy Julien LSW Note: Evaluation of progress towards goal: Safe dc transition home with family support and [facility] [employer] ImplantedTypeAreaManufacturerDevice IdentifierShelf Expiration DateModel / Serial / LotCement Bn Bio 40gm Rpl [id number] - Sna - [id number] Implanted:Qty: 2 on 12/14/2022 by [facility]: KneeZimmer [id number] / NA / [id number] Artc 11mm Persona Mdl Cngr 6-7 Cd Kn Rt Vivacit-E - Sna - [id number] Implanted:Qty: 1 on 12/14/2022 by Zeb Valle DO at [facility] ImplantRight: KneeZimmer Xhylod9912/07/2024 [id number] / NA / [id number] Fem 6 Std Kn Rt Crcte Rtn Cmnt Persona Cocr - Sna - [id number] Implanted:Qty: 1 on 12/14/2022 by Zeb Valle, DO at [facility] ImplantRight: KneeZimmer [id number] / NA / [id number] Tib 5d D Kn Rt Cmnt Stm Persona Tiv Strl - Sna - [id number] Implanted:Qty: 1 on 12/14/2022 by [facility] KneeZimmer [id number] / NA / [id number]jgplYouhxs IdentifierShelf Expiration DateModel / Serial / LotScrew Gd 48mm Qd-Spr Hex Hd Mis Strl - Sna - [id number] Explanted:Qty: 2 on 12/14/2022 by [facility]: KneeZimmer [id number] / NA / [id number] 27mm Hx Hd Scr Srg - Sna - [id number] Explanted:Qty: 2 on 12/14/2022 by [facility]eb Val[facility] DO [facility]: KneeZimmer Jzhebo89/24/[id number] / NA / [id number] Bn 35mm 6.5mm St Hip Actb Trlg Strl Rpl [id number] - Sna - [id number] Explanted:Qty: 1 on 12/14/2022 [facility] KneeZimmer [id number] / NA / [id number] Bn 35mm 6.5mm St Hip Actb Trlg Strl Rpl [id number] - Sna - [id number] Explanted:Qty: 1 on 12/14/2022 by [facility]: KneeZimmer [id number] / NA / [id number] Insurance Care Teams Team MemberRelationshipSpecialtyStart DateEnd Date Leon Colin DO [address] [place] [id number] [facility]CP [facility]
--- OUTSIDE RECORDS SUMMARY | 2025-05-14 14:56 | XMS_ITS | Encounter Summary ---
Author Organization [facility] Address [address] [place] [address] Care Team Providers Care Bundle Wrapper Name Role Phone Charles Bazzi Primary Care Provider [phone] Encounter Details DateTypeDepartmentCare Team (Latest Contact Info)Lirkqvmuuqr32/15/2024linisync Result Encounter [facility] External Department Unsolicited Jairon Pisano DO [address] [place] [address] Social History Tobacco UseTypesPacks/DayYears UsedDateSmoking Tobacco: NeverSmokeless Tobacco: NeverAlcohol UseStandard Drinks/WeekCommentsYes0 (1 standard drink = 0.6 oz pure alcohol)2-4 times/month. Coffee: 2-3 cups per dayAUDIT-CAnswerDate RecordedQ1: How often do you have a drink containing alcohol?2-4 times a month06/17/2023Q2: How many drinks containing alcohol do you have on a typical day when you are drinking?1 or Q3: How often do you have six or more drinks on one occasion?Never3CommentsNoSex and Gender InformationValueDate RecordedSex Assigned at AszgrBiwvoe87/31/2023 8:42 AM EDTLegal SexFemale 09/21/2022 7:08 PM EDTGender IdentityNot on fileSexual OrientationNot on file documented as of this encounter Plan of Treatment Not on file documented as of this encounter Procedures Procedure NamePriorityDate/TimeAssociated DiagnosisCommentsMM TOMOSYNTHESIS SCREENING BI10/ 1:53 PM EDT documented in this encounter Results * MM TOMOSYNTHESIS SCREENING BI (04/23/2024 1:53 PM EDT)Anatomical Region LateralityModalityOtherSpecimen (Source)Anatomical Location / Laterality Collection Method / VolumeCollection TimeReceived Time04/23/2024 1:53 PM EDT Narrative 04/23/2024 1:54 PM EDT [facility] ?[address] ? [place] [address] ? Mammography Report ? Signed ? Patient: CRISTINA GILL C ?MR#: [id number] ?? : 1955 ?Acct:[id number] ?? Age/Sex: 68 / F ?ADM Date: 04/23/24 ?? Loc: MAMMO ? Attending Dr: Jairon Pisano D.O. ? Ordering Physician: Jairon Pisano D.O. ?Results: ? Date of Service: 04/23/24 ?Follow Up: ? Procedure(s): MM tomosynthesis screening BI ?? Accession Number(s): [id number] ? cc: Jairon Pisano D.O.; CHARLES BAZZI ? Patient Name: ? CRISTINA GILL ? MR#: [id number] ? : 1955 ? Exam Date: 04/23/2024 ?? Ordering Doctor: DR Jairon Pisano . ? RADIOLOGY REPORT ? PROCEDURE: ? MM TOMOSYNTHESIS SCREENING BI ? COMPARISON: ? [facility] MAMM SCREEN JAYA W CAD, 11/25/2016. ??MG MAMM SCREEN JAYA W ?? CAD, 05/20/2022. ? INDICATIONS: ? Screening for malignant neoplasm ? Calculator Name ? NCI Breast Cancer Risk Assessment Tool ?? 5 Year Breast Cancer Risk ? 1.50% ?? Lifetime Breast Cancer Risk ? 4.50% ?? Personal Breast Cancer ?No ?? Personal Ovarian Cancer ? No ?? Treatments ? None ?? Family Cancers ? None ? LOCATION: ? [facility] ? BREAST COMPOSITION: ? There are scattered areas of fibroglandular density. ? FINDINGS: ? DIAGNOSTIC CATEGORY 2--BENIGN FINDING. NO CHANGE FROM COMPARISON. ? Scattered benign-appearing calcifications are present. ??Scattered ?? benign-appearing lymph nodes are present. ? RIGHT BREAST: ??No significant suspicious finding. ? LEFT BREAST: ??No significant suspicious finding. ??Focal asymmetry upper outer ?? quadrant ? RECOMMENDATIONS: ? ROUTINE MAMMOGRAM AND CLINICAL EVALUATION IN 12 MONTHS. ? PLEASE NOTE: ??A NORMAL MAMMOGRAM DOES NOT EXCLUDE THE POSSIBILITY OF BREAST ?? CANCER. ??A CLINICALLY SUSPICIOUS PALPABLE LUMP SHOULD BE BIOPSIED. ? Dictated by: Kennedy Padilla MD on 04/23/2024 at 13:50 ? Approved by: Kennedy Padilla MD on 04/23/2024 at 13:52 ? Dictated By: ?Kennedy Padilla M.D. ? Signed By: ?04/23/24 1354 ? DD/ 1353 ? TD/TT: ? Pelletising Extruder Operator: Procedure Note Radiology, Radiologist, MD - 04/23/2024 [place] [address] Mammography Report Signed Patient: CRISTINA GILL CMR#: [id number] : 4Acct:[id number] Age/Sex: 68 / FADM Date: 04/23/24 Loc: MAMMO Attending Dr: Jairon Pisano D.O. Ordering Physician: Jairon Pisano D.O.Results: Date of Service: 04/23/24Follow Up: Procedure(s): MM tomosynthesis screening BI Accession Number(s): [id number] cc: Jairon Pisano D.O.; CHARLES BAZZI Patient Name: CRISTINA GILL MR#: [id number] : 1955 Exam Date: 04/23/2024 Ordering Doctor: [...] Treatments None Family Cancers None LOCATION: [facility] BREAST COMPOSITION: There are scattered areas [...] M.D. Signed By:04/23/24 1354 DD/ 1353 TD/TT: Pelletising Extruder Operator: Authorizing ProviderResult TypeResult StatusCorey Aliya DOCLINISYNC IMAGINGFinal Result documented in this encounter Visit Diagnoses Not on filedocumented in this encounter Care Teams Team MemberRelationshipSpecialtyStart DateEnd Date Charles Bazzi DO PCP - General12/13/22documented as of this encounter
--- OUTSIDE RECORDS SUMMARY | 2025-05-14 14:56 | XMS_ITS | Clinical Summary ---
Author Organization [facility] Address [address] [place] [address] Phone Care Team Providers Care Skiver Counter Name Role Phone Leon Colin Primary Care Provider [phone] Allergies No known active allergies Medications MedicationSigDispense QuantityRefillsLast FilledStart DateEnd DateStatus amLODIPine-benazepriL (Lotrel) 5-10 mg capsule Take 1 capsule by mouth once daily.05/11/2023ctive meloxicam (Mobic) 15 mg tablet Take 1 tablet (15 mg) by mouth once daily.05/10/2023ctive omeprazole (PriLOSEC) [address] capsule Take 1 capsule (40 mg) by mouth once daily.05/11/2023ctive oxybutynin XL (Ditropan-XL) 15 mg 24 hr tablet Take 1 tablet (15 mg) by mouth once daily.05/11/2023ctive aspirin 81 mg EC tablet Take 1 tablet (81 mg) by mouth once daily.Active calcium carbonate (CALCIUM 500 ORAL) Take 1 tablet by mouth once daily.Active omega 9-wdg-ulb-fish oil (Fish OiL) 1,000 mg (120 mg-180 mg) capsule Take 1 capsule (1,000 mg) by mouth once daily.Active magnesium, as gluconate, (Mag-G) 27 mg magnesium (500 mg) tablet Take 1 tablet (27 mg) by mouth once daily.Active potassium citrate 99 mg capsule Take 1 capsule by mouth once daily.Active vortioxetine (Trintellix) 10 mg tablet tablet Take 1 tablet (10 mg) by mouth once daily.Active Active Problems ProblemNoted DateDiagnosed DateOther chest pain07/25/2023olorectal cancer 07/25/2023MI 24.0-24.9, adult07/25/2023History of atrial eclrqxyqqrgg16/11/2024 Essential ekljzfyxpwhx39/11/2024 Resolved Problems ProblemNoted DateDiagnosed DateResolved DateAbnormal stress test07/20/2023 07/25/2023 Immunizations ImmunizationAdministration DatesNext DueInfluenza, injectable, quadrivalent 05/07/2019,04/18/2017Pneumococcal polysaccharide vaccine, 23-valent, age 2 years and older (PNEUMOVAX 23)04/09/2014Zoster vaccine, recombinant, adult (SHINGRIX) 08/08/2021,02/26/2021 Family History Medical HistoryRelationNameCommentsCABGFatherCOPDFatherLung cancerMotherRelation NameStatusCommentsFatherMother Social History Tobacco UseTypesPacks/DayYears UsedDateSmoking Tobacco: NeverSmokeless Tobacco: Never Tobacco Cessation:Counseling Given: Not Answered Alcohol UseStandard Drinks/WeekCommentsYes0 (1 standard drink = 0.6 oz pure alcohol)occasionalCommentsUnknownSex and Gender InformationValueDate RecordedSex Assigned at BirthNot on fileLegal BpyPejrxy32/25/2022 4:22 PM EST Gender IdentityNot on fileSexual OrientationNot on file Last Filed Vital Signs Vital SignReadingTime TakenCommentsBlood Yjrslwuk133/8807/25/2023 12:42 PM EST Mpimq125107/25/2023 12:42 PM ESTTemperature--Respiratory Rate--Oxygen Saturation-- Inhaled Oxygen Concentration--Uxbupz72.2 kg (146 lb)07/25/2023 12:42 PM EST Yxgrag713.1 cm (5' 5 )07/25/2023 12:42 PM ESTBody Mass Index24. 12:42 PM EST Plan of Treatment Health MaintenanceDue DateLast DoneCommentsCT Brwymooivkco89/15/1954olonoscopy 1955FIT-DNA (Cologuard)1955FIT1955Lipid Panel1955 Medicare Annual Wellness Visit (AWV)1955MMR Vaccines (1 of 1 - Standard series)1954Hepatitis C Yjsmbsfzb58/15/1972DTaP/Tdap/Td Vaccines (1 - Tdap) 08/24/19757290Jagbgeaey69/15/1994Pneumococcal Vaccine (2 of 2 - PCV)04/09/2016 04/09/2015, 04/09/2014, 07/25/2013one Density Scan5011/03/2022Influenza Vaccine (#1), 04/18/2017, 04/09/2017, Additional history existsCOVID-19 Vaccine (3 - season)/, 09/03/2020 Colorectal Cancer Oyyqejvxz82/30/2102Loyrqwedvwbpl69RSV High Risk: (Elderly (60+) or Population) (1 - 1-dose 75+ series)2028 Zoster EpsigcdcVdbsfkplr58/30/2022, 02/26/2021, 11/04/2013HIB VaccinesAged OutNo longer eligible based on patient's age to complete this topicHPV VaccinesAged OutNo longer eligible based on patient's age to complete this topicHepatitis A VaccinesAged OutNo longer eligible based on patient's age to complete this topic Hepatitis B VaccinesAged OutNo longer eligible based on patient's age to complete this topicIPV VaccinesAged OutNo longer eligible based on patient's age to complete this topicMeningococcal VaccineAged OutNo longer eligible based on patient's age to complete this topicRotavirus VaccinesAged OutNo longer eligible based on patient's age to complete this topic Insurance Care Teams Team MemberRelationshipSpecialtyStart DateEnd Date Leon Colin DO [facility] - General10/05/22
--- OUTSIDE RECORDS SUMMARY | 2025-05-14 14:56 | XMS_ITS ---
Author Organization [facility] Address [address] [place] [id number] Care Team Providers Care Manager Spring Name Role Phone Leon Coliner Primary Care Provider [phone] Tapan Corona MD Unavailable [phone] Naheed Elias PA-C Unavailable [phone] Maryuri Rodriguez Unavailable Unavailable Active Problems ProblemNoted DateDiagnosed DatePartial small bowel ufqibnaedwa22/29/2024 Ileostomy bag zllxnwi4608/31/2023Ileostomy fqaywvo0708/26/2023ectal adenocarcinoma 08/25/2023 Cancer Staging: Pathologic stage from 08/31/2023: ypT0, pN0 - Signed by Zeb Marshall MD on 08/31/2023 Atrial Assessment & Plan (08/11/2023 12:44 PM EST): Assessment: paroxysmal, one instance. chemo induced. No thinner. Has been on aspirin preventatively. RRR today, no murmur Per cardiology ,Dr. Canales: After receiving chemotherapy the patient admitted to the hospital for evaluation for chest pain CTA of the chest was negative. Her echocardiogram was normal referred for a Lexiscan myocardial fusion study which done at the [facility] and was able to retrieve the result and it was normal and I have reviewed that with the patient. GERD (gastroesophageal reflux disease) Assessment & Plan (08/11/2023 12:41 PM EST): Assessment: Managed and stable with current medication. Denies difficulty swallowing or any bleeding. Jywjjzkcysf14Hyperlipidemia Assessment & Plan (08/11/2023 12:41 PM EST): Assessment: diet controlled Mixed anxiety depressive hpramdsg00 Assessment & Plan (08/11/2023 12:42 PM EST): Assessment: stable with current medication regimen Iron deficiency anemia, rezbmynrrxz11/28/2023 Assessment & Plan (08/14/2023 11:46 AM EST): Assessment: Stable. Denies bleeding. States chemo induced. Hemoglobin (g/dL) Date Value 08/11/2023 12.5 07/13/2023 9.4 07/05/2023 9.9 Rectal lbdfgu8106/14/2023 Assessment & Plan (08/11/2023 12:42 PM EST): Assessment: last chemo 06/2023, presents for surgical intervention Essential ejfujmqsnnxi99 Assessment & Plan (08/11/2023 12:40 PM EST): Assessment: stable and compliant with current medications Last 5 Encounter BP Readings: Date: BP: 08/11/2023 105/75 08/07/2023 104/62 07/27/2023 104/68 07/27/2023 145/68 07/21/2023 122/66 Personal history of malignant melanoma of skin04/28/2009Osteoarthrosis, unspecified whether generalized or localized, ankle and foot12/20/2005 Current Treatment and Therapy Plans No current plan information found. Past Treatment and Therapy Plans Plan NameStart DateDiscontinue DateTreatment MedicationsDiscontinue ReasonPlan ProviderCyclesAMB MODIFIED FOLFOX 6 - OXALIPLATIN 85 5FU 400 IVP D1 5FU 2400 CADD OVER 46 HRS - Q14D//10/2023* fluorouracil iv infusion CASSETTE (ADRUCIL)with rate * leucovorin iv piggyback * oxaliplatin iv piggyback in D5W 500 mL (ELOXATIN) * palonosetron (ALOXI) Not ToleratedTapan Corona MD1 of 12 cycles started Resolved Problems ProblemNoted DateDiagnosed DateResolved DateSmall bowel ydciafracyl14/22/2024 09/04/2023Encounter for ostomy care ugppncqpx72/
--- OUTSIDE RECORDS SUMMARY | 2025-05-14 14:56 | XMS_ITS | Encounter Summary ---
Author Organization [facility] Address [address] [place] [id number] Care Team Providers Care Desktop Support Technician Name Role Phone Leon Colin Primary Care Provider [phone] Tapan Corona MD Unavailable [phone] Naheed Elias PA-C Unavailable [phone] Maryuri Rodriguez Unavailable Unavailable Source Comments In the event this information is protected by the Federal Confidentiality of Alcohol and Drug AbusePatient Records regulations: The Federal rules restrict any use of the information to criminally investigate or prosecute any alcohol or drug abuse patient.[facility] Encounter Details DateTypeDepartmentCare Team (Latest Contact Info)Xvekrszifnr45/04/2025Results Follow-Up Hematology [address] [place] [address] Tapan Corona MD [address] [place] [address] Social History Tobacco UseTypesPacks/DayYears UsedDateSmoking Tobacco: NeverPassive Smoke Exposure: PastSmokeless Tobacco: NeverAlcohol UseStandard Drinks/WeekCommentsYes 0 (1 standard drink = 0.6 oz pure alcohol)2 times a month if [facility] Utilities AnswerDate RecordedIn the past 12 months has the electric, gas, oil, or water company threatened to shut off services in your home?No11/09/2023Overall Financial Resource Strain (CARDIA)AnswerDate RecordedHow hard is it for you to pay for the very basics like food, housing, medical care, and heating?Patient rkuwgeux28/22/2024HQ-2AnswerDate RecordedPHQ-2 wmhmk872Hunger Vital SignAnswerDate RecordedWithin the past 12 months, you worried that your food would run out before you got the money to buymore.Never true11/09/2023Within the past 12 months, the food you bought just didn't last and you didn't have money to get more.Never true11/09/2023RAPARE - TransportationAnswerDate RecordedIn the past 12 months, has lack of transportation kept you from medical appointments or from getting medications?No11/09/2023In the past 12 months, has lack of transportation kept you from meetings, work, or from getting things needed for daily living?No11/09/2023Housing Stability Vital SignAnswerDate RecordedIn the last 12 months, was there a time when you were not able to pay the mortgage or rent on time?No11/09/2023Number of Places Lived in the Last Year Not on file11/09/2023In the last 12 months, was there a time when you did not have a steady place to sleep or slept in ashelter (including now)?No11/09/2023 CommentsNoSex and Gender InformationValueDate RecordedSex Assigned at BirthNot on fileLegal UpqQifywm17/02/2012 9:50 AM ESTGender IdentityNot on file Sexual OrientationNot on filedocumented as of this encounter Functional Status * Are you deaf or do you have serious difficulty hearing?AnswerDate of XzfmxuwoomDmuzwgEu13/26/2024 3:54 PM Rebecca Clayton RN * Are you blind or do you have serious difficulty seeing, even when wearing glasses?AnswerDate of SqhizkmylkIesmdiOe08/26/2024 3:54 PM Rebecca Clayton RN * Do you have serious difficulty walking or climbing stairs?AnswerDate of GzqqfutqbgZdsmweMc34/26/2024 3:54 PM Rebecca Clayton RN * Do you have difficulty dressing or bathing?AnswerDate of AssessmentAuthorNo 09/04/2023 3:54 PM Rebecca Clayton RN * Because of a physical, mental, or emotional condition, do you have difficulty doing errands alone such as visiting a doctor's office or shopping?AnswerDate of WwitkifjutOmjkdaLw66/26/2024 3:54 PM Rebecca Clayton RN documented as of this encounter Mental Status * Because of a physical, mental, or emotional condition, do you have serious difficulty concentrating, remembering, or making decisions?AnswerEntry Date BvmlfiUh94/26/2024 3:54 PM Rebecca Clayton RN documented in this encounter Plan of Treatment DateTypeDepartmentCare Team (Latest Contact Info)Hcasblnssur02/12/2026 12:00 PM ESTVisit (SP) Office Hematology [address] [place] [address] Tapan Corona MD [address] [place] [address] F/U with Dr. Corona 08/23/25, labs 1 week priordocumented as of this encounter Visit Diagnoses Not on filedocumented in this encounter Care Teams Team MemberRelationshipSpecialtyStart DateEnd Date Leon Colin [address] [place] [phone] PCP - GeneralFamily Medicine03/16/23 Tapan Corona MD [address] [place] [address] PhysicianHematology/Oncology03/22/23 Naheed Elias, PADesireeC [address] [place] [address] [place] [address] Physician AssistantHematology/Oncology03/22/23 Maryuri Rodriguez LSW Social Worker07/21/23documented as of this encounter
--- OUTSIDE RECORDS SUMMARY | 2025-05-14 15:05 | XMS_ITS | CCD ---
Author Organization [facility] Care Team Providers Care Service Worker Helper Name Role Phone CHARLES BAZZI Unavailable Unavailable CHARLES BAZZI Unavailable Unavailable Caroline Rangel II Unavailable DO Charles Bazzi Primary Care Provider [phone] MD Caroline Rangel II Attending Provider [phone] Charles Bazzi Unavailable DO Charles Bazzi Primary Care Provider DO Charles Bazzi Attending Provider Charles Bazzi Unavailable Unavailable Unavailable CAROLINE RANGEL Attending Unavailable CAROLINE RANGEL Admitting Unavailable ALIYA ., DR JHAVERI Consulting Unavailable ALIYA ., DR JHAVERI Admitting Unavailable ALIYA ., DR JHAVERI Attending Unavailable ALIYA ., DR JHAVERI Consulting Unavailable ALIYA ., DR JHAVERI Admitting Unavailable ALIYA ., DR JHAVERI Attending Unavailable Ani Can Consulting Unavailable Tomi Greene Unavailable Unavailable Primary Care Provider UnavailCharles Reid Primary Care Provider Osmin KIRKPATRICK, Colleen Mathis Unavailable [phone] Cj VELASQUEZ, Tapan Unavailable Naheed Elias PA-C Unavailable [phone] DO Charles Bazzi Primary Care Provider MD Tomi Greene Attending Provider AUSTIN Rangel Emergency Provider DO Jordan Hare Admit Provider DO Jordan Hare Attending Provider KAYA Harmon Other Provider Unavailable DO Akila Stokes Other Provider MD Troy Tabares Other Provider MD David Espinosa Other Provider MD Marcos Rios Other Provider MD Blas Villagomez Other Provider ROXY Wyatt Other Provider MD Amanda Mora Other Provider MD Jomar Campso Naerlinda Other Provider MD Kandace Shah Other Provider Ernesto [facility] Arlette Church Other Provider MD Wendy Ocasio Other Provider MD Agustin Negron Attending Provider [phone] MD Tapan Corona Other Provider Dr. Charles Bazzi Primary Care Unavailabl e Dixie, Dr. Charles Joseph Primary Care Unavailabl e Dr. Marcos Rios Attending Unavaila marito Rios, Dr. Anna Referring Everardo Bazzi, Dr. Charles [facility] Charles Ho Primary Care Provider [phone] AUSTIN Rangel Emergency Provider [phone] DO Jordan Hare Admit Provider [phone] KAYA Harmon Other Provider Unavailable DO Akila Stokes Other Provider MD Troy Tabares Other Provider MD David Espinosa Other Provider MD Marcos Rios Other Provider MD Blas Villagomez Other Provider ROXY Wyatt Other Provider MD Amanda Mora Other Provider MD Jomar Campos Other Provider MD Kandace Shah Other Provider Ernesto, [facility] Arlette Church Other Provider MD Wendy Ocasio Other Provider MD Agustin Negron Attending Provider MD Tapan Corona Other Provider MD Cristhian Vargas Attending Provider [phone] Charles Bazzi DO Primary Care Provider MARCOS RIOS Attending Unavailable CHARLES BAZZI Primary Care Unavailable Michael BALWRadhai Unavailable Unavailable DO Charles Bazzi Primary Care Provider DO Patrice Springer Emergency Provider Unavai MD Miguel Ángel Dobson Admit Provider MD Miguel Ángel Delgadillo Attending Provider MD Tim Garduno Attending Provider MD Cristhian Vargas Other Provider DO Charles Bazzi Attending Provider MD Mary Al R Emergency Provider [phone] MD Patrice oHoks Admit Provider MD Patrice Hooks Attending Provider DO Jm Trujillo Attending Provider DO Ion Eckert Other Provider Charles Bazzi Primary Care Provider LAISHA SINGER Admitting Unavailable LAISHA SINGER Attending Unavailable CHARLES BAZZI Primary Care Unavailable JIMENA HUDSON Referring Unavaila ble KUNS, CHARLES JOSEPH Primary Care Unavailable BAN, LAISHA Admitting Unavailable BAN, LAISHA Attending Unavailable KUNS, CHARLES JOSEPH Primary Care Unavailable PADMINI LANCE Admitting Unavailable BAN, LAISHA Attending Unavailable V, CRISTHIAN Attending Unavailable APLING, SUDHA Denton Attending Unavailable LIANA, OSCAR Contreras Attending Unavailable LIANA, OSCAR A Referring Unavailable LIANA, OSCAR Contreras Attending Unavailable LIANA, OSCAR Contreras Attending Unavailable LIANA, OSCAR Contreras Attending Unavailable LIANA, OSCAR A Referring Unavailable V, CRISTHIAN Attending Unavailable KARAMLOU, TAPAN Referring Unavailable V, CRISTHIAN Attending Unavailable LIANA, OSCAR A Attending Unavailable LENORA, CATHLEEN Attending Unavailable V, CRISTHIAN Attending Unavailable KARAMLOU, TAPAN Referring Unavailable Osmin KIRKPATRICK, Colleen Mathis Unavailable Unavailable Primary Care Provider Unavailabl e Charles Bazzi DO Primary Care Provider Chris Henning APRN Emergency Provider [phone] Jorge A Haji DO Attending Provider Charles Bazzi DO Primary Care Provider Jorge A Haji DO Other Provider Amanda Chester MD Attending Provider Charles Bazzi DO Attending Provider [phone] Charles Bazzi DO Primary Care Provider Chris Henning APRN Emergency Provider Charles Bazzi DO Primary Care Provider [phone] Charles Bazzi DO Primary Care Provider [phone] Amanda Chester MD Attending Provider [phone] Charles Bazzi DO Primary Care Provider Amanda Chester MD Attending Provider Ramona VELASQUEZ, Tomi Attending Provider Charles Bazzi Primary Care Unavailable Amanda Chester Attending Unavailable Amanda Chester Admitting Unavailable Kuns, Charles Attending Unavailable Kuns, Charles Admitting Unavailable Kuns, Charles Primary Care Unavailable Calvey, Amanda R Admitting Unavailable Calvey, Amanda R Attending Unavailable Kuns, Charles Primary Care Unavailable Calvey, Amanda R Admitting Unavailable Calvey, Amanda R Attending Unavailable Kuns, Charles Primary Care Unavailable Kuns, Charles Primary Care Unavailable Asaad, Imad Admitting Unavailable Asaad, Imad Attending Unavailable Calvey, Amanda R Admitting Unavailable Kuns, Charles Primary Care Unavailable Calvey, Amanda R Attending Unavailable Kuns, Charles Primary Care Unavailable Milady, Chris Admitting Unavailable Milady, Chris Attending Unavailable Raissa, Jorge A A Consulting Unavailable Kuns, Charles Primary Care Unavailable Milady, Chris Admitting Unavailable Milady, Chris Attending Unavailable Kuns, Charles Primary Care Unavailable Jorge A Haji A Admitting Unavailable Jorge A Haji Attending Unavailable Kuns, Charles Primary Care Unavailable Calvey, Aamnda R Attending Unavailable Calvey, Amanda R Admitting Unavailable Kuns DO, Charles R Primary Care Provider Gidelores VELASQUEZ, Andrius Denisaytjarad Attending Unavailable Giedraitis , Andrius Vytautas Attending Unavailable Giedraitis , Andrius Vytautas Attending Unavailable Giedraitis , Andrius Vytautas Attending Unavailable Giedraitis , Andrius Vytautas Attending Unavailable Giedraitis , Andrius Vytautas Attending Unavailable BAN, LAISHA Referring Unavailable ZOHAIB NICOLE Attending Unavailable KUNS, CHARLES OPAL Primary Care Unavailable KARAMLOU, TAPAN Referring Unavailable KUNS, CHARLES OPAL Primary Care Unavailable KUNS, CHARLES OPAL Primary Care Unavailable BAN, LAISHA Referring Unavailable ALE MARIE Attending Unavailable KUNS, CHARLES OPAL Primary Care Unavailable BAN, LAISHA Attending Unavailable BAN, LAISHA Referring Unavailable KUNS, CHARLES OPAL Primary Care Unavailable Del HUDSON Attending Unavailable KUNS, CHARLES OPAL Primary Care Unavailable KARAMLOU, TAPAN Attending Unavailable KUNS, CHARLES OPAL Primary Care Unavailable CARLYLOU, TAPAN Attending Unavailable KUNS, CHARELS OPAL Primary Care Unavailable BAN, LAISHA Attending Unavailable BAN, LAISHA Referring Unavailable KUNS, CHARLES OPAL Primary Care Unavailable BAN, LAISHA Referring Unavailable WIEBUSCH, CHAPINCITO A Attending Unavailable KUNS, [facility] Primary Care Unavailable BAN, LAISHA Referring Unavailable WIEBUSCH, CHAPINCITO A Attending Unavailable KUNS, [facility] Primary Care Unavailable BAN, LAISHA Referring Unavailable ALE MARIE Attending Unavailable KUNS, [facility] Primary Care Unavailable KARAMLOU, TAPAN Referring Un[facility] Unavailable KARAMLOU, TAPAN Referring Unavailable [facility] Primary Care Unavailable BAN, LAISHA Referring Unavailable KARAMLOU, TAPAN Attending Unavailable [facility] Primary Care Unavailable KARAMLOU, TAPAN Referring Unavailable Medications Current Medications MedicationDrug Class(es)DatesSig (Normalized)Sig (Original)ALPRAZolam 0.25 mg oral tablet (20 sources)BenzodiazepineStart: 11-23-2023 End: 62-42-4040utng 1 tablet by mouth twice daily as neededALPRAZolam (Xanax) 0.25 MG tablet TAKE 1 TABLET BY MOUTH TWICE DAILY NEEDED FOR 30 DAYS 11/23/2023 ActiveStart: 08-19-2022 End: 48-97-0909fckz 1 tablet by mouth every twenty-four hours as needed ALPRAZolam (Xanax) 0.25 mg tablet Take 1 tablet (0.25 mg) by mouth once daily as needed. 0 08/19/2022 07/25/2023 Discontinued (Therapy completed)Start: 04-74-9130jfob 1 tablet by mouth twice daily as neededXanax 0.25 MG 1 tablet Orally Twice a day prn November, ActiveAspir-81 81 MG (20 sources)Start: 37-91-9512wsoi 1 tablet by mouth once dailyAspir-81 81 MG 1 tablet Orally Once a day Feb, Activeaspirin 81 mg delayed release oral tablet (20 sources)Platelet Aggregation Inhibitor, Nonsteroidal Anti-inflammatory Drug Start: 38-56-0656bses 1 tablet by mouth once dailyAspirin 81 mg tablet,delayed release (DR/EC) Active 81 MG PO Daily November 02, 2018 12:00amComment on above: Take 81 mg by mouth once daily.Bacillus coagulan-calcium carb (DIGESTIVE ADVANTAGE PROBIOTIC) 2 billion cell- 140 mg cap (3 sources)Start: 11-10-2023 End: 43-00-8908kjmq 1 capsule by mouth once dailyBacillus coagulan-calcium carb (DIGESTIVE ADVANTAGE PROBIOTIC) 2 billion cell- 140 mg cap Take 1 capsule by mouth once daily. Patient should start on November 10, 2023. 30 capsule 0 11/10/2023 12/10/2023 Activebifidobacterium animalis [id number] unt / lactobacillus acidophilus [id number] unt oral capsule (4 sources)Start: 07-89-8547Dhrptcsmd Product (Digestive Advantage) capsule 11/09/2023 ActiveProbiotic CAPS USE DIRECTED. Quantity: 0 Refills: 0 Ordered: 26-Oct-2022 DO ActiveCalcium Carbonate (2 sources)take 1 tablet by mouth once dailycalcium carbonate (CALCIUM 500 ORAL) Take 1 tablet by mouth once daily. 0 ActiveCalcium 500 MG TABS TAKE 1 TABLET DAILY. Quantity: 0 Refills: 0 Ordered: 26-Oct-2022 DO Active1 ml denosumab 60 mg/ml prefilled syringe (20 sources)RANK Ligand InhibitorStart: 28-24-8122Bguwvatis (Prolia) 60 mg/mL Syringe Active 60 MG SUBCUT EVERY 6 MONTHS June 26, 2023 1:00amStart: 03-06-2023 End: 69-20-9258Gcjlwqbvs (Prolia) 60 mg/mL Syringe Discontinued 60 MG SUBCUT EVERY 6 MONTHS March 06, 2023 12:00am April 05, 2023 3:37pmStart: 87-81-6555vsverreyc (Prolia) injection 60 mgdiclofenac sodium 0.01 mg/mg topical gel (20 sources)Nonsteroidal Anti-inflammatory DrugStart: 23-30-7987Lvpnntveau Sodium 1 % 1-2 grams to affected area Externally Four times a day for 30 days May, ActiveStart: 70-56-5493Xnhdnbcm 1 % apply 1-2 grams to affected area Externally up to 4x's daily for 30 days Feb, ActiveStart: 02-11-2022 Voltaren 1 % apply 1-2 grams to affected area Externally up to 4x's daily for 30 days Feb, Active0.4 ml enoxaparin sodium 100 mg/ml prefilled syringe (6 sources)Low Molecular Weight HeparinStart: 08-30-2023 End: 15-45-2917veetby 40 mg by subcutaneous injection every twenty-four hours enoxaparin (LOVENOX) 40 mg/0.4 mL Inject 0.4 mL subcutaneously every 24 hours for 21 days. 8.4 mL 09/20/2023 ActiveComment on above:Inject 0.4 mL subcutaneously every 24 hours for 21 days.enteric contrast (will be provided with radiology test) (5 sources)Start: 09-03-2024 End: 69-83-1699okwyals contrast (will be provided with radiology test) Indications: History of rectal cancer , Rectal cancer (HCC) For CT CHESTABD/PEL W IVCON Routine order Administer, As Directed One Time Only, via Oral, Rectal, both Oral and Rectal, Enteric Tube, Stoma or Indwelling Catheter, Enteric Contrast as designated per enteric contrast guidelines 1 Each 09/03/2024 09/04/2024 ActiveStart: 04-28-2023 End: 82-50-7482tcgfugh contrast (will be provided with radiology test) MRI RECTUM WO/W. Administer, As Directed One Time Only, via Oral, Rectal, both Oral and Rectal, Enteric Tube, Stoma or Indwelling Catheter, Enteric Contrast as designated per enteric contrast guidelines 1 Each 0 04/28/2023 04/29/2023 Active Start: 03-07-2023 End: 97-55-8298dmfbpjs contrast (will be provided with radiology test) MRI RECTUM WO/W. Administer, As Directed One Time Only, via Oral, Rectal, both Oral and Rectal, Enteric Tube, Stoma or Indwelling Catheter, Enteric Contrast as designated per enteric contrast guidelines 1 Each 0 03/07/2023 03/08/2023 ExpiredStart: 03-07-2023 End: 21-19-3200xkdwglw contrast (will be provided with radiology test) MRI RECTUM WO/W. Administer, As Directed One Time Only, via Oral, Rectal, both Oral and Rectal, Enteric Tube, Stoma or Indwelling Catheter, Enteric Contrast as designated per enteric contrast guidelines 1 Each 0 03/07/2023 03/08/2023 Active Comment on above:MRI RECTUM WO/W. Administer, As Directed One Time Only, via Oral, Rectal, both Oral and Rectal, Enteric Tube, Stoma or Indwelling Catheter, Enteric Contrast as designated per enteric contrast guidelinesescitalopram 10 mg oral tablet (20 sources)Serotonin Reuptake InhibitorStart: 20-55-7369MXACEZS 10 mg tablet 06/13/2024 Activeibuprofen 400 mg oral tablet (11 sources)Nonsteroidal Anti-inflammatory DrugStart: 11-09-2023 End: 27-83-2730bssnmgdkf 400 MG tablet 11/09/2023 ActiveINV SEMAGLUTIDE 0.25 MG/0.5 ML INJECTION (IRB 24-915) (3 sources)INV SEMAGLUTIDE 0.25 MG/0.5 ML INJECTION (IRB 24-915) Inject 0.25 mg subcutaneously one time a week. For Investigational Drug Use Only. PI: Ruthann Cisneros MD. Activeiv contrast (will be provided with radiology test) (5 sources)Start: 09-03-2024 End: 85-56-9970xg contrast (will be provided with radiology test) Indications: History of rectal cancer , Rectal cancer (HCC) CT Chest ABD/PEL-Inject, intravenously, once for 1 dose.No IV access, insert saline lockprior to the beginning of sedation, infusion, injection of imaging exam. Discontinue saline lock post exam. If Pt. has a central line or IVAD, may access for administration according to line specificnursing protocol. Once exam is complete flush line and de-access according to line specific nursingprotocol in the CT contrast administration guidelines link. 1 Each 09/03/2024 09/04/2024 ActiveStart: 04-28-2023 End: 86-42-8752mc contrast (will be provided with radiology test) MRI Rectum Inject, intravenously, once for 1 dose. No IV access, insert saline lock prior to the beginning of sedation, infusion, injection of imaging exam. Discontinue saline lock post exam. If Pt has a central line or IVAD, may access for administ ration according to line specific nursing protocol. Once exam is complete flush line and de-access according to line specific nursing protocol in the MR contrast administration guidelines link. 1 Each 0 04/28/2023 04/29/2023 Active Start: 03-07-2023 End: 32-42-4150rp contrast (will be provided with radiology test) MRI Rectum Inject, intravenously, once for 1 dose. No IV access, insert saline lock prior to the beginning of sedation, infusion, injection of imaging exam. Discontinue saline lock post exam. If Pt has a central line or IVAD, may access for administ ration according to line specific nursing protocol. Once exam is complete flush line and de-access according to line specific nursing protocol in the MR contrast administration guidelines link. 1 Each 0 03/07/2023 03/08/2023 Start: 03-07-2023 End: 95-06-3865vg contrast (will be provided with radiology test) MRI Rectum Inject, intravenously, once for 1 dose. No IV access, insert saline lock prior to the beginning of sedation, infusion, injection of imaging exam. Discontinue saline lock post exam. If Pt has a central line or IVAD, may access for administ ration according to line specific nursing protocol. Once exam is complete flush line and de-access according to line specific nursing protocol in the MR contrast administration guidelines link. 1 Each 0 03/07/2023 03/08/2023 Active Comment on above:MRI Rectum Inject, intravenously, once for 1 dose. [...] protocol in the MR contrast administration guidelines link.lactobacillus combination no.4 (Probiotic) 3 billion cell capsule (1 source) End: 82-15-8177ymesygnvxklig combination no.4 (Probiotic) 3 billion cell capsule Take 1 capsule by mouth once daily. 0 07/25/2023 Discontinued (Therapy completed)loperamide hydrochloride 2 mg oral capsule (4 sources)Opioid AgonistStart: 11-34-2581lizabkwito (Imodium) 2 MG capsule 08/30/2023 ActiveComment on above:Take 1 capsule by mouth before meals and at bedtime.magnesium gluconate 500 mg oral tablet (1 source)take 1 tablet by mouth once dailymagnesium, as gluconate, (Mag-G) 27 mg magnesium (500 mg) tablet Take 1 tablet (27 mg) by mouth once daily. 0 Active Dspoxjzy-Oqg-Otjn-Fa-Lutein (Multivitamin Women 50 Plus) 8 mg iron-400 mcg-300 mcg Tablet (3 sources)Start: 96-87-3085ldsz 1 tablet by mouth once daily Fdyyqvef-Ujy-Bpmr-Fa-Lutein (Multivitamin Women 50 Plus) 8 mg iron-400 mcg-300 mcg Tablet Active 1 TAB PO Daily November 01, 2018 11:00pmStart: 82-27-6413oave 1 tablet by mouth once uyvahIjebrril-Zlp-Ipom-Fa-Lutein (Multivitamin Women 50 Plus) 8 mg iron-400 mcg-300 mcg Tablet Active 1 TAB PO Daily November 02, 2018 12:00amMultivitamin Gummies Womens - (20 sources)Multivitamin Gummies Womens - Orally ActiveOmega 3 Fish Oil (20 sources)[place] 3 Fish Oil one oral daily Activeomega 5-esb-gjc-fish oil (Fish OiL) 1,000 mg (120 mg-180 mg) capsule (1 source)take 1 capsule by mouth once dailyomega 1-dut-hpd-fish oil (Fish OiL) 1,000 mg (120 mg-180 mg) capsule Take 1 capsule (1,000 mg) by mouth once daily. 0 ActiveOmega-3 Fatty Acids (Fish Oil) 1200 MG capsule delayed-release (3 sources)take 1 capsule by mouth once dailyOmega-3 Fatty Acids (Fish Oil) 1200 MG capsule delayed-release Take 1,200 mg by mouth Daily Activeomeprazole 40 mg delayed release oral capsule (20 sources)Proton Pump InhibitorStart: 07-09-2018 End: 73-85-8725wedf 1 capsule by mouth in the morningomeprazole (PriLOSEC) [address] capsule Take 40 mg by mouth in the morning. 11/11/2022 ActiveComment on above:Take 1 capsule by mouth every afternoon.Take 40 mg by mouth once daily.24 hr oxybutynin chloride 15 mg extended release oral tablet (20 sources)Cholinergic Muscarinic AntagonistStart: 86-49-9028ockp 1 tablet by mouth every twenty-four hours in the morningoxybutynin XL (Ditropan-XL) 15 MG 24 hr tablet Take 15 mg by mouth in the morning. 11/11/2022 ActiveStart: 02-28-2018 End: 03-46-4855ewra 1 tablet by mouth once dailyOxybutynin Chloride 15 mg tablet extended release 24hr Discontinued 15 MG PO Daily November 02, 201812:00am May 08, 2024 12:03pmComment on above:Take 15 mg by mouth.oxyCODONE hydrochloride 5 mg oral tablet (5 sources)Opioid AgonistStart: 11-09-2023 End: 43-10-0978uqtz 1 tablet by mouth every six hours as neededoxyCODONE IR (ROXICODONE) 5 mg immediate release tablet Indications: Post-op pain Take 1 tablet by mouth every 6 hours as needed for up to 7 days. 25 tablet 0 11/09/2023 11/17/2023 ActiveStart: 08-29-2023 End: 83-85-5800dghr 1 tablet by mouth every six hours as neededoxyCODONE IR (ROXICODONE) 5 mg immediate release tablet Indications: Post-op pain Take 1 tablet by mouth every 6 hours as needed for up to 7 days. 25 tablet 0 08/29/2023 09/06/2023 ExpiredComment on above:Take 1 tablet by mouth every 6 hours as needed for up to 7 days.polyethylene glycol 3350 110321 mg / potassium chloride 2970 mg / sodium bicarbonate 6740 mg / sodium chloride 5860 mg / sodium sulfate 97711 mg powder for oral solution (3 sources)Osmotic LaxativeStart: 22-41-9060Qligirmg 236 GM At 4:00 pm the day prior to colonoscopy Orally 8 ounces every 15 minutes for 1 daysPLEASE CHECK ALLERGIES Feb, Activeprobiotic (20 sources)probiotic Active Completed/Discontinued Medications MedicationDrug Class(es)DatesSig (Normalized)Sig (Original)acetaminophen 500 mg oral tablet (20 sources)Start: 08-29-2023 End: 30-14-5992gadh 2 tablets by mouth every eight hoursacetaminophen (TYLENOL) 500 mg tablet Take 2 tablets by mouth every 8 hours. 100 tablet 0 08/29/2023 02/06/2024 DiscontinuedComment on above:Take 2 tablets by mouth every 8 hours. acetaminophen 325 mg / HYDROcodone bitartrate 5 mg oral tablet (20 sources)Opioid AgonistStart: 08-26-2024 End: 91-96-7162lkjj 1 tablet by mouth every four to six hours as needed for pain Hydrocodone-Acetaminophen 5-325 mg tablet Discontinued 1 - 2 TAB PO EVERY 4-6 HOURS as needed for pain 20 7 September 04, 2024 September 10, 2024 12:43pm dispense #20 (twenty) dx: postopStart: 06-11-2024 End: 09-63-0256bccc 1 tablet by mouth every four to six hours as needed for pain Hydrocodone-Acetaminophen 5-325 mg tablet Discontinued 1 - 2 TAB PO EVERY 4-6 HOURS as needed for pain 30 June 11, 2024 June 11, 2024 12:47pm Start: 05-31-2024 End: 00-90-4720bymr 1 tablet by mouth every four to six hours as needed for pain Hydrocodone-Acetaminophen 5-325 mg tablet Discontinued 1 - 2 TAB PO EVERY 4-6 HOURS as needed for pain 30 June 11, 2024 August 20, 2024 9:52am Dispense: 30 (thirty) Diagnosis: L08.9Start: 05-22-2024 End: 65-20-2501mius 1 tablet by mouth every eight hours as needed for pain Hydrocodone-Acetaminophen 5-325 mg tablet Discontinued 1 TAB PO Every 8 hours as needed for pain 7 2 May 22, 2024 May 31, 2024 12:28pmStart: 06-26-2023 End: 74-34-6275sogk 1 tablet by mouth every six hours as needed for pain Hydrocodone-Acetaminophen 5-325 mg tablet Discontinued 1 TAB PO Q6H as needed for pain 20 June 26, 2023 September 30, 2023 7:51amacetaminophen 325 mg / oxyCODONE hydrochloride 5 mg oral tablet (14 sources)Opioid AgonistStart: 05-22-2024 End: 32-79-1589Gofbogvkj-Acetaminophen 5-325 mg tablet Discontinued 1 TAB PO As Directed May 22, 2024 1:00am May 31, 2024 12:27pmamLODIPine 5 mg / benazepril hydrochloride 10 mg oral capsule (20 sources)Dihydropyridine Calcium Channel Tanya, Angiotensin Converting Enzyme InhibitorStart: 09-30-2023 End: 75-74-9302ghro 1 capsule by mouth once dailyAmlodipine-Benazepril 5-10 mg capsule Discontinued 1 CAP PO Daily September 30, 2023 12:00am November 23, 2023 8:15amStart: 02-28-2018 End: 21-66-4681mkts 1 tablet by mouth once dailyAmlodipine-Benazepril 5-10 mg capsule Discontinued 1 TAB PO Daily November 02, 2018 12:00am 2023 9:32amComment on above:Take 1 capsule by mouth every morning.amoxicillin 500 mg oral tablet (20 sources)Penicillin-class AntibacterialStart: 06-13-2023 End: 84-20-7800Gbzllybmwko 500 mg tablet FOR DENTAL WORK 06/13/2023 09/03/2024 DiscontinuedComment on above:FOR DENTAL WORKatropine sulfate 0.025 mg / diphenoxylate hydrochloride 2.5 mg oral tablet (1 source)Anticholinergic, Cholinergic Muscarinic Antagonist, Antidiarrheal Start: 88-96-8111bfxa 1 tablet by mouth four times daily as neededdiphenoxylate- atropine (LOMOTIL) 2.5-0.025 mg per tablet Indications: Rectal adenocarcinoma (HCC) ,Diarrhea of presumed infectious origin Take 1 tablet by mouth four times a day as needed for up to 30 days. 30 tablet 1 07/12/2023 ActiveComment on above:Take 1 tablet by mouth four times a day as needed for up to 30 days. azithromycin 250 mg oral tablet (13 sources)Macrolide AntimicrobialStart: 07-09-2024 End: 14-70-7558Wvishjxihplf (Zithromax Z-Lazaro) 250 mg tablet Discontinued 0 PO .COMPLEX 6 July 09, 2024 1:00am August 14, 2024 1:52pm For 250 mg dose pack: take 500 mg today (day 1), then 250 mg for 4 days (days 2-5) POStart: 61-15-0220Asugxqnmb Z-Lazaro 250 MG 2 tablet on the first day, then 1 tablet daily for 4 days Orally Once a day for 5 day(s) May, Qxqxvg77 hr buPROPion hydrochloride 90 mg / naltrexone hydrochloride 8 mg extended release oral tablet (6 sources)Opioid Antagonist, AminoketoneStart: 18-56-1240nwzm 2 tablets by mouth every twelve hoursContrave 8-90 MG 2 tablets Orally Twice a day for 30 days Feb, Not-Takingcalcium carbonate 1500 mg / cholecalciferol 0.01 mg oral capsule (20 sources)Vitamin D End: 65-47-3229ismn 1 tablet by mouth once dailycalcium carbonate/vitamin d3(CALCIUM 600 WITH VITAMIN D3 600 MG (1,500 MG)-400 UNIT CAP) Take 1 tablet by mouth once daily. 0 02/06/2024 Discontinuedcalcium carbonate/vitamin d3(CALCIUM 600 WITH VITAMIN D3 600 MG (1,500 MG)-400 UNIT CAP) Take one(1) tablet three times daily. 0 Activetake 1 tablet by mouth once dailyCalcium + D 600-200 MG- UNIT 1 tablet Orally Once a day ActiveComment on above:Take one(1) tablet three times daily.Take 1 tablet by mouth once daily.calcium carbonate 1250 mg / cholecalciferol 1000 unt / vitamin k 0.4 mg chewable tablet (20 sources)Vitamin DStart: 11-02-2018 End: 46-88-7937wrqe 2 tablets by mouth once dailyCalcium-Vitamin D3-Vitamin K (Citracal-D3 Soft Chew) 500 mg-1,000 unit-40 mcg Tablet,Chewable Discontinued 2 TAB PO Daily November 02, 2018 12:00am June 26, 2023 11:46amcapecitabine 500 mg oral tablet (20 sources)Nucleoside Metabolic InhibitorStart: 04-05-2023 End: 28-24-2148Hsjbuajorjnu 500 mg Tablet Discontinued MG TABLET April 05, 2023 12:00am June 26, 2023 11:48amStart: 04-05-2023 End: 60-71-6357Whdfyldvbggl Discontinued MG TABLET April 05, 2023 12:00am June 26, 2023 11:48amStart: 03-21-2023 End: 13-06-3191qdwz 3 tablets by mouth twice dailycapecitabine (XELODA) 500 mg tablet Take 3 tablets (1,500 mg) by mouth twice daily Monday through Monday only on days of radiation. 180 tablet 03/21/2023 04/14/2023 DiscontinuedComment on above:Take 3 tablets (1,500 mg) by mouth twice daily Monday through Monday only on days of radiation.cephalexin 500 mg oral capsule (14 sources)Cephalosporin AntibacterialStart: 05-22-2024 End: 40-43-6360zjnu 1 capsule by mouth twice dailyCephalexin 500 mg capsule Discontinued 500 MG PO Twice daily May 22, 2024 1:00am June 11, 2024 2:10pmcompounded progesterone 50 mg capsule (20 sources) End: 48-68-5171lyka 3 capsules by mouth once daily at bedtimecompounded progesterone 50 mg capsule Take 150 mg by mouth daily at bedtime. 0 02/06/2024 Discontinuedtake 3 capsules by mouth once daily at bedtimecompounded progesterone 50 mg capsule Take 150 mg by mouth daily at bedtime. 0 Suspended take 3 capsules by mouth once daily at bedtimecompounded progesterone 50 mg capsule Take 150 mg by mouth daily at bedtime. 0 ActiveComment on above:Take 150 mg by mouth daily at bedtime.diclofenac sodium 50 mg / miSOPROStol 0.2 mg delayed release oral tablet (5 sources)Nonsteroidal Anti-inflammatory Drug, Prostaglandin E1 AnalogStart: 02-27-2009 End: 07-32-1389iaksbwjctq sodium/misoprostol(ARTHROTEC 50 50 MG-200 MCG TAB) as directed 0 02/27/2009 03/21/2023 DiscontinuedComment on above:as directed docosahexaenoic acid/epa (FISH OIL ORAL) (20 sources) End: 07-61-6660epov 2000 mg by mouth twice dailydocosahexaenoic acid/epa (FISH OIL ORAL) Take 2,000 mg by mouth two times a day. 02/06/2024 Discontinued End: 22-11-8428hgpk 2000 mg by mouth twice dailydocosahexaenoic acid/epa (FISH OIL ORAL) Take 2,000 mg by mouth two times a day. 0 02/06/2024 Discontinuedtake 2000 mg by mouth twice dailydocosahexaenoic acid/epa (FISH OIL ORAL) Take 2,000 mg by mouth two times a day. 0 Suspendedtake 2000 mg by mouth twice daily docosahexaenoic acid/epa (FISH OIL ORAL) Take 2,000 mg by mouth two times a day. 0 Activedocosahexaenoic acid/epa (FISH OIL ORAL) Take by mouth. 0 ActiveComment on above:Take by mouth.Take 2,000 mg by mouth two times a day.doxycycline hyclate 100 mg oral tablet (20 sources)Tetracycline-class DrugStart: 08-26-2024 End: 22-33-1221abzu 1 tablet by mouth twice dailyDoxycycline Hyclate 100 mg tablet Discontinued 100 MG PO Twice daily September 04, 2024 1:00am September 27, 2024 11:50amStart: 05-31-2024 End: 51-53-6026zsmz 1 tablet by mouth twice dailyDoxycycline Hyclate 100 mg tablet Discontinued 100 MG PO Twice daily 28 04August 14, 2024 2:04pm August 20, 2024 9:52amesomeprazole 20 mg delayed release oral capsule (20 sources)Proton Pump InhibitorStart: 11-02-2018 End: 05-41-4851desa 1 capsule by mouth once dailyEsomeprazole Magnesium (Nexium) 20 mg Capsule,Delayed Release(Dr/Ec) Discontinued 20 MG PO Daily November 02, 2018 12:00am March 06, 2023 8:54amferrous sulfate 325 mg oral tablet (20 sources)Start: 04-06-2023 End: 86-16-2591lize 1 tablet by mouth once dailyFerrous Sulfate (Ferosul) 325 mg (65 mg iron) tablet Discontinued 325 MG PO Daily April 06, 2023 12:00am June 26, 2023 11:48amFish Oil CAPS (1 source)Fish Oil CAPS TAKE 1 CAPSULE Daily Quantity: 0 Refills: 0 Ordered: 26-Oct-2022 DO Activegabapentin 100 mg oral capsule (20 sources)Anti-epileptic AgentStart: 11-21-2023 End: 36-62-1085ihgd 1 capsule by mouth three times dailyGabapentin 100 mg capsule Discontinued 100 MG PO Three times daily November 23, 2023 12:00am May 31, 2024 12:28pmibandronic acid 150 mg oral tablet (20 sources)BisphosphonateStart: 11-02-2018 End: 48-53-4065jgzc 1 tablet by mouth every monthIbandronate (Boniva) 150 mg Tablet Discontinued 150 MG PO every month November 02, 2018 12:00am March 06, 2023 9:00amLactobacillus acidophilus (20 sources) End: 29-62-2844Irhekxwmkvosb acidophilus (PROBIOTIC ORAL) Take by mouth. 06/20/2023 Discontinued End: 77-50-2631Udgumkiewnoev acidophilus (PROBIOTIC ORAL) Take by mouth. 0 06/20/2023 DiscontinuedLactobacillus acidophilus (PROBIOTIC ORAL) Take by mouth. 0 ActiveComment on above:Take by mouth.Lactobacillus Comb No.10 (Probiotic) 20 billion cell Capsule (20 sources)Start: 03-06-2023 End: 70-64-7852Rmlecvxqylzli Comb No.10 (Probiotic) 20 billion cell Capsule Discontinued 85994 MMU CELLS PO Daily March 06, 2023 12:00am June 11, 2024 2:10pm administer with a mealStart: 03-06-2023 End: 04-96-6568Xvlrcoihcbcrb Comb No.10 (Probiotic) 20 billion cell Capsule Discontinued 42982 MMU CELLS PO Daily March 05, 2023 11:00pm June 11, 2024 1:10pm administer with a mealStart: 17-98-5030Elhelcxbybxgr Comb No.10 (Probiotic) 20 billion cell Capsule Active 14500 MMU CELLS PO Daily 2022 11:00pm administer with a mealStart: 68-62-5560Lpamtfbuqkums Comb No.10 (Probiotic) 20 billion cell Capsule Active 59033 MMU CELLS PO Daily 2022 12:00am administer with a mealMagnesium (20 sources)Start: 03-06-2023 End: 56-67-1201rydz 1 tablet by mouth once dailyMagnesium 500 mg Tablet Discontinued 500 MG PO Daily March 06, 2023 12:00am November 23, 2023 8:15am Start: 03-06-2023 End: 50-19-1805ierx 1 tablet by mouth once dailyMagnesium 500 mg Tablet Discontinued 500 MG PO Daily March 05, 2023 11:00pm November 23, 2023 7:15am Start: 05-34-3001eeuv 500 mg by mouth once dailyMagnesium Active 500 MG PO Daily March 05, 2023 11:00pmStart: 85-17-2689aebf 500 mg by mouth once daily Magnesium Active 500 MG PO Daily March 06, 2023 12:00am End: 80-71-9713Ygkqsycqi 250 mg tab Take 500 mg by mouth. 06/20/2023 Discontinued End: 36-95-0513Gkxzyohat 250 mg tab Take 500 mg by mouth. 0 06/20/2023 DiscontinuedMagnesium 250 mg tab Take 500 mg by mouth. 0 ActiveMagnesium 500 MG TABS Take 1 tablet daily Quantity: 0 Refills: 0 Ordered: 26-Oct-2022 DO Active Comment on above:Take 500 mg by mouth.MEDICATION, NON-DATABASE (20 sources)take 1 dose by mouth once dailyMEDICATION, NON-DATABASE Take 1 Each by mouth once daily. Metabolic Maintenance DIM Complete - 100mg Diindolylmethane Supplement with Vitamin E, B12 + Active Folate 0 Activetake 1 dose by mouth once dailyMEDICATION, NON-DATABASE Take 1 Each by mouth once daily. [employer] supplies guzman mitochondrial micronutrients and a smart combination of alpha lipoic acid, N-acetyl cysteine, and acetyl L-carnitine 0 ActiveComment on above:Take 1 Each by mouth once daily. Metabolic Maintenance DIM Complete - 100mg Diindolylmethane Supplement with Vitamin E, B12 + ActiveFolateTake 1 Each by mouth once daily. [employer] supplies guzman mitochondrial micronutrients and a smart combination of alpha lipoic acid, N-acetyl cysteine, and acetyl L-carnitinemeloxicam 15 mg oral tablet (20 sources)Nonsteroidal Anti-inflammatory DrugStart: 02-27-2023 End: 64-60-0842vsjy 1 tablet by mouth once dailyMeloxicam 15 mg tablet Discontinued 15 MG PO Daily 90 90 April 30, 2024 1:32pm August 08, 2024 9:33amComment on above:Take 1 tablet by mouth every afternoon.Take 1 tablet by mouth once daily.methylPREDNISolone 4 mg oral tablet (17 sources)CorticosteroidStart: 07-09-2024 End: 20-15-6799vckp 1 tablet by mouth onceMethylprednisolone (Medrol (Lazaro)) 4 mg tablets,dose pack Discontinued 0 PO per package directions July 09, 2024 1:00am August 20, 2024 9:53am PO PER PKG DIRStart: 59-89-4270Dizfhf 4 MG as directed Orally May, Not-TakingmetroNIDAZOLE 500 mg oral tablet (1 source)Nitroimidazole AntimicrobialStart: 79-26-5418nxha 1 tablet by mouth three times dailymetroNIDAZOLE (FLAGYL) 500 mg tablet Indications: Rectal cancer (HCC) Take 1 tablet by mouth three times a day. Take 1 tablet at 6pm, 7pm, and 11pm, the evening prior to surgery. 3 tablet 0 08/03/2023 ActiveComment on above:Take 1 tablet by mouth three times a day. Take 1 tablet at 6pm, 7pm, and 11pm, the evening prior tosurgery.Multivit With Min-Folic Acid (Adult Multivitamin Gummies) 120 mcg tablet,chewable (14 sources)Start: 10-30-2023 End: 55-78-9640nnui 1 tablet by mouth once dailyMultivit With Min-Folic Acid (Adult Multivitamin Gummies) 120 mcg tablet,chewable Discontinued 1 TAB PO Daily October 30, 2023 12:00am November 23, 2023 8:15amStart: 10-30-2023 End: 05-39-8533smwh 1 tablet by mouth once dailyMultivit With Min-Folic Acid (Adult Multivitamin Gummies) 120 mcg tablet,chewable Discontinued 1 TAB PO Daily October 29, 2023 11:00pm November 23, 2023 7:21vdOpmnbmub-Spx-Daoj-Fa-Vit K-Lut (Multivitamin Women 50 Plus) 8 mg iron-400 mcg-300 mcg Tablet (20 sources)Start: 11-02-2018 End: 53-00-3967pnwx 1 tablet by mouth once vloovUeltzepj-Ldv-Qpoy-Fa-Vit K-Lut (Multivitamin Women 50 Plus) 8 mg iron-400 mcg-300 mcg Tablet Discontinued 1 TAB PO Daily November 01, 2018 11:00pm March 06, 2023 8:01amStart: 11-02-2018 End: 42-66-7706rapj 1 tablet by mouth once pzdgsDpzhykzl-Vsy-Ewyo-Fa-Vit K-Lut (Multivitamin Women 50 Plus) 8 mg iron-400 mcg-300 mcg Tablet Discontinued 1 TAB PO Daily November 02, 2018 12:00am March 06, 2023 9:01amnaproxen 500 mg oral tablet (20 sources)Nonsteroidal Anti-inflammatory DrugStart: 11-02-2018 End: 53-37-4694crqn 1 tablet by mouth once dailyNaproxen 500 mg tablet Discontinued 500 MG PO Daily November 02, 2018 12:00am March 06, 2023 8:56am take 1 tablet by mouth every twelve hours at mealtime as neededNaproxen 500 MG 1 tablet with food or milk as needed Orally every 12 hrs for 90 days Not-Taking neomycin sulfate 500 mg oral tablet (1 source)Aminoglycoside AntibacterialStart: 68-28-0602ujfwfsln 500 mg tablet Indications: Rectal cancer (HCC) Take 2 tablets by mouth as directed. Take 2 tablet at 6pm, 7pm, and 11pm the evening prior to surgery. 6 tablet 0 08/03/2023 ActiveComment on above:Take 2 tablets by mouth as directed. Take 2 tablet at 6pm, 7pm, and 11pm the evening prior to surgery.nitroglycerin 0.4 mg sublingual tablet (20 sources)Nitrate VasodilatorStart: 07-07-2023 End: 06-89-8600hsdlsqdzgpxzr sublingual (NITROQUICK) 0.4 mg SL tablet Dissolve 1 tablet under the tongue as neededfor chest pain, may repeat every 5 minutes if no relief up to 3 times. 25 tablet 0 07/07/2023 02/06/2024 Discontinued (Discontinued by Patient)Comment on above:Dissolve 1 tablet under the tongue as needed for chest pain, may repeat every 5 minutes if no relief up to 3 times. [place] 0-Rew-Udc-Fish Oil (Fish Oil) 1,000 mg (120 mg-180 mg) Capsule (20 sources)Start: 11-02-2018 End: 76-40-0029sokx 1 capsule by mouth once dailyOmega 7-Ozp-Cwu-Fish Oil (Fish Oil) 1,000 mg (120 mg-180 mg) Capsule Discontinued 1 CAP PO Daily November 02, 2018 12:00am May 31, 2024 12:29pmStart: 11-02-2018 End: 33-70-2598ojjn 1 capsule by mouth once dailyOmega 5-Gmv-Jdo-Fish Oil (Fish Oil) 1,000 mg (120 mg-180 mg) Capsule Discontinued 1 CAP PO Daily November 01, 2018 11:00pm May 31, 2024 11:29amStart: 56-36-5447mwrc 1 capsule by mouth once dailyOmega 4-Dho-Scp-Fish Oil (Fish Oil) 1,000 mg (120 mg-180 mg) Capsule Active 1 CAP PO Daily November 01, 2018 11:00pmStart: 04-44-5719zhwo 1 capsule by mouth once dailyOmega 7-Hrk-Ohq-Fish Oil (Fish Oil) 1,000 mg (120 mg-180 mg) Capsule Active 1 CAP PO Daily November 02, 2018 12:00amondansetron 4 mg oral tablet (20 sources)Serotonin-3 Receptor AntagonistStart: 05-22-2024 End: 73-55-9716wrvv 1 tablet by mouth every eight hours as needed for nausea and vomitingOndansetron Hcl 4 mg tablet Discontinued 4 MG PO Every 8 hours as needed for nausea and vomiting May 22, 2024 1:00am June 11, 2024 2:11pm Start: 03-21-2023 End: 99-86-2531pagw 1 tablet by mouth every eight hours as neededondansetron (ZOFRAN) 8 mg tablet Take 1 tablet by mouth every 8 hours as needed for nausea/vomiting. 90 tablet 2 03/21/2023 02/06/2024 DiscontinuedStart: 01-11-2023 End: 61-52-6805zqsostiaigj ODT (Zofran-ODT) 8 MG disintegrating tablet DISSOLVE ONE TABLET ON THE TONGUE EVERY 8 HOURS NEEDED FOR NAUSEA 01/11/2023 Active Comment on above:Take 1 tablet by mouth every 8 hours as needed for nausea/vomiting.phenazopyridine hydrochloride 100 mg oral tablet (10 sources)Start: 05-01-2023 End: 87-17-7647okuh 2 tablets by mouth every eight hours as needed phenazopyridine (PYRIDIUM) 100 mg tablet Take 2 tablets by mouth three times a day as needed. 30 tablet 2 05/01/2023 06/20/2023 DiscontinuedComment on above: Take 2 tablets by mouth three times a day as needed.polyethylene glycol 3350 94296 mg powder for oral solution (20 sources)Osmotic LaxativeStart: 04-05-2023 End: 40-65-6522Mgienkmxcxys Glycol 3350 (Miralax) 17 gram Powder In Packet Discontinued 17 GM PO Daily as needed for Constipation April 05, 2023 12:00am September 30, 2023 7:52amComment on above:Take by mouth once daily. Dissolve dose in 4 - 8 ounces of liquid and take as directed.potassium 99 mg extended release oral tablet (20 sources)Start: 03-06-2023 End: 45-13-4036qqfe 1 tablet by mouth once dailyPotassium 99 mg Tablet Discontinued 99 MG PO Daily March 06, 2023 12:00am June 26, 2023 11: 49amtake 1 tablet by mouth once dailyPotassium 99 MG Oral Tablet TAKE 1 TABLET DAILY. Quantity: 0 Refills: 0 Ordered: 26-Oct-2022 DO Activepotassium citrate 99 mg oral tablet (20 sources) End: 46-59-1734pipn 1 tablet by mouth once daily in the morningpotassium citrate 99 mg cap Take 1 tablet by mouth every morning. 06/20/2023 DiscontinuedComment on above:Take 1 tablet by mouth every morning.prochlorperazine 10 mg oral tablet (20 sources)PhenothiazineStart: 03-21-2023 End: 47-01-1937lwwl 1 tablet by mouth every six hours as needed for nausea Prochlorperazine Maleate (Compazine) 10 mg Tablet Discontinued 10 MG PO Q6H as needed for Nausea April 05, 2023 12:00am November 23, 2023 8:16amComment on above:Take 1 tablet by mouth every 6 hours as needed.progesterone 100 mg oral capsule (20 sources)ProgesteroneStart: 06-26-2023 End: 46-27-3253lpuj 1 capsule by mouth once dailyProgesterone Micronized 100 mg Capsule Discontinued 150 MG PO Daily June 26, 2023 1:00am November 23, 2023 8:16amStart: 10-52-5127snth 150 mg by mouth once dailyProgesterone Micronized Active 150 MG PO Daily June 26, 2023 1:00amStart: 04-05-2023 End: 27-93-2553Ujsdcqqditxa 50 mg/mL Oil Discontinued MG IM April 05, 2023 12:00am June 26, 2023 11:50amStart: 04-05-2023 End: 17-30-2118Ozryunzqxgiw Discontinued MG IM April 05, 2023 12:00am June 26, 2023 11:50ampsyllium 3400 mg powder for oral suspension (1 source)Start: 34-22-6992lbem 1 dose by mouth three times dailypsyllium (METAMUCIL) 3.4 gram packet Take 1 Packet by mouth three times a day. 90 Packet 1 08/30/2023 SuspendedComment on above:Take 1 Packet by mouth three times a day. sulfamethoxazole 800 mg / trimethoprim 160 mg oral tablet (14 sources)Dihydrofolate Reductase Inhibitor Antibacterial, Sulfonamide AntimicrobialStart: 05-22-2024 End: 71-92-6664Icukjjekrhwqpghu-Trimethoprim 800-160 mg tablet Discontinued 1 TAB PO As Directed May 22, 2024 1:00am June 11, 2024 2:80ja8354 mg testosterone 0.01 mg/mg topical gel (20 sources)AndrogenStart: 04-05-2023 End: 93-68-4121Rfvpuedgutmv 1 % (25 mg/2.5gram) Gel In Packet Discontinued 1 PACKET TRANSDERML Daily April 05, 2023 12:00am September 30, 2023 7:52am End: 62-29-9205Ssovzypulmtk 12.5 mg/ 1.25 gram (1 %) glpm Apply 2 Pump as directed once daily. 0.5 MIL 0 02/06/2024 DiscontinuedTestosterone 12.5 mg/ 1.25 gram (1 %) glpm Apply 4 Pump as directed once daily. 0 ActiveComment on above: Apply 4 Pump as directed once daily.Apply 2 Pump as directed once daily. 0.5 MIL traMADol hydrochloride 50 mg oral tablet (20 sources)Opioid AgonistStart: 11-09-2018 End: 30-50-6714awvb 1 tablet by mouth every four hours as needed for pain Tramadol 50 mg Tablet Discontinued 50 MG PO Q4H as needed for Pain 20 November 09, 2018 12:00am March 06, 2023 8:57amtriamcinolone acetonide 32 mg injection (20 sources)CorticosteroidStart: 53-45-3354Vibatjqy May, 32 mgTumeric Curcumin Complex (20 sources)Start: 11-02-2018 End: 33-55-9347qafi 2 capsules by mouth once dailyTumeric Curcumin Complex Discontinued 2 CAP PO Daily November 01, 2018 11:00pm March 06, 2023 8:01am Start: 11-02-2018 End: 78-65-9369jjup 2 capsules by mouth once dailyTumeric Curcumin Complex Discontinued 2 CAP PO Daily November 02, 2018 12:00am March 06, 2023 9:01am Start: 05-65-8400vqyt 2 capsules by mouth once dailyTumeric Curcumin Complex Active 2 CAP PO Daily November 01, 2018 11:00pmStart: 97-04-9330goyk 2 capsules by mouth once dailyTumeric Curcumin Complex Active 2 CAP PO Daily November 02, 2018 12:00amvenlafaxine 75 mg oral tablet (20 sources)Serotonin and Norepinephrine Reuptake InhibitorStart: 02-28-2018 End: 32-56-2193pwkg 1 tablet by mouth once dailyVenlafaxine 75 mg tablet Discontinued 75 MG PO Daily November 02, 2018 12:00am March 06, 2023 9:01am Comment on above:Take one(1) tablet daily.Vitamin D3-Vitamin K2 (Mk4) (K2 Plus D3) 1,000-100 unit-mcg Tablet (20 sources)Start: 04-05-2023 End: 84-37-1201gqtv 1 tablet by mouth once dailyVitamin D3-Vitamin K2 (Mk4) (K2 Plus D3) 1,000-100 unit-mcg Tablet Discontinued 1 TAB PO Daily April 05, 2023 12:00am June 26, 2023 11:50amStart: 04-05-2023 End: 18-21-5190ptla 1 tablet by mouth once dailyVitamin D3-Vitamin K2 (Mk4) (K2 Plus D3) 1,000-100 unit-mcg Tablet Discontinued 1 TAB PO Daily April 04, 2023 11:00pm June 26, 2023 10:50amStart: 99-50-5576cdno 1 tablet by mouth once dailyVitamin D3-Vitamin K2 (Mk4) (K2 Plus D3) 1,000-100 unit-mcg Tablet Active 1 TAB PO Daily April 05, 2023 12:00amvitamin D3/vitamin K2, MK4, (K2 PLUS D3 ORAL) (20 sources) End: 60-15-4814vhjz 1 dose by mouth once dailyvitamin D3/vitamin K2, MK4, (K2 PLUS D3 ORAL) Take 1 Dose by mouth once daily. 0 02/06/2024 Discontinuedtake 1 dose by mouth once dailyvitamin D3/vitamin K2, MK4, (K2 PLUS D3 ORAL) Take 1 Dose by mouth once daily. 0 Suspendedtake 1 dose by mouth once dailyvitamin D3/vitamin K2, MK4, (K2 PLUS D3 ORAL) Take 1 Dose by mouth once daily. 0 Active Comment on above:Take 1 Dose by mouth once daily.vortioxetine 10 mg oral tablet (20 sources)Start: 10-03-2022 End: 69-19-9319cuon 1 tablet by mouth once dailyVortioxetine 10 mg tablet Discontinued 10 MG PO Daily October 30, 2023 12:00am August 20, 2024 9:54am FreeTextSi tablet Orally Once a day; Note: Source Status: Taking; Provider: Dixie Quintero RStart: 09-01-2022 End: 54-60-4676fysm 1 tablet by mouth once dailyVortioxetine (Trintellix) 5 mg tablet Discontinued 5 MG PO Daily October 26, 2023 12:00am October 30, 2023 1:38pmvortioxetine (TRINTELLIX) 5 mg tablet Take 10 mg by mouth. 0 ActiveComment on above:Take 10 mg by mouth.Take 10 mg by mouth once daily. Problems Active Problems Problem ClassificationProblemDateDocumented DateEpisodic/ChronicAcute and unspecified renal failure (1 source)Acute kidney failure, unspecified; Translations: [JOSE MIGUEL (acute kidney injury) (HCC)]Onset: 50-01-9070VtekmuggVzozhoj disorders (20 sources)Mixed anxiety and depressive disorder; Translations: [Other specified anxiety disorders]Onset: 93-41-5281UjtfratUtcysh of colon (1 source)Personal history of other malignant neoplasm of large intestine; Translations: [History of colon cancer]Onset: 53-60-3258NkikydtgJjcxad of rectum and anus (20 sources)Adenocarcinoma of rectum; Translations: [Malignant neoplasm of rectum]Onset: 648585-57-5911DwontviNoplmy of rectum and anus (16 sources)History of malignant neoplasm of rectum; Translations: [Personal history of other malignant neoplasm of rectum, rectosigmoid junction, and anus] Onset: 793192-36-0266IyewzngwGjmejhy dysrhythmias (20 sources)Atrial fibrillation; Translations: [Unspecified atrial fibrillation] Onset: 77-02-7708OcmjyhkMosaiyy dysrhythmias (1 source)Cardiac dysrhythmiasOnset: 55-05-1517Krvysvza atherosclerosis and other heart disease (1 source)Coronary atherosclerosis and other heart diseaseOnset: 04-25-2017 Disorders of lipid metabolism (20 sources)Hyperlipidemia; Translations: [Hyperlipidemia, unspecified]Onset: 72-14-0151YepssahFnbbcyrogcktvt and diverticulitis (20 sources)Diverticular disease; Translations: [Diverticulosis of intestine, part unspecified, without perforation or abscess without bleeding]Onset: 946549-02-5557ZetctciKewotgsdjp disorders (20 sources)Gastroesophageal reflux disease; Translations: [Gastro-esophageal reflux disease without esophagitis]Onset: 77-56-9661HstpiivFipsrldpj hypertension (20 sources)Essential (primary) hypertension; Translations: [Hypertensive disorder]Onset: 34-63-1577YieouvrApxucju on above:history ofEssential hypertension (2 sources)Essential hypertensionOnset: 87-89-6075Rcvle and electrolyte disorders (1 source)Hypo-osmolality and hyponatremia; Translations: [Hyponatremia]Onset: 18-01-8850KrxjmgmxKyuqbfsgluzrzaly hemorrhage (7 sources)Blood-tinged feces; Translations: [Melena]EpisodicGenitourinary symptoms and ill-defined conditions (20 sources)Female stress incontinence; Translations: [Stress incontinence (female) (male)]Onset: 54-88-7726UidavicRjsdpcqrlxnse symptoms and ill-defined conditions (2 sources)Dysuria; Translations: [Dysuria]21-32-5342AyvsvxljYuynkxolyova breast conditions (3 sources)Fibrocystic disease of breast; Translations: [Diffuse cystic mastopathy of unspecified breast]Onset: 298945-01-1969TfotyjsGoxswmrjzln deficiencies (3 sources)Vitamin D deficiency; Translations: [Vitamin D deficiency, unspecified]Onset: 218777-88-1923DtnhuyeKzsnjtbljwhdnc (20 sources)Arthritis; Translations: [Unspecified osteoarthritis, unspecified site]Onset: 12-20-2005 Resolved: 45-78-3792EtseyggOuftbyzecjqn (20 sources)Senile osteoporosis; Translations: [Age-related osteoporosis without current pathological fracture]Onset: 464987-03-8611KnbeifbZonpr aftercare (3 sources)Surgical follow-up; Translations: [Encounter for follow-up examination after completed treatment for conditions other than malignant neoplasm]18-46-6410EjlhkbzxWorsh aftercare (2 sources)Encounter for follow-up examination after completed treatment for malignant neoplasm; Translations:[Encounter for follow-up examination after completed treatment for malignant neoplasm]Onset: 77-54-6733WcgppzzpRpdaa connective tissue disease (3 sources)Muscle finding; Translations: [Myalgia, unspecified site]04-25-2023 EpisodicOther connective tissue disease (1 source)Pain in unspecified limb; Translations: [Pain in unspecified limb] Onset: 19-19-0111ChiqenfmZzpzj connective tissue disease (2 sources)Spasm; Translations: [Other muscle spasm]90-34-6565MjdjpfywQjhxz connective tissue disease (1 source)Other muscle spasm; Translations: [Muscle spasm]Onset: 01-28-2025 EpisodicOther disorders of stomach and duodenum (1 source)Functional dyspepsia; Translations: [Dyspepsia]EpisodicOther gastrointestinal disorders (20 sources)Ileostomy present; Translations: [Ileostomy status]Onset: 08-26-2023 23-07-4251XmtliyxJougv gastrointestinal disorders (20 sources)Ileostomy bag changed; Translations: [Encounter for attention to ileostomy]Onset: 289035-12-8464HiyghfhCnrly gastrointestinal disorders (3 sources)Ileostomy status; Translations: [Ileostomy status]Onset: 09-04-2023 43-52-3596AxyxscaWxjeq gastrointestinal disorders (1 source)Encounter for attention to ileostomy; Translations: [Attention to ileostomy (HCC)]Onset: 57-83-6169GadsvwtHjnud gastrointestinal disorders (6 sources)Passing flatus; Translations: [Flatulence]EpisodicOther gastrointestinal disorders (6 sources)Altered bowel function; Translations: [Change in bowel habit]Episodic Other gastrointestinal disorders (1 source)Change in bowel habitEpisodicOther gastrointestinal disorders (1 source)FlatulenceEpisodicOther gastrointestinal disorders (1 source)Other specified diseases of intestine; Translations: [Colonic mass] EpisodicOther gastrointestinal disorders (2 sources)Mass of colon; Translations: [Other specified diseases of intestine] EpisodicOther nervous system disorders (20 sources)Carpal tunnel syndrome of right wrist; Translations: [Carpal tunnel syndrome, right upper limb]ChronicOther nervous system disorders (3 sources)Carpal tunnel syndrome of left wrist; Translations: [Carpal tunnel syndrome, left upper limb]Onset: 704154-62-7397TefthfrGyvna nervous system disorders (2 sources)Other acute postprocedural pain; Translations: [Post-op pain]Onset: 92-11-4841NqhztyjwMtiot nervous system disorders (11 sources)Pain in limb; Translations: [Other acute postprocedural pain] 48-38-4198WnnsnvrsEnojw non-traumatic joint disorders (1 source)Pain in right hip joint; Translations: [Pain in right hip]11-21-2023 EpisodicOther nutritional; endocrine; and metabolic disorders (1 source)Overweight in adulthood with body mass index of 25 or more but less than 30; Translations: [Overweight]EpisodicResidual codes; unclassified (4 sources)Asymptomatic menopausal state; Translations: [ASYMPTOMATIC MENOPAUSAL STATE]Onset: 92-88-3619BzvmefbcNdatqpul codes; unclassified (2 sources)Body mass index (BMI) 24.0-24.9, adult; Translations: [Body mass index (BMI) 24.0-24.9, adult]Onset: 70-24-2498TtqdpffuDsyfjahi codes; unclassified (20 sources)Other specified postprocedural states; Translations: [Other postprocedural status]Onset: 736091-15-8434HvicnysxOzntgmdd codes; unclassified (7 sources)Postprocedural state finding; Translations: [Other specified postprocedural states]81-46-0418LpdfoygeGjoclaww codes; unclassified (2 sources)Postmenopausal state; Translations: [Asymptomatic menopausal state] Onset: 789186-83-8752ZnqhmojhKoxx and subcutaneous tissue infections (20 sources)Cellulitis; Translations: [Cellulitis, unspecified]Onset: 05-22-2024 24-87-8714XndkmyvsBhuuanjmpojv (1 source)Obesity, unspecified / E66.9(ICD-9)Onset: 53-55-3313Cpgwhhvdpzlq (1 source)Pure hypercholesterolemia, unspecified / E78.00(ICD-9)Onset: 33-36-8234Snuhwnbzgglp (1 source)Family hx of ischem heart dis and oth dis of the circ sys / Z82.49(ICD-9)Onset: 00-96-4925Sdurzinpreng (1 source)Abnormal result of other cardiovascular function study / R94.39(ICD-9) Onset: 53-14-7013Adbnxzksvffl (2 sources)Colonoscopy Care CompanionOnset: 046217-82-2248Wfcqsnagyrlv (1 source)Physical TherapyOnset: 02-19-2025 Past or Other Problems Problem ClassificationProblemDateDocumented DateEpisodic/ChronicAbdominal pain (8 sources)Indigestion; Translations: [Epigastric pain]Onset: 11-06-2023 04-16-0708TcfgzmgnVhcbsyixib and other anemia (20 sources)Iron deficiency anemia; Translations: [Other iron deficiency anemias]Onset: 730029-71-1760QhnhciuqIcnukpzr mellitus without complication (20 sources)Hyperglycemia; Translations: [Hyperglycemia, unspecified]Onset: 101023-00-4259KhnlcsqgHqkppgljpkx (20 sources)Hemorrhoids; Translations: [Unspecified hemorrhoids]Onset: 818906-32-2499ZrhqnaevMvklffnxeumda and screening for infectious disease (20 sources)Patient encounter status; Translations: [Other specified vaccination]Onset: 11-06-2022 Resolved: 242355-44-5759LpqotynfHdckqzymai obstruction without hernia (20 sources)Small bowel obstruction; Translations: [Unspecified intestinal obstruction, unspecified as to partial versus complete obstruction]Onset: 08-31-2023 Resolved: 944828-77-9047HdjxjuafJtslmxuoq of skin (20 sources)History of malignant melanoma of the skin; Translations: [Personal history of malignant melanoma ofskin]Onset: 289925-16-1089SskcabwgHhnabr and vomiting (6 sources)Vomiting; Translations: [Vomiting, unspecified]Onset: 11-06-2023 95-54-4518KlbdcawmOxbqomsljpl chest pain (20 sources)Chest pain; Translations: [Chest pain, unspecified]Onset: 07-25-2023 92-21-3407ZaeosixoZaiiy circulatory disease (6 sources)H/O: atrial fibrillation; Translations: [Personal history of other diseases of circulatory system]Onset: 783210-13-1083AmvpvlddUvjqr connective tissue disease (1 source)Pain in right hand; Translations: [Pain in right hand]Onset: 99-14-1604AuszzrnmEfgvp connective tissue disease (1 source)Pain in right finger(s); Translations: [Pain in right finger(s)]Onset: 02-39-1169ArfutktyDzzkp gastrointestinal disorders (5 sources)Other specified symptoms and signs involving the digestive system and abdomen; Translations: [Othersymptoms involving digestive system]Onset: 500655-35-5361ZeuoibzvGahfv nervous system disorders (20 sources)Acute postoperative pain; Translations: [Other acute postprocedural pain]Onset: 563757-22-5532MkeknjstFwgsa non-traumatic joint disorders (1 source)Pain in right kneeOnset: 02-11-2022 Resolved: 45-06-2050EboxlrpgPfioc non-traumatic joint disorders (1 source)Pain in left kneeOnset: 02-11-2022 Resolved: 84-42-8536ZhfcydiiDycmi screening for suspected conditions (not mental disorders or infectious disease) (6 sources)Cardiovascular stress test abnormal; Translations: [Other nonspecific abnormal results of function study of cardiovascular system]Onset: 11-03-2022 Resolved: 55-17-0775VmwcvrqvPlhfugkq codes; unclassified (5 sources)Body mass index 20-24 - normal; Translations: [Body mass index (BMI) 24.0-24.9, adult]Onset: 391155-78-2035NmnmlotrIfgkjqwddgkr (1 source)Never smoked tobacco; Translations: [Never a smoker]Unclassified (1 source)Onset: 257195-71-7809Bfyqdgs tract infections (7 sources)Acute urinary tract infection; Translations: [Urinary tract infection, site not specified]Onset: 882347-13-3998ZvuhnqdxEeiwv infection (20 sources)COVID-19; Translations: [Pneumonia due to COVID-19 virus]Onset: 299948-37-1156Plfwekxc Results Test NameValueInterpretationReference RangeFacilityCNPNon 41-96-3896TVZX Telephone (SELMAA) EVAN GILL ([id number]) 1955 F Date Time Provider Department 04/16/25 Del HUDSON During your visit today, we recorded the following information about you: Prachi Gill RN 04/16/2025 10:28 AM Signed Pt doing well without significant issues. She is following with DR Singer and Dr Corona and requests to be seen by our office PRN if possible. Dr Hudson is in agreement with this and pt was notified to call anytime with questions or concerns. Prachi Gill RN Allergies As of Date: 04/16/2025 (No Known Allergies) Date Reviewed: 03/13/2025 Reviewed by: Alanna Gee RN - Fully Assessed Reason for Visit: Patient Update [1234] Prescriptions as of 04/16/2025 - INV SEMAGLUTIDE 0.25 MG/0.5 ML INJECTION (IRB 24-915) Inject 0.25 mg subcutaneously one time a week. For Investigational Drug Use Only. PI: Ruthann Cisneros MD. - LEXAPRO 10 mg tablet - meloxicam [...] once daily. Problem List As Of Date 04/16/2025 Noted Resolved OSTEOARTHROS NOS-ANKLE [M19.079] 12/20/2005 Personal [...] 11/06/2023 Encounter Status:Closed by PRACHI GILL on 04/16/25[facility] EVALon [id number] POSTPROC EVALHNO ID: [id number] Author: ZOHAIB NICOLE MD Service: Anesthesiology Author Type: Anesthesiologist Type: Anesthesia Postprocedure Evaluation Filed: 03/13/2025 11:45 Note Text: POST ANESTHESIA EVALUATION NOTE : 1955 Procedure Summary Date: 03/13/25 Room / Location: Procedures Anesthesia Start: 0834 Anesthesia Stop: 907 Procedure: COLONOSCOPY SCREENING Diagnosis: Encounter for follow-up surveillance of rectal cancer (Surveillance: History of piecemeal removal of adenoma on last exam 6 months ago) Scheduled Providers: Laisha Singer MD; Alex Snow APRN.ONCOLOGY RESEARCH RN; Zohaib Nicole MD; Gricel Aguilar RN Responsible Provider: Zohaib Nicole MD Anesthesia Type: MAC ASA Status: 3 Anesthesia Type: MAC Last Vitals Vitals Value Taken Time BP 129/90 03/13/25 09:30 Temp 36.1 ?C (97 ?F) 03/13/25 09:06 Pulse 62 03/13/25 09:35 Resp 16 03/13/25 09:30 SpO2 100 % 03/13/25 09:35 Vitals shown include unfiled device data. Post Anesthesia Patient Status Patient Evaluation: PACU. PACU/ICU Patient Condition: stable. Anticipated Disposition: phase 2 then home. Neurological Status: aware and responsive. Pulmonary Status: breathing comfortably on room air Airway Control: returned to baseline unsupported. Cardiovascular Status: stable. Pain Management: clinically adequate - multimodal analgesia pain management approach Postoperative Hydration: acceptable. Intraoperative Events: no significant anesthesia events Recommendation: continue current plan of care. Anesthesia Observations No Documentation SIGNATURE: Zohaib Nicole MD PATIENT NAME: Evan Gill DATE: March 13, 2025 TIME: 11:45 AM CSN: [id number] PRE-OPon [id number] PRE-OPHNO ID: [id number] Author: ZOHAIB NICOLE MD Service: Anesthesiology Author Type: Anesthesiologist Type: Anesthesia Preprocedure Evaluation Filed: 03/13/2025 08:25 Note Text: ANESTHESIOLOGY DAY OF SURGERY NOTE : 1955 Procedure Information Date/Time: 03/13/25 0830 Scheduled providers: Laisha Singer MD; Alex Snow APRN.ONCOLOGY RESEARCH RN; Zohaib Nicole MD; Gricel Aguilar RN Procedure: COLONOSCOPY SCREENING Location: Procedures Estimated body mass index is 25.09 kg/m? as calculated from the following: Height as of 02/20/25: 162.6 cm (5' 4 ). Weight as of 02/20/25: 66.3 kg (146 lb 2.6 oz). Most recent hematocrit and potassium results: Hematocrit 34.2 02/10/2025 Potassium 4.1 02/10/2025 Relevant Problems CARDIO (+) Atrial fibrillation (HCC) (+) Essential hypertension (+) Hemorrhoids GI (+) GERD (gastroesophageal reflux disease) Gastrointestinal (+) Ileostomy present (HCC) Oncology (+) Rectal adenocarcinoma (HCC) Other (+) Osteoarthrosis, unspecified whether generalized or localized, ankle and foot I - PHYSICAL EVALUATION AIRWAY Patient intubated: No. Tracheostomy tube not present Mallampati: II. TM distance: >3 FB. Neck ROM: full ROM without neurological symptoms. Mouth opening: >3 FB. Short neck: no. Thick neck: no DENTAL Normal dental observations. Dental findings: teeth intact. Additional exam findings: no II - ANESTHESIA PLAN ASA Score: 3 Anesthetic Plan: MAC NPO Status: adequate Monitoring Plan Monitoring plan: Standard ASA. Post Procedure Analgesic Plan Postoperative analgesic plan: parenteral or oral opioids and multimodal analgesia. Informed Consent Anesthetic risks, benefits, alternatives, personnel and consent discussed: yes. Patient / Responsible Green Party agrees to proceed: yes Patient / Surrogate agrees to blood products: blood products not planned DNR status not reviewed with patient and/or family prior to surgery. Significant changes in the patient condition since the History and Physical, not otherwise documented in primary service progress note: no. Potential Anesthesia issues that may suggest increased risk of complications or contraindication to planned procedure: none. Vitals Value Taken Time BP 159/97 03/13/25 07:40 Pulse 77 03/13/25 07:40 Resp 16 03/13/25 07:40 Temp 35.9 ?C (96.7 ?F) 03/13/25 07:40 SpO2 100 % 03/13/25 07:40 Outpatient Medications as of 03/13/2025 Medication Sig LEXAPRO 10 mg tablet meloxicam (MOBIC) 15 [...] Take 81 mg by mouth once daily. INV SEMAGLUTIDE 0.25 MG/0.5 ML INJECTION (IRB 24-915) Inject 0.25 mg subcutaneously one time a week. For Investigational Drug Use Only. PI: Ruthann Cisneros MD. Facility-Administered Medications as of 03/13/2025 Medication Dose Route Frequency lidocaine (PF) 10 mg/mL (1 %) 1-2 mg injection (XYLOCAINE) 0.1-0.2 mL INTRADERMAL PRN NaCl 0.9% iv infusion 30 mL/hr INTRAVENOUS CONTINUOUS I have interviewed and examined the patient. I have reviewed the medical record and/or the pre-anesthesia evaluation, pertinent labs, and test results. This contains updated information obtained within 48 hours of Surgery/Procedure. SIGNATURE: Zohaib Nicole MD PATIENT NAME: Evan Gill DATE: March 13, 2025 TIME: 8:24 AM CSN: [id number] HospitalColonoscopyon [facility] Patient Name: Evan Gill Procedure Date: 03/13/2025 8:30 AM Date of : 1955 Admit Type: Outpatient Age: 69 Room: [place] [address] Gender: Female Note Status: Finalized Attending MD: Laisha Singer MD, [id number] Procedure: Colonoscopy Indications: Surveillance: Personal history of piecemeal removal of adenoma on last colonoscopy 6 months ago, High risk colon cancer surveillance: Personal history of rectal cancer Providers: Laisha Singer MD Patient Profile: Last Colonoscopy: 2024. Referring Physician: Laisha Singer MD (Referring MD) [...] satisfactory condition to undergo the procedure. After I obtained informed consent, the scope was passed under direct vision. Throughout the procedure, the patient's blood pressure, pulse, and oxygen saturations were monitored continuously. The Colonoscope was introduced through the anus and advanced to the cecum, identified by appendiceal orifice and ileocecal valve. The colonoscopy was performed without difficulty. The patient tolerated the procedure well. The quality of the bowel preparation was adequate. The ileocecal valve, appendiceal orifice, and rectum were photographed. Scope Withdrawal Time: 0 hours 14 minutes 42 seconds Moderate Sedation: MAC anesthesia was administered by the anesthesia team. Total Procedure Duration: 0 hours 23 minutes 30 seconds Findings: A post-surgical anastomosis was found on digital exam. This was found to be patent. Pertinent negatives include normal sphincter tone. A tattoo was seen in the ascending colon. The tattoo site appeared normal. There was no evidence of residual polyp tissue. There was evidence of a prior end-to-end colo-rectal anastomosis in the distal rectum. This was patent and was characterized by healthy appearing mucosa. The anastomosis was traversed. Non-bleeding internal hemorrhoids were found during endoscopy. The hemorrhoids were mild. The exam was otherwise without abnormality. Impression: - Patent post-surgical anastomosis found on digital exam. - A tattoo was seen in the ascending colon. The tattoo site appeared normal. There was no evidence of residual polyp tissue. - Patent end-to-end colo-rectal anastomosis, characterized by healthy appearing mucosa. - Non-bleeding internal hemorrhoids. - The examination was otherwise normal. - No specimens collected. Recommendation: - Resume previous diet. - Continue present medications. - Repeat colonoscopy in 3 years for surveillance. - Return to my office as previously scheduled. - Patient has a contact number available for emergencies. The signs and symptoms of potential delayed complications were discussed with the patient. Return to normal activities tomorrow. Written discharge instructions were provided to the patient. Procedure Code(s): --- Professional --- G0105, Colorectal cancer screening; colonoscopy on individual at high risk Diagnosis Code(s): --- Professional --- Z98.0, Intestinal bypass and anastomosis status Z12.11, Encounter for screening for malignant neoplasm of colon Z85.048, Personal history of other malignant neoplasm of rectum, rectosigmoid junction, and anus K64.8, Other hemorrhoids Z09, Encounter for follow-up examination after completed treatment for conditions other than malignant neoplasm Z86.0101, Personal history of adenomatous and serrated colon polyps CPT copyright 2020 [employer]. All rights reserved. The codes documented in this report are preliminary and upon vegetable trimmer review may be revised to meet current compliance requirements. Attending Participation: I was present and participated during the entire procedure, including non-guzman portions. Scope In: 8:40:28 AM Scope Out: 9:03:58 AM MD Laisha Quinteros MD 03/13/2025 9:10:44 AM This report has been signed electronically by Laisha Singer MD Number of Addenda: 0 Note Initiated On: 03/13/2025 8:30 AM Estimated Blood Loss: Estimated blood loss: none.[facility] CenterCol[id number] Patient Name: Evan Gill Procedure Date: 03/13/2025 8:30 AM Date of : 1955 Admit Type: Outpatient Age: 69 Room: [place] [address] Gender: Female Note Status: Finalized Attending MD: Laisha Singer MD, [id number] Procedure: Colonoscopy Indications: Surveillance: Personal history of piecemeal removal of adenoma on last colonoscopy 6 months ago, High risk colon cancer surveillance: Personal history of rectal cancer Providers: Laisha Singer MD Patient Profile: Last Colonoscopy: 2024. Referring Physician: Laisha Singer MD (Referring MD) [...] satisfactory condition to undergo the procedure. After I obtained informed consent, the scope was passed under direct vision. Throughout the procedure, the patient's blood pressure, pulse, and oxygen saturations were monitored continuously. The Colonoscope was introduced through the anus and advanced to the cecum, identified by appendiceal orifice and ileocecal valve. The colonoscopy was performed without difficulty. The patient tolerated the procedure well. The quality of the bowel preparation was adequate. The ileocecal valve, appendiceal orifice, and rectum were photographed. Scope Withdrawal Time: 0 hours 14 minutes 42 seconds Moderate Sedation: MAC anesthesia was administered by the anesthesia team. Total Procedure Duration: 0 hours 23 minutes 30 seconds Findings: A post-surgical anastomosis was found on digital exam. This was found to be patent. Pertinent negatives include normal sphincter tone. A tattoo was seen in the ascending colon. The tattoo site appeared normal. There was no evidence of residual polyp tissue. There was evidence of a prior end-to-end colo-rectal anastomosis in the distal rectum. This was patent and was characterized by healthy appearing mucosa. The anastomosis was traversed. Non-bleeding internal hemorrhoids were found during endoscopy. The hemorrhoids were mild. The exam was otherwise without abnormality. Impression: - Patent post-surgical anastomosis found on digital exam. - A tattoo was seen in the ascending colon. The tattoo site appeared normal. There was no evidence of residual polyp tissue. - Patent end-to-end colo-rectal anastomosis, characterized by healthy appearing mucosa. - Non-bleeding internal hemorrhoids. - The examination was otherwise normal. - No specimens collected. Recommendation: - Resume previous diet. - Continue present medications. - Repeat colonoscopy in 3 years for surveillance. - Return to my office as previously scheduled. - Patient has a contact number available for emergencies. The signs and symptoms of potential delayed complications were discussed with the patient. Return to normal activities tomorrow. Written discharge instructions were provided to the patient. Procedure Code(s): --- Professional --- G0105, Colorectal cancer screening; colonoscopy on i (more content not included)...PROVATIONWadsworth-Rittman HospitalRadiology Study observation (narrative)[facility] PHYSICALon [id number] PHYSICALHNO ID: [id number] Author: LAISHA SINGER MD Service: Colorectal Author Type: Resident Type: H&P Filed: 03/13/2025 07:49 Note Text: Attestation signed by Laisha Singer MD at 03/13/2025 7:49 AM [employer] STAFF PHYSICIAN NOTE OF PERSONAL INVOLVEMENT IN CARE I have reviewed the history and physical exam obtained and documented by the resident and I personally participated in the guzman components. I have confirmed and edited as necessary, the PFSH and ROS obtained by others. I have discussed the case and management of the patient's care. CV: RRR Pulm: no increased respiratory effort Laisha Singer MD Date of Service: March 13, 2025 ENDOSCOPY HISTORY AND PHYSICAL EXAM Evan Demetrius Jairo [id number] Subjective HPI: This is a 69 year old female with a history of rectal cancer s/p STACY, LAR with DLI 08/2023 and reversal 11/2023 who presents for colonoscopy for surveillance. Last colonoscopy was 09/2024. A 2.5cm ascending colon polyp was removed. No family history of colon and rectal cancer No family history of inflammatory bowel disease PAST ANESTHESIA HISTORY: No history of adverse event PAST MEDICAL HISTORY Diagnosis Date Constipation Diverticulosis Malignant melanoma (HCC) Rectal cancer (HCC) PAST SURGICAL HISTORY Procedure Laterality Date COLONOSCOPY PAST SURGICAL HISTORY OF Right knee surgery PAST SURGICAL HISTORY OF skin lesion removed melanoma REMOVAL GALLBLADDER Prior to Admission medications as of 03/13/25 0739 Medication Sig Last Dose Taking LEXAPRO 10 mg tablet 03/12/2025 Yes meloxicam (MOBIC) 15 mg tablet Take 15 mg by mouth once daily. 03/12/2025 Yes ondansetron orally disintegrating (ZOFRAN ODT) 8 mg disintegrating tablet Take 1 tablet by mouth every 8 hours as needed for nausea/vomiting. 03/12/2025 Yes omeprazole (PRILOSEC) 40 mg capsule Take 40 mg by mouth once daily. 03/12/2025 Yes oxybutynin ER (DITROPAN XL) 15 mg 24 hr Extended Rel Tab Take 15 mg by mouth. 03/12/2025 Yes aspirin, enteric coated (ASPIRIN, ENTERIC COATED) 81 mg EC tablet Take 81 mg by mouth once daily. 03/12/2025 Yes INV SEMAGLUTIDE 0.25 MG/0.5 ML INJECTION (IRB 24-915) Inject 0.25 mg subcutaneously one time a week. For Investigational Drug Use Only. PI: Ruthann Cisneros MD. ALLERGIES No Known Allergies Objective PHYSICAL EXAM: The remainder of the physical exam is noncontributory. AIRWAY: Patent LUNGS: Clear to auscultation bilaterally CARDIAC: Regular rate and rhythm, no murmur Assessment/Plan ASA Class: Active Problems: * No active hospital problems. * Resolved Problems: * No resolved hospital problems. * Medication and Non-Pharmacologic VTE Prophylaxis/Anticoagulants VTE Prophylaxis: Not indicated for current procedure Provisional Diagnosis/Treatment Plan: COLONOSCOPY: surveillance with possible biopsy under MAC sedation Consent has been signed Bonny Duque MD 03/13/2025 7:46 AMNMcL[facility] CALCIUMon [id number] [Mass/Vol]9.1 mg/dL8.5 - 10.1 mg/dLNOMetropolitan Saint Louis Psychiatric CenterNo Panel Informationon [id number] HealthcareTBH CREATININEon 58-70-8409Llmrctaale [Mass/Vol]0.71 mg/dL0.55 - 1.02 mg/dLNOMetropolitan Saint Louis Psychiatric CenterGFR/1.73 sq M.predicted CKD-EPI (S/P/Bld) [Vol rate/Area]>60 >=60 mL/min/1.73m 2NResearch Psychiatric CenterTB EGFR-NON AF COLOMBIAN>60>=60 mL/min/1.73m 2 NOMS HealthcareCNOVon [id number] Visit (CORSA) EVAN GILL ([id number]) 1955 F Date Time Provider Department 02/20/25 [...] Review of prior operative (more content not included)...NormalCleveland Clinic Union HospitalCNOVSPon [id number] (SP) Office (HEMAVN) VEAN GILL ([id number]) 1955 F Date Time Provider Department 02/20/25 2:00 PM TAPAN CORONA During your visit today, we recorded the following information about you: Temperature Pulse Respiration Blood pressure 99.4 degrees 67/minute 18/minute 121/78 Weight Height 66.3 kg 1.626 m Tapan Corona MD 02/20/2025 2:27 PM Signed PATIENT NAME: Evan Romo Jaior CLINIC NO.: [id number] ATTENDING PHYSICIAN: Tapan Corona MD DATE OF [...] AST (U/L) Date Value (more content not included)...NormalCleveland Clinic Union Hospital CNTHERAPYon [id number]/PT/Speech Visit (PTAMCF) EVAN GILL ([id number]) 1955 F Date Time Provider Department 02/19/25 1:00 PM CHAPINCITO ANTHONY [facility] Date Time Provider Department [place] 02/19/2025 1:00 PM 135759-BOHXIYHTCHAPINCITO ANTHONY [facility] Reason for Visit: Physical Therapy [503] [...] tablet Take 81 mg by mouth once daily.NormalOhioHealth Arthur [facility] W Auto Differential panel (Bld)on [id number] (Bld) [#/Vol]0.04 10*3/uLNINF [facility]-Rittman HospitalBasophils/100 WBC (Bld)0.7 %[facility]-Rittman HospitalDifferential cell count method Nom (Bld)AutoCleveland ClinicEosinophils (Bld) [#/Vol]0.25 10*3/uL NINFCleveland ClinicEosinophils/100 WBC (Bld)4.1 %[facility]-Rittman HospitalErythrocyte distribution width (RBC) [Ratio]13.5 %11.5 - 15.0 %[facility]-Rittman HospitalHematocrit (Bld) [Volume fraction]34.2 %Low36.0 - 46.0 %[facility]-Rittman HospitalHemoglobin (Bld) [Mass/Vol]11.1 g/dLLow11.5 - 15.5 g/dLWadsworth-Rittman HospitalImmature granulocytes (Bld) [#/Vol]0.04 10*3/uLNINFWadsworth-Rittman HospitalImmature granulocytes/100 WBC (Bld) 0.7 %[facility] HospitalInterpretation and review of laboratory resultsAbnormal [facility]ittman HospitalLymphocytes (Bld) [#/Vol]1.52 10*3/[facility] Lymphocytes/100 WBC (Bld)25.1 %[facility] HospitalH (RBC) [Entitic mass]29 pg26.0 - 34.0 pgCSelect Medical OhioHealth Rehabilitation Hospital - DublinHC (RBC) [Mass/Vol]32.5 g/dL30.5 - 36.0 g/dLSheltering Arms HospitalV (RBC) [Entitic vol]89.3 fL80.0 - 100.0 fLCOhioHealth Marion General HospitalMonocytes (Bld) [#/Vol]0.51 10*3/uLNINFWadsworth-Rittman HospitalMonocytes/100 WBC (Bld)8.4 % [facility]itt[facility] HospitalNeutrophils (Bld) [#/Vol]3.69 10*3/[facility] Neutrophils/100 WBC (Bld)61 %[facility] HospitalNucleated RBC (Bld) [#/Vol]NINF [facility] HospitalNucleated RBC/100 WBC (Bld) [Ratio]0 %/100 WBCWadsworth-Rittman Hospital Platelet mean volume (Bld) [Entitic vol]8.5 fLLow9.0 - 12.7 fLCOhioHealth Marion General Hospital Platelets (Bld) [#/Vol]266 10*3/[facility] HospitalRBC (Bld) [#/Vol]3.83 10*6/uL Low3.90 - 5.20 m/[facility] HospitalWBC (Bld) [#/Vol]6.05 10*3/uLCleveland Clinic Union Hospital ClinicBasophils (Bld) [#/Vol]0.04 10*3/uLNormal<0.11CMercy Health Anderson Hospital on above:Order Comment: Specimen Type: BLOOD SPECIMEN Ordering Facility: [facility] Address: [address] [place], [place] [address]Performed By: #### 36774-0 #### [facility] CLIA [id number] [address] [place], [place] [address]Dcawwbxfy/100 WBC (Bld)0.7 %NormalCleveland Clinic Union Hospital Comment on above:Order Comment: Specimen Type: BLOOD SPECIMEN Ordering Facility: [facility] Address: [address] [place], [place] [address]Performed By: #### 48844-5 #### [facility] CLIA [id number] [address] [place] [address] 55947Drmtfelmonih cell count method Nom (Bld)AutoNormalClevelNovant Health/NHRMCComsinai-grace hospital on above:Order Comment: Specimen Type: BLOOD SPECIMEN Ordering Facility: [facility] Address: [address] [place], [place] [address]Performed By: #### 17307-8 #### [facility] CLIA [id number] [address] [place] [address] 09000Slqahhiiyxe (Bld) [#/Vol]0.25 10*3/uLNormal<0.46C[facility] Clinic Union HospitalComsinai-grace hospital on above:Order Comment: Specimen Type: BLOOD SPECIMEN Ordering Facility: [facility] Address: [address] [place], [place] [address]Performed By: #### 62753-6 #### [facility] CLIA [id number] [address] [place] [address] 84011Xwvfztxayfs/100 WBC (Bld)4.1 %NormalCleveland Clinic Union Hospital Comment on above:Order Comment: Specimen Type: BLOOD SPECIMEN Ordering Facility: [facility] Address: [address] [place], [place] [address]Performed By: #### 60788-2 #### [facility] CLIA [id number] [address] [place] [address] 95560Mmkewegurim distribution width (RBC) [Ratio]13.5 %Normal 11.5-15.0[facility] on above:Order Comment: Specimen Type: BLOOD SPECIMEN Ordering Facility: [facility] Address: [address] [place], [place] [address]Performed By: #### 07928-4 #### [facility] CLIA [id number] [address] [place] [address] 75789Xrlvzzjmtf (Bld) [Volume fraction]34.2 %Low36.0-46.0[facility] on above:Order Comment: Specimen Type: BLOOD SPECIMEN Ordering Facility: [facility] Address: [address] [place], [place] [address]Performed By: #### 33915-3 #### [facility] CLIA [id number] [address] [place] [address] 38248Kgppqttugw (Bld) [Mass/Vol]11.1 g/dLLow11.5-15.5CMercy Health Anderson Hospital on above:Order Comment: Specimen Type: BLOOD SPECIMEN Ordering Facility: [facility] Address: [address] [place], [place] [address]Performed By: #### 18190-6 #### [facility] CLIA [id number] [address] [place] [address] 71156Htsqxmgt granulocytes (Bld) [#/Vol]0.04 10*3/uLNormal<0.10 [facility] on above:Order Comment: Specimen Type: BLOOD SPECIMEN Ordering Facility: [facility] Address: [address] [place], [place] [address]Performed By: #### 66743-2 #### [facility] CLIA [id number] [address] [place] [address] 29270Auyqvbfy granulocytes/100 WBC (Bld)0.7 %NormalWVUMedicine Harrison Community Hospital on above:Order Comment: Specimen Type: BLOOD SPECIMEN Ordering Facility: [facility] Address: [address] [place], [place] [address]Performed By: #### 84044-6 #### [facility] CLIA [id number] [address] [place], [place] [address]Geadsxkusiu (Bld) [#/Vol]1.52 10*3/uLNormal1.00-4.00[facility] on above:Order Comment: Specimen Type: BLOOD SPECIMEN Ordering Facility: [facility] Address: [address] [place], [place] [address]Performed By: #### 43098-1 #### [facility] CLIA [id number] [address] [place], [place] [address]Iytnnabtiof/100 WBC (Bld)25.1 %NormalWVUMedicine Harrison Community Hospital on above:Order Comment: Specimen Type: BLOOD SPECIMEN Ordering Facility: [facility] Address: [address] [place], [place] [address]Performed By: #### 14536-9 #### [facility] CLIA [id number] [address] [place] [address] 80064HWG (RBC) [Entitic mass]29.0 wgPoeeij25.0-34.0[facility] on above:Order Comment: Specimen Type: BLOOD SPECIMEN Ordering Facility: [facility] Address: [address] [place], [place] [address]Performed By: #### 30614-4 #### [facility] CLIA [id number] [address] [place] [address] 43222ZSNZ (RBC) [Mass/Vol]32.5 g/oALoulqe41.5-36.0[facility] on above:Order Comment: Specimen Type: BLOOD SPECIMEN Ordering Facility: [facility] Address: [address] [place], [place] [address]Performed By: #### 60609-7 #### [facility] CLIA [id number] [address] [place] [address] 89909UCL (RBC) [Entitic vol]89.3 nLJggnya66.0-100.0[facility] on above:Order Comment: Specimen Type: BLOOD SPECIMEN Ordering Facility: [facility] Address: [address] [place], [place] [address]Performed By: #### 60981-7 #### [facility] CLIA [id number] [address] [place] [address] 71462Ckkvfsiel (Bld) [#/Vol]0.51 10*3/uLNormal<0.87[facility] on above:Order Comment: Specimen Type: BLOOD SPECIMEN Ordering Facility: [facility] Address: [address] [place], [place] [address]Performed By: #### 72761-5 #### [facility] CLIA [id number] [address] [place] [address] 41183Vcsrxuecd/100 WBC (Bld)8.4 %NormalCleveland Clinic Union Hospital Comment on above:Order Comment: Specimen Type: BLOOD SPECIMEN Ordering Facility: [facility] Address: [address] [place], [place] [address]Performed By: #### 22093-1 #### [facility] CLIA [id number] [address] [place] [address] 90731Jlyrhgcsoef (Bld) [#/Vol]3.69 10*3/uLNormal1.45-7.50[facility] on above:Order Comment: Specimen Type: BLOOD SPECIMEN Ordering Facility: [facility] Address: [address] [place], [place] [address]Performed By: #### 31276-0 #### [facility] CLIA [id number] [address] [place], [place] [address]Cgngjibuuaj/100 WBC (Bld)61.0 %NormalWVUMedicine Harrison Community Hospital on above:Order Comment: Specimen Type: BLOOD SPECIMEN Ordering Facility: [facility] Address: [address] [place], [place] [address]Performed By: #### 90071-7 #### [facility] CLIA [id number] [address] [place], [place] [address]Ljwphotgt RBC (Bld) [#/Vol]10*3/uLNormal<0.01[facility] on above:Order Comment: Specimen Type: BLOOD SPECIMEN Ordering Facility: [facility] Address: [address] [place], [place] [address]Performed By: #### 04227-5 #### [facility] CLIA [id number] [address] [place] [address] 91790Erxirkaim RBC/100 WBC (Bld) [Ratio]0.0 /100 WBCNormalCMercy Health Anderson Hospital on above:Order Comment: Specimen Type: BLOOD SPECIMEN Ordering Facility: [facility] Address: [address] [place], [place] [address]Performed By: #### 89126-0 #### [facility] CLIA [id number] [address] [place] [address] 96737Whwvzrcl mean volume (Bld) [Entitic vol]8.5 fLLow9.0-12.7 [facility] on above:Order Comment: Specimen Type: BLOOD SPECIMEN Ordering Facility: [facility] Address: [address] [place], [place] [address]Performed By: #### 50399-9 #### [facility] CLIA [id number] [address] [place] [address] 08493Iczuutbag (Bld) [#/Vol]266 10*3/cBXohpqb668-403DfaetctjcWVUMedicine Harrison Community Hospital on above:Order Comment: Specimen Type: BLOOD SPECIMEN Ordering Facility: [facility] Address: [address] [place], [place] [address]Performed By: #### 27571-6 #### [facility] CLIA [id number] [address] [place] [address] 21120NMT (Bld) [#/Vol]3.83 10*6/uLLow3.90-5.20[facility] on above:Order Comment: Specimen Type: BLOOD SPECIMEN Ordering Facility: [facility] Address: [address] [place], [place] [address]Jbkqdlsdh By: #### 38666-4 #### [facility] CLIA [id number] [address] [place] [address] 09748MVV (Bld) [#/Vol]6.05 10*3/uLNormal3.70-11.00[facility] on above:Order Comment: Specimen Type: BLOOD SPECIMEN Ordering Facility: [facility] Address: [address] [place] [address] 533[address]Xluuueeuk By: #### 52352-5 #### [facility] CLIA [id number] [address] [place], [place] [address]BJE SerPl-mCncon 64-07-9727Bwsppvpgnkhaauqr Ag [Mass/Vol]4.1 ng/mLHigh<=2.9CMercy Health Anderson Hospital on above:Order Comment: Specimen Type: BLOOD SPECIMEN Ordering Facility: [facility] Address: [address] [place] [address] 16634Jfglgf Comment: Carcinoembryonic antigen test is used as an aid in monitoring response to treatmentor recurrence in patients with established colorectal, breast, lung, prostatic, pancreatic, and ovarian carcinomas. Clinical correlation is required. The Carcinoembryonic antigen test was performed using the Tony Gradient X Unicel DXI paramagnetic particle chemiluminescent immunoassay method. Results obtained with different assay methods or kits cannot be used interchangeably.Performed By: #### 22982-5 #### [facility] IA [id number] [address] [place] [address] 90506TPTGgc 16-89-0848HIHGRtdybcftu (HEMTSA) EVAN GILL ([id number]) 1955 F Date Time Provider Department 02/10/25 TAPAN CORONADiane During your visit today, we recorded the following information about you: Jen Watson RN 02/10/2025 1:[address] order [...] [681] Primary Visit Diagnosis:Rectal cancer (HCC) [C20] Order(s):[facility] SEND OUT TST 1 [SQMISC1] Order #: [id number] FUTURE Prescriptions as of 02/11/2025 - [place] [...] 11/06/2023 Encounter Status:Closed by CAMILLA CORTÉS on 02/11/25[facility] ABD/PEL W IVCONon [id number] ABD/PEL W IVCON* * *Final Report* * * DATE OF EXAM: Feb 10 2025 1:51PM [facility] 0530 - CT ABD/PEL W IVCON / [...] any questions regarding this interpretation, please call [phone]. If you are unable to reach us at the number above, please feel free to contact [facility] eRadiology at [phone]. [id number]_IDCSIACNNormalCleveland Clinic Union HospitalCT CHEST W IVCONon [id number] CHEST W IVCON* * *Final Report* * * DATE OF EXAM: Feb 10 2025 1:51PM [facility] 0539 - CT CHEST W IVCON / [...] any questions regarding this interpretation, please call [phone]. If you are unable to reach us at the number above, please feel free to contact [facility] eRadiology at [phone]. [id number]_IDCSIACNNormalCleveland Clinic Union HospitalComprehenve metabolic 2000 panelOrdered By: Caleb Connolly on 87-70-2679Kuqylwm [Mass/Vol]4 g/dL3.9 - 4.9 g/dLOreland ClinicALP [Catalytic activity/Vol]103 U/L34 - 123 U/LCleveland ClinicALT [Catalytic activity/Vol]28 U/L7 - 38 U/LCleveland ClinicAnion gap [Moles/Vol]9 mmol/L8 - 15 mmol/LCleveland ClinicAST [Catalytic activity/Vol]16 U/L13 - 35 U/LCleveland ClinicBilirubin [Mass/Vol]0.3 mg/dL0.2 - 1.3 mg/dL Oreland ClinicCalcium [Mass/Vol]9 mg/dL8.5 - 10.2 mg/dLOreland Clinic Chloride [Moles/Vol]107 mmol/L98 - 107 mmol/LCleveland ClinicCO2 [Moles/Vol]25 mmol/L22 - 30 mmol/LCleveland ClinicCreatinine [Mass/Vol]0.67 mg/dL0.58 - 0.96 mg/dLWadsworth-Rittman HospitalGFR/1.73 sq M.predicted among non-blacks MDRD (S/P/Bld) [Vol rate/Area]94 mL/min/{1.73_m2}- PINFCleveland Perham Health HospitalComment on above: Estimated Glomerular Filtration Rate (eGFR) is calculated using the 2020 CKD-EPI creatinine equation. This equation utilizes serum creatinine, sex, and age as parameters. The creatinine assay has traceable calibration to isotope dilution- mass spectrometry. Refer to KDIGO guidelines for clinical interpretation. In patients with unstable renal function, e.g. those with acute kidney injury, the eGFRmay not accurately reflect actual GFR.Glucose [Mass/Vol]103 mg/xYNiql15 - 99 mg/dLWadsworth-Rittman HospitalComment on above:The Scottish Diabetes Association (ADA) provides guidance for cutoff values for fasting glucose andrandom glucose. The ADA defines fasting as no caloric intake for at least 8 hours. Fasting plasma gl ucose results between 100 to 125 mg/dL indicate [...] Standards of Medical Care in Diabetes 2016, Scottish Diabetes Association. Diabetes Care. 2016.39(Suppl 1). Interpretation and review of laboratory resultsAbnormalCleveland ClinicPotassium [Moles/Vol]4.1 mmol/L3.7 - 5.1 mmol/LCohiohealth hardin memorial hospital ClinicProtein [Mass/Vol]6.6 g/dL 6.3 - 8.0 g/dLOreland ClinicSodium [Moles/Vol]141 mmol/L136 - 144 mmol/L [facility]ittman HospitalUrea nitrogen [Mass/Vol]14 mg/dL7 - 21 mg/dLOhioHealth Doctors Hospitalprehensive metabolic 2000 panelon 29-24-9878Hivaafz [Mass/Vol]4.0 g/dLNormal3.9-4.9CMercy Health Anderson Hospital on above:Order Comment: Specimen Type: BLOOD SPECIMEN Ordering Facility: [facility] Address: [address] [place], [place] [address]Performed By: #### 03612-1 #### [facility] CLIA [id number] [address] [place] [address] 82012RIV [Catalytic activity/Vol]103 U/TGltdum99-228BhmwgpejfWVUMedicine Harrison Community Hospital on above:Order Comment: Specimen Type: BLOOD SPECIMEN Ordering Facility: [facility] Address: [address] [place], [place] [address]Performed By: #### 80900-3 #### [facility] CLIA [id number] [address] [place] [address] 73600SJV [Catalytic activity/Vol]28 U/LNormal7-38[facility] on above:Order Comment: Specimen Type: BLOOD SPECIMEN Ordering Facility: [facility] Address: [address] [place], [place] [address]Performed By: #### 55138-5 #### [facility] CLIA [id number] [address] [place], [place] [address]Ueofv gap [Moles/Vol]9 mmol/LNormal8-15[facility] on above:Order Comment: Specimen Type: BLOOD SPECIMEN Ordering Facility: [facility] Address: [address] [place], [place] [address]Performed By: #### 26987-3 #### [facility] CLIA [id number] [address] [place], [place] [address]OJC [Catalytic activity/Vol]16 U/NXrwcau04-71ZsuphktxaWVUMedicine Harrison Community Hospital on above:Order Comment: Specimen Type: BLOOD SPECIMEN Ordering Facility: [facility] Address: [address] [place], [place] [address]Performed By: #### 97562-2 #### [facility] CLIA [id number] [address] [place], [place] [address]Vyipcrlyj [Mass/Vol]0.3 mg/dLNormal0.2-1.3CMercy Health Anderson Hospital on above:Order Comment: Specimen Type: BLOOD SPECIMEN Ordering Facility: [facility] Address: [address] [place], [place] [address]Performed By: #### 70943-2 #### [facility] CLIA [id number] [address] [place] [address] 68806Fepfibn [Mass/Vol]9.0 mg/dLNormal8.5-10.2CMercy Health Anderson Hospital on above:Order Comment: Specimen Type: BLOOD SPECIMEN Ordering Facility: [facility] Address: [address] [place], [place] [address]Performed By: #### 48154-6 #### [facility] CLIA [id number] [address] [place], [place] [address]Fkqspnnb [Moles/Vol]107 mmol/AHtqbno72-518PkznimfjjWVUMedicine Harrison Community Hospital on above:Order Comment: Specimen Type: BLOOD SPECIMEN Ordering Facility: [facility] Address: [address] [place], [place] [address]Performed By: #### 61951-0 #### [facility] CLIA [id number] [address] [place], [place] [address]VQ0 [Moles/Vol]25 mmol/KIqtgbs28-15FaqwqgyimCleveland Clinic Union Hospital Comment on above:Order Comment: Specimen Type: BLOOD SPECIMEN Ordering Facility: [facility] Address: [address] [place] [address]Qyflkxguv By: #### 45858-8 #### [facility] CLIA [id number] [address] [place] [address] 35876Nwzoiwnskm [Mass/Vol]0.67 mg/dLNormal0.58-0.96C[facility] Clinic Union HospitalComment on above:Order Comment: Specimen Type: BLOOD SPECIMEN Ordering Facility: [facility] Address: [address] [place] [address] 038[address]Ltirqinom By: #### 84922-0 #### [facility] CLIA [id number] [address] [place] [address] 80179bJDIwu SerPlBld CKD-EPI 024221 mL/min/1.73m???Normal>=60 [facility] Clinic Union HospitalComment on above:Order Comment: Specimen Type: BLOOD SPECIMEN Ordering Facility: [facility] Address: [address] [place] [address] 046[address]Vgkxfd Comment: Estimated Glomerular Filtration Rate (eGFR) is calculated using the 2020 CKD-EPI cre atinine equation. This equation utilizes serum creatinine, sex, and age as parameters. The creatinine assay has traceable calibration to isotope dilution- mass spectrometry. Refer to KDIGO guidelines for clinical interpretation. In patients with unstable renal function, e.g. those with acute kidney injury, the eGFR may not accurately reflect actual GFR.Performed By: #### 46698-3 #### [facility] CLIA [id number] [address] [place] [address] 71358Cvobbkv [Mass/Vol]103 mg/lGIjsx97-98BgiljumitCleveland Clinic Union Hospital Comment on above:Order Comment: Specimen Type: BLOOD SPECIMEN Ordering Facility: [facility] Address: [address] [place] [address] 054[address]Wklahk Comment: The Scottish Diabetes Association (ADA) provides guidance for cutoff [...] Standards of Medical Care in Diabetes 2016, Scottish Diabetes Association. Diabetes Care. 2016.39(Suppl 1).Performed By: #### 30247-2 #### [facility] CLIA [id number] [address] [place], [place] [address]Ajmzdwtrz [Moles/Vol]4.1 mmol/LNormal3.7-5.1CMercy Health Anderson Hospital on above:Order Comment: Specimen Type: BLOOD SPECIMEN Ordering Facility: [facility] Address: [address] [place], [place] [address]Performed By: #### 18954-9 #### [facility] CLIA [id number] [address] [place] [address] 24876Jxkzxpq [Mass/Vol]6.6 g/dLNormal6.3-8.0[facility] on above:Order Comment: Specimen Type: BLOOD SPECIMEN Ordering Facility: [facility] Address: [address] [place], [place] [address]Performed By: #### 98403-9 #### [facility] CLIA [id number] [address] [place] [address] 73256Adcebq [Moles/Vol]141 mmol/XYuvpaj223-088NasgewqplWVUMedicine Harrison Community Hospital on above:Order Comment: Specimen Type: BLOOD SPECIMEN Ordering Facility: [facility] Address: [address] [place], [place] [address]Performed By: #### 15431-9 #### [facility] CLIA [id number] [address] [place] [address] 39901Necv nitrogen [Mass/Vol]14 mg/dLNormal7-21[facility] on above:Order Comment: Specimen Type: BLOOD SPECIMEN Ordering Facility: [facility] Address: [address] [place], [place] [address]Performed By: #### 29512-6 #### [facility] CLIA [id number] [address] [place] [address] 61500OMAG SEND OUT TST 1on 22-92-1973KTQT SCAN TEST RESULTS 1View results in Scanned Documents link when availableTrumbull Memorial Hospital Comment on above:Order Comment: Specimen Type: BLOOD SPECIMENOrdering Facility: [facility] Address:[address] [place] [address] Performed By: #### MISC1 ####[facility] LABCLIA [id number] [address] OF AMERICANON-INTERFACED REF LABSCLIA SEE SCANNED RESULTSREFERRAL LAB 1 (DROP-DOWN)NatThe Bellevue [facility] on above:Order Comment: Specimen Type: BLOOD SPECIMENOrdering Facility: [facility] Address:[address] [place], [place] [address]Performed By: #### MISC1 ####[facility] LABCLIA [id number] [place] [id number] [facility] AMERICAN[facility]-INTERFAC[facility] REF LABSCLIA SEE SCANNED RESULTSTEST 1SignateraNormal [facility] on above:Order Comment: Specimen Type: BLOOD SPECIMENOrdering Facility: [facility] Address:[address] [place], [place] [address]Performed By: #### MISC1 ####[facility] LABCLIA [id number] [address] [address] [facility] RE[facility] LABSCLIA SEE SCANNED [id number] 01-29-2025 [id number] ID: [id number] Author: CHAPINCITO ANTHONY PT Service: ? Author Type: Physical Therapist Type: [id number] Filed: 01/29/2025 12:32 Note Text: [facility] Physical Therapy Plan of Care Certification Patient Name: Evan Gill : 1955 [facility] #: [id number] Date: 01/28/2025 To: Laisha Singer MD From [...] Planned: 6 Planned Treatment Interventions: Therapeutic exercise (12262), Neuromuscular re-education (72804), Manual therapy (47629), Self-senior care management (01577), Patient/Family/Caregiver Education PLAN FOR NEXT VISIT: progress [...] have reviewed the treatment plan for Evan Gill, [facility]# [id number] for the period of 01/28/25 -- 04/23/25, established on 01/28/2025. Signature certifies the need for therapy services.NormalCleveland Clinic Union HospitalCNTHERAPYon [id number]/PT/Speech [facility] EVAN [facility] ([id number]) 1955 F Date Time Provider Department 01/28/25 11:30 AM CHAPINCITO ANTHONY [facility] Date Time Provider Department [place] 01/28/2025 11:30 AM [id number] ANTHONY [facility] Reason for Visit: PT Eval [747] Primary [...] tablet Take 81 mg by mouth once daily.NormalCleveland Clinic Union HospitalCNPNon 01-03-2025 CNPNTelephone ([facility]) EVAN GILL ([id number]) 1955 F Date Time Provider Department 01/03/25 [facility] [facility] During your visit today, we recorded [...] 11/06/2023 Encounter Status:Closed by PRINCESS MCKEON on 01/03/25NormalCDayton Children's Hospital ANORECTAL MANOMETRYon 11-05-2024I have reviewed, verified, and confirmed the results of anorectal manometry, rectal sensation, toneand compliance testing and EMG testing. I agree with the impression as written above. Rodolfo Hernandez MD Pelvic Floor Colon & Rectal Surgery PROVATIONReason for testing: LARS Ileoanal pouch: No Anorectal [...] pelvic floor non-relaxation / dyssynergia. Ale Marie APRN.[facility] ANORECTAL MANOMETRYOrdered By: Rodolfo Hernandez on 53-75-6962[facility] Work Phone: Radiology Study observation (narrative)[facility] Work Phone: CNOVon [phone] Visit (CORSAV) EVAN GILL ([id number]) 1955 F Date Time Provider Department 10/31/24 9:00 AM LAISHA SINGER During your visit today, we recorded the following information about you: Pulse Blood pressure Weight Height 74/minute 138/68 74.7 kg 1.626 m Laisha Singer MD 10/31/2024 2:52 PM Signed COLORECTAL SURGERY October 31, 2024 Evan Gill [...] tattooed. View External Procedures - Colonoscopy [ID [id number]] Pathology: Ascending colon polyp: tubular adenoma Scan [...] Manometry Pelvic floor PT (more content not included)...NormalCleveland Clinic Union HospitalX-ray report Ordered By: Cayden Zamorano on 29-56-7831Anqrd reportSAMARITAN [facility] [address] [place] [address] XRay Report Signed Patient: Evan Gill MR#: [id number] : 1955 Acct:[id number] Age/Sex: 69 / F ADM Date: 5 Loc: [facility] [place]: Type: [facility] Attending Dr: Amanda Chester MD Copies to: [...] 12:05 PM Dictation Location: RADIO-PC-18 Transcribed By: NEWTON 10/18/241204 Dictated By: Cayden Zamorano Jr, DO 10/18/241203 Signed By: 10/18/24 120 [facility] HospitalXR hand RT min 3V*on 28-63-6224ZG hand RT min 3V*[facility] [address] [place] [address] XRay Report Signed Patient: Evan Gill MR#: [id number] 89 : 1955 Acct:[id number] Age/Sex: 69 / F ADM Date: 10/18/24 Loc: [facility] Room: Type: [facility] Attending Dr: Amanda Chester MD Copies to: [...] 12:05 PM Dictation Location: RADIO-PC-18 Transcribed By: NEWTON 10/18/241204 Dictated By: Cayden Zamorano Jr, DO 10/18/244 Signed By: 10/18/24 [facility] Physician GroupCNOVon 24-32-8703BDXRJkusgs Visit (RADTSA) EVAN GILL ([id number]) 1955 F Date Time Provider Department 10/09/24 [...] for nausea/vomiting. omeprazole (PRILOSEC) (more content not included)...NormalWadsworth-Rittman Hospital ClevelandX-ray reportOrdered By: Davie Garcia on 42-84-2656Lnvki reportFIROUR LADY OF MER[facility] [address] [place] [address] XRay Report Signed Patient: Evan Gill MR#: [id number] : 1955 Acct:[id number] Age/Sex: 69 / F ADM Date: 5 Loc: [facility] Room: Type: [facility] Attending Dr: Amanda Chester MD Copies to: [...] Davie Garcia M.D.09/27/2024 4:53 PM Dictation Location: [place] [address] Transcribed By: [facility] 09/27/241652 Dictated By: Davie Garcia MD 09/27/241650 Signed By: 09/27/241652 [facility] Work Phone: XR hand RT min 3V*on 48-99-3878HQ hand RT min 3V* [facility] [address] [place] [address] XRay Report Signed Patient: Evan Gill MR#: [id number] 89 : 1955 Acct:[id number] Age/Sex: 69 / F ADM Date: 09/27/24 Loc: [facility] Room: Type: [facility] Attending Dr: Amanda Chester MD Copies to: [...] Davie Garcia M.D.09/27/2024 4:53 PM Dictation Location: [place] [address] Transcribed By: [facility] 09/27/241652 Dictated By: Davie Garcia MD 09/27/241650 Signed By: 09/27/[address] [place] [address] Physician GroupLon 09-18-2024L Specimen: [id number] Received: 09/18/24 Status: JESSICA Pat Num: [id number] Spec Type: Surgical Subm Dr: Tomi Greene MD Tissues: A Colon Biopsy (ASCND COL) Procedures: HE/2, Gross/Micro L4 Age/ Patient Sex Location Account Attending Physician Evan Gill 69/F [id number] Tomi Greene MD SPEC NUM: [id number] RECD: 09/18/24 STATUS: JESSICA PAT NUM: [id number] PERLA: 09/18/24- SUBM DR: Tomi Greene MD ENTERED: 09/18/24-[facility] DR: CANDELARIA TYPE: Surgical DEPT: S ENTERED BY: [id number] RECV BY: [id number] ORDERED: HE/2, Gross/Micro L4 ORDERED: HE/2, Gross/Micro [...] with the vegetative material routine. (1, ns, [id number] A) JG Microscopic Description Microscopic examination is performed. CPT Codes 07477 Specimen: [id number] Received: 09/18/24 Status: JESSICA Reganradha Num: [id number] Spec Type: Surgical Subm Dr: Tomi Greene MD Tissues: A Colon Biopsy (ASCND COL) Procedures: Ramakrishna BANKS/Quentin L4 Patient: Evan Gill [id number] (Continued) Signed (signature on file) Jed Vang MD 09/19/24 0948Normal [facility] Physician GroupCNOVSPon 52-43-8917TJTPFGRfoma (SP) Office (HEMAVN) EVAN GILL ([id number]) 1955 F Date Time Provider Department 09/03/24 1:45 PM TAPAN CORONA During your visit today, we recorded the following information about you: Temperature Pulse Respiration Blood pressure 97.2 degrees 64/minute 18/minute 121/74 Weight Height 72.5 kg 1.626 m Tapan Corona MD 09/03/2024 2:15 PM Signed PATIENT NAME: Evan Gill CLINIC NO.: [id number] ATTENDING PHYSICIAN: Tapan Corona MD DATE OF [...] Ref Range Status 08/19/2024 (more content not included)...NormalCleveland Clinic Union HospitalCNPNon 02-44-9430SICCDvalexttj (HEMAVN) EVAN GILL ([id number]) 1955 F Date Time Provider Department 08/27/24 [...] (HCC) [K56.609] 08/31/2023 09/04/2023 Ileostomy bag changed ([facility]) [Z43.2] 08/31/2023 Partial small bowel obstruction (HCC) [K56.600] 11/06/2023 Encounter Status:Closed by GAGANDEEP WARD on 08/27/24NoUniversity Hospitals Ahuja Medical Centerobic Cultureon 30-78-6166Oiarzjx CultureComment Deep Wound Cx of R Long Finger 1 ORGANISM: Methicillin [...] >2 Penicillin R >2 Tetracycline S <4 Trimethoprim/Sulfamethoxazole R >2 Vancomycin S 1 S = [...] RESISTANT TO ALL B-LACTAM DRUGS. PERFORMED BY: [place] [address] PATHOLOGIST [employer] SEC[employer]ITY ARCHITECT NICOLE StaffordHca Florida Kend[facility] Hospital Physician GroupComment on above: Performed By: #### CUBLD #### [place] [address] USAAerobic CultureComment Deep Wound Cx of R Long Finger 2 ORGANISM: Methicillin [...] >2 Penicillin R >2 Tetracycline S <4 Trimethoprim/Sulfamethoxazole R >2 Vancomycin S 1 S = [...] RESISTANT TO ALL B-LACTAM DRUGS. PERFORMED BY: [place] [address] PATHOLOGIST [employer]ITY ARCHITECT NICOLE SOW M.D.[facility] Physician GroupComment on above: Performed By: #### CUBLD #### [place] [address] USAAnaerobic cultureOrdered By: Amanda Chester on 08-26-2024 Bacteria identified Anaer cx Nom (Unsp spec)Anaerobic cultureDayton Children'S HospitalBacteria identified Anaer cx Nom (Unsp spec)Anaerobic culture [facility]'S HospitalBacteria identified Aer cx Nom (Unsp spec) Ordered By: Amanda Chester on 91-19-7081Ggviglv CultureAbOhioHealth Van Wert HospitalAerobic CultureAbOhioHealth Van Wert Hospital Gram stain microscopyOrdered By: Amanda Chester on 53-04-6473Shlbbyxkjlg observation Gram stain Nom (Unsp spec)Gram stain microscopyDayton Children'S HospitalMicroscopic observation Gram stain Nom (Unsp spec)Gram stain microscopyDayton Children'S HospitalXR finger RT 3rd digiton 05-15-1055PN finger RT 3rd digitChristopher Ville [id number] XRay Report Signed Patient: Evan Gill MR#: [id number] 89 : 1955 Acct:[id number] Age/Sex: 69 / F ADM Date: 08/26/24 Loc: [place] Room: Type: [facility] Attending Dr: Amanda Chester MD Copies to: [...] Cameron Lares M.D.08/26/2024 3:47 PM Dictation Location: [place] [address] Transcribed By: [facility] 08/26/24 1547 Dictated By: Cameron Lares DO 08/26/24 1546 Signed By: 08/26/24 1547[facility] Physician GroupECG 12 lead ECGon 38-62-8380GVT [address] [address] Electrocardiograph Report Signed Patient: Evan Gill MR#: [id number] [birth year] : 1955 Acct:[id number] Age/Sex: 68 / F ADM Date: 08/20/24 Loc: Room: Type: [facility] Attending Dr: Amanda Chester MD Ordering Provider: [...] in Lateral leads Confirmed by RAYSHAWN VELASQUEZ [facility], TROY ([id number]) on 08/20/2024 4:35:52 PM Referred By: Electronically Signed By: TROY TABARES MD [facility] Transcribed By: MUS Signed By Troy Tabares MD, FACC 08/20/[address] [place] [address] Physician GroupBasophils Auto (Bld) [#/Vol]on 91-33-9763Zqfiybnnj (Bld) [#/Vol]Automated basophil count<0.11Day[facility] Children'S HospitalBasophils/100 WBC Auto (Bld)on 64-53-5743Heiedfrzp/100 WBC (Bld) Automated basophil %[facility] Children'S HospitalBlood manual differential comment interpretation narrativeon 64-88-3337Iqftbz differential comment Ankush (Bld) [Interp]Blood manual differential comment interpretation narrative [facility]'S HospitalCBC W Auto Differential panel (Bld)on 96-27-6537Wpadblfmr (Bld) [#/Vol]0.07 10*3/uLNormal<0.11ClevelNovant Health/NHRMCComment on above:Order Comment: Specimen Type: BLOOD SPECIMEN Ordering Facility: [facility] Address: [address] [place], [place] [address]Performed By: #### 19456-0 #### [facility] CLIA [id number] [address] [place] [address] 32642Rakvibrrh/100 WBC (Bld)1.1 %NormalCleveland Clinic Union Hospital Comment on above:Order Comment: Specimen Type: BLOOD SPECIMEN Ordering Facility: [facility] Address: [address] [place], [place] [address]Performed By: #### 80280-6 #### [facility] CLIA [id number] [address] [place] [address] 77200Ubgwdbcfcusj cell count method Nom (Bld)AutoNormalClevelWestern Reserve HospitalvelandComment on above:Order Comment: Specimen Type: BLOOD SPECIMEN Ordering Facility: [facility] Address: [address] [place], [place] [address]Performed By: #### 82806-3 #### [facility] CLIA [id number] [address] [place] [address] 71981Lerfhmvsgsw (Bld) [#/Vol]0.25 10*3/uLNormal<0.46[facility] on above:Order Comment: Specimen Type: BLOOD SPECIMEN Ordering Facility: [facility] Address: [address] [place], [place] [address]Performed By: #### 09254-1 #### [facility] CLIA [id number] [address] [place] [address] 37529Vugsxardglu/100 WBC (Bld)3.8 %NormalCleveland Clinic Union Hospital Comment on above:Order Comment: Specimen Type: BLOOD SPECIMEN Ordering Facility: [facility] Address: [address] [place], [place] [address]Performed By: #### 52039-3 #### [facility] CLIA [id number] [address] [place] [address] 53533Wtbeqfiodlx distribution width (RBC) [Ratio]14.6 %Normal 11.5-15.0[facility] on above:Order Comment: Specimen Type: BLOOD SPECIMEN Ordering Facility: [facility] Address: [address] [place], [place] [address]Performed By: #### 59716-3 #### [facility] CLIA [id number] [address] [place], [place] [address]Zsitvgnjmf (Bld) [Volume fraction]35.4 %Low36.0-46.0[facility] on above:Order Comment: Specimen Type: BLOOD SPECIMEN Ordering Facility: [facility] Address: [address] [place], [place] [address]Performed By: #### 19888-8 #### [facility] CLIA [id number] [address] [place] [address] 91690Xowpsyanko (Bld) [Mass/Vol]11.7 g/iNCuzwwz67.5-15.5CMercy Health [facility] Hospital on above:Order Comment: Specimen Type: BLOOD SPECIMEN Ordering Facility: [facility] Address: [address] [place], [place] [address]Performed By: #### 24575-0 #### [facility] CLIA [id number] [address] [place] [address] 57336Kwevkshr granulocytes (Bld) [#/Vol]10*3/uLNormal<0.10[facility] on above:Order Comment: Specimen Type: BLOOD SPECIMEN Ordering Facility: [facility] Address: [address] [place], [place] [address]Performed By: #### 05401-6 #### [facility] CLIA [id number] [address] [place] [address] 01872Qlwjbkuy granulocytes/100 WBC (Bld)0.3 %NormalWVUMedicine Harrison Community Hospital on above:Order Comment: Specimen Type: BLOOD SPECIMEN Ordering Facility: [facility] Address: [address] [place], [place] [address]Performed By: #### 20833-0 #### [facility] CLIA [id number] [address] [place] [address] 69819Gjguydqfcnn (Bld) [#/Vol]1.71 10*3/uLNormal1.00-4.00[facility] on above:Order Comment: Specimen Type: BLOOD SPECIMEN Ordering Facility: [facility] Address: [address] [place], [place] [address]Performed By: #### 78082-4 #### [facility] CLIA [id number] [address] [place] [address] 33929Bejyjdcmziq/100 WBC (Bld)26.1 %NormalWVUMedicine Harrison Community Hospital on above:Order Comment: Specimen Type: BLOOD SPECIMEN Ordering Facility: [facility] Address: [address] [place], [place] [address]Performed By: #### 14246-0 #### [facility] CLIA [id number] [address] [place] [address] 13657OJP (RBC) [Entitic mass]29.8 xlTibfsq38.0-34.0[facility] on above:Order Comment: Specimen Type: BLOOD SPECIMEN Ordering Facility: [facility] Address: [address] [place], [place] [address]Performed By: #### 75380-3 #### [facility] CLIA [id number] [address] [place] [address] 40623JXTW (RBC) [Mass/Vol]33.1 g/nYTircyo66.5-36.0[facility] on above:Order Comment: Specimen Type: BLOOD SPECIMEN Ordering Facility: [facility] Address: [address] [place], [place] [address]Performed By: #### 37088-5 #### [facility] CLIA [id number] [address] [place] [address] 63064ATT (RBC) [Entitic vol]90.3 nHJlvdle97.0-100.0[facility] on above:Order Comment: Specimen Type: BLOOD SPECIMEN Ordering Facility: [facility] Address: [address] [place], [place] [address]Performed By: #### 00299-2 #### [facility] CLIA [id number] [address] [place] [address] 52785Schbxuifb (Bld) [#/Vol]0.51 10*3/uLNormal<0.87[facility] on above:Order Comment: Specimen Type: BLOOD SPECIMEN Ordering Facility: [facility] Address: [address] [place], [place] [address]Performed By: #### 40338-0 #### [facility] CLIA [id number] [address] [place] [address] 81772Akrlwmxqz/100 WBC (Bld)7.8 %NormalCleveland Clinic Union Hospital Comment on above:Order Comment: Specimen Type: BLOOD SPECIMEN Ordering Facility: [facility] Address: [address] [place], [place] [address]Performed By: #### 32497-9 #### [facility] CLIA [id number] [address] [place] [address] 65983Qbbnhszzbsg (Bld) [#/Vol]4.00 10*3/uLNormal1.45-7.50[facility] on above:Order Comment: Specimen Type: BLOOD SPECIMEN Ordering Facility: [facility] Address: [address] [place], [place] [address]Performed By: #### 68499-7 #### [facility] CLIA [id number] [address] [place] [address] 73408Mdamfplibbt/100 WBC (Bld)60.9 %NormalWVUMedicine Harrison [facility] Hospital on above:Order Comment: Specimen Type: BLOOD SPECIMEN Ordering Facility: [facility] Address: [address] [place], [place] [address]Performed By: #### 33530-0 #### [facility] CLIA [id number] [address] [place] [address] 97167Mhqyldbqm RBC (Bld) [#/Vol]10*3/uLNormal<0.01[facility] on above:Order Comment: Specimen Type: BLOOD SPECIMEN Ordering Facility: [facility] Address: [address] [place], [place] [address]Performed By: #### 64782-9 #### [facility] CLIA [id number] [address] [place] [address] 70848Pqqfewcbd RBC/100 WBC (Bld) [Ratio]0.0 /100 WBCNormalCMercy Health Anderson Hospital on above:Order Comment: Specimen Type: BLOOD SPECIMEN Ordering Facility: [facility] Address: [address] [place], [place] [address]Performed By: #### 44474-6 #### [facility] CLIA [id number] [address] [place], [place] [address]Wefojkfq mean volume (Bld) [Entitic vol]8.2 fLLow9.0-12.7 [facility] on above:Order Comment: Specimen Type: BLOOD SPECIMEN Ordering Facility: [facility] Address: [address] [place], [place] [address]Performed By: #### 63978-4 #### [facility] CLIA [id number] [address] [place], [place] [address]Hpcabxplp (Bld) [#/Vol]282 10*3/gNQcbhmp027-181YeaprxozzWVUMedicine Harrison [facility] Hospital on above:Order Comment: Specimen Type: BLOOD SPECIMEN Ordering Facility: [facility] Address: [address] [place], [place] [address]Performed By: #### 92238-5 #### [facility] CLIA [id number] [address] [place] [address] 54605EAK (Bld) [#/Vol]3.92 10*6/uLNormal3.90-5.20[facility] on above:Order Comment: Specimen Type: BLOOD SPECIMEN Ordering Facility: [facility] Address: [address] [place], [place] [address]Performed By: #### 32824-2 #### [facility] CLIA [id number] [address] [place] [address] 45972DBM (Bld) [#/Vol]6.56 10*3/uLNormal3.70-11.00[facility] on above:Order Comment: Specimen Type: BLOOD SPECIMEN Ordering Facility: [facility] Address: [address] [place], [place] [address]Performed By: #### 55736-5 #### [facility] CLIA [id number] [address] [place] [address] 67102QPO SerPl-mCncon 28-78-9701Xtuyqzlyoobzzgms Ag [Mass/Vol]3.5 ng/mLHigh<=2.9CMercy Health Anderson Hospital on above:Order Comment: Specimen Type: BLOOD SPECIMEN Ordering Facility: [facility] Address: [address] [place], [place] [address]Result Comment: Carcinoembryonic antigen test is used as an aid in monitoring response to treatmentor recurrence in patients with established colorectal, breast, lung, prostatic, pancreatic, and ovarian carcinomas. Clinical correlation is required. The Carcinoembryonic antigen test was performed using the [employer] DXI paramagnetic particle chemiluminescent immunoassay method. Results obtained with different assay methods or kits cannot be used interchangeably.Performed By: #### 24261-1 #### [facility] CLIA [id number] [address] [place] [address] 64392Pmtscsslciojf metabolic 2000 panelon 46-97-4604Gjmases [Mass/Vol]4.1 g/dLNormal3.9-4.9ClevelCleveland Clinic on above:Order Comment: Specimen Type: BLOOD SPECIMEN Ordering Facility: [facility] Address: [address] [place], [place] [address]Performed By: #### 40167-6 #### [facility] CLIA [id number] [address] [place] [address] 37731GTZ [Catalytic activity/Vol]80 U/RIyhgvd54-494WikuspaqcWVUMedicine Harrison [facility] Hospital on above:Order Comment: Specimen Type: BLOOD SPECIMEN Ordering Facility: [facility] Address: [address] [place], [place] [address]Performed By: #### 45470-5 #### [facility] CLIA [id number] [address] [place] [address] 48762GGX [Catalytic activity/Vol]15 U/LNormal7-38[facility] on above:Order Comment: Specimen Type: BLOOD SPECIMEN Ordering Facility: [facility] Address: [address] [place], [place] [address]Performed By: #### 92006-1 #### [facility] CLIA [id number] [address] [place] [address] 33568Rfzwz gap [Moles/Vol]8 mmol/LNormal8-15[facility] on above:Order Comment: Specimen Type: BLOOD SPECIMEN Ordering Facility: [facility] Address: [address] [place], [place] [address]Performed By: #### 03448-8 #### [facility] CLIA [id number] [address] [place], [place] [address]EUK [Catalytic activity/Vol]16 U/HNjqtbq14-79RhbxhwvtjWVUMedicine Harrison Community Hospital on above:Order Comment: Specimen Type: BLOOD SPECIMEN Ordering Facility: [facility] Address: [address] [place], [place] [address]Performed By: #### 98954-4 #### [facility] CLIA [id number] [address] [place] [address] 91380Ehclphgtk [Mass/Vol]0.3 mg/dLNormal0.2-1.3CMercy Health [facility] Hospital on above:Order Comment: Specimen Type: BLOOD SPECIMEN Ordering Facility: [facility] Address: [address] [place], [place] [address]Performed By: #### 96898-6 #### [facility] CLIA [id number] [address] [place] [address] 05235Juszteu [Mass/Vol]9.6 mg/dLNormal8.5-10.2CMercy Health Anderson Hospital on above:Order Comment: Specimen Type: BLOOD SPECIMEN Ordering Facility: [facility] Address: [address] [place], [place] [address]Performed By: #### 97938-9 #### [facility] CLIA [id number] [address] [place], [place] [address]Gzqrimoq [Moles/Vol]106 mmol/CZqsqhc36-415CoeysdqjgWVUMedicine Harrison Community Hospital on above:Order Comment: Specimen Type: BLOOD SPECIMEN Ordering Facility: [facility] Address: [address] [place], [place] [address]Performed By: #### 04967-7 #### [facility] CLIA [id number] [address] [place], [place] [address]NR0 [Moles/Vol]28 mmol/XIaxera39-48WenmdzhzrCleveland Clinic Union Hospital Comment on above:Order Comment: Specimen Type: BLOOD SPECIMEN Ordering Facility: [facility] Address: [address] [place], [place] [address]Performed By: #### 98580-8 #### [facility] CLIA [id number] [address] [place] [address] 71805Ptkdleitum [Mass/Vol]0.74 mg/dLNormal0.58-0.96[facility] Clinic Union HospitalComment on above:Order Comment: Specimen Type: BLOOD SPECIMEN Ordering Facility: [facility] Address: [address] [place], [place] [address]Performed By: #### 95867-8 #### [facility] CLIA [id number] [address] [place] [address] 91644Wutizssakb and Glomerular filtration rate.predicted panel (S/P/Bld)87 mL/min/1.73m???Normal>=60C[facility] Clinic Union HospitalComment on above: Order Comment: Specimen Type: BLOOD SPECIMEN Ordering Facility: [facility] Address: [address] [place], [place] [address]Result Comment: Estimated Glomerular Filtration Rate (eGFR) is calculated using the 2020 CKD-EPI cre atinine equation. This equation utilizes serum creatinine, sex, and age as parameters. The creatinine assay has traceable calibration to isotope dilution- mass spectrometry. Refer to KDIGO guidelines for clinical interpretation. In patients with unstable renal function, e.g. those with acute kidney injury, the eGFR may not accurately reflect actual GFR.Performed By: #### 14887-1 #### [facility] CLIA [id number] [address] [place] [address] 48936Lobfqwt [Mass/Vol]108 mg/sOKajn32-17AyuycobuzCleveland Clinic Union Hospital Comment on above:Order Comment: Specimen Type: BLOOD SPECIMEN [facility] [facility] Address: [address] [place], [place] [address]Result Comment: The [place] Diabetes Association (ADA) provides guidance for cutoff [...] Standards of Medical Care in Diabetes 2016, [place] Diabetes Association. Diabetes Care. 2016.39(Suppl 1).Performed By: #### [id number] #### [facility] CLIA [id number] [address] [place] [address] 25935Khhcbwztx [Moles/Vol]4.2 mmol/LNormal3.7-5.1CMercy [facility] on above:Order Comment: Specimen Type: BLOOD SPECIMEN Ordering Facility: [facility] Address: [address] [place], [place] [address]Performed By: #### [id number] #### [facility] CLIA [id number] [address] [place] [address]6727Gryfewn [Mass/Vol]6.3 g/dLNormal6.3-8.0[facility] on above:Order Comment: Specimen Type: BLOOD SPECIMEN Ordering Facility: [facility] Address: [address] [place], [place] [address]Performed By: #### [id number] #### [facility] CLIA [id number] [address] [place] [address] 93849Qlvucz [Moles/Vol]142 mmol/OMsrhzy103-540YpfgfvqmaWVUMedicine [facility] on above:Order Comment: Specimen Type: BLOOD SPECIMEN Ordering Facility: [facility] Address: [address] [place], [place] [address]Performed By: #### [id number] #### [facility] CLIA [id number] [address] [place] [address] 92945Rfqd nitrogen [Mass/Vol]23 mg/dLHigh7-21[facility] on above:Order Comment: Specimen Type: BLOOD SPECIMEN Ordering Facility: [facility] Address: [place], [place] [address]Fdevljkkr By: #### [id number] #### [facility] CLIA [id number] [address] [place] [address] 83051Mtqzirskune/100 WBC Auto (Bld)on 40-89-1127Dtwgedixxnj/100 WBC (Bld)Automated eosinophil %[facility]S HospitalErythrocyte distribution width Auto (RBC) [Ratio]on 70-40-9896Qdrwavnvfuq distribution width (RBC) [Ratio]Erythrocyte distribution width [Ratio] by Automated count11.5-15.0 [facility] HospitalHematocrit Auto (Bld) [Volume fraction]on 12-21-4341Vbisvqyyav (Bld) [Volume fraction]Hematocrit [Volume Fraction] of Blood by Automated ysqqhNfi77.0-46.0[facility] HospitalHemoglobin [Mass/volume] in Bloodon 14-72-4091Oxeeozfqei (Bld) [Mass/Vol]Hemoglobin [Mass/volume] in Blood11.5-15.5FSumma Health Wadsworth - Rittman Medical CenterLaboratory - Chemistry and Chemistry - challengeon 12-61-5294Nipiiei [Mass/Vol]4.1 g/dL 3.9-4.9[facility] HospitalALP [Catalytic activity/Vol]80 U/L34-123 [facility] HospitalALT [Catalytic activity/Vol]15 U/L7-38[facility] HospitalAST [Catalytic activity/Vol]16 U/H03-01QncsbftveDayton Children'S HospitalBilirubin [Mass/Vol]0.3 mg/dL0.2-1.3FSumma Health Wadsworth - Rittman Medical CenterCalcium [Mass/Vol]9.6 mg/dL8.5-10.2FSumma Health [facility] Chloride [Moles/Vol]106 mmol/R94-535SiggrbkrkDayton Children'S HospitalCO2 [Moles/Vol]28 mmol/C43-95TiadklsidDayton Children'S HospitalCreatinine [Mass/Vol] 0.74 mg/dL0.58-0.96[facility] HospitalGlucose [Mass/Vol]108 mg/dL Mfjb65-54VzfeouktlDayton Children'S HospitalComment on above:The [place] Diabetes Association (ADA) provides guidance for cutoff [...] hyperglycemia or hyperglycemic crisis, random plasma glucose resultsgreater than or equal to 200 mg/dL meet the criteria for diagnosis of diabetes.Reference: Standardsof Medical Care in Diabetes 2016, [place] Diabetes Association. Diabetes Care. 2016.39(Suppl 1). Potassium [Moles/Vol]4.2 mmol/L3.7-5.1FSelect Medical Specialty Hospital - Cantonodium [Moles/Vol]142 mmol/E473-507BqalqyerrDayton Children'S HospitalUrea nitrogen [Mass/Vol]23 mg/dLHigh7-21[facility] HospitalLaboratory - Hematology and Cell countson 50-43-3209Yzzzljidxmm (Bld) [#/Vol]0.25 10*3/uL <0.46Day[facility]S HospitalImmature granulocytes/100 WBC (Bld)0.3 % [facility]S HospitalLeukocytes [#/volume] corrected for nucleated erythrocytes in Blood by Automated counon 82-15-9912XXO corrected for nucl RBC Auto (Bld) [#/Vol]Leukocytes [#/volume] corrected for nucleated erythrocytes in Blood by Automated coun3.70-11.00[facility]'S HospitalLymphocytes Auto (Bld) [#/Vol]on 03-50-3700Rrraiemzeob (Bld) [#/Vol]Lymphocytes [#/volume] in Blood by Automated count1.00-4.00[facility] Lymphocytes/100 WBC Auto (Bld)on 60-00-4057Rjrjtrcnikv/100 WBC (Bld) Lymphocytes/100 leukocytes in Blood by Automated countDayton Children'S HospitalMCH Auto (RBC) [Entitic mass]on 09-40-6797VNB (RBC) [Entitic mass]MCH [Entitic mass] by Automated count26.0-34.0[facility]'S HospitalMCHC Auto (RBC) [Mass/Vol]on 60-66-2919YGKO (RBC) [Mass/Vol]MCHC [Mass/volume] by Automated count30.5-36.0[facility]'S HospitalMCV Auto (RBC) [Entitic vol]on 88-88-1596EMI (RBC) [Entitic vol]MCV [Entitic volume] by Automated count 80.0-100.0[facility]'S HospitalMISC SEND OUT TST 1on 35-46-5656OELN SCAN TEST RESULTS 1View results in Scanned Documents link when availableNormal [facility] on above:Order Comment: Specimen Type: BLOOD SPECIMENOrdering Facility: [facility] Address:[address] [place], [place] [address]Performed By: #### MISC1 ####NON-INTERFACED REF LABSCLIA SEE SCANNED RESULTSAULTMAN [facility] LABCLIA [id number] [address]REFERRAL LAB 1 (DROP-DOWN)[facility] [place] on above:Order Comment: Specimen Type: BLOOD SPECIMENOrdering Facility: [facility] Address:[address] [place], [place] [address]Performed By: #### MISC1 ####NON-INTERFACED REF LABSCLIA SEE SCANNED RESULTSAULTMAN [facility]ANCE [facility] LABCLIA [id number] [address] [place] [address] [place] [facility] MEDICAL CENTERTEST 1SignaterMetroHealth Cleveland [facility] on above:Order Comment: Specimen Type: BLOOD SPECIMENOrdering Facility: [facility] Address:[address] [place], [place] [address]Performed By: #### MISC1 ####NON-INTERFACED REF LABSCLIA SEE SCANNED RESULTSAULTMAN [facility] LABCLIA [id number] [address] [place] [address] [place] AMERICAMonocytes Auto (Bld) [#/Vol]on 06-82-4893Rtzhadhpe (Bld) [#/Vol]Automated blood monocyte count<0.87[facility] Monocytes/100 WBC Auto (Bld)on 13-56-6966Rztshoscn/100 WBC (Bld)Automated monocyte %[facility]'S HospitalNeutrophils Auto (Bld) [#/Vol]on 59-65-3005Hymxatgrqwr (Bld) [#/Vol]Neutrophils [#/volume] in Blood by Automated count1.45-7.50Day[facility]'S HospitalNeutrophils/100 WBC Auto (Bld)on 47-79-9318Nwtynfxwyqv/100 WBC (Bld)Automated neutrophil %[facility]S HospitalNo Panel Informationon 49-26-3567Llboktcyt GFR (CKD-EPI)87 mL/min/1.73m???>=60Day[facility]'S HospitalComment on above:Estimated Glomerular Filtration Rate (eGFR) is calculated using the 2020 CKD-EPI creatinine equation. This equation utilizes serum creatinine, sex, and age as parameters. The creatinine assay has traceable calibration to isotope dilution- mass spectrometry. Refer to KDIGO guidelines for clinical interpretation. In patients with unstable renal function, e.g. those with acute kidney injury, the eGFRmay not accurately reflect actual GFR.Immature Granulocyte # (Auto)<0.03 k/uL<0.10[facility]S HospitalReference Lab NotationWadsworth-Rittman Hospital LabsDayton Children'S HospitalReference Lab Test NameSignaterTriHealth McCullough-Hyde Memorial HospitalReporting Documentation 1View results in Scanned Documents link when availableDayton Children'S HospitalNucleated RBC Auto (Bld) [#/Vol]on 36-16-9630Zfysaksby RBC (Bld) [#/Vol]Nucleated erythrocytes [#/volume] in Blood by Automated count<0.01[facility] Nucleated erythrocytes [Presence] in Blood by Automated counton 08-19-2024 Nucleated RBC Auto Ql (Bld)Nucleated erythrocytes [Presence] in Blood by Automated countDayton Children'S HospitalPlatelet mean volume Auto (Bld) [Entitic vol]on 77-91-7369Kaminbwr mean volume (Bld) [Entitic vol]Platelet mean volume [Entitic volume] in Blood by Automated countLow9.0-12.7FSumma Health Wadsworth - Rittman Medical CenterPlatelets Auto (Bld) [#/Vol]on 55-33-5614Ykzgpyhuz (Bld) [#/Vol] Platelets [#/volume] in Blood by Automated xwqcy632-965RvcedrouoDayton Children'S HospitalProtein [Mass/volume] in Serum or Plasmaon 07-25-2719Qzmclnn [Mass/Vol]Protein [Mass/volume] in Serum or Plasma6.3-8.0[facility]'S HospitalRBC Auto (Bld) [#/Vol]on 63-91-0977TXZ (Bld) [#/Vol]Erythrocytes [#/volume] in Blood by Automated count3.90-5.20[facility] Serum or plasma anion gap determinationon 44-64-0678Tziju gap [Moles/Vol]Serum or plasma anion gap determination8-15[facility] Cholesterol [Mass/volume] in Serum or PlasmaOrdered By: Charles Bazzi on 06-04-2024 Cholesterol [Mass/Vol]Cholesterol [Mass/volume] in Serum or Fcbyov714-102 [facility]S HospitalComment on above:Chol less than 200 mg/dl low riskChol 201-239 mg/dl borderline riskChol 240 mg/dl and greater high risk Cholesterol in HDL [Mass/volume] in Serum or PlasmaOrdered By: Charles Bazzi on 82-94-4320Pnixufbgjjf in HDL [Mass/Vol]Serum or plasma high density lipoprotein (HDL) cholesterol paloopfzsop34-44CiwkwiffrDayton Children'S HospitalComment on above:HDL CHOL ATP-III CLASSIFICATION Cardiovascular RiskHDL > or equal to 60 mg/dL LOWHDL < 40 mg/dL HIGHCholesterol in LDL Calc [Mass/Vol]Ordered By: Charles Bazzi on 36-68-1943Qpkhiqhzklc in LDL [Mass/Vol]Cholesterol in LDL [Mass/volume] in Serum or Plasma by calculation0-100[facility]S HospitalComment on above:LDL ATP III CLASSIFICATIONLDL less than 100 mg/dL OptimalLDL 100-129 mg/dL Near or above rwcplizVTP572-698 mg/dL Borderline highLDL 160-189 mg/dL HighLDL greater than 189 mg/dL Very highCholesterol in VLDL Calc [Mass/Vol] Ordered By: Charles Bazzi on 13-67-3285Dugvkrxldsx in VLDL [Mass/Vol]Cholesterol in VLDL [Mass/volume] in Serum or Plasma by calculationDayton Children'S HospitalLipid Panelon 16-61-8518Oqabctvqkjh [Mass/Vol]171 mg/dHZnfgbk023-988Akg [facility] Hospital Physician GroupComment on above:Result Comment: Chol less than 200 mg/dl low risk Chol 201-239 mg/dl borderline risk Chol 240 mg/dl and greater high riskPerformed By: #### CUBLD #### [facility] [address] [place] [address] USACholesterol in HDL [Mass/Vol]56 mg/qUFgwvgb19-60Tvm [facility] Access Hospital Physician GroupComment on above:Result Comment: HDL CHOL ATP-III CLASSIFICATION Cardiovascular Risk HDL > or equal to 60 mg/dL LOW HDL < 40 mg/dL HIGHPerformed By: #### CUBLD #### [facility] [address] [place] [address] USACholesterol.total/Cholesterol in HDL [Mass ratio]3.1 {ratio}Normal<5.0The [facility]/Main Line HospitalsComment on above:Performed By: #### CUBLD #### [facility] [address] [place] [address] USALDL Cholesterol,Oydbaartzv93 mg/dLNormal0-100The Critical Access Hospital Physician GroupComment on above:Result Comment: LDL ATP III CLASSIFICATION LDL less than 100 mg/dL Optimal LDL 100-129 mg/dL Near or above optimal LDL 130-159 mg/dL Borderline high LDL 160-189 mg/dL High LDL greater than 189 mg/dL Very highPerformed By: #### CUBLD #### [facility] [address] [place] [address] USATriglyceride w/Vbslmo025 mg/dLNormal0-149The Critical Access Hospital Physician GroupComment on above:Result Comment: TRIG ATP III CLASSIFICATION TRIG less than 150 mg/dL Normal TRIG 150-199 mg/dL Borderline high TRIG 200-500 mg/dL High TRIG greater than 500 mg/dL Very high Standard traceable to the Center for Disease Conrtrol and Prevention (CDC) test method.Performed By: #### CUBLD #### [facility] [address] [place] [address] USAVLDL CFSPEHDDZGU97 mg/dLNormAkron Children's Hospitale Critical Access Hospital Physician GroupComment on above:Performed By: #### CUBLD #### [facility] [address] [place] [address] USASerum or plasma total cholesterol/high density lipoprotein (HDL) cholesterol mass ratOrdered By: Charles Bazzi on 06-04-2024 Cholesterol.total/Cholesterol in HDL [Mass ratio]Serum or plasma total cholesterol/high density lipoprotein (HDL) cholesterol mass rat<5.0[facility]'S HospitalThyroid Stimulating Hormoneon 78-68-4915KLW Qn1.94 m[IU]/LNormal0.45-5.33The Critical Access Hospital Physician GroupComment on above:Result Comment: PERFORMED BY: [place] [address] PATHOLOGIST [employer] NICOLE SOW M.D.Performed By: #### CUBLD #### [facility] [address] [place] [id number] USAThyrotropin [Units/volume] in Serum or PlasmaOrdered By: Charles Bazzi on 01-58-0670DMC QnThyrotropin [Units/volume] in Serum or Plasma 0.45-5.33Day[facility]'S HospitalTriglyceride [Mass/volume] in Serum or PlasmaOrdered By: Charles Bazzi on 72-99-3134Dnqjwmyypglf [Mass/Vol]Triglyceride [Mass/volume] in Serum or Plasma0-149Day[facility]'S HospitalComment on above:TRIG ATP III CLASSIFICATIONTRIG less than 150 mg/dL NormalTRIG 150-199 mg/dL Borderline highTRIG 200-500 mg/dL High TRIG greater than 500 mg/dL Very highStandard traceable to the Center for Disease Conrtrol and Prevention (CDC) test method.Aerobic Cultureon 41-24-8719Dhmrzww CultureComment right middle finger culture ORGANISM: Methicillin Resis [...] >2 Penicillin R >2 Tetracycline S <4 Trimethoprim/Sulfamethoxazole R >2 Vancomycin S 1 S = [...] RESISTANT TO ALL B-LACTAM DRUGS. PERFORMED BY: [place] [address] PATHOLOGIST [employer] NICOLE SOW M.D.[facility] Physician GroupComment on above: Performed By: #### CUBLD #### [place] [address] USAAnaerobic cultureOrdered By: Amanda Chester on 05-31-2024 Bacteria identified Anaer cx Nom (Unsp spec)Anaerobic cultureDayton Children'S HospitalBacteria identified Aer cx Nom (Unsp spec)Ordered By: Amanda Chester on 94-05-2512Vixemur CultureAbnormalDayton Children'S HospitalGram stain microscopyOrdered By: Amanda Chester on 45-72-3263Brcdezavubr observation Gram stain Nom (Unsp spec)Gram stain microscopyDayton Children'S HospitalXR hand RT min 3V*on 65-73-6186AY hand RT min 3V*[facility] [address] [place] [id number] XRay Report Signed Patient: Evan Gill MR#: [id number] [birth year] : 1955 Acct:[id number] Age/Sex: 68 / F ADM Date: 05/30/24 [place]: [facility] [place] Room: Type: [facility] Attending Dr: Jorge A Haji DO Copies [...] Cameron Lares M.D.05/30/2024 4:14 PM Dictation Location: [place] [address] Transcribed By: [facility] 05/30/24 1614 Dictated By: Cameron Lares DO 05/30/24 1600 Signed By: 05/30/24 1614[facility] Physician GroupBasophils Auto (Bld) [#/Vol] Ordered By: Chris Henning on 70-61-0111Efszyzxro (Bld) [#/Vol]Automated basophil count0.0-0.2FSumma Health Wadsworth - Rittman Medical CenterBasophils/100 WBC Auto (Bld)Ordered By: Chris Henning on 80-00-5279Viizfpguy/100 WBC (Bld)Automated basophil %.[facility] Children'S HospitalBlood Cultureon 31-70-7061Hbsgfffd identified Cx Nom (Bld)Blood Culture Results No Growth 5 Days PERFORMED BY: [place] [address] PATHOLOGIST [employer] NICOLE SOW M.D.NormalThe Critical Access Hospital Physician GroupComment on above: Performed By: #### CUBLD #### [place] [address] USABacteria identified Cx Nom (Bld)Blood Culture Results No Growth 5 Days PERFORMED BY: [place] [address] PATHOLOGIST [employer] NICOLE SOW M.D.NormalThe Critical Access Hospital Physician GroupComment on above: Performed By: #### CUBLD #### [place] [address] USAComplete Blood Count Auto Diffon 06-07-7340Gfkdzdkst (Bld) [#/Vol]0.1 10*3/uLNormal0.0-0.2The Critical Access Hospital Physician GroupComment on above: Result Comment: PERFORMED BY: [place] [address] PATHOLOGIST [employer] NICOLE SOW M.D.Performed By: #### CUBLD #### [place] [address] USABasophils/100 WBC (Bld)0.8 %Normal.The Critical Access Hospital Physician GroupComment on above:Performed By: #### CUBLD #### [place] [address] USAEosinophils (Bld) [#/Vol]0.2 10*3/uLNormal0.0-0.45The Critical Access Hospital Physician GroupComment on above:Performed By: #### CUBLD #### [place] [address] USAEosinophils/100 WBC (Bld)1.6 %Normal.The Critical Access Hospital Physician GroupComment on above:Performed By: #### CUBLD #### [place] [address] USAErythrocyte distribution width (RBC) [Ratio]14.9 %Normal 11.9-15.3The Critical Access Hospital Physician GroupComment on above:Performed By: #### CUBLD #### [place] [address] USAHematocrit (Bld) [Volume fraction]32.5 %Low34.0-46.4The Critical Access Hospital Physician GroupComment on above:Performed By: #### CUBLD #### [place] [address] USAHemoglobin (Bld) [Mass/Vol]11.0 g/dLLow11.8-15.4The Critical Access Hospital Physician GroupComment on above:Performed By: #### CUBLD #### [place] [address] USALymphocytes (Bld) [#/Vol]0.8 10*3/uLLow1.00-4.8The Critical Access Hospital Physician GroupComment on above:Performed By: #### CUBLD #### [place] [address] USALymphocytes/100 WBC (Bld)9.1 %Normal.The Critical Access Hospital Physician GroupComment on above:Performed By: #### CUBLD #### [place] [address] USAMCH (RBC) [Entitic mass]30.3 hkHcwtni12.7-34.3The Critical Access Hospital Physician GroupComment on above:Performed By: #### CUBLD #### [place] [address] USAMCV (RBC) [Entitic vol]89.9 fNYcvcia87-817Oxn Critical Access Hospital Physician GroupComment on above:Performed By: #### CUBLD #### [place] [address] USAMean Corpuscular HGB Conc33.7 g/pOAonekp57.0-35.0The Critical Access Hospital Physician GroupComment on above:Performed By: #### CUBLD #### [facility] [address] [place] [address] USAMonocytes (Bld) [#/Vol]0.8 10*3/uLNormal0.0-0.8The Critical Access Hospital Physician GroupComment on above:Performed By: #### CUBLD #### [facility] [address] [place] [address] USAMonocytes/100 WBC (Bld)20.76 %High0.00-20.00The Critical Access Hospital Physician GroupComment on above:Result Comment: For adults in ED, MDW > 20.0 may be associated with a higher risk of sepsis during the first 12 hrs of hospital admissionPerformed By: #### CUBLD #### [place] [address] USAMonocytes/100 WBC (Bld)8.2 %Normal.The Critical Access Hospital Physician GroupComment on above:Performed By: #### CUBLD #### [place] [address] USANeutrophils (Bld) [#/Vol]7.4 10*3/uLNormal1.8-7.7The Critical Access Hospital Physician GroupComment on above:Performed By: #### CUBLD #### [place] [address] USANeutrophils/100 WBC (Bld)80.3 %Normal.The Critical Access Hospital Physician GroupComment on above:Performed By: #### CUBLD #### [place] [address] USANRBC%0.0 /100{WBC}Normal0-0.5The [facility] Comment on above:Performed By: #### CUBLD #### [place] [address] USAPlatelet mean volume (Bld) [Entitic vol]7.0 fLNormal 6.3-10.7The Critical Access Hospital Physician GroupComment on above:Performed By: #### CUBLD #### [place] [address] USAPlatelets (Bld) [#/Vol]265 10*3/qORhdoyk283-692Gfj Critical Access Hospital Physician GroupComment on above:Performed By: #### CUBLD #### [facility] [address] [place] [address] USARBC (Bld) [#/Vol]3.61 10*6/uLNormal3.60-5.00The Critical Access Hospital Physician GroupComment on above:Performed By: #### CUBLD #### [facility] [address] [place] [address] USAWBC (Bld) [#/Vol]9.2 10*3/uLNormal3.8-11.6The Critical Access Hospital Physician GroupComment on above:Performed By: #### CUBLD #### [facility] [address] [place] [address] USAEosinophils Auto (Bld) [#/Vol]Ordered By: Chris Henning on 59-76-9585Cnismiibojv (Bld) [#/Vol]Automated eosinophil count0.0-0.45 [facility]S HospitalEosinophils/100 WBC Auto (Bld)Ordered By: Chris Henning on 07-58-7115Pyfcdnnjmvj/100 WBC (Bld)Automated eosinophil %. [facility]'S HospitalErythrocyte distribution width Auto (RBC) [Ratio]Ordered By: Chris Henning on 25-05-6371Zhdbnjnktaz distribution width (RBC) [Ratio]Erythrocyte distribution width [Ratio] by Automated count11.9-15.3 [facility]S HospitalHematocrit Auto (Bld) [Volume fraction]Ordered By: Chris Henning on 80-06-9026Jwcbdwgbbt (Bld) [Volume fraction]Hematocrit [Volume Fraction] of Blood by Automated llkdzHav23.0-46.4FSumma Health Wadsworth - Rittman Medical CenterHemoglobin [Mass/volume] in BloodOrdered By: Chris Henning on 03-21-3205Hlqtoafyly (Bld) [Mass/Vol]Hemoglobin [Mass/volume] in BloodLow 11.8-15.4FSumma Health Wadsworth - Rittman Medical CenterLaboratory - Microbiology and Antimicrobial susceptibilityOrdered By: Chris Henning on 48-52-3433Wflazodi identified Cx Nom (Bld)[facility]'S HospitalBacteria identified Cx Nom (Bld)[facility]'S HospitalLeukocytes [#/volume] corrected for nucleated erythrocytes in Blood by Automated counOrdered By: Chris Henning on 54-00-5132MKL corrected for nucl RBC Auto (Bld) [#/Vol]Leukocytes [#/volume] corrected for nucleated erythrocytes in Blood by Automated coun3.8-11.6FSumma Health Wadsworth - Rittman Medical CenterLymphocytes Auto (Bld) [#/Vol]Ordered By: Chris Henning on 75-39-1203Hzgdfambeca (Bld) [#/Vol]Lymphocytes [#/volume] in Blood by Automated countLow1.00-4.8Day[facility]'S HospitalLymphocytes/100 WBC Auto (Bld)Ordered By: Chris Henning on 50-85-7218Kfgwbwqsxqs/100 WBC (Bld) Lymphocytes/100 leukocytes in Blood by Automated count.[facility]'S HospitalMCH Auto (RBC) [Entitic mass]Ordered By: Chris Henning on 17-92-3820YOS (RBC) [Entitic mass]MCH [Entitic mass] by Automated count24.7-34.3 [facility]S HospitalMCHC Auto (RBC) [Mass/Vol]Ordered By: Chris Henning on 08-34-9528PZTK (RBC) [Mass/Vol]MCHC [Mass/volume] by Automated count 32.0-35.0[facility]'S HospitalMCV Auto (RBC) [Entitic vol]Ordered By: Chris Henning on 60-02-1703MWE (RBC) [Entitic vol]MCV [Entitic volume] by Automated abvph37-246QmmshkxofDayton Children'S HospitalMonocyte distribution width [Entitic volume] in Blood by AutomatedOrdered By: Chris Henning on 17-03-9562Cfzemzli distribution width Auto (Bld) [Entitic vol]Monocyte distribution width [Entitic volume] in Blood by AutomatedHigh0.00-20.00[facility]'S HospitalComment on above:For adults in ED, MDW > 20.0 may be associated with a higher risk of sepsis during the first 12 hrs of hospital admissionMonocytes Auto (Bld) [#/Vol]Ordered By: Chris Henning on 05-23-2024 Monocytes (Bld) [#/Vol]Automated blood monocyte count0.0-0.8[facility]'S HospitalMonocytes/100 WBC Auto (Bld)Ordered By: Chris Henning on 73-94-4695Spydzsibx/100 WBC (Bld)Automated monocyte %.[facility] Children'S HospitalNeutrophils Auto (Bld) [#/Vol]Ordered By: Chris Henning on 05-23-2024 Neutrophils (Bld) [#/Vol]Neutrophils [#/volume] in Blood by Automated count 1.8-7.7FSumma Health Wadsworth - Rittman Medical CenterNeutrophils/100 WBC Auto (Bld)Ordered By: Chris Henning on 00-84-5111Hdnlglqnmsz/100 WBC (Bld)Automated neutrophil %. [facility]'S HospitalNucleated erythrocytes [Presence] in Blood by Automated countOrdered By: Crhis Henning on 45-26-7253Cbzuzipmp RBC Auto Ql (Bld)Nucleated erythrocytes [Presence] in Blood by Automated count0-0.5FSumma Health Wadsworth - Rittman Medical CenterPlatelet mean volume Auto (Bld) [Entitic vol]Ordered By: Chris Henning on 12-74-7670Kiieqvga mean volume (Bld) [Entitic vol]Platelet mean volume [Entitic volume] in Blood by Automated count6.3-10.7FSumma Health Wadsworth - Rittman Medical CenterPlatelets Auto (Bld) [#/Vol]Ordered By: Chris Henning on 74-04-6311Jurtgrhvz (Bld) [#/Vol]Platelets [#/volume] in Blood by Automated urrgg781-814JdvikxixhDayton Children'S HospitalRBC Auto (Bld) [#/Vol]Ordered By: Chris Henning on 66-02-7287IQD (Bld) [#/Vol]Erythrocytes [#/volume] in Blood by Automated count3.60-5.00Day[facility] Children'S HospitalWBC Auto (Bld) [#/Vol] Ordered By: Chris Henning on 37-03-9212BAI (Bld) [#/Vol]Leukocytes [#/volume] in Blood by Automated count3.8-11.6FSumma Health Wadsworth - Rittman Medical CenterBasic Metabolic Panelon 12-35-4073Fhmki gap [Moles/Vol]13.0 mmol/LNormal6.0-15.0The [facility] Access Hospital Physician GroupComment on above:Performed By: #### BMP, CBC #### [place] [address] USACalcium [Mass/Vol]8.2 mg/dLLow8.6-10.3The Critical Access Hospital Physician GroupComment on above:Performed By: #### BMP, CBC #### [place] [address] USAChloride [Moles/Vol]106 mmol/SUfszpt35-039Ifw [facility] Access Hospital Physician GroupComment on above:Performed By: #### BMP, CBC #### [place] [address] USACO2 [Moles/Vol]23.6 mmol/MUmtkzd65.0-31.0The [facility] Access Hospital Physician GroupComment on above:Performed By: #### BMP, CBC #### [place] [address] USACreatinine [Mass/Vol]0.56 mg/dLLow0.60-1.20The [facility] Access Hospital Physician GroupComment on above:Performed By: #### BMP, CBC #### [place] [address] USACreatinine Clr Calc Ohxqoaig44.82NormalThe Critical Access Hospital Physician GroupComment on above:Result Comment: PERFORMED BY: [place] [address] PATHOLOGIST [employer]CH[employer] NICOLE SOW M.D.Performed By: #### BMP, CBC #### [place] [address] USAGFR/1.73 sq M.predicted MDRD (S/P/Bld) [Vol rate/Area] mL/min/{1.73_m2}NormalThe Critical Access Hospital Physician GroupComment on above:Performed By: #### BMP, CBC #### [place] [address] USAGlucose [Mass/Vol]129 mg/mTUidh91-337Cbv Critical Access Hospital Physician GroupComment on above:Result Comment: Random Glucose Reference Range is dependent on time and content of last meal. Glucose of more than 200 mg/dL in a nonstressed, ambulatory subject supports the diagnosis of Diabetes Mellitus. ADA recommended reference rangePerformed By: #### BMP, CBC #### [facility] [address] [place] [address] USAPotassium [Moles/Vol]3.6 mmol/LNormal3.5-5.1The Critical Access Hospital Physician GroupComment on above:Performed By: #### BMP, CBC #### [facility] [address] [place] [address] USASodium [Moles/Vol]139 mmol/VMtizmb631-267Jzl Critical Access Hospital Physician GroupComment on above:Performed By: #### BMP, CBC #### [place] [address] USAUrea nitrogen [Mass/Vol]18 mg/dLNormal7-25The Critical Access Hospital Physician GroupComment on above:Performed By: #### BMP, CBC #### [place] [address] USABasophils Auto (Bld) [#/Vol]Ordered By: Chris Henning on 73-40-6171Cfqzmyzeb (Bld) [#/Vol]Automated basophil count0.0-0.2FSumma Health Wadsworth - Rittman Medical CenterBasophils/100 WBC Auto (Bld)Ordered By: Chris Henning on 84-62-6714Nrfgrgwep/100 WBC (Bld)Automated basophil %.[facility]'S HospitalBlood Cultureon 27-24-0284Nrsayvzl identified Cx Nom (Bld)NO GROWTH 5 DAYS PERFORMED BY: [address] [place] [address] PATHOLOGIST [employer] ARCHIT[employer] NICOLE SOW M.D.NormalThe Critical Access Hospital Physician GroupComment on above: Performed By: #### CUBLD #### [place] [id number] USABacteria identified Cx Nom (Bld)Results called at 0620 on 05/23/24 Gram Stain Gram Positive Cocci in Clusters ORGANISM: Methicillin Resis Staph Aureus (O:MRSA) Aerobic JOANNE Charge (PCMIC38) SUSCEPTIBILITY ORGANISM: O:MRSA ANTIBIOTIC INTERPRETATION JOANNE Azithromycin R >4 Ceftaroline S 1 Daptomycin S 1 Linezolid S 4 Oxacillin R >2 Penicillin R >2 Tetracycline S <4 Trimethoprim/Sulfamethoxazole R >2 Vancomycin S 1 Results called [...] calcoaceticus-baumannii complex DNA [Presence] by ELLIOTT with non- probe detection in Positive blood culture Not detected [...] Not detected Streptococcus pneumoniae - reported at [facility] Not detected Proteus sp DNA [Presence] by [...] culture Not detected Group A (Streptococcus pyogenes) [id number] Not detected Group B Strep (Streptococcus agalactiae) [...] SUSCEPTIBLE I = I (more content not included)...NormalThe Critical Access Hospital Physician GroupComment on above:Performed By: #### CUBLD #### [facility] [address] [place] [address] USACalcium [Mass/volume] in Serum or PlasmaOrdered By: Chris Henning on 11-33-6340Awktjsb [Mass/Vol]Calcium [Mass/volume] in Serum or PlasmaLow8.6-10.3FSumma Health Wadsworth - Rittman Medical CenterCarbon dioxide, total [Moles/volume] in Serum or PlasmaOrdered By: Chris Henning on 97-09-9376OS5 [Moles/Vol]Carbon dioxide, total [Moles/volume] in Serum or Dvkkso21.0-31.0 [facility]S HospitalChloride [Moles/volume] in Serum or Plasma Ordered By: Chris Henning on 72-94-7810Pbaxrgvu [Moles/Vol]Chloride [Moles/volume] in Serum or Tndxbx00-652EtcsbreumDayton Children'S HospitalComplete Blood Count Auto Diffon 60-89-8825Rurrclhwx (Bld) [#/Vol]0.1 10*3/uLNormal 0.0-0.2The Critical Access Hospital Physician GroupComment on above:Result Comment: PERFORMED BY: [place] [address] PATHOLOGIST [employer] ARCHIT[employer] NICOLE SOW M.D.Performed By: #### BMP, CBC #### [place] [address] USABasophils/100 WBC (Bld)0.6 %Normal.The Critical Access Hospital Physician GroupComment on above:Performed By: #### BMP, CBC #### [facility] [address] [place] [address] USAEosinophils (Bld) [#/Vol]0.1 10*3/uLNormal0.0-0.45The Critical Access Hospital Physician GroupComment on above:Performed By: #### BMP, CBC #### [facility] [address] [place] [address] USAEosinophils/100 WBC (Bld)1.1 %Normal.The Critical Access Hospital Physician GroupComment on above:Performed By: #### BMP, CBC #### [facility] [address] [place] [address] USAErythrocyte distribution width (RBC) [Ratio]14.3 %Normal 11.9-15.3The Critical Access Hospital Physician GroupComment on above:Performed By: #### BMP, CBC #### [place] [address] USAHematocrit (Bld) [Volume fraction]34.5 %Oiioep11.0-46.4The Critical Access Hospital Physician GroupComment on above:Performed By: #### BMP, CBC #### [place] [address] USAHemoglobin (Bld) [Mass/Vol]11.7 g/dLLow11.8-15.4The Critical Access Hospital Physician GroupComment on above:Performed By: #### BMP, CBC #### [place] [address] USALymphocytes (Bld) [#/Vol]0.9 10*3/uLLow1.00-4.8The Critical Access Hospital Physician GroupComment on above:Performed By: #### BMP, CBC #### [place] [address] USALymphocytes/100 WBC (Bld)9.0 %Normal.The Critical Access Hospital Physician GroupComment on above:Performed By: #### BMP, CBC #### [place] [address] USAMCH (RBC) [Entitic mass]30.3 mhGfxqbw86.7-34.3The Critical Access Hospital Physician GroupComment on above:Performed By: #### BMP, CBC #### [place] [address] USAMCV (RBC) [Entitic vol]89.5 sHIhtxtz60-236Ndn Critical Access Hospital Physician GroupComment on above:Performed By: #### BMP, CBC #### [place] [address] USAMean Corpuscular HGB Conc33.9 g/dOLoqeby07.0-35.0The Critical Access Hospital Physician GroupComment on above:Performed By: #### BMP, CBC #### [place] [address] USAMonocytes (Bld) [#/Vol]0.8 10*3/uLNormal0.0-0.8The Critical Access Hospital Physician GroupComment on above:Performed By: #### BMP, CBC #### [place] [address] USAMonocytes/100 WBC (Bld)19.47 %Normal0.00-20.00The Critical Access Hospital Physician GroupComment on above:Performed By: #### BMP, CBC #### [place] [address] USAMonocytes/100 WBC (Bld)7.4 %Normal.The Critical Access Hospital Physician GroupComment on above:Performed By: #### BMP, CBC #### [place] [address] USANeutrophils (Bld) [#/Vol]8.5 10*3/uLHigh1.8-7.7The Critical Access Hospital Physician GroupComment on above:Performed By: #### BMP, CBC #### [place] [address] USANeutrophils/100 WBC (Bld)81.9 %Normal.The Critical Access Hospital Physician GroupComment on above:Performed By: #### BMP, CBC #### [place] [address] USANRBC%0.0 /100{WBC}Normal0-0.5The [facility] Physician Group Comment on above:Performed By: #### BMP, CBC #### [place] [address] USAPlatelet mean volume (Bld) [Entitic vol]6.8 fLNormal 6.3-10.7The Critical Access Hospital Physician GroupComment on above:Performed By: #### BMP, CBC #### [place] [address] USAPlatelets (Bld) [#/Vol]265 10*3/bJFfmsxu127-741Blu Critical Access Hospital Physician GroupComment on above:Performed By: #### BMP, CBC #### [place] [address] USARBC (Bld) [#/Vol]3.85 10*6/uLNormal3.60-5.00The Critical Access Hospital Physician GroupComment on above:Performed By: #### BMP, CBC #### [facility] [address] [place] [address] USAWBC (Bld) [#/Vol]10.4 10*3/uLNormal3.8-11.6The Critical Access Hospital Physician GroupComment on above:Performed By: #### BMP, CBC #### [facility] [address] [place] [address] USACreatinine [Mass/volume] in Serum or PlasmaOrdered By: Chris Henning on 39-12-7588Xlexpvoalf [Mass/Vol]Creatinine [Mass/volume] in Serum or PlasmaLow0.60-1.20Day[facility] Children'S HospitalEosinophils Auto (Bld) [#/Vol]Ordered By: Chris Henning on 03-72-6138Ravmnivanwo (Bld) [#/Vol] Automated eosinophil count0.0-0.45[facility] Eosinophils/100 WBC Auto (Bld)Ordered By: Chris Henning on 05-22-2024 Eosinophils/100 WBC (Bld)Automated eosinophil %.[facility] Children'S HospitalErythrocyte distribution width Auto (RBC) [Ratio]Ordered By: Chris Henning on 04-28-8056Iesjyiidhwz distribution width (RBC) [Ratio]Erythrocyte distribution width [Ratio] by Automated count11.9-15.3FSumma Health Wadsworth - Rittman Medical CenterGlucose [Mass/volume] in Serum or PlasmaOrdered By: Chris Henning on 02-21-3287Anhmvor [Mass/Vol]Glucose [Mass/volume] in Serum or XuydbzRynn61-352 [facility]'S HospitalComment on above:ADA recommended reference rangeRandom Glucose Reference Range is dependent on time and content of last meal. Glucose of more than 200 mg/dL in a nonstressed, ambulatory subject supports the diagnosisof Diabetes Mellitus.Hematocrit Auto (Bld) [Volume fraction]Ordered By: Chris Henning on 78-38-7046Aiiapocvwm (Bld) [Volume fraction]Hematocrit [Volume Fraction] of Blood by Automated count34.0-46.4 [facility]'S HospitalHemoglobin [Mass/volume] in BloodOrdered By: Chris Henning on 48-80-3140Tlpnletiko (Bld) [Mass/Vol]Hemoglobin [Mass/volume] in FozfqTfa40.8-15.4FSumma Health Wadsworth - Rittman Medical CenterLaboratory - Microbiology and Antimicrobial susceptibilityOrdered By: Chris Henning on 86-95-3982Nssncmhi identified Cx Nom (Bld)NO GROWTH 5 DAYSDayton Children'S Hospital Bacteria identified Cx Nom (Bld)AbnormalDayton Children'S Hospital Leukocytes [#/volume] corrected for nucleated erythrocytes in Blood by Automated counOrdered By: Chris Henning on 05-55-0531LUR corrected for nucl RBC Auto (Bld) [#/Vol]Leukocytes [#/volume] corrected for nucleated erythrocytes in Blood by Automated coun3.8-11.6FSumma Health Wadsworth - Rittman Medical CenterLymphocytes Auto (Bld) [#/Vol]Ordered By: Chris Henning on 92-06-8216Fmrylbxnset (Bld) [#/Vol] Lymphocytes [#/volume] in Blood by Automated countLow1.00-4.8Day[facility] Children'S HospitalLymphocytes/100 WBC Auto (Bld)Ordered By: Chris Henning on 77-27-9349Lryyemqsbek/100 WBC (Bld)Lymphocytes/100 leukocytes in Blood by Automated count.[facility] Children'S HospitalMCH Auto (RBC) [Entitic mass] Ordered By: Chris Henning on 71-62-8234CUB (RBC) [Entitic mass]MCH [Entitic mass] by Automated count24.7-34.3FSumma Health Wadsworth - Rittman Medical CenterMCHC Auto (RBC) [Mass/Vol]Ordered By: Chris Henning on 90-34-2966BJBT (RBC) [Mass/Vol] MCHC [Mass/volume] by Automated count32.0-35.0[facility] MCV Auto (RBC) [Entitic vol]Ordered By: Chris Henning on 41-00-7354NUF (RBC) [Entitic vol]MCV [Entitic volume] by Automated -292ItwsyhrbqDayton Children'S HospitalMonocyte distribution width [Entitic volume] in Blood by Automated Ordered By: Chris Henning on 70-07-3311Hwepktrj distribution width Auto (Bld) [Entitic vol]Monocyte distribution width [Entitic volume] in Blood by Automated 0.00-20.00Day[facility] Children'S HospitalMonocytes Auto (Bld) [#/Vol]Ordered By: Chris Henning on 08-48-8183Wqkiuuwpt (Bld) [#/Vol]Automated blood monocyte count0.0-0.8Day[facility] Children'S HospitalMonocytes/100 WBC Auto (Bld)Ordered By: Chris Henning on 01-05-9473Npphntnwm/100 WBC (Bld)Automated monocyte %. [facility]'S HospitalNeutrophils Auto (Bld) [#/Vol]Ordered By: Chris Henning on 84-15-6913Cmnzgemcxze (Bld) [#/Vol]Neutrophils [#/volume] in Blood by Automated countHigh1.8-7.7FSumma Health Wadsworth - Rittman Medical Center Neutrophils/100 WBC Auto (Bld)Ordered By: Chris Henning on 05-22-2024 Neutrophils/100 WBC (Bld)Automated neutrophil %.[facility]'S HospitalNo Panel InformationOrdered By: Chris Henning on 38-34-7045Tlzcgzqjh ID (NA Multiplex Assay)[facility]'S HospitalEstimated GFR (CKD-EPI)> 60.0 mL/MinDayton Children'S HospitalPharmacy Creatinine Clearance (Chem 63.82Day[facility] Children'S HospitalNucleated erythrocytes [Presence] in Blood by Automated countOrdered By: Chris Henning on 57-64-5668Vshsmplqx RBC Auto Ql (Bld)Nucleated erythrocytes [Presence] in Blood by Automated count0-0.5 [facility]'S HospitalPlatelet mean volume Auto (Bld) [Entitic vol] Ordered By: Chris Henning on 94-73-6435Qvsrhols mean volume (Bld) [Entitic vol] Platelet mean volume [Entitic volume] in Blood by Automated count6.3-10.7 [facility]S HospitalPlatelets Auto (Bld) [#/Vol]Ordered By: Chris Henning on 94-08-4106Gbjfxjcqq (Bld) [#/Vol]Platelets [#/volume] in Blood by Automated ufpdn648-700PmkzgvwxbDayton Children'S HospitalPotassium [Moles/volume] in Serum or PlasmaOrdered By: Chris Henning on 19-49-0313Xlymfxzlt [Moles/Vol] Potassium [Moles/volume] in Serum or Plasma3.5-5.1FSumma Health Wadsworth - Rittman Medical CenterRBC Auto (Bld) [#/Vol]Ordered By: Chris Henning on 85-26-1042JKQ (Bld) [#/Vol]Erythrocytes [#/volume] in Blood by Automated count3.60-5.00Guernsey Memorial Hospitalerum or plasma anion gap determinationOrdered By: Chris Henning on 90-34-4277Vmccf gap [Moles/Vol]Serum or plasma anion gap determination6.0-15.0[facility] Memorial Hospitalodium [Moles/volume] in Serum or PlasmaOrdered By: Chris Henning on 40-23-6625Rqsofe [Moles/Vol]Sodium [Moles/volume] in Serum or Ffppyl484-961TybrtczxvDayton Children'S HospitalUrea nitrogen [Mass/volume] in Serum or PlasmaOrdered By: Chris Henning on 85-59-9490Jkqv nitrogen [Mass/Vol]Urea nitrogen [Mass/volume] in Serum or Plasma 7-25Day[facility] Children'S HospitalWBC Auto (Bld) [#/Vol]Ordered By: Chris Henning on 60-11-7045ZEF (Bld) [#/Vol]Leukocytes [#/volume] in Blood by Automated count3.8-11.6FSumma Health Wadsworth - Rittman Medical CenterX-ray reportOrdered By: Princess Sanchez on 53-68-4678Dnanw reportSAMARITAN NORTH [place] [address] XRay Report Signed Patient: Evan Gill MR#: [id number] : 1955 Acct:[id number] Age/Sex: 68 / F ADM Date: 4 Loc: ER Room: Type: [facility] ER Attending Dr: Copies to: Chris [...] the distal third and fifth fingers. There isalso hypertrophy and subchondral cystic change. Mild degenerative change is also noted at the firstcarpal metacarpal joint. Soft tissue swelling is present at the third finger, greater distally. There is no subcutaneous air or radiopaque foreign bodies. XR/XR finger RT 3rd digit IMPRESSION: OSTEOPENIA AND DEGENERATIVE CHANGES. NO ACUTE BONY FINDINGS. SOFT TISSUE SWELLING AT THE THIRD FINGER. Impression dictated by: Princess Sanchez M.D.05/22/2024 12:50 PM Dictation Location: [place] [address] Transcribed By: [facility] 05/22/24 1250 Dictated By: Princess Sanchez MD 05/22/24 1245 Signed By: 05/22/24 1250 [facility] Work Phone: XR finger RT 3rd digiton 31-49-7024BI finger RT 3rd digitSAMARITAN NORTH HEALTH CENTER Main [place] [address] [place] [address] XRay Report Signed Patient: Evan Gill MR#: [id number] : 1955 Acct:[id number] Age/Sex: 68 / F ADM Date: 05/22/24 Loc: ER Room: Type: [facility] ER Attending Dr: Copies to: Chris [...] Princess Sanchez M.D.05/22/2024 12:50 PM Dictation Location: [place] [address] Transcribed By: [facility] 05/22/24 1250 Dictated By: Princess Sanchez MD 05/22/24 1245 Signed By: 05/22/24 1250[facility] Phys[facility] GroupBasophils Auto (Bld) [#/Vol]on 22-10-1215Buljhvglm (Bld) [#/Vol]Automated basophil count<0.11[facility]'S HospitalBasophils/100 WBC Auto (Bld)on 65-12-9666Kyrutnldq/100 WBC (Bld) Automated basophil %[facility]'S HospitalBlood manual differential comment interpretation narrativeon 15-12-0614Evuywt differential comment Ankush (Bld) [Interp]Blood manual differential comment interpretation narrative [facility]S HospitalCBC W Auto Differential panel (Bld)on 10-42-9428Mqjxnroph (Bld) [#/Vol]0.06 10*3/uLNormal<0.11Avon HospitalComment on above:Order Comment: Specimen Type: BLOOD SPECIMEN Ordering Facility: [facility] Address: [address] [place], [place] [address]Performed By: #### 37561-6 #### [facility] CLIA [id number] [place] [address] [place] AMERICABasophils/100 WBC (Bld)1.0 %NormalAvon HospitalComment on above:Order Comment: Specimen Type: BLOOD SPECIMEN Ordering Facility: [facility] Address: [address] [place], [place] [address]Performed By: #### 86279-1 #### [facility] CLIA [id number] [place] [address] [place] AMERICADifferential cell count method Nom (Bld) AutoNormalAvon HospitalComment on above:Order Comment: Specimen Type: BLOOD SPECIMEN Ordering Facility: [facility] Address: [address] [place], [place] [address]Performed By: #### 29345-8 #### [facility] [place] [id number] [place] [address] [place] AMERICAEosinophils (Bld) [#/Vol]0.28 10*3/uL Normal<0.46Av HospitalComment on above:Order Comment: Specimen Type: BLOOD SPECIMEN Ordering Facility: [facility] Address: [address] [place], [place] [address]Performed By: #### 11153-9 #### [facility] [id number] [place] [address] [place] AMERICAEosinophils/100 WBC (Bld)4.5 %NormalAv HospitalComment on above:Order Comment: Specimen Type: BLOOD SPECIMEN Ordering Facility: [facility] Address: [address] [place], [place] [address]Performed By: #### 93961-6 #### [facility] [id number] [place] [address] [place] AMERICAErythrocyte distribution width (RBC) [Ratio]14.1 %Trsuaz58.5-15.0Av HospitalComment on above:Order Comment: Specimen Type: BLOOD SPECIMEN Ordering Facility: [facility] Address: [address] [place], [place] [address]Performed By: #### 04615-2 #### [facility] [id number] [place] [address] [place] OF AMERICAHematocrit (Bld) [Volume fraction]40.3 % Dihmey24.0-46.0Av HospitalComment on above:Order Comment: Specimen Type: BLOOD SPECIMEN Ordering Facility: [facility] Address: [address] [place], [place] [address]Performed By: #### 18619-9 #### [facility] [place] [id number] [address] [place] [address] [place] AMERICAHemoglobin (Bld) [Mass/Vol]12.5 g/dL Ndffcr14.5-15.5Avon HospitalComment on above:Order Comment: Specimen Type: BLOOD SPECIMEN Ordering Facility: [facility] Address: [address] [place], [place] [address]Performed By: #### 75043-3 #### [facility] [place] [id number] [address] [place] [address] [place] AMERICAImmature granulocytes (Bld) [#/Vol] 10*3/uLNormal<0.10Avon HospitalComment on above:Order Comment: Specimen Type: BLOOD SPECIMEN Ordering Facility: [facility] Address: [address] [place], [place] [address]Performed By: #### 98949-5 #### [facility] [place] [id number] [address] [place] [address] [place] AMERICAImmature granulocytes/100 WBC (Bld)0.2 % NormalAv HospitalComment on above:Order Comment: Specimen Type: BLOOD SPECIMEN Ordering Facility: [facility] Address: [address] [place], [place] [address]Performed By: #### 29649-4 #### [facility] [place] [id number] [address] [place] [address] [place] AMERICALymphocytes (Bld) [#/Vol]1.48 10*3/uL Normal1.00-4.00Avon HospitalComment on above:Order Comment: Specimen Type: BLOOD SPECIMEN Ordering Facility: [facility] Address: [address] [place], [place] [address]Performed By: #### 40498-1 #### [facility] [place] [id number] [address] [place] [address] [place] AMERICALymphocytes/100 WBC (Bld)23.9 %NormalAv HospitalComment on above:Order Comment: Specimen Type: BLOOD SPECIMEN Ordering Facility: [facility] Address: [address] [place], [place] [address]Performed By: #### 87091-2 #### [facility] [place] [id number] [address] [place], [place] [id number] [place] [address] (RBC) [Entitic mass]29.5 pgNormal 26.0-34.0Av HospitalComment on above:Order Comment: Specimen Type: BLOOD SPECIMEN Ordering Facility: [facility] Address: [address] [place], [place] [address]Performed By: #### 13213-9 #### [facility] IA [id number] [place], [place] [address]HC (RBC) [Mass/Vol]31.0 g/dLNormal 30.5-36.0Av HospitalComment on above:Order Comment: Specimen Type: BLOOD SPECIMEN Ordering Facility: [facility] Address: [address] [place], [place] [address]Performed By: #### 92092-8 #### [facility] [place] [id number] [address] (RBC) [Entitic vol]95.0 fLNormal 80.0-100.0Av HospitalComment on above:Order Comment: Specimen Type: BLOOD SPECIMEN Ordering Facility: [facility] Address: [address] [place], [place] [address]Performed By: #### 52210-8 #### [facility] IA [id number] [address] [place], [place] [id number] [place], [place] [address]Monocytes (Bld) [#/Vol]0.41 10*3/uLNormal <0.87Av HospitalComment on above:Order Comment: Specimen Type: BLOOD SPECIMEN Ordering Facility: [facility] Address: [address] [place], [place] [address]Performed By: #### 22656-4 #### [facility] IA [id number] [address] [place] [address] [place] AMERICAMonocytes/100 WBC (Bld)6.6 %NormalAv HospitalComment on above:Order Comment: Specimen Type: BLOOD SPECIMEN Ordering Facility: [facility] Address: [address] [place], [place] [address]Performed By: #### 22829-5 #### [facility] CLIA [id number] [address] [place] [address] [place] AMERICANeutrophils (Bld) [#/Vol]3.94 10*3/uL Normal1.45-7.50Av HospitalComment on above:Order Comment: Specimen Type: BLOOD SPECIMEN Ordering Facility: [facility] Address: [address] [place], [place] [address]Performed By: #### 34786-0 #### [facility] [place] [id number] [address] [place] [address] [place] AMERICANeutrophils/100 WBC (Bld)63.8 %NormalAv HospitalComment on above:Order Comment: Specimen Type: BLOOD SPECIMEN Ordering Facility: [facility] Address: [address] [place], [place] [address]Performed By: #### 92237-6 #### [facility] IA [id number] [address] [place] [address] [place] AMERICANucleated RBC (Bld) [#/Vol]10*3/uLNormal <0.01Av HospitalComment on above:Order Comment: Specimen Type: BLOOD SPECIMEN Ordering Facility: [facility] Address: [address] [place], [place] [address]Performed By: #### 43837-0 #### [facility] IA [id number] [address] [place] [address] [place] AMERICANucleated RBC/100 WBC (Bld) [Ratio]0.0 /100 WBCNormalAvon HospitalComment on above:Order Comment: Specimen Type: BLOOD SPECIMEN Ordering Facility: [facility] Address: [address] [place], [place] [address]Performed By: #### 87512-0 #### [facility] [place] [id number] [address] [address] [place] AMERICAPlatelet mean volume (Bld) [Entitic vol] 8.8 fLLow9.0-12.7Avon HospitalComment on above:Order Comment: Specimen Type: BLOOD SPECIMEN Ordering Facility: [facility] Address: [address] [place], [place] [address]Performed By: #### 68257-5 #### [facility] [place] [id number] [address] [place] [address] [place] AMERICAPlatelets (Bld) [#/Vol]268 10*3/uLNormal 150-400Av HospitalComment on above:Order Comment: Specimen Type: BLOOD SPECIMEN Ordering Facility: [facility] Address: [address] [place], [place] [address]Performed By: #### 87861-2 #### [facility] IA [id number] [address] [facility] CENTERRBC (Bld) [#/Vol]4.24 10*6/uLNormal 3.90-5.20Av HospitalComment on above:Order Comment: Specimen Type: BLOOD SPECIMEN Ordering Facility: [facility] Address: [address] [place], [place] [address]Performed By: #### 81774-5 #### [facility] IA [id number] [address] [place] [address] [place] [facility]TRI[facility] MEDICAL CENTERWBC (Bld) [#/Vol]6.18 10*3/uLNormal 3.70-11.00Av HospitalComment on above:Order Comment: Specimen Type: BLOOD SPECIMEN Ordering Facility: [facility] Address: [address] [place], [place] [address]Performed By: #### 26586-2 #### [facility] IA [id number] [address] [place] [address] [facility] 05-08-2024 Carcinoembryonic Ag [Mass/Vol]2.8 ng/mLNormal<=2.9Avon HospitalComment on above: Order Comment: Specimen Type: BLOOD SPECIMEN Ordering Facility: [facility] Address: [address] [place], [place] [address]Result Comment: Carcinoembryonic antigen test is used as an aid in monitoring response to treatmentor recurrence in patients with established colorectal, breast, lung, prostatic, pancreatic, and ovarian carcinomas. Clinical correlation is required. The Carcinoembryonic antigen test was performed using the [employer] Unicel DXI paramagnetic particle chemiluminescent immunoassay method. Results obtained with different assay methods or kits cannot be used interchangeably.Performed By: #### 2039-6 #### [facility] CLIA [id number] [address] [place] [address] STATES OF [facility] MEDICAL CENTERCNOVSPon 62-95-2187AUOJYF Visit (SP) Office (HEMAVN) EVAN GILL ([id number]) 1955 F Date Time Provider Department 05/08/24 1:45 PM TAPAN CORONA During your visit today, we recorded the following information about you: Temperature Pulse Respiration Blood pressure 99 degrees 70/minute 18/minute 132/71 Weight Height 69.4 kg 1.626 m Tapan Corona MD 05/08/2024 2:21 PM Signed PATIENT NAME: Evan Romo Jairo CLINIC NO.: [id number] ATTENDING PHYSICIAN: Tapan Corona MD DATE OF SERVICE: May 08, 2024 Some of the elements of this note have been copied from my previous progress note dated 02/06/2024. All the information has been reviewed carefully. Dear Dr. Bazzi here is an update on a follow up visit on female Evanriya Dunnalysha at the clinic May 08, 2024 Diagnosis: [...] Range Status 02/06/2024 3 (more content not included)...[facility] 2000 panelon 68-93-3465Ggxsimd [Mass/Vol]4.4 g/dLNormal 3.9-4.9Avon HospitalComment on above:Order Comment: Specimen Type: BLOOD SPECIMEN Ordering Facility: [facility] Address: [address] [place], [place] [address]Performed By: #### 53160-0 #### [facility] CLIA [id number] [address] [place] [address] [place] AMERICAALP [Catalytic activity/Vol]65 U/LNormal 34-123Av HospitalComment on above:Order Comment: Specimen Type: BLOOD SPECIMEN Ordering Facility: [facility] Address: [address] [place], [place] [address]Performed By: #### 69763-9 #### [facility] CLIA [id number] [address] [place] [address] [place] AMERICAALT [Catalytic activity/Vol]21 U/LNormal 7-38Av HospitalComment on above:Order Comment: Specimen Type: BLOOD SPECIMEN Ordering Facility: [facility] Address: [address] [place], [place] [address]Performed By: #### 27370-7 #### [facility] CLIA [id number] [place] [address] [place] AMERICAAnion gap [Moles/Vol]9 mmol/LNormal8-15 Myriam HospitalComment on above:Order Comment: Specimen Type: BLOOD SPECIMEN Ordering Facility: [facility] Address: [address] [place], [place] [address]Performed By: #### 75107-0 #### [facility] CLIA [id number] [address] [place] [address] [place] AMERICAAST [Catalytic activity/Vol]24 U/LNormal 13-35Av HospitalComment on above:Order Comment: Specimen Type: BLOOD SPECIMEN Ordering Facility: [facility] Address: [address] [place], [place] [address]Performed By: #### 03269-0 #### [facility] IA [id number] [address] [place] [address] [place] AMERICABilirubin [Mass/Vol]0.3 mg/dLNormal 0.2-1.3Avon HospitalComment on above:Order Comment: Specimen Type: BLOOD SPECIMEN Ordering Facility: [facility] Address: [address] [place], [place] [address]Performed By: #### 82642-5 #### [facility] IA [id number] [address] [place] [address] [place] AMERICACalcium [Mass/Vol]9.6 mg/dLNormal8.5-10.2 Pinole HospitalComment on above:Order Comment: Specimen Type: BLOOD SPECIMEN Ordering Facility: [facility] Address: [address] [place], [place] [address]Performed By: #### 25281-0 #### [facility] IA [id number] [address] [place] [address] [place] AMERICAChloride [Moles/Vol]106 mmol/LNormal 98-107Avon HospitalComment on above:Order Comment: Specimen Type: BLOOD SPECIMEN Ordering Facility: [facility] Address: [address] [place], [place] [address]Performed By: #### 75721-5 #### [facility] IA [id number] [address] [place] [address] [place] AMERICACO2 [Moles/Vol]28 mmol/ZOdifpv31-35Sszk HospitalComment on above:Order Comment: Specimen Type: BLOOD SPECIMEN Ordering Facility: [facility] Address: [address] [place], [place] [address]Performed By: #### 70727-4 #### [facility] IA [id number] [address] [place] [address] [place] AMERICACreatinine [Mass/Vol]0.69 mg/dLNormal 0.58-0.96Av HospitalComment on above:Order Comment: Specimen Type: BLOOD SPECIMEN Ordering Facility: [facility] Address: [address] [place] [id number] By: #### 41444-1 #### [facility] CLIA [id number] [address] [place] [address] [place] AMERICACreatinine and Glomerular filtration rate.predicted panel (S/P/Bld)93 mL/min/1.73m???Normal>=60[facility] Community HospitalComment on above:Order Comment: Specimen Type: BLOOD SPECIMEN Ordering Facility: [facility] Address: [address] [place], [place] [address]Result Comment: Estimated Glomerular Filtration Rate (eGFR) is calculated using the 2020 CKD-EPI cre atinine equation. This equation utilizes serum creatinine, sex, and age as parameters. The creatinine assay has traceable calibration to isotope dilution- mass spectrometry. Refer to KDIGO guidelines for clinical interpretation. In patients with unstable renal function, e.g. those with acute kidney injury, the eGFR may not accurately reflect actual GFR.Performed By: #### 77475-1 #### [facility] CLIA [id number] [place] [address] [place] AMERICAGlucose [Mass/Vol]107 mg/iHDtii95-54Hsjl HospitalComment on above:Order Comment: Specimen Type: BLOOD SPECIMEN Ordering Facility: [facility] Address: [address] [place], [place] [address]Result Comment: The [place] Diabetes Association (ADA) provides guidance for cutoff [...] Standards of Medical Care in Diabetes 2016, [place] Diabetes Association. Diabetes Care. 2016.39(Suppl 1).Performed By: #### 63322-8 #### [facility] CLIA [id number] [place] [address] [place] AMERICAPotassium [Moles/Vol]4.8 mmol/LNormal 3.7-5.1[facility] HospitalComment on above:Order Comment: Specimen Type: BLOOD SPECIMEN Ordering Facility: [facility] Address: [address] [place], [place] [address]Performed By: #### 49111-0 #### [facility] IA [id number] [place] [address] [place] AMERICAProtein [Mass/Vol]6.8 g/dLNormal6.3-8.0 Pinole HospitalComment on above:Order Comment: Specimen Type: BLOOD SPECIMEN Ordering Facility: [facility] Address: [address] [place], [place] [address]Performed By: #### 20001-9 #### [facility] IA [id number] [place] [address] [place] AMERICASodium [Moles/Vol]143 mmol/VXtxpko991-607 Pinole HospitalComment on above:Order Comment: Specimen Type: BLOOD SPECIMEN Ordering Facility: [facility] Address: [address] [place], [place] [address]Performed By: #### 26027-4 #### [facility] IA [id number] [place] [address] [place] AMERICAUrea nitrogen [Mass/Vol]17 mg/dLNormal 7-21Pinole HospitalComment on above:Order Comment: Specimen Type: BLOOD SPECIMEN Ordering Facility: [facility] Address: [address] [place], [place] [address]Performed By: #### 16593-4 #### [facility] IA [id number] [place] [address] [place] AMERICAEosinophils/100 WBC Auto (Bld)on 81-45-1663Ddvtevboyoz/100 WBC (Bld)Automated eosinophil %[facility] HospitalErythrocyte distribution width Auto (RBC) [Ratio]on 05-08-2024 Erythrocyte distribution width (RBC) [Ratio]Erythrocyte distribution width [Ratio] by Automated count11.5-15.0[facility] HospitalHematocrit Auto (Bld) [Volume fraction]on 95-54-0267Isybgusltl (Bld) [Volume fraction] Hematocrit [Volume Fraction] of Blood by Automated count36.0-46.0[facility] HospitalHemoglobin [Mass/volume] in Bloodon 49-69-2279Onfdfveotb (Bld) [Mass/Vol]Hemoglobin [Mass/volume] in Blood11.5-15.5FSumma Health Wadsworth - Rittman Medical CenterLaboratory - Chemistry and Chemistry - challengeon 05-08-2024 Albumin [Mass/Vol]4.4 g/dL3.9-4.9[facility]S HospitalALP [Catalytic activity/Vol]65 U/O12-087RfiltmqejDayton Children'S HospitalALT [Catalytic activity/Vol]21 U/L7-38[facility]'S HospitalAST [Catalytic activity/Vol]24 U/S53-12DezylhvvdDayton Children'S HospitalBilirubin [Mass/Vol]0.3 mg/dL0.2-1.3FSumma Health Wadsworth - Rittman Medical CenterCalcium [Mass/Vol]9.6 mg/dL 8.5-10.2FSumma Health Wadsworth - Rittman Medical CenterChloride [Moles/Vol]106 mmol/L98-107 [facility] HospitalCO2 [Moles/Vol]28 mmol/G61-88NpnzeserlDayton Children'S HospitalCreatinine [Mass/Vol]0.69 mg/dL0.58-0.96[facility] HospitalGlucose [Mass/Vol]107 mg/fZBjce07-64TztrbyzfhDayton Children'S HospitalComment on above:The [place] Diabetes Association (ADA) provides guidance for cutoff [...] hyperglycemia or hyperglycemic crisis, random plasma glucose resultsgreater than or equal to 200 mg/dL meet the criteria for diagnosis of diabetes.Reference: Standardsof Medical Care in Diabetes 2016, [place] Diabetes Association. Diabetes Care. 2016.39(Suppl 1).Potassium [Moles/Vol]4.8 mmol/L 3.7-5.1FSelect Medical Specialty Hospital - Cantonodium [Moles/Vol]143 mmol/C086-831 [facility]S HospitalUrea nitrogen [Mass/Vol]17 mg/dL7-21[facility] HospitalLaboratory - Hematology and Cell countson 05-08-2024 Eosinophils (Bld) [#/Vol]0.28 10*3/uL<0.46[facility] Immature granulocytes/100 WBC (Bld)0.2 %[facility] Leukocytes [#/volume] corrected for nucleated erythrocytes in Blood by Automated counon 24-76-9143OBU corrected for nucl RBC Auto (Bld) [#/Vol]Leukocytes [#/volume] corrected for nucleated erythrocytes in Blood by Automated coun 3.70-11.00[facility]S HospitalLymphocytes Auto (Bld) [#/Vol]on 50-57-8364Nkpdpjthhpf (Bld) [#/Vol]Lymphocytes [#/volume] in Blood by Automated count1.00-4.00[facility]S HospitalLymphocytes/100 WBC Auto (Bld)on 81-90-9769Sztwgjoyrul/100 WBC (Bld)Lymphocytes/100 leukocytes in Blood by Automated countBucyrus Community HospitalH Auto (RBC) [Entitic mass]on 80-51-3329HLO (RBC) [Entitic mass]MCH [Entitic mass] by Automated count26.0-34.0 [facility]S HospitalMCHC Auto (RBC) [Mass/Vol]on 56-11-3649CMWP (RBC) [Mass/Vol]MCHC [Mass/volume] by Automated count30.5-36.0[facility]'S HospitalMCV Auto (RBC) [Entitic vol]on 41-34-0187NCO (RBC) [Entitic vol] MCV [Entitic volume] by Automated count80.0-100.0[facility]'S HospitalMonocytes Auto (Bld) [#/Vol]on 24-44-0345Sbyaowuvn (Bld) [#/Vol]Automated blood monocyte count<0.87[facility]'S HospitalMonocytes/100 WBC Auto (Bld)on 67-96-5886Uhkoafwcs/100 WBC (Bld)Automated monocyte %[facility]'S HospitalNeutrophils Auto (Bld) [#/Vol]on 97-43-5669Dnuudkltryn (Bld) [#/Vol]Neutrophils [#/volume] in Blood by Automated count1.45-7.50[facility]'S HospitalNeutrophils/100 WBC Auto (Bld)on 05-08-2024 Neutrophils/100 WBC (Bld)Automated neutrophil %[facility] No Panel Informationon 79-97-7217Vuwxtzwhw GFR (CKD-EPI)93 mL/min/1.73m???>=60 [facility]'S HospitalComment on above:Estimated Glomerular Filtration Rate (eGFR) is calculated using the 2020 CKD-EPI creatinine equation. This equation utilizes serum creatinine, sex, and age as parameters. The creatinine assay has traceable calibration to isotope dilution-mass spectrometry. Refer to KDIGO guidelines for clinical interpretation. In patients with unstable renal function, e.g. those with acute kidney injury, the eGFRmay not accurately reflect actual GFR.Immature Granulocyte # (Auto)<0.03 k/uL<0.10 [facility]S HospitalNucleated RBC Auto (Bld) [#/Vol]on 05-08-2024 Nucleated RBC (Bld) [#/Vol]Nucleated erythrocytes [#/volume] in Blood by Automated count<0.01[facility]'S HospitalNucleated erythrocytes [Presence] in Blood by Automated counton 90-87-9455Vzqmydxmc RBC Auto Ql (Bld) Nucleated erythrocytes [Presence] in Blood by Automated countDayton Children'S HospitalPlatelet mean volume Auto (Bld) [Entitic vol]on 74-30-8539Yyjbyxjo mean volume (Bld) [Entitic vol]Platelet mean volume [Entitic volume] in Blood by Automated countLow9.0-12.7FSumma Health Wadsworth - Rittman Medical CenterPlatelets Auto (Bld) [#/Vol]on 14-51-0418Kimnvzznx (Bld) [#/Vol]Platelets [#/volume] in Blood by Automated taygn019-738EnpgmaeiuDayton Children'S HospitalProtein [Mass/volume] in Serum or Plasmaon 57-60-1946Heimlgc [Mass/Vol]Protein [Mass/volume] in Serum or Plasma6.3-8.0Day[facility] Children'S HospitalRBC Auto (Bld) [#/Vol]on 48-24-6693QSB (Bld) [#/Vol]Erythrocytes [#/volume] in Blood by Automated count 3.90-5.20[facility]sey Memorial Hospitalerum or plasma anion gap determinationon 29-03-5700Eyvtr gap [Moles/Vol]Serum or plasma anion gap determination8-[facility] Children'S HospitalMM TOMOSYNTHESIS SCREENING BI on 69-73[place] [address] Mammography Report Signed Patient: EVAN GILL MR#: [id number] : 1955 Acct:[id number] Age/Sex: 68 / F ADM Date: 04/23/24 Loc: MAMMO Attending Dr: Jairon Pisano D.O. Ordering Physician: Jairon Pisano D.O. Results: Date of Service: 04/23/24 Follow Up: Procedure(s): MM tomosynthesis screening BI Accession Number(s): [id number] cc: Jairon Pisano D.O.; CHARLES BAZZI Patient Name: EVAN GILL MR#: [id number] : 1955 Exam Date: 04/23/2024 Ordering Doctor: [...] Treatments None Family Cancers None LOCATION: [facility] BREAST COMPOSITION: There are scattered areas of [...] PALPABLE LUMP SHOULD BE BIOPSIED. Dictated by: Padmini Padilla MD on 04/23/2024 at 13:50 Approved by: Padmini Padilla MD on 04/23/2024 at 13:52 Dictated By: Padmini Padilla M.D. Signed By: 04/23/24 1354 DD/ 1353 TD/TT: Marketing Admin:TBHRadiology, Radiologist, - 04/23/2024 [place] [address] Mammography Report Signed Patient: EVAN GILL MR#: [id number] : 1955 Acct:[id number] Age/Sex: 68 / F ADM Date: 04/23/24 Loc: MAMMO Attending Dr: Jairon Pisano D.O. Ordering Physician: Jairon Pisano D.O. Results: Date of Service: 04/23/24 Follow Up: Procedure(s): MM tomosynthesis screening BI Accession Number(s): [id number] cc: Jairon Pisano D.O.; CHARLES BAZZI Patient Name: EVAN GILL MR#: [id number] : 1955 Exam Date: 04/23/2024 Ordering Doctor: [...] Treatments None Family Cancers None LOCATION: [facility] BREAST COMPOSITION: There are scattered areas of [...] PALPABLE LUMP SHOULD BE BIOPSIED. Dictated by: Padmini Padilla MD on 04/23/2024 at 13:50 Approved by: Padmini Padilla MD on 04/23/2024 at 13:52 Dictated By: Padmini Padilla M.D. Signed By: 04/23/24 3822 DD/ 909 TD/TT: Marketing Admin: [facility] HospitalRadiology Study observation (narrative)[facility] TOMOSYNTHESIS SCREENING BIOrdered By: Radiologist Radiology on 31-45-2407[facility] Work Phone: IGP,APTIMA HPV,AGE GDLNon 76-77-5258YPB GDLN ACOG TESTINGNote.[facility] HealthcareComment on above:TESTS RESULT FLAG UNITS REF RANGE LAB Clinician Provided Cytology Information Source.............Cervix;Endocervix No. of containers..01 ThinPrep Vial Age Algo ACOG Katie... Note 01 <21 or >65 or no age provided FLAG LEGEND: L-Low Normal,H-High Normal,LL-Alert Low,HH-Alert High <-Panic Low,>-Panic High,A-Abnormal,AA-Critical Abnormal Performed at: 01 =G [address] [place] [address] Macey Newell MD, PAP IG (IMAGE GUIDED)Note.[facility]OMS HealthcareComment on above:TESTS RESULT FLAG UNITS REF RANGE LAB DIAGNOSIS: 02 NEGATIVE FOR INTRAEPITHELIAL LESION OR MALIGNANCY. CELLULAR CHANGES ASSOCIATED WITH INFLAMMATION ARE PRESENT. THIS SPECIMEN WAS RESCREENED PART OF OUR CLINICAL RESEARCH MANAGER PROGRAM. Specimen adequacy: 02 Satisfactory for evaluation. Endocervical and/or squamous metaplastic cells (endocervical component) are present. Performed by: 03 Hailee Jeffery, Wireworker ([facility]) QC reviewed by: 02 Kari French, Wireworker . 02 Note: Note 02 The Pap [...] <-Panic Low,>-Panic High,A-Abnormal,AA-Critical Abnormal Performed at: 02 [address] [facility] [address] [place] [address] Macey Newell MD, 03 DIAZ [facility] [address] [place] [address] Denisa Bowden PhD, Performed at: =G - [facility] [address] [id number] Scroll Saw Operator: Macey Newell MD, Phone: [phone] Performed at: - [facility] [id number] Scroll Saw Operator: Macey Newell MD, Phone: [phone] BRUSH-SPATULA CERVIX ENDOCERVIX [facility] metabolic 2000 panelon 33-65-4363Lydod gap [Moles/Vol]11 mmol/LNormal9-18Fcentral hospital HospitalComment on above:Order Comment: Specimen Type: BLOOD SPECIMENOrdering Facility: [facility] Address:[address] [place], [place] [address]Performed By: #### 00402-8, 2776-07, ####[facility] LABORATORYCLIA [id number] [place] [address] [place] AMERICACalcium [Mass/Vol]9.0 mg/dLNormal8.5-10.2Fcentral hospital HospitalComment on above:Order Comment: Specimen Type: BLOOD SPECIMENOrdering Facility: [facility] Address:[address] [place], [place] [address]Performed By: #### 79565-2, 2776-07, ####[facility] LABORATORYCLIA [id number] [place] [address] [place] Chloride [Moles/Vol]102 mmol/CYjdrer20-535Bwtowbaq HospitalComment on above: Order Comment: Specimen Type: BLOOD SPECIMENOrdering Facility: [facility] Address:[address] [place], [place] [address]Performed By: #### 88759- 2, 2776-07, ####[facility] LABORATORYCLIA [id number] [place] [address] [place] AMERICACO2 [Moles/Vol]28 mmol/GVxctbi94-71 [facility] HospitalComment on above:Order Comment: Specimen Type: BLOOD SPECIMENOrdering Facility: [facility] Address:[address] [place], [place] [address]Performed By: #### 51896-0, 27701-07, ####[facility] LABORATORYCLIA [id number] [place] [id number] [place] AMERICACreatinine [Mass/Vol]0.60 mg/dLNormal0.58-0.96[facility] Medical CenterComment on above:Order Comment: Specimen Type: BLOOD SPECIMENOrdering Facility: [facility] Address:[address] [place] [address] Performed By: #### 95735-8, 2776-07, ####[facility] LABORATORYCLIA [id number] [place] [id number] [place] Creatinine and Glomerular filtration rate.predicted panel (S/P/Bld)97 mL/min/1.73m???Normal>=60FaSaints Medical CenterComment on above:Order Comment: Specimen Type: BLOOD SPECIMENOrdering Facility: [facility] Address:[address] [place], [place] [address]Result Comment: Estimated Glomerular Filtration Rate (eGFR) is calculated using the 2020 CKD-EPI creatinine equation. This equation utilizes serum creatinine, sex, and age as parameters. The creatinine assay has traceable calibration to isotope dilution-mass spectrometry. Refer to KDIGO guidelines for clinical interpretation. In patients with unstable renal function, e.g. those with acute kidney injury, the eGFR may not accurately reflect actual GFR.Performed By: #### 59037-5, 2776-07, ####[facility] LABORATORYCLIA [id number] [place] [id number] [place] AMERICAGlucose [Mass/Vol]101 mg/qDLyvs70-03Pfpzlfdp Hospital Comment on above:Order Comment: Specimen Type: BLOOD SPECIMENOrdering Facility: [facility] Address:[address] [place], [place] [address]Result Comment: The [place] Diabetes Association (ADA) provides guidance for cutoff values for fasting glucose and random glucose. The ADA defines fasting as no caloric intake for at least 8 hours. Fasting plasma glucose results between 100 to 125 mg/dL indicate increased risk for diabetes (prediabetes).Fasting plasma glucose results greater than or equal to 126 mg/dL meet the criteria for diagno sis of diabetes. In the absence of unequivocal hyperglycemia, results should be confirmed by repeattesting. In a patient with classic symptoms of hyperglycemia or hyperglycemic crisis, random plasmaglucose results greater than or equal to 200 mg/dL meet the criteria for diagnosis of diabetes.Reference: Standards of Medical Care in Diabetes 2016, [place] Diabetes Association. Diabetes Care. 2016.39(Suppl 1).Performed By: #### 16077-8, 2776-07, ####[facility] LABORATORYCLIA [id number] [place] [id number] [place] AMERICAPotassium [Moles/Vol]3.5 mmol/LLow3.7-5.1Fcentral hospital HospitalComment on above:Order Comment: Specimen Type: BLOOD SPECIMENOrdering Facility: [facility] Address:[address] [place], [place] [address]Performed By: #### 76227-7, 2776-07, ####[facility] LABORATORYCLIA [id number] [place] [id number] [place] AMERICASodium [Moles/Vol]141 mmol/L Yhrzbd291-316Zeyhtwed HospitalComment on above:Order Comment: Specimen Type: BLOOD SPECIMENOrdering Facility: [facility] Address:[address] [place], [place] [address]Performed By: #### 04819-4, 2776-07, ####[facility] LABORATORYCLIA [id number] [place] [id number] [place] AMERICAUrea nitrogen [Mass/Vol]8 mg/dLNormal7-21FaSaints Medical CenterComment on above:Order Comment: Specimen Type: BLOOD SPECIMENOrdering Facility: [facility] Address:[address] [place], [place] [address]Performed By: #### 65662-0, 2776-07, ####[facility] LABORATORYCLIA [id number] [address]CBC panel Auto (Bld)on 42-16-9321Astmkaguwpw distribution width (RBC) [Ratio]13.8 % Fjxdcb82.5-15.0Fabaystate noble hospital HospitalComment on above:Order Comment: Specimen Type: BLOOD SPECIMENOrdering Facility: [facility] Address:[address] [place] [address]Performed By: #### 27703-2 ####CORNELIUS LABORATORYCLIA [id number] [address] Hematocrit (Bld) [Volume fraction]32.4 %Low36.0-46.0[facility] HospitalComment on above:Order Comment: Specimen Type: BLOOD SPECIMENOrdering Facility: [facility] Address:[address] [place], [place] [address]Performed By: #### 58680-8 ####CORNELIUS LABORATORYCLIA [id number] [address]ETHemoglobin (Bld) [Mass/Vol]10.7 g/dLLow11.5-15.5 [facility] HospitalComment on above:Order Comment: Specimen Type: BLOOD SPECIMENOrdering Facility: [facility] Address:[address] [place], [place] [address]Performed By: #### 30219-0 ####CORNELIUS LABORATORYCLIA [id number] [address] (RBC) [Entitic mass]29.6 tqBsalde22.0-34.0Fabay[facility] hospital HospitalComment on above: Order Comment: Specimen Type: BLOOD SPECIMENOrdering Facility: [facility] Address:[address] [place], [place] [address]Performed By: #### 98110- 2 ####CORNELIUS LABORATORYCLIA [id number] [address]ETMCHC (RBC) [Mass/Vol]33.0 g/iPRdtybd71.5-36.0[facility] HospitalComment on above:Order Comment: Specimen Type: BLOOD SPECIMENOrdering Facility: [facility] Address:[address] [place], [place] [address]Performed By: #### 68364-7 ####VIPINLISSETH LABORATORYCLIA [id number] [place] [id number] [facility]ENTERMCV (RBC) [Entitic vol] 89.5 pBWwbjsg94.0-100.0[facility]ay[facility] HospitalComment on above:Order Comment: Specimen Type: BLOOD SPECIMENOrdering Facility: [facility] Address:[address] [place], [place] [address]Performed By: #### 74160-7 ####CORNELIUS LABORATORYCLIA [id number] [place] [id number] [facility] ALABAMAucleated RBC (Bld) [#/Vol]10*3/uLNormal<0.01[facility] HospitalComment on above:Order Comment: Specimen Type: BLOOD SPECIMENOrdering Facility: [facility] Address:[address] [place], [place] [address]Performed By: #### 95084-9 ####CORNELIUS LABORATORYCLIA [id number] [place] [id number] [facility]ICAL CENTERPlatelet mean volume (Bld) [Entitic vol]8.8 fLLow 9.0-12.7Fcentral hospital HospitalComment on above:Order Comment: Specimen Type: BLOOD SPECIMENOrdering Facility: [facility] Address:[address] [place], [place] [address]Performed By: #### 75676-9 ####CORNELIUS LABORATORYCLIA [id number] [place] [id number] [facility] Platelets (Bld) [#/Vol]285 10*3/qHHmcrvp616-002Wvaoplbg HospitalComment on above:Order Comment: Specimen Type: BLOOD SPECIMENOrdering Facility: [facility] Address:[address] [place], [place] [address]Performed By: #### 59872-3 ####CORNELIUS LABORATORYCLIA [id number] [place] [id number] [place] OF AMERICARBC (Bld) [#/Vol]3.62 10*6/uLLow3.90-5.20[facility] HospitalComment on above:Order Comment: Specimen Type: BLOOD SPECIMENOrdering Facility: [facility] Address:[address] [place], [place] [address]Performed By: #### 43391-6 ####CORNELIUS LABORATORYCLIA [id number] [place] [id number] [place] AMERICAWBC (Bld) [#/Vol]7.91 10*3/uLNormal3.70-11.00[facility] HospitalComment on above:Order Comment: Specimen Type: BLOOD SPECIMENOrdering Facility: [facility] Address:[address] [place], [place] [address]Performed By: #### 40371-0 ####CORNELIUS LABORATORYCLIA [id number] [place] [address] [place] AMERICAMagnesium SerPl-mCncon 61-05-3396Wmxtlvobp [Mass/Vol]1.9 mg/dLNormal 1.7-2.3Fcentral hospital HospitalComment on above:Order Comment: Specimen Type: BLOOD SPECIMENOrdering Facility: [facility] Address:[address] [place], [place] [address]Performed By: #### 98667-4, 2776-07, ####CORNELIUS LABORATORYCLIA [id number] [place] [id number] [place] AMERICAPhosphate SerPl-mCncon 94-16-9132Nghsrfueb [Mass/Vol]3.0 mg/dLNormal 2.7-4.8[facility] HospitalComment on above:Order Comment: Specimen Type: BLOOD SPECIMENOrdering Facility: [facility] Address:[address] [place], [place] [address]Performed By: #### 83203-4, 27701-07, ####CORNELIUS LABORATORYCLIA [id number] [place] [id number] [place] OF AMERICABasic metabolic 2000 panelon 56-74-8669Mbxsk gap [Moles/Vol]12 mmol/L Normal9-18[facility] HospitalComment on above:Order Comment: Specimen Type: BLOOD SPECIMENOrdering Facility: [facility] Address:[address] [place], [place] [address]Performed By: #### 2777-1, , ####CORNELIUS LABORATORYCLIA [id number] [place] [id number] [place] AMERICACalcium [Mass/Vol]9.3 mg/dLNormal8.5-10.2Fcentral hospital HospitalComment on above:Order Comment: Specimen Type: BLOOD SPECIMENOrdering Facility: [facility] Address:[address] [place], [place] [address]Performed By: #### 2777-1, , ####CORNELIUS LABORATORYCLIA [id number] [place] [address] [place] AMERICAChloride [Moles/Vol]100 mmol/L Fjlyjl78-542Kqxhaasz HospitalComment on above:Order Comment: Specimen Type: BLOOD SPECIMENOrdering Facility: [facility] Address:[address] [place], [place] [address]Performed By: #### 2777-1, , ####CORNELIUS LABORATORYCLIA [id number] [place] [id number] [place] AMERICACO2 [Moles/Vol]27 mmol/CLlfjlg63-67Igingxgj Hospital Comment on above:Order Comment: Specimen Type: BLOOD SPECIMENOrdering Facility: [facility] Address:[address] [place] [address] Performed By: #### 2777-1, , ####CORNELIUS LABORATORYCLIA [id number] [place] [id number] [place] Creatinine [Mass/Vol]0.64 mg/dLNormal0.58-0.96FaSaints Medical CenterComment on above: Order Comment: Specimen Type: BLOOD SPECIMENOrdering Facility: [facility] Address:[address] [place], [place] [address]Performed By: #### 2777- 1, 22768-3, 96887-7 ####CORNELIUS LABORATORYCLIA [id number] [place] [address] [place] AMERICACreatinine and Glomerular filtration rate.predicted panel (S/P/Bld)95 mL/min/1.73m???Normal>=60[facility] on above:Order Comment: Specimen Type: BLOOD SPECIMENOrdering Facility: [facility] Address:[address] [place], [place] [address]Result Comment: Estimated Glomerular Filtration Rate (eGFR) is [...] accurately reflect actual GFR. Performed By: #### 2777-1, 99107-2, 36812-8 ####CORNELIUS LABORATORYCLIA [id number] [place] [id number] [place] AMERICAGlucose [Mass/Vol]122 mg/pMGlxc69-54Xnexpjoj46 Alvarez StreetComment on above:Order Comment: Specimen Type: BLOOD SPECIMENOrdering Facility: [facility] Address:[address] [place] [address] Comment: The [place] Diabetes Association (ADA) provides guidance for cutoff [...] symptoms of hyperglycemia or hyperglycemic crisis, random plasmaglucose results greater than or equal to 200 mg/dL meet the criteria for diagnosis of diabetes.Reference: Standards of Medical Care in Diabetes 2016, [place] Diabetes Association. Diabetes Care. 2016.39(Suppl 1). Performed By: #### 2777-1, 56966-8, 56513-9 ####CORNELIUS LABORATORYCLIA [id number] [place] [address] [place] Potassium [Moles/Vol]3.9 mmol/LNormal3.7-5.1Fcentral hospital HospitalComment on above: Order Comment: Specimen Type: BLOOD SPECIMENOrdering Facility: [facility] Address:[address] [place], [place] [address]Performed By: #### 2777- 1, , 63837-9 ####CORNELIUS LABORATORYCLIA [id number] [address]ETSodium [Moles/Vol]139 mmol/LNormal 136-144[facility] HospitalComment on above:Order Comment: Specimen Type: BLOOD SPECIMENOrdering Facility: [facility] Address:[address] [place], [place] [address]Performed By: #### 2777-1, , ####[facility] LABORATORYCLIA [id number] [place] [address] [place] AMERICAUrea nitrogen [Mass/Vol]8 mg/dLNormal7-21[facility] HospitalComment on above:Order Comment: Specimen Type: BLOOD SPECIMENOrdering Facility: [facility] Address:[address] [place], [place] [address]Performed By: #### 2777-1, , ####[facility] LABORATORYCLIA [id number] [place] [address] [place] AMERICACASE MGT INIT ASSESon 44-30-3453LFNV MGT INIT ASSESNormalHeywood Hospital panel Auto (Bld)on 20-37-4279Hythkyerwop distribution width (RBC) [Ratio]13.5 %Gleaiq21.5-15.0 [facility] CenterComment on above:Order Comment: Specimen Type: BLOOD SPECIMENOrdering Facility: [facility] Address:[address] [place], [place] [address]Performed By: #### 53596-5 ####[facility] LABORATORYCLIA [id number] [place] [address] [place] Hematocrit (Bld) [Volume fraction]32.2 %Low36.0-46.0[facility] HospitalComment on above:Order Comment: Specimen Type: BLOOD SPECIMENOrdering Facility: [facility] Address:[address] [place], [place] [address]Performed By: #### 75382-1 ####CORNELIUS LABORATORYCLIA [id number] [place] [address] [facility] CENTERHemoglobin (Bld) [Mass/Vol]11.2 g/dLLow11.5-15.5 [facility] HospitalComment on above:Order Comment: Specimen Type: BLOOD SPECIMENOrdering Facility: [facility] Address:[address] [place], [place] [address]Performed By: #### 35083-9 ####CORNELIUS LABORATORYCLIA [id number] [address] (RBC) [Entitic mass]30.4 lcEcseua75.0-34.0Fabay[facility] HospitalComment on above: Order Comment: Specimen Type: BLOOD SPECIMENOrdering Facility: [facility] Address:[address] [place], [place] [address]Performed By: #### 68589- 2 ####CORNEL[facility] LABORATORYCLIA [id number] [address]ETMCHC (RBC) [Mass/Vol]34.8 g/cSQlcdjb58.5-36.0[facility] HospitalComment on above:Order Comment: Specimen Type: BLOOD SPECIMENOrdering Facility: [facility] Address:[address] [place], [place] [address]Performed By: #### 75015-4 ####CORNELIUS LABORATORYCLIA [id number] [place] [address] [facility] (RBC) [Entitic vol] 87.5 gAKbmiim85.0-100.0[facility] HospitalComment on above:Order Comment: Specimen Type: BLOOD SPECIMENOrdering Facility: [facility] Address:[address] [place], [place] [address]Performed By: #### 97213-8 ####CORNELIUS LABORATORYCLIA [id number] [place] [id number] [place] AMERICANucleated RBC (Bld) [#/Vol]10*3/uLNormal<0.01[facility] HospitalComment on above:Order Comment: Specimen Type: BLOOD SPECIMENOrdering Facility: [facility] Address:[address] [place], [place] [address]Performed By: #### 87744-7 ####CORNELIUS LABORATORYCLIA [id number] [place] [id number] [place] AMERICAPlatelet mean volume (Bld) [Entitic vol]8.3 fLLow 9.0-12.7Fcentral hospital HospitalComment on above:Order Comment: Specimen Type: BLOOD SPECIMENOrdering Facility: [facility] Address:[address] [place], [place] [address]Performed By: #### 57470-5 ####CORNELIUS LABORATORYCLIA [id number] [place] [id number] [place] Platelets (Bld) [#/Vol]270 10*3/oFWghucd432-624Qbhfatxc HospitalComment on above:Order Comment: Specimen Type: BLOOD SPECIMENOrdering Facility: [facility] Address:[address] [place], [place] [address]Performed By: #### 45428-7 ####CORNELIUS LABORATORYCLIA [id number] [place] [id number] [place] AMERICARBC (Bld) [#/Vol]3.68 10*6/uLLow3.90-5.20[facility] HospitalComment on above:Order Comment: Specimen Type: BLOOD SPECIMENOrdering Facility: [facility] Address:[address] [place], [place] [address]Performed By: #### 47769-1 ####VIPINLISSETH LABORATORYCLIA [id number] [place] [id number] [place] AMERICAWBC (Bld) [#/Vol]8.53 10*3/uLNormal3.70-11.00[facility] HospitalComment on above:Order Comment: Specimen Type: BLOOD SPECIMENOrdering Facility: [facility] Address:[address] [place], [place] [address]Performed By: #### 17773-0 ####CORNELIUS LABORATORYCLIA [id number] [address] STATES OF AMERICACNDSon 57-43-8022ZRESHxrxvvCiwtlade HospitalMagnesium SerPl-mCncon 18-26-4984Thmjvicwv [Mass/Vol]1.6 mg/dLLow1.7-2.3Fcentral hospital HospitalComment on above:Order Comment: Specimen Type: BLOOD SPECIMENOrdering Facility: [facility] Address:[address] [place], [place] [address]Performed By: #### 2777-1, 06745-0, 89630-4 ####CORNELIUS LABORATORYCLIA [id number] [address] STATES OF AMERICAPT EDon 34-86-9692QR EDNormal [facility]falls HospitalPhosphate SerPl-mCncon 83-45-8458Xlvhiulrt [Mass/Vol]2.5 mg/dL Low2.7-4.8[facility] HospitalComment on above:Order Comment: Specimen Type: BLOOD SPECIMENOrdering Facility: [facility] Address:[address] [place], [place] [address]Performed By: #### 2777-1, 18475-7, 61892-5 ####CORNELIUS LABORATORYCLIA [id number] [address] STATES OF AMERICAANES POSTPROC EVALon 71-40-0719ZOSC POSTPROC EVALNormGoddard Memorial Hospital Hospital ANES PRE-OPon 96-72-3595ZGQP PRE-OPNormalFabaystate noble hospital HospitalBRIEF OP NOTon 78-56-1699QNLGE OP NOTNormGoddard Memorial Hospital HospitalBasic metabolic 2000 panelon 56-59-6327Lymxj gap [Moles/Vol]21 mmol/LHigh9-18Fcentral hospital HospitalComment on above:Order Comment: Specimen Type: BLOOD SPECIMENOrdering Facility: [facility] Address:[address] [place], [place] [address]Performed By: #### HSTNT, 15066-4 ####CORNELIUS LABORATORYCLIA [id number] [place] [id number] [place] AMERICACalcium [Mass/Vol]8.7 mg/dL Normal8.5-10.2Fcentral hospital HospitalComment on above:Order Comment: Specimen Type: BLOOD SPECIMENOrdering Facility: [facility] Address:[address] [place], [place] [address]Performed By: #### HSTNT, 20724-7 ####CORNELIUS LABORATORYCLIA [id number] [place] [id number] [place] AMERICAChloride [Moles/Vol]100 mmol/KSsheeg00-349Jwgvxdky HospitalComment on above:Order Comment: Specimen Type: BLOOD SPECIMENOrdering Facility: [facility] Address:[address] [place], [place] [address]Performed By: #### HSTNT, 15526-9 ####CORNELIUS LABORATORYCLIA [id number] [place] [address] [place] AMERICACO2 [Moles/Vol]15 mmol/LLow 22-30[facility] HospitalComment on above:Order Comment: Specimen Type: BLOOD SPECIMENOrdering Facility: [facility] Address:[address] [place], [place] [address]Performed By: #### HSTNT, 27143-7 ####CORNELIUS LABORATORYCLIA [id number] [place] [id number] [place] Creatinine [Mass/Vol]0.63 mg/dLNormal0.58-0.96[facility] HospitalComment on above: Order Comment: Specimen Type: BLOOD SPECIMENOrdering Facility: [facility] Address:[address] [place], [place] [address]Performed By: #### HSTNT, 63064-3 ####CORNELIUS LABORATORYCLIA [id number] [place] [id number] [place] AMERICACreatinine and Glomerular filtration rate.predicted panel (S/P/Bld)96 mL/min/1.73m???Normal>=60[facility] Comment on above:Order Comment: Specimen Type: BLOOD SPECIMENOrdering Facility: [facility] Address:[address] [place], [place] [address]Mxjjxl Comment: Estimated Glomerular Filtration Rate (eGFR) is calculated using the 2020 CKD-EPI creatinine equation. This equation utilizes serum creatinine, sex, and age as parameters. The creatinine assay has traceable calibration to isotope dilution-mass spectrometry. Refer to KDIGO guidelines for clinical interpretation. In patients with unstable renal function, e.g. those with acute kidney injury, the eGFR may not accurately reflect actual GFR.Performed By: #### HSTNT, 38436-6 ####CORNELIUS LABORATORYCLIA [id number] [place] [id number] [place] AMERICAGlucose [Mass/Vol]96 mg/dL Tcifdx28-47Picwffag HospitalComment on above:Order Comment: Specimen Type: BLOOD SPECIMENOrdering Facility: [facility] Address:[address] [place], [place] [address]Mjfwze Comment: The [place] Diabetes Association (ADA) provides guidance for cutoff [...] unequivocal hyperglycemia, results should be confirmed by repeattesting. In a patient with classic symptoms of hyperglycemia or hyperglycemic crisis, random plasmaglucose results greater than or equal to 200 mg/dL meet the criteria for diagnosis of diabetes.Reference: Standards of Medical Care in Diabetes 2016, [place] Diabetes Association. Diabetes Care. 2016.39(Suppl 1).Performed By: #### HSTNT, 27570-8 ####CORNELIUS LABORATORYCLIA [id number] [place] [id number] [place] AMERICAPotassium [Moles/Vol]3.7 mmol/LNormal3.7-5.1 [facility] CenterComment on above:Order Comment: Specimen Type: BLOOD SPECIMENOrdering Facility: [facility] Address:[address] [place], [place] [address]Sjdlegqxs By: #### ELIANENT, 03974-9 ####CORNELIUS LABORATORYCLIA [id number] [place] [address] [place] AMERICASodium [Moles/Vol]136 mmol/ENkuqwe510-284Heolzwoz HospitalComment on above:Order Comment: Specimen Type: BLOOD SPECIMENOrdering Facility: [facility] Address:[address] [place], [place] [address]Performed By: #### JOSH, 04532-9 ####CORNELIUS LABORATORYCLIA [id number] [place] [id number] [place] AMERICAUrea nitrogen [Mass/Vol]18 mg/dLNormal7-21Fabay[facility] HospitalComment on above:Order Comment: Specimen Type: BLOOD SPECIMENOrdering Facility: [facility] Address:[address] [place], [place] [address]Performed By: #### JOSH, ####CORNELIUS LABORATORYCLIA [id number] [place] [address] [place] AMERICAAnion gap [Moles/Vol]19 mmol/LHigh9-18Fcentral hospital HospitalComment on above:Order Comment: Specimen Type: BLOOD SPECIMENOrdering Facility: [facility] Address:[address] [place], [place] [address]Performed By: #### 07906-9, 2776-07, ####CORNELIUS LABORATORYCLIA [id number] [place] [id number] [place] AMERICACalcium [Mass/Vol]8.7 mg/dLNormal8.5-10.2Fcentral hospital HospitalComment on above:Order Comment: Specimen Type: BLOOD SPECIMENOrdering Facility: [facility] Address:[address] [place], [place] [address]Performed By: #### 25021-6, 2776-07, ####CORNELIUS LABORATORYCLIA [id number] [place] [id number] [place] Chloride [Moles/Vol]105 mmol/SHfubxh78-139Neykoqcp HospitalComment on above: Order Comment: Specimen Type: BLOOD SPECIMENOrdering Facility: [facility] Address:[address] [place], [place] [address]Performed By: #### 22868- 2, 2776-07, ####CORNELIUS LABORATORYCLIA [id number] [place] [id number] [place] AMERICACO2 [Moles/Vol]18 mmol/GEia69-17 [facility] on above:Order Comment: Specimen Type: BLOOD SPECIMENOrdering Facility: [facility] Address:[address] [place], [place] [address]Performed By: #### 14796-4, 2776-07, ####CORNELIUS LABORATORYCLIA [id number] [place] [address] [place] [facility] CENTERCreatinine [Mass/Vol]0.76 mg/dLNormal0.58-0.96[facility] on above:Order Comment: Specimen Type: BLOOD SPECIMENOrdering Facility: [facility] Address:[address] [place] [address] Performed By: #### 80908-8, 2776-07, ####CORNELIUS LABORATORYCLIA [id number] [address] [place] Creatinine and Glomerular filtration rate.predicted panel (S/P/Bld)84 mL/min/1.73m???Normal>=60[facility] on above:Order Comment: Specimen Type: BLOOD SPECIMENOrdering Facility: [facility] Address:[address] [place], [place] [address]Result Comment: Estimated Glomerular Filtration Rate (eGFR) is calculated using the 2020 CKD-EPI creatinine equation. This equation utilizes serum creatinine, sex, and age as parameters. The creatinine assay has traceable calibration to isotope dilution-mass spectrometry. Refer to KDIGO guidelines for clinical interpretation. In patients with unstable renal function, e.g. those with acute kidney injury, the eGFR may not accurately reflect actual GFR.Performed By: #### 31985-9, 27701-07, ####CORNELIUS LABORATORYCLIA [id number] [place] [id number] [place] AMERICAGlucose [Mass/Vol]57 mg/gFXoy13-94Bmraqmoq Hospital Comment on above:Order Comment: Specimen Type: BLOOD SPECIMENOrdering Facility: [facility] Address:[address] [place], [place] [address]Result Comment: The [place] Diabetes Association (ADA) provides guidance for cutoff values for fasting glucose and random glucose. The ADA defines fasting as no caloric intake for at least 8 hours. Fasting plasma glucose results between 100 to 125 mg/dL indicate increased risk for diabetes (prediabetes).Fasting plasma glucose results greater than or equal to 126 mg/dL meet the criteria for diagno sis of diabetes. In the absence of unequivocal hyperglycemia, results should be confirmed by repeattesting. In a patient with classic symptoms of hyperglycemia or hyperglycemic crisis, random plasmaglucose results greater than or equal to 200 mg/dL meet the criteria for diagnosis of diabetes.Reference: Standards of Medical Care in Diabetes 2016, [place] Diabetes Association. Diabetes Care. 2016.39(Suppl 1).Performed By: #### 29456-4, 2776-07, ####CORNELIUS LABORATORYCLIA [id number] [place] [id number] [place] AMERICAPotassium [Moles/Vol]4.3 mmol/LNormal3.7-5.1FCharlton Memorial HospitalComment on above:Order Comment: Specimen Type: BLOOD SPECIMENOrdering Facility: [facility] Address:[address] [place], [place] [address]Performed By: #### 36286-0, 27701-07, ####CORNELIUS LABORATORYCLIA [id number] [place] [id number] [place] AMERICASodium [Moles/Vol]142 mmol/L Wejdqz916-701Tqzzblro HospitalComment on above:Order Comment: Specimen Type: BLOOD SPECIMENOrdering Facility: [facility] Address:[address] [place], [place] [address]Performed By: #### 52935-2, 27701-07, ####[facility] LABORATORYCLIA [id number] [place] [address] [place] AMERICAUrea nitrogen [Mass/Vol]20 mg/dLNormal7-21[facility] HospitalComment on above:Order Comment: Specimen Type: BLOOD SPECIMENOrdering Facility: [facility] Address:[address] [place], [place] [address]Performed By: #### 38044-2, 2777-1, 30413-1 ####CORNELIUS LABORATORYCLIA [id number] [place] [id number] [place] [facility] MED[facility] CENTERCBC W Auto Differential panel (Bld)on 88-71-2711Pllsvrvew (Bld) [#/Vol]10*3/uLNormal <0.11[facility] HospitalComment on above:Order Comment: Specimen Type: BLOOD SPECIMENOrdering Facility: [facility] Address:[address] [place], [place] [address]Performed By: #### 74705-2 ####CORNELIUS LABORATORYCLIA [id number] [place] [id number] [place] Basophils/100 WBC (Bld)0.2 %NormalGrandfalls HospitalComment on above:Order Comment: Specimen Type: BLOOD SPECIMENOrdering Facility: [facility] Address:[address] [place], [place] [address]Performed By: #### [id number] ####[facility] LABORATORYCLIA [id number] [place] [address] [place] [facility] MED[facility] CENTERDifferential cell count method Nom (Bld)AutoNormal Grandfalls HospitalComment on above:Order Comment: Specimen Type: BLOOD SPECIMENOrdering Facility: [facility] Address:[address] [address] [place], [place] [address]Performed By: #### 21663-8 ####CORNELIUS LABORATORYCLIA [id number] [place] [id number] [place] Eosinophils (Bld) [#/Vol]10*3/uLNormal<0.46Fabaystate noble hospital HospitalComment on above: Order Comment: Specimen Type: BLOOD SPECIMENOrdering Facility: [facility] Address:[address] [place], [place] [address]Performed By: #### 83070- 8 ####CORNELIUS LABORATORYCLIA [id number] [place] [id number] [place] AMERICAEosinophils/100 WBC (Bld)0.0 %NormalGrandfalls Hospital Comment on above:Order Comment: Specimen Type: BLOOD SPECIMENOrdering Facility: [facility] Address:[address] [place] [address] Performed By: #### 22619-1 ####CORNELIUS LABORATORYCLIA [id number] [place] [address] [place] AMERICAErythrocyte distribution width (RBC) [Ratio]13.3 %Znramw69.5-15.0Fabaystate noble hospital HospitalComment on above:Order Comment: Specimen Type: BLOOD SPECIMENOrdering Facility: [facility] Address:[address] [place], [place] [address]Performed By: #### 57440- 8 ####CORNELIUS LABORATORYCLIA [id number] [place] [id number] [place] AMERICAHematocrit (Bld) [Volume fraction]31.6 %Low36.0-46.0 [facility] HospitalComment on above:Order Comment: Specimen Type: BLOOD SPECIMENOrdering Facility: [facility] Address:[address] [place], [place] [address]Performed By: #### 15106-2 ####CORNELIUS LABORATORYCLIA [id number] [place] [id number] [place] Hemoglobin (Bld) [Mass/Vol]10.9 g/dLLow11.5-15.5Fcentral hospital HospitalComment on above:Order Comment: Specimen Type: BLOOD SPECIMENOrdering Facility: [facility] Address:[address] [place], [place] [address]Performed By: #### 29779-2 ####CORNELIUS LABORATORYCLIA [id number] [place] [id number] [place] AMERICAImmature granulocytes (Bld) [#/Vol]0.06 10*3/uL Normal<0.10Fabaystate noble hospital HospitalComment on above:Order Comment: Specimen Type: BLOOD SPECIMENOrdering Facility: [facility] Address:[address] [place], [place] [address]Performed By: #### 29641-9 ####CORNELIUS LABORATORYCLIA [id number] [place] [address] [place] Immature granulocytes/100 WBC (Bld)0.6 %NormalGrandfalls HospitalComment on above: Order Comment: Specimen Type: BLOOD SPECIMENOrdering Facility: [facility] Address:[address] [place], [place] [address]Performed By: #### 82750- 8 ####CORNELIUS LABORATORYCLIA [id number] [place] [id number] [place] [facility] MEDICAL CENTERLymphocytes (Bld) [#/Vol]0.48 10*3/uLLow1.00-4.00 [facility] HospitalComment on above:Order Comment: Specimen Type: BLOOD SPECIMENOrdering Facility: [facility] Address:[address] [place], [place] [address]Performed By: #### 10991-1 ####CORNELIUS LABORATORYCLIA [id number] [place] [address] [place] Lymphocytes/100 WBC (Bld)4.5 %NormalGrandfalls HospitalComment on above:Order Comment: Specimen Type: BLOOD SPECIMENOrdering Facility: [facility] Address:[address] [place], [place] [address]Performed By: #### 06335- 8 ####CORNELIUS LABORATORYCLIA [id number] [place] [id number] [facility] (RBC) [Entitic mass]30.3 lmLutcxo33.0-34.0Fabaystate noble hospital HospitalComment on above:Order Comment: Specimen Type: BLOOD SPECIMENOrdering Facility: [facility] Address:[address] [place], [place] [address]Performed By: #### 39597-2 ####CORNELIUS LABORATORYCLIA [id number] [address] (RBC) [Mass/Vol] 34.5 g/rOZgscdo31.5-36.0Fairview HospitalComment on above:Order Comment: Specimen Type: BLOOD SPECIMENOrdering Facility: [facility] Address:[address] [place], [place] [address]Performed By: #### 70054-2 ####CORNELIUS LABORATORYCLIA [id number] [place] [address] [place] AMERICAMCV (RBC) [Entitic vol]87.8 mMAnprvx69.0-100.0[facility] HospitalComment on above:Order Comment: Specimen Type: BLOOD SPECIMENOrdering Facility: [facility] Address:[address] [place], [place] [address]Performed By: #### 64227-4 ####CORNELIUS LABORATORYCLIA [id number] [place] [address] [place] AMERICAMonocytes (Bld) [#/Vol] 0.33 10*3/uLNormal<0.87Fabay[facility] hospital HospitalComment on above:Order Comment: Specimen Type: BLOOD SPECIMENOrdering Facility: [facility] Address:[address] [place], [place] [address]Performed By: #### 46464-7 ####CORNELIUS LABORATORYCLIA [id number] [place] [id number] [place] AMERICAMonocytes/100 WBC (Bld)3.1 %NormalGrandfalls HospitalComment on above: Order Comment: Specimen Type: BLOOD SPECIMENOrdering Facility: [facility] Address:[address] [place], [place] [address]Performed By: #### 71461- 8 ####CORNELIUS LABORATORYCLIA [id number] [place] [id number] [place] AMERICANeutrophils (Bld) [#/Vol]9.79 10*3/uLHigh1.45-7.50 [facility] HospitalComment on above:Order Comment: Specimen Type: BLOOD SPECIMENOrdering Facility: [facility] Address:[address] [place], [place] [address]Performed By: #### 61720-5 ####CORNELIUS LABORATORYCLIA [id number] [place] [address] [place] Neutrophils/100 WBC (Bld)91.6 %NormalGrandfalls HospitalComment on above:Order Comment: Specimen Type: BLOOD SPECIMENOrdering Facility: [facility] Address:[address] [place], [place] [address]Performed By: #### 63830- 8 ####CORNELIUS LABORATORYCLIA [id number] [place] [id number] [place] AMERICANucleated RBC (Bld) [#/Vol]10*3/uLNormal<0.01[facility] HospitalComment on above:Order Comment: Specimen Type: BLOOD SPECIMENOrdering Facility: [facility] Address:[address] [place], [place] [address]Performed By: #### 86824-7 ####CORNELIUS LABORATORYCLIA [id number] [place] [address] [place] AMERICANucleated RBC/100 WBC (Bld) [Ratio]0.0 /100 WBCNormalGrandfalls HospitalComment on above:Order Comment: Specimen Type: BLOOD SPECIMENOrdering Facility: [facility] Address:[address] [place], [place] [address]Performed By: #### 68595-6 ####CORNELIUS LABORATORYCLIA [id number] [place] [address] [place] AMERICAPlatelet mean volume (Bld) [Entitic vol]8.3 fLLow 9.0-12.7Fcentral hospital HospitalComment on above:Order Comment: Specimen Type: BLOOD SPECIMENOrdering Facility: [facility] Address:[address] [place], [place] [address]Performed By: #### 61907-9 ####CORNELIUS LABORATORYCLIA [id number] [place] [id number] [place] Platelets (Bld) [#/Vol]251 10*3/dAReqmbf310-289Xojbnjyu HospitalComment on above:Order Comment: Specimen Type: BLOOD SPECIMENOrdering Facility: [facility] Address:[address] [place], [place] [address]Performed By: #### 49568-6 ####CORNELIUS LABORATORYCLIA [id number] [place] [id number] [facility] CENTERRBC (Bld) [#/Vol]3.60 10*6/uLLow3.90-5.20Fabay[facility] hospital HospitalComment on above:Order Comment: Specimen Type: BLOOD SPECIMENOrdering Facility: [facility] Address:[address] [place], [place] [address]Performed By: #### 26683-7 ####CORNELIUS LABORATORYCLIA [id number] [place] [address] [facility] CENTERWBC (Bld) [#/Vol]10.68 10*3/uLNormal3.70-11.00Fabay[facility] hospital HospitalComment on above:Order Comment: Specimen Type: BLOOD SPECIMENOrdering Facility: [facility] Address:[address] [place], [place] [address]Performed By: #### 63642-9 ####CORNELIUS LABORATORYCLIA [id number] [place] [id number] [facility] CENTERCBC panel Auto (Bld)on 29-32-3603Rkfgkmryngb distribution width (RBC) [Ratio]13.7 %Ncurjp12.5-15.0Fabay[facility] hospital HospitalComment on above:Order Comment: Specimen Type: BLOOD SPECIMENOrdering Facility: [facility] Address:[address] [place], [place] [address]Performed By: #### 80982-1 ####CORNELIUS LABORATORYCLIA [id number] [place] [address] [facility] CENTERHematocrit (Bld) [Volume fraction]31.6 %Low36.0-46.0 [facility] CenterComment on above:Order Comment: Specimen Type: BLOOD SPECIMENOrdering Facility: [facility] Address:[address] [place], [place] [address]Performed By: #### 91118-5 ####CORNELIUS LABORATORYCLIA [id number] [place] [address] [facility] Hemoglobin (Bld) [Mass/Vol]10.5 g/dLLow11.5-15.5Fairselect medical specialty [facility], inc HospitalComment on above:Order Comment: Specimen Type: BLOOD SPECIMENOrdering Facility: [facility] Address:[address] [place], [place] [address]Performed By: #### 56745-7 ####CORNELIUS LABORATORYCLIA [id number] [address] (RBC) [Entitic mass]30.3 wbTwifmf62.0-34.0 [facility] HospitalComment on above:Order Comment: Specimen Type: BLOOD SPECIMENOrdering Facility: [facility] Address:[address] [place], [place] [address]Performed By: #### 92265-6 ####CORNELIUS LABORATORYCLIA [id number] [address] (RBC) [Mass/Vol]33.2 g/pMJqhtee59.5-36.0[facility] HospitalComment on above:Order Comment: Specimen Type: BLOOD SPECIMENOrdering Facility: [facility] Address:[address] [place], [place] [address]Performed By: #### 86732- 2 ####CORNELIUS LABORATORYCLIA [id number] [address] (RBC) [Entitic vol]91.1 rQUrdjey77.0-100.0Fabay[facility] hospital HospitalComment on above:Order Comment: Specimen Type: BLOOD SPECIMENOrdering Facility: [facility] Address:[address] [place], [place] [address]Performed By: #### 89819-1 ####CORNELUIS LABORATORYCLIA [id number] [address] RBC (Bld) [#/Vol]10*3/uLNormal<0.01[facility]ay[facility] HospitalComment on above:Order Comment: Specimen Type: BLOOD SPECIMENOrdering Facility: [facility] Address:[address] [place], [place] [address]Performed By: #### 03435-1 ####CORNELIUS LABORATORYCLIA [id number] [place] [id number] [place] AMERICAPlatelet mean volume (Bld) [Entitic vol]8.7 fLLow 9.0-12.7Fcentral hospital HospitalComment on above:Order Comment: Specimen Type: BLOOD SPECIMENOrdering Facility: [facility] Address:[address] [place], [place] [address]Performed By: #### 39265-9 ####CORNELIUS LABORATORYCLIA [id number] [place] [id number] [place] Platelets (Bld) [#/Vol]239 10*3/hSTrngdp704-439Ttwgzfvy HospitalComment on above:Order Comment: Specimen Type: BLOOD SPECIMENOrdering Facility: [facility] Address:[address] [place], [place] [address]Performed By: #### 29779-0 ####OCRNELIUS LABORATORYCLIA [id number] [place] [id number] [place] AMERICARBC (Bld) [#/Vol]3.47 10*6/uLLow3.90-5.20[facility] HospitalComment on above:Order Comment: Specimen Type: BLOOD SPECIMENOrdering Facility: [facility] Address:[address] [place], [place] [address]Performed By: #### 53945-3 ####CORNELIUS LABORATORYCLIA [id number] [place] [id number] [place] [facility]TRI[facility] MED[facility] CENTERWBC (Bld) [#/Vol]4.61 10*3/uLNormal3.70-11.00[facility]ay[facility] HospitalComment on above:Order Comment: Specimen Type: BLOOD SPECIMENOrdering Facility: [facility] Address:[address] [place], [place] [address]Performed By: #### 92581-0 ####CORNELIUS LABORATORYCLIA [id number] [place] [id number] [facility] CENTERHIGH SENSITIVITY TROPONIN Ton 47-21-3799Hhnuxshr T.cardiac High sensitivity method [Mass/Vol]11 ng/LNormal<12Fabay[facility] HospitalComment on above: Order Comment: Specimen Type: BLOOD SPECIMENOrdering Facility: [facility] Address:[address] [place], [place] [address]Result Comment: When assessing risk for acute coronary syndromes: In patients undergoing blood draw greater than or equal to 2 hours from symptom onset, with history of very low to moderate risk and non-ischemic ECG, an initial hs-Troponin T less than 12 ng/L AND a 1 hour delta hs-Troponin T less than 3 ng/L should be considered very low risk for 30 day MACE.Performed By: #### HSTNT, 69481-7 ####CORNELIUS LABORATORYCLIA [id number] [place] [address] [facility] CENTERHISTORY PHYSICALon 05-03-3109CDWLQNP PHYSICALNoNew [facility] Magnesium SerPl-mCncon 07-29-3891Vrfusklax [Mass/Vol]1.9 mg/dLNormal1.7-2.3 [facility] CenterComment on above:Order Comment: Specimen Type: BLOOD SPECIMENOrdering Facility: [facility] Address:[address] [place], [place] [address]Faustino [place] [id number] By: #### 58999-9, 2777-1, ####CORNELIUS LABORATORYCLIA [id number] [place] [id number] [facility] ALABAMAURSING PROGon 39-64-9253BVQVRNG PROGNormalGrandfalls HospitalNURSING PROG NormalFairselect medical specialty hospital [facility], inc HospitalOPERATIVE NOon 52-55-7442EFEQLGEWV NONormalFairselect medical specialty hospital [facility], inc HospitalPT EDon 08-11-8217EF EDNormalGrandfalls HospitalPhosphate SerPl-mCncon 19-09-8693Aibcqawgp [Mass/Vol]4.2 mg/dLNormal2.7-4.8[facility] HospitalComment on above:Order Comment: Specimen Type: BLOOD SPECIMENOrdering Facility: [facility] Address:[address] [place], [place] [address]WILFRIDO [place] [id number] By: #### 89513-9, 2777-1, 03945-8 ####CORNELIUS LABORATORYCLIA [id number] [place] [address] [facility] CENTERSURGICAL PATHOLOGYon 24-72-7480LTIC REPORTNoNew England Baptist HospitalComment on above:Order Comment: Specimen Type: TISSUE SPECIMENOrdering Facility: [facility] Address: [address] [place], [place] [address]Result Comment: Surgical Pathology Report Case: [id number] Provider: Laisha Singer MD Collected: 11/08/2023 11:56 AMOrdering Location: [facility] Received: 11/08/2023 01:53 PM Operating RoomPathologist: Oscar Marshall MDSpecimen: Small Bowel, IleostomyPerformed By: #### S ####ELKINS LABORATORYCLIA [id number] [address]ETINICAL HISTORYNoLudlow HospitalComment on above:Order Comment: Specimen Type: TISSUE SPECIMENOrdering Facility: [facility] Address: [address] [place] [address]Uknywo Comment: Pre-op diagnosis:Attention to ileostomy (HCC) [Z43.2]Partial small bowel obstruction (HCC) [K56.600]Performed By: #### S ####ELKINS LABORATORYCLIA [id number] [place] [address] [facility] DIAGNOSISNoNew England Baptist HospitalComment on above: Order Comment: Specimen Type: TISSUE SPECIMENOrdering Facility: [facility] Address: [address] [place] [address]Gzchvn Comment: Ileostomy, excision:- Enterocutaneous tissue with focal nonspecific inflammatory changes and mucosal erosion, consistent with ostomy site.JEL 11/10/2023 Performed By: #### S ####ELKINS LABORATORYCLIA [id number] [place] [address] [facility] PERFORMING LABNoLudlow HospitalComment on above:Order Comment: Specimen Type: TISSUE SPECIMENOrdering Facility: [facility] Address: [address] [place] [address]Oirvoj Comment: Diagnostic interpretation performed at [facility], [address] [place] [id number] CLIA# [id number] Director: Dheeraj Suarez M.D.Performed By: #### S ####ELKINS LABORATORYCLIA [id number] [place] [address] [place] IT[place] STATES OF AMERICAGROSS Saints Medical CenterComment on above: Order Comment: Specimen Type: TISSUE SPECIMENOrdering Facility: [facility] Address: [address] [place], [place] [address]Result Comment: A. Small Bowel, IleostomyReceived in formalin designated ileostomy is [...] with a wall thickness of 0.6 cm. Knitter Mechanic sections are submitted in one cassette.WE November 08, 2023 2:03 PMGross examination performed at [facility], [address] [place] [id number] By: #### S ####ELKINS LABORATORYCLIA [id number] [place] [id number] [place] AMERICAALLIED HEALTHon 58-50-0402ZTKKHCEssentia HealthBasic metabolic 2000 panelon 98-39-9046Agixv gap [Moles/Vol]12 mmol/LNormal9-18FCharlton Memorial Hospital Comment on above:Order Comment: Specimen Type: BLOOD SPECIMENOrdering Facility: [facility] Address:[address] [place] [address] Performed By: #### 53245-0, 66071-8, 2777-1 ####ELKINS LABORATORYCLIA [id number] [place] [id number] [place] AMERICACalcium [Mass/Vol]9.3 mg/dLNormal8.5-10.2FCharlton Memorial HospitalComment on above:Order Comment: Specimen Type: BLOOD SPECIMENOrdering Facility: [facility] Address:[address] [place], [place] [address]Performed By: #### 97012- 2, , 2776-07 ####CORNELIUS LABORATORYCLIA [id number] [place] [address] [place] AMERICAChloride [Moles/Vol]102 mmol/L Mlkgdl19-303Tkmgbnvv HospitalComment on above:Order Comment: Specimen Type: BLOOD SPECIMENOrdering Facility: [facility] Address:[address] [place], [place] [address]Performed By: #### 63512-7, , 2776-07 ####CORNELIUS LABORATORYCLIA [id number] [place] [address] [place] AMERICACO2 [Moles/Vol]22 mmol/JAcxqmq18-26Aesjeo[facility] Comment on above:Order Comment: Specimen Type: BLOOD SPECIMENOrdering Facility: [facility] Address:[address] [place] [address] Performed By: #### 58990-4, , 2776-07 ####CORNELIUS LABORATORYCLIA [id number] [place] [id number] [place] Creatinine [Mass/Vol]0.83 mg/dLNormal0.58-0.96FaSaints Medical CenterComment on above: Order Comment: Specimen Type: BLOOD SPECIMENOrdering Facility: [facility] Address:[address] [place], [place] [address]Performed By: #### 59464- 2, , 2776-07 ####CORNELIUS LABORATORYCLIA [id number] [place] [id number] [place] AMERICACreatinine and Glomerular filtration rate.predicted panel (S/P/Bld)76 mL/min/1.73m???Normal>=60FaSaints Medical CenterComment on above:Order Comment: Specimen Type: BLOOD SPECIMENOrdering Facility: [facility] Address:[address] [place], [place] [address]Result Comment: Estimated Glomerular Filtration Rate (eGFR) is [...] accurately reflect actual GFR. Performed By: #### 62345-5, , 2776-07 ####CORNELIUS LABORATORYCLIA [id number] [place] [address] [place] AMERICAGlucose [Mass/Vol]94 mg/aUIyxccj82-58Zxxjvxkp HospitalComsinai-grace hospital on above:Order Comment: Specimen Type: BLOOD SPECIMENOrdering Facility: [facility] Address:[address] [place] [id number] Comment: The [place] Diabetes Association (ADA) provides guidance for cutoff [...] symptoms of hyperglycemia or hyperglycemic crisis, random plasmaglucose results greater than or equal to 200 mg/dL meet the criteria for diagnosis of diabetes.Reference: Standards of Medical Care in Diabetes 2016, [place] [employer] Association. Diabetes Care. 2016.39(Suppl 1). Performed By: #### 35189-5, , 2776-07 ####CORNELIUS LABORATORYCLIA [id number] [place] [address] [place] Potassium [Moles/Vol]4.0 mmol/LNormal3.7-5.1FBrockton Hospital on above: Order Comment: Specimen Type: BLOOD SPECIMENOrdering Facility: [facility] Address:[address] [place] [address]Performed By: #### 15679- 2, , 2776-07 ####CORNELIUS LABORATORYCLIA [id number] [place] [address] [place] AMERICASodium [Moles/Vol]136 mmol/LNormal 136-144Fairview HospitalComment on above:Order Comment: Specimen Type: BLOOD SPECIMENOrdering Facility: [facility] Address:[address] [place], [place] [address]Performed By: #### 54334-8, , 2776-07 ####CORNELIUS LABORATORYCLIA [id number] [place] [address] [place] AMERICAUrea nitrogen [Mass/Vol]18 mg/dLNormal7-21[facility] HospitalComment on above:Order Comment: Specimen Type: BLOOD SPECIMENOrdering Facility: [facility] Address:[address] [place], [place] [address]Performed By: #### 86549-8, , 2776-07 ####CORNELIUS LABORATORYCLIA [id number] [place] [address] [facility] CENTERCBC panel Auto (Bld)on 11-66-7638Ugefxemrkwd distribution width (RBC) [Ratio]14.2 %Jwrgzp75.5-15.0 [facility] CenterComment on above:Order Comment: Specimen Type: BLOOD SPECIMENOrdering Facility: [facility] Address:[address] [place], [place] [address]Performed By: #### 85140-0 ####CORNELIUS LABORATORYCLIA [id number] [place] [id number] [place] Hematocrit (Bld) [Volume fraction]35.8 %Low36.0-46.0[facility]falls HospitalComment on above:Order Comment: Specimen Type: BLOOD SPECIMENOrdering Facility: [facility] Address:[address] [place], [place] [address]Performed By: #### 64288-5 ####CORNELIUS LABORATORYCLIA [id number] [place] [id number] [place] AMERICAHemoglobin (Bld) [Mass/Vol]11.9 g/dLNormal 11.5-15.5Fcentral hospital HospitalComment on above:Order Comment: Specimen Type: BLOOD SPECIMENOrdering Facility: [facility] Address:[address] [place], [place] [address]Performed By: #### 26702-1 ####CORNELIUS LABORATORYCLIA [id number] [address] (RBC) [Entitic mass]30.4 zeJwlnnh42.0-34.0Fabaystate noble hospital HospitalComment on above: Order Comment: Specimen Type: BLOOD SPECIMENOrdering Facility: [facility] Address:[address] [place], [place] [address]Performed By: #### 83455- 2 ####CORNELIUS LABORATORYCLIA [id number] [address] (RBC) [Mass/Vol]33.2 g/oODenkiq66.5-36.0Fabaystate noble hospital HospitalComment on above:Order Comment: Specimen Type: BLOOD SPECIMENOrdering Facility: [facility] Address:[address] [place], [place] [address]Performed By: #### 76502-9 ####CORNELIUS LABORATORYCLIA [id number] [address] (RBC) [Entitic vol] 91.6 qLQykfno60.0-100.0Fabaystate noble hospital HospitalComment on above:Order Comment: Specimen Type: BLOOD SPECIMENOrdering Facility: [facility] Address:[address] [place], [place] [address]Performed By: #### 27541-6 ####CORNELIUS LABORATORYCLIA [id number] [address]ucleated RBC (Bld) [#/Vol]10*3/uLNormal<0.01Fabaystate noble hospital HospitalComment on above:Order Comment: Specimen Type: BLOOD SPECIMENOrdering Facility: [facility] Address:[address] [place], [place] [address]Performed By: #### 58856-6 ####CORNELIUS LABORATORYCLIA [id number] [address]ETPlatelet mean volume (Bld) [Entitic vol]8.2 fLLow 9.0-12.7Fcentral hospital HospitalComment on above:Order Comment: Specimen Type: BLOOD SPECIMENOrdering Facility: [facility] Address:[address] [place], [place] [address]Performed By: #### 51806-5 ####[facility] LABORATORYCLIA [id number] [place] [id number] [place] Platelets (Bld) [#/Vol]271 10*3/qACgnckl488-011Caxwjqjy HospitalComment on above:Order Comment: Specimen Type: BLOOD SPECIMENOrdering Facility: [facility] Address:[address] [place], [place] [address]Performed By: #### 95780-8 ####[facility] LABORATORYCLIA [id number] [place] [id number] [place] AMERICARBC (Bld) [#/Vol]3.91 10*6/uLNormal3.90-5.20 [facility] HospitalComment on above:Order Comment: Specimen Type: BLOOD SPECIMENOrdering Facility: [facility] Address:[address] [place], [place] [address]Performed By: #### 82505-0 ####[facility] LABORATORYCLIA [id number] [place] [id number] [facility] SYSTEM AMERICAWBC (Bld) [#/Vol]5.03 10*3/uLNormal3.70-11.00Fabaystate noble hospital HospitalComment on above:Order Comment: Specimen Type: BLOOD SPECIMENOrdering Facility: [facility] Address:[address] [place], [place] [address]Performed By: #### 51037- 2 ####[facility] LABORATORYCLIA [id number] [place] [id number] [facility] CENTERMagnesium SerPl-mCncon 40-43-7409Rjhxoxvgx [Mass/Vol]2.0 mg/dLNormal1.7-2.3Fcentral hospital HospitalComment on above:Order Comment: Specimen Type: BLOOD SPECIMENOrdering Facility: [facility] Address:[address] [place], [place] [address]Performed By: #### 22688-4, , 2776-07 ####[facility] LABORATORYCLIA [id number] [place] [id number] [place] AMERICANURSING PROGon 53-57-3843SGQPDOJ PROGNormalGrandfalls HospitalNURSING PROGNormalGrandfalls HospitalPhosphate SerPl-mCncon 11-07-2023 Phosphate [Mass/Vol]4.6 mg/dLNormal2.7-4.8[facility] HospitalComment on above: Order Comment: Specimen Type: BLOOD SPECIMENOrdering Facility: [facility] Address:[address] [place], [place] [address]Performed By: #### 90337- 2, , 2776-07 ####[facility] LABORATORYCLIA [id number] [place] [id number] [place] AMERICAXR COLON SINGLE CONTRASTon 41-26-8128QG COLON SINGLE CONTRASTNormalGrandfalls HospitalALLIED HEALTHon 25-00-0910LHUDXP HEALTHNormalGrandfalls HospitalTRISTAR [facility] W Auto Differential panel (Bld)on 70-19-8630Cpdrsyiqb (Bld) [#/Vol]0.03 10*3/uLNormal<0.11[facility]falls HospitalComment on above:Order Comment: Specimen Type: BLOOD SPECIMENOrdering Facility: [facility] Address:[address] [place], [place] [address]Performed By: #### 47883-3 ####[facility] LABORATORYCLIA [id number] [place] [id number] [place] AMERICABasophils/100 WBC (Bld) 0.4 %NormalFabaystate noble hospital HospitalComment on above:Order Comment: Specimen Type: BLOOD SPECIMENOrdering Facility: [facility] Address:[address] [place], [place] [address]Performed By: #### 24744-8 ####[facility] LABORATORYCLIA [id number] [place] [id number] [place] Differential cell count method Nom (Bld)AutoNoNew England Baptist HospitalComment on above:Order Comment: Specimen Type: BLOOD SPECIMENOrdering Facility: [facility] Address:[address] [place], [place] [address]Performed By: #### 80394-1 ####[facility] LABORATORYCLIA [id number] [place] [address] [place] AMERICAEosinophils (Bld) [#/Vol]0.11 10*3/uLNormal<0.46 [facility] HospitalComment on above:Order Comment: Specimen Type: BLOOD SPECIMENOrdering Facility: [facility] Address:[address] [place], [place] [address]Performed By: #### 43549-3 ####[facility] LABORATORYCLIA [id number] [place] [address] [place] Eosinophils/100 WBC (Bld)1.4 %NormalHolyoke Medical CenterComsinai-grace hospital on above:Order Comment: Specimen Type: BLOOD SPECIMENOrdering Facility: [facility] Address:[address] [place], [place] [address]Performed By: #### 48223- 8 ####[facility] LABORATORYCLIA [id number] [place] [address] [place] AMERICAErythrocyte distribution width (RBC) [Ratio]13.9 %Normal 11.5-15.0Holyoke Medical CenterComment on above:Order Comment: Specimen Type: BLOOD SPECIMENOrdering Facility: [facility] Address:[address] [place], [place] [address]Performed By: #### 65207-7 ####[facility] LABORATORYCLIA [id number] [place] [id number] [place] Hematocrit (Bld) [Volume fraction]39.4 %Nhsyck86.0-46.0Grandfalls HospitalComsinai-grace hospital on above:Order Comment: Specimen Type: BLOOD SPECIMENOrdering Facility: [facility] Address:[address] [place] [address] Performed By: #### 92416-3 ####[facility] LABORATORYCLIA [id number] [place] [address] [place] AMERICAHemoglobin (Bld) [Mass/Vol] 13.3 g/sVQupovc34.5-15.5Fcentral hospital HospitalComment on above:Order Comment: Specimen Type: BLOOD SPECIMENOrdering Facility: [facility] Address:[address] [place], [place] [address]Performed By: #### 67557-5 ####[facility] LABORATORYCLIA [id number] [place] [address] [place] AMERICAImmature granulocytes (Bld) [#/Vol]10*3/uLNormal<0.10 [facility] HospitalComment on above:Order Comment: Specimen Type: BLOOD SPECIMENOrdering Facility: [facility] Address:[address] [place], [place] [address]Performed By: #### 99402-5 ####[facility] LABORATORYCLIA [id number] [place] [address] [place] Immature granulocytes/100 WBC (Bld)0.3 %NormalHolyoke Medical CenterComment on above: Order Comment: Specimen Type: BLOOD SPECIMENOrdering Facility: [facility] Address:[address] [place], [place] [address]Performed By: #### 64612- 8 ####[facility] LABORATORYCLIA [id number] [place] [address] [place] [facility] MEDICAL CENTERLymphocytes (Bld) [#/Vol]0.63 10*3/uLLow1.00-4.00 [facility] CenterComsinai-grace hospital on above:Order Comment: Specimen Type: BLOOD SPECIMENOrdering Facility: [facility] Address:[address] [place], [place] [address]Performed By: #### 67100-3 ####[facility] LABORATORYCLIA [id number] [place] [address] [place] Lymphocytes/100 WBC (Bld)8.1 %[facility] HospitalComsinai-grace hospital on above:Order Comment: Specimen Type: BLOOD SPECIMENOrdering Facility: [facility] Address:[address] [place], [place] [address]Performed By: #### 23487- 8 ####[facility] LABORATORYCLIA [id number] [place] [address] [place] [facility] CENTERMC (RBC) [Entitic mass]30.1 hrKcbisr14.0-34.0Fabaystate noble hospital HospitalComment on above:Order Comment: Specimen Type: BLOOD SPECIMENOrdering Facility: [facility] Address:[address] [place], [place] [address]Performed By: #### 19031-3 ####[facility] LABORATORYCLIA [id number] [place] [id number] [facility] CENTERMCHC (RBC) [Mass/Vol] 33.8 g/dQWsyemt13.5-36.0Fabaystate noble hospital HospitalComment on above:Order Comment: Specimen Type: BLOOD SPECIMENOrdering Facility: [facility] Address:[address] [place], [place] [address]Performed By: #### 11464-1 ####[facility] LABORATORYCLIA [id number] [address] (RBC) [Entitic vol]89.1 hOKrajai00.0-100.0Fabaystate noble hospital HospitalComment on above:Order Comment: Specimen Type: BLOOD SPECIMENOrdering Facility: [facility] Address:[address] [place], [place] [address]Performed By: #### 10316-4 ####[facility] LABORATORYCLIA [id number] [place] [address] [place] AMERICAMonocytes (Bld) [#/Vol] 0.47 10*3/uLNormal<0.87Fabaystate noble hospital HospitalComment on above:Order Comment: Specimen Type: BLOOD SPECIMENOrdering Facility: [facility] Address:[address] [place], [place] [address]Performed By: #### 20236-7 ####[facility] LABORATORYCLIA [id number] [place] [id number] [place] AMERICAMonocytes/100 WBC (Bld)6.1 %NormalFabaystate noble hospital HospitalComment on above: Order Comment: Specimen Type: BLOOD SPECIMENOrdering Facility: [facility] Address:[address] [place], [place] [address]Performed By: #### 87471- 8 ####[facility] LABORATORYCLIA [id number] [place] [id number] [place] AMERICANeutrophils (Bld) [#/Vol]6.48 10*3/uLNormal1.45-7.50 [facility] HospitalComment on above:Order Comment: Specimen Type: BLOOD SPECIMENOrdering Facility: [facility] Address:[address] [place], [place] [address]Performed By: #### 94961-8 ####[facility] LABORATORYCLIA [id number] [place] [id number] [place] Neutrophils/100 WBC (Bld)83.7 %NormalGrandfalls HospitalComment on above:Order Comment: Specimen Type: BLOOD SPECIMENOrdering Facility: [facility] Address:[address] [place], [place] [address]Performed By: #### 86302- 8 ####[facility] LABORATORYCLIA [id number] [place] [id number] [place] AMERICANucleated RBC (Bld) [#/Vol]10*3/uLNormal<0.01[facility] HospitalComment on above:Order Comment: Specimen Type: BLOOD SPECIMENOrdering Facility: [facility] Address:[address] [place], [place] [address]Performed By: #### 10286-6 ####[facility] LABORATORYCLIA [id number] [place] [id number] [place] AMERICANucleated RBC/100 WBC (Bld) [Ratio]0.0 /100 WBCNormalGrandfalls HospitalComment on above:Order Comment: Specimen Type: BLOOD SPECIMENOrdering Facility: [facility] Address:[address] [place], [place] [address]Performed By: #### 59043-5 ####[facility] LABORATORYCLIA [id number] [place] [id number] [place] AMERICAPlatelet mean volume (Bld) [Entitic vol]8.5 fLLow 9.0-12.7Fcentral hospital HospitalComment on above:Order Comment: Specimen Type: BLOOD SPECIMENOrdering Facility: [facility] Address:[address] [place], [place] [address]Performed By: #### 19771-0 ####[facility] LABORATORYCLIA [id number] [place] [id number] [facility] Platelets (Bld) [#/Vol]329 10*3/pRXmxnnq168-037Tnocfsmd HospitalComment on above:Order Comment: Specimen Type: BLOOD SPECIMENOrdering Facility: [facility] Address:[address] [place], [place] [address]Performed By: #### 14143-6 ####[facility] LABORATORYCLIA [id number] [place] [id number] [facility] CENTERRBC (Bld) [#/Vol]4.42 10*6/uLNormal3.90-5.20 [facility] CenterComment on above:Order Comment: Specimen Type: BLOOD SPECIMENOrdering Facility: [facility] Address:[address] [place], [place] [address]Performed By: #### 77116-1 ####[facility] LABORATORYCLIA [id number] [place] [id number] [place] [facility] HOSPITALWBC (Bld) [#/Vol]7.74 10*3/uLNormal3.70-11.00FaSaints Medical CenterComment on above:Order Comment: Specimen Type: BLOOD SPECIMENOrdering Facility: [facility] Address:[address] [place], [place] [address]Performed By: #### 60559- 8 ####[facility] LABORATORYCLIA [id number] [place] [id number] [facility] OF AMERICACT ABD/PEL W IVCONon 07-09-6646UV ABD/PEL W IVCONNormal [facility] CenterComprehensive metabolic 2000 panelon 31-13-4048Aszupqf [Mass/Vol]4.7 g/dLNormal3.9-4.9FaSaints Medical CenterComment on above:Order Comment: Specimen Type: BLOOD SPECIMENOrdering Facility: [facility] Address:[address] [place], [place] [address]Performed By: #### 96871-3, 3040-3, ####[facility] LABORATORYCLIA [id number] [place] [address] [place] AMERICAALP [Catalytic activity/Vol]100 U/AMwubfj00-213 [facility] HospitalComment on above:Order Comment: Specimen Type: BLOOD SPECIMENOrdering Facility: [facility] Address:[address] [place], [place] [address]Performed By: #### 43429-6, 0-3, ####[facility] LABORATORYCLIA [id number] [place] [address] [place] AMERICAALT [Catalytic activity/Vol]32 U/LNormal7-38[facility] HospitalComment on above:Order Comment: Specimen Type: BLOOD SPECIMENOrdering Facility: [facility] Address:[address] [place], [place] [address]Performed By: #### 57800-3, 3, ####[facility] LABORATORYCLIA [id number] [place] [address] [place] AMERICAAnion gap [Moles/Vol]16 mmol/L Normal9-18Fcentral hospital HospitalComment on above:Order Comment: Specimen Type: BLOOD SPECIMENOrdering Facility: [facility] Address:[address] [place], [place] [address]Performed By: #### 47604-1, 03, ####[facility] LABORATORYCLIA [id number] [place] [address] [place] AMERICAAST [Catalytic activity/Vol]39 U/KFumr55-30Ejizvryb HospitalComment on above:Order Comment: Specimen Type: BLOOD SPECIMENOrdering Facility: [facility] Address:[address] [place], [place] [address]Performed By: #### 47297-5, 3040-3, ####[facility] LABORATORYCLIA [id number] [place] [address] [place] AMERICABilirubin [Mass/Vol]0.8 mg/dL Normal0.2-1.3Fcentral hospital HospitalComment on above:Order Comment: Specimen Type: BLOOD SPECIMENOrdering Facility: [facility] Address:[address] [place], [place] [address]Performed By: #### 62267-1, 3, ####[facility] LABORATORYCLIA [id number] [place] [id number] [place] AMERICACalcium [Mass/Vol]10.0 mg/dLNormal8.5-10.2Fcentral hospital HospitalComment on above:Order Comment: Specimen Type: BLOOD SPECIMENOrdering Facility: [facility] Address:[address] [place], [place] [address]Performed By: #### 14370-6, 3, ####[facility] LABORATORYCLIA [id number] [place] [id number] [place] Chloride [Moles/Vol]99 mmol/YJehdqf00-269Kkrlvoxd HospitalComment on above:Order Comment: Specimen Type: BLOOD SPECIMENOrdering Facility: [facility] Address:[address] [place], [place] [address]Performed By: #### 11555- 8, 3, ####[facility] LABORATORYCLIA [id number] [place] [id number] [place] AMERICACO2 [Moles/Vol]20 mmol/NXoz31-19 [facility] HospitalComment on above:Order Comment: Specimen Type: BLOOD SPECIMENOrdering Facility: [facility] Address:[address] [place], [place] [address]Performed By: #### 33573-8, 3, ####[facility] LABORATORYCLIA [id number] [place] [id number] [place] AMERICACreatinine [Mass/Vol]0.84 mg/dLNormal0.58-0.96Fabaystate noble hospital HospitalComment on above:Order Comment: Specimen Type: BLOOD SPECIMENOrdering Facility: [facility] Address:[address] [place] [address] Performed By: #### 09899-8, 3, ####[facility] LABORATORYCLIA [id number] [place] [address] [place] Creatinine and Glomerular filtration rate.predicted panel (S/P/Bld)75 mL/min/1.73m???Normal>=60[facility] Medical CenterComment on above:Order Comment: Specimen Type: BLOOD SPECIMENOrdering Facility: [facility] Address:[address] [place], [place] [address]Result Comment: Estimated Glomerular Filtration Rate (eGFR) is calculated using the 2020 CKD-EPI creatinine equation. This equation utilizes serum creatinine, sex, and age as parameters. The creatinine assay has traceable calibration to isotope dilution-mass spectrometry. Refer to KDIGO guidelines for clinical interpretation. In patients with unstable renal function, e.g. those with acute kidney injury, the eGFR may not accurately reflect actual GFR.Performed By: #### 68274-7, 3040-3, ####CORN[facility]IUS LABORATORYIA [id number] [place] [address] [facility] CENTERGlucose [Mass/Vol]107 mg/kTGwaz26-50E[address] Comment on above:Order Comment: Specimen Type: BLOOD SPECIMENOrdering Facility: [facility] Address:[address] [place] [address] Comment: The [place] Diabetes Association (ADA) provides guidance for cutoff values for fasting glucose and random glucose. The ADA defines fasting as no caloric intake for at least 8 hours. Fasting plasma glucose results between 100 to 125 mg/dL indicate increased risk for diabetes (prediabetes).Fasting plasma glucose results greater than or equal to 126 mg/dL meet the criteria for diagno sis of diabetes. In the absence of unequivocal hyperglycemia, results should be confirmed by repeattesting. In a patient with classic symptoms of hyperglycemia or hyperglycemic crisis, random plasmaglucose results greater than or equal to 200 mg/dL meet the criteria for diagnosis of diabetes.Reference: Standards of Medical Care in Diabetes 2016, [place] Diabetes Association. Diabetes Care. 2016.39(Suppl 1).Performed By: #### 83861-9, 3040-3, ####[facility] LABORATORYCLIA [id number] [place] [address] [place] AMERICAPotassium [Moles/Vol]4.0 mmol/LNormal3.7-5.1Fcentral hospital HospitalComment on above:Order Comment: Specimen Type: BLOOD SPECIMENOrdering Facility: [facility] Address:[address] [place], [place] [address]Performed By: #### 36979-8, 3040-3, ####[facility] LABORATORYCLIA [id number] [place] [id number] [place] AMERICAProtein [Mass/Vol]7.6 g/dL Normal6.3-8.0Fabaystate noble hospital HospitalComment on above:Order Comment: Specimen Type: BLOOD SPECIMENOrdering Facility: [facility] Address:[address] [place], [place] [address]Performed By: #### 29836-6, 3, ####[facility] LABORATORYCLIA [id number] [place] [address] [place] AMERICASodium [Moles/Vol]135 mmol/ZFhn000-423Bdvmzfsm Hospital Comment on above:Order Comment: Specimen Type: BLOOD SPECIMENOrdering Facility: [facility] Address:[address] [place] [address] Performed By: #### 07846-4, 3, ####[facility] LABORATORYCLIA [id number] [place] [id number] [place] AMERICAUrea nitrogen [Mass/Vol]18 mg/dLNormal7-21Fabaystate noble hospital HospitalComment on above:Order Comment: Specimen Type: BLOOD SPECIMENOrdering Facility: [facility] Address:[address] [place], [place] [address]Performed By: #### 76051- 8, 30403, ####C[facility] LABORATORYCLIA [id number] [place] [address] [place] AMERICAED PROV NOTEon 26-33-0866WX PROV NOTENormalFairselect medical specialty hospital [facility], inc HospitalED Triage Noteon 79-28-2923PP Triage NoteNormal [facility] HospitalHISTORY PHYSICALon 11-92-9751DUCVDRW PHYSICALNormalGrandfalls HospitalLipase SerPl-cCncon 16-23-5427Svzmox [Catalytic activity/Vol]9 U/LLow 16-61[facility] Medical CenterComment on above:Order Comment: Specimen Type: BLOOD SPECIMENOrdering Facility: [facility] Address:[address] [place], [place] [address]Performed By: #### 23219-0, 3040-3, 53092-4 ####[facility] LABORATORYCLIA [id number] [place] [id number] [place] AMERICAMagnesium SerPl-mCncon 06-65-7801Hkvdxjzzr [Mass/Vol]1.4 mg/dLLow1.7-2.3 [facility] CenterComment on above:Order Comment: Specimen Type: BLOOD SPECIMENOrdering Facility: [facility] Address:[address] [place], [place] [address]Performed By: #### 86190-0, 3040-3, 49318-5 ####[facility] LABORATORYCLIA [id number] [place] [address] [place] AMERICANURSING PROGon 54-88-8310KYISOJH PROGNormalGrandfalls HospitalPT panel Coag (PPP)on 31-03-4216MGL Coag (PPP) [Relative time]0.9 {INR}Normal0.9-1.3 [facility] CenterComment on above:Order Comment: Specimen Type: BLOOD SPECIMENOrdering Facility: [facility] Address:[address] [place], [place] [address]Result Comment: Vitamin K Antagonist (VKA) Therapeutic Range: INR 2 to 3 (Target INR of 2.5)Note: For patients treated with VKA drugs, such as warfarin, the [employer] 2012 Guideline recommends a therapeutic INR range of 2 to 3 (target INR of 2.5). This recommendation inclu delon high-risk patients with antiphospholipid syndrome with previous arterial or venous thromboembolism, current-generation mechanical or bioprosthetic aortic heart valve replacement.Note: Patients with mechanical aortic valve replacement and additional risk factors for thromboembolic events (atrialfibrillation, previous thromboembolism, LV dysfunction, hypercoagulable conditions) or an older generation mechanical AVR (i.e., ball in-Cage) or any mechanical MVR should have a INR therapeutic range of 2.5 to 3.5 (target INR of 3).Angel GH, et al. Chest 2012, 141:7S-47SNishimura RA, et al. [facility] 2017, 70: 252-289 Performed By: #### 88488-0, 58030-4 ####[facility] LABORATORYCLIA [id number] [place] [id number] [facility] OF AMERICAPT Coag (PPP) [Time] 10.6 sNormal9.7-13.0[facility] HospitalComment on above:Order Comment: Specimen Type: BLOOD SPECIMENOrdering Facility: [facility] Address:[address] [place], [place] [address]Performed By: #### 72855-4, 86848-7 ####[facility] LABORATORYCLIA [id number] [address]ETTYPE + SCREENon 81-69-4142OPXYOonjgsRzbnfdit HospitalComment on above: Order Comment: Specimen Type: BLOOD SPECIMENOrdering Facility: [facility] Address:[address] [place], [place] [address]Performed By: #### TSCR ####[facility] BLOOD BANKCLIA [id number] [address] STREETHISTORICAL AB SCR STATUSNegativeNoLongwood Hospital Hospital Comment on above:Order Comment: Specimen Type: BLOOD SPECIMENOrdering Facility: [facility] Address:[address] [place] [address] Performed By: #### TSCR ####C[facility] BLOOD BANKCLIA [id number] [place] [id number] [facility] CENTERRh Nom (Bld)NegativeNormal [facility] HospitalComment on above:Order Comment: Specimen Type: BLOOD SPECIMENOrdering Facility: [facility] Address:[facility] [place], [place] [address]Performed By: #### TSCR ####[facility] BLOOD BANKCLIA [id number] [place] [address] [place] AMERICATYPE AND SCREEN RCOLFLUSLJ61/02/2024 23:59NormalFabaystate noble hospital HospitalComment on above: Order Comment: Specimen Type: BLOOD SPECIMENOrdering Facility: [facility] Address:[address] [place], [place] [address]Performed By: #### TSCR ####C[facility] BLOOD BANKCLIA [id number] [place] [id number] [place] AMERICAUrinalysis complete panel (U)on 40-63-1340Odbgcehuo Ql (U)NegativeNormalNegativeGrandfalls HospitalComment on above:Order Comment: Specimen Type: URINE SPECIMENOrdering Facility: [facility] Address:[address] [place], [place] [address]Performed By: #### 52467-0 ####[facility] LABORATORYCLIA [id number] [place] [address] [place] [facility] CENTERClarity (Unsp spec)ClearNormalClearHolyoke Medical Center Comment on above:Order Comment: Specimen Type: URINE SPECIMENOrdering Facility: [facility] Address:[address] [place] [address] Performed By: #### 37094-3 ####[facility] LABORATORYCLIA [id number] [place] [id number] [place] AMERICAColor (U)Light YellowNormal YellowGrandfalls HospitalComment on above:Order Comment: Specimen Type: URINE SPECIMENOrdering Facility: [facility] Address:[address] [place], [place] [address]Performed By: #### 69868-7 ####[facility] LABORATORYCLIA [id number] [place] [id number] [place] Epithelial cells LM.HPF (Urine sed) [#/Area]FewNoLongwood Hospital HospitalComment on above:Order Comment: Specimen Type: URINE SPECIMENOrdering Facility: [facility] Address:[address] [place], [place] [address]Performed By: #### 64301-8 ####[facility] LABORATORYCLIA [id number] [place] [id number] [place] AMERICAGlucose Test strip (U) [Mass/Vol]NegativeNormal Trace, NegativeFairselect medical specialty hospital - boardman, inc HospitalComment on above:Order Comment: Specimen Type: URINE SPECIMENOrdering Facility: [facility] Address:[address] [place], [place] [address]Performed By: #### 66983-9 ####[facility] LABORATORYCLIA [id number] [place] [address] [place] Hemoglobin Ql (U)1+AbnormalNegative, TraceFairselect medical specialty hospital - boardman, inc HospitalComment on above: Order Comment: Specimen Type: URINE SPECIMENOrdering Facility: [facility] Address:[address] [place], [place] [address]Performed By: #### 76207- 8 ####[facility] LABORATORYCLIA [id number] [place] [address] [place] [facility] MEDICAL CENTERKetones Ql (U)NegativeNormalNegative, TraceGrandfalls HospitalComment on above:Order Comment: Specimen Type: URINE SPECIMENOrdering Facility: [facility] Address:[address] [place], [place] [address]Performed By: #### [id number] ####[facility] LABORATORYCLIA [id number] [address] STATES AMERICALeukocyte esterase Test strip Ql (U)NegativeNormalNegative, 25 Melody/uLFairselect medical specialty hospital - boardman, inc HospitalComment on above: Order Comment: Specimen Type: URINE SPECIMENOrdering Facility: [facility] Address:[address] [place], [place] [address]Performed By: #### [id number]- 8 ####CORNELI[facility] LABORATORYCLIA [id number] [place] [address] [place] AMERICANitrite Ql (U)NegativeNormalNegativeGrandfalls Hospital Comment on above:Order Comment: Specimen Type: URINE SPECIMENOrdering Facility: [facility] Address:[address] [place] [address] Performed By: #### [id number] ####CORNELIUS LABORATORYCLIA [id number] [place] [address] [place] AMERICApH (U)6.5 [pH]Normal5.0-8.0 [facility] CenterComment on above:Order Comment: Specimen Type: URINE SPECIMENOrdering Facility: [facility] Address:[address] [place], [place] [address]Performed By: #### [id number] ####CORNELI[facility] LABORATORYCLIA [id number] [place] [address] [place] AMERICAProtein (U) [Mass/Vol]TraceNormalTrace, NegativeFabaystate noble hospital HospitalComment on above:Order Comment: Specimen Type: URINE SPECIMENOrdering Facility: [facility] Address:[address] [place], [place] [address]Performed By: #### [id number]- 8 ####CORNELI[facility] LABORATORYCLIA [id number] [place] [address] [place] PRE[facility] ATRIUM MEDICAL CENTERRBC LM.HPF (Urine sed) [#/Area]0-3 /HPFNormal0-3 /HPF [facility] CenterComment on above:Order Comment: Specimen Type: URINE SPECIMENOrdering Facility: [facility] Address:[address] [place], [place] [address]Performed By: #### [id number] ####CORNELIUS LABORATORYCLIA [id number] [place] [address] [place] Specific gravity (U) [Rel density]>1.443Gfdn3.005-1.030[facility] CenterComment on above:Order Comment: Specimen Type: URINE SPECIMENOrdering Facility: [facility] Address:[address] [place] [address] Performed By: #### [id number] ####CORNELIUS LABORATORYCLIA [id number] [place] [id number] [place] [facility] MEDICAL CENTERUrobilinogen Ql (U)Normal NormalNormalGrandfalls HospitalComment on above:Order Comment: Specimen Type: URINE SPECIMENOrdering Facility: [facility] Address:[address] [place], [place] [address]Performed By: #### [id number] ####CORNELIUS LABORATORYCLIA [id number] [place] [address] [place] AMERICAWBC LM.HPF (Urine sed) [#/Area]0-5 /HPFNormal0-5 /HPFFabaystate noble hospital HospitalComment on above:Order Comment: Specimen Type: URINE SPECIMENOrdering Facility: [facility] Address:[address] [place], [place] [address]Performed By: #### [id number] ####CORNELIUS LABORATORYCLIA [id number] [place] [address] [place] AMERICAaPTT PPPon 64-05-7868eRJL Coag (PPP) [Time]25.4 s Gqalou03.0-32.4Fcentral hospital HospitalComment on above:Order Comment: Specimen Type: BLOOD SPECIMENOrdering Facility: [facility] Address:[address] [place], [place] [address]Performed By: #### 07320-3, 18282-8 ####[facility]INPRE[facility] LABORATORYCLIA [id number] [place] [address] [place] AMERICABasophils Auto (Bld) [#/Vol]Ordered By: Ion Eckert on 10-28-2023 Basophils (Bld) [#/Vol]0.0 10*3/uL0.0-0.2FSumma Health [facility] Basophils/100 WBC Auto (Bld)Ordered By: Ion Eckert on 46-16-8320Ofeaxcbdb/100 WBC (Bld)0.6 %.[facility]S HospitalCarbon dioxide, total [Moles/volume] in Serum or PlasmaOrdered By: Ion Eckert on 21-47-6740OC6 [Moles/Vol]31.8 mmol/L21.0-31.0[facility] HospitalChloride [Moles/volume] in Serum or PlasmaOrdered By: Ion Eckert on 53-35-7813Fgbfrsvk [Moles/Vol]104 mmol/W24-835YyjivokngDayton Children'S HospitalCreatinine [Mass/volume] in Serum or PlasmaOrdered By: Ion Eckert on 86-05-5551Zvoafhhcpt [Mass/Vol]0.60 mg/dL0.60-1.20[facility]S HospitalEosinophils Auto (Bld) [#/Vol]Ordered By: Ion Eckert on 38-18-2011Acgzprfsokj (Bld) [#/Vol]0.4 10*3/uL0.0-0.45[facility] HospitalEosinophils/100 WBC Auto (Bld) Ordered By: Ion Eckert on 06-20-0761Fnsrojohjpz/100 WBC (Bld)7.1 %.[facility]S HospitalErythrocyte distribution width Auto (RBC) [Ratio]Ordered By: Ion Eckert on 97-91-5228Rmmjabijney distribution width (RBC) [Ratio]14.9 % 11.9-15.3FSumma Health Wadsworth - Rittman Medical CenterHematocrit Auto (Bld) [Volume fraction]Ordered By: Ion Eckert on 30-11-2577Ozobttpczm (Bld) [Volume fraction] 31.9 %34.0-46.4FSumma Health Wadsworth - Rittman Medical CenterHemoglobin [Mass/volume] in BloodOrdered By: Ion Eckert on 44-14-9052Kgmolbtidq (Bld) [Mass/Vol]10.6 g/dL 11.8-15.4FSumma Health Wadsworth - Rittman Medical CenterLeukocytes [#/volume] corrected for nucleated erythrocytes in Blood by Automated counOrdered By: Ion Eckert on 95-33-9250JSV corrected for nucl RBC Auto (Bld) [#/Vol]5.6 10*3/uL3.8-11.6 [facility] HospitalLymphocytes Auto (Bld) [#/Vol]Ordered By: Ion Eckert on 76-28-0923Azqbyltclsq (Bld) [#/Vol]0.8 10*3/uL1.00-4.8[facility]S HospitalLymphocytes/100 WBC Auto (Bld)Ordered By: Ion Eckert on 15-99-0123Bkzddlxsbte/100 WBC (Bld)13.6 %.[facility] Auto (RBC) [Entitic mass]Ordered By: Ion Eckert on 51-97-7992PYA (RBC) [Entitic mass]29.7 pg24.7-34.3FSumma Health Wadsworth - Rittman Medical CenterMC Auto (RBC) [Mass/Vol]Ordered By: Ion Eckert on 24-56-3187JOCW (RBC) [Mass/Vol]33.2 g/dL 32.0-35.0[facility]S HospitalMCV Auto (RBC) [Entitic vol]Ordered By: Ion Eckert on 95-68-3880ERA (RBC) [Entitic vol]89.6 iH56-588MjrwrevapDayton Children'S HospitalMonocytes Auto (Bld) [#/Vol]Ordered By: Ion Eckert on 84-68-1352Kwqfdqjar (Bld) [#/Vol]0.7 10*3/uL0.0-0.8[facility]S HospitalMonocytes/100 WBC Auto (Bld)Ordered By: Ion Eckert on 10-28-2023 Monocytes/100 WBC (Bld)11.9 %.[facility]S HospitalNeutrophils Auto (Bld) [#/Vol]Ordered By: Ion Eckert on 29-21-7907Fmzxtmzfjsy (Bld) [#/Vol]3.8 10*3/uL1.8-7.7FSumma Health Wadsworth - Rittman Medical CenterNeutrophils/100 WBC Auto (Bld) Ordered By: Ion Eckert on 60-99-0999Rmvkdqizffc/100 WBC (Bld)66.8 %.[facility]S HospitalNo Panel InformationOrdered By: Ion Eckert on 10-28-2023 Estimated GFR (CKD-EPI)> 60.0 mL/MinDayton Children'S HospitalPharmacy Creatinine Clearance (Chem61.83[facility]S HospitalNucleated erythrocytes [Presence] in Blood by Automated countOrdered By: Ion Eckert on 80-95-0889Kjvfyizor RBC Auto Ql (Bld)0.1 /100{WBC}0-0.5FSumma Health Wadsworth - Rittman Medical CenterPlatelet mean volume Auto (Bld) [Entitic vol]Ordered By: Ion Eckert on 97-83-5054Vwsstxtk mean volume (Bld) [Entitic vol]6.4 fL6.3-10.7 [facility] HospitalPlatelets Auto (Bld) [#/Vol]Ordered By: Ion Eckert on 62-10-8841Ellnrzdee (Bld) [#/Vol]294 10*3/sO902-341SusayinecDayton Children'S HospitalPotassium [Moles/volume] in Serum or PlasmaOrdered By: Ion Eckert on 27-76-7431Asakbbmqc [Moles/Vol]3.9 mmol/L3.5-5.1FSumma Health Wadsworth - Rittman Medical CenterRBC Auto (Bld) [#/Vol]Ordered By: Ion Eckert on 75-88-3749VSG (Bld) [#/Vol]3.56 10*6/uL3.60-5.00[facility] Hospitalerum or plasma anion gap determinationOrdered By: Ion Eckert on 55-00-7441Pxyvx gap [Moles/Vol]9.1 mmol/L6.0-15.0[facility] Hospitalodium [Moles/volume] in Serum or PlasmaOrdered By: Ion Eckert on 70-59-9405Twfgru [Moles/Vol]141 mmol/C034-309RquaasubjDayton Children'S HospitalUrea nitrogen [Mass/volume] in Serum or PlasmaOrdered By: Ion Eckert on 33-13-6559Dhag nitrogen [Mass/Vol]11 mg/dL7-25Day[facility]S HospitalWBC Auto (Bld) [#/Vol]Ordered By: Ion Eckert on 18-45-0605XSZ (Bld) [#/Vol]5.6 10*3/uL3.8-11.6 [facility]S HospitalGlucose Glucometer (BldC) [Mass/Vol]Ordered By: Jm Trujillo on 35-11-6671Jkpizmc [Mass/Vol]71 mg/dLDayton Children'S HospitalComment on above:Random Glucose Reference Range is dependent on time and content of last meal. Glucose of more than 200 mg/dL in a nonstressed, ambulatory subject supports the diagnosis of Diabetes Mellitus.Calcium [Mass/volume] in Serum or PlasmaOrdered By: Ethel Saucedo on 57-02-1218Tzquqto [Mass/Vol]9.3 mg/dL8.6-10.3FSumma Health Wadsworth - Rittman Medical CenterGlucose [Mass/volume] in Serum or PlasmaOrdered By: Ethel Saucedo on 29-89-8910Rdfkrmc [Mass/Vol]105 mg/uG80-940DmfjipbjeDayton Children'S HospitalComment on above:ADA recommended reference rangeRandom Glucose Reference Range is dependent on time and content of last meal. Glucose of more than 200 mg/dL in a nonstressed, ambulatory subject supports the diagnosisof Diabetes Mellitus.Magnesium [Mass/volume] in Serum or PlasmaOrdered By: Ethel Saucedo on 03-67-6836Teqvoicfm [Mass/Vol]2.0 mg/dL1.9-2.7FSumma Health Wadsworth - Rittman Medical CenterActivated partial thromboplastin time (aPTT) in platelet poor plasma by coagulation aOrdered By: Mary Al on 44-42-3684eQVX Coag (PPP) [Time]25.0 s25.1-36.5FSumma Health Wadsworth - Rittman Medical CenterComment on above:A hematocrit value greater than 55% may lead to inaccurate results in coagulation testing. Patientshaving hematocrit values >55% require a special collection tube for coagulation studies. Please c ontact the laboratory at [phone] for redraw instructions.Alanine aminotransferase [Enzymatic activity/volume] in Serum or PlasmaOrdered By: Mary Al on 56-83-2312WHU [Catalytic activity/Vol]36 U/L7-52[facility]S HospitalAlbumin [Mass/volume] in Serum or Plasma by Bromocresol green (BCG) dye binding methoOrdered By: Mary Al on 35-88-3856Sxhliop BCG dye [Mass/Vol]4.4 g/dL3.5-5.7FSumma Health Wadsworth - Rittman Medical CenterAlkaline phosphatase [Enzymatic activity/volume] in Serum or PlasmaOrdered By: Mary Al on 24-52-6568GQH [Catalytic activity/Vol]79 U/V36-452VevqpmmhtDayton Children'S HospitalAspartate aminotransferase [Enzymatic activity/volume] in Serum or PlasmaOrdered By: Mary Al on 76-48-7105SIV [Catalytic activity/Vol]52 U/L 13-39[facility]S HospitalAutomated erythrocytes count in urine sediment (number/area)Ordered By: Mary Al on 60-74-2537YVR Auto (Urine sed) [#/Area]0-1 [HPF]0-4FSumma Health Wadsworth - Rittman Medical CenterAutomated leukocytes count in urine sediment (number/area)Ordered By: Mary Al on 00-30-9975RGX Auto (Urine sed) [#/Area]10-19 [HPF]0-4FSumma Health Wad[facility] Center Basophils Auto (Bld) [#/Vol]Ordered By: Mary Al on 98-09-0173Ucioibrts (Bld) [#/Vol]0.1 10*3/uL0.0-0.2FSumma Health Wadsworth - Rittman Medical CenterBasophils/100 WBC Auto (Bld)Ordered By: Mary Al on 76-78-7218Jeglqxxso/100 WBC (Bld)0.7 %.[facility]S HospitalBilirubin Test strip Ql (U)Ordered By: Mary Al on 96-03-3582Kkpmvcrpc Ql (U)NegativeNegativeDayton Children'S HospitalBilirubin.direct [Mass/volume] in Serum or PlasmaOrdered By: Mary Al on 46-72-1187Annzxzuse.direct [Mass/Vol]0.20 mg/dL0.03-0.18 [facility] HospitalBilirubin.total [Mass/volume] in Serum or PlasmaOrdered By: Mary Al on 86-42-5242Zaijaerbq [Mass/Vol]1.0 mg/dL 0.3-1.0[facility]S HospitalCalcium [Mass/volume] in Serum or Plasma Ordered By: Mary Al on 32-21-9192Ivgwrys [Mass/Vol]9.9 mg/dL8.6-10.3 [facility] HospitalCarbon dioxide, total [Moles/volume] in Serum or PlasmaOrdered By: Mary Al on 74-62-3836ZZ1 [Moles/Vol]21.9 mmol/L 21.0-31.0[facility] HospitalChloride [Moles/volume] in Serum or PlasmaOrdered By: Mary Al on 96-77-8976Ukndxnlq [Moles/Vol]100 mmol/L 98-107Day[facility]S HospitalColor Auto (U)Ordered By: Mary Al on 43-47-1592Roggs (U)YellowYellowDayton Children'S HospitalCreatine kinase [Enzymatic activity/volume] in Serum or PlasmaOrdered By: Mary Al on 46-90-9453XR [Catalytic activity/Vol]128 U/P03-837SjnitztqhDayton Children'S HospitalCreatinine [Mass/volume] in Serum or PlasmaOrdered By: Mary Al on 50-85-1599Gvgrgjfped [Mass/Vol]0.67 mg/dL0.60-1.20[facility]S HospitalEosinophils Auto (Bld) [#/Vol]Ordered By: Mary Al on 10-25-2023 Eosinophils (Bld) [#/Vol]0.3 10*3/uL0.0-0.45[facility] Eosinophils/100 WBC Auto (Bld)Ordered By: Mary Al on 10-25-2023 Eosinophils/100 WBC (Bld)2.2 %.[facility]S HospitalErythrocyte distribution width Auto (RBC) [Ratio]Ordered By: Mary Al on 10-25-2023 Erythrocyte distribution width (RBC) [Ratio]15.5 %11.9-15.3FSumma Health Wadsworth - Rittman Medical CenterFibrin D-dimer [Presence] in Platelet poor plasma by Latex agglutinationOrdered By: Mary Al on 77-97-8410Osoonl D-dimer LA Ql (PPP) 312 ng/mL0-243Day[facility]S HospitalComment on above:The reference range for D-dimer is <243 ng/mL D-dimer units.D-dimer results must be used in conjunction with a clinicalpretest probability (PTP) assessment model for deep veinthrombosis (DVT) and pulmonary embolism (PE). Results <230ng/mL d-dimer units can be used as a negative predictor inpatients with low or moderate probability for DVT/PE.Results above the exclusion threshold of 230 ng/ml D- dimerunits for DVT/PE may indicate the need for furtherdiagnostic testing.D- Dimer can be increased in hospitalized patients due toco-morbid conditions.A hematocrit value greater than 55% may lead to inaccurate results in coagulation testing. Patients having hematocrit values >55% require a special collection tube for coagulation studies. Please contact the laboratory at [phone] for redraw instructions.Globulin Calc (S) [Mass/Vol]Ordered By: Mary Al on 27-32-4570Eqiiqwuj (S) [Mass/Vol]2.9 g/dLDayton Children'S Hospital Glucose [Mass/volume] in Serum or PlasmaOrdered By: Mary Al on 10-25-2023 Glucose [Mass/Vol]132 mg/fL90-227GedqxdlpxDayton Children'S HospitalComment on above:ADA recommended reference rangeRandom Glucose Reference Range is dependent on time and content of last meal. Glucose of more than 200 mg/dL in a nonstressed, ambulatory subject supports the diagnosisof Diabetes Mellitus. Hematocrit Auto (Bld) [Volume fraction]Ordered By: Mary Al on 10-25-2023 Hematocrit (Bld) [Volume fraction]38.4 %34.0-46.4FSumma Health Wadsworth - Rittman Medical CenterHemoglobin [Mass/volume] in BloodOrdered By: Mary Al on 10-25-2023 Hemoglobin (Bld) [Mass/Vol]12.9 g/dL11.8-15.4FSumma Health W[facility] INR in Platelet poor plasma by Coagulation assayOrdered By: Mary Al on 60-14-0062HFD Coag (PPP) [Relative time]1.0 {INR}[facility]'S HospitalComment on above:INR Therapeutic Range A) Pre- and Peroperative OAT started two weeks before surgery. NOT HIP SURGERY: 1.5 - 2.5 HIP SURGERY: 2 - 3B) Primary and secondary prevention of venous THROMBOSIS: 2 - 3C) Active venous thrombosis, pulmonary embolismand prevention of recurrent venous thrombosis: 2 - 3D) Prevention of arterial thromboembolismincluding patients with mechanical heart valves: 3 - 4.5Ketones Auto test strip (U) [Mass/Vol]Ordered By: Mary Al on 43-02-3621Tdyljxl (U) [Mass/Vol]NegativeNegativeDayton Children'S HospitalLaboratory - UrinalysisOrdered By: Mary Al on 10-25-2023 Hyaline casts LM Ql (Urine sed)None seen [LPF]0-8[facility]'S HospitalLactate [Moles/volume] in Serum or PlasmaOrdered By: Mary Al on 28-98-5717Dniythb [Moles/Vol]1.3 mmol/L0.5-2.2FSumma Health W[facility] Leukocytes [#/volume] corrected for nucleated erythrocytes in Blood by Automated counOrdered By: Mary Al on 31-03-4753WXS corrected for nucl RBC Auto (Bld) [#/Vol]14.4 10*3/uL3.8-11.6FSumma Health Wadsworth - Rittman Medical CenterLymphocytes Auto (Bld) [#/Vol]Ordered By: Mary Al on 33-26-4712Guqkgcvnmma (Bld) [#/Vol]2.2 10*3/uL1.00-4.8[facility]S HospitalLymphocytes/100 WBC Auto (Bld)Ordered By: Mary Al on 31-99-8815Rwfrjrvibpm/100 WBC (Bld)14.9 %.[facility] HospitalH Auto (RBC) [Entitic mass]Ordered By: Mary Al on 44-79-5679XHV (RBC) [Entitic mass]29.3 pg24.7-34.3FSumma Health Wadsworth - Rittman Medical CenterMCHC Auto (RBC) [Mass/Vol]Ordered By: Mary Al on 67-93-7703VMFJ (RBC) [Mass/Vol]33.5 g/dL32.0-35.0[facility]S HospitalMCV Auto (RBC) [Entitic vol]Ordered By: Mary Al on 54-08-2057VFX (RBC) [Entitic vol]87.5 vF77-428OnjlfwmbdDayton Children'S HospitalMonocyte distribution width [Entitic volume] in Blood by AutomatedOrdered By: Mary Al on 39-92-8724Veychtav distribution width Auto (Bld) [Entitic vol]18.93 % 0.00-20.00[facility]S HospitalMonocytes Auto (Bld) [#/Vol]Ordered By: Mary Al on 88-27-8007Mdxiercne (Bld) [#/Vol]1.0 10*3/uL0.0-0.8 [facility] HospitalMonocytes/100 WBC Auto (Bld)Ordered By: Mary Al on 28-89-1292Laqcsphhk/100 WBC (Bld)6.7 %.[facility]S HospitalNatriuretic peptide B [Mass/Vol]Ordered By: Mary Al on 10-25-2023 Natriuretic peptide B (Bld) [Mass/Vol]42.0 pg/mL5-100Day[facility]S HospitalNeutrophils Auto (Bld) [#/Vol]Ordered By: Mary Al on 10-25-2023 Neutrophils (Bld) [#/Vol]10.9 10*3/uL1.8-7.7FSumma Health [facility] Neutrophils/100 WBC Auto (Bld)Ordered By: Mary Al on 10-25-2023 Neutrophils/100 WBC (Bld)75.5 %.[facility]S HospitalNitrite Test strip Ql (U)Ordered By: Mary Al on 14-71-0860Vdlugak Ql (U)Negative NegativeDayton Children'S HospitalNo Panel InformationOrdered By: Mary Al on 77-33-6177Ubrjsgxqz GFR (CKD-EPI)> 60.0 mL/MinDayton Children'S HospitalPharmacy Creatinine Clearance (Chem61.55[facility]'S HospitalNucleated erythrocytes [Presence] in Blood by Automated countOrdered By: Mary Al on 16-50-8145Evaasmcim RBC Auto Ql (Bld)0.0 /100{WBC}0-0.5 [facility]S HospitalPlatelet mean volume Auto (Bld) [Entitic vol] Ordered By: Mary Al on 79-57-0492Cxwbffho mean volume (Bld) [Entitic vol] 6.4 fL6.3-10.7FSumma Health Wadsworth - Rittman Medical CenterPlatelets Auto (Bld) [#/Vol] Ordered By: Mary Al on 83-28-2954Iqylqlool (Bld) [#/Vol]397 10*3/uL 150-450Day[facility]S HospitalPotassium [Moles/volume] in Serum or PlasmaOrdered By: Mary Al on 28-11-3671Nwbqqkvym [Moles/Vol]4.0 mmol/L 3.5-5.1FSumma Health Wadsworth - Rittman Medical CenterProtein Auto test strip (U) [Mass/Vol] Ordered By: Mary Al on 82-51-4235Uuklebs (U) [Mass/Vol]NegativeNegative [facility] HospitalProtein [Mass/volume] in Serum or PlasmaOrdered By: Mary Al on 59-12-1334Yjcqmgn [Mass/Vol]7.3 g/dL6.4-8.9[facility]S HospitalProthrombin time (PT)Ordered By: Mary Al on 13-55-0926BK Coag (PPP) [Time]11.4 s9.0-12.9[facility] Comment on above:A hematocrit value greater than 55% may lead to inaccurate results in coagulation testing. Patientshaving hematocrit values >55% require a special collection tube for coagulation studies. Please contact the laboratory at [phone] for redraw instructions.RBC Auto (Bld) [#/Vol]Ordered By: Mary Al on 03-26-2868KDZ (Bld) [#/Vol]4.39 10*6/uL3.60-5.00[facility] Hospitalerum or plasma albumin/globulin mass ratioOrdered By: Mary Al on 26-92-2051Smefezl/Globulin [Mass ratio]1.5 {ratio}[facility] Hospitalerum or plasma anion gap determinationOrdered By: Mary Al on 14-42-0546Ttrgl gap [Moles/Vol]15.1 mmol/L6.0-15.0[facility] Hospitalerum or plasma non-glucuronidated bilirubin measurement (mass/volume) Ordered By: Mary Al on 11-59-4798Qayjbtcir.indirect [Mass/Vol]0.8 mg/dL [facility] Hospitalodium [Moles/volume] in Serum or PlasmaOrdered By: Mary Al on 56-63-3118Fdvjdi [Moles/Vol]133 mmol/J732-105TjnduntiqDayton Children'S HospitalComment on above:Delta: 142 on 10/24/23-0827Specific gravity Auto test strip (U) [Rel density]Ordered By: Mary Al on 92-10-0908Orippnto gravity (U) [Rel density]1.0371.001-1.030[facility] Hospitalquamous epithelial cells detection in urine sediment by light microscopyOrdered By: Mary Al on 16-71-5308Xkjpzzfvrj cells.squamous LM Ql (Urine sed)0-1 [HPF]0-2FSumma Health Wadsworth - Rittman Medical CenterTroponin I.cardiac [Mass/volume] in Serum or Plasma by Detection limit <= 0.01 ng/Ordered By: Mary Al on 00-21-5917Wdaqidxm I.cardiac DL <= 0.01 ng/mL [Mass/Vol]4.9 pg/mL0.0-15.0[facility]S HospitalUrea nitrogen [Mass/volume] in Serum or PlasmaOrdered By: Mary Al on 44-79-9504Oljd nitrogen [Mass/Vol] 20 mg/dL7Day[facility] Children'S HospitalUrine bacteria detection by automated methodOrdered By: Mary Al on 57-35-0371Vzndocce Auto Ql (U)None seenNone SeenDayton Children'S HospitalUrine clarity by refractometry automatedOrdered By: Mary Al on 85-07-1155Dfllxtz Refractometry automated (U)ClearCleRegency Hospital Cleveland WestUrine culture routineOrdered By: Mary Al on 74-86-6723Ktxkkwdw identified Cx Nom (U)2 DaysDayton Children'S HospitalUrine glucose measurement by automated test strip (mass/volume)Ordered By: Mary Al on 75-76-2503Avdtzej Auto test strip (U) [Mass/Vol]Normal mg/dLNormalDayton Children'S HospitalUrine hemoglobin detection by automated test stripOrdered By: Mary Al on 10-25-2023 Hemoglobin Auto test strip Ql (U)TraceNegativeDayton Children'S Hospital Urine leukocyte esterase detection by automated test stripOrdered By: Mary Al on 26-37-4573Hrmaszgfj esterase Auto test strip Ql (U)2+Negative [facility] HospitalUrobilinogen Auto test strip (U) [Mass/Vol] Ordered By: Mary Al on 10-43-0302Mrjvezduedsd (U) [Mass/Vol]Normal mg/dL NormalDayton Children'S HospitalWBC Auto (Bld) [#/Vol]Ordered By: Mary Al on 59-12-1287ZBO (Bld) [#/Vol]14.4 10*3/uL3.8-11.6FSumma Health Wadsworth - Rittman Medical CenterpH Auto test strip (U)Ordered By: Mary Al on 63-30-0244sY (U)5.5 [pH]5.0-9.0[facility]S HospitalAlanine aminotransferase [Enzymatic activity/volume] in Serum or PlasmaOrdered By: Charles Baziz on 28-20-6143URL [Catalytic activity/Vol]12 U/L7-[facility] HospitalAlbumin [Mass/volume] in Serum or Plasma by Bromocresol green (BCG) dye binding methoOrdered By: Charles Bazzi on 31-25-0242Hqmaazm BCG dye [Mass/Vol]4.0 g/dL3.5-5.7FSumma Health Wadsworth - Rittman Medical CenterAlkaline phosphatase [Enzymatic activity/volume] in Serum or PlasmaOrdered By: Charles Bazzi on 68-26-3073CHQ [Catalytic activity/Vol]68 U/D35-396GatxjltgcDayton Children'S HospitalAspartate aminotransferase [Enzymatic activity/volume] in Serum or PlasmaOrdered By: Charles Bazzi on 10-83-3263DGL [Catalytic activity/Vol]12 U/I51-48QvtdeytbgDayton Children'S HospitalBasophils Auto (Bld) [#/Vol]Ordered By: Charles Bazzi on 10-24-2023 Basophils (Bld) [#/Vol]0.0 10*3/uL0.0-0.2FSumma Health [facility] Basophils/100 WBC Auto (Bld)Ordered By: Charles Bazzi on 36-68-7743Owsblfvnu/100 WBC (Bld)0.9 %.[facility]S HospitalBilirubin.total [Mass/volume] in Serum or PlasmaOrdered By: Charles Bazzi 03-61-4627Oudnfykoc [Mass/Vol]0.5 mg/dL0.3-1.0[facility] HospitalCalcium [Mass/volume] in Serum or PlasmaOrdered By: Charles Bazzi 64-49-2745Hklznyg [Mass/Vol]9.5 mg/dL8.6-10.3 [facility] HospitalCarbon dioxide, total [Moles/volume] in Serum or PlasmaOrdered By: Charles Bazzi on 11-66-7808HL5 [Moles/Vol]31.6 mmol/L21.0-31.0 [facility] HospitalChloride [Moles/volume] in Serum or Plasma Ordered By: Charles Bazzi on [id number] [Moles/Vol]105 mmol/L98-107 [facility] HospitalCholesterol [Mass/volume] in Serum or Plasma Ordered By: Charles Bazzi [id number] [Mass/Vol]187 mg/kO342-969 [facility] HospitalComment on above:Chol less than 200 mg/dl low riskChol 201-239 mg/dl borderline riskChol 240 mg/dl and greater high risk Cholesterol in LDL Calc [Mass/Vol]Ordered By: Charles Bazzi on 10-24-2023 Cholesterol in LDL [Mass/Vol]95 mg/dL0-100[facility] Comment on above:LDL ATP III CLASSIFICATIONLDL less than 100 mg/dL OptimalLDL 100-129 mg/dL Near or above [id number] mg/dL Borderline highLDL 160-189 mg/dL HighLDL greater than 189 mg/dL Very highCholesterol in VLDL Calc [Mass/Vol]Ordered By: Charles Bazzi on [id number] in VLDL [Mass/Vol]38 mg/dLDayton [facility] HospitalCreatinine [Mass/volume] in Serum or PlasmaOrdered By: Charles Bazzi on 63-44-0375Lkqjcztulv [Mass/Vol]0.71 mg/dL 0.60-1.20[facility]S HospitalEosinophils Auto (Bld) [#/Vol]Ordered By: Charles Bazzi on 96-44-3737Lcppignsmpm (Bld) [#/Vol]0.5 10*3/uL0.0-0.45 [place] [facility] HospitalEosinophils/100 WBC Auto (Bld)Ordered By: Charles Bazzi on 75-09-3089Dhbdsjwzebr/100 WBC (Bld)9.5 %.[facility] [facility]'S HospitalErythrocyte distribution width Auto (RBC) [Ratio]Ordered By: Charles Bazzi on 85-33-6243Cdbapmodjig distribution width (RBC) [Ratio]15.4 %11.9-15.3FSumma Health Wadsworth - Rittman Medical CenterGlobulin Calc (S) [Mass/Vol]Ordered By: Charles Bazzi on 02-85-1427Kqrgoqyj (S) [Mass/Vol]2.2 g/dLDayton Children'S Hospital Glucose [Mass/volume] in Serum or PlasmaOrdered By: Charles Bazzi on 10-24-2023 Glucose [Mass/Vol]77 mg/iJ85-343HysgsnxaeDayton Children'S HospitalComment on above:ADA recommended reference rangeRandom Glucose Reference Range is dependent on time and content of last meal. Glucose of more than 200 mg/dL in a nonstressed, ambulatory subject supports the diagnosisof Diabetes Mellitus. Glucose mean value [Mass/volume] in Blood Estimated from glycated hemoglobin Ordered By: Charles Bazzi on 41-64-4788Bmjqllc glucose Estimated from glycated hemoglobin (Bld) [Mass/Vol]111 mg/dLDayton Children'S HospitalHematocrit Auto (Bld) [Volume fraction]Ordered By: Charles Bazzi on 43-97-3113Xylekkttrh (Bld) [Volume fraction]34.2 %34.0-46.4FSumma Health Wadsworth - Rittman Medical CenterHemoglobin A1c percentageOrdered By: Charles Bazzi on 45-65-9020ZiH2p (Bld) [Mass fraction]5.5 % 4.3-5.6FSumma Health Wadsworth - Rittman Medical CenterComment on above:Increased risk for diabetes: 5.7 - 6.4diabetes: >6.4glycemic control for adults with diabetes: &l t;7.0Hemoglobin [Mass/volume] in BloodOrdered By: Charles Bazzi on 10-24-2023 Hemoglobin (Bld) [Mass/Vol]11.3 g/dL11.8-15.4FSumma Health Wad[facility] - [facility] Center Leukocytes [#/volume] corrected for nucleated erythrocytes in Blood by Automated counOrdered By: Charles Bazzi on 20-22-1141CFB corrected for nucl RBC Auto (Bld) [#/Vol]4.9 10*3/uL3.8-11.6FSumma Health Wadsworth - Rittman Medical CenterLymphocytes Auto (Bld) [#/Vol]Ordered By: Charles Bazzi on 84-35-1617Zjgvtzgklib (Bld) [#/Vol]1.0 10*3/uL1.00-4.8[facility]'S HospitalLymphocytes/100 WBC Auto (Bld) Ordered By: Charles Bazzi on 63-15-8994Akqxbictmor/100 WBC (Bld)20.9 %.[facility]S HospitalMCH Auto (RBC) [Entitic mass]Ordered By: Charles Bazzi on 23-65-1602ZVN (RBC) [Entitic mass]29.7 pg24.7-34.3FSumma Health Wadsworth - Rittman Medical CenterMCHC Auto (RBC) [Mass/Vol]Ordered By: Charles Bazzi on 45-45-1096JUHZ (RBC) [Mass/Vol]33.1 g/dL32.0-35.0[facility]S HospitalMCV Auto (RBC) [Entitic vol]Ordered By: Charles Bazzi on 10-75-9214JTC (RBC) [Entitic vol]89.9 fL 80-100Day[facility]S HospitalMonocytes Auto (Bld) [#/Vol]Ordered By: Charles Bazzi on 93-74-1365Wwqonruog (Bld) [#/Vol]0.5 10*3/uL0.0-0.8[facility]S HospitalMonocytes/100 WBC Auto (Bld)Ordered By: Charles Bazzi on 17-24-3522Egeslnugp/100 WBC (Bld)10.5 %.[facility] Neutrophils Auto (Bld) [#/Vol]Ordered By: Charles Bazzi on 62-25-9013Zrmxtoxnuph (Bld) [#/Vol]2.9 10*3/uL1.8-7.7FSumma Health Wadsworth - Rittman Medical CenterNeutrophils/100 WBC Auto (Bld)Ordered By: Charles Bazzi on 18-07-9573Aorkcicxxrr/100 WBC (Bld)58.2 %.[facility]S HospitalNo Panel InformationOrdered By: Charles Bazzi on 13-46-6965Tlkukajtf GFR (CKD-EPI)> 60.0 mL/MinDayton Children'S Hospital Pharmacy Creatinine Clearance (ChemN/[facility] CenterNucleated erythrocytes [Presence] in Blood by Automated countOrdered By: Charles Bazzi on 35-45-1844Acgoohmbp RBC Auto Ql (Bld)0.1 /100{WBC}0-0.5FSumma Health Wadsworth - Rittman Medical CenterPlatelet mean volume Auto (Bld) [Entitic vol]Ordered By: Charles Bazzi on 76-32-1281Ipbxtwci mean volume (Bld) [Entitic vol]6.6 fL6.3-10.7 [place] [facility] HospitalPlatelets Auto (Bld) [#/Vol]Ordered By: Charles Bazzi on 25-67-0748Zbeudbadw (Bld) [#/Vol]328 10*3/xO668-566PdvkgklofDayton Children'S HospitalPotassium [Moles/volume] in Serum or PlasmaOrdered By: Charles Bazzi on 10-96-4001Poaifhiqc [Moles/Vol]4.3 mmol/L3.5-5.1FSumma Health Wadsworth - Rittman Medical CenterProtein [Mass/volume] in Serum or PlasmaOrdered By: Charles Bazzi on 38-22-3760Baqttcw [Mass/Vol]6.2 g/dL6.4-8.9[facility]S HospitalRBC Auto (Bld) [#/Vol]Ordered By: Charles Bazzi on 65-14-9107LJV (Bld) [#/Vol]3.80 10*6/uL3.60-5.00[facility] Hospitalerum or plasma albumin/globulin mass ratioOrdered By: Charles Bazzi on 32-27-6788Arpbfiy/Globulin [Mass ratio]1.8 {ratio}[facility] Hospitalerum or plasma anion gap determinationOrdered By: Charles Bazzi on 69-42-9627Urodh gap [Moles/Vol]9.7 mmol/L6.0-15.0[facility] Hospitalerum or plasma high density lipoprotein (HDL) cholesterol measurementOrdered By: Charles Bazzi on 10-24-2023 Cholesterol in HDL [Mass/Vol]54 mg/eM12-46PnkmwtkscDayton Children'S Hospital Comment on above:HDL CHOL ATP-III CLASSIFICATION Cardiovascular RiskHDL > or equal to 60 mg/dL LOWHDL < 40 mg/dL HIGHSerum or plasma total cholesterol/high density lipoprotein (HDL) cholesterol mass ratOrdered By: Charles Bazzi on 39-38-7382Wizjmjubzgp.total/Cholesterol in HDL [Mass ratio]3.5 {ratio}<5.0 [facility] Hospitalodium [Moles/volume] in Serum or PlasmaOrdered By: Charles Bazzi on 74-99-6758Ekhped [Moles/Vol]142 mmol/Y559-936AoaecbvctDayton Children'S HospitalThyrotropin [Units/volume] in Serum or PlasmaOrdered By: Charles Bazzi on 35-37-4364BKI Qn2.33 m[IU]/L0.45-5.33[facility]'S HospitalTriglyceride [Mass/volume] in Serum or PlasmaOrdered By: Charles Bazzi on 18-32-5540Tkjfzlirfeyg [Mass/Vol]191 mg/dL0-149[facility] Comment on above:TRIG ATP III CLASSIFICATIONTRIG less than 150 mg/dL NormalTRIG 150-199 mg/dL Borderline highTRIG 200-500 mg/dL High TRIG greater than 500 mg/dL Very highStandard traceable to the Center for Disease Conrtrol and Prevention (CDC) test method.Urea nitrogen [Mass/volume] in Serum or PlasmaOrdered By: Charles Bazzi on 87-32-3571Dxnq nitrogen [Mass/Vol]21 mg/dL7-25Day[facility]'S HospitalWBC Auto (Bld) [#/Vol]Ordered By: Charles Bazzi on 65-34-2341PJC (Bld) [#/Vol]4.9 10*3/uL3.8-11.6FSumma Health Wadsworth - Rittman Medical CenterBasophils Auto (Bld) [#/Vol]on 26-39-5539Lpqjwhvbq (Bld) [#/Vol]0.04 10*3/uL<0.11Day[facility] HospitalBasophils/100 WBC Auto (Bld)on 65-07-8343Rtihcujyk/100 WBC (Bld)0.5 %[facility]S HospitalBlood manual differential comment interpretation narrativeon 37-50-4764Fpnsat differential comment Ankush (Bld) [Interp]AutoDayton Children'S HospitalCBC W Auto Differential panel (Bld) on 12-62-0025Nqsasnqhh (Bld) [#/Vol]0.04 10*3/uL<0.11 k/uLWadsworth-Rittman Hospital Basophils/100 WBC (Bld)0.5 %[facility] HospitalDifferential cell count method Nom (Bld)AutoCleveland ClinicEosinophils (Bld) [#/Vol]0.52 10*3/uLHigh<0.46 k/uL [facility] HospitalEosinophils/100 WBC (Bld)7.1 %[facility] HospitalErythrocyte distribution width (RBC) [Ratio]15.2 %High11.5 - 15.0 %[facility] Hematocrit (Bld) [Volume fraction]35.1 %Low36.0 - 46.0 %[facility] Hemoglobin (Bld) [Mass/Vol]11.7 g/dL11.5 - 15.5 g/dLWadsworth-Rittman HospitalImmature granulocytes (Bld) [#/Vol]0.04 10*3/uL<0.10 k/uLWadsworth-Rittman HospitalImmature granulocytes/100 WBC (Bld)0.5 %[facility] HospitalLymphocytes (Bld) [#/Vol]0.62 10*3/uLLow1.00 - 4.00 k/uLWadsworth-Rittman HospitalLymphocytes/100 WBC (Bld)8.5 % [facility] HospitalMCH (RBC) [Entitic mass]29.8 pg26.0 - 34.0 pgCOhioHealth Marion [facility] Hospital MCHC (RBC) [Mass/Vol]33.3 g/dL30.5 - 36.0 g/dLWadsworth-Rittman HospitalMCV (RBC) [Entitic vol]89.5 fL80.0 - 100.0 fLCohiohealth hardin memorial hospital ClinicMonocytes (Bld) [#/Vol]0.62 10*3/uL <0.87 k/uLWadsworth-Rittman HospitalMonocytes/100 WBC (Bld)8.5 %[facility] Neutrophils (Bld) [#/Vol]5.49 10*3/uL1.45 - 7.50 k/[facility] Neutrophils/100 WBC (Bld)74.9 %[facility] HospitalNucleated RBC (Bld) [#/Vol]<0.01 k/[facility] HospitalNucleated RBC/100 WBC (Bld) [Ratio]0.0 /100 WBCWadsworth-Rittman HospitalPlatelet mean volume (Bld) [Entitic vol]8.1 fLLow9.0 - 12.7 fLCohiohealth hardin memorial hospital ClinicPlatelets (Bld) [#/Vol]274 10*3/uL150 - 400 k/uLWadsworth-Rittman HospitalRBC (Bld) [#/Vol]3.92 10*6/uL3.90 - 5.20 m/uLWadsworth-Rittman HospitalWBC (Bld) [#/Vol]7.33 10*3/uL 3.70 - 11.00 k/uLWadsworth-Rittman HospitalComprehensive metabolic 2000 panelon 10-10-2023 Albumin [Mass/Vol]4.3 g/dL3.9 - 4.9 g/dLOreland ClinicALP [Catalytic activity/Vol]103 U/L34 - 123 U/LCleveland ClinicALT [Catalytic activity/Vol]15 U/L7 - 38 U/LCleveland ClinicAnion gap [Moles/Vol]12 mmol/L9 - 18 mmol/L [facility] HospitalAST [Catalytic activity/Vol]13 U/L13 - 35 U/LCleveland [facility] Bilirubin [Mass/Vol]0.2 mg/dL0.2 - 1.3 mg/dLWadsworth-Rittman HospitalCalcium [Mass/Vol] 9.3 mg/dL8.5 - 10.2 mg/dLWadsworth-Rittman HospitalChloride [Moles/Vol]114 mmol/LHigh97 - 105 mmol/LCleveland ClinicCO2 [Moles/Vol]22 mmol/L22 - 30 mmol/LCleveland [facility] Creatinine [Mass/Vol]0.70 mg/dL0.58 - 0.96 mg/dLWadsworth-Rittman HospitalEstimated Glomerular Filtration Rate93 mL/min/1.73m>=60 mL/min/1.73mCleveland [facility] Glucose [Mass/Vol]114 mg/vVZhpo84 - 99 mg/dLWadsworth-Rittman HospitalPotassium [Moles/Vol]4.2 mmol/L3.7 - 5.1 mmol/LCleveland ClinicProtein [Mass/Vol]6.6 g/dL 6.3 - 8.0 g/dLOhioHealth Dublin Methodist Hospitalodium [Moles/Vol]148 mmol/RNbwf320 - 144 mmol/L [facility] HospitalUrea nitrogen [Mass/Vol]22 mg/dLHigh7 - 21 mg/dLWadsworth-Rittman Hospital Eosinophils/100 WBC Auto (Bld)on 98-46-1814Lnxomanftur/100 WBC (Bld)7.1 % [place] [facility]S HospitalErythrocyte distribution width Auto (RBC) [Ratio]on 90-88-4597Dtxdctapkpv distribution width (RBC) [Ratio]15.2 %11.5-15.0 [place] [facility]S HospitalHematocrit Auto (Bld) [Volume fraction]on 59-36-9959Kwalzamztg (Bld) [Volume fraction]35.1 %36.0-46.0[place] [facility]S HospitalHemoglobin [Mass/volume] in Bloodon 21-60-9601Qukhscloap (Bld) [Mass/Vol]11.7 g/dL11.5-15.5FSumma Health Wadsworth - Rittman Medical CenterLaboratory - Chemistry and Chemistry - challengeon 05-12-0179Hmxyoib [Mass/Vol]4.3 g/dL 3.9-4.9[facility]S HospitalALP [Catalytic activity/Vol]103 U/L 34-123Day[facility]'S HospitalALT [Catalytic activity/Vol]15 U/L7-38 [place] [facility]S HospitalAST [Catalytic activity/Vol]13 U/L13-35 [place] [facility] HospitalBilirubin [Mass/Vol]0.2 mg/dL0.2-1.3FSumma Health Wadsworth - Rittman Medical CenterCalcium [Mass/Vol]9.3 mg/dL8.5-10.2FSumma Health Wadsworth - Rittman Medical CenterChloride [Moles/Vol]114 mmol/X32-280MesdqmlfwDayton Children'S HospitalCO2 [Moles/Vol]22 mmol/E01-03JjvdbmuohDayton Children'S HospitalCreatinine [Mass/Vol]0.70 mg/dL0.58-0.96[facility] HospitalGlucose [Mass/Vol] 114 mg/tP98-67KqrzyyspxDayton Children'S HospitalComment on above:The [place] Diabetes Association (ADA) provides guidance for cutoff [...] hyperglycemia or hyperglycemic crisis, random plasma glucose resultsgreater than or equal to 200 mg/dL meet the criteria for diagnosis of diabetes.Reference: [employer] in Diabetes 2016, [place] Diabetes Association. Diabetes Care. 2016.39(Suppl 1). Potassium [Moles/Vol]4.2 mmol/L3.7-5.1FSelect Medical Specialty Hospital - Cantonodium [Moles/Vol]148 mmol/E953-132YzikcegbxDayton Children'S HospitalUrea nitrogen [Mass/Vol]22 mg/dL7-21Day[facility]S HospitalLaboratory - Hematology and Cell countson 98-15-9068Eiyfkvlzqja (Bld) [#/Vol]0.52 10*3/uL<0.46[facility]S HospitalImmature granulocytes (Bld) [#/Vol]0.04 10*3/uL<0.10 [place] [facility] HospitalImmature granulocytes/100 WBC (Bld)0.5 % [place] [facility]S HospitalLeukocytes [#/volume] corrected for nucleated erythrocytes in Blood by Automated counon 43-52-0089TWQ corrected for nucl RBC Auto (Bld) [#/Vol]7.33 k/uL3.70-11.00[facility] Lymphocytes Auto (Bld) [#/Vol]on 99-00-2197Qvzpduqlesn (Bld) [#/Vol]0.62 10*3/uL 1.00-4.00[facility]S HospitalLymphocytes/100 WBC Auto (Bld)on 15-68-9534Zvlhtycypex/100 WBC (Bld)8.5 %[facility] HospitalH Auto (RBC) [Entitic mass]on 08-68-2422QNP (RBC) [Entitic mass]29.8 pg26.0-34.0 [place] [facility]S HospitalMCHC Auto (RBC) [Mass/Vol]on 94-98-2055HYZP (RBC) [Mass/Vol]33.3 g/dL30.5-36.0[facility]S HospitalMCV Auto (RBC) [Entitic vol]on 85-06-0758DEF (RBC) [Entitic vol]89.5 fL80.0-100.0 [place] [facility] HospitalMonocytes Auto (Bld) [#/Vol]on 10-10-2023 Monocytes (Bld) [#/Vol]0.62 10*3/uL<0.87[facility] Monocytes/100 WBC Auto (Bld)on 97-16-3892Dvpsqoztq/100 WBC (Bld)8.5 %[facility]S HospitalNeutrophils Auto (Bld) [#/Vol]on 28-95-1497Crnymvfuaqp (Bld) [#/Vol]5.49 10*3/uL1.45-7.50[facility] Neutrophils/100 WBC Auto (Bld)on 05-28-6182Zaakrmythqa/100 WBC (Bld)74.9 % [place] [facility]S HospitalNo Panel Informationon 95-73-4624Mbouasnjw GFR (CKD-EPI)93 mL/min/1.73m???>=60[facility]'S HospitalComment on above:Estimated Glomerular Filtration Rate (eGFR) is calculated using the 2020 CKD-EPI creatinine equation. This equation utilizes serum creatinine, sex, and age as parameters. The creatinine assay has traceable calibration to isotope dilution-mass spectrometry. Refer to KDIGO guidelines for clinical inte rpretation. In patients with unstable renal function, e.g. those with acute kidney injury, the eGFRmay not accurately reflect actual GFR.Nucleated RBC Auto (Bld) [#/Vol]on 79-80-3808Vdzixnujt RBC (Bld) [#/Vol]10*3/uL<0.01[facility]S HospitalNucleated erythrocytes [Presence] in Blood by Automated counton 21-30-1212Bykuwqwap RBC Auto Ql (Bld)0.0 /100{WBC}[facility]S HospitalPlatelet mean volume Auto (Bld) [Entitic vol]on 24-69-6153Zhflaqsg mean volume (Bld) [Entitic vol]8.1 fL9.0-12.7FSumma Health W[facility] Center Platelets Auto (Bld) [#/Vol]on 44-20-8331Hsmmegksb (Bld) [#/Vol]274 10*3/uL 150-400Day[facility]S HospitalProtein [Mass/volume] in Serum or Plasma on 28-07-1075Jiiqtkc [Mass/Vol]6.6 g/dL6.3-8.0[facility] RBC Auto (Bld) [#/Vol]on 42-50-8576BBP (Bld) [#/Vol]3.92 10*6/uL3.90-5.20 [facility] Hospitalerum or plasma anion gap determinationon 68-40-1549Yvkcn gap [Moles/Vol]12 mmol/L9-18[facility] Calcium [Mass/volume] in Serum or PlasmaOrdered By: Miguel Ángel Delgadillo on 10-01-2023 Calcium [Mass/Vol]8.7 mg/dL8.6-10.3FSumma Health Wadsworth - Rittman Medical CenterCarbon dioxide, total [Moles/volume] in Serum or PlasmaOrdered By: Miguel Ángel Delgadillo on 26-56-7984AV4 [Moles/Vol]29.6 mmol/L21.0-31.0[facility] Chloride [Moles/volume] in Serum or PlasmaOrdered By: Miguel Ángel Delgadillo on 09-93-8961Gilqghpw [Moles/Vol]108 mmol/G52-800LuujlhrmgDayton Children'S Hospital Creatinine [Mass/volume] in Serum or PlasmaOrdered By: Miguel Ángel Delgadillo on 57-45-3299Mwyuzqycpi [Mass/Vol]0.66 mg/dL0.60-1.20[facility]S HospitalErythrocyte distribution width Auto (RBC) [Ratio]Ordered By: Miguel Ángel Delgadillo on 49-92-0463Rovilzdxlhx distribution width (RBC) [Ratio]16.1 %11.9-15.3 [place] [facility] HospitalGlucose [Mass/volume] in Serum or PlasmaOrdered By: Miguel Ángel Delgadillo on 88-18-1993Ividcnp [Mass/Vol]93 mg/oU33-310XyxnndxzwDayton Children'S HospitalComment on above:ADA recommended reference rangeRandom Glucose Reference Range is dependent on time and content of last meal. Glucose of more than 200 mg/dL in a nonstressed, ambulatory subject supports the diagnosisof Diabetes Mellitus.Hematocrit Auto (Bld) [Volume fraction]Ordered By: Miguel Ángel Delgadillo on 23-98-2603Svzuvvnwsb (Bld) [Volume fraction]30.5 %34.0-46.4 [place] [facility] HospitalHemoglobin [Mass/volume] in BloodOrdered By: Miguel Ángel Delgadillo on 53-69-7562Nyaystnsyl (Bld) [Mass/Vol]10.3 g/dL11.8-15.4 [place] [facility] HospitalLeukocytes [#/volume] corrected for nucleated erythrocytes in Blood by Automated counOrdered By: Miguel Ángel Delgadillo on 10-01-2023 WBC corrected for nucl RBC Auto (Bld) [#/Vol]4.9 10*3/uL3.8-11.6FBethesda North HospitalH Auto (RBC) [Entitic mass]Ordered By: Miguel Ángel Delgadillo on 07-28-7139FUS (RBC) [Entitic mass]29.8 pg24.7-34.3FSumma Health Wadsworth - Rittman Medical CenterMCHC Auto (RBC) [Mass/Vol]Ordered By: Miguel Ángel Delgadillo on 98-27-4344WLPE (RBC) [Mass/Vol]33.9 g/dL32.0-35.0[facility]S HospitalMCV Auto (RBC) [Entitic vol]Ordered By: Miguel Ángel Delgadillo on 68-01-9824OBX (RBC) [Entitic vol]87.8 kO14-020GsmlsyvopDayton Children'S HospitalNo Panel InformationOrdered By: Miguel Ángel Delgadillo on 21-14-0182Tlssrhhbu GFR (CKD-EPI)> 60.0 mL/MinDayton Children'S HospitalPharmacy Creatinine Clearance (Chem61.17[facility]'S HospitalPlatelet mean volume Auto (Bld) [Entitic vol]Ordered By: Miguel Ángel Delgadillo on 81-10-7776Oquravhf mean volume (Bld) [Entitic vol]6.8 fL 6.3-10.7FSumma Health Wadsworth - Rittman Medical CenterPlatelets Auto (Bld) [#/Vol]Ordered By: Miguel Ángel Delgadillo on 03-82-0300Zlxzjdere (Bld) [#/Vol]257 10*3/oB596-419GhtpnurxvDayton Children'S HospitalPotassium [Moles/volume] in Serum or PlasmaOrdered By: Miguel Ángel Delgadillo on 70-18-4898Hytjbqlgm [Moles/Vol]4.1 mmol/L3.5-5.1FSumma Health Wadsworth - Rittman Medical CenterRBC Auto (Bld) [#/Vol]Ordered By: Miguel Ángel Delgadillo on 03-40-2685UZJ (Bld) [#/Vol]3.47 10*6/uL3.60-5.00[facility] Hospitalerum or plasma anion gap determinationOrdered By: Miguel Ángel Delgadillo on 16-07-9663Rwcgl gap [Moles/Vol]8.5 mmol/L6.0-15.0[facility] Hospitalodium [Moles/volume] in Serum or PlasmaOrdered By: Miguel Ángel Delgadillo on 52-25-6226Nbhsbb [Moles/Vol]142 mmol/Y236-538PkcubvpxeDayton Children'S Hospital Urea nitrogen [Mass/volume] in Serum or PlasmaOrdered By: Miguel Ángel Delgadillo on 18-86-1747Mclo nitrogen [Mass/Vol]10 mg/dL7-25[facility] Alanine aminotransferase [Enzymatic activity/volume] in Serum or PlasmaOrdered By: Patrice Springer on 07-03-7799NRZ [Catalytic activity/Vol]15 U/L7-52 [facility] HospitalAlbumin [Mass/volume] in Serum or Plasma by Bromocresol green (BCG) dye binding methoOrdered By: Patrice Springer on 67-91-0293Nmcrlsv BCG dye [Mass/Vol]4.1 g/dL3.5-5.7FSumma Health Wadsworth - Rittman Medical CenterAlkaline phosphatase [Enzymatic activity/volume] in Serum or PlasmaOrdered By: Patrice Springer on 86-45-4069IOX [Catalytic activity/Vol]68 U/L34-104 [facility] HospitalAspartate aminotransferase [Enzymatic activity/volume] in Serum or PlasmaOrdered By: Patrice Springer on 75-17-8717UOD [Catalytic activity/Vol]19 U/O68-79HaujjphmvDayton Children'S HospitalBasophils Auto (Bld) [#/Vol]Ordered By: Patrice Springer on 30-84-5887Dluljzzmb (Bld) [#/Vol]0.1 10*3/uL0.0-0.2FSumma Health Wadsworth - Rittman Medical CenterBasophils/100 WBC Auto (Bld)Ordered By: Patrice Springer on 35-06-1482Lrdcdvedi/100 WBC (Bld)1.2 %. [facility]S HospitalBilirubin.direct [Mass/volume] in Serum or PlasmaOrdered By: Patrice Springer on 06-78-3276Ypijqrnzm.direct [Mass/Vol]0.10 mg/dL0.03-0.18FSumma Health Wadsworth - Rittman Medical CenterBilirubin.total [Mass/volume] in Serum or PlasmaOrdered By: Patrice Springer on 22-54-7648Lewrcdmpc [Mass/Vol]0.5 mg/dL0.3-1.0[facility] HospitalCalcium [Mass/volume] in Serum or PlasmaOrdered By: Patrice Springer on 46-29-4416Rptgafe [Mass/Vol]9.8 mg/dL 8.6-10.3FSumma Health Wadsworth - Rittman Medical CenterCarbon dioxide, total [Moles/volume] in Serum or PlasmaOrdered By: Patrice Springer on 84-81-2238TZ7 [Moles/Vol]25.6 mmol/L21.0-31.0[facility] HospitalChloride [Moles/volume] in Serum or PlasmaOrdered By: Patrice Springer on 53-08-3192Hgwsovyg [Moles/Vol]105 mmol/T45-280GlkvfwezqDayton Children'S HospitalCreatinine [Mass/volume] in Serum or PlasmaOrdered By: Patrice Springer on 46-22-7230Rnokqcagah [Mass/Vol]0.72 mg/dL0.60-1.20[facility]S HospitalEosinophils Auto (Bld) [#/Vol] Ordered By: Patrice Springer on 62-88-9395Uqsxmeclxze (Bld) [#/Vol]0.7 10*3/uL 0.0-0.45Day[facility]S HospitalEosinophils/100 WBC Auto (Bld)Ordered By: Patrice Springer on 86-10-8879Ephjlakstxt/100 WBC (Bld)7.3 %.[facility]S HospitalErythrocyte distribution width Auto (RBC) [Ratio]Ordered By: Patrice Springer on 60-18-3430Bnsfakolsvh distribution width (RBC) [Ratio] 16.4 %11.9-15.3FSumma Health Wadsworth - Rittman Medical CenterGlobulin Calc (S) [Mass/Vol] Ordered By: Patrice Springer on 06-18-1835Dynqmlcc (S) [Mass/Vol]2.6 g/dL [facility] HospitalGlucose [Mass/volume] in Serum or PlasmaOrdered By: Patrice Springer on 33-93-9270Gdjwuuw [Mass/Vol]111 mg/dP73-119TziswpmlqDayton Children'S HospitalComment on above:ADA recommended reference rangeRandom Glucose Reference Range is dependent on time and content of last meal. Glucose of more than 200 mg/dL in a nonstressed, ambulatory subject supports the diagnosisof Diabetes Mellitus.Hematocrit Auto (Bld) [Volume fraction]Ordered By: Patrice Springer on 83-06-5459Kpsrwtyvyj (Bld) [Volume fraction]38.1 %34.0-46.4 [facility] HospitalHemoglobin [Mass/volume] in BloodOrdered By: Patrice Springer on 42-31-7103Ywknmymhbb (Bld) [Mass/Vol]12.7 g/dL11.8-15.4 [facility] HospitalLeukocytes [#/volume] corrected for nucleated erythrocytes in Blood by Automated counOrdered By: Patrice Springer on 54-67-1800VPL corrected for nucl RBC Auto (Bld) [#/Vol]9.5 10*3/uL3.8-11.6 [facility] HospitalLipase [Enzymatic activity/volume] in Serum or PlasmaOrdered By: Patrice Springer on 96-70-1615Ggrzub [Catalytic activity/Vol] 5.0 U/L11.0-82.0[facility]S HospitalLymphocytes Auto (Bld) [#/Vol] Ordered By: Patrice Springer on 08-26-8528Ujhnpuyixwi (Bld) [#/Vol]1.1 10*3/uL 1.00-4.8[facility]S HospitalLymphocytes/100 WBC Auto (Bld)Ordered By: Patrice Springer on 84-84-2323Eqabwinffqk/100 WBC (Bld)12.0 %.[facility] Auto (RBC) [Entitic mass]Ordered By: Patrice Springer on 68-66-7124UYT (RBC) [Entitic mass]29.2 pg24.7-34.3FGrand [facility] Joint [facility] Auto (RBC) [Mass/Vol]Ordered By: Patrice Springer on 20-50-3434KIPD (RBC) [Mass/Vol]33.3 g/dL32.0-35.0[facility] HospitalMCV Auto (RBC) [Entitic vol]Ordered By: Patrice Springer on 39-90-3708CXJ (RBC) [Entitic vol]87.7 jU74-775RyeomacooDayton Children'S HospitalMonocyte distribution width [Entitic volume] in Blood by AutomatedOrdered By: Patrice Springer on 09-30-2023 Monocyte distribution width Auto (Bld) [Entitic vol]15.40 %0.00-20.00[facility] HospitalMonocytes Auto (Bld) [#/Vol]Ordered By: Patrice Springer on 10-94-6633Dnfgbyafa (Bld) [#/Vol]0.8 10*3/uL0.0-0.8[facility] HospitalMonocytes/100 WBC Auto (Bld)Ordered By: Patrice Springer on 09-30-2023 Monocytes/100 WBC (Bld)8.0 %.[facility] HospitalNeutrophils Auto (Bld) [#/Vol]Ordered By: Patrice Springer on 03-38-0463Dveqquvspje (Bld) [#/Vol] 6.8 10*3/uL1.8-7.7FSumma Health Wadsworth - Rittman Medical CenterNeutrophils/100 WBC Auto (Bld)Ordered By: Patrice Springer on 01-16-9250Wisbupbvvcp/100 WBC (Bld)71.5 %. [facility] HospitalNo Panel InformationOrdered By: Patrice Springer on 38-93-4506Qmdjkpetl GFR (CKD-EPI)> 60.0 mL/MinDayton Children'S HospitalPharmacy Creatinine Clearance (Chem56.50[facility]S HospitalNucleated erythrocytes [Presence] in Blood by Automated countOrdered By: Patrice Springer on 28-27-3661Zrtpswtsi RBC Auto Ql (Bld)0.1 /100{WBC}0-0.5 [facility] HospitalPlatelet mean volume Auto (Bld) [Entitic vol] Ordered By: Patrice Springer on 45-90-5810Qhpcmrqo mean volume (Bld) [Entitic vol]6.6 fL6.3-10.7FSumma Health Wadsworth - Rittman Medical CenterPlatelets Auto (Bld) [#/Vol] Ordered By: Patrice Springer on 24-09-7348Ukwhfzoqi (Bld) [#/Vol]333 10*3/uL 150-450[facility]S HospitalPotassium [Moles/volume] in Serum or PlasmaOrdered By: Patrice Springer on 28-72-8207Bglhdqzap [Moles/Vol]3.9 mmol/L 3.5-5.1FSumma Health Wadsworth - Rittman [facility] CenterProtein [Mass/volume] in Serum or Plasma Ordered By: Patrice Springer on 01-44-7166Mvcrzds [Mass/Vol]6.7 g/dL6.4-8.9 [facility] HospitalRBC Auto (Bld) [#/Vol]Ordered By: Patrice Springer on 14-89-7542PLX (Bld) [#/Vol]4.35 10*6/uL3.60-5.00[facility] Hospitalerum or plasma albumin/globulin mass ratioOrdered By: Patrice Springer on 72-45-7852Qdedrps/Globulin [Mass ratio]1.6 {ratio}[facility] Hospitalerum or plasma anion gap determinationOrdered By: Patrice Springer on 02-70-7633Unnac gap [Moles/Vol]12.3 mmol/L6.0-15.0[facility] Hospitalerum or plasma non-glucuronidated bilirubin measurement (mass/volume)Ordered By: Patrice Springer on 47-84-3628Fojfqobso.indirect [Mass/Vol]0.4 mg/dLGuernsey Memorial Hospitalodium [Moles/volume] in Serum or PlasmaOrdered By: Patrice Springer on 37-67-2539Cfqoow [Moles/Vol]139 mmol/Q313-896NbfomypbsDayton Children'S HospitalUrea nitrogen [Mass/volume] in Serum or PlasmaOrdered By: Patrice Springer on 44-34-2582Itmp nitrogen [Mass/Vol]21 mg/dL7-25[facility] HospitalWBC Auto (Bld) [#/Vol] Ordered By: Patrice Springer on 74-97-1879WOH (Bld) [#/Vol]9.5 10*3/uL3.8-11.6 [facility] HospitalBasic metabolic 2000 panelon 14-35-4120Xoqyc gap [Moles/Vol]9 mmol/LNormal9-18Fcentral hospital HospitalComment on above:Order Comment: Specimen Type: BLOOD SPECIMENOrdering Facility: [facility] Address:[address] [place], [place] [address]Performed By: #### 2777- 1, 00554-7, ####[facility] LABORATORYCLIA [id number] [place] [address] [place] AMERICACalcium [Mass/Vol]8.7 mg/dLNormal 8.5-10.2Fcentral hospital HospitalComment on above:Order Comment: Specimen Type: BLOOD SPECIMENOrdering Facility: [facility] Address:[address] [place], [place] [address]Performed By: #### 2777-1, 30210-6, ####C[facility] LABORATORYCLIA [id number] [place] [id number] [place] AMERICAChloride [Moles/Vol]109 mmol/FAmps61-211Jrutzuqh HospitalComment on above:Order Comment: Specimen Type: BLOOD SPECIMENOrdering Facility: [facility] Address:[address] [place], [place] [address]Performed By: #### 2777-1, 20548-5, ####[facility] LABORATORYCLIA [id number] [place] [id number] [place] AMERICACO2 [Moles/Vol]25 mmol/LNormal 22-30Fabaystate noble hospital HospitalComment on above:Order Comment: Specimen Type: BLOOD SPECIMENOrdering Facility: [facility] Address:[address] [place], [place] [address]Performed By: #### 2777-1, 02489-0, ####C[facility] LABORATORYCLIA [id number] [place] [id number] [place] AMERICACreatinine [Mass/Vol]0.56 mg/dLLow0.58-0.96[facility] CenterComment on above:Order Comment: Specimen Type: BLOOD SPECIMENOrdering Facility: [facility] Address:[address] [place], [place] [address]Performed By: #### 2777-1, 95479-4, ####CORNEL[facility] LABORATORYCLIA [id number] [place] [id number] [place] AMERICACreatinine and Glomerular filtration rate.predicted panel (S/P/Bld)98 mL/min/1.73m???Normal>=60[facility] on above:Order Comment: Specimen Type: BLOOD SPECIMENOrdering Facility: [facility] Address:[address] [place], [place] [address]Result Comment: Estimated Glomerular Filtration Rate (eGFR) is [...] accurately reflect actual GFR. Performed By: #### 2777-1, 86340-6, ####CORNELIUS LABORATORYCLIA [id number] [place] [id number] [place] AMERICAGlucose [Mass/Vol]99 mg/iITwpitd59-00BplxdmqvUMass Memorial Medical Center on above:Order Comment: Specimen Type: BLOOD SPECIMENOrdering Facility: [facility] Address:[address] [place] [address]Mgcxcm Comment: The [place] Diabetes Association (ADA) provides guidance for cutoff [...] symptoms of hyperglycemia or hyperglycemic crisis, random plasmaglucose results greater than or equal to 200 mg/dL meet the criteria for diagnosis of diabetes.Reference: Standards of Medical Care in Diabetes 2016, [place] Diabetes Association. Diabetes Care. 2016.39(Suppl 1). Performed By: #### 2777-1, 64031-7, ####CORNEL[facility]US LABORATORYCLIA [id number] [place] [id number] [place] VIVEK Potassium [Moles/Vol]3.8 mmol/LNormal3.7-5.1Fcentral hospital HospitalComment on above: Order Comment: Specimen Type: BLOOD SPECIMENOrdering Facility: [facility] Address:[address] [place], [place] [address]Performed By: #### 2777- 1, 10635-9, ####CORNEL[facility]US LABORATORYCLIA [id number] [address] STATES [place] [facility]OSPITALSodium [Moles/Vol]143 mmol/LNormal 136-144Fabaystate noble hospital HospitalComment on above:Order Comment: Specimen Type: BLOOD SPECIMENOrdering Facility: [facility] Address:[address] [place], [place] [address]Performed By: #### 2777-1, 97612-7, ####CORNELIUS LABORATORYCLIA [id number] [place] [id number] [place] [facility]IAL HOSPITALUrea nitrogen [Mass/Vol]11 mg/dLNormal7-21[facility] CenterComment on above:Order Comment: Specimen Type: BLOOD SPECIMENOrdering Facility: [facility] Address:[address] [place], [place] [address]Performed By: #### 2777-1, 96823-6, ####CORNELIUS LABORATORYCLIA [id number] [place] [id number] [place] AMERICACASE MANAGEMon 92-38-8964ZTTK MANAGEMNormalFaNew England Rehabilitation Hospital [facility]ell panel Auto (Bld)on 45-12-5344Xiiyhbtlcjz distribution width (RBC) [Ratio]14.4 %Eephok74.5-15.0[facility]falls HospitalComment on above:Order Comment: Specimen Type: BLOOD SPECIMENOrdering Facility: [facility] Address:[address] [place], [place] [address]Performed By: #### 29896-6 ####CORNEL[facility]US LABORATORYCLIA [id number] [address]REETHematocrit (Bld) [Volume fraction]31.1 %Low 36.0-46.0Fabaystate noble hospital HospitalComment on above:Order Comment: Specimen Type: BLOOD SPECIMENOrdering Facility: [facility] Address:[address] [place], [place] [address]Performed By: #### 68169-8 ####CORNELIUS LABORATORYCLIA [id number] [place] [address] [place] [facility] Hemoglobin (Bld) [Mass/Vol]10.3 g/dLLow11.5-15.5Fcentral hospital HospitalComment on above:Order Comment: Specimen Type: BLOOD SPECIMENOrdering Facility: [facility] Address:[address] [place], [place] [address]Performed By: #### 59697-5 ####C[facility]EL[facility]US LABORATORYCLIA [id number] [address]ETMCH (RBC) [Entitic mass]29.3 yfYrrrqx11.0-34.0 [facility] HospitalComment on above:Order Comment: Specimen Type: BLOOD SPECIMENOrdering Facility: [facility] Address:[address] [place], [place] [address]Performed By: #### 74947-8 ####CORNEL[facility] LABORATORYCLIA [id number] [place] [address] [facility] CENTERMCHC (RBC) [Mass/Vol]33.1 g/iFKawdhp79.5-36.0[facility] HospitalComment on above:Order Comment: Specimen Type: BLOOD SPECIMENOrdering Facility: [facility] Address:[address] [place], [place] [address]Performed By: #### 78384- 2 ####C[facility] LABORATORYCLIA [id number] [place] [id number] [place] AMERICAMCV (RBC) [Entitic vol]88.6 iTUhqtbt22.0-100.0Fabaystate noble hospital HospitalComment on above:Order Comment: Specimen Type: BLOOD SPECIMENOrdering Facility: [facility] Address:[address] [place], [place] [address]Performed By: #### 10427-5 ####C[facility]EL[facility] LABORATORYCLIA [id number] [place] [id number] [place] AMERICANucleated RBC (Bld) [#/Vol]10*3/uLNormal<0.01Fabaystate noble hospital HospitalComment on above:Order Comment: Specimen Type: BLOOD SPECIMENOrdering Facility: [facility] Address:[address] [place], [place] [address]Performed By: #### 02842-6 ####CORNEL[facility] LABORATORYCLIA [id number] [place] [address] [place] AMERICAPlatelet mean volume (Bld) [Entitic vol]8.5 fLLow 9.0-12.7Fcentral hospital HospitalComment on above:Order Comment: Specimen Type: BLOOD SPECIMENOrdering Facility: [facility] Address:[address] [place], [place] [address]Performed By: #### 66362-7 ####CORNEL[facility] LABORATORYCLIA [id number] [place] [id number] [place] VIVEK Platelets (Bld) [#/Vol]319 10*3/kNIjxjoe859-373Usjwwiao HospitalComment on above:Order Comment: Specimen Type: BLOOD SPECIMENOrdering Facility: [facility] Address:[address] [place], [place] [address]Performed By: #### 83172-7 ####C[facility]EL[facility] LABORATORYCLIA [id number] [place] [id number] [place] AMERICARBC (Bld) [#/Vol]3.51 10*6/uLLow3.90-5.20Fabaystate noble hospital HospitalComment on above:Order Comment: Specimen Type: BLOOD SPECIMENOrdering Facility: [facility] Address:[address] [place], [place] [address]Performed By: #### 00141-9 ####C[facility]EL[facility] LABORATORYCLIA [id number] [place] [id number] [place] AMERICAWBC (Bld) [#/Vol]5.11 10*3/uLNormal3.70-11.00[facility] Medical CenterComment on above:Order Comment: Specimen Type: BLOOD SPECIMENOrdering Facility: [facility] Address:[facility] [place] [address]Performed By: #### 73844-6 ####[facility] LABORATORYCLIA [id number] [place] [id number] [facility] CENTERCNDSon 31-63-8676UWKOPusfmdQjztsgsw HospitalCONSULTon 46-41-9825XEKEGLE NormalHolyoke Medical CenterErythrocyte distribution width Auto (RBC) [Ratio]on 56-90-5145Umwegvotgvs distribution width (RBC) [Ratio]14.4 %11.5-15.0[facility]'S HospitalHematocrit Auto (Bld) [Volume fraction]on 09-04-2023 Hematocrit (Bld) [Volume fraction]31.1 %36.0-46.0[facility]'S HospitalHemoglobin [Mass/volume] in Bloodon 80-22-3899Xxroxinqdf (Bld) [Mass/Vol] 10.3 g/dL11.5-15.5FSumma Health Wadsworth - Rittman Medical CenterLaboratory - Chemistry and Chemistry - challengeon 43-00-9275Mpsaobz [Mass/Vol]8.7 mg/dL8.5-10.2FSumma Health Wadsworth - Rittman Medical CenterChloride [Moles/Vol]109 mmol/H29-906JyognkuzgDayton Children'S HospitalCO2 [Moles/Vol]25 mmol/I44-79DcjssyyfiDayton Children'S Hospital Creatinine [Mass/Vol]0.56 mg/dL0.58-0.96[facility] HospitalGlucose [Mass/Vol]99 mg/mL10-99LxjxqdfooDayton Children'S HospitalComment on above:The [place] Diabetes Association (ADA) provides guidance for cutoff [...] hyperglycemia or hyperglycemic crisis, random plasma glucose resultsgreater than or equal to 200 mg/dL meet the criteria for diagnosis of diabetes.Reference: Standardsof Medical Care in Diabetes 2016, [place] Diabetes Association. Diabetes Care. 2016.39(Suppl 1).Magnesium [Mass/Vol]1.8 mg/dL1.7-2.3FSumma Health Wadsworth - Rittman Medical CenterPotassium [Moles/Vol]3.8 mmol/L3.7-5.1FSumma Health Wadsworth - [facility]itt[facility] Center Sodium [Moles/Vol]143 mmol/O025-998EslvluauzDayton Children'S HospitalUrea nitrogen [Mass/Vol]11 mg/dL7-21Day[facility] Children'S HospitalLeukocytes [#/volume] corrected for nucleated erythrocytes in Blood by Automated counon 19-11-1232FZQ corrected for nucl RBC Auto (Bld) [#/Vol]5.11 k/uL3.70-11.00 [facility] Auto (RBC) [Entitic mass]on 42-24-8329GLE (RBC) [Entitic mass]29.3 pg26.0-34.0[facility]'S HospitalMCHC Auto (RBC) [Mass/Vol]on 90-91-6419SNLD (RBC) [Mass/Vol]33.1 g/dL30.5-36.0[facility]S HospitalMCV Auto (RBC) [Entitic vol]on 54-86-5531KMB (RBC) [Entitic vol]88.6 fL80.0-100.0[facility]S HospitalMagnesium SerPl-mCncon 09-97-1975Hkusmkmsv [Mass/Vol]1.8 mg/dLNormal1.7-2.3FCharlton Memorial HospitalComment on above:Order Comment: Specimen Type: BLOOD SPECIMENOrdering Facility: [facility] Address:[address] [place], [place] [address]Performed By: #### 2777-1, 11913-7, 14536-0 ####C[facility]ELIUS LABORATORYCLIA [id number] [place] [address] [place] AMERICANURSING PROGon 08-63-4567UOZENQY PROGNormalHolyoke Medical CenterNo Panel Informationon 87-26-8600Sgsrqfmgr GFR (CKD-EPI)98 mL/min/1.73m???>=60[facility]'S HospitalComment on above:Estimated Glomerular Filtration Rate (eGFR) is calculated using the 2020 CKD-EPI creatinine equation. This equation utilizes serum creatinine, sex, and age as parameters. The creatinine assay has traceable calibration to isotope dilution-mass spectrometry. Refer to KDIGO guidelines for clinical interpretation. In patients with unstable renal function, e.g. those with acute kidney injury, the eGFRmay not accurately reflect actual GFR. Phosphorus Level4.6 mg/dL2.7-4.8Day[facility] Children'S HospitalNucleated RBC Auto (Bld) [#/Vol]on 05-57-8351Uwcshaadx RBC (Bld) [#/Vol]10*3/uL<0.01[facility]'S HospitalPhosphate SerPl-mCncon 95-80-9626Gqkcwbbng [Mass/Vol]4.6 mg/dLNormal2.7-4.8[facility] Medical CenterComment on above:Order Comment: Specimen Type: BLOOD SPECIMENOrdering Facility: [facility] Address:[address] [place], [place] [address]Performed By: #### 2777-1, 07887-8, 16678-5 ####C[facility]ELI[facility] LABORATORYCLIA [id number] [place] [address] [place] AMERICAPlatelet mean volume Auto (Bld) [Entitic vol]on 39-97-4169Xhgkefjq mean volume (Bld) [Entitic vol]8.5 fL9.0-12.7FSumma Health Wadsworth - Rittman Medical CenterPlatelets Auto (Bld) [#/Vol]on 84-46-8240Vkllblgip (Bld) [#/Vol]319 10*3/bD402-877NscqbzovgDayton Children'S HospitalRBC Auto (Bld) [#/Vol] on 22-10-9280BTK (Bld) [#/Vol]3.51 10*6/uL3.90-5.20Gu[facility] Hospitalerum or plasma anion gap determinationon 49-67-7645Dnsvt gap [Moles/Vol]9 mmol/L9-18FSumma Health Wadsworth - Rittman Medical CenterBasic metabolic 2000 panelon 42-51-3081Tplil gap [Moles/Vol]9 mmol/LNormal9-18Fcentral hospital HospitalComment on above:Order Comment: Specimen Type: BLOOD SPECIMENOrdering Facility: [facility] Address:[address] [place], [place] [address]Performed By: #### 70226-8, 277-, 45696-8 ####C[facility] LABORATORYCLIA [id number] [place] [id number] [place] AMERICACalcium [Mass/Vol]8.9 mg/dL Normal8.5-10.2Fcentral hospital HospitalComment on above:Order Comment: Specimen Type: BLOOD SPECIMENOrdering Facility: [facility] Address:[address] [place], [place] [address]Performed By: #### 32066-7, 2776-07, 62858-7 ####CORNEL[facility] LABORATORYCLIA [id number] [place] [id number] [place] AMERICAChloride [Moles/Vol]105 mmol/PIfsglq68-533Mvqdivra HospitalComment on above:Order Comment: Specimen Type: BLOOD SPECIMENOrdering Facility: [facility] Address:[address] [place], [place] [address]Performed By: #### 38300-5, 2776-07, 65781-8 ####C[facility] LABORATORYCLIA [id number] [place] [address] [place] AMERICACO2 [Moles/Vol]27 mmol/AHqqjfy13-47Xkvzvjwk HospitalComment on above:Order Comment: Specimen Type: BLOOD SPECIMENOrdering Facility: [facility] Address:[address] [place], [place] [address]Performed By: #### 01555-4, 27701-07, 64389-7 ####CORNELI[facility] LABORATORYCLIA [id number] [place] [id number] [place] AMERICACreatinine [Mass/Vol]0.57 mg/dLLow0.58-0.96 [facility] Medical CenterComment on above:Order Comment: Specimen Type: BLOOD SPECIMENOrdering Facility: [facility] Address:[address] [place], [place] [address]Performed By: #### 80048-1, 2777-1, 36151-9 ####[facility] LABORATORYCLIA [id number] [place] [id number] [place] AMERICACreatinine and Glomerular filtration rate.predicted panel (S/P/Bld)98 mL/min/1.73m???Normal>=60[facility] Medical CenterComment on above:Order Comment: Specimen Type: BLOOD SPECIMENOrdering Facility: [facility] Address:[address] [place], [place] [address]Result Comment: Estimated Glomerular Filtration Rate (eGFR) is calculated using the 2020 CKD-EPI creatinine equation. This equation utilizes serum creatinine, sex, and age as parameters. The creatinine assay has traceable calibration to isotope dilution-mass spectrometry. Refer to KDIGO guidelines for clinical interpretation. In patients with unstable renal function, e.g. those with acute kidney injury, the eGFR may not accurately reflect actual GFR.Performed By: #### 33764-4, 2777-1, 14439-0 ####[facility] LABORATORYCLIA [id number] [place] [id number] [place] AMERICAGlucose [Mass/Vol]105 mg/xXQvzn92-78Izaywztq Hospital Comment on above:Order Comment: Specimen Type: BLOOD SPECIMENOrdering Facility: [facility] Address:[address] [place], [place] [address]Result Comment: The [place] Diabetes Association (ADA) provides guidance for cutoff values for fasting glucose and random glucose. The ADA defines fasting as no caloric intake for at least 8 hours. Fasting plasma glucose results between 100 to 125 mg/dL indicate increased risk for diabetes (prediabetes).Fasting plasma glucose results greater than or equal to 126 mg/dL meet the criteria for diagno sis of diabetes. In the absence of unequivocal hyperglycemia, results should be confirmed by repeattesting. In a patient with classic symptoms of hyperglycemia or hyperglycemic crisis, random plasmaglucose results greater than or equal to 200 mg/dL meet the criteria for diagnosis of diabetes.Reference: Standards of Medical Care in Diabetes 2016, [place] Diabetes Association. Diabetes Care. 2016.39(Suppl 1).Performed By: #### 56130-9, 2777-1, 93615-3 ####CORN[facility] LABORATORYCLIA [id number] [place] [id number] [place] AMERICAPotassium [Moles/Vol]3.7 mmol/LNormal3.7-5.1Fcentral hospital HospitalComment on above:Order Comment: Specimen Type: BLOOD SPECIMENOrdering Facility: [facility] Address:[address] [place], [place] [address]Performed By: #### 11911-8, 2777-1, 35440-0 ####CORNELI[facility] LABORATORYCLIA [id number] [place] [address] [facility] CENTERSodium [Moles/Vol]141 mmol/L Nqwrqt441-949Tdymihwz HospitalComment on above:Order Comment: Specimen Type: BLOOD SPECIMENOrdering Facility: [facility] Address:[address] [place], [place] [address]Performed By: #### 62443-6, 2777-1, 20723-0 ####CORNELI[facility] LABORATORYCLIA [id number] [place] [id number] [place] AMERICAUrea nitrogen [Mass/Vol]10 mg/dLNormal7-21Fabaystate noble hospital HospitalComment on above:Order Comment: Specimen Type: BLOOD SPECIMENOrdering Facility: [facility] Address:[address] [place], [place] [address]Performed By: #### 24860-9, 2777-1, 12427-8 ####CORNELI[facility] LABORATORYCLIA [id number] [place] [id number] [facility] CENTERCBC panel Auto (Bld)on 13-41-0624Qupwnpxpkqu distribution width (RBC) [Ratio]14.3 % Dziuvc44.5-15.0Fabaystate noble hospital HospitalComment on above:Order Comment: Specimen Type: BLOOD SPECIMENOrdering Facility: [facility] Address:[address] [place], [place] [address]Performed By: #### 43633-0 ####CORNELIUS LABORATORYCLIA [id number] [place] [id number] [facility] Hematocrit (Bld) [Volume fraction]30.5 %Low36.0-46.0Fabaystate noble hospital HospitalComment on above:Order Comment: Specimen Type: BLOOD SPECIMENOrdering Facility: [facility] Address:[address] [place], [place] [address]Performed By: #### 03622-5 ####CORNELIUS LABORATORYCLIA [id number] [address]ETHemoglobin (Bld) [Mass/Vol]10.1 g/dLLow11.5-15.5 [facility]falls HospitalComment on above:Order Comment: Specimen Type: BLOOD SPECIMENOrdering Facility: [facility] Address:[address] [place], [place] [address]Performed By: #### 95504-6 ####CORN[facility] LABORATORYCLIA [id number] [address] (RBC) [Entitic mass]29.4 vpQxwzqw89.0-34.0Fabaystate noble hospital HospitalComment on above: Order Comment: Specimen Type: BLOOD SPECIMENOrdering Facility: [facility] Address:[address] [place], [place] [address]Performed By: #### 27301- 2 ####C[facility] LABORATORYCLIA [id number] [place] [address] [facility] CENTERMCHC (RBC) [Mass/Vol]33.1 g/rLQzrdbv16.5-36.0Fabaystate noble hospital HospitalComment on above:Order Comment: Specimen Type: BLOOD SPECIMENOrdering Facility: [facility] Address:[address] [place], [place] [address]Performed By: #### 30562-9 ####C[facility] LABORATORYCLIA [id number] [address] (RBC) [Entitic vol] 88.9 bJIaqezs63.0-100.0Fabaystate noble hospital HospitalComment on above:Order Comment: Specimen Type: BLOOD SPECIMENOrdering Facility: [facility] Address:[address] [place], [place] [address]Performed By: #### 54812-3 ####C[facility] LABORATORYCLIA [id number] [place] [id number] [place] [facility] AMERICANucleated RBC (Bld) [#/Vol]10*3/uLNormal<0.01Fabaystate noble hospital HospitalComment on above:Order Comment: Specimen Type: BLOOD SPECIMENOrdering Facility: [facility] Address:[address] [place], [place] [address]Performed By: #### 80591-5 ####C[facility] LABORATORYCLIA [id number] [place] [id number] [place] [facility] MEDICAL CENTERPlatelet mean volume (Bld) [Entitic vol]8.7 fLLow 9.0-12.7Fcentral hospital HospitalComment on above:Order Comment: Specimen Type: BLOOD SPECIMENOrdering Facility: [facility] Address:[address] [place], [place] [address]Performed By: #### 40147-7 ####C[facility] LABORATORYCLIA [id number] [place] [id number] [facility] Platelets (Bld) [#/Vol]306 10*3/aBHmxrlh358-624Wkvrlztl HospitalComment on above:Order Comment: Specimen Type: BLOOD SPECIMENOrdering Facility: [facility] Address:[address] [place], [place] [address]Performed By: #### 11307-2 ####C[facility] LABORATORYCLIA [id number] [place] [id number] [place] AMERICARBC (Bld) [#/Vol]3.43 10*6/uLLow3.90-5.20Fabaystate noble hospital HospitalComment on above:Order Comment: Specimen Type: BLOOD SPECIMENOrdering Facility: [facility] Address:[address] [place], [place] [address]Performed By: #### 83343-0 ####C[facility] LABORATORYCLIA [id number] [place] [address] [place] AMERICAWBC (Bld) [#/Vol]5.15 10*3/uLNormal3.70-11.00[facility] Medical CenterComment on above:Order Comment: Specimen Type: BLOOD SPECIMENOrdering Facility: [facility] Address:[address] [id number] By: #### 49994-8 ####[facility] LABORATORYCLIA [id number] [place] [id number] [place] AMERICAErythrocyte distribution width Auto (RBC) [Ratio]on 09-03-2023 Erythrocyte distribution width (RBC) [Ratio]14.3 %11.5-15.0[facility]'S HospitalHematocrit Auto (Bld) [Volume fraction]on 45-96-8015Uqqqmqbawv (Bld) [Volume fraction]30.5 %36.0-46.0[facility] Hemoglobin [Mass/volume] in Bloodon 18-74-6538Pdbbnavghx (Bld) [Mass/Vol]10.1 g/dL11.5-15.5FSumma Health Wadsworth - Rittman Medical CenterLaboratory - Chemistry and Chemistry - challengeon 49-24-7836Wvfyuls [Mass/Vol]8.9 mg/dL8.5-10.2FSumma Health Wadsworth - Rittman Medical CenterChloride [Moles/Vol]105 mmol/X95-902XalvraupvDayton Children'S HospitalCO2 [Moles/Vol]27 mmol/I73-51QykaabduyDayton Children'S Hospital Creatinine [Mass/Vol]0.57 mg/dL0.58-0.96[facility] HospitalGlucose [Mass/Vol]105 mg/yH17-67ZojgrhxazDayton Children'S HospitalComment on above:The [place] [employer] (ADA) provides guidance for cutoff [...] hyperglycemia or hyperglycemic crisis, random plasma glucose resultsgreater than or equal to 200 mg/dL meet the criteria for diagnosis of diabetes.Reference: [employer] Diabetes 2016, [place] [employer]. Diabetes Care. 2016.39(Suppl 1).Magnesium [Mass/Vol]1.9 mg/dL1.7-2.3FSumma Health Wadsworth - Rittman Medical CenterPotassium [Moles/Vol]3.7 mmol/L3.7-5.1FSumma [facility] Sodium [Moles/Vol]141 mmol/U526-275UnwrjtjwlDayton Children'S HospitalUrea nitrogen [Mass/Vol]10 mg/dL7-21[facility]'S HospitalLeukocytes [#/volume] corrected for nucleated erythrocytes in Blood by Automated counon 78-39-0808SUM corrected for nucl RBC Auto (Bld) [#/Vol]5.15 k/uL3.70-11.00 [facility]S HospitalMCH Auto (RBC) [Entitic mass]on 96-06-9539NSG (RBC) [Entitic mass]29.4 pg26.0-34.0[facility]'S HospitalMCHC Auto (RBC) [Mass/Vol]on 95-83-6625QIXH (RBC) [Mass/Vol]33.1 g/dL30.5-36.0[facility]S HospitalMCV Auto (RBC) [Entitic vol]on 82-63-3524WFH (RBC) [Entitic vol]88.9 fL80.0-100.0[facility]S HospitalMagnesium SerPl-mCncon 39-02-1922Wcfabbvnk [Mass/Vol]1.9 mg/dLNormal1.7-2.3Fairselect medical specialty hospital [facility], inc HospitalComment on above:Order Comment: Specimen Type: BLOOD SPECIMENOrdering Facility: [facility] Address:[address] [place], [place] [address]Performed By: #### 71136-0, 2777-1, 62535-9 ####[facility] LABORATORYCLIA [id number] [place] [address] [place] OF AMERICANURSING PROGon 21-43-3207ZYOKXYL PROGNormalFairselect medical specialty hospital [facility], inc HospitalNo Panel Informationon 24-14-7637Jtsifakec GFR (CKD-EPI)98 mL/min/1.73m???>=60[facility]S HospitalComment on above:Estimated Glomerular Filtration Rate (eGFR) is calculated using the 2020 CKD-EPI creatinine equation. This equation utilizes serum creatinine, sex, and age as parameters. The creatinine assay has traceable calibration to isotope dilution-mass spectrometry. Refer to KDIGO guidelines for clinical interpretation. In patients with unstable renal function, e.g. those with acute kidney injury, the eGFRmay not accurately reflect actual GFR. Phosphorus Level3.7 mg/dL2.7-4.8[facility]'S HospitalNucleated RBC Auto (Bld) [#/Vol]on 64-17-7097Kcnelfvtx RBC (Bld) [#/Vol]10*3/uL<0.01[facility]S HospitalPhosphate SerPl-mCncon 59-60-1349Oyrdffrmy [Mass/Vol]3.7 mg/dLNormal2.7-4.8[facility] CenterComment on above:Order Comment: Specimen Type: BLOOD SPECIMENOrdering Facility: [facility] Address:[address] [place], [place] [address]Performed By: #### 78412-5, 2777-1, 22500-1 ####[facility] LABORATORYCLIA [id number] [place] [address] [place] AMERICAPlatelet mean volume Auto (Bld) [Entitic vol]on 82-64-4116Kyzfexkm mean volume (Bld) [Entitic vol]8.7 fL9.0-12.7FSumma Health [facility]ittman Medical CenterPlatelets Auto (Bld) [#/Vol]on 51-66-3602Nizurofuh (Bld) [#/Vol]306 10*3/rL662-436JpuaphfkhDayton Children'S HospitalRBC Auto (Bld) [#/Vol] on 40-80-0096FST (Bld) [#/Vol]3.43 10*6/uL3.90-5.20[facility] Hospitalerum or plasma anion gap determinationon 23-64-5714Obdpw gap [Moles/Vol]9 mmol/L9-18FSumma Health [facility] Medical CenterBasic metabolic 2000 panelon 40-00-6154Qvirl gap [Moles/Vol]13 mmol/LNormal9-18Fcentral hospital HospitalComment on above:Order Comment: Specimen Type: BLOOD SPECIMENOrdering Facility: [facility] Address:[address] [place], [place] [address]Performed By: #### 2777-1, 13500-5, ####[facility] LABORATORYCLIA [id number] [place] [id number] [place] OF AMERICACalcium [Mass/Vol]8.7 mg/dL Normal8.5-10.2Fcentral hospital HospitalComment on above:Order Comment: Specimen Type: BLOOD SPECIMENOrdering Facility: [facility] Address:[address] [place], [place] [address]Performed By: #### 2777-1, , ####CORNELI[facility] LABORATORYCLIA [id number] [place] [address] [place] OF AMERICAChloride [Moles/Vol]106 mmol/RKegc89-872Jkpgdchc HospitalComment on above:Order Comment: Specimen Type: BLOOD SPECIMENOrdering Facility: [facility] Address:[address] [place], [place] [address]Performed By: #### 2777-1, , ####C[facility] LABORATORYCLIA [id number] [place] [address] [place] AMERICACO2 [Moles/Vol]26 mmol/PBrggkd84-93Gasugwsx HospitalComment on above:Order Comment: Specimen Type: BLOOD SPECIMENOrdering Facility: [facility] Address:[address] [place], [place] [address]Performed By: #### 2777-1, 25517-1, ####CORN[facility] LABORATORYCLIA [id number] [place] [id number] [place] AMERICACreatinine [Mass/Vol]0.61 mg/dLNormal0.58-0.96 [facility] HospitalComment on above:Order Comment: Specimen Type: BLOOD SPECIMENOrdering Facility: [facility] Address:[address] [place], [place] [address]Performed By: #### 2777-1, 78498-9, ####CORNELI[facility] LABORATORYCLIA [id number] [place] [id number] [place] AMERICACreatinine and Glomerular filtration rate.predicted panel (S/P/Bld)96 mL/min/1.73m???Normal>=60[facility] CenterComment on above:Order Comment: Specimen Type: BLOOD SPECIMENOrdering Facility: [facility] Address:[address] [place], [place] [address]Result Comment: Estimated Glomerular Filtration Rate (eGFR) is calculated using the 2020 CKD-EPI creatinine equation. This equation utilizes serum creatinine, sex, and age as parameters. The creatinine assay has traceable calibration to isotope dilution-mass spectrometry. Refer to KDIGO guidelines for clinical interpretation. In patients with unstable renal function, e.g. those with acute kidney injury, the eGFR may not accurately reflect actual GFR.Performed By: #### 2777-1, 75401-7, ####C[facility] LABORATORYCLIA [id number] [place] [id number] [place] OF AMERICAGlucose [Mass/Vol]84 mg/lKZcqitn82-35[facility] Comment on above:Order Comment: Specimen Type: BLOOD SPECIMENOrdering Facility: [facility] Address:[address] [place], [place] [address]ult Comment: The [place] Diabetes Association (ADA) provides guidance for cutoff values for fasting glucose and random glucose. The ADA defines fasting as no caloric intake for at least 8 hours. Fasting plasma glucose results between 100 to 125 mg/dL indicate increased risk for diabetes (prediabetes).Fasting plasma glucose results greater than or equal to 126 mg/dL meet the criteria for diagno sis of diabetes. In the absence of unequivocal hyperglycemia, results should be confirmed by repeattesting. In a patient with classic symptoms of hyperglycemia or hyperglycemic crisis, random plasmaglucose results greater than or equal to 200 mg/dL meet the criteria for diagnosis of diabetes.Reference: Standards of Medical Care in Diabetes 2016, [place] Diabetes Association. Diabetes Care. 2016.39(Suppl 1).Performed By: #### 2777-1, 05325-3, ####CORNELI[facility] LABORATORYCLIA [id number] [place] [address] [place] AMERICAPotassium [Moles/Vol]3.5 mmol/LLow3.7-5.1FCharlton Memorial HospitalComment on above:Order Comment: Specimen Type: BLOOD SPECIMENOrdering Facility: [facility] Address:[address] [place], [place] [address]Performed By: #### 2777-1, 72775-7, ####CORNEL[facility] LABORATORYCLIA [id number] [place] [id number] [place] OF AMERICASodium [Moles/Vol]145 mmol/L Fvxt065-026Vjrqsuyg HospitalComment on above:Order Comment: Specimen Type: BLOOD SPECIMENOrdering Facility: [facility] Address:[address] [place], [place] [address]Performed By: #### 2777-1, 19886-6, ####C[facility] LABORATORYCLIA [id number] [place] [id number] [place] AMERICAUrea nitrogen [Mass/Vol]22 mg/dLHigh7-21[facility] Medical CenterComment on above:Order Comment: Specimen Type: BLOOD SPECIMENOrdering Facility: [facility] Address:[address] [place], [place] [address]Performed By: #### 2777-1, 33910-2, ####CORN[facility] LABORATORYCLIA [id number] [place] [id number] [place] OF AMERICACBC panel Auto (Bld)on 63-39-0651Rblrguawztk distribution width (RBC) [Ratio]14.6 %Kikzva39.5-15.0 [facility] CenterComment on above:Order Comment: Specimen Type: BLOOD SPECIMENOrdering Facility: [facility] Address:[address] [place], [place] [address]Performed By: #### 47549-9 ####CORNEL[facility] LABORATORYCLIA [id number] [place] [id number] [place] Hematocrit (Bld) [Volume fraction]33.2 %Low36.0-46.0Fabaystate noble hospital HospitalComment on above:Order Comment: Specimen Type: BLOOD SPECIMENOrdering Facility: [facility] Address:[address] [place], [place] [address]Performed By: #### 70607-3 ####CORNEL[facility] LABORATORYCLIA [id number] [address]ETHemoglobin (Bld) [Mass/Vol]10.8 g/dLLow11.5-15.5 [facility] HospitalComment on above:Order Comment: Specimen Type: BLOOD SPECIMENOrdering Facility: [facility] Address:[address] [place], [place] [address]Performed By: #### 03550-3 ####C[facility] LABORATORYCLIA [id number] [address] (RBC) [Entitic mass]29.4 zxSnmbpd05.0-34.0Fabaystate noble hospital HospitalComment on above: Order Comment: Specimen Type: BLOOD SPECIMENOrdering Facility: [facility] Address:[address] [place], [place] [address]Performed By: #### 21775- 2 ####C[facility] LABORATORYCLIA [id number] [address]ETMCHC (RBC) [Mass/Vol]32.5 g/lQVnmmqs03.5-36.0Fabaystate noble hospital HospitalComment on above:Order Comment: Specimen Type: BLOOD SPECIMENOrdering Facility: [facility] Address:[address] [place], [place] [address]Performed By: #### 25277-7 ####C[facility] LABORATORYCLIA [id number] [address] (RBC) [Entitic vol] 90.5 jVKwiugy71.0-100.0Fabaystate noble hospital HospitalComment on above:Order Comment: Specimen Type: BLOOD SPECIMENOrdering Facility: [facility] Address:[address] [place], [place] [address]Performed By: #### 10042-2 ####C[facility] LABORATORYCLIA [id number] [place] [id number] [place] AMERICANucleated RBC (Bld) [#/Vol]10*3/uLNormal<0.01Fabaystate noble hospital HospitalComment on above:Order Comment: Specimen Type: BLOOD SPECIMENOrdering Facility: [facility] Address:[address] [place], [place] [address]Performed By: #### 78437-3 ####C[facility] LABORATORYCLIA [id number] [place] [id number] [place] AMERICAPlatelet mean volume (Bld) [Entitic vol]8.4 fLLow 9.0-12.7Fcentral hospital HospitalComment on above:Order Comment: Specimen Type: BLOOD SPECIMENOrdering Facility: [facility] Address:[address] [place], [place] [address]Performed By: #### 16046-6 ####C[facility] LABORATORYCLIA [id number] [place] [id number] [place] Platelets (Bld) [#/Vol]290 10*3/gQJnxqjo928-778Cxudhull HospitalComment on above:Order Comment: Specimen Type: BLOOD SPECIMENOrdering Facility: [facility] Address:[address] [place], [place] [address]Performed By: #### 22734-2 ####C[facility] LABORATORYCLIA [id number] [place] [id number] [place] AMERICARBC (Bld) [#/Vol]3.67 10*6/uLLow3.90-5.20Fabaystate noble hospital HospitalComment on above:Order Comment: Specimen Type: BLOOD SPECIMENOrdering Facility: [facility] Address:[address] [place], [place] [address]Performed By: #### 67418-6 ####C[facility] LABORATORYCLIA [id number] [place] [id number] [place] AMERICAWBC (Bld) [#/Vol]5.87 10*3/uLNormal3.70-11.00Fabaystate noble hospital HospitalComment on above:Order Comment: Specimen Type: BLOOD SPECIMENOrdering Facility: [facility] Address:[address] [place] [place], [place] [address]Performed By: #### 27790-2 ####VIPINLISSETH LABORATORYCLIA [id number] [place] [address] [place] AMERICAErythrocyte distribution width Auto (RBC) [Ratio]on 09-02-2023 Erythrocyte distribution width (RBC) [Ratio]14.6 %11.5-15.0[facility]S HospitalHematocrit Auto (Bld) [Volume fraction]on 81-22-9298Xvwqywfxcn (Bld) [Volume fraction]33.2 %36.0-46.0[facility] Hemoglobin [Mass/volume] in Bloodon 17-24-4549Iqanyusfwu (Bld) [Mass/Vol]10.8 g/dL11.5-15.5FSumma Health [facility]ittman Medical CenterLaboratory - Chemistry and Chemistry - challengeon 88-27-9281Tvmoppy [Mass/Vol]8.7 mg/dL8.5-10.2FSumma Health W[facility] - [facility]itt[facility] Medical CenterChloride [Moles/Vol]106 mmol/G94-110ZytfayxqgDayton Children'S HospitalCO2 [Moles/Vol]26 mmol/E10-90IahckuqovDayton Children'S Hospital Creatinine [Mass/Vol]0.61 mg/dL0.58-0.96[facility] HospitalGlucose [Mass/Vol]84 mg/lN86-74TvxwdyqyjDayton Children'S HospitalComment on above:The [place] Diabetes Association (ADA) provides guidance for cutoff [...] hyperglycemia or hyperglycemic crisis, random plasma glucose resultsgreater than or equal to 200 mg/dL meet the criteria for diagnosis of diabetes.Reference: Standardsof Medical Care in Diabetes 2016, [place] Diabetes Association. Diabetes Care. 2016.39(Suppl 1).Magnesium [Mass/Vol]2.1 mg/dL1.7-2.3FSumma Health W[facility]ittman Medical CenterPotassium [Moles/Vol]3.5 mmol/L3.7-5.1FSumma Health [facility] Sodium [Moles/Vol]145 mmol/Z845-151ZrszclnwtDayton Children'S HospitalUrea nitrogen [Mass/Vol]22 mg/dL7-21[facility] HospitalLeukocytes [#/volume] corrected for nucleated erythrocytes in Blood by Automated counon 03-86-4680MBE corrected for nucl RBC Auto (Bld) [#/Vol]5.87 k/uL3.70-11.00 [facility] HospitalMCH Auto (RBC) [Entitic mass]on 35-84-4977BBJ (RBC) [Entitic mass]29.4 pg26.0-34.0[facility]S HospitalMCHC Auto (RBC) [Mass/Vol]on 87-19-8476JJWR (RBC) [Mass/Vol]32.5 g/dL30.5-36.0[facility] HospitalMCV Auto (RBC) [Entitic vol]on 58-09-8668IIN (RBC) [Entitic vol]90.5 fL80.0-100.0[facility] HospitalMagnesium SerPl-mCncon 84-02-3302Jidwvwcyf [Mass/Vol]2.1 mg/dLNormal1.7-2.3FCharlton Memorial HospitalComment on above:Order Comment: Specimen Type: BLOOD SPECIMENOrdering Facility: [facility] Address:[address] [place], [place] [address]Performed By: #### 2777-1, 74064-4, 97801-1 ####[facility]ITALLISSETH LABORATORYCLIA [id number] [place] [address] [place] AMERICANURSING PROGon 35-25-7995QRPRAKF PROGNormalFabaystate noble hospital HospitalNo Panel Informationon 33-61-1741Wmslxxvyw GFR (CKD-EPI)96 mL/min/1.73m???>=60[facility]S HospitalComment on above:Estimated Glomerular Filtration Rate (eGFR) is calculated using the 2020 CKD-EPI creatinine equation. This equation utilizes serum creatinine, sex, and age as parameters. The creatinine assay has traceable calibration to isotope dilution-mass spectrometry. Refer to KDIGO guidelines for clinical interpretation. In patients with unstable renal function, e.g. those with acute kidney injury, the eGFRmay not accurately reflect actual GFR. Phosphorus Level3.5 mg/dL2.7-4.8[facility]'S HospitalNucleated RBC Auto (Bld) [#/Vol]on 09-97-0680Yuntaremz RBC (Bld) [#/Vol]10*3/uL<0.01[facility] HospitalPhosphate SerPl-mCncon 53-73-2388Ufyhprpfz [Mass/Vol]3.5 mg/dLNormal2.7-4.8Fabaystate noble hospital HospitalComment on above:Order Comment: Specimen Type: BLOOD SPECIMENOrdering Facility: [facility] Address:[address] [place], [place] [address]Performed By: #### 2777-1, 58587-5, 47630-4 ####C[facility] LABORATORYCLIA [id number] [place] [address] [place] AMERICAPlatelet mean volume Auto (Bld) [Entitic vol]on 65-38-7563Pjegcvpg mean volume (Bld) [Entitic vol]8.4 fL9.0-12.7FSumma Health Wad[facility] - Rittman Medical CenterPlatelets Auto (Bld) [#/Vol]on 28-56-3477Cypswizfh (Bld) [#/Vol]290 10*3/jA694-506JcodwpfuyDayton Children'S HospitalRBC Auto (Bld) [#/Vol] on 51-39-2577HZQ (Bld) [#/Vol]3.67 10*6/uL3.90-5.20[facility] Hospitalerum or plasma anion gap determinationon 08-04-2844Mxvbz gap [Moles/Vol] 13 mmol/L9-18FSumma Health [facility] Medical CenterBasic metabolic 2000 panelon 84-30-8256Jhuug gap [Moles/Vol]13 mmol/LNormal9-18FCharlton Memorial HospitalComment on above:Order Comment: Specimen Type: BLOOD SPECIMENOrdering Facility: [facility] Address:[address] [place], [place] [address]Performed By: #### 23206-6, 2776-07, ####C[facility] LABORATORYCLIA [id number] [place] [address] [place] AMERICACalcium [Mass/Vol]8.8 mg/dL Normal8.5-10.2FCharlton Memorial HospitalComment on above:Order Comment: Specimen Type: BLOOD SPECIMENOrdering Facility: [facility] Address:[address] [place], [place] [address]Performed By: #### 72290-3, 2776-07, ####CORN[facility] LABORATORYCLIA [id number] [place] [id number] [place] AMERICAChloride [Moles/Vol]101 mmol/MXyuyre36-516Aobswgbs HospitalComment on above:Order Comment: Specimen Type: BLOOD SPECIMENOrdering Facility: [facility] Address:[address] [place], [place] [address]Performed By: #### 50211-8, 2776-07, ####[facility] LABORATORYCLIA [id number] [place] [id number] [place] AMERICACO2 [Moles/Vol]27 mmol/FKclftr68-01Xkfvtmya HospitalComment on above:Order Comment: Specimen Type: BLOOD SPECIMENOrdering Facility: [facility] Address:[address] [place], [place] [address]Performed By: #### 38794-6, 2776-07, ####CORN[facility] LABORATORYCLIA [id number] [place] [id number] [place] AMERICACreatinine [Mass/Vol]0.77 mg/dLNormal0.58-0.96 [facility] CenterComment on above:Order Comment: Specimen Type: BLOOD SPECIMENOrdering Facility: [facility] Address:[address] [place], [place] [address]Performed By: #### 66104-2, 2776-07, ####CORN[facility] LABORATORYCLIA [id number] [place] [id number] [place] AMERICACreatinine and Glomerular filtration rate.predicted panel (S/P/Bld)83 mL/min/1.73m???Normal>=60[facility] CenterComment on above:Order Comment: Specimen Type: BLOOD SPECIMENOrdering Facility: [facility] Address:[address] [place], [place] [address]Result Comment: Estimated Glomerular Filtration Rate (eGFR) is calculated using the 2020 CKD-EPI creatinine equation. This equation utilizes serum creatinine, sex, and age as parameters. The creatinine assay has traceable calibration to isotope dilution-mass spectrometry. Refer to KDIGO guidelines for clinical interpretation. In patients with unstable renal function, e.g. those with acute kidney injury, the eGFR may not accurately reflect actual GFR.Performed By: #### 38917-8, 2777-, ####[facility] LABORATORYCLIA [id number] [place] [id number] [place] AMERICAGlucose [Mass/Vol]95 mg/gQSiyzyv01-66Llslpycb Hospital Comment on above:Order Comment: Specimen Type: BLOOD SPECIMENOrdering Facility: [facility] Address:[address] [place], [place] [address]Result Comment: The [place] Diabetes Association (ADA) provides guidance for cutoff values for fasting glucose and random glucose. The ADA defines fasting as no caloric intake for at least 8 hours. Fasting plasma glucose results between 100 to 125 mg/dL indicate increased risk for diabetes (prediabetes).Fasting plasma glucose results greater than or equal to 126 mg/dL meet the criteria for diagno sis of diabetes. In the absence of unequivocal hyperglycemia, results should be confirmed by repeattesting. In a patient with classic symptoms of hyperglycemia or hyperglycemic crisis, random plasmaglucose results greater than or equal to 200 mg/dL meet the criteria for diagnosis of diabetes.Reference: Standards of Medical Care in Diabetes 2016, [place] Diabetes Association. Diabetes Care. 2016.39(Suppl 1).Performed By: #### 53945-0, 2777, ####[facility] LABORATORYCLIA [id number] [place] [id number] [place] AMERICAPotassium [Moles/Vol]4.2 mmol/LNormal3.7-5.1FCharlton Memorial HospitalComment on above:Order Comment: Specimen Type: BLOOD SPECIMENOrdering Facility: [facility] Address:[address] [place], [place] [address]Performed By: #### 84355-0, 2776-07, ####[facility] LABORATORYCLIA [id number] [place] [id number] [place] [facility] HOSPITALSodium [Moles/Vol]141 mmol/L Jahinp717-907Vkdcgfrv HospitalComment on above:Order Comment: Specimen Type: BLOOD SPECIMENOrdering Facility: [facility] Address:[address] [place], [place] [address]Performed By: #### 76348-3, 2776-07, ####C[facility] LABORATORYCLIA [id number] [place] [id number] [place] [facility] MEDICAL CENTERUrea nitrogen [Mass/Vol]22 mg/dLHigh7-21[facility] CenterComment on above:Order Comment: Specimen Type: BLOOD SPECIMENOrdering Facility: [facility] Address:[address] [place], [place] [address]Performed By: #### 52964-0, 2776-07, ####C[facility] LABORATORYCLIA [id number] [place] [id number] [place] AMERICACASE MANAGEMon 18-62-5195EIQA MANAGEMNormalHeywood Hospital panel Auto (Bld)on 35-86-2577Vyglgsthrsu distribution width (RBC) [Ratio]15.2 %High11.5-15.0 [facility] on above:Order Comment: Specimen Type: BLOOD SPECIMENOrdering Facility: [facility] Address:[address] [place], [place] [address]Performed By: #### 26517-9 ####CORN[facility] LABORATORYCLIA [id number] [place] [id number] [place] Hematocrit (Bld) [Volume fraction]35.3 %Low36.0-46.0[facility] CenterComment on above:Order Comment: Specimen Type: BLOOD SPECIMENOrdering Facility: [facility] Address:[address] [place], [place] [address]Performed By: #### 93249-2 ####C[facility] LABORATORYCLIA [id number] [address]ETHemoglobin (Bld) [Mass/Vol]11.8 g/dLNormal 11.5-15.5Fcentral hospital HospitalComment on above:Order Comment: Specimen Type: BLOOD SPECIMENOrdering Facility: [facility] Address:[address] [place], [place] [address]Performed By: #### 07013-3 ####C[facility] LABORATORYCLIA [id number] [address] (RBC) [Entitic mass]29.6 kvLekzbw72.0-34.0Fabaystate noble hospital HospitalComment on above: Order Comment: Specimen Type: BLOOD SPECIMENOrdering Facility: [facility] Address:[address] [place], [place] [address]Performed By: #### 32665- 2 ####[facility] LABORATORYCLIA [id number] [address] (RBC) [Mass/Vol]33.4 g/iWHmoeey82.5-36.0Fabaystate noble hospital HospitalComment on above:Order Comment: Specimen Type: BLOOD SPECIMENOrdering Facility: [facility] Address:[address] [place], [place] [address]Performed By: #### 57025-4 ####[facility] LABORATORYCLIA [id number] [address] (RBC) [Entitic vol] 88.7 kVBpptpf61.0-100.0Fabaystate noble hospital HospitalComment on above:Order Comment: Specimen Type: BLOOD SPECIMENOrdering Facility: [facility] Address:[address] [place], [place] [address]Performed By: #### 99303-0 ####[facility] LABORATORYCLIA [id number] [address] RBC (Bld) [#/Vol]10*3/uLNormal<0.01Fabaystate noble hospital HospitalComment on above:Order Comment: Specimen Type: BLOOD SPECIMENOrdering Facility: [facility] Address:[address] [place], [place] [address]Performed By: #### 29449-9 ####C[facility] LABORATORYCLIA [id number] [place] [address] [place] AMERICAPlatelet mean volume (Bld) [Entitic vol]8.5 fLLow 9.0-12.7Fcentral hospital HospitalComment on above:Order Comment: Specimen Type: BLOOD SPECIMENOrdering Facility: [facility] Address:[address] [place], [place] [address]Performed By: #### 85175-4 ####[facility] LABORATORYCLIA [id number] [place] [id number] [place] Platelets (Bld) [#/Vol]297 10*3/qQPdmsdf505-343Mtxefxnq HospitalComment on above:Order Comment: Specimen Type: BLOOD SPECIMENOrdering Facility: [facility] Address:[address] [place], [place] [address]Performed By: #### [id number] ####[facility] LABORATORYCLIA [id number] [place] [id number] [place] AMERICARBC (Bld) [#/Vol]3.98 10*6/uLNormal3.90-5.20 [facility] HospitalComment on above:Order Comment: Specimen Type: BLOOD SPECIMENOrdering Facility: [facility] Address:[address] [place], [place] [address]Performed By: #### 97420-3 ####CORNELIUS LABORATORYCLIA [id number] [place] [id number] [place] OF AMERICAWBC (Bld) [#/Vol]5.99 10*3/uLNormal3.70-11.00Grandfalls HospitalComment on above:Order Comment: Specimen Type: BLOOD SPECIMENOrdering Facility: [facility] Address:[address] [place], [place] [address]Performed By: #### 43394- 2 ####CORNELIUS LABORATORYCLIA [id number] [place] [address] [place] AMERICAErythrocyte distribution width Auto (RBC) [Ratio]on 12-17-9735Btcsdsbkiua distribution width (RBC) [Ratio]15.2 %11.5-15.0[facility]'S HospitalHematocrit Auto (Bld) [Volume fraction]on 09-01-2023 Hematocrit (Bld) [Volume fraction]35.3 %36.0-46.0[facility]S HospitalHemoglobin [Mass/volume] in Bloodon 24-71-2541Nhnhpfykjc (Bld) [Mass/Vol] 11.8 g/dL11.5-15.5FSumma Health Wadsworth - Rittman Medical CenterLaboratory - Chemistry and Chemistry - challengeon 34-35-0106Rerzhoe [Mass/Vol]8.8 mg/dL8.5-10.2FSumma Health Wadsworth - Rittman Medical CenterChloride [Moles/Vol]101 mmol/R03-139XiwylkeomDayton Children'S HospitalCO2 [Moles/Vol]27 mmol/Y99-51QevjdihhyDayton Children'S Hospital Creatinine [Mass/Vol]0.77 mg/dL0.58-0.96[facility] HospitalGlucose [Mass/Vol]95 mg/vY40-93KqzyqdvftDayton Children'S HospitalComment on above:The [place] Diabetes Association (ADA) provides guidance for cutoff [...] hyperglycemia or hyperglycemic crisis, random plasma glucose resultsgreater than or equal to 200 mg/dL meet the criteria for diagnosis of diabetes.Reference: Standardsof Medical Care in Diabetes 2016, Scottish Diabetes Association. Diabetes Care. 2016.39(Suppl 1).Magnesium [Mass/Vol]2.2 mg/dL1.7-2.3FSumma Health Wadsworth - Rittman Medical CenterPotassium [Moles/Vol]4.2 mmol/L3.7-5.1FSumma Health Wadsworth - Rittman Medical Center Sodium [Moles/Vol]141 mmol/N584-719TpoakzzjjDayton Children'S HospitalUrea nitrogen [Mass/Vol]22 mg/dL7-21[facility]S HospitalLeukocytes [#/volume] corrected for nucleated erythrocytes in Blood by Automated counon 10-80-9657DUW corrected for nucl RBC Auto (Bld) [#/Vol]5.99 k/uL3.70-11.00 [facility] HospitalH Auto (RBC) [Entitic mass]on 96-17-3230EXU (RBC) [Entitic mass]29.6 pg26.0-34.0[facility]'S HospitalMCHC Auto (RBC) [Mass/Vol]on 23-62-3243YGBZ (RBC) [Mass/Vol]33.4 g/dL30.5-36.0[facility] HospitalMCV Auto (RBC) [Entitic vol]on 47-26-0707MHK (RBC) [Entitic vol]88.7 fL80.0-100.0[facility] HospitalMagnesium SerPl-mCncon 09-54-0162Wdbutaeik [Mass/Vol]2.2 mg/dLNormal1.7-2.3FCharlton Memorial HospitalComment on above:Order Comment: Specimen Type: BLOOD SPECIMENOrdering Facility: [facility] Address:[address] [place], [place] [address]Performed By: #### 72461-0, 2777-1, 77055-6 ####ELKINS LABORATORYCLIA [id number] [address] Panel Informationon 11-38-2495Yzhsvatrq GFR (CKD-EPI)83 mL/min/1.73m???>=60 [facility]S HospitalComment on above:Estimated Glomerular Filtration Rate (eGFR) is calculated using the 2020 CKD-EPI creatinine equation. This equation utilizes serum creatinine, sex, and age as parameters. The creatinine assay has traceable calibration to isotope dilution-mass spectrometry. Refer to KDIGO guidelines for clinical interpretation. In patients with unstable renal function, e.g. those with acute kidney injury, the eGFRmay not accurately reflect actual GFR.Phosphorus Level4.3 mg/dL2.7-4.8[facility]S HospitalNucleated RBC Auto (Bld) [#/Vol]on 55-64-1870Ecsajqnqh RBC (Bld) [#/Vol]10*3/uL<0.01[facility]S HospitalPhosphate SerPl-mCncon 52-72-7654Zgvjtstpf [Mass/Vol]4.3 mg/dLNormal2.7-4.8Grandfalls HospitalComment on above:Order Comment: Specimen Type: BLOOD SPECIMENOrdering Facility: [facility] Address:[address] [place], [place] [address]Performed By: #### 75501-7, 2777-1, 36270-0 ####CORNELIUS LABORATORYCLIA [id number] [place] [address] [place] Platelet mean volume Auto (Bld) [Entitic vol]on 43-51-2393Yawthdll mean volume (Bld) [Entitic vol]8.5 fL9.0-12.7FSumma Health Wadsworth - Rittman Medical CenterPlatelets Auto (Bld) [#/Vol]on 78-35-0308Xqjzvtsrh (Bld) [#/Vol]297 10*3/sO958-089WnkqjnqqiDayton Children'S HospitalRBC Auto (Bld) [#/Vol]on 04-98-1477RHA (Bld) [#/Vol]3.98 10*6/uL3.90-5.20[facility] Hospitalerum or plasma anion gap determinationon 08-59-8768Rxnmx gap [Moles/Vol]13 mmol/L9-18FSumma Health Wadsworth - Rittman Medical CenterALLIED HEALTHon 69-53-2272DBIYDYEly-Bloomenson Community HospitalAutomated epithelial cells count in urine sediment (number/area)on 02-80-3662Ptdqhuvlmv cells Auto (Urine sed) [#/Area]Few [HPF][facility]S HospitalAutomated leukocytes count in urine sediment (number/area)on 07-75-1889PHM Auto (Urine sed) [#/Area]3-5 /HPF0-3 /HPF [facility] HospitalAutomated urine hyaline casts count (number/volume)on 12-70-8994Yrnbolu casts Auto (U) [#/Vol]4-10 /LPF0 /LPF [facility] HospitalAutomated urine specific gravity by refractometryon 34-58-5003Pxfamkhv gravity Refractometry automated (U) [Rel density]>1.0501.005-1.030[facility]S HospitalBasophils Auto (Bld) [#/Vol]on 25-30-7179Awtmxwgil (Bld) [#/Vol]10*3/uL<0.11[facility]S HospitalBasophils/100 WBC Auto (Bld)on 80-96-8861Jrkrwjweq/100 WBC (Bld) 0.2 %[facility]S HospitalBilirubin Auto test strip (U) [Mass/Vol]on 45-14-3194Vonbjeses (U) [Mass/Vol]NegativeNegativeDayton Children'S HospitalBlood manual differential comment interpretation narrativeon 08-31-2023 Manual differential comment Ankush (Bld) [Interp]AutoDayton Children'S HospitalCASE MGT INIT ASSESon 28-21-4024OJKP MGT INIT [facility] CBC W Auto Differential panel (Bld)on 57-53-1833Ulcjxusqd (Bld) [#/Vol]10*3/uL Normal<0.11Grandfalls HospitalComment on above:Order Comment: Specimen Type: BLOOD SPECIMENOrdering Facility: [facility] Address:[address] [place], [place] [address]Performed By: #### 40358-7 ####CORNELIUS LABORATORYCLIA [id number] [place] [address] [place] Basophils/100 WBC (Bld)0.2 %NormalGrandfalls HospitalComment on above:Order Comment: Specimen Type: BLOOD SPECIMENOrdering Facility: [facility] Address:[address] [place], [place] [address]Performed By: #### 17229- 8 ####CORNELIUS LABORATORYCLIA [id number] [place] [address] [place] AMERICADifferential cell count method Nom (Bld)AutoNormal Grandfalls HospitalComment on above:Order Comment: Specimen Type: BLOOD SPECIMENOrdering Facility: [facility] Address:[address] [place], [place] [address]Performed By: #### 21697-2 ####CORNELIUS LABORATORYCLIA [id number] [place] [id number] [place] Eosinophils (Bld) [#/Vol]0.09 10*3/uLNormal<0.46Fabaystate noble hospital HospitalComment on above:Order Comment: Specimen Type: BLOOD SPECIMENOrdering Facility: [facility] Address:[address] [place], [place] [address]Performed By: #### 68111-2 ####CORNELIUS LABORATORYCLIA [id number] [place] [id number] [place] [facility] CENTEREosinophils/100 WBC (Bld)1.0 %NormalGrandfalls HospitalComment on above:Order Comment: Specimen Type: BLOOD SPECIMENOrdering Facility: [facility] Address:[address] [place], [place] [address]Performed By: #### 55030-4 ####CORNELIUS LABORATORYCLIA [id number] [place] [id number] [place] AMERICAErythrocyte distribution width (RBC) [Ratio]14.6 %Qkdrai83.5-15.0Grandfalls HospitalComment on above:Order Comment: Specimen Type: BLOOD SPECIMENOrdering Facility: [facility] Address:[address] [place], [place] [address]Performed By: #### 66890-6 ####CORNELIUS LABORATORYCLIA [id number] [place] [id number] [place] OF AMERICAHematocrit (Bld) [Volume fraction]40.9 %Normal 36.0-46.0Fabaystate noble hospital HospitalComment on above:Order Comment: Specimen Type: BLOOD SPECIMENOrdering Facility: [facility] Address:[address] [place], [place] [address]Performed By: #### 92560-6 ####CORNELIUS LABORATORYCLIA [id number] [place] [id number] [place] Hemoglobin (Bld) [Mass/Vol]14.4 g/vUXogpuf99.5-15.5Fcentral hospital HospitalComment on above:Order Comment: Specimen Type: BLOOD SPECIMENOrdering Facility: [facility] Address:[address] [place], [place] [address]Performed By: #### 16864-4 ####CORNELIUS LABORATORYCLIA [id number] [place] [id number] [place] AMERICAImmature granulocytes (Bld) [#/Vol]0.08 10*3/uL Normal<0.10Grandfalls HospitalComment on above:Order Comment: Specimen Type: BLOOD SPECIMENOrdering Facility: [facility] Address:[address] [place], [place] [address]Performed By: #### 10351-1 ####CORNELIUS LABORATORYCLIA [id number] [place] [address] [place] Immature granulocytes/100 WBC (Bld)0.9 %NormalGrandfalls HospitalComment on above: Order Comment: Specimen Type: BLOOD SPECIMENOrdering Facility: [facility] Address:[address] [place], [place] [address]Performed By: #### 59858- 8 ####CORNELIUS LABORATORYCLIA [id number] [place] [address] [place] AMERICALymphocytes (Bld) [#/Vol]1.06 10*3/uLNormal1.00-4.00 [facility] HospitalComment on above:Order Comment: Specimen Type: BLOOD SPECIMENOrdering Facility: [facility] Address:[address] [place], [place] [address]Performed By: #### 08656-1 ####CORNELIUS LABORATORYCLIA [id number] [place] [id number] [place] Lymphocytes/100 WBC (Bld)11.4 %NormalGrandfalls HospitalComment on above:Order Comment: Specimen Type: BLOOD SPECIMENOrdering Facility: [facility] Address:[address] [place], [place] [address]Performed By: #### 50539- 8 ####CORNELIUS LABORATORYCLIA [id number] [address] (RBC) [Entitic mass]29.8 vgNfjkoo09.0-34.0Fabaystate noble hospital HospitalComment on above:Order Comment: Specimen Type: BLOOD SPECIMENOrdering Facility: [facility] Address:[address] [place], [place] [address]Performed By: #### 03139-6 ####CORNELIUS LABORATORYCLIA [id number] [address] (RBC) [Mass/Vol] 35.2 g/rONiwjbc26.5-36.0Fabaystate noble hospital HospitalComment on above:Order Comment: Specimen Type: BLOOD SPECIMENOrdering Facility: [facility] Address:[address] [place], [place] [address]Performed By: #### 39728-4 ####CORNELIUS LABORATORYCLIA [id number] [address] (RBC) [Entitic vol]84.5 cRFfsgjn21.0-100.0Fabaystate noble hospital HospitalComment on above:Order Comment: Specimen Type: BLOOD SPECIMENOrdering Facility: [facility] Address:[address] [place], [place] [address]Performed By: #### 80597-0 ####CORNELIUS LABORATORYCLIA [id number] [place] [address] [place] AMERICAMonocytes (Bld) [#/Vol] 0.67 10*3/uLNormal<0.87Fabaystate noble hospital HospitalComment on above:Order Comment: Specimen Type: BLOOD SPECIMENOrdering Facility: [facility] Address:[address] [place], [place] [address]Performed By: #### 34470-3 ####CORNELIUS LABORATORYCLIA [id number] [address] STATES OF AMERICAMonocytes/100 WBC (Bld)7.2 %NormalFabaystate noble hospital HospitalComment on above: Order Comment: Specimen Type: BLOOD SPECIMENOrdering Facility: [facility] Address:[address] [place], [place] [address]Performed By: #### 72805- 8 ####CORNELIUS LABORATORYCLIA [id number] [place] [id number] [place] AMERICANeutrophils (Bld) [#/Vol]7.36 10*3/uLNormal1.45-7.50 [facility] HospitalComment on above:Order Comment: Specimen Type: BLOOD SPECIMENOrdering Facility: [facility] Address:[address] [place], [place] [address]Performed By: #### 63213-2 ####CORNELIUS LABORATORYCLIA [id number] [place] [id number] [place] Neutrophils/100 WBC (Bld)79.3 %NormalGrandfalls HospitalComment on above:Order Comment: Specimen Type: BLOOD SPECIMENOrdering Facility: [facility] Address:[address] [place], [place] [address]Performed By: #### 71112- 8 ####CORNELIUS LABORATORYCLIA [id number] [place] [id number] [place] AMERICANucleated RBC (Bld) [#/Vol]10*3/uLNormal<0.01[facility] HospitalComment on above:Order Comment: Specimen Type: BLOOD SPECIMENOrdering Facility: [facility] Address:[address] [place], [place] [address]Performed By: #### 84021-1 ####CORNELIUS LABORATORYCLIA [id number] [place] [id number] [place] AMERICANucleated RBC/100 WBC (Bld) [Ratio]0.0 /100 WBCNormalGrandfalls HospitalComment on above:Order Comment: Specimen Type: BLOOD SPECIMENOrdering Facility: [facility] Address:[address] [place], [place] [address]Performed By: #### 98500-4 ####CORNELIUS LABORATORYCLIA [id number] [place] [id number] [place] AMERICAPlatelet mean volume (Bld) [Entitic vol]8.8 fLLow 9.0-12.7Fcentral hospital HospitalComment on above:Order Comment: Specimen Type: BLOOD SPECIMENOrdering Facility: [facility] Address:[address] [place], [place] [address]Performed By: #### 20895-3 ####CORNELIUS LABORATORYCLIA [id number] [place] [address] [facility] Platelets (Bld) [#/Vol]411 10*3/tZZsma706-137Rzatdkzb HospitalComment on above: Order Comment: Specimen Type: BLOOD SPECIMENOrdering Facility: [facility] Address:[address] [place], [place] [address]Performed By: #### 89174- 8 ####CORNELIUS LABORATORYCLIA [id number] [place] [id number] [place] [facility] HOSPITALRBC (Bld) [#/Vol]4.84 10*6/uLNormal3.90-5.20Fabaystate noble hospital HospitalComment on above:Order Comment: Specimen Type: BLOOD SPECIMENOrdering Facility: [facility] Address:[address] [place], [place] [address]Performed By: #### 22627-8 ####CORNELIUS LABORATORYCLIA [id number] [place] [id number] [place] [facility] HOSPITALWBC (Bld) [#/Vol]9.28 10*3/uLNormal3.70-11.00[facility] HospitalComment on above:Order Comment: Specimen Type: BLOOD SPECIMENOrdering Facility: [facility] Address:[address] [place], [place] [address]Performed By: #### 54597-7 ####CORNELIUS LABORATORYCLIA [id number] [place] [id number] [place] AMERICACONSULTon 51-62-7350XRMNPSOSncqhkBengvcuu HospitalCT ABD/PEL W IVCONon 41-98-3434EF ABD/PEL W IVCONNormalGrandfalls HospitalColor Auto (U)on 08-31-2023 Color (U)[facility] HospitalComprehensive metabolic 2000 panelon 88-67-3635Tvpoyxr [Mass/Vol]4.6 g/dLNormal3.9-4.9[facility] Comment on above:Order Comment: Specimen Type: BLOOD SPECIMENOrdering Facility: [facility] Address:[address] [place] [address] Performed By: #### 31121-5, 1, 52944-1 ####CORNELIUS LABORATORYCLIA [id number] [place] [address] [place] AMERICAALP [Catalytic activity/Vol]351 U/VRomn06-890Jsjisoqi HospitalComment on above:Order Comment: Specimen Type: BLOOD SPECIMENOrdering Facility: [facility] Address:[address] [place], [place] [address]Performed By: #### 79968- 9, 2776-07, 57563-8 ####CORNELIUS LABORATORYCLIA [id number] [place] [id number] [place] AMERICAALT [Catalytic activity/Vol]178 U/L [facility]7-38[facility] CenterComment on above:Order Comment: Specimen Type: BLOOD SPECIMENOrdering Facility: [facility] Address:[address] [place], [place] [address]Performed By: #### 22761-5, 2776-07, 45251-3 ####CORNELIUS LABORATORYCLIA [id number] [place] [id number] [place] AMERICAAnion gap [Moles/Vol]19 mmol/[facility]9-18Fcentral hospital HospitalComment on above: Order Comment: Specimen Type: BLOOD SPECIMENOrdering Facility: [facility] Address:[address] [place], [place] [address]Performed By: #### 59104- 9, 2776-07, 25811-8 ####CORNELIUS LABORATORYCLIA [id number] [place] [id number] [place] AMERICAAST [Catalytic activity/Vol]83 U/L Piyc03-20Pyrdhjsa HospitalComment on above:Order Comment: Specimen Type: BLOOD SPECIMENOrdering Facility: [facility] Address:[address] [place], [place] [address]Performed By: #### 37418-8, 2776-07, 16354-0 ####CORNELIUS LABORATORYCLIA [id number] [place] [address] [place] AMERICABilirubin [Mass/Vol]0.5 mg/dLNormal0.2-1.3Fcentral hospital HospitalComment on above:Order Comment: Specimen Type: BLOOD SPECIMENOrdering Facility: [facility] Address:[address] [place], [place] [address]Performed By: #### 79835-1, 2776-07, 05549-8 ####CORNELIUS LABORATORYCLIA [id number] [place] [id number] [place] AMERICACalcium [Mass/Vol]10.0 mg/dL Normal8.5-10.2Fcentral hospital HospitalComment on above:Order Comment: Specimen Type: BLOOD SPECIMENOrdering Facility: [facility] Address:[address] [place], [place] [address]Performed By: #### 32489-6, 2776-07, ####CORNELIUS LABORATORYCLIA [id number] [place] [id number] [place] AMERICAChloride [Moles/Vol]85 mmol/DMhr08-622Rextphwq Hospital Comment on above:Order Comment: Specimen Type: BLOOD SPECIMENOrdering Facility: [facility] Address:[address] [place] [address] Performed By: #### 51316-2, 2776-07, 31964-6 ####CORNELIUS LABORATORYCLIA [id number] [place] [id number] [place] AMERICACO2 [Moles/Vol]21 mmol/QXxl84-97Bsjlghzn HospitalComment on above:Order Comment: Specimen Type: BLOOD SPECIMENOrdering Facility: [facility] Address:[address] [place], [place] [address]Performed By: #### 13792-6, 27701-07, 13470-2 ####CORNELIUS LABORATORYCLIA [id number] [place] [id number] [place] AMERICACreatinine [Mass/Vol]1.34 mg/dLHigh0.58-0.96 [facility] on above:Order Comment: Specimen Type: BLOOD SPECIMENOrdering Facility: [facility] Address:[address] [id number] By: #### 87636-7, 277-1, 12796-3 ####[facility] LABORATORYCLIA [id number] [place] [id number] [place] AMERICACreatinine and Glomerular filtration rate.predicted panel (S/P/Bld)43 mL/min/1.73m???Low>=60[facility] on above:Order Comment: Specimen Type: BLOOD SPECIMENOrdering Facility: [facility] Address[address] [place] [id number] Comment: Estimated Glomerular Filtration Rate (eGFR) is calculated using the 2020 CKD-EPI creatinine equation. This equation utilizes serum creatinine, sex, and age as parameters. The creatinine assay has traceable calibration to isotope dilution-mass spectrometry. Refer to KDIGO guidelines for clinical interpretation. In patients with unstable renal function, e.g. those with acute kidney injury, the eGFR may not accurately reflect actual GFR.Performed By: #### 22255-5, 2776-, 34326-8 ####[facility] LABORATORYCLIA [id number] [place] [id number] [place] AMERICAGlucose [Mass/Vol]159 mg/gYBwwj68-71GsurhkmlUMass Memorial Medical Center on above: Order Comment: Specimen Type: BLOOD SPECIMENOrdering Facility: [facility] Address:[address] [place], [place] [address]Vepvtz Comment: The [place] Diabetes Association (ADA) provides guidance for cutoff values for fast ing glucose and random glucose. The ADA defines fasting as no caloric intake for at least 8 hours. Fasting plasma glucose results between 100 to 125 mg/dL indicate increased risk for diabetes (prediabetes).Fasting plasma glucose results greater than or equal to 126 mg/dL meet the criteria for diagnosis of diabetes. In the absence of unequivocal hyperglycemia, results should be confirmed by repeattesting. In a patient with classic symptoms of hyperglycemia or hyperglycemic crisis, random plasmaglucose results greater than or equal to 200 mg/dL meet the criteria for diagnosis of diabetes.Reference: Standards of Medical Care in Diabetes 2016, [place] Diabetes Association. Diabetes Care. 2016.39(Suppl 1).Performed By: #### 74236-6, 2776-, 06908-7 ####CORNELIUS LABORATORYCLIA [id number] [place] [address] [place] AMERICAPotassium [Moles/Vol]4.2 mmol/LNormal3.7-5.1Fcentral hospital HospitalComment on above:Order Comment: Specimen Type: BLOOD SPECIMENOrdering Facility: [facility] Address:[address] [place], [place] [address]Performed By: #### 99031-7, 2776-07, 50464-6 ####CORNELIUS LABORATORYCLIA [id number] [place] [address] [place] AMERICAProtein [Mass/Vol]7.4 g/dL Normal6.3-8.0FaSaints Medical CenterComment on above:Order Comment: Specimen Type: BLOOD SPECIMENOrdering Facility: [facility] Address:[address] [place], [place] [address]Performed By: #### 61664-5, 2776-07, 78919-1 ####CORNELIUS LABORATORYCLIA [id number] [place] [id number] [place] AMERICASodium [Moles/Vol]125 mmol/TTuk860-063Cdyverzd Hospital Comment on above:Order Comment: Specimen Type: BLOOD SPECIMENOrdering Facility: [facility] Address:[address] [place] [address] Performed By: #### 34802-7, 2776-07, 89377-7 ####CORNELIUS LABORATORYCLIA [id number] [place] [address] [place] AMERICAUrea nitrogen [Mass/Vol]35 mg/dLHigh7-21FaSaints Medical CenterComment on above:Order Comment: Specimen Type: BLOOD SPECIMENOrdering Facility: [facility] Address:[address] [place], [place] [address]Performed By: #### 29558- 9, 27701-07, 75815-5 ####CORNELIUS LABORATORYCLIA [id number] [place] [address] [place] AMERICAECG COMPLETEon 74-83-0903DYP COMPLETENormalFairview HospitalED NOTEon 63-98-3726CN NOTEHNO ID: [id number] Author: LYUBOV PEREA RN Service: ? Author Type: Registered Nurse Type: ED Notes Filed: 08/31/2023 12:07 Note Text: Report given to KAYA Monsalve.NormalFairview HospitalED NOTEHNO ID: [id number] Author: DANNIELLE MOLINA RN Service: ? Author Type: Registered Nurse Type: ED Notes Filed: 08/31/2023 09:15 Note Text: Bed: 25-ED Expected date: Expected time: Means of arrival: Comments: triageNormalFairview HospitalED PROV NOTEon 32-10-9888FR PROV NOTENormalGrandfalls HospitalEosinophils/100 WBC Auto (Bld)on 30-65-4896Sftfxwuicxd/100 WBC (Bld)1.0 %[facility]'S HospitalErythrocyte distribution width Auto (RBC) [Ratio]on 70-67-4198Bnzmdyoojuk distribution width (RBC) [Ratio]14.6 %11.5-15.0 [facility]'S HospitalHISTORY PHYSICALon 40-08-3647MUXDAJS PHYSICAL NormalGrandfalls HospitalHematocrit Auto (Bld) [Volume fraction]on 08-31-2023 Hematocrit (Bld) [Volume fraction]40.9 %36.0-46.0[facility]'S HospitalHemoglobin [Mass/volume] in Bloodon 44-49-4171Qyajxmpemx (Bld) [Mass/Vol] 14.4 g/dL11.5-15.5FSumma Health Wadsworth - Rittman Medical CenterKetones Auto test strip (U) [Mass/Vol]on 86-20-0755Xuetxza (U) [Mass/Vol]NegativeNegative, TraceDayton Children'S HospitalLaboratory - Chemistry and Chemistry - challengeon [id number] [Mass/Vol]4.6 g/dL3.9-4.9[facility] HospitalALP [Catalytic activity/Vol]351 U/Q62-546WbalvmpweDayton Children'S HospitalALT [Catalytic activity/Vol]178 U/L7-38[facility]S HospitalAST [Catalytic activity/Vol]83 U/E84-07YpcsookbhDayton Children'S HospitalBilirubin [Mass/Vol]0.5 mg/dL0.2-1.3FSumma Health Wadsworth - Rittman Medical CenterCalcium [Mass/Vol] 10.0 mg/dL8.5-10.2FSumma Health Wadsworth - Rittman Medical CenterChloride [Moles/Vol]85 mmol/L 97-105Day[facility]'S HospitalCO2 [Moles/Vol]21 mmol/J39-05SfoqmrgikDayton Children'S HospitalCreatinine [Mass/Vol]1.34 mg/dL0.58-0.96[facility] HospitalGlucose [Mass/Vol]159 mg/zE15-40QmpmpanaqDayton Children'S HospitalComment on above:The [place] Diabetes Association (ADA) provides guidance for cutoff values for fasting glucose andrandom glucose. The ADA defines fasting as no caloric intake for at least 8 hours. Fasting plasma gl ucose results between 100 to 125 mg/dL indicate increased risk for diabetes (prediabetes).Fasting plasma glucose results greater than or equal to 126 mg/dL meet the criteria for diagnosis of diabetes. In the absence of unequivocal hyperglycemia, results should be confirmed by repeat testing. In a patient with classic symptoms of hyperglycemia or hyperglycemic crisis, random plasma glucose resultsgreater than or equal to 200 mg/dL meet the criteria for diagnosis of diabetes.Reference: Standardsof Medical Care in Diabetes 2016, [place] Diabetes Association. Diabetes Care. 2016.39(Suppl 1).Magnesium [Mass/Vol]1.6 mg/dL 1.7-2.3FSumma Health Wadsworth - Rittman Medical CenterPotassium [Moles/Vol]4.2 mmol/L3.7-5.1 [facility] HospitalProtein [Mass/Vol]7.4 g/dL6.3-8.0[facility] Hospitalodium [Moles/Vol]125 mmol/Y685-425VtfespkonDayton Children'S HospitalUrea nitrogen [Mass/Vol]35 mg/dL7-21[facility]S HospitalLaboratory - Hematology and Cell countson 52-47-2085Byprjqgklcv (Bld) [#/Vol]0.09 10*3/uL<0.46Fire[facility] Medical CenterImmature granulocytes (Bld) [#/Vol]0.08 10*3/uL<0.10[facility]S HospitalImmature granulocytes/100 WBC (Bld)0.9 %[facility]'S HospitalLeukocytes [#/volume] corrected for nucleated erythrocytes in Blood by Automated counon 82-21-6385ZSF corrected for nucl RBC Auto (Bld) [#/Vol]9.28 k/uL3.70-11.00 [facility]S HospitalLymphocytes Auto (Bld) [#/Vol]on 08-31-2023 Lymphocytes (Bld) [#/Vol]1.06 10*3/uL1.00-4.00[facility] Lymphocytes/100 WBC Auto (Bld)on 97-19-7845Jshtdxayfsw/100 WBC (Bld)11.4 % [facility] HospitalH Auto (RBC) [Entitic mass]on 96-42-0008PJY (RBC) [Entitic mass]29.8 pg26.0-34.0[facility]'S HospitalMCHC Auto (RBC) [Mass/Vol]on 74-05-0409THDW (RBC) [Mass/Vol]35.2 g/dL30.5-36.0[facility]S HospitalMCV Auto (RBC) [Entitic vol]on 33-16-4726GQL (RBC) [Entitic vol]84.5 fL80.0-100.0[facility]S HospitalMagnesium SerPl-mCncon 25-94-2017Knvbxwdhh [Mass/Vol]1.6 mg/dLLow1.7-2.3FCharlton Memorial Hospital Comment on above:Order Comment: Specimen Type: BLOOD SPECIMENOrdering Facility: [facility] Address:[address] [place] [address] Performed By: #### 72809-0, 2777-1, 82914-4 ####CORNELIUS LABORATORYCLIA [id number] [place] [address] [place] Monocytes Auto (Bld) [#/Vol]on 48-97-8764Xylfymmgw (Bld) [#/Vol]0.67 10*3/uL <0.87[facility]'S HospitalMonocytes/100 WBC Auto (Bld)on 08-31-2023 Monocytes/100 WBC (Bld)7.2 %[facility]S HospitalNURSING PROGon 97-41-0838SEOINEA PROGNormalGrandfalls HospitalNURSING PROGNormalHolyoke Medical Center Neutrophils Auto (Bld) [#/Vol]on 18-55-3202Bgejcaqiror (Bld) [#/Vol]7.36 10*3/uL 1.45-7.50[facility]S HospitalNeutrophils/100 WBC Auto (Bld)on 90-48-3632Qovsxsuubip/100 WBC (Bld)79.3 %[facility]S HospitalNo Panel Informationon 57-49-6372Fnkvpswqa GFR (CKD-EPI)43 mL/min/1.73m???>=60 [facility] HospitalComment on above:Estimated Glomerular Filtration Rate (eGFR) is calculated using the 2020 CKD-EPI creatinine equation. This equation utilizes serum creatinine, sex, and age as parameters. The creatinine assay has traceable calibration to isotope dilution-mass spectrometry. Refer to KDIGO guidelines for clinical interpretation. In patients with unstable renal function, e.g. those with acute kidney injury, the eGFRmay not accurately reflect actual GFR.Phosphorus Level4.3 mg/dL2.7-4.8[facility]S HospitalNucleated RBC Auto (Bld) [#/Vol]on 99-87-5122Wtofcfvgv RBC (Bld) [#/Vol]10*3/uL<0.01[facility]S HospitalNucleated erythrocytes [Presence] in Blood by Automated counton 51-97-3957Ssstbpuqm RBC Auto Ql (Bld)0.0 /100{WBC}[facility]'S HospitalPhosphate SerPl-mCnc on 39-83-8128Gprwymivf [Mass/Vol]4.3 mg/dLNormal2.7-4.8[facility] Medical CenterComment on above:Order Comment: Specimen Type: BLOOD SPECIMENOrdering Facility: [facility] Address:[address] [place] [address] Performed By: #### 57380-5, 2777-1, 18085-2 ####CORNELIUS LABORATORYCLIA [id number] [place] [address] [place] Platelet mean volume Auto (Bld) [Entitic vol]on 93-05-7537Pcskwhmj mean volume (Bld) [Entitic vol]8.8 fL9.0-12.7FSumma Health Wadsworth - Rittman Medical CenterPlatelets Auto (Bld) [#/Vol]on 19-38-4722Edptknopf (Bld) [#/Vol]411 10*3/mC993-595OiphppqogDayton Children'S HospitalProtein Auto test strip (U) [Mass/Vol]on 08-31-2023 Protein (U) [Mass/Vol]TraceTrace, NegativeDayton Children'S HospitalRBC Auto (Bld) [#/Vol]on 11-76-2168UEM (Bld) [#/Vol]4.84 10*6/uL3.90-5.20Gu[facility] Hospitalerum or plasma anion gap determinationon 98-10-8169Hqcai gap [Moles/Vol]19 mmol/L9-18FSelect Medical Specialty Hospital - Cantonpecific gravity Auto test strip (U) [Rel density]on 73-24-5596Dkvbpacq gravity (U) [Rel density] ClearClearFSumma Health Wadsworth - Rittman Medical CenterURINALYSIS, REFLEX MICROSCOPICon 82-05-9500Lhdioduz LM.HPF (Urine sed) [#/Area]RareAbnormalNone SeenHolyoke Medical CenterComment on above:Order Comment: Specimen Type: URINE SPECIMENOrdering Facility: [facility] Address:[address] [place], [place] [address]Performed By: #### [id number] ####CORNELIUS LABORATORYCLIA [id number] [place] [address] [place] AMERICABilirubin Ql (U) NegativeNormalNegativeGrandfalls HospitalComment on above:Order Comment: Specimen Type: URINE SPECIMENOrdering Facility: [facility] Address:[address] [place], [place] [address]Performed By: #### [id number] ####CORNELIUS LABORATORYCLIA [id number] [place] [id number] [place] AMERICAClarity (Unsp spec)ClearNormalClearFairview HospitalComment on above: Order Comment: Specimen Type: URINE SPECIMENOrdering Facility: [facility] Address:[address] [place], [place] [address]Performed By: #### [id number] ####CORNELIUS LABORATORYCLIA [id number] [place] [address] [place] AMERICAColor (U)YellowNormalYellowGrandfalls Hospital Comment on above:Order Comment: Specimen Type: URINE SPECIMENOrdering Facility: [facility] Address:[address] [place] [address] Performed By: #### [id number] ####CORNELIUS LABORATORYCLIA [id number] [place] [address] [place] AMERICAEpithelial cells LM.HPF (Urine sed) [#/Area]FewNormalGrandfalls HospitalComment on above:Order Comment: Specimen Type: URINE SPECIMENOrdering Facility: [facility] Address:[address] [place], [place] [address]Performed By: #### [id number] ####CORNELIUS LABORATORYCLIA [id number] [place] [address] [place] AMERICAGlucose Test strip (U) [Mass/Vol]NegativeNormalTrace, NegativeFairselect medical specialty hospital - boardman, inc HospitalComment on above:Order Comment: Specimen Type: URINE SPECIMENOrdering Facility: [facility] Address:[address] [place], [place] [address]Performed By: #### [id number] ####CORNELIUS LABORATORYCLIA [id number] [place] [address] [place] AMERICAHemoglobin Ql (U)Trace NormalNegative, TraceFairselect medical specialty hospital - boardman, inc HospitalComment on above:Order Comment: Specimen Type: URINE SPECIMENOrdering Facility: [facility] Address:[address] [place], [place] [address]Performed By: #### [id number] ####CORNELIUS LABORATORYCLIA [id number] [place] [address] [place] AMERICAHyaline casts (Urine sed) [#/Area]4-10 /LPFAbnormal0 /LPFFairselect medical specialty hospital - boardman, inc HospitalComment on above:Order Comment: Specimen Type: URINE SPECIMENOrdering Facility: [facility] Address:[address] [place], [place] [address]Performed By: #### [id number] ####CORNELIUS LABORATORYCLIA [id number] [place] [id number] [place] AMERICAKetones Ql (U)Negative NormalNegative, TraceFabaystate noble hospital HospitalComment on above:Order Comment: Specimen Type: URINE SPECIMENOrdering Facility: [facility] Address:[address] [place], [place] [address]Performed By: #### [id number] ####CORNELIUS LABORATORYCLIA [id number] [place] [address] [place] AMERICALeukocyte esterase Test strip Ql (U)NegativeNormalNegative, 25 Melody/uL [facility] CenterComment on above:Order Comment: Specimen Type: URINE SPECIMENOrdering Facility: [facility] Address:[address] [place], [place] [address]Performed By: #### [id number] ####CORNELIUS LABORATORYCLIA [id number] [place] [address] [place] AMERICANitrite Ql (U)NegativeNormalNegativeGrandfalls HospitalComment on above:Order Comment: Specimen Type: URINE SPECIMENOrdering Facility: [facility] Address:[address] [place], [place] [address]Performed By: #### [id number] ####CORNELIUS LABORATORYCLIA [id number] [place] [id number] [place] AMERICApH (U)6.0 [pH]Normal5.0-8.0Grandfalls HospitalComment on above:Order Comment: Specimen Type: URINE SPECIMENOrdering Facility: [facility] Address:[address] [place], [place] [address]Performed By: #### [id number] ####CORNELIUS LABORATORYCLIA [id number] [place] [address] [place] AMERICAProtein (U) [Mass/Vol]TraceNormalTrace, Negative [facility] HospitalComment on above:Order Comment: Specimen Type: URINE SPECIMENOrdering Facility: [facility] Address:[address] [place], [place] [address]Performed By: #### [id number] ####VIPINLISSETH LABORATORYCLIA [id number] [place] [address] [place] [facility] HOSPITALRB LM.HPF (Urine sed) [#/Area]3-5 /HPFAbnormal0-3 /HPFFabaystate noble hospital HospitalComment on above:Order Comment: Specimen Type: URINE SPECIMENOrdering Facility: [facility] Address:[address] [place], [place] [address]Performed By: #### [id number] ####CORNELIUS LABORATORYCLIA [id number] [place] [address] [place] IRA [facility] HOSPITALSpecific gravity (U) [Rel density]>1.050High 1.005-1.030Grandfalls HospitalComment on above:Order Comment: Specimen Type: URINE SPECIMENOrdering Facility: [facility] Address:[address] [place], [place] [address]Performed By: #### [id number] ####CORNELIUS LABORATORYCLIA [id number] [place] [address] [place] Urobilinogen Ql (U)NormalNormalNormalGrandfalls HospitalComment on above:Order Comment: Specimen Type: URINE SPECIMENOrdering Facility: [facility] Address:[address] [place], [place] [address]Performed By: #### [id number] ####CORNELIUS LABORATORYCLIA [id number] [place] [address] [place] [facility] CENTERW LM.HPF (Urine sed) [#/Area]0-5 /HPFNormal0-5 /HPFFabaystate noble hospital HospitalComment on above:Order Comment: Specimen Type: URINE SPECIMENOrdering Facility: [facility] Address:[address] [place], [place] [address]Performed By: #### [id number] ####CORNELIUS LABORATORYCLIA [id number] [place] [address] [place] AMERICAUrine bacteria detection by automated methodon 40-03-9772Pzghueqi Auto Ql (U)Rare [HPF]None SeenDayton Children'S HospitalUrine glucose measurement by test strip (mass/volume)on 71-42-2366Sdyfmwf Test strip (U) [Mass/Vol]NegativeTrace, NegativeDayton Children'S HospitalUrine hemoglobin detection by automated test stripon 01-99-3260Uakazzkioc Auto test strip Ql (U)TraceNegative, TraceDayton Children'S HospitalUrine nitrite detection by automated test stripon 19-06-8723Tgnyssn Auto test strip Ql (U)NegativeNegativeDayton Children'S HospitalUrine sediment leukocyte count by microscopy (number/high power field)on 60-66-4733EAX LM.HPF (Urine sed) [#/Area]0-5 /HPF0-5 /HPF [facility]S HospitalUrobilinogen Auto test strip (U) [Mass/Vol]on 30-82-8375Hadexuadroin (U) [Mass/Vol]NormalNormalDayton Children'S HospitalXR ABDOMEN 1V SUPINEon 30-75-7570HH ABDOMEN 1V SUPINENormalFairselect medical specialty hospital - board[facility], inc HospitalpH Auto test strip (U)on 90-52-3571tQ (U)6.0 [pH]5.0-8.0[facility] HospitalBasic metabolic 2000 panelon 29-54-8798Mnjhr gap [Moles/Vol]10 mmol/LNormal9-18Fcentral hospital HospitalComment on above:Order Comment: Specimen Type: BLOOD SPECIMENOrdering Facility: [facility] Address:[address] [place], [place] [address]Performed By: #### 07432-9 ####CORNELIUS LABORATORYCLIA [id number] [place] [id number] [place] AMERICACalcium [Mass/Vol]9.5 mg/dLNormal8.5-10.2Fcentral hospital HospitalComment on above:Order Comment: Specimen Type: BLOOD SPECIMENOrdering Facility: [facility] Address:[address] [place], [place] [address]Performed By: #### 15112-6 ####CORNELIUS LABORATORYCLIA [id number] [place] [id number] [place] AMERICAChloride [Moles/Vol]100 mmol/STlgkks97-720Rhuuyize HospitalComment on above:Order Comment: Specimen Type: BLOOD SPECIMENOrdering Facility: [facility] Address:[address] [place], [place] [address]Performed By: #### 68552-4 ####CORNELIUS LABORATORYCLIA [id number] [place] [id number] [place] AMERICACO2 [Moles/Vol]24 mmol/VTevdra18-08Elddqdeo HospitalComsinai-grace hospital on above: Order Comment: Specimen Type: BLOOD SPECIMENOrdering Facility: [facility] Address:[address] [place], [place] [address]Performed By: #### 69063- 2 ####CORNELIUS LABORATORYCLIA [id number] [place] [id number] [place] AMERICACreatinine [Mass/Vol]0.63 mg/dLNormal0.58-0.96[facility] on above:Order Comment: Specimen Type: BLOOD SPECIMENOrdering Facility: [facility] Address:[address] [place], [place] [address]Performed By: #### 33305-7 ####CORNELIUS LABORATORYCLIA [id number] [place] [address] [place] AMERICACreatinine and Glomerular filtration rate.predicted panel (S/P/Bld)96 mL/min/1.73m???Normal>=60 [facility] on above:Order Comment: Specimen Type: BLOOD SPECIMENOrdering Facility: [facility] Address:[address] [place], [place] [address]Result Comment: Estimated Glomerular Filtration Rate (eGFR) is calculated using the 2020 CKD-EPI creatinine equation. This equation utilizes serum creatinine, sex, and age as parameters. The creatinine assay has traceable calibration to isotope dilution-mass spectrometry. Refer to KDIGO guidelines for clinical interpretation. In patients with unstable renal function, e.g. those with acute kidney injury, the eGFR may not accurately reflect actual GFR.Performed By: #### 17470-7 ####CORNELIUS LABORATORYCLIA [id number] [place] [id number] [place] AMERICAGlucose [Mass/Vol]119 mg/eNNcjx51-56Ajbetfnh HospitalComment on above:Order Comment: Specimen Type: BLOOD SPECIMENOrdering Facility: [facility] Address:[address] [place], [place] [address]Result Comment: The [place] Diabetes Association (ADA) provides guidance for cutoff [...] symptoms of hyperglycemia or hyperglycemic crisis, random plasmaglucose results greater than or equal to 200 mg/dL meet the criteria for diagnosis of diabetes.Reference: Standards of Medical Care in Diabetes 2016, [place] Diabetes Association. Diabetes Care. 2016.39(Suppl 1). Performed By: #### 63004-8 ####CORNELIUS LABORATORYCLIA [id number] [place] [address] [place] AMERICAPotassium [Moles/Vol]4.2 mmol/LNormal3.7-5.1Fcentral hospital HospitalComment on above:Order Comment: Specimen Type: BLOOD SPECIMENOrdering Facility: [facility] Address:[address] [place], [place] [address]Performed By: #### 33639-4 ####CORNELIUS LABORATORYCLIA [id number] [place] [id number] [place] AMERICASodium [Moles/Vol]134 mmol/FEim264-391Rqjmgmou HospitalComment on above: Order Comment: Specimen Type: BLOOD SPECIMENOrdering Facility: [facility] Address:[address] [place], [place] [address]Performed By: #### 29890- 2 ####CORNELIUS LABORATORYCLIA [id number] [place] [address] [place] AMERICAUrea nitrogen [Mass/Vol]21 mg/dLNormal7-21Fabaystate noble hospital HospitalComment on above:Order Comment: Specimen Type: BLOOD SPECIMENOrdering Facility: [facility] Address:[address] [place], [place] [address]Performed By: #### 63719-8 ####CORNELIUS LABORATORYCLIA [id number] [place] [id number] [place] AMERICABasophils Auto (Bld) [#/Vol]on 53-89-8443Amvrpwmyq (Bld) [#/Vol]0.03 10*3/uL<0.11[facility]S HospitalBasophils/100 WBC Auto (Bld)on 47-67-7061Avmabbtgu/100 WBC (Bld) 0.4 %[facility]S HospitalBlood manual differential comment interpretation narrativeon 29-61-0495Sqkmpn differential comment Ankush (Bld) [Interp]AutoDayton Children'S HospitalCASE MANAGEMon 03-00-2402GZMS MANAGEMNormalHolyoke Medical CenterCB W Auto Differential panel (Bld)on 08-30-2023 Basophils (Bld) [#/Vol]0.03 10*3/uLNormal<0.11[facility] HospitalComment on above: Order Comment: Specimen Type: BLOOD SPECIMENOrdering Facility: [facility] Address:[address] [place], [place] [address]Performed By: #### 16296- 8 ####CORNELIUS LABORATORYCLIA [id number] [place] [id number] [place] AMERICABasophils/100 WBC (Bld)0.4 %NormalHolyoke Medical Center Comment on above:Order Comment: Specimen Type: BLOOD SPECIMENOrdering Facility: [facility] Address:[address] [place] [address] Performed By: #### 30607-9 ####CORNELIUS LABORATORYCLIA [id number] [place] [id number] [place] AMERICADifferential cell count method Nom (Bld)AutoNormalHolyoke Medical CenterComment on above:Order Comment: Specimen Type: BLOOD SPECIMENOrdering Facility: [facility] Address:[address] [place], [place] [address]Performed By: #### 33144-8 ####CORNELIUS LABORATORYCLIA [id number] [place] [address] [place] AMERICAEosinophils (Bld) [#/Vol]0.46 10*3/uLHigh<0.46Fabaystate noble hospital HospitalComment on above:Order Comment: Specimen Type: BLOOD SPECIMENOrdering Facility: [facility] Address:[address] [place] [address] Performed By: #### 14156-6 ####CORNELIUS LABORATORYCLIA [id number] [place] [id number] [place] AMERICAEosinophils/100 WBC (Bld)6.5 % NormalGrandfalls HospitalComment on above:Order Comment: Specimen Type: BLOOD SPECIMENOrdering Facility: [facility] Address:[address] [place], [place] [address]Performed By: #### 76821-1 ####CORNELIUS LABORATORYCLIA [id number] [place] [address] [place] Erythrocyte distribution width (RBC) [Ratio]15.1 %High11.5-15.0[facility] Comment on above:Order Comment: Specimen Type: BLOOD SPECIMENOrdering Facility: [facility] Address:[address] [place] [address] Performed By: #### 76469-6 ####CORNELIUS LABORATORYCLIA [id number] [place] [id number] [place] AMERICAHematocrit (Bld) [Volume fraction]37.5 %Gcogxu11.0-46.0Fabaystate noble hospital HospitalComment on above:Order Comment: Specimen Type: BLOOD SPECIMENOrdering Facility: [facility] Address:[address] [place], [place] [address]Performed By: #### 42451-0 ####CORNELIUS LABORATORYCLIA [id number] [place] [id number] [place] AMERICAHemoglobin (Bld) [Mass/Vol]12.6 g/xJYywizi09.5-15.5 [facility] HospitalComment on above:Order Comment: Specimen Type: BLOOD SPECIMENOrdering Facility: [facility] Address:[address] [place], [place] [address]Performed By: #### 81564-6 ####CORNELIUS LABORATORYCLIA [id number] [place] [id number] [place] Immature granulocytes (Bld) [#/Vol]0.03 10*3/uLNormal<0.10[facility] Comment on above:Order Comment: Specimen Type: BLOOD SPECIMENOrdering Facility: [facility] Address:[address] [place] [address] Performed By: #### 37424-7 ####CORNELIUS LABORATORYCLIA [id number] [place] [id number] [place] AMERICAImmature granulocytes/100 WBC (Bld)0.4 %NormalGrandfalls HospitalComment on above:Order Comment: Specimen Type: BLOOD SPECIMENOrdering Facility: [facility] Address:[address] [place], [place] [address]Performed By: #### 85076-8 ####CORNELIUS LABORATORYCLIA [id number] [place] [id number] [place] Lymphocytes (Bld) [#/Vol]1.01 10*3/uLNormal1.00-4.00[facility] HospitalComment on above:Order Comment: Specimen Type: BLOOD SPECIMENOrdering Facility: [facility] Address:[address] [place], [place] [address]Performed By: #### 53065-4 ####CORNELIUS LABORATORYCLIA [id number] [place] [id number] [place] [facility] MEDICAL CENTERLymphocytes/100 WBC (Bld)14.2 %NormalGrandfalls HospitalComment on above:Order Comment: Specimen Type: BLOOD SPECIMENOrdering Facility: [facility] Address:[address] [place], [place] [address]Performed By: #### 32661-7 ####CORNELIUS LABORATORYCLIA [id number] [place] [id number] [place] AMERICAMCH (RBC) [Entitic mass]29.6 veUxrsnb87.0-34.0Fabaystate noble hospital HospitalComment on above:Order Comment: Specimen Type: BLOOD SPECIMENOrdering Facility: [facility] Address:[address] [place], [place] [address]Performed By: #### 27811-4 ####CORNELIUS LABORATORYCLIA [id number] [place] [id number] [place] [facility]TR[facility] MEDICAL CENTERMCHC (RBC) [Mass/Vol]33.6 g/iFIjibae62.5-36.0[facility] HospitalComment on above:Order Comment: Specimen Type: BLOOD SPECIMENOrdering Facility: [facility] Address:[address] [place], [place] [address]Performed By: #### 98587-1 ####CORNELIUS LABORATORYCLIA [id number] [place] [id number] [facility] HOSPITALV (RBC) [Entitic vol] 88.0 pDNyxupc15.0-100.0Fabaystate noble hospital HospitalComment on above:Order Comment: Specimen Type: BLOOD SPECIMENOrdering Facility: [facility] Address:[address] [place], [place] [address]Performed By: #### 08141-5 ####CORNELIUS LABORATORYCLIA [id number] [place] [address] [place] AMERICAMonocytes (Bld) [#/Vol]0.70 10*3/uLNormal<0.87Fabaystate noble hospital HospitalComment on above:Order Comment: Specimen Type: BLOOD SPECIMENOrdering Facility: [facility] Address:[address] [place], [place] [address]Performed By: #### 50503-4 ####CORNELIUS LABORATORYCLIA [id number] [place] [id number] [place] AMERICAMonocytes/100 WBC (Bld)9.8 %NormalFabaystate noble hospital HospitalComment on above:Order Comment: Specimen Type: BLOOD SPECIMENOrdering Facility: [facility] Address:[address] [place], [place] [address]Performed By: #### 20408-7 ####CORNELIUS LABORATORYCLIA [id number] [place] [id number] [place] AMERICANeutrophils (Bld) [#/Vol]4.89 10*3/uLNormal1.45-7.50[facility] Medical CenterComment on above:Order Comment: Specimen Type: BLOOD SPECIMENOrdering Facility: [facility] Address:[address] [place], [place] [address]Performed By: #### 81537- 8 ####CORNELIUS LABORATORYCLIA [id number] [place] [id number] [place] AMERICANeutrophils/100 WBC (Bld)68.7 %NormalHolyoke Medical Center Comment on above:Order Comment: Specimen Type: BLOOD SPECIMENOrdering Facility: [facility] Address:[address] [place] [address] Performed By: #### 70261-0 ####CORNELIUS LABORATORYCLIA [id number] [place] [address] [place] AMERICANucleated RBC (Bld) [#/Vol] 10*3/uLNormal<0.01Holyoke Medical CenterComment on above:Order Comment: Specimen Type: BLOOD SPECIMENOrdering Facility: [facility] Address:[address] [place], [place] [address]Performed By: #### 60490-0 ####[facility] LABORATORYCLIA [id number] [place] [id number] [place] OF AMERICANucleated RBC/100 WBC (Bld) [Ratio]0.0 /100 WBCNoalHolyoke Medical Center Comment on above:Order Comment: Specimen Type: BLOOD SPECIMENOrdering Facility: [facility] Address:[address] [place] [address] Performed By: #### 06619-2 ####[facility] LABORATORYCLIA [id number] [place] [id number] [place] OF AMERICAPlatelet mean volume (Bld) [Entitic vol]8.9 fLLow9.0-12.7Fcentral hospital HospitalComment on above:Order Comment: Specimen Type: BLOOD SPECIMENOrdering Facility: [facility] Address:[address] [place], [place] [address]Performed By: #### 87255-1 ####[facility] LABORATORYCLIA [id number] [place] [id number] [place] AMERICAPlatelets (Bld) [#/Vol]313 10*3/jTPlnrnj384-622Btvufmot HospitalComment on above:Order Comment: Specimen Type: BLOOD SPECIMENOrdering Facility: [facility] Address:[address] [place], [place] [address]Performed By: #### 89735-4 ####C[facility] LABORATORYCLIA [id number] [place] [id number] [place] AMERICARBC (Bld) [#/Vol]4.26 10*6/uLNormal3.90-5.20Fabaystate noble hospital HospitalComment on above:Order Comment: Specimen Type: BLOOD SPECIMENOrdering Facility: [facility] Address:[address] [place], [place] [address]Performed By: #### 49952-2 ####C[facility] LABORATORYCLIA [id number] [address]ETWBC (Bld) [#/Vol]7.12 10*3/uLNormal3.70-11.00Grandfalls HospitalComment on above:Order Comment: Specimen Type: BLOOD SPECIMENOrdering Facility: [facility] Address:[address] [place], [place] [address]Performed By: #### 33383-8 ####C[facility] LABORATORYCLIA [id number] [address]ETCNDSon 01-77-0504EFVKAdwpqrCdgfistw Hospital Eosinophils/100 WBC Auto (Bld)on 33-14-0206Yknftyvuanu/100 WBC (Bld)6.5 % [facility] HospitalErythrocyte distribution width Auto (RBC) [Ratio]on 59-08-3399Mxvcrfbujpe distribution width (RBC) [Ratio]15.1 %11.5-15.0 [facility] HospitalHematocrit Auto (Bld) [Volume fraction]on 88-02-9075Xuamltgysm (Bld) [Volume fraction]37.5 %36.0-46.0[facility] HospitalHemoglobin [Mass/volume] in Bloodon 78-35-3785Nyzgiaeeel (Bld) [Mass/Vol]12.6 g/dL11.5-15.5FSumma Health Wadsworth - Rittman Medical CenterLaboratory - Chemistry and Chemistry - challengeon 55-98-1797Nvdbyon [Mass/Vol]9.5 mg/dL 8.5-10.2FSumma Health Wadsworth - Rittman Medical CenterChloride [Moles/Vol]100 mmol/L97-105 [facility] HospitalCO2 [Moles/Vol]24 mmol/W77-97CksyeslvkDayton Children'S HospitalCreatinine [Mass/Vol]0.63 mg/dL0.58-0.96[facility] HospitalGlucose [Mass/Vol]119 mg/hH15-18GgjjbjiauDayton Children'S Hospital Comment on above:The [place] Diabetes Association (ADA) provides guidance for cutoff values for fasting glucose andrandom glucose. The ADA defines fasting as no caloric intake for at least 8 hours. Fasting plasma glucose results between 100 to 125 mg/dL indicate increased risk for diabetes (prediabetes).Fasting pl asma glucose results greater than or equal to 126 mg/dL meet the criteria for diagnosis of diabetes. In the absence of unequivocal hyperglycemia, results should be confirmed by repeat testing. In a patient with classic symptoms of hyperglycemia or hyperglycemic crisis, random plasma glucose resultsgreater than or equal to 200 mg/dL meet the criteria for diagnosis of diabetes.Reference: Standardsof Medical Care in Diabetes 2016, [place] Diabetes Association. Diabetes Care. 2016.39(Suppl 1).Potassium [Moles/Vol]4.2 mmol/L3.7-5.1FSelect Medical Specialty Hospital - Cantonodium [Moles/Vol]134 mmol/H987-938KvcuddbpoDayton Children'S HospitalUrea nitrogen [Mass/Vol]21 mg/dL7-[facility] HospitalLaboratory - Hematology and Cell countson 38-91-5983Qhmpnipdsnv (Bld) [#/Vol]0.46 10*3/uL<0.46[facility] HospitalImmature granulocytes (Bld) [#/Vol]0.03 10*3/uL<0.10[facility] HospitalImmature granulocytes/100 WBC (Bld)0.4 %[facility] HospitalLeukocytes [#/volume] corrected for nucleated erythrocytes in Blood by Automated counon 33-83-1660GOA corrected for nucl RBC Auto (Bld) [#/Vol]7.12 k/uL3.70-11.00 [facility] HospitalLymphocytes Auto (Bld) [#/Vol]on 08-30-2023 Lymphocytes (Bld) [#/Vol]1.01 10*3/uL1.00-4.00[facility] Lymphocytes/100 WBC Auto (Bld)on 58-73-5625Oxdwneccdxa/100 WBC (Bld)14.2 % [facility] HospitalH Auto (RBC) [Entitic mass]on 64-28-1776JWV (RBC) [Entitic mass]29.6 pg26.0-34.0[facility]'S HospitalMCHC Auto (RBC) [Mass/Vol]on 90-07-2186AOCR (RBC) [Mass/Vol]33.6 g/dL30.5-36.0[facility] HospitalMCV Auto (RBC) [Entitic vol]on 28-59-6664TEU (RBC) [Entitic vol]88.0 fL80.0-100.0[facility] HospitalMonocytes Auto (Bld) [#/Vol]on 69-76-4506Vgmgllegc (Bld) [#/Vol]0.70 10*3/uL<0.87[facility] HospitalMonocytes/100 WBC Auto (Bld)on 74-64-5139Dksryvgot/100 WBC (Bld)9.8 %[facility] HospitalNURSING PROGon 20-57-5973JDCSZUD PROGNormalHolyoke Medical CenterNeutrophils Auto (Bld) [#/Vol]on 08-30-2023 Neutrophils (Bld) [#/Vol]4.89 10*3/uL1.45-7.50[facility] Neutrophils/100 WBC Auto (Bld)on 20-86-4124Nolsbxeelze/100 WBC (Bld)68.7 % [facility] HospitalNo Panel Informationon 70-42-6675Kqbupzdjg GFR (CKD-EPI)96 mL/min/1.73m???>=60[facility]S HospitalComment on above:Estimated Glomerular Filtration Rate (eGFR) is calculated using the 2020 CKD-EPI creatinine equation. This equation utilizes serum creatinine, sex, and age as parameters. The creatinine assay has traceable calibration to isotope dilution-mass spectrometry. Refer to KDIGO guidelines for clinical inte rpretation. In patients with unstable renal function, e.g. those with acute kidney injury, the eGFRmay not accurately reflect actual GFR.Nucleated RBC Auto (Bld) [#/Vol]on 78-29-9519Okedmzdcq RBC (Bld) [#/Vol]10*3/uL<0.01[facility] HospitalNucleated erythrocytes [Presence] in Blood by Automated counton 35-01-3233Ichjswmdw RBC Auto Ql (Bld)0.0 /100{WBC}[facility] HospitalPlatelet mean volume Auto (Bld) [Entitic vol]on 57-42-5562Cgrvajci mean volume (Bld) [Entitic vol]8.9 fL9.0-12.7FSumma Health Wadsworth - Rittman [facility] Center Platelets Auto (Bld) [#/Vol]on 07-97-2073Qpykdzssv (Bld) [#/Vol]313 10*3/uL 150-400Day[facility]S HospitalRBC Auto (Bld) [#/Vol]on 67-31-0353EIU (Bld) [#/Vol]4.26 10*6/uL3.90-5.20[facility] Hospitalerum or plasma anion gap determinationon 08-53-3160Utfuj gap [Moles/Vol]10 mmol/L9-18 [facility] HospitalBasic metabolic 2000 panelon 76-18-0556Kkgtn gap [Moles/Vol]12 mmol/LNormal9-18Fcentral hospital HospitalComment on above:Order Comment: Specimen Type: BLOOD SPECIMENOrdering Facility: [facility] Address:[address] [place], [place] [address]Performed By: #### 93526- 2 ####[facility] LABORATORYCLIA [id number] [place] [address] [place] AMERICACalcium [Mass/Vol]9.1 mg/dLNormal8.5-10.2Fcentral hospital HospitalComment on above:Order Comment: Specimen Type: BLOOD SPECIMENOrdering Facility: [facility] Address:[address] [place], [place] [address]Performed By: #### 27507-5 ####C[facility] LABORATORYCLIA [id number] [place] [id number] [place] OF AMERICAChloride [Moles/Vol]106 mmol/UIhbr36-629Tlwmkpwn HospitalComment on above:Order Comment: Specimen Type: BLOOD SPECIMENOrdering Facility: [facility] Address:[address] [place], [place] [address]Performed By: #### 13278-7 ####[facility] LABORATORYCLIA [id number] [place] [id number] [place] AMERICACO2 [Moles/Vol]22 mmol/FSehkph11-11Lrmiordu HospitalComment on above: Order Comment: Specimen Type: BLOOD SPECIMENOrdering Facility: [facility] Address:[address] [place], [place] [address]Performed By: #### 59421- 2 ####[facility] LABORATORYCLIA [id number] [place] [id number] [place] AMERICACreatinine [Mass/Vol]0.87 mg/dLNormal0.58-0.96[facility]falls HospitalComment on above:Order Comment: Specimen Type: BLOOD SPECIMENOrdering Facility: [facility] Address:[address] [place], [place] [address]Performed By: #### 75602-5 ####[facility] LABORATORYCLIA [id number] [place] [id number] [place] AMERICACreatinine and Glomerular filtration rate.predicted panel (S/P/Bld)72 mL/min/1.73m???Normal>=60 [facility] on above:Order Comment: Specimen Type: BLOOD SPECIMENOrdering Facility: [facility] Address:[address] [place], [place] [address]Result Comment: Estimated Glomerular Filtration Rate (eGFR) is calculated using the 2020 CKD-EPI creatinine equation. This equation utilizes serum creatinine, sex, and age as parameters. The creatinine assay has traceable calibration to isotope dilution-mass spectrometry. Refer to KDIGO guidelines for clinical interpretation. In patients with unstable renal function, e.g. those with acute kidney injury, the eGFR may not accurately reflect actual GFR.Performed By: #### 18866-4 ####C[facility] LABORATORYCLIA [id number] [place] [id number] [place] AMERICAGlucose [Mass/Vol]109 mg/jWZxav96-99Zcwfgwqk HospitalComment on above:Order Comment: Specimen Type: BLOOD SPECIMENOrdering Facility: [facility] Address:[address] [place], [place] [address]Result Comment: The [place] Diabetes Association (ADA) provides guidance for cutoff [...] symptoms of hyperglycemia or hyperglycemic crisis, random plasmaglucose results greater than or equal to 200 mg/dL meet the criteria for diagnosis of diabetes.Reference: Standards of Medical Care in Diabetes 2016, [place] Diabetes Association. Diabetes Care. 2016.39(Suppl 1). Performed By: #### 13976-5 ####C[facility] LABORATORYCLIA [id number] [place] [id number] [place] AMERICAPotassium [Moles/Vol]4.3 mmol/LNormal3.7-5.1Fcentral hospital HospitalComment on above:Order Comment: Specimen Type: BLOOD SPECIMENOrdering Facility: [facility] Address:[address] [place], [place] [address]Performed By: #### 69657-0 ####C[facility] LABORATORYCLIA [id number] [place] [id number] [place] AMERICASodium [Moles/Vol]140 mmol/KAemmxk581-519Zysacpgg HospitalComment on above:Order Comment: Specimen Type: BLOOD SPECIMENOrdering Facility: [facility] Address:[address] [place], [place] [address]Performed By: #### 56267-7 ####C[facility] LABORATORYCLIA [id number] [place] [id number] [place] AMERICAUrea nitrogen [Mass/Vol]19 mg/dLNormal7-Grandfalls HospitalComment on above:Order Comment: Specimen Type: BLOOD SPECIMENOrdering Facility: [facility] Address:[address] [place], [place] [address]Performed By: #### 34284-1 ####C[facility] LABORATORYCLIA [id number] [place] [id number] [place] AMERICABasophils Auto (Bld) [#/Vol]on 25-17-8286Ruuvciyzm (Bld) [#/Vol]10*3/uL<0.11[facility] HospitalBasophils/100 WBC Auto (Bld)on 77-80-5906Wgglwheiv/100 WBC (Bld) 0.3 %[facility]S HospitalBlood manual differential comment interpretation narrativeon 35-14-7425Xehciy differential comment Ankush (Bld) [Interp]AutoDayton Children'S HospitalCASE MANAGEMon 67-10-8796SDIU MANAGEMNormalHeywood Hospital W Auto Differential panel (Bld)on 08-29-2023 Basophils (Bld) [#/Vol]10*3/uLNormal<0.11[facility]falls HospitalComment on above:Order Comment: Specimen Type: BLOOD SPECIMENOrdering Facility: [facility] Address:[address] [place], [place] [address]Performed By: #### 69753- 8 ####C[facility] LABORATORYCLIA [id number] [place] [id number] [place] AMERICABasophils/100 WBC (Bld)0.3 %NormalGrandfalls Hospital Comment on above:Order Comment: Specimen Type: BLOOD SPECIMENOrdering Facility: [facility] Address:[address] [place] [address] Performed By: #### 82601-0 ####C[facility] LABORATORYCLIA [id number] [place] [id number] [place] AMERICADifferential cell count method Nom (Bld)AutoNormalGrandfalls HospitalComment on above:Order Comment: Specimen Type: BLOOD SPECIMENOrdering Facility: [facility] Address:[address] [place], [place] [address]Performed By: #### 85831-3 ####C[facility] LABORATORYCLIA [id number] [place] [address] [place] AMERICAEosinophils (Bld) [#/Vol]0.44 10*3/uLNormal<0.46Fabaystate noble hospital HospitalComment on above:Order Comment: Specimen Type: BLOOD SPECIMENOrdering Facility: [facility] Address:[address] [place] [address] Performed By: #### 99454-9 ####[facility] LABORATORYCLIA [id number] [place] [id number] [place] AMERICAEosinophils/100 WBC (Bld)6.6 % NormalHolyoke Medical CenterComment on above:Order Comment: Specimen Type: BLOOD SPECIMENOrdering Facility: [facility] Address:[address] [place], [place] [address]Performed By: #### 21576-3 ####[facility] LABORATORYCLIA [id number] [place] [address] [place] Erythrocyte distribution width (RBC) [Ratio]15.0 %Unzkzl97.5-15.0Holyoke Medical CenterComment on above:Order Comment: Specimen Type: BLOOD SPECIMENOrdering Facility: [facility] Address:[address] [place], [place] [address]Performed By: #### 80760-4 ####C[facility] LABORATORYCLIA [id number] [place] [id number] [place] AMERICAHematocrit (Bld) [Volume fraction]36.4 %Kvryfx65.0-46.0Fabaystate noble hospital HospitalComment on above:Order Comment: Specimen Type: BLOOD SPECIMENOrdering Facility: [facility] Address:[address] [place], [place] [address]Performed By: #### 95434- 8 ####[facility] LABORATORYCLIA [id number] [place] [id number] [place] AMERICAHemoglobin (Bld) [Mass/Vol]11.9 g/xPEjtgei29.5-15.5 [facility]falls HospitalComment on above:Order Comment: Specimen Type: BLOOD SPECIMENOrdering Facility: [facility] Address:[address] [place], [place] [address]Performed By: #### 96356-0 ####[facility] LABORATORYCLIA [id number] [place] [id number] [place] Immature granulocytes (Bld) [#/Vol]0.03 10*3/uLNormal<0.10[facility] Comment on above:Order Comment: Specimen Type: BLOOD SPECIMENOrdering Facility: [facility] Address:[address] [place] [address] Performed By: #### 20084-3 ####[facility] LABORATORYCLIA [id number] [place] [address] [place] AMERICAImmature granulocytes/100 WBC (Bld)0.4 %NormalGrandfalls HospitalComment on above:Order Comment: Specimen Type: BLOOD SPECIMENOrdering Facility: [facility] Address:[address] [place], [place] [address]Performed By: #### 01947-6 ####[facility] LABORATORYCLIA [id number] [place] [address] [place] Lymphocytes (Bld) [#/Vol]0.73 10*3/uLLow1.00-4.00Fabaystate noble hospital HospitalComment on above:Order Comment: Specimen Type: BLOOD SPECIMENOrdering Facility: [facility] Address:[address] [place], [place] [address]Performed By: #### 88699-7 ####[facility] LABORATORYCLIA [id number] [place] [id number] [place] OF AMERICALymphocytes/100 WBC (Bld)10.9 %NormalGrandfalls HospitalComment on above:Order Comment: Specimen Type: BLOOD SPECIMENOrdering Facility: [facility] Address:[address] [place], [place] [address]Performed By: #### 87289-7 ####[facility] LABORATORYCLIA [id number] [address] (RBC) [Entitic mass]29.6 mhMhbzrv65.0-34.0Fabaystate noble hospital HospitalComment on above:Order Comment: Specimen Type: BLOOD SPECIMENOrdering Facility: [facility] Address:[address] [place], [place] [address]Performed By: #### 42949-7 ####[facility] LABORATORYCLIA [id number] [address] (RBC) [Mass/Vol]32.7 g/wURsxfez79.5-36.0Fabaystate noble hospital HospitalComment on above:Order Comment: Specimen Type: BLOOD SPECIMENOrdering Facility: [facility] Address:[address] [place], [place] [address]Performed By: #### 86711-3 ####[facility] LABORATORYCLIA [id number] [address] (RBC) [Entitic vol] 90.5 rGTlzekd60.0-100.0Fabaystate noble hospital HospitalComment on above:Order Comment: Specimen Type: BLOOD SPECIMENOrdering Facility: [facility] Address:[address] [place], [place] [address]Performed By: #### 51540-1 ####[facility] LABORATORYCLIA [id number] [place] [address] [place] AMERICAMonocytes (Bld) [#/Vol]0.59 10*3/uLNormal<0.87Fabaystate noble hospital HospitalComment on above:Order Comment: Specimen Type: BLOOD SPECIMENOrdering Facility: [facility] Address:[address] [place], [place] [address]Performed By: #### 90798-7 ####C[facility] LABORATORYCLIA [id number] [place] [address] [place] AMERICAMonocytes/100 WBC (Bld)8.8 %NormalFabaystate noble hospital HospitalComment on above:Order Comment: Specimen Type: BLOOD SPECIMENOrdering Facility: [facility] Address:[address] [place], [place] [address]Performed By: #### 64163-0 ####C[facility] LABORATORYCLIA [id number] [place] [id number] [place] AMERICANeutrophils (Bld) [#/Vol]4.87 10*3/uLNormal1.45-7.50[facility]falls HospitalComment on above:Order Comment: Specimen Type: BLOOD SPECIMENOrdering Facility: [facility] Address:[address] [place], [place] [address]Performed By: #### 25984- 8 ####[facility] LABORATORYCLIA [id number] [place] [id number] [place] AMERICANeutrophils/100 WBC (Bld)73.0 %NormalHolyoke Medical Center Comment on above:Order Comment: Specimen Type: BLOOD SPECIMENOrdering Facility: [facility] Address:[address] [place] [address] Performed By: #### 21583-7 ####[facility] LABORATORYCLIA [id number] [place] [id number] [place] AMERICANucleated RBC (Bld) [#/Vol] 10*3/uLNormal<0.01[facility]falls HospitalComment on above:Order Comment: Specimen Type: BLOOD SPECIMENOrdering Facility: [facility] Address:[address] [place], [place] [address]Performed By: #### 54613-2 ####[facility] LABORATORYCLIA [id number] [place] [id number] [place] AMERICANucleated RBC/100 WBC (Bld) [Ratio]0.0 /100 WBCNormalHolyoke Medical Center Comment on above:Order Comment: Specimen Type: BLOOD SPECIMENOrdering Facility: [facility] Address:[address] [place] [address] Performed By: #### 65777-3 ####[facility] LABORATORYCLIA [id number] [place] [id number] [place] AMERICAPlatelet mean volume (Bld) [Entitic vol]8.9 fLLow9.0-12.7Fcentral hospital HospitalComment on above:Order Comment: Specimen Type: BLOOD SPECIMENOrdering Facility: [facility] Address:[address] [place], [place] [address]Performed By: #### 48943-6 ####[facility] LABORATORYCLIA [id number] [place] [id number] [facility] MEDICAL CENTERPlatelets (Bld) [#/Vol]266 10*3/pQEazddn835-545Inrhkspp HospitalComment on above:Order Comment: Specimen Type: BLOOD SPECIMENOrdering Facility: [facility] Address:[address] [place], [place] [address]Performed By: #### 95679-3 ####[facility] LABORATORYCLIA [id number] [place] [id number] [facility] CENTERRB (d) [#/Vol]4.02 10*6/uLNormal3.90-5.20Fabaystate noble hospital HospitalComment on above:Order Comment: Specimen Type: BLOOD SPECIMENOrdering Facility: [facility] Address:[address] [place], [place] [address]Performed By: #### 20062-4 ####[facility] LABORATORYCLIA [id number] [place] [id number] [facility]ICAL CENTERWBC (d) [#/Vol]6.68 10*3/uLNormal3.70-11.00Fabaystate noble hospital HospitalComment on above:Order Comment: Specimen Type: BLOOD SPECIMENOrdering Facility: [facility] Address:[address] [place], [place] [address]Performed By: #### 72200-2 ####[facility] LABORATORYCLIA [id number] [place] [id number] [facility] AMERICACONSULTon 21-80-0683IOUFXTWTkzoeeXbrngumd Hospital Eosinophils/100 WBC Auto (Bld)on 48-56-3130Fiwfwvnyftu/100 WBC (Bld)6.6 % [facility]S HospitalErythrocyte distribution width Auto (RBC) [Ratio]on 10-55-1404Jajsdgzytib distribution width (RBC) [Ratio]15.0 %11.5-15.0 [facility] HospitalHematocrit Auto (Bld) [Volume fraction]on 96-09-4822Krurcpqsih (Bld) [Volume fraction]36.4 %36.0-46.0[facility]S HospitalHemoglobin [Mass/volume] in Bloodon 29-39-0146Rwwgnoadzw (Bld) [Mass/Vol]11.9 g/dL11.5-15.5FSumma Health Wadsworth - Rittman Medical CenterLaboratory - Chemistry and Chemistry - challengeon 39-69-7257Jkxssdk [Mass/Vol]9.1 mg/dL 8.5-10.2FSumma Health Wadsworth - Rittman Medical CenterChloride [Moles/Vol]106 mmol/L97-105 [facility] HospitalCO2 [Moles/Vol]22 mmol/V87-12HocbomcouDayton Children'S HospitalCreatinine [Mass/Vol]0.87 mg/dL0.58-0.96[facility] HospitalGlucose [Mass/Vol]109 mg/pE12-05VkjrfawkpDayton Children'S Hospital Comment on above:The [place] Diabetes Association (ADA) provides guidance for cutoff values for fasting glucose andrandom glucose. The ADA defines fasting as no caloric intake for at least 8 hours. Fasting plasma glucose results between 100 to 125 mg/dL indicate increased risk for diabetes (prediabetes).Fasting pl asma glucose results greater than or equal to 126 mg/dL meet the criteria for diagnosis of diabetes. In the absence of unequivocal hyperglycemia, results should be confirmed by repeat testing. In a patient with classic symptoms of hyperglycemia or hyperglycemic crisis, random plasma glucose resultsgreater than or equal to 200 mg/dL meet the criteria for diagnosis of diabetes.Reference: Standardsof Medical Care in Diabetes 2016, [place] Diabetes Association. Diabetes Care. 2016.39(Suppl 1).Potassium [Moles/Vol]4.3 mmol/L3.7-5.1FSelect Medical Specialty Hospital - Cantonodium [Moles/Vol]140 mmol/F440-682VpulqmwwlDayton Children'S HospitalUrea nitrogen [Mass/Vol]19 mg/dL7-21[facility] HospitalLaboratory - Hematology and Cell countson 21-94-5505Ctopoakbnkp (Bld) [#/Vol]0.44 10*3/uL<0.46Fire[facility] Medical CenterImmature granulocytes (Bld) [#/Vol]0.03 10*3/uL<0.10[facility] HospitalImmature granulocytes/100 WBC (Bld)0.4 %[facility]S HospitalLeukocytes [#/volume] corrected for nucleated erythrocytes in Blood by Automated counon 25-87-1235QZP corrected for nucl RBC Auto (Bld) [#/Vol]6.68 k/uL3.70-11.00 [facility] HospitalLymphocytes Auto (Bld) [#/Vol]on 08-29-2023 Lymphocytes (Bld) [#/Vol]0.73 10*3/uL1.00-4.00[facility] Lymphocytes/100 WBC Auto (Bld)on 88-21-7500Xbxaesckqih/100 WBC (Bld)10.9 % [facility] HospitalH Auto (RBC) [Entitic mass]on 69-40-3464YST (RBC) [Entitic mass]29.6 pg26.0-34.0[facility]'S HospitalMCHC Auto (RBC) [Mass/Vol]on 13-14-5113XPQU (RBC) [Mass/Vol]32.7 g/dL30.5-36.0[facility] HospitalMCV Auto (RBC) [Entitic vol]on 00-30-4757MHM (RBC) [Entitic vol]90.5 fL80.0-100.0[facility] HospitalMonocytes Auto (Bld) [#/Vol]on 69-65-0690Lrefnpbig (Bld) [#/Vol]0.59 10*3/uL<0.87[facility] HospitalMonocytes/100 WBC Auto (Bld)on 08-07-7096Jszggivzk/100 WBC (Bld)8.8 %[facility] HospitalNURSING PROGon 97-52-2671VLNEQCV PROGNormalFairselect medical specialty [facility], [facility] HospitalNeutrophils Auto (Bld) [#/Vol]on 08-29-2023 Neutrophils (Bld) [#/Vol]4.87 10*3/uL1.45-7.50[facility] Neutrophils/100 WBC Auto (Bld)on 55-29-7563Sjajptjrecm/100 WBC (Bld)73.0 % [facility] HospitalNo Panel Informationon 04-75-2290Ggjenlone GFR (CKD-EPI)72 mL/min/1.73m???>=60[facility] HospitalComment on above:Estimated Glomerular Filtration Rate (eGFR) is calculated using the 2020 CKD-EPI creatinine equation. This equation utilizes serum creatinine, sex, and age as parameters. The creatinine assay has traceable calibration to isotope dilution-mass spectrometry. Refer to KDIGO guidelines for clinical inte rpretation. In patients with unstable renal function, e.g. those with acute kidney injury, the eGFRmay not accurately reflect actual GFR.Nucleated RBC Auto (Bld) [#/Vol]on 67-00-2905Rbzwcoeuh RBC (Bld) [#/Vol]10*3/uL<0.01[facility]'S HospitalNucleated erythrocytes [Presence] in Blood by Automated counton 78-13-8050Udrlwtccj RBC Auto Ql (Bld)0.0 /100{WBC}[facility]'S HospitalPlatelet mean volume Auto (Bld) [Entitic vol]on 83-85-4784Oxksmtxd mean volume (Bld) [Entitic vol]8.9 fL9.0-12.7FSumma Health [facility] Platelets Auto (Bld) [#/Vol]on 74-26-3584Zafqmatoz (Bld) [#/Vol]266 10*3/uL 150-400[facility]'S HospitalRBC Auto (Bld) [#/Vol]on 83-24-8210ZGH (Bld) [#/Vol]4.02 10*6/uL3.90-5.20[facility] Hospitalerum or plasma anion gap determinationon 07-70-8678Waxqf gap [Moles/Vol]12 mmol/L9-18 [facility] HospitalBasic metabolic 2000 panelon 29-28-1167Rxojb gap [Moles/Vol]11 mmol/LNormal9-18FCharlton Memorial HospitalComment on above:Order Comment: Specimen Type: BLOOD SPECIMENOrdering Facility: [facility] Address:[address] [place], [place] [id number] By: #### 96736- 2 ####CORNELIUS LABORATORYCLIA [id number] [place] [id number] [place] OF AMERICACalcium [Mass/Vol]9.3 mg/dLNormal8.5-10.2Fcentral hospital HospitalComment on above:Order Comment: Specimen Type: BLOOD SPECIMENOrdering Facility: [facility] Address:[address] [place], [place] [address]Performed By: #### 52548-1 ####CORNELIUS LABORATORYCLIA [id number] [place] [address] [place] OF AMERICAChloride [Moles/Vol]107 mmol/JAbxp89-077Onwwgird HospitalComment on above:Order Comment: Specimen Type: BLOOD SPECIMENOrdering Facility: [facility] Address:[address] [place], [place] [address]Performed By: #### 92267-0 ####CORNELIUS LABORATORYCLIA [id number] [place] [id number] [place] AMERICACO2 [Moles/Vol]23 mmol/JEgnhqf49-61Qfspslfi HospitalComment on above: Order Comment: Specimen Type: BLOOD SPECIMENOrdering Facility: [facility] Address:[address] [place], [place] [address]Performed By: #### 26136- 2 ####CORNELIUS LABORATORYCLIA [id number] [place] [address] [place] AMERICACreatinine [Mass/Vol]0.78 mg/dLNormal0.58-0.96[facility] Medical CenterComment on above:Order Comment: Specimen Type: BLOOD SPECIMENOrdering Facility: [facility] Address:[address] [place], [place] [address]Performed By: #### 72684-8 ####CORNELIUS LABORATORYCLIA [id number] [place] [id number] [place] AMERICACreatinine and Glomerular filtration rate.predicted panel (S/P/Bld)82 mL/min/1.73m???Normal>=60 [facility] on above:Order Comment: Specimen Type: BLOOD SPECIMENOrdering Facility: [facility] Address:[address] [place] [id number] Comment: Estimated Glomerular Filtration Rate (eGFR) is calculated using the 2020 CKD-EPI creatinine equation. This equation utilizes serum creatinine, sex, and age as parameters. The creatinine assay has traceable calibration to isotope dilution-mass spectrometry. Refer to KDIGO guidelines for clinical interpretation. In patients with unstable renal function, e.g. those with acute kidney injury, the eGFR may not accurately reflect actual GFR.Performed By: #### 25114-8 ####CORNELIUS LABORATORYCLIA [id number] [place] [id number] [place] AMERICAGlucose [Mass/Vol]111 mg/uPHfvk90-01Wymlbnxr HospitalComment on above:Order Comment: Specimen Type: BLOOD SPECIMENOrdering Facility: [facility] Address:[address] [place], [place] [address]Result Comment: The [place] Diabetes Association (ADA) provides guidance for cutoff [...] symptoms of hyperglycemia or hyperglycemic crisis, random plasmaglucose results greater than or equal to 200 mg/dL meet the criteria for diagnosis of diabetes.Reference: Standards of Medical Care in Diabetes 2016, [place] Diabetes Association. Diabetes Care. 2016.39(Suppl 1). Performed By: #### 93555-9 ####CORNELIUS LABORATORYCLIA [id number] [place] [id number] [place] AMERICAPotassium [Moles/Vol]4.7 mmol/LNormal3.7-5.1FCharlton Memorial HospitalComment on above:Order Comment: Specimen Type: BLOOD SPECIMENOrdering Facility: [facility] Address:[address] [place] [id number] By: #### 87544-3 ####CORNELIUS LABORATORYCLIA [id number] [place] [id number] [place] AMERICASodium [Moles/Vol]141 mmol/ENzwjzs385-610Mbptnfgx HospitalComment on above:Order Comment: Specimen Type: BLOOD SPECIMENOrdering Facility: [facility] Address:[address] [place], [place] [address]Performed By: #### 31195-3 ####CORNELIUS LABORATORYCLIA [id number] [place] [address] [place] AMERICAUrea nitrogen [Mass/Vol]19 mg/dLNormal7-21Grandfalls HospitalComment on above:Order Comment: Specimen Type: BLOOD SPECIMENOrdering Facility: [facility] Address:[address] [place], [place] [address]Performed By: #### 81905-5 ####CORNELIUS LABORATORYCLIA [id number] [place] [address] [place] AMERICABasophils Auto (Bld) [#/Vol]on 33-33-2742Lttmqonvc (Bld) [#/Vol]10*3/uL<0.11[facility] HospitalBasophils/100 WBC Auto (Bld)on 96-68-0618Bwvhgwukj/100 WBC (Bld) 0.1 %[facility] HospitalBlood manual differential comment interpretation narrativeon 12-68-4849Criric differential comment Ankush (Bld) [Interp][facility] WestCASE MANAGEMon 33-75-4039RAJW MANAGEMNormalHolyoke Medical CenterCB W Auto Differential panel (Bld)on 08-28-2023 Basophils (Bld) [#/Vol]10*3/uLNormal<0.11[facility] HospitalComment on above:Order Comment: Specimen Type: BLOOD SPECIMENOrdering Facility: [facility] Address:[address] [place], [place] [address]Performed By: #### 92366- 8 ####CORNELIUS LABORATORYCLIA [id number] [place] [address] [place] AMERICABasophils/100 WBC (Bld)0.1 %NormalGrandfalls Hospital Comment on above:Order Comment: Specimen Type: BLOOD SPECIMENOrdering Facility: [facility] Address:[address] [place] [address] Performed By: #### 45803-9 ####CORNELIUS LABORATORYCLIA [id number] [place] [id number] [place] AMERICADifferential cell count method Nom (Bld)AutoNormalGrandfalls HospitalComment on above:Order Comment: Specimen Type: BLOOD SPECIMENOrdering Facility: [facility] Address:[address] [place], [place] [address]Performed By: #### 66898-2 ####CORNELIUS LABORATORYCLIA [id number] [place] [address] [place] AMERICAEosinophils (Bld) [#/Vol]0.37 10*3/uLNormal<0.46Fabaystate noble hospital HospitalComment on above:Order Comment: Specimen Type: BLOOD SPECIMENOrdering Facility: [facility] Address:[address] [place] [address] Performed By: #### 41126-9 ####CORNELIUS LABORATORYCLIA [id number] [place] [id number] [place] AMERICAEosinophils/100 WBC (Bld)5.5 % NormalGrandfalls HospitalComment on above:Order Comment: Specimen Type: BLOOD SPECIMENOrdering Facility: [facility] Address:[address] [place], [place] [address]Performed By: #### 18573-2 ####CORNELIUS LABORATORYCLIA [id number] [place] [id number] [place] Erythrocyte distribution width (RBC) [Ratio]15.1 %High11.5-15.0[facility] Comment on above:Order Comment: Specimen Type: BLOOD SPECIMENOrdering Facility: [facility] Address:[address] [place] [address] Performed By: #### 66319-7 ####CORNELIUS LABORATORYCLIA [id number] [place] [id number] [place] AMERICAHematocrit (Bld) [Volume fraction]34.5 %Low36.0-46.0Fabaystate noble hospital HospitalComment on above:Order Comment: Specimen Type: BLOOD SPECIMENOrdering Facility: [facility] Address:[address] [place], [place] [address]Performed By: #### 65434-0 ####CORNELIUS LABORATORYCLIA [id number] [place] [id number] [place] AMERICAHemoglobin (Bld) [Mass/Vol]11.0 g/dLLow11.5-15.5Fcentral hospital HospitalComment on above:Order Comment: Specimen Type: BLOOD SPECIMENOrdering Facility: [facility] Address:[address] [place], [place] [address]Performed By: #### 90438-3 ####CORNELIUS LABORATORYCLIA [id number] [place] [id number] [place] AMERICAImmature granulocytes (Bld) [#/Vol]0.03 10*3/uLNormal<0.10Fabaystate noble hospital HospitalComment on above:Order Comment: Specimen Type: BLOOD SPECIMENOrdering Facility: [facility] Address:[address] [place], [place] [address]Performed By: #### 41530- 8 ####CORNELIUS LABORATORYCLIA [id number] [place] [id number] [place] AMERICAImmature granulocytes/100 WBC (Bld)0.4 %NormalFabaystate noble hospital HospitalComment on above:Order Comment: Specimen Type: BLOOD SPECIMENOrdering Facility: [facility] Address:[address] [place], [place] [address]Performed By: #### 59166-8 ####CORNELIUS LABORATORYCLIA [id number] [place] [id number] [place] AMERICALymphocytes (Bld) [#/Vol]0.61 10*3/uLLow1.00-4.00Fabaystate noble hospital HospitalComment on above:Order Comment: Specimen Type: BLOOD SPECIMENOrdering Facility: [facility] Address:[address] [place], [place] [address]Performed By: #### 55588-9 ####CORNELIUS LABORATORYCLIA [id number] [place] [id number] [place] AMERICALymphocytes/100 WBC (Bld)9.0 %NormalGrandfalls Hospital Comment on above:Order Comment: Specimen Type: BLOOD SPECIMENOrdering Facility: [facility] Address:[address] [place] [address] Performed By: #### 17191-8 ####CORNELIUS LABORATORYCLIA [id number] [address] (RBC) [Entitic mass]29.3 ipEwdxdc34.0-34.0Fabaystate noble hospital HospitalComment on above:Order Comment: Specimen Type: BLOOD SPECIMENOrdering Facility: [facility] Address:[address] [place], [place] [address]Performed By: #### 87837-8 ####CORNELIUS LABORATORYCLIA [id number] [address]ETHC (RBC) [Mass/Vol]31.9 g/yBWrhbfa55.5-36.0[facility]falls HospitalComment on above:Order Comment: Specimen Type: BLOOD SPECIMENOrdering Facility: [facility] Address:[address] [place], [place] [address]Performed By: #### 12210- 8 ####CORNELIUS LABORATORYCLIA [id number] [address] (RBC) [Entitic vol]91.8 nGAwgfre49.0-100.0[facility] HospitalComment on above:Order Comment: Specimen Type: BLOOD SPECIMENOrdering Facility: [facility] Address:[address] [place], [place] [address]Performed By: #### 91745-1 ####CORNELIUS LABORATORYCLIA [id number] [place] [address] [place] [facility] MED[facility] CENTERMonocytes (Bld) [#/Vol] 0.44 10*3/uLNormal<0.87Fabaystate noble hospital HospitalComment on above:Order Comment: Specimen Type: BLOOD SPECIMENOrdering Facility: [facility] Address:[address] [place], [place] [address]Performed By: #### 45930-9 ####CORNELIUS LABORATORYCLIA [id number] [place] [id number] [place] AMERICAMonocytes/100 WBC (Bld)6.5 %NormalGrandfalls HospitalComment on above: Order Comment: Specimen Type: BLOOD SPECIMENOrdering Facility: [facility] Address:[address] [place], [place] [address]Performed By: #### 71681- 8 ####CORNELIUS LABORATORYCLIA [id number] [place] [id number] [place] AMERICANeutrophils (Bld) [#/Vol]5.30 10*3/uLNormal1.45-7.50 [facility] HospitalComment on above:Order Comment: Specimen Type: BLOOD SPECIMENOrdering Facility: [facility] Address:[address] [place], [place] [address]Performed By: #### 43571-0 ####CORNELIUS LABORATORYCLIA [id number] [place] [id number] [place] Neutrophils/100 WBC (Bld)78.5 %NormalGrandfalls HospitalComment on above:Order Comment: Specimen Type: BLOOD SPECIMENOrdering Facility: [facility] Address:[address] [place], [place] [address]Performed By: #### 06017- 8 ####CORNELIUS LABORATORYCLIA [id number] [place] [id number] [place] AMERICANucleated RBC (Bld) [#/Vol]10*3/uLNormal<0.01[facility] HospitalComment on above:Order Comment: Specimen Type: BLOOD SPECIMENOrdering Facility: [facility] Address:[address] [place], [place] [address]Performed By: #### 09219-1 ####CORNELIUS LABORATORYCLIA [id number] [place] [id number] [place] AMERICANucleated RBC/100 WBC (Bld) [Ratio]0.0 /100 WBCNormalGrandfalls HospitalComment on above:Order Comment: Specimen Type: BLOOD SPECIMENOrdering Facility: [facility] Address:[address] [place], [place] [address]Performed By: #### 94283-5 ####VIPINLISSETH LABORATORYCLIA [id number] [place] [id number] [place] AMERICAPlatelet mean volume (Bld) [Entitic vol]8.9 fLLow 9.0-12.7Fcentral hospital HospitalComment on above:Order Comment: Specimen Type: BLOOD SPECIMENOrdering Facility: [facility] Address:[address] [place], [place] [address]Performed By: #### 98991-4 ####CORNELIUS LABORATORYCLIA [id number] [place] [id number] [place] Platelets (Bld) [#/Vol]236 10*3/xINwzdzj133-381Mbooerms HospitalComment on above:Order Comment: Specimen Type: BLOOD SPECIMENOrdering Facility: [facility] Address:[address] [place], [place] [address]Performed By: #### 45844-4 ####CORNELIUS LABORATORYCLIA [id number] [place] [id number] [place] AMERICARBC (Bld) [#/Vol]3.76 10*6/uLLow3.90-5.20Fabaystate noble hospital HospitalComment on above:Order Comment: Specimen Type: BLOOD SPECIMENOrdering Facility: [facility] Address:[address] [place], [place] [address]Performed By: #### 42802-2 ####CORNELIUS LABORATORYCLIA [id number] [place] [id number] [place] [facility] MEDICAL CENTERWBC (Bld) [#/Vol]6.76 10*3/uLNormal3.70-11.00Fabaystate noble hospital HospitalComment on above:Order Comment: Specimen Type: BLOOD SPECIMENOrdering Facility: [facility] Address:[address] [place], [place] [address]Performed By: #### 66941-0 ####CORNELIUS LABORATORYCLIA [id number] [place] [id number] [facility] CENTERCONSULTon 25-18-9608NNVNNRTFraqxlMczxngxk HospitalEosinophils/100 WBC Auto (Bld)on 17-11-3462Ylxrkfiaxpj/100 WBC (Bld)5.5 %[facility]S HospitalErythrocyte distribution width Auto (RBC) [Ratio]on 54-67-5117Zktcvfyeyir distribution width (RBC) [Ratio]15.1 %11.5-15.0[facility] Hematocrit Auto (Bld) [Volume fraction]on 04-17-9694Ksglcdvzvl (Bld) [Volume fraction]34.5 %36.0-46.0[facility] HospitalHemoglobin [Mass/volume] in Bloodon 49-41-2088Dbeckpxhts (Bld) [Mass/Vol]11.0 g/dL11.5-15.5 [facility] HospitalLaboratory - Chemistry and Chemistry - challengeon 24-32-4749Cgwvqxl [Mass/Vol]9.3 mg/dL8.5-10.2FSumma Health Wadsworth - Rittman Medical CenterChloride [Moles/Vol]107 mmol/F44-501EfyriowyjDayton Children'S HospitalCO2 [Moles/Vol]23 mmol/P53-99JumbsrevjDayton Children'S HospitalCreatinine [Mass/Vol]0.78 mg/dL0.58-0.96[facility] HospitalGlucose [Mass/Vol] 111 mg/wV08-51VzmziqqpnDayton Children'S HospitalComment on above:The [place] Diabetes Association (ADA) provides guidance for cutoff [...] hyperglycemia or hyperglycemic crisis, random plasma glucose resultsgreater than or equal to 200 mg/dL meet the criteria for diagnosis of diabetes.Reference: Standardsof Medical Care in Diabetes 2016, [place] Diabetes Association. Diabetes Care. 2016.39(Suppl 1). Potassium [Moles/Vol]4.7 mmol/L3.7-5.1FSelect Medical Specialty Hospital - Cantonodium [Moles/Vol]141 mmol/W322-099TmfrsembuDayton Children'S HospitalUrea nitrogen [Mass/Vol]19 mg/dL7-21[facility] HospitalLaboratory - Hematology and Cell countson 30-74-5711Jazegkjymwj (Bld) [#/Vol]0.37 10*3/uL<0.46[facility] HospitalImmature granulocytes (Bld) [#/Vol]0.03 10*3/uL<0.10 [facility] HospitalImmature granulocytes/100 WBC (Bld)0.4 % [facility]S HospitalLeukocytes [#/volume] corrected for nucleated erythrocytes in Blood by Automated counon 46-71-4868KZK corrected for nucl RBC Auto (Bld) [#/Vol]6.76 k/uL3.70-11.00[facility] Lymphocytes Auto (Bld) [#/Vol]on 38-53-7136Poulxabblsj (Bld) [#/Vol]0.61 10*3/uL 1.00-4.00[facility] HospitalLymphocytes/100 WBC Auto (Bld)on 68-78-6774Mhhxsbgcrcp/100 WBC (Bld)9.0 %[facility] HospitalH Auto (RBC) [Entitic mass]on 73-53-0761SLY (RBC) [Entitic mass]29.3 pg26.0-34.0 [facility]S HospitalMCHC Auto (RBC) [Mass/Vol]on 49-77-1570AUAQ (RBC) [Mass/Vol]31.9 g/dL30.5-36.0[facility] HospitalMCV Auto (RBC) [Entitic vol]on 49-98-7951WVP (RBC) [Entitic vol]91.8 fL80.0-100.0 [facility] HospitalMonocytes Auto (Bld) [#/Vol]on 08-28-2023 Monocytes (Bld) [#/Vol]0.44 10*3/uL<0.87[facility] Monocytes/100 WBC Auto (Bld)on 73-62-6805Rhfeqefvz/100 WBC (Bld)6.5 %[facility] HospitalNURSING PROGon 70-73-2454DHRMPKY PROGNormalFairview HospitalNURSING PROGNormalGrandfalls HospitalNeutrophils Auto (Bld) [#/Vol]on 01-38-7764Bzizoffkkvc (Bld) [#/Vol]5.30 10*3/uL1.45-7.50[facility] HospitalNeutrophils/100 WBC Auto (Bld)on 46-18-9627Lzemedfkico/100 WBC (Bld)78.5 %[facility] HospitalNo Panel Informationon 08-28-2023 Estimated GFR (CKD-EPI)82 mL/min/1.73m???>=60[facility] Comment on above:Estimated Glomerular Filtration Rate (eGFR) is calculated using the 2020 CKD-EPI creatinine equation. This equation utilizes serum creatinine, sex, and age as parameters. The creatinine assay has traceable calibration to isotope dilution-mass spectrometry. Refer to KDIGO guidelines for clinical inte rpretation. In patients with unstable renal function, e.g. those with acute kidney injury, the eGFRmay not accurately reflect actual GFR.Nucleated RBC Auto (Bld) [#/Vol]on 68-35-0212Ijakilyua RBC (Bld) [#/Vol]10*3/uL<0.01[facility] HospitalNucleated erythrocytes [Presence] in Blood by Automated counton 54-45-2025Hjskimjos RBC Auto Ql (Bld)0.0 /100{WBC}[facility]S HospitalPT EDon 97-00-1871OL EDNormalFabaystate noble hospital HospitalPlatelet mean volume Auto (Bld) [Entitic vol]on 58-70-6006Dfhsfusf mean volume (Bld) [Entitic vol] 8.9 fL9.0-12.7FSumma Health Wadsworth - Rittman Medical CenterPlatelets Auto (Bld) [#/Vol]on 38-37-8520Jrktziysi (Bld) [#/Vol]236 10*3/cT944-842JnmrniffwDayton Children'S HospitalRBC Auto (Bld) [#/Vol]on 43-06-1660LVM (Bld) [#/Vol]3.76 10*6/uL3.90-5.20 [facility] Hospitalerum or plasma anion gap determinationon 70-24-7507Qrigq gap [Moles/Vol]11 mmol/L9-18FSumma Health Wad[facility] - [facility] Center THERAPY NTon 71-79-4271EGSBYVT NTNormalHolyoke Medical CenterBasic metabolic 2000 panelon 83-28-5353Hnljl gap [Moles/Vol]9 mmol/LNormal9-18FCharlton Memorial Hospital Comment on above:Order Comment: Specimen Type: BLOOD SPECIMENOrdering Facility: [facility] Address:[address] [place] [address] Performed By: #### 91056-6 ####CORNELIUS LABORATORYCLIA [id number] [place] [address] [place] AMERICACalcium [Mass/Vol]9.0 mg/dL Normal8.5-10.2FCharlton Memorial HospitalComment on above:Order Comment: Specimen Type: BLOOD SPECIMENOrdering Facility: [facility] Address:[address] [place], [place] [address]Performed By: #### 47125-4 ####CORNELIUS LABORATORYCLIA [id number] [place] [address] [place] Chloride [Moles/Vol]103 mmol/KOivhcm17-120Rqizsoin HospitalComment on above: Order Comment: Specimen Type: BLOOD SPECIMENOrdering Facility: [facility] Address:[address] [place], [place] [address]Performed By: #### 42365- 2 ####CORNELIUS LABORATORYCLIA [id number] [place] [id number] [place] AMERICACO2 [Moles/Vol]27 mmol/LLnogsa73-86Fyjgiixa Hospital Comment on above:Order Comment: Specimen Type: BLOOD SPECIMENOrdering Facility: [facility] Address:[address] [place] [address] Performed By: #### 21045-7 ####CORNELIUS LABORATORYCLIA [id number] [place] [id number] [place] AMERICACreatinine [Mass/Vol]0.69 mg/dLNormal0.58-0.96[facility] HospitalComment on above:Order Comment: Specimen Type: BLOOD SPECIMENOrdering Facility: [facility] Address:[address] [place], [place] [address]Performed By: #### 85115-0 ####VIPINLISSETH LABORATORYCLIA [id number] [place] [id number] [place] AMERICACreatinine and Glomerular filtration rate.predicted panel (S/P/Bld)93 mL/min/1.73m???Normal>=60[facility] on above:Order Comment: Specimen Type: BLOOD SPECIMENOrdering Facility: [facility] Address:[address] [place], [place] [address]Result Comment: Estimated Glomerular Filtration Rate (eGFR) is calculated using the 2020 CKD-EPI creatinine equation. This equation utilizes serum creatinine, sex, and age as parameters. The creatinine assay has traceable calibration to isotope dilution-mass spectrometry. Refer to KDIGO guidelines for clinical interpretation. In patients with unstable renal function, e.g. those with acute kidney injury, the eGFR may not accurately reflect actual GFR.Performed By: #### 07564-2 ####CORNELIUS LABORATORYCLIA [id number] [place] [id number] [place] AMERICAGlucose [Mass/Vol]103 mg/vHWgjb47-52Wrcqrsdj HospitalComment on above: Order Comment: Specimen Type: BLOOD SPECIMENOrdering Facility: [facility] Address:[address] [place], [place] [address]Result Comment: The [place] Diabetes Association (ADA) provides guidance for cutoff values for fast ing glucose and random glucose. The ADA defines fasting as no caloric intake for at least 8 hours. Fasting plasma glucose results between 100 to 125 mg/dL indicate increased risk for diabetes (prediabetes).Fasting plasma glucose results greater than or equal to 126 mg/dL meet the criteria for diagnosis of diabetes. In the absence of unequivocal hyperglycemia, results should be confirmed by repeattesting. In a patient with classic symptoms of hyperglycemia or hyperglycemic crisis, random plasmaglucose results greater than or equal to 200 mg/dL meet the criteria for diagnosis of diabetes.Reference: Standards of Medical Care in Diabetes 2016, [place] Diabetes Association. Diabetes Care. 2016.39(Suppl 1).Performed By: #### 19396-9 ####CORNELIUS LABORATORYCLIA [id number] [place] [id number] [place] Potassium [Moles/Vol]4.2 mmol/LNormal3.7-5.1Fcentral hospital HospitalComment on above: Order Comment: Specimen Type: BLOOD SPECIMENOrdering Facility: [facility] Address:[address] [place], [place] [address]Performed By: #### 91478- 2 ####CORNELIUS LABORATORYCLIA [id number] [place] [address] [place] AMERICASodium [Moles/Vol]139 mmol/QGvtmzp116-733Ktyupovv HospitalComment on above:Order Comment: Specimen Type: BLOOD SPECIMENOrdering Facility: [facility] Address:[address] [place], [place] [address]Performed By: #### 58322-6 ####CORNELIUS LABORATORYCLIA [id number] [place] [address] [place] AMERICAUrea nitrogen [Mass/Vol]12 mg/dLNormal7-21Fabaystate noble hospital HospitalComment on above:Order Comment: Specimen Type: BLOOD SPECIMENOrdering Facility: [facility] Address:[address] [place], [place] [address]Performed By: #### [id number] ####[facility] LABORATORYCLIA [id number] [place] [address] [place] AMERICABasophils Auto (Bld) [#/Vol]on 73-51-3715Kwyrtflvt (Bld) [#/Vol]10*3/uL<0.11[facility] HospitalBasophils/100 WBC Auto (Bld)on 62-77-4825Jyovcksoq/100 WBC (Bld)0.1 %[facility] Blood manual differential comment interpretation narrativeon 26-76-5503Klprqb differential comment Ankush (Bld) [Interp]AutoDayton Children'S HospitalCB W Auto Differential panel (Bld)on 79-98-9986Dwaulxqdn (Bld) [#/Vol]10*3/uLNormal <0.11[facility]falls HospitalComment on above:Order Comment: Specimen Type: BLOOD SPECIMENOrdering Facility: [facility] Address:[address] [place], [place] [address]Performed By: #### 29034-1 ####[facility] LABORATORYCLIA [id number] [place] [id number] [place] Basophils/100 WBC (Bld)0.1 %NormalGrandfalls HospitalComment on above:Order Comment: Specimen Type: BLOOD SPECIMENOrdering Facility: [facility] Address:[address] [place], [place] [address]Performed By: #### 46600- 8 ####CORNELIUS LABORATORYCLIA [id number] [place] [address] [place] AMERICADifferential cell count method Nom (Bld)AutoNormal [facility]falls HospitalComment on above:Order Comment: Specimen Type: BLOOD SPECIMENOrdering Facility: [facility] Address:[address] [place], [place] [address]Performed By: #### 57851-9 ####CORNELIUS LABORATORYCLIA [id number] [place] [address] [place] Eosinophils (Bld) [#/Vol]0.33 10*3/uLNormal<0.46[facility]falls HospitalComment on above:Order Comment: Specimen Type: BLOOD SPECIMENOrdering Facility: [facility] Address:[address] [place], [place] [address]Performed By: #### 12586-4 ####CORNELI[facility] LABORATORYCLIA [id number] [place] [id number] [place] AMERICAEosinophils/100 WBC (Bld)4.1 %NormalGrandfalls HospitalComment on above:Order Comment: Specimen Type: BLOOD SPECIMENOrdering Facility: [facility] Address:[address] [place], [place] [address]Performed By: #### 74578-2 ####CORNELIUS LABORATORYCLIA [id number] [place] [address] [place] AMERICAErythrocyte distribution width (RBC) [Ratio]15.1 %High11.5-15.0Fabaystate noble hospital HospitalComment on above:Order Comment: Specimen Type: BLOOD SPECIMENOrdering Facility: [facility] Address:[address] [place], [place] [address]Performed By: #### 99284-5 ####CORNELIUS LABORATORYCLIA [id number] [place] [id number] [place] AMERICAHematocrit (Bld) [Volume fraction]36.2 %Normal 36.0-46.0Fabaystate noble hospital HospitalComment on above:Order Comment: Specimen Type: BLOOD SPECIMENOrdering Facility: [facility] Address:[address] [place], [place] [address]Performed By: #### 96366-2 ####CORNELIUS LABORATORYCLIA [id number] [place] [id number] [place] Hemoglobin (Bld) [Mass/Vol]12.0 g/zLPfsxtq84.5-15.5Fcentral hospital HospitalComment on above:Order Comment: Specimen Type: BLOOD SPECIMENOrdering Facility: [facility] Address:[address] [place], [place] [address]Performed By: #### 81384-2 ####CORNELIUS LABORATORYCLIA [id number] [place] [id number] [place] AMERICAImmature granulocytes (Bld) [#/Vol]0.04 10*3/uL Normal<0.10[facility] CenterComment on above:Order Comment: Specimen Type: BLOOD SPECIMENOrdering Facility: [facility] Address:[address] [place], [place] [address]Performed By: #### 72547-9 ####CORNELIUS LABORATORYCLIA [id number] [place] [id number] [place] Immature granulocytes/100 WBC (Bld)0.5 %NormalFabaystate noble hospital HospitalComment on above: Order Comment: Specimen Type: BLOOD SPECIMENOrdering Facility: [facility] Address:[address] [place], [place] [address]Performed By: #### 84268- 8 ####CORNELIUS LABORATORYCLIA [id number] [place] [id number] [place] OF AMERICALymphocytes (Bld) [#/Vol]1.04 10*3/uLNormal1.00-4.00 [facility] HospitalComment on above:Order Comment: Specimen Type: BLOOD SPECIMENOrdering Facility: [facility] Address:[address] [place], [place] [address]Performed By: #### 02447-8 ####CORNELI[facility] LABORATORYCLIA [id number] [address] Lymphocytes/100 WBC (Bld)13.0 %NormalFabaystate noble hospital HospitalComment on above:Order Comment: Specimen Type: BLOOD SPECIMENOrdering Facility: [facility] Address:[address] [place], [place] [address]Performed By: #### 85434- 8 ####CORNELIUS LABORATORYCLIA [id number] [address] (RBC) [Entitic mass]29.9 rmVmozxg86.0-34.0Fabaystate noble hospital HospitalComment on above:Order Comment: Specimen Type: BLOOD SPECIMENOrdering Facility: [facility] Address:[address] [place], [place] [address]Performed By: #### 49810-8 ####CORNEL[facility] LABORATORYCLIA [id number] [address] (RBC) [Mass/Vol] 33.1 g/dDWnpwqi23.5-36.0[facility] HospitalComment on above:Order Comment: Specimen Type: BLOOD SPECIMENOrdering Facility: [facility] Address:[address] [place], [place] [address]Performed By: #### 48445-4 ####CORNELIUS LABORATORYCLIA [id number] [address] (RBC) [Entitic vol]90.0 lLJlcrig35.0-100.0Fabaystate noble hospital HospitalComment on above:Order Comment: Specimen Type: BLOOD SPECIMENOrdering Facility: [facility] Address:[address] [place], [place] [address]Performed By: #### 86824-8 ####CORNELI[facility] LABORATORYCLIA [id number] [place] [address] [place] AMERICAMonocytes (Bld) [#/Vol] 0.59 10*3/uLNormal<0.87[facility] HospitalComment on above:Order Comment: Specimen Type: BLOOD SPECIMENOrdering Facility: [facility] Address:[address] [place], [place] [address]Performed By: #### 96000-9 ####CORNELI[facility] LABORATORYCLIA [id number] [place] [id number] [place] AMERICAMonocytes/100 WBC (Bld)7.4 %NormalGrandfalls HospitalComment on above: Order Comment: Specimen Type: BLOOD SPECIMENOrdering Facility: [facility] Address:[address] [place], [place] [address]Performed By: #### 52998- 8 ####CORNEL[facility] LABORATORYCLIA [id number] [place] [address] [place] AMERICANeutrophils (Bld) [#/Vol]6.00 10*3/uLNormal1.45-7.50 [facility] HospitalComment on above:Order Comment: Specimen Type: BLOOD SPECIMENOrdering Facility: [facility] Address:[address] [place], [place] [address]Performed By: #### 78525-9 ####CORNEL[facility] LABORATORYCLIA [id number] [place] [id number] [place] Neutrophils/100 WBC (Bld)74.9 %NormalGrandfalls HospitalComment on above:Order Comment: Specimen Type: BLOOD SPECIMENOrdering Facility: [facility] Address:[address] [place], [place] [address]Performed By: #### 46826- 8 ####CORNEL[facility] LABORATORYCLIA [id number] [place] [id number] [place] AMERICANucleated RBC (Bld) [#/Vol]10*3/uLNormal<0.01[facility] HospitalComment on above:Order Comment: Specimen Type: BLOOD SPECIMENOrdering Facility: [facility] Address:[address] [place], [place] [address]Performed By: #### 52738-1 ####C[facility] LABORATORYCLIA [id number] [place] [id number] [place] AMERICANucleated RBC/100 WBC (Bld) [Ratio]0.0 /100 WBCNoalGrandfalls HospitalComment on above:Order Comment: Specimen Type: BLOOD SPECIMENOrdering Facility: [facility] Address:[address] [place], [place] [address]Performed By: #### 17746-7 ####CORNEL[facility] LABORATORYCLIA [id number] [place] [id number] [place] AMERICAPlatelet mean volume (Bld) [Entitic vol]8.7 fLLow 9.0-12.7Fcentral hospital HospitalComment on above:Order Comment: Specimen Type: BLOOD SPECIMENOrdering Facility: [facility] Address:[address] [place], [place] [address]Performed By: #### 98227-2 ####CORNEL[facility] LABORATORYCLIA [id number] [place] [id number] [place] Platelets (Bld) [#/Vol]265 10*3/qATjjbbq459-466Lqzulftf HospitalComment on above:Order Comment: Specimen Type: BLOOD SPECIMENOrdering Facility: [facility] Address:[address] [place], [place] [address]Performed By: #### 36387-0 ####CORNEL[facility] LABORATORYCLIA [id number] [place] [id number] [place] AMERICARBC (Bld) [#/Vol]4.02 10*6/uLNormal3.90-5.20 [facility] HospitalComment on above:Order Comment: Specimen Type: BLOOD SPECIMENOrdering Facility: [facility] Address:[address] [place], [place] [address]Performed By: #### 43668-8 ####C[facility] LABORATORYCLIA [id number] [place] [id number] [place] AMERICAWBC (Bld) [#/Vol]8.01 10*3/uLNormal3.70-11.00[facility] HospitalComment on above:Order Comment: Specimen Type: BLOOD SPECIMENOrdering Facility: [facility] Address:[address] [place] [place], [place] [address]Performed By: #### 44195- 8 ####CORNEL[facility] LABORATORYCLIA [id number] [place] [address] [place] AMERICAEosinophils/100 WBC Auto (Bld)on 08-27-2023 Eosinophils/100 WBC (Bld)4.1 %[facility] HospitalErythrocyte distribution width Auto (RBC) [Ratio]on 35-47-8442Kqjbzbhbrcs distribution width (RBC) [Ratio]15.1 %11.5-15.0[facility] HospitalHematocrit Auto (Bld) [Volume fraction]on 85-53-3523Ovtxbevbdc (Bld) [Volume fraction]36.2 % 36.0-46.0[facility] HospitalHemoglobin [Mass/volume] in Bloodon 44-90-8992Criohqlmld (Bld) [Mass/Vol]12.0 g/dL11.5-15.5FSumma Health Wadsworth - Rittman Medical CenterLaboratory - Chemistry and Chemistry - challengeon 08-27-2023 Calcium [Mass/Vol]9.0 mg/dL8.5-10.2FSumma Health Wadsworth - Rittman Medical CenterChloride [Moles/Vol]103 mmol/R21-389RktbuncdeDayton Children'S HospitalCO2 [Moles/Vol]27 mmol/I48-89EtgcjwyerDayton Children'S HospitalCreatinine [Mass/Vol]0.69 mg/dL 0.58-0.96[facility] HospitalGlucose [Mass/Vol]103 mg/dL74-99 [facility] HospitalComment on above:The [place] Diabetes Association (ADA) provides guidance for cutoff [...] hyperglycemia or hyperglycemic crisis, random plasma glucose resultsgreater than or equal to 200 mg/dL meet the criteria for diagnosis of diabetes.Reference: Standardsof Medical Care in Diabetes 2016, [place] Diabetes Association. Diabetes Care. 2016.39(Suppl 1). Potassium [Moles/Vol]4.2 mmol/L3.7-5.1FSelect Medical Specialty Hospital - Cantonodium [Moles/Vol]139 mmol/P632-783WomopyctfDayton Children'S HospitalUrea nitrogen [Mass/Vol]12 mg/dL7-21[facility] HospitalLaboratory - Hematology and Cell countson 87-12-9569Fkrjdhogtvm (Bld) [#/Vol]0.33 10*3/uL<0.46[facility] HospitalImmature granulocytes (Bld) [#/Vol]0.04 10*3/uL<0.10 [facility] HospitalImmature granulocytes/100 WBC (Bld)0.5 % [facility] HospitalLeukocytes [#/volume] corrected for nucleated erythrocytes in Blood by Automated counon 10-60-3302ZDQ corrected for nucl RBC Auto (Bld) [#/Vol]8.01 k/uL3.70-11.00[facility] Lymphocytes Auto (Bld) [#/Vol]on 09-59-5551Qebmcpzvrcr (Bld) [#/Vol]1.04 10*3/uL 1.00-4.00[facility] HospitalLymphocytes/100 WBC Auto (Bld)on 73-17-6638Rlrsnzxuwyn/100 WBC (Bld)13.0 %[facility] HospitalH Auto (RBC) [Entitic mass]on 74-72-0682LRW (RBC) [Entitic mass]29.9 pg26.0-34.0 [facility] HospitalMCHC Auto (RBC) [Mass/Vol]on 69-28-6275WZSW (RBC) [Mass/Vol]33.1 g/dL30.5-36.0[facility] HospitalMCV Auto (RBC) [Entitic vol]on 36-56-5085LTP (RBC) [Entitic vol]90.0 fL80.0-100.0 [facility] HospitalMonocytes Auto (Bld) [#/Vol]on 02-18-2024 Monocytes (Bld) [#/Vol]0.59 10*3/uL<0.87[facility] Monocytes/100 WBC Auto (Bld)on 07-69-2379Pvepfkdti/100 WBC (Bld)7.4 %[facility] HospitalNURSING PROGon 34-29-0371GXUWRVB PROGNormalFairselect medical specialty hospital - boardman, inc HospitalNeutrophils Auto (Bld) [#/Vol]on 01-52-8280Trcdqcsgrlo (Bld) [#/Vol]6.00 10*3/uL1.45-7.50[facility] HospitalNeutrophils/100 WBC Auto (Bld) on 69-34-7459Qdspnvepkbw/100 WBC (Bld)74.9 %[facility] HospitalNo Panel Informationon 39-16-9053Etsnsiyag GFR (CKD-EPI)93 mL/min/1.73m???>=60 [facility] HospitalComment on above:Estimated Glomerular Filtration Rate (eGFR) is calculated using the 2020 CKD-EPI creatinine equation. This equation utilizes serum creatinine, sex, and age as parameters. The creatinine assay has traceable calibration to isotope dilution-mass spectrometry. Refer to KDIGO guidelines for clinical interpretation. In patients with unstable renal function, e.g. those with acute kidney injury, the eGFRmay not accurately reflect actual GFR.Nucleated RBC Auto (Bld) [#/Vol]on 08-27-2023 Nucleated RBC (Bld) [#/Vol]10*3/uL<0.01[facility] Nucleated erythrocytes [Presence] in Blood by Automated counton 08-27-2023 Nucleated RBC Auto Ql (Bld)0.0 /100{WBC}[facility] Platelet mean volume Auto (Bld) [Entitic vol]on 38-96-3272Duoyghpj mean volume (Bld) [Entitic vol]8.7 fL9.0-12.7FSumma Health Wadsworth - Rittman Medical CenterPlatelets Auto (Bld) [#/Vol]on 72-17-3755Bxtlmvzgw (Bld) [#/Vol]265 10*3/aQ009-582UpjeatfriDayton Children'S HospitalRBC Auto (Bld) [#/Vol]on 48-70-3611FAI (Bld) [#/Vol]4.02 10*6/uL3.90-5.20[facility] Hospitalerum or plasma anion gap determinationon 29-60-5080Buymw gap [Moles/Vol]9 mmol/L9-18FSumma Health Wadsworth - Rittman Medical CenterBasic metabolic 2000 panelon 46-64-0370Qqsej gap [Moles/Vol]10 mmol/LNormal9-18Fcentral hospital HospitalComment on above:Order Comment: Specimen Type: BLOOD SPECIMENOrdering Facility: [facility] Address:[address] [place], [place] [address]Performed By: #### 09089-3 ####C[facility] LABORATORYCLIA [id number] [place] [address] [place] AMERICACalcium [Mass/Vol]8.7 mg/dLNormal8.5-10.2Fcentral hospital HospitalComment on above:Order Comment: Specimen Type: BLOOD SPECIMENOrdering Facility: [facility] Address:[address] [place], [place] [address]Performed By: #### 48835- 2 ####CORN[facility] LABORATORYCLIA [id number] [place] [address] [place] AMERICAChloride [Moles/Vol]107 mmol/TBqid04-915Jhvjammp HospitalComment on above:Order Comment: Specimen Type: BLOOD SPECIMENOrdering Facility: [facility] Address:[address] [place], [place] [address]Performed By: #### 62992-8 ####CORN[facility] LABORATORYCLIA [id number] [place] [id number] [place] AMERICACO2 [Moles/Vol]25 mmol/KXzrjic20-53Riryfkxq HospitalComment on above:Order Comment: Specimen Type: BLOOD SPECIMENOrdering Facility: [facility] Address:[address] [place], [place] [address]Performed By: #### 60178-0 ####C[facility] LABORATORYCLIA [id number] [place] [address] [place] AMERICACreatinine [Mass/Vol]0.69 mg/dLNormal0.58-0.96Fabaystate noble hospital HospitalComment on above:Order Comment: Specimen Type: BLOOD SPECIMENOrdering Facility: [facility] Address:[address] [place] [address] Performed By: #### 89437-0 ####CORNEL[facility] LABORATORYCLIA [id number] [place] [id number] [place] AMERICACreatinine and Glomerular filtration rate.predicted panel (S/P/Bld)93 mL/min/1.73m???Normal>=60[facility] on above:Order Comment: Specimen Type: BLOOD SPECIMENOrdering Facility: [facility] Address:[address] [place], [place] [address]Result Comment: Estimated Glomerular Filtration Rate (eGFR) is [...] accurately reflect actual GFR. Performed By: #### 66605-8 ####CORNELI[facility] LABORATORYCLIA [id number] [place] [id number] [place] AMERICAGlucose [Mass/Vol]84 mg/dL Mzwdue13-00OkggrcheUMass Memorial Medical Center on above:Order Comment: Specimen Type: BLOOD SPECIMENOrdering Facility: [facility] Address:[address] [place], [place] [address]Result Comment: The [place] Diabetes Association (ADA) provides guidance for cutoff [...] unequivocal hyperglycemia, results should be confirmed by repeattesting. In a patient with classic symptoms of hyperglycemia or hyperglycemic crisis, random plasmaglucose results greater than or equal to 200 mg/dL meet the criteria for diagnosis of diabetes.Reference: Standards of Medical Care in Diabetes 2016, [place] Diabetes Association. Diabetes Care. 2016.39(Suppl 1).Performed By: #### 12351-1 ####VIPINL[facility] LABORATORYCLIA [id number] [place] [address] [place] AMERICAPotassium [Moles/Vol]3.5 mmol/LLow3.7-5.1Fcentral hospital HospitalComment on above:Order Comment: Specimen Type: BLOOD SPECIMENOrdering Facility: [facility] Address:[address] [place], [place] [address]Performed By: #### 97780-1 ####CORNELI[facility] LABORATORYCLIA [id number] [place] [address] [place] AMERICASodium [Moles/Vol]142 mmol/RRyyksy807-974Nrbtftjs HospitalComment on above:Order Comment: Specimen Type: BLOOD SPECIMENOrdering Facility: [facility] Address:[address] [place], [place] [address]Performed By: #### 94906-1 ####CORNELI[facility] LABORATORYCLIA [id number] [place] [address] [place] AMERICAUrea nitrogen [Mass/Vol]11 mg/dLNormal7-21Fabaystate noble hospital HospitalComment on above:Order Comment: Specimen Type: BLOOD SPECIMENOrdering Facility: [facility] Address:[address] [place], [place] [address]Performed By: #### 17131-4 ####CORNELIUS LABORATORYCLIA [id number] [place] [address] [place] AMERICABasophils Auto (Bld) [#/Vol]on 08-42-2013Ozcsycnlt (Bld) [#/Vol]0.04 10*3/uL<0.11[facility] HospitalBasophils/100 WBC Auto (Bld)on 80-15-3786Kfwhtykuk/100 WBC (Bld)0.5 %[facility] HospitalBlood manual differential comment interpretation narrativeon 80-96-8916Lctzxc differential comment Ankush (Bld) [Interp]AutoDayton Children'S HospitalCASE MGT INIT ASSESon 10-97-5033NPMK MGT INIT ASSLakeville Hospital W Auto Differential panel (Bld)on 47-42-9167Hsqbnwgvl (Bld) [#/Vol] 0.04 10*3/uLNormal<0.11[facility] HospitalComment on above:Order Comment: Specimen Type: BLOOD SPECIMENOrdering Facility: [facility] Address:[address] [place], [place] [address]Performed By: #### 70158-8 ####CORNELIUS LABORATORYCLIA [id number] [place] [address] [place] AMERICABasophils/100 WBC (Bld)0.5 %NormalGrandfalls HospitalComment on above: Order Comment: Specimen Type: BLOOD SPECIMENOrdering Facility: [facility] Address:[address] [place], [place] [address]Performed By: #### 19293- 8 ####CORNELI[facility] LABORATORYCLIA [id number] [place] [address] [place] AMERICADifferential cell count method Nom (Bld)AutoNormal [facility] HospitalComment on above:Order Comment: Specimen Type: BLOOD SPECIMENOrdering Facility: [facility] Address:[address] [place], [place] [address]Performed By: #### 07585-0 ####CORNELI[facility] LABORATORYCLIA [id number] [place] [address] [place] Eosinophils (Bld) [#/Vol]0.29 10*3/uLNormal<0.46[facility] HospitalComment on above:Order Comment: Specimen Type: BLOOD SPECIMENOrdering Facility: [facility] Address:[address] [place], [place] [address]Performed By: #### 32867-3 ####CORNELI[facility] LABORATORYCLIA [id number] [place] [address] [place] AMERICAEosinophils/100 WBC (Bld)3.6 %NormalGrandfalls HospitalComment on above:Order Comment: Specimen Type: BLOOD SPECIMENOrdering Facility: [facility] Address:[address] [place], [place] [address]Performed By: #### 11054-9 ####CORNELIUS LABORATORYCLIA [id number] [place] [address] [place] AMERICAErythrocyte distribution width (RBC) [Ratio]15.0 %Slvran10.5-15.0Fabaystate noble hospital HospitalComment on above:Order Comment: Specimen Type: BLOOD SPECIMENOrdering Facility: [facility] Address:[address] [place], [place] [address]Performed By: #### 01381-2 ####CORNEL[facility] LABORATORYCLIA [id number] [place] [id number] [place] AMERICAHematocrit (Bld) [Volume fraction]30.9 %Low 36.0-46.0Fabaystate noble hospital HospitalComment on above:Order Comment: Specimen Type: BLOOD SPECIMENOrdering Facility: [facility] Address:[address] [place], [place] [address]Performed By: #### 41809-4 ####CORNEL[facility] LABORATORYCLIA [id number] [place] [id number] [place] Hemoglobin (Bld) [Mass/Vol]10.2 g/dLLow11.5-15.5Fcentral hospital HospitalComment on above:Order Comment: Specimen Type: BLOOD SPECIMENOrdering Facility: [facility] Address:[address] [place], [place] [address]Performed By: #### 92480-2 ####CORNELIUS LABORATORYCLIA [id number] [place] [address] [place] [facility] MEDICAL CENTERImmature granulocytes (Bld) [#/Vol]0.10 10*3/uL High<0.10[facility] HospitalComment on above:Order Comment: Specimen Type: BLOOD SPECIMENOrdering Facility: [facility] Address:[address] [place], [place] [address]Performed By: #### 00165-1 ####CORNELIUS LABORATORYCLIA [id number] [place] [address] [place] Immature granulocytes/100 WBC (Bld)1.2 %NormalFabaystate noble hospital HospitalComment on above: Order Comment: Specimen Type: BLOOD SPECIMENOrdering Facility: [facility] Address:[address] [place], [place] [address]Performed By: #### 39767- 8 ####CORNELIUS LABORATORYCLIA [id number] [place] [id number] [place] [facility] HOSPITALLymphocytes (Bld) [#/Vol]0.97 10*3/uLLow1.00-4.00 [facility] HospitalComment on above:Order Comment: Specimen Type: BLOOD SPECIMENOrdering Facility: [facility] Address:[address] [place], [place] [address]Performed By: #### 14934-5 ####CORNELIUS LABORATORYCLIA [id number] [place] [address] [place] Lymphocytes/100 WBC (Bld)12.0 %NormalGrandfalls HospitalComment on above:Order Comment: Specimen Type: BLOOD SPECIMENOrdering Facility: [facility] Address:[address] [place], [place] [address]Performed By: #### 90191- 8 ####CORNELI[facility] LABORATORYCLIA [id number] [address] (RBC) [Entitic mass]29.6 ocKspihf51.0-34.0[facility] HospitalComment on above:Order Comment: Specimen Type: BLOOD SPECIMENOrdering Facility: [facility] Address:[address] [place], [place] [address]Performed By: #### 16760-1 ####CORNELIUS LABORATORYCLIA [id number] [place] [id number] [facility] (RBC) [Mass/Vol] 33.0 g/oJKiovca92.5-36.0[facility] HospitalComment on above:Order Comment: Specimen Type: BLOOD SPECIMENOrdering Facility: [facility] Address:[address] [place], [place] [address]Performed By: #### 97146-0 ####CORNELIUS LABORATORYCLIA [id number] [address] (RBC) [Entitic vol]89.6 gPXytenv76.0-100.0Fabaystate noble hospital HospitalComment on above:Order Comment: Specimen Type: BLOOD SPECIMENOrdering Facility: [facility] Address:[address] [place], [place] [address]Performed By: #### 46353-8 ####CORNELIUS LABORATORYCLIA [id number] [place] [id number] [place] AMERICAMonocytes (Bld) [#/Vol] 0.81 10*3/uLNormal<0.87Grandfalls HospitalComment on above:Order Comment: Specimen Type: BLOOD SPECIMENOrdering Facility: [facility] Address:[address] [place], [place] [address]Performed By: #### 13236-5 ####[facility] LABORATORYCLIA [id number] [place] [id number] [place] AMERICAMonocytes/100 WBC (Bld)10.0 %NormalGrandfalls HospitalComment on above: Order Comment: Specimen Type: BLOOD SPECIMENOrdering Facility: [facility] Address:[address] [place], [place] [address]Performed By: #### [id number]- 8 ####[facility] LABORATORYCLIA [id number] [place] [id number] [place] AMERICANeutrophils (Bld) [#/Vol]5.88 10*3/uLNormal1.45-7.50 [facility]falls HospitalComment on above:Order Comment: Specimen Type: BLOOD SPECIMENOrdering Facility: [facility] Address:[address] [place], [place] [address]Performed By: #### [id number] ####CORN[facility] LABORATORYCLIA [id number] [place] [id number] [place] Neutrophils/100 WBC (Bld)72.7 %NormalGrandfalls HospitalComment on above:Order Comment: Specimen Type: BLOOD SPECIMENOrdering Facility: [facility] Address:[address] [place], [place] [address]Performed By: #### 68869- 8 ####C[facility] LABORATORYCLIA [id number] [place] [id number] [place] OF AMERICANucleated RBC (Bld) [#/Vol]10*3/uLNormal<0.01Fabaystate noble hospital HospitalComment on above:Order Comment: Specimen Type: BLOOD SPECIMENOrdering Facility: [facility] Address:[address] [place], [place] [address]Performed By: #### 56803-1 ####CORNELIUS LABORATORYCLIA [id number] [place] [id number] [place] AMERICANucleated RBC/100 WBC (Bld) [Ratio]0.0 /100 WBCNormalFabaystate noble hospital HospitalComment on above:Order Comment: Specimen Type: BLOOD SPECIMENOrdering Facility: [facility] Address:[address] [place], [place] [address]Performed By: #### 82109-3 ####CORNELIUS LABORATORYCLIA [id number] [place] [address] [facility]ALTH OF AMERICAPlatelet mean volume (Bld) [Entitic vol]8.9 fLLow 9.0-12.7Fcentral hospital HospitalComment on above:Order Comment: Specimen Type: BLOOD SPECIMENOrdering Facility: [facility] Address:[address] [place], [place] [address]Performed By: #### 42058-5 ####CORNELIUS LABORATORYCLIA [id number] [place] [id number] [place] Platelets (Bld) [#/Vol]230 10*3/mCDkpqqu453-529Doafaagj HospitalComment on above:Order Comment: Specimen Type: BLOOD SPECIMENOrdering Facility: [facility] Address:[address] [place], [place] [address]Performed By: #### 14345-7 ####CORNELIUS LABORATORYCLIA [id number] [place] [id number] [place] AMERICARBC (Bld) [#/Vol]3.45 10*6/uLLow3.90-5.20Fabaystate noble hospital HospitalComment on above:Order Comment: Specimen Type: BLOOD SPECIMENOrdering Facility: [facility] Address:[address] [place], [place] [address]Performed By: #### 79615-8 ####CORNELIUS LABORATORYCLIA [id number] [place] [address] [place] AMERICAWBC (Bld) [#/Vol]8.09 10*3/uLNormal3.70-11.00[facility] CenterComment on above:Order Comment: Specimen Type: BLOOD SPECIMENOrdering Facility: [facility] Address:[address] [place], [place] [address]Performed By: #### 22964-8 ####CORNELIUS LABORATORYCLIA [id number] [place] [id number] [place] OF AMERICACONSULTon 80-05-4787NFJFKKIJzgbquMbdcfkve HospitalEosinophils/100 WBC Auto (Bld)on 50-78-8452Atxxyqtlciv/100 WBC (Bld)3.6 %[facility]'S HospitalErythrocyte distribution width Auto (RBC) [Ratio]on 99-08-9446Frgrakxkudn distribution width (RBC) [Ratio]15.0 %11.5-15.0[facility] Hematocrit Auto (Bld) [Volume fraction]on 69-97-7738Sqjjmfhdte (Bld) [Volume fraction]30.9 %36.0-46.0[facility] HospitalHemoglobin [Mass/volume] in Bloodon 18-54-2151Ojrlwjulfn (Bld) [Mass/Vol]10.2 g/dL11.5-15.5 [facility] HospitalLaboratory - Chemistry and Chemistry - challengeon 61-68-9217Mfqxryj [Mass/Vol]8.7 mg/dL8.5-10.2FSumma Health Wadsworth - Rittman Medical CenterChloride [Moles/Vol]107 mmol/J86-249YwjpkjuzvDayton Children'S HospitalCO2 [Moles/Vol]25 mmol/O94-44LnjuybpvaDayton Children'S HospitalCreatinine [Mass/Vol]0.69 mg/dL0.58-0.96[facility] HospitalGlucose [Mass/Vol] 84 mg/jJ15-33GmjpzetalDayton Children'S HospitalComment on above:The [place] Diabetes Association (ADA) provides guidance for cutoff [...] hyperglycemia or hyperglycemic crisis, random plasma glucose resultsgreater than or equal to 200 mg/dL meet the criteria for diagnosis of diabetes.Reference: [employer] in Diabetes 2016, Scottish Diabetes Association. Diabetes Care. 2016.39(Suppl 1). Potassium [Moles/Vol]3.5 mmol/L3.7-5.1FSelect Medical Specialty Hospital - Cantonodium [Moles/Vol]142 mmol/E274-596QorucoluyDayton Children'S HospitalUrea nitrogen [Mass/Vol]11 mg/dL7-21[facility] HospitalLaboratory - Hematology and Cell countson 36-26-1425Krfhqfkjyrn (Bld) [#/Vol]0.29 10*3/uL<0.46[facility] HospitalImmature granulocytes (Bld) [#/Vol]0.10 10*3/uL<0.10 [facility] HospitalImhiture granulocytes/100 WBC (Bld)1.2 % [facility] HospitalLeukocytes [#/volume] corrected for nucleated erythrocytes in Blood by Automated counon 62-92-1306OFE corrected for nucl RBC Auto (Bld) [#/Vol]8.09 k/uL3.70-11.00[facility] Lymphocytes Auto (Bld) [#/Vol]on 11-76-1332Dkkttcxkrgl (Bld) [#/Vol]0.97 10*3/uL 1.00-4.00[facility] HospitalLymphocytes/100 WBC Auto (Bld)on 18-55-1892Hwaudsgicgn/100 WBC (Bld)12.0 %[facility] HospitalH Auto (RBC) [Entitic mass]on 58-27-9770PIY (RBC) [Entitic mass]29.6 pg26.0-34.0 [facility] HospitalMCHC Auto (RBC) [Mass/Vol]on 82-05-8838HRQJ (RBC) [Mass/Vol]33.0 g/dL30.5-36.0[facility] HospitalMCV Auto (RBC) [Entitic vol]on 24-79-7730JBM (RBC) [Entitic vol]89.6 fL80.0-100.0 [facility] HospitalMonocytes Auto (Bld) [#/Vol]on 08-26-2023 Monocytes (Bld) [#/Vol]0.81 10*3/uL<0.87[facility] Monocytes/100 WBC Auto (Bld)on 67-93-2717Safhzsmuy/100 WBC (Bld)10.0 %[facility]S HospitalNeutrophils Auto (Bld) [#/Vol]on 81-58-7046Ruwxzzxywxv (Bld) [#/Vol]5.88 10*3/uL1.45-7.50[facility] Neutrophils/100 WBC Auto (Bld)on 05-73-8304Zxovyzdwiuw/100 WBC (Bld)72.7 % [facility] HospitalNo Panel Informationon 37-46-1265Vcsanmgqp GFR (CKD-EPI)93 mL/min/1.73m???>=60[facility]S HospitalComment on above:Estimated Glomerular Filtration Rate (eGFR) is calculated using the 2020 CKD-EPI creatinine equation. This equation utilizes serum creatinine, sex, and age as parameters. The creatinine assay has traceable calibration to isotope dilution-mass spectrometry. Refer to KDIGO guidelines for clinical inte rpretation. In patients with unstable renal function, e.g. those with acute kidney injury, the eGFRmay not accurately reflect actual GFR.Nucleated RBC Auto (Bld) [#/Vol]on 52-29-9653Cwqvlasye RBC (Bld) [#/Vol]10*3/uL<0.01[facility] HospitalNucleated erythrocytes [Presence] in Blood by Automated counton 57-55-9493Sspehbmab RBC Auto Ql (Bld)0.0 /100{WBC}[facility] HospitalPlatelet mean volume Auto (Bld) [Entitic vol]on 94-74-1073Seayyrlf mean volume (Bld) [Entitic vol]8.9 fL9.0-12.7FSumma Health Wadsworth - Rittman [facility] Center Platelets Auto (Bld) [#/Vol]on 18-93-9541Thkwedfzr (Bld) [#/Vol]230 10*3/uL 150-400Day[facility]'S HospitalRBC Auto (Bld) [#/Vol]on 08-02-9973IWX (Bld) [#/Vol]3.45 10*6/uL3.90-5.20[facility] Hospitalerum or plasma anion gap determinationon 40-25-6292Wblaq gap [Moles/Vol]10 mmol/L9-18 [facility] HospitalTHERAPY NTon 88-81-1979OKAJLVL NTNoLongwood Hospital HospitalTHERAPY NTNormGoddard Memorial Hospital HospitalANES POSTPROC EVALon 28-78-1932ILZB POSTPROC EVALNoLongwood Hospital HospitalANES PRE-OPon 18-31-9425XADO PRE-OPNormal [facility] CenterBRIEF OP NOTon 55-25-4011CWNZY OP [facility] NURSING PROGon 40-32-8524QIKONRM PROGNormalGrandfalls HospitalNURSING PROGNormal Grandfalls HospitalOPERATIVE NOon 40-73-5094FKNTBCNHN NONormalHolyoke Medical Center SURGICAL PATHOLOGYon 96-17-4117MMOFACK REPORT DETAILSomerville Hospital Comment on above:Order Comment: Specimen Type: TISSUE SPECIMENOrdering Facility: [facility] Address: [address] [place], [place] [address]Result Comment: Amended: 09/13/2023 3:21 PMThis report is being amended to reflect a change in the Synoptic Report and Gross Description armijo. The changes are as follows: changed to tumor location inthe Synoptic Report from Cannot be determined to Rectum / Entirely below anterior peritoneal reflection and added The ulcer is located entirely below the anterior peritoneal reflection to the Gross Description.Dr. Singer was notified of this change by e-mail on 09/13/2023.JEL 09/13/2023Edited results: Previously reported on 08/31/2023 at 6:21 PM EST.Performed By: #### S ####CORNELIUS LABORATORYCLIA [id number] [address] LABCLIA [id number] [address] FOR ADDITIONAL BIOMARKERS/MOLECULAR STUDIESNo evidence of residual invasive adenocarcinomaNoLongwood Hospital HospitalComment on above:Order Comment: Specimen Type: TISSUE SPECIMENOrdering Facility: [facility] Address: [address] [place], [place] [address]Performed By: #### S ####CORNELIUS LABORATORYCLIA [id number] [place] [id number] [facility] LABCLIA [id number] [address] OF [facility] CENTERCASE REPORTNoLongwood Hospital HospitalComment on above:Order Comment: Specimen Type: TISSUE SPECIMENOrdering Facility: [facility] Address: [address] [place], [place] [address]Result Comment: Surgical Pathology Report Case: [id number] Provider: Laisha Singer MD Collected: 08/25/2023 11:42 AMOrdering Location: [facility] Received: 08/25/2023 12:13 PM Operating RoomPathologist: Oscar Marshall MDSpecimens: A) - COLON RESECTION, low anterior resection B) - MARGIN GI, distal marginPerformed By: #### S ####CORNELIUS LABORATORYCLIA [id number] [address] LABCLIA [id number] [address]ETCLINICAL HISTORYNoLongwood Hospital HospitalComment on above:Order Comment: Specimen Type: TISSUE SPECIMENOrdering Facility: [facility] Address: [address] [place], [place] [id number] Comment: Pre-op diagnosis:Rectal cancer (HCC) [C20]Performed By: #### S ####CORNELIUS LABORATORYCLIA [id number] [address] LABCLIA [id number] [address] STATES OF [facility] FINAL DIAGNOSISNormalFairview HospitalComment on above:Order Comment: Specimen Type: TISSUE SPECIMENOrdering Facility: [facility] Address: [address] [place], [place] [address]Result Comment: A. Sigmoid colon and rectum, resection:- No evidence of residual invasive adenocarcinoma (see synoptic report).- Fifteen lymph nodes, negative for malignancy (0/15).B. Additional distal margin, excision:- Segment of rectum with no diagnostic abnormality.JEL 4Amendment electronically signed by Oscar Marshall MD on 09/13/2023 at 3:24 PM Performed By: #### S ####ELKINS LABORATORYCLIA [id number] [place] [id number] [facility] LABCLIA [id number] [address] Bailey StreetComment on above:Order Comment: Specimen Type: TISSUE SPECIMENOrdering Facility: [facility] Address: [address] [place], [place] [id number] Comment: Diagnostic interpretation performed at [facility], [address] [place] [address] CLIA# [id number] Director: Dheeraj Suarez M.D.Performed By: #### S ####ELKINS LABORATORYIA [id number] [place] [id number] [facility] LABCLIA [id number] [place] [id number] [facility] HospitalComment on above:Order Comment: Specimen Type: TISSUE SPECIMENOrdering Facility: [facility] Address: [address] [place], [place] [id number] Comment: A. COLON RESECTIONReceived in formalin designated low anterior resection [...] located 1.2 cm from the distal margin, 12cm from the proximal margin, 2.4 cm from the nearest posterior circumferential (radial) margin, and12.5 cm from the mesenteric margin. The ulcer is located entirely below the anterior peritoneal reflection. Sectioning through the ulcer reveals that it does not extend beyond the muscularis propria. The remaining bowel mucosa is unremarkable showing normal mucosal folds with a wall thickness of 0.9 cm. Knitter Mechanic sections are submitted as follows: A1 ulcer with distal margin perpendicular (inked blue), A2 proximal margin perpendicular (inked orange), A3-A4 ulcer with posterior circumferential (radial) margin, bisected, A5-A6 ulcer with posterior circumferential (radial) margin, bisected,A7-A8 ulcer with posterior circumferential (radial) margin, bisected (A3-A8 submitted in sequentialorder from distal to proximal), A9 ulcer with [...] 28, 2023 1:59 PMGross examination performed at [facility], [address] [place], [place] [address]F. MARGIN GIReceived in formalin designated distal margin is a segment of bowel that measures 0.5 cm in length and 1.2 cm in diameter. The specimen cannot be inked due to the size of the specimen. The specimen is serially sectioned and entirely submitted in one cassette.WE August 25, 2023 1:52 PMGross examination performed at [facility], [address] [place], [place] [address]Ewfihuazd results: Previously reported on 08/31/2023 at 6:21 PM EST.Performed By: #### S ####CORNELIUS LABORATORYCLIA [id number] [place] [address] [facility] LABCLIA [id number] [place] [id number] [place] [address] [facility] CENTERSYNOPTIC REPORTNormal Grandfalls HospitalComment on above:Order Comment: Specimen Type: TISSUE SPECIMENOrdering Facility: [facility] Address: [address] [place] [id number] Comment: COLON AND RECTUM: Resection, Including Transanal Disk Excision of Rectal NeoplasmsCOLON AND RECTUM: RESECTION - All Ogngyopoe3ft Edition - Protocol posted: 12/29/2021PECIMEN Procedure: Low [...] pathology report. TNM Descriptors: y (post-treatment) pT Category:pT0 pN Category: hY4Beztamrez By: #### S ####ELKINS LABORATORYCLIA [id number] [place] [address] [facility] LABCLIA [id number] [address] [address] [facility]ICAL CENTERBasophils Auto (Bld) [#/Vol] Ordered By: David Reyes on 08-48-0688Pmghdmaxj (Bld) [#/Vol]0.0 10*3/uL 0.0-0.2FSumma Health Wadsworth - Rittman Medical CenterBasophils/100 WBC Auto (Bld)Ordered By: David Reyes on 09-98-3281Ewdcycqtn/100 WBC (Bld)1.0 %.[facility]'S HospitalCalcium [Mass/volume] in Serum or PlasmaOrdered By: David Reyes on 16-40-6048Xxjbvag [Mass/Vol]8.6 mg/dL8.6-10.3FSumma Health Wadsworth - Rittman Medical CenterCarbon dioxide, total [Moles/volume] in Serum or PlasmaOrdered By: David Reyes on 69-63-8915LA6 [Moles/Vol]24.5 mmol/L21.0-31.0[facility]S HospitalChloride [Moles/volume] in Serum or PlasmaOrdered By: David Reyes on 09-81-2422Gxourwch [Moles/Vol]109 mmol/C85-159PpmtyfiixDayton Children'S HospitalCreatinine [Mass/volume] in Serum or PlasmaOrdered By: David Reyes on 90-71-2337Kryiqczwlz [Mass/Vol]0.74 mg/dL0.60-1.20[facility]'S HospitalEosinophils Auto (Bld) [#/Vol]Ordered By: David Reyes on 96-15-6199Jwvcwhcsnlc (Bld) [#/Vol]0.2 10*3/uL0.0-0.45Day[facility]'S HospitalEosinophils/100 WBC Auto (Bld)Ordered By: David Reyes on 06-26-2023 Eosinophils/100 WBC (Bld)4.3 %.[facility] Children'S HospitalErythrocyte distribution width Auto (RBC) [Ratio]Ordered By: David Reyes on 06-26-2023 Erythrocyte distribution width (RBC) [Ratio]15.0 %11.9-15.3FSumma Health Wadsworth - Rittman Medical CenterGlucose [Mass/volume] in Serum or PlasmaOrdered By: David Reyes on 51-74-5424Sdjxesl [Mass/Vol]91 mg/fN30-753RhtipfjfmDayton Children'S Hospital Comment on above:ADA recommended reference rangeRandom Glucose Reference Range is dependent on time and content of last meal. Glucose of more than 200 mg/dL in a nonstressed, ambulatory subject supports the diagnosisof Diabetes Mellitus. Hematocrit Auto (Bld) [Volume fraction]Ordered By: David Reyes on 06-26-2023 Hematocrit (Bld) [Volume fraction]33.0 %34.0-46.4FSumma Health Wadsworth - Rittman Medical CenterHemoglobin [Mass/volume] in BloodOrdered By: David Reyes on 06-26-2023 Hemoglobin (Bld) [Mass/Vol]11.1 g/dL11.8-15.4FSumma Health Wadsworth - Rittman [facility] Center Leukocytes [#/volume] corrected for nucleated erythrocytes in Blood by Automated counOrdered By: David Reyes on 80-77-1136XPX corrected for nucl RBC Auto (Bld) [#/Vol]4.3 10*3/uL3.8-11.6FSumma Health Wadsworth - Rittman Medical CenterLymphocytes Auto (Bld) [#/Vol]Ordered By: David Reyes on 40-62-4090Czjpnrkylhf (Bld) [#/Vol]0.9 10*3/uL1.00-4.8[facility]'S HospitalLymphocytes/100 WBC Auto (Bld)Ordered By: David Reyes on 73-20-9054Bhtdilrjbkm/100 WBC (Bld)21.8 %.[facility] HospitalH Auto (RBC) [Entitic mass]Ordered By: David Reyes on 65-32-8314XXL (RBC) [Entitic mass]29.7 pg24.7-34.3FBethesda North HospitalHC Auto (RBC) [Mass/Vol]Ordered By: David Reyes on 83-12-8414YRDL (RBC) [Mass/Vol]33.5 g/dL32.0-35.0[facility]'S HospitalMCV Auto (RBC) [Entitic vol]Ordered By: David Reyes on 88-23-2946QMM (RBC) [Entitic vol]88.6 gK20-459DlayqrjulDayton Children'S HospitalMonocytes Auto (Bld) [#/Vol]Ordered By: David Reyes on 82-68-3508Pesutghth (Bld) [#/Vol]0.4 10*3/uL0.0-0.8[facility]S HospitalMonocytes/100 WBC Auto (Bld) Ordered By: David Reyes on 72-28-3830Icotvnhnu/100 WBC (Bld)8.2 %.[facility]'S HospitalNeutrophils Auto (Bld) [#/Vol]Ordered By: David Reyes on 77-87-4624Rsgtbickhkp (Bld) [#/Vol]2.8 10*3/uL1.8-7.7FSumma Health Wadsworth - Rittman Medical CenterNeutrophils/100 WBC Auto (Bld)Ordered By: David Reyes on 84-35-9679Gdhsvqtamyk/100 WBC (Bld)64.7 %.[facility]'S HospitalNo Panel InformationOrdered By: David Reyes on 55-24-7748Gnszbgwla GFR (CKD-EPI) > 60.0 mL/MinDayton Children'S HospitalPharmacy Creatinine Clearance (Chem57.31Day[facility] Children'S HospitalNucleated erythrocytes [Presence] in Blood by Automated countOrdered By: David Reyes on 57-30-8988Falwusjhq RBC Auto Ql (Bld)0.0 /100{WBC}0-0.5FSumma Health Wadsworth - Rittman Medical CenterPlatelet mean volume Auto (Bld) [Entitic vol]Ordered By: David Reyes on 11-02-8430Jjhgdesq mean volume (Bld) [Entitic vol]6.5 fL6.3-10.7FSumma Health Wadsworth - Rittman [facility] Center Platelets Auto (Bld) [#/Vol]Ordered By: David Reyes on 99-35-7548Ucrauoxkx (Bld) [#/Vol]306 10*3/mN664-065YlusdfpppDayton Children'S HospitalPotassium [Moles/volume] in Serum or PlasmaOrdered By: David Reyes on 06-26-2023 Potassium [Moles/Vol]4.1 mmol/L3.5-5.1FSumma Health Wadsworth - Rittman Medical CenterRBC Auto (Bld) [#/Vol]Ordered By: David Reyes on 14-72-2116MPC (Bld) [#/Vol]3.73 10*6/uL3.60-5.00[facility] Hospitalerum or plasma anion gap determinationOrdered By: David Reyes on 41-36-5385Izvor gap [Moles/Vol]11.6 mmol/L6.0-15.0[facility] Hospitalodium [Moles/volume] in Serum or PlasmaOrdered By: David Reyes on 13-17-4714Fssudj [Moles/Vol]141 mmol/L 136-145Day[facility]'S HospitalUrea nitrogen [Mass/volume] in Serum or PlasmaOrdered By: David Reyes on 45-91-8564Fffu nitrogen [Mass/Vol]21 mg/dL 7-25Day[facility]'S HospitalWBC Auto (Bld) [#/Vol]Ordered By: David Reyes on 03-73-3401JVH (Bld) [#/Vol]4.3 10*3/uL3.8-11.6FSumma Health Wadsworth - Rittman Medical CenterMRI RECTUM WO/W IVCONon 63-60-7813Aaelvbrzx ClinicCNPNon 29-71-6879AVJDCktggnHsstvgzo [facility] HospitalOIDOSCOPYon 38-49-6640Fwnvgouez Clinic Creatine kinase [Enzymatic activity/volume] in Serum or PlasmaOrdered By: Jordan Hare on 60-10-3480WQ [Catalytic activity/Vol]36 U/Z39-779CjpznzpbaDayton Children'S HospitalTroponin I.cardiac [Mass/volume] in Serum or Plasma by Detection limit <= 0.01 ng/Ordered By: Jordan Hare on 79-85-1796Icxqmlgd I.cardiac DL <= 0.01 ng/mL [Mass/Vol]5.8 pg/mL0.0-15.0[facility]S HospitalActivated partial thromboplastin time (aPTT) in platelet poor plasma by coagulation aOrdered By: Gregory Rangel on 66-29-1564aQXR Coag (PPP) [Time]27.9 s 25.1-36.5Fire[facility] Regional Medical CenterComment on above:A hematocrit value greater than 55% may lead to inaccurate results in coagulation testing. Patients having hematocrit values >55% require a special collection tube for coagulation studies. Please contact the laboratory at [phone] for redraw instructions. Alanine aminotransferase [Enzymatic activity/volume] in Serum or PlasmaOrdered By: Gregory Rangel on 87-78-6518BIZ [Catalytic activity/Vol]18 U/L7-52Day[facility]S HospitalAlbumin [Mass/volume] in Serum or Plasma by Bromocresol green (BCG) dye binding methoOrdered By: Gregory Rangel on 01-25-8673Vzubjoq BCG dye [Mass/Vol]4.5 g/dL3.5-5.7FSumma Health Wadsworth - Rittman Medical CenterAlkaline phosphatase [Enzymatic activity/volume] in Serum or PlasmaOrdered By: Gregory Rangel on 10-41-1005HVZ [Catalytic activity/Vol]50 U/V44-308RhvamgeyrDayton Children'S HospitalAspartate aminotransferase [Enzymatic activity/volume] in Serum or PlasmaOrdered By: Gregory Rangel on 79-84-6723JSR [Catalytic activity/Vol]16 U/L 13-39Day[facility]S HospitalBasophils Auto (Bld) [#/Vol]Ordered By: Gregory Rangel on 31-25-1272Uwmyilgwt (Bld) [#/Vol]0.0 10*3/uL0.0-0.2FSumma Health Wadsworth - Rittman Medical CenterBasophils/100 WBC Auto (Bld)Ordered By: Gregory Rangel 25-72-8763Pmtuchrxf/100 WBC (Bld)0.7 %.[facility] Bilirubin.direct [Mass/volume] in Serum or PlasmaOrdered By: Gregory Rangel 42-07-1587Eybhxbpwp.direct [Mass/Vol]0.10 mg/dL0.03-0.18FSumma Health Wadsworth - Rittman Medical CenterBilirubin.total [Mass/volume] in Serum or PlasmaOrdered By: Gregory Rangel 07-57-7571Teczkvsrc [Mass/Vol]0.5 mg/dL0.3-1.0[facility]S HospitalCalcium [Mass/volume] in Serum or PlasmaOrdered By: Gregory Rangel 81-09-6858Gicfade [Mass/Vol]9.4 mg/dL8.6-10.3FSumma Health Wadsworth - Rittman Medical CenterCarbon dioxide, total [Moles/volume] in Serum or PlasmaOrdered By: Gregory Rangel on 54-80-9979TP7 [Moles/Vol]23.1 mmol/L21.0-31.0[facility]S HospitalChloride [Moles/volume] in Serum or PlasmaOrdered By: Gregory Rangel on 55-72-5868Gvwyfyiy [Moles/Vol]102 mmol/H52-064LayqeziwuDayton Children'S Hospital Creatine kinase [Enzymatic activity/volume] in Serum or PlasmaOrdered By: Jordan Hare on 58-01-8328YQ [Catalytic activity/Vol]43 U/N15-284HkxelasznDayton Children'S HospitalCreatinine [Mass/volume] in Serum or PlasmaOrdered By: Gregory Rangel on 78-35-9521Khfksjdhnm [Mass/Vol]0.74 mg/dL0.60-1.20[facility]'S HospitalEosinophils Auto (Bld) [#/Vol]Ordered By: Gregory Rangel on 53-11-4607Ppvujjdfsks (Bld) [#/Vol]0.1 10*3/uL0.0-0.45Day[facility]'S HospitalEosinophils/100 WBC Auto (Bld)Ordered By: Gregory Rangel on 09-76-6093Ozmaeaiedyu/100 WBC (Bld)1.1 %.[facility] Erythrocyte distribution width Auto (RBC) [Ratio]Ordered By: Gregory Rangel on 09-10-4383Uqucrmrwzbl distribution width (RBC) [Ratio]15.0 %11.9-15.3FSumma Health Wadsworth - Rittman Medical CenterGlobulin Calc (S) [Mass/Vol]Ordered By: Gregory Rangel on 36-85-6915Gricwjok (S) [Mass/Vol]2.5 g/dLDayton Children'S Hospital Glucose [Mass/volume] in Serum or PlasmaOrdered By: Gregory Rangel on 04-05-2023 Glucose [Mass/Vol]109 mg/iU07-940NtzkugnroDayton Children'S HospitalComment on above:ADA recommended reference rangeRandom Glucose Reference Range is dependent on time and content of last meal. Glucose of more than 200 mg/dL in a nonstressed, ambulatory subject supports the diagnosisof Diabetes Mellitus. Hematocrit Auto (Bld) [Volume fraction]Ordered By: Gregory Rangel on 04-05-2023 Hematocrit (Bld) [Volume fraction]35.7 %34.0-46.4FSumma Health Wadsworth - Rittman Medical CenterHemoglobin [Mass/volume] in BloodOrdered By: Gregory Rangel on 04-05-2023 Hemoglobin (Bld) [Mass/Vol]11.7 g/dL11.8-15.4FSumma Health Wadsworth - [facility] Center INR in Platelet poor plasma by Coagulation assayOrdered By: Gregory Rangel on 81-67-4215RCT Coag (PPP) [Relative time]1.0 {INR}[facility]'S HospitalComment on above:INR Therapeutic Range A) Pre- and Peroperative OAT started two weeks before surgery. NOT HIP SURGERY: 1.5 - 2.5 HIP SURGERY: 2 - 3B) Primary and secondary prevention of venous THROMBOSIS: 2 - 3C) Active venous thrombosis, pulmonary embolismand prevention of recurrent venous thrombosis: 2 - 3D) Prevention of arterial thromboembolismincluding patients with mechanical heart valves: 3 - 4.5Leukocytes [#/volume] corrected for nucleated erythrocytes in Blood by Automated counOrdered By: Gregory Rangel on [id number] corrected for nucl RBC Auto (Bld) [#/Vol]6.6 10*3/uL3.8-11.6FSumma Health Wadsworth - Rittman Medical CenterLipase [Enzymatic activity/volume] in Serum or PlasmaOrdered By: Gregory Rangel on [phone] [Catalytic activity/Vol]13.0 U/L11.0-82.0[facility] HospitalLymphocytes Auto (Bld) [#/Vol]Ordered By: Gregory Rangel on 77-81-9044Feggkzonujy (Bld) [#/Vol]2.6 10*3/uL1.00-4.8[facility]'S HospitalLymphocytes/100 WBC Auto (Bld)Ordered By: Gregory Rangel on 01-26-8282Fnuxwexkcts/100 WBC (Bld)38.8 %.[facility] Auto (RBC) [Entitic mass]Ordered By: Gregory Rangel on 35-98-7866XMP (RBC) [Entitic mass]27.2 pg24.7-34.3FSumma Health Wadsworth - Rittman Medical CenterMCHC Auto (RBC) [Mass/Vol]Ordered By: Gregory Rangel on 88-64-3925DZHG (RBC) [Mass/Vol]32.7 g/dL 32.0-35.0[facility]S HospitalMCV Auto (RBC) [Entitic vol]Ordered By: Gregory Rangel on 20-80-8463KRX (RBC) [Entitic vol]83.4 iO53-500MqncbicnuDayton Children'S HospitalMonocyte distribution width [Entitic volume] in Blood by AutomatedOrdered By: Gregory Rangel on 81-86-3486Fdfnqwtc distribution width Auto (Bld) [Entitic vol]19.16 %0.00-20.00[facility]S HospitalMonocytes Auto (Bld) [#/Vol]Ordered By: Gregory Rangel on 87-28-7649Zrsdfytdf (Bld) [#/Vol] 0.5 10*3/uL0.0-0.8[facility] HospitalMonocytes/100 WBC Auto (Bld) Ordered By: Gregory Rangel on 64-92-2531Gucqlgwbr/100 WBC (Bld)7.5 %.[facility]S HospitalNatriuretic peptide B [Mass/Vol]Ordered By: Gregory Rangel on 73-45-5855Zzdbzaciefc peptide B (Bld) [Mass/Vol]158.0 pg/mL5-100[facility]S HospitalNeutrophils Auto (Bld) [#/Vol]Ordered By: Gregory Rangel on 98-78-5262Xpxsnnikwjj (Bld) [#/Vol]3.4 10*3/uL1.8-7.7FSumma Health Wadsworth - Rittman Medical CenterNeutrophils/100 WBC Auto (Bld)Ordered By: Gregory Rangel on 04-05-2023 Neutrophils/100 WBC (Bld)51.9 %.[facility]S HospitalNo Panel InformationOrdered By: Gregory Rangel on 47-94-6531Gmqmlovqz GFR (CKD-EPI)> 60.0 mL/MinDayton Children'S HospitalPharmacy Creatinine Clearance (Chem54.90 [facility]'S HospitalNucleated erythrocytes [Presence] in Blood by Automated countOrdered By: Gregory Rangel on 61-38-8327Urnhntowz RBC Auto Ql (Bld) 0.1 /100{WBC}0-0.5FSumma Health Wadsworth - Rittman Medical CenterPlatelet mean volume Auto (Bld) [Entitic vol]Ordered By: Gregory Rangel on 53-35-4642Zjywicno mean volume (Bld) [Entitic vol]6.6 fL6.3-10.7FSumma Health Wadsworth - Rittman Medical CenterPlatelets Auto (Bld) [#/Vol]Ordered By: Gregory Rangel on 34-75-9141Fmfgmjhlw (Bld) [#/Vol]312 10*3/rA762-507GnebatrynDayton Children'S HospitalPotassium [Moles/volume] in Serum or PlasmaOrdered By: Gregory Rangel on 80-83-9429Hmikprwgg [Moles/Vol]3.5 mmol/L 3.5-5.1FSumma Health Wadsworth - Rittman Medical CenterProtein [Mass/volume] in Serum or Plasma Ordered By: Gregory Rangel on 71-72-2752Oewzszq [Mass/Vol]7.0 g/dL6.4-8.9[facility]S HospitalProthrombin time (PT)Ordered By: Gregory Rangel on 70-54-2958YY Coag (PPP) [Time]11.9 s9.0-12.9[facility] Comment on above:A hematocrit value greater than 55% may lead to inaccurate results in coagulation testing. Patientshaving hematocrit values >55% require a special collection tube for coagulation studies. Please contact the laboratory at [phone] for redraw instructions.RBC Auto (Bld) [#/Vol]Ordered By: Gregory Rangel on 75-90-9116MLB (Bld) [#/Vol]4.28 10*6/uL3.60-5.00[facility] Hospitalerum or plasma albumin/globulin mass ratioOrdered By: Gregory Rangel on 26-89-9113Mtluevm/Globulin [Mass ratio]1.8 {ratio}[facility] Hospitalerum or plasma anion gap determinationOrdered By: Gregory Rangel on 62-51-7973Jshst gap [Moles/Vol]17.4 mmol/L6.0-15.0[facility] Hospitalerum or plasma non-glucuronidated bilirubin measurement (mass/volume) Ordered By: Gregory Rangel on 50-21-4482Entarphpj.indirect [Mass/Vol]0.4 mg/dL [facility] Hospitalodium [Moles/volume] in Serum or PlasmaOrdered By: Gregory Rangel on 36-81-6550Otlgev [Moles/Vol]139 mmol/J378-434YamszhaunDayton Children'S HospitalTroponin I.cardiac [Mass/volume] in Serum or Plasma by Detection limit <= 0.01 ng/Ordered By: Jordan Hare on 67-23-6427Cpjxgdsn I.cardiac DL <= 0.01 ng/mL [Mass/Vol]18.5 pg/mL0.0-15.0[facility]S HospitalUrea nitrogen [Mass/volume] in Serum or PlasmaOrdered By: Gregory Rangel on 47-41-5113Kzjx nitrogen [Mass/Vol]20 mg/dL7-25Day[facility]'S HospitalWBC Auto (Bld) [#/Vol]Ordered By: Gregory Rangel on 87-01-3166TML (Bld) [#/Vol]6.6 10*3/uL3.8-11.6FSelect Medical Specialty Hospital - CantonIGMOIDOSCOPYon 34-49-1942Toopyhqtb ClinicALED HEALTHon 50-05-8586KNUHXIOlivia Hospital and Clinics Pelvis WO contraston 15-79-4518ZAJCUADIEA: 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 Stage: T3c N+ MRF: Involved (tumor margin within 1 mm of MRF Sphincter involvement: No. Suspicious extra mesorectal lymph nodes: Yes EMVI: Yes. Marketing Admin: HENRY Transcribe Date/Time: Mar 15 2023 1:15P Dictated by : ZAYNAB NDIAYE MD This examination was interpreted and the report reviewed and electronically signed by: ZAYNAB NDIAYE MD on Mar 15 2023 1:51PM [facility] RAD[facility]* * *Final Report* * * DATE OF [...] Grade 1 anterolisthesis of L5 on S1 CORNELIUS RADIOLOGYProvider, [facility] - 03/15/2023 * * *Final Report* * * DATE OF EXAM: Mar 15 2023 1:09PM [facility] 0754 - MRI RECTUM WO/W IVCON [...] extra mesorectal lymph nodes: Yes EMVI: Yes. Marketing Admin: PSCB Transcribe Date/Time: Mar 15 2023 1:15P Dictated by : ZAYNAB NDIAYE MD This examination was interpreted and the report reviewed and electronically signed by: ZAYNAB NDIAYE MD on Mar 15 2023 1:51PM EST [facility] HospitalRadiology Study observation (narrative)[facility] Pelvis WO contrastOrdered By: Ccf Provider on 90-52-3151Bkiezpruo ClinicMRI RECTUM WO/W IVCONon 80-13-0772VYK RECTUM WO/W IVCElizabeth Mason InfirmaryCreatinine [Mass/volume] in Serum or PlasmaOrdered By: Imhank Greene on 45-98-6976Wpzfnoncdx [Mass/Vol]0.52 mg/dL0.60-1.20[facility]S HospitalNo Panel InformationOrdered By: Imhank Jerezad on 29-85-9471Tnlvlzlht GFR (CKD-EPI)> 60.0 mL/MinDayton Children'S HospitalPharmacy Creatinine Clearance (Chem59.72 [facility] Hospitalerum or plasma carcinoembryonic antigen measurement (mass/volume)Ordered By: hank [facility] on 50-70-8877Avpiztoqhfgnvlco Ag [Mass/Vol]2.7 ng/mL0.0-3.0[facility]S HospitalUrea nitrogen [Mass/volume] in Serum or PlasmaOrdered By: Imhank [facility] on 50-71-0177Ufqj nitrogen [Mass/Vol]17 mg/dL7-25[facility]'S HospitalPAP ACOG PANEL 2: 30 to 65on 11-10-2022..NormalThe [facility] on above:Performed By: #### [id number] #### [facility] [place] [facility] [address] [place] [address] Dr. Ghulam PadillaAge Gdln ACOG TestingCommentSelect Medical Specialty [facility] North on above:Result Comment: <21 or >65 or no age providedPerformed By: #### [id number] #### [facility] [place] [facility] [address] [place] [address] Dr. Ghulam PadillaDIAGNOSIS:CommentSelect Medical Specialty Hospital - [facility] North on above: Result Comment: NEGATIVE FOR INTRAEPITHELIAL LESION OR MALIGNANCY. PREDOMINANCE OF COCCOBACILLI CONSISTENT WITH SHIFT IN VAGINAL JONATHAN IS PRESENT.Performed By: #### [id number] #### [facility] [place] [facility] [address] [place] [address] Dr. Ghulam PadillaMethodology:CommentSelect Medical Specialty Hospital - [facility] North on above: Result Comment: This liquid based ThinPrep(R) pap test was screened with the use of an image guided system.Performed By: #### [id number] #### [facility] [place] [facility] [address] [place] [address] Dr. Ghulam PadillaNote:CommentSelect Medical Specialty Hospital - [facility] North on above:Result Comment: The Pap smear is a screening test designed to aid in the detection of premalignant and malignant conditions of the uterine cervix. It is not a diagnostic procedure and should not be used as the sole means of detecting cervical cancer. Both false-positive and false-negative reports do occur. .Performed By: #### [id number] #### [facility] [place] [facility] [address] [place] [address] Dr. Ghulam PadillaPerformed by:CommentProMedica Toledo HospitalComment on above: Result Comment: Maggy Martinez, Wireworker (ASCP)Performed By: #### [id number] #### [facility] [place] [facility] [address] [address] [address] Ghulam Sepulvedaimealtagracia adequacy:CommentSelect Medical Specialty Hospital - [facility] North on above:Result Comment: Satisfactory for evaluation. Endocervical and/or squamous metaplastic cells (endocervical component) are present. Areas of partially obscuring inflammatory exudate are present.Performed By: #### [id number] #### [facility] [place] [facility] [address] [place], [place] [address] Dr. Ghulam PadillaXR DEXA BONE DENSITYon 12-56-3921EU DEXA BONE DENSITYEXAMINATION: XR DEXA BONE DENSITY, 11/07/2022 8:47 AM EDT HISTORY: [...] Electronically authenticated by: ANI CAN Date: 2022-11-07 09:21ProMedica Toledo HospitalOffice Visit (Cardiology)on 17-19-3999Qaaobp-up visit Diagnoses/Problems Assessed Preoperative cardiovascular examination (V72.81) (Z01.810) Hypertension (401.9) (I10) Abnormal stress test (794.39) (R94.39) Overweight with body mass index (BMI) of 25 to 25.9 in adult (278.02,V85.21) (E66.3,Z68.25) Orders Overweight with body mass index (BMI) of 25 to 25.9 in adult Healthy Weight Tips; Status:Complete; Done: 26Oct2022 Some eating tips that can help you lose weight.; Status:Complete; Done: 26Oct2022 Preoperative cardiovascular examination IO EKG Electrocardiogram- 12 Lead; Status:Complete; Done: 85Cuv6453 Patient Instructions Please bring all medicines, vitamins, [...] being seen for a consultation for Charles Lim Knee replacement 12/07/22. History of Present Illness [...] Cholecystectomy History of Complete colonoscopy Managed By: Chiki Priest MD (Gastroenterology) History of Excision melanoma History of [...] negative for complaint. Vitals Vital Signs Recorded: 61Jex3066 02:49PMRecorded: 54Ufc5671 02:48PM Ltypkmvn531, LUE, Zvhodhq856, RUE, Sitting Tgblirvoy38, LUE, Dxtjhft37, RUE, Sitting Heart Rate76, Apical Height5 ft 4.5 in Cmzlbb453 lb BMI Lvmjwuburf40.86 kg/m2 BSA Calculated1.76 Tobacco Useb) No PHQ-2 #1. Over the last 2 weeks have you felt down, depressed or hopeless? (If yes, answer PHQ-9 below)No PHQ-2 #2. Over the last 2 weeks have you felt little interest or pleasure in doing things? (If yes,(more content not included)...NormalUH TouchworksTobacco Screening.on 15-21-7645Hhwlh depression screening assessmentNoQuincy Valley Medical Center KeepRecipes 250 DO Work Phone: Fall risk assessmenta) No falls within the last year [facility] SystemSynac[facility] 250 DO Work Phone: Tobacco use status CPHSb) NoMP-[facility] [place] 250 DO Work Phone: XR knee RT 4V*on 78-73-8356SD knee RT 4V*[facility] [employer] Other XR knee RT 4V*[facility] [employer] Other XR knee RT 4V*[address] [place] [address] [employer] Other XR knee RT 4V*[place] [employer] Other XR knee RT 4V*[facility] [employer] Other XR knee RT 4V*[facility] [employer] Other XR knee RT 4V*Patient: Evan Gill MR#: [id number] [place] [employer] Other XR knee RT 4V*[address] [place] [address] [employer] Other XR knee RT 4V*: 1955 Acct:[id number] [employer] Other XR knee RT 4V*Age/Sex: 66 / F ADM Date: 08/18/22[place] [employer] Other XR knee RT 4V*Loc: SOXD Room: Type: [facility] [employer] Other XR knee RT 4V*Attending Dr: Caroline Rangel II, MD [employer] Other XR knee RT 4V*Copies to: Caroline Rangel MDSilverton [employer] Other XR knee RT 4V*Ordering Provider: Caroline Rangel MD [employer] Other XR knee RT 4V*Date of Service: 08/18/22[place] [employer] Other XR knee RT 4V* XR/XR knee RT 4V*: Bilateral primary osteoarthritis of kneeNomid [facility] [employer] Other XR knee RT 4V*XR knee RT 4V* 08/18/2022 8:00 [facility] [employer] Other XR knee RT 4V*SIGNS AND SYMPTOMS: Right chronic lateral knee painNomid missouri mental health center [employer] Other XR knee RT 4V*PROTOCOL: Frontal, lateral, and oblique radiographs of the right kneeNomid missouri mental health center [employer] Other XR knee RT 4V*COMPARISON: 02/11/2022[place] [employer] Other XR knee RT 4V*FINDINGS:[employer] Other XR knee RT 4V*There is severe narrowing of the medial weightbearing joint space with an osteochondral defectNomid missouri mental health center [employer] Other xr knee RT 4V*present. This appears to measure at least 11 mm in AP dimension. Degenerative changes are worse whenSilver[place] [employer] Other xr knee RT 4V*compared to the prior exam. No definite radiopaque foreign body. There is a moderate joint effusion.[employer] Other xr knee RT 4V*No soft tissue swelling. There is mild patellofemoral joint space loss.[employer] Other XR knee RT 4V* XR/XR knee RT 4V* [employer] Other xr knee RT 4V*IMPRESSION:[employer] Other xr knee RT 4V*compared to the prior exam.[employer] Other xr knee RT 4V*No definite radiopaque foreign body. [employer] Other xr knee RT 4V*Impression dictated by: Dheeraj Montesinos M.D.08/18/2022 10:52 [facility] [employer] Other XR knee RT 4V*Dictation Location: [id number] [employer] Other XR knee RT 4V*Transcribed By: PWS 08/18/[address] [place] [address] [employer] Other xr knee RT 4V*Dictated By: Dheeraj Montesinos II, MD 08/18/[address] [place] [address] [employer] Other XR knee RT 4V*Signed By:[employer] Other xr knee RT 4V*08/18/[address] [place] [address] [employer] Other Albumin [Mass/volume] in Serum or PlasmaOrdered By: Charles Bazzi on 95-66-0184Ivtddrh [Mass/Vol]3.6 g/dL3.2-5.5FSumma Health Wadsworth - Rittman Medical CenterBasophils Auto (Bld) [#/Vol]Ordered By: Charles Bazzi on 05-25-2022 Basophils (Bld) [#/Vol]0.1 10*3/uL0.0-0.2FSumma Health Wad[facility] - R[facility] Center Basophils/100 WBC Auto (Bld)Ordered By: Charles Bazzi on 17-97-9916Nmdvrdmhl/100 WBC (Bld)0.7 %.[facility]'S HospitalCholesterol [Mass/volume] in Serum or PlasmaOrdered By: Charles Bazzi on 59-69-7930Femygeoqrop [Mass/Vol]181 mg/oX305-692QanbialexDayton Children'S HospitalComment on above:Chol less than 200 mg/dl low riskChol 201-239 mg/dl borderline riskChol 240 mg/dl and greater high riskCholesterol in LDL Calc [Mass/Vol]Ordered By: Charles Bazzi on 05-25-2022 Cholesterol in LDL [Mass/Vol]97 mg/dL0-100[facility] Comment on above:LDL ATP III CLASSIFICATIONLDL less than 100 mg/dL OptimalLDL 100-129 mg/dL Near or above gmvjnshYIW455-682 mg/dL Borderline highLDL 160-189 mg/dL HighLDL greater than 189 mg/dL Very highCholesterol in VLDL Calc [Mass/Vol]Ordered By: Charles Bazzi on 11-68-2995Dvrsvayflqq in VLDL [Mass/Vol]13 mg/dLDayton Children'S HospitalCreatinine and Glomerular filtration rate.predicted panel (S/P/Bld)Ordered By: Charles Bazzi on 55-92-8800Gczvlpgucq [Mass/Vol]0.69 mg/dL0.44-1.03[facility]'S HospitalEosinophils Auto (Bld) [#/Vol]Ordered By: Charles Bazzi on 69-82-8066Fclswgzttxf (Bld) [#/Vol]0.2 10*3/uL0.0-0.45Day[facility]S HospitalEosinophils/100 WBC Auto (Bld) Ordered By: Charles Bazzi on 15-03-9392Qhwhnathvhg/100 WBC (Bld)2.3 %.[facility]'S HospitalErythrocyte distribution width Auto (RBC) [Ratio]Ordered By: Charles Bazzi on 05-09-7168Sxzuccsmkmm distribution width (RBC) [Ratio]15.5 % 11.9-15.3FSumma Health Wadsworth - Rittman Medical CenterEstimated glomerular filtration rate (GFR) non- AmericanOrdered By: Charles Bazzi on 79-90-2309OFL/1.73 sq M.predicted among non-blacks MDRD (S/P/Bld) [Vol rate/Area]> 60 mL/MinDayton Children'S HospitalGlobulin Calc (S) [Mass/Vol]Ordered By: Charles Bazzi on 94-10-1863Zfjkcsel (S) [Mass/Vol]2.7 g/dLDayton Children'S Hospital Hematocrit Auto (Bld) [Volume fraction]Ordered By: Charles Bazzi on 05-25-2022 Hematocrit (Bld) [Volume fraction]37.0 %34.0-46.4FSumma Health Wadsworth - Rittman Medical CenterHemoglobin [Mass/volume] in BloodOrdered By: Charles Bazzi on 05-25-2022 Hemoglobin (Bld) [Mass/Vol]12.0 g/dL11.8-15.4FSumma Health W[facility] - [facility] Center Laboratory - Hematology and Cell countsOrdered By: Charles Bazzi on 05-25-2022 Nucleated RBC/100 WBC (Bld) [Ratio]0.0 %0-0.5FSumma Health [facility] Center Leukocytes [#/volume] in Blood by Automated countOrdered By: Charles Bazzi on 02-79-5857RSJ (Bld) [#/Vol]8.2 10*3/uL4.5-11.0[facility] Lymphocytes Auto (Bld) [#/Vol]Ordered By: Charles Bazzi on 34-57-3542Ameleaymyhx (Bld) [#/Vol]2.9 10*3/uL1.00-4.8[facility]S HospitalLymphocytes/100 WBC Auto (Bld)Ordered By: Charles Bazzi on 21-52-3327Fwxvxcpkuyv/100 WBC (Bld)35.1 %.[facility] Auto (RBC) [Entitic mass]Ordered By: Charles Bazzi on 25-93-9186ZPE (RBC) [Entitic mass]29.1 pg24.7-34.3FSumma Health Wadsworth - Rittman Medical CenterMCHC Auto (RBC) [Mass/Vol]Ordered By: Charles Bazzi on 44-91-5350JEIZ (RBC) [Mass/Vol]32.4 g/dL32.0-35.0[facility]S HospitalMCV Auto (RBC) [Entitic vol]Ordered By: Charles Bazzi on 62-80-4679CIC (RBC) [Entitic vol]89.9 yR34-693EkfdwpreeDayton Children'S HospitalMonocytes Auto (Bld) [#/Vol]Ordered By: Charles Bazzi on 92-73-9345Knuxnvfkd (Bld) [#/Vol]0.6 10*3/uL 0.0-0.8[facility]S HospitalMonocytes/100 WBC Auto (Bld)Ordered By: Charles Bazzi on 91-37-6938Rhaelulwe/100 WBC (Bld)7.7 %.[facility]'S HospitalNeutrophils Auto (Bld) [#/Vol]Ordered By: Charles Bazzi on 05-25-2022 Neutrophils (Bld) [#/Vol]4.4 10*3/uL1.8-7.7FSumma Health [facility] Neutrophils/100 WBC Auto (Bld)Ordered By: Charles Bazzi on 05-25-2022 Neutrophils/100 WBC (Bld)54.2 %.[facility]S HospitalNo Panel InformationOrdered By: Charles Bazzi on 03-55-1639Xkozzgcyz GFR ()> 60 mL/MinDayton Children'S HospitalComment on above:GFR estimated reference range: According to KDOQI guidelines, <60 ml/min/1.73m2 is sufficient todiagnose a patient with chronic kidney disease.Pharmacy Creatinine Clearance (ChemN/[facility] CenterPlatelet mean volume Auto (Bld) [Entitic vol]Ordered By: Charles Bazzi on 64-30-4295Czebgcim mean volume (Bld) [Entitic vol]7.2 fL6.3-10.7FSumma Health Wadsworth - Rittman Medical CenterPlatelets Auto (Bld) [#/Vol]Ordered By: Charles Bazzi on 97-60-3951Ihhnbliui (Bld) [#/Vol]441 10*3/uL 150-450Day[facility]S HospitalProtein [Mass/volume] in Serum or Plasma Ordered By: Charles Bazzi on 24-11-8085Tukuxmr [Mass/Vol]6.3 g/dL6.1-7.9[facility]'S HospitalRBC Auto (Bld) [#/Vol]Ordered By: Charles Bazzi on 81-79-2532VOQ (Bld) [#/Vol]4.12 10*6/uL3.60-5.00[facility] Memorial Hospitalerum or plasma alanine aminotransferase measurement without P-5'-P (enzymatic activiOrdered By: Charles Bazzi on 31-36-9894UTQ No additional P-5'-P [Catalytic activity/Vol]19 U/J22-12ZkuqpqemgGuernsey Memorial Hospitalerum or plasma albumin/globulin mass ratioOrdered By: Charles Bazzi on 05-25-2022 Albumin/Globulin [Mass ratio]1.3 {ratio}[facility] Hospitalerum or plasma alkaline phosphatase measurement (enzymatic activity/volume)Ordered By: Charles Bazzi on 90-55-3264PVN [Catalytic activity/Vol]68 U/R35-86VeiwprqxkGuernsey Memorial Hospitalerum or plasma anion gap determinationOrdered By: Charles Bazzi on 96-78-5054Gbfzh gap [Moles/Vol]7.6 mmol/L6.0-15.0[facility] Hospitalerum or plasma aspartate aminotransferase measurement (enzymatic activity/volume)Ordered By: Charles Bazzi on 96-40-4702TGH [Catalytic activity/Vol] 15 U/U52-21AwdqqmnfbGuernsey Memorial Hospitalerum or plasma calcium measurement (mass/volume)Ordered By: Charles Bazzi on 39-71-1264Utdcofb [Mass/Vol]9.0 mg/dL 8.2-10.2FSelect Medical Specialty Hospital - Cantonerum or plasma chloride measurement (moles/volume)Ordered By: Charles Bazzi on 90-56-2221Qsqdrxqj [Moles/Vol]106 mmol/L 95-114Gu[facility] Hospitalerum or plasma glucose measurement (mass/volume)Ordered By: Charles Bazzi on 14-28-1190Wqktjwy [Mass/Vol]91 mg/dL 70-100[facility]'S HospitalComment on above:ADA recommended reference rangeRandom Glucose Reference Range is dependent on time and content of last meal. Glucose of more than 200 mg/dL in a nonstressed, ambulatory subject supports the diagnosisof Diabetes Mellitus.Serum or plasma high density lipoprotein (HDL) cholesterol measurementOrdered By: Charles Bazzi on 05-25-2022 Cholesterol in HDL [Mass/Vol]70 mg/mI60-59OmttosnemDayton Children'S Hospital Comment on above:HDL CHOL ATP-III CLASSIFICATION Cardiovascular RiskHDL > or equal to 60 mg/dL LOWHDL < 40 mg/dL HIGHSerum or plasma potassium measurement (moles/volume)Ordered By: Charles Bazzi on 72-86-8679Zmvxaunsl [Moles/Vol]4.2 mmol/L3.5-5.1FSelect Medical Specialty Hospital - Cantonerum or plasma sodium measurement (moles/volume)Ordered By: Charles Bazzi on 33-53-3337Jynlye [Moles/Vol]136 mmol/L 136-146Gu[facility]sey Memorial Hospitalerum or plasma total bilirubin measurement (mass/volume)Ordered By: Charles Bazzi on 29-02-5811Pjkkvpwwm [Mass/Vol]0.4 mg/dL0.3-1.2FSelect Medical Specialty Hospital - Cantonerum or plasma total carbon dioxide measurement (moles/volume)Ordered By: Charles Bazzi on 05-25-2022 CO2 [Moles/Vol]26.6 mmol/L22.0-30.0[facility] Hospitalerum or plasma total cholesterol/high density lipoprotein (HDL) cholesterol mass rat Ordered By: Charles Bazzi on 05-07-5174Vgiyfnoobdz.total/Cholesterol in HDL [Mass ratio]2.6 {ratio}<5.0[facility] Hospitalerum or plasma urea nitrogen measurement (mass/volume)Ordered By: Charles Bazzi on 37-00-0180Baml nitrogen [Mass/Vol]20 mg/dL9-23Day[facility]'S HospitalTS DL <= 0.005 mIU/L QnOrdered By: Charles Bazzi on 70-56-9091EGR Qn2.62 m[IU]/L0.45-5.33[facility]'S HospitalTriglyceride [Mass/volume] in Serum or PlasmaOrdered By: Charles Bazzi on 87-72-6229Yricccgicnjf [Mass/Vol]68 mg/kG68-598IpdzbpeziDayton Children'S HospitalComment on above:TRIG ATP III CLASSIFICATIONTRIG less than 150 mg/dL NormalTRIG 150-199 mg/dL Borderline highTRIG 200-500 mg/dL High TRIG greater than 500 mg/dL Very highStandard traceable to the Center for Disease Co nrtrol and Prevention (CDC) test method. Vital Signs Date TimeVital SignValuePerforming HdtvjtdgcFbrjpqim19-29-1320 09:30-0400 Diastolic blood vvompdzs88 mm[Hg]Laisha Singer MD Work Phone: [facility]09-04-2025 09:30-0400Heart rate74 /min Laisha Singer MD Work Phone: [facility]09-04-2025 09:30-0400Respiratory rate 16 /minLaisha Singer MD Work Phone: [facility]09-04-2025 09:30-6255NwP1% (BldA) [Mass fraction]100 %Laisha Singer MD Work Phone: [facility]09-04-2025 09:30-0400Systolic blood ooatrcht904 mm[Hg]Laisha Singer MD Work Phone: [facility]09-04-2025 09:06-0400Body temperature 97 [degF]Laisha Singer MD Work Phone: [facility]08-14-2025 14:04-0400Body .6 cmTapan Corona MD Work Phone: [facility]08-14-2025 14:04-0400Body mass index (BMI) [Ratio]25.09 kg/h9LcnbfTapan Corona MD Work Phone: [facility]08-14-2025 14:04-0400Body temperature 99.39 [degF]Tapan Corona MD Work Phone: [facility]08-14-2025 14:04-0400Body nlzydr49.3 kgTapan Corona MD Work Phone: [facility]08-14-2025 14:04-0400Diastolic blood hvjfvphe32 mm[Hg]Tapan Corona MD Work Phone: [facility]08-14-2025 14:04-0400Heart rate67 /min Tapan Corona MD Work Phone: [facility]08-14-2025 14:04-0400Respiratory rate 18 /minTapan Corona MD Work Phone: [place] [address]-14-2025 14:04-1759TnS7% (BldA) [Mass fraction]99 %Tapan Corona MD Work Phone: [facility]08-14-2025 14:04-0400Systolic blood reddubqm795 mm[Hg]Tapan Corona MD Work Phone: [facility]08-14-2025 13:08-0400Body cexeqv204.6 cmLaisha Singer MD Work Phone: [facility]08-14-2025 13:08-0400Body mass index (BMI) [Ratio]25.13 kg/f7GfvdipoLaisha Singer MD Work Phone: [facility]08-14-2025 13:08-0400Body .4 kgLaisha Singer MD Work Phone: [facility]08-14-2025 13:08-0400Diastolic blood faqzxdov83 mm[Hg]Laisha Singer MD Work Phone: [facility]08-14-2025 13:08-0400Heart rate67 /min Laisha Singer MD Work Phone: [facility]08-14-2025 13:08-3216GcL8% (BldA) [Mass fraction]98 %Laisha Singer MD Work Phone: [facility]08-14-2025 13:08-0400Systolic blood tdzebemc652 mm[Hg]Laisha Singer MD Work Phone: [facility]04-02-2025 09:07-0400Body mass index (BMI) [Ratio]27.8 kg/m2JOSE MARIA Hudson MD Work Phone: [facility]04-02-2025 09:07-0400Body temperature 97.59 [degF]JOSE MARIA Hudson MD Work Phone: [facility]04-02-2025 09:07-0400Body eswgbi38.5 kgJOSE MARIA Hudson MD Work Phone: [facility]04-02-2025 09:07-0400Diastolic blood crksoper71 mm[Hg]JOSE MARIA Hudson MD Work Phone: [facility]04-02-2025 09:07-0400Heart rate79 /min JOSE MARIA Hudson MD Work Phone: [facility]04-02-2025 09:07-0400Respiratory rate 16 /CorinnaJOSE MARIA Hudson MD Work Phone: [facility]04-02-2025 09:07-0903UzV9% (BldA) [Mass fraction]98 %NA Lauren VELASQUEZ Work Phone: [facility]04-02-2025 09:07-0400Systolic blood lnvznxqo376 mm[Hg]JOSE MARIA Hudson MD Work Phone: [facility]03-12-2025 11:50-0400Diastolic blood clvilyjr57 mm[Hg]Charles Kuns DO Work Phone: [facility]03-12-2025 11:50-0400 Heart rate59 /minBrett Kuns DO Work Phone: [facility]03-12-2025 11:50-0400 Respiratory rate18 /minBrett Kuns DO Work Phone: [facility]03-12-2025 11:50-0400 SaO2% (BldA) [Mass fraction]100 %Charles Kuns DO Work Phone: [facility]03-12-2025 11:50-0400 Systolic blood mtnkpioh431 mm[Hg]Charles Kuns DO Work Phone: [facility]03-12-2025 10:24-0400 Body xbbiwi937.1 cmBrett Kuns DO Work Phone: [facility]03-12-2025 10:24-0400 Body lmthxi45.39 kgBrett Kuns DO Work Phone: [facility]03-03-2025 10:24-0500 Body .1 cmBrett Kuns DO Work Phone: [facility]03-03-2025 10:24-0500 Body mass index (BMI) [Ratio]26.2 kg/w6Qxdes Kuns DO Work Phone: [facility]03-03-2025 10:24-0500 Body .66 kgBrett Kuns DO Work Phone: [facility]03-03-2025 10:24-0500 Diastolic blood pdojmiwd31 mm[Hg]Charles Kuns DO Work Phone: [facility]03-03-2025 10:24-0500 Heart rate68 /minBrett Kuns DO Work Phone: [facility]03-03-2025 10:24-0500 Respiratory rate18 /minBrett Kuns DO Work Phone: [facility]03-03-2025 10:24-0500 SaO2% (BldA) [Mass fraction]98 %Charles Kuns DO Work Phone: [facility]03-03-2025 10:24-0500 Systolic blood mm[Hg]Charles Kuns DO Work Phone: [facility]02-25-2025 13:52-0500 Body .6 cmTapan Corona MD Work Phone: [facility]02-25-2025 13:52-0500Body mass index (BMI) [Ratio]27.42 kg/n2VjmgmTapan Corona MD Work Phone: [facility]02-25-2025 13:52-0500Body temperature 97.2 [degF]Tapan Corona MD Work Phone: [facility]02-25-2025 13:52-0500Body .5 kgTapan Corona MD Work Phone: [facility]02-25-2025 13:52-0500Diastolic blood mm[Hg]Tapan Corona MD Work Phone: [facility]02-25-2025 13:52-0500Heart rate64 /min Tapan Corona MD Work Phone: [facility]02-25-2025 13:52-0500Respiratory rate 18 /Trenton Corona MD Work Phone: [facility]02-25-2025 13:52-2554PbS7% (BldA) [Mass fraction]98 %Tapan Corona MD Work Phone: [facility]02-25-2025 13:52-0500Systolic blood mamopzbk547 mm[Hg]Tapan Corona MD Work Phone: [facility]02-17-2025 10:05-0500Diastolic blood mm[Hg]Charles Kuns DO Work Phone: [facility]02-17-2025 10:05-0500 Heart rate55 /minBrett Kuns DO Work Phone: [facility]02-17-2025 10:05-0500 Respiratory rate16 /minBrett Kuns DO Work Phone: [facility]02-17-2025 10:05-0500 SaO2% (BldA) [Mass fraction]97 %Charles Kuns DO Work Phone: [facility]02-17-2025 10:05-0500 Systolic blood mm[Hg]Charles Kuns DO Work Phone: [facility]02-17-2025 09:35-0500 Body cfubltsdhhs47.1 [degF]Charles Kuns DO Work Phone: [facility]02-17-2025 07:08-0500 Body zzgnli664.1 cmBrett Kuns DO Work Phone: [facility]02-17-2025 07:08-0500 Body udqmqn88 kgBrett Kuns DO Work Phone: 1(735)073[facility]22[facility]12-03-2024 13:13-0500 Body lfdepa564.56 cmBrett Kuns DO Work Phone: [facility]12-03-2024 13:13-0500 Body mass index (BMI) [Ratio]26.6 kg/r6Xvkxy Kuns DO Work Phone: 1(780)5-[address] [place], [place] 1206112-03-2024 13:13-0500 Body jstzao21.3 kgBrett Kuns DO Work Phone: 1(869)6-[address] [place], [place] 1206112-03-2024 13:13-0500 Diastolic blood oqaeoqik92 mm[Hg]Charles Kuns DO Work Phone: 1(732)653-[address] [place], [place] 1206112-03-2024 13:13-0500 Heart rate67 /minBrett Kuns DO Work Phone: 1(871)[address]12-03-2024 13:13-0500 Respiratory rate16 /minBrett Kuns DO Work Phone: 1(318)2-[address] [place], [place] 1206112-03-2024 13:13-0500 SaO2% (BldA) [Mass fraction]98 %Charles Kuns DO Work Phone: 1(707)1-[address] [place], [place] 1206112-03-2024 13:13-0500 Systolic blood gbtklopx597 mm[Hg]Charles Kuns DO Work Phone: 1(196)[address]11-22-2024 14:50-0500 Diastolic blood bxljwesu34 mm[Hg]Charles Kuns DO Work Phone: 1(641)8-19[facility]11-22-2024 14:50-0500 Heart rate65 /minBrett Kuns DO Work Phone: 1(590)386-[address] [place], [place] 1206111-22-2024 14:50-0500 Respiratory rate16 /minBrett Kuns DO Work Phone: 1(281)2-[address] [place], [place] 1206111-22-2024 14:50-0500 SaO2% (BldA) [Mass fraction]99 %Charles Kuns DO Work Phone: 1(606)160-[address] [place], [place] 1206111-22-2024 14:50-0500 Systolic blood lloviapx137 mm[Hg]Charles Kuns DO Work Phone: 1(382)[address]11-22-2024 14:05-0500 Body efyilcsjdqy24.3 [degF]Charles Kuns DO Work Phone: 1(012)[address] [place], [place] 5067211-22-2024 14:05-0500 Inhaled oxygen flow rate8 L/minBrett Kuns DO Work Phone: 1(530)[address] [place], [place] 5067211-22-2024 11:31-0500 Body .56 cmBrett Kuns DO Work Phone: 1(019)[address] [place], [place] 5067211-22-2024 11:31-0500 Body miwwig22.13 kgBrett Kuns DO Work Phone: 1(319)[address] [place], [place] 5067211-14-2024 10:55-0500 Diastolic blood bwdkoxfj36 mm[Hg]Charles Kuns DO Work Phone: 1(548)[address] [place], [place] 5067211-14-2024 10:55-0500 Heart rate64 /minBrett Kuns DO Work Phone: 1(762)[address] [place], [place] 5067211-14-2024 10:55-0500 Respiratory rate16 /minBrett Kuns DO Work Phone: 1(607)[address] [place], [place] 5067211-14-2024 10:55-0500 SaO2% (BldA) [Mass fraction]98 %Charles Kuns DO Work Phone: 1(370)[facility] [place], [place] 1206111-14-2024 10:55-0500 Systolic blood jhhunwif961 mm[Hg]Charles Kuns DO Work Phone: 1(874)[address] [place], [place] 5067211-14-2024 08:25-0500 Body mvwqfa618.1 cmBrett Kuns DO Work Phone: 1(194)[address]11-14-2024 08:25-0500 Body ddntlelotyn19.1 [degF]Charles Kuns DO Work Phone: [facility]11-14-2024 08:25-0500 Body vuoqfz73.6 kgBrett Kuns DO Work Phone: 1(833)[phone]11-13-2024 14:48-0500 Diastolic blood mm[Hg]Charles Kuns DO Work Phone: [facility]11-13-2024 14:48-0500 Heart rate80 /minBrett Kuns DO Work Phone: [address] [place], [place] 6162511-13-2024 14:48-0500 Respiratory rate18 /minBrett Kuns DO Work Phone: 2(544)[address] [place], [place] 1206111-13-2024 14:48-0500 SaO2% (BldA) [Mass fraction]98 %Charles Kuns DO Work Phone: [address] [place], [place] 6162511-13-2024 14:48-0500 Systolic blood okmdmatz273 mm[Hg]Charles Kuns DO Work Phone: 1(868)780-[address] [place], [place] 1206111-13-2024 11:56-0500 Body awhkme309.1 cmBrett Kuns DO Work Phone: 5(038)5-[address] [place], [place] 6162511-13-2024 11:56-0500 Body waqpwrhqqhb74.9 [degF]Charles Kuns DO Work Phone: [facility]11-13-2024 11:56-0500 Body skducc15.95 kgBrett Kuns DO Work Phone: [facility]10-30-2024 13:54-0400 Body ibhrgh072.6 cmTapan Corona MD Work Phone: [facility]10-30-2024 13:54-0400Body mass index (BMI) [Ratio]26.27 kg/j6MboxbTapan Corona MD Work Phone: [facility]10-30-2024 13:54-0400Body temperature 99 [degF]Tapan Corona MD Work Phone: [facility]10-30-2024 13:54-0400Body eoljwl20.45 kgTapan Corona MD Work Phone: [facility]10-30-2024 13:54-0400Diastolic blood gchudpji40 mm[Hg]Tapan Corona MD Work Phone: [facility]10-30-2024 13:54-0400Heart rate70 /min Tapan Corona MD Work Phone: [facility]10-30-2024 13:54-0400Respiratory rate 18 /minTapan Corona MD Work Phone: [facility]10-30-2024 13:54-0418AcN7% (BldA) [Mass fraction]100 %Tapan Corona MD Work Phone: [facility]10-30-2024 13:54-0400Systolic blood mm[Hg]Tapan Corona MD Work Phone: [facility]10-02-2024 09:56-0400Body mass index (BMI) [Ratio]26.02 kg/m2JOSE MARIA Hudson MD Work Phone: [facility]10-02-2024 09:56-0400Body temperature 98.01 [degF]JOSE MARIA Hudson MD Work Phone: [facility]10-02-2024 09:56-0400Body zujcwc82.8 kgJOSE MARIA Hudson MD Work Phone: [facility]10-02-2024 09:56-0400Diastolic blood ypwqtokm22 mm[Hg]JOSE MARIA Hudson MD Work Phone: [facility]10-02-2024 09:56-0400Heart rate62 /min JOSE MARIA Hudson MD Work Phone: [facility]10-02-2024 09:56-0400Respiratory rate 16 /CorinnaJOSE MARIA Hudson MD Work Phone: [facility]10-02-2024 09:56-3427IzG3% (BldA) [Mass fraction]99 %JOSE MARIA Hudson MD Work Phone: [facility]10-02-2024 09:56-0400Systolic blood nyvwfhbn809 mm[Hg]NA Lauren VELASQUEZ Work Phone: [facility]07-30-2024 11:15-0400Body .6 cmTapan Corona MD Work Phone: [facility]07-30-2024 11:15-0400Body mass index (BMI) [Ratio]25.61 kg/z3HdouqTapan Corona MD Work Phone: [facility]07-30-2024 11:15-0400Body temperature 97.7 [degF]Tapan Corona MD Work Phone: [facility]07-30-2024 11:15-0400Body .7 kgTapan Corona MD Work Phone: [facility]07-30-2024 11:15-0400Diastolic blood lrvbxriw77 mm[Hg]Tapan Corona MD Work Phone: [facility]07-30-2024 11:15-0400Heart rate76 /min Tapan Corona MD Work Phone: [facility]07-30-2024 11:15-0400Respiratory rate 16 /minTapan Corona MD Work Phone: [facility]07-30-2024 11:15-2229FhE7% (BldA) [Mass fraction]98 %Tapan Corona MD Work Phone: [facility]07-30-2024 11:15-0400Systolic blood egqwynap519 mm[Hg]Tapan Corona MD Work Phone: [facility]07-02-2024 14:09-0400Body mass index (BMI) [Ratio]24.2 kg/k1YjjswrnLaisha Singer MD Work Phone: [facility]07-02-2024 14:09-0400Body temperature 97.81 [degF]Laisha Singer MD Work Phone: [facility]07-02-2024 14:09-0400Body ersbdn22.96 kgLaisha Singer MD Work Phone: [facility]07-02-2024 14:09-0400Diastolic blood srjhcbay85 mm[Hg]Laisha Singer MD Work Phone: [facility]07-02-2024 14:09-0400Heart rate64 /min Laisha Singer MD Work Phone: [facility]07-02-2024 14:09-8886IaQ7% (BldA) [Mass fraction]99 %Laisha Singer MD Work Phone: [facility]07-02-2024 14:09-0400Systolic blood opqnzvne170 mm[Hg]Laisha Singer MD Work Phone: [facility]05-17-2024 15:29-0400Body pmqyqg534.6 cmBrandie Salmeron OPTICAL DESIGN ENGINEERLupisCITRUS FRUIT COLORER Work Phone: [facility]05-17-2024 15:29-0400Body mass index (BMI) [Ratio]24.2 kg/c2VtzagntBrandie Salmeron OPTICAL DESIGN ENGINEER.[employer] Work Phone: [facility]05-17-2024 15:29-0400Body temperature 97.3 [degF]Brandie Salmeron OPTICAL DESIGN ENGINEER.[employer] Work Phone: [facility]05-17-2024 15:29-0400Body msjmci29.96 kgBrandie Salmeron OPTICAL DESIGN ENGINEER.[employer] Work Phone: [facility]05-17-2024 15:29-0400Diastolic blood aavrrsjz95 mm[Hg]Brandie Salmeron OPTICAL DESIGN ENGINEER.[employer] Work Phone: [facility]05-17-2024 15:29-0400Heart rate57 /min Brandie Faviola OPTICAL DESIGN ENGINEER.[employer] Work Phone: [facility]05-17-2024 15:29-0400Systolic blood qanomjab732 mm[Hg]Brandie Houstontammy OPTICAL DESIGN ENGINEER.[employer] Work Phone: [facility]04-20-2024 13:26-0400Body temperature 97.5 [degF]DO Charles Kuns Work Phone: [facility]04-20-2024 13:26-0400 Diastolic blood mm[Hg]DO Charles Kuns Work Phone: [facility]04-20-2024 13:26-0400 Heart rate77 /minDO Charles Kuns Work Phone: [facility]04-20-2024 13:26-0400 Respiratory rate16 /minDO Charles Kuns Work Phone: [facility]04-20-2024 13:26-0400 SaO2% (BldA) [Mass fraction]100 %DO Charles Kuns Work Phone: [facility]04-20-2024 13:26-0400 Systolic blood uxcugili541 mm[Hg]DO Charles Kuns Work Phone: [facility]04-20-2024 05:55-0400 Body zawkzc58.6 kgDO Charles Kuns Work Phone: [facility]04-18-2024 15:42-0400 Body .56 cmDO Charles Kuns Work Phone: [facility]04-18-2024 03:21-0400 Diastolic blood ogqikkfk29 mm[Hg]DO Charles Kuns Work Phone: [facility]04-18-2024 03:21-0400 Heart rate75 /minDO Charles Kuns Work Phone: [facility]04-18-2024 03:21-0400 Respiratory rate15 /minDO Charles Bazzi Work Phone: [facility]04-18-2024 03:21-0400 SaO2% (BldA) [Mass fraction]96 %DO Charles Bazzi Work Phone: [facility]04-18-2024 03:21-0400 Systolic blood gnhuoebx437 mm[Hg]DO Charles Bazzi Work Phone: [facility]04-18-2024 01:53-0400 Body fnldkecgthj83 [degF]DO Charles Bazzi Work Phone: [facility]04-17-2024 20:18-0400 Body ztzlyg750.56 cmDO Charles Bazzi Work Phone: [facility]04-17-2024 20:18-0400 Body tcttro08.9 kgDO Charles Bazzi Work Phone: [facility]04-02-2024 10:42-0400 Body rqkxif502.6 cmTapan Corona MD Work Phone: [facility]04-02-2024 10:42-0400Body temperature 98.01 [degF]Tapan Corona MD Work Phone: [facility]04-02-2024 10:42-0400Body urbkgu25.7 kgTapan Corona MD Work Phone: [facility]04-02-2024 10:42-0400Diastolic blood cuqnmuzx34 mm[Hg]Tapan Corona MD Work Phone: [facility]04-02-2024 10:42-0400Heart rate92 /min Tapan Corona MD Work Phone: [facility]04-02-2024 10:42-0400Respiratory rate 16 /minKasra Karamlou MD Work Phone: [facility]04-02-2024 10:42-7327JhV9% (BldA) [Mass fraction]100 %Tapan Corona MD Work Phone: [facility]04-02-2024 10:42-0400Systolic blood jzigsnkq704 mm[Hg]Tapan Corona MD Work Phone: [facility]03-24-2024 12:00-0400Body temperature 98.1 [degF]DO Charles Tipsers Work Phone: [facility]03-24-2024 12:00-0400 Diastolic blood cbjrlqwi43 mm[Hg]DO Charles Kuns Work Phone: [facility]03-24-2024 12:00-0400 Heart rate63 /minDO Charles Kuns Work Phone: [facility]03-24-2024 12:00-0400 Respiratory rate16 /minDO Charles Kuns Work Phone: [facility]03-24-2024 12:00-0400 SaO2% (BldA) [Mass fraction]98 %DO Charles Kuns Work Phone: [facility]03-24-2024 12:00-0400 Systolic blood wvzqtxel395 mm[Hg]DO Charles Kuns Work Phone: [facility]03-24-2024 06:00-0400 Body uqlcuz38 kgDO Charles Tipsers Work Phone: [facility]03-23-2024 04:29-0400 Body ekwahn115.56 cmDO Charles Tipsers Work Phone: [facility]03-23-2024 04:08-0400 Body zewnwzfnvus21.1 [degF]DO Charles Kuns Work Phone: [facility]03-23-2024 04:08-0400 Diastolic blood xbdogkyu33 mm[Hg]DO Charles Kuns Work Phone: [facility]03-23-2024 04:08-0400 Heart rate68 /minDBoaz Bazzi Work Phone: [facility]03-23-2024 04:08-0400 Respiratory rate16 /minDO Charles Kunpacheco Work Phone: [facility]03-23-2024 04:08-0400 SaO2% (BldA) [Mass fraction]96 %DO Charles Kuns Work Phone: [facility]03-23-2024 04:08-0400 Systolic blood sdseayhk198 mm[Hg]DO Charles Kuns Work Phone: [facility]03-23-2024 00:58-0400 Body dqeaol562.56 cmDO Charles Alejos Work Phone: [facility]03-23-2024 00:58-0400 Body nzvjob68.59 kgDO Charlespeyton Bazzi Work Phone: [facility]03-15-2024 14:30-0400 Body ljxcad663.6 cmBrandie Salmeron OPTICAL DESIGN ENGINEER.[employer] Work Phone: [facility]03-15-2024 14:30-0400Body temperature 97.3 [degF]Brandie Salmeron OPTICAL DESIGN ENGINEER.[employer] Work Phone: [facility]03-15-2024 14:30-0400Body cocxhu13.6 kgBrandie Salmeron OPTICAL DESIGN ENGINEER.[employer] Work Phone: [facility]03-15-2024 14:30-0400Diastolic blood ffllbjew24 mm[Hg]Brandie Salmeron OPTICAL DESIGN ENGINEER.[employer] Work Phone: [facility]03-15-2024 14:30-0400Heart rate62 /min Brandie Salmeron OPTICAL DESIGN ENGINEER.[employer] Work Phone: [facility]03-15-2024 14:30-4285CkC5% (BldA) [Mass fraction]100 %Brandie Salmeron OPTICAL DESIGN ENGINEER.[employer] Work Phone: [facility]03-15-2024 14:30-0400Systolic blood kjpskkpi995 mm[Hg]Brandie Salmeron OPTICAL DESIGN ENGINEER.[employer] Work Phone: [facility]02-02-2024 12:03-0500Body rvgyid049.1 cmPacc 2 Work Phone: [phone]02-02-2024 12:03-0500Body temperature 97 [degF]Pacc 2 Work Phone: [phone]02-02-2024 12:03-0500Body .5 kgPacc 2 Work Phone: [phone]02-02-2024 12:03-0500Diastolic blood sqwgzokq74 mm[Hg]Pacc 2 Work Phone: [phone]02-02-2024 12:03-0500Heart rate71 /min Pacc 2 Work Phone: [phone]02-02-2024 12:03-0500Respiratory rate 18 /minPacc 2 Work Phone: [phone]02-02-2024 12:03-3853KcA5% (BldA) [Mass fraction]99 %Pacc 2 Work Phone: [phone]02-02-2024 12:03-0500Systolic blood odxkczle928 mm[Hg]Pacc 2 Work Phone: [phone]01-16-2024 12:42-0500Body .1 cmMarcos Rios MD Work Phone: [facility]01-16-2024 12:42-0500 Body mass index (BMI) [Ratio]24.3 kg/s5PejtpoqMarcos Rios MD Work Phone: [address] [place], [place] 5352301-16-2024 12:42-0500 Body msomon15.22 kgMarcos Rios MD Work Phone: [address] [place], [place] 5352301-16-2024 12:42-0500 Diastolic blood jfnmsfhu28 mm[Hg]Marcos Rios MD Work Phone: [address] [place], [place] 5352301-16-2024 12:42-0500 Heart rate66 /Katrina Rios MD Work Phone: [address] [place], [place] 5352301-16-2024 12:42-0500 Systolic blood dwfwgede560 mm[Hg]Marcos Rios MD Work Phone: 3(569)134-[address] [place], [place] 2945012-18-2023 15:25-0500 Diastolic blood foyqcicg09 mm[Hg]DO Charles Kuns Work Phone: [facility]12-18-2023 15:25-0500 Heart rate58 /minDO Charles Kuns Work Phone: [facility]12-18-2023 15:25-0500 Respiratory rate16 /minDO Charles Kuns Work Phone: [facility]12-18-2023 15:25-0500 SaO2% (BldA) [Mass fraction]97 %DO Charles Kuns Work Phone: [facility]12-18-2023 15:25-0500 Systolic blood dqyimdkk166 mm[Hg]DO Charles Kuns Work Phone: [facility]12-18-2023 13:18-0500 Body .56 cmDO Charles Kuns Work Phone: [facility]12-18-2023 13:18-0500 Body mass index (BMI) [Ratio]23.6 kg/m2DO Charles Kuns Work Phone: [facility]12-18-2023 13:18-0500 Body mnfbta49.59 kgDO Charles Bazzi Work Phone: [facility]12-18-2023 10:43-0500 Body spalsymvygz72 [degF]DO Charles Bazzi Work Phone: [facility]12-06-2023 14:51-0500 Body .6 cmTapan Corona MD Work Phone: [facility]12-06-2023 14:51-0500Body temperature 98.01 [degF]Tapan Corona MD Work Phone: [facility]12-06-2023 14:51-0500Body raolfo98.41 kgTapan Corona MD Work Phone: [facility]12-06-2023 14:51-0500Diastolic blood sdkgwulq91 mm[Hg]Tapan Corona MD Work Phone: [facility]12-06-2023 14:51-0500Heart rate77 /min Tapan Corona MD Work Phone: [facility]12-06-2023 14:51-0500Respiratory rate 16 /minTapan Corona MD Work Phone: [facility]12-06-2023 14:51-1684PhG8% (BldA) [Mass fraction]94 %Tapan Corona MD Work Phone: [facility]12-06-2023 14:51-0500Systolic blood irscjatj686 mm[Hg]Tapan Corona MD Work Phone: [facility]11-30-2023 13:30-0500Diastolic blood mm[Hg]Laisha Singer MD Work Phone: [facility]11-30-2023 13:30-0500Heart rate73 /min Laisha Singer MD Work Phone: [facility]11-30-2023 13:30-0500Respiratory rate 17 /minLaisha Singer MD Work Phone: [facility]11-30-2023 13:30-4859YjM0% (BldA) [Mass fraction]100 %Laisha Singer MD Work Phone: [facility]11-30-2023 13:30-0500Systolic blood mm[Hg]Laisha Singer MD Work Phone: [facility]11-30-2023 13:11-0500Body temperature 97.2 [degF]Laisha Singer MD Work Phone: [facility]11-30-2023 12:40-0500Body dptjob88.6 kgLaisha Singer MD Work Phone: [facility]11-20-2023 10:20-0500Body temperature 96.69 [degF]JOSE MARIA Hudson MD Work Phone: [facility]11-20-2023 10:20-0500Body oaxwhm81.6 kgJOSE MARIA Hudson MD Work Phone: [facility]11-20-2023 10:20-0500Diastolic blood ivgkhpcm22 mm[Hg]JOSE MARIA Hudson MD Work Phone: [facility]11-20-2023 10:20-0500Heart rate64 /min JOSE MARIA Hudson MD Work Phone: [place] [address]-20-2023 10:20-0500Respiratory rate 18 /CorinnaJOSE MARIA Hudson MD Work Phone: [place] [address]-20-2023 10:20-2068PcB4% (BldA) [Mass fraction]98 %JOSE MARIA Hudson MD Work Phone: [facility]11-20-2023 10:20-0500Systolic blood waikwcko615 mm[Hg]JOSE MARIA Hudson MD Work Phone: [facility]10-30-2023 10:59-0400Body temperature 96.91 [degF]JOSE MARIA Hudson MD Work Phone: [facility]10-30-2023 10:59-0400Body kirxla48.69 kgJOSE MARIA Hudson MD Work Phone: [facility]10-30-2023 10:59-0400Diastolic blood mm[Hg]JOSE MARIA Hudson MD Work Phone: [facility]10-30-2023 10:59-0400Heart rate74 /min JOSE MARIA Hudson MD Work Phone: [facility]10-30-2023 10:59-0400Respiratory rate 16 /CorinnaJOSE MARIA Hudson MD Work Phone: [facility]10-30-2023 10:59-9596LtK9% (BldA) [Mass fraction]95 %JOSE MARIA Hudson MD Work Phone: [facility]10-30-2023 10:59-0400Systolic blood ezfoirgu552 mm[Hg]JOSE MARIA Hudson MD Work Phone: [facility]10-23-2023 11:05-0400Body temperature 96.69 [degF]JOSE MARIA Hudson MD Work Phone: [facility]10-23-2023 11:05-0400Body cbmrta19.05 kgJOSE MARIA Hudson MD Work Phone: [facility]10-23-2023 11:05-0400Diastolic blood eihllfsy87 mm[Hg]JOSE MARIA Hudson MD Work Phone: [facility]10-23-2023 11:05-0400Heart rate61 /min JOSE MARIA Hudson MD Work Phone: [facility]10-23-2023 11:05-0400Respiratory rate 18 /CorinnaJOSE MARIA Hudson MD Work Phone: [facility]10-23-2023 11:05-4133CpD1% (BldA) [Mass fraction]95 %JOSE MARIA Hudson MD Work Phone: [facility]10-23-2023 11:05-0400Systolic blood mm[Hg]JOSE MARIA Hudson MD Work Phone: [facility]10-23-2023 08:45-0400Body bandwy612.1 cmCharles aBzzi Other [employer] Other 10-23-2023 08:45-0400Body mass index (BMI) [Ratio] 22.63 kg/i6CubtqCharles Bazzi Other [employer] Other 10-23-2023 08:45-0400Body jfgkao71.69 kgCharles Bazzi Other [employer] Other 10-23-2023 08:45-0400Diastolic blood ovthchzc85 mm[Hg] Charles Bazzi Other [employer] Other 10-23-2023 08:45-0400Respiratory rate16 /minCharles Bazzi Other [employer] Other 10-23-2023 08:45-1785SuU3% (BldA) [Mass fraction]99 % Charles Bazzi Other [employer] Other 10-23-2023 08:45-0400Systolic blood nrikbiwv220 mm[Hg] Charles Bazzi Other [employer] Other 10-20-2023 14:08-0400Body botjjs034.6 cmTapan Corona MD Work Phone: [facility]10-20-2023 14:08-0400Body temperature 97.7 [degF]Tapan Corona MD Work Phone: [facility]10-20-2023 14:08-0400Body vbexyi21.32 kgTapan Corona MD Work Phone: [facility]10-20-2023 14:08-0400Diastolic blood relosecc01 mm[Hg]Tapan Corona MD Work Phone: [facility]10-20-2023 14:08-0400Heart rate65 /min Tapan Corona MD Work Phone: [facility]10-20-2023 14:08-0400Respiratory rate 18 /minTapan Corona MD Work Phone: [facility]10-20-2023 14:08-4740YdA5% (BldA) [Mass fraction]99 %Tapan Corona MD Work Phone: [facility]10-20-2023 14:08-0400Systolic blood mm[Hg]Tapan Corona MD Work Phone: [facility]10-16-2023 11:33-0400Body temperature 96.69 [degF]JOSE MARIA Hudson MD Work Phone: [facility]10-16-2023 11:33-0400Body dhedkz11.08 kgJOSE MARIA Hudson MD Work Phone: [facility]10-16-2023 11:33-0400Diastolic blood ysroexpa42 mm[Hg]JOSE MARIA Hudson MD Work Phone: [facility]10-16-2023 11:33-0400Heart rate72 /min JOSE MARIA Hudson MD Work Phone: [facility]10-16-2023 11:33-0400Respiratory rate 18 /CorinnaJOSE MARIA Hudson MD Work Phone: [facility]10-16-2023 11:33-0217QqN1% (BldA) [Mass fraction]99 %JOSE MARIA Hudson MD Work Phone: [place] [address]-16-2023 11:33-0400Systolic blood ywpxfruu694 mm[Hg]JOSE MARIA Hudson MD Work Phone: [facility]10-06-2023 10:05-0400Body lilsaa910.7 cmTapan Corona MD Work Phone: [facility]10-06-2023 10:05-0400Body temperature 97.5 [degF]Tapan Corona MD Work Phone: [facility]10-06-2023 10:05-0400Body lixcgx66.69 kgTapan Corona MD Work Phone: [phone]10-06-2023 10:05-0400Diastolic blood tnngtjod48 mm[Hg]Tapan Corona MD Work Phone: [phone]10-06-2023 10:05-0400Heart rate71 /min Tapan Corona MD Work Phone: [phone]10-06-2023 10:05-0400Respiratory rate 16 /minTapan Corona MD Work Phone: [facility]10-06-2023 10:05-2772HlE4% (BldA) [Mass fraction]99 %Tapan Corona MD Work Phone: [facility]10-06-2023 10:05-0400Systolic blood kqaazjae337 mm[Hg]Tapan Corona MD Work Phone: [facility]10-02-2023 11:10-0400Body temperature 97.81 [degF]JOSE MARIA Hudson MD Work Phone: [facility]10-02-2023 11:10-0400Body .05 kgJOSE MARIA Hudson MD Work Phone: [facility]10-02-2023 11:10-0400Diastolic blood sqwwenfm25 mm[Hg]JOSE MARIA Hudson MD Work Phone: [facility]10-02-2023 11:10-0400Heart rate71 /min JOSE MARIA Hudson MD Work Phone: [facility]10-02-2023 11:10-0400Respiratory rate 18 /CorinnaJOSE MARIA Hudson MD Work Phone: [facility]10-02-2023 11:10-3737EyW7% (BldA) [Mass fraction]99 %JOSE MARIA Hudson MD Work Phone: [facility]10-02-2023 11:10-0400Systolic blood dfofancn832 mm[Hg]JOSE MARIA Hudson MD Work Phone: [facility]09-28-2023 12:44-0400Body temperature 97.9 [degF]DO Charles Kuns Work Phone: [facility]09-28-2023 12:44-0400 Diastolic blood skupykny77 mm[Hg]DO Charles Kuns Work Phone: [facility]09-28-2023 12:44-0400 Heart rate77 /minDO Charles Kuns Work Phone: [facility]09-28-2023 12:44-0400 Respiratory rate14 /minDO Charles Kuns Work Phone: [facility]09-28-2023 12:44-0400 SaO2% (BldA) [Mass fraction]99 %DO Charles Kuns Work Phone: [facility]09-28-2023 12:44-0400 Systolic blood mm[Hg]DO Charles Kuns Work Phone: [facility]09-28-2023 06:13-0400 Body kgDO Charles Tipsers Work Phone: [facility]09-27-2023 18:29-0400 Body gpoxyh386.02 cmDO Charles Kuns Work Phone: [facility]09-27-2023 17:00-0400 Diastolic blood ylzdxlwv41 mm[Hg]DO Charles Alejos Work Phone: [facility]09-27-2023 17:00-0400 Heart rate70 /minDO Charles Bazzi Work Phone: [facility]09-27-2023 17:00-0400 Respiratory rate16 /minDO Charles Bazzi Work Phone: [facility]09-27-2023 17:00-0400 SaO2% (BldA) [Mass fraction]99 %DO Charles Alejos Work Phone: [facility]09-27-2023 17:00-0400 Systolic blood itfjsuly788 mm[Hg]DO Charles Kuns Work Phone: [facility]09-27-2023 13:02-0400 Body .02 cmDO Charles Tipserpacheco Work Phone: [facility]09-27-2023 13:02-0400 Body rahpwsqfxta66.2 [degF]DO Charles Tipserpacheco Work Phone: [facility]09-27-2023 13:02-0400 Body jzfydj30.23 kgDO Charles [employer] Work Phone: [facility]09-25-2023 12:00-0400 Body jdbriqdpipt53.69 [degF]JOSE MARIA Hudson MD Work Phone: [facility]09-25-2023 12:00-0400Body lcovxm52.6 kgJOSE MARIA Hudson MD Work Phone: [facility]09-25-2023 12:00-0400Diastolic blood hilsomof50 mm[Hg]JOSE MARIA Hudson MD Work Phone: [facility]09-25-2023 12:00-0400Heart rate63 /min JOSE MARIA Hudson MD Work Phone: [facility]09-25-2023 12:00-0400Respiratory rate 18 /CorinnaJOSE MARIA Hudson MD Work Phone: [facility]09-25-2023 12:00-3938TaE2% (BldA) [Mass fraction]97 %JOSE MARIA Hudson MD Work Phone: [facility]09-25-2023 12:00-0400Systolic blood rxvkwqim745 mm[Hg]NA Lauren VELASQUEZ Work Phone: [facility]09-13-2023 14:30-0400Body lxfqme226.7 cmTapan Corona MD Work Phone: [facility]09-13-2023 14:30-0400Body temperature 97.81 [degF]Tapan Corona MD Work Phone: [facility]09-13-2023 14:30-0400Body avssxx50.78 kgTapan Corona MD Work Phone: [facility]09-13-2023 14:30-0400Diastolic blood mm[Hg]Tapan Corona MD Work Phone: [facility]09-13-2023 14:30-0400Heart rate65 /min Tapan Corona MD Work Phone: [facility]09-13-2023 14:30-0400Respiratory rate 16 /minTapan Corona MD Work Phone: [facility]09-13-2023 14:30-9203VcK5% (BldA) [Mass fraction]99 %Tapan Corona MD Work Phone: [facility]09-13-2023 14:30-0400Systolic blood wlntuslq606 mm[Hg]Tapan Corona MD Work Phone: [facility]09-07-2023 13:30-0400Diastolic blood kusorlxb57 mm[Hg]Laisha Singer MD Work Phone: [facility]09-07-2023 13:30-0400Heart rate66 /min Laisha Singer MD Work Phone: [facility]09-07-2023 13:30-0400Respiratory rate 18 /minLaisha Singer MD Work Phone: [facility]09-07-2023 13:30-3833KbY1% (BldA) [Mass fraction]100 %Laisha Singer MD Work Phone: [facility]09-07-2023 13:30-0400Systolic blood avlxevde07 mm[Hg]Laisha Singer MD Work Phone: [facility]09-07-2023 13:07-0400Body temperature 97.39 [degF]Laisha Singer MD Work Phone: [facility]08-28-2023 11:55-0400Diastolic blood beodkrmm35 mm[Hg]DO Charles Kuns Work Phone: [facility]08-28-2023 11:55-0400 Heart rate79 /minDO Charles Kuns Work Phone: [facility]08-28-2023 11:55-0400 Respiratory rate18 /minDO Charles Kuns Work Phone: [facility]08-28-2023 11:55-0400 SaO2% (BldA) [Mass fraction]100 %DO Charles Kuns Work Phone: [facility]08-28-2023 11:55-0400 Systolic blood uykbgzeu644 mm[Hg]DO Charles Kuns Work Phone: [facility]08-28-2023 09:03-0400 Body ameerg552.1 cmDO Charles Kuns Work Phone: [facility]08-28-2023 09:03-0400 Body umtmkniynkz88.6 [degF]DO Charles Kuns Work Phone: [facility]08-28-2023 09:03-0400 Body mhssgo79.23 kgDO Charlespeyton Lucios Work Phone: [facility]04-24-2023 10:00-0400 Body tzggda740.1 cmCharles Bazzi Other [employer] Other 04-24-2023 10:00-0400Body mass index (BMI) [Ratio] 25.29 kg/n0AdkzeCharles Bazzi Other [employer] Other 04-24-2023 10:00-0400Body amrkys05.95 kgBrepeyton Bazzi Other [employer] Other 04-24-2023 10:00-0400Diastolic blood unyciaje34 mm[Hg] Charles Alejopacheco Other [employer] Other 04-24-2023 10:00-0400Respiratory rate16 /minBrepeyton Dixie Other [employer] Other 04-24-2023 10:00-8886YbY2% (BldA) [Mass fraction]96 % Charlespeyton Bazzi Other [employer] Other 04-24-2023 10:00-0400Systolic blood yoehaxfe303 mm[Hg] Charles Alejos Other [employer] Other 04-19-2023 14:49-0400Diastolic blood fdyfyhty87 mm[Hg] Charles R Alejos Work Phone: [phone]-Flbco [facility] [address] DO Work Phone: 1(671) 263-432204-19-2023 14:49-0400Systolic blood tvtrjlme660 mm[Hg] Charles R Kuns Work Phone: mp281-6565TI-Pgghe [facility] [address] DO Work Phone: 1(725) 822-281104-19-2023 14:48-0400Body igmbqd773.83 cmBrett R Kuns Work Phone: [phone]-Eqjtf [facility] DO Work Phone: 1(570) 711-300804-19-2023 14:48-0400Body mass index (BMI) [Ratio] 25.86 kg/i3Bnbmh R Kuns Work Phone: mp841-2108CS-Wmdey [facility] [address] DO Work Phone: 1(236) 375-475104-19-2023 14:48-0400Body surface area Derived from formula1.76 c6Szxdi R Kuns Work Phone: mp578-2606LZ-Dqtee [facility] [address] DO Work Phone: 1(120) 539-876704-19-2023 14:48-0400Body sfxaln82.4 kgBrett R Kuns Work Phone: [phone]-Mgmyn [facility] [address] DO Work Phone: 1(227) 775-611804-19-2023 14:48-0400Diastolic blood arlanawd90 mm[Hg] Charles R Kuns Work Phone: mp303-7121WL-Lgkxm [facility] DO Work Phone: 1(704) 978-953904-19-2023 14:48-0400Heart rate76 /minBrett R Kuns Work Phone: mp512-9829HC-Geaql [facility] [address] DO Work Phone: 1(232) 236-380904-19-2023 14:48-0400Systolic blood kilhwqtp464 mm[Hg] Charles R Kuns Work Phone: mp146-7668AR-Jrghg [facility] DO Work Phone: 1(581) 119-256703-27-2023 10:00-0400Body uvyqdu075.1 cmBrett Kuns Other [employer] Other 03-27-2023 10:00-0400Body mass index (BMI) [Ratio] 26.46 kg/h2VrzerCharles Bazzi Other [employer] Other 03-27-2023 10:00-0400Body xlyobt95.12 kgBrepeyton Bazzi Other [employer] Other 03-27-2023 10:00-0400Diastolic blood lxdbzqwy41 mm[Hg] Charlespeyton Bazzi Other [employer] Other 03-27-2023 10:00-0400Respiratory rate16 /minBrepeyton Bazzi Other [employer] Other 03-27-2023 10:00-0107PcM7% (BldA) [Mass fraction]97 % Charlespeyton Bazzi Other [employer] Other 03-27-2023 10:00-0400Systolic blood tbaraztp498 mm[Hg] Charles Alejopacheco Other [employer] Other 11-09-2022 12:45-0500Body yicxbp587.1 cmRobert Mead II Other [employer] Other 11-09-2022 12:45-0500Body mass index (BMI) [Ratio] 28.45 kg/z8Rsbwki Mead [employer] Other [employer] Other 11-09-2022 12:45-0500Body dkrsmo63.57 kgRobert Mead II Other [employer] Other 11-02-2022 11:30-0400Body rilkqo441.1 cmRobert [employer] Other [employer] Other 11-02-2022 11:30-0400Body mass index (BMI) [Ratio] 28.45 kg/f4Tqmzvs [employer] Other [employer] Other 11-02-2022 11:30-0400Body loqoss80.57 kgRobert [employer] Other [employer] Other Encounters Encounter DateEncounter TypeCare ProviderFacilityStart: 20-57-7519gqxyafgabp LAISHA SINGERFacility:[facility]: 03-13-2025 End: 72-71-1348Lidfgviihm hospital visit by physicianLaisha Singer MD Work Phone: ProceduresComment on above:Encounter for follow-up surveillance of rectal cancer [Z08, Z85.048]Start: 03-05-2025 End: 31-31-0758V-mail encounter from Adela Corona MD Work Phone: HematologyStart: 03-05-2025 End: 30-09-2615Wruzmfv encounter procedureTapan Corona MD Work Phone: HematologyComment on above:ConfidentialStart: 03-04-2025 End: 62-84-6320Trpcdapqf Result EncounterCathleen TAY Work Phone: noms External Department UnsolicitedStart: 03-04-2025 End: 55-70-1955Oujhudsgk Result EncounterCathleen TAY Work Phone: noms External Department UnsolicitedStart: 03-03-2025 End: 72-05-7313cpprfdgqcwWheccvoPriscilla Robledo MDFacility:[facility] Start: 02-20-2025 End: 31-38-6983Jtmqqaade to same day surgery centerCierra Lindquist RNColorectal SurgeryComment on above:history of colon cancerStart: 02-20-2025 End: 64-32-0269Gmnqddu encounter Primo Corona MD Work Phone: HematologyComment on above:History of rectal cancer (Primary Dx)Encounter for follow-up surveillance of rectal cancer (Primary Dx); Low anterior resection syndromeStart: 02-20-2025 End: 41-94-4799gzruykmxgsQmjmek Ameena RNColorectal SurgeryStart: 02-19-2025 End: 59-50-8153olcgjboypwZwqiudwg A Wiebusch PT Work Phone: Physical TherapyComment on above:Muscle spasm (Primary Dx)Start: 02-10-2025 End: 87-16-2781bytooguqcwYCEGA ROGER KUNSFacility:[facility] Start: 66-43-3529majuzaesvmCXJYK OPAL BAZZIcility:[facility] Start: 02-10-2025 End: 28-61-9398Xstjkknyro hospital visit by physicianArrival Time Radiology Work Phone: Radiology Pet CTComment on above:History of rectal cancer [Z85.048]Start: 01-28-2025 End: 46-83-3594rnxeypwsueOnqtlunu A Wiebusch PT Work Phone: Physical TherapyComment on above:Muscle spasm (Primary Dx); Low anterior resection syndromeStart: 01-03-2025 End: 77-06-0021Txitoitbr to same day surgery Son Singer MD Work Phone: Colorectal SurgeryComment on above:survey on LARS for Dr Soto: 01-03-2025 End: 74-18-2542T-mail encounter from caregiverLaisha Singer MD Work Phone: Colorectal SurgeryStart: 01-03-2025 End: 22-55-8557Ggftgefti encounterLaisha Singer MD Work Phone: Colorectal SurgeryComment on above:Returning Patient's CallStart: 01-02-2025 End: 68-35-3492Lkosxefwc to same day surgery centerLaisha Singer MD Work Phone: Colorectal SurgeryComment on above:DiarrheaStart: 01-02-2025 End: 43-90-6168xdjdljorsyFomtimv Ban MD Work Phone: Colorectal SurgeryStart: 11-11-2024 End: 07-19-2246dllsbxqrioHipyrxi Vytautas Giedraitis Facility:[facility] Start: 11-05-2024 End: 00-65-4053urfufkmagcEJGUG ROGER KUNSFacility:[facility] Start: 11-05-2024 End: 77-86-6100Gxiaznskr to same day surgery Caro Marie APRN.[employer] Work Phone: Colorectal SurgeryComment on above:ManometryStart: 11-05-2024 End: 09-83-4801Ojgwpzx encounter procedureAle Marie APRN.CNP Work Phone: Colorectal SurgeryStart: 11-04-2024 End: 07-15-4950zqycgfgmilOjzzijg Vytautas Giedrazaida VELASQUEZFacility:[facility] Start: 10-31-2024 End: 78-10-4848eftllqjvhjMEJGP ROGER KUNSFacility:[facility] Start: 10-20-2024 End: 74-47-6760Anxkhbnwe to same day surgery centerLaisha Singer MD Work Phone: Colorectal SurgeryComment on above:My bowel urgencies and weight gainStart: 10-20-2024 End: 93-15-8818scuhbqzcgrLjqjqcn Ban MD Work Phone: Colorectal SurgeryStart: 10-18-2024 End: 29-55-6329yojhwldcfrNadfg Kuns DO Work Phone: [facility] Work Phone: Start: 10-18-2024 End: 11-73-8435Lpydaiy encounter procedureBrepeyton Bazzi DO Work Phone: [facility] Work Phone: Start: 10-18-2024 End: 44-07-0547Thrkwrk encounter procedureBrepeyton Lucios DO Work Phone: [facility] [place] [facility] Start: 10-18-2024 End: 85-09-4030dgbqcndsfyWgmvn Kuns DO Work Phone: [facility] Work Phone: Start: 10-09-2024 End: 34-60-5041scsmnhqzraPVHKW ROGER KUNSFacility:[facility] Start: 10-09-2024 End: 58-45-8153Btvqfc outpatient visit 15 minutesG Monty Hudson MD Work Phone: Radiation OncologyComment on above:Rectal adenocarcinoma (HCC) (Primary Dx)Start: 09-27-2024 End: 03-21-3380Samqxet encounter procedureBrepeyton Bazzi DO Work Phone: [facility] Work Phone: Start: 09-27-2024 End: 38-46-4909zponmteqwtJmgck Kuns DO Work Phone: [facility] Work Phone: Start: 41-83-7463Jki-patient / Non-visitBrepeyton Bazzi DO Work Phone: [facility] G[facility] Work Phone: Start: 09-18-2024 End: 75-47-9201Hwhvwhclj to same day surgery centerBrepeyton Lucios DO Work Phone: [facility] Work Phone: Start: 09-18-2024 End: 19-61-6019guhxelwexoSphcd Kuns DO Work Phone: [facility] Work Phone: Start: 09-09-2024 End: 41-74-9540svvpzteipjDzqly Kuns DO Work Phone: [facility] Work Phone: Start: 09-09-2024 End: 75-90-1747Kulpdyi encounter procedureCharles Bazzi DO Work Phone: [facility] Work Phone: Start: 09-04-2024 End: 52-68-2584jgzavjnpbwMhkqn Kuns DO Work Phone: [facility] Work Phone: Start: 09-04-2024 End: 89-03-2854Mtnuuuq encounter procedureCharles Bazzi DO Work Phone: [facility] Work Phone: Start: 09-03-2024 End: 18-17-3237fvayweapkxXOLOD ROGER KUNSFacility:[facility] Start: 09-03-2024 End: 08-72-2899Egprhmg encounter Primo Corona MD Work Phone: HematologyComment on above:History of rectal cancer (Primary Dx); Rectal cancer (HCC)Start: 08-27-2024 End: 54-91-2472Mayxtecyp encounterGagandeep Ward RNHematologyComment on above: Results, LabStart: 94-00-7438Fvs-patient / Non-visitBrepeyton Bazzi DO Work Phone: [facility] Work Phone: Start: 08-26-2024 End: 19-06-9362Ucumklynf to same day surgery centerCharles Bazzi DO Work Phone: [facility]Start: 08-26-2024 End: 90-01-8433tygopqaqpsSiiaz Kuns DO Work Phone: [facility] Work Phone: Start: 08-20-2024 End: 55-20-2553Xmtangw encounter procedureBrett Kuns DO Work Phone: [facility] Work Phone: Start: 08-20-2024 End: 81-94-9744ggqcbplhpjJnbyk Kuns DO Work Phone: [facility] Work Phone: Start: 30-81-2717Nwexdlhtt for preprocedural cardiovascular examinationCorichard Lim [facility] Physician GroupStart: 08-19-2024 End: 94-38-8195njmedwxusfSFYZJ ROGER KUNSFacility:[facility] Start: 42-25-6286Ore-patient / Non-visitBrett Kuns DO Work Phone: [facility] Work Phone: Start: 08-14-2024 End: 67-22-9701xiihipwwslYujzy Kuns DO Work Phone: [facility] Work Phone: Start: 08-14-2024 End: 66-23-6178Ajiblyy encounter procedureBrett Kuns DO Work Phone: [facility] Work Phone: Start: 07-17-2024 End: 71-13-3379tksygzghjgJtwae Kuns DO Work Phone: [facility] Work Phone: Start: 07-17-2024 End: 93-34-8303Sxyyuti encounter procedureBrett Kuns DO Work Phone: [facility] Work Phone: start: 07-15-2024 End: 22-82-9596zdxepjoqxmAwrzbci Zaina Robledo MDFacility:[facility] Start: 06-25-2024 End: 32-81-7186Sqskrve encounter procedureBrepeyton Alejos DO Work Phone: [facility]Community [facility] Work Phone: Start: 06-11-2024 End: 30-25-7563Pqvmeki encounter procedureBrepeyton Lucios DO Work Phone: [facility] Work Phone: Start: 06-11-2024 End: 44-46-1660Elenqrn encounter procedureBrepeyton Lucios DO Work Phone: [facility]Community [facility] Work Phone: Start: 06-04-2024 End: 53-29-7036Frtxuad encounter procedureBrett Alejos DO Work Phone: [facility] [place] Work Phone: Start: 06-04-2024 End: 38-19-3952tvnuiynldxNbxzy KunsFacility:[facility] Start: 46-28-7976Cwx-patient / Non-visitBrepeyton Alejos DO Work Phone: [facility]Community [facility] Work Phone: Start: 05-31-2024 End: 43-15-0203Mifdwnukk to same day surgery centerBrepeyton Lucios DO Work Phone: [facility] CampusStart: 05-31-2024 End: 17-95-0414otzclnzxcqQeicxym R CalveyFacility:[facility] Hospitaltart: 05-30-2024 End: 77-81-1145Liktylz encounter procedureBrepeyton Lucios DO Work Phone: [facility] Work Phone: Start: 05-30-2024 End: 99-58-2761kitztnedsfCmnfj Kuns DO Work Phone: [facility] Work Phone: Start: 05-23-2024 End: 55-56-9582Ubbbwyysp department patient visitBrett Kuns DO Work Phone: [facility]-Emergency Room Work Phone: Start: 33-94-7379Irq-patient / Non-visitBrett Kuns DO Work Phone: [facility] Work Phone: Start: 05-22-2024 End: 30-84-3156Uhyvwicez department patient visitBrett Kuns DO Work Phone: [facility] Work Phone: Start: 05-08-2024 End: 59-27-4831Dfyoebd encounter procedureTapan Corona MD Work Phone: HematologyComment on above:History of rectal cancer (Primary Dx)Start: 73-32-4399Hvv-patient / Non-visitBrett Kuns DO Work Phone: [facility] GroupW[facility] Work Phone: Start: 05-08-2024 End: 35-92-8203nmmjnntqcfEBOZL KARAMLOUFacility:[facility] HospitalStart: 04-30-2024 Non-patient / Non-visitBrett Kuns DO Work Phone: [facility] GroupJ[facility] [place] Work Phone: Start: 04-23-2024 End: 43-28-9001Vpcksddqy Result EncounterCorey Aliya DO Work Phone: [facility] External Department UnsolicitedStart: 04-23-2024 End: 80-22-9197Divvozlvv Result EncounterCorecristal Pisano DO Work Phone: noms External Department UnsolicitedStart: 04-10-2024 End: 79-78-2751Nejycml encounter Jessica Hudson MD Work Phone: Radiation OncologyComment on above:Rectal adenocarcinoma (HCC) (Primary Dx)Start: 03-25-2024 End: 50-90-9191prbdpcnnpeMacogfs Vytautas Giedraitis MDFacility:[facility] Start: 03-18-2024 End: 58-79-5445izrxzommvgTnqqxxs Vytautas Giedraitis MDFacility:[facility] Start: 02-21-2024 End: 61-18-3639Cutbjgepp Result EncounterCathleen TAY Work Phone: noms External Department UnsolicitedStart: 02-21-2024 End: 89-58-6605Vvtdpflvw Result EncounterCathleen TAY Work Phone: noms External Department UnsolicitedStart: 02-21-2024 Telephone encounterNatmana Carrillo RNHematology/OncologyComment on above: Signatera resultsStart: 02-21-2024 End: 76-41-8171kopqppyrdtDIS RAMEYNot AvailableStart: 02-20-2024 End: 77-01-5560oxvdvqfbebMCCRY A HUDDLESTONNot AvailableStart: 02-07-2024 End: 93-34-7385wyfecafrplYGAGVC VARGAS VNot AvailableStart: 63-08-3784Kicvvrzdb encounterTapan Corona MD Work Phone: Cancer Appts MCComment on above:Future Appointment Refill RequestStart: 02-06-2024 End: 89-12-4292eljcevqvkxSupiq Karamlou MD Work Phone: Hematology/OncologyComment on above:History of rectal cancer (Primary Dx)Start: 02-06-2024 End: 42-16-8929Omsdnqv encounter procedureTapan Corona MD Work Phone: Hematology/OncologyStart: 84-60-5622Wqwtywviy encounterLaisha Singer MD Work Phone: Colorectal SurgeryComment on above:Patient Question Start: 01-12-2024 End: 60-73-3922qbhywvwbokPDJILY PASTOR VNot AvailableStart: 01-09-2024 End: 04-84-8066Rltwejt encounter procedureLaisha Singer MD Work Phone: Colorectal SurgeryComment on above:Follow-up examination after colorectal surgery (Primary Dx); Rectal cancer (HCC); Low anterior resection syndromeStart: 01-09-2024 End: 37-79-7137scupvlpmuvXDAJO A HUDDLESTONNot AvailableStart: 01-08-2024 Telephone encounterColleen Solorio RN Work Phone: Hematology/OncologyComment on above:Care Coordination (Lab question)Start: 01-02-2024 End: 43-57-8634ouhpnhoufrLHHSJ A HUDDLESTONNot AvailableStart: 12-26-2023 End: 58-69-1807mkfqyyhsbdGKVKT A HUDDLESTONNot AvailableStart: 12-12-2023 Telephone encounterTapan Corona MD Work Phone: Radiation OncologyComment on above:Port RemovalStart: 11-24-2023 End: 78-49-1355Trculvr encounter procedureBrandie Salmeron APRN.CNP Work Phone: Colorectal SurgeryComment on above:Follow-up examination after colorectal surgery (Primary Dx)Start: 44-57-5067Shftlvaii to same day surgery centerLaisha Singer MD Work Phone: Colorectal SurgeryComment on above:Sharp, Burning Pain R Hip AreaStart: 08-71-9361gwltyqxuwsUotcymp Ban MD Work Phone: Colorectal SurgeryStart: 49-28-1744Yjljiatas encounter Colleen Solorio RN Work Phone: Hematology/OncologyComment on above:Care Coordination (Hospital d/c follow up call)Start: 11-06-2023 End: 15-37-1764Uyrpiryzal and management of inpatientCHARLES BAZZI [facility]: 75-78-2179Xghvgpivz encounterColleen Solorio RN Work Phone: Hematology/OncologyComment on above:Care Coordination (Lab results)Patient QuestionStart: 43-36-9039Abbcqqtwo to same day surgery centerLaisha Singer MD Work Phone: Colorectal SurgeryComment on above:Frequent Bowel Obstructions/PlanStart: 38-39-6046ojxsweuifcClumudx Ban MD Work Phone: Colorectal SurgeryStart: 14-96-9309Jyx-patient / Non-visitDO Charles Bazzi Work Phone: [facility] Work Phone: Start: 10-26-2023 End: 74-12-0503Mvldjowwyf and management of inpatientDO Charles Bazzi Work Phone: [facility]-[address] [place] [address] Surgical Work Phone: Start: 98-70-9323Almottwub encounterLaisha Singer MD Work Phone: Colorectal SurgeryComment on above:Patient Question; Medication QuestionStart: 10-24-2023 End: 68-09-3180nmzibgzhawEM Charles Bazzi Work Phone: [facility] Work Phone: Start: 10-24-2023 End: 84-63-3133Jkvadsd encounter procedureDO Charles Bazzi Work Phone: [facility] [place] Work Phone: Start: 54-63-1407Gvsopup encounter procedureCcf ProviderWadsworth-Rittman Hospital DepartmentStart: 39-18-0965Ptjcikehb encounterColleen Solorio RN Work Phone: Hematology/OncologyComment on above:Care Coordination (signatera)Start: 10-10-2023 End: 58-81-0848Tqmmvtd encounter procedureDheeraj De León LMT Work Phone: Hematology/OncologyComment on above:Muscle soreness (Primary Dx)Rectal adenocarcinoma (HCC) (Primary Dx)Start: 75-34-9559Rlp-patient / Non-visitDO Charles Bazzi Work Phone: [facility] Work Phone: Start: 10-10-2023 End: 56-00-8012wjbsqkvmfvXrq/Port Gabe Ghassan Work Phone: Hematology/OncologyComment on above:History of rectal cancerHistory of rectal cancer (Primary Dx)Start: 10-02-2023 End: 99-60-1172pcoofwetbiUOAAU B APLINGNot AvailableStart: 09-30-2023 End: 32-84-4896Zhs-patient / Non-visitDO Charles Bazzi Work Phone: [facility] Work Phone: Start: 09-30-2023 End: 37-06-0790Uetlnemzhf and management of inpatientDO Charles Bazzi Work Phone: [facility] [facility] Work Phone: Start: 09-22-2023 End: 12-51-8634Slxubmr encounter procedureBrandie Salmeron APRN.CNP Work Phone: Colorectal SurgeryComment on above:Follow-up examination after colorectal surgery (Primary Dx)Start: 60-40-6843oqimrhbodt Laisha Singer MD Work Phone: Colorectal SurgeryComment on above:Conference recommendationsStart: 85-35-2603I-mail encounter from caregiverLaisha Singer MD Work Phone: [facility] MCStart: 23-85-8992Ekemuhntr encounter Colleen Solorio RN Work Phone: Hematology/OncologyComment on above:Care Coordination (Hospital d/c follow up call)Care Coordination (Follow up appointment)Start: 31-24-2103Vkupztwgs to same day surgery centerLaisha Singer MD Work Phone: Colorectal SurgeryComment on above:Surgery pathology Start: 33-85-5771T-mail encounter from caregiverLaisha Singer MD Work Phone: [facility] MCStart: 40-59-6425Fnvljyfcp encounter Laisha Singer MD Work Phone: Colorectal SurgeryComment on above:Employment Specialist/Program Manager - Other (Tumor board)Start: 52-68-1004Pqp-patient / Non-visitDO Charles Kuns Work Phone: [facility]Sqrrlu [facility] Work Phone: Start: 41-80-3985Ukk-patient / Non-visitDO Charles Kuns Work Phone: [facility]Sqrrls [facility] Work Phone: Start: 31-18-2499Lkz-patient / Non-visitDO Charles Kuns Work Phone: [facility]Sqrrls [facility] Work Phone: Start: 47-90-3462Zlyzmehsy encounterColleen Solorio RN Work Phone: Hematology/OncologyComment on above:Care Coordination (Hospital d/c follow up call)Start: 82-21-3578Ltw-patient / Non-visitDO Charles Kuns Work Phone: [facility]Sqrrla [facility] Work Phone: Start: 08-31-2023 End: 42-61-3814Zghbwtefls and management of inpatientANGELAPEYTON LUCIOPacheco [facility]Start: 71-35-9556Xsq-patient / Non-visitDO Charles Kuns Work Phone: [facility] Work Phone: Start: 81-57-0871Hoe-patient / Non-visitDO Charles Kuns Work Phone: firphiladelphiab Physician [facility] Professional [facility] Work Phone: Start: 89-57-6492Hup-patient / Non-visitDO Charles Kuns Work Phone: [facility] Physician [facility] Work Phone: Start: 38-38-8905Pjh-patient / Non-visitDO Charles Kuns Work Phone: firphiladelphiab Physician [facility] Work Phone: Start: 82-05-4080Are-patient / Non-visitDO Charles Kuns Work Phone: [facility] Physician [facility] Work Phone: Start: 88-08-7945Xhf-patient / Non-visitDO Charles Kuns Work Phone: [facility] Work Phone: Start: 08-25-2023 End: 06-29-9463Fvvzfhrnba and management of inpatientKRISTEN BAN Facility:[facility]art: 08-11-2023 End: 79-43-5895QTWMsxr [facility] 2 Work Phone: Pre AnesthesiaComment on above:Pre-op examination (Primary Dx); Atrial fibrillation, unspecified type (HCC); Essential hypertension; Hyperlipidemia, unspecified hyperlipidemia type; Gastroesophageal reflux disease without esophagitis; Other iron deficiency anemia; Rectal cancer (HCC); Mixed anxiety depressive disorderStart: 08-11-2023 End: 63-75-3743Juaaxnrajmgbv examination doneMary [facility] 2 Work Phone: [facility] Work Phone: Start: 07-25-2023 End: 38-94-1484ljatnqpsuaJTLWVIX [facility] AmbulatoryStart: 07-25-2023 End: 88-62-0867Odzuoe outpatient visit 15 Dillan Rios MD Work Phone: [facility] Sumter CountyComment on above:Other chest pain (Primary Dx); Essential hypertension; Colorectal cancer (CMS/HCC); BMI 24.0-24.9, adult; History of atrial fibrillationStart: 07-04-2023 End: 35-07-5606weaeckwzamYKSEUT VNot AvailableStart: 06-26-2023 End: 76-62-1347Txfzrbfda to same day surgery [facility]tt Tipser Work Phone: [facility] HospitalStart: 06-26-2023 End: 63-16-6849mouispckdvGG Brett Alejo Work Phone: [facility] Work Phone: Start: 91-43-3384Xmzkalktl encounterTifgemma Solorio RN Work Phone: Hematology/OncologyComment on above:Care Coordination (Medication update)Start: 06-20-2023 End: 22-63-8761Lfxsrnz evaluation of patient and reportTifgemma Solorio RN Work Phone: Hematology/OncologyComment on above:Rectal cancer (HCC) (Primary Dx)Start: 06-19-2023 End: 45-34-3707oobzxxxlwdFICWYM VNot AvailableStart: 06-14-2023 End: 06-85-2971enedpgwsbqKfjomFederica Corona MD Work Phone: Hematology/OncologyComment on above:Rectal cancer (HCC) (Primary Dx)Start: 06-14-2023 End: 18-83-0459Gncwcty encounter Primo Corona MD Work Phone: SANDUSKYStart: 06-13-2023 End: 11-63-1761sneetspwmpPYPOTRosa Doyle AvailableStart: 06-12-2023 End: 35-36-2095Ytyczulpjy hospital visit by physicianNunu [address] [employer] [address] Q (I-Stat/1.5t/3t) Work Phone: MRN QComment on above:Rectal cancer (HCC) [C20]Start: 83-25-1969Duddqeaiv encounterKaren (Pss) RepasyRadiologyComment on above: Appointment reminder (Appointment reminder call--spoke with patient--gave directions to the office.)Start: 06-08-2023 End: 26-19-4516Tzixsxbyry hospital visit by Jovon Singer MD Work Phone: ProceduresComment on above:Rectal cancer (HCC) [C20] Start: 05-29-2023 End: 82-42-1095Xfvidvy encounter procedureG Monty Hudson MD Work Phone: Radiation OncologyComment on above:Rectal adenocarcinoma (HCC) (Primary Dx)Start: 05-11-2023 End: 52-26-8257pflstazhhlEexec Kuns Other [facility] [employer] Other Start: 84-03-0955Smgqowkxz encounterBrepeyton EwingG Family Medicine Cast[place]Start: 90-73-7635Mtzqfob encounter procedureG Monty Hudson MD Work Phone: SANDUSKYStart: 22-59-7384Xqzohuypy Oncology NoteG Monty Hudson MD Work Phone: Radiation OncologyComment on above:Completion Note Start: 05-08-2023 End: 92-35-3555Srrvthr encounter procedureG Monty Hudson MD Work Phone: Radiation OncologyComment on above:Rectal adenocarcinoma (HCC) (Primary Dx)Start: 98-81-7494Uwzyfrh encounter procedure Osmany Lee LMTHematology/OncologyComment on above:Muscle soreness (Primary Dx)Start: 05-01-2023 End: 82-62-2803rwbixygsiuNfthh Kuns Other [place] [employer] Other Start: 04-51-4730Kabjgt outpatient visit 25 minutes Charles BazziDel Family Medicine CastaliaStart: 05-01-2023 End: 39-78-2957Loxsird encounter procedureLab/Port Arron Zurita Work Phone: Radiation OncologyComment on above:Dysuria (Primary Dx)Dysuria (Primary Dx); Rectal adenocarcinoma (HCC)Start: 04-28-2023 End: 52-36-7189nkwgxmusifSpifnFederica Corona MD Work Phone: Hematology/OncologyComment on above:Rectal cancer (HCC) (Primary Dx)Start: 04-28-2023 End: 09-36-9909Stgvnkq encounter procedureTapan Corona MD Work Phone: SANDUSKYStart: 81-80-8456Rlcqbzd encounter procedure Osmany Lee LMTHematology/OncologyComment on above:Muscle soreness (Primary Dx)Start: 04-24-2023 End: 48-27-2210Tpxabgx encounter procedureG Monty Hudson MD Work Phone: Radiation OncologyComment on above:Rectal adenocarcinoma (HCC) (Primary Dx)Start: 04-14-2023 End: 40-85-2189rxzbernneeFhfxgFederica Corona MD Work Phone: Hematology/OncologyComment on above:Rectal cancer (HCC) (Primary Dx)Start: 04-14-2023 End: 08-76-3862Auxizsz encounter procedureTapan Corona MD Work Phone: SANDUSKYStart: 04-10-2023 End: 81-75-9422Ravyjpq encounter procedureG Monty Hudson MD Work Phone: Radiation OncologyComment on above:Rectal adenocarcinoma (HCC) (Primary Dx)Start: 33-11-2545Wwldkhudm encounterMylene Carlson) [facility] Radiology ProcedureComment on above:Radiology Pre Procedure InstructionsStart: 74-16-8921buwjfckyezZzLupis Charles Bazzi Facility:[id number]: 04-05-2023 End: 66-97-3429Pqiadvcusw and management of inpatientDO Charles Bazzi Work Phone: [facility] [facility] Work Phone: Start: 04-05-2023 End: 82-67-1125iiwztytimwn encounterDO Charles Bazzi Work Phone: [facility] Work Phone: Start: 08-47-2124Bcqxymvet encounterTifgemma Solorio RN Work Phone: Hematology/OncologyComment on above:Care Coordination (Clinical update)Care Coordination (ER recommendations)Start: 04-03-2023 Telephone encounterTifgemma Solorio RN Work Phone: Hematology/OncologyComment on above:Care Coordination (C1D1 treatment follow up call)Start: 04-03-2023 End: 28-91-6133Indkffd encounter procedureG Monty Hudson MD Work Phone: Radiation OncologyComment on above:Rectal adenocarcinoma (HCC) (Primary Dx)Start: 03-28-2023 End: 04-43-7651uyolzxsuhmYsoc Asaad Other [facility] [employer] Other Start: 83-21-6969Kqpvnzqxr encounterImad AsaadFPG Family Medicine [place]kyStart: 03-22-2023 End: 92-55-5118Zncafkkvtl hospital visit by physicianG Monty Hudson MD Work Phone: Radiology Pet CTStart: 03-22-2023 End: 10-90-9571ryzwkvyqkgOddgmFederica Corona MD Work Phone: Hematology/OncologyComment on above:Rectal cancer (HCC) (Primary Dx)Patient EducationStart: 03-22-2023 End: 29-40-8771Excslff evaluation of patient and reportTifgemma Solorio RN Work Phone: Hematology/OncologyComment on above:Rectal cancer (HCC) (Primary Dx)Refill RequestStart: 03-22-2023 End: 98-73-7707Vkigott encounter Primo Corona MD Work Phone: SANDUSKYComment on above:Rectal adenocarcinoma (HCC) (Primary Dx)Start: 08-63-1475Eyeafhvro Oncology NoteG Monty Hudson MD Work Phone: Radiation OncologyComment on above:Treatment Planning Start: 17-53-8500Avjxmuknk encounterColleen Solorio RN Work Phone: Hematology/OncologyComment on above:Care Coordination (Treatment plan)Start: 03-16-2023 End: 08-69-3358Bcitdsxnll hospital visit by Jovon Singer MD Work Phone: ProceduresStart: 72-15-3035qugmkmhyivPXBKCS MONTY WILDEacility:[facility] Centertart: 03-15-2023 End: 68-06-3288Ewoytjotgn hospital visit by physicianNunu Lares (I-Stat/1.5t) Work Phone: RadiologyComment on above:Rectal adenocarcinoma (HCC) [C20]Start: 03-08-2023 End: 28-03-5311Enedgfq encounter procedureG Monty Hudson MD Work Phone: Radiation OncologyComment on above:Rectal adenocarcinoma (HCC) (Primary Dx)Start: 91-07-0996Guynl abstractingTapan Corona MD Work Phone: Hematology/OncologyStart: 57-01-5978Vuprgnlyq encounterG Monty Hudson MD Work Phone: Radiation OncologyComment on above:OrdersStart: 03-06-2023 End: 62-05-0803Tsqggnaof to same day surgery [facility] Charles Bazzi Work Phone: [facility] Work Phone: Start: 02-28-2023 End: 28-03-9170ylfsxqvjbnOokml Kuns Other [place] [employer] Other Start: 02-99-9120Oxsdokomj encounterBrepeyton Joseph [facility] [place]Start: 02-23-2023 End: 96-76-6386esxvttteqbDpxt Asaad Other [facility] [employer] Other Start: 21-75-8396Yktwfqdon encounterImad AsaadFPG Referral CoordinatorStart: 02-07-2023 End: 16-72-2155ibrkbdgtbyEqmni Kuns Other [place] [employer] Other Start: 53-24-3172Iwoiuprvz encounterBrepeyton Joseph [facility] [place]Start: 11-07-2022 End: 50-53-2394fwkrsvrbiuDH JAIRON ALIYA .Facility:R3Ljppz: 11-03-2022 End: 32-74-4620rqqlftbetqXY JAIRON ALIYA .Facility:E1Jgonn: 10-31-2022 End: 84-32-3321hkxjsqyyniAtpqu Kuns Other [place] [employer] Other Start: 26-61-5001Enrvla outpatient visit 25 minutes Charles Joseph [facility] Cast[place]Start: 77-70-0257Tokggl consultation new/estab patient 40 minCharles Bazzi Work Phone: [phone]-Oswpw [facility] DO Work Phone: Start: 93-89-3620ahhzpnkmdgIaLupis Rios Facility:[id number]: 10-11-2022 End: 84-51-0428xvhddyrthoEkkwz Kuns Other [place] [employer] Other Start: 70-25-0484Kllhppqmv encounterBrett KaylinG Family Medicine [place]Start: 10-03-2022 End: 84-86-1014zaxbhuawtjLbmkg Kuns Other noComposeright Other Start: 69-32-6089Spehom outpatient visit 25 minutes Charles DixieFPG Family Medicine [place]Start: 35-10-1117Zqzdxbvgf encounterBrett AlejosFPG Family Medicine [place]Start: 09-22-2022 End: 36-00-1883xrzpvaamwgIrgew Kuns Other noWintegra [employer] Other Start: 11-70-0549Aoeiyuzun encounterBrett DixieFPG Family Medicine [place]Start: 09-20-2022 End: 11-55-2847bngmorfotfDlxda Kuns Other noCMOSIS nv Other Start: 96-01-8339Svyjghsih encounterBrett KaylinG Family Medicine [place]Start: 09-06-2022 End: 33-93-8825jjbfhtzvnjClzmr Kuns Other noWintegra [employer] Other Start: 05-97-7348Vxfgqrrkk encounterBrett KaylinG Family Medicine [place]Start: 09-05-2022 End: 30-33-6467hmtxoenhguXkyok Kuns Other noWintegra [employer] Other Start: 00-78-4822Blffajoem encounterBrett DixieFPG Family Medicine [place]Start: 09-01-2022 End: 36-68-3334tjkfilkkbaSIUKWM CARLISLEFacility:D6Lpele: 08-18-2022 End: 59-35-1927rlxejhaxtbQqgohw Mead II Other noWintegra [employer] Other Start: 55-28-7080Dvmejp outpatient visit 25 minutes Caroline LEWIS [facility] OrthopedicsStart: 08-17-2022 End: 43-57-3182icpxstpnrnLvlsx Kuns Other [facility] [employer] Other Start: 81-95-8806Uanmtbppv encounterCharles Joseph [facility] [place]Start: 05-25-2022 End: 08-98-3199ghtuunezkxIP Charles Bazzi Work Phone: [facility] Work Phone: Start: 05-25-2022 End: 43-84-5991Ukomtuw encounter procedureDO Charles Bazzi Work Phone: [facility]-Lab [place]Start: 05-20-2022 End: 44-27-6391uqublwzuzqJI Charles Bazzi Work Phone: [facility] Work Phone: Start: 05-20-2022 End: 03-10-2322Ksqwuiu encounter procedureDO Charles Bazzi Work Phone: [facility] Start: 05-18-2022 End: 92-44-1797mczppuhkuiXjnyz Kuns Other [place] [employer] Other Start: 56-98-2123Huoevjptd by computer Ed Bazzi [facility] Ghassan OrthopedicsStart: 22-99-0235Qzafkb outpatient visit 25 minutes Caroline LEWIS [place] OrthopedicsStart: 05-11-2022 End: 13-77-7215arwiytvzxtAxczhl Juan Carlos II Other [facility] [employer] Other Start: 69-32-8873Xjkkfi outpatient visit 25 minutes Caroline LOBATOG [place] OrthopedicsStart: 04-27-2022 End: 60-21-2855dzhnclheioIslsa Dixie Other [facility] [employer] Other Start: 40-68-2706Tvnxpahjc encounterBrepeyton Joseph [facility] [place]Start: 04-20-2022 End: 69-61-0455ukwnfaklquWlrpj Kuns Other [place] [employer] Other Start: 35-54-2234Ptodijnbt encounterBrepeyton EwingG Family Medicine [place]aliaStart: 02-11-2022 End: 45-53-9881aolirdwiygKuzgyq Mead II Other [facility] [employer] Other Start: 98-06-2607Tdswvu outpatient new 45 minutes Caroline Juan Carlos IIFPG [place] OrthopedicsStart: 02-11-2022 End: 01-31-2370Vxqfswo encounter procedureDO Charles Bazzi Work Phone: [facility] [place] [facility] Start: 30-48-4661ZjnvmavznjTHTVE KUNSFacility:1532Patient encounter statusCharles Bazzi Work Phone: [phone]-Gnedr [facility] 250 DO Work Phone: Procedures DateProcedureProcedure DetailPerforming ClinicianStart: 24-62-1790Amkhyybxnjf flx dx w/collj spec when pfrmdKristen Lucrecia VELASQUEZ Work Phone: Start: 45-92-4085FavnygrolilKpenwmd Ban MD Work Phone: Start: 78-25-1537GKA CALCIUMCathleen TAY Work Phone: Start: 53-08-1283NJC Ej TAY Work Phone: Start: 15-24-6051Aefei count complete auto&auto difrntl wbcTapan Corona MD Work Phone: Start: 72-53-0193LTSXC [place] ANORECTAL MANOMETRYLaisha Singer MD Work Phone: Start: 52-89-7060Xraff X-ray of right handCharles Bazzi DO Work Phone: Start: 98-58-7453Jpssj X-ray of right handCharles Bazzi DO Work Phone: Start: 73-35-3105AgouohxhlpuNwjsm Kuns DO Work Phone: Start: 65-09-5477Pwfigji microbial cultureCharles Bazzi DO Work Phone: Start: 53-46-8162Yedariudu microbial cultureCharles Bazzi DO Work Phone: Start: 88-20-1166Mepp stain microscopyCharles Bazzi DO Work Phone: Start: 80-78-6275Rliojsyhmos of interphalangeal joint of fingerCharles Bazzi DO Work Phone: Start: 91-10-9761W-ray of right middle fingerCharles Bazzi DO Work Phone: Start: 28-66-5523Papxfdbxzfphlcma antigen ceaCharles Bazzi DO Work Phone: Comment on above:Carcinoembryonic antigen test is used as an aid in monitoring response to treatment or recurrence in patients with established colorectal, breast, lung, prostatic, pancreatic, and ovarian carcinomas.Clinical correlation is required.The Carcinoembryonic antigen test was performed using the FTL SOLARel DXI paramagnetic particle chemiluminescent immunoassay method. Results obtained with different assay methods or kits cannot be used interchangeably.Start: 47-55-0654Aygjmry microbial cultureCharles Bazzi DO Work Phone: Start: 94-38-3803Rnwtievsc microbial cultureCharles Bazzi DO Work Phone: Start: 16-52-3501Szcd stain microscopyCharles Bazzi DO Work Phone: Start: 80-94-7618Siajwbfv and drainage of lower extremityBrepeyton Bazzi DO Work Phone: Start: 90-79-7058Dzjyi X-ray of right handCharles Bazzi DO Work Phone: Start: 58-11-2306Wxwpmtmj identified in Blood by CultureCharles Bazzi DO Work Phone: Start: 79-52-5441Dwxxipqt identified in Blood by CultureCharles Bazzi DO Work Phone: Start: 28-02-3450Qwihjyile ID (NA Multiplex Assay) Charles Bazzi DO Work Phone: Start: 63-39-5012E-ray of right middle fingerCharles Bazzi DO Work Phone: Start: 78-25-7206Ymjhdoitxashikde antigen ceaCharles Bazzi [employer] Work Phone: Comment on above:Carcinoembryonic antigen test is used as an aid in monitoring response to treatment or recurrence in patients with established colorectal, breast, lung, prostatic, pancreatic, and ovarian carcinomas.Clinical correlation is required.The Carcinoembryonic antigen test was performed using the Tony Gradient X Unicel DXI paramagnetic particle chemiluminescent immunoassay method. Results obtained with different assay methods or kits cannot be used interchangeably.Start: 56-38-0073QX TOMOSYNTHESIS SCREENING Lucio Pisano DO Work Phone: Start: 38-77-1568CocivfmkckyNax Ramey PA Work Phone: Start: 88-80-5269GLA,APTIMA HPV,AGE GDLNCathleen TAY Work Phone: Start: 01-12-2024H/O: ileostomyIleostomy Aly TAY Work Phone: Start: 44-65-6550Czokwvyg screenKRISTEN BANComment on above:Order Comment: Specimen Type: BLOOD SPECIMENOrdering Facility: [facility] Address:[address] [place], [place] [address]Performed By: #### TSCR ####[facility] [id number] [place] [address] [place] AMERICAStart: 69-12-2573Nlzsaeeybu radiography of abdomen DO Charles Bazzi Work Phone: Start: 59-79-5484PA angiography of thoraxDO Charles Bazzi Work Phone: Start: 03-35-4489Ovnkqgvi tomography of abdomen and pelvis with contrastDO Charles Bazzi Work Phone: Start: 67-56-7677Okcpi cultureDO Charles Bazzi Work Phone: Start: 13-34-6125Tntej count complete auto&auto difrntl Pina Corona MD Work Phone: Comment on above:Carcinoembryonic antigen test is used as an aid in monitoring response to treatment or recurrence in patients with established colorectal, breast, lung, prostatic, pancreatic, and ovarian carcinomas.Clinical correlation is required.The Carcinoembryonic antigen test was performed using the Tony Huffman Unicel DXI paramagnetic particle chemiluminescent immunoassay method. Results obtained with different assay methods or kits cannot be used interchangeably.Start: 58-65-6613KO of abdomen and pelvis without contrastDO Charles Bazzi Work Phone: Start: 93-95-9918Saqgl chest X-rayDO Charles Bazzi Work Phone: Start: 64-00-6831MY Infusaport Insertion/Removal (Not Applicable)DO Charles Bazzi Work Phone: Start: 60-46-8126Rsw pelvis w/o & w/contrast material Tapan Corona MD Work Phone: Start: 80-50-9751Qgtgyrpzknfub flx dx w/collj spec br/wa if pfrmdCcf ProviderStart: 21-50-9245QK angiography of thoraxDO Charles Bazzi Work Phone: Start: 78-49-2861Djwipxrqldzpr flx dx w/collj spec br/wa if pfrmdKristen Lucrecia VELASQUEZ Work Phone: Start: 53-06-0069Cxo pelvis w/o & w/contrast materialG Monty Hudson MD Work Phone: Start: 28-41-5440Bsqfuury tomography of abdomen and pelvis with contrastDO Charles Bazzi Work Phone: Start: 39-82-4616QY of thorax with contrastDO Charles Bazzi Work Phone: Start: 63-55-3772DxheofdxsoyCL Charles Bazzi Work Phone: Start: 61-32-5135Jdtdiuuwd mammography of bilateral breastsDO Charles Bazzi Work Phone: Start: 79-14-8370Fbihlx X-rayDO Charles Bazzi Work Phone: Start: 36-08-4401D-ray of both kneesDO Charles Bazzi Work Phone: Start: 77-04-2179RkwuvwlrttfUnd Lenora TAY Work Phone: Start: 23-37-0237Perqs colonoscopyCharles R Dixie Work Phone: CholecystectomyCharles R Alejopacheco Work Phone: Excision of melanomaBrepeyton R Dixie Work Phone: H/O: ileostomyIleostomy statusDO Charles Bazzi Work Phone: NeuroplastyBrett R Dixie Work Phone: Operative procedure on ankleBrepeyton R Dixie Work Phone: Plan of Treatment DateCare ActivityDetailAuthorStart: 22-66-9609GKT Vaccine (1 - 1-dose 75+ series)RSV Vaccine (1 - 1-dose 75+ series)[facility] 07-27-2028 Screening for malignant neoplasm of colonOhioHealth Dublin Methodist Hospitaltart: 06-08-2028 Colorectal Cancer ScreeningColorectal Cancer ScreeningOhioHealth Dublin [facility] Hospitaltart: 16-93-9767Apssteniz for malignant neoplasm of colonOhioHealth Dublin Methodist Hospitaltart: 96-08-0852IgdjrfrzzyxwwRwybmfmasmqpoVmvcuuvhr ClinicStart: 08-69-5160Ogsdobqbot Cancer ScreeningColorectal Cancer ScreeningOhioHealth Dublin Methodist Hospitaltart: 03-16-2028 SIGMOIDOSCOPYSIGMOIDOSCOPYOhioHealth [facility] Hospitaltart: 18-03-2202Paeyjdhr Screening Diabetes ScreeningOhioHealth Dublin [facility] Hospitaltart: 70-59-7151Gpikfjve ScreeningDiabetes ScreeningOhioHealth Dublin [facility] Hospitaltart: 03-54-8404Rzkewwee ScreeningDiabetes Screening [facility]: 88-88-1767Bndjztkh ScreeningDiabetes ScreeningOhioHealth Dublin [facility] Hospitaltart: 84-93-5788Gjmoxtfx ScreeningDiabetes ScreeningWadsworth-Rittman Hospital Start: 71-48-8055Sttotjzv ScreeningDiabetes ScreeningOhioHealth Dublin Methodist Hospitaltart: 05-11-8765Xjyagcxd ScreeningDiabetes ScreeningOhioHealth Dublin [facility] Hospitaltart: 09-04-2026 Diabetes ScreeningDiabetes ScreeningOhioHealth [facility] Hospitaltart: 83-70-2565Ynbhyjbo ScreeningDiabetes ScreeningOhioHealth Dublin [facility] Hospitaltart: 93-73-9972Ivpggeic Screening Diabetes ScreeningOhioHealth [facility] Hospitaltart: 72-20-8881Qrrusylc ScreeningDiabetes ScreeningOhioHealth Dublin [facility] Hospitaltart: 60-60-7250Qltiobve ScreeningDiabetes Screening [facility]: 91-15-5248Mdrrqzsq ScreeningDiabetes ScreeningOhioHealth Dublin Methodist Hospitaltart: 63-28-9157Bngwukhhb for malignant neoplasm of colonColonoscopy [facility]: 34-84-0322MZ Controlled (<130/80)BP Controlled (<130/80) [facility]: 08-23-2025 End: 19-26-5677Hrjwsueuqnixjomg Ag [Mass/volume] in Serum or Plasma CARCINOEMBRYONIC ANTIGEN Lab Routine History of rectal cancer Expected: 08/23/2025 (Approximate), Expires: 11/22/2025[facility] ClinicComment on above: Expected: 08/23/2025 (Approximate), Expires: 11/22/2025Start: 08-23-2025 End: 74-00-2780VCP W Auto Differential panel - BloodCOMPLETE BLOOD COUNT AND DIFFERENTIAL Lab Routine History of rectal cancer Expected: 08/23/2025 (Jeff roximate), Expires: 11/22/2025[facility] ClinicComment on above:Expected: 08/23/2025 (Approximate), Expires: 11/22/2025Start: 08-23-2025 End: 88-36-9096Msiresbsjdutn metabolic 2000 panel - Serum or PlasmaCOMPREHENSIVE METABOLIC PANEL Lab Routine History of rectal cancer Expected: 08/23/2025 (Approximate), Expires: 11/22/2025[facility] ClinicComment on above:Expected: 08/23/2025 (Approximate), Expires: 11/22/2025Start: 08-23-2025 End: 89-03-7545KINY SEND OUT TST 1MISC SEND OUT TST 1 Lab Routine History of rectal cancer Expected: 08/23/2025 (Approximate), Expires: 11/22/2025[facility] Work Phone: Comment on above:Expected: 08/23/2025 (Approximate), Expires: 11/22/2025Start: 08-21-2025 End: 05-25-2864Ztslxqq encounter ybyxlwhmw29/12/2026 12:00 PM EST Visit (SP) Office Hematology [address] [place], [place] [id number] Tapan Corona MD [address] [place] [address] F/U with Dr. Corona 08/23/25, labs 1 week prior HematologyComment on above:F/U with Dr. 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]Start: 04-16-2025 End: 02-42-9539Vlxxfys encounter /08/2025 9:45 AM EDT Office Visit Radiation Oncology [address] [place] [address] Del Hudson MD [address] [address] Return in about 6 monthsRadiation OncologyComment on above: Return in about 6 monthsStart: 04-02-2025 End: 20-11-5025cxzcxyyqva52/24/2025 1:00 PM EDT OT/PT/Speech Visit Physical Therapy [address] [place] [address] Chapincito Anthony, PT [address] [place] [address] 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]Physical TherapyComment on above: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]Start: 03-13-2025 End: 84-08-2085Imhjrre encounter rwaxfqzoq63/04/2025 8:30 AM EDT Appointment Procedures [address] [place] [address] [place] [address] [place] [address] History of colon cancer [Z85.038]ProceduresComment on above:History of colon cancer [Z85.038]Start: 03-12-2025 End: 45-94-2514mvuvdwgjiu53/03/2025 2:45 PM EDT OT/PT/Speech Visit Physical Therapy [address] [place] [address] Chapincito Anthony, PT [address] [place] [address] 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]Physical TherapyComment on above: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]Start: 76-30-7638Dbpgbnfgn vaccinationInfluenza Vaccine (#1)[facility]: 02-20-2025 End: 86-44-2646Xnexvqw encounter procedureColorectal SurgeryComment on above:Est Pt: 1 yr f/up, robotic LAR, DLI, surgery 08/25/23RECTAL CAStart: 02-19-2025 End: 79-81-8215krqgqzpgfo45/13/2025 1:00 PM EDT OT/PT/Speech Visit Physical Therapy [address] [place] [address] Chapincito Anthony, PT [address] [place] [address] 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]Physical TherapyComment on above: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]Start: 02-13-2025 End: 38-67-7160Hbzophauiwlshkcw Ag [Mass/volume] in Serum or Plasma CARCINOEMBRYONIC ANTIGEN Lab Routine History of rectal cancer Rectal cancer (HCC) Expected: 02/13/2025 (Approximate), Expires: 05/15/2025[facility] Comment on above:Expected: 02/13/2025 (Approximate), Expires: 05/15/2025Start: 02-13-2025 End: 66-71-6902INN W Auto Differential panel - BloodCOMPLETE BLOOD COUNT AND DIFFERENTIAL Lab Routine History of rectal cancer Rectal cancer (HCC) Expected: 02/13/2025 (Approximate), Expires: 05/15/2025[facility] Work Phone: Comment on above:Expected: 02/13/2025 (Approximate), Expires: 05/15/2025Start: 02-13-2025 End: 89-58-4537Fbqppuskkzqhb metabolic 2000 panel - Serum or PlasmaCOMPREHENSIVE METABOLIC PANEL Lab Routine History of rectal cancer Rectal cancer (HCC) Expected: 02/13/2025 (Approximate), Expires: 05/15/2025[facility] HospitalComment on above:Expected: 02/13/2025 (Approximate), Expires: 05/15/2025Start: 02-10-2025 End: 65-80-1687Hjbctnr encounter rilzxmlhs35/04/2025 1:15 PM EDT Appointment Radiology Pet CT [address] [address] CT CAP W IV CONRadiology Pet CTComment on above:CT CAP W IV CONStart: 01-28-2025 End: 79-48-7509paqoitxfii01/22/2025 11:30 AM EDT OT/PT/Speech Visit Physical Therapy [address] [place] [address] Chapincito Anthony, PT [address] [place] [address] 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]Physical TherapyComment on above: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]Start: 12-31-2024 End: 51-45-8649Vkvzrxv encounter hxcyzsdox14/24/2025 9:00 AM EDT Office Visit [facility] [address] [place] [id number] Oscar Valle, DO [address] [place] [address] [facility]Start: 12-24-2024 End: 03-39-9128xkmmvieypi45/17/2025 11:30 AM EDT OT/PT/Speech Visit Physical Therapy [address] [place] [address] Chapincito Anthony, PT [address] [place] [address] 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 Ruby Memorial HospitalStart: 10-31-2024 End: 59-84-6277Wpmasjw encounter ftproyekh09/24/2025 9:00 AM EDT Office Visit Colorectal Surgery [address] [place] [address] [place] [address] [place], [place] [phone] Pt requesting to see Dr. Orly ambrose messageColorectal SurgeryComment on above:Pt requesting to see Dr. Orly ambrose messageStart: 80-96-3015Shaju X-ray of right handXR hand RT min 3V*[facility]: 29-87-3195FY Hand - right GE 3 [facility]: 68-01-7584HY Controlled (<130/80)BP Controlled (<130/80)[facility]: 10-09-2024 End: 19-90-1892Bswryxg encounter procedureRadiation OncologyComment on above: followupStart: 51-96-2256Rzbwu X-ray of right handXR hand RT min 3V*[facility]: 10-36-8714GQ Hand - right GE 3 [facility]: 08-00-7892XH Controlled (<130/80)BP Controlled (<130/80)[facility]: 93-89-6230XahvckdleDayton Children'S Hospital Start: 09-03-2024 End: 07-84-7295ORTC SEND OUT TST 1MISC SEND OUT TST 1 Lab Routine History of rectal cancer Rectal cancer (HCC) Expected: 09/03/2024, Expires: 12/03/2024 [facility] HospitalComment on above:Expected: 09/03/2024, Expires: 12/03/2024Start: 09-03-2024 End: 63-43-2885Wbsyvr-up ckswqghja28/25/2025 1:45 PM EST Visit (SP) Office Hematology [address] [place] [address] Tapan Corona MD [address] [place] [address] Follow up in AugustHematologyComment on above:Follow up in AugustStart: 79-24-2470Ksbfzwd CultureAerobic CultureGuernsey Memorial Hospitaltart: 30-73-0615Apzwerayb CultureAnaerobic CultureGuernsey Memorial Hospitaltart: 79-49-3165Lxrxadhvjaa observation [Identifier] in Unspecified specimen by Gram stainGuernsey Memorial Hospitaltart: 57-16-8758SqjveeoygGuernsey Memorial Hospitaltart: 32-45-4094KsnuworniGuernsey Memorial Hospitaltart: 00-15-8603ZjsxfdrvpGuernsey Memorial Hospitaltart: 62-71-8089T-ray of right middle fingerXR finger RT 3rd digitGuernsey Memorial Hospitaltart: 18-03-9859CY Finger third - right ViewsGuernsey Memorial Hospitaltart: 08-14-2024 End: 53-13-7122Hdcfhdtwpzjhvmkw Ag [Mass/volume] in Serum or Plasma CARCINOEMBRYONIC ANTIGEN Lab Routine History of rectal cancer Expected: 08/14/2024 (Approximate), Expires: 11/13/2024[facility] ClinicComment on above: Expected: 08/14/2024 (Approximate), Expires: 11/13/2024Start: 08-14-2024 End: 09-17-0144KLP W Auto Differential panel - BloodCOMPLETE BLOOD COUNT AND DIFFERENTIAL Lab Routine History of rectal cancer Expected: 08/14/2024 (Jeff roximate), Expires: 11/13/2024[facility] Work Phone: Comment on above:Expected: 08/14/2024 (Approximate), Expires: 11/13/2024Start: 08-14-2024 End: 74-56-6740Pjkkamfyxwqsp metabolic 2000 panel - Serum or PlasmaCOMPREHENSIVE METABOLIC PANEL Lab Routine History of rectal cancer Expected: 08/14/2024 (Approximate), Expires: 11/13/2024[facility] ClinicComment on above:Expected: 08/14/2024 (Approximate), Expires: 11/13/2024Start: 08-14-2024 End: 77-32-3116VWQZ SEND OUT TST 1MISC SEND OUT TST 1 Lab Routine History of rectal cancer Expected: 08/14/2024 (Approximate), Expires: 11/13/2024[facility] ClinicComment on above:Expected: 08/14/2024 (Approximate), Expires: 11/13/2024 Start: 12-82-4771NJ Controlled (<130/80)BP Controlled (<130/80)[facility] Start: 69-62-0819Anhvlqs Directive DiscussionAdvance Directive Discussion [facility]: 05-31-2024 End: 23-04-6237PhvlpxykhGuernsey Memorial Hospitaltart: 72-96-4945Ogjcu X-ray of right handXR hand RT min 3V*[facility]: 40-72-4791UA Hand - right GE 3 ViewsGuernsey Memorial Hospitaltart: 05-23-2024 Bacteria identified in Blood by CultureBlood CultureGuernsey Memorial Hospitaltart: 21-90-4055XpiizifsfGuernsey Memorial Hospitaltart: 05-22-2024 Bacteria identified in Blood by CultureBlood CultureGuernsey Memorial Hospitaltart: 05-22-2024 End: 05-33-6625SvqbjfvfoGuernsey Memorial Hospitaltart: 05-08-2024 End: 82-10-5703Qnmydkjidhhxxidl Ag [Mass/volume] in Serum or Plasma CARCINOEMBRYONIC ANTIGEN Lab Routine History of rectal cancer Expected: 05/08/2024 (Approximate), Expires: 08/07/2024[facility] ClinicComment on above: Expected: 05/08/2024 (Approximate), Expires: 08/07/2024Start: 05-08-2024 End: 00-52-0132ZMZ W Auto Differential panel - BloodCOMPLETE BLOOD COUNT AND DIFFERENTIAL Lab Routine History of rectal cancer Expected: 05/08/2024 (Jeff roximate), Expires: 08/07/2024[facility] Work Phone: Comment on above:Expected: 05/08/2024 (Approximate), Expires: 08/07/2024Start: 05-08-2024 End: 72-22-2606Fkrnfyoflxknu metabolic 2000 panel - Serum or PlasmaCOMPREHENSIVE METABOLIC PANEL Lab Routine History of rectal cancer Expected: 05/08/2024 (Approximate), Expires: 08/07/2024[facility] ClinicComment on above:Expected: 05/08/2024 (Approximate), Expires: 08/07/2024Start: 05-08-2024 End: 81-99-6452XMKE SEND OUT TST 1MISC SEND OUT TST 1 Lab Routine History of rectal cancer Expected: 05/08/2024 (Approximate), Expires: 5C[facility] ClinicComment on above:Expected: 05/08/2024 (Approximate), Expires: 08/07/2024 Start: 05-08-2024 End: 76-07-8659Vtaiqv-up kfxsjowjo60/30/2024 1:45 PM EDT Visit (SP) Office Hematology [address] [place] [address] Tapan Corona MD [address] [place] [address] 3 month follow upHematologyComment on above:3 month follow up Start: 05-08-2024 End: 25-98-5657Bzbpjdf encounter mjazahcwl24/30/2024 1:30 PM EDT Results Only [facility] [address] [facility], [id number] labs [facility] Draw StationComment on above:labs [facility] hospitaluStart: 04-10-2024 End: 75-21-2741Dyzlfkb encounter iswgjuaro62/02/2024 10:15 AM EDT Office Visit Radiation Oncology [address] [address] Del Hudson MD [address] [place] [address] followupRadiation OncologyComment on above:followupStart: 49-81-7507Kbjjz-19 Vaccine ()Covid-19 Vaccine ( season)[facility]: 76-34-7701Psvdq-19 Vaccine () Covid-19 Vaccine ()[facility]: 98-77-5690Vrlmpepwc [facility]: 02-13-2024 End: 47-11-1184Rrzqxsz encounter yohicmsub09/06/2024 1:20 PM EDT Office Visit Colorectal Surgery [address] [place], [place] [id number] [place] [address] [place] [address] Est patient, 3 month follow up, , robotic LAR, DLI, surgery 08/25/23Colorectal SurgeryComment on above:Est patient, 3 month follow up, , robotic LAR, DLI, surgery 08/25/23Start: 02-06-2024 End: 83-11-2383Nnkahv-up zcfwupbwy64/30/2024 11:15 AM EDT Visit (SP) Office Hematology/Oncology [address] [place] [address] [place] [address] Tapan Corona MD [address] [place] [address] 3 month follow up SignateraHematology/OncologyComment on above:3 month follow up SignateraStart: 02-06-2024 End: 22-89-6670Vsqndhq encounter cntnmgynw45/30/2024 11:00 AM EDT Office Visit [facility] [address] [place] [address] [place] [address] labsNortBeaumont Hospital LaboratoryComment on above:labsStart: 01-31-2024 End: 90-23-6295Dvigla-up encounterHematology/OncologyComment on above:3 month follow up SignateraStart: 01-26-2024 End: 89-94-1117Ewergnn encounter vtwvaclmw53/19/2024 11:00 AM EDT Office Visit [place] [address] [facility] [address] [place] [phone] Marcos Rios MD [address] [facility] [address] [place] [address] [facility] CountyStart: 01-16-2024 End: 40-30-8376Fuoanb-up encounterHematology/OncologyComment on above:3 month follow up SignateraStart: 01-09-2024 End: 82-70-9717Fiistny encounter wymrzyhul83/02/2024 2:20 PM EDT Office Visit Colorectal Surgery [address] [place] [address] [place] [address] [place], [place] [id number] Est patient, 3 month follow up, , robotic LAR, DLI, surgery 08/25/23Colorectal SurgeryComment on above:Est patient, 3 month follow up, , robotic LAR, DLI, surgery 08/25/23Start: 01-09-2024 End: 38-87-2214Dabrpmrcrcsxdixl Ag [Mass/volume] in Serum or PlasmaCEA BLD Lab Routine History of rectal cancer Expected: 01/09/2024 (Approximate), Expires: 04/09/2024[facility] Work Phone: Comment on above:Expected: 01/09/2024 (Approximate), Expires: 04/09/2024Start: 01-09-2024 End: 50-38-3126QSL W Auto Differential panel - BloodCBC + DIFF Lab Routine History of rectal cancer Expected: 01/09/2024 (Approximate), Expires: 04/09/2024 [facility] Work Phone: Comment on above:Expected: 01/09/2024 (Approximate), Expires: 04/09/2024Start: 01-09-2024 End: 99-10-6558Bbsykkhloysat metabolic 2000 panel - Serum or PlasmaCOMP METABOLIC PANEL Lab Routine History of rectal cancer Expected: 01/09/2024 (Approximate), Expires: 04/09/2024[facility] Work Phone: Comment on above:Expected: 01/09/2024 (Approximate), Expires: 04/09/2024Start: 01-09-2024 End: 18-02-1946NPUS SEND OUT TST 1MISC SEND OUT TST 1 Lab Routine History of rectal cancer Expected: 01/09/2024 (Approximate), Expires: 04/09/2024[facility] Work Phone: Comment on above:Expected: 01/09/2024 (Approximate), Expires: 04/09/2024Start: 01-09-2024 End: 29-84-0233yfrmzmnvhu04/02/2024 10:00 AM EDT Results Only [facility] [address] [place] [address] RkelpBeaumont Hospital LaboratoryStart: 11-30-2023 End: 51-67-4481Kiiyxld encounter yfdubzewz69/23/2024 1:00 PM EDT Office Visit Colorectal Surgery [address] [place] [address] [place] [address] [place] [address] Est pt: 3 mo f/up, robotic LAR, DLI,Colorectal SurgeryComment on above:Est pt: 3 mo f/up, robotic LAR, DLI,Start: 11-24-2023 End: 08-58-7815Ddmzmus encounter yxfptqaaf90/17/2024 3:40 PM EDT Office Visit Colorectal Surgery [address] [facility] [address] [place], [place] [phone] Brandie Salmeron APRN.[employer] [address] [facility] [address] [place] [address] PostOp: Ileostomy Closure,Colorectal SurgeryComment on above:PostOp: Ileostomy Closure,Start: 11-07-2023 End: 47-75-9711Usctrnidreufuxtv Ag [Mass/volume] in Serum or PlasmaCEA BLD Lab Routine History of rectal cancer Expected: 11/07/2023 (Approximate), Expires: 02/06/2024[facility] Work Phone: Comment on above:Expected: 11/07/2023 (Approximate), Expires: 02/06/2024Start: 11-07-2023 End: 46-56-5646Vsxsufs encounter /30/2024 10:20 AM EDT Office Visit Colorectal Surgery [address] [place] [address] [place] [address] [place], [place] [id number] Est patient, hospital follow up, SBO n0Cpsuknnuzx Surgery Comment on above:Est patient, hospital follow up, SBO u0Jymwb: 10-28-2023 [facility]: 41-06-7075Nqyjijgugzajpf of prophylactic treatmentGuernsey Memorial Hospitaltart: 26-46-6269LhbawuhgqGuernsey Memorial Hospitaltart: 64-16-5176Pdlsbtvjoj radiography of abdomenGuernsey Memorial Hospitaltart: 85-63-9550Ahqsufei to general surgeonGuernsey Memorial Hospitaltart: 23-14-3767Wgkdzliy admissionGuernsey Memorial Hospitaltart: 64-33-6333AxqiyuqtcGuernsey Memorial Hospitaltart: 56-11-9371ZA angiography of thoraxCT angio chest PE protocolGuernsey Memorial Hospitaltart: 71-40-5937BH ChestGuernsey Memorial Hospitaltart: 25-73-8489Czbluvid tomography of abdomen and pelvis with contrastCT abdomen pelvis w [facility]: 66-28-1367UW Abdomen and Pelvis W contrast IVFSelect Medical Specialty Hospital - Cantontart: 44-69-6416Rmopsrjv identified in Blood by CultureGuernsey Memorial Hospitaltart: 10-25-2023 Bacteria identified in Urine by CultureGuernsey Memorial Hospitaltart: 15-99-7648Bjipi culture for bacteria, including anaerobic screenBlood Culture [facility]tart: 10-10-2023 End: 03-58-4910EBGZ SEND OUT TST 1CCl[facility]ont [facility] Work Phone: Comment on above:Expected: 10/10/2023, Expires: 01/09/2024Start: 15-72-1697EhxyrzzsvGuernsey Memorial Hospitaltart: 09-30-2023 Referral to general surgeonGuernsey Memorial Hospitaltart: 09-30-2023 Hospital admissionGuernsey Memorial Hospitaltart: 28-83-4218IS Abdomen and Pelvis WO contrastGuernsey Memorial Hospitaltart: 21-37-1375DR of abdomen and pelvis without contrastCT abdomen pelvis wo [facility]: 08-11-2023 End: 94-94-4474AKFHPKZ BLOOD TYPESt. [facility] Work Phone: Comment on above:Expected: 08/11/2023, Expires: 11/10/2023Start: 99-42-2094Ceeqevw Directive DiscussionAdvance Directive DiscussionOhioHealth Dublin Methodist Hospitaltart: 07-06-2023 End: 12-10-6533Cixrcbaeudlakzwc Ag [Mass/volume] in Serum or PlasmaCEA BLD Lab Routine Rectal cancer (HCC) Expected: 07/06/2023, Expires: 10/05/2023[facility] Work Phone: Comment on above:Expected: 07/06/2023, Expires: 10/05/2023Start: 07-06-2023 End: 02-38-9560TPN W Auto Differential panel - BloodCBC + DIFF Lab Routine Rectal cancer (HCC) Expected: 07/06/2023, Expires: 10/05/2023[facility] Work Phone: Comment on above:Expected: 07/06/2023, Expires: 10/05/2023Start: 07-06-2023 End: 75-28-9644Lnwcvphmtgzsz metabolic 2000 panel - Serum or PlasmaCOMP METABOLIC PANEL Lab Routine Rectal cancer (HCC) Expected: 07/06/2023, Expires: 10/05/2023[facility] Work Phone: Comment on above:Expected: 07/06/2023, Expires: 10/05/2023Start: 07-06-2023 End: 34-56-7592Qisaamci [Mass/volume] in Serum or PlasmaFERRITIN BLD Lab Routine Rectal cancer (HCC) Expected: 07/06/2023, Expires: 06/14/2024[facility] Work Phone: Comment on above:Expected: 07/06/2023, Expires: 06/14/2024Start: 07-06-2023 End: 48-63-3491Yrfv and Iron binding capacity panel - Serum or PlasmaIRON + TIBC Lab Routine Rectal cancer (HCC) Expected: 07/06/2023, Expires: 06/14/2024 [facility] Work Phone: Comment on above:Expected: 07/06/2023, Expires: 06/14/2024Start: 65-84-8684AejsqnosoGuernsey Memorial Hospitaltart: 06-26-2023 [facility]: 06-09-2023 End: 34-85-0508Ndxeoqvmtrnhgzdk Ag [Mass/volume] in Serum or PlasmaCEA BLD Lab Routine Rectal cancer (HCC) Expected: 06/09/2023 (Approximate), Expires: 09/08/2023[facility] Work Phone: Comment on above:Expected: 06/09/2023 (Approximate), Expires: 09/08/2023Start: 06-09-2023 End: 77-47-5425LXZ W Auto Differential panel - BloodCBC + DIFF Lab Routine Rectal cancer (HCC) Expected: 06/09/2023 (Approximate), Expires: 09/08/2023 [facility] Work Phone: Comment on above:Expected: 06/09/2023 (Approximate), Expires: 09/08/2023Start: 06-09-2023 End: 94-50-9269Utowehutnyjvj metabolic 2000 panel - Serum or PlasmaCOMP METABOLIC PANEL Lab Routine Rectal cancer (HCC) Expected: 06/09/2023 (Approximate), Expires: 09/08/2023[facility] Work Phone: Comment on above:Expected: 06/09/2023 (Approximate), Expires: 09/08/2023Start: 06-09-2023 End: 07-69-5812Fxb pelvis w/o & w/contrast materialMRI RECTUM WO/W IVCON Radiology Routine Rectal cancer (HCC) Expected: 06/09/2023 (Approximate), Expi res: 05/27/2024[facility] Work Phone: Comment on above:Expected: 06/09/2023 (Approximate), Expires: 05/27/2024Start: 04-28-2023 End: 29-41-4685UXH W Auto Differential panel - BloodCBC + DIFF Lab Routine Rectal cancer (HCC) Expected: 04/28/2023 (Approximate), Expires: 06/28/2023 [facility] Work Phone: Comment on above:Expected: 04/28/2023 (Approximate), Expires: 06/28/2023Start: 04-28-2023 End: 61-66-3051Hvvkpkvnvdpco metabolic 2000 panel - Serum or PlasmaCOMP METABOLIC PANEL Lab Routine Rectal cancer (HCC) Expected: 04/28/2023 (Approximate), Expires: 06/28/2023[facility] Work Phone: Comment on above:Expected: 04/28/2023 (Approximate), Expires: 06/28/2023Start: 80-86-3945PucnyofisGuernsey Memorial Hospitaltart: 53-70-4937MbtnnacdtGuernsey Memorial Hospitaltart: 43-62-3471Ukhgkogf to oncologistGuernsey Memorial Hospitaltart: 79-30-0085LlfxtbxteOhiohealth Pickerington Methodist Hospital CenterStart: 31-99-1222IiyolnjuoOhiohealth Pickerington Methodist Hospital CenterStart: 26-43-6573Tpeyrjbs to cardiologistOhiohealth Pickerington Methodist Hospital CenterStart: 84-25-6471Pdukjxrw admissionOhiohealth Pickerington Methodist Hospital CenterStart: 04-05-2023 [facility] CenterStart: 04-05-2023 End: 75-69-6843HRZ W Auto Differential panel - BloodCBC + DIFF Lab Routine Rectal cancer (HCC) Expected: 04/05/2023 (Approximate), Expires: 06/05/2023 [facility] Work Phone: Comment on above:Expected: 04/05/2023 (Approximate), Expires: 06/05/2023Start: 04-05-2023 End: 70-68-6093Kbyatvpcatorl metabolic 2000 panel - Serum or PlasmaCOMP METABOLIC PANEL Lab Routine Rectal cancer (HCC) Expected: 04/05/2023 (Approximate), Expires: 06/05/2023[facility] Work Phone: Comment on above:Expected: 04/05/2023 (Approximate), Expires: 06/05/2023Start: 58-19-2731Ffqkt-19 Vaccine (2022- season)Covid- 19 Vaccine ( season)[facility]: 56-92-5579Nipdg-19 Vaccine ( season)Covid-19 Vaccine ( season)[facility]: 75-50-8897Wgowakhhe vaccinationOhioHealth Dublin Methodist Hospitaltart: 73-33-9077IfgaekgeaGuernsey Memorial Hospitaltart: 97-52-2578QHQJVHZ DIRECTIVE DISCUSSIONADVANCE DIRECTIVE DISCUSSIONCleWilson Street Hospitaltart: 43-83-0851TKUNKYUSPK ASSESSMENT DEPRESSION ASSESSMENTOhioHealth Dublin Methodist Hospitaltart: 80-01-2882KTIZS-19 VACCINE (3 - Moderna series)COVID-19 VACCINE (3 - Moderna series)[facility]: 65-33-2469Wdeyw-19 Vaccine (3 - Moderna risk series)Covid-19 Vaccine (3 - Moderna risk series)[facility]: 13-02-1062Fvgrfseix for malignant neoplasm of breastOhioHealth Dublin Methodist Hospitaltart: 03-01-2019Medicare Annual Wellness VisitMedicare Annual Wellness VisitOhioHealth Dublin Methodist Hospitaltart: 12-79-2845YVRR DENSITY BONE DENSITYOhioHealth Dublin Methodist Hospitaltart: 28-24-1649Gyom Density ScreeningBone Density ScreeningOhioHealth Dublin Methodist Hospitaltart: 93-11-1059Rffdzvjartky Vaccine: 65+ (2 - PCV) Pneumococcal Vaccine: 65+ (2 - PCV)[facility]: 50-93-9683Livamlvpwptj Vaccine: 65+ Years (2 - PCV)Pneumococcal Vaccine: 65+ Years (2 - PCV)[facility] HospitalStart: 39-75-1621Gszenarrrque Vaccine: 65+ Years (2 of 2 - PCV)Pneumococcal Vaccine: 65+ Years (2 of 2 - PCV)[facility] HospitalStart: 38-61-1139DULXQTKNFEBT: 65+ (1 - PCV)PNEUMOCOCCAL: 65+ (1 - PCV)[facility] Start: 36-30-2674AGFZTDUUMGHR: 65+ (2 - PCV)PNEUMOCOCCAL: 65+ (2 - PCV)[facility]: 76-70-2543Wjfbqllyh for osteoporosisBone Density Screening [facility]: 74-60-3113Vzwiftoxkdbk Vaccine: 50+ (2 of 2 - PCV) Pneumococcal Vaccine: 50+ (2 of 2 - PCV)[facility]: 04-09-2016 Pneumococcal Vaccine: 65+ (3 - PCV)Pneumococcal Vaccine: 65+ (3 - PCV)[facility]: 17-86-0719Ldejkcrmdbby Vaccine: 65+ (3 of 3 - PCV)Pneumococcal Vaccine: 65+ (3 of 3 - PCV)[facility]: 62-80-5244Xgmkbtdaosxf Vaccine: 65+ Years (2 of 2 - PCV)Pneumococcal Vaccine: 65+ Years (2 of 2 - PCV) [facility] HospitalStart: 97-32-8548UNL Vaccine (1 - 1-dose 60+ series)RSV Vaccine (1 - 1-dose 60+ series)[facility]: 75-71-7116GUO Vaccine (1 - Risk 60-74 years 1-dose series)RSV Vaccine (1 - Risk 60-74 years 1-dose series) [facility]: 50-86-3768ABUFERFS VACCINE (1 of 2)SHINGRIX VACCINE (1 of 2)[facility]: 83-09-0452ETOGDTCHW (FIT-DNA)COLOGUARD (FIT-DNA) [facility]: 56-57-4846CmhjwqlbqpoXKSDGDOPZNDTdobydmmx ClinicStart: 75-42-1823OKFZTEJESO CANCER SCREENINGCOLORECTAL CANCER SCREENINGWadsworth-Rittman Hospital Start: 09-13-4517HY COLONOGRAPHYCT COLONOGRAPHYCleWilson Street Hospitaltart: 2000 [address] Hospitaltart: 26-57-7798Wcnlaqsh ScreeningDiabetes ScreeningOhioHealth Dublin Methodist Hospitaltart: 88-16-6626CSLPY OCCULT BLOOD FECAL OCCULT BLOODOhioHealth Dublin Methodist Hospitaltart: 74-23-4581Jysmv 1996 panel - Serum or PlasmaLipid ScreeningOhioHealth Dublin Methodist Hospitaltart: 22-92-2444Tcoqu panelLipid Screening [facility]: 22-40-7074HRVQL SCREENLIPID SCREENOhioHealth Dublin Methodist Hospitaltart: 28-02-2473Gnxlmqbzi for malignant neoplasm of colonOhioHealth Dublin Methodist Hospitaltart: 24-69-0316RYOFSYGLXOZWJYHLBGDPNLELAAJyxgkyxyo ClinicStart: 48-84-6067Fdnknubucrq [facility]: 64-62-6081Jvtvxzzbi for malignant neoplasm of breast [facility]: 86-07-5861DJwL/Tdap/Td Vaccines (1 - Tdap)DTaP/Tdap/Td Vaccines (1 - Tdap)[facility] HospitalStminden city: 41-20-4139Cgzxd microalbumin profileOhioHealth Dublin Methodist Hospitaltart: 45-36-2636Snyjdw PCP Team Chronic Disease VisitAnnual PCP Team Chronic Disease VisitOhioHealth Dublin Methodist Hospitaltart: 39-19-1155JN Controlled (<130/80)BP Controlled (<130/80)[facility]: 03-13-3118JQGTIUGZA C SCREENINGHEPATITIS C SCREENINGOhioHealth Dublin Methodist Hospitaltart: 17-98-7352Fkmgxdrfk C screeningHepatitis C ScreeningOhioHealth Dublin Methodist Hospitaltart: 62-87-8585Fyworusln for malignant neoplasm of cervixCervical Cancer Screening [facility]: 35-42-5328CXVJL-19 VACCINE (#1)COVID-19 VACCINE (#1) [facility] Hospitaltart: 51-20-0584Siagf panelLipid PanelTriHealth [facility]hesda North Hospital: 02-15-1954Medicare Annual Wellness VisitMedicare Annual Wellness Visit (AWV)[facility]: 42-04-8459Wywkbmwob for malignant neoplasm of colonJ.W. Ruby Memorial HospitalAnion gap measurementDayton Children'S HospitalBacteria identified in Unspecified specimen by Aerobe cultureDayton Children'S HospitalBacteria identified in Unspecified specimen by Anaerobe cultureDayton Children'S Hospital Bacteria identified in Urine by CultureURINE CULTURE Microbiology Routine Dysuria 05/01/2023 11:19 AM [facility] Work Phone: Basophils [#/volume] in Blood by Automated count [facility] HospitalBasophils/100 leukocytes in Blood by Automated countDayton Children'S HospitalCarcinoembryonic Ag [Mass/volume] in Serum or PlasmaCEA BLD Lab Routine History of rectal cancer 10/10/2023 11:[address] [facility] Work Phone: Carcinoembryonic Ag [Mass/volume] in Serum or Plasma CARCINOEMBRYONIC ANTIGEN Lab Routine History of rectal cancer Rectal cancer (HCC) 02/10/2025 12:42 PM EDTCohiohealth [facility] ClinicClosure enterostomy lg/small intestineCLOSURE ILEOSTOMY Attention to ileostomy (HCC) Partial small bowel obstruction (HCC)[facility] End: 65-94-1656IX Abdomen and Pelvis W contrast IVCT ABD/PEL W IVCON Radiology Routine History of rectal cancer Rectal cancer (HCC) 1 Occurrences starting 09/03/2024 until 10/03/2025[facility] ClinicComment on above:1 Occurrences starting 09/03/2024 until 10/03/2025T Abdomen and Pelvis W contrast IVCT ABD/PEL W IVCON Radiology Routine History of rectal cancer Rectal cancer (HCC) 02/10/2025 1:51 PM [facility] Work Phone: End: 72-59-0140DX Chest W contrast IVCT CHEST W IVCON Radiology Routine History of rectal cancer Rectal cancer (HCC) 1 Occurrences starting 09/03/2024 until 10/03/2025[facility] ClinicComment on above:1 Occurrences starting 09/03/2024 until 10/03/2025T Chest W contrast IVCT CHEST W IVCON Radiology Routine History of rectal cancer Rectal cancer (HCC) 02/10/2025 1:51 PM [facility] HospitalCT SIM PLANNING RADIATION ONCOLOGYCT SIM PLANNING RADIATION ONCOLOGY Radiology Routine Rectal adenocarcinoma (HCC) Ordered: 03/23/2023[facility] Work Phone: Comment on above:Ordered: 03/23/2023 End: 78-85-7456NED DIAGNOSTICEGD DIAGNOSTIC Endoscopy Routine Dyspepsia 1 Occurrences starting 04/06/2023 until 04/05/2024[facility] Work Phone: Comment on above:1 Occurrences starting 04/06/2023 until 04/05/2024Eosinophils/100 leukocytes in Blood by Automated [facility] HospitalErythrocyte distribution width [Ratio] by Automated [facility] HospitalErythrocytes [#/volume] in [facility] HospitalGlucose measurement estimated from glycated hemoglobin [facility] HospitalGuidance for removal of CV catheter with port from ChestIR PORTOCATH REMOVAL Radiology Routine Rectal adenocarcinoma (HCC) Ordered: 12/14/2023[facility] Work Phone: Comment on above:Ordered: 12/14/2023Hematocrit [Volume Fraction] of [facility] HospitalHemoglobin [Mass/volume] in [facility] HospitalIR PORTOCATH PLACEMENTIR PORTOCATH PLACEMENT Radiology KARYN Rectal cancer (HCC) Ordered: 04/05/2023[facility] Work Phone: Comment on above:Ordered: 04/05/2023Leukocytes [#/volume] corrected for nucleated erythrocytes in Blood by Automated coun [facility]S HospitalLeukocytes [#/volume] in [facility] HospitalLymphocytes [#/volume] in Blood by Automated count [facility] HospitalLymphocytes/100 leukocytes in Blood by Automated countDayton Children'S HospitalMCH [Entitic mass] by Automated countDayton Children'S HospitalMCHC [Mass/volume] by Automated count [facility] HospitalMCV [Entitic volume] by Automated count [facility] HospitalMonocytes [#/volume] in Blood by Automated countDayton Children'S HospitalMonocytes/100 leukocytes in Blood by Automated countDayton Children'S Hospital End: 37-78-3084Dnt pelvis w/o & w/contrast materialMRI RECTUM WO/W IVCON Radiology Routine Rectal adenocarcinoma (HCC) 1 Occurrences starting 03/07/2023 until 04/05/2024[facility] Work Phone: Comment on above:1 Occurrences starting 03/07/2023 until 04/05/2024Neutrophils [#/volume] in Blood by Automated [facility] HospitalNeutrophils/100 leukocytes in Blood by Automated count [facility] HospitalNucleated erythrocytes [Presence] in Blood by Automated [facility] HospitalPatient EducationOhiohealth [facility] Ctr Work Phone: Patient referralOhiohealth Pickerington [facility] Work Phone: Platelet mean volume [Entitic volume] in Blood by Automated [facility] HospitalPlatelets [#/volume] in Blood [facility] End: 87-02-0890Asdxyanev colonoscopyCOLONOSCOPY SCREENING Endoscopy Routine Encounter for follow-up surveillance of rectal cancer 1 Occurrences starting 02/20/2025 until 02/20/2026[facility] Work Phone: Comment on above:1 Occurrences starting 02/20/2025 until 02/20/2026UA DIP B/OUA DIP B/O Lab Routine Dysuria Ordered: 05/01/2023 [facility] Work Phone: Comment on above:Ordered: 05/01/2023[facility] Immunizations Immunization DateImmunizationNotesCare RnhhluhsNoxlorpu06-34-6892gmauczfok, high dose seasonal, preservative-freeBrett Kuns DO Work Phone: [facility]02-01-2025influenza virus vaccine, unspecified formulationChapincito Anthony PT Work Phone: [facility] HospitalQljcha33-90-1160jtjhsx vaccine recombinant Charles Kuns Other [facility] HospitalQemmeb11-77-9761zthuog vaccine recombinant Charles Kuns Other [facility] HospitalApbxic35-53-8984BLQLA-41 Vaccine Moderna - Documentation Purposes OnlyRobert Mead II Other [facility]03-23-2021COVID-19 mRNA Bivalent Booster (Moderna)DO Charles Bazzi Work Phone: [facility]02-25-2021COVID-19 Vaccine Moderna - Documentation Purposes OnlyRobert Mead II Other [facility]10-29-2019influenza nasal, unspecified formulationLab/Port Ghassan Work Phone: [facility] HospitalUavpwj84-82-2252mhdcghpse, injectable, quadrivalent, preservative ChinmayO Charles Bazzi Work Phone: [facility]10-29-2019influenza, injectable, quadrivalent, contains preservativeRobert Mead II Other [facility] HospitalFrkpbx81-29-3192rbrujhzeg virus vaccine, unspecified formulationColleen Solorio RN Work Phone: [facility] HospitalYgfjtw89-81-9558kgnbcmqgh, injectable, quadrivalent, preservative ChinmayO Charles Bazzi Work Phone: [facility]10-10-2017influenza, injectable, quadrivalent, contains preservativeRobert Mead II Other [facility] HospitalEczyvv42-98-7618pcgslwuwr, seasonal, injectableAngelatt R Dixie Work Phone: [facility] HospitalComment on above:Series:04-09-2015 pneumococcal polysaccharide vaccine, 23 valentBrepeyton R Dixie Work Phone: [facility] HospitalComment on above:Series:04-09-2014 influenza, injectable, madin claire canine kidney, preservative freeCharles Bazzi Work Phone: [facility] HospitalSdhunx95-58-1711tdbzomxmr, seasonal, injectable, preservative Heide Hudson MD Work Phone: [facility] HospitalXmjvph10-73-1706unbiygmqxmny polysaccharide vaccine, 23 valentCharles Bazzi Work Phone: [facility] HospitalRuljqi81-00-7363evkmap vaccine, liveRobert Mead II Other [facility] HospitalXooiew42-08-1608yuhexiexcvbu polysaccharide vaccine, 23 valentRobert Mead II Other [facility] HospitalOqbxua28-00-7082dfrhlfkkb virus vaccine, unspecified formulationDO Charles Bazzi Work Phone: [facility]01-04-2014influenza virus vaccine, split virus (incl. purified surface antigen)Caroline Rangel II Other [facility] HospitalNEGATED: Highlighted row has not occurred!39-85-8647thogddvqe, seasonal, injectablePatient ObjectionRobert Juan Carlos BRIDGES Other [place] [employer] Other Payers DatePayer CategoryPayerPolicy [id number]-[id number] Health Insurance [id number] [id number] 2019Medicare [id number] [id number] 20.1.258005.3.57[id number] 2840.1.345716.3.579.2.89899-24-8719Hqfngwa8507516 2.16.840.1.689500.3.579.[id number] 2.16.840.1.138770.3.579.2.40228-23-3026Giztbzi019361269 2.16.840.1.782927.3.579.2.53627-35-7148Qdlixuu473392824 2.16.840.1.737473.3.579.2.21216-53-5634Yknjkbf66761436 2.16.840.1.624616.3.579.2.049859-73-6373Vbmnijb4280256 2.16.840.1.581212.3.579.2.789510-71-0687Accaula0005261 2.16.840.1.015607.3.579.2.834532-36-6914Okqlnsl5068195 2.16.840.1.792644.3.579.2.538629-66-1482Dmmsjwz4514349 2.16.840.1.905613.3.579.2.138945-48-7336Qdwfsfk8042697 2.16.840.1.169955.3.579.2.514587-17-2690Unijecv2153742 2.16.840.1.961530.3.579.2.952377-21-3394Qrncwth3641998 2.16.840.1.833520.3.579.2.476633-83-3292Vdxbewh6486755 2.16.840.1.843401.3.579.2.155426-85-4070Fglgopu5908405 2.16.840.1.759613.3.579.2.291013-79-3582Cfjdwxk379860 2..0.1.722693.3.579.2.166385-42-9114Gtyutse661197 2..0.1.001634.3.579.2.907085-21-1115Wsbweiv110854 2..840.1.634226.3.579.2.661121-20-6071Hnsqzfz882593 2..0.1.312295.3.579.2.549643-24-9120Tppdirh696764950 2.0.1.513963.3.579.2.37493-69-2102Qvejwvc996611268 2..1.748860.3.579.2.22817-04-0430Zhkhahn003891583 2..1.463834.3.579.2.46110-69-9009Lwomiki038954366 2..1.153224.3.579.2.80106-91-5843Ikjkque597715725 2..1.644212.3.579.2.09707-11-2872Snsqxwc711491791 2.0.1.397170.3.579.2.196MedicareAnthem Mediue Dual [id number] 3658ez39-y94y-5mt9-p766-6t587mzs7j9cFkzuthzBfaatbztxxkF19791809 y2w14493-03s2-32j9-xa5h-258f2i6k1927Nfmeqmi40028091 2..840.1.289940.3.579.2.863Vnuaelq78897208 2..840.1.943530.3.579.2.531 Jmadkgg52466700 2..840.1.672775.3.579.2.262Sheonxt02094256 2.16.840.1.153981.3.579.2.408Sbontcv40532998 2.16.840.1.200149.3.579.2.531 Tkjiucp05787330 2.16.840.1.946238.3.579.2.817Rgmiuqa61584113 2.16.840.1.485898.3.579.2.074Pzlpxyo07320939 2.16.840.1.579549.3.579.2.531 Dfjtgoc84291989 2.16.840.1.678405.3.579.2.686Lwfczsv65313215 2.16.840.1.021816.3.579.2.531 Social History DateTypeDetailFacilityStart: 03-08-2023 End: 09-12-9322Zki Assigned At BirthOhioHealth [facility] Hospitaltart: 06-02-2021 End: 57-77-6895Ulzqcoi smoking status NHISNever smoked tobacco (finding) [facility]: 57-46-6042Gft [facility]igned [facility] HospitalFeMorrow County Hospitaltart: 03-08-2023 End: 43-55-3093Nwjmdkcbii alcohol useOccasional alcohol useWadsworth-Rittman Hospital Tobacco smoking status NHISTobacco smoking consumption unknownWadsworth-Rittman Hospital Start: 06-32-9684Uar Assigned At BirthNot on fileWadsworth-Rittman HospitalHistory of tobacco usePassive smokerOhioHealth Dublin Methodist Hospitaltart: 01-17-2023 End: 40-70-5024Teorrjd use and exposureSmokeless tobacco non-userOhioHealth Dublin Methodist Hospitaltart: 03-08-2023 End: 01-62-6309Qmcocni intakeCurrent drinker of alcohol (finding)[facility] Hospitaltart: 81-25-7083Mgaakxs CommentsociallyCGerman Hospitaltart: 06-10-2012 End: 67-90-4348Kxulj Depression Screening Bzmymrohad7Wdcuctqza ClinicStart: 19-36-1422Wrriyfy Comment1 drink weekly if thatOhioHealth Dublin Methodist Hospitaltart: 04-18-2023 Alcohol Commentsocially a couple times per monthOhioHealth Dublin Methodist Hospitaltart: 93-66-5155Umykzdd CommentoccasionalUniLima Memorial Hospital Work Phone: Start: 07-15-2023 End: 76-61-0659Mpwayovd to SARS-CoV-2 (event)Not sureJ.W. Ruby Memorial HospitalStart: 76-44-8937Egbhnco Comment2 times a month if [facility] (I/We) worried whether (my/our) food would run out before (I/we) got money to buy more.DK or RefusedOhioHealth Dublin Methodist Hospitaltart: 09-22-2023 End: 97-69-3598Hncatvo intakeEx-drinker (finding)[facility] HospitalHa the Smart[employer] gas, oil, or water Tourvia.me threatened to shut off services in your home in past 12MoNoClsouthwest general health center Clinic(I/We) worried whether (my/our) food would run out before (I/we) got money to buy more.Never trueOhioHealth Dublin Methodist Hospitaltart: 05-22-2024 End: 02-72-2787MjgIdpbbw (finding)[facility] HospitalHow often to you have a drink containing alcohol?2-4 times a monthNOMS HealthcareHow many standard drinks containing alcohol do you have on a typical day?1 or 2NOMS HealthcareHow often do you have 6 or more drinks on 1 occasion?NeverGUNNISON VALLEY HOSPITAL HealthcareStart: 28-90-7734Hmycxqc Comment2-4 times/month. Coffee: 2-3 cups per dayNOMD Healthcare Medical Equipment Procedure CodeEquipment CodeEquipment Original TextEquipment IdentifierDates Insertion of central venous catheter (CVC) with subcutaneous port for chemotherapyVascular port/catheter()[id number] FDA Start: 55-90-4935Clexmd of distal interphalangeal joint of fingerOrthopaedic bone screw, non-bioabsorbable, non-sterile()[id number] FDAStart: 78-15-4667FWDA OBTURATOR SYSTEMFDAStart: 28-99-1776URTE OBTURATOR SYSTEMFDA Start: 08-14-3693LUYY OBTURATOR SYSTEMFDAStart: 85-34-0738XTKH OBTURATOR SYSTEM FDAStart: 36-67-2323MSRN OBTURATOR SYSTEMFDAStart: 61-76-2006CKNM OBTURATOR SYSTEMFDAStart: 92-73-1049YCLF OBTURATOR SYSTEMFDAStart: 80-77-0110TWSH OBTURATOR SYSTEMFDAStart: 40-98-8555UPAP OBTURATOR SYSTEMFDAStart: 11-09-2018 TVTO OBTURATOR SYSTEMFDAStart: 82-48-3031AWTK OBTURATOR SYSTEMFDAStart: 04-70-0031KODF OBTURATOR SYSTEMFDAStart: 56-55-2250ICFR OBTURATOR SYSTEMFDA Start: 20-06-2152XZSI OBTURATOR SYSTEMFDAStart: 46-86-4838FTYP OBTURATOR SYSTEM FDAStart: 15-81-8436HUCA OBTURATOR SYSTEMFDAStart: 20-51-8947YOEJ OBTURATOR SYSTEMFDAStart: 74-45-5804LFVS OBTURATOR SYSTEMFDAStart: 28-54-3155YBYM OBTURATOR SYSTEMFDAStart: 19-45-3714YPUU OBTURATOR SYSTEMFDAStart: 11-09-2018 TVTO OBTURATOR SYSTEMFDAStart: 81-24-8402TQCS OBTURATOR SYSTEMFDAStart: 08-15-7888PYPL OBTURATOR SYSTEMFDAStart: 95-30-5325BYBQ OBTURATOR SYSTEMFDA Start: 76-76-2093DLLV OBTURATOR SYSTEMFDAStart: 11-09-2018 Goals DatePatient GoalDesired Activity/StatePersonal health goal Functional Status AhueFusjpkyohaNzxgndEqnxucpu76-44-2938Tnsmxugcvp statusPatient at [facility] Work Phone: [phone]eqgbkmae statusPatient at Baseline [facility] Work Phone: [phone]) 208-622902385629-17-5464Mea you deaf, or do you have serious difficulty hearingNo 09/04/2023 3:54 PM Rebecca Cano, KAYA [facility] HospitalKwtmok10-23-7766Xoq you blind, or do you have serious difficulty seeing, even when wearing glassesNo 09/04/2023 3:54 PM Rebecca Cano RN [facility]02-26-2024Do you have serious difficulty walking or climbing stairsNo 09/04/2023 3:54 PM Rebecca Cano RN NoCOhioHealth Marion General HospitalDpevpo04-98-2691Dm you have difficulty dressing or bathingNo 09/04/2023 3:54 PM Rebecca Cano RN NoCOhioHealth Marion General HospitalKlqfqg01-61-1425Oxgrtcu of a physical, mental, or emotional condition, do you have difficulty doing errands alone such as visiting a physician's office or shoppingNo 09/04/2023 3:54 PM Rebecca Cano RN [facility] HospitalStnsdc51-40-0519Hqofyfsjzs statusPatient at [facility] Work Phone: Mental Status SberBfncmwwcfqBmljgwUrvppfnb68-14-3419Hxkrycdkp functionCognitive Status Patient at [facility] Work Phone: [phone]) 137-631203972341-00-0327Sypdhfxxi functionCognitive Status Patient at [facility] Work Phone: [phone]) 588-275202-873165-58-8128Bwsaxig of a physical, mental, or emotional condition, do you have serious difficulty concentrating, remembering, or making decisionsNo 09/04/2023 3:54 PM Rebecca Cano RN [facility] 67-51-8531Wxnqozefz functionCognitive Status Patient at [facility] Work Phone: Clinical Notes 02-11-2022 to 03-13-2025 Note Date & DllbNxhoKyxbnoie94-87-0270 Hospital Discharge instructions* Discharge Instr - Other Orders* Bonny Duque MD - 03/13/2025 8:31 AM EDT Post Colonoscopy Instructions OK to resume diet as before. Start with clear liquids and advance to gentle foods to start. Symptoms or health problems to watch for after I leave the hospital: -Increasing abdominal pain or swelling unrelieved by rest, medication, and ice. -Severe or unrelenting nausea or vomiting. -Fever greater than 101.5 F (38.6 C) or chills. -Unable to take in liquids or solid foods for greater than 24 hours. -Shortness of breath. -Chest pain. -Racing heartbeat. -Difficulty urinating. -more than a cup of blood For these or any other concerning symptom, please call immediately for advice documented in this encounterWadsworth-Rittman Hospital09-04-2025 History and physical note * Bonny Duque MD - 03/13/2025 7:44 AM EDT ENDOSCOPY HISTORY AND PHYSICAL EXAM Evan Gill [id number] Subjective HPI: This is a 69 year old female with a history of rectal cancer s/p STACY, LAR with DLI 08/2023 and reversal 11/2023 who presents for colonoscopy for surveillance. Last colonoscopy was 09/2024. A 2.5cm ascending colon polyp was removed. No family history of colon and rectal cancer No family history of inflammatory bowel disease PAST ANESTHESIA HISTORY: No history of adverse event PAST MEDICAL HISTORY Diagnosis Date Constipation Diverticulosis Malignant melanoma (HCC) Rectal cancer (HCC) PAST SURGICAL HISTORY Procedure Laterality Date COLONOSCOPY PAST SURGICAL HISTORY OF Right knee surgery PAST SURGICAL HISTORY OF skin lesion removed melanoma REMOVAL GALLBLADDER Prior to Admission medications as of 03/13/25 0739 Medication Sig Last Dose Taking LEXAPRO 10 mg tablet 03/12/2025 Yes meloxicam (MOBIC) 15 mg tablet Take 15 mg by mouth once daily. 03/12/2025 Yes ondansetron orally disintegrating (ZOFRAN ODT) 8 mg disintegrating tablet Take 1 tablet by mouth every 8 hours as needed for nausea/vomiting. 03/12/2025 Yes omeprazole (PRILOSEC) 40 mg capsule Take 40 mg by mouth once daily. 03/12/2025 Yes oxybutynin ER (DITROPAN XL) 15 mg 24 hr Extended Rel Tab Take 15 mg by mouth. 03/12/2025 Yes aspirin, enteric coated (ASPIRIN, ENTERIC COATED) 81 mg EC tablet Take 81 mg by mouth once daily. 03/12/2025 Yes INV SEMAGLUTIDE 0.25 MG/0.5 ML INJECTION (IRB 24-915) Inject 0.25 mg subcutaneously one time a week. For Investigational Drug Use Only. PI: Ruthann Cisneros MD. ALLERGIES No Known Allergies Objective PHYSICAL EXAM: The remainder of the physical exam is noncontributory. AIRWAY: Patent LUNGS: Clear to auscultation bilaterally CARDIAC: Regular rate and rhythm, no murmur Assessment/Plan ASA Class: Active Problems: * No active hospital problems. * Resolved Problems: * No resolved hospital problems. * Medication and Non-Pharmacologic VTE Prophylaxis/Anticoagulants VTE Prophylaxis: Not indicated for current procedure Provisional Diagnosis/Treatment Plan: COLONOSCOPY: surveillance with possible biopsy under MAC sedation Consent has been signed Bonny Duque MD 03/13/2025 7:46 AM Cosigned by Laisha Singer MD at 03/13/2025 7:49 AM EDT Associated attestation - Laisha Singer MD - 03/13/2025 7:49 AM EDT CORS STAFF PHYSICIAN NOTE OF PERSONAL INVOLVEMENT IN CARE I have reviewed the history and physical exam obtained and documented by the resident and I personally participated in the guzman components. I have confirmed and edited as necessary, the PFSH and ROS obtained by others. I have discussed the case and management of the patient's care. CV: RRR Pulm: no increased respiratory effort Laisha Singer MD Date of Service: March 13, 2025 [facility] Work Phone: 1(715) 690-116909-04-2025 History and physical note* Bonny Duque MD - 03/13/2025 7:44 AM EDT ENDOSCOPY HISTORY AND PHYSICAL EXAM Evan Gill [id number] Subjective HPI: This is a 69 year old female with a history of rectal cancer s/p STACY, LAR with DLI 08/2023 and reversal 11/2023 who presents for colonoscopy for surveillance. Last colonoscopy was 09/2024. A 2.5cm ascending colon polyp was removed. No family history of colon and rectal cancer No family history of inflammatory bowel disease PAST ANESTHESIA HISTORY: No history of adverse event PAST MEDICAL HISTORY Diagnosis Date Constipation Diverticulosis Malignant melanoma (HCC) Rectal cancer (HCC) PAST SURGICAL HISTORY Procedure Laterality Date COLONOSCOPY PAST SURGICAL HISTORY OF Right knee surgery PAST SURGICAL HISTORY OF skin lesion removed melanoma REMOVAL GALLBLADDER Prior to Admission medications as of 03/13/25 0739 Medication Sig Last Dose Taking LEXAPRO 10 mg tablet 03/12/2025 Yes meloxicam (MOBIC) 15 mg tablet Take 15 mg by mouth once daily. 03/12/2025 Yes ondansetron orally disintegrating (ZOFRAN ODT) 8 mg disintegrating tablet Take 1 tablet by mouth every 8 hours as needed for nausea/vomiting. 03/12/2025 Yes omeprazole (PRILOSEC) 40 mg capsule Take 40 mg by mouth once daily. 03/12/2025 Yes oxybutynin ER (DITROPAN XL) 15 mg 24 hr Extended Rel Tab Take 15 mg by mouth. 03/12/2025 Yes aspirin, enteric coated (ASPIRIN, ENTERIC COATED) 81 mg EC tablet Take 81 mg by mouth once daily. 03/12/2025 Yes INV SEMAGLUTIDE 0.25 MG/0.5 ML INJECTION (IRB 24-915) Inject 0.25 mg subcutaneously one time a week. For Investigational Drug Use Only. PI: Ruthann Cisneros MD. ALLERGIES No Known Allergies Objective PHYSICAL EXAM: The remainder of the physical exam is noncontributory. AIRWAY: Patent LUNGS: Clear to auscultation bilaterally CARDIAC: Regular rate and rhythm, no murmur Assessment/Plan ASA Class: Active Problems: * No active hospital problems. * Resolved Problems: * No resolved hospital problems. * Medication and Non-Pharmacologic VTE Prophylaxis/Anticoagulants VTE Prophylaxis: Not indicated for current procedure Provisional Diagnosis/Treatment Plan: COLONOSCOPY: surveillance with possible biopsy under MAC sedation Consent has been signed Bonny Duque MD 03/13/2025 7:46 AM Cosigned by Laisha Singer MD at 03/13/2025 7:49 AM EDT Associated attestation - Laisha Singer MD - 03/13/2025 7:49 AM EDT [employer] STAFF PHYSICIAN NOTE OF PERSONAL INVOLVEMENT IN CARE I have reviewed the history and physical exam obtained and documented by the resident and I personally participated in the guzman components. I have confirmed and edited as necessary, the PFSH and ROS obtained by others. I have discussed the case and management of the patient's care. CV: RRR Pulm: no increased respiratory effort Laisha Singer MD Date of Service: March 13, 2025 documented in this encounterWadsworth-[facility]08-14-[facility] Instructions* Patient Instructions* Camilla Cortés LPN - 02/20/2025 2:20 PM EDT F/U with Dr. Corona 08/23/25, labs 1 week prior documented in this encounterWadsworth-Rittman [facility]08-14-2025 NoteHNO ID: [id number] Author: TAPAN CORONA MD Service: ? Author Type: Physician Type: Progress Notes Filed: 02/20/2025 14:27 Note Text: PATIENT NAME: Evan Gill CLINIC NO.: [id number] ATTENDING PHYSICIAN: Tapan Corona MD DATE OF [...] Final Hematocrit Date Value (more content not included)...[facility]08-14-2025 History of Present illness Narrative* Tapan Corona MD - 02/20/2025 2:12 PM EDT Images from the original note were not included. PATIENT NAME: Evan Gill CLINIC NO.: [id number] ATTENDING PHYSICIAN: Tapan Corona MD DATE OF [...] Range Status 02/10/2025 8.4 % Final Abs [place] Date Value Ref Range Status 02/10/2025 0.51 [...] right lower quadrant ileostomy. Assessment and Plan: Evan Gill is a [...] do not hesitate to contact me at [phone]. Tapan Corona MD Hematology/Medical Oncology [facility] spent a total of 30 minutes on the date of the service which included preparing to see the patient, [id number] patient care, completing clinical documentation, obtaining and/or reviewing separately obtained history, performing a medically appropriate examination, counseling and educating the pat ient/family/caregiver, and ordering medications, tests, or procedures. CC: documented in this encounterWadsworth-[facility]ittman [facility]08-14-2025 NoteHNO ID: [id number] Author: CIERRA LINDQUIST RN Service: ? Author [...] number for further concerns and for questions. [phone] TIME SPENT: 15 minutes Electronically Signed By: SHANDRA Peterson, RN DDSI Specialty Care CoordinatorCleveland Clinic [facility]08-14-2025 History of Present illness Narrative* Cierra Lindquist RN - 02/20/2025 1:47 PM EDT [...] number for further concerns and for questions. [phone] TIME SPENT: 15 minutes Electronically Signed By: SHANDRA Peterson, RN DDSI Specialty Employment Specialist/Program Manager documented in this encounterWadsworth-[facility]08-14-2025 History of Present illness Narrative* Laisha Singer MD - 02/20/2025 1:20 PM EDT COLORECTAL SURGERY February 20, 2025 Evan Gill [...] which included preparing to see the patient, [id number] patient care, completing clinical documentation, obtaining and/or reviewing separately obtained history, performing a medically appropriate examination, counseling and educating the pat ient/family/caregiver, ordering medications, tests, or procedures, communicating with other HCPs (not separately reported), independently interpreting results (not separately reported), communicatingresults to the patient/family/caregiver, and care coordination (not separately reported). Laisha Singer MD Colorectal Surgery ' documented in this encounterWadsworth-Rittman [facility]08-14-2025 NoteHNO ID: [id number] Author: LAISHA SINGER MD Service: ? Author [...] discussed Evan Gill's treatm (more content not included)...[facility]08-14-2025 NoteEducation ([facility]) JAIROEVAN ([id number]) 1955 F Date Time Provider Department 02/20/25 CIERRA LINDQUIST [facility] Reason for Visit: history of colon [...] daily. Encounter Status:Closed by CIERRA LINDQUIST on 02/20/25[facility] 02-19-2025 NoteHNO ID: [id number] Author: CHAPINCITO ANTHONY PT Service: ? Author [...] THERAPY PHYSICAL THERAPY TREATMENT NOTE ASSESSMENT: Evan C Jairo tolerated the session with pain and tightness [...] Bowel Movement Frequency: 2-3 Bowel Movement Consistency ([place]) : 4: Like a sausage or snake, [...] and assessment of patient's response to intervention. Self-Correction Management: 1: ways to breathe into the [...] Session Stop Time : [address] Anthony [facility]08-13-2025 History of Present illness Narrative* Chapincito Anthony, PT - 02/19/2025 6:03 PM EDT [...] Bowel Movement Frequency: 2-3 Bowel Movement Consistency ([place]) : 4: Like a sausage or snake, [...] and assessment of patient's response to intervention. Self-Correction Management: 1: ways to breathe into the [...] [address] PT documented in this encounterWadsworth-[facility]08-04-2025 History of Present illness Narrative* Jen Watson RN - 02/10/2025 1:15 PM EDT Radiology [...] February 10, 2025 TIME: 1:02 PM * Kamila Maldonado, RT(R) - 02/10/2025 1:15 PM EDT Radiology [...] PATIENT PRESENTS WITH AN IMPLANTABLE OR ATTACHED OUTSIDE REPAIRER SPECIAL: No RADIOLOGY DEPARTMENT: CT; Exam(s) Completed: Chest Abdomen Pelvis PERIPHERAL IV DATA: Site assessment: Clean,Dry and Intact, Site disposition Discontinued SIGNED BY: ZEE Baig) February 10, 2025 1:35 PM documented in this encounterWadsworth-Rittman [facility]08-04-2025 NoteHNO ID: [id number] Author: KAMILA MALDONADO RT(R) Service: ? Author Type: Technologist Type: Progress [...] PATIENT PRESENTS WITH AN IMPLANTABLE OR ATTACHED OUTSIDE REPAIRER SPECIAL: No RADIOLOGY DEPARTMENT: CT; Exam(s) Completed: Chest Abdomen Pelvis PERIPHERAL IV DATA: Site assessment: Clean,Dry and Intact, Site disposition Discontinued SIGNED BY: ZEE Baig) February 10, 2025 1:35 [facility]08-04-2025 NoteHNO ID: [id number] Author: JEN WATSON RN Service: ? Author [...] Gill DATE: February 10, 2025 TIME: 1:02 [facility]07-23-2025 NoteHNO ID: [id number] Author: CHAPINCITO ANTHONY, PT Service: ? Author Type: Physical Therapist [...] Planned: 6 Planned Treatment Interventions: Therapeutic exercise (58809), Neuromuscular re-education (60001), Manual therapy (76137), Self-senior care management (45047), Patient/Family/Caregiver Education PLAN FOR NEXT VISIT: progress [...] night) : urine 2-3 (more content not included)...[facility]07-23-2025 History of Present illness Narrative* RajChapincito, PT - 01/29/2025 12:21 PM EDT Episode Visit Count: 1 Therapist That Will [...] Planned: 6 Planned Treatment Interventions: Therapeutic exercise (85135), Neuromuscular re- education (87406), Manual therapy (29807), Self-senior care management (88965), Patient/Family/Caregiver Education PLAN FOR NEXT VISIT: progress [...] or internally (vagi nal or rectal approach). (rectal and external) Pelvic Floor Muscle Assessment: Muscle Dynamics, PERFECT Power: (not consistent ; 3+/5 highest ; sometimes squeezes and lifts other times just squeezes; canalso push when asked to lift , and [...] Interventions: Therapeutic Exercise, Manual Therapy, Neuromuscular Re-Education, Self-Correction Management Evaluation Therapeutic Exercise: 1: SL breathing [...] and assessment of patient's response to intervention. Self-Correction Management: 1: POC; anatomy and connection to [...] [address] PT documented in this encounterWadsworth-[facility]ittman [facility]06-27-2025 Telephone encounter Note * Telephone Encounter - Princess Mckeon RN - 01/03/2025 9:36 AM EDT Call placed to patient. 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 She is starting Pelvic Floor PT in January (They had cancelled appts several times with her). She is having clustering of stools, mostly in evening. She feels she is taking too much imodium but stillhaving loose stools and is concerned if this [...] follow up in February with Dr Singer. Advisedto contact office anytime if in need of further discussion. [facility]06-27-2025 Miscellaneous Notes* Telephone Encounter - Princess Mckeon RN - 01/03/2025 9:36 AM EDT Call placed to patient. 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 She is starting Pelvic Floor PT in January (They had cancelled appts several times with her). She is having clustering of stools, mostly in evening. She feels she is taking too much imodium but stillhaving loose stools and is concerned if this [...] follow up in February with Dr Singer. Advisedto contact office anytime if in need of further discussion. documented in this encounterWadsworth-[facility]04-29-2025 NoteHNO ID: [id number] Author: ALE MARIE APRN.CNP Service: ? Author Type: Nurse Practitioner Type: Progress Notes Filed: 11/05/2024 12:50 Note Text: SENSITIVE EXAMINATION CONSENT: The sensitive examination was discussed with the Patient or Patient's Authorized Knitter Mechanic. As applicable, any other physician, advance practice provider, medical student, or other health professional student that will be observing or involved in the sensitive examination for educational or training purposes was discussed with the Patient or Authorized Knitter Mechanic. The Patient or Authorized Knitter Mechanic has agreed to proceed with the sensitive examination. [facility]04-29-2025 History of Present illness Narrative* Ale Marie APRN.CNP - 11/05/2024 12:47 PM EDT SENSITIVE EXAMINATION CONSENT: The sensitive examination was discussed with the Patient or Patient's Authorized Knitter Mechanic. Asapplicable, any other physician, advance practice provider, medical student, or other health professional student that will be observing or involved in the sensitive examination for educational or training purposes was discussed with the Patient or Authorized Knitter Mechanic. The Patient or Authorized Knitter Mechanic has agreed to proceed with the sensitive examination. documented in this encounterWadsworth-Rittman [facility]04-24-2025 NoteHNO ID: [id number] Author: CIERRA LINDQUIST RN Service: ? Author [...] REVIEWED: -Anorectal Manometry- call office to schedule [phone] -pelvic floor physical therapy - handout with phone numbers provided to schedule at location of choice -[place] information Patient acknowledges and understands. They have contact phone number for further concerns and for questions. Electronically Signed By: SHANDRA Peterson, RN DDSI Specialty Care CoordinatorCleveland Clinic [facility]04-24-2025 NoteHNO ID: [id number] Author: LAISHA SINGER MD Service: ? Author [...] per Dr. Corona - Colonoscopy 08/2024 (Dr. Grenee) - 1/2 cap of miralax daily - [...] tattooed. View External Procedures - Colonoscopy [ID [id number]] Pathology: Ascending colon polyp: tubular adenoma Scan [...] Imaging: CT Abdomen, CT (more content not included)...[facility]04-24-2025 NoteEducation ([facility]) EVAN GILL ([id number]) 1955 F Date Time Provider Department 10/31/24 CIERRA LINDQUIST [facility] Reason for Visit: Fecal Incontinence [1403] [...] daily. Encounter Status:Closed by CIERRA LINDQUIST on 10/31/24[facility] 10-09-2024 History of Present illness Narrative* Del Hudson MD - 10/09/2024 9:00 AM EDT Radiation Oncology - Follow Up [...] by: Del Hudson MD cc: Charles Bazzi [address] [address] No referring provider defined for this encounter. documented in this encounterWadsworth-Rittman [facility]04-02-2025 NoteHNO ID: [id number] Author: Del HUDSON MD Service: ? Author [...] Negative for pain, histo (more content not included)...[facility]03-12-2025 [place] [address] Colonoscopy Procedure Report Signed Patient: Evan Gill MR#: [id number] : 1955 Acct:[id number] Age/Sex: 69 / F Adm Date: Loc: Room: Type: [facility] Attending Dr: Tomi Greene MD Copies to: DO Tomi Carrillo MD~ Colonoscopy Date/Provider 09/18/2024 Tomi Greene MD Colonoscopy Findings: Procedure: Colonoscopy with polypectomy with tattoo injection Indication: 69-year-old female with history of rectal cancer s/p LAR here for surveillance colonoscopy Pre-operative diagnosis: history of rectal cancer s/p LAR Post-operative diagnosis: A colonic polyp Sedation: propofol per anesthesia dept O2 oximetry, hemodynamic monitoring was performed pre, during, and post procedure. Patient was identified, H&P completed, patient was given full explanation of the procedure as well as associatedrisks and written consent wasobtained prior to procedure. Patient expressed complete understanding of the procedure as well as alternatives to the procedure and to anesthesia and agreed to proceed with the procedure as indicated. Patient was immediately reassessed prior to IV sedation. Under IV sedation, patient was placed in the left lateral decubitus position. Digital rectal exam was performed and normal. Colonoscope was inserted and passed proximally to the cecum, which was identified by the ileocecal valve, appendiceal orifice and cecal floor. Colonoscope was slowly withdrawnwith the findings as below. Organ bowel prep score was good. Findings: Cecum: Normal. Ascending colon: A 2.5 cm polyp removed piecemeal using hot snare then 3 clips were placed at the polypectomy site to prevent bleeding then the area on the opposite wall of the polypectomy site was tattooed using black eye submucosal injection Hepatic flexure: Normal Transverse colon: Normal. Splenic flexure: Normal. Descending colon: Normal. Sigmoid colon: Normal. Rectum: Normal. Retroflexed views: Rectum did show internal hemorrhoids. Biopsy taken: No Complications: None EBL: Minimal Recommendations: -Repeat colonoscopy in 6 months -Follow up pathology Following a period of recovery, patient was seen and given full explanation of the procedure. Patient tolerated the procedure well and will be discharged in satisfactory, stable condition. Tomi Greene M.D. Documented By: Tomi Greene MD 09/18/24 1118 Signed By: 09/18/24 1121 [facility]03-12-2025 [place] [address] Gastroenterology H&P Signed Patient: Evan Gill MR#: [id number] : 1955 Acct:[id number] Age/Sex: 69 / F Adm Date: 5 Loc: Room: Type: [facility] Attending Dr: Tomi Greene MD Copies to: Charles Bazzi,DO Tomi Greene MD~ Date of Service: 09/18/2024 HISTORY & PHYSICAL: Patient's history with special attention to the cardiovascular, pulmonary systems and the current problem was reviewed with the patient immediately prior to the procedure. Present medications and doses reviewed in the EMR. Allergies and pertinent laboratory tests were also re viewedat this time in the EMR. The physical [...] M.D. Documented By: Tomi Greene MD 09/18/24 104 Signed By: 09/18/24 1043 [facility]03-03-2025 Evaluation note* Author Adia Cho [facility]S HospitalAuthoredMar 2024 12:04pmThe above note written by Adia Cho LPN, acting as human recorder, note dictated by Dr. Charles Bazzi. [facility] Work Phone: 1(644) 402-276402-25-2025 Instructions* Patient Instructions* Rody Colmenares LPN - 09/03/2024 2:[address] scans and labs 1 week prior to Office visit with DR Edmondson on 02/20/25 documented in this encounterWadsworth-[facility]02-25-2025 NoteHNO ID: [id number] Author: TAPAN CORONA MD Service: ? Author Type: Physician Type: Progress Notes Filed: 09/03/2024 14:15 Note Text: PATIENT NAME: Evan Gill CLINIC NO.: [id number] ATTENDING PHYSICIAN: Tapan Corona MD DATE OF [...] Ref Range Status 08/10 (more content not included)...[facility]02-25-2025 History of Present illness Narrative* Tapan Corona MD - 09/03/2024 1:49 PM EST Images from the original note were not included. PATIENT NAME: Evan Gill CLINIC NO.: [id number] ATTENDING PHYSICIAN: Tapan Corona MD DATE OF [...] Range Status 08/19/2024 7.8 % Final Abs [place] Date Value Ref Range Status 08/19/2024 0.51 [...] do not hesitate to contact me at [phone]. Tapan Corona MD Hematology/Medical Oncology [facility] Giordano spent a total of 30 minutes on the date of the service which included preparing to see the patient, [id number] patient care, completing clinical documentation, obtaining and/or reviewing separately obtained history, performing a medically appropriate examination, counseling and educating the pat ient/family/caregiver, and ordering medications, tests, or procedures. CC: documented in this encounterWadsworth-[facility]02-18-2025 Telephone encounter Note * Telephone Encounter - Lenin Krause RN - 08/27/2024 11:12 AM EST Patient calling Requesting to speak to Gagandeep please Did not get the message/states message did not record Call CELL Leave Detailed messages [facility]02-18-2025 Miscellaneous Notes* Telephone Encounter - Lenin Krause RN - 08/27/2024 11:12 AM EST Patient calling Requesting to speak to Gagandeep please Did not get the message/states message did not record Call CELL Leave Detailed messages * Telephone Encounter - Gaganedep Ward RN - 08/27/2024 10:43 AM EST Left message for patient regarding lab results. Follow up OV Dr Corona 09/03/24 as scheduled. Sent to scanning into [employer] documented in this encounterWadsworth-Ritt[facility]02-18-2025 Telephone encounter Note * Telephone Encounter - Gagandeep Ward RN - 08/27/2024 10:43 AM EST Left message for patient regarding lab results. Follow up OV Dr Corona 09/03/24 as scheduled. Sent to scanning into epic [facility]12-03-2024 Evaluation note* Diagnosis Onset Date Resolution Status Admit Date Infected finger acuteDecember 2023 10:34amCellulitis of right middle fingerinactiveDecember 2023 10:34amOther specified postprocedural statesnoneactiveDecember 2023 10:34amAnxiety and depressionacuteDecember 2023 12:35pmColorectal canceracuteDecember 2023 12:35pmHyperlipidemiaacuteDecember 2023 12:35pmHypertensionacuteDecember 2023 12:35pmInfected fingeracuteDecember 2023 12:35pmInfected fingeracuteDecember 2023 8:10amCellulitis of right middle fingerinactiveDecember 2023 8:10amOther specified postprocedural statesnoneactiveDecember 2023 8:10amInfected fingeracute Mari 2024 8:19amOther specified postprocedural statesnoneactiveJanuary 2024 8:19amInfected fingeracuteFebruary 2024 12:45pmOther specified postprocedural statesnoneactiveFebruary 2024 12:45pmArthritis of finger acuteFebruary 2024 2:43pmInfected fingeracuteFebruary 2024 2:43pm Other specified postprocedural statesacuteFebruary 2024 2:43pm [facility] Work Phone: 1(363) 652-929012-03-2024 Evaluation note* Diagnosis Onset Date Resolution Status Admit Date Infected finger acuteDecember 2023 10:34amCellulitis of right middle fingerinactiveDecember 2023 10:34amOther specified postprocedural statesnoneactiveDecember 2023 10:34amAnxiety and depressionacuteDecember 2023 12:35pmColorectal canceracuteDecember 2023 12:35pmHyperlipidemiaacuteDecember 2023 12:35pmHypertensionacuteDecember 2023 12:35pmInfected fingeracuteDecember 2023 12:35pmInfected fingeracuteDecember 2023 8:10amCellulitis of right middle fingerinactiveDecember 2023 8:10amOther specified postprocedural statesnoneactiveDecember 2023 8:10amInfected fingeracute Mari 2024 8:19amOther specified postprocedural statesnoneactiveJanuary 2024 8:19amInfected fingeracuteFebruary 2024 12:45pmOther specified postprocedural statesnoneactiveFebruary 2024 12:45pmArthritis of finger acuteFebruary 2024 2:43pmInfected fingeracuteFebruary 2024 2:43pm Other specified postprocedural statesacuteFebruary 2024 2:43pmAnxiety and depressionacuteMarch 2024 9:54amColorectal canceracuteMarch 2024 9:54amHyperlipidemiaacuteMarch 2024 9:54amInfected fingeracuteMarch 2024 9:54am [facility] Work Phone: 1(578) 108-120411-21-2024 Evaluation note* Diagnosis Onset Date Resolution Status Admit Date Infected finger acuteNov2023 11:20amCellulitis of right middle fingerinactive May 30, 2024 11:20amInfected fingeracuteDecember 2023 10:34am Cellulitis of right middle fingerinactiveDecember 2023 10:34amOther specified postprocedural statesnoneactiveDecember 2023 10:34amAnxiety and depressionacuteDecember 2023 12:35pmColorectal canceracuteDecember 2023 12:35pmHyperlipidemiaacuteDecember 2023 12:35pmHypertensionacute June 11, 2024 12:35pmInfected fingeracuteDecember 2023 12:35pmInfected fingeracuteDecember 2023 8:10amCellulitis of right middle fingerinactive June 25, 2024 8:10amOther specified postprocedural statesnoneactive June 25, 2024 8:10amInfected fingeracuteJanuary 2024 8:19amOther specified postprocedural statesnoneactiveJanuary 2024 8:19am [facility] Work Phone: 1(200) 354-395411-21-2024 Evaluation note* Diagnosis Onset Date Resolution Status Admit Date Infected finger acuteNovember 2023 11:20amCellulitis of right middle fingerinactive May 30, 2024 11:20amInfected fingeracuteDecember 2023 10:34am Cellulitis of right middle fingerinactiveDecember 2023 10:34amOther specified postprocedural statesnoneactiveDecember 2023 10:34amAnxiety and depressionacuteDecember 2023 12:35pmColorectal canceracuteDecember 2023 12:35pmHyperlipidemiaacuteDecember 2023 12:35pmHypertensionacute June 11, 2024 12:35pmInfected fingeracuteDecember 2023 12:35pmInfected fingeracuteDecember 2023 8:10amCellulitis of right middle fingerinactive June 25, 2024 8:10amOther specified postprocedural statesnoneactive June 25, 2024 8:10amInfected fingeracuteJanuary 2024 8:19amOther specified postprocedural statesnoneactiveJanuary 2024 8:19amInfected finger acuteFebruary 2024 12:45pmOther specified postprocedural statesnoneactive August 14, 2024 12:45pm [facility] Work Phone: 1(583) 926-135910-30-2024 Instructions* Patient Instructions* Colleen Arceo LPN - 05/08/2024 2:04 PM EDT Follow up with Dr. Corona in August prior Signatera prior to follow up documented in this encounterWadsworth-[facility]ittman [facility]10-30-2024 NoteHNO ID: [id number] Author: TAPAN CORONA MD Service: ? Author Type: Physician Type: Progress Notes Filed: 05/08/2024 14:21 Note Text: PATIENT NAME: Evan Romo [facility] NO.: [id number] ATTENDING PHYSICIAN: Tapan Corona MD DATE OF [...] Ref Range Status 02/06/20 (more content not included)...[facility]10-30-2024 History of Present illness Narrative* Tapan Corona MD - 05/08/2024 1:56 PM EDT Images from the original note were not included. PATIENT NAME: Evan Gill CLINIC NO.: [id number] ATTENDING PHYSICIAN: Tapan Corona MD DATE OF [...] Range Status 02/06/2024 6.6 % Final Abs [place] Date Value Ref Range Status 02/06/2024 0.29 [...] do not hesitate to contact me at [phone]. Tapan Corona MD Hematology/Medical Oncology [facility] Giordano spent a total of 30 minutes on the date of the service which included preparing to see the patient, pkof-ak-niko patient care, completing clinical documentation, obtaining and/or reviewing separately obtained history, performing a medically appropriate examination, counseling and educating the pat ient/family/caregiver, and ordering medications, tests, or procedures. CC: documented in this encounterWadsworth-Rittman Hospital10-02-2024 History of Present illness Narrative* Del [...] Del Hudson MD cc: Charles Bazzi DO [address] [place] [id number] No referring provider defined for this encounter. documented in this encounterWadsworth-Rittman Hospital08-14-2024 Telephone encounter Note * Telephone Encounter - Kari Carrillo RN - 02/21/2024 11:23 AM EDT Pt notified of negative signatera result and denies questions, needs or concerns at this time. Kari Carrillo RN [facility]08-14-2024 Miscellaneous Notes* Telephone Encounter - Kari Carrillo RN - 02/21/2024 11:23 AM EDT Pt notified of negative signatera result and denies questions, needs or concerns at this time. Kari Carrillo RN documented in this encounterWadsworth-Rittman Hospital07-30-2024 Telephone encounter Note * Telephone Encounter - Amalia Martin - 02/06/2024 2:18 PM EDT Called patient and scheduled labs, signatera and 3 [facility] [place] [facility]07-30-2024 Miscellaneous Notes* Telephone Encounter - Amalia Martin - 02/06/2024 2:18 PM EDT Called patient and scheduled labs, signatera and 3 month follow up in [place] with Cj for 05/08 * Telephone Encounter - Jessika Platt - 02/06/2024 1:45 PM EDT Images from the original note were not included. documented in this encounterWadsworth-Rittman Hospital07-30-2024 Telephone encounter Note * Telephone Encounter - Jessika Platt - 02/06/2024 1:45 PM EDT Images from the original note were not included. [facility]07-30-[facility] History of Present illness Narrative* Tapan Corona MD - 02/06/2024 11:34 AM EDT Images from the original note were not included. PATIENT NAME: Evan Gill CLINIC NO.: [id number] ATTENDING PHYSICIAN: Tapan Corona MD DATE OF [...] Range Status 02/06/2024 6.6 % Final Abs [place] Date Value Ref Range Status 02/06/2024 0.29 [...] do not hesitate to contact me at [phone]. Tapan Corona MD Hematology/Medical Oncology [facility] Ghassan Giordano spent a total of 30 minutes on the date of the service which included preparing to see the patient, qxnf-vq-dxfu patient care, completing clinical documentation, obtaining and/or reviewing separately obtained history, performing a medically appropriate examination, counseling and educating the pat ient/family/caregiver, and ordering medications, tests, or procedures. CC: documented in this encounterWadsworth-Rittman Hospital07-09-2024 Telephone encounter Note * Telephone Encounter - [...] office back with any questions or concerns. [facility]07-09-2024 Miscellaneous Notes* Telephone Encounter - Cierra Lindquist [...] reversal with Dr. Sullivan November 05. Contact# [phone] documented in this encounterWadsworth-Rittman Hospital07-09-2024 Telephone encounter Note * Telephone Encounter - Amber Dhaliwal - 01/16/2024 11:30 AM EDT Patient called in and has a small opening at her surgical site. Patient had a reversal with Dr. Sullivan November 05. Contact# [phone] [facility]07-02-2024 History of Present illness Narrative* Laisha Singer [...] stenosis, but able to pass a digit. Kiln Stoker present: Yes, KAYA Sykesbi technical lead Assessment and Plan: Evan Gill is a [...] which included preparing to see the patient, rtga-km-arnt patient care, completing clinical documentation, obtaining and/or reviewing separately obtained history, performing a medically appropriate examination, counseling and educating the pat ient/family/caregiver, and care coordination (not separately reported). Laisha Singer MD Colorectal Surgery documented in this encounterWadsworth-Rittman Hospital07-01-2024 Telephone encounter Note * Telephone Encounter - Colleen Solorio RN - 01/08/2024 10:36 AM EDT Pt calls stating she received a call from [facility] to schedule a date to come out [...] herother labs that day. Colleen Solorio RN [facility] Work Phone: [phone]) [phone] Miscellaneous Notes* Telephone Encounter - Colleen Solorio RN - 01/08/2024 10:36 AM EDT Pt calls stating she received a call from [facility] to schedule a date to come out [...] day. Colleen Solorio RN documented in this encounterWadsworth-Rittman Hospital06-12-2024 Telephone encounter Note * Telephone Encounter - Colleen Solorio RN - 12/20/2023 11:29 AM EDT Pt calls stating she's scheduled to have a consult with on 01/16 to have port removed. Colleen Solorio RN [facility] Work Phone: 1([phone]) 588-479706-12-2024 Miscellaneous Notes* Telephone Encounter - Colleen Solorio [...] you Prachi Gill, RN documented in this encounterWadsworth-Rittman Hospital06-12-2024 Telephone encounter Note * Telephone Encounter - Kristin Martinez - 12/20/2023 10:35 AM EDT Called Evan to see if she had gotten their message to call to schedule. She did not so I gave hertheir phone number to call and get that scheduled. [facility]06-11-2024 Telephone encounter Note* Telephone Encounter - Kristin Martinez - 12/19/2023 9:14 AM EDT Order was received and they did call patient. Waiting on Kathrynas response to get scheduled. [facility]06-10-2024 Telephone encounter Note* Telephone Encounter - Kristin Martinez - 12/18/2023 9:50 AM EDT Refaxed order 12/18/2023 at 9:50 am. I was told as soon as they get the order they will call the patient. [facility]06-06-2024 Telephone encounter Note* Telephone Encounter - Kristin Martinez - 12/14/2023 9:13 AM EDT Faxed order to , will call office to make sure they got it and scheduling information. [facility]06-05-2024 Telephone encounter Note* Telephone Encounter - Prachi Gill, KAYA - 12/13/2023 9:31 AM EDT Please sign order. Thanks!! Prachi Gill RN [facility]06-05-2024 Telephone encounter Note* Telephone Encounter - Kristin Martinez - 12/13/2023 8:52 AM EDT Hi there, I would be happy to get this removal started, could you please enter an order for me? Thank you Kristin [facility]06-05-2024 Telephone encounter Note* Telephone Encounter - Prachi Gill RN - 12/13/2023 8:26 AM EDT Please arrange for port removal. Prachi Gill RN [facility]06-04-2024 Telephone encounter Note* Telephone Encounter - Tapan Corona MD - 12/12/2023 5:58 PM EDT Yes. Please remove [facility]06-04-2024 Telephone encounter Note* Telephone Encounter - Prachi Gill RN - 12/12/2023 8:25 AM EDT Pt is wondering when she can get her port removed? She had it placed for 5FU which she was unable to tolerate. Is it ok to have this removed at this point? Even at her inpatient admissions/surgeries,they have not used her port. Please advise. Thank you Prachi Gill RN [facility]05-17-2024 History of Present illness Narrative* Brandie Salmeron, OPTICAL DESIGN ENGINEER.[employer] - 11/24/2023 3:40 PM EDT COLORECTAL SURGERY November 24, 2023 Evan Gill 68 year old This consult was requested by Dr. Singer and my final recommendations will be communicated to the requesting health care provider by way of the shared medical record for internal providers or letter viathe [employer] for external providers. Chief Complaint: [...] Salmeron APRN.MERARY Colorectal Surgery documented in this encounterWadsworth-Rittman Hospital05-14-2024 Telephone encounter Note * Telephone Encounter - Cierra Lindquist RN - 11/21/2023 1:07 PM EDT Orders placed. [facility]05-14-2024 Miscellaneous Notes* Telephone Encounter - Cierra Lindquist RN - 11/21/2023 1:07 PM EDT Orders placed. documented in this encounterWadsworth-Rittman Hospital05-06-2024 Telephone encounter Note * Telephone Encounter - Colleen Solorio RN - 11/13/2023 3:49 PM EDT DISCHARGE CALL BACK Today's date: November 13, 2023 Notified of Pt discharge by: hosp ADT folder Patient discharged on 11/10/23 from [facility] to Home Primary Cancer Diagnosis: rectal cancer Admitting Diagnosis: small bowel obstruction Discharge Summary/SBAR reviewed: Yes Handoff Discussed with Transitional Employment Specialist/Program Manager: No, unavailable Psychosocial Risk Factors: None If [...] discharge Patient reminded of follow-up appointment with [facility] provider, Dr Corona on 01/16/24: [...] weekend phone number? YES Colleen Solorio RN [facility] Work Phone: [phone]) [phone] Miscellaneous Notes* Telephone Encounter - Colleen Solorio RN - 11/13/2023 3:49 PM EDT DISCHARGE CALL BACK Today's date: November 13, 2023 Notified of Pt discharge by: hosp ADT folder Patient discharged on 11/10/23 from [facility] to Home Primary Cancer Diagnosis: rectal cancer Admitting Diagnosis: small bowel obstruction Discharge Summary/SBAR reviewed: Yes Handoff Discussed with Transitional Employment Specialist/Program Manager: No, unavailable Psychosocial Risk Factors: None If [...] discharge Patient reminded of follow-up appointment with [facility] provider, Dr Corona on 01/16/24: [...] YES Colleen Solorio RN documented in this encounterWadsworth-Rittman Hospital05-03-2024 [facility]-10-2023 NoteHolyoke Medical [id number] Telephone encounter Note* Telephone Encounter - Colleen Solorio RN - 11/10/2023 11:27 AM EDT [facility] results received and pt notified that this was negative. Colleen Solorio RN [facility] Work Phone: 1([phone]) 576-386305-03-2024 Miscellaneous Notes* Telephone Encounter - Colleen Solorio RN - 11/10/2023 11:27 AM EDT [facility] results received and pt notified that this was negative. Colleen Solorio RN * Telephone Encounter - Colleen Solorio RN - 11/02/2023 12:28 PM EDT Call placed to [facility] to follow up on results. They have not received results yet from [facility]. Lola spoke with Daksha at [facility]. She states this testing is still in [...] states it has not. Request faxed to [facility] pathology again, as well as the [facility] order. oClleen Solorio RN * Telephone Encounter - Colleen Solorio RN - 10/17/2023 3:04 PM EDT Call received from Sonia at [facility] pathology stating they haven't ordered Signatera before. Order signed and faxed to [facility] as well as Sonia at [facility]. Colleen Solorio RN * Telephone Encounter - Colleen Solorio RN - 10/17/2023 1:51 PM EDT Email received that there is no residual tumor for [facility] to be ordered on [id number]. Discussed with Dr Corona and he would like this added to [facility] P90- [id number]. Request faxed to [facility] today. Colleen Solorio RN documented in this encounterWadsworth-Rittman [facility]05-02-2024 [facility]Holy[facility] 11-09-2023 NoteHolyoke Medical [id number] NoteHolyoke Medical [id number] Note [facility] [id number] NoteHolyoke Medical [id number] NoteHolyoke Medical [id number] NoteHolyoke Medical [id number] Telephone encounter Note* Telephone Encounter - Cierra Lindquist RN - 11/06/2023 1:31 PM EDT Noted. Informed team that she will be coming to the emergency room for concerns of a bowel obstruction. [facility]04-29-2024 Miscellaneous Notes* Telephone Encounter - Cierra Lindquist [...] seeing Dr. Singer tomorrow in clinic. Contact# [phone] documented in this encounterWadsworth-Rittman Hospital04-29-2024 Telephone encounter Note * Telephone Encounter - Tapan Corona MD - 11/06/2023 1:22 PM EDT Oh no and thanks for the update [facility]04-29-2024 Miscellaneous Notes* Telephone Encounter - Tapan Corona MD - 11/06/2023 1:22 PM EDT Oh no and thanks for the update * Telephone Encounter - Colleen Solorio RN - 11/06/2023 12:50 PM EDT Pt's daughter notified of results. Daughter states pt is currently in the ER at [facility] with a possible bowel obstruction. Pt was scheduled for follow up appointment with Dr Singer tomorrow so they arehopeful that she'll be able to see her today. Colleen Solorio RN * Telephone Encounter - Colleen Solorio RN - 11/06/2023 12:48 PM EDT ----- Message from Tapan Corona MD sent at 11/06/2023 7:12 AM EDT ----- Please call with negative Signatera documented in this encounterWadsworth-Rittman Hospital04-29-2024 Telephone encounter Note * Telephone Encounter - Colleen Solorio RN - 11/06/2023 12:50 PM EDT Pt's daughter notified of results. Daughter states pt is currently in the ER at [facility] with a possible bowel obstruction. Pt was scheduled for follow up appointment with Dr Singer tomorrow so they arehopeful that she'll be able to see her today. Colleen Solorio RN [facility] Work Phone: [phone] Telephone encounter Note* Telephone Encounter - Colleen Solorio RN - 11/06/2023 12:48 PM EDT ----- Message from Tapan Corona MD sent at 11/06/2023 7:12 AM EDT ----- Please call with negative Signatera [facility]04-29-2024 Telephone encounter Note* Telephone Encounter - LiliMaggie maderafer - 11/06/2023 11:34 AM EDT Patients Mom [...] seeing Dr. Singer tomorrow in clinic. Contact# [phone] [facility]04-25-2024 Telephone encounter Note* Telephone Encounter - Colleen Solorio RN - 11/02/2023 12:28 PM EDT Call placed to [facility] to follow up on results. They have not received results yet from [facility]. Lola spoke with Daksha at [facility]. She states this testing is still in progress. Blood sample received 10/11, tissue sample received 10/18. Final report should be available in 3-4 wks from 10/18 if no repeat or redraws are needed (which would be 11/08-11/15). Colleen Solorio RN [facility]04-20-2024 Progress note Author Ion [facility] October 28, 2023 10:25amNote Date/TimeApril 2023 10:25[place] [address] General Surgery Progress Note Signed Patient: vEan Gill MR#: [id number] : 1955 Acct:[id number] Age/Sex: 68 / F Adm Date: 4 Loc: Room: [address] [place] [address] Type: ADM IN Attending Dr: Jm Trujillo DO Copies to: ~ Date of Service: 10/28/2023 Subjective Subjective HPI: Patient is doing really well. She is not having any nausea or vomiting. She iseating without any difficulty. She has had good ileostomy output. Occasionallyshe gets little bit of cramping but that isnot unusual for her. She is not having any of the problems that she had when she came. Allergies & Medications Medications and Allergies Allergies No Known Allergies Allergy (Verified 10/25/23 20:17) Home Medications aspirin 81 mg tablet,delayed release 81 mg PO DAILY health maintenance 11/02/18 [History Confirmed 10/26/23] omega 7-kwk-ocf-fish oil 1,000 mg (120 mg-180 mg) capsule [...] mg/mL subcutaneous syringe (Prolia) 60 mg subcut [id number] 06/26/23 [History Confirmed 10/26/23] progesterone micronized 100 [...] 40 Mg Vial) 40 mg IV-PUSH DAILY YUMIKO Stop: 10/25/24 08:59 Last Admin: 10/27/23 09:06 [...] % (Auto) 66.8, Lymph % (Auto) 13.6, [place] % (Auto) 11.9, Eos % (Auto) 7.1, Baso % (Auto) 0.6, Nucleat RBC Rel Count 0.1, Neut # (Auto) 3.8, Lymph # (Auto) 0.8 L, [place] # (Auto) 0.7, Eos # (Auto) 0.4, Baso # (Auto) 0.0, PHA CreatinineClear 61.83, Sodium 141, Potassium 3.9, Chloride 104, Carbon Dioxide 31.8 H, Anion Gap 9.1, BUN 11,Creatinine 0.60, Est GFR (CKD-EPI) > 60.0 10/27/23 06:33: POC Glucose 71 10/27/23 05:42: Corrected WBC 7.9, Uncorrected WBC Count 7.9, RBC 3.80, Hgb 11.4L, Hct 34.0, MCV 89.6, MCH 29.9, MCHC 33.4, RDW 15.3, Plt Count 304, MPV 6.5, Neut % (Auto) 72.0, Lymph % (Auto) 10.5, [place] % (Auto) 11.5, Eos % (Auto) 5.6, Baso % (Auto) 0.4, Nucleat RBC Rel Count 0.0, Neut # (Auto) 5.7, Lymph # (Auto) 0.8 L, [place] # (Auto) 0.9 H, Eos # (Auto) 0.4, Baso # (Auto) 0.0, PHA Creatinine Clear 56.50, Sodium 140, Potassium 3.7, Chloride 102, Carbon Dioxide 27.1, AnionGap 14.6, BUN 23, Creatinine 0.65, Est GFR (CKD-EPI) > 60.0 Microbiology Microbiology 10/25/23 22:37 Urine - Clean-Voided Midstream Urine Culture - Final 25,000 colonies/ml mixed bacterial skin contaminants 2 Days 04/17/24 23:19 Blood - Right Antecubital Blood Culture [...] surgeon Dr. Singer to let her know aboutthis episode and ifsooner reevaluation. Documented By: Ion Eckert DO 10/28/23 1023 Signed By: <Electronically signed by DO Ion Eckert> 10/28/23 1025 [facility] Work Phone: 1([phone]) 515-825904-19-2024 Telephone encounter Note* Telephone Encounter - Colleen Solorio RN - 10/27/2023 3:47 PM EDT Sonia calls back stating she looked into this a little further and she did send this specimen out on 10/18/23. Colleen Solorio RN [facility]04-19-2024 Progress note Author Jm Trujillo [facility] October 27, 2023 10:34amNote Date/TimeApril 2023 10:34[place] [address] Hospitalist Progress Note Signed Patient: Evan Gill MR#: [id number] : 1955 Acct:[id number] Age/Sex: 68 / F Adm Date: 4 Loc: Room: [address] [place] [address] Type: ADM IN Attending Dr: Jm Trujillo DO Copies to: ~ Date of Service: 10/27/2023 Subjective Subjective Narrative: The patient reports that after the suppository was placed into the ileostomy yesterday she began having movement. She said the material was very firm and thick at first. Now she is getting a lot ofliquid. She says this is typical for her. Spasmodic pain in her intestines is much improved today. The last time she had to be medicated with pain medicine was last night. She did not have any nauseanow. The nurses remove the NG tube the [...] She may need additional IV fluids, and shemay need placement of the NG tube back into the stomach again if anything should worsen. This will be reevaluatedtomorrow morning after 24 hours more time in the hospital. Documented By: Jm Trujillo DO 1031 Signed By: <Electronically signed by Jm Trujillo DO> 10/27/23 1034 [facility] Work Phone: 1(859) 788-791804-19-2024 Progress note Author Ion [facility] October 27, 2023 10:04amNote Date/TimeApril 2023 10:04[place] [address] General Surgery Progress Note Signed Patient: Evan Gill MR#: [id number] : 1955 Acct:[id number] Age/Sex: 68 / F Adm Date: 4 Loc: 4N Room: 1B1319-8 Type: ADM IN Attending Dr: Jm Trujillo [...] health maintenance 11/02/18 [History Confirmed 10/26/23] omega 3-ixj-naq-fish oil 1,000 mg (120 mg-180 mg) capsule [...] mg/mL subcutaneous syringe (Prolia) 60 mg subcut [id number] 06/26/23 [History Confirmed 10/26/23] progesterone micronized 100 [...] 1,000 mls @ 100 mls/hr IV .Q10H [facility] Stop: 10/25/24 01:44 Last Admin: 10/27/23 05:41 Dose: 100 mls/hr Ceftriaxone Sodium (Rocephin) 1 gm in 50 mls @ 100 mls/hr IV Q24H [facility] Last Admin: 10/27/23 01:56 Dose: 100 mls/hr Ondansetron HCl (Ondansetron 4 Mg/2 Ml Vial) 4 mg IV-PUSH Q6H PRN PRN Reason: Nausea And Vomiting Stop: 10/25/24 01:37 Last Admin: 10/26/23 11:41 Dose: 4 mg Pantoprazole Sodium (Pantoprazole 40 Mg Vial) 40 mg IV-PUSH DAILY [facility] Stop: 10/25/24 08:59 Last Admin: 10/27/23 09:06 [...] 10 Ml Syringe) 0 ml IV-PUSH QSHIFT [facility] Stop: 10/25/24 05:59 Last Admin: 10/27/23 05:41 [...] % (Auto) 72.0, Lymph % (Auto) 10.5, [place] % (Auto) 11.5, Eos % (Auto) 5.6, Baso % (Auto) 0.4, Nucleat RBC Rel Count 0.0, Neut # (Auto) 5.7, Lymph # (Auto) 0.8 L, [place] # (Auto) 0.9 H, Eos # (Auto) [...] % (Auto) 80.3, Lymph % (Auto) 8.5, [place] % (Auto) 9.5, Eos % (Auto) 0.9, Baso % (Auto) 0.8, Nucleat RBC Rel Count 0.0, Neut # (Auto) 8.5 H, Lymph # (Auto) 0.9 L, [place] # (Auto) 1.0 H, Eos # (Auto) 0.1, Baso # (Auto) 0.1, PHA CreatinineClear 53.18, Sodium 138, Potassium 4.8, Chloride 102, Carbon Dioxide 29.4, Anion Gap 11.4, BUN 19, Creatinine 0.85, Est GFR (CKD-EPI) > 60.0, [id number] H, Calcium 9.3, Magnesium 2.0 10/25/23 23:19: Troponin I High Sens 4.9 10/25/23 22:37: Urine Color Yellow, Urine Appearance Clear, Urine pH 5.5, Ur Specific [place] 1.037H, Urine Protein Negative, Urine Glucose (UA) Normal, [...] Total Protein 7.3, Albumin 4.4, Globulin 2.9, Albumin/GlobulinRatio 1.5 10/25/23 20:27: Corrected WBC 14.4 H, Uncorrected WBC Count 14.4 H, RBC 4.39, Hgb 12.9, Hct 38.4, MCV 87.5, MCH 29.3, MCHC 33.5, RDW 15.5 H, Plt Count 397, MPV 6.4, Neut % (Auto) 75.5, Lymph % (Auto)14.9, [place] % (Auto) 6.7, Eos % (Auto) 2.2, Baso % (Auto) 0.7, Nucleat RBC Rel Count 0.0, Neut # (Auto) 10.9 H, Lymph # (Auto) 2.2, [place] # (Auto) 1.0 H, Eos # (Auto) [...] signed by DO Ion Eckert> 10/27/23 1004 [facility] Work Phone: 1(882) 642-272604-18-2024 Telephone encounter Note* Telephone Encounter - Colleen Solorio RN - 10/26/2023 1:50 PM EDT Call placed to Sonia to see if this has been sent out yet. She states it has not. Request faxed to [facility] pathology again, as well as the Neel order. Colleen Solorio RN [facility]04-18-2024 Consult note Author Ion Eckert [facility] October 26, 2023 11:12amNote Date/TimeApril 2023 11:12[place] [address] General Surgery Consult Note Signed Patient: Evan Gill MR#: [id number] : 1955 Acct:[id number] Age/Sex: 68 / F Adm Date: 4 Loc: 4N Room: 04 [place] [address] Type: ADM IN Attending Dr: Jm Trujillo DO Copies to: Charles Bazzi,DO Ion Daley DO~ History of Present Illness Date of [...] her dietwith a low fiber diet in [facility]. She was admitted here in September waiting for bed at [facility] and her obstruction improved after about a [...] She was set to be transferred to [facility] but they are waiting on transport/beds. Currently she has much less abdominal pain although still a little bitof cramping occasionally. Not putting out anything into the ileostomy. She is not having any nauseaor vomiting. The NG tube annoying but she can tolerate it. She is not having much coming out of it. History of the open cholecystectomy back in the 70s. She had the robotic low anterior resection with loop ileostomy in August 2023. She had radiation and chemotherapy. Dr. Laisha singer was her surgeon at [facility] Review of Systems Review of Systems All other systems reviewed & are negative unless noted below or in HPI [facility] Medical History Rectal cancer Colorectal cancer [...] health maintenance 11/02/18 [History Confirmed 10/26/23] omega 4-jho-xzt-fish oil 1,000 mg (120 mg-180 mg) capsule [...] mg/mL subcutaneous syringe (Prolia) 60 mg subcut [id number] 06/26/23 [History Confirmed 10/26/23] progesterone micronized 100 [...] Ringers) 1,000 mls @ 75 mls/hr IV .[id number] [facility] Stop: 10/25/24 01:44 Last Admin: 10/26/23 04:12 Dose: 75 mls/hr Ceftriaxone Sodium (Rocephin) 1 gm in 50 mls @ 100 mls/hr IV Q24H [facility] Last Admin: 10/26/23 04:11 Dose: 100 mls/hr Lactated Ringer's (Lactated Ringers) 1,000 mls @ 999 mls/hr IV .Q1H1M [facility] Stop: 10/26/23 11:28 Ondansetron HCl (Ondansetron 4 Mg/2 Ml Vial) 4 mg IV-PUSH Q6H PRN PRN Reason: Nausea And Vomiting Stop: 10/25/24 01:37 Pantoprazole Sodium (Pantoprazole 40 Mg Vial) 40 mg IV-PUSH DAILY [facility] Stop: 10/25/24 08:59 Last Admin: 10/26/23 09:11 [...] firm bulge or parastomal hernia noted. There isno pain with palpation around the stoma. Extremities [...] % (Auto) 80.3, Lymph % (Auto) 8.5, [place] % (Auto) 9.5, Eos % (Auto) 0.9, Baso % (Auto) 0.8, Nucleat RBC Rel Count 0.0, Neut # (Auto) 8.5 H, Lymph # (Auto) 0.9 L, [place] # (Auto) 1.0 H, Eos # (Auto) 0.1, Baso # (Auto) 0.1, PHA CreatinineClear 53.18, Sodium 138, Potassium 4.8, Chloride 102, Carbon Dioxide 29.4, Anion Gap 11.4, BUN 19, Creatinine 0.85, Est GFR (CKD-EPI) > 60.0, [id number] H, Calcium 9.3, Magnesium 2.0 10/25/23 23:19: Troponin I High Sens 4.9 10/25/23 22:37: Urine Color Yellow, Urine Appearance Clear, Urine pH 5.5, Ur Specific [place] 1.037H, Urine Protein Negative, Urine Glucose (UA) Normal, [...] Total Protein 7.3, Albumin 4.4, Globulin 2.9, Albumin/GlobulinRatio 1.5 10/25/23 20:27: Corrected WBC 14.4 H, Uncorrected WBC Count 14.4 H, RBC 4.39, Hgb 12.9, Hct 38.4, MCV 87.5, MCH 29.3, MCHC 33.5, RDW 15.5 H, Plt Count 397, MPV 6.4, Neut % (Auto) 75.5, Lymph % (Auto)14.9, [place] % (Auto) 6.7, Eos % (Auto) 2.2, Baso % (Auto) 0.7, Nucleat RBC Rel Count 0.0, Neut # (Auto) 10.9 H, Lymph # (Auto) 2.2, [place] # (Auto) 1.0 H, Eos # (Auto) [...] signed by DO Ion Eckert> 10/26/23 1112 [facility] Work Phone: 1(258) 188-340104-18-2024 Progress note Author Jm Trujillo [facility] October 26, 2023 10:34amNote Date/TimeApril 2023 10:[place] [id number] Hospitalist Progress Note Signed Patient: Evan Gill MR#: [id number] : 1955 Acct:[id number] Age/Sex: 68 / F Adm Date: 4 Loc: 4N Room: 3Q7992-7 Type: ADM IN Attending Dr: Jm Trujillo [...] The second SBO was on September 29, about3 weeks ago, and that SBO suddenly released [...] Lactated Ringers IV 10/25/24 01:44 75 mls/hr .[id number] YUMIKO Administration Ceftriaxone Sodium 1 gm in [...] surgery ? May transfer to [facility] when bed available ? NG [...] L of lactated Ringer's to be given outof holosystolic over a hour or 2. I [...] signed by Jm Trujillo, > 10/26/23 1034 [facility] Work Phone: 1(232) 338-656904-18-2024 History and physical note Author Patrice Hooks [facility] October 26, 2023 4:08amNote Date/TimeApril 2023 1:48[place] [address] Hospitalist H&P Signed Patient: Evan Gill MR#: [id number] : 1955 Acct:[id number] Age/Sex: 68 / F Adm Date: 4 Loc: 4 Room: [address] [place] [address] Type: ADM IN Attending Dr: Patrice Hooks MD Copies to: MD Charles Peng DO Paula G Smith, OPTICAL DESIGN ENGINEER~ HPI DATE OF EXAMINATION: 10/26/23 CHIEF COMPLAINT: abdominal pain HISTORY OF PRESENT ILLNESS: Attending note: I saw the patient personally on the day of encounter. I reviewed the relevant history, and performed the guzman elements of the physical examination. I reviewedthe relevant laboratory workup, radiological studies and the current treatment plan. I formulated the plan of care and confirmed it with the re sident/student/CORE COMPOSER MACHINE TENDER. Ms. Gill is a 68-year-old female with a PMH of rectal cancer s/p chemoradiationproctosigmoidectomymanage ileostomy placement the presents to the emergency [...] unremarkable. D-dimer 312. CMP with asodium 133, gluco se 132, direct bilirubin 0.2, AST 52, otherwise unremarkable. 2 troponins were drawn, 6.3 and 4.9. UA with clear, yellow urine, specific gravity 1.037, trace of occult blood, 2+ leukocytes, 10-19 WBCs, no bacteria seen. Urine culture and blood cultures are pending. Patient received 1 L saline bolus, Zofran, fentanyl, ketorolac, Compazine, Benadryl and Zosyn. Patient's proctosigmoidectomy was performed at [facility], surgeon was contacted there per the ER physician and the patientwas accepted however we are waiting on a bed. She will be admitted as inpatient to the medical floor while awaiting a bed. Review of Systems Review of Systems Review of systems: A 10 point review of systems was obtained, negative unless noted in the HPI or below. [facility] Medical History Rectal cancer Colorectal cancer [...] health maintenance 11/02/18 [History Confirmed 10/26/23] omega 3-nbq-fcm-fish oil 1,000 mg (120 mg-180 mg) capsule [...] mg/mL subcutaneous syringe (Prolia) 60 mg subcut [id number] 06/26/23 [History Confirmed 10/26/23] progesterone micronized 100 [...] 10/25/23 20:27 RBC 4.39 X10E6/uL (3.60-5.00) 10/25/23 20: Hgb 12.9 g/dL (11.8-15.4) 10/25/23: Hct 38.4 % (34.0-46.4) 10/25/23 20: MCV 87.5 fl (80-100) 10/25/23: MCH 29.3 pg (24.7-34.3) 10/25/23: MCHC 33.5 g/dL (32.0-35.0) 10/25/23: RDW 15.5 % (11.9-15.3) H 10/25/23: Plt Count 397 x10E3/uL (150-450) 10/25/23 MPV 6.4 fl (6.3-10.7) 10/25/23: Neut % (Auto) 75.5 % (.) 10/25/23: Lymph % (Auto) 14.9 % (.) 10/25/23: [place] % (Auto) 6.7 % (.) 10/25/23: Eos % (Auto) 2.2 % (.) 10/25/23: Baso % (Auto) 0.7 % (.) 10/25/23 Nucleat RBC Rel Count 0.0 /100 WBC (0-0.5) 10/25/23: Neut # (Auto) 10.9 x10E3/uL (1.8-7.7) H 10/25/23: Lymph # (Auto) 2.2 x10E3/uL (1.00-4.8) 10/25/23: [place] # (Auto) 1.0 x10E3/uL (0.0-0.8) H 10/25/23: Eos # (Auto) 0.3 x10E3/uL (0.0-0.45) 10/25/23: Baso # (Auto) 0.1 x10E3/uL (0.0-0.2) 10/25/23: Monocyte Dist Width 18.93 % (0.00-20.00) 10/25/23: PT 11.4 Seconds (9.0-12.9) 10/25/23 20: INR 1.0 10/25/23 20: APTT 25.0 Seconds (25.1-36.5) L 10/25/23 20:27 D-Dimer Quant (PE/DVT) 312 ng/mL (0-243) H 10/25/23 20: D-Dimer Quant (PE/DVT) Cancelled 10/25/23 20: PHA Creatinine Clear 61.55 10/25/23 20:27 Sodium 133 mmol/L (136-145) L D 10/25/23 20: Potassium 4.0 mmol/L (3.5-5.1) 10/25/23 20: Chloride 100 mmol/L (98-107) 10/25/23 20: Carbon Dioxide 21.9 mmol/L (21.0-31.0) 10/25/23 20: Anion Gap 15.1 mEq/L (6.0-15.0) H 10/25/23 20: BUN 20 mg/dL (7-25) 10/25/23 20: Creatinine 0.67 mg/dL (0.60-1.20) 10/25/23 20: Est GFR (CKD-EPI) > 60.0 mL/Min 10/25/23 [...] 20: Total Creatine Kinase 128 U/L (30-223) 10/25/23: Troponin I High Sens 4.9 pg/mL (0.0-15.0) 10/25/23 23:19 B-Natriuretic Peptide 42.0 pg/mL (5-100) 10/25/23 20: Total Protein 7.3 gm/dL (6.4-8.9) 10/25/23 20: Albumin 4.4 gm/dL (3.5-5.7) 10/25/23 20: Globulin 2.9 gm/dL 10/25/23 20: Albumin/Globulin Ratio 1.5 10/25/23 20: Urine Color Yellow (Yellow) 10/25/23 22:37 Urine Appearance Clear (Clear) 10/25/23 22:37 Urine pH 5.5 (5.0-9.0) 10/25/23 22:37 Ur Specific [place] 1.037 (1.001-1.030) H 10/25/23 22:37 Urine Protein [...] surgery ? May transfer to [facility] when bed available ? NG [...] setting as: INPATIENT because of an expectation ofan over 2 midnight stay. Estimated length of stay (# of days): 3 Documented By: Ethel Saucedo APRN 10/26/23 0148 Signed By: <Electronically signed by ROXY Saucedo> 10/26/23 0211 <Electronically signed by Patrice Hooks MD> 10/26/23 0408 [facility] Work Phone: 1([phone]) 629-591404-17-2024 Miscellaneous Notes* Telephone Encounter - Cierra Lindquist RN - 10/25/2023 2:44 PM EDT Returned call. She states she is having the signs of another small bowel obstruction. She has not had stool in her ostomy since 3am. She is requesting pain medication to relax her bowels. She states that is what [facility] did to help her have bowel movements [...] ER and is requesting pain medication. Contact# [phone] documented in this encounterWadsworth[facility]04-09-2024 Telephone encounter Note * Telephone Encounter - Colleen Solorio RN - 10/17/2023 3:04 PM EDT Call received from Sonia at [facility] pathology stating they haven't ordered Signatera before. Order signed and faxed to Neel as well as Sonia at [facility]. Colleen Solorio RN [facility]04-09-2024 Telephone encounter Note* Telephone Encounter - Colleen Solorio RN - 10/17/2023 1:51 PM EDT Email received that there is no residual tumor for Neel to be ordered on [id number]. Discussed with Dr Corona and he would like this added to [facility] [id number]. Request faxed to [facility] today. Colleen Solorio RN [facility]04-02-2024 History of Present illness Narrative* Dheeraj [...] 2023 Time: 1:37 PM documented in this encounterWadsworth-[facility]ittman [facility]04-02-2024 History of Present illness Narrative* Del Hudson [...] by: Del Hudson MD cc: Charles Bazzi, [address] [place] [phone] No referring provider defined for this encounter. documented in this encounterWadsworth-Rittman Hospital04-02-2024 History of Present illness Narrative* Tapan Corona MD - 10/10/2023 11:06 AM EDT Images from the original note were not included. PATIENT NAME: Evan Gill CLINIC NO.: [id number] ATTENDING PHYSICIAN: Tapan Corona MD DATE OF [...] Range Status 08/31/2023 7.2 % Final Abs [place] Date Value Ref Range Status 08/31/2023 0.67 [...] do not hesitate to contact me at [phone]. Tapan Corona MD Hematology/Medical Oncology [facility] Ghassan Giordano spent a total of 30 minutes on the date of the service which included preparing to see the patient, cktx-bf-iocg patient care, completing clinical documentation, obtaining and/or reviewing separately obtained history, performing a medically appropriate examination, counseling and educating the pat ient/family/caregiver, and ordering medications, tests, or procedures. CC: documented in this encounterWadsworth-[facility]ittman [facility]03-24-2024 Progress note Author Tim Garduno [facility] October 01, 2023 1:12pmNote Date/TimeMarch 2023 10:31[place] [address] Hospitalist Progress Note Signed with Addenda Patient: Evan Gill MR#: [id number] : 1955 Acct:[id number] Age/Sex: 68 / F Adm Date: 4 Loc: Room: [address] [place] [address] Type: ADM IN Attending Dr: Tim Garduno [...] any nausea,vomiting. She does report some abdominal crampsprecedes output coming out fromostomy. Otherwise she is [...] heparin Documented By: Tim Garduno MD 10/01/23 29 Signed By: <Electronically signed by Tim Garduno MD> 10/01/23 [facility]3 [facility] Work Phone: 1(705) 948-327103-23-2024 Progress note Author Tim Garduno [facility] September 30, 2023 11:15amNote Date/TimeMarch 2023 11:15[place] [id number] Progress Note Signed Patient: Evan Gill MR#: [id number] : 1955 Acct:[id number] Age/Sex: 68 / F Adm Date: 4 Loc: Room: [address] [place] [address] Type: ADM IN Attending Dr: Tim Garduno MD Copies to: ~ Date of Service: 09/30/2023 Progress Narrative Note SBO PROGRESS NOTE Progress Note: Case was discussed with patient's surgeon at [facility] Dr. Durán, hereviewed her CT scan that was done here and showed SBO and suggested to provide IV fluids and ostomy irrigation/enema and hopefully she will improve with conservative management and save the trip back to [place]. He states if she does not improve [...] Documented By: Tim Garduno MD 09/30/23 11 Signed By: <Electronically signed by Tim Garduno MD> 09/30/23 1115 [facility] Work Phone: 1(343) 652-264003-23-2024 Consult note Author Cristhian Vargas [facility] September 30, 2023 10:17amNote Date/TimeMarch 2023 10:17[place] [address] General Surgery Consult Note Signed Patient: Evan Gill MR#: [id number] : 1955 Acct:[id number] Age/Sex: 68 / F Adm Date: 4 Loc: Room: [address] [place] [address] Type: ADM IN Attending Dr: Tim Garduno MD Copies to: MD Charles Govea,DO Tim Garduno MD~ History of Present Illness Date of consult: 09/30/2023 Reason for consult: other (Bowel obstruction) Requesting/Attending Provider: Tim Garduno MD History of present illness: Patient is a 68-year-old female who last month underwent robotic laparoscopic assisted low anteriorresection for rectal cancer at [facility]. She had previously been treated [...] the ileostomy. No bed was available at [facility]. Patient was admitted here. This morning, patient states that she had a little bit of crampy pain and then had suddenly a largeoutput from her ileostomy. There was about 500 cc. She feels better now. Review of Systems Constitutional Constitutional: Denies fever(s) Cardiovascular Cardiovascular: Denies chest pain Respiratory Respiratory: Denies dyspnea Gastrointestinal Gastrointestinal: Reports abdominal pain and Denies vomiting Neurologic Neurologic: Denies syncope [facility] Medical History (Updated 09/30/23 @ 10:16 [...] health maintenance 11/02/18 [History Confirmed 09/30/23] omega 6-ood-prg-fish oil 1,000 mg (120 mg-180 mg) capsule [...] mg/mL subcutaneous syringe (Prolia) 60 mg subcut [id number] 06/26/23 [History Confirmed 09/30/23] progesterone micronized 100 [...] Neut % (Auto) 71.5, Lymph % (Auto) 12.0,[place] % (Auto) 8.0, Eos % (Auto) 7.3, Baso % (Auto) 1.2, Nucleat RBC Rel Count 0.1, Neut # (Auto) 6.8, Lymph # (Auto) 1.1, [place] # (Auto) 0.8, Eos # (Auto) 0.7 H, Baso # (Auto) 0.1, Monocyte Dist Width15.40, PHA Creatinine Clear 56.50, Sodium 139, Potassium 3.9, Chloride 105, Carbon Dioxide 25.6, Anion Gap 12.3, BUN 21, Creatinine 0.72, Est GFR (CKD- EPI) > 60.0, Glucose 111 H, Calcium 9.8, Total Bilirubin 0.5, Direct Bilirubin 0.10, Indirect Bilirubin 0.4, AST 19, ALT 15, Alkaline Uwmeihcebtj08,Total Protein 6.7, Albumin 4.1, Globulin 2.6, Albumin/Globulin Ratio 1.6, Lipase5.0 L A&P - General Surgery (1) SBO (small bowel obstruction): (2) Ileostomy status: (3) Rectal cancer: Plan Ileostomy has started functioning. Will start clear liquids. Advance diet as tolerated. If patient worsens again, transfer to [facility] tomorrow. Documented By: Cristhian Vargas MD 09/30/23 1010 Signed By: <Electronically signed by MD Cristhian Vargas> 09/30/23 1017 [facility] Work Phone: 1(136) 880-336303-23-2024 History and physical note Author Miguel Ángel Delgadillo [facility] September 30, 2023 6:58amNote Date/TimeMarch 2023 5:29[place] [address] Hospitalist H&P Signed Patient: Evan Gill MR#: [id number] : 1955 Acct:[id number] Age/Sex: 68 / F Adm Date: 4 Loc: Room: [address] [place] [address] Type: ADM IN Attending Dr: Miguel Ángel [...] Anastomosis and Diverting Loop Ileostomy, Laparoscopic Mobilization ofSplenic Flexure, and Flexible Sigmoidoscopy for rectal cancer. Her recovery was complicated by SBO. Today, around 4 PM, the patient noticed no output from her ileostomy. Subsequently, she began experiencing abdominal spasms and pain in the lower halfof her abdomen. She reported feeling nauseous butdid not vomit, and she had no fever or chills. These symptoms are similar to those she experienced during her bowel obstruction the previous month. ROS: Ten Systems reviewed with the patient, all negative except what stated above Assessment And Plan Small bowel obstruction CAT scan of the abdomen consistent with small bowel obstruction (note: ct reports are out of hospital reading. final [facility] radiology report pending) [facility] was contacted but they are not taking any patient at least after 6 am as per ED physician. Dr. Martin also contacted She is afebrile, hemodynamically stable, no leukocytosis , abdominal pain is better , no vomiting ,lipase wnl NPO IVF Supportive TX Consult to general surgery to follow while she is here will try to contact [facility] again in the morning to see if they are open to transfer Chronic diseases:? all home medications on hold DVT Px:?Addressed Code Status: FULL, discussed with patient Plan of care Discussed with:?the medical team, the patient [facility] Medical History (Updated 09/30/23 @ 03:06 [...] health maintenance 11/02/18 [History Confirmed 06/26/23] omega 6-noy-lao-fish oil 1,000 mg (120 mg-180 mg) capsule [...] mg/mL subcutaneous syringe (Prolia) 60 mg subcut [id number] 06/26/23 [History Confirmed 06/26/23] hydrocodone 5 mg-acetaminophen 325 mg tablet 1 tab PO Q6H PRN pain 5 days #20 tabs 06/26/23 [Rx] progesterone micronized 100 mg capsule 100 mg PO DAILY 06/26/23 [History Confirmed 06/26/23] Exam Physical Exam Vital Signs: Temp Pulse Resp BP Pulse Ox O2 Del Method 36.9 C 60 18 128/75 97 Room Air 09/30/23 04:29 03/23/24 04:29 09/30/23 04:29 09/30/23 04:29 09/30/23 04:29 09/30/23 04:57 Narrative: GEN: Pleasant, Cooperative, Not in acute distress. NECK: Supple, ? JVD LUNGS: CTA. normal respiratory effort. CV: S1S2 nl, ? M/R/G ABD: Soft, ND, mild tenderness in the lower half ? rebound/guarding, ostomy noted, ?CVA tenderness,? HSM EXT: No edema in LE bilaterally, [...] % (Auto) 12.0 % (.) 09/30/23 01:20 [place] % (Auto) 8.0 % (.) 09/30/23 01:20 Eos % (Auto) 7.3 % (.) 09/30/23 01:20 Baso % (Auto) 1.2 % (.) 09/30/23 01:20 Nucleat RBC Rel Count 0.1 /100 WBC (0-0.5) 09/30/23 01:20 Neut # (Auto) 6.8 x10E3/uL (1.8-7.7) 09/30/23 01:20 Lymph # (Auto) 1.1 x10E3/uL (1.00-4.8) 09/30/23 01:20 [place] # (Auto) 0.8 x10E3/uL (0.0-0.8) 09/30/23 01:20 [...] setting as: INPATIENT because of an expectation ofan over 2 midnight stay. Estimated length of stay (# of days): 2 Documented By: Miguel Ángel Delgadillo MD 09/30/23 0523 Signed By: <Electronically signed by Miguel Ángel Delgadillo MD> 09/30/23 0658 [facility] Work Phone: 1(951) 754-222903-15-2024 History of Present illness Narrative* Brandie Salmeron APRN.[employer] - 09/22/2023 2:40 PM EDT COLORECTAL SURGERY September 22, 2023 Evan Gill 68 year old This consult was requested by Dr. Singer and my final recommendations will be communicated to the requesting health care provider by way of the shared medical record for internal providers or letter [employer] for external providers. Chief Complaint: [...] lower quadrant. Red, healthy mucosa. Round, budded. [place] 2 piece pouch intact, patient placed, effluent [...] and/or complications of treatment plan: logan Salmeron APRN.[employer] COLORER Colorectal Surgery documented in this encounterWadsworth-[facility]02-29-2024 Miscellaneous Notes* Telephone Encounter - Venecia Eid [...] advise Colleen Solorio RN documented in this encounterWadsworth-Rittman Hospital02-28-2024 Miscellaneous Notes* Telephone Encounter - Colleen Solorio RN - 09/06/2023 2:58 PM EST DISCHARGE CALL BACK Today's date: September 06, 2023 Notified of Pt discharge by: hospital ADT folder Patient discharged on 09/04/23 from [place] to Home Primary Cancer Diagnosis: rectal cancer Admitting Diagnosis: Small bowel obstruction Discharge Summary/SBAR reviewed: Yes Handoff Discussed with Transitional Employment Specialist/Program Manager: No, unavailable Psychosocial Risk Factors: None If [...] Corona Patient reminded of follow-up appointment with [facility] provider, Dr Corona on TBD: [...] YES Colleen Solorio RN documented in this encounterWadsworth-Rittman Hospital02-27-2024 Miscellaneous Notes* Telephone Encounter - Cierra Lindquist RN - 09/05/2023 1:07 PM EST Tumor board documented in this encounterWadsworth-Rittman Hospital02-26-2024 [facility]03[facility]20[id number] [facility]02-23-2024 Miscellaneous Notes* Telephone Encounter - Colleen Solorio RN - 09/01/2023 12:58 PM EST DISCHARGE CALL BACK Today's date: September 01, 2023 Notified of Pt discharge by: hospital adt folder Patient discharged on 08/30/23 from [place] to Home Primary Cancer Diagnosis: rectal cancer Admitting Diagnosis: surgery-ileostomy Discharge Summary/SBAR reviewed: Yes Handoff Discussed with Transitional Employment Specialist/Program Manager: No, unavailable Psychosocial Risk Factors: None unable to assess, didn't speak with patient If patient discharged to SNF/Rehab Facility, phone call completed to reinforce discharge instructions and follow up: N/A Call Disposition: Readmitted or In Emergency Department Colleen Solorio RN documented in this encounterWadsworth-Rittman Hospital02-23-2024 [facility] 08-31-2023 [facility]02-22-2024 History of Past illness Narrative* ProblemNoted DateDiagnosed DateResolved DateSmall bowel qylmryyjrej82/22/2024 09/04/2023Encounter for ostomy care odkdohmjb30/ocumented as of this encounter (statuses as of 09/06/2023) [facility]02-[facility] History of Past illness Narrative* ProblemNoted Date Diagnosed DateResolved DateSmall bowel zujxexnjzhd33 Encounter for ostomy care tsexrskqo024documented as of this encounter (statuses as of 09/06/2023) [facility]02-[facility] History of Past illness Narrative* ProblemNoted Date Diagnosed DateResolved DateSmall bowel ygszylrodhv68 Encounter for ostomy care /4documented as of this encounter (statuses as of 09/07/2023) [facility] History of Past illness Narrative* ProblemNoted Date Diagnosed DateResolved DateSmall bowel tvxzqhndbqe18/22/202402/ Encounter for ostomy care qbvepdabk244documented as of this encounter (statuses as of 09/07/2023) [facility]02-[facility] History of Past illness Narrative* ProblemNoted Date Diagnosed DateResolved DateSmall bowel iwludjtgghd20 Encounter for ostomy care cbeghbpaw28/4documented as of this encounter (statuses as of 09/14/2023) [facility] History of Past illness Narrative* ProblemNoted Date Diagnosed DateResolved DateSmall bowel sddrhmoamnz23 Encounter for ostomy care fmnouutab364documented as of this encounter (statuses as of 09/22/2023) [facility] History of Past illness Narrative* ProblemNoted Date Diagnosed DateResolved DateSmall bowel budfyicvzon38 Encounter for ostomy care exptyhvys394documented as of this encounter (statuses as of 10/10/2023) [facility] History of Past illness Narrative* ProblemNoted Date Diagnosed DateResolved DateSmall bowel nyvacmatmsm62 Encounter for ostomy care vsixmjnmh394documented as of this encounter (statuses as of 10/11/2023) [facility] History of Past illness Narrative* ProblemNoted Date Diagnosed DateResolved DateSmall bowel nnppuzlpzkc55 Encounter for ostomy care nmxffddmo024documented as of this encounter (statuses as of 10/19/2023) [facility]02-22-2024 History of Past illness Narrative* ProblemNoted Date Diagnosed DateResolved DateSmall bowel aejbazcovxc11 Encounter for ostomy care rvomadhtp95/4documented as of this encounter (statuses as of 10/26/2023) [facility]02-22-2024 History of Past illness Narrative* ProblemNoted Date Diagnosed DateResolved DateSmall bowel oetltamvbgk00/22/202402/ Encounter for ostomy care gdyjtnikq25/4documented as of this encounter (statuses as of 10/17/2023) [facility]02-21-2024 NoteHoly[facility] CenterUzilwknw00-71-1599 [facility] 08-29-2023 NoteHolyoke Medical CenterGqjlljqi84-81-1077 NoteHolyoke Medical CenterQeudxpgz80-98-2285 Note [facility] CenterMfachgjm99-33-1521 NoteHNO ID: [id number] Author: DONN SAMUELS, KAYA Service: ? Author Type: Registered Nurse Type: Nursing Progress Note Filed: 08/27/2023 02:07 Note Text: Pt states tolerating clears. Oxycodone controlling abd pain and given at 2024. [facility] CenterIspqyqao20-95-9411 History of Past illness Narrative* ProblemNoted Date Diagnosed DateResolved DateEncounter for ostomy care yjoiealli79/17/2024 4documented as of this encounter (statuses as of 09/01/2023) [facility]02-17-2024 NoteHolyoke Medical CenterBvhdqngt96-96-3893 [facility] 08-25-2023 NoteHolyoke Medical CenterEppsbygk58-09-5824 NoteHolyoke Medical CenterNqxzzgzq97-20-4949 Note [facility] CenterInahozpa04-36-1034 History and physical note* Jordan Ramos APRN.CITRUS FRUIT COLORER - 08/11/2023 12:40 PM EST Images from [...] Take 1 Each by mouth once daily. [employer] supplies guzman mitochondrial micronutrients and a smart [...] fevers. Neuro: No history of TIA's, stroke, ECHOCARDIOGRAPHY TECH tumor, impaired sensorium, hemiplegia, paraplegia or quadraplegia. [...] or incontinence,, stones or chronic kidney disease JOINERY SETTER OUT: Negative for abnormal vaginal bleeding, abnormal vaginal [...] a low risk scan. CHEST XR 06/26/23 [id number]-H-WNDH PLACEMENT, DESCRIBED. NO ACUTE FINDINGS Assessment/Plan Atrial [...] myocardial fusion study which done at the [facility] and was able to retrieve [...] This Encounter Confirm Blood Type Order Comments: [facility] Standing Status: Future Standing Expiration Date: 11/10/2023 Order Specific Question: Did Blood Bank direct you to place this order: Answer: No - Presurgical Workflow +labs per Lucien Marie Planned Anesthetic: Per anesthesia choice Instructions Given to Patient: Instructions located in the after visit summary. Patient given verbal and written preop instructions and voices comprehension and compliance. SIGNATURE: Jordan Ramos APRN.[employer] FRUIT COLORER PATIENT NAME: Evan Gill DATE: August 11, 2023 TIME: 12:16 PM documented in this encounterWadsworth-Rittman [facility]02-02-2024 Instructions* Patient Instructions* Jordan Ramos APRN.CNP - 08/11/2023 12:14 PM EST PATIENT PREOPERATIVE INSTRUCTIONS Laisha Singer MD has scheduled you for your procedure at this [facility] center: [facility]: [phone] --[id number] [address]. Please check in on thet floor at registration desk 6. Please read [...] Procedures: - YOU MUST HAVE A RESPONSIBLE FUEL PILOT ENGINEER TAKE YOU HOME. A INFANT BABYSITTER OR APPLIANCE PAINTER AND REFINISHER CANNOT BE MADE A RESPONSIBLE FUEL PILOT ENGINEER. - We recommend that a responsible person [...] Advance Directive, please fax a copy to [phone] or email to for it to be [...] your chart that day. documented in this encounterWadsworth-R[facility]man [facility]01-16-2024 History of Present illness Narrative* Marcos [...] myocardial fusion study which done at the [facility] and was able to retrieve [...] mouth once daily., Disp: , Rfl: omega 5-vbd-cdk-fish oil (Fish OiL) 1,000 mg (120 mg-180 [...] 4. BMI 24.0-24.9, adult [facility] encounterJ[facility] Work Phone: 1(738) 515-371401-16-2024 Instructions* Patient Instructions* Madison Sylvester LPN - [...] 6 months Same medications documented in this encounterJ.W. [facility] Work Phone: 1(337) 258-712612-13-2023 Miscellaneous Notes* Telephone Encounter - Colleen Solorio [...] education. Colleen Solorio RN documented in this encounterWadsworth-[facility]12-12-2023 History of Present illness Narrative* Colleen Solorio [...] Spent: 40 minutes REFERRAL (RECOMMENDATION): N/A Colleen Sloorio RN * Brandie Clayton [facility] - 06/20/2023 10:00 AM EST Images from the original note were not included. [facility] Department of Pharmacy Oncology Pharmacy Medication Education [...] Take 1 Each by mouth once daily. [employer] supplies guzman mitochondrial micronutrients and a smart [...] time (15 minute increments) with the patient Brunildamarkaltagracia Clayton RPh Pager: documented in this encounterWadsworth-Rittman Hospital12-12-2023 Miscellaneous Notes* Addendum Note - Brandie Clayton RPh - 06/20/2023 10:00 AM ESTAddended by: BRANDIE CLAYTON on: 06/20/2023 11:35 AM Modules accepted: Orders documented in this encounterWadsworth-Rittman Hospital12-06-2023 History of Present illness Narrative* Tapan Corona MD - 06/14/2023 3:17 PM EST Images from the original note were not included. PATIENT NAME: Evan Romo [facility] NO.: [id number] ATTENDING PHYSICIAN: Tapan Corona MD DATE OF [...] Range Status 06/14/2023 8.8 % Final Abs [place] Date Value Ref Range Status 06/14/2023 0.97 [...] do not hesitate to contact me at [phone]. Tapan Corona MD Hematology/Medical Oncology [facility] Giordano spent a total of 30 minutes on the date of the service which included preparing to see the patient, jbat-hf-lydx patient care, completing clinical documentation, obtaining and/or reviewing separately obtained history, performing a medically appropriate examination, counseling and educating the pat ient/family/caregiver, and ordering medications, tests, or procedures. CC: documented in this encounterWadsworth-[facility]12-04-2023 History of Present illness Narrative* Joann Torres RT(Mark) - 06/12/2023 11:10 AM EST Radiology Service [...] Intact, Site disposition Discontinued SIGNED BY: RT Josh(Mark) June 12, 2023 11:31 AM * Joann [...] 2023 TIME: 11:44 AM documented in this encounterWadsworth-[facility]11-30-2023 History and physical note * Laisha Singer [...] 2023 TIME: 12:39 PM documented in this encounterWadsworth-Rittman Hospital11-20-2023 History of Present illness Narrative* Del [...] Take 1 Each by mouth once daily. [employer] supplies guzman mitochondrial micronutrients and a smart [...] by: Del Hudson MD cc: Charles Bazzi, [address] [place] [phone] No referring provider defined for this encounter. documented in this encounterWadsworth-Rittman Hospital11-02-2023 Evaluation note* Encounter Date Diagnosis Assessment Notes Treatment Notes Treatment Clinical Notes May, Hypertension (ICD-10 - I10) May,Stress incontinence in female (ICD-10 - N39.3) May,ERD (gastroesophageal reflux disease) (ICD-10 - K21.9) [facility] Other [id number] History of Present illness Narrative* Del Hudson MD - 05/10/2023 12:00 AM EDT [facility] Radiation Oncology Department RADIATION ONCOLOGY - [...] follow-up. Staff Physician Monty Hudson M.D. / NRS :11 PM Electronically Signed cc: Dr. Charles Corona documented in this encounterWadsworth-R[facility]man [facility]10-30-2023 History of Present illness Narrative* Del [...] weeks. Del Hudson MD documented in this encounterWadsworth-Rittman [facility]10-30-2023 Nurse Note* Brisa Zapata LPN - 05/08/2023 10:59 AM EDT Status: Post-menopausal. 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 Toney through the [facility]. She is currently going through radiation treatment five days a week. Oral chemo therapy was stopped due to negative side effects. Patient appears to be doing well, she does speak in a positive tone and doesnt show signsof distress. Apr,hest pain (ICD-10 - R07.9) Patient did have a stress test done through the [facility], this was normal. Reports after the oral chemotherapy was stopped the chest pain did resolve. We will continue to monitor. Apr,Hyperlipidemia (ICD-10 - E78.5) Blood work ordered for medicare wellness. [facility] Other 10-23-2023 History of Present illness Narrative* [...] Pyridium. Del Hudson MD documented in this encounterWadsworth-Rittman Hospital10-20-2023 History of Present illness Narrative* Tapan Corona MD - 04/28/2023 2:30 PM EDT Images from the original note were not included. PATIENT NAME: Evan Gill CLINIC NO.: [id number] ATTENDING PHYSICIAN: Tapan Corona MD DATE OF [...] Range Status 04/28/2023 9.9 % Final Abs [place] Date Value Ref Range Status 04/28/2023 0.48 [...] monitoring as part of STACY Echo at [facility] reviewed and was normal. See back in 6 weeks after MRI Thank you for the kind referral. If there are any questions and or concerns please do not hesitate to contact me at [phone]. Tapan Corona MD Hematology/Medical Oncology [facility] Giordano spent a total of 30 minutes on the date of the service which included preparing to see the patient, ccti-xo-ydpg patient care, completing clinical documentation, obtaining and/or reviewing separately obtained history, performing a medically appropriate examination, counseling and educating the pat ient/family/caregiver, and ordering medications, tests, or procedures. CC: documented in this encounterWadsworth-[facility]10-17-2023 History of Present illness Narrative* Osmany [...] 2023 Time: 1:46 PM documented in this encounterWadsworth-Rittman [facility]10-16-2023 History of Present illness Narrative* Del [...] diarrhea. Del Hudson MD documented in this encounterWadsworth-Rittman Hospital10-06-2023 History of Present illness Narrative* Tapan Corona MD - 04/14/2023 10:19 AM EDT Images from the original note were not included. PATIENT NAME: Evan Gill CLINIC NO.: [id number] ATTENDING PHYSICIAN: Tapan Corona MD DATE OF [...] Range Status 04/14/2023 9.1 % Final Abs [place] Date Value Ref Range Status 04/14/2023 0.42 [...] radiation. Seeing cardiology next week Echo at [facility] reviewed and was normal. 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 If there are any questions and or concerns please do not hesitate to contact me at [phone]. Tapan Corona MD Hematology/Medical Oncology [facility] I spent a total of 30 minutes on the date of the service which included preparing to see the patient, hktv-wq-yxyo patient care, completing clinical documentation, obtaining and/or reviewing separately obtained history, performing a medically appropriate examination, counseling and educating the pat ient/family/caregiver, and ordering medications, tests, or procedures. CC: documented in this encounterWadsworth-[facility]10-02-2023 History of Present illness Narrative* Del [...] treatment. Del Hudson MD documented in this encounterWadsworth-R[facility]man Hospital10-02-2023 Nurse Note* Prachi Gill RN - 04/10/2023 11:12 AM EDT Status: Post-menopausal. Prachi Gill RN documented in this encounterWadsworth-R[facility]09-29-2023 Miscellaneous Notes* Telephone Encounter - Colleen Solorio RN - 04/07/2023 4:11 PM EDT There has been a change in treatment plan and pt will no longer need a port. Damaris notified and she will cancel this. Colleen Solorio RN * Telephone Encounter - Damaris Koehler - 04/06/2023 3:36 PM EDT Patient's port has been scheduled in [place] on 04/11. 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 Patient takes a baby aspirin daily. This should not be an issue but nurses have been notified and may adjust if need. Damaris Koehler * Telephone Encounter - Kristin Martinez [...] PM EDT Per Venecia, PSS she reports [facility] called to inform they are discharging her today and will not be doing the port or EGD. I spoke w/ [facility] port scheduling with Marleni and she stated they may have a cancellation in [place] on 04/11 but this is still up in the air and she will let me know. If this date will not be available, Iwill call local. Faxed EGD order to Dr. Greene's office. Damaris Koehler * Telephone Encounter - Colleen Solorio RN - 04/05/2023 4:59 PM EDT KK: please sign orders for EGD. If [facility] is not able to do it we will get it scheduled at [place]. Thanks Colleen Solorio RN * Telephone Encounter [...] orders for port and GI. Thanks Colleen Solorio, RN documented in this encounterWadsworth-Rittman Hospital09-28-2023 Miscellaneous Notes* Telephone Encounter - Mylene Byers RN - 04/06/2023 3:37 PM EDT You are scheduled for a Port Placement, On 04/11/2023. You are to arrive at 2:00 PM and Report to [facility]: Enter through [place] entrance.Proceed to [...] if they are not done at a [facility] facility. . 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 Private car. You will need a responsible adult to accompany you to and from the procedure. If you have any questions, please call [phone] [address] [address] [facility] [place] [address] documented in this encounterWadsworth-Rittman [facility]09-28-2023 Progress note Author Agustin Negron [facility] April 06, 2023 12:42pmNote Date/TimeSeptember 2022 12:42pmT[place] [address] Hospitalist Progress Note Signed Patient: Evan Gill MR#: [id number] : 1955 Acct:[id number] Age/Sex: 67 / F Adm Date: 3 Loc: Room: [address] [place] [address] Type: ADM INOo Attending Dr: Agustin Negron [...] Oil 1,000 mg 04/06/23 09:00 04/06/23 08:44 [place]-3/Fish Oil 1,000 Mg Capsule PO 04/05/24 08:59 [...] 15 Mg Tablet PO 04/06/24 08:59 DAILY [facility] Nitroglycerin 0.4 mg 04/05/23 13:09 04/05/23 13:32 Nitroglycerin 0.4 Mg Tab.Subl SUBLINGUAL 04/04/24 13:08 0.4 mg Q5M PRN Administration Chest Pain Non-Formulary Medication 1 packet 04/06/23 09:00 Testosterone TRANSDERML 04/05/24 08:59 DAILY [facility] Ondansetron HCl 8 mg 04/05/23 16:46 Ondansetron [...] 3. Colon cancer The patient follows with [facility] group, we will consult Hopefully she can be discharged today Documented By: Agustin Negron MD 04/06/23 1240 Signed By: <Electronically signed by Agustin Negron MD> 04/06/23 1242 [facility] Work Phone: 1(267) 303-849909-28-2023 Consult note Author Marcos Rios [facility] April 06, 2023 10:58amNote Date/TimeSeptember 2022 10:55amTalent[place] [address] Cardiology Consult Note Signed Patient: Evan Gill MR#: [id number] : 1955 Acct:[id number] Age/Sex: 67 / F Adm Date: 3 Loc: Room: [address] [place] [address] Type: ADM INOo Attending Dr: Agustin Negron [...] felt better when she leaned forward. She cameto the emergency room where she was given [...] and no additional complaints, except as documented [facility] Medical History (Updated 04/06/23 @ 10:56 [...] chewable tablet (Citracal- D3 Soft Chew) 2 tabPO DAILY [facility] 11/02/18 [History Confirmed 04/05/23] omega 3-rxh-azi-fish oil 1,000 mg (120 mg-180 mg) capsule [...] x10E3/uL Lymph # (Auto) 2.6 (1.00-4.8) x10E3/uL [place] # (Auto) 0.5 (0.0-0.8) x10E3/uL Eos # [...] signed by MD Marcos Rios> 04/06/23 1058 [facility] Work Phone: 1(999) 531-526009-28-2023 Miscellaneous Notes* Telephone Encounter - Linda Guillen RN - 04/06/2023 12:43 PM EDT Images from the original note were not included. Tapan Corona MD You 6 minutes ago (12:36 PM) Thanks. * Telephone Encounter - Linda Guillen RN - 04/06/2023 11:58 AM EDT Consult received. Dr Corona recommends pt be discharged and f/u next day in clinic. Spoke w/ KAYA Lingcharger tester. Notified him of the above. States there [...] 's request for EGD phoned to KAYA Lingcharger tester on 3T. He will inform the hospitalist. [...] for EGD. Pt has been admitted to [facility] for further cardiac workup. Will keep getting [...] issue being urgent. Pt will go to [facility]. Report called to ER and recent progress notes faxed as well. Colleen Solorio RN documented in this encounterWadsworth-[facility]09-27-2023 History and physical note Author Jordan Hare [facility] April 05, 2023 8:54pmNote Date/TimeSept2022 8:54pmTalent, [place] [address] Hospitalist H&P Signed Patient: Evan Gill MR#: [id number] : 1955 Acct:[id number] Age/Sex: 67 / F Adm Date: 3 Loc: Room: [address] [place] [address] Type: ADM INOo Attending Dr: Jordan Hare DO Copies to: DO Jordan Carrillo DO~ HPI DATE OF EXAMINATION: 04/05/23 CHIEF COMPLAINT: Chest pain HISTORY OF PRESENT ILLNESS: This patient is a 67-year-old female presented to the emergency department this evening with a chief complaint of chest pain. She states this has been going onintermittently since Monday however thisworsened in severity last night late into the [...] cancer that she sees Dr. Houser at [facility] oncology. Recently has switched her PPI and Pepcid dosing due toconcern of possible spasms of the esophagus. She states this pain she expe rienced today is much more severe. Her vitals were all stable on arrival tothe ER with only borderline hypertension 147/74. CT [...] second troponin returned decision was made to initiatetherapeutic anticoagulation with Lovenox. Physical Examination: GENERAL APPEARANCE: [...] daily initiated. In case this is a GIsymptomatology will add 40 IV twicedaily of Protonix. Echocardiogram and cardiology consultation. 2. Hypertension Continue home amlodipine benazepril combination or formulary equivalent. Review of Systems Review of Systems All other systems reviewed & are negative unless noted below or in HPI [facility] Medical History (Updated 04/05/23 @ 18:11 by Michael Lares, KAYA) Arthritis Colorectal cancer Depression Hypertension Incontinence Menopause [...] chewable tablet (Citracal- D3 Soft Chew) 2 tabPO DAILY [facility] health 11/02/18 [History Confirmed 04/05/23] omega 4-bfk-srz-fish oil 1,000 mg (120 mg-180 mg) capsule [...] % (Auto) 38.8 % (.) 04/05/23 13:24 [place] % (Auto) 7.5 % (.) 04/05/23 13:24 Eos % (Auto) 1.1 % (.) 04/05/23 13:24 Baso % (Auto) 0.7 % (.) 04/05/23 13:24 Nucleat RBC Rel Count 0.1 /100 WBC (0-0.5) 04/05/23 13:24 Neut # (Auto) 3.4 x10E3/uL (1.8-7.7) 04/05/23 13:24 Lymph # (Auto) 2.6 x10E3/uL (1.00-4.8) 04/05/23 13:24 [place] # (Auto) 0.5 x10E3/uL (0.0-0.8) 04/05/23 13:24 [...] <Electronically signed by Jordan Hare DO> 04/05/232053 [facility] Work Phone: 1(330) 232-130509-25-2023 Miscellaneous Notes* Telephone Encounter - Colleen Solorio [...] Nausea: No Vomiting: Yes - pt states Bobby night she had vomiting that stopped at [...] comply. Colleen Solorio RN documented in this encounterWadsworth-[facility]09-25-2023 Nurse Note* Prachi Gill RN - 04/03/2023 12:02 PM EDT Status: Post-menopausal. Prachi Gill RN documented in this encounterWadsworth-R[facility]09-25-2023 History of Present illness Narrative* Del [...] outlined. 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 Pt haschosen to refuse professor of astronomy eval at this time. Signed by: Prachi Gill RN documented in this encounterWadsworth-Rittman Hospital09-13-2023 History of Present illness Narrative* Tapan Corona MD - 03/22/2023 2:42 PM EDT Images from the original note were not included. PATIENT NAME: vEan Gill CLINIC NO.: [id number] ATTENDING PHYSICIAN: Tapan Corona MD DATE OF [...] do not hesitate to contact me at [phone]. Tapan Corona MD Hematology/Medical Oncology [facility] Giordano spent a total of 30 minutes on the date of the service which included preparing to see the patient, omtf-zm-vbfd patient care, completing clinical documentation, obtaining and/or reviewing separately obtained history, performing a medically appropriate examination, counseling and educating the pat ient/family/caregiver, and ordering medications, tests, or procedures. CC: documented in this encounterWadsworth-R[facility]09-13-2023 History of Present illness Narrative* Colleen [...] Yes Pt has picked up medication from [facility] pharmacy DRUG-SPECIFIC EDUCATION: 1.) Verified patient [...] teaching topics as needed. Colleen Solorio, RN Employment Specialist/Program Manager Pre Chemo Patient identified by name and date of . YES Confirmed date and time for chemotherapy ? YES Other appointments (labs, imaging) discussed? 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 Colleen Solorio, RN documented in this encounterWadsworth-Rittman Hospital09-13-2023 History of Present illness Narrative* Del Hudson MD - 03/22/2023 12:00 AM EDT EVAN GILL [id number] 03/22/2023 [facility] Department of Radiation Oncology Treatment Planning [...] Hudson M.D. 1:12 AM documented in this encounterWadsworth-Rittman Hospital09-12-2023 Miscellaneous Notes* Telephone Encounter - Colleen Solorio [...] Thanks Colleen Solorio RN documented in this encounterWadsworth-Rittman Hospital09-07-2023 History and physical note * Laisha Singer [...] 2023 TIME: 12:45 PM documented in this encounterWadsworth-Rittman Hospital09-06-2023 Miscellaneous Notes* [facility] - [facility] Enciso MRI Tech [...] 15, 2023 1:03 PM documented in this encounterWadsworth-Rittman Hospital09-06-2023 Progress note* [facility] - Joel Enciso MRI Tech - 03/15/2023 [...] NUNU Vivar March 15, 2023 1:03 PM [facility]08-30-2023 History of Present illness Narrative* Del [...] GI: See HPI : urination is normal JOINERY SETTER OUT: denies abnormal vaginal bleeding, no vaginal discharge, no breast mass/tenderness SKIN: no rash NEURO: no numbness or paresthesias and no weakness of the extremities As noted in HPI JOINERY SETTER OUT: Pain: 0 on a 0-10 pain scale. [...] noted Hematologic: No signs of active bleeding. JOINERY SETTER OUT: Deferred Rectal: Deferred RADIOLOGY/LABORATORY DATA: see HPI [...] defined for this encounter. documented in this encounterWadsworth-Rittman Hospital08-29-2023 Miscellaneous Notes* Telephone Encounter - Colleen Holland - 03/07/2023 9:42 AM EDT Patient is scheduled for 03/15 will give when patient is here tommorow. * Telephone Encounter - Brisa Zapata LPN - 03/07/2023 8:03 AM EDT MRI pelvis order pending your approval. Brisa Zapata LPN documented in this encounterWadsworth-Rittman Hospital08-01-2023 Evaluation note* Encounter Date Diagnosis Assessment Notes Treatment Notes Treatment Clinical Notes Feb, Change in bowel habits (ICD-10 - R19.4) Feb,Flatulence (ICD-10 - R14.3) Feb,loody stools (ICD-10 - K92.1) [facility] Other 04-24-2023 Evaluation note* Encounter Date Diagnosis Assessment Notes Treatment Notes Treatment Clinical Notes Oct, Anxiety and depression (ICD-10 - F41.8) Patient appears to be going great on the above medication. Patient is currently trying to get this medication through [employer]. Oct,Hypertension (ICD-10 - I10) The patients blood pressure was WNL upon check in. Therefore, patient is to continue with the abovemedication. Oct,rimary osteoarthritis of right knee (ICD-10 - M17.11) Patient is scheduled to have right knee replacement with Dr. Lemon 12/07/22, patient will be having PST done in [place] in two weeks. Patient did get cardiac clearance from Dr. Calhoun. In mymedical opinion, the patient is clear to proceed with surgery. [facility] Other 03-27-2023 Evaluation note* Encounter Date Diagnosis Assessment Notes Treatment Notes Treatment Clinical Notes Sep, Anxiety and depression (ICD-10 - F41.8) Patient appears to be doing well on the above medication. Still waiting for the prior auth to be approved by insurance. Patient continues to be under alot of stress as her is still in hospice. Samples provided of the 10mg. Sep,rimary osteoarthritis of right knee (ICD-10 - M17.11) Patient is planning to have right knee replaced with Dr. Valle end of November. Patient will need cardiac clearance for this. We will send a referral to [facility] for the clearance closer to her surgery date. Sep,trial fibrillation (ICD-10 - I48.91) Referral intiated to [facility]. Patient had stress test in 2016 with at maximum exercise had a burst of atrial fibrillation. Placed on aspirin and followed by cardiology. We will have cardiology clearanceprior to her upcoming knee replacement surgery. [facility] Other 02-27-2023 Evaluation note* Encounter Date Diagnosis Assessment Notes Treatment Notes Treatment Clinical Notes Aug, Anxiety and depression (ICD-10 - F41.8) [facility] Other 02-09-2023 Evaluation note* Encounter Date Diagnosis Assessment Notes Treatment Notes Treatment Clinical Notes Aug, Bilateral primary osteoarthritis of knee (ICD-10 - M17.0) Aug,OtherWe discussed today that I think that she exacerbated her knee arthritis when she had that fall. Would recommend doing another Zilretta injection today to try and get her back to her baseline and calmdown the inflammation from that fall. Patient agreed. [...] sterile technique. Patient tolerated the injection well. [facility] Other 02-08-2023 Evaluation note* Encounter Date Diagnosis Assessment Notes Treatment Notes Treatment Clinical Notes Aug, Anxiety and depression (ICD-10 - F41.8) [facility] Other 11-09-2022 Evaluation note* Encounter Date Diagnosis Assessment Notes Treatment Notes Treatment Clinical Notes May, Bilateral primary osteoarthritis of knee (ICD-10 - M17.0) May,therAfter consent was obtained, the right knee was injected with Zilretta using sterile technique. Patient tolerated the injection well. Follow-up in 3 months. [facility] Other 11-02-2022 Evaluation note* Encounter Date Diagnosis Assessment Notes Treatment Notes Treatment Clinical Notes May, Bilateral primary osteoarthritis of knee (ICD-10 - M17.0) May,. We had a long discussion with the patient today concerning their right and left knee osteoarthritis. Considering she is done so well with her right knee Zilretta injection I recommended that we doanother 1 but unfortunately she is not 3 [...] week for her right knee Zilretta injection. [facility] Other 10-12-2022 Evaluation note* Encounter Date Diagnosis Assessment Notes Treatment Notes Treatment Clinical Notes Apr, Stress incontinence in female (I CD-10 - N39.3) Apr,GERD (gastroesophageal reflux disease) (ICD-10 - K21.9) [facility] Other 08-05-2022 Evaluation note* Encounter Date Diagnosis Assessment Notes Treatment Notes Treatment Clinical Notes Feb, Pain in right knee (ICD-10 - M25 .561) Feb,2Pain in left knee (ICD-10 - M25.562) Feb,ilateral primary osteoarthritis of knee (ICD-10 - M17.0) Feb,ther1. We had a long discussion with the patient today concerning their right and left knee osteoarthritis. The radiographs do show osteoarthritis of the knees. The right knee osteoarthritis is more diffuse and worse than the left knee just slightly. At this time the patient would like to avoid surgical intervention. We did discuss the risk and benefits of surgical versus nonoperative management. Thepatient would like to proceed with nonoperative management. [...] injection well. 6. Follow up 3 months [facility] Other Chief complaint Narrative - ReportedEVAN IGLL is being seen for a consultation for Charles Bazzi- POC R Knee replacement 12/07/22.- [facility] [address] DO Work Phone: [place] [address] Orthopedic Consult Note Signed Patient: Evan Gill MR#: [id number] : 1955 Acct:[id number] Age/Sex: 68 / F Adm Date: 4 Loc: ER Room: Type: [facility] ER Attending Dr: Copies to: Charles [...] negative unless noted below or in HPI [facility] Medical History (Updated 05/23/24 @ 10:23 [...] health maintenance 11/02/18 [History Confirmed 05/23/24] omega 9-exs-rte-fish oil 1,000 mg (120 mg-180 mg) capsule (Fish Oil) 1 cap PO DAILY 11/02/18 [History Confirmed 05/23/24] lactobacillus comb no.10 20 billion cell capsule (Probiotic) 20,000 mmu cells PODAILY 03/06/23 [History Confirmed 05/23/24] ondansetron 8 mg disintegrating tablet 8 mg PO Q8H PRN Nausea 04/05/23 [History Confirmed 05/23/24] denosumab 60 mg/mL subcutaneous syringe (Prolia) 60 mg subcut [id number] 06/26/23 [History Confirmed 05/23/24] vortioxetine 10 mg [...] tissue swelling but no obvious fluctuance noted. [place] normal. AIN, PIN, radial, median, ulnar nerves [...] % (Auto) 81.9, Lymph % (Auto) 9.0, [place] % (Auto) 7.4, Eos % (Auto) 1.1, Baso % (Auto) 0.6, Nucleat RBC Rel Count 0.0, Neut # (Auto) 8.5 H, Lymph # (Auto) 0.9 L, [place] # (Auto) 0.8, Eos # (Auto) 0.1, [...] A Haji DO 05/22/241811 Signed By: 05/23/[address] [place], [place] [address]Consult note Author Jorge A Haji [facility] HospitalNote Date/TimeNovember 2023 1:11pm [place] [address] Orthopedic Consult Note Signed Patient: Evan Gill MR#: [id number] : 1955 Acct:[id number] Age/Sex: 68 / F Adm Date: 4 Loc: ER Room: Type: DEP ER Attending Dr: Copies to: DO Jorge [...] negative unless noted below or in HPI [facility] Medical History (Updated 05/23/24 @ 10:23 [...] release 81 mg PO DAILY health maintenance 04/26/19 [History Confirmed 05/23/24] omega 0-zzp-soc-fish oil 1,000 mg (120 mg-180 mg) capsule (Fish Oil) 1 cap PO DAILY 11/02/18 [History Confirmed 05/23/24] lactobacillus comb no.10 20 billion cell capsule (Probiotic) 20,000 mmu cells PODAILY 03/06/23 [History Confirmed 05/23/24] ondansetron 8 mg disintegrating tablet 8 mg PO Q8H PRN Nausea 04/05/23 [History Confirmed 05/23/24] denosumab 60 mg/mL subcutaneous syringe (Prolia) 60 mg subcut [id number] 06/26/23 [History Confirmed 05/23/24] vortioxetine 10 mg [...] tissue swelling but no obvious fluctuance noted. [place] normal. AIN, PIN, radial, median, ulnar nerves [...] % (Auto) 81.9, Lymph % (Auto) 9.0, [place] % (Auto) 7.4, Eos % (Auto) 1.1, Baso % (Auto) 0.6, Nucleat RBC Rel Count 0.0, Neut # (Auto) 8.5 H, Lymph # (Auto) 0.9 L, [place] # (Auto) 0.8, Eos # (Auto) 0.1, [...] signed by Jorge A Haji DO> 05/23/[address] [place] [address] Work Phone: Discharge summary Author Jm Trujillo [facility] October 28, 2023 12:30pmNote Date/TimeApril 2023 12:27pm[place] [address] Discharge Summary Signed Patient: Evan Gill MR#: [id number] : 1955 Acct:[id number] Age/Sex: 68 / F Adm Date: 4 Loc: 4N Room: 6I2271-[address]: Jm Trujillo DO Copies to: [...] assisted low anterior resection for rectal cancer [facility], awaiting plans for ileostomy takedownin the next month or so. Presentation to hospital with intractable abdominal pain when the iliostomy suddeny stopped having any output. Summary Hospital Course Hospital course: This is a 68-year-old woman with a history of rectal cancer. Several months agoshe has undergone a laparoscopic assisted low anterior resection with rectal cancer at the [facility]. She has had a diverting loop ileostomy [...] She presented emergency room. CT scanning showed obstructionat the level of the ileostomy, with some fecalization of the small intestine leading right up to the ileostomy itself. The ER physicians did contact the [facility] because hercolorectal surgeon is based there but there were no beds available at that hospital. Therefore she was admitted to the hospital here to [facility]. She was seen in consultation by [...] 1 TABLET BY MOUTH ONCE DAILY omega 0-sog-sda-fish oil [Fish Oil] 1,000 mg (120 mg-180 [...] Prolia 60 mg/mL Syringe 60 mg SUBCUT [id number] Patient Comments: Last received in November 2022 [...] % (Auto) 66.8, Lymph % (Auto) 13.6, [place] % (Auto) 11.9, Eos % (Auto) 7.1, Baso % (Auto) 0.6, Nucleat RBC Rel Count 0.1, Neut # (Auto) 3.8, Lymph # (Auto) 0.8 L, [place] # (Auto) 0.7, Eos # (Auto) 0.4, Baso # (Auto) 0.0, PHA CreatinineClear 61.83, Sodium 141, Potassium 3.9, Chloride 104, Carbon Dioxide 31.8 H, Anion Gap 9.1, BUN 11,Creatinine 0.60, Est GFR (CKD-EPI) > 60.0 Documented By: Jm Trujillo DO 1217 Signed By: <Electronically signed by Jm Trujillo DO> 10/28/23 1230 [facility] Work Phone: Evaluation noteNo assessment information available [facility] Work Phone: evaluation noteNo [facility] [employer] Other evaluation note* Diagnosis Rectal adenocarcinoma (HCC)- Primary Malignant neoplasm of rectum [facility] Diagnosis Rectal adenocarcinoma (HCC)- Primary Malignant neoplasm of rectum Rectal mass- Primary Other symptoms involving digestive system [facility] Diagnosis Rectal cancer (HCC)- Primary Malignant neoplasm of rectum [facility]* Diagnosis Rectal cancer (HCC)- Primary Malignant neoplasm of rectum [facility]* Diagnosis Rectal adenocarcinoma (HCC)- Primary Malignant neoplasm of rectum [facility]* Diagnosis Rectal adenocarcinoma (HCC)- Primary Malignant neoplasm of rectum [facility] Diagnosis Onset Date Resolution Status Chest pain acute [facility] Work Phone: evaluation note* Diagnosis Onset Date Resolution Status Chest pain acuteColorectal canceracute [facility] Work Phone: evaluation note* Diagnosis Rectal cancer (HCC)- Primary Malignant neoplasm of rectum Dyspepsia Dyspepsia and other specified disorders of function of stomach [facility] Diagnosis Rectal adenocarcinoma (HCC)- Primary Malignant neoplasm of rectum [facility]* Diagnosis Rectal cancer (HCC)- Primary Malignant neoplasm of rectum [facility] Diagnosis Rectal adenocarcinoma (HCC)- Primary Malignant neoplasm of rectum [facility]* Diagnosis Muscle soreness- Primary Mylagia and myositis, unspecified [facility]* Diagnosis Rectal cancer (HCC)- Primary Malignant neoplasm of rectum [facility] Diagnosis Dysuria- Primary [facility] Diagnosis Dysuria- Primary Rectal adenocarcinoma (HCC) Malignant neoplasm of rectum [facility]* Diagnosis Muscle soreness- Primary Mylagia and myositis, unspecified [facility]* Diagnosis Rectal adenocarcinoma (HCC)- Primary Malignant neoplasm of rectum [facility]* Diagnosis Rectal adenocarcinoma (HCC)- Primary Malignant neoplasm of rectum [facility]* Diagnosis Screen for colon cancer- Primary Special screening for malignant neoplasms, colon Rectal cancer (HCC) Malignant neoplasm of rectum documented in this encounter [facility] note* Diagnosis Rectal cancer (HCC) Malignant neoplasm of rectum documented in this encounter [facility] note* Diagnosis Rectal cancer (HCC)- Primary Malignant neoplasm of rectum documented in this encounter [facility] note* Diagnosis Rectal cancer (HCC)- Primary Malignant neoplasm of rectum documented in this encounter [facility] note* Diagnosis Other chest pain- Primary Essential hypertension Unspecified essential hypertension Colorectal cancer (CMS/HCC) Malignant neoplasm of colon, unspecified site BMI 24.0-24.9, adult History of atrial fibrillation Personal history of other diseases of circulatory system documented in this encounter [facility] Work Phone: Evaluation note* Diagnosis Pre-op examination- Primary Preoperative examination, unspecified Atrial fibrillation, unspecified type (HCC) Essential hypertension Unspecified essential hypertension Hyperlipidemia, unspecified hyperlipidemia type Gastroesophageal reflux disease without esophagitis Esophageal reflux Other iron deficiency anemia Rectal cancer (HCC) Malignant neoplasm of rectum Mixed anxiety depressive disorder Dysthymic disorder Rectal cancer (HCC) Malignant neoplasm of rectum documented in this encounter [facility] note* Diagnosis Rectal cancer (HCC)- Primary Malignant neoplasm of rectum [facility]* Diagnosis Follow-up examination after colorectal surgery- Primary Follow-up examination, following other surgery documented in this encounter [facility] note* Diagnosis Onset Date Resolution Status SBO (small bowel obstruction) [facility] Work Phone: Evaluation note* Diagnosis Onset Date Resolution Status Ileostomy status acuteRectal canceracuteSBO (small bowel obstruction)[facility] Work Phone: Evaluation note* Diagnosis History of rectal cancer Personal history of malignant neoplasm of rectum, rectosigmoid junction, and anus documented in this encounter [facility] note* Diagnosis Muscle soreness- Primary Mylagia and myositis, unspecified documented in this encounter [facility] note* Diagnosis History of rectal cancer- Primary Personal history of malignant neoplasm of rectum, rectosigmoid junction, and anus documented [facility]* Diagnosis Onset Date Resolution Status SBO (small bowel obstruction) resolved [facility] Work Phone: Evaluation note* Diagnosis Onset Date Resolution Status SBO (small bowel obstruction) resolvedAcute UTIacutePartial small bowel obstructionacute [facility] Work Phone: Evaluation note* Diagnosis Onset Date Resolution Status Ileostomy status acuteSBO (small bowel obstruction)resolvedAbdominal painacuteAcute UTIacute Complete small bowel obstructionacutePartial small bowel obstructionacute Vomitingacute [facility] Work Phone: Evaluation note* Diagnosis Pain in right hip- Primary Pain in joint, pelvic region and thigh documented in this [facility]* Diagnosis Follow-up examination after colorectal surgery- Primary Follow-up examination, following other surgery documented [facility]* Diagnosis Rectal adenocarcinoma (HCC)- Primary Malignant neoplasm of rectum Follow-up examination after colorectal surgery- Primary Follow-up examination, following other surgery [facility]* Diagnosis Follow-up examination after colorectal surgery- Primary Follow-up examination, following other surgery Rectal cancer (HCC) 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 [facility]* Diagnosis History of rectal cancer- Primary Personal history of malignant neoplasm of rectum, rectosigmoid junction, and anus documented in this encounter [facility] note* Diagnosis Rectal adenocarcinoma (HCC) Malignant neoplasm of rectum Pre-op examination- Primary Preoperative examination, unspecified Atrial fibrillation, unspecified type (HCC) Essential hypertension Unspecified essential hypertension Hyperlipidemia, unspecified hyperlipidemia type Gastroesophageal reflux disease without esophagitis Esophageal reflux Other iron deficiency anemia Rectal cancer (HCC) Malignant neoplasm of rectum Mixed anxiety depressive disorder Dysthymic disorder documented [facility]* Diagnosis Pre-op examination- Primary Preoperative examination, unspecified Atrial fibrillation, unspecified type (HCC) Essential hypertension Unspecified essential hypertension Hyperlipidemia, unspecified hyperlipidemia type Gastroesophageal reflux disease without esophagitis Esophageal reflux Other iron deficiency anemia Rectal cancer (HCC) Malignant neoplasm of rectum Mixed anxiety depressive disorder Dysthymic disorder Rectal adenocarcinoma (HCC)- Primary Malignant neoplasm of rectum documented in this encounter [facility] note* Diagnosis Rectal adenocarcinoma (HCC)- Primary Malignant neoplasm of rectum documented in this encounter [facility] note* Diagnosis Pre-op examination- Primary Preoperative [...] junction, and anus documented in this encounter [facility] note* Diagnosis Onset Date Resolution Status Admit Date Cellulitis of right middle finger acuteNovember 2023 11:20am [facility] Work Phone: Evaluation note* Diagnosis Pre-op [...] neoplasm of rectum documented in this encounter [facility] note* Diagnosis Pre-op examination- Primary Preoperative examination, unspecified Atrial fibrillation, unspecified type (HCC) Essential hypertension Unspecified essential hypertension Hyperlipidemia, unspecified hyperlipidemia type Gastroesophageal reflux disease without esophagitis Esophageal reflux Other iron deficiency anemia Rectal cancer (HCC) Malignant neoplasm of rectum Mixed anxiety depressive disorder Dysthymic disorder Rectal adenocarcinoma (HCC)- Primary Malignant neoplasm of rectum documented in this encounter [facility] note* Diagnosis Pre-op examination- Primary Preoperative examination, unspecified Atrial fibrillation, unspecified type (HCC) Essential hypertension Unspecified essential hypertension Hyperlipidemia, unspecified hyperlipidemia type Gastroesophageal reflux disease without esophagitis Esophageal reflux Other iron deficiency anemia Rectal cancer (HCC) Malignant neoplasm of rectum Mixed anxiety depressive disorder Dysthymic disorder Low anterior resection syndrome documented in this encounter [facility] note* Diagnosis Pre-op examination- Primary Preoperative examination, unspecified Atrial fibrillation, unspecified type (HCC) Essential hypertension Unspecified essential hypertension Hyperlipidemia, unspecified hyperlipidemia type Gastroesophageal reflux disease without esophagitis Esophageal reflux Other iron deficiency anemia Rectal cancer (HCC) Malignant neoplasm of rectum Mixed anxiety depressive disorder Dysthymic disorder Muscle spasm- Primary Spasm of muscle Low anterior resection syndrome documented in this encounter [facility] note* Diagnosis Pre-op examination- Primary Preoperative [...] neoplasm of rectum documented in this encounter [facility] note* Diagnosis Pre-op examination- Primary Preoperative examination, unspecified Atrial fibrillation, unspecified type (HCC) Essential hypertension Unspecified essential hypertension Hyperlipidemia, unspecified hyperlipidemia type Gastroesophageal reflux disease without esophagitis Esophageal reflux Other iron deficiency anemia Rectal cancer (HCC) Malignant neoplasm of rectum Mixed anxiety depressive disorder Dysthymic disorder Muscle spasm- Primary Spasm of muscle Low anterior resection syndrome- Primary documented in this encounter [facility] note* Diagnosis Pre-op examination- Primary Preoperative [...] junction, and anus documented in this encounter [facility] note* Diagnosis Pre-op examination- Primary Preoperative [...] anterior resection syndrome documented in this encounter [facility] note* Diagnosis Pre-op examination- Primary Preoperative examination, unspecified Atrial fibrillation, unspecified type (HCC) Essential hypertension Unspecified essential hypertension Hyperlipidemia, unspecified hyperlipidemia type Gastroesophageal reflux disease without esophagitis Esophageal reflux Other iron deficiency anemia Rectal cancer (HCC) Malignant neoplasm of rectum Mixed anxiety depressive disorder Dysthymic disorder Encounter for follow-up surveillance of rectal cancer Unspecified follow-up examination documented [facility] this [facility] Author Tomi Greene [facility] HospitalNote Date/TimeMarch 2024 10:43[place] [id number] Gastroenterology H&P Signed Patient: Evan Gill MR#: [id number] : 1955 Acct:[id number] Age/Sex: 69 / F Adm Date: 5 Loc: Room: Type: [facility] Attending Dr: Tomi Greene MD Copies to: Charles Bazzi,DO Tomi Greene MD~ Date of Service: 09/18/2024 HISTORY & PHYSICAL: Patient's history with special attention to the cardiovascular, pulmonary systems and the current problem was reviewed with the patient immediately prior to the procedure. Present medications and doses reviewed in the EMR. Allergies and pertinent laboratory tests were also re viewedat this time in the EMR. The physical [...] signed by Tomi Greene MD> 09/18/24 1043 [facility] Work Phone: History general Narrative - Reported* Type Description Date Medical History colonoscopy 2005 Medical [id number] EKG doneMedical [id number] pelvic exam done - follows with her OB/GYNMedical [id number] mammogram done - follows with her OB/GYNMedical [id number] CT scanMedical HistoryBlood Work done on 10-20-11 Lipid, CMP, CBC, T4, TSHMedical History12/31/12 Carotid USMedical History10/28/14 LabsMedical Vgbfojg72/2015 colonoscopy-normalMedical Gjmtalk63/17/15 EKG in officeMedical History10/14/2015 Mammogram-Dr. Cisneros History08/2015 Aorta & Carotid Screenings; moderate stenosisMedical History11/25/2016 BONE DENSITY SCANMedical Vhvmafq57/2017 GXT stress test-abnormalMedical Fwgvgsk92/03/19 Cystoscopy w/ Dr. Swan Vritjes07/[address] Pierre Historygallbladder Surgical Historyankle and footSurgical Historyscreening colonocopy -Dr. Gonzalze06/22/15Hospitalization Historysee NPTV Other History general Narrative - Reported* Type Description Date Medical History colonoscopy 2005 Medical [id number] EKG doneMedical [id number] pelvic exam done - follows with her OB/GYNMedical [id number] mammogram done - follows with her OB/GYNMedical [id number] CT scanMedical HistoryBlood Work done on 10-20-11 Lipid, CMP, CBC, T4, TSHMedical History12/31/12 Carotid USMedical History10/28/14 LabsMedical Dshqqoe73/2015 colonoscopy-normalMedical Gbkghta14/17/15 EKG in officeMedical History10/14/2015 Mammogram-Dr. Cisneros History08/2015 Aorta & Carotid Screenings; moderate stenosisMedical History11/25/2016 BONE DENSITY SCANMedical Nyutoko19/2017 GXT stress test-abnormalMedical Dvdimav40/03/19 Cystoscopy w/ Dr. Swan Dmvxnvy35/[address] Cisneros Gmmffnv40/11/22 MammogramMedical HistoryNON SMOKERSurgical HistorygallbladderSurgical History ankle and footSurgical Historyscreening colonocopy -Dr. Gonzalez06/22/15 Hospitalization Historysee NPTV Other History general Narrative - Reported* Type Description Date Medical History colonoscopy 2004 Medical [id number] EKG doneMedical [id number] pelvic exam done - follows with her OB/GYNMedical Hjeumlw6848 mammogram done - follows with her OB/GYNMedical Zbyfghx1088 CT scanMedical HistoryBlood Work done on 10-20-11 Lipid, CMP, CBC, T4, TSHMedical History12/31/12 Carotid USMedical History10/28/14 LabsMedical Wzgdjwl16/2015 colonoscopy-normalMedical Vjqimat27/17/15 EKG in officeMedical History10/14/2015 Mammogram-Dr. Cisneros History08/2015 Aorta & Carotid Screenings; moderate stenosisMedical History11/25/2016 BONE DENSITY SCANMedical Niazayz50/2017 GXT stress test-abnormalMedical Mwkakxo19/03/19 Cystoscopy w/ Dr. Duongedical Jqhbvtj12/[address] Cisneros Fatrwlj28/11/22 MammogramMedical HistoryNON SMOKERMedical Wpyjvoh1742/08/23 Colonoscopy, Diagnosed with rectal cancerMedical Xmlymqc6933/10 Stress Test, NegativeSurgical HistorygallbladderSurgical Historyankle and footSurgical Historyscreening colonocopy -Dr. Gonzalez06/22/15Hospitalization Historysee aboveHospitalization HistoryChest Pain FR04/05/23-04/06/23 Resilience Other History of Present illness Narrative* Patient [...] follow in the future on as-needed basis -[facility] DO Work Phone: Hospital Discharge instructions Additional Instructions Resume your Keflex and Bactrim antibiotic upon completion of outpatient IV therapy. You have been scheduled for for vancomycin antibiotic infusions.[facility] Work Phone: Hospital Discharge instructions Additional [...] to decrease risk of infection after surgery [facility] Work Phone: Reason for referral (narrative)* Outpatient Procedure (Routine) - Pending ReviewSpecialtyDiagnoses / ProceduresReferred By Contact [facility] Diagnoses Dyspepsia Procedures EGD DIAGNOSTIC ESOPHAGOGASTRODUODENOSCOPY TRANSORAL DIAGNOSTIC Tapan Corona MD [address] [place] [address] [facility] [address] [place] [address] Referral IDStatusReasonStart DateExpiration DateVisits RequestedVisits [id number] Auto-Generated Referral / * Consult, Test, Treat (Routine) - AuthorizedSpecialtyDiagnoses / Procedures Referred By ContactReferred To ContactGastroenterology Diagnoses Rectal cancer (HCC) Procedures CONSULT TO GASTROENTEROLOGY OFFICE/OUTPATIENT [facility] 60-74 MINUTES Naheed Elias PA-C [address] [place] [address] [place] [address] Referral IDStatusReasonStart DateExpiration DateVisits RequestedVisits [id number] PCP Requested Referral / [facility] for referral (narrative)* Outpatient Procedure (Routine) - ClosedSpecialtyDiagnoses / ProceduresReferred By ContactReferred To Contact [facility] Diagnoses Rectal mass Procedures SIGMOIDOSCOPY SIGMOIDOSCOPY FLX DX W/COLLJ SPEC BR/[place] [address] [place] [id number] [place] [id number] Referral IDStatusReasonStart DateExpiration DateVisits RequestedVisits [id number] Auto-Generated Referral / [facility] for referral (narrative)* Outpatient Procedure (Routine) - ClosedSpecialtyDiagnoses / ProceduresReferred By ContactReferred To Contact [facility] Diagnoses Rectal cancer (HCC) Procedures SIGMOIDOSCOPY SIGMOIDOSCOPY FLX DX W/COLLJ SPEC BR/WA IF PFRMD [facility] [address] [place] [address] [address] Referral IDStatusReasonStart DateExpiration DateVisits RequestedVisits [id number] Auto-Generated Referral / [facility] for referral (narrative)* Consultation (Routine) - AuthorizedSpecialtyDiagnoses / ProceduresReferred By ContactReferred To ContactCardiology Diagnoses Other chest pain Essential hypertension Procedures Follow Up In Cardiology Marcos Rios MD [address] [facility], [facility] [address] [place] [address] Marcos Rios MD [address] [facility], [facility] [address] [place] [address] Referral IDStatusReasonStart DateExpiration DateVisits RequestedVisits [id number]/16/20241/ [facility] Work Phone: reason for visit Narrative* Outpatient Procedure (Routine) - ClosedSpecialtyDiagnoses / ProceduresReferred By ContactReferred To [facility] Diagnoses Rectal mass Procedures SIGMOIDOSCOPY SIGMOIDOSCOPY FLX DX W/COLLJ SPEC BR/[place] [address] [place] [id number] [address] Referral IDStatusReasonStart DateExpiration DateVisits RequestedVisits [id number] Auto-Generated Referral / [facility] for visit Narrative* Outpatient Procedure (Routine) - ClosedSpecialtyDiagnoses / ProceduresReferred By ContactReferred To Contact [facility] Diagnoses Rectal cancer (HCC) Procedures SIGMOIDOSCOPY SIGMOIDOSCOPY FLX DX W/COLLJ SPEC BR/WA IF PFRMD [facility] [address] [facility] [address] [place] [address] [place] [address] [place] [address] Referral IDStatusReasonStart DateExpiration DateVisits RequestedVisits [id number] Auto-Generated Ref[facility] Narrative* Outpatient Procedure (Routine) - ClosedSpecialtyDiagnoses / ProceduresReferred By ContactReferred To Contact [facility] Diagnoses Encounter for follow-up surveillance of rectal cancer Procedures COLONOSCOPY SCREENING COLONOSCOPY FLX DX W/[place] [address] [place] [address] Phone: tel: fax: [facility] [address] [place] [address] Referral IDStatusReasonStart DateExpiration DateVisits RequestedVisits [id number] Auto-Generated Referral / [facility] Summary Purpose Family History Relationship Condition Age at Onset Recorded Date/T haydee father Coronary artery disease Unknown ArthritisUnknownHypertensionUnknownNot SpecifiedMalignant neoplasm of lung Unknown Unknown Family Member Name Dates Details Family history of CABG: Fath er(V17.49, Z82.49) Status:ActiveFamily history of chronic obstructive pulmonary disease: Father (V17.6, Z82.5) Status:ActiveFamily history of lung cancer: Mother(V16.1, Z80.1) Status:ActiveNo pertinent family history: Sister, Brother(V49.89, Z78.9) Status:Active Relationship Condition Age at Onset Recorded Date/T haydee father Coronary artery disease Unknown ArthritisUnknownHypertensionUnknownNot SpecifiedMalignant neoplasm of lung UnknownfatherHypertensionUnknownDeceasedUnknowngrandparentHeart diseaseUnknown Cardiac diseaseUnknownDiabetes mellitusUnknowngrandparentDeceasedUnknownNot SpecifiedHypertensionUnknown Relationship Condition Age at Onset Recorded Date/T haydee father Coronary artery disease Unknown ArthritisUnknownHypertensionUnknownmotherMalignant neoplasm of lungUnknownfather HypertensionUnknownDeceasedUnknowngrandparentHeart diseaseUnknownCardiac disease UnknownDiabetes mellitusUnknowngrandparentDeceasedUnknownmotherHypertension Unknown Relationship Condition Age at Onset Recorded Date/T haydee father Coronary artery disease Unknown ArthritisUnknownHypertensionUnknownmotherArthritisUnknownMalignant neoplasm of lungUnknownfatherDeceasedUnknowngrandparentHeart diseaseUnknownDeceasedUnknown grandparentDiabetes mellitusUnknownHeart diseaseUnknowngrandparentDeceased UnknownmotherDeceasedUnknown Relationship Condition Age at Onset Recorded Date/T haydee father Coronary artery disease Unknown ArthritisUnknownHypertensionUnknownDeceasedUnknownmotherArthritisUnknown Malignant neoplasm of lungUnknowngrandparentHeart diseaseUnknowngrandparent Diabetes mellitusUnknownHeart diseaseUnknowngrandparentDeceasedUnknown Relationship Condition Age at Onset Recorded Date/T haydee father Coronary artery disease Unknown ArthritisUnknownHypertensionUnknownDeceasedUnknownmotherArthritisUnknown Malignant neoplasm of lungUnknowngrandparentDeceasedUnknownHeart diseaseUnknown Diabetes mellitusUnknown Advance Directives Advance Directive Response Recorded Date/ [...] Bowel Habi ts, Bloody Stools, Gas chest painReason for VisitChest pain Chief Complaint Change in Bowel Habi ts, Bloody Stools, Gas chest painReason for VisitChest pain Colorectal cancer Chief Complaint chest pain Rectal CancerReason for VisitChest pain Colorectal cancer Chief Complaint abd pain Reason for Visit SBO (small bowel obs truction) Chief Complaint abd pain abd painReason for VisitIleostomy status Rectal cancer SBO (small bowel obstruction) Chief Complaint abd pain abd pain E78.5Reason for VisitSBO (small bowel obstruction) Chief Complaint abd pain abd pain E78.5 abd painReason for VisitSBO (small bowel obstruction) Acute UTI Partial small bowel obstruction Chief Complaint abd pain abd pain E78.5 abd pain abd painReason for VisitIleostomy status SBO (small bowel obstruction) Abdominal pain [...] Cellulitis of right finger May 11:11am ER [facility] RT MIDDLE FINGER PAIN WX Novembe r 2023 11:20am Reason for Visit Admit Date [facility] of right middle [facility] Chief Complaint Admit Date Amb Documentation April 30, 2024 1 :32pm Rt middle finger May 22, 2024 11:48am Rt middle finger May 22, 2024 6:12pm call back May 23, 2024 8:15am L03.011 - Cellulitis of right finger May 11:11am ER [facility] RT MIDDLE FINGER PAIN WX Novembe r [...] 2024 11:20am Cellulitis of right middle finger [facility] 11:20am Infected finger June 11, 2024 1 0:34am Cellulitis of right middle finger [facility] er 2023 10:34am Other specified postprocedural states De cember , 2024 10:34am Anxiety and depression June 11 12:35pm [...] 8: 19am Other specified postprocedural states Ja kaiserary 2024 8:19am Chief Complaint Admit Date Rt middle finger May 22, 2024 11:48am Rt middle finger May 22, 2024 6:12pm call back May 23, 2024 8:15am L03.011 - Cellulitis of right finger Nov ember 2023 11:11am ER [facility] RT MIDDLE FINGER PAIN WX Novembe r [...] 2023 10:34am Other specified postprocedural states De 2023 10:34am Anxiety and depression June 11 [...] Cellulitis of right finger May 11:11am ER [facility] RT MIDDLE FINGER PAIN WX Novembe r [...] Cellulitis of right finger May 11:11am ER [facility] RT MIDDLE FINGER PAIN WX Novembe r [...] 2023 8:10am Other specified postprocedural states De 2023 8:10am Infected finger July 17, 2024 [...] 2023 8:10am Other specified postprocedural states De 2023 8:10am Infected finger July 17, 2024 8: 19am Other specified postprocedural states Kevin saabary 2024 8:19am Infected finger August 14, 2024 1 2:45pm Other specified postprocedural states Fe bruary 2024 12:45pm Arthritis of finger September 04, 2024 2:43pm Infected finger September 04, 2024 2:43pm Other specified postprocedural states [facility] 2024 2:43pm Anxiety and depression September 09, [...] 8: 19am Other specified postprocedural states Ja [facility] 2024 8:19am Infected finger August 14, 2024 1 2:45pm Other specified postprocedural states [facility] 2024 12:45pm Arthritis of finger September 04, 2024 2:43pm Infected finger September 04, 2024 2:43pm Other specified postprocedural states [facility] 2024 2:43pm Anxiety and depression September 09, 2024 9 :54am Colorectal cancer September 09, 2024 9:54 am Hyperlipidemia September 09, 2024 9:54 am Infected finger September 09, 2024 9:54 am Arthritis of finger September 27, 2024 11: 15am Infected finger September 27, 2024 11: 15am Other specified postprocedural states [facility] 2024 11:15am Chief Complaint Admit Date 4 [...] 2024 11: 15am Other specified postprocedural states Ma rc 2024 11:15am Arthritis of finger October 18, 2024 11: 03am Infected finger October 18, 2024 11: 03am Other specified postprocedural states Ap ril 2024 11:03am Reason for Referral SpecialtyDiagnoses / ProceduresReferred By ContactReferred To ContactREHAB AND [facility] Diagnoses Pain in right hip Procedures CONSULT TO PHYSICAL THERAPY PHYSICAL THERAPY EVALUATION HIGH COMPLEX [place] [address] [place] [address] [facility] [address] [place] [address] Referral IDStatusReasonStart DateExpiration DateVisits RequestedVisits [id number] PCP Requested Referral Auto-Generated Referral [id number] / ProceduresReferred By ContactReferred To ContactGeneral Surgery Diagnoses Rectal cancer (HCC) Procedures CONSULT TO GENERAL SURGERY OFFICE/OUTPATIENT [facility] MDM 60-74 MINUTES Tapan Corona MD [address] [place] [address] Referral IDStatusReasonStart DateExpiration DateVisits RequestedVisits [id number] PCP Requested Referral /[id number] / ProceduresReferred By ContactReferred To ContactMR IMAGING Diagnoses Rectal cancer (HCC) Procedures MRI RECTUM WO/W IVCON MRI PELVIS W/O & W/CONTRAST MATERIAL Tapan Corona MD [address] [place] [address] [facility] [place] [address] Referral IDStatusReasonStart DateExpiration DateVisits RequestedVisits [id number] Auto-Generated Referral /[id number] / ProceduresReferred By ContactReferred To Contact Diagnoses Rectal adenocarcinoma (HCC) Procedures CT SIM PLANNING RADIATION ONCOLOGY THER RAD SIMULAJ-AIDED FIELD SETTING COMPLEX Del Hudson MD [address] [place] [address] [place] [address] Referral IDStatusReasonStart DateExpiration DateVisits RequestedVisits [id number] Review PCP Requested Referral /[id number] / ProceduresReferred By ContactReferred To ContactMR IMAGING Diagnoses Rectal adenocarcinoma (HCC) Procedures MRI RECTUM WO/W IVCON MRI PELVIS W/O & W/CONTRAST MATERIAL Del Hudson MD [address] [place] [address] [place] [address] [facility] [place] [address] Referral IDStatusReasonStart DateExpiration DateVisits RequestedVisits [id number] Auto-Generated Referral / Reason diagnostic colonosco py Diagnosis 1 Change in bowel habi ts (R19.4) Diagnosis 2 Flatulence (R14.3) Diagnosis 3 Bloody stools (K92.1 ) Referral Organization [facility] Referring Provider First Name Charles Referring Provider Last Name Dixie Referring Provider Specialty Family Prac jennifer Referred Provider Specialty Gastroentero logy Referral Priority Routine Reason *FU 10/11 needs ca rdiac clearance (right knee replacement in November) ; nohc Diagnosis 1 Atrial fibrillation (I48.91) Diagnosis 2 Primary osteoarthrit is of right knee (M17.11) Referral Organization [facility] Referring Provider First Name Charles Referring Provider Last Name Dixie Referring Provider Specialty Family Prac jennifer Referred Organization [facility] Referred Address [address] [facility] [address] ,[place], [place],[address] Referred Provider Specialty Cardiology Referral Priority Routine General Notes Dominga Vázquez 023 08:56:54 AM >Received today. NO office request us to fax the referral to them and they will review and call patient to schedule their appointment. Referral was fax Additional Source Comments INFORMATION SOURCE (unrecogn ized section and content) DATE CREATED AUTHOR 01/02/2018 [facility] DATE CREATED AUTHOR AUTHOR'S ORGANIZ ATION 10/27/2022 [employer] DATE CREATED AUTHOR AUTHOR'S ORGANIZ ATION 11/11/2022 [facility] DATE CREATED AUTHOR AUTHOR'S ORGANIZ ATION 04/25/2023 [facility] DATE CREATED AUTHOR AUTHOR'S ORGANIZ ATION 07/27/2023 [facility] DATE CREATED AUTHOR AUTHOR'S ORGANIZ ATION 11/22/2023 [facility] DATE CREATED AUTHOR AUTHOR'S ORGANIZ ATION 02/21/2024 [facility] DATE CREATED AUTHOR AUTHOR'S ORGANIZ ATION 10/30/2024 [facility] DATE CREATED AUTHOR AUTHOR'S ORGANIZ ATION 03/08/2025 [facility] DATE CREATED AUTHOR AUTHOR'S ORGANIZ ATION 03/15/2025 [facility] DATE CREATED AUTHOR AUTHOR'S ORGANIZ ATION 04/18/2025 [facility] REASON FOR VISIT (unrecogniz ed section and content) ReasonCommentsOrdersReasonCommentsRectal CancerReasonCommentsCare Coordination Treatment planReasonCommentsFirst Time Treatment EducationReasonCommentsPatient EducationReasonCommentsRefill RequestReasonOnset DateCommentsSimulation Request Form03/22/2023ReasonCommentsRadiotherapy On-treatment VisitReasonCommentsCare [id number] treatment follow up callReasonCommentsRadiology Pre Procedure InstructionsReasonCommentsCare CoordinationClinical updateReasonCommentsRectal CancerOTVReasonCommentsCare CoordinationER recommendationsReasonCommentsRectal CancerReasonCommentsUrinalysisReasonCommentsAppointment reminderAppointment reminder call--spoke with patient--gave directions to the office.Specialty Diagnoses / ProceduresReferred By ContactReferred To ContactMR IMAGING Diagnoses Rectal cancer (HCC) Procedures MRI RECTUM WO/W IVCON MRI PELVIS W/O & W/CONTRAST MATERIAL Tapan Corona MD [address] [place] [address] [place] [id number] Referral IDStatusReasonStart DateExpiration DateVisits RequestedVisits [id number] Auto-Generated Referral [id number] CancerFollow upReasonCommentsCare CoordinationMedication updateReasonCommentsFollow-up2 week [facility] dcReasonComments Care CoordinationHospital d/c follow up callReasonCommentsCare Coordinator - OtherTumor boardReasonCommentsCare CoordinationFollow up appointmentReason CommentsPost Ops/p a Robotic Assisted Laparoscopic Proctosigmoidectomy (Low Anterior Resection) with Colorectal Anastomosis and Diverting Loop Ileostomy, Laparoscopic Mobilization of Splenic Flexure, Flexible Sigmoidoscopy on 08/25/[address] Singer for rectal cancerReasonCommentsRectal Cancer4 week follow upReasonCommentsPatient QuestionMedication QuestionReasonCommentsCare CoordinationLab resultsReasonCommentsPatient QuestionReasonCommentsCare CoordinationsignateraReasonCommentsPost Ops/p a Flexible Sigmoidoscopy, Ileostomy Closure on 11/08/[address] Singer.ReasonCommentsPort RemovalReason CommentsCare CoordinationLab questionReasonCommentsEstablished Patient Follow-Up Post OpReversal 11/08/23ReasonCommentsFuture AppointmentReasonOnset DateComments Refill Oedyyax13/30/2024ReasonCommentsSignatera resultsSpecialtyDiagnoses / ProceduresReferred By ContactReferred To ContactMR IMAGING Diagnoses Rectal adenocarcinoma (HCC) Procedures MRI RECTUM WO/W IVCON MRI PELVIS W/O & W/CONTRAST MATERIAL Del Hudson MD [address] [place] [address] [place] [address] Mr Imaging [facility] Referral IDStatusReasonStart DateExpiration DateVisits RequestedVisits [id number] Auto-Generated Referral [id number] CancerFollow upReasonCommentsPost Radiation Treatment Follow UpReasonCommentsEstablished PatientReasonComments Results, LabReasonCommentsEstablished PatientReasonCommentsManometrySpecialty Diagnoses / ProceduresReferred By ContactReferred To [facility] Diagnoses Low anterior resection syndrome Procedures [facility] ANORECTAL MANOMETRY [place] [address] [place] [address] Phone: tel: fax: [facility] [address] [place] [address] Referral IDStatusReasonStminden city DateExpiration DateVisits RequestedVisits [id number] Auto-Generated Referral [id number] Patient's CallReasonCommentsPT Eval SpecialtyDiagnoses / ProceduresReferred By ContactReferred To ContactREHAB AND SPORTS THERAPY INS Diagnoses Low anterior resection syndrome Procedures CONSULT TO PHYSICAL THERAPY PHYSICAL THERAPY EVALUATION HIGH COMPLEX [address] [place] [address] [place] [address] Phone: tel: fax: [facility] [address] [place] [address] Referral IDStatusReasonStart DateExpiration DateVisits RequestedVisits [id number] PCP Requested Referral Auto-Generated Referral [id number] NMSpecialtyDiagnoses / Procedures Referred By ContactReferred To ContactCT IMAGING Diagnoses History of rectal cancer Rectal cancer (HCC) Procedures CT ABD/PEL W IVCON CT ABD & PELVIS W/CONTRAST Tapan Coroan MD [address] [place] [address] Phone: tel: fax: [place] [id number] Referral IDStatusReasonStart DateExpiration DateVisits RequestedVisits [id number] Auto-Generated Referral /[id number] TherapySpecialtyDiagnoses / ProceduresReferred By ContactReferred To ContactREHAB AND SPORTS THERAPY INS Diagnoses Low anterior resection syndrome Procedures PHYSICAL THERAPY EVALUATION HIGH COMPLEX [address] [place] [address] [place] [address] Phone: tel: fax: [facility] [address] [place] [address] ReasonCommentshistory of colon cancerReasonCommentsFollow UpLow anterior resection syndrome Care Teams (unrecognized sec tion and content) Team Status: Active Member Role Status Dates Charles Bazzi DO Primary Care Provider Active Team Status: Inactive Member Role Status Dates Charles Bazzi DO Primary Care Provider Active Sta rt: May 22, 2024 End: May 22, 2024Amaury Davies ProviderActiveStart: May 22, 2024 End: May 22, 2024Perfecto Chanel ProviderActiveStart: May 22, 2024 End: May 22, 2024 Team Status: Active Member Role Status Dates Charles Bazzi DO Primary Care Provider Active Sta rt: May 22, 2024 Amaury Davies ProviderActiveStart: May 22, 2024 Juan José Chanelending ProviderActiveStart: May 22, 2024 Team Status: Inactive Member Role Status Dates Charles Bazzi DO Primary Care Provider Active Sta rt: May 23, 2024 End: May 23, 2024Amaury Davies ProviderActiveStart: May 23, 2024 End: May 23, 2024 Team Status: Inactive Member Role Status Dates Charles Bazzi DO Primary Care Provider Active Sta rt: May 30, 2024 End: May 30, 2024Jorge A Haji DOAttending ProviderActiveStart: May 30, 2024 End: May 30, 2024 Team Status: Inactive Member Role Status Dates Charles Bazzi DO Primary Care Provider Active Sta rt: May 31, 2024 End: May 31olldamian Chester MDAttending ProviderActiveStart: May 31, 2024 End: May 31, 2024 Team Status: Active Member Role Status Dates Charles Bazzi DO Primary Care Provider Active Sta rt: May 31, 2024 Ellen Lambertending Provider, Other ProviderActiveStart: May 31, 2024 Team Status: Inactive Member Role Status Dates Charles Bazzi DO Primary Care Provide r, Attending Provider Active Start: June 04, 2024 End: June 04, 2024 Team Status: Inactive Member Role Status Dates Charles Bazzi DO Primary Care Provider Active Sta rt: June 11, 2024 End: June 11ollEllen Bonillaending ProviderActiveStart: June 11, 2024 End: June 11, 2024 Team Status: Inactive Member Role Status Dates Charles Bazzi DO Primary Care Provide r, Attending Provider Active Start: June 11, 2024 End: June 11, 2024 Team Status: Inactive Member Role Status Dates Charles Bazzi DO Primary Care Provider Active Sta rt: June 25, 2024 End: June 25emory Chester MDAttending ProviderActiveStart: June 25, 2024 End: June 25, 2024 Team Status: Inactive Member Role Status Dates Charles Bazzi DO Primary Care Provider Active Sta rt: July 17, 2024 End: July 17ollEllen Bonillaending ProviderActiveStart: July 17, 2024 End: July 17, 2024 Team Status: Inactive Member Role Status Dates Charles Bazzi DO Primary Care Provider Active Sta rt: August 14, 2024 End: August 14Ellen Lunaending ProviderActiveStart: August 14, 2024 End: August 14, 2024 [...] Sta rt: September 30, 2023 Patrice Springer DOEmerdomenico ProviderActiveStart: September 30, 2023 Violet Parnell Provider, Attending ProviderActiveStart: September 30, 2023 Team Status: Inactive Member Role Status Seda Bazzi DO Primary Care Provider, Attending Provi johnson Active Team Status: Inactive Member Role Status Seda Bazzi DO Primary Care Provider Active Raissa Medrano II ProviderActiveTeam MemberRelationshipSpecialty Start DateEnd Date Charles Bazzi [address] [place] [phone] PCP - GeneralFamily Medicine03/16/23 Colleen Solorio RN [address] [facility] [place] [address] Specialty Care CoordinatorHematology/Oncology03/22/23 Tapan Corona MD [address] [facility] [place] [address] PhysicianHematology/Oncology03/22/23 Naheed Elias PA-C [address] [facility] [place] [address] Physician AssistantHematology/Oncology03/22/23Team MemberRelationshipSpecialty Start DateEnd Date Charles Bazzi [address] [place] [phone] PCP - GeneralFamily Medicine03/16/23 Colleen Solorio RN [address] [facility] [place] [address] Specialty Care CoordinatorHematology/Oncology03/22/23 Tapan Corona MD [address] [facility] [place] [address] PhysicianHematology/Oncology03/22/23 Naheed Elias PA-C [address] [facility] [place] [address] Physician AssistantHematology/Oncology03/22/23Team MemberRelationshipSpecialty Start DateEnd Date Charles Bazzi [address] [place] [phone] PCP - GeneralFamily Medicine03/16/23 Colleen Solorio RN [address] [facility] [address] Specialty Care CoordinatorHematology/Oncology03/22/23 Tapan Corona MD [address] [facility] [address] PhysicianHematology/Oncology03/22/23 Naheed Elias PA-C [address] [facility] [place] [address] Physician AssistantHematology/Oncology03/22/23Team MemberRelationshipSpecialty Start DateEnd Date Charles Bazzi [address] [place], [place] [phone] PCP - GeneralFamily Medicine03/16/23 Colleen Solorio RN [address] [facility] [address] [place], [facility] Specialty Care CoordinatorHematology/Oncology03/22/23 Tapan Corona MD [address] [facility] [place] [address] PhysicianHematology/Oncology03/22/23 Naheed Elias PA-C [address] [facility] [place] [address] Physician AssistantHematology/Oncology03/22/23Team MemberRelationshipSpecialty Start DateEnd Date Charles Bazzi [address] [place] [phone] PCP - GeneralFamily Medicine03/16/23 Colleen Solorio RN [address] [facility] [address] Specialty Care CoordinatorHematology/Oncology03/22/23 Tapan Corona MD [address] [facility] [place] [address] PhysicianHematology/Oncology03/22/23 aNheed Elias PA-C [address] [place] [address] Physician AssistantHematology/Oncology03/22/23Team MemberRelationshipSpecialty Start DateEnd Date Charles Bazzi [address] [place] [address] PCP - GeneralFamily Medicine03/16/23 Colleen Solorio RN [address] [facility] [place] [address] Specialty Care CoordinatorHematology/Oncology03/22/23 Tapan Corona MD [address] [facility] [place] [address] PhysicianHematology/Oncology03/22/23 Naheed Elias PA-C [address] [facility] [place] [address] Physician AssistantHematology/Oncology03/22/23Team MemberRelationshipSpecialty Start DateEnd Date Charles Bazzi [address] [place] [phone] PCP - GeneralFamily Medicine03/16/23 Colleen Solorio, RN [address] [facility] [address] Specialty Care CoordinatorHematology/Oncology03/22/23 Tapan Corona MD [address] [facility] [place] [address] PhysicianHematology/Oncology03/22/23 Naheed Elias PA-C [address] [place] [address] [place] [address] Physician AssistantHematology/Oncology03/22/23Team MemberRelationshipSpecialty Start DateEnd [facility] Charles Bazzi [address] [place] [phone] PCP - GeneralFamily Medicine03/16/23 Colleen Solorio RN [address] [place] [address] [place] [address] Specialty Care CoordinatorHematology/Oncology03/22/23 Tapan Corona MD [address] [place] [address] [place] [phone] PhysicianHematology/Oncology03/22/23 Naheed Elias PA-C [address] [place] [address] [place] [address] Physician AssistantHematology/Oncology03/22/23 Team Status: Inactive Member Role Status Seda Bazzi DO Primary Care Provider Active Ellen Lehmanending ProviderActive Team Status: Active Member Role Status Seda Bazzi DO Primary Care Provider Active Damien Avendaño ProviderActiveMichael Friweis , DOAdmit Provider, Attending ProviderActive Team Status: Inactive Member Role Status Seda Bazzi DO Primary Care Provider Active Damien Avendaño ProviderActiveMichael Frings , DOAdmit Provider ActiveAggie Harmno RNOther ProviderActiveW Michael Stokes DOOther ProviderActiveTroy Tabares MDOther ProviderActiveDavid Espinosa MDOther ProviderActiveModestiney Rios MDOther ProviderActiveBlas Villagomez MDOther ProviderActiveDonna Delvis Saucedo , APRNOther Provider Zenon Mora MDOther ProviderActiveMohammed Beth Campos MDOther ProviderActiveKandace Shah MDOther ProviderActiveCarol Ranjit Orozco , PYRIDINE OPERATOR-BCOther ProviderActiveWendy Ocasio MDOther ProviderActiveFirmelisa Negron MDAttending ProviderActiveTapan Corona MDOther ProviderActiveTeam MemberRelationship SpecialtyStart DateEnd Date Charles Bazzi [address] [place] [phone] PCP - GeneralFamily Medicine03/16/23 Colleen Solorio RN [address] [facility] [place] [address] Specialty Care CoordinatorHematology/Oncology03/22/23 Tapan Corona MD [address] [place], [place] [address] PhysicianHematology/Oncology03/22/23 Naheed Elias PA-C [address] [place] [address] [place] [address] Physician AssistantHematology/Oncology03/22/23Team MemberRelationshipSpecialty Start DateEnd Date Charles Bazzi [address] [place], [place] [phone] PCP - GeneralFamily Medicine03/16/23 Colleen Solorio RN [address] [facility] [place] [address] Specialty Care CoordinatorHematology/Oncology03/22/23 Tapan Corona MD [address] [place] [address] [place] [address] PhysicianHematology/Oncology03/22/23 Naheed Elias PA-C [address] [facility] [place] [address] Physician AssistantHematology/Oncology03/22/23Team MemberRelationshipSpecialty Start DateEnd Date Charles Bazzi [address] [place], [place] [phone] PCP - Generalmily Medicine03/16/23 Colleen Solorio RN [address] [facility] [place] [address] Specialty Care CoordinatorHematology/Oncology03/22/23 Tapan Corona MD [address] [facility] [place] [address] PhysicianHematology/Oncology03/22/23 Naheed Elias PA-C [address] [facility] [place] [address] Physician AssistantHematology/Oncology03/22/23Team MemberRelationshipSpecialty Start DateEnd Date Charles Bazzi [address] [place], [place] [phone] PCP - GeneralFamily Medicine03/16/23 Colleen Solorio RN [address] [facility] [place] [place] [address] Specialty Care CoordinatorHematology/Oncology03/22/23 Tapan Corona MD [address] [facility] [place] [address] PhysicianHematology/Oncology03/22/23 Naheed Elias PA-C [address] [facility] [address] Physician AssistantHematology/Oncology03/22/23Team MemberRelationshipSpecialty Start DateEnd Date Charles Bazzi [address] [place], [place] [phone] PCP - GeneralFamily Medicine03/16/23 Colleen Solorio RN [address] [facility] [address] Specialty Care CoordinatorHematology/Oncology03/22/23 Tapan Corona MD [address] [facility] [place] [address] PhysicianHematology/Oncology03/22/23 Naheed Elias PA-C [address] [place], [place] [address] [facility] [address] [place] [phone] Physician AssistantHematology/Oncology03/22/23Team MemberRelationshipSpecialty Start DateEnd Date Charles Bazzi [address] [place], [place] [phone] PCP - GeneralFamily Medicine03/16/23 Colleen Solorio RN [address] [facility] [place] [address] Specialty Care CoordinatorHematology/Oncology03/22/23 Tapan Corona MD [address] [facility] [place] [address] PhysicianHematology/Oncology03/22/23 Naheed Elias PA-C [address] [facility] [address] Physician AssistantHematology/Oncology03/22/23Team MemberRelationshipSpecialty Start DateEnd Date Charles Bazzi [address] [place], [place] [phone] PCP - GeneralFamily Medicine03/16/23 Colleen Solorio RN [address] [facility] [address] Specialty Care CoordinatorHematology/Oncology03/22/23 Tapan Corona MD [address] [facility] [place] [address] PhysicianHematology/Oncology03/22/23 Naheed Elias PA-C [address] [facility] [place] [address] Physician AssistantHematology/Oncology03/22/23Te MemberRelationshipSpecialty Start DateEnd Date Charles Bazzi [address] [place], [place] [phone] PCP - Generalmily Medicine03/16/23 Colleen Solorio RN [address] [facility] [place] [address] Specialty Care CoordinatorHematology/Oncology03/22/23 Tapan Corona MD [address] [facility] [place] [address] PhysicianHematology/Oncology03/22/23 Naheed Elias PA-C [address] [facility] [place] [address] Physician AssistantHematology/Oncology03/22/23Team MemberRelationshipSpecialty Start DateEnd Date Charles Bazzi [address] [place] [address] PCP - GeneralFamily Medicine03/16/23 Colleen Solorio, RN [address] [facility] [address] Specialty Care CoordinatorHematology/Oncology03/22/23 Tapan Corona MD [address] [facility] [place] [address] PhysicianHematology/Oncology03/22/23 Naheed Elias PA-C [address] [facility] [place] [address] Physician AssistantHematology/Oncology03/22/23Team MemberRelationshipSpecialty Start DateEnd Date Charles Bazzi [address] [place] [phone] PCP - GeneralFamily Medicine03/16/23 Colleen Solorio RN [address] [facility] [address] Specialty Care CoordinatorHematology/Oncology03/22/23 Tapan Corona MD [address] [facility] [place] [address] PhysicianHematology/Oncology03/22/23 Naheed Elias PA-C [address] [facility] [place] [address] Physician AssistantHematology/Oncology03/22/23Team MemberRelationshipSpecialty Start DateEnd Date Charles Bazzi [address] [place] [address] PCP - GeneralFamily Medicine03/16/23Team MemberRelationshipSpecialtyStart DateEnd Date Charles Bazzi [address] [place] [phone] PCP - GeneralFamily Medicine03/16/23 Colleen Solorio RN [address] [place] [address] Specialty Care CoordinatorHematology/Oncology03/22/23 Tapan Corona MD [address] [facility] [place] [address] PhysicianHematology/Oncology03/22/23 Naheed Elias PA-C [address] [facility] [address] [place], [facility] Physician AssistantHematology/Oncology03/22/23Team MemberRelationshipSpecialty Start DateEnd Date Charles Bazzi [address] [place], [place] [phone] PCP - GeneralFamily Medicine03/16/23 Colleen Solorio RN [address] [facility] [place] [address] Specialty Care CoordinatorHematology/Oncology03/22/23 Tapan Corona MD [address] [facility] [place] [address] PhysicianHematology/Oncology03/22/23 Naheed Elias PA-C [address] [facility] [place] [address] Physician AssistantHematology/Oncology03/22/23Team MemberRelationshipSpecialty Start DateEnd Date Charles Bazzi [address] [place] [address] PCP - GeneralFamily Medicine03/16/23 Colleen Solorio RN [address] [facility] [place] [address] Specialty Care CoordinatorHematology/Oncology03/22/23 Tapan Corona MD [address] [facility] [place] [address] PhysicianHematology/Oncology03/22/23 Naheed Elias PA-C [address] [facility] [place] [address] Physician AssistantHematology/Oncology03/22/23Te MemberRelationshipSpecialty Start DateEnd Date Charles Bazzi [address] [place] [address] PCP - Generalmily Medicine03/16/23 Colleen Solorio RN [address] [facility] [place] [address] Specialty Care CoordinatorHematology/Oncology03/22/23 Tapan Corona MD [address] [facility] [place] [address] PhysicianHematology/Oncology03/22/23 Naheed Elias PA-C [address] [facility] [place] [place] [address] Physician AssistantHematology/Oncology03/22/23Te MemberRelationshipSpecialty Start DateEnd Date Charles Bazzi [address] [place], [place] [phone] PCP - GeneralFamily Medicine03/16/23 Colleen Solorio RN [address] [facility] [place] [address] Specialty Care CoordinatorHematology/Oncology03/22/23 Tapan Corona MD 417 [facility] [place] [phone] PhysicianHematology/Oncology03/22/23 Naheed Elias PA-C [address] [place] [address] [place] [address] Physician AssistantHematology/Oncology03/22/23Team MemberRelationshipSpecialty Start DateEnd Date Charles Bazzi [address] [place], [place] [phone] PCP - GeneralFamily Medicine03/16/23 Colleen Solorio RN [address] [facility] [address] [place], [facility] Specialty Care CoordinatorHematology/Oncology03/22/23 Tapan Corona MD 417 [facility] [place] [phone] PhysicianHematology/Oncology03/22/23 Naheed Elias PA-C [address] [place] [address] [place] [address] Physician AssistantHematology/Oncology03/22/23Team MemberRelationshipSpecialty Start DateEnd Date Charles Bazzi [address] [place] [phone] PCP - GeneralFamily Medicine03/16/23 Colleen Solorio RN [address] [facility] [place] [address] Specialty Care CoordinatorHematology/Oncology03/22/23 [address] MD [address] [facility] [place] [address] PhysicianHematology/Oncology03/22/23 Naheed Elias PA-C [address] [facility] [place] [address] Physician AssistantHematology/Oncology03/22/23 Team Status: Inactive Member Role Status Dates Charles Bazzi DO Primary Care Provider Active Ellen Norrispending sale to [facility] ProviderActiveTeam MemberRelationshipSpecialtyStart DateEnd Date Charles Bazzi DO PCP - General10/05/22Team MemberRelationshipSpecialtyStart DateEnd Date Charles Bazzi [address] [place] [phone] PCP - GeneralFamily Medicine03/16/23 Colleen Solorio RN [address] [facility] [place] [address] Specialty Care CoordinatorHematology/Oncology03/22/23 [address] MD [address] [facility] [place] [address] PhysicianHematology/Oncology03/22/23 Naheed Elias PA-C [address] [facility] [place] [address] Physician AssistantHematology/Oncology03/22/23 Maryuri Rodriguez, [facility] Social Worker07/21/23Team MemberRelationshipSpecialtyStart DateEnd Date Charles Bazzi [address] [place], [place] [phone] PCP - GeneralFamily Medicine03/16/23 Colleen Solorio RN [address] [facility] [address] [place] [phone] Specialty Care CoordinatorHematology/Oncology03/22/23 Tapan Corona MD [address] [facility] [place] [phone] PhysicianHematology/Oncology03/22/23 Naheed Elias PA-C [address] [facility] [address] [place] [phone] Physician AssistantHematology/Oncology03/22/23 Maryuri Rodriguez, [facility] Social Worker07/21/23Team MemberRelationshipSpecialtyStart DateEnd Date Charles Bazzi [address] [place], [place] [phone] PCP - GeneralFamily Medicine03/16/23 Colleen Solorio RN [address] [facility] [place] [address] Specialty Care CoordinatorHematology/Oncology03/22/23 Tapan Corona MD [address] [facility] [place] [address] PhysicianHematology/Oncology03/22/23 Naheed Elias PA-C [address] [facility] [place] [address] Physician AssistantHematology/Oncology03/22/23 Maryuri Rodriguez, [facility] Social Worker07/21/23Team MemberRelationshipSpecialtyStart DateEnd Date Charles Bazzi [address] [place], [place] [phone] PCP - GeneralFamily Medicine03/16/23 Colleen Solorio RN [address] [facility] [address] [place], [facility] Specialty Care CoordinatorHematology/Oncology03/22/23 Tapan Corona MD [address] [facility] [place] [phone] PhysicianHematology/Oncology03/22/23 aNheed Elias PA-C [address] [facility] [address] [place], [facility] Physician AssistantHematology/Oncology03/22/23 Maryuri Rodriguez, [facility] Social Worker07/21/23Team MemberRelationshipSpecialtyStart DateEnd Date Charles Bazzi [address] [place], [place] [phone] PCP - GeneralFamily Medicine03/16/23 Colleen Solorio RN [address] [facility] [address] Specialty Care CoordinatorHematology/Oncology03/22/23 Tapan Corona MD [address] [facility] [place] [address] PhysicianHematology/Oncology03/22/23 Naheed Elias PA-C [address] [facility] [place] [address] Physician AssistantHematology/Oncology03/22/23 Maryuri Rodriguez, [facility] Social Worker07/21/23Team MemberRelationshipSpecialtyStart DateEnd Date Charles Bazzi [address] [place], [place] [phone] PCP - GeneralFamily Medicine03/16/23 Colleen Solorio RN [address] [facility] [address] [place] [phone] Specialty Care CoordinatorHematology/Oncology03/22/23 Tapan Corona MD [address] [place] [address] [place] [phone] PhysicianHematology/Oncology03/22/23 Naheed Elias PA-C [address] [place] [address] [address] [place] [phone] Physician AssistantHematology/Oncology03/22/23 Maryuri Rodriguez, [facility] Social Worker07/21/23Team MemberRelationshipSpecialtyStart DateEnd Date Charles Bazzi [address] [place], [place] [phone] PCP - GeneralFamily Medicine03/16/23 Colleen Solorio RN [address] [facility] [place] [address] Specialty Care CoordinatorHematology/Oncology03/22/23 Tapan Corona MD 417 [facility] [place] [address] PhysicianHematology/Oncology03/22/23 Naheed Elias PA-C [address] [facility] [place] [address] Physician AssistantHematology/Oncology03/22/23 Maryuri Rodriguez LSW Social Worker07/21/23 Team Status: Inactive Member Role Status Dates Charles Bazzi DO Primary Care Provider Active Sta rt: September 30, 2023 End: October 01, 2023Blaise Starks ProviderActiveStart: September 30, 2023 End: October 01, 2023Violet Parnell ProviderActiveStart: September 30, 2023 End: October 01, 2023Ellen Samending ProviderActiveStart: September 30, 2023 End: September 30Dina Garcia ProviderActiveStart: September 30, 2023 End: October 01, 2023 Team Status: Active Member Role Status Dates Charles Bazzi DO Primary Care Provider Active Sta rt: September 30, 2023 Blaise Starks ProviderActiveStart: September 30, 2023 Violet Parnell Provider, Attending Provider, Other ProviderActive Start: September 30, 2023 Team MemberRelationshipSpecialtyStart DateEnd Date Charles Bazzi [address] [place] [phone] [facility] - [facility]03/16/23 Colleen Solorio RN [address] [place] [address] [place] [address] Specialty Care CoordinatorHematology/Oncology03/22/23 Tapan Corona MD [address] [place] [address] [place] [address] PhysicianHematology/Oncology03/22/23 Naheed Elias, PADesireeC [address] [place] [address] [place] [address] Physician AssistantHematology/Oncology03/22/23 Maryuri Rodriguez LSW Social Worker07/21/23Team MemberRelationshipSpecialtyStart DateEnd Date Charles Bazzi [address] [place] [phone] [facility] - [facility]/16/23 Colleen Solorio RN [address] [facility] [place] [address] Specialty Care CoordinatorHematology/Oncology03/22/23 Tapan Corona MD 417 [facility] [place] [address] PhysicianHematology/Oncology03/22/23 Naheed Elias PA-C [address] [facility] [place] [address] Physician AssistantHematology/Oncology03/22/23 Maryuri Rodriguez [facility] Social Worker07/21/23 Team Status: Active Member Role Status Dates Charles Bazzi DO Primary Care Provider Active Sta rt: September 30, 2023 End: October 01, 2023Blaise Starks ProviderActiveStart: September 30, 2023 End: October 01, 2023Violet Parnell Provider, Attending Provider, Other ProviderActiveStart: September 30, 2023 End: October 01, 2023 Team Status: Active Member Role Status Seda Bazzi DO Primary Care Provide r, Attending Provider Active Start: October 10, 2023 Team Status: Inactive Member Role Status Seda Bazzi DO Primary Care Provide r, Attending Provider Active Start: October 24, 2023 End: October 24, 2023 Team Status: Active Member Role Status Seda Bazzi DO Primary Care Provider Active Sta rt: October 26, 2023 Swapnil Gonzalescy ProviderActiveStart: October 26, 2023 Violet Peng Provider, Attending ProviderActiveStart: October 26, 2023 Team Status: Inactive Member Role Status Dates Charles Bazzi DO Primary Care Provider Active Sta rt: October 26, 2023 End: October 27Yair Chance ProviderActiveStart: October 26, 2023 End: October 27ndnancy Hooks , MDAdmit ProviderActiveStart: October 26, 2023 End: October 28, 2023Kenjinoemí Kimzachary , DOAttending ProviderActiveStart: October 26, 2023 End: October 27auranjit Eckert , DOOther ProviderActiveStart: October 26, 2023 End: October 28, 2023 Team Status: Active Member Role Status Dates Charles Bazzi DO Primary Care Provider Active Sta rt: October 26, 2023 Yair Gonzales ProviderActiveStart: October 26, 2023 Patrice Hooks , MDAdmit Provider, Other ProviderActiveStart: October 26, 2023 Eduar Kruger ProviderActiveStart: October 26, 2023 Team MemberRelationshipSpecialtyStart DateEnd Date Charles Bazzi [address] [place] [phone] PCP - [facility] Medicine03/16/23 Colleen Solorio RN [address] [place] [address] [place] [address] Specialty Care CoordinatorHematology/Oncology03/22/23 Tapan Corona MD [address] [place] [address] [place] [address] PhysicianHematology/Oncology03/22/23 Naheed Elias PA-C [address] [place] [address] [place] [address] Physician AssistantHematology/Oncology03/22/23 Maryuri Rodriguez LSW Social Worker07/21/23Team MemberRelationshipSpecialtyStart DateEnd Date Charles Bazzi [address] [place] [phone] PCP - GeneralFamily Medicine03/16/23 Colleen Solorio RN [address] [facility] [address] Specialty Care CoordinatorHematology/Oncology03/22/23 Tapan Corona MD 417 [facility] [place] [address] PhysicianHematology/Oncology03/22/23 Naheed Elias PA-C [address] [place] [address] [place] [address] Physician AssistantHematology/Oncology03/22/23 Maryuri Rodriguez LSW Social Worker07/21/23Team MemberRelationshipSpecialtyStart DateEnd Date Charles Bazzi [address] [place] [phone] PCP - Generalmily Medicine03/16/23 Colleen Solorio RN [address] [facility] [place] [address] Specialty Care CoordinatorHematology/Oncology03/22/23 Tapan Corona MD [address] [place] [address] [place] [address] PhysicianHematology/Oncology03/22/23 Naheed Elias PA-C [address] [place] [address] [place] [address] Physician AssistantHematology/Oncology03/22/23 Maryuri Rodriguez LSW Social Worker07/21/23Team MemberRelationshipSpecialtyStart DateEnd Date Charles Bazzi [address] [place] [phone] PCP - GeneralFamily Medicine03/16/23 Colleen Solorio RN [address] [facility] [place] [address] Specialty Care CoordinatorHematology/Oncology03/22/23 Tapan Corona MD [address] [place] [address] [place] [address] PhysicianHematology/Oncology03/22/23 Naheed Elias PA-C [address] [place] [address] [place] [address] Physician AssistantHematology/Oncology03/22/23 Maryuri Rodriguez LSW Social Worker07/21/23Team MemberRelationshipSpecialtyStart DateEnd Date Charles Bazzi [address] [place] [phone] [facility] - [facility]/16/23 Colleen Solorio RN [address] [facility] [place] [address] Specialty Care CoordinatorHematology/Oncology03/22/23 Tapan Corona MD [address] [place] [address] [place] [address] PhysicianHematology/Oncology03/22/23 Naheed Elias PA-C [address] [place] [address] [place] [address] Physician AssistantHematology/Oncology03/22/23 Maryuri Rodriguez LSW Social Worker07/21/23Team MemberRelationshipSpecialtyStart DateEnd Date Charles Bazzi [address] [place] [phone] PCP - GeneralFamily Medicine03/16/23 Colleen Solorio, RN [address] [facility] [place] [address] Specialty Care CoordinatorHematology/Oncology03/22/23 Tapan Corona MD 417 [facility] [place] [address] PhysicianHematology/Oncology03/22/23 Naheed Elias PA-C [address] [facility] [place] [address] Physician AssistantHematology/Oncology03/22/23 Maryuri Rodriguez, [employer] Social Worker07/21/23Team MemberRelationshipSpecialtyStart DateEnd Date Charles Bazzi [address] [place] [address] PCP - GeneralFamily Medicine03/16/23 Tapan Corona MD [address] [facility] [place] [address] PhysicianHematology/Oncology03/22/23 Naheed Elias PA-C [address] [facility] [place] [address] Physician AssistantHematology/Oncology03/22/23 Maryuri Rodriguez, [employer] Social Worker07/21/23Team MemberRelationshipSpecialtyStart DateEnd Date Charles Bazzi [address] [place] [address] PCP - GeneralFamily Medicine03/16/23 Colleen Solorio, RN [address] [facility] [place] [address] Specialty Care CoordinatorHematology/Oncology Tapan Corona MD [address] [facility] [place] [address] PhysicianHematology/Oncology03/22/23 Naheed Elias PA-C [address] [facility] [place] [address] Physician AssistantHematology/Oncology03/22/23Team MemberRelationshipSpecialty Start DateEnd Date Charles Bazzi [address] [place], [place] [phone] PCP - GeneralFamily Medicine03/16/23 Tapan Corona MD [address] [place] [address] PhysicianHematology/Oncology03/22/23 Naheed Elias PA-C [address] [facility] [place] [address] Physician AssistantHematology/Oncology03/22/23 Maryuri Rodriguez LSW Social Worker07/21/23Team MemberRelationshipSpecialtyStart DateEnd Date Charles Bazzi [address] [place] [phone] PCP - GeneralFamily Medicine03/16/23 Tapan Corona MD [address] [place] [address] PhysicianHematology/Oncology03/22/23 Naheed Elias PA-C [address] [place] [address] [place] [address] Physician AssistantHematology/Oncology03/22/23 Maryuri Rodriguez LSW Social Worker07/21/23 Team Status: Active Member Role Status Seda Bazzi DO Primary Care Provider Active Sta rt: April 30, 2024 Makeda Leyva ProviderActiveStart: April 30, 2024 Team Status: Active Member Role Status Seda Bazzi DO Primary Care Provider Active Sta rt: May 08, 2024 Raissa Arriaga ProviderActiveStart: May 08, 2024 Team Status: Inactive Member Role Status Seda Bazzi DO Primary Care Provider Active Sta rt: May 22, 2024 End: May 22, 2024Amaury Davies ProviderActiveStart: May 22, 2024 End: May 22, 2024 Team Status: Active Member Role Status Seda Bazzi DO Primary Care Provider Active Sta rt: May 30, 2024 Jorge A Haji DOAttgerardo ProviderActiveStart: May 30, 2024 Team MemberRelationshipSpecialtyStart DateEnd Date Charles Bazzi DO [facility] [place] [phone] [facility]12/13/22 Team Status: Active Member Role Status Seda Bazzi DO Primary Care Provider Active Sta rt: August 19, 2024 Raissa Arriaga ProviderActiveStart: August 19, 2024 Team Status: Inactive Member Role Status Seda Bazzi DO Primary Care Provider Active Sta rt: August 20, 2024 End: August 20Raissa Luna ProviderActiveStart: August 20, 2024 End: August 20, 2024 Team Status: Inactive Member Role Status Dates Charles Bazzi DO Primary Care Provider Active Sta rt: August 26, 2024 End: August 26Ellen Lunapending [facility] to [facility] ProviderActiveStart: August 26, 2024 End: August 26, 2024Team MemberRelationshipSpecialtyStart DateEnd Date Charles Bazzi [address] [place], [place] [phone] PCP - GeneralFamily Medicine03/16/23 Tapan Corona MD [address] [place] [address] PhysicianHematology/Oncology03/22/23 Naheed Elias PADesireeC [address] [place] [address] [place] [address] Physician AssistantHematology/Oncology03/22/23 Maryuri Rodriguez, [employer]ACH[employer] Social Worker07/21/23Team MemberRelationshipSpecialtyStart DateEnd Date Charles Bazzi [address] [place], [place] [phone] PCP - Generalmily Medicine03/16/23 Tapan Corona MD [address] [place], [place] [address] PhysicianHematology/Oncology03/22/23 Naheed Elias PA-C [address] [place] [address] [place] [address] Physician AssistantHematology/Oncology03/22/23 Maryuri Rodriguez, MACH[employer] Social Worker07/21/23 Team Status: Active Member Role Status Dates Charles Bazzi DO Primary Care Provider Active Sta rt: August 26, 2024 Ellen Lambertending Provider, Other ProviderActiveStart: August 26, 2024 Team Status: Inactive Member Role Status Dates Charles Bazzi DO Primary Care Provider Active Sta rt: September 04, 2024 End: September 04ollEllen Bonillaending ProviderActiveStart: September 04, 2024 End: September 04, 2024 Team Status: Inactive Member Role Status Dates Charles Bazzi DO Primary Care Provide r, Attending Provider Active Start: September 09, 2024 End: September 09, 2024 Team Status: Inactive Member Role Status Dates Charles Bazzi DO Primary Care Provider Active Sta rt: September 18, 2024 End: September 18, 2024Ellen Lehmanending ProviderActiveStart: September 18, 2024 End: September 18, 2024 Team Status: Active Member Role Status Seda Bazzi DO Primary Care Provider Active Sta rt: September 18, 2024 Imhank Greene , Ellenending Provider, Other ProviderActiveStart: September 18, 2024 Team Status: Active Member Role Status Seda Bazzi DO Primary Care Provider Active Sta rt: September 27, 2024 Ellen Lambertending ProviderActiveStart: September 27, 2024 Team Status: Inactive Member Role Status Seda Bazzi DO Primary Care Provider Active Sta rt: September 27, 2024 End: September 27ollEllen Bonillaending ProviderActiveStart: September 27, 2024 End: September 27, 2024 Team Status: Active Member Role Status Seda Bazzi DO Primary Care Provider Active Sta rt: October 18, 2024 Ellen Lambertending ProviderActiveStart: October 18, 2024 Team Status: Inactive Member Role Status Seda Bazzi DO Primary Care Provider Active Sta rt: October 18, 2024 End: October 18Ellen Lunaending ProviderActiveStart: October 18, 2024 End: October 18, 2024Team MemberRelationshipSpecialtyStart DateEnd Charles Haas [address] [place] [phone] PCP - GeneralFamily Medicine03/16/23 Tapan Corona MD [address] [facility] [place] [address] PhysicianHematology/Oncology03/22/23 Naheed Elias PA-C [address] [facility] [address] [place], [facility] Physician AssistantHematology/Oncology03/22/23 Maryuri Rodriguez, [facility] Social Worker07/21/23Team MemberRelationshipSpecialtyStart DateEnd Date Charles Bazzi [address] [place], [place] [phone] PCP - GeneralFamily Medicine03/16/23 Tapan Corona MD [address] [facility] [place] [id number] PhysicianHematology/Oncology03/22/23 Naheed Elias PA-C [address] [facility] [address] [place], [facility] Physician AssistantHematology/Oncology03/22/23 Maryuri Rodriguez, [facility] Social Worker07/21/23Team MemberRelationshipSpecialtyStart DateEnd Date Charles Bazzi [address] [place], [place] [phone] PCP - GeneralFamily Medicine03/16/23 Tapan Corona MD [address] [facility] [place] [address] PhysicianHematology/Oncology03/22/23 Naheed Elias PA-C [address] [facility] [place] [address] Physician AssistantHematology/Oncology03/22/23 Maryuri Rodriguez, [employer]ACH[employer] Social Worker07/21/23Team MemberRelationshipSpecialtyStart DateEnd Date Charles Bazzi [address] [place], [place] [phone] PCP - GeneralFamily Medicine03/16/23 Tapan Corona MD [address] [facility] [place] [phone] PhysicianHematology/Oncology03/22/23 Naheed Elias PA-C [address] [facility] [address] [place], [facility] Physician AssistantHematology/Oncology03/22/23 Maryuri Rodriguez, [facility] Social Worker07/21/23Team MemberRelationshipSpecialtyStart DateEnd Date Charles Bazzi [address] [place], [place] [phone] PCP - GeneralFamily Medicine03/16/23 Tapan Corona MD [address] [facility] [place] [id number] PhysicianHematology/Oncology03/22/23 Naheed Elias PA-C [address] [facility] [address] Physician AssistantHematology/Oncology03/22/23 Maryuri Rodriguez, [employer]ACH[employer] Social Worker07/21/23Team MemberRelationshipSpecialtyStart DateEnd Date Charles Bazzi [address] [place] [phone] PCP - GeneralFamily Medicine03/16/23 Tapan Corona MD [address] [facility] [place] [address] PhysicianHematology/Oncology03/22/23 Naheed Elias, HAILEC [address] [facility] [place] [address] Physician AssistantHematology/Oncology03/22/23 Maryuri Rodriguez, [facility] Social Worker07/21/23Team MemberRelationshipSpecialtyStart DateEnd Date Charles Bazzi [address] [place] [phone] PCP - GeneralFamily Medicine03/16/23 Tapan Corona MD [address] [facility] [place] [id number] PhysicianHematology/Oncology03/22/23 Naheed Elias PA-C [address] [facility] [address] [place], [facility] Physician AssistantHematology/Oncology03/22/23 Maryuri Rodriguez, [facility] Social Worker07/21/23Team MemberRelationshipSpecialtyStart DateEnd Date Charles Bazzi [address] [place] [phone] PCP - GeneralFamily Medicine03/16/23 Tapan Corona MD [address] [facility] [place] [address] PhysicianHematology/Oncology03/22/23 Naheed Elias PA-C [address] [place] [address] [place] [address] Physician AssistantHematology/Oncology03/22/23 Maryuri Rodriguez LSW Social Worker07/21/23Team MemberRelationshipSpecialtyStart DateEnd Date Charles Bazzi DO PCP - General12/13/22Team MemberRelationshipSpecialtyStart DateEnd Date Charles Bazzi [address] [place] [phone] PCP - GeneralFamily Medicine03/16/23 Tapan Corona MD [address] [facility] [place] [address] PhysicianHematology/Oncology03/22/23 Naheed Elias PA-C [address] [facility] [place] [address] Physician AssistantHematology/Oncology03/22/23 Maryuri Rodriguez LSW Social Worker07/21/23Team MemberRelationshipSpecialtyStart DateEnd Date Charles Bazzi DO PCP - General12/13/22 Goals (unrecognized section and content) Goals may be documented in a n alternate section Source Comments (unrecognize d section and content) In the event this informatio n is protected by the Federal Confidentiality of Alcohol and Drug Abuse Patient Records regulations: The Federal rules restrict any use of the information to criminally investigate or prosecute any alcohol or drug abuse patient.[facility] HospitalIn the event this information is protected by the Federal Confidentiality of Alcohol and Drug Abuse Patient Records regulations: The Federal rules restrict any use of the information to criminally investigate or prosecute any alcohol or drug abuse patient.[facility] HospitalIn the event this information is protected by the Federal Confidentiality of Alcohol and Drug Abuse Patient Records regulations: The Federal rules restrict any use of the information to criminally investigate or prosecute any alcohol or drug abuse patient.[facility] HospitalIn the event this information is protected by the Federal Confidentiality of Alcohol and Drug Abuse Patient Records regulations: The Federal rules restrict any use of the information to criminally investigate or prosecute any alcohol or drug abuse patient.[facility] HospitalIn the event this information is protected by the Federal Confidentiality of Alcohol and Drug Abuse Patient Records regulations: The Federal rules restrict any use of the information to criminally investigate or prosecute any alcohol or drug abuse patient.[facility] HospitalIn the event this information is protected by the Federal Confidentiality of Alcohol and Drug Abuse Patient Records regulations: The Federal rules restrict any use of the information to criminally investigate or prosecute any alcohol or drug abuse patient.[facility] HospitalIn the event this information is protected by the Federal Confidentiality of Alcohol and Drug Abuse Patient Records regulations: The Federal rules restrict any use of the information to criminally investigate or prosecute any alcohol or drug abuse patient.[facility] HospitalIn the event this information is protected by the Federal Confidentiality of Alcohol and Drug Abuse Patient Records regulations: The Federal rules restrict any use of the information to criminally investigate or prosecute any alcohol or drug abuse patient.[facility] HospitalIn the event this information is protected by the Federal Confidentiality of Alcohol and Drug Abuse Patient Records regulations: The Federal rules restrict any use of the information to criminally investigate or prosecute any alcohol or drug abuse patient.[facility] HospitalIn the event this information is protected by the Federal Confidentiality of Alcohol and Drug Abuse Patient Records regulations: The Federal rules restrict any use of the information to criminally investigate or prosecute any alcohol or drug abuse patient.[facility] HospitalIn the event this information is protected by the Federal Confidentiality of Alcohol and Drug Abuse Patient Records regulations: The Federal rules restrict any use of the information to criminally investigate or prosecute any alcohol or drug abuse patient.[facility] HospitalIn the event this information is protected by the Federal Confidentiality of Alcohol and Drug Abuse Patient Records regulations: The Federal rules restrict any use of the information to criminally investigate or prosecute any alcohol or drug abuse patient.[facility] HospitalIn the event this information is protected by the Federal Confidentiality of Alcohol and Drug Abuse Patient Records regulations: The Federal rules restrict any use of the information to criminally investigate or prosecute any alcohol or drug abuse patient.[facility] HospitalIn the event this information is protected by the Federal Confidentiality of Alcohol and Drug Abuse Patient Records regulations: The Federal rules restrict any use of the information to criminally investigate or prosecute any alcohol or drug abuse patient.[facility] HospitalIn the event this information is protected by the Federal Confidentiality of Alcohol and Drug Abuse Patient Records regulations: The Federal rules restrict any use of the information to criminally investigate or prosecute any alcohol or drug abuse patient.[facility] HospitalIn the event this information is protected by the Federal Confidentiality of Alcohol and Drug Abuse Patient Records regulations: The Federal rules restrict any use of the information to criminally investigate or prosecute any alcohol or drug abuse patient.[facility] HospitalIn the event this information is protected by the Federal Confidentiality of Alcohol and Drug Abuse Patient Records regulations: The Federal rules restrict any use of the information to criminally investigate or prosecute any alcohol or drug abuse patient.[facility] HospitalIn the event this information is protected by the Federal Confidentiality of Alcohol and Drug Abuse Patient Records regulations: The Federal rules restrict any use of the information to criminally investigate or prosecute any alcohol or drug abuse patient.[facility] HospitalIn the event this information is protected by the Federal Confidentiality of Alcohol and Drug Abuse Patient Records regulations: The Federal rules restrict any use of the information to criminally investigate or prosecute any alcohol or drug abuse patient.[facility] HospitalIn the event this information is protected by the Federal Confidentiality of Alcohol and Drug Abuse Patient Records regulations: The Federal rules restrict any use of the information to criminally investigate or prosecute any alcohol or drug abuse patient.[facility] HospitalIn the event this information is protected by the Federal Confidentiality of Alcohol and Drug Abuse Patient Records regulations: The Federal rules restrict any use of the information to criminally investigate or prosecute any alcohol or drug abuse patient.[facility] HospitalIn the event this information is protected by the Federal Confidentiality of Alcohol and Drug Abuse Patient Records regulations: The Federal rules restrict any use of the information to criminally investigate or prosecute any alcohol or drug abuse patient.[facility] HospitalIn the event this information is protected by the Federal Confidentiality of Alcohol and Drug Abuse Patient Records regulations: The Federal rules restrict any use of the information to criminally investigate or prosecute any alcohol or drug abuse patient.[facility] HospitalIn the event this information is protected by the Federal Confidentiality of Alcohol and Drug Abuse Patient Records regulations: The Federal rules restrict any use of the information to criminally investigate or prosecute any alcohol or drug abuse patient.[facility] HospitalIn the event this information is protected by the Federal Confidentiality of Alcohol and Drug Abuse Patient Records regulations: The Federal rules restrict any use of the information to criminally investigate or prosecute any alcohol or drug abuse patient.[facility] HospitalIn the event this information is protected by the Federal Confidentiality of Alcohol and Drug Abuse Patient Records regulations: The Federal rules restrict any use of the information to criminally investigate or prosecute any alcohol or drug abuse patient.[facility] HospitalIn the event this information is protected by the Federal Confidentiality of Alcohol and Drug Abuse Patient Records regulations: The Federal rules restrict any use of the information to criminally investigate or prosecute any alcohol or drug abuse patient.[facility] HospitalIn the event this information is protected by the Federal Confidentiality of Alcohol and Drug Abuse Patient Records regulations: The Federal rules restrict any use of the information to criminally investigate or prosecute any alcohol or drug abuse patient.[facility] HospitalIn the event this information is protected by the Federal Confidentiality of Alcohol and Drug Abuse Patient Records regulations: The Federal rules restrict any use of the information to criminally investigate or prosecute any alcohol or drug abuse patient.[facility] HospitalIn the event this information is protected by the Federal Confidentiality of Alcohol and Drug Abuse Patient Records regulations: The Federal rules restrict any use of the information to criminally investigate or prosecute any alcohol or drug abuse patient.[facility] HospitalIn the event this information is protected by the Federal Confidentiality of Alcohol and Drug Abuse Patient Records regulations: The Federal rules restrict any use of the information to criminally investigate or prosecute any alcohol or drug abuse patient.[facility] HospitalIn the event this information is protected by the Federal Confidentiality of Alcohol and Drug Abuse Patient Records regulations: The Federal rules restrict any use of the information to criminally investigate or prosecute any alcohol or drug abuse patient.[facility] HospitalIn the event this information is protected by the Federal Confidentiality of Alcohol and Drug Abuse Patient Records regulations: The Federal rules restrict any use of the information to criminally investigate or prosecute any alcohol or drug abuse patient.[facility] HospitalIn the event this information is protected by the Federal Confidentiality of Alcohol and Drug Abuse Patient Records regulations: The Federal rules restrict any use of the information to criminally investigate or prosecute any alcohol or drug abuse patient.[facility] HospitalIn the event this information is protected by the Federal Confidentiality of Alcohol and Drug Abuse Patient Records regulations: The Federal rules restrict any use of the information to criminally investigate or prosecute any alcohol or drug abuse patient.[facility] HospitalIn the event this information is protected by the Federal Confidentiality of Alcohol and Drug Abuse Patient Records regulations: The Federal rules restrict any use of the information to criminally investigate or prosecute any alcohol or drug abuse patient.[facility] HospitalIn the event this information is protected by the Federal Confidentiality of Alcohol and Drug Abuse Patient Records regulations: The Federal rules restrict any use of the information to criminally investigate or prosecute any alcohol or drug abuse patient.[facility] HospitalIn the event this information is protected by the Federal Confidentiality of Alcohol and Drug Abuse Patient Records regulations: The Federal rules restrict any use of the information to criminally investigate or prosecute any alcohol or drug abuse patient.[facility] HospitalIn the event this information is protected by the Federal Confidentiality of Alcohol and Drug Abuse Patient Records regulations: The Federal rules restrict any use of the information to criminally investigate or prosecute any alcohol or drug abuse patient.[facility] HospitalIn the event this information is protected by the Federal Confidentiality of Alcohol and Drug Abuse Patient Records regulations: The Federal rules restrict any use of the information to criminally investigate or prosecute any alcohol or drug abuse patient.[facility] HospitalIn the event this information is protected by the Federal Confidentiality of Alcohol and Drug Abuse Patient Records regulations: The Federal rules restrict any use of the information to criminally investigate or prosecute any alcohol or drug abuse patient.[facility] HospitalIn the event this information is protected by the Federal Confidentiality of Alcohol and Drug Abuse Patient Records regulations: The Federal rules restrict any use of the information to criminally investigate or prosecute any alcohol or drug abuse patient.[facility] HospitalIn the event this information is protected by the Federal Confidentiality of Alcohol and Drug Abuse Patient Records regulations: The Federal rules restrict any use of the information to criminally investigate or prosecute any alcohol or drug abuse patient.[facility] HospitalIn the event this information is protected by the Federal Confidentiality of Alcohol and Drug Abuse Patient Records regulations: The Federal rules restrict any use of the information to criminally investigate or prosecute any alcohol or drug abuse patient.[facility] HospitalIn the event this information is protected by the Federal Confidentiality of Alcohol and Drug Abuse Patient Records regulations: The Federal rules restrict any use of the information to criminally investigate or prosecute any alcohol or drug abuse patient.[facility] HospitalIn the event this information is protected by the Federal Confidentiality of Alcohol and Drug Abuse Patient Records regulations: The Federal rules restrict any use of the information to criminally investigate or prosecute any alcohol or drug abuse patient.[facility] HospitalIn the event this information is protected by the Federal Confidentiality of Alcohol and Drug Abuse Patient Records regulations: The Federal rules restrict any use of the information to criminally investigate or prosecute any alcohol or drug abuse patient.[facility] HospitalIn the event this information is protected by the Federal Confidentiality of Alcohol and Drug Abuse Patient Records regulations: The Federal rules restrict any use of the information to criminally investigate or prosecute any alcohol or drug abuse patient.[facility] HospitalIn the event this information is protected by the Federal Confidentiality of Alcohol and Drug Abuse Patient Records regulations: The Federal rules restrict any use of the information to criminally investigate or prosecute any alcohol or drug abuse patient.[facility] HospitalIn the event this information is protected by the Federal Confidentiality of Alcohol and Drug Abuse Patient Records regulations: The Federal rules restrict any use of the information to criminally investigate or prosecute any alcohol or drug abuse patient.[facility] HospitalIn the event this information is protected by the Federal Confidentiality of Alcohol and Drug Abuse Patient Records regulations: The Federal rules restrict any use of the information to criminally investigate or prosecute any alcohol or drug abuse patient.[facility] HospitalIn the event this information is protected by the Federal Confidentiality of Alcohol and Drug Abuse Patient Records regulations: The Federal rules restrict any use of the information to criminally investigate or prosecute any alcohol or drug abuse patient.[facility] HospitalIn the event this information is protected by the Federal Confidentiality of Alcohol and Drug Abuse Patient Records regulations: The Federal rules restrict any use of the information to criminally investigate or prosecute any alcohol or drug abuse patient.[facility] HospitalIn the event this information is protected by the Federal Confidentiality of Alcohol and Drug Abuse Patient Records regulations: The Federal rules restrict any use of the information to criminally investigate or prosecute any alcohol or drug abuse patient.[facility] HospitalIn the event this information is protected by the Federal Confidentiality of Alcohol and Drug Abuse Patient Records regulations: The Federal rules restrict any use of the information to criminally investigate or prosecute any alcohol or drug abuse patient.[facility] HospitalIn the event this information is protected by the Federal Confidentiality of Alcohol and Drug Abuse Patient Records regulations: The Federal rules restrict any use of the information to criminally investigate or prosecute any alcohol or drug abuse patient.[facility] HospitalIn the event this information is protected by the Federal Confidentiality of Alcohol and Drug Abuse Patient Records regulations: The Federal rules restrict any use of the information to criminally investigate or prosecute any alcohol or drug abuse patient.[facility] HospitalIn the event this information is protected by the Federal Confidentiality of Alcohol and Drug Abuse Patient Records regulations: The Federal rules restrict any use of the information to criminally investigate or prosecute any alcohol or drug abuse patient.[facility] HospitalIn the event this information is protected by the Federal Confidentiality of Alcohol and Drug Abuse Patient Records regulations: The Federal rules restrict any use of the information to criminally investigate or prosecute any alcohol or drug abuse patient.[facility] HospitalIn the event this information is protected by the Federal Confidentiality of Alcohol and Drug Abuse Patient Records regulations: The Federal rules restrict any use of the information to criminally investigate or prosecute any alcohol or drug abuse patient.[facility] HospitalIn the event this information is protected by the Federal Confidentiality of Alcohol and Drug Abuse Patient Records regulations: The Federal rules restrict any use of the information to criminally investigate or prosecute any alcohol or drug abuse patient.[facility] HospitalIn the event this information is protected by the Federal Confidentiality of Alcohol and Drug Abuse Patient Records regulations: The Federal rules restrict any use of the information to criminally investigate or prosecute any alcohol or drug abuse patient.[facility] HospitalIn the event this information is protected by the Federal Confidentiality of Alcohol and Drug Abuse Patient Records regulations: The Federal rules restrict any use of the information to criminally investigate or prosecute any alcohol or drug abuse patient.[facility] HospitalIn the event this information is protected by the Federal Confidentiality of Alcohol and Drug Abuse Patient Records regulations: The Federal rules restrict any use of the information to criminally investigate or prosecute any alcohol or drug abuse patient.[facility] HospitalIn the event this information is protected by the Federal Confidentiality of Alcohol and Drug Abuse Patient Records regulations: The Federal rules restrict any use of the information to criminally investigate or prosecute any alcohol or drug abuse patient.[facility] HospitalIn the event this information is protected by the Federal Confidentiality of Alcohol and Drug Abuse Patient Records regulations: The Federal rules restrict any use of the information to criminally investigate or prosecute any alcohol or drug abuse patient.[facility] HospitalIn the event this information is protected by the Federal Confidentiality of Alcohol and Drug Abuse Patient Records regulations: The Federal rules restrict any use of the information to criminally investigate or prosecute any alcohol or drug abuse patient.[facility] HospitalIn the event this information is protected by the Federal Confidentiality of Alcohol and Drug Abuse Patient Records regulations: The Federal rules restrict any use of the information to criminally investigate or prosecute any alcohol or drug abuse patient.[facility] HospitalIn the event this information is protected by the Federal Confidentiality of Alcohol and Drug Abuse Patient Records regulations: The Federal rules restrict any use of the information to criminally investigate or prosecute any alcohol or drug abuse patient.[facility] HospitalIn the event this information is protected by the Federal Confidentiality of Alcohol and Drug Abuse Patient Records regulations: The Federal rules restrict any use of the information to criminally investigate or prosecute any alcohol or drug abuse patient.[facility] HospitalIn the event this information is protected by the Federal Confidentiality of Alcohol and Drug Abuse Patient Records regulations: The Federal rules restrict any use of the information to criminally investigate or prosecute any alcohol or drug abuse patient.[facility] HospitalIn the event this information is protected by the Federal Confidentiality of Alcohol and Drug Abuse Patient Records regulations: The Federal rules restrict any use of the information to criminally investigate or prosecute any alcohol or drug abuse patient.[facility] HospitalIn the event this information is protected by the Federal Confidentiality of Alcohol and Drug Abuse Patient Records regulations: The Federal rules restrict any use of the information to criminally investigate or prosecute any alcohol or drug abuse patient.[facility] HospitalIn the event this information is protected by the Federal Confidentiality of Alcohol and Drug Abuse Patient Records regulations: The Federal rules restrict any use of the information to criminally investigate or prosecute any alcohol or drug abuse patient.[facility] HospitalIn the event this information is protected by the Federal Confidentiality of Alcohol and Drug Abuse Patient Records regulations: The Federal rules restrict any use of the information to criminally investigate or prosecute any alcohol or drug abuse patient.[facility] HospitalIn the event this information is protected by the Federal Confidentiality of Alcohol and Drug Abuse Patient Records regulations: The Federal rules restrict any use of the information to criminally investigate or prosecute any alcohol or drug abuse patient.[facility] HospitalIn the event this information is protected by the Federal Confidentiality of Alcohol and Drug Abuse Patient Records regulations: The Federal rules restrict any use of the information to criminally investigate or prosecute any alcohol or drug abuse patient.[facility] HospitalIn the event this information is protected by the Federal Confidentiality of Alcohol and Drug Abuse Patient Records regulations: The Federal rules restrict any use of the information to criminally investigate or prosecute any alcohol or drug abuse patient.[facility] HospitalIn the event this information is protected by the Federal Confidentiality of Alcohol and Drug Abuse Patient Records regulations: The Federal rules restrict any use of the information to criminally investigate or prosecute any alcohol or drug abuse patient.[facility] HospitalIn the event this information is protected by the Federal Confidentiality of Alcohol and Drug Abuse Patient Records regulations: The Federal rules restrict any use of the information to criminally investigate or prosecute any alcohol or drug abuse patient.[facility] HospitalIn the event this information is protected by the Federal Confidentiality of Alcohol and Drug Abuse Patient Records regulations: The Federal rules restrict any use of the information to criminally investigate or prosecute any alcohol or drug abuse patient.[facility] HospitalIn the event this information is protected by the Federal Confidentiality of Alcohol and Drug Abuse Patient Records regulations: The Federal rules restrict any use of the information to criminally investigate or prosecute any alcohol or drug abuse patient.[facility] FOR RECORDS PERTAINING TO PATIENTS WHO ARE [...] BE BASED ON THE PRIMARY CLINICAL RECORDS. [facility]. provides no warranty or guarantee of the accuracy or completeness of information in this document.
--- NOTE | 2025-05-14 15:22 | PM.CN ---
Consult Note: HPI Data of Consult Patient: known to practice within the last 3 years Consult date: 05/14/25 Requesting Physician: Elizabeth Sierra NP Primary Care Provider: CHARLES BAZZI Consult Narrative Reason for consult: left knee pain Narrative: 69yof who presents for assessment. since last visit she underwent a left genicular nerve block with >50% improvement in pain and functional ability ongoing. continues to utilize voltaren gel, meloxicam, and PRN ibuprofen without side effects. pain 6/10 increasing to 8/10 in left knee. denies fall or injury. cc:: CC: Elizabeth Sierra NP Review of Systems ROS Status of ROS 10 or more systems reviewed and unremarkable except as noted in history and below [facility] Medical History H/O malignant neoplasm of colon ?Z85.038 - Personal history of other malignant neoplasm of large intestine (ICD-10) Osteoarthritis ?M19.90 - Unspecified osteoarthritis, unspecified site (ICD-10) Heartburn ?R12 - Heartburn (ICD-10) Acid reflux ?K21.9 - Gastro-esophageal reflux disease without esophagitis (ICD-10) Hypertension ?I10 - Essential (primary) hypertension (ICD-10) Surgical History H/O major abdominal surgery ?Z98.890 - Other specified postprocedural states (ICD-10) S/P total knee arthroplasty ?Z96.659 - Presence of unspecified artificial knee joint (ICD-10) Social History Little interest or pleasure in doing things: not at all Feeling down, depressed, or hopeless: not at all Meds Home Medications and Allergies Home Medications ?Medication ?Instructions ?Recorded ?Confirmed ?Type aspirin 81 mg tablet,delayed 81 mg PO DAILY 03/04/24 03/03/25 History release (Adult Low Dose Aspirin) meloxicam 15 mg tablet 15 mg PO DAILY 03/04/24 03/03/25 History omeprazole 40 mg capsule,delayed 40 mg PO DAILY 03/04/24 03/03/25 History release oxybutynin chloride 15 mg 15 mg PO DAILY 03/04/24 03/03/25 History tablet,extended release 24 hr escitalopram oxalate 10 mg tablet 10 mg PO DAILY 07/15/24 03/03/25 History (Lexapro) Allergies Allergy/AdvReac Type Severity Reaction Status Date / Time No Known Drug Allergies Allergy Verified 03/03/25 08:10 Exam Narrative Exam Narrative: . Constitutional Documenting provider has reviewed patient's vital signs: yes Common normals: no apparent distress, oriented x3 and alert General appearance: cooperative HENMT Common normals: normocephalic, hearing grossly normal bilaterally and moist oral mucous membranes Head and scalp: normocephalic Eye Common normals: PERRL Pupil: PERRL Neck & C-Spine Common normals: full ROM General: normal visual inspection Chest Common normals: inspection of chest normal Respiratory Common normals: normal respiratory effort, no retractions and no use of accessory muscles Extremity Left lower extremity: knee joint Other: mild edema noted with severe crepitus. increased pain with medial and lateral stress testing. no instability noted. Neuro Common normals: oriented x3 Sensorium/orientation: alert Psych Common normals: mental status grossly normal, thought process normal, cooperative, affect normal, speech normal and activity/motor behavior normal Speech: normal speech Thought process: normal thought process Results Additional Findings Additional findings: If on a controlled substance or opioids, I have checked an [place] report on this patient and there are no aberrancies noted in the prescribing history.??If on a controlled substance or opioid a drug screen was completed and reviewed within the last year, and if there has not been a drug screen completed we ordered one today to monitor higher risk, state monitored pain medication use. As part of providing excellent, safe, comprehensive care, the following was completed at our patient's visit: 1. A medication reconciliation and review to ensure accurate knowledge of current/active medications, including asking our patients to inform us about any [id number] medications or herbal remedies/nutritional supplements/alternative remedies. 2. A review to specifically ensure our patients have had annual screening for screening for depression, screening for tobacco use, and screening for unhealthy alcohol use. For concerning screenings had a discussion with the patient, provided patient education, and recommended follow-up with primary care provider when appropriate. If patient noted with a risk of falling, they received education on strength, gait, and balance training to prevent future risk of falling. Portions of this note may have been carried over from the previous visit and updated as appropriate. Please note this office utilizes paper charting in addition to the electronic medical record. A list of current medications, vitals, and PMH is available there as the clinical staff outside of myself do not have access to [employer] charting during the clinic day operations. As part of providing quality comprehensive care the current medications, vitals, and PMH were reviewed in the paper chart. Assessment and Plan Assessment and Plan (1) Unilateral primary osteoarthritis, left knee: Assessment and Plan: The patient has had over 3 months of moderate to severe left knee pain with functional impairment and inadequate response to conservative care including NSAIDS (unless there are contraindication such as concurrent blood thinners), multiple oral or topical pain medications, and home exercise program/physical therapy.? Patient has completed >6 weeks of guided home exercise program and/or formal physical therapy program without relief of their symptoms.? Plan patient not interested in RFA as she has found therapeutic genicular nerve blocks more beneficial. 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 pt noting at least 50% improvement from prior genicular nerve block and wants to ensure she can have a repeat injection as needed. we will f/u with patient after 3 months from prior injection and offer repeat therapeutic left genicular nerve block if appropriate. continue current medications, denies side effects continue HEP as tolerated
== END 2025-05-14 14:55 | disposition home or self-care (01) ==
LOC: PM 14:54
PROVIDERS: PCP Family Medicine; Visit Provider Nurse Practitioner
DX: M17.12 Unilateral primary osteoarthritis, left knee (principal)
CPT/HCPCS: G0463

== ENCOUNTER 2025-06-09 06:57 | Day surgery (SDC) | payer MEDICARE, OTHER, SELFPAY ==
--- OUTSIDE RECORDS SUMMARY | 2025-06-09 07:01 | XMS_ITS | Clinical Summary ---
Author Organization [facility] Address [address] [place] [address] Care Team Providers Care Mdm Developer Name Role Phone Leon Colin Primary Care Provider [phone] Tapan Corona MD Unavailable [phone] Naheed Elias PA-C Unavailable [phone] Maryuri Rodriguez Unavailable Unavailable Allergies No known [...] Active Problems ProblemNoted DateDiagnosed DatePartial small bowel hfpijkgcrad90/29/2024 Ileostomy bag oszgfvo5608/31/2023Ileostomy hfiifeb0408/26/2023ectal adenocarcinoma 08/25/2023 Cancer Staging: Pathologic stage from 08/31/2023: ypT0, pN0 - Signed by Zeb Marshall MD on 08/31/2023 Atrial riumayvzhcfm69 Assessment & Plan (08/11/2023 12:44 PM EST): Assessment: paroxysmal, one instance. chemo induced. No thinner. Has been on aspirin preventatively. RRR today, no murmur Per cardiology ,Dr. Canales: After receiving chemotherapy the patient admitted to the hospital for evaluation for chest pain CTA of the chest was negative. Her echocardiogram was normal referred for a Lexiscan myocardial fusion study which done at the [facility] and was able to retrieve the result and it was normal and I have reviewed that with the patient. GERD (gastroesophageal reflux disease) Assessment & Plan (08/11/2023 12:41 PM EST): Assessment: Managed and stable with current medication. Denies difficulty swallowing or any bleeding. Xtqsfbrfbrx48Hyperlipidemia Assessment & Plan (08/11/2023 12:41 PM EST): Assessment: diet controlled Mixed anxiety depressive ohporbyq82 Assessment & Plan (08/11/2023 12:42 PM EST): Assessment: stable with current medication regimen Iron deficiency anemia, sgyvrvdojzz13/28/2023 Assessment & Plan (08/14/2023 11:46 AM EST): Assessment: Stable. Denies bleeding. States chemo induced. Hemoglobin (g/dL) Date Value 08/11/2023 12.5 07/13/2023 9.4 07/05/2023 9.9 Rectal mykpuv9906/14/2023 Assessment & Plan (08/11/2023 12:42 PM EST): Assessment: last chemo 06/2023, presents for surgical intervention Essential liwlsiynjpyx17 Assessment & Plan (08/11/2023 12:40 PM EST): Assessment: stable and compliant with current medications Last 5 Encounter BP Readings: Date: BP: 08/11/2023 105/75 08/07/2023 104/62 07/27/2023 104/68 07/27/2023 145/68 07/21/2023 122/66 Personal history of malignant melanoma of skin04/28/2009Osteoarthrosis, unspecified whether generalized or localized, ankle and foot12/20/2005 Resolved Problems ProblemNoted DateDiagnosed DateResolved DateSmall bowel aojiqctnowp96/22/2024 09/04/2023Encounter for ostomy care cntlkccma52 Encounters DateTypeDepartmentCare GwibRyqkusxxqko30/25/2025 Patient Msg Reproductive Endocrinology Infertility [address] [place] [address] Provider, Ccf Appointment Cancelled: Reschedule Fzcpax6304/16/2025Telephone Radiation Oncology [address] [place] [address] [place] [address] Del Aguilar MD Patient Xgmxgd9203/26/20259135Ddmqqz77/04/2025 8:34 AM EDTAnesthesia Event Procedures [address] [place] [address] Randy Nicole MD Hootman, Jamie, EMERGENCY MANAGEMENT SYSTEM DIRECTOR.DORMITORY KEEPER 03/13/2025 7:24 AM EDT - 03/13/2025 11:59 PM EDTHospital Encounter Procedures [address] [place] [address] Laisha Singer MD Hootman, Jamie, EMERGENCY MANAGEMENT SYSTEM DIRECTOR.DORMITORY KEEPER Randy Nicole MD Abraham, Leah, KAYA Encounter for follow-up surveillance of rectal cancer [Z08, Z85.048] Discharge Disposition: Home03/13/2025Results Follow-Up Hematology [address] [place] [address] Tapan Corona MD 03/12/2025GI Preprocedure Call [facility] Surgery [address] [place] [address] Laisha Singer MD from Last 3 Months Immunizations ImmunizationAdministration DatesNext DueCOVID-19 original vaccine, full dose, monovalent (MODERNA)09/30/2020OVID-19 vaccine, age 12+ yr, bivalent (MODERNA) 09/29/2020influenza (IIV3) vaccine, trivalent (AFLURIA, FLULAVAL, FLUVIRIN, FLUZONE)04/09/2017influenza (IIV3) vaccine, trivalent, PF (AFLURIA, FLUARIX, FLULAVAL, FLUVIRIN, FLUZONE)04/09/2014influenza (IIV4) vaccine, age 6 mo - 64 yr, quadrivalent, PF (AFLURIA, FLUARIX, FLULAVAL, FLUZONE)05/07/2019,04/18/2017 influenza (IIV4) vaccine, quadrivalent (AFLURIA, FLULAVAL, FLUZONE)05/07/2019, 04/18/2017influenza (LAIV) vaccine, nasal, unspecified dvpuzqpqvvb58/29/2019 influenza (ccIIV3) vaccine, age 6+ mo, trivalent, PF (FLUCELVAX)04/09/2014 influenza vaccine, split virus07/13/2013influenza vaccine, unspecified tejnzlromka71/04/2014pneumococcal polysaccharide (PPV23) vaccine, 23 valent (PNEUMOVAX 23)04/09/2015,04/09/2014,07/25/2013zoster (RZV) vaccine, recombinant (SHINGRIX)08/08/2021,02/26/2021zoster (ZVL) vaccine, live (ZOSTAVAX)11/04/2013 Family History Medical HistoryRelationCommentsCoronary Artery DiseaseFatherEmphysemaFatherHeart diseaseFatherHyperlipidemiaFatherHypertensionFatherHypertensionMotherLung Cancer MotherRelationStatusCommentsFatherDeceasedMotherDeceased Social History Tobacco UseTypesPacks/DayYears UsedDateSmoking Tobacco: NeverPassive Smoke Exposure: PastSmokeless Tobacco: Never Tobacco Cessation:Counseling Given: Not Answered Alcohol UseStandard Drinks/WeekCommentsYes0 (1 standard drink = 0.6 oz pure alcohol)2 times a month if [facility] UtilitiesAnswerDate RecordedIn the past 12 months has the electric, gas, oil, or water company threatened to shut off services in your home?No11/09/2023Overall Financial Resource Strain (CARDIA) AnswerDate RecordedHow hard is it for you to pay for the very basics like food, housing, medical care, and heating?Patient qyhxcgqf57/22/2024HQ-2AnswerDate RecordedPHQ-2 bxrlk611Hunger Vital SignAnswerDate RecordedWithin the past 12 months, [...] steady place to sleep or slept in [facility] (including now)?No11/09/2023CommentsNoSex and Gender InformationValueDate RecordedSex Assigned at BirthNot on fileLegal Sex Ztldub6006/10/2012 9:50 AM ESTGender IdentityNot on fileSexual OrientationNot on file Last Filed Vital Signs Vital SignReadingTime TakenCommentsBlood Orendlsm269/9009/10/2024 9:30 AM EDT Uuelu1509 9:30 AM XEOKdfhhqwyhjh39.1 ??C (97 ??F)03/13/2025 9:06 AM EDT Respiratory Jkxh1820 9:30 AM EDTOxygen Mxzoupggsx896%03/13/2025 9:30 AM EDTInhaled Oxygen Concentration--Lkkfmd85.3 kg (146 lb 2.6 oz)02/20/2025 2:04 PM DXLXsdmzc729.6 cm (5' 4 )02/20/2025 2:04 PM EDTBody Mass Index25.0902/20/2025 2:04 PM EDT Plan of Treatment DateTypeDepartmentCare Team (Latest Contact Info)Rrlnpwdwjrf09/13/2026 2:15 PM ESTVisit (SP) Office Hematology [address] [place], [place] [id number] Tapan Corona MD [address] [place] [address] F/U with Dr. Corona 08/23/25, labs 1 week priorHealth MaintenanceDue DateLast DoneCommentsAnnual PCP Team Chronic Disease Visit1971Hepatitis C Screening 1971DTaP,Tdap,Td Vaccine (1 - Tdap)1972CT Vcldetdimoty41/15/1999 Cologuard (FIT-DNA)1998Fecal Occult Blood1998Lipid Screening 1998Pneumococcal Vaccine: 50+ (2 of 2 - PCV), 04/09/2014, 07/25/2013Medicare Annual Wellness Visit09/07/2018Mammogram Jthwgwzum31, 09/21/2018Advance Directive Lwvkyozhdj97/01/2025 Covid-19 Vaccine ( season)5009/30/2020, 09/29/2020, 09/03/2020Influenza Vaccine (#1)502/07/2024, 05/07/2019, 05/07/2019, Additional history xeowrmPillzqefoyy33/04/202609/10/2024Diabetes Screening , 08/19/2024, 05/08/2024, Additional history exists Colorectal Cancer Zsawjaztm99/18/2230Wuagxstnaalcd07/18/202901/, 06/08/2023, 03/16/2023RSV Vaccine (1 - 1-dose 75+ series)2028Shingrix XzswzwcSlrlfkcwj08/30/2022, 02/26/2021, 11/04/2013one Density Screening Pdjycnawg72/27/2023 Procedures Procedure NamePriorityDate/TimeAssociated DiagnosisCommentsCOLONOSCOPY SCREENING Qcjaqyy6003/13/2025 8:30 AM EDT Encounter for follow-up surveillance of rectal cancer COMPREHENSIVE METABOLIC ELQQRGuxttim89/04/2025 12:42 PM EDT History of rectal cancer Rectal cancer (HCC) NNCSEJGEBUYPEYhiatmx47/18/2024 2:25 PM EST Rectal cancer (HCC) from Last 3 Months or Most Recently Relevant to Health Maintenance Results * COLONOSCOPY SCREENING (03/13/2025 8:30 AM EDT)Anatomical RegionLaterality ModalityOtherSpecimen (Source)Anatomical Location / LateralityCollection Method / VolumeCollection TimeReceived Time03/13/2025 8:30 AM EDT Narrative 03/13/2025 9:12 AM EDT [facility] Gastrointestinal Endoscopy Patient Name: Cristina Kelley Procedure Date: 03/13/2025 8:30 AM Date of : 1955 Admit Type: Outpatient Age: 69 Room: [place] [address] Gender: Female Note Status: Finalized Attending MD: Laisha Singer MD, [id number] Procedure: ? Colonoscopy Indications: ? Surveillance: Personal [...] ? serrated colon polyps CPT copyright 2020 [employer]. All rights reserved. The codes documented in this report are preliminary and upon regional sales trainer review may be revised to meet current [...] TypeResult StatusLaisha Singer MDDIGESTIVE DISEASEFinal Result * (ABNORMAL) COMPREHENSIVE METABOLIC PANEL (02/10/2025 12:42 PM EDT)Component ValueRef RangeTest MethodAnalysis TimePerformed AtPathologist Signature Protein, Total6.66.3 - 8.0 g/dL02/10/2025 1:17 PM EDTNORTHCOAST [facility] LABAlbumin4.03.9 - 4.9 g/dL02/10/2025 1:17 PM EDTNORTHCOAST [facility] LABCalcium, Total9.08.5 - 10.2 mg/dL02/10/2025 1:17 PM EDTNORTHCOAST [facility] LABBilirubin, Total0.30.2 - 1.3 mg/dL 02/10/2025 1:17 [address] EDTNORTPINE [facility] LABAlkaline Veiemzgmnch65550 - 123 U/L02/10/2025 1:17 PM [facility]DSUM[facility] JUINXD4592 - 35 U/L02/10/2025 1:17 PM EDSUM[facility] TLCWXO139 - 38 U/L02/10/2025 1:17 PM [facility] LCFMktaxik520(H)74 - 99 mg/dL02/10/2025 1:17 PM [facility] LABComment: The [employer] Association (ADA) provides guidance for cutoff [...] Standards of Medical Care in Diabetes 2016, [employer]. Diabetes Care. 2016.39(Suppl 1). VRD915 - 21 mg/dL02/10/2025 1:17 PM [facility] LAB Creatinine0.670.58 - 0.96 mg/dL02/10/2025 1:17 PM [facility] KTVPbrtpm655785 - 144 mmol/L02/10/2025 1:17 PM EDSUMM[facility] LABPotassium4.13.7 - 5.1 mmol/L02/10/2025 1:17 PM [facility] EKRBruewipf58267 - 107 mmol/L02/10/2025 1:17 PM EDT [facility] FYHBP68119 - 30 mmol/L02/10/2025 1:17 PM EDT [facility] LABAnion Gap98 - 15 mmol/L02/10/2025 1:17 PM EDTR[facility] LABEstimated Glomerular Filtration Rate94 >=60 mL/min/1.73m 02/10/2025 1:17 PM EDTNORTHCOAST [facility] LABComment:Estimated Glomerular Filtration Rate (eGFR) is [...] VolumeCollection TimeReceived TimeBloodBLOOD SPECIMEN / UnknownVenipuncture / Odnpdjw7502/10/2025 12:42 PM EDT02/10/2025 12:52 PM EDT Narrative Authorizing ProviderResult TypeResult StatusTapan Corona MDLABORATORYFinal ResultPerforming OrganizationAddressCity/State/ZIP CodePhone Number [facility] [address] [place] [address] * SIGMOIDOSCOPY (07/27/2023 2:25 PM EST)Anatomical RegionLateralityModalityOther Specimen (Source)Anatomical Location / LateralityCollection Method / Volume Collection TimeReceived Time07/27/2023 2:08 PM EST Narrative 07/27/2023 2:31 PM EST [facility] Gastrointestinal Endoscopy Patient Name: Cristina Kelley Procedure Date: 07/27/2023 2:08 PM Date of : 1955 Admit Type: Outpatient Age: 67 Room: [place] [address] Gender: Female Note Status: Finalized Attending MD: Laisha Singer MD, [id number] Procedure: ? Flexible Sigmoidoscopy Indications: ? Personal [...] Procedure Code(s): ? --- Professional --- ? 65808, Sigmoidoscopy, flexible; diagnostic, ? including collection of specimen(s) by brushing or ? washing, when performed (separate procedure) Diagnosis Code(s): ? --- Professional --- ? K62.6, Ulcer of anus and rectum ? Z85.048, Personal history of other malignant ? neoplasm of rectum, rectosigmoid junction, and anus ? Z01.818, Encounter for other preprocedural ? examination CPT copyright 2020 [employer]. All rights reserved. The codes documented in this report are preliminary and upon regional sales trainer review may be revised to meet current [...] Maintenance Insurance Care Teams Team MemberRelationshipSpecialtyStart DateEnd Date Leon Colin [address] [place] [address] PCP - GeneralFamily Medicine03/16/23 Tapan Corona MD [address] [place] [address] [place] [address] PhysicianHematology/Oncology03/22/23 Naheed Elias, PADesireeC [address] [place] [address] [place] [address] Physician AssistantHematology/Oncology03/22/23 Maryuri Rodriguez LSW Social Worker07/21/23
--- OUTSIDE RECORDS SUMMARY | 2025-06-09 07:01 | XMS_ITS | Clinical Summary ---
Author Organization [facility] Address [address] [place] [address] Care Team Providers Care Printing Mechanist Name Role Phone Leon Colin Raphael HARLEY Primary Care Provider [phone] Allergies No known active allergies Medications MedicationSigDispense QuantityRefillsLast FilledStart DateEnd DateStatus oxybutynin XL (Ditropan-XL) 15 MG 24 hr tablet Take 15 mg by mouth in the morning.11/11/2022ctive ondansetron ODT (Zofran-ODT) 8 MG disintegrating tablet DISSOLVE ONE TABLET ON THE TONGUE EVERY 8 HOURS NEEDED FOR HRNKCD0401/11/2023 Active omeprazole (PriLOSEC) [address] capsule [...] tablet Take 5 mg by mouth DailyActive [place]-3 Fatty Acids (Fish Oil) 1200 MG capsule delayed-release Take 1,200 mg by mouth DailyActiveHospital, Clinic, or Other Facility Administered MedicationOrdered DoseRouteFrequencyStart DateEnd DateStatus denosumab (Prolia) injection 60 mg Indications:Osteopenia, unspecified location,Osteoarthritis, unspecified osteoarthritis type, unspecified site60 qgZORqpq20/31/2023ctive denosumab (Prolia) injection 60 mg Indications:Calcium increased serum60 guODEqej00/31/2023ctive Active Problems ProblemNoted DateDiagnosed DatePostmenopausal state52019 novel coronavirus-infected pneumonia (NCIP)01/12/2024cute UTI01/12/2024rthritis 01/12/2024ilateral primary osteoarthritis of knee01/12/2024bdominal pain 01/12/2024omplete obstruction of small /05/2024iverticulosis 01/12/20248619Dyxhsmwzeismb62/05/6439Jxkyrchf83/05/2024Other acute postprocedural pain01/12/2024Ileostomy kqynzf4201/12/2024artial small bowel obstruction 11/06/2023Ileostomy bag ewwmcln9908/31/2023Ileostomy gmtmtnn3608/26/2023trial irevrhevimsv82/31/2024 Overview (01/12/2024): Last Assessment & Plan: Assessment: [...] I have reviewed that with the patient. Xvmaeuzckmhuqd75/31/2024 Overview (01/12/2024): Last Assessment & Plan: Assessment: diet controlled Ewjzjoyqzvp06/31/2024GERD (gastroesophageal reflux disease)08/09/2023 Overview (01/12/2024): Last Assessment & Plan: Assessment: Managed and stable with current medication. Denies difficulty swallowing or any bleeding. Mixed anxiety depressive /31/2024 Overview (01/12/2024): Last Assessment & Plan: Assessment: stable with current medication regimen BMI 24.0-24.9, adult4Chest pain07/25/2023History of atrial fibrillation 07/20/2023Iron deficiency anemia, olbopxwlgzt21/28/2023 Overview (01/12/2024): Last Assessment & Plan: Assessment: Stable. Denies bleeding. States chemo induced. Hemoglobin (g/dL) Date Value 08/11/2023 12.5 07/13/2023 9.4 07/05/2023 9.9 Left carpal tunnel ybsqcpgi75/11/2023Stress yviknzdphudn39/11/2023Rectal cancer 06/14/2023Senile pjbwzubcnguc48/17/2023Fibrocystic breast huwymiv5301/23/2023Mixed kscvumpawmgq84/17/2023Vitamin D nnbmnavqrz41/17/2023rimary osteoarthritis of right knee12/14/2022Essential njgkuxwojfvp15/17/2017 Overview (01/12/2024): Last Assessment & Plan: Assessment: stable and compliant with current medications Last 5 Encounter BP Readings: Date: BP: 08/11/2023 105/75 08/07/2023 104/62 07/27/2023 104/68 07/27/2023 145/68 07/21/2023 122/66 Personal history of malignant melanoma of skin04/28/2009Osteoarthritis of ankle and foot12/20/2005 Immunizations ImmunizationAdministration DatesNext DueInfluenza, Split (incl. purified surface antigen)07/13/2013Influenza, injectable, ojrtvhvysoxz52/29/2019,04/18/2017 Influenza, seasonal, zjepepnhzv86/01/2017Influenza, seasonal, injectable, preservative free04/09/2014Pneumococcal Polysaccharide SCGA2936, 04/09/2014,07/25/2013Zoster, Zefthubwabi91/30/2022,02/26/2021Zoster, live 11/04/2013 Family History Medical HistoryRelationNameCommentsHeart diseaseFatherHypertensionFather [...] occasion?Never06/17/2023CommentsNoSex and Gender InformationValueDate RecordedSex Assigned at VwawjRckvcn94/31/2023 8:42 AM EDTLegal SexFemale 09/21/2022 7:08 PM EDTGender IdentityNot on fileSexual OrientationNot on file Last Filed Vital Signs Vital SignReadingTime TakenCommentsBlood Womsmrup835/7008 1:21 PM EDT Pulse--Temperature--Respiratory Rate--Oxygen Saturation--Inhaled Oxygen Concentration--Hesleu03.3 kg (148 lb 6.4 oz)02/21/2024 1:21 PM HKQWqogmn862.1 cm (5' 5 )01/12/2024 10:33 AM EDTBody Mass Index24.7001/12/2024 10:33 AM EDT Plan of Treatment Not on file Insurance Care Teams Team MemberRelationshipSpecialtyStart DateEnd Date Leon Colin DO [facility]12/13/22
--- OUTSIDE RECORDS SUMMARY | 2025-06-09 07:01 | XMS_ITS | Encounter Summary ---
Author Organization [facility] Address [address] [place] [address] Care Team Providers Care Parking Lot Chauffeur Name Role Phone Leon Colin Brendon Primary Care Provider [phone] Tapan Corona MD Unavailable [phone] Naheed Elias PA-C Unavailable [phone] Maryuri Rodriguez Unavailable Unavailable Source Comments In the event this information is protected by the Federal Confidentiality of Alcohol and Drug AbusePatient Records regulations: The Federal rules restrict any use of the information to criminally investigate or prosecute any alcohol or drug abuse patient.[facility] Encounter Details DateTypeDepartmentCare Team (Latest Contact Info)Xvizfmfuyta59/25/2025 Patient Msg Reproductive Endocrinology Infertility [address] [place] [address] Provider, Ccf Appointment Cancelled: Reschedule Needed Social History Tobacco UseTypesPacks/DayYears UsedDateSmoking Tobacco: NeverPassive Smoke Exposure: PastSmokeless Tobacco: NeverAlcohol UseStandard Drinks/WeekCommentsYes 0 (1 standard drink = 0.6 oz pure alcohol)2 times a month if [facility] Utilities AnswerDate RecordedIn the past 12 months has the electric, gas, oil, or water company threatened to shut off services in your home?No11/09/2023Overall Financial Resource Strain (CARDIA)AnswerDate RecordedHow hard is it for you to pay for the very basics like food, housing, medical care, and heating?Patient dfdvwnak71/22/2024HQ-2AnswerDate RecordedPHQ-2 ufxhj627Hunger Vital SignAnswerDate RecordedWithin the past 12 months, [...] steady place to sleep or slept in [place] (including now)?No11/09/2023 CommentsNoSex and Gender InformationValueDate RecordedSex Assigned at BirthNot on fileLegal ZotIlhvpi01/02/2012 9:50 AM ESTGender IdentityNot on file Sexual OrientationNot on filedocumented as of this encounter Functional Status * Are you deaf or do you have serious difficulty hearing?AnswerDate of XzqofqphgmDbpskzZn35/26/2024 3:54 PM Rebecca Clayton RN * Are you blind or do you have serious difficulty seeing, even when wearing glasses?AnswerDate of XlsppkacsrJbwmrpPg76/26/2024 3:54 PM Rebecca Clayton RN * Do you have serious difficulty walking or climbing stairs?AnswerDate of DnnhmcmulwZqjizfJu24/26/2024 3:54 PM Rebecca Clayton RN * Do you have difficulty dressing or bathing?AnswerDate of AssessmentAuthorNo 09/04/2023 3:54 PM Rebecca Clayton RN * Because of a physical, mental, or emotional condition, do you have difficulty doing errands alone such as visiting a doctor's office or shopping?AnswerDate of BmmbepnwfhTsosmdUq27/26/2024 3:54 PM Rebecca Clayton RN documented as of this encounter Mental Status * Because of a physical, mental, or emotional condition, do you have serious difficulty concentrating, remembering, or making decisions?AnswerEntry Date IfkgxeXd74/26/2024 3:54 PM Rebecca Clayton RN documented in this encounter Plan of Treatment DateTypeDepartmentCare Team (Latest Contact Info)Nsocnwxnwaz59/13/2026 2:15 PM ESTVisit (SP) Office Hematology [address] [place] [address] Tapan Corona MD [address] [place] [address] F/U with Dr. Corona 08/23/25, labs 1 week priordocumented as of this encounter Visit Diagnoses Not on filedocumented in this encounter Care Teams Team MemberRelationshipSpecialtyStart DateEnd Date Leon Colin [address] [place] [phone] PCP - GeneralFamily Medicine03/16/23 Tapan Corona MD [address] [place] [address] PhysicianHematology/Oncology03/22/23 Naheed Elias PA-C [address] [place] [address] [place] [address] Physician AssistantHematology/Oncology03/22/23 Maryuri Rodriguez LSW Social Worker07/21/23documented as of this encounter
--- OUTSIDE RECORDS SUMMARY | 2025-06-09 07:01 | XMS_ITS | Clinical Summary ---
Author Organization [facility] tem Address [facility] – [id number] [address] [place] [address] Care Team Providers Care Mud Jack Nozzle Worker Name Role Phone Leon Colin Raphael HARLEY Primary Care Provider [phone] Allergies No known active allergies Medications MedicationSigDispense [...] standard drink = 0.6 oz pure alcohol)socialChildcareAnswerDate MvbmlifrRqjitwhiiVrfakvr65/12/2019Employment AnswerDate MwhfcbgbNnyeyhikyjSkfrlue02/12/2019Purpose - LifeAnswerDate Recorded Purpose and direction in pinnNaokkio75/11/2021CommentsNoSex and Gender InformationValueDate RecordedSex Assigned at BirthNot on fileLegal SexFemale 02/12/2015 12:04 PM EDTGender IdentityNot on fileSexual OrientationNot on file Last Filed Vital Signs Vital SignReadingTime TakenCommentsBlood Seicqcop800/72012/15/2022 2:24 PM EDT Zobty119312/15/2022 2:24 PM XLPRsgrlqdkgmf91.8 ??C (98.3 ??F)12/15/2022 2:24 PM EDTRespiratory Pzjd228712/15/2022 2:24 PM EDTOxygen Mkggxyeqyv38%12/15/2022 2:24 PM EDTInhaled Oxygen Concentration--Tlvojs02.7 kg (149 lb 4.8 oz)12/15/2022 12:48 AM KELJklvgh949.1 cm (5' 5 )12/14/2022 6:22 AM EDTBody Mass Index24.84 12/14/2022 6:22 AM EDT Plan of Treatment Health MaintenanceDue DateLast DoneCommentsDepression Vqpuzlizt83/15/1966Tobacco Gtqcbfipa76/15/1966DTaP,Tdap and Td Vaccines (1 - Tdap)1972Fall Risk Sutfrfvci54/15/2019Adult BMI Hfuedrncq63/OVID-19 Vaccine (3 - 2024- season)503/, 09/03/2020Influenza Xhdlruy1003/10/2025 05/07/2019, 04/18/2017, 04/09/2017, Additional history existsRSV ( or age 60+ yrs) (1 - 1-dose 75+ series)2028Zoster (Shingles) VaccineCompleted 08/08/2021, 02/26/2021 Goals GoalPatient Goal TypeAssociated ProblemsRecent ProgressPatient-Stated?Author Home Maggy Julien LSW Note: Evaluation of progress towards goal: Safe dc transition home with family support and [facility] [employer] ImplantedTypeAreaManufacturerDevice IdentifierShelf Expiration DateModel / Serial / LotCement Bn Bio 40gm Rpl [id number] - Sna - [id number] Implanted:Qty: 2 on 12/14/2022 by [facility] KneeZimmer [id number] / NA / [id number] Artc 11mm Persona Mdl Cngr 6-7 Cd Kn Rt Vivacit-E - Sna - [id number] Implanted:Qty: 1 on 12/14/2022 by Zeb Valle DO at [facility] ImplantRight: KneeZimmer Jxuzms7012/07/2024 [id number] / NA / [id number] Fem 6 Std Kn Rt Crcte Rtn Cmnt Persona Cocr - Sna - [id number] Implanted:Qty: 1 on 12/14/2022 by Zeb Valle, DO at [facility] ImplantRight: KneeZimmer [id number] / NA / [id number] Tib 5d D Kn Rt Cmnt Stm Persona Tiv Strl - Sna - [id number] Implanted:Qty: 1 on 12/14/2022 [facility]nee[facility]immer [id number] / NA / [id number]cruwvOcyjvp IdentifierShelf Expiration DateModel / Serial / LotScrew Gd 48mm Qd-Spr Hex Hd Mis Strl - Sna - [id number] Explanted:Qty: 2 on 12/14/2022 [facility] KneeZimmer [id number] / NA / [id number] 27mm Hx Hd Scr Srg - Sna - [id number] Explanted:Qty: 2 on 12/14/2022 [facility] KneeZimmer Wtsibj45/24/746110-5345-386-09 / NA / [id number] Bn 35mm 6.5mm St Hip Actb Trlg Strl Rpl [id number] - Sna - [id number] Explanted:Qty: 1 on 12/14/2022 [facility]neeZimmer [id number] / NA / [id number] Bn 35mm 6.5mm St Hip Actb Trlg Strl Rpl [id number] - Sna - [id number] Explanted:Qty: 1 on 12/14/2022 [facility] KneeZimmer [id number] / NA / [id number] Insurance Care Teams Team MemberRelationshipSpecialtyStart DateEnd Date Leon Colin DO [address] [place] [id number] [facility]11/22/22
--- OUTSIDE RECORDS SUMMARY | 2025-06-09 07:01 | XMS_ITS | Clinical Summary ---
Author Organization [facility] Address [address] [place] [address] Phone Care Team Providers Care Fermentation Engineer Name Role Phone Leon Colin Primary Care Provider [phone] Allergies No known active allergies Medications MedicationSigDispense [...] 1 tablet by mouth once daily.Active omega 4-gmy-zft-fish oil (Fish OiL) 1,000 mg (120 mg-180 [...] pain07/25/2023olorectal cancer 07/25/2023MI 24.0-24.9, adult07/25/2023History of atrial sylmncsamccb86/11/2024 Essential cmcozzlvmiqy97/11/2024 Resolved Problems ProblemNoted DateDiagnosed DateResolved DateAbnormal stress [...] InformationValueDate RecordedSex Assigned at BirthNot on fileLegal JxwBmiuwy74/25/2022 4:22 PM EST Gender IdentityNot on fileSexual OrientationNot on file Last Filed Vital Signs Vital SignReadingTime TakenCommentsBlood Apvvmpwj024/8807/25/2023 12:42 PM EST Fjwzs204207/25/2023 12:42 PM ESTTemperature--Respiratory Rate--Oxygen Saturation-- Inhaled Oxygen Concentration--Qlpisk76.2 kg (146 lb)07/25/2023 12:42 PM EST Vnlbmc114.1 cm (5' 5 )07/25/2023 12:42 PM ESTBody Mass Index24. 12:42 PM EST Plan of Treatment Health MaintenanceDue DateLast DoneCommentsCT Bspffxhngasc03/15/1954olonoscopy 1953FIT-DNA (Cologuard)1953FIT1953Lipid Panel1953 Medicare Annual Wellness Visit (AWV)1953MMR Vaccines (1 of 1 - Standard series)1954Hepatitis C Jthidjsxg65/15/1972DTaP/Tdap/Td Vaccines (1 - Tdap) 08/24/19757787Suipitxcp14/15/1994Pneumococcal Vaccine (2 of 2 - PCV)04/09/2016 04/09/2015, 04/09/2014, 07/25/2013one Density Scan5011/03/2022Influenza Vaccine (#1), 04/18/2017, 04/09/2017, Additional history existsCOVID-19 Vaccine (3 - season)/, 09/03/2020 Colorectal Cancer Ecdopaxvz07/30/7413Zyguzgzjmexwa23RSV High Risk: (Elderly (60+) or Population) (1 - 1-dose 75+ series)2028 Zoster MbdztclnFajucpwbi76/30/2022, 02/26/2021, 11/04/2013HIB VaccinesAged OutNo longer eligible based [...] Team MemberRelationshipSpecialtyStart DateEnd Date Leon Colin DO [facility] - General10/05/22
--- OUTSIDE RECORDS SUMMARY | 2025-06-09 07:01 | XMS_ITS ---
Author Organization [facility] Address [address] [place] [address] Care Team Providers Care Diesel Roller Operator Name Role Phone Leon Coliner Primary Care Provider [phone] Tapan Corona MD Unavailable [phone] Naheed Elias PA-C Unavailable [phone] Maryuri Rodriguez Unavailable Unavailable Active Problems ProblemNoted DateDiagnosed DatePartial small bowel zsmsgeeoqfg15/29/2024 Ileostomy bag smfmagf8208/31/2023Ileostomy xhkfcrl6808/26/2023ectal adenocarcinoma 08/25/2023 Cancer Staging: Pathologic stage from 08/31/2023: ypT0, pN0 - Signed by Zeb Marshall MD on 08/31/2023 Atrial epetlpyzrexn62 Assessment & Plan (08/11/2023 12:44 PM EST): [...] medication. Denies difficulty swallowing or any bleeding. Hwkevdfhyrm66Hyperlipidemia Assessment & Plan (08/11/2023 12:41 PM EST): Assessment: diet controlled Mixed anxiety depressive ruuimiiu55 Assessment & Plan (08/11/2023 12:42 PM EST): Assessment: stable with current medication regimen Iron deficiency anemia, azuskgjqhyw27/28/2023 Assessment & Plan (08/14/2023 11:46 AM EST): Assessment: Stable. Denies bleeding. States chemo induced. Hemoglobin (g/dL) Date Value 08/11/2023 12.5 07/13/2023 9.4 07/05/2023 9.9 Rectal levafm2306/14/2023 Assessment & Plan (08/11/2023 12:42 PM EST): Assessment: last chemo 06/2023, presents for surgical intervention Essential nnjluxqekvuh26 Assessment & Plan (08/11/2023 12:40 PM EST): [...] Resolved Problems ProblemNoted DateDiagnosed DateResolved DateSmall bowel aeneortbfyp54/22/2024 09/04/2023Encounter for ostomy care obpykwqzf31/
--- OUTSIDE RECORDS SUMMARY | 2025-06-09 07:03 | XMS_ITS | CCD ---
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 Name Role Phone CHARLES BAZZI Unavailable Unavailable CHARLES BAZZI Unavailable Unavailable Caroline Rangel II Unavailable [phone] DO Charles Bazzi Primary Care Provider MD Caroline Rangel II Attending Provider [phone] Charles Bazzi Unavailable DO Charles Bazzi Primary [...] Care Provider Osmin KIRKPATRICK, Colleen Mathis Unavailable [phone] Cj VELASQUEZ, Tapan Unavailable [phone] Naheed Elias PA-C Unavailable DO Charles Bazzi Primary Care Provider MD Tomi Greene Attending Provider AUSTIN Rangel Emergency Provider DO Jordan Hare Admit Provider [phone] DO Jordan Hare Attending Provider KAYA Harmon Other Provider Unavailable DO Akila Stokes Other Provider MD Troy Tabares Other Provider MD David Espinosa Other Provider MD Marcos Rios Other Provider MD Blas Villagomez Other Provider ROXY Wyatt Other Provider MD Amanda Mora Other Provider MD Jomar Campos Other Provider MD Kandace Shah Other Provider Ernesto [facility] Arlette Church Other Provider MD Wendy Ocasio Other Provider MD Agustin Negron Attending Provider MD Tapan Corona Other Provider Dr. Charles Bazzi Primary Care Unavailabl Dr. Charles Ho Primary Care Unavailjonathan e Dr. Marcos Rios Attending Dr. Marcos Coreas Referring Dr. Charles Hernandez Primary Care UnavailDO Charles Reid Primary Care Provider AUSTIN Rangel Emergency Provider DO Jordan Hare Admit Provider KAYA Harmon Other Provider Unavailable DO Akila Stokes Other Provider MD Troy Tabares Other Provider MD David Espinosa Other Provider MD Marcos Rios Other Provider MD Blas Villagomez Other Provider ROXY Wyatt Other Provider MD Amanda Mora Other Provider MD Jomar Campos Other Provider MD Kandace Shah Other Provider Ernesto, [facility] Arlette Ranjit Other Provider MD Wendy Ocasio Other Provider MD Agustin Negron Attending Provider MD Tapan Corona Other Provider [phone] MD Cristhian Vargas Attending Provider Charles Bazzi DO Primary Care Provider MARCOS RIOS Attending Unavailable CHARLES BAZZI Primary Care Unavailable Maryuri Limon Unavailable Unavailable DO Charles Bazzi Primary Care Provider DO Patrice Springer Emergency Provider [facility] MD Miguel Ángel Dobson Admit Provider [phone] MD Miguel Ángel Delgadillo Attending Provider [phone] MD Tim Garduno Attending Provider MD Cristhian Vargas Other Provider DO Charles Bazzi Attending Provider MD Mary Al Emergency Provider MD Patrice Hooks Admit Provider MD Patrice Hooks Attending Provider [phone] DO Jm Trujillo Attending Provider DO Ion Eckert Other Provider Charles Bazzi Primary Care Provider [phone] LAISHA SINGER Admitting Unavailable LAISHA SINGER Attending [...] LIANA, OSCAR A Attending Unavailable LIANA, OSCAR Contreras Attending Unavailable LIANA, OSCAR A Attending Unavailable LIANA, OSCAR A Referring Unavailable V, CRISTHIAN Attending Unavailable KARAMLOU, TAPAN Referring Unavailable V, CRISTHIAN Attending Unavailable LIANA, OSCAR A Attending Unavailable LENORACATHLEEN Attending Unavailable V, CRISTHIAN Attending Unavailable KARAMLOU, TAPAN Referring Unavailable Osmin KIRKPATRICK, Colleen Mathis Unavailable Unavailable Primary Care Provider Unavailjonathan e Charles Bazzi DO Primary Care Provider Chris Henning APRN Emergency Provider [phone] Jorge A Haji DO Attending Provider Charles Bazzi DO R Primary Care Provider [phone] Jorge A Haji DO Other Provider Amanda Chester MD Attending Provider [phone] Charles Bazzi DO Attending Provider [phone] Charles Bazzi DO Primary Care Provider Chris Henning APRN Emergency Provider Charles Bazzi DO Primary Care Provider Charles Bazzi DO Primary Care Provider Amanda Chester MD Attending Provider Charles Bazzi DO Primary Care Provider Amanda Chester MD Attending Provider [phone] Ramona VELASQUEZ, Tomi Attending Provider Charles Bazzi DO R Primary Care Provider [phone] Venkat VELASQUEZ, Priscilla Mahajan Attending Unavailable Gilynseyitis , Andrius Zaina Attending Unavailable Giedraitis , Andrius Zaina Attending Unavailable Venkat VELASQUEZ, Andrius Denisaytjarad Attending Unavailable Giedraitis , Andrius Zaina Attending Unavailable Giedraitis , Andrius Vytjarad Attending Unavailable BAN, LAISHA Referring Unavailable ZOHAIB NICOLE Attending Unavailable [facility] Primary Care Unavailable KARAMLOU, TAPAN Referring Unavailable [facility], [facility] Primary Care Unavailable [facility], [facility] Primary Care Unavailable BAN, LAISHA Referring Unavailable ALE MARIE Attending Unavailable [facility], [facility] Primary Care Unavailable BAN, LAISHA Attending Unavailable BAN, LAISHA Referring Unavailable [facility], [facility] Primary Care Unavailable Del HUDSON Attending Unavailable [facility], [facility] Primary Care Unavailable KARAMLOU, TAPAN Attending Unavailable [facility], [facility] Primary Care Unavailable KARAMLOU, TAPAN Attending Unavailable [facility] Primary Care Unavailable BAN, LAISHA Attending Unavailable BAN, LAISHA Referring Unavailable [facility], [facility] Primary Care Unavailable BAN, LAISHA Referring Unavailable JANET ANTHONYBERLY A Attending Unavailable [facility], [facility] Primary Care Unavailable BAN, LAISHA Referring Unavailable WIEBUSCHMATTEOLY A Attending Unavailable [facility], [facility] Primary Care Unavailable BAN, LAISHA Referring Unavailable ALE MARIE Attending Unavailable [facility], [facility] Primary Care Unavailable KARAMLOU, TAPAN Referring Unavailable [facility], [facility] Primary Care Unavailable KARAMLOU, TAPAN Referring Unavailable [facility] Primary Care Unavailable BAN, LAISHA Referring Unavailable KARAMLOU, TAPAN Attending Unavailable [facility] Primary Care Unavailable KARAMLOU, TAPAN Referring Unavailable Charles Bazzi DO Primary Care Provider Cathleen Cooley PA-C Attending Provider Unavailable Charles Bazzi DO Attending Provider [phone] Dixie, Charles Primary Care Unavailable Amanda Chester Admitting Unavailable Amanda Chester Attending Unavailable Dixie, Charles Primary Care Unavailable Asaad, Imad Admitting Unavailable Asaad, Imad Attending Unavailable Calvey, Amanda R Admitting Unavailable Calvey, Amanda R Attending Unavailable Kuns, Charles Primary Care Unavailable Calvey, Amanda R Admitting Unavailable Kuns, Charles Primary Care Unavailable Calvey, Amanda R Attending Unavailable Milady, Chris Admitting Unavailable Milady, Chris Attending Unavailable Jorge A Haji Consulting Unavailable Kuns, Charles Primary Care Unavailable Milady, Chris Admitting Unavailable Milady, Chris Attending Unavailable Kuns, Charles Primary Care Unavailable Kuns, Charles Admitting Unavailable Kuns, Charles Primary Care Unavailable Kuns, Charles Attending Unavailable Kuns, Charles Primary Care Unavailable Calvey, Amanda R Attending Unavailable Calvey, Amanda R Admitting Unavailable Kuns, Charles Primary Care Unavailable Calvey, Amanda R Attending Unavailable Calvey, Amanda R Admitting Unavailable Raissa, Jorge A Contreras Admitting Unavailable Jorge A Haji Attending Unavailable Kuns, Charles Primary Care Unavailable Kuns, Charles Attending Unavailable Kuns, Charles Admitting Unavailable Kuns, Charles Primary Care Unavailable Medications Current Medications MedicationDrug Class(es)DatesSig (Normalized)Sig (Original)ALPRAZolam 0.25 mg oral tablet (20 sources)BenzodiazepineStart: 51-73-1899pwpu 1 tablet by mouth twice daily as needed for anxietyStart: 11-23-2023 End: 15-20-6301qnry 1 tablet by mouth twice dailyAlprazolam (Xanax) 0.25 mg tablet Discontinued 0.25 MG PO Twice daily 30 30 0 November 23, 2023 7:30amNovember 2023 11:29am Anxiety about health Other symptoms and signs involving emotional stateStart: 08-19-2022 End: 10-14-3262cxaw 1 tablet by mouth every twenty-four hours as needed ALPRAZolam (Xanax) 0.25 mg tablet Take 1 tablet (0.25 mg) by mouth once daily as needed. 0 08/19/2022 07/25/2023 Discontinued (Therapy completed)Start: 61-27-8415bhuu 1 tablet by mouth twice daily as neededXanax 0.25 MG 1 tablet Orally Twice a day prn November, ActiveAspir-81 81 MG (20 sources)Start: 16-78-6184sgeu 1 tablet by mouth once dailyAspir-81 81 MG 1 tablet Orally Once a day Feb, Activeaspirin 81 mg delayed release oral tablet (20 sources)Platelet Aggregation Inhibitor, Nonsteroidal Anti-inflammatory Drug Start: 77-36-1483jvhe 1 tablet by mouth once dailyComment on above:Take 81 mg by mouth once daily.Bacillus coagulan-calcium carb (DIGESTIVE ADVANTAGE PROBIOTIC) 2 billion cell- 140 mg cap (3 sources)Start: 11-10-2023 End: 58-02-6893tjau 1 capsule by mouth once dailyBacillus coagulan-calcium carb (DIGESTIVE ADVANTAGE PROBIOTIC) 2 billion cell- 140 mg cap Take 1 capsule by mouth once daily. Patient should start on November 10, 2023. 30 capsule 0 11/10/2023 12/10/2023 Activebifidobacterium animalis [id number] unt / lactobacillus acidophilus [id number] unt oral capsule (4 sources)Start: 21-44-1810Ipwqdetjn Product (Digestive Advantage) capsule 11/09/2023 ActiveProbiotic CAPS [...] mg/ml prefilled syringe (20 sources)RANK Ligand InhibitorStart: 32-01-6069Mcfgl: 03-06-2023 End: 91-24-3104Vkrscbvry (Prolia) 60 mg/mL Syringe Discontinued 60 MG SUBCUT EVERY 6 MONTHS March 05, 2023 11:00pm April 05, 2023 2:37pmStart: 57-96-3025kmemfovld (Prolia) injection 60 mgdiclofenac sodium 0.01 mg/mg topical gel (20 sources)Nonsteroidal Anti-inflammatory DrugStart: 66-73-8242Clinmsypgo Sodium 1 % 1-2 grams to affected area Externally Four times a day for 30 days May, ActiveStart: 75-51-3982Baeqllqp 1 % apply 1-2 grams to affected area Externally up to 4x's daily for 30 days Feb, ActiveStart: 02-11-2022 Voltaren 1 % apply 1-2 grams to affected area Externally up to 4x's daily for 30 days Feb, Active0.4 ml enoxaparin sodium 100 mg/ml prefilled syringe (6 sources)Low Molecular Weight HeparinStart: 08-30-2023 End: 95-29-3401ivbbwb 40 mg by subcutaneous injection every twenty-four hours enoxaparin (LOVENOX) 40 mg/0.4 mL Inject 0.4 mL subcutaneously every 24 hours for 21 days. 8.4 mL 09/20/2023 ActiveComment on above:Inject 0.4 mL subcutaneously every 24 hours for 21 days.enteric contrast (will be provided with radiology test) (5 sources)Start: 09-03-2024 End: 79-68-9321wszmepi contrast (will be provided with radiology test) Indications: History of rectal cancer , Rectal cancer (HCC) For CT CHESTABD/PEL W IVCON Routine order Administer, As Directed One Time Only, via Oral, Rectal, both Oral and Rectal, Enteric Tube, Stoma or Indwelling Catheter, Enteric Contrast as designated per enteric contrast guidelines 1 Each 09/03/2024 09/04/2024 ActiveStart: 04-28-2023 End: 52-26-2589jlublto contrast (will be provided with radiology test) MRI RECTUM WO/W. Administer, As Directed One Time Only, via Oral, Rectal, both Oral and Rectal, Enteric Tube, Stoma or Indwelling Catheter, Enteric Contrast as designated per enteric contrast guidelines 1 Each 0 04/28/2023 04/29/2023 Active Start: 03-07-2023 End: 06-38-0641tjylsse contrast (will be provided with radiology test) MRI RECTUM WO/W. Administer, As Directed One Time Only, via Oral, Rectal, both Oral and Rectal, Enteric Tube, Stoma or Indwelling Catheter, Enteric Contrast as designated per enteric contrast guidelines 1 Each 0 03/07/2023 03/08/2023 ExpiredStart: 03-07-2023 End: 30-06-0157ihqdxhn contrast (will be provided with radiology test) [...] Enteric Contrast as designated per enteric contrast guidelinesibuprofen 400 mg oral tablet (11 sources)Nonsteroidal Anti-inflammatory DrugStart: 11-09-2023 End: 13-12-6828tevhwogpq 400 MG tablet 11/09/2023 ActiveINV SEMAGLUTIDE 0.25 MG/0.5 ML INJECTION (IRB 24-915) (3 sources)INV SEMAGLUTIDE 0.25 MG/0.5 ML INJECTION (IRB 24-915) Inject 0.25 mg subcutaneously one time a week. For Investigational Drug Use Only. PI: Ruthann Cisneros MD. Activeiv contrast (will be provided with radiology test) (5 sources)Start: 09-03-2024 End: 92-52-7821tw contrast (will be provided with radiology test) [...] 1 Each 09/03/2024 09/04/2024 ActiveStart: 04-28-2023 End: 75-68-7313je contrast (will be provided with radiology test) [...] 0 04/28/2023 04/29/2023 Active Start: 03-07-2023 End: 45-15-3255qj contrast (will be provided with radiology test) [...] Each 0 03/07/2023 03/08/2023 Start: 03-07-2023 End: 18-38-6012qp contrast (will be provided with radiology test) [...] 3 billion cell capsule (1 source) End: 54-78-3161sabokummankru combination no.4 (Probiotic) 3 billion cell capsule Take 1 capsule by mouth once daily. 0 07/25/2023 Discontinued (Therapy completed)loperamide hydrochloride 2 mg oral capsule (4 sources)Opioid AgonistStart: 60-22-0502hdxmpcpzix (Imodium) 2 MG capsule 08/30/2023 ActiveComment on above:Take 1 capsule by mouth before meals and at bedtime.magnesium gluconate 500 mg oral tablet (1 source)take 1 tablet by mouth once dailymagnesium, as gluconate, (Mag-G) 27 mg magnesium (500 mg) tablet Take 1 tablet (27 mg) by mouth once daily. 0 Active Tiofcrgi-Pvn-Thre-Fa-Lutein (Multivitamin Women 50 Plus) 8 mg iron-400 mcg-300 mcg Tablet (3 sources)Start: 52-28-5119onlq 1 tablet by mouth once daily Onoeuvlm-Tra-Nnmk-Fa-Lutein (Multivitamin Women 50 Plus) 8 mg iron-400 mcg-300 mcg Tablet Active 1 TAB PO Daily November 01, 2018 11:00pmStart: 36-52-4801ncvb 1 tablet by mouth once xbxynZxmhjkbu-Bsh-Pohc-Fa-Lutein (Multivitamin Women 50 Plus) 8 mg iron-400 mcg-300 mcg Tablet Active 1 TAB PO Daily November 02, 2018 12:00amMultivitamin Gummies Womens - (20 sources)Multivitamin Gummies Womens - Orally ActiveOmega 3 Fish Oil (20 sources)Dewey 3 Fish Oil one oral daily Activeomega 8-gye-oka-fish oil (Fish OiL) 1,000 mg (120 mg-180 mg) capsule (1 source)take 1 capsule by mouth once dailyomega 6-bqa-rjz-fish oil (Fish OiL) 1,000 mg (120 mg-180 mg) capsule Take 1 capsule (1,000 mg) by mouth once daily. 0 ActiveOmega-3 Fatty Acids (Fish Oil) 1200 MG capsule delayed-release (3 sources)take 1 capsule by mouth once dailyOmega-3 Fatty Acids (Fish Oil) 1200 MG capsule delayed-release Take 1,200 mg by mouth Daily ActiveoxyCODONE hydrochloride 5 mg oral tablet (5 sources)Opioid AgonistStart: 11-09-2023 End: 57-01-0975igvf 1 tablet by mouth every six hours as neededoxyCODONE IR (ROXICODONE) 5 mg immediate release tablet Indications: Post-op pain Take 1 tablet by mouth every 6 hours as needed for up to 7 days. 25 tablet 0 11/09/2023 11/17/2023 ActiveStart: 08-29-2023 End: 00-88-2965smlc 1 tablet by mouth every six hours as neededoxyCODONE IR (ROXICODONE) 5 mg immediate release tablet Indications: Post-op pain Take 1 tablet by mouth every 6 hours as needed for up to 7 days. 25 tablet 0 08/29/2023 09/06/2023 ExpiredComment on above:Take 1 tablet by mouth every 6 hours as needed for up to 7 days.polyethylene glycol 3350 452052 mg / potassium chloride 2970 mg / sodium bicarbonate 6740 mg / sodium chloride 5860 mg / sodium sulfate 99701 mg powder for oral solution (3 sources)Osmotic LaxativeStart: 67-19-8804Leubjprn 236 GM At 4:00 pm the day prior to colonoscopy Orally 8 ounces every 15 minutes for 1 daysPLEASE CHECK ALLERGIES Feb, Activeprobiotic (20 sources)probiotic Active Completed/Discontinued Medications MedicationDrug Class(es)DatesSig (Normalized)Sig (Original)acetaminophen 500 mg oral tablet (20 sources)Start: 08-29-2023 End: 66-31-9137oaki 2 tablets by mouth every eight hoursacetaminophen (TYLENOL) 500 mg tablet Take 2 tablets by mouth every 8 hours. 100 tablet 0 08/29/2023 02/06/2024 DiscontinuedComment on above:Take 2 tablets by mouth every 8 hours. acetaminophen 325 mg / HYDROcodone bitartrate 5 mg oral tablet (20 sources)Opioid AgonistStart: 08-26-2024 End: 51-20-8749inoe 1 tablet by mouth every four to six hours as needed for pain Hydrocodone-Acetaminophen 5-325 mg tablet Discontinued 1 - 2 TAB PO EVERY 4-6 HOURS as needed for pain 20 7 0 September 04, 2024 September 10, 2024 11:43am Postoperative pain of extremity Infection of finger Arthritis of finger Other acute postprocedural pain Pain in unspecified limb Local infection of the skin and subcutaneous tissue, unspecified Primary osteoarthritis, unspecified hand dispense #20 (twenty) dx: postopStart: 06-11-2024 End: 53-67-8189tytf 1 tablet by mouth every four to six hours as needed for pain Hydrocodone-Acetaminophen 5-325 mg tablet Discontinued 1 - 2 TAB PO EVERY 4-6 HOURS as needed for pain 30 4 0 June 11, 2024 June 11, 2024 11:47am Infection of finger Postoperative pain of extremity Local infection of the skin and subcutaneous tissue, unspecified Other acute postproceduralpain Pain in unspecified limbStart: 05-31-2024 End: 55-28-8419bifj 1 tablet by mouth every four to six hours as needed for pain Hydrocodone-Acetaminophen 5-325 mg tablet Discontinued 1 - 2 TAB PO EVERY 4-6 HOURS as needed for pain 30 4 0 June 11, 2024 August 20, 2024 8:52am Infection of finger Postoperative pain of extremity Local infection of the skin and subcutaneous tissue, unspecified Other acute postproceduralpain Pain in unspecified limb Dispense: 30 (thirty) Diagnosis: L08.9Start: 05-22-2024 End: 18-51-2493zxyk 1 tablet by mouth every eight hours as needed for pain Hydrocodone-Acetaminophen 5-325 mg tablet Discontinued 1 TAB PO Every 8 hours as needed for pain 7 2 0 May 22, 2024 May 31, 2024 11:28am Cellulitis Cellulitis, unspecifiedStart: 06-26-2023 End: 06-97-5189oomv 1 tablet by mouth every six hours as needed for pain Hydrocodone-Acetaminophen 5-325 mg tablet Discontinued 1 TAB PO Q6H as needed for pain 20 5 0 June 26, 2023 September 30, 2023 6:51am Other acute postprocedural pain Other acute postprocedural painacetaminophen 325 mg / oxyCODONE hydrochloride 5 mg oral tablet (16 sources)Opioid AgonistStart: 05-22-2024 End: 71-59-9364Hbmcqmiuo-Acetaminophen 5-325 mg tablet Discontinued 1 TAB PO As Directed May 22, 2024 12:00am May 31, 2024 11:27amamLODIPine 5 mg / benazepril hydrochloride 10 mg oral capsule (20 sources)Dihydropyridine Calcium Channel Tanya, Angiotensin Converting Enzyme InhibitorStart: 09-30-2023 End: 50-76-9395llck 1 capsule by mouth once dailyAmlodipine-Benazepril 5-10 mg capsule Discontinued 1 CAP PO Daily September 29, 2023 11:00pm November 23, 2023 7:15amStart: 02-28-2018 End: 72-80-4701jqqi 1 tablet by mouth once dailyAmlodipine-Benazepril 5-10 mg capsule Discontinued 1 TAB PO Daily November 01, 2018 11:00pm 2023 8:32am htnComment on above:Take 1 capsule by mouth every morning.amoxicillin 500 mg oral tablet (20 sources)Penicillin-class AntibacterialStart: 06-13-2023 End: 92-39-2567Smtvlqxhptc 500 mg tablet FOR DENTAL WORK 06/13/2023 09/03/2024 DiscontinuedComment on above:FOR DENTAL WORKatropine sulfate 0.025 mg / diphenoxylate hydrochloride 2.5 mg oral tablet (1 source)Anticholinergic, Cholinergic Muscarinic Antagonist, Antidiarrheal Start: 57-75-0301mzoq 1 tablet by mouth four times daily [...] 30 days. azithromycin 250 mg oral tablet (15 sources)Macrolide AntimicrobialStart: 07-09-2024 End: 24-05-1560Yeuzqfvwpxvd (Zithromax Z-Lazaro) 250 mg tablet Discontinued 0 PO .COMPLEX 6 0 July 09, 2024 12:00am August 14, 2024 12:52pm For 250 mg dose pack: take 500 mg today (day 1), then 250 mg for 4 days (days 2-5) POStart: 33-06-0976Yvdttybpm Z-Lazaro 250 MG 2 tablet on the first day, then 1 tablet daily for 4 days Orally Once a day for 5 day(s) May, Yiysgh03 hr buPROPion hydrochloride 90 mg / naltrexone hydrochloride 8 mg extended release oral tablet (6 sources)Opioid Antagonist, AminoketoneStart: 66-28-7883voea 2 tablets by mouth every twelve hoursContrave 8-90 MG 2 tablets Orally Twice a day for 30 days Feb, Not-Takingcalcium carbonate 1500 mg / cholecalciferol 0.01 mg oral capsule (20 sources)Vitamin D End: 31-43-0997adsz 1 tablet by mouth once dailycalcium carbonate/vitamin [...] chewable tablet (20 sources)Vitamin DStart: 11-02-2018 End: 86-21-7240tcuh 2 tablets by mouth once dailyCalcium-Vitamin D3-Vitamin K (Citracal-D3 Soft Chew) 500 mg-1,000 unit-40 mcg Tablet,Chewable Discontinued 2 TAB PO Daily November 01, 2018 11:00pm June 26, 2023 10:46am bone health capecitabine 500 mg oral tablet (20 sources)Nucleoside Metabolic InhibitorStart: 04-05-2023 End: 45-83-3569Zeepjhrcaavi 500 mg Tablet Discontinued MG April 04, 2023 11:00pm June 26, 2023 10:48amStart: 04-05-2023 End: 69-92-2913Lmhcckdontvz Discontinued MG TABLET April 05, 2023 12:00am June 26, 2023 11:48amStart: 03-21-2023 End: 81-80-8986tauy 3 tablets by mouth twice dailycapecitabine (XELODA) 500 mg tablet Take 3 tablets (1,500 mg) by mouth twice daily Monday through Monday only on days of radiation. 180 tablet 03/21/2023 04/14/2023 DiscontinuedComment on above:Take 3 tablets (1,500 mg) by mouth twice daily Monday through Monday only on days of radiation.cephalexin 500 mg oral capsule (16 sources)Cephalosporin AntibacterialStart: 05-22-2024 End: 02-98-1320gigu 1 capsule by mouth twice dailyCephalexin 500 mg capsule Discontinued 500 MG PO Twice daily May 22, 2024 12:00am June 11, 2024 1:10pmcompounded progesterone 50 mg capsule (20 sources) End: 48-70-4926nqph 3 capsules by mouth once daily at [...] Anti-inflammatory Drug, Prostaglandin E1 AnalogStart: 02-27-2009 End: 57-51-5390bcswzgeipo sodium/misoprostol(ARTHROTEC 50 50 MG-200 MCG TAB) as directed 0 02/27/2009 03/21/2023 DiscontinuedComment on above:as directed docosahexaenoic acid/epa (FISH OIL ORAL) (20 sources) End: 66-75-8235thuo 2000 mg by mouth twice dailydocosahexaenoic acid/epa (FISH OIL ORAL) Take 2,000 mg by mouth two times a day. 02/06/2024 Discontinued End: 89-30-6492ywtn 2000 mg by mouth twice dailydocosahexaenoic acid/epa [...] oral tablet (20 sources)Tetracycline-class DrugStart: 08-26-2024 End: 46-52-0367emsv 1 tablet by mouth twice dailyDoxycycline Hyclate 100 mg tablet Discontinued 100 MG PO Twice daily September 04, 2024 12:00am September 27, 2024 10:50amStart: 05-31-2024 End: 49-31-0604xrer 1 tablet by mouth twice dailyDoxycycline Hyclate 100 mg tablet Discontinued 100 MG PO Twice daily 20 10 0 August 14, 2024 1:04pm August 20, 2024 8:52amescitalopram 10 mg oral tablet (20 sources)Serotonin Reuptake InhibitorStart: 06-11-2024 End: 96-61-0975pnyj 1 tablet by mouth once dailyEscitalopram Oxalate (Lexapro) 10 mg tablet Discontinued 10 MG PO Daily 90 1 November 04, 2024 4:26pm April 28, 2025 9:57amesomeprazole 20 mg delayed release oral capsule (20 sources)Proton Pump InhibitorStart: 11-02-2018 End: 78-50-4980sobd 1 capsule by mouth once dailyEsomeprazole Magnesium (Nexium) 20 mg Capsule,Delayed Release(Dr/Ec) Discontinued 20 MG PO Daily November 01, 2018 11:00pm March 06, 2023 7:54amferrous sulfate 325 mg oral tablet (20 sources)Start: 04-06-2023 End: 06-96-0103cayb 1 tablet by mouth once dailyFerrous Sulfate (Ferosul) 325 mg (65 mg iron) tablet Discontinued 325 MG PO Daily April 05, 2023 11:00pm June 26, 2023 10:48amFish Oil CAPS (1 source)Fish Oil CAPS TAKE 1 CAPSULE Daily Quantity: 0 Refills: 0 Ordered: 26-Oct-2022 DO Activegabapentin 100 mg oral capsule (20 sources)Anti-epileptic AgentStart: 11-21-2023 End: 70-33-6126mlgd 1 capsule by mouth three times dailyGabapentin 100 mg capsule Discontinued 100 MG PO Three times daily November 22, 2023 11:00pm May 31, 2024 11:28amibandronic acid 150 mg oral tablet (20 sources)BisphosphonateStart: 11-02-2018 End: 10-51-1333aqat 1 tablet by mouth every monthIbandronate (Boniva) 150 mg Tablet Discontinued 150 MG PO every month November 01, 2018 11:00pm March 06, 2023 8:00amLactobacillus acidophilus (20 sources) End: 58-39-2054Rejvrhzkhqwgb acidophilus (PROBIOTIC ORAL) Take by mouth. 06/20/2023 Discontinued End: 18-17-2203Ebvmrypodupkb acidophilus (PROBIOTIC ORAL) Take by mouth. 0 06/20/2023 DiscontinuedLactobacillus acidophilus (PROBIOTIC ORAL) Take by mouth. 0 ActiveComment on above:Take by mouth.Lactobacillus Comb No.10 (Probiotic) 20 billion cell Capsule (20 sources)Start: 03-06-2023 End: 07-77-3455Syrzprepkrenr Comb No.10 (Probiotic) 20 billion cell Capsule Discontinued 33003 MMU CELLS PO Daily March 06, 2023 12:00am June 11, 2024 2:10pm administer with a mealStart: 03-06-2023 End: 02-19-5492Vkpcvxamxozgx Comb No.10 (Probiotic) 20 billion cell Capsule Discontinued 94777 MMU CELLS PO Daily March 05, 2023 11:00pm June 11, 2024 1:10pm administer with a mealStart: 33-06-8053Ykkpcgqfdkmwn Comb No.10 (Probiotic) 20 billion cell Capsule Active 49995 MMU CELLS PO Daily 2022 11:00pm administer with a mealStart: 63-32-3746Uxxmxeametpwn Comb No.10 (Probiotic) 20 billion cell Capsule Active 70092 MMU CELLS PO Daily 2022 12:00am administer with a mealMagnesium (20 sources)Start: 03-06-2023 End: 94-76-6117iwak 1 tablet by mouth once dailyMagnesium 500 mg Tablet Discontinued 500 MG PO Daily March 06, 2023 12:00am November 23, 2023 8:15am Start: 03-06-2023 End: 60-72-4628smwc 1 tablet by mouth once dailyMagnesium 500 mg Tablet Discontinued 500 MG PO Daily March 05, 2023 11:00pm November 23, 2023 7:15am Start: 32-37-0866ogwq 500 mg by mouth once dailyMagnesium Active 500 MG PO Daily March 05, 2023 11:00pmStart: 34-10-6273kdnr 500 mg by mouth once daily Magnesium Active 500 MG PO Daily March 06, 2023 12:00am End: 76-22-8041Nsvzcjjkl 250 mg tab Take 500 mg by mouth. 06/20/2023 Discontinued End: 99-37-6461Suvvibhfj 250 mg tab Take 500 mg by [...] tablet (20 sources)Nonsteroidal Anti-inflammatory DrugStart: 02-27-2023 End: 03-98-0584sipl 1 tablet by mouth once dailyMeloxicam 15 mg tablet Discontinued 15 MG PO Daily 90 90 1 April 30, 2024 12:32pm July 8:33amComment on above:Take 1 tablet by mouth every afternoon.Take 1 tablet by mouth once daily.methylPREDNISolone 4 mg oral tablet (19 sources)CorticosteroidStart: 07-09-2024 End: 86-24-4389ykww 1 tablet by mouth onceMethylprednisolone (Medrol (Lazaro)) 4 mg tablets,dose pack Discontinued 0 PO per package directions 21 0 July 09, 2024 12:00am August 20, 2024 8:53am PO PER PKG DIRStart: 67-05-9283Doapet 4 MG as directed Orally May, Not-TakingmetroNIDAZOLE 500 mg oral tablet (1 source)Nitroimidazole AntimicrobialStart: 82-72-1851ritl 1 tablet by mouth three times dailymetroNIDAZOLE [...] Acid (Adult Multivitamin Gummies) 120 mcg tablet,chewable (16 sources)Start: 10-30-2023 End: 74-97-3600rpfa 1 tablet by mouth once dailyMultivit With Min-Folic Acid (Adult Multivitamin Gummies) 120 mcg tablet,chewable Discontinued 1 TAB PO Daily October 30, 2023 12:00am November 23, 2023 8:15amStart: 10-30-2023 End: 92-74-8975qyze 1 tablet by mouth once dailyMultivit With Min-Folic Acid (Adult Multivitamin Gummies) 120 mcg tablet,chewable Discontinued 1 TAB PO Daily October 29, 2023 11:00pm November 23, 2023 7:45obXmsdtkvh-Rlv-Jjij-Fa-Vit K-Lut (Multivitamin Women 50 Plus) 8 mg iron-400 mcg-300 mcg Tablet (20 sources)Start: 11-02-2018 End: 82-48-5301zxda 1 tablet by mouth once jhgscVkncbpzf-Zsl-Unrn-Fa-Vit K-Lut (Multivitamin Women 50 Plus) 8 mg iron-400 mcg-300 mcg Tablet Discontinued 1 TAB PO Daily November 01, 2018 11:00pm March 06, 2023 8:01amStart: 11-02-2018 End: 12-52-3262ervo 1 tablet by mouth once bldsdUrsqzgyi-Anb-Xbtl-Fa-Vit K-Lut (Multivitamin Women 50 Plus) 8 mg iron-400 mcg-300 mcg Tablet Discontinued 1 TAB PO Daily November 02, 2018 12:00am March 06, 2023 9:01amnaproxen 500 mg oral tablet (20 sources)Nonsteroidal Anti-inflammatory DrugStart: 11-02-2018 End: 71-33-5381kzdn 1 tablet by mouth once dailyNaproxen 500 mg tablet Discontinued 500 MG PO Daily November 01, 2018 11:00pm March 06, 2023 7:56am arthritistake 1 tablet by mouth every twelve hours at mealtime as neededNaproxen 500 MG 1 tablet with food or milk as needed Orally every 12 hrs for 90 days Not-Takingneomycin sulfate 500 mg oral tablet (1 source)Aminoglycoside AntibacterialStart: 18-64-7115giwrcxea 500 mg tablet Indications: Rectal cancer (HCC) Take 2 tablets by mouth as directed. Take 2 tablet at 6pm, 7pm, and 11pm the evening prior to surgery. 6 tablet 0 08/03/2023 ActiveComment on above:Take 2 tablets by mouth as directed. Take 2 tablet at 6pm, 7pm, and 11pm the evening prior to surgery.nitroglycerin 0.4 mg sublingual tablet (20 sources)Nitrate VasodilatorStart: 07-07-2023 End: 80-57-6908rsgazjufprhrf sublingual (NITROQUICK) 0.4 mg SL tablet Dissolve 1 tablet under the tongue as neededfor chest pain, may repeat every 5 minutes if no relief up to 3 times. 25 tablet 0 07/07/2023 02/06/2024 Discontinued (Discontinued by Patient)Comment on above:Dissolve 1 tablet under the tongue as needed for chest pain, may repeat every 5 minutes if no relief up to 3 times. Dewey 2-Awu-Qoo-Fish Oil (Fish Oil) 1,000 mg (120 mg-180 mg) Capsule (20 sources)Start: 11-02-2018 End: 50-21-5649yibx 1 capsule by mouth once dailyOmega 8-Xli-Omp-Fish Oil (Fish Oil) 1,000 mg (120 mg-180 mg) Capsule Discontinued 1 CAP PO Daily November 02, 2018 12:00am May 31, 2024 12:29pmStart: 11-02-2018 End: 10-55-8535muwb 1 capsule by mouth once dailyOmega 7-Gpb-Ava-Fish Oil (Fish Oil) 1,000 mg (120 mg-180 mg) Capsule Discontinued 1 CAP PO Daily November 01, 2018 11:00pm May 31, 2024 11:29amStart: 24-32-2018skom 1 capsule by mouth once dailyOmega 2-Sjz-Fgp-Fish Oil (Fish Oil) 1,000 mg (120 mg-180 mg) Capsule Active 1 CAP PO Daily November 01, 2018 11:00pmStart: 09-19-5723swvk 1 capsule by mouth once dailyOmega 9-Uow-Qdd-Fish Oil (Fish Oil) 1,000 mg (120 mg-180 mg) Capsule Active 1 CAP PO Daily November 02, 2018 12:00amomeprazole 40 mg delayed release oral capsule (20 sources)Proton Pump InhibitorStart: 07-09-2018 End: 31-09-8885mtyn 1 capsule by mouth once dailyOmeprazole 40 mg capsule,delayed release(DR/EC) Discontinued 40 MG PO Daily April 05, 2023 11:00pm May 08, 2024 11:03amComment on above:Take 1 capsule by mouth every afternoon.Take 40 mg by mouth once daily.ondansetron 4 mg oral tablet (20 sources)Serotonin-3 Receptor AntagonistStart: 05-22-2024 End: 58-61-2585dzmp 1 tablet by mouth every eight hours as needed for nausea and vomitingOndansetron Hcl 4 mg tablet Discontinued 4 MG PO Every 8 hours as needed for nausea and vomiting 7 0 May 22, 2024 12:00am June 11, 2024 1:11pmStart: 03-21-2023 End: 05-20-1156pzmt 1 tablet by mouth every eight hours as neededondansetron (ZOFRAN) 8 mg tablet Take 1 tablet by mouth every 8 hours as needed for nausea/vomiting. 90 tablet 2 03/21/2023 02/06/2024 DiscontinuedStart: 01-11-2023 End: 14-21-4981viyi 1 tablet by mouth every eight hours as needed for nausea Comment on above:Take 1 tablet by mouth every 8 hours as needed for nausea/vomiting.24 hr oxybutynin chloride 15 mg extended release oral tablet (20 sources)Cholinergic Muscarinic AntagonistStart: 31-67-2849ypde 1 tablet by mouth every twenty-four hours in the morningoxybutynin XL (Ditropan-XL) 15 MG 24 hr tablet Take 15 mg by mouth in the morning. 11/11/2022 ActiveStart: 02-28-2018 End: 41-47-3558slns 1 tablet by mouth once dailyOxybutynin Chloride 15 mg tablet extended release 24hr Discontinued 15 MG PO Daily November 01, 201811:00pm May 08, 2024 11:03amComment on above:Take 15 mg by mouth.phenazopyridine hydrochloride 100 mg oral tablet (10 sources)Start: 05-01-2023 End: 55-86-9922dszj 2 tablets by mouth every eight hours as needed phenazopyridine (PYRIDIUM) 100 mg tablet Take 2 tablets by mouth three times a day as needed. 30 tablet 2 05/01/2023 06/20/2023 DiscontinuedComment on above: Take 2 tablets by mouth three times a day as needed.polyethylene glycol 3350 47924 mg powder for oral solution (20 sources)Osmotic LaxativeStart: 04-05-2023 End: 36-83-0685Rafwzyvdgesj Glycol 3350 (Miralax) 17 gram Powder In Packet Discontinued 17 GM PO Daily as needed for Constipation April 04, 2023 11:00pm September 30, 2023 6:52amComment on above:Take by mouth once daily. Dissolve dose in 4 - 8 ounces of liquid and take as directed.potassium 99 mg extended release oral tablet (20 sources)Start: 03-06-2023 End: 71-84-1354mabq 1 tablet by mouth once dailyPotassium 99 mg Tablet Discontinued 99 MG PO Daily March 05, 2023 11:00pm June 26, 2023 10: 49amtake 1 tablet by mouth once dailyPotassium 99 MG Oral Tablet TAKE 1 TABLET DAILY. Quantity: 0 Refills: 0 Ordered: 26-Oct-2022 DO Activepotassium citrate 99 mg oral tablet (20 sources) End: 61-52-5352wnsz 1 tablet by mouth once daily in the morningpotassium citrate 99 mg cap Take 1 tablet by mouth every morning. 06/20/2023 DiscontinuedComment on above:Take 1 tablet by mouth every morning.prochlorperazine 10 mg oral tablet (20 sources)PhenothiazineStart: 03-21-2023 End: 52-65-4776gjgo 1 tablet by mouth every six hours as needed for nausea Prochlorperazine Maleate (Compazine) 10 mg Tablet Discontinued 10 MG PO Q6H as needed for Nausea April 04, 2023 11:00pm November 23, 2023 7:16amComment on above:Take 1 tablet by mouth every 6 hours as needed.progesterone 100 mg oral capsule (20 sources)ProgesteroneStart: 06-26-2023 End: 03-32-7606iscz 1 capsule by mouth once dailyProgesterone Micronized 100 mg Capsule Discontinued 150 MG PO Daily June 26, 2023 12:00am 2023 7:16amStart: 49-42-7533ukbl 150 mg by mouth once dailyProgesterone Micronized Active 150 MG PO Daily June 26, 2023 1:00amStart: 04-05-2023 End: 09-47-4374Sjotujkqhndu 50 mg/mL Oil Discontinued MG IM April 04, 2023 11:00pm June 26, 2023 10:50amStart: 04-05-2023 End: 79-16-3653Aaqnkenidnge Discontinued MG IM April 05, 2023 12:00am June 26, 2023 11:50ampsyllium 3400 mg powder for oral suspension (1 source)Start: 98-93-5579qfkx 1 dose by mouth three times dailypsyllium (METAMUCIL) 3.4 gram packet Take 1 Packet by mouth three times a day. 90 Packet 1 08/30/2023 SuspendedComment on above:Take 1 Packet by mouth three times a day. sulfamethoxazole 800 mg / trimethoprim 160 mg oral tablet (16 sources)Dihydrofolate Reductase Inhibitor Antibacterial, Sulfonamide AntimicrobialStart: 05-22-2024 End: 56-20-8587Poyfislpiwfjiyzh-Trimethoprim 800-160 mg tablet Discontinued 1 TAB PO As Directed May 22, 2024 12:00am June 11, 2024 1:84vw0248 mg testosterone 0.01 mg/mg topical gel (20 sources)AndrogenStart: 04-05-2023 End: 55-52-5668Nphmtgmyzxln 1 % (25 mg/2.5gram) Gel In Packet Discontinued 1 PACKET TRANSDERML Daily April 04, 2023 11:00pm September 30, 2023 6:52am End: 17-46-1901Lougimudstiv 12.5 mg/ 1.25 gram (1 %) glpm Apply 2 Pump as directed once daily. 0.5 MIL 0 02/06/2024 DiscontinuedTestosterone 12.5 mg/ 1.25 gram (1 %) glpm Apply 4 Pump as directed once daily. 0 ActiveComment on above: Apply 4 Pump as directed once daily.Apply 2 Pump as directed once daily. 0.5 MIL traMADol hydrochloride 50 mg oral tablet (20 sources)Opioid AgonistStart: 11-09-2018 End: 48-99-5109pwal 1 tablet by mouth every four hours as needed for pain Tramadol 50 mg Tablet Discontinued 50 MG PO Q4H as needed for Pain 20 7 0 November 08, 2018 11:00pm March 06, 2023 7:57am Postoperative pain Other acute postprocedural paintriamcinolone acetonide 32 mg injection (20 sources)CorticosteroidStart: 08-93-1386Vollcjoe May, 32 mgTumeric Curcumin Complex (20 sources)Start: 11-02-2018 End: 65-97-4548kjis 2 capsules by mouth once dailyTumeric Curcumin Complex Discontinued 2 CAP PO Daily November 01, 2018 11:00pm March 06, 2023 8:01am supplementStart: 11-02-2018 End: 98-93-3882jxny 2 capsules by mouth once dailyTumeric Curcumin Complex Discontinued 2 CAP PO Daily November 01, 2018 11:00pm March 06, 2023 8:01am Start: 11-02-2018 End: 81-09-0705nzww 2 capsules by mouth once dailyTumeric Curcumin Complex Discontinued 2 CAP PO Daily November 02, 2018 12:00am March 06, 2023 9:01am Start: 14-72-5585shen 2 capsules by mouth once dailyTumeric Curcumin Complex Active 2 CAP PO Daily November 01, 2018 11:00pmStart: 26-09-4934crdg 2 capsules by mouth once dailyTumeric Curcumin Complex Active 2 CAP PO Daily November 02, 2018 12:00amvenlafaxine 75 mg oral tablet (20 sources)Serotonin and Norepinephrine Reuptake InhibitorStart: 02-28-2018 End: 79-66-9117vldi 1 tablet by mouth once dailyVenlafaxine 75 mg tablet Discontinued 75 MG PO Daily November 01, 2018 11:00pm March 06, 2023 8:01am depressionComment on above:Take one(1) tablet daily.Vitamin D3-Vitamin K2 (Mk4) (K2 Plus D3) 1,000-100 unit-mcg Tablet (20 sources)Start: 04-05-2023 End: 14-54-7687ewip 1 tablet by mouth once dailyVitamin D3-Vitamin K2 (Mk4) (K2 Plus D3) 1,000-100 unit-mcg Tablet Discontinued 1 TAB PO Daily April 05, 2023 12:00am June 26, 2023 11:50amStart: 04-05-2023 End: 92-36-0304clzt 1 tablet by mouth once dailyVitamin D3-Vitamin K2 (Mk4) (K2 Plus D3) 1,000-100 unit-mcg Tablet Discontinued 1 TAB PO Daily April 04, 2023 11:00pm June 26, 2023 10:50amStart: 92-35-1721dpjm 1 tablet by mouth once dailyVitamin D3-Vitamin K2 (Mk4) (K2 Plus D3) 1,000-100 unit-mcg Tablet Active 1 TAB PO Daily April 05, 2023 12:00amvitamin D3/vitamin K2, MK4, (K2 PLUS D3 ORAL) (20 sources) End: 78-13-6667vvlz 1 dose by mouth once dailyvitamin D3/vitamin [...] mg oral tablet (20 sources)Start: 10-03-2022 End: 95-25-5025ulmq 1 tablet by mouth once dailyVortioxetine 10 mg tablet Discontinued 10 MG PO Daily October 29, 2023 11:00pm August 20, 2024 8:54am FreeTextSi tablet Orally Once a day; Note: Source Status: Taking; Provider: Dixie Quintero RStart: 09-01-2022 End: 19-30-9507dlvk 1 tablet by mouth once dailyVortioxetine (Trintellix) 5 mg tablet Discontinued 5 MG PO Daily October 25, 2023 11:00pm October 30, 2023 12:38pmvortioxetine (TRINTELLIX) 5 mg tablet Take 10 mg by mouth. 0 Active Comment on above:Take 10 mg by mouth.Take 10 mg by mouth once daily. Problems Active Problems Problem ClassificationProblemDateDocumented DateEpisodic/ChronicAcute and unspecified renal failure (1 source)Acute kidney failure, unspecified; Translations: [JOSE MIGUEL (acute kidney injury) ([facility])]Onset: 01-32-4907YpuaburqIxvvaot disorders (20 sources)Mixed anxiety and depressive disorder; Translations: [Other specified anxiety disorders]Onset: 93-14-8998YxjjnruTfcjcz of colon (1 source)Personal history of other malignant neoplasm of large intestine; Translations: [History of colon cancer]Onset: 86-11-3242ZzawapjkEsciwk of rectum and anus (20 sources)Adenocarcinoma of rectum; Translations: [Malignant neoplasm of rectum]Onset: 994612-77-9009BscovdzOkzljs of rectum and anus (16 sources)History of malignant neoplasm of rectum; Translations: [Personal history of other malignant neoplasm of rectum, rectosigmoid junction, and anus] Onset: 773516-75-4745LgkodeavApngrbu dysrhythmias (20 sources)Atrial fibrillation; Translations: [Unspecified atrial fibrillation] Onset: 95-55-0532TntswwiOzxmyob dysrhythmias (1 source)Cardiac dysrhythmiasOnset: 89-88-0371Oktmyuha atherosclerosis and other heart disease (1 source)Coronary atherosclerosis and other heart diseaseOnset: 04-25-2017 Diabetes mellitus without complication (20 sources)Hyperglycemia; Translations: [Hyperglycemia, unspecified]Onset: 919712-82-1877MkypyanbUfpcbcgpu of lipid metabolism (20 sources)Hyperlipidemia; Translations: [Hyperlipidemia, unspecified]Onset: 57-99-8119BljxisyFvhlplsgxqzrra and diverticulitis (20 sources)Diverticular disease; Translations: [Diverticulosis of intestine, part unspecified, without perforation or abscess without bleeding]Onset: 060745-15-7562ScmhfztQgtnjtejov disorders (20 sources)Gastroesophageal reflux disease; Translations: [Gastro-esophageal reflux disease without esophagitis]Onset: 49-80-3820UlguolzQnfktyewu hypertension (20 sources)Essential (primary) hypertension; Translations: [Hypertensive disorder]Onset: 05-34-1722PeupudwArfrjod on above:history ofEssential hypertension (2 sources)Essential hypertensionOnset: 68-01-7092Ssxtx and electrolyte disorders (1 source)Hypo-osmolality and hyponatremia; Translations: [Hyponatremia]Onset: 89-78-4668EizkeouyImovuhqnktadmjqn hemorrhage (7 sources)Blood-tinged feces; Translations: [Melena]EpisodicGenitourinary symptoms and ill-defined conditions (20 sources)Female stress incontinence; Translations: [Stress incontinence (female) (male)]Onset: 86-53-8511AslnsqpBpaimzsurjvew symptoms and ill-defined conditions (2 sources)Dysuria; Translations: [Dysuria]96-85-0280NnklixtxNkkifabeps obstruction without hernia (20 sources)Small bowel obstruction; Translations: [Unspecified intestinal obstruction, unspecified as to partial versus complete obstruction]Onset: 08-31-2023 Resolved: 599931-02-8216DmsgmqqbTrehqjmameup breast conditions (3 sources)Fibrocystic disease of breast; Translations: [Diffuse cystic mastopathy of unspecified breast]Onset: 833023-37-2511CkktknnVpiivdcpsyy chest pain (20 sources)Chest pain; Translations: [Chest pain, unspecified]Onset: 07-25-2023 57-79-3149BpzhbzyjCwzqxjgzcat deficiencies (3 sources)Vitamin D deficiency; Translations: [Vitamin D deficiency, unspecified]Onset: 457261-41-7493NilvdsxZikotmoyranfrh (20 sources)Arthritis; Translations: [Unspecified osteoarthritis, unspecified site]Onset: 12-20-2005 Resolved: 42-33-4436QxknmgeEqvatrineftl (20 sources)Senile osteoporosis; Translations: [Age-related osteoporosis without current pathological fracture]Onset: 728294-19-1303GwjtwgaPhbdc aftercare (3 sources)Surgical follow-up; Translations: [Encounter for follow-up examination after completed treatment for conditions other than malignant neoplasm]79-11-8552QznilsgpDvzov connective tissue disease (3 sources)Muscle finding; Translations: [Myalgia, unspecified site]04-25-2023 EpisodicOther connective tissue disease (2 sources)Spasm; Translations: [Other muscle spasm]75-07-8735ApsnecvzOocdg connective tissue disease (1 source)Other muscle spasm; Translations: [Muscle spasm]Onset: 01-28-2025 EpisodicOther disorders of stomach and duodenum (1 source)Functional dyspepsia; Translations: [Dyspepsia]EpisodicOther gastrointestinal disorders (20 sources)Ileostomy present; Translations: [Ileostomy status]Onset: 08-26-2023 19-01-2670IujlpeuPgsyq gastrointestinal disorders (20 sources)Ileostomy bag changed; Translations: [Encounter for attention to ileostomy]Onset: 927343-34-2643CrazrkoMdsvg gastrointestinal disorders (3 sources)Ileostomy status; Translations: [Ileostomy status]Onset: 09-04-2023 49-10-3527ZkdcggmNsxjo gastrointestinal disorders (1 source)Encounter for attention to ileostomy; Translations: [Attention to ileostomy (HCC)]Onset: 95-67-5573JasyomsJtzaq gastrointestinal disorders (2 sources)Stoma finding; Translations: [Other artificial openings of gastrointestinal tract status]40-53-6395RwwcmbfPlkpq gastrointestinal disorders (6 sources)Passing flatus; Translations: [Flatulence]EpisodicOther [...] Translations: [Carpal tunnel syndrome, left upper limb]Onset: 565141-38-8988ZxlbmweGovva nervous system disorders (20 sources)Acute postoperative pain; Translations: [Other acute postprocedural pain]Onset: 479802-31-4149IotxnbcrXjpjw nervous system disorders (13 sources)Pain in limb; Translations: [Other acute postprocedural pain] 85-44-2996FvcjvdkiReklm non-traumatic joint disorders (1 source)Pain in right hip joint; Translations: [Pain in right hip]11-21-2023 EpisodicOther nutritional; endocrine; and metabolic disorders (1 source)Overweight in adulthood with body mass index of 25 or more but less than 30; Translations: [Overweight]EpisodicResidual codes; unclassified (4 sources)Asymptomatic menopausal state; Translations: [ASYMPTOMATIC MENOPAUSAL STATE]Onset: 78-02-5128DhamypuyWqfwards codes; unclassified (2 sources)Body mass index (BMI) 24.0-24.9, adult; Translations: [Body mass index (BMI) 24.0-24.9, adult]Onset: 22-69-9999YhsjkkvqNscxxdep codes; unclassified (9 sources)Postprocedural state finding; Translations: [Other specified postprocedural states]24-19-8090MgnhdsygXyfbwkju codes; unclassified (2 sources)Postmenopausal state; Translations: [Asymptomatic menopausal state] Onset: 861885-26-0046HxohrgvfUmqvvxahfpab (1 source)Obesity, unspecified / E66.9(ICD-9)Onset: 94-04-8743Lcssadulwsyl (1 source)Pure hypercholesterolemia, unspecified / E78.00(ICD-9)Onset: 07-92-8758Vlokzovwtibn (1 source)Family hx of ischem heart dis and oth dis of the circ sys / Z82.49(ICD-9)Onset: 19-44-9775Lwtxxvymezdu (1 source)Abnormal result of other cardiovascular function study / R94.39(ICD-9) Onset: 46-18-9544Ynqayevopgpo (2 sources)Colonoscopy Care CompanionOnset: 901429-29-4624Cwpcfkmvkwup (1 source)Physical TherapyOnset: 63-03-4611Kuylv infection (20 sources)COVID-19; Translations: [Pneumonia due to COVID-19 virus]Onset: 977676-37-6625Tjamlwiy Past or Other Problems Problem ClassificationProblemDateDocumented DateEpisodic/ChronicAbdominal pain (8 sources)Indigestion; Translations: [Epigastric pain]Onset: 11-06-2023 40-59-7620ArvlxgcwQgnbokpafp and other anemia (20 sources)Iron deficiency anemia; Translations: [Other iron deficiency anemias]Onset: 466828-35-5971VbirrlfxFyqxusxtcah (20 sources)Hemorrhoids; Translations: [Unspecified hemorrhoids]Onset: 791964-66-2795EynkxmdzHphgmrecrziqs and screening for infectious disease (20 sources)Patient encounter status; Translations: [Other specified vaccination]Onset: 11-06-2022 Resolved: 828587-42-2127NjhwshyuCayddgtwo of skin (20 sources)History of malignant melanoma of the skin; Translations: [Personal history of malignant melanoma ofskin]Onset: 181257-44-0488VwmkvzbtZtpvcz and vomiting (6 sources)Vomiting; Translations: [Vomiting, unspecified]Onset: 11-06-2023 33-98-2853PmyjbkchYzkmi aftercare (2 sources)Encounter for follow-up examination after completed treatment for malignant neoplasm; Translations:[Encounter for follow-up surveillance of rectal cancer]Onset: 80-63-2866LrgkvakoWlnzp circulatory disease (6 sources)H/O: atrial fibrillation; Translations: [Personal history of other diseases of circulatory system]Onset: 647412-07-6376KobbzqfxBezgt connective tissue disease (1 source)Pain in unspecified limb; Translations: [Pain in unspecified limb] Onset: 30-55-1706XjcnngslFjcgs connective tissue disease (1 source)Pain in right hand; Translations: [Pain in right hand]Onset: 18-79-5590QuhoyamnApfbk connective tissue disease (1 source)Pain in right finger(s); Translations: [Pain in right finger(s)]Onset: 55-47-0468GfowzhjaCzcqa gastrointestinal disorders (5 sources)Other specified symptoms and signs involving the digestive system and abdomen; Translations: [Othersymptoms involving digestive system]Onset: 970096-41-9137ApabvxonFeifw nervous system disorders (2 sources)Other acute postprocedural pain; Translations: [Post-op pain]Onset: 31-73-7275DiysjclyYlqxl non-traumatic joint disorders (1 source)Pain in right kneeOnset: 02-11-2022 Resolved: 33-37-8757KshqjhrcColoh non-traumatic joint disorders (1 source)Pain in left kneeOnset: 02-11-2022 Resolved: 55-97-8549BjttokoxNceao screening for suspected conditions (not mental disorders or infectious disease) (6 sources)Cardiovascular stress test abnormal; Translations: [Other nonspecific abnormal results of function study of cardiovascular system]Onset: 11-03-2022 Resolved: 86-35-9470WokrltpaMsqpekfz codes; unclassified (5 sources)Body mass index 20-24 - normal; Translations: [Body mass index (BMI) 24.0-24.9, adult]Onset: 581628-95-8172UzlseugiWljmvuem codes; unclassified (20 sources)Other specified postprocedural states; Translations: [Other postprocedural status]Onset: 348788-81-1682CudtjlahEwyg and subcutaneous tissue infections (20 sources)Cellulitis; Translations: [Cellulitis, unspecified]Onset: 05-22-2024 23-85-9710PxozvlgxZtmobvdaucbq (1 source)Never smoked tobacco; Translations: [Never a smoker]Unclassified (1 source)Onset: 260488-13-8900Jwiqdbg tract infections (7 sources)Acute urinary tract infection; Translations: [Urinary tract infection, site not specified]Onset: 764541-45-1062Kavexjas Results Test NameValueInterpretationReference GdfzaSrksaunjD1I with Estimated Average Gluon 81-69-1388Vzveqnz [Mass/Vol]114 mg/dLNormalThe [facility] Comment on above:Result Comment: PERFORMED BY: [place] [address] PATHOLOGIST MARRIAGE AND FAMILY THERAPIST CHRISTA ABREU M.D.Performed By: #### CMP, LIPID, TSH3, CBC, A1C [facility] #### [place] [address] GLBHlI0f (Bld) [Mass fraction]5.6 %Normal4.3-5.6The [facility] Physician GroupComment on above:Result Comment: Increased risk for diabetes: 5.7 - 6.4 diabetes: >6.4 glycemic control for adults with diabetes: <7.0Performed By: #### CMP, LIPID, TSH3, CBC, A1C WTH eA #### [facility] [address] [place] [address] USAAlanine aminotransferase [Enzymatic activity/volume] in Serum or PlasmaOrdered By: Charles Bazzi on 41-76-4040YXB [Catalytic activity/Vol] 12 U/LNormal7-52Parkwood HospitalComment on above:Performed By: #### CMP, LIPID, TSH3, CBC, A1C WTH eA #### [facility] [address] [place] [id number] USAAlbumin [Mass/volume] in Serum or Plasma by Bromocresol green (BCG) dye binding methoOrdered By: Charles Bazzi on 60-23-0476Itawwig BCG dye [Mass/Vol]4.1 g/dL3.5-5.7FMcCullough-Hyde Memorial HospitalAlkaline phosphatase [Enzymatic activity/volume] in Serum or PlasmaOrdered By: Charles Bazzi on 64-92-8692AWD [Catalytic activity/Vol]84 U/ZKclxuk52-208BrrgsxudlParkwood HospitalComment on above:Performed By: #### CMP, LIPID, TSH3, CBC, A1C WTH eA #### [facility] [address] [place] [address] USAAspartate aminotransferase [Enzymatic activity/volume] in Serum or PlasmaOrdered By: Charles Bazzi on 81-63-3648LNV [Catalytic activity/Vol] 14 U/KVtqgkn02-08HowmnppegParkwood HospitalComment on above:Performed By: #### CMP, LIPID, TSH3, CBC, A1C WTH eA #### [facility] [address] [place] [address] USABasophils [#/volume] in Blood by Automated countOrdered By: Charles Bazzi on 28-08-2715Yyvhjejsq (Bld) [#/Vol]0.1 10*3/uLNormal0.0-0.2 Parkwood HospitalComment on above:Result Comment: PERFORMED BY: [place] [address] PATHOLOGIST MARRIAGE AND FAMILY THERAPIST CHRISTA ABREU M.D.Performed By: #### CMP, LIPID, TSH3, CBC, A1C WTH eA #### [facility] [address] [place] [id number] USABasophils/100 leukocytes in Blood by Automated count Ordered By: Charles Bazzi on 53-75-9048Uvyajaluu/100 WBC (Bld)0.8 %Normal.Parkwood HospitalComment on above:Performed By: #### CMP, LIPID, TSH3, CBC, A1C WTH eA #### [facility] [address] [place] [address] USABilirubin.total [Mass/volume] in Serum or PlasmaOrdered By: Charles Bazzi on 75-37-7302Dfpceejoc [Mass/Vol]0.6 mg/dLNormal0.3-1.0Parkwood HospitalComment on above:Performed By: #### CMP, LIPID, TSH3, CBC, A1C WTH eA #### [place] [address] USACalcium [Mass/volume] in Serum or PlasmaOrdered By: Charles Bazzi on 49-97-7892Erznzcp [Mass/Vol]8.9 mg/dLNormal8.6-10.3FMcCullough-Hyde Memorial HospitalComment on above:Performed By: #### CMP, LIPID, TSH3, CBC, A1C WTH eA #### [place] [address] USACarbon dioxide, total [Moles/volume] in Serum or Plasma Ordered By: Charles Bazzi on 68-15-3222ZS4 [Moles/Vol]25.2 mmol/SCjnvqk69.0-31.0 Parkwood HospitalComment on above:Performed By: #### CMP, LIPID, TSH3, CBC, A1C WTH eA #### [place] [id number] USAChloride [Moles/volume] in Serum or PlasmaOrdered By: Charles Bazzi on 63-77-8293Deananfh [Moles/Vol]105 mmol/ITuhptd01-318RcdongfceParkwood HospitalComment on above:Performed By: #### CMP, LIPID, TSH3, CBC, A1C WT eA #### [facility] [address] [place] [address] USACholesterol [Mass/volume] in Serum or PlasmaOrdered By: Charles Bazzi on 97-95-5681Wdifgtvczrf [Mass/Vol]160 mg/oAWankdd780-078TipyoiwdeParkwood HospitalComment on above:Chol less than 200 mg/dl low riskChol 201-239 mg/dl borderline riskChol 240 mg/dl and greater high riskResult Comment: Chol less than 200 mg/dl low risk Chol 201-239 mg/dl borderline risk Chol 240 mg/dl and greater high riskPerformed By: #### CMP, LIPID, TSH3, CBC, A1C WT eA #### [facility] [address] [place] [address] USACholesterol in HDL [Mass/volume] in Serum or PlasmaOrdered By: Charles Bazzi on 22-82-2810Zmvcfngsfte in HDL [Mass/Vol]49 mg/kUDzrknx13-76 Parkwood HospitalComment on above:HDL CHOL ATP-III CLASSIFICATION Cardiovascular RiskHDL > or equal to 60 mg/dL LOWHDL < 40 mg/dL HIGHResult Comment: HDL CHOL ATP-III CLASSIFICATION Cardiovascular Risk HDL > or equal to 60 mg/dL LOW HDL < 40 mg/dL HIGHPerformed By: #### CMP, LIPID, TSH3, CBC, A1C WT eA #### [facility] [address] [place] [address] USACholesterol in LDL Calc [Mass/Vol]Ordered By: Charles Bazzi on 87-05-0601Owgozgrrknc in LDL [Mass/Vol]88 mg/dL0-100Parkwood HospitalComment on above:LDL ATP III CLASSIFICATIONLDL less than 100 mg/dL OptimalLDL 100-129 mg/dL Near or above qyssaxeFUE371-415 mg/dL Borderline highLDL 160-189 mg/dL HighLDL greater than 189 mg/dL Very highCholesterol in VLDL Calc [Mass/Vol]Ordered By: Charles Bazzi on 11-71-4172Xurqxghwnhc in VLDL [Mass/Vol]22 mg/dLParkwood HospitalComplete Blood Count Auto Diffon 33-59-5430Xyey Corpuscular HGB Conc33.3 g/wDMyrays06.0-35.0The [facility] Physician GroupComment on above:Performed By: #### CMP, LIPID, TSH3, CBC, A1C WTH eA #### [facility] [address] [place] [address] USANRBC%0.1 /100{WBC}Normal0-0.5The [facility] Comment on above:Performed By: #### CMP, LIPID, TSH3, CBC, A1C WTH eA #### [facility] [address] [place] [address] USAWhite Blood Count7.1 [CFU]/mLNormal3.8-11.6The [facility] Physician [facility]ner Medical CenterComment on above:Performed By: #### CMP, LIPID, TSH3, CBC, A1C WTH eA #### [place] [address] USAComprehensive Metabolic Panelon 80-76-4555Wuvyhpz [Mass/Vol]4.1 g/dLNormal3.5-5.7The [facility] Physician [facility]ner Medical CenterComment on above: Performed By: #### CMP, LIPID, TSH3, CBC, A1C WTH eA #### [place] [address] USAGFR/1.73 sq M.predicted MDRD (S/P/Bld) [Vol rate/Area] 39.212 mL/min/{1.73_m2}NormalThe [facility] Physician [facility] Medical CenterComment on above: Performed By: #### CMP, LIPID, TSH3, CBC, A1C WTH eA #### [facility] [address] [place] [address] USACreatinine [Mass/volume] in Serum or PlasmaOrdered By: Charles Bazzi on 14-99-6881Itkannizhi [Mass/Vol]1.43 mg/dLHigh0.60-1.20Parkwood HospitalComment on above:Performed By: #### CMP, LIPID, TSH3, CBC, A1C WTH eA #### [facility] [address] [place] [address] USAEosinophils [#/volume] in Blood by Automated countOrdered By: Charles Bazzi on 01-05-2932Tvqdbhvrezw (Bld) [#/Vol]0.2 10*3/uLNormal0.0-0.45 Parkwood HospitalComment on above:Performed By: #### CMP, LIPID, TSH3, CBC, A1C WTH eA #### [facility] [address] [place] [id number] USAEosinophils/100 leukocytes in Blood by Automated count Ordered By: Charles Bazzi on 81-91-1020Lmsghbqnqyc/100 WBC (Bld)3.2 %Normal. Parkwood HospitalComment on above:Performed By: #### CMP, LIPID, TSH3, CBC, A1C WTH eA #### [place] [address] USAErythrocyte distribution width [Ratio] by Automated count Ordered By: Charles Bazzi on 24-09-4804Icdmepkborp distribution width (RBC) [Ratio] 13.9 %Pqkzna59.9-15.3FMcCullough-Hyde Memorial HospitalComment on above:Performed By: #### CMP, LIPID, TSH3, CBC, A1C WTH eA #### [place] [id number] USAErythrocytes [#/volume] in Blood by Automated countOrdered By: Charles Bazzi on 79-09-2429XTH (Bld) [#/Vol]3.50 10*6/uLLow3.60-5.00Parkwood HospitalComment on above:Performed By: #### CMP, LIPID, TSH3, CBC, A1C WTH eA #### [place] [address] USAGlomerular filtration rate [Volume Rate/Area] in Serum, Plasma or Blood by CreatinineOrdered By: Charles Bazzi on 95-88-7288Iwnynslajm filtration rate [Volume Rate/Area] in Serum, Plasma or Blood by Rhzooduurk16.212 mL/MinParkwood HospitalGlucose [Mass/volume] in Serum or Plasma Ordered By: Charles Bazzi on 27-01-2027Odcbzjy [Mass/Vol]79 mg/bVVodwyl00-849 Parkwood HospitalComment on above:ADA recommended reference rangeRandom Glucose Reference Range is dependent on time and content of last meal. Glucose of more than 200 mg/dL in a nonstressed, ambulatory subject supports the diagnosisof Diabetes Mellitus.Result Comment: Random Glucose Reference Range is dependent on time and content of last meal. Glucose of more than 200 mg/dL in a nonstressed, ambulatory subject supports the diagnosis of Diabetes Mellitus. ADA recommended reference rangePerformed By: #### CMP, LIPID, TSH3, CBC, A1C WT eA #### [facility] [address] [place] [id number] USAHematocrit [Volume Fraction] of Blood by Automated count Ordered By: Charles Bazzi on 51-00-2870Qnjziipnlo (Bld) [Volume fraction]30.6 %Low 34.0-46.4FMcCullough-Hyde Memorial HospitalComment on above:Performed By: #### CMP, LIPID, TSH3, CBC, A1C WT eA #### [facility] [address] [place] [address] USAHemoglobin [Mass/volume] in BloodOrdered By: Charles Bazzi on 90-65-5494Axiglahthl (Bld) [Mass/Vol]10.2 g/dLLow11.8-15.4FMcCullough-Hyde Memorial HospitalComment on above:Performed By: #### CMP, LIPID, TSH3, CBC, A1C WTH eA #### [facility] [address] [place] [id number] USALeukocytes [#/volume] corrected for nucleated erythrocytes in Blood by Automated counOrdered By: Charles Bazzi on 79-98-0572GQW corrected for nucl RBC Auto (Bld) [#/Vol]7.1 10*3/uL3.8-11.6FMcCullough-Hyde Memorial Hospital Leukocytes [#/volume] in Blood by Automated countOrdered By: Charles Bazzi on 88-28-2282SVH (Bld) [#/Vol]7.1 10*3/uLNormal3.8-11.6FMcCullough-Hyde Memorial HospitalComment on above:Performed By: #### CMP, LIPID, TSH3, CBC, A1C WTH eA #### [facility] [address] [place] [address] USALipid Panelon 21-98-5652ZSI Cholesterol,Hvsojxksfi14 mg/dL Normal0-100The [facility] Physician [facility]ner Medical CenterComment on above:Result Comment: LDL ATP III CLASSIFICATION LDL less than 100 mg/dL Optimal LDL 100-129 mg/dL Near or above optimal LDL 130-159 mg/dL Borderline high LDL 160-189 mg/dL High LDL greater than 189 mg/dL Very highPerformed By: #### CMP, LIPID, TSH3, CBC, A1C WTH eA #### [facility] [address] [place] [id number] USATriglyceride w/Suxgnb571 mg/dLNormal0-149The [facility] Physician GroupComment on above:Result Comment: TRIG ATP III CLASSIFICATION TRIG less than 150 mg/dL Normal TRIG 150-199 mg/dL Borderline high TRIG 200-500 mg/dL High TRIG greater than 500 mg/dL Very high Standard traceable to the Center for Disease Conrtrol and Prevention (CDC) test method.Performed By: #### CMP, LIPID, TSH3, CBC, A1C WTH eA #### [facility] [address] [place] [id number] USAVLDL MEXGGYWJZRC14 mg/dLNormalThe [facility] Physician GroupComment on above:Performed By: #### CMP, LIPID, TSH3, CBC, A1C WTH eA #### [facility] [address] [place] [address] USALymphocytes [#/volume] in Blood by Automated countOrdered By: Charles Bazzi on 49-38-7415Amoontwvizp (Bld) [#/Vol]1.6 10*3/uLNormal1.00-4.8 Parkwood HospitalComment on above:Performed By: #### CMP, LIPID, TSH3, CBC, A1C WTH eA #### [facility] [address] [place] [address] USALymphocytes/100 leukocytes in Blood by Automated count Ordered By: Charles Bazzi on 27-82-2297Qqqiiwbtski/100 WBC (Bld)22.3 %Normal. Parkwood HospitalComment on above:Performed By: #### CMP, LIPID, TSH3, CBC, A1C WTH eA #### [facility] [address] [Entitic mass] by Automated countOrdered By: Charles Bazzi on 71-33-6964SGW (RBC) [Entitic mass]29.0 lkLanucm19.7-34.3FMcCullough-Hyde Memorial HospitalComment on above:Performed By: #### CMP, LIPID, TSH3, CBC, A1C WTH eA #### [address] Auto (RBC) [Mass/Vol]Ordered By: Charles Bazzi on 20-99-9616HRZY (RBC) [Mass/Vol]33.3 g/dL32.0-35.0[facility] [Entitic volume] by Automated countOrdered By: Charles Bazzi on 69-92-6905CKL (RBC) [Entitic vol]87.2 rRZisjax15-200YmwycqtfbParkwood HospitalComment on above:Performed By: #### CMP, LIPID, TSH3, CBC, A1C WTH eA #### [place] [address] USAMonocytes [#/volume] in Blood by Automated countOrdered By: Charles Bazzi on 97-75-4835Pgvovkvys (Bld) [#/Vol]0.7 10*3/uLNormal0.0-0.8 Parkwood HospitalComment on above:Performed By: #### CMP, LIPID, TSH3, CBC, A1C WTH eA #### [facility] [address] [place] [address] USAMonocytes/100 leukocytes in Blood by Automated count Ordered By: Charles Bazzi on 01-17-4375Rcrclsffq/100 WBC (Bld)10.6 %Normal. Parkwood HospitalComment on above:Performed By: #### CMP, LIPID, TSH3, CBC, A1C WTH eA #### [address] [place] [address] USANeutrophils [#/volume] in Blood by Automated countOrdered By: Charles Bazzi on 90-83-6165Wnwtxidjnxw (Bld) [#/Vol]4.5 10*3/uLNormal1.8-7.7 Parkwood HospitalComment on above:Performed By: #### CMP, LIPID, TSH3, CBC, A1C WTH eA #### [facility] [address] [place] [id number] USANeutrophils/100 leukocytes in Blood by Automated count Ordered By: Charles Bazzi on 88-22-9006Xfshygazdzs/100 WBC (Bld)63.1 %Normal. Parkwood HospitalComment on above:Performed By: #### CMP, LIPID, TSH3, CBC, A1C WTH eA #### [place] [address] USANo Panel InformationOrdered By: Charles Bazzi on 05-15-2025 Pharmacy Creatinine Clearance (ChemN/[facility] HospitalNucleated erythrocytes [Presence] in Blood by Automated countOrdered By: Charles Bazzi on 66-92-5824Slincoiha RBC Auto Ql (Bld)0.1 /100{WBC}0-0.5FMcCullough-Hyde Memorial HospitalPlatelet mean volume [Entitic volume] in Blood by Automated count Ordered By: Charles Bazzi on 17-62-3077Ykkxwfag mean volume (Bld) [Entitic vol]7.1 fLNormal6.3-10.7FMcCullough-Hyde Memorial HospitalComment on above:Performed By: #### CMP, LIPID, TSH3, CBC, A1C WTH eA #### [place] [id number] USAPlatelets [#/volume] in Blood by Automated countOrdered By: Charles Bazzi on 33-92-3803Uudiniumn (Bld) [#/Vol]385 10*3/jXXhgliv056-799 Parkwood HospitalComment on above:Performed By: #### CMP, LIPID, TSH3, CBC, A1C WTH eA #### [place] [id number] USAPotassium [Moles/volume] in Serum or PlasmaOrdered By: Charles Bazzi on 26-69-3785Aaadfocry [Moles/Vol]4.1 mmol/LNormal3.5-5.1FMcCullough-Hyde Memorial HospitalComment on above:Performed By: #### CMP, LIPID, TSH3, CBC, A1C WTH eA #### [facility] [address] [place] [address] USAProtein [Mass/volume] in Serum or PlasmaOrdered By: Charles Bazzi on 22-84-7703Juahrjd [Mass/Vol]7.0 g/dLNormal6.4-8.9Parkwood HospitalComment on above:Performed By: #### CMP, LIPID, TSH3, CBC, A1C WTH eA #### [facility] [address] [place] [address] USASerum globulin measurement by calculation (mass/volume) Ordered By: Charles Bazzi on 80-58-2777Ijhjoekx (S) [Mass/Vol]2.9 g/dLNormal Parkwood HospitalComment on above:Performed By: #### CMP, LIPID, TSH3, CBC, A1C WT eA #### [facility] [address] [place] [address] USASerum or plasma albumin/globulin mass ratioOrdered By: Charles Bazzi on 33-86-3238Srpsvxi/Globulin [Mass ratio]1.4 {ratio}NormalParkwood HospitalComment on above:Performed By: #### CMP, LIPID, TSH3, CBC, A1C WTH eA #### [facility] [address] [place] [address] USASerum or plasma anion gap determinationOrdered By: Charles Bazzi on 55-31-9517Qyolh gap [Moles/Vol]14.9 mmol/LNormal6.0-15.0Parkwood HospitalComment on above:Performed By: #### CMP, LIPID, TSH3, CBC, A1C WTH eA #### [facility] [address] [place] [address] USASerum or plasma total cholesterol/high density lipoprotein (HDL) cholesterol mass ratOrdered By: Charles Bazzi on 05-15-2025 Cholesterol.total/Cholesterol in HDL [Mass ratio]3.3 {ratio}Normal<5.0Parkwood HospitalComment on above:Performed By: #### CMP, LIPID, TSH3, CBC, A1C [facility] eA #### [facility] [address] [place] [address] USASodium [Moles/volume] in Serum or PlasmaOrdered By: Charles Bazzi on 34-86-3367[place] [Moles/Vol]141 mmol/RVeggmi493-286NgdgprpmgParkwood HospitalComment on above:Performed By: #### CMP, LIPID, TSH3, CBC, A1C [facility] eA #### [place] [address] USAThyrotropin [Units/volume] in Serum or PlasmaOrdered By: Charles Bazzi on 38-55-5578EOL Qn1.44 m[IU]/LNormal0.45-5.33Parkwood HospitalComment on above:Result Comment: PERFORMED BY: [place] [address] PATHOLOGIST MARRIAGE AND FAMILY THERAPIST CHRISTA ABREU M.D.Performed By: #### CMP, LIPID, TSH3, CBC, A1C [facility] eA #### [place] [id number] USATriglyceride [Mass/volume] in Serum or PlasmaOrdered By: Charles Bazzi on 86-40-7383Whfgumhgbfmu [Mass/Vol]113 mg/dL0-149Parkwood HospitalComment on above:TRIG ATP III CLASSIFICATIONTRIG less than 150 mg/dL NormalTRIG 150-199 mg/dL Borderline highTRIG 200-500 mg/dL High TRIG greater than 500 mg/dL Very highStandard traceable to the Center for Disease Co nrtrol and Prevention (CDC) test method.Urea nitrogen [Mass/volume] in Serum or PlasmaOrdered By: Charles Bazzi on 42-51-8041Trkd nitrogen [Mass/Vol]27 mg/dLHigh 7-25Parkwood HospitalComment on above:Performed By: #### CMP, LIPID, TSH3, CBC, A1C [facility] eA #### [facility] [address] [place] [id number] [facility] CENTERCNSouth [facility] 03-18-8766LMGAPunpjhepq (RADTSA) EVAN GILL ([id number]) 1955 F Date Time Provider Department 04/16/25 [...] 11/06/2023 Encounter Status:Closed by PRACHI GILL [facility]/25[facility] POST[facility] EVALon [id number] POSTPROC EVALHNO ID: [id number] Author: ZOHAIB NICOLE MD Service: Anesthesiology Author [...] Scheduled Providers: Laisha Singer MD; Alex Snow APRN.KEG WASHER; Zohaib Nicole MD; Gricel Aguilar RN Responsible [...] March 13, 2025 TIME: 11:45 AM CSN: [id number] Army Community Hospital PRE-OPon [id number] PRE-OPHNO ID: [id number] Author: ZOHAIB NICOLE MD Service: Anesthesiology Author Type: Anesthesiologist Type: Anesthesia Preprocedure Evaluation Filed: 03/13/2025 08:25 Note Text: ANESTHESIOLOGY DAY OF SURGERY NOTE : 1955 Procedure Information Date/Time: 03/13/25 0830 Scheduled providers: Laisha Singer MD; Alex Snow APRN.KEG WASHER; Zohaib Nicole MD; Gricel Aguilar RN Procedure: [...] and consent discussed: yes. Patient / Responsible Constitution Party agrees to proceed: yes Patient / [...] March 13, 2025 TIME: 8:24 AM CSN: [id number] HospitalColonoscopyon 03-13-20[facility] Patient Name: Evan Gill Procedure Date: 03/13/2025 8:30 AM Date of : 1955 Admit Type: Outpatient Age: 69 Room: [place] [address] Gender: Female Note Status: Finalized Attending MD: Laisha Singer MD, [id number] Procedure: Colonoscopy Indications: Surveillance: Personal history of [...] and serrated colon polyps CPT copyright 2020 [employer]. All rights reserved. The codes documented in this report are preliminary and upon cad librarian review may be revised to meet current [...] AM Estimated Blood Loss: Estimated blood loss: none.[facility]Colonoscopy [facility] observationon [id number] Patient Name: Evan Gill Procedure Date: 03/13/2025 8:30 AM Date of : 1955 Admit Type: Outpatient Age: 69 Room: [place] [address] Gender: Female Note Status: Finalized Attending MD: Laisha Singer MD, [id number] Procedure: Colonoscopy Indications: Surveillance: Personal history of [...] screening; colonoscopy on i (more content not included)...PROVATIONTogus Va Medical CenterRadiology Study observation (narrative)[facility] PHYSICALon [id number] PHYSICALHNO ID: [id number] Author: LAISHA SINGER MD Service: Colorectal Author [...] ENDOSCOPY HISTORY AND PHYSICAL EXAM Evan Demetrius Allie [id number] Subjective HPI: This is a 69 year [...] been signed Bonny Duque MD 03/13/2025 7:46 [facility] CALCIUMon 15-67-3033Vkhxvvz [Mass/Vol]9.1 mg/dL8.5 - 10.1 mg/dLNOSamaritan HospitalGlomerular filtration rate (GFR) estimation in non- AmericanOrdered By: Cathleen Cooley on 26-84-9015GPB/1.73 sq M.predicted among non-blacks MDRD (S/P/Bld) [Vol rate/Area]mL/min/{1.73_m2}>=60 mL/min/1.73m 2 [facility] HospitalLaboratory - Chemistry and Chemistry - challengeOrdered By: Cathleen Cooley on 98-10-5413Ybsojmw [Mass/Vol]9.1 mg/dL8.5-10.1 [facility] HospitalCreatinine [Mass/Vol]0.71 mg/dL0.55-1.02 [facility] HospitalGFR/1.73 sq M.predicted MDRD (S/P/Bld) [Vol rate/Area]mL/min/{1.73_m2}>=60 mL/min/1.73m 2FMcCullough-Hyde Memorial HospitalNo Panel Informationon [id number] HealthcareTB CREATININEon 79-95-7177Obejweplzg [Mass/Vol]0.71 mg/dL0.55 - 1.02 mg/dLPutnam County Memorial Hospital GFR/1.73 sq M.predicted CKD-EPI (S/P/Bld) [Vol rate/Area]>60>=60 mL/min/1.73m 2 Put[facility] County Memorial HospitalTB EGFR-NON AF CITIZEN OF [place]>60>=60 mL/min/1.73m 2NSaint John's Saint Francis HospitalCNOV on 60-14-5541KJCDXrmwvi Visit (CORSAV) EVAN GILL ([id number]) 1955 F Date Time Provider Department 02/20/25 [...] Review of prior operative (more content not included)...NormalVan Wert County HospitalCNOVSPon 15-98-2075JOEHRBGahzi (SP) Office (HEMAVN) EVAN GILL ([id number]) 1955 F Date Time Provider Department 02/20/25 2:00 PM TAPAN CORONA During your visit today, we recorded the following information about you: Temperature Pulse Respiration Blood pressure 99.4 degrees 67/minute 18/minute 121/78 Weight Height 66.3 kg 1.626 m Tapan Corona MD 02/20/2025 2:27 PM Signed PATIENT NAME: Evan Gill CLINIC NO.: [id number] ATTENDING PHYSICIAN: Tapan Corona MD DATE OF [...] AST (U/L) Date Value (more content not included)...NormalVan Wert County Hospital CNTHERAPYon 66-85-1462XELUIYRCZEA/PT/Speech [facility] EVAN GILL ([id number]) 1955 F Date Time Provider Department 02/19/25 1:00 PM [facility] Date Time Provider Department [place] 02/19/2025 1:00 PM [id number] [facility] Reason for Visit: Physical Therapy [503] Primary [...] tablet Take 81 mg by mouth once daily.NormalMount St. [facility] W Auto Differential panel (Bld)on [id number] (Bld) [#/Vol]0.04 10*3/uLNINF [facility] Va Medical CenterBasophils/100 WBC (Bld)0.7 %[facility] Va Medical CenterDifferential cell count method Nom (Bld)AutoCleveland ClinicEosinophils (Bld) [#/Vol]0.25 10*3/uL NINFCleveland ClinicEosinophils/100 WBC (Bld)4.1 %[facility] Va Medical CenterErythrocyte distribution width (RBC) [Ratio]13.5 %11.5 - 15.0 %[facility] Va Medical CenterHematocrit (Bld) [Volume fraction]34.2 %Low36.0 - 46.0 %[facility] Va Medical CenterHemoglobin (Bld) [Mass/Vol]11.1 g/dLLow11.5 - 15.5 g/dLTogus Va Medical CenterImmature granulocytes (Bld) [#/Vol]0.04 10*3/uLNINFTogus Va Medical CenterImmature granulocytes/100 WBC (Bld) 0.7 %[facility] Medical CenterInterpretation and review of laboratory resultsAbnormal [facility] Va Medical CenterLymphocytes (Bld) [#/Vol]1.52 10*3/uLTogus Va Medical Center Lymphocytes/100 WBC (Bld)25.1 %[facility]tering Memorial HospitalH (RBC) [Entitic mass]29 pg26.0 - 34.0 pgClevelSt. Luke's HospitalHC (RBC) [Mass/Vol]32.5 g/dL30.5 - 36.0 g/dLKettering Memorial HospitalV (RBC) [Entitic vol]89.3 fL80.0 - 100.0 fLCleveland ClinicMonocytes (Bld) [#/Vol]0.51 10*3/uLNINFTogus Va Medical CenterMonocytes/100 WBC (Bld)8.4 % [facility] Va Medical CenterNeutrophils (Bld) [#/Vol]3.69 10*3/uLTogus Va Medical Center Neutrophils/100 WBC (Bld)61 %[facility] Medical CenterNucleated RBC (Bld) [#/Vol]NINF [facility] Medical CenterNucleated RBC/100 WBC (Bld) [Ratio]0 %/100 WBCTogus Va Medical Center Platelet mean volume (Bld) [Entitic vol]8.5 fLLow9.0 - 12.7 fLCPike Community Hospital Platelets (Bld) [#/Vol]266 10*3/uLTogus Va Medical CenterRBC (Bld) [#/Vol]3.83 10*6/uL Low3.90 - 5.20 m/[facility] HospitalWBC (Bld) [#/Vol]6.05 10*3/[facility] ClinicBasophils (Bld) [#/Vol]0.04 10*3/uLNormal<0.11CAdena Fayette Medical CenterCombeaumont hospital on above:Order Comment: Specimen Type: BLOOD SPECIMEN Ordering Facility: [facility] Address: [address] [place], [place] [address]Performed By: #### [id number] #### [facility] CLIA [id number] [address] [place] [id number]/100 WBC (Bld)0.7 %NormalVan Wert [facility] Hospital Comment on above:Order Comment: Specimen Type: BLOOD SPECIMEN Ordering Facility: [facility] Address: [address] [place], [place] [address]Performed By: #### [id number] #### [facility] CLIA [id number] [address] [place] [id number] cell count method Nom (Bld)AutoNormalCAdena [facility] CenterCombeaum[facility] on above:Order Comment: Specimen Type: BLOOD SPECIMEN [facility] [facility]OSP[facility] Address: [address] [place], [place] [address]Performed By: #### 01474-9 #### [facility] CLIA [id number] [address] [place] [address] 45085Nkudyllbqeq (Bld) [#/Vol]0.25 10*3/uLNormal<0.46[facility] on above:Order Comment: Specimen Type: BLOOD SPECIMEN Ordering Facility: [facility] Address: [address] [place], [place] [address]Performed By: #### 85297-2 #### [facility] CLIA [id number] [address] [place], [place] [address]Cevdhgtimvv/100 WBC (Bld)4.1 %NormalVan Wert County Hospital Comment on above:Order Comment: Specimen Type: BLOOD SPECIMEN Ordering Facility: [facility] Address: [address] [place], [place] [address]Performed By: #### 15296-6 #### [facility] CLIA [id number] [address] [place] [address] 41981Hqgaqvfommd distribution width (RBC) [Ratio]13.5 %Normal 11.5-15.0[facility] on above:Order Comment: Specimen Type: BLOOD SPECIMEN Ordering Facility: [facility] Address: [address] [place], [place] [address]Performed By: #### 54508-6 #### [facility] CLIA [id number] [address] [place] [address] 63317Foxnbnzkdw (Bld) [Volume fraction]34.2 %Low36.0-46.0[facility] on above:Order Comment: Specimen Type: BLOOD SPECIMEN [facility] Facility[facility] Address: [address] [place], [place] [address]Performed By: #### 38651-7 #### [facility] CLIA [id number] [address] [place] [address] 19376Ekhqgskwjw (Bld) [Mass/Vol]11.1 g/dLLow11.5-15.5[facility] on above:Order Comment: Specimen Type: BLOOD SPECIMEN [facility] Address: [address] [place], [place] [address]Performed By: #### 96065-0 #### [facility] CLIA [id number] [address] [place], [place] [address]Zpkvzvbr granulocytes (Bld) [#/Vol]0.04 10*3/uLNormal<0.10 [facility] on above:Order Comment: Specimen Type: BLOOD SPECIMEN [facility] Address: [address] [place], [place] [address]Performed By: #### 53799-9 #### [facility] CLIA [id number] [address] [place] [address] 29666Bkthypyr granulocytes/100 WBC (Bld)0.7 %NormalSumma Health Wadsworth - Rittman Medical Center on above:Order Comment: Specimen Type: BLOOD SPECIMEN [facility] Address: [address] [place], [place] [address]Performed By: #### 27849-4 #### [facility] CLIA [id number] [address] [place] [address] 88869Wfjpshvunat (Bld) [#/Vol]1.52 10*3/uLNormal1.00-4.00[facility] on above:Order Comment: Specimen Type: BLOOD SPECIMEN [facility] Address: [address] [place], [place] [address]Performed By: #### 44271-1 #### [facility] CLIA [id number] [address] [place] [address] 74403Nsxzsofhrhd/100 WBC (Bld)25.1 %NormalSumma Health Wadsworth - Rittman Medical Center on above:Order Comment: Specimen Type: BLOOD SPECIMEN [facility] Address: [address] [place], [place] [address]Performed By: #### 43604-5 #### [facility] CLIA [id number] [address] [place] [address] 59664IGX (RBC) [Entitic mass]29.0 qzMpgrwo94.0-34.0[facility] ClevelandComment on above:Order Comment: Specimen Type: BLOOD SPECIMEN Order[facility] Address: [address] [place] [address] [place], [place] [address]Performed By: #### 41872-0 #### [facility] CLIA [id number] [address] [place] [address] 39313XCDV (RBC) [Mass/Vol]32.5 g/wPSomjmu74.5-36.0[facility] on above:Order Comment: Specimen Type: BLOOD SPECIMEN Ordering [facility] Address: [address] [place], [place] [address]Performed By: #### 53412-1 #### [facility] CLIA [id number] [address] [place] [address] 12315IUT (RBC) [Entitic vol]89.3 xPYpypcc85.0-100.0[facility] County HospitalComment on above:Order Comment: Specimen Type: BLOOD SPECIMEN [facility]ing [facility] Address: [address] [place], [place] [address]Performed By: #### 51572-6 #### [facility] CLIA [id number] [address] [place] [address] 40087Ngfpgcsbf (Bld) [#/Vol]0.51 10*3/uLNormal<0.87[facility] HospitalCombeaumont hospital on above:Order Comment: Specimen Type: BLOOD SPECIMEN Ordering Facility: [facility] Address: [facility], [place] [address]Performed By: #### 25295-3 #### [facility] CLIA [id number] [address] [place] [address] 06573Njakniuyd/100 WBC (Bld)8.4 %NormalCleShelby Memorial Hospital Comment on above:Order Comment: Specimen Type: BLOOD SPECIMEN [facility]ing [facility] Address: [address] [place], [place] [address]Performed By: #### 81743-1 #### [facility] CLIA [id number] [address] [place] [address] 95676Xipmyijidgr (Bld) [#/Vol]3.69 10*3/uLNormal1.45-7.50[facility] on above:Order Comment: Specimen Type: BLOOD SPECIMEN Ordering [facility] Address: [address] [place], [place] [address]Performed By: #### 10915-1 #### [facility] CLIA [id number] [address] [place] [address] 31045Ejerrppcrfz/100 WBC (Bld)61.0 %NormalSumma Health Wadsworth - Rittman Medical Center on above:Order Comment: Specimen Type: BLOOD SPECIMEN [facility] Address: [address] [place], [place] [address]Performed By: #### 96686-1 #### [facility] CLIA [id number] [address] [place] [address] 50912Dhflqripl RBC (Bld) [#/Vol]10*3/uLNormal<0.01[facility] on above:Order Comment: Specimen Type: BLOOD SPECIMEN [facility] Address: [address] [place], [place] [address]Performed By: #### 88286-4 #### [facility] CLIA [id number] [address] [place] [address] 84775Hsrgzjduw RBC/100 WBC (Bld) [Ratio]0.0 /100 WBCNormalCAultman Orrville Hospital on above:Order Comment: Specimen Type: BLOOD SPECIMEN [facility] Address: [address] [place], [place] [address]Performed By: #### 54083-0 #### [facility] CLIA [id number] [address] [place] [address] 61361Bvomasfe mean volume (Bld) [Entitic vol]8.5 fLLow9.0-12.7 [facility] on above:Order Comment: Specimen Type: BLOOD SPECIMEN [facility] Address: [address] [place], [place] [address]Performed By: #### 60268-1 #### [facility] CLIA [id number] [address] [place], [place] [address]Nnmmdpcnj (Bld) [#/Vol]266 10*3/wSSyfdhk190-892LsztmqqnxSumma Health Wad[facility] - [facility] Center on above:Order Comment: Specimen Type: BLOOD SPECIMEN [facility] Address: [address] [place], [place] [address]Performed By: #### 32748-9 #### [facility] CLIA [id number] [address] [place], [place] [address]HND (Bld) [#/Vol]3.83 10*6/uLLow3.90-5.20[facility] on above:Order Comment: Specimen Type: BLOOD SPECIMEN [facility] Address: [address] [place], [place] [address]Performed By: #### 93388-3 #### [facility] CLIA [id number] [address] [place], [place] [address]STU (Bld) [#/Vol]6.05 10*3/uLNormal3.70-11.00[facility] on above:Order Comment: Specimen Type: BLOOD SPECIMEN [facility] Address: [address] [place], [place] [address]Performed By: #### 27492-9 #### [facility] CLIA [id number] [address] [place] [address] 40846BDB SerPl-mCncon 22-44-0748Kyhvgrewqaqzwnev Ag [Mass/Vol]4.1 ng/mLHigh<=2.9CAultman Orrville Hospital on above:Order Comment: Specimen Type: BLOOD SPECIMEN [facility] Address: [address] [place], [place] [address]Result Comment: Carcinoembryonic antigen test is used as an aid in monitoring response to treatmentor recurrence in patients with established colorectal, breast, lung, prostatic, pancreatic, and ovarian carcinomas. Clinical correlation is required. The Carcinoembryonic antigen test was performed using the [employer] DXI paramagnetic particle chemiluminescent immunoassay method. Results obtained with different assay methods or kits cannot be used interchangeably.Performed By: #### 66039-8 #### [facility] CLIA [id number] [address] [place] [address] 44969KVZCeq 21-32-9337WSEABtwdpoecx (HEMTSA) EVAN GILL ([id number]) 1955 F Date Time Provider Department 02/10/25 [...] [681] Primary Visit Diagnosis:Rectal cancer (HCC) [C20] Order(s):[facility] [place] [place] SEND OUT TST 1 [SQMISC1] Order #: [id number] FUTURE Prescriptions as of 02/11/2025 - [place] [...] 11/06/2023 Encounter Status:Closed by CAMILLA CORTÉS on 02/11/25[facility] ABD/PEL W IVCONon 55-18-0419XW ABD/PEL W IVCON* * *Final Report* * * DATE OF EXAM: Feb 10 2025 1:51PM [facility] 0530 - CT ABD/PEL W [...] any questions regarding this interpretation, please call [phone]. If you are unable to reach us at the number above, please feel free to contact [facility] eRadiology at [phone]. [id number] Wert County HospitalCT CHEST W IVCONon 17-00-9650UI CHEST W IVCON* * *Final Report* * * DATE OF EXAM: Feb 10 2025 1:51PM [facility] 0539 - CT CHEST W [...] any questions regarding this interpretation, please call [phone]. If you are unable to reach us at the number above, please feel free to contact [facility] eRadiology at [phone]. [id number] Wert County HospitalComprehensive metabolic 2000 panelOrdered By: Caleb Connolly on 90-23-5191Cazifpd [Mass/Vol]4 g/dL3.9 - 4.9 g/dLBrooklyn ClinicALP [Catalytic activity/Vol]103 U/L34 - 123 U/LCleveland ClinicALT [Catalytic activity/Vol]28 U/L7 - 38 U/LCleveland ClinicAnion gap [Moles/Vol]9 mmol/L8 - 15 mmol/LCleveland ClinicAST [Catalytic activity/Vol]16 U/L13 - 35 U/LCleveland ClinicBilirubin [Mass/Vol]0.3 mg/dL0.2 - 1.3 mg/dL [facility] CenterCalcium [Mass/Vol]9 mg/dL8.5 - 10.2 mg/dLTogus Va Medical Center Chloride [Moles/Vol]107 mmol/L98 - 107 mmol/LCleveland ClinicCO2 [Moles/Vol]25 mmol/L22 - 30 mmol/LCleveland ClinicCreatinine [Mass/Vol]0.67 mg/dL0.58 - 0.96 mg/dLTogus Va Medical CenterGFR/1.73 sq M.predicted among non-blacks MDRD (S/P/Bld) [Vol rate/Area]94 mL/min/{1.73_m2}- PINFCleveland ClinicComment on above: Estimated Glomerular Filtration Rate (eGFR) is calculated using the 2020 CKD-EPI creatinine equation. This equation utilizes serum creatinine, sex, and age as parameters. The creatinine assay has traceable calibration to isotope dilution- mass spectrometry. Refer to KDIGO guidelines for clinical interpretation. In patients with unstable renal function, e.g. those with acute kidney injury, the eGFRmay not accurately reflect actual GFR.Glucose [Mass/Vol]103 mg/mNPici35 - 99 mg/dLSelect Medical Specialty [facility] on above:The Micronesian Diabetes Association (ADA) provides guidance for cutoff [...] Standards of Medical Care in Diabetes 2016, [place]ron[employer] Diabetes Association. Diabetes Care. 2016.39(Suppl 1). Interpretation and review of laboratory resultsAbnormalCleveland ClinicPotassium [Moles/Vol]4.1 mmol/L3.7 - 5.1 mmol/LClevelnovant health matthews medical center ClinicProtein [Mass/Vol]6.6 g/dL 6.3 - 8.0 g/dLHenry County Hospitalodium [Moles/Vol]141 mmol/L136 - 144 mmol/L [facility] Medical CenterUrea nitrogen [Mass/Vol]14 mg/dL7 - 21 mg/dLCleveland Clinic Marymount HospitalComprehensive metabolic 2000 panelon 45-85-2559Gdbebia [Mass/Vol]4.0 g/dLNormal3.9-4.9CAultman [facility] on above:Order Comment: Specimen Type: BLOOD SPECIMEN [facility] Address: [address] [place], [place] [address]Uepworhfv By: #### 22749-7 #### [facility] CLIA [id number] [address] [place] [address] 58330RRB [Catalytic activity/Vol]103 U/AQgkipi82-908WzipqvuguSumma Health W[facility] - [facility] Center on above:Order Comment: Specimen Type: BLOOD SPECIMEN [facility] Address: [address] [place], [place] [address]Performed By: #### 12850-1 #### [facility] CLIA [id number] [address] [place], [place] [address]MCT [Catalytic activity/Vol]28 U/LNormal7-38[facility] on above:Order Comment: Specimen Type: BLOOD SPECIMEN [facility] Address: [address] [place], [place] [address]Performed By: #### 45238-1 #### [facility] CLIA [id number] [address] [place], [place] [address]Srewz gap [Moles/Vol]9 mmol/LNormal8-15[facility] on above:Order Comment: Specimen Type: BLOOD SPECIMEN [facility] Address: [address] [place], [place] [address]Performed By: #### 15408-4 #### [facility] CLIA [id number] [address] [place] [address] 54917IOV [Catalytic activity/Vol]16 U/FYzevpn33-88ItvzjcmrbSumma Health Wadsworth - [facility] Center on above:Order Comment: Specimen Type: BLOOD SPECIMEN [facility] Address: [address] [place], [place] [address]Performed By: #### 23422-1 #### [facility] CLIA [id number] [address] [place] [address] 19574Zqocpcsca [Mass/Vol]0.3 mg/dLNormal0.2-1.3CAultman Orrville Hospital on above:Order Comment: Specimen Type: BLOOD SPECIMEN [facility] Address: [address] [place], [place] [address]Performed By: #### 15903-6 #### [facility] CLIA [id number] [address] [place], [place] [address]Fwussdu [Mass/Vol]9.0 mg/dLNormal8.5-10.2CAultman Orrville Hospital on above:Order Comment: Specimen Type: BLOOD SPECIMEN [facility] Address: [address] [place], [place] [address]Performed By: #### 11235-5 #### [facility] CLIA [id number] [address] [place], [place] [address]Vzxyvrps [Moles/Vol]107 mmol/CNkwdqj05-639ZhfrbltzrSumma Health Wadsworth - [facility] Center on above:Order Comment: Specimen Type: BLOOD SPECIMEN [facility] Address: [address] [place], [place] [address]Performed By: #### 51892-4 #### [facility] CLIA [id number] [address] [place] [address] 717[address]XA9 [Moles/Vol]25 mmol/AVebdhs35-22UckhewwetVan Wert County Hospital Comment on above:Order Comment: Specimen Type: BLOOD SPECIMEN [facility] Address: [address] [place] [address]Nxizuyplb By: #### 73759-2 #### [facility] CLIA [id number] [address] [place] [address] 19760Oflphmowvl [Mass/Vol]0.67 mg/dLNormal0.58-0.96[facility] on above:Order Comment: Specimen Type: BLOOD SPECIMEN [facility] Address: [address] [place] [address]Gspbvonrx By: #### 73763-7 #### [facility] CLIA [id number] [address] [place], [place] [address]iKTOzr SerPlBld CKD-EPI 191623 mL/min/1.73m???Normal>=60 [facility] on above:Order Comment: Specimen Type: BLOOD SPECIMEN Order[facility] Address: [address] [place] [address]55[address]Cypyes Comment: Estimated Glomerular Filtration Rate (eGFR) is [...] not accurately reflect actual GFR.Performed By: #### 20475-7 #### [facility] CLIA [id number] [address] [place] [address] 824[address]Ytkmbec [Mass/Vol]103 mg/zGSolh39-95IbuenhqrfVan Wert County Hospital Comment on above:Order Comment: Specimen Type: BLOOD SPECIMEN Order[facility] Address: [address] [place], [place] [address]Ifvbcc Comment: The Micronesian Diabetes Association (ADA) provides guidance for cutoff [...] Standards of Medical Care in Diabetes 2016, Micronesian Diabetes Association. Diabetes Care. 2016.39(Suppl 1).Performed By: #### 27366-6 #### [facility] CLIA [id number] [address] [place] [address] 35562Cpbrvidas [Moles/Vol]4.1 mmol/LNormal3.7-5.1CAdena Fayette Medical CenterComment on above:Order Comment: Specimen Type: BLOOD SPECIMEN [facility] Address: [address] [place], [place] [address]Wovdynnqn By: #### 01296-0 #### [facility] CLIA [id number] [address] [place], [place] [address]Wqsbcob [Mass/Vol]6.6 g/dLNormal6.3-8.0[facility] on above:Order Comment: Specimen Type: BLOOD SPECIMEN [facility] Address: [address] [place], [place] [address]Performed By: #### 60811-1 #### [facility] CLIA [id number] [address] [place], [place] [address]Nslnqf [Moles/Vol]141 mmol/BQcvtqs037-376TcogxjletSumma Health Wadsworth - [facility] on above:Order Comment: Specimen Type: BLOOD SPECIMEN [facility] Address: [address] [place], [place] [address]Performed By: #### 48097-6 #### [facility] CLIA [id number] [address] [place], [place] [address]Uciy nitrogen [Mass/Vol]14 mg/dLNormal7-21[facility] on above:Order Comment: Specimen Type: BLOOD SPECIMEN [facility] Address: [address] [place], [place] [address]Performed By: #### 91255-7 #### [facility] CLIA [id number] [address] [place], [place] [address]SJSO SEND OUT TST 1on 16-36-1164QJHG SCAN TEST RESULTS 1View results in Scanned Documents link when availableNoProMedica Fostoria Community Hospital Comment on above:Order Comment: Specimen Type: BLOOD SPECIMENOrdering Facility: [facility] Address:[address] [place], [place] [address] Performed By: #### MISC1 ####[facility] LABCLIA [id number] [address] [address] [facility]-INTER[facility] REF LABSCLIA SEE SCANNED RESULTSREFERRAL LAB 1 (DROP-DOWN)[facility]aNoMedina Hospital on above:Order Comment: Specimen Type: BLOOD SPECIMENOrdering Facility: [facility] Address:[address] [place], [place] [address]Performed By: #### MISC1 ####[facility] LABCLIA [id number] [address] [address] [facility]-INTERFAC[facility] REF LABSCLIA SEE SCANNED RESULTSTEST 1SignateraNormal [facility] on above:Order Comment: Specimen Type: BLOOD SPECIMENOrdering Facility: [facility] Address:[address] [place] [place] [address]Performed By: #### MISC1 ####[facility] LABCLIA [id number] [address] [address] [facility]-INTER[facility] REF LABSCLIA SEE SCANNED [id number] 01-29-2025 [id number] ID: [id number] Author: CHAPINCITO ANTHONY PT Service: ? Author Type: Physical Therapist Type: [id number] Filed: 01/29/2025 12:32 Note Text: [facility] Physical Therapy Plan of Care Certification Patient Name: Evan Gill : 1955 [facility] #: [id number] Date: 01/28/2025 To: Laisha Singer MD From [...] Planned: 6 Planned Treatment Interventions: Therapeutic exercise (20542), Neuromuscular re-education (75643), Manual therapy (43957), Self-fci management (49261), Patient/Family/Caregiver Education PLAN FOR NEXT VISIT: progress [...] reviewed the treatment plan for Evan Gill, [facility]# [id number] for the period of 01/28/25 -- 04/23/25, established on 01/28/2025. Signature certifies the need for therapy services.NormalRegency Hospital Cleveland WestHERAPYon 11-32-6973RVFBOALYPEA/PT/Speech Visit (PTAF) EVAN GILL ([id number]) 1955 F Date Time Provider Department 01/28/25 11:30 AM CHAPINCITO ANTHONY PTAF Date Time Provider Department [place] 01/28/2025 11:30 AM [id number] ANTHONY [facility] Reason for Visit: PT Eval [747] Primary [...] tablet Take 81 mg by mouth once daily.NormalVan Wert County HospitalCNPNon 01-03-20[address] C[address]NTele[address] ([facility]) EVAN GILL ([id number]) 1955 F Date Time Provider Department 01/03/[address] [facility] During your visit today, we recorded the following information about you: Princess Mckeon, KAYA 01/03/2025 9:51 AM Signed Call placed to [...] 11/06/2023 Encounter Status:Closed by PRINCESS MCKEON on 01/03/25NoCleveland Clinic [facility] ANORECTAL MANOMETRYon 11-05-2024I have reviewed, verified, [...] pelvic floor non-relaxation / dyssynergia. Ale Marie APRN.[facility]AD[facility] ANORECTAL MANOMETRYOrdered By: Rodolfo Hernandez on 62-60-2727Dxnaxligi Clinic Work Phone: Radiology Study observation (narrative)[facility] Work Phone: CNOVon 93-39-3696VMRWTmwssk Visit (JARRELLSAV) EVAN GILL ([id number]) 1955 F Date Time Provider Department 10/31/24 9:00 AM LAISHA SINGER During your visit today, we recorded the following information about you: Pulse Blood pressure Weight Height 74/minute 138/68 74.7 kg 1.626 m Laisha Singer MD 10/31/2024 2:52 PM Signed COLORECTAL SURGERY October 31, 2024 Evan C Allie Chief Complaint: low anterior resection syndrome History [...] tattooed. View External Procedures - Colonoscopy [ID [id number]] Pathology: Ascending colon polyp: tubular adenoma Scan on 10/16/2024 1:47 PM by Provider, External, PADesireeC: Pathology PAST MEDICAL HISTORY Diagnosis Date Constipation [...] Manometry Pelvic floor PT (more content not included)...NormalVan Wert County HospitalX-ray report Ordered By: Cayden Zamorano on 76-77-7853Szmvp reportPROMEDICA DEFIANCE [facility]ION[facility] [place] [facility] [address] [place] [address] XRay Report Signed Patient: Evan Gill MR#: [id number] : 1955 Acct:[id number] Age/Sex: 69 / F ADM Date: 5 Loc: SOXD Room: Type: REG CLI Attending Dr: Amanda Chester MD Copies [...] 12:05 PM Dictation Location: RADIO-PC-18 Transcribed By: [facility] 10/18/24 1205 Dictated By: Cayden Zamorano Jr, DO 10/18/24 1204 Signed By: 10/18/24 1205 [facility] HospitalXR hand RT min 3V*on 93-07-3347LA hand RT min 3V*[facility] [address] [place] [address] XRay Report Signed Patient: Evan Gill MR#: [id number] : 1955 Acct:[id number] Age/Sex: 69 / F ADM Date: 10/18/24 [place] [facility] [place] [facility]: Amanda Chester MD Copies to: [...] COMPLICATION. Impression dictated by: Cayden Zamorano Jr., D.O.10/18/2024 12:05 PM Dictation Location: RADIO-PC-18 Transcribed By: [facility] 10/18/24 1205 Dictated By: Cayden Zamorano Jr, DO 10/18/24 1204 Signed By: 10/18/24 1205[facility] Physician GroupOVon 34-48-5471SMFQDgcitv Visit (RADTSA) SHAUNEVAN SALES ([id number]) 1955 F Date Time Provider Department 10/09/24 [...] for nausea/vomiting. omeprazole (PRILOSEC) (more content not included)...NormalVan Wert County HospitalX-ray reportOrdered By: Davie Garcia on 85-70-2764Nlkun reportPROMEDICA DEFIANCE REGIONAL [facility] [address] [place] [address] XRay Report Signed Patient: Evan Gill MR#: [id number] : 1955 Acct:[id number] Age/Sex: 69 / F ADM Date: 5 [place] [facility] [place]: Type: [facility] Attending Dr: Amanda Chester MD Copies to: [...] 4:53 PM Dictation Location: [id number]-[id number] Transcribed By: [place] 09/27/241652 Dictated By: Davie Garcia MD 09/27/241650 Signed By: 09/27/241652 [facility] Work Phone: XR hand RT min 3V*on [id number] hand RT min 3V* [facility] [address] [place] [address] XRay Report Signed Patient: Evan Gill MR#: [id number] : 1955 Acct:[id number] Age/Sex: 69 / F ADM Date: 09/27/24 Loc: [facility] – [place] Room: Type: [facility] Attending Dr: Amanda Chester MD Copies to: [...] 4:53 PM Dictation Location: RADIO-PC-29 Transcribed By: [facility] 09/27/241652 Dictated By: Davie Garcia MD 09/27/241650 Signed By: 09/27/[address] [place] [address] Physician GroupLon 09-18-2024 Specimen: [id number] Received: 09/18/24 Status: JESSICA Pat Num: [id number] Spec Type: Surgical Subm Dr: Tomi Greene MD Tissues: A Colon Biopsy (ASCND COL) Procedures: HE/Luz Gross/Quentin L4 Age/ Patient Sex Location Account Attending Physician Evan Gill 69/F [id number] Tomi Greene MD SPEC NUM: [id number] RECD: 09/18/24 STATUS: JESSICA PAT NUM: [id number] PERLA: 09/18/24- SUBM DR: Tomi Greene MD ENTERED: 09/18/24-[address]: SPEC TYPE: Surgical DEPT: S ENTERED BY: [id number] RECV BY: [id number] ORDERED: HE/2, Gross/Micro L4 ORDERED: HE/2, Gross/Micro [...] with the vegetative material routine. (1, ns, [id number] A) Microscopic Description Microscopic examination is performed. CPT Codes 21278 Specimen: [id number] Received: 09/18/24 Status: JESSICA Liza Num: [id number] Spec Type: Surgical Subm Dr: Tomi Greene MD Tissues: A Colon Biopsy (ASCND COL) Procedures: HE/2, Gross/Micro L4 Patient: Evan Gill [id number] (Continued) Signed (signature on file) Jed Vang MD 09/19/24 0948Normal [facility] Physician GroupCNOVSPon 34-11-1023OPVQQUGizyf () Office (HEMAVN) GAVIN GILLA ([id number]) 1955 F Date Time Provider Department 09/03/24 1:45 PM TAPAN CORONA During your visit today, we recorded the following information about you: Temperature Pulse Respiration Blood pressure 97.2 degrees 64/minute 18/minute 121/74 Weight Height 72.5 kg 1.626 m Tapan Corona MD 09/03/2024 2:15 PM Signed PATIENT NAME: Evan Gill CLINIC NO.: [id number] ATTENDING PHYSICIAN: Tapan Corona MD DATE OF [...] Ref Range Status 08/19/2024 (more content not included)...NormalVan Wert County HospitalCNPNon 63-66-2938GIKZMghdbqjjd (HEMAVN) EVAN GILL ([id number]) 1955 F Date Time Provider Department 08/27/24 GAGANDEEP WARD During your visit today, we recorded the following information about you: Gagandeep Ward RN 08/27/2024 10:44 AM Signed Left message for patient regarding lab results. Follow up OV Dr Corona 09/03/24 as scheduled. Sent to scanning into ThetaRay Lenin Krause RN 08/27/2024 11:13 AM Signed Patient calling [...] 11/06/2023 Encounter Status:Closed by GAGANDEEP WARD on 08/27/24NoProMedica Fostoria Community HospitalAerobic Cultureon 81-19-2794Rrxgykq CultureComment Deep Wound Cx of R Long [...] RESISTANT TO ALL B-LACTAM DRUGS. PERFORMED BY: [place] [address] PATHOLOGIST MARRIAGE AND FAMILY THERAPIST NICOLE SOW M.D.[facility] Physician GroupComment on above: Performed By: #### BMP, CBC #### [address] [address] USAAerobic CultureComment Deep Wound Cx of R [...] RESISTANT TO ALL B-LACTAM DRUGS. PERFORMED BY: [address] [address] PATHOLOGIST MARRIAGE AND FAMILY THERAPIST NICOLE SOW M.D.[facility] Physician GroupComment on above: Performed By: #### BMP, CBC #### [place] [id number] USAAnaerobic cultureOrdered By: Amanda Chester on 08-26-2024 Bacteria identified Anaer cx Nom (Unsp spec)Anaerobic cultureParkwood HospitalBacteria identified Anaer cx Nom (Unsp spec)Anaerobic culture Parkwood HospitalBacteria identified Aer cx Nom (Unsp spec) Ordered By: Amanda Chester on 90-99-1993Lpsuzll CultureAbAultman Alliance Community HospitalAerobic CultureAbAultman Alliance Community Hospital Gram stain microscopyOrdered By: Amanda Chester on 88-06-1578Ygbggmvdxww observation Gram stain Nom (Unsp spec)Gram stain microscopyParkwood HospitalMicroscopic observation Gram stain Nom (Unsp spec)Gram stain [facility] - AndersonXR finger RT 3rd digiton 06-94-9892KI finger RT 3rd digitPROMEDICA DEFIANCE REGION[facility] Main [place] [address] [place], [place] [address] XRay Report Signed Patient: Evan Gill MR#: [id number] [birth year] : 1955 Acct:[id number] Age/Sex: 69 / F ADM Date: 08/26/24 Loc: [place] Room: Type: [facility] Attending Dr: Amanda Chester MD Copies to: [...] Cameron Lares M.D.08/26/2024 3:47 PM Dictation Location: [facility]--20 Transcribed By: [facility] 08/26/24 1547 Dictated By: Cameron Lares DO 08/26/24 1546 Signed By: 08/26/24 1547[facility] Physician GroupECG 12 lead ECGon 14-36-1712ICE 12 lead ECGPROMEDICA DEFIANCE REGIONAL [facility]ITAL Main [place] [id number] Electrocardiograph Report Signed Patient: Evan Gill MR#: [id number] [birth year] : 1955 Acct:[id number] Age/Sex: 68 / F ADM Date: 08/20/24 Loc: [place] Room: Type: [facility] Attending Dr: Amanda Chester MD Ordering Provider: [...] in Lateral leads Confirmed by RAYSHAWN VELASQUEZ [facility]CARET[facility] (137) on 08/20/2024 4:35:52 PM Referred By: Electronically Signed By: TROY TABARES MD FAC Transcribed By: MUS Signed By Tryo Tabares MD, FACC 08/20/24 1635[facility] Physician GroupBasophils Auto (Bld) [#/Vol]on 32-26-7865Mpyhyumwb (Bld) [#/Vol]Automated basophil count<0.11Parkwood HospitalBasophils/100 WBC Auto (Bld)on 79-53-0769Hhkworbcu/100 WBC (Bld) Automated basophil %Parkwood HospitalBlood manual differential comment interpretation narrativeon 31-24-5288Fvfsdk differential comment Ankush (Bld) [Interp]Blood manual differential comment interpretation narrative Parkwood HospitalCB W Auto Differential panel (Bld)on 22-64-4388Umxveplfy (Bld) [#/Vol]0.07 10*3/uLNormal<0.11CAultman [facility]rville [facility] on above:Order Comment: Specimen Type: BLOOD SPECIMEN Ordering Facility: [facility] Address: [address] [place], [place] [address]Performed By: #### 45978-3 #### [facility] CLIA [id number] [address] [place] [address]Kmjvhgdmz/100 WBC (Bld)1.1 %NormalVan Wert County Hospital Comment on above:Order Comment: Specimen Type: BLOOD SPECIMEN Ordering Facility: [facility] Address: [address] [place], [place] [address]Performed By: #### 30836-7 #### [facility] CLIA [id number] [address] [place] [address] 85199Ayoduhmpqitp cell count method Nom (Bld)AutoNormalClevelLifeCare Hospitals of North CarolinaCombeaumont hospital on above:Order Comment: Specimen Type: BLOOD SPECIMEN Ordering Facility: [facility] Address: [address] [place], [place] [address]Performed By: #### 95275-4 #### [facility] CLIA [id number] [address] [place] [address] 32694Ejrntbuwgiq (Bld) [#/Vol]0.25 10*3/uLNormal<0.46Van Wert County HospitalCombeaumont hospital on above:Order Comment: Specimen Type: BLOOD SPECIMEN Ordering Facility: [facility] Address: [address] [place], [place] [address]Performed By: #### 05632-2 #### [facility] CLIA [id number] [address] [place], [place] [address]Afelyenhmkx/100 WBC (Bld)3.8 %NormalVan Wert County Hospital Comment on above:Order Comment: Specimen Type: BLOOD SPECIMEN Ordering Facility: [facility] Address: [address] [place], [place] [address]Performed By: #### 73352-3 #### [facility] CLIA [id number] [address] [place], [place] [address]Dplgbnephoe distribution width (RBC) [Ratio]14.6 %Normal 11.5-15.0[facility] on above:Order Comment: Specimen Type: BLOOD SPECIMEN Ordering Facility: [facility] Address: [address] [place], [place] [address]Performed By: #### 22957-6 #### [facility] CLIA [id number] [address] [place] [address] 29607Fskifkinos (Bld) [Volume fraction]35.4 %Low36.0-46.0[facility] on above:Order Comment: Specimen Type: BLOOD SPECIMEN Ordering Facility: [facility] Address: [address] [place], [place] [address]Performed By: #### 09132-8 #### [facility] CLIA [id number] [address] [place] [address]48[address]Cfqlbautch (Bld) [Mass/Vol]11.7 g/iJXrhwpx45.5-15.5CAultman Orrville Hospital on above:Order Comment: Specimen Type: BLOOD SPECIMEN Ordering Facility: [facility] Address: [address] [place], [place] [address]Performed By: #### 00984-6 #### [facility] CLIA [id number] [address] [place] [address] 455[address]Zkmutqqs granulocytes (Bld) [#/Vol]10*3/uLNormal<0.10[facility] on above:Order Comment: Specimen Type: BLOOD SPECIMEN Ordering Facility: [facility] Address: [address] [place], [place] [address]Performed By: #### 80513-3 #### [facility] CLIA [id number] [address] [place] [address]89[address]Geskfios granulocytes/100 WBC (Bld)0.3 %NormalSumma Health Wadsworth - Rittman Medical Center on above:Order Comment: Specimen Type: BLOOD SPECIMEN Ordering Facility: [facility] Address: [address] [place], [place] [address]Performed By: #### 86682-0 #### [facility] CLIA [id number] [address] [place], [place] [address]Ekkwcwkosba (Bld) [#/Vol]1.71 10*3/uLNormal1.00-4.00[facility] on above:Order Comment: Specimen Type: BLOOD SPECIMEN Ordering Facility: [facility] Address: [address] [place], [place] [address]Performed By: #### 64226-9 #### [facility] CLIA [id number] [address] [place], [place] [address]Hfyhyawdoho/100 WBC (Bld)26.1 %NormalSumma Health Wadsworth - Rittman Medical Center on above:Order Comment: Specimen Type: BLOOD SPECIMEN Ordering Facility: [facility] Address: [address] [place], [place] [address]Performed By: #### 15282-1 #### [facility] CLIA [id number] [address] [place] [address] 211[address]FWB (RBC) [Entitic mass]29.8 viTozyox02.0-34.0[facility] on above:Order Comment: Specimen Type: BLOOD SPECIMEN Ordering Facility: [facility] Address: [address] [place], [place] [address]Performed By: #### 29339-5 #### [facility] CLIA [id number] [address] [place], [place] [address]IBIQ (RBC) [Mass/Vol]33.1 g/uRPdmapz24.5-36.0[facility] on above:Order Comment: Specimen Type: BLOOD SPECIMEN Ordering Facility: [facility] Address: [address] [place], [place] [address]Performed By: #### 03956-0 #### [facility] CLIA [id number] [address] [place], [place] [address]CXU (RBC) [Entitic vol]90.3 pSUsurrd60.0-100.0[facility] on above:Order Comment: Specimen Type: BLOOD SPECIMEN Ordering Facility: [facility] Address: [address] [place], [place] [address]Performed By: #### 99807-5 #### [facility] CLIA [id number] [address] [place] [address]Olgkkqvsp (Bld) [#/Vol]0.51 10*3/uLNormal<0.87[facility] on above:Order Comment: Specimen Type: BLOOD SPECIMEN Ordering Facility: [facility] Address: [address] [place], [place] [address]Performed By: #### 71409-3 #### [facility] CLIA [id number] [address] [place] [address] 487[address]Nalbfldxl/100 WBC (Bld)7.8 %NormalVan Wert County Hospital Comment on above:Order Comment: Specimen Type: BLOOD SPECIMEN Ordering Facility: [facility] Address: [address] [place], [place] [address]Performed By: #### 57912-2 #### [facility] CLIA [id number] [address] [place] [address] 13439Mbnjpzhcvak (Bld) [#/Vol]4.00 10*3/uLNormal1.45-7.50[facility] on above:Order Comment: Specimen Type: BLOOD SPECIMEN Ordering Facility: [facility] Address: [address] [place], [place] [address]Performed By: #### 84559-0 #### [facility] CLIA [id number] [address] [place] [address] 278[address]Zmwrteekusl/100 WBC (Bld)60.9 %NormalSumma Health Wadsworth - Rittman Medical Center on above:Order Comment: Specimen Type: BLOOD SPECIMEN Ordering Facility: [facility] Address: [address] [place], [place] [address]Performed By: #### 11933-2 #### [facility] CLIA [id number] [address] [place], [place] [address]Hutzeucwx RBC (Bld) [#/Vol]10*3/uLNormal<0.01[facility] on above:Order Comment: Specimen Type: BLOOD SPECIMEN Ordering Facility: [facility] Address: [address] [place], [place] [address]Performed By: #### 69524-2 #### [facility] CLIA [id number] [address] [place], [place] [address]Fdujenlar RBC/100 WBC (Bld) [Ratio]0.0 /100 WBCNormalCAultman Orrville Hospital on above:Order Comment: Specimen Type: BLOOD SPECIMEN Ordering Facility: [facility] Address: [address] [place], [place] [address]Performed By: #### 50191-5 #### [facility] CLIA [id number] [address] [place] [address]Nfhxhbzy mean volume (Bld) [Entitic vol]8.2 fLLow9.0-12.7 [facility] on above:Order Comment: Specimen Type: BLOOD SPECIMEN Ordering Facility: [facility] Address: [address] [place], [place] [address]Performed By: #### 60155-9 #### [facility] CLIA [id number] [address] [place], [place] [address]Wlddctpan (Bld) [#/Vol]282 10*3/oIUsdoag629-400EfxiwgukiSumma Health Wadsworth - Rittman Medical Center on above:Order Comment: Specimen Type: BLOOD SPECIMEN Ordering Facility: [facility] Address: [address] [place], [place] [address]Performed By: #### 79681-5 #### [facility] CLIA [id number] [address] [place] [address] 32042ZSZ (Bld) [#/Vol]3.92 10*6/uLNormal3.90-5.20[facility] on above:Order Comment: Specimen Type: BLOOD SPECIMEN Ordering Facility: [facility] Address: [address] [place], [place] [address]Performed By: #### 89042-8 #### [facility] CLIA [id number] [address] [place] [address] 388[address]NEA (Bld) [#/Vol]6.56 10*3/uLNormal3.70-11.00[facility] on above:Order Comment: Specimen Type: BLOOD SPECIMEN Ordering Facility: [facility] Address: [address] [place], [place] [address]Performed By: #### 57529-1 #### [facility] CLIA [id number] [address] [place] [address] 36[address]RDL SerPl-mCncon 98-14-6153Lqsnngqygeawexbo Ag [Mass/Vol]3.5 ng/mLHigh<=2.9CAultman [facility] on above:Order Comment: Specimen Type: BLOOD SPECIMEN Ordering Facility: [facility] Address: [address] [place], [place] [address]Result Comment: Carcinoembryonic antigen test is used as an aid in monitoring response to treatmentor recurrence in patients with established colorectal, breast, lung, prostatic, pancreatic, and ovarian carcinomas. Clinical correlation is required. The Carcinoembryonic antigen test was performed using the [employer] DXI paramagnetic particle chemiluminescent immunoassay method. Results obtained with different assay methods or kits cannot be used interchangeably.Performed By: #### 73981-8 #### [facility] CLIA [id number] [address] [place] [address]Sysmvevdsfdhj metabolic 2000 panelon 58-67-7738Btizmqp [Mass/Vol]4.1 g/dLNormal3.9-4.9CAultman [facility] on above:Order Comment: Specimen Type: BLOOD SPECIMEN Ordering Facility: [facility] Address: [address] [place], [place] [address]Performed By: #### 96639-9 #### [facility] CLIA [id number] [address] [place] [address] [place] [address]GSK [Catalytic activity/Vol]80 U/OBwpnkw11-642OcbdqscvnSumma Health Wadsworth - [facility] Center on above:Order Comment: Specimen Type: BLOOD SPECIMEN Ordering Facility: [facility] Address: [address] [place], [place] [address]Performed By: #### 88897-6 #### [facility] CLIA [id number] [address] [place], [place] [address]JUS [Catalytic activity/Vol]15 U/LNormal7-38[facility] on above:Order Comment: Specimen Type: BLOOD SPECIMEN Ordering Facility: [facility] Address: [address] [place], [place] [address]Performed By: #### 28920-5 #### [facility] CLIA [id number] [address] [place] [address] 269[address]Paogr gap [Moles/Vol]8 mmol/LNormal8-15[facility] on above:Order Comment: Specimen Type: BLOOD SPECIMEN Ordering Facility: [facility] Address: [address] [place], [place] [address]Performed By: #### 22654-5 #### [facility] CLIA [id number] [address] [place], [place] [address]OTP [Catalytic activity/Vol]16 U/QEbvzhx08-51AnnpnvpbeSumma Health Wadsworth - [facility] Center on above:Order Comment: Specimen Type: BLOOD SPECIMEN Ordering Facility: [facility] Address: [address] [place], [place] [address]Performed By: #### 02861-5 #### [facility] CLIA [id number] [address] [place], [place] [address]Ddkcumopu [Mass/Vol]0.3 mg/dLNormal0.2-1.3CAultman [facility] on above:Order Comment: Specimen Type: BLOOD SPECIMEN Ordering Facility: [facility] Address: [address] [place], [place] [address]Performed By: #### 95138-2 #### [facility] CLIA [id number] [address] [place], [place] [address]Xleyyjx [Mass/Vol]9.6 mg/dLNormal8.5-10.2CAultman [facility] on above:Order Comment: Specimen Type: BLOOD SPECIMEN Ordering Facility: [facility] Address: [address] [place], [place] [address]Performed By: #### 96411-9 #### [facility] CLIA [id number] [address] [place] [address] 129[address]Lqsqnxnv [Moles/Vol]106 mmol/TNgvqbp64-818HutdjftluSumma Health Wadsworth - [facility] Center on above:Order Comment: Specimen Type: BLOOD SPECIMEN Ordering Facility: [facility] Address: [address] [place], [place] [address]Performed By: #### 52456-9 #### [facility] [place] [id number] [address] [place] [address] 66[address]RD9 [Moles/Vol]28 mmol/THdmhft17-51NfihphiwlVan Wert County Hospital Comment on above:Order Comment: Specimen Type: BLOOD SPECIMEN Ordering Facility: [facility] Address: [address] [place], [place] [address]Performed By: #### 38599-9 #### [facility] [place] [id number] [address] [place] [address]Fyzhajumlv [Mass/Vol]0.74 mg/dLNormal0.58-0.96[facility] on above:Order Comment: Specimen Type: BLOOD SPECIMEN Ordering Facility: [facility] Address: [address] [place], [place] [address]Performed By: #### 19116-6 #### [facility] [place] [id number] [address] [place] [address] 218[address]Dplzhqtjys and Glomerular filtration rate.predicted panel (S/P/Bld)87 mL/min/1.73m???Normal>=60[facility] on above: Order Comment: Specimen Type: BLOOD SPECIMEN Ordering Facility: [facility] Address: [address] [place], [place] [address]Nyceiq Comment: Estimated Glomerular Filtration Rate (eGFR) is [...] not accurately reflect actual GFR.Performed By: #### 37611-0 #### [facility] CLIA [id number] [address] [place] [address] 313[address]Cmswubs [Mass/Vol]108 mg/iDGjqt26-23IsyxqzjdeVan Wert County Hospital Comment on above:Order Comment: Specimen Type: BLOOD SPECIMEN Ordering Facility: [facility] Address: [address] [place], [place] [address]Przybq Comment: The [place] Diabetes Association (ADA) provides guidance for cutoff [...] Standards of Medical Care in Diabetes 2016, [place] Diabetes Association. Diabetes Care. 2016.39(Suppl 1).Performed By: #### 86117-2 #### [facility] CLIA [id number] [address] [place] [address] 78[address]Dbhtowutz [Moles/Vol]4.2 mmol/LNormal3.7-5.1CAdena Fayette Medical CenterComment on above:Order Comment: Specimen Type: BLOOD SPECIMEN Ordering Facility: [facility] Address: [address] [place], [place] [address]Wnxakdmjr By: #### 91816-6 #### [facility] CLIA [id number] [address] [place] [address] 65[address]Yxdcwfk [Mass/Vol]6.3 g/dLNormal6.3-8.0[facility] on above:Order Comment: Specimen Type: BLOOD SPECIMEN Ordering Facility: [facility] Address: [address] [place], [place] [address]Performed By: #### 73699-1 #### [facility] CLIA [id number] [address] [place], [place] [address]Hhqola [Moles/Vol]142 mmol/VWitemt764-476ZjqdqrjnxSumma Health Wadsworth - [facility] Center on above:Order Comment: Specimen Type: BLOOD SPECIMEN Ordering Facility: [facility] Address: [address] [place], [place] [address]Performed By: #### 05107-4 #### [facility] CLIA [id number] [address] [place], [place] [address]Wbly nitrogen [Mass/Vol]23 mg/dLHigh7-21[facility] on above:Order Comment: Specimen Type: BLOOD SPECIMEN Ordering Facility: [facility] Address: [address] [place], [place] [address]Performed By: #### 56787-6 #### [facility] CLIA [id number] [address] [place] [address]Sdshzmcychq/100 WBC Auto (Bld)on 51-60-7507Ufdvbikxnjh/100 WBC (Bld)Automated eosinophil %Parkwood HospitalErythrocyte distribution width Auto (RBC) [Ratio]on 76-77-6539Pgwowfaagrn distribution width (RBC) [Ratio]Erythrocyte distribution width [Ratio] by Automated count11.5-15.0 Parkwood HospitalHematocrit Auto (Bld) [Volume fraction]on 90-20-9058Dnxcxmeewj (Bld) [Volume fraction]Hematocrit [Volume Fraction] of Blood by Automated fsfohDwe32.0-46.0Park[facility] HospitalHemoglobin [Mass/volume] in Bloodon 60-96-3935Qylgangsur (Bld) [Mass/Vol]Hemoglobin [Mass/volume] in Blood11.5-15.5FMcCullough-Hyde Memorial HospitalLaboratory - Chemistry and Chemistry - challengeon 65-40-9859Figzqje [Mass/Vol]4.1 g/dL 3.9-4.9Park[facility] HospitalALP [Catalytic activity/Vol]80 U/L34-123 [facility] HospitalALT [Catalytic activity/Vol]15 U/L7-38Parkwood HospitalAST [Catalytic activity/Vol]16 U/D60-86DlnlrvgikParkwood HospitalBilirubin [Mass/Vol]0.3 mg/dL0.2-1.3FMcCullough-Hyde Memorial HospitalCalcium [Mass/Vol]9.6 mg/dL8.5-10.2FMcCullough-Hyde Memorial Hospital Chloride [Moles/Vol]106 mmol/B86-715WfyrzltsfParkwood HospitalCO2 [Moles/Vol]28 mmol/W91-20FchkadmgjParkwood HospitalCreatinine [Mass/Vol] 0.74 mg/dL0.58-0.96Parkwood HospitalGlucose [Mass/Vol]108 mg/dL Zyfj13-90ZvqfbqrzvParkwood HospitalComment on above:The [place] Diabetes Association (ADA) provides guidance for cutoff [...] diabetes.Reference: Standardsof Medical Care in Diabetes 2016, [place] Diabetes Association. Diabetes Care. 2016.39(Suppl 1). Potassium [Moles/Vol]4.2 mmol/L3.7-5.1FOhioHealth Riverside Methodist Hospitalodium [Moles/Vol]142 mmol/O585-656JequkojwcParkwood HospitalUrea nitrogen [Mass/Vol]23 mg/dLHigh7-21Park[facility] HospitalLaboratory - Hematology and Cell countson 75-05-9074Zttzdgaogsu (Bld) [#/Vol]0.25 10*3/uL <0.46Parkwood HospitalImmature granulocytes/100 WBC (Bld)0.3 % Parkwood HospitalLeukocytes [#/volume] corrected for nucleated erythrocytes in Blood by Automated counon 67-61-3552IQY corrected for nucl RBC Auto (Bld) [#/Vol]Leukocytes [#/volume] corrected for nucleated erythrocytes in Blood by Automated coun3.70-11.00Parkwood HospitalLymphocytes Auto (Bld) [#/Vol]on 68-85-0909Ztwxkcruqxi (Bld) [#/Vol]Lymphocytes [#/volume] in Blood by Automated count1.00-4.00[facility] Lymphocytes/100 WBC Auto (Bld)on 04-86-0042Mizvgqcxgvs/100 WBC (Bld) Lymphocytes/100 leukocytes in Blood by Automated countFisher-Titus Medical CenterH Auto (RBC) [Entitic mass]on 13-31-7344JBW (RBC) [Entitic mass]MCH [Entitic mass] by Automated count26.0-34.0Parkwood HospitalMCHC Auto (RBC) [Mass/Vol]on 13-78-3698UELH (RBC) [Mass/Vol]MCHC [Mass/volume] by Automated count30.5-36.0Park[facility] HospitalMCV Auto (RBC) [Entitic vol]on 83-67-1774VHK (RBC) [Entitic vol]MCV [Entitic volume] by Automated count 80.0-100.0[facility] HospitalMISC SEND OUT TST 1on 08-26-2581OLHF SCAN TEST RESULTS 1View results in Scanned Documents link when availableNormal [facility] on above:Order Comment: Specimen Type: BLOOD SPECIMENOrdering Facility: [facility] Address:[address] [place], [place] [address]Performed By: #### MISC1 ####NON-INTERFACED REF LABSCLIA SEE SCANNED RESULTSTHE BELLEVUE [facility] LABCLIA [id number] [place] [address] [place] STATES OF AMERICAREFERRAL LAB 1 (DROP-DOWN)[facility] on above:Order Comment: Specimen Type: BLOOD SPECIMENOrdering Facility: [facility] Address:[address] [place], [place] [address]Performed By: #### MISC1 ####NON-INTERFACED REF LABSCLIA SEE SCANNED RESULTSTHE [facility] LABCLIA [id number] [address] [place] [address] [facility]OSPITALTEST 1SignaterParkwood Hospital on above:Order Comment: Specimen Type: BLOOD SPECIMENOrdering Facility: [facility] Address:[address] [place], [place] [address]Performed By: #### MISC1 ####NON-INTERFACED REF LABSCLIA SEE SCANNED RESULTSTHE [facility] LABCLIA [id number] [address] [address] [facility] HOSPITALMonocytes Auto (Bld) [#/Vol]on 40-33-3850Zwcgrdxyc (Bld) [#/Vol]Automated blood monocyte count<0.87[facility] Monocytes/100 WBC Auto (Bld)on 13-11-5544Befzjiuhz/100 WBC (Bld)Automated monocyte %[facility]wood HospitalNeutrophils Auto (Bld) [#/Vol]on 37-54-7184Oyivhnwtrpc (Bld) [#/Vol]Neutrophils [#/volume] in Blood by Automated count1.45-7.50Park[facility] HospitalNeutrophils/100 WBC Auto (Bld)on 64-08-8737Rfvizixfsmt/100 WBC (Bld)Automated neutrophil %[facility] HospitalNo Panel Informationon 56-58-0113Smvqyqgcn GFR (CKD-EPI)87 mL/min/1.73m???>=60[facility] HospitalCombeaumont hospital on above:Estimated Glomerular Filtration Rate (eGFR) is [...] accurately reflect actual GFR.Immature Granulocyte # (Auto)<0.03 k/uL<0.10Park[facility] HospitalReference Lab NotationUniversity Hospitals Geauga Medical Centerveland Clinic LabsParkwood HospitalReference Lab Test NameSignaterGrant HospitalReporting Documentation 1View results in Scanned Documents link when availableParkwood HospitalNucleated RBC Auto (Bld) [#/Vol]on 69-38-5994Tbpjwdodw RBC (Bld) [#/Vol]Nucleated erythrocytes [#/volume] in Blood by Automated count<0.01[facility] Nucleated erythrocytes [Presence] in Blood by Automated counton 08-19-2024 Nucleated RBC Auto Ql (Bld)Nucleated erythrocytes [Presence] in Blood by Automated countParkwood HospitalPlatelet mean volume Auto (Bld) [Entitic vol]on 10-40-4174Kjdnyscp mean volume (Bld) [Entitic vol]Platelet mean volume [Entitic volume] in Blood by Automated countLow9.0-12.7FMcCullough-Hyde Memorial HospitalPlatelets Auto (Bld) [#/Vol]on 89-97-1101Wlnggzbef (Bld) [#/Vol] Platelets [#/volume] in Blood by Automated -017KiqjswqchParkwood HospitalProtein [Mass/volume] in Serum or Plasmaon 73-98-1182Ohmfmdn [Mass/Vol]Protein [Mass/volume] in Serum or Plasma6.3-8.0[facility] HospitalRBC Auto (Bld) [#/Vol]on 94-36-9310VMH (Bld) [#/Vol]Erythrocytes [#/volume] in Blood by Automated count3.90-5.20[facility] Serum or plasma anion gap determinationon 55-10-9295Ewwdy gap [Moles/Vol]Serum or plasma anion gap determination8[facility] Cholesterol [Mass/volume] in Serum or PlasmaOrdered By: Charles Bazzi on 06-04-2024 Cholesterol [Mass/Vol]Cholesterol [Mass/volume] in Serum or Zoidrj623-982 Parkwood HospitalComment on above:Chol less than 200 mg/dl low riskChol 201-239 mg/dl borderline riskChol 240 mg/dl and greater high risk Cholesterol in HDL [Mass/volume] in Serum or PlasmaOrdered By: Cahrles Bazzi on 37-14-7060Gdesbzgnoeg in HDL [Mass/Vol]Serum or plasma high density lipoprotein (HDL) cholesterol jkvfdcdedoa23-87DpyelkkodParkwood HospitalComment on above:HDL CHOL ATP-III CLASSIFICATION Cardiovascular RiskHDL > or equal to 60 mg/dL LOWHDL < 40 mg/dL HIGHCholesterol in LDL Calc [Mass/Vol]Ordered By: Charles Bazzi on 74-23-0065Wyaydhmxudw in LDL [Mass/Vol]Cholesterol in LDL [Mass/volume] in Serum or Plasma by calculationParkwood HospitalComment on above:LDL ATP III CLASSIFICATIONLDL less than 100 mg/dL OptimalLDL 100-129 mg/dL Near or above gemdbgxUEW724-254 mg/dL Borderline highLDL 160-189 mg/dL HighLDL greater than 189 mg/dL Very highCholesterol in VLDL Calc [Mass/Vol] Ordered By: Charles Bazzi on 74-27-9799Tusvfmwcroe in VLDL [Mass/Vol]Cholesterol in VLDL [Mass/volume] in Serum or Plasma by calculationParkwood HospitalLipid Panelon 85-33-9133Tyqzottpvsu [Mass/Vol]171 mg/iQKagmfa713-946Nlv [facility] Physician GroupComment on above:Result Comment: Chol less than 200 mg/dl low risk Chol 201-239 mg/dl borderline risk Chol 240 mg/dl and greater high riskPerformed By: #### TSH3, LIPID #### [facility] [address] [place] [address] USACholesterol in HDL [Mass/Vol]56 mg/dLMpimit82-72Sbr [facility] Physician GroupComment on above:Result Comment: HDL CHOL ATP-III CLASSIFICATION Cardiovascular Risk HDL > or equal to 60 mg/dL LOW HDL < 40 mg/dL HIGHPerformed By: #### TSH3, LIPID #### [facility] [address] [place] [address] USACholesterol.total/Cholesterol in HDL [Mass ratio]3.1 {ratio}Normal<5.0The [facility] Physician GroupComment on above:Performed By: #### TSH3, LIPID #### [facility] [address] [place] [id number] USALDL Cholesterol,Ofxmqjmrlx83 mg/dLNormal0-100The [facility] Physician GroupComment on above:Result Comment: LDL ATP III CLASSIFICATION LDL less than 100 mg/dL Optimal LDL 100-129 mg/dL Near or above optimal LDL 130-159 mg/dL Borderline high LDL 160-189 mg/dL High LDL greater than 189 mg/dL Very highPerformed By: #### TSH3, LIPID #### [facility] [address] [place] [address] USATriglyceride w/Jntpfr239 mg/dLNormal0-149The [facility] Physician GroupComment on above:Result Comment: TRIG ATP III CLASSIFICATION TRIG less than 150 mg/dL Normal TRIG 150-199 mg/dL Borderline high TRIG 200-500 mg/dL High TRIG greater than 500 mg/dL Very high Standard traceable to the Center for Disease Conrtrol and Prevention (CDC) test method.Performed By: #### TSH3, LIPID #### [place] [address] USAVLDL YOTOPEPFYEA42 mg/dLNormalThe [facility] Physician GroupComment on above:Performed By: #### TSH3, LIPID #### [place] [address] USASerum or plasma total cholesterol/high density lipoprotein (HDL) cholesterol mass ratOrdered By: Charles Bazzi on 06-04-2024 Cholesterol.total/Cholesterol in HDL [Mass ratio]Serum or plasma total cholesterol/high density lipoprotein (HDL) cholesterol mass rat<5.0Parkwood HospitalThyroid Stimulating Hormoneon 09-00-9438TNJ Qn1.94 m[IU]/LNormal0.45-5.33The [facility] Physician GroupComment on above:Result Comment: PERFORMED BY: [place] [address] PATHOLOGIST MARRIAGE AND FAMILY THERAPIST NICOLE SOW M.D.Performed By: #### TSH3, LIPID #### [place] [id number] USAThyrotropin [Units/volume] in Serum or PlasmaOrdered By: Charles Bazzi on 82-45-6851AOI QnThyrotropin [Units/volume] in Serum or Plasma 0.45-5.33Parkwood HospitalTriglyceride [Mass/volume] in Serum or PlasmaOrdered By: Charles Bazzi on 56-82-7360Urksplxewfnq [Mass/Vol]Triglyceride [Mass/volume] in Serum or Plasma0-149Parkwood HospitalComment on above:TRIG ATP III CLASSIFICATIONTRIG less than 150 mg/dL NormalTRIG 150-199 mg/dL Borderline highTRIG 200-500 mg/dL High TRIG greater than 500 mg/dL Very highStandard traceable to the Center for Disease Conrtrol and Prevention (CDC) test method.Aerobic Cultureon 84-86-2369Mclppmy CultureComment right middle finger culture ORGANISM: Methicillin [...] RESISTANT TO ALL B-LACTAM DRUGS. PERFORMED BY: [facility] [address] [place] [address] PATHOLOGIST MARRIAGE AND FAMILY THERAPIST NICOLE SOW M.D.NormalThe [facility] Physician GroupComment on above: Performed By: #### AERC #### [facility] [address] [place] [address] USAAnaerobic cultureOrdered By: Amanda Chester on 05-31-2024 Bacteria identified Anaer cx Nom (Unsp spec)Anaerobic cultureParkwood HospitalBacteria identified Aer cx Nom (Unsp spec)Ordered By: Amanda Chester on 31-31-0936Nplhdmf CultureAbnormalParkwood HospitalGram stain microscopyOrdered By: Amanda Chester on 12-89-3543Xuwqutampbj observation Gram stain Nom (Unsp spec)Gram stain microscopyParkwood HospitalXR hand RT min 3V*on 79-98-3839QB hand RT min 3V*[facility] [address] [place] [address] XRay Report Signed Patient: Evan Gill MR#: [id number] [birth year] : 1955 Acct:[id number] Age/Sex: 68 / F ADM Date: 05/30/24 [place] [facility] [place]: Type: [facility] Attending Dr: Jorge A Haji DO Copies [...] Cameron Lares M.D.05/30/2024 4:14 PM Dictation Location: [place] [address] Transcribed By: [facility] 05/30/24 1614 Dictated By: Cameron Lares DO 05/30/24 1600 Signed By: 05/30/24 1614[facility] Physician GroupBasophils Auto (Bld) [#/Vol] Ordered By: Chris Henning on 71-27-2343Eaiznfwbw (Bld) [#/Vol]Automated basophil count0.0-0.2FMcCullough-Hyde Memorial HospitalBasophils/100 WBC Auto (Bld)Ordered By: Chris Henning on 94-56-9751Igznnnvkv/100 WBC (Bld)Automated basophil %.Parkwood HospitalBlood Cultureon 04-77-9324Ynvzdlvb identified Cx Nom (Bld)Blood Culture Results No Growth 5 Days PERFORMED BY: [place] [address] PATHOLOGIST MARRIAGE AND FAMILY THERAPIST NICOLE SOW M.D.NormalThe [facility] Physician GroupComment on above: Performed By: #### BMP, CBC #### [facility] [address] [place] [address] USABacteria identified Cx Nom (Bld)Blood Culture Results No Growth 5 Days PERFORMED BY: [place] [address] PATHOLOGIST MARRIAGE AND FAMILY THERAPIST NICOLE SOW M.D.NormalThe [facility] Physician GroupComment on above: Performed By: #### BMP, CBC #### [facility] [address] [place] [address] USAComplete Blood Count Auto Diffon 01-23-4647Kwuinttga (Bld) [#/Vol]0.1 10*3/uLNormal0.0-0.2The [facility] Physician GroupComment on above: Result Comment: PERFORMED BY: [place] [address] PATHOLOGIST MARRIAGE AND FAMILY THERAPIST NICOLE SOW M.D.Performed By: #### BMP, CBC #### [place] [address] USABasophils/100 WBC (Bld)0.8 %Normal.The [facility] Physician GroupComment on above:Performed By: #### BMP, CBC #### [place] [address] USAEosinophils (Bld) [#/Vol]0.2 10*3/uLNormal0.0-0.45The [facility] Physician GroupComment on above:Performed By: #### BMP, CBC #### [place] [address] USAEosinophils/100 WBC (Bld)1.6 %Normal.The [facility] Physician GroupComment on above:Performed By: #### BMP, CBC #### [place] [address] USAErythrocyte distribution width (RBC) [Ratio]14.9 %Normal 11.9-15.3The [facility] Physician GroupComment on above:Performed By: #### BMP, CBC #### [place] [address] USAHematocrit (Bld) [Volume fraction]32.5 %Low34.0-46.4The [facility] Physician GroupComment on above:Performed By: #### BMP, CBC #### [place] [address] USAHemoglobin (Bld) [Mass/Vol]11.0 g/dLLow11.8-15.4The [facility] Physician GroupComment on above:Performed By: #### BMP, CBC #### [place] [address] USALymphocytes (Bld) [#/Vol]0.8 10*3/uLLow1.00-4.8The [facility] Physician GroupComment on above:Performed By: #### BMP, CBC #### [address] [place] [address] USALymphocytes/100 WBC (Bld)9.1 %Normal.The [facility] Physician GroupComment on above:Performed By: #### BMP, CBC #### [address] (RBC) [Entitic mass]30.3 dbXpkopf56.7-34.3The [facility] Physician GroupComment on above:Performed By: #### BMP, CBC #### [address] (RBC) [Entitic vol]89.9 aGXpzemg15-938Coj [facility] Physician GroupComment on above:Performed By: #### BMP, CBC #### [place] [address] USAMean Corpuscular HGB Conc33.7 g/bKSgqbnl50.0-35.0The [facility] Physician GroupComment on above:Performed By: #### BMP, CBC #### [place] [address] USAMonocytes (Bld) [#/Vol]0.8 10*3/uLNormal0.0-0.8The [facility] Physician GroupComment on above:Performed By: #### BMP, CBC #### [place] [address] USAMonocytes/100 WBC (Bld)20.76 %High0.00-20.00The [facility] Physician GroupComment on above:Result Comment: For adults in ED, MDW > 20.0 may be associated with a higher risk of sepsis during the first 12 hrs of hospital admissionPerformed By: #### BMP, CBC #### [place] [address] USAMonocytes/100 WBC (Bld)8.2 %Normal.The [facility] Physician GroupComment on above:Performed By: #### BMP, CBC #### [place] [address] USANeutrophils (Bld) [#/Vol]7.4 10*3/uLNormal1.8-7.7The [facility] Physician GroupComment on above:Performed By: #### BMP, CBC #### [place] [address] USANeutrophils/100 WBC (Bld)80.3 %Normal.The [facility] Physician GroupComment on above:Performed By: #### BMP, CBC #### [facility] [address] [place] [address] USANRBC%0.0 /100{WBC}Normal0-0.5The [facility] Physician Group Comment on above:Performed By: #### BMP, CBC #### [place] [address] USAPlatelet mean volume (Bld) [Entitic vol]7.0 fLNormal 6.3-10.7The [facility] Physician GroupComment on above:Performed By: #### BMP, CBC #### [place] [address] USAPlatelets (Bld) [#/Vol]265 10*3/rKTufmik663-911Qxm [facility] Physician GroupComment on above:Performed By: #### BMP, CBC #### [place] [address] USARBC (Bld) [#/Vol]3.61 10*6/uLNormal3.60-5.00The [facility] Physician GroupComment on above:Performed By: #### BMP, CBC #### [place] [address] USAWBC (Bld) [#/Vol]9.2 10*3/uLNormal3.8-11.6The [facility] Physician GroupComment on above:Performed By: #### BMP, CBC #### [place] [address] USAEosinophils Auto (Bld) [#/Vol]Ordered By: Chris Henning on 21-40-2291Ykrwrgwvmlx (Bld) [#/Vol]Automated eosinophil count0.0-0.45 [facility] HospitalEosinophils/100 WBC Auto (Bld)Ordered By: Chris Henning on 16-16-4337Imnpieudgyy/100 WBC (Bld)Automated eosinophil %. [facility]wood HospitalErythrocyte distribution width Auto (RBC) [Ratio]Ordered By: Chris Henning on 08-95-0718Mllurbspctc distribution width (RBC) [Ratio]Erythrocyte distribution width [Ratio] by Automated count11.9-15.3 [facility] HospitalHematocrit Auto (Bld) [Volume fraction]Ordered By: Chris Henning on 25-45-1072Jzlxonhzai (Bld) [Volume fraction]Hematocrit [Volume Fraction] of Blood by Automated rqjpwKjz63.0-46.4FMcCullough-Hyde Memorial HospitalHemoglobin [Mass/volume] in BloodOrdered By: Chris Henning on 06-48-1740Miwperzlpo (Bld) [Mass/Vol]Hemoglobin [Mass/volume] in BloodLow 11.8-15.4FMcCullough-Hyde Memorial HospitalLaboratory - Microbiology and Antimicrobial susceptibilityOrdered By: Chris Henning on 04-15-3339Rcwvvqwn identified Cx Nom (Bld)[facility] HospitalBacteria identified Cx Nom (Bld)[facility] HospitalLeukocytes [#/volume] corrected for nucleated erythrocytes in Blood by Automated counOrdered By: Chris Henning on 38-48-1846KFG corrected for nucl RBC Auto (Bld) [#/Vol]Leukocytes [#/volume] corrected for nucleated erythrocytes in Blood by Automated coun3.8-11.6FMcCullough-Hyde Memorial HospitalLymphocytes Auto (Bld) [#/Vol]Ordered By: Chris Henning on 46-46-7989Gghubwnojsh (Bld) [#/Vol]Lymphocytes [#/volume] in Blood by Automated countLow1.00-4.8[facility] HospitalLymphocytes/100 WBC Auto (Bld)Ordered By: Chris Henning on 03-68-0004Jmvtdycrvtk/100 WBC (Bld) Lymphocytes/100 leukocytes in Blood by Automated count.[facility] HospitalMCH Auto (RBC) [Entitic mass]Ordered By: hCris Henning on 61-32-4291BVH (RBC) [Entitic mass]MCH [Entitic mass] by Automated count24.7-34.3 [facility] HospitalMCHC Auto (RBC) [Mass/Vol]Ordered By: Chris Henning on 98-03-3581JOMD (RBC) [Mass/Vol]MCHC [Mass/volume] by Automated count 32.0-35.0[facility] HospitalMCV Auto (RBC) [Entitic vol]Ordered By: Chris Henning on 22-33-0943VTX (RBC) [Entitic vol]MCV [Entitic volume] by Automated umhea10-206DrqsnrptbParkwood HospitalMonocyte distribution width [Entitic volume] in Blood by AutomatedOrdered By: Chris Henning on 86-85-6544Pcddiveo distribution width Auto (Bld) [Entitic vol]Monocyte distribution width [Entitic volume] in Blood by AutomatedHigh0.00-20.00[facility] HospitalComment on above:For adults in ED, MDW > 20.0 may be associated with a higher risk of sepsis during the first 12 hrs of hospital admissionMonocytes Auto (Bld) [#/Vol]Ordered By: Chris Henning on 05-23-2024 Monocytes (Bld) [#/Vol]Automated blood monocyte count0.0-0.8[facility] HospitalMonocytes/100 WBC Auto (Bld)Ordered By: Chris Henning on 64-97-9843Ipdppgjkb/100 WBC (Bld)Automated monocyte %.[facility] HospitalNeutrophils Auto (Bld) [#/Vol]Ordered By: Chris Henning on 05-23-2024 Neutrophils (Bld) [#/Vol]Neutrophils [#/volume] in Blood by Automated count 1.8-7.7FMcCullough-Hyde Memorial HospitalNeutrophils/100 WBC Auto (Bld)Ordered By: Chris Henning on 02-14-5634Lrjfmanbplv/100 WBC (Bld)Automated neutrophil %. [facility] HospitalNucleated erythrocytes [Presence] in Blood by Automated countOrdered By: Chris Henning on 95-47-7910Oaaltljkw RBC Auto Ql (Bld)Nucleated erythrocytes [Presence] in Blood by Automated count0-0.5FMcCullough-Hyde Memorial HospitalPlatelet mean volume Auto (Bld) [Entitic vol]Ordered By: Chris Henning on 49-79-2881Xbjdctky mean volume (Bld) [Entitic vol]Platelet mean volume [Entitic volume] in Blood by Automated count6.3-10.7FMcCullough-Hyde Memorial HospitalPlatelets Auto (Bld) [#/Vol]Ordered By: Chris Henning on 99-88-5186Lnizyvtqc (Bld) [#/Vol]Platelets [#/volume] in Blood by Automated beddl834-203IkgwgihfdParkwood HospitalRBC Auto (Bld) [#/Vol]Ordered By: Chris Henning on 22-61-9217XWB (Bld) [#/Vol]Erythrocytes [#/volume] in Blood by Automated count3.60-5.00[facility] HospitalWBC Auto (Bld) [#/Vol] Ordered By: Chris Henning on 60-39-7559IEY (Bld) [#/Vol]Leukocytes [#/volume] in Blood by Automated count3.8-11.6FMcCullough-Hyde Memorial HospitalBasic Metabolic Panelon 04-20-1506Wskxg gap [Moles/Vol]13.0 mmol/LNormal6.0-15.0The [facility] Physician GroupComment on above:Performed By: #### BMP, CBC #### [facility] [address] [place] [address] USACalcium [Mass/Vol]8.2 mg/dLLow8.6-10.3The [facility] Physician GroupComment on above:Performed By: #### BMP, CBC #### [facility] [address] [place] [address] USAChloride [Moles/Vol]106 mmol/EJdnkln56-953Rov [facility] Physician GroupComment on above:Performed By: #### BMP, CBC #### [facility] [address] [place] [address] USACO2 [Moles/Vol]23.6 mmol/CWmorig87.0-31.0The [facility] Physician GroupComment on above:Performed By: #### BMP, CBC #### [facility] [address] [place] [id number] USACreatinine [Mass/Vol]0.56 mg/dLLow0.60-1.20The [facility] Physician GroupComment on above:Performed By: #### BMP, CBC #### [facility] [address] [place] [address] USACreatinine Clr Calc Jsfnmvsp25.82NormalThe [facility] Physician GroupComment on above:Result Comment: PERFORMED BY: [place] [address] PATHOLOGIST MARRIAGE AND FAMILY THERAPIST NICOLE SOW M.D.Performed By: #### BMP, CBC #### [place] [address] USAGFR/1.73 sq M.predicted MDRD (S/P/Bld) [Vol rate/Area] mL/min/{1.73_m2}NormalThe [facility] Physician GroupComment on above:Performed By: #### BMP, CBC #### [place] [address] USAGlucose [Mass/Vol]129 mg/iDFmwq59-312Iuy [facility] Physician GroupComment on above:Result Comment: Random Glucose Reference Range is dependent on time and content of last meal. Glucose of more than 200 mg/dL in a nonstressed, ambulatory subject supports the diagnosis of Diabetes Mellitus. ADA recommended reference rangePerformed By: #### BMP, CBC #### [place] [address] USAPotassium [Moles/Vol]3.6 mmol/LNormal3.5-5.1The [facility] Physician GroupComment on above:Performed By: #### BMP, CBC #### [place] [address] USASodium [Moles/Vol]139 mmol/ZPglidp512-059Xbi [facility] Physician GroupComment on above:Performed By: #### BMP, CBC #### [place] [address] USAUrea nitrogen [Mass/Vol]18 mg/dLNormal7-25The [facility] Physician GroupComment on above:Performed By: #### BMP, CBC #### [address] [place] [address] USABasophils Auto (Bld) [#/Vol]Ordered By: Chris Henning on 52-76-4809Yugaocyfh (Bld) [#/Vol]Automated basophil count0.0-0.2FMcCullough-Hyde Memorial HospitalBasophils/100 WBC Auto (Bld)Ordered By: Chris Hennnig on 87-51-8709Oytlqdsio/100 WBC (Bld)Automated basophil %.[facility]wood HospitalBlood Cultureon 31-50-4112Zakfcbhy identified Cx Nom (Bld)NO GROWTH 5 DAYS PERFORMED BY: [address] [place] [address] PATHOLOGIST MARRIAGE AND FAMILY THERAPIST NICOLE SOW M.D.NormalThe [facility] Physician GroupComment on above: Performed By: #### BMP, CBC #### [place] [id number] USABacteria identified Cx Nom (Bld)Results called at [...] Not detected Streptococcus pneumoniae - reported at [facility] Not detected Proteus sp DNA [Presence] [...] culture Not detected Group A (Streptococcus pyogenes) [id number] Not detected Group B Strep (Streptococcus agalactiae) [...] I = I (more content not included)...NormalThe [facility] Physician GroupComment on above:Performed By: #### BMP, CBC #### [facility] [address] [place] [address] USACalcium [Mass/volume] in Serum or PlasmaOrdered By: Chris Henning on 87-96-4518Oheihzg [Mass/Vol]Calcium [Mass/volume] in Serum or PlasmaLow8.6-10.3FMcCullough-Hyde Memorial HospitalCarbon dioxide, total [Moles/volume] in Serum or PlasmaOrdered By: Chris Henning on 73-44-6611FY1 [Moles/Vol]Carbon dioxide, total [Moles/volume] in Serum or Uvsvnt87.0-31.0 [facility]wood HospitalChloride [Moles/volume] in Serum or Plasma Ordered By: Chris Henning on 11-66-0107Psqvmkhi [Moles/Vol]Chloride [Moles/volume] in Serum or Snmgxo47-983TbfmedjjvParkwood HospitalComplete Blood Count Auto Diffon 34-70-9269Tgbilffwj (Bld) [#/Vol]0.1 10*3/uLNormal 0.0-0.2The [facility] Physician GroupComment on above:Result Comment: PERFORMED BY: [facility] [address] [place] [address] PATHOLOGIST MARRIAGE AND FAMILY THERAPIST NICOLE SOW M.D.Performed By: #### BMP, CBC #### [facility] [address] [place] [address] USABasophils/100 WBC (Bld)0.6 %Normal.The [facility] Physician GroupComment on above:Performed By: #### BMP, CBC #### [facility] [address] [place] [address] USAEosinophils (Bld) [#/Vol]0.1 10*3/uLNormal0.0-0.45The [facility] Physician GroupComment on above:Performed By: #### BMP, CBC #### [facility] [address] [place] [address] USAEosinophils/100 WBC (Bld)1.1 %Normal.The [facility] Physician GroupComment on above:Performed By: #### BMP, CBC #### [place] [address] USAErythrocyte distribution width (RBC) [Ratio]14.3 %Normal 11.9-15.3The [facility] Physician GroupComment on above:Performed By: #### BMP, CBC #### [place] [address] USAHematocrit (Bld) [Volume fraction]34.5 %Hnnlqp92.0-46.4The [facility] Physician GroupComment on above:Performed By: #### BMP, CBC #### [place] [address] USAHemoglobin (Bld) [Mass/Vol]11.7 g/dLLow11.8-15.4The [facility] Physician GroupComment on above:Performed By: #### BMP, CBC #### [place] [address] USALymphocytes (Bld) [#/Vol]0.9 10*3/uLLow1.00-4.8The [facility] Physician GroupComment on above:Performed By: #### BMP, CBC #### [place] [id number] USALymphocytes/100 WBC (Bld)9.0 %Normal.The [facility] Physician GroupComment on above:Performed By: #### BMP, CBC #### [address] (RBC) [Entitic mass]30.3 ucVvsxrs61.7-34.3The [facility] Physician GroupComment on above:Performed By: #### BMP, CBC #### [place] [address] USAMCV (RBC) [Entitic vol]89.5 eUXnqgkg63-462Xpm [facility] Physician GroupComment on above:Performed By: #### BMP, CBC #### [place] [address] USAMean Corpuscular HGB Conc33.9 g/jDRdofpw36.0-35.0The [facility] Physician GroupComment on above:Performed By: #### BMP, CBC #### [place] [address] USAMonocytes (Bld) [#/Vol]0.8 10*3/uLNormal0.0-0.8The [facility] Physician GroupComment on above:Performed By: #### BMP, CBC #### [place] [address] USAMonocytes/100 WBC (Bld)19.47 %Normal0.00-20.00The [facility] Physician GroupComment on above:Performed By: #### BMP, CBC #### [place] [address] USAMonocytes/100 WBC (Bld)7.4 %Normal.The [facility] Physician GroupComment on above:Performed By: #### BMP, CBC #### [place] [address] USANeutrophils (Bld) [#/Vol]8.5 10*3/uLHigh1.8-7.7The [facility] Physician GroupComment on above:Performed By: #### BMP, CBC #### [place] [address] USANeutrophils/100 WBC (Bld)81.9 %Normal.The [facility] Physician GroupComment on above:Performed By: #### BMP, CBC #### [place] [address] USANRBC%0.0 /100{WBC}Normal0-0.5The [facility] Comment on above:Performed By: #### BMP, CBC #### [facility] [address] [place] [address] USAPlatelet mean volume (Bld) [Entitic vol]6.8 fLNormal 6.3-10.7The [facility] Physician GroupComment on above:Performed By: #### BMP, CBC #### [place] [address] USAPlatelets (Bld) [#/Vol]265 10*3/dJGwlsrt418-305Abv [facility] Physician GroupComment on above:Performed By: #### BMP, CBC #### [facility] [address] [place] [address] USARBC (Bld) [#/Vol]3.85 10*6/uLNormal3.60-5.00The [facility] Physician GroupComment on above:Performed By: #### BMP, CBC #### [place] [address] USAWBC (Bld) [#/Vol]10.4 10*3/uLNormal3.8-11.6The [facility] Physician GroupComment on above:Performed By: #### BMP, CBC #### [place] [address] USACreatinine [Mass/volume] in Serum or PlasmaOrdered By: Chris Henning on 06-01-0257Pvsjnarnun [Mass/Vol]Creatinine [Mass/volume] in Serum or PlasmaLow0.60-1.20[facility] HospitalEosinophils Auto (Bld) [#/Vol]Ordered By: Chris Henning on 49-74-2736Jxdfltkxvng (Bld) [#/Vol] Automated eosinophil count0.0-0.45[facility] Eosinophils/100 WBC Auto (Bld)Ordered By: Chris Henning on 05-22-2024 Eosinophils/100 WBC (Bld)Automated eosinophil %.[facility] HospitalErythrocyte distribution width Auto (RBC) [Ratio]Ordered By: Chris Henning on 30-05-6348Qqdrhbnavol distribution width (RBC) [Ratio]Erythrocyte distribution width [Ratio] by Automated count11.9-15.3FMcCullough-Hyde Memorial HospitalGlucose [Mass/volume] in Serum or PlasmaOrdered By: Chris Henning on 13-85-0309Fmomdvv [Mass/Vol]Glucose [Mass/volume] in Serum or UwhladQvzx35-478 [facility] HospitalComment on above:ADA recommended reference rangeRandom Glucose Reference Range is dependent on time and content of last meal. Glucose of more than 200 mg/dL in a nonstressed, ambulatory subject supports the diagnosisof Diabetes Mellitus.Hematocrit Auto (Bld) [Volume fraction]Ordered By: Chris Henning on 36-18-6020Qsiolwsmep (Bld) [Volume fraction]Hematocrit [Volume Fraction] of Blood by Automated count34.0-46.4 [facility] HospitalHemoglobin [Mass/volume] in BloodOrdered By: Chris Henning on 03-43-7569Hprskaftcg (Bld) [Mass/Vol]Hemoglobin [Mass/volume] in TsoqtVlf16.8-15.4FMcCullough-Hyde Memorial HospitalLaboratory - Microbiology and Antimicrobial susceptibilityOrdered By: Chris Henning on 78-16-8762Tyothldl identified Cx Nom (Bld)NO GROWTH 5 DAYSParkwood Hospital Bacteria identified Cx Nom (Bld)AbnormalParkwood Hospital Leukocytes [#/volume] corrected for nucleated erythrocytes in Blood by Automated counOrdered By: Chris Henning on 99-32-7365YMR corrected for nucl RBC Auto (Bld) [#/Vol]Leukocytes [#/volume] corrected for nucleated erythrocytes in Blood by Automated coun3.8-11.6FMcCullough-Hyde Memorial HospitalLymphocytes Auto (Bld) [#/Vol]Ordered By: Chris Henning on 80-95-8483Cpthdqpauuj (Bld) [#/Vol] Lymphocytes [#/volume] in Blood by Automated countLow1.00-4.8[facility] HospitalLymphocytes/100 WBC Auto (Bld)Ordered By: Chris Henning on 76-00-4028Jentoieoqpw/100 WBC (Bld)Lymphocytes/100 leukocytes in Blood by Automated count.[facility] CenterH Auto (RBC) [Entitic mass] Ordered By: Chris Henning on 74-92-4519FEH (RBC) [Entitic mass]MCH [Entitic mass] by Automated count24.7-34.3FMcCullough-Hyde Memorial HospitalMCHC Auto (RBC) [Mass/Vol]Ordered By: Chris Henning on 48-22-7557BXDR (RBC) [Mass/Vol] MCHC [Mass/volume] by Automated count32.0-35.0[facility] MCV Auto (RBC) [Entitic vol]Ordered By: Chris Henning on 11-89-0307RZX (RBC) [Entitic vol]MCV [Entitic volume] by Automated rcrxe02-886BvoxmsjviParkwood HospitalMonocyte distribution width [Entitic volume] in Blood by Automated Ordered By: Chris Henning on 63-98-0495Pyxjtxho distribution width Auto (Bld) [Entitic vol]Monocyte distribution width [Entitic volume] in Blood by Automated 0.00-20.00[facility] HospitalMonocytes Auto (Bld) [#/Vol]Ordered By: Chris Henning on 82-38-5480Ymqthhrup (Bld) [#/Vol]Automated blood monocyte count0.0-0.8Park[facility] HospitalMonocytes/100 WBC Auto (Bld)Ordered By: Chris Henning on 78-96-2333Sysigdnvx/100 WBC (Bld)Automated monocyte %. [facility] HospitalNeutrophils Auto (Bld) [#/Vol]Ordered By: Chris Henning on 43-60-7232Pixxpnfsrxt (Bld) [#/Vol]Neutrophils [#/volume] in Blood by Automated countHigh1.8-7.7FMcCullough-Hyde Memorial Hospital Neutrophils/100 WBC Auto (Bld)Ordered By: Chris Henning on 05-22-2024 Neutrophils/100 WBC (Bld)Automated neutrophil %.Parkwood HospitalNo Panel InformationOrdered By: Chris Henning on 31-16-9131Qgviifdlk ID (NA Multiplex Assay)[facility]wood HospitalEstimated GFR (CKD-EPI)> 60.0 mL/MinParkwood HospitalPharmacy Creatinine Clearance (Chem 63.82Park[facility] HospitalNucleated erythrocytes [Presence] in Blood by Automated countOrdered By: Chris Henning on 77-70-4874Ebfrmrgvx RBC Auto Ql (Bld)Nucleated erythrocytes [Presence] in Blood by Automated count0-0.5 [facility] HospitalPlatelet mean volume Auto (Bld) [Entitic vol] Ordered By: Chris Henning on 89-15-4019Clswaegq mean volume (Bld) [Entitic vol] Platelet mean volume [Entitic volume] in Blood by Automated count6.3-10.7 [facility] HospitalPlatelets Auto (Bld) [#/Vol]Ordered By: Chris Henning on 14-09-4513Vhdifjcsu (Bld) [#/Vol]Platelets [#/volume] in Blood by Automated -347LxovmttgkParkwood HospitalPotassium [Moles/volume] in Serum or PlasmaOrdered By: Chris Henning on 49-94-4866Vydeeuttg [Moles/Vol] Potassium [Moles/volume] in Serum or Plasma3.5-5.1FMcCullough-Hyde Memorial HospitalRBC Auto (Bld) [#/Vol]Ordered By: Chris Henning on 47-06-6559NNE (Bld) [#/Vol]Erythrocytes [#/volume] in Blood by Automated count3.60-5.00[facility]orial Health Systemerum or plasma anion gap determinationOrdered By: Chris Henning on 40-50-7146Ujclx gap [Moles/Vol]Serum or plasma anion gap determination6.0-15.0[facility]orial Health Systemodium [Moles/volume] in Serum or PlasmaOrdered By: Chris Henning 02-08-4040Uxbmei [Moles/Vol]Sodium [Moles/volume] in Serum or Phqjqz710-480XhzdrqbhmParkwood HospitalUrea nitrogen [Mass/volume] in Serum or PlasmaOrdered By: Chris Henning 92-26-0323Qevm nitrogen [Mass/Vol]Urea nitrogen [Mass/volume] in Serum or Plasma 01-31Park[facility] HospitalWBC Auto (Bld) [#/Vol]Ordered By: Chris Henning on 08-01-0838ZGH (Bld) [#/Vol]Leukocytes [#/volume] in Blood by Automated count3.8-11.6FMcCullough-Hyde Memorial HospitalX-ray reportOrdered By: Princess Sanchez on 93-99-7217Wqwyd reportPROMEDICA [facility]FI[facility] [place] [address] [place] [address] XRay Report Signed Patient: Evan Gill MR#: [id number] : 1955 Acct:[id number] Age/Sex: 68 / F ADM Date: 4 Loc: ER Room: Type: [facility] ER Attending Dr: Copies to: Chris [...] Princess Sanchez M.D.05/22/2024 12:50 PM Dictation Location: [place] [address] Transcribed By: [facility] 05/22/24 1250 Dictated By: Princess aSnchez MD 05/22/24 1240 Signed By: 05/22/24 6867 [facility] Work Phone: XR finger RT 3rd digiton 43-04-4298NS finger RT 3rd digitPROMEDICA DEFIANCE REG[facility] [place] [address] [place] [address] XRay Report Signed Patient: Evan Gill MR#: [id number] : 1955 Acct:[id number] Age/Sex: 68 / F ADM Date: 05/22/24 Loc: ER Room: Type: [facility] ER Attending Dr: Copies to: Chris [...] Princess Sanchez M.D.05/22/2024 12:50 PM Dictation Location: [place] [address] Transcribed By: [facility] 05/22/24 1250 Dictated By: Princess Sanchez MD 05/22/24 124 Signed By: 05/22/24 1250[facility] Phys[facility] GroupBasophils Auto (Bld) [#/Vol]on 71-16-7354Fwzqlngxo (Bld) [#/Vol]Automated basophil count<0.11[facility] HospitalBasophils/100 WBC Auto (Bld)on 17-43-0514Kootwlxvm/100 WBC (Bld) Automated basophil %Parkwood HospitalBlood manual differential comment interpretation narrativeon 02-24-5435Wvmaae differential comment Ankush (Bld) [Interp]Blood manual differential comment interpretation narrative [facility] HospitalCBC W Auto Differential panel (Bld)on 45-11-0896Cvuwebbui (Bld) [#/Vol]0.06 10*3/uLNormal<0.11[facility]on HospitalComment on above:Order Comment: Specimen Type: BLOOD SPECIMEN Ordering Facility: [facility] Address: [address] [place], [place] [address]Performed By: #### 29825-2 #### [facility] CLIA [id number] [address] [place] [address] [place] AMERICABasophils/100 WBC (Bld)1.0 %NormalAv HospitalComment on above:Order Comment: Specimen Type: BLOOD SPECIMEN Ordering Facility: [facility] Address: [address] [place], [place] [address]Performed By: #### 70725-0 #### [facility] CLIA [id number] [address] [place] [address] [place] AMERICADifferential cell count method Nom (Bld) AutoNormalAvon HospitalComment on above:Order Comment: Specimen Type: BLOOD SPECIMEN Ordering Facility: [facility] Address: [address] [place], [place] [address]Performed By: #### 32327-4 #### [facility] CLIA [id number] [address] [place] [address] [place] AMERICAEosinophils (Bld) [#/Vol]0.28 10*3/uL Normal<0.46Avon HospitalComment on above:Order Comment: Specimen Type: BLOOD SPECIMEN Ordering Facility: [facility] Address: [address] [place], [place] [address]Performed By: #### 85935-8 #### [facility] CLIA [id number] [address] [place] [address] [place] AMERICAEosinophils/100 WBC (Bld)4.5 %NormalAv HospitalComment on above:Order Comment: Specimen Type: BLOOD SPECIMEN Ordering Facility: [facility] Address: [address] [place], [place] [address]Performed By: #### 36476-4 #### [facility] [place] [id number] [address] [place] [address] [place] AMERICAErythrocyte distribution width (RBC) [Ratio]14.1 %Lcknlm60.5-15.0Av HospitalComment on above:Order Comment: Specimen Type: BLOOD SPECIMEN Ordering Facility: [facility] Address: [address] [place], [place] [address]Performed By: #### 46032-5 #### [facility] IA [id number] [address] [place] [address] [place] AMERICAHematocrit (Bld) [Volume fraction]40.3 % Xcafbc63.0-46.0Av HospitalComment on above:Order Comment: Specimen Type: BLOOD SPECIMEN Ordering Facility: [facility] Address: [address] [place], [place] [address]Performed By: #### 59847-9 #### [facility] IA [id number] [address] [place] [address] [place] AMERICAHemoglobin (Bld) [Mass/Vol]12.5 g/dL Xbafgf63.5-15.5Avon HospitalComment on above:Order Comment: Specimen Type: BLOOD SPECIMEN Ordering Facility: [facility] Address: [address] [place], [place] [address]Performed By: #### 56928-4 #### [facility] IA [id number] [address] [place] [address] [place] AMERICAImmature granulocytes (Bld) [#/Vol] 10*3/uLNormal<0.10Avon HospitalComment on above:Order Comment: Specimen Type: BLOOD SPECIMEN Ordering Facility: [facility] Address: [address] [place], [place] [address]Performed By: #### 07537-7 #### [facility] IA [id number] [address] [place] [address] [place] AMERICAImmature granulocytes/100 WBC (Bld)0.2 % NormalAv HospitalComment on above:Order Comment: Specimen Type: BLOOD SPECIMEN Ordering Facility: [facility] Address: [address] [place], [place] [address]Performed By: #### 93555-8 #### [facility] CLIA [id number] [address] [place] [address] [place] AMERICALymphocytes (Bld) [#/Vol]1.48 10*3/uL Normal1.00-4.00Av HospitalComment on above:Order Comment: Specimen Type: BLOOD SPECIMEN Ordering Facility: [facility] Address: [address] [place], [place] [address]Performed By: #### 71371-6 #### [facility] IA [id number] [address] [place] [address] [place] AMERICALymphocytes/100 WBC (Bld)23.9 %NormalAv HospitalComment on above:Order Comment: Specimen Type: BLOOD SPECIMEN Ordering Facility: [facility] Address: [address] [place], [place] [address]Performed By: #### 27961-6 #### [facility] IA [id number] [address] [place] [address] [facility] (RBC) [Entitic mass]29.5 pgNormal 26.0-34.0Av HospitalComment on above:Order Comment: Specimen Type: BLOOD SPECIMEN Ordering Facility: [facility] Address: [address] [place], [place] [address]Performed By: #### 62623-9 #### [facility] IA [id number] [address] [place] [address] [place] [facility] (RBC) [Mass/Vol]31.0 g/dLNormal 30.5-36.0Av HospitalComment on above:Order Comment: Specimen Type: BLOOD SPECIMEN Ordering Facility: [facility] Address: [address] [place], [place] [address]Performed By: #### 86541-9 #### [facility] IA [id number] [address] [place] [address] [place] AMERICAMCV (RBC) [Entitic vol]95.0 fLNormal 80.0-100.0Av HospitalComment on above:Order Comment: Specimen Type: BLOOD SPECIMEN Ordering Facility: [facility] Address: [address] [place], [place] [address]Performed By: #### 03889-6 #### [facility] IA [id number] [address] [place] [address] [place] AMERICAMonocytes (Bld) [#/Vol]0.41 10*3/uLNormal <0.87Av HospitalComment on above:Order Comment: Specimen Type: BLOOD SPECIMEN Ordering Facility: [facility] Address: [address] [place], [place] [address]Performed By: #### 28228-9 #### [facility] IA [id number] [address] [place] [address] [place] AMERICAMonocytes/100 WBC (Bld)6.6 %NormalAv HospitalComment on above:Order Comment: Specimen Type: BLOOD SPECIMEN Ordering Facility: [facility] Address: [address] [place], [place] [address]Performed By: #### 17362-0 #### [facility] IA [id number] [address] [place] [address] [place] AMERICANeutrophils (Bld) [#/Vol]3.94 10*3/uL Normal1.45-7.50Av HospitalComment on above:Order Comment: Specimen Type: BLOOD SPECIMEN Ordering Facility: [facility] Address: [address] [place], [place] [address]Performed By: #### 98674-3 #### [facility] IA [id number] [address] [place] [address] [place] AMERICANeutrophils/100 WBC (Bld)63.8 %NormalAv HospitalComment on above:Order Comment: Specimen Type: BLOOD SPECIMEN Ordering Facility: [facility] Address: [address] [place], [place] [address]Performed By: #### 50876-4 #### [facility] IA [id number] [address] [facility] [place] [address] [place] AMERICANucleated RBC (Bld) [#/Vol]10*3/uLNormal <0.01Avon HospitalComment on above:Order Comment: Specimen Type: BLOOD SPECIMEN Ordering Facility: [facility] Address: [address] [place], [place] [address]Performed By: #### 53167-8 #### [facility] IA [id number] [address] [place] [address] [place] AMERICANucleated RBC/100 WBC (Bld) [Ratio]0.0 /100 WBCNormalAvon HospitalComment on above:Order Comment: Specimen Type: BLOOD SPECIMEN Ordering Facility: [facility] Address: [address] [place], [place] [address]Performed By: #### 17244-7 #### [facility] IA [id number] [address] [place] [address] [place] AMERICAPlatelet mean volume (Bld) [Entitic vol] 8.8 fLLow9.0-12.7Avon HospitalComment on above:Order Comment: Specimen Type: BLOOD SPECIMEN Ordering Facility: [facility] Address: [address] [place], [place] [address]Performed By: #### 98141-4 #### [facility] IA [id number] [address] [facility] [place] [address] [place] AMERICAPlatelets (Bld) [#/Vol]268 10*3/uLNormal 150-400Avon HospitalComment on above:Order Comment: Specimen Type: BLOOD SPECIMEN Ordering Facility: [facility] Address: [address] [place], [place] [address]Performed By: #### 64049-6 #### [facility] IA [id number] [address] [place] [address] [place] AMERICARBC (Bld) [#/Vol]4.24 10*6/uLNormal 3.90-5.20Avon HospitalComment on above:Order Comment: Specimen Type: BLOOD SPECIMEN Ordering Facility: [facility] Address: [address] [place], [place] [address]Performed By: #### 21144-7 #### [facility] CLIA [id number] [address] [place], [place] [address] [place], [place] [address]WBC (d) [#/Vol]6.18 10*3/uLNormal 3.70-11.00Avon HospitalComment on above:Order Comment: Specimen Type: BLOOD SPECIMEN Ordering Facility: [facility] Address: [address] [place], [place] [address]Performed By: #### 17700-8 #### [facility] IA [id number] [address] [address] [facility] 05-08-2024 Carcinoembryonic Ag [Mass/Vol]2.8 ng/mLNormal<=2.9Avon HospitalComment on above: Order Comment: Specimen Type: BLOOD SPECIMEN Ordering Facility: [facility] Address: [address] [place], [place] [address]Result Comment: Carcinoembryonic antigen test is used as an aid in monitoring response to treatmentor recurrence in patients with established colorectal, breast, lung, prostatic, pancreatic, and ovarian carcinomas. Clinical correlation is required. The Carcinoembryonic antigen test was performed using the Tony Entelosel DXI paramagnetic particle chemiluminescent immunoassay method. Results obtained with different assay methods or kits cannot be used interchangeably.Performed By: #### 2039-6 #### [facility] CLIA [id number] [address] [place] [id number] [place], [place] [address]CNOVSPon 65-16-8990OCFDPQ Visit (SP) Office (HEMAVN) EVAN GILL ([id number]) 1955 F Date Time Provider Department 05/08/24 1:45 PM TAPAN CORONA During your visit today, we recorded the following information about you: Temperature Pulse Respiration Blood pressure 99 degrees 70/minute 18/minute 132/71 Weight Height 69.4 kg 1.626 m Tapan Corona MD 05/08/2024 2:21 PM Signed PATIENT NAME: Evan Gill CLINIC NO.: [id number] ATTENDING PHYSICIAN: Tapan Corona MD DATE OF [...] Range Status 02/06/2024 3 (more content not included)...[facility] 2000 panelon 46-94-1494Lbrbvop [Mass/Vol]4.4 g/dLNormal 3.9-4.9Avon HospitalComment on above:Order Comment: Specimen Type: BLOOD SPECIMEN Ordering Facility: [facility] Address: [address] [place], [place] [address]Performed By: #### 91414-9 #### [facility] CLIA [id number] [address] [place] [address] [place] AMERICAALP [Catalytic activity/Vol]65 U/LNormal 34-123Avon HospitalComment on above:Order Comment: Specimen Type: BLOOD SPECIMEN Ordering Facility: [facility] Address: [address] [place] [address] [place], [place] [address]Performed By: #### 72899-5 #### [facility] CLIA [id number] [address] [place] [address] [place] AMERICAALT [Catalytic activity/Vol]21 U/LNormal 7-38Av HospitalComment on above:Order Comment: Specimen Type: BLOOD SPECIMEN Ordering Facility: [facility] Address: [address] [place], [place] [address]Performed By: #### 93202-1 #### [facility] IA [id number] [address] [place] [address] [place] AMERICAAnion gap [Moles/Vol]9 mmol/LNormal8-15 [facility]ard HospitalComment on above:Order Comment: Specimen Type: BLOOD SPECIMEN Ordering Facility: [facility] Address: [address] [place], [place] [address]Performed By: #### 65553-5 #### [facility] IA [id number] [address] [place] [address] [place] AMERICAAST [Catalytic activity/Vol]24 U/LNormal 13-35Av HospitalComment on above:Order Comment: Specimen Type: BLOOD SPECIMEN Ordering Facility: [facility] Address: [address] [place], [place] [address]Performed By: #### 18719-8 #### [facility] IA [id number] [address] [place] [address] [place] AMERICABilirubin [Mass/Vol]0.3 mg/dLNormal 0.2-1.3Avo HospitalComment on above:Order Comment: Specimen Type: BLOOD SPECIMEN Ordering Facility: [facility] Address: [address] [place], [place] [address]Performed By: #### 42930-1 #### [facility] IA [id number] [address] [place] [address] [place] AMERICACalcium [Mass/Vol]9.6 mg/dLNormal8.5-10.2 Barnard HospitalComment on above:Order Comment: Specimen Type: BLOOD SPECIMEN Ordering Facility: [facility] Address: [address] [place], [place] [address]Performed By: #### 83973-1 #### [facility] IA [id number] [address] [place] [address] [place] AMERICAChloride [Moles/Vol]106 mmol/LNormal 98-107Av HospitalComment on above:Order Comment: Specimen Type: BLOOD SPECIMEN Ordering Facility: [facility] Address: [address] [place], [place] [address]Performed By: #### 29880-0 #### [facility] CLIA [id number] [address] [place] [address] [place] AMERICACO2 [Moles/Vol]28 mmol/DPugurj43-70Mmxl HospitalComment on above:Order Comment: Specimen Type: BLOOD SPECIMEN Ordering Facility: [facility] Address: [address] [place], [place] [address]Performed By: #### 72207-2 #### [facility] IA [id number] [address] [place] [address] [place] AMERICACreatinine [Mass/Vol]0.69 mg/dLNormal 0.58-0.96Av HospitalComment on above:Order Comment: Specimen Type: BLOOD SPECIMEN Ordering Facility: [facility] Address: [address] [place], [place] [address]Performed By: #### 88839-5 #### [facility] IA [id number] [address] [place] [address] [place] AMERICACreatinine and Glomerular filtration rate.predicted panel (S/P/Bld)93 mL/min/1.73m???Normal>=60Av HospitalComment on above:Order Comment: Specimen Type: BLOOD SPECIMEN Ordering Facility: [facility] Address: [address] [place], [place] [address]Result Comment: Estimated Glomerular Filtration Rate (eGFR) is [...] not accurately reflect actual GFR.Performed By: #### 35776-4 #### [facility] CLIA [id number] [place] [address] [place] AMERICAGlucose [Mass/Vol]107 mg/oUKeuw14-73Aptt HospitalComment on above:Order Comment: Specimen Type: BLOOD SPECIMEN Ordering Facility: [facility] Address: [address] [place], [place] [address]Result Comment: The [place] Diabetes Association (ADA) provides guidance for cutoff [...] Standards of Medical Care in Diabetes 2016, [place] [employer] Association. Diabetes Care. 2016.39(Suppl 1).Performed By: #### 77404-0 #### [facility] IA [id number] [address] [place] [address] [place] AMERICAPotassium [Moles/Vol]4.8 mmol/LNormal 3.7-5.1Ahealthsouth - specialty hospital of union HospitalComment on above:Order Comment: Specimen Type: BLOOD SPECIMEN Ordering Facility: [facility] Address: [address] [place], [place] [address]Performed By: #### 69359-6 #### [facility] CLIA [id number] [address] [place] [address] [place] AMERICAProtein [Mass/Vol]6.8 g/dLNormal6.3-8.0 Barnard HospitalComment on above:Order Comment: Specimen Type: BLOOD SPECIMEN [facility] Address: [address] [place], [place] [address]Performed By: #### 68774-9 #### [facility] CLIA [id number] [address] [place] [address] [place] OF AMERICASodium [Moles/Vol]143 mmol/XVicifm871-994 [facility] HospitalComment on above:Order Comment: Specimen Type: BLOOD SPECIMEN [facility] Address: [address] [place], [place] [address]Dtmqhjdyp By: #### 93531-9 #### [facility] CLIA [id number] [address] [place] [address] [place] OF AMERICAUrea nitrogen [Mass/Vol]17 mg/dLNormal 01-27Barnard HospitalComment on above:Order Comment: Specimen Type: BLOOD SPECIMEN [facility] Address: [address] [place], [place] [address]Performed By: #### 85100-4 #### [facility] CLIA [id number] [address] [place] [address] [place] AMERICAEosinophils/100 WBC Auto (Bld)on 00-96-1268Khcnlbqjsoe/100 WBC (Bld)Automated eosinophil %Parkwood HospitalErythrocyte distribution width Auto (RBC) [Ratio]on 05-08-2024 Erythrocyte distribution width (RBC) [Ratio]Erythrocyte distribution width [Ratio] by Automated count11.5-15.0Parkwood HospitalHematocrit Auto (Bld) [Volume fraction]on 51-08-9487Hioymqybfk (Bld) [Volume fraction] Hematocrit [Volume Fraction] of Blood by Automated count36.0-46.0Parkwood HospitalHemoglobin [Mass/volume] in Bloodon 24-42-1916Axjmttucyn (Bld) [Mass/Vol]Hemoglobin [Mass/volume] in Blood11.5-15.5FMcCullough-Hyde Memorial HospitalLaboratory - Chemistry and Chemistry - challengeon 05-08-2024 Albumin [Mass/Vol]4.4 g/dL3.9-4.9[facility] HospitalALP [Catalytic activity/Vol]65 U/C54-331BjafkmtsfParkwood HospitalALT [Catalytic activity/Vol]21 U/L7-38Park[facility] HospitalAST [Catalytic activity/Vol]24 U/L33-12NglbqdlsxParkwood HospitalBilirubin [Mass/Vol]0.3 mg/dL0.2-1.3FMcCullough-Hyde Memorial HospitalCalcium [Mass/Vol]9.6 mg/dL 8.5-10.2FMcCullough-Hyde Memorial HospitalChloride [Moles/Vol]106 mmol/L98-107 [facility] HospitalCO2 [Moles/Vol]28 mmol/S33-93TnklypgegParkwood HospitalCreatinine [Mass/Vol]0.69 mg/dL0.58-0.96[facility] HospitalGlucose [Mass/Vol]107 mg/hCSygg09-76TgrncceskParkwood HospitalComment on above:The Micron[place] Diabetes Association (ADA) provides guidance for cutoff [...] diabetes.Reference: Standardsof Medical Care in Diabetes 2016, [place] Diabetes Association. Diabetes Care. 2016.39(Suppl 1).Potassium [Moles/Vol]4.8 mmol/L 3.7-5.1FOhioHealth Riverside Methodist Hospitalodium [Moles/Vol]143 mmol/A740-125 [facility] HospitalUrea nitrogen [Mass/Vol]17 mg/dL7-21Park[facility] HospitalLaboratory - Hematology and Cell countson 05-08-2024 Eosinophils (Bld) [#/Vol]0.28 10*3/uL<0.46[facility] Immature granulocytes/100 WBC (Bld)0.2 %[facility] Leukocytes [#/volume] corrected for nucleated erythrocytes in Blood by Automated counon 20-99-2989CRV corrected for nucl RBC Auto (Bld) [#/Vol]Leukocytes [#/volume] corrected for nucleated erythrocytes in Blood by Automated coun 3.70-11.00Parkwood HospitalLymphocytes Auto (Bld) [#/Vol]on 40-16-4881Nqszhkjaziw (Bld) [#/Vol]Lymphocytes [#/volume] in Blood by Automated count1.00-4.00Parkwood HospitalLymphocytes/100 WBC Auto (Bld)on 98-54-5547Pvbnxmfrkij/100 WBC (Bld)Lymphocytes/100 leukocytes in Blood by Automated countFisher-Titus Medical CenterH Auto (RBC) [Entitic mass]on 01-37-4111QCG (RBC) [Entitic mass]MCH [Entitic mass] by Automated count26.0-34.0 Park[facility] HospitalMCHC Auto (RBC) [Mass/Vol]on 97-22-4675SEJA (RBC) [Mass/Vol]MCHC [Mass/volume] by Automated count30.5-36.0Fisher-Titus Medical CenterV Auto (RBC) [Entitic vol]on 44-78-0519JTF (RBC) [Entitic vol] MCV [Entitic volume] by Automated count80.0-100.0Park[facility] HospitalMonocytes Auto (Bld) [#/Vol]on 73-26-1649Btghqivfq (Bld) [#/Vol]Automated blood monocyte count<0.87Park[facility] HospitalMonocytes/100 WBC Auto (Bld)on 65-47-4018Ujjiaiuxi/100 WBC (Bld)Automated monocyte %[facility] HospitalNeutrophils Auto (Bld) [#/Vol]on 73-04-8979Dltvatzxrlo (Bld) [#/Vol]Neutrophils [#/volume] in Blood by Automated count1.45-7.50Parkwood HospitalNeutrophils/100 WBC Auto (Bld)on 05-08-2024 Neutrophils/100 WBC (Bld)Automated neutrophil %[facility] No Panel Informationon 98-27-5060Xuabeasjk GFR (CKD-EPI)93 mL/min/1.73m???>=60 Park[facility] HospitalComment on above:Estimated Glomerular Filtration Rate (eGFR) [...] reflect actual GFR.Immature Granulocyte # (Auto)<0.03 k/uL<0.10 [facility] HospitalNucleated RBC Auto (Bld) [#/Vol]on 05-08-2024 Nucleated RBC (Bld) [#/Vol]Nucleated erythrocytes [#/volume] in Blood by Automated count<0.01Parkwood HospitalNucleated erythrocytes [Presence] in Blood by Automated counton 43-92-0725Vloyiljeo RBC Auto Ql (Bld) Nucleated erythrocytes [Presence] in Blood by Automated countParkwood HospitalPlatelet mean volume Auto (Bld) [Entitic vol]on 68-97-0505Hfukyufe mean volume (Bld) [Entitic vol]Platelet mean volume [Entitic volume] in Blood by Automated countLow9.0-12.7FMcCullough-Hyde Memorial HospitalPlatelets Auto (Bld) [#/Vol]on 32-68-3504Cmqahieqc (Bld) [#/Vol]Platelets [#/volume] in Blood by Automated -269VtbxzfwozParkwood HospitalProtein [Mass/volume] in Serum or Plasmaon 85-72-2846Mnxvpvr [Mass/Vol]Protein [Mass/volume] in Serum or Plasma6.3-8.0Parkwood HospitalRBC Auto (Bld) [#/Vol]on 86-60-4297GXY (Bld) [#/Vol]Erythrocytes [#/volume] in Blood by Automated count 3.90-5.20Memorial Health Systemerum or plasma anion gap determinationon 02-81-9306Mzaaa gap [Moles/Vol]Serum or plasma anion gap determination8Parkwood HospitalMM TOMOSYNTHESIS SCREENING BI [place] 27[place]53[place] [address] Mammography Report Signed Patient: EVAN GILL MR#: [id number] : 1955 Acct:[id number] Age/Sex: 68 / F ADM Date: 04/23/24 Loc: MAMMO Attending Dr: Jairon Pisano D.O. Ordering Physician: Jairon Pisano D.O. Results: Date of Service: 04/23/24 Follow Up: Procedure(s): MM tomosynthesis screening BI Accession Number(s): [id number] cc: Jairon Pisano D.O.; CHARLES BAZZI Patient Name: EVAN GILL MR#: [id number] : 1955 Exam Date: 04/23/2024 Ordering Doctor: [...] Treatments None Family Cancers None LOCATION: [facility] BREAST COMPOSITION: There are scattered [...] Signed By: 04/23/24 1354 DD/ 1353 TD/TT: Extension Service Supervisor:TBHRadiology, RadiologistMD - 04/23/2024 [place] [address] Mammography Report Signed Patient: EVAN GILL MR#: [id number] : 1955 Acct:[id number] Age/Sex: 68 / F ADM Date: 04/23/24 Loc: MAMMO Attending Dr: Jairon Pisano D.O. Ordering Physician: Jairon Pisano D.O. Results: Date of Service: 04/23/24 Follow Up: Procedure(s): MM tomosynthesis screening BI Accession Number(s): [id number] cc: Jairon Pisano D.O.; CHARLES BAZZI Patient Name: EVAN GILL MR#: [id number] : 1955 Exam Date: 04/23/2024 Ordering Doctor: [...] Treatments None Family Cancers None LOCATION: [facility] BREAST COMPOSITION: There are scattered [...] Signed By: 04/23/24 1354 DD/ 1353 TD/TT: Extension Service Supervisor: [facility] HealthcareRadiology Study observation (narrative)[facility] HealthcareMM TOMOSYNTHESIS SCREENING BIOrdered By: Radiologist Radiology on 12-98-4642[facility] Work Phone: IGP,APTIMA HPV,AGE GDLNon 71-59-2851SZT GDLN ACOG TESTINGNote.[facility] HealthcareComment on above:TESTS RESULT FLAG UNITS REF RANGE LAB Clinician Provided Cytology Information Source.............Cervix;Endocervix No. of containers..01 ThinPrep Vial Age Algo ACOG Katie... Note 01 <21 or >65 or no age provided FLAG LEGEND: L-Low Normal,H-High Normal,LL-Alert Low,HH-Alert High <-Panic Low,>-Panic High,A-Abnormal,AA-Critical Abnormal Performed at: 01 =[facility] [address] [place] [address] Macey Newell MD, PAP IG (IMAGE GUIDED)Note.[facility]OMS HealthcareComment on above:TESTS RESULT FLAG UNITS REF RANGE LAB DIAGNOSIS: 02 NEGATIVE FOR INTRAEPITHELIAL LESION OR MALIGNANCY. CELLULAR CHANGES ASSOCIATED WITH INFLAMMATION ARE PRESENT. THIS SPECIMEN WAS RESCREENED PART OF OUR CAP LINING MACHINE OPERATOR PROGRAM. Specimen adequacy: 02 Satisfactory for evaluation. Endocervical and/or squamous metaplastic cells (endocervical component) are present. Performed by: 03 Hailee Jeffery, Shuttle Bus Driver ([facility]) QC reviewed by: 02 Kari French, Shuttle Bus Driver . 02 Note: Note 02 The Pap [...] <-Panic Low,>-Panic High,A-Abnormal,AA-Critical Abnormal Performed at: [address] [address] Macey Newell MD, 03 [facility] [address] [address] Dennise PhD, Performed at: =G - [facility] [address] [id number] Flaker Operator: Macey Newell MD, Phone: [phone] Performed at: - [facility] [id number] Flaker Operator: Macey Newell MD, Phone: [phone] [facility] CERVIX ENDOCERVIX CLINISYNCNOMS HealthcareBasic metabolic 1999 panelon 62-08-0671Rinqz gap [Moles/Vol]11 mmol/LNormal9-18[facility] HospitalComment on above:Order Comment: Specimen Type: BLOOD SPECIMENOrdering Facility: [facility] Address:[address] [place], [place] [address]Performed By: #### 93880-1, 2777-1, 14546-4 ####[facility]ORATORYCLIA [id number] [place] [address] [place] AMERICACalcium [Mass/Vol]9.0 mg/dLNormal8.5-10.2Ffederal medical center, devens HospitalComment on above:Order Comment: Specimen Type: BLOOD SPECIMENOrdering Facility: [facility] Address:[address] [place], [place] [address]Performed By: #### 95226-7, 2776-07, ####[facility] LABORATORYCLIA [id number] [place] [address] [place] Chloride [Moles/Vol]102 mmol/RWqqrco71-982Ziyzeuqd HospitalComment on above: Order Comment: Specimen Type: BLOOD SPECIMENOrdering Facility: [facility] Address:[address] [place], [place] [address]Performed By: #### 61602- 2, 2776-07, ####[facility] LABORATORYCLIA [id number] [place] [address] [place] AMERICACO2 [Moles/Vol]28 mmol/WVdzxim58-25 [facility] HospitalComment on above:Order Comment: Specimen Type: BLOOD SPECIMENOrdering Facility: [facility] Address:[address] [place], [place] [address]Performed By: #### 44645-7, 2776-07, ####[facility] LABORATORYCLIA [id number] [place] [address] [place] AMERICACreatinine [Mass/Vol]0.60 mg/dLNormal0.58-0.96[facility] HospitalComment on above:Order Comment: Specimen Type: BLOOD SPECIMENOrdering Facility: [facility] Address:[address] [place], [place] [address] Performed By: #### 18977-1, 2776-07, ####[facility] LABORATORYCLIA [id number] [place] [address] [place] Creatinine and Glomerular filtration rate.predicted panel (S/P/Bld)97 mL/min/1.73m???Normal>=60Fanorthampton state hospital HospitalComment on above:Order Comment: Specimen Type: BLOOD SPECIMENOrdering Facility: [facility] Address:[address] [place], [place] [address]Xzteuw Comment: Estimated Glomerular Filtration Rate (eGFR) is calculated using the 2020 CKD-EPI creatinine equation. This equation utilizes serum creatinine, sex, and age as parameters. The creatinine assay has traceable calibration to isotope dilution-mass spectrometry. Refer to KDIGO guidelines for clinical interpretation. In patients with unstable renal function, e.g. those with acute kidney injury, the eGFR may not accurately reflect actual GFR.Performed By: #### 89505-2, 2776-07, ####[facility] LABORATORYCLIA [id number] [place] [address] [place] AMERICAGlucose [Mass/Vol]101 mg/bARkgz37-27Iidscfum[address] Comment on above:Order Comment: Specimen Type: BLOOD SPECIMENOrdering Facility: [facility] Address:[address] [place], [place] [address]Result Comment: The Micronesian Diabetes Association (ADA) provides guidance for cutoff [...] Standards of Medical Care in Diabetes 2016, [place] Diabetes Association. Diabetes Care. 2016.39(Suppl 1).Performed By: #### 24259-6, 2776-07, ####[facility] LABORATORYCLIA [id number] [place] [address] [place] AMERICAPotassium [Moles/Vol]3.5 mmol/LLow3.7-5.1FBerkshire Medical CenterComment on above:Order Comment: Specimen Type: BLOOD SPECIMENOrdering Facility: [facility] Address:[address] [place], [place] [address]Hwelgaekb By: #### 09500-2, 2776-07, ####[facility] LABORATORYCLIA [id number] [place] [address] [place] WAYNE HOSPITALSodium [Moles/Vol]141 mmol/L Scylja374-769Fuolmlkj HospitalComment on above:Order Comment: Specimen Type: BLOOD SPECIMENOrdering Facility: [facility] Address:[address] [place], [place] [address]Performed By: #### 56468-5, 2776-07, ####[facility] LABORATORYCLIA [id number] [place] [address] [place] AMERICAUrea nitrogen [Mass/Vol]8 mg/dLNormal7-21[facility] HospitalComment on above:Order Comment: Specimen Type: BLOOD SPECIMENOrdering Facility: [facility] Address:[address] [place], [place] [address]Performed By: #### 49102-0, 2776-07, ####[facility] LABORATORYCLIA [id number] [place] [address] [facility] WAYNE HOSPITALCBC panel Auto (Bld)on 74-92-7583Jsthgfcddhm distribution width (RBC) [Ratio]13.8 % Lpylpf90.5-15.0[facility]-Hri HospitalComment on above:Order Comment: Specimen Type: BLOOD SPECIMENOrdering Facility: [facility] Address:[address] [place], [place] [address]Performed By: #### 68988-0 ####[facility] LABORATORYCLIA [id number] [place] [address] [place] Hematocrit (Bld) [Volume fraction]32.4 %Low36.0-46.0Fanorthampton state hospital HospitalComment on above:Order Comment: Specimen Type: BLOOD SPECIMENOrdering Facility: [facility] Address:[address] [place], [place] [address]Performed By: #### 00831-6 ####[facility] LABORATORYCLIA [id number] [place] [address] [place] AMERICAHemoglobin (Bld) [Mass/Vol]10.7 g/dLLow11.5-15.5 [facility] HospitalComment on above:Order Comment: Specimen Type: BLOOD SPECIMENOrdering Facility: [facility] Address:[address] [place], [place] [address]Performed By: #### 25819-4 ####[facility] LABORATORYCLIA [id number] [address] (RBC) [Entitic mass]29.6 frBpxhqu11.0-34.0Fanorthampton state hospital HospitalComment on above: Order Comment: Specimen Type: BLOOD SPECIMENOrdering Facility: [facility] Address:[address] [place], [place] [address]Performed By: #### 01111- 2 ####[facility] LABORATORYCLIA [id number] [address] (RBC) [Mass/Vol]33.0 g/xIRpgmci50.5-36.0Fanorthampton state hospital HospitalComment on above:Order Comment: Specimen Type: BLOOD SPECIMENOrdering Facility: [facility] Address:[address] [place], [place] [address]Performed By: #### 29734-5 ####[facility] LABORATORYCLIA [id number] [address] (RBC) [Entitic vol] 89.5 iWHkppoe23.0-100.0Fanorthampton state hospital HospitalComment on above:Order Comment: Specimen Type: BLOOD SPECIMENOrdering Facility: [facility] Address:[address] [place], [place] [address]Performed By: #### 34838-2 ####[facility] LABORATORYCLIA [id number] [address] RBC (Bld) [#/Vol]10*3/uLNormal<0.01Fanorthampton state hospital HospitalComment on above:Order Comment: Specimen Type: BLOOD SPECIMENOrdering Facility: [facility] Address:[address] [place], [place] [address]Performed By: #### 83897-7 ####[facility] LABORATORYCLIA [id number] [place] [address] [place] AMERICAPlatelet mean volume (Bld) [Entitic vol]8.8 fLLow 9.0-12.7Ffederal medical center, devens HospitalComment on above:Order Comment: Specimen Type: BLOOD SPECIMENOrdering Facility: [facility] Address:[address] [place], [place] [address]Performed By: #### 05702-0 ####[facility] LABORATORYCLIA [id number] [place] [address] [place] Platelets (Bld) [#/Vol]285 10*3/rBZdhpvf113-131Kmqcgkcq HospitalComment on above:Order Comment: Specimen Type: BLOOD SPECIMENOrdering Facility: [facility] Address:[address] [place], [place] [address]Performed By: #### 06840-2 ####[facility] LABORATORYCLIA [id number] [place] [address] [place] AMERICARBC (Bld) [#/Vol]3.62 10*6/uLLow3.90-5.20Fanorthampton state hospital HospitalComment on above:Order Comment: Specimen Type: BLOOD SPECIMENOrdering Facility: [facility] Address:[address] [place], [place] [address]Performed By: #### 94125-1 ####[facility] LABORATORYCLIA [id number] [place] [address] [place] AMERICAWBC (Bld) [#/Vol]7.91 10*3/uLNormal3.70-11.00Fanorthampton state hospital HospitalComment on above:Order Comment: Specimen Type: BLOOD SPECIMENOrdering Facility: [facility] Address:[address] [place], [place] [address]Performed By: #### 06289-6 ####[facility] LABORATORYCLIA [id number] [place] [address] [place] AMERICAMagnesium SerPl-mCncon 34-05-9539Sjuhocpef [Mass/Vol]1.9 mg/dLNormal 1.7-2.3Ffederal medical center, devens HospitalComment on above:Order Comment: Specimen Type: BLOOD SPECIMENOrdering Facility: [facility] Address:[address] [place], [place] [address]Performed By: #### 49724-7, 2776-, ####[facility] LABORATORYCLIA [id number] [place] [address] [place] AMERICAPhosphate SerPl-mCncon 06-56-7056Zuhzvuscu [Mass/Vol]3.0 mg/dLNormal 2.7-4.8Fanorthampton state hospital HospitalComment on above:Order Comment: Specimen Type: BLOOD SPECIMENOrdering Facility: [facility] Address:[address] [place], [place] [address]Performed By: #### 94278-4, 2776-07, ####[facility] LABORATORYCLIA [id number] [place] [address] [place] AMERICABasic metabolic 2000 panelon 66-40-4658Tsadh gap [Moles/Vol]12 mmol/L Normal9-18Ffederal medical center, devens HospitalComment on above:Order Comment: Specimen Type: BLOOD SPECIMENOrdering Facility: [facility] Address:[address] [place], [place] [address]Performed By: #### 2777-1, , ####[facility] LABORATORYCLIA [id number] [place] [address] [place] AMERICACalcium [Mass/Vol]9.3 mg/dLNormal8.5-10.2Ffederal medical center, devens HospitalComment on above:Order Comment: Specimen Type: BLOOD SPECIMENOrdering Facility: [facility] Address:[address] [place], [place] [address]Performed By: #### 2777-1, , ####[facility] LABORATORYCLIA [id number] [place] [address] [place] AMERICAChloride [Moles/Vol]100 mmol/L Iekqhz97-387Tzitoxor HospitalComment on above:Order Comment: Specimen Type: BLOOD SPECIMENOrdering Facility: [facility] Address:[facility] [place], [place] [address]Performed By: #### 2777-1, , 15855-5 ####[facility] LABORATORYCLIA [id number] [place] [address] [place] AMERICACO2 [Moles/Vol]27 mmol/WTwkgxa10-05Dnwhuxxn Hospital Comment on above:Order Comment: Specimen Type: BLOOD SPECIMENOrdering Facility: [facility] Address:[address] [place] [address] Performed By: #### 2777-1, , ####[facility] LABORATORYCLIA [id number] [place] [address] [place] [facility] Creatinine [Mass/Vol]0.64 mg/dLNormal0.58-0.96FaChelsea Memorial HospitalComment on above: Order Comment: Specimen Type: BLOOD SPECIMENOrdering Facility: [facility] Address:[address] [place], [place] [address]Performed By: #### 2777- 1, , ####[facility] LABORATORYCLIA [id number] [address]Creatinine and Glomerular filtration rate.predicted panel (S/P/Bld)95 mL/min/1.73m???Normal>=60FaChelsea Memorial HospitalComment on above:Order Comment: Specimen Type: BLOOD SPECIMENOrdering Facility: [facility] Address:[address] [place], [place] [address]Result Comment: Estimated Glomerular Filtration Rate (eGFR) is [...] reflect actual GFR. Performed By: #### 2777-1, , 53287-5 ####[facility] LABORATORYCLIA [id number] [place] [address] [place] AMERICAGlucose [Mass/Vol]122 mg/aNWjsj10-29Ghpjsjat HospitalComment on above:Order Comment: Specimen Type: BLOOD SPECIMENOrdering Facility: [facility] Address:[address] [place], [place] [address]Result Comment: The Micron[place] Diabetes Association (ADA) provides guidance for cutoff [...] Standards of Medical Care in Diabetes 2016, [place] Diabetes Association. Diabetes Care. 2016.39(Suppl 1). Performed By: #### 2777-1, , ####[facility] LABORATORYCLIA [id number] [place] [address] [place] Potassium [Moles/Vol]3.9 mmol/LNormal3.7-5.1FBerkshire Medical CenterComment on above: Order Comment: Specimen Type: BLOOD SPECIMENOrdering Facility: [facility] Address:[address] [place], [place] [address]Performed By: #### 2777- 1, , ####[facility] LABORATORYCLIA [id number] [place] [address] [place] AMERICASodium [Moles/Vol]139 mmol/LNormal 136-144FaChelsea Memorial HospitalComment on above:Order Comment: Specimen Type: BLOOD SPECIMENOrdering Facility: [facility] Address:[address] [place], [place] [address]Performed By: #### 2777-1, , ####[facility] LABORATORYCLIA [id number] [place] [address] [place] AMERICAUrea nitrogen [Mass/Vol]8 mg/dLNormal7-21[facility] HospitalComment on above:Order Comment: Specimen Type: BLOOD SPECIMENOrdering Facility: [facility] Address:[address] [place], [place] [address]Performed By: #### 2777-1, 23704-1, 15198-6 ####[facility] LABORATORYCLIA [id number] [place] [address] [place] AMERICACASE MGT INIT ASSESon 02-85-1891NSEZ MGT INIT [facility] HospitalCBC panel Auto (Bld)on 29-28-8935Lelqrkigrmb distribution width (RBC) [Ratio]13.5 %Boamfn60.5-15.0 [facility]ri HospitalComment on above:Order Comment: Specimen Type: BLOOD SPECIMENOrdering Facility: [facility] Address:[address] [place], [place] [address]Performed By: #### 05071-2 ####[facility] LABORATORYCLIA [id number] [address] [facility] Hematocrit (Bld) [Volume fraction]32.2 %Low36.0-46.0[facility]ri HospitalComment on above:Order Comment: Specimen Type: BLOOD SPECIMENOrdering Facility: [facility] Address:[address] [place], [place] [address]Performed By: #### 90484-4 ####[facility] LABORATORYCLIA [id number] [place] [address] [place] WAYNE HOSPITALHemoglobin (Bld) [Mass/Vol]11.2 g/dLLow11.5-15.5 [facility] HospitalComment on above:Order Comment: Specimen Type: BLOOD SPECIMENOrdering Facility: [facility] Address:[address] [place], [place] [address]Performed By: #### 73695-8 ####[facility] LABORATORYCLIA [id number] [place] [address] [place] AMERICAMCH (RBC) [Entitic mass]30.4 fxZopghx56.0-34.0Fanorthampton state hospital HospitalComment on above: Order Comment: Specimen Type: BLOOD SPECIMENOrdering Facility: [facility] Address:[address] [place], [place] [address]Performed By: #### 86693- 2 ####[facility] LABORATORYCLIA [id number] [place] [address] [facility]ITALMCHC (RBC) [Mass/Vol]34.8 g/gNScftdw21.5-36.0Fanorthampton state hospital HospitalComment on above:Order Comment: Specimen Type: BLOOD SPECIMENOrdering Facility: [facility] Address:[address] [place], [place] [address]Performed By: #### 26128-4 ####[facility] LABORATORYCLIA [id number] [place] [id number] [facility]PITALMCV (RBC) [Entitic vol] 87.5 vIZggbso00.0-100.0Fanorthampton state hospital HospitalComment on above:Order Comment: Specimen Type: BLOOD SPECIMENOrdering Facility: [facility] Address:[address] [place], [place] [address]Performed By: #### 29880-6 ####CORNELIUS LABORATORYCLIA [id number] [place] [id number] [facility] MEDICAL CENTERucleated RBC (Bld) [#/Vol]10*3/uLNormal<0.01Fanorthampton state hospital HospitalComment on above:Order Comment: Specimen Type: BLOOD SPECIMENOrdering Facility: [facility] Address:[address] [place], [place] [address]Performed By: #### 96791-8 ####CORNELIUS LABORATORYCLIA [id number] [place] [id number] [facility] HOSPITALPlatelet mean volume (Bld) [Entitic vol]8.3 fLLow 9.0-12.7Ffederal medical center, devens HospitalComment on above:Order Comment: Specimen Type: BLOOD SPECIMENOrdering Facility: [facility] Address:[address] [place], [place] [address]Performed By: #### 99515-5 ####CORNELIUS LABORATORYCLIA [id number] [place] [id number] [facility] Platelets (Bld) [#/Vol]270 10*3/oLDmqkkb847-622Jkaxjsrw HospitalComment on above:Order Comment: Specimen Type: BLOOD SPECIMENOrdering Facility: [facility] Address:[address] [place], [place] [address]Performed By: #### 08381-8 ####[facility] LABORATORYCLIA [id number] [address]ETRBC (Bld) [#/Vol]3.68 10*6/uLLow3.90-5.20Fanorthampton state hospital HospitalComment on above:Order Comment: Specimen Type: BLOOD SPECIMENOrdering Facility: [facility] Address:[address] [place], [place] [address]Performed By: #### 98973-6 ####[facility] LABORATORYCLIA [id number] [address]ETWBC (Bld) [#/Vol]8.53 10*3/uLNormal3.70-11.00Irvine HospitalComment on above:Order Comment: Specimen Type: BLOOD SPECIMENOrdering Facility: [facility] Address:[address] [place], [place] [address]Performed By: #### 61416-8 ####[facility] LABORATORYCLIA [id number] [address] AMERICACNDSon 06-58-6775HDHNHsvzobXhswhppv HospitalMagnesium SerPl-mCncon 93-49-0787Rkrblxqvs [Mass/Vol]1.6 mg/dLLow1.7-2.3Ffederal medical center, devens HospitalComment on above:Order Comment: Specimen Type: BLOOD SPECIMENOrdering Facility: [facility] Address:[address] [place], [place] [address]Performed By: #### 2777-1, 93989-0, 28687-1 ####[facility] LABORATORYCLIA [id number] [address] OF AMERICAPT EDon 53-92-2831EJ EDNoCollis P. Huntington Hospital HospitalPhosphate SerPl-mCncon 89-33-1424Onpvmsswj [Mass/Vol]2.5 mg/dL Low2.7-4.8Irvine HospitalComment on above:Order Comment: Specimen Type: BLOOD SPECIMENOrdering Facility: [facility] Address:[address] [place], [place] [address]Performed By: #### 2777-1, 17227-8, 98601-8 ####[facility] LABORATORYCLIA [id number] [place] [id number] [place] OF AMERICAANES POSTPROC EVALon 75-60-4651TGCC POSTPROC EVALNormTewksbury State Hospital Hospital ANES PRE-OPon 58-08-0425ZNMR PRE-OPNormalIrvine HospitalBRIEF OP NOTon 37-70-9712VGVVW OP NOTNormWorcester County HospitalBasic metabolic 2000 panelon 55-30-3542Zabhx gap [Moles/Vol]21 mmol/LHigh9-18Ffederal medical center, devens HospitalComment on above:Order Comment: Specimen Type: BLOOD SPECIMENOrdering Facility: [facility] Address:[address] [place], [place] [address]Performed By: #### HSTNT, 22655-7 ####[facility] LABORATORYCLIA [id number] [place] [address] [place] OF AMERICACalcium [Mass/Vol]8.7 mg/dL Normal8.5-10.2FBerkshire Medical CenterComment on above:Order Comment: Specimen Type: BLOOD SPECIMENOrdering Facility: [facility] Address:[address] [place], [place] [address]Performed By: #### HSTNT, 90274-9 ####[facility] LABORATORYCLIA [id number] [place] [id number] [place] OF AMERICAChloride [Moles/Vol]100 mmol/VSuonyu87-439Hfbrscqo HospitalComment on above:Order Comment: Specimen Type: BLOOD SPECIMENOrdering Facility: [facility] Address:[address] [place], [place] [address]Performed By: #### HSTNT, 00976-1 ####[facility] LABORATORYCLIA [id number] [place] [address] [place] AMERICACO2 [Moles/Vol]15 mmol/LLow 22-30[facility]ri HospitalComment on above:Order Comment: Specimen Type: BLOOD SPECIMENOrdering Facility: [facility] Address:[address] [place], [place] [address]Performed By: #### HSTNT, 14503-8 ####[facility] LABORATORYCLIA [id number] [place] [id number] [place] Creatinine [Mass/Vol]0.63 mg/dLNormal0.58-0.96[facility]-Hri HospitalComment on above: Order Comment: Specimen Type: BLOOD SPECIMENOrdering Facility: [facility] Address:[address] [place], [place] [address]Performed By: #### HSTNT, 92903-4 ####[facility] LABORATORYCLIA [id number] [address]Creatinine and Glomerular filtration rate.predicted panel (S/P/Bld)96 mL/min/1.73m???Normal>=60[facility] Comment on above:Order Comment: Specimen Type: BLOOD SPECIMENOrdering Facility: [facility] Address:[address] [place], [place] [address]Result Comment: Estimated Glomerular Filtration Rate (eGFR) is [...] accurately reflect actual GFR.Performed By: #### HSTNT, 17286-6 ####[facility] LABORATORYCLIA [id number] [place] [id number] [place] OF AMERICAGlucose [Mass/Vol]96 mg/dL Vpzdur01-10Bvchghyj HospitalComment on above:Order Comment: Specimen Type: BLOOD SPECIMENOrdering Facility: [facility] Address:[address] [place], [place] [address]Result Comment: The Micronesian Diabetes Association (ADA) provides guidance for cutoff [...] Standards of Medical Care in Diabetes 2016, Micronesian Diabetes Association. Diabetes Care. 2016.39(Suppl 1).Performed By: #### HSTNT, 77983-9 ####[facility] LABORATORYCLIA [id number] [place] [address] [place] AMERICAPotassium [Moles/Vol]3.7 mmol/LNormal3.7-5.1 [facility] HospitalComment on above:Order Comment: Specimen Type: BLOOD SPECIMENOrdering Facility: [facility] Address:[address] [place], [place] [address]Performed By: #### HSTNT, 28111-8 ####[facility] LABORATORYCLIA [id number] [place] [address] [place] AMERICASodium [Moles/Vol]136 mmol/TOrkdnj517-769Hhqnibts HospitalComment on above:Order Comment: Specimen Type: BLOOD SPECIMENOrdering Facility: [facility] Address:[address] [place], [place] [address]Performed By: #### HSTNT, 79297-2 ####[facility] LABORATORYCLIA [id number] [place] [address] [place] AMERICAUrea nitrogen [Mass/Vol]18 mg/dLNormal7-21Fanorthampton state hospital HospitalComment on above:Order Comment: Specimen Type: BLOOD SPECIMENOrdering Facility: [facility] Address:[address] [place], [place] [address]Performed By: #### HSTNT, 85052-8 ####[facility] LABORATORYCLIA [id number] [place] [address] [place] OF AMERICAAnion gap [Moles/Vol]19 mmol/LHigh9-18Ffederal medical center, devens HospitalComment on above:Order Comment: Specimen Type: BLOOD SPECIMENOrdering Facility: [facility] Address:[address] [place], [place] [address]Performed By: #### 20626-7, 2776-07, ####[facility] LABORATORYCLIA [id number] [place] [address] [place] AMERICACalcium [Mass/Vol]8.7 mg/dLNormal8.5-10.2Ffederal medical center, devens HospitalComment on above:Order Comment: Specimen Type: BLOOD SPECIMENOrdering Facility: [facility] Address:[address] [place], [place] [address]Performed By: #### 72290-5, 2776-07, ####[facility] LABORATORYCLIA [id number] [place] [address] [place] Chloride [Moles/Vol]105 mmol/TXjfhdg59-237Xxdsvugz HospitalComment on above: Order Comment: Specimen Type: BLOOD SPECIMENOrdering Facility: [facility] Address:[address] [place], [place] [address]Performed By: #### 84890- 2, 2776-07, ####[facility] LABORATORYCLIA [id number] [place] [address] [place] AMERICACO2 [Moles/Vol]18 mmol/OQwz06-55 Irvine HospitalComment on above:Order Comment: Specimen Type: BLOOD SPECIMENOrdering Facility: [facility] Address:[address] [place], [place] [address]Performed By: #### 54138-0, 2776-07, ####[facility] LABORATORYCLIA [id number] [place] [address] [place] AMERICACreatinine [Mass/Vol]0.76 mg/dLNormal0.58-0.96Fanorthampton state hospital HospitalComment on above:Order Comment: Specimen Type: BLOOD SPECIMENOrdering Facility: [facility] Address:[address] [place] [address] Performed By: #### 89552-2, 2777-, ####[facility] LABORATORYCLIA [id number] [place] [id number] [place] Creatinine and Glomerular filtration rate.predicted panel (S/P/Bld)84 mL/min/1.73m???Normal>=60[facility] HospitalComment on above:Order Comment: Specimen Type: BLOOD SPECIMENOrdering Facility: [facility] Address:[address] [place], [place] [address]Result Comment: Estimated Glomerular Filtration Rate (eGFR) is calculated using the 2020 CKD-EPI creatinine equation. This equation utilizes serum creatinine, sex, and age as parameters. The creatinine assay has traceable calibration to isotope dilution-mass spectrometry. Refer to KDIGO guidelines for clinical interpretation. In patients with unstable renal function, e.g. those with acute kidney injury, the eGFR may not accurately reflect actual GFR.Performed By: #### 58427-4, 2777-, ####[facility] LABORATORYCLIA [id number] [place] [address] [place] OF AMERICAGlucose [Mass/Vol]57 mg/pIJlq25-37Uttsl[address] Comment on above:Order Comment: Specimen Type: BLOOD SPECIMENOrdering Facility: [facility] Address:[address] [place], [place] [address]Result Comment: The Micronesian Diabetes Association (ADA) provides guidance for cutoff [...] Standards of Medical Care in Diabetes 2016, Micronesian Diabetes Association. Diabetes Care. 2016.39(Suppl 1).Performed By: #### 47359-9, 2776-07, ####[facility] LABORATORYCLIA [id number] [place] [address] [place] AMERICAPotassium [Moles/Vol]4.3 mmol/LNormal3.7-5.1Ffederal medical center, devens HospitalComment on above:Order Comment: Specimen Type: BLOOD SPECIMENOrdering Facility: [facility] Address:[address] [place], [place] [address]Performed By: #### 01208-3, 2776-07, ####[facility] LABORATORYCLIA [id number] [place] [address] [place] OF WAYNE HOSPITALSodium [Moles/Vol]142 mmol/L Jenlhg541-170Axjnreqo HospitalComment on above:Order Comment: Specimen Type: BLOOD SPECIMENOrdering Facility: [facility] Address:[address] [place], [place] [address]Performed By: #### 76426-2, 2776-07, ####[facility] LABORATORYCLIA [id number] [place] [id number] [place] AMERICAUrea nitrogen [Mass/Vol]20 mg/dLNormal7-21FaChelsea Memorial HospitalComment on above:Order Comment: Specimen Type: BLOOD SPECIMENOrdering Facility: [facility] Address:[address] [place], [place] [address]Performed By: #### 81613-2, 2776-07, ####[facility] LABORATORYCLIA [id number] [place] [id number] [place] OF AMERICACB W Auto Differential panel (Bld)on 65-47-7724Nyskmytxv (Bld) [#/Vol]10*3/uLNormal <0.11[facility]ri HospitalComment on above:Order Comment: Specimen Type: BLOOD SPECIMENOrdering Facility: [facility] Address:[address] [place], [place] [address]Performed By: #### 48637-6 ####[facility] LABORATORYCLIA [id number] [place] [id number] [place] Basophils/100 WBC (Bld)0.2 %NormalIrvine HospitalComment on above:Order Comment: Specimen Type: BLOOD SPECIMENOrdering Facility: [facility] Address:[address] [place], [place] [address]Performed By: #### 97003- 8 ####[facility] LABORATORYCLIA [id number] [place] [address] [place] AMERICADifferential cell count method Nom (Bld)AutoNormal Irvine HospitalComment on above:Order Comment: Specimen Type: BLOOD SPECIMENOrdering Facility: [facility] Address:[address] [place], [place] [address]Performed By: #### 37517-2 ####[facility] LABORATORYCLIA [id number] [place] [address] [place] Eosinophils (Bld) [#/Vol]10*3/uLNormal<0.46Fanorthampton state hospital HospitalComment on above: Order Comment: Specimen Type: BLOOD SPECIMENOrdering Facility: [facility] Address:[address] [place], [place] [address]Performed By: #### 01792- 8 ####[facility] LABORATORYCLIA [id number] [place] [address] [place] AMERICAEosinophils/100 WBC (Bld)0.0 %NormalIrvine Hospital Comment on above:Order Comment: Specimen Type: BLOOD SPECIMENOrdering Facility: [facility] Address:[address] [place] [address] Performed By: #### 61141-7 ####[facility] LABORATORYCLIA [id number] [place] [address] [place] AMERICAErythrocyte distribution width (RBC) [Ratio]13.3 %Wkanie63.5-15.0Irvine HospitalComment on above:Order Comment: Specimen Type: BLOOD SPECIMENOrdering Facility: [facility] Address:[address] [place], [place] [address]Performed By: #### 54554- 8 ####[facility] LABORATORYCLIA [id number] [place] [address] [place] AMERICAHematocrit (Bld) [Volume fraction]31.6 %Low36.0-46.0 [facility] HospitalComment on above:Order Comment: Specimen Type: BLOOD SPECIMENOrdering Facility: [facility] Address:[address] [place], [place] [address]Performed By: #### 05876-3 ####[facility] LABORATORYCLIA [id number] [place] [address] [place] Hemoglobin (Bld) [Mass/Vol]10.9 g/dLLow11.5-15.5Ffederal medical center, devens HospitalComment on above:Order Comment: Specimen Type: BLOOD SPECIMENOrdering Facility: [facility] Address:[address] [place], [place] [address]Performed By: #### 69253-7 ####[facility] LABORATORYCLIA [id number] [place] [address] [place] AMERICAImmature granulocytes (Bld) [#/Vol]0.06 10*3/uL Normal<0.10[facility] HospitalComment on above:Order Comment: Specimen Type: BLOOD SPECIMENOrdering Facility: [facility] Address:[address] [place], [place] [address]Performed By: #### 64536-4 ####[facility] LABORATORYCLIA [id number] [place] [address] [place] Immature granulocytes/100 WBC (Bld)0.6 %NormalEncompass Rehabilitation Hospital of [facility] [place] on above: Order Comment: Specimen Type: BLOOD SPECIMENOrdering Facility: [facility] Address:[address] [place], [place] [address]Performed By: #### 77009- 8 ####[facility] LABORATORYCLIA [id number] [place] [address] [place] OF AMERICALymphocytes (Bld) [#/Vol]0.48 10*3/uLLow1.00-4.00 [facility] on above:Order Comment: Specimen Type: BLOOD SPECIMENOrdering Facility: [facility] Address:[address] [place], [place] [address]Performed By: #### 10744-9 ####[facility] LABORATORYCLIA [id number] [address] STATES OF [facility] Lymphocytes/100 WBC (Bld)4.5 %NormalFanorthampton state hospital HospitalComment on above:Order Comment: Specimen Type: BLOOD SPECIMENOrdering Facility: [facility] Address:[address] [place], [place] [address]Performed By: #### 02975- 8 ####[facility] LABORATORYCLIA [id number] [address] (RBC) [Entitic mass]30.3 bmDjjbon25.0-34.0Fanorthampton state hospital HospitalComment on above:Order Comment: Specimen Type: BLOOD SPECIMENOrdering Facility: [facility] Address:[address] [place], [place] [address]Performed By: #### 99342-8 ####[facility] LABORATORYCLIA [id number] [address] (RBC) [Mass/Vol] 34.5 g/gWCxeczj28.5-36.0Fanorthampton state hospital HospitalComment on above:Order Comment: Specimen Type: BLOOD SPECIMENOrdering Facility: [facility] Address:[address] [place], [place] [address]Performed By: #### 89917-3 ####[facility] LABORATORYCLIA [id number] [address] (RBC) [Entitic vol]87.8 kIIcnmkg05.0-100.0Fanorthampton state hospital HospitalComment on above:Order Comment: Specimen Type: BLOOD SPECIMENOrdering Facility: [facility] Address:[address] [place], [place] [address]Performed By: #### 80508-2 ####[facility] LABORATORYCLIA [id number] [address]Monocytes (Bld) [#/Vol] 0.33 10*3/uLNormal<0.87Fanorthampton state hospital HospitalComment on above:Order Comment: Specimen Type: BLOOD SPECIMENOrdering Facility: [facility] Address:[address] [place], [place] [address]Performed By: #### 46350-5 ####[facility] LABORATORYCLIA [id number] [place] [address] [place] AMERICAMonocytes/100 WBC (Bld)3.1 %NormalIrvine HospitalComment on above: Order Comment: Specimen Type: BLOOD SPECIMENOrdering Facility: [facility] Address:[address] [place], [place] [address]Performed By: #### 77481- 8 ####[facility] LABORATORYCLIA [id number] [place] [address] [place] AMERICANeutrophils (Bld) [#/Vol]9.79 10*3/uLHigh1.45-7.50 [facility] HospitalComment on above:Order Comment: Specimen Type: BLOOD SPECIMENOrdering Facility: [facility] Address:[address] [place], [place] [address]Performed By: #### 47984-6 ####[facility] LABORATORYCLIA [id number] [place] [address] [place] Neutrophils/100 WBC (Bld)91.6 %NormalIrvine HospitalComment on above:Order Comment: Specimen Type: BLOOD SPECIMENOrdering Facility: [facility] Address:[address] [place], [place] [address]Performed By: #### 61498- 8 ####[facility] LABORATORYCLIA [id number] [place] [address] [place] AMERICANucleated RBC (Bld) [#/Vol]10*3/uLNormal<0.01Irvine HospitalComment on above:Order Comment: Specimen Type: BLOOD SPECIMENOrdering Facility: [facility] Address:[address] [place], [place] [address]Performed By: #### 55835-3 ####[facility] LABORATORYCLIA [id number] [place] [address] [place] OF AMERICANucleated RBC/100 WBC (Bld) [Ratio]0.0 /100 WBCNormalIrvine HospitalComment on above:Order Comment: Specimen Type: BLOOD SPECIMENOrdering Facility: [facility] Address:[address] [place], [place] [address]Performed By: #### 42140-3 ####[facility] LABORATORYCLIA [id number] [place] [id number] [facility]IAL HOSPITALPlatelet mean volume (Bld) [Entitic vol]8.3 fLLow 9.0-12.7Fairch[facility]ic[facility] HospitalComment on above:Order Comment: Specimen Type: BLOOD SPECIMENOrdering Facility: [facility] Address:[address] [place], [place] [address]Performed By: #### 70028-1 ####[facility] LABORATORYCLIA [id number] [place] [address] [place] Platelets (Bld) [#/Vol]251 10*3/yXJatogu941-944Cqhbamxm HospitalComment on above:Order Comment: Specimen Type: BLOOD SPECIMENOrdering Facility: [facility] Address:[address] [place], [place] [address]Performed By: #### 59950-7 ####[facility] LABORATORYCLIA [id number] [place] [address] [facility]IL[facility] MEMORIAL HOSPITALRBC (Bld) [#/Vol]3.60 10*6/uLLow3.90-5.20Fanorthampton state hospital HospitalComment on above:Order Comment: Specimen Type: BLOOD SPECIMENOrdering Facility: [facility] Address:[address] [place], [place] [address]Performed By: #### 24619-0 ####[facility] LABORATORYCLIA [id number] [place] [address] [place] [facility]UNTINGTON HOSPITALWBC (Bld) [#/Vol]10.68 10*3/uLNormal3.70-11.00Fanorthampton state hospital HospitalComment on above:Order Comment: Specimen Type: BLOOD SPECIMENOrdering Facility: [facility] Address:[address] [place], [place] [address]Performed By: #### 70632-2 ####[facility] LABORATORYCLIA [id number] [place] [address] [facility]ITALCBC panel Auto (Bld)on 59-76-9954Cdqqfglkfkj distribution width (RBC) [Ratio]13.7 %Fzuzqf92.5-15.0Fanorthampton state hospital HospitalComment on above:Order Comment: Specimen Type: BLOOD SPECIMENOrdering Facility: [facility] Address:[address] [place] [address] [place], [place] [address]Performed By: #### 07025-6 ####C[facility] LABORATORYCLIA [id number] [address]ETHematocrit (Bld) [Volume fraction]31.6 %Low36.0-46.0 [facility] HospitalComment on above:Order Comment: Specimen Type: BLOOD SPECIMENOrdering Facility: [facility] Address:[address] [place], [place] [address]Performed By: #### 95334-5 ####C[facility] LABORATORYCLIA [id number] [address] Hemoglobin (Bld) [Mass/Vol]10.5 g/dLLow11.5-15.5Ffederal medical center, devens HospitalComment on above:Order Comment: Specimen Type: BLOOD SPECIMENOrdering Facility: [facility] Address:[address] [place], [place] [address]Performed By: #### 36435-8 ####C[facility] LABORATORYCLIA [id number] [address]MC (RBC) [Entitic mass]30.3 btHabpnd13.0-34.0 [facility] HospitalComment on above:Order Comment: Specimen Type: BLOOD SPECIMENOrdering Facility: [facility] Address:[address] [place], [place] [address]Performed By: #### 33938-7 ####[facility] LABORATORYCLIA [id number] [address]ETMCHC (RBC) [Mass/Vol]33.2 g/tBRnmcmj24.5-36.0Fanorthampton state hospital HospitalComment on above:Order Comment: Specimen Type: BLOOD SPECIMENOrdering Facility: [facility] Address:[address] [place], [place] [address]Performed By: #### 84821- 2 ####[facility] LABORATORYCLIA [id number] [place] [address] [place] [facility]UNTINGTON HOSPITALMCV (RBC) [Entitic vol]91.1 lDSpbokl95.0-100.0Fanorthampton state hospital HospitalComment on above:Order Comment: Specimen Type: BLOOD SPECIMENOrdering Facility: [facility] Address:[address] [place], [place] [address]Performed By: #### 37254-7 ####C[facility] LABORATORYCLIA [id number] [place] [address] [facility] MEDICAL CENTERucleated RBC (Bld) [#/Vol]10*3/uLNormal<0.01Fanorthampton state hospital HospitalComment on above:Order Comment: Specimen Type: BLOOD SPECIMENOrdering Facility: [facility] Address:[address] [place], [place] [address]Performed By: #### 26014-3 ####[facility] LABORATORYCLIA [id number] [place] [address] [facility] HOSPITALPlatelet mean volume (Bld) [Entitic vol]8.7 fLLow 9.0-12.7Ffederal medical center, devens HospitalComment on above:Order Comment: Specimen Type: BLOOD SPECIMENOrdering Facility: [facility] Address:[address] [place], [place] [address]Performed By: #### 33177-0 ####[facility] LABORATORYCLIA [id number] [place] [id number] [facility] Platelets (Bld) [#/Vol]239 10*3/uRFoggtx835-361Phkdnjrm HospitalComment on above:Order Comment: Specimen Type: BLOOD SPECIMENOrdering Facility: [facility] Address:[address] [place], [place] [address]Performed By: #### 42003-9 ####[facility] LABORATORYCLIA [id number] [place] [id number] [place] WAYNE HOSPITALRBC (Bld) [#/Vol]3.47 10*6/uLLow3.90-5.20[facility] HospitalComment on above:Order Comment: Specimen Type: BLOOD SPECIMENOrdering Facility: [facility] Address:[address] [place], [place] [address]Performed By: #### 25364-5 ####C[facility] LABORATORYCLIA [id number] [address] OF WAYNE HOSPITALWBC (Bld) [#/Vol]4.61 10*3/uLNormal3.70-11.00FaChelsea Memorial HospitalComment on above:Order Comment: Specimen Type: BLOOD SPECIMENOrdering Facility: [facility] Address:[address] [place], [place] [address]Performed By: #### 08025-2 ####[facility] LABORATORYCLIA [id number] [address]REETHIGH SENSITIVITY TROPONIN Ton 32-05-4660Qxapsnwl T.cardiac High sensitivity method [Mass/Vol]11 ng/LNormal<12FaChelsea Memorial HospitalComment on above: Order Comment: Specimen Type: BLOOD SPECIMENOrdering Facility: [facility] Address:[address] [place], [place] [address]Result Comment: When assessing risk for acute coronary [...] for 30 day MACE.Performed By: #### HSTNT, 32923-3 ####CORN[facility] LABORATORYCLIA [id number] [place] [id number] [facility]PITALHISTORY PHYSICALon 30-96-7386YWHTAEH PHYSICALNormalArbour-Hri Hospital Magnesium SerPl-mCncon 26-00-4394Fthjmgxpa [Mass/Vol]1.9 mg/dLNormal1.7-2.3 [facility] HospitalComment on above:Order Comment: Specimen Type: BLOOD SPECIMENOrdering Facility: [facility] Address:[address] [place], [place] [address]Performed By: #### 98287-1, 2777-1, 34520-2 ####[facility] LABORATORYCLIA [id number] [place] [address] [facility] PROGon 61-97-5456QHSTZLQ PROGNormalIrvine HospitalNURSING PROG NormalIrvine HospitalOPERATIVE NOon 72-50-4938DOYFZRIEK NONormalFairchillicothe hospital HospitalPT EDon 53-93-1266IQ EDNormalIrvine HospitalPhosphate SerPl-mCncon 90-09-6988Dudjrzdne [Mass/Vol]4.2 mg/dLNormal2.7-4.8[facility]-Hri HospitalComment on above:Order Comment: Specimen Type: BLOOD SPECIMENOrdering Facility: [facility] Address:[address] [place], [place] [id number] By: #### 59418-7, 2777-1, ####[facility] LABORATORYCLIA [id number] [place] [id number] [facility]OSPITALSUGICFL PATHOLOGY 07-93-8172WJTO REPORTNoHarley Private HospitalComment on above:Order Comment: Specimen Type: TISSUE SPECIMENOrdering Facility: [facility] Address: [address] [place], [place] [id number] Comment: Surgical Pathology Report Case: [id number] Provider: Laisha Singer MD Collected: 11/08/2023 11:56 AMOrdering Location: [facility] Received: 11/08/2023 01:53 PM Operating RoomPathologist: Oscar Marshall MDSpecimen: Small Bowel, IleostomyPerformed By: #### S ####[facility] LABORATORYCLIA [id number] [place] [id number] [facility]OSPITALCLINICAL HISTORYNoSpringfield Hospital Medical CenterComment on above:Order Comment: Specimen Type: TISSUE SPECIMENOrdering Facility: [facility] Address: [address] [place] [address]Rexncv Comment: Pre-op diagnosis:Attention to ileostomy (HCC) [Z43.2]Partial small bowel obstruction (HCC) [K56.600]Performed By: #### S ####LEONA LABORATORYCLIA [id number] [place] [id number] [facility] WINDBERFINAL DIAGNOSISNormalIrvine HospitalComment on above: Order Comment: Specimen Type: TISSUE SPECIMENOrdering Facility: [facility] Address: [address] [place], [place] [address]Result Comment: Ileostomy, excision:- Enterocutaneous tissue with focal nonspecific inflammatory changes and mucosal erosion, consistent with ostomy site.JEL 11/10/2023 Performed By: #### S ####LEONA LABORATORYCLIA [id number] [address] PERFORMING LABNoSpringfield Hospital Medical CenterComment on above:Order Comment: Specimen Type: TISSUE SPECIMENOrdering Facility: [facility] Address: [address] [place] [address] Comment: Diagnostic interpretation performed at [facility], [address] [place] [address] CLIA# [id number] Director: Dheeraj Suarez M.D.Performed By: #### S ####LEONA LABORATORYCLIA [id number] [place] [address] [facility] WINDBERGROSS DESCRIPTIONHeywood HospitalComment on above: Order Comment: Specimen Type: TISSUE SPECIMENOrdering Facility: [facility] Address: [address] [place] [address] Comment: A. Small Bowel, IleostomyReceived in formalin [...] with a wall thickness of 0.6 cm. Wooling Machine Operator sections are submitted in one cassette.WE November 08, 2023 2:03 PMGross examination performed at [facility], [address] [place] [address] [place], [id number] By: #### S ####[facility] LABORATORYCLIA [id number] [place] [address] [place] OF AMERICAALLIED HEALTHon 19-06-3113IFBWPB HEALTHNormalArbour-Hri HospitalBasic metabolic 2000 panelon 80-89-1770Obmwv gap [Moles/Vol]12 mmol/LNormal9-18FBerkshire Medical Center Comment on above:Order Comment: Specimen Type: BLOOD SPECIMENOrdering Facility: [facility] Address:[address] [place], [place] [address] Performed By: #### 64107-9, , 2776-07 ####CORNELIUS LABORATORYCLIA [id number] [place] [id number] [place] OF AMERICACalcium [Mass/Vol]9.3 mg/dLNormal8.5-10.2FBerkshire Medical CenterComment on above:Order Comment: Specimen Type: BLOOD SPECIMENOrdering Facility: [facility] Address:[address] [place] [address]Aqrtihfsu By: #### 42080- 2, , 2776-07 ####CORNELIUS LABORATORYCLIA [id number] [place] [address] [place] OF AMERICAChloride [Moles/Vol]102 mmol/L Hlbfnf20-233Iofcoekf HospitalComment on above:Order Comment: Specimen Type: BLOOD SPECIMENOrdering Facility: [facility] Address:[address] [place], [place] [address]Wvqjnbllp By: #### 43111-3, , 2776-07 ####CORNELIUS LABORATORYCLIA [id number] [place] [address] [place] OF AMERICACO2 [Moles/Vol]22 mmol/LJpceyw58-12Uvcokqgk Hospital Comment on above:Order Comment: Specimen Type: BLOOD SPECIMENOrdering Facility: [facility] Address:[address] [place] [address] Performed By: #### 70378-4, , 2776-07 ####CORNELIUS LABORATORYCLIA [id number] [place] [address] [place] Creatinine [Mass/Vol]0.83 mg/dLNormal0.58-0.96[facility] on above: Order Comment: Specimen Type: BLOOD SPECIMENOrdering Facility: [facility] Address:[address] [place], [place] [address]Performed By: #### 66228- 2, , 2776-07 ####CORNELIUS LABORATORYCLIA [id number] [place] [address] [facility] HOSPITALCreatinine and Glomerular filtration rate.predicted panel (S/P/Bld)76 mL/min/1.73m???Normal>=60FaBaystate Mary Lane Hospital on above:Order Comment: Specimen Type: BLOOD SPECIMENOrdering Facility: [facility] Address:[address] [place], [place] [address]Result Comment: Estimated Glomerular Filtration Rate (eGFR) is [...] accurately reflect actual GFR. Performed By: #### 56104-3, , 2776-07 ####CORNELIUS LABORATORYCLIA [id number] [place] [address] [place] OF AMERICAGlucose [Mass/Vol]94 mg/fDCykzwq69-26RwceocpuBaystate Mary Lane Hospital on above:Order Comment: Specimen Type: BLOOD SPECIMENOrdering Facility: [facility] Address:[address] [place], [place] [address]Result Comment: The [place]ron[place] Diabetes Association (ADA) provides guidance for cutoff [...] Standards of Medical Care in Diabetes 2016, [place] Diabetes Association. Diabetes Care. 2016.39(Suppl 1). Performed By: #### 55317-3, , 2776-07 ####CORNELIUS LABORATORYCLIA [id number] [place] [address] [place] Potassium [Moles/Vol]4.0 mmol/LNormal3.7-5.1Ffederal medical center, devens HospitalComment on above: Order Comment: Specimen Type: BLOOD SPECIMENOrdering Facility: [facility] Address:[address] [place], [place] [address]Performed By: #### 08212- 2, , 2776-07 ####CORNELIUS LABORATORYCLIA [id number] [address]ETSodium [Moles/Vol]136 mmol/LNormal 136-144Arbour-Hri HospitalComment on above:Order Comment: Specimen Type: BLOOD SPECIMENOrdering Facility: [facility] Address:[address] [place], [place] [address]Performed By: #### 58440-0, , 2776-07 ####CORNELIUS LABORATORYCLIA [id number] [place] [address] [place] OF AMERICAUrea nitrogen [Mass/Vol]18 mg/dLNormal7-21Arbour-Hri HospitalComment on above:Order Comment: Specimen Type: BLOOD SPECIMENOrdering Facility: [facility] Address:[address] [place], [place] [address]Performed By: #### 67781-1, , 2776-07 ####CORNELIUS LABORATORYCLIA [id number] [place] [address] [facility]ITALCBC panel Auto (Bld)on 84-53-3832Nrdkffiryfb distribution width (RBC) [Ratio]14.2 %Djzely16.5-15.0 [facility] Memorial Hospitalment on above:Order Comment: Specimen Type: BLOOD SPECIMENOrdering Facility: [facility] Address:[address] [place], [place] [address]Performed By: #### 78553-7 ####CORNELIUS LABORATORYCLIA [id number] [address] Hematocrit (Bld) [Volume fraction]35.8 %Low36.0-46.0Fanorthampton state hospital HospitalComment on above:Order Comment: Specimen Type: BLOOD SPECIMENOrdering Facility: [facility] Address:[address] [place], [place] [address]Performed By: #### 76991-8 ####CORNELIUS LABORATORYCLIA [id number] [address] ST[address]ETHemoglobin (Bld) [Mass/Vol]11.9 g/dLNormal 11.5-15.5Ffederal medical center, devens HospitalComment on above:Order Comment: Specimen Type: BLOOD SPECIMENOrdering Facility: [facility] Address:[address] [place], [place] [address]Performed By: #### 14223-6 ####CORNELIUS LABORATORYCLIA [id number] [address] (RBC) [Entitic mass]30.4 mgJwuaqb83.0-34.0Fanorthampton state hospital HospitalComment on above: Order Comment: Specimen Type: BLOOD SPECIMENOrdering Facility: [facility] Address:[address] [place], [place] [address]Performed By: #### 57324- 2 ####CORNELIUS LABORATORYCLIA [id number] [place] [address] [facility] (RBC) [Mass/Vol]33.2 g/mOZlxihy47.5-36.0Fanorthampton state hospital HospitalComment on above:Order Comment: Specimen Type: BLOOD SPECIMENOrdering Facility: [facility] Address:[address] [place], [place] [address]Performed By: #### 18760-3 ####CORNELIUS LABORATORYCLIA [id number] [address] COOK STREETMCV (RBC) [Entitic vol] 91.6 tWJkgmwc36.0-100.0Fanorthampton state hospital HospitalComment on above:Order Comment: Specimen Type: BLOOD SPECIMENOrdering Facility: [facility] Address:[address] [place], [place] [address]Performed By: #### 62164-2 ####CORNELIUS LABORATORYCLIA [id number] [place] [address] [facility] LIFEPOINT HEALTHucleated RBC (Bld) [#/Vol]10*3/uLNormal<0.01Fanorthampton state hospital HospitalComment on above:Order Comment: Specimen Type: BLOOD SPECIMENOrdering Facility: [facility] Address:[address] [place], [place] [address]Performed By: #### 61706-2 ####CORNELIUS LABORATORYCLIA [id number] [address]ETPlatelet mean volume (Bld) [Entitic vol]8.2 fLLow 9.0-12.7Ffederal medical center, devens HospitalComment on above:Order Comment: Specimen Type: BLOOD SPECIMENOrdering Facility: [facility] Address:[address] [place], [place] [address]Performed By: #### 59537-8 ####CORNELIUS LABORATORYCLIA [id number] [place] [address] [facility] Platelets (Bld) [#/Vol]271 10*3/vWManogy404-959Vrcxmjyk HospitalComment on above:Order Comment: Specimen Type: BLOOD SPECIMENOrdering Facility: [facility] Address:[address] [place], [place] [address]Performed By: #### 87034-5 ####CORNELIUS LABORATORYCLIA [id number] [place] [address] [place] [facility]TINGTON HOSPITALRBC (Bld) [#/Vol]3.91 10*6/uLNormal3.90-5.20 Irvine HospitalComment on above:Order Comment: Specimen Type: BLOOD SPECIMENOrdering Facility: [facility] Address:[address] [place], [place] [address]Performed By: #### 15203-6 ####CORNELIUS LABORATORYCLIA [id number] [place] [address] [place] OF AMERICAWBC (Bld) [#/Vol]5.03 10*3/uLNormal3.70-11.00Fanorthampton state hospital HospitalComment on above:Order Comment: Specimen Type: BLOOD SPECIMENOrdering Facility: [facility] Address:[address] [place], [place] [address]Performed By: #### 53308- 2 ####CORNELIUS LABORATORYCLIA [id number] [place] [address] [place] WAYNE HOSPITALMagnesium SerPl-mCncon 66-69-7927Spbwicvvv [Mass/Vol]2.0 mg/dLNormal1.7-2.3Fairch[facility] HospitalComment on above:Order Comment: Specimen Type: BLOOD SPECIMENOrdering Facility: [facility] Address:[address] [place], [place] [address]Performed By: #### 76910-0, , 2776- ####CORNELIUS LABORATORYCLIA [id number] [place] [address] [facility] HERZEGOVINAURSING PROGon 97-74-8447EGKIYIT PROGNormalArbour-Hri HospitalNURSING PROGNormalIrvine HospitalPhosphate SerPl-mCncon 11-07-2023 Phosphate [Mass/Vol]4.6 mg/dLNormal2.7-4.8Fanorthampton state hospital HospitalComment on above: Order Comment: Specimen Type: BLOOD SPECIMENOrdering Facility: [facility] Address:[address] [place], [place] [address]Performed By: #### 29971- 2, , 2777 ####CORNELIUS LABORATORYCLIA [id number] [place] [address] [place] OF AMERICAXR COLON SINGLE CONTRASTon 08-46-8889KK COLON SINGLE CONTRASTNormalFanorthampton state hospital HospitalALLKAISER FOUNDATION HOSPITAL HEALTHon 01-77-5222NZGWXO HEALTHNormalMassachusetts Mental Health Center W Auto Differential panel (Bld)on 91-30-0725Wjgakkiwb (Bld) [#/Vol]0.03 10*3/uLNormal<0.11Irvine HospitalComment on above:Order Comment: Specimen Type: BLOOD SPECIMENOrdering Facility: [facility] Address:[address] [place], [place] [address]Performed By: #### 56352-7 ####CORNELIUS LABORATORYCLIA [id number] [place] [address] [place] OF AMERICABasophils/100 WBC (Bld) 0.4 %NormalIrvine HospitalComment on above:Order Comment: Specimen Type: BLOOD SPECIMENOrdering Facility: [facility] Address:[address] [place], [place] [address]Performed By: #### 79814-8 ####CORNELIUS LABORATORYCLIA [id number] [place] [address] [place] Differential cell count method Nom (Bld)AutoNormalIrvine HospitalComment on above:Order Comment: Specimen Type: BLOOD SPECIMENOrdering Facility: [facility] Address:[address] [place], [place] [address]Performed By: #### 46494-6 ####CORNELIUS LABORATORYCLIA [id number] [place] [address] [place] AMERICAEosinophils (Bld) [#/Vol]0.11 10*3/uLNormal<0.46 Irvine HospitalComment on above:Order Comment: Specimen Type: BLOOD SPECIMENOrdering Facility: [facility] Address:[address] [place], [place] [address]Performed By: #### 65385-9 ####CORNELIUS LABORATORYCLIA [id number] [place] [address] [place] Eosinophils/100 WBC (Bld)1.4 %NormalIrvine HospitalComment on above:Order Comment: Specimen Type: BLOOD SPECIMENOrdering Facility: [facility] Address:[address] [place], [place] [address]Performed By: #### 00488- 8 ####CORNELIUS LABORATORYCLIA [id number] [place] [address] [place] AMERICAErythrocyte distribution width (RBC) [Ratio]13.9 %Normal 11.5-15.0Irvine HospitalComment on above:Order Comment: Specimen Type: BLOOD SPECIMENOrdering Facility: [facility] Address:[address] [place], [place] [address]Performed By: #### 95894-6 ####CORNELIUS LABORATORYCLIA [id number] [place] [address] [place] Hematocrit (Bld) [Volume fraction]39.4 %Mmlrcp74.0-46.0Fanorthampton state hospital HospitalComment on above:Order Comment: Specimen Type: BLOOD SPECIMENOrdering Facility: [facility] Address:[address] [place] [address] Performed By: #### 33892-4 ####CORNELIUS LABORATORYCLIA [id number] [place] [address] [place] AMERICAHemoglobin (Bld) [Mass/Vol] 13.3 g/zMUydkth13.5-15.5Ffederal medical center, devens HospitalComment on above:Order Comment: Specimen Type: BLOOD SPECIMENOrdering Facility: [facility] Address:[address] [place], [place] [address]Performed By: #### 58315-1 ####CORNELIUS LABORATORYCLIA [id number] [place] [address] [place] AMERICAImmature granulocytes (Bld) [#/Vol]10*3/uLNormal<0.10 Irvine HospitalComment on above:Order Comment: Specimen Type: BLOOD SPECIMENOrdering Facility: [facility] Address:[address] [place], [place] [address]Performed By: #### 42136-6 ####CORNELIUS LABORATORYCLIA [id number] [place] [address] [place] Immature granulocytes/100 WBC (Bld)0.3 %NormalIrvine HospitalComment on above: Order Comment: Specimen Type: BLOOD SPECIMENOrdering Facility: [facility] Address:[address] [place], [place] [address]Performed By: #### 96197- 8 ####CORNELIUS LABORATORYCLIA [id number] [place] [address] [place] WAYNE HOSPITALLymphocytes (Bld) [#/Vol]0.63 10*3/uLLow1.00-4.00 Irvine HospitalComment on above:Order Comment: Specimen Type: BLOOD SPECIMENOrdering Facility: [facility] Address:[address] [place], [place] [address]Performed By: #### 86882-0 ####CORNELIUS LABORATORYCLIA [id number] [place] [address] [place] Lymphocytes/100 WBC (Bld)8.1 %NormalIrvine HospitalComment on above:Order Comment: Specimen Type: BLOOD SPECIMENOrdering Facility: [facility] Address:[address] [place], [place] [address]Performed By: #### 74977- 8 ####CORNELIUS LABORATORYCLIA [id number] [place] [address] [facility] (RBC) [Entitic mass]30.1 jeUxtfks82.0-34.0Irvine HospitalComment on above:Order Comment: Specimen Type: BLOOD SPECIMENOrdering Facility: [facility] Address:[address] [place], [place] [address]Performed By: #### 94837-2 ####CORNELIUS LABORATORYCLIA [id number] [place] [address] [facility] (RBC) [Mass/Vol] 33.8 g/zEKzhpnk76.5-36.0Irvine HospitalComment on above:Order Comment: Specimen Type: BLOOD SPECIMENOrdering Facility: [facility] Address:[address] [place], [place] [address]Performed By: #### 77308-4 ####CORNELIUS LABORATORYCLIA [id number] [address] (RBC) [Entitic vol]89.1 nMHiptyq50.0-100.0Irvine HospitalComment on above:Order Comment: Specimen Type: BLOOD SPECIMENOrdering Facility: [facility] Address:[address] [place], [place] [address]Performed By: #### 30341-7 ####CORNELIUS LABORATORYCLIA [id number] [place] [address] [place] AMERICAMonocytes (Bld) [#/Vol] 0.47 10*3/uLNormal<0.87Irvine HospitalComment on above:Order Comment: Specimen Type: BLOOD SPECIMENOrdering Facility: [facility] Address:[address] [place], [place] [address]Performed By: #### 00552-3 ####CORNELIUS LABORATORYCLIA [id number] [place] [address] [place] AMERICAMonocytes/100 WBC (Bld)6.1 %NormalIrvine HospitalComment on above: Order Comment: Specimen Type: BLOOD SPECIMENOrdering Facility: [facility] Address:[address] [place], [place] [address]Performed By: #### 43514- 8 ####CORNELIUS LABORATORYCLIA [id number] [place] [address] [place] AMERICANeutrophils (Bld) [#/Vol]6.48 10*3/uLNormal1.45-7.50 Arbour-Hri HospitalCombeaumont hospital on above:Order Comment: Specimen Type: BLOOD SPECIMENOrdering Facility: [facility] Address:[address] [place], [place] [address]Performed By: #### 28636-4 ####CORNELIUS LABORATORYCLIA [id number] [place] [address] [place] Neutrophils/100 WBC (Bld)83.7 %NormalIrvine HospitalComment on above:Order Comment: Specimen Type: BLOOD SPECIMENOrdering Facility: [facility] Address:[address] [place], [place] [address]Performed By: #### 49316- 8 ####CORNELIUS LABORATORYCLIA [id number] [place] [id number] [place] AMERICANucleated RBC (Bld) [#/Vol]10*3/uLNormal<0.01Irvine HospitalComment on above:Order Comment: Specimen Type: BLOOD SPECIMENOrdering Facility: [facility] Address:[address] [place], [place] [address]Performed By: #### 98650-9 ####CORNELIUS LABORATORYCLIA [id number] [place] [address] [place] AMERICANucleated RBC/100 WBC (Bld) [Ratio]0.0 /100 WBCNormalFanorthampton state hospital HospitalComment on above:Order Comment: Specimen Type: BLOOD SPECIMENOrdering Facility: [facility] Address:[address] [place], [place] [address]Performed By: #### 39236-0 ####CORNELIUS LABORATORYCLIA [id number] [address] OF AMERICAPlatelet mean volume (Bld) [Entitic vol]8.5 fLLow 9.0-12.7Ffederal medical center, devens HospitalComment on above:Order Comment: Specimen Type: BLOOD SPECIMENOrdering Facility: [facility] Address:[address] [place], [place] [address]Performed By: #### 50714-4 ####CORNELIUS LABORATORYCLIA [id number] [place] [address] [place] Platelets (Bld) [#/Vol]329 10*3/xAFnngwa408-028Pyzfvcmp HospitalComment on above:Order Comment: Specimen Type: BLOOD SPECIMENOrdering Facility: [facility] Address:[address] [place], [place] [address]Performed By: #### 65038-5 ####CORNELIUS LABORATORYCLIA [id number] [place] [address] [place] AMERICARBC (Bld) [#/Vol]4.42 10*6/uLNormal3.90-5.20 Irvine HospitalComment on above:Order Comment: Specimen Type: BLOOD SPECIMENOrdering Facility: [facility] Address:[address] [place], [place] [address]Performed By: #### 78499-2 ####CORNELIUS LABORATORYCLIA [id number] [place] [address] [place] AMERICAWBC (Bld) [#/Vol]7.74 10*3/uLNormal3.70-11.00Arbour-Hri HospitalComment on above:Order Comment: Specimen Type: BLOOD SPECIMENOrdering Facility: [facility] Address:[address] [place], [place] [address]Performed By: #### 74451- 8 ####[facility] LABORATORYCLIA [id number] [place] [address] [place] OF AMERICACT ABD/PEL W IVCONon 24-88-6368PJ ABD/PEL W IVCONNormal Arbour-Hri HospitalComprehensive metabolic 2000 panelon 21-87-3185Glotqab [Mass/Vol]4.7 g/dLNormal3.9-4.9FaChelsea Memorial HospitalComment on above:Order Comment: Specimen Type: BLOOD SPECIMENOrdering Facility: [facility] Address:[address] [place], [place] [address]Performed By: #### 61818-6, 3040-3, ####[facility] LABORATORYCLIA [id number] [place] [address] [place] AMERICAALP [Catalytic activity/Vol]100 U/CQtjmwv05-961 [facility]-Hri HospitalCombeaumont hospital on above:Order Comment: Specimen Type: BLOOD SPECIMENOrdering Facility: [facility] Address:[address] [place], [place] [address]Performed By: #### 98312-8, 3040-3, ####[facility] LABORATORYCLIA [id number] [place] [address] [place] AMERICAALT [Catalytic activity/Vol]32 U/LNormal7-38FaChelsea Memorial HospitalComment on above:Order Comment: Specimen Type: BLOOD SPECIMENOrdering Facility: [facility] Address:[address] [place], [place] [address]Performed By: #### 35186-5, 3040-3, 80184-7 ####[facility] LABORATORYCLIA [id number] [place] [address] [place] AMERICAAnion gap [Moles/Vol]16 mmol/L Normal9-18Ffederal medical center, devens HospitalComment on above:Order Comment: Specimen Type: BLOOD SPECIMENOrdering Facility: [facility] Address:[address] [place] [address] [place] [address]Performed By: #### 80511-1, 0-3, ####CORNELIUS LABORATORYCLIA [id number] [place] [address] [place] AMERICAAST [Catalytic activity/Vol]39 U/UArjw28-06Sdbfffyf HospitalComment on above:Order Comment: Specimen Type: BLOOD SPECIMENOrdering Facility: [facility] Address:[address] [place], [place] [address]Performed By: #### 09685-6, 3, ####CORNELIUS LABORATORYCLIA [id number] [place] [address] [place] AMERICABilirubin [Mass/Vol]0.8 mg/dL Normal0.2-1.3Ffederal medical center, devens HospitalComment on above:Order Comment: Specimen Type: BLOOD SPECIMENOrdering Facility: [facility] Address:[address] [place], [place] [address]Performed By: #### 94781-6, 3, ####CORNELIUS LABORATORYCLIA [id number] [place] [address] [place] AMERICACalcium [Mass/Vol]10.0 mg/dLNormal8.5-10.2Ffederal medical center, devens HospitalComment on above:Order Comment: Specimen Type: BLOOD SPECIMENOrdering Facility: [facility] Address:[address] [place] [address]Jjmtstwla By: #### 69857-0, 03, ####CORNELIUS LABORATORYCLIA [id number] [place] [address] [place] Chloride [Moles/Vol]99 mmol/EOloidj76-666Qihgwdcx HospitalComment on above:Order Comment: Specimen Type: BLOOD SPECIMENOrdering Facility: [facility] Address:[address] [place], [place] [address]Performed By: #### 78368- 8, 3040-3, ####[facility] LABORATORYCLIA [id number] [place] [address] [place] AMERICACO2 [Moles/Vol]20 mmol/SRjy98-93 [facility] Hospitalment on above:Order Comment: Specimen Type: BLOOD SPECIMENOrdering Facility: [facility] Address:[address] [place] [address] [place] [address]Performed By: #### 14109-0, 03, ####[facility] LABORATORYCLIA [id number] [place] [address] [place] AMERICACreatinine [Mass/Vol]0.84 mg/dLNormal0.58-0.96Ar[facility]-Hri HospitalComment on above:Order Comment: Specimen Type: BLOOD SPECIMENOrdering Facility: [facility] Address:[address] [place] [address] Performed By: #### 57365-2, 3, ####[facility] LABORATORYCLIA [id number] [place] [id number] [place] Creatinine and Glomerular filtration rate.predicted panel (S/P/Bld)75 mL/min/1.73m???Normal>=60Ar[facility]-Hri HospitalComment on above:Order Comment: Specimen Type: BLOOD SPECIMENOrdering Facility: [facility] Address:[address] [place], [place] [address]Result Comment: Estimated Glomerular Filtration Rate (eGFR) is calculated using the 2020 CKD-EPI creatinine equation. This equation utilizes serum creatinine, sex, and age as parameters. The creatinine assay has traceable calibration to isotope dilution-mass spectrometry. Refer to KDIGO guidelines for clinical interpretation. In patients with unstable renal function, e.g. those with acute kidney injury, the eGFR may not accurately reflect actual GFR.Performed By: #### 24517-6, 3040-3, ####[facility] LABORATORYCLIA [id number] [place] [address] [place] AMERICAGlucose [Mass/Vol]107 mg/rYWfoo17-52[facility] Comment on above:Order Comment: Specimen Type: BLOOD SPECIMENOrdering Facility: [facility] Address:[address] [place], [place] [address]Result Comment: The [place] [employer] (ADA) provides guidance for cutoff [...] Standards of Medical Care in Diabetes 2016, [place] [employer]. Diabetes Care. 2016.39(Suppl 1).Performed By: #### 16526-1, 3039-3, ####[facility]ORATORYCLIA [id number] [place] [address] [place] AMERICAPotassium [Moles/Vol]4.0 mmol/LNormal3.7-5.1FBerkshire Medical CenterComment on above:Order Comment: Specimen Type: BLOOD SPECIMENOrdering Facility: [facility] Address:[address] [place], [place] [id number] By: #### 35756-7, 03, ####CORNELIUS LABORATORYCLIA [id number] [place] [id number] [place] OF AMERICAProtein [Mass/Vol]7.6 g/dL Normal6.3-8.0Ar[facility]-Hri HospitalComment on above:Order Comment: Specimen Type: BLOOD SPECIMENOrdering Facility: [facility] Address:[address] [place], [place] [address]Performed By: #### 84708-0, 03, ####CORNELIUS LABORATORYCLIA [id number] [place] [id number] [place] OF AMERICASodium [Moles/Vol]135 mmol/YRkw139-787Vxlnopct Hospital Comment on above:Order Comment: Specimen Type: BLOOD SPECIMENOrdering Facility: [facility] Address:[address] [place] [address] Performed By: #### 70201-0, 3039-3, ####CORNELIUS LABORATORYCLIA [id number] [place] [address] [place] OF AMERICAUrea nitrogen [Mass/Vol]18 mg/dLNormal7-21Arbour-Hri HospitalComment on above:Order Comment: Specimen Type: BLOOD SPECIMENOrdering Facility: [facility] Address:[address] [place], [place] [address]Performed By: #### 65981- 8, 3, ####CORNELIUS LABORATORYCLIA [id number] [place] [id number] [place] OF AMERICAED PROV NOTEon 71-79-1261CQ PROV NOTENormalIrvine HospitalED Triage Noteon 99-81-8217FH Triage NoteNormal Irvine HospitalHISTORY PHYSICALon 16-10-4614IDZICEW PHYSICALNormTewksbury State Hospital HospitalLipase SerPl-cCncon 23-89-0940Lpoohh [Catalytic activity/Vol]9 U/LLow 16-61Ar[facility]-Hri HospitalComment on above:Order Comment: Specimen Type: BLOOD SPECIMENOrdering Facility: [facility] Address:[address] [place], [place] [address]Performed By: #### 07669-0, 3, ####CORNELIUS LABORATORYCLIA [id number] [place] [id number] [place] OF AMERICAMagnesium SerPl-mCncon 23-68-8421Rwdfwwcss [Mass/Vol]1.4 mg/dLLow1.7-2.3 [facility]-Hri HospitalComment on above:Order Comment: Specimen Type: BLOOD SPECIMENOrdering Facility: [facility] Address:[address] [place], [place] [address]Performed By: #### 26994-6, 3040-3, ####CORNELIUS LABORATORYCLIA [id number] [place] [id number] [facility] CENTERURSING PROGon 87-90-9582NUBERIB PROGNormalFanorthampton state hospital HospitalPT panel Coag (PPP)on 31-99-9598NTW Coag (PPP) [Relative time]0.9 {INR}Normal0.9-1.3 Irvine HospitalComment on above:Order Comment: Specimen Type: BLOOD SPECIMENOrdering Facility: [facility] Address:[address] [place] [id number] Comment: Vitamin K Antagonist (VKA) Therapeutic Range: INR 2 to 3 (Target INR of 2.5)Note: For patients treated with VKA drugs, such as warfarin, the [employer] 2012 Guideline recommends [...] al. Chest 2012, 141:7S-47SNishimura RA, et al. [facility] 2017, 70: 252-289 Performed By: #### 39701-0, 98068-8 ####CORNELIUS LABORATORYCLIA [id number] [place] [id number] [facility]ITALPT Coag (PPP) [Time] 10.6 sNormal9.7-13.0Irvine HospitalComment on above:Order Comment: Specimen Type: BLOOD SPECIMENOrdering Facility: [facility] Address:[address] [place] [id number] By: #### 65753-7, 41755-0 ####CORNELIUS LABORATORYCLIA [id number] [place] [address] [facility] HOSPITALTYPE + SCREENon 09-71-6759BJVMTrclrkIbpjjdzp HospitalComment on above: Order Comment: Specimen Type: BLOOD SPECIMENOrdering Facility: [facility] Address:[address] [place], [place] [address]Performed By: #### TSCR ####CORNELIUS BLOOD BANKCLIA [id number] [place] [address] [facility] HOSPITALHISTORICAL AB SCR STATUSNegativeNormTewksbury State Hospital Hospital Comment on above:Order Comment: Specimen Type: BLOOD SPECIMENOrdering Facility: [facility] Address:[address] [place] [address] Performed By: #### TSCR ####CORNELIUS BLOOD BANKCLIA [id number] [place] [address] [facility]OSPITALRh Nom (Bld)NegativeNoSpringfield Hospital Medical CenterComment on above:Order Comment: Specimen Type: BLOOD SPECIMENOrdering Facility: [facility] Address:[address] [place], [place] [address]Performed By: #### TSCR ####CORNELIUS BLOOD BANKCLIA [id number] [place] [address] [place] OF AMERICATYPE AND SCREEN BHJGAEYNPX79/02/2024 23:59NormalArbour-Hri HospitalComment on above: Order Comment: Specimen Type: BLOOD SPECIMENOrdering Facility: [facility] Address:[address] [place], [place] [address]Performed By: #### TSCR ####CORNELIUS BLOOD BANKCLIA [id number] [place] [id number] [place] OF AMERICAUrinalysis complete panel (U)on 68-22-5947Rrlzlcgvq Ql (U)NegativeNormalNegativeIrvine HospitalComment on above:Order Comment: Specimen Type: URINE SPECIMENOrdering Facility: [facility] Address:[address] [place], [place] [address]Performed By: #### 89596-1 ####CORNELIUS LABORATORYCLIA [id number] [place] [address] [place] OF WAYNE HOSPITALClarity (Unsp spec)ClearNormalClearArbour-Hri Hospital Comment on above:Order Comment: Specimen Type: URINE SPECIMENOrdering Facility: [facility] Address:[address] [place] [address] Performed By: #### 74523-0 ####CORNELIUS LABORATORYCLIA [id number] [place] [id number] [place] AMERICAColor (U)Light YellowNormal YellowFairview HospitalComment on above:Order Comment: Specimen Type: URINE SPECIMENOrdering Facility: [facility] Address:[address] [place], [place] [address]Performed By: #### 86757-3 ####CORNELIUS LABORATORYCLIA [id number] [place] [address] [place]IVEK Epithelial cells LM.HPF (Urine sed) [#/Area]FewNormalFairchillicothe hospital HospitalComment on above:Order Comment: Specimen Type: URINE SPECIMENOrdering Facility: [facility] Address:[address] [place], [place] [address]Performed By: #### 80943-4 ####CORNELIUS LABORATORYCLIA [id number] [place] [address] [place] AMERICAGlucose Test strip (U) [Mass/Vol]NegativeNormal Trace, NegativeFairchillicothe hospital HospitalComment on above:Order Comment: Specimen Type: URINE SPECIMENOrdering Facility: [facility] Address:[address] [place], [place] [address]Performed By: #### 78131-4 ####CORNELIUS LABORATORYCLIA [id number] [place] [address] [place] Hemoglobin Ql (U)1+AbnormalNegative, TraceFairview HospitalComment on above: Order Comment: Specimen Type: URINE SPECIMENOrdering Facility: [facility] Address:[address] [place], [place] [address]Performed By: #### 28792- 8 ####CORNELIUS LABORATORYCLIA [id number] [place] [address] [place] WAYNE HOSPITALKetones Ql (U)NegativeNormalNegative, TraceFairview HospitalComment on above:Order Comment: Specimen Type: URINE SPECIMENOrdering Facility: [facility] Address:[address] [place], [place] [address]Performed By: #### 86835-3 ####[facility] LABORATORYCLIA [id number] [place] [id number] [place] OF AMERICALeukocyte esterase Test strip Ql (U)NegativeNormalNegative, 25 Melody/uLFairchillicothe hospital HospitalComment on above: Order Comment: Specimen Type: URINE SPECIMENOrdering Facility: [facility] Address:[address] [place], [place] [address]Performed By: #### 98078- 8 ####CORNELIUS LABORATORYCLIA [id number] [place] [address] [place] AMERICANitrite Ql (U)NegativeNormalNegativeIrvine Hospital Comment on above:Order Comment: Specimen Type: URINE SPECIMENOrdering Facility: [facility] Address:[address] [place] [address] Performed By: #### 89701-8 ####CORNELIUS LABORATORYCLIA [id number] [place] [address] [place] AMERICApH (U)6.5 [pH]Normal5.0-8.0 Arbour-Hri HospitalComment on above:Order Comment: Specimen Type: URINE SPECIMENOrdering Facility: [facility] Address:[address] [place], [place] [address]Performed By: #### 02467-9 ####CORNELIUS LABORATORYCLIA [id number] [place] [address] [place] AMERICAProtein (U) [Mass/Vol]TraceNormalTrace, NegativeIrvine HospitalComment on above:Order Comment: Specimen Type: URINE SPECIMENOrdering Facility: [facility] Address:[address] [place], [place] [address]Performed By: #### 09144- 8 ####CORNELIUS LABORATORYCLIA [id number] [place] [id number] [place] WAYNE HOSPITALRB LM.HPF (Urine sed) [#/Area]0-3 /HPFNormal0-3 /HPF Irvine HospitalComment on above:Order Comment: Specimen Type: URINE SPECIMENOrdering Facility: [facility] Address:[address] [place], [place] [address]Performed By: #### 17547-7 ####CORNELIUS LABORATORYCLIA [id number] [place] [address] [place] Specific gravity (U) [Rel density]>1.890Qket3.005-1.030Fanorthampton state hospital HospitalComment on above:Order Comment: Specimen Type: URINE SPECIMENOrdering Facility: [facility] Address:[address] [place] [address] Performed By: #### 53276-1 ####CORNELIUS LABORATORYCLIA [id number] [place] [id number] [place] AMERICAUrobilinogen Ql (U)Normal NormalNormalFanorthampton state hospital HospitalComment on above:Order Comment: Specimen Type: URINE SPECIMENOrdering Facility: [facility] Address:[address] [place], [place] [address]Performed By: #### 55218-1 ####CORNELIUS LABORATORYCLIA [id number] [place] [address] [place] AMERICAWBC LM.HPF (Urine sed) [#/Area]0-5 /HPFNormal0-5 /HPFFanorthampton state hospital HospitalComment on above:Order Comment: Specimen Type: URINE SPECIMENOrdering Facility: [facility] Address:[address] [place], [place] [address]Performed By: #### 26647-9 ####CORNELIUS LABORATORYCLIA [id number] [place] [address] [place] OF AMERICAaPTT PPPon 81-90-9119qDKN Coag (PPP) [Time]25.4 s Afeytd15.0-32.4Ffederal medical center, devens HospitalComment on above:Order Comment: Specimen Type: BLOOD SPECIMENOrdering Facility: [facility] Address:[address] [place], [place] [address]Performed By: #### 55459-1, 46290-8 ####CORNELIUS LABORATORYCLIA [id number] [place] [id number] [place] OF AMERICABasophils Auto (Bld) [#/Vol]Ordered By: Ion Eckert on 10-28-2023 Basophils (Bld) [#/Vol]0.0 10*3/uL0.0-0.2FMcCullough-Hyde Memorial Hospital Basophils/100 WBC Auto (Bld)Ordered By: Ion Eckert on 23-50-0588Macbwgyge/100 WBC (Bld)0.6 %.[facility]wood HospitalCarbon dioxide, total [Moles/volume] in Serum or PlasmaOrdered By: Ion Eckert on 28-69-9032MN6 [Moles/Vol]31.8 mmol/L21.0-31.0[facility] HospitalChloride [Moles/volume] in Serum or PlasmaOrdered By: Ion Eckert on 83-56-8146Wcusgpmy [Moles/Vol]104 mmol/Y84-004ExjtxqielParkwood HospitalCreatinine [Mass/volume] in Serum or PlasmaOrdered By: Ion Eckert on 45-14-4729Itsttenkuc [Mass/Vol]0.60 mg/dL0.60-1.20[facility] HospitalEosinophils Auto (Bld) [#/Vol]Ordered By: Ion Eckert on 62-92-7486Sfrmpbtcxzt (Bld) [#/Vol]0.4 10*3/uL0.0-0.45[facility] HospitalEosinophils/100 WBC Auto (Bld) Ordered By: Ion Eckert on 36-48-7770Nwajnzjgcrx/100 WBC (Bld)7.1 %.[facility] HospitalErythrocyte distribution width Auto (RBC) [Ratio]Ordered By: Ion Eckert on 48-39-8745Lesuslpicdu distribution width (RBC) [Ratio]14.9 % 11.9-15.3FMcCullough-Hyde Memorial HospitalHematocrit Auto (Bld) [Volume fraction]Ordered By: Ion Eckert on 64-10-2464Dyqsgmpkdy (Bld) [Volume fraction] 31.9 %34.0-46.4FMcCullough-Hyde Memorial HospitalHemoglobin [Mass/volume] in BloodOrdered By: Ion Eckert on 65-19-3216Bunixeydqe (Bld) [Mass/Vol]10.6 g/dL 11.8-15.4FMcCullough-Hyde Memorial HospitalLeukocytes [#/volume] corrected for nucleated erythrocytes in Blood by Automated counOrdered By: Ion Eckert on 88-29-6456RNW corrected for nucl RBC Auto (Bld) [#/Vol]5.6 10*3/uL3.8-11.6 [facility] HospitalLymphocytes Auto (Bld) [#/Vol]Ordered By: Ion Eckert on 10-30-0025Fxycxfamycj (Bld) [#/Vol]0.8 10*3/uL1.00-4.8[facility] HospitalLymphocytes/100 WBC Auto (Bld)Ordered By: Ion Eckert on 77-42-7679Ommftgbgjnl/100 WBC (Bld)13.6 %.[facility] Auto (RBC) [Entitic mass]Ordered By: Ion Eckert on 15-57-0042FYH (RBC) [Entitic mass]29.7 pg24.7-34.3FMcCullough-Hyde Memorial HospitalMCHC Auto (RBC) [Mass/Vol]Ordered By: Ion Eckert on 48-00-6193VEJS (RBC) [Mass/Vol]33.2 g/dL 32.0-35.0[facility] HospitalMCV Auto (RBC) [Entitic vol]Ordered By: Ion Eckert on 18-98-5467GJT (RBC) [Entitic vol]89.6 vG02-992UdtnxcpzdParkwood HospitalMonocytes Auto (Bld) [#/Vol]Ordered By: Ion Eckert on 41-25-4147Gbygfogma (Bld) [#/Vol]0.7 10*3/uL0.0-0.8[facility] HospitalMonocytes/100 WBC Auto (Bld)Ordered By: Ion Eckert on 10-28-2023 Monocytes/100 WBC (Bld)11.9 %.[facility] HospitalNeutrophils Auto (Bld) [#/Vol]Ordered By: Ion Eckert on 40-25-0845Vrxzcstkdul (Bld) [#/Vol]3.8 10*3/uL1.8-7.7FMcCullough-Hyde Memorial HospitalNeutrophils/100 WBC Auto (Bld) Ordered By: Ion Eckert on 18-93-3310Urknnnltutw/100 WBC (Bld)66.8 %.Parkwood HospitalNo Panel InformationOrdered By: Ion Eckert on 10-28-2023 Estimated GFR (CKD-EPI)> 60.0 mL/MinParkwood HospitalPharmacy Creatinine Clearance (Chem61.83Park[facility] HospitalNucleated erythrocytes [Presence] in Blood by Automated countOrdered By: Ion Eckert on 26-55-7741Wkijrldxb RBC Auto Ql (Bld)0.1 /100{WBC}0-0.5FMcCullough-Hyde Memorial HospitalPlatelet mean volume Auto (Bld) [Entitic vol]Ordered By: Ion Eckert on 15-31-0162Ymmkppsz mean volume (Bld) [Entitic vol]6.4 fL6.3-10.7 [facility] HospitalPlatelets Auto (Bld) [#/Vol]Ordered By: Ion Eckert on 84-34-2764Vjseynobu (Bld) [#/Vol]294 10*3/eX538-904EftutlgbsParkwood HospitalPotassium [Moles/volume] in Serum or PlasmaOrdered By: Ion Eckert on 23-43-6505Ctxwzbpaf [Moles/Vol]3.9 mmol/L3.5-5.1FMcCullough-Hyde Memorial HospitalRBC Auto (Bld) [#/Vol]Ordered By: Ion Eckert on 95-58-3648JGZ (Bld) [#/Vol]3.56 10*6/uL3.60-5.00[facility] Health Systemerum or plasma anion gap determinationOrdered By: Ion Eckert on 61-59-2419Nsmdd gap [Moles/Vol]9.1 mmol/L6.0-15.0[facility] Health Systemodium [Moles/volume] in Serum or PlasmaOrdered By: Ion Eckert on 86-84-3353Vyhcai [Moles/Vol]141 mmol/L792-111RwbuffvlbParkwood HospitalUrea nitrogen [Mass/volume] in Serum or PlasmaOrdered By: Ion Eckert on 48-43-2583Recx nitrogen [Mass/Vol]11 mg/dL7-25Park[facility] HospitalWBC Auto (Bld) [#/Vol]Ordered By: Ion Eckert on 33-43-9546OSR (Bld) [#/Vol]5.6 10*3/uL3.8-11.6 [facility] HospitalGlucose Glucometer (BldC) [Mass/Vol]Ordered By: Jm Trujillo on 99-47-6251Ffekllz [Mass/Vol]71 mg/dLParkwood HospitalComment on above:Random Glucose Reference Range is dependent on time and content of last meal. Glucose of more than 200 mg/dL in a nonstressed, ambulatory subject supports the diagnosis of Diabetes Mellitus.Calcium [Mass/volume] in Serum or PlasmaOrdered By: Ethel Saucedo on 59-94-6838Geqfsyt [Mass/Vol]9.3 mg/dL8.6-10.3FMcCullough-Hyde Memorial HospitalGlucose [Mass/volume] in Serum or PlasmaOrdered By: Ethel Saucedo on 18-10-1980Prmdlma [Mass/Vol]105 mg/dS67-717NwvrgmjlfParkwood HospitalComment on above:ADA recommended reference rangeRandom Glucose Reference Range is dependent on time and content of last meal. Glucose of more than 200 mg/dL in a nonstressed, ambulatory subject supports the diagnosisof Diabetes Mellitus.Magnesium [Mass/volume] in Serum or PlasmaOrdered By: Ethel Saucedo on 14-64-6809Omgigsdyq [Mass/Vol]2.0 mg/dL1.9-2.7FMcCullough-Hyde Memorial HospitalActivated partial thromboplastin time (aPTT) in platelet poor plasma by coagulation aOrdered By: Mary Al on 75-12-9344aOZS Coag (PPP) [Time]25.0 s25.1-36.5FMcCullough-Hyde Memorial HospitalComment on above:A hematocrit value greater than 55% may lead to inaccurate results in coagulation testing. Patientshaving hematocrit values >55% require a special collection tube for coagulation studies. Please c ontact the laboratory at [phone] for redraw instructions.Alanine aminotransferase [Enzymatic activity/volume] in Serum or PlasmaOrdered By: Mary Al on 68-53-7216XOB [Catalytic activity/Vol]36 U/L7-52Parkwood HospitalAlbumin [Mass/volume] in Serum or Plasma by Bromocresol green (BCG) dye binding methoOrdered By: Mary Al on 02-48-4758Ybdpmpd BCG dye [Mass/Vol]4.4 g/dL3.5-5.7FMcCullough-Hyde Memorial HospitalAlkaline phosphatase [Enzymatic activity/volume] in Serum or PlasmaOrdered By: Mary Al on 47-31-4889KVT [Catalytic activity/Vol]79 U/L65-590NhdudjzctParkwood HospitalAspartate aminotransferase [Enzymatic activity/volume] in Serum or PlasmaOrdered By: Mary Al on 17-38-4993WJG [Catalytic activity/Vol]52 U/L 13-39Parkwood HospitalAutomated erythrocytes count in urine sediment (number/area)Ordered By: Mary Al on 64-97-5855JFF Auto (Urine sed) [#/Area]0-1 [HPF]0-4FMcCullough-Hyde Memorial HospitalAutomated leukocytes count in urine sediment (number/area)Ordered By: Mary Al on 43-34-6313JVD Auto (Urine sed) [#/Area]10-19 [HPF]0-4FMcCullough-Hyde Memorial Hospital Basophils Auto (Bld) [#/Vol]Ordered By: Mary Al on 21-73-7247Aurfbepoe (Bld) [#/Vol]0.1 10*3/uL0.0-0.2FMcCullough-Hyde Memorial HospitalBasophils/100 WBC Auto (Bld)Ordered By: Mary Al on 40-44-6127Hbxdtcrsl/100 WBC (Bld)0.7 %.[facility]wood HospitalBilirubin Test strip Ql (U)Ordered By: Mary Al on 30-34-5221Zlrahxhww Ql (U)NegativeNegativeParkwood HospitalBilirubin.direct [Mass/volume] in Serum or PlasmaOrdered By: Mary Al on 08-49-0558Iweteeaky.direct [Mass/Vol]0.20 mg/dL0.03-0.18 [facility] HospitalBilirubin.total [Mass/volume] in Serum or PlasmaOrdered By: Mary Al on 97-11-8457Bmkbnolka [Mass/Vol]1.0 mg/dL 0.3-1.0Park[facility] HospitalCalcium [Mass/volume] in Serum or Plasma Ordered By: Mary Al on 91-24-7239Ostbmvu [Mass/Vol]9.9 mg/dL8.6-10.3 [facility] HospitalCarbon dioxide, total [Moles/volume] in Serum or PlasmaOrdered By: Mary Al on 10-70-7631FD2 [Moles/Vol]21.9 mmol/L 21.0-31.0[facility] HospitalChloride [Moles/volume] in Serum or PlasmaOrdered By: Mary Al on 28-91-2401Vaiexdds [Moles/Vol]100 mmol/L 98-107Parkwood HospitalColor Auto (U)Ordered By: Mary Al on 53-95-4529Xwssq (U)YellowYellowParkwood HospitalCreatine kinase [Enzymatic activity/volume] in Serum or PlasmaOrdered By: Mary Al on 17-35-8353NX [Catalytic activity/Vol]128 U/E01-616FnxegovrgParkwood HospitalCreatinine [Mass/volume] in Serum or PlasmaOrdered By: Mary Al on 20-98-3078Dspcpqqlze [Mass/Vol]0.67 mg/dL0.60-1.20[facility] HospitalEosinophils Auto (Bld) [#/Vol]Ordered By: Mary Al on 10-25-2023 Eosinophils (Bld) [#/Vol]0.3 10*3/uL0.0-0.45[facility] Eosinophils/100 WBC Auto (Bld)Ordered By: Mary Al on 10-25-2023 Eosinophils/100 WBC (Bld)2.2 %.[facility] HospitalErythrocyte distribution width Auto (RBC) [Ratio]Ordered By: Mary Al on 10-25-2023 Erythrocyte distribution width (RBC) [Ratio]15.5 %11.9-15.3FMcCullough-Hyde Memorial HospitalFibrin D-dimer [Presence] in Platelet poor plasma by Latex agglutinationOrdered By: Mary Al on 22-08-9338Xqxbtl D-dimer LA Ql (PPP) 312 ng/mL0-243Parkwood HospitalComment on above:The reference range for D-dimer [...] coagulation studies. Please contact the laboratory at [phone] for redraw instructions.Globulin Calc (S) [Mass/Vol]Ordered By: Mary Al on 67-63-6093Qykquqfc (S) [Mass/Vol]2.9 g/dLParkwood Hospital Glucose [Mass/volume] in Serum or PlasmaOrdered By: Mary Al on 10-25-2023 Glucose [Mass/Vol]132 mg/xS65-736PvoxootmhParkwood HospitalComment on above:ADA recommended reference rangeRandom Glucose Reference Range is dependent on time and content of last meal. Glucose of more than 200 mg/dL in a nonstressed, ambulatory subject supports the diagnosisof Diabetes Mellitus. Hematocrit Auto (Bld) [Volume fraction]Ordered By: Mary Al on 10-25-2023 Hematocrit (Bld) [Volume fraction]38.4 %34.0-46.4FMcCullough-Hyde Memorial HospitalHemoglobin [Mass/volume] in BloodOrdered By: Mary Al on 10-25-2023 Hemoglobin (Bld) [Mass/Vol]12.9 g/dL11.8-15.4FMcCullough-Hyde Memorial Hospital INR in Platelet poor plasma by Coagulation assayOrdered By: Mary Al on 34-98-8236HUL Coag (PPP) [Relative time]1.0 {INR}Parkwood HospitalComment on above:INR Therapeutic Range A) Pre- [...] strip (U) [Mass/Vol]Ordered By: Mary Al on 35-96-2954Qyabszf (U) [Mass/Vol]NegativeNegativeParkwood HospitalLaboratory - UrinalysisOrdered By: Mary Al on 10-25-2023 Hyaline casts LM Ql (Urine sed)None seen [LPF]0-8Parkwood HospitalLactate [Moles/volume] in Serum or PlasmaOrdered By: Mary Al on 95-29-0563Vcnlqqo [Moles/Vol]1.3 mmol/L0.5-2.2FMcCullough-Hyde Memorial Hospital Leukocytes [#/volume] corrected for nucleated erythrocytes in Blood by Automated counOrdered By: Mary Al on 90-59-1711NGV corrected for nucl RBC Auto (Bld) [#/Vol]14.4 10*3/uL3.8-11.6FMcCullough-Hyde Memorial HospitalLymphocytes Auto (Bld) [#/Vol]Ordered By: Mary Al on 43-35-9490Byumpixzxup (Bld) [#/Vol]2.2 10*3/uL1.00-4.8Parkwood HospitalLymphocytes/100 WBC Auto (Bld)Ordered By: Mary Al on 19-17-7635Ttmqjtewjsy/100 WBC (Bld)14.9 %.[facility] Auto (RBC) [Entitic mass]Ordered By: Mary Al on 69-69-7631HUW (RBC) [Entitic mass]29.3 pg24.7-34.3FUK HealthcareHC Auto (RBC) [Mass/Vol]Ordered By: Mary Al on 69-83-3346EIIZ (RBC) [Mass/Vol]33.5 g/dL32.0-35.0Park[facility] HospitalMCV Auto (RBC) [Entitic vol]Ordered By: Mary Al on 75-67-7037QAG (RBC) [Entitic vol]87.5 yS90-273YmwcgmautParkwood HospitalMonocyte distribution width [Entitic volume] in Blood by AutomatedOrdered By: Mary Al on 28-23-4142Fsrxsahv distribution width Auto (Bld) [Entitic vol]18.93 % 0.00-20.00Parkwood HospitalMonocytes Auto (Bld) [#/Vol]Ordered By: Mayr Al on 73-31-7613Rbzdmpsbw (Bld) [#/Vol]1.0 10*3/uL0.0-0.8 Parkwood HospitalMonocytes/100 WBC Auto (Bld)Ordered By: Mary Al on 73-04-4724Pjelhcosp/100 WBC (Bld)6.7 %.[facility]wood HospitalNatriuretic peptide B [Mass/Vol]Ordered By: Mary Al on 10-25-2023 Natriuretic peptide B (Bld) [Mass/Vol]42.0 pg/mL5-100Parkwood HospitalNeutrophils Auto (Bld) [#/Vol]Ordered By: Mary Al on 10-25-2023 Neutrophils (Bld) [#/Vol]10.9 10*3/uL1.8-7.7FMcCullough-Hyde Memorial Hospital Neutrophils/100 WBC Auto (Bld)Ordered By: Mary Al on 10-25-2023 Neutrophils/100 WBC (Bld)75.5 %.[facility]wood HospitalNitrite Test strip Ql (U)Ordered By: Mary Al on 94-99-9017Ftqpofm Ql (U)Negative NegativeParkwood HospitalNo Panel InformationOrdered By: Mary Al on 61-28-5504Ndjedvjbc GFR (CKD-EPI)> 60.0 mL/MinParkwood HospitalPharmacy Creatinine Clearance (Chem61.55Parkwood HospitalNucleated erythrocytes [Presence] in Blood by Automated countOrdered By: Mary Al on 74-85-1748Zragyqtov RBC Auto Ql (Bld)0.0 /100{WBC}0-0.5 [facility] HospitalPlatelet mean volume Auto (Bld) [Entitic vol] Ordered By: Mary Al on 19-93-0358Ahcitwud mean volume (Bld) [Entitic vol] 6.4 fL6.3-10.7FMcCullough-Hyde Memorial HospitalPlatelets Auto (Bld) [#/Vol] Ordered By: Mary Al on 68-83-0918Ndyyilcya (Bld) [#/Vol]397 10*3/uL 150-450[facility] HospitalPotassium [Moles/volume] in Serum or PlasmaOrdered By: aMry Al on 05-25-7288Kbsirfhpp [Moles/Vol]4.0 mmol/L 3.5-5.1FMcCullough-Hyde Memorial HospitalProtein Auto test strip (U) [Mass/Vol] Ordered By: Mary Al on 54-44-7097Ltfwqho (U) [Mass/Vol]NegativeNegative [facility] HospitalProtein [Mass/volume] in Serum or PlasmaOrdered By: Mary Al on 30-24-5482Uzshxrl [Mass/Vol]7.3 g/dL6.4-8.9[facility] HospitalProthrombin time (PT)Ordered By: Mary Al on 29-29-6688VE Coag (PPP) [Time]11.4 s9.0-12.9[facility] Comment on above:A hematocrit value greater than 55% may lead to inaccurate results in coagulation testing. Patientshaving hematocrit values >55% require a special collection tube for coagulation studies. Please contact the laboratory at [phone] for redraw instructions.RBC Auto (Bld) [#/Vol]Ordered By: Mary Al on 70-50-3951RSH (Bld) [#/Vol]4.39 10*6/uL3.60-5.00[facility] Systemerum or plasma albumin/globulin mass ratioOrdered By: Mary Al on 18-75-8866Aonhpmm/Globulin [Mass ratio]1.5 {ratio}[facility] Systemerum or plasma anion gap determinationOrdered By: Mary Al on 96-36-4701Ctdsp gap [Moles/Vol]15.1 mmol/L6.0-15.0[facility] Systemerum or plasma non-glucuronidated bilirubin measurement (mass/volume) Ordered By: Mary Al on 31-91-2147Iyfygxifx.indirect [Mass/Vol]0.8 mg/dL [facility] Systemodium [Moles/volume] in Serum or PlasmaOrdered By: Mary Al on 94-15-3897Qjulan [Moles/Vol]133 mmol/I730-908VjunjwivqParkwood HospitalComment on above:Delta: 142 on 10/24/23Specific gravity Auto test strip (U) [Rel density]Ordered By: Mary Al on 40-27-8616Sobkhrmm gravity (U) [Rel density]1.0371.001-1.030[facility] Systemquamous epithelial cells detection in urine sediment by light microscopyOrdered By: Mary Al on 58-56-4881Tradlzjdgh cells.squamous LM Ql (Urine sed)0-1 [HPF]0-2FMcCullough-Hyde Memorial HospitalTroponin I.cardiac [Mass/volume] in Serum or Plasma by Detection limit <= 0.01 ng/Ordered By: Mary Al on 27-88-4054Osieukld I.cardiac DL <= 0.01 ng/mL [Mass/Vol]4.9 pg/mL0.0-15.0[facility] HospitalUrea nitrogen [Mass/volume] in Serum or PlasmaOrdered By: Mary Al on 01-93-6093Ytzx nitrogen [Mass/Vol] 20 mg/dL7-25Parkwood HospitalUrine bacteria detection by automated methodOrdered By: Mary Al on 81-89-5311Wlhvmnkl Auto Ql (U)None seenNone SeenParkwood HospitalUrine clarity by refractometry automatedOrdered By: Mary Al on 75-31-4152Rwnsbbq Refractometry automated (U)ClearClearFMcCullough-Hyde Memorial HospitalUrine culture routineOrdered By: Mary Al on 70-57-0641Pqzwokys identified Cx Nom (U)2 DaysParkwood HospitalUrine glucose measurement by automated test strip (mass/volume)Ordered By: Mary Al on 12-95-0862Wmafxpz Auto test strip (U) [Mass/Vol]Normal mg/dLNormalParkwood HospitalUrine hemoglobin detection by automated test stripOrdered By: Mary Al on 10-25-2023 Hemoglobin Auto test strip Ql (U)TraceNegativeParkwood Hospital Urine leukocyte esterase detection by automated test stripOrdered By: Mary Al on 15-40-7383Mggendpnv esterase Auto test strip Ql (U)2+Negative [facility] HospitalUrobilinogen Auto test strip (U) [Mass/Vol] Ordered By: Mary Al on 92-37-0490Wmvznazeujdt (U) [Mass/Vol]Normal mg/dL NormalParkwood HospitalWBC Auto (Bld) [#/Vol]Ordered By: Mary Al on 78-10-8059GGE (Bld) [#/Vol]14.4 10*3/uL3.8-11.6FMcCullough-Hyde Memorial HospitalpH Auto test strip (U)Ordered By: Mary Al on 50-77-1561rJ (U)5.5 [pH]5.0-9.0[facility] HospitalAlanine aminotransferase [Enzymatic activity/volume] in Serum or PlasmaOrdered By: Charles Bazzi on 69-12-4101WIQ [Catalytic activity/Vol]12 U/L7-52Park[facility] HospitalAlbumin [Mass/volume] in Serum or Plasma by Bromocresol green (BCG) dye binding methoOrdered By: Charles Bazzi on 04-53-7145Dgykiye BCG dye [Mass/Vol]4.0 g/dL3.5-5.7FMcCullough-Hyde Memorial HospitalAlkaline phosphatase [Enzymatic activity/volume] in Serum or PlasmaOrdered By: Charles Bazzi on 33-55-3590HTU [Catalytic activity/Vol]68 U/L46-148IylzgopmgParkwood HospitalAspartate aminotransferase [Enzymatic activity/volume] in Serum or PlasmaOrdered By: Charles Bazzi on 11-35-5048XRF [Catalytic activity/Vol]12 U/K30-05PlqpmryauParkwood HospitalBasophils Auto (Bld) [#/Vol]Ordered By: Charles Bazzi on 10-24-2023 Basophils (Bld) [#/Vol]0.0 10*3/uL0.0-0.2FMcCullough-Hyde Memorial Hospital Basophils/100 WBC Auto (Bld)Ordered By: Charles Bazzi on 81-93-5575Xqbptyphn/100 WBC (Bld)0.9 %.[facility] HospitalBilirubin.total [Mass/volume] in Serum or PlasmaOrdered By: Charles Bazzi on 63-05-0772Htekvcmqu [Mass/Vol]0.5 mg/dL0.3-1.0[facility] HospitalCalcium [Mass/volume] in Serum or PlasmaOrdered By: Charles Bazzi on 67-51-7848Yugimmg [Mass/Vol]9.5 mg/dL8.6-10.3 [facility] HospitalCarbon dioxide, total [Moles/volume] in Serum or PlasmaOrdered By: Charles Bazzi on 49-02-1666OH8 [Moles/Vol]31.6 mmol/L21.0-31.0 [facility] HospitalChloride [Moles/volume] in Serum or Plasma Ordered By: Charles Bazzi on 04-87-5651Blzljoxt [Moles/Vol]105 mmol/L98-107 [facility] HospitalCholesterol [Mass/volume] in Serum or Plasma Ordered By: Charles Bazzi on 44-90-5194Zkfqwldacch [Mass/Vol]187 mg/jY123-832 [facility] HospitalComment on above:Chol less than 200 mg/dl low riskChol 201-239 mg/dl borderline riskChol 240 mg/dl and greater high risk Cholesterol in LDL Calc [Mass/Vol]Ordered By: Charles Bazzi on 10-24-2023 Cholesterol in LDL [Mass/Vol]95 mg/dL0-100[facility] Comment on above:LDL ATP III CLASSIFICATIONLDL less than 100 mg/dL OptimalLDL 100-129 mg/dL Near or above pprmcxoCBT697-598 mg/dL Borderline highLDL 160-189 mg/dL HighLDL greater than 189 mg/dL Very highCholesterol in VLDL Calc [Mass/Vol]Ordered By: Charles Bazzi on 46-63-1237Rhbdifxodgk in VLDL [Mass/Vol]38 mg/dLParkwood HospitalCreatinine [Mass/volume] in Serum or PlasmaOrdered By: Charles Bazzi on 41-06-5366Dksjgoubzu [Mass/Vol]0.71 mg/dL 0.60-1.20[facility] HospitalEosinophils Auto (Bld) [#/Vol]Ordered By: Charles Bazzi on 80-98-8525Prbmikvnuyr (Bld) [#/Vol]0.5 10*3/uL0.0-0.45 [facility] HospitalEosinophils/100 WBC Auto (Bld)Ordered By: Charles Bazzi on 92-23-6736Lfpnuukafoz/100 WBC (Bld)9.5 %.[facility] HospitalErythrocyte distribution width Auto (RBC) [Ratio]Ordered By: Charles Bazzi on 08-51-7602Dydghmovfbl distribution width (RBC) [Ratio]15.4 %11.9-15.3FMcCullough-Hyde Memorial HospitalGlobulin Calc (S) [Mass/Vol]Ordered By: Charles Bazzi on 30-95-4195Agaefxqd (S) [Mass/Vol]2.2 g/dLParkwood Hospital Glucose [Mass/volume] in Serum or PlasmaOrdered By: Charles Bazzi on 10-24-2023 Glucose [Mass/Vol]77 mg/zF52-564YmnddzqahParkwood HospitalComment on above:ADA recommended reference rangeRandom Glucose Reference Range is dependent on time and content of last meal. Glucose of more than 200 mg/dL in a nonstressed, ambulatory subject supports the diagnosisof Diabetes Mellitus. Glucose mean value [Mass/volume] in Blood Estimated from glycated hemoglobin Ordered By: Charles Bazzi on 89-23-2045Dkmsqyt glucose Estimated from glycated hemoglobin (Bld) [Mass/Vol]111 mg/dLParkwood HospitalHematocrit Auto (Bld) [Volume fraction]Ordered By: Charles Bazzi on 43-85-6893Kktftvzasi (Bld) [Volume fraction]34.2 %34.0-46.4FMcCullough-Hyde Memorial HospitalHemoglobin A1c percentageOrdered By: Charles Bazzi on 85-65-9525ImJ0t (Bld) [Mass fraction]5.5 % 4.3-5.6FMcCullough-Hyde Memorial HospitalComment on above:Increased risk for diabetes: 5.7 - 6.4diabetes: >6.4glycemic control for adults with diabetes: &l t;7.0Hemoglobin [Mass/volume] in BloodOrdered By: Charles Bazzi on 10-24-2023 Hemoglobin (Bld) [Mass/Vol]11.3 g/dL11.8-15.4FMcCullough-Hyde Memorial Hospital Leukocytes [#/volume] corrected for nucleated erythrocytes in Blood by Automated counOrdered By: Charles Bazzi on 79-29-1914ROW corrected for nucl RBC Auto (Bld) [#/Vol]4.9 10*3/uL3.8-11.6FMcCullough-Hyde Memorial HospitalLymphocytes Auto (Bld) [#/Vol]Ordered By: Charles Bazzi on 83-03-1241Dmvvwbmnplv (Bld) [#/Vol]1.0 10*3/uL1.00-4.8[facility] HospitalLymphocytes/100 WBC Auto (Bld) Ordered By: Charles Bazzi on 59-82-7685Czxqreqgfsg/100 WBC (Bld)20.9 %.[facility] CenterH Auto (RBC) [Entitic mass]Ordered By: Charles Bazzi on 15-23-6391OVU (RBC) [Entitic mass]29.7 pg24.7-34.3FMcCullough-Hyde Memorial HospitalMCHC Auto (RBC) [Mass/Vol]Ordered By: Charles Bazzi on 11-10-6456WTCL (RBC) [Mass/Vol]33.1 g/dL32.0-35.0[facility] HospitalMCV Auto (RBC) [Entitic vol]Ordered By: Charles Bazzi on 53-42-2054YAB (RBC) [Entitic vol]89.9 fL 80-100Park[facility] HospitalMonocytes Auto (Bld) [#/Vol]Ordered By: Charles Bazzi on 37-68-6976Iflzxwolp (Bld) [#/Vol]0.5 10*3/uL0.0-0.8[facility] HospitalMonocytes/100 WBC Auto (Bld)Ordered By: Charles Bazzi on 17-91-6590Hqpxpxmaf/100 WBC (Bld)10.5 %.[facility] Neutrophils Auto (Bld) [#/Vol]Ordered By: Charles Bazzi on 78-77-8349Lxbqzawznnl (Bld) [#/Vol]2.9 10*3/uL1.8-7.7FMcCullough-Hyde Memorial HospitalNeutrophils/100 WBC Auto (Bld)Ordered By: Charles Bazzi on 84-61-3103Plbdmhngxic/100 WBC (Bld)58.2 %.[facility] HospitalNo Panel InformationOrdered By: Charles Bazzi on 05-90-4553Teytyubqy GFR (CKD-EPI)> 60.0 mL/MinParkwood Hospital Pharmacy Creatinine Clearance (ChemN/AFMcCullough-Hyde Memorial HospitalNucleated erythrocytes [Presence] in Blood by Automated countOrdered By: Charles Bazzi on 91-95-0348Znhmbiqrh RBC Auto Ql (Bld)0.1 /100{WBC}0-0.5FMcCullough-Hyde Memorial HospitalPlatelet mean volume Auto (Bld) [Entitic vol]Ordered By: Charles Bazzi on 22-29-7833Bknrlnwb mean volume (Bld) [Entitic vol]6.6 fL6.3-10.7 [facility] HospitalPlatelets Auto (Bld) [#/Vol]Ordered By: Charles Bazzi on 34-83-8444Lpxsmmxwl (Bld) [#/Vol]328 10*3/mZ229-245SfojfejffParkwood HospitalPotassium [Moles/volume] in Serum or PlasmaOrdered By: Charles Bazzi on 54-44-0744Mxrtehhah [Moles/Vol]4.3 mmol/L3.5-5.1FMcCullough-Hyde Memorial HospitalProtein [Mass/volume] in Serum or PlasmaOrdered By: Charles Bazzi on 20-59-2870Erupjhz [Mass/Vol]6.2 g/dL6.4-8.9[facility] HospitalRBC Auto (Bld) [#/Vol]Ordered By: Charles Bazzi on 45-43-6522CHB (Bld) [#/Vol]3.80 10*6/uL3.60-5.00[facility] Systemerum or plasma albumin/globulin mass ratioOrdered By: Charles Bazzi on 72-34-4097Cstjbue/Globulin [Mass ratio]1.8 {ratio}[facility] Systemerum or plasma anion gap determinationOrdered By: Charles Bazzi on 15-12-3585Dcnrv gap [Moles/Vol]9.7 mmol/L6.0-15.0[facility] Systemerum or plasma high density lipoprotein (HDL) cholesterol measurementOrdered By: Charles Bazzi on 10-24-2023 Cholesterol in HDL [Mass/Vol]54 mg/jK19-61OwvrypyxwParkwood Hospital Comment on above:HDL CHOL ATP-III CLASSIFICATION Cardiovascular RiskHDL > or equal to 60 mg/dL LOWHDL < 40 mg/dL HIGHSerum or plasma total cholesterol/high density lipoprotein (HDL) cholesterol mass ratOrdered By: Charles Bazzi on 98-03-8699Atzknvueavd.total/Cholesterol in HDL [Mass ratio]3.5 {ratio}<5.0 [facility] Systemodium [Moles/volume] in Serum or PlasmaOrdered By: Charles Bazzi on 45-06-2118Ssbrvz [Moles/Vol]142 mmol/Y617-374AmyipeclpParkwood HospitalThyrotropin [Units/volume] in Serum or PlasmaOrdered By: Charles Bazzi on 78-35-9874GIP Qn2.33 m[IU]/L0.45-5.33[facility] HospitalTriglyceride [Mass/volume] in Serum or PlasmaOrdered By: Charles Bazzi on 90-25-5519Hvlyuyorepzf [Mass/Vol]191 mg/dL0-149[facility] Comment on above:TRIG ATP III CLASSIFICATIONTRIG less than 150 mg/dL NormalTRIG 150-199 mg/dL Borderline highTRIG 200-500 mg/dL High TRIG greater than 500 mg/dL Very highStandard traceable to the Center for Disease Conrtrol and Prevention (CDC) test method.Urea nitrogen [Mass/volume] in Serum or PlasmaOrdered By: Charles Bazzi on 60-09-7727Srxp nitrogen [Mass/Vol]21 mg/dL7-25[facility] HospitalWBC Auto (Bld) [#/Vol]Ordered By: Charles Bazzi on 68-40-7202MCU (Bld) [#/Vol]4.9 10*3/uL3.8-11.6FMcCullough-Hyde Memorial HospitalBasophils Auto (Bld) [#/Vol]on 52-73-4050Cdfztrxyv (Bld) [#/Vol]0.04 10*3/uL<0.11[facility] HospitalBasophils/100 WBC Auto (Bld)on 02-05-5397Fjvdnuskg/100 WBC (Bld)0.5 %[facility] HospitalBlood manual differential comment interpretation narrativeon 26-35-6423Bbocxc differential comment Ankush (Bld) [Interp]AutoParkwood HospitalCBC W Auto Differential panel (Bld) on 00-59-7424Fjxqjbqpa (Bld) [#/Vol]0.04 10*3/uL<0.11 k/uLTogus Va Medical Center Basophils/100 WBC (Bld)0.5 %[facility] CenterDifferential cell count method Nom (Bld)AutoCleveland ClinicEosinophils (Bld) [#/Vol]0.52 10*3/uLHigh<0.46 k/uL [facility] CenterEosinophils/100 WBC (Bld)7.1 %[facility] CenterErythrocyte distribution width (RBC) [Ratio]15.2 %High11.5 - 15.0 %[facility] Hematocrit (Bld) [Volume fraction]35.1 %Low36.0 - 46.0 %[facility] Hemoglobin (Bld) [Mass/Vol]11.7 g/dL11.5 - 15.5 g/dLTogus Va Medical CenterImmature granulocytes (Bld) [#/Vol]0.04 10*3/uL<0.10 k/uLTogus Va Medical CenterImmature granulocytes/100 WBC (Bld)0.5 %[facility] CenterLymphocytes (Bld) [#/Vol]0.62 10*3/uLLow1.00 - 4.00 k/uLTogus Va Medical CenterLymphocytes/100 WBC (Bld)8.5 % [facility] CenterMCH (RBC) [Entitic mass]29.8 pg26.0 - 34.0 pgCPike Community Hospital MCHC (RBC) [Mass/Vol]33.3 g/dL30.5 - 36.0 g/dLTogus Va Medical CenterMCV (RBC) [Entitic vol]89.5 fL80.0 - 100.0 fLCleveland ClinicMonocytes (Bld) [#/Vol]0.62 10*3/uL <0.87 k/uLTogus Va Medical CenterMonocytes/100 WBC (Bld)8.5 %[facility] Neutrophils (Bld) [#/Vol]5.49 10*3/uL1.45 - 7.50 k/uLTogus Va Medical Center Neutrophils/100 WBC (Bld)74.9 %[facility] CenterNucleated RBC (Bld) [#/Vol]<0.01 k/uLTogus Va Medical CenterNucleated RBC/100 WBC (Bld) [Ratio]0.0 /100 WBCTogus Va Medical CenterPlatelet mean volume (Bld) [Entitic vol]8.1 fLLow9.0 - 12.7 fLClevelnovant health matthews medical [facility] ClinicPlatelets (Bld) [#/Vol]274 10*3/uL150 - 400 k/uLBrooklyn ClinicRBC (Bld) [#/Vol]3.92 10*6/uL3.90 - 5.20 m/uLTogus Va Medical CenterWBC (Bld) [#/Vol]7.33 10*3/uL 3.70 - 11.00 k/uLTogus Va Medical CenterComprehensive metabolic 2000 panelon 10-10-2023 Albumin [Mass/Vol]4.3 g/dL3.9 - 4.9 g/dLBrooklyn ClinicALP [Catalytic activity/Vol]103 U/L34 - 123 U/LCleveland ClinicALT [Catalytic activity/Vol]15 U/L7 - 38 U/LCleveland ClinicAnion gap [Moles/Vol]12 mmol/L9 - 18 mmol/L [facility] CenterAST [Catalytic activity/Vol]13 U/L13 - 35 U/LCleveland [facility] Bilirubin [Mass/Vol]0.2 mg/dL0.2 - 1.3 mg/dLBrooklyn ClinicCalcium [Mass/Vol] 9.3 mg/dL8.5 - 10.2 mg/dLTogus Va Medical CenterChloride [Moles/Vol]114 mmol/LHigh97 - 105 mmol/LCleveland ClinicCO2 [Moles/Vol]22 mmol/L22 - 30 mmol/LCleveland [facility] Creatinine [Mass/Vol]0.70 mg/dL0.58 - 0.96 mg/dLTogus Va Medical CenterEstimated Glomerular Filtration Rate93 mL/min/1.73m>=60 mL/min/1.73mCPike Community Hospital Glucose [Mass/Vol]114 mg/kQBovs93 - 99 mg/dLTogus Va Medical CenterPotassium [Moles/Vol]4.2 mmol/L3.7 - 5.1 mmol/LCPike Community HospitalProtein [Mass/Vol]6.6 g/dL 6.3 - 8.0 g/dLHenry County Hospitalodium [Moles/Vol]148 mmol/NPhsm919 - 144 mmol/L [facility] CenterUrea nitrogen [Mass/Vol]22 mg/dLHigh7 - 21 mg/dLTogus Va Medical Center Eosinophils/100 WBC Auto (Bld)on 68-30-9444Hpzniveapom/100 WBC (Bld)7.1 % [facility] HospitalErythrocyte distribution width Auto (RBC) [Ratio]on 26-76-7945Hknnswolyfa distribution width (RBC) [Ratio]15.2 %11.5-15.0 [facility] HospitalHematocrit Auto (Bld) [Volume fraction]on 60-38-5473Ssqzumugse (Bld) [Volume fraction]35.1 %36.0-46.0[facility] HospitalHemoglobin [Mass/volume] in Bloodon 98-97-9249Gorlirrcka (Bld) [Mass/Vol]11.7 g/dL11.5-15.5FMcCullough-Hyde Memorial HospitalLaboratory - Chemistry and Chemistry - challengeon 51-70-1056Vypbsrf [Mass/Vol]4.3 g/dL 3.9-4.9[facility] HospitalALP [Catalytic activity/Vol]103 U/L 34-123Parkwood HospitalALT [Catalytic activity/Vol]15 U/L7-38 [facility] HospitalAST [Catalytic activity/Vol]13 U/L13-35 [facility] HospitalBilirubin [Mass/Vol]0.2 mg/dL0.2-1.3FMcCullough-Hyde Memorial HospitalCalcium [Mass/Vol]9.3 mg/dL8.5-10.2FMcCullough-Hyde Memorial HospitalChloride [Moles/Vol]114 mmol/E16-364HpqwcigzcParkwood HospitalCO2 [Moles/Vol]22 mmol/I56-05AfkrmsmgmParkwood HospitalCreatinine [Mass/Vol]0.70 mg/dL0.58-0.96[facility] HospitalGlucose [Mass/Vol] 114 mg/vB18-73VqbklhvdaParkwood HospitalComment on above:The [place] Diabetes Association (ADA) provides guidance for cutoff [...] diabetes.Reference: [employer] in Diabetes 2016, [place] [employer]. Diabetes Care. 2016.39(Suppl 1). Potassium [Moles/Vol]4.2 mmol/L3.7-5.1FOhioHealth Riverside Methodist Hospitalodium [Moles/Vol]148 mmol/T310-393SkgomkolcParkwood HospitalUrea nitrogen [Mass/Vol]22 mg/dL7-21[facility] HospitalLaboratory - Hematology and Cell countson 54-58-6395Jozscowguxe (Bld) [#/Vol]0.52 10*3/uL<0.46[facility] HospitalImmature granulocytes (Bld) [#/Vol]0.04 10*3/uL<0.10 [facility] HospitalImmature granulocytes/100 WBC (Bld)0.5 % [facility] HospitalLeukocytes [#/volume] corrected for nucleated erythrocytes in Blood by Automated counon 32-16-1373PBP corrected for nucl RBC Auto (Bld) [#/Vol]7.33 k/uL3.70-11.00[facility] Lymphocytes Auto (Bld) [#/Vol]on 62-00-5762Ezdrzundvie (Bld) [#/Vol]0.62 10*3/uL 1.00-4.00[facility] HospitalLymphocytes/100 WBC Auto (Bld)on 31-99-1981Uctbwgcyelw/100 WBC (Bld)8.5 %[facility] CenterH Auto (RBC) [Entitic mass]on 31-30-5162IVP (RBC) [Entitic mass]29.8 pg26.0-34.0 [facility] HospitalMCHC Auto (RBC) [Mass/Vol]on 94-75-2260RYRW (RBC) [Mass/Vol]33.3 g/dL30.5-36.0[facility] HospitalMCV Auto (RBC) [Entitic vol]on 47-02-5666OSQ (RBC) [Entitic vol]89.5 fL80.0-100.0 [facility] HospitalMonocytes Auto (Bld) [#/Vol]on 10-10-2023 Monocytes (Bld) [#/Vol]0.62 10*3/uL<0.87[facility] Monocytes/100 WBC Auto (Bld)on 64-85-8494Xdzemxjhx/100 WBC (Bld)8.5 %[facility] HospitalNeutrophils Auto (Bld) [#/Vol]on 13-55-5453Rfgiloddccv (Bld) [#/Vol]5.49 10*3/uL1.45-7.50[facility] Neutrophils/100 WBC Auto (Bld)on 43-30-2800Gpiqqexniqi/100 WBC (Bld)74.9 % [facility] HospitalNo Panel Informationon 70-31-2273Yshuwkjps GFR (CKD-EPI)93 mL/min/1.73m???>=60[facility] HospitalComment on above:Estimated Glomerular Filtration Rate (eGFR) [...] reflect actual GFR.Nucleated RBC Auto (Bld) [#/Vol]on 01-23-3091Izpvxkkpr RBC (Bld) [#/Vol]10*3/uL<0.01[facility] HospitalNucleated erythrocytes [Presence] in Blood by Automated counton 83-61-3094Fblmsnyua RBC Auto Ql (Bld)0.0 /100{WBC}[facility] HospitalPlatelet mean volume Auto (Bld) [Entitic vol]on 54-78-8016Fvpigiym mean volume (Bld) [Entitic vol]8.1 fL9.0-12.7FMcCullough-Hyde Memorial Hospital Platelets Auto (Bld) [#/Vol]on 39-93-2425Hjtbhwbkf (Bld) [#/Vol]274 10*3/uL 150-400Park[facility] HospitalProtein [Mass/volume] in Serum or Plasma on 43-34-3790Mctqsig [Mass/Vol]6.6 g/dL6.3-8.0[facility] RBC Auto (Bld) [#/Vol]on 70-34-6091HMY (Bld) [#/Vol]3.92 10*6/uL3.90-5.20 [facility] Systemerum or plasma anion gap determinationon 96-78-0576Hufrx gap [Moles/Vol]12 mmol/L9-18FMcCullough-Hyde Memorial Hospital Calcium [Mass/volume] in Serum or PlasmaOrdered By: Miguel Ángel Delgadillo on 10-01-2023 Calcium [Mass/Vol]8.7 mg/dL8.6-10.3FMcCullough-Hyde Memorial HospitalCarbon dioxide, total [Moles/volume] in Serum or PlasmaOrdered By: Miguel Ángel Wassouf on 66-96-2565NX8 [Moles/Vol]29.6 mmol/L21.0-31.0[facility] Chloride [Moles/volume] in Serum or PlasmaOrdered By: Miguel Ángel Wassouf on 53-18-5127Hyrqttqp [Moles/Vol]108 mmol/Y12-844DdgfheqhfParkwood Hospital Creatinine [Mass/volume] in Serum or PlasmaOrdered By: Miguel Ángel Wassouf on 10-74-9390Cyqipwotci [Mass/Vol]0.66 mg/dL0.60-1.20[facility] HospitalErythrocyte distribution width Auto (RBC) [Ratio]Ordered By: Miguel Ángel Wassouf on 22-22-4541Khvfgihndfd distribution width (RBC) [Ratio]16.1 %11.9-15.3 [facility] HospitalGlucose [Mass/volume] in Serum or PlasmaOrdered By: Miguel Ángel Delgadillo on 71-77-1911Vdzghds [Mass/Vol]93 mg/wZ83-458LmjouldizParkwood HospitalComment on above:ADA recommended reference rangeRandom Glucose Reference Range is dependent on time and content of last meal. Glucose of more than 200 mg/dL in a nonstressed, ambulatory subject supports the diagnosisof Diabetes Mellitus.Hematocrit Auto (Bld) [Volume fraction]Ordered By: Miguel Ángel Delgadillo on 21-34-0073Ncygwbanmz (Bld) [Volume fraction]30.5 %34.0-46.4 [facility] HospitalHemoglobin [Mass/volume] in BloodOrdered By: Miguel Ángel Delgadillo on 61-56-3825Ufnbzgcqnu (Bld) [Mass/Vol]10.3 g/dL11.8-15.4 [facility] HospitalLeukocytes [#/volume] corrected for nucleated erythrocytes in Blood by Automated counOrdered By: Miguel Ángel Delgadillo on 10-01-2023 WBC corrected for nucl RBC Auto (Bld) [#/Vol]4.9 10*3/uL3.8-11.6FSelect Medical Specialty Hospital - [facility] Auto (RBC) [Entitic mass]Ordered By: Miguel Ángel Delgadillo on 22-31-4296MYD (RBC) [Entitic mass]29.8 pg24.7-34.3FUK HealthcareHC Auto (RBC) [Mass/Vol]Ordered By: Miguel Ángel Delgadillo on 39-28-1494HZHB (RBC) [Mass/Vol]33.9 g/dL32.0-35.0[facility] HospitalMCV Auto (RBC) [Entitic vol]Ordered By: Miguel Ángel Delgadillo on 62-50-0694BQF (RBC) [Entitic vol]87.8 sU99-164WqvanjtasParkwood HospitalNo Panel InformationOrdered By: Miguel Ángel Delgadillo on 86-54-4633Lvtsyiums GFR (CKD-EPI)> 60.0 mL/MinParkwood HospitalPharmacy Creatinine Clearance (Chem61.17[facility] HospitalPlatelet mean volume Auto (Bld) [Entitic vol]Ordered By: Miguel Ángel Karenkunal on 47-46-2446Dmeijzgy mean volume (Bld) [Entitic vol]6.8 fL 6.3-10.7FMcCullough-Hyde Memorial HospitalPlatelets Auto (Bld) [#/Vol]Ordered By: Miguel Ángel Delgadillo on 09-48-7609Hsftucabq (Bld) [#/Vol]257 10*3/oH904-339QmyhflixlParkwood HospitalPotassium [Moles/volume] in Serum or PlasmaOrdered By: Miguel Ángel Delgadillo on 46-74-7872Zjxsydvea [Moles/Vol]4.1 mmol/L3.5-5.1FMcCullough-Hyde Memorial HospitalRBC Auto (Bld) [#/Vol]Ordered By: Miguel Ángel Delgadillo on 05-96-9039TUZ (Bld) [#/Vol]3.47 10*6/uL3.60-5.00[facility] Systemerum or plasma anion gap determinationOrdered By: Miguel Ángel Delgadillo on 78-97-1685Hkxnm gap [Moles/Vol]8.5 mmol/L6.0-15.0[facility] Systemodium [Moles/volume] in Serum or PlasmaOrdered By: Miguel Ángel Delgadillo on 14-38-7946Detufa [Moles/Vol]142 mmol/R592-105JmzjekphpParkwood Hospital Urea nitrogen [Mass/volume] in Serum or PlasmaOrdered By: Miguel Ángel Delgadillo on 52-79-0058Jahi nitrogen [Mass/Vol]10 mg/dL7-25[facility] Alanine aminotransferase [Enzymatic activity/volume] in Serum or PlasmaOrdered By: Patrice Springer on 87-98-8616KLQ [Catalytic activity/Vol]15 U/L7-52 [facility] HospitalAlbumin [Mass/volume] in Serum or Plasma by Bromocresol green (BCG) dye binding methoOrdered By: Patrice Springer on 99-30-4805Psbpaph BCG dye [Mass/Vol]4.1 g/dL3.5-5.7FMcCullough-Hyde Memorial HospitalAlkaline phosphatase [Enzymatic activity/volume] in Serum or PlasmaOrdered By: Patrice Springer on 22-63-5453BLE [Catalytic activity/Vol]68 U/L34-104 [facility] HospitalAspartate aminotransferase [Enzymatic activity/volume] in Serum or PlasmaOrdered By: Patrice Springer on 73-90-2845INC [Catalytic activity/Vol]19 U/I26-02SqwaitultParkwood HospitalBasophils Auto (Bld) [#/Vol]Ordered By: Patrice Springer on 96-41-4728Iksubatri (Bld) [#/Vol]0.1 10*3/uL0.0-0.2FMcCullough-Hyde Memorial HospitalBasophils/100 WBC Auto (Bld)Ordered By: Patrice Springer on 17-29-0460Jmwejjkjy/100 WBC (Bld)1.2 %. [facility] HospitalBilirubin.direct [Mass/volume] in Serum or PlasmaOrdered By: Patrice Springer on 10-62-9387Wxsxzdxfg.direct [Mass/Vol]0.10 mg/dL0.03-0.18FMcCullough-Hyde Memorial HospitalBilirubin.total [Mass/volume] in Serum or PlasmaOrdered By: Patrice Springer on 99-48-4980Gklhuryiv [Mass/Vol]0.5 mg/dL0.3-1.0[facility] HospitalCalcium [Mass/volume] in Serum or PlasmaOrdered By: Patrice Springer on 29-63-5116Ezhwiqr [Mass/Vol]9.8 mg/dL 8.6-10.3FMcCullough-Hyde Memorial HospitalCarbon dioxide, total [Moles/volume] in Serum or PlasmaOrdered By: Patrice Springer on 92-46-7873QH6 [Moles/Vol]25.6 mmol/L21.0-31.0[facility] HospitalChloride [Moles/volume] in Serum or PlasmaOrdered By: Patrice Springer on 69-78-1012Zvoajvmy [Moles/Vol]105 mmol/A13-931JpbothknwParkwood HospitalCreatinine [Mass/volume] in Serum or PlasmaOrdered By: Patrice Springer on 16-52-8518Vhavsojokv [Mass/Vol]0.72 mg/dL0.60-1.20[facility] HospitalEosinophils Auto (Bld) [#/Vol] Ordered By: Patrice Springer on 83-95-3597Ygugkaqangb (Bld) [#/Vol]0.7 10*3/uL 0.0-0.45[facility] HospitalEosinophils/100 WBC Auto (Bld)Ordered By: Patrice Springer on 36-53-0723Lphrlobkfyz/100 WBC (Bld)7.3 %.[facility] HospitalErythrocyte distribution width Auto (RBC) [Ratio]Ordered By: Patrice Springer on 32-71-2753Yesdiupqlsp distribution width (RBC) [Ratio] 16.4 %11.9-15.3FMcCullough-Hyde Memorial HospitalGlobulin Calc (S) [Mass/Vol] Ordered By: Patrice Springer on 02-24-8892Ogzqpgdo (S) [Mass/Vol]2.6 g/dL [facility] HospitalGlucose [Mass/volume] in Serum or PlasmaOrdered By: Patrice Springer on 18-23-7177Bqaxtwb [Mass/Vol]111 mg/hT14-053UdmarrhxtParkwood HospitalComment on above:ADA recommended reference rangeRandom Glucose Reference Range is dependent on time and content of last meal. Glucose of more than 200 mg/dL in a nonstressed, ambulatory subject supports the diagnosisof Diabetes Mellitus.Hematocrit Auto (Bld) [Volume fraction]Ordered By: Patrice Springer on 99-51-3079Uhmmwuqqgk (Bld) [Volume fraction]38.1 %34.0-46.4 [facility] HospitalHemoglobin [Mass/volume] in BloodOrdered By: Patrice Springer on 30-46-8567Veemgayfmp (Bld) [Mass/Vol]12.7 g/dL11.8-15.4 [facility] HospitalLeukocytes [#/volume] corrected for nucleated erythrocytes in Blood by Automated counOrdered By: Patrice Springer on 57-71-2640WPH corrected for nucl RBC Auto (Bld) [#/Vol]9.5 10*3/uL3.8-11.6 [facility] HospitalLipase [Enzymatic activity/volume] in Serum or PlasmaOrdered By: Patrice Springer on 83-85-1998Cwpslm [Catalytic activity/Vol] 5.0 U/L11.0-82.0[facility] HospitalLymphocytes Auto (Bld) [#/Vol] Ordered By: Patrice Springer on 80-85-9496Iduiheqlktb (Bld) [#/Vol]1.1 10*3/uL 1.00-4.8[facility] HospitalLymphocytes/100 WBC Auto (Bld)Ordered By: Patrice Springer on 57-17-1074Nzuvwqnpttf/100 WBC (Bld)12.0 %.[facility] Auto (RBC) [Entitic mass]Ordered By: Patrice Springer on 20-40-9258ACH (RBC) [Entitic mass]29.2 pg24.7-34.3FMcCullough-Hyde Memorial HospitalMCHC Auto (RBC) [Mass/Vol]Ordered By: Patrice Springer on 63-48-2067HPXV (RBC) [Mass/Vol]33.3 g/dL32.0-35.0[facility] HospitalMCV Auto (RBC) [Entitic vol]Ordered By: Patrice Springer on 66-83-0295ICQ (RBC) [Entitic vol]87.7 aZ57-691MqbjjwcjrParkwood HospitalMonocyte distribution width [Entitic volume] in Blood by AutomatedOrdered By: Patrice Springer on 09-30-2023 Monocyte distribution width Auto (Bld) [Entitic vol]15.40 %0.00-20.00Parkwood HospitalMonocytes Auto (Bld) [#/Vol]Ordered By: Patrice Springer on 05-40-8334Xrkhrxweo (Bld) [#/Vol]0.8 10*3/uL0.0-0.8Park[facility] HospitalMonocytes/100 WBC Auto (Bld)Ordered By: Patrice Springer on 09-30-2023 Monocytes/100 WBC (Bld)8.0 %.[facility] HospitalNeutrophils Auto (Bld) [#/Vol]Ordered By: Patrice Springer on 13-99-0178Hicpjskklva (Bld) [#/Vol] 6.8 10*3/uL1.8-7.7FMcCullough-Hyde Memorial HospitalNeutrophils/100 WBC Auto (Bld)Ordered By: Patrice Springer on 68-87-9284Ihzgieyvegt/100 WBC (Bld)71.5 %. Park[facility] HospitalNo Panel InformationOrdered By: Patrice Springer on 46-83-4555Huzwlnqxv GFR (CKD-EPI)> 60.0 mL/MinParkwood HospitalPharmacy Creatinine Clearance (Chem56.50Parkwood HospitalNucleated erythrocytes [Presence] in Blood by Automated countOrdered By: Patrice Springer on 11-02-1405Qdrcwbngb RBC Auto Ql (Bld)0.1 /100{WBC}0-0.5 [facility] HospitalPlatelet mean volume Auto (Bld) [Entitic vol] Ordered By: Patrice Springer on 02-68-5945Rdhiyvoa mean volume (Bld) [Entitic vol]6.6 fL6.3-10.7FMcCullough-Hyde Memorial HospitalPlatelets Auto (Bld) [#/Vol] Ordered By: Patrice Springer on 83-35-7452Rujhcltnw (Bld) [#/Vol]333 10*3/uL 150-450Park[facility] HospitalPotassium [Moles/volume] in Serum or PlasmaOrdered By: Patrice Springer on 71-59-2204Xtrxibiyd [Moles/Vol]3.9 mmol/L 3.5-5.1FMcCullough-Hyde Memorial HospitalProtein [Mass/volume] in Serum or Plasma Ordered By: Patrice Springer on 16-82-4049Ubfzwye [Mass/Vol]6.7 g/dL6.4-8.9 [facility] HospitalRBC Auto (Bld) [#/Vol]Ordered By: Patrice Springer on 58-31-3463WON (Bld) [#/Vol]4.35 10*6/uL3.60-5.00[facility] Systemerum or plasma albumin/globulin mass ratioOrdered By: Patrice Springer on 29-78-5187Lvuwvnn/Globulin [Mass ratio]1.6 {ratio}[facility] Systemerum or plasma anion gap determinationOrdered By: Patrice Springer on 88-41-0454Uqjsu gap [Moles/Vol]12.3 mmol/L6.0-15.0[facility] Systemerum or plasma non-glucuronidated bilirubin measurement (mass/volume)Ordered By: Patrice Springer on 84-18-9985Gmcuuhyfl.indirect [Mass/Vol]0.4 mg/dLMemorial Health Systemodium [Moles/volume] in Serum or PlasmaOrdered By: Patrice Springer on 69-51-7777Ofixkb [Moles/Vol]139 mmol/Y405-956OacxkmdniParkwood HospitalUrea nitrogen [Mass/volume] in Serum or PlasmaOrdered By: Patrice Springer on 80-74-7685Anyb nitrogen [Mass/Vol]21 mg/dL7-25Park[facility] HospitalWBC Auto (Bld) [#/Vol] Ordered By: Patrice Springer on 80-81-3734RHS (Bld) [#/Vol]9.5 10*3/uL3.8-11.6 [facility] HospitalBasic metabolic 2000 panelon 40-82-1643Sikju gap [Moles/Vol]9 mmol/LNormal9-18Ffederal medical center, devens HospitalComment on above:Order Comment: Specimen Type: BLOOD SPECIMENOrdering Facility: [facility] Address:[address] [place], [place] [address]Performed By: #### 2777- 1, 10357-9, ####CORNELIUS LABORATORYCLIA [id number] [place] [address] [place] AMERICACalcium [Mass/Vol]8.7 mg/dLNormal 8.5-10.2Ffederal medical center, devens HospitalComment on above:Order Comment: Specimen Type: BLOOD SPECIMENOrdering Facility: [facility] Address:[address] [place], [place] [address]Performed By: #### 2777-1, 13095-3, ####CORNELIUS LABORATORYCLIA [id number] [place] [address] [place] OF AMERICAChloride [Moles/Vol]109 mmol/GXuhi41-979Rvqldrfp HospitalComment on above:Order Comment: Specimen Type: BLOOD SPECIMENOrdering Facility: [facility] Address:[address] [place], [place] [address]Performed By: #### 2777-1, 28147-2, ####CORNELIUS LABORATORYCLIA [id number] [place] [id number] [place] OF AMERICACO2 [Moles/Vol]25 mmol/LNormal 22-30FaChelsea Memorial HospitalComment on above:Order Comment: Specimen Type: BLOOD SPECIMENOrdering Facility: [facility] Address:[address] [place], [place] [address]Performed By: #### 2777-1, 31822-5, ####CORNELIUS LABORATORYCLIA [id number] [place] [id number] [place] AMERICACreatinine [Mass/Vol]0.56 mg/dLLow0.58-0.96Arbour-Hri HospitalComment on above:Order Comment: Specimen Type: BLOOD SPECIMENOrdering Facility: [facility] Address:[address] [place], [place] [address]Performed By: #### 2777-1, 03585-4, ####CORNELIUS LABORATORYCLIA [id number] [place] [id number] [place] OF AMERICACreatinine and Glomerular filtration rate.predicted panel (S/P/Bld)98 mL/min/1.73m???Normal>=60FaChelsea Memorial HospitalComment on above:Order Comment: Specimen Type: BLOOD SPECIMENOrdering Facility: [facility] Address:[address] [place], [place] [address]Result Comment: Estimated Glomerular Filtration Rate (eGFR) is [...] reflect actual GFR. Performed By: #### 2777-1, 51335-3, ####CORNELIUS LABORATORYCLIA [id number] [place] [address] [place] AMERICAGlucose [Mass/Vol]99 mg/vBTcthbz24-01Wecnazya HospitalComment on above:Order Comment: Specimen Type: BLOOD SPECIMENOrdering Facility: [facility] Address:[address] [place], [place] [address]Result Comment: The Micron[place] Diabetes Association (ADA) provides guidance for cutoff [...] Standards of Medical Care in Diabetes 2016, [place] Diabetes Association. Diabetes Care. 2016.39(Suppl 1). Performed By: #### 2777-1, , ####CORNELIUS LABORATORYCLIA [id number] [place] [id number] [place] VIVEK Potassium [Moles/Vol]3.8 mmol/LNormal3.7-5.1FBerkshire Medical CenterComment on above: Order Comment: Specimen Type: BLOOD SPECIMENOrdering Facility: [facility] Address:[address] [address]Performed By: #### 2777- 1, 96142-5, ####CORNEILUS LABORATORYCLIA [id number] [place] [address] [place] AMERICASodium [Moles/Vol]143 mmol/LNormal 136-144FaChelsea Memorial HospitalComment on above:Order Comment: Specimen Type: BLOOD SPECIMENOrdering Facility: [facility] Address:[address] [place], [place] [address]Performed By: #### 2777-1, 05787-8, ####CORNELIUS LABORATORYCLIA [id number] [place] [id number] [place] [facility]TINGTON HOSPITALUrea nitrogen [Mass/Vol]11 mg/dLNormal7-21Irvine HospitalComment on above:Order Comment: Specimen Type: BLOOD SPECIMENOrdering Facility: [facility] Address:[address] [place], [place] [address]Performed By: #### 2777-1, 18446-3, ####CORNELIUS LABORATORYCLIA [id number] [place] [id number] [place] WAYNE HOSPITALCASE MANAGEMon 31-79-8248VFWT MANAGEMNormalMassachusetts Mental Health Center panel Auto (Bld)on 74-34-4132Ibhvfbczlfz distribution width (RBC) [Ratio]14.4 %Cdqtpn57.5-15.0Irvine HospitalComment on above:Order Comment: Specimen Type: BLOOD SPECIMENOrdering Facility: [facility] Address:[address] [place], [place] [address]Performed By: #### 70293-4 ####CORNELIUS LABORATORYCLIA [id number] [place] [id number] [facility]OSPITALHematocrit (Bld) [Volume fraction]31.1 %Low 36.0-46.0[facility]vine HospitalComment on above:Order Comment: Specimen Type: BLOOD SPECIMENOrdering Facility: [facility] Address:[address] [place], [place] [address]Performed By: #### 96868-3 ####CORNELIUS LABORATORYCLIA [id number] [place] [id number] [place] [facility] Hemoglobin (Bld) [Mass/Vol]10.3 g/dLLow11.5-15.5Ffederal medical center, devens HospitalComment on above:Order Comment: Specimen Type: BLOOD SPECIMENOrdering Facility: [facility] Address:[address] [place], [place] [address]Performed By: #### 07844-2 ####CORNELIUS LABORATORYCLIA [id number] [place] [id number] [facility] (RBC) [Entitic mass]29.3 ewBuqsgo13.0-34.0 [facility] HospitalComment on above:Order Comment: Specimen Type: BLOOD SPECIMENOrdering Facility: [facility] Address:[address] [place], [place] [address]Performed By: #### 15800-3 ####CORNELIUS LABORATORYCLIA [id number] [address] (RBC) [Mass/Vol]33.1 g/uZYetvni56.5-36.0Fanorthampton state hospital HospitalComment on above:Order Comment: Specimen Type: BLOOD SPECIMENOrdering Facility: [facility] Address:[address] [place], [place] [address]Performed By: #### 45563- 2 ####CORNELIUS LABORATORYCLIA [id number] [address] (RBC) [Entitic vol]88.6 kIDtslny26.0-100.0Irvine HospitalComment on above:Order Comment: Specimen Type: BLOOD SPECIMENOrdering Facility: [facility] Address:[address] [place], [place] [address]Performed By: #### 16877-8 ####CORNELIUS LABORATORYCLIA [id number] [address]ucleated RBC (Bld) [#/Vol]10*3/uLNormal<0.01Fanorthampton state hospital HospitalComment on above:Order Comment: Specimen Type: BLOOD SPECIMENOrdering Facility: [facility] Address:[address] [place], [place] [address]Performed By: #### 88764-2 ####CORNELIUS LABORATORYCLIA [id number] [address]ETPlatelet mean volume (Bld) [Entitic vol]8.5 fLLow 9.0-12.7Ffederal medical center, devens HospitalComment on above:Order Comment: Specimen Type: BLOOD SPECIMENOrdering Facility: [facility] Address:[address] [place], [place] [address]Performed By: #### 34143-5 ####CORNELIUS LABORATORYCLIA [id number] [place] [id number] [facility] Platelets (Bld) [#/Vol]319 10*3/eLMyezho411-826Spwkdnkw HospitalComment on above:Order Comment: Specimen Type: BLOOD SPECIMENOrdering Facility: [facility] Address:[address] [place], [place] [address]Performed By: #### 45482-6 ####CORNELIUS LABORATORYCLIA [id number] [place] [address] [facility] HOSPITALRBC (Bld) [#/Vol]3.51 10*6/uLLow3.90-5.20[facility]vine HospitalComment on above:Order Comment: Specimen Type: BLOOD SPECIMENOrdering Facility: [facility] Address:[address] [place], [place] [address]Performed By: #### 49103-5 ####CORNELIUS LABORATORYCLIA [id number] [place] [address] [facility]OSPITALWBC (Bld) [#/Vol]5.11 10*3/uLNormal3.70-11.00Irvine HospitalComment on above:Order Comment: Specimen Type: BLOOD SPECIMENOrdering Facility: [facility] Address:[address] [place], [place] [address]Performed By: #### 65555-0 ####CORNELIUS LABORATORYCLIA [id number] [place] [id number] [facility] AMERICACNDSon 35-64-2162HSNQYmfmuoPoqlkkfr HospitalCONSULTon 12-19-8343EPVLXXB NormalArbour-Hri HospitalErythrocyte distribution width Auto (RBC) [Ratio]on 35-31-3994Jeqmswyyxry distribution width (RBC) [Ratio]14.4 %11.5-15.0Parkwood HospitalHematocrit Auto (Bld) [Volume fraction]on 09-04-2023 Hematocrit (Bld) [Volume fraction]31.1 %36.0-46.0[facility] HospitalHemoglobin [Mass/volume] in Bloodon 04-03-3140Frhqpobxlm (Bld) [Mass/Vol] 10.3 g/dL11.5-15.5FMcCullough-Hyde Memorial HospitalLaboratory - Chemistry and Chemistry - challengeon 41-13-4451Xaeogui [Mass/Vol]8.7 mg/dL8.5-10.2FMcCullough-Hyde Memorial HospitalChloride [Moles/Vol]109 mmol/D63-753QmtotsuusParkwood HospitalCO2 [Moles/Vol]25 mmol/G45-12InmlxinmaParkwood Hospital Creatinine [Mass/Vol]0.56 mg/dL0.58-0.96Parkwood HospitalGlucose [Mass/Vol]99 mg/sY59-32GleceqgziParkwood HospitalComment on above:The [place]ron[place] Diabetes Association (ADA) provides guidance for cutoff [...] diabetes.Reference: Standardsof Medical Care in Diabetes 2016, [place] Diabetes Association. Diabetes Care. 2016.39(Suppl 1).Magnesium [Mass/Vol]1.8 mg/dL1.7-2.3FMcCullough-Hyde Memorial HospitalPotassium [Moles/Vol]3.8 mmol/L3.7-5.1FMcCullough-Hyde Memorial Hospital Sodium [Moles/Vol]143 mmol/J562-065QrrjtcoujParkwood HospitalUrea nitrogen [Mass/Vol]11 mg/dL7-21Parkwood HospitalLeukocytes [#/volume] corrected for nucleated erythrocytes in Blood by Automated counon 66-00-1346FYE corrected for nucl RBC Auto (Bld) [#/Vol]5.11 k/uL3.70-11.00 [facility] Auto (RBC) [Entitic mass]on 58-96-3753DKS (RBC) [Entitic mass]29.3 pg26.0-34.0[facility]itus Medical CenterHC Auto (RBC) [Mass/Vol]on 75-37-8708GBZA (RBC) [Mass/Vol]33.1 g/dL30.5-36.0Park[facility] HospitalMCV Auto (RBC) [Entitic vol]on 90-88-3852KKW (RBC) [Entitic vol]88.6 fL80.0-100.0Parkwood HospitalMagnesium SerPl-mCncon 58-87-6848Veevidafh [Mass/Vol]1.8 mg/dLNormal1.7-2.3FBerkshire Medical CenterComment on above:Order Comment: Specimen Type: BLOOD SPECIMENOrdering Facility: [facility] Address:[address] [place], [place] [address]Performed By: #### 2777-1, 09764-4, 63826-0 ####LEONA LABORATORYCLIA [id number] [address]ETURSHILLCREST HOSPITAL PROGon 03-59-4844ZBRLGGO PROGNormalArbour-Hri HospitalNo Panel Informationon 59-36-1358Wsdfjiufp GFR (CKD-EPI)98 mL/min/1.73m???>=60Parkwood HospitalComment on above:Estimated Glomerular Filtration Rate (eGFR) is calculated using the 2020 CKD-EPI creatinine equation. This equation utilizes serum creatinine, sex, and age as parameters. The creatinine assay has traceable calibration to isotope dilution-mass spectrometry. Refer to KDIGO guidelines for clinical interpretation. In patients with unstable renal function, e.g. those with acute kidney injury, the eGFRmay not accurately reflect actual GFR. Phosphorus Level4.6 mg/dL2.7-4.8Parkwood HospitalNucleated RBC Auto (Bld) [#/Vol]on 63-36-8290Ettcrhvqf RBC (Bld) [#/Vol]10*3/uL<0.01Parkwood HospitalPhosphate SerPl-mCncon 29-61-4293Luquhstiv [Mass/Vol]4.6 mg/dLNormal2.7-4.8Fanorthampton state hospital HospitalComment on above:Order Comment: Specimen Type: BLOOD SPECIMENOrdering Facility: [facility] Address:[facility] [place] [address]Performed By: #### 2777-1, 78902-5, 66283-5 ####CORNELIUS LABORATORYCLIA [id number] [place] [address] [place] AMERICAPlatelet mean volume Auto (Bld) [Entitic vol]on 68-62-7872Diuojxsn mean volume (Bld) [Entitic vol]8.5 fL9.0-12.7FMcCullough-Hyde Memorial HospitalPlatelets Auto (Bld) [#/Vol]on 60-53-7817Ktofvnzev (Bld) [#/Vol]319 10*3/yN713-655RvlvoyuiaParkwood HospitalRBC Auto (Bld) [#/Vol] on 97-62-1613SBJ (Bld) [#/Vol]3.51 10*6/uL3.90-5.20Memorial Health Systemerum or plasma anion gap determinationon 34-21-3881Advxh gap [Moles/Vol]9 mmol/L9-18FMcCullough-Hyde Memorial HospitalBasic metabolic 2000 panelon 21-22-2930Qyqlj gap [Moles/Vol]9 mmol/LNormal9-18FBerkshire Medical CenterComment on above:Order Comment: Specimen Type: BLOOD SPECIMENOrdering Facility: [facility] Address:[address] [place], [place] [address], [place] [address]Performed By: #### 86573-1, 2776-1, 09609-3 ####CORNELIUS LABORATORYCLIA [id number] [place] [id number] [place] AMERICACalcium [Mass/Vol]8.9 mg/dL Normal8.5-10.2Ffederal medical center, devens HospitalComment on above:Order Comment: Specimen Type: BLOOD SPECIMENOrdering Facility: [facility] Address:[address] [place], [place] [address]Performed By: #### 53477-4, 277-1, 27287-4 ####CORNELIUS LABORATORYCLIA [id number] [place] [address] [place] AMERICAChloride [Moles/Vol]105 mmol/GRespsy25-616Jzlcglgh HospitalComment on above:Order Comment: Specimen Type: BLOOD SPECIMENOrdering Facility: [facility] Address:[address] [place], [place] [address]Performed By: #### 38935-3, 2777-1, 43353-9 ####CORNELIUS LABORATORYCLIA [id number] [place] [address] [place] AMERICACO2 [Moles/Vol]27 mmol/HAuinnd35-28Tdybgjth HospitalComment on above:Order Comment: Specimen Type: BLOOD SPECIMENOrdering Facility: [facility] Address:[address] [place], [place] [address]Performed By: #### 02968-3, 2777-1, 12361-5 ####CORNELIUS LABORATORYCLIA [id number] [place] [address] [place] AMERICACreatinine [Mass/Vol]0.57 mg/dLLow0.58-0.96 Ar[facility]-Hri HospitalComment on above:Order Comment: Specimen Type: BLOOD SPECIMENOrdering Facility: [facility] Address:[address] [place], [place] [address]Performed By: #### 59360-5, 2777-1, 63265-4 ####CORNELIUS LABORATORYCLIA [id number] [place] [id number] [place] AMERICACreatinine and Glomerular filtration rate.predicted panel (S/P/Bld)98 mL/min/1.73m???Normal>=60FaChelsea Memorial HospitalComment on above:Order Comment: Specimen Type: BLOOD SPECIMENOrdering Facility: [facility] Address:[address] [place], [place] [address]Result Comment: Estimated Glomerular Filtration Rate (eGFR) is calculated using the 2020 CKD-EPI creatinine equation. This equation utilizes serum creatinine, sex, and age as parameters. The creatinine assay has traceable calibration to isotope dilution-mass spectrometry. Refer to KDIGO guidelines for clinical interpretation. In patients with unstable renal function, e.g. those with acute kidney injury, the eGFR may not accurately reflect actual GFR.Performed By: #### 79765-6, 2777-1, 83409-8 ####CORNELIUS LABORATORYCLIA [id number] [place] [address] [place] AMERICAGlucose [Mass/Vol]105 mg/xEIjwk48-31Fpdtloct[address] Comment on above:Order Comment: Specimen Type: BLOOD SPECIMENOrdering Facility: [facility] Address:[address] [place], [place] [address]Result Comment: The [place]ron[place] Diabetes Association (ADA) provides guidance for cutoff [...] Standards of Medical Care in Diabetes 2016, [place] Diabetes Association. Diabetes Care. 2016.39(Suppl 1).Performed By: #### 78078-8, 2777-1, 94879-8 ####CORNELIUS LABORATORYCLIA [id number] [place] [address] [place] AMERICAPotassium [Moles/Vol]3.7 mmol/LNormal3.7-5.1FBerkshire Medical CenterComment on above:Order Comment: Specimen Type: BLOOD SPECIMENOrdering Facility: [facility] Address:[address] [place], [place] [address] By: #### 02282-0, 2777-1, 37243-7 ####CORNELIUS LABORATORYCLIA [id number] [place] [address] [place] AMERICASodium [Moles/Vol]141 mmol/L Xjltwt823-312Hzvakmdb HospitalComment on above:Order Comment: Specimen Type: BLOOD SPECIMENOrdering Facility: [facility] Address:[address] [place] [address] [place], [place] [address]Performed By: #### 01028-4, 2777-1, 68600-8 ####CORNELIUS LABORATORYCLIA [id number] [place] [id number] [place] WAYNE HOSPITALUrea nitrogen [Mass/Vol]10 mg/dLNormal7-21Ar[facility]-Hri HospitalComment on above:Order Comment: Specimen Type: BLOOD SPECIMENOrdering Facility: [facility] Address:[address] [place], [place] [address]Performed By: #### 74646-7, 2777-1, 11297-4 ####CORNELIUS LABORATORYCLIA [id number] [place] [address] [facility]PITALCB panel Auto (Bld)on 90-92-0728Rubofvbvvla distribution width (RBC) [Ratio]14.3 % Qfwjws29.5-15.0Ar[facility]-Hri HospitalComment on above:Order Comment: Specimen Type: BLOOD SPECIMENOrdering Facility: [facility] Address:[address] [place], [place] [address]Performed By: #### 07565-1 ####CORNELIUS LABORATORYCLIA [id number] [place] [id number] [facility] Hematocrit (Bld) [Volume fraction]30.5 %Low36.0-46.0Arbour-Hri HospitalComment on above:Order Comment: Specimen Type: BLOOD SPECIMENOrdering Facility: [facility] Address:[address] [place], [place] [address]Performed By: #### 54059-8 ####CORNELIUS LABORATORYCLIA [id number] [place] [address] [facility]OSPITALHemoglobin (Bld) [Mass/Vol]10.1 g/dLLow11.5-15.5 [facility]ri HospitalComment on above:Order Comment: Specimen Type: BLOOD SPECIMENOrdering Facility: [facility] Address:[address] [place], [place] [address]Performed By: #### 61252-6 ####CORNELIUS LABORATORYCLIA [id number] [place] [address] [facility] (RBC) [Entitic mass]29.4 mdLmdwvg63.0-34.0Fanorthampton state hospital HospitalComment on above: Order Comment: Specimen Type: BLOOD SPECIMENOrdering Facility: [facility] Address:[address] [place], [place] [address]Performed By: #### 93201- 2 ####CORNELIUS LABORATORYCLIA [id number] [place] [address] [facility] (RBC) [Mass/Vol]33.1 g/aQSdkaag36.5-36.0Fanorthampton state hospital HospitalComment on above:Order Comment: Specimen Type: BLOOD SPECIMENOrdering Facility: [facility] Address:[address] [place], [place] [address]Performed By: #### 76934-8 ####CORNELIUS LABORATORYCLIA [id number] [address] (RBC) [Entitic vol] 88.9 pGXrozxp74.0-100.0Fanorthampton state hospital HospitalComment on above:Order Comment: Specimen Type: BLOOD SPECIMENOrdering Facility: [facility] Address:[address] [place], [place] [address]Performed By: #### 86095-0 ####CORNELIUS LABORATORYCLIA [id number] [address] RBC (Bld) [#/Vol]10*3/uLNormal<0.01Fanorthampton state hospital HospitalComment on above:Order Comment: Specimen Type: BLOOD SPECIMENOrdering Facility: [facility] Address:[address] [place], [place] [address]Performed By: #### 82694-3 ####CORNELIUS LABORATORYCLIA [id number] [address]ETPlatelet mean volume (Bld) [Entitic vol]8.7 fLLow 9.0-12.7Ffederal medical center, devens HospitalComment on above:Order Comment: Specimen Type: BLOOD SPECIMENOrdering Facility: [facility] Address:[address] [place], [place] [address]Performed By: #### 60778-7 ####VIPINLISSETH LABORATORYCLIA [id number] [place] [id number] [facility] Platelets (Bld) [#/Vol]306 10*3/jSRoyqio706-033Jdlrlgih HospitalComment on above:Order Comment: Specimen Type: BLOOD SPECIMENOrdering Facility: [facility] Address:[address] [place], [place] [address]Performed By: #### 28010-0 ####CORNELIUS LABORATORYCLIA [id number] [place] [id number] [facility] HOSPITALRBC (Bld) [#/Vol]3.43 10*6/uLLow3.90-5.20FaChelsea Memorial HospitalCombeaumont hospital on above:Order Comment: Specimen Type: BLOOD SPECIMENOrdering Facility: [facility] Address:[address] [place], [place] [address]Performed By: #### 26509-5 ####CORNELIUS LABORATORYCLIA [id number] [place] [id number] [facility]OSPITALWBC (Bld) [#/Vol]5.15 10*3/uLNormal3.70-11.00Arbour-Hri HospitalCombeaumont hospital on above:Order Comment: Specimen Type: BLOOD SPECIMENOrdering Facility: [facility] Address:[address] [place], [place] [address]Performed By: #### [id number] ####CORNELIUS LABORATORYCLIA [id number] [place] [id number] [facility] HOSPITALErythrocyte distribution width Auto (RBC) [Ratio]on 09-03-2023 Erythrocyte distribution width (RBC) [Ratio]14.3 %11.5-15.0[facility] HospitalHematocrit Auto (Bld) [Volume fraction]on 45-83-9013Uqxvmtqdfj (Bld) [Volume fraction]30.5 %36.0-46.0[facility] Hemoglobin [Mass/volume] in Bloodon 78-13-6140Claxfrnqvw (Bld) [Mass/Vol]10.1 g/dL11.5-15.5FMcCullough-Hyde Memorial HospitalLaboratory - Chemistry and Chemistry - challengeon 25-39-6446Ebznokb [Mass/Vol]8.9 mg/dL8.5-10.2FMcCullough-Hyde Memorial HospitalChloride [Moles/Vol]105 mmol/Q28-459AqpuroxhlParkwood HospitalCO2 [Moles/Vol]27 mmol/T26-38XzcqytfykParkwood Hospital Creatinine [Mass/Vol]0.57 mg/dL0.58-0.96[facility] HospitalGlucose [Mass/Vol]105 mg/zM64-59MehfkbqcnParkwood HospitalComment on above:The [place] [employer] (ADA) provides guidance for cutoff [...] diabetes.Reference: [employer] in Diabetes 2016, [place] [employer]. Diabetes Care. 2016.39(Suppl 1).Magnesium [Mass/Vol]1.9 mg/dL1.7-2.3FMcCullough-Hyde Memorial HospitalPotassium [Moles/Vol]3.7 mmol/L3.7-5.1FMcCullough-Hyde Memorial Hospital Sodium [Moles/Vol]141 mmol/D835-402OjtqrkgjeParkwood HospitalUrea nitrogen [Mass/Vol]10 mg/dL7-21Parkwood HospitalLeukocytes [#/volume] corrected for nucleated erythrocytes in Blood by Automated counon 40-54-4277RWJ corrected for nucl RBC Auto (Bld) [#/Vol]5.15 k/uL3.70-11.00 [facility] Auto (RBC) [Entitic mass]on 55-83-4752FVM (RBC) [Entitic mass]29.4 pg26.0-34.0Parkwood HospitalMCHC Auto (RBC) [Mass/Vol]on 91-45-9233SDWK (RBC) [Mass/Vol]33.1 g/dL30.5-36.0Park[facility] HospitalMCV Auto (RBC) [Entitic vol]on 54-97-9762OOC (RBC) [Entitic vol]88.9 fL80.0-100.0[facility]wood HospitalMagnesium SerPl-mCncon 78-34-1076Kbfqwvnfg [Mass/Vol]1.9 mg/dLNormal1.7-2.3Ffederal medical center, devens HospitalComment on above:Order Comment: Specimen Type: BLOOD SPECIMENOrdering Facility: [facility] Address:[address] [place], [place] [address]Performed By: #### 36746-2, 2777-1, 28217-1 ####CORN[facility]IUS LABORATORYCLIA [id number] [address]ETURSHILLCREST [facility] PROGon 20-74-8830CZKTGYM PROGNormalArbour-Hri HospitalNo Panel Informationon 28-36-0194Lbyvslcal GFR (CKD-EPI)98 mL/min/1.73m???>=60Parkwood HospitalComment on above:Estimated Glomerular Filtration Rate (eGFR) is calculated using the 2020 CKD-EPI creatinine equation. This equation utilizes serum creatinine, sex, and age as parameters. The creatinine assay has traceable calibration to isotope dilution-mass spectrometry. Refer to KDIGO guidelines for clinical interpretation. In patients with unstable renal function, e.g. those with acute kidney injury, the eGFRmay not accurately reflect actual GFR. Phosphorus Level3.7 mg/dL2.7-4.8Parkwood HospitalNucleated RBC Auto (Bld) [#/Vol]on 14-23-9935Vlslxhgwu RBC (Bld) [#/Vol]10*3/uL<0.01Park[facility] HospitalPhosphate SerPl-mCncon 90-57-4436Uctvzscxu [Mass/Vol]3.7 mg/dLNormal2.7-4.8FaChelsea Memorial HospitalComment on above:Order Comment: Specimen Type: BLOOD SPECIMENOrdering Facility: [facility] Address:[address] [place], [place] [address]Performed By: #### 17289-1, 2777-1, 25453-6 ####CORNELIUS LABORATORYCLIA [id number] [place] [id number] [place] OF AMERICAPlatelet mean volume Auto (Bld) [Entitic vol]on 87-98-5434Iuzbazde mean volume (Bld) [Entitic vol]8.7 fL9.0-12.7FMcCullough-Hyde Memorial HospitalPlatelets Auto (Bld) [#/Vol]on 17-95-9579Zfqkvcynt (Bld) [#/Vol]306 10*3/eB091-514OnnhwfqnxParkwood HospitalRBC Auto (Bld) [#/Vol] on 19-43-7201XDE (Bld) [#/Vol]3.43 10*6/uL3.90-5.20[facility] Systemerum or plasma anion gap determinationon 38-47-3384Oersx gap [Moles/Vol]9 mmol/L9-18FMcCullough-Hyde Memorial HospitalBasic metabolic 2000 panelon 59-30-3425Ypegt gap [Moles/Vol]13 mmol/LNormal9-18Ffederal medical center, devens HospitalComment on above:Order Comment: Specimen Type: BLOOD SPECIMENOrdering Facility: [facility] Address:[address] [place], [place] [address]Performed By: #### 2777-1, 95000-0, ####CORNELIUS LABORATORYCLIA [id number] [place] [id number] [place] OF AMERICACalcium [Mass/Vol]8.7 mg/dL Normal8.5-10.2Ffederal medical center, devens HospitalComment on above:Order Comment: Specimen Type: BLOOD SPECIMENOrdering Facility: [facility] Address:[address] [place], [place] [address]Performed By: #### 2777-1, 02810-3, ####CORNELIUS LABORATORYCLIA [id number] [place] [id number] [place] OF AMERICAChloride [Moles/Vol]106 mmol/PNmpy72-222Csorfzbj HospitalComment on above:Order Comment: Specimen Type: BLOOD SPECIMENOrdering Facility: [facility] Address:[address] [place], [place] [address]Performed By: #### 2777-1, 49087-5, ####CORNELIUS LABORATORYCLIA [id number] [place] [address] [place] OF AMERICACO2 [Moles/Vol]26 mmol/VJkiakt41-61Wlzqztvd HospitalComment on above:Order Comment: Specimen Type: BLOOD SPECIMENOrdering Facility: [facility] Address:[address] [place], [place] [address]Performed By: #### 2777-1, 62096-5, ####CORNELIUS LABORATORYCLIA [id number] [place] [phone] [place] AMERICACreatinine [Mass/Vol]0.61 mg/dLNormal0.58-0.96 [facility]-Hri HospitalComment on above:Order Comment: Specimen Type: BLOOD SPECIMENOrdering Facility: [facility] Address:[address] [place], [place] [address]Performed By: #### 2777-1, , ####CORNELIUS LABORATORYCLIA [id number] [place] [id number] [place] AMERICACreatinine and Glomerular filtration rate.predicted panel (S/P/Bld)96 mL/min/1.73m???Normal>=60FaChelsea Memorial HospitalComment on above:Order Comment: Specimen Type: BLOOD SPECIMENOrdering Facility: [facility] Address:[address] [place], [place] [address]Result Comment: Estimated Glomerular Filtration Rate (eGFR) is [...] accurately reflect actual GFR.Performed By: #### 2777-1, 10520-7, ####CORNELIUS LABORATORYCLIA [id number] [place] [address] [place] AMERICAGlucose [Mass/Vol]84 mg/aDUirvca27-39Nigvxqdz Hospital Comment on above:Order Comment: Specimen Type: BLOOD SPECIMENOrdering Facility: [facility] Address:[address] [place], [place] [address]Result Comment: The Micronesian Diabetes Association (ADA) provides guidance for cutoff [...] Standards of Medical Care in Diabetes 2016, [place] Diabetes Association. Diabetes Care. 2016.39(Suppl 1).Performed By: #### 2777-1, 96093-6, ####CORNELIUS LABORATORYCLIA [id number] [place] [id number] [place] AMERICAPotassium [Moles/Vol]3.5 mmol/LLow3.7-5.1Ffederal medical center, devens HospitalComment on above:Order Comment: Specimen Type: BLOOD SPECIMENOrdering Facility: [facility] Address:[address] [place], [place] [address]Performed By: #### 2777-1, 61640-8, ####CORNELIUS LABORATORYCLIA [id number] [place] [address] [place] AMERICASodium [Moles/Vol]145 mmol/L Ycjl420-917Btlmelay HospitalComment on above:Order Comment: Specimen Type: BLOOD SPECIMENOrdering Facility: [facility] Address:[address] [place], [place] [address]Performed By: #### 2777-1, 95391-6, ####CORNELIUS LABORATORYCLIA [id number] [place] [address] [place] AMERICAUrea nitrogen [Mass/Vol]22 mg/dLHigh7-21Fanorthampton state hospital HospitalComment on above:Order Comment: Specimen Type: BLOOD SPECIMENOrdering Facility: [facility] Address:[address] [place], [place] [address]Performed By: #### 2777-1, 39661-4, 96746-7 ####CORNELIUS LABORATORYCLIA [id number] [place] [address] [facility]OS[facility]ITALCBC panel Auto (Bld)on 94-80-6365Xbvfblzvwyg distribution width (RBC) [Ratio]14.6 %Mcwyqp32.5-15.0 [facility] HospitalComment on above:Order Comment: Specimen Type: BLOOD SPECIMENOrdering Facility: [facility] Address:[address] [place], [place] [address]Performed By: #### 17496-4 ####CORNELIUS LABORATORYCLIA [id number] [place] [address] [facility] Hematocrit (Bld) [Volume fraction]33.2 %Low36.0-46.0Fanorthampton state hospital HospitalComment on above:Order Comment: Specimen Type: BLOOD SPECIMENOrdering Facility: [facility] Address:[address] [place], [place] [address]Performed By: #### 52491-2 ####CORNELIUS LABORATORYCLIA [id number] [place] [address] [facility]ITALHemoglobin (Bld) [Mass/Vol]10.8 g/dLLow11.5-15.5 [facility] HospitalComment on above:Order Comment: Specimen Type: BLOOD SPECIMENOrdering Facility: [facility] Address:[address] [place], [place] [address]Performed By: #### 04504-4 ####CORNELIUS LABORATORYCLIA [id number] [place] [address] [place] OF AMERICAMCH (RBC) [Entitic mass]29.4 grSslpoj76.0-34.0Fanorthampton state hospital HospitalComment on above: Order Comment: Specimen Type: BLOOD SPECIMENOrdering Facility: [facility] Address:[address] [place], [place] [address]Performed By: #### 60869- 2 ####CORNELIUS LABORATORYCLIA [id number] [place] [address] [facility]PITALMCHC (RBC) [Mass/Vol]32.5 g/dTQzlucf70.5-36.0Fanorthampton state hospital HospitalComment on above:Order Comment: Specimen Type: BLOOD SPECIMENOrdering Facility: [facility] Address:[address] [place], [place] [address]Performed By: #### 33088-6 ####CORNELIUS LABORATORYCLIA [id number] [place] [address] [facility]OSPITALMCV (RBC) [Entitic vol] 90.5 nXEmvxmb26.0-100.0Fanorthampton state hospital HospitalComment on above:Order Comment: Specimen Type: BLOOD SPECIMENOrdering Facility: [facility] Address:[address] [place], [place] [address]Performed By: #### 06046-5 ####CORNELIUS LABORATORYCLIA [id number] [place] [address] [facility] MEDICAL CENTERucleated RBC (Bld) [#/Vol]10*3/uLNormal<0.01Fanorthampton state hospital HospitalComment on above:Order Comment: Specimen Type: BLOOD SPECIMENOrdering Facility: [facility] Address:[address] [place], [place] [address]Performed By: #### 07224-3 ####CORNELIUS LABORATORYCLIA [id number] [place] [id number] [facility] HOSPITALPlatelet mean volume (Bld) [Entitic vol]8.4 fLLow 9.0-12.7Ffederal medical center, devens HospitalComment on above:Order Comment: Specimen Type: BLOOD SPECIMENOrdering Facility: [facility] Address:[address] [place], [place] [address]Performed By: #### 82880-2 ####CORNELIUS LABORATORYCLIA [id number] [place] [address] [facility] Platelets (Bld) [#/Vol]290 10*3/vMNwkqqs105-709Iqapyeqg HospitalComment on above:Order Comment: Specimen Type: BLOOD SPECIMENOrdering Facility: [facility] Address:[address] [place], [place] [address]Performed By: #### 29432-3 ####CORNELIUS LABORATORYCLIA [id number] [address]ETRBC (Bld) [#/Vol]3.67 10*6/uLLow3.90-5.20Fanorthampton state hospital HospitalComment on above:Order Comment: Specimen Type: BLOOD SPECIMENOrdering Facility: [facility] Address:[address] [place], [place] [address]Performed By: #### 52930-0 ####CORNELIUS LABORATORYCLIA [id number] [address]ETWBC (Bld) [#/Vol]5.87 10*3/uLNormal3.70-11.00Fanorthampton state hospital HospitalComment on above:Order Comment: Specimen Type: BLOOD SPECIMENOrdering Facility: [facility] Address:[address] [place], [place] [address]Performed By: #### 06660-4 ####CORNELIUS LABORATORYCLIA [id number] [address]ETErythrocyte distribution width Auto (RBC) [Ratio]on 09-02-2023 Erythrocyte distribution width (RBC) [Ratio]14.6 %11.5-15.0Parkwood HospitalHematocrit Auto (Bld) [Volume fraction]on 05-53-7648Ocllkjaxdz (Bld) [Volume fraction]33.2 %36.0-46.0[facility] Hemoglobin [Mass/volume] in Bloodon 33-37-2771Fdndlfwcdp (Bld) [Mass/Vol]10.8 g/dL11.5-15.5FMcCullough-Hyde Memorial HospitalLaboratory - Chemistry and Chemistry - challengeon 51-32-2355Zutxqpl [Mass/Vol]8.7 mg/dL8.5-10.2FMcCullough-Hyde Memorial HospitalChloride [Moles/Vol]106 mmol/Z84-508IvdsrsrfzParkwood HospitalCO2 [Moles/Vol]26 mmol/G95-19DxxvswlaoParkwood Hospital Creatinine [Mass/Vol]0.61 mg/dL0.58-0.96Park[facility] HospitalGlucose [Mass/Vol]84 mg/xR67-73BfxyihczpParkwood HospitalComment on above:The [place]ron[place] Diabetes Association (ADA) provides guidance for cutoff [...] diabetes.Reference: Standardsof Medical Care in Diabetes 2016, [place] Diabetes Association. Diabetes Care. 2016.39(Suppl 1).Magnesium [Mass/Vol]2.1 mg/dL1.7-2.3FMcCullough-Hyde Memorial HospitalPotassium [Moles/Vol]3.5 mmol/L3.7-5.1FMcCullough-Hyde Memorial Hospital Sodium [Moles/Vol]145 mmol/O219-958NufedzkcvParkwood HospitalUrea nitrogen [Mass/Vol]22 mg/dL7-21Parkwood HospitalLeukocytes [#/volume] corrected for nucleated erythrocytes in Blood by Automated counon 91-21-5179CHT corrected for nucl RBC Auto (Bld) [#/Vol]5.87 k/uL3.70-11.00 [facility] CenterH Auto (RBC) [Entitic mass]on 15-55-3365SDV (RBC) [Entitic mass]29.4 pg26.0-34.0Park[facility] HospitalMCHC Auto (RBC) [Mass/Vol]on 20-14-6466GGBQ (RBC) [Mass/Vol]32.5 g/dL30.5-36.0[facility] HospitalMCV Auto (RBC) [Entitic vol]on 69-92-5440YJY (RBC) [Entitic vol]90.5 fL80.0-100.0Park[facility] HospitalMagnesium SerPl-ncon 49-09-2338Hherjbozb [Mass/Vol]2.1 mg/dLNormal1.7-2.3Ffederal medical center, devens HospitalComment on above:Order Comment: Specimen Type: BLOOD SPECIMENOrdering Facility: [facility] Address:[address] [place], [place] [address]Performed By: #### 2777-1, 63599-8, ####CORNELIUS LABORATORYCLIA [id number] [place] [id number] [place] OF AMERICANURSING PROGon 87-43-1483RVQLTDC PROGNormalArbour-Hri HospitalNo [facility] Informationon 55-55-2199Vmtawdztv GFR (CKD-EPI)96 mL/min/1.73m???>=60[facility] HospitalComment on above:Estimated Glomerular Filtration Rate (eGFR) is calculated using the 2020 CKD-EPI creatinine equation. This equation utilizes serum creatinine, sex, and age as parameters. The creatinine assay has traceable calibration to isotope dilution-mass spectrometry. Refer to KDIGO guidelines for clinical interpretation. In patients with unstable renal function, e.g. those with acute kidney injury, the eGFRmay not accurately reflect actual GFR. Phosphorus Level3.5 mg/dL2.7-4.8Park[facility] HospitalNucleated RBC Auto (Bld) [#/Vol]on 51-76-9215Xyizuzigc RBC (Bld) [#/Vol]10*3/uL<0.01[facility] HospitalPhosphate SerPl-mCncon 70-82-8525Fjsqrpuvj [Mass/Vol]3.5 mg/dLNormal2.7-4.8[facility]-Hri HospitalComment on above:Order Comment: Specimen Type: BLOOD SPECIMENOrdering Facility: [facility] Address:[address] [place], [place] [address]Performed By: #### 2777-1, 81063-5, ####CORNELIUS LABORATORYCLIA [id number] [place] [id number] [place] AMERICAPlatelet mean volume Auto (Bld) [Entitic vol]on 22-53-3498Yoehewoa mean volume (Bld) [Entitic vol]8.4 fL9.0-12.7FMcCullough-Hyde Memorial HospitalPlatelets Auto (Bld) [#/Vol]on 34-33-1944Kvokojrmr (Bld) [#/Vol]290 10*3/qX665-951ItzpxtsrwParkwood HospitalRBC Auto (Bld) [#/Vol] on 09-26-4650UNX (Bld) [#/Vol]3.67 10*6/uL3.90-5.20[facility] Systemerum or plasma anion gap determinationon 11-29-6515Jvyzx gap [Moles/Vol] 13 mmol/L9-18FMcCullough-Hyde Memorial HospitalBasic metabolic 2000 panelon 77-22-4901Imcqk gap [Moles/Vol]13 mmol/LNormal9-18Ffederal medical center, devens HospitalComment on above:Order Comment: Specimen Type: BLOOD SPECIMENOrdering Facility: [facility] Address:[address] [place], [place] [address]Performed By: #### 66215-4, 2776-07, ####CORNELIUS LABORATORYCLIA [id number] [place] [address] [place] AMERICACalcium [Mass/Vol]8.8 mg/dL Normal8.5-10.2Ffederal medical center, devens HospitalComment on above:Order Comment: Specimen Type: BLOOD SPECIMENOrdering Facility: [facility] Address:[address] [place], [place] [address]Performed By: #### 04426-6, 2776-07, ####CORNELIUS LABORATORYCLIA [id number] [place] [address] [place] AMERICAChloride [Moles/Vol]101 mmol/YQtrxyh81-305Nxtiiluj HospitalComment on above:Order Comment: Specimen Type: BLOOD SPECIMENOrdering Facility: [facility] Address:[address] [place], [place] [address]Performed By: #### 81469-2, 2776-07, ####CORNELIUS LABORATORYCLIA [id number] [place] [address] [place] AMERICACO2 [Moles/Vol]27 mmol/PRrhesg85-60Ptqrdhvk HospitalComment on above:Order Comment: Specimen Type: BLOOD SPECIMENOrdering Facility: [facility] Address:[address] [place], [place] [address]Performed By: #### 74576-4, 2777-, ####CORENLIUS LABORATORYCLIA [id number] [place] [address] [place] AMERICACreatinine [Mass/Vol]0.77 mg/dLNormal0.58-0.96 [facility]ri HospitalComment on above:Order Comment: Specimen Type: BLOOD SPECIMENOrdering Facility: [facility] Address:[address] [place], [place] [address]Performed By: #### 60601-0, 2777, ####[facility] LABORATORYCLIA [id number] [place] [address] [place] AMERICACreatinine and Glomerular filtration rate.predicted panel (S/P/Bld)83 mL/min/1.73m???Normal>=60FaChelsea Memorial HospitalComment on above:Order Comment: Specimen Type: BLOOD SPECIMENOrdering Facility: [facility] Address:[address] [place], [place] [address]Result Comment: Estimated Glomerular Filtration Rate (eGFR) is calculated using the 2020 CKD-EPI creatinine equation. This equation utilizes serum creatinine, sex, and age as parameters. The creatinine assay has traceable calibration to isotope dilution-mass spectrometry. Refer to KDIGO guidelines for clinical interpretation. In patients with unstable renal function, e.g. those with acute kidney injury, the eGFR may not accurately reflect actual GFR.Performed By: #### 56961-4, 2777, ####CORNELIUS LABORATORYCLIA [id number] [place] [address] [place] OF AMERICAGlucose [Mass/Vol]95 mg/wJBiochm40-98Fswmrzll Hospital Comment on above:Order Comment: Specimen Type: BLOOD SPECIMENOrdering Facility: [facility] Address:[address] [place], [place] [address]Ybrcfv Comment: The Micron[place] Diabetes Association (ADA) provides guidance for cutoff [...] Standards of Medical Care in Diabetes 2016, [place] Diabetes Association. Diabetes Care. 2016.39(Suppl 1).Performed By: #### 24623-6, 2776-07, ####CORNELIUS LABORATORYCLIA [id number] [place] [id number] [place] AMERICAPotassium [Moles/Vol]4.2 mmol/LNormal3.7-5.1Ffederal medical center, devens HospitalComment on above:Order Comment: Specimen Type: BLOOD SPECIMENOrdering Facility: [facility] Address:[address] [place], [place] [address]Performed By: #### 44156-8, 2776-07, ####CORNELIUS LABORATORYCLIA [id number] [place] [address] [place] AMERICASodium [Moles/Vol]141 mmol/L Broacw239-059Zqfracmo HospitalComment on above:Order Comment: Specimen Type: BLOOD SPECIMENOrdering Facility: [facility] Address:[address] [place], [place] [address]Zpgrlkxoc By: #### 18137-5, 2776-07, ####CORNELIUS LABORATORYCLIA [id number] [place] [address] [place] AMERICAUrea nitrogen [Mass/Vol]22 mg/dLHigh7-21FaChelsea Memorial HospitalComment on above:Order Comment: Specimen Type: BLOOD SPECIMENOrdering Facility: [facility] Address:[address] [place] [address]Performed By: #### 70646-1, 2777-1, 92710-3 ####CORNELIUS LABORATORYCLIA [id number] [place] [address] [place] OF AMERICACASE MANAGEMon 47-57-0933HNLR MANAGEMNormalFaWaltham Hospital panel Auto (Bld)on 04-58-7225Vwdwzrhrqds distribution width (RBC) [Ratio]15.2 %High11.5-15.0 [facility] HospitalComment on above:Order Comment: Specimen Type: BLOOD SPECIMENOrdering Facility: [facility] Address:[address] [place], [place] [address]Performed By: #### 50312-1 ####CORNELIUS LABORATORYCLIA [id number] [place] [id number] [facility] Hematocrit (Bld) [Volume fraction]35.3 %Low36.0-46.0[facility] HospitalComment on above:Order Comment: Specimen Type: BLOOD SPECIMENOrdering Facility: [facility] Address:[address] [place], [place] [address]Performed By: #### 46742-0 ####CORNELIUS LABORATORYCLIA [id number] [place] [address] [place] [facility]PITALHemoglobin (Bld) [Mass/Vol]11.8 g/dLNormal 11.5-15.5Ffederal medical center, devens HospitalComment on above:Order Comment: Specimen Type: BLOOD SPECIMENOrdering Facility: [facility] Address:[address] [place], [place] [address]Performed By: #### 60843-1 ####CORNELIUS LABORATORYCLIA [id number] [place] [address] [place] AMERICAMCH (RBC) [Entitic mass]29.6 doHkndlw82.0-34.0[facility] HospitalComment on above: Order Comment: Specimen Type: BLOOD SPECIMENOrdering Facility: [facility] Address:[address] [place], [place] [address]Performed By: #### 60378- 2 ####CORNELIUS LABORATORYCLIA [id number] [address]ETMCHC (RBC) [Mass/Vol]33.4 g/uGMcklbh47.5-36.0Fanorthampton state hospital HospitalComment on above:Order Comment: Specimen Type: BLOOD SPECIMENOrdering Facility: [facility] Address:[address] [place], [place] [address]Performed By: #### 15001-6 ####CORNELIUS LABORATORYCLIA [id number] [address]ETMCV (RBC) [Entitic vol] 88.7 sYAwwrbn36.0-100.0Fanorthampton state hospital HospitalComment on above:Order Comment: Specimen Type: BLOOD SPECIMENOrdering Facility: [facility] Address:[address] [place], [place] [address]Performed By: #### 25275-2 ####CORNELIUS LABORATORYCLIA [id number] [address]ucleated RBC (Bld) [#/Vol]10*3/uLNormal<0.01Fanorthampton state hospital HospitalComment on above:Order Comment: Specimen Type: BLOOD SPECIMENOrdering Facility: [facility] Address:[address] [place], [place] [address]Performed By: #### 74695-8 ####CORNELIUS LABORATORYCLIA [id number] [address]ETPlatelet mean volume (Bld) [Entitic vol]8.5 fLLow 9.0-12.7Ffederal medical center, devens HospitalComment on above:Order Comment: Specimen Type: BLOOD SPECIMENOrdering Facility: [facility] Address:[address] [place], [place] [address]Performed By: #### 14781-7 ####CORNELIUS LABORATORYCLIA [id number] [address] Platelets (Bld) [#/Vol]297 10*3/cRFlsjjk701-596Rezwrxxp HospitalComment on above:Order Comment: Specimen Type: BLOOD SPECIMENOrdering Facility: [facility] Address:[address] [place], [place] [address], [place] [address]Zjflxfrlb By: #### 32593-9 ####CORNELIUS LABORATORYCLIA [id number] [place] [address] [facility] HOSPITALRBC (Bld) [#/Vol]3.98 10*6/uLNormal3.90-5.20 [facility]ri HospitalComment on above:Order Comment: Specimen Type: BLOOD SPECIMENOrdering Facility: [facility] Address:[address] [place], [place] [address]Performed By: #### 46649-5 ####[facility] LABORATORYCLIA [id number] [place] [address] [facility]PITALWBC (Bld) [#/Vol]5.99 10*3/uLNormal3.70-11.00[facility]-Hri HospitalComment on above:Order Comment: Specimen Type: BLOOD SPECIMENOrdering Facility: [facility] Address:[address] [place], [place] [address]Performed By: #### 47075- 2 ####[facility] LABORATORYCLIA [id number] [place] [id number] [place] [facility] HOSPITALErythrocyte distribution width Auto (RBC) [Ratio]on 70-01-3137Acexgfjknnu distribution width (RBC) [Ratio]15.2 %11.5-15.0[facility] HospitalHematocrit Auto (Bld) [Volume fraction]on 09-01-2023 Hematocrit (Bld) [Volume fraction]35.3 %36.0-46.0[facility] HospitalHemoglobin [Mass/volume] in Bloodon 11-43-1483Haeoahlagp (Bld) [Mass/Vol] 11.8 g/dL11.5-15.5FMcCullough-Hyde Memorial HospitalLaboratory - Chemistry and Chemistry - challengeon 91-83-8448Gywvcyo [Mass/Vol]8.8 mg/dL8.5-10.2FMcCullough-Hyde Memorial HospitalChloride [Moles/Vol]101 mmol/Z44-990BicczwzgjParkwood HospitalCO2 [Moles/Vol]27 mmol/K26-52KrhabwgbhParkwood Hospital Creatinine [Mass/Vol]0.77 mg/dL0.58-0.96Park[facility] HospitalGlucose [Mass/Vol]95 mg/bE70-93ZwbjapphtParkwood HospitalComment on above:The [place] Diabetes Association (ADA) provides guidance for cutoff [...] diabetes.Reference: Standardsof Medical Care in Diabetes 2016, [place] Diabetes Association. Diabetes Care. 2016.39(Suppl 1).Magnesium [Mass/Vol]2.2 mg/dL1.7-2.3FMcCullough-Hyde Memorial HospitalPotassium [Moles/Vol]4.2 mmol/L3.7-5.1FMcCullough-Hyde Memorial Hospital Sodium [Moles/Vol]141 mmol/H578-114MdqdpjfmdParkwood HospitalUrea nitrogen [Mass/Vol]22 mg/dL7-21Parkwood HospitalLeukocytes [#/volume] corrected for nucleated erythrocytes in Blood by Automated counon 95-17-0069FCC corrected for nucl RBC Auto (Bld) [#/Vol]5.99 k/uL3.70-11.00 [facility] CenterH Auto (RBC) [Entitic mass]on 99-55-5852NPU (RBC) [Entitic mass]29.6 pg26.0-34.0Park[facility] HospitalMCHC Auto (RBC) [Mass/Vol]on 22-99-8050XZXR (RBC) [Mass/Vol]33.4 g/dL30.5-36.0[facility] HospitalMCV Auto (RBC) [Entitic vol]on 97-45-4615GOE (RBC) [Entitic vol]88.7 fL80.0-100.0[facility] HospitalMagnesium SerPl-mCncon 80-65-7998Wphqfapnv [Mass/Vol]2.2 mg/dLNormal1.7-2.3Ffederal medical center, devens HospitalComment on above:Order Comment: Specimen Type: BLOOD SPECIMENOrdering Facility: [facility] Address:[address] [place] [id number] By: #### [id number], [id number]-, ####[facility] LABORATORYCLIA [id number] [place] [id number] [place] Panel Informationon 44-71-6814Yhlsagiur GFR (CKD-EPI)83 mL/min/1.73m???>=60 Parkwood HospitalComment on above:Estimated Glomerular Filtration Rate (eGFR) is calculated using the 2020 CKD-EPI creatinine equation. This equation utilizes serum creatinine, sex, and age as parameters. The creatinine assay has traceable calibration to isotope dilution-mass spectrometry. Refer to KDIGO guidelines for clinical interpretation. In patients with unstable renal function, e.g. those with acute kidney injury, the eGFRmay not accurately reflect actual GFR.Phosphorus Level4.3 mg/dL2.7-4.8Parkwood HospitalNucleated RBC Auto (Bld) [#/Vol]on 49-46-4759Ufplhwxbv RBC (Bld) [#/Vol]10*3/uL<0.01Parkwood HospitalPhosphate SerPl-mCncon 99-79-2103Wrwrgrayn [Mass/Vol]4.3 mg/dLNormal2.7-4.8FaChelsea Memorial HospitalComment on above:Order Comment: Specimen Type: BLOOD SPECIMENOrdering Facility: [facility] Address:[address] [place], [place] [address]Hqsgjkxrq By: #### 89143-7, 2776-07, ####CONRELIUS LABORATORYCLIA [id number] [place] [id number] [place] Platelet mean volume Auto (Bld) [Entitic vol]on 73-11-1626Nkpsprnl mean volume (Bld) [Entitic vol]8.5 fL9.0-12.7FMcCullough-Hyde Memorial HospitalPlatelets Auto (Bld) [#/Vol]on 81-64-6340Kpxzvplye (Bld) [#/Vol]297 10*3/fW015-554DiiddayufParkwood HospitalRBC Auto (Bld) [#/Vol]on 65-80-7943IEJ (Bld) [#/Vol]3.98 10*6/uL3.90-5.20[facility] Systemerum or plasma anion gap determinationon 36-38-1101Stloi gap [Moles/Vol]13 mmol/L9-18FMcCullough-Hyde Memorial HospitalALLIED HEALTHon 14-26-7618VJZBFW United HospitalAutomated epithelial cells count in urine sediment (number/area)on 88-06-0711Qainjtceez cells Auto (Urine sed) [#/Area]Few [HPF]Parkwood HospitalAutomated leukocytes count in urine sediment (number/area)on 02-17-2320ZJV Auto (Urine sed) [#/Area]3-5 /HPF0-3 /HPF Parkwood HospitalAutomated urine hyaline casts count (number/volume)on 10-22-3515Jsonnbx casts Auto (U) [#/Vol]4-10 /LPF0 /LPF Parkwood HospitalAutomated urine specific gravity by refractometryon 09-09-4073Wgluixnb gravity Refractometry automated (U) [Rel density]>1.0501.005-1.030Parkwood HospitalBasophils Auto (Bld) [#/Vol]on 77-88-7224Uhuattgje (Bld) [#/Vol]10*3/uL<0.11Parkwood HospitalBasophils/100 WBC Auto (Bld)on 21-56-6087Lwxejgygr/100 WBC (Bld) 0.2 %Parkwood HospitalBilirubin Auto test strip (U) [Mass/Vol]on 95-06-4718Gnvtpgdwl (U) [Mass/Vol]NegativeNegativeParkwood HospitalBlood manual differential comment interpretation narrativeon 08-31-2023 Manual differential comment Ankush (Bld) [Interp]AutoParkwood HospitalCASE MGT INIT ASSESon 31-33-4182AWMA MGT INIT [facility] CBC W Auto Differential panel (Bld)on 36-51-7095Avnwxcimd (Bld) [#/Vol]10*3/uL Normal<0.11Irvine HospitalComment on above:Order Comment: Specimen Type: BLOOD SPECIMENOrdering Facility: [facility] Address:[address] [place], [place] [address]Performed By: #### 65754-2 ####CORNELIUS LABORATORYCLIA [id number] [place] [address] [place] Basophils/100 WBC (Bld)0.2 %NormalIrvine HospitalComment on above:Order Comment: Specimen Type: BLOOD SPECIMENOrdering Facility: [facility] Address:[address] [place], [place] [address]Performed By: #### 92472- 8 ####CORNELIUS LABORATORYCLIA [id number] [place] [address] [place] AMERICADifferential cell count method Nom (Bld)AutoNormal [facility]bour-Hri HospitalCombeaumont hospital on above:Order Comment: Specimen Type: BLOOD SPECIMENOrdering Facility: [facility] Address:[address] [place], [place] [address]Performed By: #### 48126-2 ####CORNELIUS LABORATORYCLIA [id number] [place] [address] [place] Eosinophils (Bld) [#/Vol]0.09 10*3/uLNormal<0.46Irvine HospitalComment on above:Order Comment: Specimen Type: BLOOD SPECIMENOrdering Facility: [facility] Address:[address] [place], [place] [address]Performed By: #### 65340-7 ####CORNELIUS LABORATORYCLIA [id number] [place] [id number] [place] AMERICAEosinophils/100 WBC (Bld)1.0 %NormalIrvine HospitalCombeaumont hospital on above:Order Comment: Specimen Type: BLOOD SPECIMENOrdering Facility: [facility] Address:[address] [place], [place] [address]Performed By: #### 86398-9 ####CORNELIUS LABORATORYCLIA [id number] [place] [id number] [place] OF AMERICAErythrocyte distribution width (RBC) [Ratio]14.6 %Jgwybs86.5-15.0Fanorthampton state hospital HospitalComment on above:Order Comment: Specimen Type: BLOOD SPECIMENOrdering Facility: [facility] Address:[address] [place], [place] [address]Performed By: #### 59456-4 ####CORNELIUS LABORATORYCLIA [id number] [place] [id number] [place] WAYNE HOSPITALHematocrit (Bld) [Volume fraction]40.9 %Normal 36.0-46.0Fanorthampton state hospital HospitalComment on above:Order Comment: Specimen Type: BLOOD SPECIMENOrdering Facility: [facility] Address:[address] [place], [place] [address]Performed By: #### 26805-7 ####CORNELIUS LABORATORYCLIA [id number] [place] [id number] [place] Hemoglobin (Bld) [Mass/Vol]14.4 g/gNPluvqr65.5-15.5Ffederal medical center, devens HospitalComment on above:Order Comment: Specimen Type: BLOOD SPECIMENOrdering Facility: [facility] Address:[address] [place], [place] [address]Performed By: #### 78088-2 ####CORNELIUS LABORATORYCLIA [id number] [place] [id number] [place] OF WAYNE HOSPITALImmature granulocytes (Bld) [#/Vol]0.08 10*3/uL Normal<0.10Irvine HospitalComment on above:Order Comment: Specimen Type: BLOOD SPECIMENOrdering Facility: [facility] Address:[address] [place], [place] [address]Performed By: #### 98427-3 ####CORNELIUS LABORATORYCLIA [id number] [place] [id number] [place] Immature granulocytes/100 WBC (Bld)0.9 %NormalFanorthampton state hospital HospitalComment on above: Order Comment: Specimen Type: BLOOD SPECIMENOrdering Facility: [facility] Address:[address] [place], [place] [address]Performed By: #### 06331- 8 ####CORNELIUS LABORATORYCLIA [id number] [place] [address] [facility] HOSPITALLymphocytes (Bld) [#/Vol]1.06 10*3/uLNormal1.00-4.00 Irvine HospitalComment on above:Order Comment: Specimen Type: BLOOD SPECIMENOrdering Facility: [facility] Address:[address] [place], [place] [address]Performed By: #### 91116-6 ####[facility] LABORATORYCLIA [id number] [place] [id number] [facility] Lymphocytes/100 WBC (Bld)11.4 %NormalArbour-Hri HospitalComment on above:Order Comment: Specimen Type: BLOOD SPECIMENOrdering Facility: [facility] Address:[address] [place], [place] [address]Performed By: #### 51213- 8 ####CORNELIUS LABORATORYCLIA [id number] [address] (RBC) [Entitic mass]29.8 avQojkwx78.0-34.0Irvine HospitalComment on above:Order Comment: Specimen Type: BLOOD SPECIMENOrdering Facility: [facility] Address:[address] [place], [place] [address]Performed By: #### 53764-2 ####CORNELIUS LABORATORYCLIA [id number] [place] [id number] [facility] (RBC) [Mass/Vol] 35.2 g/vLIvbikp16.5-36.0Irvine HospitalComment on above:Order Comment: Specimen Type: BLOOD SPECIMENOrdering Facility: [facility] Address:[address] [place], [place] [address]Performed By: #### 41452-0 ####CORNELIUS LABORATORYCLIA [id number] [place] [id number] [facility] (RBC) [Entitic vol]84.5 fTWhtagw83.0-100.0Irvine HospitalComment on above:Order Comment: Specimen Type: BLOOD SPECIMENOrdering Facility: [facility] Address:[address] [place], [place] [address]Performed By: #### 77491-5 ####CORNELIUS LABORATORYCLIA [id number] [place] [address] [place] AMERICAMonocytes (Bld) [#/Vol] 0.67 10*3/uLNormal<0.87Irvine HospitalComment on above:Order Comment: Specimen Type: BLOOD SPECIMENOrdering Facility: [facility] Address:[address] [place], [place] [address]Performed By: #### 55652-2 ####CORNELIUS LABORATORYCLIA [id number] [place] [address] [place] AMERICAMonocytes/100 WBC (Bld)7.2 %NormalIrvine HospitalComment on above: Order Comment: Specimen Type: BLOOD SPECIMENOrdering Facility: [facility] Address:[address] [place], [place] [address]Performed By: #### 61447- 8 ####CORNELIUS LABORATORYCLIA [id number] [place] [address] [place] AMERICANeutrophils (Bld) [#/Vol]7.36 10*3/uLNormal1.45-7.50 Irvine HospitalComment on above:Order Comment: Specimen Type: BLOOD SPECIMENOrdering Facility: [facility] Address:[address] [place], [place] [address]Performed By: #### 20665-5 ####CORNELIUS LABORATORYCLIA [id number] [place] [id number] [place] Neutrophils/100 WBC (Bld)79.3 %NormalIrvine HospitalComment on above:Order Comment: Specimen Type: BLOOD SPECIMENOrdering Facility: [facility] Address:[address] [place], [place] [address]Performed By: #### 19174- 8 ####CORNELIUS LABORATORYCLIA [id number] [place] [id number] [place] AMERICANucleated RBC (Bld) [#/Vol]10*3/uLNormal<0.01Fanorthampton state hospital HospitalComment on above:Order Comment: Specimen Type: BLOOD SPECIMENOrdering Facility: [facility] Address:[address] [place], [place] [address]Performed By: #### 19431-0 ####CORNELIUS LABORATORYCLIA [id number] [place] [id number] [place] AMERICANucleated RBC/100 WBC (Bld) [Ratio]0.0 /100 WBCNormalIrvine HospitalComment on above:Order Comment: Specimen Type: BLOOD SPECIMENOrdering Facility: [facility] Address:[address] [place], [place] [address]Performed By: #### 54869-4 ####CORNELIUS LABORATORYCLIA [id number] [place] [address] [place] AMERICAPlatelet mean volume (Bld) [Entitic vol]8.8 fLLow 9.0-12.7Ffederal medical center, devens HospitalComment on above:Order Comment: Specimen Type: BLOOD SPECIMENOrdering Facility: [facility] Address:[address] [place], [place] [address]Performed By: #### 41251-7 ####CORNELIUS LABORATORYCLIA [id number] [place] [id number] [place] Platelets (Bld) [#/Vol]411 10*3/eMDsxy748-056Ihqdquha HospitalComment on above: Order Comment: Specimen Type: BLOOD SPECIMENOrdering Facility: [facility] Address:[address] [place], [place] [address]Performed By: #### 03845- 8 ####CORNELIUS LABORATORYCLIA [id number] [place] [id number] [place] AMERICARBC (Bld) [#/Vol]4.84 10*6/uLNormal3.90-5.20Fanorthampton state hospital HospitalComment on above:Order Comment: Specimen Type: BLOOD SPECIMENOrdering Facility: [facility] Address:[address] [place], [place] [address]Performed By: #### 55588-4 ####CORNELIUS LABORATORYCLIA [id number] [place] [address] [place] AMERICAWBC (Bld) [#/Vol]9.28 10*3/uLNormal3.70-11.00Arbour-Hri HospitalComment on above:Order Comment: Specimen Type: BLOOD SPECIMENOrdering Facility: [facility] Address:[facility] [address] [place], [place] [address]Performed By: #### 78146-6 ####CORNELIUS LABORATORYCLIA [id number] [place] [address] [place] AMERICACONSULTon 36-97-5451PBANDSXEjbkfeRhwyhmzr HospitalCT ABD/PEL W IVCONon 64-93-5310RW ABD/PEL W IVCONNormalIrvine HospitalColor Auto (U)on 08-31-2023 Color (U)YellowFayette County Memorial HospitalComprehensive metabolic 2000 panelon 19-93-2215Hbptugb [Mass/Vol]4.6 g/dLNormal3.9-4.9[facility] Comment on above:Order Comment: Specimen Type: BLOOD SPECIMENOrdering Facility: [facility] Address:[facility] [place] [address] Performed By: #### 94360-2, 2777-1, 35853-5 ####CORNELIUS LABORATORYCLIA [id number] [place] [address] [place] AMERICAALP [Catalytic activity/Vol]351 U/GDqnk74-981Bbcovxze HospitalComment on above:Order Comment: Specimen Type: BLOOD SPECIMENOrdering Facility: [facility] Address:[facility] [address] [address]Performed By: #### 44133- 9, 2777-1, 74095-6 ####CORNELIUS LABORATORYCLIA [id number] [place] [address] [place] AMERICAALT [Catalytic activity/Vol]178 U/L High7-38Irvine HospitalComment on above:Order Comment: Specimen Type: BLOOD SPECIMENOrdering Facility: [facility] Address:[address] [place], [place] [address]Performed By: #### 56513-9, 2776-07, 73724-6 ####CORNELIUS LABORATORYCLIA [id number] [place] [address] [place] AMERICAAnion gap [Moles/Vol]19 mmol/LHigh9-18Ffederal medical center, devens HospitalComment on above: Order Comment: Specimen Type: BLOOD SPECIMENOrdering Facility: [facility] Address:[address] [place], [place] [address]Performed By: #### 24401- 9, 2776-07, 12061-2 ####CORNELIUS LABORATORYCLIA [id number] [place] [address] [place] AMERICAAST [Catalytic activity/Vol]83 U/L Exge62-59Glnyridh HospitalComment on above:Order Comment: Specimen Type: BLOOD SPECIMENOrdering Facility: [facility] Address:[address] [place], [place] [address]Performed By: #### 66970-9, 2776-07, 99194-5 ####CORNELIUS LABORATORYCLIA [id number] [place] [id number] [place] AMERICABilirubin [Mass/Vol]0.5 mg/dLNormal0.2-1.3Ffederal medical center, devens HospitalComment on above:Order Comment: Specimen Type: BLOOD SPECIMENOrdering Facility: [facility] Address:[address] [place], [place] [address]Performed By: #### 73350-5, 2776-07, 15720-3 ####CORNELIUS LABORATORYCLIA [id number] [place] [address] [place] AMERICACalcium [Mass/Vol]10.0 mg/dL Normal8.5-10.2Ffederal medical center, devens HospitalComment on above:Order Comment: Specimen Type: BLOOD SPECIMENOrdering Facility: [facility] Address:[address] [place], [place] [address]Performed By: #### 35766-5, 2776-, 00613-9 ####CORNELIUS LABORATORYCLIA [id number] [place] [address] [place] AMERICAChloride [Moles/Vol]85 mmol/WWqo78-328Ueucvswv Hospital Comment on above:Order Comment: Specimen Type: BLOOD SPECIMENOrdering Facility: [facility] Address:[address] [place] [address] Performed By: #### 50640-6, 2777-1, 24147-1 ####CORNELIUS LABORATORYCLIA [id number] [place] [address] [place] AMERICACO2 [Moles/Vol]21 mmol/MXgu18-84Yndkscwd HospitalComment on above:Order Comment: Specimen Type: BLOOD SPECIMENOrdering Facility: [facility] Address:[address] [place], [place] [address]Performed By: #### 55571-4, 2777-1, 30788-3 ####CORNELIUS LABORATORYCLIA [id number] [place] [address] [place] AMERICACreatinine [Mass/Vol]1.34 mg/dLHigh0.58-0.96 Ar[facility]-Hri HospitalComment on above:Order Comment: Specimen Type: BLOOD SPECIMENOrdering Facility: [facility] Address:[address] [place], [place] [address]Performed By: #### 64802-6, 2777-1, 95310-9 ####[facility] LABORATORYCLIA [id number] [place] [id number] [place] AMERICACreatinine and Glomerular filtration rate.predicted panel (S/P/Bld)43 mL/min/1.73m???Low>=60FaChelsea Memorial HospitalComment on above:Order Comment: Specimen Type: BLOOD SPECIMENOrdering Facility: [facility] Address:[address] [place], [place] [address]Result Comment: Estimated Glomerular Filtration Rate (eGFR) is calculated using the 2020 CKD-EPI creatinine equation. This equation utilizes serum creatinine, sex, and age as parameters. The creatinine assay has traceable calibration to isotope dilution-mass spectrometry. Refer to KDIGO guidelines for clinical interpretation. In patients with unstable renal function, e.g. those with acute kidney injury, the eGFR may not accurately reflect actual GFR.Performed By: #### 22593-8, 2777-1, 03531-4 ####CORNELIUS LABORATORYCLIA [id number] [place] [address] [place] AMERICAGlucose [Mass/Vol]159 mg/kWPcxu96-35Adqdjixn HospitalComment on above: Order Comment: Specimen Type: BLOOD SPECIMENOrdering Facility: [facility] Address:[address] [place], [place] [address]Result Comment: The [place]ron[place] Diabetes Association (ADA) provides guidance for cutoff [...] Standards of Medical Care in Diabetes 2016, [place] Diabetes Association. Diabetes Care. 2016.39(Suppl 1).Performed By: #### 87181-7, 2777-, 98351-7 ####CORNELIUS LABORATORYCLIA [id number] [place] [address] [place] AMERICAPotassium [Moles/Vol]4.2 mmol/LNormal3.7-5.1Ffederal medical center, devens HospitalComment on above:Order Comment: Specimen Type: BLOOD SPECIMENOrdering Facility: [facility] Address:[address] [place], [place] [address]Wlthcdnoe By: #### 84133-6, 2777-, 28669-0 ####CORNELIUS LABORATORYCLIA [id number] [place] [address] [place] AMERICAProtein [Mass/Vol]7.4 g/dL Normal6.3-8.0FaChelsea Memorial HospitalComment on above:Order Comment: Specimen Type: BLOOD SPECIMENOrdering Facility: [facility] Address:[address] [place], [place] [address]Performed By: #### 83716-2, 2777-1, 71669-1 ####CORNELIUS LABORATORYCLIA [id number] [place] [address] [place] AMERICASodium [Moles/Vol]125 mmol/QFgu033-047Lijytdvo Hospital Comment on above:Order Comment: Specimen Type: BLOOD SPECIMENOrdering Facility: [facility] Address:[address] [place] [address] Performed By: #### 42367-6, 2777-1, 51229-2 ####CORNELIUS LABORATORYCLIA [id number] [place] [address] [place] AMERICAUrea nitrogen [Mass/Vol]35 mg/dLBraxton County Memorial Hospital7-21Arbour-Hri HospitalComment on above:Order Comment: Specimen Type: BLOOD SPECIMENOrdering Facility: [facility] Address:[address] [place], [place] [address]Performed By: #### 59029- 9, 2777-1, 37828-6 ####CORNELIUS LABORATORYCLIA [id number] [place] [id number] [place] OF AMERICAECG COMPLETEon 05-14-8237FLL COMPLETENormalFairchillicothe hospital HospitalED NOTEon 08-96-7809IH NOTEHNO ID: [id number] Author: LYUBOV PEREA RN Service: ? Author Type: Registered Nurse Type: ED Notes Filed: 08/31/2023 12:07 Note Text: Report given to KAYA Monsalve.NormalFanorthampton state hospital HospitalED NOTEHNO ID: [id number] Author: DANNIELLE MOLINA RN Service: ? Author Type: Registered Nurse Type: ED Notes Filed: 08/31/2023 09:15 Note Text: Bed: 25-ED Expected date: Expected time: Means of arrival: Comments: triageNormalFairview HospitalED PROV NOTEon 64-69-9805EW PROV NOTENormalFairview HospitalEosinophils/100 WBC Auto (Bld)on 55-82-1143Zfmvnjlkdnc/100 WBC (Bld)1.0 %Parkwood HospitalErythrocyte distribution width Auto (RBC) [Ratio]on 64-66-9713Zhghtkzfcnc distribution width (RBC) [Ratio]14.6 %11.5-15.0 Parkwood HospitalHISTORY PHYSICALon 01-10-5432CXEPQJD PHYSICAL NormalArbour-Hri HospitalHematocrit Auto (Bld) [Volume fraction]on 08-31-2023 Hematocrit (Bld) [Volume fraction]40.9 %36.0-46.0Parkwood HospitalHemoglobin [Mass/volume] in Bloodon 55-77-0709Njbwjjvykf (Bld) [Mass/Vol] 14.4 g/dL11.5-15.5FMcCullough-Hyde Memorial HospitalKetones Auto test strip (U) [Mass/Vol]on 63-96-1090Yncpvtu (U) [Mass/Vol]NegativeNegative, TraceParkwood HospitalLaboratory - Chemistry and Chemistry - challengeon 66-55-1780Mziaksa [Mass/Vol]4.6 g/dL3.9-4.9Park[facility] HospitalALP [Catalytic activity/Vol]351 U/R65-085UtiedfxfrParkwood HospitalALT [Catalytic activity/Vol]178 U/L7-38Parkwood HospitalAST [Catalytic activity/Vol]83 U/K62-80DgjvfphzuParkwood HospitalBilirubin [Mass/Vol]0.5 mg/dL0.2-1.3FMcCullough-Hyde Memorial HospitalCalcium [Mass/Vol] 10.0 mg/dL8.5-10.2FMcCullough-Hyde Memorial HospitalChloride [Moles/Vol]85 mmol/L 97-105Parkwood HospitalCO2 [Moles/Vol]21 mmol/O32-23GhlsdevpzParkwood HospitalCreatinine [Mass/Vol]1.34 mg/dL0.58-0.96Parkwood HospitalGlucose [Mass/Vol]159 mg/mY89-67AlszifwppParkwood HospitalComment on above:The [place]ron[place] Diabetes Association (ADA) provides guidance for cutoff [...] diabetes.Reference: Standardsof Medical Care in Diabetes 2016, [place] Diabetes Association. Diabetes Care. 2016.39(Suppl 1).Magnesium [Mass/Vol]1.6 mg/dL 1.7-2.3FMcCullough-Hyde Memorial HospitalPotassium [Moles/Vol]4.2 mmol/L3.7-5.1 [facility] HospitalProtein [Mass/Vol]7.4 g/dL6.3-8.0[facility]orial Health Systemodium [Moles/Vol]125 mmol/P432-733BaamollycParkwood HospitalUrea nitrogen [Mass/Vol]35 mg/dL7-21Parkwood HospitalLaboratory - Hematology and Cell countson 08-12-1399Lutmzlhwass (Bld) [#/Vol]0.09 10*3/uL<0.46Park[facility] HospitalImmature granulocytes (Bld) [#/Vol]0.08 10*3/uL<0.10[facility] granulocytes/100 WBC (Bld)0.9 %Parkwood HospitalLeukocytes [#/volume] corrected for nucleated erythrocytes in Blood by Automated counon 01-24-4157GCB corrected for nucl RBC Auto (Bld) [#/Vol]9.28 k/uL3.70-11.00 Park[facility] HospitalLymphocytes Auto (Bld) [#/Vol]on 08-31-2023 Lymphocytes (Bld) [#/Vol]1.06 10*3/uL1.00-4.00[facility] Lymphocytes/100 WBC Auto (Bld)on 85-09-5507Uqruadvnxug/100 WBC (Bld)11.4 % [facility] Auto (RBC) [Entitic mass]on 34-67-8090JYO (RBC) [Entitic mass]29.8 pg26.0-34.0Parkwood HospitalMCHC Auto (RBC) [Mass/Vol]on 41-16-7712DVWW (RBC) [Mass/Vol]35.2 g/dL30.5-36.0Parkwood HospitalMCV Auto (RBC) [Entitic vol]on 92-88-5350RWE (RBC) [Entitic vol]84.5 fL80.0-100.0Parkwood HospitalMagnesium SerPl-mCncon 18-79-2486Tejiisymg [Mass/Vol]1.6 mg/dLLow1.7-2.3FBerkshire Medical Center Comment on above:Order Comment: Specimen Type: BLOOD SPECIMENOrdering Facility: [facility] Address:[address] [place] [address] Performed By: #### 50905-0, 2777-1, 49640-6 ####CORNELIUS LABORATORYCLIA [id number] [place] [address] [place] Monocytes Auto (Bld) [#/Vol]on 74-95-6403Phuatsnmh (Bld) [#/Vol]0.67 10*3/uL <0.87Parkwood HospitalMonocytes/100 WBC Auto (Bld)on 08-31-2023 Monocytes/100 WBC (Bld)7.2 %[facility] HospitalNURSING PROGon 68-64-8734PEUXNSU [facility] CenterNURSING [facility] Neutrophils Auto (Bld) [#/Vol]on 48-30-8448Bzyajitlspi (Bld) [#/Vol]7.36 10*3/uL 1.45-7.50Parkwood HospitalNeutrophils/100 WBC Auto (Bld)on 88-47-8937Xjuyidqupvk/100 WBC (Bld)79.3 %[facility] HospitalNo Panel Informationon 06-75-7100Uffxemdml GFR (CKD-EPI)43 mL/min/1.73m???>=60 Parkwood HospitalComment on above:Estimated Glomerular Filtration Rate (eGFR) is calculated using the 2020 CKD-EPI creatinine equation. This equation utilizes serum creatinine, sex, and age as parameters. The creatinine assay has traceable calibration to isotope dilution-mass spectrometry. Refer to KDIGO guidelines for clinical interpretation. In patients with unstable renal function, e.g. those with acute kidney injury, the eGFRmay not accurately reflect actual GFR.Phosphorus Level4.3 mg/dL2.7-4.8Parkwood HospitalNucleated RBC Auto (Bld) [#/Vol]on 31-79-4428Ebsxxzcyf RBC (Bld) [#/Vol]10*3/uL<0.01Parkwood HospitalNucleated erythrocytes [Presence] in Blood by Automated counton 55-81-0292Uerwxdeex RBC Auto Ql (Bld)0.0 /100{WBC}Parkwood HospitalPhosphate SerPl-mCnc on 91-77-9947Dzbxzhaft [Mass/Vol]4.3 mg/dLNormal2.7-4.8FaChelsea Memorial HospitalComment on above:Order Comment: Specimen Type: BLOOD SPECIMENOrdering Facility: [facility] Address:[address] [place] [address] Performed By: #### 83813-9, 2777-1, 40056-4 ####[facility] LABORATORYCLIA [id number] [place] [address] [place] Platelet mean volume Auto (Bld) [Entitic vol]on 13-54-5417Izfugmel mean volume (Bld) [Entitic vol]8.8 fL9.0-12.7FMcCullough-Hyde Memorial HospitalPlatelets Auto (Bld) [#/Vol]on 87-21-1822Zphdmwabm (Bld) [#/Vol]411 10*3/vW291-383WsysgdzqqParkwood HospitalProtein Auto test strip (U) [Mass/Vol]on 08-31-2023 Protein (U) [Mass/Vol]TraceTrace, NegativeParkwood HospitalRBC Auto (Bld) [#/Vol]on 78-00-3686QQL (Bld) [#/Vol]4.84 10*6/uL3.90-5.20[facility]orial Health Systemerum or plasma anion gap determinationon 03-99-6463Kuyic gap [Moles/Vol]19 mmol/L9-18FOhioHealth Riverside Methodist Hospitalpecific gravity Auto test strip (U) [Rel density]on 18-52-7061Wmyspdox gravity (U) [Rel density] [facility] CenterURINALYSIS, REFLEX MICROSCOPICon 95-16-8378Gaazaiyw LM.HPF (Urine sed) [#/Area]RareAbnormalNone SeenIrvine HospitalComment on above:Order Comment: Specimen Type: URINE SPECIMENOrdering Facility: [facility] Address:[address] [place], [place] [address]Performed By: #### [id number] ####[facility] LABORATORYCLIA [id number] [place] [address] [place] AMERICABilirubin Ql (U) NegativeNormalNegativeIrvine HospitalComment on above:Order Comment: Specimen Type: URINE SPECIMENOrdering Facility: [facility] Address:[address] [place], [place] [address]Performed By: #### [id number] ####[facility] LABORATORYCLIA [id number] [place] [address] [place] AMERICAClarity (Unsp spec)ClearNormalClearIrvine HospitalComment on above: Order Comment: Specimen Type: URINE SPECIMENOrdering Facility: [facility] Address:[address] [place], [place] [address]Performed By: #### [id number] ####[facility] LABORATORYCLIA [id number] [address] STATES OF WAYNE HOSPITALColor (U)YellowNormalYellowIrvine Hospital Comment on above:Order Comment: Specimen Type: URINE SPECIMENOrdering Facility: [facility] Address:[address] [place] [address] Performed By: #### [id number] ####CORNELIUS LABORATORYCLIA [id number] [place] [address] [place] OF AMERICAEpithelial cells LM.HPF (Urine sed) [#/Area]FewNormalFanorthampton state hospital HospitalComment on above:Order Comment: Specimen Type: URINE SPECIMENOrdering Facility: [facility] Address:[address] [place], [place] [address]Performed By: #### [id number] ####CORNELIUS LABORATORYCLIA [id number] [place] [address] [place] OF AMERICAGlucose Test strip (U) [Mass/Vol]NegativeNormalTrace, NegativeFairchillicothe hospital HospitalComment on above:Order Comment: Specimen Type: URINE SPECIMENOrdering Facility: [facility] Address:[address] [place], [place] [address]Performed By: #### [id number] ####CORNELIUS LABORATORYCLIA [id number] [place] [address] [place] OF AMERICAHemoglobin Ql (U)Trace NormalNegative, TraceFanorthampton state hospital HospitalComment on above:Order Comment: Specimen Type: URINE SPECIMENOrdering Facility: [facility] Address:[address] [place], [place] [address]Performed By: #### [id number] ####CORNELIUS LABORATORYCLIA [id number] [place] [address] [place] OF WAYNE HOSPITALHyaline casts (Urine sed) [#/Area]4-10 /LPFAbnormal0 /LPFFfederal medical center, devens HospitalComment on above:Order Comment: Specimen Type: URINE SPECIMENOrdering Facility: [facility] Address:[address] [place], [place] [address]Performed By: #### [id number] ####CORNELIUS LABORATORYCLIA [id number] [place] [address] [place] WAYNE HOSPITALKetones Ql (U)Negative NormalNegative, TraceIrvine HospitalComment on above:Order Comment: Specimen Type: URINE SPECIMENOrdering Facility: [facility] Address:[address] [place], [place] [address]Performed By: #### [id number] ####CORNELIUS LABORATORYCLIA [id number] [address] STATES OF AMERICALeukocyte esterase Test strip Ql (U)NegativeNormalNegative, 25 Melody/uL [facility] HospitalComment on above:Order Comment: Specimen Type: URINE SPECIMENOrdering Facility: [facility] Address:[address] [place], [place] [address]Performed By: #### [id number] ####CORNELIUS LABORATORYCLIA [id number] [address] CLARE'S HOSPITALitrite Ql (U)NegativeNormalNegativeFanorthampton state hospital HospitalComment on above:Order Comment: Specimen Type: URINE SPECIMENOrdering Facility: [facility] Address:[address] [place], [place] [address]Performed By: #### [id number] ####CORNELIUS LABORATORYCLIA [id number] [place] [id number] [place] [facility] HOSPITALpH (U)6.0 [pH]Normal5.0-8.0Fanorthampton state hospital HospitalComment on above:Order Comment: Specimen Type: URINE SPECIMENOrdering Facility: [facility] Address:[address] [place], [place] [address]Performed By: #### [id number] ####CORNELIUS LABORATORYCLIA [id number] [place] [address] [place] [facility] HOSPITALProtein (U) [Mass/Vol]TraceNormalTrace, Negative [facility] HospitalComment on above:Order Comment: Specimen Type: URINE SPECIMENOrdering Facility: [facility] Address:[address] [place], [place] [address]Performed By: #### [id number] ####CORNELIUS LABORATORYCLIA [id number] [place] [id number] [facility] LM.HPF (Urine sed) [#/Area]3-5 /HPFAbnormal0-3 /HPFFanorthampton state hospital HospitalComment on above:Order Comment: Specimen Type: URINE SPECIMENOrdering Facility: [facility] Address:[address] [place], [place] [address]Performed By: #### [id number] ####CORNELIUS LABORATORYCLIA [id number] [place] [id number] [place] AMERICASpecific gravity (U) [Rel density]>1.050High 1.005-1.030Fanorthampton state hospital HospitalComment on above:Order Comment: Specimen Type: URINE SPECIMENOrdering Facility: [facility] Address:[address] [place], [place] [address]Performed By: #### [id number] ####CORNELIUS LABORATORYCLIA [id number] [address] STATES [facility] Urobilinogen Ql (U)NormalNormalNormalFanorthampton state hospital HospitalComment on above:Order Comment: Specimen Type: URINE SPECIMENOrdering Facility: [facility] Address:[address] [place], [place] [address]Performed By: #### [id number] ####CORNELIUS LABORATORYCLIA [id number] [address] STATES OF AMERICAWBC LM.HPF (Urine sed) [#/Area]0-5 /HPFNormal0-5 /HPFFanorthampton state hospital HospitalComment on above:Order Comment: Specimen Type: URINE SPECIMENOrdering Facility: [facility] Address:[address] [place], [place] [address]Performed By: #### [id number] ####CORNELIUS LABORATORYCLIA [id number] [address]Urine bacteria detection by automated methodon 13-02-2776Sjquqnur Auto Ql (U)Rare [HPF]None SeenParkwood HospitalUrine glucose measurement by test strip (mass/volume)on 59-02-5067Zuwsjry Test strip (U) [Mass/Vol]NegativeTrace, NegativeParkwood HospitalUrine hemoglobin detection by automated test stripon 45-00-9162Tfzeewahua Auto test strip Ql (U)TraceNegative, TraceParkwood HospitalUrine nitrite detection by automated test stripon 56-47-2098Vfsthdh Auto test strip Ql (U)NegativeNegativeParkwood HospitalUrine sediment leukocyte count by microscopy (number/high power field)on 19-98-6676OSR LM.HPF (Urine sed) [#/Area]0-5 /HPF0-5 /HPF Parkwood HospitalUrobilinogen Auto test strip (U) [Mass/Vol]on 13-20-7939Akgctbjfgpzp (U) [Mass/Vol]NormalNormGalion HospitalXR ABDOMEN 1V SUPINEon 28-93-2638EM ABDOMEN 1V SUPINENormalFanorthampton state hospital HospitalpH Auto test strip (U)on 64-39-3771xC (U)6.0 [pH]5.0-8.0Park[facility] HospitalBasic metabolic 2000 panelon 61-76-4089Mxcot gap [Moles/Vol]10 mmol/LNormal9-18Ffederal medical center, devens HospitalComment on above:Order Comment: Specimen Type: BLOOD SPECIMENOrdering Facility: [facility] Address:[address] [place], [place] [address]Performed By: #### 30629-6 ####CORNELIUS LABORATORYCLIA [id number] [place] [address] [place] AMERICACalcium [Mass/Vol]9.5 mg/dLNormal8.5-10.2Ffederal medical center, devens HospitalComment on above:Order Comment: Specimen Type: BLOOD SPECIMENOrdering Facility: [facility] Address:[address] [place], [place] [address]Performed By: #### 29673-1 ####CORNELIUS LABORATORYCLIA [id number] [place] [id number] [place] OF AMERICAChloride [Moles/Vol]100 mmol/MBadqzf55-502Bidguubu HospitalComment on above:Order Comment: Specimen Type: BLOOD SPECIMENOrdering Facility: [facility] Address:[address] [place], [place] [address]Performed By: #### 41640-1 ####CORNELIUS LABORATORYCLIA [id number] [place] [id number] [place] OF AMERICACO2 [Moles/Vol]24 mmol/HHcmfrs12-22Ylpgsexm HospitalComment on above: Order Comment: Specimen Type: BLOOD SPECIMENOrdering Facility: [facility] Address:[address] [place], [place] [address]Performed By: #### 94421- 2 ####CORNELIUS LABORATORYCLIA [id number] [place] [address] [place] AMERICACreatinine [Mass/Vol]0.63 mg/dLNormal0.58-0.96Fanorthampton state hospital HospitalComment on above:Order Comment: Specimen Type: BLOOD SPECIMENOrdering Facility: [facility] Address:[address] [place], [place] [address]Performed By: #### 88097-7 ####[facility] LABORATORYCLIA [id number] [place] [id number] [place] OF AMERICACreatinine and Glomerular filtration rate.predicted panel (S/P/Bld)96 mL/min/1.73m???Normal>=60 [facility] on above:Order Comment: Specimen Type: BLOOD SPECIMENOrdering Facility: [facility] Address:[address] [place], [place] [address]Result Comment: Estimated Glomerular Filtration Rate (eGFR) is calculated using the 2020 CKD-EPI creatinine equation. This equation utilizes serum creatinine, sex, and age as parameters. The creatinine assay has traceable calibration to isotope dilution-mass spectrometry. Refer to KDIGO guidelines for clinical interpretation. In patients with unstable renal function, e.g. those with acute kidney injury, the eGFR may not accurately reflect actual GFR.Performed By: #### 39293-2 ####[facility] LABORATORYCLIA [id number] [place] [id number] [place] OF AMERICAGlucose [Mass/Vol]119 mg/qOBbpa15-06Vwzlzevb HospitalCombeaumont hospital on above:Order Comment: Specimen Type: BLOOD SPECIMENOrdering Facility: [facility] Address:[address] [place], [place] [address]Result Comment: The [place]ron[place] Diabetes Association (ADA) provides guidance for cutoff [...] Standards of Medical Care in Diabetes 2016, [place] Diabetes Association. Diabetes Care. 2016.39(Suppl 1). Performed By: #### 19116-2 ####[facility] LABORATORYCLIA [id number] [place] [id number] [place] OF AMERICAPotassium [Moles/Vol]4.2 mmol/LNormal3.7-5.1Ffederal medical center, devens HospitalComment on above:Order Comment: Specimen Type: BLOOD SPECIMENOrdering Facility: [facility] Address:[address] [place], [place] [address]Performed By: #### 79961-5 ####CORNELIUS LABORATORYCLIA [id number] [place] [address] [place] AMERICASodium [Moles/Vol]134 mmol/KTfg923-883Obxmwmkp HospitalComment on above: Order Comment: Specimen Type: BLOOD SPECIMENOrdering Facility: [facility] Address:[address] [place], [place] [address]Performed By: #### 06598- 2 ####CORNELIUS LABORATORYCLIA [id number] [place] [address] [place] AMERICAUrea nitrogen [Mass/Vol]21 mg/dLNormal-Irvine HospitalComment on above:Order Comment: Specimen Type: BLOOD SPECIMENOrdering Facility: [facility] Address:[address] [place], [place] [address]Performed By: #### 57374-9 ####CORNELIUS LABORATORYCLIA [id number] [place] [address] [place] AMERICABasophils Auto (Bld) [#/Vol]on 24-04-0494Rwzgxeqmv (Bld) [#/Vol]0.03 10*3/uL<0.11Parkwood HospitalBasophils/100 WBC Auto (Bld)on 86-28-4779Roqshdpsj/100 WBC (Bld) 0.4 %Parkwood HospitalBlood manual differential comment interpretation narrativeon 54-90-7465Yncbkv differential comment Ankush (Bld) [Interp]AutoParkwood HospitalCASE MANAGEMon 07-56-9019EKMV MANAGEMNormalFaWaltham Hospital W Auto Differential panel (Bld)on 08-30-2023 Basophils (Bld) [#/Vol]0.03 10*3/uLNormal<0.11[facility]vine HospitalComment on above: Order Comment: Specimen Type: BLOOD SPECIMENOrdering Facility: [facility] Address:[address] [place], [place] [address]Performed By: #### 28068- 8 ####CORNELIUS LABORATORYCLIA [id number] [place] [id number] [place] OF AMERICABasophils/100 WBC (Bld)0.4 %[facility] Comment on above:Order Comment: Specimen Type: BLOOD SPECIMENOrdering Facility: [facility] Address:[address] [place] [address] Performed By: #### 57417-3 ####CORNELIUS LABORATORYCLIA [id number] [place] [id number] [place] OF AMERICADifferential cell count method Nom (Bld)AutoNormalArbour-Hri HospitalComment on above:Order Comment: Specimen Type: BLOOD SPECIMENOrdering Facility: [facility] Address:[address] [place], [place] [address]Performed By: #### 63552-4 ####CORNELIUS LABORATORYCLIA [id number] [place] [address] [place] AMERICAEosinophils (Bld) [#/Vol]0.46 10*3/uLHigh<0.46Arbour-Hri HospitalComment on above:Order Comment: Specimen Type: BLOOD SPECIMENOrdering Facility: [facility] Address:[address] [place] [address] Performed By: #### 83099-5 ####CORNELIUS LABORATORYCLIA [id number] [place] [id number] [place] AMERICAEosinophils/100 WBC (Bld)6.5 % NormalArbour-Hri HospitalComment on above:Order Comment: Specimen Type: BLOOD SPECIMENOrdering Facility: [facility] Address:[address] [place], [place] [address]Performed By: #### 66577-6 ####CORNELIUS LABORATORYCLIA [id number] [place] [id number] [place] VIVEK Erythrocyte distribution width (RBC) [Ratio]15.1 %High11.5-15.0FaChelsea Memorial Hospital Comment on above:Order Comment: Specimen Type: BLOOD SPECIMENOrdering Facility: [facility] Address:[address] [place] [address] Performed By: #### 57760-2 ####CORNELIUS LABORATORYCLIA [id number] [place] [id number] [place] OF AMERICAHematocrit (Bld) [Volume fraction]37.5 %Bltwnm40.0-46.0Fanorthampton state hospital HospitalComment on above:Order Comment: Specimen Type: BLOOD SPECIMENOrdering Facility: [facility] Address:[address] [place], [place] [address]Performed By: #### 07134-1 ####CORNELIUS LABORATORYCLIA [id number] [place] [id number] [place] AMERICAHemoglobin (Bld) [Mass/Vol]12.6 g/sYOtlcwl43.5-15.5 [facility]-Hri HospitalComment on above:Order Comment: Specimen Type: BLOOD SPECIMENOrdering Facility: [facility] Address:[address] [place], [place] [address]Performed By: #### 52587-0 ####CORNELIUS LABORATORYCLIA [id number] [place] [id number] [place] Immature granulocytes (Bld) [#/Vol]0.03 10*3/uLNormal<0.10[facility] Comment on above:Order Comment: Specimen Type: BLOOD SPECIMENOrdering Facility: [facility] Address:[address] [place] [address] Performed By: #### 04170-4 ####CORNELIUS LABORATORYCLIA [id number] [place] [id number] [place] OF AMERICAImmature granulocytes/100 WBC (Bld)0.4 %NormalFanorthampton state hospital HospitalComment on above:Order Comment: Specimen Type: BLOOD SPECIMENOrdering Facility: [facility] Address:[address] [place], [place] [address]Performed By: #### 05753-7 ####CORNELIUS LABORATORYCLIA [id number] [place] [id number] [place] Lymphocytes (Bld) [#/Vol]1.01 10*3/uLNormal1.00-4.00Fanorthampton state hospital HospitalComment on above:Order Comment: Specimen Type: BLOOD SPECIMENOrdering Facility: [facility] Address:[address] [place], [place] [address]Performed By: #### 74084-4 ####CORNELIUS LABORATORYCLIA [id number] [place] [address] [facility]ITALLymphocytes/100 WBC (Bld)14.2 %NormalIrvine HospitalComment on above:Order Comment: Specimen Type: BLOOD SPECIMENOrdering Facility: [facility] Address:[address] [place], [place] [address]Performed By: #### 11008-0 ####CORNELIUS LABORATORYCLIA [id number] [address] (RBC) [Entitic mass]29.6 xjJydqxz93.0-34.0Irvine HospitalComment on above:Order Comment: Specimen Type: BLOOD SPECIMENOrdering Facility: [facility] Address:[address] [place], [place] [address]Performed By: #### 21720-7 ####CORNELIUS LABORATORYCLIA [id number] [address] (RBC) [Mass/Vol]33.6 g/pVBzhoeg88.5-36.0Irvine HospitalComment on above:Order Comment: Specimen Type: BLOOD SPECIMENOrdering Facility: [facility] Address:[address] [place], [place] [address]Performed By: #### 52120-7 ####CORNELIUS LABORATORYCLIA [id number] [place] [address] [facility] (RBC) [Entitic vol] 88.0 oYNxcjwi66.0-100.0Fanorthampton state hospital HospitalComment on above:Order Comment: Specimen Type: BLOOD SPECIMENOrdering Facility: [facility] Address:[address] [place], [place] [address]Performed By: #### 30846-6 ####CORNELIUS LABORATORYCLIA [id number] [place] [id number] [place] AMERICAMonocytes (Bld) [#/Vol]0.70 10*3/uLNormal<0.87Fanorthampton state hospital HospitalComment on above:Order Comment: Specimen Type: BLOOD SPECIMENOrdering Facility: [facility] Address:[address] [place], [place] [address]Performed By: #### 43943-7 ####CORNELIUS LABORATORYCLIA [id number] [place] [id number] [place] AMERICAMonocytes/100 WBC (Bld)9.8 %NormalIrvine HospitalComment on above:Order Comment: Specimen Type: BLOOD SPECIMENOrdering Facility: [facility] Address:[address] [place], [place] [address]Performed By: #### 40605-2 ####CORNELIUS LABORATORYCLIA [id number] [place] [id number] [place] AMERICANeutrophils (Bld) [#/Vol]4.89 10*3/uLNormal1.45-7.50Fanorthampton state hospital HospitalComment on above:Order Comment: Specimen Type: BLOOD SPECIMENOrdering Facility: [facility] Address:[address] [place], [place] [address]Performed By: #### 07577- 8 ####CORNELIUS LABORATORYCLIA [id number] [place] [id number] [place] AMERICANeutrophils/100 WBC (Bld)68.7 %NormalIrvine Hospital Comment on above:Order Comment: Specimen Type: BLOOD SPECIMENOrdering Facility: [facility] Address:[address] [place] [address] Performed By: #### 71750-6 ####CORNELIUS LABORATORYCLIA [id number] [place] [id number] [place] OF AMERICANucleated RBC (Bld) [#/Vol] 10*3/uLNormal<0.01Fanorthampton state hospital HospitalComment on above:Order Comment: Specimen Type: BLOOD SPECIMENOrdering Facility: [facility] Address:[address] [place], [place] [address]Performed By: #### 25307-7 ####CORNELIUS LABORATORYCLIA [id number] [place] [id number] [place] OF AMERICANucleated RBC/100 WBC (Bld) [Ratio]0.0 /100 WBCNoalIrvine Hospital Comment on above:Order Comment: Specimen Type: BLOOD SPECIMENOrdering Facility: [facility] Address:[address] [place] [address] Performed By: #### 90003-8 ####CORNELIUS LABORATORYCLIA [id number] [place] [id number] [place] AMERICAPlatelet mean volume (Bld) [Entitic vol]8.9 fLLow9.0-12.7Ffederal medical center, devens HospitalComment on above:Order Comment: Specimen Type: BLOOD SPECIMENOrdering Facility: [facility] Address:[address] [place], [place] [address]Performed By: #### 73374-2 ####CORNELIUS LABORATORYCLIA [id number] [place] [address] [place] AMERICAPlatelets (Bld) [#/Vol]313 10*3/fBCfqibl476-919Laqhcdca HospitalComment on above:Order Comment: Specimen Type: BLOOD SPECIMENOrdering Facility: [facility] Address:[address] [place], [place] [address]Performed By: #### 12108-5 ####CORNELIUS LABORATORYCLIA [id number] [place] [id number] [place] AMERICARBC (Bld) [#/Vol]4.26 10*6/uLNormal3.90-5.20Fanorthampton state hospital HospitalComment on above:Order Comment: Specimen Type: BLOOD SPECIMENOrdering Facility: [facility] Address:[address] [place], [place] [address]Performed By: #### 32505-0 ####CORNELIUS LABORATORYCLIA [id number] [place] [id number] [place] OF AMERICAWBC (Bld) [#/Vol]7.12 10*3/uLNormal3.70-11.00Faview HospitalComment on above:Order Comment: Specimen Type: BLOOD SPECIMENOrdering Facility: [facility] Address:[address] [place], [place] [address]Performed By: #### 67531-6 ####CORNELIUS LABORATORYCLIA [id number] [place] [address] [place] AMERICACNDSon 62-26-6937GKZWSblvybGnrpkfrb Hospital Eosinophils/100 WBC Auto (Bld)on 31-52-5536Ydfezdhyswa/100 WBC (Bld)6.5 % Parkwood HospitalErythrocyte distribution width Auto (RBC) [Ratio]on 26-46-0977Tmhspoclraa distribution width (RBC) [Ratio]15.1 %11.5-15.0 [facility] HospitalHematocrit Auto (Bld) [Volume fraction]on 54-57-8779Khcqewflrs (Bld) [Volume fraction]37.5 %36.0-46.0[facility] HospitalHemoglobin [Mass/volume] in Bloodon 44-82-4465Pbxzyzpvfn (Bld) [Mass/Vol]12.6 g/dL11.5-15.5FMcCullough-Hyde Memorial HospitalLaboratory - Chemistry and Chemistry - challengeon 34-52-4984Jcfapko [Mass/Vol]9.5 mg/dL 8.5-10.2FMcCullough-Hyde Memorial HospitalChloride [Moles/Vol]100 mmol/L97-105 [facility] HospitalCO2 [Moles/Vol]24 mmol/A25-28FpidatjteParkwood HospitalCreatinine [Mass/Vol]0.63 mg/dL0.58-0.96Park[facility] HospitalGlucose [Mass/Vol]119 mg/gW86-03LkmpowwinParkwood Hospital Comment on above:The [place] Diabetes Association (ADA) provides guidance for cutoff [...] diabetes.Reference: Standardsof Medical Care in Diabetes 2016, [place] Diabetes Association. Diabetes Care. 2016.39(Suppl 1).Potassium [Moles/Vol]4.2 mmol/L3.7-5.1FOhioHealth Riverside Methodist Hospitalodium [Moles/Vol]134 mmol/T770-017WxnglqugqParkwood HospitalUrea nitrogen [Mass/Vol]21 mg/dL7-[facility]wood HospitalLaboratory - Hematology and Cell countson 02-04-7299Qhzqsobfcyb (Bld) [#/Vol]0.46 10*3/uL<0.46Park[facility] HospitalImmature granulocytes (Bld) [#/Vol]0.03 10*3/uL<0.10[facility] HospitalImmature granulocytes/100 WBC (Bld)0.4 %[facility] HospitalLeukocytes [#/volume] corrected for nucleated erythrocytes in Blood by Automated counon 22-75-2917YQA corrected for nucl RBC Auto (Bld) [#/Vol]7.12 k/uL3.70-11.00 [facility] HospitalLymphocytes Auto (Bld) [#/Vol]on 08-30-2023 Lymphocytes (Bld) [#/Vol]1.01 10*3/uL1.00-4.00[facility] Lymphocytes/100 WBC Auto (Bld)on 29-99-2087Vnpxnofurhk/100 WBC (Bld)14.2 % [facility] CenterH Auto (RBC) [Entitic mass]on 23-95-9615AIF (RBC) [Entitic mass]29.6 pg26.0-34.0Parkwood HospitalMCHC Auto (RBC) [Mass/Vol]on 74-88-4040BWQI (RBC) [Mass/Vol]33.6 g/dL30.5-36.0Park[facility] HospitalMCV Auto (RBC) [Entitic vol]on 64-82-0753XNB (RBC) [Entitic vol]88.0 fL80.0-100.0[facility] HospitalMonocytes Auto (Bld) [#/Vol]on 96-42-8116Btearwthh (Bld) [#/Vol]0.70 10*3/uL<0.87[facility] HospitalMonocytes/100 WBC Auto (Bld)on 56-84-3636Kniykvyuf/100 WBC (Bld)9.8 %[facility] HospitalNURSING PROGon 37-32-8126XPSAKGN PROGNormalIrvine HospitalNeutrophils Auto (Bld) [#/Vol]on 08-30-2023 Neutrophils (Bld) [#/Vol]4.89 10*3/uL1.45-7.50[facility] Neutrophils/100 WBC Auto (Bld)on 46-41-9361Xuydydtelfp/100 WBC (Bld)68.7 % [facility] HospitalNo Panel Informationon 62-14-1656Wcvopytpj GFR (CKD-EPI)96 mL/min/1.73m???>=60Parkwood HospitalComment on above:Estimated Glomerular Filtration Rate (eGFR) [...] reflect actual GFR.Nucleated RBC Auto (Bld) [#/Vol]on 45-68-7608Bpfrpwite RBC (Bld) [#/Vol]10*3/uL<0.01Park[facility] HospitalNucleated erythrocytes [Presence] in Blood by Automated counton 70-67-8708Tsedvfhuw RBC Auto Ql (Bld)0.0 /100{WBC}[facility]wood HospitalPlatelet mean volume Auto (Bld) [Entitic vol]on 16-77-5070Pttrjalj mean volume (Bld) [Entitic vol]8.9 fL9.0-12.7FMcCullough-Hyde Memorial Hospital Platelets Auto (Bld) [#/Vol]on 75-75-0369Oldkenlkk (Bld) [#/Vol]313 10*3/uL 150-400Parkwood HospitalRBC Auto (Bld) [#/Vol]on 50-99-5249WCG (Bld) [#/Vol]4.26 10*6/uL3.90-5.20Memorial Health Systemerum or plasma anion gap determinationon 35-32-5051Xnxwb gap [Moles/Vol]10 mmol/L9-18 [facility] HospitalBasic metabolic 2000 panelon 22-83-9633Ntccg gap [Moles/Vol]12 mmol/LNormal9-18Ffederal medical center, devens HospitalComment on above:Order Comment: Specimen Type: BLOOD SPECIMENOrdering Facility: [facility] Address:[address] [place], [place] [address]Performed By: #### 08009- 2 ####CORNELIUS LABORATORYCLIA [id number] [place] [address] [place] AMERICACalcium [Mass/Vol]9.1 mg/dLNormal8.5-10.2Ffederal medical center, devens HospitalComment on above:Order Comment: Specimen Type: BLOOD SPECIMENOrdering Facility: [facility] Address:[address] [place], [place] [address]Performed By: #### 38787-2 ####CORNELIUS LABORATORYCLIA [id number] [place] [address] [place] AMERICAChloride [Moles/Vol]106 mmol/OEajq62-826Rxaotemh HospitalComment on above:Order Comment: Specimen Type: BLOOD SPECIMENOrdering Facility: [facility] Address:[address] [place], [place] [address]Performed By: #### 67155-3 ####CORNEL[facility] LABORATORYCLIA [id number] [place] [id number] [place] AMERICACO2 [Moles/Vol]22 mmol/FQzudnm51-74Draavpai HospitalComment on above: Order Comment: Specimen Type: BLOOD SPECIMENOrdering Facility: [facility] Address:[address] [place], [place] [address]Performed By: #### 73261- 2 ####CORNLE[facility] LABORATORYCLIA [id number] [place] [address] [place] AMERICACreatinine [Mass/Vol]0.87 mg/dLNormal0.58-0.96[facility] HospitalCombeaumont hospital on above:Order Comment: Specimen Type: BLOOD SPECIMENOrdering Facility: [facility] Address:[address] [place], [place] [id number] By: #### 64613-9 ####CORN[facility] LABORATORYCLIA [id number] [place] [id number] [place] AMERICACreatinine and Glomerular filtration rate.predicted panel (S/P/Bld)72 mL/min/1.73m???Normal>=60 [facility] on above:Order Comment: Specimen Type: BLOOD SPECIMENOrdering Facility: [facility] Address:[address] [place], [place] [address]Result Comment: Estimated Glomerular Filtration Rate (eGFR) is calculated using the 2020 CKD-EPI creatinine equation. This equation utilizes serum creatinine, sex, and age as parameters. The creatinine assay has traceable calibration to isotope dilution-mass spectrometry. Refer to KDIGO guidelines for clinical interpretation. In patients with unstable renal function, e.g. those with acute kidney injury, the eGFR may not accurately reflect actual GFR.Performed By: #### 15548-3 ####[facility] LABORATORYCLIA [id number] [place] [id number] [place] OF AMERICAGlucose [Mass/Vol]109 mg/mWDxnk79-51Rhkxfbpk HospitalCombeaumont hospital on above:Order Comment: Specimen Type: BLOOD SPECIMENOrdering Facility: [facility] Address:[address] [place], [place] [address]Result Comment: The Micronesian Diabetes Association (ADA) provides guidance for cutoff [...] Standards of Medical Care in Diabetes 2016, [place] Diabetes Association. Diabetes Care. 2016.39(Suppl 1). Performed By: #### 55554-5 ####[facility] LABORATORYCLIA [id number] [place] [address] [place] AMERICAPotassium [Moles/Vol]4.3 mmol/LNormal3.7-5.1Ffederal medical center, devens HospitalComment on above:Order Comment: Specimen Type: BLOOD SPECIMENOrdering Facility: [facility] Address:[address] [place], [place] [address]Performed By: #### 23059-9 ####[facility] LABORATORYCLIA [id number] [place] [id number] [place] AMERICASodium [Moles/Vol]140 mmol/CZnxicy393-307Obnfppjn HospitalComment on above:Order Comment: Specimen Type: BLOOD SPECIMENOrdering Facility: [facility] Address:[address] [place], [place] [address]Performed By: #### 70210-1 ####[facility] LABORATORYCLIA [id number] [place] [id number] [place] OF AMERICAUrea nitrogen [Mass/Vol]19 mg/dLNormal7-21FaChelsea Memorial HospitalComment on above:Order Comment: Specimen Type: BLOOD SPECIMENOrdering Facility: [facility] Address:[address] [place], [place] [address]Performed By: #### 43093-1 ####[facility] LABORATORYCLIA [id number] [place] [id number] [place] AMERICABasophils Auto (Bld) [#/Vol]on 87-30-0509Vxyiigexe (Bld) [#/Vol]10*3/uL<0.11[facility] HospitalBasophils/100 WBC Auto (Bld)on 25-51-6918Ffhedemfy/100 WBC (Bld) 0.3 %[facility] HospitalBlood manual differential comment interpretation narrativeon 70-54-8196Ardilr differential comment Ankush (Bld) [Interp]AutoParkwood HospitalCASE MANAGEMon 56-42-3217SBMU MANAGEMNormalMassachusetts Mental Health Center W Auto Differential panel (Bld)on 08-29-2023 Basophils (Bld) [#/Vol]10*3/uLNormal<0.11[facility]vine HospitalComment on above:Order Comment: Specimen Type: BLOOD SPECIMENOrdering Facility: [facility] Address:[address] [place], [place] [address]Performed By: #### 43774- 8 ####[facility] LABORATORYCLIA [id number] [place] [id number] [place] AMERICABasophils/100 WBC (Bld)0.3 %[facility] Comment on above:Order Comment: Specimen Type: BLOOD SPECIMENOrdering Facility: [facility] Address:[address] [place] [address] Performed By: #### 64915-1 ####[facility] LABORATORYCLIA [id number] [place] [id number] [place] AMERICADifferential cell count method Nom (Bld)AutoNormalArbour-Hri HospitalComment on above:Order Comment: Specimen Type: BLOOD SPECIMENOrdering Facility: [facility] Address:[address] [place], [place] [address]Performed By: #### 08310-1 ####[facility] LABORATORYCLIA [id number] [place] [address] [place] AMERICAEosinophils (Bld) [#/Vol]0.44 10*3/uLNormal<0.46Irvine HospitalComment on above:Order Comment: Specimen Type: BLOOD SPECIMENOrdering Facility: [facility] Address:[address] [place] [address] Performed By: #### 72261-8 ####[facility] LABORATORYCLIA [id number] [place] [id number] [place] AMERICAEosinophils/100 WBC (Bld)6.6 % [facility] HospitalComment on above:Order Comment: Specimen Type: BLOOD SPECIMENOrdering Facility: [facility] Address:[address] [place], [place] [address]Performed By: #### 58065-7 ####[facility] LABORATORYCLIA [id number] [place] [id number] [place] Erythrocyte distribution width (RBC) [Ratio]15.0 %Hpydnx69.5-15.0Arbour-Hri HospitalComment on above:Order Comment: Specimen Type: BLOOD SPECIMENOrdering Facility: [facility] Address:[address] [place], [place] [address]Performed By: #### 69152-9 ####[facility] LABORATORYCLIA [id number] [place] [address] [place] AMERICAHematocrit (Bld) [Volume fraction]36.4 %Fpjffo10.0-46.0Arbour-Hri HospitalComment on above:Order Comment: Specimen Type: BLOOD SPECIMENOrdering Facility: [facility] Address:[address] [place], [place] [address]Performed By: #### 59258- 8 ####[facility] LABORATORYCLIA [id number] [place] [address] [place] AMERICAHemoglobin (Bld) [Mass/Vol]11.9 g/oKHipegj42.5-15.5 Ar[facility]-Hri HospitalComment on above:Order Comment: Specimen Type: BLOOD SPECIMENOrdering Facility: [facility] Address:[address] [place], [place] [address]Performed By: #### 41038-1 ####[facility] LABORATORYCLIA [id number] [place] [id number] [place] Immature granulocytes (Bld) [#/Vol]0.03 10*3/uLNormal<0.10[facility] Comment on above:Order Comment: Specimen Type: BLOOD SPECIMENOrdering Facility: [facility] Address:[address] [place] [address] Performed By: #### 48468-0 ####[facility] LABORATORYCLIA [id number] [place] [id number] [place] AMERICAImmature granulocytes/100 WBC (Bld)0.4 %NormalFaChelsea Memorial HospitalComment on above:Order Comment: Specimen Type: BLOOD SPECIMENOrdering Facility: [facility] Address:[address] [place], [place] [address]Performed By: #### 92223-1 ####[facility] LABORATORYCLIA [id number] [place] [address] [place] Lymphocytes (Bld) [#/Vol]0.73 10*3/uLLow1.00-4.00Irvine HospitalComment on above:Order Comment: Specimen Type: BLOOD SPECIMENOrdering Facility: [facility] Address:[address] [place], [place] [address]Performed By: #### 51834-3 ####[facility] LABORATORYCLIA [id number] [place] [id number] [facility]ITALLymphocytes/100 WBC (Bld)10.9 %NormalIrvine HospitalComment on above:Order Comment: Specimen Type: BLOOD SPECIMENOrdering Facility: [facility] Address:[address] [place], [place] [address]Performed By: #### 11252-3 ####[facility] LABORATORYCLIA [id number] [address] (RBC) [Entitic mass]29.6 siYkacrs32.0-34.0Irvine HospitalComment on above:Order Comment: Specimen Type: BLOOD SPECIMENOrdering Facility: [facility] Address:[address] [place], [place] [address]Performed By: #### 63744-6 ####[facility] LABORATORYCLIA [id number] [place] [id number] [facility] ([facility]) [Mass/Vol]32.7 g/iHRvtimo45.5-36.0Irvine HospitalComment on above:Order Comment: Specimen Type: BLOOD SPECIMENOrdering Facility: [facility] Address:[address] [place], [place] [address]Performed By: #### 55312-8 ####[facility] LABORATORYCLIA [id number] [place] [address] [facility] (RBC) [Entitic vol] 90.5 nNFbczrc80.0-100.0Fanorthampton state hospital HospitalComment on above:Order Comment: Specimen Type: BLOOD SPECIMENOrdering Facility: [facility] Address:[address] [place], [place] [address]Performed By: #### 21835-7 ####[facility] LABORATORYCLIA [id number] [place] [id number] [place] AMERICAMonocytes (Bld) [#/Vol]0.59 10*3/uLNormal<0.87Fanorthampton state hospital HospitalComment on above:Order Comment: Specimen Type: BLOOD SPECIMENOrdering Facility: [facility] Address:[address] [place], [place] [address]Performed By: #### 86770-9 ####[facility] LABORATORYCLIA [id number] [place] [id number] [place] AMERICAMonocytes/100 WBC (Bld)8.8 %NormalIrvine HospitalComment on above:Order Comment: Specimen Type: BLOOD SPECIMENOrdering Facility: [facility] Address:[address] [place], [place] [address]Performed By: #### 53050-3 ####[facility] LABORATORYCLIA [id number] [place] [id number] [place] AMERICANeutrophils (Bld) [#/Vol]4.87 10*3/uLNormal1.45-7.50Fanorthampton state hospital HospitalComment on above:Order Comment: Specimen Type: BLOOD SPECIMENOrdering Facility: [facility] Address:[address] [place], [place] [address]Performed By: #### 26055- 8 ####[facility] LABORATORYCLIA [id number] [place] [id number] [place] AMERICANeutrophils/100 WBC (Bld)73.0 %NormalIrvine Hospital Comment on above:Order Comment: Specimen Type: BLOOD SPECIMENOrdering Facility: [facility] Address:[address] [place] [address] Performed By: #### 10468-2 ####[facility] LABORATORYCLIA [id number] [place] [id number] [place] AMERICANucleated RBC (Bld) [#/Vol] 10*3/uLNormal<0.01Fanorthampton state hospital HospitalComment on above:Order Comment: Specimen Type: BLOOD SPECIMENOrdering Facility: [facility] Address:[address] [place], [place] [address]Performed By: #### 34032-4 ####[facility] LABORATORYCLIA [id number] [place] [id number] [place] AMERICANucleated RBC/100 WBC (Bld) [Ratio]0.0 /100 WBCNormalFanorthampton state hospital Hospital Comment on above:Order Comment: Specimen Type: BLOOD SPECIMENOrdering Facility: [facility] Address:[address] [place] [address] Performed By: #### 33806-5 ####[facility] LABORATORYCLIA [id number] [place] [id number] [place] AMERICAPlatelet mean volume (Bld) [Entitic vol]8.9 fLLow9.0-12.7Ffederal medical center, devens HospitalComment on above:Order Comment: Specimen Type: BLOOD SPECIMENOrdering Facility: [facility] Address:[address] [place], [place] [address]Performed By: #### 89741-1 ####[facility] LABORATORYCLIA [id number] [place] [id number] [place] AMERICAPlatelets (Bld) [#/Vol]266 10*3/qHQemqwg512-914Njlnzqtg HospitalComment on above:Order Comment: Specimen Type: BLOOD SPECIMENOrdering Facility: [facility] Address:[address] [place], [place] [address]Performed By: #### 46304-2 ####[facility] LABORATORYCLIA [id number] [place] [id number] [place] AMERICARBC (Bld) [#/Vol]4.02 10*6/uLNormal3.90-5.20Fanorthampton state hospital HospitalComment on above:Order Comment: Specimen Type: BLOOD SPECIMENOrdering Facility: [facility] Address:[address] [place], [place] [address]Performed By: #### 86497-9 ####[facility] LABORATORYCLIA [id number] [place] [id number] [place] OF AMERICAWBC (Bld) [#/Vol]6.68 10*3/uLNormal3.70-11.00Arbour-Hri HospitalComment on above:Order Comment: Specimen Type: BLOOD SPECIMENOrdering Facility: [facility] Address:[address] [place], [place] [address]Performed By: #### 23508-0 ####[facility] LABORATORYCLIA [id number] [place] [id number] [place] WAYNE HOSPITALCONSULTon 24-65-8756HDQZBMIBwdyvtKltiracw Hospital Eosinophils/100 WBC Auto (Bld)on 25-81-5920Yjnduktmkwa/100 WBC (Bld)6.6 % Parkwood HospitalErythrocyte distribution width Auto (RBC) [Ratio]on 76-91-9553Genmwtmdwsq distribution width (RBC) [Ratio]15.0 %11.5-15.0 [facility] HospitalHematocrit Auto (Bld) [Volume fraction]on 22-42-4445Fykhawvney (Bld) [Volume fraction]36.4 %36.0-46.0[facility] HospitalHemoglobin [Mass/volume] in Bloodon 21-77-5851Qawhrbqyzm (Bld) [Mass/Vol]11.9 g/dL11.5-15.5FMcCullough-Hyde Memorial HospitalLaboratory - Chemistry and Chemistry - challengeon 99-50-9736Tajycnz [Mass/Vol]9.1 mg/dL 8.5-10.2FMcCullough-Hyde Memorial HospitalChloride [Moles/Vol]106 mmol/L97-105 [facility] HospitalCO2 [Moles/Vol]22 mmol/X35-53GrgdivonjParkwood HospitalCreatinine [Mass/Vol]0.87 mg/dL0.58-0.96[facility] HospitalGlucose [Mass/Vol]109 mg/fL12-53IzedtubcxParkwood Hospital Comment on above:The [place]ron[place] Diabetes Association (ADA) provides guidance for cutoff [...] diabetes.Reference: Standardsof Medical Care in Diabetes 2016, [place] Diabetes Association. Diabetes Care. 2016.39(Suppl 1).Potassium [Moles/Vol]4.3 mmol/L3.7-5.1FOhioHealth Riverside Methodist Hospitalodium [Moles/Vol]140 mmol/Z395-449IpchltyrgParkwood HospitalUrea nitrogen [Mass/Vol]19 mg/dL7-21[facility] HospitalLaboratory - Hematology and Cell countson 58-52-8533Iajckxuunje (Bld) [#/Vol]0.44 10*3/uL<0.46[facility] HospitalImmature granulocytes (Bld) [#/Vol]0.03 10*3/uL<0.10[facility] granulocytes/100 WBC (Bld)0.4 %[facility] HospitalLeukocytes [#/volume] corrected for nucleated erythrocytes in Blood by Automated counon 91-44-0850LXV corrected for nucl RBC Auto (Bld) [#/Vol]6.68 k/uL3.70-11.00 [facility] HospitalLymphocytes Auto (Bld) [#/Vol]on 08-29-2023 Lymphocytes (Bld) [#/Vol]0.73 10*3/uL1.00-4.00[facility] Lymphocytes/100 WBC Auto (Bld)on 71-89-4079Jelbpnenhuk/100 WBC (Bld)10.9 % [facility] Auto (RBC) [Entitic mass]on 93-92-3556OQX (RBC) [Entitic mass]29.6 pg26.0-34.0Park[facility] HospitalMCHC Auto (RBC) [Mass/Vol]on 56-94-8679UUTF (RBC) [Mass/Vol]32.7 g/dL30.5-36.0[facility] HospitalMCV Auto (RBC) [Entitic vol]on 23-74-8899FSO (RBC) [Entitic vol]90.5 fL80.0-100.0[facility] HospitalMonocytes Auto (Bld) [#/Vol]on 76-31-1158Rqkrdzapc (Bld) [#/Vol]0.59 10*3/uL<0.87[facility] HospitalMonocytes/100 WBC Auto (Bld)on 34-33-3777Kvimqrdst/100 WBC (Bld)8.8 %[facility] HospitalNURSING PROGon 94-70-4921NUHLJCM PROGNormalFairchillicothe hospital HospitalNeutrophils Auto (Bld) [#/Vol]on 08-29-2023 Neutrophils (Bld) [#/Vol]4.87 10*3/uL1.45-7.50[facility] Neutrophils/100 WBC Auto (Bld)on 12-53-0474Mrayugtzriv/100 WBC (Bld)73.0 % [facility] HospitalNo Panel Informationon 09-55-0698Vxyqjaucn GFR (CKD-EPI)72 mL/min/1.73m???>=60Park[facility] HospitalComment on above:Estimated Glomerular Filtration Rate (eGFR) [...] reflect actual GFR.Nucleated RBC Auto (Bld) [#/Vol]on 02-92-2446Ahpzvocns RBC (Bld) [#/Vol]10*3/uL<0.01[facility] HospitalNucleated erythrocytes [Presence] in Blood by Automated counton 18-33-5157Ezuumfknp RBC Auto Ql (Bld)0.0 /100{WBC}[facility] HospitalPlatelet mean volume Auto (Bld) [Entitic vol]on 07-66-1023Oouumpth mean volume (Bld) [Entitic vol]8.9 fL9.0-12.7FMcCullough-Hyde Memorial Hospital Platelets Auto (Bld) [#/Vol]on 09-46-6365Mfqcxufsb (Bld) [#/Vol]266 10*3/uL 150-400Parkwood HospitalRBC Auto (Bld) [#/Vol]on 91-69-5252HRW (Bld) [#/Vol]4.02 10*6/uL3.90-5.20Memorial Health Systemerum or plasma anion gap determinationon 72-24-5035Vuwfw gap [Moles/Vol]12 mmol/L9-18 [facility] HospitalBasic metabolic 2000 panelon 49-46-8345Zcvop gap [Moles/Vol]11 mmol/LNormal9-18Ffederal medical center, devens HospitalComment on above:Order Comment: Specimen Type: BLOOD SPECIMENOrdering Facility: [facility] Address:[address] [place], [place] [address]Performed By: #### 78660- 2 ####[facility] LABORATORYCLIA [id number] [place] [address] [place] AMERICACalcium [Mass/Vol]9.3 mg/dLNormal8.5-10.2Ffederal medical center, devens HospitalComment on above:Order Comment: Specimen Type: BLOOD SPECIMENOrdering Facility: [facility] Address:[address] [place], [place] [address]Performed By: #### 83655-2 ####[facility] LABORATORYCLIA [id number] [place] [address] [place] AMERICAChloride [Moles/Vol]107 mmol/EQzfs17-712Cnalpfci HospitalComment on above:Order Comment: Specimen Type: BLOOD SPECIMENOrdering Facility: [facility] Address:[address] [place], [place] [address]Performed By: #### 55418-7 ####[facility] LABORATORYCLIA [id number] [place] [id number] [place] AMERICACO2 [Moles/Vol]23 mmol/UOrwrcn21-33Rwlpmxza HospitalComment on above: Order Comment: Specimen Type: BLOOD SPECIMENOrdering Facility: [facility] Address:[address] [place], [place] [address]Performed By: #### 46971- 2 ####[facility] LABORATORYCLIA [id number] [place] [id number] [place] AMERICACreatinine [Mass/Vol]0.78 mg/dLNormal0.58-0.96[facility] on above:Order Comment: Specimen Type: BLOOD SPECIMENOrdering Facility: [facility] Address:[address] [place], [place] [address]Performed By: #### 38810-6 ####[facility] LABORATORYIA [id number] [place] [address] [place] AMERICACreatinine and Glomerular filtration rate.predicted panel (S/P/Bld)82 mL/min/1.73m???Normal>=60 [facility] on above:Order Comment: Specimen Type: BLOOD SPECIMENOrdering Facility: [facility] Address:[address] [place], [place] [address]Result Comment: Estimated Glomerular Filtration Rate (eGFR) is calculated using the 2020 CKD-EPI creatinine equation. This equation utilizes serum creatinine, sex, and age as parameters. The creatinine assay has traceable calibration to isotope dilution-mass spectrometry. Refer to KDIGO guidelines for clinical interpretation. In patients with unstable renal function, e.g. those with acute kidney injury, the eGFR may not accurately reflect actual GFR.Performed By: #### 77480-7 ####[facility] LABORATORYCLIA [id number] [place] [id number] [place] AMERICAGlucose [Mass/Vol]111 mg/gJFhvr02-55WxlixhgpEncompass Rehabilitation Hospital of [facility] [place] on above:Order Comment: Specimen Type: BLOOD SPECIMENOrdering Facility: [facility] Address:[address] [place], [place] [address]Result Comment: The [place] Diabetes Association (ADA) provides guidance for cutoff [...] Standards of Medical Care in Diabetes 2016, [place] Diabetes Association. Diabetes Care. 2016.39(Suppl 1). Performed By: #### 82830-8 ####[facility] LABORATORYCLIA [id number] [place] [address] [place] AMERICAPotassium [Moles/Vol]4.7 mmol/LNormal3.7-5.1Ffederal medical center, devens HospitalComment on above:Order Comment: Specimen Type: BLOOD SPECIMENOrdering Facility: [facility] Address:[address] [place], [place] [address]Performed By: #### 47996-5 ####[facility] LABORATORYCLIA [id number] [place] [address] [place] AMERICASodium [Moles/Vol]141 mmol/IJtbate259-294Wygnftjz HospitalComment on above:Order Comment: Specimen Type: BLOOD SPECIMENOrdering Facility: [facility] Address:[address] [place], [place] [address]Performed By: #### 69487-8 ####[facility] LABORATORYCLIA [id number] [place] [id number] [place] AMERICAUrea nitrogen [Mass/Vol]19 mg/dLNormal7-21FaChelsea Memorial HospitalComment on above:Order Comment: Specimen Type: BLOOD SPECIMENOrdering Facility: [facility] Address:[address] [place], [place] [address]Performed By: #### 43293-9 ####[facility] LABORATORYCLIA [id number] [place] [address] [place] AMERICABasophils Auto (Bld) [#/Vol]on 29-70-0233Lfbmsfplf (Bld) [#/Vol]10*3/uL<0.11[facility] HospitalBasophils/100 WBC Auto (Bld)on 36-79-5782Xuwhhyoeq/100 WBC (Bld) 0.1 %[facility] HospitalBlood manual differential comment interpretation narrativeon 76-89-3065Sfyzsw differential comment Ankush (Bld) [Interp]AutoParkwood HospitalCASE MANAGEMon 61-55-4189ORMZ MANAGEMNormalArbour-Hri HospitalCB W Auto Differential panel (Bld)on 08-28-2023 Basophils (Bld) [#/Vol]10*3/uLNormal<0.11[facility] HospitalComment on above:Order Comment: Specimen Type: BLOOD SPECIMENOrdering Facility: [facility] Address:[address] [place], [place] [address]Performed By: #### 88106- 8 ####[facility] LABORATORYCLIA [id number] [place] [address] [place] AMERICABasophils/100 WBC (Bld)0.1 %NormalIrvine Hospital Comment on above:Order Comment: Specimen Type: BLOOD SPECIMENOrdering Facility: [facility] Address:[address] [place] [address] Performed By: #### 90439-6 ####C[facility] LABORATORYCLIA [id number] [place] [address] [place] AMERICADifferential cell count method Nom (Bld)AutoNormalIrvine HospitalComment on above:Order Comment: Specimen Type: BLOOD SPECIMENOrdering Facility: [facility] Address:[address] [place], [place] [address]Performed By: #### 28891-8 ####C[facility] LABORATORYCLIA [id number] [place] [address] [place] AMERICAEosinophils (Bld) [#/Vol]0.37 10*3/uLNormal<0.46[facility] HospitalComment on above:Order Comment: Specimen Type: BLOOD SPECIMENOrdering Facility: [facility] Address:[address] [place] [address] Performed By: #### 83816-2 ####C[facility] LABORATORYCLIA [id number] [place] [address] [place] AMERICAEosinophils/100 WBC (Bld)5.5 % NormalIrvine HospitalComment on above:Order Comment: Specimen Type: BLOOD SPECIMENOrdering Facility: [facility] Address:[address] [place], [place] [address]Performed By: #### 30982-4 ####C[facility] LABORATORYCLIA [id number] [place] [address] [place] Erythrocyte distribution width (RBC) [Ratio]15.1 %High11.5-15.0Fanorthampton state hospital Hospital Comment on above:Order Comment: Specimen Type: BLOOD SPECIMENOrdering Facility: [facility] Address:[address] [place] [address] Performed By: #### 52002-8 ####CORN[facility] LABORATORYCLIA [id number] [place] [address] [place] AMERICAHematocrit (Bld) [Volume fraction]34.5 %Low36.0-46.0Fanorthampton state hospital HospitalComment on above:Order Comment: Specimen Type: BLOOD SPECIMENOrdering Facility: [facility] Address:[address] [place], [place] [address]Performed By: #### 40338-7 ####C[facility] LABORATORYCLIA [id number] [place] [address] [place] AMERICAHemoglobin (Bld) [Mass/Vol]11.0 g/dLLow11.5-15.5Ffederal medical center, devens HospitalComment on above:Order Comment: Specimen Type: BLOOD SPECIMENOrdering Facility: [facility] Address:[address] [place], [place] [address]Performed By: #### 78170-7 ####[facility] LABORATORYCLIA [id number] [place] [id number] [place] AMERICAImmature granulocytes (Bld) [#/Vol]0.03 10*3/uLNormal<0.10[facility]vine HospitalComment on above:Order Comment: Specimen Type: BLOOD SPECIMENOrdering Facility: [facility] Address:[address] [place], [place] [address]Performed By: #### 82604- 8 ####[facility] LABORATORYCLIA [id number] [place] [id number] [place] AMERICAImmature granulocytes/100 WBC (Bld)0.4 %NormalIrvine HospitalComment on above:Order Comment: Specimen Type: BLOOD SPECIMENOrdering Facility: [facility] Address:[address] [place], [place] [address]Performed By: #### 44244-8 ####C[facility] LABORATORYCLIA [id number] [place] [id number] [place] OF AMERICALymphocytes (Bld) [#/Vol]0.61 10*3/uLLow1.00-4.00[facility]vine HospitalComment on above:Order Comment: Specimen Type: BLOOD SPECIMENOrdering Facility: [facility] Address:[address] [place], [place] [address]Performed By: #### 10964-7 ####C[facility] LABORATORYCLIA [id number] [place] [id number] [place] AMERICALymphocytes/100 WBC (Bld)9.0 %NormalIrvine Hospital Comment on above:Order Comment: Specimen Type: BLOOD SPECIMENOrdering Facility: [facility] Address:[address] [place] [address] Performed By: #### 45896-5 ####CORN[facility] LABORATORYCLIA [id number] [place] [id number] [facility] (RBC) [Entitic mass]29.3 kzXvzdbb38.0-34.0Irvine HospitalComment on above:Order Comment: Specimen Type: BLOOD SPECIMENOrdering Facility: [facility] Address:[address] [place], [place] [address]Performed By: #### 01329-8 ####CORNELIUS LABORATORYCLIA [id number] [place] [id number] [facility] (RBC) [Mass/Vol]31.9 g/eXCcorpu77.5-36.0Irvine HospitalComment on above:Order Comment: Specimen Type: BLOOD SPECIMENOrdering Facility: [facility] Address:[address] [place], [place] [address]Performed By: #### 34777- 8 ####CORNELIUS LABORATORYCLIA [id number] [place] [id number] [place] AMERICAMCV (RBC) [Entitic vol]91.8 rZBocwqz06.0-100.0Irvine HospitalComment on above:Order Comment: Specimen Type: BLOOD SPECIMENOrdering Facility: [facility] Address:[address] [place], [place] [address]Performed By: #### 38854-7 ####CORNELIUS LABORATORYCLIA [id number] [place] [id number] [place] AMERICAMonocytes (Bld) [#/Vol] 0.44 10*3/uLNormal<0.87Fanorthampton state hospital HospitalComment on above:Order Comment: Specimen Type: BLOOD SPECIMENOrdering Facility: [facility] Address:[address] [place], [place] [address]Performed By: #### 20210-9 ####CORNELIUS LABORATORYCLIA [id number] [place] [id number] [place] AMERICAMonocytes/100 WBC (Bld)6.5 %NormalIrvine HospitalComment on above: Order Comment: Specimen Type: BLOOD SPECIMENOrdering Facility: [facility] Address:[address] [place], [place] [address]Performed By: #### 13629- 8 ####CORNELIUS LABORATORYCLIA [id number] [place] [id number] [place] OF AMERICANeutrophils (Bld) [#/Vol]5.30 10*3/uLNormal1.45-7.50 [facility] HospitalComment on above:Order Comment: Specimen Type: BLOOD SPECIMENOrdering Facility: [facility] Address:[address] [place], [place] [address]Performed By: #### 27973-1 ####CORNELIUS LABORATORYCLIA [id number] [place] [id number] [place] Neutrophils/100 WBC (Bld)78.5 %NormalFanorthampton state hospital HospitalComment on above:Order Comment: Specimen Type: BLOOD SPECIMENOrdering Facility: [facility] Address:[address] [place], [place] [address]Performed By: #### 40240- 8 ####CORNELIUS LABORATORYCLIA [id number] [place] [id number] [place] OF AMERICANucleated RBC (Bld) [#/Vol]10*3/uLNormal<0.01Fanorthampton state hospital HospitalComment on above:Order Comment: Specimen Type: BLOOD SPECIMENOrdering Facility: [facility] Address:[address] [place], [place] [address]Performed By: #### 29041-0 ####CORNELIUS LABORATORYCLIA [id number] [place] [id number] [place] AMERICANucleated RBC/100 WBC (Bld) [Ratio]0.0 /100 WBCNormalIrvine HospitalComment on above:Order Comment: Specimen Type: BLOOD SPECIMENOrdering Facility: [facility] Address:[address] [place], [place] [address]Performed By: #### 20220-7 ####CORNELIUS LABORATORYCLIA [id number] [place] [id number] [place] OF AMERICAPlatelet mean volume (Bld) [Entitic vol]8.9 fLLow 9.0-12.7Ffederal medical center, devens HospitalComment on above:Order Comment: Specimen Type: BLOOD SPECIMENOrdering Facility: [facility] Address:[address] [place], [place] [address]Performed By: #### 50677-4 ####CORNELIUS LABORATORYCLIA [id number] [place] [id number] [place] Platelets (Bld) [#/Vol]236 10*3/yJLfvhsl051-982Mfddmcar HospitalComment on above:Order Comment: Specimen Type: BLOOD SPECIMENOrdering Facility: [facility] Address:[address] [place], [place] [address]Performed By: #### 48412-3 ####CORNELIUS LABORATORYCLIA [id number] [address] AVENUECLE[address] SOTO STREETRBC (Bld) [#/Vol]3.76 10*6/uLLow3.90-5.20Fanorthampton state hospital HospitalComment on above:Order Comment: Specimen Type: BLOOD SPECIMENOrdering Facility: [facility] Address:[address] [place], [place] [address]Performed By: #### 53893-3 ####VIPINLISSETH LABORATORYCLIA [id number] [address] STREETWBC (Bld) [#/Vol]6.76 10*3/uLNormal3.70-11.00Fanorthampton state hospital HospitalComment on above:Order Comment: Specimen Type: BLOOD SPECIMENOrdering Facility: [facility] Address:[address] [place], [place] [address]Performed By: #### 27569-3 ####CORNELIUS LABORATORYCLIA [id number] [place] [id number] [facility]PITALCONSULTon 46-30-6530DUJHIMPEtxgmaLhbbjpvb HospitalEosinophils/100 WBC Auto (Bld)on 80-22-5994Stggffrkmyc/100 WBC (Bld)5.5 %[facility] HospitalErythrocyte distribution width Auto (RBC) [Ratio]on 56-88-5479Lksknfyajww distribution width (RBC) [Ratio]15.1 %11.5-15.0[facility] Hematocrit Auto (Bld) [Volume fraction]on 48-08-3804Vimlykslpt (Bld) [Volume fraction]34.5 %36.0-46.0[facility] HospitalHemoglobin [Mass/volume] in Bloodon 16-48-8449Mznmatlxjr (Bld) [Mass/Vol]11.0 g/dL11.5-15.5 [facility] HospitalLaboratory - Chemistry and Chemistry - challengeon 74-15-6988Qhsjbjm [Mass/Vol]9.3 mg/dL8.5-10.2FMcCullough-Hyde Memorial HospitalChloride [Moles/Vol]107 mmol/I65-041OiuhhffmhParkwood HospitalCO2 [Moles/Vol]23 mmol/A56-97DeesllgubParkwood HospitalCreatinine [Mass/Vol]0.78 mg/dL0.58-0.96[facility] HospitalGlucose [Mass/Vol] 111 mg/kY72-91MvuojphcqParkwood HospitalComment on above:The [place]ron[place] Diabetes Association (ADA) provides guidance for cutoff [...] diabetes.Reference: Standardsof Medical Care in Diabetes 2016, [place] Diabetes Association. Diabetes Care. 2016.39(Suppl 1). Potassium [Moles/Vol]4.7 mmol/L3.7-5.1FOhioHealth Riverside Methodist Hospitalodium [Moles/Vol]141 mmol/G791-649PbvwhlqleParkwood HospitalUrea nitrogen [Mass/Vol]19 mg/dL7-21[facility] HospitalLaboratory - Hematology and Cell countson 81-17-5155Ugxoijukkbi (Bld) [#/Vol]0.37 10*3/uL<0.46[facility] HospitalImmature granulocytes (Bld) [#/Vol]0.03 10*3/uL<0.10 [facility] HospitalImmature granulocytes/100 WBC (Bld)0.4 % [facility] HospitalLeukocytes [#/volume] corrected for nucleated erythrocytes in Blood by Automated counon 45-34-0512FKZ corrected for nucl RBC Auto (Bld) [#/Vol]6.76 k/uL3.70-11.00[facility] Lymphocytes Auto (Bld) [#/Vol]on 58-52-2713Jcbrtqcfuee (Bld) [#/Vol]0.61 10*3/uL 1.00-4.00[facility] HospitalLymphocytes/100 WBC Auto (Bld)on 76-92-8802Xtffbiutcfo/100 WBC (Bld)9.0 %[facility] HospitalMCH Auto (RBC) [Entitic mass]on 71-20-6814UFW (RBC) [Entitic mass]29.3 pg26.0-34.0 [facility] HospitalMCHC Auto (RBC) [Mass/Vol]on 72-30-1940NINY (RBC) [Mass/Vol]31.9 g/dL30.5-36.0[facility] HospitalMCV Auto (RBC) [Entitic vol]on 86-11-1392SMH (RBC) [Entitic vol]91.8 fL80.0-100.0 [facility] HospitalMonocytes Auto (Bld) [#/Vol]on 08-28-2023 Monocytes (Bld) [#/Vol]0.44 10*3/uL<0.87[facility] Monocytes/100 WBC Auto (Bld)on 99-49-5402Qkwtggcxz/100 WBC (Bld)6.5 %[facility] HospitalNURSING PROGon 35-75-3365SGCMBHN PROGNormalFanorthampton state hospital HospitalNURSING PROGNormalFanorthampton state hospital HospitalNeutrophils Auto (Bld) [#/Vol]on 06-87-9773Hizgrwaafdm (Bld) [#/Vol]5.30 10*3/uL1.45-7.50[facility] HospitalNeutrophils/100 WBC Auto (Bld)on 52-70-4712Mylrqvitfdi/100 WBC (Bld)78.5 %[facility] HospitalNo Panel Informationon 08-28-2023 Estimated GFR (CKD-EPI)82 mL/min/1.73m???>=60[facility] Comment on above:Estimated Glomerular Filtration Rate [...] reflect actual GFR.Nucleated RBC Auto (Bld) [#/Vol]on 90-16-2900Gwnzhmpac RBC (Bld) [#/Vol]10*3/uL<0.01[facility] HospitalNucleated erythrocytes [Presence] in Blood by Automated counton 75-79-6542Tmheqcbxr RBC Auto Ql (Bld)0.0 /100{WBC}[facility] HospitalPT EDon 45-81-9679PR EDHeywood HospitalPlatelet mean volume Auto (Bld) [Entitic vol]on 91-73-3363Mctewglj mean volume (Bld) [Entitic vol] 8.9 fL9.0-12.7FMcCullough-Hyde Memorial HospitalPlatelets Auto (Bld) [#/Vol]on 27-77-2568Vlkpsplbs (Bld) [#/Vol]236 10*3/yN615-228SjzzoxshkParkwood HospitalRBC Auto (Bld) [#/Vol]on 93-10-1122NSS (Bld) [#/Vol]3.76 10*6/uL3.90-5.20 [facility] Systemerum or plasma anion gap determinationon 11-33-6676Ulxyr gap [Moles/Vol]11 mmol/L9-18FMcCullough-Hyde Memorial Hospital THERAPY NTon 00-94-2634CIXDYBW NTHeywood HospitalBasic metabolic 2000 panelon 60-84-4776Hwwkd gap [Moles/Vol]9 mmol/LNormal9-[address] [place] [address] Comment on above:Order Comment: Specimen Type: BLOOD SPECIMENOrdering Facility: [facility] Address:[address] [place] [address] Performed By: #### 88368-0 ####CORNELIUS LABORATORYCLIA [id number] [place] [address] [place] AMERICACalcium [Mass/Vol]9.0 mg/dL Normal8.5-10.2FBerkshire Medical CenterComment on above:Order Comment: Specimen Type: BLOOD SPECIMENOrdering Facility: [facility] Address:[address] [place], [place] [address]Performed By: #### 73398-9 ####CORNELIUS LABORATORYCLIA [id number] [place] [address] [place] Chloride [Moles/Vol]103 mmol/SKsatsl70-391Eoteqwwp HospitalComment on above: Order Comment: Specimen Type: BLOOD SPECIMENOrdering Facility: [facility] Address:[address] [place], [place] [address]Performed By: #### 91507- 2 ####CORNELIUS LABORATORYCLIA [id number] [place] [id number] [place] AMERICACO2 [Moles/Vol]27 mmol/FLjvqwc37-47Wlwzjips [facility] Comment on above:Order Comment: Specimen Type: BLOOD SPECIMENOrdering Facility: [facility] Address:[address] [place] [address] Performed By: #### 15926-8 ####CORNELIUS LABORATORYCLIA [id number] [place] [id number] [place] AMERICACreatinine [Mass/Vol]0.69 mg/dLNormal0.58-0.96FaChelsea Memorial HospitalComment on above:Order Comment: Specimen Type: BLOOD SPECIMENOrdering Facility: [facility] Address:[address] [place], [place] [address]Performed By: #### 27381-7 ####CORNELIUS LABORATORYCLIA [id number] [place] [address] [place] AMERICACreatinine and Glomerular filtration rate.predicted panel (S/P/Bld)93 mL/min/1.73m???Normal>=60FaChelsea Memorial HospitalComment on above:Order Comment: Specimen Type: BLOOD SPECIMENOrdering Facility: [facility] Address:[address] [place], [place] [address]Result Comment: Estimated Glomerular Filtration Rate (eGFR) is calculated using the 2020 CKD-EPI creatinine equation. This equation utilizes serum creatinine, sex, and age as parameters. The creatinine assay has traceable calibration to isotope dilution-mass spectrometry. Refer to KDIGO guidelines for clinical interpretation. In patients with unstable renal function, e.g. those with acute kidney injury, the eGFR may not accurately reflect actual GFR.Performed By: #### 11792-4 ####CORNELIUS LABORATORYCLIA [id number] [place] [address] [place] AMERICAGlucose [Mass/Vol]103 mg/pNIzmd14-90Ofiajxdc HospitalComment on above: Order Comment: Specimen Type: BLOOD SPECIMENOrdering Facility: [facility] Address:[address] [place], [place] [address]Result Comment: The Micron[place] Diabetes Association (ADA) provides guidance for cutoff [...] Standards of Medical Care in Diabetes 2016, [place] Diabetes Association. Diabetes Care. 2016.39(Suppl 1).Performed By: #### 74076-5 ####CORNELIUS LABORATORYCLIA [id number] [place] [address] [place] Potassium [Moles/Vol]4.2 mmol/LNormal3.7-5.1Ffederal medical center, devens HospitalComment on above: Order Comment: Specimen Type: BLOOD SPECIMENOrdering Facility: [facility] Address:[address] [place], [place] [address]Performed By: #### 62250- 2 ####CORNELIUS LABORATORYCLIA [id number] [place] [id number] [place] AMERICASodium [Moles/Vol]139 mmol/NVtymch303-301Qkbzpqvz HospitalComment on above:Order Comment: Specimen Type: BLOOD SPECIMENOrdering Facility: [facility] Address:[address] [place], [place] [address]Performed By: #### 10300-8 ####CORNELIUS LABORATORYCLIA [id number] [place] [id number] [place] AMERICAUrea nitrogen [Mass/Vol]12 mg/dLNormal7-21[facility] HospitalComment on above:Order Comment: Specimen Type: BLOOD SPECIMENOrdering Facility: [facility] Address:[address] [place], [place] [address]Performed By: #### 52780-0 ####CORNELIUS LABORATORYCLIA [id number] [place] [address] [place] AMERICABasophils Auto (Bld) [#/Vol]on 16-45-5244Naasvrfkp (Bld) [#/Vol]10*3/uL<0.11[facility] HospitalBasophils/100 WBC Auto (Bld)on 87-15-0386Yrmozkgvb/100 WBC (Bld)0.1 %[facility] Blood manual differential comment interpretation narrativeon 25-81-9402Mmplyg differential comment Ankush (Bld) [Interp]AutoParkwood HospitalCB W Auto Differential panel (Bld)on 45-53-8954Fedfhanbv (Bld) [#/Vol]10*3/uLNormal <0.11[facility] HospitalComment on above:Order Comment: Specimen Type: BLOOD SPECIMENOrdering Facility: [facility] Address:[address] [place], [place] [address]Performed By: #### 21927-9 ####CORNELIUS LABORATORYCLIA [id number] [place] [id number] [place] Basophils/100 WBC (Bld)0.1 %NormalIrvine HospitalComment on above:Order Comment: Specimen Type: BLOOD SPECIMENOrdering Facility: [facility] Address:[address] [place], [place] [address]Performed By: #### 47417- 8 ####CORNELIUS LABORATORYCLIA [id number] [place] [id number] [place] AMERICADifferential cell count method Nom (Bld)AutoNormal [facility]vine HospitalComment on above:Order Comment: Specimen Type: BLOOD SPECIMENOrdering Facility: [facility] Address:[address] [place], [place] [address]Performed By: #### 80477-3 ####CORNELIUS LABORATORYCLIA [id number] [place] [id number] [place] Eosinophils (Bld) [#/Vol]0.33 10*3/uLNormal<0.46Fanorthampton state hospital HospitalComment on above:Order Comment: Specimen Type: BLOOD SPECIMENOrdering Facility: [facility] Address:[address] [place], [place] [address]Performed By: #### 87969-0 ####CORNELIUS LABORATORYCLIA [id number] [place] [id number] [place] AMERICAEosinophils/100 WBC (Bld)4.1 %NormalIrvine HospitalComment on above:Order Comment: Specimen Type: BLOOD SPECIMENOrdering Facility: [facility] Address:[address] [place], [place] [address]Performed By: #### 35774-2 ####CORNELIUS LABORATORYCLIA [id number] [place] [address] [place] AMERICAErythrocyte distribution width (RBC) [Ratio]15.1 %High11.5-15.0Fanorthampton state hospital HospitalComment on above:Order Comment: Specimen Type: BLOOD SPECIMENOrdering Facility: [facility] Address:[address] [place], [place] [address]Performed By: #### 93944-6 ####CORNELIUS LABORATORYCLIA [id number] [place] [address] [place] AMERICAHematocrit (Bld) [Volume fraction]36.2 %Normal 36.0-46.0Fanorthampton state hospital HospitalComment on above:Order Comment: Specimen Type: BLOOD SPECIMENOrdering Facility: [facility] Address:[address] [place], [place] [address]Performed By: #### 84753-9 ####CORNELIUS LABORATORYCLIA [id number] [place] [id number] [place] Hemoglobin (Bld) [Mass/Vol]12.0 g/fQUnlfgq17.5-15.5Ffederal medical center, devens HospitalComment on above:Order Comment: Specimen Type: BLOOD SPECIMENOrdering Facility: [facility] Address:[address] [place], [place] [address]Performed By: #### 18519-9 ####CORNELIUS LABORATORYCLIA [id number] [place] [id number] [place] AMERICAImmature granulocytes (Bld) [#/Vol]0.04 10*3/uL Normal<0.10[facility] HospitalComment on above:Order Comment: Specimen Type: BLOOD SPECIMENOrdering Facility: [facility] Address:[address] [place], [place] [address]Performed By: #### 90576-5 ####CORNELIUS LABORATORYCLIA [id number] [place] [id number] [place] Immature granulocytes/100 WBC (Bld)0.5 %NormalFanorthampton state hospital HospitalComment on above: Order Comment: Specimen Type: BLOOD SPECIMENOrdering Facility: [facility] Address:[address] [place], [place] [address]Performed By: #### 72918- 8 ####CORNELIUS LABORATORYCLIA [id number] [place] [id number] [place] WAYNE HOSPITALLymphocytes (Bld) [#/Vol]1.04 10*3/uLNormal1.00-4.00 [facility] HospitalComment on above:Order Comment: Specimen Type: BLOOD SPECIMENOrdering Facility: [facility] Address:[address] [place], [place] [address]Performed By: #### 36283-1 ####CORNELIUS LABORATORYCLIA [id number] [place] [id number] [place] Lymphocytes/100 WBC (Bld)13.0 %NormalIrvine HospitalComment on above:Order Comment: Specimen Type: BLOOD SPECIMENOrdering Facility: [facility] Address:[address] [place], [place] [address]Performed By: #### 69187- 8 ####CORNELIUS LABORATORYCLIA [id number] [place] [id number] [place] WAYNE HOSPITALMCH (RBC) [Entitic mass]29.9 pnDfwayc79.0-34.0Fanorthampton state hospital HospitalComment on above:Order Comment: Specimen Type: BLOOD SPECIMENOrdering Facility: [facility] Address:[address] [place], [place] [address]Performed By: #### 89830-2 ####CORNELIUS LABORATORYCLIA [id number] [place] [id number] [place] [facility] HOSPITALMCHC (RBC) [Mass/Vol] 33.1 g/rRFjeyyb23.5-36.0[facility] HospitalComment on above:Order Comment: Specimen Type: BLOOD SPECIMENOrdering Facility: [facility] Address:[address] [place], [place] [address]Performed By: #### 80751-3 ####CORNELIUS LABORATORYCLIA [id number] [place] [id number] [facility]OSPITALMCV (RBC) [Entitic vol]90.0 cEIxeowl08.0-100.0[facility] HospitalComment on above:Order Comment: Specimen Type: BLOOD SPECIMENOrdering Facility: [facility] Address:[address] [place], [place] [address]Performed By: #### 73414-8 ####CORNELIUS LABORATORYCLIA [id number] [place] [address] [place] AMERICAMonocytes (Bld) [#/Vol] 0.59 10*3/uLNormal<0.87Fanorthampton state hospital HospitalComment on above:Order Comment: Specimen Type: BLOOD SPECIMENOrdering Facility: [facility] Address:[address] [place], [place] [address]Performed By: #### 08426-4 ####CORNELIUS LABORATORYCLIA [id number] [place] [id number] [place] AMERICAMonocytes/100 WBC (Bld)7.4 %NormalFanorthampton state hospital HospitalComment on above: Order Comment: Specimen Type: BLOOD SPECIMENOrdering Facility: [facility] Address:[address] [place], [place] [address]Performed By: #### 64914- 8 ####CORNELIUS LABORATORYCLIA [id number] [place] [id number] [place] AMERICANeutrophils (Bld) [#/Vol]6.00 10*3/uLNormal1.45-7.50 [facility] HospitalComment on above:Order Comment: Specimen Type: BLOOD SPECIMENOrdering Facility: [facility] Address:[address] [place], [place] [address]Performed By: #### 62518-7 ####CORNELIUS LABORATORYCLIA [id number] [place] [id number] [place] Neutrophils/100 WBC (Bld)74.9 %NormalIrvine HospitalComment on above:Order Comment: Specimen Type: BLOOD SPECIMENOrdering Facility: [facility] Address:[address] [place], [place] [address]Performed By: #### 16870- 8 ####CORNELIUS LABORATORYCLIA [id number] [place] [id number] [place] AMERICANucleated RBC (Bld) [#/Vol]10*3/uLNormal<0.01[facility] HospitalComment on above:Order Comment: Specimen Type: BLOOD SPECIMENOrdering Facility: [facility] Address:[address] [place], [place] [address]Performed By: #### 42199-2 ####CORNELIUS LABORATORYCLIA [id number] [place] [id number] [place] AMERICANucleated RBC/100 WBC (Bld) [Ratio]0.0 /100 WBCNormalIrvine HospitalCombeaumont hospital on above:Order Comment: Specimen Type: BLOOD SPECIMENOrdering Facility: [facility] Address:[address] [place], [place] [address]Performed By: #### 34170-5 ####CORNELIUS LABORATORYCLIA [id number] [place] [id number] [place] AMERICAPlatelet mean volume (Bld) [Entitic vol]8.7 fLLow 9.0-12.7Ffederal medical center, devens HospitalComment on above:Order Comment: Specimen Type: BLOOD SPECIMENOrdering Facility: [facility] Address:[address] [place], [place] [address]Performed By: #### 94014-4 ####CORNELIUS LABORATORYCLIA [id number] [place] [id number] [place] Platelets (Bld) [#/Vol]265 10*3/qIJnetjw261-780Epotadmh HospitalCombeaumont hospital on above:Order Comment: Specimen Type: BLOOD SPECIMENOrdering Facility: [facility] Address:[address] [place], [place] [address]Performed By: #### 81465-8 ####CORNELIUS LABORATORYCLIA [id number] [place] [id number] [place] AMERICARBC (Bld) [#/Vol]4.02 10*6/uLNormal3.90-5.20 [facility] on above:Order Comment: Specimen Type: BLOOD SPECIMENOrdering Facility: [facility] Address:[address] [place], [place] [address]Performed By: #### 57261-1 ####[facility] LABORATORYCLIA [id number] [place] [id number] [place] AMERICAWBC (Bld) [#/Vol]8.01 10*3/uLNormal3.70-11.00[facility] HospitalCombeaumont hospital on above:Order Comment: Specimen Type: BLOOD SPECIMENOrdering Facility: [facility] Address:[address] [place], [place] [address]Performed By: #### 89618- 8 ####[facility]UERN[facility] LABORATORYCLIA [id number] [place] [id number] [place] AMERICAEosinophils/100 WBC Auto (Bld)on 08-27-2023 Eosinophils/100 WBC (Bld)4.1 %[facility]wood HospitalErythrocyte distribution width Auto (RBC) [Ratio]on 07-21-7655Xcuwpyqqraz distribution width (RBC) [Ratio]15.1 %11.5-15.0[facility] HospitalHematocrit Auto (Bld) [Volume fraction]on 86-41-0107Ztaxqswrxv (Bld) [Volume fraction]36.2 % 36.0-46.0[facility] HospitalHemoglobin [Mass/volume] in Bloodon 61-00-9166Zwdvebfmix (Bld) [Mass/Vol]12.0 g/dL11.5-15.5FMcCullough-Hyde Memorial HospitalLaboratory - Chemistry and Chemistry - challengeon 08-27-2023 Calcium [Mass/Vol]9.0 mg/dL8.5-10.2FMcCullough-Hyde Memorial HospitalChloride [Moles/Vol]103 mmol/V40-056WhabtslalParkwood HospitalCO2 [Moles/Vol]27 mmol/V96-98WkxbhmgnkParkwood HospitalCreatinine [Mass/Vol]0.69 mg/dL 0.58-0.96[facility] HospitalGlucose [Mass/Vol]103 mg/dL74-99 [facility] HospitalComment on above:The [place] Diabetes Association (ADA) provides guidance for cutoff [...] diabetes.Reference: Standardsof Medical Care in Diabetes 2016, [place] Diabetes Association. Diabetes Care. 2016.39(Suppl 1). Potassium [Moles/Vol]4.2 mmol/L3.7-5.1FOhioHealth Riverside Methodist Hospitalodium [Moles/Vol]139 mmol/D432-469TuwgllylgParkwood HospitalUrea nitrogen [Mass/Vol]12 mg/dL7-21Park[facility] HospitalLaboratory - Hematology and Cell countson 90-12-3363Ppcubwcojin (Bld) [#/Vol]0.33 10*3/uL<0.46[facility] HospitalImmature granulocytes (Bld) [#/Vol]0.04 10*3/uL<0.10 [facility] HospitalImmature granulocytes/100 WBC (Bld)0.5 % [facility] HospitalLeukocytes [#/volume] corrected for nucleated erythrocytes in Blood by Automated counon 73-63-8758TPO corrected for nucl RBC Auto (Bld) [#/Vol]8.01 k/uL3.70-11.00[facility] Lymphocytes Auto (Bld) [#/Vol]on 73-65-1678Cgjgvgopplz (Bld) [#/Vol]1.04 10*3/uL 1.00-4.00[facility] HospitalLymphocytes/100 WBC Auto (Bld)on 17-60-8989Awcutjdlmiw/100 WBC (Bld)13.0 %[facility] CenterH Auto (RBC) [Entitic mass]on 24-54-4510BSQ (RBC) [Entitic mass]29.9 pg26.0-34.0 [facility] HospitalMCHC Auto (RBC) [Mass/Vol]on 55-06-4241LMQZ (RBC) [Mass/Vol]33.1 g/dL30.5-36.0[facility] HospitalMCV Auto (RBC) [Entitic vol]on 09-54-2893AGV (RBC) [Entitic vol]90.0 fL80.0-100.0 [facility] HospitalMonocytes Auto (Bld) [#/Vol]on 08-27-2023 Monocytes (Bld) [#/Vol]0.59 10*3/uL<0.87[facility] Monocytes/100 WBC Auto (Bld)on 47-73-4447Biwapwxor/100 WBC (Bld)7.4 %[facility] HospitalNURSING PROGon 62-13-0632WIUNDLJ PROGNormalFaChelsea Memorial HospitalNeutrophils Auto (Bld) [#/Vol]on 04-29-8982Rlmlmeokjtk (Bld) [#/Vol]6.00 10*3/uL1.45-7.50[facility] HospitalNeutrophils/100 WBC Auto (Bld) on 49-26-7912Ucvqppumpjw/100 WBC (Bld)74.9 %[facility] HospitalNo Panel Informationon 00-25-7822Usdnkkjms GFR (CKD-EPI)93 mL/min/1.73m???>=60 [facility] HospitalComment on above:Estimated Glomerular Filtration Rate (eGFR) [...] Auto (Bld) [#/Vol]on 08-27-2023 Nucleated RBC (Bld) [#/Vol]10*3/uL<0.01[facility] Nucleated erythrocytes [Presence] in Blood by Automated counton 08-27-2023 Nucleated RBC Auto Ql (Bld)0.0 /100{WBC}[facility] Platelet mean volume Auto (Bld) [Entitic vol]on 75-23-2380Hrbyqybh mean volume (Bld) [Entitic vol]8.7 fL9.0-12.7FMcCullough-Hyde Memorial HospitalPlatelets Auto (Bld) [#/Vol]on 13-52-4451Wkuwlwjxp (Bld) [#/Vol]265 10*3/uL263-069OcpdazxocParkwood HospitalRBC Auto (Bld) [#/Vol]on 76-24-6227BXO (Bld) [#/Vol]4.02 10*6/uL3.90-5.20[facility] Systemerum or plasma anion gap determinationon 06-80-1515Wayxc gap [Moles/Vol]9 mmol/L9-[facility] HospitalBasic metabolic 2000 panelon 42-36-9288Lzlbi gap [Moles/Vol]10 mmol/LNormal9-18Ffederal medical center, devens HospitalComment on above:Order Comment: Specimen Type: BLOOD SPECIMENOrdering Facility: [facility] Address:[address] [place], [place] [address]Performed By: #### [id number] ####[facility] LABORATORYCLIA [id number] [place] [address] [place] OF AMERICACalcium [Mass/Vol]8.7 mg/dLNormal8.5-10.2Ffederal medical center, devens HospitalComment on above:Order Comment: Specimen Type: BLOOD SPECIMENOrdering Facility: [facility] Address:[address] [place], [place] [address]Performed By: #### [id number]- 2 ####[facility] LABORATORYCLIA [id number] [place] [id number] [place] OF AMERICAChloride [Moles/Vol]107 mmol/DHxij57-249Pdnoeofb HospitalComment on above:Order Comment: Specimen Type: BLOOD SPECIMENOrdering Facility: [facility] Address:[address] [place], [place] [address]Performed By: #### [id number] ####[facility]ORNEL[facility] LABORATORYCLIA [id number] [place] [id number] [place] OF AMERICACO2 [Moles/Vol]25 mmol/YMgoibg80-37Hcupfmwz HospitalComment on above:Order Comment: Specimen Type: BLOOD SPECIMENOrdering Facility: [facility] Address:[address] [place], [place] [address]Performed By: #### 79092-6 ####CORNELIUS LABORATORYCLIA [id number] [place] [address] [place] OF AMERICACreatinine [Mass/Vol]0.69 mg/dLNormal0.58-0.96[facility] HospitalCombeaumont hospital on above:Order Comment: Specimen Type: BLOOD SPECIMENOrdering Facility: [facility] Address:[address] [place] [address] Performed By: #### 08867-4 ####CORNELIUS LABORATORYCLIA [id number] [place] [address] [place] AMERICACreatinine and Glomerular filtration rate.predicted panel (S/P/Bld)93 mL/min/1.73m???Normal>=60[facility] HospitalCombeaumont hospital on above:Order Comment: Specimen Type: BLOOD SPECIMENOrdering Facility: [facility] Address:[address] [place], [place] [address]Result Comment: Estimated Glomerular Filtration Rate (eGFR) is [...] accurately reflect actual GFR. Performed By: #### 52986-4 ####CORNELIUS LABORATORYCLIA [id number] [place] [id number] [place] OF AMERICAGlucose [Mass/Vol]84 mg/dL Kkjtvg69-07Lkczjryn HospitalComment on above:Order Comment: Specimen Type: BLOOD SPECIMENOrdering Facility: [facility] Address:[address] [place], [place] [address]Result Comment: The Micronesian Diabetes Association (ADA) provides guidance for cutoff [...] Standards of Medical Care in Diabetes 2016, [place] Diabetes Association. Diabetes Care. 2016.39(Suppl 1).Performed By: #### 19281-2 ####CORNELIUS LABORATORYCLIA [id number] [place] [id number] [place] OF AMERICAPotassium [Moles/Vol]3.5 mmol/LLow3.7-5.1FBerkshire Medical CenterComment on above:Order Comment: Specimen Type: BLOOD SPECIMENOrdering Facility: [facility] Address:[address] [place], [place] [address]Performed By: #### 60858-7 ####CORNELIUS LABORATORYCLIA [id number] [place] [id number] [place] OF AMERICASodium [Moles/Vol]142 mmol/KEdbixf206-117Dlqhakgc HospitalComment on above:Order Comment: Specimen Type: BLOOD SPECIMENOrdering Facility: [facility] Address:[address] [place], [place] [address]Performed By: #### 22272-7 ####[facility] LABORATORYCLIA [id number] [place] [id number] [place] OF AMERICAUrea nitrogen [Mass/Vol]11 mg/dLNormal7-21Irvine HospitalComment on above:Order Comment: Specimen Type: BLOOD SPECIMENOrdering Facility: [facility] Address:[address] [place], [place] [address]Performed By: #### 61341-5 ####CORNELIUS LABORATORYCLIA [id number] [place] [id number] [place] OF AMERICABasophils Auto (Bld) [#/Vol]on 24-61-1029Jytajqjdw (Bld) [#/Vol]0.04 10*3/uL<0.11Parkwood HospitalBasophils/100 WBC Auto (Bld)on 53-63-6714Yownvchjj/100 WBC (Bld)0.5 %Parkwood HospitalBlood manual differential comment interpretation narrativeon 42-76-6431Wzlmsl differential comment Ankush (Bld) [Interp]AutoParkwood HospitalCASE MGT INIT ASSESon 39-74-6027RZJJ MGT INIT [facility] W Auto Differential panel (Bld)on 77-22-3587Truucwzaf (Bld) [#/Vol] 0.04 10*3/uLNormal<0.11Irvine HospitalComment on above:Order Comment: Specimen Type: BLOOD SPECIMENOrdering Facility: [facility] Address:[address] [place], [place] [address]Performed By: #### 72067-8 ####CORNELIUS LABORATORYCLIA [id number] [place] [id number] [place] AMERICABasophils/100 WBC (Bld)0.5 %NormalIrvine HospitalComment on above: Order Comment: Specimen Type: BLOOD SPECIMENOrdering Facility: [facility] Address:[address] [place], [place] [address]Performed By: #### 51143- 8 ####CORNELIUS LABORATORYCLIA [id number] [place] [id number] [place] OF AMERICADifferential cell count method Nom (Bld)AutoNormal Irvine HospitalComment on above:Order Comment: Specimen Type: BLOOD SPECIMENOrdering Facility: [facility] Address:[address] [place], [place] [address]Performed By: #### 71670-0 ####CORNELIUS LABORATORYCLIA [id number] [place] [address] [place] Eosinophils (Bld) [#/Vol]0.29 10*3/uLNormal<0.46Fanorthampton state hospital HospitalComment on above:Order Comment: Specimen Type: BLOOD SPECIMENOrdering Facility: [facility] Address:[address] [place], [place] [address]Performed By: #### 19799-0 ####CORNELIUS LABORATORYCLIA [id number] [place] [id number] [place] OF WAYNE HOSPITALEosinophils/100 WBC (Bld)3.6 %NormalIrvine HospitalComment on above:Order Comment: Specimen Type: BLOOD SPECIMENOrdering Facility: [facility] Address:[address] [place], [place] [address]Performed By: #### 63166-2 ####CORNEL[facility]US LABORATORYCLIA [id number] [place] [address] [place] AMERICAErythrocyte distribution width (RBC) [Ratio]15.0 %Vyxvbj02.5-15.0Fanorthampton state hospital HospitalComment on above:Order Comment: Specimen Type: BLOOD SPECIMENOrdering Facility: [facility] Address:[address] [place], [place] [address]Performed By: #### 20532-9 ####CORNEL[facility] LABORATORYCLIA [id number] [place] [id number] [place] OF AMERICAHematocrit (Bld) [Volume fraction]30.9 %Low 36.0-46.0Fanorthampton state hospital HospitalComment on above:Order Comment: Specimen Type: BLOOD SPECIMENOrdering Facility: [facility] Address:[address] [place], [place] [address]Performed By: #### 62719-6 ####CORNELIUS LABORATORYCLIA [id number] [place] [id number] [place] Hemoglobin (Bld) [Mass/Vol]10.2 g/dLLow11.5-15.5Ffederal medical center, devens HospitalComment on above:Order Comment: Specimen Type: BLOOD SPECIMENOrdering Facility: [facility] Address:[address] [place], [place] [address]Performed By: #### 00986-5 ####CORNEL[facility] LABORATORYCLIA [id number] [place] [address] [place] AMERICAImmature granulocytes (Bld) [#/Vol]0.10 10*3/uL High<0.10Irvine HospitalComment on above:Order Comment: Specimen Type: BLOOD SPECIMENOrdering Facility: [facility] Address:[address] [place], [place] [address]Performed By: #### 72946-8 ####CORNEL[facility] LABORATORYCLIA [id number] [place] [address] [place] Immature granulocytes/100 WBC (Bld)1.2 %NormalIrvine HospitalComment on above: Order Comment: Specimen Type: BLOOD SPECIMENOrdering Facility: [facility] Address:[address] [place], [place] [address]Performed By: #### 92853- 8 ####CORNEL[facility] LABORATORYCLIA [id number] [place] [address] [place] WAYNE HOSPITALLymphocytes (Bld) [#/Vol]0.97 10*3/uLLow1.00-4.00 Irvine HospitalComment on above:Order Comment: Specimen Type: BLOOD SPECIMENOrdering Facility: [facility] Address:[address] [place], [place] [address]Performed By: #### 96751-9 ####CORN[facility] LABORATORYCLIA [id number] [place] [address] [place] Lymphocytes/100 WBC (Bld)12.0 %NormalIrvine HospitalComment on above:Order Comment: Specimen Type: BLOOD SPECIMENOrdering Facility: [facility] Address:[address] [place], [place] [address]Performed By: #### 30403- 8 ####CORNEL[facility] LABORATORYCLIA [id number] [place] [id number] [facility] (RBC) [Entitic mass]29.6 atRwodje34.0-34.0Fanorthampton state hospital HospitalComment on above:Order Comment: Specimen Type: BLOOD SPECIMENOrdering Facility: [facility] Address:[address] [place], [place] [address]Performed By: #### 80608-1 ####CORNEL[facility]US LABORATORYCLIA [id number] [address] (RBC) [Mass/Vol] 33.0 g/eRKmuqam08.5-36.0Fanorthampton state hospital HospitalComment on above:Order Comment: Specimen Type: BLOOD SPECIMENOrdering Facility: [facility] Address:[address] [place], [place] [address]Performed By: #### 94972-6 ####CORNEL[facility]US LABORATORYCLIA [id number] [address] (RBC) [Entitic vol]89.6 cQCvxsxl82.0-100.0Fanorthampton state hospital HospitalComment on above:Order Comment: Specimen Type: BLOOD SPECIMENOrdering Facility: [facility] Address:[address] [place], [place] [address]Performed By: #### 95247-0 ####CORNEL[facility] LABORATORYCLIA [id number] [address] OF AMERICAMonocytes (Bld) [#/Vol] 0.81 10*3/uLNormal<0.87Fanorthampton state hospital HospitalComment on above:Order Comment: Specimen Type: BLOOD SPECIMENOrdering Facility: [facility] Address:[address] [place], [place] [address]Performed By: #### 43910-7 ####CORNEL[facility] LABORATORYCLIA [id number] [address] OF AMERICAMonocytes/100 WBC (Bld)10.0 %NormalFanorthampton state hospital HospitalComment on above: Order Comment: Specimen Type: BLOOD SPECIMENOrdering Facility: [facility] Address:[address] [place], [place] [address]Performed By: #### 27769- 8 ####CORNELIUS LABORATORYCLIA [id number] [place] [id number] [place] AMERICANeutrophils (Bld) [#/Vol]5.88 10*3/uLNormal1.45-7.50 Irvine HospitalComment on above:Order Comment: Specimen Type: BLOOD SPECIMENOrdering Facility: [facility] Address:[address] [place], [place] [address]Performed By: #### 61536-7 ####CORNELI[facility] LABORATORYCLIA [id number] [place] [id number] [place] Neutrophils/100 WBC (Bld)72.7 %NormalIrvine HospitalComment on above:Order Comment: Specimen Type: BLOOD SPECIMENOrdering Facility: [facility] Address:[address] [place], [place] [address]Performed By: #### 33993- 8 ####CORNELI[facility] LABORATORYCLIA [id number] [place] [id number] [place] AMERICANucleated RBC (Bld) [#/Vol]10*3/uLNormal<0.01Irvine HospitalComment on above:Order Comment: Specimen Type: BLOOD SPECIMENOrdering Facility: [facility] Address:[address] [place], [place] [address]Performed By: #### 84131-5 ####CORNELIUS LABORATORYCLIA [id number] [place] [id number] [place] AMERICANucleated RBC/100 WBC (Bld) [Ratio]0.0 /100 WBCNormalIrvine HospitalComment on above:Order Comment: Specimen Type: BLOOD SPECIMENOrdering Facility: [facility] Address:[address] [place], [place] [address]Performed By: #### 97434-0 ####CORNELI[facility] LABORATORYCLIA [id number] [place] [id number] [place] AMERICAPlatelet mean volume (Bld) [Entitic vol]8.9 fLLow 9.0-12.7Ffederal medical center, devens HospitalComment on above:Order Comment: Specimen Type: BLOOD SPECIMENOrdering Facility: [facility] Address:[address] [place], [place] [address]Performed By: #### 48748-1 ####VIPINLISSETH LABORATORYCLIA [id number] [place] [id number] [place] Platelets (Bld) [#/Vol]230 10*3/qLQwdqwj097-646Olbjygfz HospitalComment on above:Order Comment: Specimen Type: BLOOD SPECIMENOrdering Facility: [facility] Address:[address] [place], [place] [address]Performed By: #### 86497-1 ####CORNELI[facility] LABORATORYCLIA [id number] [place] [id number] [place] AMERICARBC (Bld) [#/Vol]3.45 10*6/uLLow3.90-5.20Fanorthampton state hospital HospitalComment on above:Order Comment: Specimen Type: BLOOD SPECIMENOrdering Facility: [facility] Address:[address] [place], [place] [address]Performed By: #### 66486-5 ####CORNELIUS LABORATORYCLIA [id number] [place] [id number] [place] AMERICAWBC (Bld) [#/Vol]8.09 10*3/uLNormal3.70-11.00Irvine HospitalComment on above:Order Comment: Specimen Type: BLOOD SPECIMENOrdering Facility: [facility] Address:[address] [place], [place] [address]Performed By: #### 04306-3 ####CORNELIUS LABORATORYCLIA [id number] [place] [id number] [place] OF AMERICACONSULTon 94-94-6484MAQMCIUBgcljrYbbabnzn HospitalEosinophils/100 WBC Auto (Bld)on 61-56-5083Gfvjpnurqnn/100 WBC (Bld)3.6 %Parkwood HospitalErythrocyte distribution width Auto (RBC) [Ratio]on 33-93-1050Swnvtsjcwum distribution width (RBC) [Ratio]15.0 %11.5-15.0[facility] Hematocrit Auto (Bld) [Volume fraction]on 15-41-3484Efamxihxrb (Bld) [Volume fraction]30.9 %36.0-46.0[facility] HospitalHemoglobin [Mass/volume] in Bloodon 79-26-3184Jzdntxvqex (Bld) [Mass/Vol]10.2 g/dL11.5-15.5 [facility] HospitalLaboratory - Chemistry and Chemistry - challengeon 17-88-5207Ylgtxvf [Mass/Vol]8.7 mg/dL8.5-10.2FMcCullough-Hyde Memorial HospitalChloride [Moles/Vol]107 mmol/K04-835BtbytmtrbParkwood HospitalCO2 [Moles/Vol]25 mmol/I78-46HdbwmfqjfParkwood HospitalCreatinine [Mass/Vol]0.69 mg/dL0.58-0.96[facility] HospitalGlucose [Mass/Vol] 84 mg/hZ77-89OprtkspoiParkwood HospitalComment on above:The [place]ron[place] Diabetes Association (ADA) provides guidance for cutoff [...] diabetes.Reference: Standardsof Medical Care in Diabetes 2016, [place] Diabetes Association. Diabetes Care. 2016.39(Suppl 1). Potassium [Moles/Vol]3.5 mmol/L3.7-5.1FOhioHealth Riverside Methodist Hospitalodium [Moles/Vol]142 mmol/E185-178OnqiezacuParkwood HospitalUrea nitrogen [Mass/Vol]11 mg/dL7-21[facility] HospitalLaboratory - Hematology and Cell countson 91-89-4165Suxajlaoslq (Bld) [#/Vol]0.29 10*3/uL<0.46[facility] HospitalImmature granulocytes (Bld) [#/Vol]0.10 10*3/uL<0.10 [facility] HospitalImmature granulocytes/100 WBC (Bld)1.2 % [facility] HospitalLeukocytes [#/volume] corrected for nucleated erythrocytes in Blood by Automated counon 10-13-9845VTU corrected for nucl RBC Auto (Bld) [#/Vol]8.09 k/uL3.70-11.00[facility] Lymphocytes Auto (Bld) [#/Vol]on 83-21-6160Piirzabqyoz (Bld) [#/Vol]0.97 10*3/uL 1.00-4.00[facility] HospitalLymphocytes/100 WBC Auto (Bld)on 36-33-1340Tfmqruqxwuw/100 WBC (Bld)12.0 %[facility] Medical CenterH Auto (RBC) [Entitic mass]on 44-78-2452XNL (RBC) [Entitic mass]29.6 pg26.0-34.0 [facility] HospitalMCHC Auto (RBC) [Mass/Vol]on 25-42-0696VQXH (RBC) [Mass/Vol]33.0 g/dL30.5-36.0[facility] HospitalMCV Auto (RBC) [Entitic vol]on 90-29-4789GTQ (RBC) [Entitic vol]89.6 fL80.0-100.0 [facility] HospitalMonocytes Auto (Bld) [#/Vol]on 08-26-2023 Monocytes (Bld) [#/Vol]0.81 10*3/uL<0.87[facility] Monocytes/100 WBC Auto (Bld)on 21-72-5506Quakiedzq/100 WBC (Bld)10.0 %[facility] HospitalNeutrophils Auto (Bld) [#/Vol]on 51-56-3374Yswnodfcwze (Bld) [#/Vol]5.88 10*3/uL1.45-7.50[facility] Neutrophils/100 WBC Auto (Bld)on 72-66-8163Hcgatqusoxj/100 WBC (Bld)72.7 % [facility] HospitalNo Panel Informationon 48-69-9260Otjitjkzo GFR (CKD-EPI)93 mL/min/1.73m???>=60[facility] HospitalComment on above:Estimated Glomerular Filtration Rate (eGFR) [...] reflect actual GFR.Nucleated RBC Auto (Bld) [#/Vol]on 05-57-5860Muxujeyvh RBC (Bld) [#/Vol]10*3/uL<0.01[facility] HospitalNucleated erythrocytes [Presence] in Blood by Automated counton 08-12-2265Blghsnyvy RBC Auto Ql (Bld)0.0 /100{WBC}[facility]wood HospitalPlatelet mean volume Auto (Bld) [Entitic vol]on 38-61-1858Dsulunkh mean volume (Bld) [Entitic vol]8.9 fL9.0-12.7FMcCullough-Hyde Memorial Hospital Platelets Auto (Bld) [#/Vol]on 48-53-9193Kqktohfer (Bld) [#/Vol]230 10*3/uL 150-400Parkwood HospitalRBC Auto (Bld) [#/Vol]on 74-64-4687YPM (Bld) [#/Vol]3.45 10*6/uL3.90-5.20[facility]orial Health Systemerum or plasma anion gap determinationon 27-89-1808Jkwri gap [Moles/Vol]10 mmol/L9-18 [facility] HospitalTHERAPY NTon 25-74-7029NIHSABS NTNoTempleton Developmental Center HospitalTHERAPY NTNormTewksbury State Hospital HospitalANES POSTPROC EVALon 23-59-3083KOOL POSTPROC EVALNoTempleton Developmental Center HospitalANES PRE-OPon 54-30-8750IHCC PRE-OPNormal [facility] HospitalBRIEF OP NOTon 56-39-7854ANCCF OP [facility] NURSING PROGon 33-88-2773REHNQIL PROGNormalArbour-Hri HospitalNURSING PROGNormal [facility]vine HospitalOPERATIVE NOon 86-18-4777KCOTNWDNF NONTobey Hospital SURGICAL PATHOLOGYon 02-50-2655PDJOCGS REPORT DETAILNoHarley Private Hospital Comment on above:Order Comment: Specimen Type: TISSUE SPECIMENOrdering Facility: [facility] Address: [address] [place] [address]Kcxldb Comment: Amended: 09/13/2023 3:21 PMThis report is [...] at 6:21 PM EST.Performed By: #### S ####[facility] LABORATORYCLIA [id number] [address] LABCLIA [id number] [address]ETBLMACON GENERAL HOSPITAL FOR ADDITIONAL BIOMARKERS/MOLECULAR STUDIESNo evidence of residual invasive adenocarcinomaNoHarley Private HospitalComment on above:Order Comment: Specimen Type: TISSUE SPECIMENOrdering Facility: [facility] Address: [address] [place], [place] [address]Performed By: #### S ####[facility] LABORATORYCLIA [id number] [address] LABCLIA [id number] [address]CASE REPORTNoHarley Private HospitalComment on above:Order Comment: Specimen Type: TISSUE SPECIMENOrdering Facility: [facility] Address: [address] [place] [address]Unscab Comment: Surgical Pathology Report Case: [id number] Provider: Laisha Singer MD Collected: 08/25/2023 11:42 AMOrdering Location: [facility] Received: 08/25/2023 12:13 PM Operating RoomPathologist: Oscar Marshall MDSpecimens: A) - COLON RESECTION, low anterior resection B) - MARGIN GI, distal marginPerformed By: #### S ####CORNELIUS LABORATORYCLIA [id number] [address] LABCLIA [id number] [address] HISTORYGood Samaritan Medical Center HospitalComment on above:Order Comment: Specimen Type: TISSUE SPECIMENOrdering Facility: [facility] Address: [address] [place], [place] [address]Result Comment: Pre-op diagnosis:Rectal cancer (HCC) [C20]Performed By: #### S ####CORNELIUS LABORATORYCLIA [id number] [address] LABCLIA [id number] [address] FINAL [facility] HospitalComment on above:Order Comment: Specimen Type: TISSUE SPECIMENOrdering Facility: [facility] Address: [address] [place], [place] [address]Result Comment: A. Sigmoid colon and rectum, resection:- No evidence of residual invasive adenocarcinoma (see synoptic report).- Fifteen lymph nodes, negative for malignancy (0/15).B. Additional distal margin, excision:- Segment of rectum with no diagnostic abnormality.JE 4Amendment electronically signed by Oscar Marshall MD on 09/13/2023 at 3:24 PM Performed By: #### S ####CORNELIUS LABORATORYCLIA [id number] [place] [id number] [facility] LABCLIA [id number] [address]ETFINLemuel Shattuck Hospital HospitalComment on above:Order Comment: Specimen Type: TISSUE SPECIMENOrdering Facility: [facility] Address: [address] [place], [place] [address]Fyotia Comment: Diagnostic interpretation performed at [facility], [address] [place] [address] CLIA# [id number] Director: Dheeraj Suarez M.D.Performed By: #### S ####[facility] LABORATORYCLIA [id number] [place] [id number] [facility] LABCLIA [id number] [place] [id number] [facility]ITALGROSS DESCRIPTIONNormalArbour-Hri HospitalComment on above:Order Comment: Specimen Type: TISSUE SPECIMENOrdering Facility: [facility] Address: [address] [place], [place] [address]Result Comment: A. COLON RESECTIONReceived in formalin designated [...] with a wall thickness of 0.9 cm. Wooling Machine Operator sections are submitted as follows: A1 ulcer [...] 28, 2023 1:59 PMGross examination performed at [facility], [address] [place] [address]P. MARGIN GIReceived in formalin designated distal margin is a segment of bowel that measures 0.5 cm in length and 1.2 cm in diameter. The specimen cannot be inked due to the size of the specimen. The specimen is serially sectioned and entirely submitted in one cassette.WE August 25, 2023 1:52 PMGross examination performed at [facility], [address] [place] [address]Icviafwso results: Previously reported on 08/31/2023 at 6:21 PM EST.Performed By: #### S ####LEONA LABORATORYCLIA [id number] [place] [address] [facility] LABCLIA [id number] [address] [address] [place] STATES OF AMERICASYNOPTIC REPORTNormal [facility]ri HospitalComment on above:Order Comment: Specimen Type: TISSUE SPECIMENOrdering Facility: [facility] Address: [address] [place], [place] [address]Kkyskp Comment: COLON AND RECTUM: Resection, Including Transanal Disk Excision of Rectal NeoplasmsCOLON AND RECTUM: RESECTION - All Yjlpbdyrc4zl Edition - Protocol posted: 12/29/2021PECIMEN Procedure: Low [...] Descriptors: y (post-treatment) pT Category:pT0 pN Category: [id number] By: #### S ####[facility] LABORATORYCLIA [id number] [address] LABCLIA [id number] [address]ETBasophils Auto (Bld) [#/Vol] Ordered By: David Reyes on 24-89-8145Xmfujcury (Bld) [#/Vol]0.0 10*3/uL 0.0-0.2FMcCullough-Hyde Memorial HospitalBasophils/100 WBC Auto (Bld)Ordered By: David Reyes on 74-23-7767Oincagkxa/100 WBC (Bld)1.0 %.[facility]wood HospitalCalcium [Mass/volume] in Serum or PlasmaOrdered By: David Reyes on 19-85-8012Edxvfru [Mass/Vol]8.6 mg/dL8.6-10.3FMcCullough-Hyde Memorial HospitalCarbon dioxide, total [Moles/volume] in Serum or PlasmaOrdered By: David Reyes on 29-26-1010SX8 [Moles/Vol]24.5 mmol/L21.0-31.0[facility] HospitalChloride [Moles/volume] in Serum or PlasmaOrdered By: David Reyes on 32-01-0565Mlqlsqkt [Moles/Vol]109 mmol/A85-895ZiyholdmoParkwood HospitalCreatinine [Mass/volume] in Serum or PlasmaOrdered By: David Reyes on 76-11-8883Jlplfussxb [Mass/Vol]0.74 mg/dL0.60-1.20[facility] HospitalEosinophils Auto (Bld) [#/Vol]Ordered By: David Reyes on 25-08-7014Ddvwbyvyqux (Bld) [#/Vol]0.2 10*3/uL0.0-0.45[facility] HospitalEosinophils/100 WBC Auto (Bld)Ordered By: David Reyes on 06-26-2023 Eosinophils/100 WBC (Bld)4.3 %.[facility]wood HospitalErythrocyte distribution width Auto (RBC) [Ratio]Ordered By: David Reyes on 06-26-2023 Erythrocyte distribution width (RBC) [Ratio]15.0 %11.9-15.3FMcCullough-Hyde Memorial HospitalGlucose [Mass/volume] in Serum or PlasmaOrdered By: David Reyes 83-47-4239Uakkafb [Mass/Vol]91 mg/tW56-913AjdpbdjavParkwood Hospital Comment on above:ADA recommended reference rangeRandom Glucose Reference Range is dependent on time and content of last meal. Glucose of more than 200 mg/dL in a nonstressed, ambulatory subject supports the diagnosisof Diabetes Mellitus. Hematocrit Auto (Bld) [Volume fraction]Ordered By: David Reyes on 06-26-2023 Hematocrit (Bld) [Volume fraction]33.0 %34.0-46.4FMcCullough-Hyde Memorial HospitalHemoglobin [Mass/volume] in BloodOrdered By: David Reyes 06-26-2023 Hemoglobin (Bld) [Mass/Vol]11.1 g/dL11.8-15.4FMcCullough-Hyde Memorial Hospital Leukocytes [#/volume] corrected for nucleated erythrocytes in Blood by Automated counOrdered By: David Reyes on 07-92-8681QAD corrected for nucl RBC Auto (Bld) [#/Vol]4.3 10*3/uL3.8-11.6FMcCullough-Hyde Memorial HospitalLymphocytes Auto (Bld) [#/Vol]Ordered By: David Reyes on 12-02-5236Bdbtxjweypw (Bld) [#/Vol]0.9 10*3/uL1.00-4.8[facility] HospitalLymphocytes/100 WBC Auto (Bld)Ordered By: David Reyes on 09-84-9055Diwdfrdkkyk/100 WBC (Bld)21.8 %.[facility] Medical CenterH Auto (RBC) [Entitic mass]Ordered By: David Reyes on 00-98-5205NRU (RBC) [Entitic mass]29.7 pg24.7-34.3FMcCullough-Hyde Memorial HospitalMCHC Auto (RBC) [Mass/Vol]Ordered By: Dvaid Reyes on 08-32-2038GAEK (RBC) [Mass/Vol]33.5 g/dL32.0-35.0[facility] HospitalMCV Auto (RBC) [Entitic vol]Ordered By: David Reyes on 37-90-5573OJC (RBC) [Entitic vol]88.6 bQ60-642ZjwbqusldParkwood HospitalMonocytes Auto (Bld) [#/Vol]Ordered By: David Reyes on 03-32-9461Fszagukdk (Bld) [#/Vol]0.4 10*3/uL0.0-0.8[facility] HospitalMonocytes/100 WBC Auto (Bld) Ordered By: David Reyes on 88-56-0198Lkzusesdy/100 WBC (Bld)8.2 %.[facility] HospitalNeutrophils Auto (Bld) [#/Vol]Ordered By: David Reyes on 35-93-7798Xrsgibezlgr (Bld) [#/Vol]2.8 10*3/uL1.8-7.7FMcCullough-Hyde Memorial HospitalNeutrophils/100 WBC Auto (Bld)Ordered By: David Reyes on 48-38-2332Oojvyhrussi/100 WBC (Bld)64.7 %.[facility] HospitalNo Panel InformationOrdered By: David Reyes on 55-47-4296Opoqlzjpa GFR (CKD-EPI) > 60.0 mL/MinParkwood HospitalPharmacy Creatinine Clearance (Chem57.31[facility] HospitalNucleated erythrocytes [Presence] in Blood by Automated countOrdered By: David Reyes on 30-42-9668Uzizqcqqr RBC Auto Ql (Bld)0.0 /100{WBC}0-0.5FMcCullough-Hyde Memorial HospitalPlatelet mean volume Auto (Bld) [Entitic vol]Ordered By: David Reyes on 40-73-0900Qtgtgcxp mean volume (Bld) [Entitic vol]6.5 fL6.3-10.7FMcCullough-Hyde Memorial Hospital Platelets Auto (Bld) [#/Vol]Ordered By: David Reyes on 60-43-5253Uhdkkpjxw (Bld) [#/Vol]306 10*3/pF105-727ZnkeaqumuParkwood HospitalPotassium [Moles/volume] in Serum or PlasmaOrdered By: David Reyes on 06-26-2023 Potassium [Moles/Vol]4.1 mmol/L3.5-5.1FMcCullough-Hyde Memorial HospitalRBC Auto (Bld) [#/Vol]Ordered By: David Reyes on 39-74-7483QLR (Bld) [#/Vol]3.73 10*6/uL3.60-5.00[facility] Systemerum or plasma anion gap determinationOrdered By: David Reyes on 50-13-0700Gvzsk gap [Moles/Vol]11.6 mmol/L6.0-15.0[facility] Systemodium [Moles/volume] in Serum or PlasmaOrdered By: David Reyes on 02-47-4062Dzsvyg [Moles/Vol]141 mmol/L 136-145Park[facility] HospitalUrea nitrogen [Mass/volume] in Serum or PlasmaOrdered By: David Reyes on 51-67-5879Dxhd nitrogen [Mass/Vol]21 mg/dL 7-25Parkwood HospitalWBC Auto (Bld) [#/Vol]Ordered By: David Reyes on 82-68-1068MBF (Bld) [#/Vol]4.3 10*3/uL3.8-11.6FMcCullough-Hyde Memorial HospitalMRI RECTUM WO/W IVCONon 76-63-8663Wzxennyhn ClinicCNPNon 29-18-9879HVCAGxmaycRjkxamwb HospitalSIGMOIDOSCOPYon 64-36-1102Yokrprxef Clinic Creatine kinase [Enzymatic activity/volume] in Serum or PlasmaOrdered By: Jordan Hare on 30-38-5986IG [Catalytic activity/Vol]36 U/G82-520NpgvouzswParkwood HospitalTroponin I.cardiac [Mass/volume] in Serum or Plasma by Detection limit <= 0.01 ng/Ordered By: Jordan Hare on 51-98-2436Rrucncem I.cardiac DL <= 0.01 ng/mL [Mass/Vol]5.8 pg/mL0.0-15.0[facility] HospitalActivated partial thromboplastin time (aPTT) in platelet poor plasma by coagulation aOrdered By: Gregory Rangel on 39-47-4391oHMT Coag (PPP) [Time]27.9 s 25.1-36.5FMcCullough-Hyde Memorial HospitalComment on above:A hematocrit value greater than 55% may lead to inaccurate results in coagulation testing. Patients having hematocrit values >55% require a special collection tube for coagulation studies. Please contact the laboratory at [phone] for redraw instructions. Alanine aminotransferase [Enzymatic activity/volume] in Serum or PlasmaOrdered By: Gregory Rangel on 68-09-9411SUT [Catalytic activity/Vol]18 U/L7-52Park[facility] HospitalAlbumin [Mass/volume] in Serum or Plasma by Bromocresol green (BCG) dye binding methoOrdered By: Gregory Rangel on 02-52-5824Yfrqiaz BCG dye [Mass/Vol]4.5 g/dL3.5-5.7FMcCullough-Hyde Memorial HospitalAlkaline phosphatase [Enzymatic activity/volume] in Serum or PlasmaOrdered By: Gregory Rangel on 29-50-1717TMC [Catalytic activity/Vol]50 U/J85-703TljtjtsnuParkwood HospitalAspartate aminotransferase [Enzymatic activity/volume] in Serum or PlasmaOrdered By: Gregory Rangel on 69-84-8857OBG [Catalytic activity/Vol]16 U/L 13-39Park[facility] HospitalBasophils Auto (Bld) [#/Vol]Ordered By: Gregory Rangel on 01-40-2952Xgcvlphah (Bld) [#/Vol]0.0 10*3/uL0.0-0.2FMcCullough-Hyde Memorial HospitalBasophils/100 WBC Auto (Bld)Ordered By: Gregory Rangel on 17-55-4128Cgzonbbbv/100 WBC (Bld)0.7 %.[facility] Bilirubin.direct [Mass/volume] in Serum or PlasmaOrdered By: Gregory Rangel on 35-04-8687Gpyitrrsk.direct [Mass/Vol]0.10 mg/dL0.03-0.18FMcCullough-Hyde Memorial HospitalBilirubin.total [Mass/volume] in Serum or PlasmaOrdered By: Gregory Rangel on 61-09-0069Tqijzooma [Mass/Vol]0.5 mg/dL0.3-1.0[facility] HospitalCalcium [Mass/volume] in Serum or PlasmaOrdered By: Gregory Rangel on 41-88-7430Swsvmmw [Mass/Vol]9.4 mg/dL8.6-10.3FMcCullough-Hyde Memorial HospitalCarbon dioxide, total [Moles/volume] in Serum or PlasmaOrdered By: Gregory Rangel on 57-40-8642OL4 [Moles/Vol]23.1 mmol/L21.0-31.0[facility] HospitalChloride [Moles/volume] in Serum or PlasmaOrdered By: Gregory Rangel on 48-50-0023Kcxhtgjl [Moles/Vol]102 mmol/Z82-738QiabvahfuParkwood Hospital Creatine kinase [Enzymatic activity/volume] in Serum or PlasmaOrdered By: Jordan Hare on 03-16-5889LW [Catalytic activity/Vol]43 U/P16-769OvapxkaeyParkwood HospitalCreatinine [Mass/volume] in Serum or PlasmaOrdered By: Gregory Rangel on 52-85-9102Lmugaknytn [Mass/Vol]0.74 mg/dL0.60-1.20[facility] HospitalEosinophils Auto (Bld) [#/Vol]Ordered By: Gregory Rangel on 65-29-1587Grbinimwlti (Bld) [#/Vol]0.1 10*3/uL0.0-0.45Park[facility] HospitalEosinophils/100 WBC Auto (Bld)Ordered By: Gregory Rangel on 33-07-9162Xbtvjqdtkjg/100 WBC (Bld)1.1 %.[facility] Erythrocyte distribution width Auto (RBC) [Ratio]Ordered By: Gregory Rangel on 63-02-6709Vokvohwigqz distribution width (RBC) [Ratio]15.0 %11.9-15.3FMcCullough-Hyde Memorial HospitalGlobulin Calc (S) [Mass/Vol]Ordered By: Gregory Rangel on 18-68-9872Rlunbtak (S) [Mass/Vol]2.5 g/dLParkwood Hospital Glucose [Mass/volume] in Serum or PlasmaOrdered By: Gregory Rangel on 04-05-2023 Glucose [Mass/Vol]109 mg/jU11-599XsdfqkvckParkwood HospitalComment on above:ADA recommended reference rangeRandom Glucose Reference Range is dependent on time and content of last meal. Glucose of more than 200 mg/dL in a nonstressed, ambulatory subject supports the diagnosisof Diabetes Mellitus. Hematocrit Auto (Bld) [Volume fraction]Ordered By: Gregory Rangel on 04-05-2023 Hematocrit (Bld) [Volume fraction]35.7 %34.0-46.4FMcCullough-Hyde Memorial HospitalHemoglobin [Mass/volume] in BloodOrdered By: Gregory Rangel on 04-05-2023 Hemoglobin (Bld) [Mass/Vol]11.7 g/dL11.8-15.4FMcCullough-Hyde Memorial Hospital INR in Platelet poor plasma by Coagulation assayOrdered By: Gregory Rangel on 19-70-3376TMX Coag (PPP) [Relative time]1.0 {INR}Parkwood HospitalComment on above:INR Therapeutic Range A) Pre- [...] by Automated counOrdered By: Gregory Rangel on 40-60-3031TJG corrected for nucl RBC Auto (Bld) [#/Vol]6.6 10*3/uL3.8-11.6FMcCullough-Hyde Memorial HospitalLipase [Enzymatic activity/volume] in Serum or PlasmaOrdered By: Gregory Rangel on 40-41-3075Kjegtd [Catalytic activity/Vol]13.0 U/L11.0-82.0Park[facility] HospitalLymphocytes Auto (Bld) [#/Vol]Ordered By: Gregory Rangel on 04-43-0600Dwlqomwvuuw (Bld) [#/Vol]2.6 10*3/uL1.00-4.8Park[facility] HospitalLymphocytes/100 WBC Auto (Bld)Ordered By: Gregory Rangel on 43-55-3020Zjmumduvbos/100 WBC (Bld)38.8 %.[facility] Auto (RBC) [Entitic mass]Ordered By: Gregory Rangel on 63-34-6903GJG (RBC) [Entitic mass]27.2 pg24.7-34.3FMcCullough-Hyde Memorial HospitalMCHC Auto (RBC) [Mass/Vol]Ordered By: Gregory Rangel on 30-52-8161ULXQ (RBC) [Mass/Vol]32.7 g/dL 32.0-35.0Park[facility] HospitalMCV Auto (RBC) [Entitic vol]Ordered By: Gregory Rangel on 98-93-7781ZIL (RBC) [Entitic vol]83.4 bO87-287DtztxsepaParkwood HospitalMonocyte distribution width [Entitic volume] in Blood by AutomatedOrdered By: Gregory Rangel on 96-30-4657Oyysvepm distribution width Auto (Bld) [Entitic vol]19.16 %0.00-20.00Parkwood HospitalMonocytes Auto (Bld) [#/Vol]Ordered By: Gregory Rangel on 57-94-7984Lthfkzfsm (Bld) [#/Vol] 0.5 10*3/uL0.0-0.8Parkwood HospitalMonocytes/100 WBC Auto (Bld) Ordered By: Gregory Rangel on 57-99-7337Bbukchwdb/100 WBC (Bld)7.5 %.[facility] HospitalNatriuretic peptide B [Mass/Vol]Ordered By: Gregory Rangel on 20-39-6041Rbpqxbvmtuk peptide B (Bld) [Mass/Vol]158.0 pg/mL5-100Parkwood HospitalNeutrophils Auto (Bld) [#/Vol]Ordered By: Gregory Rangel on 91-66-0090Ekxqbpwemhq (Bld) [#/Vol]3.4 10*3/uL1.8-7.7FMcCullough-Hyde Memorial HospitalNeutrophils/100 WBC Auto (Bld)Ordered By: Gregory Rangel on 04-05-2023 Neutrophils/100 WBC (Bld)51.9 %.Parkwood HospitalNo Panel InformationOrdered By: Gregory Rangel on 68-58-1143Jfirrrleu GFR (CKD-EPI)> 60.0 mL/MinParkwood HospitalPharmacy Creatinine Clearance (Chem54.90 Park[facility] HospitalNucleated erythrocytes [Presence] in Blood by Automated countOrdered By: Gregory Rangel on 52-86-9633Wpjtyumzy RBC Auto Ql (Bld) 0.1 /100{WBC}0-0.5FMcCullough-Hyde Memorial HospitalPlatelet mean volume Auto (Bld) [Entitic vol]Ordered By: Gregory Rangel on 05-03-6951Zqyqpvdz mean volume (Bld) [Entitic vol]6.6 fL6.3-10.7FMcCullough-Hyde Memorial HospitalPlatelets Auto (Bld) [#/Vol]Ordered By: Gregory Rangel on 53-78-8643Eaueztweb (Bld) [#/Vol]312 10*3/zC482-574MsdcwoqiwParkwood HospitalPotassium [Moles/volume] in Serum or PlasmaOrdered By: Gregory Rangel on 56-39-5287Jlvzkcroh [Moles/Vol]3.5 mmol/L 3.5-5.1FMcCullough-Hyde Memorial HospitalProtein [Mass/volume] in Serum or Plasma Ordered By: Gregory Rangel on 17-02-5602Klefyff [Mass/Vol]7.0 g/dL6.4-8.9Park[facility] HospitalProthrombin time (PT)Ordered By: Gregory Rangel on 78-57-9857EW Coag (PPP) [Time]11.9 s9.0-12.9[facility] Comment on above:A hematocrit value greater than 55% may lead to inaccurate results in coagulation testing. Patientshaving hematocrit values >55% require a special collection tube for coagulation studies. Please contact the laboratory at [phone] for redraw instructions.RBC Auto (Bld) [#/Vol]Ordered By: Gregory Rangel on 83-63-3725GOJ (Bld) [#/Vol]4.28 10*6/uL3.60-5.00[facility] Systemerum or plasma albumin/globulin mass ratioOrdered By: Gregory Rangel on 95-25-8064Vtfhbro/Globulin [Mass ratio]1.8 {ratio}[facility] Systemerum or plasma anion gap determinationOrdered By: Gregory Rangel on 14-73-8816Jwnyf gap [Moles/Vol]17.4 mmol/L6.0-15.0[facility] Systemerum or plasma non-glucuronidated bilirubin measurement (mass/volume) Ordered By: Gregory Rangel on 92-81-4517Vexadihtq.indirect [Mass/Vol]0.4 mg/dL [facility] Systemodium [Moles/volume] in Serum or PlasmaOrdered By: Gregory Rangel on 13-67-9709Ywlxwe [Moles/Vol]139 mmol/O212-290UdtcirnmcParkwood HospitalTroponin I.cardiac [Mass/volume] in Serum or Plasma by Detection limit <= 0.01 ng/Ordered By: Jordan Hare on 76-20-0319Gmyjoawr I.cardiac DL <= 0.01 ng/mL [Mass/Vol]18.5 pg/mL0.0-15.0Park[facility] HospitalUrea nitrogen [Mass/volume] in Serum or PlasmaOrdered By: Gregory Rangel on 28-20-2552Xlkm nitrogen [Mass/Vol]20 mg/dL7-25Park[facility] HospitalWBC Auto (Bld) [#/Vol]Ordered By: Gregory Rangel on 00-01-5895GMW (Bld) [#/Vol]6.6 10*3/uL3.8-11.6FOhioHealth Riverside Methodist HospitalIGMOIDOSCOPYon 60-13-5068Kfslnowcl ClinicALLIED HEALTH 41-54-4133TTEWQJMadelia Community HospitalMR Pelvis WO contraston 73-66-9771WUTTIGNVMI: 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 Stage: T3c N+ MRF: Involved (tumor margin within 1 mm of MRF Sphincter involvement: No. Suspicious extra mesorectal lymph nodes: Yes EMVI: Yes. Extension Service Supervisor: PSCCorrie Transcribe Date/Time: Mar 15 2023 1:15P Dictated by : ZAYNAB NDIAYE MD This examination was interpreted and the report reviewed and electronically signed by: ZAYNAB NDIAYE MD on Mar 15 2023 1:51PM [facility] RAD[facility]OLOG[facility]* * *Final Report* * * DATE OF EXAM: Mar 15 2023 1:09PM [facility] 0754 - MRI RECTUM WO/W IVCON / [...] Grade 1 anterolisthesis of L5 on S1 [facility] RADIOLOGYProviderConnecticut [facility] - 03/15/2023 * * *Final Report* * * DATE OF EXAM: Mar 15 2023 1:09PM [facility] 0754 - MRI RECTUM WO/W IVCON / [...] extra mesorectal lymph nodes: Yes EMVI: Yes. Extension Service Supervisor: HENRY Transcribe Date/Time: Mar 15 2023 1:15P Dictated by : ZAYNAB NDIAYE MD This examination was interpreted and the report reviewed and electronically signed by: ZAYNAB NDIAYE MD on Mar 15 2023 1:51PM EST [facility] CenterRad[facility] Study observation (narrative)[facility] Pelvis WO contrastOrdered By: Ccf Provider on 61-12-6573Zjyufhrus [facility] CenterMRI RECTUM WO/W IVCONon 09-86-0858SGJ RECTUM WO/W IVCONNormalFanorthampton state hospital HospitalCreatinine [Mass/volume] in Serum or PlasmaOrdered By: Imad Asaad on 00-51-7364Yiagtbxazl [Mass/Vol]0.52 mg/dL0.60-1.20Park[facility] HospitalNo Panel InformationOrdered By: Imad Asaad on 67-24-3799Bivoabpat GFR (CKD-EPI)> 60.0 mL/MinParkwood HospitalPharmacy Creatinine Clearance (Chem59.72 [facility] Systemerum or plasma carcinoembryonic antigen measurement (mass/volume)Ordered By: Imad Asaad on 33-17-6528Rnbjxymvvkzvlwce Ag [Mass/Vol]2.7 ng/mL0.0-3.0Park[facility] HospitalUrea nitrogen [Mass/volume] in Serum or PlasmaOrdered By: Imad Asaad on 32-61-7411Uijk nitrogen [Mass/Vol]17 mg/dL7-25Park[facility] HospitalPAP ACOG PANEL 2: 30 to 65on 11-10-2022..NormalThe [facility] Campus Medical CenterComment on above:Performed By: #### [id number] #### [facility] [address] [address] [address] Ghulam Durbin Gdln ACOG TestingCommentNoAshtabula General HospitalComment on above:Result Comment: <21 or >65 or no age providedPerformed By: #### [id number] #### [facility] [address] [address] [address] Ghulam PadillaDIAGNOSIS:CommentNoAshtabula General HospitalComment on above: Result Comment: NEGATIVE FOR INTRAEPITHELIAL LESION OR MALIGNANCY. PREDOMINANCE OF COCCOBACILLI CONSISTENT WITH SHIFT IN VAGINAL JONATHAN IS PRESENT.Performed By: #### [id number] #### [address] [address] Dr[address] Ghulam PadillaMethodology:CommentNationwide Children's Hospital on above: Result Comment: This liquid based ThinPrep(R) pap test was screened with the use of an image guided system.Performed By: #### [id number] #### [address] [address] Dr[address] Ghulam PadillaNote:CommentNationwide Children's Hospital on above:Result Comment: The Pap smear is a screening test designed to aid in the detection of premalignant and malignant conditions of the uterine cervix. It is not a diagnostic procedure and should not be used as the sole means of detecting cervical cancer. Both false-positive and false-negative reports do occur. .Performed By: #### [id number] #### [address] [address] Dr. Ghulam PadillaPerformed by:CommentNationwide Children's Hospital on above: Result Comment: Maggy Martinez, Shuttle Bus Driver (ASCP)Performed By: #### [id number] #### [address] [address] Dr. Ghulam PadillaSpecimen adequacy:CommentNationwide Children's Hospital on above:Result Comment: Satisfactory for evaluation. Endocervical and/or squamous metaplastic cells (endocervical component) are present. Areas of partially obscuring inflammatory exudate are present.Performed By: #### [id number] #### [address] [address] Dr. Ghulam PadillaXR DEXA BONE DENSITYon 46-26-2417EA DEXA BONE DENSITYEXAMINATION: XR DEXA BONE DENSITY, [...] Electronically authenticated by: ANI CAN Date: 2022-11-07 09:21[facility]Office Visit (Cardiology)on 96-94-8077Inzywq-up visit Diagnoses/Problems Assessed Preoperative cardiovascular examination (V72.81) (Z01.810) Hypertension (401.9) (I10) Abnormal stress test (794.39) (R94.39) Overweight with body mass index (BMI) of 25 to 25.9 in adult (278.02,V85.21) (E66.3,Z68.25) Orders Overweight with body mass index (BMI) of 25 to 25.9 in adult Healthy Weight Tips; Status:Complete; Done: 19Bvy4122 Some eating tips that can help you lose weight.; Status:Complete; Done: 50Gua3081 Preoperative cardiovascular examination IO EKG Electrocardiogram- 12 Lead; Status:Complete; Done: 87Kdc2609 Patient Instructions Please bring all medicines, vitamins, [...] negative for complaint. Vitals Vital Signs Recorded: 91Wuw9964 02:49PMRecorded: 47Jtt3260 02:48PM Lmiwglxv728, LUE, Nnsgjwg224, RUE, Sitting Eygafvvpa77, LUE, Upmmqno25, RUE, Sitting Heart Rate76, Apical Height5 ft 4.5 in Jiflln440 lb BMI Tiysnteaty52.86 kg/m2 BSA Calculated1.76 Tobacco Useb) No PHQ-2 #1. Over the last 2 weeks have you felt down, depressed or hopeless? (If yes, answer PHQ-9 below)No PHQ-2 #2. Over the last 2 weeks have you felt little interest or pleasure in doing things? (If yes,(more content not included)...NormalUH TouchworksTobacco Screening.on 26-07-6005Vyhed depression screening assessmentNoTri-State Memorial Hospital [employer] DO Work Phone: Fall risk assessmenta) No falls within the last year [facility] [employer] 250 DO Work Phone: Tobacco use status CPHSb) NoMCoulee Medical Center numares GmbH 250 DO Work Phone: XR knee RT 4V*on 20-57-7758DK knee RT 4V*[facility] [employer] Other XR knee RT 4V*[facility] [employer] Other XR knee RT 4V*[address] [facility] [employer] Other XR knee RT 4V*[address] [employer] Other xr knee RT 4V*XRTrousdale Medical Center [employer] Other XR knee RT 4V*[facility] [employer] Other XR knee RT 4V*Patient: Evan Gill MR#: [id number] [facility] [employer] Other XR knee RT 4V*89[facility] [employer] Other XR knee RT 4V*: 1955 Acct:[id number] [employer] Other XR knee RT 4V*Age/Sex: 66 / F ADM Date: 08/18/22[facility] CenterWonder[facility] Other XR knee RT 4V*Loc: [facility]XD Room: Type: [facility]AREAm[facility] [employer] Other XR knee RT 4V*Attending Dr: Caroline Rangel II, MD [employer] Other XR knee RT 4V*Copies to: Caroline Rangel MDHuntley [employer] Other XR knee RT 4V*Ordering Provider: Caroline Rangel MD [employer] Other XR knee RT 4V*Date of Service: 08/18/22[place] [employer] Other XR knee RT 4V* XR/XR knee RT 4V*: Bilateral primary osteoarthritis of kneeHuntley [employer] Other XR knee RT 4V*XR knee RT 4V* 08/18/2022 8:00 [facility] PHOENIXAmagi Media Labs Other XR knee RT 4V*SIGNS AND SYMPTOMS: Right chronic lateral knee painHuntley [employer] Other XR knee RT 4V*PROTOCOL: Frontal, lateral, and oblique radiographs of the right kneeHuntley [employer] Other XR knee RT 4V*COMPARISON: 02/11/2022[employer] Other XR knee RT 4V*FINDINGS:[employer] Other XR knee RT 4V*There is severe narrowing of the medial weightbearing joint space with an osteochondral defectHuntley [employer] Other XR knee RT 4V*present. This appears to measure at least 11 mm in AP dimension. Degenerative changes are worse whenCameron Regional Medical CenterWonderloop Other XR knee RT 4V*compared to the prior exam. No definite radiopaque foreign body. There is a moderate joint effusion.[employer] Other XR knee RT 4V*No soft tissue swelling. There is mild patellofemoral joint space loss.[employer] Other XR knee RT 4V* XR/XR knee RT 4V* [employer] Other XR knee RT 4V*IMPRESSION:[employer] Other XR knee RT 4V*compared to the prior exam.[employer] Other XR knee RT 4V*No definite radiopaque foreign body. [employer] Other XR knee RT 4V*Impression dictated by: Dheeraj Montesinos M.D.08/18/2022 10:52 [facility] [employer] Other XR knee RT 4V*Dictation Location: [id number] Other XR knee RT 4V*Transcribed By: NEWTON 08/18/22 [facility] CenterFunCaptcha Other XR knee RT 4V*Dictated By: Dheeraj Montesinos II, MD 08/18/22 [facility] HospitalBVfon Telecommunication Other XR knee RT 4V*Signed By:[employer] Other XR knee RT 4V*08/18/22 [facility] CenterFunCaptcha Other Albumin [Mass/volume] in Serum or PlasmaOrdered By: Charles Bazzi on 01-02-0394Nfhurmu [Mass/Vol]3.6 g/dL3.2-5.5FMcCullough-Hyde Memorial HospitalBasophils Auto (Bld) [#/Vol]Ordered By: Charles Bazzi on 05-25-2022 Basophils (Bld) [#/Vol]0.1 10*3/uL0.0-0.2FMcCullough-Hyde Memorial Hospital Basophils/100 WBC Auto (Bld)Ordered By: Charles Bazzi on 79-42-6700Quhnacjjw/100 WBC (Bld)0.7 %.[facility] HospitalCholesterol [Mass/volume] in Serum or PlasmaOrdered By: Charles Bazzi on 14-00-3808Plkvshfaaat [Mass/Vol]181 mg/eY718-135EaljgyutpParkwood HospitalComment on above:Chol less than 200 mg/dl low riskChol 201-239 mg/dl borderline riskChol 240 mg/dl and greater high riskCholesterol in LDL Calc [Mass/Vol]Ordered By: Charles Bazzi on 05-25-2022 Cholesterol in LDL [Mass/Vol]97 mg/dL0-100[facility] Comment on above:LDL ATP III CLASSIFICATIONLDL less than 100 mg/dL OptimalLDL 100-129 mg/dL Near or above supgoqdEHT928-746 mg/dL Borderline highLDL 160-189 mg/dL HighLDL greater than 189 mg/dL Very highCholesterol in VLDL Calc [Mass/Vol]Ordered By: Charles Bazzi on 36-84-7068Wtlcyiavyab in VLDL [Mass/Vol]13 mg/dLParkwood HospitalCreatinine and Glomerular filtration rate.predicted panel (S/P/Bld)Ordered By: Charles Bazzi on 73-66-9132Ythznsdnbj [Mass/Vol]0.69 mg/dL0.44-1.03Park[facility] HospitalEosinophils Auto (Bld) [#/Vol]Ordered By: Charles Bazzi on 71-60-9043Qabogkkyuhh (Bld) [#/Vol]0.2 10*3/uL0.0-0.45[facility] HospitalEosinophils/100 WBC Auto (Bld) Ordered By: Charles Bazzi on 24-63-9215Wsbzsixpbgp/100 WBC (Bld)2.3 %.[facility] HospitalErythrocyte distribution width Auto (RBC) [Ratio]Ordered By: Charles Bazzi on 10-92-9316Ggoaezvhqnd distribution width (RBC) [Ratio]15.5 % 11.9-15.3FMcCullough-Hyde Memorial HospitalEstimated glomerular filtration rate (GFR) non- AmericanOrdered By: Charles Bazzi on 65-36-5298KXI/1.73 sq M.predicted among non-blacks MDRD (S/P/Bld) [Vol rate/Area]> 60 mL/MinParkwood HospitalGlobulin Calc (S) [Mass/Vol]Ordered By: Charles Bazzi on 77-39-1933Qgimegxm (S) [Mass/Vol]2.7 g/dLParkwood Hospital Hematocrit Auto (Bld) [Volume fraction]Ordered By: Charles Bazzi on 05-25-2022 Hematocrit (Bld) [Volume fraction]37.0 %34.0-46.4FMcCullough-Hyde Memorial HospitalHemoglobin [Mass/volume] in BloodOrdered By: Charles Bazzi on 05-25-2022 Hemoglobin (Bld) [Mass/Vol]12.0 g/dL11.8-15.4FMcCullough-Hyde Memorial Hospital Laboratory - Hematology and Cell countsOrdered By: Charles Bazzi on 05-25-2022 Nucleated RBC/100 WBC (Bld) [Ratio]0.0 %0-0.5FMcCullough-Hyde Memorial Hospital Leukocytes [#/volume] in Blood by Automated countOrdered By: Charles Bazzi on 21-93-5227EKY (Bld) [#/Vol]8.2 10*3/uL4.5-11.0[facility] Lymphocytes Auto (Bld) [#/Vol]Ordered By: Charles Bazzi on 21-78-1226Tzmmxpuuspm (Bld) [#/Vol]2.9 10*3/uL1.00-4.8[facility] HospitalLymphocytes/100 WBC Auto (Bld)Ordered By: Charles Bazzi on 96-35-3855Jrlblhtdumn/100 WBC (Bld)35.1 %.[facility] Auto (RBC) [Entitic mass]Ordered By: Charles Bazzi on 22-52-1739ZYI (RBC) [Entitic mass]29.1 pg24.7-34.3Fire[facility] Medical CenterMCHC Auto (RBC) [Mass/Vol]Ordered By: Charles Bazzi on 25-18-3127LGQK (RBC) [Mass/Vol]32.4 g/dL32.0-35.0Park[facility] HospitalMCV Auto (RBC) [Entitic vol]Ordered By: Charles Bazzi on 00-13-3107EIQ (RBC) [Entitic vol]89.9 uQ00-671XtixsslnaParkwood HospitalMonocytes Auto (Bld) [#/Vol]Ordered By: Charles Bazzi on 77-85-0878Hqmpfinbc (Bld) [#/Vol]0.6 10*3/uL 0.0-0.8Park[facility] HospitalMonocytes/100 WBC Auto (Bld)Ordered By: Charles Bazzi on 54-80-1222Xclipzvmx/100 WBC (Bld)7.7 %.[facility] HospitalNeutrophils Auto (Bld) [#/Vol]Ordered By: Charles Bazzi on 05-25-2022 Neutrophils (Bld) [#/Vol]4.4 10*3/uL1.8-7.7FMcCullough-Hyde Memorial Hospital Neutrophils/100 WBC Auto (Bld)Ordered By: Charles Bazzi on 05-25-2022 Neutrophils/100 WBC (Bld)54.2 %.[facility] HospitalNo Panel InformationOrdered By: Charles Bazzi on 76-07-3861Eaqbmwush GFR ()> 60 mL/MinParkwood HospitalComment on above:GFR estimated reference range: According to KDOQI guidelines, <60 ml/min/1.73m2 is sufficient todiagnose a patient with chronic kidney disease.Pharmacy Creatinine Clearance (ChemN/[facility] HospitalPlatelet mean volume Auto (Bld) [Entitic vol]Ordered By: Charles Bazzi on 61-26-8771Tuisargl mean volume (Bld) [Entitic vol]7.2 fL6.3-10.7FMcCullough-Hyde Memorial HospitalPlatelets Auto (Bld) [#/Vol]Ordered By: Charles Bazzi on 43-24-0001Bpqueqmay (Bld) [#/Vol]441 10*3/uL 150-450Park[facility] HospitalProtein [Mass/volume] in Serum or Plasma Ordered By: Charles Bazzi on 55-16-1867Jexibys [Mass/Vol]6.3 g/dL6.1-7.9Park[facility] HospitalRBC Auto (Bld) [#/Vol]Ordered By: Charles Bazzi on 78-41-1465TMQ (Bld) [#/Vol]4.12 10*6/uL3.60-5.00[facility] Health Systemerum or plasma alanine aminotransferase measurement without P-5'-P (enzymatic activiOrdered By: Charles Bazzi on 87-37-1143TQK No additional P-5'-P [Catalytic activity/Vol]19 U/W16-88GfzlbfdfnMemorial Health Systemerum or plasma albumin/globulin mass ratioOrdered By: Charles Bazzi on 05-25-2022 Albumin/Globulin [Mass ratio]1.3 {ratio}[facility] Health Systemerum or plasma alkaline phosphatase measurement (enzymatic activity/volume)Ordered By: Charles Bazzi on 76-57-8968WZD [Catalytic activity/Vol]68 U/W38-89RztarqbkbMemorial Health Systemerum or plasma anion gap determinationOrdered By: Charles Bazzi on 52-43-6488Ybfgl gap [Moles/Vol]7.6 mmol/L6.0-15.0[facility] Health Systemerum or plasma aspartate aminotransferase measurement (enzymatic activity/volume)Ordered By: Charles Bazzi on 53-07-5779NBK [Catalytic activity/Vol] 15 U/T16-82WypcwbbqrMemorial Health Systemerum or plasma calcium measurement (mass/volume)Ordered By: Charles Bazzi on 93-67-8731Ztbnqxw [Mass/Vol]9.0 mg/dL 8.2-10.2FOhioHealth Riverside Methodist Hospitalerum or plasma chloride measurement (moles/volume)Ordered By: Charles Bazzi on 00-86-6956Lcmxlfyi [Moles/Vol]106 mmol/L 95-114Memorial Health Systemerum or plasma glucose measurement (mass/volume)Ordered By: Charles Bazzi on 98-54-8360Enqzjze [Mass/Vol]91 mg/dL 70-100Park[facility] HospitalComment on above:ADA recommended reference rangeRandom Glucose Reference Range is dependent on time and content of last meal. Glucose of more than 200 mg/dL in a nonstressed, ambulatory subject supports the diagnosisof Diabetes Mellitus.Serum or plasma high density lipoprotein (HDL) cholesterol measurementOrdered By: Charles Bazzi on 05-25-2022 Cholesterol in HDL [Mass/Vol]70 mg/kO41-82EfnbswyubParkwood Hospital Comment on above:HDL CHOL ATP-III CLASSIFICATION Cardiovascular RiskHDL > or equal to 60 mg/dL LOWHDL < 40 mg/dL HIGHSerum or plasma potassium measurement (moles/volume)Ordered By: Charles Bazzi on 67-11-4494Ngmzmeiel [Moles/Vol]4.2 mmol/L3.5-5.1FOhioHealth Riverside Methodist Hospitalerum or plasma sodium measurement (moles/volume)Ordered By: Charles Bazzi on 28-99-0202Nngvbc [Moles/Vol]136 mmol/L 136-146[facility] Systemerum or plasma total bilirubin measurement (mass/volume)Ordered By: Charles Bazzi on 63-93-3773Fpjapuigu [Mass/Vol]0.4 mg/dL0.3-1.2FOhioHealth Riverside Methodist Hospitalerum or plasma total carbon dioxide measurement (moles/volume)Ordered By: Charles Bazzi on 05-25-2022 CO2 [Moles/Vol]26.6 mmol/L22.0-30.0[facility] Systemerum or plasma total cholesterol/high density lipoprotein (HDL) cholesterol mass rat Ordered By: Charles Bazzi on 91-08-6817Wakfklsxvrx.total/Cholesterol in HDL [Mass ratio]2.6 {ratio}<5.0[facility] Systemerum or plasma urea nitrogen measurement (mass/volume)Ordered By: Charles Bazzi on 76-57-0919Tbju nitrogen [Mass/Vol]20 mg/dL9-23[facility] HospitalTS DL <= 0.005 mIU/L QnOrdered By: Charles Bazzi on 87-00-4721DSB Qn2.62 m[IU]/L0.45-5.33[facility] HospitalTriglyceride [Mass/volume] in Serum or PlasmaOrdered By: Charles Bazzi on 27-49-7360Qnresxqbrtsw [Mass/Vol]68 mg/wA02-942MbyerzxqnParkwood HospitalComment on above:TRIG ATP III CLASSIFICATIONTRIG less than 150 mg/dL NormalTRIG 150-199 mg/dL Borderline highTRIG 200-500 mg/dL High TRIG greater than 500 mg/dL Very highStandard traceable to the Center for Disease Co nrtrol and Prevention (CDC) test method. Vital Signs Date TimeVital SignValuePerforming WcqmtjpcqBcvyohxt99-52-1342 10:30-0500Body mdzgiv224.1 cmBrett Kuns DO Work Phone: [facility]11-06-2025 10:30-0500 Body mass index (BMI) [Ratio]22.6 kg/r1Aavrp Kuns DO Work Phone: [facility]11-06-2025 10:30-0500 Body ahnvnd48.68 kgBrett Kuns DO Work Phone: [facility]11-06-2025 10:30-0500 Diastolic blood uqsgvofu36 mm[Hg]Chalres Kuns DO Work Phone: [facility]11-06-2025 10:30-0500 Heart rate73 /minBrett Kuns DO Work Phone: [facility]11-06-2025 10:30-0500 Respiratory rate16 /minBrett Kuns DO Work Phone: [facility]11-06-2025 10:30-0500 SaO2% (BldA) [Mass fraction]95 %Charles Kuns DO Work Phone: [facility]11-06-2025 10:30-0500 Systolic blood lygnpfsj500 mm[Hg]Charles Kuns DO Work Phone: [facility]09-04-2025 09:30-0400 Diastolic blood mm[Hg]Laisha Singer MD Work Phone: [facility]09-04-2025 09:30-0400Heart rate74 /min Laisha Singer MD Work Phone: [facility]09-04-2025 09:30-0400Respiratory rate 16 /minLaisha Singer MD Work Phone: [facility]09-04-2025 09:30-4149EaG6% (BldA) [Mass fraction]100 %Laisha Singer MD Work Phone: [facility]09-04-2025 09:30-0400Systolic blood hqseezjv620 mm[Hg]Laisha Singer MD Work Phone: [facility]09-04-2025 09:06-0400Body temperature 97 [degF]Laisha Singer MD Work Phone: [facility]08-14-2025 14:04-0400Body gorxfc684.6 cmTapan Corona MD Work Phone: [facility]08-14-2025 14:04-0400Body mass index (BMI) [Ratio]25.09 kg/e5BbajqTapan Corona MD Work Phone: [facility]08-14-2025 14:04-0400Body temperature 99.39 [degF]Tapan Corona MD Work Phone: [facility]08-14-2025 14:04-0400Body .3 kgTapan Corona MD Work Phone: [facility]08-14-2025 14:04-0400Diastolic blood mqunfizs75 mm[Hg]Tapan Corona MD Work Phone: [facility]08-14-2025 14:04-0400Heart rate67 /min Tapan Corona MD Work Phone: [place] [address]-14-2025 14:04-0400Respiratory rate 18 /minTapan Cornoa MD Work Phone: [facility]08-14-2025 14:04-6073IwP0% (BldA) [Mass fraction]99 %Tapan Corona MD Work Phone: [facility]08-14-2025 14:04-0400Systolic blood qgynaszw024 mm[Hg]Tapan Corona MD Work Phone: [facility]08-14-2025 13:08-0400Body etekds674.6 cmLaisha Singer MD Work Phone: [phone]08-14-2025 13:08-0400Body mass index (BMI) [Ratio]25.13 kg/f9RgzxiqjLaisha Singer MD Work Phone: [phone]08-14-2025 13:08-0400Body qpepul42.4 kgLaisha Singer MD Work Phone: [phone]08-14-2025 13:08-0400Diastolic blood ytngkwom49 mm[Hg]Laisha Singer MD Work Phone: [phone]08-14-2025 13:08-0400Heart rate67 /min Laisha Singer MD Work Phone: [phone]08-14-2025 13:08-9537FbB1% (BldA) [Mass fraction]98 %Laisha Singer MD Work Phone: [phone]08-14-2025 13:08-0400Systolic blood vmteczno481 mm[Hg]Laisha Singer MD Work Phone: [phone]04-02-2025 09:07-0400Body mass index (BMI) [Ratio]27.8 kg/m2JOSE MARIA Hudson MD Work Phone: [facility]04-02-2025 09:07-0400Body temperature 97.59 [degF]JOSE MARIA Hudson MD Work Phone: [facility]04-02-2025 09:07-0400Body ufevqp63.5 kgJOSE MARIA Hudson MD Work Phone: [facility]04-02-2025 09:07-0400Diastolic blood tufuwish46 mm[Hg]JOSE MARIA Hudson MD Work Phone: [facility]04-02-2025 09:07-0400Heart rate79 /min JOSE MARIA Hudson MD Work Phone: [facility]04-02-2025 09:07-0400Respiratory rate 16 /CorinnaJOSE MARIA Hudson MD Work Phone: [facility]04-02-2025 09:07-2463NtL2% (BldA) [Mass fraction]98 %JOSE MARIA Hudson MD Work Phone: [facility]04-02-2025 09:07-0400Systolic blood lzsxifea089 mm[Hg]JOSE MARIA Hudson MD Work Phone: [facility]03-12-2025 11:50-0400Diastolic blood pfsjyuqy15 mm[Hg]Charles Alejos DO Work Phone: [facility]03-12-2025 11:50-0400 Heart rate59 /minBrett Kuns DO Work Phone: [facility]03-12-2025 11:50-0400 Respiratory rate18 /minBrett Kuns DO Work Phone: [facility]03-12-2025 11:50-0400 SaO2% (BldA) [Mass fraction]100 %Charles Kuns DO Work Phone: [facility]03-12-2025 11:50-0400 Systolic blood iemiuqrb905 mm[Hg]Charles Kuns DO Work Phone: [facility]03-12-2025 10:24-0400 Body oukpbe028.1 cmBrett Kuns DO Work Phone: [facility]03-12-2025 10:24-0400 Body irdgkj42.39 kgBrett Kuns DO Work Phone: [facility]03-03-2025 10:24-0500 Body brtain324.1 cmBrett Kuns DO Work Phone: [facility]03-03-2025 10:24-0500 Body mass index (BMI) [Ratio]26.2 kg/o9Kndgg Kuns DO Work Phone: [facility]03-03-2025 10:24-0500 Body .66 kgBrett Kuns DO Work Phone: [facility]03-03-2025 10:24-0500 Diastolic blood reujriaw23 mm[Hg]Charles Kuns DO Work Phone: [facility]03-03-2025 10:24-0500 Heart rate68 /minBrett Kuns DO Work Phone: [facility]03-03-2025 10:24-0500 Respiratory rate18 /minBrett Kuns DO Work Phone: [facility]03-03-2025 10:24-0500 SaO2% (BldA) [Mass fraction]98 %Charles Kuns DO Work Phone: [facility]03-03-2025 10:24-0500 Systolic blood cjqzrygw356 mm[Hg]Charles Kuns DO Work Phone: [facility]02-25-2025 13:52-0500 Body hxmobu792.6 cmTapan Corona MD Work Phone: [facility]02-25-2025 13:52-0500Body mass index (BMI) [Ratio]27.42 kg/x9LjlxmTapan Corona MD Work Phone: [facility]02-25-2025 13:52-0500Body temperature 97.2 [degF]Tapan Corona MD Work Phone: [facility]02-25-2025 13:52-0500Body epxbus38.5 kgTapan Corona MD Work Phone: [facility]02-25-2025 13:52-0500Diastolic blood eqyftdoi58 mm[Hg]Tapan Corona MD Work Phone: [facility]02-25-2025 13:52-0500Heart rate64 /min Tapan Corona MD Work Phone: [facility]02-25-2025 13:52-0500Respiratory rate 18 /minTapan Corona MD Work Phone: [facility]02-25-2025 13:52-7979IgH3% (BldA) [Mass fraction]98 %Tapan Corona MD Work Phone: [facility]02-25-2025 13:52-0500Systolic blood kqybxjvt602 mm[Hg]Tapan Corona MD Work Phone: [facility]02-17-2025 10:05-0500Diastolic blood kszeglwj78 mm[Hg]Charles Kuns DO Work Phone: [facility]02-17-2025 10:05-0500 Heart rate55 /minBrett Kuns DO Work Phone: [facility]02-17-2025 10:05-0500 Respiratory rate16 /minBrett Kuns DO Work Phone: [facility]02-17-2025 10:05-0500 SaO2% (BldA) [Mass fraction]97 %Charles Kuns DO Work Phone: [facility]02-17-2025 10:05-0500 Systolic blood vwibbvii838 mm[Hg]Charles Kuns DO Work Phone: [facility]02-17-2025 09:35-0500 Body dhpexgcslaj72.1 [degF]Charles Kuns DO Work Phone: [facility]02-17-2025 07:08-0500 Body rrekkx229.1 cmBrett Kuns DO Work Phone: [phone])[address]02-17-2025 07:08-0500 Body sgomsk07 kgBrett Kuns DO Work Phone: 1(949)[address] [place], [place] 9813612-03-2024 13:13-0500 Body .56 cmBrett Kuns DO Work Phone: 1(722)[address] [place], [place] 9813612-03-2024 13:13-0500 Body mass index (BMI) [Ratio]26.6 kg/d5Sordw Kuns DO Work Phone: 1(741)[address] [place], [place] 9813612-03-2024 13:13-0500 Body yebvqv55.3 kgBrett Kuns DO Work Phone: 1(465)[address] [place], [place] 9813612-03-2024 13:13-0500 Diastolic blood oggoeknq49 mm[Hg]Charles Kuns DO Work Phone: 1(732)[address] [place], [place] 9813612-03-2024 13:13-0500 Heart rate67 /minBrett Kuns DO Work Phone: 1(345)[address] [place], [place] 9813612-03-2024 13:13-0500 Respiratory rate16 /minBrett Kuns DO Work Phone: 1(193)[address] [place], [place] 9813612-03-2024 13:13-0500 SaO2% (BldA) [Mass fraction]98 %Charles Kuns DO Work Phone: 1(013)[address] [place], [place] 9813612-03-2024 13:13-0500 Systolic blood goalrfgm425 mm[Hg]Charles Kuns DO Work Phone: 1(679)[address] [place], [place] 9813611-22-2024 14:50-0500 Diastolic blood fjeajqwz68 mm[Hg]Charles Kuns DO Work Phone: 1(584)[address]11-22-2024 14:50-0500 Heart rate65 /minBrett Kuns DO Work Phone: 1(587)[address] [place], [place] 9813611-22-2024 14:50-0500 Respiratory rate16 /minBrett Kuns DO Work Phone: [phone]11-22-2024 14:50-0500 SaO2% (BldA) [Mass fraction]99 %Charles Kuns DO Work Phone: 1(627)1-[address] [place], [place] 3620511-22-2024 14:50-0500 Systolic blood tkiaiadw062 mm[Hg]Charles Kuns DO Work Phone: 1(776)0-[address] [place], [place] 3620511-22-2024 14:05-0500 Body dbxroibirxp77.3 [degF]Charles Kuns DO Work Phone: 1(292)[address]11-22-2024 14:05-0500 Inhaled oxygen flow rate8 L/minBrett Kuns DO Work Phone: 1(590)[address]11-22-2024 11:31-0500 Body agbthf744.56 cmBrett Kuns DO Work Phone: 1(884)[address]11-22-2024 11:31-0500 Body wzibrw12.13 kgBrett Kuns DO Work Phone: 1(221)[address]11-14-2024 10:55-0500 Diastolic blood walyqels46 mm[Hg]Charles Kuns DO Work Phone: 1(127)8-[address] [place], [place] 3620511-14-2024 10:55-0500 Heart rate64 /minBrett Kuns DO Work Phone: 1(291)6-[address] [place], [place] 3620511-14-2024 10:55-0500 Respiratory rate16 /minBrett Kuns DO Work Phone: 4(651)9-[address] [place], [place] 3620511-14-2024 10:55-0500 SaO2% (BldA) [Mass fraction]98 %Charles Kuns DO Work Phone: 4(047)8-[address] [place], [place] 3620511-14-2024 10:55-0500 Systolic blood qakvrvgk921 mm[Hg]Charles Kuns DO Work Phone: [facility]11-14-2024 08:25-0500 Body .1 cmBrett Kuns DO Work Phone: 1(212)[address]11-14-2024 08:25-0500 Body qvaqsolzjbc14.1 [degF]Charles Kuns DO Work Phone: 1(882)[address]11-14-2024 08:25-0500 Body .6 kgBrett Kuns DO Work Phone: 1(942)[address]11-13-2024 14:48-0500 Diastolic blood asnfbdbt92 mm[Hg]Charles Kuns DO Work Phone: 1(509)[address]11-13-2024 14:48-0500 Heart rate80 /minBrett Kuns DO Work Phone: 1(131)[address] [place], [place] 9813611-13-2024 14:48-0500 Respiratory rate18 /minBrett Kuns DO Work Phone: 1(604)[address]11-13-2024 14:48-0500 SaO2% (BldA) [Mass fraction]98 %Chrales Kuns DO Work Phone: 1(930)9-[address] [place], [place] 3620511-13-2024 14:48-0500 Systolic blood lekgzhuu101 mm[Hg]Charles Kuns DO Work Phone: 1(275)2-[address] [place], [place] 3620511-13-2024 11:56-0500 Body .1 cmBrett Kuns DO Work Phone: 1(523)5-[address] [place], [place] 3620511-13-2024 11:56-0500 Body lzhkcfquysb02.9 [degF]Charles Kuns DO Work Phone: 1(034)3-[address] [place], [place] 3620511-13-2024 11:56-0500 Body iltdvt92.95 kgBrett Kuns DO Work Phone: 1(196)[address]10-30-2024 13:54-0400 Body .6 cmKasra Karamlou MD Work Phone: [facility]10-30-2024 13:54-0400Body mass index (BMI) [Ratio]26.27 kg/d8IrptbTapan Corona MD Work Phone: [facility]10-30-2024 13:54-0400Body temperature 99 [degF]Tapan Corona MD Work Phone: [facility]10-30-2024 13:54-0400Body fpqlyl88.45 kgTapan Corona MD Work Phone: [facility]10-30-2024 13:54-0400Diastolic blood gvxhdkez11 mm[Hg]Tapan Corona MD Work Phone: [facility]10-30-2024 13:54-0400Heart rate70 /min Tapan Corona MD Work Phone: [facility]10-30-2024 13:54-0400Respiratory rate 18 /minTapan Corona MD Work Phone: [facility]10-30-2024 13:54-4129AlB7% (BldA) [Mass fraction]100 %Tapan Corona MD Work Phone: [facility]10-30-2024 13:54-0400Systolic blood fjazouts352 mm[Hg]Tapan Corona MD Work Phone: [facility]10-02-2024 09:56-0400Body mass index (BMI) [Ratio]26.02 kg/m2JOSE MARIA Hudson MD Work Phone: [facility]10-02-2024 09:56-0400Body temperature 98.01 [degF]JOSE MARIA Hudson MD Work Phone: [facility]10-02-2024 09:56-0400Body uwaebo19.8 kgJOSE MARIA Hudson MD Work Phone: [address] [place], [place] 9839210-02-2024 09:56-0400Diastolic blood uqvgqhzm54 mm[Hg]JOSE MARIA Hudson MD Work Phone: [facility]10-02-2024 09:56-0400Heart rate62 /min JOSE MARIA Hudson MD Work Phone: [facility]10-02-2024 09:56-0400Respiratory rate 16 /CorinnaJOSE MARIA Hudson MD Work Phone: [facility]10-02-2024 09:56-6039TqP8% (BldA) [Mass fraction]99 %JOSE MARIA Hudson MD Work Phone: [facility]10-02-2024 09:56-0400Systolic blood unnecvue568 mm[Hg]JOSE MARIA Hudson MD Work Phone: [facility]07-30-2024 11:15-0400Body jpojnc723.6 cmTapan Corona MD Work Phone: [facility]07-30-2024 11:15-0400Body mass index (BMI) [Ratio]25.61 kg/h2PgszaTapan Corona MD Work Phone: [facility]07-30-2024 11:15-0400Body temperature 97.7 [degF]Tapan Corona MD Work Phone: [facility]07-30-2024 11:15-0400Body nooiho62.7 kgTapan Corona MD Work Phone: [facility]07-30-2024 11:15-0400Diastolic blood zkltoqjf53 mm[Hg]Tapan Corona MD Work Phone: [facility]07-30-2024 11:15-0400Heart rate76 /min Tapan Corona MD Work Phone: [facility]07-30-2024 11:15-0400Respiratory rate 16 /minTapan Corona MD Work Phone: [phone]07-30-2024 11:15-8543QpQ6% (BldA) [Mass fraction]98 %Tapan Corona MD Work Phone: [facility]07-30-2024 11:15-0400Systolic blood aahjsuus904 mm[Hg]Tapan Corona MD Work Phone: [facility]07-02-2024 14:09-0400Body mass index (BMI) [Ratio]24.2 kg/k5OfeofjaLaisha Singer MD Work Phone: [facility]07-02-2024 14:09-0400Body temperature 97.81 [degF]Laisha Singer MD Work Phone: [facility]07-02-2024 14:09-0400Body ymsbti18.96 kgLaisha Singer MD Work Phone: [facility]07-02-2024 14:09-0400Diastolic blood wvduiogi30 mm[Hg]Laisha Singer MD Work Phone: [facility]07-02-2024 14:09-0400Heart rate64 /min Laisha Singer MD Work Phone: [facility]07-02-2024 14:09-6515EuO7% (BldA) [Mass fraction]99 %Laisha Singer MD Work Phone: [facility]07-02-2024 14:09-0400Systolic blood feabwcqd738 mm[Hg]Laisha Singer MD Work Phone: [facility]05-17-2024 15:29-0400Body .6 cmBrandie Salmeron APRN.ACCOUNT SERVICES ASSOCIATE Work Phone: [facility]05-17-2024 15:29-0400Body mass index (BMI) [Ratio]24.2 kg/s1PtwsmevBrandie Salmeron APRN.CNP Work Phone: [facility]05-17-2024 15:29-0400Body temperature 97.3 [degF]Brandie Salmeron CHIEF LEARNING OFFICER.ACCOUNT SERVICES ASSOCIATE Work Phone: [facility]05-17-2024 15:29-0400Body lvwjun94.96 kgKatjamal Houstontammy CHIEF LEARNING OFFICER.ACCOUNT SERVICES ASSOCIATE Work Phone: [facility]05-17-2024 15:29-0400Diastolic blood xgdjyqln87 mm[Hg]Brandie Salmeron CHIEF LEARNING OFFICER.ACCOUNT SERVICES ASSOCIATE Work Phone: [facility]05-17-2024 15:29-0400Heart rate57 /min Brandie Salmeron CHIEF LEARNING OFFICER.ACCOUNT SERVICES ASSOCIATE Work Phone: [facility]05-17-2024 15:29-0400Systolic blood vtsvhebt038 mm[Hg]Brandiejamal Salmeron CHIEF LEARNING OFFICER.ACCOUNT SERVICES ASSOCIATE Work Phone: [facility]04-20-2024 13:26-0400Body temperature 97.5 [degF]DO Charles Kuns Work Phone: [facility]04-20-2024 13:26-0400 Diastolic blood gwxjomlx24 mm[Hg]DO Charles Kuns Work Phone: [facility]04-20-2024 13:26-0400 Heart rate77 /minDO Charles Kuns Work Phone: [facility]04-20-2024 13:26-0400 Respiratory rate16 /minDO Charles Kuns Work Phone: [facility]04-20-2024 13:26-0400 SaO2% (BldA) [Mass fraction]100 %DO Charles Kuns Work Phone: [facility]04-20-2024 13:26-0400 Systolic blood ebqutwqy009 mm[Hg]DO Charles Kuns Work Phone: [facility]04-20-2024 05:55-0400 Body pywubz83.6 kgDO Charles Kuns Work Phone: [facility]04-18-2024 15:42-0400 Body qaxmoy794.56 cmDO Charles Kuns Work Phone: [facility]04-18-2024 03:21-0400 Diastolic blood zwlljfuc22 mm[Hg]DO Charles Kuns Work Phone: [facility]04-18-2024 03:21-0400 Heart rate75 /minDO Charles Kuns Work Phone: [facility]04-18-2024 03:21-0400 Respiratory rate15 /minDO Charles Kuns Work Phone: [facility]04-18-2024 03:21-0400 SaO2% (BldA) [Mass fraction]96 %DO Charles Kuns Work Phone: [facility]04-18-2024 03:21-0400 Systolic blood jezdjauu030 mm[Hg]DO Charles Kuns Work Phone: [facility]04-18-2024 01:53-0400 Body kxxojzksugq08 [degF]DO Charlesrocio Bazzi Work Phone: [facility]04-17-2024 20:18-0400 Body otmmat021.56 cmDO Chalres Kunpacheco Work Phone: [facility]04-17-2024 20:18-0400 Body .9 kgDO Charlesrocio Bazzi Work Phone: [facility]04-02-2024 10:42-0400 Body .6 cmTapan Corona MD Work Phone: [facility]04-02-2024 10:42-0400Body temperature 98.01 [degF]Tapan Corona MD Work Phone: [facility]04-02-2024 10:42-0400Body ntneax04.7 kgTapan Corona MD Work Phone: [facility]04-02-2024 10:42-0400Diastolic blood egbcyhst14 mm[Hg]Tapan Corona MD Work Phone: [facility]04-02-2024 10:42-0400Heart rate92 /min Tapan Corona MD Work Phone: [facility]04-02-2024 10:42-0400Respiratory rate 16 /minTapan Corona MD Work Phone: [facility]04-02-2024 10:42-6542StN3% (BldA) [Mass fraction]100 %Tapan Corona MD Work Phone: [facility]04-02-2024 10:42-0400Systolic blood zysyrrqa620 mm[Hg]Tapan Corona MD Work Phone: [facility]03-24-2024 12:00-0400Body temperature 98.1 [degF]DO Charles Kuns Work Phone: [facility]03-24-2024 12:00-0400 Diastolic blood gvmnmaqx30 mm[Hg]DO Charles Kuns Work Phone: [facility]03-24-2024 12:00-0400 Heart rate63 /minDO Charles Kuns Work Phone: [facility]03-24-2024 12:00-0400 Respiratory rate16 /minDO Charles Kuns Work Phone: [facility]03-24-2024 12:00-0400 SaO2% (BldA) [Mass fraction]98 %DO Charles Kuns Work Phone: [facility]03-24-2024 12:00-0400 Systolic blood ramdvvrc025 mm[Hg]DO Charles Kuns Work Phone: [facility]03-24-2024 06:00-0400 Body kgDO Charles Kuns Work Phone: [facility]03-23-2024 04:29-0400 Body fzqobo183.56 cmDO Charles Kuns Work Phone: [facility]03-23-2024 04:08-0400 Body vixwrhgkglm69.1 [degF]DO Charles Kuns Work Phone: [facility]03-23-2024 04:08-0400 Diastolic blood zvwvzzan61 mm[Hg]DO Charles Kuns Work Phone: [facility]03-23-2024 04:08-0400 Heart rate68 /minDO Charles Kuns Work Phone: [facility]03-23-2024 04:08-0400 Respiratory rate16 /minDO Charles Kuns Work Phone: [facility]03-23-2024 04:08-0400 SaO2% (BldA) [Mass fraction]96 %DO Charles Kuns Work Phone: [facility]03-23-2024 04:08-0400 Systolic blood jdafmrgu628 mm[Hg]DO Charles Kuns Work Phone: [facility]03-23-2024 00:58-0400 Body oxwyam272.56 cmDO Charles Kuns Work Phone: [facility]03-23-2024 00:58-0400 Body otrlrm92.59 kgDO Charles Kuns Work Phone: [facility]03-15-2024 14:30-0400 Body okunyb928.6 cmBrandie Salmeron APRN.ACCOUNT SERVICES ASSOCIATE Work Phone: [facility]03-15-2024 14:30-0400Body temperature 97.3 [degF]Brandie Salmeron CHIEF LEARNING OFFICER.ACCOUNT SERVICES ASSOCIATE Work Phone: [facility]03-15-2024 14:30-0400Body rkhzyq01.6 kgBrandie Salmeron CHIEF LEARNING OFFICER.ACCOUNT SERVICES ASSOCIATE Work Phone: [phone]03-15-2024 14:30-0400Diastolic blood dqcrlwby68 mm[Hg]Brandie Salmeron CHIEF LEARNING OFFICER.ACCOUNT SERVICES ASSOCIATE Work Phone: [phone]03-15-2024 14:30-0400Heart rate62 /min Brandie Salmeron CHIEF LEARNING OFFICER.ACCOUNT SERVICES ASSOCIATE Work Phone: [phone]03-15-2024 14:30-1391FgG6% (BldA) [Mass fraction]100 %Brandie Salmeron CHIEF LEARNING OFFICER.ACCOUNT SERVICES ASSOCIATE Work Phone: [phone]03-15-2024 14:30-0400Systolic blood mm[Hg]Brandie Salmeron CHIEF LEARNING OFFICER.ACCOUNT SERVICES ASSOCIATE Work Phone: [phone]02-02-2024 12:03-0500Body xhutdn035.1 cmPacc 2 Work Phone: [phone]02-02-2024 12:03-0500Body temperature 97 [degF]Pacc 2 Work Phone: [phone]02-02-2024 12:03-0500Body wmqbjo67.5 kgPacc 2 Work Phone: [phone]02-02-2024 12:03-0500Diastolic blood jtxjsmci44 mm[Hg]Pacc 2 Work Phone: [phone]02-02-2024 12:03-0500Heart rate71 /min Pacc 2 Work Phone: [phone]02-02-2024 12:03-0500Respiratory rate 18 /minPacc 2 Work Phone: [phone]02-02-2024 12:03-5738WaF2% (BldA) [Mass fraction]99 %Pacc 2 Work Phone: [phone]02-02-2024 12:03-0500Systolic blood nccetyqr407 mm[Hg]Pacc 2 Work Phone: [phone] [place], [place] 1573601-16-2024 12:42-0500Body .1 cmMarcos Rios MD Work Phone: [phone]01-16-2024 12:42-0500 Body mass index (BMI) [Ratio]24.3 kg/h0SbnbsntMarcos Rios MD Work Phone: [phone]01-16-2024 12:42-0500 Body ldmind10.22 kgMarcos Rios MD Work Phone: [phone]01-16-2024 12:42-0500 Diastolic blood fqypjhwl22 mm[Hg]Marcos Rios MD Work Phone: [phone]01-16-2024 12:42-0500 Heart rate66 /minMarcos Rios MD Work Phone: [phone])[address]01-16-2024 12:42-0500 Systolic blood rrqcawzc473 mm[Hg]Marcos Rios MD Work Phone: [phone])[phone] [place], [place] 9525712-18-2023 15:25-0500 Diastolic blood qirbxvqf16 mm[Hg]DO Charles Kuns Work Phone: [facility]12-18-2023 15:25-0500 Heart rate58 /minDO Charles Kuns Work Phone: [facility]12-18-2023 15:25-0500 Respiratory rate16 /minDO Charles Kuns Work Phone: [facility]12-18-2023 15:25-0500 SaO2% (BldA) [Mass fraction]97 %DO Charles Kuns Work Phone: [facility]12-18-2023 15:25-0500 Systolic blood xjtefdkf623 mm[Hg]DO Charles Kuns Work Phone: [facility]12-18-2023 13:18-0500 Body rumbjv785.56 cmDO Charles Bazzi Work Phone: [facility]12-18-2023 13:18-0500 Body mass index (BMI) [Ratio]23.6 kg/m2DO Charles Bazzi Work Phone: [facility]12-18-2023 13:18-0500 Body .59 kgDO Charlesrocio Bazzi Work Phone: [facility]12-18-2023 10:43-0500 Body nskpbqyhxze46 [degF]DO Charlesrocio Bazzi Work Phone: [facility]12-06-2023 14:51-0500 Body yrgztw504.6 cmTapan Corona MD Work Phone: [facility]12-06-2023 14:51-0500Body temperature 98.01 [degF]Tapan Corona MD Work Phone: [facility]12-06-2023 14:51-0500Body yilsos36.41 kgTapan Corona MD Work Phone: [facility]12-06-2023 14:51-0500Diastolic blood yepuxkdn65 mm[Hg]Tapan Corona MD Work Phone: [facility]12-06-2023 14:51-0500Heart rate77 /min Tapan Corona MD Work Phone: [facility]12-06-2023 14:51-0500Respiratory rate 16 /minTapan Corona MD Work Phone: [facility]12-06-2023 14:51-3938DrX9% (BldA) [Mass fraction]94 %Tapan Corona MD Work Phone: [facility]12-06-2023 14:51-0500Systolic blood jesuwzos223 mm[Hg]Tapan Corona MD Work Phone: [place] [address]-30-2023 13:30-0500Diastolic blood cawihxry38 mm[Hg]Laisha Singer MD Work Phone: [place] [address]-30-2023 13:30-0500Heart rate73 /min Laisha Singer MD Work Phone: [place] [address]-30-2023 13:30-0500Respiratory rate 17 /minLaisha Singer MD Work Phone: [place] [address]-30-2023 13:30-9801VeM1% (BldA) [Mass fraction]100 %Laisha Singer MD Work Phone: [place] [address]-30-2023 13:30-0500Systolic blood egsuekal535 mm[Hg]Laisha Singer MD Work Phone: [place] [address]-30-2023 13:11-0500Body temperature 97.2 [degF]Laisha Singer MD Work Phone: [place] [address]-30-2023 12:40-0500Body dimuei17.6 kgLaisha Singer MD Work Phone: [place] [address]-20-2023 10:20-0500Body temperature 96.69 [degF]JOSE MARIA Hudson MD Work Phone: [place] [address]-20-2023 10:20-0500Body .6 kgJOSE MARIA Hudson MD Work Phone: [place] [address]-20-2023 10:20-0500Diastolic blood dwceytuv48 mm[Hg]JOSE MARIA Hudson MD Work Phone: [place] [address]-20-2023 10:20-0500Heart rate64 /min JOSE MARIA Hudson MD Work Phone: [place] [address]-20-2023 10:20-0500Respiratory rate 18 /CorinnaJOSE MARIA Hudson MD Work Phone: [place] [address]-20-2023 10:20-6982JcV8% (BldA) [Mass fraction]98 %JOSE MARIA Hudson MD Work Phone: [facility]11-20-2023 10:20-0500Systolic blood dcxcuzuk434 mm[Hg]JOSE MARIA Hudson MD Work Phone: [facility]10-30-2023 10:59-0400Body temperature 96.91 [degF]JOSE MARIA uHdson MD Work Phone: [facility]10-30-2023 10:59-0400Body ohhxqa39.69 kgJOSE MARIA Hudson MD Work Phone: [facility]10-30-2023 10:59-0400Diastolic blood mm[Hg]JOSE MARIA Hudson MD Work Phone: [facility]10-30-2023 10:59-0400Heart rate74 /min JOSE MARIA Hudson MD Work Phone: [facility]10-30-2023 10:59-0400Respiratory rate 16 /CorinnaJOSE MARIA Hudson MD Work Phone: [facility]10-30-2023 10:59-4515SnB9% (BldA) [Mass fraction]95 %JOSE MARIA Hudson MD Work Phone: [facility]10-30-2023 10:59-0400Systolic blood wyoxufsl463 mm[Hg]JOSE MARIA Hudson MD Work Phone: [facility]10-23-2023 11:05-0400Body temperature 96.69 [degF]JOSE MARIA Hudson MD Work Phone: [facility]10-23-2023 11:05-0400Body .05 kgJOSE MARIA Hudson MD Work Phone: [facility]10-23-2023 11:05-0400Diastolic blood jhnobvdx98 mm[Hg]JOSE MARIA Hudson MD Work Phone: [facility]10-23-2023 11:05-0400Heart rate61 /min JOSE MARIA Hudson MD Work Phone: [facility]10-23-2023 11:05-0400Respiratory rate 18 /CorinnaJOSE MARIA Hudson MD Work Phone: [facility]10-23-2023 11:05-6641CuY0% (BldA) [Mass fraction]95 %NA Lauren VELASQUEZ Work Phone: [facility]10-23-2023 11:05-0400Systolic blood ubchzryx459 mm[Hg]NA Lauren VELASQUEZ Work Phone: [facility]10-23-2023 08:45-0400Body pwtamz747.1 cmCharles Bazzi Other [employer] Other 10-23-2023 08:45-0400Body mass index (BMI) [Ratio] 22.63 kg/p0HmqkaCharles Bazzi Other [employer] Other 10-23-2023 08:45-0400Body mifjiq21.69 kgCharles Bazzi Other [employer] Other 10-23-2023 08:45-0400Diastolic blood mm[Hg] Charles Bazzi Other [employer] Other 10-23-2023 08:45-0400Respiratory rate16 /minCharles Bazzi Other [employer] Other 10-23-2023 08:45-6614XdJ5% (BldA) [Mass fraction]99 % Charles Bazzi Other [employer] Other 10-23-2023 08:45-0400Systolic blood fustxumg364 mm[Hg] Charles Bazzi Other [employer] Other [id number] 14:08-0400Body sduupu316.6 cmTapan Corona MD Work Phone: [facility]10-20-2023 14:08-0400Body temperature 97.7 [degF]Tapan Corona MD Work Phone: [facility]10-20-2023 14:08-0400Body bqezag55.32 kgTapan Corona MD Work Phone: [facility]10-20-2023 14:08-0400Diastolic blood xeobjzlf47 mm[Hg]Tapan Corona MD Work Phone: [facility]10-20-2023 14:08-0400Heart rate65 /min Tapan Corona MD Work Phone: [facility]10-20-2023 14:08-0400Respiratory rate 18 /minTapan Corona MD Work Phone: [facility]10-20-2023 14:08-4854WbD0% (BldA) [Mass fraction]99 %Tapan Corona MD Work Phone: [facility]10-20-2023 14:08-0400Systolic blood kbtefnvb293 mm[Hg]Tapan Corona MD Work Phone: [facility]10-16-2023 11:33-0400Body temperature 96.69 [degF]JOSE MARIA Hudson MD Work Phone: [facility]10-16-2023 11:33-0400Body zppfto37.08 kgJOSE MARIA Hudson MD Work Phone: [facility]10-16-2023 11:33-0400Diastolic blood nprsezkz11 mm[Hg]JOSE MARIA Hudson MD Work Phone: [facility]10-16-2023 11:33-0400Heart rate72 /min JOSE MARIA Hudson MD Work Phone: [facility]10-16-2023 11:33-0400Respiratory rate 18 /CorinnaJOSE MARIA Hudson MD Work Phone: [facility]10-16-2023 11:33-5352WbG4% (BldA) [Mass fraction]99 %JOSE MARIA Hudson MD Work Phone: [facility]10-16-2023 11:33-0400Systolic blood vyxucvoa189 mm[Hg]JOSE MARIA Hudson MD Work Phone: [facility]10-06-2023 10:05-0400Body edeklt877.7 cmTapan Corona MD Work Phone: [facility]10-06-2023 10:05-0400Body temperature 97.5 [degF]Tapan Corona MD Work Phone: [facility]10-06-2023 10:05-0400Body .69 kgTapan Corona MD Work Phone: [facility]10-06-2023 10:05-0400Diastolic blood aovytmxx42 mm[Hg]Tapan Corona MD Work Phone: [facility]10-06-2023 10:05-0400Heart rate71 /min Tapan Corona MD Work Phone: [facility]10-06-2023 10:05-0400Respiratory rate 16 /minTapan Corona MD Work Phone: [facility]10-06-2023 10:05-7257AvZ7% (BldA) [Mass fraction]99 %Tapan Corona MD Work Phone: [facility]10-06-2023 10:05-0400Systolic blood mm[Hg]Tapan Corona MD Work Phone: [facility]10-02-2023 11:10-0400Body temperature 97.81 [degF]JOSE MARIA Hudson MD Work Phone: [facility]10-02-2023 11:10-0400Body roujyn53.05 kgJOSE MARIA Hudson MD Work Phone: [facility]10-02-2023 11:10-0400Diastolic blood bylmkuda77 mm[Hg]JOSE MARIA Hudson MD Work Phone: [facility]10-02-2023 11:10-0400Heart rate71 /min JOSE MARIA Hudson MD Work Phone: [facility]10-02-2023 11:10-0400Respiratory rate 18 /CorinnaJOSE MARIA Hudson MD Work Phone: [facility]10-02-2023 11:10-4038UrB1% (BldA) [Mass fraction]99 %JOSE MARIA Hudson MD Work Phone: [facility]10-02-2023 11:10-0400Systolic blood mmfoolfy825 mm[Hg]JOSE MARIA Hudson MD Work Phone: [facility]09-28-2023 12:44-0400Body temperature 97.9 [degF]DO Charles Kuns Work Phone: [facility]09-28-2023 12:44-0400 Diastolic blood eldkmboe61 mm[Hg]DO Charles Kuns Work Phone: [facility]09-28-2023 12:44-0400 Heart rate77 /minDO Charles Kuns Work Phone: [facility]09-28-2023 12:44-0400 Respiratory rate14 /minDO Charles Kuns Work Phone: [facility]09-28-2023 12:44-0400 SaO2% (BldA) [Mass fraction]99 %DO Charles Kuns Work Phone: [facility]09-28-2023 12:44-0400 Systolic blood mm[Hg]DO Charles Kuns Work Phone: [facility]09-28-2023 06:13-0400 Body omdiae61 kgDO Charles Kuns Work Phone: [facility]09-27-2023 18:29-0400 Body kunsvi144.02 cmDO Charles Kuns Work Phone: [facility]09-27-2023 17:00-0400 Diastolic blood uarbrdqf40 mm[Hg]DO Charles Kuns Work Phone: [facility]09-27-2023 17:00-0400 Heart rate70 /minDO Charles Kuns Work Phone: [facility]09-27-2023 17:00-0400 Respiratory rate16 /minDO Charles Kuns Work Phone: [facility]09-27-2023 17:00-0400 SaO2% (BldA) [Mass fraction]99 %DO Charles Kuns Work Phone: [facility]09-27-2023 17:00-0400 Systolic blood pxgejadn427 mm[Hg]DO Charles Kuns Work Phone: [facility]09-27-2023 13:02-0400 Body ezthqm573.02 cmDO Charles Kuns Work Phone: [facility]09-27-2023 13:02-0400 Body qadujfsvmlf56.2 [degF]DO Charles Kuns Work Phone: [facility]09-27-2023 13:02-0400 Body pdirtl53.23 kgDO Charles Kuns Work Phone: [facility]09-25-2023 12:00-0400 Body agtuedjdpgj76.69 [degF]JOSE MARIA Hudson MD Work Phone: [facility]09-25-2023 12:00-0400Body uowsfe57.6 kgJOSE MARIA Hudson MD Work Phone: [facility]09-25-2023 12:00-0400Diastolic blood rtciiucq86 mm[Hg]JOSE MARIA Hudson MD Work Phone: [place] [address]-25-2023 12:00-0400Heart rate63 /min JOSE MARIA Hudson MD Work Phone: [place] [address]-25-2023 12:00-0400Respiratory rate 18 /CorinnaJOSE MARIA Hudson MD Work Phone: [place] [address]-25-2023 12:00-9055XlR5% (BldA) [Mass fraction]97 %JOSE MARIA Hudson MD Work Phone: [facility]09-25-2023 12:00-0400Systolic blood vafajlkh964 mm[Hg]JOSE MARIA Hudson MD Work Phone: [facility]09-13-2023 14:30-0400Body hilytc531.7 cmTapan Corona MD Work Phone: [facility]09-13-2023 14:30-0400Body temperature 97.81 [degF]Tapan Corona MD Work Phone: [facility]09-13-2023 14:30-0400Body rdiavo08.78 kgTapan Corona MD Work Phone: [facility]09-13-2023 14:30-0400Diastolic blood ihuhywgs74 mm[Hg]Tapan Corona MD Work Phone: [place] [address]-13-2023 14:30-0400Heart rate65 /min Tapan Corona MD Work Phone: [place] [address]-13-2023 14:30-0400Respiratory rate 16 /minTapan Corona MD Work Phone: [place] [address]-13-2023 14:30-1271DxX1% (BldA) [Mass fraction]99 %Tapan Corona MD Work Phone: [facility]09-13-2023 14:30-0400Systolic blood kmawcbeg788 mm[Hg]Tapan Corona MD Work Phone: [facility]09-07-2023 13:30-0400Diastolic blood pomqrayu97 mm[Hg]Laisha Singer MD Work Phone: [facility]09-07-2023 13:30-0400Heart rate66 /min Laisha Singer MD Work Phone: [facility]09-07-2023 13:30-0400Respiratory rate 18 /minLaisha Singer MD Work Phone: [facility]09-07-2023 13:30-1596EpV3% (BldA) [Mass fraction]100 %Laisha Singer MD Work Phone: [facility]09-07-2023 13:30-0400Systolic blood rgeasxqv41 mm[Hg]Laisha Singer MD Work Phone: [facility]09-07-2023 13:07-0400Body temperature 97.39 [degF]Laisha Singer MD Work Phone: [facility]08-28-2023 11:55-0400Diastolic blood bvamuepb66 mm[Hg]DO Charles Kuns Work Phone: [facility]08-28-2023 11:55-0400 Heart rate79 /minDO Charles Kuns Work Phone: [facility]08-28-2023 11:55-0400 Respiratory rate18 /minDO Charles Kuns Work Phone: [facility]08-28-2023 11:55-0400 SaO2% (BldA) [Mass fraction]100 %DO Charles Kuns Work Phone: [facility]08-28-2023 11:55-0400 Systolic blood avtuxfin461 mm[Hg]DO Charles Bazzi Work Phone: [facility]08-28-2023 09:03-0400 Body qfukae537.1 cmDO Charles Dhillons Work Phone: [facility]08-28-2023 09:03-0400 Body nvonqldtzmn75.6 [degF]DO Charles Bazzi Work Phone: [facility]08-28-2023 09:03-0400 Body obiojg92.23 kgDO Charles Bazzi Work Phone: [facility]04-24-2023 10:00-0400 Body kudocb947.1 cmCharles Bazzi Other [employer] Other 04-24-2023 10:00-0400Body mass index (BMI) [Ratio] 25.29 kg/l7HtmmyCharles Bazzi Other [employer] Other 04-24-2023 10:00-0400Body hjokuc42.95 kgBrerocio Bazzi Other [employer] Other 04-24-2023 10:00-0400Diastolic blood anfqgjsa36 mm[Hg] Charles Bazzi Other [employer] Other 04-24-2023 10:00-0400Respiratory rate16 /minBrerocio Alejopacheco Other [employer] Other 04-24-2023 10:00-2698MpM4% (BldA) [Mass fraction]96 % Charles Bazzi Other [employer] Other 04-24-2023 10:00-0400Systolic blood utczibsr328 mm[Hg] Charles Kuns Other [facility] [employer] Other 04-19-2023 14:49-0400Diastolic blood mm[Hg] Charles R Kuns Work Phone: mp488-6421IV-Hgfgs [facility] DO Work Phone: 1(387) 566-643904-19-2023 14:49-0400Systolic blood bgtfhhac667 mm[Hg] Charles R Kuns Work Phone: [phone]-Fnqcz [facility] DO Work Phone: 1(928) 676-308204-19-2023 14:48-0400Body efwayb804.83 cmBrerocio R Alejos Work Phone: mp980-5500AK-Geqqo [facility] DO Work Phone: 1(251) 648-410404-19-2023 14:48-0400Body mass index (BMI) [Ratio] 25.86 kg/t4Yyxkv R Alejos Work Phone: mp583-7847XV-Bwptk [facility] DO Work Phone: 1(322) 664-144604-19-2023 14:48-0400Body surface area Derived from formula1.76 m3Yddqi R Alejos Work Phone: mp878-7685HT-Qpsio [facility] DO Work Phone: 1(933) 657-518004-19-2023 14:48-0400Body lnkust41.4 kgBrett R Alejos Work Phone: mp859-9154ZQ-Kgvff [facility] DO Work Phone: 1(192) 134-323104-19-2023 14:48-0400Diastolic blood xrvsmqag85 mm[Hg] Charles R Kuns Work Phone: mp550-6941KS-Ursyj [facility] DO Work Phone: 1(485) 695-935404-19-2023 14:48-0400Heart rate76 /minBrett R Alejos Work Phone: mp562-4176OS-Ztfar [facility] DO Work Phone: 1(387) 416-848404-19-2023 14:48-0400Systolic blood mm[Hg] Charles Bazzi Work Phone: 1(117) 444-7535799-7097JM-Svwov [facility] DO Work Phone: 1(823) 218-177303-27-2023 10:00-0400Body niyacl287.1 cmCharles Bazzi Other [employer] Other 03-27-2023 10:00-0400Body mass index (BMI) [Ratio] 26.46 kg/v2DzasrCharles Bazzi Other [employer] Other 03-27-2023 10:00-0400Body dykoql32.12 kgBrerocio Bazzi Other [employer] Other 03-27-2023 10:00-0400Diastolic blood btqsypvy45 mm[Hg] Charlesrocio Bazzi Other [facility] Other 03-27-2023 10:00-0400Respiratory rate16 /minCharles Bazzi Other [employer] Other 03-27-2023 10:00-9674OnH6% (BldA) [Mass fraction]97 % Charlesrocio Bazzi Other [employer] Other 03-27-2023 10:00-0400Systolic blood txfzhakx260 mm[Hg] Charlesrocio Bazzi Other [employer] Other 11-09-2022 12:45-0500Body iiwvjr991.1 cmRobert [place] II Other [facility] [employer] Other 11-09-2022 12:45-0500Body mass index (BMI) [Ratio] 28.45 kg/v6Owhlvx [place] Other [employer] Other 11-09-2022 12:45-0500Body fztswe93.57 kgRobert Juan Carlos II Other [employer] Other 11-02-2022 11:30-0400Body lxukse986.1 cmRobert [place] II Other [employer] Other 11-02-2022 11:30-0400Body mass index (BMI) [Ratio] 28.45 kg/t2Lrxkwj [place] Other [employer] Other 11-02-2022 11:30-0400Body vnkhus35.57 kgRobert [place] II Other [employer] Other Encounters Encounter DateEncounter TypeCare ProviderFacilityStart: 05-15-2025 End: 31-95-8181Sphazjk encounter procedureCharles Bazzi DO-[facility] Work Phone: Start: 05-15-2025 End: 70-33-3629bujvlyxizyRiqnk Kuns DO Work Phone: -Lab [place]Start: 05-15-2025 End: 62-39-9865vilxvkwrpyAszgn Kuns DO Work Phone: -[facility] [place]Start: 05-15-2025 End: 91-89-6180Ludcnws encounter procedureCharles Bazzi DO-[facility] [place] Work Phone: Start: 93-73-6247crrfvqjzlvAOPIKNH BANFacility:[facility]art: 03-13-2025 End: 58-54-7571Jvgjdcenxq hospital visit by Jovon Singer MD Work Phone: ProceduresComment on above:Encounter for follow-up surveillance of rectal cancer [Z08, Z85.048]Start: 03-05-2025 End: 40-04-2125E-mail encounter from Adela Corona MD Work Phone: HematologyStart: 03-05-2025 End: 60-42-6952Bmdjcfb encounter procedureTapan Corona MD Work Phone: HematologyComment on above:ConfidentialStart: 03-04-2025 End: 74-53-8955Aenuazlks Result EncounterCathleen TAY Work Phone: noms External Department UnsolicitedStart: 03-04-2025 End: 41-38-4582Kkmplqkwn Result EncounterCathleen TAY Work Phone: noms External Department UnsolicitedStart: 03-04-2025 Non-patient / Non-visitCathleen TAY-[facility] Work Phone: Start: 03-03-2025 End: 48-29-7903ipldveyctcBzuqxqxPriscilla Robledo MDFacility:[facility] Start: 02-20-2025 End: 85-46-6972Jsjidlmch to same day surgery Yuki Lindquist RNColorectal SurgeryComment on above:history of colon cancerStart: 02-20-2025 End: 49-94-2060Rgzxfnw encounter procedureTapan Corona MD Work Phone: HematologyComment on above:History of rectal cancer (Primary Dx)Encounter for follow-up surveillance of rectal cancer (Primary Dx); Low anterior resection syndromeStart: 02-20-2025 End: 46-57-8126ncglgzcqocOnfovc Markov RNColorectal SurgeryStart: 02-19-2025 End: 42-94-2030qyoxhmbqmbOprwkoat A Wiebuscvasu PT Work Phone: Physical TherapyComment on above:Muscle spasm (Primary Dx)Start: 02-10-2025 End: 16-32-3273dbootylnlpQTKIT ROGER KUNSFacility:[facility] Start: 04-75-1272cjotyhuswoUNGUH ROGER KUNSFacility:[facility] Start: 02-10-2025 End: 69-70-1164Vsbevodrbs hospital visit by physicianArrival Time Radiology Work Phone: Radiology Pet CTComment on above:History of rectal cancer [Z85.048]Start: 01-28-2025 End: 44-51-4173xufsgspyxrTxcvpyan A Wiebusch PT Work Phone: Physical TherapyComment on above:Muscle spasm (Primary Dx); Low anterior resection syndromeStart: 01-03-2025 End: 57-82-1644Zgzqugskq to same day surgery centerLaisha Singer MD Work Phone: Colorectal SurgeryComment on above:survey on LARS for Dr Franciscoart: 01-03-2025 End: 60-94-3962N-mail encounter from caregiverLaisha Singer MD Work Phone: Colorectal SurgeryStart: 01-03-2025 End: 74-69-2859Eojgpgriy encounterLaisha Singer MD Work Phone: Colorectal SurgeryComment on above:Returning Patient's CallStart: 01-02-2025 End: 91-31-1310Opujtmemi to same day surgery centerLaisha Singer MD Work Phone: Colorectal SurgeryComment on above:DiarrheaStart: 01-02-2025 End: 86-34-8251khpharmumqDpcqmcv Ban MD Work Phone: Colorectal SurgeryStart: 11-11-2024 End: 68-41-8077ayfzhvfocaOskjgzaPriscilla Robledo MDFacility:[facility] Start: 11-05-2024 End: 95-73-3265unifarnbdjELTOU ROGER KUNSFacility:[facility] Start: 11-05-2024 End: 11-23-4398Sesxbrrpu to same day surgery purlearAle Marie APRN.CNP Work Phone: Colorectal SurgeryComment on above:ManometryStart: 11-05-2024 End: 51-52-3591Yfszdts encounter procedureAle Marie APRN.CNP Work Phone: Colorectal SurgeryStart: 11-04-2024 End: 20-64-8932zwssjsiqwtUhcohmd Vytautas Giedraitis MDFacility:[facility] Start: 10-31-2024 End: 02-08-4630btjptdxdmfXNMMJ ROGER KUNSFacility:[facility] Start: 10-20-2024 End: 16-91-6388Ydvomqgrb to same day surgery centerLaisha Singer MD Work Phone: Colorectal SurgeryComment on above:My bowel urgencies and weight gainStart: 10-20-2024 End: 08-88-0679iwlszzumysKecmcjw Ban MD Work Phone: Colorectal SurgeryStart: 10-18-2024 End: 67-62-9701aorwvmwaheDtxgz Kuns DO Work Phone: [facility] Work Phone: Start: 10-18-2024 End: 42-44-7027Cdncnpy encounter procedureBrett Kuns DO Work Phone: [facility] Work Phone: Start: 10-18-2024 End: 29-84-1758Czthwqd encounter procedureBrett Kuns DO Work Phone: [facility] Start: 10-18-2024 End: 83-29-3482hdwnkfihvhGturp Kuns DO Work Phone: [facility] Work Phone: Start: 10-09-2024 End: 97-75-9432xogdhwjasfOSSZX ROGER KUNSFacility:[facility] Start: 10-09-2024 End: 21-63-3482Uynthv outpatient visit 15 minutesG Shan Hudson MD Work Phone: Radiation OncologyComment on above:Rectal adenocarcinoma (HCC) (Primary Dx)Start: 09-27-2024 End: 07-11-7594Hcebrxb encounter procedureBrett Kuns DO Work Phone: [facility] Work Phone: Start: 09-27-2024 End: 10-97-4244ggsacnttndVclsk Kuns DO Work Phone: [facility] Work Phone: Start: 61-61-7131Jvp-patient / Non-visitBrett Kuns DO Work Phone: [facility] Work Phone: Start: 09-18-2024 End: 44-25-8342Omtdzatit to same day surgery centerBrett Kuns DO Work Phone: [facility] Work Phone: Start: 09-18-2024 End: 61-17-4438fwhvocroqzVftvs Kuns DO Work Phone: [facility] Work Phone: Start: 09-09-2024 End: 27-24-0993elnmxtovedUfkce Kuns DO Work Phone: [facility] Work Phone: Start: 09-09-2024 End: 30-18-2316Lsrumfn encounter procedureBrett Kuns DO Work Phone: [facility] Work Phone: Start: 09-04-2024 End: 85-33-9596njfvagfnrmFxvdd Kuns DO Work Phone: [facility] Work Phone: Start: 09-04-2024 End: 06-69-4019Hyejtcm encounter procedureCharles Dhillons DO Work Phone: [facility] Work Phone: Start: 09-03-2024 End: 83-81-6516whnujphcabILLUL ROGER KUNSFacility:[facility] Start: 09-03-2024 End: 83-54-9752Dleslbb encounter Primo Corona MD Work Phone: HematologyComment on above:History of rectal cancer (Primary Dx); Rectal cancer (HCC)Start: 08-27-2024 End: 81-90-9305Pubzwjtpz encounterGagandeep Ward RNHematologyComment on above: Results, LabStart: 97-14-8052Njw-patient / Non-visitBrerocio Dhillons DO Work Phone: [facility] Work Phone: Start: 08-26-2024 End: 24-23-8487Jssgynumf to same day surgery centerBrerocio Bazzi DO Work Phone: [facility]Start: 08-26-2024 End: 73-95-1023vbyrataszgIrslj Kuns DO Work Phone: [facility] Work Phone: Start: 08-20-2024 End: 12-81-2951Yrkwssz encounter procedureBrerocio Dhillons DO Work Phone: [facility] [employer] Work Phone: Start: 08-20-2024 End: 72-43-4967vvkkekburvXuhag Kuns DO Work Phone: [facility] Work Phone: Start: 03-63-0734Yssogrnfb for preprocedural cardiovascular examinationCorichard ChesterTrinity Community Hospital Physician GroupStart: 08-19-2024 End: 01-27-7243yvfyoqsekwHTJHB OPAL DIXIEFacility:[facility] Start: 56-79-7020Fob-patient / Non-visitBrerocio Bazzi DO Work Phone: [facility] Work Phone: Start: 08-14-2024 End: 78-87-8076mqjbkwfpibNikyj Kuns DO Work Phone: [facility] Work Phone: Start: 08-14-2024 End: 11-61-3582Farzjjh encounter procedureCharles Dhillons DO Work Phone: [facility] Physician [facility] Work Phone: Start: 07-17-2024 End: 35-99-4130xjfcbutrfkVamwu Kuns DO Work Phone: [facility] Work Phone: Start: 07-17-2024 End: [id number] encounter procedureCharles Dhillons DO Work Phone: [facility] Work Phone: Start: 07-15-2024 End: [id number] Vyttereas Giedraitis Facility:[facility] Start: 06-25-2024 End: 36-14-1214Arkutgs encounter procedureBrerocio Dhillons DO Work Phone: [facility] Work Phone: Start: 06-11-2024 End: [id number] encounter procedureBrett Alejos DO Work Phone: [facility] Work Phone: Start: 06-11-2024 End: [id number] encounter procedureBrerocio Dhillons DO Work Phone: [facility] Work Phone: Start: 06-04-2024 End: [id number] encounter procedureBrett Kuns DO Work Phone: [facility] Work Phone: Start: 06-04-2024 End: 69-25-3185uqxzqgydkqAaayg AlejosFacility:[facility] Start: 38-65-0580Rjs-patient / Non-visitBrett Kuns DO Work Phone: [facility] Work Phone: Start: 05-31-2024 End: 99-24-8607Kyiwtbfxq to same day surgery centerBrett Kuns DO Work Phone: [facility] Center Main TerltonStart: 05-31-2024 End: 04-89-6409drultnuxmwGuspkhc R CalvFacility:[facility] Systemtart: 05-30-2024 End: 74-50-8806Yjubwzk encounter procedureBrett Kuns DO Work Phone: [facility] Work Phone: Start: 05-30-2024 End: 92-05-7632hxuxfgvhjwPcite Kuns DO Work Phone: [facility] Work Phone: Start: 05-23-2024 End: 92-75-9024Ecggaaygh department patient visitBrett Kuns DO Work Phone: [facility] Work Phone: Start: 23-46-9342Dlg-patient / Non-visitBrett Kuns DO Work Phone: [facility] Work Phone: Start: 05-22-2024 End: 50-43-5120Alpbtjxfw department patient visitBrett Kuns DO Work Phone: [facility] Work Phone: Start: 05-08-2024 End: 53-54-3073Qpngaqt encounter procedureTapan Corona MD Work Phone: HematologyComment on above:History of rectal cancer (Primary Dx)Start: 33-13-0145Ppd-patient / Non-visitBrett Kuns DO Work Phone: [facility] Work Phone: Start: 05-08-2024 End: 43-78-0002sjqqdveeghDGFKI KARAMLOUFacility:[facility] Hospitaltart: 04-30-2024 Non-patient / Non-visitBrett Kuns DO Work Phone: [facility] Work Phone: Start: 04-23-2024 End: 31-28-1600Xmtqxruaq Result EncounterCorey Aliya DO Work Phone: noms External Department UnsolicitedStart: 04-23-2024 End: 89-16-2794Mstooacph Result EncounterCorey Aliya DO Work Phone: noms External Department UnsolicitedStart: 04-10-2024 End: 69-72-0428Rntalwh encounter procedureG Shan Hudson MD Work Phone: Radiation OncologyComment on above:Rectal adenocarcinoma (HCC) (Primary Dx)Start: 03-25-2024 End: 93-24-7536auwjvdeqpoHlmhwhp Vytautas Giedraitis Facility:[facility] Start: 03-18-2024 End: 51-26-2230zhvmvjlgycFpffbwu Vytautas Giedraitis MDFacility:[facility] Start: 02-21-2024 End: 33-78-3998Bbslvhvku Result EncounterCathleen TAY Work Phone: NOWT External Department UnsolicitedStart: 02-21-2024 End: 16-66-1875Mmbcfpxii Result EncounterCathleen Cooley JASVIR Work Phone: noms External Department UnsolicitedStart: 02-21-2024 Telephone encounterKari Carrillo RNHematology/OncologyComment on above: Signatera resultsStart: 02-21-2024 End: 25-24-3555fhsovpdavuDAZ RAMEYNot AvailableStart: 02-20-2024 End: 38-99-9144uzeyehlfbsAFYEI A HUDDLESTONNot AvailableStart: 02-07-2024 End: 50-13-3366miavkejdziKZAYRM VNot AvailableStart: 49-12-6498Lilxtwyvh encounterTapan Corona MD Work Phone: Cancer Appts MCComment on above:Future Appointment Refill RequestStart: 02-06-2024 End: 14-26-9112wqbbrhijzpDvyzyFederica Corona MD Work Phone: Hematology/OncologyComment on above:History of rectal cancer (Primary Dx)Start: 02-06-2024 End: 48-70-2881Srtpdsd encounter Primo Corona MD Work Phone: Hematology/OncologyStart: 04-82-4907Uocnphnwz encounterLaisha Singer MD Work Phone: Colorectal SurgeryComment on above:Patient Question Start: 01-12-2024 End: 68-34-5332wikrmqbmnfQIVEWX VNot AvailableStart: 01-09-2024 End: 63-07-0264Cavzqdu encounter procedureLaisha Singer MD Work Phone: Colorectal SurgeryComment on above:Follow-up examination after colorectal surgery (Primary Dx); Rectal cancer (HCC); Low anterior resection syndromeStart: 01-09-2024 End: 80-73-6201diuwsxeqmlJJHCP A HUDDLESTONNot AvailableStart: 01-08-2024 Telephone encounterColleen Solorio RN Work Phone: Hematology/OncologyComment on above:Care Coordination (Lab question)Start: 01-02-2024 End: 06-28-4174zjhhyhiqonFDDZB A HUDDLESTONNot AvailableStart: 12-26-2023 End: 18-60-9800vcrxadyjivNKSJG A HUDDLESTONNot AvailableStart: 12-12-2023 Telephone encounterTapan Corona MD Work Phone: Radiation OncologyComment on above:Port RemovalStart: 11-24-2023 End: 05-67-0763Qwmztbi encounter procedureBrandie Salmeron APRN.ACCOUNT SERVICES ASSOCIATE Work Phone: Colorectal SurgeryComment on above:Follow-up examination after colorectal surgery (Primary Dx)Start: 95-14-8746Cgvrkiztl to same day surgery centerLaisha Singer MD Work Phone: Colorectal SurgeryComment on above:Sharp, Burning Pain R Hip AreaStart: 09-75-4069udhyndcdflXazpcgf Ban MD Work Phone: Colorectal SurgeryStart: 94-51-5386Prqqnwxzj encounter Colleen Solorio RN Work Phone: Hematology/OncologyComment on above:Care Coordination (Hospital d/c follow up call)Start: 11-06-2023 End: 75-98-8688Igdypuwqwe and management of inpatientCHARLES BAZZI [facility]Start: 01-13-5854Cbudlbmoj encounterColleen Solorio RN Work Phone: Hematology/OncologyComment on above:Care Coordination (Lab results)Patient QuestionStart: 76-36-6581Oxgaolrhf to same day surgery centerLaisha Singer MD Work Phone: Colorectal SurgeryComment on above:Frequent Bowel Obstructions/PlanStart: 71-54-9164qnzgcmwrsuLhzxazx Ban MD Work Phone: Colorectal SurgeryStart: 53-31-1805Cbf-patient / Non-visitDO Charles Bazzi Work Phone: [facility] Work Phone: Start: 10-26-2023 End: 21-97-4933Mvaqucmwfg and management of inpatientDO Charles Bazzi Work Phone: [facility] Work Phone: Start: 80-89-2804Nuqkvvtyy encounterLaisha Singer MD Work Phone: Colorectal SurgeryComment on above:Patient Question; Medication QuestionStart: 10-24-2023 End: 08-88-5019ujhdgznaviWI Charles Bazzi Work Phone: [facility] Work Phone: Start: 10-24-2023 End: 56-81-6728Aavprae encounter procedureDO Charles Bazzi Work Phone: [facility] Work Phone: Start: 39-60-1453Bepibwu encounter procedureCcf ProviderTogus Va Medical Center DepartmentStart: 70-90-4597Cqnhzmefi encounterColleen Solorio RN Work Phone: Hematology/OncologyComment on above:Care Coordination (signatera)Start: 10-10-2023 End: 56-89-7849Aanrpak encounter procedureMark Sarthak LMT Work Phone: Hematology/OncologyComment on above:Muscle soreness (Primary Dx)Rectal adenocarcinoma (HCC) (Primary Dx)Start: 87-76-6374Ope-patient / Non-visitDO Charles Dhillonpacheco Work Phone: [facility] Work Phone: Start: 10-10-2023 End: 70-72-3739bzlnmgzkktAxm/Port Gabe Ghassan Work Phone: Hematology/OncologyComment on above:History of rectal cancerHistory of rectal cancer (Primary Dx)Start: 10-02-2023 End: 57-35-4286bpfepauvmsJIGJI B APLINGNot AvailableStart: 09-30-2023 End: 71-60-7157Wgi-patient / Non-visitDO Charles Bazzi Work Phone: [facility] Work Phone: Start: 09-30-2023 End: 22-56-4845Aelivxrrjv and management of inpatientDO Charles Bazzi Work Phone: [facility] Work Phone: Start: 09-22-2023 End: 44-63-1683Paslamr encounter Jeff Salmeron APRN.CNP Work Phone: Colorectal SurgeryComment on above:Follow-up examination after colorectal surgery (Primary Dx)Start: 03-52-5530ndjisdzclp Laisha Singer MD Work Phone: Colorectal SurgeryComment on above:Conference recommendationsStart: 60-38-9287Q-mail encounter from caregiverLaisha Singer MD Work Phone: EDWALL MCStart: 54-81-6844Yfzrljixr encounter Colleen Solorio RN Work Phone: Hematology/OncologyComment on above:Care Coordination (Hospital d/c follow up call)Care Coordination (Follow up appointment)Start: 08-89-8483Xnmrafnwy to same day surgery centerLaisha Singer MD Work Phone: Colorectal SurgeryComment on above:Surgery pathology Start: 50-82-7709P-mail encounter from caregiverLaisha Singer MD Work Phone: EDWALL MCStart: 83-21-9884Yfeksafvi encounter Laisha Singer MD Work Phone: Colorectal SurgeryComment on above:Bradder - Other (Tumor board)Start: 36-58-5708Dps-patient / Non-visitDO Charles Bazzi Work Phone: [facility] Work Phone: Start: 17-18-1559Mtw-patient / Non-visitDO Charlesrocio Dhillons Work Phone: [facility] Work Phone: Start: 66-49-9921Tez-patient / Non-visitDO Charlesrocio Dhillons Work Phone: [facility] Work Phone: Start: 30-95-6896Dciymimcs encounterTifgemma Solorio RN Work Phone: Hematology/OncologyComment on above:Care Coordination (Hospital d/c follow up call)Start: 22-04-2957Zxg-patient / Non-visitDO Charles Dhillons Work Phone: [facility] Physician [facility] Work Phone: Start: 08-31-2023 End: 21-44-9080Yahrztulee and management of inpatientCHARLES BAZZI [facility]: 77-37-3345Wyv-patient / Non-visitDO Charlesrocio Dhillons Work Phone: firelandw Physician [facility] Work Phone: Start: 91-55-5811Ckv-patient / Non-visitDO Charles Kuns Work Phone: [facility]onz Physician [facility] Work Phone: Start: 14-63-3203Tpi-patient / Non-visitDO Charles Kuns Work Phone: firbronsono Physician [facility] Work Phone: Start: 75-98-2940Cnv-patient / Non-visitDO Charles Kuns Work Phone: firbronsonx Physician [facility] Work Phone: Start: 18-21-4287Wxs-patient / Non-visitDO Charles Aeljopacheco Work Phone: [facility] Work Phone: Start: 61-81-9091Qki-patient / Non-visitDO Charles Bazzi Work Phone: [facility] Work Phone: Start: 08-25-2023 End: 59-46-9923Lyimqkmejk and management of inpatientKRISTEN BAN [facility]: 08-11-2023 End: 43-80-9128URCAtqb [facility] [place] [facility] Work Phone: [facility] AnesthesiaComment on above:Pre-op examination (Primary Dx); Atrial fibrillation, unspecified type (HCC); Essential hypertension; Hyperlipidemia, unspecified hyperlipidemia type; Gastroesophageal reflux disease without esophagitis; Other iron deficiency anemia; Rectal cancer (HCC); Mixed anxiety depressive disorderStart: 08-11-2023 End: 61-93-5800Plpipcxirbjys examination doneShriners Hospitals For Children 2 Work Phone: [facility] Work Phone: Start: 07-25-2023 End: 19-29-9720xscpzvbohwRTMANCAGarnet Health AmbulatoryStart: 07-25-2023 End: 78-59-0118Owethq outpatient visit 15 minutesMarcos Rios MD Work Phone: FirelandsComment on above:Other chest pain (Primary Dx); Essential hypertension; Colorectal cancer (CMS/HCC); BMI 24.0-24.9, adult; History of atrial fibrillationStart: 07-04-2023 End: 31-68-2751gjxtfrxcsaWSAEIG VARGAS VNot AvailableStart: 06-26-2023 End: 85-35-4123Bocopylgt to same day surgery centerDO Charles Bazzi Work Phone: [facility] CampusStart: 06-26-2023 End: 44-30-3302xywjxgvgrwAH Charles Bazzi Work Phone: [facility] Work Phone: Start: 51-88-2468Tkibvxmne encounterTifgemma Solorio RN Work Phone: Hematology/OncologyComment on above:Care Coordination (Medication update)Start: 06-20-2023 End: 95-32-5460Aklxkcq evaluation of patient and reportTifgemma Solorio RN Work Phone: Hematology/OncologyComment on above:Rectal cancer (HCC) (Primary Dx)Start: 06-19-2023 End: 51-13-5878zcvfnmsjzgFECPNP VARGAS VNot AvailableStart: 06-14-2023 End: 79-77-9060cffhtrfmbvNdntu Karamlou MD Work Phone: Hematology/OncologyComment on above:Rectal cancer (HCC) (Primary Dx)Start: 06-14-2023 End: 41-94-3445Ptnkszt encounter procedureTapan Corona MD Work Phone: SANDUSKYStart: 06-13-2023 End: 66-72-3034jfghbqcrleXQCUJ A HUDDLESTONNot AvailableStart: 06-12-2023 End: 43-72-4575Ngzrpjyvuc hospital visit by physicianNunu 6 [address] Main Q (I-Stat/1.5t/3t) Work Phone: MRP QComment on above:Rectal cancer (HCC) [C20]Start: 79-42-7606Lqbcbnajf encounterKaren (Pss) RepasyRadiologyComment on above: Appointment reminder (Appointment reminder call--spoke with patient--gave directions to the office.)Start: 06-08-2023 End: 04-57-6122Oiyqdetebp hospital visit by Jovon Singer MD Work Phone: ProceduresComment on above:Rectal cancer (HCC) [C20] Start: 05-29-2023 End: 51-62-7646Ytoopjb encounter procedureDel Hudson MD Work Phone: Radiation OncologyComment on above:Rectal adenocarcinoma (HCC) (Primary Dx)Start: 05-11-2023 End: 47-95-9554dcqoedczvlHfacx Kuns Other [facility] Other Start: 63-91-2049Smedhvhub encounterCharles Joseph [facility] CastaliaStart: 56-75-5984Xurqpkr encounter procedureG Shan Hudson MD Work Phone: SANDUSKYStart: 42-68-3174Zkphflawh Oncology NoteG Shan Hudson MD Work Phone: Radiation OncologyComment on above:Completion Note Start: 05-08-2023 End: 65-29-8511Jkwoklb encounter procedureG Shan Hudson MD Work Phone: Radiation OncologyComment on above:Rectal adenocarcinoma (HCC) (Primary Dx)Start: 46-77-1494Wtuhaed encounter procedure Osmany Lee LMTHematology/OncologyComment on above:Muscle soreness (Primary Dx)Start: 05-01-2023 End: 25-94-3607nhabdoauoiFhsgb Kuns Other [facility] Other Start: 10-94-5560Ufegby outpatient visit 25 minutes Charles EwingG [facility] CastaliaStart: 05-01-2023 End: 48-77-0590Thxixig encounter procedureLab/Port Arron [place]ita Work Phone: Radiation OncologyComment on above:Dysuria (Primary Dx)Dysuria (Primary Dx); Rectal adenocarcinoma (HCC)Start: 04-28-2023 End: 11-02-4028gmglsappbvOfsikFederica Corona MD Work Phone: Hematology/OncologyComment on above:Rectal cancer (HCC) (Primary Dx)Start: 04-28-2023 End: 63-80-1362Qzxfdlf encounter procedureTapan Corona MD Work Phone: SANDUSKYStart: 91-67-8285Dgqezgu encounter procedure Osmany Lee LMTHematology/OncologyComment on above:Muscle soreness (Primary Dx)Start: 04-24-2023 End: 92-87-4663Epngvjh encounter procedureG Shan Hudson MD Work Phone: Radiation OncologyComment on above:Rectal adenocarcinoma (HCC) (Primary Dx)Start: 04-14-2023 End: 89-63-9984zgfhcqbagkKtftn Karamlou MD Work Phone: Hematology/OncologyComment on above:Rectal cancer (HCC) (Primary Dx)Start: 04-14-2023 End: 15-06-7889Jowoznt encounter procedureTapan Corona MD Work Phone: SANDUSKYStart: 04-10-2023 End: 17-22-3567Qmvkuyb encounter procedureG Shan Hudson MD Work Phone: Radiation OncologyComment on above:Rectal adenocarcinoma (HCC) (Primary Dx)Start: 13-12-5324Gmlemptku encounterMylene (Rn) [facility] Radiology ProcedureComment on above:Radiology Pre Procedure InstructionsStart: 98-13-4559iqqnmonxzkCbLupis Bazzi Facility:[id number]: 04-05-2023 End: 28-88-6185Rhhhbzleix and management of inpatientDO Charles Dixie Work Phone: [facility] Work Phone: Start: 04-05-2023 End: 08-94-9827lrifzahxmrh encounterDO Charles Dixie Work Phone: [facility] Work Phone: Start: 90-51-0511Myrimckvw encounterTifgemma Solorio RN Work Phone: Hematology/OncologyComment on above:Care Coordination (Clinical update)Care Coordination (ER recommendations)Start: 04-03-2023 Telephone encounterTiffany G Osmin RN Work Phone: Hematology/OncologyComment on above:Care Coordination (C1D1 treatment follow up call)Start: 04-03-2023 End: 06-59-2986Xmagfny encounter procedureDel Hudson MD Work Phone: Radiation OncologyComment on above:Rectal adenocarcinoma (HCC) (Primary Dx)Start: 03-28-2023 End: 46-77-6882ceulannhuaQcri Asaad Other [facility] Other Start: 54-01-0401Tpticjzox encounterImad AsaadFPGood Samaritan Hospital SanduskyStart: 03-22-2023 End: 41-29-3577Gxawknnuhx hospital visit by physicianDel Hudson MD Work Phone: Radiology Pet CTStart: 03-22-2023 End: 44-69-2345rswxxhtdlhNlzgm Karamlou MD Work Phone: Hematology/OncologyComment on above:Rectal cancer (HCC) (Primary Dx)Patient EducationStart: 03-22-2023 End: 43-35-9846Rbqdznq evaluation of patient and reportTifgemma Solorio RN Work Phone: Hematology/OncologyComment on above:Rectal cancer (HCC) (Primary Dx)Refill RequestStart: 03-22-2023 End: 82-14-9676Ezxdaot encounter Primo Corona MD Work Phone: SANDUSKYComment on above:Rectal adenocarcinoma (HCC) (Primary Dx)Start: 01-74-3050Wscdkjlfa Oncology NoteG Shan Hudson MD Work Phone: Radiation OncologyComment on above:Treatment Planning Start: 87-98-6256Drpwkgonb encounterTifgemma Solorio RN Work Phone: Hematology/OncologyComment on above:Care Coordination (Treatment plan)Start: 03-16-2023 End: 91-08-2150Xnmqthhraa hospital visit by Jovon Singer MD Work Phone: ProceduresStart: 34-45-6096tjnyuvsvgbDJBOTS PHILLIP ENGELERFacility:[facility] Hospitaltart: 03-15-2023 End: 48-38-6687Bhoixyagwu hospital visit by Rekha Lares (I-Stat/1.5t) Work Phone: RadiologyComment on above:Rectal adenocarcinoma (HCC) [C20]Start: 03-08-2023 End: 18-24-1375Tsappyn encounter procedureG Shan Hudson MD Work Phone: Radiation OncologyComment on above:Rectal adenocarcinoma (HCC) (Primary Dx)Start: 52-82-6784Pzqcf Aruna Corona MD Work Phone: Hematology/OncologyStart: 02-03-3182Jyozgbpin encounterG Shan Hudson MD Work Phone: Radiation OncologyComment on above:OrdersStart: 03-06-2023 End: 75-82-4023Ivdobhlzt to same day surgery purlearDO Charles Bazzi Work Phone: [facility] Work Phone: Start: 02-28-2023 End: 76-86-8675jbcglhtpelAihjt Kuns Other [employer] Other Start: 26-07-0945Rxvujuyhu encounterBrerocio EwingG Family Medicine CastaliaStart: 02-23-2023 End: 95-54-5992rbymrotxlrRgpo Asaad Other [employer] Other Start: 26-36-7156Epqgxcvmk encounterImad AsaadJERMAINE Referral CoordinatorStart: 02-07-2023 End: 47-11-0867lrftjqnuvfRxdgk Kuns Other [employer] Other Start: 15-47-9000Ottkizhct encounterBrett KaylinG Family Medicine CastaliaStart: 11-07-2022 End: 25-06-7133apunyexezeFC JAIRON ALIYA .Facility:K3Sjhpd: 11-03-2022 End: 53-90-8302xnxtzqdavnVJ JAIRON ALIYA .Facility:L2Onvfg: 10-31-2022 End: 09-79-4790jphrgkypjuTadas Kuns Other [employer] Other Start: 42-88-5646Dczhku outpatient visit 25 minutes Charles EwingG Family Medicine CastaliaStart: 16-26-0147Kchcco consultation new/estab patient 40 minBrerocio Bazzi Work Phone: [phone]-Qggxl [facility] DO Work Phone: Start: 09-81-3016opwqgtvqmbLqLupis Rios Facility:[id number]: 10-11-2022 End: 67-36-0121ebscetquxdQqczd Kuns Other [employer] Other Start: 35-45-1259Dzzcblynj encounterBrett KaylinG Family Medicine CastaliaStart: 10-03-2022 End: 15-49-0059mmszdcchopFmrkf Kuns Other [employer] Other Start: 68-09-5325Pzlxii outpatient visit 25 minutes Charles EwingG Family Medicine CastaliaStart: 52-58-4427Znvhjxcmo encounterBrett DixieFPG Family Medicine CastaliaStart: 09-22-2022 End: 10-41-7121ppymrjajjtGvpkk Kuns Other [employer] Other Start: 26-09-2756Lvyhhctdo encounterBrett DixieFPG Family Medicine CastaliaStart: 09-20-2022 End: 99-19-8422euinosnjndSilgm Alejos Other [facility] Other Start: 97-72-4783Dzxxnxzfn encounterBrett AlejosFPG Family Medicine CastaliaStart: 09-06-2022 End: 09-20-0855xrxzjfjoxnLzffl Kuns Other [place] [employer] Other Start: 10-12-1592Lahnchxpe encounterBrett DixieFPG Family Medicine CastaliaStart: 09-05-2022 End: 06-15-1032xmbrsbbucxVzxre Kuns Other [place] [employer] Other Start: 77-02-5894Cstqtugfh encounterBrett DixieFPG Family Medicine CastaliaStart: 09-01-2022 End: 64-30-4672kbytmceifaRKCUPU CARLISLEFacility:C7Cdlfn: 08-18-2022 End: 89-01-3440bwqubyrknzKtbtpn [place] Other [facility] Other Start: 65-86-6283Hrhowd outpatient visit 25 minutes Caroline Rangel IIFPG [facility]ks OrthopedicsStart: 08-17-2022 End: 59-74-0906ncyqmoloqqOvrcw Kuns Other [facility] Other Start: 43-23-7836Lklaoyuqi encounterBrett DixieFPG Family Medicine CastaliaStart: 05-25-2022 End: 59-32-3713qyxhkqyxzgPB Charles Kuns Work Phone: [facility] Work Phone: Start: 05-25-2022 End: 37-52-4765Vbbilph encounter procedureDO Charles Kuns Work Phone: [facility]-Lab CastaliaStart: 05-20-2022 End: 47-25-0776gcjgqhfybsYJ Brett Kuns Work Phone: [facility] Work Phone: Start: 05-20-2022 End: 73-55-0116Sbyhldk encounter procedureDO Charles Bazzi Work Phone: [facility] Start: 05-18-2022 End: 87-95-8187vpvtjeabfaIomct Kuns Other [employer] Other Start: 66-59-6371Giungdgpj by computer Ed DEAN [facility] OrthopedicsStart: 60-17-2922Opzahn outpatient visit 25 minutes Caroline LEWIS [facility]icsStart: 05-11-2022 End: 26-93-6245pavufkauzaNkvndx [place] Other [employer] Other Start: 19-57-3747Rbjoqp outpatient visit 25 minutes Caroline LEWIS [facility] OrthopedicsStart: 04-27-2022 End: 25-22-9331wgbqpbluuhMdnsu Kuns Other [employer] Other Start: 62-00-1126Ielylsbqx encounterBrerocio Joseph [facility] CastaliaStart: 04-20-2022 End: 14-81-8174rlcvimjsnxQvsdi Kuns Other [employer] Other Start: 32-77-0162Vxtybcejl encounterBrerocio EwingG Family Medicine CastaliaStart: 02-11-2022 End: 65-32-1290cfeglytcjqDviifo [place] Other [employer] Other Start: 34-53-8990Zmjmry outpatient new 45 minutes Caroline Rangel IIFPG [facility] OrthopedicsStart: 02-11-2022 End: 48-74-0983Duulauo encounter procedureDO Charles Bazzi Work Phone: [facility]-XRrenard [facility] Start: 46-23-9346FgbwdexsnaWPDAD KUNPachecoFacility:1532Patient encounter statusBrerocio Bazzi Work Phone: [phone]-Cievf [facility] DO Work Phone: Procedures DateProcedureProcedure DetailPerforming ClinicianStart: 30-35-8678Hcdnygxxitl flx dx w/collj spec when pfrmdKpedrito Singer MD Work Phone: Start: 99-75-2315ZrgjslulpqsNkuvaug Ban MD Work Phone: Start: 64-54-1302CKI CALCIUMAmy Lenora PA Work Phone: Start: 21-82-2635TZQ CREATININEAmy Penitas PA Work Phone: Start: 29-64-9508Bpmzy count complete auto&auto difrntl wbcTapan Corona MD Work Phone: Start: 69-51-4309RHTAJ [place] ANORECTAL MANOMETRYLaisha Singer MD Work Phone: Start: 84-98-6080Tsyil X-ray of right handBrerocio Bazzi DO Work Phone: Start: 15-81-3976Vlolf X-ray of right handBrerocio Bazzi DO Work Phone: Start: 26-26-3937OjswuneraylKdhnr Kuns DO Work Phone: Start: 61-84-5419Znaecmd microbial cultureBrerocio Bazzi DO Work Phone: Start: 12-15-0909Uhnbevbwb microbial cultureBrerocio Bazzi DO Work Phone: Start: 93-59-3363Umor stain microscopyCharles Bazzi DO Work Phone: Start: 89-21-7719Iqzoecbcudg of interphalangeal joint of fingerCharles Bazzi DO Work Phone: Start: 90-99-0794Y-ray of right middle fingerCharles Bazzi DO Work Phone: Start: 63-99-5099Xxieortbrzukybub antigen ceaCharles Bazzi DO Work Phone: Comment on above:Carcinoembryonic antigen test is used as an aid in monitoring response to treatment or recurrence in patients with established colorectal, breast, lung, prostatic, pancreatic, and ovarian carcinomas.Clinical correlation is required.The Carcinoembryonic antigen test was performed using the [employer] DXI paramagnetic particle chemiluminescent immunoassay method. Results obtained with different assay methods or kits cannot be used interchangeably.Start: 04-79-6809Hprilgv microbial cultureCharles Bazzi DO Work Phone: Start: 43-15-9921Irljapdtj microbial cultureCharles Bazzi DO Work Phone: Start: 20-34-5484Ctbs stain microscopyCharles Bazzi DO Work Phone: Start: 49-24-8299Xvxlygir and drainage of lower extremityCharles Bazzi DO Work Phone: Start: 13-58-4800Yfedg X-ray of right handCharles Bazzi DO Work Phone: Start: 57-72-0375Hmikhezo identified in Blood by CultureCharles Bazzi DO Work Phone: Start: 02-18-3723Shekujyq identified in Blood by CultureCharles Bazzi DO Work Phone: Start: 64-39-9641Utxcophtt ID (NA Multiplex Assay) Charles Bazzi DO Work Phone: Start: 87-86-8345G-ray of right middle fingerCharles Bazzi DO Work Phone: Start: 79-19-7096Rtkglnlzxnekppzh antigen ceaBrerocio Bazzi DO Work Phone: Comment on above:Carcinoembryonic [...] methods or kits cannot be used interchangeably.Start: 46-88-9937YD TOMOSYNTHESIS SCREENING BICorey Aliya DO Work Phone: Start: 87-72-6972ToiphwsbuwhKgb Ramey PA Work Phone: Start: 04-86-8314YIT,APTIMA HPV,AGE GDLNCathleen Lenora TAY Work Phone: Start: 01-12-2024H/O: ileostomyIleostomy statusCathleen TAY Work Phone: Start: 68-90-3311Iinwjkow screenKRISTEN BANComment on above:Order Comment: Specimen Type: BLOOD SPECIMENOrdering Facility: [facility] Address:[address] [place], [place] [address]Performed By: #### TSCR ####LEONA BLOOD BANKIA [id number] [place] [address] [place] STATES OF AMERICAStart: 27-92-5727Wfpdzysaoj radiography of abdomen DO Charles Bazzi Work Phone: Start: 97-68-5105AQ angiography of thoraxDO Charles Bazzi Work Phone: Start: 36-89-8151Dbfxkzpi tomography of abdomen and pelvis with contrastDO Charles Bazzi Work Phone: Start: 37-14-0164Wufku cultureDO Charles Bazzi Work Phone: Start: 48-16-2197Lhgst count complete auto&auto difrntl wbcTapan Corona MD Work Phone: Comment on above:Carcinoembryonic antigen test is used as an aid in monitoring response to treatment or recurrence in patients with established colorectal, breast, lung, prostatic, pancreatic, and ovarian carcinomas.Clinical correlation is required.The Carcinoembryonic antigen test was performed using the [employer] Mosc[employer] Un[employer]el DXI paramagnetic particle chemiluminescent immunoassay method. Results obtained with different assay methods or kits cannot be used interchangeably.Start: 33-83-5038XI of abdomen and pelvis without contrastDO Charles Bazzi Work Phone: Start: 08-28-1631Jbagg chest X-rayDO Charlesrocio Dhillonpacheco Work Phone: Start: 32-46-1806VQ Infusaport Insertion/Removal (Not Applicable)DO Charles Bazzi Work Phone: Start: 12-37-7182Fxn pelvis w/o & w/contrast material Tapan Corona MD Work Phone: Start: 34-55-7963Qheeogvguqmkb flx dx w/collj spec br/wa if pfrmdCcf ProviderStart: 34-15-8733ZS angiography of thoraxDO Charles Bazzi Work Phone: Start: 39-61-6691Oqxzldbqipatl flx dx w/collj spec br/wa if pfrmdKpedrito Singer MD Work Phone: Start: 78-44-6146Ppi pelvis w/o & w/contrast materialDel Hudson MD Work Phone: Start: 30-72-2036Gnxnpyai tomography of abdomen and pelvis with contrastDO Charles Bazzi Work Phone: Start: 37-94-6528WB of thorax with contrastDO Charles Bazzi Work Phone: Start: 67-51-8720UcqyfevtgzmLJ Charles Bazzi Work Phone: Start: 17-52-1822Raplvdkxs mammography of bilateral breastsDO Charles Dixie Work Phone: Start: 62-40-3075Qevdfp X-rayDO Charles Bazzi Work Phone: Start: 38-73-1341C-ray of both kneesDO Charles Bazzi Work Phone: Start: 14-14-3744CiubaddrorwFup Lenora JASVIR Work Phone: Start: 23-25-8034Dkbdn colonoscopyCharles R Dixie Work Phone: CholecystectomyCharles R Dixie Work Phone: Excision of melanomaBrerocio R Dixie Work Phone: H/O: colostomyColostomy statusCharles Bazzi DO Work Phone: H/O: ileostomyIleostomy statusDO Charles Bazzi Work Phone: NeuroplastyCharles R Dixie Work Phone: Operative procedure on ankleCharles R Dixie Work Phone: Plan of Treatment DateCare ActivityDetailAuthorStart: 29-03-7464QWH Vaccine (1 - 1-dose 75+ series)RSV Vaccine (1 - 1-dose 75+ series)[facility] 07[facility]2028 Screening for malignant neoplasm of colonHenry County Hospitaltart: 06-08-2028 Colorectal Cancer ScreeningColorectal Cancer ScreeningHenry County Hospitaltart: 54-59-9245Croyopdky for malignant neoplasm of colonHenry County Hospitaltart: 67-30-6667OjaywpttmttvrJnidxseqrlmltVvqeiwmli ClinicStart: 56-98-4587Fyuyrzdgil Cancer ScreeningColorectal Cancer ScreeningHenry County Hospitaltart: 03-16-2028 SIGMOIDOSCOPYSIGMOIDOSCOPYHenry County Hospitaltart: 23-73-0056Txxyfbcd Screening Diabetes ScreeningHenry County Hospitaltart: 87-20-5764Uqjiukah ScreeningDiabetes ScreeningHenry County Hospitaltart: 40-73-1064Rgivvnqr ScreeningDiabetes Screening [facility]: 60-80-1763Acarysjb ScreeningDiabetes ScreeningHenry [facility] Hospitalt[facility]: 22-54-1735Qnqwpzsm ScreeningDiabetes ScreeningTogus Va Medical Center Start: 75-57-0730Mwtkfxpv ScreeningDiabetes ScreeningHenry [facility] Hospitaltart: 16-53-7853Rnmvmntu ScreeningDiabetes ScreeningHenry [facility] Hospitalt[facility]: 09-04-2026 Diabetes ScreeningDiabetes ScreeningHenry [facility] Hospitalt[facility]: 16-48-2681Lxctekac ScreeningDiabetes ScreeningHenry [facility] Hospitalt[facility]: 35-85-4774Uvdxrguy Screening Diabetes ScreeningHenry [facility] Hospitalt[facility]: 82-22-5391Hvhhqghr ScreeningDiabetes ScreeningHenry [facility] Hospitaltart: 57-46-6561Vmxthfaq ScreeningDiabetes Screening [facility]: 33-88-9085Npfcxroe ScreeningDiabetes ScreeningHenry County Hospitaltart: 44-86-3954Legrpgciw for malignant neoplasm of colonColonoscopy [facility]: 09-42-3874RX Controlled (<130/80)BP Controlled (<130/80) [facility]: 08-23-2025 End: 19-59-6119Hobghzmzhcnrnbzm Ag [Mass/volume] in Serum or Plasma CARCINOEMBRYONIC ANTIGEN Lab Routine History of rectal cancer Expected: 08/23/2025 (Approximate), Expires: 11/22/2025[facility] ClinicComment on above: Expected: 08/23/2025 (Approximate), Expires: 11/22/2025Start: 08-23-2025 End: 43-48-2323UOJ W Auto Differential panel - BloodCOMPLETE BLOOD COUNT AND DIFFERENTIAL Lab Routine History of rectal cancer Expected: 08/23/2025 (Jeff roximate), Expires: 11/22/2025[facility] ClinicComment on above:Expected: 08/23/2025 (Approximate), Expires: 11/22/2025Start: 08-23-2025 End: 06-22-4131Uftopyepkcqrp metabolic 2000 panel - Serum or PlasmaCOMPREHENSIVE METABOLIC PANEL Lab Routine History of rectal cancer Expected: 08/23/2025 (Approximate), Expires: 11/22/2025[facility] ClinicComment on above:Expected: 08/23/2025 (Approximate), Expires: 11/22/2025Start: 08-23-2025 End: 01-79-0733JVQQ SEND OUT TST 1MISC SEND OUT TST 1 Lab Routine History of rectal cancer Expected: 08/23/2025 (Approximate), Expires: 11/22/2025[facility] Work Phone: Comment on above:Expected: 08/23/2025 (Approximate), Expires: 11/22/2025Start: 08-21-2025 End: 09-02-7517Gzsrkmy encounter udbmjyplb53/12/2026 12:00 PM EST Visit (SP) Office Hematology [address] [place] [address] Tapan Corona MD [address] [place] [address] F/U with Dr. Corona 08/23/25, labs 1 week prior HematologyComment on above:F/U with Dr. 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]Start: 04-16-2025 End: 30-24-4890Buczdwh encounter ceoaanyfu04/08/2025 9:45 AM EDT Office Visit Radiation Oncology [address] [place] [address] Del Hudson MD [address] [place] [address] [place] [address] Return in about 6 monthsRadiation OncologyComment on above: Return in about 6 monthsStart: 04-02-2025 End: 72-87-9191nkotvfzqfb33/24/2025 1:00 PM EDT OT/PT/Speech Visit Physical Therapy [address] [place] [address] Chapincito Anthony, PT [address] [place], [place] [id number] 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]Physical TherapyComment on above: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]Start: 03-13-2025 End: 12-47-5163Efsmmjm encounter wzbwixxgh78/04/2025 8:30 AM EDT Appointment Procedures [address] [place] [address] [place] [address] [place] [address] History of colon cancer [Z85.038]ProceduresComment on above:History of colon cancer [Z85.038]Start: 03-12-2025 End: 23-22-5008iagmbamjoz92/03/2025 2:45 PM EDT OT/PT/Speech Visit Physical Therapy [address] [place] [address] Chapincito Anthony, PT [address] [place], [place] [phone] 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]Physical TherapyComment on above: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]Start: 60-56-6008Lzznagqul vaccinationInfluenza Vaccine (#1)[facility]: 02-20-2025 End: 59-85-0994Mmydjjh encounter procedureColorectal SurgeryComment on above:Est Pt: 1 yr f/up, robotic LAR, DLI, surgery 08/25/23RECTAL CAStart: 02-19-2025 End: 96-48-5857uzjwkbsdgv91/13/2025 1:00 PM EDT OT/PT/Speech Visit Physical Therapy [address] [place] [address] Chapincito Anthony, PT [address] [place] [address] 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]Physical TherapyComment on above: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]Start: 02-13-2025 End: 87-91-1248Pnumqowovhoqgyns Ag [Mass/volume] in Serum or Plasma CARCINOEMBRYONIC ANTIGEN Lab Routine History of rectal cancer Rectal cancer (HCC) Expected: 02/13/2025 (Approximate), Expires: 05/15/2025[facility] Comment on above:Expected: 02/13/2025 (Approximate), Expires: 05/15/2025Start: 02-13-2025 End: 95-68-8553NYP W Auto Differential panel - BloodCOMPLETE BLOOD COUNT AND DIFFERENTIAL Lab Routine History of rectal cancer Rectal cancer (HCC) Expected: 02/13/2025 (Approximate), Expires: 05/15/2025[facility] Work Phone: Comment on above:Expected: 02/13/2025 (Approximate), Expires: 05/15/2025Start: 02-13-2025 End: 14-59-2881Truxhjurfuvpw metabolic 2000 panel - Serum or PlasmaCOMPREHENSIVE METABOLIC PANEL Lab Routine History of rectal cancer Rectal cancer (HCC) Expected: 02/13/2025 (Approximate), Expires: 05/15/2025[facility] ClinicComment on above:Expected: 02/13/2025 (Approximate), Expires: 05/15/2025Start: 02-10-2025 End: 22-03-4879Bykizzx encounter yibndbkej08/04/2025 1:15 PM EDT Appointment Radiology Pet CT [address] [place] [address] CT CAP W IV CONRadiology Pet CTComment on above:CT CAP W IV CONStart: 01-28-2025 End: 28-87-0544mgjxicdqwg52/22/2025 11:30 AM EDT OT/PT/Speech Visit Physical Therapy [address] [place] [address] Chapincito Anthony, PT [address] [place] [address] 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]Physical TherapyComment on above: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]Start: 12-31-2024 End: 44-63-0221Mbeyinb encounter vxlsbhlob25/24/2025 9:00 AM EDT Office Visit [facility] [address] [place] [address] Oscar Valle, [address] [place] [address] [facility]ICSStart: 12-24-2024 End: 48-92-7801lkutjixezx15/17/2025 11:30 AM EDT OT/PT/Speech Visit Physical Therapy [address] [place] [address] Chapincito Anthony, PT [address] [place], [place] [id number] 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 Orly ambrose messageColorectal SurgeryComment on above:Pt requesting to see Dr. Orly ambrose messageStart: 10-34-9285Bnnsc X-ray of right handXR hand RT min 3V*[facility]: 30-77-0912FQ Hand - right GE 3 ViewsMemorial Health Systemtart: 70-36-8230PN Controlled (<130/80)BP Controlled (<130/80)[facility]: 10-09-2024 End: 05-83-5139Bjluvtd encounter procedureRadiation OncologyComment on above: followupStart: 39-80-4592Shaak X-ray of right handXR hand RT min 3V*[facility]: 15-91-6650CD Hand - right GE 3 ViewsMemorial Health Systemtart: 25-67-8026AB Controlled (<130/80)BP Controlled (<130/80)[facility]: 74-79-5919QqtkheneeParkwood Hospital Start: 09-03-2024 End: 72-41-6154ZSOV SEND OUT TST 1MISC SEND OUT TST 1 Lab Routine History of rectal cancer Rectal cancer (HCC) Expected: 09/03/2024, Expires: 12/03/2024 [facility] CenterComment on above:Expected: 09/03/2024, Expires: 12/03/2024Start: 09-03-2024 End: 44-24-0042Mlotwx-up glvyccruy74/25/2025 1:45 PM EST Visit (SP) Office Hematology [address] [place] [address] Tapan Corona MD [address] [place] [address] Follow up in AugustHematologyComment on above:Follow up in art: 90-81-5120Irzmcws CultureAerobic CultureMemorial Health Systemtart: 63-13-7241Qfwzdjozs CultureAnaerobic [facility]: 06-50-0111Ctrhsyppdxn observation [Identifier] in Unspecified specimen by Gram stainMemorial Health Systemtart: 93-98-4883JcmhexvsdMemorial Health Systemtart: 81-97-7374MpaeygpryMemorial Health Systemtart: 20-75-3875BlkbovebvMemorial Health Systemtart: 27-43-9124E-ray of right middle fingerXR finger RT 3rd digitMemorial Health Systemtart: 12-33-1799DY Finger third - right [facility]: 08-14-2024 End: 09-94-8989Yrglsudamqmygkpe Ag [Mass/volume] in Serum or Plasma CARCINOEMBRYONIC ANTIGEN Lab Routine History of rectal cancer Expected: 08/14/2024 (Approximate), Expires: 11/13/2024[facility] ClinicComment on above: Expected: 08/14/2024 (Approximate), Expires: 11/13/2024Start: 08-14-2024 End: 45-96-1119UKR W Auto Differential panel - BloodCOMPLETE BLOOD COUNT AND DIFFERENTIAL Lab Routine History of rectal cancer Expected: 08/14/2024 (Jeff roximate), Expires: 11/13/2024[facility] Work Phone: Comment on above:Expected: 08/14/2024 (Approximate), Expires: 11/13/2024Start: 08-14-2024 End: 59-63-6385Vfxhcfisxiefy metabolic 2000 panel - Serum or PlasmaCOMPREHENSIVE METABOLIC PANEL Lab Routine History of rectal cancer Expected: 08/14/2024 (Approximate), Expires: 11/13/2024[facility] ClinicComment on above:Expected: 08/14/2024 (Approximate), Expires: 11/13/2024Start: 08-14-2024 End: 10-75-9077IBDB SEND OUT TST 1MISC SEND OUT TST 1 Lab Routine History of rectal cancer Expected: 08/14/2024 (Approximate), Expires: 11/13/2024[facility] ClinicComment on above:Expected: 08/14/2024 (Approximate), Expires: 11/13/2024 Start: 42-23-0444MI Controlled (<130/80)BP Controlled (<130/80)[facility] Start: 70-79-9381Gcgxyid Directive DiscussionAdvance Directive Discussion [facility]: 05-31-2024 End: 42-09-4680RgovoaygdMemorial Health Systemtart: 50-50-2777Jkxtp X-ray of right handXR hand RT min 3V*[facility]: 63-99-9164NP Hand - right GE 3 [facility]: 05-23-2024 Bacteria identified in Blood by CultureBlood CultureMemorial Health Systemtart: 16-11-2488UgdibhklqMemorial Health Systemtart: 05-22-2024 Bacteria identified in Blood by CultureBlood CultureMemorial Health Systemtart: 05-22-2024 End: 42-55-3135GnhogjoxtMemorial Health Systemtart: 05-08-2024 End: 92-50-8484Avwsvbkmwugoyeae Ag [Mass/volume] in Serum or Plasma CARCINOEMBRYONIC ANTIGEN Lab Routine History of rectal cancer Expected: 05/08/2024 (Approximate), Expires: 08/07/2024[facility] ClinicComment on above: Expected: 05/08/2024 (Approximate), Expires: 08/07/2024Start: 05-08-2024 End: 52-94-4006WJO W Auto Differential panel - BloodCOMPLETE BLOOD COUNT AND DIFFERENTIAL Lab Routine History of rectal cancer Expected: 05/08/2024 (Jeff roximate), Expires: 08/07/2024[facility] Work Phone: Comment on above:Expected: 05/08/2024 (Approximate), Expires: 08/07/2024Start: 05-08-2024 End: 21-60-4634Axvymgmlnredi metabolic 2000 panel - Serum or PlasmaCOMPREHENSIVE METABOLIC PANEL Lab Routine History of rectal cancer Expected: 05/08/2024 (Approximate), Expires: 08/07/2024[facility] ClinicComment on above:Expected: 05/08/2024 (Approximate), Expires: 08/07/2024Start: 05-08-2024 End: 56-79-0291USGF SEND OUT TST 1MISC SEND OUT TST 1 Lab Routine History of rectal cancer Expected: 05/08/2024 (Approximate), Expires: 08/07/2024[facility] ClinicComment on above:Expected: 05/08/2024 (Approximate), Expires: 08/07/2024 Start: 05-08-2024 End: 06-19-1818Rsjxvi-up nfbpsyfrw24/30/2024 1:45 PM EDT Visit (SP) Office Hematology [address] [place] [address] Tapan Corona MD [address] [facility] [place] [address] 3 month follow upHematologyComment on above:3 month follow up Start: 05-08-2024 End: 05-14-7502Visjarb encounter smbiihnht46/30/2024 1:30 PM EDT Results Only [facility] [address] [facility], [id number] [facility] Draw StationComment on above:labs virtua voorheesuStart: 04-10-2024 End: 04-17-5245Fkvfdnm encounter tvutisnyd33/02/2024 10:15 AM EDT Office Visit Radiation Oncology [address] [place] [address] Del Hudson MD [address] [place] [place] [address] followupRadiation OncologyComment on above:followupStart: 81-56-2111Shobl-19 Vaccine ( season)Covid-19 Vaccine ( season)[facility]: 21-22-0101Ednbj-19 Vaccine ( season) Covid-19 Vaccine ( season)[facility]: 72-77-5367Dhipwsjtg vaccinationHenry County Hospitaltart: 02-13-2024 End: 61-95-6930Kxeidtm encounter eamjflvmg65/06/2024 1:20 PM EDT Office Visit Colorectal Surgery [address] [place], [place] [phone] [place] [address] [place], [place] [phone] Est patient, 3 month follow up, , robotic LAR, DLI, surgery 08/25/23Colorectal SurgeryComment on above:Est patient, 3 month follow up, , robotic LAR, DLI, surgery 08/25/23Start: 02-06-2024 End: 80-68-7071Zbdupc-up pwpegnwwc32/30/2024 11:15 AM EDT Visit (SP) Office Hematology/Oncology [address] [place] [address] [place] [address] Tapan Corona MD [address] [place] [address] [place] [address] 3 month follow up SignateraHematology/OncologyComment on above:3 month follow up SignateraStart: 02-06-2024 End: 67-35-4628Vdringw encounter neufdevjv35/30/2024 11:00 AM EDT Office Visit [facility] [address] [place] [address] [place] [address] labsNoSt. Joseph's Hospital LaboratoryComment on above:labsStart: 01-31-2024 End: 51-46-0987Ngijrx-up encounterHematology/OncologyComment on above:3 month follow up SignateraStart: 01-26-2024 End: 51-84-5325Drfhyiq encounter kxzwavfsj34/19/2024 11:00 AM EDT Office Visit [facility] [address] [facility] [address] [place] [address] Marcos Rios MD [address] [facility] [place] [address] [facility] HospitalStart: 01-16-2024 End: 59-78-7172Hdjvxu-up encounterHematology/OncologyComment on above:3 month follow up SignateraStart: 01-09-2024 End: 39-97-1848Popuqwt encounter qarabbods08/02/2024 2:20 PM EDT Office Visit Colorectal Surgery [address] [place], [place] [id number] [place] [address] [place] [address] Est patient, 3 month follow up, , robotic LAR, DLI, surgery 08/25/23Colorectal SurgeryComment on above:Est patient, 3 month follow up, , robotic LAR, DLI, surgery 08/25/23Start: 01-09-2024 End: 43-05-1749Vcvmahpqrfjfdfpq Ag [Mass/volume] in Serum or PlasmaCEA BLD Lab Routine History of rectal cancer Expected: 01/09/2024 (Approximate), Expires: 04/09/2024[facility] Work Phone: Comment on above:Expected: 01/09/2024 (Approximate), Expires: 04/09/2024Start: 01-09-2024 End: 75-72-7797VAJ W Auto Differential panel - BloodCBC + DIFF Lab Routine History of rectal cancer Expected: 01/09/2024 (Approximate), Expires: 04/09/2024 [facility] Work Phone: Comment on above:Expected: 01/09/2024 (Approximate), Expires: 04/09/2024Start: 01-09-2024 End: 98-76-5867Nyxagfalpnsgc metabolic 2000 panel - Serum or PlasmaCOMP METABOLIC PANEL Lab Routine History of rectal cancer Expected: 01/09/2024 (Approximate), Expires: 04/09/2024[facility] Work Phone: Comment on above:Expected: 01/09/2024 (Approximate), Expires: 04/09/2024Start: 01-09-2024 End: 17-05-3780XGCV SEND OUT TST 1MISC SEND OUT TST 1 Lab Routine History of rectal cancer Expected: 01/09/2024 (Approximate), Expires: 04/09/2024[facility] Work Phone: Comment on above:Expected: 01/09/2024 (Approximate), Expires: 04/09/2024Start: 01-09-2024 End: 01-94-2645rwicdaiqcg78/02/2024 10:00 AM EDT Results Only [facility] [address] [place] [address] [place] [address] [facility] LaboratoryStart: 11-30-2023 End: 60-59-2496Duinvjc encounter ursncgmap85/23/2024 1:00 PM EDT Office Visit Colorectal Surgery [address] [facility] [place] [address] [place] [address] [place] [address] Est pt: 3 mo f/up, robotic LAR, DLI,Colorectal SurgeryComment on above:Est pt: 3 mo f/up, robotic LAR, DLI,Start: 11-24-2023 End: 08-19-5787Lwrmzqa encounter /17/2024 3:40 PM EDT Office Visit Colorectal Surgery [address] [place], [place] [phone] Brandie Salmeron APRN.ACCOUNT SERVICES ASSOCIATE [address], [facility] [address] [place], [place] [id number] PostOp: Ileostomy Closure,Colorectal SurgeryComment on above:PostOp: Ileostomy Closure,Start: 11-07-2023 End: 34-82-6817Yjkblqjcsehqvbtc Ag [Mass/volume] in Serum or PlasmaCEA BLD Lab Routine History of rectal cancer Expected: 11/07/2023 (Approximate), Expires: 02/06/2024[facility] Work Phone: Comment on above:Expected: 11/07/2023 (Approximate), Expires: 02/06/2024Start: 11-07-2023 End: 38-56-8655Mcttgaa encounter mxouicbzy15/30/2024 10:20 AM EDT Office Visit Colorectal Surgery [address] [place], [place] [id number] [place] [address] [place], [place] [phone] Est patient, hospital follow up, SBO m3Bjuphiqtnd Surgery Comment on above:Est patient, hospital follow up, SBO q9Rowet: 10-28-2023 [facility]: 39-79-0934Yensfkkglgufhc of prophylactic treatmentMemorial Health Systemtart: 43-87-6382NdscmvgdfMemorial Health Systemtart: 99-05-6961Xwlkjcbxia radiography of abdomenMemorial Health Systemtart: 52-21-6812Hunpyage to general [facility]: 65-38-5508Ovujbbbg admissionMemorial Health Systemtart: 06-89-3927QsbxpztzgMemorial Health Systemtart: 86-43-0855AZ angiography of thoraxCT angio chest PE protocolMemorial Health Systemtart: 75-09-1527AI ChestMemorial Health Systemtart: 65-37-8266Irarxwui tomography of abdomen and pelvis with contrastCT abdomen pelvis w [facility]: 74-64-0456IP Abdomen and Pelvis W contrast IVFOhioHealth Riverside Methodist Hospitaltart: 76-94-3226Xfobtrhd identified in Blood by CultureMemorial Health Systemtart: 10-25-2023 Bacteria identified in Urine by CultureMemorial Health Systemtart: 82-21-7671Prdsl culture for bacteria, including anaerobic screenBlood Culture [facility]: 10-10-2023 End: 35-64-7875OHAF SEND OUT TST 1CTrinity Health System Work Phone: Comment on above:Expected: 10/10/2023, Expires: 01/09/2024Start: 70-23-0845IsjtcfvwwMemorial Health Systemtart: 09-30-2023 Referral to general [facility]: 09-30-2023 Hospital admissionMemorial Health Systemtart: 68-42-1058ZD Abdomen and Pelvis WO contrastMemorial Health Systemtart: 87-06-6520TQ of abdomen and pelvis without contrastCT abdomen pelvis wo [facility] Hospitalt[facility]: 08-11-2023 End: 31-36-3364CQLQFZA BLOOD TYPEOhio State East Hospital Work Phone: Comment on above:Expected: 08/11/2023, Expires: 11/10/2023Start: 92-92-7517Kzbobxv Directive DiscussionAdvance Directive DiscussionHenry County Hospitaltart: 07-06-2023 End: 45-12-9140Fbupbwjdpzkztqde Ag [Mass/volume] in Serum or PlasmaCEA BLD Lab Routine Rectal cancer (HCC) Expected: 07/06/2023, Expires: 10/05/2023[facility] Work Phone: Comment on above:Expected: 07/06/2023, Expires: 10/05/2023Start: 07-06-2023 End: 05-57-4435AJY W Auto Differential panel - BloodCBC + DIFF Lab Routine Rectal cancer (HCC) Expected: 07/06/2023, Expires: 10/05/2023[facility] Work Phone: Comment on above:Expected: 07/06/2023, Expires: 10/05/2023Start: 07-06-2023 End: 35-41-8021Eqwvarazoscng metabolic 2000 panel - Serum or PlasmaCOMP METABOLIC PANEL Lab Routine Rectal cancer (HCC) Expected: 07/06/2023, Expires: 10/05/2023[facility] Work Phone: Comment on above:Expected: 07/06/2023, Expires: 10/05/2023Start: 07-06-2023 End: 63-69-1727Omnzdqpx [Mass/volume] in Serum or PlasmaFERRITIN BLD Lab Routine Rectal cancer (HCC) Expected: 07/06/2023, Expires: 06/14/2024[facility] Work Phone: Comment on above:Expected: 07/06/2023, Expires: 06/14/2024Start: 07-06-2023 End: 11-42-3577Htzc and Iron binding capacity panel - Serum or PlasmaIRON + TIBC Lab Routine Rectal cancer (HCC) Expected: 07/06/2023, Expires: 06/14/2024 [facility] Work Phone: Comment on above:Expected: 07/06/2023, Expires: 06/14/2024Start: 82-11-3953RkpbdupblMemorial Health Systemtart: 06-26-2023 [facility] 06-09[facility]2023 End: 43-45-8301Miawqorsmcywijgz Ag [Mass/volume] in Serum or PlasmaCEA BLD Lab Routine Rectal cancer (HCC) Expected: 06/09/2023 (Approximate), Expires: 09/08/2023[facility] Work Phone: Comment on above:Expected: 06/09/2023 (Approximate), Expires: 09/08/2023Start: 06-09-2023 End: 83-12-9463TDP W Auto Differential panel - BloodCBC + DIFF Lab Routine Rectal cancer (HCC) Expected: 06/09/2023 (Approximate), Expires: 09/08/2023 [facility] Work Phone: Comment on above:Expected: 06/09/2023 (Approximate), Expires: 09/08/2023Start: 06-09-2023 End: 06-03-5166Bjumesixdurdr metabolic 2000 panel - Serum or PlasmaCOMP METABOLIC PANEL Lab Routine Rectal cancer (HCC) Expected: 06/09/2023 (Approximate), Expires: 09/08/2023[facility] Work Phone: Comment on above:Expected: 06/09/2023 (Approximate), Expires: 09/08/2023Start: 06-09-2023 End: 25-00-9761Qov pelvis w/o & w/contrast materialMRI RECTUM WO/W IVCON Radiology Routine Rectal cancer (HCC) Expected: 06/09/2023 (Approximate), Expi res: 05/27/2024[facility] Work Phone: Comment on above:Expected: 06/09/2023 (Approximate), Expires: 05/27/2024Start: 04-28-2023 End: 91-81-8477JPB W Auto Differential panel - BloodCBC + DIFF Lab Routine Rectal cancer (HCC) Expected: 04/28/2023 (Approximate), Expires: 06/28/2023 [facility] Work Phone: Comment on above:Expected: 04/28/2023 (Approximate), Expires: 06/28/2023Start: 04-28-2023 End: 18-73-5743Tntpgmtdlaiai metabolic 2000 panel - Serum or PlasmaCOMP METABOLIC PANEL Lab Routine Rectal cancer (HCC) Expected: 04/28/2023 (Approximate), Expires: 06/28/2023[facility] Work Phone: Comment on above:Expected: 04/28/2023 (Approximate), Expires: 06/28/2023Start: 29-69-0445YybeidtpaMemorial Health Systemtart: 73-18-5691TdpkvmbzcMemorial Health Systemtart: 61-22-4750Ibozajod to oncologistMemorial Health Systemtart: 10-84-8102RkuzpmdqzMemorial Health Systemtart: 57-39-4289HvdfoniheMemorial Health Systemtart: 36-97-9834Nlphekrk to cardiologistMemorial Health Systemtart: 35-48-2523Otnzkwsf admissionMemorial Health Systemtart: 04-05-2023 [facility]: 04-05-2023 End: 26-86-9225LFA W Auto Differential panel - BloodCBC + DIFF Lab Routine Rectal cancer (HCC) Expected: 04/05/2023 (Approximate), Expires: 06/05/2023 [facility] Work Phone: Comment on above:Expected: 04/05/2023 (Approximate), Expires: 06/05/2023Start: 04-05-2023 End: 33-60-4940Bwvfafomrjbfb metabolic 2000 panel - Serum or PlasmaCOMP METABOLIC PANEL Lab Routine Rectal cancer (HCC) Expected: 04/05/2023 (Approximate), Expires: 06/05/2023[facility] Work Phone: Comment on above:Expected: 04/05/2023 (Approximate), Expires: 06/05/2023Start: 10-57-1159Yenlr-19 Vaccine ()Covid- 19 Vaccine ( season)[facility]: 45-38-4343Ctwnj-19 Vaccine ( season)Covid-19 Vaccine ( season)[facility]: 74-27-8856Kyiwmtkhv vaccinationHenry County Hospitaltart: 26-23-6653OyjbspgiiMemorial Health Systemtart: 19-79-1708JEIBPNQ DIRECTIVE DISCUSSIONADVANCE DIRECTIVE DISCUSSIONHenry County Hospitaltart: 87-74-9721EIKRZTCCMO ASSESSMENT DEPRESSION ASSESSMENTHenry County Hospitaltart: 56-02-0297VETBD-19 VACCINE (3 - Moderna series)COVID-19 VACCINE (3 - Moderna series)[facility]: 38-42-4729Pbjlm-19 Vaccine (3 - Moderna risk series)Covid-19 Vaccine (3 - Moderna risk series)[facility]: 47-88-5664Aeyjrrdiq for malignant neoplasm of breastHenry County Hospitaltart: 03-01-2019Medicare Annual Wellness VisitMedicare Annual Wellness VisitHenry County Hospitaltart: 71-00-8900YHDK DENSITY BONE DENSITYHenry County Hospitaltart: 91-37-4546Toqw Density ScreeningBone Density ScreeningHenry County Hospitaltart: 97-07-5777Dmjhpckbgjlo Vaccine: 65+ (2 - PCV) Pneumococcal Vaccine: 65+ (2 - PCV)[facility]: 45-53-9920Sxihhckyxulb Vaccine: 65+ Years (2 - PCV)Pneumococcal Vaccine: 65+ Years (2 - PCV)[facility]Start: 52-87-1753Yqlqpcbllhea Vaccine: 65+ Years (2 of 2 - PCV)Pneumococcal Vaccine: 65+ Years (2 of 2 - PCV)[facility]Start: 72-72-2815TPOQJPFKSBGL: 65+ (1 - PCV)PNEUMOCOCCAL: 65+ (1 - PCV)[facility] Start: 85-98-0479LRFUSTFYFEKK: 65+ (2 - PCV)PNEUMOCOCCAL: 65+ (2 - PCV)[facility]: 31-20-5923Bpiwyddkm for osteoporosisBone Density Screening [facility]: 78-70-7833Srsdutjbfmtc Vaccine: 50+ (2 of 2 - PCV) Pneumococcal Vaccine: 50+ (2 of 2 - PCV)[facility]: 04-09-2016 Pneumococcal Vaccine: 65+ (3 - PCV)Pneumococcal Vaccine: 65+ (3 - PCV)[facility]: 11-67-8988Dclohrhcfypz Vaccine: 65+ (3 of 3 - PCV)Pneumococcal Vaccine: 65+ (3 of 3 - PCV)[facility]: 78-74-3140Bblsfaitlpdn Vaccine: 65+ Years (2 of 2 - PCV)Pneumococcal Vaccine: 65+ Years (2 of 2 - PCV) [facility] HealthcareStart: 81-24-7587WYK Vaccine (1 - 1-dose 60+ series)RSV Vaccine (1 - 1-dose 60+ series)[facility]: 87-12-1800PGF Vaccine (1 - Risk 60-74 years 1-dose series)RSV Vaccine (1 - Risk 60-74 years 1-dose series) [facility]: 72-94-7687QSZKMOJA VACCINE (1 of 2)SHINGRIX VACCINE (1 of 2)[facility]: 30-21-9301SUMOPXMIV (FIT-DNA)COLOGUARD (FIT-DNA) [facility]: 21-33-7672QespwuzxgucKKKAEWEAJSVYfciucquj ClinicStart: 10-76-9781ZBMJESMQGK CANCER SCREENINGCOLORECTAL CANCER SCREENINGTogus Va Medical Center Start: 49-05-5561OC COLONOGRAPHYCT COLONOGRAPHYHenry [facility] Hospitaltart: 1998 DIABETES SCREENDIABETES SCREENHenry County Hospitaltart: 40-88-5826Leulvrmg ScreeningDiabetes ScreeningHenry County Hospitaltart: 99-47-2222GGAQR OCCULT BLOOD FECAL OCCULT BLOODHenry [facility] Hospitaltart: 37-16-2069Ojfvs 1996 panel - Serum or PlasmaLipid ScreeningHenry County Hospitaltart: 83-36-0962Lgywt panelLipid Screening [facility]: 57-59-3658UNATA SCREENLIPID SCREENHenry [facility] Hospitaltart: 75-84-1119Rokmggrui for malignant neoplasm of colonHenry [facility] Hospitaltart: 75-15-6649QUMMQJMXVQOVLWWBUBEWLHEAEVSgjfqbykb ClinicStart: 40-01-3121Jqwcyqanuap [facility]: 59-38-6719Sxwcsskzb for malignant neoplasm of breast [facility]: 73-81-1206ULdT/Tdap/Td Vaccines (1 - Tdap)DTaP/Tdap/Td Vaccines (1 - Tdap)[facility]: 98-31-1765Vatdr microalbumin profileHenry County Hospitaltart: 85-17-7578Pgthcz PCP Team Chronic Disease VisitAnnual PCP Team Chronic Disease VisitHenry [facility] Hospitaltart: 23-14-8634TM Controlled (<130/80)BP Controlled (<130/80)[facility]: 66-89-1577ZIMWJVXZC C SCREENINGHEPATITIS C SCREENINGHenry [facility] Hospitaltart: 48-97-2966Nrgtqjefw C screeningHepatitis C ScreeningHenry County Hospitaltart: 25-87-9878Ejrxhhabx for malignant neoplasm of cervixCervical Cancer Screening [facility]: 38-64-7312IHZUB-19 VACCINE (#1)COVID-19 VACCINE (#1) [facility]: 16-03-8259Etadj panelLipid PanelMercy Health [facility]: 02-15-1954Medicare Annual Wellness VisitMedicare Annual Wellness Visit (AWV)[facility]: 58-31-5538Sxiiuyvzt for malignant neoplasm of colonCleveland Clinic Hillcrest HospitalAnion gap measurementParkwood HospitalBacteria identified in Unspecified specimen by Aerobe cultureParkwood HospitalBacteria identified in Unspecified specimen by Anaerobe cultureParkwood Hospital Bacteria identified in Urine by CultureURINE CULTURE Microbiology Routine Dysuria 05/01/2023 11:19 AM [facility] Work Phone: Basophils [#/volume] in Blood by Automated count Park[facility] HospitalBasophils/100 leukocytes in Blood by Automated countParkwood HospitalCarcinoembryonic Ag [Mass/volume] in Serum or PlasmaCEA BLD Lab Routine History of rectal cancer 10/10/2023 11:40 AM EDT [facility] Work Phone: Carcinoembryonic Ag [Mass/volume] in Serum or Plasma CARCINOEMBRYONIC ANTIGEN Lab Routine History of rectal cancer Rectal cancer (HCC) 02/10/2025 12:42 PM EDTCleveland ClinicClosure enterostomy lg/small intestineCLOSURE ILEOSTOMY Attention to ileostomy (HCC) Partial small bowel obstruction (HCC)[facility] CenterComprehensive metabolic 2000 panel - Serum or PlasmaParkwood Hospital End: 53-25-0233BW Abdomen and Pelvis W contrast IVCT ABD/PEL W IVCON Radiology Routine History of rectal cancer Rectal cancer (HCC) 1 Occurrences starting 09/03/2024 until [facility]/2025[facility] ClinicComment on above:1 Occurrences starting 09/03/2024 until 10/03/2025T Abdomen and Pelvis W contrast IVCT ABD/PEL W IVCON Radiology Routine History of rectal cancer Rectal cancer (HCC) 02/10/2025 1[facility]: End: 06-90-2230ER Chest W contrast IVCT CHEST W IVCON Radiology Routine History of rectal cancer Rectal cancer (HCC) 1 Occurrences starting 09/03/2024 until 10/03/2025[facility] ClinicComment on above:1 Occurrences starting 09/03/2024 until 10/03/2025T Chest W contrast IVCT CHEST W IVCON Radiology Routine History of rectal cancer Rectal cancer (HCC) 02/10/2025 1:51 PM EDTCleveland ClinicCT SIM PLANNING RADIATION ONCOLOGYCT SIM PLANNING RADIATION ONCOLOGY Radiology Routine Rectal adenocarcinoma (HCC) Ordered: 03/23/2023[facility] Work Phone: Comment on above:Ordered: 03/23/2023 End: 21-41-2221BGR DIAGNOSTICEGD DIAGNOSTIC Endoscopy Routine Dyspepsia 1 [facility]ur[facility]06[facility]2023 [facility] Work Phone: Comment on above:1 Occurrences starting 04/06/2023 until 04/05/2024Eosinophils/100 leukocytes in Blood by Automated countParkwood HospitalErythrocyte distribution width [Ratio] by Automated count [facility] HospitalErythrocytes [#/volume] in BloodParkwood HospitalGlucose measurement estimated from glycated hemoglobin [facility] HospitalGlucose measurement estimated from glycated hemoglobinParkwood HospitalGuidance for removal of CV catheter with port from ChestIR PORTOCATH REMOVAL Radiology Routine Rectal adenocarcinoma (HCC) Ordered: 12/14/2023[facility] Work Phone: Comment on above:Ordered: 12/14/2023Hematocrit [Volume Fraction] of BloodParkwood HospitalHemoglobin [Mass/volume] in BloodParkwood HospitalHemoglobin A1c/Hemoglobin.total in Blood Parkwood HospitalIR PORTOCATH PLACEMENTIR PORTOCATH PLACEMENT Radiology KARYN Rectal cancer (HCC) Ordered: 04/05/2023[facility] Work Phone: Comment on above:Ordered: 04/05/2023Leukocytes [#/volume] corrected for nucleated erythrocytes in Blood by Automated coun [facility] HospitalLeukocytes [#/volume] in BloodParkwood HospitalLymphocytes [#/volume] in Blood by Automated count [facility] HospitalLymphocytes/100 leukocytes in Blood by Automated countParkwood HospitalMCH [Entitic mass] by Automated countParkwood HospitalMCHC [Mass/volume] by Automated count [facility] HospitalMCV [Entitic volume] by Automated count [facility] HospitalMonocytes [#/volume] in Blood by Automated countParkwood HospitalMonocytes/100 leukocytes in Blood by Automated countParkwood Hospital End: 58-09-4827Bzq pelvis w/o & w/contrast materialMRI RECTUM WO/W IVCON Radiology Routine Rectal adenocarcinoma (HCC) 1 Occurrences starting 03/07/2023 until 04/05/2024[facility] Work Phone: Comment on above:1 Occurrences starting 03/07/2023 until 04/05/2024Neutrophils [#/volume] in Blood by Automated countParkwood HospitalNeutrophils/100 leukocytes in Blood by Automated count [facility] HospitalNucleated erythrocytes [Presence] in Blood by Automated countParkwood HospitalPatient EducationCleveland Clinic Medina [facility]tr Work Phone: Patient referralCleveland Clinic Medina [facility] Work Phone: Platelet mean volume [Entitic volume] in Blood by Automated countParkwood HospitalPlatelets [#/volume] in Blood [facility] End: 25-90-1050Zwuzaexft colonoscopyCOLONOSCOPY SCREENING Endoscopy Routine Encounter for follow-up surveillance of rectal cancer 1 Occurrences starting 02/20/2025 until 02/20/2026[facility] Work Phone: Comment on above:1 Occurrences starting 02/20/2025 until 02/20/2026UA DIP B/OUA DIP B/O Lab Routine Dysuria Ordered: 05/01/2023 [facility] Work Phone: Comment on above:Ordered: 05/01/2023[facility] Immunizations Immunization DateImmunizationNotesCare KpwnoqsxAnmhplnm29-24-5125ixqujiypv, high dose seasonal, preservative-freeBrett Kuns DO Work Phone: [facility]02-01-2025influenza virus vaccine, unspecified formulationChapincito Anthony PT Work Phone: [facility] CenterAxunsc70-79-0737ahyoku vaccine recombinant Charles Kuns Other [facility] CenterRpeifu93-03-0525xlvemm vaccine recombinant Charles Kuns Other [facility] CenterEwtkqx58-09-3426MWRLC-73 Vaccine Moderna - Documentation Purposes OnlyRobert [employer] II Other [facility]03-23-2021COVID-19 mRNA Bivalent Booster (Moderna)DO Charels Kuns Work Phone: [facility]02-25-2021COVID-19 Vaccine Moderna - Documentation Purposes OnlyRobert [employer] Other [facility]10-29-2019influenza nasal, unspecified formulationLab/[place] Work Phone: [facility] CenterLkzbuc51-52-5903pzbmyjfle, injectable, quadrivalent, preservative freeDO Charles Kuns Work Phone: [facility]10-29-2019influenza, injectable, quadrivalent, contains preservativeRobert [place] II Other [facility] CenterPbkhns38-48-2670jyezhahmi virus vaccine, unspecified formulationColleen Solorio RN Work Phone: [facility] CenterTedbfd14-96-3190nlxjfzlxx, injectable, quadrivalent, preservative freeDO Charles Kuns Work Phone: [facility]10-10-2017influenza, injectable, quadrivalent, contains preservativeRobert [place] II Other [facility] CenterUyagnj78-75-4095cqpgrxodl, seasonal, injectableBrett R Kuns Work Phone: [facility] CenterComment on above:Series:04-09-2015 pneumococcal polysaccharide vaccine, 23 valentBrett R Kuns Work Phone: [facility] CenterComment on above:Series:04-09-2014 influenza, injectable, madin claire canine kidney, preservative freeCharles Bazzi Work Phone: [facility] CenterOdizva82-52-6896lsrrfrvwu, seasonal, injectable, preservative Heide Hudson MD Work Phone: [facility] CenterVxvrnd42-21-7755tjrwgomohiuh polysaccharide vaccine, 23 valentBrett R Kuns Work Phone: [facility] CenterLcavrf15-46-4841tnrooj vaccine, liveRobert [place] II Other [facility] CenterNvyzix37-77-2465nyzyyrfqneiy polysaccharide vaccine, 23 valentRobert [place] II Other [facility] CenterUtxddh98-53-5881iwcpeowux virus vaccine, unspecified formulationDO Charlesroico Bazzi Work Phone: [facility]01-04-2014influenza virus vaccine, split virus (incl. purified surface antigen)Caroline Juan Carlos BRIDGES Other [facility] CenterNEGATED: Highlighted row has not occurred!11-88-4292ccdbxmdft, seasonal, injectablePatient ObjectionRobjamin Rangel II Other [facility] Payers DatePayer CategoryPayerPolicy [id number] Health Insurance [id number] [id number] 2019Medicare [id number] [id number] 2..2.94533[id number] 2..1.365449.3.579.2.87659-63-1624Rasupoa3467795 2..1.406443.3.57[id number] 2..1.155055.3.579.[id number] 2.0.1.496521.3.57[id number] 2.0.1.494387.3.57[id number] 2.16.840.1.702344.3.579.2.47259-77-6954Fzjjwyv24251945 2.16.840.1.478647.3.579.2.5[id number] 2.16.840.1.321713.3.579.2.007009-15-9447Gaztcay9503425 2.16.840.1.550421.3.579.2.251946-11-9297Eaihxpk0832840 2.16.840.1.197492.3.579.2.765379-65-5112Upohokk2189823 2.16.840.1.897863.3.579.2.668113-42-3769Upcyfkf7590638 2.16.840.1.297247.3.579.[id number] 2.16.840.1.955617.3.579.2.145816-28-7107Nmxvxxq8490644 2.16.840.1.959755.3.579.2.191639-20-3146Oqqkzhu3046248 2.16.840.1.085849.3.579.2.987944-91-0023Kqfhkpv5876174 2.16.840.1.146904.3.579.2.091127-29-4470Lwrrjmb511356 2.16.840.1.484187.3.579.2.975539-60-7877Lzzwbhw209779 2.16.840.1.254674.3.579.2.099565-61-0537Yjzfvaq449164 2.16.840.1.296648.3.579.2.908565-80-0219Mmjgucl015170 2.16.840.1.759903.3.579.2.528776-21-9996Kpxqthm010462072 2..1.606842.3.579.[id number] 2..1.554336.3.579.2.06159-66-7057Cnvpqtw721303818 2..1.836240.3.579.2.70228-78-7749Gykhbej330702985 2..1.462291.3.579.2.61317-41-6480Pjgpdqu084477160 2..1.329100.3.579.2.20522-71-4686Jrtmost174966056 2..1.462636.3.579.2.196MedicareAnthem [facility] Dual [id number]-w82i-[id number] e5f28960-70m2-21i0-mc8t-663w8u4e9684Jeztyic90270968 2.0.1.353369.3.579.2.621Cjaexpo83398364 2.0.1.251807.3.579.2.531 Iwdmrmj08930620 2..1.488203.3.579.2.677Ewtabww30723803 2..1.921819.3.579.2.404Xgnywet66212243 2.0.1.119960.3.579.2.531 [id number] 2.840.1.536321.3.579.2.041Gsfsgnr98838563 2.840.1.531102.3.579.2.996Uvqjcbd65110764 2.16.840.1.131713.3.579.2.531 Vfyynbb76828471 2.16.840.1.293053.3.579.2.505Ctvllpr18331945 2.16.840.1.860722.3.579.2.253Whpfqxn94316086 2..840.1.790859.3.579.2.531 Social History DateTypeDetailFacilityStart: 03-08-2023 End: 75-78-6715Gaz Assigned At BirthHenry [facility] Hospitaltart: 06-02-2021 End: 35-42-1984Epbmymh smoking status NHISNever smoked tobacco (finding) [facility]: 49-29-7673Wwe Assigned At BirthFemale [facility]: 03-08-2023 End: 91-76-3846Ishpwbvscf alcohol useOccasional alcohol useTogus Va Medical Center Tobacco smoking status NHISTobacco smoking consumption unknownTogus Va Medical Center Start: 25-34-7987Yjw Assigned At BirthNot on fileTogus Va Medical CenterHistory of tobacco usePassive smokerHenry County Hospitaltart: 01-17-2023 End: 32-86-8520Qvlsuqa use and exposureSmokeless tobacco non-userHenry County Hospitaltart: 03-08-2023 End: 37-11-5863Olaabby intakeCurrent drinker of alcohol (finding)[facility]: 66-17-2617Lgxjopf CommentsociallyClevelnovant health matthews medical [facility] ClinicStart: 06-10-2012 End: 77-82-5964Evgbj Depression Screening Kdkswaaqul9Rgxmabbsy ClinicStart: 41-88-6159Ygsawov Comment1 drink weekly if thatHenry County Hospitaltart: 04-18-2023 Alcohol Commentsocially a couple times per monthHenry County Hospitaltart: 44-88-6841Idtsyqs CommentoccasionalUniSelect Medical [facility] [place] Work Phone: Start: 07-15-2023 End: 33-88-5635Uevquogk to SARS-CoV-2 (event)Not sureCleveland Clinic Hillcrest HospitalStart: 86-57-2244Wuownjv Comment2 times a month if [facility] (I/We) worried whether (my/our) food would run out before (I/we) got money to buy more.DK or RefusedHenry County Hospitaltart: 09-22-2023 End: 81-98-6289Dyerjuv intakeEx-drinker (finding)[facility] CenterHas the [employer], gas, oil, or water company threatened to shut off services in your home in past 12MoNoClcincinnati shriners hospital Clinic(I/We) worried whether (my/our) food would run out before (I/we) got money to buy more.Never trueHenry County Hospitaltart: 05-22-2024 End: 91-11-9145SiuEqueom (finding)[facility] HospitalHow often to you have a drink containing alcohol?2-4 times a monthNOMS HealthcareHow many standard drinks containing alcohol do you have on a typical day?1 or 2NOMS HealthcareHow often do you have 6 or more drinks on 1 occasion?NeverNONV HealthcareStart: 40-87-0066Mclwgce Comment2-4 times/month. Coffee: 2-3 cups per dayNONV Healthcare Medical Equipment Procedure CodeEquipment CodeEquipment Original TextEquipment IdentifierDates Insertion of central venous catheter (CVC) with subcutaneous port for chemotherapyVascular port/catheter()[id number] FDA Start: 12-83-7096Uhkzde of distal interphalangeal joint of fingerOrthopaedic bone screw, non-bioabsorbable, non-sterile()[id number] FDAStart: 25-27-5546BFJC OBTURATOR SYSTEMFDAStart: 80-07-6717ZAAU OBTURATOR SYSTEMFDA Start: 66-74-5981ETHP OBTURATOR SYSTEMFDAStart: 75-54-5836ROKO OBTURATOR SYSTEM FDAStart: 71-62-7639LKZI OBTURATOR SYSTEMFDAStart: 04-70-8917OCLQ OBTURATOR SYSTEMFDAStart: 25-90-1590VISF OBTURATOR SYSTEMFDAStart: 51-67-3969FAKG OBTURATOR SYSTEMFDAStart: 35-78-9992RCZA OBTURATOR SYSTEMFDAStart: 11-09-2018 TVTO OBTURATOR SYSTEMFDAStart: 19-58-5799BWKO OBTURATOR SYSTEMFDAStart: 66-14-5084LFFX OBTURATOR SYSTEMFDAStart: 19-07-8327CRYU OBTURATOR SYSTEMFDA Start: 06-65-5928UGUF OBTURATOR SYSTEMFDAStart: 34-87-5146JKZK OBTURATOR SYSTEM FDAStart: 32-44-3722ZPOU OBTURATOR SYSTEMFDAStart: 44-58-1675RTUM OBTURATOR SYSTEMFDAStart: 35-16-6751KQWK OBTURATOR SYSTEMFDAStart: 53-71-1082IHXM OBTURATOR SYSTEMFDAStart: 64-06-9568XNYG OBTURATOR SYSTEMFDAStart: 11-09-2018 TVTO OBTURATOR SYSTEMFDAStart: 90-32-2366NXYF OBTURATOR SYSTEMFDAStart: 11-10-9571HVBU OBTURATOR SYSTEMFDAStart: 07-45-4466NMFM OBTURATOR SYSTEMFDA Start: 83-61-2212WOGG OBTURATOR SYSTEMFDAStart: 42-81-3216LMEO OBTURATOR SYSTEM FDAStart: 83-69-6117YFQV OBTURATOR SYSTEMFDAStart: 11-09-2018 Goals DatePatient GoalDesired Activity/StatePersonal health goal Functional Status DwzdQrwnhohdvfNcpuarMkhsznkk89-66-4662Nqygkmbwfc statusPatient at Baseline [facility] Work Phone: [phone]rrkhvuv statusPatient at Baseline [facility] Work Phone: [phone]z you deaf, or do you have serious difficulty hearingNo 09/04/2023 3:54 PM Rebecca Cano RN NoCcincinnati va medical centerand Wtjbtx30-49-2893Thk you blind, or do you have serious difficulty seeing, even when wearing glassesNo 09/04/2023 3:54 PM Rebecca Cano RN NoCcincinnati va medical centersalvador Uozlqe45-82-0390Jq you have serious difficulty walking or climbing stairsNo 09/04/2023 3:54 PM Rebecca Cano RN [facility]02-26-2024Do you have difficulty dressing or bathingNo 09/04/2023 3:54 PM Rebecca Cano RN [facility] CenterVzyamt82-29-4395Dhzhmxf of a physical, mental, or emotional condition, do you have difficulty doing errands alone such as visiting a physician's office or shoppingNo 09/04/2023 3:54 PM Rebecca Cano RN [facility] HospitalIbfojz10-98-5654Rihvtvjvkq statusPatient at [facility] Work Phone: Mental Status FibjKjfzvgvjevZnvajuXzzjzkcf87-38-3019Qtokvikmv functionCognitive Status [facility] at [facility] Work Phone: [phone] functionCognitive Status [facility] at [facility] Work Phone: [phone]kgi of a physical, mental, or emotional condition, do you have serious difficulty concentrating, remembering, or making decisionsNo 09/04/2023 3:54 PM Rebecca Cano RN [facility] 10-07-0112Qsanekvoi functionCognitive Status [facility] at [facility] Work Phone: Clinical Notes 02-11-2022 to 05-15-2025 Note Date & [id number] Evaluation note* Author Kalina Cullen [facility] HospitalAuthoredNovember 2024 10:21amSooner if needed, the ER if concerns,The above note written by Kalina Cullen LPN acting as human recorder, note dictated by Dr. Charles Bazzi [facility] [facility] Work Phone: 1(300) 710-129409-04-2025 Hospital Discharge instructions* Discharge Instr - Other [...] call immediately for advice [facility] History and physical note * Bonny Duque MD - 03/13/2025 7:44 AM EDT ENDOSCOPY HISTORY AND PHYSICAL EXAM Evan Gill [id number] Subjective HPI: This is a 69 year [...] MD Date of Service: March 13, 2025 [facility] Work Phone: 1(234) 200-515309-04-2025 History and physical note* Bonny Duque MD - 03/13/2025 7:44 AM EDT ENDOSCOPY HISTORY AND PHYSICAL EXAM Evan Gill [id number] Subjective HPI: This is a 69 year [...] Service: March 13, 2025 documented in this encounterT[facility]08-14-2025 Instructions* Patient Instructions* Camilla Cortés LPN - 02/20/2025 2:20 PM EDT F/U with Dr. Corona 08/23/25, labs 1 week prior documented in this encounterT[facility]08-14-2025 NoteHNO ID: [id number] Author: TAPAN CORONA MD Service: ? Author Type: Physician Type: Progress Notes Filed: 02/20/2025 14:27 Note Text: PATIENT NAME: Evan Gill CLINIC NO.: [id number] ATTENDING PHYSICIAN: Tapan Corona MD DATE OF [...] Final Hematocrit Date Value (more content not included)...[facility]08-14-2025 History of Present illness Narrative* Tapan Corona MD - 02/20/2025 2:12 PM EDT Images from the original note were not included. PATIENT NAME: Evan Gill CLINIC NO.: [id number] ATTENDING PHYSICIAN: Tapan Corona MD DATE OF [...] Range Status 02/10/2025 8.4 % Final Abs Owen Date Value Ref Range Status 02/10/2025 0.51 [...] do not hesitate to contact me at [phone]. Tapan Corona MD Hematology/Medical Oncology [facility] spent a total of 30 minutes on the date of the service which included preparing to see the patient, hmpl-bh-smhx patient care, completing clinical documentation, obtaining and/or reviewing separately obtained history, performing a medically appropriate examination, counseling and educating the pat ient/family/caregiver, and ordering medications, tests, or procedures. CC: documented in this encounterT[facility]08-14-2025 NoteHNO ID: [id number] Author: CIERRA LINDQUIST RN Service: ? Author [...] number for further concerns and for questions. [phone] TIME SPENT: 15 minutes Electronically Signed By: SHANDRA Peterson, RN DDSI Specialty Care CoordinatorVan [facility]ert [facility]08-14-2025 History of Present illness Narrative* Cierra Lindquist, RN - 02/20/2025 1:47 PM EDT AMBULATORY [...] number for further concerns and for questions. [phone] TIME SPENT: 15 minutes Electronically Signed By: SHANDRA Peterson, RN DDSI Specialty [place]der documented in this encounterT[facility]08-14-2025 History of Present illness Narrative* Laisha Singer [...] which included preparing to see the patient, pfzx-rv-nmng patient care, completing clinical documentation, obtaining and/or reviewing separately obtained history, performing a medically appropriate examination, counseling and educating the pat ient/family/caregiver, ordering medications, tests, or procedures, communicating with other HCPs (not separately reported), independently interpreting results (not separately reported), communicatingresults to the patient/family/caregiver, and care coordination (not separately reported). Laisha Singer MD Colorectal Surgery ' documented in this encounterT[facility]08-14-2025 NoteHNO ID: [id number] Author: LAISHA SINGER MD Service: ? Author [...] discussed Evan Gill's treatm (more content not included)...[facility]08-14-[facility] NoteEducation ([facility]) EVAN GILL ([id number]) 1955 F Date Time Provider Department 02/20/[address] [facility] Reason for Visit: history of colon cancer [Other] During your visit today, we recorded the following information about you: Allergies As of Date: 02/20/2025 (No Known Allergies) Date Reviewed: 02/20/2025 Reviewed by: Maurene Webster OCCA - Fully Assessed Prescriptions as [...] daily. Encounter Status:Closed by CIERRA LINDQUIST on 02/20/25[facility] 02-19-2025 NoteHNO ID: [id number] Author: CHAPINCITO ANTHONY PT Service: ? Author [...] Bowel Movement Frequency: 2-3 Bowel Movement Consistency ([place]) : 4: Like a sausage or snake, [...] and assessment of patient's response to intervention. Self-Nursing Home Management: 1: ways to breathe into the [...] Session Stop Time : [address] [facility]08-13-2025 History of Present illness Narrative* Chapincito Anthony, [...] Bowel Movement Frequency: 2-3 Bowel Movement Consistency ([place]) : 4: Like a sausage or snake, [...] and assessment of patient's response to intervention. Self-Nursing Home Management: 1: ways to breathe into the [...] [address] PT documented in this encounterT[facility]08-04-2025 History of Present illness Narrative* Jen Watson [...] 10, 2025 TIME: 1:02 PM * Kamila Maldonado RT(R) - 02/10/2025 1:15 PM EDT Radiology [...] PATIENT PRESENTS WITH AN IMPLANTABLE OR ATTACHED REPLANTING MACHINE CREW: No RADIOLOGY DEPARTMENT: CT; Exam(s) Completed: Chest Abdomen Pelvis PERIPHERAL IV DATA: Site assessment: Clean,Dry and Intact, Site disposition Discontinued SIGNED BY: RT Jovanni(Raphael) February 10, 2025 1:35 PM documented in this encounterT[facility]08-04-2025 NoteHNO ID: [id number] Author: KAMILA MALDONADO RT(R) Service: ? Author [...] PATIENT PRESENTS WITH AN IMPLANTABLE OR ATTACHED REPLANTING MACHINE CREW: No RADIOLOGY DEPARTMENT: CT; Exam(s) Completed: Chest Abdomen Pelvis PERIPHERAL IV DATA: Site assessment: Clean,Dry and Intact, Site disposition Discontinued SIGNED BY: Kamila Maldonado, RT(R) February 10, 2025 1:35 [facility]08-04-2025 NoteHNO ID: [id number] Author: JEN WATSON RN Service: ? Author [...] Gill DATE: February 10, 2025 TIME: 1:02 [facility]07-23-2025 NoteHNO ID: [id number] Author: CHAPINCITO ANTHONY PT Service: ? Author [...] Planned: 6 Planned Treatment Interventions: Therapeutic exercise (41842), Neuromuscular re-education (00286), Manual therapy (44926), Self-fci management (43391), Patient/Family/Caregiver Education PLAN FOR NEXT VISIT: progress [...] night) : urine 2-3 (more content not included)...[facility]07-23-2025 History of Present illness Narrative* Chapincito Anthony, PT - 01/29/2025 12:21 PM EDT Episode [...] Planned: 6 Planned Treatment Interventions: Therapeutic exercise (03691), Neuromuscular re- education (61887), Manual therapy (45898), Self-fci management (20329), Patient/Family/Caregiver Education PLAN FOR NEXT VISIT: progress [...] Interventions: Therapeutic Exercise, Manual Therapy, Neuromuscular Re-Education, Self-Nursing Home Management Evaluation Therapeutic Exercise: 1: SL breathing [...] and assessment of patient's response to intervention. Self-Nursing Home Management: 1: POC; anatomy and connection to [...] [address] Anthony PT documented in this encounterT[facility]06-27-2025 Telephone encounter Note * Telephone Encounter - [...] anytime if in need of further discussion. [facility] Miscellaneous Notes* Telephone Encounter - Princess Mckeon [...] need of further discussion. documented in this encounterT[facility]04-29-2025 NoteHNO ID: [id number] Author: ALE MARIE APRN.CNP Service: ? Author Type: Nurse Practitioner Type: Progress Notes Filed: 11/05/2024 12:50 Note Text: SENSITIVE EXAMINATION CONSENT: The sensitive examination was discussed with the Patient or Patient's Authorized Wooling Machine Operator. As applicable, any other physician, advance practice provider, medical student, or other health professional student that will be observing or involved in the sensitive examination for educational or training purposes was discussed with the Patient or Authorized Wooling Machine Operator. The Patient or Authorized Wooling Machine Operator has agreed to proceed with the sensitive examination. [facility]04-29-2025 History of Present illness Narrative* Ale Marie APRN.CNP - 11/05/2024 12:47 PM EDT SENSITIVE EXAMINATION CONSENT: The sensitive examination was discussed with the Patient or Patient's Authorized Wooling Machine Operator. Asapplicable, any other physician, advance practice provider, medical student, or other health professional student that will be observing or involved in the sensitive examination for educational or training purposes was discussed with the Patient or Authorized Wooling Machine Operator. The Patient or Authorized Wooling Machine Operator has agreed to proceed with the sensitive examination. documented in this encounterTogus [facility] Center04-24-2025 NoteHNO ID: [id number] Author: CIERRA LINDQUIST RN Service: ? Author [...] REVIEWED: -Anorectal Manometry- call office to schedule [phone] -pelvic floor physical therapy - handout with phone numbers provided to schedule at location of choice -[employer] information Patient acknowledges and understands. They have contact phone number for further concerns and for questions. Electronically Signed By: SHANDRA Peterson, RN DDSI Specialty Care CoordinatorVan Wert [facility]04-24-2025 NoteHNO ID: [id number] Author: LAISHA SINGER MD Service: ? Author [...] tattooed. View External Procedures - Colonoscopy [ID [id number]] Pathology: Ascending colon polyp: tubular adenoma Scan on 10/16/2024 1:47 PM by Provider, External, PADesireeC: Pathology PAST MEDICAL HISTORY Diagnosis Date Constipation [...] Imaging: CT Abdomen, CT (more content not included)...[facility]04-24-[facility]Education [facility] EVAN GILL ([id number]) 1955 F Date Time Provider Department 10/31/[address] [facility] Reason for Visit: Fecal Incontinence [1403] During your visit today, we recorded the following information about you: Allergies As of Date: 10/31/2024 (No Known Allergies) Date Reviewed: 10/31/2024 Reviewed by: Laisah Singer MD - Fully Assessed Prescriptions as [...] daily. Encounter Status:Closed by CIERRA LINDQUIST on 10/31/24[facility] 10-09-2024 History of Present illness Narrative* [...] by: Del Hudson MD cc: Charles Bazzi, [address] [phone] No referring provider defined for this encounter. documented in this encounterT[facility]us [facility] Center04-02-2025 NoteHNO ID: [id number] Author: Del HUDSON MD Service: ? Author [...] Negative for pain, histo (more content not included)...[facility]03-12-2025 Procedure [place] [id number] Colonoscopy Procedure Report Signed Patient: vEan Gill MR#: [id number] : 1955 Acct:[id number] Age/Sex: 69 / F Adm Date: Loc: Room: Type: [facility] Attending Dr: Tomi Greene MD Copies to: Charles Bazzi,DO Tomi Greene MD~ Colonoscopy Date/Provider 09/18/2024 Tomi Greene MD [...] was slowly withdrawnwith the findings as below. Constantia bowel prep score was good. Findings: Cecum: [...] MD 09/18/24 1118 Signed By: 09/18/24 1121 [facility]03-12-2025 [place] [address] Gastroenterology H&P Signed Patient: Evan Gill MR#: [id number] : 1955 Acct:[id number] Age/Sex: 69 / F Adm Date: 5 Loc: Room: Type: [facility] Attending Dr: Tomi Greene MD [...] Tomi Greene MD 09/18/24 1041 Signed By: 09/18/24 1043 [facility]03-03-2025 Evaluation note* Author Adia Cho [facility] HospitalAuthoredMar 2024 12:04pmThe above note written by Adia Cho LPN, acting as human recorder, note dictated by Dr. Charles Bazzi. [facility] Work Phone: 1(396) 483-236602-25-2025 Instructions* Patient Instructions* Rody Colmenares LPN - 09/03/2024 2:[address] scans and labs 1 week prior to Office visit with DR Edmondson on 02/20/25 documented in this encounterTogus [facility] Center02-25-2025 NoteHNO ID: [id number] Author: TAPAN CORONA MD Service: ? Author Type: Physician Type: Progress Notes Filed: 09/03/2024 14:15 Note Text: PATIENT NAME: Evan Gill CLINIC NO.: [id number] ATTENDING PHYSICIAN: Tapan Corona MD DATE OF [...] Ref Range Status 08/10 (more content not included)...[facility]02-25-2025 History of Present illness Narrative* Tapan Corona MD - 09/03/2024 1:49 PM EST Images from the original note were not included. PATIENT NAME: Evan Gill CLINIC NO.: [id number] ATTENDING PHYSICIAN: Tapan Croona MD DATE OF SERVICE: September 03, 2024 [...] Range Status 08/19/2024 7.8 % Final Abs Owen Date Value Ref Range Status 08/19/2024 0.51 [...] do not hesitate to contact me at [phone]. Tapan Corona MD Hematology/Medical Oncology [facility] spent a total of 30 minutes on the date of the service which included preparing to see the patient, grvu-rd-aupx patient care, completing clinical documentation, obtaining and/or reviewing separately obtained history, performing a medically appropriate examination, counseling and educating the pat ient/family/caregiver, and ordering medications, tests, or procedures. CC: documented in this encounterTogus [facility]02-18-2025 Telephone encounter Note * Telephone Encounter - Lenin Krause RN - 08/27/2024 11:12 AM EST Patient calling Requesting to speak to Gagandeep sage Did not get the message/states message did not record Call CELL Leave Detailed messages [facility]02-18-2025 Miscellaneous Notes* Telephone Encounter - Lenin Krause RN - 08/27/2024 11:12 AM EST Patient calling Requesting to speak to Gagandeep sage Did not get the message/states message did not record Call CELL Leave Detailed messages * Telephone Encounter - Gagandeep Ward RN - 08/27/2024 10:43 AM EST Left message for patient regarding lab results. Follow up OV Dr Corona 09/03/24 as scheduled. Sent to scanning into ThetaRay documented in this encounterTogus [facility] Center02-18-2025 Telephone encounter Note * Telephone Encounter - Gagandeep Ward RN - 08/27/2024 10:43 AM EST Left message for patient regarding lab results. Follow up OV Dr Corona 09/03/24 as scheduled. Sent to scanning into epic [facility]12-03[facility] Evaluation note* Diagnosis Onset Date [...] 2:43pm Other specified postprocedural statesacuteFebruary 2024 2:43pm [facility] Work Phone: 1(937) 507-402812-03-2024 Evaluation note* Diagnosis Onset Date Resolution Status Admit Date Infected finger acuteDecember 2023 10:34amCellulitis of right middle fingerinactiveDecember 2023 10:34amOther specified postprocedural statesnoneactiveDecember 2023 10:34amAnxiety and depressionacuteDecember 2023 12:35pmColorectal canceracuteDecember 2023 12:35pmHyperlipidemiaacuteDecember 2023 12:35pmHypertensionacuteDecember 2023 12:35pmInfected fingeracuteDecember 2023 12:35pmInfected fingeracuteDecember 2023 8:10amCellulitis of right middle fingerinactiveDecember 2023 8:10amOther specified postprocedural statesnoneactiveDecember 2023 8:10amInfected fingeracute July 17, 2024 8:19amOther specified postprocedural statesnoneactiveJanuary 2024 8:19amInfected fingeracuteFebruary 2024 12:45pmOther specified postprocedural statesnoneactiveFebruary 2024 12:45pmArthritis of finger acuteFebruary 2024 2:43pmInfected fingeracuteFebruary 2024 2:43pm Other specified postprocedural statesacuteFebruary 2024 2:43pmAnxiety and depressionacuteMarch 2024 9:54amColorectal canceracuteMarch 2024 9:54amHyperlipidemiaacuteMarch 2024 9:54amInfected fingeracuteMarch 2024 9:54am [facility] Work Phone: 1(530) 616-393511-21-2024 Evaluation note* Diagnosis Onset Date Resolution Status [...] 2024 8:19amOther specified postprocedural statesnoneactiveJanuary 2024 8:19am [facility] Work Phone: 1(435) 959-807311-21-2024 Evaluation note* Diagnosis Onset Date Resolution Status [...] specified postprocedural statesnoneactive August 14, 2024 12:45pm [facility] Work Phone: 1(165) 534-587910-30-2024 Instructions* Patient Instructions* Colleen Arceo LPN - 05/08/2024 2:04 PM EDT Follow up with Dr. Corona in August prior Signatera prior to follow up documented in this encounterTogus [facility] Center10-30-2024 NoteHNO ID: [id number] Author: TAPAN CORONA MD Service: ? Author Type: Physician Type: Progress Notes Filed: 05/08/2024 14:21 Note Text: PATIENT NAME: Evan Romo [facility] NO.: [id number] ATTENDING PHYSICIAN: Tapan Corona MD DATE OF [...] Ref Range Status 02/06/20 (more content not included)...[facility]10-30-2024 History of Present illness Narrative* Tapan Corona MD - 05/08/2024 1:56 PM EDT Images from the original note were not included. PATIENT NAME: Evan Gill CLINIC NO.: [id number] ATTENDING PHYSICIAN: Tapan Corona MD DATE OF [...] Range Status 02/06/2024 6.6 % Final Abs Owen Date Value Ref Range Status 02/06/2024 0.29 [...] do not hesitate to contact me at [phone]. Tapan Corona MD Hematology/Medical Oncology [facility] spent a total of 30 minutes on the date of the service which included preparing to see the patient, rrku-wh-aduk patient care, completing clinical documentation, obtaining and/or reviewing separately obtained history, performing a medically appropriate examination, counseling and educating the pat ient/family/caregiver, and ordering medications, tests, or procedures. CC: documented in this encounterTogus [facility] Center10-02-2024 History of Present illness Narrative* [...] 3:24 PM Block for additional Biomarkers/Molecular studies [facility] No evidence of residual invasive adenocarcinoma [...] Del Hudson MD cc: Charles Bazzi, DO [address] [place] [phone] No referring provider defined for this encounter. documented in this encounterTogus [facility] Center08-14-2024 Telephone encounter Note * Telephone Encounter - Kari Carrillo RN - 02/21/2024 11:23 AM EDT Pt notified of negative signatera result and denies questions, needs or concerns at this time. Kari Carrillo RN [facility]08-14-2024 Miscellaneous Notes* Telephone Encounter - Kari Carrillo RN - 02/21/2024 11:23 AM EDT Pt notified of negative signatera result and denies questions, needs or concerns at this time. Kari Carrillo RN documented in this encounterTogus Va Medical Center07-30-2024 Telephone encounter Note * Telephone Encounter - Amalia Martin - 02/06/2024 2:18 PM EDT Called patient and scheduled labs, signatera and 3 month follow up in [place] with [facility] for 05/08 [facility]07-30[facility] Miscellaneous Notes* Telephone Encounter - Amalia Martin - 02/06/2024 2:18 PM EDT Called patient and scheduled labs, signatera and [facility] [place] [facility] * Telephone Encounter - Jessika Platt - 02/06/2024 1:45 PM EDT Images from the original note were not included. documented in this encounterTogus [facility] Center07-30-2024 Telephone encounter Note * Telephone Encounter - Jessika Platt - 02/06/2024 1:45 PM EDT Images from the original note were not included. [facility] History of Present illness Narrative* Tapan Corona MD - 02/06/2024 11:34 AM EDT Images from the original note were not included. PATIENT NAME: Evan Gill CLINIC NO.: [id number] ATTENDING PHYSICIAN: Tapan Corona MD DATE OF [...] Range Status 02/06/2024 6.6 % Final Abs Owen Date Value Ref Range Status 02/06/2024 0.29 [...] do not hesitate to contact me at [phone]. Taapn Corona MD Hematology/Medical Oncology [facility] I spent a total of 30 minutes on the date of the service which included preparing to see the patient, bhhv-ja-xxxr patient care, completing clinical documentation, obtaining and/or reviewing separately obtained history, performing a medically appropriate examination, counseling and educating the pat ient/family/caregiver, and ordering medications, tests, or procedures. CC: documented in this encounterTogus [facility] Center07-09-2024 Telephone encounter Note * Telephone [...] office back with any questions or concerns. [facility]07-[facility] Miscellaneous Notes* Telephone Encounter - [...] reversal with Dr. Sullivan November 05. Contact# [phone] documented in this encounterTogus Va Medical Center07-09-2024 Telephone encounter Note * Telephone Encounter - Amber Dhaliwal - 01/16/2024 11:30 AM EDT Patient called in and has a small opening at her surgical site. Patient had a reversal with Dr. Sullivan November 05. Contact# [phone] [facility] History of Present illness Narrative* [...] stenosis, but able to pass a digit. [employer] present: Yes, KAYA Sykesgalvanizer Assessment and Plan: Evan Gill is a [...] which included preparing to see the patient, yksy-sg-iyhd patient care, completing clinical documentation, obtaining and/or reviewing separately obtained history, performing a medically appropriate examination, counseling and educating the pat ient/family/caregiver, and care coordination (not separately reported). Laisha Singer MD Colorectal Surgery documented in this encounterTogus [facility] Center07-01-2024 Telephone encounter Note * Telephone Encounter - Colleen Solorio RN - 01/08/2024 10:36 AM EDT Pt calls stating she received a call from [employer] to schedule a date to come out [...] herother labs that day. Colleen Solorio RN [facility] Work Phone: [phone]) [phone] Miscellaneous Notes* Telephone Encounter - Colleen Solorio RN - 01/08/2024 10:36 AM EDT Pt calls stating she received a call from [employer] to schedule a date to come out [...] day. Colleen Solorio RN documented in this encounterTogus [facility] Center06-12-2024 Telephone encounter Note * Telephone Encounter - Colleen Solorio RN - 12/20/2023 11:29 AM EDT Pt calls stating she's scheduled to have a consult with on 01/16 to have port removed. Colleen Solorio RN [facility] Work Phone: 1(323) 734-901206-12-2024 Miscellaneous Notes* Telephone Encounter - Colleen Solorio [...] you Prachi Gill, RN documented in this encounterTogus Va Medical Center06-12-2024 Telephone encounter Note * Telephone Encounter - Kristin Martinez - 12/20/2023 10:35 AM EDT Called Evan to see if she had gotten their message to call to schedule. She did not so I gave hertheir phone number to call and get that scheduled. [facility] Telephone encounter Note* Telephone Encounter - Kristin Martinez - 12/19/2023 9:14 AM EDT Order was received and they did call patient. Waiting on Rhondas response to get scheduled. [facility] Telephone encounter Note* Telephone Encounter - Kristin Martinez - 12/18/2023 9:50 AM EDT Refaxed order 12/18/2023 at 9:50 am. I was told as soon as they get the order they will call the patient. [facility]06-[facility] Telephone encounter Note* Telephone Encounter - Kristin Martinez - 12/14/2023 9:13 AM EDT Faxed order to , will call office to make sure they got it and scheduling information. [facility] Telephone encounter Note* Telephone Encounter - Prachi Gill RN - 12/13/2023 9:31 AM EDT Please sign order. Thanks!! Prachi Gill RN [facility]06-05-[facility] Telephone encounter Note* Telephone Encounter - Kristin Martinez - 12/13/2023 8:52 AM EDT Hi there, I would be happy to get this removal started, could you please enter an order for me? Thank you Kristin [facility]06-05-2024 Telephone encounter Note* Telephone Encounter - Prachi Gill RN - 12/13/2023 8:26 AM EDT Please arrange for port removal. Prachi Gill RN [facility]06-04-[facility] Telephone encounter Note* Telephone Encounter - Tapan Corona MD - 12/12/2023 5:58 PM EDT Yes. Please remove [facility]06-04-[facility] Telephone encounter Note* Telephone Encounter [...] Please advise. Thank you Prachi Gill RN [facility]05-17[facility] History of Present illness Narrative* Brandie Salmeron, CHIEF LEARNING OFFICER.ACCOUNT SERVICES ASSOCIATE - 11/24/2023 3:40 PM EDT COLORECTAL SURGERY November 24, 2023 Evan Gill 68 year old This consult was requested by Dr. Singer and my final recommendations will be communicated to the requesting health care provider by way of the shared medical record for internal providers or letter [employer] for external providers. Chief Complaint: [...] TID for nerve pain concern. Will discuss nursing home management with Dr. Singer. -continue probiotics for [...] and/or complications of treatment plan: logan Salmeron APRN.ACCOUNT SERVICES ASSOCIATE Colorectal Surgery [facility] Telephone encounter Note * Telephone Encounter - Cierra Lindquist RN - 11/21/2023 1:07 PM EDT Orders placed. [facility] Miscellaneous Notes* Telephone Encounter - iCerra Lindquist RN - 11/21/2023 1:07 PM EDT Orders placed. documented in this encounterT[facility]-2024 Telephone encounter Note * Telephone Encounter - Colleen Solorio RN - 11/13/2023 3:49 PM EDT DISCHARGE CALL BACK Today's date: November 13, 2023 Notified of Pt discharge by: hosp ADT folder Patient discharged on 11/10/23 from [place] to [place] Primary Cancer Diagnosis: rectal cancer Admitting Diagnosis: small bowel obstruction Discharge Summary/SBAR reviewed: Yes Handoff Discussed with Transitional Bradder: No, unavailable Psychosocial Risk Factors: None If [...] discharge Patient reminded of follow-up appointment with [facility] provider, Dr Corona on 01/16/24: Yes Discussed [...] weekend phone number? YES Colleen Solorio RN [facility] Work Phone: [phone] Miscellaneous Notes* Telephone Encounter - Colleen Solorio RN - 11/13/2023 3:49 PM EDT DISCHARGE CALL BACK Today's date: November 13, 2023 Notified of Pt discharge by: hosp ADT folder Patient discharged on 11/10/23 from [place] to Home Primary Cancer Diagnosis: rectal cancer Admitting Diagnosis: small bowel obstruction Discharge Summary/SBAR reviewed: Yes Handoff Discussed with Transitional Bradder: No, unavailable Psychosocial Risk Factors: None If [...] discharge Patient reminded of follow-up appointment with [facility] provider, Dr Corona on 01/16/24: Yes Discussed [...] YES Colleen Solorio RN documented in this encounterT[facility] NoteAr[facility] [id number] Telephone encounter Note* Telephone Encounter - Colleen Solorio RN - 11/10/2023 11:27 AM EDT Neel results received and pt notified that this was negative. Colleen Solorio RN [facility] Work Phone: 1([phone]) 510-198405-03-2024 Miscellaneous Notes* Telephone Encounter - Colleen Solorio RN - 11/10/2023 11:27 AM EDT Neel results received and pt notified that this was negative. Colleen Solorio RN * Telephone Encounter - Colleen Solorio RN - 11/02/2023 12:28 PM EDT Call placed to [facility] [place]. They have not received results yet from Neel. Lola spoke with Daksha at [facility]. She states this testing is still in [...] states it has not. Request faxed to [facility] [place] again, as well as the Neel order. Colleen Solorio RN * Telephone Encounter - Colleen Solorio RN - 10/17/2023 3:04 PM EDT Call received from Sonia at [facility] [place] stating they haven't ordered Signatera before. Order signed and faxed to [facility] as well as Sonia at [facility]. Colleen Solorio RN * Telephone Encounter - Colleen Solorio RN - 10/17/2023 1:51 PM EDT Email received that there is no residual tumor for Neel to be ordered on [id number]. Discussed with Dr Corona and he would like this added to [facility] W86- [id number]. Request faxed to [facility] today. Colleen Solorio RN documented in this encounterTog[facility]05-02-2024 [facility] 11-09-2023 NoteAr[facility]ri HospitalLzvefmov49-06-0827 NoteArbour-Hri [id number] Note [facility] [id number] NoteAr[facility]-Hri HospitalCkkcwnth94-17-0439 NoteAr[facility]-Hri HospitalZldczyyg64-46-1559 NoteArbour-Hri HospitalWzkzrlgi00-41-5522 Telephone encounter Note* Telephone Encounter - Cierra Lindquist RN - 11/06/2023 1:31 PM EDT Noted. Informed team that she will be coming to the emergency room for concerns of a bowel obstruction. [facility] Miscellaneous Notes* Telephone Encounter - [...] seeing Dr. Singer tomorrow in clinic. Contact# [phone] documented in this encounterT[facility]04-29-2024 Telephone encounter Note * Telephone Encounter - Tapan Corona MD - 11/06/2023 1:22 PM EDT Oh no and thanks for the update [facility]-29-2024 Miscellaneous Notes* Telephone Encounter - Tapan Corona MD - 11/06/2023 1:22 PM EDT Oh no and thanks for the update * Telephone Encounter - Colleen Solorio RN - 11/06/2023 12:50 PM EDT Pt's daughter notified of results. Daughter states pt is currently in the ER at [place] with a possible bowel obstruction. Pt was scheduled for follow up appointment with Dr Singer tomorrow so they arehopeful that she'll be able to see her today. Colleen Solorio, KAYA * Telephone Encounter - Colleen Solorio RN - 11/06/2023 12:48 PM EDT ----- Message from Tapan Corona MD sent at 11/06/2023 7:12 AM EDT ----- Please call with negative Signatera documented in this encounterTogus [facility] Center04-29-2024 Telephone encounter Note * Telephone Encounter - Colleen Solorio RN - 11/06/2023 12:50 PM EDT Pt's daughter notified of results. Daughter states pt is currently in the ER at [place] with a possible bowel obstruction. Pt was scheduled for follow up appointment with Dr Singer tomorrow so they arehopeful that she'll be able to see her today. Colleen Solorio RN [facility] Work Phone: [phone] Telephone encounter Note* Telephone Encounter - Colleen Solorio RN - 11/06/2023 12:48 PM EDT ----- Message from Tapan Corona MD sent at 11/06/2023 7:12 AM EDT ----- Please call with negative Signatera [facility]04-29-20[facility] Telephone encounter Note* Telephone Encounter [...] seeing Dr. Singer tomorrow in clinic. Contact# [phone] [facility]04-[facility] Telephone encounter Note* Telephone Encounter - Colleen Solorio RN - 11/02/2023 12:28 PM EDT Call placed to [facility] [place] follow up on results. They have not received results yet from [facility]. Lola spoke with Daksha at [facility]. She states this testing is still in progress. Blood sample received 10/11, tissue sample received 10/18. Final report should be available in 3-4 wks from 10/18 if no repeat or redraws are needed (which would be 11/08-11/15). Colleen Solorio RN [facility]04-20-2024 Progress note Author Ion [facility] October 28, 2023 10:25amNote Date/TimeApr2023 10:25[place] [address] General Surgery Progress Note Signed Patient: Evan Gill MR#: [id number] : 1955 Acct:[id number] Age/Sex: 68 / F Adm Date: 4 Loc: 4N Room: 8Q9028-2 Type: ADM IN Attending Dr: Jm Trujillo [...] health maintenance 11/02/18 [History Confirmed 10/26/23] omega 2-ydc-owi-fish oil 1,000 mg (120 mg-180 mg) capsule [...] mg/mL subcutaneous syringe (Prolia) 60 mg subcut [id number] 06/26/23 [History Confirmed 10/26/23] progesterone micronized 100 [...] -1000 / -1000 Weight 67.6 kg Labs 04/20/24 05:39 10/28/23 05:39 Laboratory Results - Last 48 hrs. 10/28/23 05:39: Corrected WBC 5.6, Uncorrected WBC Count 5.6, RBC 3.56 L, Hgb 10.6 L, Hct 31.9 L, MCV 89.6, MCH 29.7, MCHC 33.2, RDW 14.9, Plt Count 294, MPV 6.4, Neut % (Auto) 66.8, Lymph % (Auto) 13.6, Owen % (Auto) 11.9, Eos % (Auto) 7.1, Baso % (Auto) 0.6, Nucleat RBC Rel Count 0.1, Neut # (Auto) 3.8, Lymph # (Auto) 0.8 L, Owen # (Auto) 0.7, Eos # (Auto) 0.4, [...] % (Auto) 72.0, Lymph % (Auto) 10.5, Owen % (Auto) 11.5, Eos % (Auto) 5.6, Baso % (Auto) 0.4, Nucleat RBC Rel Count 0.0, Neut # (Auto) 5.7, Lymph # (Auto) 0.8 L, Owen # (Auto) 0.9 H, Eos # (Auto) [...] signed by DO Ion Eckert> 10/28/23 1025 [facility] Work Phone: 1([phone] 615-129704-19-2024 Telephone encounter Note* Telephone Encounter - Colleen Solorio RN - 10/27/2023 3:47 PM EDT Sonia calls back stating she looked into this a little further and she did send this specimen out on 10/18/23. Colleen Solorio RN [facility]04-19-2024 Progress note Author Jm Trujillo [facility] October 27, 2023 10:34amNote Date/TimeApril 2023 10:[place] [id number] Hospitalist Progress Note Signed Patient: Evan Gill MR#: [id number] : 1955 Acct:[id number] Age/Sex: 68 / F Adm Date: 4 Loc: 4N Room: 0J1304-4 Type: ADM IN Attending Dr: Jm Trujillo [...] signed by Jm Trujillo DO> 10/27/23 1034 [facility] Work Phone: 1(944) 454-895704-19-2024 Progress note Author Ion Eckert [facility] October 27, 2023 10:04amNote Date/TimeApril 2023 10:04[place] [address] General Surgery Progress Note Signed Patient: Evan Gill MR#: [id number] : 1955 Acct:[id number] Age/Sex: 68 / F Adm Date: 4 Loc: Room: 5P6166-1 Type: ADM IN Attending Dr: Jm Trujillo [...] health maintenance 11/02/18 [History Confirmed 10/26/23] omega 9-sku-agm-fish oil 1,000 mg (120 mg-180 mg) capsule [...] mg/mL subcutaneous syringe (Prolia) 60 mg subcut [id number] 06/26/23 [History Confirmed 10/26/23] progesterone micronized 100 [...] 1,000 mls @ 100 mls/hr IV .Q10H [facility] Stop: 10/25/24 01:44 Last Admin: 10/27/23 05:41 Dose: 100 mls/hr Ceftriaxone Sodium (Rocephin) 1 gm in 50 mls @ 100 mls/hr IV Q24H [facility] Last Admin: 10/27/23 01:56 Dose: 100 mls/hr Ondansetron HCl (Ondansetron 4 Mg/2 Ml Vial) 4 mg IV-PUSH Q6H PRN PRN Reason: Nausea And Vomiting Stop: 10/25/24 01:37 Last Admin: 10/26/23 11:41 Dose: 4 mg Pantoprazole Sodium (Pantoprazole 40 Mg Vial) 40 mg IV-PUSH DAILY [facility] Stop: 10/25/24 08:59 Last Admin: 10/27/23 09:06 [...] 10 Ml Syringe) 0 ml IV-PUSH QSHIFT [facility] Stop: 10/25/24 05:59 Last Admin: 10/27/23 05:41 [...] % (Auto) 72.0, Lymph % (Auto) 10.5, Owen % (Auto) 11.5, Eos % (Auto) 5.6, Baso % (Auto) 0.4, Nucleat RBC Rel Count 0.0, Neut # (Auto) 5.7, Lymph # (Auto) 0.8 L, Owen # (Auto) 0.9 H, Eos # (Auto) [...] % (Auto) 80.3, Lymph % (Auto) 8.5, Owen % (Auto) 9.5, Eos % (Auto) 0.9, Baso % (Auto) 0.8, Nucleat RBC Rel Count 0.0, Neut # (Auto) 8.5 H, Lymph # (Auto) 0.9 L, Owen # (Auto) 1.0 H, Eos # (Auto) 0.1, Baso # (Auto) 0.1, PHA CreatinineClear 53.18, Sodium 138, Potassium 4.8, Chloride 102, Carbon Dioxide 29.4, Anion Gap 11.4, BUN 19, Creatinine 0.85, Est GFR (CKD-EPI) > 60.0, [id number] H, Calcium 9.3, Magnesium 2.0 10/25/23 23:19: Troponin I High Sens 4.9 10/25/23 22:37: Urine Color Yellow, Urine Appearance Clear, Urine pH 5.5, Ur Specific [place] 1.037H, Urine Protein Negative, Urine Glucose (UA) [...] Neut % (Auto) 75.5, Lymph % (Auto)14.9, Owen % (Auto) 6.7, Eos % (Auto) 2.2, Baso % (Auto) 0.7, Nucleat RBC Rel Count 0.0, Neut # (Auto) 10.9 H, Lymph # (Auto) 2.2, Owen # (Auto) 1.0 H, Eos # (Auto) [...] <Electronically signed by DO Ion Eckert> 10/27/23 1002 [facility] Work Phone: 1(188) 546-469604-18-2024 Telephone encounter Note* Telephone Encounter - Colleen Solorio RN - 10/26/2023 1:50 PM EDT Call placed to Sonia to see if this has been sent out yet. She states it has not. Request faxed to [facility] [place] again, as well as the Neel order. Colleen Solorio RN [facility]04-18-2024 Consult note Author Ion Eckert [facility] October 26, 2023 11:12amNote Date/TimeApr2023 11:12[place] [address] General Surgery Consult Note Signed Patient: Evan Gill MR#: [id number] : 1955 Acct:[id number] Age/Sex: 68 / F Adm Date: 4 Loc: 4N Room: [address] [place] [address] Type: ADM IN Attending Dr: Jm Trujillo [...] her dietwith a low fiber diet in [facility]. She was admitted here in September waiting for bed at [facility] and her obstruction improved after about a [...] She was set to be transferred to [facility] but they are waiting on transport/beds. Currently she has much less abdominal pain although still a little bitof cramping occasionally. Not putting out anything into the ileostomy. She is not having any nauseaor vomiting. The NG tube annoying but she can tolerate it. She is not having much coming out of it. History of the open cholecystectomy back in the 70. She had the robotic low anterior resection with loop ileostomy in August 2023. She had radiation and chemotherapy. Dr. Laisha singer was her surgeon at [facility] Review of Systems Review of Systems All other systems reviewed & are negative unless noted below or in HPI [facility] Medical History Rectal cancer Colorectal cancer Menopause [...] health maintenance 11/02/18 [History Confirmed 10/26/23] omega 6-evs-gpz-fish oil 1,000 mg (120 mg-180 mg) capsule [...] mg/mL subcutaneous syringe (Prolia) 60 mg subcut [id number] 06/26/23 [History Confirmed 10/26/23] progesterone micronized 100 [...] Ringers) 1,000 mls @ 75 mls/hr IV .[id number] [facility] Stop: 10/25/24 01:44 Last Admin: 10/26/23 04:12 Dose: 75 mls/hr Ceftriaxone Sodium (Rocephin) 1 gm in 50 mls @ 100 mls/hr IV Q24H [facility] Last Admin: 10/26/23 04:11 Dose: 100 mls/hr Lactated Ringer's (Lactated Ringers) 1,000 mls @ 999 mls/hr IV .Q1H1M ONE Stop: 10/26/23 11:28 Ondansetron HCl (Ondansetron 4 Mg/2 Ml Vial) 4 mg IV-PUSH Q6H PRN PRN Reason: Nausea And Vomiting Stop: 10/25/24 01:37 Pantoprazole Sodium (Pantoprazole 40 Mg Vial) 40 mg IV-PUSH DAILY [facility] Stop: 10/25/24 08:59 Last Admin: 10/26/23 09:11 [...] % (Auto) 80.3, Lymph % (Auto) 8.5, Owen % (Auto) 9.5, Eos % (Auto) 0.9, Baso % (Auto) 0.8, Nucleat RBC Rel Count 0.0, Neut # (Auto) 8.5 H, Lymph # (Auto) 0.9 L, Owen # (Auto) 1.0 H, Eos # (Auto) 0.1, Baso # (Auto) 0.1, PHA CreatinineClear 53.18, Sodium 138, Potassium 4.8, Chloride 102, Carbon Dioxide 29.4, Anion Gap 11.4, BUN 19, Creatinine 0.85, Est GFR (CKD-EPI) > 60.0, [id number] H, Calcium 9.3, Magnesium 2.0 10/25/23 23:19: Troponin I High Sens 4.9 10/25/23 22:37: Urine Color Yellow, Urine Appearance Clear, Urine pH 5.5, Ur Specific [place] 1.037H, Urine Protein Negative, Urine Glucose (UA) [...] Neut % (Auto) 75.5, Lymph % (Auto)14.9, Owen % (Auto) 6.7, Eos % (Auto) 2.2, Baso % (Auto) 0.7, Nucleat RBC Rel Count 0.0, Neut # (Auto) 10.9 H, Lymph # (Auto) 2.2, Owen # (Auto) 1.0 H, Eos # (Auto) [...] signed by DO Ion Eckert> 10/26/23 1112 [facility] Work Phone: 1(851) 457-333404-18-2024 Progress note Author Jm Trujillo [facility] October 26, 2023 10:34amNote Date/TimeApril 2023 10:34[place] [address] Hospitalist Progress Note Signed Patient: Evan Gill MR#: [id number] : 1955 Acct:[id number] Age/Sex: 68 / F Adm Date: 4 Loc: Room: [address] [place] [address] Type: ADM IN Attending Dr: Jm Trujillo [...] Lactated Ringers IV 10/25/24 01:44 75 mls/hr .[id number] YUMIKO Administration Ceftriaxone Sodium 1 gm in [...] Consult general surgery ? May transfer to [facility] when bed available ? NG to [...] to low intermittent suction. Documented By: Jm Trujillo, 1029 Signed By: <Electronically signed by Jm Trujillo, DO> 10/26/23 1034 [facility] Work Phone: 1(290) 915-464104-18-2024 History and physical note Author Patrice Hooks [facility] October 26, 2023 4:08amNote Date/TimeApril 2023 1:48[place] [address] Hospitalist H&P Signed Patient: Evan Gill MR#: [id number] : 1955 Acct:[id number] Age/Sex: 68 / F Adm Date: 4 Loc: Room: [address] [place] [address] Type: ADM IN Attending Dr: Patrice Hooks MD Copies to: MD Charles Peng DO Paula G Smith, CHIEF LEARNING OFFICER~ HPI DATE OF EXAMINATION: 10/26/23 CHIEF COMPLAINT: abdominal pain HISTORY OF PRESENT ILLNESS: Attending note: I saw the patient personally on the day of encounter. I reviewed the relevant history, and performed the guzman elements of the physical examination. I reviewedthe relevant laboratory workup, radiological studies and the current treatment plan. I formulated the plan of care and confirmed it with the re sident/student/[employer]PER[employer]. Ms. Gill is a 68-year-old female with [...] Patient's proctosigmoidectomy was performed at [facility], surgeon was contacted there per the ER physician and the patientwas accepted however we are waiting on a bed. She will be admitted as inpatient to the medical floor while awaiting a bed. Review of Systems Review of Systems Review of systems: A 10 point review of systems was obtained, negative unless noted in the HPI or below. [facility] Medical History Rectal cancer Colorectal cancer Menopause [...] health maintenance 11/02/18 [History Confirmed 10/26/23] omega 3-sgi-ovv-fish oil 1,000 mg (120 mg-180 mg) capsule [...] mg/mL subcutaneous syringe (Prolia) 60 mg subcut [id number] 06/26/23 [History Confirmed 10/26/23] progesterone micronized 100 [...] H 10/25/23 20: RBC 4.39 X10E6/uL (3.60-5.00) 10/25/23: Hgb 12.9 g/dL (11.8-15.4) 10/25/23: Hct 38.4 % (34.0-46.4) 10/25/23: MCV 87.5 fl (80-100) 10/25/23: MCH 29.3 pg (24.7-34.3) 10/25/23: MCHC 33.5 g/dL (32.0-35.0) 10/25/23: RDW 15.5 % (11.9-15.3) H 10/25/23: Plt Count 397 x10E3/uL (150-450) 10/25/23: MPV 6.4 fl (6.3-10.7) 10/25/23: Neut % (Auto) 75.5 % (.) 10/25/23: Lymph % (Auto) 14.9 % (.) 10/25/23: Owen % (Auto) 6.7 % (.) 10/25/23: Eos % (Auto) 2.2 % (.) 10/25/23: Baso % (Auto) 0.7 % (.) 10/25/23: Nucleat RBC Rel Count 0.0 /100 WBC (0-0.5) 10/25/23 Neut # (Auto) 10.9 x10E3/uL (1.8-7.7) H 10/25/23: Lymph # (Auto) 2.2 x10E3/uL (1.00-4.8) 10/25/23: Owen # (Auto) 1.0 x10E3/uL (0.0-0.8) H 10/25/23: Eos # (Auto) 0.3 x10E3/uL (0.0-0.45) 10/25/23: Baso # (Auto) 0.1 x10E3/uL (0.0-0.2) 10/25/23 20: Monocyte Dist Width 18.93 % (0.00-20.00) 10/25/23 20: PT 11.4 Seconds (9.0-12.9) 10/25/23 20: INR 1.0 10/25/23 20: APTT 25.0 Seconds (25.1-36.5) L 10/25/23 20: D-Dimer Quant (PE/DVT) 312 ng/mL (0-243) H 10/25/23 20: D-Dimer Quant (PE/DVT) Cancelled 10/25/23 20: PHA Creatinine Clear 61.55 10/25/23 20: Sodium 133 mmol/L (136-145) L D 10/25/23 20: Potassium 4.0 mmol/L (3.5-5.1) 10/25/23 20: Chloride 100 mmol/L (98-107) 10/25/23 20: Carbon Dioxide 21.9 mmol/L (21.0-31.0) 10/25/23: Anion [...] 20:27 AST 52 U/L (13-39) H 10/25/23 20: ALT 36 U/L (7-52) 10/25/23 20:27 Alkaline [...] pH 5.5 (5.0-9.0) 10/25/23 22:37 Ur Specific [place] 1.037 (1.001-1.030) H 10/25/23 22:37 Urine Protein [...] Consult general surgery ? May transfer to [facility] when bed available ? NG to [...] signed by Patrice Hooks MD> 10/26/23 0408 [facility] Work Phone: 1(183) 790-418504-17-2024 Miscellaneous Notes* Telephone Encounter - Cierra Lindquist RN - 10/25/2023 2:44 PM EDT Returned call. She states she is having the signs of another small bowel obstruction. She has not had stool in her ostomy since 3am. She is requesting pain medication to relax her bowels. She states that is what [facility] did to help her have bowel movements [...] ER and is requesting pain medication. Contact# [phone] documented in this encounterT[facility]04-09-2024 Telephone encounter Note * Telephone Encounter - Colleen Solorio RN - 10/17/2023 3:04 PM EDT Call received from Sonia at [facility] [place] stating they haven't ordered Signatera before. Order signed and faxed to Neel as well as Sonia at [facility]. Colleen Solorio RN [facility]04-09-2024 Telephone encounter Note* Telephone Encounter - Colleen Solorio RN - 10/17/2023 1:51 PM EDT Email received that there is no residual tumor for Neel to be ordered on W22- [id number]. Discussed with Dr Corona and he would like this added to [facility] T00- [id number]. Request faxed to [facility] today. Colleen Solorio RN [facility]04-02-2024 History of Present illness Narrative* [...] 2023 Time: 1:37 PM documented in this encounterTogus [facility] Center04-02-2024 History of Present illness Narrative* [...] by: Del Hudson MD cc: Charles Bazzi, [address] [place] [phone] No referring provider defined for this encounter. documented in this encounterTogus Va Medical Center04-02-2024 History of Present illness Narrative* Tapan Corona MD - 10/10/2023 11:06 AM EDT Images from the original note were not included. PATIENT NAME: Evan iGll CLINIC NO.: [id number] ATTENDING PHYSICIAN: Tapan Corona MD DATE OF [...] Range Status 08/31/2023 7.2 % Final Abs Owen Date Value Ref Range Status 08/31/2023 0.67 [...] do not hesitate to contact me at [phone]. Tapan Corona MD Hematology/Medical Oncology [facility] Pasquale spent a total of 30 minutes on the date of the service which included preparing to see the patient, [id number] patient care, completing clinical documentation, obtaining and/or reviewing separately obtained history, performing a medically appropriate examination, counseling and educating the pat ient/family/caregiver, and ordering medications, tests, or procedures. CC: documented in this encounterTogus Va Medical Center03-24-2024 Progress note Author Tim Garduno [facility] October 01, 2023 1:12pmNote Date/TimeMarch 2023 10:31[place] [address] Hospitalist Progress Note Signed with Addenda Patient: Evan Gill MR#: [id number] : 1955 Acct:[id number] Age/Sex: 68 / F Adm Date: 4 Loc: Room: [address] [place] [address] Type: ADM IN Attending Dr: Tim Garduno [...] signed by Tim Garduno MD> 10/01/23 1033 [facility] Work Phone: 1(460) 353-868103-23-2024 Progress note Author Tim Garduno [facility] September 30, 2023 11:15amNote Date/TimeMarch 2023 11:15[place] [address] Progress Note Signed Patient: Evan Gill MR#: [id number] : 1955 Acct:[id number] Age/Sex: 68 / F Adm Date: 4 Loc: Room: [address] [place] [address] Type: ADM IN Attending Dr: Tim Garduno MD Copies to: ~ Date of Service: 09/30/2023 Progress Narrative Note SBO PROGRESS NOTE Progress Note: Case was discussed with patient's surgeon at [facility] Dr. Durán, hereviewed her CT scan that was done here and showed SBO and suggested to provide IV fluids and ostomy irrigation/enema and hopefully she will improve with conservative management and save the trip back to [place]. He states if she does not improve [...] <Electronically signed by Tim Garduno MD> 09/30/23 [facility]5 [facility] Work Phone: 1(250) 245-738203-23-2024 Consult note Author Cristhian Vargas [facility] September 30, 2023 10:17amNote Date/TimeMarch 2023 10:17[place] [address] General Surgery Consult Note Signed Patient: Evan Gill MR#: [id number] : 1955 Acct:[id number] Age/Sex: 68 / F Adm Date: 4 Loc: Room: [address] [place] [address] Type: ADM IN Attending Dr: Tim Garduno MD Copies to: MD Charles Govea,DO Tim Garduno MD~ History of Present Illness Date of consult: 09/30/2023 Reason for consult: other (Bowel obstruction) Requesting/Attending Provider: Tim Garduno MD History of present illness: Patient is a 68-year-old female who last month underwent robotic laparoscopic assisted low anteriorresection for rectal cancer at [facility]. She had previously been treated [...] the ileostomy. No bed was available at [facility]. Patient was admitted here. This morning, patient states that she had a little bit of crampy pain and then had suddenly a largeoutput from her ileostomy. There was about 500 cc. She feels better now. Review of Systems Constitutional Constitutional: Denies fever(s) Cardiovascular Cardiovascular: Denies chest pain Respiratory Respiratory: Denies dyspnea Gastrointestinal Gastrointestinal: Reports abdominal pain and Denies vomiting Neurologic Neurologic: Denies syncope [facility] Medical History (Updated 09/30/23 @ 10:16 by [...] health maintenance 11/02/18 [History Confirmed 09/30/23] omega 9-bmx-pmu-fish oil 1,000 mg (120 mg-180 mg) capsule [...] mg/mL subcutaneous syringe (Prolia) 60 mg subcut [id number] 06/26/23 [History Confirmed 09/30/23] progesterone micronized 100 [...] Neut % (Auto) 71.5, Lymph % (Auto) 12.0,Owen % (Auto) 8.0, Eos % (Auto) 7.3, Baso % (Auto) 1.2, Nucleat RBC Rel Count 0.1, Neut # (Auto) 6.8, Lymph # (Auto) 1.1, Owen # (Auto) 0.8, Eos # (Auto) 0.7 H, Baso # (Auto) 0.1, Monocyte Dist Width15.40, PHA Creatinine Clear 56.50, Sodium 139, Potassium 3.9, Chloride 105, Carbon Dioxide 25.6, Anion Gap 12.3, BUN 21, Creatinine 0.72, Est GFR (CKD- EPI) > 60.0, Glucose 111 H, Calcium 9.8, Total Bilirubin 0.5, Direct Bilirubin 0.10, Indirect Bilirubin 0.4, AST 19, ALT 15, Alkaline Ljrkidfuksz16,Total Protein 6.7, Albumin 4.1, Globulin 2.6, Albumin/Globulin Ratio 1.6, Lipase5.0 L A&P - General Surgery (1) SBO (small bowel obstruction): (2) Ileostomy status: (3) Rectal cancer: Plan Ileostomy has started functioning. Will start clear liquids. Advance diet as tolerated. If patient worsens again, transfer to [facility] tomorrow. Documented By: Cristhian Vargas MD 09/30/23 1010 Signed By: <Electronically signed by MD Cristhian Vargas> 09/30/23 1017 [facility] Work Phone: 1(322) 695-750603-23-2024 History and physical note Author Miguel Ángel Delgadillo [facility] September 30, 2023 6:58amNote Date/TimeMarch 2023 5:29[place] [address] Hospitalist H&P Signed Patient: Evan Gill MR#: [id number] : 1955 Acct:[id number] Age/Sex: 68 / F Adm Date: 4 Loc: Room: [address] [place] [address] Type: ADM IN Attending Dr: Miguel Ángel [...] reports are out of hospital reading. final [facility] radiology report pending) [facility] was contacted but they are not [...] care Discussed with:?the medical team, the patient [facility] Medical History (Updated 09/30/23 @ 03:06 by [...] health maintenance 11/02/18 [History Confirmed 06/26/23] omega 5-hdu-ywy-fish oil 1,000 mg (120 mg-180 mg) capsule [...] mg/mL subcutaneous syringe (Prolia) 60 mg subcut [id number] 06/26/23 [History Confirmed 06/26/23] hydrocodone 5 mg-acetaminophen [...] % (Auto) 12.0 % (.) 09/30/23 01:20 Owen % (Auto) 8.0 % (.) 09/30/23 01:20 Eos % (Auto) 7.3 % (.) 09/30/23 01:20 Baso % (Auto) 1.2 % (.) 09/30/23 01:20 Nucleat RBC Rel Count 0.1 /100 WBC (0-0.5) 09/30/23 01:20 Neut # (Auto) 6.8 x10E3/uL (1.8-7.7) 09/30/23 01:20 Lymph # (Auto) 1.1 x10E3/uL (1.00-4.8) 09/30/23 01:20 Owen # (Auto) 0.8 x10E3/uL (0.0-0.8) 09/30/23 01:20 [...] by Miguel Ángel Delgadillo MD> 09/30/23 0658 [facility] Work Phone: 1(915) 603-161103-15-2024 History of Present illness Narrative* Brandie Salmeron APRN.ACCOUNT SERVICES ASSOCIATE - 09/22/2023 2:40 PM EDT COLORECTAL SURGERY September 22, 2023 Evan C Shaunalysha 68 year old This consult was requested by Dr. Singer and my final recommendations will be communicated to the requesting health care provider by way of the shared medical record for internal providers or letter [employer] for external providers. Chief Complaint: [...] lower quadrant. Red, healthy mucosa. Round, budded. Anne-Marie 2 piece pouch intact, patient placed, effluent [...] Salmeron APRN.MERARY Colorectal Surgery documented in this encounterT[facility]29-[facility]24 Miscellaneous Notes* Telephone Encounter - [...] advise Colleen Solorio RN documented in this encounterTogus [facility]02-28-2024 Miscellaneous Notes* Telephone Encounter - Colleen Solorio RN - 09/06/2023 2:58 PM EST DISCHARGE CALL BACK Today's date: September 06, 2023 Notified of Pt discharge by: hospital ADT folder Patient discharged on 09/04/23 from [place] to Home Primary Cancer Diagnosis: rectal cancer Admitting Diagnosis: Small bowel obstruction Discharge Summary/SBAR reviewed: Yes Handoff Discussed with Transitional Bradder: No, unavailable Psychosocial Risk Factors: None If [...] Corona Patient reminded of follow-up appointment with [facility] provider, Dr Corona on TBD: Yes Discussed [...] YES Colleen Solorio RN documented in this encounterTog[facility]02-27-2024 Miscellaneous Notes* Telephone Encounter - Cierra Lindquist RN - 09/05/2023 1:07 PM EST Tumor board documented in this encounterTogus [facility] Center02-26-2024 [facility] 09-03-2023 NoteAr[facility] HospitalQhjabgvx25-79-5921 NoteArbour-Hri HospitalMqhwzgkc00-63-2640 Miscellaneous Notes* Telephone Encounter - Colleen Solorio RN - 09/01/2023 12:58 PM EST DISCHARGE CALL BACK Today's date: September 01, 2023 Notified of Pt discharge by: hospital adt folder Patient discharged on 08/30/23 from [place] to Home Primary Cancer Diagnosis: rectal cancer Admitting Diagnosis: surgery-ileostomy Discharge Summary/SBAR reviewed: Yes Handoff Discussed with Transitional Bradder: No, unavailable Psychosocial Risk Factors: None unable to assess, didn't speak with patient If patient discharged to SNF/Rehab Facility, phone call completed to reinforce discharge instructions and follow up: N/A Call Disposition: Readmitted or In Emergency Department Colleen Solorio RN documented in this encounterTogus [facility] Center02-23-2024 [facility] 08-31-2023 NoteArbour-Hri HospitalGqysqkoy15-62-6912 History of Past illness Narrative* ProblemNoted DateDiagnosed DateResolved DateSmall bowel chdukejxizs93/22/2024 09/04/2023Encounter for ostomy care /4documented as of this encounter (statuses as of 09/06/2023) [facility] History of Past illness Narrative* ProblemNoted Date Diagnosed DateResolved DateSmall bowel eyvwxsqkjby61/22/202402/ Encounter for ostomy care /4documented as of this encounter (statuses as of 09/06/2023) [facility] History of Past illness Narrative* ProblemNoted Date Diagnosed DateResolved DateSmall bowel gndeaiuwjva07/22/202402/ Encounter for ostomy care hzgygjtqd84/4documented as of this encounter (statuses as of 09/07/2023) [facility] of Past illness Narrative* ProblemNoted Date Diagnosed DateResolved DateSmall bowel expgvjaknzl55 Encounter for ostomy care ckpsvmjxu82/4documented as of this encounter (statuses as of 09/07/2023) [facility] of Past illness Narrative* ProblemNoted Date Diagnosed DateResolved DateSmall bowel upgiviiafmq87 Encounter for ostomy care tmbuqdovf834documented as of this encounter (statuses as of 09/14/2023) [facility] of Past illness Narrative* ProblemNoted Date Diagnosed DateResolved DateSmall bowel dyfaszrxerd87 Encounter for ostomy care pkcakzmof614documented as of this encounter (statuses as of 09/22/2023) [facility] of Past illness Narrative* ProblemNoted Date Diagnosed DateResolved DateSmall bowel cfjtoscyenq08 Encounter for ostomy care khcvbwjbs884documented as of this encounter (statuses as of 10/10/2023) [facility] of Past illness Narrative* ProblemNoted Date Diagnosed DateResolved DateSmall bowel uytzpbyxdgo52 Encounter for ostomy care kgtgwlobi604documented as of this encounter (statuses as of 10/11/2023) [facility] of Past illness Narrative* ProblemNoted Date Diagnosed DateResolved DateSmall bowel Encounter for ostomy care sdylwzwew42/4documented as of this encounter (statuses as of 10/19/2023) [facility] History of Past illness Narrative* ProblemNoted Date Diagnosed DateResolved DateSmall bowel ribvylnobkm02 Encounter for ostomy care pznycxkbz43/4documented as of this encounter (statuses as of 10/26/2023) [facility] History of Past illness Narrative* ProblemNoted Date Diagnosed DateResolved DateSmall bowel emikmztnved56/22/202402/ Encounter for ostomy care ahndpnysq96/4documented as of this encounter (statuses as of 10/17/2023) [facility]2024 NoteAr[facility] HospitalJnrsudae74-24-2397 [facility] 08-29-2023 NoteArbour-Hri HospitalGhetithg07-25-5974 NoteArbour-Hri HospitalLbzjwsms27-86-3130 Note [facility] HospitalLppoxfpn93-59-4828 NoteHNO ID: [id number] Author: DONN SAMUELS RN Service: ? Author Type: Registered Nurse Type: Nursing Progress Note Filed: 08/27/2023 02:07 Note Text: Pt states tolerating clears. Oxycodone controlling abd pain and given at 2024. [facility] HospitalDtijuxjr32-33-0744 History of Past illness Narrative* ProblemNoted Date Diagnosed DateResolved DateEncounter for ostomy care /17/2024 4documented as of this encounter (statuses as of 09/01/2023) [facility]24 NoteArbour-Hri HospitalAnmgrpnh97-01-4354 [facility] 08-25-2023 NoteArbour-Hri HospitalWxmegslt84-21-1256 [facility]02-16-2024 Note [facility] HospitalEzyfxlhm99-85-2577 History and physical note* Jordan Ramos APRN.ACCOUNT SERVICES ASSOCIATE - 08/11/2023 12:40 PM EST Images from [...] Take 1 Each by mouth once daily. [employer] supplies guzman mitochondrial micronutrients and a smart [...] fevers. Neuro: No history of TIA's, stroke, DIRECTOR PRODUCT DEVELOPMENT tumor, impaired sensorium, hemiplegia, paraplegia or quadraplegia. [...] or incontinence,, stones or chronic kidney disease PROJECT INTERN: Negative for abnormal vaginal bleeding, abnormal vaginal [...] range. No results found for: HBA1C EKG 12..23 EKG 10/26/22 ECHO 04/05/23 STRESS 04/27/23 CONCLUSIONS: [...] a low risk scan. CHEST XR 06/26/23 [id number] PLACEMENT, DESCRIBED. NO ACUTE FINDINGS Assessment/Plan Atrial [...] myocardial fusion study which done at the [facility] and was able to retrieve the result [...] This Encounter Confirm Blood Type Order Comments: [facility] Standing Status: Future Standing Expiration Date: [...] 2023 TIME: 12:16 PM documented in this encounterTogus [facility] Center02-02-2024 Instructions* Patient Instructions* Jordan Ramos APRN.CNP - 08/11/2023 12:14 PM EST PATIENT PREOPERATIVE INSTRUCTIONS Laisha Singer MD has scheduled you for your procedure at this [facility] center[facility]: [phone] [place] [address]. Please check in on the1st floor at [...] Procedures: - YOU MUST HAVE A RESPONSIBLE POWER PLANT INSTALLER TAKE YOU HOME. A FIELD SPEC OR ASSISTANT PROGRAM DIRECTOR CANNOT BE MADE A RESPONSIBLE POWER PLANT INSTALLER. - We recommend that a responsible person [...] Advance Directive, please fax a copy to [phone] or email to for it to be [...] your chart that day. documented in this encounterTogus Va Medical Center01-16-2024 History of Present illness Narrative* [...] myocardial fusion study which done at the [facility] and was able to retrieve the result [...] mouth once daily., Disp: , Rfl: omega 3-hez-hlr-fish oil (Fish OiL) 1,000 mg (120 mg-180 [...] this encounterC[facility] Work Phone: 1(319) 611-781901-16-2024 Instructions* Patient Instructions* Madison Sylvester LPN - [...] this encounterCleveland Clinic [facility] Work Phone: 1(958) 508-770712-13-2023 Miscellaneous Notes* Telephone Encounter - Colleen Solorio [...] education. Colleen Solorio RN documented in this encounterTogus Va Medical Center12-12-2023 History of Present illness Narrative* [...] (RECOMMENDATION): N/A Colleen Solorio RN * Brandie Clayton, [facility] - 06/20/2023 10:00 AM EST Images from the original note were not included. [facility] Department of Pharmacy Oncology Pharmacy Medication [...] Serena Clayton RPh Pager: documented in this encounterTogus Va Medical Center12-12-2023 Miscellaneous Notes* Addendum Note - Brandie Clayton RPh - 06/20/2023 10:00 AM ESTAddended by: BRANDIE CLAYTON on: 06/20/2023 11:35 AM Modules accepted: Orders documented in this encounterTogus Va Medical Center12-06-2023 History of Present illness Narrative* Tapan Corona MD - 06/14/2023 3:17 PM EST Images from the original note were not included. PATIENT NAME: Evan Gill CLINIC NO.: [id number] ATTENDING PHYSICIAN: Tapan Corona MD DATE OF [...] Range Status 06/14/2023 8.8 % Final Abs Owen Date Value Ref Range Status 06/14/2023 0.97 [...] do not hesitate to contact me at [phone]. Tapan Corona MD Hematology/Medical Oncology [facility] Giordano spent a total of 30 minutes on the date of the service which included preparing to see the patient, vyss-lt-jude patient care, completing clinical documentation, obtaining and/or reviewing separately obtained history, performing a medically appropriate examination, counseling and educating the pat ient/family/caregiver, and ordering medications, tests, or procedures. CC: documented in this encounterTogus Va Medical Center12-04-2023 History of Present illness Narrative* Joann Torres [...] a Angio cath: 22 gauge. RADIOLOGY DEPARTMENT: ; Exam(s) Completed: Body: Rectal SIGNATURE: RT Josh(R) PATIENT NAME: Evan Gill DATE: June 12, 2023 TIME: 11:44 AM documented in this encounterTogus Va Medical Center11-30-2023 History and physical note * [...] 2023 TIME: 12:39 PM documented in this encounterTogus Va Medical Center11-20-2023 History of Present illness Narrative* [...] Take 1 Each by mouth once daily. [employer] supplies guzman mitochondrial micronutrients and a smart [...] by: Del Hudson MD cc: Charles Bazzi, [address] [phone] No referring provider defined for this encounter. documented in this encounterTogus Va Medical Center11-02-2023 Evaluation note* Encounter Date Diagnosis Assessment Notes Treatment Notes Treatment Clinical Notes May, Hypertension (ICD-10 - I10) May,Stress incontinence in female (ICD-10 - N39.3) May,ERD (gastroesophageal reflux disease) (ICD-10 - K21.9) [employer] Other [id number] History of Present illness Narrative* Del Hudson MD - 05/10/2023 12:00 AM EDT [facility] Radiation Oncology Department RADIATION ONCOLOGY - [...] weeks for postradiation follow-up. Staff Physician Shan Hudsno M.D. / TINA :11 PM Electronically Signed cc: Dr. Charles Corona documented in this encounterTogus Va Medical Center10-30-2023 History of Present illness Narrative* [...] weeks. Del Hudson MD documented in this encounterTogus Va Medical Center10-30-2023 Nurse Note* Brisa Zapata LPN - 05/08/2023 10:59 AM EDT Status: Post-menopausal. 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 Toney [facility]. She is currently going through radiation treatment five days a week. Oral chemo therapy was stopped due to negative side effects. Patient appears to be doing well, she does speak in a positive tone and doesnt show signsof distress. Apr,hest pain (ICD-10 - R07.9) Patient did have a stress test done through the [facility], this was normal. Reports after the oral chemotherapy was stopped the chest pain did resolve. We will continue to monitor. Apr,Hyperlipidemia (ICD-10 - E78.5) Blood work ordered for medicare wellness. [employer] Other 10-23-2023 History of Present illness Narrative* [...] Pyridium. Del Hudson MD documented in this encounterTogus Va Medical Center10-20-2023 History of Present illness Narrative* Tapan Corona MD - 04/28/2023 2:30 PM EDT Images from the original note were not included. PATIENT NAME: Evan Gill CLINIC NO.: [id number] ATTENDING PHYSICIAN: Tapan Corona MD DATE OF [...] Range Status 04/28/2023 9.9 % Final Abs Owen Date Value Ref Range Status 04/28/2023 0.48 [...] monitoring as part of [facility] [place] [facility] [place] and was normal. See back in 6 weeks after MRI Thank you for the kind referral. If there are any questions and or concerns please do not hesitate to contact me at [phone]. Tapan Corona MD Hematology/Medical Oncology [facility] Giordano spent a total of 30 minutes on the date of the service which included preparing to see the patient, jdix-jv-jbyd patient care, completing clinical documentation, obtaining and/or reviewing separately obtained history, performing a medically appropriate examination, counseling and educating the pat ient/family/caregiver, and ordering medications, tests, or procedures. CC: documented in this encounterTogus Va Medical Center10-17-2023 History of Present illness Narrative* Osmany Lee, CLAUDETTET - 04/25/2023 1:46 PM EDT Patient Name: [...] 2023 Time: 1:46 PM documented in this encounterTogus Va Medical Center10-16-2023 History of Present illness Narrative* [...] diarrhea. Del Hudson MD documented in this encounterTogus Va Medical Center10-06-2023 History of Present illness Narrative* Tapan Corona MD - 04/14/2023 10:19 AM EDT Images from the original note were not included. PATIENT NAME: Evan Gill CLINIC NO.: [id number] ATTENDING PHYSICIAN: Tapan Corona MD DATE OF [...] Range Status 04/14/2023 9.1 % Final Abs Owen Date Value Ref Range Status 04/14/2023 0.42 [...] radiation. Seeing cardiology next week [place] [facility] reviewed and was normal. 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 If there are any questions and or concerns please do not hesitate to contact me at [phone]. Tapan Corona MD Hematology/Medical Oncology [facility]ass[facility] Giordano spent a total of 30 minutes on the date of the service which included preparing to see the patient, yhmf-sa-yull patient care, completing clinical documentation, obtaining and/or reviewing separately obtained history, performing a medically appropriate examination, counseling and educating the pat ient/family/caregiver, and ordering medications, tests, or procedures. CC: documented in this encounterTogus Va Medical Center10-02-2023 History of Present illness Narrative* [...] treatment. Del Hudson MD documented in this encounterTogus Va Medical Center10-02-2023 Nurse Note* Prachi Gill RN - 04/10/2023 11:12 AM EDT Status: Post-menopausal. Prachi Gill RN documented in this encounterTogus Va Medical Center09-29-2023 Miscellaneous Notes* Telephone Encounter - Colleen Solorio RN - 04/07/2023 4:11 PM EDT There has been a change in treatment plan and pt will no longer need a port. Damaris notified and she will cancel this. Colleen Solorio RN * Telephone Encounter - Damaris Koehler - 04/06/2023 3:36 PM EDT Patient's port has been scheduled in [place] on 04/11. 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 * Telephone Encounter - Linda uGillen RN - 04/06/2023 1:46 PM EDT Clerical: Pt will need to see Dr Corona tomorrow for follow up. Please schedule and call pt w/ appointment. Thanks! Linda Guillen RN * Telephone Encounter - Damaris Koehler - 04/06/2023 1:38 PM EDT Per Venecia, PSS she reports [facility] [place] to inform they are discharging her today and will not be doing the port or EGD. I spoke w/ [facility] port scheduling with Marleni and she stated they may have a cancellation in [place] on 04/11 but this is still up in the air and she will let me know. If this date will not be available, Iwill call local. Faxed EGD order to Dr. Greene's office. Damaris Koehler * Telephone Encounter - Colleen Solorio RN - 04/05/2023 4:59 PM EDT KK: please sign orders for EGD. If [facility] [place] not able to do it we will get it scheduled at [facility]. Thanks Colleen Solorio RN * Telephone Encounter [...] Thanks Colleen Solorio RN documented in this encounterTogus Va Medical Center09-28-2023 Miscellaneous Notes* Telephone Encounter - Mylene Byers RN - 04/06/2023 3:37 PM EDT You are scheduled for a Port Placement, On 04/11/2023. You are to arrive at 2:00 PM and Report to [facility]: Enter through [facility] entrance.Proceed to [...] if they are not done at a [facility] facility. . 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 Private car. You will need a responsible adult to accompany you to and from the procedure. If you have any questions, please call [phone] [facility] [address] [place] [address] documented in this encounterTogus Va Medical Center09-28-2023 Progress note Author Agustin Negron [facility] April 06, 2023 12:42pmNote Date/TimeSept2022 12:42pm[address] [address] Hospitalist Progress Note Signed Patient: Evan Gill MR#: [id number] : 1955 Acct:[id number] Age/Sex: 67 / F Adm Date: 3 Loc: 3T Room: [address] [place] [address] Type: ADM INOo Attending Dr: Agustin Negron [...] Tablet PO 04/05/24 08:59 5 mg DAILY [facility] Administration Aspirin 81 mg 04/06/23 09:00 04/06/23 08:44 Aspirin 81 Mg Tablet. PO 04/05/24 08:59 81 mg DAILY [facility] Administration Calcium Carbonate 1 tab 04/06/23 09:00 04/06/23 08:44 Calcium Carbonate/Vitamin D3 500 Mg/200 Unit Tablet PO 04/05/24 08:59 1 tab DAILY [facility] Administration Enoxaparin Sodium 60 mg 04/05/23 18:15 04/06/23 06:16 Enoxaparin 60 Mg/0.6 Ml Syringe SUBCUT 04/04/24 18:14 60 mg Q12H [facility] Administration Fish Oil 1,000 mg 04/06/23 09:00 04/06/23 08:44 Dewey-3/Fish Oil 1,000 Mg Capsule PO 04/05/24 08:59 1,000 mg DAILY [facility] Administration Lact Acid/Bifidobact/Lact Paracas/Streptoc Th 1 cap 04/06/23 09:00 04/06/23 08:45 L. Acidophilus/Strept/La P-Jasper 1 Cap Capsule PO 04/05/24 08:59 1 cap DAILY [facility] Administration Lisinopril 10 mg 04/06/23 09:00 04/06/23 08:44 Lisinopril 10 Mg Tablet PO 04/05/24 08:59 10 mg DAILY [facility] Administration Magnesium Oxide 400 mg 04/06/23 09:00 04/06/23 08:44 Magnesium Oxide 400 Mg Tablet PO 04/05/24 08:59 400 mg DAILY [facility] Administration Meloxicam 15 mg 04/07/23 09:00 Meloxicam *Nf* 15 Mg Tablet PO 04/06/24 08:59 DAILY [facility] Nitroglycerin 0.4 mg 04/05/23 13:09 04/05/23 13:32 Nitroglycerin 0.4 Mg Tab.Subl SUBLINGUAL 04/04/24 13:08 0.4 mg Q5M PRN Administration Chest Pain Non-Formulary Medication 1 packet 04/06/23 09:00 Testosterone TRANSDERML 04/05/24 08:59 DAILY [facility] Ondansetron HCl 8 mg 04/05/23 16:46 Ondansetron [...] 3. Colon cancer The patient follows with [facility] group, we will consult Hopefully she can be discharged today Documented By: Agustin Negron MD 04/06/231239 Signed By: <Electronically signed by Agustin Negron MD> 04/06/23 1242 [facility] Work Phone: 1(193) 425-163809-28-2023 Consult note Author Marcos Rios [facility] April 06, 2023 10:58amNote Date/TimeSept2022 10:55[place] [address] Cardiology Consult Note Signed Patient: Evan Gill MR#: [id number] : 1955 Acct:[id number] Age/Sex: 67 / F Adm Date: 3 Loc: Room: [address] [place] [address] Type: ADM INOo Attending Dr: Agustin Negron MD Copies to: CharlesDO Agustin Ross MD Mourhaf A Traboulssi, MD~ Cardiology HPI [...] and no additional complaints, except as documented [facility] Medical History (Updated 04/06/23 @ 10:56 by [...] bone health 11/02/18 [History Confirmed 04/05/23] omega 8-vct-ucg-fish oil 1,000 mg (120 mg-180 mg) capsule [...] x10E3/uL Lymph # (Auto) 2.6 (1.00-4.8) x10E3/uL Owen # (Auto) 0.5 (0.0-0.8) x10E3/uL Eos # [...] basis. Documented By: Marcos Rios MD 04/06/23 1051 Signed By: <Electronically signed by MD Marcos Rios> 04/06/23 1055 [facility] Work Phone: 1(138) 375-476109-28-2023 Miscellaneous Notes* Telephone Encounter - Linda Guillen RN - 04/06/2023 12:43 PM EDT Images from the original note were not included. Tapan Corona MD You 6 minutes ago (12:36 PM) Thanks. * Telephone Encounter - Linda Guillen RN - 04/06/2023 11:58 AM EDT Consult received. Dr Corona recommends pt be discharged and f/u next day in clinic. Spoke w/ KAYA Lingdry pan charger. Notified him of the above. States there [...] 's request for EGD phoned to KAYA Lingdry pan charger on 3T. He will inform the hospitalist. [...] for EGD. [place] [facility] [place]. [...] issue being urgent. [place] will go [place] [facility] [facility] Report called to ER and recent progress notes faxed as well. Colleen Solorio RN documented in this encounterT[facility]09-27-[facility]23 History and physical note Author Jordan Hare [facility] April 05, 2023 8:54pmNote Date/TimeSept2022 8:54pm[place] [address] Hospitalist H&P Signed Patient: Evan Gill MR#: [id number] : 1955 Acct:[id number] Age/Sex: 67 / F Adm Date: 3 Loc: Room: [address] [place] [address] Type: ADM INOo Attending Dr: Jordan Hare [...] cancer that she sees Dr. Houser at [facility] oncology. Recently has switched her [...] negative unless noted below or in HPI [facility] Medical History (Updated 04/05/23 @ 18:11 by [...] bone health 11/02/18 [History Confirmed 04/05/23] omega 4-ism-cdz-fish oil 1,000 mg (120 mg-180 mg) capsule [...] % (Auto) 38.8 % (.) 04/05/23 13:24 Owen % (Auto) 7.5 % (.) 04/05/23 13:24 Eos % (Auto) 1.1 % (.) 04/05/23 13:24 Baso % (Auto) 0.7 % (.) 04/05/23 13:24 Nucleat RBC Rel Count 0.1 /100 WBC (0-0.5) 04/05/23 13:24 Neut # (Auto) 3.4 x10E3/uL (1.8-7.7) 04/05/23 13:24 Lymph # (Auto) 2.6 x10E3/uL (1.00-4.8) 04/05/23 13:24 Owen # (Auto) 0.5 x10E3/uL (0.0-0.8) 04/05/23 13:24 [...] <Electronically signed by Jordan Hare DO> 04/05/232053 [facility] Work Phone: 1(361) 936-780509-25-2023 Miscellaneous Notes* Telephone Encounter - Colleen Solorio [...] to call if unable to comply. Colleen Solorio, RN documented in this encounterT[facility]09-25-2023 Nurse Note* Prachi Gill RN - 04/03/2023 12:02 PM EDT Status: Post-menopausal. Prachi Gill RN documented in this encounterTog[facility]09-25-2023 History of Present illness Narrative* [...] outlined. Del Hudson MD documented in this encounterTogus [facility]09-13-2023 Nurse Note* Prachi Gill RN - 03/22/2023 3:42 PM EDT Radiation Therapy - Patient Education Note PATIENT NAME: Evan Gill PATIENT March 22, 2023 [facility] FACILITY/LOCATION: [facility] READINESS TO LEARN Cognitive Ability: [...] need for social work, van service, and oil filters inspector. Pt haschosen to refuse oil filters inspector eval at this time. Signed by: Prachi Gill RN documented in this encounterTogus Va Medical Center09-13-2023 History of Present illness Narrative* Tapan Corona MD - 03/22/2023 2:42 PM EDT Images from the original note were not included. PATIENT NAME: Evan Gill CLINIC NO.: [id number] ATTENDING PHYSICIAN: Tapan Corona MD DATE OF [...] do not hesitate to contact me at [phone]. Tapan Corona MD Hematology/Medical Oncology [facility] Giordano spent a total of 30 minutes on the date of the service which included preparing to see the patient, [id number] patient care, completing clinical documentation, obtaining and/or reviewing separately obtained history, performing a medically appropriate examination, counseling and educating the pat ient/family/caregiver, and ordering medications, tests, or procedures. CC: documented in this encounterTogus Va Medical Center09-13-2023 History of Present illness Narrative* [...] Yes Pt has picked up medication from [facility] pharmacy DRUG-SPECIFIC EDUCATION: 1.) Verified patient [...] teaching topics as needed. Colleen Solorio, RN Bradder Pre Chemo Patient identified by name and date of . YES Confirmed date and time for chemotherapy ? YES Other appointments (labs, imaging) discussed? 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 Colleen Solorio RN documented in this encounterTogus [facility] Center09-13-2023 History of Present illness Narrative* Del Hudson MD - 03/22/2023 12:00 AM EDT EVAN GILL [id number] 03/22/2023 [facility] Department of Radiation Oncology Treatment Planning [...] Hudson M.D. 1:12 AM documented in this encounterTogus [facility] Medical Center09-12-2023 Miscellaneous Notes* Telephone Encounter - [...] Thanks Colleen Solorio RN documented in this encounterTogus Va Medical Center09-07-2023 History and physical note * [...] 2023 TIME: 12:45 PM documented in this encounterTogus Va Medical Center09-06-2023 Miscellaneous Notes* Ember Strauss - Joel Enciso MRI Tech - 03/15/2023 [...] 15, 2023 1:03 PM documented in this encounterTogus Va Medical Center09-06-2023 Progress note* Joel Diaz MRI Tech - 03/15/2023 12:00 PM EDT [...] and Intact, Site disposition Discontinued SIGNED BY: Joel Enciso check processing clerk March 15, 2023 1:03 PM [facility]08-30-[facility] History of Present illness Narrative* [...] GI: See HPI : urination is normal PROJECT INTERN: denies abnormal vaginal bleeding, no vaginal discharge, no breast mass/tenderness SKIN: no rash NEURO: no numbness or paresthesias and no weakness of the extremities As noted in HPI PROJECT INTERN: Pain: 0 on a 0-10 pain scale. [...] noted Hematologic: No signs of active bleeding. PROJECT INTERN: Deferred Rectal: Deferred RADIOLOGY/LABORATORY DATA: see HPI [...] defined for this encounter. documented in this encounterTogus Va Medical Center08-29-2023 Miscellaneous Notes* Telephone Encounter - Colleen Holland - 03/07/2023 9:42 AM EDT Patient is scheduled for 03/15 will give when patient is here tommorow. * Telephone Encounter - Brisa Zapata LPN - 03/07/2023 8:03 AM EDT MRI pelvis order pending your approval. Brisa Zapata LPN documented in this encounterTogus Va Medical Center08-01-2023 Evaluation note* Encounter Date Diagnosis Assessment Notes Treatment Notes Treatment Clinical Notes Feb, Change in bowel habits (ICD-10 - R19.4) Feb,Flatulence (ICD-10 - R14.3) Feb,loody stools (ICD-10 - K92.1) [employer] Other 04-24-2023 Evaluation note* Encounter Date Diagnosis Assessment Notes Treatment Notes Treatment Clinical Notes Oct, Anxiety and depression (ICD-10 - F41.8) Patient appears to be going great on the above medication. Patient is currently trying to get this medication through [employer] social work assistant. Oct,Hypertension (ICD-10 - I10) The patients blood pressure was WNL upon check in. Therefore, patient is to continue with the abovemedication. Oct,rimary osteoarthritis of right knee (ICD-10 - M17.11) Patient is scheduled to have right knee replacement with Dr. Lemon 12/07/22, patient will be having PST done in [place] in two weeks. Patient did get cardiac clearance from Dr. Calhoun. In mymedical opinion, the patient is clear to proceed with surgery. [employer] Other 03-27-2023 Evaluation note* Encounter Date Diagnosis [...] We will send a referral to [facility] for the clearance closer to her surgery date. Sep,trial fibrillation (ICD-10 - I48.91) Referral intiated to [facility]. Patient had stress test in 2016 with at maximum exercise had a burst of atrial fibrillation. Placed on aspirin and followed by cardiology. We will have cardiology clearanceprior to her upcoming knee replacement surgery. [employer] Other 02-27-2023 Evaluation note* Encounter Date Diagnosis Assessment Notes Treatment Notes Treatment Clinical Notes Aug, Anxiety and depression (ICD-10 - F41.8) [employer] Other 02-09-2023 Evaluation note* Encounter Date Diagnosis [...] sterile technique. Patient tolerated the injection well. [employer] Other 02-08-2023 Evaluation note* Encounter Date Diagnosis Assessment Notes Treatment Notes Treatment Clinical Notes Aug, Anxiety and depression (ICD-10 - F41.8) [employer] Other 11-09-2022 Evaluation note* Encounter Date Diagnosis Assessment Notes Treatment Notes Treatment Clinical Notes May, Bilateral primary osteoarthritis of knee (ICD-10 - M17.0) May,therAfter consent was obtained, the right knee was injected with Zilretta using sterile technique. Patient tolerated the injection well. Follow-up in 3 months. [employer] Other 11-02-2022 Evaluation note* Encounter Date Diagnosis [...] week for her right knee Zilretta injection. [employer] Other 10-12-2022 Evaluation note* Encounter Date Diagnosis Assessment Notes Treatment Notes Treatment Clinical Notes Apr, Stress incontinence in female (I CD-10 - N39.3) Apr,GERD (gastroesophageal reflux disease) (ICD-10 - K21.9) [employer] Other 08-05-2022 Evaluation note* Encounter Date Diagnosis Assessment Notes Treatment Notes Treatment Clinical Notes Feb, Pain in right knee (ICD-10 - M25 .561) Feb,ain in left knee (ICD-10 - M25.562) Feb,ilateral [...] injection well. 6. Follow up 3 months [employer] Other Chief complaint Narrative - ReportedEVAN GILL is being seen for a consultation for Charles Bazzi- POC R Knee replacement 12/07/22.- [facility] [address] DO Work Phone: [place] [address] Orthopedic Consult Note Signed Patient: Evan Gill MR#: [id number] : 1955 Acct:[id number] Age/Sex: 68 / F Adm Date: 4 Loc: ER Room: Type: [facility] ER Attending Dr: Copies to: Charles Bazzi,DO [...] negative unless noted below or in HPI [facility] Medical History (Updated 05/23/24 @ 10:23 by [...] health maintenance 11/02/18 [History Confirmed 05/23/24] omega 7-vkm-vvl-fish oil 1,000 mg (120 mg-180 mg) capsule (Fish Oil) 1 cap PO DAILY 11/02/18 [History Confirmed 05/23/24] lactobacillus comb no.10 20 billion cell capsule (Probiotic) 20,000 mmu cells PODAILY 03/06/23 [History Confirmed 05/23/24] ondansetron 8 mg disintegrating tablet 8 mg PO Q8H PRN Nausea 04/05/23 [History Confirmed 05/23/24] denosumab 60 mg/mL subcutaneous syringe (Prolia) 60 mg subcut [id number] 06/26/23 [History Confirmed 05/23/24] vortioxetine 10 mg [...] tissue swelling but no obvious fluctuance noted. [facility] [facility] normal. AIN, PIN, radial, median, ulnar nerves [...] % (Auto) 81.9, Lymph % (Auto) 9.0, Owen % (Auto) 7.4, Eos % (Auto) 1.1, Baso % (Auto) 0.6, Nucleat RBC Rel Count 0.0, Neut # (Auto) 8.5 H, Lymph # (Auto) 0.9 L, Owen # (Auto) 0.8, Eos # (Auto) 0.1, [...] Haji DO 05/22/241811 Signed By: 05/23/24 1311 [facility] Author Jorge A Haji [facility] HospitalNote Date/TimeNovember 2023 1:11pm [place] [address] Orthopedic Consult Note Signed Patient: Evan Gill MR#: [id number] : 1955 Acct:[id number] Age/Sex: 68 / F Adm Date: 4 Loc: ER Room: Type: [facility] ER Attending Dr: Copies to: Charles Bazzi,DO [...] negative unless noted below or in HPI [facility] Medical History (Updated 05/23/24 @ 10:23 by [...] health maintenance 11/02/18 [History Confirmed 05/23/24] omega 6-iis-vtk-fish oil 1,000 mg (120 mg-180 mg) capsule (Fish Oil) 1 cap PO DAILY 11/02/18 [History Confirmed 05/23/24] lactobacillus comb no.10 20 billion cell capsule (Probiotic) 20,000 mmu cells PODAILY 03/06/23 [History Confirmed 05/23/24] ondansetron 8 mg disintegrating tablet 8 mg PO Q8H PRN Nausea 04/05/23 [History Confirmed 05/23/24] denosumab 60 mg/mL subcutaneous syringe (Prolia) 60 mg subcut [id number] 06/26/23 [History Confirmed 05/23/24] vortioxetine 10 mg [...] tissue swelling but no obvious fluctuance noted. [facility] normal. AIN, PIN, radial, median, ulnar nerves [...] % (Auto) 81.9, Lymph % (Auto) 9.0, Owen % (Auto) 7.4, Eos % (Auto) 1.1, Baso % (Auto) 0.6, Nucleat RBC Rel Count 0.0, Neut # (Auto) 8.5 H, Lymph # (Auto) 0.9 L, Owen # (Auto) 0.8, Eos # (Auto) 0.1, [...] by Jorge A Haji DO> 05/23/24 1311 [facility] Work Phone: Discharge summary Author Jm Trujillo [facility] October 28, 2023 12:30pmNote Date/TimeApril 2023 12:27pm[place] [address] Discharge Summary Signed Patient: Evan Gill MR#: [id number] : 1955 Acct:[id number] Age/Sex: 68 / F Adm Date: 4 Loc: 4N Room: [address] [place] [address]: Jm Trujillo DO Copies to: [...] assisted low anterior resection for rectal cancer [facility], awaiting plans for ileostomy takedownin the next month or so. Presentation to hospital with intractable abdominal pain when the iliostomy suddeny stopped having any output. Summary Hospital Course Hospital course: This is a 68-year-old woman with a history of rectal cancer. Several months agoshe has undergone a laparoscopic assisted low anterior resection with rectal cancer at the [facility]. She has had a diverting [...] itself. The ER physicians did contact the [facility] because hercolorectal surgeon is based there but there were no beds available at that hospital. Therefore she was admitted to the hospital here to [facility]. She was seen in consultation by [...] 1 TABLET BY MOUTH ONCE DAILY omega 3-irf-vva-fish oil [Fish Oil] 1,000 mg (120 mg-180 [...] Prolia 60 mg/mL Syringe 60 mg SUBCUT [id number] Patient Comments: Last received in November 2022 [...] % (Auto) 66.8, Lymph % (Auto) 13.6, Owen % (Auto) 11.9, Eos % (Auto) 7.1, Baso % (Auto) 0.6, Nucleat RBC Rel Count 0.1, Neut # (Auto) 3.8, Lymph # (Auto) 0.8 L, Owen # (Auto) 0.7, Eos # (Auto) 0.4, Baso # (Auto) 0.0, PHA CreatinineClear 61.83, Sodium 141, Potassium 3.9, Chloride 104, Carbon Dioxide 31.8 H, Anion Gap 9.1, BUN 11,Creatinine 0.60, Est GFR (CKD-EPI) > 60.0 Documented By: Jm Trujillo DO 1217 Signed By: <Electronically signed by Jm Trujillo DO> 10/28/23 1230 [facility] Work Phone: evaluation noteNo assessment information available [facility] Work Phone: evaluation noteNo InformationNort Eggs Overnight Other evaluation note* Diagnosis Rectal adenocarcinoma (HCC)- Primary Malignant neoplasm of rectum [facility] Diagnosis Rectal adenocarcinoma (HCC)- Primary Malignant neoplasm of rectum Rectal mass- Primary Other symptoms involving digestive system documented in this encounter [facility] note* Diagnosis Rectal cancer (HCC)- Primary Malignant neoplasm of rectum documented in this encounter [facility] note* Diagnosis Rectal cancer (HCC)- Primary Malignant neoplasm of rectum documented in this encounter [facility] note* Diagnosis Rectal adenocarcinoma (HCC)- Primary Malignant neoplasm of rectum documented in this encounter [facility] note* Diagnosis Rectal adenocarcinoma (HCC)- Primary Malignant neoplasm of rectum [facility]* Diagnosis Onset Date Resolution Status Chest pain acute [facility] Work Phone: evaluation note* Diagnosis Onset Date Resolution Status Chest pain acuteColorectal canceracute [facility] Work Phone: evaluation note* Diagnosis Rectal cancer (HCC)- Primary Malignant neoplasm of rectum Dyspepsia Dyspepsia and other specified disorders of function of stomach documented [facility]* Diagnosis Rectal adenocarcinoma (HCC)- Primary Malignant neoplasm of rectum [facility]* Diagnosis Rectal cancer (HCC)- Primary Malignant neoplasm of rectum [facility]* Diagnosis Rectal adenocarcinoma (HCC)- Primary Malignant neoplasm of rectum [facility]* Diagnosis Muscle soreness- Primary Mylagia and myositis, unspecified [facility]* Diagnosis Rectal cancer (HCC)- Primary Malignant neoplasm of rectum [facility]* Diagnosis Dysuria- Primary [facility]* Diagnosis Dysuria- Primary Rectal adenocarcinoma (HCC) Malignant neoplasm of rectum [facility]* Diagnosis Muscle soreness- Primary Mylagia and myositis, unspecified documented in this encounter [facility] note* Diagnosis Rectal adenocarcinoma (HCC)- Primary Malignant neoplasm of rectum documented in this encounter [facility] note* Diagnosis Rectal adenocarcinoma (HCC)- Primary Malignant neoplasm of rectum documented in this encounter [facility] note* Diagnosis Screen for colon cancer- Primary Special screening for malignant neoplasms, colon Rectal cancer (HCC) Malignant neoplasm of rectum documented in this encounter [facility] note* Diagnosis Rectal cancer (HCC) Malignant neoplasm of rectum documented in this encounter [facility] note* Diagnosis Rectal cancer (HCC)- Primary Malignant neoplasm of rectum documented in this encounter [facility] note* Diagnosis Rectal cancer (HCC)- Primary Malignant neoplasm of rectum documented in this encounter [facility] note* Diagnosis Other chest pain- Primary [...] neoplasm of rectum documented in this encounter [facility] note* Diagnosis Rectal cancer (HCC)- Primary Malignant neoplasm of rectum documented in this encounter [facility] note* Diagnosis Follow-up examination after colorectal surgery- Primary Follow-up examination, following other surgery documented in this encounter [facility] note* Diagnosis Onset Date Resolution Status SBO (small bowel obstruction) [facility] Work Phone: Evaluation note* Diagnosis Onset Date Resolution Status Ileostomy status acuteRectal canceracuteSBO (small bowel obstruction)[facility] Work Phone: Evaluation note* Diagnosis History of rectal cancer Personal history of malignant neoplasm of rectum, rectosigmoid junction, and anus [facility] Diagnosis Muscle soreness- Primary Mylagia and myositis, unspecified [facility]* Diagnosis History of rectal cancer- Primary Personal history of malignant neoplasm of rectum, rectosigmoid junction, and anus documented [facility]* Diagnosis Onset Date Resolution Status SBO (small bowel obstruction) resolved [facility] Work Phone: Evaluation note* Diagnosis Onset Date Resolution Status SBO (small bowel obstruction) resolvedAcute UTIacutePartial small bowel obstructionacute [facility] Work Phone: Evaluation note* Diagnosis Onset Date Resolution Status Ileostomy status acuteSBO (small bowel obstruction)resolvedAbdominal painacuteAcute UTIacute Complete small bowel obstructionacutePartial small bowel obstructionacute Vomitingacute [facility] Work Phone: Evaluation note* Diagnosis Pain in right hip- Primary Pain in joint, pelvic region and thigh documented [facility]* Diagnosis Follow-up examination after colorectal surgery- Primary Follow-up examination, following other surgery [facility]* Diagnosis Rectal adenocarcinoma (HCC)- Primary Malignant neoplasm of rectum Follow-up examination after colorectal surgery- Primary Follow-up examination, following other surgery [facility]* Diagnosis Follow-up examination after colorectal surgery- Primary Follow-up examination, following other surgery Rectal cancer (HCC) 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 [facility]* Diagnosis History of rectal cancer- Primary Personal history of malignant neoplasm of rectum, rectosigmoid junction, and anus [facility]* Diagnosis Rectal adenocarcinoma (HCC) Malignant neoplasm of rectum Pre-op examination- Primary Preoperative examination, unspecified Atrial fibrillation, unspecified type (HCC) Essential hypertension Unspecified essential hypertension Hyperlipidemia, unspecified hyperlipidemia type Gastroesophageal reflux disease without esophagitis Esophageal reflux Other iron deficiency anemia Rectal cancer (HCC) Malignant neoplasm of rectum Mixed anxiety depressive disorder Dysthymic disorder documented [facility]* Diagnosis Pre-op examination- Primary Preoperative examination, unspecified Atrial fibrillation, unspecified type (HCC) Essential hypertension Unspecified essential hypertension Hyperlipidemia, unspecified hyperlipidemia type Gastroesophageal reflux disease without esophagitis Esophageal reflux Other iron deficiency anemia Rectal cancer (HCC) Malignant neoplasm of rectum Mixed anxiety depressive disorder Dysthymic disorder Rectal adenocarcinoma (HCC)- Primary Malignant neoplasm of rectum documented [facility]* Diagnosis Rectal adenocarcinoma (HCC)- Primary Malignant neoplasm of rectum [facility]* Diagnosis Pre-op examination- Primary Preoperative [...] junction, and anus documented [facility] encounter [facility]* Diagnosis Onset Date Resolution Status Admit Date Cellulitis of right middle finger acuteNovember 2023 11:20am [facility] Work Phone: Evaluation note* Diagnosis Pre-op examination- [...] neoplasm of rectum documented [facility] encounter [facility]* Diagnosis Pre-op examination- Primary Preoperative examination, unspecified Atrial fibrillation, unspecified type (HCC) Essential hypertension Unspecified essential hypertension Hyperlipidemia, unspecified hyperlipidemia type Gastroesophageal reflux disease without esophagitis Esophageal reflux Other iron deficiency anemia Rectal cancer (HCC) Malignant neoplasm of rectum Mixed anxiety depressive disorder Dysthymic disorder Rectal adenocarcinoma (HCC)- Primary Malignant neoplasm of rectum documented [facility] encounter [facility]* Diagnosis Pre-op examination- Primary Preoperative examination, unspecified Atrial fibrillation, unspecified type (HCC) Essential hypertension Unspecified essential hypertension Hyperlipidemia, unspecified hyperlipidemia type Gastroesophageal reflux disease without esophagitis Esophageal reflux Other iron deficiency anemia Rectal cancer (HCC) Malignant neoplasm of rectum Mixed anxiety depressive disorder Dysthymic disorder Low anterior resection syndrome documented in this encounter [facility] note* Diagnosis Pre-op examination- Primary Preoperative examination, unspecified Atrial fibrillation, unspecified type (HCC) Essential hypertension Unspecified essential hypertension Hyperlipidemia, unspecified hyperlipidemia type Gastroesophageal reflux disease without esophagitis Esophageal reflux Other iron deficiency anemia Rectal cancer (HCC) Malignant neoplasm of rectum Mixed anxiety depressive disorder Dysthymic disorder Muscle spasm- Primary Spasm of muscle Low anterior resection syndrome documented in this encounter [facility] note* Diagnosis Pre-op examination- Primary Preoperative [...] neoplasm of rectum documented in this encounter [facility] note* Diagnosis Pre-op examination- Primary Preoperative examination, unspecified Atrial fibrillation, unspecified type (HCC) Essential hypertension Unspecified essential hypertension Hyperlipidemia, unspecified hyperlipidemia type Gastroesophageal reflux disease without esophagitis Esophageal reflux Other iron deficiency anemia Rectal cancer (HCC) Malignant neoplasm of rectum Mixed anxiety depressive disorder Dysthymic disorder Muscle spasm- Primary Spasm of muscle Low anterior resection syndrome- Primary documented in this encounter [facility] note* Diagnosis Pre-op examination- Primary Preoperative [...] junction, and anus documented in this encounter [facility] note* Diagnosis Pre-op examination- Primary Preoperative [...] anterior resection syndrome documented in this encounter [facility] note* Diagnosis Pre-op examination- Primary Preoperative examination, unspecified Atrial fibrillation, unspecified type (HCC) Essential hypertension Unspecified essential hypertension Hyperlipidemia, unspecified hyperlipidemia type Gastroesophageal reflux disease without esophagitis Esophageal reflux Other iron deficiency anemia Rectal cancer (HCC) Malignant neoplasm of rectum Mixed anxiety depressive disorder Dysthymic disorder Encounter for follow-up surveillance of rectal cancer Unspecified follow-up examination [facility] Author Kalina Cullen [facility] HospitalAuthoredNovember 2024 10:21amSooner if needed, the ER if concerns,The above note written by Kalina Cullen LPN acting as human recorder, note dictated by Dr. Charles Bazzi [facility] Work Phone: History and physical note Author Tomi Greene Park[facility] HospitalNote Date/TimeMarch 2024 10:43[place] [address] Gastroenterology H&P Signed Patient: Evan Gill MR#: [id number] : 1955 Acct:[id number] Age/Sex: 69 / F Adm Date: 5 Loc: Room: Type: [facility] Attending Dr: Tomi Greene MD Copies to: DO Tomi Carrillo MD~ Date of Service: 09/18/2024 HISTORY & [...] signed by Tomi Greene MD> 09/18/24 1043 [facility] Work Phone: History general Narrative - Reported* Type Description Date Medical History colonoscopy 2004 Medical Gvfudqx4957 EKG doneMedical Qakmoen9710 pelvic exam done - follows with her OB/GYNMedical Rqbfnfr8552 mammogram done - follows with her OB/GYNMedical Zyqsqyr5059 CT scanMedical HistoryBlood Work done on 10-20-11 Lipid, CMP, CBC, T4, TSHMedical History12/31/12 Carotid USMedical History10/28/14 LabsMedical Pqpprki98/2015 colonoscopy-normalMedical Dspehvr69/17/15 EKG in officeMedical History10/14/2015 Mammogram-Dr. Cisneros History08/2015 Aorta & Carotid Screenings; moderate stenosisMedical History11/25/2016 BONE DENSITY SCANMedical Fztzqkz07/2017 GXT stress test-abnormalMedical Jcdrfle19/03/19 Cystoscopy w/ Dr. Duongedical Zsfmcbs71/[address] Hammondurgical Historygallbladder Surgical Historyankle and footSurgical Historyscreening colonocopy -Dr. Gonzalez06/22/15Hospitalization Historysee above FunCaptcha Other Hisbwds general Narrative - Reported* Type Description Date Medical History colonoscopy 2004 Medical Yxktscn3156 EKG doneMedical Azjhxbh9453 pelvic exam done - follows with her OB/GYNMedical Izialbn4612 mammogram done - follows with her OB/GYNMedical Syrnihb7233 CT scanMedical HistoryBlood Work done on 10-20-11 Lipid, CMP, CBC, T4, TSHMedical History12/31/12 Carotid USMedical History10/28/14 LabsMedical Iagnsnx16/2015 colonoscopy-normalMedical Farfhhp24/17/15 EKG in officeMedical History10/14/2015 Mammogram-Dr. LeakeMedical History08/2015 Aorta & Carotid Screenings; moderate stenosisMedical History11/25/2016 BONE DENSITY SCANMedical Rtobapl04/2017 GXT stress test-abnormalMedical Kawnven42/03/19 Cystoscopy w/ Dr. Swan Qyqdsyr80/[address] Cisneros Pasqbwv63/11/22 MammogramMedical HistoryNON SMOKERSurgical HistorygallbladderSurgical History ankle and footSurgical Historyscreening colonocopy -Dr. Gonzalez06/22/15 Hospitalization Historysee above FunCaptcha Other History general Narrative - Reported* Type Description Date Medical History colonoscopy 2004 Medical Expdyos6024 EKG doneMedical Hjchemn8361 pelvic exam done - follows with her OB/GYNMedical Gfkwgpx9855 mammogram done - follows with her OB/GYNMedical Xjyedll4977 CT scanMedical HistoryBlood Work done on 10-20-11 Lipid, CMP, CBC, T4, TSHMedical History12/31/12 Carotid USMedical History10/28/14 LabsMedical Rmmqilt12/2015 colonoscopy-normalMedical Omdzsts46/17/15 EKG in officeMedical History10/14/2015 Mammogram-Dr. Cisneros History08/2015 Aorta & Carotid Screenings; moderate stenosisMedical History11/25/2016 BONE DENSITY SCANMedical Hgehdxb07/2017 GXT stress test-abnormalMedical Iuyvqya24/03/19 Cystoscopy w/ Dr. Swan Akdppjm61/[address] Cisneros Varlebp07/11/22 MammogramMedical HistoryNON SMOKERMedical Uqwwuhe6011/08/23 Colonoscopy, Diagnosed with rectal cancerMedical Hxkqbqo6645/10 Stress Test, NegativeSurgical HistorygallbladderSurgical Historyankle and footSurgical Historyscreening colonocopy -Dr. Gonzalez06/22/15Hospitalization Historysee aboveHospitalization HistoryChest Pain FR04/05/23-04/06/23 FunCaptcha Other History of Present illness Narrative* Patient [...] follow in the future on as-needed basis -[facility] DO Work Phone: Hospital Discharge instructions Additional Instructions Resume your Keflex and Bactrim antibiotic upon completion of outpatient IV therapy. You have been scheduled for for vancomycin antibiotic infusions.[facility] Work Phone: Hospital Discharge instructions [...] to decrease risk of infection after surgery [facility] Work Phone: Reason for referral (narrative)* Outpatient Procedure (Routine) - Pending ReviewSpecialtyDiagnoses / ProceduresReferred By Contact [facility] Diagnoses Dyspepsia Procedures EGD DIAGNOSTIC ESOPHAGOGASTRODUODENOSCOPY TRANSORAL DIAGNOSTIC Tapan Corona MD [address] [place] [address] [address] Referral IDStatusReasonStlow moor DateExpiration DateVisits RequestedVisits [id number] Review Auto-Generated Referral / * Consult, Test, Treat (Routine) - AuthorizedSpecialtyDiagnoses / Procedures Referred By ContactReferred To ContactLoma Linda University Medical Centerenterology Diagnoses Rectal cancer (HCC) Procedures CONSULT TO GASTROENTEROLOGY OFFICE/OUTPATIENT [facility] 60-74 MINUTES Naheed Elias PA-C [address] [place] [address] [place] [address] Referral IDStatusReasonStart DateExpiration DateVisits RequestedVisits [id number] PCP Requested Referral / [facility] for referral (narrative)* Outpatient Procedure (Routine) - ClosedSpecialtyDiagnoses / ProceduresReferred By ContactReferred To Contact [facility] Diagnoses Rectal mass Procedures SIGMOIDOSCOPY SIGMOIDOSCOPY FLX DX W/COLLJ [place] BR/[place] [address] [place] [address] [place] [id number] Referral IDStatusReasonStart DateExpiration DateVisits RequestedVisits [id number] Auto-Generated Referral [facility] for referral (narrative)* Outpatient Procedure (Routine) - ClosedSpecialtyDiagnoses / ProceduresReferred By ContactReferred To Contact [facility] [place] Diagnoses Rectal cancer (HCC) Procedures SIGMOIDOSCOPY SIGMOIDOSCOPY FLX DX W/COLLJ SPEC BR/WA IF PFRMD Patricia [facility] [address] [place] [address] [facility] [address] [address] Referral IDStatusReasonStart DateExpiration DateVisits RequestedVisits [id number] Auto-Generated Referral [facility] for referral (narrative)* Consultation (Routine) - AuthorizedSpecialtyDiagnoses / ProceduresReferred By ContactReferred To ContactCardiology Diagnoses Other chest pain Essential hypertension Procedures Follow Up In Cardiology Marcos Rios MD [address] [facility] [address], [facility] [address] [place] [address] Marcos Rios MD [address] [facility], [facility] [address] [place] [address] Referral IDStatusReasonStlow moor DateExpiration DateVisits RequestedVisits [id number]/16/20241/ [facility] Work Phone: Redxqe for referral (narrative)No reason for referral information availableCleveland Clinic Children'S [facility] Work Phone: Reason for visit Narrative* Outpatient Procedure (Routine) - ClosedSpecialtyDiagnoses / ProceduresReferred By ContactReferred To [facility] [place] Diagnoses Rectal mass Procedures SIGMOIDOSCOPY SIGMOIDOSCOPY FLX DX W/COLLJ SPEC BR/[place] [address] [place] [address] [address] [facility] [address] [address] Referral IDStatusReasonStart DateExpiration DateVisits RequestedVisits [id number] Auto-Generated Referral [facility] for visit Narrative* Outpatient Procedure (Routine) - ClosedSpecialtyDiagnoses / ProceduresReferred By ContactReferred To Contact [facility] Diagnoses Rectal cancer (HCC) Procedures SIGMOIDOSCOPY SIGMOIDOSCOPY FLX DX W/COLLJ SPEC BR/WA IF PFRMD Cors [facility] [address] [place] [address] [facility] [place] [address] [place] [address] Referral IDStatusReasonStart DateExpiration DateVisits RequestedVisits [id number] Auto-Generated Referral [facility] for visit Narrative* Outpatient Procedure (Routine) - ClosedSpecialtyDiagnoses / ProceduresReferred By ContactReferred To Contact [facility] Diagnoses Encounter for follow-up surveillance of rectal cancer Procedures COLONOSCOPY SCREENING COLONOSCOPY FLX DX W/COLL[place] [address] [place] [address] Phone: tel: fax: [facility] [address] [place] [address] Referral IDStatusReasonStart DateExpiration DateVisits RequestedVisits [id number] Auto-Generated Referral [facility] Summary Purpose Family History No [...] of lungUnknowngrandparentDeceasedUnknownHeart diseaseUnknown Diabetes mellitusUnknown Advance Directives No Advanced Directives Records Found [...] Cellulitis of right finger May 11:11am [place] [facility] [place] [...] Cellulitis of right finger May 11:11am ER [facility] [place] MID[place]LE FINGER PAIN [...] 2024 8: 19am Other specified postprocedural states [facility] Chief Complaint Admit Date Rt middle finger May 22, 2024 11:48am Rt middle finger May 22, 2024 6:12pm call back May 23, 2024 8:15am L03.011 - Cellulitis of right finger Nov ember 2023 11:11am [place] [facility] [place]ER PAIN [...] 2024 11:20am Cellulitis of right middle finger Novem er 2023 11:20am Infected finger June 11, [...] Cellulitis of right finger May 11:11am [place] [facility] [place]ER PAIN [...] Cellulitis of right finger May 11:11am ER [facility] RT MIDDLE FINGER PAIN WX Novembe r [...] 04, 2024 2:43pm Other specified postprocedural states [facility] 2024 2:43pm Anxiety and depression September 09, 2024 9 :54am Colorectal cancer September 09, 2024 9:54 am Hyperlipidemia September 09, 2024 9:54 am Infected finger September 09, 2024 9:54 am Arthritis of finger September 27, 2024 11: 15am Infected finger September 27, 2024 11: 15am Other specified postprocedural states [facility] 2024 11:15am Chief Complaint Admit Date 4 [...] 2024 1 2:45pm Other specified postprocedural states [facility] 2024 12:45pm Arthritis of finger September 04, 2024 2:43pm Infected finger September 04, 2024 2:43pm Other specified postprocedural states [facility] 2024 2:43pm Anxiety and depression September 09, 2024 9 :54am Colorectal cancer September 09, 2024 9:54 am Hyperlipidemia September 09, 2024 9:54 am Infected finger September 09, 2024 9:54 am Arthritis of finger September 27, 2024 11: 15am Infected finger September 27, 2024 11: 15am Other specified postprocedural states [facility] 2024 11:15am Arthritis of finger October 18, 2024 11: 03am Infected finger October 18, 2024 11: 03am Other specified postprocedural states ril 2024 11:03am Chief Complaint Admit Date medicare wellness May 15, 2025 9 :39am Reason for Visit Admit Date Bilateral primary osteoarthritis of knee May 15, 2025 9:39am Colorectal cancer May 15, 2025 9 :39am Hyperglycemia May 15, 2025 9 :39am Hyperlipidemia May 15, 2025 9 :39am Medicare annual wellness visit, subseque nt May 15, 2025 9:39am Reason for Referral SpecialtyDiagnoses / ProceduresReferred By ContactReferred To ContactREHAB [facility] Diagnoses Pain in right hip Procedures CONSULT TO PHYSICAL THERAPY PHYSICAL THERAPY EVALUATION HIGH COMPLEX [address] [place] [address] [place] [address] [facility] [place] [address] [place] [address] Referral IDStatusReasonStart DateExpiration DateVisits RequestedVisits [id number] PCP Requested Referral Auto-Generated Referral [id number] / ProceduresReferred By ContactReferred To ContactGeneral Surgery Diagnoses Rectal cancer (HCC) Procedures CONSULT TO GENERAL SURGERY OFFICE/OUTPATIENT [facility] 60-74 MINUTES Tapan Corona MD [address] [place] [address] Referral IDStatusReasonStart DateExpiration DateVisits RequestedVisits [id number] PCP Requested Referral [id number] / ProceduresReferred By ContactReferred To ContactMR IMAGING Diagnoses Rectal cancer (HCC) Procedures MRI RECTUM WO/W IVCON MRI PELVIS W/O & W/CONTRAST MATERIAL Tapan Corona MD [address] [place] [address] [place] [address] Referral IDStatusReasonStart DateExpiration DateVisits RequestedVisits [id number] Auto-Generated Referral /[id number] / ProceduresReferred By ContactReferred To Contact Diagnoses Rectal adenocarcinoma (HCC) Procedures CT SIM PLANNING RADIATION ONCOLOGY THER RAD SIMULAJ-AIDED FIELD SETTING COMPLEX Del Hudson MD [address] [place] [address] Referral IDStatusReasonStlow moor DateExpiration DateVisits RequestedVisits [id number] Review PCP Requested Referral /[id number] / ProceduresReferred By ContactReferred To ContactMR IMAGING Diagnoses Rectal adenocarcinoma (HCC) Procedures MRI RECTUM WO/W IVCON MRI PELVIS W/O & W/CONTRAST MATERIAL Del Hudson MD [address] [place] [address] [place] [address] Referral IDStatusReasonStlow moor DateExpiration DateVisits RequestedVisits [id number] Auto-Generated Referral Reason diagnostic colonosco py Diagnosis 1 Change in bowel habi ts (R19.4) Diagnosis 2 Flatulence (R14.3) Diagnosis 3 Bloody stools (K92.1 ) Referral Organization [facility] Referring Provider First Name Charles Referring Provider Last Name Dixie Referring Provider Specialty Family Prac jennifer Referred Provider Specialty Gastroentero logy Referral Priority Routine Reason *FU 10/11 needs ca rdiac clearance (right knee replacement in November) ; [facility] Diagnosis 1 Atrial fibrillation (I48.91) Diagnosis 2 Primary osteoarthrit is of right knee (M17.11) Referral Organization [facility] Referring Provider First Name Charles Referring Provider Last Name Dixie Referring Provider Specialty Family Prac jennifer Referred Organization [facility] Referred Address [address] [facility] [address] ,[place], [place],[address] Referred Provider Specialty Cardiology Referral Priority Routine General Notes Fore, Dominga M 023 08:56:54 AM >Received today. [facility] office request us to fax the referral to them and they will review and call patient to schedule their appointment. Referral was fax Additional Source Comments INFORMATION SOURCE (unrecogn ized section and content) DATE CREATED AUTHOR 01/02/2018 [facility] DATE CREATED AUTHOR AUTHOR'S ORGANIZ ATION 10/27/2022 [employer] DATE CREATED AUTHOR AUTHOR'S ORGANIZ ATION 11/11/2022 [facility] DATE CREATED AUTHOR AUTHOR'S ORGANIZ ATION 04/25/2023 [facility] DATE CREATED AUTHOR AUTHOR'S ORGANIZ ATION 07/27/[address] [facility] DATE CREATED AUTHOR AUTHOR'S ORGANIZ ATION 11/22/2023 [facility] DATE CREATED AUTHOR AUTHOR'S ORGANIZ ATION 02/21/2024 [facility] DATE CREATED AUTHOR AUTHOR'S ORGANIZ ATION 03/08/2025 [facility] DATE CREATED AUTHOR AUTHOR'S ORGANIZ ATION 03/15/2025 [facility] DATE CREATED AUTHOR AUTHOR'S ORGANIZ ATION 04/18/2025 [facility] DATE CREATED AUTHOR AUTHOR'S ORGANIZ ATION 05/17/2025 [facility] REASON FOR VISIT (unrecogniz ed section and content) ReasonCommentsOrdersReasonCommentsRectal CancerReasonCommentsCare Coordination Treatment planReasonCommentsFirst Time Treatment EducationReasonCommentsPatient EducationReasonCommentsRefill RequestReasonOnset DateCommentsSimulation Request Form03/22/2023ReasonCommentsRadiotherapy On-treatment VisitReasonCommentsCare JxynegvumedmM9H7 treatment follow up callReasonCommentsRadiology Pre Procedure InstructionsReasonCommentsCare CoordinationClinical updateReasonCommentsRectal CancerOTVReasonCommentsCare CoordinationER recommendationsReasonCommentsRectal CancerReasonCommentsUrinalysisReasonCommentsAppointment reminderAppointment reminder call--spoke with patient--gave directions to the office.Specialty Diagnoses / ProceduresReferred By ContactReferred To ContactMR IMAGING Diagnoses Rectal cancer (HCC) Procedures MRI RECTUM WO/W IVCON MRI PELVIS W/O & W/CONTRAST MATERIAL Tapan Corona MD [address] [place] [address] [place] [address] Referral IDStatusReasonStart DateExpiration DateVisits RequestedVisits [id number] Auto-Generated Referral [id number] CancerFollow upReasonCommentsCare CoordinationMedication updateReasonCommentsFollow-up2 week [facility] [place] dcReasonComments Care CoordinationHospital d/c follow up callReasonCommentsCare [...] Follow-Up Post OpReversal 11/08/23ReasonCommentsFuture AppointmentReasonOnset DateComments Refill Inftpvw80/30/2024ReasonCommentsSignatera resultsSpecialtyDiagnoses / ProceduresReferred By ContactReferred To ContactMR IMAGING Diagnoses Rectal adenocarcinoma (HCC) Procedures MRI RECTUM WO/W IVCON MRI PELVIS W/O & W/CONTRAST MATERIAL Del Hudson MD [address] [place] [address] [place] [address] Mr Imaging [place] [address] Referral IDStatusReasonStart DateExpiration DateVisits RequestedVisits [id number] Auto-Generated Referral /[id number] CancerFollow upReasonCommentsPost Radiation Treatment Follow UpReasonCommentsEstablished PatientReasonComments Results, LabReasonCommentsEstablished PatientReasonCommentsManometrySpecialty Diagnoses / ProceduresReferred By ContactReferred To [facility] Diagnoses Low anterior resection syndrome Procedures [facility] ANORECTAL MANOMETRY [place] [address] [place] [address] Phone: tel: fax: [facility] [address] [place] [address] Referral IDStatusReasonStart DateExpiration DateVisits RequestedVisits [id number] Auto-Generated Referral [id number] Patient's CallReasonCommentsPT Eval SpecialtyDiagnoses / ProceduresReferred By ContactReferred To ContactREHAB AND [facility] Diagnoses Low anterior resection syndrome Procedures CONSULT TO PHYSICAL THERAPY PHYSICAL THERAPY EVALUATION HIGH COMPLEX 45 MINS Laisha Singer [place] [id number] [place] [address] Phone: tel: fax: [facility] [address] [place] [address] Referral IDStatusReasonStart DateExpiration DateVisits RequestedVisits [id number] PCP Requested Referral Auto-Generated Referral [id number] NMSpecialtyDiagnoses / Procedures Referred By ContactReferred To ContactCT IMAGING Diagnoses History of rectal cancer Rectal cancer (HCC) Procedures CT ABD/PEL W IVCON CT ABD & PELVIS W/CONTRAST Tapan Corona MD [address] [place] [address] Phone: tel: fax: [facility] [place] [address] Referral IDStatusReasonStart DateExpiration DateVisits RequestedVisits [id number] Auto-Generated Referral [id number] TherapySpecialtyDiagnoses / ProceduresReferred By ContactReferred To ContactREHAB AND SPORTS THERAPY INS Diagnoses Low anterior resection syndrome Procedures PHYSICAL THERAPY EVALUATION HIGH COMPLEX [address] [place] [address] [place] [address] Phone: tel: fax: [facility] [address] [place] [address] ReasonCommentshistory of colon cancerReasonCommentsFollow UpLow anterior resection syndrome Care Teams (unrecognized sec tion and content) Team Status: Active Member Role Status Dates Charles Bazzi DO Primary Care Provider Active Team Status: Inactive Member Role Status Dates Charles Bazzi DO Primary Care Provider Active Sta rt: May 22, 2024 End: May 22, 2024Amaury Davies ProviderActiveStart: May 22, 2024 End: May 22, 2024Jorge A Haji DOOther ProviderActiveStart: May 22, 2024 End: May 22, 2024 Team Status: Active Member Role Status Dates Charles Bazzi DO Primary Care Provider Active Sta rt: May 22, 2024 Amaury Davies ProviderActiveStart: May 22, 2024 Jorge A Haji DOAttending ProviderActiveStart: May 22, 2024 Team Status: Inactive Member Role Status Dates Charles Bazzi DO Primary Care Provider Active Sta rt: May 23, 2024 End: May 23, 2024Amaury Davies ProviderActiveStart: May 23, 2024 End: May 23, 2024 Team Status: Inactive Member Role Status Dates Charles Bazzi DO Primary Care Provider Active Sta rt: May 30, 2024 End: May 30, 2024Jogre A Haji DOAttending ProviderActiveStart: May 30, 2024 End: May 30, 2024 Team Status: Inactive Member Role Status Dates Charles Bazzi DO Primary Care Provider Active Sta rt: May 31, 2024 End: May 31Raissa Luna ProviderActiveStart: May 31, 2024 End: May 31, 2024 Team Status: Active Member Role Status Dates Charles Bazzi DO Primary Care Provider Active Sta rt: May 31, 2024 Raissa Lambert Provider, Other ProviderActiveStart: May 31, 2024 Team Status: Inactive Member Role Status Dates Charles Bazzi DO Primary Care Provide r, Attending Provider Active Start: June 04, 2024 End: June 04, 2024 Team Status: Inactive Member Role Status Dates Charles Bazzi DO Primary Care Provider Active Sta rt: June 11, 2024 End: June 11olleen R Ellen Chesterending ProviderActiveStart: June 11, 2024 End: June 11, 2024 Team Status: Inactive Member Role Status Seda Bazzi DO Primary Care Provide r, Attending Provider Active Start: June 11, 2024 End: June 11, 2024 Team Status: Inactive Member Role Status Seda Bazzi DO Primary Care Provider Active Sta rt: June 25, 2024 End: June 25olleen R Calvey , MDAttending ProviderActiveStart: June 25, 2024 End: June 25, 2024 Team Status: Inactive Member Role Status Seda Bazzi DO Primary Care Provider Active Sta rt: July 17, 2024 End: July 17olleen R Yesenia , NOEttending ProviderActiveStart: July 17, 2024 End: July 17, 2024 Team Status: Inactive Member Role Status Seda Bazzi DO Primary Care Provider Active Sta rt: August 14, 2024 End: August 14olldamian R Yesenia , NOEttending ProviderActiveStart: August 14, 2024 End: August 14, [...] Charles Bazzi , Primary Care Provider Active Sta rt: September 30, 2023 Patrice Springer , DOEmergency ProviderActiveStart: September 30, 2023 Miguel Ángel Delgadillo MDAdmit Provider, Attending ProviderActiveStart: September 30, 2023 Team Status: Inactive Member Role Status Dates Charles Bazzi DO Primary Care Provider, Attending Provi johnson Active Team Status: Inactive Member Role Status Dates Charles Bazzi DO Primary Care Provider Active Raissa Medrano II ProviderActiveTeam MemberRelationshipSpecialty Start DateEnd Date Charles Bazzi [address] [place] [phone] PCP - GeneralFamily Medicine03/16/23 Colleen Solorio RN [address] [place] [address] Specialty Care CoordinatorHematology/Oncology03/22/23 Tapan Corona MD [address] [place], [place] [id number] PhysicianHematology/Oncology03/22/23 Nahede Elias PA-C [address] [place] [address] [place] [phone] Physician AssistantHematology/Oncology03/22/23Team MemberRelationshipSpecialty Start DateEnd Date Charles Bazzi [address] [place] [phone] PCP - GeneralFamily Medicine03/16/23 Colleen Solorio RN [address] [facility] [address] [place], [facility] Specialty Care CoordinatorHematology/Oncology03/22/23 Tapan Corona MD [address] [place] [facility] PhysicianHematology/Oncology03/22/23 Naheed Elias PA-C [address] [facility] [address] [place] [phone] Physician AssistantHematology/Oncology03/22/23Team MemberRelationshipSpecialty Start DateEnd Date Charles Bazzi [address] [place], [place] [phone] PCP - GeneralFamily Medicine03/16/23 Colleen Solorio RN [address] [facility] [address] [place] [phone] Specialty Care CoordinatorHematology/Oncology03/22/23 Tapan Corona MD [address] [place] [phone] PhysicianHematology/Oncology03/22/23 Naheed Elias PA-C [address] [facility] [address] [place] [phone] Physician AssistantHematology/Oncology03/22/23Team MemberRelationshipSpecialty Start DateEnd Date Charles Bazzi [address] [place] [phone] PCP - GeneralFamily Medicine03/16/23 Colleen Solorio RN [address] [facility] [place] [place] [address] Specialty Care CoordinatorHematology/Oncology03/22/23 Tapan Corona MD [address] [place] [address] PhysicianHematology/Oncology03/22/23 Naheed Elias PA-C [address] [place] [address] Physician AssistantHematology/Oncology03/22/23Team MemberRelationshipSpecialty Start DateEnd Date Charles Bazzi [address] [place] [address] PCP - GeneralFamily Medicine03/16/23 Colleen Solorio RN [address] [place] [address] Specialty Care CoordinatorHematology/Oncology03/22/23 Tapan Corona MD [address] [place] [address] PhysicianHematology/Oncology03/22/23 Naheed Elias PA-C [address] [place] [address] Physician AssistantHematology/Oncology03/22/23Team MemberRelationshipSpecialty Start DateEnd Date Charles Bazzi [address] [place] [address] PCP - GeneralFamily Medicine03/16/23 Colleen Solorio, RN [address] [place] [address] Specialty Care CoordinatorHematology/Oncology03/22/23 Tapan Corona MD [address] [facility] [place] [address] PhysicianHematology/Oncology03/22/23 Naheed Elias PA-C [address] [facility] [place] [address] Physician AssistantHematology/Oncology03/22/23Team MemberRelationshipSpecialty Start DateEnd Date Charles Bazzi [address] [place], [place] [phone] PCP - GeneralFamily Medicine03/16/23 Colleen Solorio RN [address] [facility] [address] [place] [phone] Specialty Care CoordinatorHematology/Oncology03/22/23 Tapan Corona MD [address] [place] [address] [place] [phone] PhysicianHematology/Oncology03/22/23 Naheed Elias PA-C [address] [place] [address] [place] [address] Physician AssistantHematology/Oncology03/22/23Te MemberRelationshipSpecialty Start DateEnd Date Charles Bazzi [address] [place], [place] [phone] PCP - GeneralFamily Medicine03/16/23 Colleen Solorio RN [address] [facility] [place] [address] Specialty Care CoordinatorHematology/Oncology03/22/23 Tapan Corona MD [address] [place] [address] [place] [address] PhysicianHematology/Oncology03/22/23 Naheed Elias PA-C [address] [place] [address] [place] [address] Physician AssistantHematology/Oncology03/22/23 Team Status: Inactive Member Role Status Dates Charles Dixie , DO Primary Care Provider Active Imhank Greene , MDAttending ProviderActive Team Status: Active Member Role Status Dates Charles Bazzi , DO Primary Care Provider Active Damien Avendaño ProviderActiveMichael Friweis , DOAdmit Provider, Attending ProviderActive Team Status: Inactive Member Role Status Dates Charles Bazzi , Primary Care Provider Active Damien Avendaño ProviderActiveMichael Frings , DOAdmit Provider ActiveAggie Harmon RNOther ProviderActiveW Michael Stokes , DOOther ProviderActiveTroy Tabares MDOther ProviderActiveWicorinna Espinosa MDOther ProviderActiveModestiney Rois MDOther ProviderActiveBlas Villagomez MDOther ProviderActiveDonna Delvis Saucedo APRNOther Provider ActiveAmanda Mora MDOther ProviderActiveMohamtwan Campos MDOther ProviderActiveTabelle Shah MDOther ProviderActiveCarol Ranjit Orozco CARDIOVASCULAR RADIOLOGIC TECHNOLOGIST-BCOther ProviderActiveWendy Ocasio MDOther ProviderActiveFirmelisa Negron , MDAttending ProviderActiveTapan Corona MDOther ProviderActiveTeam MemberRelationship SpecialtyStart DateEnd Date AlejopachecoCharles [address] [place] [phone] PCP - GeneralFamily Medicine03/16/23 Colleen Solorio, RN [address] [facility] [place] [place] [address] Specialty Care CoordinatorHematology/Oncology03/22/23 Tapan Corona MD [address] [place] [address] [place] [address] PhysicianHematology/Oncology03/22/23 Naheed Elias PA-C [address] [facility] [place] [address] Physician AssistantHematology/Oncology03/22/23Team MemberRelationshipSpecialty Start DateEnd Date Charles Bazzi [address] [place], [place] [phone] PCP - Generalmily Medicine03/16/23 Colleen Solorio RN [address] [facility] [place] [address] Specialty Care CoordinatorHematology/Oncology03/22/23 Tapan Corona MD [address] [facility] [place] [address] PhysicianHematology/Oncology03/22/23 Naheed Elias PA-C [address] [facility] [place] [address] Physician AssistantHematology/Oncology03/22/23Team MemberRelationshipSpecialty Start DateEnd Date Charles Bazzi [address] [place], [place] [phone] PCP - Generalmily Medicine03/16/23 Colleen Solorio RN [address] [facility] [place] [address] Specialty Care CoordinatorHematology/Oncology03/22/23 Tapan Corona MD [address] [facility] [place] [address] PhysicianHematology/Oncology03/22/23 Naheed Elias PA-C [address] [facility] [place] [address] Physician AssistantHematology/Oncology03/22/23Team MemberRelationshipSpecialty Start DateEnd Date Charles Bazzi [address] [place], [place] [phone] PCP - GeneralFamily Medicine03/16/23 Colleen Solorio RN [address] [facility] [place] [address] Specialty Care CoordinatorHematology/Oncology03/22/23 Tapan Corona MD [address] [place], [place] [address]ry [facility] [place] [address] PhysicianHematology/Oncology03/22/23 Naheed Elias PA-C [address] [place], [place] [address]RY [facility] [place] [address] Physician AssistantHematology/Oncology03/22/23Team MemberRelationshipSpecialty Start DateEnd Date Charles Bazzi [address] [place], [place] [phone] PCP - GeneralFamily Medicine03/16/23 Colleen Solorio RN [address] [facility] [place] [place] [address] Specialty Care CoordinatorHematology/Oncology03/22/23 Tapan Corona MD [address] [facility] [place] [address] PhysicianHematology/Oncology03/22/23 Naheed Elias PA-C [address] [facility] [place] [address] Physician AssistantHematology/Oncology03/22/23Team MemberRelationshipSpecialty Start DateEnd Date Charles Bazzi [address] [place], [place] [phone] PCP - GeneralFamily Medicine03/16/23 Colleen Solorio RN [address] [facility] [place] [place] [address] Specialty Care CoordinatorHematology/Oncology03/22/23 Tapan Corona MD [address] [facility] [place] [address] PhysicianHematology/Oncology03/22/23 Naheed Elias PADesireeC [address] [facility] [address] [place] [phone] Physician AssistantHematology/Oncology03/22/23Te MemberRelationshipSpecialty Start DateEnd Date Charles Bazzi [address] [place], [place] [phone] PCP - Generalmily Medicine03/16/23 Colleen Solorio RN [address] [facility] [address] [place], [facility] Specialty Care CoordinatorHematology/Oncology03/22/23 Tapan Corona MD [address] [facility] [place] [address] PhysicianHematology/Oncology03/22/23 Naheed Elias PAGabriel [address] [facility] [place] [address] Physician AssistantHematology/Oncology03/22/23Team MemberRelationshipSpecialty Start DateEnd Date Charles Bazzi [address] [place] [address] PCP - GeneralFamily Medicine03/16/23 Colleen Solorio, KAYA [address] [place] [address] Specialty Care CoordinatorHematology/Oncology03/22/23 Tapan Corona MD [address] [facility] [place] [address] PhysicianHematology/Oncology03/22/23 Naheed Elias PA-C [address] [facility] [place] [place] [address] Physician AssistantHematology/Oncology03/22/23Team MemberRelationshipSpecialty Start DateEnd Date Charles Bazzi [address] [place] [phone] PCP - GeneralFamily Medicine03/16/23 Colleen Solorio RN [address] [facility] [place] [place] [address] Specialty Care CoordinatorHematology/Oncology03/22/23 Tapan Corona MD [address] [facility] [place] [address] PhysicianHematology/Oncology03/22/23 Naheed Elias PA-C [address] [facility] [place] [place] [address] Physician AssistantHematology/Oncology03/22/23Team MemberRelationshipSpecialty Start DateEnd Date Charles Bazzi [address] [place] [address] PCP - GeneralFamily Medicine03/16/23 Colleen Solorio RN [address] [facility] [place] [address] Specialty Care CoordinatorHematology/Oncology03/22/23 Tapan Corona MD [address] [place] [phone] PhysicianHematology/Oncology03/22/23 Naheed Elias PA-C [address] [facility] [address] [place], [facility] Physician AssistantHematology/Oncology03/22/23Team MemberRelationshipSpecialty Start DateEnd Date Charles Bazzi [address] [place] [phone] PCP - GeneralFamily Medicine03/16/23Team MemberRelationshipSpecialtyStart DateEnd Date Charles Bazzi [address] [place] [phone] PCP - GeneralFamily Medicine03/16/23 Colleen Solorio RN [address] [facility] [address] [place], [facility] Specialty Care CoordinatorHematology/Oncology03/22/23 Tapan Corona MD [address] [facility] [place] [phone] PhysicianHematology/Oncology03/22/23 Naheed Elias PAGabriel [address] [place] [address] Physician AssistantHematology/Oncology03/22/23Team MemberRelationshipSpecialty Start DateEnd Date Charles Bazzi [address] [place] [phone] PCP - GeneralFamily Medicine03/16/23 Colleen Solorio RN [address] [facility] [place] [place] [address] Specialty Care CoordinatorHematology/Oncology03/22/23 Tapan Corona MD [address] [facility] [place] [address] PhysicianHematology/Oncology03/22/23 Naheed Elias PA-C [address] [facility] [place] [address] Physician AssistantHematology/Oncology03/22/23Te MemberRelationshipSpecialty Start DateEnd Date Charles Bazzi [address] [place] [phone] PCP - GeneralFamily Medicine03/16/23 Colleen Solorio RN [address] [facility] [place] [place] [address] Specialty Care CoordinatorHematology/Oncology03/22/23 Tapan Corona MD [address] [facility] [place] [address] PhysicianHematology/Oncology03/22/23 Naheed Elias PA-C [address] [facility] [place] [place] [address] Physician AssistantHematology/Oncology03/22/23Team MemberRelationshipSpecialty Start DateEnd Date Charles Bazzi [address] [place] [address] PCP - GeneralFamily Medicine03/16/23 Colleen Solorio RN [address] [facility] [place] [place] [address] Specialty Care CoordinatorHematology/Oncology03/22/23 Tapan Cornoa MD [address] [facility] [place] [address] PhysicianHematology/Oncology03/22/23 Naheed Elias PA-C [address] [facility] [address] [place], [facility] Physician AssistantHematology/Oncology03/22/23Team MemberRelationshipSpecialty Start DateEnd Date Charles Bazzi [address] [place] [phone] PCP - GeneralFamily Medicine03/16/23 Colleen Solorio RN [address] [facility] [place] [place] [address] Specialty Care CoordinatorHematology/Oncology03/22/23 Tapan Corona MD 417 [facility] [place] [phone] PhysicianHematology/Oncology03/22/23 Naheed Elias PA-C [address] [place] [address] Physician AssistantHematology/Oncology03/22/23Team MemberRelationshipSpecialty Start DateEnd Date Charles Bazzi [address] [place], [place] [phone] PCP - Generalmily Medicine03/16/23 Colleen Solorio RN [address] [facility] [place] [place] [address] Specialty Care CoordinatorHematology/Oncology03/22/23 Tapan Corona MD [address] [facility] [place] [address] PhysicianHematology/Oncology03/22/23 Naheed Elias, PA-C [address] [facility] [place] [place] [address] Physician AssistantHematology/Oncology03/22/23Team MemberRelationshipSpecialty Start DateEnd Date Charles Bazzi [address] [place] [phone] PCP - GeneralFamily Medicine03/16/23 Colleen Solorio RN [address] [facility] [place] [place] [address] Specialty Care CoordinatorHematology/Oncology03/22/23 Tapan Corona MD [address] [place] [address] PhysicianHematology/Oncology03/22/23 Naheed Elias PA-C [address] [place] [address] Physician AssistantHematology/Oncology03/22/23 Team Status: Inactive Member Role Status Dates Charles Bazzi DO Primary Care Provider Active Raissa Norris ProviderActiveTeam MemberRelationshipSpecialtyStart DateEnd Date Charles Bazzi DO PCP - General10/05/22Team MemberRelationshipSpecialtyStart DateEnd Date Charles Bazzi [address] [place], [place] [phone] PCP - [facility] Medicine03/16/23 Colleen Solorio RN [address] [facility] [place] [address] Specialty Care CoordinatorHematology/Oncology03/22/23 Tapan Corona MD [address] [facility] [place] [address] PhysicianHematology/Oncology03/22/23 Naheed Elias, PA-C [address] [facility] [place] [address] Physician AssistantHematology/Oncology03/22/23 Maryuri Rodriguez LSW Social Worker07/21/23Team MemberRelationshipSpecialtyStart DateEnd Date Charles Bazzi [address] [place], [place] [phone] PCP - [facility] Medicine03/16/23 Colleen Solorio RN [address] [facility] [place] [address] Specialty Care CoordinatorHematology/Oncology03/22/23 Tapan Corona MD [address] [facility] [place] [address] PhysicianHematology/Oncology03/22/23 Naheed Elias, PA-C [address] [facility] [place] [address] Physician AssistantHematology/Oncology03/22/23 Maryuri Rodriguez, [facility] Social Worker07/21/23Team MemberRelationshipSpecialtyStart DateEnd Date Charles Bazzi [address] [place], [place] [phone] PCP - GeneralFamily Medicine03/16/23 Colleen Solorio RN [address] [place] [address] Specialty Care CoordinatorHematology/Oncology03/22/23 Tapan Corona MD [address] [facility] [place] [address] PhysicianHematology/Oncology03/22/23 Naheed Elias, PA-C [address] [facility] [place] [address] Physician AssistantHematology/Oncology03/22/23 Maryuri Rodriguez, [facility] Social Worker07/21/23Team MemberRelationshipSpecialtyStart DateEnd Date Charles Bazzi [address] [place], [place] [address] PCP - GeneralFamily Medicine03/16/23 Colleen Solorio RN [address] [facility] [place] [place] [address] Specialty Care CoordinatorHematology/Oncology03/22/23 Tapan Corona MD [address] [facility] [place] [address] PhysicianHematology/Oncology03/22/23 Naheed Elias, PADesireeC [address] [facility] [place] [address] Physician AssistantHematology/Oncology03/22/23 Maryuri Rodriguez, [facility] Social Worker07/21/23Team MemberRelationshipSpecialtyStart DateEnd Date Charles Bazzi [address] [place], [place] [phone] PCP - GeneralFamily Medicine03/16/23 Colleen Solorio RN [address] [place] [address] Specialty Care CoordinatorHematology/Oncology03/22/23 Tapan Corona MD [address] [facility] [place] [address] PhysicianHematology/Oncology03/22/23 Naheed Elias PA-C [address] [facility] [place] [address] Physician AssistantHematology/Oncology03/22/23 Maryuri Rodriguez, [facility] Social Worker07/21/23Team MemberRelationshipSpecialtyStart DateEnd Date Charles Bazzi [address] [place] [phone] PCP - GeneralFamily Medicine03/16/23 Colleen Solorio RN [address] [place] [address] Specialty Care CoordinatorHematology/Oncology03/22/23 Tapan Corona MD [address] [facility] [place] [address] PhysicianHematology/Oncology03/22/23 Naheed Elias PA-C [address] [facility] [place] [address] Physician AssistantHematology/Oncology03/22/23 Maryuri Rodriguez, IN STORE REPRESENTATIVE Social Worker07/21/23Team MemberRelationshipSpecialtyStart DateEnd Date Charles Bazzi [address] [place] [phone] PCP - GeneralFanmly Medicine03/16/23 Colleen Solorio, KAYA [address] [facility] [place] [place] [address] Specialty Care CoordinatorHematology/Oncology03/22/23 Tapan Corona MD 417 [facility] [place] [address] PhysicianHematology/Oncology03/22/23 Naheed Elias, [place] [address] [place] [address] Physician AssistantHematology/Oncology03/22/23 Maryuri Rodriguez [facility] Social Worker07/21/23 Team Status: Inactive Member Role [...] 2023 Team MemberRelationshipSpecialtyStart DateEnd Date Charles Bazzi [address] [place] [phone] PCP - GeneralFamily Medicine03/16/23 Colleen Solorio RN [address] [place] [address] Specialty Care CoordinatorHematology/Oncology03/22/23 Tapan Corona MD [address] [facility] [place] [address] PhysicianHematology/Oncology03/22/23 Naheed Elias PA-C [address] [facility] [place] [address] Physician AssistantHematology/Oncology03/22/23 Maryuri Rodriguez, MARTIN Social Worker07/21/23Team MemberRelationshipSpecialtyStart DateEnd Date Charles Bazzi [address] [place], [place] [phone] PCP - GeneralFamily Medicine03/16/23 Colleen Solorio RN [address] [facility] [place] [place] [address] Specialty Care CoordinatorHematology/Oncology03/22/23 Tapan Corona MD [address] [facility] [place] [address] PhysicianHematology/Oncology03/22/23 Naheed Elias PA-C [address] [facility] [place] [address] Physician AssistantHematology/Oncology03/22/23 Maryuri Rodriguez, MARTIN Social Worker07/21/23 Team Status: Active Member Role Status Dates Charles Bazzi DO Primary Care Provider Active Sta rt: September 30, 2023 End: October 01, 2023Blaise Starks ProviderActiveStart: September 30, 2023 End: October 01, 2023Miguel Ángel Delgadillo MDAdmit Provider, Attending Provider, Other ProviderActiveStart: September 30, [...] Gonzales ProviderActiveStart: October 26, 2023 Patrice Hooks MDAdmit Provider, Attending ProviderActiveStart: October 26, 2023 Team Status: Inactive Member Role Status Dates Charles Bazzi DO Primary Care Provider Active Sta rt: October 26, 2023 End: October 27Yair Chacne ProviderActiveStart: October 26, 2023 End: October 27ndnancy Hooks MDAdmit ProviderActiveStart: October 26, 2023 End: October 28, 2023Jm Trujillo DOAttending ProviderActiveStart: October 26, 2023 End: October 27colin Eckert DOOther ProviderActiveStart: October 26, 2023 End: October 28, 2023 Team Status: Active Member Role Status Dates Charles Bazzi DO Primary Care Provider Active Sta rt: October 26, 2023 Yair Gonzales ProviderActiveStart: October 26, 2023 Patrice Hooks MDAdmit Provider, Other ProviderActiveStart: October 26, 2023 Ethel Saucedo APRNAttennikole ProviderActiveStart: October 26, 2023 Team MemberRelationshipSpecialtyStart DateEnd Date Charles Bazzi [address] [place] [phone] PCP - GeneralFamily Medicine03/16/23 Colleen Solorio, RN [address] [facility] [place] [place] [address] Specialty Care CoordinatorHematology/Oncology03/22/23 Tapan Corona MD [address] [facility] [place] [address] PhysicianHematology/Oncology03/22/23 Naheed Elias PA-C [address] [place], [place] [address]RY [facility] [place] [address] Physician AssistantHematology/Oncology03/22/23 Maryuri Rodriguez LSW Social Worker07/21/23Team MemberRelationshipSpecialtyStart DateEnd Date Charles Bazzi [address] [place] [phone] PCP - GeneralFamily Medicine03/16/23 Colleen Solorio RN [address] [facility] [place] [place] [address] Specialty Care CoordinatorHematology/Oncology03/22/23 Tapan Corona MD [address] [place], [place] [address]ry [facility] [place] [address] PhysicianHematology/Oncology03/22/23 Naheed Elias PA-C [facility] [address] [facility] [place] [address] Physician AssistantHematology/Oncology03/22/23 Maryuri Rodriguez, MARTIN Social Worker07/21/23Team MemberRelationshipSpecialtyStart DateEnd Date Charles Bazzi [address] [place] [phone] PCP - GeneralFamily Medicine03/16/23 Colleen Solorio, RN [address] [facility] [place] [place] [address] Specialty Care CoordinatorHematology/Oncology03/22/23 Tapan Corona MD [address] [facility] [place] [address] PhysicianHematology/Oncology03/22/23 Naheed Elias PA-C [address] [place] [address] [place] [address] Physician AssistantHematology/Oncology03/22/23 Maryuri Rodriguez LSW Social Worker07/21/23Team MemberRelationshipSpecialtyStart DateEnd Date Charles Bazzi [address] [place] [phone] PCP - GeneralFamily Medicine03/16/23 Colleen Solorio RN [address] [facility] [place] [place] [address] Specialty Care CoordinatorHematology/Oncology03/22/23 Tapan Corona MD [address] [place] [address] [place] [address] PhysicianHematology/Oncology03/22/23 Naheed Elias PA-C [address] [place] [address] [place] [address] Physician AssistantHematology/Oncology03/22/23 Maryuri Rodriguez, MARTIN Social Worker07/21/23Team MemberRelationshipSpecialtyStart DateEnd Date Charles Bazzi [address] [place] [phone] PCP - GeneralFamily Medicine03/16/23 Colleen Solorio RN [address] [facility] [place] [address] Specialty Care CoordinatorHematology/Oncology03/22/23 Tapan Corona MD [address] [facility] [place] [address] PhysicianHematology/Oncology03/22/23 Naheed Elias PA-C [address] [place], [place] [address] [facility] [place] [place] [address] Physician AssistantHematology/Oncology03/22/23 Maryuri Rodriguez, IN STORE REPRESENTATIVE Social Worker07/21/23Team MemberRelationshipSpecialtyStart DateEnd Date Charles Bazzi [address] [place] [phone] PCP - GeneralFamily Medicine03/16/23 Colleen Solorio RN [address] [facility] [place] [address] Specialty Care CoordinatorHematology/Oncology03/22/23 Tapan Corona MD [address] [facility] [place] [address] PhysicianHematology/Oncology03/22/23 Naheed Elias PA-C [address] [place] [address] Physician AssistantHematology/Oncology03/22/23 Maryuri Rodriguez, IN STORE REPRESENTATIVE Social Worker07/21/23Team MemberRelationshipSpecialtyStart DateEnd Date Charles Bazzi [address] [phone] PCP - GeneralFamily Medicine03/16/23 Tapan Corona MD [address] [facility] [place] [address] PhysicianHematology/Oncology03/22/23 Naheed Elias PA-C [address] [facility] [place] [address] Physician AssistantHematology/Oncology03/22/23 Maryuri Rodriguez LSW Social Worker07/21/23Team MemberRelationshipSpecialtyStart DateEnd Date Charles Bazzi [address] [phone] PCP - GeneralFamily Medicine03/16/23 Colleen Solorio RN [address] [facility] [place] [address] Specialty Care CoordinatorHematology/Oncology Tapan Corona MD [address] [facility] [place] [address] PhysicianHematology/Oncology03/22/23 Naheed Elias PA-C [address] [place] [address] Physician AssistantHematology/Oncology03/22/23Team MemberRelationshipSpecialty Start DateEnd Date Charles Bazzi [address] [place] [phone] PCP - GeneralFamily Medicine03/16/23 Tapan Corona MD [address] [place] [address] PhysicianHematology/Oncology03/22/23 Naheed Elias PA-C [address] [facility] [place] [address] Physician AssistantHematology/Oncology03/22/23 Maryuri Rodriguez, IN STORE REPRESENTATIVE Social Worker07/21/23Team MemberRelationshipSpecialtyStart DateEnd Date Charles Bazzi [address] [place] [phone] PCP - GeneralFamily Medicine03/16/23 Tapan Corona MD [address] [place] [address] PhysicianHematology/Oncology03/22/23 Naheed Elias, PAGabriel [address] [facility] [place] [address] Physician AssistantHematology/Oncology03/22/23 Maryuri Rodriguez, [facility] Social Worker07/21/23 Team Status: Active Member Role [...] Team MemberRelationshipSpecialtyStart DateEnd Date Charles Bazzi DO [address] [place] [phone] PCP - General12/13/22 Team Status: Active Member Role Status Dates Charles Bazzi DO Primary Care Provider Active Sta rt: August 19, 2024 Raissa Arriaga ProviderActiveStart: August 19, 2024 Team Status: Inactive Member Role Status Dates Charles Bazzi DO Primary Care Provider Active Sta rt: August 20, 2024 End: August 20Ellen Lunaending ProviderActiveStart: August 20, 2024 End: August 20, 2024 Team Status: Inactive Member Role Status Seda Bazzi DO Primary Care Provider Active Sta rt: August 26, 2024 End: August 26Ellen Lunaending ProviderActiveStart: August 26, 2024 End: August 26, 2024Team MemberRelationshipSpecialtyStart DateEnd Date Charles Bazzi [address] [place] [phone] PCP - GeneralVirginia Gay Hospitally Medicine03/16/23 Tapan Corona MD [address] [place] [address] [place] [address] PhysicianHematology/Oncology03/22/23 Naheed Elias, PADesireeC [address] [place] [address] [place] [address] Physician AssistantHematology/Oncology03/22/23 Maryuri Rodriguez LSW Social Worker07/21/23Team MemberRelationshipSpecialtyStart DateEnd Toby Dhillonpacheco Charles Joseph [address] [place] [phone] PCP - GeneralFamily Medicine03/16/23 Tapan Corona MD [address] [facility] [place] [address] PhysicianHematology/Oncology03/22/23 Naheed Elias PA-C [address] [facility] [place] [address] Physician AssistantHematology/Oncology03/22/23 Maryuri Rodriguez [facility] Social Worker07/21/23 Team Status: Active Member Role Status Seda Bazzi DO Primary Care Provider Active Sta rt: August 26, 2024 Raissa Lambert Provider, Other ProviderActiveStart: August 26, 2024 Team Status: Inactive Member Role Status Seda Bazzi DO Primary Care Provider Active Sta rt: September 04, 2024 End: September 04Raissa Luna ProviderActiveStart: September 04, 2024 End: September 04, 2024 Team Status: Inactive Member Role Status Seda Bazzi DO Primary Care Provide r, Attending Provider Active Start: September 09, 2024 End: September 09, 2024 Team Status: Inactive Member Role Status Seda Bazzi DO Primary Care Provider Active Sta rt: September 18, 2024 End: September 18, 2024Tomi Greene MDAttending ProviderActiveStart: September 18, 2024 End: September 18, 2024 Team Status: Active Member Role Status Seda Bazzi DO Primary Care Provider Active Sta rt: September 18, 2024 Imhank Greene MDAttending Provider, Other ProviderActiveStart: September 18, 2024 Team Status: Active Member Role Status Seda Bazzi DO Primary Care Provider Active Sta rt: September 27, 2024 Raissa Lambert ProviderActiveStart: September 27, 2024 Team Status: Inactive Member Role Status Dates Charles Bazzi DO Primary Care Provider Active Sta rt: September 27, 2024 End: September 27ollRaissa Bonilla ProviderActiveStart: September 27, 2024 End: September 27, 2024 Team Status: Active Member Role Status Dates Charles Bazzi DO Primary Care Provider Active Sta rt: October 18, 2024 Raissa Lambert ProviderActiveStart: October 18, 2024 Team Status: Inactive Member Role Status Dates Charles Bazzi DO Primary Care Provider Active Sta rt: October 18, 2024 End: October 18ollEllen Bonillagerardo ProviderActiveStart: October 18, 2024 End: October 18, 2024Team MemberRelationshipSpecialtyStart DateEnd Date Charles Bazzi [address] [place] [phone] PCP - GeneralFamily Medicine03/16/23 Tapan Corona MD [address] [place] [address] PhysicianHematology/Oncology03/22/23 Naheed Eilas PA-C [address] [place] [address] [place] [address] Physician AssistantHematology/Oncology03/22/23 Maryuri Rodriguez LSW Social Worker07/21/23Team MemberRelationshipSpecialtyStart DateEnd Date Charles Bazzi [address] [place] [phone] PCP - GeneralFamily Medicine03/16/23 Tapan Corona MD [address] [place] [address] PhysicianHematology/Oncology03/22/23 Naheed Elias PA-C [address] [facility] [place] [address] Physician AssistantHematology/Oncology03/22/23 Maryuri Rodriguez LSW Social Worker07/21/23Team MemberRelationshipSpecialtyStart DateEnd Date Charles Bazzi [address] [place], [place] [phone] PCP - GeneralFamily Medicine03/16/23 Tapan Corona MD [address] [place], [place] [address]ry [facility] [place] [address] PhysicianHematology/Oncology03/22/23 Naheed Elias PA-C [address] [facility] [place] [address] Physician AssistantHematology/Oncology03/22/23 Maryuri Rodriguez LSW Social Worker07/21/23Team MemberRelationshipSpecialtyStart DateEnd Date Charles Bazzi [address] [place] [phone] PCP - GeneralFamily Medicine03/16/23 Tapan Corona MD [address] [facility] [place] [address] PhysicianHematology/Oncology03/22/23 Naheed Elias PA-C [address] [facility] [place] [address] Physician AssistantHematology/Oncology03/22/23 Maryuri Rodriguez LSW Social Worker07/21/23Team MemberRelationshipSpecialtyStart DateEnd Date Charles Bazzi [address] [place] [phone] PCP - GeneralFamily Medicine03/16/23 Tapan Corona MD [address] [facility] [place] [address] PhysicianHematology/Oncology03/22/23 Naheed Elias PA-C [address] [place] [address] [place] [address] Physician AssistantHematology/Oncology03/22/23 Maryuri Rodriguez LSW Social Worker07/21/23Team MemberRelationshipSpecialtyStart DateEnd Date Charles Bazzi [address] [place], [place] [phone] PCP - GeneralFamily Medicine03/16/23 Tapan Corona MD [address] [place] [address] PhysicianHematology/Oncology03/22/23 Naheed Elias PA-C [address] [place] [address] [place] [address] Physician AssistantHematology/Oncology03/22/23 Maryuri Rodriguez [facility] Social Worker07/21/23Team MemberRelationshipSpecialtyStart DateEnd Date Charles Bazzi [address] [place], [place] [phone] PCP - GeneralFamily Medicine03/16/23 Tapan Corona MD [address] [facility] [place] [address] PhysicianHematology/Oncology03/22/23 Naheed Elias PA-C [address] [place] [address] Physician AssistantHematology/Oncology03/22/23 Maryuri Rodriguez, [facility] Social Worker07/21/23Team MemberRelationshipSpecialtyStart DateEnd Date Charles Bazzi [address] [place], [place] [phone] PCP - GeneralFamily Medicine03/16/23 Tapan Corona MD [address] [place] [address] PhysicianHematology/Oncology03/22/23 Naheed Elias, PA-C [address] [facility] [place] [address] Physician AssistantHematology/Oncology03/22/23 Maryuri Rodriguez, [facility] Social Worker07/21/23Team MemberRelationshipSpecialtyStart DateEnd Date Charles Bazzi DO PCP - General12/13/22Team MemberRelationshipSpecialtyStart DateEnd Date Charles Bazzi [address] [place] [phone] PCP - GeneralFamily Medicine03/16/23 Tapan Corona MD [address] [place] [address] PhysicianHematology/Oncology03/22/23 Naheed Elias PA-C [address] [place] [address] [place] [address] Physician AssistantHematology/Oncology03/22/23 Maryuri Rodriguez LSW Social Worker07/21/23Team MemberRelationshipSpecialtyStart DateEnd Date Charles Bazzi DO PCP - General12/13/22 Team Status: Active Member Role/Relationship Status Dates Amanda Chester MD Specialist Active Elizabeth Sierra [employer]-CSpecialistActiveKaa Cj , MDSpecialistActiveCorey Aliya , DOSpecialistActiveBrerocio Bazzi , DOPrimary Care ProviderActive Team Status: Active Member Role/Relationship Status Seda Bazzi DO Primary Care Provider Active Sta rt: March 04, 2025 JASVIR Falk-CAttending ProviderActiveStart: March 04, 2025 Team Status: Inactive Member Role/Relationship Status Seda Baziz DO Primary Care Provider Active Sta rt: May 15, 2025 End: May 15yani Bazzi DOAttending ProviderActiveStart: May 15, 2025 End: May 15, 2025 Team Status: Inactive Member Role/Relationship Status Seda Bazzi DO Primary Care Provider Active Sta rt: May 15, 2025 End: May 15yani Bazzi DOAttending ProviderActiveStart: May 15, 2025 End: May 15, 2025 Goals (unrecognized section and content) Goals may be documented in a n alternate section Source Comments (unrecognize d section and content) In the event this informatio n is protected by the Federal Confidentiality of Alcohol and Drug Abuse Patient Records regulations: The Federal rules restrict any use of the information to criminally investigate or prosecute any alcohol or drug abuse patient.[facility] the event this information is protected by the Federal Confidentiality of Alcohol and Drug Abuse Patient Records regulations: The Federal rules restrict any use of the information to criminally investigate or prosecute any alcohol or drug abuse patient.[facility] CenterIn the event this information is protected by the Federal Confidentiality of Alcohol and Drug Abuse Patient Records regulations: The Federal rules restrict any use of the information to criminally investigate or prosecute any alcohol or drug abuse patient.[facility] CenterIn the event this information is protected by the Federal Confidentiality of Alcohol and Drug Abuse Patient Records regulations: The Federal rules restrict any use of the information to criminally investigate or prosecute any alcohol or drug abuse patient.[facility] CenterIn the event this information is protected by the Federal Confidentiality of Alcohol and Drug Abuse Patient Records regulations: The Federal rules restrict any use of the information to criminally investigate or prosecute any alcohol or drug abuse patient.[facility] CenterIn the event this information is protected by the Federal Confidentiality of Alcohol and Drug Abuse Patient Records regulations: The Federal rules restrict any use of the information to criminally investigate or prosecute any alcohol or drug abuse patient.[facility] CenterIn the event this information is protected by the Federal Confidentiality of Alcohol and Drug Abuse Patient Records regulations: The Federal rules restrict any use of the information to criminally investigate or prosecute any alcohol or drug abuse patient.[facility] CenterIn the event this information is protected by the Federal Confidentiality of Alcohol and Drug Abuse Patient Records regulations: The Federal rules restrict any use of the information to criminally investigate or prosecute any alcohol or drug abuse patient.[facility] CenterIn the event this information is protected by the Federal Confidentiality of Alcohol and Drug Abuse Patient Records regulations: The Federal rules restrict any use of the information to criminally investigate or prosecute any alcohol or drug abuse patient.[facility] CenterIn the event this information is protected by the Federal Confidentiality of Alcohol and Drug Abuse Patient Records regulations: The Federal rules restrict any use of the information to criminally investigate or prosecute any alcohol or drug abuse patient.[facility] CenterIn the event this information is protected by the Federal Confidentiality of Alcohol and Drug Abuse Patient Records regulations: The Federal rules restrict any use of the information to criminally investigate or prosecute any alcohol or drug abuse patient.[facility] CenterIn the event this information is protected by the Federal Confidentiality of Alcohol and Drug Abuse Patient Records regulations: The Federal rules restrict any use of the information to criminally investigate or prosecute any alcohol or drug abuse patient.[facility] CenterIn the event this information is protected by the Federal Confidentiality of Alcohol and Drug Abuse Patient Records regulations: The Federal rules restrict any use of the information to criminally investigate or prosecute any alcohol or drug abuse patient.[facility] CenterIn the event this information is protected by the Federal Confidentiality of Alcohol and Drug Abuse Patient Records regulations: The Federal rules restrict any use of the information to criminally investigate or prosecute any alcohol or drug abuse patient.[facility] CenterIn the event this information is protected by the Federal Confidentiality of Alcohol and Drug Abuse Patient Records regulations: The Federal rules restrict any use of the information to criminally investigate or prosecute any alcohol or drug abuse patient.[facility] CenterIn the event this information is protected by the Federal Confidentiality of Alcohol and Drug Abuse Patient Records regulations: The Federal rules restrict any use of the information to criminally investigate or prosecute any alcohol or drug abuse patient.[facility] CenterIn the event this information is protected by the Federal Confidentiality of Alcohol and Drug Abuse Patient Records regulations: The Federal rules restrict any use of the information to criminally investigate or prosecute any alcohol or drug abuse patient.[facility] CenterIn the event this information is protected by the Federal Confidentiality of Alcohol and Drug Abuse Patient Records regulations: The Federal rules restrict any use of the information to criminally investigate or prosecute any alcohol or drug abuse patient.[facility] CenterIn the event this information is protected by the Federal Confidentiality of Alcohol and Drug Abuse Patient Records regulations: The Federal rules restrict any use of the information to criminally investigate or prosecute any alcohol or drug abuse patient.[facility] CenterIn the event this information is protected by the Federal Confidentiality of Alcohol and Drug Abuse Patient Records regulations: The Federal rules restrict any use of the information to criminally investigate or prosecute any alcohol or drug abuse patient.[facility] CenterIn the event this information is protected by the Federal Confidentiality of Alcohol and Drug Abuse Patient Records regulations: The Federal rules restrict any use of the information to criminally investigate or prosecute any alcohol or drug abuse patient.[facility] CenterIn the event this information is protected by the Federal Confidentiality of Alcohol and Drug Abuse Patient Records regulations: The Federal rules restrict any use of the information to criminally investigate or prosecute any alcohol or drug abuse patient.[facility] CenterIn the event this information is protected by the Federal Confidentiality of Alcohol and Drug Abuse Patient Records regulations: The Federal rules restrict any use of the information to criminally investigate or prosecute any alcohol or drug abuse patient.[facility] CenterIn the event this information is protected by the Federal Confidentiality of Alcohol and Drug Abuse Patient Records regulations: The Federal rules restrict any use of the information to criminally investigate or prosecute any alcohol or drug abuse patient.[facility] CenterIn the event this information is protected by the Federal Confidentiality of Alcohol and Drug Abuse Patient Records regulations: The Federal rules restrict any use of the information to criminally investigate or prosecute any alcohol or drug abuse patient.[facility] CenterIn the event this information is protected by the Federal Confidentiality of Alcohol and Drug Abuse Patient Records regulations: The Federal rules restrict any use of the information to criminally investigate or prosecute any alcohol or drug abuse patient.[facility] CenterIn the event this information is protected by the Federal Confidentiality of Alcohol and Drug Abuse Patient Records regulations: The Federal rules restrict any use of the information to criminally investigate or prosecute any alcohol or drug abuse patient.[facility] CenterIn the event this information is protected by the Federal Confidentiality of Alcohol and Drug Abuse Patient Records regulations: The Federal rules restrict any use of the information to criminally investigate or prosecute any alcohol or drug abuse patient.[facility] CenterIn the event this information is protected by the Federal Confidentiality of Alcohol and Drug Abuse Patient Records regulations: The Federal rules restrict any use of the information to criminally investigate or prosecute any alcohol or drug abuse patient.[facility] CenterIn the event this information is protected by the Federal Confidentiality of Alcohol and Drug Abuse Patient Records regulations: The Federal rules restrict any use of the information to criminally investigate or prosecute any alcohol or drug abuse patient.[facility] CenterIn the event this information is protected by the Federal Confidentiality of Alcohol and Drug Abuse Patient Records regulations: The Federal rules restrict any use of the information to criminally investigate or prosecute any alcohol or drug abuse patient.[facility] CenterIn the event this information is protected by the Federal Confidentiality of Alcohol and Drug Abuse Patient Records regulations: The Federal rules restrict any use of the information to criminally investigate or prosecute any alcohol or drug abuse patient.[facility] the event this information is protected by the Federal Confidentiality of Alcohol and Drug Abuse Patient Records regulations: The Federal rules restrict any use of the information to criminally investigate or prosecute any alcohol or drug abuse patient.[facility] CenterIn the event this information is protected by the Federal Confidentiality of Alcohol and Drug Abuse Patient Records regulations: The Federal rules restrict any use of the information to criminally investigate or prosecute any alcohol or drug abuse patient.[facility] CenterIn the event this information is protected by the Federal Confidentiality of Alcohol and Drug Abuse Patient Records regulations: The Federal rules restrict any use of the information to criminally investigate or prosecute any alcohol or drug abuse patient.[facility] CenterIn the event this information is protected by the Federal Confidentiality of Alcohol and Drug Abuse Patient Records regulations: The Federal rules restrict any use of the information to criminally investigate or prosecute any alcohol or drug abuse patient.[facility] CenterIn the event this information is protected by the Federal Confidentiality of Alcohol and Drug Abuse Patient Records regulations: The Federal rules restrict any use of the information to criminally investigate or prosecute any alcohol or drug abuse patient.[facility] CenterIn the event this information is protected by the Federal Confidentiality of Alcohol and Drug Abuse Patient Records regulations: The Federal rules restrict any use of the information to criminally investigate or prosecute any alcohol or drug abuse patient.[facility] CenterIn the event this information is protected by the Federal Confidentiality of Alcohol and Drug Abuse Patient Records regulations: The Federal rules restrict any use of the information to criminally investigate or prosecute any alcohol or drug abuse patient.[facility] CenterIn the event this information is protected by the Federal Confidentiality of Alcohol and Drug Abuse Patient Records regulations: The Federal rules restrict any use of the information to criminally investigate or prosecute any alcohol or drug abuse patient.[facility] CenterIn the event this information is protected by the Federal Confidentiality of Alcohol and Drug Abuse Patient Records regulations: The Federal rules restrict any use of the information to criminally investigate or prosecute any alcohol or drug abuse patient.[facility] CenterIn the event this information is protected by the Federal Confidentiality of Alcohol and Drug Abuse Patient Records regulations: The Federal rules restrict any use of the information to criminally investigate or prosecute any alcohol or drug abuse patient.[facility] CenterIn the event this information is protected by the Federal Confidentiality of Alcohol and Drug Abuse Patient Records regulations: The Federal rules restrict any use of the information to criminally investigate or prosecute any alcohol or drug abuse patient.[facility] CenterIn the event this information is protected by the Federal Confidentiality of Alcohol and Drug Abuse Patient Records regulations: The Federal rules restrict any use of the information to criminally investigate or prosecute any alcohol or drug abuse patient.[facility] CenterIn the event this information is protected by the Federal Confidentiality of Alcohol and Drug Abuse Patient Records regulations: The Federal rules restrict any use of the information to criminally investigate or prosecute any alcohol or drug abuse patient.[facility] CenterIn the event this information is protected by the Federal Confidentiality of Alcohol and Drug Abuse Patient Records regulations: The Federal rules restrict any use of the information to criminally investigate or prosecute any alcohol or drug abuse patient.[facility] CenterIn the event this information is protected by the Federal Confidentiality of Alcohol and Drug Abuse Patient Records regulations: The Federal rules restrict any use of the information to criminally investigate or prosecute any alcohol or drug abuse patient.[facility] CenterIn the event this information is protected by the Federal Confidentiality of Alcohol and Drug Abuse Patient Records regulations: The Federal rules restrict any use of the information to criminally investigate or prosecute any alcohol or drug abuse patient.[facility] CenterIn the event this information is protected by the Federal Confidentiality of Alcohol and Drug Abuse Patient Records regulations: The Federal rules restrict any use of the information to criminally investigate or prosecute any alcohol or drug abuse patient.[facility] CenterIn the event this information is protected by the Federal Confidentiality of Alcohol and Drug Abuse Patient Records regulations: The Federal rules restrict any use of the information to criminally investigate or prosecute any alcohol or drug abuse patient.[facility] CenterIn the event this information is protected by the Federal Confidentiality of Alcohol and Drug Abuse Patient Records regulations: The Federal rules restrict any use of the information to criminally investigate or prosecute any alcohol or drug abuse patient.[facility] CenterIn the event this information is protected by the Federal Confidentiality of Alcohol and Drug Abuse Patient Records regulations: The Federal rules restrict any use of the information to criminally investigate or prosecute any alcohol or drug abuse patient.[facility] CenterIn the event this information is protected by the Federal Confidentiality of Alcohol and Drug Abuse Patient Records regulations: The Federal rules restrict any use of the information to criminally investigate or prosecute any alcohol or drug abuse patient.[facility] CenterIn the event this information is protected by the Federal Confidentiality of Alcohol and Drug Abuse Patient Records regulations: The Federal rules restrict any use of the information to criminally investigate or prosecute any alcohol or drug abuse patient.[facility] CenterIn the event this information is protected by the Federal Confidentiality of Alcohol and Drug Abuse Patient Records regulations: The Federal rules restrict any use of the information to criminally investigate or prosecute any alcohol or drug abuse patient.[facility] CenterIn the event this information is protected by the Federal Confidentiality of Alcohol and Drug Abuse Patient Records regulations: The Federal rules restrict any use of the information to criminally investigate or prosecute any alcohol or drug abuse patient.[facility] CenterIn the event this information is protected by the Federal Confidentiality of Alcohol and Drug Abuse Patient Records regulations: The Federal rules restrict any use of the information to criminally investigate or prosecute any alcohol or drug abuse patient.[facility] CenterIn the event this information is protected by the Federal Confidentiality of Alcohol and Drug Abuse Patient Records regulations: The Federal rules restrict any use of the information to criminally investigate or prosecute any alcohol or drug abuse patient.[facility] CenterIn the event this information is protected by the Federal Confidentiality of Alcohol and Drug Abuse Patient Records regulations: The Federal rules restrict any use of the information to criminally investigate or prosecute any alcohol or drug abuse patient.[facility] CenterIn the event this information is protected by the Federal Confidentiality of Alcohol and Drug Abuse Patient Records regulations: The Federal rules restrict any use of the information to criminally investigate or prosecute any alcohol or drug abuse patient.[facility] CenterIn the event this information is protected by the Federal Confidentiality of Alcohol and Drug Abuse Patient Records regulations: The Federal rules restrict any use of the information to criminally investigate or prosecute any alcohol or drug abuse patient.[facility] CenterIn the event this information is protected by the Federal Confidentiality of Alcohol and Drug Abuse Patient Records regulations: The Federal rules restrict any use of the information to criminally investigate or prosecute any alcohol or drug abuse patient.[facility] CenterIn the event this information is protected by the Federal Confidentiality of Alcohol and Drug Abuse Patient Records regulations: The Federal rules restrict any use of the information to criminally investigate or prosecute any alcohol or drug abuse patient.[facility] CenterIn the event this information is protected by the Federal Confidentiality of Alcohol and Drug Abuse Patient Records regulations: The Federal rules restrict any use of the information to criminally investigate or prosecute any alcohol or drug abuse patient.[facility] CenterIn the event this information is protected by the Federal Confidentiality of Alcohol and Drug Abuse Patient Records regulations: The Federal rules restrict any use of the information to criminally investigate or prosecute any alcohol or drug abuse patient.[facility] CenterIn the event this information is protected by the Federal Confidentiality of Alcohol and Drug Abuse Patient Records regulations: The Federal rules restrict any use of the information to criminally investigate or prosecute any alcohol or drug abuse patient.[facility] CenterIn the event this information is protected by the Federal Confidentiality of Alcohol and Drug Abuse Patient Records regulations: The Federal rules restrict any use of the information to criminally investigate or prosecute any alcohol or drug abuse patient.[facility] CenterIn the event this information is protected by the Federal Confidentiality of Alcohol and Drug Abuse Patient Records regulations: The Federal rules restrict any use of the information to criminally investigate or prosecute any alcohol or drug abuse patient.[facility] CenterIn the event this information is protected by the Federal Confidentiality of Alcohol and Drug Abuse Patient Records regulations: The Federal rules restrict any use of the information to criminally investigate or prosecute any alcohol or drug abuse patient.[facility] CenterIn the event this information is protected by the Federal Confidentiality of Alcohol and Drug Abuse Patient Records regulations: The Federal rules restrict any use of the information to criminally investigate or prosecute any alcohol or drug abuse patient.[facility] CenterIn the event this information is protected by the Federal Confidentiality of Alcohol and Drug Abuse Patient Records regulations: The Federal rules restrict any use of the information to criminally investigate or prosecute any alcohol or drug abuse patient.[facility] CenterIn the event this information is protected by the Federal Confidentiality of Alcohol and Drug Abuse Patient Records regulations: The Federal rules restrict any use of the information to criminally investigate or prosecute any alcohol or drug abuse patient.[facility] CenterIn the event this information is protected by the Federal Confidentiality of Alcohol and Drug Abuse Patient Records regulations: The Federal rules restrict any use of the information to criminally investigate or prosecute any alcohol or drug abuse patient.[facility] CenterIn the event this information is protected by the Federal Confidentiality of Alcohol and Drug Abuse Patient Records regulations: The Federal rules restrict any use of the information to criminally investigate or prosecute any alcohol or drug abuse patient.[facility] CenterIn the event this information is protected by the Federal Confidentiality of Alcohol and Drug Abuse Patient Records regulations: The Federal rules restrict any use of the information to criminally investigate or prosecute any alcohol or drug abuse patient.[facility] CenterIn the event this information is protected by the Federal Confidentiality of Alcohol and Drug Abuse Patient Records regulations: The Federal rules restrict any use of the information to criminally investigate or prosecute any alcohol or drug abuse patient.[facility] CenterIn the event this information is protected by the Federal Confidentiality of Alcohol and Drug Abuse Patient Records regulations: The Federal rules restrict any use of the information to criminally investigate or prosecute any alcohol or drug abuse patient.[facility] CenterIn the event this information is protected by the Federal Confidentiality of Alcohol and Drug Abuse Patient Records regulations: The Federal rules restrict any use of the information to criminally investigate or prosecute any alcohol or drug abuse patient.[facility] CenterIn the event this information is protected by the Federal Confidentiality of Alcohol and Drug Abuse Patient Records regulations: The Federal rules restrict any use of the information to criminally investigate or prosecute any alcohol or drug abuse patient.[facility] CenterIn the event this information is protected by the Federal Confidentiality of Alcohol and Drug Abuse Patient Records regulations: The Federal rules restrict any use of the information to criminally investigate or prosecute any alcohol or drug abuse patient.[facility] CenterIn the event this information is protected by the Federal Confidentiality of Alcohol and Drug Abuse Patient Records regulations: The Federal rules restrict any use of the information to criminally investigate or prosecute any alcohol or drug abuse patient.[facility] CenterIn the event this information is protected by the Federal Confidentiality of Alcohol and Drug Abuse Patient Records regulations: The Federal rules restrict any use of the information to criminally investigate or prosecute any alcohol or drug abuse patient.[facility] FOR RECORDS PERTAINING TO PATIENTS [...] BE BASED ON THE PRIMARY CLINICAL RECORDS. [facility] [employer] [facility]. provides no warranty or guarantee of the accuracy or completeness of information in this document.
[2025-06-09 07:27] VITALS: BP 132/80; PULSE 81; TEMP 36.3; O2SAT 96
[2025-06-09 08:02] VITALS: BP 129/65; PULSE 74; O2SAT 99
[2025-06-09] MEDS: METHYLPREDNISOLONE ACETATE 40 MG/ML VIAL INJ (08:03)
[2025-06-09] MEDS: BUPIVACAINE HCL 0.25% PF 25 MG/10 ML VIAL 5 ML INJ (08:03)
[2025-06-09 08:04] VITALS: BP 135/65; PULSE 72; O2SAT 100
--- NOTE | 2025-06-09 08:04 | W.PM.PROCNOT ---
Date of procedure: 06/09/25 Pre-op diagnosis: Pain due to left knee osteoarthritis Post-op diagnosis: same as pre-op Procedure: Procedure: Left genicular nerve block Medications: Bupivacaine 0.25% 4cc, depomedrol 40mg The patient was taken to the procedures suite and positioned in the supine position. I explained the details of the procedure to the patient including the risks, benefits and alternatives. We had an informed discussion and the patient verbalized understanding and signed the consent form. All questions were answered appropriately.? A 'time out' procedure was performed. The patient was identified, the chart was reviewed, and all allergies were confirmed. Laterality was conducted and marked. The left knee was marked with a sterile marking pen, prepped times three, and sterilely draped.? Under fluoroscopic guidance, branches of the genicular nerves were localized.? First the superior medial genicular nerve was localized where the femoral shaft meets the medial epicondyle.? Skin was anesthetized with 1% lidocaine.? A 25-gauge 3.5 in needle was advanced in a coaxial manner in the AP view.? This was repeated on the superior lateral genicular nerve where the femoral shaft meets the lateral epicondyle and the inferior medial genicular nerve where the medial tibial shaft meets the tibial epicondyle. After negative aspiration for blood or other bodily fluids, 1cc of medication was injected at each of the three sites. The needles were removed and the sites of injection were bandaged. The patient was transported to the postoperative area in good condition. Anesthesia: Local Surgeon: Priscilla Robledo Pathology: none sent Condition: stable Disposition: no change
== END 2025-06-09 08:10 | disposition home or self-care (01) ==
PROVIDERS: PCP Family Medicine; Visit Provider Anesthesiology
DX: M17.12 Unilateral primary osteoarthritis, left knee (principal); M25.562 Pain in left knee; G89.29 Other chronic pain
CPT/HCPCS: 64454; J0665; J1010